=== PATIENT | male | born 1945 | race Caucasian/White ===

== ENCOUNTER 2018-07-31 12:12 | Inpatient (IN) | payer BC, MEDICARE ==
[~2018-07-31] VITALS: Ht 175.3 cm; Wt 104.8 kg
[~2018-07-31 12:12] MED LIST: ALCLOMETASONE D15 GM SUBD; AMBIEN10 MG PO; ASPIR 8181 MG PO; AXIRON; AZITHROMYCIN250 MG PO; BACLOFEN10 MG PO; BUDESONIDE0.5 MG/2 M NEB; CALTRATE PO; CLEARLAX17 GM; CLOBETASOL1 EA/15 GM TOP; COLACE100 M1 PO; COUMADIN2 MG PO; COUMADIN2.5 MG PO; COUMADIN5 MG PO; CYMBALTA30 MG PO; FISH OIL OMEGA1 EACH PO; FOLIC ACID1 MG PO; FUROSEMIDE40 MG PO; HYDROCODON-ACE1 EAC9 PO; HYDROCODONE-AP1 EACH PO; HYDROMORPHONE HC2 MG PO; HYPER-SAL4 M1; IBUPROFEN400 MG PO; K-DUR20 ME2 PO; LASIX40 MG PO; LATANOPROST2.5 ML OU; LEVOTHYROXINE50 MCG PO; LIOTHYRONINE SO5 MCG PO; LOPRESSOR25 MG PO; MARCAINE; METOPROLOL TART25 MG PO; MIRALAX17 GM PO; MORPHINE PUMP; PERFOROMIS20 MCG/2 M INH; PRANDIN1 MG PO; PREDNISONE20 MG PO; PROAIR HFA INH8.5 GM INH; PROVENTIL 0.083%3 ML INH; SOMA350 MG PO; TESTOPEL75 MG; TORSEMIDE20 MG PO; TRADJENTA5 MG PO; VITAMIN B-122000 MCG; VITAMIN D32000 UNIT PO; WARFARIN SODIUM5 MG PO; Z.0.AMBIEN CR12.5 MG PO; Z.0.ASPIRIN325 MG PO; Z.0.CARISOPRODOL350 PO; Z.0.FUROSEMIDE40 MG PO; Z.0.LATANOPROST2.5 M OP; Z.0.MULTIVITAMINS1 E PO; Z.0.OMEPRAZOLE40 MG PO; Z.0.TAMSULOSIN HCL0. PO; Z.0.TRILIPIX135 MG PO; [UNRECOGNIZED DRUG - OTHER]; [UNRECOGNIZED DRUG - OTHER] INH; [UNRECOGNIZED DRUG - OTHER] PO; [UNRECOGNIZED DRUG - OTHER] PO
[2018-07-31 13:58] LABS: BASOPHILS # (AUTO) 0.1 (0.0-0.1); BASOPHILS % 0.6 % (0.0-1.0); EOSINOPHILS # (AUTO) 0.2 (0.0-0.4); HEMATOCRIT 51.4 % (38.2-49.6); HEMOGLOBIN 15.1 g/dL (14.0-18.0); LYMPHOCYTES % 19.8 % (18.0-39.1); MEAN CORPUSCULAR HEMOGLOBIN 24.4 pg (28-32); MEAN CORPUSCULAR HGB CONC 29.4 g/dL (31-35); MONOCYTES # (AUTO) 1.1 (0.2-0.8); MONOCYTES % 10.8 % (4.4-11.3); NEUTROPHILS # (AUTO) 6.5 (2.1-6.9); NEUTROPHILS % 66.3 % (38.7-80.0); PLATELET COUNT 271 x10e3/uL (140-360); RED BLOOD COUNT 6.19 x10e6/uL (4.3-5.7); RED CELL DISTRIBUTION WIDTH 17.8 % (11.7-14.4)
[2018-07-31 14:03] VITALS: BP 98/55
[2018-07-31 14:10] LABS: INR 2.67; PROTHROMBIN TIME 30.4 seconds (11.9-14.5)
[2018-07-31 14:15] LABS: ANION GAP 15.1 mmol/L (8-16); CALCIUM 9.8 mg/dL (8.4-10.2); CREATININE, SERUM 2.52 mg/dL (0.72-1.25); POTASSIUM 4.1 mmol/L (3.5-5.1)
[2018-07-31] MEDS ORDERED: PANTOPRAZOLE SO40 MG PO (14:20)
[2018-07-31] MEDS ORDERED: SERTRALINE HCL50 MG PO (14:20)
[2018-07-31] MEDS ORDERED: COSENTYX IM (14:20)
[2018-07-31] MEDS ORDERED: RAPATHA IJ (14:20)
[2018-07-31] MEDS ORDERED: FEROCON CAPSUL1 EACH PO (14:20)
[2018-07-31] MEDS ORDERED: VICTOZA 3-0.6 MG/0.1 IJ (14:20)
[2018-07-31] MEDS ORDERED: ROPINIROLE HC0.25 MG PO (14:20)
[2018-07-31] MEDS ORDERED: MYRBETRIQ50 MG PO (14:20)
[2018-07-31] MEDS ORDERED: HYDROMORPHONE HCL 2 MG TAB PO PRN (14:30)
[2018-07-31] MEDS ORDERED: CYANOCOBALAMIN 2000 MCG SCH (14:30)
[2018-07-31] MEDS ORDERED: CYANOCOBALAMIN 2000 MCG PO SCH (14:30)
[2018-07-31] MEDS ORDERED: CARISOPRODOL 350 MG TAB PO PRN (14:30)
[2018-07-31] MEDS ORDERED: ALBUTEROL SULF 0.083% NEB SOLN 3 ML NEB INH SCH ×2 (14:30→21:00)
[2018-07-31] MEDS ORDERED: TAMSULOSIN HCL 0.4 MG CAP PO SCH (14:30)
[2018-07-31] MEDS ORDERED: CHOLECALCIFEROL 6000 UNIT PO SCH (14:30)
[2018-07-31] MEDS ORDERED: POTASSIUM CHLORIDE 20 MEQ TAB CR PO SCH (14:30)
[2018-07-31] MEDS ORDERED: ALBUTEROL SULFATE HFA 8GM INHALATION AEROSOL INH SCH (15:00)
[2018-07-31] MEDS ORDERED: BACLOFEN 10 MG TAB PO SCH (15:00)
[2018-07-31] MEDS ORDERED: FUROSEMIDE INJ 10 MG/ML 4 ML VIAL IV ONE (15:15)
--- NOTE | 2018-07-31 15:37 | Diagnostic Imaging Report ---
EXAM: Renal Ultrasound COMPARISON: CT Abdomen/Pelvis 09/22/2012. TECHNIQUE: Transverse and longitudinal images of the kidneys and bladder were obtained. FINDINGS: Right Kidney: Length: Measures 11.2 cm Appearance: Normal echogenicity. Collecting system: No hydronephrosis Stones: None Cyst/Mass: There is an anechoic lesion measuring up to 2.4 cm in the inferior pole of the right kidney. Left Kidney: Length: Measures 12 cm Appearance: Normal echogenicity. Collecting system: No hydronephrosis Stones: None Cyst/Mass: There are 3 anechoic lesions measuring up to 3 cm in the inferior pole of the left kidney, 1.9 cm in the inferior pole of left kidney, and 3 cm in the mid pole of the left kidney. Bladder: Unremarkable in appearance. Bilateral ureteral jets are seen. IMPRESSION: Bilateral simple appearing renal cysts. Otherwise unremarkable renal ultrasound. Signed by: Dr. Roxanne Gonzalez MD on 07/31/2018 3:34 PM
[2018-07-31 16:12] VITALS: BP 109/67
[2018-07-31] MEDS ORDERED: SODIUM CHLORIDE 0.9% 1000ML 1,000 ML IV SCH (16:45)
--- NOTE | 2018-07-31 16:51 | Diagnostic Imaging Report ---
Frontal and lateral views of the chest, 4 total views. HISTORY: Acute CHF COMPARISON: Chest radiograph June 05, 2017 DISCUSSION: Lungs: The lungs are hyperinflated. No evidence of a consolidative pneumonia or pulmonary alveolar edema. Mild left basilar atelectasis versus scarring. Pleura: No pleural effusion or pneumothorax. Heart and mediastinum: The cardiomediastinal silhouette appears unremarkable. Bones: Accentuation of the thoracic kyphosis. DISH (Diffuse idiopathic skeletal hyperostosis). Multiple healed left-sided rib fracture deformities. IMPRESSION: 1. Findings compatible with obstructive lung disease. 2. Minimal interstitial pulmonary edema is possible in the setting of volume overload, but there is no evidence of alveolar pulmonary edema. Signed by: Dr. John Mcgee D.O., M.M.M. on 07/31/2018 4:48 PM
[2018-07-31] MEDS ORDERED: NON-FORMULARY MEDICATION (Omega-3/Dha/Epa/Fish Oil (Fish Oil Omega-3 Softgel) 1 TAB) PO SCH (17:00)
[2018-07-31] MEDS ORDERED: WARFARIN SOD 5 MG TAB PO SCH (17:00)
[2018-07-31] MEDS ORDERED: WARFARIN SOD 2 MG TAB PO SCH ×2 (17:00)
[2018-07-31] MEDS ORDERED: [UNRECOGNIZED DRUG - OTHER] SCH (17:00)
[2018-07-31] MEDS ORDERED: SODIUM CHLORIDE FOR INHALATION SCH (17:00)
[2018-07-31] MEDS: WARFARIN SOD 3 MG TAB PO SCH (17:06)
--- NOTE | 2018-07-31 17:33 | Consultation ---
DATE OF CONSULTATION: July 31, 2018 PULMONARY MEDICINE CONSULT REFERRING PHYSICIAN: Dr. Mcguire. PRIMARY CARE PHYSICIAN: Dr. Christopher Summers. HISTORY: Mr. Sharma is a pleasant 72-year-old gentleman with shortness of breath. The patient was recently having shortness of breath. The patient is well known to me in my clinic for asthmatic bronchitis, COPD. The patient recently with a little bit of subjective weight gain, some mild swelling to the legs. The patient presented to [facility] and with pattern of worsening he was sent to the hospital for further evaluation. The patient had some pain medicines, IV Lasix. He was ordered for a chest x-ray. He was placed in the hospital under telemetry monitoring and I was consulted. PAST MEDICAL HISTORY: CHF, LVEF 64%, but no high evidence of pulmonary hypertension. On August 19, 2017, echo appeared atrial fibrillation. Chronic kidney disease, hypertension, asthma/COPD. Diabetes. Hypothyroidism. BPH. Obstructive sleep apnea. Significant periodic limb movements in sleep. MEDICATIONS: Medication list reviewed per electronic records. ALLERGIES: NO KNOWN DRUG ALLERGIES. SOCIAL HISTORY: No drinking, no smoking, no drugs. FAMILY HISTORY: Noncontributory. REVIEW OF SYSTEMS: GENERAL: No weight changes. OPHTHALMOLOGIC: No double vision. ENT: No aphthous ulcers. ENDOCRINE: No thyroid abnormalities recently. PULMONARY: No hemoptysis. CARDIAC: No recent MIs. GI: No constipation. : No blood in the urine, possible retention. MUSCULOSKELETAL: Moderate arthritis. DERMATOLOGIC: No rashes. LABORATORY DATA: White count 10, hematocrit 51, 271,000 platelets. INR 2.67. Potassium 4.1. BUN 41, creatinine 2.5 with baseline of about 1.3 to 1.4 creatinine recently. CK level 1850. CK-MB 50. Troponin 0.011. IMPRESSION 1. Suspect congestive heart failure exacerbation, although not ruled in yet. Chest x-ray pending. Asthma/chronic obstructive pulmonary disease with exacerbation. 1. Mild cardiac enzyme elevation, possible acute coronary syndrome. 2. . 3. Periodic limb movements in sleep, severe. 4. Atrial fibrillation. 5. Chronic kidney disease/acute kidney injury. 6. Hypertension. 7. Diabetes. 8. Hypothyroidism history. 9. Benign prostatic hypertrophy, possible retention. PLAN: Give at least one dose of steroids and will follow up tomorrow. If he is better, he may be able to ____ steroids tomorrow. Bronchodilators to be given and monitored to ensure the optimal dose. Follow up with cardiology workup and assessment. Followup chest x-ray to be done now. I agree with the diuretics and so far his blood pressure has been low normal so will have to follow up for blood pressure affects. Considerations could be for pulmonary hypertension despite recent echo not suggesting this or other consideration could be left-sided heart failure. Will follow along closely. I will discuss with him to see how he handles the sleep apnea and the PLMS while he is here in the hospital. Thank you very much, Dr. Mcguire, for this consult. Do not hesitate to contact me if I can help in any way. Job#: [id number]
[2018-07-31] MEDS ORDERED: FUROSEMIDE 40 MG TAB PO SCH (18:00)
[2018-07-31 18:55] VITALS: BP 99/56
[2018-07-31] MEDS: BUDESONIDE 0.5MG/2 ML NEB NEB SCH (19:45)
[2018-07-31] MEDS: ALBUTEROL SULF 0.083% NEB SOLN 3 ML NEB INH SCH (19:45)
[2018-07-31] MEDS ORDERED: FUROSEMIDE INJ 10 MG/ML 4 ML VIAL IV SCH (20:00)
[2018-07-31] MEDS: METOPROLOL TARTRATE 25 MG TAB PO SCH (20:00)
[2018-07-31] MEDS ORDERED: SODIUM CHLORIDE 0.9% INH SCH (20:00)
[2018-07-31] MEDS ORDERED: SODIUM CHLORIDE 3% FOR INHALATION 15 ML NEB IH SCH ×2 (20:00)
[2018-07-31] MEDS ORDERED: SODIUM CHLORIDE FOR INHALATION INH PRN (20:30)
[2018-07-31] MEDS ORDERED: [UNRECOGNIZED DRUG - OTHER] INH PRN (20:30)
[2018-07-31] MEDS ORDERED: SODIUM CHLORIDE 3% FOR INHALATION 15 ML NEB IH PRN (20:45)
[2018-07-31] MEDS ORDERED: SODIUM CHLORIDE 0.9% INH PRN (20:45)
[2018-07-31] MEDS: LATANOPROST(OPTH) 2.5 ML BTL OU SCH (20:45)
[2018-07-31] MEDS: FOLIC ACID 1 MG TAB PO SCH (20:46)
[2018-07-31] MEDS: TAMSULOSIN HCL 0.4 MG CAP PO SCH (20:46)
[2018-07-31] MEDS: BACLOFEN 10 MG TAB PO SCH (20:46)
[2018-07-31] MEDS: OMEGA 3 POLYUNSAT FATTY ACIDS 1000 MG SOFTGEL PO SCH (20:47)
[2018-07-31] MEDS: CHOLECALCIFEROL 1,000 UNIT TAB PO SCH (20:47)
[2018-07-31] MEDS: ROPINIROLE HCL 0.25 MG TAB PO SCH (20:47)
[2018-07-31] MEDS: PANTOPRAZOLE SOD 40 MG TABEC PO SCH (20:47)
[2018-07-31] MEDS: SERTRALINE HCL 50 MG TAB PO SCH (20:47)
[2018-07-31 21:33] VITALS: BP 99/56
[2018-07-31 23:00] VITALS: BP 109/57
[2018-08-01 04:45] VITALS: BP 135/55
[2018-08-01 05:21] LABS: BILIRUBIN,URINE NEGATIVE (NEGATIVE); CLARITY,URINE CLEAR (CLEAR); COLOR,URINE YELLOW (YELLOW); KETONES,URINE NEGATIVE (NEGATIVE); LEUKOCYTE ESTERASE ,URINE 1+ (NEGATIVE); NITRITE,URINE NEGATIVE (NEGATIVE); PROTEIN,URINE DIPSTICK NEGATIVE (NEGATIVE); URINE UROBILINOGEN 0.2 mg/dL (0.2 - 1)
[2018-08-01 05:27] LABS: BACTERIA,URINE FEW /HPF; EPITHELIAL CELLS,URINE FEW /LPF
[2018-08-01 05:34] LABS: BASOPHILS # (AUTO) 0.1 (0.0-0.1); BASOPHILS % 0.6 % (0.0-1.0); EOSINOPHILS # (AUTO) 0.2 (0.0-0.4); EOSINOPHILS % 2.3 % (0.0-6.0); HEMATOCRIT 47.5 % (38.2-49.6); HEMOGLOBIN 14.2 g/dL (14.0-18.0); LYMPHOCYTES # (AUTO) 1.7 (1.0-3.2); LYMPHOCYTES % 21.4 % (18.0-39.1); MEAN CORPUSCULAR HEMOGLOBIN 24.6 pg (28-32); MEAN CORPUSCULAR HGB CONC 29.9 g/dL (31-35); MEAN CORPUSCULAR VOLUME 82.3 fL (81-99); MONOCYTES % 12.4 % (4.4-11.3); NEUTROPHILS # (AUTO) 5.1 (2.1-6.9); NEUTROPHILS % 62.9 % (38.7-80.0); PLATELET COUNT 213 x10e3/uL (140-360); RED BLOOD COUNT 5.77 x10e6/uL (4.3-5.7); RED CELL DISTRIBUTION WIDTH 17.2 % (11.7-14.4)
[2018-08-01 05:35] LABS: CREATININE,URINE RANDOM 61.99 mg/dL (63-166)
[2018-08-01 05:42] LABS: POTASSIUM,URINE 24.1 mmol/L
[2018-08-01 05:43] LABS: INR 2.66; PROTHROMBIN TIME 30.3 seconds (11.9-14.5)
[2018-08-01] MEDS: LEVOTHYROXINE SODIUM 100 MCG TAB PO SCH (05:45)
[2018-08-01 05:50] LABS: ALBUMIN 3.4 g/dL (3.5-5.0); ALBUMIN/GLOBULIN RATIO 1.3 (0.8-2.0); ANION GAP 11.9 mmol/L (8-16); CALCIUM 9.8 mg/dL (8.4-10.2); CREATININE, SERUM 2.23 mg/dL (0.72-1.25); POTASSIUM 3.9 mmol/L (3.5-5.1)
[2018-08-01 06:16] LABS: THYROID STIMULATING HORMONE 1.215 uIU/mL (0.350-4.940)
[2018-08-01] MEDS: LIOTHYRONINE SODIUM 5 MCG TAB PO SCH (07:46)
[2018-08-01] MEDS: BACLOFEN 10 MG TAB PO SCH ×3 (07:46→20:40)
[2018-08-01] MEDS: ASPIRIN 81 MG CHEW TAB PO SCH (07:46)
[2018-08-01] MEDS: FOLIC ACID 1 MG TAB PO SCH ×2 (07:46→20:40)
[2018-08-01] MEDS: IRON-VITAMIN-MINERAL CAPSULE PO SCH (07:46)
[2018-08-01] MEDS: OMEGA 3 POLYUNSAT FATTY ACIDS 1000 MG SOFTGEL PO SCH ×2 (07:47→20:40)
[2018-08-01] MEDS: NON-FORMULARY MEDICATION (Mirabegron (Myrbetriq) 50 MG) PO SCH (07:47)
[2018-08-01] MEDS: NON-FORMULARY MEDICATION (Liraglutide (Victoza 3-Pak) 1.8 MG) IJ SCH (07:47)
[2018-08-01 07:50] VITALS: BP 106/61
[2018-08-01] MEDS: METOPROLOL TARTRATE 25 MG TAB PO SCH ×2 (07:50→20:40)
[2018-08-01] MEDS ORDERED: POTASSIUM CHLORIDE 20 MEQ TAB CR PO SCH (08:00)
[2018-08-01] MEDS: BUDESONIDE 0.5MG/2 ML NEB NEB SCH ×2 (08:08→20:15)
[2018-08-01] MEDS: ALBUTEROL SULF 0.083% NEB SOLN 3 ML NEB INH SCH ×2 (08:08→20:15)
[2018-08-01] MEDS ORDERED: LEVOTHYROXINE SODIUM 50 MCG TAB PO SCH (09:00)
[2018-08-01] MEDS ORDERED: ASPIRIN 81 MG CHEW TAB PO SCH (09:00)
[2018-08-01 12:54] VITALS: BP 101/56
[2018-08-01] MEDS: FUROSEMIDE 40 MG TAB PO SCH (12:57)
[2018-08-01 17:00] VITALS: BP 120/69
[2018-08-01] MEDS: WARFARIN SOD 3 MG TAB PO SCH (17:00)
--- NOTE | 2018-08-01 19:18 | History and Physical ---
HISTORY OF PRESENT ILLNESS: Mr. Sharma is a 72-year-old male that is an office patient of ours that is well known to our practice. He has been complaining of shortness of breath, fatigue, and also muscle aches for the last week that has been worsening regardless of outpatient interventions with increase of diuretics. He has a pertinent past medical history of CHF, pulmonary hypertension, coronary artery disease, chronic renal failure, hypertension, asthma and COPD, diabetes, and BPH. He came into the ER per our request due to worsening shortness of breath and edema. REVIEW OF SYSTEMS: Patient denies any chest pain. He does endorse shortness of breath, orthopnea, worsening edema, and back pain. PAST MEDICAL HISTORY: As noted above. ALLERGIES: NO KNOWN DRUG ALLERGIES. SOCIAL HISTORY: He is , has one child. Not a smoker. Does not drink or use any illicit drugs. FAMILY HISTORY: Noncontributory. CARDIOVASCULAR MEDICATIONS Metoprolol 25 mg p.o. every 12 hours. Aspirin 81 mg p.o. daily. Warfarin 3 mg p.o daily. PHYSICAL EXAMINATION VITAL SIGNS: Temperature 97.1, pulse 93, respiratory rate 18, blood pressure 106/61, oxygen saturation 94% on 6 liters via mask. GENERAL: Alert and oriented x3, resting comfortably in bed, does not appear to be in any acute distress. LUNGS: Diminished breath sounds throughout. No wheezing. No rhonchi or crackles noted. CARDIOVASCULAR: Regular rate and rhythm. Systolic murmur present. ABDOMEN: Rounded, soft, nontender. EXTREMITIES: Lower extremities, 3+ pitting edema with some weeping noted. LABS: WBC 8.09, hemoglobin 14.2, hematocrit 47.5, platelets 213. Sodium 143, potassium 3.9, BUN 38, creatinine 2.23, GFR 29, glucose 141, creatine kinase 865 and on admission 1850, PT 30.3, INR 2.66. Telemetry; atrial fibrillation, rate controlled. Renal ultrasound from yesterday with bilateral simple appearing renal cysts, otherwise unremarkable. Chest x-ray from yesterday with findings compatible with obstructive lung disease, minimal interstitial pulmonary edema with possible setting of volume overload. No evidence of alveolar pulmonary edema. IMPRESSION 1. Congestive heart failure exacerbation. 2. Pulmonary hypertension. 3. Rhabdomyolysis. 4. Volume overload. 5. Worsening renal failure. 6. Hypertension. 7. Diabetes mellitus. 8. Hyperlipidemia. 9. Benign prostatic hypertrophy. 10. Coronary artery disease, status post left heart cath at beginning of the year with moderate disease. PLAN: Pulmonology and Renal consulted. Renal to manage volume management. Continue with the above-listed cardiac medication. Strict I's and O's. Fluid restriction. Creatine kinase improving. Continue to monitor hydration status. Maintain this patient on telemetry at all the times. We will continue to follow. Dictated by: Pinky Golden NP Job#: [id number] KAREN
[2018-08-01 20:26] VITALS: BP 108/55
[2018-08-01] MEDS: LATANOPROST(OPTH) 2.5 ML BTL OU SCH (20:39)
[2018-08-01 20:40] VITALS: BP 110/62
[2018-08-01] MEDS: PANTOPRAZOLE SOD 40 MG TABEC PO SCH (20:40)
[2018-08-01] MEDS: ROPINIROLE HCL 0.25 MG TAB PO SCH (20:40)
[2018-08-01] MEDS: CHOLECALCIFEROL 1,000 UNIT TAB PO SCH (20:40)
[2018-08-01] MEDS: TAMSULOSIN HCL 0.4 MG CAP PO SCH (20:40)
[2018-08-01] MEDS: SERTRALINE HCL 50 MG TAB PO SCH (20:40)
[2018-08-02] VITALS (7 sets, daily range): BP systolic 100–139; BP diastolic 59–71
--- NOTE | 2018-08-02 04:53 | Progress Note ---
DATE: August 01, 2018 PULMONARY MEDICINE PROGRESS NOTE SUBJECTIVE: Mr. Sharma was seen and examined at bedside. He continues to have slow progress. The leg edema is decreasing. Oxygen at 3 liters per minute by nasal cannula with good saturations. He was unable to tolerate BiPAP yesterday. He did have bowel movement yesterday. He has Macedo in place with visually yellow-colored urine. REVIEW OF SYSTEMS: No headaches. No bleeding. OBJECTIVE VITAL SIGNS: Afebrile. Vital signs noted per electronic record. GENERALLY: No acute distress, alert and calm. HEENT: Normocephalic, atraumatic. NECK: Supple. Throat midline. LUNGS: Bilateral air entry, rare rhonchi. CARDIOVASCULAR: S1 and S2. No murmurs, rubs, or gallops. ABDOMINAL: Soft and nontender. EXTREMITIES: No clubbing. No cyanosis. There is 2+, but decreased edema. INTEGUMENT: No rash. No purpura. LABS: Potassium 3.9, 38 BUN, and 2.2 creatinine. White count 8, 48 hematocrit, and 213 platelets. INR is 2.66. IMPRESSION 1. Obstructive sleep apnea/currently BiPAP intolerant. 2. Hypoxemia. 3. Kkogc-ot-yqpfygq kidney failure. 4. Fluid overload. 5. Asthma/chronic obstructive pulmonary disease with exacerbation, mild. 6. Periodic limb movements in sleep, severe. PLAN: Patient is deferring BiPAP for now. Continue oxygen. Head of bed elevation during sleep. Continue to ensure appropriate bowel movements. Patient will continue on ropinirole for the severe periodic limb movements to sleep. Follow up closely. Follow up the fluid output with Lasix on board and ensure creatinine gets better. We will follow along closely. Budesonide and albuterol for the lungs. Job#: [id number] VAS
[2018-08-02 05:29] LABS: INR 2.48; PROTHROMBIN TIME 28.7 seconds (11.9-14.5)
[2018-08-02 05:46] LABS: ALBUMIN 3.4 g/dL (3.5-5.0); ALBUMIN/GLOBULIN RATIO 1.3 (0.8-2.0); ANION GAP 7.3 mmol/L (8-16); CALCIUM 9.9 mg/dL (8.4-10.2); CREATININE, SERUM 1.68 mg/dL (0.72-1.25); POTASSIUM 3.3 mmol/L (3.5-5.1)
[2018-08-02 06:00] LABS: PHOSPHORUS 2.6 MG/DL (2.3-4.7)
[2018-08-02] MEDS: ALBUTEROL SULF 0.083% NEB SOLN 3 ML NEB INH SCH ×2 (07:30→19:00)
[2018-08-02] MEDS: BUDESONIDE 0.5MG/2 ML NEB NEB SCH ×2 (07:35→19:00)
[2018-08-02] MEDS: ASPIRIN 81 MG CHEW TAB PO SCH (08:00)
[2018-08-02] MEDS: METOPROLOL TARTRATE 25 MG TAB PO SCH ×2 (08:00→20:00)
[2018-08-02] MEDS: BACLOFEN 10 MG TAB PO SCH ×3 (08:00→20:00)
[2018-08-02] MEDS ORDERED: CYANOCOBALAMIN 1,000 MCG TAB PO SCH (08:00)
[2018-08-02] MEDS: OMEGA 3 POLYUNSAT FATTY ACIDS 1000 MG SOFTGEL PO SCH ×2 (08:00→20:00)
[2018-08-02] MEDS: IRON-VITAMIN-MINERAL CAPSULE PO SCH (08:00)
[2018-08-02] MEDS: LEVOTHYROXINE SODIUM 100 MCG TAB PO SCH (08:00)
[2018-08-02] MEDS: FOLIC ACID 1 MG TAB PO SCH ×2 (08:00→20:00)
[2018-08-02] MEDS: LIOTHYRONINE SODIUM 5 MCG TAB PO SCH (08:00)
[2018-08-02] MEDS: NON-FORMULARY MEDICATION (Mirabegron (Myrbetriq) 50 MG) PO SCH (08:00)
[2018-08-02] MEDS: NON-FORMULARY MEDICATION (Liraglutide (Victoza 3-Pak) 1.8 MG) IJ SCH (08:00)
[2018-08-02] MEDS: POTASSIUM CHLORIDE 20 MEQ TAB CR PO SCH (09:00)
[2018-08-02] MEDS: FUROSEMIDE 40 MG TAB PO SCH (09:00)
[2018-08-02] MEDS ORDERED: POTASSIUM CHLORIDE 20 MEQ TAB CR PO NR (10:30)
--- NOTE | 2018-08-02 11:42 | Progress Note ---
DATE: August 02, 2018 CARDIOLOGY PROGRESS NOTE SUBJECTIVE: Patient complains of back pain this morning and also some leg cramps. Denies any chest pain or shortness of breath. Does report some slight improvement in how he feels. OBJECTIVE VITAL SIGNS: Temperature 97.7, pulse 74, respiratory rate 18, oxygen saturation 97% on 6 liters nasal cannula, blood pressure 130/69. GENERAL: Alert and oriented x3, resting comfortably in bed, does not appear to be in any acute distress. LUNGS: Diminished breath sounds posterior lower lobes, otherwise clear to auscultation. CARDIOVASCULAR: Irregular rate and rhythm. Systolic murmur present. Normal S1, S2. ABDOMEN: Rounded, soft, nontender. EXTREMITIES: Lower extremities, 2+ pitting edema. CARDIOVASCULAR MEDICATIONS 1. Potassium chloride 20 mEq p.o. daily. 2. Lasix 40 p.o. daily. 3. Aspirin 81 mg p.o. daily. 4. Levothyroxine 100 mcg p.o. daily. 5. Metoprolol 25 p.o. q.12 hours. 6. Warfarin 3 mg p.o. daily. LABS: Sodium 140, potassium 3.3, BUN 29, creatinine 1.68, calcium 9.9. AST 19, ALT 14, creatine kinase 315. IMPRESSION 1. Congestive heart failure exacerbation. 2. Rhabdomyolysis. 3. Pulmonary hypertension. 1. Volume overload. 2. Acute renal failure. 3. Hypertension. 4. Diabetes mellitus. 5. Hyperlipidemia. 6. Benign prostatic hypertrophy. 7. Coronary artery disease with a recent heart catheterization with moderate disease. PLAN: Continue with current plan of care. Creatinine noted to be improving quite a bit. Continue with leg elevation and strict I's and O's. Fluid restrictions reinforced. Pain management per primary team. Patient has Dilaudid ordered p.r.n. for pain. Maintain on telemetry at all time. Dictated by: Pinky Golden NP Job#: [id number] GILDARDO
[2018-08-02] MEDS: WARFARIN SOD 3 MG TAB PO SCH (17:00)
[2018-08-02] MEDS: LATANOPROST(OPTH) 2.5 ML BTL OU SCH (19:58)
[2018-08-02] MEDS: TAMSULOSIN HCL 0.4 MG CAP PO SCH (20:00)
[2018-08-02] MEDS: PANTOPRAZOLE SOD 40 MG TABEC PO SCH (20:00)
[2018-08-02] MEDS: CHOLECALCIFEROL 1,000 UNIT TAB PO SCH (20:00)
[2018-08-02] MEDS: SERTRALINE HCL 50 MG TAB PO SCH (20:00)
[2018-08-02] MEDS: ROPINIROLE HCL 0.25 MG TAB PO SCH (20:00)
--- NOTE | 2018-08-03 04:30 | Progress Note ---
DATE: August 02, [address] Rosario. HISTORY OF PRESENT ILLNESS: The patient is a 72-year-old, admitted due to shortness of breath. Patient has a history of bronchial asthma versus COPD, history of CHF with left ventricular ejection fraction of 64%, atrial fibrillation, chronic kidney disease, hypertension, asthma, COPD, diabetes mellitus, hypothyroidism, benign prostatic hypertrophy, and obstructive sleep apnea. PHYSICAL EXAMINATION GENERAL: He is alert and cooperative, currently berthing okay. HEENT: Atraumatic. NECK: No tenderness. LUNGS: Crackles in the bases. HEART: No heart murmurs. ABDOMEN: Soft. EXTREMITIES: No pedal edema. LABORATORY DATA: CBC was unremarkable. Chemistry, BUN 41 and creatinine 2.5. CPK level 1850, CK-MB 50, and troponin I 0.011. IMPRESSION 1. Bronchial asthma. 2. Chronic obstructive pulmonary disease. 3. Congestive heart failure. 4. Atrial fibrillation. 5. Chronic kidney disease. 6. Hypertension. 7. Diabetes mellitus. 8. Hypothyroidism. 9. Benign prostatic hypertrophy. RECOMMENDATION: To continue with bronchodilators. Patient was given different medications including warfarin because of the atrial fibrillation. He has been treated for the heart failure and for other medical problems. So, my recommendation is to continue with albuterol few times a day as he reports a significant improvement of the breathing after the nebulization has been given. Job#: [id number] DARREN
[2018-08-03 05:15] VITALS: BP 119/66
[2018-08-03 05:55] LABS: INR 2.25; PROTHROMBIN TIME 26.6 seconds (11.9-14.5)
[2018-08-03 06:05] LABS: ALBUMIN 3.4 g/dL (3.5-5.0); ALBUMIN/GLOBULIN RATIO 1.2 (0.8-2.0); ANION GAP 10.6 mmol/L (8-16); CREATININE, SERUM 1.54 mg/dL (0.72-1.25); POTASSIUM 3.6 mmol/L (3.5-5.1)
[2018-08-03] MEDS: ALBUTEROL SULF 0.083% NEB SOLN 3 ML NEB INH SCH ×2 (07:15→19:35)
[2018-08-03] MEDS: BUDESONIDE 0.5MG/2 ML NEB NEB SCH ×2 (07:15→19:35)
[2018-08-03 08:00] VITALS: BP 124/72
[2018-08-03] MEDS: NON-FORMULARY MEDICATION (Liraglutide (Victoza 3-Pak) 1.8 MG) IJ SCH (08:00)
[2018-08-03] MEDS: NON-FORMULARY MEDICATION (Mirabegron (Myrbetriq) 50 MG) PO SCH (08:00)
[2018-08-03] MEDS: ASPIRIN 81 MG CHEW TAB PO SCH (09:06)
[2018-08-03] MEDS: BACLOFEN 10 MG TAB PO SCH ×3 (09:06→22:16)
[2018-08-03] MEDS: LEVOTHYROXINE SODIUM 100 MCG TAB PO SCH (09:06)
[2018-08-03] MEDS: IRON-VITAMIN-MINERAL CAPSULE PO SCH (09:06)
[2018-08-03] MEDS: OMEGA 3 POLYUNSAT FATTY ACIDS 1000 MG SOFTGEL PO SCH ×2 (09:06→22:17)
[2018-08-03] MEDS: FOLIC ACID 1 MG TAB PO SCH ×2 (09:06→22:16)
[2018-08-03] MEDS: LIOTHYRONINE SODIUM 5 MCG TAB PO SCH (09:06)
[2018-08-03] MEDS: METOPROLOL TARTRATE 25 MG TAB PO SCH ×2 (09:06→22:17)
[2018-08-03] MEDS: POTASSIUM CHLORIDE 20 MEQ TAB CR PO SCH (09:07)
[2018-08-03] MEDS: FUROSEMIDE 40 MG TAB PO SCH (09:07)
[2018-08-03 12:00] VITALS: BP 148/78
--- NOTE | 2018-08-03 14:46 | Progress Note ---
DATE: August 03, 2018 CARDIOLOGY PROGRESS NOTE SUBJECTIVE: Patient denies chest pain. He reports his shortness of breath is better. OBJECTIVE VITAL SIGNS: Temperature 96.5 degrees, pulse 80, respiratory rate 20, blood pressure 124/72, oxygen saturation 91% on 3 liters nasal cannula. GENERAL: Awake, alert, in no acute distress. LUNGS: Clear to auscultation bilaterally. No wheezes or crackles. CARDIOVASCULAR: Normal rate, irregularly irregular. Systolic murmur. Normal S1 and S2. ABDOMEN: Soft, nontender. EXTREMITIES: Trace edema. CARDIAC MEDICATIONS 1. Furosemide 40 mg p.o. daily. 2. Aspirin 81 mg p.o. daily. 3. Fish oil 1000 mg p.o. daily. 4. Levothyroxine 100 mcg p.o. daily. 5. Metoprolol tartrate 25 mg p.o. q.12 h. 6. Liothyronine 5 mcg p.o. daily. 7. Warfarin 3 mg p.o. daily. LABS: Sodium 141, potassium 3.6, chloride 94, CO2 40, BUN 23, creatinine 1.54. INR 2.25. TELEMETRY: Atrial fibrillation. IMPRESSION 1. Vlmdj-xw-tleqyqm diastolic heart failure. 2. Rhabdomyolysis. 3. Pulmonary hypertension. 4. Acute kidney injury, improving. 5. Hypertension. 6. Diabetes mellitus. 7. Hyperlipidemia. 8. Benign prostatic hypertrophy. 9. Coronary artery disease with recent cardiac catheterization with moderate disease. RECOMMENDATIONS: Continue current cardiac medications. Creatinine is improving. Strict I's and O's as well as daily weights. Maintain patient on telemetry. Job#: [id number] EV
[2018-08-03 16:00] VITALS: BP 108/66
--- NOTE | 2018-08-03 16:18 | Progress Note ---
DATE: August 03, 2018 The patient is a 72-year-old who was admitted due to shortness of breath. The patient has a history of asthma and COPD, and he was also showing signs of heart failure and needed to have IV Lasix with improvement. On August 19, he had temporary atrial fibrillation. He has history of chronic kidney disease, hypertension, diabetes mellitus, hypothyroidism, benign prostatic hypertrophy, obstructive sleep apnea, although he does not like to use the BiPAP. OBJECTIVE: GENERAL: He is alert and cooperative. HEENT: Atraumatic. NECK: No tenderness. LUNGS: Clear. HEART: No heart murmurs. ABDOMEN: Soft. EXTREMITIES: No pedal edema. IMPRESSION: 1. Congestive heart failure. 2. Asthma. 3. Chronic obstructive pulmonary disease. 4. Atrial fibrillation. 5. Chronic kidney disease. 6. Hypertension. 7. Diabetes mellitus. 8. Hypothyroidism. 9. Benign prostatic hypertrophy. 10. Obstructive sleep apnea. RECOMMENDATIONS: I recommend to continue with bronchodilators. He is on steroids. He has been also on diuretics, and he besides that had other medication for the different medical problems. Overall, I agree with the current approach. Dictated by Lei Arteaga MD Job#: [id number]
[2018-08-03] MEDS: ACETAZOLAMIDE 250 MG TAB PO SCH (16:19)
[2018-08-03] MEDS ORDERED: WARFARIN SOD 3 MG TAB PO SCH (17:00)
[2018-08-03 20:00] VITALS: BP 121/56
[2018-08-03 21:00] VITALS: BP 121/56
[2018-08-03] MEDS: TAMSULOSIN HCL 0.4 MG CAP PO SCH (22:16)
[2018-08-03] MEDS: SERTRALINE HCL 50 MG TAB PO SCH (22:17)
[2018-08-03] MEDS: ROPINIROLE HCL 0.25 MG TAB PO SCH (22:17)
[2018-08-03] MEDS: PANTOPRAZOLE SOD 40 MG TABEC PO SCH (22:17)
[2018-08-03] MEDS: CHOLECALCIFEROL 1,000 UNIT TAB PO SCH (22:17)
[2018-08-03] MEDS: LATANOPROST(OPTH) 2.5 ML BTL OU SCH (22:20)
[2018-08-04] VITALS (8 sets, daily range): BP systolic 91–110; BP diastolic 50–68
[2018-08-04 05:52] LABS: INR 2.25; PROTHROMBIN TIME 26.6 seconds (11.9-14.5)
[2018-08-04 06:50] LABS: ALBUMIN 3.5 g/dL (3.5-5.0); ALBUMIN/GLOBULIN RATIO 1.3 (0.8-2.0); CALCIUM 7.9 mg/dL (8.4-10.2); CREATININE, SERUM 1.56 mg/dL (0.72-1.25); POTASSIUM 3.4 mmol/L (3.5-5.1)
[2018-08-04] MEDS: ALBUTEROL SULF 0.083% NEB SOLN 3 ML NEB INH SCH ×3 (07:10→20:15)
[2018-08-04] MEDS: BUDESONIDE 0.5MG/2 ML NEB NEB SCH ×3 (07:15→20:15)
[2018-08-04] MEDS: NON-FORMULARY MEDICATION (Mirabegron (Myrbetriq) 50 MG) PO SCH (08:00)
[2018-08-04] MEDS: NON-FORMULARY MEDICATION (Liraglutide (Victoza 3-Pak) 1.8 MG) IJ SCH (08:00)
[2018-08-04 08:36] LABS: ANION GAP 16.4 mmol/L (8-16)
[2018-08-04] MEDS: OMEGA 3 POLYUNSAT FATTY ACIDS 1000 MG SOFTGEL PO SCH ×2 (08:51→19:52)
[2018-08-04] MEDS: ACETAZOLAMIDE 250 MG TAB PO SCH (08:51)
[2018-08-04] MEDS: BACLOFEN 10 MG TAB PO SCH ×3 (08:51→19:52)
[2018-08-04] MEDS: FOLIC ACID 1 MG TAB PO SCH ×2 (08:51→19:52)
[2018-08-04] MEDS: IRON-VITAMIN-MINERAL CAPSULE PO SCH (08:51)
[2018-08-04] MEDS: LEVOTHYROXINE SODIUM 100 MCG TAB PO SCH (08:51)
[2018-08-04] MEDS: METOPROLOL TARTRATE 25 MG TAB PO SCH ×2 (08:51→21:13)
[2018-08-04] MEDS: LIOTHYRONINE SODIUM 5 MCG TAB PO SCH (08:51)
[2018-08-04] MEDS: ASPIRIN 81 MG CHEW TAB PO SCH (08:51)
[2018-08-04] MEDS: POTASSIUM CHLORIDE 20 MEQ TAB CR PO SCH (08:52)
[2018-08-04] MEDS: FUROSEMIDE 40 MG TAB PO SCH (08:52)
[2018-08-04 09:09] LABS: MAGNESIUM 1.8 MG/DL (1.3-2.1); PHOSPHORUS 2.9 MG/DL (2.3-4.7)
--- NOTE | 2018-08-04 09:46 | Progress Note ---
DATE: August 04, 2018 Feeling okay. He says his breathing is at baseline. PHYSICAL EXAMINATION: VITAL SIGNS: Temperature is 97.7; pulse 70, sounds regular at this time; blood pressure is 106/57. HEENT: Atraumatic. NECK: Unable to see JVD. CHEST: Clear. Bilateral breath sounds are equal. CARDIAC: Normal heart tones. Faint systolic murmur. Rhythm is irregular today. EXTREMITIES: Trace edema. MEDICATIONS: Reviewed. ASSESSMENT: 1. Acute kidney injury, improved, probably chronic kidney disease stage 3. 2. Fluid overload better compensated (history of congestive heart failure). 3. reasonable blood pressures. 4. Pulmonary hypertension, which complicates the diuresis. PLAN: Appears to be reasonably compensated. Leave on current diuretics. For the time being, we can also probably go ahead and stop the Diamox, liberalize potassium intake. He is on potassium replacement since about 2 days ago. Will go ahead and stop the Diamox and add low-dose Aldactone. Job#: [id number] DR CLEMENT
[2018-08-04] MEDS ORDERED: FUROSEMIDE INJ 10 MG/ML 4 ML VIAL IV SCH (11:45)
[2018-08-04] MEDS ORDERED: FUROSEMIDE INJ 10 MG/ML 4 ML VIAL IV ONE (12:00)
--- NOTE | 2018-08-04 12:35 | Progress Note ---
DATE: August 04, 2018 CARDIOLOGY PROGRESS NOTE SUBJECTIVE: Patient denies chest pain. He reports his breathing is better. OBJECTIVE VITAL SIGNS: Temperature 97.8 degrees, pulse 68, respiratory rate 28, blood pressure 100/68, oxygen saturation 96% on 3 liters nasal cannula. GENERAL: Awake, alert, in no acute distress. LUNGS: Clear to auscultation bilaterally. No wheezes or crackles. CARDIOVASCULAR: Normal rate. Irregular rhythm. Systolic murmur. Normal S1 and S2. ABDOMEN: Soft and nontender. EXTREMITIES: Trace edema. CARDIAC MEDICATIONS 1. Furosemide 40 mg p.o. daily. 2. Potassium 20 mg p.o. daily. 3. Aspirin 81 mg p.o. daily. 4. Levothyroxine 100 mcg p.o. daily. 5. Metoprolol tartrate 25 mg p.o. q.12 hour. 6. Liothyronine 5 mcg p.o. daily. 7. Warfarin 3 mg p.o. daily with additional 3 mg on Mondays. LABS: Sodium 140, potassium 3.4, chloride 97, CO2 of 28, BUN 20, creatinine 1.56, INR 2.25. TELEMETRY: Atrial fibrillation, rate controlled. IMPRESSION 1. Vpduq-lx-xpxeszc diastolic heart failure. 2. Rhabdomyolysis. 3. Pulmonary hypertension. 4. Acute kidney injury, improving. 5. Hypertension. 6. Diabetes mellitus. 7. Hyperlipidemia. 8. Benign prostatic hypertrophy. 9. Coronary artery disease with recent cardiac catheterization with moderate disease. RECOMMENDATIONS: Continue current cardiac medications. Nephrology has added Aldactone. Monitor creatinine closely. Strict I's and O's as well as daily weights. Maintain patient on telemetry. Patient will be likely discharged in the next day. Job#: [id number] CARMEN
[2018-08-04] MEDS: WARFARIN SOD 3 MG TAB PO SCH (16:36)
[2018-08-04] MEDS ORDERED: FUROSEMIDE INJ 10 MG/ML 2 ML VIAL IV ONE (17:00)
[2018-08-04] MEDS: LATANOPROST(OPTH) 2.5 ML BTL OU SCH (19:52)
[2018-08-04] MEDS: PANTOPRAZOLE SOD 40 MG TABEC PO SCH (19:52)
[2018-08-04] MEDS: TAMSULOSIN HCL 0.4 MG CAP PO SCH (19:52)
[2018-08-04] MEDS: CHOLECALCIFEROL 1,000 UNIT TAB PO SCH (19:52)
[2018-08-04] MEDS: SERTRALINE HCL 50 MG TAB PO SCH (21:13)
[2018-08-04] MEDS: ROPINIROLE HCL 0.25 MG TAB PO SCH (21:13)
[2018-08-05 05:05] VITALS: BP 115/60
[2018-08-05 05:42] LABS: INR 2.38; PROTHROMBIN TIME 27.8 seconds (11.9-14.5)
[2018-08-05 05:57] LABS: ALBUMIN 3.5 g/dL (3.5-5.0); ALBUMIN/GLOBULIN RATIO 1.3 (0.8-2.0); ANION GAP 13.3 mmol/L (8-16); CREATININE, SERUM 1.85 mg/dL (0.72-1.25); POTASSIUM 5.3 mmol/L (3.5-5.1)
[2018-08-05] MEDS: NON-FORMULARY MEDICATION (Liraglutide (Victoza 3-Pak) 1.8 MG) IJ SCH (08:00)
[2018-08-05] MEDS: NON-FORMULARY MEDICATION (Mirabegron (Myrbetriq) 50 MG) PO SCH (08:00)
[2018-08-05 08:01] VITALS: BP 122/71
[2018-08-05] MEDS ORDERED: SOD POLYSTYRENE SULFONATE SUSP 15 GM/60 ML BTL PO ONE (08:15)
[2018-08-05] MEDS: FUROSEMIDE 40 MG TAB PO SCH (08:23)
[2018-08-05] MEDS: BACLOFEN 10 MG TAB PO SCH (08:23)
[2018-08-05] MEDS: FOLIC ACID 1 MG TAB PO SCH (08:23)
[2018-08-05] MEDS: IRON-VITAMIN-MINERAL CAPSULE PO SCH (08:23)
[2018-08-05] MEDS: ASPIRIN 81 MG CHEW TAB PO SCH (08:23)
[2018-08-05] MEDS: OMEGA 3 POLYUNSAT FATTY ACIDS 1000 MG SOFTGEL PO SCH (08:24)
[2018-08-05] MEDS: LEVOTHYROXINE SODIUM 100 MCG TAB PO SCH (08:24)
[2018-08-05] MEDS: METOPROLOL TARTRATE 25 MG TAB PO SCH (08:24)
[2018-08-05] MEDS: ALBUTEROL SULF 0.083% NEB SOLN 3 ML NEB INH SCH (08:27)
[2018-08-05] MEDS: BUDESONIDE 0.5MG/2 ML NEB NEB SCH (08:33)
--- NOTE | 2018-08-05 08:55 | Progress Note ---
DATE: 08/05/2018 PULMONARY CRITICAL CARE PROGRESS NOTE I am covering for Dr. Rosario today. Dyspnea has improved. He has less congestion and less cough. He does not have chest pain or fevers. PHYSICAL EXAMINATION VITALS: Blood pressure is 115/60 and the heart rate is 69, respiratory rate is 18 with saturation 98%. HEENT: Shows no facial swelling or erythema. The oropharynx is normal. LYMPHATICS: Shows no submandibular, cervical or supraclavicular adenopathy. CARDIAC: Reveals a regular rate and rhythm with normal S1 and S2. LUNGS: Auscultation of the lungs reveals clear breath sounds bilaterally. ABDOMEN: Soft and nontender. There is no rebound or guarding. IMPRESSION 1. Usgzu-ee-ixtqccf congestive heart failure. 2. Chronic renal insufficiency with increase in creatinine. 3. Atrial fibrillation. 4. Chronic obstructive pulmonary disease. PLAN 1. Decrease diuretics because of increase in creatinine and potassium. 2. Continue cardiac regimen. 3. Continue anticoagulation and adjust warfarin as needed. 4. Bronchodilators. 5. Will discuss with cardiology and nephrology. Job#: [id number] PEDRO CLEMENT
[2018-08-05] MEDS ORDERED: SPIRONOLACTONE 25 MG TAB PO SCH (09:00)
[2018-08-05] MEDS: LIOTHYRONINE SODIUM 5 MCG TAB PO SCH (09:19)
[2018-08-05 11:17] VITALS: BP 163/89
[2018-08-05 11:40] VITALS: BP 94/56
[2018-08-10] MEDS ORDERED: RAPATHA IJ SCH (08:00)
--- OUTSIDE RECORDS SUMMARY | 2018-08-11 11:10 | XMS REPORT | Summary of Care ---
Author Author [facility] Organization [facility] Address Unknown Phone Unavailable Encounter HQ Cindy(LENY) [id number] Date(s): 06/24/16 - 06/24/16 [facility] [address] [place] [address]- [phone] Discharge Disposition: Home or Self Care Attending Physician: Fadi Kahn MD Referring Physician: Fadi Kahn MD Vital Signs No data available for this section Problem List Condition Effective Dates Status Health Status Informant Afib(Confirmed) Resolved Arthritis(Confirmed) Resolved COPD(Confirmed) Resolved Diabetes(Confirmed) Resolved Hypertension(Confirm Resolved ed) Neuropathy(Confirmed Resolved ) Seborrheic Resolved dermatitis(Confirmed ) Allergies, Adverse Reactions, Alerts Substance Reaction Severity Status NKDA Active Medications No data available for this section Results CHEM PANEL Most recent to 1 oldest [Reference Range]: eGFR 55 mL/min/1.73m2 1 *NA* (06/24/16 9:28 AM) POC Creatinine 1.3 mg/dL [0.5-1.4 mg/dL] (06/24/16 9:28 AM) 1Result Comment: The eGFR is calculated using the CKD-EPI formula. In most young, healthy individuals the eGFR will be >90 mL/min/1.73m2. The eGFR declines with age. An eGFR of 60-89 may be normal in some populations, particularly the elderly, for whom the CKD-EPI formula has not been extensively validated. Use of the eGFR is not recommended in the following populations: Individuals with unstable creatinine concentrations, including patients and those with serious co-morbid conditions. Patients with extremes in muscle mass or diet. The data above are obtained from the National Kidney Disease Education Program ( NKDEP) which additionally recommends that when the eGFR is used in patients with extremes of body mass index for purposes of drug dosing, the eGFR should be mul tiplied by the estimated BMI. Immunizations No data available for this section Procedures Procedure Date Related Diagnosis Body Site Catheter replacement Fusion1 Prostate manipulation Stent replacement 1cervical fusion done on 09/11/[address] Nilo Adames Social History Social History Type Response Smoking Status Never smoker; Ready to change: No; Concerns about tobacco use in household: No; Exposure to Tobacco Smoke None; Cigarette Smoking Last 365 Days No; Reg Smoking Cessation Counseling No Assessment and Plan No data available for this section
--- OUTSIDE RECORDS SUMMARY | 2018-08-11 11:10 | XMS REPORT | Summary of Care ---
Author Author [facility] Organization [facility] Address Unknown Phone Unavailable Encounter HQ Laine_randolph(FIN) [id number] Date(s): 04/23/17 - 04/23/17 [facility] [address] [place] [phone] Discharge Disposition: Home or Self Care Attending Physician: Mila Jones MD Vital Signs No data available for this section Problem List Condition Effective Dates Status Health Status Informant Afib(Confirmed) Resolved Arthritis(Confirmed) Resolved COPD(Confirmed) Resolved Diabetes(Confirmed) Resolved Hypertension(Confirm Resolved ed) Neuropathy(Confirmed Resolved ) Obesity(Confirmed) Active Seborrheic Resolved dermatitis(Confirmed ) Allergies, Adverse Reactions, Alerts Substance Reaction Severity Status NKDA Active Medications No data available for this section Results No data available for this section Immunizations No data available for this section [...]
--- OUTSIDE RECORDS SUMMARY | 2018-08-11 11:10 | XMS REPORT | Summary of Care ---
Author Author [facility] Address Unknown Phone Unavailable Encounter HQ Encntr_alias(FIN) [id number] Date(s): 04/23/16 - 04/23/16 [facility] [address] [facility], [address] [place] [phone] Discharge Disposition: Home Attending Physician: Monique Reed MD Vital Signs No data available for this section Problem List No data available for this section Allergies, Adverse Reactions, Alerts Substance Reaction Severity Status NKDA Active Medications No data available for this section Results No data available for this section Immunizations No data available for this section Procedures No data available for this section Social History Social History Type Response Assessment and Plan No data available for this section
--- OUTSIDE RECORDS SUMMARY | 2018-08-11 11:10 | XMS REPORT | Continuity of Care Document ---
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/20/2017 [facility] M54.9 DORSALGIA, UNSPECIFIED G95.9 DISE Active 06/12/2016 [facility] 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, UNSPECIFIE Active 04/04/2016 [facility] DX: M54.4=LUMBAGO WITH SCIATICA, UNSPECI Active 03/26/2016 [facility] R53.1 - WEAKNESS Active 03/18/2016 [facility] Spinal stenosis, lumbar region without neurogenic claudication 03/12/2018 [facility] Spinal stenosis, cervical region 03/12/2018 [facility] Spinal stenosis, cervicothoracic region 03/12/2018 [facility] Afib Resolved Problem 03/12/2018 [facility] [place] Arthritis Resolved Problem 03/12/2018 [facility] [place] COPD Resolved Problem 03/12/2018 [facility] [place] Diabetes Resolved Problem 03/12/2018 [facility] [place] Hypertension Resolved Problem 03/12/2018 [facility] [place] Neuropathy Resolved Problem 03/12/2018 [facility] [place] Obesity Active Problem 03/12/2018 [facility] [place] Seborrheic dermatitis Resolved Problem 03/12/2018 [facility] [place] DORSALGIA, UNSPECIFIED Active [facility] DISEASE OF SPINAL CORD, UNSPECIFIED Active [facility] Medications Medication Details Route Status Patient Instructions Ordering Provider Order Date Source Allergies, Adverse Reactions, Alerts Substance Category Reaction Severity Reaction type Status Date Reported Comments Source Immunizations Immunization Date Given Site Status Last Updated Comments Source Results Order Name Results Value Reference Range Date Interpretation Comments Source Spine lumbar wo contrast MRI Spine lumbar wo contrast MRI Study: Spine lumbar wo contrast MRI Clinical Indication: G25.3 Myoclonus - . Comparison: None TECHNIQUE: Multiplanar, multisequence magnetic resonance imaging of the lumbar spine was performed without the administration of intravenous gadolinium contrast. FINDINGS: 5 nonrib-bearing lumbar vertebra are present. No acute compression fracture or subluxation is seen. No vertebral body marrow edema is noted. No pars interarticularis defects are seen. Scattered Modic type II degenerative endplate changes throughout the lumbar spine are seen. The discs are mildly desiccated throughout the lumbar spine. Mild disc height loss at L5-S1 is seen. The conus terminates at the thoracolumbar junction. Bilateral renal simple cysts are noted. Findings by level: T12-L1: Negative for significant disc bulge or protrusion. Mild facet arthrosis is seen. There is no spinal canal stenosis or neural foraminal narrowing. L1-L2: Negative for significant disc bulge or protrusion. Moderate facet arthrosis and ligamentum flavum hypertrophy is seen. There is no spinal canal stenosis or neural foraminal narrowing. L2-L3: Negative for significant disc bulge or protrusion. Mild facet arthrosis and ligamentum flavum hypertrophy is seen. There is no spinal canal stenosis or neural foraminal narrowing. L3-L4: Negative for significant disc bulge or protrusion. Mild facet arthrosis and ligamentum flavum hypertrophy is seen. There is no spinal canal stenosis or neural foraminal narrowing. L4-L5: Moderate-sized asymmetric circumferential disc osteophyte complex is seen, eccentric to the left. Moderate-severe facet arthrosis is noted. There is mild spinal canal stenosis with mild bilateral neural foraminal narrowing. L5-S1: Small annular disc bulge is seen with superimposed central annular fissure. Moderate facet arthrosis is seen. There is no spinal canal stenosis or neural foraminal narrowing. The cauda equina and nerve roots are unremarkable. IMPRESSION: 1. Degenerative changes of the lower lumbar spine with mild spinal canal stenosis and mild bilateral neural foraminal narrowing at L4-L5. SL: [id number] 12/04/2017 - - Read by: Jeremi Estrella MD Dictated Date/time: 12/05/17 09:49 Electronically Signed by: Jeremi Estrella MD 12/05/17 09:53 FINAL REPORT [facility] Spine cervical wo contrast MRI Spine cervical wo contrast MRI Study: Spine cervical wo contrast MRI Clinical Indication: G25.3 Myoclonus - . Comparison: Plain films of the cervical spine from 04/23/2016 TECHNIQUE: Multiplanar, multisequence magnetic resonance imaging of the cervical spine was performed without the administration of intravenous gadolinium contrast. FINDINGS: There is normal alignment of the cervical spine. No focal marrow signal abnormality is present. The prevertebral soft tissues, atlanto-dental interspace, and craniocervical junction are within normal limits. The visualized brainstem region is unremarkable. The cervical spinal cord is normal in size and signal. Stable postoperative changes of multilevel ACDF of C3-C5 are seen with associated ferromagnetic susceptibility artifact. Disc desiccation at C2-C3 and C5-C6 is seen. DISC SPACES: C2-C3: Negative for significant disc bulge or protrusion. Osseous fusion across the facet joints is seen. There is no spinal canal stenosis or neural foraminal narrowing. C3-C4: Postoperative changes of ACDF are seen. Mild facet arthrosis is seen. There is a central disc osteophyte protrusion producing moderate anterior thecal sac effacement. Mild to moderate spinal canal stenosis is seen with the thecal sac measuring 8.5 mm AP dimension. There is mild left neural foraminal narrowing. C4-C5: Postoperative changes of ACDF are seen. Moderate size circumferential disc osteophyte complex is seen, producing mild anterior thecal sac effacement. Moderate facet arthrosis is seen. There is mild spinal canal stenosis with the thecal sac measuring 9 mm AP dimension. Severe left and mild right neural foraminal narrowing is present. C5-C6: Moderate size circumferential disc osteophyte complex is seen. Moderate- severe facet arthrosis, right greater than left, is noted. There is severe right and mild left neural foraminal narrowing without spinal canal stenosis. C6-C7: Negative for significant disc bulge or protrusion. Mild facet arthrosis is seen. There is mild left neural foraminal narrowing without spinal canal stenosis. C7-T1: Small annular disc bulge is seen. Moderate-severe facet arthrosis is present, left greater than right. There is no spinal canal stenosis. Moderate- severe bilateral neural foraminal narrowing, left greater than right, is seen. IMPRESSION: 1. Stable postoperative changes of multilevel ACDF of C3-C5. 2. Multilevel degenerative changes of the cervical spine with mild to moderate spinal canal stenosis and mild left neural foraminal narrowing at C3-C4. 3. C4-C5 mild spinal canal stenosis with severe left neural foraminal narrowing. 4. C5-C6 severe right and mild left neural foraminal narrowing. 5. C6-C7 mild left neural foraminal narrowing. 6. C7-T1 moderate-severe bilateral neural foraminal narrowing, left greater than right. SL: [id number] 12/04/2017 - - Read by: Jeremi Estrella MD Dictated Date/time: 12/05/17 10:02 Electronically Signed by: Jeremi Estrella MD 12/05/17 10:07 FINAL REPORT [facility] Sacroiliac joints series DX Sacroiliac joints series DX EXAMINATION: Sacroiliac joint series HISTORY: M54.5 Low back pain; M25.551 Pain in right hip; sacroiliac joint ankylosis FINDINGS: Three views of the bilateral sacroiliac joints are performed without comparison. There is ankylosis of the bilateral sacroiliac joints. Degenerative changes of the lower lumbar spine are partially visualized. There is minimal bilateral hip osteoarthritis. There is no acute fracture. IMPRESSION: 1. Ankylosis of the bilateral sacroiliac joints. 2. Degenerative changes of the lower lumbar spine partially visualized. 04/23/2017 - - Read by: Sheldon Gueavra MD Dictated Date/time: 04/23/17 15:08 Electronically Signed by: Sheldon Guevara MD 04/23/17 15:09 FINAL REPORT [facility] Hip bilat w pelvis and both lat hips DX Hip bilat w pelvis and both lat hips DX EXAMINATION: Bilateral hips with pelvis and both lateral hips. HISTORY: M54.5 Low back pain; M25.551 Pain in right hip; bilateral hip pain; bilateral hip arthritis FINDINGS: AP view of the pelvis and frogleg lateral views of each hip are performed without comparison. There are no fractures or dislocations. The femoral heads are well-seated within the acetabula. There is minimal bilateral hip arthritis with minimal asymmetric joint space narrowing. The sacral ala appear intact. There are degenerative changes of the lower lumbar spine partially visualized. A stimulator pack projects over the right iliac bone. IMPRESSION: 1. Minimal bilateral hip arthritis with minimal asymmetric joint space narrowing. 2. Degenerative changes the lower lumbar spine partially visualized. 04/23/2017 - - Read by: Sheldon Guevara MD Dictated Date/time: 04/23/17 15:05 Electronically Signed by: Sheldon Guevara MD 04/23/17 15:08 FINAL REPORT [facility] CHEM PANEL eGFR 55 mL/min/1.73m2 06/24/2016 Result Comment: The eGFR is calculated using the [...] from the National Kidney Disease Education Program (NKDEP) which additionally recommends that when the eGFR is used in patients with extremes of body mass index for purposes of drug dosing, the eGFR should be multiplied by the estimated BMI. [facility] CHEM PANEL POC Creatinine 1.3 mg/dL 0.5 - 1.4 06/24/2016 [facility] Spine Thoracic w/wo contrast MRI Spine Thoracic w/wo contrast MRI EXAM: Spine Thoracic w/wo contrast MRI INDICATION: THORACIC MYELOPAHTY, LUMBAR MYELOPATHY AND CHRONIC BACK PAIN COMPARISON: MRI of the thoracic spine from 04/10/2016 TECHNIQUE: Multiplanar, multisequence magnetic resonance imaging of the thoracic spine was performed before and after the administration of intravenous gadolinium contrast. FINDINGS: Again noted are mild chronic anterior wedging deformities in the mid to lower thoracic spine with superimposed kyphosis and Schmorl's nodes. The discs are diffusely desiccated throughout the thoracic spine. No significant disc bulges or protrusions throughout the thoracic spine are seen. Again noted is multilevel epidural lipomatosis throughout the mid to lower thoracic spine, most notable at the levels of T5-T9, resulting in severe thecal sac effacement with flattening of the thoracic spinal cord at these levels. The thoracic spinal cord shows no edema. There is an enhancing 6 x 6 x 11 mm enhancing intradural/extramedullary lesion along the right anterior thoracic spinal cord at the level of T11. This is stable since prior exam. No epidural fluid collections are noted. Paravertebral soft tissues are unremarkable. IMPRESSION: 1. Stable appearance of multilevel epidural lipomatosis of the mid to lower thoracic spine with associated severe thecal sac effacement and flattening of the thoracic spinal cord from T5 through T9. No thoracic spinal cord edema is seen. 2. Stable enhancing 6 x 6 x 11 mm intradural/extramedullary lesion along the right anterior thoracic spinal cord at the level of T11. This may represent a meningioma, nerve sheath tumor, or epidermoid cyst. SL: [id number] 06/24/2016 - - Read by: Jeremi Estrella MD Dictated Date/time: 06/24/16 11:42 Electronically Signed by: Jeremi Estrella MD 06/24/16 13:46 FINAL REPORT [facility] Spine lumbar w/wo contrast MRI Spine lumbar w/wo contrast MRI Patient Name: STEVE BENEDICT : 1945; Age: 70 years y/o Male MR: [id number] Study: Spine lumbar w/wo contrast MRI 06/24/2016 9:25 AM CDT Ordering Physician: Fadi Daniel MD Clinical Indication: THORACIC MYELOPAHTY, LUMBAR MYELOPATHY AND CHRONIC BACK PAIN; Comparison: None TECHNIQUE: Multiplanar T1, T2, STIR weighted noncontrast MRI of the lumbar spine is performed on the 1.5 Amina magnet. Post-contrast sequences were also obtained. Contrast: 10 cc of IV gadolinium was administered. FINDINGS: ALIGNMENT AND GENERAL ASSESSMENT: There is normal alignment of the lumbar spine. The bone marrow is normal for the patient's age. L4 vertebral body hemangioma is seen. There is no fracture. The anterior and posterior paraspinal soft tissues are normal. The conus medullaris ends at the L1 level. Bilateral renal simple cysts are noted. There is no abnormal contrast enhancement in the region of the conus medullaris or epidural space. For the sake of nomenclature, five lumbar vertebrae are assumed. Atrophy with mild enhancement of the right paraspinous musculature in the lower lumbar spine is seen, compatible with acute on chronic denervation. The discs are desiccated throughout the lumbar spine and mild disc height loss at L4-L5 and L5-S1 is seen with superimposed Modic type II degenerative endplate changes. DISC SPACES: T12-L1: Negative for significant disc bulge or protrusion. There is no central or foraminal stenosis. The facet joints are unremarkable. L1-L2: Negative for significant disc bulge or protrusion. Mild facet arthrosis is seen. There is no spinal canal stenosis or neural foraminal narrowing. L2-L3: Negative for significant disc bulge or protrusion. Mild facet arthrosis and ligamentum flavum hypertrophy is seen. There is no central or foraminal stenosis. L3-L4: Negative for significant disc bulge or protrusion. Mild facet arthrosis and ligamentum flavum hypertrophy is seen. There is no central or foraminal stenosis. L4-L5: Small annular disc bulge is seen. Moderate facet arthrosis and ligamentum flavum hypertrophy is noted. There is mild spinal canal stenosis with mild right neural foraminal narrowing. L5-S1: Small annular disc bulge is seen. Moderate-severe facet arthrosis is noted. There is no spinal canal stenosis or neural foraminal narrowing. IMPRESSION: 1. Multilevel degenerative changes of the lumbar spine with mild spinal canal stenosis and mild right neural foraminal narrowing at L4-L5. 2. Atrophy with mild enhancement of the right paraspinous muscular structure in the lower lumbar spine, compatible with acute on chronic denervation. SL: [id number] 06/24/2016 - - Read by: Jeremi Estrella MD Dictated Date/time: 06/24/16 11:35 Electronically Signed by: Jeremi Estrella MD 06/24/16 11:40 FINAL REPORT [facility] Spine lumbar wo contrast CT Spine lumbar wo contrast CT CT THORACIC AND LUMBAR SPINE WITHOUT CONTRAST INDICATION: Chronic thoracic and lumbar spine pain COMPARISON: MRI thoracic spine 04/10/2016, MRI lumbar spine 03/28/2016 DISCUSSION: THORACIC SPINE: Alignment: There is exaggerated thoracic kyphotic curvature. Vertebral body alignment is otherwise within normal limits. Vertebral bodies: No compression or displaced fractures are identified. Paraspinal soft tissues: Emphysematous changes of the lungs are noted. There are multiple left renal cysts. Disc spaces, spinal canal and foramina: There is moderate to advanced thoracic spondylosis, grossly unchanged in comparison to the previous MRI of the thoracic spine. LUMBAR SPINE: Alignment: There is lumbar dextroscoliosis. Vertebral body alignment is otherwise within normal limits. Vertebral bodies: Degenerative endplate changes are noted at multiple levels. There are no compression or displaced fractures. Paraspinal soft tissues: Left renal cysts are noted. The soft tissues are otherwise grossly unremarkable. Disc spaces, spinal canal and foramina: The disc spaces are maintained. There is no significant interval change in spondylosis, described in the recent comparison MRI of the lumbar spine. IMPRESSION: 1. No significant interval change in thoracolumbar spondylosis, described in the recent MR studies. 2. No acute abnormalities are visualized. SL:06/19/2016 - - Read by: Timo Torres MD Dictated Date/time: 06/19/16 17:19 Electronically Signed by: Timo Torres MD 06/19/16 17:38 FINAL REPORT [facility] Spine thoracic wo contrast CT Spine thoracic wo contrast CT CT THORACIC AND LUMBAR SPINE WITHOUT CONTRAST INDICATION: Chronic thoracic and lumbar spine pain COMPARISON: MRI thoracic spine 04/10/2016, MRI lumbar spine 03/28/2016 DISCUSSION: THORACIC SPINE: Alignment: There is exaggerated thoracic kyphotic curvature. Vertebral body alignment is otherwise within normal limits. Vertebral bodies: No compression or displaced fractures are identified. Paraspinal soft tissues: Emphysematous changes of the lungs are noted. There are multiple left renal cysts. Disc spaces, spinal canal and foramina: There is moderate to advanced thoracic spondylosis, grossly unchanged in comparison to the previous MRI of the thoracic spine. LUMBAR SPINE: Alignment: There is lumbar dextroscoliosis. Vertebral body alignment is otherwise within normal limits. Vertebral bodies: Degenerative endplate changes are noted at multiple levels. There are no compression or displaced fractures. Paraspinal soft tissues: Left renal cysts are noted. The soft tissues are otherwise grossly unremarkable. Disc spaces, spinal canal and foramina: The disc spaces are maintained. There is no significant interval change in spondylosis, described in the recent comparison MRI of the lumbar spine. IMPRESSION: 1. No significant interval change in thoracolumbar spondylosis, described in the recent MR studies. 2. No acute abnormalities are visualized. SL:06/19/2016 - - Read by: Timo Torres MD Dictated Date/time: 06/19/16 17:19 Electronically Signed by: Timo Torres MD 06/19/16 17:38 FINAL REPORT [facility] cervical 2 or 3 view DX Spine cervical 2 or 3 view DX EXAM: XR CERVICAL SPINE 4 VIEWS DATE: 04/23/2016 10:14 AM CDT INDICATION: M54.2 Cervicalgia COMPARISON: C-spine x-ray dated 09/11/2006 TECHNIQUE: AP, open-mouth odontoid, swimmer's view and lateral radiographs of the cervical spine show from the skull base through C5. FINDINGS: There has been revision of the ACDF with new anterior plate and screws over C3-C5 with intervertebral bone grafts without bridging bone formation. There is no evidence of hardware complication or failure. Vertebral body heights, disk heights and alignment are overall preserved. No prevertebral or paraspinous soft tissue abnormality is identified. IMPRESSION: 1. Revision of ACDF with anterior plate and screws of C3-C5. No evidence of hardware complication or failure. 2. No acute fracture or malalignment. 04/23/2016 - - This report was dictated by a Accident Report Clerk/Fellow. I have personally reviewed the images as well as the Resident's interpretation and agree with the findings. Read by: Shane Santos MD Resident: Shane Santos MD Dictated Date/time: 04/23/16 10:48 Electronically Signed by: Joseline Torres MD 04/23/16 17:41 FINAL REPORT [facility] eGFR 55 mL/min/1.73m2 04/10/2016 Result Comment: The eGFR is calculated using the [...] from the National Kidney Disease Education Program (NKDEP) which additionally recommends that when the eGFR is used in patients with extremes of body mass index for purposes of drug dosing, the eGFR should be multiplied by the estimated BMI. [facility] CHEM PANEL POC Creatinine 1.3 mg/dL 0.5 - 1.4 04/10/2016 [facility] Spine Thoracic w/wo contrast MRI Spine Thoracic w/wo contrast MRI MRI THORACIC SPINE WITH AND WITHOUT CONTRAST INDICATION: Myelopathy, mid and lower back pain, right lower extremity weakness COMPARISON: MRI thoracic spine 01/22/2008 DISCUSSION: Alignment: As previously seen, there is exaggerated kyphotic curvature of the thoracic spine. Vertebral body alignment is otherwise within normal limits.. Vertebral bodies: There are chronic anterior wedge compression deformities of the T7 through T10 vertebral bodies, not significantly changed. Note is made of an enhancing T2 hyperintense focus of the T7 vertebral body, stable since 2007, a probable hemangioma. Degenerative endplate changes are noted at multiple levels. The vertebral bodies are otherwise normal in height and signal. Spinal cord: Epidural lipomatosis results in mild flattening of the cord, from around the T5-T6 level through T8-T9. The cord is normal in signal. Paraspinal soft tissues: There is mild left pleural effusion. Multiple bilateral renal cysts are partially seen, larger and more numerous on the left side. Disc spaces, spinal canal and foramina: Epidural lipomatosis results in stenosis of the thecal sac, most severe from T5- T6 through T8-T9, where there is complete subarachnoid effacement and mild flattening of the cord. Since 2007, stenosis of the thecal sac has progressed. Complete subarachnoid effacement and cord flattening were previously not present. The tip of a pain pump lead or catheter is seen in the right ventral spinal canal, at the T10-T11 level. The tip appears to be in the subarachnoid space; however, this is not entirely clear. There there degenerative disc changes and mild facet arthropathy throughout the thoracic spine, without significant spinal canal or foraminal stenosis. Thoracic spondylosis does not contribute to stenosis of the thecal sac. IMPRESSION: 1. Epidural lipomatosis results in severe stenosis of the thecal sac, greatest from T5-T6 through T8-T9. There is complete effacement of the subarachnoid space and mild flattening of the cord. The cord is normal in signal. Epidural lipomatosis and resultant thecal sac stenosis and cord flattening have progressed since 2007. 2. Thoracic spondylosis does not contribute to spinal canal stenosis. The foramina are patent. 3. Stable chronic anterior wedge compression deformities of multiple mid thoracic vertebral bodies, associated with exaggerated thoracic kyphotic curvature. No acute compression fractures are identified. 4. The tip of the pain pump lead or catheter is seen at the T10-T11 level. 5. Mild left pleural effusion and multiple bilateral renal cysts. SL:16 04/10/2016 - - Read by: Timo Torres MD Dictated Date/time: 04/11/16 09:51 Electronically Signed by: Timo Torres MD 04/11/16 10:23 FINAL REPORT [facility] Spine lumbar w/wo contrast MRI Spine lumbar w/wo contrast MRI EXAM: MRI lumbar spine HISTORY: Chronic lower back pain, right lower extremity weakness COMPARISON: None TECHNIQUE: Axial and sagittal T1 and T2-weighted images of the lumbar spine without and with contrast. FINDINGS: Five lumbar type vertebral bodies. Mild dextroscoliosis. Diffuse low marrow signal. Diffuse degenerative disc desiccation. No compression fracture. Conus medullaris is normal in position. Cysts in both kidneys, incompletely imaged. T12-L1: No significant disc bulge, central canal or neuroforaminal stenosis. L1-L2: No significant disc bulge. Moderate facet arthrosis bilaterally mildly compressing the posterior thecal sac. Mild neuroforaminal stenosis bilaterally. L2-L3: No significant disc bulge. Moderate facet arthrosis and mild ligamentum flavum hypertrophy bilaterally with mild mass effect on the posterior thecal sac with mild central canal stenosis. Mild neuroforaminal stenoses bilaterally. L3-L4: No significant disc bulge. Moderate-marked facet arthrosis bilaterally compressing the posterior thecal sac with mild-moderate central canal stenosis. Moderate neuroforaminal stenoses bilaterally. L4-L5: Small disc osteophyte complex, marked facet arthrosis and mild ligamentum flavum hypertrophy bilaterally with moderate central canal stenosis. Moderate right and mild left neuroforaminal stenoses. L5-S1: Small left lateral disc bulge without canal stenosis. Moderate facet arthrosis bilaterally. Posterior osteophytes of L5 abut the right and left L5 foraminal nerve roots. Mild neuroforaminal stenoses bilaterally. IMPRESSION: 1. Small posterior marginal osteophytes at L5 abut the right and left L5 foraminal nerve roots. 2. Posterior element hypertrophy L2-L3, L3-L4 and L4-L5 with mild/moderate canal stenoses. 3. Multilevel neuroforaminal stenoses. 4. Generalized low marrow signal is nonspecific, can be seen with smoking and anemia among other etiologies. SL: [id number] 03/28/2016 - - Read by: Dmitry Mullen MD Dictated Date/time: 03/28/16 08:23 Electronically Signed by: Dmitry Mullen MD 03/28/16 09:30 FINAL REPORT [facility] Vital Signs Vital Sign Value Date Comments Source Encounters Location Location Details Encounter Type Encounter Number Reason For Visit Attending Provider ADM Date DC Date Status Source [facility] Outpatient Imaging [facility] [place] [facility] [id number] Monique Louy 03/06/2016 03/07/2016 [facility] [id number] Christopher Summers 03/28/2016 03/29/2016 [facility] Outpatient Imaging - [place] Out[facility] Services [id number] Angel Martínez 04/02/2016 04/03/2016 [facility] [id number] Elida Valenzuela 04/10/2016 04/11/2016 [facility] Outpatient Imaging - [place] [facility] [id number] Monique Brianna 04/23/2016 04/24/2016 [facility] [place] [facility] [id number] FADI DANIEL 06/06/2016 [facility] Outpatient [id number] Fadi Daniel Jr 06/19/2016 06/20/2016 [facility] Outpatient [id number] Fadi Daniel Jr 06/24/2016 06/25/2016 [facility] Outpatient [id number] FADI DANIEL 07/11/2016 [facility] Outpatient Imaging - [place] Out[facility] Diag Services [id number] Mila Jones 04/23/2017 04/24/2017 [facility] [id number] Oleksandr Whitt 12/05/2017 12/05/2017 [facility] Procedures Procedure Code Date Perfomer Comments Source Catheter replacement [id number] [facility] [place] Fusion<sup>1</sup> [id number] cervical fusion done on 09/11/[address] Nilo Adames [facility] [place] Prostate manipulation [id number] [facility] [place] Stent replacement [id number] [facility] [place] Catheter replacement [id number] [place] Fusion<sup>1</sup> [id number] cervical fusion done on 09/11/[address] Nilo Adames [place] Prostate manipulation [id number] [place] Stent replacement [id number] [facility]
--- OUTSIDE RECORDS SUMMARY | 2018-08-11 11:10 | XMS REPORT | Summary of Care ---
Author Author [facility] Organization [facility] Address Unknown Phone Unavailable Encounter HQ Encntr_alias(LENY) [id number] Date(s): 03/28/16 - 03/28/16 [facility] [address] [place] [address]- Discharge Disposition: Home Attending Physician: Christopher Summers MD Referring Physician: Christopher Summers MD Vital Signs No data available for [...]
--- OUTSIDE RECORDS SUMMARY | 2018-08-11 11:10 | XMS REPORT | Summary of Care ---
Author Author [facility] [place] Organization [facility] [place] Address Unknown Phone Unavailable Encounter HQ Encntr_alisemaj(FIN) [id number] Date(s): 04/02/16 - 04/02/16 [facility] [place] [address] [place] [id number] [phone] Discharge Disposition: Home Attending Physician: Angel Martínez DO Vital Signs No data available for this [...]
--- OUTSIDE RECORDS SUMMARY | 2018-08-11 11:10 | XMS REPORT | Summary of Care ---
Author Author [facility] Organization [facility] Address Unknown Phone Unavailable Encounter HQ Laine_randolph(LENY) [id number] Date(s): 04/10/16 - 04/10/16 [facility] [address] [place] [address]- Discharge Disposition: Home Attending Physician: Elida Valenzuela Referring Physician: Elida Valenzuela Vital Signs No data available for this section Problem List No data available for this section Allergies, Adverse Reactions, Alerts Substance Reaction Severity Status NKDA Active Medications No data available for this section Results CHEM PANEL Most recent to 1 oldest [Reference Range]: eGFR 55 mL/min/1.73m2 1 *NA* (04/10/16 9:02 AM) POC Creatinine 1.3 mg/dL [0.5-1.4 mg/dL] (04/10/16 9:02 AM) 1Result Comment: The eGFR is calculated [...]
--- OUTSIDE RECORDS SUMMARY | 2018-08-11 11:10 | XMS REPORT | Summary of Care ---
Author Author [facility] Organization [facility] Address Unknown Phone Unavailable Encounter HQ Laine_randolph(FIN) [id number] Date(s): 12/04/17 - 12/04/17 [facility] [address] [place] [address]- Encounter Diagnosis Myoclonus (Final) - 12/08/17 Spinal stenosis, lumbar region without neurogenic claudication (Final) - Spinal stenosis, cervical region (Final) - Spinal stenosis, cervicothoracic region (Final) - Discharge Disposition: Home or Self Care Attending Physician: Oleksandr Whitt MD Referring Physician: Oleksandr Whitt MD Vital Signs No data available for [...] Procedures Procedure Date Related Diagnosis Body Site Status Catheter replacement Completed Fusion1 Completed Prostate manipulation Completed Stent replacement Completed 1cervical fusion done on 09/11/[address] Nilo Adames Social History Social History Type Response Smoking Status Never smoker; Ready to change: No; Concerns about tobacco use in household: No; Exposure to Tobacco Smoke None; Cigarette Smoking Last 365 Days No; Reg Smoking Cessation Counseling No entered on: 07/11/16 Assessment and Plan No data available for this section
--- OUTSIDE RECORDS SUMMARY | 2018-08-11 11:10 | XMS REPORT | Summary of Care ---
Author Author [facility] Organization [facility] Address Unknown Phone Unavailable Encounter HQ Laine_randolph(FIN) [id number] Date(s): 06/19/16 - 06/19/16 [facility] [address] [place] [address]- Discharge Disposition: Home or Self Care Attending [...] fusion done on 09/11/[address] Nilo Aadmes Social History Social History Type Response Smoking Status Never smoker; Ready to change: No; Concerns about tobacco use in household: No; Exposure to Tobacco Smoke None; Cigarette Smoking Last 365 Days No; Reg Smoking Cessation Counseling No Assessment and Plan No data available for this section
--- OUTSIDE RECORDS SUMMARY | 2018-08-11 11:10 | XMS REPORT | Summary of Care ---
Author Author [facility] Outpatient Imaging [facility] Outpatient Imaging [facility] Address Unknown Phone Unavailable Encounter HQ Adalintr_randolph(FIN) [id number] Date(s): 03/06/16 - 03/06/16 [facility] Outpatient Imaging [facility] [address] [facility], [address] [place], [place] [address] [place] [address] [phone] Discharge Disposition: Home Attending Physician: Monique Reed [...]
--- OUTSIDE RECORDS SUMMARY | 2018-08-11 11:11 | XMS REPORT ---
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 Allergies, Adverse Reactions, Alerts Allergy Name Allergy Type Status Severity Reaction(s) Onset Date Inactive Date Treating Clinician Comments No Known Allergies DA Active U 2018-04-21 00:00:00 Medications This patient has no known medications. Results Test Description Test Time Test Comments Text Results Atomic Results Result Comments CHEST 2 VIEWS 2018-07-31 16:42:00 [place] [address] Patient Name: STEVE BENEDICT MR #: [id number] : 1945 Age/Sex: 72/M Req #: [id number] Adm Physician: HAILEE HERNANDEZ MD Ordered by: HAILEE HERNANDEZ MD Report #: [id number] Location: [facility] Room/Bed: [place] [address] Procedure: [id number] DX/CHEST 2 VIEWS Exam Date: 07/31/18 Exam Time: 1614 REPORT STATUS: Signed Frontal and lateral views of the chest, 4 total views. HISTORY: Acute CHF COMPARISON: Chest radiograph June 05, 2017 DISCUSSION: Lungs: The lungs are hyperinflated. No evidence of a consolidative pneumonia or pulmonary alveolar edema. Mild left basilar atelectasis versus scarring. Pleura: No pleural effusion or pneumothorax. Heart and mediastinum: The cardiomediastinal silhouette appears unremarkable. Bones: Accentuation of the thoracic kyphosis. DISH (Diffuse idiopathic skeletal hyperostosis). Multiple healed left-sided rib fracture deformities. IMPRESSION: 1. Findings compatible with obstructive lung disease. 2. Minimal interstitial pulmonary edema is possible in the setting of volume overload, but there is no evidence of alveolar pulmonary edema. Signed by: Dr. Yasmine Mcgee D.O., M.M.M. on 07/31/2018 4:48 PM Dictated By: YASMINE MCGEE DO 47 Transcribed By: ERAN on 07/31/181647 COPY TO: HAILEE HERNANDEZ MD RENAL RETROPERITONEAL COMP 2018-07-31 15:30:00 [place] [address] Patient Name: STEVE BENEDICT MR #: [id number] : 1945 Age/Sex: 72/M Req #: [id number] Adm Physician: HAILEE HERNANDEZ MD Ordered by: HAILEE HERNANDEZ MD Report #: [id number] Location: [facility] Room/Bed: [place] [address] Procedure: [id number] US/US RENAL RETROPERITONEAL COMP Exam Date: Exam Time: REPORT STATUS: Signed EXAM: Renal Ultrasound COMPARISON: CT Abdomen/Pelvis 09/22/2012. TECHNIQUE: Transverse and longitudinal images of the kidneys and bladder were obtained. FINDINGS: Right Kidney: Length: Measures 11.2 cm Appearance: Normal echogenicity. Collecting system: No hydronephrosis Stones: None Cyst/Mass: There is an anechoic lesion measuring up to 2.4 cm in the inferior pole of the right kidney. Left Kidney: Length: Measures 12 cm Appearance: Normal echogenicity. Collecting system: No hydronephrosis Stones: None Cyst/Mass: There are 3 anechoic lesions measuring up to 3 cm in the inferior pole of the left kidney, 1.9 cm in the inferior pole of left kidney, and 3 cm in the mid pole of the left kidney. Bladder: Unremarkable in appearance. Bilateral ureteral jets are seen. IMPRESSION: Bilateral simple appearing renal cysts. Otherwise unremarkable renal ultrasound. Signed by: Dr. Jose Manuel Person MD on 07/31/2018 3:34 PM Dictated By: JOSE MANUEL PERSON MD 1534 Transcribed By: ERAN on 07/31/18 1534 COPY TO: HAILEE HERNANDEZ MD CHEST 2 VIEWS [place] [address] Patient Name: STEVE BENEDICT MR #: [id number] : 1945 Age/Sex: 71/M Req #: [id number] Adm Physician: Ordered by: TEOFILO LIPSCOMB Report #: [id number] Location: [facility] Room/Bed: Procedure: [id number] DX/CHEST 2 VIEWS Exam Date: 08/19/17 Exam Time: 0858 REPORT STATUS: Signed PROCEDURE: Frontal and lateral views of the chest. COMPARISON: Portable chest 06/05/2017. INDICATIONS: COPD FINDINGS: Lines/tubes: None. Lungs: No focal consolidation. No parenchymal mass. Bibasilar atelectasis. Pleura: There is no pleural effusion or pneumothorax. Heart and mediastinum: The heart and the mediastinum are normal. Atherosclerotic calcifications. Bones: No acute bony abn ormality. Healing left posterior-lateral rib fractures. Degenerative changes of the thoracic spine. IMPRESSION: No acute radiographic abnormality. Dictated by: Jimy Mccoy M.D. on 08/19/2017 at 10:40 Electronically approved by: Jimy Mccoy M.D. on 08/19/2017 at 10:40 Dictated By: JIMY MCCOY MD 1040 Transcribed By: MIKE on 08/19/17 1040 COPY TO: TEOFILO LIPSCOMB
[2018-08-27] MEDS ORDERED: COSENTYX IM SCH (08:00)
--- NOTE | 2018-09-28 08:06 | Discharge Summary ---
DISCHARGE DIAGNOSES 1. [id number] diastolic heart failure. 2. Chronic kidney disease. 3. Chronic obstructive pulmonary disease. DISCHARGE MEDICATIONS: Please see MAR. DISCHARGE CONDITION: Stable. DISCHARGE INSTRUCTIONS: Follow up in 1 week. HOSPITAL COURSE: Mr. Sharma was admitted with volume overload, atrial fibrillation and acute diastolic heart failure. He underwent diuresis. He had chronic kidney disease for which nephrology was consulted. Dr. Wellignton Ross was consulted for COPD management. Dr. Espinal managed the renal. Discharge creatinine 1.5. Discharge hemoglobin 14.2. INR 2.25. Instructions for followup as listed above. HAILEE HERNANDEZ MD Job#: [id number]
== END 2018-08-05 14:08 | disposition home or self-care (01) | DRG 291 ==
LOC: IMCU 12:12 → MED/SURG2 08-01 14:57 → OBSVTOIN 08-02 07:48
PROVIDERS: ADMIT Internal Medicine Interventional Cardiology; ATTEND Internal Medicine Interventional Cardiology
DX: I13.0 Hypertensive heart and chronic kidney disease with heart failure and stage 1 through stage 4 chronic kidney disease, or unspecified chronic kidney disease (principal); I50.33 Acute on chronic diastolic (congestive) heart failure; N17.9 Acute kidney failure, unspecified; J44.1 Chronic obstructive pulmonary disease with (acute) exacerbation; M62.82 Rhabdomyolysis; G47.36 Sleep related hypoventilation in conditions classified elsewhere; E11.22 Type 2 diabetes mellitus with diabetic chronic kidney disease; I48.91 Unspecified atrial fibrillation; E87.70 Fluid overload, unspecified; E78.5 Hyperlipidemia, unspecified; N40.0 Benign prostatic hyperplasia without lower urinary tract symptoms; I25.10 Atherosclerotic heart disease of native coronary artery without angina pectoris; G47.33 Obstructive sleep apnea (adult) (pediatric); R09.02 Hypoxemia; N18.3 Chronic kidney disease, stage 3 (moderate); N28.1 Cyst of kidney, acquired; E66.9 Obesity, unspecified; Z68.33 Body mass index [BMI] 33.0-33.9, adult; R33.9 Retention of urine, unspecified; N20.0 Calculus of kidney
CPT/HCPCS: 36415; 71046; 76770; 80048; 80053; 81001; 82550; 82553; 82570; 82948; 83735; 83880; 84100; 84133; 84443; 84484; 85025; 85610; 94640; 94660; G0378; J1940; J7030

== ENCOUNTER 2018-09-13 15:21 | Inpatient (IN) | payer BC, MEDICARE ==
[~2018-09-13] VITALS: Ht 154.7 cm; Wt 102.5 kg
[~2018-09-13 15:21] MED LIST changes: +COSENTYX IM; +FEROCON CAPSUL1 EACH PO; +MYRBETRIQ50 MG PO; +PANTOPRAZOLE SO40 MG PO; +RAPATHA IJ; +ROPINIROLE HC0.25 MG PO; +SERTRALINE HCL50 MG PO; +VICTOZA 3-0.6 MG/0.1 IJ
--- OUTSIDE RECORDS SUMMARY | 2018-09-13 15:25 | XMS REPORT | Continuity of Care Document ---
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 11/20/2017 [facility] M54.9 DORSALGIA, UNSPECIFIED G95.9 DISE Active 06/12/2016 [facility] 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, UNSPECIFIE Active 04/04/2016 [facility] DX: M54.4=LUMBAGO WITH SCIATICA, UNSPECI Active 03/26/2016 [facility] R53.1 - WEAKNESS Active 03/18/2016 [facility] [place] Spinal stenosis, lumbar region without neurogenic claudication 03/12/2018 [facility] Spinal stenosis, cervical region 03/12/2018 [facility] Spinal stenosis, cervicothoracic region 03/12/2018 [facility] Afib Resolved Problem 03/12/2018 [facility] [place] Arthritis Resolved Problem 03/12/2018 [facility] [place] COPD Resolved Problem 03/12/2018 [facility] [place] Diabetes Resolved Problem 03/12/2018 [facility] [place] Hypertension Resolved Problem 03/12/2018 [facility] [place] Neuropathy Resolved Problem 03/12/2018 [facility] [place] Obesity Active Problem 03/12/2018 [facility] [place] Seborrheic dermatitis Resolved Problem 03/12/2018 [facility] [place] DORSALGIA, UNSPECIFIED Active [facility] DISEASE OF SPINAL CORD, UNSPECIFIED Active [facility] Medications Medication Details Route Status Patient [...] bilateral neural foraminal narrowing at L4-L5. SL: [id number] 12/04/2017 - - Read by: Jeremi Estrella MD Dictated Date/time: 12/05/17 09:49 Electronically Signed by: Jeremi Estrella MD 12/05/17 09:53 FINAL REPORT [facility] Spine cervical wo contrast MRI Spine [...] foraminal narrowing, left greater than right. SL: [id number] 12/04/2017 - - Read by: Jeremi Estrella MD Dictated Date/time: 12/05/17 10:02 Electronically Signed by: Jeremi Estrella MD 12/05/17 10:07 FINAL REPORT [facility] Sacroiliac joints series DX Sacroiliac joints [...] by: Sheldon Guevara MD Dictated Date/time: 04/23/17 15:08 Electronically Signed [...] should be multiplied by the estimated BMI. [facility] CHEM PANEL POC Creatinine 1.3 mg/dL 0.5 - 1.4 06/24/2016 [facility] Spine Thoracic w/wo contrast MRI Spine [...] nerve sheath tumor, or epidermoid cyst. SL: [id number] 06/24/2016 - - Read by: Jeremi Estrella MD Dictated Date/time: 06/24/16 11:42 Electronically Signed by: Jeremi Estrella MD 06/24/16 13:46 FINAL REPORT [facility] Spine lumbar w/wo contrast MRI Spine lumbar w/wo contrast MRI Patient Name: STEVE BENEDICT : 1945; Age: 70 years y/o Male MR: [id number] Study: Spine lumbar w/wo contrast MRI 06/24/2016 [...] compatible with acute on chronic denervation. SL: [id number] 06/24/2016 - - Read by: Jeremi Estrella [...] Timo Torres MD 06/19/16 17:38 FINAL REPORT [facility] Spine thoracic wo contrast CT Spine [...] Timo Torres MD 06/19/16 17:38 FINAL REPORT [facility] cervical 2 or 3 view DX [...] - This report was dictated by a Ballpoint Pens Assembler/Fellow. I have personally reviewed the images as well as the Resident's interpretation and agree with the findings. Read by: Shane Santos MD Resident: Shane Santos MD Dictated Date/time: 04/23/16 10:48 Electronically Signed by: Joseline Torres MD 04/23/16 17:41 FINAL REPORT [facility] [employer] [facility] eGFR 55 mL/min/1.73m2 04/10/2016 Result Comment: The [...] should be multiplied by the estimated BMI. [facility] CHEM PANEL POC Creatinine 1.3 mg/dL 0.5 - 1.4 04/10/2016 [facility] Spine Thoracic w/wo contrast MRI Spine [...] Timo Torres MD 04/11/16 10:23 FINAL REPORT [facility] Spine lumbar w/wo contrast MRI Spine [...] smoking and anemia among other etiologies. SL: [id number] 03/28/2016 - - Read by: Dmitry Mullen MD Dictated Date/time: 03/28/16 08:23 Electronically Signed by: Dmitry Mullen MD 03/28/16 09:30 FINAL REPORT [facility] Vital Signs Vital Sign Value Date Comments Source Encounters Location Location Details Encounter Type Encounter Number Reason For Visit Attending Provider ADM Date DC Date Status Source [facility] Outpatient Imaging - [place] Outpt Diag Services [id number] Monique Louy 03/06/2016 03/07/2016 [facility] [id number] Christopher Summers 03/28/2016 03/29/2016 [facility] Outpatient Imaging - [place] Out[facility] Diag Services [id number] Angel Martínez 04/02/2016 04/03/2016 [facility] Outpatient [id number] Elida Valenzuela 04/10/2016 04/11/2016 [facility] Outpatient Imaging - [place] Outpt Diag Services [id number] Monique Brianna 04/23/2016 04/24/2016 [facility] [place] [facility] [id number] FADI DANIEL 06/06/2016 [facility] Outpatient [id number] Fadi Daniel Jr 06/19/2016 06/20/2016 [facility] Outpatient [id number] Fadi Daniel Jr 06/24/2016 06/25/2016 [facility] Outpatient [id number] FADI DANIEL 07/11/2016 [facility] Outpatient Imaging - [place] Out[facility] Diag Services [id number] Mila Jones 04/23/2017 04/24/2017 [facility] Outpatient [id number] Oleksandr Whitt 12/05/2017 12/05/2017 [facility] Procedures Procedure Code Date Perfomer Comments Source Catheter replacement [id number] [facility] [place] Fusion<sup>1</sup> [id number] cervical fusion done on 09/11/[address] Nilo Adames [facility] [place] Prostate manipulation [id number] [facility] [place] Stent replacement [id number] [facility] [place] Catheter replacement 245055079 [place] Fusion<sup>1</sup> [id number] cervical fusion done on 09/11/[address] Nilo Adames [place] Prostate manipulation [id number] [place] Stent replacement [id number] [facility]
--- NOTE | 2018-09-13 17:38 | Diagnostic Imaging Report ---
EXAMINATION: CHEST SINGLE (PORTABLE) COMPARISON: Chest x-ray 07/31/2018, chest x-ray 08/19/2017 INDICATION: Hemoptysis, shortness of breath, history of COPD DISCUSSION: Frontal view of the chest obtained at 1723 hours. HEART AND MEDIASTINUM: Stable cardiomegaly LINES: None. LUNGS: Diffuse hyperinflation. Patchy airspace opacities have developed in the base of the left lung. 2 mm calcified granuloma in the right lung base PLEURA: No large effusions. No pneumothorax BONES AND SOFT TISSUES: Healed left posterior rib fractures are stable. There are degenerative changes of the right AC joint. The soft tissues are normal. IMPRESSION: 1. Left basilar airspace opacity may be the result of infiltrate or atelectasis. Recommend correlation with PA and lateral chest x-ray when clinically feasible. 2. Stable cardiomegaly. No vascular congestion. Signed by: Dr. Lalo Kim MD on 09/13/2018 5:35 PM
[2018-09-13 17:51] LABS: BASOPHILS % 0.4 % (0.0-1.0); EOSINOPHILS % 0.2 % (0.0-6.0); HEMATOCRIT 48.7 % (38.2-49.6); HEMOGLOBIN 14.1 g/dL (14.0-18.0); LYMPHOCYTES % 11.6 % (18.0-39.1); MEAN CORPUSCULAR HEMOGLOBIN 23.8 pg (28-32); MEAN CORPUSCULAR VOLUME 82.3 fL (81-99); MONOCYTES # (AUTO) 0.6 (0.2-0.8); MONOCYTES % 7.3 % (4.4-11.3); NEUTROPHILS # (AUTO) 6.8 (2.1-6.9); PLATELET COUNT 237 x10e3/uL (140-360); RED BLOOD COUNT 5.92 x10e6/uL (4.3-5.7); RED CELL DISTRIBUTION WIDTH 17.8 % (11.7-14.4)
[2018-09-13 17:59] LABS: INR 2.33; PROTHROMBIN TIME 27.3 seconds (11.9-14.5)
[2018-09-13 18:00] LABS: PARTIAL THROMBOPLASTIN TIME 43.2 seconds (23.8-35.5)
[2018-09-13 18:03] LABS: LEUKOCYTE ESTERASE ,URINE TRACE (NEGATIVE); NITRITE,URINE POSITIVE (NEGATIVE); PROTEIN,URINE DIPSTICK NEGATIVE (NEGATIVE)
[2018-09-13 18:04] LABS: BILIRUBIN,URINE NEGATIVE (NEGATIVE); KETONES,URINE NEGATIVE (NEGATIVE); URINE UROBILINOGEN 0.2 mg/dL (0.2 - 1)
[2018-09-13 18:06] LABS: ALBUMIN 3.3 g/dL (3.5-5.0); ANION GAP 15.1 mmol/L (8-16); CALCIUM 8.9 mg/dL (8.4-10.2); CREATININE, SERUM 1.49 mg/dL (0.72-1.25); MAGNESIUM 2.2 MG/DL (1.3-2.1); POTASSIUM 4.1 mmol/L (3.5-5.1)
[2018-09-13 18:07] LABS: BACTERIA,URINE MANY /HPF; CLARITY,URINE HAZY (CLEAR); COLOR,URINE YELLOW (YELLOW); EPITHELIAL CELLS,URINE FEW /LPF; RBC,URINE 0-5 /HPF (0-5); WBC,URINE (MAN) 21-50 /HPF (0-5)
[2018-09-13 18:13] LABS: CREATINE KINASE MB 3.2 ng/mL (0-5.0)
[2018-09-13 18:19] LABS: B-TYPE NATRIURETIC PEPTIDE2 265.9 pg/mL (0-100)
[2018-09-13] MEDS: AZITHROMYCIN 500MG/NS 250 ML 250 ML IV SCH (19:00)
[2018-09-13] MEDS: CEFTRIAXONE SOD 1 GM VIAL IV SCH (19:00)
[2018-09-13] MEDS ORDERED: ALBUTEROL0.63 MG/3 INH (19:07)
[2018-09-13] MEDS ORDERED: WARFARIN SODIUM3 MG PO (19:18)
[2018-09-13] MEDS ORDERED: FEROCON CAPSUL1 EACH PO (19:18)
[2018-09-13] MEDS ORDERED: PROAIR HFA INH8.5 GM ×2 (19:18→19:47)
[2018-09-13] MEDS ORDERED: TESTOSTERO200 MG/1 M IM (19:28)
[2018-09-13] MEDS ORDERED: SODIUM CHLORIDE 0.9% 1000ML 1,000 ML IV ONE (19:30)
[2018-09-13] MEDS ORDERED: IPRATROPIUM BROMIDE 0.02% 2.5 ML NEB NEB PRN ×2 (19:30)
[2018-09-13] MEDS ORDERED: ALBUTEROL SULF 0.083% NEB SOLN 3 ML NEB NEB PRN ×2 (19:30)
[2018-09-13] MEDS ORDERED: DEXTROSE 50% SYRINGE 50 ML IV PRN (19:30)
--- NOTE | 2018-09-13 19:37 | Diagnostic Imaging Report ---
EXAM: CHEST 2 VIEWS, PA and lateral INDICATION: Coughing up blood COMPARISON: AP view of the chest September 13, 2018 FINDINGS: LINES/TUBES: None LUNGS: Left lower lobe interstitial and alveolar opacities. PLEURA: No effusions or pneumothorax. HEART AND MEDIASTINUM: Stable cardiomegaly. BONES AND SOFT TISSUES: Diffuse degenerative changes of the thoracic spine. Old left-sided rib fractures. IMPRESSION: Left lower lobe opacity. The differential includes pneumonia or hemorrhage in this patient with reported hemoptysis. Signed by: Dr. Belinda Nguyen M.D. on 09/13/2018 7:34 PM
[2018-09-13] MEDS ORDERED: HYPER-SAL4 M1 (19:47)
[2018-09-13 20:24] VITALS: BP 130/71
[2018-09-13 20:26] VITALS: BP 130/71
[2018-09-13] MEDS: INSULIN LISPRO 100 UNIT/1 ML 3ML VIAL SQ SCH (21:00)
[2018-09-14 05:59] LABS: BASOPHILS % 0.3 % (0.0-1.0); EOSINOPHILS % 0.3 % (0.0-6.0); HEMATOCRIT 49.9 % (38.2-49.6); HEMOGLOBIN 14.4 g/dL (14.0-18.0); LYMPHOCYTES # (AUTO) 1.2 (1.0-3.2); LYMPHOCYTES % 14.1 % (18.0-39.1); MEAN CORPUSCULAR HEMOGLOBIN 24.1 pg (28-32); MEAN CORPUSCULAR HGB CONC 28.9 g/dL (31-35); MEAN CORPUSCULAR VOLUME 83.4 fL (81-99); MONOCYTES # (AUTO) 0.5 (0.2-0.8); MONOCYTES % 5.6 % (4.4-11.3); NEUTROPHILS # (AUTO) 6.9 (2.1-6.9); NEUTROPHILS % 79.1 % (38.7-80.0); PLATELET COUNT 256 x10e3/uL (140-360); RED BLOOD COUNT 5.98 x10e6/uL (4.3-5.7); RED CELL DISTRIBUTION WIDTH 17.5 % (11.7-14.4)
[2018-09-14 06:29] LABS: CREATINE KINASE MB 2.4 ng/mL (0-5.0)
--- NOTE | 2018-09-14 06:31 | Diagnostic Imaging Report ---
EXAM: CHEST SINGLE (PORTABLE), AP 1 view INDICATION: Pneumonia COMPARISON: AP view of the chest September 13, 2018 FINDINGS: LINES/TUBES: None LUNGS: Persistent left lower lobe airspace opacity PLEURA: No effusions or pneumothorax. HEART AND MEDIASTINUM: Stable appearance BONES AND SOFT TISSUES: No acute findings. IMPRESSION: Stable left lower lobe airspace opacity. Signed by: Dr. Belinda Nguyen M.D. on 09/14/2018 6:28 AM
[2018-09-14 06:43] LABS: ANION GAP 17.3 mmol/L (8-16); CALCIUM 9.4 mg/dL (8.4-10.2); CREATININE, SERUM 1.59 mg/dL (0.72-1.25); POTASSIUM 4.3 mmol/L (3.5-5.1)
[2018-09-14 06:50] LABS: INR 2.06; PROTHROMBIN TIME 24.8 seconds (11.9-14.5)
[2018-09-14] MEDS: CEFTRIAXONE SOD 1 GM VIAL IV SCH ×2 (06:52→17:27)
[2018-09-14] MEDS: INSULIN LISPRO 100 UNIT/1 ML 3ML VIAL SQ SCH ×4 (07:30→20:45)
[2018-09-14 08:27] VITALS: BP 133/88
[2018-09-14] MEDS ORDERED: BENZONATATE 100 MG CAP PO PRN (08:30)
[2018-09-14] MEDS: ALBUTEROL/IPRATROPIUM 3 ML NEB NEB SCH ×5 (08:30→23:12)
[2018-09-14] MEDS ORDERED: WARFARIN SOD 3 MG TAB PO SCH (09:00)
[2018-09-14] MEDS: AZITHROMYCIN 500MG/NS 250 ML 250 ML IV SCH (10:10)
[2018-09-14] MEDS: LIOTHYRONINE SODIUM 5 MCG TAB PO SCH (12:15)
[2018-09-14] MEDS: POTASSIUM CHLORIDE 20 MEQ TAB CR PO SCH ×2 (12:15→20:43)
[2018-09-14] MEDS: ASPIRIN 81 MG CHEW TAB PO SCH (12:15)
[2018-09-14] MEDS: METOPROLOL TARTRATE 25 MG TAB PO SCH ×2 (12:15→20:43)
[2018-09-14] MEDS: GUAIFENESIN 600MG/DEXTROMETHORPHAN 30MG TABSR PO SCH ×3 (12:15→23:15)
[2018-09-14] MEDS: FOLIC ACID 1 MG TAB PO SCH ×2 (12:15→17:26)
[2018-09-14] MEDS: LEVOTHYROXINE SODIUM 50 MCG TAB PO SCH (12:15)
[2018-09-14 12:32] VITALS: BP 131/94
[2018-09-14 14:14] LABS: CREATINE KINASE MB 2.6 ng/mL (0-5.0)
[2018-09-14 16:00] VITALS: BP 152/76
[2018-09-14] MEDS: WARFARIN SOD 3 MG TAB PO SCH (17:26)
[2018-09-14] MEDS: FUROSEMIDE 40 MG TAB PO SCH (17:26)
--- NOTE | 2018-09-14 18:11 | History and Physical ---
PRIMARY CARE PROVIDER: Dr. Christopher Summers. CHIEF COMPLAINT: Cough and hemoptysis. HISTORY OF PRESENT ILLNESS: Mr. Sharma is a 73-year-old gentleman who has had a cough for the last few days producing thick yellow green sputum. Yesterday he was coughing, hacking and coughing very hard and started having a little bit of blood-tinged sputum. Came to the emergency room for evaluation and found to have a left lower lobe pneumonia on his chest x-ray. REVIEW OF SYSTEMS: Patient denies fever, chills or weight loss. He has sinus congestion but denies a sore throat. He denies chest pain or palpitations. He has a history of AFib. He has a hacking cough producing thick scant amount of yellow sputum with some mild dyspnea with exertion. He denies abdominal pain, nausea, vomiting or melena. He denies dysuria or flank pain. He denies rash or pruritus. He denies joint pain or swelling. He has chronic back pain. He denies headache, vertigo or loss of consciousness. He denies depression, agitation, homicidal or suicidal ideation. PAST MEDICAL HISTORY: Significant for longstanding hypertension, type 2 diabetes, chronic kidney disease stage 3, chronic AFib, chronic systolic and diastolic congestive heart failure, coronary artery disease with previous stents, and COPD. He no longer smokes. He also has ankylosing spondylitis. He has a history of a pain pump placement as well as coronary stents. His regular medications include a ProAir inhaler, also albuterol nebulizer treatments, budesonide, Pulmicort nebulizer treatments, baclofen 10 mg 3 times a day, clobetasol propionate cream, as needed, Myrbetriq 50 mg daily, testosterone injections, aspirin 81 mg daily, folic acid 1 mg twice daily, furosemide 80 mg twice daily, eyedrops for glaucoma, levothyroxine 100 mcg daily, liothyronine 5 mcg daily, metoprolol 25 mg twice daily, Protonix 40 mg at bedtime, potassium 20 mEq twice a day, Requip 0.5 mg at bedtime, Zoloft 50 mg at bedtime, Coumadin 3 mg daily, hydromorphone 8 mg as needed. ALLERGIES: HE HAS NO KNOWN DRUG ALLERGIES. FAMILY HISTORY: Remarkable for scattered hypertension, diabetes and heart disease. SOCIAL HISTORY: The patient is . [place] is his primary language. He is a former smoker, quit years ago. He drinks very rarely, does not use illegal drugs, and he is generally independently functioning. PHYSICAL EXAM: PSYCHIATRIC: He is alert and oriented times 3 with normal mood and affect. CONSTITUTIONAL: He has a normal body habitus. Is in no acute distress. He is somewhat overweight, 230 pounds, with a BMI of 43, which makes him morbidly obese. VITAL SIGNS: His blood pressure 131/94. Pulse 89 and regular. Respiratory rate 20. O2 sat 98% on 2 liter nasal cannula. Temperature 97.7. HEENT: His head is atraumatic. His eyes are anicteric with clear conjunctivae. Ears and nares are without erythema or discharge. Oropharynx is clear. NECK: Supple with no mass or thyromegaly. LYMPHATIC SYSTEM: He has no palpable cervical, axillary or inguinal adenopathy. CARDIOVASCULAR: His heart has an irregularly irregular rhythm without murmur. He has no carotid bruit. He has mild lower extremity edema below the knee, gets worse during the course of the day while he is up, does go down some at night when his legs are elevated. He has palpable dorsal pedal pulses. RESPIRATORY: Lungs are clear to auscultation and percussion. Some very mild rhonchi left lower lung, no wheezing, and normal respiratory effort. GASTROINTESTINAL: His abdomen is soft without organomegaly, masses or tenderness. He has normal bowel sounds present. CUTANEOUS: His skin is warm and dry to the touch with no rash or skin breakdown. MUSCULOSKELETAL: His joints are in normal alignment without erythema or swelling. He has decreased range of motion in his back. He has no calf tenderness. NEUROLOGIC: Exam is nonfocal with intact cranial nerves and no motor or sensory deficits. DIAGNOSTIC AND LABORATORY STUDIES: Chest x-ray shows left lower lobe consolidation. His UA shows 20 to 50 white cells and is growing greater than 100,000 gram-negative rods. His EKG shows chronic AFib. CBC shows a white count of 8.68 with 79% neutrophils. Hemoglobin 14.4, hematocrit 49.9, platelet count 256,000. His pro time 24.8 with an INR of 2.06. His chemistries: His troponins are all negative, 0.011, 0.007, 0.009. His BNP 265.9, slightly elevated. His chemistry shows normal electrolytes. CO2 is 34. Creatinine 1.59, BUN 27 for a GFR of 53, which is about his baseline, and a calcium of 9.4. Glucose is 143. Transaminases, bilirubin, alk phos are normal. IMPRESSION AND PLAN: 1. Left lower lobe pneumonia. The patient has been started on IV Zithromax and Rocephin along with Mucinex for expectoration. 1. Chronic obstructive pulmonary disease. The patient is going to be getting routine nebulizer treatments. 2. Chronic systolic and diastolic congestive heart failure. Will continue the patient on Lasix. 3. Chronic atrial fibrillation. Will continue the patient on metoprolol and Coumadin. 4. Hypertension with chronic kidney disease stage 3, coronary artery disease and congestive heart failure. Will continue metoprolol and Lasix. 5. Type 2 diabetes complicated by chronic kidney disease stage 3. Will use a sliding-scale insulin at this time. 6. Urinary tract infection with gram-negative rods. Will be giving IV Rocephin empirically pending sensitivity results. 7. Morbid obesity. The patient is on a diabetic diet and has been counseled on a low glycemic diet. 8. For prophylaxis, the patient is on Protonix for GI prophylaxis and Coumadin for stroke and DVT prophylaxis. Job#: [id number] EV
[2018-09-14] MEDS: PANTOPRAZOLE SOD 40 MG TABEC PO SCH (20:44)
[2018-09-14] MEDS: ROPINIROLE HCL 0.25 MG TAB PO SCH (20:44)
[2018-09-14] MEDS: SERTRALINE HCL 50 MG TAB PO SCH (20:44)
[2018-09-14 21:00] VITALS: BP 146/93
[2018-09-14 21:18] VITALS: BP 146/93
[2018-09-14] MEDS: LATANOPROST(OPTH) 2.5 ML BTL OU SCH (21:43)
[2018-09-15] VITALS (8 sets, daily range): BP systolic 127–158; BP diastolic 67–108
[2018-09-15] MEDS: ALBUTEROL/IPRATROPIUM 3 ML NEB NEB SCH ×6 (03:02→23:00)
[2018-09-15 05:18] LABS: BASOPHILS # (AUTO) 0.1 (0.0-0.1); BASOPHILS % 0.9 % (0.0-1.0); EOSINOPHILS # (AUTO) 0.1 (0.0-0.4); EOSINOPHILS % 1.6 % (0.0-6.0); HEMATOCRIT 49.2 % (38.2-49.6); HEMOGLOBIN 14.1 g/dL (14.0-18.0); LYMPHOCYTES # (AUTO) 1.2 (1.0-3.2); LYMPHOCYTES % 17.9 % (18.0-39.1); MEAN CORPUSCULAR HEMOGLOBIN 23.5 pg (28-32); MEAN CORPUSCULAR HGB CONC 28.7 g/dL (31-35); MONOCYTES # (AUTO) 0.8 (0.2-0.8); MONOCYTES % 11.1 % (4.4-11.3); NEUTROPHILS # (AUTO) 4.7 (2.1-6.9); NEUTROPHILS % 68.1 % (38.7-80.0); PLATELET COUNT 258 x10e3/uL (140-360); RED CELL DISTRIBUTION WIDTH 18.4 % (11.7-14.4)
[2018-09-15 05:43] LABS: ANION GAP 11.5 mmol/L (8-16); CALCIUM 9.4 mg/dL (8.4-10.2); CREATININE, SERUM 1.52 mg/dL (0.72-1.25); POTASSIUM 3.5 mmol/L (3.5-5.1)
[2018-09-15 06:08] LABS: THYROID STIMULATING HORMONE 1.609 uIU/mL (0.350-4.940)
[2018-09-15] MEDS: CEFTRIAXONE SOD 1 GM VIAL IV SCH ×2 (06:31→17:50)
[2018-09-15] MEDS: GUAIFENESIN 600MG/DEXTROMETHORPHAN 30MG TABSR PO SCH ×4 (06:31→23:52)
[2018-09-15] MEDS: FUROSEMIDE 40 MG TAB PO SCH ×2 (06:31→17:50)
[2018-09-15] MEDS: INSULIN LISPRO 100 UNIT/1 ML 3ML VIAL SQ SCH ×4 (07:30→20:37)
[2018-09-15] MEDS: METOPROLOL TARTRATE 25 MG TAB PO SCH ×2 (08:30→20:50)
[2018-09-15] MEDS: POTASSIUM CHLORIDE 20 MEQ TAB CR PO SCH ×2 (08:30→20:49)
[2018-09-15] MEDS: AZITHROMYCIN 500MG/NS 250 ML 250 ML IV SCH (09:00)
[2018-09-15] MEDS: ASPIRIN 81 MG CHEW TAB PO SCH (09:00)
[2018-09-15] MEDS: FOLIC ACID 1 MG TAB PO SCH ×2 (09:00→17:50)
[2018-09-15] MEDS: LEVOTHYROXINE SODIUM 50 MCG TAB PO SCH (09:00)
[2018-09-15] MEDS: LIOTHYRONINE SODIUM 5 MCG TAB PO SCH (09:00)
[2018-09-15 09:14] LABS: LARGE PLATELETS FEW; PLATELET ESTIMATE ADEQUATE
[2018-09-15 09:15] LABS: HYPOCHROMASIA SLIGHT; OVALOCYTES FEW; PLATELET MORPHOLOGY COMMENT NORMAL; RBC MORPHOLOGY COMMENT NORMAL
[2018-09-15] MEDS ORDERED: SODIUM CHLORIDE 0.9% 500ML 500 ML ONE (09:24)
[2018-09-15 16:23] LABS: INR 1.71; PROTHROMBIN TIME 21.4 seconds (11.9-14.5)
[2018-09-15] MEDS: WARFARIN SOD 3 MG TAB PO SCH (17:49)
[2018-09-15] MEDS: LATANOPROST(OPTH) 2.5 ML BTL OU SCH (20:50)
[2018-09-15] MEDS: PANTOPRAZOLE SOD 40 MG TABEC PO SCH (20:50)
[2018-09-15] MEDS: SERTRALINE HCL 50 MG TAB PO SCH (20:50)
[2018-09-15] MEDS: ROPINIROLE HCL 0.25 MG TAB PO SCH (20:50)
[2018-09-16] MEDS: ALBUTEROL/IPRATROPIUM 3 ML NEB NEB SCH ×3 (03:00→10:13)
[2018-09-16 03:15] LABS: BASOPHILS # (AUTO) 0.1 (0.0-0.1); BASOPHILS % 0.9 % (0.0-1.0); EOSINOPHILS # (AUTO) 0.3 (0.0-0.4); EOSINOPHILS % 3.2 % (0.0-6.0); HEMOGLOBIN 14.9 g/dL (14.0-18.0); LYMPHOCYTES # (AUTO) 1.3 (1.0-3.2); MEAN CORPUSCULAR HEMOGLOBIN 23.8 pg (28-32); MEAN CORPUSCULAR HGB CONC 28.7 g/dL (31-35); MEAN CORPUSCULAR VOLUME 82.9 fL (81-99); MONOCYTES # (AUTO) 0.9 (0.2-0.8); MONOCYTES % 12.2 % (4.4-11.3); NEUTROPHILS # (AUTO) 5.1 (2.1-6.9); NEUTROPHILS % 66.2 % (38.7-80.0); PLATELET COUNT 254 x10e3/uL (140-360); RED BLOOD COUNT 6.27 x10e6/uL (4.3-5.7); RED CELL DISTRIBUTION WIDTH 18.5 % (11.7-14.4)
[2018-09-16 03:32] LABS: ANION GAP 10.1 mmol/L (8-16); CALCIUM 9.7 mg/dL (8.4-10.2); CREATININE, SERUM 1.66 mg/dL (0.72-1.25); MAGNESIUM 2.3 MG/DL (1.3-2.1)
[2018-09-16 03:38] LABS: POTASSIUM 5.1 mmol/L (3.5-5.1)
[2018-09-16 06:00] VITALS: BP 135/79
[2018-09-16] MEDS: FUROSEMIDE 40 MG TAB PO SCH (06:30)
[2018-09-16] MEDS: GUAIFENESIN 600MG/DEXTROMETHORPHAN 30MG TABSR PO SCH (06:30)
[2018-09-16] MEDS: CEFTRIAXONE SOD 1 GM VIAL IV SCH (06:30)
[2018-09-16] MEDS: INSULIN LISPRO 100 UNIT/1 ML 3ML VIAL SQ SCH (07:30)
[2018-09-16] MEDS: METOPROLOL TARTRATE 25 MG TAB PO SCH (08:30)
[2018-09-16 08:44] VITALS: BP 131/78
[2018-09-16] MEDS: FOLIC ACID 1 MG TAB PO SCH (09:00)
[2018-09-16] MEDS: LEVOTHYROXINE SODIUM 50 MCG TAB PO SCH (09:00)
[2018-09-16] MEDS: AZITHROMYCIN 500MG/NS 250 ML 250 ML IV SCH (09:00)
[2018-09-16] MEDS: LIOTHYRONINE SODIUM 5 MCG TAB PO SCH (09:00)
[2018-09-16] MEDS: ASPIRIN 81 MG CHEW TAB PO SCH (09:00)
[2018-09-16 09:33] LABS: ANION GAP 12.8 mmol/L (8-16); CALCIUM 9.6 mg/dL (8.4-10.2); CREATININE, SERUM 1.6 mg/dL (0.72-1.25); POTASSIUM 3.8 mmol/L (3.5-5.1)
[2018-09-16 10:00] VITALS: BP 131/78
[2018-09-16] MEDS ORDERED: BACTRIM DS TAB1 EACH PO (10:27)
[2018-09-16] MEDS ORDERED: ZITHROMAX500 MG PO (10:28)
--- NOTE | 2018-09-17 07:52 | Discharge Summary ---
ADMISSION DIAGNOSES 1. Left lower lobe pneumonia. 2. Chronic obstructive pulmonary disease. 3. Chronic systolic and diastolic congestive heart failure. 4. Chronic atrial fibrillation. 5. Hypertension with chronic kidney disease III. 6. Coronary artery disease 7. Congestive heart failure. 8. 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 9. Urinary tract infection with gram-negative rods. 10. Obesity. DISCHARGE DIAGNOSES 1. Left lower lobe pneumonia. 2. Chronic obstructive pulmonary disease. 3. Chronic systolic and diastolic congestive heart failure. 4. Chronic atrial fibrillation. 5. Hypertension with chronic kidney disease III. 6. Coronary artery disease 7. Congestive heart failure. 8. 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 9. Urinary tract infection with gram-negative rods. 10. Obesity. 11. Extended-spectrum beta-lactamase of the urine. 12. Hypermagnesemia. PAST MEDICAL HISTORY: Patient has a history hypertension, type 2 diabetes, CKD III, chronic atrial fibrillation, chronic systolic and diastolic CHF, CAD with previous stents, COPD, ankylosing spondylitis with pain pump placement. HOSPITAL COURSE: A 73-year-old male had a cough for the last few days, producing thick yellow green sputum. Although he was hacking and coughing very hard and started to have blood-tinged sputum. He came to the ER for evaluation and a chest x-ray showed left basilar airspace opacity, may be the result of infiltrate or atelectasis. Stable cardiomegaly. No vascular congestion. Patient was started on Zithromax, Rocephin, and Mucinex as well as nebs and home meds for other chronic issues. Urine culture came back positive for ESBL. Patient was discharged home with Zithromax and Bactrim to cover the pneumonia and ESBL of the urine. Patient is asymptomatic. Blood cultures negative. Vital signs stable. Patient afebrile. He will was discharged home and follow up with primary care in 1 to 2 weeks. Patient understands discharge instructions and agrees to plan. He has oxygen and nebulizers at home. Dictated by: Tamela Young NP Job#: [id number] DARREN
== END 2018-09-16 12:23 | disposition home or self-care (01) | DRG 194 ==
LOC: ER 15:21 → ERHOLD 19:21 → MED/SURG 20:25 → MED/SURG2 09-14 12:32
PROVIDERS: ADMIT Internal Medicine; ATTEND Internal Medicine
DX: J18.9 Pneumonia, unspecified organism (principal); I13.0 Hypertensive heart and chronic kidney disease with heart failure and stage 1 through stage 4 chronic kidney disease, or unspecified chronic kidney disease; N39.0 Urinary tract infection, site not specified; I50.42 Chronic combined systolic (congestive) and diastolic (congestive) heart failure; J44.0 Chronic obstructive pulmonary disease with (acute) lower respiratory infection; J44.1 Chronic obstructive pulmonary disease with (acute) exacerbation; Z68.41 Body mass index [BMI] 40.0-44.9, adult; N18.3 Chronic kidney disease, stage 3 (moderate); E11.22 Type 2 diabetes mellitus with diabetic chronic kidney disease; Z79.4 Long term (current) use of insulin; I48.2 Chronic atrial fibrillation; Z79.01 Long term (current) use of anticoagulants; I25.10 Atherosclerotic heart disease of native coronary artery without angina pectoris; E66.01 Morbid (severe) obesity due to excess calories; B96.89 Other specified bacterial agents as the cause of diseases classified elsewhere; Z16.12 Extended spectrum beta lactamase (ESBL) resistance
CPT/HCPCS: 36415; 71045; 71046; 80048; 80053; 81001; 82550; 82553; 82948; 83605; 83735; 83880; 84443; 84484; 85025; 85610; 85730; 86850; 86900; 87040; 87070; 87086; 87186; 87205; 93005; 93971; 94640; 99284; J0456; J0696; J7040

== ENCOUNTER 2018-11-06 14:03 | Observation (INO) | payer BC, MEDICARE ==
[2018-11-05 12:30] LABS: BASOPHILS # (AUTO) 0.1 (0.0-0.1); BASOPHILS % 0.6 % (0.0-1.0); EOSINOPHILS % 0.1 % (0.0-6.0); HEMATOCRIT 58.3 % (38.2-49.6); HEMOGLOBIN 17.1 g/dL (14.0-18.0); LYMPHOCYTES # (AUTO) 1.9 (1.0-3.2); LYMPHOCYTES % 16.2 % (18.0-39.1); MEAN CORPUSCULAR HEMOGLOBIN 24.9 pg (28-32); MEAN CORPUSCULAR HGB CONC 29.3 g/dL (31-35); MEAN CORPUSCULAR VOLUME 84.9 fL (81-99); MONOCYTES # (AUTO) 1.4 (0.2-0.8); MONOCYTES % 11.5 % (4.4-11.3); NEUTROPHILS # (AUTO) 8.5 (2.1-6.9); NEUTROPHILS % 71.1 % (38.7-80.0); PLATELET COUNT 288 x10e3/uL (140-360); RED BLOOD COUNT 6.87 x10e6/uL (4.3-5.7)
[2018-11-05 12:42] LABS: INR 0.96; PROTHROMBIN TIME 13.7 seconds (11.9-14.5)
[2018-11-05 12:50] LABS: ALBUMIN/GLOBULIN RATIO 1.4 (0.8-2.0); CALCIUM 9.5 mg/dL (8.4-10.2); CREATININE, SERUM 1.8 mg/dL (0.72-1.25)
[~2018-11-06] VITALS: Ht 175.3 cm; Wt 106.6 kg
[~2018-11-06 14:03] MED LIST changes: +ALBUTEROL0.63 MG/3 INH; -ALCLOMETASONE D15 GM SUBD; +ALCLOMETASONE D15 GM TOP; +ALDACTAZIDE 501 EACH PO; +BACTRIM DS TAB1 EACH PO; +DILAUDID PAIN PUMP; +MUCUS RELIEF400 MG PO; +PRAMIPEXOLE D0.25 MG PO; +PROAIR HFA INH8.5 GM; +RAPATHA IM; +TESTOSTERO200 MG/1 M IM; +VITAMIN B12 PO; +WAL-MUCIL0.52 GM PO; +WARFARIN SODIUM3 MG PO; +XARELTO10 MG PO; +ZITHROMAX500 MG PO
--- OUTSIDE RECORDS SUMMARY | 2018-11-06 14:05 | XMS REPORT | Continuity of Care Document ---
Author Author [facility] Interface Address Unknown Phone Unavailable Problems Problem Status Onset Date Classification Date Reported Comments Source Myoclonus 12/09/2017 03/12/2018 [facility] DX: G25.3=MYOCLONUS PAIN PUMP 2 Active 11/20/2017 [facility] M54.9 DORSALGIA, UNSPECIFIED G95.9 DISE Active 06/12/2016 [facility] 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, UNSPECIFIE Active 04/04/2016 [facility] DX: M54.4=LUMBAGO WITH SCIATICA, UNSPECI Active 03/26/2016 [facility] R53.1 - WEAKNESS Active 03/18/2016 [facility] Spinal stenosis, lumbar region without neurogenic claudication 03/12/2018 [facility] Spinal stenosis, cervical region 03/12/2018 [facility] Spinal stenosis, cervicothoracic region 03/12/2018 [facility] Afib Resolved Problem 03/12/2018 [facility] Arthritis Resolved Problem 03/12/2018 [facility] [place] COPD Resolved Problem 03/12/2018 [facility] [place] Diabetes Resolved Problem 03/12/2018 [facility] [place] Hypertension Resolved Problem 03/12/2018 [facility] [place] Neuropathy Resolved Problem 03/12/2018 [facility] [place] Obesity Active Problem 03/12/2018 [facility] [place] Seborrheic dermatitis Resolved Problem 03/12/2018 [facility] [place] DORSALGIA, UNSPECIFIED Active [facility] DISEASE OF SPINAL CORD, UNSPECIFIED Active [facility] Medications Medication Details Route Status Patient [...] bilateral neural foraminal narrowing at L4-L5. SL: [id number] 12/04/2017 - - Read by: Jeremi Estrella MD Dictated Date/time: 12/05/17 09:49 Electronically Signed by: Jeremi Estrella MD 12/05/17 09:53 FINAL REPORT [facility] Spine cervical wo contrast MRI Spine [...] foraminal narrowing, left greater than right. SL: [id number] 12/04/2017 - - Read by: Jeremi Estrella MD Dictated Date/time: 12/05/17 10:02 Electronically Signed by: Jeremi Estrella MD 12/05/17 10:07 FINAL REPORT [facility] Sacroiliac joints series DX Sacroiliac joints [...] should be multiplied by the estimated BMI. [facility] CHEM PANEL POC Creatinine 1.3 mg/dL 0.5 - 1.4 06/24/2016 [facility] Spine Thoracic w/wo contrast MRI Spine [...] nerve sheath tumor, or epidermoid cyst. SL: [id number] 06/24/2016 - - Read by: Jeremi Estrella MD Dictated Date/time: 06/24/16 11:42 Electronically Signed by: Jeremi Estrella MD 06/24/16 13:46 FINAL REPORT [facility] Spine lumbar w/wo contrast MRI Spine lumbar w/wo contrast MRI Patient Name: STEVE BENEDICT : 1945; Age: 70 years y/o Male MR: [id number] Study: Spine lumbar w/wo contrast MRI 06/24/2016 [...] compatible with acute on chronic denervation. SL: [id number] 06/24/2016 - - Read by: Jeremi Estrella [...] Timo Torres MD 06/19/16 17:38 FINAL REPORT [facility] Spine thoracic wo contrast CT Spine [...] Timo Torres MD 06/19/16 17:38 FINAL REPORT [facility] cervical 2 or 3 view DX [...] - This report was dictated by a Utility System Repairer/Fellow. I have personally reviewed the images as well as the Resident's interpretation and agree with the findings. Read by: Shane Santos MD Resident: Shane Santos MD Dictated Date/time: 04/23/16 10:48 Electronically Signed by: Joseline Torres MD 04/23/16 17:41 FINAL REPORT [email or web address] [facility] eGFR 55 mL/min/1.73m2 04/10/2016 Result Comment: The [...] should be multiplied by the estimated BMI. [facility] CHEM PANEL POC Creatinine 1.3 mg/dL 0.5 - 1.4 04/10/2016 [facility] Spine Thoracic w/wo contrast MRI Spine [...] Timo Torres MD 04/11/16 10:23 FINAL REPORT [facility] Spine lumbar w/wo contrast MRI Spine [...] smoking and anemia among other etiologies. SL: [id number] 03/28/2016 - - Read by: Dmitry Mullen MD Dictated Date/time: 03/28/16 08:23 Electronically Signed by: Dmitry Mullen MD 03/28/16 09:30 FINAL REPORT [facility] Vital Signs Vital Sign Value Date Comments Source Encounters Location Location Details Encounter Type Encounter Number Reason For Visit Attending Provider ADM Date DC Date Status Source [facility] [place] [facility] [id number] Monique Louy 03/06/2016 03/07/2016 [facility] Out[facility] [id number] Christopher Summers 03/28/2016 03/29/2016 [facility] [place] [facility] [id number] Angel Martínez 04/02/2016 04/03/2016 [facility] Outpatient [id number] Elida Valenzuela 04/10/2016 04/11/2016 [facility] [place] [facility] [id number] Monique Brianna 04/23/2016 04/24/2016 [facility] [place] [facility] [id number] FADI DANIEL 06/06/2016 [facility] Outpatient [id number] Fadi Daniel Jr 06/19/2016 06/20/2016 [facility] Outpatient [id number] Fadi Daniel Jr 06/24/2016 06/25/2016 [facility] Outpatient [id number] FADI DANIEL 07/11/2016 [facility] - [place] [facility] [id number] Mila Jones 04/23/2017 04/24/2017 [facility] Outpatient [id number] Oleksandr Whitt 12/05/2017 12/05/2017 [facility] Procedures Procedure Code Date Perfomer Comments Source Catheter replacement [id number] [facility] Fusion<sup>1</sup> [id number] cervical fusion done on 09/11/[address] Nilo Adames [facility] Prostate manipulation [id number] [facility] Stent replacement [id number] [facility] Catheter replacement [id number] [facility] Fusion<sup>1</sup> [id number] cervical fusion done on 09/11/[address] Nilo Adames [facility] Prostate manipulation [id number] [facility] Stent replacement [id number] [facility]
[2018-11-06 14:50] VITALS: BP 148/90
[2018-11-06] MEDS ORDERED: ALPRAZOLAM 0.5 MG TAB ONE (14:59)
[2018-11-06] MEDS ORDERED: DIPHENHYDRAMINE HCL 25 MG CAP ONE (14:59)
[2018-11-06] MEDS ORDERED: FENTANYL CITRATE/PF 100MCG/2 ML INJ ONE ×2 (18:52→21:08)
[2018-11-06] MEDS ORDERED: HEPARIN SOD (PORCINE) 1000 UNIT/ML 30ML ONE (18:52)
[2018-11-06] MEDS ORDERED: MIDAZOLAM HCL 2 MG/2 ML VIAL ONE ×2 (18:52→21:13)
[2018-11-06] MEDS ORDERED: HEPARIN SOD/SOD CHLORIDE 2,000 ML ONE (18:53)
[2018-11-06] MEDS ORDERED: SODIUM CHLORIDE 0.9% 1000ML 1,000 ML ONE (18:53)
[2018-11-06] MEDS ORDERED: IOPAMIDOL 370 MG/ML 200 ML INFUS..BTL INJ ONE ×3 (18:53→21:01)
[2018-11-06] MEDS ORDERED: LIDOCAINE HCL 1% LOCAL INJ 20 ML VIAL ONE (18:53)
[2018-11-06] MEDS ORDERED: NITROGLYCERIN/D5W 200 MCG/ML 250 ML ONE (20:14)
[2018-11-06] MEDS ORDERED: TICAGRELOR 90 MG TABLET ONE (20:20)
[2018-11-06] MEDS ORDERED: EPTIFIBATIDE 10 ML ONE (20:21)
[2018-11-06] MEDS ORDERED: ASPIRIN 325 MG TAB ONE (20:21)
[2018-11-06] MEDS ORDERED: LIDOCAINE 1% W/EPINEPHRINE 20 ML VIAL ONE (21:17)
[2018-11-06 21:50] VITALS: BP 120/70
[2018-11-06 22:00] VITALS: BP 120/70
--- NOTE | 2018-11-06 22:00 | NUR ---
received pt from laboratory aide to room 215, pt SOB, O2 applied at 3L, pt uses o2 at home at 3L, AAOx4, skin intact, pressure dressing to right groin CDI, no bleeding or pain to site, surrounding skin normal, pt c/o of chronic pain to lower back, pain meds on board, pt able to ambulate with cane by self with steady gait, pain pump to right lower quadrant of abdomen, IV to left hand changed, new 20G to left forearm patent and intact with NS @75, order to continue home meds, bed locked and in lowest position, call light placed in reach and instructed to call when assistance needed
[2018-11-06] MEDS: SODIUM CHLORIDE 0.9% 1000ML 1,000 ML IV SCH (22:15)
[2018-11-06] MEDS ORDERED: HYDRALAZINE HCL 20 MG/ML VIAL IV PRN (22:15)
[2018-11-06] MEDS ORDERED: MORPHINE SULFATE INJ 4 MG/ML INJ IV PRN (22:15)
[2018-11-06] MEDS: ALBUTEROL SULF 0.083% NEB SOLN 3 ML NEB NEB PRN (22:40)
[2018-11-07] MEDS ORDERED: LORAZEPAM 0.5 MG TAB PO ONE (01:30)
[2018-11-07 02:20] VITALS: BP 119/70
[2018-11-07] MEDS: POTASSIUM CHLORIDE 20 MEQ TAB CR PO SCH ×2 (02:30→14:28)
[2018-11-07] MEDS ORDERED: METOPROLOL TARTRATE 25 MG TAB PO SCH ×2 (02:30→09:00)
[2018-11-07 04:28] LABS: BASOPHILS # (AUTO) 0.1 (0.0-0.1); BASOPHILS % 0.6 % (0.0-1.0); EOSINOPHILS # (AUTO) 0.1 (0.0-0.4); EOSINOPHILS % 0.5 % (0.0-6.0); HEMATOCRIT 53.4 % (38.2-49.6); HEMOGLOBIN 15.7 g/dL (14.0-18.0); LYMPHOCYTES # (AUTO) 1.6 (1.0-3.2); LYMPHOCYTES % 14.7 % (18.0-39.1); MEAN CORPUSCULAR HEMOGLOBIN 24.7 pg (28-32); MEAN CORPUSCULAR HGB CONC 29.4 g/dL (31-35); MONOCYTES # (AUTO) 1.2 (0.2-0.8); MONOCYTES % 11.4 % (4.4-11.3); NEUTROPHILS # (AUTO) 7.7 (2.1-6.9); NEUTROPHILS % 72.4 % (38.7-80.0); PLATELET COUNT 202 x10e3/uL (140-360); RED BLOOD COUNT 6.36 x10e6/uL (4.3-5.7); RED CELL DISTRIBUTION WIDTH 20.8 % (11.7-14.4)
[2018-11-07 04:43] LABS: ANION GAP 13.3 mmol/L (8-16); CALCIUM 9.2 mg/dL (8.4-10.2); CREATININE, SERUM 1.67 mg/dL (0.72-1.25); POTASSIUM 4.3 mmol/L (3.5-5.1)
[2018-11-07 04:55] VITALS: BP 121/77
[2018-11-07] MEDS ORDERED: FUROSEMIDE 40 MG TAB PO SCH (06:00)
[2018-11-07] MEDS: ALBUTEROL SULF 0.083% NEB SOLN 3 ML NEB NEB PRN ×2 (07:45→14:00)
[2018-11-07 07:59] VITALS: BP 139/83
[2018-11-07 08:31] VITALS: BP 138/74
[2018-11-07] MEDS ORDERED: BACLOFEN 10 MG TAB PO SCH (09:00)
[2018-11-07] MEDS ORDERED: IRON-VITAMIN-MINERAL CAPSULE PO SCH (09:00)
[2018-11-07] MEDS ORDERED: ASPIRIN 81 MG CHEW TAB PO SCH (09:00)
[2018-11-07] MEDS ORDERED: FOLIC ACID 1 MG TAB PO SCH ×2 (09:00)
[2018-11-07] MEDS ORDERED: BUDESONIDE 0.5MG/2 ML NEB NEB SCH (09:00)
[2018-11-07] MEDS ORDERED: LIOTHYRONINE SODIUM 5 MCG TAB PO SCH (09:00)
[2018-11-07] MEDS ORDERED: CLOBETASOL PROPIONATE 0.05% CRM 15 GM TUBE TOP SCH (09:00)
[2018-11-07] MEDS ORDERED: LEVOTHYROXINE SODIUM 50 MCG TAB PO SCH (09:00)
[2018-11-07] MEDS: SODIUM CHLORIDE 0.9% 1000ML 1,000 ML IV SCH (11:30)
[2018-11-07 12:33] VITALS: BP 139/83
--- NOTE | 2018-11-07 16:00 | NUR ---
PIV removed with tip intact. pt escorted to front lobby entrance via WC where awaited in private auto. transferred into auto safely. all personal belonging and D/C instructions with patient and at time of d/c.
[2018-11-07] MEDS ORDERED: LATANOPROST(OPTH) 2.5 ML BTL OU SCH (21:00)
[2018-11-07] MEDS ORDERED: PANTOPRAZOLE SOD 40 MG TABEC PO SCH (21:00)
[2018-11-07] MEDS ORDERED: SERTRALINE HCL 50 MG TAB PO SCH (21:00)
[2018-11-07] MEDS ORDERED: PRAMIPEXOLE DIHYDROCHLORIDE 0.25 MG TAB PO SCH (21:00)
[2018-11-07] MEDS ORDERED: ROPINIROLE HCL 0.25 MG TAB PO SCH (21:00)
[2018-11-07] MEDS ORDERED: RIVAROXABAN 10 MG TABLET PO SCH (21:00)
--- NOTE | 2018-11-11 13:54 | Operative Report ---
DATE OF PROCEDURE: November 06, 2018 INDICATIONS: Coronary artery disease and abnormal stress test. PROCEDURES PERFORMED 1. Left heart catheterization. 2. Selective coronary angiography. 3. Percutaneous transluminal coronary angioplasty and drug-eluting stent placement to the left anterior descending and diagonal arteries. 4. Deployment of right groin Perclose closure device. RECOMMENDATIONS: Triple anticoagulant therapy for 3 months and then aspirin and Xarelto for life. Staged intervention on the right coronary artery/right posterior descending artery. Access obtained in the right femoral artery. A 6-[place] sheath was placed. Diagnostic coronary angiogram revealed 50% left main stenosis, 50% proximal left anterior descending artery stenosis, 70% stenosis of the bifurcation of a large diagonal artery at the midleft anterior descending artery, as well as the ostia of the diagonal artery, mid-diagonal 50%, distal LAD 50%. Right coronary artery with proximal 50%. Distal stent had 50% in-stent restenosis. Ostial right posterior descending artery had 80% stenosis. Circumflex had 50% stenosis. A decision was made to intervene on the left anterior descending and diagonal arteries. The patient received heparin, Integrilin, Brilinta, and aspirin for anticoagulation. The left main was cannulated using an XP 3.56-[place] guiding catheter. The wire was advanced into the diagonal artery. A [place] stent was deployed. The wire was then readvanced into the left anterior descending artery, and a single Resolute [place] 2.75 x 22 mm stent was deployed at 14 atmospheres. Post dilatation of both sets was performed in a kissing fashion. Excellent end result, less than 10% residual stenosis. Groin sheath was repaired using Perclose. Patient observed in the hospital and discharged home the next day. Job#: [id number] PEDRO
== END 2018-11-07 15:53 | disposition home or self-care (01) ==
LOC: CATH LAB 14:03 → MED/SURG2 21:48
PROVIDERS: ADMIT Internal Medicine Interventional Cardiology; ATTEND Internal Medicine Interventional Cardiology
DX: I25.10 Atherosclerotic heart disease of native coronary artery without angina pectoris (principal); R94.39 Abnormal result of other cardiovascular function study; I48.91 Unspecified atrial fibrillation; J44.9 Chronic obstructive pulmonary disease, unspecified; E11.22 Type 2 diabetes mellitus with diabetic chronic kidney disease; N18.4 Chronic kidney disease, stage 4 (severe); Z95.5 Presence of coronary angioplasty implant and graft; I13.10 Hypertensive heart and chronic kidney disease without heart failure, with stage 1 through stage 4 chronic kidney disease, or unspecified chronic kidney disease; Z01.812 Encounter for preprocedural laboratory examination
CPT/HCPCS: 36415 ×3; 80048; 80053; 82948 ×2; 85025 ×2; 85610; 92928; 93454; 94640 ×3; C1725; C1769 ×2; C1817; C1887; G0378 ×2; J1327; J1644; J2001; J2250; J2270; J7030 ×2; Q9967

== ENCOUNTER → 2018-12-08 | Day surgery (SDC) | payer BC, MEDICARE ==
[2018-12-07 16:04] LABS: BASOPHILS % 0.2 % (0.0-1.0); HEMATOCRIT 54.4 % (38.2-49.6); HEMOGLOBIN 16.4 g/dL (14.0-18.0); LYMPHOCYTES # (AUTO) 1.1 (1.0-3.2); LYMPHOCYTES % 11.9 % (18.0-39.1); MEAN CORPUSCULAR HEMOGLOBIN 26.2 pg (28-32); MEAN CORPUSCULAR HGB CONC 30.1 g/dL (31-35); MONOCYTES # (AUTO) 0.6 (0.2-0.8); MONOCYTES % 7.2 % (4.4-11.3); NEUTROPHILS # (AUTO) 7.1 (2.1-6.9); NEUTROPHILS % 80.2 % (38.7-80.0); PLATELET COUNT 211 x10e3/uL (140-360); RED BLOOD COUNT 6.25 x10e6/uL (4.3-5.7); RED CELL DISTRIBUTION WIDTH 20.6 % (11.7-14.4)
[2018-12-07 16:23] LABS: INR 1.2; PROTHROMBIN TIME 16.3 seconds (11.9-14.5)
[2018-12-07 16:30] LABS: ALBUMIN 3.7 g/dL (3.5-5.0); ALBUMIN/GLOBULIN RATIO 1.2 (0.8-2.0); CALCIUM 9.5 mg/dL (8.4-10.2); CREATININE, SERUM 1.75 mg/dL (0.72-1.25)
[~2018-12-08] VITALS: Ht 175.3 cm; Wt 108.9 kg
[2018-12-08] VITALS (14 sets, daily range): BP systolic 127–163; BP diastolic 84–99
[~2018-12-08] MED LIST changes: +ALDACTONE50 MG PO; +CLOPIDOGREL75 MG PO; +EPTIFIBATIDE 10 ML ONE; +FENTANYL CITRATE/PF 100MCG/2 ML INJ ONE; +HEPARIN SOD (PORCINE) 1000 UNIT/ML 30ML ONE; +HEPARIN SOD/SOD CHLORIDE 2,000 ML ONE; +IOPAMIDOL 370 MG/ML 200 ML INFUS..BTL INJ ONE; +KETAMINE HCL INJ 50 MG/ML 10 ML VIAL ONE; +LIDOCAINE HCL 2% LOCAL 20 ML VIAL ONE; +LIDOCAINE HCL 2% LOCAL INJ 5 ML SDV VIAL INJ ONE; +MIDAZOLAM HCL 2 MG/2 ML VIAL ONE; +PREDNISONE10 MG PO; +PROPOFOL IV EMULSION 10 MG/ML 20 ML VIAL ONE; +SODIUM CHLORIDE 0.9% 1000ML 1,000 ML ONE
--- OUTSIDE RECORDS SUMMARY | 2018-12-08 11:12 | XMS REPORT | Continuity of Care Document ---
Author Author [facility] Interface Address Unknown Phone Unavailable Problems Problem Status Onset Date Classification Date Reported Comments Source Myoclonus 12/09/2017 03/12/2018 [facility] DX: G25.3=MYOCLONUS PAIN PUMP 2 Active 11/20/2017 [facility] M54.9 DORSALGIA, UNSPECIFIED G95.9 DISE Active 06/12/2016 [facility] 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, UNSPECIFIE Active 04/04/2016 [facility] DX: M54.4=LUMBAGO WITH SCIATICA, UNSPECI Active 03/26/2016 [facility] R53.1 - WEAKNESS Active 03/18/2016 [facility] Spinal stenosis, lumbar region without neurogenic claudication 03/12/2018 [facility] Spinal stenosis, cervical region 03/12/2018 [facility] Spinal stenosis, cervicothoracic region 03/12/2018 [facility] Afib Resolved Problem 03/12/2018 [facility], [facility] Arthritis Resolved Problem 03/12/2018 [facility], [facility] COPD Resolved Problem 03/12/2018 [facility] [place] Diabetes Resolved Problem 03/12/2018 [facility] [place] Hypertension Resolved Problem 03/12/2018 [facility] [place] Neuropathy Resolved Problem 03/12/2018 [facility] Obesity Active Problem 03/12/2018 [facility] Seborrheic dermatitis Resolved Problem 03/12/2018 [facility] [place] DORSALGIA, UNSPECIFIED Active [facility] DISEASE OF SPINAL CORD, UNSPECIFIED Active [facility] Medications Medication Details Route Status Patient [...] bilateral neural foraminal narrowing at L4-L5. SL: [id number] 12/04/2017 - - Read by: Jeremi Estrella MD Dictated Date/time: 12/05/17 09:49 Electronically Signed by: Jeremi Estrella MD 12/05/17 09:53 FINAL REPORT [facility] Spine cervical wo contrast MRI Spine [...] foraminal narrowing, left greater than right. SL: [id number] 12/04/2017 - - Read by: Jeremi Estrella MD Dictated Date/time: 12/05/17 10:02 Electronically Signed by: Jeremi Estrella MD 12/05/17 10:07 FINAL REPORT [facility] Sacroiliac joints series DX Sacroiliac joints [...] should be multiplied by the estimated BMI. [facility] CHEM PANEL POC Creatinine 1.3 mg/dL 0.5 - 1.4 06/24/2016 [facility] Spine Thoracic w/wo contrast MRI Spine [...] nerve sheath tumor, or epidermoid cyst. SL: [id number] 06/24/2016 - - Read by: Jeremi Estrella MD Dictated Date/time: 06/24/16 11:42 Electronically Signed by: Jeremi Estrella MD 06/24/16 13:46 FINAL REPORT [facility] Spine lumbar w/wo contrast MRI Spine lumbar w/wo contrast MRI Patient Name: STEVE BENEDICT : 1945; Age: 70 years y/o Male MR: [id number] Study: Spine lumbar w/wo contrast MRI 06/24/2016 [...] compatible with acute on chronic denervation. SL: [id number] 06/24/2016 - - Read by: Jeremi Estrella MD Dictated Date/time: 06/24/16 11:35 Electronically Signed by: Jeremi Estrella MD 06/24/16 11:40 FINAL REPORT [facility] Spine thoracic wo contrast CT Spine thoracic [...] studies. 2. No acute abnormalities are visualized. SL:16 06/19/2016 - - Read by: Timo Torres MD Dictated Date/time: 06/19/16 17:19 Electronically Signed by: Timo Torres MD 06/19/16 17:38 FINAL REPORT [facility] Spine lumbar wo contrast CT Spine lumbar [...] Timo Torres MD 06/19/16 17:38 FINAL REPORT [facility] cervical 2 or 3 view DX [...] - This report was dictated by a Hydraulic Jack Mechanic/Fellow. I have personally reviewed the images as well as the Resident's interpretation and agree with the findings. Read by: Shane Santos MD Resident: Shane Santos MD Dictated Date/time: 04/23/16 10:48 Electronically Signed by: Joseline Torres MD 04/23/16 17:41 FINAL REPORT [facility] [employer] [facility] eGFR 55 mL/min/1.73m2 04/10/2016 Result Comment: The [...] should be multiplied by the estimated BMI. [facility] CHEM PANEL POC Creatinine 1.3 mg/dL 0.5 - 1.4 04/10/2016 [facility] Spine Thoracic w/wo contrast MRI Spine [...] Timo Torres MD 04/11/16 10:23 FINAL REPORT [facility] Spine lumbar w/wo contrast MRI Spine [...] smoking and anemia among other etiologies. SL: [id number] 03/28/2016 - - Read by: Dmitry Mullen MD Dictated Date/time: 03/28/16 08:23 Electronically Signed by: Dmitry Mullen MD 03/28/16 09:30 FINAL REPORT [facility] Vital Signs Vital Sign Value Date Comments Source Encounters Location Location Details Encounter Type Encounter Number Reason For Visit Attending Provider ADM Date DC Date Status Source [facility] [place] [facility] [id number] Monique Dietrichray 03/06/2016 03/07/2016 [facility] Outpatient [id number] Christopher Summers 03/28/2016 03/29/2016 [facility] [place] [facility] [id number] Angel Martínez 04/02/2016 04/03/2016 [facility] Outpatient [id number] Elida Valenzuela 04/10/2016 04/11/2016 [facility] [place] [facility] [id number] Monique Brianna 04/23/2016 04/24/2016 [facility] Outpatient [id number] FADI DANIEL 06/06/2016 [facility] Outpatient [id number] Fadi Daniel Jr 06/19/2016 06/20/2016 [facility] Outpatient [id number] Fadi Daniel Jr 06/24/2016 06/25/2016 [facility] Outpatient [id number] FADI DANIEL 07/11/2016 [facility] [place] [facility] [id number] Mila Jones 04/23/2017 04/24/2017 [facility] Outpatient [id number] Oleksandr Whitt 12/05/2017 12/05/2017 [facility] Outpatient [id number] CARLA REYNAGA 11/30/2018 [facility] Outpatient [id number] URODYNAMICS 12/16/2018 [facility] Outpatient [id number] CARLA REYNAGA 12/22/2018 [facility] Procedures Procedure Code Date Perfomer Comments Source Catheter replacement [id number] [facility] Fusion<sup>1</sup> [id number] cervical fusion done on 09/11/[address] Nilo Adames [facility] Prostate manipulation [id number] [facility] Stent replacement [id number] [facility] Catheter replacement [id number] [facility] Fusion<sup>1</sup> [id number] cervical fusion done on 09/11/[address] Nilo [facility] Prostate manipulation [id number] JOV[facility] Stent replacement [id number] OJVI Pyle
--- NOTE | 2018-12-08 11:30 | NUR ---
Rec'd to pre-op rm #[id number]. Alert oriented and appropriate, PERRRACHEL, patient SOB, placed on NC 02 @ 3LPM. Pedal pulses PT/DP 2+. Cap fill brisk < 3 sec. Skin warm and dry. IV 22g started to Left forearm, smita. well. Abdomen soft and supple. pt given urinal. Family @ BS. Anesthesia notified of patient's arrival.
--- NOTE | 2018-12-08 15:40 | NUR ---
PT received to PACU 11 for recovery from CCL. CCL staff to recover. Report received from Gina Patel Rn, Cecilio MOJICA, and Tom APONTE. Pt drowsy, easily aroused. Denies SOB/CP, or need. follows commands appropriately. Respirations even, unlabored yet audible wheezing on simple mask 4 L. Pt claiming uses mask at home, and anesthesia stating "the wheeze" is baseline. right groin dressing CDI, pedal pulses +2 DP/PT. Supine with IV 22g left anterior forearm with 0.9%ns @ 125ml gravity. Cecilio MOJICA and Tom at bedside. No further orders. Placed on bedside monitorin- cgf
--- NOTE | 2018-12-08 15:55 | NUR ---
Venous type pressure applied to right groin for questionable area under dressing. No pulsation, no gross bleeding. No pain.
--- NOTE | 2018-12-08 16:05 | NUR ---
Pressure let up, minimal reduction and remains soft. pt with urgency to void, provided urinal, 250 clear yellow urine,.-cgf
--- NOTE | 2018-12-08 16:38 | Operative Report ---
DATE OF PROCEDURE: December 08, 2018 INDICATIONS: Coronary artery disease and abnormal stress test. PROCEDURES PERFORMED 1. Left heart catheterization. 2. Selective coronary angiography. 3. Percutaneous transluminal coronary angioplasty and stent placement to the distal right coronary artery. 4. Deployment of right groin Mynx closure device. COMPLICATIONS: None. RECOMMENDATIONS: Triple anticoagulant therapy for 3 months followed by Xarelto and aspirin life-long. Access obtained in the right femoral artery. Patient was administered monitored anesthesia care. Right coronary artery was cannulated using a JR4 6-Colombian guiding catheter. Patient received heparin and Integrilin for anticoagulation. A short wire was advanced across the distal right coronary artery. In-stent restenosis in the right posterior descending artery. Pre-dilatation with a 2-mm balloon following which a single 2.75 x 21 mm Resolute [place] drug-eluding stent was deployed at 16 atmospheres. Excellent end result. Less than 10% residual stenosis. No complications. The sheath and guidewire were removed. Right groin sheath repaired using Mynx closure device. Patient discharged home same day. Job#: [id number] [place]
--- NOTE | 2018-12-08 16:45 | NUR ---
Spouse brought back to room on request
--- NOTE | 2018-12-08 16:48 | NUR ---
Pt w/ urgency to void, 125ml urine produced yellow clear-cgf
--- NOTE | 2018-12-08 17:40 | NUR ---
Pt w/ urgency to void. Barring down to urinate. observed right groin w/ slight bulge. immediate moderate pressure applied. approximately 15mm in diameter medial from insertion site. Pt denies pain or need, no changes in right leg presentation, pulses intact.
--- NOTE | 2018-12-08 18:00 | NUR ---
hematoma resolved. Continuing to monitor. Pt tolerating PO fluids. [place] [facility] [place]
--- NOTE | 2018-12-08 20:00 | NUR ---
Pt meets DC criteria. Right assessed for s/s of complication and presence of hematoma. Right leg warm, dry, no discolor, and pulses present. IV removed from Left hand. Distal tip appears intact. VS WNL. Pt denies pain, or need at this time. Family at bedside. Review of discharge paperwork and follow up instructions. verbalized understanding. Pt w/ c/o of SOB , normal for pt, and requesting for oxygen transport home. Discussed need and preparations required. Family elected to return home for portable oxygen stating, " We just live a 15 minutes away, ill get his oxygen bag and come back". Pt sitting in chair in tripod position on 4L/nc. Pt reassures that this is normal due to "fusing" of ribs due to diseases process. RN sitting with patient till spouse arrival.-cgf
--- NOTE | 2018-12-08 22:50 | NUR ---
Spouse arrives with portable pump and O2line transferred to system. Pt did not voice or indicate on inquiry if current ADL level was out side of his norm.Review of discharge paperwork again and follow up instructions. Right groin w/o change. verbalized understanding. Pt to wheelchair and transported to front of hospital. Transferred to private vehicle under own strength w/o incident with DC paperwork in hand. - cgf
== END | disposition home or self-care (01) ==
LOC: CATH LAB 11:09
PROVIDERS: ATTEND Internal Medicine Interventional Cardiology
DX: I25.118 Atherosclerotic heart disease of native coronary artery with other forms of angina pectoris (principal); R94.39 Abnormal result of other cardiovascular function study; I48.1 Persistent atrial fibrillation; E11.22 Type 2 diabetes mellitus with diabetic chronic kidney disease; I13.0 Hypertensive heart and chronic kidney disease with heart failure and stage 1 through stage 4 chronic kidney disease, or unspecified chronic kidney disease; N18.9 Chronic kidney disease, unspecified; I50.9 Heart failure, unspecified; J44.9 Chronic obstructive pulmonary disease, unspecified; G89.29 Other chronic pain; E03.9 Hypothyroidism, unspecified; F32.9 Major depressive disorder, single episode, unspecified; F41.8 Other specified anxiety disorders; Z01.812 Encounter for preprocedural laboratory examination; Z99.81 Dependence on supplemental oxygen; Z79.02 Long term (current) use of antithrombotics/antiplatelets; Z79.82 Long term (current) use of aspirin; Z68.35 Body mass index [BMI] 35.0-35.9, adult; Z95.5 Presence of coronary angioplasty implant and graft
CPT/HCPCS: 36415; 80053; 85025; 85610; 92928; 93454; C1725; C1760; C1874; J1327; J1644; J2001 ×2; J2250; J2704; J7030; Q9967

== ENCOUNTER 2018-12-11 02:19 | Inpatient (IN) | payer BC, MEDICARE ==
[2018-12-11] VITALS (9 sets, daily range): BP systolic 120–140; BP diastolic 74–90
[~2018-12-11] VITALS: Ht 175.3 cm; Wt 104.5 kg
[~2018-12-11 02:19] MED LIST changes: -EPTIFIBATIDE 10 ML ONE; -FENTANYL CITRATE/PF 100MCG/2 ML INJ ONE; -HEPARIN SOD (PORCINE) 1000 UNIT/ML 30ML ONE; -HEPARIN SOD/SOD CHLORIDE 2,000 ML ONE; -IOPAMIDOL 370 MG/ML 200 ML INFUS..BTL INJ ONE; -KETAMINE HCL INJ 50 MG/ML 10 ML VIAL ONE; -LIDOCAINE HCL 2% LOCAL 20 ML VIAL ONE; -LIDOCAINE HCL 2% LOCAL INJ 5 ML SDV VIAL INJ ONE; -MIDAZOLAM HCL 2 MG/2 ML VIAL ONE; -PREDNISONE10 MG PO; -PROPOFOL IV EMULSION 10 MG/ML 20 ML VIAL ONE; -SODIUM CHLORIDE 0.9% 1000ML 1,000 ML ONE
[2018-12-11] MEDS ORDERED: FUROSEMIDE INJ 10 MG/ML 2 ML VIAL IV ONE (02:30)
[2018-12-11] MEDS ORDERED: FUROSEMIDE INJ 10 MG/ML 4 ML VIAL ONE (02:38)
--- NOTE | 2018-12-11 02:40 | NUR ---
pt placed on bipap 10/5 40%
[2018-12-11 02:41] LABS: BASOPHILS % 0.3 % (0.0-1.0); EOSINOPHILS % 0.3 % (0.0-6.0); HEMATOCRIT 57.2 % (38.2-49.6); LYMPHOCYTES # (AUTO) 1.1 (1.0-3.2); LYMPHOCYTES % 11.8 % (18.0-39.1); MEAN CORPUSCULAR HEMOGLOBIN 26.2 pg (28-32); MEAN CORPUSCULAR HGB CONC 29.7 g/dL (31-35); MEAN CORPUSCULAR VOLUME 88.3 fL (81-99); MONOCYTES # (AUTO) 0.7 (0.2-0.8); MONOCYTES % 7.3 % (4.4-11.3); NEUTROPHILS # (AUTO) 7.3 (2.1-6.9); NEUTROPHILS % 79.9 % (38.7-80.0); PLATELET COUNT 202 x10e3/uL (140-360); RED BLOOD COUNT 6.48 x10e6/uL (4.3-5.7); RED CELL DISTRIBUTION WIDTH 20.3 % (11.7-14.4)
[2018-12-11 02:50] LABS: INR 1.41; PROTHROMBIN TIME 18.4 seconds (11.9-14.5)
[2018-12-11 02:51] LABS: PARTIAL THROMBOPLASTIN TIME 38.4 seconds (23.8-35.5)
[2018-12-11 03:00] LABS: ALBUMIN 3.9 g/dL (3.5-5.0); ALBUMIN/GLOBULIN RATIO 1.3 (0.8-2.0); ANION GAP 18.2 mmol/L (8-16); CALCIUM 9.3 mg/dL (8.4-10.2); CREATININE, SERUM 1.62 mg/dL (0.72-1.25); POTASSIUM 4.2 mmol/L (3.5-5.1)
--- NOTE | 2018-12-11 03:51 | Diagnostic Imaging Report ---
EXAMINATION: CHEST SINGLE (PORTABLE) INDICATION: SOB COMPARISON: Chest x-ray 09/14/2018 FINDINGS: AP view TUBES and LINES: None. LUNGS: Lungs are well inflated. Near-complete resolution left lower lobe opacity with residual linear opacities. PLEURA: No pleural effusion or pneumothorax. HEART AND MEDIASTINUM: Stable mild cardiomegaly. BONES AND SOFT TISSUES: No acute osseous lesion. Old left-sided rib fractures. Lower cervical fusion hardware. Soft tissues are unremarkable. UPPER ABDOMEN: No free air under the diaphragm. IMPRESSION: Left lower lobe opacities may represent scarring related to the previous pneumonia on 09/14/2018. Developing pneumonia not excluded in the appropriate clinical setting. Signed by: DR. Zacarias Combs MD on 12/11/2018 3:47 AM
--- NOTE | 2018-12-11 04:36 | NUR ---
PT PLACED ON 2L NC SATS REMAIN AT 100%, RESP 16, RESP THERAPIST NOTIFIED, WILL CONTINUE TO MONITOR
[2018-12-11 05:26] LABS: ABG PH 7.37 (7.31-7.41)
[2018-12-11 05:27] LABS: ABG HCO3 34 mmol/L (23-28); ABG PCO2 60 mmHg (41-51); ABG PO2 74 mmHg (80-105)
--- NOTE | 2018-12-11 08:58 | NUR ---
Patient Discharge Status Code Form filed in front of chart
[2018-12-11] MEDS ORDERED: FUROSEMIDE INJ 10 MG/ML 4 ML VIAL IV SCH (09:00)
--- NOTE | 2018-12-11 09:07 | NUR ---
SOCIAL WORK INITIAL ASSESSMENT Optical Engineering Manager to bedside to discuss plan of care with patient/family. CM/SW role and care transitions discussed. Anticipated discharge plan discussed along with duration of care. CM/SW discussed patients right to make decisions in care. CM/SW work hours given. Patient lives: IN HOUSE WITH Admit/Transfer: VIA ED POA/Emergency contact: GERARDO [phone] Current/Previous Home Health: NONE PCP/Follow-up Care: DEISI Current/Previous DME: [facility] [facility] Other Services: NONE Employment Status: RETIRED Areas of Concerns: HAD STENTS PLACED 2 WEEKS AGO WAS HAVING DIFFICULTY AND CAME BACK 2 DAYS AGO AND RETURNED AGAIN TODAY. Referral Needs: NONE Education NeeDS; NONE IMM/LUEVANO given and signed (if applicable): NA Goal for discharge: RETURN HOME CM/SW left business card at the bedside with contact information. Name and number was also written on the patients whiteboard. Patient verbalized understanding of discussion. CM will follow-up with ongoing discharge and transition of care needs.
[2018-12-11 11:12] LABS: CREATINE KINASE MB 2.5 ng/mL (0-5.0)
[2018-12-11] MEDS ORDERED: DEXTROSE 50% SYRINGE 50 ML IV PRN (14:30)
[2018-12-11] MEDS: METOPROLOL TARTRATE 25 MG TAB PO SCH ×2 (15:23→20:40)
[2018-12-11] MEDS: FUROSEMIDE INJ 10 MG/ML 4 ML VIAL IV SCH ×2 (15:23→20:39)
[2018-12-11] MEDS: BACLOFEN 10 MG TAB PO SCH ×2 (15:23→20:39)
[2018-12-11] MEDS: METHYLPREDNISOLONE SOD SUCC 40 MG/ML VIAL 1ML IV SCH (15:23)
[2018-12-11] MEDS: INSULIN REGULAR, HUMAN 100 UNIT/1 ML 3ML VIAL SQ SCH ×2 (15:51→20:40)
[2018-12-11] MEDS: FOLIC ACID 1 MG TAB PO SCH (16:51)
[2018-12-11] MEDS: CARISOPRODOL 350 MG TAB PO SCH ×2 (16:51→20:41)
--- NOTE | 2018-12-11 16:51 | Consultation ---
DATE OF CONSULTATION: December 11, 2018 CARDIOLOGY CONSULTATION REASON FOR CONSULTATION: Ygwef-gh-xczhabh systolic CHF exacerbation. CHIEF COMPLAINT: Shortness of breath. HISTORY OF PRESENT ILLNESS: The patient is a 73-year-old man well known to our service who presents with worsening shortness of breath and lower extremity edema for the past couple of weeks. He says he has been feeling a little bit under the weather with a viral URI. He has been compliant with his home furosemide. Patient is a former smoker. Also has a history of COPD. Denies any chest pain. Patient recently had PCI performed about 2 weeks ago and has not had any postprocedural issues, has been compliant with his dual antiplatelet therapy as well as Xarelto. He has a history of paroxysmal atrial fibrillation for which he is anticoagulated. REVIEW OF SYSTEMS: As above, otherwise negative. PAST MEDICAL HISTORY: 1. Coronary artery disease, status post recent stenting. 2. Atrial fibrillation, on anticoagulation. 3. Chronic diastolic heart failure. 4. Chronic venous insufficiency. 5. Hypertension. 6. Hyperlipidemia. 7. COPD. SOCIAL HISTORY: Patient does not smoke, drink or abuse drugs. FAMILY HISTORY: No family history of early CAD or sudden cardiac . PHYSICAL EXAMINATION: VITALS: Temperature afebrile, pulse 79, respiratory rate 18, blood pressure 139/88, satting 100% on nasal cannula. GENERAL: Elderly white man in no acute distress. CARDIOVASCULAR: Regular rate and rhythm. No murmurs, rubs, or gallops. Palpable carotid pulses, palpable radial pulses, 3+ bilateral lower extremity edema. RESPIRATORY: Mild expiratory wheezing. Otherwise clear to auscultation. ABDOMEN: Obese, soft, nontender. Nondistended. No masses. NEURO AND PSYCH: Alert and oriented to person, place, and time. Normal affect. INPATIENT MEDICATIONS: Reviewed. LABORATORY DATA: Reviewed. IMAGING DATA: Reviewed. TELEMETRY DATA: Reviewed, shows normal sinus rhythm, some rare PVCs. ASSESSMENT: 1. Veuus-rf-fywfcty diastolic heart failure exacerbation. 2. Coronary artery disease, status post recent percutaneous coronary intervention. 3. Paroxysmal atrial fibrillation, on anticoagulation. 4. Hypertension. 5. Chronic obstructive pulmonary disease. PLAN: Continue IV Lasix. Will increase dose to 40 mg q.6 hours. Resume home aspirin, Plavix and Xarelto. Patient has already been ruled out for acute [place]. BNP only slightly elevated at 138. X-ray without significant pulmonary edema. Echocardiogram is pending. COPD treatment per primary team and Pulmonology. Thank you for this consult. Will continue to follow. Job#: [id number] EV
[2018-12-11] MEDS ORDERED: FUROSEMIDE 40 MG TAB PO SCH (18:00)
[2018-12-11] MEDS: BUDESONIDE 0.5MG/2 ML NEB NEB SCH (19:00)
--- NOTE | 2018-12-11 19:00 | NUR ---
received report from day nurse. patient is resting comfortably in bed. bed is in lowest position. will continue to monitor patient.
[2018-12-11] MEDS: ALBUTEROL SULF 0.083% NEB SOLN 3 ML NEB INH SCH (19:03)
[2018-12-11 19:06] LABS: CREATINE KINASE MB 2.4 ng/mL (0-5.0)
[2018-12-11] MEDS: LATANOPROST(OPTH) 2.5 ML BTL OU SCH (20:39)
[2018-12-11] MEDS: POTASSIUM CHLORIDE 20 MEQ TAB CR PO SCH (20:41)
[2018-12-11] MEDS: PANTOPRAZOLE SOD 40 MG TABEC PO SCH (23:49)
[2018-12-11] MEDS: SERTRALINE HCL 50 MG TAB PO SCH (23:49)
[2018-12-11] MEDS: RIVAROXABAN 15 MG TABLET PO SCH (23:49)
[2018-12-11] MEDS: ROPINIROLE HCL 0.25 MG TAB PO SCH (23:49)
[2018-12-11] MEDS: PRAMIPEXOLE DIHYDROCHLORIDE 0.25 MG TAB PO SCH (23:49)
--- NOTE | 2018-12-12 00:05 | NUR ---
patient is complaining of feeling anxious. MD notified. Received new orders. Will continue to monitor patient.
[2018-12-12] MEDS: ALPRAZOLAM 0.5 MG TAB PO PRN (00:37)
[2018-12-12] MEDS: FUROSEMIDE INJ 10 MG/ML 4 ML VIAL IV SCH ×4 (03:56→21:03)
[2018-12-12] MEDS: METHYLPREDNISOLONE SOD SUCC 40 MG/ML VIAL 1ML IV SCH ×2 (03:56→16:00)
[2018-12-12 04:00] VITALS: BP 128/77
[2018-12-12 05:22] LABS: BASOPHILS % 0.1 % (0.0-1.0); HEMOGLOBIN 17.2 g/dL (14.0-18.0); LYMPHOCYTES % 13.3 % (18.0-39.1); MEAN CORPUSCULAR HEMOGLOBIN 26.3 pg (28-32); MEAN CORPUSCULAR HGB CONC 30.2 g/dL (31-35); MEAN CORPUSCULAR VOLUME 87.3 fL (81-99); MONOCYTES # (AUTO) 0.5 (0.2-0.8); MONOCYTES % 6.1 % (4.4-11.3); NEUTROPHILS # (AUTO) 6.2 (2.1-6.9); PLATELET COUNT 193 x10e3/uL (140-360); RED BLOOD COUNT 6.53 x10e6/uL (4.3-5.7); RED CELL DISTRIBUTION WIDTH 20.3 % (11.7-14.4)
[2018-12-12] MEDS: LIOTHYRONINE SODIUM 5 MCG TAB PO SCH (05:36)
[2018-12-12] MEDS: LEVOTHYROXINE SODIUM 100 MCG TAB PO SCH (05:36)
[2018-12-12 05:51] LABS: ANION GAP 16.1 mmol/L (8-16); CALCIUM 9.2 mg/dL (8.4-10.2); CREATININE, SERUM 1.37 mg/dL (0.72-1.25); POTASSIUM 4.1 mmol/L (3.5-5.1)
--- NOTE | 2018-12-12 06:59 | NUR ---
Report given to day nurse. patient is resting comfortably in bed. bed is in lowest position and call cassidy is within reach. will continue to monitor patient.
[2018-12-12] MEDS: BUDESONIDE 0.5MG/2 ML NEB NEB SCH ×2 (07:00→19:00)
[2018-12-12] MEDS: ALBUTEROL SULF 0.083% NEB SOLN 3 ML NEB INH SCH ×2 (07:00→19:00)
[2018-12-12] MEDS: INSULIN REGULAR, HUMAN 100 UNIT/1 ML 3ML VIAL SQ SCH ×4 (07:30→21:00)
[2018-12-12 07:37] VITALS: BP 137/81
[2018-12-12] MEDS ORDERED: LEVOTHYROXINE SODIUM 50 MCG TAB PO SCH (09:00)
[2018-12-12] MEDS: BACLOFEN 10 MG TAB PO SCH ×3 (09:46→21:04)
[2018-12-12] MEDS: ASPIRIN 81 MG CHEW TAB PO SCH (09:46)
[2018-12-12] MEDS: FOLIC ACID 1 MG TAB PO SCH ×2 (09:46→16:22)
[2018-12-12] MEDS: POTASSIUM CHLORIDE 20 MEQ TAB CR PO SCH ×2 (09:46→21:03)
[2018-12-12] MEDS: IRON-VITAMIN-MINERAL CAPSULE PO SCH (09:46)
[2018-12-12] MEDS: CLOBETASOL PROPIONATE 0.05% CRM 15 GM TUBE TOP SCH (09:47)
[2018-12-12] MEDS: METOPROLOL TARTRATE 25 MG TAB PO SCH ×2 (09:47→21:04)
[2018-12-12] MEDS: CLOPIDOGREL BISULFATE 75 MG TAB PO SCH (09:47)
--- NOTE | 2018-12-12 10:57 | NUR ---
Patient alert and responsive, getting nebulizer treatments, on continues nebulizer treatments.
[2018-12-12 11:08] VITALS: BP 137/81
[2018-12-12 11:16] VITALS: BP 128/78
--- NOTE | 2018-12-12 11:53 | Progress Note ---
DATE: CARDIOLOGY PROGRESS NOTE SUBJECTIVE: Patient reports PND and also shortness of breath and worsening edema. Denies any chest pain. OBJECTIVE VITAL SIGNS: Temperature 97.1, pulse 67, respiratory rate 19, blood pressure 137/81, oxygen saturation 93% on 3 liters nasal cannula. GENERAL: Alert and oriented x3, resting comfortably on the side of the bed, does not appear to be in acute distress. NECK: Supple. No JVD noted. LUNGS: Diminished breath sounds throughout with scattered rhonchi and also crackles in left lower lobe. CARDIOVASCULAR: Irregular rate and rhythm. Systolic and diastolic murmur noted. ABDOMEN: Soft, nontender, distended. EXTREMITIES: Lower extremities, 3+ pitting edema, unable to palpate pedal pulses. CARDIOVASCULAR MEDICATIONS 1. Metoprolol 25 mg p.o. q.12 hours. 2. Plavix 75 p.o. daily. 3. Potassium chloride 20 mEq p.o. q.12 hours. 4. Lasix 80 mg IV 4 times a day. 5. Aspirin 81 mg one daily. 6. Xarelto 50 mg p.o. h.s. LABS: WBC 7.69, hemoglobin 17.2, hematocrit 57.0, and platelets 193. Sodium 142, potassium 4.1, BUN 32, creatinine 1.37, glucose 129. ASSESSMENT 1. Jnbob-av-rkcgkmq diastolic heart failure exacerbation. 2. Coronary artery disease, status post recent percutaneous coronary intervention. 3. Persistent atrial fibrillation, continues anticoagulation. 4. Hypertension. 5. Chronic obstructive pulmonary disease. 6. Probable pneumonia. 7. Volume overload and electrolyte derangement. PLAN: Consult nephrology, Dr. Mendez, for volume management. Continue the above-listed cardiac medications. Continue to monitor patient closely. BNP reported to be [address] Rosario managing pulmonary issues. We will continue to monitor this patient very closely. Dictated by: Pinky Golden NP Job#: [id number] ALBA
--- NOTE | 2018-12-12 13:53 | NUR ---
PATIENT BLADDER SCANNED AND AMOUNT SCANNED = 445. REPORTED TO DR. YU AND ORDERS FOR PLACEMENT OF [place] CATH.
[2018-12-12 14:35] LABS: CLARITY,URINE CLEAR (CLEAR); COLOR,URINE YELLOW (YELLOW); LEUKOCYTE ESTERASE ,URINE NEGATIVE (NEGATIVE); NITRITE,URINE NEGATIVE (NEGATIVE); PROTEIN,URINE DIPSTICK TRACE (NEGATIVE)
[2018-12-12 14:36] LABS: BILIRUBIN,URINE NEGATIVE (NEGATIVE); KETONES,URINE NEGATIVE (NEGATIVE); URINE UROBILINOGEN 0.2 mg/dL (0.2 - 1)
[2018-12-12 14:37] LABS: EPITHELIAL CELLS,URINE FEW /LPF; RBC,URINE 0-5 /HPF (0-5); TRANSITIONAL EPI CELLS,URINE FEW; WBC,URINE (MAN) 0-5 /HPF (0-5)
[2018-12-12 15:28] LABS: CREATININE,URINE RANDOM 48.99 mg/dL (63-166); TOTAL PROTEIN, URINE 20.3 mg/dL (1-14)
[2018-12-12 15:31] VITALS: BP 123/69
[2018-12-12 15:35] LABS: PROTEIN/CREATININE RATIO,URINE 0.41
[2018-12-12] MEDS: CARISOPRODOL 350 MG TAB PO SCH (16:22)
--- NOTE | 2018-12-12 16:30 | Consultation ---
DATE OF CONSULTATION: December 12, 2018 RENAL CONSULTATION REASON FOR CONSULTATION: Volume management, shortness of breath. HISTORY OF PRESENT ILLNESS: A 73-year-old male with a history of stage 3 chronic kidney disease and congestive heart failure, diastolic, who presented to [facility] with shortness of breath and lower extremity swelling. 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 He is unhappy with his care and does not want see them during this hospitalization. Patient states he has been having worsening shortness of breath as well as swelling. He was recently given an inhaler by his otologist, which caused him to have decreased urine output which he then stopped and his urine output did improve. He has also had problems with urinary retention in the past, even requiring self-catheterization and is due to see his urologist for bladder studies next week. Patient continues to have shortness of breath and swelling. He denies any chest pain, fevers, or chills. REVIEW OF SYSTEMS: As above. All other systems negative. PAST MEDICAL HISTORY 1. 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 2. Coronary artery disease, status post stenting x4. 3. Atrial fibrillation, on anticoagulation. 4. Congestive heart failure, diastolic. 5. Chronic venous insufficiency. 6. Hypertension. 7. Hyperlipidemia. 8. COPD. 9. Diabetes type 2, complicated by neuropathy. 10. Gout. 11. Glaucoma. 12. History of urinary retention. 13. Ankylosing spondylitis. PAST SURGICAL HISTORY: Cardiac stents. SOCIAL HISTORY: Former smoker. No alcohol. No IV drugs. FAMILY HISTORY: No family history of kidney disease. ALLERGIES: NO KNOWN DRUG ALLERGIES. CURRENT MEDICATIONS: See list, includes Lasix 80 mg IV q.8. PHYSICAL EXAMINATION VITAL SIGNS: Blood pressure 137/81, pulse 67, respiratory rate 19, temperature 97.1. I's and O's 480 in and 300 out. GENERAL: No apparent distress. HEENT: Oropharynx clear. No scleral icterus. NECK: Supple. Elevated jugular venous pressure. No lymphadenopathy. CHEST: Coarse rhonchi anteriorly and posteriorly bilaterally with some rales and increased expiratory phase. CARDIOVASCULAR: Regular rhythm. No murmurs or rubs. ABDOMEN: Soft. Positive bowel sounds. No tenderness. No rebound. EXTREMITIES: 2+ pitting edema. No clubbing. No cyanosis. : No Macedo catheter. Difficult to assess. SKIN: Warm. LABS: White count 7.69, hemoglobin 17.2, hematocrit 57, platelets 193. Sodium 142, potassium 4.1, chloride 95, CO2 of 35, BUN 32, creatinine 1.37. ASSESSMENT AND PLAN 1. Stage 3 chronic kidney disease. Patient appears to be at baseline. We will not do any further workup; however, patient does have urinary retention. We will check bladder scan. We will place a Macedo if needed. 2. History of urinary retention, could be exacerbating his congestive heart failure. We will check bladder scan as above. Place Macedo if needed. 3. Electrolytes, acceptable. 4. Congestive heart failure. Continue with IV Lasix. 5. Hypertension. Blood pressure controlled. 6. Diabetes. Per primary team. Job#: [id number] AMIRA
--- NOTE | 2018-12-12 19:00 | NUR ---
PATIENT HAS REQUESTED THAT VITAL SIGNS BE NOT CHECKED ON HIM AFTER 8PM. PATIENT STATES HE WOULD LIKE TO GET SOME REST.
--- NOTE | 2018-12-12 19:00 | NUR ---
RECEIVED REPORT FROM DAY NURSE. PATIENT IS RESTING COMFORTABLY IN BED. BED IS IN LOWEST POSITION AND CALL MARES IS WITHIN REACH. WILL CONTINUE TO MONITOR PATIENT.
[2018-12-12 20:00] VITALS: BP 133/77
[2018-12-12] MEDS: LATANOPROST(OPTH) 2.5 ML BTL OU SCH (21:03)
[2018-12-12] MEDS: PRAMIPEXOLE DIHYDROCHLORIDE 0.25 MG TAB PO SCH (21:04)
[2018-12-12] MEDS: ROPINIROLE HCL 0.25 MG TAB PO SCH (21:04)
[2018-12-12] MEDS: PANTOPRAZOLE SOD 40 MG TABEC PO SCH (21:04)
[2018-12-12] MEDS: RIVAROXABAN 15 MG TABLET PO SCH (21:04)
[2018-12-12] MEDS: SERTRALINE HCL 50 MG TAB PO SCH (21:05)
[2018-12-13] MEDS: FUROSEMIDE INJ 10 MG/ML 4 ML VIAL IV SCH ×4 (03:44→21:22)
[2018-12-13] MEDS: METHYLPREDNISOLONE SOD SUCC 40 MG/ML VIAL 1ML IV SCH ×2 (03:44→16:00)
[2018-12-13 05:05] LABS: BASOPHILS % 0.1 % (0.0-1.0); HEMATOCRIT 55.2 % (38.2-49.6); HEMOGLOBIN 16.8 g/dL (14.0-18.0); LYMPHOCYTES # (AUTO) 1.1 (1.0-3.2); LYMPHOCYTES % 12.1 % (18.0-39.1); MEAN CORPUSCULAR HGB CONC 30.4 g/dL (31-35); MEAN CORPUSCULAR VOLUME 85.3 fL (81-99); MONOCYTES # (AUTO) 0.4 (0.2-0.8); MONOCYTES % 4.9 % (4.4-11.3); NEUTROPHILS # (AUTO) 7.3 (2.1-6.9); NEUTROPHILS % 82.4 % (38.7-80.0); PLATELET COUNT 198 x10e3/uL (140-360); RED BLOOD COUNT 6.47 x10e6/uL (4.3-5.7); RED CELL DISTRIBUTION WIDTH 19.9 % (11.7-14.4)
[2018-12-13] MEDS: LIOTHYRONINE SODIUM 5 MCG TAB PO SCH (05:17)
[2018-12-13] MEDS: LEVOTHYROXINE SODIUM 100 MCG TAB PO SCH (05:17)
[2018-12-13 05:31] LABS: ALBUMIN 3.5 g/dL (3.5-5.0); ALBUMIN/GLOBULIN RATIO 1.4 (0.8-2.0); ANION GAP 16.8 mmol/L (8-16); CALCIUM 9.2 mg/dL (8.4-10.2); CREATININE, SERUM 1.39 mg/dL (0.72-1.25); POTASSIUM 3.8 mmol/L (3.5-5.1)
[2018-12-13] MEDS: ALBUTEROL SULF 0.083% NEB SOLN 3 ML NEB INH SCH ×2 (07:00→19:35)
[2018-12-13] MEDS: BUDESONIDE 0.5MG/2 ML NEB NEB SCH ×2 (07:00→19:35)
--- NOTE | 2018-12-13 07:00 | NUR ---
REPORT GIVEN TO DAY NURSE. PATIENT IS RESTING COMFORTABLY IN BED. BED IS IN LOWEST POSITION AND CALL MARES IS WITHIN REACH.
[2018-12-13 07:24] VITALS: BP 141/73
[2018-12-13] MEDS: INSULIN REGULAR, HUMAN 100 UNIT/1 ML 3ML VIAL SQ SCH ×4 (07:30→21:23)
[2018-12-13] MEDS: BACLOFEN 10 MG TAB PO SCH ×3 (09:50→21:22)
[2018-12-13] MEDS: FOLIC ACID 1 MG TAB PO SCH ×2 (09:50→17:14)
[2018-12-13] MEDS: IRON-VITAMIN-MINERAL CAPSULE PO SCH (09:50)
[2018-12-13] MEDS: ASPIRIN 81 MG CHEW TAB PO SCH (09:50)
[2018-12-13] MEDS: POTASSIUM CHLORIDE 20 MEQ TAB CR PO SCH ×2 (09:50→21:22)
[2018-12-13] MEDS: CARISOPRODOL 350 MG TAB PO SCH ×2 (09:51→17:14)
[2018-12-13] MEDS: CLOPIDOGREL BISULFATE 75 MG TAB PO SCH (09:51)
[2018-12-13] MEDS: CLOBETASOL PROPIONATE 0.05% CRM 15 GM TUBE TOP SCH (09:52)
[2018-12-13] MEDS: METOPROLOL TARTRATE 25 MG TAB PO SCH ×2 (09:52→21:22)
--- NOTE | 2018-12-13 09:54 | NUR ---
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 Rounds by Nephrology and orders to keep Macedo cath cath place and to not remove, patient already had a urology appointment and will f/u out patient.
--- NOTE | 2018-12-13 09:59 | NUR ---
Patient continues on oxygen, some LS still with scattered wheezing but improving with diuresis, Macedo draining with good urine output- See I/O charting.
[2018-12-13 11:14] VITALS: BP 125/75
[2018-12-13 11:19] VITALS: BP 125/75
--- NOTE | 2018-12-13 11:57 | Progress Note ---
DATE: CARDIOLOGY PROGRESS NOTE SUBJECTIVE: Patient endorses some shortness of breath and fatigue. Denies any chest pain. Also endorses bilateral lower extremity edema; however, that is improving. OBJECTIVE VITAL SIGNS: Temperature 97.9, pulse 72, respiratory rate 16, blood pressure 141/73, oxygen saturation 99% on 6 liters nasal cannula. GENERAL: Alert and oriented x3, resting comfortably in bed, does not appear to be in any acute distress. NECK: Supple. No JVD noted. CARDIOVASCULAR: Irregular rate and rhythm. Systolic and diastolic murmur noted. LUNGS: Diminished breath sounds throughout with some fine crackles in the left lower lobe. ABDOMEN: Distended, soft, nontender. EXTREMITIES: Lower extremities, 2 to 3+ pitting edema. CARDIOVASCULAR MEDICATIONS 1. Metoprolol 25 mg p.o. q.12 hours. 2. Plavix 75 p.o. daily. 3. Potassium chloride 20 mEq p.o. q.12 hours. 4. Furosemide 80 mg IV q.i.d. 5. Aspirin 81 mg p.o. daily. 6. Levothyroxine 100 mcg p.o. daily. 7. Xarelto 15 mg p.o. daily. LABS: WBC 8.82, hemoglobin 16.8, hematocrit 55.2, platelets 198. Sodium 142, potassium 3.8, BUN 31, creatinine 1.39, GFR 50. ASSESSMENT 1. Akrjp-kr-kbqkonw diastolic heart failure exacerbation. 2. Coronary artery disease, status post percutaneous coronary intervention. 3. Persistent atrial fibrillation. 4. Hypertension. 5. Chronic obstructive pulmonary disease. 6. Probable pneumonia. 7. Volume overload and electrolyte derangement. 8. Urinary retention. RECOMMENDATIONS: Continue volume management per nephrology. Continue the above-listed cardiac medication. Transition IV Lasix to p.o. likely tomorrow. Maintain on telemetry. We will continue to monitor this patient very closely. Dictated by: Pinky Golden NP Job#: [id number] STEPHANIEU
[2018-12-13 15:33] VITALS: BP 136/81
--- NOTE | 2018-12-13 16:10 | NUR ---
Report given to receiving nurse on MS 3 at this time and patient transferred to that unit a/ox3, no distress, continues on O2 NC 3 L and aggressive diuresis.
--- NOTE | 2018-12-13 16:30 | NUR ---
The pt was received to room 288 via w/c and placed in bed with oxygen and tele with pulse ox intact. The pt. currently has no complaints or concerns.
--- NOTE | 2018-12-13 19:05 | NUR ---
Patient visited in room during nursing rounds. Patient alert and oriented x3. Patient receiving breathing treatment at this time. After breathing treatment, patient uses face mask especially at night. Pt states he is a mouth breather. [place] in place. Pt requests not to be bothered with vital sign checks at midnight. Call cassidy within reach.
[2018-12-13 20:00] VITALS: BP 133/80
[2018-12-13] MEDS: LATANOPROST(OPTH) 2.5 ML BTL OU SCH (21:00)
[2018-12-13] MEDS: ALPRAZOLAM 0.5 MG TAB PO PRN (21:18)
[2018-12-13] MEDS: PRAMIPEXOLE DIHYDROCHLORIDE 0.25 MG TAB PO SCH (21:22)
[2018-12-13] MEDS: RIVAROXABAN 15 MG TABLET PO SCH (21:22)
[2018-12-13] MEDS: ROPINIROLE HCL 0.25 MG TAB PO SCH (21:22)
[2018-12-13] MEDS: PANTOPRAZOLE SOD 40 MG TABEC PO SCH (21:22)
[2018-12-13] MEDS: SERTRALINE HCL 50 MG TAB PO SCH (21:22)
[2018-12-14] VITALS (7 sets, daily range): BP systolic 128–140; BP diastolic 76–85
[2018-12-14] MEDS: METHYLPREDNISOLONE SOD SUCC 40 MG/ML VIAL 1ML IV SCH ×2 (03:50→15:46)
[2018-12-14] MEDS: FUROSEMIDE INJ 10 MG/ML 4 ML VIAL IV SCH ×4 (03:50→21:23)
[2018-12-14] MEDS: LIOTHYRONINE SODIUM 5 MCG TAB PO SCH (06:10)
[2018-12-14] MEDS: LEVOTHYROXINE SODIUM 100 MCG TAB PO SCH (06:10)
[2018-12-14 06:22] LABS: ANION GAP 15.3 mmol/L (8-16); CALCIUM 9.3 mg/dL (8.4-10.2); CREATININE, SERUM 1.6 mg/dL (0.72-1.25); POTASSIUM 4.3 mmol/L (3.5-5.1)
--- NOTE | 2018-12-14 06:53 | NUR ---
Bedside reporting done. Patient is awake and alertx3, sitting on side of bed without any complaints voiced at this time. Patient was instructed to call for assistance as needed and verbalized understanding. Bed in lowest position, locked and call cassidy within reach.
[2018-12-14] MEDS: INSULIN REGULAR, HUMAN 100 UNIT/1 ML 3ML VIAL SQ SCH ×4 (07:30→21:23)
[2018-12-14] MEDS: BUDESONIDE 0.5MG/2 ML NEB NEB SCH ×2 (07:35→19:00)
[2018-12-14] MEDS: ALBUTEROL SULF 0.083% NEB SOLN 3 ML NEB INH SCH ×2 (07:35→19:00)
[2018-12-14] MEDS: FOLIC ACID 1 MG TAB PO SCH ×2 (08:49→17:00)
[2018-12-14] MEDS: IRON-VITAMIN-MINERAL CAPSULE PO SCH (08:49)
[2018-12-14] MEDS: METOPROLOL TARTRATE 25 MG TAB PO SCH ×2 (08:50→21:23)
[2018-12-14] MEDS: CLOPIDOGREL BISULFATE 75 MG TAB PO SCH (08:50)
[2018-12-14] MEDS: CARISOPRODOL 350 MG TAB PO SCH ×2 (08:50→17:00)
[2018-12-14] MEDS: BACLOFEN 10 MG TAB PO SCH ×3 (08:50→21:22)
[2018-12-14] MEDS: POTASSIUM CHLORIDE 20 MEQ TAB CR PO SCH ×2 (08:50→21:22)
[2018-12-14] MEDS: CLOBETASOL PROPIONATE 0.05% CRM 15 GM TUBE TOP SCH (08:51)
--- NOTE | 2018-12-14 17:27 | Progress Note ---
DATE: December 14, 2018 CARDIOLOGY PROGRESS NOTE SUBJECTIVE: Patient denies chest pain. He reports his shortness of breath is better. OBJECTIVE VITAL SIGNS: Temperature 95.9 degrees, pulse 85, respiratory rate 18, blood pressure 128/76, oxygen saturation 94%. GENERAL: Awake, alert, in no acute distress. LUNGS: Clear to auscultation bilaterally. No wheezes or crackles. CARDIOVASCULAR: Normal rate, regular rhythm. Systolic and diastolic murmurs. ABDOMEN: Soft, nontender. EXTREMITIES: 2+ pitting edema. CARDIAC MEDICATIONS 1. Furosemide 80 mg IV q.6 h. 2. Metoprolol tartrate 25 mg p.o. q.12 h. 3. Plavix 75 mg p.o. daily. 4. Levothyroxine 100 mcg p.o. daily. 5. Liothyronine 5 mcg p.o. daily. 6. Rivaroxaban 15 mg p.o. nightly. 7. Aspirin 81 mg p.o. daily. LABS: Sodium 140, potassium 4.3, chloride 90, CO2 39, BUN 34, creatinine 1.6. TELEMETRY: Normal sinus rhythm. IMPRESSION 1. Kfgiw-sl-bbmwbel diastolic heart failure exacerbation. 2. Coronary artery disease status post percutaneous coronary intervention. 3. Atrial fibrillation. 4. Hypertension. 5. Chronic obstructive pulmonary disease. 6. Urinary retention. RECOMMENDATIONS: Continue current cardiac medications. Patient remains volume-overloaded. Continue diuretics. Watch creatinine closely. We will decrease diuretics to t.i.d. given rise in creatinine and follow closely. Thank you for this consult. We will continue to follow. Job#: [id number] MAYE
--- NOTE | 2018-12-14 19:25 | NUR ---
PT IS SITTING IN THE CHAIR. NO RESPIRATORY DISTRESS NOTED. BED IN THE LOWEST POSITION, LOCKED, AND CALL LIGHT WITHIN REACH. WILL CONTINUE TO MONITOR.
[2018-12-14] MEDS: PRAMIPEXOLE DIHYDROCHLORIDE 0.25 MG TAB PO SCH (21:23)
[2018-12-14] MEDS: RIVAROXABAN 15 MG TABLET PO SCH (21:23)
[2018-12-14] MEDS: ROPINIROLE HCL 0.25 MG TAB PO SCH (21:23)
[2018-12-14] MEDS: SERTRALINE HCL 50 MG TAB PO SCH (21:23)
[2018-12-14] MEDS: PANTOPRAZOLE SOD 40 MG TABEC PO SCH (21:23)
--- NOTE | 2018-12-14 21:24 | NUR ---
PT IS REFUSING NEW IV AND WANTS HIS LASIX PO INSTEAD OF IV. PER PT I AM GOING HOME TOMORROW. WHY SHOULD I GET A NEW IV WHEN I AM GOING HOME TOMORROW. PAGE DR Malachi PULIDO FOR NEW ORDERS. AWAITING CALL BACK. WILL CONTINUE TO MONITOR.
[2018-12-14] MEDS: LATANOPROST(OPTH) 2.5 ML BTL OU SCH (22:11)
[2018-12-15] MEDS: LIOTHYRONINE SODIUM 5 MCG TAB PO SCH (06:10)
[2018-12-15] MEDS: LEVOTHYROXINE SODIUM 100 MCG TAB PO SCH (06:10)
[2018-12-15] MEDS: ALBUTEROL SULF 0.083% NEB SOLN 3 ML NEB INH SCH ×2 (07:00→07:36)
[2018-12-15] MEDS: INSULIN REGULAR, HUMAN 100 UNIT/1 ML 3ML VIAL SQ SCH (07:30)
[2018-12-15 08:22] VITALS: BP 133/95
[2018-12-15] MEDS: IRON-VITAMIN-MINERAL CAPSULE PO SCH (08:22)
[2018-12-15] MEDS: BACLOFEN 10 MG TAB PO SCH (08:22)
[2018-12-15] MEDS: CLOPIDOGREL BISULFATE 75 MG TAB PO SCH (08:22)
[2018-12-15] MEDS: FOLIC ACID 1 MG TAB PO SCH (08:22)
[2018-12-15] MEDS: POTASSIUM CHLORIDE 20 MEQ TAB CR PO SCH (08:22)
[2018-12-15] MEDS: METOPROLOL TARTRATE 25 MG TAB PO SCH (08:22)
[2018-12-15] MEDS: CARISOPRODOL 350 MG TAB PO SCH (08:23)
[2018-12-15] MEDS ORDERED: PREDNISONE 10 MG TAB PO SCH (09:00)
[2018-12-15] MEDS ORDERED: ASPIRIN 81 MG CHEW TAB PO SCH (09:00)
[2018-12-15] MEDS: FUROSEMIDE INJ 10 MG/ML 4 ML VIAL IV SCH (09:00)
--- NOTE | 2018-12-15 09:16 | NUR ---
Patient dont have IV access , he refused and stated ' I don't need IV now, i'm going home today'. Dr Keon Cardenas aware .
[2018-12-15] MEDS: CLOBETASOL PROPIONATE 0.05% CRM 15 GM TUBE TOP SCH (10:48)
[2018-12-15 12:11] VITALS: BP 133/95
[2018-12-15 12:21] VITALS: BP 130/83
[2018-12-15] MEDS ORDERED: PREDNISONE10 MG PO ×2 (12:51→12:52)
[2018-12-15] MEDS ORDERED: PREDNISONE20 MG PO (12:52)
--- NOTE | 2018-12-15 13:05 | NUR ---
patient discharged home, Alert with no distress, Tele box returned, prescription given, patient aware about f/up appointments , transported via wheelchair to [facility].
--- NOTE | 2018-12-15 17:41 | Progress Note ---
DATE: 12/15/2018 Cardiology Progress Note SUBJECTIVE: The patient denies chest pain or shortness of breath, however, he is complaining of wheezing. OBJECTIVE: VITAL SIGNS: Temperature 96.6 degrees, pulse 66, respiratory rate 17, blood pressure 133/95, oxygen saturation 99% on room air. GENERAL: Awake, alert, in no acute distress. LUNGS: Clear to auscultation bilaterally. No wheezes or crackles. CARDIOVASCULAR: Normal rate. Regular rhythm. Systolic and diastolic murmurs. Normal S1 and S2. ABDOMEN: Soft, nontender. EXTREMITIES: 1+ pitting edema. CARDIAC MEDICATIONS: Aspirin 81 mg p.o. daily, metoprolol tartrate 25 mg p.o. q.12 hours, Plavix 75 mg p.o. daily, levothyroxine 100 mcg p.o. daily, liothyronine 5 mcg p.o. daily, rivaroxaban 15 mg p.o. every bedtime, Lasix 80 mg IV t.i.d. LABORATORY DATA: None today. Telemetry, atrial fibrillation. IMPRESSION: 1. Sdzcs-wc-anhduku diastolic heart failure. 2. Coronary artery disease, status post percutaneous coronary intervention. 3. Atrial fibrillation. 4. Hypertension. 5. Chronic obstructive pulmonary disease. 6. Urinary retention. RECOMMENDATIONS: Continue current cardiac medications. The patient is being discharged today. We will have him follow up in the office in 2 weeks to assess volume status. Heart-healthy, low-sodium diet and fluid restriction was discussed with the patient. Thank you for this consult. We will continue to follow. Zenaida Randolph MD ABS/MODL /[id number]
== END 2018-12-15 13:01 | disposition home or self-care (01) | DRG 291 ==
LOC: ER 02:19 → ERHOLD 05:34 → IMCU 06:30 → OBSVTOIN 12-13 12:11 → MED/SURG3 12-13 16:03
DX: I11.0 Hypertensive heart disease with heart failure (principal); J18.9 Pneumonia, unspecified organism; J44.0 Chronic obstructive pulmonary disease with (acute) lower respiratory infection; I48.1 Persistent atrial fibrillation; J44.1 Chronic obstructive pulmonary disease with (acute) exacerbation; I50.33 Acute on chronic diastolic (congestive) heart failure; I25.10 Atherosclerotic heart disease of native coronary artery without angina pectoris; N18.3 Chronic kidney disease, stage 3 (moderate); N40.1 Benign prostatic hyperplasia with lower urinary tract symptoms; R33.8 Other retention of urine; Z95.5 Presence of coronary angioplasty implant and graft; H40.9 Unspecified glaucoma; I87.2 Venous insufficiency (chronic) (peripheral); N14.0 Analgesic nephropathy; I48.91 Unspecified atrial fibrillation; Z79.01 Long term (current) use of anticoagulants; E87.8 Other disorders of electrolyte and fluid balance, not elsewhere classified; T39.395S Adverse effect of other nonsteroidal anti-inflammatory drugs [NSAID], sequela; E11.22 Type 2 diabetes mellitus with diabetic chronic kidney disease; E11.40 Type 2 diabetes mellitus with diabetic neuropathy, unspecified
CPT/HCPCS: 36415; 36600; 71045; 80048; 80053; 81001; 82550; 82553; 82570; 82805; 82948; 83605; 83880; 84156; 84484; 85025; 85610; 85730; 87040; 93005; 93306; 94640; 94660; 96374; 99284; G0378; J1940; J2920; J7512

== ENCOUNTER 2019-01-05 13:10 | Inpatient (IN) | payer BC, MEDICARE ==
[~2019-01-05] VITALS: Ht 175.3 cm; Wt 110.7 kg
[~2019-01-05 13:10] MED LIST changes: +ALCLOMETASONE TOP; +ALPRAZOLAM0.5 M1 PO; +HYPER-SAL4 M1 INH; +PREDNISONE10 MG PO; +RAPATHA INJ
--- OUTSIDE RECORDS SUMMARY | 2019-01-05 13:14 | XMS REPORT | Continuity of Care Document ---
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 11/20/2017 [facility] M54.9 DORSALGIA, UNSPECIFIED G95.9 DISE Active 06/12/2016 [facility] 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, UNSPECIFIE Active 04/04/2016 [facility] DX: M54.4=LUMBAGO WITH SCIATICA, UNSPECI Active 03/26/2016 [facility] R53.1 - WEAKNESS Active 03/18/2016 [facility] [place] Spinal stenosis, lumbar region without neurogenic claudication 03/12/2018 [facility] Spinal stenosis, cervical region 03/12/2018 [facility] Spinal stenosis, cervicothoracic region 03/12/2018 [facility] Afib Resolved Problem 12/30/2018 [facility] [place] Arthritis Resolved Problem 12/30/2018 [facility] [place] COPD Resolved Problem 12/30/2018 [facility] [place] Diabetes Resolved Problem 12/30/2018 [facility] [place] Hypertension Resolved Problem 12/30/2018 [facility] [place] Neuropathy Resolved Problem 12/30/2018 [facility] [place] Obesity Active Problem 12/30/2018 [facility] [place] Seborrheic dermatitis Resolved Problem 12/30/2018 [facility] [place] Arthropathy Resolved Problem 12/30/2018 [facility] [place] Atrial fibrillation and flutter Resolved Problem 12/30/2018 [facility] Backache Resolved Problem 12/30/2018 [facility] Benign prostatic hyperplasia with lower urinary tract symptoms Resolved Problem 12/30/2018 [facility] Bronchitis Resolved Problem 12/30/2018 [facility] Cataract Resolved Problem 12/30/2018 [facility] Chronic kidney disease (<span ID="[id number]">Confirmed</span>) Resolved Problem 12/30/2018 [facility] Diabetes mellitus type 1 Resolved Problem 12/30/2018 [facility] Glaucoma Resolved Problem 12/30/2018 [facility] Gout Resolved Problem 12/30/2018 [facility] Impotence, organic Resolved Problem 12/30/2018 [facility] Urinary frequency Resolved Problem 12/30/2018 [facility] Mumps Resolved Problem 12/30/2018 [facility] Nocturia Resolved Problem 12/30/2018 [facility] Peripheral vascular disease Resolved Problem 12/30/2018 [facility] Sleep apnea Resolved Problem 12/30/2018 [facility] Urgency of urination Resolved Problem 12/30/2018 [facility] Other specified urinary incontinence Resolved Problem 12/30/2018 [facility] UTI (<span ID="[id number]">Confirmed</span>) Resolved Problem 12/30/2018 [facility] Vertigo Resolved Problem 12/30/2018 [facility] [place] DORSALGIA, UNSPECIFIED Active [facility] DISEASE OF SPINAL CORD, UNSPECIFIED Active [facility] Medications Medication Details Route Status Patient Instructions Ordering Provider Order Date Source Allergies, Adverse Reactions, Alerts Substance Category Reaction Severity Reaction type Status Date Reported Comments Source Immunizations Immunization Date Given Site Status Last Updated Comments Source Results Order Name Results Value Reference Range Date Interpretation Comments Source Barium swallow DX Barium swallow DX Exam: Barium swallow esophagram Reason for Exam: - M13.10 Monoarthritis, not elsewhere classified, unspecified site Comparison Exam: None Discussion: On butcher view of the cervical spine, the prevertebral soft tissues are within normal limits. Metallic hardware is unremarkable. Patient ingested air crystals and barium. Upon deglutition, there was no evidence seen for aspiration or penetration. The valleculae and piriform sinuses are unremarkable. The esophagus is unremarkable in appearance, without evidence for mucosal abnormalities, abnormal filling defects, or external mass effect. No evidence seen for tertiary contraction waves or hiatal hernia. During the examination, there was no evidence seen for gastroesophageal reflux. The visualized portions of the stomach and duodenum are unremarkable. Fluoro time 1 minute, 48 seconds. Total exam RKG=5198 mGy-cm. Impression: 1. Unremarkable barium swallow esophagram 12/28/2018 - - Read by: Des Glover MD Dictated Date/time: 12/28/18 10:58 Electronically Signed by: Des Glover MD 12/28/18 11:05 FINAL REPORT [facility] Spine cervical 2 or 3 view DX Spine cervical 2 or 3 view DX Exam: Spine cervical 2 or 3 view DX Reason for Exam: Cervicalgia. Ankylosis spondylitis. Comparison Exam: X-ray 04/23/2016 and MRI exam 12/04/2017 Discussion: On lateral view, the cervical spine is seen from the C1 vertebral body level down through the C5/C6. Patient is status post anterior cervical fusion and interbody fusion seen from the C3-C5 levels. The metallic hardware appears intact. Vertebral body heights are maintained. No spondylolisthesis appreciated. No suspicious osteoblastic or osteolytic lesions. Prevertebral soft tissue is within normal limits. Lateral masses of C1 and dens of C2 appear intact. Please note that a cervical spine x-ray cannot rule out ligamentous injuries or spinal cord abnormalities. Visualized portions of the lung apices are unremarkable. Impression: 1. Metallic hardware appears intact. No spondylolisthesis within the visualized portions of the cervical spine. 12/28/2018 - - Read by: Des Glover MD Dictated Date/time: 12/28/18 10:52 Electronically Signed by: Des Glover MD 12/28/18 10:58 FINAL REPORT [facility] Spine lumbar wo contrast MRI Spine lumbar [...] bilateral neural foraminal narrowing at L4-L5. SL: [id number] 12/04/2017 - - Read by: Jeremi Estrella MD Dictated Date/time: 12/05/17 09:49 Electronically Signed by: Jeremi Estrella MD 12/05/17 09:53 FINAL REPORT [facility] Spine cervical wo contrast MRI Spine [...] foraminal narrowing, left greater than right. SL: [id number] 12/04/2017 - - Read by: Jeremi Estrella MD Dictated Date/time: 12/05/17 10:02 Electronically Signed by: Jeremi Estrella MD 12/05/17 10:07 FINAL REPORT [facility] Hip bilat w pelvis and both lat [...] MD 04/23/17 15:08 FINAL REPORT MEHNA[facility] Sacroiliac joints series DX Sacroiliac joints series [...] MD 04/23/17 15:09 FINAL REPORT MEHNA[facility] CHEM PANEL eGFR [...] should be multiplied by the estimated BMI. [facility] CHEM PANEL POC Creatinine 1.3 mg/dL 0.5 - 1.4 06/24/2016 [facility] Spine Thoracic w/wo contrast MRI Spine [...] nerve sheath tumor, or epidermoid cyst. SL: [id number] 06/24/2016 - - Read by: Jeremi Estrella MD Dictated Date/time: 06/24/16 11:42 Electronically Signed by: Jeremi Estrella MD 06/24/16 13:46 FINAL REPORT [facility] Spine lumbar w/wo contrast MRI Spine lumbar w/wo contrast MRI Patient Name: STEVE BENEDICT : 1945; Age: 70 years y/o Male MR: [id number] Study: Spine lumbar w/wo contrast MRI 06/24/2016 [...] compatible with acute on chronic denervation. SL: [id number] 06/24/2016 - - Read by: Jeremi Estrella MD Dictated Date/time: 06/24/16 11:35 Electronically Signed by: Jeremi Estrella MD 06/24/16 11:40 FINAL REPORT [facility] Spine lumbar wo contrast CT Spine [...] Timo Torres MD 06/19/16 17:38 FINAL REPORT [facility] Spine thoracic wo contrast CT Spine [...] Timo Torres MD 06/19/16 17:38 FINAL REPORT [facility] Spine cervical 2 or 3 view DX Spine [...] - This report was dictated by a Tube Balancer/Fellow. I have personally reviewed the images as well as the Resident's interpretation and agree with the findings. Read by: Shane Santos MD Resident: Shane Santos MD Dictated Date/time: 04/23/16 10:48 Electronically Signed by: Joseline Torres MD 04/23/16 17:41 FINAL REPORT [facility] CHEM [facility] eGFR 55 mL/min/1.73m2 04/10/2016 Result [...] should be multiplied by the estimated BMI. [facility] CHEM [facility] POC Creatinine 1.3 mg/dL 0.5 - 1.4 04/10/2016 [facility] Spine Thoracic w/wo contrast MRI Spine [...] Timo Torres MD 04/11/16 10:23 FINAL REPORT [facility] Spine lumbar w/wo contrast MRI Spine [...] smoking and anemia among other etiologies. SL: [id number] 03/28/2016 - - Read by: Dmitry Mullen MD Dictated Date/time: 03/28/16 08:23 Electronically Signed by: Dmitry Mullen MD 03/28/16 09:30 FINAL REPORT [facility] Vital Signs Vital Sign Value Date Comments Source Encounters Location Location Details Encounter Type Encounter Number Reason For Visit Attending Provider ADM Date DC Date Status Source [facility] [place] [facility] [id number] Monique Reed 03/06/2016 03/07/2016 [facility] Outpatient [id number] Christopher Summers 03/28/2016 03/29/2016 [facility] [place] [facility] [id number] Angel Martínez 04/02/2016 04/03/2016 [facility] Outpatient [id number] Elida Valenzuela 04/10/2016 04/11/2016 [facility] [place] [facility] [id number] Monique Reed 04/23/2016 04/24/2016 [facility] [place] [facility]patient [id number] FADI DANIEL 06/06/2016 [facility] Outpatient [id number] Fadi Daniel Jr 06/19/2016 06/20/2016 [facility] Outpatient [id number] Fadiehsan Daniel Jr 06/24/2016 06/25/2016 [facility] Outpatient [id number] FADI DANIEL 07/11/2016 [facility] [place] [facility] [id number] Mila Jones 04/23/2017 04/24/2017 [facility] [place] [facility] Outpatient [id number] Oleksandr Whitt 12/05/2017 12/05/2017 [facility] Outpatient [id number] [facility] 11/30/2018 [facility] Outpatient [id number] URODYNAMICS 12/16/2018 [facility] Outpatient [id number] [facility] 12/22/2018 [facility] [place] [facility] [id number] Mila Jones 12/28/2018 12/29/2018 [facility] [place] Outpatient [id number] [facility] 02/02/2019 [facility] Procedures Procedure Code Date Perfomer Comments Source Cystoscopy [id number] 08/25/2018 [facility] [place] Complex uroflowmetry [id number] 03/30/2018 [facility] [place] Catheter replacement [id number] [facility] Fusion<sup>1</sup> [id number] cervical fusion done on 09/11/[address] Nilo Adames [facility] Prostate manipulation [id number] [facility] Stent replacement [id number] [facility] Catheter replacement [id number] [facility] [place] Fusion<sup>1</sup> [id number] cervical fusion done on 09/11/[address] Nilo Adames [facility] [place] Prostate manipulation [id number] [facility] [place] Stent replacement [id number] [facility] [place]
--- OUTSIDE RECORDS SUMMARY | 2019-01-05 13:14 | XMS REPORT | Summary of Care ---
Author Author [facility] [place] Organization [facility] [place] Address Unknown Phone Unavailable Encounter JOSSELIN White(LENY) [id number] Date(s): 12/28/18 - 12/28/18 [facility] [place] [address] [place] [address] [phone] Discharge Disposition: Home or Self Care Attending Physician: Mila Jones MD Referring Physician: Mila Jones MD Vital Signs No data available for this section Problem List Condition Effective Dates Status Health Status Informant Afib(Confirmed) Resolved Arthritis(Confirmed) Resolved Arthropathy(Confirme Resolved d) Atrial fibrillation Resolved and flutter(Confirmed) Backache(Confirmed) Resolved Benign prostatic Resolved hyperplasia with lower urinary tract symptoms(Confirmed) Bronchitis(Confirmed Resolved ) Cataract(Confirmed) Resolved Chronic kidney Resolved disease (CKD)(Confirmed) COPD(Confirmed) Resolved Diabetes mellitus Resolved type 1(Confirmed) Diabetes(Confirmed) Resolved Glaucoma(Confirmed) Resolved Gout(Confirmed) Resolved Hypertension(Confirm Resolved ed) Impotence, Resolved organic(Confirmed) Urinary Resolved frequency(Confirmed) Mumps(Confirmed) Resolved Neuropathy(Confirmed Resolved ) Nocturia(Confirmed) Resolved Obesity(Confirmed) Active Peripheral vascular Resolved disease(Confirmed) Seborrheic Resolved dermatitis(Confirmed ) Sleep Resolved apnea(Confirmed) Urgency of Resolved urination(Confirmed) Other specified Resolved urinary incontinence(Confirm ed) UTI (urinary tract Resolved infection)(Confirmed ) Vertigo(Confirmed) Resolved Allergies, Adverse Reactions, Alerts Substance Reaction Severity Status NKDA Active Medications No data available for this section Results No data available for this section Immunizations No data available for this section Procedures Procedure Date Related Diagnosis Body Site Status Cystoscopy 08/25/18 Completed Complex uroflowmetry 03/30/18 Completed Catheter replacement Completed Fusion1 Completed Prostate manipulation Completed Stent replacement Completed 1cervical fusion done on 09/11/[address] Nilo Adames Social History Social History Type Response Smoking Status Former smoker; Ready to change: No; Concerns about tobacco use in household: No; Exposure to Tobacco Smoke None; Cigarette Smoking Last 365 Days No; Reg Smoking Cessation Counseling No; Other Tobacco Frequency QUIT SMOKING 2011; entered on: 12/22/18 Assessment and Plan No data available for this section
[2019-01-05] MEDS ORDERED: FUROSEMIDE INJ 10 MG/ML 4 ML VIAL IV ONE (14:30)
[2019-01-05 14:42] LABS: BASOPHILS % 0.9 % (0.0-1.0); EOSINOPHILS # (AUTO) 0.3 (0.0-0.4); EOSINOPHILS % 6.9 % (0.0-6.0); HEMATOCRIT 55.5 % (38.2-49.6); HEMOGLOBIN 16.2 g/dL (14.0-18.0); LYMPHOCYTES # (AUTO) 0.8 (1.0-3.2); LYMPHOCYTES % 17.7 % (18.0-39.1); MEAN CORPUSCULAR HGB CONC 29.2 g/dL (31-35); MEAN CORPUSCULAR VOLUME 92.7 fL (81-99); MONOCYTES # (AUTO) 0.5 (0.2-0.8); MONOCYTES % 11.9 % (4.4-11.3); NEUTROPHILS # (AUTO) 2.8 (2.1-6.9); NEUTROPHILS % 62.2 % (38.7-80.0); PLATELET COUNT 171 x10e3/uL (140-360); RED BLOOD COUNT 5.99 x10e6/uL (4.3-5.7); RED CELL DISTRIBUTION WIDTH 18.1 % (11.7-14.4)
[2019-01-05 14:50] LABS: INR 1.24; PARTIAL THROMBOPLASTIN TIME 38.8 seconds (23.8-35.5); PROTHROMBIN TIME 16.2 seconds (11.9-14.5)
[2019-01-05 14:59] LABS: ALBUMIN 3.5 g/dL (3.5-5.0); ALBUMIN/GLOBULIN RATIO 1.1 (0.8-2.0); ANION GAP 9.8 mmol/L (8-16); CREATININE, SERUM 1.47 mg/dL (0.72-1.25); POTASSIUM 3.8 mmol/L (3.5-5.1)
[2019-01-05 15:06] LABS: CREATINE KINASE MB 1.7 ng/mL (0-5.0)
[2019-01-05 15:07] LABS: B-TYPE NATRIURETIC PEPTIDE2 344.6 pg/mL (0-100)
--- NOTE | 2019-01-05 17:18 | Diagnostic Imaging Report ---
EXAMINATION: CHEST SINGLE (PORTABLE) INDICATION: Retaining water in both legs. History of COPD and shortness of breath. No chest pain. COMPARISON: Chest x-ray 12/11/2018. FINDINGS: AP view TUBES and LINES: Right-sided portacatheter with tip at the lower SVC. LUNGS: Lungs are well inflated. Focal airspace opacity in the left lung base with platelike atelectasis. PLEURA: No pleural effusion or pneumothorax. HEART AND MEDIASTINUM: Cardiac size is mildly enlarged. There are atherosclerotic calcifications within the aorta. BONES AND SOFT TISSUES: No acute osseous lesion. Multiple healed left rib fracture deformities. Soft tissues are unremarkable. UPPER ABDOMEN: No free air under the diaphragm. IMPRESSION: Focal airspace opacity in the left lung base with platelike atelectasis. Correlate for recent pneumonia. Signed by: Dr. Jeremias Torres M.D. on 01/05/2019 5:15 PM
[2019-01-05] MEDS ORDERED: SODIUM CHLORIDE 0.9% 500ML 500 ML IV ONE (18:15)
--- NOTE | 2019-01-05 21:17 | Diagnostic Imaging Report ---
EXAM: CT Chest WITH contrast (PE Protocol) INDICATION: Shortness of breath COMPARISON: Chest x-ray 01/05/2019 TECHNIQUE: Chest was scanned utilizing a multidetector helical scanner from the lung apex through the level of the diaphragm after administration of IV contrast. Thin section reconstructions were obtained with special concentration on the pulmonary arteries. Coronal and sagittal reformations were obtained. Pulmonary embolism protocol was performed. MIP reconstruction images in sagittal and coronal performed by the technologist at the scanner workstation. IV CONTRAST: 100 mL of Isovue 370 COMPLICATIONS: None RADIATION DOSE: Total DLP: 653.84 mGy*cm Estimated effective dose: (DLP x 0.014 x size factor) mSv CTDIvol has been reviewed. It is below the limits set by the Radiation Protocol Committee (RPC). Dose modulation, iterative reconstruction, and/or weight based adjustment of the mA/kV was utilized to reduce the radiation dose to as low as reasonably achievable. FINDINGS: LINES/ TUBES: LAD and right coronary artery stent versus severe coronary artery calcifications. LUNGS AND AIRWAYS: No filling defect is identified within the pulmonary arteries to the segmental level. Severe centrilobular emphysema. Lingular atelectasis. Airways are normal. PLEURA: The pleural spaces are clear. HEART AND MEDIASTINUM: The thyroid gland is normal. No mediastinal, hilar or axillary lymphadenopathy. The heart is mildly enlarged. There is no pericardial effusion. Main pulmonary artery measures 3.6 cm in diameter and the ascending aorta measures 3.4 cm. UPPER ABDOMEN: Lobular liver contour suggestive of developing cirrhosis. Spleen is enlarged measuring 15.1 cm in AP dimension with lobulation. Multiple cystic lesions in the left kidney. BONES: The visualized bony thorax is within normal limits. Old healed left posterior rib fracture deformities. Anterior cervical fusion plate. SOFT TISSUES: Unremarkable. IMPRESSION: 1. No pulmonary emboli. 2. Severe emphysema. 3. Cirrhotic liver morphology with moderate splenomegaly. 4. Incompletely characterized renal cystic lesions. Recommend nonemergent renal ultrasound or CT or MR abdomen without and with contrast for further characterization. Signed by: Dr. Jeremias Torres M.D. on 01/05/2019 9:13 PM
[2019-01-05] MEDS ORDERED: METHYLPREDNISOLONE SOD SUCC 125 MG/2ML VIAL IV NR (21:30)
[2019-01-05] MEDS ORDERED: ALBUTEROL/IPRATROPIUM 3 ML NEB NEB NR (21:30)
[2019-01-05] MEDS ORDERED: AZITHROMYCIN 500MG/NS 250 ML 250 ML IV SCH (22:00)
[2019-01-05] MEDS ORDERED: CEFTRIAXONE SOD 1 GM VIAL IV SCH ×2 (22:00→23:11)
[2019-01-05] MEDS ORDERED: SODIUM CHLORIDE FLUSH 10 ML SYR INJ PRN ×2 (22:00→23:15)
[2019-01-05 22:25] VITALS: BP 114/65
--- NOTE | 2019-01-05 22:25 | NUR ---
pt received from er via stretcher. pt made comfortable and oriented to rm. no ss of distress noted. no co pain upon admission. tele in place. 02 nc noted. right chest wall picc line cdi. pt co left ac 18g hurting. iv dc'd catheter tip intact. drsg applied to site. x1 attempt left fa 20g successful. blood obtained at time and sent to lab per orders. hx obtained at time. will cont to follow poc. call cassidy within reach.
[2019-01-05] MEDS ORDERED: SODIUM CHLORIDE 0.9% 50ML 50 ML ONE (22:35)
[2019-01-05] MEDS ORDERED: IOPAMIDOL 370 MG/ML 200 ML INFUS..BTL INJ ONE (22:35)
[2019-01-05] MEDS ORDERED: ALBUTEROL/IPRATROPIUM 3 ML NEB NEB SCH (23:00)
[2019-01-05] MEDS ORDERED: CEFTRIAXONE SOD 1 GM/NS 50 ML 50 ML IV ONE (23:16)
[2019-01-05] MEDS: METHYLPREDNISOLONE SOD SUCC 40 MG/ML VIAL 1ML IV SCH (23:29)
[2019-01-05 23:30] VITALS: BP 114/65
[2019-01-05] MEDS: SPIRONOLACTONE 25 MG TAB PO SCH (23:45)
[2019-01-06] VITALS (8 sets, daily range): BP systolic 100–123; BP diastolic 56–69
[2019-01-06] MEDS ORDERED: METHYLPREDNISOLONE SOD SUCC 40 MG/ML VIAL 1ML IV SCH
[2019-01-06 00:01] LABS: CREATINE KINASE MB 1.6 ng/mL (0-5.0)
[2019-01-06] MEDS: AZITHROMYCIN 500MG/NS 250 ML 250 ML IV SCH (00:18)
[2019-01-06 01:36] LABS: ABG PH 7.35 (7.31-7.41)
[2019-01-06 01:39] LABS: ABG HCO3 36 mmol/L (23-28); ABG PCO2 66 mmHg (41-51); ABG PO2 98 mmHg (80-105)
[2019-01-06] MEDS ORDERED: MYRBETRIQ50 MG PO (02:32)
[2019-01-06] MEDS: ALBUTEROL/IPRATROPIUM 3 ML NEB NEB SCH ×3 (03:00→14:23)
--- NOTE | 2019-01-06 04:31 | NUR ---
pt resting. no ss of distress noted. call cassidy within reach.
[2019-01-06] MEDS: METHYLPREDNISOLONE SOD SUCC 40 MG/ML VIAL 1ML IV SCH ×3 (05:48→18:17)
[2019-01-06 05:54] LABS: BASOPHILS % 0.4 % (0.0-1.0); EOSINOPHILS % 0.7 % (0.0-6.0); HEMATOCRIT 50.8 % (38.2-49.6); HEMOGLOBIN 14.9 g/dL (14.0-18.0); LYMPHOCYTES # (AUTO) 0.7 (1.0-3.2); LYMPHOCYTES % 15.2 % (18.0-39.1); MEAN CORPUSCULAR HEMOGLOBIN 26.7 pg (28-32); MEAN CORPUSCULAR HGB CONC 29.3 g/dL (31-35); MONOCYTES # (AUTO) 0.2 (0.2-0.8); MONOCYTES % 3.3 % (4.4-11.3); NEUTROPHILS # (AUTO) 3.6 (2.1-6.9); PLATELET COUNT 163 x10e3/uL (140-360); RED BLOOD COUNT 5.58 x10e6/uL (4.3-5.7); RED CELL DISTRIBUTION WIDTH 17.4 % (11.7-14.4)
[2019-01-06 06:10] LABS: ANION GAP 9.3 mmol/L (8-16); CALCIUM 8.3 mg/dL (8.4-10.2); CREATININE, SERUM 1.36 mg/dL (0.72-1.25); POTASSIUM 4.3 mmol/L (3.5-5.1)
[2019-01-06 06:21] LABS: CREATINE KINASE MB 2.7 ng/mL (0-5.0)
--- NOTE | 2019-01-06 06:26 | NUR ---
dr johnson paged in regards to new consult. will notify oncoming nurse.
--- NOTE | 2019-01-06 07:28 | NUR ---
Received patient awake in bed no signs of distress. Call light in reach, will continue to monitor.
[2019-01-06] MEDS ORDERED: HYDROMORPHONE HCL 8 MG PO PRN (08:00)
[2019-01-06] MEDS ORDERED: ALPRAZOLAM 0.5 MG TAB PO SCH (08:00)
[2019-01-06] MEDS ORDERED: CARISOPRODOL 350 MG TAB PO PRN (08:00)
[2019-01-06] MEDS ORDERED: DEXTROSE 50% SYRINGE 50 ML IV PRN (08:30)
[2019-01-06] MEDS ORDERED: ACETAMINOPHEN 325 MG TAB PO PRN (08:30)
[2019-01-06] MEDS ORDERED: ONDANSETRON HCL INJ 2MG/ML 2ML 2 MG/ML VIAL IV PRN (08:30)
[2019-01-06] MEDS ORDERED: HYDRALAZINE HCL 20 MG/ML VIAL IV PRN (08:30)
[2019-01-06] MEDS: SPIRONOLACTONE 25 MG TAB PO SCH ×2 (08:56→16:28)
[2019-01-06] MEDS: BACLOFEN 10 MG TAB PO SCH ×3 (08:56→21:00)
[2019-01-06] MEDS: METOPROLOL TARTRATE 25 MG TAB PO SCH ×2 (08:56→20:54)
[2019-01-06] MEDS: CLOPIDOGREL BISULFATE 75 MG TAB PO SCH (08:56)
[2019-01-06] MEDS: LIOTHYRONINE SODIUM 5 MCG TAB PO SCH (08:56)
[2019-01-06] MEDS: LEVOTHYROXINE SODIUM 50 MCG TAB PO SCH (08:56)
[2019-01-06] MEDS: ASPIRIN 81 MG CHEW TAB PO SCH (08:56)
[2019-01-06] MEDS: POTASSIUM CHLORIDE 20 MEQ TAB CR PO SCH ×2 (08:56→20:55)
[2019-01-06] MEDS: GUAIFENESIN 600MG/DEXTROMETHORPHAN 30MG TABSR PO SCH ×2 (08:56→16:28)
[2019-01-06] MEDS ORDERED: SPIRONOLACTONE 25 MG TAB PO SCH ×2 (09:00)
--- NOTE | 2019-01-06 09:00 | NUR ---
Patient A/O X3, even respirations on 4LNC. Tele #21 a-fib. Left FA 20 gauge IV saline locked. Patient voids in toilet and is ambulatory with standby assist. Bowel sounds active. 4+ pitting edema and redness to BLE. Call light in reach, will continue to monitor.
[2019-01-06 09:19] LABS: B-TYPE NATRIURETIC PEPTIDE2 338.4 pg/mL (0-100)
[2019-01-06 09:33] LABS: FREE T4 (FREE THYROXINE) 0.76 ng/dL (0.9-1.8); THYROID STIMULATING HORMONE 0.739 uIU/mL (0.350-4.940)
[2019-01-06] MEDS ORDERED: ALPRAZOLAM 0.5 MG TAB PO PRN (10:15)
[2019-01-06] MEDS ORDERED: HYDROMORPHONE HCL 2 MG TAB PO PRN (10:15)
--- NOTE | 2019-01-06 12:14 | Diagnostic Imaging Report ---
EXAM: US ABDOMEN COMPLETE DATE: 01/06/2019 12:00 AM INDICATION: Chronic renal insufficiency COMPARISON: Renal ultrasound, 07/31/2018 FINDINGS: Grayscale and color flow Doppler ultrasound of the abdomen was performed. Liver: 18.9 cm span, hepatomegaly. Hyperechoic parenchyma compatible with steatosis. No intrahepatic mass or dilatation of bile ducts. Main portal vein 1.2 cm, nondilated, normal hepatopetal flow. Spleen: 13.2 cm span, borderline splenomegaly. Biliary: There are no shadowing gallstones. Small amount of echogenic sludge is seen within the gallbladder. No gallbladder wall thickening. Sonographic Tomlinson sign negative. Common bile duct 0.5 cm, normal. Pancreas: Obscured by overlying bowel. Right kidney: 12.5 x 5.0 x 4.9 cm. Normal cortical echogenicity. No hydronephrosis. Lower pole cyst measures 3.4 x 2.9 x 2.9 cm (previous 2.0 x 2.3 x 2.4 cm). Left kidney: 12.2 x 5.2 x 4.4 cm. Normal cortical echogenicity. No hydronephrosis. Left renal cysts measure 3.4 x 3.5 x 3.9 cm at the medial mid left kidney (previous 3.1 x 2.8 x 2.5 cm) and 2.0 x 1.3 x 2.2 cm at the lower pole (previous 1.8 x 1.9 x 1.3 cm). A third cyst previously noted at the lower pole is not visualized on the current exam. Vessels: Aorta and IVC are largely obscured by bowel. Visualized portions unremarkable. Ascites: None IMPRESSION: 1. No sonographic evidence for acute abdominal pathology. 2. Hepatomegaly with steatosis. Borderline splenomegaly. 3. No hydronephrosis. Bilateral renal cysts again noted, minimally larger than on previous exam. Signed by: Dr. Beka Finney M.D. on 01/06/2019 12:10 PM
[2019-01-06] MEDS: INSULIN LISPRO 100 UNIT/1 ML 3ML VIAL SQ SCH ×3 (13:01→21:01)
[2019-01-06] MEDS: SODIUM CHLORIDE 0.9% IV SCH (14:55)
[2019-01-06] MEDS: BUMETANIDE IV SCH (14:55)
--- NOTE | 2019-01-06 14:55 | NUR ---
Order to start Bumex drip at 2.5 mls/hr. No signs of distress, call light in reach. Will continue to monitor.
[2019-01-06] MEDS ORDERED: BUMETANIDE INJ 0.25MG/ML 4ML VIAL IV ONE (15:00)
[2019-01-06 15:09] LABS: CREATINE KINASE MB 2.5 ng/mL (0-5.0)
[2019-01-06] MEDS ORDERED: FUROSEMIDE 40 MG TAB PO SCH (18:00)
[2019-01-06] MEDS ORDERED: SALINE 0.65% NAS SOLN 1 SPRAY BTL PRN (18:45)
--- NOTE | 2019-01-06 20:08 | Consultation ---
DATE OF CONSULTATION: 01/06/2019 Renal Consultation REASON FOR CONSULTATION: Chronic kidney disease and volume overload. HISTORY OF PRESENT ILLNESS: A 73-year-old male with a history of stage 3 chronic kidney disease and congestive heart failure, who was just recently discharged from [facility], presented with 3-week history of swelling and shortness of breath. The patient is currently undergoing treatment for multidrug resistant urinary tract infection. He states swelling got worse as did his shortness of breath despite taking Lasix 80 mg twice daily and he presented to the emergency room. The patient was admitted and Nephrology consultation was called. REVIEW OF SYSTEMS: As above. All other systems negative. PAST MEDICAL HISTORY: 1. 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 2. Coronary artery disease, status post stenting x4. 3. Atrial fibrillation, on anticoagulation. 4. Congestive heart failure, diastolic. 5. Chronic venous insufficiency. 6. Hypertension. 7. Dyslipidemia. 8. COPD. 9. Diabetes type 2, complicated by neuropathy. 10. Gout. 11. Glaucoma. 12. History of urinary retention. 13. Ankylosing spondylitis. PAST SURGICAL HISTORY: Cardiac stent. SOCIAL HISTORY: History of tobacco. No alcohol. No IV drugs. FAMILY HISTORY: No family history of kidney disease. ALLERGIES: NO KNOWN DRUG ALLERGIES. CURRENT MEDICATIONS: See list. Include spironolactone, Lasix, and ceftriaxone. PHYSICAL EXAMINATION: VITAL SIGNS: Blood pressure 100/65, pulse 99, respiratory rate 18, and temperature 97.5. GENERAL: No apparent distress. HEENT: Oropharynx is clear. No scleral icterus. No peripheral edema. NECK: Supple. Difficult to assess jugular venous pressure. CHEST: Decreased breath sounds at bases anteriorly bilaterally. CARDIOVASCULAR: Regular rhythm. ABDOMEN: Soft. Positive bowel sounds. No tenderness. EXTREMITIES: 2+ pitting edema. SKIN: Some erythema. IMAGING: Chest x-ray, focal airspace in the left lung base with platelike atelectasis. CT of the chest; severe centrilobular emphysema, lingular atelectasis. Abdominal ultrasound; right kidney 12.5, left kidney 12.2, no hydronephrosis, bladder. LABORATORY DATA: White count 4.48, hemoglobin 14, hematocrit 50, and platelets 163. Sodium 135, potassium 4.3, chloride 94, CO2 of 36, BUN 19, creatinine 1.36. BNP 344. ASSESSMENT AND PLAN: 1. Stage 3 chronic kidney disease. The patient is approximately at baseline. We will not do any further workup. 2. Volume overload. We will place the patient on Bumex drip and suspect we will need to change him to Bumex or Demadex at discharge. 3. Electrolytes, acceptable. 4. Chronic obstructive pulmonary disease. The patient's chest x-ray looks like he has combination of congestive heart failure and chronic obstructive pulmonary disease. We will follow. 5. Hypertension. Blood pressure acceptable. MD WES Franco/STEVE /[id number]
--- NOTE | 2019-01-06 20:33 | Consultation ---
DATE OF CONSULTATION: 01/06/2019 Cardiology Consultation REASON FOR CONSULTATION: Congestive heart failure. HISTORY OF PRESENT ILLNESS: This is a 73-year-old man with coronary artery disease with recent stent, atrial fibrillation on Xarelto, chronic diastolic heart failure, hypertension, hyperlipidemia, cirrhosis, and chronic kidney disease, who is well known to our service, who presents with worsening lower extremity edema and shortness of breath. The patient had recently been admitted into the hospital in November for volume overload attributed to acute on chronic diastolic heart failure. Since discharge, the patient reports he has had worsening lower extremity swelling and shortness of breath for the last two weeks. He denied any chest pain, palpitations, orthopnea, or PND. He was seen in the office yesterday with report of 18 pounds of weight gain and was subsequently instructed to present to the ER for further evaluation. REVIEW OF SYSTEMS: Negative except as per HPI. PAST MEDICAL HISTORY: 1. Coronary artery disease, status post stent. 2. Atrial fibrillation, on Xarelto. 3. Chronic diastolic heart failure. 4. Chronic kidney disease. 5. Evidence of cirrhosis on CT chest. 6. Diabetes mellitus. 7. Hypertension. 8. COPD. PAST SURGICAL HISTORY: PCI. ALLERGIES: NO KNOWN DRUG ALLERGIES. MEDICATIONS: Please see medication reconciliation. SOCIAL HISTORY: No tobacco, alcohol, or illicit drugs. FAMILY HISTORY: Noncontributory to current illness. OBJECTIVE: VITAL SIGNS: Temperature 97.5 degrees, pulse 99, respiratory rate 18, blood pressure 100/65, and oxygen saturation 95%. GENERAL: Well-developed, well-nourished man, in no acute distress. HEENT: Normocephalic, atraumatic. Pupils equal. No scleral icterus. NECK: Supple. No thyromegaly or cervical lymphadenopathy. No carotid bruits. LUNGS: Clear to auscultation bilaterally. No wheezes or crackles. CARDIOVASCULAR: Normal rate, regular rhythm. No murmur. Normal S1, S2. ABDOMEN: Soft, nontender. EXTREMITIES: 2+ pitting edema bilaterally. NEUROLOGIC: Nonfocal exam. LABS: WBC 4.48, hemoglobin 14.9, hematocrit 50.8, and platelets 163. Sodium 135, potassium 4.3, chloride 94, CO2 of 36, BUN 19, creatinine 1.36. Troponin 0.012. BNP 338. IMAGING: Ultrasound of abdomen; no sonographic evidence for acute abdominal pathology, hepatomegaly with steatosis, borderline splenomegaly, no hydronephrosis, bilateral renal cysts again noted minimally larger than on previous exam. CT of chest; no pulmonary emboli, severe emphysema, cirrhotic liver morphology with moderate splenomegaly, incompletely characterized renal cystic lesions. EKG; atrial fibrillation, left axis deviation, anterior infarct age undetermined. IMPRESSION: 1. Volume overload. 2. Acute on chronic diastolic heart failure. 3. Evidence of cirrhosis on CT imaging. 4. Chronic kidney disease. 5. Coronary artery disease, status post recent stent. 6. Atrial fibrillation, on Xarelto. 7. Diabetes mellitus. 8. Hypertension. 9. Chronic obstructive pulmonary disease. RECOMMENDATIONS: The patient's BNP is higher than prior. He has been started on Bumex drip per Nephrology. Monitor creatinine closely. Strict I's and O's and daily weights. Continue home cardiac medications otherwise including dual antiplatelet therapy given his very recent stent. Continue Xarelto for CVA prophylaxis, this may be held if necessary for any planned procedures. Given finding of cirrhosis on CT, consider GI evaluation. Thank you for this consult. We will continue to follow. Zenaida Randolph MD ABS/MODL /[id number]
[2019-01-06] MEDS: ROPINIROLE HCL 0.25 MG TAB PO SCH (20:59)
[2019-01-06] MEDS: SERTRALINE HCL 50 MG TAB PO SCH (21:00)
[2019-01-06] MEDS: PRAMIPEXOLE DIHYDROCHLORIDE 0.25 MG TAB PO SCH (21:00)
[2019-01-06] MEDS: RIVAROXABAN 15 MG TABLET PO SCH (21:00)
[2019-01-06] MEDS: PANTOPRAZOLE SOD 40 MG TABEC PO SCH (21:00)
[2019-01-06] MEDS: IPRATROPIUM BROMIDE 0.06% 42 MCG NASPR NS SCH (22:00)
--- NOTE | 2019-01-06 22:02 | Consultation ---
DATE OF CONSULTATION: 01/06/2019 Pulmonary Medicine Consult. REASON FOR REFERRAL: Shortness of breath. HISTORY: Mr. Sharma is a pleasant 73-year-old gentleman with shortness of breath. The patient was in a reasonable state of health the day before when I spoke to him; however, toward the evening he began to get worse. He had dyspnea on exertion. He had increasing foot swelling and calf pain. He gained more than 3 pounds in the week. At this point, he elected to go to the emergency room. Chest x-ray with small atelectatic infiltrate. CT chest with no unexpected findings, however, it suggested significant hyperinflation and emphysema. The patient noted with large edema, confirmed 3+. He was admitted to the hospital. He states he is using his CPAP about 2 hours per night recently and he is trying to get used to it. The patient with known COPD under my care in clinic. The patient has asthma coexisting. Remains on multiple breathing treatments. PAST MEDICAL HISTORY: CHF, LVEF 64%. Atrial fibrillation. CKD. Hypertension. Asthma/COPD. Diabetes. Hypothyroidism. BPH. Obstructive sleep apnea, mild. Severe periodic limb movements in sleep. Early Parkinson's. MEDICATIONS: Medication list reviewed per the chart records. ALLERGIES: NO KNOWN DRUG ALLERGIES. SOCIAL HISTORY: No active smoking. No active drinking. No drugs. FAMILY HISTORY: Noncontributory to this. REVIEW OF SYSTEMS: GENERAL: No weight loss. OPHTHALMOLOGIC: No double vision. ENT: No dry mouth. ENDOCRINE: Without thyroid abnormality. PULMONARY: No lungs surgeries. CARDIAC: No recent myocardial infarction. GI: No constipation. : No blood in urine. MUSCULOSKELETAL: With mild arthritis. DERMATOLOGIC: Some stasis changes in legs. Otherwise, no rash. PHYSICAL EXAMINATION: VITAL SIGNS: Afebrile. Vital signs noted and reviewed per the chart record. GENERAL: In no acute distress. Alert and calm, although increased work of breathing and recruitment of accessory muscles of breathing. HEENT: Normocephalic, atraumatic. NECK: Supple. Throat midline. LUNGS: Bilateral air entry, prolonged expiratory phase, mild wheezing. CARDIOVASCULAR: S1, S2. No murmurs, rubs, or gallops. ABDOMEN: Soft, nontender. EXTREMITIES: No clubbing, no cyanosis. There is 3+ edema. INTEGUMENT: No rash or purpura. LABORATORY DATA: White count is 5, hematocrit 51, platelets 163. Potassium 4.3. Creatinine 1.4. IMPRESSION AND PLAN: 1. Chronic obstructive pulmonary disease with exacerbation. 2. Fluid overload. 3. Ankylosing spondylitis . 4. Chronic kidney disease. 5. obstruction. 6. Intermittent asthma. 7. Mild obstructive sleep apnea. 8. Severe periodic limb movements. 9. Atrial fibrillation history. 10. Hypertension. 11. Diabetes. 12. Hypothyroidism. 13. Benign prostate hypertrophy. At this time, the patient will receive antibiotics. Steroids ongoing and we will wean this tomorrow. Diuretics continue and the patient is already peeing a lot. We are going to wean oxygen as tolerated. Currently, he is on 4 L/minute. Mobilize the patient with physical therapy starting tomorrow. We will follow on closely. I would like to thank and Dr. Kavon Short for allowing me to participate in the care of Mr. Sharma. Do not hesitate to contact me if I could help in any way. MD BREANNA Paulino/STEVE /[id number]
[2019-01-06] MEDS: CEFTRIAXONE SOD 1 GM/NS 50 ML 50 ML IV SCH (23:36)
[2019-01-07] VITALS (7 sets, daily range): BP systolic 86–126; BP diastolic 52–71
[2019-01-07] MEDS: AZITHROMYCIN 500MG/NS 250 ML 250 ML IV SCH (00:08)
[2019-01-07] MEDS: METHYLPREDNISOLONE SOD SUCC 40 MG/ML VIAL 1ML IV SCH ×4 (00:15→21:33)
[2019-01-07 06:04] LABS: BASOPHILS % 0.1 % (0.0-1.0); HEMATOCRIT 49.2 % (38.2-49.6); HEMOGLOBIN 14.6 g/dL (14.0-18.0); LYMPHOCYTES # (AUTO) 0.9 (1.0-3.2); LYMPHOCYTES % 13.3 % (18.0-39.1); MEAN CORPUSCULAR HGB CONC 29.7 g/dL (31-35); MEAN CORPUSCULAR VOLUME 91.1 fL (81-99); MONOCYTES # (AUTO) 0.2 (0.2-0.8); MONOCYTES % 2.6 % (4.4-11.3); NEUTROPHILS # (AUTO) 5.8 (2.1-6.9); NEUTROPHILS % 83.7 % (38.7-80.0); PLATELET COUNT 197 x10e3/uL (140-360); RED CELL DISTRIBUTION WIDTH 17.3 % (11.7-14.4)
[2019-01-07] MEDS: IPRATROPIUM BROMIDE 0.06% 42 MCG NASPR NS SCH ×3 (06:17→22:00)
[2019-01-07 06:26] LABS: ANION GAP 10.4 mmol/L (8-16); CALCIUM 8.4 mg/dL (8.4-10.2); CREATININE, SERUM 1.28 mg/dL (0.72-1.25); MAGNESIUM 2.3 MG/DL (1.3-2.1); POTASSIUM 4.4 mmol/L (3.5-5.1)
[2019-01-07] MEDS: LEVOTHYROXINE SODIUM 50 MCG TAB PO SCH (06:34)
[2019-01-07] MEDS: LIOTHYRONINE SODIUM 5 MCG TAB PO SCH (06:34)
--- NOTE | 2019-01-07 06:59 | NUR ---
REPORT GIVEN TO ONCOMING NURSE.WALKING ROUNDS MADE.PT RESTING IN BED WITH NO S/S OF DISTRESS.
--- NOTE | 2019-01-07 07:12 | NUR ---
Received patient and walking rounds complete. Patient awake at this time, no signs of distress. Call light in reach, will continue to monitor.
[2019-01-07] MEDS: SPIRONOLACTONE 25 MG TAB PO SCH ×2 (08:24→16:31)
[2019-01-07] MEDS: ASPIRIN 81 MG CHEW TAB PO SCH (08:24)
[2019-01-07] MEDS: METOPROLOL TARTRATE 25 MG TAB PO SCH ×2 (08:24→21:32)
[2019-01-07] MEDS: POTASSIUM CHLORIDE 20 MEQ TAB CR PO SCH ×2 (08:24→21:32)
[2019-01-07] MEDS: GUAIFENESIN 600MG/DEXTROMETHORPHAN 30MG TABSR PO SCH ×2 (08:25→16:31)
[2019-01-07] MEDS: BACLOFEN 10 MG TAB PO SCH ×3 (08:25→21:32)
[2019-01-07] MEDS: CLOPIDOGREL BISULFATE 75 MG TAB PO SCH (08:35)
--- NOTE | 2019-01-07 09:00 | NUR ---
Patient A/O X3, even respirations on RA. Bowel sounds active. 3+ pitting edema to BLE. Redness on lower extremities. Educated patient to elevate legs on pillow to help with swelling. Left FA 20 gauge IV with Bumex drip. Tele #21 A-fib. Patient has a PICC line in place and came in with it. No orders to access line at this time. Call light in reach, will continue to monitor.
[2019-01-07] MEDS: INSULIN LISPRO 100 UNIT/1 ML 3ML VIAL SQ SCH ×4 (09:03→21:33)
[2019-01-07 11:47] LABS: BILIRUBIN,URINE NEGATIVE (NEGATIVE); CLARITY,URINE CLEAR (CLEAR); COLOR,URINE STRAW (YELLOW); KETONES,URINE NEGATIVE (NEGATIVE); LEUKOCYTE ESTERASE ,URINE NEGATIVE (NEGATIVE); NITRITE,URINE NEGATIVE (NEGATIVE); PROTEIN,URINE DIPSTICK NEGATIVE (NEGATIVE); URINE UROBILINOGEN 0.2 mg/dL (0.2 - 1)
[2019-01-07 11:51] LABS: EPITHELIAL CELLS,URINE MODERATE /LPF
[2019-01-07 11:52] LABS: HYALINE CASTS >15 (0-1); WBC,URINE (MAN) 0-5 /HPF (0-5)
[2019-01-07 11:55] LABS: TRANSITIONAL EPI CELLS,URINE RARE
[2019-01-07] MEDS: SODIUM CHLORIDE 0.9% IV SCH (14:50)
[2019-01-07] MEDS: BUMETANIDE IV SCH (14:50)
--- NOTE | 2019-01-07 15:00 | Progress Note ---
DATE: 01/07/2019 Cardiology Progress Note SUBJECTIVE: The patient denies chest pain. He reports that shortness of breath has improved. OBJECTIVE: VITAL SIGNS: Temperature 96.3 degrees, pulse 80, respiratory rate 18, blood pressure 126/71, oxygen 95% on 4 L nasal cannula. GENERAL: Elderly man, in no acute distress. Awake and alert. LUNGS: Clear to auscultation bilaterally. No wheezes or crackles. CARDIOVASCULAR: Normal rate, regular rhythm. No murmur. Normal S1, S2. ABDOMEN: Soft, nontender. EXTREMITIES: 2+ pitting edema bilaterally. CARDIAC MEDICATIONS: Plavix 75 mg p.o. daily, metoprolol tartrate 25 mg p.o. q.12 hours, aspirin 81 mg p.o. daily, spironolactone 50 mg p.o. b.i.d., liothyronine 5 mcg p.o. daily, levothyroxine 100 mcg p.o. daily, rivaroxaban 15 mg p.o. q.h.s. LABORATORY DATA: WBC 6.93, hemoglobin 14.6, hematocrit 49.2, and platelets 197. Sodium 137, potassium 4.4, chloride 95, CO2 of 36, BUN 22, creatinine 1.28. BNP 374. Telemetry, atrial fibrillation. IMPRESSION: 1. Volume overload. 2. Xqcqm-mh-[id number] diastolic heart failure. 3. Evidence of cirrhosis on CT imaging. 4. Chronic kidney disease. 5. Coronary artery disease, status post recent stent. 6. Atrial fibrillation, on Xarelto. 7. Diabetes mellitus. 8. Hypertension. 9. Chronic obstructive pulmonary disease. RECOMMENDATIONS: The patient's symptoms are improving. Continue Bumex for diuresis. Strict I's and O's and daily weights. Suspect volume overload is a combination of patient's cirrhosis, chronic kidney disease, and diastolic heart failure. Continue current cardiac medications including dual antiplatelet therapy, given his very recent stent. Continue Xarelto for CVA prophylaxis. Xarelto can be held if any procedures are planned. Given finding of cirrhosis on CT, consider GI evaluation. Thank you for this consult. We will continue to follow. Zenaida Randolph MD ABS/MODL /[id number]
--- NOTE | 2019-01-07 15:32 | NUR ---
Gary from Dr. Jose to increase Bumex drip to 0.5 mg/hr.
--- NOTE | 2019-01-07 16:21 | NUR ---
Nutrition Screen Note RD Recommendation for Physician: -Continue current diet as ordered -RD provided diet education on 01/07. Pt continues to follow up with outpatient RD for further monitoring. Plan of Care: RD following, monitoring for tolerance and adequacy, diet education Nutrition reason for involvement: Diagnosis CHF Primary Diagnose(s): 1. Volume overload. 2. Jvwxn-dg-yshjjbq diastolic heart failure. 3. Evidence of cirrhosis on CT imaging. PMH: CKD III, CAD, Afib, CHF, chronic venous insufficiency, HTN, dyslipidemia, COPD, DM, gout, glaucoma Ht: 69in Wt: 247.13lb BMI: 36.5kg/m2 IBW: 160lb RD Assessment: (01/07) Chart reviewed. Labs and meds reviewed. 73yo M, who was admitted for LE swelling and SOB. Visited pt in the room. Pt reported good appetite. No GI complains noted. Pt denied any chewing or swallowing difficulty. 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 provided diet education. Will continue to monitor and follow. Current Diet: ADA/ renal diet w/ 1.2 L fluids restriction Malnutrition Evaluation (01/07) The patient does not meet criteria for a specified degree of malnutrition at this time. Will re-evaluate at follow-up as appropriate. Diet Education Needs Assessment: Diet education indicated, pt and were agreeable with plan. Learner(s): pt and Time spent: 30mins Barriers: Nobody cooks at home. works at night. Eating TV dinners for most meals. Cultural/Language Modifications: No cultural/language modifications noted. Pt and speak [place]. Readiness: Acceptance Method: Explanation and handouts Topics: Low sodium diet, fluid restriction, options for meal delivery services, crock-pot recipes Understanding/Compliance: Expect good understanding from pt. Will benefit from reinforcement. All questions have been answered. Follow with outpatient RD. Nutrition Care Level: low Signed: Kalli Winchester, MS, RD, LD
--- NOTE | 2019-01-07 17:51 | Consultation ---
DATE OF CONSULTATION: 01/07/2019 Patient located at [place], [place]. This is a patient of Dr. Short. HISTORY OF PRESENT ILLNESS: This is a 73-year-old gentleman, who has been seeing Dr. Mcclelland as an outpatient in the clinic and diagnosed with a UTI. His antibiotics were changed to Rocephin. The plan was to continue with Rocephin until 01/14/2019. The patient developed general edema; therefore, patient was advised to come to the hospital, now here admitted under the service of Dr. Short and Infectious Disease consulted. The patient seen and evaluated. PAST MEDICAL HISTORY: CHF with ejection fraction of 64% on the left ventricle, history of atrial fibrillation, chronic kidney disease, hypertension, asthma/COPD, hypothyroidism, diabetes, BPH, sleep apnea, obstructive type, severe periodic limb movement and restless legs during sleep, possibility of early Parkinson's. ALLERGIES: NO KNOWN ALLERGIES. LABORATORY STUDIES: White blood cells 6.93, hemoglobin 14.6, platelet 197. Sodium 134, potassium 4.4, creatinine 1.28. Blood cultures negative 24 hours. Chest x-ray shows focal airspace opacity in the left lung base with a platelike atelectasis with concern for pneumonia. Had a CT of the chest, which showed no pulmonary embolism. Severe emphysema. Cirrhotic liver morphology with moderate splenomegaly. Has a renal cyst. The abdominal ultrasound done showed no sonographic evidence of acute abdominal pathology. Has hepatomegaly with steatosis, borderline splenomegaly. No hydronephrosis or other renal cysts. REVIEW OF SYSTEMS: in general. PHYSICAL EXAMINATION: GENERAL: Alert, oriented, in bed. VITAL SIGNS: Temperature 96.3, pulse is 80, respirations 18, blood pressure 126/71. CV: S1 and S2. CHEST: Equal expansion. Decreased breath sounds. No acute distress. ABDOMEN: Soft, nontender, obese. Bowel sounds positive. HEENT: Moist. No pallor. No JVD. EXTREMITIES: General edema of all extremities with some erythematous and bullous formation of the bilateral lower extremities, mostly anteriorly to the tib-fib area. ASSESSMENT AND PLAN: This is a pleasant 73-year-old gentleman, who gets IV antibiotics through the office of Dr. Suhas Mcclelland for UTI on Rocephin with general edema, possibility of cellulitis of the lower extremities, possibility of pneumonia that was picked up on a chest x-ray on admission. The patient was placed on Zithromax, also on Rocephin from Dr. Mcclelland's office. The plan was originally to give Rocephin until January 14. The patient has a Bumex IV, "producing and voiding a lot." The patient advised to elevate legs. Case discussed with Dr. Mcclelland in details, further management of this patient based on daily final lab result, physical examination. Please refer to chart for more information. Again, this was discussed with Dr. Mcclelland in details. Dictated by Ger Mathis) DAVID Thompson Suhas Mcclelland MD /MODL /[id number]
--- NOTE | 2019-01-07 19:03 | NUR ---
RECEIVED PATIENT AAOX3, STABLE CONDITION. NO NEEDS VOICED. BED LOCKED AND IN LOWEST POSITION, CALL LIGHT WITHIN EASY REACH.
--- NOTE | 2019-01-07 21:00 | NUR ---
PATIENT REFUSED 0000 AND 0400 VITAL SIGNS
[2019-01-07] MEDS: PANTOPRAZOLE SOD 40 MG TABEC PO SCH (21:32)
[2019-01-07] MEDS: PRAMIPEXOLE DIHYDROCHLORIDE 0.25 MG TAB PO SCH (21:32)
[2019-01-07] MEDS: RIVAROXABAN 15 MG TABLET PO SCH (21:33)
[2019-01-07] MEDS: ROPINIROLE HCL 0.25 MG TAB PO SCH (21:33)
[2019-01-07] MEDS: SERTRALINE HCL 50 MG TAB PO SCH (21:33)
[2019-01-07] MEDS: CEFTRIAXONE SOD 1 GM/NS 50 ML 50 ML IV SCH (23:42)
[2019-01-08] VITALS (7 sets, daily range): BP systolic 127–145; BP diastolic 65–84
--- NOTE | 2019-01-08 02:38 | Progress Note ---
DATE: 01/07/2019 Pulmonary Medicine Progress Note. SUBJECTIVE: Mr. Sharma was seen and examined at bedside. He continues with lot of swelling to the legs. He was initiated on Bumex mg/hour, 35% Venti mask. He ate. He had bowel movements. He said his leg edema is going down. REVIEW OF SYSTEMS: No headaches, no bleeding. OBJECTIVE: VITAL SIGNS: Afebrile. Vital signs noted per the chart record. GENERAL: In no acute distress. Alert and calm. HEENT: Normocephalic, atraumatic. NECK: Supple. Throat midline. LUNGS: Bilateral air entry, rare wheezes. CARDIOVASCULAR: S1, S2. No murmurs, rubs, or gallops. ABDOMEN: Soft, nontender. EXTREMITIES: No clubbing, no cyanosis. There is 2 to 3+ edema. INTEGUMENT: No rash. There are just the venous stasis changes in the legs. LABORATORY DATA: 22 BUN, 1.3 creatinine, 36 bicarbonate, 6.9 white count, 49 hematocrit. ASSESSMENT AND PLAN: 1. Chronic obstructive pulmonary disease with exacerbation. 2. Fluid overload. 3. . 4. Chronic kidney disease. 5. Intermittent asthma. 6. Mild obstructive sleep apnea. 7. Severe periodic limb movements of sleep. 8. History of atrial fibrillation. Continue diuretic drip with Bumex. Oxygen per protocol and wean as tolerated. Continue to mobilize him as tolerated. Continue with the ipratropium nasal spray and other medicines for congestion. MD BREANNA Paulino/MODL /[id number]
[2019-01-08 04:05] LABS: BASOPHILS % 0.1 % (0.0-1.0); EOSINOPHILS # (AUTO) 0.2 (0.0-0.4); EOSINOPHILS % 2.2 % (0.0-6.0); HEMATOCRIT 50.9 % (38.2-49.6); HEMOGLOBIN 15.2 g/dL (14.0-18.0); LYMPHOCYTES # (AUTO) 0.8 (1.0-3.2); LYMPHOCYTES % 9.9 % (18.0-39.1); MEAN CORPUSCULAR HEMOGLOBIN 27.1 pg (28-32); MEAN CORPUSCULAR HGB CONC 29.9 g/dL (31-35); MEAN CORPUSCULAR VOLUME 90.7 fL (81-99); MONOCYTES # (AUTO) 0.3 (0.2-0.8); MONOCYTES % 3.3 % (4.4-11.3); NEUTROPHILS # (AUTO) 6.6 (2.1-6.9); NEUTROPHILS % 84.2 % (38.7-80.0); PLATELET COUNT 205 x10e3/uL (140-360); RED BLOOD COUNT 5.61 x10e6/uL (4.3-5.7); RED CELL DISTRIBUTION WIDTH 17.5 % (11.7-14.4)
[2019-01-08 04:23] LABS: ANION GAP 12.7 mmol/L (8-16); CALCIUM 8.6 mg/dL (8.4-10.2); CREATININE, SERUM 1.38 mg/dL (0.72-1.25); MAGNESIUM 2.4 MG/DL (1.3-2.1); POTASSIUM 4.7 mmol/L (3.5-5.1)
[2019-01-08 04:37] LABS: LYMPHOCYTES % (MANUAL) 6 % (19-48); MONOCYTES % (MANUAL) 3 % (3.4-9.0); NEUTROPHILS % (MANUAL) 91 % (40-74); PLATELET ESTIMATE ADEQUATE; PLATELET MORPHOLOGY COMMENT NORMAL; RBC MORPHOLOGY COMMENT NORMAL
[2019-01-08] MEDS: IPRATROPIUM BROMIDE 0.06% 42 MCG NASPR NS SCH ×2 (06:00→20:47)
--- NOTE | 2019-01-08 06:44 | NUR ---
BUMEX DRIP COMPLETE. NOTIFIED PHARMACY THAT NEW BUMEX MIX IS NEEDED.
[2019-01-08] MEDS: LIOTHYRONINE SODIUM 5 MCG TAB PO SCH (06:48)
[2019-01-08] MEDS: LEVOTHYROXINE SODIUM 50 MCG TAB PO SCH (06:48)
[2019-01-08] MEDS: METHYLPREDNISOLONE SOD SUCC 40 MG/ML VIAL 1ML IV SCH ×3 (06:48→21:50)
[2019-01-08] MEDS: INSULIN LISPRO 100 UNIT/1 ML 3ML VIAL SQ SCH ×4 (08:30→21:50)
[2019-01-08] MEDS: METOPROLOL TARTRATE 25 MG TAB PO SCH ×2 (09:00→21:50)
[2019-01-08] MEDS: POTASSIUM CHLORIDE 20 MEQ TAB CR PO SCH ×2 (09:00→21:50)
[2019-01-08] MEDS: GUAIFENESIN 600MG/DEXTROMETHORPHAN 30MG TABSR PO SCH ×2 (10:00→21:50)
[2019-01-08] MEDS: BACLOFEN 10 MG TAB PO SCH ×3 (10:00→21:50)
[2019-01-08] MEDS: SPIRONOLACTONE 25 MG TAB PO SCH ×2 (10:00→21:50)
[2019-01-08] MEDS: CLOPIDOGREL BISULFATE 75 MG TAB PO SCH (10:00)
[2019-01-08] MEDS: ASPIRIN 81 MG CHEW TAB PO SCH (10:00)
[2019-01-08] MEDS: SODIUM CHLORIDE 0.9% IV SCH (10:02)
[2019-01-08] MEDS: BUMETANIDE IV SCH (10:02)
[2019-01-08] MEDS ORDERED: SODIUM CHLORIDE 0.9% IV SCH (14:00)
[2019-01-08] MEDS ORDERED: BUMETANIDE IV SCH (14:00)
[2019-01-08] MEDS: ALBUTEROL/IPRATROPIUM 3 ML NEB NEB SCH ×3 (14:23→23:22)
--- NOTE | 2019-01-08 17:01 | Progress Note ---
DATE: 01/08/2019 Cardiology Progress Note SUBJECTIVE: The patient denies chest pain. He reports his shortness of breath and lower extremity edema are improved. OBJECTIVE: VITAL SIGNS: Temperature 95.9 degrees, pulse 83, respiratory rate 22, blood pressure 127/65, and oxygen saturation 98% on 4 L nasal cannula. GENERAL: Elderly man, in no acute distress, awake and alert. LUNGS: Clear to auscultation bilaterally. No wheezes or crackles. CARDIOVASCULAR: Normal rate, regular rhythm. No murmur. Normal S1, S2. ABDOMEN: Soft, nontender. EXTREMITIES: 2+ pitting edema bilaterally. CARDIAC MEDICATIONS: Bumex drip, Plavix 75 mg p.o. daily, aspirin 81 mg p.o. daily, spironolactone 50 mg p.o. b.i.d., metoprolol tartrate 25 mg p.o. q.12 hours, levothyroxine 100 mcg p.o. daily, liothyronine 5 mcg p.o. daily, rivaroxaban 15 mg p.o. q.h.s. LABORATORY DATA: WBC 7.7, hemoglobin 15.2, hematocrit 50.9, platelets 205. Sodium 140, potassium 4.7, chloride 94, CO2 of 38, BUN 31, creatinine 1.38. BNP 445. TELEMETRY: Atrial fibrillation. IMPRESSION: 1. Volume overload. 2. Acute on chronic diastolic heart failure. 3. Evidence of cirrhosis on CT imaging. 4. Chronic kidney disease. 5. Coronary artery disease, status post recent stent. 6. Atrial fibrillation, on Xarelto. 7. Diabetes mellitus. 8. Hypertension. 9. Chronic obstructive pulmonary disease. RECOMMENDATIONS: The patient's symptoms are improving. Continue Bumex drip for diuresis. Strict I's and O's and daily weights. Continue current cardiac medications including dual antiplatelet therapy given his very recent stent. Continue Xarelto for CVA prophylaxis. If any procedures are planned, Xarelto can be held for two days prior to procedure. Consider GI evaluation given evidence of cirrhosis on CT imaging. Thank you for this consult. We will continue to follow. Zenaida Randolph MD ABS/MODL /[id number]
[2019-01-08] MEDS: RIVAROXABAN 15 MG TABLET PO SCH (21:50)
[2019-01-08] MEDS: SERTRALINE HCL 50 MG TAB PO SCH (21:50)
[2019-01-08] MEDS: PRAMIPEXOLE DIHYDROCHLORIDE 0.25 MG TAB PO SCH (21:50)
[2019-01-08] MEDS: ROPINIROLE HCL 0.25 MG TAB PO SCH (21:50)
[2019-01-08] MEDS: PANTOPRAZOLE SOD 40 MG TABEC PO SCH (21:50)
[2019-01-08] MEDS: CEFTRIAXONE SOD 1 GM/NS 50 ML 50 ML IV SCH (22:31)
[2019-01-08] MEDS ORDERED: AZITHROMYCIN 500MG/NS 250 ML 250 ML IV SCH (23:00)
[2019-01-09] VITALS: BP 102/58
--- NOTE | 2019-01-09 01:33 | Progress Note ---
DATE: 01/08/2019 Pulmonary Medicine Progress Note. SUBJECTIVE: Mr. Sharma was seen and examined at bedside. He continues to have slow progress. He remains on Lasix drip at this time. He is . Oxygen 7 L/minute. He is having bowel movement. He is eating well. REVIEW OF SYSTEMS: No headache. No bleeding. OBJECTIVE: VITAL SIGNS: Afebrile, vital signs noted per the chart record. GENERAL: In no acute distress, alert and calm. HEENT: Normocephalic and atraumatic. NECK: Supple. Throat midline. LUNGS: Bilaterally moderate air entry. No wheezes, which has improved. CARDIOVASCULAR: S1 and S2. No murmurs, rubs, or gallops. ABDOMEN: Soft and nontender. EXTREMITIES: No clubbing, no cyanosis, there is still 2+ to 3+ edema. INTEGUMENT: No rash. No purpura. LABS: creatinine. 4.7 potassium. 51 hematocrit and 7.8 white count. IMPRESSION: 1. Volume overload. 2. [id number] diastolic heart failure. 3. Chronic kidney disease. 4. Possible cirrhosis per CT. 5. Intermittent asthma. 6. Mild obstructive sleep apnea. 7. Severe periodic limb movements with sleep. 8. History of atrial fibrillation. 9. Hypertension, diabetes, hypothyroidism, and benign prostatic hyperplasia. PLAN: Continue the diuretic drip at this time. Remains on rivaroxaban. Recheck electrolytes in the morning. Wean down the steroids for the breathing. Bronchodilators and medicines for his nasal resistance will continue to be given. MD BREANNA Paulino/MODL /[id number]
[2019-01-09] MEDS: ALBUTEROL/IPRATROPIUM 3 ML NEB NEB SCH ×3 (02:57→10:55)
[2019-01-09 04:00] VITALS: BP 136/87
[2019-01-09 04:04] LABS: BASOPHILS % 0.1 % (0.0-1.0); HEMATOCRIT 54.7 % (38.2-49.6); HEMOGLOBIN 16.4 g/dL (14.0-18.0); LYMPHOCYTES # (AUTO) 0.6 (1.0-3.2); MONOCYTES # (AUTO) 0.4 (0.2-0.8); MONOCYTES % 4.6 % (4.4-11.3); NEUTROPHILS # (AUTO) 7.4 (2.1-6.9); NEUTROPHILS % 87.2 % (38.7-80.0); PLATELET COUNT 220 x10e3/uL (140-360); RED BLOOD COUNT 6.08 x10e6/uL (4.3-5.7); RED CELL DISTRIBUTION WIDTH 17.9 % (11.7-14.4)
[2019-01-09 04:20] LABS: ANION GAP 13.4 mmol/L (8-16); CALCIUM 8.8 mg/dL (8.4-10.2); CREATININE, SERUM 1.41 mg/dL (0.72-1.25); MAGNESIUM 2.5 MG/DL (1.3-2.1); POTASSIUM 4.4 mmol/L (3.5-5.1)
[2019-01-09] MEDS: IPRATROPIUM BROMIDE 0.06% 42 MCG NASPR NS SCH (06:00)
[2019-01-09] MEDS: LIOTHYRONINE SODIUM 5 MCG TAB PO SCH (06:43)
[2019-01-09] MEDS: LEVOTHYROXINE SODIUM 50 MCG TAB PO SCH (06:43)
[2019-01-09] MEDS: ASPIRIN 81 MG CHEW TAB PO SCH (09:00)
[2019-01-09] MEDS ORDERED: PREDNISONE 20 MG TAB PO SCH (09:00)
[2019-01-09] MEDS: METOPROLOL TARTRATE 25 MG TAB PO SCH (09:00)
[2019-01-09] MEDS: INSULIN LISPRO 100 UNIT/1 ML 3ML VIAL SQ SCH ×2 (09:00→12:21)
[2019-01-09] MEDS ORDERED: POTASSIUM CHLORIDE 20 MEQ TAB CR PO SCH (09:00)
[2019-01-09] MEDS: SPIRONOLACTONE 25 MG TAB PO SCH (09:00)
[2019-01-09] MEDS ORDERED: FLUTICASONE PROPIONATE NASAL SPRAY NS SCH (09:00)
[2019-01-09 09:01] VITALS: BP 136/91
[2019-01-09] MEDS: BACLOFEN 10 MG TAB PO SCH (09:01)
[2019-01-09] MEDS: GUAIFENESIN 600MG/DEXTROMETHORPHAN 30MG TABSR PO SCH (09:01)
[2019-01-09] MEDS: CLOPIDOGREL BISULFATE 75 MG TAB PO SCH (09:01)
[2019-01-09 10:02] VITALS: BP 136/91
--- NOTE | 2019-01-09 10:26 | NUR ---
PER DR. KRISHNAN PT CAN D/C HOME FROM [facility]. PT TO FOLLOW UP IN 1-2 WEEKS AND NEEDS RX FOR BUMEX 2MG BID. MADELAINE PASCUAL WITH DR. MEDINA NOTIFIED.
[2019-01-09] MEDS ORDERED: BUMEX PO (10:38)
[2019-01-09] MEDS ORDERED: LIDOCAINE HCL 1% LOCAL INJ 20 ML VIAL ONE (11:00)
--- NOTE | 2019-01-09 11:40 | NUR ---
PT TO RADIOLOGY AT THIS TIME VIA / FOR CATHETER REMOVAL.
--- NOTE | 2019-01-09 12:11 | NUR ---
PT RETURNED FROM IR UNABLE TO D/C TUNNELED PICC LINE DUE TO PT BEING ON ANTICOAGULANTS. SPOKE TO DR. HERNANDEZ STATES HAVE PT D/C WITH PICC LINE AND FOLLOW UP IN HIS OFFICE NEXT WEEK. HE WILL DECIDE HOW AND WHEN TO D/C PICC BECAUSE PT CANNOT BE OFF OF ANTICOAGULANTS DUE TO RECENT STENT PLACEMENT. NOTIFIED MADELAINE PASCUAL WITH DR. MEDINA. STATES OK TO D/C HOME WITH PICC.
[2019-01-09 12:35] VITALS: BP 133/82
--- NOTE | 2019-01-09 12:45 | Progress Note ---
DATE: Cardiology Progress Note SUBJECTIVE: The patient states that his shortness of breath and also bilateral lower extremity edema is much improved. He is feeling better. Denies any chest pain. OBJECTIVE: VITAL SIGNS: Temperature 96.9, pulse 89, respiratory rate 20, blood pressure 136/91, and oxygen saturation 98% on 4 L nasal cannula. GENERAL: Alert and oriented x3, resting comfortably in bed, does not appear to be in any acute distress. NECK: Supple. No JVD noted. CARDIOVASCULAR: Irregular rate and rhythm. Normal S1, S2. A 2/6 systolic murmur present. LUNGS: Diminished breath sounds in anterior lower lobes, otherwise clear to auscultation. No wheezing, no rhonchi or crackles. ABDOMEN: Rounded, soft, nontender. LOWER EXTREMITY: 3+ pitting edema. CARDIOVASCULAR MEDICATIONS: Prednisone 20 mg p.o. daily, Plavix 75 mg p.o. daily, spironolactone 50 mg p.o. b.i.d., metoprolol tartrate 25 mg q.12 hours, aspirin 81 mg p.o. daily, Xarelto 15 mg p.o. at bedtime, and Bumex IV drip. LABORATORY DATA: WBC 8.53, hemoglobin 16.4, hematocrit 57.4, platelets 220. Sodium 140, potassium 4.4, BUN 33, creatinine 1.41, glucose 154, magnesium 2.5. BNP 381. TELEMETRY: Rate controlled atrial fibrillation. IMPRESSION: 1. Volume overload. 2. Acute on chronic diastolic heart failure. 3. Evidence of cirrhosis on CT imaging. 4. Chronic kidney disease. 5. Coronary artery disease status post recent stenting. 6. Atrial fibrillation. 7. Diabetes mellitus. 8. Hypertension. 9. Chronic obstructive pulmonary disease. RECOMMENDATION: Continue diuresis with Bumex. The patient responding well. Monitor I's and O's strictly including daily weights. Continue the above-listed cardiac medications including dual antiplatelet therapy. Monitor any evidence of bleeding. We will continue to follow very closely. Dictated by Pinky Golden NP MD MARIIA LopezV/STEVE /[id number]
--- NOTE | 2019-01-09 13:28 | NUR ---
DISCHARGE INSTRUCTIONS AND PRESCRIPTION FOR BUMEX GIVEN. PT VERBALIZED UNDERSTANDING. IV D/C AND PRESSURE DRESSING APPLIED. LEFT FOREARM SKIN TEAR NOTED. CLEANED WITH NS AND APPLIED TEGADERM. DRESSING TO RIGHT UPPER TUNNELED PICC CHANGED. PT AWAITING RIDE HOME. SPOUSE TO BRING HOME O2. Addendum: 01/09/19 at 1330 by Elvira Mckeon RN PICC TO RIGHT UPPER CHEST
--- NOTE | 2019-01-10 02:18 | Discharge Summary ---
ADMISSION DIAGNOSES: Acute exacerbation of chronic obstructive pulmonary disease, [id number] systolic and diastolic congestive heart failure, hypertension complicated by chronic kidney disease, 3, coronary artery disease, congestive heart failure, type 2 diabetes complicated by chronic kidney disease, 3, hypothyroidism, chronic atrial fibrillation with history of myocardial infarction and coronary artery disease and chronic kidney disease, 3. DISCHARGE DIAGNOSES: Acute exacerbation of chronic obstructive pulmonary disease, [id number] systolic and diastolic congestive heart failure, hypertension complicated by chronic kidney disease, 3, coronary artery disease, congestive heart failure, type 2 diabetes complicated by chronic kidney disease, 3, hypothyroidism, chronic atrial fibrillation with history of myocardial infarction and coronary artery disease and chronic kidney disease, 3. HISTORY: The patient has a history of CAD, atrial fibrillation, type 2 diabetes, hypertension, COPD, CKD, 3, combined systolic and diastolic CHF, ankylosing spondylitis, pneumonia, hypothyroidism, gout, osteoarthritis, anxiety, obstructive sleep apnea, glaucoma, [place], asthma, cataracts, neuropathy, BPH, and RLS. SURGICAL HISTORY: PCI, neck fusion x2, bilateral cataract surgeries, UroLift prostate laser surgery, and pain pump implantation. FAMILY HISTORY: The patient's brother has diabetes. The patient's dad had a stroke. SOCIAL HISTORY: Noncontributory. The patient admits to quitting tobacco use 8 years ago. HOSPITAL COURSE: A 73-year-old male, complains of dyspnea, bilateral lower extremity swelling x3 weeks with 8-pound weight gain over 1 week. He denies cough, wheezing, fever, sputum production, or palpitations. 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 Symptoms are worsened with exertion and improves with rest. He uses 4 L/min oxygen at home. On admission, patient was started on Zithromax, Rocephin, nebulizers, Mucinex, IV steroids, and Lasix as well as spironolactone. He was then placed on a Bumex drip and his Lasix was discontinued. Echo showed an EF of 60%. Bilateral lower extremity venous Doppler is negative. EKG showed atrial fibrillation with a rate of 86. Chest x-ray showed focal airspace opacity in the left lung with platelike atelectasis. CT of the chest showed no pulmonary emboli, severe emphysema, cirrhotic liver with moderate splenomegaly, and incompletely characterized renal cystic lesion. He then had an ultrasound of the abdomen that showed no sonographic evidence of acute abdominal pathology, hepatomegaly with steatosis, borderline splenomegaly. No hydronephrosis. Bilateral renal cysts, minimally larger than on previous exam. Blood cultures were negative. Urine culture was negative. The patient was being treated outpatient for UTI with IV antibiotics and had a right chest central line placed prior to admission. He was being treated outpatient with Dr. Mcclelland. Upon discharge, Dr. Mcclelland approved the discontinuation of the central line. Per IR, they will not discontinue it unless the patient is off his anticoagulants for a couple of weeks. After discussing that with Cardiology, they do not feel safe to hold his anticoagulation due to a recent stent placement. So, the patient will be discharged home with a central line that he was admitted with and will follow up with Cardiology next week to discuss a safe time to discontinue the central line and hold anticoagulation. The patient will be discharged home with Bumex 2 mg b.i.d. and his Lasix and potassium were discontinued per Nephrology's recommendation. He will resume all other home medicines. The patient is feeling much better and will not have any antibiotics at time of discharge per Dr. Mcclelland's recommendation. He will follow up with primary care in 1-2 weeks, Cardiology next week, and Dr. Mcclelland in 1-2 weeks. The patient understands discharge instructions and agrees to plan. Vital signs stable, patient afebrile. Dictated by Tamela Young NP MD MARKUS Ladd/MODL /[id number]
== END 2019-01-09 13:42 | disposition home or self-care (01) | DRG 291 ==
LOC: ER 13:10 → ERHOLD 22:50 → MED/SURG 22:52
PROVIDERS: ADMIT Internal Medicine; ATTEND Internal Medicine
DX: I13.0 Hypertensive heart and chronic kidney disease with heart failure and stage 1 through stage 4 chronic kidney disease, or unspecified chronic kidney disease (principal); I50.43 Acute on chronic combined systolic (congestive) and diastolic (congestive) heart failure; J44.1 Chronic obstructive pulmonary disease with (acute) exacerbation; J45.20 Mild intermittent asthma, uncomplicated; I25.10 Atherosclerotic heart disease of native coronary artery without angina pectoris; M45.9 Ankylosing spondylitis of unspecified sites in spine; G47.33 Obstructive sleep apnea (adult) (pediatric); N18.3 Chronic kidney disease, stage 3 (moderate); E11.22 Type 2 diabetes mellitus with diabetic chronic kidney disease; E03.9 Hypothyroidism, unspecified; I48.2 Chronic atrial fibrillation; Z79.01 Long term (current) use of anticoagulants; I25.2 Old myocardial infarction; N40.0 Benign prostatic hyperplasia without lower urinary tract symptoms; E11.40 Type 2 diabetes mellitus with diabetic neuropathy, unspecified; H40.9 Unspecified glaucoma; M10.9 Gout, unspecified; G25.81 Restless legs syndrome; Z79.899 Other long term (current) drug therapy; R16.1 Splenomegaly, not elsewhere classified; N28.1 Cyst of kidney, acquired; K74.60 Unspecified cirrhosis of liver; F41.9 Anxiety disorder, unspecified; I87.2 Venous insufficiency (chronic) (peripheral); Z95.5 Presence of coronary angioplasty implant and graft; Z79.4 Long term (current) use of insulin; G20 Parkinson's disease
CPT/HCPCS: 36415; 71045; 71260; 76700; 80048; 80053; 81001; 82550; 82553; 82805; 82948; 83036; 83605; 83735; 83880; 84145; 84439; 84443; 84484; 85025; 85610; 85730; 87040; 87086; 93005; 93306; 93970; 94640; 96367; 96376; 99284; J0456; J0696; J1940; J2001; J2920; J7040; J7512; Q9967

== ENCOUNTER 2019-02-08 13:40 | Inpatient (IN) | payer BC, MEDICARE ==
[~2019-02-08] VITALS: Ht 175.3 cm; Wt 104.8 kg
[~2019-02-08 13:40] MED LIST changes: -ALBUTEROL0.63 MG/3 INH; +ALBUTEROL0.63 MG/3 NEB; +BUMEX PO
--- OUTSIDE RECORDS SUMMARY | 2019-02-08 13:44 | XMS REPORT | Continuity of Care Document ---
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 11/20/2017 [facility] M54.9 DORSALGIA, UNSPECIFIED G95.9 DISE Active 06/12/2016 [facility] 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, UNSPECIFIE Active 04/04/2016 [facility] DX: M54.4=LUMBAGO WITH SCIATICA, UNSPECI Active 03/26/2016 [facility] R53.1 - WEAKNESS Active 03/18/2016 [facility] Spinal stenosis, lumbar region without neurogenic claudication 03/12/2018 [facility] Spinal stenosis, cervical region 03/12/2018 [facility] Spinal stenosis, cervicothoracic region 03/12/2018 [facility] Afib Resolved Problem 12/30/2018 [facility] Arthritis Resolved Problem 12/30/2018 [facility] COPD Resolved Problem 12/30/2018 [facility] Diabetes Resolved Problem 12/30/2018 [facility] Hypertension Resolved Problem 12/30/2018 [facility] Neuropathy Resolved Problem 12/30/2018 [facility] Obesity Active Problem 12/30/2018 [facility] Seborrheic dermatitis Resolved Problem 12/30/2018 [facility] Arthropathy Resolved Problem 12/30/2018 [facility] Atrial fibrillation and flutter Resolved Problem 12/30/2018 [facility] Backache Resolved Problem 12/30/2018 [facility] Benign prostatic hyperplasia with lower urinary tract symptoms Resolved Problem 12/30/2018 [facility] Bronchitis Resolved Problem 12/30/2018 [facility] Cataract Resolved Problem 12/30/2018 [facility] Chronic kidney disease (<span ID="[id number]</span>) Resolved Problem 12/30/2018 [facility] Diabetes mellitus type 1 Resolved Problem 12/30/2018 [facility] Glaucoma Resolved Problem 12/30/2018 [facility] Gout Resolved Problem 12/30/2018 [facility] Impotence, organic Resolved Problem 12/30/2018 [facility] Urinary frequency Resolved Problem 12/30/2018 [facility] Mumps Resolved Problem 12/30/2018 [facility] Nocturia Resolved Problem 12/30/2018 [facility] Peripheral vascular disease Resolved Problem 12/30/2018 [facility] Sleep apnea Resolved Problem 12/30/2018 [facility] Urgency of urination Resolved Problem 12/30/2018 [facility] Other specified urinary incontinence Resolved Problem 12/30/2018 [facility] UTI (<span ID="[id number]">Confirmed</span>) Resolved Problem 12/30/2018 [facility] Vertigo Resolved Problem 12/30/2018 [facility] Afib Active Problem 01/09/2019 [facility] CHF Active Problem 01/09/2019 [facility] COPD Active Problem 01/09/2019 [facility] COPD exacerbation Active Problem 01/09/2019 [facility] Chronic renal insufficiency Active Problem 01/09/2019 [facility] Cirrhosis Active Problem 01/09/2019 [facility] Hemoptysis Active Problem 01/09/2019 [facility] Pedal edema Active Problem 01/09/2019 [facility] Pneumonia Active Problem 01/09/2019 [facility] DORSALGIA, UNSPECIFIED Active [facility] DISEASE OF SPINAL CORD, UNSPECIFIED Active [facility] Medications Medication Details Route Status Patient Instructions Ordering Provider Order Date Source [place] Twice A Day Active [place] 01/09/2019 [facility] Potassium Chloride (K-Dur) 20 Meq Tab.er.prt, 20 Meq Oral Every 12 Hours Active 01/09/2019 [facility] Prednisone 10 Mg Tab, 30 Mg Oral Daily Active 12/30/2018 [facility] Prednisone 20 Mg Tab, 20 Mg Oral Daily Active 12/30/2018 [facility] Prednisone 10 Mg Tab, 10 Mg Oral Daily Active 12/30/2018 [facility] Albuterol Sulfate (Proair Hfa Inhaler*) 8.5 Gm Inh, 3 Inh Active 12/11/2018 [facility] Alclometasone Dipropionate 15 Gm Cream..g., 1 Applic Topically Daily Active 12/11/2018 [facility] Albuterol Sulfate (Proair Hfa Inhaler*) 8.5 Gm Inh, 2 Inh Inhalation Daily Active 12/07/2018 [facility] Clobetasol Propionate 1 Ea/15 Gm Cr, 1 Applic Topically Daily Active 12/07/2018 [facility] Mirabegron (Myrbetriq) 50 Mg Tab.er.24h, 50 Mg Oral Every Morning Active 12/07/2018 [facility] Rapatha Injection , 140 Mg Intramusc Use As Directed Active 12/07/2018 [facility] Spironolactone (Aldactone) 50 Mg Tablet, 50 Mg Oral As Needed Active 12/07/2018 [facility] Folic Acid 1 Mg Tablet, 1 Mg Oral Twice A Day Active 11/05/2018 [facility] Warfarin Sodium 3 Mg Tablet, 3 Mg Oral Daily Active 11/05/2018 [facility] Azithromycin (Zithromax) 500 Mg Tablet, 500 Mg Oral Daily Active [place] 09/16/2018 [facility] Sulfamethoxazole/Trimethoprim (Bactrim Ds Tablet) 1 Each Tablet, 1 Each Oral Twice A Day Active [place] 09/16/2018 [facility] Albuterol Sulf (Proventil 0.083% Neb) 3 Ml Nebu, 3 Ml Inhalation Every 12 Hours Active 09/13/2018 [facility] Albuterol Sulfate (Proair Hfa Inhaler*) 8.5 Gm Inh, 1 Inh Inhalation Three Times A Day Active 09/13/2018 [facility] Albuterol Sulfate (Proair Hfa Inhaler*) 8.5 Gm Inh, Active 09/13/2018 [facility] Cyanocobalamin (Vitamin B-12) (Vitamin B-12) 2,000 Mcg Tablet.er, 2000 Mcg Weekly Active 09/13/2018 [facility] Duloxetine Hcl (Cymbalta) 30 Mg Capsule., 60 Mg Oral Bedtime Active 09/13/2018 [facility] Fe Fumarate/Vit C/B12-If/Fa (Ferocon Capsule) 1 Each Capsule, 1 Cap Oral Daily Active 09/13/2018 [facility] Formoterol Fumarate (Perforomist) 20 Mcg/2 Ml Vial.neb, 20 Mcg Inhalation Daily Active 09/13/2018 [facility] Liraglutide (Victoza 3-Asad) 0.6 Mg/0.1 Ml Pen.injctr, 1.8 Mg Injection Every Morning Active 09/13/2018 [facility] [place]asper-3/Dha/Epa/Fish Oil (Fish Oil [place]-3 Softgel) 1 Each Capsule., 1 Tab Oral Twice A Day Active 09/13/2018 [facility] Repaglinide (Prandin) 1 Mg Tab, 0.5 Tab Oral As Needed Active 09/13/2018 [facility] Tamsulosin Hcl 0.4 Mg Cap.er.24h, 0.8 Mg Oral Every 12 Hours Active 09/13/2018 [facility] Testoterone , 1 Ml Active 09/13/2018 [facility] Metoprolol Tartrate (Lopressor) 25 Mg Tab Every 12 Hours Active [place] 06/11/2017 [facility] Azithromycin (Z-Asad) 250 Mg Tablet, 500 Mg Oral Daily Active [place] 06/11/2017 [facility] Docusate Sodium (Colace) 100 Mg Capsule, 100 Mg Oral Three Times A Day Active [place] 06/11/2017 [facility] Furosemide 40 Mg Tablet, 80 Mg Oral Bid@06,18 Active [place] 06/11/2017 [facility] Metoprolol Tartrate 25 Mg Tablet, 12.5 Mg Oral Twice A Day Active 06/11/2017 [facility] Polyethylene Glycol 3350 (Miralax) 17 Gm Powd.pack, 17 Gm Oral Twice A Day Active [place] 06/11/2017 [facility] Prednisone 20 Mg Tab, 40 Mg Oral Daily Active [place] 06/11/2017 [facility] Warfarin Sodium (Coumadin) 5 Mg Tablet, 5 Mg Oral Daily At 1700 Active [place] 06/11/2017 [facility] Warfarin Sodium (Coumadin) 5 Mg Tablet, 3 Mg Oral Today At 5:00PM Active 06/11/2017 [facility] Furosemide (Lasix) 40 Mg Tablet, 2 Mg Oral Twice A Day Active 06/04/2017 [facility] Furosemide (Lasix) 40 Mg Tablet, 80 Mg Oral Twice A Day Active 06/04/2017 [facility] Ibuprofen 400 Mg Tablet, 600 Mg Oral Every 6 Hours as needed for Pain Active 06/04/2017 [facility] Mucas , 400 Mcg Oral Twice A Day Active 06/04/2017 [facility] Servent Disk , 50 Mcg Inhalation Twice A Day Active 06/04/2017 [facility] Warfarin Sodium (Coumadin) 5 Mg Tablet, 3 Mg Oral Today At 5:00PM Active 06/04/2017 [facility] Warfarin Sodium (Coumadin) 2 Mg Tablet, 2 Mg Oral Daily Active 06/04/2017 [facility] Warfarin Sodium (Coumadin) 2.5 Mg Tablet, 2.5 Mg Oral Daily Active 06/04/2017 [facility] Warfarin Sodium (Coumadin) 5 Mg Tablet, 5 Mg Oral Today At 5:00PM Active 06/04/2017 [facility] Aspirin 325 Mg Tablet, 81 Mg Oral Daily Active 05/07/2017 [facility] Bupivacaine Hcl (Marcaine) 2.5 Mg/1 Ml Vial, 1.143 Mg Daily Active 05/07/2017 [facility] Carisoprodol 350 Mg Tablet, 350 Mg Oral as needed Active 05/07/2017 [facility] Fenofibric Acid (Choline) (Trilipix) 135 Mg Capsule., 135 Mg Oral Daily Active 05/07/2017 [facility] Hydrocodone Bit/Acetaminophen (Hydrocodone-Apap 10-325 Mg Tab) 1 Each Tablet, 1 Each Oral as needed Active 05/07/2017 [facility] Hydrocodone Bit/Acetaminophen (Hydrocodon-Acetaminophn 10-325) 1 Each Tablet, 10 Mg Oral As Needed Active 05/07/2017 [facility] Latanoprost 2.5 Ml Drops, 2.5 Ml Ophthalmic Daily Active 05/07/2017 [facility] Linagliptin (Tradjenta) 5 Mg Tablet, 5 Mg Oral Daily Active 05/07/2017 [facility] Morphine Pump , 12.7 Mg Daily Active 05/07/2017 [facility] Multivitamin (Multivitamins) 1 Each Tab.chew, Oral Daily Active 05/07/2017 [facility] Omeprazole 40 Mg Capsule., 40 Mg Oral Daily Active 05/07/2017 [facility] Polyethylene Glycol 3350 (Clearlax) 17 Gm Powd.pack, As Needed Active 05/07/2017 [facility] Testosterone (Testopel) 75 Mg Pellet.ea., 75 Mg Active 05/07/2017 [facility] Torsemide 20 Mg Tablet, 20 Mg Oral Twice A Day Active 05/07/2017 [facility] Zolpidem Tartrate (Ambien) 10 Mg Tablet, 10 Mg Oral Bedtime Active 05/07/2017 [facility] Axiron , 30 Mg Daily Active 09/01/2013 [facility] Caltrate +D , Oral Twice A Day Active 09/01/2013 [facility] Furosemide 40 Mg Tablet, 40 Mg Oral Daily Active 09/01/2013 [facility] Marcaine , Daily Active 09/01/2013 [facility] Morphine Pump , Daily Active 09/01/2013 [facility] Zolpidem Tartrate (Ambien Cr) 12.5 Mg Tab.mphase, 12.5 Mg Oral Daily Active 09/01/2013 [facility] Aclometasone 0.05% 1 Each Daily Active [facility] Albuterol Sulfate 0.63 Mg/3 Ml Vial.neb Twice A Day Active [facility] Albuterol Sulfate (Proair Hfa Inhaler*) 8.5 Gm Inh Daily Active PATIENT TAKES 3-5 PUFFS INHALATION [facility] Alprazolam 0.5 Mg Tab.rapdis As Needed Active [facility] Aspirin (Aspir 81) 81 Mg Tablet.dr Daily Active [facility] Baclofen 10 Mg Tablet Three Times A Day Active [facility] Budesonide 0.5 Mg/2 Ml Ampul.neb Twice A Day Active [facility] Carisoprodol (Soma) 350 Mg Tablet as needed for Pain Active [facility] Cholecalciferol (Vitamin D3) (Vitamin D3) 2,000 Unit Capsule Bedtime Active [facility] Clobetasol Propionate 1 Ea/15 Gm Cr Daily Active [facility] Clopidogrel Bisulfate (Clopidogrel) 75 Mg Tablet Daily Active [facility] Cosentyx Qmonth Active [facility] Dilaudid Pain Pump Use As Directed Active DILAUDID 6.225MG AND 0.9773MG MARCAINE DAILY DELIVERED BY PAIN PUMP [facility] Fe Fumarate/Vit C/B12-If/Fa (Ferocon Capsule) 1 Each Capsule Daily Active [facility] Folic Acid 1 Mg Tablet Twice A Day Active [facility] Guaifenesin (Mucus Relief) 400 Mg Tablet Twice A Day Active [facility] Hydromorphone Hcl 2 Mg Tablet As Needed as needed for Prn Active [facility] Latanoprost 2.5 Ml Drops Bedtime Active [facility] Levothyroxine Sodium 50 Mcg Tablet Daily Active [facility] Liothyronine Sodium 5 Mcg Tablet Every Morning Active [facility] Mirabegron (Myrbetriq) 50 Mg Tab.er.24h Daily Active [facility] Pantoprazole Sodium (Protonix) 40 Mg Tablet.dr Bedtime Active [facility] Pramipexole Di-Hcl (Pramipexole Dihydrochloride) 0.25 Mg Tablet Bedtime Active [facility] Psyllium Husk (Wal-Mucil) 0.52 Gm Capsule Daily Active [facility] Rapatha Injection Use As Directed Active PATIENT TAKES EVERY 2 WEEKS [facility] Rivaroxaban (Xarelto) 10 Mg Tablet Bedtime Active [facility] Ropinirole Hcl 0.25 Mg Tablet Bedtime Active [facility] Sertraline Hcl 50 Mg Tablet Bedtime Active [facility] Sodium Chloride For Inhalation (Hyper-Lamine) 4 Ml Vial.neb Daily as needed for Nasal Congestion Active [facility] Spironolact/Hydrochlorothiazid (Aldactazide 50-50 Tablet) 1 Each Tablet As Needed Active [facility] Testosterone Cypionate 200 Mg/1 Ml Vial Active every 2 weeks [facility] Vitamin B12 Use As Directed Active ONCE A WEEK [facility] Allergies, Adverse Reactions, Alerts Substance Category Reaction Severity Reaction type Status Date Reported Comments Source No Known Drug Allergies Unknown Allergy to Substance Active 06/04/2017 [facility] Immunizations Immunization Date Given Site Status Last Updated Comments Source Results Order Name Results Value Reference Range Date Interpretation Comments Source Capillary blood glucose measurement by glucometer (mass/volume) 151 70 - 120 01/09/2019 [facility] Blood leukocytes automated count (number/volume) 8.53 4.8 - 10.8 01/09/2019 [facility] Blood erythrocytes automated count (number/volume) 6.08 4.3 - 5.7 01/09/2019 [facility] Blood hemoglobin measurement (moles/volume) 16.4 14.0 - 18.0 01/09/2019 [facility] Automated blood hematocrit (volume fraction) 54.7 38.2 - 49.6 01/09/2019 [facility] Automated erythrocyte mean corpuscular volume 90.0 81 - 99 01/09/2019 [facility] Automated erythrocyte mean corpuscular hemoglobin (mass per erythrocyte) 27.0 28 - 32 01/09/2019 [facility] Automated erythrocyte mean corpuscular hemoglobin concentration measurement (mass/volume) 30.0 31 - 35 01/09/2019 [facility] RDW BldCo-Rto 17.9 11.7 - 14.4 01/09/2019 [facility] Automated blood platelet count (count/volume) 220 140 - 360 01/09/2019 [facility] Automated blood segmented neutrophil count as percentage of total leukocytes 87.2 38.7 - 80.0 01/09/2019 [facility] Automated blood lymphocyte count as percentage ot total leukocytes 7.0 18.0 - 39.1 01/09/2019 [facility] Automated blood monocyte count as percentage of total leukocytes 4.6 4.4 - 11.3 01/09/2019 [facility] Automated blood eosinophil count as percentage of total leukocytes 0.0 0.0 - 6.0 01/09/2019 [facility] Automated blood basophil count as percentage of total leukocytes 0.1 0.0 - 1.0 01/09/2019 [facility] IM GRANULOCYTES % 1.1 0.0 - 1.0 01/09/2019 [facility] Automated blood neutrophil count 7.4 2.1 - 6.9 01/09/2019 [facility] Blood lymphocytes count (number/volume) 0.6 1.0 - 3.2 01/09/2019 [facility] Blood monocytes automated count (number/volume) 0.4 0.2 - 0.8 01/09/2019 [facility] Automated blood eosinophil count 0.0 0.0 - 0.4 01/09/2019 [facility] Automated blood basophil count (count/volume) 0.0 0.0 - 0.1 01/09/2019 [facility] Absolute Immature Granulocyte (auto 0.09 0 - 0.1 01/09/2019 [facility] Serum or plasma sodium measurement (moles/volume) 140 136 - 145 01/09/2019 [facility] Serum or plasma potassium measurement (moles/volume) 4.4 3.5 - 5.1 01/09/2019 [facility] Serum or plasma chloride measurement (moles/volume) 91 98 - 107 01/09/2019 [facility] Serum or plasma carbon dioxide, total measurement (moles/volume) 40 22 - 29 01/09/2019 [facility] Serum or plasma anion gap 13.4 8 - 16 01/09/2019 [facility] Serum or plasma urea nitrogen measurement (mass/volume) 33 7 - 26 01/09/2019 [facility] Serum or plasma creatinine measurement (mass/volume) 1.41 0.72 - 1.25 01/09/2019 [facility] Serum or plasma urea nitrogen/creatinine mass ratio 23 6 - 25 01/09/2019 [facility] Estimated glomerular filtration rate (GFR) determination 49 60 01/09/2019 [facility] Glucose measurement 154 74 - 118 01/09/2019 [facility] Serum or plasma calcium measurement (mass/volume) 8.8 8.4 - 10.2 01/09/2019 [facility] Serum or plasma magnesium measurement (mass/volume) 2.5 1.3 - 2.1 01/09/2019 [facility] BNP Bld-mCnc 381.1 0 - 100 01/09/2019 [facility] Differential Total Cells Counted 100 01/08/2019 [facility] Manual blood neutrophils/100 leukocytes 91 40 - 74 01/08/2019 [facility] Manual blood lymphocytes/100 leukocytes 6 19 - 48 01/08/2019 [facility] Manual blood monocytes/100 leukocytes 3 3.4 - 9.0 01/08/2019 [facility] Blood platelets count by estimate (number/volume) ADEQUATE 01/08/2019 [facility] Platelet morphology NORMAL 01/08/2019 [facility] RBC morphology NORMAL 01/08/2019 [facility] Urine color determination STRAW YELLOW 01/07/2019 [facility] Urine clarity CLEAR CLEAR 01/07/2019 [facility] Specific gravity of Urine by Test strip 1.010 1.010 - 1.025 01/07/2019 [facility] Urine pH measurement by automated test strip 6 5 - 7 01/07/2019 [facility] Urine leukocyte esterase detection by dipstick NEGATIVE NEGATIVE 01/07/2019 [facility] Urine nitrite detection NEGATIVE NEGATIVE 01/07/2019 [facility] Urine protein measurement by test strip (mass/volume) NEGATIVE NEGATIVE 01/07/2019 [facility] Urine glucose detection NEGATIVE NEGATIVE 01/07/2019 [facility] Urine ketones detection by automated test strip NEGATIVE NEGATIVE 01/07/2019 [facility] Urine urobilinogen measurement by test strip (mass/volume) 0.2 0.2 - 1 01/07/2019 [facility] Urine total bilirubin measurement (mass/volume) NEGATIVE NEGATIVE 01/07/2019 [facility] Urine erythrocytes detection NEGATIVE NEGATIVE 01/07/2019 [facility] Automated urine sediment leukocyte count by microscopy (number/high power field) 0-5 0 - 5 01/07/2019 [facility] Erythrocytes detection in urine sediment by light microscopy NONE 0 - 5 01/07/2019 [facility] Bacteria detection in urine sediment by light microscopy NONE NONE 01/07/2019 [facility] Epithelial cells detection in urine sediment by light microscopy MODERATE NONE 01/07/2019 [facility] Transitional cells detection in urine sediment by light microscopy RARE NONE 01/07/2019 [facility] Hyaline casts detection in urine sediment by light microscopy >15 0 - 1 01/07/2019 [facility] Serum or plasma creatine kinase measurement (enzymatic activity/volume) 66 30 - 200 01/06/2019 [facility] Serum or plasma creatine kinase MB measurement (mass/volume) 2.50 0 - 5.0 01/06/2019 [facility] Troponin I measurement by highly sensitive enzyme immunoassay 0.005 0 - 0.300 01/06/2019 [facility] Hemoglobin A1c Percent 6.2 4.0 - 7.0 01/06/2019 [facility] Serum or plasma thyroxine (T4) free measurement (mass/volume) 0.76 0.9 - 1.8 01/06/2019 [facility] Serum or plasma thyrotropin measurement by detection limit <=0.005 miu/l (units/volume) 0.739 0.350 - 4.940 01/06/2019 [facility] Procalcitonin (PCT) level 0.07 0.00 - 0.08 01/06/2019 [facility] Arterial blood pH measurement 7.35 7.31 - 7.41 01/05/2019 [facility] pCO2 BldA 66 41 - 51 01/05/2019 [facility] pCO2 BldA 98 80 - 105 01/05/2019 [facility] Arterial blood bicarbonate measurement (moles/volume) 36 23 - 28 01/05/2019 [facility] Arterial blood base excess by calculation 10.0 -2 - 3 - 2 01/05/2019 [facility] Arterial blood oxygen saturation measurement 97.0 95 - 98 01/05/2019 [facility] FiO2 35 01/05/2019 [facility] Prothrombin time (PT) in platelet poor plasma by coagulation assay 16.2 11.9 - 14.5 01/05/2019 [facility] INR in Platelet poor plasma by Coagulation assay 1.24 01/05/2019 [facility] Activated partial thromboplastin time (aPTT) in platelet poor plasma bycoagulation assay 38.8 23.8 - 35.5 01/05/2019 [facility] Lactic Acid Level 13.5 4.5 - 19.8 01/05/2019 [facility] Serum or plasma total bilirubin measurement (mass/volume) 0.6 0.2 - 1.2 01/05/2019 [facility] Aspartate Amino Transf (AST/SGOT) 17 5 - 34 01/05/2019 [facility] Serum or plasma alanine aminotransferase measurement (enzymatic activity/volume) 14 0 - 55 01/05/2019 [facility] Serum or plasma protein measurement (mass/volume) 6.6 6.5 - 8.1 01/05/2019 [facility] Serum or plasma albumin measurement (mass/volume) 3.5 3.5 - 5.0 01/05/2019 [facility] Plasma globulin measurement (mass/volume) 3.1 2.3 - 3.5 01/05/2019 [facility] Serum or plasma albumin/globulin mass ratio 1.1 0.8 - 2.0 01/05/2019 [facility] Serum or plasma alkaline phosphatase measurement (enzymatic activity/volume) 106 40 - 150 01/05/2019 [facility] Blood culture NO GROWTH AFTER 72 HOURS 01/05/2019 [facility] Barium swallow DX Barium swallow DX Exam: Barium swallow esophagram Reason for Exam: - M13.10 Monoarthritis, not elsewhere classified, unspecified site Comparison Exam: None Discussion: On orthodontic band maker view of the cervical spine, the prevertebral [...] time 1 minute, 48 seconds. Total exam TJX=[id number] mGy-cm. Impression: 1. Unremarkable barium swallow esophagram [...] MD 12/28/18 10:58 FINAL REPORT [facility] Urine protein measurement (mass/volume) 20.3 1 - 14 12/12/2018 [facility] Urine creatinine measurement (mass/volume) 48.99 63 - 166 12/12/2018 [facility] Random urine protein/creatinine ratio 0.41 12/12/2018 [facility] Giant platelet detection FEW 09/15/2018 [facility] Blood hypochromia detection by light microscopy SLIGHT 09/15/2018 [facility] Blood ovalocytes detection by light microscopy FEW 09/15/2018 [facility] Phosphorus measurement 2.9 2.3 - 4.7 08/04/2018 [facility] Urine potassium measurement (moles/volume) 24.1 08/01/2018 [facility] Spine lumbar wo contrast MRI Spine lumbar [...] bilateral neural foraminal narrowing at L4-L5. SL: [id number] 12/04/2017 - - Read by: Jeremi Estrella MD Dictated Date/time: 12/05/17 09:49 Electronically Signed by: Jeremi Estrella MD 12/05/17 09:53 FINAL REPORT [facility] Spine cervical wo contrast MRI Spine cervical [...] foraminal narrowing, left greater than right. SL: [id number] 12/04/2017 - - Read by: Jeremi Estrella MD Dictated Date/time: 12/05/17 10:02 Electronically Signed by: Jeremi Estrella MD 12/05/17 10:07 FINAL REPORT [facility] Hip bilat w pelvis and both lat [...] should be multiplied by the estimated BMI. [facility] CHEM PANEL POC Creatinine 1.3 mg/dL 0.5 - 1.4 06/24/2016 [facility] [facility] Thor[facility] w/wo contrast MRI Spine Thoracic [...] nerve sheath tumor, or epidermoid cyst. SL: [id number] 06/24/2016 - - Read by: Jeremi Estrella MD Dictated Date/time: 06/24/16 11:42 Electronically Signed by: Jeremi Estrella MD 06/24/16 13:46 FINAL REPORT [facility] Spine lumbar w/wo contrast MRI Spine lumbar w/wo contrast MRI Patient Name: STEVE BENEDICT : 1945; Age: 70 years y/o Male MR: [id number] Study: Spine lumbar w/wo contrast MRI 06/24/2016 [...] compatible with acute on chronic denervation. SL: [id number] 06/24/2016 - - Read by: Jeremi Estrella [...] MD 06/19/16 17:38 FINAL REPORT [facility] thoracic wo contrast [...] SL:16 06/19/2016 - - Read by: Timo Trores MD Dictated Date/time: 06/19/16 17:19 Electronically Signed by: Timo Torres MD 06/19/16 17:38 FINAL REPORT [facility] Spine cervical 2 or 3 view DX [...] - This report was dictated by a Field Return Repairer/Fellow. I have personally reviewed the images as well as the Resident's interpretation and agree with the findings. Read by: Shane Santos MD Resident: Shane Santos MD Dictated Date/time: 04/23/16 10:48 Electronically Signed by: Joseline Torres MD 04/23/16 17:41 FINAL REPORT [facility] eGFR 55 mL/min/1.73m2 04/10/2016 Result Comment: The [...] should be multiplied by the estimated BMI. [facility] CHEM PANEL POC Creatinine 1.3 mg/dL 0.5 - 1.4 04/10/2016 [facility] Thoracic w/wo contrast MRI Spine Thoracic w/wo [...] Timo Torres MD 04/11/16 10:23 FINAL REPORT [facility] Spine lumbar w/wo contrast MRI Spine lumbar [...] smoking and anemia among other etiologies. SL: [id number] 03/28/2016 - - Read by: Dmitry Mullen MD Dictated Date/time: 03/28/16 08:23 Electronically Signed by: Dmitry Mullen MD 03/28/16 09:30 FINAL REPORT [facility] Bacterial urine culture Urine Culture [facility] Vital Signs Vital Sign Value Date Comments Source Encounters Location Location Details Encounter Type Encounter Number Reason For Visit Attending Provider ADM Date DC Date Status Source [facility] [place] [facility] [id number] Monique Reed 03/06/2016 03/07/2016 [facility] Outpatient [id number] Christopher Summers 03/28/2016 03/29/2016 [facility] Outpatient [facility] - [place] [facility] [id number] Angel Martínez 04/02/2016 04/03/2016 [facility] Outpatient [id number] Elida Valenzuela 04/10/2016 04/11/2016 [facility] - [place] [facility] [id number] Monique Reed 04/23/2016 04/24/2016 [facility] Outpatient [id number] FADI DANIEL 06/06/2016 [facility] Outpatient [id number] Fadi Daniel Jr 06/19/2016 06/20/2016 [facility] Outpatient [id number] Fadi Daniel Jr 06/24/2016 06/25/2016 [facility] Outpatient [id number] FADI DANIEL 07/11/2016 [facility] Outpatient Imaging [facility] [place] [facility] [id number] Mila Jones 04/23/2017 04/24/2017 [facility] Outpatient [id number] Oleksandr Whitt 12/05/2017 12/05/2017 [facility] Discharged Inpatient [id number] HAILEE HERNANDEZ MD 08/02/2018 08/05/2018 [facility] Discharged Inpatient [id number] ROSALIE MEDINA MD 09/13/2018 09/16/2018 [facility] Discharged Inpatient (obs) [id number] HAILEE HERNANDEZ MD 11/06/2018 11/07/2018 [facility] Outpatient [id number] [facility] 11/30/2018 Active [facility] [id number] HAILEE HERNANDEZ MD 12/08/2018 [facility] Discharged Inpatient [id number] ALINA PULIDO MD 12/13/2018 12/15/2018 [facility] Outpatient [id number] [facility] 12/16/2018 Active [facility] Outpatient [id number] [facility] 12/22/2018 Active [facility] Out[facility] [place] [facility] [id number] Mila Jones 12/28/2018 12/29/2018 [facility] [place] Dis[facility] Inpatient (obs) [id number] HAILEE HERNANDEZ MD 12/30/2018 12/31/2018 [facility] Discharged Inpatient [id number] ROSALIE MEDINA MD 01/05/2019 01/09/2019 [facility] Outpatient [id number] [facility] 02/02/2019 Active [facility] Outpatient [id number] [facility] 05/04/2019 Active [facility] Procedures Procedure Code Date Perfomer Comments Source US abdomen complete [id number] 01/06/2019 [facility] Computed tomography of chest with contrast [id number] 01/05/2019 [facility] PRQ CARD STENT W/ANGIO 1 VSL [id number] 12/08/2018 [facility] CORONARY ARTERY ANGIO S&I [id number] 12/08/2018 [facility] PRQ CARD STENT W/ANGIO 1 VSL [id number] 11/06/2018 [facility] CORONARY ARTERY ANGIO S&I [id number] 11/06/2018 [facility] X-ray of chest, two views [id number] 09/13/2018 [facility] Cystoscopy [id number] 08/25/2018 MEHNAZ Pyle X-ray of chest, two views [id number] 07/31/2018 [facility] Ultrasound, renal [id number] 07/31/2018 [facility] Complex uroflowmetry [id number] 03/30/2018 [facility] Catheter replacement [id number] [facility]<sup>1</sup> [id number] cervical fusion done on 09/11/[address] Nilo Adames [facility] Prostate manipulation [id number] [facility] Stent replacement [id number] [facility] Catheter replacement [id number] [facility] Fusion<sup>1</sup> [id number] cervical fusion done on 09/11/[address] Nilo Adames [facility] Prostate manipulation [id number] [facility] Stent replacement [id number] [facility]
[2019-02-08 14:38] LABS: BILIRUBIN,URINE NEGATIVE (NEGATIVE); CLARITY,URINE CLEAR (CLEAR); COLOR,URINE YELLOW (YELLOW); KETONES,URINE NEGATIVE (NEGATIVE); LEUKOCYTE ESTERASE ,URINE NEGATIVE (NEGATIVE); NITRITE,URINE NEGATIVE (NEGATIVE); PROTEIN,URINE DIPSTICK NEGATIVE (NEGATIVE); URINE UROBILINOGEN 0.2 mg/dL (0.2 - 1)
[2019-02-08 14:47] LABS: EPITHELIAL CELLS,URINE RARE /LPF
--- NOTE | 2019-02-08 15:55 | Diagnostic Imaging Report ---
EXAMINATION: CHEST SINGLE (NOT PORTABLE) INDICATION: Chest pain. COMPARISON: Chest radiograph 01/05/[address] chest 01/05/2019. FINDINGS: TUBES and LINES: Right IJ tunneled catheter terminates in the mid SVC. LUNGS: Lungs are well inflated. There is mild patchy opacity at the left lung base. No evidence of pulmonary edema. PLEURA: No pleural effusion or pneumothorax. HEART AND MEDIASTINUM: The cardiomediastinal silhouette is unremarkable. There are atherosclerotic calcifications within the aorta. BONES AND SOFT TISSUES: No acute osseous abnormality. Old healed left posterior rib fractures. UPPER ABDOMEN: No free air under the diaphragm. IMPRESSION: No evidence of pneumothorax. Mild patchy opacity at the left lung base, which may reflect atelectasis or early pneumonia in the appropriate clinical setting. Signed by: Dr. Roxanne Gonzalez MD on 02/08/2019 3:51 PM
--- NOTE | 2019-02-08 17:00 | NUR ---
PATIENT TO ER ROOM 7 VIA WHEELCHAIR FROM [facility],ASSUMED CARE AT THIS TIME, CONNECTED TO BEDSIDE MONITOR,NIBP AND SPO2 AND O2. NO SIGNS OF ACUTE DISTRESS NOTED AT THIS TIME.
--- NOTE | 2019-02-08 19:00 | NUR ---
VERBAL REPORT GIVEN TO MELISA NOE.
--- NOTE | 2019-02-08 19:30 | NUR ---
BLOOD DRAWN AND SENT TO LAB. PT AWAKE ALERT SKIN W/D RESP NONLAB. NAD NOTED. SEEN AND EVALUATED BY BONILLA LITTLE
[2019-02-08 19:32] LABS: BASOPHILS # (AUTO) 0.1 (0.0-0.1); BASOPHILS % 0.6 % (0.0-1.0); EOSINOPHILS # (AUTO) 0.3 (0.0-0.4); EOSINOPHILS % 3.4 % (0.0-6.0); HEMOGLOBIN 16.8 g/dL (14.0-18.0); LYMPHOCYTES # (AUTO) 1.2 (1.0-3.2); LYMPHOCYTES % 14.7 % (18.0-39.1); MEAN CORPUSCULAR HEMOGLOBIN 27.7 pg (28-32); MEAN CORPUSCULAR VOLUME 92.3 fL (81-99); MONOCYTES # (AUTO) 1.1 (0.2-0.8); MONOCYTES % 13.7 % (4.4-11.3); NEUTROPHILS # (AUTO) 5.6 (2.1-6.9); NEUTROPHILS % 67.2 % (38.7-80.0); PLATELET COUNT 257 x10e3/uL (140-360); RED BLOOD COUNT 6.07 x10e6/uL (4.3-5.7); RED CELL DISTRIBUTION WIDTH 16.2 % (11.7-14.4)
[2019-02-08 19:39] LABS: INR 1.05; PROTHROMBIN TIME 14.2 seconds (11.9-14.5)
[2019-02-08 19:40] LABS: PARTIAL THROMBOPLASTIN TIME 35.4 seconds (23.8-35.5)
[2019-02-08 19:48] LABS: ALBUMIN 3.9 g/dL (3.5-5.0); CALCIUM 10.7 mg/dL (8.4-10.2); CREATININE, SERUM 1.68 mg/dL (0.72-1.25)
[2019-02-08 19:53] LABS: CREATINE KINASE MB 1.4 ng/mL (0-5.0)
[2019-02-08] MEDS ORDERED: ALDACTAZIDE 501 EACH PO (20:00)
[2019-02-08] MEDS ORDERED: XARELTO15 MG PO (20:00)
[2019-02-08] MEDS ORDERED: BUMETANIDE2 MG PO (20:00)
[2019-02-08] MEDS ORDERED: METOLAZONE5 MG PO (20:00)
[2019-02-08] MEDS ORDERED: CLINDAMYCIN HC300 MG PO (20:00)
[2019-02-08] MEDS ORDERED: ALPRAZOLAM0.5 MG PO (20:00)
[2019-02-08] MEDS ORDERED: COSENTYX IM (20:00)
[2019-02-08] MEDS ORDERED: HYDROMORPHONE SC (20:00)
[2019-02-08] MEDS ORDERED: BUPIVACAINE SC (20:00)
[2019-02-08] MEDS ORDERED: VITAMIN D32000 UNIT PO (20:00)
[2019-02-08] MEDS ORDERED: aclovate (20:00)
[2019-02-08 20:01] LABS: ANION GAP 18.8 mmol/L (8-16)
[2019-02-08 20:03] LABS: POTASSIUM 2.8 mmol/L (3.5-5.1)
[2019-02-08] MEDS ORDERED: POTASSIUM CHLORIDE 20 MEQ TAB CR PO NR (20:30)
[2019-02-08] MEDS ORDERED: POTASSIUM CHLORIDE 10MEQ/100ML 100 ML IV ONE ×2 (20:30→21:30)
[2019-02-08] MEDS ORDERED: VANCOMYCIN 1GM/NS 250 ML 250 ML IV STA (22:01)
--- NOTE | 2019-02-08 22:02 | NUR ---
call placed to dr. fishman for this patient
[2019-02-08] MEDS ORDERED: CARISOPRODOL 350 MG TAB PO PRN (22:15)
[2019-02-08] MEDS ORDERED: ACETAMINOPHEN 325 MG TAB PO PRN (22:15)
[2019-02-08] MEDS ORDERED: DEXTROSE 50% SYRINGE 50 ML IV PRN ×2 (22:15)
[2019-02-08] MEDS ORDERED: COSENTYX IM SCH (22:15)
[2019-02-08] MEDS ORDERED: [UNRECOGNIZED DRUG - OTHER] INH PRN (22:15)
[2019-02-08] MEDS ORDERED: SODIUM CHLORIDE FLUSH 10 ML SYR INJ PRN (22:15)
[2019-02-08] MEDS ORDERED: VITAMIN B12 PO SCH (22:15)
[2019-02-08] MEDS ORDERED: SODIUM CHLORIDE FOR INHALATION 7% INH PRN (22:15)
[2019-02-08] MEDS ORDERED: HYDROMORPHONE HCL 2 MG TAB PO PRN (22:15)
[2019-02-08] MEDS: ALBUTEROL/IPRATROPIUM 3 ML NEB NEB SCH (23:00)
[2019-02-08] MEDS: METOPROLOL TARTRATE 25 MG TAB PO SCH (23:43)
[2019-02-09] MEDS: CEFTRIAXONE SOD 1 GM/NS 50 ML 50 ML IV SCH ×2 (00:04→21:30)
--- NOTE | 2019-02-09 00:10 | NUR ---
PT STATES HE CANNOT BREATHE THROUGH NOSE, PT PUT A SIMPLE FACE MASK ON THAT THE BROUGHT FROM HOME AT 4L. REMOVED AND PLACED ON 30% VENTI-MASK. AWAKE ALERT SKIN W/D RESP NONLAB, NAD NOTED.
[2019-02-09] MEDS: AZITHROMYCIN 500MG/NS 250 ML 250 ML IV SCH ×2 (00:26→22:13)
[2019-02-09] MEDS ORDERED: VANCOMYCIN 1GM/NS 250 ML 250 ML ONE (01:49)
[2019-02-09 02:20] VITALS: BP 136/74
--- NOTE | 2019-02-09 02:20 | NUR ---
patient received to room 291 via stretcher from the er. vss. no c/o pain noted. %/vm in use. respirations even and unlabored. patient c/o sob on exertion. 2+ pitting edema noted to ble with small fluid filled blisters noted to ble. telemetry #29 showing afib at this time. admit assessment/history complete. patient refuses bed alarm at this time. patient instructed to call for assistance when needed. patient verbalizes understanding of this and agrees to call if needed.
--- NOTE | 2019-02-09 03:52 | NUR ---
cardiac markers and am cbc and cmp drawn at this time and sent to lab.
[2019-02-09 03:59] LABS: BASOPHILS % 0.5 % (0.0-1.0); EOSINOPHILS # (AUTO) 0.3 (0.0-0.4); EOSINOPHILS % 4.4 % (0.0-6.0); HEMATOCRIT 50.3 % (38.2-49.6); HEMOGLOBIN 15.2 g/dL (14.0-18.0); LYMPHOCYTES # (AUTO) 1.1 (1.0-3.2); LYMPHOCYTES % 17.9 % (18.0-39.1); MEAN CORPUSCULAR HEMOGLOBIN 27.4 pg (28-32); MEAN CORPUSCULAR HGB CONC 30.2 g/dL (31-35); MEAN CORPUSCULAR VOLUME 90.6 fL (81-99); MONOCYTES % 16.3 % (4.4-11.3); NEUTROPHILS # (AUTO) 3.8 (2.1-6.9); NEUTROPHILS % 60.6 % (38.7-80.0); PLATELET COUNT 239 x10e3/uL (140-360); RED BLOOD COUNT 5.55 x10e6/uL (4.3-5.7); RED CELL DISTRIBUTION WIDTH 15.9 % (11.7-14.4)
[2019-02-09 04:58] LABS: ALBUMIN 3.4 g/dL (3.5-5.0); ANION GAP 16.4 mmol/L (8-16); CREATININE, SERUM 1.78 mg/dL (0.72-1.25); POTASSIUM 3.4 mmol/L (3.5-5.1)
[2019-02-09 05:06] LABS: CREATINE KINASE MB 0.9 ng/mL (0-5.0)
[2019-02-09] MEDS: LEVOTHYROXINE SODIUM 100 MCG TAB PO SCH (05:13)
[2019-02-09] MEDS ORDERED: SODIUM CHLORIDE 3% FOR INHALATION 15 ML NEB IH PRN (06:00)
[2019-02-09] MEDS ORDERED: INSULIN REGULAR, HUMAN 100 UNIT/1 ML 3ML VIAL SQ SCH ×2 (07:30)
--- NOTE | 2019-02-09 07:32 | NUR ---
PATIENT SITTING AT BED SIDE RECEIVING NEB TREATMENT, NO DISTRESS NOTED. REDNESS AND AND SWELLING TO LOWER EXTREMITIES WITH SMALL CLOSE BLISTERS NOTED. URINAL EMPTIED AND CLEANSED. BED IN LOWER POSITION, CALL LIGHT AT REACH.
[2019-02-09 07:40] VITALS: BP 128/56
[2019-02-09] MEDS: ALBUTEROL/IPRATROPIUM 3 ML NEB NEB SCH ×2 (07:50→11:35)
[2019-02-09] MEDS: BUDESONIDE 0.5MG/2 ML NEB NEB SCH ×2 (07:55→19:15)
[2019-02-09 08:00] VITALS: BP 128/56
[2019-02-09] MEDS: ASPIRIN 81 MG CHEW TAB PO SCH ×2 (09:00→18:00)
[2019-02-09] MEDS ORDERED: ACLOVATE SCH (09:00)
[2019-02-09] MEDS: CLOPIDOGREL BISULFATE 75 MG TAB PO SCH ×2 (09:00→18:00)
[2019-02-09] MEDS: RIVAROXABAN 15 MG TABLET PO SCH (09:00)
[2019-02-09] MEDS: NON-FORMULARY MEDICATION (Mirabegron (Myrbetriq) 50 MG) PO SCH (09:00)
[2019-02-09] MEDS ORDERED: NON-FORMULARY MEDICATION (Mirabegron (Myrbetriq) 50 MG) PO SCH (09:00)
[2019-02-09] MEDS ORDERED: [UNRECOGNIZED DRUG - OTHER] PO SCH (09:00)
[2019-02-09] MEDS: ACLOVATE SCH (09:00)
[2019-02-09] MEDS: LIOTHYRONINE SODIUM 5 MCG TAB PO SCH (09:34)
[2019-02-09] MEDS: SPIRONOLACTONE 25 MG TAB PO SCH (09:34)
[2019-02-09] MEDS: CLINDAMYCIN HCL 150 MG CAP PO SCH ×3 (09:34→20:39)
[2019-02-09] MEDS: BUMETANIDE 1 MG TAB PO SCH ×2 (09:34→17:37)
[2019-02-09] MEDS: HYDROCHLOROTHIAZIDE 25 MG TAB PO SCH (09:35)
[2019-02-09] MEDS: METOLAZONE 5 MG TAB PO SCH (09:35)
[2019-02-09] MEDS: BACLOFEN 10 MG TAB PO SCH ×3 (09:35→20:39)
[2019-02-09] MEDS: CYANOCOBALAMIN 1,000 MCG TAB PO SCH (09:35)
[2019-02-09] MEDS: GUAIFENESIN 200 MG/10 ML UDC PO SCH ×2 (09:35→17:00)
[2019-02-09] MEDS: FOLIC ACID 1 MG TAB PO SCH ×2 (09:35→17:37)
[2019-02-09] MEDS: METOPROLOL TARTRATE 25 MG TAB PO SCH ×2 (10:15→22:13)
--- NOTE | 2019-02-09 12:00 | NUR ---
PATIENT SITTING AT BED SIDE EATING LUNCH, NO COMPLAIN VOICED. CALL LIGHT AT REACH.
[2019-02-09 12:44] VITALS: BP 113/56
[2019-02-09] MEDS: CLOBETASOL PROPIONATE 0.05% CRM 15 GM TUBE TOP SCH (12:48)
[2019-02-09 12:53] LABS: CREATINE KINASE MB 1.1 ng/mL (0-5.0)
--- NOTE | 2019-02-09 16:35 | NUR ---
Visit made by the Spiritual Care Department Pastoral Visitor, Nubia Rea. PV provided pastoral presence, prayer, hospitality, and supportive listening. Pastoral Visitor informed pt/family of the scope of [employer] and availability. LUCY WALDRON [employer] Spiritual Care Department O: [phone] Pager: [phone] ([phone] number calling from)
[2019-02-09 16:40] VITALS: BP 127/64
--- NOTE | 2019-02-09 16:55 | NUR ---
PATIENT SITTING UP IN BED TALKING TO FAMILY MEMBER VISITING, NO COMPLAIN VOICED. CALL LIGHT AT REACH.
--- NOTE | 2019-02-09 17:59 | Consultation ---
DATE OF CONSULTATION: 02/09/2019 Cardiology Consultation REASON FOR CONSULTATION: Chest pain. HISTORY OF PRESENT ILLNESS: This is a 73-year-old man with history of coronary artery disease with recent stent, atrial fibrillation on Xarelto, chronic diastolic heart failure, hypertension, hyperlipidemia, cirrhosis by CT imaging, and chronic kidney disease, who is well known to our service, who presents with complaints of lightheadedness. The patient reports he had four episodes of dizziness yesterday associated with sensation that his legs could not hold him up. He therefore presented to the ER for further evaluation. Of note, he also reports he has been having chest pain for the last two days. The pain has been constant, 8/10 in severity. He describes it as a burning sensation that is different from his prior cardiac pain. He denies any shortness of breath, nausea, diaphoresis, or radiation. He denies any orthopnea or PND. REVIEW OF SYSTEMS: Negative except as per HPI. PAST MEDICAL HISTORY: 1. Coronary artery disease with recent stent. 2. Atrial fibrillation, on Xarelto. 3. Chronic diastolic heart failure. 4. Chronic kidney disease. 5. Evidence of cirrhosis on CT. 6. Diabetes mellitus. 7. Hypertension. 8. Hyperlipidemia. 9. COPD. PAST SURGICAL HISTORY: PCI. ALLERGIES: NO KNOWN DRUG ALLERGIES. MEDICATIONS: Please see medication list. SOCIAL HISTORY: No tobacco, alcohol, or illicit drugs. FAMILY HISTORY: Noncontributory to current illness. PHYSICAL EXAMINATION: VITAL SIGNS: Temperature 96.7 degrees, pulse 89, respiratory rate 20, blood pressure 128/56, and oxygen saturation 97% on 4 L nasal cannula. GENERAL: Well-developed, well-nourished man, in no acute distress. HEENT: Normocephalic, atraumatic. Pupils equal. No scleral icterus. NECK: Supple. No thyromegaly or cervical lymphadenopathy. No carotid bruits. LUNGS: Clear to auscultation bilaterally. No wheezes or crackles. CARDIOVASCULAR: Normal rate. Regular rhythm. No murmur. Normal S1, S2. ABDOMEN: Soft, nontender. EXTREMITIES: 2+ pitting edema bilaterally with erythema. NEUROLOGIC: Nonfocal exam. LABORATORY DATA: WBC 6.3, hemoglobin 15.2, hematocrit 50.3, platelets 239. Sodium 140, potassium 3.4, chloride 83, CO2 of 44, BUN 47, creatinine 1.78. Troponin 0.017. BNP 257. Chest x-ray, mild patchy opacity at the left lung base, which may represent atelectasis or early pneumonia in the appropriate clinical setting. EKG, atrial fibrillation with left axis deviation. RECOMMENDATIONS: No evidence of myocardial infarction on serial cardiac biomarkers. As the patient has ruled out for myocardial infarction, no need to repeat echocardiogram as the patient's last echocardiogram was performed in December of this year with normal LVEF and mild concentric LVH. The patient had last ischemic evaluation in November of this year with PCI of the RCA. Prior to that, the patient had cardiac catheterization in October with moderate coronary artery disease and PCI of the LAD. No further cardiac evaluation is indicated at this time. Consider evaluation of alternate etiologies of the patient's chest pain. Continue home cardiac medications otherwise. Volume management per Nephrology given chronic kidney disease. Continue Xarelto for CVA prophylaxis. Monitor the patient closely on telemetry while admitted. Thank you for this consult. We will continue to follow. Zenaida Randolph MD ABS/MODL /[id number]
--- NOTE | 2019-02-09 18:00 | NUR ---
SPOKE WITH MD REGARDING PATIENT REFUSING HIS BLOOD THINNERS. MD EDUCATED PATIENT ABOUT THE IMPORTANCE OF TAKING HIS BLOOD THINNERS. PATIENT AGREED TO TAKE HIS MEDICATIONS. ASPIRIN AND PLAVIX ADMINISTERED ORDERED.
--- NOTE | 2019-02-09 19:00 | NUR ---
patient received awake, alert, sitting up on side of bed. no c/o pain noted. pm assessment complete. noted at the bedside. patient/ instructed to call for assistance when needed.
[2019-02-09] MEDS: LEVALBUTEROL HCL SOLN NEBU 0.63 MG/3 ML NEB INH SCH ×2 (19:15→23:10)
[2019-02-09] MEDS: IPRATROPIUM BROMIDE 0.02% 2.5 ML NEB NEB SCH ×2 (19:15→23:10)
[2019-02-09 19:30] VITALS: BP 126/68
[2019-02-09] MEDS: CHOLECALCIFEROL 1,000 UNIT TAB PO SCH (20:39)
[2019-02-09] MEDS: ALPRAZOLAM 0.5 MG TAB PO SCH (20:39)
[2019-02-09] MEDS: PRAMIPEXOLE DIHYDROCHLORIDE 0.25 MG TAB PO SCH ×2 (20:39→20:47)
[2019-02-09] MEDS: SERTRALINE HCL 50 MG TAB PO SCH (20:39)
[2019-02-09] MEDS: ROPINIROLE HCL 0.25 MG TAB PO SCH (20:39)
[2019-02-09] MEDS: PANTOPRAZOLE SOD 40 MG TABEC PO SCH (20:39)
[2019-02-09] MEDS ORDERED: SODIUM CHLORIDE 0.9% 250ML 250 ML ONE (20:40)
[2019-02-09] MEDS: LATANOPROST(OPTH) 2.5 ML BTL OU SCH (21:00)
--- NOTE | 2019-02-09 21:13 | NUR ---
patient refuses vital signs at 0000 and 0400. patient states, " I do not want to be woke up for vital signs through the night. you can wake me up to take my vs at 0600. "
[2019-02-10] VITALS (7 sets, daily range): BP systolic 100–117; BP diastolic 60–65
--- NOTE | 2019-02-10 02:36 | History and Physical ---
CHIEF COMPLAINT: History of UTI, recommendation antibiotic. HISTORY OF PRESENT ILLNESS: This patient who is a 73-year-old white male, well known to me, who has history of atrial fibrillation, chronic diastolic congestive heart failure, chronic kidney disease, liver cirrhosis, diabetes mellitus, hypertension, hyperlipidemia, and COPD, who was recently diagnosed with UTI and he had a central line placed. The patient received IV antibiotic and was DC. The patient is coming now with shortness of breath and not feeling well in general. There is no specific fever. No chills. No nausea. No vomiting. No diarrhea. He has some chest discomfort, some shortness of breath and some minimal cough, which took place last few days. The patient came into the hospital and he was admitted. I was asked to see him, . The patient when I saw him, he seems comfortable, but he is still having some shortness of breath. LABORATORY DATA: White count 6.3, hemoglobin 15. Sodium 140, potassium 3.4, and his creatinine 1.78, glucose 166. REVIEW OF SYSTEMS: HEENT: There is currently no headache, visual change or hearing changes. GI: There is no nausea, no vomiting, no diarrhea. CARDIAC: There is no arrhythmia. NEURO: No seizure activity. SKIN: There is no other rashes. PHYSICAL EXAMINATION: GENERAL: He is alert, oriented, does not seem in acute distress. VITAL SIGNS: Stable. There is no fever. HEENT: Not icteric. NECK: Supple. CHEST: Clear. Few crackles bilateral. HEART: S1, S2. No S3, S4, or murmur. ABDOMEN: Soft. Bowel sounds present. No tenderness. No hepatosplenomegaly. EXTREMITIES: Trace edema bilateral. SKIN: No rash. LABORATORY DATA: Lab data reviewed. Chart reviewed. MEDICATION LIST: He is currently on Tylenol, DuoNeb, Xanax, and aspirin. He is on clindamycin, Cytomel, and Lopressor. He is on Plavix, aspirin, Bumex clindamycin, Zaroxolyn, Aldactone, Cytomel, azithromycin, and Rocephin. He had a chest x-ray, which was done and showed no evidence of pneumothorax. Mild patchy opacity in the left lung base, which may reflect atelectasis or early pneumonia. IMPRESSION: Chest pain. Cardiology was consulted. I am concerned about community-acquired pneumonia. I agree with Rocephin, azithromycin. We will plan five days of antibiotic. The patient has history of congestive heart failure. He is at risk for pneumonia, coronary artery disease, chronic kidney disease, cirrhosis, diabetes mellitus. Discussed with internal Medicine, we will follow. MD CATHERINE Melendez/STEVE /[id number]
[2019-02-10] MEDS: LEVALBUTEROL HCL SOLN NEBU 0.63 MG/3 ML NEB INH SCH ×5 (02:40→20:15)
[2019-02-10] MEDS: IPRATROPIUM BROMIDE 0.02% 2.5 ML NEB NEB SCH ×5 (02:40→20:15)
[2019-02-10] MEDS: LEVOTHYROXINE SODIUM 100 MCG TAB PO SCH (05:27)
[2019-02-10 06:40] LABS: BASOPHILS % 0.6 % (0.0-1.0); EOSINOPHILS # (AUTO) 0.2 (0.0-0.4); EOSINOPHILS % 2.9 % (0.0-6.0); HEMATOCRIT 49.4 % (38.2-49.6); LYMPHOCYTES # (AUTO) 1.2 (1.0-3.2); LYMPHOCYTES % 16.8 % (18.0-39.1); MEAN CORPUSCULAR HEMOGLOBIN 27.5 pg (28-32); MEAN CORPUSCULAR HGB CONC 30.4 g/dL (31-35); MEAN CORPUSCULAR VOLUME 90.5 fL (81-99); MONOCYTES % 14.5 % (4.4-11.3); NEUTROPHILS # (AUTO) 4.4 (2.1-6.9); NEUTROPHILS % 64.8 % (38.7-80.0); PLATELET COUNT 228 x10e3/uL (140-360); RED BLOOD COUNT 5.46 x10e6/uL (4.3-5.7)
[2019-02-10 07:13] LABS: CALCIUM 10.1 mg/dL (8.4-10.2); CREATININE, SERUM 1.72 mg/dL (0.72-1.25); MAGNESIUM 2.1 MG/DL (1.3-2.1); PHOSPHORUS 3.1 MG/DL (2.3-4.7)
[2019-02-10] MEDS: NON-FORMULARY MEDICATION (Mirabegron (Myrbetriq) 50 MG) PO SCH (09:00)
[2019-02-10] MEDS: GUAIFENESIN 200 MG/10 ML UDC PO SCH ×2 (09:00→16:20)
[2019-02-10] MEDS: BUDESONIDE 0.5MG/2 ML NEB NEB SCH ×2 (09:00→20:15)
[2019-02-10] MEDS: ACLOVATE SCH (09:00)
--- NOTE | 2019-02-10 09:45 | NUR ---
Pt received resting in bed. Alert and oriented x 4. Pt with +3 pitting lower extremities edema. Pt Oriented to staff and surroundings, advised to press call cassidy if help needed. Emotional support given. All meds given as ordered. Will monitor
[2019-02-10] MEDS: SUCRALFATE 1 GM TAB PO SCH ×3 (09:55→16:56)
[2019-02-10] MEDS: METOLAZONE 5 MG TAB PO SCH (09:56)
[2019-02-10] MEDS: SPIRONOLACTONE 25 MG TAB PO SCH (09:56)
[2019-02-10] MEDS: FOLIC ACID 1 MG TAB PO SCH ×2 (09:56→16:57)
[2019-02-10] MEDS: CYANOCOBALAMIN 1,000 MCG TAB PO SCH (09:56)
[2019-02-10] MEDS: ASPIRIN 81 MG CHEW TAB PO SCH (09:56)
[2019-02-10] MEDS: HYDROCHLOROTHIAZIDE 25 MG TAB PO SCH (09:56)
[2019-02-10] MEDS: CLOPIDOGREL BISULFATE 75 MG TAB PO SCH (09:56)
[2019-02-10] MEDS: METOPROLOL TARTRATE 25 MG TAB PO SCH ×2 (09:56→22:15)
[2019-02-10] MEDS: CLOBETASOL PROPIONATE 0.05% CRM 15 GM TUBE TOP SCH (09:56)
[2019-02-10] MEDS: BUMETANIDE 1 MG TAB PO SCH ×2 (09:56→16:57)
[2019-02-10] MEDS: RIVAROXABAN 15 MG TABLET PO SCH (09:56)
[2019-02-10] MEDS: BACLOFEN 10 MG TAB PO SCH ×3 (09:56→20:13)
[2019-02-10] MEDS: CLINDAMYCIN HCL 150 MG CAP PO SCH ×3 (09:56→20:13)
[2019-02-10] MEDS: LIOTHYRONINE SODIUM 5 MCG TAB PO SCH (09:56)
--- NOTE | 2019-02-10 16:17 | NUR ---
Wound Care Consultation - Initial Evaluation Patient Admitted for Afib, Cellulitis BLE, Chronic Renal Insufficiency, COPD. HX: Afib, CHF, CKD, Liver Cirrosis, DM type 2, HTN, Hyperlipidemia, COPD. Dr. Mcclelland on case for early pna tx. ( Plan of 5 days of Abx)- - BLE Arterial US - RLE- DPA 45 Tripahasic, LLE DPA 39 Biphasic. BLE arterial disease w/o evidence of significant arterial stenosis. - Echocardiogram - 55-60% EF. WBC6.85 HCT49.4 HGB15 NEUT%64.8 [id number] WC Consulted for BLE Blister evaluation. PATIENT VISIT: Patient AAOX4, Calm Cooperative. Presents with BLE Edema +3-4. States to have been using compression at home and lymphedema pumps but it got to the point where the swelling was above the knee and groin areas. He stopped using the wraps at home and feet and lower legs began to swell without resolving upper leg swelling. Noted nodules to anterior aspect of BLE with mild pink/redness. Patient on Bumex, same medications he was taking at home. Patient states that Dr. Gar ( Nephrology) is going to visit him and will evaluate/ adjust treatment plan. At this time I will wait for diuretics to be adjusted before recommending compression to BLE. Patient agreeable to plan. States it would be too uncomfortable and swelling will just shift to other areas. Will continue to follow patient and will recommend initiating compression when medically appropriate. Education provided to patient to elevate legs on pillows/ elevate foot of bed while reduce or prevent further swelling, verbalized understanding. Thank you for consulting with Wound Care. . Addendum: 02/10/19 at 1635 by Shlomo Faust RN Amended: Links added.
--- NOTE | 2019-02-10 17:49 | NUR ---
Pt stated that he does not want to be woken up for vitals during the night. He also stated that he does not want anyone in his room between 9pm to 6am. Medications changed to meet pt's needs. Will endorse to next shift
--- NOTE | 2019-02-10 18:10 | Progress Note ---
DATE: 02/10/2019 Cardiology Progress Note SUBJECTIVE: The patient denies chest pain or shortness of breath. OBJECTIVE: VITAL SIGNS: Temperature 96.7 degrees, pulse 89, respiratory rate 18, blood pressure 117/62, oxygen saturation 100% on 3 L nasal cannula. GENERAL: Awake, alert, in no acute distress. LUNGS: Clear to auscultation bilaterally. No wheeze or crackles. CARDIOVASCULAR: Normal rate, regular rhythm. No murmur. Normal S1, S2. ABDOMEN: Soft, nontender. EXTREMITIES: 2+ pitting edema bilaterally with erythema. CARDIAC MEDICATIONS: Hydrochlorothiazide 50 mg p.o. daily, Xarelto 15 mg p.o. daily, Bumex 2 mg p.o. b.i.d., rivaroxaban 15 mg p.o. daily, metoprolol tartrate 25 mg p.o. q.12 hours, metolazone 5 mg p.o. daily, liothyronine 5 mcg p.o. daily, Plavix 75 mg p.o. daily, aspirin 81 mg p.o. daily, levothyroxine 100 mcg p.o. daily. LABORATORY DATA: WBC 6.85, hemoglobin 15, hematocrit 49.4, platelets 228. Sodium 141, potassium 3, chloride 83, CO2 45, BUN 41, creatinine 1.72. TELEMETRY: Atrial fibrillation. IMPRESSION: 1. Coronary artery disease status post recent stent. 2. Atrial fibrillation on Xarelto. 3. Chronic diastolic heart failure. 4. Hypertension. 5. Hyperlipidemia. 6. Cirrhosis by CT imaging. 7. Chronic kidney disease. RECOMMENDATIONS: Continue current cardiac medications. The patient's blood pressure has been stable. He has ruled out for myocardial infarction. No indication to repeat echocardiogram at this time as his last echo was performed in December of this year with normal LVEF with mild concentric left ventricular hypertrophy. His last ischemic evaluation was in October with stents to the LAD as well as a PCI of the RCA in November. No further cardiac evaluation is indicated at this time. Volume management per Nephrology given chronic kidney disease. Continue Xarelto for CVA prophylaxis, this can be held two days prior to any planned procedures. Monitor patient closely on telemetry while admitted. Thank you for this consult. We will continue to follow. MD ROB Ceballos/MODL /[id number]
--- NOTE | 2019-02-10 19:00 | NUR ---
patient received awake, alert, sitting up on side of bed. no c/o pain noted. respirations even and unlabored. 11/29l/nc in use. pm assessment complete. call cassidy placed within reach. patient instructed to call for assistance when needed.
[2019-02-10] MEDS: AZITHROMYCIN 500MG/NS 250 ML 250 ML IV SCH (19:54)
[2019-02-10] MEDS: SERTRALINE HCL 50 MG TAB PO SCH (20:13)
[2019-02-10] MEDS: PANTOPRAZOLE SOD 40 MG TABEC PO SCH (20:13)
[2019-02-10] MEDS: ALPRAZOLAM 0.5 MG TAB PO SCH (20:13)
[2019-02-10] MEDS: ROPINIROLE HCL 0.25 MG TAB PO SCH (20:13)
[2019-02-10] MEDS: CHOLECALCIFEROL 1,000 UNIT TAB PO SCH (20:13)
[2019-02-10] MEDS: PRAMIPEXOLE DIHYDROCHLORIDE 0.25 MG TAB PO SCH (20:13)
[2019-02-10] MEDS: LATANOPROST(OPTH) 2.5 ML BTL OU SCH (20:20)
[2019-02-10] MEDS: CEFTRIAXONE SOD 1 GM/NS 50 ML 50 ML IV SCH (21:00)
--- NOTE | 2019-02-10 21:07 | NUR ---
patient c/o of substernal chest pain 06/05. patient states, " It's the same kind of pain that i've been having for awhile. " bp 103/62 hr 99 rr 22 02 sats 93. curtis placed to re: chest pain. stat ekg and cardiac x 3 ordered.
--- NOTE | 2019-02-10 21:45 | NUR ---
ekg obtained, cardiac markers drawn and patient medicated with dilaudid 4 mg (half ordered dose) po for c/o chest pain. patient states, " I don't want the whole 8 mg because it makes me very loopy."
[2019-02-10 22:39] LABS: CREATINE KINASE MB 1.1 ng/mL (0-5.0)
[2019-02-11] VITALS (8 sets, daily range): BP systolic 97–124; BP diastolic 55–71
[2019-02-11] MEDS: IPRATROPIUM BROMIDE 0.02% 2.5 ML NEB NEB SCH ×6 (00:15→20:20)
[2019-02-11] MEDS: LEVALBUTEROL HCL SOLN NEBU 0.63 MG/3 ML NEB INH SCH ×6 (00:15→20:20)
[2019-02-11] MEDS ORDERED: POTASSIUM CHLORIDE 20 MEQ TAB CR PO STA (02:22)
[2019-02-11] MEDS: LEVOTHYROXINE SODIUM 100 MCG TAB PO SCH (05:17)
--- NOTE | 2019-02-11 05:58 | Consultation ---
DATE OF CONSULTATION: 02/10/2019 Pulmonary Medicine Consult. HISTORY OF PRESENT ILLNESS: Mr. Sharma is a very pleasant 73-year-old gentleman with shortness of breath. The patient was admitted with cellulitis of the legs. The patient had additional altered mental status. He said he recently had his medicines changed. He fell four times in four days prior to hospitalization. He came to the emergency room on February 08, 2019. The patient with additional shortness of breath. He states his oxygen is now required all the time as he is more dyspneic. He is having increasing leg edema, although it is getting better, so far since hospitalization. The patient with chest x-ray demonstrating small atelectasis versus infiltrate. He is admitted and it is slow progress . His additional sleep apnea and CPAP that he uses. He has restless leg/periodic limb movements of sleep disorder. He has additional asthma. In April 2015, he had pulmonary function testing at [facility] demonstrating FEV1 of 0.96 L or 31% predicted. FVC was 1.95 L or 46% predicted with significant bronchodilator response. RV 187%. Diffusion capacity 10.76, 38%. PAST MEDICAL HISTORY: COPD, asthma, CHF, LVEF 64%, atrial fibrillation, CKD, hypertension, diabetes, hypothyroidism, BPH, was a mild, severe PLMS, and Parkinson's syndrome early. MEDICATIONS: Medication list reviewed per the chart record. ALLERGIES: NO KNOWN DRUG ALLERGIES. SOCIAL HISTORY: No smoking. No drinking. No drugs. FAMILY HISTORY: Noncontributory. REVIEW OF SYSTEMS: GENERAL: No malaise. ENT: No mouth ulcers. OPHTHALMOLOGIC: No problems. ENDOCRINE: No thyroid abnormality. PULMONARY: No hemoptysis. CARDIAC: No recent AR. GI: No diarrhea. : No kidney stones. MUSCULOSKELETAL: No broken bones recently. DERMATOLOGIC: No rashes except for stasis to the legs. NEUROLOGIC: No seizures. OBJECTIVE: VITAL SIGNS: Reviewed per the chart record. GENERAL: In no distress, although weak and cannot fully finish paragraphs without dyspnea. HEENT: Normocephalic, atraumatic. NECK: Supple. Throat midline. LUNGS: Bilateral air entry, rare rhonchi, rare wheeze. CARDIOVASCULAR: S1, S2. No murmurs, rubs, or gallops. ABDOMEN: Soft, nontender. EXTREMITIES: No clubbing, no cyanosis. There is 2 to 3+ edema. INTEGUMENT: No rash. No purpura. LABORATORY DATA: 3.0 potassium, 41 BUN, and 1.7 creatinine. 7 white count, 49 hematocrit, and 220 platelets. IMPRESSION AND PLAN: 1. Chronic obstructive pulmonary disease with mild exacerbation. 2. Concomitant asthma. 3. Fluid overload. 4. Mild obstructive sleep apnea. 5. Severe periodic limb movements in sleep. 6. Debility/weakness. 7. Ankylosing spondylitis. 8. Chronic kidney disease. 9. Hypertension. 10. Benign prostatic hypertrophy. 11. Atrial fibrillation history. 12. Hypertension, diabetes, hypothyroid state. Continue inhaled budesonide. Bronchodilators. Antibiotic for COPD and early pneumonia. . He often defers acute BiPAP while here in the hospital, but we will resume after he goes home. Continue diuretics. Aggressive PT, OT to continue. Thank you very much, Dr. Short, and for allowing me a chance to participate in the care of Mr. Sharma. Please call for questions. MD BREANNA Paulino/STEVE /[id number]
[2019-02-11] MEDS: NON-FORMULARY MEDICATION (Mirabegron (Myrbetriq) 50 MG) PO SCH (09:00)
[2019-02-11] MEDS: GUAIFENESIN 200 MG/10 ML UDC PO SCH ×2 (09:00→16:16)
[2019-02-11] MEDS: ACLOVATE SCH (09:00)
[2019-02-11] MEDS: SUCRALFATE 1 GM TAB PO SCH ×3 (09:36→16:59)
[2019-02-11] MEDS: CYANOCOBALAMIN 1,000 MCG TAB PO SCH (09:36)
[2019-02-11] MEDS: LIOTHYRONINE SODIUM 5 MCG TAB PO SCH (09:36)
[2019-02-11] MEDS: ASPIRIN 81 MG CHEW TAB PO SCH (09:36)
[2019-02-11] MEDS: METOLAZONE 5 MG TAB PO SCH (09:36)
[2019-02-11] MEDS: SPIRONOLACTONE 25 MG TAB PO SCH (09:36)
[2019-02-11] MEDS: CLOPIDOGREL BISULFATE 75 MG TAB PO SCH (09:36)
[2019-02-11] MEDS: RIVAROXABAN 15 MG TABLET PO SCH (09:36)
[2019-02-11] MEDS: FOLIC ACID 1 MG TAB PO SCH ×2 (09:36→16:59)
[2019-02-11] MEDS: BUMETANIDE 1 MG TAB PO SCH ×2 (09:36→16:59)
[2019-02-11] MEDS: BACLOFEN 10 MG TAB PO SCH ×3 (09:36→20:13)
[2019-02-11] MEDS: CLOBETASOL PROPIONATE 0.05% CRM 15 GM TUBE TOP SCH (09:36)
[2019-02-11] MEDS: HYDROCHLOROTHIAZIDE 25 MG TAB PO SCH (09:36)
[2019-02-11] MEDS: METOPROLOL TARTRATE 25 MG TAB PO SCH ×2 (09:37→21:44)
[2019-02-11] MEDS: BUDESONIDE 0.5MG/2 ML NEB NEB SCH ×2 (11:00→20:20)
--- NOTE | 2019-02-11 11:18 | NUR ---
Wound Care Consultation - Follow Up Patient Admitted for Afib, Cellulitis BLE, Chronic Renal Insufficiency, COPD. HX: Afib, CHF, CKD, Liver Cirrosis, DM type 2, HTN, Hyperlipidemia, COPD. -Dr. Mcclelland on case for early pna tx. ( Plan of 5 days of Abx)- - BLE Arterial US - RLE- DPA 45 Tripahasic, LLE DPA 39 Biphasic. BLE arterial disease w/o evidence of significant arterial stenosis. - Echocardiogram - 55-60% EF. - States to have been using compression at home and lymphedema pumps but it got to the point where the swelling was above the knee and groin areas. He stopped using the wraps at home and feet and lower legs began to swell without resolving upper leg swelling. WC Consulted for BLE Blister evaluation. PATIENT VISIT: Patient AAOX4, Calm Cooperative. Presents with BLE Edema +3 at ankles. Noted nodules to anterior aspect of BLE. Dr. Gar ( Nephrology) on case. Swelling improved to BLE. Education reinforced today to elevate legs on pillows/ elevate foot of bed to reduce or prevent further swelling, verbalized understanding. States legs feel better today and can wiggle toes much easier today. Addendum: 02/11/19 at 1123 by Shlomo Faust RN Amended: Links added.
--- NOTE | 2019-02-11 12:54 | Progress Note ---
DATE: 02/11/2019 Cardiology Progress Note SUBJECTIVE: The patient reported burning chest pain overnight. He is currently pain-free. He denies any shortness of breath. OBJECTIVE: VITAL SIGNS: Temperature 96.2 degrees, pulse 78, respiratory rate 18, blood pressure 124/71, oxygen saturation 97% on 3 L nasal cannula. GENERAL: Awake, alert, in no acute distress. LUNGS: Clear to auscultation bilaterally. No wheezes or crackles. CARDIOVASCULAR: Normal rate, regular rhythm. No murmur. Normal S1, S2. ABDOMEN: Soft, nontender. EXTREMITIES: 2+ pitting edema bilaterally with erythema. CARDIAC MEDICATIONS: Metoprolol tartrate 25 mg p.o. q.12 hours, hydrochlorothiazide 50 mg p.o. daily, spironolactone 50 mg p.o. daily, Bumex 2 mg p.o. b.i.d., Xarelto 15 mg p.o. daily, metolazone 5 mg p.o. daily, liothyronine 5 mcg p.o. daily, Plavix 75 mg p.o. daily, aspirin 81 mg p.o. daily, levothyroxine 100 mcg p.o. daily. LABORATORY DATA: None today. Troponin 0.023. TELEMETRY: Atrial fibrillation. IMPRESSION: 1. Coronary artery disease status post recent stent. 2. Atrial fibrillation. 3. Chronic diastolic heart failure. 4. Hypertension. 5. Hyperlipidemia. 6. Cirrhosis by CT imaging. 7. Chronic kidney disease. RECOMMENDATIONS: Continue current cardiac medications. The patient's blood pressure has been stable. No evidence of myocardial infarction on serial cardiac biomarkers. Given his recent coronary evaluation, no further cardiac evaluation is indicated at this time unless he rules in. Volume management per Nephrology given chronic kidney disease, holding Xarelto for tunneled catheter removal, please resume once hemostasis is achieved. Monitor patient closely on telemetry while admitted. Thank you for this consult. We will continue to follow. Zenaida Randolph MD ABS/MODL /[id number]
[2019-02-11 13:44] LABS: CREATINE KINASE MB 2.5 ng/mL (0-5.0)
--- NOTE | 2019-02-11 14:32 | NUR ---
ST Note: MBS delayed until tomorrow 02/12/19. Spoke with pt/spouse and RN, Ita.
--- NOTE | 2019-02-11 19:15 | NUR ---
patient received awake, alert, sitting up on side of bed. no c/o pain noted. pm assessment complete. patient instructed to call for assistance when needed.
--- NOTE | 2019-02-11 19:17 | Consultation ---
DATE OF CONSULTATION: Gastroenterology Consultation REASON FOR CONSULTATION: Dysphagia. HISTORY OF PRESENT ILLNESS: Mr. Sharma is a pleasant 73-year-old man who previously has seen my colleague, Dr. Pan. At that time, he had an EGD and colonoscopy a few months back and was found to have a gastric ulcer. He had no symptoms at that time of the ulcer or dysphagia. He notes now that he has dysphagia as well as odynophagia for the past 4 days. Anything including especially cold water or any other fluids or beverages or foods cause pain in the lower retrosternal region. He feels that whatever he eats or drinks, passes slowly in that area. The pain is dull and sharp at times, sometimes burning, nonradiating, and moderate to severe. He has altered his diet because of this. He is here with pneumonia and has lower extremity chronic cellulitis. PHYSICAL EXAMINATION: GENERAL: Alert, oriented, in no acute distress. HEENT: Pupils equal, round, reactive to light. NECK: Supple. LUNGS: Coarse, decreased at the bases. CARDIOVASCULAR: S1 and S2. ABDOMEN: Soft, nontender, little bit protuberant with some excess gas. He had normal bowel sounds. EXTREMITIES: No clubbing or cyanosis. He has edema. PSYCHIATRIC: Calm, cooperative. NEUROLOGIC: Intact. HEM/ONC: No bruising or adenopathy. The electronic health records were reviewed for laboratory and radiologic studies as well as history. PAST MEDICAL HISTORY: Multiple; chronic atrial fibrillation, chronic COPD. SOCIAL HISTORY: No excess alcohol. FAMILY HISTORY: Noncontributory. ASSESSMENT: Dysphagia and odynophagia, corresponding esophageal symptoms. This is most likely acute inflammation, which could be from acid reflux or infectious process. PLAN: At this time, I recommend he be on Carafate and Protonix. He is going to have a barium swallow today. We will followup the results of that and see if any endoscopy will be required in the future. Thank you very much for asking us to see Mr. Sharma. Any questions or concerns, please do not hesitate to contact me. Santa Villeda MD RLS/ADRIANL /[id number] MTDD
[2019-02-11] MEDS: AZITHROMYCIN 500MG/NS 250 ML 250 ML IV SCH (20:00)
[2019-02-11] MEDS: LATANOPROST(OPTH) 2.5 ML BTL OU SCH (20:13)
[2019-02-11] MEDS: PRAMIPEXOLE DIHYDROCHLORIDE 0.25 MG TAB PO SCH (20:13)
[2019-02-11] MEDS: SERTRALINE HCL 50 MG TAB PO SCH (20:13)
[2019-02-11] MEDS: PANTOPRAZOLE SOD 40 MG TABEC PO SCH (20:13)
[2019-02-11] MEDS: ALPRAZOLAM 0.5 MG TAB PO SCH (20:13)
[2019-02-11] MEDS: ROPINIROLE HCL 0.25 MG TAB PO SCH (20:13)
[2019-02-11] MEDS: CHOLECALCIFEROL 1,000 UNIT TAB PO SCH (20:13)
[2019-02-11] MEDS: CEFTRIAXONE SOD 1 GM/NS 50 ML 50 ML IV SCH (21:00)
[2019-02-12] VITALS: BP 105/64
--- NOTE | 2019-02-12 | NUR ---
patient sitting up on side of bed. vss. no c/o pain noted.
--- NOTE | 2019-02-12 00:08 | Consultation ---
DATE OF CONSULTATION: Renal Consultation REASON FOR CONSULTATION: Chronic renal disease and volume overload. HISTORY OF PRESENT ILLNESS: A 73-year-old male with chronic kidney disease, cirrhosis, diabetes, hypertension, and COPD, who is well known to me from outpatient clinic, presented to [facility] with shortness of breath and cellulitis as well as multiple falls. The patient was just recently seen in my office and was significantly more swollen and more short of breath. His Bumex was increased and metolazone was added, at that time he weighed 251 pounds. The patient was started on clindamycin, however, he continued to feel worse and presented to [facility]. The patient was admitted for Pulmonary Infectious Disease and now Nephrology consultations were called. REVIEW OF SYSTEMS: A complete 14-point review of systems was done. All systems negative except for in the history of present illness. PAST MEDICAL HISTORY: 1. Chronic kidney disease, stage 3. 2. COPD. 3. Asthma. 4. Congestive heart failure. 5. Hypertension. 6. Diabetes. 7. Hypothyroidism. 8. BPH. 9. Parkinson's. PAST SURGICAL HISTORY: 1. Neck fusion, prostate laser surgery. 2. Pain pump placed. 3. Cataract surgery. 4. Vein ablation. SOCIAL HISTORY: No tobacco. No alcohol. No IV drugs. FAMILY HISTORY: No family history of kidney disease. ALLERGIES: NO KNOWN DRUG ALLERGIES. CURRENT MEDICATIONS: See list. PHYSICAL EXAMINATION: VITAL SIGNS: Blood pressure 102/62, pulse 70, respiratory rate 20, and temperature 96.2. GENERAL: No apparent distress. HEENT: Oropharynx clear. No scleral icterus. No peripheral edema. NECK: Supple. Difficult to assess jugular venous pressure. CHEST: Decreased breath sounds at bases bilaterally and posteriorly. CARDIOVASCULAR: Regular rhythm. ABDOMEN: Soft. Positive bowel sounds. No tenderness. No rebound. EXTREMITIES: No edema. No clubbing. No cyanosis. SKIN: Warm. LABORATORY DATA: Sodium 141, potassium 3, chloride 83, CO2 of 45, BUN 41, creatinine 1.72, calcium 10, phosphorus 3.1, magnesium 2.1, BNP 257 on admission. White count 6.85, hemoglobin 15, hematocrit 49, platelets 228. ASSESSMENT AND PLAN: 1. Chronic kidney disease, stage 3. Continue with current diuretics, we will not do any further workup. 2. Volume overload, much improved. The patient weighed 20 pounds more in my office. Continue with Bumex, metolazone, may add spironolactone depending on his potassium in the morning. Potassium was low yesterday. We will discontinue hydrochlorothiazide and may increase spironolactone depending on his a.m. labs. 3. Coronary artery disease, Cardiology following. 4. Hypertension. Blood pressure controlled. 5. Antibiotics per Infectious Disease. MD WES Franco/STEVE /[id number]
[2019-02-12] MEDS: LEVALBUTEROL HCL SOLN NEBU 0.63 MG/3 ML NEB INH SCH ×7 (03:00→22:40)
[2019-02-12] MEDS: IPRATROPIUM BROMIDE 0.02% 2.5 ML NEB NEB SCH ×7 (03:00→22:40)
--- NOTE | 2019-02-12 03:00 | NUR ---
patient refuses 0300 blood draw at this time. patient agrees to let lab draw blood at 0500.
--- NOTE | 2019-02-12 03:48 | Progress Note ---
DATE: 02/11/2019 Pulmonary Medicine Progress Note SUBJECTIVE: Mr. Sharma was seen and examined at bedside. He continues to have slow progress. The patient does have decreased shortness of breath today. Remains on oxygen at this time, 4 L/minute by nasal cannula. He is eating. He is having bowel movements. REVIEW OF SYSTEMS: No chest pain, no bleeding. OBJECTIVE: VITAL SIGNS: Afebrile, vital signs noted per the chart record. GENERAL: In no acute distress, alert and calm. HEENT: Normocephalic, atraumatic. NECK: Supple. Throat midline. LUNGS: Bilateral air entry with few rhonchi, few wheezes. CARDIOVASCULAR: S1, S2. No murmurs, rubs, or gallops. ABDOMINAL EXAM: Soft, nontender. EXTREMITIES: No clubbing, no cyanosis. There is 2 to 3+ edema. INTEGUMENT: No rash or purpura. IMPRESSION AND PLAN: 1. Chronic obstructive pulmonary disease with mild exacerbation. 2. Concomitant asthma. 3. Fluid overload. 4. Possible mild pneumonia. 5. Mild obstructive sleep apnea. 6. Severe periodic limb movements of sleep disorder. 7. Debility. 8. Ankylosing spondylitis. 9. Chronic kidney disease. 10. Atrial fibrillation history. Continue mobilizing with therapy. For now manage with the antibiotics. Continue diuretics. Bronchodilators. . We will follow along closely as he tried to get better. MD BREANNA Paulino/STEVE /[id number]
[2019-02-12 04:00] VITALS: BP 107/62
[2019-02-12] MEDS: LEVOTHYROXINE SODIUM 100 MCG TAB PO SCH (05:17)
[2019-02-12 06:19] LABS: BASOPHILS # (AUTO) 0.1 (0.0-0.1); BASOPHILS % 0.7 % (0.0-1.0); EOSINOPHILS # (AUTO) 0.3 (0.0-0.4); EOSINOPHILS % 3.5 % (0.0-6.0); HEMATOCRIT 49.4 % (38.2-49.6); HEMOGLOBIN 15.4 g/dL (14.0-18.0); LYMPHOCYTES % 14.5 % (18.0-39.1); MEAN CORPUSCULAR HEMOGLOBIN 27.3 pg (28-32); MEAN CORPUSCULAR HGB CONC 31.2 g/dL (31-35); MEAN CORPUSCULAR VOLUME 87.4 fL (81-99); MONOCYTES # (AUTO) 0.8 (0.2-0.8); MONOCYTES % 11.3 % (4.4-11.3); NEUTROPHILS % 69.3 % (38.7-80.0); PLATELET COUNT 234 x10e3/uL (140-360); RED BLOOD COUNT 5.65 x10e6/uL (4.3-5.7); RED CELL DISTRIBUTION WIDTH 15.7 % (11.7-14.4)
[2019-02-12 06:39] LABS: ANION GAP 17.4 mmol/L (8-16); CALCIUM 9.9 mg/dL (8.4-10.2); CREATININE, SERUM 2.01 mg/dL (0.72-1.25); MAGNESIUM 2.3 MG/DL (1.3-2.1); PHOSPHORUS 3.5 MG/DL (2.3-4.7); POTASSIUM 3.4 mmol/L (3.5-5.1)
[2019-02-12 07:02] LABS: FREE T4 (FREE THYROXINE) 0.92 ng/dL (0.9-1.8); THYROID STIMULATING HORMONE 1.875 uIU/mL (0.350-4.940)
--- NOTE | 2019-02-12 07:27 | NUR ---
PATIENT SITTING AT BED SIDE, MODIFIED BARIUM SWALLOWING IN PROGRESS. BED IN LOWER POSITION, CALL LIGHT AT REACH.
[2019-02-12 07:30] VITALS: BP 126/61
[2019-02-12] MEDS: SUCRALFATE 1 GM TAB PO SCH ×3 (08:01→16:47)
--- NOTE | 2019-02-12 08:47 | Diagnostic Imaging Report ---
EXAM: Modified barium swallow with Speech Pathologist INDICATION: ^cristobal PNA ^[id number] ^[id number] ^Y COMPARISON: None available. RADIATION DOSE: Fluoroscopy Time: 1 min 23 seconds Dose (Kerma) Area Product: 788.1 cGycm2 Air Kerma (AK) value has been reviewed. It is below the limits set by the Radiation Protocol Committee (RPC) committee. FINDINGS: See impression IMPRESSION: Laryngeal penetration was noted with administration of thin liquid. Trace silent aspiration was also noted with thin liquids. Refer to speech pathology report for further details and recommendations. Signed by: Dr. Nilo De Luna M.D. on 02/12/2019 8:44 AM
[2019-02-12] MEDS: BUDESONIDE 0.5MG/2 ML NEB NEB SCH ×2 (08:59→17:00)
[2019-02-12] MEDS: ACLOVATE SCH (09:00)
[2019-02-12] MEDS: NON-FORMULARY MEDICATION (Mirabegron (Myrbetriq) 50 MG) PO SCH (09:00)
[2019-02-12] MEDS: GUAIFENESIN 200 MG/10 ML UDC PO SCH ×2 (09:00→17:00)
[2019-02-12] MEDS: SPIRONOLACTONE 25 MG TAB PO SCH (09:11)
[2019-02-12] MEDS: CYANOCOBALAMIN 1,000 MCG TAB PO SCH (09:12)
[2019-02-12] MEDS: CLOBETASOL PROPIONATE 0.05% CRM 15 GM TUBE TOP SCH (09:12)
[2019-02-12] MEDS: ASPIRIN 81 MG CHEW TAB PO SCH (09:12)
[2019-02-12] MEDS: CLOPIDOGREL BISULFATE 75 MG TAB PO SCH (09:12)
[2019-02-12] MEDS: BACLOFEN 10 MG TAB PO SCH ×3 (09:12→21:18)
[2019-02-12] MEDS: LIOTHYRONINE SODIUM 5 MCG TAB PO SCH (09:12)
[2019-02-12] MEDS: HYDROCHLOROTHIAZIDE 25 MG TAB PO SCH (09:12)
[2019-02-12] MEDS: FOLIC ACID 1 MG TAB PO SCH ×2 (09:12→17:15)
[2019-02-12] MEDS: BUMETANIDE 1 MG TAB PO SCH ×2 (09:12→17:15)
[2019-02-12] MEDS: METOLAZONE 5 MG TAB PO SCH (09:12)
--- NOTE | 2019-02-12 09:45 | NUR ---
PATIENT OFF UNIT TO OR. Addendum: 02/12/19 at 0987 by Johnnie Mena RN WRONG PATIENT
[2019-02-12] MEDS: METOPROLOL TARTRATE 25 MG TAB PO SCH ×2 (10:47→22:15)
--- NOTE | 2019-02-12 11:20 | NUR ---
PATIENT OUT OF BEDS TO RECLINING CHAIR WATCHING TV, NO COMPLAIN VOICED. CALL LIGHT AT REACH.
--- NOTE | 2019-02-12 11:22 | NUR ---
Wound Care Consultation - Follow Up Patient Admitted for Afib, Cellulitis BLE, Chronic Renal Insufficiency, COPD. HX: Afib, CHF, CKD, Liver Cirrosis, DM type 2, HTN, Hyperlipidemia, COPD. -Dr. Mcclelland on case for early pna tx. ( Plan of 5 days of Abx)- - BLE Arterial US - RLE- DPA 45 Tripahasic, LLE DPA 39 Biphasic. BLE arterial disease w/o evidence of significant arterial stenosis. - Echocardiogram - 55-60% EF. - States to have been using compression at home and lymphedema pumps but it got to the point where the swelling was above the knee and groin areas. He stopped using the wraps at home and feet and lower legs began to swell without resolving upper leg swelling. WC Consulted for BLE Blister evaluation. PATIENT VISIT: Patient AAOX4, Calm Cooperative. Presents with BLE Edema +3 at ankles. - Stable Today. Noted nodules to anterior aspect of BLE. Dr. Gar ( Nephrology) on case. Swelling improved to BLE. IMPRESSION- BLE Anterior @ [facility]- Nodules. Non- Fluid Filled. Hardened. (Improving). Education reinforced today to elevate legs on pillows/ elevate foot of bed to reduce or prevent further swelling, verbalized understanding. States legs feel better today and can wiggle toes much easier today. Addendum: 02/12/19 at 1135 by Shlomo Faust RN Amended: Links added.
[2019-02-12 11:23] VITALS: BP 104/64
[2019-02-12] MEDS ORDERED: POTASSIUM CHLORIDE 20 MEQ TAB CR PO ONE (12:30)
--- NOTE | 2019-02-12 13:35 | Progress Note ---
DATE: 02/12/2019 Cardiology Progress Note SUBJECTIVE: The patient denies chest pain or shortness of breath. OBJECTIVE: VITAL SIGNS: Temperature 97.8 degrees, pulse 76, respiratory rate 18, blood pressure 107/62, oxygen saturation 97% on 3 L nasal cannula. GENERAL: Awake, alert, in no acute distress. LUNGS: Clear to auscultation bilaterally. No wheezes or crackles. CARDIOVASCULAR: Normal rate, regular rhythm. No murmur. Normal S1, S2. ABDOMEN: Soft, nontender. EXTREMITIES: 2+ pitting edema, bilaterally with erythema. CARDIAC MEDICATIONS: Hydrochlorothiazide 50 mg p.o. daily, Bumex 2 mg p.o. b.i.d., metolazone 5 mg p.o. daily, liothyronine 5 mcg p.o. daily, Plavix 75 mg p.o. daily, aspirin 81 mg p.o. daily, spironolactone 50 mg p.o. daily, metoprolol tartrate 25 mg p.o. q.12 hours. LABORATORY DATA: WBC 7.15, hemoglobin 15.4, hematocrit 49.4, platelets 234. Sodium 144, potassium 3.4, chloride 91, CO2 of 39, BUN 54, creatinine 2.01. BNP 160. Modified barium swallow, laryngeal penetration was noted with administration of thin liquid, trace silent aspiration was also noted with thin liquids. Refer to speech pathology report for further details and recommendations. TELEMETRY: Atrial fibrillation. IMPRESSION: 1. Coronary artery disease status post recent stent. 2. Atrial fibrillation. 3. Chronic diastolic heart failure. 4. Hypertension. 5. Hyperlipidemia. 6. Cirrhosis by CT imaging. 7. Chronic kidney disease. RECOMMENDATIONS: Continue current cardiac medications. The patient's blood pressure has been stable. No evidence of myocardial infarction on serial cardiac biomarkers. Given his recent coronary evaluation, no further cardiac evaluation is indicated at this time. Consider evaluation for noncardiac etiologies of chest pain. Volume management per Nephrology given his chronic kidney disease, Xarelto can be held for tunneled PICC removal. Please resume once hemostasis is achieved. However, aspirin and Plavix cannot be held given his recent stents. Monitor patient closely on telemetry while admitted. Thank you for this consult. We will continue to follow. MD ROB Ceballos/MODL /[id number]
--- NOTE | 2019-02-12 15:08 | NUR ---
PATIENT ASSISTED WITH SHOWER AND BACK TO RECLINING CHAIR. ALL PERSONAL ITEMS CLOSE TO PATIENT. CALL LIGHT AT REACH.
[2019-02-12 15:16] VITALS: BP 102/61
--- NOTE | 2019-02-12 16:46 | Progress Note ---
DATE: 02/12/2019 Pulmonary Medicine Progress Note SUBJECTIVE: Mr. Sharma was seen and examined at bedside. 4 L/minute of oxygen. Still with some leg edema about the same. He ate well. He started to mobilize a little bit more. REVIEW OF SYSTEMS: No headaches, no GI bleed. OBJECTIVE: VITAL SIGNS: Afebrile, vital signs noted per the chart record. GENERAL: No acute distress, alert and calm. HEENT: Normocephalic, atraumatic. NECK: Supple. Throat midline. LUNGS: Bilateral air entry, few rhonchi. CARDIOVASCULAR: S1, S2. No murmurs, rubs, or gallops. ABDOMEN: Soft, nontender. EXTREMITIES: No clubbing, no cyanosis, there is still 2 to 3+ edema in legs. INTEGUMENT: No rash. Slight weeping legs, mildly. LABORATORY DATA: Include 2.4 potassium, 2.01 creatinine. 7 white count, 49 hematocrit, 234 platelets. IMPRESSION AND PLAN: 1. Hypokalemia. 2. Weakness, debility. 3. Dysphagia. 4. Possible mild pneumonia. 5. Chronic obstructive pulmonary disease, very severe. 6. Mild obstructive sleep apnea. 7. Severe periodic limb movements of sleep. Replete potassium. Tunneled PICC line is scheduled for removal. Continue oxygen support. Continue diuretics for edema. Mobilize him and offset legs when it is convenient to gravity for edema. As usual when he comes to the hospital he forgoes BiPAP treatment, was on short term. MD BREANNA Paulino/MODL /[id number]
[2019-02-12 20:00] VITALS: BP 90/61
[2019-02-12] MEDS: AZITHROMYCIN 500MG/NS 250 ML 250 ML IV SCH (20:26)
[2019-02-12] MEDS: LATANOPROST(OPTH) 2.5 ML BTL OU SCH (21:18)
[2019-02-12] MEDS: SERTRALINE HCL 50 MG TAB PO SCH (21:18)
[2019-02-12] MEDS: CHOLECALCIFEROL 1,000 UNIT TAB PO SCH (21:18)
[2019-02-12] MEDS: PRAMIPEXOLE DIHYDROCHLORIDE 0.25 MG TAB PO SCH (21:18)
[2019-02-12] MEDS: PANTOPRAZOLE SOD 40 MG TABEC PO SCH (21:18)
[2019-02-12] MEDS: ROPINIROLE HCL 0.25 MG TAB PO SCH (21:18)
[2019-02-12] MEDS: ALPRAZOLAM 0.5 MG TAB PO SCH (21:18)
--- NOTE | 2019-02-12 21:18 | NUR ---
BLOOD PRESSURE REASSESSED WITH READING OF 101/59, HEART RATE 80. PATIENT LEGS ELEVATED TO DECREASE THE SWELLING TO THE LEGS.
[2019-02-12] MEDS: CEFTRIAXONE SOD 1 GM/NS 50 ML 50 ML IV SCH (21:41)
--- NOTE | 2019-02-13 00:42 | NUR ---
PATIENT REFUSED TO HAVE VITAL SIGNS ASSESS, NO ACUTE DISTRESS OBSERVED AND HE DENIES PAIN. URINAL AND CALL LIGHT WITHIN EASY REACH.
[2019-02-13] MEDS: LEVALBUTEROL HCL SOLN NEBU 0.63 MG/3 ML NEB INH SCH ×6 (02:35→23:00)
[2019-02-13] MEDS: IPRATROPIUM BROMIDE 0.02% 2.5 ML NEB NEB SCH ×7 (02:35→23:00)
--- NOTE | 2019-02-13 03:40 | NUR ---
PATIENT IS ASLEEP, HE'S EASY TO AROUSE. NO RESPIRATORY DISTRESS OBSERVE, HE DENIES PAIN. URINAL AND CALL LIGHT WITHIN EASY REACH.
[2019-02-13 04:00] VITALS: BP 113/67
[2019-02-13] MEDS: LEVOTHYROXINE SODIUM 100 MCG TAB PO SCH (05:37)
[2019-02-13 06:11] LABS: BASOPHILS # (AUTO) 0.1 (0.0-0.1); BASOPHILS % 0.7 % (0.0-1.0); EOSINOPHILS # (AUTO) 0.2 (0.0-0.4); EOSINOPHILS % 2.7 % (0.0-6.0); HEMATOCRIT 50.9 % (38.2-49.6); HEMOGLOBIN 15.7 g/dL (14.0-18.0); LYMPHOCYTES # (AUTO) 1.3 (1.0-3.2); LYMPHOCYTES % 17.8 % (18.0-39.1); MEAN CORPUSCULAR HEMOGLOBIN 27.8 pg (28-32); MEAN CORPUSCULAR HGB CONC 30.8 g/dL (31-35); MEAN CORPUSCULAR VOLUME 90.1 fL (81-99); MONOCYTES # (AUTO) 0.9 (0.2-0.8); MONOCYTES % 13.1 % (4.4-11.3); NEUTROPHILS # (AUTO) 4.6 (2.1-6.9); NEUTROPHILS % 65.1 % (38.7-80.0); PLATELET COUNT 234 x10e3/uL (140-360); RED BLOOD COUNT 5.65 x10e6/uL (4.3-5.7); RED CELL DISTRIBUTION WIDTH 15.9 % (11.7-14.4)
[2019-02-13 06:39] LABS: ANION GAP 14.6 mmol/L (8-16); CALCIUM 9.9 mg/dL (8.4-10.2); CREATININE, SERUM 2.21 mg/dL (0.72-1.25); MAGNESIUM 2.4 MG/DL (1.3-2.1); POTASSIUM 3.6 mmol/L (3.5-5.1)
[2019-02-13 07:25] VITALS: BP 118/68
--- NOTE | 2019-02-13 07:25 | NUR ---
PATIENT IN BED WITH HEAD OF BED ELEVATED RECEIVING NEB TREATMENT. URINAL EMPTIED AND CLEANSED. BED IN LOWER POSITION, CALL LIGHT AT REACH.
[2019-02-13 07:34] VITALS: BP 113/68
[2019-02-13] MEDS: SUCRALFATE 1 GM TAB PO SCH ×3 (07:55→16:30)
[2019-02-13] MEDS: BUDESONIDE 0.5MG/2 ML NEB NEB SCH ×2 (08:21→17:00)
[2019-02-13] MEDS: ACLOVATE SCH (09:00)
[2019-02-13] MEDS: GUAIFENESIN 200 MG/10 ML UDC PO SCH ×2 (09:00→17:00)
[2019-02-13] MEDS: NON-FORMULARY MEDICATION (Mirabegron (Myrbetriq) 50 MG) PO SCH (09:00)
[2019-02-13] MEDS: SPIRONOLACTONE 25 MG TAB PO SCH (09:12)
[2019-02-13] MEDS: LIOTHYRONINE SODIUM 5 MCG TAB PO SCH (09:12)
[2019-02-13] MEDS: ASPIRIN 81 MG CHEW TAB PO SCH (09:12)
[2019-02-13] MEDS: BUMETANIDE 1 MG TAB PO SCH ×2 (09:12→17:02)
[2019-02-13] MEDS: FOLIC ACID 1 MG TAB PO SCH ×2 (09:12→17:02)
[2019-02-13] MEDS: CLOPIDOGREL BISULFATE 75 MG TAB PO SCH (09:13)
[2019-02-13] MEDS: POTASSIUM CHLORIDE 20 MEQ TAB CR PO SCH (09:13)
[2019-02-13] MEDS: BACLOFEN 10 MG TAB PO SCH ×3 (09:13→21:46)
[2019-02-13] MEDS: CYANOCOBALAMIN 1,000 MCG TAB PO SCH (09:13)
[2019-02-13] MEDS: CLOBETASOL PROPIONATE 0.05% CRM 15 GM TUBE TOP SCH (09:43)
[2019-02-13] MEDS: METOPROLOL TARTRATE 25 MG TAB PO SCH ×2 (10:15→21:47)
[2019-02-13 11:19] VITALS: BP 119/71
--- NOTE | 2019-02-13 11:23 | NUR ---
PATIENT SITTING AT BED SIDE TALKING TO FAMILY MEMBERS VISITING, NO COMPLAIN VOICED. CALL LIGHT AT REACH.
--- NOTE | 2019-02-13 14:10 | Progress Note ---
DATE: 02/13/2019 Cardiology Progress Note SUBJECTIVE: The patient denies chest pain or shortness of breath. OBJECTIVE: VITAL SIGNS: Temperature 96.1 degrees, pulse 77, respiratory rate 18, blood pressure 119/71, and oxygen saturation 94% on 5 L nasal cannula. GENERAL: Awake, alert, in no acute distress. LUNGS: Clear to auscultation bilaterally with no wheezes or crackles. CARDIOVASCULAR: Normal rate. Regular rhythm. No murmur. Normal S1, S2. ABDOMEN: Soft, nontender. EXTREMITIES: 2+ pitting edema bilaterally with erythema. CARDIAC MEDICATIONS: Plavix 75 mg p.o. daily, spironolactone 50 mg p.o. daily, Bumex 2 mg p.o. b.i.d., liothyronine 5 mcg p.o. daily, aspirin 81 mg p.o. daily, and levothyroxine 100 mcg p.o. daily. LABORATORY DATA: WBC 7.03, hemoglobin 15.7, hematocrit 50.9, platelets 234. Sodium 139, potassium 3.6, chloride 85, CO2 of 43, BUN 64, creatinine 2.21. BNP 150. TELEMETRY: Atrial fibrillation. IMPRESSION: 1. Coronary artery disease status post recent stent. 2. Atrial fibrillation. 3. Chronic diastolic heart failure. 4. Hypertension. 5. Hyperlipidemia. 6. Cirrhosis by CT imaging. 7. Acute on chronic kidney disease. RECOMMENDATIONS: Continue current cardiac medications. The patient's blood pressure has been stable. No evidence of myocardial portion on serial cardiac biomarkers. Given his recent coronary evaluation, no further cardiac evaluation is indicated at this time as long as troponin remains negative. Continue dual antiplatelet therapies given the patient's very recent stents, these cannot be stopped. Consider evaluation for noncardiac etiologies of chest pain. Volume management per Nephrology given his chronic kidney disease. Xarelto has been held for tunneled PICC removal, please resume once hemostasis is achieved. Monitor the patient closely on telemetry. Thank you for this consult. We will continue to follow. Zenaida Randolph MD ABS/MODL /[id number]
[2019-02-13 15:33] VITALS: BP 127/64
--- NOTE | 2019-02-13 16:06 | NUR ---
PATIENT REQUESTED AND RECEIVED A CUP OF ICE WATER. THICKENER AND MEASUREMENT CUP PROVIDED. BED IN LOWER POSITION, CALL LIGHT AT REACH.
--- NOTE | 2019-02-13 19:57 | Progress Note ---
DATE: 02/13/2019 Pulmonary Medicine Progress Note SUBJECTIVE: Mr. Sharma was seen and examined at bedside. He continues to have slow progress. Leg edema is coming down. He is on 6 L/minute nasal cannula oxygen. He had a bowel movement yesterday. He is eating. REVIEW OF SYSTEMS: No headache, no double vision. OBJECTIVE: VITAL SIGNS: Afebrile, vital signs noted per the chart record. GENERAL: No acute distress. Alert and calm. HEENT: Normocephalic, atraumatic. NECK: Supple. Throat midline. LUNGS: Bilateral air entry, few wheezes, small rhonchi. CARDIOVASCULAR: S1, S2. No murmurs, rubs, or gallops. ABDOMEN: Soft, nontender. EXTREMITIES: No clubbing, no cyanosis. There is 2 to 3+ edema of the legs. INTEGUMENT: No rash. No purpura. LABORATORY DATA: 64 BUN, 2.2 creatinine. 7 white count, 51 hematocrit, 234 platelets. IMPRESSION AND PLAN: 1. Fluid overload. 2. Chronic obstructive pulmonary disease with mild exacerbation. 3. Obstructive sleep apnea, mild. 4. Severe periodic limb movements of sleep. 5. Weakness, debility. 6. Diastolic congestive heart failure. 7. Coronary artery disease. At this time, continue weaning oxygen. Try to get him below the 6 L/minute threshold. The patient still needs continued bronchodilators. Continue inhaled, steroids. Inpatient BiPAP/CPAP deferred as his sleep apnea is mild. Continue medicines for periodic limb movements in sleep. MD BREANNA Paulino/MODL /[id number]
[2019-02-13 20:00] VITALS: BP 133/76
--- NOTE | 2019-02-13 20:15 | NUR ---
PATIENT SITTING AT THE SIDE OF THE BED, NO ACUTE DISTRESS OBSERVED. HE DENIES PAIN, ASSISTED WITH ADLS, CALL LIGHT WITHIN EASY REACH.
[2019-02-13] MEDS: ALPRAZOLAM 0.5 MG TAB PO SCH (21:46)
[2019-02-13] MEDS: CHOLECALCIFEROL 1,000 UNIT TAB PO SCH (21:46)
[2019-02-13] MEDS: LATANOPROST(OPTH) 2.5 ML BTL OU SCH (21:46)
[2019-02-13] MEDS: PRAMIPEXOLE DIHYDROCHLORIDE 0.25 MG TAB PO SCH (21:46)
[2019-02-13] MEDS: PANTOPRAZOLE SOD 40 MG TABEC PO SCH (21:46)
[2019-02-13] MEDS: SERTRALINE HCL 50 MG TAB PO SCH (21:46)
[2019-02-13] MEDS: ROPINIROLE HCL 0.25 MG TAB PO SCH (21:46)
[2019-02-14] VITALS (8 sets, daily range): BP systolic 105–140; BP diastolic 57–84
--- NOTE | 2019-02-14 00:58 | NUR ---
PATIENT IS ASLEEP, HE'S EASY TO AROUSE. HE DENIES PAIN, CALL LIGHT WITHIN EASY REACH.
[2019-02-14] MEDS: LEVALBUTEROL HCL SOLN NEBU 0.63 MG/3 ML NEB INH SCH ×5 (02:25→20:15)
[2019-02-14] MEDS: IPRATROPIUM BROMIDE 0.02% 2.5 ML NEB NEB SCH ×5 (02:25→20:15)
--- NOTE | 2019-02-14 03:45 | NUR ---
PATIENT IS ASLEEP, HE'S EASY TO AROUSE. NO RESPIRATORY DISTRESS OBSERVED, HE DENIES PAIN. CALL LIGHT AND URINAL WITHIN EASY REACH.
[2019-02-14] MEDS: LEVOTHYROXINE SODIUM 100 MCG TAB PO SCH (05:29)
[2019-02-14] MEDS ORDERED: COSENTYX IM SCH (06:00)
[2019-02-14 06:40] LABS: BASOPHILS # (AUTO) 0.1 (0.0-0.1); BASOPHILS % 0.7 % (0.0-1.0); EOSINOPHILS # (AUTO) 0.2 (0.0-0.4); EOSINOPHILS % 2.8 % (0.0-6.0); HEMOGLOBIN 16.4 g/dL (14.0-18.0); LYMPHOCYTES # (AUTO) 1.3 (1.0-3.2); LYMPHOCYTES % 19.1 % (18.0-39.1); MEAN CORPUSCULAR HEMOGLOBIN 27.6 pg (28-32); MEAN CORPUSCULAR HGB CONC 30.4 g/dL (31-35); MEAN CORPUSCULAR VOLUME 90.9 fL (81-99); MONOCYTES # (AUTO) 0.9 (0.2-0.8); NEUTROPHILS # (AUTO) 4.4 (2.1-6.9); PLATELET COUNT 260 x10e3/uL (140-360); RED BLOOD COUNT 5.94 x10e6/uL (4.3-5.7); RED CELL DISTRIBUTION WIDTH 16.1 % (11.7-14.4)
[2019-02-14 06:58] LABS: ANION GAP 17.2 mmol/L (8-16); CALCIUM 10.4 mg/dL (8.4-10.2); CREATININE, SERUM 2.06 mg/dL (0.72-1.25); MAGNESIUM 2.9 MG/DL (1.3-2.1); POTASSIUM 4.2 mmol/L (3.5-5.1)
--- NOTE | 2019-02-14 07:23 | NUR ---
PATIENT IN BED RESTING WITH NO RESPIRATORY DISTRESS. O2 IN PLACE VIA N/C. BED IN LOWER POSITION, CALL LIGHT AT REACH.
[2019-02-14] MEDS: SUCRALFATE 1 GM TAB PO SCH ×3 (07:56→16:30)
[2019-02-14] MEDS ORDERED: PSYLLIUM 6GM PACKET PO PRN (08:00)
[2019-02-14] MEDS ORDERED: BISACODYL 5 MG TAB EC PO NR (08:15)
[2019-02-14] MEDS: BUDESONIDE 0.5MG/2 ML NEB NEB SCH ×2 (09:00→20:15)
[2019-02-14] MEDS: GUAIFENESIN 200 MG/10 ML UDC PO SCH ×2 (09:00→17:00)
[2019-02-14] MEDS: NON-FORMULARY MEDICATION (Mirabegron (Myrbetriq) 50 MG) PO SCH (09:00)
[2019-02-14] MEDS: ACLOVATE SCH (09:00)
[2019-02-14] MEDS: LIOTHYRONINE SODIUM 5 MCG TAB PO SCH (10:07)
[2019-02-14] MEDS: CYANOCOBALAMIN 1,000 MCG TAB PO SCH (10:07)
[2019-02-14] MEDS: ASPIRIN 81 MG CHEW TAB PO SCH (10:07)
[2019-02-14] MEDS: CLOPIDOGREL BISULFATE 75 MG TAB PO SCH (10:07)
[2019-02-14] MEDS: FOLIC ACID 1 MG TAB PO SCH ×2 (10:07→17:29)
[2019-02-14] MEDS: BUMETANIDE 1 MG TAB PO SCH ×2 (10:07→17:29)
[2019-02-14] MEDS: POTASSIUM CHLORIDE 20 MEQ TAB CR PO SCH (10:07)
[2019-02-14] MEDS: SPIRONOLACTONE 25 MG TAB PO SCH (10:07)
[2019-02-14] MEDS: BACLOFEN 10 MG TAB PO SCH ×3 (10:07→21:21)
[2019-02-14] MEDS: DOCUSATE SODIUM 100 MG CAP PO SCH ×2 (10:07→17:29)
[2019-02-14] MEDS: CLOBETASOL PROPIONATE 0.05% CRM 15 GM TUBE TOP SCH (10:07)
[2019-02-14] MEDS: METOPROLOL TARTRATE 25 MG TAB PO SCH ×2 (10:15→21:22)
--- NOTE | 2019-02-14 12:29 | NUR ---
PATIENT ASSISTED WITH SHOWER AND BACK TO BED. CORPORATE TAX PREPARER APPLIED. BED IN LOWER POSITION, CALL LIGHT AT REACH.
--- NOTE | 2019-02-14 14:05 | Progress Note ---
DATE: 02/14/2019 Cardiology Progress Note SUBJECTIVE: The patient denies chest pain, but he does note pain when he swallows. He denies shortness of breath. OBJECTIVE: VITAL SIGNS: Temperature 95 degrees, pulse 80, respiratory rate 20, blood pressure 113/68, and oxygen saturation 100% on 6 L nasal cannula. GENERAL: Awake, alert, in no acute distress. LUNGS: Clear to auscultation bilaterally. No wheezes or crackles. CARDIOVASCULAR: Normal rate. Regular rhythm. No murmur. Normal S1, S2. ABDOMEN: Soft, nontender. EXTREMITIES: 1+ pitting edema bilaterally with erythema. CARDIAC MEDICATIONS: Spironolactone 50 mg p.o. daily, Bumex 2 mg p.o. b.i.d., liothyronine 5 mcg p.o. daily, Plavix 75 mg p.o. daily, aspirin 81 mg p.o. daily, levothyroxine 100 mcg p.o. daily, metoprolol tartrate 25 mg p.o. q.12 hours. LABORATORY DATA: WBC 6.85, hemoglobin 16.4, hematocrit 54, platelets 260. Sodium 140, potassium 4.2, chloride 84, CO2 of 43, BUN 62, creatinine 2.06. BNP 135. TELEMETRY: Atrial fibrillation. IMPRESSION: 1. Coronary artery disease status post recent stent. 2. Atrial fibrillation. 3. Chronic diastolic heart failure. 4. Hypertension. 5. Hyperlipidemia. 6. Cirrhosis by CT imaging. 7. Acute on chronic kidney disease. RECOMMENDATIONS: Continue current cardiac medications. The patient's blood pressure has been stable. No evidence of myocardial infarction was seen on serial cardiac biomarkers. Continue dual antiplatelet therapy given his very recent stents. No further cardiac evaluation is indicated at this time. Volume management per Nephrology given his chronic kidney disease. Holding Xarelto for tunneled PICC removal, please resume once hemostasis is achieved from a procedure standpoint. Keep the patient on telemetry. Thank you for this consult. We will continue to follow. Zenaida Randolph MD ABS/MODL /[id number]
--- NOTE | 2019-02-14 15:56 | NUR ---
WALKING ROUND MADE, PATIENT PROVIDED WITH A CUP OF WATER AND SOME THICKENER, URINAL EMPTIED. BED IN LOWER POSITION, CALL LIGHT AT REACH.
[2019-02-14] MEDS: LATANOPROST(OPTH) 2.5 ML BTL OU SCH (21:00)
[2019-02-14] MEDS: PRAMIPEXOLE DIHYDROCHLORIDE 0.25 MG TAB PO SCH (21:21)
[2019-02-14] MEDS: PANTOPRAZOLE SOD 40 MG TABEC PO SCH (21:21)
[2019-02-14] MEDS: SERTRALINE HCL 50 MG TAB PO SCH (21:21)
[2019-02-14] MEDS: ROPINIROLE HCL 0.25 MG TAB PO SCH (21:21)
[2019-02-14] MEDS: CHOLECALCIFEROL 1,000 UNIT TAB PO SCH (21:21)
[2019-02-14] MEDS: ALPRAZOLAM 0.5 MG TAB PO SCH (21:21)
--- NOTE | 2019-02-14 23:40 | NUR ---
PATIENT IS ASLEEP, HE'S EASY TO AROUSE. NO RESPIRATORY DISTRESS OBSERVED. URINAL AND CALL LIGHT WITHIN EASY REACH.
--- NOTE | 2019-02-14 23:52 | Progress Note ---
DATE: 02/14/2019 Pulmonary Medicine Progress Note SUBJECTIVE: Mr. Sharma was seen and examined at bedside. He continues to have slow progress. 6 L/minute by nasal cannula, 90% oxygen saturation. Right IJ line in place. The patient remains with good eating. Edema in legs is improving. REVIEW OF SYSTEMS: No bleeding. No constipation. OBJECTIVE: VITAL SIGNS: Afebrile, vital signs noted per the chart record. GENERAL: In no acute distress, alert and calm. HEENT: Normocephalic, atraumatic. NECK: Supple. Throat midline. LUNGS: Bilateral air entry, decreased breath sounds mildly, few rhonchi. CARDIOVASCULAR: S1 and S2. No murmurs, rubs, or gallops. ABDOMEN: Soft, nontender. EXTREMITIES: No clubbing. No cyanosis. There is 2+ edema in the legs. INTEGUMENT: No rash. There is a venous stasis changes in the legs. LABORATORY DATA: Potassium 4.2, BUN 62, creatinine 2.1. White count 7, hematocrit 54, and platelets 260. IMPRESSION AND PLAN: 1. Chronic obstructive pulmonary disease with mild exacerbation. 2. Mild obstructive sleep apnea. 3. Severe periodic limb movements in sleep. 4. Fluid overload. 5. Lymphedema. 6. Chronic hypoxemia, on 2 to 4 L outpatient oxygen. 7. Diastolic heart failure, acute on chronic. Continue diuretics. Supplemental oxygen will be continued and I discussed with RT to continue down titrating the oxygen level. The patient's tunneled vascular access removed yesterday. Thereafter, the patient may be able to be discharged if he continues to get better. Continue mobilizing. Offset leg to gravity to reduce edema. Continue bronchodilators. MD BREANNA Paulino/MODL /[id number]
[2019-02-15] MEDS: LEVALBUTEROL HCL SOLN NEBU 0.63 MG/3 ML NEB INH SCH ×4 (00:15→10:45)
[2019-02-15] MEDS: IPRATROPIUM BROMIDE 0.02% 2.5 ML NEB NEB SCH ×4 (00:15→10:45)
[2019-02-15] MEDS: LEVOTHYROXINE SODIUM 100 MCG TAB PO SCH (05:36)
[2019-02-15 06:09] VITALS: BP 121/78
[2019-02-15 06:16] LABS: BASOPHILS # (AUTO) 0.1 (0.0-0.1); EOSINOPHILS # (AUTO) 0.2 (0.0-0.4); EOSINOPHILS % 2.1 % (0.0-6.0); HEMATOCRIT 54.5 % (38.2-49.6); HEMOGLOBIN 16.4 g/dL (14.0-18.0); LYMPHOCYTES # (AUTO) 1.8 (1.0-3.2); LYMPHOCYTES % 19.8 % (18.0-39.1); MEAN CORPUSCULAR HEMOGLOBIN 27.2 pg (28-32); MEAN CORPUSCULAR HGB CONC 30.1 g/dL (31-35); MEAN CORPUSCULAR VOLUME 90.4 fL (81-99); MONOCYTES % 11.4 % (4.4-11.3); NEUTROPHILS # (AUTO) 5.8 (2.1-6.9); NEUTROPHILS % 65.2 % (38.7-80.0); PLATELET COUNT 293 x10e3/uL (140-360); RED BLOOD COUNT 6.03 x10e6/uL (4.3-5.7); RED CELL DISTRIBUTION WIDTH 16.2 % (11.7-14.4)
[2019-02-15 06:33] LABS: ANION GAP 17.7 mmol/L (8-16); CALCIUM 10.4 mg/dL (8.4-10.2); CREATININE, SERUM 2.16 mg/dL (0.72-1.25); MAGNESIUM 3.3 MG/DL (1.3-2.1); POTASSIUM 4.7 mmol/L (3.5-5.1)
[2019-02-15] MEDS ORDERED: CARAFATE1 GM PO (06:50)
[2019-02-15 07:00] LABS: INR 0.97; PROTHROMBIN TIME 13.4 seconds (11.9-14.5)
[2019-02-15 07:01] LABS: PARTIAL THROMBOPLASTIN TIME 38.9 seconds (23.8-35.5)
[2019-02-15 08:00] VITALS: BP 117/69
[2019-02-15 08:15] VITALS: BP 134/70
[2019-02-15] MEDS: ACLOVATE SCH (09:00)
[2019-02-15] MEDS: NON-FORMULARY MEDICATION (Mirabegron (Myrbetriq) 50 MG) PO SCH (09:00)
[2019-02-15] MEDS: CLOPIDOGREL BISULFATE 75 MG TAB PO SCH (09:30)
[2019-02-15] MEDS: SUCRALFATE 1 GM TAB PO SCH (09:33)
[2019-02-15] MEDS: ASPIRIN 81 MG CHEW TAB PO SCH (09:34)
[2019-02-15] MEDS: LIOTHYRONINE SODIUM 5 MCG TAB PO SCH (09:34)
[2019-02-15] MEDS: BUMETANIDE 1 MG TAB PO SCH (09:34)
[2019-02-15] MEDS: DOCUSATE SODIUM 100 MG CAP PO SCH (09:34)
[2019-02-15] MEDS: FOLIC ACID 1 MG TAB PO SCH (09:34)
[2019-02-15] MEDS: SPIRONOLACTONE 25 MG TAB PO SCH (09:34)
[2019-02-15] MEDS: POTASSIUM CHLORIDE 20 MEQ TAB CR PO SCH (09:35)
[2019-02-15] MEDS: BACLOFEN 10 MG TAB PO SCH (09:35)
[2019-02-15] MEDS: CYANOCOBALAMIN 1,000 MCG TAB PO SCH (09:36)
[2019-02-15] MEDS: GUAIFENESIN 200 MG/10 ML UDC PO SCH (09:36)
[2019-02-15] MEDS: METOPROLOL TARTRATE 25 MG TAB PO SCH (09:37)
[2019-02-15] MEDS: CLOBETASOL PROPIONATE 0.05% CRM 15 GM TUBE TOP SCH (09:41)
[2019-02-15] MEDS: BUDESONIDE 0.5MG/2 ML NEB NEB SCH (10:45)
[2019-02-15 11:53] VITALS: BP 117/69
--- NOTE | 2019-02-15 12:33 | NUR ---
ST NOTE: Pt scheduled to d/c today to home. No orders for NMES to treat for dysphagia in acute care setting received at this time. RN requested no intervention at this time secondary to pending d/c. Outpatient orders for NMES to treat dysphagia faxed to PCP Dr. Siri Summers this morning. Attempted to follow up with pt, pt sleeping soundly and not rousing to sternal rub. Handoff to tp and pt's spouse on 02/12/19 re: outpatient therapy, HEP, swallow precautions/how to thicken liquids both verbalized understanding. Handoff to MELISA Ogden
--- NOTE | 2019-02-15 12:49 | Progress Note ---
DATE: 02/15/2019 Pulmonary Medicine Progress Note SUBJECTIVE: Mr. Sharma was seen and examined at bedside. The patient continues with slow, but steady progress. Leg edema still present as he is on his feet a lot, but he is feeling like he is peeing a lot and fluid body. Breathing is better. He is awaiting a tunneled port removal. REVIEW OF SYSTEMS: No GI bleed, no chest pain. OBJECTIVE: VITAL SIGNS: Afebrile, vital signs noted per the chart record. GENERAL: In no acute distress, alert and calm. HEENT: Normocephalic, atraumatic. NECK: Supple. Throat midline. LUNGS: Bilateral air entry, few coarse rhonchi, otherwise clear. CARDIOVASCULAR: S1, S2. No murmurs, rubs, or gallops. ABDOMEN: Soft, nontender. EXTREMITIES: No clubbing, no cyanosis. There is 2+ edema in the legs. INTEGUMENT: No rash. No purpura. LABORATORY DATA: 68 BUN, 2.2 creatinine, and 4.7 potassium. 9 white count and 54 hematocrit. IMPRESSION AND PLAN: 1. Chronic obstructive pulmonary disease with mild exacerbation. 2. Fluid overload, diastolic and due to kidneys. 3. Chronic kidney disease. 4. History of tunneled central line port placement. 5. History of mild obstructive sleep apnea. 6. History of periodic limb movements in sleep/restless legs syndrome. Continue diuretics. Intermittent blood check to be continued. The patient may be able to transition to outpatient followup. Continue bronchodilators and inhaled corticosteroids. MD BREANNA Paulino/MODL /[id number]
--- NOTE | 2019-02-15 12:54 | Progress Note ---
DATE: 02/15/2019 Cardiology Progress Note SUBJECTIVE: No major events overnight. OBJECTIVE: VITAL SIGNS: Temperature 96.0, pulse 75, respiratory rate 20, blood pressure 136/70, saturating 98% on 6 L nasal cannula. GENERAL: No acute distress. CARDIOVASCULAR: Regular rate and rhythm. No murmurs, rubs, or gallops. LUNGS: Clear to auscultation bilaterally. ABDOMEN: Soft, nontender, nondistended. NEURO AND PSYCH: Alert and oriented to person, place, and time. Normal affect. CARDIOVASCULAR MEDICATIONS: Reviewed. LABORATORY DATA: Reviewed. TELEMETRY DATA: Reviewed. Shows atrial fibrillation, rate controlled. ASSESSMENT AND PLAN: 1. Coronary artery disease status post recent stent placement. 2. Atrial fibrillation. 3. Chronic diastolic heart failure. 4. Hypertension. 5. Hyperlipidemia. 6. Cirrhosis by CT scan. 7. Acute on chronic kidney disease. RECOMMENDATIONS: 1. Continue current cardiac medications. The patient's blood pressure has been stable. No evidence of myocardial infarction. Continue dual antiplatelet therapy given recent stents. Volume management per Nephrology. 2. Resume Xarelto once procedure is completed. Thank you for this consult. We will continue to follow. MD NGHIA Veliz/STEVE /[id number]
[2019-02-15] MEDS ORDERED: LIDOCAINE HCL 1% LOCAL INJ 20 ML VIAL ONE (13:54)
--- NOTE | 2019-02-15 14:37 | Diagnostic Imaging Report ---
Date and Time: 02/15/2019 Procedure: Removal of tunneled central venous catheter rewind operator: Dr. DeL una Pre-operative diagnosis: Tunneled central venous catheter no longer needed Post-operative diagnosis: Tunneled central venous catheter no longer needed Conscious Sedation: None Additional Medications: Lidocaine 1% for local anesthesia Contrast used: None Estimated blood loss: Minimal Blood products administered: None Complications: No immediate Specimens: Tunneled central venous catheter discarded Implants: None Condition at completion: Stable Disposition: Returned to floor DISCUSSION: Informed consent was obtained and documented in the medical record after discussion of risks and benefits. The patient was placed in the supine position on the fluoroscopic table. A residential leasing agent image was obtained, showing stable position of the right internal jugular tunneled low flow central venous catheter with the tip projecting over the superior cavoatrial junction. The right upper chest and existing catheter were then prepped and draped in the standard sterile fashion. 1% lidocaine was infiltrated into the skin and subcutaneous tissues along the catheter exit site for local anesthesia. The retention suture was cut. Then, using blunt dissection, the retention cuff of the catheter was freed and the catheter was removed in total. Hemostasis was achieved with manual compression. A sterile dressing was applied. Postprocedure fluoroscopic image was obtained, showing complete removal of the catheter. The patient tolerated the procedure well without immediate complication. IMPRESSION: Successful removal of right internal jugular tunneled low flow central venous catheter. Signed by: Dr. Nilo De Luna M.D. on 02/15/2019 2:33 PM
--- NOTE | 2019-02-15 14:37 | Diagnostic Imaging Report ---
Date and Time: 02/15/2019 Procedure: Removal of tunneled central venous catheter calculator operator: Dr. De Luna Pre-operative diagnosis: Tunneled central venous catheter no longer needed Post-operative diagnosis: Tunneled central venous catheter no longer needed Conscious Sedation: None Additional Medications: Lidocaine 1% for local anesthesia Contrast used: None Estimated blood loss: Minimal Blood products administered: None Complications: No immediate Specimens: Tunneled central venous catheter discarded Implants: None Condition at completion: Stable Disposition: Returned to floor DISCUSSION: Informed consent was obtained and documented in the medical record after discussion of risks and benefits. The patient was placed in the supine position on the fluoroscopic table. A fish pitcher image was obtained, showing stable position of the right internal jugular tunneled low flow central venous catheter with the tip projecting over the superior cavoatrial junction. The right upper chest and existing catheter were then prepped and draped in the standard sterile fashion. 1% lidocaine was infiltrated into the skin and subcutaneous tissues along the catheter exit site for local anesthesia. The retention suture was cut. Then, using blunt dissection, the retention cuff of the catheter was freed and the catheter was removed in total. Hemostasis was achieved with manual compression. A sterile dressing was applied. Postprocedure fluoroscopic image was obtained, showing complete removal of the catheter. The patient tolerated the procedure well without immediate complication. IMPRESSION: Successful removal of right internal jugular tunneled low flow central venous catheter. Signed by: Dr. Nilo De Luna M.D. on 02/15/2019 2:33 PM
--- NOTE | 2019-02-15 14:40 | NUR ---
Pt discharged home at this time. Pt verbalized understanding of all discharge and follow up instructions. Pt had right IJ tunnelled catheter removed prior to discharge. Dressing to right IJ tunneled catheter is dry and intact. No bleeding to site.
--- NOTE | 2019-02-16 11:30 | Discharge Summary ---
ADMISSION DIAGNOSES: Chest pain with history of coronary artery disease and cardiac stent, possible pneumonia, acute on chronic respiratory insufficiency, chronic obstructive pulmonary disease without exacerbation, history of obstructive sleep apnea, bilateral lower extremity cellulitis with venous stasis, dysphagia, dyspepsia, gastroesophageal reflux disease, hypertension with congestive heart failure, coronary artery disease, chronic kidney disease 3, chronic congestive heart failure, chronic atrial fibrillation, coronary artery disease with history of stents, acute kidney injury on chronic kidney disease 3, acute hypokalemia, and ambulatory dysfunction. DISCHARGE DIAGNOSES: Chest pain with history of coronary artery disease and cardiac stent, possible pneumonia, acute on chronic respiratory insufficiency, chronic obstructive pulmonary disease without exacerbation, history of obstructive sleep apnea, bilateral lower extremity cellulitis with venous stasis, dysphagia, dyspepsia, gastroesophageal reflux disease, hypertension with congestive heart failure, coronary artery disease, and chronic kidney disease 3, chronic congestive heart failure, chronic atrial fibrillation, coronary artery disease with history of stents, acute kidney injury on chronic kidney disease 3, acute hypokalemia, and ambulatory dysfunction. Rule out bilateral lower extremity deep vein thrombosis, peripheral artery disease without significant stenosis, benign prostatic hypertrophy, restless legs syndrome, hypertension, and hypothyroid. HISTORY: The patient has a history of CAD, type 2 diabetes, hypertension, COPD, CKD 3, atrial fibrillation, hypothyroidism, gout, neuropathy, RLS, chronic back pain, venous stasis, CHF, OA, GERD, anxiety, glaucoma, ankylosing spondylitis, MJ, dermatitis, pneumonia, chronic cellulitis, urinary retention. SURGICAL HISTORY: Dilaudid pain pump placement, prostate surgery, vein ablation, and 5 cardiac stents. FAMILY HISTORY: The patient's mom and dad both had pacemakers and hypertension. The patient's mother had atrial fibrillation. SOCIAL HISTORY: The patient admits to smoking 1-1/2 packs a day for 30 years. He ambulates with a rolling walker. HOSPITAL COURSE: A 73-year-old male has been having constant dull chest pain for 2 days in central chest without radiation, drinking water exacerbates the pain. He has also been dizzy for 3 days. He had a tunneled right IJ catheter placed 3 weeks ago for home IV antibiotics. On admission, the patient had bilateral venous Doppler, which was negative for DVT. Bilateral lower extremity arterial Doppler that showed arterial disease without significant stenosis. An echo from December 2018 showed an EF of 55-60% and right ventricular systolic pressure could not be estimated. EKG showed atrial fibrillation with 83. Chest x-ray showed mild patchy opacity of the left lung base. The patient then had a modified barium swallow as he said he felt like food was getting stuck in his throat that showed laryngeal penetration with administration of thin liquid, trace silent aspiration. The patient was started on NMES therapy per Speech Therapy and thickened liquids. With the thickened liquids, the patient says he feels much better. Urine culture was negative. Cardiology was consulted, who cleared the patient for removal of the right IJ central catheter. We needed cardiac approval to hold his anticoagulation. She approved the patient had catheter removed on 02/15/2019, and anticoagulation was resumed. The patient received Rocephin x5 days for the pneumonia and cellulitis per ID recommendation. Antibiotics were then stopped and the patient did well for 2 days prior to discharging home. He will discharge home with regular medicines plus Carafate per GI recommendation. The patient is feeling much better and ready to go home. He will follow up with primary care in 1-2 weeks, Cardiology in 1-2 weeks, and Gastroenterology in 1-2 weeks. The patient understands discharge instructions and agrees to plan. Vital signs stable, patient afebrile. Dictated by Tamela Young NP MD MARKUS Ladd/STEVE /[id number]
== END 2019-02-15 14:47 | disposition home or self-care (01) | DRG 291 ==
LOC: ER 13:40 → ERHOLD 22:29 → MED/SURG3 02-09 02:13
PROVIDERS: ADMIT Internal Medicine; ATTEND Internal Medicine
DX: I13.0 Hypertensive heart and chronic kidney disease with heart failure and stage 1 through stage 4 chronic kidney disease, or unspecified chronic kidney disease (principal); I50.33 Acute on chronic diastolic (congestive) heart failure; I50.32 Chronic diastolic (congestive) heart failure; L03.116 Cellulitis of left lower limb; L03.115 Cellulitis of right lower limb; I25.10 Atherosclerotic heart disease of native coronary artery without angina pectoris; Z95.5 Presence of coronary angioplasty implant and graft; E11.22 Type 2 diabetes mellitus with diabetic chronic kidney disease; E11.65 Type 2 diabetes mellitus with hyperglycemia; N18.3 Chronic kidney disease, stage 3 (moderate); Z79.4 Long term (current) use of insulin; E03.9 Hypothyroidism, unspecified
CPT/HCPCS: 36415; 36589; 71045; 74230; 74470; 80048; 80053; 81001; 82550; 82553; 82948; 83036; 83735; 83880; 84100; 84439; 84443; 84484; 85025; 85610; 85730; 87086; 93005; 93925; 93970; 94640; 96367; 99284; J0456; J0696; J2001; J3370; J3480; J7050

== ENCOUNTER 2019-04-23 17:12 | Inpatient (IN) | payer BC, MEDICARE ==
[~2019-04-23] VITALS: Ht 175.3 cm; Wt 88.0 kg
[~2019-04-23 17:12] MED LIST changes: +ALPRAZOLAM0.5 MG PO; +BUMETANIDE2 MG PO; +BUPIVACAINE SC; +CARAFATE1 GM PO; +CLINDAMYCIN HC300 MG PO; +HYDROMORPHONE SC; +METOLAZONE5 MG PO; +XARELTO15 MG PO; +aclovate
--- OUTSIDE RECORDS SUMMARY | 2019-04-23 17:17 | XMS REPORT | Summary of Care ---
Author Author [facility] Organization [facility] Address Unknown Phone Unavailable Encounter JOSSELIN White(FIN) [id number] Date(s): 04/21/19 - 04/21/19 [facility] [address] [place] [address]- Attending Physician: VISIT, NURSE UAHT Referring Physician: Christopher Summers MD Vital Signs [...] ) Vertigo(Confirmed) Resolved Allergies, Adverse Reactions, Alerts No Known Medication Allergies Medications No data available for this section [...] No; Other Tobacco Frequency QUIT SMOKING 2011; 1 entered on: 04/19/19 1Quit smoking 2012 Assessment and Plan No data available for this section
--- OUTSIDE RECORDS SUMMARY | 2019-04-23 17:17 | XMS REPORT | Continuity of Care Document ---
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 11/20/2017 [facility] M54.9 DORSALGIA, UNSPECIFIED G95.9 DISE Active 06/12/2016 [facility] 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, UNSPECIFIE Active 04/04/2016 [facility] DX: M54.4=LUMBAGO WITH SCIATICA, UNSPECI Active 03/26/2016 [facility] R53.1 - WEAKNESS Active 03/18/2016 [facility] Spinal stenosis, lumbar region without neurogenic claudication 03/12/2018 [facility] Spinal stenosis, cervical region 03/12/2018 [facility] Spinal stenosis, cervicothoracic region 03/12/2018 [facility] Afib Resolved Problem 04/23/2019 [facility] [place] [place] Arthritis Resolved Problem 04/23/2019 [facility], [facility] [place] Arthropathy Resolved Problem 04/23/2019 [facility], [facility] [place] Atrial fibrillation and flutter Resolved Problem 04/23/2019 [facility], [facility] [place] Backache Resolved Problem 04/23/2019 [facility], [facility] [place] Benign prostatic hyperplasia with lower urinary tract symptoms Resolved Problem 04/23/2019 [facility], [facility] Bronchitis Resolved Problem 04/23/2019 [facility], [facility] [place] Cataract Resolved Problem 04/23/2019 [facility], [facility] [place] Chronic kidney disease (Confirmed) Resolved Problem 04/23/2019 [facility], [facility] [place] COPD Resolved Problem 04/23/2019 [facility], [facility] [place] Diabetes mellitus type 1 Resolved Problem 04/23/2019 [facility], [facility] [place] Diabetes Resolved Problem 04/23/2019 [facility], [facility] [place] Glaucoma Resolved Problem 04/23/2019 [facility], [facility] [place] Gout Resolved Problem 04/23/2019 [facility], [facility] [place] Hypertension Resolved Problem 04/23/2019 [facility], [facility] [place] Impotence, organic Resolved Problem 04/23/2019 [facility], [facility] [place] Urinary frequency Resolved Problem 04/23/2019 [facility], [facility] [place] Mumps Resolved Problem 04/23/2019 [facility], [facility] [place] Neuropathy Resolved Problem 04/23/2019 [facility], [facility] [place] Nocturia Resolved Problem 04/23/2019 [facility], [facility] [place] Obesity Active Problem 04/23/2019 [facility], [facility] [place] Peripheral vascular disease Resolved Problem 04/23/2019 [facility], [facility] [place] Seborrheic dermatitis Resolved Problem 04/23/2019 [facility], [facility] [place] Sleep apnea Resolved Problem 04/23/2019 [facility], [facility] [place] Urgency of urination Resolved Problem 04/23/2019 [facility], [facility] [place] Other specified urinary incontinence Resolved Problem 04/23/2019 [facility], [facility] [place] UTI (Confirmed) Resolved Problem 04/23/2019 [facility], [facility] [place] Vertigo Resolved Problem 04/23/2019 [facility], [facility] [place] CHF Active Problem 02/15/2019 [facility] COPD exacerbation Active Problem 02/15/2019 [facility] Chronic renal insufficiency Active Problem 02/15/2019 [facility] Cirrhosis Active Problem 02/15/2019 [facility] Hemoptysis Active Problem 02/15/2019 [facility] Pedal edema Active Problem 02/15/2019 [facility] Pneumonia Active Problem 02/15/2019 [facility] Cellulitis of both lower extremities Active Problem 02/15/2019 [facility] Hypokalemia Active Problem 02/15/2019 [facility] DORSALGIA, UNSPECIFIED Active [facility] DISEASE OF SPINAL CORD, UNSPECIFIED Active [facility] Medications Medication Details Route Status Patient Instructions Ordering Provider Order Date Source allopurinol 300 mg oral tablet 300 mg=1 tab, PO, Daily, # 90 tab, 1 Refill(s) Active 04/19/2019 [facility] methenamine hippurate 1 gm, PO, Daily, 0 Refill(s) Active 04/19/2019 [facility] Dulcolax Laxative =1 supp, OK, Daily, PRN constipation, # 5 supp, 0 Refill(s) Active 04/19/2019 [facility] [place] 0.6 mg, PO, Daily, 0 Refill(s) Active 04/19/2019 [facility] Sucralfate (Carafate) 1 Gm Tablet Before Meals Active [place] 02/15/2019 [facility] Clindamycin Hcl 300 Mg Capsule, 300 Mg Oral Three Times A Day Active 02/15/2019 [facility] Bumex Twice A Day Active [place] 01/09/2019 [facility] Potassium Chloride (K-Dur) 20 Meq Tab.er.prt, 20 Meq Oral Every 12 Hours Active 01/09/2019 [facility] Prednisone 10 Mg Tab, 30 Mg Oral Daily Active 12/30/2018 [facility] Prednisone 20 Mg Tab, 20 Mg Oral Daily Active 12/30/2018 [facility] Prednisone 10 Mg Tab, 10 Mg Oral Daily Active 12/30/2018 [facility] Albuterol Sulfate (Proair Hfa Inhaler*) 8.5 Gm Inh, 3 Inh Active 12/11/2018 [facility] Alclometasone Dipropionate 15 Gm Cream..g., 1 Applic Topically Daily Active 12/11/2018 [facility] Albuterol Sulfate (Proair Hfa Inhaler*) 8.5 Gm Inh, 2 Inh Inhalation Daily Active 12/07/2018 [facility] Clobetasol Propionate 1 Ea/15 Gm Cr, 1 Applic Topically Daily Active 12/07/2018 [facility] Mirabegron (Myrbetriq) 50 Mg Tab.er.24h, 50 Mg Oral Every Morning Active 12/07/2018 [facility] [place] Injection , 140 Mg Intramusc Use As Directed Active 12/07/2018 [facility] Spironolactone (Aldactone) 50 Mg Tablet, 50 Mg Oral As Needed Active 12/07/2018 [facility] Folic Acid 1 Mg Tablet, 1 Mg Oral Twice A Day Active 11/05/2018 [facility] Warfarin Sodium 3 Mg Tablet, 3 Mg Oral Daily Active 11/05/2018 [facility] Azithromycin (Zithromax) 500 Mg Tablet, 500 Mg Oral Daily Active [place] 09/16/2018 [facility] Sulfamethoxazole/Trimethoprim (Bactrim Ds Tablet) 1 Each Tablet, 1 Each Oral Twice A Day Active [place] 09/16/2018 [facility] Albuterol Sulf (Proventil 0.083% Neb) 3 Ml Nebu, 3 Ml Inhalation Every 12 Hours Active 09/13/2018 [facility] Albuterol Sulfate (Proair Hfa Inhaler*) 8.5 Gm Inh, 1 Inh Inhalation Three Times A Day Active 09/13/2018 [facility] Albuterol Sulfate (Proair Hfa Inhaler*) 8.5 Gm Inh, Active 09/13/2018 [facility] Cyanocobalamin (Vitamin B-12) (Vitamin B-12) 2,000 Mcg Tablet.er, 2000 Mcg Weekly Active 09/13/2018 [facility] Duloxetine Hcl (Cymbalta) 30 Mg Capsule.dr, 60 Mg Oral Bedtime Active 09/13/2018 [facility] Fe Fumarate/Vit C/B12-If/Fa (Ferocon Capsule) 1 Each Capsule, 1 Cap Oral Daily Active 09/13/2018 [facility] Formoterol Fumarate (Perforomist) 20 Mcg/2 Ml Vial.neb, 20 Mcg Inhalation Daily Active 09/13/2018 [facility] Liraglutide (Victoza 3-Asad) 0.6 Mg/0.1 Ml Pen.injctr, 1.8 Mg Injection Every Morning Active 09/13/2018 [facility] [place]-3/Dha/Epa/Fish Oil (Fish Oil [place]-3 Softgel) 1 Each Capsule.dr, 1 Tab Oral Twice A Day Active 09/13/2018 [facility] Repaglinide (Prandin) 1 Mg Tab, 0.5 Tab Oral As Needed Active 09/13/2018 [facility] Tamsulosin Hcl 0.4 Mg Cap.er.24h, 0.8 Mg Oral Every 12 Hours Active 09/13/2018 [facility] Testoterone , 1 Ml Active 09/13/2018 [facility] Metoprolol Tartrate (Lopressor) 25 Mg Tab Every 12 Hours Active [place] 06/11/2017 [facility] Azithromycin (Z-Asad) 250 Mg Tablet, 500 Mg Oral Daily Active [place] 06/11/2017 [facility] Docusate Sodium (Colace) 100 Mg Capsule, 100 Mg Oral Three Times A Day Active [place] 06/11/2017 [facility] Furosemide 40 Mg Tablet, 80 Mg Oral Bid@06,18 Active [place] 06/11/2017 [facility] Metoprolol Tartrate 25 Mg Tablet, 12.5 Mg Oral Twice A Day Active 06/11/2017 [facility] Polyethylene Glycol 3350 (Miralax) 17 Gm Powd.pack, 17 Gm Oral Twice A Day Active [place] 06/11/2017 [facility] Prednisone 20 Mg Tab, 40 Mg Oral Daily Active [place] 06/11/2017 [facility] Warfarin Sodium (Coumadin) 5 Mg Tablet, 5 Mg Oral Daily At 1700 Active [place] 06/11/2017 [facility] Warfarin Sodium (Coumadin) 5 Mg Tablet, 3 Mg Oral Today At 5:00PM Active 06/11/2017 [facility] Furosemide (Lasix) 40 Mg Tablet, 2 Mg Oral Twice A Day Active 06/04/2017 [facility] Furosemide (Lasix) 40 Mg Tablet, 80 Mg Oral Twice A Day Active 06/04/2017 [facility] Ibuprofen 400 Mg Tablet, 600 Mg Oral Every 6 Hours as needed for Pain Active 06/04/2017 [facility] Mucas , 400 Mcg Oral Twice A Day Active 06/04/2017 [facility] Servent Disk , 50 Mcg Inhalation Twice A Day Active 06/04/2017 [facility] Warfarin Sodium (Coumadin) 5 Mg Tablet, 3 Mg Oral Today At 5:00PM Active 06/04/2017 [facility] Warfarin Sodium (Coumadin) 2 Mg Tablet, 2 Mg Oral Daily Active 06/04/2017 [facility] Warfarin Sodium (Coumadin) 2.5 Mg Tablet, 2.5 Mg Oral Daily Active 06/04/2017 [facility] Warfarin Sodium (Coumadin) 5 Mg Tablet, 5 Mg Oral Today At 5:00PM Active 06/04/2017 [facility] Aspirin 325 Mg Tablet, 81 Mg Oral Daily Active 05/07/2017 [facility] Bupivacaine Hcl (Marcaine) 2.5 Mg/1 Ml Vial, 1.143 Mg Daily Active 05/07/2017 [facility] Carisoprodol 350 Mg Tablet, 350 Mg Oral as needed Active 05/07/2017 [facility] Fenofibric Acid (Choline) (Trilipix) 135 Mg Capsule., 135 Mg Oral Daily Active 05/07/2017 [facility] Hydrocodone Bit/Acetaminophen (Hydrocodone-Apap 10-325 Mg Tab) 1 Each Tablet, 1 Each Oral as needed Active 05/07/2017 [facility] Hydrocodone Bit/Acetaminophen (Hydrocodon-Acetaminophn 10-325) 1 Each Tablet, 10 Mg Oral As Needed Active 05/07/2017 [facility] Latanoprost 2.5 Ml Drops, 2.5 Ml Ophthalmic Daily Active 05/07/2017 [facility] Linagliptin (Tradjenta) 5 Mg Tablet, 5 Mg Oral Daily Active 05/07/2017 [facility] Morphine Pump , 12.7 Mg Daily Active 05/07/2017 [facility] Multivitamin (Multivitamins) 1 Each Tab.chew, Oral Daily Active 05/07/2017 [facility] Omeprazole 40 Mg Capsule.dr, 40 Mg Oral Daily Active 05/07/2017 [facility] Polyethylene Glycol 3350 (Clearlax) 17 Gm Powd.pack, As Needed Active 05/07/2017 [facility] Testosterone (Testopel) 75 Mg Pellet.ea., 75 Mg Active 05/07/2017 [facility] Torsemide 20 Mg Tablet, 20 Mg Oral Twice A Day Active 05/07/2017 [facility] Zolpidem Tartrate (Ambien) 10 Mg Tablet, 10 Mg Oral Bedtime Active 05/07/2017 [facility] Axiron , 30 Mg Daily Active 09/01/2013 [facility] Caltrate +D , Oral Twice A Day Active 09/01/2013 [facility] Furosemide 40 Mg Tablet, 40 Mg Oral Daily Active 09/01/2013 [facility] Marcaine , Daily Active 09/01/2013 [facility] Morphine Pump , Daily Active 09/01/2013 [facility] Zolpidem Tartrate (Ambien Cr) 12.5 Mg Tab.mphase, 12.5 Mg Oral Daily Active 09/01/2013 [facility] Aclometasone 0.05% 1 Each Daily Active [facility] Albuterol Sulfate 0.63 Mg/3 Ml Vial.neb Twice A Day Active [facility] Albuterol Sulfate (Proair Hfa Inhaler*) 8.5 Gm Inh Daily Active PATIENT TAKES 3-5 PUFFS INHALATION [facility] Alprazolam 0.5 Mg Tab.rapdis As Needed Active [facility] Aspirin (Aspir 81) 81 Mg Tablet. Daily Active [facility] Baclofen 10 Mg Tablet Three Times A Day Active [facility] Budesonide 0.5 Mg/2 Ml Ampul.neb Twice A Day Active [facility] Carisoprodol (Soma) 350 Mg Tablet Daily as needed for Pain Active [facility] Cholecalciferol (Vitamin D3) (Vitamin D3) 2,000 Unit Capsule Bedtime Active [facility] Clobetasol Propionate 1 Ea/15 Gm Cr Daily Active [facility] Clopidogrel Bisulfate (Clopidogrel) 75 Mg Tablet Daily Active [facility] Cosentyx Qmonth Active [facility] Dilaudid Pain Pump Use As Directed Active DILAUDID 6.225MG AND 0.9773MG MARCAINE DAILY DELIVERED BY PAIN PUMP [facility] Fe Fumarate/Vit C/B12-If/Fa (Ferocon Capsule) 1 Each Capsule Daily Active [facility] Folic Acid 1 Mg Tablet Twice A Day Active [facility] Guaifenesin (Mucus Relief) 400 Mg Tablet Twice A Day Active [facility] Hydromorphone Hcl 2 Mg Tablet As Needed as needed for Prn Active [facility] Latanoprost 2.5 Ml Drops Bedtime Active [facility] Levothyroxine Sodium 50 Mcg Tablet Daily Active [facility] Liothyronine Sodium 5 Mcg Tablet Every Morning Active [facility] Mirabegron (Myrbetriq) 50 Mg Tab.er.24h Daily Active [facility] Pantoprazole Sodium (Protonix) 40 Mg Tablet. Bedtime Active [facility] Pramipexole Di-Hcl (Pramipexole Dihydrochloride) 0.25 Mg Tablet Bedtime Active [facility] Psyllium Husk (Wal-Mucil) 0.52 Gm Capsule Daily Active [facility] [place] Injection Use As Directed Active PATIENT TAKES EVERY 2 WEEKS [facility] Rivaroxaban (Xarelto) 10 Mg Tablet Bedtime Active [facility] Ropinirole Hcl 0.25 Mg Tablet Bedtime Active [facility] Sertraline Hcl 50 Mg Tablet Bedtime Active [facility] Sodium Chloride For Inhalation (Hyper-Lamine) 4 Ml Vial.neb Daily as needed for Nasal Congestion Active [facility] Spironolact/Hydrochlorothiazid (Aldactazide 50-50 Tablet) 1 Each Tablet Daily Active [facility] Testosterone Cypionate 200 Mg/1 Ml Vial Active every 2 weeks [facility] Vitamin B12 Use As Directed Active ONCE A WEEK [facility] Aclovate Daily Active [facility] Alprazolam 0.5 Mg Tablet Bedtime Active [facility] Bumetanide 2 Mg Tablet Twice A Day Active [facility] Cosentyx 150 Mg .monthly Active [facility] Hydromorphone/Bupiv/0.9NACL/Pf (Hydromor-Bupiva 10 Mcg-0.0625%) 100 Ml Pump.resvr Daily Active [facility] Metolazone 5 Mg Tablet Active TAKE 30 MINUTES PRIOR TO BUMEX DOSE [facility] Rivaroxaban (Xarelto) 15 Mg Tablet Daily Active [facility] Allergies, Adverse Reactions, Alerts Substance Category Reaction Severity Reaction type Status Date Reported Comments Source No Known Drug Allergies Unknown Allergy to Substance Active 02/08/2019 [facility] No Known Medication Allergies Assertion Drug allergy Medical Group Immunizations No Data Provided for This Section Results Order Name Results Value Reference Range Date Interpretation Comments Source Capillary blood glucose measurement by glucometer (mass/volume) 126 70 - 120 02/15/2019 [facility] Blood leukocytes automated count (number/volume) 8.88 4.8 - 10.8 02/15/2019 [facility] Blood erythrocytes automated count (number/volume) 6.03 4.3 - 5.7 02/15/2019 [facility] Blood hemoglobin measurement (moles/volume) 16.4 14.0 - 18.0 02/15/2019 [facility] Automated blood hematocrit (volume fraction) 54.5 38.2 - 49.6 02/15/2019 [facility] Automated erythrocyte mean corpuscular volume 90.4 81 - 99 02/15/2019 [facility] Automated erythrocyte mean corpuscular hemoglobin (mass per erythrocyte) 27.2 28 - 32 02/15/2019 [facility] Automated erythrocyte mean corpuscular hemoglobin concentration measurement (mass/volume) 30.1 31 - 35 02/15/2019 [facility] RDW BldCo-Rto 16.2 11.7 - 14.4 02/15/2019 [facility] Automated blood platelet count (count/volume) 293 140 - 360 02/15/2019 [facility] Automated blood segmented neutrophil count as percentage of total leukocytes 65.2 38.7 - 80.0 02/15/2019 [facility] Automated blood lymphocyte count as percentage ot total leukocytes 19.8 18.0 - 39.1 02/15/2019 [facility] Automated blood monocyte count as percentage of total leukocytes 11.4 4.4 - 11.3 02/15/2019 [facility] Automated blood eosinophil count as percentage of total leukocytes 2.1 0.0 - 6.0 02/15/2019 [facility] Automated blood basophil count as percentage of total leukocytes 1.0 0.0 - 1.0 02/15/2019 [facility] IM GRANULOCYTES % 0.5 0.0 - 1.0 02/15/2019 [facility] Automated blood neutrophil count 5.8 2.1 - 6.9 02/15/2019 [facility] Blood lymphocytes count (number/volume) 1.8 1.0 - 3.2 02/15/2019 [facility] Blood monocytes automated count (number/volume) 1.0 0.2 - 0.8 02/15/2019 [facility] Automated blood eosinophil count 0.2 0.0 - 0.4 02/15/2019 [facility] Automated blood basophil count (count/volume) 0.1 0.0 - 0.1 02/15/2019 [facility] Absolute Immature Granulocyte (auto 0.04 0 - 0.1 02/15/2019 [facility] Prothrombin time (PT) in platelet poor plasma by coagulation assay 13.4 11.9 - 14.5 02/15/2019 [facility] INR in Platelet poor plasma by Coagulation assay 0.97 02/15/2019 [facility] Activated partial thromboplastin time (aPTT) in platelet poor plasma bycoagulation assay 38.9 23.8 - 35.5 02/15/2019 [facility] Serum or plasma sodium measurement (moles/volume) 139 136 - 145 02/15/2019 [facility] Serum or plasma potassium measurement (moles/volume) 4.7 3.5 - 5.1 02/15/2019 [facility] Serum or plasma chloride measurement (moles/volume) 84 98 - 107 02/15/2019 [facility] Serum or plasma carbon dioxide, total measurement (moles/volume) 42 22 - 29 02/15/2019 [facility] Serum or plasma anion gap 17.7 8 - 16 02/15/2019 [facility] Serum or plasma urea nitrogen measurement (mass/volume) 68 7 - 26 02/15/2019 [facility] Serum or plasma creatinine measurement (mass/volume) 2.16 0.72 - 1.25 02/15/2019 [facility] Serum or plasma urea nitrogen/creatinine mass ratio 31 6 - 25 02/15/2019 [facility] Estimated glomerular filtration rate (GFR) determination 30 60 02/15/2019 [facility] Glucose measurement 140 74 - 118 02/15/2019 [facility] Serum or plasma calcium measurement (mass/volume) 10.4 8.4 - 10.2 02/15/2019 [facility] Serum or plasma magnesium measurement (mass/volume) 3.3 1.3 - 2.1 02/15/2019 [facility] BNP Bld-mCnc 91.6 0 - 100 02/15/2019 [facility] Hemoglobin A1c Percent 6.2 4.0 - 7.0 02/12/2019 [facility] Phosphorus measurement 3.5 2.3 - 4.7 02/12/2019 [facility] Serum or plasma thyroxine (T4) free measurement (mass/volume) 0.92 0.9 - 1.8 02/12/2019 [facility] Serum or plasma thyrotropin measurement by detection limit <=0.005 miu/l (units/volume) 1.875 0.350 - 4.940 02/12/2019 [facility] Serum or plasma creatine kinase measurement (enzymatic activity/volume) 127 30 - 200 02/11/2019 [facility] Serum or plasma creatine kinase MB measurement (mass/volume) 2.50 0 - 5.0 02/11/2019 [facility] Troponin I measurement by highly sensitive enzyme immunoassay 0.017 0 - 0.300 02/11/2019 [facility] Serum or plasma total bilirubin measurement (mass/volume) 0.6 0.2 - 1.2 02/09/2019 [facility] Aspartate Amino Transf (AST/SGOT) 15 5 - 34 02/09/2019 [facility] Serum or plasma alanine aminotransferase measurement (enzymatic activity/volume) 10 0 - 55 02/09/2019 [facility] Serum or plasma protein measurement (mass/volume) 6.7 6.5 - 8.1 02/09/2019 [facility] Serum or plasma albumin measurement (mass/volume) 3.4 3.5 - 5.0 02/09/2019 [facility] Plasma globulin measurement (mass/volume) 3.3 2.3 - 3.5 02/09/2019 [facility] Serum or plasma albumin/globulin mass ratio 1.0 0.8 - 2.0 02/09/2019 [facility] Serum or plasma alkaline phosphatase measurement (enzymatic activity/volume) 78 40 - 150 02/09/2019 [facility] Urine color determination YELLOW YELLOW 02/08/2019 [facility] Urine clarity CLEAR CLEAR 02/08/2019 [facility] Specific gravity of Urine by Test strip 1.010 1.010 - 1.025 02/08/2019 [facility] Urine pH measurement by automated test strip 7 5 - 7 02/08/2019 [facility] Urine leukocyte esterase detection by dipstick NEGATIVE NEGATIVE 02/08/2019 [facility] Urine nitrite detection NEGATIVE NEGATIVE 02/08/2019 [facility] Urine protein measurement by test strip (mass/volume) NEGATIVE NEGATIVE 02/08/2019 [facility] Urine glucose detection NEGATIVE NEGATIVE 02/08/2019 [facility] Urine ketones detection by automated test strip NEGATIVE NEGATIVE 02/08/2019 [facility] Urine urobilinogen measurement by test strip (mass/volume) 0.2 0.2 - 1 02/08/2019 [facility] Urine total bilirubin measurement (mass/volume) NEGATIVE NEGATIVE 02/08/2019 [facility] Urine erythrocytes detection NEGATIVE NEGATIVE 02/08/2019 [facility] Automated urine sediment leukocyte count by microscopy (number/high power field) NONE 0 - 5 02/08/2019 [facility] Erythrocytes detection in urine sediment by light microscopy NONE 0 - 5 02/08/2019 [facility] Bacteria detection in urine sediment by light microscopy NONE NONE 02/08/2019 [facility] Epithelial cells detection in urine sediment by light microscopy RARE NONE 02/08/2019 [facility] Capillary blood glucose measurement by glucometer (mass/volume) 151 70 - 120 01/09/2019 [facility] Blood leukocytes automated count (number/volume) 8.53 4.8 - 10.8 01/09/2019 [facility] Blood erythrocytes automated count (number/volume) 6.08 4.3 - 5.7 01/09/2019 [facility] Blood hemoglobin measurement (moles/volume) 16.4 14.0 - 18.0 01/09/2019 [facility] Automated blood hematocrit (volume fraction) 54.7 38.2 - 49.6 01/09/2019 [facility] Automated erythrocyte mean corpuscular volume 90.0 81 - 99 01/09/2019 [facility] Automated erythrocyte mean corpuscular hemoglobin (mass per erythrocyte) 27.0 28 - 32 01/09/2019 [facility] Automated erythrocyte mean corpuscular hemoglobin concentration measurement (mass/volume) 30.0 31 - 35 01/09/2019 [facility] RDW BldCo-Rto 17.9 11.7 - 14.4 01/09/2019 [facility] Automated blood platelet count (count/volume) 220 140 - 360 01/09/2019 [facility] Automated blood segmented neutrophil count as percentage of total leukocytes 87.2 38.7 - 80.0 01/09/2019 [facility] Automated blood lymphocyte count as percentage ot total leukocytes 7.0 18.0 - 39.1 01/09/2019 [facility] Automated blood monocyte count as percentage of total leukocytes 4.6 4.4 - 11.3 01/09/2019 [facility] Automated blood eosinophil count as percentage of total leukocytes 0.0 0.0 - 6.0 01/09/2019 [facility] Automated blood basophil count as percentage of total leukocytes 0.1 0.0 - 1.0 01/09/2019 [facility] IM GRANULOCYTES % 1.1 0.0 - 1.0 01/09/2019 [facility] Automated blood neutrophil count 7.4 2.1 - 6.9 01/09/2019 [facility] Blood lymphocytes count (number/volume) 0.6 1.0 - 3.2 01/09/2019 [facility] Blood monocytes automated count (number/volume) 0.4 0.2 - 0.8 01/09/2019 [facility] Automated blood eosinophil count 0.0 0.0 - 0.4 01/09/2019 [facility] Automated blood basophil count (count/volume) 0.0 0.0 - 0.1 01/09/2019 [facility] Absolute Immature Granulocyte (auto 0.09 0 - 0.1 01/09/2019 [facility] Serum or plasma sodium measurement (moles/volume) 140 136 - 145 01/09/2019 [facility] Serum or plasma potassium measurement (moles/volume) 4.4 3.5 - 5.1 01/09/2019 [facility] Serum or plasma chloride measurement (moles/volume) 91 98 - 107 01/09/2019 [facility] Serum or plasma carbon dioxide, total measurement (moles/volume) 40 22 - 29 01/09/2019 [facility] Serum or plasma anion gap 13.4 8 - 16 01/09/2019 [facility] Serum or plasma urea nitrogen measurement (mass/volume) 33 7 - 26 01/09/2019 [facility] Serum or plasma creatinine measurement (mass/volume) 1.41 0.72 - 1.25 01/09/2019 [facility] Serum or plasma urea nitrogen/creatinine mass ratio 23 6 - 25 01/09/2019 [facility] Estimated glomerular filtration rate (GFR) determination 49 60 01/09/2019 [facility] Glucose measurement 154 74 - 118 01/09/2019 [facility] Serum or plasma calcium measurement (mass/volume) 8.8 8.4 - 10.2 01/09/2019 [facility] Serum or plasma magnesium measurement (mass/volume) 2.5 1.3 - 2.1 01/09/2019 [facility] BNP Bld-mCnc 381.1 0 - 100 01/09/2019 [facility] Differential Total Cells Counted 100 01/08/2019 [facility] Manual blood neutrophils/100 leukocytes 91 40 - 74 01/08/2019 [facility] Manual blood lymphocytes/100 leukocytes 6 19 - 48 01/08/2019 [facility] Manual blood monocytes/100 leukocytes 3 3.4 - 9.0 01/08/2019 [facility] Blood platelets count by estimate (number/volume) ADEQUATE 01/08/2019 [facility] Platelet morphology NORMAL 01/08/2019 [facility] RBC morphology NORMAL 01/08/2019 [facility] Differential Total Cells Counted 100 01/08/2019 [facility] Manual blood neutrophils/100 leukocytes 91 40 - 74 01/08/2019 [facility] Manual blood lymphocytes/100 leukocytes 6 19 - 48 01/08/2019 [facility] Manual blood monocytes/100 leukocytes 3 3.4 - 9.0 01/08/2019 [facility] Blood platelets count by estimate (number/volume) ADEQUATE 01/08/2019 [facility] Platelet morphology NORMAL 01/08/2019 [facility] RBC morphology NORMAL 01/08/2019 [facility] Urine color determination STRAW YELLOW 01/07/2019 [facility] Urine clarity CLEAR CLEAR 01/07/2019 [facility] Specific gravity of Urine by Test strip 1.010 1.010 - 1.025 01/07/2019 [facility] Urine pH measurement by automated test strip 6 5 - 7 01/07/2019 [facility] Urine leukocyte esterase detection by dipstick NEGATIVE NEGATIVE 01/07/2019 [facility] Urine nitrite detection NEGATIVE NEGATIVE 01/07/2019 [facility] Urine protein measurement by test strip (mass/volume) NEGATIVE NEGATIVE 01/07/2019 [facility] Urine glucose detection NEGATIVE NEGATIVE 01/07/2019 [facility] Urine ketones detection by automated test strip NEGATIVE NEGATIVE 01/07/2019 [facility] Urine urobilinogen measurement by test strip (mass/volume) 0.2 0.2 - 1 01/07/2019 [facility] Urine total bilirubin measurement (mass/volume) NEGATIVE NEGATIVE 01/07/2019 [facility] Urine erythrocytes detection NEGATIVE NEGATIVE 01/07/2019 [facility] Automated urine sediment leukocyte count by microscopy (number/high power field) 0-5 0 - 5 01/07/2019 [facility] Erythrocytes detection in urine sediment by light microscopy NONE 0 - 5 01/07/2019 [facility] Bacteria detection in urine sediment by light microscopy NONE NONE 01/07/2019 [facility] Epithelial cells detection in urine sediment by light microscopy MODERATE NONE 01/07/2019 [facility] Transitional cells detection in urine sediment by light microscopy RARE NONE 01/07/2019 [facility] Hyaline casts detection in urine sediment by light microscopy >15 0 - 1 01/07/2019 [facility] Transitional cells detection in urine sediment by light microscopy RARE NONE 01/07/2019 [facility] Hyaline casts detection in urine sediment by light microscopy >15 0 - 1 01/07/2019 [facility] Serum or plasma creatine kinase measurement (enzymatic activity/volume) 66 30 - 200 01/06/2019 [facility] Serum or plasma creatine kinase MB measurement (mass/volume) 2.50 0 - 5.0 01/06/2019 [facility] Troponin I measurement by highly sensitive enzyme immunoassay 0.005 0 - 0.300 01/06/2019 [facility] Hemoglobin A1c Percent 6.2 4.0 - 7.0 01/06/2019 [facility] Serum or plasma thyroxine (T4) free measurement (mass/volume) 0.76 0.9 - 1.8 01/06/2019 [facility] Serum or plasma thyrotropin measurement by detection limit <=0.005 miu/l (units/volume) 0.739 0.350 - 4.940 01/06/2019 [facility] Procalcitonin (PCT) level 0.07 0.00 - 0.08 01/06/2019 [facility] Procalcitonin (PCT) level 0.07 0.00 - 0.08 01/06/2019 [facility] Arterial blood pH measurement 7.35 7.31 - 7.41 01/05/2019 [facility] pCO2 BldA 66 41 - 51 01/05/2019 [facility] pCO2 BldA 98 80 - 105 01/05/2019 [facility] Arterial blood bicarbonate measurement (moles/volume) 36 - 01/05/2019 [facility] Arterial blood base excess by calculation 10.0 -2 - 3 - 2 01/05/2019 [facility] Arterial blood oxygen saturation measurement 97.0 95 - 98 01/05/2019 [facility] FiO2 35 01/05/2019 [facility] Arterial blood pH measurement 7.35 7.31 - 7.41 01/05/2019 [facility] pCO2 BldA 66 41 - 51 01/05/2019 [facility] pCO2 BldA 98 80 - 105 01/05/2019 [facility] Arterial blood bicarbonate measurement (moles/volume) 36 23 - 28 01/05/2019 [facility] Arterial blood base excess by calculation 10.0 -2 - 3 - 2 01/05/2019 [facility] Arterial blood oxygen saturation measurement 97.0 95 - 98 01/05/2019 [facility] FiO2 35 01/05/2019 [facility] Prothrombin time (PT) in platelet poor plasma by coagulation assay 16.2 11.9 - 14.5 01/05/2019 [facility] INR in Platelet poor plasma by Coagulation assay 1.24 01/05/2019 [facility] Activated partial thromboplastin time (aPTT) in platelet poor plasma bycoagulation assay 38.8 23.8 - 35.5 01/05/2019 [facility] Lactic Acid Level 13.5 4.5 - 19.8 01/05/2019 [facility] Serum or plasma total bilirubin measurement (mass/volume) 0.6 0.2 - 1.2 01/05/2019 [facility] Aspartate Amino Transf (AST/SGOT) 17 5 - 34 01/05/2019 [facility] Serum or plasma alanine aminotransferase measurement (enzymatic activity/volume) 14 0 - 55 01/05/2019 [facility] Serum or plasma protein measurement (mass/volume) 6.6 6.5 - 8.1 01/05/2019 [facility] Serum or plasma albumin measurement (mass/volume) 3.5 3.5 - 5.0 01/05/2019 [facility] Plasma globulin measurement (mass/volume) 3.1 2.3 - 3.5 01/05/2019 [facility] Serum or plasma albumin/globulin mass ratio 1.1 0.8 - 2.0 01/05/2019 [facility] Serum or plasma alkaline phosphatase measurement (enzymatic activity/volume) 106 40 - 150 01/05/2019 [facility] Blood culture NO GROWTH AFTER 5 DAYS, FINAL REPORT 01/05/2019 [facility] Lactic Acid Level 13.5 4.5 - 19.8 01/05/2019 [facility] Urine creatinine measurement (mass/volume) 48.99 63 - 166 12/12/2018 [facility] Random urine protein/creatinine ratio 0.41 12/12/2018 [facility] Random urine protein/creatinine ratio 0.41 12/12/2018 [facility] Urine protein measurement (mass/volume) 20.3 1 - 14 12/12/2018 [facility] Blood hypochromia detection by light microscopy SLIGHT 09/15/2018 [facility] Blood ovalocytes detection by light microscopy FEW 09/15/2018 [facility] Blood ovalocytes detection by light microscopy FEW 09/15/2018 [facility] Giant platelet detection FEW 09/15/2018 [facility] Phosphorus measurement 2.9 2.3 - 4.7 08/04/2018 [facility] Urine potassium measurement (moles/volume) 24.1 08/01/2018 [facility] CHEM PANEL eGFR 55 06/24/2016 Result Comment: The eGFR is calculated [...] should be multiplied by the estimated BMI. [facility] CHEM PANEL POC Creatinine 1.3 0.5 - 1.4 06/24/2016 [facility] CHEM PANEL eGFR 55 04/10/2016 Result Comment: The eGFR is calculated [...] should be multiplied by the estimated BMI. 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 Total exam IRV=3890 mGy-cm. Impression: 1. Unremarkable barium swallow esophagram 12/28/2018 [facility] Spine cervical 2 or 3 [...] visualized portions of the cervical spine. 12/28/2018 [facility] Spine lumbar wo contrast MRI Study: Spine [...] bilateral neural foraminal narrowing at L4-L5. SL: [id number] 12/04/2017 [facility] Spine cervical wo contrast MRI Study: Spine [...] foraminal narrowing, left greater than right. SL: [id number] 12/04/2017 [facility] Hip bilat w pelvis and both lat [...] the lower lumbar spine partially visualized. 04/23/2017 [facility] Sacroiliac joints series DX EXAMINATION: Sacroiliac joint [...] the lower lumbar spine partially visualized. 04/23/2017 [facility] Thoracic w/wo contrast MRI EXAM: Spine [...] nerve sheath tumor, or epidermoid cyst. SL: [id number] 06/24/2016 [facility] Spine lumbar w/wo contrast MRI Patient Name: STEVE BENEDICT : 1945; Age: 70 years y/o Male MR: [id number] Study: Spine lumbar w/wo contrast MRI 06/24/2016 [...] compatible with acute on chronic denervation. SL: [id number] 06/24/2016 [facility] thoracic wo contrast CT CT THORACIC AND [...] 2. No acute abnormalities are visualized. SL:06/19/2016 [facility] lumbar wo contrast CT CT THORACIC AND [...] 2. No acute abnormalities are visualized. SL:06/19/2016 [facility] cervical 2 or 3 view DX EXAM: [...] 2. No acute fracture or malalignment. 04/23/2016 [facility] Thoracic w/wo contrast MRI MRI THORACIC SPINE [...] and multiple bilateral renal cysts. SL:16 04/10/2016 [facility] Spine lumbar w/wo contrast MRI EXAM: MRI [...] smoking and anemia among other etiologies. SL: [id number] 03/28/2016 [facility] Consultation Notes No Data Provided for This Section Discharge Summaries No Data Provided for This Section History and Physicals No Data Provided for This Section Vital Signs Vital Sign Value Date Comments Source BMI Calculated 34.5 04/19/2019 [facility] Height 175.26 cm 04/19/2019 [facility] Weight 105.966 04/19/2019 [facility] Encounters Location Location Details Encounter Type Encounter Number Reason For Visit Attending Provider ADM Date DC Date Status Source [facility] [place] [facility] [id number] Monique Louy 03/06/2016 03/07/2016 [facility] Outpatient [id number] Christopher Summers 03/28/2016 03/29/2016 [facility] [place] [facility] [id number] Angel Martínez 04/02/2016 04/03/2016 [facility] Outpatient [id number] Elida Valenzuela 04/10/2016 04/11/2016 [facility] [place] [facility] [id number] Monique Brianna 04/23/2016 04/24/2016 [facility] Outpatient [id number] FADI DANIEL 06/06/2016 [facility] Outpatient [id number] Fadi Daniel Jr 06/19/2016 06/20/2016 [facility] Outpatient [id number] Fadi Daniel Jr 06/24/2016 06/25/2016 [facility] Outpatient [id number] FADI DANIEL 07/11/2016 [facility] Outpatient Imaging [facility] [place] [facility] [id number] Mila Robert 04/23/2017 04/24/2017 [facility] Outpatient [id number] Oleksandr Whitt 12/05/2017 12/05/2017 [facility] Discharged Inpatient [id number] HAILEE HERNANDEZ MD 08/02/2018 08/05/2018 [facility] Discharged Inpatient [id number] ROSALIE MEDINA MD 09/13/2018 09/16/2018 [facility] Discharged Inpatient (obs) [id number] HAILEE HERNANDEZ MD 11/06/2018 11/07/2018 [facility] Outpatient [id number] CARLA REYNAGA 11/30/2018 [facility] [id number] HAILEE HERNANDEZ MD 12/08/2018 [facility] Discharged Inpatient [id number] ALINA PULIDO MD 12/13/2018 12/15/2018 [facility] Outpatient [id number] URODYNAMICS 12/16/[address] [facility] Outpatient [id number] [facility] 12/22/2018 [facility] Outpatient [facility] [place] [facility] [id number] Mila Jones 12/28/2018 12/29/2018 [facility] [place] Discharged Inpatient (obs) [id number] HAILEE HERNANDEZ MD 12/30/2018 12/31/2018 [facility] Discharged Inpatient [id number] ROSALIE MEDINA MD 01/05/2019 01/09/2019 [facility] Outpatient [id number] [facility] 02/02/[address] [facility] Discharged Inpatient [id number] ROSALIE MEDINA MD 02/08/2019 02/15/2019 [facility] Outpatient [id number] [facility] 04/19/2019 [facility] Outpatient [id number] [facility] 04/19/2019 04/20/2019 [facility] Outpatient [id number] NURSE VISIT 04/21/2019 [facility] Ambulatory Pre-Reg [id number] Christopher Summers 04/21/2019 04/21/2019 [facility] Outpatient [id number] [facility] 05/04/[address] [facility] Outpatient [id number] -URODYNAMICS, 06/08/[address] [facility] Outpatient [id number] [facility] 06/14/[address] [facility] Procedures Procedure Code Date Perfomer Comments Source X-ray of chest, single view [id number] 02/08/2019 [facility] US abdomen complete [id number] 01/06/2019 [facility] Computed tomography of chest with contrast [id number] 01/05/2019 [facility] PRQ CARD STENT W/ANGIO 1 VSL 06931 12/08/2018 [facility] CORONARY ARTERY ANGIO S&I 06236 12/08/2018 [facility] PRQ CARD STENT W/ANGIO 1 VSL [id number] 11/06/2018 [facility] CORONARY ARTERY ANGIO S&I [id number] 11/06/2018 [facility] X-ray of chest, two views [id number] 09/13/2018 [facility] Cystoscopy [id number] 08/25/2018 [facility] Cystoscopy [id number] 08/25/2018 [facility] X-ray of chest, two views [id number] 07/31/2018 [facility] Ultrasound, renal [id number] 07/31/2018 [facility] Complex uroflowmetry [id number] 03/30/2018 [facility] Complex uroflowmetry [id number] 03/30/2018 [facility] Catheter replacement [id number] [facility] Fusion<sup>1</sup> [id number] cervical fusion done on 09/11/[address] Nilo Adames [facility] Prostate manipulation [id number] [facility] Stent replacement [id number] [facility] Catheter replacement [id number] [facility] Fusion<sup>1</sup> [id number] cervical fusion done on 09/11/[address] Nilo Adames [facility] Prostate manipulation [id number] [facility] Stent replacement [id number] [facility] Catheter replacement [id number] [facility] Fusion<sup>1</sup> [id number] cervical fusion done on 09/11/[address] Nilo Adames [facility] Prostate manipulation [id number] [facility] Stent replacement [id number] [facility] Assessment and Plan No Data Provided for This Section Plan of Care Plan of Care Date Source Discharge Date 02/15/19 2:47pm Disposition HOME, SELF-CARE Instructions/Education Provided Atrial Fibrillation Cellulitis Prescriptions See Medication Section Additional Instructions/Education F/U WITH PCP IN 1-2 WEEKS F/U WITH DR HERNANDEZ IN 1-2 WEEKS F/U WITH DR AMEZCUA IN 1-2 WEEKS F/U WITH DR RESENDEZ IN 1-2 WEEKS CONTINUE WITH THICKENED LIQUIDS 02/15/2019 [facility] Discharge Date 01/09/19 1:42pm Disposition HOME, SELF-CARE Instructions/Education Provided Cirrhosis COPD Prescriptions See Medication Section Referrals HAILEE HERNANDEZ MD (Cardiology) Order Date: 7-10 Days Entered Date: 01/09/2019 12:33pm Address: [address] [place] [address] JOHNSON AMEZCUA MD (Internal Medicine) Order Date: 1-2 Weeks Entered Date: 01/09/2019 12:33pm Address: [address] [place] [address] [address] [place] [address] Additional Instructions/Education FOLLOW UP WITH PCP IN 1-2 WEEKS FOLLOW UP WITH NEPHROLOGY IN 1-2 WEEKS FOLLOW UP WITH DR BLACK IN 1-2 WEEKS FOLLOW UP WITH CARDIOLOGY (DR. HERNANDEZ) NEXT WEEK CALL EACH OFFICE TO SCHEDULE AN APPOINTMENT 01/09/2019 [facility] Social History Social History Date Source Social History TypeResponse Smoking Status Former smoker; Ready to change: No; Concerns about tobacco use in household: No; Exposure to Tobacco Smoke None; Cigarette Smoking Last 365 Days No; Reg Smoking Cessation Counseling No; Other Tobacco Frequency QUIT SMOKING 2011; 1 entered on: 04/19/19 1Quit smoking 2012 04/19/2019 [facility] Social History Problem Response Recorded Date/Time Onset Date Status Hx Psychiatric Problems No 06/04/2017 3:20pm Not Applicable Not Applicable Hx Substance Use Disorder No 12/30/2018 10:43am Not Applicable Not Applicable Hx Alcohol Use No 12/30/2018 10:43am Not Applicable Not Applicable Smoking Status Start Date Stop Date Former smoker 02/15/2019 [facility] Social History TypeResponse Smoking Status Former smoker; Ready to change: No; Concerns about tobacco use in household: No; Exposure to Tobacco Smoke None; Cigarette Smoking Last 365 Days No; Reg Smoking Cessation Counseling No; Other Tobacco Frequency QUIT SMOKING 2011; entered on: 12/22/18 12/22/2018 [facility] Social History TypeResponse Smoking Status Never smoker; Ready to change: No; Concerns about tobacco use in household: No; Exposure to Tobacco Smoke None; Cigarette Smoking Last 365 Days No; Reg Smoking Cessation Counseling No entered on: 07/11/16 07/11/2016 [facility] Social History TypeResponse 04/24/2016 [facility] [place] Family History No Data Provided for This Section Advance Directives Order Name Results Value Date Source Advance Directives Advance Directives Directive Response Recorded Date/Time Does the patient have an advance directive? No 02/09/19 2:20am If yes, is advance directive on file with [facility]? No 02/09/19 2:20am If not on file with [facility] will patient provide a copy? No 02/09/19 2:20am Do you have a Directive to Physician? No 02/08/19 3:53pm Do you have a Medical Power of Surface Water Technician? No 02/08/19 3:53pm Do you have an out of hospital Do Not Resuscitate Order? No 02/08/19 3:53pm Do you have any special needs we should be aware of? No 02/08/19 3:53pm Do you have a support person here with you today? Yes 02/08/19 3:54pm Did patient receive Notice of Privacy Practices? Yes 02/08/19 3:54pm Did patient receive patient rights and responsibilities? Yes 02/08/19 3:54pm 02/15/2019 [facility] Advance Directives Advance Directives Directive Response Recorded Date/Time Does the patient have an advance directive? No 01/06/19 12:00am If yes, is advance directive on file with [facility]? No 01/06/19 12:00am If not on file with [facility] will patient provide a copy? No 01/06/19 12:00am Do you have a Directive to Physician? Yes 01/05/19 2:05pm Do you have a Medical Power of Surface Water Technician? Yes 01/05/19 2:05pm Do you have an out of hospital Do Not Resuscitate Order? Yes 01/05/19 2:05pm Do you have any special needs we should be aware of? Yes 01/05/19 2:05pm Do you have a support person here with you today? No 01/05/19 2:05pm Did patient receive Notice of Privacy Practices? Yes 01/05/19 2:05pm Did patient receive patient rights and responsibilities? Yes 01/05/19 2:05pm 01/09/2019 [facility] Functional Status No Data Provided for This Section
--- OUTSIDE RECORDS SUMMARY | 2019-04-23 17:18 | XMS REPORT | Summary of Care ---
Author Author [facility] Organization [facility] Address Unknown Phone Unavailable Encounter JOSSELIN White(LENY) [id number] Date(s): 04/19/19 - 04/19/19 [facility] [address] [place] [address]- Discharge Disposition: Home or Self Care Attending Physician: Kelechi Sibley MD Referring Physician: Christopher Summers MD Vital Signs Most recent to 1 oldest [Reference Range]: Height 175.26 cm (04/19/19 10:35 AM) Weight 105.966 kg (04/19/19 10:35 AM) Body Mass Index 34.5 m2 (04/19/19 10:35 AM) Problem List Condition Effective Dates Status Health [...] Reactions, Alerts No Known Medication Allergies Medications allopurinol 300 mg oral tablet 300 mg=1 tab, PO, Daily, # 90 tab, 1 Refill(s) Start Date: 04/19/19 Status: Ordered colchicine 0.6 mg, PO, Daily, 0 Refill(s) Start Date: 04/19/19 Status: Ordered Dulcolax Laxative =1 supp, MI, Daily, PRN constipation, # 5 supp, 0 Refill(s) Start Date: 04/19/19 Status: Ordered methenamine hippurate 1 gm, PO, Daily, 0 Refill(s) Start Date: 04/19/19 Status: Ordered Results No data available for this section [...]
--- NOTE | 2019-04-23 17:48 | NUR ---
TAKEN TO ROOM 4 AT THIS TIME
[2019-04-23 18:01] LABS: BILIRUBIN,URINE NEGATIVE (NEGATIVE); CLARITY,URINE CLEAR (CLEAR); COLOR,URINE YELLOW (YELLOW); KETONES,URINE NEGATIVE (NEGATIVE); LEUKOCYTE ESTERASE ,URINE NEGATIVE (NEGATIVE); NITRITE,URINE NEGATIVE (NEGATIVE); PROTEIN,URINE DIPSTICK NEGATIVE (NEGATIVE); URINE UROBILINOGEN 0.2 mg/dL (0.2 - 1)
[2019-04-23 18:19] LABS: BACTERIA,URINE MODERATE /HPF; EPITHELIAL CELLS,URINE FEW /LPF; HYALINE CASTS 0-1 (0-1)
[2019-04-23 18:20] LABS: BASOPHILS % 0.5 % (0.0-1.0); EOSINOPHILS # (AUTO) 0.1 (0.0-0.4); EOSINOPHILS % 2.2 % (0.0-6.0); HEMOGLOBIN 14.1 g/dL (14.0-18.0); LYMPHOCYTES # (AUTO) 0.8 (1.0-3.2); LYMPHOCYTES % 13.6 % (18.0-39.1); MEAN CORPUSCULAR HEMOGLOBIN 28.3 pg (28-32); MEAN CORPUSCULAR HGB CONC 30.7 g/dL (31-35); MEAN CORPUSCULAR VOLUME 92.4 fL (81-99); MONOCYTES # (AUTO) 0.6 (0.2-0.8); MONOCYTES % 10.3 % (4.4-11.3); NEUTROPHILS # (AUTO) 4.4 (2.1-6.9); NEUTROPHILS % 73.1 % (38.7-80.0); PLATELET COUNT 177 x10e3/uL (140-360); RED BLOOD COUNT 4.98 x10e6/uL (4.3-5.7); RED CELL DISTRIBUTION WIDTH 16.3 % (11.7-14.4)
[2019-04-23] MEDS ORDERED: ALLOPURINOL300 MG PO (18:22)
[2019-04-23] MEDS ORDERED: POTASSIUM CHLO20 ME1 PO (18:22)
[2019-04-23] MEDS ORDERED: ALCLOMETASONE (18:22)
[2019-04-23] MEDS ORDERED: COSENTYX (18:22)
[2019-04-23 18:29] LABS: PARTIAL THROMBOPLASTIN TIME 35.8 seconds (23.8-35.5); PROTHROMBIN TIME 13.7 seconds (11.9-14.5)
[2019-04-23 18:38] LABS: ALBUMIN 3.5 g/dL (3.5-5.0); ALBUMIN/GLOBULIN RATIO 1.1 (0.8-2.0); ANION GAP 13.6 mmol/L (8-16); CALCIUM 9.6 mg/dL (8.4-10.2); CREATININE, SERUM 1.58 mg/dL (0.72-1.25); POTASSIUM 3.6 mmol/L (3.5-5.1)
[2019-04-23 18:55] LABS: CREATINE KINASE MB 3.4 ng/mL (0-5.0)
--- NOTE | 2019-04-23 19:05 | Diagnostic Imaging Report ---
Frontal and lateral views of the chest. HISTORY: Shortness of breath, fluid in both legs, leg swelling COMPARISON: Chest radiograph February 08, 2019. CT of the chest January 05, 2019. DISCUSSION: Lungs: Stable lingular atelectasis versus scarring. No evidence of a new consolidative pneumonia or pulmonary alveolar edema. Pleura: No pleural effusion or pneumothorax. Heart and mediastinum: The cardiomediastinal silhouette appears unremarkable. Mild central pulmonary vascular congestion. Bones and soft tissues: Thoracic kyphosis. DISH (Diffuse idiopathic skeletal hyperostosis). IMPRESSION: 1. Stable lingular atelectasis versus scarring. 2. No new pneumonia or pulmonary alveolar edema. 3. Mild central pulmonary vascular congestion. Signed by: Dr. John Mcgee D.O., M.M.M. on 04/23/2019 7:02 PM
[2019-04-23] MEDS ORDERED: SODIUM CHLORIDE FLUSH 10 ML SYR INJ PRN (19:45)
--- OUTSIDE RECORDS SUMMARY | 2019-04-23 20:50 | XMS REPORT | Continuity of Care Document ---
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 11/20/2017 [facility] M54.9 DORSALGIA, UNSPECIFIED G95.9 DISE Active 06/12/2016 [facility] 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, UNSPECIFIE Active 04/04/2016 [facility] DX: M54.4=LUMBAGO WITH SCIATICA, UNSPECI Active 03/26/2016 [facility] R53.1 - WEAKNESS Active 03/18/2016 [facility] Spinal stenosis, lumbar region without neurogenic claudication 03/12/2018 [facility] Spinal stenosis, cervical region 03/12/2018 [facility] Spinal stenosis, cervicothoracic region 03/12/2018 [facility] Afib [facility] [place] [place] Arthritis Resolved Problem 04/23/2019 [facility] [place] Arthropathy Resolved Problem 04/23/2019 [facility] [place] Atrial fibrillation and flutter Resolved Problem 04/23/2019 [facility], [facility] [place] Backache Resolved Problem 04/23/2019 [facility] [place] Benign prostatic hyperplasia with lower urinary tract symptoms Resolved Problem 04/23/2019 [facility] [place] Bronchitis Resolved Problem 04/23/2019 [facility] [place] Cataract Resolved Problem 04/23/2019 [facility], [facility] [place] Chronic kidney disease (Confirmed) Resolved Problem 04/23/2019 [facility], [facility] [place] COPD Resolved Problem 04/23/2019 [facility], [facility] [place] Diabetes mellitus type 1 Resolved Problem 04/23/2019 [facility], [facility] [place] Diabetes Resolved Problem 04/23/2019 [facility], [facility] [place] Glaucoma Resolved Problem 04/23/2019 [facility], [facility] [place] Gout Resolved Problem 04/23/2019 [facility] [place] Hypertension Resolved Problem 04/23/2019 [facility], [facility] [place] Impotence, organic Resolved Problem 04/23/2019 [facility] [place] Urinary frequency Resolved Problem 04/23/2019 [facility], [facility] [place] Mumps Resolved Problem 04/23/2019 [facility] [place] Neuropathy Resolved Problem 04/23/2019 [facility], [facility] [place] Nocturia Resolved Problem 04/23/2019 [facility], [facility] [place] Obesity Active Problem 04/23/2019 [facility], [facility] [place] Peripheral vascular disease Resolved Problem 04/23/2019 [facility], [facility] [place] Seborrheic dermatitis Resolved Problem 04/23/2019 [facility], [facility] [place] Sleep apnea Resolved Problem 04/23/2019 [facility], [facility] [place] Urgency of urination Resolved Problem 04/23/2019 [facility] [place] Other specified urinary incontinence Resolved Problem 04/23/2019 [facility], [facility] [place] UTI (Confirmed) Resolved Problem 04/23/2019 [facility], [facility] [place] Vertigo Resolved Problem 04/23/2019 [facility], [facility] [place] CHF Active Problem 02/15/2019 [facility] COPD exacerbation Active Problem 02/15/2019 [facility] Chronic renal insufficiency Active Problem 02/15/2019 [facility] Cirrhosis Active Problem 02/15/2019 [facility] Hemoptysis Active Problem 02/15/2019 [facility] Pedal edema Active Problem 02/15/2019 [facility] Pneumonia Active Problem 02/15/2019 [facility] Cellulitis of both lower extremities Active Problem 02/15/2019 [facility] Hypokalemia Active Problem 02/15/2019 [facility] DORSALGIA, UNSPECIFIED Active [facility] DISEASE OF SPINAL CORD, UNSPECIFIED Active [facility] Medications Medication Details Route Status Patient Instructions Ordering Provider Order Date Source allopurinol 300 mg oral tablet 300 mg=1 tab, PO, Daily, # 90 tab, 1 Refill(s) Active 04/19/2019 [facility] methenamine hippurate 1 gm, PO, Daily, 0 Refill(s) Active 04/19/2019 [facility] Dulcolax Laxative =1 supp, [place], Daily, PRN constipation, # 5 supp, 0 Refill(s) Active 04/19/2019 [facility] [place] 0.6 mg, PO, Daily, 0 Refill(s) Active 04/19/2019 [facility] Sucralfate (Carafate) 1 Gm Tablet Before Meals Active [place] 02/15/2019 [facility] Clindamycin Hcl 300 Mg Capsule, 300 Mg Oral Three Times A Day Active 02/15/2019 [facility] Bumex Twice A Day Active [place] 01/09/2019 [facility] Potassium Chloride (K-Dur) 20 Meq Tab.er.prt, 20 Meq Oral Every 12 Hours Active 01/09/2019 [facility] Prednisone 10 Mg Tab, 30 Mg Oral Daily Active 12/30/2018 [facility] Prednisone 20 Mg Tab, 20 Mg Oral Daily Active 12/30/2018 [facility] Prednisone 10 Mg Tab, 10 Mg Oral Daily Active 12/30/2018 [facility] Albuterol Sulfate (Proair Hfa Inhaler*) 8.5 Gm Inh, 3 Inh Active 12/11/2018 [facility] Alclometasone Dipropionate 15 Gm Cream..g., 1 Applic Topically Daily Active 12/11/2018 [facility] Albuterol Sulfate (Proair Hfa Inhaler*) 8.5 Gm Inh, 2 Inh Inhalation Daily Active 12/07/2018 [facility] Clobetasol Propionate 1 Ea/15 Gm Cr, 1 Applic Topically Daily Active 12/07/2018 [facility] Mirabegron (Myrbetriq) 50 Mg Tab.er.24h, 50 Mg Oral Every Morning Active 12/07/2018 [facility] [place] Injection , 140 Mg Intramusc Use As Directed Active 12/07/2018 [facility] Spironolactone (Aldactone) 50 Mg Tablet, 50 Mg Oral As Needed Active 12/07/2018 [facility] Folic Acid 1 Mg Tablet, 1 Mg Oral Twice A Day Active 11/05/2018 [facility] Warfarin Sodium 3 Mg Tablet, 3 Mg Oral Daily Active 11/05/2018 [facility] Azithromycin (Zithromax) 500 Mg Tablet, 500 Mg Oral Daily Active [place] 09/16/2018 [facility] Sulfamethoxazole/Trimethoprim (Bactrim Ds Tablet) 1 Each Tablet, 1 Each Oral Twice A Day Active [place] 09/16/2018 [facility] Albuterol Sulf (Proventil 0.083% Neb) 3 Ml Nebu, 3 Ml Inhalation Every 12 Hours Active 09/13/2018 [facility] Albuterol Sulfate (Proair Hfa Inhaler*) 8.5 Gm Inh, 1 Inh Inhalation Three Times A Day Active 09/13/2018 [facility] Albuterol Sulfate (Proair Hfa Inhaler*) 8.5 Gm Inh, Active 09/13/2018 [facility] Cyanocobalamin (Vitamin B-12) (Vitamin B-12) 2,000 Mcg Tablet.er, 2000 Mcg Weekly Active 09/13/2018 [facility] Duloxetine Hcl (Cymbalta) 30 Mg Capsule.dr, 60 Mg Oral Bedtime Active 09/13/2018 [facility] Fe Fumarate/Vit C/B12-If/Fa (Ferocon Capsule) 1 Each Capsule, 1 Cap Oral Daily Active 09/13/2018 [facility] Formoterol Fumarate (Perforomist) 20 Mcg/2 Ml Vial.neb, 20 Mcg Inhalation Daily Active 09/13/2018 [facility] Liraglutide (Victoza 3-Asad) 0.6 Mg/0.1 Ml Pen.injctr, 1.8 Mg Injection Every Morning Active 09/13/2018 [facility] [place]-3/Dha/Epa/Fish Oil (Fish Oil [place]-3 Softgel) 1 Each Capsule.dr, 1 Tab Oral Twice A Day Active 09/13/2018 [facility] Repaglinide (Prandin) 1 Mg Tab, 0.5 Tab Oral As Needed Active 09/13/2018 [facility] Tamsulosin Hcl 0.4 Mg Cap.er.24h, 0.8 Mg Oral Every 12 Hours Active 09/13/2018 [facility] Testoterone , 1 Ml Active 09/13/2018 [facility] Metoprolol Tartrate (Lopressor) 25 Mg Tab Every 12 Hours Active [place] 06/11/2017 [facility] Azithromycin (Z-Asad) 250 Mg Tablet, 500 Mg Oral Daily Active [place] 06/11/2017 [facility] Docusate Sodium (Colace) 100 Mg Capsule, 100 Mg Oral Three Times A Day Active [place] 06/11/2017 [facility] Furosemide 40 Mg Tablet, 80 Mg Oral Bid@06,18 Active [place] 06/11/2017 [facility] Metoprolol Tartrate 25 Mg Tablet, 12.5 Mg Oral Twice A Day Active 06/11/2017 [facility] Polyethylene Glycol 3350 (Miralax) 17 Gm Powd.pack, 17 Gm Oral Twice A Day Active [place] 06/11/2017 [facility] Prednisone 20 Mg Tab, 40 Mg Oral Daily Active [place] 06/11/2017 [facility] Warfarin Sodium (Coumadin) 5 Mg Tablet, 5 Mg Oral Daily At 1700 Active [place] 06/11/2017 [facility] Warfarin Sodium (Coumadin) 5 Mg Tablet, 3 Mg Oral Today At 5:00PM Active 06/11/2017 [facility] Furosemide (Lasix) 40 Mg Tablet, 2 Mg Oral Twice A Day Active 06/04/2017 [facility] Furosemide (Lasix) 40 Mg Tablet, 80 Mg Oral Twice A Day Active 06/04/2017 [facility] Ibuprofen 400 Mg Tablet, 600 Mg Oral Every 6 Hours as needed for Pain Active 06/04/2017 [facility] Mucas , 400 Mcg Oral Twice A Day Active 06/04/2017 [facility] Servent Disk , 50 Mcg Inhalation Twice A Day Active 06/04/2017 [facility] Warfarin Sodium (Coumadin) 5 Mg Tablet, 3 Mg Oral Today At 5:00PM Active 06/04/2017 [facility] Warfarin Sodium (Coumadin) 2 Mg Tablet, 2 Mg Oral Daily Active 06/04/2017 [facility] Warfarin Sodium (Coumadin) 2.5 Mg Tablet, 2.5 Mg Oral Daily Active 06/04/2017 [facility] Warfarin Sodium (Coumadin) 5 Mg Tablet, 5 Mg Oral Today At 5:00PM Active 06/04/2017 [facility] Aspirin 325 Mg Tablet, 81 Mg Oral Daily Active 05/07/2017 [facility] Bupivacaine Hcl (Marcaine) 2.5 Mg/1 Ml Vial, 1.143 Mg Daily Active 05/07/2017 [facility] Carisoprodol 350 Mg Tablet, 350 Mg Oral as needed Active 05/07/2017 [facility] Fenofibric Acid (Choline) (Trilipix) 135 Mg Capsule., 135 Mg Oral Daily Active 05/07/2017 [facility] Hydrocodone Bit/Acetaminophen (Hydrocodone-Apap 10-325 Mg Tab) 1 Each Tablet, 1 Each Oral as needed Active 05/07/2017 [facility] Hydrocodone Bit/Acetaminophen (Hydrocodon-Acetaminophn 10-325) 1 Each Tablet, 10 Mg Oral As Needed Active 05/07/2017 [facility] Latanoprost 2.5 Ml Drops, 2.5 Ml Ophthalmic Daily Active 05/07/2017 [facility] Linagliptin (Tradjenta) 5 Mg Tablet, 5 Mg Oral Daily Active 05/07/2017 [facility] Morphine Pump , 12.7 Mg Daily Active 05/07/2017 [facility] Multivitamin (Multivitamins) 1 Each Tab.chew, Oral Daily Active 05/07/2017 [facility] Omeprazole 40 Mg Capsule.dr, 40 Mg Oral Daily Active 05/07/2017 [facility] Polyethylene Glycol 3350 (Clearlax) 17 Gm Powd.pack, As Needed Active 05/07/2017 [facility] Testosterone (Testopel) 75 Mg Pellet.ea., 75 Mg Active 05/07/2017 [facility] Torsemide 20 Mg Tablet, 20 Mg Oral Twice A Day Active 05/07/2017 [facility] Zolpidem Tartrate (Ambien) 10 Mg Tablet, 10 Mg Oral Bedtime Active 05/07/2017 [facility] Axiron , 30 Mg Daily Active 09/01/2013 [facility] Caltrate +D , Oral Twice A Day Active 09/01/2013 [facility] Furosemide 40 Mg Tablet, 40 Mg Oral Daily Active 09/01/2013 [facility] Marcaine , Daily Active 09/01/2013 [facility] Morphine Pump , Daily Active 09/01/2013 [facility] Zolpidem Tartrate (Ambien Cr) 12.5 Mg Tab.mphase, 12.5 Mg Oral Daily Active 09/01/2013 [facility] Aclometasone 0.05% 1 Each Daily Active [facility] Albuterol Sulfate 0.63 Mg/3 Ml Vial.neb Twice A Day Active [facility] Albuterol Sulfate (Proair Hfa Inhaler*) 8.5 Gm Inh Daily Active PATIENT TAKES 3-5 PUFFS INHALATION [facility] Alprazolam 0.5 Mg Tab.rapdis As Needed Active [facility] Aspirin (Aspir 81) 81 Mg Tablet. Daily Active [facility] Baclofen 10 Mg Tablet Three Times A Day Active [facility] Budesonide 0.5 Mg/2 Ml Ampul.neb Twice A Day Active [facility] Carisoprodol (Soma) 350 Mg Tablet Daily as needed for Pain Active [facility] Cholecalciferol (Vitamin D3) (Vitamin D3) 2,000 Unit Capsule Bedtime Active [facility] Clobetasol Propionate 1 Ea/15 Gm Cr Daily Active [facility] Clopidogrel Bisulfate (Clopidogrel) 75 Mg Tablet Daily Active [facility] Cosentyx Qmonth Active [facility] Dilaudid Pain Pump Use As Directed Active DILAUDID 6.225MG AND 0.9773MG MARCAINE DAILY DELIVERED BY PAIN PUMP [facility] Fe Fumarate/Vit C/B12-If/Fa (Ferocon Capsule) 1 Each Capsule Daily Active [facility] Folic Acid 1 Mg Tablet Twice A Day Active [facility] Guaifenesin (Mucus Relief) 400 Mg Tablet Twice A Day Active [facility] Hydromorphone Hcl 2 Mg Tablet As Needed as needed for Prn Active [facility] Latanoprost 2.5 Ml Drops Bedtime Active [facility] Levothyroxine Sodium 50 Mcg Tablet Daily Active [facility] Liothyronine Sodium 5 Mcg Tablet Every Morning Active [facility] Mirabegron (Myrbetriq) 50 Mg Tab.er.24h Daily Active [facility] Pantoprazole Sodium (Protonix) 40 Mg Tablet. Bedtime Active [facility] Pramipexole Di-Hcl (Pramipexole Dihydrochloride) 0.25 Mg Tablet Bedtime Active [facility] Psyllium Husk (Wal-Mucil) 0.52 Gm Capsule Daily Active [facility] [place] Injection Use As Directed Active PATIENT TAKES EVERY 2 WEEKS [facility] Rivaroxaban (Xarelto) 10 Mg Tablet Bedtime Active [facility] Ropinirole Hcl 0.25 Mg Tablet Bedtime Active [facility] Sertraline Hcl 50 Mg Tablet Bedtime Active [facility] Sodium Chloride For Inhalation (Hyper-Lamine) 4 Ml Vial.neb Daily as needed for Nasal Congestion Active [facility] Spironolact/Hydrochlorothiazid (Aldactazide 50-50 Tablet) 1 Each Tablet Daily Active [facility] Testosterone Cypionate 200 Mg/1 Ml Vial Active every 2 weeks [facility] Vitamin B12 Use As Directed Active ONCE A WEEK [facility] Aclovate Daily Active [facility] Alprazolam 0.5 Mg Tablet Bedtime Active [facility] Bumetanide 2 Mg Tablet Twice A Day Active [facility] Cosentyx 150 Mg .monthly Active [facility] Hydromorphone/Bupiv/0.9NACL/Pf (Hydromor-Bupiva 10 Mcg-0.0625%) 100 Ml Pump.resvr Daily Active [facility] Metolazone 5 Mg Tablet Active TAKE 30 MINUTES PRIOR TO BUMEX DOSE [facility] Rivaroxaban (Xarelto) 15 Mg Tablet Daily Active [facility] Allergies, Adverse Reactions, Alerts Substance Category Reaction Severity Reaction type Status Date Reported Comments Source No Known Drug Allergies Unknown Allergy to Substance Active 02/08/2019 [facility] No Known Medication Allergies Assertion Drug allergy Medical Group Immunizations No Data Provided for This Section Results Order Name Results Value Reference Range Date Interpretation Comments Source Capillary blood glucose measurement by glucometer (mass/volume) 126 70 - 120 02/15/2019 [facility] Blood leukocytes automated count (number/volume) 8.88 4.8 - 10.8 02/15/2019 [facility] Blood erythrocytes automated count (number/volume) 6.03 4.3 - 5.7 02/15/2019 [facility] Blood hemoglobin measurement (moles/volume) 16.4 14.0 - 18.0 02/15/2019 [facility] Automated blood hematocrit (volume fraction) 54.5 38.2 - 49.6 02/15/2019 [facility] Automated erythrocyte mean corpuscular volume 90.4 81 - 99 02/15/2019 [facility] Automated erythrocyte mean corpuscular hemoglobin (mass per erythrocyte) 27.2 28 - 32 02/15/2019 [facility] Automated erythrocyte mean corpuscular hemoglobin concentration measurement (mass/volume) 30.1 31 - 35 02/15/2019 [facility] RDW BldCo-Rto 16.2 11.7 - 14.4 02/15/2019 [facility] Automated blood platelet count (count/volume) 293 140 - 360 02/15/2019 [facility] Automated blood segmented neutrophil count as percentage of total leukocytes 65.2 38.7 - 80.0 02/15/2019 [facility] Automated blood lymphocyte count as percentage ot total leukocytes 19.8 18.0 - 39.1 02/15/2019 [facility] Automated blood monocyte count as percentage of total leukocytes 11.4 4.4 - 11.3 02/15/2019 [facility] Automated blood eosinophil count as percentage of total leukocytes 2.1 0.0 - 6.0 02/15/2019 [facility] Automated blood basophil count as percentage of total leukocytes 1.0 0.0 - 1.0 02/15/2019 [facility] IM GRANULOCYTES % 0.5 0.0 - 1.0 02/15/2019 [facility] Automated blood neutrophil count 5.8 2.1 - 6.9 02/15/2019 [facility] Blood lymphocytes count (number/volume) 1.8 1.0 - 3.2 02/15/2019 [facility] Blood monocytes automated count (number/volume) 1.0 0.2 - 0.8 02/15/2019 [facility] Automated blood eosinophil count 0.2 0.0 - 0.4 02/15/2019 [facility] Automated blood basophil count (count/volume) 0.1 0.0 - 0.1 02/15/2019 [facility] Absolute Immature Granulocyte (auto 0.04 0 - 0.1 02/15/2019 [facility] Prothrombin time (PT) in platelet poor plasma by coagulation assay 13.4 11.9 - 14.5 02/15/2019 [facility] INR in Platelet poor plasma by Coagulation assay 0.97 02/15/2019 [facility] Activated partial thromboplastin time (aPTT) in platelet poor plasma bycoagulation assay 38.9 23.8 - 35.5 02/15/2019 [facility] Serum or plasma sodium measurement (moles/volume) 139 136 - 145 02/15/2019 [facility] Serum or plasma potassium measurement (moles/volume) 4.7 3.5 - 5.1 02/15/2019 [facility] Serum or plasma chloride measurement (moles/volume) 84 98 - 107 02/15/2019 [facility] Serum or plasma carbon dioxide, total measurement (moles/volume) 42 22 - 29 02/15/2019 [facility] Serum or plasma anion gap 17.7 8 - 16 02/15/2019 [facility] Serum or plasma urea nitrogen measurement (mass/volume) 68 7 - 26 02/15/2019 [facility] Serum or plasma creatinine measurement (mass/volume) 2.16 0.72 - 1.25 02/15/2019 [facility] Serum or plasma urea nitrogen/creatinine mass ratio 31 6 - 25 02/15/2019 [facility] Estimated glomerular filtration rate (GFR) determination 30 60 02/15/2019 [facility] Glucose measurement 140 74 - 118 02/15/2019 [facility] Serum or plasma calcium measurement (mass/volume) 10.4 8.4 - 10.2 02/15/2019 [facility] Serum or plasma magnesium measurement (mass/volume) 3.3 1.3 - 2.1 02/15/2019 [facility] BNP Bld-mCnc 91.6 0 - 100 02/15/2019 [facility] Hemoglobin A1c Percent 6.2 4.0 - 7.0 02/12/2019 [facility] Phosphorus measurement 3.5 2.3 - 4.7 02/12/2019 [facility] Serum or plasma thyroxine (T4) free measurement (mass/volume) 0.92 0.9 - 1.8 02/12/2019 [facility] Serum or plasma thyrotropin measurement by detection limit <=0.005 miu/l (units/volume) 1.875 0.350 - 4.940 02/12/2019 [facility] Serum or plasma creatine kinase measurement (enzymatic activity/volume) 127 30 - 200 02/11/2019 [facility] Serum or plasma creatine kinase MB measurement (mass/volume) 2.50 0 - 5.0 02/11/2019 [facility] Troponin I measurement by highly sensitive enzyme immunoassay 0.017 0 - 0.300 02/11/2019 [facility] Serum or plasma total bilirubin measurement (mass/volume) 0.6 0.2 - 1.2 02/09/2019 [facility] Aspartate Amino Transf (AST/SGOT) 15 5 - 34 02/09/2019 [facility] Serum or plasma alanine aminotransferase measurement (enzymatic activity/volume) 10 0 - 55 02/09/2019 [facility] Serum or plasma protein measurement (mass/volume) 6.7 6.5 - 8.1 02/09/2019 [facility] Serum or plasma albumin measurement (mass/volume) 3.4 3.5 - 5.0 02/09/2019 [facility] Plasma globulin measurement (mass/volume) 3.3 2.3 - 3.5 02/09/2019 [facility] Serum or plasma albumin/globulin mass ratio 1.0 0.8 - 2.0 02/09/2019 [facility] Serum or plasma alkaline phosphatase measurement (enzymatic activity/volume) 78 40 - 150 02/09/2019 [facility] Urine color determination YELLOW YELLOW 02/08/2019 [facility] Urine clarity CLEAR CLEAR 02/08/2019 [facility] Specific gravity of Urine by Test strip 1.010 1.010 - 1.025 02/08/2019 [facility] Urine pH measurement by automated test strip 7 5 - 7 02/08/2019 [facility] Urine leukocyte esterase detection by dipstick NEGATIVE NEGATIVE 02/08/2019 [facility] Urine nitrite detection NEGATIVE NEGATIVE 02/08/2019 [facility] Urine protein measurement by test strip (mass/volume) NEGATIVE NEGATIVE 02/08/2019 [facility] Urine glucose detection NEGATIVE NEGATIVE 02/08/2019 [facility] Urine ketones detection by automated test strip NEGATIVE NEGATIVE 02/08/2019 [facility] Urine urobilinogen measurement by test strip (mass/volume) 0.2 0.2 - 1 02/08/2019 [facility] Urine total bilirubin measurement (mass/volume) NEGATIVE NEGATIVE 02/08/2019 [facility] Urine erythrocytes detection NEGATIVE NEGATIVE 02/08/2019 [facility] Automated urine sediment leukocyte count by microscopy (number/high power field) NONE 0 - 5 02/08/2019 [facility] Erythrocytes detection in urine sediment by light microscopy NONE 0 - 5 02/08/2019 [facility] Bacteria detection in urine sediment by light microscopy NONE NONE 02/08/2019 [facility] Epithelial cells detection in urine sediment by light microscopy RARE NONE 02/08/2019 [facility] Capillary blood glucose measurement by glucometer (mass/volume) 151 70 - 120 01/09/2019 [facility] Blood leukocytes automated count (number/volume) 8.53 4.8 - 10.8 01/09/2019 [facility] Blood erythrocytes automated count (number/volume) 6.08 4.3 - 5.7 01/09/2019 [facility] Blood hemoglobin measurement (moles/volume) 16.4 14.0 - 18.0 01/09/2019 [facility] Automated blood hematocrit (volume fraction) 54.7 38.2 - 49.6 01/09/2019 [facility] Automated erythrocyte mean corpuscular volume 90.0 81 - 99 01/09/2019 [facility] Automated erythrocyte mean corpuscular hemoglobin (mass per erythrocyte) 27.0 28 - 32 01/09/2019 [facility] Automated erythrocyte mean corpuscular hemoglobin concentration measurement (mass/volume) 30.0 31 - 35 01/09/2019 [facility] RDW BldCo-Rto 17.9 11.7 - 14.4 01/09/2019 [facility] Automated blood platelet count (count/volume) 220 140 - 360 01/09/2019 [facility] Automated blood segmented neutrophil count as percentage of total leukocytes 87.2 38.7 - 80.0 01/09/2019 [facility] Automated blood lymphocyte count as percentage ot total leukocytes 7.0 18.0 - 39.1 01/09/2019 [facility] Automated blood monocyte count as percentage of total leukocytes 4.6 4.4 - 11.3 01/09/2019 [facility] Automated blood eosinophil count as percentage of total leukocytes 0.0 0.0 - 6.0 01/09/2019 [facility] Automated blood basophil count as percentage of total leukocytes 0.1 0.0 - 1.0 01/09/2019 [facility] IM GRANULOCYTES % 1.1 0.0 - 1.0 01/09/2019 [facility] Automated blood neutrophil count 7.4 2.1 - 6.9 01/09/2019 [facility] Blood lymphocytes count (number/volume) 0.6 1.0 - 3.2 01/09/2019 [facility] Blood monocytes automated count (number/volume) 0.4 0.2 - 0.8 01/09/2019 [facility] Automated blood eosinophil count 0.0 0.0 - 0.4 01/09/2019 [facility] Automated blood basophil count (count/volume) 0.0 0.0 - 0.1 01/09/2019 [facility] Absolute Immature Granulocyte (auto 0.09 0 - 0.1 01/09/2019 [facility] Serum or plasma sodium measurement (moles/volume) 140 136 - 145 01/09/2019 [facility] Serum or plasma potassium measurement (moles/volume) 4.4 3.5 - 5.1 01/09/2019 [facility] Serum or plasma chloride measurement (moles/volume) 91 98 - 107 01/09/2019 [facility] Serum or plasma carbon dioxide, total measurement (moles/volume) 40 22 - 29 01/09/2019 [facility] Serum or plasma anion gap 13.4 8 - 16 01/09/2019 [facility] Serum or plasma urea nitrogen measurement (mass/volume) 33 7 - 26 01/09/2019 [facility] Serum or plasma creatinine measurement (mass/volume) 1.41 0.72 - 1.25 01/09/2019 [facility] Serum or plasma urea nitrogen/creatinine mass ratio 23 6 - 25 01/09/2019 [facility] Estimated glomerular filtration rate (GFR) determination 49 60 01/09/2019 [facility] Glucose measurement 154 74 - 118 01/09/2019 [facility] Serum or plasma calcium measurement (mass/volume) 8.8 8.4 - 10.2 01/09/2019 [facility] Serum or plasma magnesium measurement (mass/volume) 2.5 1.3 - 2.1 01/09/2019 [facility] BNP Bld-mCnc 381.1 0 - 100 01/09/2019 [facility] Differential Total Cells Counted 100 01/08/2019 [facility] Manual blood neutrophils/100 leukocytes 91 40 - 74 01/08/2019 [facility] Manual blood lymphocytes/100 leukocytes 6 19 - 48 01/08/2019 [facility] Manual blood monocytes/100 leukocytes 3 3.4 - 9.0 01/08/2019 [facility] Blood platelets count by estimate (number/volume) ADEQUATE 01/08/2019 [facility] Platelet morphology NORMAL 01/08/2019 [facility] RBC morphology NORMAL 01/08/2019 [facility] Differential Total Cells Counted 100 01/08/2019 [facility] Manual blood neutrophils/100 leukocytes 91 40 - 74 01/08/2019 [facility] Manual blood lymphocytes/100 leukocytes 6 19 - 48 01/08/2019 [facility] Manual blood monocytes/100 leukocytes 3 3.4 - 9.0 01/08/2019 [facility] Blood platelets count by estimate (number/volume) ADEQUATE 01/08/2019 [facility] Platelet morphology NORMAL 01/08/2019 [facility] RBC morphology NORMAL 01/08/2019 [facility] Urine color determination STRAW YELLOW 01/07/2019 [facility] Urine clarity CLEAR CLEAR 01/07/2019 [facility] Specific gravity of Urine by Test strip 1.010 1.010 - 1.025 01/07/2019 [facility] Urine pH measurement by automated test strip 6 5 - 7 01/07/2019 [facility] Urine leukocyte esterase detection by dipstick NEGATIVE NEGATIVE 01/07/2019 [facility] Urine nitrite detection NEGATIVE NEGATIVE 01/07/2019 [facility] Urine protein measurement by test strip (mass/volume) NEGATIVE NEGATIVE 01/07/2019 [facility] Urine glucose detection NEGATIVE NEGATIVE 01/07/2019 [facility] Urine ketones detection by automated test strip NEGATIVE NEGATIVE 01/07/2019 [facility] Urine urobilinogen measurement by test strip (mass/volume) 0.2 0.2 - 1 01/07/2019 [facility] Urine total bilirubin measurement (mass/volume) NEGATIVE NEGATIVE 01/07/2019 [facility] Urine erythrocytes detection NEGATIVE NEGATIVE 01/07/2019 [facility] Automated urine sediment leukocyte count by microscopy (number/high power field) 0-5 0 - 5 01/07/2019 [facility] Erythrocytes detection in urine sediment by light microscopy NONE 0 - 5 01/07/2019 [facility] Bacteria detection in urine sediment by light microscopy NONE NONE 01/07/2019 [facility] Epithelial cells detection in urine sediment by light microscopy MODERATE NONE 01/07/2019 [facility] Transitional cells detection in urine sediment by light microscopy RARE NONE 01/07/2019 [facility] Hyaline casts detection in urine sediment by light microscopy >15 0 - 1 01/07/2019 [facility] Transitional cells detection in urine sediment by light microscopy RARE NONE 01/07/2019 [facility] Hyaline casts detection in urine sediment by light microscopy >15 0 - 1 01/07/2019 [facility] Serum or plasma creatine kinase measurement (enzymatic activity/volume) 66 30 - 200 01/06/2019 [facility] Serum or plasma creatine kinase MB measurement (mass/volume) 2.50 0 - 5.0 01/06/2019 [facility] Troponin I measurement by highly sensitive enzyme immunoassay 0.005 0 - 0.300 01/06/2019 [facility] Hemoglobin A1c Percent 6.2 4.0 - 7.0 01/06/2019 [facility] Serum or plasma thyroxine (T4) free measurement (mass/volume) 0.76 0.9 - 1.8 01/06/2019 [facility] Serum or plasma thyrotropin measurement by detection limit <=0.005 miu/l (units/volume) 0.739 0.350 - 4.940 01/06/2019 [facility] Procalcitonin (PCT) level 0.07 0.00 - 0.08 01/06/2019 [facility] Procalcitonin (PCT) level 0.07 0.00 - 0.08 01/06/2019 [facility] Arterial blood pH measurement 7.35 7.31 - 7.41 01/05/2019 [facility] pCO2 BldA 66 41 - 51 01/05/2019 [facility] pCO2 BldA 98 80 - 105 01/05/2019 [facility] Arterial blood bicarbonate measurement (moles/volume) 36 - 01/05/2019 [facility] Arterial blood base excess by calculation 10.0 -2 - 3 - 2 01/05/2019 [facility] Arterial blood oxygen saturation measurement 97.0 95 - 98 01/05/2019 [facility] FiO2 35 01/05/2019 [facility] Arterial blood pH measurement 7.35 7.31 - 7.41 01/05/2019 [facility] pCO2 BldA 66 41 - 51 01/05/2019 [facility] pCO2 BldA 98 80 - 105 01/05/2019 [facility] Arterial blood bicarbonate measurement (moles/volume) 36 23 - 28 01/05/2019 [facility] Arterial blood base excess by calculation 10.0 -2 - 3 - 2 01/05/2019 [facility] Arterial blood oxygen saturation measurement 97.0 95 - 98 01/05/2019 [facility] FiO2 35 01/05/2019 [facility] Prothrombin time (PT) in platelet poor plasma by coagulation assay 16.2 11.9 - 14.5 01/05/2019 [facility] INR in Platelet poor plasma by Coagulation assay 1.24 01/05/2019 [facility] Activated partial thromboplastin time (aPTT) in platelet poor plasma bycoagulation assay 38.8 23.8 - 35.5 01/05/2019 [facility] Lactic Acid Level 13.5 4.5 - 19.8 01/05/2019 [facility] Serum or plasma total bilirubin measurement (mass/volume) 0.6 0.2 - 1.2 01/05/2019 [facility] Aspartate Amino Transf (AST/SGOT) 17 5 - 34 01/05/2019 [facility] Serum or plasma alanine aminotransferase measurement (enzymatic activity/volume) 14 0 - 55 01/05/2019 [facility] Serum or plasma protein measurement (mass/volume) 6.6 6.5 - 8.1 01/05/2019 [facility] Serum or plasma albumin measurement (mass/volume) 3.5 3.5 - 5.0 01/05/2019 [facility] Plasma globulin measurement (mass/volume) 3.1 2.3 - 3.5 01/05/2019 [facility] Serum or plasma albumin/globulin mass ratio 1.1 0.8 - 2.0 01/05/2019 [facility] Serum or plasma alkaline phosphatase measurement (enzymatic activity/volume) 106 40 - 150 01/05/2019 [facility] Blood culture NO GROWTH AFTER 5 DAYS, FINAL REPORT 01/05/2019 [facility] Lactic Acid Level 13.5 4.5 - 19.8 01/05/2019 [facility] Urine creatinine measurement (mass/volume) 48.99 63 - 166 12/12/2018 [facility] Random urine protein/creatinine ratio 0.41 12/12/2018 [facility] Random urine protein/creatinine ratio 0.41 12/12/2018 [facility] Urine protein measurement (mass/volume) 20.3 1 - 14 12/12/2018 [facility] Blood hypochromia detection by light microscopy SLIGHT 09/15/2018 [facility] Blood ovalocytes detection by light microscopy FEW 09/15/2018 [facility] Blood ovalocytes detection by light microscopy FEW 09/15/2018 [facility] Giant platelet detection FEW 09/15/2018 [facility] Phosphorus measurement 2.9 2.3 - 4.7 08/04/2018 [facility] Urine potassium measurement (moles/volume) 24.1 08/01/2018 [facility] CHEM PANEL eGFR 55 06/24/2016 Result Comment: [...] should be multiplied by the estimated BMI. [facility] CHEM PANEL POC Creatinine 1.3 0.5 - 1.4 06/24/2016 [facility] CHEM PANEL eGFR 55 04/10/2016 Result [...] should be multiplied by the estimated BMI. 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 Total exam LPR=3991 mGy-cm. Impression: 1. Unremarkable barium swallow esophagram [...] bilateral neural foraminal narrowing at L4-L5. SL: [id number] 12/04/2017 [facility] Spine cervical wo contrast MRI Study: [...] foraminal narrowing, left greater than right. SL: [id number] 12/04/2017 [facility] Hip bilat w pelvis and [...] lower lumbar spine partially visualized. 04/23/2017 [facility] Thoracic w/wo contrast MRI EXAM: Spine [...] nerve sheath tumor, or epidermoid cyst. SL: [id number] 06/24/2016 [facility] Spine lumbar w/wo contrast MRI Patient Name: STEVE BENEDICT : 1945; Age: 70 years y/o Male MR: [id number] Study: Spine lumbar w/wo contrast MRI 06/24/2016 [...] compatible with acute on chronic denervation. SL: [id number] 06/24/2016 [facility] thoracic wo contrast CT CT THORACIC [...] 2. No acute abnormalities are visualized. SL:06/19/2016 [facility] lumbar wo contrast CT CT THORACIC [...] 2. No acute abnormalities are visualized. SL:06/19/2016 [facility] cervical 2 or 3 view DX [...] 2. No acute fracture or malalignment. 04/23/2016 [facility] Thoracic w/wo contrast MRI MRI THORACIC SPINE [...] and multiple bilateral renal cysts. SL:16 04/10/2016 [facility] Spine lumbar w/wo contrast MRI EXAM: [...] smoking and anemia among other etiologies. SL: [id number] 03/28/2016 [facility] Consultation Notes No Data Provided for This Section Discharge Summaries No Data Provided for This Section History and Physicals No Data Provided for This Section Vital Signs Vital Sign Value Date Comments Source BMI Calculated 34.5 04/19/2019 [facility] Height 175.26 cm 04/19/2019 [facility] Weight 105.966 04/19/2019 [facility] Encounters Location Location Details Encounter Type Encounter Number Reason For Visit Attending Provider ADM Date DC Date Status Source [facility] [place] [facility] [id number] Monique Louy 03/06/2016 03/07/2016 [facility] Outpatient [id number] Christopher Summers 03/28/2016 03/29/2016 [facility] Outpatient [facility] [place] [facility] [id number] Angel Martínez 04/02/2016 04/03/2016 [facility] Outpatient [id number] Elida Valenzuela 04/10/2016 04/11/2016 [facility] Outpatient [facility] - [place] Out[facility] Di[facility] [id number] Monique Brianna 04/23/2016 04/24/2016 [facility] Outpatient [id number] FADI DANIEL 06/06/2016 [facility] Outpatient [id number] Fadi Daniel Jr 06/19/2016 06/20/2016 [facility] Outpatient [id number] Fadi Daniel Jr 06/24/2016 06/25/2016 [facility] Outpatient [id number] FADI DANIEL 07/11/2016 [facility] Outpatient Imaging - [place] [facility] [id number] Mila Robert 04/23/2017 04/24/2017 [facility] Outpatient [id number] Oleksandr Whitt 12/05/2017 12/05/2017 [facility] Discharged Inpatient [id number] HAILEE HERNANDEZ MD 08/02/2018 08/05/2018 [facility] Discharged Inpatient [id number] ROSALIE MEDINA MD 09/13/2018 09/16/2018 [facility] Discharged Inpatient (obs) [id number] HAILEE HERNANDEZ MD 11/06/2018 11/07/2018 [facility] Outpatient [id number] CARLA REYNAGA 11/30/2018 [facility] [id number] HAILEE HERNANDEZ MD 12/08/2018 [facility] Discharged Inpatient [id number] ALINA PULIDO MD 12/13/2018 12/15/2018 [facility] Outpatient [id number] URODYNAMICS 12/16/[address] [facility] Outpatient [id number] [facility] 12/22/2018 [facility] Outpatient [facility] - [place] Out[facility] Diag Services [id number] Mila Jones 12/28/2018 12/29/2018 [facility] [place] Discharged Inpatient (obs) [id number] HAILEE HERNANDEZ MD 12/30/2018 12/31/2018 [facility] Discharged Inpatient [id number] ROSALIE MEDINA MD 01/05/2019 01/09/2019 [facility] Outpatient [id number] [facility] 02/02/[address] [facility] Discharged Inpatient [id number] ROSALIE MEDINA MD 02/08/2019 02/15/2019 [facility] Outpatient [id number] [facility] 04/19/2019 [facility] Outpatient [id number] [facility] 04/19/2019 04/20/2019 [facility] Out[facility] [id number] NURSE VISIT 04/21/2019 [facility] Pre-Reg [id number] Christopher Summers 04/21/2019 04/21/2019 [facility] Outpatient [id number] [facility] 05/04/[address] [facility] Outpatient [id number] -URODYNAMICS, 06/08/[address] [facility] Outpatient [id number] [facility] 06/14/[address] [facility] Procedures Procedure Code Date Perfomer Comments Source X-ray of chest, single view [id number] 02/08/2019 [facility] US abdomen complete [id number] 01/06/2019 [facility] Computed tomography of chest with contrast [id number] 01/05/2019 [facility] PRQ CARD STENT W/ANGIO 1 VSL [id number] 12/08/2018 [facility] CORONARY ARTERY ANGIO S&I [id number] 12/08/2018 [facility] PRQ CARD STENT W/ANGIO 1 VSL [id number] 11/06/2018 [facility] CORONARY ARTERY ANGIO S&I [id number] 11/06/2018 [facility] X-ray of chest, two views [id number] 09/13/2018 [facility] Cystoscopy [id number] 08/25/2018 [facility] Cystoscopy [id number] 08/25/2018 [facility] [place] X-ray of chest, two views [id number] 07/31/2018 [facility] Ultrasound, renal [id number] 07/31/2018 [facility] Complex uroflowmetry [id number] 03/30/2018 [facility] Complex uroflowmetry [id number] 03/30/2018 [facility] [place] Catheter replacement [id number] [facility] Fusion<sup>1</sup> [id number] cervical fusion done on 09/11/[address] Nilo Adames [facility] Prostate manipulation [id number] [facility] Stent replacement [id number] [facility] Catheter replacement [id number] [facility] [place] Fusion<sup>1</sup> [id number] cervical fusion done on 09/11/[address] Nilo Adames [facility] [place] Prostate manipulation [id number] [facility] [place] Stent replacement [id number] [facility] [place] Catheter replacement [id number] [facility] Fusion<sup>1</sup> [id number] cervical fusion done on 09/11/[address] Nilo Adames [facility] Prostate manipulation [id number] [facility] Stent replacement [id number] [facility] Assessment and Plan No Data [...] 1-2 WEEKS CONTINUE WITH THICKENED LIQUIDS 02/15/2019 [facility] Discharge Date 01/09/19 1:42pm Disposition HOME, SELF-CARE Instructions/Education Provided Cirrhosis COPD Prescriptions See Medication Section Referrals HAILEE HERNANDEZ MD (Cardiology) Order Date: 7-10 Days Entered Date: 01/09/2019 12:33pm Address: [address] [place] [address] JOHNSON AMEZCUA MD (Internal Medicine) Order Date: 1-2 Weeks Entered Date: 01/09/2019 12:33pm Address: [address] [place] [address] [address] [place] [address] Additional Instructions/Education FOLLOW UP WITH PCP IN 1-2 WEEKS FOLLOW UP WITH NEPHROLOGY IN 1-2 WEEKS FOLLOW UP WITH DR BLACK IN 1-2 WEEKS FOLLOW UP WITH CARDIOLOGY (DR. HERNANDEZ) NEXT WEEK CALL EACH OFFICE TO SCHEDULE AN APPOINTMENT 01/09/2019 [facility] Social History Social History Date Source Social [...] Start Date Stop Date Former smoker 02/15/2019 [facility] Social History TypeResponse Smoking Status Former smoker; [...] 07/11/2016 [facility] Social History TypeResponse 04/24/2016 [facility] [place] Family History No Data Provided for This Section Advance Directives Order Name Results Value Date Source Advance Directives Advance Directives Directive Response Recorded Date/Time Does the patient have an advance directive? No 02/09/19 2:20am If yes, is advance directive on file with [facility]? No 02/09/19 2:20am If not on file with [facility] will patient provide a copy? No 02/09/19 2:20am Do you have a Directive to Physician? No 02/08/19 3:53pm Do you have a Medical Power of Medical Lab Specialist? No 02/08/19 3:53pm Do you have an [...] rights and responsibilities? Yes 02/08/19 3:54pm 02/15/2019 [facility] Advance Directives Advance Directives Directive Response Recorded Date/Time Does the patient have an advance directive? No 01/06/19 12:00am If yes, is advance directive on file with [facility]? No 01/06/19 12:00am If not on file with [facility] will patient provide a copy? No 01/06/19 12:00am Do you have a Directive to Physician? Yes 01/05/19 2:05pm Do you have a Medical Power of Medical Lab Specialist? Yes 01/05/19 2:05pm Do you have an [...] rights and responsibilities? Yes 01/05/19 2:05pm 01/09/2019 [facility] Functional Status No Data Provided for This Section
[2019-04-23] MEDS ORDERED: FUROSEMIDE INJ 10 MG/ML 4 ML VIAL IV SCH (21:00)
[2019-04-23 21:55] VITALS: BP 146/77
[2019-04-23] MEDS: ALBUTEROL/IPRATROPIUM 3 ML NEB NEB PRN (23:50)
[2019-04-24] VITALS (8 sets, daily range): BP systolic 108–146; BP diastolic 55–77
[2019-04-24] MEDS ORDERED: ALPRAZOLAM 0.5 MG TAB PO PRN (06:15)
[2019-04-24] MEDS ORDERED: BACLOFEN 10 MG TAB PO PRN (06:15)
[2019-04-24] MEDS ORDERED: METOPROLOL TARTRATE 25 MG TAB PO SCH (06:15)
[2019-04-24] MEDS ORDERED: ACETAMINOPHEN 325 MG TAB PO PRN (06:30)
[2019-04-24] MEDS ORDERED: ALBUTEROL/IPRATROPIUM 3 ML NEB NEB PRN (06:30)
[2019-04-24] MEDS ORDERED: ONDANSETRON HCL INJ 2MG/ML 2ML 2 MG/ML VIAL IV PRN (06:30)
[2019-04-24] MEDS ORDERED: HYDRALAZINE HCL 20 MG/ML VIAL IV PRN (06:30)
[2019-04-24 06:31] LABS: ALBUMIN 3.4 g/dL (3.5-5.0); ALBUMIN/GLOBULIN RATIO 1.2 (0.8-2.0); ANION GAP 11.5 mmol/L (8-16); CALCIUM 9.4 mg/dL (8.4-10.2); CREATININE, SERUM 1.37 mg/dL (0.72-1.25); POTASSIUM 3.5 mmol/L (3.5-5.1)
[2019-04-24] MEDS: ALBUTEROL/IPRATROPIUM 3 ML NEB NEB PRN ×2 (07:27→13:42)
[2019-04-24] MEDS: METOPROLOL TARTRATE 25 MG TAB PO SCH ×2 (08:57→22:00)
[2019-04-24] MEDS: ASPIRIN 81 MG CHEW TAB PO SCH (08:57)
[2019-04-24] MEDS: MYRBETRIQ 50MG PO SCH (08:57)
[2019-04-24] MEDS: LIOTHYRONINE SODIUM 5 MCG TAB PO SCH (08:57)
[2019-04-24] MEDS: LEVOTHYROXINE SODIUM 50 MCG TAB PO SCH (08:58)
[2019-04-24] MEDS: CLOPIDOGREL BISULFATE 75 MG TAB PO SCH (08:58)
[2019-04-24] MEDS: RIVAROXABAN 15 MG TABLET PO SCH (08:58)
[2019-04-24] MEDS ORDERED: BUMETANIDE 1 MG TAB PO SCH (09:00)
[2019-04-24] MEDS ORDERED: NON-FORMULARY MEDICATION (Mirabegron (Myrbetriq) 50 MG) PO SCH (09:00)
[2019-04-24] MEDS ORDERED: NON-FORMULARY MEDICATION (Bumetanide 2 MG) PO SCH (09:00)
[2019-04-24] MEDS ORDERED: POTASSIUM CHLORIDE 20 MEQ TAB CR PO ONE (13:55)
[2019-04-24 14:14] LABS: CREATINE KINASE 73 IU/L (30-200)
[2019-04-24] MEDS ORDERED: LEVOTHYROXINE SODIUM 50 MCG TAB PO SCH (15:00)
--- NOTE | 2019-04-24 17:39 | NUR ---
Nutrition Screen Note RD Recommendation for Physician: 1.Continue with 1800 ADA, Cardiac Diet Plan of Care: RD following, monitoring for tolerance and adequacy Nutrition reason for involvement: Diagnosis Primary Diagnose(s): CHF, COPD, Pedal edema PMH: Per pt chart and previous admissions, patient has a history of CAD, type 2 diabetes, hypertension, COPD, CKD 3, atrial fibrillation, hypothyroidism, gout, neuropathy, RLS, chronic back pain, venous stasis, CHF, OA, GERD, anxiety, glaucoma, ankylosing spondylitis, MJ, dermatitis, pneumonia, chronic cellulitis, urinary retention. Ht: 69 in Wt: 235lbs BMI: 34.6 kg/m2 IBW 160:lb RD Assessment: (04/24) Chart reviewed. Labs and meds reviewed. 73 y/o M with hx of CAD, type 2 diabetes, hypertension, COPD, CKD 3. Patient in room during visit, at bedside. Per patient and , has had previous diet education in past regarding diabetes and CHF. Patient and had questions about diagnosis, and sodium restriction. Noted good appetite and intake. Denies any N/V/D/C and difficulties with chewing/swallowing. Will continue to monitor as needed. Current Diet: ADA/Cardiac Diet Malnutrition Evaluation (04/24) The patient does not meet criteria for a specified degree of malnutrition at this time. Will re-evaluate at follow-up as appropriate. Diet Education Needs Assessment: Diet education not indicated, patient refused, reports has had previous dietary education in the past. Nutrition Care Level: Low Signed: Kailyn Cote, MS, RDN, LD
--- NOTE | 2019-04-24 17:59 | Consultation ---
DATE OF CONSULTATION: 04/24/2019 [facility] Consult REASON FOR CONSULTATION: Acute on chronic kidney disease, stage 3. HISTORY OF PRESENT ILLNESS: This is a 73-year-old male, who was admitted with worsening shortness of breath and worsening edema. PAST MEDICAL HISTORY: Include: 1. Chronic kidney disease, stage 3. 2. COPD. 3. Asthma. 4. Type 2 diabetes mellitus. 5. Cirrhosis. 6. Gout. 7. Ankylosing spondylitis. 8. Parkinson. 9. BPH. 10. Hypothyroidism. PAST SURGICAL HISTORY: 1. Neck fusion. 2. Prostate laser surgery. 3. Pain pump placed. 4. Cataract surgery. 5. Vein ablation. SOCIAL HISTORY: No tobacco. No alcohol. No drugs. FAMILY HISTORY: Noncontributory. ALLERGIES: NO KNOWN DRUG ALLERGIES. CURRENT MEDICATIONS: Include: 1. Alprazolam. 2. Latanoprost. 3. Sertraline. 4. Tylenol. 5. Metoprolol. 6. Asprin. 7. Liothyronine. 8. Tamsulosin. 9. Hydralazine. 10. Baclofen. 11. Rivaroxaban. 12. Levothyroxine. 13. Plavix. 14. Ropinirole. 15. Bumex. 16. Zofran. PHYSICAL EXAMINATION: GENERAL: Alert, following command. HEENT: Pupils are equal and reactive to light and accommodation. NECK: No JVD. No bruit. LUNGS: No rales. No rhonchi. No wheezes. HEART: Regular rate and rhythm. No S3. No S4. ABDOMEN: Nontender and nondistended. No hepatomegaly or splenomegaly. EXTREMITIES: +3 edema. NEUROLOGIC: Cranial nerves II through XII are grossly intact. Sensation intact. Motor intact. VITAL SIGNS: Blood pressure of 126/61. LABORATORY DATA: White count 6, hemoglobin 14, hematocrit 46. Sodium 142, potassium 3.5, chloride 97, creatinine 1.37. Albumin 3.4, BNP pending. ALT 13. ASSESSMENT/PLAN: 1. Congestive heart failure with severe edema. The patient is currently on Bumex. We will change to IV and we will have him on strict I's and O's, and fluid restriction. We will continue monitoring his labs. 2. Hypokalemia. The patient will be receiving potassium. 3. Gout and ankylosing spondylitis. Currently stable, but the patient had a slight up recently and was seen by Rheumatology. 4. Hemoglobin. Currently stable at 14.1. 5. Chronic obstructive pulmonary disease and asthma. Currently is stable. 6. Respiratory rate appears going in and currently the patient is feeling much better than yesterday. Sadi Jose MD MA/STEVE /[id number]
--- NOTE | 2019-04-24 19:09 | Consultation ---
DATE OF CONSULTATION: 04/24/2019 Cardiology consultation HISTORY OF PRESENT ILLNESS: This is a 73-year-old man with history of chronic diastolic heart failure, chronic kidney disease, atrial fibrillation, diabetes mellitus, hypertension, hyperlipidemia, lymphedema, and venous insufficiency, who presented to the Emergency Department with progressively worsening lower extremity swelling and shortness of breath, worse with exertion; symptoms were moderate intensity, no exertional angina. Upon arrival here, the patient was noted to be volume overloaded, received an increased dose of diuretics with Bumex 3 mg q.12 hours. REVIEW OF SYSTEMS: Twelve-point review of system was conducted, is negative otherwise as stated above in the HPI. PAST MEDICAL HISTORY: As stated in the HPI. PAST SURGICAL HISTORY: Percutaneous coronary intervention. PAST FAMILY HISTORY: No premature coronary artery disease or cardiac . SOCIAL HISTORY: No illicit drug, alcohol, or tobacco use. ALLERGIES: NO KNOWN DRUG ALLERGIES. MEDICATIONS: See med reconciliation form. PHYSICAL EXAMINATION: VITAL SIGNS: Temperature is 96.2, heart rate 76, respirations 17, blood pressure is 126/61, and ox saturation 97% on 4 L nasal cannula. GENERAL: He is an elderly man seated at bedside, in no apparent distress. CARDIOVASCULAR: Irregularly irregular. Normal rate. No murmurs. LUNGS: Diminished breath sounds at bases. ABDOMEN: Soft, nontender, nondistended. EXTREMITIES: Significant 3+ edema with weeping blisters. NEUROLOGIC: No focal deficits noted. CARDIOVASCULAR MEDICATIONS: Reviewed. LABORATORY DATA: Reviewed, creatinine is 1.37. RADIOGRAPHIC DATA: Chest x-ray shows mild central pulmonary vascular congestion. IMPRESSION: 1. Yqvbn-vs-lezxjsj diastolic heart failure. 2. Zuplb-iv-nfmmrjg kidney disease. 3. Lower extremity edema. 4. Atrial fibrillation. 5. Coronary artery disease, status post percutaneous coronary intervention. RECOMMENDATIONS: Continue increased doses of Bumex. Defer diuretics and volume management to Nephrology. Continue to monitor urinary outputs and daily labs. No evidence of ischemia given he is asymptomatic and negative troponins. Continue all current cardiovascular medications. Jimbo Elizalde DO BM/MODL /[id number]
[2019-04-24] MEDS: SERTRALINE HCL 50 MG TAB PO SCH (22:00)
[2019-04-24] MEDS: BUMETANIDE INJ 0.25MG/ML 4ML VIAL IV SCH (22:00)
[2019-04-24] MEDS: TAMSULOSIN HCL 0.4 MG CAP PO SCH (22:00)
[2019-04-24] MEDS: ROPINIROLE HCL 0.25 MG TAB PO SCH (22:00)
[2019-04-24] MEDS: ALLOPURINOL 300 MG TAB PO SCH (22:00)
[2019-04-24] MEDS: LATANOPROST(OPTH) 2.5 ML BTL OU SCH (22:00)
[2019-04-25] VITALS (7 sets, daily range): BP systolic 104–116; BP diastolic 55–67
[2019-04-25 05:20] LABS: BASOPHILS # (AUTO) 0.1 (0.0-0.1); BASOPHILS % 1.1 % (0.0-1.0); EOSINOPHILS # (AUTO) 0.2 (0.0-0.4); EOSINOPHILS % 4.2 % (0.0-6.0); HEMATOCRIT 46.7 % (38.2-49.6); HEMOGLOBIN 14.2 g/dL (14.0-18.0); LYMPHOCYTES # (AUTO) 1.1 (1.0-3.2); LYMPHOCYTES % 18.8 % (18.0-39.1); MEAN CORPUSCULAR HEMOGLOBIN 28.3 pg (28-32); MEAN CORPUSCULAR HGB CONC 30.4 g/dL (31-35); MONOCYTES # (AUTO) 0.7 (0.2-0.8); MONOCYTES % 12.1 % (4.4-11.3); NEUTROPHILS # (AUTO) 3.6 (2.1-6.9); NEUTROPHILS % 63.6 % (38.7-80.0); PLATELET COUNT 178 x10e3/uL (140-360); RED BLOOD COUNT 5.02 x10e6/uL (4.3-5.7); RED CELL DISTRIBUTION WIDTH 16.2 % (11.7-14.4)
[2019-04-25 05:41] LABS: ANION GAP 11.2 mmol/L (8-16); CALCIUM 9.4 mg/dL (8.4-10.2); CREATININE, SERUM 1.25 mg/dL (0.72-1.25); MAGNESIUM 2.2 MG/DL (1.3-2.1); POTASSIUM 4.2 mmol/L (3.5-5.1)
--- NOTE | 2019-04-25 07:00 | NUR ---
RCD PT AT BED PT IS ALERT AND ORIENTED PT RESTING ON BED NO SIGNS OF ANY DISTRESS NOTED IV PATENT BED LOW AND LOCKED CALL LIGHT IN REACH
[2019-04-25] MEDS: ALBUTEROL/IPRATROPIUM 3 ML NEB NEB PRN ×3 (07:31→20:00)
[2019-04-25] MEDS: MYRBETRIQ 50MG PO SCH (09:00)
[2019-04-25] MEDS: CLOPIDOGREL BISULFATE 75 MG TAB PO SCH (09:00)
[2019-04-25] MEDS: ASPIRIN 81 MG CHEW TAB PO SCH (09:00)
[2019-04-25] MEDS: LEVOTHYROXINE SODIUM 50 MCG TAB PO SCH (09:00)
[2019-04-25] MEDS: METOPROLOL TARTRATE 25 MG TAB PO SCH ×2 (09:00→20:13)
[2019-04-25] MEDS: RIVAROXABAN 15 MG TABLET PO SCH (09:00)
[2019-04-25] MEDS: LIOTHYRONINE SODIUM 5 MCG TAB PO SCH (09:00)
[2019-04-25] MEDS: BUMETANIDE INJ 0.25MG/ML 4ML VIAL IV SCH (09:00)
[2019-04-25] MEDS: BUMETANIDE 10 MG in SODIUM CHLORIDE 0.9% 100 ML 60 ML IV SCH ×2 (12:30→23:00)
--- NOTE | 2019-04-25 12:30 | NUR ---
PT ON BUMEX DRIP 1MG/HR
[2019-04-25] MEDS ORDERED: SODIUM CHLORIDE 0.9% 50ML 50 ML ONE (12:49)
--- NOTE | 2019-04-25 16:27 | Progress Note ---
DATE: 04/25/2019 Cardiology Progress Note SUBJECTIVE: The patient is feeling better. Erythema and leg swelling are improved. OBJECTIVE: VITAL SIGNS: Temperature is 96, heart rate is 81, respirations are 19, blood pressure is 112/64, and oxygen saturation 98% on 4 L nasal cannula. GENERAL: Well appearing, well built, no apparent distress. CARDIOVASCULAR: Irregular, normal rate. LUNGS: Diminished breath sounds at bases. ABDOMEN: Soft, nontender, nondistended. EXTREMITIES: Erythema with pustules and 3+ pitting edema. CARDIOVASCULAR MEDICATIONS: Reviewed. LABORATORY DATA: Reviewed. TELEMETRY: Monitoring revealed atrial fibrillation. IMPRESSION: 1. Acute on chronic diastolic heart failure. 2. Acute on chronic kidney disease. 3. Lower extremity edema. 4. Atrial fibrillation. 5. Coronary artery disease status post percutaneous coronary intervention. RECOMMENDATIONS: Agree with bumetanide. Continuous infusion for adequate diuresis. The patient's symptoms have improved. Continue to monitor daily urinary outputs and daily labs. Continue all the current cardiovascular medication. Jimbo Elizalde DO BM/MODL /[id number]
--- NOTE | 2019-04-25 18:40 | NUR ---
PT RESTING ON BED BED SIDE REPORT GIVEN TO ONCOMING NURSE
[2019-04-25] MEDS: SERTRALINE HCL 50 MG TAB PO SCH (20:13)
[2019-04-25] MEDS: ALLOPURINOL 300 MG TAB PO SCH (20:13)
[2019-04-25] MEDS: TAMSULOSIN HCL 0.4 MG CAP PO SCH (20:13)
[2019-04-25] MEDS: LATANOPROST(OPTH) 2.5 ML BTL OU SCH (20:13)
[2019-04-25] MEDS: ROPINIROLE HCL 0.25 MG TAB PO SCH (20:13)
[2019-04-26] MEDS ORDERED: MORPHINE SULFATE 2 MG/ML SYR 1ML IV PRN (05:00)
[2019-04-26] MEDS: MORPHINE SULFATE INJ 4 MG/ML INJ 1ML IV PRN ×2 (05:07→15:33)
[2019-04-26] MEDS ORDERED: MORPHINE SULFATE INJ 4 MG/ML INJ 1ML IV PRN (05:15)
[2019-04-26 05:22] VITALS: BP 95/53
[2019-04-26 05:53] LABS: BASOPHILS % 0.6 % (0.0-1.0); EOSINOPHILS # (AUTO) 0.2 (0.0-0.4); EOSINOPHILS % 4.4 % (0.0-6.0); HEMATOCRIT 43.9 % (38.2-49.6); LYMPHOCYTES # (AUTO) 0.9 (1.0-3.2); LYMPHOCYTES % 16.3 % (18.0-39.1); MEAN CORPUSCULAR HEMOGLOBIN 27.8 pg (28-32); MEAN CORPUSCULAR HGB CONC 30.3 g/dL (31-35); MEAN CORPUSCULAR VOLUME 91.8 fL (81-99); MONOCYTES # (AUTO) 0.7 (0.2-0.8); MONOCYTES % 13.7 % (4.4-11.3); NEUTROPHILS # (AUTO) 3.5 (2.1-6.9); NEUTROPHILS % 64.6 % (38.7-80.0); PLATELET COUNT 173 x10e3/uL (140-360); RED BLOOD COUNT 4.78 x10e6/uL (4.3-5.7); RED CELL DISTRIBUTION WIDTH 15.9 % (11.7-14.4)
[2019-04-26 06:05] LABS: HEMOGLOBIN 13.3 g/dL (14.0-18.0)
[2019-04-26 06:17] LABS: ANION GAP 10.3 mmol/L (8-16); CALCIUM 8.9 mg/dL (8.4-10.2); CREATININE, SERUM 1.23 mg/dL (0.72-1.25); POTASSIUM 3.3 mmol/L (3.5-5.1)
[2019-04-26] MEDS ORDERED: POTASSIUM CHLORIDE 20 MEQ TAB CR PO ONE (07:00)
[2019-04-26] MEDS: ALBUTEROL/IPRATROPIUM 3 ML NEB NEB PRN ×3 (07:14→19:50)
[2019-04-26 07:58] VITALS: BP 90/52
[2019-04-26] MEDS: MYRBETRIQ 50MG PO SCH (08:54)
[2019-04-26] MEDS: METOPROLOL TARTRATE 25 MG TAB PO SCH ×2 (08:54→21:20)
[2019-04-26] MEDS: ASPIRIN 81 MG CHEW TAB PO SCH (08:54)
[2019-04-26] MEDS: CLOPIDOGREL BISULFATE 75 MG TAB PO SCH (08:55)
[2019-04-26] MEDS: RIVAROXABAN 15 MG TABLET PO SCH (08:55)
[2019-04-26] MEDS: LIOTHYRONINE SODIUM 5 MCG TAB PO SCH (08:55)
[2019-04-26] MEDS: LEVOTHYROXINE SODIUM 50 MCG TAB PO SCH (08:55)
[2019-04-26 08:56] VITALS: BP 90/52
[2019-04-26] MEDS: BUMETANIDE 10 MG in SODIUM CHLORIDE 0.9% 100 ML 60 ML IV SCH ×2 (10:50→19:23)
[2019-04-26 11:57] VITALS: BP 97/57
--- NOTE | 2019-04-26 13:58 | Progress Note ---
DATE: 04/26/2019 Cardiology Progress Note SUBJECTIVE: The patient is feeling better on Bumex drip. Legs have decreased in size. OBJECTIVE: VITAL SIGNS: Temperature is 97.7, heart rate is 88, respirations are 18, blood pressure is 92/52, ox saturation 100% on 4 L nasal cannula. GENERAL: He is well appearing, seated at bedside, no apparent distress. CARDIOVASCULAR: Regular rate and rhythm. LUNGS: Clear to auscultation. ABDOMEN: Soft, nontender, nondistended. EXTREMITIES: 2+ edema. CARDIOVASCULAR MEDICATIONS: Reviewed. LABORATORY DATA: Reviewed. Hemoglobin 13, creatinine 1.2, potassium 3.3. TELEMETRY: Monitoring revealed atrial fibrillation. IMPRESSION: 1. Acute on chronic diastolic heart failure. 2. Acute on chronic kidney disease, improved. 3. Lower extremity edema. 4. Atrial fibrillation. 5. Coronary artery disease, status post percutaneous coronary intervention. RECOMMENDATIONS: Continue Bumex drip for 24 more hours. Continue to monitor his urinary outputs and daily labs. Continue all the current cardiovascular medications including Xarelto and Plavix. Continue close telemetry monitoring. Jimbo Elizalde DO BM/MODL /[id number]
--- NOTE | 2019-04-26 14:28 | NUR ---
CM SPOKE TO PATIENT AT BEDSIDE REGARDING DISCHARGE PLAN AND ORDERS FOR HOME HEALTH AND PULMONARY REHAB OUTPATIENT. PATIENT AWARE OF ORDERS AND GIVEN CHOICES. PATIENT CHOSE TO RETURN TO [facility] AND GO TO THE [facility] OUTPATIENT PULMON[facility]HAB CENTER. CLINICAL SENT AND PENDING ACCEPTANCE AND APPT TIME FOR PULMONARY REHAB. PATIENT ALREADY ACCEPTED TO HOME HEALTH AND WILL RESUME SERVICES UPON DISCHARGE. Provider Name: [facility] [employer] Address: [address] [place] [address] FAX: [phone] Pulmonary Rehabilitation [address] [address] Addendum: 04/26/19 at 1548 by Demi Pike CM ROSA WITH SLEEP [facility] CALLED AND CONFIRMED THAT SHE RECEIVED INFORMATION AND GIVING IT TO PULMONARY REHAB TOMORROW WHEN SHE RETURNS.
[2019-04-26] MEDS ORDERED: ONDANSETRON HCL 4 MG ORAL DISINTEGRATING TAB PO PRN (15:30)
[2019-04-26 15:38] VITALS: BP 101/59
--- NOTE | 2019-04-26 16:43 | NUR ---
Consultation regarding blisters to bilateral lower extremities. Patient has a few blisters on both extremities with hemosiderin effect from calf down. Patient states He has CHF and COPD along with edema. He is under the care of Dr. Mcguire. He verbalizes that treatment is difficult due to the competing diagnoses. He states that the blistering has decreased as the edema has decreased. He has utilized compression wraps, Compression stockings, and currently has a compression pump at home. He states that he is unable to get compression wraps, or compression sleeve for pump on by himself. The current compression pump is hurting him and the sleeves only go to the knee, and then the fluid is left in his thigh. Recommend continued current treatment for fluid management. Elevation of legs (avoid hanging). Walking several times a day, and toe heel pumps to alleviate some of the lower extremity edema. Patient to call the compression pump company to report he is unable to tolerate. Modifications can be made by the company upon return home. Currently there is no ulcerations noted, just 2-3 closed blisters on each leg.
[2019-04-26] MEDS ORDERED: POTASSIUM CHLORIDE 20 MEQ TAB CR PO NR (18:45)
--- NOTE | 2019-04-26 18:57 | NUR ---
Received report from previous nurse. Patient in sitting at the corner of the bed. Call light within reach. Patient mentioned he does not want 0000 vital signs and only come in after 0300.
[2019-04-26 20:00] VITALS: BP 119/66
[2019-04-26] MEDS: LATANOPROST(OPTH) 2.5 ML BTL OU SCH (21:19)
[2019-04-26] MEDS: TAMSULOSIN HCL 0.4 MG CAP PO SCH (21:19)
[2019-04-26] MEDS: ALLOPURINOL 300 MG TAB PO SCH (21:20)
[2019-04-26] MEDS: SERTRALINE HCL 50 MG TAB PO SCH (21:20)
[2019-04-26] MEDS: LIDOCAINE 5% PATCH TP SCH (21:20)
[2019-04-26] MEDS: ROPINIROLE HCL 0.25 MG TAB PO SCH (21:20)
[2019-04-27 04:00] VITALS: BP 99/56
[2019-04-27 04:05] LABS: BASOPHILS % 0.7 % (0.0-1.0); EOSINOPHILS # (AUTO) 0.3 (0.0-0.4); EOSINOPHILS % 4.3 % (0.0-6.0); HEMATOCRIT 43.3 % (38.2-49.6); HEMOGLOBIN 13.8 g/dL (14.0-18.0); LYMPHOCYTES % 16.2 % (18.0-39.1); MEAN CORPUSCULAR HEMOGLOBIN 28.7 pg (28-32); MEAN CORPUSCULAR HGB CONC 31.9 g/dL (31-35); MONOCYTES # (AUTO) 0.8 (0.2-0.8); NEUTROPHILS # (AUTO) 3.9 (2.1-6.9); NEUTROPHILS % 65.5 % (38.7-80.0); PLATELET COUNT 195 x10e3/uL (140-360); RED BLOOD COUNT 4.81 x10e6/uL (4.3-5.7); RED CELL DISTRIBUTION WIDTH 16.1 % (11.7-14.4)
[2019-04-27 04:15] LABS: ANION GAP 12.4 mmol/L (8-16); CREATININE, SERUM 1.28 mg/dL (0.72-1.25); POTASSIUM 3.4 mmol/L (3.5-5.1)
[2019-04-27] MEDS: BUMETANIDE 10 MG in SODIUM CHLORIDE 0.9% 100 ML 60 ML IV SCH ×2 (05:30→15:00)
[2019-04-27] MEDS ORDERED: POTASSIUM CHLORIDE 10MEQ EA PO ONE ×2 (06:00→11:15)
[2019-04-27] MEDS: ALBUTEROL/IPRATROPIUM 3 ML NEB NEB PRN ×3 (07:10→19:15)
--- NOTE | 2019-04-27 07:14 | NUR ---
Gave report to oncoming nurse. Call light within reach. Patient in bed.
[2019-04-27 07:57] VITALS: BP 131/62
[2019-04-27] MEDS: ASPIRIN 81 MG CHEW TAB PO SCH (08:19)
[2019-04-27] MEDS: CLOPIDOGREL BISULFATE 75 MG TAB PO SCH (08:19)
[2019-04-27] MEDS: MORPHINE SULFATE INJ 4 MG/ML INJ 1ML IV PRN ×2 (08:19→17:18)
[2019-04-27] MEDS: LIOTHYRONINE SODIUM 5 MCG TAB PO SCH (08:19)
[2019-04-27] MEDS: RIVAROXABAN 15 MG TABLET PO SCH (08:19)
[2019-04-27] MEDS: LEVOTHYROXINE SODIUM 50 MCG TAB PO SCH (08:19)
[2019-04-27 08:20] VITALS: BP 131/62
[2019-04-27] MEDS: METOPROLOL TARTRATE 25 MG TAB PO SCH ×2 (08:20→20:35)
[2019-04-27] MEDS: MYRBETRIQ 50MG PO SCH (09:00)
--- NOTE | 2019-04-27 11:08 | Progress Note ---
DATE: 04/27/2019 Cardiology Progress Note SUBJECTIVE: Mr. Sharma feels less short of breath. His swelling is improved. Right arm swelling persists. PHYSICAL EXAMINATION: VITAL SIGNS: Temperature 96, heart rate 93, blood pressure 131/62, O2 sats 96%. CARDIOVASCULAR: Irregular rhythm. Systolic murmur. S3 gallop. LUNGS: Decreased breath sounds. EXTREMITIES: Right arm is swollen. TELEMETRY: Reviewed, shows atrial fibrillation. LABORATORY DATA: Labs are reviewed. Hemoglobin is 13.2, serum creatinine 1.3. Potassium 3.4, CO2 35. MEDICATIONS: Reviewed. ASSESSMENT: 1. Acute on chronic diastolic heart failure. 2. Chronic kidney disease. 3. Atrial fibrillation. 4. Coronary artery disease. RECOMMENDATIONS: Intravenous furosemide can be discontinued and the patient has had considerable weight loss in excess of 6 pounds from the time of admission. At this point, we will transition him to twice a day furosemide. Discharge in next 24 to 48 hours. MD LIYAH Lopez/STEVE /[id number]
[2019-04-27 11:52] VITALS: BP 93/65
[2019-04-27 15:30] VITALS: BP 106/63
--- NOTE | 2019-04-27 18:57 | NUR ---
Received report from previous nurse. call light within reach. patient in bed.
--- NOTE | 2019-04-27 19:05 | NUR ---
Report given to oncoming nurse of patient's status. Resting in bed. No s/s of acute distress noted.
[2019-04-27 20:00] VITALS: BP 138/71
[2019-04-27] MEDS: LATANOPROST(OPTH) 2.5 ML BTL OU SCH (21:33)
[2019-04-27] MEDS: TAMSULOSIN HCL 0.4 MG CAP PO SCH (21:33)
[2019-04-27] MEDS: ROPINIROLE HCL 0.25 MG TAB PO SCH (21:33)
[2019-04-27] MEDS: LIDOCAINE 5% PATCH TP SCH (21:33)
[2019-04-27] MEDS: SERTRALINE HCL 50 MG TAB PO SCH (21:33)
[2019-04-27] MEDS: ALLOPURINOL 300 MG TAB PO SCH (21:33)
[2019-04-28] VITALS (8 sets, daily range): BP systolic 96–116; BP diastolic 55–68
[2019-04-28] MEDS: BUMETANIDE 10 MG in SODIUM CHLORIDE 0.9% 100 ML 60 ML IV SCH ×3 (02:54→20:28)
[2019-04-28 03:37] LABS: BASOPHILS % 0.5 % (0.0-1.0); EOSINOPHILS # (AUTO) 0.1 (0.0-0.4); EOSINOPHILS % 1.9 % (0.0-6.0); HEMATOCRIT 45.3 % (38.2-49.6); LYMPHOCYTES # (AUTO) 1.1 (1.0-3.2); LYMPHOCYTES % 14.9 % (18.0-39.1); MEAN CORPUSCULAR HEMOGLOBIN 28.1 pg (28-32); MEAN CORPUSCULAR HGB CONC 30.9 g/dL (31-35); MONOCYTES # (AUTO) 0.9 (0.2-0.8); MONOCYTES % 11.6 % (4.4-11.3); NEUTROPHILS # (AUTO) 5.3 (2.1-6.9); NEUTROPHILS % 70.7 % (38.7-80.0); PLATELET COUNT 187 x10e3/uL (140-360); RED BLOOD COUNT 4.98 x10e6/uL (4.3-5.7)
[2019-04-28 03:55] LABS: ANION GAP 15.6 mmol/L (8-16); CALCIUM 9.6 mg/dL (8.4-10.2); CREATININE, SERUM 1.69 mg/dL (0.72-1.25); MAGNESIUM 2.1 MG/DL (1.3-2.1); POTASSIUM 3.6 mmol/L (3.5-5.1)
[2019-04-28] MEDS: ALBUTEROL/IPRATROPIUM 3 ML NEB NEB PRN ×3 (06:45→19:45)
--- NOTE | 2019-04-28 07:00 | NUR ---
BEDSIDE SHIFT REPORT RECEIVED FROM THE CORPORATE QUALITY ASSURANCE MANAGER RN. PT DENIES NEEDS AT THIS TIME.
--- NOTE | 2019-04-28 07:21 | NUR ---
Gave report to oncoming nurse. Patient in bed. Call light within reach.
[2019-04-28] MEDS: MYRBETRIQ 50MG PO SCH (08:33)
[2019-04-28] MEDS: CLOPIDOGREL BISULFATE 75 MG TAB PO SCH (08:33)
[2019-04-28] MEDS: METOPROLOL TARTRATE 25 MG TAB PO SCH ×2 (08:34→20:29)
[2019-04-28] MEDS: LIOTHYRONINE SODIUM 5 MCG TAB PO SCH (08:34)
[2019-04-28] MEDS: ASPIRIN 81 MG CHEW TAB PO SCH (08:34)
[2019-04-28] MEDS: LEVOTHYROXINE SODIUM 50 MCG TAB PO SCH (08:35)
[2019-04-28] MEDS: RIVAROXABAN 15 MG TABLET PO SCH (08:51)
[2019-04-28] MEDS: COLCHICINE 0.6 MG TAB PO SCH ×3 (09:25→20:28)
[2019-04-28] MEDS: MORPHINE SULFATE INJ 4 MG/ML INJ 1ML IV PRN (11:20)
--- NOTE | 2019-04-28 18:30 | NUR ---
RFA 20 G IV REMOVED. NO BLEEDING NOTED. TIP INTACT. DRESSING APPLIED. PT DENIED FURTHER NEEDS.
--- NOTE | 2019-04-28 19:00 | NUR ---
BEDSIDE SHIFT REPORT GIVEN TO THE AMMUNITION STOREKEEPER RN. PT DENIED FURTHER NEEDS.
[2019-04-28] MEDS: LATANOPROST(OPTH) 2.5 ML BTL OU SCH (20:28)
[2019-04-28] MEDS: TAMSULOSIN HCL 0.4 MG CAP PO SCH (20:28)
[2019-04-28] MEDS: SERTRALINE HCL 50 MG TAB PO SCH (20:29)
[2019-04-28] MEDS: ALLOPURINOL 300 MG TAB PO SCH (20:29)
[2019-04-28] MEDS: ROPINIROLE HCL 0.25 MG TAB PO SCH (20:29)
[2019-04-28] MEDS: LIDOCAINE 5% PATCH TP SCH (20:29)
[2019-04-29] MEDS: ALBUTEROL/IPRATROPIUM 3 ML NEB NEB PRN (04:40)
[2019-04-29 05:18] VITALS: BP 107/66
[2019-04-29 05:31] LABS: BASOPHILS % 0.4 % (0.0-1.0); EOSINOPHILS # (AUTO) 0.1 (0.0-0.4); EOSINOPHILS % 1.6 % (0.0-6.0); HEMATOCRIT 44.4 % (38.2-49.6); HEMOGLOBIN 13.7 g/dL (14.0-18.0); LYMPHOCYTES # (AUTO) 1.2 (1.0-3.2); LYMPHOCYTES % 17.5 % (18.0-39.1); MEAN CORPUSCULAR HGB CONC 30.9 g/dL (31-35); MEAN CORPUSCULAR VOLUME 90.6 fL (81-99); MONOCYTES # (AUTO) 0.8 (0.2-0.8); MONOCYTES % 11.7 % (4.4-11.3); NEUTROPHILS # (AUTO) 4.8 (2.1-6.9); NEUTROPHILS % 68.5 % (38.7-80.0); PLATELET COUNT 196 x10e3/uL (140-360); RED CELL DISTRIBUTION WIDTH 15.9 % (11.7-14.4)
[2019-04-29 05:47] LABS: ANION GAP 13.2 mmol/L (8-16); CALCIUM 9.4 mg/dL (8.4-10.2); CREATININE, SERUM 1.48 mg/dL (0.72-1.25); MAGNESIUM 2.2 MG/DL (1.3-2.1); POTASSIUM 3.2 mmol/L (3.5-5.1)
[2019-04-29] MEDS: BUMETANIDE 10 MG in SODIUM CHLORIDE 0.9% 100 ML 60 ML IV SCH ×2 (06:27→16:30)
[2019-04-29 08:13] VITALS: BP 117/63
[2019-04-29] MEDS: ASPIRIN 81 MG CHEW TAB PO SCH (08:20)
[2019-04-29] MEDS: COLCHICINE 0.6 MG TAB PO SCH (08:20)
[2019-04-29] MEDS: LIOTHYRONINE SODIUM 5 MCG TAB PO SCH (08:20)
[2019-04-29] MEDS: MYRBETRIQ 50MG PO SCH (08:21)
[2019-04-29] MEDS: METOPROLOL TARTRATE 25 MG TAB PO SCH (08:21)
[2019-04-29] MEDS: RIVAROXABAN 15 MG TABLET PO SCH (08:21)
[2019-04-29] MEDS: CLOPIDOGREL BISULFATE 75 MG TAB PO SCH (08:21)
[2019-04-29] MEDS: LEVOTHYROXINE SODIUM 50 MCG TAB PO SCH (08:21)
[2019-04-29] MEDS ORDERED: POTASSIUM CHLORIDE 20 MEQ TAB CR PO ONE ×2 (09:00→20:30)
--- NOTE | 2019-04-29 12:00 | NUR ---
SHIFT REPORT RECEIVED FROM THE RN. PT OFF UNIT FOR PROCEDURE.
[2019-04-29 13:00] VITALS: BP 137/67
[2019-04-29 13:24] VITALS: BP 137/67
[2019-04-29] MEDS ORDERED: METOLAZONE 5 MG TAB PO ONE (13:50)
[2019-04-29 16:44] VITALS: BP 122/69
--- NOTE | 2019-04-29 17:09 | Progress Note ---
DATE: 04/29/2019 Cardiology Progress Note SUBJECTIVE: The patient complains of right hand pain and also swelling. He is status post an MRI this afternoon. He denies any chest pain, however, endorses some shortness of breath and bilateral lower extremity edema. OBJECTIVE: VITAL SIGNS: Temperature 96.9, pulse 87, respiratory rate 22, blood pressure 137/67, oxygen saturation 95% on 4 L nasal cannula. GENERAL: Alert and oriented x3, resting comfortably on the side of the bed, does not appear to be in any acute distress. NECK: Supple. No JVD noted. CARDIOVASCULAR: Irregular rate and rhythm. Systolic murmur present. S3 gallop noted. LUNGS: Diminished breath sounds throughout. No wheezing. No rhonchi or crackles. EXTREMITIES: Right upper extremity is swollen, nonpitting edema, reddened and warm to the touch. Bilateral lower extremities, edematous 3+ nonpitting. CARDIOVASCULAR MEDICATIONS: Metoprolol tartrate 25 mg p.o. q.12 hours, Xarelto 15 mg p.o. daily, Plavix 75 mg p.o. daily, and aspirin 81 p.o. daily. LABORATORY DATA: WBC 6.99, hemoglobin 13.7, hematocrit 44.4, platelets 196. Sodium 138, potassium 3.2, BUN 32, creatinine 1.48, glucose 138. BNP 303. TELEMETRY: Rate controlled atrial fibrillation. IMPRESSION: 1. Acute on chronic diastolic heart failure. 2. Chronic kidney disease. 3. Permanent atrial fibrillation. 4. Coronary artery disease. 5. Right upper extremity swelling and possible infection. RECOMMENDATION: Infectious Disease consulted to evaluate right hand. MRI was completed this afternoon. Continue the above-listed cardiac medications. Continue volume management per aircraft shipping checker. We will continue to follow this patient. Dictated by Pinky Golden NP MD ASHLEY Lopez/STEVE /[id number]
[2019-04-29] MEDS: CLINDAMYCIN HCL 150 MG CAP PO SCH (17:49)
--- NOTE | 2019-04-29 19:00 | NUR ---
BEDSIDE SHIFT REPORT GIVEN TO THE RESTAURANT SERVICE MANAGER RN. PT DENIED FURTHER NEEDS.
[2019-04-29 20:45] VITALS: BP 102/65
[2019-04-29] MEDS: ROPINIROLE HCL 0.25 MG TAB PO SCH (21:00)
[2019-04-29] MEDS: SERTRALINE HCL 50 MG TAB PO SCH (21:00)
[2019-04-29] MEDS: TAMSULOSIN HCL 0.4 MG CAP PO SCH (21:00)
[2019-04-29] MEDS: LIDOCAINE 5% PATCH TP SCH (21:00)
[2019-04-29] MEDS: LATANOPROST(OPTH) 2.5 ML BTL OU SCH (21:00)
[2019-04-29] MEDS: ALLOPURINOL 300 MG TAB PO SCH (21:00)
[2019-04-30] VITALS (7 sets, daily range): BP systolic 95–138; BP diastolic 60–84
[2019-04-30] MEDS: BUMETANIDE 10 MG in SODIUM CHLORIDE 0.9% 100 ML 60 ML IV SCH ×3 (02:30→22:30)
[2019-04-30 03:36] LABS: BASOPHILS % 0.7 % (0.0-1.0); EOSINOPHILS # (AUTO) 0.2 (0.0-0.4); EOSINOPHILS % 4.1 % (0.0-6.0); HEMATOCRIT 44.9 % (38.2-49.6); HEMOGLOBIN 14.1 g/dL (14.0-18.0); LYMPHOCYTES # (AUTO) 1.1 (1.0-3.2); LYMPHOCYTES % 18.7 % (18.0-39.1); MEAN CORPUSCULAR HEMOGLOBIN 28.4 pg (28-32); MEAN CORPUSCULAR HGB CONC 31.4 g/dL (31-35); MEAN CORPUSCULAR VOLUME 90.3 fL (81-99); MONOCYTES # (AUTO) 0.8 (0.2-0.8); MONOCYTES % 13.4 % (4.4-11.3); NEUTROPHILS # (AUTO) 3.6 (2.1-6.9); NEUTROPHILS % 62.7 % (38.7-80.0); PLATELET COUNT 194 x10e3/uL (140-360); RED BLOOD COUNT 4.97 x10e6/uL (4.3-5.7); RED CELL DISTRIBUTION WIDTH 15.8 % (11.7-14.4)
[2019-04-30] MEDS: CLINDAMYCIN HCL 150 MG CAP PO SCH ×3 (06:00→13:08)
[2019-04-30 06:35] LABS: ANION GAP 17.2 mmol/L (8-16); CALCIUM 9.9 mg/dL (8.4-10.2); CREATININE, SERUM 1.6 mg/dL (0.72-1.25); POTASSIUM 3.2 mmol/L (3.5-5.1)
--- NOTE | 2019-04-30 07:00 | NUR ---
BEDSIDE SHIFT REPORT RECEIVED FROM THE LIGHT INDUSTRIAL RN. PT DENIES NEEDS AT THIS TIME.
--- NOTE | 2019-04-30 07:01 | NUR ---
PER THE COMPUTER SYSTEMS SUPPORT SPECIALIST RN, ALL MEDICATIONS ADMINISTERED DURING THE COMPUTER SYSTEMS SUPPORT SPECIALIST BUT UNABLE TO DOCUMENT DUE TO [employer] LOGIN ISSUES. CONFIRMED WITH PHARMACY AND PER THE PHARMACIST ALL MEDICATIONS DURING THE SHIFT IS DOCUMENTING BY THIS NURSE.
[2019-04-30] MEDS: MYRBETRIQ 50MG PO SCH (08:27)
[2019-04-30] MEDS: ASPIRIN 81 MG CHEW TAB PO SCH (08:27)
[2019-04-30] MEDS: COLCHICINE 0.6 MG TAB PO SCH (08:28)
[2019-04-30] MEDS: CLOPIDOGREL BISULFATE 75 MG TAB PO SCH (08:28)
[2019-04-30] MEDS: LIOTHYRONINE SODIUM 5 MCG TAB PO SCH (08:28)
[2019-04-30] MEDS: LEVOTHYROXINE SODIUM 50 MCG TAB PO SCH (08:29)
[2019-04-30] MEDS: RIVAROXABAN 15 MG TABLET PO SCH (08:29)
[2019-04-30] MEDS: METOPROLOL TARTRATE 25 MG TAB PO SCH ×2 (08:36→22:00)
--- NOTE | 2019-04-30 08:50 | Diagnostic Imaging Report ---
Right hand MRI without contrast. History: Swelling. Redness. Spider bite. Middle finger pain. Comparison: None Technique: Multiplanar multisequence MRI of the hand without contrast Findings: No acute fracture, subluxation or avascular necrosis. Scattered degenerative change. Questionable small osseous erosion at the distal thumb side of the third metacarpal best seen on series 6 image 18. This could be due to an early inflammatory arthropathy in the appropriate clinical context. Artifact over the proximal index finger obscures fine detail of the region. Marked dorsal soft tissue edema about the hand could be due to cellulitis. No focal collection/abscess is seen. The visualized muscles are normal in size, signal intensity and morphology. No ligamentous or tendon tear is seen. The visualized neurovascular bundles are intact. Impression: Marked dorsal soft tissue edema about the hand could be due to cellulitis. No focal collection/abscess is seen. No underlying cortical destruction or focal bone marrow edema is seen to suggest osteomyelitis. Signed by: Dr. Anton Hammer M.D. on 04/30/2019 8:47 AM
[2019-04-30] MEDS: POTASSIUM CHLORIDE 20 MEQ TAB CR PO SCH (10:47)
[2019-04-30] MEDS: METOLAZONE 5 MG TAB PO SCH (10:47)
[2019-04-30] MEDS ORDERED: POTASSIUM CHLORIDE 20 MEQ TAB CR PO ONE (17:00)
[2019-04-30] MEDS: MEROPENEM 500MG/ NS 50ML 50 ML IV SCH (17:01)
[2019-04-30] MEDS: METHYLPREDNISOLONE SOD SUCC 40 MG/ML VIAL 1ML IV SCH (17:01)
[2019-04-30] MEDS ORDERED: SODIUM CHLORIDE 0.9% 50ML 50 ML ONE (17:04)
--- NOTE | 2019-04-30 17:23 | NUR ---
Nutrition Follow-up Note RD Recommendation for Physician: - Continue with 1800 ADA, Cardiac Diet Plan of Care: Patient has been screened and assessed for nutrition risk. At this time, the patient does not pose any nutrition risk. No further nutrition intervention is warranted at this time. Will re-evaluate if consulted by medical staff. Nutrition reason for involvement: Follow up Primary Diagnose(s): CHF, COPD, Pedal edema PMH: Per pt chart and previous admissions, patient has a history of CAD, type 2 diabetes, hypertension, COPD, CKD 3, atrial fibrillation, hypothyroidism, gout, neuropathy, RLS, chronic back pain, venous stasis, CHF, OA, GERD, anxiety, glaucoma, ankylosing spondylitis, MJ, dermatitis, pneumonia, chronic cellulitis, urinary retention. Ht: 69 in Wt: 235lbs; 216lb fluids loss BMI: 34.6 kg/m2 IBW 160:lb RD Assessment: (04/30) Visited pt in the room. Pt has lost ~15lbs of fluids since admission. Pt reports good appetite with 100% observed lunch intake. No complains of nausea or vomiting. Normal BM. Current diet is adequate and appropriate. (04/24) Chart reviewed. Labs and meds reviewed. 73 y/o M with hx of CAD, type 2 diabetes, hypertension, COPD, CKD 3. Patient in room during visit, at bedside. Per patient and , has had previous diet education in past regarding diabetes and CHF. Patient and had questions about diagnosis, and sodium restriction. Noted good appetite and intake. Denies any N/V/D/C and difficulties with chewing/swallowing. Will continue to monitor as needed. Current Diet: ADA/Cardiac Diet Malnutrition Evaluation (04/24) The patient does not meet criteria for a specified degree of malnutrition at this time. Will re-evaluate at follow-up as appropriate. Diet Education Needs Assessment: Diet education not indicated, patient refused, reports have had previous dietary education in the past. Nutrition Care Level: Low Signed: Kalli Winchester, MS, RD, LD
[2019-04-30] MEDS ORDERED: SODIUM CHLORIDE 0.9% 250ML 250 ML ONE (17:39)
[2019-04-30] MEDS ORDERED: POTASSIUM CHLORIDE 20 MEQ TAB CR PO SCH (18:30)
[2019-04-30] MEDS: LINEZOLID 600 MG/D5W 300ML 300 ML IV SCH (18:46)
--- NOTE | 2019-04-30 19:00 | NUR ---
BEDSIDE SHIFT REPORT GIVEN TO THE POLICE MANAGER RN. PT DENIED FURTHER NEEDS.
--- NOTE | 2019-04-30 19:21 | NUR ---
Patient received lying in bed. AAO x 3. Patient had no complaints of pain. Respirations even and non-labored on 4L NC. . Fall precautions in place. Patient instructed to call for assistance when needed. Call light within reach.
--- NOTE | 2019-04-30 19:44 | Consultation ---
DATE OF CONSULTATION: 04/30/2019 REASON FOR CONSULTATION: Cellulitis of the hand. HISTORY OF PRESENT ILLNESS: Thank you so much for seeing the patient. The patient is well known to me from before. He is a 73-year-old white male with history of diastolic congestive heart failure, chronic kidney disease, atrial fibrillation, diabetes mellitus, hypertension, hyperlipidemia, lymphedema, venous stasis dermatitis, cellulitis of lower extremities before, gout. The patient comes in with shortness of breath. The patient was admitted. He was admitted on 04/23. The patient apparently started to have redness and swelling of his right hand. No specific trauma. The patient has been on antibiotic. Infectious Disease was asked to see the patient. LABORATORY DATA: White count 5.4, hemoglobin 13.3, hematocrit 43, his platelet 173. Sodium 139, potassium 4.3, creatinine 1.6. MEDICATIONS: He was on: 1. Clindamycin. 2. Zaroxolyn. 3. Synthroid. 4. Colchicine. 5. Aspirin. 6. Morphine. 7. Xanax. 8. Zoloft. 9. Allopurinol. PAST MEDICAL HISTORY: As above. PAST SURGICAL HISTORY: As above. ALLERGIES: NKA. SOCIAL HISTORY: There is no smoking, drug abuse, or alcohol abuse. FAMILY HISTORY: Otherwise, hypertension. REVIEW OF SYSTEMS: HEENT: There is no headache, visual changes, hearing changes. GI: There is no nausea, no vomiting, no diarrhea. : Negative. PULMONARY: The patient does have shortness of breath. EXTREMITIES: There is pain in the hand. (He is telling me that his gout usually affect his ankle. He never had this in the hand before). There is erythema and edema on the right hand. Otherwise, joints seem to be within normal limit. Review of systems otherwise as above. No other joint problems. PHYSICAL EXAMINATION: GENERAL: Alert and oriented. Does not seem to be in acute distress. VITAL SIGNS: Stable. Afebrile. HEENT: Normocephalic. NECK: Supple. CHEST: Clear bilateral. HEART: S1, S2. No S3, S4, or murmur. ABDOMEN: Soft. Bowel sounds present. No tenderness. EXTREMITIES: Except for what he had, he denies any. IMPRESSION AND PLAN: I think the patient have a flare of his gout, we will try steroid. Obtain x-ray of the hand. We will see how he is going to do on Solu-Medrol. We will reassess. Keep the arm elevated. We will get a blood culture. We will reassess in the morning. We will order MRI. MD CATHERINE Melendez/STEVE /[id number]
[2019-04-30] MEDS ORDERED: MEROPENEM 500MG 500 MG in SODIUM CHLORIDE 0.9% 50ML 50 ML IV SCH (21:00)
[2019-04-30] MEDS: ALLOPURINOL 300 MG TAB PO SCH (22:00)
[2019-04-30] MEDS: TAMSULOSIN HCL 0.4 MG CAP PO SCH (22:00)
[2019-04-30] MEDS: ROPINIROLE HCL 0.25 MG TAB PO SCH (22:00)
[2019-04-30] MEDS: LATANOPROST(OPTH) 2.5 ML BTL OU SCH (22:00)
[2019-04-30] MEDS: LIDOCAINE 5% PATCH TP SCH (22:00)
[2019-04-30] MEDS: SERTRALINE HCL 50 MG TAB PO SCH (22:00)
[2019-05-01] VITALS (7 sets, daily range): BP systolic 98–141; BP diastolic 54–77
[2019-05-01 05:03] LABS: EOSINOPHILS # (AUTO) 0.1 (0.0-0.4); HEMATOCRIT 47.1 % (38.2-49.6); LYMPHOCYTES # (AUTO) 0.7 (1.0-3.2); LYMPHOCYTES % 11.3 % (18.0-39.1); MEAN CORPUSCULAR HEMOGLOBIN 28.2 pg (28-32); MEAN CORPUSCULAR HGB CONC 31.8 g/dL (31-35); MEAN CORPUSCULAR VOLUME 88.7 fL (81-99); MONOCYTES # (AUTO) 0.2 (0.2-0.8); NEUTROPHILS % 83.4 % (38.7-80.0); PLATELET COUNT 246 x10e3/uL (140-360); RED BLOOD COUNT 5.31 x10e6/uL (4.3-5.7); RED CELL DISTRIBUTION WIDTH 15.2 % (11.7-14.4)
[2019-05-01 05:25] LABS: ANION GAP 17.1 mmol/L (8-16); CALCIUM 9.8 mg/dL (8.4-10.2); CREATININE, SERUM 1.88 mg/dL (0.72-1.25); MAGNESIUM 2.4 MG/DL (1.3-2.1); POTASSIUM 4.1 mmol/L (3.5-5.1)
[2019-05-01] MEDS: MEROPENEM 500MG/ NS 50ML 50 ML IV SCH ×2 (05:27→16:57)
[2019-05-01] MEDS: METHYLPREDNISOLONE SOD SUCC 40 MG/ML VIAL 1ML IV SCH ×2 (05:33→16:57)
[2019-05-01] MEDS: LINEZOLID 600 MG/D5W 300ML 300 ML IV SCH ×2 (06:20→18:03)
[2019-05-01] MEDS: ALBUTEROL/IPRATROPIUM 3 ML NEB NEB PRN (07:00)
--- NOTE | 2019-05-01 07:08 | NUR ---
Walking rounds done. Shift report given to oncoming nurse regarding patient's status.
[2019-05-01] MEDS: BUMETANIDE 10 MG in SODIUM CHLORIDE 0.9% 100 ML 60 ML IV SCH ×2 (08:30→18:30)
[2019-05-01] MEDS: MYRBETRIQ 50MG PO SCH (09:00)
[2019-05-01] MEDS: METOPROLOL TARTRATE 25 MG TAB PO SCH (09:00)
[2019-05-01] MEDS: POTASSIUM CHLORIDE 20 MEQ TAB CR PO SCH (09:45)
[2019-05-01] MEDS: LEVOTHYROXINE SODIUM 50 MCG TAB PO SCH (09:45)
[2019-05-01] MEDS: LIOTHYRONINE SODIUM 5 MCG TAB PO SCH (09:45)
[2019-05-01] MEDS: CLOPIDOGREL BISULFATE 75 MG TAB PO SCH (09:45)
[2019-05-01] MEDS: RIVAROXABAN 15 MG TABLET PO SCH (09:45)
[2019-05-01] MEDS: COLCHICINE 0.6 MG TAB PO SCH (09:45)
[2019-05-01] MEDS: ASPIRIN 81 MG CHEW TAB PO SCH (09:45)
[2019-05-01] MEDS: METOLAZONE 5 MG TAB PO SCH (09:45)
[2019-05-01] MEDS: METOPROLOL TARTRATE 50 MG TAB PO SCH ×2 (09:45→16:42)
--- NOTE | 2019-05-01 11:51 | Progress Note ---
DATE: 05/01/2019 Cardiology Progress Note SUBJECTIVE: The patient is without any new complaints this morning. He states his pain and swelling is getting better as well as his right upper hand swelling and redness. He denies any chest pain or shortness of breath. OBJECTIVE: VITAL SIGNS: Temperature 96.1, pulse 103, respiratory rate 18, blood pressure 141/77, and oxygen saturation 95% on 4 L nasal cannula. GENERAL: Alert and oriented x3, resting comfortably on the side of the bed, does not appear to be in any acute distress. NECK: Supple. No JVD noted. CARDIOVASCULAR: Irregular rate and rhythm. Systolic murmur present. S3 gallop noted. LUNGS: Diminished breath sounds throughout. No wheezing. No rhonchi or crackles. EXTREMITIES: 3+ nonpitting edema. CARDIOVASCULAR MEDICATIONS: Bumex IV drip, metolazone 5 mg p.o. daily, Xarelto 15 mg p.o. daily, Plavix 75 mg p.o. daily, and aspirin 81 mg p.o. daily. LABORATORY DATA: WBCs 6.03, hemoglobin 15.0, hematocrit 47.1, and platelets 246. Sodium 140, potassium 4.1, BUN 56, creatinine 1.88 . Telemetry, atrial fibrillation. IMPRESSION: 1. Xtwep-uy-mcxwnwd diastolic heart failure. 2. Chronic kidney disease. 3. Permanent atrial fibrillation. 4. Coronary artery disease. 5. Right upper extremity swelling and possible cellulitis. RECOMMENDATIONS: Infectious Disease recommendations. Continue the above-listed cardiac medication, in addition resume beta-blockers. Volume management per athletic monitor. We will continue to follow this patient. Dictated by Pinky Golden NP MD ASHLEY Lopez/STEVE /[id number]
--- NOTE | 2019-05-01 18:45 | NUR ---
Received bedside report from day shift RN. The patient is laying on the bed, side rails up x2, call light within reach, bed height low and wheels lock. The patient is not in distress. The patient would like to have all his night medications at one time to sleep for the rest of the night.
[2019-05-01] MEDS: SERTRALINE HCL 50 MG TAB PO SCH (20:06)
[2019-05-01] MEDS: TAMSULOSIN HCL 0.4 MG CAP PO SCH (20:06)
[2019-05-01] MEDS: LIDOCAINE 5% PATCH TP SCH (20:06)
[2019-05-01] MEDS: ALLOPURINOL 300 MG TAB PO SCH (20:06)
[2019-05-01] MEDS: ROPINIROLE HCL 0.25 MG TAB PO SCH (20:06)
[2019-05-01] MEDS: LATANOPROST(OPTH) 2.5 ML BTL OU SCH (20:06)
--- NOTE | 2019-05-01 22:38 | Progress Note ---
DATE: 05/01/2019 SUBJECTIVE: Mr. Sharma is doing much better today. His hand is much better. REVIEW OF SYSTEMS: Negative. PHYSICAL EXAMINATION: GENERAL: He is currently alert, oriented, does not seem to be in acute distress. VITAL SIGNS: Stable, currently afebrile. HEENT: Not icteric. NECK: Supple. CHEST: Clear. HEART: S1 and S2. ABDOMEN: Soft. Bowel sounds present. EXTREMITIES: Positive tenderness of the hand. There is no erythema or edema at the present time. IMPRESSION AND PLAN: 1. Inflammation of the hand, cellulitis/I am also concerned about gout. Clinically, he looks much better today. I have him on meropenem and Zyvox since he was on some antibiotic without improvement, but today he looks much better. 2. Gout. He is on steroid. 3. Chronic kidney disease, stable. 4. History of congestive heart failure. 5. Continue with the same for now. MD CATHERINE Melendez/STEVE /[id number]
[2019-05-02] MEDS: METHYLPREDNISOLONE SOD SUCC 40 MG/ML VIAL 1ML IV SCH ×2 (05:32→17:39)
[2019-05-02] MEDS: LINEZOLID 600 MG/D5W 300ML 300 ML IV SCH ×2 (05:32→17:39)
[2019-05-02] MEDS: BUMETANIDE 10 MG in SODIUM CHLORIDE 0.9% 100 ML 60 ML IV SCH ×2 (05:32→15:35)
[2019-05-02] MEDS: MEROPENEM 500MG/ NS 50ML 50 ML IV SCH ×2 (05:32→17:00)
[2019-05-02 05:41] LABS: HEMATOCRIT 45.7 % (38.2-49.6); HEMOGLOBIN 14.7 g/dL (14.0-18.0); LYMPHOCYTES % 10.2 % (18.0-39.1); MEAN CORPUSCULAR HEMOGLOBIN 28.4 pg (28-32); MEAN CORPUSCULAR HGB CONC 32.2 g/dL (31-35); MEAN CORPUSCULAR VOLUME 88.4 fL (81-99); MONOCYTES # (AUTO) 0.4 (0.2-0.8); MONOCYTES % 3.9 % (4.4-11.3); NEUTROPHILS % 85.5 % (38.7-80.0); PLATELET COUNT 254 x10e3/uL (140-360); RED BLOOD COUNT 5.17 x10e6/uL (4.3-5.7)
[2019-05-02 06:02] LABS: ANION GAP 16.6 mmol/L (8-16); CALCIUM 9.8 mg/dL (8.4-10.2); CREATININE, SERUM 2.09 mg/dL (0.72-1.25); POTASSIUM 3.6 mmol/L (3.5-5.1)
[2019-05-02 06:11] VITALS: BP 107/58
[2019-05-02 07:45] VITALS: BP 112/59
--- NOTE | 2019-05-02 08:05 | Progress Note ---
DATE: 05/02/2019 Cardiology Progress Note SUBJECTIVE: The patient is without any complaints, he states he feels very well. Denies any shortness of breath or chest pain. OBJECTIVE: VITAL SIGNS: Temperature 98.8, pulse 77, respiratory rate 18, blood pressure 107/58, oxygen saturation 97% on 3 L nasal cannula. GENERAL: Alert and oriented x3, resting on the side of the bed, does not appear to be in any acute distress. NECK: Supple. No JVD noted. CARDIOVASCULAR: Irregular rate and rhythm. Systolic murmur present. S3 noted. LUNGS: Diminished breath sounds throughout. No wheezing. No rhonchi or crackles. EXTREMITIES: 3+ nonpitting edema. CARDIOVASCULAR MEDICATIONS: Bumex IV titrate, metolazone 5 mg p.o. daily, Xarelto 15 mg p.o. daily, Plavix 75 mg p.o. daily, aspirin 81 mg p.o. daily, and metoprolol tartrate 50 mg p.o. b.i.d. LABORATORY DATA: WBC 9.35, hemoglobin 14.7, hematocrit 45.7, platelets 254. Sodium 136, potassium 3.6, BUN 69, creatinine 2.09. BNP 286.3. TELEMETRY: Atrial flutter. IMPRESSION: 1. Acute on chronic diastolic heart failure. 2. Chronic kidney disease. 3. Permanent atrial fibrillation. 4. Coronary artery disease status post PCI in September 2018. 5. Right upper extremity swelling and cellulitis. 6. History of gastrointestinal bleed. RECOMMENDATION: Discontinue Plavix at this time, continue aspirin and Xarelto. Continue the rest of the above list of cardiac medications. Continue volume management per solar pv installer. Infectious Disease managing infection. We will continue to follow this patient very closely. Dictated by Pinky Golden, MADELAINE MD ASHLEY Lopez/STEVE /[id number]
[2019-05-02] MEDS: COLCHICINE 0.6 MG TAB PO SCH (08:55)
[2019-05-02] MEDS: LIOTHYRONINE SODIUM 5 MCG TAB PO SCH (08:55)
[2019-05-02] MEDS: ASPIRIN 81 MG CHEW TAB PO SCH (08:55)
[2019-05-02] MEDS: RIVAROXABAN 15 MG TABLET PO SCH (08:56)
[2019-05-02] MEDS: POLYETHYLENE GLYCOL 3350 17 GM PACK PO SCH ×2 (08:56→17:39)
[2019-05-02] MEDS: METOLAZONE 5 MG TAB PO SCH (08:56)
[2019-05-02] MEDS: POTASSIUM CHLORIDE 20 MEQ TAB CR PO SCH (08:56)
[2019-05-02] MEDS: LEVOTHYROXINE SODIUM 50 MCG TAB PO SCH (08:56)
[2019-05-02] MEDS: METOPROLOL TARTRATE 50 MG TAB PO SCH ×2 (08:56→17:39)
[2019-05-02] MEDS: MYRBETRIQ 50MG PO SCH (08:57)
[2019-05-02 09:02] VITALS: BP 112/59
--- NOTE | 2019-05-02 10:38 | NUR ---
Paged renal regarding continuing with Bumex drip and elevated creatinine. Awaiting call back.
[2019-05-02 11:48] VITALS: BP 99/56
[2019-05-02 15:40] VITALS: BP 109/57
--- NOTE | 2019-05-02 15:56 | Progress Note ---
DATE: 05/02/2019 SUBJECTIVE: Mr. Sharma is doing better. No new complaints. His hand is doing much better. PHYSICAL EXAMINATION: GENERAL: He is currently alert, oriented, does not seem to be in acute distress. VITAL SIGNS: Stable, afebrile. HEENT: There is no icteric. NECK: Supple. CHEST: Clear. HEART: S1, S2. No S3, S4, or murmur. ABDOMEN: Soft. Bowel sounds present. EXTREMITIES: No tenderness. No edema in the hand. There is no erythema or edema. REVIEW OF SYSTEMS: Otherwise negative. IMPRESSION AND PLAN: Cellulitis of the hand, improving. Differential diagnosis remain gout also improving. If he continued to improve, can discontinue antibiotic in the morning and discontinue his steroid. Congestive heart failure. Per Internal Medicine, other medical problem seem to be stable. Discussed with the patient. MD CATHERINE Melendez/STEVE /[id number]
--- NOTE | 2019-05-02 18:45 | NUR ---
Received bedside report from day shift RN. The patient is laying on the bed, side rails up x2, call light within reach, bed height low and wheels lock. The patient is not in distress. The patient would like to have all his night medications at one time around 2100 to sleep for the rest of the night.
[2019-05-02 20:41] VITALS: BP 105/65
[2019-05-02] MEDS: LIDOCAINE 5% PATCH TP SCH (21:17)
[2019-05-02] MEDS: LATANOPROST(OPTH) 2.5 ML BTL OU SCH (21:17)
[2019-05-02] MEDS: ALLOPURINOL 300 MG TAB PO SCH (21:17)
[2019-05-02] MEDS: TAMSULOSIN HCL 0.4 MG CAP PO SCH (21:17)
[2019-05-02] MEDS: SERTRALINE HCL 50 MG TAB PO SCH (21:17)
[2019-05-02] MEDS: ROPINIROLE HCL 0.25 MG TAB PO SCH (21:17)
[2019-05-03] VITALS (7 sets, daily range): BP systolic 104–124; BP diastolic 61–88
[2019-05-03] MEDS: BUMETANIDE 10 MG in SODIUM CHLORIDE 0.9% 100 ML 60 ML IV SCH ×2 (00:30→09:15)
--- NOTE | 2019-05-03 03:18 | Consultation ---
DATE OF CONSULTATION: 04/30/2019 ADDENDUM: The patient is seen and examined again. I also called the radiologist to review the MRI finding, he thinks more consistent with cellulitis. The patient has been on a Bumex drip for his congestive heart failure, so I think the differential diagnosis still remain gout versus cellulitis of hospital-acquired. So, because he has kidney disease, I am going to recommend to continue with Solu-Medrol 40 q.12h. We will put him on Zyvox 600 q.12h for gram-positive end-stage kidney disease. I am going to avoid vancomycin and we will put him on meropenem 500 q.12 since gram negative. I will get blood cultures and uric acid level and reassess. 1. Congestive heart failure, fluid overload, the patient has already been seen by Cardiology and Nephrology. 2. Chronic kidney disease. 3. Atrial fibrillation, on Xarelto. 4. Chronic obstructive pulmonary disease. 5. We will follow with you. MD CATHERINE Melendez/STEVE /[id number]
[2019-05-03] MEDS: METHYLPREDNISOLONE SOD SUCC 40 MG/ML VIAL 1ML IV SCH (05:13)
[2019-05-03] MEDS: LINEZOLID 600 MG/D5W 300ML 300 ML IV SCH (05:13)
[2019-05-03] MEDS: MEROPENEM 500MG/ NS 50ML 50 ML IV SCH (05:13)
[2019-05-03 05:54] LABS: HEMATOCRIT 47.3 % (38.2-49.6); HEMOGLOBIN 15.1 g/dL (14.0-18.0); LYMPHOCYTES % 11.4 % (18.0-39.1); MEAN CORPUSCULAR HEMOGLOBIN 28.2 pg (28-32); MEAN CORPUSCULAR HGB CONC 31.9 g/dL (31-35); MEAN CORPUSCULAR VOLUME 88.4 fL (81-99); MONOCYTES # (AUTO) 0.3 (0.2-0.8); NEUTROPHILS # (AUTO) 7.2 (2.1-6.9); NEUTROPHILS % 84.1 % (38.7-80.0); PLATELET COUNT 275 x10e3/uL (140-360); RED BLOOD COUNT 5.35 x10e6/uL (4.3-5.7); RED CELL DISTRIBUTION WIDTH 14.9 % (11.7-14.4)
[2019-05-03 06:06] LABS: ANION GAP 17.1 mmol/L (8-16); CALCIUM 9.8 mg/dL (8.4-10.2); CREATININE, SERUM 2.22 mg/dL (0.72-1.25); POTASSIUM 3.1 mmol/L (3.5-5.1)
[2019-05-03] MEDS: ALBUTEROL/IPRATROPIUM 3 ML NEB NEB PRN (07:00)
[2019-05-03] MEDS ORDERED: POTASSIUM CHLORIDE 20 MEQ TAB CR PO ONE (07:30)
[2019-05-03] MEDS: MYRBETRIQ 50MG PO SCH (09:00)
[2019-05-03] MEDS: POLYETHYLENE GLYCOL 3350 17 GM PACK PO SCH ×2 (09:15→17:00)
[2019-05-03] MEDS: LEVOTHYROXINE SODIUM 50 MCG TAB PO SCH (09:15)
[2019-05-03] MEDS: METOPROLOL TARTRATE 50 MG TAB PO SCH ×2 (09:15→16:45)
[2019-05-03] MEDS: RIVAROXABAN 15 MG TABLET PO SCH (09:15)
[2019-05-03] MEDS: POTASSIUM CHLORIDE 20 MEQ TAB CR PO SCH (09:15)
[2019-05-03] MEDS: COLCHICINE 0.6 MG TAB PO SCH (09:15)
[2019-05-03] MEDS: LIOTHYRONINE SODIUM 5 MCG TAB PO SCH (09:15)
[2019-05-03] MEDS: METOLAZONE 5 MG TAB PO SCH (09:15)
[2019-05-03] MEDS: ASPIRIN 81 MG CHEW TAB PO SCH (09:15)
--- NOTE | 2019-05-03 11:25 | Progress Note ---
DATE: 05/03/2019 Cardiology Progress Note SUBJECTIVE: No major events overnight. OBJECTIVE: VITAL SIGNS: Temperature afebrile, pulse 79, respiratory rate 19, blood pressure 124/74, and saturating 95% on nasal cannula. GENERAL: An elderly white man, well developed, well nourished, no acute distress. CARDIOVASCULAR: Regular rate and rhythm. No murmurs, rubs, or gallops. LUNGS: Scattered wheezes. Clear to auscultation, otherwise. ABDOMEN: Soft, nontender, nondistended. NEURO AND PSYCH: Alert and oriented to person, place, and time. Normal affect. EXTREMITIES: Have 3+ edema below the shins with redness and chronic venous stasis changes. SKIN: Weeping with some blisters. INPATIENT MEDICATIONS: Reviewed. LABORATORY DATA: Reviewed. TELEMETRY DATA: Reviewed, shows rate controlled atrial flutter, and atrial fibrillation. ASSESSMENT AND PLAN: 1. Acute on chronic diastolic heart failure. 2. Chronic kidney disease. 3. Permanent atrial fibrillation. 4. Coronary artery disease status post percutaneous coronary intervention in September 2018. 5. Right upper extremity swelling and cellulitis. 6. History of gastrointestinal bleeding. 7. Chronic obstructive pulmonary disease exacerbation. RECOMMENDATIONS: Continue aspirin and Xarelto. Continue above cardiovascular medications otherwise. Volume management per Nephrology. Infectious Disease is managing cellulitis. We will continue to follow the patient closely. Thank you for this consult. MD NGHIA Veliz/ADRIANL /[id number]
[2019-05-03] MEDS: BUMETANIDE 1 MG TAB PO SCH (16:45)
[2019-05-03] MEDS ORDERED: SODIUM CHLORIDE 0.9% 250ML 250 ML ONE (19:48)
[2019-05-03] MEDS: TAMSULOSIN HCL 0.4 MG CAP PO SCH (19:50)
[2019-05-03] MEDS: LIDOCAINE 5% PATCH TP SCH (19:50)
[2019-05-03] MEDS: LATANOPROST(OPTH) 2.5 ML BTL OU SCH (19:50)
[2019-05-03] MEDS: ALLOPURINOL 300 MG TAB PO SCH (19:50)
[2019-05-03] MEDS: ROPINIROLE HCL 0.25 MG TAB PO SCH (19:50)
[2019-05-03] MEDS: SERTRALINE HCL 50 MG TAB PO SCH (19:50)
[2019-05-03] MEDS ORDERED: LINEZOLID 600 MG/D5W 300ML 300 ML IV SCH (20:00)
[2019-05-03] MEDS ORDERED: MEROPENEM 500MG/ NS 50ML 50 ML IV SCH (21:00)
[2019-05-04 05:29] LABS: BASOPHILS % 0.1 % (0.0-1.0); HEMOGLOBIN 16.2 g/dL (14.0-18.0); LYMPHOCYTES # (AUTO) 1.4 (1.0-3.2); LYMPHOCYTES % 14.1 % (18.0-39.1); MEAN CORPUSCULAR HGB CONC 31.8 g/dL (31-35); MEAN CORPUSCULAR VOLUME 88.1 fL (81-99); MONOCYTES # (AUTO) 0.8 (0.2-0.8); MONOCYTES % 8.2 % (4.4-11.3); NEUTROPHILS # (AUTO) 7.7 (2.1-6.9); NEUTROPHILS % 77.1 % (38.7-80.0); PLATELET COUNT 292 x10e3/uL (140-360); RED BLOOD COUNT 5.79 x10e6/uL (4.3-5.7); RED CELL DISTRIBUTION WIDTH 14.8 % (11.7-14.4)
[2019-05-04] MEDS ORDERED: FLOMAX0.4 MG PO (05:40)
[2019-05-04] MEDS ORDERED: BUMETANIDE1 MG PO (05:40)
[2019-05-04] MEDS ORDERED: Lidocaine Patch TP (05:40)
[2019-05-04] MEDS ORDERED: METOLAZONE5 MG PO (05:40)
[2019-05-04 05:51] LABS: ANION GAP 17.5 mmol/L (8-16); CALCIUM 10.2 mg/dL (8.4-10.2); CREATININE, SERUM 2.57 mg/dL (0.72-1.25); MAGNESIUM 3.1 MG/DL (1.3-2.1); POTASSIUM 3.5 mmol/L (3.5-5.1)
[2019-05-04 05:53] VITALS: BP 105/72
[2019-05-04 07:30] VITALS: BP 109/64
--- NOTE | 2019-05-04 07:30 | NUR ---
REC'D PATIENT AAOX3, OXYGEN BEING DELIVERED AT 4L/MIN, NO S/S OF DISTRESS, IV TO RIGHT FA WITH NO COMPLICATIONS, TELE BOX #30 AT [facility]. SIDE RAILS UP X2, BED IN LOWEST POSITION, AND CALL [facility] WITHIN REACH.
[2019-05-04 07:47] VITALS: BP 109/64
[2019-05-04] MEDS: POLYETHYLENE GLYCOL 3350 17 GM PACK PO SCH (09:00)
[2019-05-04] MEDS: MYRBETRIQ 50MG PO SCH (09:00)
--- NOTE | 2019-05-04 09:00 | NUR ---
PT IS TO BE DISCHARGED
[2019-05-04] MEDS: ASPIRIN 81 MG CHEW TAB PO SCH (09:48)
[2019-05-04] MEDS: BUMETANIDE 1 MG TAB PO SCH (09:48)
[2019-05-04] MEDS: COLCHICINE 0.6 MG TAB PO SCH (09:49)
[2019-05-04] MEDS: METOLAZONE 5 MG TAB PO SCH (09:49)
[2019-05-04] MEDS: POTASSIUM CHLORIDE 20 MEQ TAB CR PO SCH (09:49)
[2019-05-04] MEDS: LIOTHYRONINE SODIUM 5 MCG TAB PO SCH (09:49)
[2019-05-04] MEDS: RIVAROXABAN 15 MG TABLET PO SCH (09:50)
[2019-05-04] MEDS: LEVOTHYROXINE SODIUM 50 MCG TAB PO SCH (09:50)
[2019-05-04] MEDS: METOPROLOL TARTRATE 50 MG TAB PO SCH (09:51)
--- NOTE | 2019-05-04 10:54 | NUR ---
REMOVED IV FROM RT FA WITHOUT ANY COMPLICATIONS. TELE BOX REMOVED. DISCHARGE AND PRESCRIPTION PAPERS GIVEN AND EXPLAINED TO PATIENT. PATIENT UNDERSTOOD THAT HE NEEDS TO FOLLOW UP WITH PCP IN 1-2 WEEKS AND TO CON'T HOME MEDS AND DROP OFF PRESCRIPTIONS AT PHARMACY. ASSISTED PATIENT IN GETTING INTO WHEELCHAIR AND ESCORTED PATIENT TO FRONT LOBBY WHERE PICKED HIM UP.
--- NOTE | 2019-05-04 14:27 | Progress Note ---
DATE: 05/04/2019 SUBJECTIVE: The patient denies chest pain or shortness of breath. OBJECTIVE: VITAL SIGNS: Temperature 95.6 degrees, pulse 59, respiratory rate 19, blood pressure 109/64, and oxygen saturation 96% on 3 L nasal cannula. GENERAL: Awake, alert, no acute distress. LUNGS: Clear to auscultation bilaterally. No wheezes or crackles. CARDIOVASCULAR: Normal rate. Regular rhythm. No murmur. Normal S1, S2. ABDOMEN: Soft, nontender. EXTREMITIES: 2+ pitting edema bilaterally with skin changes consistent with chronic venous stasis. CARDIAC MEDICATIONS: Metoprolol tartrate 50 mg p.o. b.i.d., levothyroxine 100 mcg p.o. daily, rivaroxaban 15 mg p.o. daily, metolazone 5 mg p.o. daily, liothyronine 5 mcg p.o. daily, Bumex 4 mg p.o. b.i.d., and aspirin 81 mg p.o. daily. LABORATORY DATA: WBC 10.03, hemoglobin 16.2, hematocrit 51, and platelets 292. Sodium 138, potassium 3.5, chloride 81, CO2 of 43, BUN 95, and creatinine 2.57. BNP 175. TELEMETRY: Atrial fibrillation. IMPRESSION: 1. Acute on chronic diastolic heart failure. 2. Acute on chronic kidney disease. 3. Permanent atrial fibrillation with coronary artery disease, status post PCI in September 2018. 4. History of gastrointestinal bleeding. 5. Chronic obstructive pulmonary disease exacerbation. 6. Right upper extremity swelling and cellulitis. RECOMMENDATIONS: Continue with current cardiac medications. Volume management per Nephrology given chronic kidney disease. Antibiotics per Infectious Disease. Monitor the patient on telemetry while admitted. Thank you for this consult. We will continue to follow. Zenaida Randolph MD ABS/MODL /[id number]
--- NOTE | 2019-05-06 04:08 | Discharge Summary ---
ADMISSION DIAGNOSES: Acute on chronic diastolic congestive heart failure, hypertension complicated by chronic diastolic congestive heart failure and chronic kidney disease 3, chronic kidney disease 3, atrial fibrillation, chronic obstructive pulmonary disease, glaucoma, hypothyroidism, anxiety, gout, bilateral lower extremity blisters present on admission. DISCHARGE DIAGNOSES: Acute on chronic diastolic congestive heart failure, hypertension complicated by chronic diastolic congestive heart failure and chronic kidney disease 3, chronic kidney disease 3, atrial fibrillation, chronic obstructive pulmonary disease, glaucoma, hypothyroidism, anxiety, gout, bilateral lower extremity blisters present on admission. MEDICAL HISTORY: CAD, type 2 diabetes, COPD, CKD 3, atrial fibrillation, hypothyroidism, gout, neuropathy, RLS, chronic back pain, venous stasis, osteoarthritis, GERD, anxiety, glaucoma, ankylosing spondylitis, MJ, urinary retention, chronic diastolic CHF. SURGICAL HISTORY: Dilaudid pain pump placement, prostate surgery, vein ablation, and cardiac stent x5. FAMILY HISTORY: The patient's mom and dad have high blood pressure and pacemaker. The patient's mom had atrial fibrillation. SOCIAL HISTORY: The patient admits to smoking 1-1/2 pack of cigarettes a day for 30 years. HOSPITAL COURSE: A 73-year-old male with history of diastolic CHF, admits with complaints of bilateral lower extremity edema, shortness of breath and dyspnea on exertion that worsened over the last month. He thinks that it began when his diuretic was changed to Bumex. He denied cough, wheeze, congestion and fever. On admission, the patient was initially started on Bumex IV push. Echo showed an EF of 55% to 60%. EKG showed atrial fibrillation at a rate of 68. Chest x-ray showed mild central pulmonary vascular congestion. Bilateral lower extremity venous Doppler was negative. Right upper extremity Doppler was negative. As the Bumex push did not control the edema, he was switched to a Bumex drip for many, many days before a major difference was noted. He developed what appeared to be gout or cellulitis on the right hand, so we did an MRI that showed edema with no abscess. He was started on Merrem and Zyvox per Infectious Disease as well as colchicine for possible gout. After a couple of days, the erythema and swelling of the hand improved. The patient was eventually taken off the Bumex drip and switched back to Bumex p.o. for discharge. His dose was increased to 4 mg b.i.d. and he was also given a metolazone prescription. The patient will follow up with primary care and Nephrology as discussed. The patient understands discharge instructions and agrees to plan. Dictated by Tamela Young NP MD MARKUS Ladd/STEVE /[id number]
== END 2019-05-04 10:54 | disposition home health service (06) | DRG 291 ==
LOC: ER 17:12 → ERHOLD 19:41 → MED/SURG2 21:41
PROVIDERS: ADMIT Internal Medicine; ATTEND Internal Medicine
DX: I13.0 Hypertensive heart and chronic kidney disease with heart failure and stage 1 through stage 4 chronic kidney disease, or unspecified chronic kidney disease (principal); I50.33 Acute on chronic diastolic (congestive) heart failure; L03.116 Cellulitis of left lower limb; L03.115 Cellulitis of right lower limb; N17.9 Acute kidney failure, unspecified; L03.113 Cellulitis of right upper limb; J44.1 Chronic obstructive pulmonary disease with (acute) exacerbation; Z95.5 Presence of coronary angioplasty implant and graft; Z87.891 Personal history of nicotine dependence; S80.822A Blister (nonthermal), left lower leg, initial encounter; S80.821A Blister (nonthermal), right lower leg, initial encounter; Z82.49 Family history of ischemic heart disease and other diseases of the circulatory system; E11.22 Type 2 diabetes mellitus with diabetic chronic kidney disease; N18.3 Chronic kidney disease, stage 3 (moderate); E03.9 Hypothyroidism, unspecified; N40.0 Benign prostatic hyperplasia without lower urinary tract symptoms; G20 Parkinson's disease; M10.9 Gout, unspecified; M45.9 Ankylosing spondylitis of unspecified sites in spine; E87.6 Hypokalemia; H44.519 Absolute glaucoma, unspecified eye; F41.9 Anxiety disorder, unspecified; I48.2 Chronic atrial fibrillation; Z79.82 Long term (current) use of aspirin
CPT/HCPCS: 36415; 71046; 80048; 80053; 81001; 82550; 82553; 82948; 83036; 83735; 83880; 84484; 84550; 85025; 85610; 85730; 87040; 93005; 93306; 93970; 93971; 94640; 96374; 99284; J1940; J2020; J2270; J2920; J7050

== ENCOUNTER 2019-05-26 14:10 | Observation (INO) | payer BC, MEDICARE ==
[~2019-05-26] VITALS: Ht 175.3 cm; Wt 100.4 kg
[~2019-05-26 14:10] MED LIST changes: +ALCLOMETASONE; +ALLOPURINOL300 MG PO; +BUMETANIDE1 MG PO; +COSENTYX; +FLOMAX0.4 MG PO; +Lidocaine Patch TP; +POTASSIUM CHLO20 ME1 PO
--- OUTSIDE RECORDS SUMMARY | 2019-05-26 14:15 | XMS REPORT | Clinical Summary ---
Author Author Juan [facility] Organization [facility] Address Unknown Phone Unavailable Care Team Providers Care Wire Weaver Name Role Phone Asked, No Pcp PCP Unavailable Allergies Comments Active Allergy Reactions Severity Noted Date "muscle cramps" Pregabalin Other (See 05/05/2019 Comments) Medications End Date Status Medication Sig Dispensed Refills Start Date Active albuterol (PROAIR Inhale 2 0 HFA,PROVENTIL puffs every 6 HFA,VENTOLIN HFA) 90 (six) hours mcg/actuation inhaler as needed for wheezing or shortness of breath. Active albuterol (ACCUNEB) 2.5 Take 2.5 mg 0 mg /3 mL (0.083 %) by nebulizer solution nebulization 2 (two) times a day. Active allopurinol (ZYLOPRIM) Take 300 mg 0 300 MG tablet by mouth daily. Active alclomethasone (ACLOVATE) Apply 1 0 0.05 % cream application topically daily. Active ALPRAZolam (XANAX) 0.5 MG Take 0.5 mg 0 tablet by mouth nightly as needed for anxiety. Active budesonide (PULMICORT) Take 0.5 mg 0 0.5 mg/2 mL nebulizer by solution nebulization once daily. Active aspirin (ECOTRIN) 81 MG Take 81 mg by 0 enteric coated tablet mouth every evening. Active clobetasol (TEMOVATE) Apply 1 0 0.05 % cream application topically daily. Active baclofen (LIORESAL) 10 MG Take 10 mg by 0 tablet mouth 3 (three) times a day. Active sodium chloride 7 % Take 4 mL by 0 nebulizer solution nebulization as needed for cough. Active BUMETanide (BUMEX) 2 MG Take 4 mg by 0 tablet mouth 2 (two) times a day. Active clopidogrel (PLAVIX) 75 Take 75 mg by 0 mg tablet mouth every evening. Active colchicine 0.6 mg tablet Take 0.6 mg 0 by mouth every evening. Active hydromorPHONE (DILAUDID) Take 8 mg by 0 8 MG tablet mouth every 6 (six) hours as needed for moderate pain. Active secukinumab (COSENTYX) Inject under 0 150 mg/mL syringe the skin every 30 (thirty) days. Active latanoprost (XALATAN) Administer 1 0 0.005 % ophthalmic drop to both solution eyes nightly. Active sodium chloride 0.9% by 0 parenteral solution intrathecal route continuously. Med: Dilaudid and Bupivacaine Active levothyroxine (SYNTHROID, Take 100 mcg 0 LEVOXYL) 100 mcg tablet by mouth daily. Active liothyronine (CYTOMEL) 5 Take 5 mcg by 0 MCG tablet mouth daily. Active methenamine (HIPREX) 1 Take 1 g by 0 gram tablet mouth daily. Active mirabegron (MYRBETIQ) 50 Take 50 mg by 0 mg tablet extended mouth every release 24 hr evening. Active potassium chloride Take 20 mEq 0 (K-DUR) 20 MEQ CR tablet by mouth 2 (two) times a day. Active pramipexole (MIRAPEX) Take 0.25 mg 0 0.25 MG tablet by mouth nightly. Takes 2-3 hours before bed Active rivaroxaban (XARELTO) 15 Take 15 mg by 0 mg tablet mouth daily. Active rOPINIRole (REQUIP) 0.5 Take 0.5 mg 0 MG tablet by mouth nightly. Active sertraline (ZOLOFT) 50 MG Take 50 mg by 0 tablet mouth every evening. Active testosterone cypionate Inject 200 mg 0 (DEPOTESTOTERONE into the CYPIONATE) 200 mg/mL shoulder, injection thigh, or buttocks every 14 (fourteen) days. Active DULCOLAX, BISACODYL, ORAL Take 2 0 tablets by mouth every evening. Active folic acid (FOLVITE) 400 Take 400 mcg 0 MCG tablet by mouth 2 (two) times a day. Active cyanocobalamin, vitamin Take 10,000 0 B-12, (VITAMIN B-12 ORAL) mcg by mouth once a week. Active cholecalciferol, vitamin Take 6,000 0 D3, (VITAMIN D3) 2,000 Units by unit capsule capsule mouth every evening. Active psyllium husk (WAL-MUCIL Take by mouth 0 FIBER ORAL) every morning. 06/10/2019 Active metoprolol tartrate Take 0.5 30 tablet 0 (LOPRESSOR) 25 mg tablet tablets (12.5 9 mg total) by mouth 2 (two) times a day for 30 days. 05/11/2019 Discontinued metoprolol tartrate Take 25 mg by 0 (LOPRESSOR) 25 mg tablet mouth 2 (two) times a day. Active Problems Problem Noted Date COPD (chronic obstructive pulmonary disease) 05/06/2019 ALISON (acute kidney injury) 05/06/2019 Renal failure (ARF), acute on chronic 05/06/2019 Hypocalcemia 05/06/2019 A-fib 05/06/2019 Hypoproteinemia 05/06/2019 Hypothyroidism 05/06/2019 Metabolic encephalopathy 05/05/2019 Hypotension due to hypovolemia 05/05/2019 Hypokalemia 05/05/2019 Closed fracture of multiple ribs of right side 05/05/2019 Encounters Care Team Description Date Type Specialty Mery Mejia RN 05/11/2019 Patient Quality Outreach Eunice Reyes MD Zhang, Paul, MD Patel, Amitkumar Natvarlal, MD Metabolic encephalopathy (Primary Dx); Multiple skin tears; Jerking movements of extremities 05/05/2019 [facility] General Internal Medicine - Encounter 05/11/2019 after 05/25/2018 Social History Date Tobacco Use Types Packs/Day Years Used Former Smoker Smokeless Tobacco: Never Used Alcohol Use Drinks/Week oz/Week Comments Not Currently Sex Assigned at Date Recorded Not on file Industry Job Start Date Occupation Not on file Not on file Not on file Travel End Travel History Travel Start No recent travel history available. Last Filed Vital Signs Time Taken Vital Sign Reading 05/11/2019 7:29 AM CDT Blood Pressure 93/51 05/11/2019 12:05 PM CDT Pulse 87 05/11/2019 7:28 AM CDT Temperature 36 C (96.8 F) 05/11/2019 12:05 PM CDT Respiratory Rate 18 05/11/2019 7:29 AM CDT Oxygen Saturation 96% - Inhaled Oxygen - Concentration 05/05/2019 2:41 PM CDT Weight 88 kg (194 lb) 05/05/2019 2:41 PM CDT Height 175.3 cm (5' 9") 05/05/2019 2:41 PM CDT Body Mass Index 28.65 Plan of Treatment Health Maintenance Due Date Last Done Comments COLONOSCOPY SCREENING 1994 SHINGLES VACCINES (#1) 1994 65+ PNEUMOCOCCAL VACCINE 2009 (1 of 2 - PCV13) INFLUENZA VACCINE 05/27/2019 Procedures Comments Procedure Name Priority Date/Time Associated Diagnosis LINE/DRAIN REMOVAL Routine 05/11/2019 Metabolic encephalopathy 12:41 PM CDT POC GLUCOSE Routine 05/08/2019 7:53 PM CDT MRI LUMBAR SPINE WO Routine 05/08/2019 CONTRAST 5:40 PM CDT MRI THORACIC SPINE WO Routine 05/08/2019 CONTRAST 5:39 PM CDT ESTIMATED GFR Routine 05/08/2019 6:17 AM CDT VENOUS BLOOD GAS Routine 05/08/2019 6:17 AM CDT PHOSPHORUS LEVEL Routine 05/08/2019 6:17 AM CDT MAGNESIUM LEVEL Routine 05/08/2019 6:17 AM CDT PARTIAL THROMBOPLASTIN Routine 05/08/2019 TIME (PTT) 6:17 AM CDT PROTHROMBIN TIME WITH INR Routine 05/08/2019 6:17 AM CDT IONIZED CALCIUM Routine 05/08/2019 6:17 AM CDT BASIC METABOLIC PANEL Routine 05/08/2019 6:17 AM CDT HC COMPLETE BLD COUNT Routine 05/08/2019 W/AUTO DIFF 6:17 AM CDT POC GLUCOSE Routine 05/07/2019 7:18 PM CDT POC GLUCOSE Routine 05/07/2019 5:55 PM CDT POTASSIUM LEVEL Routine 05/07/2019 2:35 PM CDT PHOSPHORUS LEVEL Routine 05/07/2019 2:35 PM CDT XR PELVIS 3+ VW Routine 05/07/2019 12:43 PM CDT POC GLUCOSE Routine 05/07/2019 11:25 AM CDT ECHOCARDIOGRAM 2D Routine 05/07/2019 COMPLETE W MMODE SPECTRAL 11:00 AM CDT COLOR DOPPLER ([id number]) POC GLUCOSE Routine 05/07/2019 7:41 AM CDT POC GLUCOSE Routine 05/07/2019 4:31 AM CDT ESTIMATED GFR Routine 05/07/2019 4:15 AM CDT PARTIAL THROMBOPLASTIN Routine 05/07/2019 TIME (PTT) 4:15 AM CDT PROTHROMBIN TIME WITH INR Routine 05/07/2019 4:15 AM CDT VENOUS BLOOD GAS Routine 05/07/2019 4:15 AM CDT PHOSPHORUS LEVEL Routine 05/07/2019 4:15 AM CDT MAGNESIUM LEVEL Routine 05/07/2019 4:15 AM CDT BASIC METABOLIC PANEL Routine 05/07/2019 4:15 AM CDT T4, FREE Routine 05/07/2019 4:15 AM CDT THYROID STIMULATING Routine 05/07/2019 HORMONE 4:15 AM CDT CBC WITH PLATELET AND Routine 05/07/2019 DIFFERENTIAL 4:15 AM CDT POC GLUCOSE Routine 05/07/2019 12:25 AM CDT POC GLUCOSE Routine 05/06/2019 8:49 PM CDT POC GLUCOSE Routine 05/06/2019 4:47 PM CDT US RENAL Routine 05/06/2019 1:55 PM CDT POC GLUCOSE Routine 05/06/2019 12:29 PM CDT VENOUS BLOOD GAS Routine 05/06/2019 10:55 AM CDT ESTIMATED GFR Routine 05/06/2019 10:55 AM CDT BASIC METABOLIC PANEL Routine 05/06/2019 10:55 AM CDT POC GLUCOSE Routine 05/06/2019 8:29 AM CDT HC COMPLETE BLD COUNT Routine 05/06/2019 W/AUTO DIFF 5:00 AM CDT ESTIMATED GFR Routine 05/06/2019 5:00 AM CDT IONIZED CALCIUM Routine 05/06/2019 5:00 AM CDT PHOSPHORUS LEVEL Routine 05/06/2019 5:00 AM CDT MAGNESIUM LEVEL Routine 05/06/2019 5:00 AM CDT COMPREHENSIVE METABOLIC Routine 05/06/2019 PANEL 5:00 AM CDT POC GLUCOSE Routine 05/05/2019 11:17 PM CDT BLOOD CULTURE, AEROBIC & Routine 05/05/2019 ANAEROBIC 9:20 PM CDT ESTIMATED GFR Routine 05/05/2019 9:05 PM CDT AMMONIA LEVEL Routine 05/05/2019 9:05 PM CDT IONIZED CALCIUM Routine 05/05/2019 9:05 PM CDT PHOSPHORUS LEVEL Routine 05/05/2019 9:05 PM CDT MAGNESIUM LEVEL Routine 05/05/2019 9:05 PM CDT BASIC METABOLIC PANEL Routine 05/05/2019 9:05 PM CDT VENOUS BLOOD GAS STAT 05/05/2019 9:05 PM CDT LACTIC ACID LEVEL Routine 05/05/2019 9:05 PM CDT BLOOD CULTURE, AEROBIC & Routine 05/05/2019 ANAEROBIC 9:[address] CHEST WO CONTRAST STAT 05/05/2019 ABDOMEN WO CONTRAST 8:11 PM CDT PELVIS WO CONTRAST URINE DRUGS OF ABUSE STAT 05/05/2019 SCREEN 7:22 PM CDT URINALYSIS SCREEN AND STAT 05/05/2019 MICROSCOPY, WITH REFLEX 7:22 PM CDT TO CULTURE HEMOGLOBIN & HEMATOCRIT STAT 05/05/2019 7:22 PM CDT URINE CULTURE STAT 05/05/2019 7:22 PM CDT XR CHEST 1 VW PORTABLE Routine 05/05/2019 7:[address] HEAD WO CONTRAST STAT 05/05/2019 6:21 PM CDT TYPE AND SCREEN Routine 05/05/2019 3:33 PM CDT PARTIAL THROMBOPLASTIN STAT 05/05/2019 TIME (PTT) 3:33 PM CDT PROTHROMBIN TIME WITH INR STAT 05/05/2019 3:33 PM CDT HC COMPLETE BLD COUNT STAT 05/05/2019 W/AUTO DIFF 3:33 PM CDT ECG 12-LEAD STAT 05/05/2019 3:25 PM CDT ECG ED PRELIMINARY Routine 05/05/2019 INTERPRETATION 3:19 PM CDT CA INSERT NON-TUNNEL CV Routine 05/05/2019 CATH 3:19 PM CDT CA CRITICAL CARE, ADDL 30 Routine 05/05/2019 MIN 3:19 PM CDT CA CRITICAL CARE, E/M Routine 05/05/2019 30-74 MINUTES 3:19 PM CDT POC GLUCOSE Routine 05/05/2019 3:16 PM CDT ESTIMATED GFR STAT 05/05/2019 2:44 PM CDT COMPREHENSIVE METABOLIC STAT 05/05/2019 PANEL 2:44 PM CDT after 05/25/2018 Results * Line/Drain Removal (05/11/2019 12:41 PM CDT) Narrative Performed At Adam Padgett 05/11/2019 12:43 PM Line/Drain Removal Date/Time: 05/11/2019 12:41 PM Performed by: Adam Padgett Authorized by: Piedad Bangura MD Pre-procedure details: Line or drain removed:Other Indication(s) for removal:Treatment completed Patient position:Prone Removal procedure: Number of people performing procedure:1 Catheter intact?:Yes Insertion site:No redness, no swelling and no drainage Pressure applied to site?: Yes Number of minutes pressure applied:10 Dressing applied::4x4 sterile gauze and adhesive bandage Estimated blood loss (mL):0 Specimen(s):None * POC glucose (05/08/2019 7:53 PM CDT) Only the most recent of 13 results within the time period is included. POC glucose 101 (H) 65 - 99 mg/dL [facility] Comment: [facility] Notified RN HOSPITAL Meter ID: [id number] Vein Access Technician: Gage Moe Specimen Performing Organization Address City/State/Zipcode Phone Number [facility] DEPARTMENT OF [address] [place] [address] PATHOLOGY AND GENOMIC MEDICINE [facility] [address] [place] [address] HOSPITAL * MRI Lumbar Spine Wo Contrast (05/08/2019 5:40 PM CDT) Specimen Narrative Performed At [facility] EXAMINATION: MRI LUMBAR SPINE WO CONTRAST CLINICAL HISTORY: severe pain post fall COMPARISON:None TECHNIQUE: Multiplanar multisequence nonenhanced MRI examination was performed of the Lumbar spine. The patient was unable to tolerate the full exam. FINDINGS: The last fully formed disc is designated as L5-S1. Alignment is within normal limits. Vertebral body heights are maintained. Multilevel degenerative Modic type I endplate changes involving the anterior endplates at T12-L1, L1-L2, L2-L3, L4-L5, and L5-S1 with degenerative endplate edema involving the inferior and anterior aspect of the L1 endplate. No suspicious osseous lesion. Hemangioma within the L4 vertebral body. Bulky left paravertebral osteophyte formation of the lumbar spine. Conus medullaris terminates at the L1 level. Axial images through the disc spaces demonstrate the following: L1-L2: No significant posterior disc disease, spinal canal or neural foraminal stenosis. Mild bilateral facet hypertrophy. L2-L3: No significant posterior disc disease, spinal canal or neural foraminal stenosis. Mild bilateral facet hypertrophy. L3-L4: No significant posterior disc disease, spinal canal or neural foraminal stenosis. Mild to moderate bilateral facet hypertrophy. L4-L5: No significant posterior disc disease or spinal canal stenosis. Mild right neural foraminal narrowing. Patent left neural foramen. Moderate bilateral facet hypertrophy. L5-S1: Central posterior disc protrusion without significant spinal canal narrowing. Patent bilateral neural foramina. Moderate bilateral facet hypertrophy. No significant posterior disc disease, spinal canal or neural foraminal stenosis at other visualized levels. IMPRESSION: Somewhat limited evaluation given the absence of axial T2 sequences as the patient was unable to tolerate the full exam. No acute abnormality identified. Edema involving the anterior aspect of the inferior endplate of L1 which is favored to be degenerative in etiology. Vertebral body heights appear maintained. Multilevel degenerative changes of the lumbar spine without significant spinal canal narrowing. Small posterior disc protrusion at L5-S1. Additional degenerative changes are detailed above. [id number] Procedure Note Hm Interface, Radiology Results 05/08/2019 7:29 PM CDT EXAMINATION: MRI LUMBAR SPINE WO CONTRAST CLINICAL HISTORY: severe pain post fall COMPARISON: None TECHNIQUE: Multiplanar multisequence nonenhanced MRI examination was performed of the Lumbar spine. The patient was unable to tolerate the full exam. FINDINGS: The last fully formed disc is designated as L5-S1. Alignment is within normal limits. Vertebral body heights are maintained. Multilevel degenerative Modic type I endplate changes involving the anterior endplates at T12-L1, L1-L2, L2-L3, L4-L5, and L5-S1 with degenerative endplate edema involving the inferior and anterior aspect of the L1 endplate. No suspicious osseous lesion. Hemangioma within the L4 vertebral body. Bulky left paravertebral osteophyte formation of the lumbar spine. Conus medullaris terminates at the L1 level. Axial images through the disc spaces demonstrate the following: L1-L2: No significant posterior disc disease, spinal canal or neural foraminal stenosis. Mild bilateral facet hypertrophy. L2-L3: No significant posterior disc disease, spinal canal or neural foraminal stenosis. Mild bilateral facet hypertrophy. L3-L4: No significant posterior disc disease, spinal canal or neural foraminal stenosis. Mild to moderate bilateral facet hypertrophy. L4-L5: No significant posterior disc disease or spinal canal stenosis. Mild right neural foraminal narrowing. Patent left neural foramen. Moderate bilateral facet hypertrophy. L5-S1: Central posterior disc protrusion without significant spinal canal narrowing. Patent bilateral neural foramina. Moderate bilateral facet hypertrophy. No significant posterior disc disease, spinal canal or neural foraminal stenosis at other visualized levels. IMPRESSION: Somewhat limited evaluation given the absence of axial T2 sequences as the patient was unable to tolerate the full exam. No acute abnormality identified. Edema involving the anterior aspect of the inferior endplate of L1 which is favored to be degenerative in etiology. Vertebral body heights appear maintained. Multilevel degenerative changes of the lumbar spine without significant spinal canal narrowing. Small posterior disc protrusion at L5-S1. Additional degenerative changes are detailed above. [id number] Performing Organization Address City/State/Zipcode Phone Number [facility] [phone] [place] [address] * MRI Thoracic Spine Wo Contrast (05/08/2019 5:39 PM CDT) Specimen Narrative Performed At [facility] EXAMINATION: MRI THORACIC SPINE WO CONTRAST CLINICAL HISTORY: Mid-back T-spine paininitial exam COMPARISON:None TECHNIQUE: Multiplanar MRI of the lumbar spine without contrast FINDINGS: The vertebral bodies are normal in signal and morphology. No fracture, infection, or bony neoplasm. There is slight exaggeration of the usual thoracic kyphosis, which is likely degenerative in etiology. Otherwise, alignment is maintained without spondylolisthesis. There is severe epidural lipomatosis from approximately T3-T4 through T10-T11, and worse at approximately T5-T9/T10, where severe epidural lipomatosis essentially completely effaces normal CSF signal and is associated with severe dural compression. There is cord flattening without cord hyperintense signal. There are no epidural collections or intradural mass lesions. There is multilevel degenerative disc change without significant posterior disc disease. No foraminal stenosis. IMPRESSION: Severe dorsal epidural lipomatosis extending from approximately T3 T4-T10 T11. This results in complete CSF signal effacement and severe dural compression from approximately T5 through the T9-T10 level. There is associated cord flattening without cord hyperintensity. [facility]-[id number] Procedure Note Hm Interface, Radiology Results Incoming - 05/08/2019 7:04 PM CDT EXAMINATION: MRI THORACIC SPINE WO CONTRAST CLINICAL HISTORY: Mid-back T-spine pain initial exam COMPARISON: None TECHNIQUE: Multiplanar MRI of the lumbar spine without contrast FINDINGS: The vertebral bodies are normal in signal and morphology. No fracture, infection, or bony neoplasm. There is slight exaggeration of the usual thoracic kyphosis, which is likely degenerative in etiology. Otherwise, alignment is maintained without spondylolisthesis. There is severe epidural lipomatosis from approximately T3-T4 through T10-T11, and worse at approximately T5-T9/T10, where severe epidural lipomatosis essentially completely effaces normal CSF signal and is associated with severe dural compression. There is cord flattening without cord hyperintense signal. There are no epidural collections or intradural mass lesions. There is multilevel degenerative disc change without significant posterior disc disease. No foraminal stenosis. IMPRESSION: Severe dorsal epidural lipomatosis extending from approximately T3 T4-T10 T11. This results in complete CSF signal effacement and severe dural compression from approximately T5 through the T9-T10 level. There is associated cord flattening without cord hyperintensity. [facility]-[id number] Performing Organization Address City/State/Zipcode Phone Number [facility] [phone] [place] [address] * Estimated GFR (05/08/2019 6:17 AM CDT) Only the most recent of 6 results within the time period is included. Estimated GFR 52 (A) mL/min/1.73 m2 [place] Comment: [facility] rpretation G1 >=90 Normal or high G2 60-89Mildly decreased S8x37-53 Mildly to moderately decreased G2x54-81 Moderately to severely decreased G4 15-29Severely decreased G5 <15Kidney failure The eGFR was calculated using the Chronic Kidney Disease Epidemiology Collaboration (CKD-EPI) equation. Interpretation is based on recommendations of the National Kidney Foundation-Kidney Disease Outcomes Quality Initiative (NKF-KDOQI) published in 2014. Specimen Plasma specimen Performing Organization Address City/State/Zipcode Phone Number [facility] DEPARTMENT OF [address] [place] [address] PATHOLOGY AND GENOMIC MEDICINE [address] * Partial thromboplastin time, activated (05/08/2019 6:17 AM CDT) Only the most recent of 3 results within the time period is included. Pathologist [facility] [place] PTT 33.1 23.0 - 36.0 sec [facility] Comment: [facility] PTT therapeutic range for HOSPITAL unfractionated heparin is 61.0-112.0 seconds which corresponds to Anti-Xa 0.3-0.7 U/ml. Specimen Blood Performing Organization Address City/[facility]/[place] Phone Number [facility] DEPARTMENT OF [address] [place] [address] PATHOLOGY AND [facility] MEDICINE [address] * Prothrombin time with INR (05/08/2019 6:17 AM CDT) Only the most recent of 3 results within the time period is included. Pathologist [facility] [place] Prothrombin 17.5 (H) 11.5 - 14.5 sec [facility] INR 1.5 [place] Comment: [facility] The International Normalized HOSPITAL Ratio (INR) is a therapeutic monitoring tool for patients who are stable on oral anticoagulant therapy. An INR of 2.0-3.0 is suggested for deep vein thrombosis/pulmonary embolism. Specimen Blood Performing Organization Address City/[facility]/[place] Phone Number [facility] DEPARTMENT OF [address] [place] [address] PATHOLOGY AND GENOMIC MEDICINE [address] * CBC with platelet and differential (05/08/2019 6:17 AM CDT) Only the most recent of 4 results within the time period is included. WBC 7.75 4.50 - 11.00 k/uL [facility] RBC 3.85 (L) 4.40 - 6.00 m/uL [facility] HGB 10.9 (L) 14.0 - 18.0 g/dL [facility] HCT 36.2 (L) 41.0 - 51.0 % [facility] MCV 94.0 82.0 - 100.0 fL [facility] MCH 28.3 27.0 - 34.0 pg [facility] MCHC 30.1 (L) 31.0 - 37.0 g/dL [facility] RDW - SD 52.2 37.0 - 55.0 fL [facility] MPV 10.8 8.8 - 13.2 fL [facility] Platelet count 202 150 - 400 k/uL [facility] Nucleated RBC 0.00 /100 WBC [facility] Neutrophils 72.8 (H) 39.0 - 69.0 % [facility] Lymphocytes 14.3 (L) 25.0 - 45.0 % [facility] Monocytes 8.5 0.0 - 10.0 % [facility] Eosinophils 3.5 0.0 - 5.0 % [facility] Basophils 0.3 0.0 - 1.0 % [facility] Immature 0.6Comment: "Immature 0.0 - 1.0 % [facility] granulocytes granulocytes" (promyelocytes, [facility] myelocytes, metamyelocytes) HOSPITAL Specimen Blood Performing Organization Address [facility] [place] Phone Number [facility] [place] [address] PATHOLOGY AND [facility] MEDICINE [address] * Phosphorus level (05/08/2019 6:17 AM CDT) Only the most recent of 5 results within the time period is included. Phosphorus 2.3 (L) 2.4 - 4.5 mg/dL [facility] Specimen Plasma specimen Performing Organization Address [facility] [place] [place] Phone Number [facility] [place] [address] PATHOLOGY AND GENOMIC MEDICINE [address] * Magnesium level (05/08/2019 6:17 AM CDT) Only the most recent of 4 results within the time period is included. Magnesium 2.0 1.6 - 2.4 mg/dL [facility] Specimen Plasma specimen Performing Organization Address [facility] [place] [place] Phone Number [facility] [place] [address] PATHOLOGY AND GENOMIC MEDICINE [address] * Venous blood gas (05/08/2019 6:17 AM CDT) Only the most recent of 4 results within the time period is included. pH, venous 7.42 7.32 - 7.42 [facility] pCO2, venous 59 (H) 45 - 51 mmHg [facility] pO2, venous 105 (H) 25 - 40 mmHg [facility] Base excess, 11 (H) -2 - 2 meq/L [facility] O2 saturation, 98 (H) 40 - 70 % [facility] Bicarbonate, 37.1 (H) 21.0 - 28.0 mmol/L [facility] Specimen Blood Performing Organization Address City/[facility]/[place] Phone Number [facility] DEPARTMENT [place] [address] PATHOLOGY AND GENOMIC MEDICINE [address] * Ionized calcium (05/08/2019 6:17 AM CDT) Only the most recent of 3 results within the time period is included. pH 7.54 [facility] Ionized calcium 1.07 (L) 1.11 - 1.32 mmol/L [facility] Specimen Plasma specimen Performing Organization Address [facility] [place] [place] Phone Number [facility] [place] [address] PATHOLOGY AND GENOMIC MEDICINE [address] * Basic metabolic panel (05/08/2019 6:17 AM CDT) Only the most recent of 4 results within the time period is included. Sodium 139 135 - 148 mEq/L [facility] Potassium 3.2 (L) 3.5 - 5.0 mEq/L [facility] Chloride 94 (L) 98 - 112 mEq/L [facility] CO2 36 (H) 24 - 31 mEq/L [facility] Anion gap 9@ANIO 7 - 15 mEq/L [facility] BUN 24 (H) 8 - 23 mg/dL [facility] Creatinine 1.33 (H) 0.70 - 1.20 mg/dL [facility] Glucose 114 (H) 65 - 99 mg/dL [facility] Calcium 8.9 8.8 - 10.2 mg/dL [facility] Specimen Plasma specimen Performing Organization Address City/[facility] Phone Number [facility] [place] [address] PATHOLOGY AND GENOMIC MEDICINE [facility] [address] [place] [address] * Potassium level (05/07/2019 2:35 PM CDT) Potassium 3.9 3.5 - 5.0 mEq/L [facility] Specimen Plasma specimen Performing Organization Address [facility] Phone Number [facility] DEPARTMENT OF [address] [place] [address] PATHOLOGY AND GENOMIC MEDICINE [address] * XR Pelvis 3+ Vw (05/07/2019 12:43 PM CDT) Specimen Narrative Performed At EXAMINATION:XR PELVIS 3VW [facility] CLINICAL HISTORY:Pelvic fxknown or suspected TECHNIQUE:2 views of the pelvis COMPARISON:None. IMPRESSION: Neurostimulator device projecting over the right hip joint and iliac bone obscuring visualization. Within this limitation no acute fracture or dislocation is detected. A right common femoral approach central line tip projecting over the right hemipelvis. Surgical clips projecting over the pubic symphysis. [facility]-[id number] Procedure Note Interface, Radiology Results Incoming - 05/07/2019 12:48 PM CDT EXAMINATION: XR PELVIS 3 VW CLINICAL HISTORY: Pelvic fx known or suspected TECHNIQUE:2 views of the pelvis COMPARISON: None. IMPRESSION: Neurostimulator device projecting over the right hip joint and iliac bone obscuring visualization. Within this limitation no acute fracture or dislocation is detected. A right common femoral approach central line tip projecting over the right hemipelvis. Surgical clips projecting over the pubic symphysis. [facility]-[id number] Performing Organization Address [facility] Phone Number [facility] [address] [place] [address] * Echocardiogram complete w contrast and 3D if needed (05/07/2019 11:00 AM CDT) Specimen Narrative Performed At [facility] Echocardiography Report [id number] [facility] [address]Name:STEVE BENEDICT CPacarrie.ID:[id number] .Date: 05/07/2019 Refer.MD:RASHEEDA AHMADI MD Exam Time: 10:57:00 AM Study Type:Routine Echo Height:69inWeight:194lb BSA: 2.04 m2 DOBAge:1945,73Y Sex: MALEBP:130/61 Sonogrphr: Marilee Nicholson, [facility], RVSPat. Stat.:Inpatient Room:[address] Status:Final Echo Event ID:[id number] Order ID:[id number] Reason for Study:Syncope without cardiac evidence Procedures:2D Echo, Colorflow Doppler SUMMARY: There is mild concentric LV hypertrophy. LV EF is hyperdynamic. Estimated EF is >70%. No structural PV abnormalities noted. LV filling pressure is normal. Estimated PA systolic pressure is 30 mmHg, assuming a mean RAP of 5 mmHg. FINDINGS: LV: LV size is normal. There is mild concentric LV hypertrophy. LVEF is hyperdynamic. Overall wall motion is hyperdynamic. Septalmotion is paradoxical secondary to LBBB or conductionabnormality. Estimated EF is >70%. RV: RV size is normal. RV systolic function is normal. LA: LA volume is severely enlarged. RA: RA volume is normal. AO: Aortic root diameter is normal. JASPAL: No pericardial effusion. AV: No structural AV abnormalities noted. MV: No structural MV abnormalities noted. PV: No structural PV abnormalities noted. TV: No structural TV abnormalities noted. James: LV filling pressure is normal. Other:Estimated PA systolic pressure is 30 mmHg, assuming a mean RAPof 5 mmHg. MEASUREMENTS: 2D Parasternal [place] LVOT 2.2 cmLA Ds5 cm LVIDd5.1 cmIndex2.5 cm/m Ao An2.1 cm LVIDs2.7 cmAo Rtd 3.6 cm Index1.7 cm/m LV%fs 47.1 % LV Krkv296.2 g(122-174) IVSd 1.1 cmLVM Bakvt501.2 g/m2 LVPWd1.3 cmRWT0.5 LA Sng Plane LA Area 33.6 cm2(8.8-23.4) LA Vol 132.1 ml Index64.8 ml/m LA LngAx 7.1 cm DOPPLER LVOT Stroke Vol LVOT 2.2 cmLVOT CO6 l/min LVOT TVI15.9 cmLVOT CI2.9 l/m/m2 LVOT Tm242 xyvyZF21 bpm LVOT SV 60.6 ml Signed 05/07/2019 07:08 PM Ross Hodge M.D. Procedure Note Interface, Radiology Results In - 05/07/2019 7:08 PM CDT Echocardiography Report [id number] [place] [address] Pat.Name: STEVE BENEDICT Pat.ID: [id number] .Date: 05/07/2019 Refer.MD: RASHEEDA AHMADI MD Exam Time: 10:57:00 AM Study Type:Routine Echo Height: 69in Weight: 194lb BSA: 2.04 m2 Age: 10 1945,73Y Sex: MALE BP: 130/61 Sonogrphr: Marilee Nicholson RDCS, RVSPat. Stat.:Inpatient Room: [place] [address] Study Status:Final Echo Event ID:[id number] Order ID: [id number] Reason for Study:Syncope without cardiac evidence Procedures:2D Echo, Colorflow Doppler SUMMARY: There is mild concentric LV hypertrophy. LV EF is hyperdynamic. Estimated EF is >70%. No structural PV abnormalities noted. LV filling pressure is normal. Estimated PA systolic pressure is 30 mmHg, assuming a mean RAP of 5 mmHg. FINDINGS: LV: LV size is normal. There is mild concentric LV hypertrophy. LV EF is hyperdynamic. Overall wall motion is hyperdynamic. Septal motion is paradoxical secondary to LBBB or conduction abnormality. Estimated EF is >70%. RV: RV size is normal. RV systolic function is normal. LA: LA volume is severely enlarged. RA: RA volume is normal. AO: Aortic root diameter is normal. JASPAL: No pericardial effusion. AV: No structural AV abnormalities noted. MV: No structural MV abnormalities noted. PV: No structural PV abnormalities noted. TV: No structural TV abnormalities noted. James: LV filling pressure is normal. Other: Estimated PA systolic pressure is 30 mmHg, assuming a mean RAP of 5 mmHg. MEASUREMENTS: 2D Parasternal [place] LVOT 2.2 cm LA Ds 5 cm LVIDd 5.1 cm Index 2.5 cm/m Ao An 2.1 cm LVIDs 2.7 cm Ao Rtd 3.6 cm Index 1.7 cm/m LV%fs 47.1 % LV Mass 241.2 g (122-174) IVSd 1.1 cm LVM Index 118.2 g/m2 LVPWd 1.3 cm RWT 0.5 LA Sng Plane LA Area 33.6 cm2 (8.8-23.4) LA Vol 132.1 ml Index 64.8 ml/m LA LngAx 7.1 cm DOPPLER LVOT Stroke Vol LVOT 2.2 cm LVOT CO 6 l/min LVOT TVI 15.9 cm LVOT CI 2.9 l/m/m2 LVOT Tm 242 msec HR 99 bpm LVOT SV 60.6 ml Signed 05/07/2019 07:08 PM Ross Hodge M.D. Performing Organization Address City/[facility]/Zipcode Phone Number [facility]UPID [address] [place] [address] * Thyroid stimulating hormone (05/07/2019 4:15 AM CDT) TSH 2.16 0.27 - 4.20 uIU/mL [facility] Specimen Plasma specimen Performing Organization Address [facility]/[place] Phone Number [facility] DEPARTMENT OF [address] [place] [address] PATHOLOGY AND GENOMIC MEDICINE [address] * T4, free (05/07/2019 4:15 AM CDT) T4, free 1.2 0.9 - 1.7 ng/dL [facility] Specimen Plasma specimen Performing Organization Address [facility] [place] Phone Number [facility] [place] [address] PATHOLOGY AND GENOMIC MEDICINE [address] * US Renal (05/06/2019 1:55 PM CDT) Specimen Narrative Performed At EXAMINATION:US RENAL [facility] CLINICAL HISTORY:Renal failureacute (kidney injury) COMPARISON:None. FINDINGS: The right kidney cephsjov17.7 x 4.5 x 4.4 cm, parenchymal thickness 1.5 cm The left kidney otrrdmgy09.5 x 4.6 x 4.5 cm, parenchymal thickness 1.5 cm There is a 6 mm equivocal right renal cyst. The left kidney contains 2 simple appearing cyst measuring 4 cm and 2.8 cm. There is no hydronephrosis. The urinary bladder is decompressed by Macedo catheter. IMPRESSION: Benign left renal cyst. Questionable right renal cyst. No hydronephrosis. [facility]-[id number] Procedure Note Interface, Radiology Results Incoming - 05/06/2019 3:37 PM CDT EXAMINATION: US RENAL CLINICAL HISTORY: Renal failure acute (kidney injury) COMPARISON: None. FINDINGS: The right kidney measures 10.7 x 4.5 x 4.4 cm, parenchymal thickness 1.5 cm The left kidney measures 10.5 x 4.6 x 4.5 cm, parenchymal thickness 1.5 cm There is a 6 mm equivocal right renal cyst. The left kidney contains 2 simple appearing cyst measuring 4 cm and 2.8 cm. There is no hydronephrosis. The urinary bladder is decompressed by Macedo catheter. IMPRESSION: Benign left renal cyst. Questionable right renal cyst. No hydronephrosis. [facility]-[id number] Performing Organization Address City/State/Zipcode Phone Number [facility]AY[facility] [address] [place] [address] * Comprehensive metabolic panel (05/06/2019 5:00 AM CDT) Only the most recent of 2 results within the time period is included. Sodium 142 135 - 148 mEq/L [facility] Potassium SEE COMMENT 3.5 - 5.0 mEq/L [facility] Comment: [place] Footnote--------- HOSPITAL SPECIMEN HEMOLYZED.RECOLLECT REQUESTED FOR K+ AND AST. Chloride 95 (L) 98 - 112 mEq/L [facility] CO2 38 (H) 24 - 31 mEq/L [facility] Anion gap 9@ANIO 7 - 15 mEq/L [facility] BUN 87 (H) 8 - 23 mg/dL [facility] Creatinine 1.82 (H) 0.70 - 1.20 mg/dL [facility] Glucose 135 (H) 65 - 99 mg/dL [facility] Calcium 8.6 (L) 8.8 - 10.2 mg/dL [facility] Protein 5.9 (L) 6.3 - 8.3 g/dL [facility] Comment: [facility] 4.6-7.0 g/dL 1 week 4.4-7.6 g/dL 7 months-1year 5.1-7.3 g/dL 1-2 years5.6-7 .5 g/dL >3 years6.0-8 .0 g/dL 18-150 6.3-8.3 g/dL Albumin 3.1 (L) 3.5 - 5.0 g/dL [facility] A/G ratio 1.1 0.7 - 3.8 [facility] Alkaline 67 40 - 129 U/L [facility] phosphatase [facility] AST SEE COMMENTComment: 10 - 50 U/L [place] Footnote--------- [facility] ALT 20 5 - 50 U/L [facility] Total bilirubin 0.5 0.0 - 1.2 mg/dL [facility] Specimen Plasma specimen Performing Organization Address City/[facility]/[place] Phone Number [facility] [place] [address] PATHOLOGY AND GENOMIC MEDICINE [address] * Blood culture, aerobic & anaerobic (05/05/2019 9:20 PM CDT) Only the most recent of 2 results within the time period is included. Blood culture No growth after 5 days of [facility] isolate incubation. [facility] Comment: HOSPITAL Specimen Information Specimen Source: Blood Specimen Site: Forearm, left Specimen Blood - Forearm, left Performing Organization Address City/[facility]/[place] Phone Number [facility] [place] [address] PATHOLOGY AND [facility] MEDICINE [address] * Lactic acid level (05/05/2019 9:05 PM CDT) Lactic acid 1.4 0.5 - 2.2 mmol/L [facility] Specimen Blood Performing Organization Address City/[facility]/[place] Phone Number [facility] [place] [address] PATHOLOGY AND GENOMIC MEDICINE [address] * Ammonia level (05/05/2019 9:05 PM CDT) Ammonia 20 16 - 60 umol/L [facility] Specimen Blood Performing Organization Address City/[facility]/[place] Phone Number [facility] [place] [address] PATHOLOGY AND GENOMIC MEDICINE [address] * CT Chest Wo Contrast Abdomen Wo Contrast Pelvis Wo Contrast (05/05/2019 8:11 PM CDT) Specimen Narrative Performed At EXAMINATION:CT CHEST WO CONTRAST ABDOMEN WO CONTRAST PELVIS WO CONTRAST [facility] CLINICAL HISTORY:Sepsis, fallposs trauma TECHNIQUE:Multiple axial images of the chest, abdomen, and pelvis were obtained without intravenous contrast. The lack of intravenous contrast reduces the sensitivity of detecting solid organ disease. CT imaging was performed with iterative reconstruction technique and/or automated exposure control to reduce radiation dose. COMPARISON:None FINDINGS: CHEST: Lungs and airways: Secretions are present in the central airways. Motion artifact limits evaluation of fine detail in the lung parenchyma. Scattered linear atelectasis/scarring. Confluent centrilobular emphysema. Pleura: No pleural effusion or pneumothorax. Mediastinum and lymph nodes: No suspicious lymphadenopathy. Cardiovascular: Right coronary artery stents. Scattered vascular calcifications. Heart is mildly enlarged. Main pulmonary artery is dilated, measuring 3.6 cm. ABDOMEN: Liver: No suspicious hepatic masses. Gallbladder: Distended but otherwise unremarkable gallbladder. Spleen: Mild splenomegaly. Anatomic variant splenic lobulations. Pancreas: There is a single punctate calcification in the pancreatic head, nonspecific. Adrenal Glands: The adrenal glands are unremarkable. Kidneys: Innumerable renal cysts of varying attenuation, some indeterminate, measuring up to 4 cm. Abdominal Aorta: There are several focal ectatic regions within the abdominal aorta, which has a maximum diameter in the infrarenal aorta 2.8 cm. Scattered calcifications of the aorta and branch vessels. Right femoral approach venous catheter tip terminates in the right external iliac vein. Nodes: No enlarged retroperitoneal or mesenteric lymphadenopathy. Bowel: Greater than expected colonic stool burden, suggestive of constipation. Colonic diverticula without evidence of diverticulitis. No evidence of high-grade small bowel obstruction or acute bowel inflammation. The appendix is not visualized. Ascites/fluid collections: No ascites or fluid collections. PELVIS: The urinary bladder is moderately distended. There appear to be prostatic brachytherapy seeds in place. MUSCULOSKELETAL: A small hematoma surrounds the insertion point of the right groin approach venous catheter. Partially visualized intramuscular lipomatous lesion along the anterior right thigh. Intrathecal pump overlies the right lower anterior abdomen. Partially visualized cervical spine fusion hardware. Scattered degenerative osseous changes. There are acute fractures of posterior right 9-12 ribs, which are minimally displaced. There is an acute fracture of the right transverse process of T9 and possibly T10. There is fusion of thoracic vertebral bodies and the sacroiliac joints, suggestive of ankylosing spondylitis. There is focal stranding over the right posterior back. Moderate bilateral gynecomastia. IMPRESSION: 1.Acute fractures of the posterior right 9-12 ribs and right T9 transverse process, possibly right T10 transverse process. Overlying soft tissue contusion. 2.Osseous fusion of thoracic vertebral bodies and the sacroiliac joints, suggestive of ankylosing spondylitis. Given the rigid spine and evidence of acute trauma, consider dedicated spinal imaging. 3.Chronic and incidental findings as detailed above. [facility]-[id number] Procedure Note Hm Interface, Radiology Results Incoming - 05/05/2019 8:32 PM CDT EXAMINATION: CT CHEST WO CONTRAST ABDOMEN WO CONTRAST PELVIS WO CONTRAST CLINICAL HISTORY: Sepsis, fall poss trauma TECHNIQUE: Multiple axial images of the chest, abdomen, and pelvis were obtained without intravenous contrast. The lack of intravenous contrast reduces the sensitivity of detecting solid organ disease. CT imaging was performed with iterative reconstruction technique and/or automated exposure control to reduce radiation dose. COMPARISON: None FINDINGS: CHEST: Lungs and airways: Secretions are present in the central airways. Motion artifact limits evaluation of fine detail in the lung parenchyma. Scattered linear atelectasis/scarring. Confluent centrilobular emphysema. Pleura: No pleural effusion or pneumothorax. Mediastinum and lymph nodes: No suspicious lymphadenopathy. Cardiovascular: Right coronary artery stents. Scattered vascular calcifications. Heart is mildly enlarged. Main pulmonary artery is dilated, measuring 3.6 cm. ABDOMEN: Liver: No suspicious hepatic masses. Gallbladder: Distended but otherwise unremarkable gallbladder. Spleen: Mild splenomegaly. Anatomic variant splenic lobulations. Pancreas: There is a single punctate calcification in the pancreatic head, nonspecific. Adrenal Glands: The adrenal glands are unremarkable. Kidneys: Innumerable renal cysts of varying attenuation, some indeterminate, measuring up to 4 cm. Abdominal Aorta: There are several focal ectatic regions within the abdominal aorta, which has a maximum diameter in the infrarenal aorta 2.8 cm. Scattered calcifications of the aorta and branch vessels. Right femoral approach venous catheter tip terminates in the right external iliac vein. Nodes: No enlarged retroperitoneal or mesenteric lymphadenopathy. Bowel: Greater than expected colonic stool burden, suggestive of constipation. Colonic diverticula without evidence of diverticulitis. No evidence of high- grade small bowel obstruction or acute bowel inflammation. The appendix is not visualized. Ascites/fluid collections: No ascites or fluid collections. PELVIS: The urinary bladder is moderately distended. There appear to be prostatic brachytherapy seeds in place. MUSCULOSKELETAL: A small hematoma surrounds the insertion point of the right groin approach venous catheter. Partially visualized intramuscular lipomatous lesion along the anterior right thigh. Intrathecal pump overlies the right lower anterior abdomen. Partially visualized cervical spine fusion hardware. Scattered degenerative osseous changes. There are acute fractures of posterior right 9-12 ribs, which are minimally displaced. There is an acute fracture of the right transverse process of T9 and possibly T10. There is fusion of thoracic vertebral bodies and the sacroiliac joints, suggestive of ankylosing spondylitis. There is focal stranding over the right posterior back. Moderate bilateral gynecomastia. IMPRESSION: 1. Acute fractures of the posterior right 9-12 ribs and right T9 transverse process, possibly right T10 transverse process. Overlying soft tissue contusion. 2. Osseous fusion of thoracic vertebral bodies and the sacroiliac joints, suggestive of ankylosing spondylitis. Given the rigid spine and evidence of acute trauma, consider dedicated spinal imaging. 3. Chronic and incidental findings as detailed above. [facility]-[id number] Performing Organization Address City/[facility]/Zipcode Phone Number [facility] [address] [place] [address] * Urinalysis screen and microscopy, with reflex to culture (05/05/2019 7:22 PM CDT) Specimen site Clean catch [facility] Color, UA Straw [facility] Appearance, UA Clear [facility] Specific 1.013 1.001 - 1.035 [place] gravity, [facility] pH, UA 6.0 5.0 - 8.5 [facility] Protein, UA Negative Negative [facility] Glucose, UA Negative Negative [facility] Ketones, UA Negative Negative [facility] Bilirubin, UA Negative Negative [facility] Blood, UA Negative Negative [facility] Nitrite, UA Negative Negative [facility] Urobilinogen, <2.0 <2.0 [facility] Leukocyte Negative Negative [place] esterase, [facility] Epithelial <1 /HPF [place] cells, [facility] WBC, UA None seen 0 - 1 /HPF [facility] RBC, UA <1 0 - 5 /HPF [facility] Bacteria, UA None seen None seen [facility] Yeast, UA None seen [facility] Yeast with None seen [place] Hyaline casts, 12 /LPF [facility] Specimen Urine Performing Organization Address City/State/Zipcode Phone Number [facility] DEPARTMENT OF [address] [place] [address] PATHOLOGY AND GENOMIC MEDICINE [id number] [place] [address] * Hemoglobin & hematocrit (05/05/2019 7:22 PM CDT) HGB 13.5 (L) 14.0 - 18.0 g/dL [facility] HCT 43.2 41.0 - 51.0 % [facility] Specimen Blood Performing Organization Address City/State/Zipcode Phone Number [facility] [place] [address] PATHOLOGY AND GENOMIC MEDICINE [address] * Urine drugs of abuse screen (05/05/2019 7:22 PM CDT) Pathologist [facility] [place] Amphetamine Negative [facility] screen, urine [facility] Barbiturate Negative [facility] screen, urine [facility] Benzodiazepine Negative [facility] screen, urine [facility] Cocaine screen, Negative [facility] urine [facility] Methadone Negative [facility] metabolite [place] (EDDP), urine [facility] Opiates screen, Positive (A) [place] urine [facility] Oxycodone Negative [facility] screen, urine [facility] Phencyclidine Negative [facility] screen, urine [facility] Tricyclic Negative [facility] screen, urine [facility] Cannabinoid Negative [facility] screen, urine Comment: [facility] Drug screen minimum HOSPITAL concentration of detectability Amphetamines 1000 ng/mL Barbiturates 200 ng/mL Benzodiazepines 300 ng/mL Cocaine 300 ng/mL Methadone 300 ng/mL Opiates 300 ng/mL Oxycodone 300 ng/mL Phencyclidine 25 ng/mL Cannabinoids 50 ng/mL Tricyclics 1000 ng/mL Results are from screening tests and should only be used for medical evaluation. Drug testing for legal purposes requires definitive (or confirmatory) testing methods, which are available upon request. Contact the laboratory if definitive testing is required. Specimen Urine Performing Organization Address [facility]/[place] Phone Number [facility] [place] [address] PATHOLOGY AND GENOMIC MEDICINE [address] * Urine culture (05/05/2019 7:22 PM CDT) [facility] Urine culture SEE COMMENTComment: [facility] Bacteriuria screen negative. [facility] Specimen Performing Organization Address [facility]/Zipcode Phone Number [facility] [place] [address] PATHOLOGY AND GENOMIC MEDICINE [address] * XR Chest 1 Vw Portable (05/05/2019 7:00 PM CDT) Specimen Narrative Performed At EXAMINATION:XR CHEST 1 VW PORTABLE [facility] CLINICAL HISTORY: SOB COMPARISON:None IMPRESSION: Heart size and pulmonary vasculature are normal. There is linear atelectasis in the left lower lung zone.No focal infiltrate, effusion or pneumothorax seen. There are spondylotic changes in the spine. There is hardware in the cervical spine. [facility]-[id number] Procedure Note Interface, Radiology Results Incoming - 05/05/2019 7:09 PM CDT EXAMINATION: XR CHEST 1 VW PORTABLE CLINICAL HISTORY: SOB COMPARISON: None IMPRESSION: Heart size and pulmonary vasculature are normal. There is linear atelectasis in the left lower lung zone. No focal infiltrate, effusion or pneumothorax seen. There are spondylotic changes in the spine. There is hardware in the cervical spine. [facility]-[id number] Performing Organization Address City/State/Zipcode Phone Number [facility] [address] [place] [address] * CT Head Wo Contrast (05/05/2019 6:21 PM CDT) Specimen Narrative Performed At EXAMINATION:CT HEAD WO CONTRAST [facility] CLINICAL HISTORY:fall COMPARISON:None. TECHNIQUE: Noncontrast head CT performed using radiation dose reduction techniques.Technical factors are evaluated and adjusted to ensure appropriate moderation of exposure.Automated dose management technology is applied to adjust radiation exposure while achieving a diagnostic quality image. FINDINGS: No evidence of acute intracranial hemorrhage, mass, mass effect, midline shift, or acute infarct. Ventricles and sulci are normal in appearance for age.Minimal if any chronic microvascular ischemic changes within the supratentorial white matter. Basal cisterns are clear. Calvarium is intact. Arteriosclerosis of the cavernous internal carotid arteries. Status post bilateral lens extractions. Opacification of a posterior left ethmoid air cell. Small left mastoid fluid. IMPRESSION: 1. No CT evidence of acute intracranial abnormality. [id number] Procedure Note Interface, Radiology Results Incoming - 05/05/2019 6:29 PM CDT EXAMINATION: CT HEAD WO CONTRAST CLINICAL HISTORY: fall COMPARISON: None. TECHNIQUE: Noncontrast head CT performed using radiation dose reduction techniques. Technical factors are evaluated and adjusted to ensure appropriate moderation of exposure. Automated dose management technology is applied to adjust radiation exposure while achieving a diagnostic quality image. FINDINGS: No evidence of acute intracranial hemorrhage, mass, mass effect, midline shift, or acute infarct. Ventricles and sulci are normal in appearance for age. Minimal if any chronic microvascular ischemic changes within the supratentorial white matter. Basal cisterns are clear. Calvarium is intact. Arteriosclerosis of the cavernous internal carotid arteries. Status post bilateral lens extractions. Opacification of a posterior left ethmoid air cell. Small left mastoid fluid. IMPRESSION: 1. No CT evidence of acute intracranial abnormality. [id number] Performing Organization Address City/[facility]/Zipcode Phone Number [facility] [address] [place] [phone] * Type and screen (05/05/2019 3:33 PM CDT) ABO grouping O [facility] Rh type POS [facility] Antibody screen NEG VIENNA (gel) [facility] Specimen Blood Performing Organization Address City/[facility]/Zipcode Phone Number [facility] DEPARTMENT OF [address] [place] [phone] PATHOLOGY AND GENOMIC MEDICINE [address] * ECG 12 lead (05/05/2019 3:25 PM CDT) Ventricular 88 [facility] rate Atrial rate 340 [facility] QRSD interval 104 [facility] QT interval 368 [facility] QTC interval 445 [facility] MUSE QRS axis 1 -23 [facility] MUSE T wave axis 39 [facility] EKG impression Atrial fibrillation-Abnormal [facility] MUSE ECG-- Specimen Narrative Performed At Performing Organization Address [facility]/[place]ust[place] Phone Number [facility] MUSE [address] [place] [phone] * ECG ED Preliminary Interpretation - Not an Order (05/05/2019 3:19 PM CDT) Narrative Performed At Eunice Reyes MD 05/05/20199:37 PM ECG ED Preliminary Interpretation - Not an Order Performed by: Eunice Reyes MD Authorized by: Eunice Reyes MD ECG reviewed by ED Physician in the absence of a roll up helper: yes Interpretation: Interpretation: abnormal Rate: ECG rate:88 ECG rate assessment: normal Rhythm: Rhythm: atrial fibrillation Ectopy: Ectopy: none QRS: QRS axis:Normal QRS intervals:Normal Conduction: Conduction: normal ST segments: ST segments:Normal T waves: T waves: normal * CRITICAL CARE (05/05/2019 3:19 PM CDT) Narrative Performed At Eunice Reyes MD 05/05/20199:37 PM Critical Care Performed by: Eunice Reyes MD Authorized by: Eunice Reyes MD Critical care provider statement: Critical care time (minutes):92 Critical care time was exclusive of:Separately billable procedures and treating other patients and teaching time Critical care was necessary to treat or prevent imminent or life-threatening deterioration of the following conditions: encephalopathy and confusion. Critical care was time spent personally by me on the following activities:Blood draw for specimens, ordering and performing treatments and interventions, ordering and review of laboratory studies, ordering and review of radiographic studies, pulse oximetry, re-evaluation of patient's condition, review of old charts, obtaining history from patient or surrogate, interpretation of cardiac output measurements, examination of patient, evaluation of patient's response to treatment, discussions with consultants and development of treatment plan with patient or surrogate Hal 'yes' if you are taking over critical care for this patient from another provider.: no Comments: Right elbow skin tear that has been profusely bleeding, requiring manual holding together of skin tear for 15 minutes to stop the bleeding. * Central Line (05/05/2019 3:19 PM CDT) Narrative Performed At Eunice Reyes MD 05/05/20199:37 PM Central Line Performed by: Eunice Reyes MD Authorized by: Eunice Reyes MD Consent: Consent obtained:Verbal Consent given by:Spouse Risks discussed:Arterial puncture, bleeding, infection, incorrect placement, nerve damage and pneumothorax Alternatives discussed:Alternative treatment [place] protocol: Procedure explained and questions answered to patient or proxy's satisfaction: yes Relevant documents present and verified: yes Test results available and properly labeled: yes Imaging studies available: yes Required blood products, implants, devices, and special equipment available: yes Patient identity confirmed:Arm band and hospital-assigned identification number Pre-procedure details: Hand hygiene: Hand hygiene performed prior to insertion Sterile barrier technique: All elements of maximal sterile technique followed Skin preparation:Alcohol and Betadine Skin preparation agent: Skin preparation agent completely dried prior to procedure Anesthesia (see MAR for exact dosages): Anesthesia method:Local infiltration Local anesthetic:Lidocaine 1% w/o epi Procedure details: Catheter type:Single lumen Catheter size:7.5 Fr Catheter length (cm):15 Catheter site: femoral vein Catheter Site Laterality:Right Patient position:Flat Landmarks identified: yes Number of attempts:1 Successful placement: yes Post-procedure details: Post-procedure:Dressing applied and line sutured Assessment:Blood return through all ports Patient tolerance of procedure:Tolerated well, no immediate complications after 05/25/2018 Insurance Type Payer Benefit Subscriber ID Effective Phone Address Plan / Dates Group PPO HUMANA MEDICARE HUMANA xxxxxxxxx [id number] MEDICARE resent PPO/PFFS/E [facility] Advance Directives Patient has advance care planning documents on file. For more information, marcella howell contact: Juan Pablo Colbert [address] [place] [address]
--- OUTSIDE RECORDS SUMMARY | 2019-05-26 14:16 | XMS REPORT | Summary of Care ---
Author Author [facility] Urology [facility] Organization [facility] Urology [facility] Address Unknown Phone Unavailable Encounter JOSSELIN White(FIN) [id number] Date(s): 05/18/19 - 05/18/19 [facility] Urology [address] [phone]- [phone] Discharge Disposition: Home or Self Care Referring Physician: Christopher Summers MD Vital Signs [...] Reactions, Alerts No Known Medication Allergies Medications Levaquin 500 mg oral tablet 500 mg=1 tab, PO, Q24H, X 7 day, # 7 tab, 0 Refill(s), Pharmacy: [facility] [id number] Start Date: 05/18/19 Stop Date: 05/25/19 Status: Ordered Results Most recent to 1 oldest [Reference Range]: POC UA Bili Negative [Negative] *NA* (05/18/19 12:35 PM) POC UA Bld Trace [Negative] *NA* (05/18/19 12:35 PM) POC UA Color Yellow [Yellow] *NA* (05/18/19 12:35 PM) POC UA Glu [Negative Negative mg/dL mg/dL] *NA* (05/18/19 12:35 PM) POC UA Ket [Negative Negative mg/dL mg/dL] *NA* (05/18/19 12:35 PM) POC UA LeukEst Small [Negative] *ABN* (05/18/19 12:35 PM) POC UA Nit Positive [Negative] *ABN* (05/18/19 12:35 PM) POC UA pH [5.0-8.0] 6.5 (05/18/19 12:35 PM) POC UA Prot Negative mg/dL [Negative mg/dL] *NA* (05/18/19 12:35 PM) POC UA SG [<=1.030] 1.015 (05/18/19 12:35 PM) POC UA Turbidity Clear [Clear] *NA* (05/18/19 12:35 PM) POC UA Uro [0.1-1.0 0.2 EU/dL EU/dL] (05/18/19 12:35 PM) Immunizations No data available for this section [...] 2011; 1 entered on: 04/19/19 1Quit smoking 2011 Assessment and Plan No data available for this section
--- OUTSIDE RECORDS SUMMARY | 2019-05-26 14:16 | XMS REPORT | Summary of Care ---
Author Author [facility] Urology [facility] Organization [facility] Urology [facility] Address Unknown Phone Unavailable Encounter JOSSELIN White(FIN) [id number] Date(s): 05/04/19 - 05/04/[address] [facility] [address] [address]- [phone] Referring Physician: Christopher Summers MD Vital Signs [...] fusion done on 09/11/[address] Nilo Mas Dougal Social History Social History Type Response Smoking [...]
--- OUTSIDE RECORDS SUMMARY | 2019-05-26 14:16 | XMS REPORT | Summary of Care ---
Author Author [facility] Organization [facility] Address Unknown Phone Unavailable Encounter JOSSELIN White(FIN) [id number] Date(s): 11/04/18 - 11/05/18 [facility] [address] [address]- [phone] Vital Signs No data available for this [...] Reactions, Alerts No Known Medication Allergies Medications Monurol 3 g oral powder =1 Pack, PO, ONCE, # 3 gm, 0 Refill(s), Pharmacy: [facility] [id number] Start Date: 12/03/18 Status: Ordered Myrbetriq 50 mg oral tablet, extended release See Instructions, TAKE 1 TABLET BY MOUTH EVERY DAY, # 90 tab, 0 Refill(s), Pharm acy: [facility] [id number], please have patient call for appt prior to next refill Start Date: 11/05/18 Status: Ordered Results No data available for [...]
--- OUTSIDE RECORDS SUMMARY | 2019-05-26 14:16 | XMS REPORT | Summary of Care ---
Author Author [facility] Organization [facility] Address Unknown Phone Unavailable Encounter JOSSELIN White(FIN) [id number] Date(s): 05/04/19 - 05/04/19 [facility] [address] [place] [address]- Attending Physician: Kelechi Sibley MD Referring Physician: [...]
--- OUTSIDE RECORDS SUMMARY | 2019-05-26 14:16 | XMS REPORT | Continuity of Care Document ---
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 11/20/2017 [facility] M54.9 DORSALGIA, UNSPECIFIED G95.9 DISE Active 06/12/2016 [facility] 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, UNSPECIFIE Active 04/04/2016 [facility] DX: M54.4=LUMBAGO WITH SCIATICA, UNSPECI Active 03/26/2016 [facility] R53.1 - WEAKNESS Active 03/18/2016 [facility] Spinal stenosis, lumbar region without neurogenic claudication 03/12/2018 [facility] Spinal stenosis, cervical region 03/12/2018 [facility] Spinal stenosis, cervicothoracic region 03/12/2018 [facility] Afib Res[facility] [place] [place] Arthritis Resolved Problem 05/26/2019 [facility], [facility] [place] Arthropathy Resolved Problem 05/26/2019 [facility], [facility] [place] Atrial fibrillation and flutter Resolved Problem 05/26/2019 [facility], [facility] [place] Backache Resolved Problem 05/26/2019 [facility], [facility] [place] Benign prostatic hyperplasia with lower urinary tract symptoms Resolved Problem 05/26/2019 [facility], [facility] [place] Bronchitis Resolved Problem 05/26/2019 [facility], [facility] [place] Cataract Resolved Problem 05/26/2019 [facility], [facility] [place] Chronic kidney disease (Confirmed) Resolved Problem 05/26/2019 [facility], [facility] [place] COPD Resolved Problem 05/26/2019 [facility], [facility] [place] Diabetes mellitus type 1 Resolved Problem 05/26/2019 [facility], [facility] [place] Diabetes Resolved Problem 05/26/2019 [facility], [facility] [place] Glaucoma Resolved Problem 05/26/2019 [facility], [facility] [place] Gout Resolved Problem 05/26/2019 [facility], [facility] [place] Hypertension Resolved Problem 05/26/2019 [facility], [facility] [place] Impotence, organic Resolved Problem 05/26/2019 [facility], [facility] [place] Urinary frequency Resolved Problem 05/26/2019 [facility], [facility] [place] Mumps Resolved Problem 05/26/2019 [facility], [facility] [place] Neuropathy Resolved Problem 05/26/2019 [facility], [facility] [place] Nocturia Resolved Problem 05/26/2019 [facility], [facility] [place] Obesity Active Problem 05/26/2019 [facility], [facility] [place] Peripheral vascular disease Resolved Problem 05/26/2019 [facility], [facility] [place] Seborrheic dermatitis Resolved Problem 05/26/2019 [facility], [facility] [place] Sleep apnea Resolved Problem 05/26/2019 [facility], [facility] [place] Urgency of urination Resolved Problem 05/26/2019 [facility], [facility] [place] Other specified urinary incontinence Resolved Problem 05/26/2019 [facility], [facility] [place] UTI (Confirmed) Resolved Problem 05/26/2019 [facility], [facility] [place] Vertigo Resolved Problem 05/26/2019 [facility], [facility] [place] CHF Active Problem 05/04/2019 [facility] COPD exacerbation Active Problem 05/04/2019 [facility] Chronic renal insufficiency Active Problem 05/04/2019 [facility] Cirrhosis Active Problem 05/04/2019 [facility] Hemoptysis Active Problem 05/04/2019 [facility] Pedal edema Active Problem 05/04/2019 [facility] Pneumonia Active Problem 05/04/2019 [facility] Cellulitis of both lower extremities Active Problem 05/04/2019 [facility] Hypokalemia Active Problem 05/04/2019 [facility] DORSALGIA, UNSPECIFIED Active [facility] DISEASE OF SPINAL CORD, UNSPECIFIED Active [facility] Medications Medication Details Route Status Patient Instructions Ordering Provider Order Date Source Levofloxacin 500 MG Oral Tablet [Levaquin] 500 mg=1 tab, PO, Q24H, X 7 day, # 7 tab, 0 Refill(s), [facility] [id number] [facility] 05/18/[facility] Bumetanide 1 Mg Tablet Twice A Day Active [place] 05/04/2019 [facility] Lidocaine Patch 1 Ea Patch Q24h Active [place] 05/04/2019 [facility] Metolazone 5 Mg Tablet Daily Active [place] 05/04/2019 [facility] Tamsulosin Hcl (Flomax*) 0.4 Mg Cap Bedtime Active [place] 05/04/2019 [facility] Bumetanide 2 Mg Tablet, 2 Mg Oral Twice A Day Active 05/04/2019 [facility] Carisoprodol (Soma) 350 Mg Tablet, 350 Mg Oral Daily as needed for Pain Active 04/23/2019 [facility] Cholecalciferol (Vitamin D3) (Vitamin D3) 2,000 Unit Capsule, 6000 Units Oral Bedtime Active 04/23/2019 [facility] Cosentyx , 150 Mg Active 04/23/2019 [facility] Folic Acid 1 Mg Tablet, 400 Mcg Oral Twice A Day Active 04/23/2019 [facility] Guaifenesin (Mucus Relief) 400 Mg Tablet, 400 Mg Oral Twice A Day Active 04/23/2019 [facility] Hydromorphone Hcl 2 Mg Tablet, 8 Mg Oral As Needed as needed for Prn Active 04/23/2019 [facility] Metolazone 5 Mg Tablet, 5 Mg Oral Active 04/23/2019 [facility] Pantoprazole Sodium (Protonix) 40 Mg Tablet.dr, 40 Mg Oral Bedtime Active 04/23/2019 [facility] Sodium Chloride For Inhalation (Hyper-Lamine) 4 Ml Vial.neb, 7 % Inhalation Daily as needed for Nasal Congestion Active 04/23/2019 [facility] Spironolact/Hydrochlorothiazid (Aldactazide 50-50 Tablet) 1 Each Tablet, 1 Tab Oral Daily Active 04/23/2019 [facility] Vitamin B12 , 06146 Mcg Oral Use As Directed Active 04/23/2019 [facility] allopurinol 300 mg oral tablet 300 mg=1 tab, PO, Daily, # 90 tab, 1 Refill(s) Active 04/19/2019 [facility] methenamine hippurate 1 gm, PO, Daily, 0 Refill(s) Active 04/19/2019 [facility] Dulcolax Laxative =1 supp, MA, Daily, PRN constipation, # 5 supp, 0 Refill(s) Active 04/19/2019 [facility] Colchicine 0.6 mg, PO, Daily, 0 Refill(s) Active 04/19/2019 [facility] Sucralfate (Carafate) 1 Gm Tablet Before Meals Active [place] 02/15/2019 [facility] Clindamycin Hcl 300 Mg Capsule, 300 Mg Oral Three Times A Day Active 02/15/2019 [facility] Bumex Twice A Day Active [place] 01/09/2019 [facility] Potassium Chloride (K-Dur) 20 Meq Tab.er.prt, 20 Meq Oral Every 12 Hours Active 01/09/2019 [facility] Prednisone 10 Mg Tab, 30 Mg Oral Daily Active 12/30/2018 [facility] Prednisone 20 Mg Tab, 20 Mg Oral Daily Active 12/30/2018 [facility] Prednisone 10 Mg Tab, 10 Mg Oral Daily Active 12/30/2018 [facility] Albuterol Sulfate (Proair Hfa Inhaler*) 8.5 Gm Inh, 3 Inh Active 12/11/2018 [facility] Alclometasone Dipropionate 15 Gm Cream..g., 1 Applic Topically Daily Active 12/11/2018 [facility] Albuterol Sulfate (Proair Hfa Inhaler*) 8.5 Gm Inh, 2 Inh Inhalation Daily Active 12/07/2018 [facility] Clobetasol Propionate 1 Ea/15 Gm Cr, 1 Applic Topically Daily Active 12/07/2018 [facility] Mirabegron (Myrbetriq) 50 Mg Tab.er.24h, 50 Mg Oral Every Morning Active 12/07/2018 [facility] Rapatha Injection , 140 Mg Intramusc Use As Directed Active 12/07/2018 [facility] Spironolactone (Aldactone) 50 Mg Tablet, 50 Mg Oral As Needed Active 12/07/2018 [facility] Fosfomycin 33.3 MG/ML Oral Suspension [Monurol] =1 Pack, PO, ONCE, # 3 gm, 0 Refill(s), [facility]acy: [facility] [id number] Active 12/03/2018 [facility] 24 HR mirabegron 50 MG Extended Release Tablet [Myrbetriq] See Instructions, TAKE 1 TABLET BY MOUTH EVERY DAY, # 90 tab, 0 Refill(s), Pharmacy: [facility] [id number], please have patient call for appt prior to next refill Active 11/05/2018 [facility] Folic Acid 1 Mg Tablet, 1 Mg Oral Twice A Day Active 11/05/2018 [facility] Warfarin Sodium 3 Mg Tablet, 3 Mg Oral Daily Active 11/05/2018 [facility] Azithromycin (Zithromax) 500 Mg Tablet, 500 Mg Oral Daily Active [place] 09/16/2018 [facility] Sulfamethoxazole/Trimethoprim (Bactrim Ds Tablet) 1 Each Tablet, 1 Each Oral Twice A Day Active [place] 09/16/2018 [facility] Albuterol Sulf (Proventil 0.083% Neb) 3 Ml Nebu, 3 Ml Inhalation Every 12 Hours Active 09/13/2018 [facility] Albuterol Sulfate (Proair Hfa Inhaler*) 8.5 Gm Inh, 1 Inh Inhalation Three Times A Day Active 09/13/2018 [facility] Albuterol Sulfate (Proair Hfa Inhaler*) 8.5 Gm Inh, Active 09/13/2018 [facility] Cyanocobalamin (Vitamin B-12) (Vitamin B-12) 2,000 Mcg Tablet.er, 2000 Mcg Weekly Active 09/13/2018 [facility] Duloxetine Hcl (Cymbalta) 30 Mg Capsule.dr, 60 Mg Oral Bedtime Active 09/13/2018 [facility] Fe Fumarate/Vit C/B12-If/Fa (Ferocon Capsule) 1 Each Capsule, 1 Cap Oral Daily Active 09/13/2018 [facility] Formoterol Fumarate (Perforomist) 20 Mcg/2 Ml Vial.neb, 20 Mcg Inhalation Daily Active 09/13/2018 [facility] Liraglutide (Victoza 3-Asad) 0.6 Mg/0.1 Ml Pen.injctr, 1.8 Mg Injection Every Morning Active 09/13/2018 [facility] Duke-3/Dha/Epa/Fish Oil (Fish Oil Duke-3 Softgel) 1 Each Capsule., 1 Tab Oral Twice A Day Active 09/13/2018 [facility] Repaglinide (Prandin) 1 Mg Tab, 0.5 Tab Oral As Needed Active 09/13/2018 [facility] Tamsulosin Hcl 0.4 Mg Cap.er.24h, 0.8 Mg Oral Every 12 Hours Active 09/13/2018 [facility] Testoterone , 1 Ml Active 09/13/2018 [facility] Metoprolol Tartrate (Lopressor) 25 Mg Tab Every 12 Hours Active [place] 06/11/2017 [facility] Azithromycin (Z-Asad) 250 Mg Tablet, 500 Mg Oral Daily Active [facility] 06/11/2017 [facility] Docusate Sodium (Colace) 100 Mg Capsule, 100 Mg Oral Three Times A Day Active [facility] 06/11/2017 [facility] Furosemide 40 Mg Tablet, 80 Mg Oral Bid@06,18 Active [facility] 06/11/2017 [facility] Metoprolol Tartrate 25 Mg Tablet, 12.5 Mg Oral Twice A Day Active 06/11/2017 [facility] Polyethylene Glycol 3350 (Miralax) 17 Gm Powd.pack, 17 Gm Oral Twice A Day Active [facility] 06/11/2017 [facility] Prednisone 20 Mg Tab, 40 Mg Oral Daily Active [facility] 06/11/2017 [facility] Warfarin Sodium (Coumadin) 5 Mg Tablet, 5 Mg Oral Daily At 1700 Active [facility] 06/11/2017 [facility] Warfarin Sodium (Coumadin) 5 Mg Tablet, 3 Mg Oral Today At 5:00PM Active 06/11/2017 [facility] Furosemide (Lasix) 40 Mg Tablet, 2 Mg Oral Twice A Day Active 06/04/2017 [facility] Furosemide (Lasix) 40 Mg Tablet, 80 Mg Oral Twice A Day Active 06/04/2017 [facility] Ibuprofen 400 Mg Tablet, 600 Mg Oral Every 6 Hours as needed for Pain Active 06/04/2017 [facility] Mucas , 400 Mcg Oral Twice A Day Active 06/04/2017 [facility] Servent Disk , 50 Mcg Inhalation Twice A Day Active 06/04/2017 [facility] Warfarin Sodium (Coumadin) 5 Mg Tablet, 3 Mg Oral Today At 5:00PM Active 06/04/2017 [facility] Warfarin Sodium (Coumadin) 2 Mg Tablet, 2 Mg Oral Daily Active 06/04/2017 [facility] Warfarin Sodium (Coumadin) 2.5 Mg Tablet, 2.5 Mg Oral Daily Active 06/04/2017 [facility] Warfarin Sodium (Coumadin) 5 Mg Tablet, 5 Mg Oral Today At 5:00PM Active 06/04/2017 [facility] Aspirin 325 Mg Tablet, 81 Mg Oral Daily Active 05/07/2017 [facility] Bupivacaine Hcl (Marcaine) 2.5 Mg/1 Ml Vial, 1.143 Mg Daily Active 05/07/2017 [facility] Carisoprodol 350 Mg Tablet, 350 Mg Oral as needed Active 05/07/2017 [facility] Fenofibric Acid (Choline) (Trilipix) 135 Mg Capsule., 135 Mg Oral Daily Active 05/07/2017 [facility] Hydrocodone Bit/Acetaminophen (Hydrocodone-Apap 10-325 Mg Tab) 1 Each Tablet, 1 Each Oral as needed Active 05/07/2017 [facility] Hydrocodone Bit/Acetaminophen (Hydrocodon-Acetaminophn 10-325) 1 Each Tablet, 10 Mg Oral As Needed Active 05/07/2017 [facility] Latanoprost 2.5 Ml Drops, 2.5 Ml Ophthalmic Daily Active 05/07/2017 [facility] Linagliptin (Tradjenta) 5 Mg Tablet, 5 Mg Oral Daily Active 05/07/2017 [facility] Morphine Pump , 12.7 Mg Daily Active 05/07/2017 [facility] Multivitamin (Multivitamins) 1 Each Tab.chew, Oral Daily Active 05/07/2017 [facility] Omeprazole 40 Mg Capsule., 40 Mg Oral Daily Active 05/07/2017 [facility] Polyethylene Glycol 3350 (Clearlax) 17 Gm Powd.pack, As Needed Active 05/07/2017 [facility] Testosterone (Testopel) 75 Mg Pellet.ea., 75 Mg Active 05/07/2017 [facility] Torsemide 20 Mg Tablet, 20 Mg Oral Twice A Day Active 05/07/2017 [facility] Zolpidem Tartrate (Ambien) 10 Mg Tablet, 10 Mg Oral Bedtime Active 05/07/2017 [facility] Axiron , 30 Mg Daily Active 09/01/2013 [facility] Caltrate +D , Oral Twice A Day Active 09/01/2013 [facility] Furosemide 40 Mg Tablet, 40 Mg Oral Daily Active 09/01/2013 [facility] Marcaine , Daily Active 09/01/2013 [facility] Morphine Pump , Daily Active 09/01/2013 [facility] Zolpidem Tartrate (Ambien Cr) 12.5 Mg Tab.mphase, 12.5 Mg Oral Daily Active 09/01/2013 [facility] Aclometasone 0.05% 1 Each Daily Active [facility] Albuterol Sulfate 0.63 Mg/3 Ml Vial.neb Twice A Day Active [facility] Albuterol Sulfate (Proair Hfa Inhaler*) 8.5 Gm Inh Daily Active PATIENT TAKES 3-5 PUFFS INHALATION [facility] Alprazolam 0.5 Mg Tab.rapdis As Needed Active [facility] Aspirin (Aspir 81) 81 Mg Tablet.dr Daily Active [facility] Baclofen 10 Mg Tablet Three Times A Day Active [facility] Budesonide 0.5 Mg/2 Ml Ampul.neb Twice A Day Active [facility] Carisoprodol (Soma) 350 Mg Tablet Daily as needed for Pain Active [facility] Cholecalciferol (Vitamin D3) (Vitamin D3) 2,000 Unit Capsule Bedtime Active [facility] Clobetasol Propionate 1 Ea/15 Gm Cr Daily Active [facility] Clopidogrel Bisulfate (Clopidogrel) 75 Mg Tablet Daily Active [facility] Cosentyx Qmonth Active [facility] Dilaudid Pain Pump Use As Directed Active DILAUDID 6.225MG AND 0.9773MG MARCAINE DAILY DELIVERED BY PAIN PUMP [facility] Fe Fumarate/Vit C/B12-If/Fa (Ferocon Capsule) 1 Each Capsule Daily Active [facility] Folic Acid 1 Mg Tablet Twice A Day Active [facility] Guaifenesin (Mucus Relief) 400 Mg Tablet Twice A Day Active [facility] Hydromorphone Hcl 2 Mg Tablet As Needed as needed for Prn Active [facility] Latanoprost 2.5 Ml Drops Bedtime Active [facility] Levothyroxine Sodium 50 Mcg Tablet Daily Active [facility] Liothyronine Sodium 5 Mcg Tablet Every Morning Active [facility] Mirabegron (Myrbetriq) 50 Mg Tab.er.24h Daily Active [facility] Pantoprazole Sodium (Protonix) 40 Mg Tablet. Bedtime Active [facility] Pramipexole Di-Hcl (Pramipexole Dihydrochloride) 0.25 Mg Tablet Bedtime Active [facility] Psyllium Husk (Wal-Mucil) 0.52 Gm Capsule Daily Active [facility] Rapatha Injection Use As Directed Active PATIENT TAKES EVERY 2 WEEKS [facility] Rivaroxaban (Xarelto) 10 Mg Tablet Bedtime Active [facility] Ropinirole Hcl 0.25 Mg Tablet Bedtime Active [facility] Sertraline Hcl 50 Mg Tablet Bedtime Active [facility] Sodium Chloride For Inhalation (Hyper-Lamine) 4 Ml Vial.neb Daily as needed for Nasal Congestion Active [facility] Spironolact/Hydrochlorothiazid (Aldactazide 50-50 Tablet) 1 Each Tablet Daily Active [facility] Testosterone Cypionate 200 Mg/1 Ml Vial Active every 2 weeks [facility] Vitamin B12 Use As Directed Active ONCE A WEEK [facility] Aclovate Daily Active [facility] Alprazolam 0.5 Mg Tablet As Needed Active [facility] Bumetanide 2 Mg Tablet Twice A Day Active [facility] Cosentyx 150 Mg .monthly Active [facility] Hydromorphone/Bupiv/0.9NACL/Pf (Hydromor-Bupiva 10 Mcg-0.0625%) 100 Ml Pump.resvr Daily Active [facility] Metolazone 5 Mg Tablet Active TAKE 30 MINUTES PRIOR TO BUMEX DOSE [facility] Rivaroxaban (Xarelto) 15 Mg Tablet Daily Active [facility] Alcometasone Daily Active [facility] Allopurinol 300 Mg Tablet Bedtime Active [facility] Potassium Chloride 20 Meq Tab.er.prt Twice A Day Active [facility] Allergies, Adverse Reactions, Alerts Substance Category Reaction Severity Reaction type Status Date Reported Comments Source No Known Drug Allergies Unknown Allergy to Substance Active 02/08/2019 [facility] No Known Medication Allergies Assertion Drug allergy [facility] Immunizations No Data Provided for This Section Results Order Name Results Value Reference Range Date Interpretation Comments Source URINE AND STOOL POC UA Bld Trace *NA* (05/18/19 12:35 PM) Negative 05/18/2019 [facility] URINE AND STOOL POC UA Bili Negative *NA* (05/18/19 12:35 PM) Negative 05/18/2019 [facility] URINE AND STOOL POC UA Ket Negative mg/dL Negative mg/dL 05/18/2019 [facility] URINE AND STOOL POC UA Uro 0.2 0.1 - 1.0 05/18/2019 [facility] URINE AND STOOL POC UA Nit Positive *ABN* (05/18/19 12:35 PM) Negative 05/18/2019 [facility] URINE AND STOOL POC UA LeukEst Small *ABN* (05/18/19 12:35 PM) Negative 05/18/2019 [facility] URINE AND STOOL POC UA Color Yellow *NA* (05/18/19 12:35 PM) Yellow 05/18/2019 [facility] URINE AND STOOL POC UA Turbidity Clear *NA* (05/18/19 12:35 PM) Clear 05/18/2019 [facility] URINE AND STOOL POC UA SG 1.015 <=1.030 05/18/2019 [facility] URINE AND STOOL POC UA Glu Negative mg/dL Negative mg/dL 05/18/2019 [facility] URINE AND STOOL POC UA pH 6.5 5.0 - 8.0 05/18/2019 [facility] URINE AND STOOL POC UA Prot Negative mg/dL Negative mg/dL 05/18/2019 [facility] Capillary blood glucose measurement by glucometer (mass/volume) 126 70 - 120 05/04/2019 [facility] Blood leukocytes automated count (number/volume) 10.03 4.8 - 10.8 05/04/2019 [facility] Blood erythrocytes automated count (number/volume) 5.79 4.3 - 5.7 05/04/2019 [facility] Blood hemoglobin measurement (moles/volume) 16.2 14.0 - 18.0 05/04/2019 [facility] Automated blood hematocrit (volume fraction) 51.0 38.2 - 49.6 05/04/2019 [facility] Automated erythrocyte mean corpuscular volume 88.1 81 - 99 05/04/2019 [facility] Automated erythrocyte mean corpuscular hemoglobin (mass per erythrocyte) 28.0 28 - 32 05/04/2019 [facility] Automated erythrocyte mean corpuscular hemoglobin concentration measurement (mass/volume) 31.8 31 - 35 05/04/2019 [facility] RDW BldCo-Rto 14.8 11.7 - 14.4 05/04/2019 [facility] Automated blood platelet count (count/volume) 292 140 - 360 05/04/2019 [facility] Automated blood segmented neutrophil count as percentage of total leukocytes 77.1 38.7 - 80.0 05/04/2019 [facility] Automated blood lymphocyte count as percentage ot total leukocytes 14.1 18.0 - 39.1 05/04/2019 [facility] Automated blood monocyte count as percentage of total leukocytes 8.2 4.4 - 11.3 05/04/2019 [facility] Automated blood eosinophil count as percentage of total leukocytes 0.0 0.0 - 6.0 05/04/2019 [facility] Automated blood basophil count as percentage of total leukocytes 0.1 0.0 - 1.0 05/04/2019 [facility] IM GRANULOCYTES % 0.5 0.0 - 1.0 05/04/2019 [facility] Automated blood neutrophil count 7.7 2.1 - 6.9 05/04/2019 [facility] Blood lymphocytes count (number/volume) 1.4 1.0 - 3.2 05/04/2019 [facility] Blood monocytes automated count (number/volume) 0.8 0.2 - 0.8 05/04/2019 [facility] Automated blood eosinophil count 0.0 0.0 - 0.4 05/04/2019 [facility] Automated blood basophil count (count/volume) 0.0 0.0 - 0.1 05/04/2019 [facility] Absolute Immature Granulocyte (auto 0.05 0 - 0.1 05/04/2019 [facility] Serum or plasma sodium measurement (moles/volume) 138 136 - 145 05/04/2019 [facility] Serum or plasma potassium measurement (moles/volume) 3.5 3.5 - 5.1 05/04/2019 [facility] Serum or plasma chloride measurement (moles/volume) 81 98 - 107 05/04/2019 [facility] Serum or plasma carbon dioxide, total measurement (moles/volume) 43 22 - 29 05/04/2019 [facility] Serum or plasma anion gap 17.5 8 - 16 05/04/2019 [facility] Serum or plasma urea nitrogen measurement (mass/volume) 95 7 - 26 05/04/2019 [facility] Serum or plasma creatinine measurement (mass/volume) 2.57 0.72 - 1.25 05/04/2019 [facility] Serum or plasma urea nitrogen/creatinine mass ratio 37 6 - 25 05/04/2019 [facility] Estimated glomerular filtration rate (GFR) determination 25 60 05/04/2019 [facility] Glucose measurement 120 74 - 118 05/04/2019 [facility] Serum or plasma calcium measurement (mass/volume) 10.2 8.4 - 10.2 05/04/2019 [facility] Serum or plasma magnesium measurement (mass/volume) 3.1 1.3 - 2.1 05/04/2019 [facility] BNP Bld-mCnc 175.1 0 - 100 05/04/2019 [facility] Serum or plasma uric acid measurement (mass/volume) 8.3 4.8 - 8.0 04/30/2019 [facility] Blood culture NO GROWTH AFTER 72 HOURS 04/30/2019 [facility] Hemoglobin A1c Percent 5.6 4.0 - 7.0 04/25/2019 [facility] Serum or plasma creatine kinase measurement (enzymatic activity/volume) 73 30 - 200 04/24/2019 [facility] Serum or plasma creatine kinase MB measurement (mass/volume) 2.50 0 - 5.0 04/24/2019 [facility] Troponin I measurement by highly sensitive enzyme immunoassay < 0.001 0 - 0.300 04/24/2019 [facility] Serum or plasma total bilirubin measurement (mass/volume) 0.5 0.2 - 1.2 04/24/2019 [facility] Aspartate Amino Transf (AST/SGOT) 16 5 - 34 04/24/2019 [facility] Serum or plasma alanine aminotransferase measurement (enzymatic activity/volume) 13 0 - 55 04/24/2019 [facility] Serum or plasma protein measurement (mass/volume) 6.3 6.5 - 8.1 04/24/2019 [facility] Serum or plasma albumin measurement (mass/volume) 3.4 3.5 - 5.0 04/24/2019 [facility] Plasma globulin measurement (mass/volume) 2.9 2.3 - 3.5 04/24/2019 [facility] Serum or plasma albumin/globulin mass ratio 1.2 0.8 - 2.0 04/24/2019 [facility] Serum or plasma alkaline phosphatase measurement (enzymatic activity/volume) 87 40 - 150 04/24/2019 [facility] Prothrombin time (PT) in platelet poor plasma by coagulation assay 13.7 11.9 - 14.5 04/23/2019 [facility] INR in Platelet poor plasma by Coagulation assay 1.00 04/23/2019 [facility] Activated partial thromboplastin time (aPTT) in platelet poor plasma bycoagulation assay 35.8 23.8 - 35.5 04/23/2019 [facility] Urine color determination YELLOW YELLOW 04/23/2019 [facility] Urine clarity CLEAR CLEAR 04/23/2019 [facility] Specific gravity of Urine by Test strip 1.010 1.010 - 1.025 04/23/2019 [facility] Urine pH measurement by automated test strip 6 5 - 7 04/23/2019 [facility] Urine leukocyte esterase detection by automated test strip NEGATIVE NEGATIVE 04/23/2019 [facility] Urine nitrite detection by automated test strip NEGATIVE NEGATIVE 04/23/2019 [facility] Urine protein detection by automated test strip NEGATIVE NEGATIVE 04/23/2019 [facility] Urine glucose detection by automated test strip NEGATIVE NEGATIVE 04/23/2019 [facility] Urine ketones detection by automated test strip NEGATIVE NEGATIVE 04/23/2019 [facility] Urine urobilinogen measurement by test strip (mass/volume) 0.2 0.2 - 1 04/23/2019 [facility] Urine total bilirubin detection NEGATIVE NEGATIVE 04/23/2019 [facility] Urine erythrocytes detection NEGATIVE NEGATIVE 04/23/2019 [facility] Automated urine sediment leukocyte count by microscopy (number/high power field) 6-10 0 - 5 04/23/2019 [facility] Erythrocytes detection in urine sediment by light microscopy NONE 0 - 5 04/23/2019 [facility] Bacteria detection in urine sediment by light microscopy MODERATE NONE 04/23/2019 [facility] Epithelial cells detection in urine sediment by light microscopy FEW NONE 04/23/2019 [facility] Hyaline casts detection in urine sediment by light microscopy 0-1 0 - 1 04/23/2019 [facility] Capillary blood glucose measurement by glucometer (mass/volume) 126 70 - 120 02/15/2019 [facility] Blood leukocytes automated count (number/volume) 8.88 4.8 - 10.8 02/15/2019 [facility] Blood erythrocytes automated count (number/volume) 6.03 4.3 - 5.7 02/15/2019 [facility] Blood hemoglobin measurement (moles/volume) 16.4 14.0 - 18.0 02/15/2019 [facility] Automated blood hematocrit (volume fraction) 54.5 38.2 - 49.6 02/15/2019 [facility] Automated erythrocyte mean corpuscular volume 90.4 81 - 99 02/15/2019 [facility] Automated erythrocyte mean corpuscular hemoglobin (mass per erythrocyte) 27.2 28 - 32 02/15/2019 [facility] Automated erythrocyte mean corpuscular hemoglobin concentration measurement (mass/volume) 30.1 31 - 35 02/15/2019 [facility] RDW BldCo-Rto 16.2 11.7 - 14.4 02/15/2019 [facility] Automated blood platelet count (count/volume) 293 140 - 360 02/15/2019 [facility] Automated blood segmented neutrophil count as percentage of total leukocytes 65.2 38.7 - 80.0 02/15/2019 [facility] Automated blood lymphocyte count as percentage ot total leukocytes 19.8 18.0 - 39.1 02/15/2019 [facility] Automated blood monocyte count as percentage of total leukocytes 11.4 4.4 - 11.3 02/15/2019 [facility] Automated blood eosinophil count as percentage of total leukocytes 2.1 0.0 - 6.0 02/15/2019 [facility] Automated blood basophil count as percentage of total leukocytes 1.0 0.0 - 1.0 02/15/2019 [facility] IM GRANULOCYTES % 0.5 0.0 - 1.0 02/15/2019 [facility] Automated blood neutrophil count 5.8 2.1 - 6.9 02/15/2019 [facility] Blood lymphocytes count (number/volume) 1.8 1.0 - 3.2 02/15/2019 [facility] Blood monocytes automated count (number/volume) 1.0 0.2 - 0.8 02/15/2019 [facility] Automated blood eosinophil count 0.2 0.0 - 0.4 02/15/2019 [facility] Automated blood basophil count (count/volume) 0.1 0.0 - 0.1 02/15/2019 [facility] Absolute Immature Granulocyte (auto 0.04 0 - 0.1 02/15/2019 [facility] Prothrombin time (PT) in platelet poor plasma by coagulation assay 13.4 11.9 - 14.5 02/15/2019 [facility] INR in Platelet poor plasma by Coagulation assay 0.97 02/15/2019 [facility] Activated partial thromboplastin time (aPTT) in platelet poor plasma bycoagulation assay 38.9 23.8 - 35.5 02/15/2019 [facility] Serum or plasma sodium measurement (moles/volume) 139 136 - 145 02/15/2019 [facility] Serum or plasma potassium measurement (moles/volume) 4.7 3.5 - 5.1 02/15/2019 [facility] Serum or plasma chloride measurement (moles/volume) 84 98 - 107 02/15/2019 [facility] Serum or plasma carbon dioxide, total measurement (moles/volume) 42 22 - 29 02/15/2019 [facility] Serum or plasma anion gap 17.7 8 - 16 02/15/2019 [facility] Serum or plasma urea nitrogen measurement (mass/volume) 68 7 - 26 02/15/2019 [facility] Serum or plasma creatinine measurement (mass/volume) 2.16 0.72 - 1.25 02/15/2019 [facility] Serum or plasma urea nitrogen/creatinine mass ratio 31 6 - 25 02/15/2019 [facility] Estimated glomerular filtration rate (GFR) determination 30 60 02/15/2019 [facility] Glucose measurement 140 74 - 118 02/15/2019 [facility] Serum or plasma calcium measurement (mass/volume) 10.4 8.4 - 10.2 02/15/2019 [facility] Serum or plasma magnesium measurement (mass/volume) 3.3 1.3 - 2.1 02/15/2019 [facility] BNP Bld-mCnc 91.6 0 - 100 02/15/2019 [facility] Hemoglobin A1c Percent 6.2 4.0 - 7.0 02/12/2019 [facility] Phosphorus measurement 3.5 2.3 - 4.7 02/12/2019 [facility] Serum or plasma thyroxine (T4) free measurement (mass/volume) 0.92 0.9 - 1.8 02/12/2019 [facility] Serum or plasma thyrotropin measurement by detection limit <=0.005 miu/l (units/volume) 1.875 0.350 - 4.940 02/12/2019 [facility] Phosphorus measurement 3.5 2.3 - 4.7 02/12/2019 [facility] Serum or plasma thyroxine (T4) free measurement (mass/volume) 0.92 0.9 - 1.8 02/12/2019 [facility] Serum or plasma thyrotropin measurement by detection limit <=0.005 miu/l (units/volume) 1.875 0.350 - 4.940 02/12/2019 [facility] Serum or plasma creatine kinase measurement (enzymatic activity/volume) 127 30 - 200 02/11/2019 [facility] Serum or plasma creatine kinase MB measurement (mass/volume) 2.50 0 - 5.0 02/11/2019 [facility] Troponin I measurement by highly sensitive enzyme immunoassay 0.017 0 - 0.300 02/11/2019 [facility] Serum or plasma total bilirubin measurement (mass/volume) 0.6 0.2 - 1.2 02/09/2019 [facility] Aspartate Amino Transf (AST/SGOT) 15 5 - 34 02/09/2019 [facility] Serum or plasma alanine aminotransferase measurement (enzymatic activity/volume) 10 0 - 55 02/09/2019 [facility] Serum or plasma protein measurement (mass/volume) 6.7 6.5 - 8.1 02/09/2019 [facility] Serum or plasma albumin measurement (mass/volume) 3.4 3.5 - 5.0 02/09/2019 [facility] Plasma globulin measurement (mass/volume) 3.3 2.3 - 3.5 02/09/2019 [facility] Serum or plasma albumin/globulin mass ratio 1.0 0.8 - 2.0 02/09/2019 [facility] Serum or plasma alkaline phosphatase measurement (enzymatic activity/volume) 78 40 - 150 02/09/2019 [facility] Urine color determination YELLOW YELLOW 02/08/2019 [facility] Urine clarity CLEAR CLEAR 02/08/2019 [facility] Specific gravity of Urine by Test strip 1.010 1.010 - 1.025 02/08/2019 [facility] Urine pH measurement by automated test strip 7 5 - 7 02/08/2019 [facility] Urine leukocyte esterase detection by dipstick NEGATIVE NEGATIVE 02/08/2019 [facility] Urine nitrite detection NEGATIVE NEGATIVE 02/08/2019 [facility] Urine protein measurement by test strip (mass/volume) NEGATIVE NEGATIVE 02/08/2019 [facility] Urine glucose detection NEGATIVE NEGATIVE 02/08/2019 [facility] Urine ketones detection by automated test strip NEGATIVE NEGATIVE 02/08/2019 [facility] Urine urobilinogen measurement by test strip (mass/volume) 0.2 0.2 - 1 02/08/2019 [facility] Urine total bilirubin measurement (mass/volume) NEGATIVE NEGATIVE 02/08/2019 [facility] Urine erythrocytes detection NEGATIVE NEGATIVE 02/08/2019 [facility] Automated urine sediment leukocyte count by microscopy (number/high power field) NONE 0 - 5 02/08/2019 [facility] Erythrocytes detection in urine sediment by light microscopy NONE 0 - 5 02/08/2019 [facility] Bacteria detection in urine sediment by light microscopy NONE NONE 02/08/2019 [facility] Epithelial cells detection in urine sediment by light microscopy RARE NONE 02/08/2019 [facility] Capillary blood glucose measurement by glucometer (mass/volume) 151 70 - 120 01/09/2019 [facility] Blood leukocytes automated count (number/volume) 8.53 4.8 - 10.8 01/09/2019 [facility] Blood erythrocytes automated count (number/volume) 6.08 4.3 - 5.7 01/09/2019 [facility] Blood hemoglobin measurement (moles/volume) 16.4 14.0 - 18.0 01/09/2019 [facility] Automated blood hematocrit (volume fraction) 54.7 38.2 - 49.6 01/09/2019 [facility] Automated erythrocyte mean corpuscular volume 90.0 81 - 99 01/09/2019 [facility] Automated erythrocyte mean corpuscular hemoglobin (mass per erythrocyte) 27.0 28 - 32 01/09/2019 [facility] Automated erythrocyte mean corpuscular hemoglobin concentration measurement (mass/volume) 30.0 31 - 35 01/09/2019 [facility] RDW BldCo-Rto 17.9 11.7 - 14.4 01/09/2019 [facility] Automated blood platelet count (count/volume) 220 140 - 360 01/09/2019 [facility] Automated blood segmented neutrophil count as percentage of total leukocytes 87.2 38.7 - 80.0 01/09/2019 [facility] Automated blood lymphocyte count as percentage ot total leukocytes 7.0 18.0 - 39.1 01/09/2019 [facility] Automated blood monocyte count as percentage of total leukocytes 4.6 4.4 - 11.3 01/09/2019 [facility] Automated blood eosinophil count as percentage of total leukocytes 0.0 0.0 - 6.0 01/09/2019 [facility] Automated blood basophil count as percentage of total leukocytes 0.1 0.0 - 1.0 01/09/2019 [facility] IM GRANULOCYTES % 1.1 0.0 - 1.0 01/09/2019 [facility] Automated blood neutrophil count 7.4 2.1 - 6.9 01/09/2019 [facility] Blood lymphocytes count (number/volume) 0.6 1.0 - 3.2 01/09/2019 [facility] Blood monocytes automated count (number/volume) 0.4 0.2 - 0.8 01/09/2019 [facility] Automated blood eosinophil count 0.0 0.0 - 0.4 01/09/2019 [facility] Automated blood basophil count (count/volume) 0.0 0.0 - 0.1 01/09/2019 [facility] Absolute Immature Granulocyte (auto 0.09 0 - 0.1 01/09/2019 [facility] Serum or plasma sodium measurement (moles/volume) 140 136 - 145 01/09/2019 [facility] Serum or plasma potassium measurement (moles/volume) 4.4 3.5 - 5.1 01/09/2019 [facility] Serum or plasma chloride measurement (moles/volume) 91 98 - 107 01/09/2019 [facility] Serum or plasma carbon dioxide, total measurement (moles/volume) 40 22 - 29 01/09/2019 [facility] Serum or plasma anion gap 13.4 8 - 16 01/09/2019 [facility] Serum or plasma urea nitrogen measurement (mass/volume) 33 7 - 26 01/09/2019 [facility] Serum or plasma creatinine measurement (mass/volume) 1.41 0.72 - 1.25 01/09/2019 [facility] Serum or plasma urea nitrogen/creatinine mass ratio 23 6 - 25 01/09/2019 [facility] Estimated glomerular filtration rate (GFR) determination 49 60 01/09/2019 [facility] Glucose measurement 154 74 - 118 01/09/2019 [facility] Serum or plasma calcium measurement (mass/volume) 8.8 8.4 - 10.2 01/09/2019 [facility] Serum or plasma magnesium measurement (mass/volume) 2.5 1.3 - 2.1 01/09/2019 [facility] BNP Bld-mCnc 381.1 0 - 100 01/09/2019 [facility] Differential Total Cells Counted 100 01/08/2019 [facility] Manual blood neutrophils/100 leukocytes 91 40 - 74 01/08/2019 [facility] Manual blood lymphocytes/100 leukocytes 6 19 - 48 01/08/2019 [facility] Manual blood monocytes/100 leukocytes 3 3.4 - 9.0 01/08/2019 [facility] Blood platelets count by estimate (number/volume) ADEQUATE 01/08/2019 [facility] Platelet morphology NORMAL 01/08/2019 [facility] RBC morphology NORMAL 01/08/2019 [facility] Differential Total Cells Counted 100 01/08/2019 [facility] Manual blood neutrophils/100 leukocytes 91 40 - 74 01/08/2019 [facility] Manual blood lymphocytes/100 leukocytes 6 19 - 48 01/08/2019 [facility] Manual blood monocytes/100 leukocytes 3 3.4 - 9.0 01/08/2019 [facility] Blood platelets count by estimate (number/volume) ADEQUATE 01/08/2019 [facility] Platelet morphology NORMAL 01/08/2019 [facility] RBC morphology NORMAL 01/08/2019 [facility] Urine color determination STRAW YELLOW 01/07/2019 [facility] Urine clarity CLEAR CLEAR 01/07/2019 [facility] Specific gravity of Urine by Test strip 1.010 1.010 - 1.025 01/07/2019 [facility] Urine pH measurement by automated test strip 6 5 - 7 01/07/2019 [facility] Urine leukocyte esterase detection by dipstick NEGATIVE NEGATIVE 01/07/2019 [facility] Urine nitrite detection NEGATIVE NEGATIVE 01/07/2019 [facility] Urine protein measurement by test strip (mass/volume) NEGATIVE NEGATIVE 01/07/2019 [facility] Urine glucose detection NEGATIVE NEGATIVE 01/07/2019 [facility] Urine ketones detection by automated test strip NEGATIVE NEGATIVE 01/07/2019 [facility] Urine urobilinogen measurement by test strip (mass/volume) 0.2 0.2 - 1 01/07/2019 [facility] Urine total bilirubin measurement (mass/volume) NEGATIVE NEGATIVE 01/07/2019 [facility] Urine erythrocytes detection NEGATIVE NEGATIVE 01/07/2019 [facility] Automated urine sediment leukocyte count by microscopy (number/high power field) 0-5 0 - 5 01/07/2019 [facility] Erythrocytes detection in urine sediment by light microscopy NONE 0 - 5 01/07/2019 [facility] Bacteria detection in urine sediment by light microscopy NONE NONE 01/07/2019 [facility] Epithelial cells detection in urine sediment by light microscopy MODERATE NONE 01/07/2019 [facility] Transitional cells detection in urine sediment by light microscopy RARE NONE 01/07/2019 [facility] Hyaline casts detection in urine sediment by light microscopy >15 0 - 1 01/07/2019 [facility] Transitional cells detection in urine sediment by light microscopy RARE NONE 01/07/2019 [facility] Hyaline casts detection in urine sediment by light microscopy >15 0 - 1 01/07/2019 [facility] Serum or plasma creatine kinase measurement (enzymatic activity/volume) 66 30 - 200 01/06/2019 [facility] Serum or plasma creatine kinase MB measurement (mass/volume) 2.50 0 - 5.0 01/06/2019 [facility] [facility] Troponin I measurement by highly sensitive enzyme immunoassay 0.005 0 - 0.300 01/06/2019 [facility] Hemoglobin A1c Percent 6.2 4.0 - 7.0 01/06/2019 [facility] Serum or plasma thyroxine (T4) free measurement (mass/volume) 0.76 0.9 - 1.8 01/06/2019 [facility] Serum or plasma thyrotropin measurement by detection limit <=0.005 miu/l (units/volume) 0.739 0.350 - 4.940 01/06/2019 [facility] Procalcitonin (PCT) level 0.07 0.00 - 0.08 01/06/2019 [facility] Procalcitonin (PCT) level 0.07 0.00 - 0.08 01/06/2019 [facility] Procalcitonin (PCT) level 0.07 0.00 - 0.08 01/06/2019 [facility] Arterial blood pH measurement 7.35 7.31 - 7.41 01/05/2019 [facility] pCO2 BldA 66 41 - 51 01/05/2019 [facility] pCO2 BldA 98 80 - 105 01/05/2019 [facility] Arterial blood bicarbonate measurement (moles/volume) 36 23 - 28 01/05/2019 [facility] Arterial blood base excess by calculation 10.0 -2 - 3 - 2 01/05/2019 [facility] Arterial blood oxygen saturation measurement 97.0 95 - 98 01/05/2019 [facility] FiO2 35 01/05/2019 [facility] pCO2 BldA 66 41 - 51 01/05/2019 [facility] pCO2 BldA 98 80 - 105 01/05/2019 [facility] Arterial blood bicarbonate measurement (moles/volume) 36 23 - 28 01/05/2019 [facility] Arterial blood base excess by calculation 10.0 -2 - 3 - 2 01/05/2019 [facility] Arterial blood oxygen saturation measurement 97.0 95 - 98 01/05/2019 [facility] FiO2 35 01/05/2019 [facility] FiO2 35 01/05/2019 [facility] Arterial blood pH measurement 7.35 7.31 - 7.41 01/05/2019 [facility] Prothrombin time (PT) in platelet poor plasma by coagulation assay 16.2 11.9 - 14.5 01/05/2019 [facility] INR in Platelet poor plasma by Coagulation assay 1.24 01/05/2019 [facility] Activated partial thromboplastin time (aPTT) in platelet poor plasma bycoagulation assay 38.8 23.8 - 35.5 01/05/2019 [facility] Lactic Acid Level 13.5 4.5 - 19.8 01/05/2019 [facility] Serum or plasma total bilirubin measurement (mass/volume) 0.6 0.2 - 1.2 01/05/2019 [facility] Aspartate Amino Transf (AST/SGOT) 17 5 - 34 01/05/2019 [facility] Serum or plasma alanine aminotransferase measurement (enzymatic activity/volume) 14 0 - 55 01/05/2019 [facility] Serum or plasma protein measurement (mass/volume) 6.6 6.5 - 8.1 01/05/2019 [facility] Serum or plasma albumin measurement (mass/volume) 3.5 3.5 - 5.0 01/05/2019 [facility] Plasma globulin measurement (mass/volume) 3.1 2.3 - 3.5 01/05/2019 [facility] Serum or plasma albumin/globulin mass ratio 1.1 0.8 - 2.0 01/05/2019 [facility] Serum or plasma alkaline phosphatase measurement (enzymatic activity/volume) 106 40 - 150 01/05/2019 [facility] Blood culture NO GROWTH AFTER 5 DAYS, FINAL REPORT 01/05/2019 [facility] Lactic Acid Level 13.5 4.5 - 19.8 01/05/2019 [facility] Lactic Acid Level 13.5 4.5 - 19.8 01/05/2019 [facility] Urine creatinine measurement (mass/volume) 48.99 63 - 166 12/12/2018 [facility] Random urine protein/creatinine ratio 0.41 12/12/2018 [facility] Random urine protein/creatinine ratio 0.41 12/12/2018 [facility] Urine protein measurement (mass/volume) 20.3 1 - 14 12/12/2018 [facility] Blood hypochromia detection by light microscopy SLIGHT 09/15/2018 [facility] Blood ovalocytes detection by light microscopy FEW 09/15/2018 [facility] Blood ovalocytes detection by light microscopy FEW 09/15/2018 [facility] Giant platelet detection FEW 09/15/2018 [facility] Phosphorus measurement 2.9 2.3 - 4.7 08/04/2018 [facility] Urine potassium measurement (moles/volume) 24.1 08/01/2018 [facility] CHEM PANEL eGFR 55 06/24/2016 Result Comment: [...] should be multiplied by the estimated BMI. [facility] CHEM PANEL POC Creatinine 1.3 0.5 - 1.4 06/24/2016 [facility] CHEM PANEL eGFR 55 04/10/2016 Result Comment: [...] should be multiplied by the estimated BMI. 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 Total exam WPY=2598 mGy-cm. Impression: 1. Unremarkable barium swallow esophagram 12/28/2018 [facility] Sp[facility] cervical 2 or 3 view [...] visualized portions of the cervical spine. 12/28/2018 [facility] Spine lumbar wo contrast MRI Study: [...] bilateral neural foraminal narrowing at L4-L5. SL: [id number] 12/04/2017 [facility] Spine cervical wo contrast MRI Study: Spine [...] foraminal narrowing, left greater than right. SL: [id number] 12/04/2017 [facility] bilat w pelvis and [...] lower lumbar spine partially visualized. 04/23/2017 [facility] Sacroiliac joints series DX EXAMINATION: Sacroiliac joint [...] lower lumbar spine partially visualized. 04/23/2017 [facility] Spine Thoracic w/wo contrast MRI EXAM: Spine [...] nerve sheath tumor, or epidermoid cyst. SL: [id number] 06/24/2016 [facility] Spine lumbar w/wo contrast MRI Patient Name: STEVE BENEDICT : 1945; Age: 70 years y/o Male MR: [id number] Study: Spine lumbar w/wo contrast MRI 06/24/2016 [...] compatible with acute on chronic denervation. SL: [id number] 06/24/2016 [facility] Spine thoracic wo contrast CT CT THORACIC [...] No acute abnormalities are visualized. SL:16 06/19/2016 [facility] lumbar wo contrast CT CT THORACIC [...] No acute abnormalities are visualized. SL:16 06/19/2016 [facility] Spine cervical 2 or 3 view [...] 2. No acute fracture or malalignment. 04/23/2016 [facility] Spine Thoracic w/wo contrast MRI MRI THORACIC [...] and multiple bilateral renal cysts. SL:16 04/10/2016 [facility] Spine lumbar w/wo contrast MRI EXAM: MRI [...] smoking and anemia among other etiologies. SL: [id number] 03/28/2016 [facility] Consultation Notes No Data Provided for This Section Discharge Summaries No Data Provided for This Section History and Physicals No Data Provided for This Section Vital Signs Vital Sign Value Date Comments Source BMI Calculated 34.5 04/19/2019 [facility] Height 175.26 cm 04/19/2019 [facility] Weight 105.966 04/19/2019 [facility] Encounters Location Location Details Encounter Type Encounter Number Reason For Visit Attending Provider ADM Date DC Date Status Source [facility] [place] [facility] [id number] Monique Reed 03/06/2016 03/07/2016 [facility] Outpatient [id number] Christopher Summers 03/28/2016 03/29/2016 [facility] [place] Out[facility] Di[facility] Services [id number] Angel Martínez 04/02/2016 04/03/2016 [facility] Outpatient [id number] Elida Valenzuela 04/10/2016 04/11/2016 [facility] [place] Out[facility] Diag Services [id number] Monique Reed 04/23/2016 04/24/2016 [facility] Outpatient [id number] FADI DANIEL 06/06/2016 [facility] Outpatient [id number] Fadi Daniel Jr 06/19/2016 06/20/2016 [facility] Outpatient [id number] Fadi Daniel Jr 06/24/2016 06/25/2016 [facility] Outpatient [id number] FADI FREDY 07/11/2016 Active [facility] [place] Outpt Diag Services [id number] Mila Jones 04/23/2017 04/24/2017 [facility] [place] [facility] Outpatient [id number] Oleksandr Marnidarreljeanine 12/05/2017 12/05/2017 [facility] Discharged Inpatient [id number] HAILEE HERNANDEZ MD 08/02/2018 08/05/2018 [facility] Discharged Inpatient [id number] ROSALIE MEDINA MD 09/13/2018 09/16/2018 [facility] Phone Message [id number] 11/04/2018 11/06/2018 [facility] Discharged Inpatient (obs) [id number] HAILEE HERNANDEZ MD 11/06/2018 11/07/2018 [facility] [id number] [facility] 11/30/2018 Active [facility] [id number] HAILEE HERNANDEZ MD 12/08/2018 [facility] Discharged Inpatient [id number] ALINA PULIDO MD 12/13/2018 12/15/2018 [facility] Outpatient [id number] [facility]ICS 12/16/2018 Active [facility] Outpatient [id number] [facility] 12/22/2018 Active [facility] [place] Outpt Diag Services [id number] Mila Jones 12/28/2018 12/29/2018 [facility] [place] Discharged Inpatient (obs) [id number] HAILEE HERNANDEZ MD 12/30/2018 12/31/2018 [facility] Discharged Inpatient [id number] ROSALIE MEDINA MD 01/05/2019 01/09/2019 [facility] Outpatient [id number] Kelechisom Sibley 02/02/2019 Active [facility] Discharged Inpatient [id number] ROSALIE MEDINA MD 02/08/2019 02/15/2019 [facility] Outpatient [id number] [facility] 04/19/2019 Active [facility] Outpatient [id number] Ke[facility] 04/19/2019 04/20/2019 [facility] Outpatient [id number] NURSE VISIT 04/21/2019 Active [facility] Ambulatory Pre-Reg [id number] Christopher Summers 04/21/2019 04/21/2019 [facility] Discharged Inpatient [id number] ROSALIE MEDINA MD 04/23/2019 05/04/2019 [facility] Outpatient [id number] [facility] 05/04/2019 Active [facility] Urology [facility] Ambulatory Pre-Reg [id number] Christopher Summers 05/04/2019 05/04/2019 [facility] [id number] Kelechisom Sibley 05/04/2019 05/04/2019 [facility] Outpatient [id number] -URODYNAMICS, 05/18/2019 Active [facility] Outpatient [id number] Christopher Bartholomewight 05/18/2019 05/19/2019 [facility] Outpatient [id number] MED_ASST VISIT 05/27/2019 Active [facility] Outpatient [id number] -URODYNAMICS, 06/01/2019 Active [facility] Outpatient [id number] Ke[facility] 06/02/2019 [facility] Outpatient [id number] -URODYNAMICS, 06/08/2019 [facility] Outpatient [id number] Kelechi [facility] 06/14/2019 Active [facility] Procedures Procedure Code Date Perfomer Comments Source MRI non-joint region of extremity upper wo contrast [id number] 04/29/2019 [facility] X-ray of chest, two views [id number] 04/23/2019 [facility] X-ray of chest, single view [id number] 02/08/2019 [facility] US abdomen complete [id number] 01/06/2019 [facility] Computed tomography of chest with contrast [id number] 01/05/2019 [facility] PRQ CARD STENT W/ANGIO 1 VSL [id number] 12/08/2018 [facility] CORONARY ARTERY ANGIO S&I [id number] 12/08/2018 [facility] PRQ CARD STENT W/ANGIO 1 VSL [id number] 11/06/2018 [facility] CORONARY ARTERY ANGIO S&I [id number] 11/06/2018 [facility] X-ray of chest, two views [id number] 09/13/2018 [facility] Cystoscopy [id number] 08/25/2018 [facility] Cystoscopy [id number] 08/25/2018 [facility] [place] X-ray of chest, two views [id number] 07/31/2018 [facility] Ultrasound, renal [id number] 07/31/2018 [facility] Complex uroflowmetry [id number] 03/30/2018 [facility] Complex uroflowmetry [id number] 03/30/2018 [facility] [place] Catheter replacement [id number] [facility] Fusion<sup>1</sup> [id number] cervical fusion done on 09/11/[address] Nilo Adames [facility] Prostate manipulation [id number] [facility] Stent replacement [id number] [facility] Catheter replacement [id number] [facility] [place] Fusion<sup>1</sup> [id number] cervical fusion done on 09/11/[address] Nilo Adames [facility] [place] Prostate manipulation [id number] [facility] [place] Stent replacement [id number] [facility] [place] Catheter replacement [id number] [facility] Fusion<sup>1</sup> [id number] cervical fusion done on 09/11/[address] Nilo Adames [facility] Prostate manipulation [id number] [facility] Stent replacement [id number] [facility] Assessment and Plan No Data Provided for This Section Plan of Care Plan of Care Date Source Discharge Date 05/04/19 10:54am Disposition HOME, SELF-CARE Instructions/Education Provided COPD Congestive Heart Failure Prescriptions See Medication Section Additional Instructions/Education f/u with PCP in 1-2 weeks 05/04/2019 [facility] Discharge Date 02/15/19 2:47pm Disposition HOME, SELF-CARE Instructions/Education Provided Atrial Fibrillation Cellulitis Prescriptions See Medication Section Additional Instructions/Education F/U WITH PCP IN 1-2 WEEKS F/U WITH DR HERNANDEZ IN 1-2 WEEKS F/U WITH DR AMEZCUA IN 1-2 WEEKS F/U WITH DR RESENDEZ IN 1-2 WEEKS CONTINUE WITH THICKENED LIQUIDS 02/15/2019 [facility] Discharge Date 01/09/19 1:42pm Disposition HOME, SELF-CARE Instructions/Education Provided Cirrhosis COPD Prescriptions See Medication Section Referrals HAILEE HERNANDEZ MD (Cardiology) Order Date: 7-10 Days Entered Date: 01/09/2019 12:33pm Address: [address] [place] [address] [address], [place] [id number] JOHNSON AMEZCUA MD (Internal Medicine) Order Date: 1-2 Weeks Entered Date: 01/09/2019 12:33pm Address: [address] [place] [address] [address] [place] [address] Additional Instructions/Education FOLLOW UP WITH PCP IN 1-2 WEEKS FOLLOW UP WITH NEPHROLOGY IN 1-2 WEEKS FOLLOW UP WITH DR BLACK IN 1-2 WEEKS FOLLOW UP WITH CARDIOLOGY (DR. HERNANDEZ) NEXT WEEK CALL EACH OFFICE TO SCHEDULE AN APPOINTMENT 01/09/2019 [facility] Social History Social History Date Source Social History Problem Response Recorded Date/Time Onset Date Status Hx Psychiatric Problems No 06/04/2017 3:20pm Not Applicable Not Applicable Hx Substance Use Disorder No 12/30/2018 10:43am Not Applicable Not Applicable Hx Alcohol Use No 12/30/2018 10:43am Not Applicable Not Applicable 05/04/2019 [facility] Social History TypeResponse Smoking Status Former smoker; Ready to change: No; Concerns about tobacco use in household: No; Exposure to Tobacco Smoke None; Cigarette Smoking Last 365 Days No; Reg Smoking Cessation Counseling No; Other Tobacco Frequency QUIT SMOKING entered on: 04/19/19 1Quit smoking 201104/19/2019 [facility] Social History TypeResponse Smoking Status Former smoker; Ready to change: No; Concerns about tobacco use in household: No; Exposure to Tobacco Smoke None; Cigarette Smoking Last 365 Days No; Reg Smoking Cessation Counseling No; Other Tobacco Frequency QUIT SMOKING 2011; entered on: 12/22/18 12/22/2018 [facility] Social History TypeResponse Smoking Status Never smoker; Ready to change: No; Concerns about tobacco use in household: No; Exposure to Tobacco Smoke None; Cigarette Smoking Last 365 Days No; Reg Smoking Cessation Counseling No entered on: 07/11/16 07/11/2016 [facility] Social History TypeResponse 04/24/2016 [facility] [place] Family History No Data Provided for This Section Advance Directives Order Name Results Value Date Source Advance Directives Advance Directives Directive Response Recorded Date/Time Does the patient have an advance directive? Yes 04/23/19 9:55pm If yes, is advance directive on file with [facility]? No 04/23/19 9:55pm If not on file with [facility] will patient provide a copy? Yes 04/23/19 9:55pm Do you have a Directive to Physician? Yes 04/23/19 6:20pm Do you have a Medical Power of Ripshear Operator? Yes 04/23/19 6:20pm Do you have an out of hospital Do Not Resuscitate Order? Yes 04/23/19 6:20pm Do you have any special needs we should be aware of? No 04/23/19 6:20pm Do you have a support person here with you today? Yes 04/23/19 6:20pm Did patient receive Notice of Privacy Practices? Yes 04/23/19 6:20pm Did patient receive patient rights and responsibilities? Yes 04/23/19 6:20pm 05/04/2019 [facility] Advance Directives Advance Directives Directive Response Recorded Date/Time Does the patient have an advance directive? No 02/09/19 2:20am If yes, is advance directive on file with [facility]? No 02/09/19 2:20am If not on file with [facility] will patient provide a copy? No 02/09/19 2:20am Do you have a Directive to Physician? No 02/08/19 3:53pm Do you have a Medical Power of Ripshear Operator? No 02/08/19 3:53pm Do you have an [...] rights and responsibilities? Yes 02/08/19 3:54pm 02/15/2019 [facility] Advance Directives Advance Directives Directive Response Recorded Date/Time Does the patient have an advance directive? No 01/06/19 12:00am If yes, is advance directive on file with [facility]? No 01/06/19 12:00am If not on file with [facility] will patient provide a copy? No 01/06/19 12:00am Do you have a Directive to Physician? Yes 01/05/19 2:05pm Do you have a Medical Power of Ripshear Operator? Yes 01/05/19 2:05pm Do you have an [...] rights and responsibilities? Yes 01/05/19 2:05pm 01/09/2019 [facility] Functional Status No Data Provided for This Section
[2019-05-26] MEDS ORDERED: SODIUM CHLORIDE 0.9% 1000ML 1,000 ML IV STA (14:35)
[2019-05-26] MEDS ORDERED: ASPIRIN 81 MG CHEW TAB PO ONE (14:45)
[2019-05-26 14:50] LABS: BASOPHILS % 0.4 % (0.0-1.0); EOSINOPHILS # (AUTO) 0.1 (0.0-0.4); EOSINOPHILS % 2.7 % (0.0-6.0); HEMATOCRIT 33.4 % (38.2-49.6); HEMOGLOBIN 10.5 g/dL (14.0-18.0); LYMPHOCYTES # (AUTO) 0.8 (1.0-3.2); LYMPHOCYTES % 16.6 % (18.0-39.1); MEAN CORPUSCULAR HGB CONC 31.4 g/dL (31-35); MEAN CORPUSCULAR VOLUME 89.1 fL (81-99); MONOCYTES # (AUTO) 0.6 (0.2-0.8); MONOCYTES % 13.2 % (4.4-11.3); NEUTROPHILS # (AUTO) 3.2 (2.1-6.9); NEUTROPHILS % 66.9 % (38.7-80.0); PLATELET COUNT 183 x10e3/uL (140-360); RED BLOOD COUNT 3.75 x10e6/uL (4.3-5.7); RED CELL DISTRIBUTION WIDTH 15.1 % (11.7-14.4)
[2019-05-26 15:03] LABS: INR 1.46; PROTHROMBIN TIME 18.3 seconds (11.9-14.5)
[2019-05-26 15:04] LABS: PARTIAL THROMBOPLASTIN TIME 56.4 seconds (23.8-35.5)
[2019-05-26 15:13] LABS: ALBUMIN 3.3 g/dL (3.5-5.0); CALCIUM 9.5 mg/dL (8.4-10.2); CREATININE, SERUM 2.56 mg/dL (0.72-1.25)
[2019-05-26 15:20] LABS: CREATINE KINASE MB 2.8 ng/mL (0-5.0)
--- NOTE | 2019-05-26 15:20 | Diagnostic Imaging Report ---
EXAMINATION: CHEST SINGLE (PORTABLE) INDICATION: Hypotension COMPARISON: Chest radiograph of 04/23/2019 FINDINGS: LINES/TUBES:EKG leads overlie the chest. LUNGS:The lungs are well-inflated. Mild patchy opacity at the left lung base. Scattered bilateral calcified granulomas. PLEURA:No pleural effusion or pneumothorax. MEDIASTINUM:The cardiomediastinal silhouette appears unchanged in size and shape. BONES/SOFT TISSUES:No acute osseous injury. Multiple healed posterior and lateral left rib fractures. ABDOMEN:No free air under the diaphragm. IMPRESSION: Patchy opacity at the left lung base, likely subsegmental atelectasis. Signed by: Santino Gutierrez MD on 05/26/2019 3:17 PM
[2019-05-26] MEDS ORDERED: ACETAMINOPHEN 325 MG TAB PO ONE (15:21)
[2019-05-26] MEDS ORDERED: PIPER-TAZ 3.375 GM 50 ML IV ONE (15:27)
[2019-05-26] MEDS ORDERED: SODIUM CHLORIDE 0.9% IV SCH (15:30)
--- NOTE | 2019-05-26 16:25 | Diagnostic Imaging Report ---
EXAMINATION: CHEST 2 VIEWS INDICATION: Sepsis COMPARISON: Chest radiograph of earlier the same day. FINDINGS: LINES/TUBES:None LUNGS:The lungs are moderately inflated. No focal consolidation. Subsegmental atelectasis at the left lung base. PLEURA:No pleural effusion or pneumothorax. MEDIASTINUM:The cardiomediastinal silhouette appears unchanged in size and shape. BONES/SOFT TISSUES:No acute osseous injury. Old healed left rib fractures. ABDOMEN:No free air under the diaphragm. IMPRESSION: No significant interval change. Signed by: Santino Gutierrez MD on 05/26/2019 4:21 PM
[2019-05-26] MEDS ORDERED: POTASSIUM CHLORIDE 20 MEQ TAB CR PO ONE (16:30)
--- OUTSIDE RECORDS SUMMARY | 2019-05-26 16:53 | XMS REPORT | Clinical Summary ---
Author Author [facility] Organization [facility] Address Unknown Phone Unavailable Care Team Providers Care Senior Clinician Name Role Phone Asked, No Pcp PCP [...] skin tears; Jerking movements of extremities 05/05/2019 [facility] General Internal Medicine - Encounter 05/11/2019 after [...] MMODE SPECTRAL 11:00 AM CDT COLOR DOPPLER ([id number]) POC GLUCOSE Routine 05/07/2019 7:41 AM CDT [...] PRELIMINARY Routine 05/05/2019 INTERPRETATION 3:19 PM CDT MN INSERT NON-TUNNEL CV Routine 05/05/2019 CATH 3:19 PM CDT MN CRITICAL CARE, ADDL 30 Routine 05/05/2019 MIN 3:19 PM CDT MN CRITICAL CARE, E/M Routine 05/05/2019 30-74 MINUTES [...] glucose 101 (H) 65 - 99 mg/dL [place] Comment: [facility] COUNT INCLUDES THE [facility] Notified RN HOSPITAL Meter ID: [id number] Senior Producer: Gage Moe Specimen Performing Organization Address City/State/Zipcode Phone Number [facility] DEPARTMENT OF [address] [place] [address] PATHOLOGY AND GENOMIC MEDICINE [place] [facility] [address] [place] [address] HOSPITAL * MRI Lumbar Spine Wo Contrast [...] L5-S1. Additional degenerative changes are detailed above. [id number] Procedure Note Hm Interface, Radiology Results 05/08/2019 [...] L5-S1. Additional degenerative changes are detailed above. [id number] Performing Organization Address City/State/Zipcode Phone Number [facility] [address] [place] [address] * MRI Thoracic Spine Wo Contrast (05/08/2019 [...] is associated cord flattening without cord hyperintensity. [facility]-[id number] Procedure Note Hm Interface, Radiology Results Incoming [...] is associated cord flattening without cord hyperintensity. [facility]-[id number] Performing Organization Address City/State/Zipcode Phone Number [facility] [address] [place] [address] * Estimated GFR (05/08/2019 6:17 AM CDT) Only the most recent of 6 results within the time period is included. Estimated GFR 52 (A) mL/min/1.73 m2 [place] Comment: [facility] rpretation G1 >=90 Normal or high G2 60-89Mildly decreased [id number] Mildly to moderately decreased [id number] Moderately to severely decreased G4 15-29Severely decreased G5 <15Kidney failure The eGFR was calculated using the Chronic Kidney Disease Epidemiology Collaboration (CKD-EPI) equation. Interpretation is based on recommendations of the National Kidney Foundation-Kidney Disease Outcomes Quality Initiative (NKF-KDOQI) published in 2014. Specimen Plasma specimen Performing Organization Address City/State/Zipcode Phone Number [facility] DEPARTMENT OF [address] [place] [address] PATHOLOGY AND GENOMIC MEDICINE [address] * Partial thromboplastin time, activated (05/08/2019 6:17 AM CDT) Only the most recent of 3 results within the time period is included. Pathologist [facility] PTT 33.1 23.0 - 36.0 sec [place] Comment: [facility] PTT therapeutic range for HOSPITAL unfractionated heparin is 61.0-112.0 seconds which corresponds to Anti-Xa 0.3-0.7 U/ml. Specimen Blood Performing Organization Address City/[facility] Phone Number [facility] DEPARTMENT OF [address] [place] [address] PATHOLOGY AND [facility] MEDICINE [address] * Prothrombin time with INR (05/08/2019 6:17 AM CDT) Only the most recent of 3 results within the time period is included. Pathologist [facility] Prothrombin 17.5 (H) 11.5 - 14.5 sec [facility] INR 1.5 [place] Comment: [facility] The International Normalized HOSPITAL Ratio (INR) is a therapeutic monitoring tool for patients who are stable on oral anticoagulant therapy. An INR of 2.0-3.0 is suggested for deep vein thrombosis/pulmonary embolism. Specimen Blood Performing Organization Address City/[facility] Cent[facility]ode Phone Number [facility] DEPARTMENT OF [address] [place] [address] PATHOLOGY AND GENOMIC MEDICINE [address] * CBC with platelet and differential (05/08/2019 6:17 AM CDT) Only the most recent of 4 results within the time period is included. WBC 7.75 4.50 - 11.00 k/uL [facility] RBC 3.85 (L) 4.40 - 6.00 m/uL [facility] HGB 10.9 (L) 14.0 - 18.0 g/dL [facility] HCT 36.2 (L) 41.0 - 51.0 % [facility] MCV 94.0 82.0 - 100.0 fL [facility] MCH 28.3 27.0 - 34.0 pg [facility] MCHC 30.1 (L) 31.0 - 37.0 g/dL [facility] RDW - SD 52.2 37.0 - 55.0 fL [facility] MPV 10.8 8.8 - 13.2 fL [facility] Platelet count 202 150 - 400 k/uL [facility] Nucleated RBC 0.00 /100 WBC [facility] Neutrophils 72.8 (H) 39.0 - 69.0 % [facility] Lymphocytes 14.3 (L) 25.0 - 45.0 % [facility] Monocytes 8.5 0.0 - 10.0 % [facility] Eosinophils 3.5 0.0 - 5.0 % [facility] Basophils 0.3 0.0 - 1.0 % [facility] Immature 0.6Comment: "Immature 0.0 - 1.0 % [place] granulocytes granulocytes" (promyelocytes, [facility] myelocytes, metamyelocytes) HOSPITAL Specimen Blood Performing Organization Address [facility] Phone Number [facility] [place] [address] PATHOLOGY AND [facility] MEDICINE [address] * Phosphorus level (05/08/2019 6:17 AM CDT) Only the most recent of 5 results within the time period is included. Phosphorus 2.3 (L) 2.4 - 4.5 mg/dL [facility] Specimen Plasma specimen Performing Organization Address [facility] Phone Number [facility] [place] [address] PATHOLOGY AND GENOMIC MEDICINE [address] * Magnesium level (05/08/2019 6:17 AM CDT) Only the most recent of 4 results within the time period is included. Magnesium 2.0 1.6 - 2.4 mg/dL [facility] Specimen Plasma specimen Performing Organization Address [facility] Phone Number [facility] [place] [address] PATHOLOGY AND GENOMIC MEDICINE [address] * Venous blood gas (05/08/2019 6:17 AM CDT) Only the most recent of 4 results within the time period is included. pH, venous 7.42 7.32 - 7.42 [facility] pCO2, venous 59 (H) 45 - 51 mmHg [facility] pO2, venous 105 (H) 25 - 40 mmHg [facility] Base excess, 11 (H) -2 - 2 meq/L [facility] O2 saturation, 98 (H) 40 - 70 % [facility] Bicarbonate, 37.1 (H) 21.0 - 28.0 mmol/L [facility] Specimen Blood Performing Organization Address City/[facility] Phone Number [facility] [place] [address] PATHOLOGY AND GENOMIC MEDICINE [address] * Ionized calcium (05/08/2019 6:17 AM CDT) Only the most recent of 3 results within the time period is included. pH 7.54 [facility] Ionized calcium 1.07 (L) 1.11 - 1.32 mmol/L [facility] Specimen Plasma specimen Performing Organization Address [facility] Phone Number [facility] [place] [address] PATHOLOGY AND GENOMIC MEDICINE [address] * Basic metabolic panel (05/08/2019 6:17 AM CDT) Only the most recent of 4 results within the time period is included. Sodium 139 135 - 148 mEq/L [facility] Potassium 3.2 (L) 3.5 - 5.0 mEq/L [facility] Chloride 94 (L) 98 - 112 mEq/L [facility] CO2 36 (H) 24 - 31 mEq/L [facility] Anion gap 9@ANIO 7 - 15 mEq/L [facility] BUN 24 (H) 8 - 23 mg/dL [facility] Creatinine 1.33 (H) 0.70 - 1.20 mg/dL [facility] Glucose 114 (H) 65 - 99 mg/dL [facility] Calcium 8.9 8.8 - 10.2 mg/dL [facility] Specimen Plasma specimen Performing Organization Address City/[facility]ode Phone Number [facility] [place] [address] PATHOLOGY AND GENOMIC MEDICINE [facility] [address] [place] [address] * Potassium level (05/07/2019 2:35 PM CDT) Potassium 3.9 3.5 - 5.0 mEq/L [facility] Specimen Plasma specimen Performing Organization Address [facility] Phone Number [facility] DEPARTMENT OF [address] [place] [address] PATHOLOGY AND GENOMIC MEDICINE [address] * XR Pelvis 3+ Vw (05/07/2019 [...] Surgical clips projecting over the pubic symphysis. [facility]-[id number] Procedure Note Interface, Radiology Results Incoming - [...] Surgical clips projecting over the pubic symphysis. [facility]-[id number] Performing Organization Address [facility] Phone Number [facility] [address] [place] [address] * Echocardiogram complete w contrast and 3D if needed (05/07/2019 11:00 AM CDT) Specimen Narrative Performed At [facility] Echocardiography Report [address] [facility] [address]Name:STEVE BENEDICT CPacarrie.ID:[id number] .Date: 05/07/2019 Refer.MD:RASHEEDA AHMADI MD Exam Time: 10:57:00 AM Study Type:Routine Echo Height:69inWeight:194lb BSA: 2.04 m2 DOBAge:1945,73Y Sex: MALEBP:130/61 Sonogrphr: Marilee Nicholson, [facility], RVSPat. Stat.:Inpatient Room:[address] Status:Final Echo Event ID:[id number] Order ID:[id number] Reason for Study:Syncope without cardiac evidence Procedures:2D [...] RAPof 5 mmHg. MEASUREMENTS: 2D Parasternal [place] LVOT 2.2 cmLA Ds5 cm LVIDd5.1 cmIndex2.5 cm/m Ao An2.1 cm LVIDs2.7 cmAo Rtd 3.6 cm Index1.7 cm/m LV%fs 47.1 % LV Lcnh102.2 g(122-174) IVSd 1.1 cmLVM Xaqee536.2 g/m2 LVPWd1.3 cmRWT0.5 LA Sng Plane LA Area 33.6 cm2(8.8-23.4) LA Vol 132.1 ml Index64.8 ml/m LA LngAx 7.1 cm DOPPLER LVOT Stroke Vol LVOT 2.2 cmLVOT CO6 l/min LVOT TVI15.9 cmLVOT CI2.9 l/m/m2 LVOT Tm242 nkrrNF17 bpm LVOT SV 60.6 ml Signed 05/07/2019 07:08 PM Ross Hodge M.D. Procedure Note Interface, Radiology Results In - 05/07/2019 7:08 PM CDT Echocardiography Report [address] [place] [address] Pat.Name: STEVE BENEDICT Pat.ID: [id number] .Date: 05/07/2019 Refer.MD: RASHEEDA AHMADI MD Exam Time: 10:57:00 AM Study Type:Routine Echo Height: 69in Weight: 194lb BSA: 2.04 m2 Age: 10 1945,73Y Sex: MALE BP: 130/61 Sonogrphr: Marilee Nicholson RDCS, RVSPat. Stat.:Inpatient Room: [place] [address] Study Status:Final Echo Event ID:[id number] Order ID: [id number] Reason for Study:Syncope without cardiac evidence Procedures:2D [...] of 5 mmHg. MEASUREMENTS: 2D Parasternal [place] LVOT 2.2 cm LA Ds 5 cm [...] PM Ross Hodge M.D. Performing Organization Address City/[facility]/Zipcode Phone Number [facility] [address] [place] [address] * Thyroid stimulating hormone (05/07/2019 4:15 AM CDT) TSH 2.16 0.27 - 4.20 uIU/mL [facility] Specimen Plasma specimen Performing Organization Address [facility] Cent[facility]ode Phone Number [facility] DEPARTMENT OF [address] [place] [address] PATHOLOGY AND GENOMIC MEDICINE [address] * T4, free (05/07/2019 4:15 AM CDT) T4, free 1.2 0.9 - 1.7 ng/dL [facility] Specimen Plasma specimen Performing Organization Address [facility] Phone Number [facility] [place] [address] PATHOLOGY AND GENOMIC MEDICINE [address] * US Renal (05/06/2019 1:55 PM CDT) Specimen Narrative Performed At EXAMINATION:US RENAL [facility] CLINICAL HISTORY:Renal failureacute (kidney injury) COMPARISON:None. FINDINGS: The right kidney voagzvdf20.7 x 4.5 x 4.4 cm, parenchymal thickness 1.5 cm The left kidney vufzpych83.5 x 4.6 x 4.5 cm, parenchymal thickness 1.5 cm There is a 6 mm equivocal right renal cyst. The left kidney contains 2 simple appearing cyst measuring 4 cm and 2.8 cm. There is no hydronephrosis. The urinary bladder is decompressed by Macedo catheter. IMPRESSION: Benign left renal cyst. Questionable right renal cyst. No hydronephrosis. [facility]-[id number] Procedure Note Interface, Radiology Results Incoming - [...] cyst. Questionable right renal cyst. No hydronephrosis. [facility]-[id number] Performing Organization Address City/State/Zipcode Phone Number [facility] [address] [place] [address] * Comprehensive metabolic panel (05/06/2019 5:00 AM CDT) Only the most recent of 2 results within the time period is included. Sodium 142 135 - 148 mEq/L [facility] Potassium SEE COMMENT 3.5 - 5.0 mEq/L [place] Comment: [facility] Footnote--------- HOSPITAL SPECIMEN HEMOLYZED.RECOLLECT REQUESTED FOR K+ AND AST. Chloride 95 (L) 98 - 112 mEq/L [facility] CO2 38 (H) 24 - 31 mEq/L [facility] Anion gap 9@ANIO 7 - 15 mEq/L [facility] BUN 87 (H) 8 - 23 mg/dL [facility] Creatinine 1.82 (H) 0.70 - 1.20 mg/dL [facility] Glucose 135 (H) 65 - 99 mg/dL [facility] Calcium 8.6 (L) 8.8 - 10.2 mg/dL [facility] Protein 5.9 (L) 6.3 - 8.3 g/dL [place] Comment: [facility] 4.6-7.0 g/dL 1 week 4.4-7.6 g/dL 7 months-1year 5.1-7.3 g/dL 1-2 years5.6-7 .5 g/dL >3 years6.0-8 .0 g/dL 18-150 6.3-8.3 g/dL Albumin 3.1 (L) 3.5 - 5.0 g/dL [facility] A/G ratio 1.1 0.7 - 3.8 [facility] Alkaline 67 40 - 129 U/L [place] phosphatase [facility] AST SEE COMMENTComment: 10 - 50 U/L [place] Footnote--------- [facility] ALT 20 5 - 50 U/L [facility] Total bilirubin 0.5 0.0 - 1.2 mg/dL [facility] Specimen Plasma specimen Performing Organization Address City/[facility] Phone Number [facility] [place] [address] PATHOLOGY AND GENOMIC MEDICINE [address] * Blood culture, aerobic & anaerobic (05/05/2019 9:20 PM CDT) Only the most recent of 2 results within the time period is included. Blood culture No growth after 5 days of [place] isolate incubation. [facility] Comment: HOSPITAL Specimen Information Specimen Source: Blood Specimen Site: Forearm, left Specimen Blood - Forearm, left Performing Organization Address City/[facility]ode Phone Number [facility] [place] [address] PATHOLOGY AND [facility] MEDICINE [address] * Lactic acid level (05/05/2019 9:05 PM CDT) Lactic acid 1.4 0.5 - 2.2 mmol/L [facility] Specimen Blood Performing Organization Address City/[facility] Phone Number [facility] [place] [address] PATHOLOGY AND GENOMIC MEDICINE [address] * Ammonia level (05/05/2019 9:05 PM CDT) Ammonia 20 16 - 60 umol/L [facility] Specimen Blood Performing Organization Address City/[facility]ode Phone Number [facility] [place] [address] PATHOLOGY AND GENOMIC MEDICINE [address] * CT Chest Wo Contrast Abdomen [...] 3.Chronic and incidental findings as detailed above. [id number] Procedure Note Hm Interface, Radiology Results Incoming [...] Chronic and incidental findings as detailed above. [facility]-[id number] Performing Organization Address City/[facility]/Zipcode Phone Number [facility] [address] [place] [address] * Urinalysis screen and microscopy, with reflex to culture (05/05/2019 7:22 PM CDT) Specimen site Clean catch [facility] Color, UA Straw [facility] Appearance, UA Clear [facility] Specific 1.013 1.001 - 1.035 [place] gravity, [facility] [place] pH, UA 6.0 5.0 - 8.5 [facility] Protein, UA Negative Negative [facility] Glucose, UA Negative Negative [facility] Ketones, UA Negative Negative [facility] Bilirubin, UA Negative Negative [facility] Blood, UA Negative Negative [facility] Nitrite, UA Negative Negative [facility] Urobilinogen, <2.0 <2.0 [facility] Leukocyte Negative Negative [place] esterase, [facility] [place] Epithelial <1 /HPF [place] cells, [facility], [place] WBC, UA None seen 0 - 1 /HPF [facility] RBC, UA <1 0 - 5 /HPF [facility] Bacteria, UA None seen None seen [facility] Yeast, UA None seen [facility] Yeast with None seen [place] [facility] Hyaline casts, 12 /LPF [facility] Specimen Urine Performing Organization Address City/State/Zipcode Phone Number [facility] DEPARTMENT OF [address] [place] [address] PATHOLOGY AND GENOMIC MEDICINE [id number] [place] [address] * Hemoglobin & hematocrit (05/05/2019 7:22 PM CDT) HGB 13.5 (L) 14.0 - 18.0 g/dL [facility] HCT 43.2 41.0 - 51.0 % [facility] Specimen Blood Performing Organization Address City/State/Zipcode Phone Number [facility] [place] [address] PATHOLOGY AND GENOMIC MEDICINE [address] * Urine drugs of abuse screen (05/05/2019 7:22 PM CDT) Pathologist [facility] Amphetamine Negative [place] screen, urine [facility] Barbiturate Negative [place] screen, urine [facility] Benzodiazepine Negative [place] screen, urine [facility] Cocaine screen, Negative [place] urine [facility] Methadone Negative [place] metabolite [facility] (EDDP), urine [facility] Opiates screen, Positive (A) [place] urine [facility] Oxycodone Negative [place] screen, urine [facility] Phencyclidine Negative [place] screen, urine [facility] Tricyclic Negative [place] screen, urine [facility] Cannabinoid Negative [place] screen, urine Comment: [facility] Drug screen minimum HOSPITAL concentration of detectability [...] is required. Specimen Urine Performing Organization Address [facility] Centercode Phone Number [facility] [place] [address] PATHOLOGY AND GENOMIC MEDICINE [address] * Urine culture (05/05/2019 7:22 PM CDT) [facility] Urine culture SEE COMMENTComment: [place] Bacteriuria screen negative. [facility] Specimen Performing Organization Address [facility]/Zipcode Phone Number [facility] [place] [address] PATHOLOGY AND GENOMIC MEDICINE [address] * XR Chest 1 Vw Portable [...] There is hardware in the cervical spine. [facility]-[id number] Procedure Note Interface, Radiology Results Incoming - 05/05/2019 7:09 PM CDT EXAMINATION: XR CHEST 1 VW PORTABLE CLINICAL HISTORY: SOB COMPARISON: None IMPRESSION: Heart size and pulmonary vasculature are normal. There is linear atelectasis in the left lower lung zone. No focal infiltrate, effusion or pneumothorax seen. There are spondylotic changes in the spine. There is hardware in the cervical spine. [id number] Performing Organization Address City/State/Zipcode Phone Number [facility] [address] [place] [address] * CT Head Wo Contrast (05/05/2019 6:21 [...] No CT evidence of acute intracranial abnormality. [id number] Procedure Note Interface, Radiology Results Incoming - [...] No CT evidence of acute intracranial abnormality. [id number] Performing Organization Address City/[facility]/Zipcode Phone Number [facility] [address] [place] [id number] * Type and screen (05/05/2019 3:33 PM CDT) ABO grouping O [facility] Rh type POS [facility] Antibody screen NEG [place] (gel) [facility] Specimen Blood Performing Organization Address City/[facility]/Zipcode Phone Number [facility] DEPARTMENT OF [address] [place] [address] PATHOLOGY AND GENOMIC MEDICINE [address] * ECG 12 lead (05/05/2019 3:25 PM CDT) Ventricular 88 [facility] MUSE rate Atrial rate 340 [facility] QRSD interval 104 [facility] QT interval 368 [facility] QTC interval 445 [facility] MUSE QRS axis 1 -23 [facility] MUSE T wave axis 39 [facility] MUSE EKG impression Atrial fibrillation-Abnormal [facility] MUSE ECG-- Specimen Narrative Performed At Performing Organization Address [facility] Centercode Phone Number [facility] MUSE [address] [place] [address] * ECG ED Preliminary Interpretation - Not an Order (05/05/2019 3:19 PM CDT) Narrative Performed At Eunice Reyes MD 05/05/20199:37 PM ECG ED Preliminary Interpretation - Not an Order Performed by: Eunice Reyes MD Authorized by: Eunice Reyes MD ECG reviewed by ED Physician in the absence of a production crew supervisor: yes Interpretation: Interpretation: abnormal Rate: ECG rate:88 [...] nerve damage and pneumothorax Alternatives discussed:Alternative treatment [place] protocol: Procedure explained and questions answered to [...] MEDICARE HUMANA xxxxxxxxx 2019-P MEDICARE resent PPO/PFFS/[facility] Advance Directives Patient has advance care planning documents on file. For more information, marcella howell contact: Juan Pablo Colbert [address] [place] [address]
--- OUTSIDE RECORDS SUMMARY | 2019-05-26 16:54 | XMS REPORT | Continuity of Care Document ---
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 11/20/2017 [facility] M54.9 DORSALGIA, UNSPECIFIED G95.9 DISE Active 06/12/2016 [facility] 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, UNSPECIFIE Active 04/04/2016 [facility] DX: M54.4=LUMBAGO WITH SCIATICA, UNSPECI Active 03/26/2016 [facility] R53.1 - WEAKNESS Active 03/18/2016 [facility] [place] Spinal stenosis, lumbar region without neurogenic claudication 03/12/2018 [facility] Spinal stenosis, cervical region 03/12/2018 [facility] Spinal stenosis, cervicothoracic region 03/12/2018 [facility]ib [facility] [place] [place] Arthritis Resolved Problem 05/26/2019 [facility], [facility] [place] Arthropathy Resolved Problem 05/26/2019 [facility], [facility] [place] Atrial fibrillation and flutter Resolved Problem 05/26/2019 [facility], [facility] [place] Backache Resolved Problem 05/26/2019 [facility], [facility] [place] Benign prostatic hyperplasia with lower urinary tract symptoms Resolved Problem 05/26/2019 [facility], [facility] [place] Bronchitis Resolved Problem 05/26/2019 [facility], [facility] [place] Cataract Resolved Problem 05/26/2019 [facility], [facility] [place] Chronic kidney disease (Confirmed) Resolved Problem 05/26/2019 [facility], [facility] [place] COPD Resolved Problem 05/26/2019 [facility], [facility] [place] Diabetes mellitus type 1 Resolved Problem 05/26/2019 [facility], [facility] [place] Diabetes Resolved Problem 05/26/2019 [facility], [facility] [place] Glaucoma Resolved Problem 05/26/2019 [facility], [facility] [place] Gout Resolved Problem 05/26/2019 [facility], [facility] [place] Hypertension Resolved Problem 05/26/2019 [facility], [facility] [place] Impotence, organic Resolved Problem 05/26/2019 [facility], [facility] [place] Urinary frequency Resolved Problem 05/26/2019 [facility], [facility] [place] Mumps Resolved Problem 05/26/2019 [facility], [facility] [place] Neuropathy Resolved Problem 05/26/2019 [facility], [facility] [place] Nocturia Resolved Problem 05/26/2019 [facility], [facility] [place] Obesity Active Problem 05/26/2019 [facility], [facility] [place] Peripheral vascular disease Resolved Problem 05/26/2019 [facility], [facility] [place] Seborrheic dermatitis Resolved Problem 05/26/2019 [facility], [facility] [place] Sleep apnea Resolved Problem 05/26/2019 [facility], [facility] [place] Urgency of urination Resolved Problem 05/26/2019 [facility], [facility] [place] Other specified urinary incontinence Resolved Problem 05/26/2019 [facility], [facility] [place] UTI (Confirmed) Resolved Problem 05/26/2019 [facility], [facility] [place] Vertigo Resolved Problem 05/26/2019 [facility], [facility] [place] CHF Active Problem 05/04/2019 [facility] COPD exacerbation Active Problem 05/04/2019 [facility] Chronic renal insufficiency Active Problem 05/04/2019 [facility] Cirrhosis Active Problem 05/04/2019 [facility] Hemoptysis Active Problem 05/04/2019 [facility] Pedal edema Active Problem 05/04/2019 [facility] Pneumonia Active Problem 05/04/2019 [facility] Cellulitis of both lower extremities Active Problem 05/04/2019 [facility] Hypokalemia Active Problem 05/04/2019 [facility] DORSALGIA, UNSPECIFIED Active [facility] DISEASE OF SPINAL CORD, UNSPECIFIED Active [facility] Medications Medication Details Route Status Patient Instructions Ordering Provider Order Date Source Levofloxacin 500 MG Oral Tablet [Levaquin] 500 mg=1 tab, PO, Q24H, X 7 day, # 7 tab, 0 Refill(s), [id number]18[facility] Bumetanide 1 Mg Tablet Twice A Day Active [place] 05/04/2019 [facility] Lidocaine Patch 1 Ea Patch Q24h Active [place] 05/04/2019 [facility] Metolazone 5 Mg Tablet Daily Active [place] 05/04/2019 [facility] Tamsulosin Hcl (Flomax*) 0.4 Mg Cap Bedtime Active [place] 05/04/2019 [facility] Bumetanide 2 Mg Tablet, 2 Mg Oral Twice A Day Active 05/04/2019 [facility] Carisoprodol (Soma) 350 Mg Tablet, 350 Mg Oral Daily as needed for Pain Active 04/23/2019 [facility] Cholecalciferol (Vitamin D3) (Vitamin D3) 2,000 Unit Capsule, 6000 Units Oral Bedtime Active 04/23/2019 [facility] Cosentyx , 150 Mg Active 04/23/2019 [facility] Folic Acid 1 Mg Tablet, 400 Mcg Oral Twice A Day Active 04/23/2019 [facility] Guaifenesin (Mucus Relief) 400 Mg Tablet, 400 Mg Oral Twice A Day Active 04/23/2019 [facility] Hydromorphone Hcl 2 Mg Tablet, 8 Mg Oral As Needed as needed for Prn Active 04/23/2019 [facility] Metolazone 5 Mg Tablet, 5 Mg Oral Active 04/23/2019 [facility] Pantoprazole Sodium (Protonix) 40 Mg Tablet.dr, 40 Mg Oral Bedtime Active 04/23/2019 [facility] Sodium Chloride For Inhalation (Hyper-Lamine) 4 Ml Vial.neb, 7 % Inhalation Daily as needed for Nasal Congestion Active 04/23/2019 [facility] Spironolact/Hydrochlorothiazid (Aldactazide 50-50 Tablet) 1 Each Tablet, 1 Tab Oral Daily Active 04/23/2019 [facility] Vitamin B12 , 84614 Mcg Oral Use As Directed Active 04/23/2019 [facility] allopurinol 300 mg oral tablet 300 mg=1 tab, PO, Daily, # 90 tab, 1 Refill(s) Active 04/19/2019 [facility] methenamine hippurate 1 gm, PO, Daily, 0 Refill(s) Active 04/19/2019 [facility] Dulcolax Laxative =1 supp, HI, Daily, PRN constipation, # 5 supp, 0 Refill(s) Active 04/19/2019 [facility] Colchicine 0.6 mg, PO, Daily, 0 Refill(s) Active 04/19/2019 [facility] Sucralfate (Carafate) 1 Gm Tablet Before Meals Active [place] 02/15/2019 [facility] Clindamycin Hcl 300 Mg Capsule, 300 Mg Oral Three Times A Day Active 02/15/2019 [facility] Bumex Twice A Day Active [place] 01/09/2019 [facility] Potassium Chloride (K-Dur) 20 Meq Tab.er.prt, 20 Meq Oral Every 12 Hours Active 01/09/2019 [facility] Prednisone 10 Mg Tab, 30 Mg Oral Daily Active 12/30/2018 [facility] Prednisone 20 Mg Tab, 20 Mg Oral Daily Active 12/30/2018 [facility] Prednisone 10 Mg Tab, 10 Mg Oral Daily Active 12/30/2018 [facility] Albuterol Sulfate (Proair Hfa Inhaler*) 8.5 Gm Inh, 3 Inh Active 12/11/2018 [facility] Alclometasone Dipropionate 15 Gm Cream..g., 1 Applic Topically Daily Active 12/11/2018 [facility] Albuterol Sulfate (Proair Hfa Inhaler*) 8.5 Gm Inh, 2 Inh Inhalation Daily Active 12/07/2018 [facility] Clobetasol Propionate 1 Ea/15 Gm Cr, 1 Applic Topically Daily Active 12/07/2018 [facility] Mirabegron (Myrbetriq) 50 Mg Tab.er.24h, 50 Mg Oral Every Morning Active 12/07/2018 [facility] Rapatha Injection , 140 Mg Intramusc Use As Directed Active 12/07/2018 [facility] Spironolactone (Aldactone) 50 Mg Tablet, 50 Mg Oral As Needed Active 12/07/2018 [facility] Fosfomycin 33.3 MG/ML Oral Suspension [Monurol] =1 Pack, PO, ONCE, # 3 gm, 0 Refill(s), Pharmacy: [facility] [id number] Active 12/03/2018 [facility] 24 HR mirabegron 50 MG Extended Release Tablet [Myrbetriq] See Instructions, TAKE 1 TABLET BY MOUTH EVERY DAY, # 90 tab, 0 Refill(s), Pharmacy: [facility] [id number], please have patient call for appt prior to next refill Active 11/05/2018 [facility] Folic Acid 1 Mg Tablet, 1 Mg Oral Twice A Day Active 11/05/2018 [facility] Warfarin Sodium 3 Mg Tablet, 3 Mg Oral Daily Active 11/05/2018 [facility] Azithromycin (Zithromax) 500 Mg Tablet, 500 Mg Oral Daily Active [place] 09/16/2018 [facility] Sulfamethoxazole/Trimethoprim (Bactrim Ds Tablet) 1 Each Tablet, 1 Each Oral Twice A Day Active [place] 09/16/2018 [facility] Albuterol Sulf (Proventil 0.083% Neb) 3 Ml Nebu, 3 Ml Inhalation Every 12 Hours Active 09/13/2018 [facility] Albuterol Sulfate (Proair Hfa Inhaler*) 8.5 Gm Inh, 1 Inh Inhalation Three Times A Day Active 09/13/2018 [facility] Albuterol Sulfate (Proair Hfa Inhaler*) 8.5 Gm Inh, Active 09/13/2018 [facility] Cyanocobalamin (Vitamin B-12) (Vitamin B-12) 2,000 Mcg Tablet.er, 2000 Mcg Weekly Active 09/13/2018 [facility] Duloxetine Hcl (Cymbalta) 30 Mg Capsule.dr, 60 Mg Oral Bedtime Active 09/13/2018 [facility] Fe Fumarate/Vit C/B12-If/Fa (Ferocon Capsule) 1 Each Capsule, 1 Cap Oral Daily Active 09/13/2018 [facility] Formoterol Fumarate (Perforomist) 20 Mcg/2 Ml Vial.neb, 20 Mcg Inhalation Daily Active 09/13/2018 [facility] Liraglutide (Victoza 3-Asad) 0.6 Mg/0.1 Ml Pen.injctr, 1.8 Mg Injection Every Morning Active 09/13/2018 [facility] Laurier-3/Dha/Epa/Fish Oil (Fish Oil Laurier-3 Softgel) 1 Each Capsule., 1 Tab Oral Twice A Day Active 09/13/2018 [facility] Repaglinide (Prandin) 1 Mg Tab, 0.5 Tab Oral As Needed Active 09/13/2018 [facility] Tamsulosin Hcl 0.4 Mg Cap.er.24h, 0.8 Mg Oral Every 12 Hours Active 09/13/2018 [facility] Testoterone , 1 Ml Active 09/13/2018 [facility] Metoprolol Tartrate (Lopressor) 25 Mg Tab Every 12 Hours Active [place] 06/11/2017 [facility] Azithromycin (Z-Asad) 250 Mg Tablet, 500 Mg Oral Daily Active [place] 06/11/2017 [facility] Docusate Sodium (Colace) 100 Mg Capsule, 100 Mg Oral Three Times A Day Active [place] 06/11/2017 [facility] Furosemide 40 Mg Tablet, 80 Mg Oral Bid@06,18 Active [place] 06/11/2017 [facility] Metoprolol Tartrate 25 Mg Tablet, 12.5 Mg Oral Twice A Day Active 06/11/2017 [facility] Polyethylene Glycol 3350 (Miralax) 17 Gm Powd.pack, 17 Gm Oral Twice A Day Active [place] 06/11/2017 [facility] Prednisone 20 Mg Tab, 40 Mg Oral Daily Active [place] 06/11/2017 [facility] Warfarin Sodium (Coumadin) 5 Mg Tablet, 5 Mg Oral Daily At 1700 Active [place] 06/11/2017 [facility] Warfarin Sodium (Coumadin) 5 Mg Tablet, 3 Mg Oral Today At 5:00PM Active 06/11/2017 [facility] Furosemide (Lasix) 40 Mg Tablet, 2 Mg Oral Twice A Day Active 06/04/2017 [facility] Furosemide (Lasix) 40 Mg Tablet, 80 Mg Oral Twice A Day Active 06/04/2017 [facility] Ibuprofen 400 Mg Tablet, 600 Mg Oral Every 6 Hours as needed for Pain Active 06/04/2017 [facility] Mucas , 400 Mcg Oral Twice A Day Active 06/04/2017 [facility] Servent Disk , 50 Mcg Inhalation Twice A Day Active 06/04/2017 [facility] Warfarin Sodium (Coumadin) 5 Mg Tablet, 3 Mg Oral Today At 5:00PM Active 06/04/2017 [facility] Warfarin Sodium (Coumadin) 2 Mg Tablet, 2 Mg Oral Daily Active 06/04/2017 [facility] Warfarin Sodium (Coumadin) 2.5 Mg Tablet, 2.5 Mg Oral Daily Active 06/04/2017 [facility] Warfarin Sodium (Coumadin) 5 Mg Tablet, 5 Mg Oral Today At 5:00PM Active 06/04/2017 [facility] Aspirin 325 Mg Tablet, 81 Mg Oral Daily Active 05/07/2017 [facility] Bupivacaine Hcl (Marcaine) 2.5 Mg/1 Ml Vial, 1.143 Mg Daily Active 05/07/2017 [facility] Carisoprodol 350 Mg Tablet, 350 Mg Oral as needed Active 05/07/2017 [facility] Fenofibric Acid (Choline) (Trilipix) 135 Mg Capsule., 135 Mg Oral Daily Active 05/07/2017 [facility] Hydrocodone Bit/Acetaminophen (Hydrocodone-Apap 10-325 Mg Tab) 1 Each Tablet, 1 Each Oral as needed Active 05/07/2017 [facility] Hydrocodone Bit/Acetaminophen (Hydrocodon-Acetaminophn 10-325) 1 Each Tablet, 10 Mg Oral As Needed Active 05/07/2017 [facility] Latanoprost 2.5 Ml Drops, 2.5 Ml Ophthalmic Daily Active 05/07/2017 [facility] Linagliptin (Tradjenta) 5 Mg Tablet, 5 Mg Oral Daily Active 05/07/2017 [facility] Morphine Pump , 12.7 Mg Daily Active 05/07/2017 [facility] Multivitamin (Multivitamins) 1 Each Tab.chew, Oral Daily Active 05/07/2017 [facility] Omeprazole 40 Mg Capsule., 40 Mg Oral Daily Active 05/07/2017 [facility] Polyethylene Glycol 3350 (Clearlax) 17 Gm Powd.pack, As Needed Active 05/07/2017 [facility] Testosterone (Testopel) 75 Mg Pellet.ea., 75 Mg Active 05/07/2017 [facility] Torsemide 20 Mg Tablet, 20 Mg Oral Twice A Day Active 05/07/2017 [facility] Zolpidem Tartrate (Ambien) 10 Mg Tablet, 10 Mg Oral Bedtime Active 05/07/2017 [facility] Axiron , 30 Mg Daily Active 09/01/2013 [facility] Caltrate +D , Oral Twice A Day Active 09/01/2013 [facility] Furosemide 40 Mg Tablet, 40 Mg Oral Daily Active 09/01/2013 [facility] Marcaine , Daily Active 09/01/2013 [facility] Morphine Pump , Daily Active 09/01/2013 [facility] Zolpidem Tartrate (Ambien Cr) 12.5 Mg Tab.mphase, 12.5 Mg Oral Daily Active 09/01/2013 [facility] Aclometasone 0.05% 1 Each Daily Active [facility] Albuterol Sulfate 0.63 Mg/3 Ml Vial.neb Twice A Day Active [facility] Albuterol Sulfate (Proair Hfa Inhaler*) 8.5 Gm Inh Daily Active PATIENT TAKES 3-5 PUFFS INHALATION [facility] Alprazolam 0.5 Mg Tab.rapdis As Needed Active [facility] Aspirin (Aspir 81) 81 Mg Tablet.dr Daily Active [facility] Baclofen 10 Mg Tablet Three Times A Day Active [facility] Budesonide 0.5 Mg/2 Ml Ampul.neb Twice A Day Active [facility] Carisoprodol (Soma) 350 Mg Tablet Daily as needed for Pain Active [facility] Cholecalciferol (Vitamin D3) (Vitamin D3) 2,000 Unit Capsule Bedtime Active [facility] Clobetasol Propionate 1 Ea/15 Gm Cr Daily Active [facility] Clopidogrel Bisulfate (Clopidogrel) 75 Mg Tablet Daily Active [facility] Cosentyx Qmonth Active [facility] Dilaudid Pain Pump Use As Directed Active DILAUDID 6.225MG AND 0.9773MG MARCAINE DAILY DELIVERED BY PAIN PUMP [facility] Fe Fumarate/Vit C/B12-If/Fa (Ferocon Capsule) 1 Each Capsule Daily Active [facility] Folic Acid 1 Mg Tablet Twice A Day Active [facility] Guaifenesin (Mucus Relief) 400 Mg Tablet Twice A Day Active [facility] Hydromorphone Hcl 2 Mg Tablet As Needed as needed for Prn Active [facility] Latanoprost 2.5 Ml Drops Bedtime Active [facility] Levothyroxine Sodium 50 Mcg Tablet Daily Active [facility] Liothyronine Sodium 5 Mcg Tablet Every Morning Active [facility] Mirabegron (Myrbetriq) 50 Mg Tab.er.24h Daily Active [facility] Pantoprazole Sodium (Protonix) 40 Mg Tablet. Bedtime Active [facility] Pramipexole Di-Hcl (Pramipexole Dihydrochloride) 0.25 Mg Tablet Bedtime Active [facility] Psyllium Husk (Wal-Mucil) 0.52 Gm Capsule Daily Active [facility] Rapatha Injection Use As Directed Active PATIENT TAKES EVERY 2 WEEKS [facility] Rivaroxaban (Xarelto) 10 Mg Tablet Bedtime Active [facility] Ropinirole Hcl 0.25 Mg Tablet Bedtime Active [facility] Sertraline Hcl 50 Mg Tablet Bedtime Active [facility] Sodium Chloride For Inhalation (Hyper-Lamine) 4 Ml Vial.neb Daily as needed for Nasal Congestion Active [facility] Spironolact/Hydrochlorothiazid (Aldactazide 50-50 Tablet) 1 Each Tablet Daily Active [facility] Testosterone Cypionate 200 Mg/1 Ml Vial Active every 2 weeks [facility] Vitamin B12 Use As Directed Active ONCE A WEEK [facility] Aclovate Daily Active [facility] Alprazolam 0.5 Mg Tablet As Needed Active [facility] Bumetanide 2 Mg Tablet Twice A Day Active [facility] Cosentyx 150 Mg .monthly Active [facility] Hydromorphone/Bupiv/0.9NACL/Pf (Hydromor-Bupiva 10 Mcg-0.0625%) 100 Ml Pump.resvr Daily Active [facility] Metolazone 5 Mg Tablet Active TAKE 30 MINUTES PRIOR TO BUMEX DOSE [facility] Rivaroxaban (Xarelto) 15 Mg Tablet Daily Active [facility] Alcometasone Daily Active [facility] Allopurinol 300 Mg Tablet Bedtime Active [facility] Potassium Chloride 20 Meq Tab.er.prt Twice A Day Active [facility] Allergies, Adverse Reactions, Alerts Substance Category Reaction Severity Reaction type Status Date Reported Comments Source No Known Drug Allergies Unknown Allergy to Substance Active 02/08/2019 [facility] No Known Medication Allergies Assertion Drug allergy [facility] Immunizations No Data Provided for This Section Results Order Name Results Value Reference Range Date Interpretation Comments Source URINE AND STOOL POC UA Bld Trace *NA* (05/18/19 12:35 PM) Negative 05/18/2019 [facility] URINE AND STOOL POC UA Bili Negative *NA* (05/18/19 12:35 PM) Negative 05/18/2019 [facility] URINE AND STOOL POC UA Ket Negative mg/dL Negative mg/dL 05/18/2019 [facility] URINE AND STOOL POC UA Uro 0.2 0.1 - 1.0 05/18/2019 [facility] URINE AND STOOL POC UA Nit Positive *ABN* (05/18/19 12:35 PM) Negative 05/18/2019 [facility] URINE AND STOOL POC UA LeukEst Small *ABN* (05/18/19 12:35 PM) Negative 05/18/2019 [facility] URINE AND STOOL POC UA Color Yellow *NA* (05/18/19 12:35 PM) Yellow 05/18/2019 [facility] URINE AND STOOL POC UA Turbidity Clear *NA* (05/18/19 12:35 PM) Clear 05/18/2019 [facility] URINE AND STOOL POC UA SG 1.015 <=1.030 05/18/2019 [facility] URINE AND STOOL POC UA Glu Negative mg/dL Negative mg/dL 05/18/2019 [facility] URINE AND STOOL POC UA pH 6.5 5.0 - 8.0 05/18/2019 [facility] URINE AND STOOL POC UA Prot Negative mg/dL Negative mg/dL 05/18/2019 [facility] Capillary blood glucose measurement by glucometer (mass/volume) 126 70 - 120 05/04/2019 [facility] Blood leukocytes automated count (number/volume) 10.03 4.8 - 10.8 05/04/2019 [facility] Blood erythrocytes automated count (number/volume) 5.79 4.3 - 5.7 05/04/2019 [facility] Blood hemoglobin measurement (moles/volume) 16.2 14.0 - 18.0 05/04/2019 [facility] Automated blood hematocrit (volume fraction) 51.0 38.2 - 49.6 05/04/2019 [facility] Automated erythrocyte mean corpuscular volume 88.1 81 - 99 05/04/2019 [facility] Automated erythrocyte mean corpuscular hemoglobin (mass per erythrocyte) 28.0 28 - 32 05/04/2019 [facility] Automated erythrocyte mean corpuscular hemoglobin concentration measurement (mass/volume) 31.8 31 - 35 05/04/2019 [facility] RDW BldCo-Rto 14.8 11.7 - 14.4 05/04/2019 [facility] Automated blood platelet count (count/volume) 292 140 - 360 05/04/2019 [facility] Automated blood segmented neutrophil count as percentage of total leukocytes 77.1 38.7 - 80.0 05/04/2019 [facility] Automated blood lymphocyte count as percentage ot total leukocytes 14.1 18.0 - 39.1 05/04/2019 [facility] Automated blood monocyte count as percentage of total leukocytes 8.2 4.4 - 11.3 05/04/2019 [facility] Automated blood eosinophil count as percentage of total leukocytes 0.0 0.0 - 6.0 05/04/2019 [facility] Automated blood basophil count as percentage of total leukocytes 0.1 0.0 - 1.0 05/04/2019 [facility] IM GRANULOCYTES % 0.5 0.0 - 1.0 05/04/2019 [facility] Automated blood neutrophil count 7.7 2.1 - 6.9 05/04/2019 [facility] Blood lymphocytes count (number/volume) 1.4 1.0 - 3.2 05/04/2019 [facility] Blood monocytes automated count (number/volume) 0.8 0.2 - 0.8 05/04/2019 [facility] Automated blood eosinophil count 0.0 0.0 - 0.4 05/04/2019 [facility] Automated blood basophil count (count/volume) 0.0 0.0 - 0.1 05/04/2019 [facility] Absolute Immature Granulocyte (auto 0.05 0 - 0.1 05/04/2019 [facility] Serum or plasma sodium measurement (moles/volume) 138 136 - 145 05/04/2019 [facility] Serum or plasma potassium measurement (moles/volume) 3.5 3.5 - 5.1 05/04/2019 [facility] Serum or plasma chloride measurement (moles/volume) 81 98 - 107 05/04/2019 [facility] Serum or plasma carbon dioxide, total measurement (moles/volume) 43 22 - 29 05/04/2019 [facility] Serum or plasma anion gap 17.5 8 - 16 05/04/2019 [facility] Serum or plasma urea nitrogen measurement (mass/volume) 95 7 - 26 05/04/2019 [facility] Serum or plasma creatinine measurement (mass/volume) 2.57 0.72 - 1.25 05/04/2019 [facility] Serum or plasma urea nitrogen/creatinine mass ratio 37 6 - 25 05/04/2019 [facility] Estimated glomerular filtration rate (GFR) determination 25 60 05/04/2019 [facility] Glucose measurement 120 74 - 118 05/04/2019 [facility] Serum or plasma calcium measurement (mass/volume) 10.2 8.4 - 10.2 05/04/2019 [facility] Serum or plasma magnesium measurement (mass/volume) 3.1 1.3 - 2.1 05/04/2019 [facility] BNP Bld-mCnc 175.1 0 - 100 05/04/2019 [facility] Serum or plasma uric acid measurement (mass/volume) 8.3 4.8 - 8.0 04/30/2019 [facility] Blood culture NO GROWTH AFTER 72 HOURS 04/30/2019 [facility] Hemoglobin A1c Percent 5.6 4.0 - 7.0 04/25/2019 [facility] Serum or plasma creatine kinase measurement (enzymatic activity/volume) 73 30 - 200 04/24/2019 [facility] Serum or plasma creatine kinase MB measurement (mass/volume) 2.50 0 - 5.0 04/24/2019 [facility] Troponin I measurement by highly sensitive enzyme immunoassay < 0.001 0 - 0.300 04/24/2019 [facility] Serum or plasma total bilirubin measurement (mass/volume) 0.5 0.2 - 1.2 04/24/2019 [facility] Aspartate Amino Transf (AST/SGOT) 16 5 - 34 04/24/2019 [facility] Serum or plasma alanine aminotransferase measurement (enzymatic activity/volume) 13 0 - 55 04/24/2019 [facility] Serum or plasma protein measurement (mass/volume) 6.3 6.5 - 8.1 04/24/2019 [facility] Serum or plasma albumin measurement (mass/volume) 3.4 3.5 - 5.0 04/24/2019 [facility] Plasma globulin measurement (mass/volume) 2.9 2.3 - 3.5 04/24/2019 [facility] Serum or plasma albumin/globulin mass ratio 1.2 0.8 - 2.0 04/24/2019 [facility] Serum or plasma alkaline phosphatase measurement (enzymatic activity/volume) 87 40 - 150 04/24/2019 [facility] Prothrombin time (PT) in platelet poor plasma by coagulation assay 13.7 11.9 - 14.5 04/23/2019 [facility] INR in Platelet poor plasma by Coagulation assay 1.00 04/23/2019 [facility] Activated partial thromboplastin time (aPTT) in platelet poor plasma bycoagulation assay 35.8 23.8 - 35.5 04/23/2019 [facility] Urine color determination YELLOW YELLOW 04/23/2019 [facility] Urine clarity CLEAR CLEAR 04/23/2019 [facility] Specific gravity of Urine by Test strip 1.010 1.010 - 1.025 04/23/2019 [facility] Urine pH measurement by automated test strip 6 5 - 7 04/23/2019 [facility] Urine leukocyte esterase detection by automated test strip NEGATIVE NEGATIVE 04/23/2019 [facility] Urine nitrite detection by automated test strip NEGATIVE NEGATIVE 04/23/2019 [facility] Urine protein detection by automated test strip NEGATIVE NEGATIVE 04/23/2019 [facility] Urine glucose detection by automated test strip NEGATIVE NEGATIVE 04/23/2019 [facility] Urine ketones detection by automated test strip NEGATIVE NEGATIVE 04/23/2019 [facility] Urine urobilinogen measurement by test strip (mass/volume) 0.2 0.2 - 1 04/23/2019 [facility] Urine total bilirubin detection NEGATIVE NEGATIVE 04/23/2019 [facility] Urine erythrocytes detection NEGATIVE NEGATIVE 04/23/2019 [facility] Automated urine sediment leukocyte count by microscopy (number/high power field) 6-10 0 - 5 04/23/2019 [facility] Erythrocytes detection in urine sediment by light microscopy NONE 0 - 5 04/23/2019 [facility] Bacteria detection in urine sediment by light microscopy MODERATE NONE 04/23/2019 [facility] Epithelial cells detection in urine sediment by light microscopy FEW NONE 04/23/2019 [facility] Hyaline casts detection in urine sediment by light microscopy 0-1 0 - 1 04/23/2019 [facility] Capillary blood glucose measurement by glucometer (mass/volume) 126 70 - 120 02/15/2019 [facility] Blood leukocytes automated count (number/volume) 8.88 4.8 - 10.8 02/15/2019 [facility] Blood erythrocytes automated count (number/volume) 6.03 4.3 - 5.7 02/15/2019 [facility] Blood hemoglobin measurement (moles/volume) 16.4 14.0 - 18.0 02/15/2019 [facility] Automated blood hematocrit (volume fraction) 54.5 38.2 - 49.6 02/15/2019 [facility] Automated erythrocyte mean corpuscular volume 90.4 81 - 99 02/15/2019 [facility] Automated erythrocyte mean corpuscular hemoglobin (mass per erythrocyte) 27.2 28 - 32 02/15/2019 [facility] Automated erythrocyte mean corpuscular hemoglobin concentration measurement (mass/volume) 30.1 31 - 35 02/15/2019 [facility] RDW BldCo-Rto 16.2 11.7 - 14.4 02/15/2019 [facility] Automated blood platelet count (count/volume) 293 140 - 360 02/15/2019 [facility] Automated blood segmented neutrophil count as percentage of total leukocytes 65.2 38.7 - 80.0 02/15/2019 [facility] Automated blood lymphocyte count as percentage ot total leukocytes 19.8 18.0 - 39.1 02/15/2019 [facility] Automated blood monocyte count as percentage of total leukocytes 11.4 4.4 - 11.3 02/15/2019 [facility] Automated blood eosinophil count as percentage of total leukocytes 2.1 0.0 - 6.0 02/15/2019 [facility] Automated blood basophil count as percentage of total leukocytes 1.0 0.0 - 1.0 02/15/2019 [facility] IM GRANULOCYTES % 0.5 0.0 - 1.0 02/15/2019 [facility] Automated blood neutrophil count 5.8 2.1 - 6.9 02/15/2019 [facility] Blood lymphocytes count (number/volume) 1.8 1.0 - 3.2 02/15/2019 [facility] Blood monocytes automated count (number/volume) 1.0 0.2 - 0.8 02/15/2019 [facility] Automated blood eosinophil count 0.2 0.0 - 0.4 02/15/2019 [facility] Automated blood basophil count (count/volume) 0.1 0.0 - 0.1 02/15/2019 [facility] Absolute Immature Granulocyte (auto 0.04 0 - 0.1 02/15/2019 [facility] Prothrombin time (PT) in platelet poor plasma by coagulation assay 13.4 11.9 - 14.5 02/15/2019 [facility] INR in Platelet poor plasma by Coagulation assay 0.97 02/15/2019 [facility] Activated partial thromboplastin time (aPTT) in platelet poor plasma bycoagulation assay 38.9 23.8 - 35.5 02/15/2019 [facility] Serum or plasma sodium measurement (moles/volume) 139 136 - 145 02/15/2019 [facility] Serum or plasma potassium measurement (moles/volume) 4.7 3.5 - 5.1 02/15/2019 [facility] Serum or plasma chloride measurement (moles/volume) 84 98 - 107 02/15/2019 [facility] Serum or plasma carbon dioxide, total measurement (moles/volume) 42 22 - 29 02/15/2019 [facility] Serum or plasma anion gap 17.7 8 - 16 02/15/2019 [facility] Serum or plasma urea nitrogen measurement (mass/volume) 68 7 - 26 02/15/2019 [facility] Serum or plasma creatinine measurement (mass/volume) 2.16 0.72 - 1.25 02/15/2019 [facility] Serum or plasma urea nitrogen/creatinine mass ratio 31 6 - 25 02/15/2019 [facility] Estimated glomerular filtration rate (GFR) determination 30 60 02/15/2019 [facility] Glucose measurement 140 74 - 118 02/15/2019 [facility] Serum or plasma calcium measurement (mass/volume) 10.4 8.4 - 10.2 02/15/2019 [facility] Serum or plasma magnesium measurement (mass/volume) 3.3 1.3 - 2.1 02/15/2019 [facility] BNP Bld-mCnc 91.6 0 - 100 02/15/2019 [facility] Hemoglobin A1c Percent 6.2 4.0 - 7.0 02/12/2019 [facility] Phosphorus measurement 3.5 2.3 - 4.7 02/12/2019 [facility] Serum or plasma thyroxine (T4) free measurement (mass/volume) 0.92 0.9 - 1.8 02/12/2019 [facility] Serum or plasma thyrotropin measurement by detection limit <=0.005 miu/l (units/volume) 1.875 0.350 - 4.940 02/12/2019 [facility] Phosphorus measurement 3.5 2.3 - 4.7 02/12/2019 [facility] Serum or plasma thyroxine (T4) free measurement (mass/volume) 0.92 0.9 - 1.8 02/12/2019 [facility] Serum or plasma thyrotropin measurement by detection limit <=0.005 miu/l (units/volume) 1.875 0.350 - 4.940 02/12/2019 [facility] Serum or plasma creatine kinase measurement (enzymatic activity/volume) 127 30 - 200 02/11/2019 [facility] Serum or plasma creatine kinase MB measurement (mass/volume) 2.50 0 - 5.0 02/11/2019 [facility] Troponin I measurement by highly sensitive enzyme immunoassay 0.017 0 - 0.300 02/11/2019 [facility] Serum or plasma total bilirubin measurement (mass/volume) 0.6 0.2 - 1.2 02/09/2019 [facility] Aspartate Amino Transf (AST/SGOT) 15 5 - 34 02/09/2019 [facility] Serum or plasma alanine aminotransferase measurement (enzymatic activity/volume) 10 0 - 55 02/09/2019 [facility] Serum or plasma protein measurement (mass/volume) 6.7 6.5 - 8.1 02/09/2019 [facility] Serum or plasma albumin measurement (mass/volume) 3.4 3.5 - 5.0 02/09/2019 [facility] Plasma globulin measurement (mass/volume) 3.3 2.3 - 3.5 02/09/2019 [facility] Serum or plasma albumin/globulin mass ratio 1.0 0.8 - 2.0 02/09/2019 [facility] Serum or plasma alkaline phosphatase measurement (enzymatic activity/volume) 78 40 - 150 02/09/2019 [facility] Urine color determination YELLOW YELLOW 02/08/2019 [facility] Urine clarity CLEAR CLEAR 02/08/2019 [facility] Specific gravity of Urine by Test strip 1.010 1.010 - 1.025 02/08/2019 [facility] Urine pH measurement by automated test strip 7 5 - 7 02/08/2019 [facility] Urine leukocyte esterase detection by dipstick NEGATIVE NEGATIVE 02/08/2019 [facility] Urine nitrite detection NEGATIVE NEGATIVE 02/08/2019 [facility] Urine protein measurement by test strip (mass/volume) NEGATIVE NEGATIVE 02/08/2019 [facility] Urine glucose detection NEGATIVE NEGATIVE 02/08/2019 [facility] Urine ketones detection by automated test strip NEGATIVE NEGATIVE 02/08/2019 [facility] Urine urobilinogen measurement by test strip (mass/volume) 0.2 0.2 - 1 02/08/2019 [facility] Urine total bilirubin measurement (mass/volume) NEGATIVE NEGATIVE 02/08/2019 [facility] Urine erythrocytes detection NEGATIVE NEGATIVE 02/08/2019 [facility] Automated urine sediment leukocyte count by microscopy (number/high power field) NONE 0 - 5 02/08/2019 [facility] Erythrocytes detection in urine sediment by light microscopy NONE 0 - 5 02/08/2019 [facility] Bacteria detection in urine sediment by light microscopy NONE NONE 02/08/2019 [facility] Epithelial cells detection in urine sediment by light microscopy RARE NONE 02/08/2019 [facility] Capillary blood glucose measurement by glucometer (mass/volume) 151 70 - 120 01/09/2019 [facility] Blood leukocytes automated count (number/volume) 8.53 4.8 - 10.8 01/09/2019 [facility] Blood erythrocytes automated count (number/volume) 6.08 4.3 - 5.7 01/09/2019 [facility] Blood hemoglobin measurement (moles/volume) 16.4 14.0 - 18.0 01/09/2019 [facility] Automated blood hematocrit (volume fraction) 54.7 38.2 - 49.6 01/09/2019 [facility] Automated erythrocyte mean corpuscular volume 90.0 81 - 99 01/09/2019 [facility] Automated erythrocyte mean corpuscular hemoglobin (mass per erythrocyte) 27.0 28 - 32 01/09/2019 [facility] Automated erythrocyte mean corpuscular hemoglobin concentration measurement (mass/volume) 30.0 31 - 35 01/09/2019 [facility] RDW BldCo-Rto 17.9 11.7 - 14.4 01/09/2019 [facility] Automated blood platelet count (count/volume) 220 140 - 360 01/09/2019 [facility] Automated blood segmented neutrophil count as percentage of total leukocytes 87.2 38.7 - 80.0 01/09/2019 [facility] Automated blood lymphocyte count as percentage ot total leukocytes 7.0 18.0 - 39.1 01/09/2019 [facility] Automated blood monocyte count as percentage of total leukocytes 4.6 4.4 - 11.3 01/09/2019 [facility] Automated blood eosinophil count as percentage of total leukocytes 0.0 0.0 - 6.0 01/09/2019 [facility] Automated blood basophil count as percentage of total leukocytes 0.1 0.0 - 1.0 01/09/2019 [facility] IM GRANULOCYTES % 1.1 0.0 - 1.0 01/09/2019 [facility] Automated blood neutrophil count 7.4 2.1 - 6.9 01/09/2019 [facility] Blood lymphocytes count (number/volume) 0.6 1.0 - 3.2 01/09/2019 [facility] Blood monocytes automated count (number/volume) 0.4 0.2 - 0.8 01/09/2019 [facility] Automated blood eosinophil count 0.0 0.0 - 0.4 01/09/2019 [facility] Automated blood basophil count (count/volume) 0.0 0.0 - 0.1 01/09/2019 [facility] Absolute Immature Granulocyte (auto 0.09 0 - 0.1 01/09/2019 [facility] Serum or plasma sodium measurement (moles/volume) 140 136 - 145 01/09/2019 [facility] Serum or plasma potassium measurement (moles/volume) 4.4 3.5 - 5.1 01/09/2019 [facility] Serum or plasma chloride measurement (moles/volume) 91 98 - 107 01/09/2019 [facility] Serum or plasma carbon dioxide, total measurement (moles/volume) 40 22 - 29 01/09/2019 [facility] Serum or plasma anion gap 13.4 8 - 16 01/09/2019 [facility] Serum or plasma urea nitrogen measurement (mass/volume) 33 7 - 26 01/09/2019 [facility] Serum or plasma creatinine measurement (mass/volume) 1.41 0.72 - 1.25 01/09/2019 [facility] Serum or plasma urea nitrogen/creatinine mass ratio 23 6 - 25 01/09/2019 [facility] Estimated glomerular filtration rate (GFR) determination 49 60 01/09/2019 [facility] Glucose measurement 154 74 - 118 01/09/2019 [facility] Serum or plasma calcium measurement (mass/volume) 8.8 8.4 - 10.2 01/09/2019 [facility] Serum or plasma magnesium measurement (mass/volume) 2.5 1.3 - 2.1 01/09/2019 [facility] BNP Bld-mCnc 381.1 0 - 100 01/09/2019 [facility] Differential Total Cells Counted 100 01/08/2019 [facility] Manual blood neutrophils/100 leukocytes 91 40 - 74 01/08/2019 [facility] Manual blood lymphocytes/100 leukocytes 6 19 - 48 01/08/2019 [facility] Manual blood monocytes/100 leukocytes 3 3.4 - 9.0 01/08/2019 [facility] Blood platelets count by estimate (number/volume) ADEQUATE 01/08/2019 [facility] Platelet morphology NORMAL 01/08/2019 [facility] RBC morphology NORMAL 01/08/2019 [facility] Differential Total Cells Counted 100 01/08/2019 [facility] Manual blood neutrophils/100 leukocytes 91 40 - 74 01/08/2019 [facility] Manual blood lymphocytes/100 leukocytes 6 19 - 48 01/08/2019 [facility] Manual blood monocytes/100 leukocytes 3 3.4 - 9.0 01/08/2019 [facility] Blood platelets count by estimate (number/volume) ADEQUATE 01/08/2019 [facility] Platelet morphology NORMAL 01/08/2019 [facility] RBC morphology NORMAL 01/08/2019 [facility] Urine color determination STRAW YELLOW 01/07/2019 [facility] Urine clarity CLEAR CLEAR 01/07/2019 [facility] Specific gravity of Urine by Test strip 1.010 1.010 - 1.025 01/07/2019 [facility] Urine pH measurement by automated test strip 6 5 - 7 01/07/2019 [facility] Urine leukocyte esterase detection by dipstick NEGATIVE NEGATIVE 01/07/2019 [facility] Urine nitrite detection NEGATIVE NEGATIVE 01/07/2019 [facility] Urine protein measurement by test strip (mass/volume) NEGATIVE NEGATIVE 01/07/2019 [facility] Urine glucose detection NEGATIVE NEGATIVE 01/07/2019 [facility] Urine ketones detection by automated test strip NEGATIVE NEGATIVE 01/07/2019 [facility] Urine urobilinogen measurement by test strip (mass/volume) 0.2 0.2 - 1 01/07/2019 [facility] Urine total bilirubin measurement (mass/volume) NEGATIVE NEGATIVE 01/07/2019 [facility] Urine erythrocytes detection NEGATIVE NEGATIVE 01/07/2019 [facility] Automated urine sediment leukocyte count by microscopy (number/high power field) 0-5 0 - 5 01/07/2019 [facility] Erythrocytes detection in urine sediment by light microscopy NONE 0 - 5 01/07/2019 [facility] Bacteria detection in urine sediment by light microscopy NONE NONE 01/07/2019 [facility] Epithelial cells detection in urine sediment by light microscopy MODERATE NONE 01/07/2019 [facility] Transitional cells detection in urine sediment by light microscopy RARE NONE 01/07/2019 [facility] Hyaline casts detection in urine sediment by light microscopy >15 0 - 1 01/07/2019 [facility] Transitional cells detection in urine sediment by light microscopy RARE NONE 01/07/2019 [facility] Hyaline casts detection in urine sediment by light microscopy >15 0 - 1 01/07/2019 [facility] [facility] Serum or plasma creatine kinase measurement (enzymatic activity/volume) 66 30 - 200 01/06/2019 [facility] Serum or plasma creatine kinase MB measurement (mass/volume) 2.50 0 - 5.0 01/06/2019 [facility] Troponin I measurement by highly sensitive enzyme immunoassay 0.005 0 - 0.300 01/06/2019 [facility] Hemoglobin A1c Percent 6.2 4.0 - 7.0 01/06/2019 [facility] Serum or plasma thyroxine (T4) free measurement (mass/volume) 0.76 0.9 - 1.8 01/06/2019 [facility] Serum or plasma thyrotropin measurement by detection limit <=0.005 miu/l (units/volume) 0.739 0.350 - 4.940 01/06/2019 [facility] Procalcitonin (PCT) level 0.07 0.00 - 0.08 01/06/2019 [facility] Procalcitonin (PCT) level 0.07 0.00 - 0.08 01/06/2019 [facility] Procalcitonin (PCT) level 0.07 0.00 - 0.08 01/06/2019 [facility] Arterial blood pH measurement 7.35 7.31 - 7.41 01/05/2019 [facility] pCO2 BldA 66 41 - 51 01/05/2019 [facility] pCO2 BldA 98 80 - 105 01/05/2019 [facility] Arterial blood bicarbonate measurement (moles/volume) 36 23 - 28 01/05/2019 [facility] Arterial blood base excess by calculation 10.0 -2 - 3 - 2 01/05/2019 [facility] Arterial blood oxygen saturation measurement 97.0 95 - 98 01/05/2019 [facility] FiO2 35 01/05/2019 [facility] pCO2 BldA 66 41 - 51 01/05/2019 [facility] pCO2 BldA 98 80 - 105 01/05/2019 [facility] Arterial blood bicarbonate measurement (moles/volume) 36 23 - 28 01/05/2019 [facility] Arterial blood base excess by calculation 10.0 -2 - 3 - 2 01/05/2019 [facility] Arterial blood oxygen saturation measurement 97.0 95 - 98 01/05/2019 [facility] FiO2 35 01/05/2019 [facility] FiO2 35 01/05/2019 [facility] Arterial blood pH measurement 7.35 7.31 - 7.41 01/05/2019 [facility] Prothrombin time (PT) in platelet poor plasma by coagulation assay 16.2 11.9 - 14.5 01/05/2019 [facility] INR in Platelet poor plasma by Coagulation assay 1.24 01/05/2019 [facility] Activated partial thromboplastin time (aPTT) in platelet poor plasma bycoagulation assay 38.8 23.8 - 35.5 01/05/2019 [facility] Lactic Acid Level 13.5 4.5 - 19.8 01/05/2019 [facility] Serum or plasma total bilirubin measurement (mass/volume) 0.6 0.2 - 1.2 01/05/2019 [facility] Aspartate Amino Transf (AST/SGOT) 17 5 - 34 01/05/2019 [facility] Serum or plasma alanine aminotransferase measurement (enzymatic activity/volume) 14 0 - 55 01/05/2019 [facility] Serum or plasma protein measurement (mass/volume) 6.6 6.5 - 8.1 01/05/2019 [facility] Serum or plasma albumin measurement (mass/volume) 3.5 3.5 - 5.0 01/05/2019 [facility] Plasma globulin measurement (mass/volume) 3.1 2.3 - 3.5 01/05/2019 [facility] Serum or plasma albumin/globulin mass ratio 1.1 0.8 - 2.0 01/05/2019 [facility] Serum or plasma alkaline phosphatase measurement (enzymatic activity/volume) 106 40 - 150 01/05/2019 [facility] Blood culture NO GROWTH AFTER 5 DAYS, FINAL REPORT 01/05/2019 [facility] Lactic Acid Level 13.5 4.5 - 19.8 01/05/2019 [facility] Lactic Acid Level 13.5 4.5 - 19.8 01/05/2019 [facility] Urine creatinine measurement (mass/volume) 48.99 63 - 166 12/12/2018 [facility] Random urine protein/creatinine ratio 0.41 12/12/2018 [facility] Random urine protein/creatinine ratio 0.41 12/12/2018 [facility] Urine protein measurement (mass/volume) 20.3 1 - 14 12/12/2018 [facility] Blood hypochromia detection by light microscopy SLIGHT 09/15/2018 [facility] Blood ovalocytes detection by light microscopy FEW 09/15/2018 [facility] Blood ovalocytes detection by light microscopy FEW 09/15/2018 [facility] Giant platelet detection FEW 09/15/2018 [facility] Phosphorus measurement 2.9 2.3 - 4.7 08/04/2018 [facility] Urine potassium measurement (moles/volume) 24.1 08/01/2018 [facility] CHEM PANEL eGFR 55 06/24/2016 Result Comment: [...] should be multiplied by the estimated BMI. [facility] CHEM PANEL POC Creatinine 1.3 0.5 - 1.4 06/24/2016 [facility] CHEM PANEL eGFR 55 04/10/2016 Result Comment: [...] should be multiplied by the estimated BMI. 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 Total exam BTS=1081 mGy-cm. Impression: 1. Unremarkable barium swallow esophagram [...] bilateral neural foraminal narrowing at L4-L5. SL: [id number] 12/04/2017 [facility] Spine cervical wo contrast MRI Study: Spine [...] foraminal narrowing, left greater than right. SL: [id number] 12/04/2017 [facility] bilat w pelvis and [...] the lower lumbar spine partially visualized. 04/23/2017 [facility] Thoracic w/wo contrast MRI EXAM: [...] nerve sheath tumor, or epidermoid cyst. SL: [id number] 06/24/2016 [facility] Spine lumbar w/wo contrast MRI Patient Name: STEVE BENEDICT : 1945; Age: 70 years y/o Male MR: [id number] Study: Spine lumbar w/wo contrast MRI 06/24/2016 9:25 AM CDT Ordering Physician: Fadi Daniel MD Clinical Indication: THORACIC MYELOPAHTY, LUMBAR MYELOPATHY AND CHRONIC BACK PAIN; Comparison: None TECHNIQUE: Multiplanar T1, T2, STIR weighted noncontrast MRI of the lumbar spine is performed on the 1.5 Amnia magnet. Post-contrast sequences were also obtained. Contrast: [...] compatible with acute on chronic denervation. SL: [id number] 06/24/2016 [facility] Spine thoracic wo contrast [...] No acute abnormalities are visualized. SL:16 06/19/2016 [facility] lumbar wo contrast CT CT THORACIC AND [...] 2. No acute fracture or malalignment. 04/23/2016 [facility] Spine Thoracic w/wo contrast MRI MRI [...] and multiple bilateral renal cysts. SL:16 04/10/2016 [facility] Spine lumbar w/wo contrast MRI EXAM: MRI [...] smoking and anemia among other etiologies. SL: [id number] 03/28/2016 [facility] Consultation Notes No Data Provided for This Section Discharge Summaries No Data Provided for This Section History and Physicals No Data Provided for This Section Vital Signs Vital Sign Value Date Comments Source BMI Calculated 34.5 04/19/2019 [facility] Height 175.26 cm 04/19/2019 [facility] Weight 105.966 04/19/2019 [facility] Encounters Location Location Details Encounter Type Encounter Number Reason For Visit Attending Provider ADM Date DC Date Status Source [facility] [place] [facility] [id number] Monique Reed 03/06/2016 03/07/2016 [facility] Outpatient [id number] Christopher Summers 03/28/2016 03/29/2016 [facility] [place] Out[facility] Di[facility] Services [id number] Angel Martínez 04/02/2016 04/03/2016 [facility] Outpatient [id number] Elida Valenzuela 04/10/2016 04/11/2016 [facility] [place] Out[facility] Diag Services [id number] Monique Reed 04/23/2016 04/24/2016 [facility] Outpatient [id number] FADI DANIEL 06/06/2016 [facility] Outpatient [id number] Fadi Daniel Jr 06/19/2016 06/20/2016 [facility] Outpatient [id number] Fadi Daniel Jr 06/24/2016 06/25/2016 [facility] Outpatient [id number] FADI FREDY 07/11/2016 Active [facility] Outpatient Imaging - [place] Outpt Diag Services [id number] Mila Jones 04/23/2017 04/24/2017 [facility] [place] [facility] Outpatient [id number] Oleksandr Marnidarreljeanine 12/05/2017 12/05/2017 [facility] Discharged Inpatient [id number] HAILEE HERNANDEZ MD 08/02/2018 08/05/2018 [facility] Discharged Inpatient [id number] ROSALIE MEDINA MD 09/13/2018 09/16/2018 [facility] Phone Message [id number] 11/04/2018 11/06/2018 [facility] Discharged Inpatient (obs) [id number] HAILEE HERNANDEZ MD 11/06/2018 11/07/2018 [facility] Outpatient [id number] [facility] 11/30/2018 Active [facility] [id number] HAILEE HERNANDEZ MD 12/08/2018 [facility] Discharged Inpatient [id number] ALINA PULIDO MD 12/13/2018 12/15/2018 [facility] Outpatient [id number] URODYNAMICS 12/16/2018 Active [facility] Outpatient [id number] [facility] 12/22/2018 Active [facility] Outpatient [facility] - [place] Outpt Diag Services [id number] Mila Jones 12/28/2018 12/29/2018 [facility] [place] Discharged Inpatient (obs) [id number] HAILEE HERNANDEZ MD 12/30/2018 12/31/2018 [facility] Discharged Inpatient [id number] ROSALIE MEDINA MD 01/05/2019 01/09/2019 [facility] Outpatient [id number] Kelechisom Sibley 02/02/2019 Active [facility] Discharged Inpatient [id number] ROSALIE MEDINA MD 02/08/2019 02/15/2019 [facility] Outpatient [id number] [facility] 04/19/2019 Active [facility] Outpatient [id number] [facility] 04/19/2019 04/20/2019 [facility] Outpatient [id number] NURSE VISIT 04/21/2019 Active [facility] Ambulatory Pre-Reg [id number] Christopher Summers 04/21/2019 04/21/2019 [facility] Discharged Inpatient [id number] ROSALIE MEDINA MD 04/23/2019 05/04/2019 [facility] Outpatient [id number] [facility] 05/04/2019 Active [facility] U[facility] Ambulatory Pre-Reg [id number] Christopher Summers 05/04/2019 05/04/2019 [facility] [id number] Kelechisom Sibley 05/04/2019 05/04/2019 [facility] Outpatient [id number] -URODYNAMICS, 05/18/2019 Active [facility] Outpatient [id number] Christopher Bartholomewight 05/18/2019 05/19/2019 [facility] Outpatient [id number] MED_ASST VISIT 05/27/2019 Active [facility] Outpatient [id number] -URODYNAMICS, 06/01/2019 Active [facility] Outpatient [id number] [facility] 06/02/2019 [facility] Outpatient [id number] -URODYNAMICS, 06/08/2019 [facility] Outpatient [id number] Kelechi [facility] 06/14/2019 Active [facility] Procedures Procedure Code Date Perfomer Comments Source MRI non-joint region of extremity upper wo contrast [id number] 04/29/2019 [facility] X-ray of chest, two views [id number] 04/23/2019 [facility] X-ray of chest, single view [id number] 02/08/2019 [facility] US abdomen complete [id number] 01/06/2019 [facility] Computed tomography of chest with contrast [id number] 01/05/2019 [facility] PRQ CARD STENT W/ANGIO 1 VSL [id number] 12/08/2018 [facility] CORONARY ARTERY ANGIO S&I [id number] 12/08/2018 [facility] PRQ CARD STENT W/ANGIO 1 VSL [id number] 11/06/2018 [facility] CORONARY ARTERY ANGIO S&I [id number] 11/06/2018 [facility] X-ray of chest, two views [id number] 09/13/2018 [facility] Cystoscopy [id number] 08/25/2018 [facility] Cystoscopy [id number] 08/25/2018 [facility] [place] X-ray of chest, two views [id number] 07/31/2018 [facility] Ultrasound, renal [id number] 07/31/2018 [facility] Complex uroflowmetry [id number] 03/30/2018 [facility] Complex uroflowmetry [id number] 03/30/2018 [facility] [place] Catheter replacement [id number] [facility] Fusion<sup>1</sup> [id number] cervical fusion done on 09/11/[address] Nilo Adames [facility] Prostate manipulation [id number] [facility] Stent replacement [id number] [facility] Catheter replacement [id number] [facility] [place] Fusion<sup>1</sup> [id number] cervical fusion done on 09/11/[address] Nilo Adames [facility] [place] Prostate manipulation [id number] [facility] [place] Stent replacement [id number] [facility] [place] Catheter replacement [id number] [facility] Fusion<sup>1</sup> [id number] cervical fusion done on 09/11/[address] Nilo Adames [facility] Prostate manipulation [id number] [facility] Stent replacement [id number] [facility] Assessment and Plan No Data Provided for This Section Plan of Care Plan of Care Date Source Discharge Date 05/04/19 10:54am Disposition HOME, SELF-CARE Instructions/Education Provided COPD Congestive Heart Failure Prescriptions See Medication Section Additional Instructions/Education f/u with PCP in 1-2 weeks 05/04/2019 [facility] Discharge Date 02/15/19 2:47pm Disposition HOME, SELF-CARE Instructions/Education Provided Atrial Fibrillation Cellulitis Prescriptions See Medication Section Additional Instructions/Education F/U WITH PCP IN 1-2 WEEKS F/U WITH DR HERNANDEZ IN 1-2 WEEKS F/U WITH DR AMEZCUA IN 1-2 WEEKS F/U WITH DR RESENDEZ IN 1-2 WEEKS CONTINUE WITH THICKENED LIQUIDS 02/15/2019 [facility] Discharge Date 01/09/19 1:42pm Disposition HOME, SELF-CARE Instructions/Education Provided Cirrhosis COPD Prescriptions See Medication Section Referrals HAILEE HERNANDEZ MD (Cardiology) Order Date: 7-10 Days Entered Date: 01/09/2019 12:33pm Address: [address] [place] [address] [address] [place], [place] [id number] JOHNSON AMEZCUA MD (Internal Medicine) Order Date: 1-2 Weeks Entered Date: 01/09/2019 12:33pm Address: [address] [place] [address] [address] [place] [address] Additional Instructions/Education FOLLOW UP WITH PCP IN 1-2 WEEKS FOLLOW UP WITH NEPHROLOGY IN 1-2 WEEKS FOLLOW UP WITH DR BLACK IN 1-2 WEEKS FOLLOW UP WITH CARDIOLOGY (DR. HERNANDEZ) NEXT WEEK CALL EACH OFFICE TO SCHEDULE AN APPOINTMENT 01/09/2019 [facility] Social History Social History Date Source Social History Problem Response Recorded Date/Time Onset Date Status Hx Psychiatric Problems No 06/04/2017 3:20pm Not Applicable Not Applicable Hx Substance Use Disorder No 12/30/2018 10:43am Not Applicable Not Applicable Hx Alcohol Use No 12/30/2018 10:43am Not Applicable Not Applicable 05/04/2019 [facility] Social History TypeResponse Smoking Status Former smoker; [...] Cessation Counseling No entered on: 07/11/16 07/11/2016 [facility] Social History TypeResponse 04/24/2016 [facility] [place] Family History No Data Provided for This Section Advance Directives Order Name Results Value Date Source Advance Directives Advance Directives Directive Response Recorded Date/Time Does the patient have an advance directive? Yes 04/23/19 9:55pm If yes, is advance directive on file with [facility]? No 04/23/19 9:55pm If not on file with [facility] will patient provide a copy? Yes 04/23/19 9:55pm Do you have a Directive to Physician? Yes 04/23/19 6:20pm Do you have a Medical Power of Corporate Receptionist? Yes 04/23/19 6:20pm Do you have an [...] rights and responsibilities? Yes 04/23/19 6:20pm 05/04/2019 [facility] Advance Directives Advance Directives Directive Response Recorded Date/Time Does the patient have an advance directive? No 02/09/19 2:20am If yes, is advance directive on file with [facility]? No 02/09/19 2:20am If not on file with [facility] will patient provide a copy? No 02/09/19 2:20am Do you have a Directive to Physician? No 02/08/19 3:53pm Do you have a Medical Power of Corporate Receptionist? No 02/08/19 3:53pm Do you have an [...] rights and responsibilities? Yes 02/08/19 3:54pm 02/15/2019 [facility] Advance Directives Advance Directives Directive Response Recorded Date/Time Does the patient have an advance directive? No 01/06/19 12:00am If yes, is advance directive on file with [facility]? No 01/06/19 12:00am If not on file with [facility] will patient provide a copy? No 01/06/19 12:00am Do you have a Directive to Physician? Yes 01/05/19 2:05pm Do you have a Medical Power of Corporate Receptionist? Yes 01/05/19 2:05pm Do you have an [...] rights and responsibilities? Yes 01/05/19 2:05pm 01/09/2019 [facility] Functional Status No Data Provided for This Section
[2019-05-26 18:40] LABS: BILIRUBIN,URINE NEGATIVE (NEGATIVE); CLARITY,URINE CLEAR (CLEAR); COLOR,URINE YELLOW (YELLOW); KETONES,URINE NEGATIVE (NEGATIVE); LEUKOCYTE ESTERASE ,URINE NEGATIVE (NEGATIVE); NITRITE,URINE NEGATIVE (NEGATIVE); PROTEIN,URINE DIPSTICK NEGATIVE (NEGATIVE); URINE UROBILINOGEN 0.2 mg/dL (0.2 - 1)
[2019-05-26] MEDS: SODIUM CHLORIDE 0.9% 1000ML 1,000 ML IV SCH (18:49)
[2019-05-26 18:54] LABS: EPITHELIAL CELLS,URINE RARE /LPF; RENAL EPITHELIAL CELLS,URINE RARE; WBC,URINE (MAN) 0-5 /HPF (0-5)
--- NOTE | 2019-05-26 19:06 | NUR ---
report to johanne
[2019-05-26] MEDS ORDERED: SODIUM CHLORIDE 0.9% 1000ML 500 ML IV ONE (19:15)
--- NOTE | 2019-05-26 19:15 | NUR ---
bp 90/60. driver wheelchair informed. 500cc bolus order. bolus administered per orders.
[2019-05-26 20:59] VITALS: BP 112/68
--- NOTE | 2019-05-26 20:59 | NUR ---
PATIENT CAME FROM . VIA STRETCHER. ALERT AND RESPONSIVE. PATIENT ON A TELEMETRY AND OXYGEN AT 2L/MIN. PATIENT REFUSED TO CHANGED CLOTHES TO A HOSPITAL GOWN. HE SAID HE IS MORE COMFORTABLE WEARING HIS SHIRT AND SHORTS. PATIENT REFUSED BED ALARM AND NON SKID SOCKS DESPITE NURSE EXPLAINED THAT IT IS FOR HIS SAFETY SINCE FELL SEVERAL TIMES AT HOME. PATIENT INSISTS THAT HE SITS ON THE SIDE OF THE BED MOST OF THE TIME AND HE WANTS TO STAND WHEN HE URINATE USING THE URINAL. HE ADDED HE WILL CALL IF HE NEEDS ASSISTANCE. PATIENT ALSO REFUSED VITAL SIGNS CHECKED AT 12 MIDNIGHT AND 4 AM. RN EXPLAINED TO PATIENT THAT VITALS NEEDS TO BE CHECK BECAUSE BP HAS BEEN DROPPING AND UNSTABLE. PATIENT AGREED FOR BP MONITORING FOR 12 MIDNIGHT AND 4 AM. VITALS IS STABLE AT THIS TIME. CALL LIGHT WITHIN REACHED.
[2019-05-26 21:15] VITALS: BP 112/68
[2019-05-26 23:20] VITALS: BP 112/68
[2019-05-26 23:45] VITALS: BP 106/56
[2019-05-27] VITALS (8 sets, daily range): BP systolic 92–124; BP diastolic 53–68
[2019-05-27] MEDS: SODIUM CHLORIDE 0.9% 1000ML 1,000 ML IV SCH (06:03)
[2019-05-27] MEDS ORDERED: ALBUTEROL/IPRATROPIUM 3 ML NEB NEB PRN (08:15)
[2019-05-27 08:21] LABS: BASOPHILS % 0.8 % (0.0-1.0); EOSINOPHILS # (AUTO) 0.2 (0.0-0.4); EOSINOPHILS % 5.6 % (0.0-6.0); HEMATOCRIT 34.3 % (38.2-49.6); HEMOGLOBIN 10.2 g/dL (14.0-18.0); LYMPHOCYTES # (AUTO) 0.8 (1.0-3.2); LYMPHOCYTES % 21.2 % (18.0-39.1); MEAN CORPUSCULAR HEMOGLOBIN 27.3 pg (28-32); MEAN CORPUSCULAR HGB CONC 29.7 g/dL (31-35); MEAN CORPUSCULAR VOLUME 91.7 fL (81-99); MONOCYTES # (AUTO) 0.5 (0.2-0.8); MONOCYTES % 12.4 % (4.4-11.3); NEUTROPHILS # (AUTO) 2.2 (2.1-6.9); NEUTROPHILS % 59.7 % (38.7-80.0); PLATELET COUNT 174 x10e3/uL (140-360); RED BLOOD COUNT 3.74 x10e6/uL (4.3-5.7); RED CELL DISTRIBUTION WIDTH 15.3 % (11.7-14.4)
[2019-05-27 08:43] LABS: ANION GAP 14.4 mmol/L (8-16); CALCIUM 9.1 mg/dL (8.4-10.2); CREATININE, SERUM 1.81 mg/dL (0.72-1.25); MAGNESIUM 2.2 MG/DL (1.3-2.1); POTASSIUM 3.4 mmol/L (3.5-5.1)
[2019-05-27] MEDS: ALBUTEROL/IPRATROPIUM 3 ML NEB NEB SCH ×2 (08:45→13:00)
[2019-05-27] MEDS ORDERED: LEVOTHYROXINE SODIUM 100 MCG TAB PO SCH (09:00)
[2019-05-27] MEDS ORDERED: LIOTHYRONINE SODIUM 5 MCG TAB PO SCH (09:00)
[2019-05-27] MEDS: METOPROLOL TARTRATE 25 MG TAB PO SCH ×2 (09:08→20:29)
[2019-05-27] MEDS: MIDODRINE 2.5 MG TAB PO SCH ×3 (09:08→16:30)
[2019-05-27] MEDS: CLOPIDOGREL BISULFATE 75 MG TAB PO SCH (09:09)
[2019-05-27] MEDS: RIVAROXABAN 15 MG TABLET PO SCH (09:09)
[2019-05-27] MEDS: METOLAZONE 5 MG TAB PO SCH (09:09)
[2019-05-27] MEDS: ASPIRIN 81 MG CHEW TAB PO SCH (09:09)
[2019-05-27] MEDS: BUMETANIDE 1 MG TAB PO SCH ×2 (09:09→16:30)
[2019-05-27] MEDS: SUCRALFATE 1 GM TAB PO SCH ×2 (11:48→16:30)
--- NOTE | 2019-05-27 12:48 | NUR ---
pt off unit. for testing
--- NOTE | 2019-05-27 13:37 | NUR ---
pt arrived to floor. resp even and unlabored.
--- NOTE | 2019-05-27 14:14 | Diagnostic Imaging Report ---
MRI BRAIN WO HISTORY: Syncope COMPARISON: None. TECHNIQUE: Sagittal T2, axial T2, axial T1, axial T2/FLAIR, axial gradient echo (or susceptibility weighted), coronal T2/FLAIR, and axial diffusion weighted MR images of the brain were obtained without contrast. Motion, noise, and alias artifacts obscure some details. DISCUSSION: Scalp/bone marrow: Unremarkable. Brain sulci: Prominent. Ventricles: Compensatory dilatation. Extra-axial spaces: No masses or fluid collections. Parenchyma: Scattered T2/FLAIR hyperintense foci throughout the supratentorial white matter are likely chronic microvascular ischemic changes. Otherwise, no mass, hemorrhage, or acute vascular insults. Vessels: Normal flow voids in major arteries and veins. Sellar/Suprasellar region: No abnormalities. Craniocervical junction: ACDF changes are partially visualized. Incidental findings: Both ocular lenses are thinned. T2 hyperintense left mastoid effusion is present. IMPRESSION: 1. No acute intracranial abnormalities. 2. Mild supratentorial chronic microvascular ischemic change. 3. Mild generalized cerebral volume loss. Signed by: Dr. Jagjit Turner M.D. on 05/27/2019 2:10 PM
--- NOTE | 2019-05-27 14:16 | Diagnostic Imaging Report ---
CT BRAIN WO HISTORY: Syncope COMPARISON: MRI of the brain 05/27/2019 Technique: Noncontrast axial scans were obtained from skull base to the vertex. Coronal and sagittal reconstructions obtained from the axial data. One or more of the following dose reduction techniques were used: Automated exposure control, adjustment of the mA and/or kV according to patient size, and/or utilization of iterative reconstruction technique. DISCUSSION: Scalp/Skull: Unremarkable. Brain sulci: Mildly prominent. Ventricles: Compensatory dilatation. Extra-axial spaces: No masses or fluid collections. Carotid siphon calcifications are present. Parenchyma: Mild bilateral deep white matter hypodensity is likely chronic microvascular ischemic change. Otherwise, no masses, hemorrhage, or large vascular territory acute infarct. Dural sinuses: No abnormal densities. Sellar/Suprasellar region: Intact. Skull base: Intact. Incidental findings: Both ocular lenses are thinned. Small left mastoid effusion. Mild mucosal thickening in the left posterior ethmoid air cells. IMPRESSION: 1. No acute intracranial abnormalities. 2. Mild supratentorial chronic microvascular ischemic change. Mild generalized cerebral volume loss. Signed by: Dr. Jagjit Turner M.D. on 05/27/2019 2:12 PM
[2019-05-27] MEDS: FAMOTIDINE 20 MG TAB PO SCH (16:30)
--- NOTE | 2019-05-27 17:50 | Consultation ---
DATE OF CONSULTATION: HISTORY OF PRESENT ILLNESS: This is a 73-year-old male, who was admitted the last time on April 23 with worsening shortness of breath and worsening edema. The patient was diuresed, went home at home. He fell, so he went to [facility] two days later and secondary to wounds on his arms and was admitted and stayed for approximately 4 to 5 days and then he was discharged home. He was told he was hypertensive. The patient again went home for the last week and now he is back with presyncopal episodes. PAST MEDICAL HISTORY: Includes: 1. Chronic kidney disease stage 3. 2. Chronic obstructive pulmonary disease. 3. Asthma. 4. Type 2 diabetes mellitus. 5. Cirrhosis. 6. Gout. 7. Ankylosing spondylitis. 8. Parkinsonism. 9. Benign prostatic hyperplasia. 10. Hypothyroidism. PAST SURGICAL HISTORY: Include: 1. Neck fusion. 2. Prostate laser surgery. 3. Pain pump. 4. Cataract surgery. 5. Vein ablation. SOCIAL HISTORY: No alcohol, drugs. FAMILY HISTORY: Noncontributory. ALLERGIES: NO KNOWN DRUG ALLERGIES. REVIEW OF SYSTEMS: Same as previously, but now with the added syncope and wounds on his arms. CURRENT MEDICATIONS: Reviewed. The patient is on metoprolol, Synthroid, Xarelto, metolazone, potassium, colchicine, Cytomel, Bumex, aspirin, meropenem, linezolid, lidocaine, tamsulosin, sertraline, Requip, Xalatan, allopurinol, albuterol. PHYSICAL EXAMINATION: GENERAL: Alert, oriented, following commands. HEENT: Pupils are equal, reactive and accommodation. NECK: No JVD. No bruit. LUNGS: Rhonchi. No rales. HEART: Regular rate and rhythm. No S3. No S4. ABDOMEN: Nontender and nondistended. No hepatomegaly or splenomegaly. EXTREMITIES: +2 edema. VITAL SIGNS: Blood pressure 105/56. LABORATORY DATA: White count 3.7, hemoglobin 10.2, hematocrit 34.3. Sodium 141, potassium 3.4, creatinine 1.81, GFR of 37, which is better than last time of this chart and it was a 2.57. ASSESSMENT AND PLAN: 1. Chronic kidney disease, stage 4, currently stable with stable creatinine. 2. Presyncopal episode. This patient is very difficult to manage with volume overload, cirrhosis, chronic kidney disease, and orthostatic hypotension. Currently, we are adjusting his medications, so the patient received IV fluid. No need to balance that with his +2 edema on his legs, which would worsen fast and he becomes short of breath very easily. Currently, he is feeling well on oxygen. No shortness of breath. For now the plan is for workup for syncopal episode. Monitor BUN and creatinine. Monitor urine output and monitor his orthostasis. Sadi Jose MD MA/STEVE /[id number]
--- NOTE | 2019-05-27 19:32 | NUR ---
report given to oncoming nurse, pt stable at this time.
[2019-05-27] MEDS ORDERED: TAMSULOSIN HCL 0.4 MG CAP PO SCH (21:00)
[2019-05-27] MEDS ORDERED: ALLOPURINOL 300 MG TAB PO SCH (21:00)
[2019-05-27] MEDS ORDERED: ROPINIROLE HCL 0.25 MG TAB PO SCH (21:00)
[2019-05-27] MEDS ORDERED: SERTRALINE HCL 50 MG TAB PO SCH (21:00)
--- NOTE | 2019-05-27 21:34 | NUR ---
Offered non skid socks for patient. He refused and chose to use own socks and slippers. Patient also refused bed alarm.
--- NOTE | 2019-05-28 01:48 | Consultation ---
DATE OF CONSULTATION: 05/27/2019 Cardiology Consultation REQUESTING PHYSICIAN: Kavon Short MD REASON FOR CONSULTATION: Congestive heart failure. HISTORY OF PRESENT ILLNESS: This is a 73-year-old man with coronary artery disease with recent stent, atrial fibrillation, chronic diastolic heart failure, hypertension, hyperlipidemia, cirrhosis by CT imaging, and chronic kidney disease, who is well-known to our service, who presents with complaints of frequent falls. The patient was recently admitted at [facility] in the beginning of April with acute on chronic diastolic heart failure and acute on chronic kidney disease. He was diuresed and discharged home on p.o. Bumex and metolazone. The patient reports he fell the day he was discharged from the [facility] with resulting fractures of 2 ribs as well as bleeding from his left upper extremity. He presented to [place] for treatment of his wound and was subsequently discharged home. He then was seen by his primary care doctor. He was then admitted to [facility] [place] [place] with altered mental status and hypotension. He states he was discharged in the middle of April. He had been feeling well after discharge other than frequent falls. The patient denies any loss of consciousness, weakness, or unsteadiness. He denies mechanical fall as he states these occurred while he was standing still. He went to see his primary care doctor and was noted to have hypotension. He was instructed to decrease his Bumex and if his symptoms did not improve, go to the ER for further evaluation. Due to continued hypotension, he presented to the ER and was admitted for further care. On arrival to the ER, he was noted to be hypotensive to 94/65. He denies any chest pain, shortness breath, palpitations, orthopnea, or PND. He does have chronic edema, but states this is improved from his baseline. He denies fever, chills, nausea, vomiting, diarrhea or dysuria. REVIEW OF SYSTEMS: Negative except as per HPI. PAST MEDICAL HISTORY: 1. Coronary artery disease, status post recent stent. 2. Atrial fibrillation. 3. Chronic diastolic heart failure. 4. Hypertension. 5. Hyperlipidemia. 6. Cirrhosis by CT imaging. 7. Chronic kidney disease. 8. Diabetes mellitus. 9. COPD. PAST SURGICAL HISTORY: PCI. ALLERGIES: NO KNOWN DRUG ALLERGIES. MEDICATIONS: Please see medication list. SOCIAL HISTORY: No tobacco, alcohol, or illicit drugs. FAMILY HISTORY: Noncontributory to current illness. PHYSICAL EXAMINATION: VITAL SIGNS: Temperature 96.4 degrees, pulse 94, respiratory rate 18, blood pressure 92/52, oxygen saturation 98% on nasal cannula. GENERAL: Elderly man, chronically ill-appearing, in no acute distress. HEENT: Normocephalic, atraumatic. Pupils equal. No scleral icterus. NECK: Supple. No thyroid or cervical lymphadenopathy. No carotid bruits. LUNGS: Clear to auscultation bilaterally. No wheeze or crackles. CARDIOVASCULAR: Normal rate. Irregularly irregular. Normal S1 and S2. ABDOMEN: Soft, nontender. EXTREMITIES: 2+ pitting edema. Left upper extremity is swollen compared to the right with ecchymosis and dressing in place. LABORATORY DATA: WBC 3.72, hemoglobin 10.2, hematocrit 34.3, platelets 174. Sodium 141, potassium 3.4, chloride 92, CO2 of 38, BUN 49, creatinine 1.81. BNP 328. EKG, atrial fibrillation, nonspecific T-wave abnormalities. IMPRESSION: 1. Frequent falls. 2. Suspect presyncope. 3. Acute on chronic kidney disease. 4. Coronary artery disease, status post recent stent. 5. Atrial fibrillation. 6. Chronic diastolic heart failure. 7. Hypertension. 8. Hyperlipidemia. 9. Diabetes mellitus. 10. COPD. RECOMMENDATIONS: Carotid doppler did not reveal hemodynamically significant stenosis. The patient had echocardiogram done at the end of March with preserved LV systolic function. No valvular abnormalities were appreciated. No indication to repeat echocardiogram at this time. Monitor the patient closely on telemetry while he is admitted. Check orthostatic vitals. Given chronic kidney disease, defer volume management to Nephrology. Continue current cardiac medications including anti-platelet therapy given his recent stent. Given his comorbid conditions, the patient's volume status is very tenuous as he becomes easily volume overloaded. We will watch volume status closely. Thank you for this consult. We will continue to follow. Zenaida Randolph MD ABS/MODL /[id number]
[2019-05-28 03:47] VITALS: BP 101/57
--- NOTE | 2019-05-28 04:33 | Consultation ---
DATE OF CONSULTATION: 05/27/2019 Neurology Consult Note HISTORY OF PRESENT ILLNESS: Mr. Sharma is a 73-year-old right-hand dominant man with extensive past medical history, admitted to [facility] on May 26, 2019, status post multiple falls. In addition to these falls, Mr. Sharma reports numerous other symptoms which are concerning to him. Over the past several weeks, the patient has experienced multiple falls, each resulting in bruises, abrasions, or other minor injuries. The fall often occur after the patient has been standing for at least a few minutes. Mr. Sharma reports he will make a "slight movement," usually quickly, loses balance, and fall to the ground. Mr. Sharma does not report loss of consciousness causing it or resulting from any of these falls. He has never been told he exhibited seizure-like activity associated with any of his falls. Prior to each fall, the patient does not experience chest pain or tightness, palpitations, worsening shortness of breath, or an epigastric rising sensation. He does occasionally experience dizziness, which is further described as a lightheaded sensation, proceeding from his falls. When asked whether or not the falls may occur as a result of tripping over some item or slipping on the floor, the patient responds in the negative. Mr. Sharma does have a known history of peripheral neuropathy. The etiology of the patient's peripheral neuropathy is unknown, according to the patient. While Mr. Sharma does report being prediabetic or diabetic, he reports this diagnosis was made approximately 4 or 5 years after the peripheral neuropathy was diagnosed. Initially, the patient experienced a burning pain and tingling over the feet and forelegs, just distal to the knees. However, the patient reports his neuropathic pain "went away" 7 years ago. At present, Mr. Sharma experiences only numbness affecting both feet and forelegs distal to the knees. Mr. Sharma reports he has never undergone gait and balance exercises with a physical therapist as treatment for his peripheral neuropathy and the resulting poor balance and unsteady gait. Mr. Sharma expresses concerns regarding his interactions with his . He reports he will be in conversation with his when he suddenly "zoned out." When asked to further describe this activity, the patient states he "just falls asleep" in the middle of conversations or while performing various tasks (speaking with his or other family member, working on his computer, reading a book, watching television). When asked whether or not he has ever been told he stares forward, unresponsive for any period of time, Mr. Sharma responds in the negative. Mr. Sharma does have a known history of obstructive sleep apnea, for which he is supposed to wear a CPAP at night. Mr. Sharma is not compliant with his treatment. The patient reports he does not feel well rested when he awakens from sleep every morning. He is often "very drowsy" throughout the day and can fall asleep easily in various situations as detailed above. The patient reports he often leans to one side or the other while sitting. However, Mr. Sharma suspects this is due to his known history of ankylosing spondylitis and chronic low back pain. He reports leaning toward his left side to alleviate pain on the right side of his back and vice versa. Lastly, the patient voices concerns about the "jerks" he experiences during sleep. Mr. Sharma last underwent a sleep study 2 or 3 years ago. He reports the sleep study was terminated prematurely because his arms and legs were "jerking all over the place" during the study. When asked for further information about the jerking movements (what part of the body is affected, how often did the jerks occur, etc.), the patient is unable to provide any answers. Mr. Sharma does have a diagnosis of restless legs syndrome, which is being treated by his structural welder, Dr. Rosario. The patient is presently on 2 pro-dopaminergic medications for treatment of these symptoms. Mr. Sharma is uncertain as to whether or not these medications improve any of the symptoms he experiences in his legs. There is no known family history of neurological disease. Mr. Sharma was previously under the care of a neurologist, but does not wish to discuss the physician, diagnostic studies, which were performed, recommendations for treatment, etc. REVIEW OF SYSTEMS: Irregular heartbeat, shortness of breath, numbness of the arms and legs, impairment of balance and gait, chronic low back pain, excessive daytime sleepiness, snoring, multiple falls. Otherwise, a 12-point review of systems is negative. PAST MEDICAL HISTORY: Hypertension, diabetes mellitus type 2 (complicated by peripheral neuropathy?), coronary artery disease, diastolic congestive heart failure, atrial fibrillation, COPD, thyroid disease, ankylosing spondylitis, gout, osteoarthritis, chronic kidney disease stage 3, neurogenic bladder, gastroesophageal reflux disease, anxiety disorder, restless legs syndrome, benign prostatic hypertrophy, and chronic low back pain. PAST SURGICAL HISTORY: Placement of a Dilaudid pump, peripheral vascular procedures, prostate surgery, bilateral cataract removal. PAST HOSPITALIZATIONS: Surgeries/procedures as listed, numerous hospitalizations, including 2 within the past few weeks. FAMILY MEDICAL HISTORY: The patient's paternal and maternal grandparents are . Their medical histories are unknown. The patient's father and mother are . Both parents have hypertension. His father required pacemaker placement. His mother had atrial fibrillation. This is the only pertinent family medical history described by the patient. SOCIAL HISTORY: Mr. Sharma is . He is retired. The patient does report a prior history of tobacco use, but quit smoking cigarettes approximately 5 years ago. The patient does not report current or prior alcohol or recreational drug use. HOME MEDICATIONS: Reviewed. Please see list of home medications available in the electronic medical record. HOSPITAL MEDICATIONS: Reviewed. Please see the list of hospital medications available in the electronic medical record. ALLERGIES: NO KNOWN DRUG ALLERGIES. NO KNOWN FOOD ALLERGIES. NO KNOWN ALLERGIES TO LATEX. NO KNOWN ALLERGIES TO IODINE OR OTHER CONTRAST MATERIALS. PHYSICAL EXAMINATION: VITAL SIGNS: Height 69 inches, weight 228 pounds, BMI 33.7 kg/m2. Blood pressure 92/53 mmHg, pulse 94 beats per minute, respiratory rate 18 breaths per minute, and oxygen saturation 96% on 3 L by nasal cannula. GENERAL: The patient is awake and alert, does not appear distressed. Obese. HEENT: Normocephalic, atraumatic. Pupils are surgical. Moist mucous membranes. Neck: Supple. No appreciable thyromegaly. No appreciable carotid bruits. CARDIOVASCULAR: S1 and S2, regular rate, irregular rhythm. No murmurs, rubs, or gallops. RESPIRATORY: Clear to auscultation bilaterally. No wheezes, rhonchi, or rales. EXTREMITIES: The skin is warm and dry. No clubbing or cyanosis. 3+ pretibial pitting edema. The posterior tibial and dorsalis pedis pulses are trace and symmetric. SKIN: Venous stasis ulcerations. NEUROLOGIC: MEMORY/ATTENTION: The patient is awake and alert, oriented to person, place, time, and situation. CRANIAL NERVES: Cranial nerve I-not tested. Cranial nerve II, III, IV, and - the pupils are surgical. Extraocular movements intact. No nystagmus. Cranial nerve V-sensation is intact to light touch and pinprick in the bilateral V1 through V3 distributions. Strength in the temporalis and masseter muscles are within normal limits. Cranial nerve VII-the face is symmetric as are all facial movements. Strength is within normal limits. Cranial nerve VIII-hearing is diminished to finger rub bilaterally. Cranial nerve IX, X-the soft palate elevates equally and symmetrically. Cranial nerve XI-normal strength of the bilateral sternocleidomastoid and trapezius muscles. Cranial nerve XII-the tongue protrudes midline and moves symmetrically from [id number]-hhat. STRENGTH: Bulk is normal. Strength is 5/5 in the bilateral deltoids, biceps, triceps, wrist flexors and extensors, finger flexors and extensors, and intrinsic hand muscles. Bilateral hip flexors are 4+/5, bilateral knee flexors are 4+/5, bilateral knee extensors are 5-/5, bilateral ankle dorsiflexion is 4/5, bilateral ankle plantar flexion is 4+/5, and intrinsic foot muscles are 4/5. Tone is normal in both arms and both legs. DTRS: Deep tendon reflexes are 1+ and symmetric at the triceps, biceps, and brachioradialis. Deep tendon reflexes are trace and symmetric at the patellas. Deep tendon reflexes are absent and symmetric at the Achilles. Plantar responses are flexor bilaterally. SENSATION: Sensation is reportedly intact to light touch and pinprick in both arms and both legs. CEREBELLAR: Bggwhv-blzh-ippttu and heel-hensley movements are intact without dysmetria or other impairment. GAIT: Deferred. SPEECH: Spontaneous speech is normal without appreciable dysarthria or aphasia. Repetition is intact. INVOLUNTARY MOVEMENTS: None. PRONATOR DRIFT: None. LABORATORY DATA: The most recent basic metabolic panel is significant for a potassium of 3.4, chloride of 92, carbon dioxide of 38, BUN of 49, creatinine of 1.81, estimated GFR of 37, and serum glucose of 152. Liver function panel collected on May 26, 2019, was unremarkable. Lipase 19. Lactic acid 21.8, 14.1. Brain natriuretic peptide 247.0, 328.4. Cardiac enzymes are negative x1. The CBC with differential and platelets reveals a white blood cell count of 3.72 with 59.7% neutrophils, 21.2% lymphocytes, 12.4% monocytes, 5.6% eosinophils, and 0.8% basophils. The hemoglobin and hematocrit are 10.2 and 34.3, respectively. The platelet count is 174. PT 18.3, INR 1.46, PTT 56.4. A urinalysis is unremarkable. DIAGNOSTIC STUDIES: Electrocardiogram on 05/26/2019: Atrial fibrillation at 98 beats per minute. Bilateral carotid artery ultrasound with Doppler on 05/26/2019: There is mild atherosclerotic plaque noted bilaterally. There is no hemodynamically significant stenosis noted of the carotid system bilaterally. The vertebral artery demonstrates antegrade flow bilaterally. Chest x-ray on 05/26/2019: Patchy opacity at left lung base, likely subsegmental atelectasis. MRI of the brain without contrast on 05/27/2019: On my review, there is no evidence of recent or remote large territorial ischemia, hemorrhage, mass, or mass effect. There is mild diffuse cerebral atrophy with compensatory dilatation of the ventricles, more than is expected for the patient's age. There are findings compatible with mild chronic small vessel ischemic disease. ASSESSMENT AND PLAN: Mr. Sharma is a 73-year-old right-hand dominant man with an extensive past medical history, admitted to [facility] status post multiple falls, reporting multiple symptoms as detailed in the history of present illness. The patient has undergone a thorough neurological examination, which is detailed above. His laboratory data and other diagnostic studies have been reviewed and are documented above. As regards to the patient's frequent falls, these are secondary to peripheral neuropathy with or without a component of dysautonomia. Some patients with peripheral neuropathy will have their autonomic nervous systems affected. The resulting dysautonomia, which can cause fluctuations in blood pressure and heart rate, may result in presyncope or syncope. Mr. Sharma does not report neuropathic pain, so treatment with gabapentin or similar medication is not necessary. It is recommended the patient be referred to physical therapy once he is discharged from the hospital for gait and balance exercises. In terms of treating his dysautonomia, Mr. Sharma should be treated with medications such as midodrine, fludrocortisone, or similar to maximum benefit. As detailed in history of present illness, Mr. Sharma is concerned about "zoning out" while speaking with his or other family members or performing various tasks. By "zoning out," the patient reports he is falling asleep at inopportune times. Based on the other symptoms endorsed by the patient, I strongly suspect his "zoning out" is due to his poorly treated obstructive sleep apnea. Further evaluation and treatment are deferred to the patient's structural welder. The leaning described by the patient is probably a compensatory mechanism brought about by his chronic back pain. Further evaluation and treatment are deferred to Rheumatology and Pain Management. Mr. Sharma reports jerking movements of his arms and legs during sleep. Unfortunately, the patient is unable to give any further description regarding these movements. However, he does report the movements were noted on a sleep study performed approximately 2 or 3 years ago. Therefore, an effort will be made to obtain a copy of the sleep study, so the results may be reviewed. Once that is accomplished, recommendations for further evaluation and treatment may be given to the patient. Treatment of the remaining medical comorbidities is deferred to the primary service. From a neurological standpoint, the patient does not require further evaluation or treatment as an inpatient. He may follow up as an outpatient for further evaluation and treatment of his multiple symptoms. Thank you for this consultation. There are no other recommendations from the Neurology Service at this time. TIME SPENT: 70 minutes. Monique Fontana MD CP/STEVE /[id number]
[2019-05-28 05:05] LABS: BASOPHILS % 0.6 % (0.0-1.0); EOSINOPHILS # (AUTO) 0.3 (0.0-0.4); EOSINOPHILS % 6.4 % (0.0-6.0); HEMATOCRIT 32.7 % (38.2-49.6); HEMOGLOBIN 9.9 g/dL (14.0-18.0); LYMPHOCYTES # (AUTO) 1.1 (1.0-3.2); LYMPHOCYTES % 23.2 % (18.0-39.1); MEAN CORPUSCULAR HEMOGLOBIN 27.1 pg (28-32); MEAN CORPUSCULAR HGB CONC 30.3 g/dL (31-35); MEAN CORPUSCULAR VOLUME 89.6 fL (81-99); MONOCYTES # (AUTO) 0.7 (0.2-0.8); MONOCYTES % 15.1 % (4.4-11.3); NEUTROPHILS # (AUTO) 2.6 (2.1-6.9); NEUTROPHILS % 54.5 % (38.7-80.0); PLATELET COUNT 194 x10e3/uL (140-360); RED BLOOD COUNT 3.65 x10e6/uL (4.3-5.7); RED CELL DISTRIBUTION WIDTH 15.2 % (11.7-14.4)
--- NOTE | 2019-05-28 05:29 | Consultation ---
DATE OF CONSULTATION: 05/27/2019 Pulmonary Medicine Consult PRIMARY CARE DOCTOR: Dr. Christopher Summers. REASON FOR REFERRAL: COPD. HISTORY OF PRESENT ILLNESS: Mr. Sharma is a pleasant 73-year-old gentleman with COPD. The patient was admitted on May 26, 2019. The patient had a presyncopal episode. The patient has had 3 falls in the last 3 weeks. Often a feeling of imbalance and lightheadedness. The patient continues to take his Parkinson's medications. He has numerous bruises on his body. The patient is denying that shortness of breath is a part of these presyncopal episodes. The patient has been measured to have low blood pressure at times. The patient does feel like sleepiness impairs him and is a heavy factor contributing to his falls. The patient is using his sleep apnea device on most days. He is having more and more nocturnal movements and his is noting. He had 10 to 12 voids per night and often it is low volume and with a lot of dribbling. He often uses a urinal while in bed, although he does have a bedside commode that he does not use often. He is getting treatment for his prostate. PAST MEDICAL HISTORY: COPD, asthma, CHF, LVEF 64%, atrial fibrillation, CKD stage 3 to 4, hypertension, diabetes, hypothyroidism, BPH, severe PLMS, REM behavior disordered sleep, Parkinson's syndrome, ankylosing spondylitis. MEDICATIONS: Medication list reviewed per the chart record. ALLERGIES: NO KNOWN DRUG ALLERGIES. FAMILY HISTORY: Noncontributory to this. SOCIAL HISTORY: No active smoking, no drinking, no drugs. The patient lives at home with his . Uses walker to help walk often. REVIEW OF SYSTEMS: GENERAL: No weight changes. OPHTHALMOLOGIC: No double vision. ENT: No mouth ulcers. ENDOCRINE: No known thyroid dyscontrol recently. PULMONARY: No hemoptysis. CARDIAC: No recent heart attack. GI: No constipation. : No blood in urine. NEUROLOGIC: No seizures. DERMATOLOGIC: No undiagnosed rashes. PHYSICAL EXAMINATION: VITAL SIGNS: Noted and reviewed per the chart record. GENERAL: In no acute distress. Alert and calm in bed. HEENT: Normocephalic and atraumatic. NECK: Supple. Throat midline. LUNGS: Bilateral air entry is with moderate air entry, mildly decreased. Rare rhonchi. CARDIOVASCULAR: S1 and S2. No murmurs, rubs, or gallops. ABDOMEN: Soft, nontender. EXTREMITIES: No clubbing. No cyanosis. There is 1 to 2+ leg edema. INTEGUMENT: No rash. No purpura. LABORATORY DATA: Potassium 3.4, BUN 49, creatinine 1.8. White count 3.7, hematocrit 34, and platelets 174. INR 1.46. Chest x-ray with mostly clear lungs. IMPRESSION AND PLAN: 1. Mild obstructive sleep apnea, usually compliant on CPAP. 2. Severe restless legs syndrome. 3. REM sleep behavior disorder. 4. Excessive daytime somnolence, probably predominantly from periodic limb movements of sleep and other movement disorder in REM sleep. 5. Chronic obstructive pulmonary disease, additional asthma. 6. Benign prostatic hypertrophy, multiple nocturia/enuresis. 7. Admit with presyncope and multiple falls recently. 8. Parkinson disease. 9. Very mild fluid overload. 10. Ankylosing spondylitis. 11. Chronic kidney disease, stage 3 to 4. 12. Hypertension. 13. Benign prostatic hypertrophy. 14. Atrial fibrillation history. 15. Hypertension, diabetes, hypothyroid. For his sleep apnea, he should continue his home CPAP, but in the hospital, he only wants positional therapy for now. Continue oxygen supplement including at night. I have discussed with him that he need to take care of his prostate and then we can escalate medicines for the sleep-related movement disorder to help him decrease falls. Medicine will give likely benzodiazepine such as clonazepam, which will need to be done in prepared setting so it does not increase falls during sleep. The patient should continue his current ropinirole medication. The patient as well to continue bronchodilators and rest of asthma and chronic obstructive pulmonary disease treatment. Thank you very much, Dr. Short, for allowing me to participate in the care of Mr. Sharma. Please call for questions. MD BREANNA Paulino/STEVE /[id number]
[2019-05-28 05:56] LABS: ANION GAP 13.8 mmol/L (8-16); CALCIUM 9.5 mg/dL (8.4-10.2); CREATININE, SERUM 1.68 mg/dL (0.72-1.25); POTASSIUM 3.8 mmol/L (3.5-5.1)
[2019-05-28] MEDS ORDERED: LIOTHYRONINE SODIUM 5 MCG TAB PO SCH (06:00)
[2019-05-28] MEDS ORDERED: LEVOTHYROXINE SODIUM 100 MCG TAB PO SCH (06:00)
--- NOTE | 2019-05-28 06:06 | NUR ---
DR. RESENDEZ NOTIFIED OF HIGH CO2 RESULT. NO NEW ORDERS.
[2019-05-28 08:10] VITALS: BP 86/50
[2019-05-28 08:19] VITALS: BP 86/50
[2019-05-28] MEDS: FAMOTIDINE 20 MG TAB PO SCH (08:25)
[2019-05-28] MEDS: METOPROLOL TARTRATE 25 MG TAB PO SCH (08:26)
[2019-05-28] MEDS: ASPIRIN 81 MG CHEW TAB PO SCH (08:26)
[2019-05-28] MEDS: SUCRALFATE 1 GM TAB PO SCH ×2 (08:26→11:48)
[2019-05-28] MEDS: MIDODRINE 2.5 MG TAB PO SCH ×2 (08:26→11:51)
[2019-05-28] MEDS: RIVAROXABAN 15 MG TABLET PO SCH (08:27)
[2019-05-28] MEDS: BUMETANIDE 1 MG TAB PO SCH (08:27)
[2019-05-28] MEDS ORDERED: MIDODRINE HCL2.5 MG PO (08:27)
[2019-05-28] MEDS: METOLAZONE 5 MG TAB PO SCH (08:27)
[2019-05-28] MEDS: CLOPIDOGREL BISULFATE 75 MG TAB PO SCH (08:27)
[2019-05-28] MEDS ORDERED: ALPRAZOLAM 0.5 MG TAB PO PRN (09:00)
--- NOTE | 2019-05-28 12:32 | NUR ---
CM SPOKE TO NINA CEDÑEO REGARDING PATIENT PLAN OF CARE AND DISCHARGE PLAN. PATIENT SIGNED CHOICE FOR [facility]. CLINICAL SENT TO [facility]. PATIENT DISCHARGING HOME WITH HOME HEALTH SERVICES FROM: [facility] Address: [address] [place] [address] [address], [place] [address] FAX: [phone]
--- NOTE | 2019-05-28 12:59 | NUR ---
Patient discharged off the unit at this time via wheelchair. Patient in no distress. patient has no complaints of pain. All questions answered regarding medications and side effects. [facility] pharmacist came and spoke with patient and patient's . All discharge education understood.
--- NOTE | 2019-05-28 13:57 | NUR ---
[facility] RETURNED CALL AND NOT IN NETWORK WITH INSURANCE. PATIENT CLINICAL FORWARDED TO [facility]. PATIENT TO RECEIVE CALL IN 48-72 HOURS ONCE AUTH IS RECEIVED TO SET UP APPOINTMENT TIME. LIAISON BRIAN NOTIFIED. [facility] (P)[phone] (F)[phone]
--- NOTE | 2019-05-30 01:26 | Discharge Summary ---
ADMISSION DIAGNOSES: Near syncope, hypotension, type 2 diabetes with chronic kidney disease stage 3, history of coronary artery disease with stents, complicated by chronic diastolic congestive heart failure, chronic obstructive pulmonary disease, hypothyroidism, restless legs syndrome, gout, anxiety, glaucoma, atrial fibrillation, frequent falls. DISCHARGE DIAGNOSES: Near syncope, hypotension, type 2 diabetes with chronic kidney disease stage 3, history of coronary artery disease with stents, complicated by chronic diastolic congestive heart failure, chronic obstructive pulmonary disease, hypothyroidism, restless legs syndrome, gout, anxiety, glaucoma, atrial fibrillation, frequent falls, rule out cerebrovascular accident, rule out transient ischemic attack. HISTORY: The patient has a history of CAD with stents, type 2 diabetes, COPD, CKD stage 3, atrial fibrillation, hypothyroidism, gout, neuropathy, RLS, chronic back pain, venous stasis, osteoarthritis, GERD, anxiety, glaucoma, obstructive sleep apnea, ankylosing spondylitis, urinary retention, chronic diastolic CHF. SURGICAL HISTORY: Prostate surgery, vein ablation, Dilaudid pain pump placement. FAMILY HISTORY: The patient's mother and father had high blood pressure. The patient's mother and father had a pacer. The patient's mother had AFib. SOCIAL HISTORY: The patient admits to smoking 1 to 1-1/2 packs of cigarettes a day. HOSPITAL COURSE: A 73-year-old male, discharged from [facility] on 05/06/2019, and fell at home the next day. He says he has fallen 3 times since discharge home. He then readmitted to [facility] for dehydration. He claims to zone out about 3 times a day when he was awake and his eyes are open, but he does not know what is going on. He denies dizziness. On admission, carotid Doppler showed no significant stenosis bilaterally. Chest x-ray showed patchy opacity in the left lung base, likely atelectasis. MRI of the brain was negative. CT of the brain was also negative. Neurology was consulted, who said that the patient's "zoning out" is likely due to obstructive sleep apnea. The patient is noncompliant and does not wear his CPAP. She also believes that the patient has peripheral neuropathy with a component of dysautonomia, which can result in blood pressure fluctuations and heart rate fluctuations. The patient was started on midodrine on admission and the blood pressure was better controlled. Cardiology was also consulted. The patient had an echo in March with preserved left ventricular systolic function. No valvular abnormalities, so there was no indication to repeat the echo. The patient was discharged home with home health for physical therapy. He was instructed to wear his CPAP, but said that it is very unlikely to happen as it makes him very uncomfortable. Vital signs stable, the patient afebrile. He will follow up with primary care, Pulmonology, and Cardiology in 1 to 2 weeks. Dictated by Tamela Young NP MD MARKUS Ladd/MODL /[id number]
--- NOTE | 2019-05-31 05:37 | Progress Note ---
DATE: 05/28/2019 Cardiology Progress Note SUBJECTIVE: The patient denies chest pain, shortness of breath, or lightheadedness. OBJECTIVE: VITAL SIGNS: Temperature 96.6 degrees, pulse 85, respiratory rate 17, blood pressure 86/50, oxygen saturation 99% on 3 L nasal cannula. GENERAL: Elderly man, chronically ill appearing, in no acute distress. LUNGS: Clear to auscultation bilaterally. No wheezes or crackles. CARDIOVASCULAR: Normal rate. Irregularly irregular. Normal S1, S2. ABDOMEN: Soft and nontender. EXTREMITIES: 2+ pitting edema bilateral lower extremities. CARDIAC MEDICATIONS: 1. Midodrine 5 mg p.o. t.i.d. 2. Xarelto 15 mg p.o. daily. 3. Metolazone 5 mg p.o. daily. 4. Plavix 75 mg p.o. daily. 5. Bumex 4 mg p.o. b.i.d. 6. Metoprolol tartrate 25 mg p.o. q.12 hours. 7. Aspirin 81 mg p.o. daily. 8. Levothyroxine 100 mcg p.o. daily. 9. Liothyronine 5 mcg p.o. daily. LABORATORY DATA: WBC 4.69, hemoglobin 9.9, hematocrit 32.7, platelets 194. Sodium 141, potassium 3.8, chloride 88, CO2 of 43, BUN 42, creatinine 1.68. TELEMETRY: Atrial fibrillation. IMPRESSION: 1. Frequent falls. 2. Suspect presyncope. 3. Acute on chronic kidney disease. 4. Coronary artery disease, status post recent stent. 5. Atrial fibrillation. 6. Chronic diastolic heart failure. 7. Hypertension. 8. Hyperlipidemia. 9. Diabetes mellitus. 10. COPD. RECOMMENDATIONS: Carotid doppler did not reveal hemodynamically significant stenosis. The patient had echocardiogram done at the end of March with preserved LV systolic function. No valvular abnormalities were appreciated. No indication to repeat echocardiogram at this time. Monitor the patient closely on telemetry while he is admitted. Check orthostatic vitals. Given chronic kidney disease, defer volume management to Nephrology. Continue current cardiac medications including anti- platelet therapy given his recent stent. Given his comorbid conditions, the patient's volume status is very tenuous as he becomes easily volume overloaded. We will watch volume status closely. Thank you for this consult. We will continue to follow. MD ROB Ceballos/STEVE /[id number]
== END 2019-05-28 12:59 | disposition home or self-care (01) ==
LOC: ER 14:10 → INTOOBSV 16:43 → ERHOLD 16:43 → MED/SURG2 20:59
PROVIDERS: ADMIT Internal Medicine; ATTEND Internal Medicine
DX: R55 Syncope and collapse (principal); N17.9 Acute kidney failure, unspecified; G47.33 Obstructive sleep apnea (adult) (pediatric); Z91.81 History of falling; I25.10 Atherosclerotic heart disease of native coronary artery without angina pectoris; E11.22 Type 2 diabetes mellitus with diabetic chronic kidney disease; I13.0 Hypertensive heart and chronic kidney disease with heart failure and stage 1 through stage 4 chronic kidney disease, or unspecified chronic kidney disease; N18.3 Chronic kidney disease, stage 3 (moderate); I50.32 Chronic diastolic (congestive) heart failure; I48.91 Unspecified atrial fibrillation; E03.9 Hypothyroidism, unspecified; J44.9 Chronic obstructive pulmonary disease, unspecified; M10.9 Gout, unspecified; E11.42 Type 2 diabetes mellitus with diabetic polyneuropathy; G25.81 Restless legs syndrome; M54.9 Dorsalgia, unspecified; K21.9 Gastro-esophageal reflux disease without esophagitis; Z72.0 Tobacco use; Z95.5 Presence of coronary angioplasty implant and graft; Z79.82 Long term (current) use of aspirin; Z79.01 Long term (current) use of anticoagulants; F41.9 Anxiety disorder, unspecified; H40.9 Unspecified glaucoma; G20 Parkinson's disease; M45.9 Ankylosing spondylitis of unspecified sites in spine; K74.60 Unspecified cirrhosis of liver; E78.5 Hyperlipidemia, unspecified; G90.8 Other disorders of autonomic nervous system; G47.52 REM sleep behavior disorder; N40.1 Benign prostatic hyperplasia with lower urinary tract symptoms; R35.1 Nocturia; Z82.49 Family history of ischemic heart disease and other diseases of the circulatory system; Z91.19 Patient's noncompliance with other medical treatment and regimen
CPT/HCPCS: 36415 ×3; 70450; 70551; 71045; 71046; 80048 ×2; 80053; 81001; 82550; 82553; 82948 ×3; 83605; 83690; 83735; 83880 ×2; 84484; 85025 ×3; 85610; 85730; 87040; 87086; 93005; 93880; 97161; 99284; G0378 ×3; J2543; J7030 ×2

== ENCOUNTER 2019-06-11 14:51 | Inpatient (IN) | payer BC, MEDICARE ==
[~2019-06-11] VITALS: Ht 175.3 cm; Wt 95.3 kg
[~2019-06-11 14:51] MED LIST changes: +MIDODRINE HCL2.5 MG PO
--- OUTSIDE RECORDS SUMMARY | 2019-06-11 14:56 | XMS REPORT | Clinical Summary ---
Author Author [facility] Address Unknown Phone Unavailable Care Team Providers Care Boiler Fitter Name Role Phone Asked, No Pcp PCP [...] by mouth 0 FIBER ORAL) every morning. 05/11/2019 Discontinued metoprolol tartrate Take 25 mg by 0 (LOPRESSOR) 25 mg tablet mouth 2 (two) times a day. 06/10/2019 metoprolol tartrate Take 0.5 30 tablet 0 (LOPRESSOR) 25 mg tablet tablets (12.5 9 mg total) by mouth 2 (two) times a day for 30 days. Active Problems Problem Noted Date COPD (chronic [...] skin tears; Jerking movements of extremities 05/05/2019 [facility] General Internal Medicine - Encounter 05/11/2019 after 06/10/2018 Social History Date Tobacco Use Types Packs/Day [...] MMODE SPECTRAL 11:00 AM CDT COLOR DOPPLER ([id number]) POC GLUCOSE Routine 05/07/2019 7:41 AM CDT [...] PRELIMINARY Routine 05/05/2019 INTERPRETATION 3:19 PM CDT AR INSERT NON-TUNNEL CV Routine 05/05/2019 CATH 3:19 PM CDT AR CRITICAL CARE, ADDL 30 Routine 05/05/2019 MIN 3:19 PM CDT AR CRITICAL CARE, E/M Routine 05/05/2019 30-74 MINUTES 3:19 PM CDT POC GLUCOSE Routine 05/05/2019 3:16 PM CDT ESTIMATED GFR STAT 05/05/2019 2:44 PM CDT COMPREHENSIVE METABOLIC STAT 05/05/2019 PANEL 2:44 PM CDT after 06/10/2018 Results * Line/Drain Removal (05/11/2019 12:41 PM [...] glucose 101 (H) 65 - 99 mg/dL [facility] Comment: HOAHAOISM [facility] Notified RN HOSPITAL Meter ID: [id number] Customer Relations Specialist: Gage Moe Specimen Performing Organization Address City/State/Zipcode Phone Number [facility] DEPARTMENT OF [address] [place] [address] PATHOLOGY AND GENOMIC MEDICINE [facility] HOAHAOISM [address] [place] [address] HOSPITAL * MRI Lumbar Spine Wo Contrast [...] L5-S1. Additional degenerative changes are detailed above. [id number] Procedure Note Hm Interface, Radiology Results 05/08/2019 [...] L5-S1. Additional degenerative changes are detailed above. [id number] Performing Organization Address City/State/Zipcode Phone Number [facility] [address] [place] [address] * MRI Thoracic Spine Wo Contrast (05/08/2019 [...] is associated cord flattening without cord hyperintensity. [facility]-[id number] Procedure Note Hm Interface, Radiology Results Incoming [...] is associated cord flattening without cord hyperintensity. [facility]-[id number] Performing Organization Address City/State/Zipcode Phone Number [facility] [address] [place] [address] * Estimated GFR (05/08/2019 6:17 AM CDT) Only the most recent of 6 results within the time period is included. Estimated GFR 52 (A) mL/min/1.73 m2 [facility] Comment: HOAHAOISM [facility] rpretation G1 >=90 Normal or high G2 60-89Mildly decreased [id number] Mildly to moderately decreased [id number] Moderately to severely decreased G4 15-29Severely decreased G5 <15Kidney failure The eGFR was calculated using the Chronic Kidney Disease Epidemiology Collaboration (CKD-EPI) equation. Interpretation is based on recommendations of the National Kidney Foundation-Kidney Disease Outcomes Quality Initiative (NKF-KDOQI) published in 2014. Specimen Plasma specimen Performing Organization Address City/State/Zipcode Phone Number [facility] DEPARTMENT OF [address] [place] [address] PATHOLOGY AND GENOMIC MEDICINE [address] * Partial thromboplastin time, activated (05/08/2019 6:17 AM CDT) Only the most recent of 3 results within the time period is included. PTT 33.1 23.0 - 36.0 sec [facility] Comment: HOAHAOISM PTT therapeutic range for HOSPITAL unfractionated heparin is 61.0-112.0 seconds which corresponds to Anti-Xa 0.3-0.7 U/ml. Specimen Blood Performing Organization Address City/[facility]/Zipcode Phone Number [facility] DEPARTMENT OF [address] [place] [address] PATHOLOGY AND [facility] MEDICINE [address] * Prothrombin time with INR (05/08/2019 6:17 AM CDT) Only the most recent of 3 results within the time period is included. Pathologist [facility] Prothrombin 17.5 (H) 11.5 - 14.5 sec [facility] [place] [facility] INR 1.5 [facility] Comment: HOAHAOISM The International Normalized HOSPITAL Ratio (INR) is a therapeutic monitoring tool for patients who are stable on oral anticoagulant therapy. An INR of 2.0-3.0 is suggested for deep vein thrombosis/pulmonary embolism. Specimen Blood Performing Organization Address City/[facility] Phone Number [facility] DEPARTMENT OF [address] [place] [address] PATHOLOGY AND GENOMIC MEDICINE [address] * CBC with platelet and differential (05/08/2019 6:17 AM CDT) Only the most recent of 4 results within the time period is included. WBC 7.75 4.50 - 11.00 k/uL [facility] RBC 3.85 (L) 4.40 - 6.00 m/uL [facility] HGB 10.9 (L) 14.0 - 18.0 g/dL [facility] HCT 36.2 (L) 41.0 - 51.0 % [facility] MCV 94.0 82.0 - 100.0 fL [facility] MCH 28.3 27.0 - 34.0 pg [facility] MCHC 30.1 (L) 31.0 - 37.0 g/dL [facility] RDW - SD 52.2 37.0 - 55.0 fL [facility] MPV 10.8 8.8 - 13.2 fL [facility] Platelet count 202 150 - 400 k/uL [facility] Nucleated RBC 0.00 /100 WBC [facility] Neutrophils 72.8 (H) 39.0 - 69.0 % [facility] Lymphocytes 14.3 (L) 25.0 - 45.0 % [facility] Monocytes 8.5 0.0 - 10.0 % [facility] Eosinophils 3.5 0.0 - 5.0 % [facility] Basophils 0.3 0.0 - 1.0 % [facility] Immature 0.6Comment: "Immature 0.0 - 1.0 % [facility] granulocytes granulocytes" (promyelocytes, HOAHAOISM myelocytes, metamyelocytes) HOSPITAL Specimen Blood Performing Organization Address [facility] Phone Number [facility] [place] [address] PATHOLOGY AND [facility] MEDICINE [address] * Phosphorus level (05/08/2019 6:17 AM CDT) Only the most recent of 5 results within the time period is included. Phosphorus 2.3 (L) 2.4 - 4.5 mg/dL [facility] Specimen Plasma specimen Performing Organization Address [facility] Phone Number [facility] [place] [address] PATHOLOGY AND GENOMIC MEDICINE [address] * Magnesium level (05/08/2019 6:17 AM CDT) Only the most recent of 4 results within the time period is included. Magnesium 2.0 1.6 - 2.4 mg/dL [facility] Specimen Plasma specimen Performing Organization Address [facility] Phone Number [facility] [place] [address] PATHOLOGY AND GENOMIC MEDICINE [address] * Venous blood gas (05/08/2019 6:17 AM CDT) Only the most recent of 4 results within the time period is included. pH, venous 7.42 7.32 - 7.42 [facility] pCO2, venous 59 (H) 45 - 51 mmHg [facility] pO2, venous 105 (H) 25 - 40 mmHg [facility] Base excess, 11 (H) -2 - 2 meq/L [facility] [place] [facility] O2 saturation, 98 (H) 40 - 70 % [facility] [place] [facility] Bicarbonate, 37.1 (H) 21.0 - 28.0 mmol/L [facility] [place] [facility] Specimen Blood Performing Organization Address City/[facility] Phone Number [facility] [place] [address] PATHOLOGY AND GENOMIC MEDICINE [address] * Ionized calcium (05/08/2019 6:17 AM CDT) Only the most recent of 3 results within the time period is included. pH 7.54 [facility] Ionized calcium 1.07 (L) 1.11 - 1.32 mmol/L [facility] Specimen Plasma specimen Performing Organization Address [facility] Phone Number [facility] [place] [address] PATHOLOGY AND GENOMIC MEDICINE [address] * Basic metabolic panel (05/08/2019 6:17 AM CDT) Only the most recent of 4 results within the time period is included. Sodium 139 135 - 148 mEq/L [facility] Potassium 3.2 (L) 3.5 - 5.0 mEq/L [facility] Chloride 94 (L) 98 - 112 mEq/L [facility] CO2 36 (H) 24 - 31 mEq/L [facility] Anion gap 9@ANIO 7 - 15 mEq/L [facility] BUN 24 (H) 8 - 23 mg/dL [facility] Creatinine 1.33 (H) 0.70 - 1.20 mg/dL [facility] Glucose 114 (H) 65 - 99 mg/dL [facility] Calcium 8.9 8.8 - 10.2 mg/dL [facility] Specimen Plasma specimen Performing Organization Address City/[facility] Phone Number [facility] [place] [address] PATHOLOGY AND GENOMIC MEDICINE [facility] [address] * Potassium level (05/07/2019 2:35 PM CDT) Potassium 3.9 3.5 - 5.0 mEq/L [facility] Specimen Plasma specimen Performing Organization Address [facility] Phone Number [facility] DEPARTMENT OF [address] [place] [address] PATHOLOGY AND GENOMIC MEDICINE [address] * XR Pelvis 3+ Vw (05/07/2019 [...] Surgical clips projecting over the pubic symphysis. [facility]-[id number] Procedure Note Interface, Radiology Results Incoming - [...] Surgical clips projecting over the pubic symphysis. [facility]-[id number] Performing Organization Address [facility] Phone Number [facility] [address] [place] [address] * Echocardiogram complete w contrast and 3D if needed (05/07/2019 11:00 AM CDT) Specimen Narrative Performed At [facility] Echocardiography Report [address] [facility] 9, [address]Name:STEVE BENEDICT.ID:[id number] .Date: 05/07/2019 Refer.MD:RASHEEDA AHMADI MD Exam Time: 10:57:00 AM Study Type:Routine Echo Height:69inWeight:194lb BSA: 2.04 m2 DOBAge:1945,73Y Sex: MALEBP:130/61 Sonogrphr: Marilee Nicholson, [facility], RVSPat. Stat.:Inpatient Room:[address] Status:Final Echo Event ID:[id number] Order ID:[id number] Reason for Study:Syncope without cardiac evidence Procedures:2D [...] RAPof 5 mmHg. MEASUREMENTS: 2D Parasternal [place] LVOT 2.2 cmLA Ds5 cm LVIDd5.1 cmIndex2.5 cm/m Ao An2.1 cm LVIDs2.7 cmAo Rtd 3.6 cm Index1.7 cm/m LV%fs 47.1 % LV Lquy040.2 g(122-174) IVSd 1.1 cmLVM Xdyep008.2 g/m2 LVPWd1.3 cmRWT0.5 LA Sng Plane LA Area 33.6 cm2(8.8-23.4) LA Vol 132.1 ml Index64.8 ml/m LA LngAx 7.1 cm DOPPLER LVOT Stroke Vol LVOT 2.2 cmLVOT CO6 l/min LVOT TVI15.9 cmLVOT CI2.9 l/m/m2 LVOT Tm242 ijjuYS54 bpm LVOT SV 60.6 ml Signed 05/07/2019 07:08 PM Ross Hodge M.D. Procedure Note Interface, Radiology Results In - 05/07/2019 7:08 PM CDT Echocardiography Report [address] [place] [address] Pat.Name: STEVE BENEDICT Pat.ID: [id number] .Date: 05/07/2019 Refer.MD: RASHEEDA AHMADI MD Exam Time: 10:57:00 AM Study Type:Routine Echo Height: 69in Weight: 194lb BSA: 2.04 m2 Age: 11 1945,73Y Sex: MALE BP: 130/61 Sonogrphr: Marilee Nicholson RDCS, RVSPat. Stat.:Inpatient Room: [place] [address] Study Status:Final Echo Event ID:[id number] Order ID: [id number] Reason for Study:Syncope without cardiac evidence Procedures:2D [...] of 5 mmHg. MEASUREMENTS: 2D Parasternal [place] LVOT 2.2 cm LA Ds 5 cm [...] PM Ross Hodge M.D. Performing Organization Address City/[facility]/Zipcode Phone Number [facility] [address] [place] [address] * Thyroid stimulating hormone (05/07/2019 4:15 AM CDT) TSH 2.16 0.27 - 4.20 uIU/mL [facility] Specimen Plasma specimen Performing Organization Address [facility] Centercode Phone Number [facility] DEPARTMENT OF [address] [place] [address] PATHOLOGY AND GENOMIC MEDICINE [address] * T4, free (05/07/2019 4:15 AM CDT) T4, free 1.2 0.9 - 1.7 ng/dL [facility] Specimen Plasma specimen Performing Organization Address [facility] Phone Number [facility] DEPARTMENT OF [address] [place] [address] PATHOLOGY AND GENOMIC MEDICINE [address] * US Renal (05/06/2019 1:55 PM CDT) Specimen Narrative Performed At EXAMINATION:US RENAL [facility] CLINICAL HISTORY:Renal failureacute (kidney injury) COMPARISON:None. FINDINGS: The right kidney orcddosh04.7 x 4.5 x 4.4 cm, parenchymal thickness 1.5 cm The left kidney hxboiqet82.5 x 4.6 x 4.5 cm, parenchymal thickness 1.5 cm There is a 6 mm equivocal right renal cyst. The left kidney contains 2 simple appearing cyst measuring 4 cm and 2.8 cm. There is no hydronephrosis. The urinary bladder is decompressed by Macedo catheter. IMPRESSION: Benign left renal cyst. Questionable right renal cyst. No hydronephrosis. [facility]-[id number] Procedure Note Interface, Radiology Results Incoming - [...] cyst. Questionable right renal cyst. No hydronephrosis. [facility]-[id number] Performing Organization Address City/State/Zipcode Phone Number [facility] [address] [place] [address] * Comprehensive metabolic panel (05/06/2019 5:00 AM CDT) Only the most recent of 2 results within the time period is included. Sodium 142 135 - 148 mEq/L [facility] Potassium SEE COMMENT 3.5 - 5.0 mEq/L [facility] Comment: HOAHAOISM Footnote--------- HOSPITAL SPECIMEN HEMOLYZED.RECOLLECT REQUESTED FOR K+ AND AST. Chloride 95 (L) 98 - 112 mEq/L [facility] CO2 38 (H) 24 - 31 mEq/L [facility] Anion gap 9@ANIO 7 - 15 mEq/L [facility] BUN 87 (H) 8 - 23 mg/dL [facility] Creatinine 1.82 (H) 0.70 - 1.20 mg/dL [facility] Glucose 135 (H) 65 - 99 mg/dL [facility] Calcium 8.6 (L) 8.8 - 10.2 mg/dL [facility] Protein 5.9 (L) 6.3 - 8.3 g/dL [facility] Comment: [facility] 4.6-7.0 g/dL 1 week 4.4-7.6 g/dL 7 months-1year 5.1-7.3 g/dL 1-2 years5.6-7 .5 g/dL >3 years6.0-8 .0 g/dL 18-150 6.3-8.3 g/dL Albumin 3.1 (L) 3.5 - 5.0 g/dL [facility] A/G ratio 1.1 0.7 - 3.8 [facility] Alkaline 67 40 - 129 U/L [facility] phosphatase [facility] AST SEE COMMENTComment: 10 - 50 U/L [facility] Footnote--------- [facility] ALT 20 5 - 50 U/L [facility] Total bilirubin 0.5 0.0 - 1.2 mg/dL [facility] Specimen Plasma specimen Performing Organization Address City/[facility]/Zipcode Phone Number [facility] [place] [address] PATHOLOGY AND GENOMIC MEDICINE [address] * Blood culture, aerobic & anaerobic (05/05/2019 9:20 PM CDT) Only the most recent of 2 results within the time period is included. Blood culture No growth after 5 days of [facility] isolate incubation. HOAHAOISM Comment: HOSPITAL Specimen Information Specimen Source: Blood Specimen Site: Forearm, left Specimen Blood - Forearm, left Performing Organization Address City/[facility] Phone Number [facility] [place] [address] PATHOLOGY AND [facility] MEDICINE [address] * Lactic acid level (05/05/2019 9:05 PM CDT) Lactic acid 1.4 0.5 - 2.2 mmol/L [facility] Specimen Blood Performing Organization Address City/[facility] Phone Number [facility] [place] [address] PATHOLOGY AND GENOMIC MEDICINE [address] * Ammonia level (05/05/2019 9:05 PM CDT) Ammonia 20 16 - 60 umol/L [facility] Specimen Blood Performing Organization Address City/[facility] Phone Number [facility] [place] [address] PATHOLOGY AND GENOMIC MEDICINE [address] * CT Chest Wo Contrast Abdomen [...] 3.Chronic and incidental findings as detailed above. [facility]-[id number] Procedure Note Hm Interface, Radiology Results Incoming [...] Chronic and incidental findings as detailed above. [facility]-[id number] Performing Organization Address City/[facility]/Zipcode Phone Number [facility] [address] [place] [phone] * Urinalysis screen and microscopy, with reflex to culture (05/05/2019 7:22 PM CDT) Specimen site Clean catch [facility] Color, UA Straw [facility] Appearance, UA Clear [facility] Specific 1.013 1.001 - 1.035 [facility] gravity, [facility] pH, UA 6.0 5.0 - 8.5 [facility] Protein, UA Negative Negative [facility] Glucose, UA Negative Negative [facility] Ketones, UA Negative Negative [facility] Bilirubin, UA Negative Negative [facility] Blood, UA Negative Negative [facility] Nitrite, UA Negative Negative [facility] Urobilinogen, <2.0 <2.0 [facility] Leukocyte Negative Negative [facility] esterase, [facility] Epithelial <1 /HPF [facility] cells, [facility] WBC, UA None seen 0 - 1 /HPF [facility] RBC, UA <1 0 - 5 /HPF [facility] Bacteria, UA None seen None seen [facility] Yeast, UA None seen [facility] Yeast with None seen [facility] Hyaline casts, 12 /LPF [facility] Specimen Urine Performing Organization Address City/State/Zipcode Phone Number [facility] DEPARTMENT [facility] [place] [address] PATHOLOGY AND GENOMIC MEDICINE [address] * Hemoglobin & hematocrit (05/05/2019 7:22 PM CDT) HGB 13.5 (L) 14.0 - 18.0 g/dL [facility] HCT 43.2 41.0 - 51.0 % [facility] Specimen Blood Performing Organization Address City/State/Zipcode Phone Number [facility] DEPARTMENT OF [address] [place] [address] PATHOLOGY [place] [address] HOSPITAL * Urine drugs of abuse screen (05/05/2019 7:22 PM CDT) Pathologist [facility] Amphetamine Negative [facility] screen, urine [facility] Barbiturate Negative [facility] screen, urine [facility] Benzodiazepine Negative [facility] screen, urine [facility] Cocaine screen, Negative [facility] urine [facility] Methadone Negative [facility] metabolite HOAHAOISM (EDDP), urine [facility] Opiates screen, Positive (A) [facility] urine [facility] Oxycodone Negative [facility] screen, urine [facility] Phencyclidine Negative [facility] screen, urine [facility] Tricyclic Negative [facility] screen, urine [facility] Cannabinoid Negative [facility] screen, urine Comment: HOAHAOISM Drug screen minimum HOSPITAL concentration of detectability [...] is required. Specimen Urine Performing Organization Address [facility] Centercode Phone Number [facility] [place] [address] PATHOLOGY AND GENOMIC MEDICINE [address] * Urine culture (05/05/2019 7:22 PM CDT) [facility] Urine culture SEE COMMENTComment: [facility] Bacteriuria screen negative. [facility] Specimen Performing Organization Address City/[facility]/Zipcode Phone Number [facility] [place] [address] PATHOLOGY AND GENOMIC MEDICINE [address] * XR Chest 1 Vw Portable [...] There is hardware in the cervical spine. [facility]-[id number] Procedure Note Interface, Radiology Results Incoming - 05/05/2019 7:09 PM CDT EXAMINATION: XR CHEST 1 VW PORTABLE CLINICAL HISTORY: SOB COMPARISON: None IMPRESSION: Heart size and pulmonary vasculature are normal. There is linear atelectasis in the left lower lung zone. No focal infiltrate, effusion or pneumothorax seen. There are spondylotic changes in the spine. There is hardware in the cervical spine. [facility]-[id number] Performing Organization Address City/State/Zipcode Phone Number [facility] [address] [place] [address] * CT Head Wo Contrast (05/05/2019 6:21 [...] No CT evidence of acute intracranial abnormality. [id number] Procedure Note Interface, Radiology Results Incoming - [...] No CT evidence of acute intracranial abnormality. [id number] Performing Organization Address City/[facility]/Zipcode Phone Number [facility] [address] [place] [phone] * Type and screen (05/05/2019 3:33 PM CDT) ABO grouping O [facility] Rh type POS [facility] Antibody screen NEG [facility] (gel) [facility] Specimen Blood Performing Organization Address City/[facility]/Zipcode Phone Number [facility] DEPARTMENT OF [address] [place] [address] PATHOLOGY AND GENOMIC MEDICINE [address] * ECG 12 lead (05/05/2019 3:25 PM CDT) Ventricular 88 [facility] rate Atrial rate 340 [facility] QRSD interval 104 [facility] QT interval 368 [facility] QTC interval 445 [facility] MUSE QRS axis 1 -23 [facility] MUSE T wave axis 39 [facility]USE EKG impression Atrial fibrillation-Abnormal [facility] MUSE ECG-- Specimen Narrative Performed At Performing Organization Address [facility] Cent[facility]ode Phone Number [facility] MUSE [address] [place] [address] * ECG ED Preliminary Interpretation - Not an Order (05/05/2019 3:19 PM CDT) Narrative Performed At Eunice Reyes MD 05/05/20199:37 PM ECG ED Preliminary Interpretation - Not an Order Performed by: Eunice Reyes MD Authorized by: Eunice Reyes MD ECG reviewed by ED Physician in the absence of a rn appeals: yes Interpretation: Interpretation: abnormal Rate: ECG rate:88 [...] nerve damage and pneumothorax Alternatives discussed:Alternative treatment [place] protocol: Procedure explained and questions answered to [...] of procedure:Tolerated well, no immediate complications after 06/10/2018 Insurance Type Payer Benefit Subscriber ID Effective Phone Address Plan / Dates Group PPO [employer] MEDICARE HUMANA xxxxxxxxx 2019-P MEDICARE resent PPO/PFFS/E [facility] Advance Directives Patient has advance care planning documents on file. For more information, marcella howell contact: Juan Pablo Colbert [address] [place] [address]
--- OUTSIDE RECORDS SUMMARY | 2019-06-11 14:57 | XMS REPORT | Continuity of Care Document ---
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 11/20/2017 [facility] M54.9 DORSALGIA, UNSPECIFIED G95.9 DISE Active 06/12/2016 [facility] 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, UNSPECIFIE Active 04/04/2016 [facility] DX: M54.4=LUMBAGO WITH SCIATICA, UNSPECI Active 03/26/2016 [facility] R53.1 - WEAKNESS Active 03/18/2016 [facility] Spinal stenosis, lumbar region without neurogenic claudication 03/12/2018 [facility] Spinal stenosis, cervical region 03/12/2018 [facility] Spinal stenosis, cervicothoracic region 03/12/2018 [facility]ib [facility] [place] Arthritis Resolved Problem 05/30/2019 [facility], [facility] Arthropathy Resolved Problem 05/30/2019 [facility], [facility] Atrial fibrillation and flutter Resolved Problem 05/30/2019 [facility], [facility] Backache Resolved Problem 05/30/2019 [facility], [facility] Benign prostatic hyperplasia with lower urinary tract symptoms Resolved Problem 05/30/2019 [facility], [facility] Bronchitis Resolved Problem 05/30/2019 [facility], [facility] Cataract Resolved Problem 05/30/2019 [facility], [facility] Chronic kidney disease (Confirmed) Resolved Problem 05/30/2019 [facility], [facility] COPD Resolved Problem 05/30/2019 [facility], [facility] Diabetes mellitus type 1 Resolved Problem 05/30/2019 [facility], [facility] Diabetes Resolved Problem 05/30/2019 [facility], [facility] Glaucoma Resolved Problem 05/30/2019 [facility], [facility] Gout Resolved Problem 05/30/2019 [facility], [facility] Hypertension Resolved Problem 05/30/2019 [facility], [facility] Impotence, organic Resolved Problem 05/30/2019 [facility], [facility] Urinary frequency Resolved Problem 05/30/2019 [facility], [facility] Mumps Resolved Problem 05/30/2019 [facility], [facility] Neuropathy Resolved Problem 05/30/2019 [facility], [facility] Nocturia Resolved Problem 05/30/2019 [facility], [facility] Obesity Active Problem 05/30/2019 [facility], [facility] Peripheral vascular disease Resolved Problem 05/30/2019 [facility], [facility] Seborrheic dermatitis Resolved Problem 05/30/2019 [facility], [facility] Sleep apnea Resolved Problem 05/30/2019 [facility], [facility] Urgency of urination Resolved Problem 05/30/2019 [facility], [facility] Other specified urinary incontinence Resolved Problem 05/30/2019 [facility], [facility] UTI (Confirmed) Resolved Problem 05/30/2019 [facility], [facility] Vertigo Resolved Problem 05/30/2019 [facility], [facility] Atrial fibrillation (disorder) Resolved Problem 06/05/2019 [facility] Arthritis (disorder) Resolved Problem 06/05/2019 [facility] Arthropathy (disorder) Resolved Problem 06/05/2019 [facility] Atrial fibrillation and flutter (disorder) Resolved Problem 06/05/2019 [facility] Backache (finding) Resolved Problem 06/05/2019 [facility] Benign prostatic hyperplasia (disorder) Resolved Problem 06/05/2019 [facility] Bronchitis (disorder) Resolved Problem 06/05/2019 [facility] Cataract (disorder) Resolved Problem 06/05/2019 [facility] Chronic kidney disease (disorder) Resolved Problem 06/05/2019 [facility] Chronic obstructive lung disease (disorder) Resolved Problem 06/05/2019 [facility] Diabetes mellitus type 1 (disorder) Resolved Problem 06/05/2019 [facility] Diabetes mellitus (disorder) Resolved Problem 06/05/2019 [facility] Glaucoma (disorder) Resolved Problem 06/05/2019 [facility] Gout (disorder) Resolved Problem 06/05/2019 [facility] Hypertensive disorder, systemic arterial (disorder) Resolved Problem 06/05/2019 [facility] Impotence of organic origin (disorder) Resolved Problem 06/05/2019 [facility] Increased frequency of urination (finding) Resolved Problem 06/05/2019 [facility] Mumps (disorder) Resolved Problem 06/05/2019 [facility] Neuropathy (disorder) Resolved Problem 06/05/2019 [facility] Nocturia (finding) Resolved Problem 06/05/2019 [facility] Obesity (disorder) Active Problem 06/05/2019 [facility] Peripheral vascular disease (disorder) Resolved Problem 06/05/2019 [facility] Seborrheic dermatitis (disorder) Resolved Problem 06/05/2019 [facility] Sleep apnea (finding) Resolved Problem 06/05/2019 [facility] Urgent desire to urinate (finding) Resolved Problem 06/05/2019 [facility] Urinary incontinence (finding) Resolved Problem 06/05/2019 [facility] Urinary tract infectious disease (disorder) Resolved Problem 06/05/2019 [facility] Vertigo (finding) Resolved Problem 06/05/2019 [facility] CHF Active Problem 05/04/2019 [facility] COPD exacerbation Active Problem 05/04/2019 [facility] Chronic renal insufficiency Active Problem 05/04/2019 [facility] Cirrhosis Active Problem 05/04/2019 [facility] Hemoptysis Active Problem 05/28/2019 [facility] Pedal edema Active Problem 05/04/2019 [facility] Pneumonia Active Problem 05/28/2019 [facility] Cellulitis of both lower extremities Active Problem 05/28/2019 [facility] Hypokalemia Active Problem 05/28/2019 [facility] Atrial fibrillation Active Problem 05/28/2019 [facility] Congestive heart failure Active Problem 05/28/2019 [facility] Chronic obstructive pulmonary disease Active Problem 05/28/2019 [facility] Obstructive chronic bronchitis with exacerbation Active Problem 05/28/2019 [facility] Chronic renal impairment Active Problem 05/28/2019 [facility] Hepatic cirrhosis Active Problem 05/28/2019 [facility] Pre-syncope Active Problem 05/28/2019 [facility] Edema of foot Active Problem 05/28/2019 [facility] DORSALGIA, UNSPECIFIED Active [facility] DISEASE OF SPINAL CORD, UNSPECIFIED Active [facility] Medications Medication Details Route Status Patient Instructions Ordering Provider Order Date Source 24 HR mirabegron 50 MG Extended Release Tablet [Myrbetriq] 50 mg=1 tab, PO, Daily, # 90 tab, 1 Refill(s), Pharmacy: [facility] #[id number] Active 06/02/2019 [facility] Midodrine Hcl 2.5 Mg Tablet Tid@08,12,16 Active [facility] 05/28/2019 [facility] Baclofen 10 Mg Tablet, 10 Mg Oral Three Times A Day Active 05/28/2019 [facility] Levofloxacin 500 MG Oral Tablet [Levaquin] 500 mg=1 tab, PO, Q24H, X 7 day, # 7 tab, 0 Refill(s), Pharmacy: [facility] [id number] Active 05/18/2019 [facility] Bumetanide 1 Mg Tablet Twice A Day Active [facility] 05/04/2019 [facility] Lidocaine Patch 1 Ea Patch Q24h Active [facility] 05/04/2019 [facility] Metolazone 5 Mg Tablet Daily Active [facility] 05/04/2019 [facility] Tamsulosin Hcl (Flomax*) 0.4 Mg Cap Bedtime Active [facility] 05/04/2019 [facility] Bumetanide 2 Mg Tablet, 2 Mg Oral Twice A Day Active 05/04/2019 [facility] Carisoprodol (Soma) 350 Mg Tablet, 350 Mg Oral Daily as needed for Pain Active 04/23/2019 [facility] Cholecalciferol (Vitamin D3) (Vitamin D3) 2,000 Unit Capsule, 6000 Units Oral Bedtime Active 04/23/2019 [facility] Cosentyx , 150 Mg Active 04/23/2019 [facility] Folic Acid 1 Mg Tablet, 400 Mcg Oral Twice A Day Active 04/23/2019 [facility] Guaifenesin (Mucus Relief) 400 Mg Tablet, 400 Mg Oral Twice A Day Active 04/23/2019 [facility] Hydromorphone Hcl 2 Mg Tablet, 8 Mg Oral As Needed as needed for Prn Active 04/23/2019 [facility] Metolazone 5 Mg Tablet, 5 Mg Oral Active 04/23/2019 [facility] Pantoprazole Sodium (Protonix) 40 Mg Tablet.dr, 40 Mg Oral Bedtime Active 04/23/2019 [facility] Sodium Chloride For Inhalation (Hyper-Lamine) 4 Ml Vial.neb, 7 % Inhalation Daily as needed for Nasal Congestion Active 04/23/2019 [facility] Spironolact/Hydrochlorothiazid (Aldactazide 50-50 Tablet) 1 Each Tablet, 1 Tab Oral Daily Active 04/23/2019 [facility] Vitamin B12 , 77183 Mcg Oral Use As Directed Active 04/23/2019 [facility] allopurinol 300 mg oral tablet 300 mg=1 tab, PO, Daily, # 90 tab, 1 Refill(s) Active 04/19/2019 [facility] methenamine hippurate 1 gm, PO, Daily, 0 Refill(s) Active 04/19/2019 [facility] Dulcolax Laxative =1 supp, OR, Daily, PRN constipation, # 5 supp, 0 Refill(s) Active 04/19/2019 [facility] Colchicine 0.6 mg, PO, Daily, 0 Refill(s) Active 04/19/2019 [facility] Sucralfate (Carafate) 1 Gm Tablet Before Meals Active [facility] 02/15/2019 [facility] Clindamycin Hcl 300 Mg Capsule, 300 Mg Oral Three Times A Day Active 02/15/2019 [facility] Bumex Twice A Day Active [facility] 01/09/2019 [facility] Potassium Chloride (K-Dur) 20 Meq Tab.er.prt, 20 Meq Oral Every 12 Hours Active 01/09/2019 [facility] Prednisone 10 Mg Tab, 30 Mg Oral Daily Active 12/30/2018 [facility] Prednisone 20 Mg Tab, 20 Mg Oral Daily Active 12/30/2018 [facility] Prednisone 10 Mg Tab, 10 Mg Oral Daily Active 12/30/2018 [facility] Albuterol Sulfate (Proair Hfa Inhaler*) 8.5 Gm Inh, 3 Inh Active 12/11/2018 [facility] Alclometasone Dipropionate 15 Gm Cream..g., 1 Applic Topically Daily Active 12/11/2018 [facility] Albuterol Sulfate (Proair Hfa Inhaler*) 8.5 Gm Inh, 2 Inh Inhalation Daily Active 12/07/2018 [facility] Clobetasol Propionate 1 Ea/15 Gm Cr, 1 Applic Topically Daily Active 12/07/2018 [facility] Mirabegron (Myrbetriq) 50 Mg Tab.er.24h, 50 Mg Oral Every Morning Active 12/07/2018 [facility] Rapatha Injection , 140 Mg Intramusc Use As Directed Active 12/07/2018 [facility] Spironolactone (Aldactone) 50 Mg Tablet, 50 Mg Oral As Needed Active 12/07/2018 [facility] Fosfomycin 33.3 MG/ML Oral Suspension [Monurol] =1 Pack, PO, ONCE, # 3 gm, 0 Refill(s), Pharmacy: [facility] [id number] Active 12/03/2018 [facility] 24 HR mirabegron 50 MG Extended Release Tablet [Myrbetriq] See Instructions, TAKE 1 TABLET BY MOUTH EVERY DAY, # 90 tab, 0 Refill(s), Pharmacy: [facility] [id number], please have patient call for appt prior to next refill Active 11/05/2018 [facility] Folic Acid 1 Mg Tablet, 1 Mg Oral Twice A Day Active 11/05/2018 [facility] Warfarin Sodium 3 Mg Tablet, 3 Mg Oral Daily Active 11/05/2018 [facility] Azithromycin (Zithromax) 500 Mg Tablet, 500 Mg Oral Daily Active [facility] 09/16/2018 [facility] Sulfamethoxazole/Trimethoprim (Bactrim Ds Tablet) 1 Each Tablet, 1 Each Oral Twice A Day Active [facility] 09/16/2018 [facility] Albuterol Sulf (Proventil 0.083% Neb) 3 Ml Nebu, 3 Ml Inhalation Every 12 Hours Active 09/13/2018 [facility] Albuterol Sulfate (Proair Hfa Inhaler*) 8.5 Gm Inh, 1 Inh Inhalation Three Times A Day Active 09/13/2018 [facility] Albuterol Sulfate (Proair Hfa Inhaler*) 8.5 Gm Inh, Active 09/13/2018 [facility] Cyanocobalamin (Vitamin B-12) (Vitamin B-12) 2,000 Mcg Tablet.er, 2000 Mcg Weekly Active 09/13/2018 [facility] Duloxetine Hcl (Cymbalta) 30 Mg Capsule.dr, 60 Mg Oral Bedtime Active 09/13/2018 [facility] Fe Fumarate/Vit C/B12-If/Fa (Ferocon Capsule) 1 Each Capsule, 1 Cap Oral Daily Active 09/13/2018 [facility] Formoterol Fumarate (Perforomist) 20 Mcg/2 Ml Vial.neb, 20 Mcg Inhalation Daily Active 09/13/2018 [facility] Liraglutide (Victoza 3-Asad) 0.6 Mg/0.1 Ml Pen.injctr, 1.8 Mg Injection Every Morning Active 09/13/2018 [facility] [place]-3/Dha/Epa/Fish Oil (Fish Oil [place]-3 Softgel) 1 Each Capsule.dr, 1 Tab Oral Twice A Day Active 09/13/2018 [facility] Repaglinide (Prandin) 1 Mg Tab, 0.5 Tab Oral As Needed Active 09/13/2018 [facility] Tamsulosin Hcl 0.4 Mg Cap.er.24h, 0.8 Mg Oral Every 12 Hours Active 09/13/2018 [facility] Testoterone , 1 Ml Active 09/13/2018 [facility] Metoprolol Tartrate (Lopressor) 25 Mg Tab Every 12 Hours Active Mike 06/11/2017 [facility] Azithromycin (Z-Asad) 250 Mg Tablet, 500 Mg Oral Daily Active Mike 06/11/2017 [facility] Docusate Sodium (Colace) 100 Mg Capsule, 100 Mg Oral Three Times A Day Active Mike 06/11/2017 [facility] Furosemide 40 Mg Tablet, 80 Mg Oral Bid@,18 Active Mike 06/11/2017 [facility] Metoprolol Tartrate 25 Mg Tablet, 12.5 Mg Oral Twice A Day Active 06/11/2017 [facility] Polyethylene Glycol 3350 (Miralax) 17 Gm Powd.pack, 17 Gm Oral Twice A Day Active Mike 06/11/2017 [facility] Prednisone 20 Mg Tab, 40 Mg Oral Daily Active Mike 06/11/2017 [facility] Warfarin Sodium (Coumadin) 5 Mg Tablet, 5 Mg Oral Daily At 1700 Active Mike 06/11/2017 [facility] Warfarin Sodium (Coumadin) 5 Mg Tablet, 3 Mg Oral Today At 5:00PM Active 06/11/2017 [facility] Furosemide (Lasix) 40 Mg Tablet, 2 Mg Oral Twice A Day Active 06/04/2017 [facility] Furosemide (Lasix) 40 Mg Tablet, 80 Mg Oral Twice A Day Active 06/04/2017 [facility] Ibuprofen 400 Mg Tablet, 600 Mg Oral Every 6 Hours as needed for Pain Active 06/04/2017 [facility] Mucas , 400 Mcg Oral Twice A Day Active 06/04/2017 [facility] Servent Disk , 50 Mcg Inhalation Twice A Day Active 06/04/2017 [facility] Warfarin Sodium (Coumadin) 5 Mg Tablet, 3 Mg Oral Today At 5:00PM Active 06/04/2017 [facility] Warfarin Sodium (Coumadin) 2 Mg Tablet, 2 Mg Oral Daily Active 06/04/2017 [facility] Warfarin Sodium (Coumadin) 2.5 Mg Tablet, 2.5 Mg Oral Daily Active 06/04/2017 [facility] Warfarin Sodium (Coumadin) 5 Mg Tablet, 5 Mg Oral Today At 5:00PM Active 06/04/2017 [facility] Aspirin 325 Mg Tablet, 81 Mg Oral Daily Active 05/07/2017 [facility] Bupivacaine Hcl (Marcaine) 2.5 Mg/1 Ml Vial, 1.143 Mg Daily Active 05/07/2017 [facility] Carisoprodol 350 Mg Tablet, 350 Mg Oral as needed Active 05/07/2017 [facility] Fenofibric Acid (Choline) (Trilipix) 135 Mg Capsule., 135 Mg Oral Daily Active 05/07/2017 [facility] Hydrocodone Bit/Acetaminophen (Hydrocodone-Apap 10-325 Mg Tab) 1 Each Tablet, 1 Each Oral as needed Active 05/07/2017 [facility] Hydrocodone Bit/Acetaminophen (Hydrocodon-Acetaminophn 10-325) 1 Each Tablet, 10 Mg Oral As Needed Active 05/07/2017 [facility] Latanoprost 2.5 Ml Drops, 2.5 Ml Ophthalmic Daily Active 05/07/2017 [facility] Linagliptin (Tradjenta) 5 Mg Tablet, 5 Mg Oral Daily Active 05/07/2017 [facility] Morphine Pump , 12.7 Mg Daily Active 05/07/2017 [facility] Multivitamin (Multivitamins) 1 Each Tab.chew, Oral Daily Active 05/07/2017 [facility] Omeprazole 40 Mg Capsule., 40 Mg Oral Daily Active 05/07/2017 [facility] Polyethylene Glycol 3350 (Clearlax) 17 Gm Powd.pack, As Needed Active 05/07/2017 [facility] Testosterone (Testopel) 75 Mg Pellet.ea., 75 Mg Active 05/07/2017 [facility] Torsemide 20 Mg Tablet, 20 Mg Oral Twice A Day Active 05/07/2017 [facility] Zolpidem Tartrate (Ambien) 10 Mg Tablet, 10 Mg Oral Bedtime Active 05/07/2017 [facility] Axiron , 30 Mg Daily Active 09/01/2013 [facility] Caltrate +D , Oral Twice A Day Active 09/01/2013 [facility] Furosemide 40 Mg Tablet, 40 Mg Oral Daily Active 09/01/2013 [facility] Marcaine , Daily Active 09/01/2013 [facility] Morphine Pump , Daily Active 09/01/2013 [facility] Zolpidem Tartrate (Ambien Cr) 12.5 Mg Tab.mphase, 12.5 Mg Oral Daily Active 09/01/2013 [facility] Aclometasone 0.05% 1 Each Daily Active [facility] Albuterol Sulfate 0.63 Mg/3 Ml Vial.neb Twice A Day Active [facility] Albuterol Sulfate (Proair Hfa Inhaler*) 8.5 Gm Inh Daily Active PATIENT TAKES 3-5 PUFFS INHALATION [facility] Alprazolam 0.5 Mg Tab.rapdis As Needed Active [facility] Aspirin (Aspir 81) 81 Mg Tablet.dr Daily Active [facility] Baclofen 10 Mg Tablet Three Times A Day Active [facility] Budesonide 0.5 Mg/2 Ml Ampul.neb Twice A Day Active [facility] Carisoprodol (Soma) 350 Mg Tablet Daily as needed for Pain Active [facility] Cholecalciferol (Vitamin D3) (Vitamin D3) 2,000 Unit Capsule Bedtime Active [facility] Clobetasol Propionate 1 Ea/15 Gm Cr Daily Active [facility] Clopidogrel Bisulfate (Clopidogrel) 75 Mg Tablet Daily Active [facility] Cosentyx Qmonth Active [facility] Dilaudid Pain Pump Use As Directed Active DILAUDID 6.225MG AND 0.9773MG MARCAINE DAILY DELIVERED BY PAIN PUMP [facility] Fe Fumarate/Vit C/B12-If/Fa (Ferocon Capsule) 1 Each Capsule Daily Active [facility] Folic Acid 1 Mg Tablet Twice A Day Active [facility] Guaifenesin (Mucus Relief) 400 Mg Tablet Twice A Day Active [facility] Hydromorphone Hcl 2 Mg Tablet As Needed as needed for Prn Active [facility] Latanoprost 2.5 Ml Drops Bedtime Active [facility] Levothyroxine Sodium 50 Mcg Tablet Daily Active [facility] Liothyronine Sodium 5 Mcg Tablet Every Morning Active [facility] Mirabegron (Myrbetriq) 50 Mg Tab.er.24h Daily Active [facility] Pantoprazole Sodium (Protonix) 40 Mg Tablet.dr Bedtime Active [facility] Pramipexole Di-Hcl (Pramipexole Dihydrochloride) 0.25 Mg Tablet Bedtime Active [facility] Psyllium Husk (Wal-Mucil) 0.52 Gm Capsule Daily Active [facility] Rapatha Injection Use As Directed Active PATIENT TAKES EVERY 2 WEEKS [facility] Rivaroxaban (Xarelto) 10 Mg Tablet Bedtime Active [facility] Ropinirole Hcl 0.25 Mg Tablet Bedtime Active [facility] Sertraline Hcl 50 Mg Tablet Bedtime Active [facility] Sodium Chloride For Inhalation (Hyper-Lamine) 4 Ml Vial.neb Daily as needed for Nasal Congestion Active [facility] Spironolact/Hydrochlorothiazid (Aldactazide 50-50 Tablet) 1 Each Tablet Daily Active [facility] Testosterone Cypionate 200 Mg/1 Ml Vial Active every 2 weeks [facility] Vitamin B12 Use As Directed Active ONCE A WEEK [facility] Aclovate Daily Active [facility] Alprazolam 0.5 Mg Tablet As Needed Active [facility] Bumetanide 2 Mg Tablet Twice A Day Active [facility] Cosentyx 150 Mg .monthly Active [facility] Hydromorphone/Bupiv/0.9NACL/Pf (Hydromor-Bupiva 10 Mcg-0.0625%) 100 Ml Pump.resvr Daily Active [facility] Metolazone 5 Mg Tablet Active TAKE 30 MINUTES PRIOR TO BUMEX DOSE [facility] Rivaroxaban (Xarelto) 15 Mg Tablet Daily Active [facility] Alcometasone Daily Active [facility] Allopurinol 300 Mg Tablet Bedtime Active [facility] Potassium Chloride 20 Meq Tab.er.prt Twice A Day Active [facility] Allergies, Adverse Reactions, Alerts Substance Category Reaction Severity Reaction type Status Date Reported Comments Source No Known Drug Allergies Unknown Allergy to Substance Active 05/26/2019 [facility] No Known Medication Allergies Assertion Drug allergy Medical Group Immunizations No Data Provided for This Section Results Order Name Results Value Reference Range Date Interpretation Comments Source Capillary blood glucose measurement by glucometer (mass/volume) 89 70 - 120 05/28/2019 [facility] Blood leukocytes automated count (number/volume) 4.69 4.8 - 10.8 05/28/2019 [facility] Blood erythrocytes automated count (number/volume) 3.65 4.3 - 5.7 05/28/2019 [facility] Blood hemoglobin measurement (moles/volume) 9.9 14.0 - 18.0 05/28/2019 [facility] Automated blood hematocrit (volume fraction) 32.7 38.2 - 49.6 05/28/2019 [facility] Automated erythrocyte mean corpuscular volume 89.6 81 - 99 05/28/2019 [facility] Automated erythrocyte mean corpuscular hemoglobin (mass per erythrocyte) 27.1 28 - 32 05/28/2019 [facility] Automated erythrocyte mean corpuscular hemoglobin concentration measurement (mass/volume) 30.3 31 - 35 05/28/2019 [facility] RDW BldCo-Rto 15.2 11.7 - 14.4 05/28/2019 [facility] Automated blood platelet count (count/volume) 194 140 - 360 05/28/2019 [facility] Automated blood segmented neutrophil count as percentage of total leukocytes 54.5 38.7 - 80.0 05/28/2019 [facility] Automated blood lymphocyte count as percentage ot total leukocytes 23.2 18.0 - 39.1 05/28/2019 [facility] Automated blood monocyte count as percentage of total leukocytes 15.1 4.4 - 11.3 05/28/2019 [facility] Automated blood eosinophil count as percentage of total leukocytes 6.4 0.0 - 6.0 05/28/2019 [facility] Automated blood basophil count as percentage of total leukocytes 0.6 0.0 - 1.0 05/28/2019 [facility] IM GRANULOCYTES % 0.2 0.0 - 1.0 05/28/2019 [facility] Automated blood neutrophil count 2.6 2.1 - 6.9 05/28/2019 [facility] Blood lymphocytes count (number/volume) 1.1 1.0 - 3.2 05/28/2019 [facility] Blood monocytes automated count (number/volume) 0.7 0.2 - 0.8 05/28/2019 [facility] Automated blood eosinophil count 0.3 0.0 - 0.4 05/28/2019 [facility] Automated blood basophil count (count/volume) 0.0 0.0 - 0.1 05/28/2019 [facility] Absolute Immature Granulocyte (auto 0.01 0 - 0.1 05/28/2019 [facility] Serum or plasma sodium measurement (moles/volume) 141 136 - 145 05/28/2019 [facility] Serum or plasma potassium measurement (moles/volume) 3.8 3.5 - 5.1 05/28/2019 [facility] Serum or plasma chloride measurement (moles/volume) 88 98 - 107 05/28/2019 [facility] Serum or plasma carbon dioxide, total measurement (moles/volume) 43 22 - 29 05/28/2019 [facility] Serum or plasma anion gap 13.8 8 - 16 05/28/2019 [facility] Serum or plasma urea nitrogen measurement (mass/volume) 43 7 - 26 05/28/2019 [facility] Serum or plasma creatinine measurement (mass/volume) 1.68 0.72 - 1.25 05/28/2019 [facility] Serum or plasma urea nitrogen/creatinine mass ratio 26 6 - 25 05/28/2019 [facility] Estimated glomerular filtration rate (GFR) determination 40 60 05/28/2019 [facility] Glucose measurement 98 74 - 118 05/28/2019 [facility] Serum or plasma calcium measurement (mass/volume) 9.5 8.4 - 10.2 05/28/2019 [facility] Serum or plasma magnesium measurement (mass/volume) 2.2 1.3 - 2.1 05/27/2019 [facility] BNP Bld-mCnc 328.4 0 - 100 05/27/2019 [facility] Lactic Acid Level 14.1 4.5 - 19.8 05/26/2019 [facility] Blood culture NO GROWTH AFTER 24 HOURS 05/26/2019 [facility] Urine color determination YELLOW YELLOW 05/26/2019 [facility] Urine clarity CLEAR CLEAR 05/26/2019 [facility] Specific gravity of Urine by Test strip 1.010 1.010 - 1.025 05/26/2019 [facility] Urine pH measurement by automated test strip 7 5 - 7 05/26/2019 [facility] Urine leukocyte esterase detection by automated test strip NEGATIVE NEGATIVE 05/26/2019 [facility] Urine nitrite detection by automated test strip NEGATIVE NEGATIVE 05/26/2019 [facility] Urine protein detection by automated test strip NEGATIVE NEGATIVE 05/26/2019 [facility] Urine glucose detection by automated test strip NEGATIVE NEGATIVE 05/26/2019 [facility] Urine ketones detection by automated test strip NEGATIVE NEGATIVE 05/26/2019 [facility] Urine urobilinogen measurement by test strip (mass/volume) 0.2 0.2 - 1 05/26/2019 [facility] Urine total bilirubin detection NEGATIVE NEGATIVE 05/26/2019 [facility] Urine erythrocytes detection NEGATIVE NEGATIVE 05/26/2019 [facility] Automated urine sediment leukocyte count by microscopy (number/high power field) 0-5 0 - 5 05/26/2019 [facility] Erythrocytes detection in urine sediment by light microscopy NONE 0 - 5 05/26/2019 [facility] Bacteria detection in urine sediment by light microscopy NONE NONE 05/26/2019 [facility] Epithelial cells detection in urine sediment by light microscopy RARE NONE 05/26/2019 [facility] Renal epithelial cells detection in urine sediment by light microscopy RARE NONE 05/26/2019 [facility] Prothrombin time (PT) in platelet poor plasma by coagulation assay 18.3 11.9 - 14.5 05/26/2019 [facility] INR in Platelet poor plasma by Coagulation assay 1.46 05/26/2019 [facility] Activated partial thromboplastin time (aPTT) in platelet poor plasma bycoagulation assay 56.4 23.8 - 35.5 05/26/2019 [facility] Serum or plasma total bilirubin measurement (mass/volume) 0.4 0.2 - 1.2 05/26/2019 [facility] Aspartate Amino Transf (AST/SGOT) 13 5 - 34 05/26/2019 [facility] Serum or plasma alanine aminotransferase measurement (enzymatic activity/volume) 10 0 - 55 05/26/2019 [facility] Serum or plasma protein measurement (mass/volume) 6.5 6.5 - 8.1 05/26/2019 [facility] Serum or plasma albumin measurement (mass/volume) 3.3 3.5 - 5.0 05/26/2019 [facility] Plasma globulin measurement (mass/volume) 3.2 2.3 - 3.5 05/26/2019 [facility] Serum or plasma albumin/globulin mass ratio 1.0 0.8 - 2.0 05/26/2019 [facility] Serum or plasma alkaline phosphatase measurement (enzymatic activity/volume) 109 40 - 150 05/26/2019 [facility] Serum or plasma creatine kinase measurement (enzymatic activity/volume) 89 30 - 200 05/26/2019 [facility] Serum or plasma creatine kinase MB measurement (mass/volume) 2.80 0 - 5.0 05/26/2019 [facility] Troponin I measurement by highly sensitive enzyme immunoassay 0.013 0 - 0.300 05/26/2019 [facility] Serum or plasma lipase measurement (enzymatic activity/volume) 19 8 - 78 05/26/2019 [facility] URINE AND STOOL POC UA Bld Trace *NA* (05/18/19 12:35 PM) Negative 05/18/2019 [facility] URINE AND STOOL POC UA Bili Negative *NA* (05/18/19 12:35 PM) Negative 05/18/2019 [facility] URINE AND STOOL POC UA Ket Negative mg/dL Negative mg/dL 05/18/2019 [facility] URINE AND STOOL POC UA Uro 0.2 0.1 - 1.0 05/18/2019 [facility] URINE AND STOOL POC UA Nit Positive *ABN* (05/18/19 12:35 PM) Negative 05/18/2019 [facility] URINE AND STOOL POC UA LeukEst Small *ABN* (05/18/19 12:35 PM) Negative 05/18/2019 [facility] URINE AND STOOL POC UA Color Yellow *NA* (05/18/19 12:35 PM) Yellow 05/18/2019 [facility] URINE AND STOOL POC UA Turbidity Clear *NA* (05/18/19 12:35 PM) Clear 05/18/2019 [facility] URINE AND STOOL POC UA SG 1.015 <=1.030 05/18/2019 [facility] URINE AND STOOL POC UA Glu Negative mg/dL Negative mg/dL 05/18/2019 [facility] URINE AND STOOL POC UA pH 6.5 5.0 - 8.0 05/18/2019 [facility] URINE AND STOOL POC UA Prot Negative mg/dL Negative mg/dL 05/18/2019 [facility] Capillary blood glucose measurement by glucometer (mass/volume) 126 70 - 120 05/04/2019 [facility] Blood leukocytes automated count (number/volume) 10.03 4.8 - 10.8 05/04/2019 [facility] Blood erythrocytes automated count (number/volume) 5.79 4.3 - 5.7 05/04/2019 [facility] Blood hemoglobin measurement (moles/volume) 16.2 14.0 - 18.0 05/04/2019 [facility] Automated blood hematocrit (volume fraction) 51.0 38.2 - 49.6 05/04/2019 [facility] Automated erythrocyte mean corpuscular volume 88.1 81 - 99 05/04/2019 [facility] Automated erythrocyte mean corpuscular hemoglobin (mass per erythrocyte) 28.0 28 - 32 05/04/2019 [facility] Automated erythrocyte mean corpuscular hemoglobin concentration measurement (mass/volume) 31.8 31 - 35 05/04/2019 [facility] RDW BldCo-Rto 14.8 11.7 - 14.4 05/04/2019 [facility] Automated blood platelet count (count/volume) 292 140 - 360 05/04/2019 [facility] Automated blood segmented neutrophil count as percentage of total leukocytes 77.1 38.7 - 80.0 05/04/2019 [facility] Automated blood lymphocyte count as percentage ot total leukocytes 14.1 18.0 - 39.1 05/04/2019 [facility] Automated blood monocyte count as percentage of total leukocytes 8.2 4.4 - 11.3 05/04/2019 [facility] Automated blood eosinophil count as percentage of total leukocytes 0.0 0.0 - 6.0 05/04/2019 [facility] Automated blood basophil count as percentage of total leukocytes 0.1 0.0 - 1.0 05/04/2019 [facility] IM GRANULOCYTES % 0.5 0.0 - 1.0 05/04/2019 [facility] Automated blood neutrophil count 7.7 2.1 - 6.9 05/04/2019 [facility] Blood lymphocytes count (number/volume) 1.4 1.0 - 3.2 05/04/2019 [facility] Blood monocytes automated count (number/volume) 0.8 0.2 - 0.8 05/04/2019 [facility] Automated blood eosinophil count 0.0 0.0 - 0.4 05/04/2019 [facility] Automated blood basophil count (count/volume) 0.0 0.0 - 0.1 05/04/2019 [facility] Absolute Immature Granulocyte (auto 0.05 0 - 0.1 05/04/2019 [facility] Serum or plasma sodium measurement (moles/volume) 138 136 - 145 05/04/2019 [facility] Serum or plasma potassium measurement (moles/volume) 3.5 3.5 - 5.1 05/04/2019 [facility] Serum or plasma chloride measurement (moles/volume) 81 98 - 107 05/04/2019 [facility] Serum or plasma carbon dioxide, total measurement (moles/volume) 43 22 - 29 05/04/2019 [facility] Serum or plasma anion gap 17.5 8 - 16 05/04/2019 [facility] Serum or plasma urea nitrogen measurement (mass/volume) 95 7 - 26 05/04/2019 [facility] Serum or plasma creatinine measurement (mass/volume) 2.57 0.72 - 1.25 05/04/2019 [facility] Serum or plasma urea nitrogen/creatinine mass ratio 37 6 - 25 05/04/2019 [facility] Estimated glomerular filtration rate (GFR) determination 25 60 05/04/2019 [facility] Glucose measurement 120 74 - 118 05/04/2019 [facility] Serum or plasma calcium measurement (mass/volume) 10.2 8.4 - 10.2 05/04/2019 [facility] Serum or plasma magnesium measurement (mass/volume) 3.1 1.3 - 2.1 05/04/2019 [facility] BNP Bld-mCnc 175.1 0 - 100 05/04/2019 [facility] Serum or plasma uric acid measurement (mass/volume) 8.3 4.8 - 8.0 04/30/2019 [facility] Blood culture NO GROWTH AFTER 72 HOURS 04/30/2019 [facility] Serum or plasma uric acid measurement (mass/volume) 8.3 4.8 - 8.0 04/30/2019 [facility] Hemoglobin A1c Percent 5.6 4.0 - 7.0 04/25/2019 [facility] Hemoglobin A1c Percent 5.6 4.0 - 7.0 04/25/2019 [facility] Serum or plasma creatine kinase measurement (enzymatic activity/volume) 73 30 - 200 04/24/2019 [facility] Serum or plasma creatine kinase MB measurement (mass/volume) 2.50 0 - 5.0 04/24/2019 [facility] Troponin I measurement by highly sensitive enzyme immunoassay < 0.001 0 - 0.300 04/24/2019 [facility] Serum or plasma total bilirubin measurement (mass/volume) 0.5 0.2 - 1.2 04/24/2019 [facility] Aspartate Amino Transf (AST/SGOT) 16 5 - 34 04/24/2019 [facility] Serum or plasma alanine aminotransferase measurement (enzymatic activity/volume) 13 0 - 55 04/24/2019 [facility] Serum or plasma protein measurement (mass/volume) 6.3 6.5 - 8.1 04/24/2019 [facility] Serum or plasma albumin measurement (mass/volume) 3.4 3.5 - 5.0 04/24/2019 [facility] Plasma globulin measurement (mass/volume) 2.9 2.3 - 3.5 04/24/2019 [facility] Serum or plasma albumin/globulin mass ratio 1.2 0.8 - 2.0 04/24/2019 [facility] Serum or plasma alkaline phosphatase measurement (enzymatic activity/volume) 87 40 - 150 04/24/2019 [facility] Prothrombin time (PT) in platelet poor plasma by coagulation assay 13.7 11.9 - 14.5 04/23/2019 [facility] INR in Platelet poor plasma by Coagulation assay 1.00 04/23/2019 [facility] Activated partial thromboplastin time (aPTT) in platelet poor plasma bycoagulation assay 35.8 23.8 - 35.5 04/23/2019 [facility] Urine color determination YELLOW YELLOW 04/23/2019 [facility] Urine clarity CLEAR CLEAR 04/23/2019 [facility] Specific gravity of Urine by Test strip 1.010 1.010 - 1.025 04/23/2019 [facility] Urine pH measurement by automated test strip 6 5 - 7 04/23/2019 [facility] Urine leukocyte esterase detection by automated test strip NEGATIVE NEGATIVE 04/23/2019 [facility] Urine nitrite detection by automated test strip NEGATIVE NEGATIVE 04/23/2019 [facility] Urine protein detection by automated test strip NEGATIVE NEGATIVE 04/23/2019 [facility] Urine glucose detection by automated test strip NEGATIVE NEGATIVE 04/23/2019 [facility] Urine ketones detection by automated test strip NEGATIVE NEGATIVE 04/23/2019 [facility] Urine urobilinogen measurement by test strip (mass/volume) 0.2 0.2 - 1 04/23/2019 [facility] Urine total bilirubin detection NEGATIVE NEGATIVE 04/23/2019 [facility] Urine erythrocytes detection NEGATIVE NEGATIVE 04/23/2019 [facility] Automated urine sediment leukocyte count by microscopy (number/high power field) 6-10 0 - 5 04/23/2019 [facility] Erythrocytes detection in urine sediment by light microscopy NONE 0 - 5 04/23/2019 [facility] Bacteria detection in urine sediment by light microscopy MODERATE NONE 04/23/2019 [facility] Epithelial cells detection in urine sediment by light microscopy FEW NONE 04/23/2019 [facility] Hyaline casts detection in urine sediment by light microscopy 0-1 0 - 1 04/23/2019 [facility] Hyaline casts detection in urine sediment by light microscopy 0-1 0 - 1 04/23/2019 [facility] Capillary blood glucose measurement by glucometer (mass/volume) 126 70 - 120 02/15/2019 [facility] Blood leukocytes automated count (number/volume) 8.88 4.8 - 10.8 02/15/2019 [facility] Blood erythrocytes automated count (number/volume) 6.03 4.3 - 5.7 02/15/2019 [facility] Blood hemoglobin measurement (moles/volume) 16.4 14.0 - 18.0 02/15/2019 [facility] Automated blood hematocrit (volume fraction) 54.5 38.2 - 49.6 02/15/2019 [facility] Automated erythrocyte mean corpuscular volume 90.4 81 - 99 02/15/2019 [facility] Automated erythrocyte mean corpuscular hemoglobin (mass per erythrocyte) 27.2 28 - 32 02/15/2019 [facility] Automated erythrocyte mean corpuscular hemoglobin concentration measurement (mass/volume) 30.1 31 - 35 02/15/2019 [facility] RDW BldCo-Rto 16.2 11.7 - 14.4 02/15/2019 [facility] Automated blood platelet count (count/volume) 293 140 - 360 02/15/2019 [facility] Automated blood segmented neutrophil count as percentage of total leukocytes 65.2 38.7 - 80.0 02/15/2019 [facility] Automated blood lymphocyte count as percentage ot total leukocytes 19.8 18.0 - 39.1 02/15/2019 [facility] Automated blood monocyte count as percentage of total leukocytes 11.4 4.4 - 11.3 02/15/2019 [facility] Automated blood eosinophil count as percentage of total leukocytes 2.1 0.0 - 6.0 02/15/2019 [facility] Automated blood basophil count as percentage of total leukocytes 1.0 0.0 - 1.0 02/15/2019 [facility] IM GRANULOCYTES % 0.5 0.0 - 1.0 02/15/2019 [facility] Automated blood neutrophil count 5.8 2.1 - 6.9 02/15/2019 [facility] Blood lymphocytes count (number/volume) 1.8 1.0 - 3.2 02/15/2019 [facility] Blood monocytes automated count (number/volume) 1.0 0.2 - 0.8 02/15/2019 [facility] Automated blood eosinophil count 0.2 0.0 - 0.4 02/15/2019 [facility] Automated blood basophil count (count/volume) 0.1 0.0 - 0.1 02/15/2019 [facility] Absolute Immature Granulocyte (auto 0.04 0 - 0.1 02/15/2019 [facility] Prothrombin time (PT) in platelet poor plasma by coagulation assay 13.4 11.9 - 14.5 02/15/2019 [facility] INR in Platelet poor plasma by Coagulation assay 0.97 02/15/2019 [facility] Activated partial thromboplastin time (aPTT) in platelet poor plasma bycoagulation assay 38.9 23.8 - 35.5 02/15/2019 [facility] Serum or plasma sodium measurement (moles/volume) 139 136 - 145 02/15/2019 [facility] Serum or plasma potassium measurement (moles/volume) 4.7 3.5 - 5.1 02/15/2019 [facility] Serum or plasma chloride measurement (moles/volume) 84 98 - 107 02/15/2019 [facility] Serum or plasma carbon dioxide, total measurement (moles/volume) 42 22 - 29 02/15/2019 [facility] Serum or plasma anion gap 17.7 8 - 16 02/15/2019 [facility] Serum or plasma urea nitrogen measurement (mass/volume) 68 7 - 26 02/15/2019 [facility] Serum or plasma creatinine measurement (mass/volume) 2.16 0.72 - 1.25 02/15/2019 [facility] Serum or plasma urea nitrogen/creatinine mass ratio 31 6 - 25 02/15/2019 [facility] Estimated glomerular filtration rate (GFR) determination 30 60 02/15/2019 [facility] Glucose measurement 140 74 - 118 02/15/2019 [facility] Serum or plasma calcium measurement (mass/volume) 10.4 8.4 - 10.2 02/15/2019 [facility] Serum or plasma magnesium measurement (mass/volume) 3.3 1.3 - 2.1 02/15/2019 [facility] BNP Bld-mCnc 91.6 0 - 100 02/15/2019 [facility] Hemoglobin A1c Percent 6.2 4.0 - 7.0 02/12/2019 [facility] Phosphorus measurement 3.5 2.3 - 4.7 02/12/2019 [facility] Serum or plasma thyroxine (T4) free measurement (mass/volume) 0.92 0.9 - 1.8 02/12/2019 [facility] Serum or plasma thyrotropin measurement by detection limit <=0.005 miu/l (units/volume) 1.875 0.350 - 4.940 02/12/2019 [facility] Serum or plasma thyroxine (T4) free measurement (mass/volume) 0.92 0.9 - 1.8 02/12/2019 [facility] Serum or plasma thyrotropin measurement by detection limit <=0.005 miu/l (units/volume) 1.875 0.350 - 4.940 02/12/2019 [facility] Serum or plasma thyrotropin measurement by detection limit <=0.005 miu/l (units/volume) 1.875 0.350 - 4.940 02/12/2019 [facility] Phosphorus measurement 3.5 2.3 - 4.7 02/12/2019 [facility] Serum or plasma creatine kinase measurement (enzymatic activity/volume) 127 30 - 200 02/11/2019 [facility] Serum or plasma creatine kinase MB measurement (mass/volume) 2.50 0 - 5.0 02/11/2019 [facility] Troponin I measurement by highly sensitive enzyme immunoassay 0.017 0 - 0.300 02/11/2019 [facility] Serum or plasma total bilirubin measurement (mass/volume) 0.6 0.2 - 1.2 02/09/2019 [facility] Aspartate Amino Transf (AST/SGOT) 15 5 - 34 02/09/2019 [facility] Serum or plasma alanine aminotransferase measurement (enzymatic activity/volume) 10 0 - 55 02/09/2019 [facility] Serum or plasma protein measurement (mass/volume) 6.7 6.5 - 8.1 02/09/2019 [facility] Serum or plasma albumin measurement (mass/volume) 3.4 3.5 - 5.0 02/09/2019 [facility] Plasma globulin measurement (mass/volume) 3.3 2.3 - 3.5 02/09/2019 [facility] Serum or plasma albumin/globulin mass ratio 1.0 0.8 - 2.0 02/09/2019 [facility] Serum or plasma alkaline phosphatase measurement (enzymatic activity/volume) 78 40 - 150 02/09/2019 [facility] Urine color determination YELLOW YELLOW 02/08/2019 [facility] Urine clarity CLEAR CLEAR 02/08/2019 [facility] Specific gravity of Urine by Test strip 1.010 1.010 - 1.025 02/08/2019 [facility] Urine pH measurement by automated test strip 7 5 - 7 02/08/2019 [facility] Urine leukocyte esterase detection by dipstick NEGATIVE NEGATIVE 02/08/2019 [facility] Urine nitrite detection NEGATIVE NEGATIVE 02/08/2019 [facility] Urine protein measurement by test strip (mass/volume) NEGATIVE NEGATIVE 02/08/2019 [facility] Urine glucose detection NEGATIVE NEGATIVE 02/08/2019 [facility] Urine ketones detection by automated test strip NEGATIVE NEGATIVE 02/08/2019 [facility] Urine urobilinogen measurement by test strip (mass/volume) 0.2 0.2 - 1 02/08/2019 [facility] Urine total bilirubin measurement (mass/volume) NEGATIVE NEGATIVE 02/08/2019 [facility] Urine erythrocytes detection NEGATIVE NEGATIVE 02/08/2019 [facility] Automated urine sediment leukocyte count by microscopy (number/high power field) NONE 0 - 5 02/08/2019 [facility] Erythrocytes detection in urine sediment by light microscopy NONE 0 - 5 02/08/2019 [facility] Bacteria detection in urine sediment by light microscopy NONE NONE 02/08/2019 [facility] Epithelial cells detection in urine sediment by light microscopy RARE NONE 02/08/2019 [facility] Capillary blood glucose measurement by glucometer (mass/volume) 151 70 - 120 01/09/2019 [facility] Blood leukocytes automated count (number/volume) 8.53 4.8 - 10.8 01/09/2019 [facility] Blood erythrocytes automated count (number/volume) 6.08 4.3 - 5.7 01/09/2019 [facility] Blood hemoglobin measurement (moles/volume) 16.4 14.0 - 18.0 01/09/2019 [facility] Automated blood hematocrit (volume fraction) 54.7 38.2 - 49.6 01/09/2019 [facility] Automated erythrocyte mean corpuscular volume 90.0 81 - 99 01/09/2019 [facility] Automated erythrocyte mean corpuscular hemoglobin (mass per erythrocyte) 27.0 28 - 32 01/09/2019 [facility] Automated erythrocyte mean corpuscular hemoglobin concentration measurement (mass/volume) 30.0 31 - 35 01/09/2019 [facility] RDW BldCo-Rto 17.9 11.7 - 14.4 01/09/2019 [facility] Automated blood platelet count (count/volume) 220 140 - 360 01/09/2019 [facility] Automated blood segmented neutrophil count as percentage of total leukocytes 87.2 38.7 - 80.0 01/09/2019 [facility] Automated blood lymphocyte count as percentage ot total leukocytes 7.0 18.0 - 39.1 01/09/2019 [facility] Automated blood monocyte count as percentage of total leukocytes 4.6 4.4 - 11.3 01/09/2019 [facility] Automated blood eosinophil count as percentage of total leukocytes 0.0 0.0 - 6.0 01/09/2019 [facility] Automated blood basophil count as percentage of total leukocytes 0.1 0.0 - 1.0 01/09/2019 [facility] IM GRANULOCYTES % 1.1 0.0 - 1.0 01/09/2019 [facility] Automated blood neutrophil count 7.4 2.1 - 6.9 01/09/2019 [facility] Blood lymphocytes count (number/volume) 0.6 1.0 - 3.2 01/09/2019 [facility] Blood monocytes automated count (number/volume) 0.4 0.2 - 0.8 01/09/2019 [facility] Automated blood eosinophil count 0.0 0.0 - 0.4 01/09/2019 [facility] Automated blood basophil count (count/volume) 0.0 0.0 - 0.1 01/09/2019 [facility] Absolute Immature Granulocyte (auto 0.09 0 - 0.1 01/09/2019 [facility] Serum or plasma sodium measurement (moles/volume) 140 136 - 145 01/09/2019 [facility] Serum or plasma potassium measurement (moles/volume) 4.4 3.5 - 5.1 01/09/2019 [facility] Serum or plasma chloride measurement (moles/volume) 91 98 - 107 01/09/2019 [facility] Serum or plasma carbon dioxide, total measurement (moles/volume) 40 22 - 29 01/09/2019 [facility] Serum or plasma anion gap 13.4 8 - 16 01/09/2019 [facility] Serum or plasma urea nitrogen measurement (mass/volume) 33 7 - 26 01/09/2019 [facility] Serum or plasma creatinine measurement (mass/volume) 1.41 0.72 - 1.25 01/09/2019 [facility] Serum or plasma urea nitrogen/creatinine mass ratio 23 6 - 25 01/09/2019 [facility] Estimated glomerular filtration rate (GFR) determination 49 60 01/09/2019 [facility] Glucose measurement 154 74 - 118 01/09/2019 [facility] Serum or plasma calcium measurement (mass/volume) 8.8 8.4 - 10.2 01/09/2019 [facility] Serum or plasma magnesium measurement (mass/volume) 2.5 1.3 - 2.1 01/09/2019 [facility] BNP Bld-mCnc 381.1 0 - 100 01/09/2019 [facility] Differential Total Cells Counted 100 01/08/2019 [facility] Manual blood neutrophils/100 leukocytes 91 40 - 74 01/08/2019 [facility] Manual blood lymphocytes/100 leukocytes 6 19 - 48 01/08/2019 [facility] Manual blood monocytes/100 leukocytes 3 3.4 - 9.0 01/08/2019 [facility] Blood platelets count by estimate (number/volume) ADEQUATE 01/08/2019 [facility] Platelet morphology NORMAL 01/08/2019 [facility] RBC morphology NORMAL 01/08/2019 [facility] Differential Total Cells Counted 100 01/08/2019 [facility] Manual blood neutrophils/100 leukocytes 91 40 - 74 01/08/2019 [facility] Manual blood lymphocytes/100 leukocytes 6 19 - 48 01/08/2019 [facility] Manual blood monocytes/100 leukocytes 3 3.4 - 9.0 01/08/2019 [facility] Blood platelets count by estimate (number/volume) ADEQUATE 01/08/2019 [facility] Platelet morphology NORMAL 01/08/2019 [facility] RBC morphology NORMAL 01/08/2019 [facility] Urine color determination STRAW YELLOW 01/07/2019 [facility] Urine clarity CLEAR CLEAR 01/07/2019 [facility] Specific gravity of Urine by Test strip 1.010 1.010 - 1.025 01/07/2019 [facility] Urine pH measurement by automated test strip 6 5 - 7 01/07/2019 [facility] Urine leukocyte esterase detection by dipstick NEGATIVE NEGATIVE 01/07/2019 [facility] Urine nitrite detection NEGATIVE NEGATIVE 01/07/2019 [facility] Urine protein measurement by test strip (mass/volume) NEGATIVE NEGATIVE 01/07/2019 [facility] Urine glucose detection NEGATIVE NEGATIVE 01/07/2019 [facility] Urine ketones detection by automated test strip NEGATIVE NEGATIVE 01/07/2019 [facility] Urine urobilinogen measurement by test strip (mass/volume) 0.2 0.2 - 1 01/07/2019 [facility] Urine total bilirubin measurement (mass/volume) NEGATIVE NEGATIVE 01/07/2019 [facility] Urine erythrocytes detection NEGATIVE NEGATIVE 01/07/2019 [facility] Automated urine sediment leukocyte count by microscopy (number/high power field) 0-5 0 - 5 01/07/2019 [facility] Erythrocytes detection in urine sediment by light microscopy NONE 0 - 5 01/07/2019 [facility] Bacteria detection in urine sediment by light microscopy NONE NONE 01/07/2019 [facility] Epithelial cells detection in urine sediment by light microscopy MODERATE NONE 01/07/2019 [facility] Transitional cells detection in urine sediment by light microscopy RARE NONE 01/07/2019 [facility] Hyaline casts detection in urine sediment by light microscopy >15 0 - 1 01/07/2019 [facility] Transitional cells detection in urine sediment by light microscopy RARE NONE 01/07/2019 [facility] Hyaline casts detection in urine sediment by light microscopy >15 0 - 1 01/07/2019 [facility] Serum or plasma creatine kinase measurement (enzymatic activity/volume) 66 30 - 200 01/06/2019 [facility] Serum or plasma creatine kinase MB measurement (mass/volume) 2.50 0 - 5.0 01/06/2019 [facility] Troponin I measurement by highly sensitive enzyme immunoassay 0.005 0 - 0.300 01/06/2019 [facility] Hemoglobin A1c Percent 6.2 4.0 - 7.0 01/06/2019 [facility] Serum or plasma thyroxine (T4) free measurement (mass/volume) 0.76 0.9 - 1.8 01/06/2019 [facility] Serum or plasma thyrotropin measurement by detection limit <=0.005 miu/l (units/volume) 0.739 0.350 - 4.940 01/06/2019 [facility] Procalcitonin (PCT) level 0.07 0.00 - 0.08 01/06/2019 [facility] Procalcitonin (PCT) level 0.07 0.00 - 0.08 01/06/2019 [facility] Procalcitonin (PCT) level 0.07 0.00 - 0.08 01/06/2019 [facility] Procalcitonin (PCT) level 0.07 0.00 - 0.08 01/06/2019 [facility] Arterial blood pH measurement 7.35 7.31 - 7.41 01/05/2019 [facility] pCO2 BldA 66 41 - 51 01/05/2019 [facility] pCO2 BldA 98 80 - 105 01/05/2019 [facility] Arterial blood bicarbonate measurement (moles/volume) 36 23 - 28 01/05/2019 [facility] Arterial blood base excess by calculation 10.0 -2 - 3 - 2 01/05/2019 [facility] Arterial blood oxygen saturation measurement 97.0 95 - 98 01/05/2019 [facility] FiO2 35 01/05/2019 [facility] pCO2 BldA 98 80 - 105 01/05/2019 [facility] Arterial blood bicarbonate measurement (moles/volume) 36 23 - 28 01/05/2019 [facility] Arterial blood base excess by calculation 10.0 -2 - 3 - 2 01/05/2019 [facility] Arterial blood oxygen saturation measurement 97.0 95 - 98 01/05/2019 [facility] FiO2 35 01/05/2019 [facility] FiO2 35 01/05/2019 [facility] FiO2 35 01/05/2019 [facility] pCO2 BldA 66 41 - 51 01/05/2019 [facility] Arterial blood pH measurement 7.35 7.31 - 7.41 01/05/2019 [facility] Prothrombin time (PT) in platelet poor plasma by coagulation assay 16.2 11.9 - 14.5 01/05/2019 [facility] INR in Platelet poor plasma by Coagulation assay 1.24 01/05/2019 [facility] Activated partial thromboplastin time (aPTT) in platelet poor plasma bycoagulation assay 38.8 23.8 - 35.5 01/05/2019 [facility] Lactic Acid Level 13.5 4.5 - 19.8 01/05/2019 [facility] Serum or plasma total bilirubin measurement (mass/volume) 0.6 0.2 - 1.2 01/05/2019 [facility] Aspartate Amino Transf (AST/SGOT) 17 5 - 34 01/05/2019 [facility] Serum or plasma alanine aminotransferase measurement (enzymatic activity/volume) 14 0 - 55 01/05/2019 [facility] Serum or plasma protein measurement (mass/volume) 6.6 6.5 - 8.1 01/05/2019 [facility] Serum or plasma albumin measurement (mass/volume) 3.5 3.5 - 5.0 01/05/2019 [facility] Plasma globulin measurement (mass/volume) 3.1 2.3 - 3.5 01/05/2019 [facility] Serum or plasma albumin/globulin mass ratio 1.1 0.8 - 2.0 01/05/2019 [facility] Serum or plasma alkaline phosphatase measurement (enzymatic activity/volume) 106 40 - 150 01/05/2019 [facility] Blood culture NO GROWTH AFTER 5 DAYS, FINAL REPORT 01/05/2019 [facility] Lactic Acid Level 13.5 4.5 - 19.8 01/05/2019 [facility] Lactic Acid Level 13.5 4.5 - 19.8 01/05/2019 [facility] Urine creatinine measurement (mass/volume) 48.99 63 - 166 12/12/2018 [facility] Random urine protein/creatinine ratio 0.41 12/12/2018 [facility] Random urine protein/creatinine ratio 0.41 12/12/2018 [facility] Urine protein measurement (mass/volume) 20.3 1 - 14 12/12/2018 [facility] Blood hypochromia detection by light microscopy SLIGHT 09/15/2018 [facility] Blood ovalocytes detection by light microscopy FEW 09/15/2018 [facility] Blood ovalocytes detection by light microscopy FEW 09/15/2018 [facility] Giant platelet detection FEW 09/15/2018 [facility] Phosphorus measurement 2.9 2.3 - 4.7 08/04/2018 [facility] Urine potassium measurement (moles/volume) 24.1 08/01/2018 [facility] CHEM PANEL eGFR 55 06/24/2016 [...] should be multiplied by the estimated BMI. [facility] CHEM PANEL POC Creatinine 1.3 0.5 - 1.4 06/24/2016 [facility] CHEM PANEL eGFR 55 04/10/2016 Result [...] should be multiplied by the estimated BMI. 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 Total exam BPA=2996 mGy-cm. Impression: 1. Unremarkable barium swallow esophagram [...] bilateral neural foraminal narrowing at L4-L5. SL: [id number] 12/04/2017 [facility] Spine cervical wo contrast MRI Study: [...] foraminal narrowing, left greater than right. SL: [id number] 12/04/2017 [facility] pelvis and [...] nerve sheath tumor, or epidermoid cyst. SL: [id number] 06/24/2016 [facility] Spine lumbar w/wo contrast MRI Patient Name: STEVE BENEDICT : 1945; Age: 70 years y/o Male MR: [id number] Study: Spine lumbar w/wo contrast MRI 06/24/2016 [...] compatible with acute on chronic denervation. SL: [id number] 06/24/2016 [facility] Spine thoracic wo contrast CT CT THORACIC [...] 2. No acute abnormalities are visualized. SL:06/19/2016 [facility] lumbar wo contrast CT CT THORACIC [...] 2. No acute abnormalities are visualized. SL:06/19/2016 [facility] cervical 2 or 3 view DX [...] 2. No acute fracture or malalignment. 04/23/2016 [facility] Thoracic w/wo contrast MRI MRI THORACIC SPINE [...] and multiple bilateral renal cysts. SL:16 04/10/2016 [facility] Spine lumbar w/wo contrast MRI EXAM: [...] smoking and anemia among other etiologies. SL: [id number] 03/28/2016 [facility] Consultation Notes No Data Provided for This Section Discharge Summaries No Data Provided for This Section History and Physicals No Data Provided for This Section Vital Signs Vital Sign Value Date Comments Source Height 175.26 cm 06/02/2019 [facility] Weight 106.08 06/02/2019 [facility] BMI Calculated 34.54 06/02/2019 [facility] BMI Calculated 34.5 04/19/2019 [facility] Height 175.26 cm 04/19/2019 [facility] Weight 105.966 04/19/2019 [facility] Encounters Location Location Details Encounter Type Encounter Number Reason For Visit Attending Provider ADM Date DC Date Status Source [facility] [place] [facility] [id number] Monique Reed 03/06/2016 03/07/2016 [facility] Outpatient [id number] Christopher Summers 03/28/2016 03/29/2016 [facility] Out[facility] [place] [facility] [id number] Angel Martínez 04/02/2016 04/03/2016 [facility] Outpatient [id number] Elida Valenzuela 04/10/2016 04/11/2016 [facility] Outpatient [facility] [place] [facility] Di[facility] [id number] Monique Reed 04/23/2016 04/24/2016 [facility] Outpatient [id number] FADI DANIEL 06/06/2016 [facility] Outpatient [id number] Fadi Daniel Jr 06/19/2016 06/20/2016 [facility] Outpatient [id number] Fadi Daniel Jr 06/24/2016 06/25/2016 [facility] Outpatient [id number] FADI DANILE 07/11/2016 [facility] Outpatient Imaging - [place] [facility] Di[facility] [id number] Mila Jones 04/23/2017 04/24/2017 [facility] [place] [facility] Outpatient [id number] Oleksandr Whitt 12/05/2017 12/05/2017 [facility] Discharged Inpatient [id number] HAILEE HERNANDEZ MD 08/02/2018 08/05/2018 [facility] Discharged Inpatient [id number] ROSALIE MEDINA MD 09/13/2018 09/16/2018 [facility] Phone Message [id number] 11/04/2018 11/06/2018 [facility] Discharged Inpatient (obs) [id number] HAILEE HERNANDEZ MD 11/06/2018 11/07/2018 [facility] Outpatient [id number] CARLA REYNAGA 11/30/2018 Active [facility] Registered [facility] [id number] HAILEE HERNANDEZ MD 12/08/2018 [facility] Discharged Inpatient [id number] ALINA PULIDO MD 12/13/2018 12/15/2018 [facility] Outpatient [id number] URODYNAMICS 12/16/2018 Active [facility] Outpatient [id number] CARLA REYNAGA 12/22/2018 Active [facility] [place] [facility] Di[facility] [id number] Mila Jones 12/28/2018 12/29/2018 [facility] [place] Discharged Inpatient (obs) [id number] HAILEE HERNANDEZ MD 12/30/2018 12/31/2018 [facility] Discharged Inpatient [id number] ROSALIE MEDINA MD 01/05/2019 01/09/2019 [facility] Outpatient [id number] Carla Reynaga 02/02/2019 Active [facility] Discharged Inpatient [id number] ROSALIE MEDINA MD 02/08/2019 02/15/2019 [facility] Outpatient [id number] Carla Reynaga 04/19/2019 Active [facility] [place] Outpatient [id number] Carla Reynaga 04/19/2019 04/20/2019 [facility] Outpatient [id number] NURSE VISIT 04/21/[address] [facility] Ambulatory Pre-Reg [id number] Christopher Summers 04/21/2019 04/21/2019 [facility] Discharged Inpatient [id number] ROSALIE MEDINA MD 04/23/2019 05/04/2019 [facility] Outpatient [id number] Carla Reynaga 05/04/2019 Active [facility] Urology [facility] Ambulatory Pre-Reg [id number] Christopher Summers 05/04/2019 05/04/2019 Medical Group [facility] Urology [facility] Ambulatory Pre-Reg [id number] Carla Reynaga 05/04/2019 05/04/2019 [facility] Outpatient [id number] -URODYNAMICS, 05/18/2019 Active [facility] Outpatient [id number] Christopher Summers 05/18/2019 05/19/2019 Medical Group [facility] Ambulatory Pre-Reg [id number] Carla Reynaga 05/25/2019 05/25/2019 [facility] Discharged Inpatient (obs) [id number] ROSALIE MEDINA MD 05/26/2019 05/28/2019 [facility] Outpatient [id number] MED_ASST VISIT 05/27/2019 Active [facility]rology [facility] Outpatient [id number] Christopher Summers 05/27/2019 05/28/2019 [facility] Outpatient [id number] -URODYNAMICS, 06/01/2019 Active [facility] Urology [facility] Outpatient [id number] Christopher Summers 06/01/2019 06/02/2019 [facility] Outpatient [id number] Carla Reynaga 06/02/2019 Active [facility] Outpatient [id number] Carla Reynaga 06/02/2019 06/03/2019 [facility] Outpatient [id number] -URODYNAMICS, 06/08/2019 [facility] Outpatient [id number] Carla Reynaga 06/14/2019 [facility] Procedures Procedure Code Date Perfomer Comments Source Complex cystometrogram (ie, calibrated electronic equipment); with voiding pressure studies (ie, bladder voiding pressure), any technique [id number] 06/02/2019 [facility] Voiding pressure studies, intra-abdominal (ie, rectal, gastric, intraperitoneal) (List separately in addition to code for primary procedure) 69691 06/02/2019 [facility] Complex uroflowmetry (eg, calibrated electronic equipment) 22863 06/02/2019 [facility] Electromyography studies (EMG) of anal or urethral sphincter, other than needle, any technique 53978 06/02/2019 [facility] Computed tomography of brain without radiopaque contrast [id number] 05/27/2019 [facility] Magnetic resonance imaging of brain without contrast [id number] 05/27/2019 [facility] MRI non-joint region of extremity upper wo contrast [id number] 04/29/2019 [facility] X-ray of chest, single view [id number] 02/08/[address] [facility] US abdomen complete [id number] 01/06/2019 [facility] Computed tomography of chest with contrast [id number] 01/05/2019 [facility] INS PICC RS&I 5 YR+ 72000 12/30/2018 [facility] PRQ CARD STENT W/ANGIO 1 VSL 25993 11/06/2018 [facility] CORONARY ARTERY ANGIO S&I 06742 11/06/2018 [facility] Cystoscopy [id number] 08/25/2018 Nasir Hammer [facility] [place] X-ray of chest, two views [id number] 07/31/2018 [facility] Ultrasound, renal [id number] 07/31/2018 [facility] Complex uroflowmetry [id number] 03/30/2018 Nasir Hammer [facility] [place] Catheter replacement [id number] [facility], [place] Fusion<sup>1</sup> [id number] cervical fusion done on 09/11/[address] Nilo Adames [facility] [place] Prostate manipulation [id number] [facility], [facility] [place] Stent replacement [id number] [facility] Assessment and Plan No Data Provided for This Section Plan of Care Plan of Care Date Source Discharge Date 05/28/19 12:59pm Disposition HOME, SELF-CARE Instructions/Education Provided Syncope Prescriptions See Medication Section Additional Instructions/Education f/u with PCP in 1-2 weeks 05/28/2019 [facility] Discharge Date 05/04/19 10:54am Disposition HOME, SELF-CARE Instructions/Education Provided COPD Congestive Heart Failure Prescriptions See Medication Section Additional Instructions/Education f/u with PCP in 1-2 weeks 05/04/2019 [facility] Discharge Date 02/15/19 2:47pm Disposition HOME, SELF-CARE Instructions/Education Provided Atrial Fibrillation Cellulitis Prescriptions See Medication Section Additional Instructions/Education F/U WITH PCP IN 1-2 WEEKS F/U WITH DR HERNANDEZ IN 1-2 WEEKS F/U WITH DR AMEZCUA IN 1-2 WEEKS F/U WITH DR RESENDEZ IN 1-2 WEEKS CONTINUE WITH THICKENED LIQUIDS 02/15/2019 [facility] Discharge Date 01/09/19 1:42pm Disposition HOME, SELF-CARE Instructions/Education Provided Cirrhosis COPD Prescriptions See Medication Section Referrals HAILEE HERNANDEZ MD (Cardiology) Order Date: 7-10 Days Entered Date: 01/09/2019 12:33pm [facility] [address] [facility] [address] [place] [address] JOHNSON AMEZCUA MD (Internal Medicine) Order Date: 1-2 Weeks Entered Date: 01/09/2019 12:33pm Address: [address] [place] [address] [address] [place] [address] Additional Instructions/Education FOLLOW UP WITH PCP IN 1-2 WEEKS FOLLOW UP WITH NEPHROLOGY IN 1-2 WEEKS FOLLOW UP WITH DR BLACK IN 1-2 WEEKS FOLLOW UP WITH CARDIOLOGY (DR. HERNANDEZ) NEXT WEEK CALL EACH OFFICE TO SCHEDULE AN APPOINTMENT 01/09/2019 [facility] Social History Social History Date Source Social History TypeResponse Smoking Status Former smoker; Ready to change: No; Concerns about tobacco use in household: No; Exposure to Tobacco Smoke None; Cigarette Smoking Last 365 Days No; Reg Smoking Cessation Counseling No; Other Tobacco Frequency QUIT SMOKING 2011; 1 entered on: 06/02/19 1Quit smoking 2012 06/02/2019 [facility] Social History Problem Response Recorded Date/Time Onset Date Status Hx Psychiatric Problems No 06/04/2017 3:20pm Not Applicable Not Applicable Hx Substance Use Disorder No 12/30/2018 10:43am Not Applicable Not Applicable Hx Alcohol Use No 12/30/2018 10:43am Not Applicable Not Applicable 05/28/2019 [facility] Social History TypeResponse Smoking Status [...] Cessation Counseling No entered on: 07/11/16 07/11/2016 [facility] Social History TypeResponse 04/24/2016 [facility] [place] Family History No Data Provided for This Section Advance Directives Order Name Results Value Date Source Advance Directives Advance Directives Directive Response Recorded Date/Time Does the patient have an advance directive? Yes 05/26/19 11:13pm If yes, is advance directive on file with [facility]? No 05/26/19 11:13pm If not on file with [facility] will patient provide a copy? No 05/26/19 11:13pm Do you have a Directive to Physician? Yes 05/26/19 2:30pm Do you have a Medical Power of Payroll Auditor? Yes 05/26/19 2:30pm Do you have an out of hospital Do Not Resuscitate Order? Yes 05/26/19 2:30pm Do you have any special needs we should be aware of? Yes 05/26/19 2:30pm Do you have a support person here with you today? Yes 05/26/19 2:30pm Did patient receive Notice of Privacy Practices? Yes 05/26/19 2:30pm Did patient receive patient rights and responsibilities? Yes 05/26/19 2:30pm 05/28/2019 [facility] Advance Directives Advance Directives Directive Response Recorded Date/Time Does the patient have an advance directive? Yes 04/23/19 9:55pm If yes, is advance directive on file with [facility]? No 04/23/19 9:55pm If not on file with [facility] will patient provide a copy? Yes 04/23/19 9:55pm Do you have a Directive to Physician? Yes 04/23/19 6:20pm Do you have a Medical Power of Payroll Auditor? Yes 04/23/19 6:20pm Do you have an [...] rights and responsibilities? Yes 04/23/19 6:20pm 05/04/2019 [facility] Advance Directives Advance Directives Directive Response Recorded Date/Time Does the patient have an advance directive? No 02/09/19 2:20am If yes, is advance directive on file with [facility]? No 02/09/19 2:20am If not on file with [facility] will patient provide a copy? No 02/09/19 2:20am Do you have a Directive to Physician? No 02/08/19 3:53pm Do you have a Medical Power of Payroll Auditor? No 02/08/19 3:53pm Do you have an [...] rights and responsibilities? Yes 02/08/19 3:54pm 02/15/2019 [facility] Advance Directives Advance Directives Directive Response Recorded Date/Time Does the patient have an advance directive? No 01/06/19 12:00am If yes, is advance directive on file with [facility]? No 01/06/19 12:00am If not on file with [facility] will patient provide a copy? No 01/06/19 12:00am Do you have a Directive to Physician? Yes 01/05/19 2:05pm Do you have a Medical Power of Payroll Auditor? Yes 01/05/19 2:05pm Do you have an [...] rights and responsibilities? Yes 01/05/19 2:05pm 01/09/2019 [facility] Functional Status No Data Provided for This Section
--- OUTSIDE RECORDS SUMMARY | 2019-06-11 14:57 | XMS REPORT | Summary of Care ---
Author Author [facility] U[facility] Organization [facility] Address Unknown Phone Unavailable Encounter JOSSELIN White(FIN) [id number] Date(s): 06/02/19 - 06/02/19 [facility] [address] [address]- [phone] Discharge Disposition: Home or Self Care Attending Physician: Kelechi Sibley MD Referring Physician: Christopher Summers MD Vital Signs Most recent to 1 oldest [Reference Range]: Height 175.26 cm (06/02/19 10:55 AM) Weight 106.08 kg (06/02/19 10:55 AM) Body Mass Index 34.54 m2 (06/02/19 10:55 AM) Problem List Condition Effective Dates Status [...] Reactions, Alerts No Known Medication Allergies Medications Myrbetriq 50 mg oral tablet, extended release 50 mg=1 tab, PO, Daily, # 90 tab, 1 Refill(s), Pharmacy: [id number] Start Date: 06/02/19 Stop Date: 11/29/19 Status: Ordered Results No data available for this section Immunizations No data available for this section Procedures Procedure Date Related Diagnosis Body Site Status Complex cystometrogram (ie, calibrated 06/02/19 Completed electronic equipment); with voiding pressure studies (ie, bladder voiding pressure), any technique Complex uroflowmetry (eg, calibrated 06/02/19 Completed electronic equipment) Electromyography studies (EMG) of anal or 06/02/19 Completed urethral sphincter, other than needle, any technique Voiding pressure studies, intra-abdominal 06/02/19 Completed (ie, rectal, gastric, intraperitoneal) (List separately in addition to code for primary procedure) Cystoscopy 08/25/18 Completed Complex uroflowmetry 03/30/18 Completed [...] 2011; 1 entered on: 06/02/19 1Quit smoking 2011 Assessment and Plan No data available for this section
--- OUTSIDE RECORDS SUMMARY | 2019-06-11 14:57 | XMS REPORT | Summary of Care ---
Author Author [facility] Urology [facility] Organization [facility] Address Unknown Phone Unavailable Encounter JOSSELIN White(FIN) [id number] Date(s): 05/25/19 - 05/25/19 [facility] [place] [address] [place] [address]- Attending Physician: Kelechi Sibley MD Referring Physician: [...]
--- OUTSIDE RECORDS SUMMARY | 2019-06-11 14:57 | XMS REPORT | Summary of Care ---
Author Author [facility] Urology [facility] Organization [facility] Address Unknown Phone Unavailable Encounter JOSSELIN White(FIN) [id number] Date(s): 05/27/19 - 05/27/19 [facility] [address] [address]- [phone] Discharge Disposition: Home or Self Care Attending [...]
--- OUTSIDE RECORDS SUMMARY | 2019-06-11 14:58 | XMS REPORT | Summary of Care ---
Author Author [facility] Organization [facility] Address Unknown Phone Unavailable Encounter JOSSELIN White(FIN) [id number] Date(s): 06/01/19 - 06/01/19 [facility] [address] [address]- [phone] Discharge Disposition: Home or Self Care Referring [...] 1 entered on: 06/02/19 1Quit smoking 2012 Assessment and Plan No data available for this section
[2019-06-11] MEDS ORDERED: SODIUM CHLORIDE 0.9% 1000ML 1,000 ML ONE (15:08)
[2019-06-11] MEDS ORDERED: SODIUM CHLORIDE 0.9% 1000ML 1,000 ML IV ONE (15:20)
[2019-06-11 15:53] LABS: BASOPHILS % 0.5 % (0.0-1.0); EOSINOPHILS # (AUTO) 0.1 (0.0-0.4); EOSINOPHILS % 1.6 % (0.0-6.0); HEMATOCRIT 33.7 % (38.2-49.6); HEMOGLOBIN 10.4 g/dL (14.0-18.0); LYMPHOCYTES # (AUTO) 0.8 (1.0-3.2); LYMPHOCYTES % 10.1 % (18.0-39.1); MEAN CORPUSCULAR HEMOGLOBIN 26.3 pg (28-32); MEAN CORPUSCULAR HGB CONC 30.9 g/dL (31-35); MEAN CORPUSCULAR VOLUME 85.3 fL (81-99); MONOCYTES # (AUTO) 0.7 (0.2-0.8); NEUTROPHILS # (AUTO) 6.3 (2.1-6.9); NEUTROPHILS % 78.4 % (38.7-80.0); PLATELET COUNT 377 x10e3/uL (140-360); RED BLOOD COUNT 3.95 x10e6/uL (4.3-5.7); RED CELL DISTRIBUTION WIDTH 14.8 % (11.7-14.4)
--- NOTE | 2019-06-11 15:55 | Diagnostic Imaging Report ---
Chest, 1 view, 06/11/2019. History: Hypotension, weakness. Comparison: 05/26/2019. Findings: The cardiomediastinal silhouette and pulmonary vasculature are within normal limits for a portable exam. There is no focal consolidation or pleural effusion. Linear opacities are again seen in the left lung base. There are no acute osseous or soft tissue abnormalities. Impression: Left lower lobe atelectasis. Signed by: Jama Pettit on 06/11/2019 3:52 PM
[2019-06-11 16:09] LABS: INR 1.54; PROTHROMBIN TIME 19.1 seconds (11.9-14.5)
[2019-06-11 16:10] LABS: PARTIAL THROMBOPLASTIN TIME 49.1 seconds (23.8-35.5)
[2019-06-11 16:22] LABS: ALBUMIN 3.7 g/dL (3.5-5.0); ALBUMIN/GLOBULIN RATIO 1.1 (0.8-2.0); ANION GAP 16.2 mmol/L (8-16); CALCIUM 9.9 mg/dL (8.4-10.2); CREATININE, SERUM 2.92 mg/dL (0.72-1.25); MAGNESIUM 2.8 MG/DL (1.3-2.1); POTASSIUM 3.2 mmol/L (3.5-5.1)
[2019-06-11 16:33] LABS: CREATINE KINASE MB 4.9 ng/mL (0-5.0)
[2019-06-11] MEDS ORDERED: AZITHROMYCIN 500MG/NS 250 ML 250 ML IV ONE (17:49)
[2019-06-11] MEDS ORDERED: ASPIRIN 81 MG CHEW TAB PO ONE (18:00)
--- OUTSIDE RECORDS SUMMARY | 2019-06-11 18:57 | XMS REPORT | Clinical Summary ---
Author Author Juan Pablo Religion Organization [employer] Address Unknown Phone Unavailable Care Team Providers Care Material Loader Name Role Phone Asked, No Pcp PCP [...] skin tears; Jerking movements of extremities 05/05/2019 [facility] General Internal Medicine - Encounter [...] MMODE SPECTRAL 11:00 AM CDT COLOR DOPPLER ([id number]) POC GLUCOSE Routine 05/07/2019 7:41 AM CDT [...] glucose 101 (H) 65 - 99 mg/dL [facility] Comment: SCIENTOLOGY [facility] Notified RN HOSPITAL Meter ID: [id number] Development Coach: Gage Moe Specimen Performing Organization Address City/State/Zipcode Phone Number [facility] DEPARTMENT OF [address] [place] [address] PATHOLOGY AND GENOMIC MEDICINE [facility] [address] [place] [address] HOSPITAL * MRI Lumbar Spine Wo Contrast [...] L5-S1. Additional degenerative changes are detailed above. [id number] Procedure Note Hm Interface, Radiology Results 05/08/2019 [...] L5-S1. Additional degenerative changes are detailed above. [id number] Performing Organization Address City/State/Zipcode Phone Number [facility] [address] [place] [address] * MRI Thoracic Spine Wo Contrast (05/08/2019 [...] is associated cord flattening without cord hyperintensity. [facility]-[id number] Procedure Note Hm Interface, Radiology Results Incoming [...] is associated cord flattening without cord hyperintensity. [facility]-[id number] Performing Organization Address City/State/Zipcode Phone Number [facility] [address] [place] [address] * Estimated GFR (05/08/2019 6:17 AM CDT) Only the most recent of 6 results within the time period is included. Estimated GFR 52 (A) mL/min/1.73 m2 [facility] Comment: SCIENTOLOGY [facility] rpretation G1 >=90 Normal or high G2 60-89Mildly decreased K6a52-89 Mildly to moderately decreased A6d69-87 Moderately to severely decreased G4 15-29Severely decreased G5 <15Kidney failure The eGFR was calculated using the Chronic Kidney Disease Epidemiology Collaboration (CKD-EPI) equation. Interpretation is based on recommendations of the National Kidney Foundation-Kidney Disease Outcomes Quality Initiative (NKF-KDOQI) published in 2014. Specimen Plasma specimen Performing Organization Address City/State/Zipcode Phone Number [facility] DEPARTMENT OF [address] [place] [address] PATHOLOGY AND GENOMIC MEDICINE [address] * Partial thromboplastin time, activated (05/08/2019 6:17 AM CDT) Only the most recent of 3 results within the time period is included. PTT 33.1 23.0 - 36.0 sec [facility] Comment: SCIENTOLOGY PTT therapeutic range for HOSPITAL unfractionated heparin is 61.0-112.0 seconds which corresponds to Anti-Xa 0.3-0.7 U/ml. Specimen Blood Performing Organization Address City/[facility]/Zipcode Phone Number [facility] DEPARTMENT OF [address] [place] [address] PATHOLOGY AND [facility] MEDICINE [address] * Prothrombin time with INR (05/08/2019 6:17 AM CDT) Only the most recent of 3 results within the time period is included. Pathologist [facility] Prothrombin 17.5 (H) 11.5 - 14.5 sec [facility] INR 1.5 [facility] Comment: SCIENTOLOGY The International Normalized HOSPITAL Ratio (INR) is a therapeutic monitoring tool for patients who are stable on oral anticoagulant therapy. An INR of 2.0-3.0 is suggested for deep vein thrombosis/pulmonary embolism. Specimen Blood Performing Organization Address City/[facility]/Rustcode Phone Number [facility] DEPARTMENT OF [address] [place] [address] PATHOLOGY AND GENOMIC MEDICINE [address] * CBC with platelet and differential (05/08/2019 6:17 AM CDT) Only the most recent of 4 results within the time period is included. WBC 7.75 4.50 - 11.00 k/uL [facility] RBC 3.85 (L) 4.40 - 6.00 m/uL [facility] HGB 10.9 (L) 14.0 - 18.0 g/dL [facility] HCT 36.2 (L) 41.0 - 51.0 % [facility] MCV 94.0 82.0 - 100.0 fL [facility] MCH 28.3 27.0 - 34.0 pg [facility] MCHC 30.1 (L) 31.0 - 37.0 g/dL [facility] RDW - SD 52.2 37.0 - 55.0 fL [facility] MPV 10.8 8.8 - 13.2 fL [facility] Platelet count 202 150 - 400 k/uL [facility] Nucleated RBC 0.00 /100 WBC [facility] Neutrophils 72.8 (H) 39.0 - 69.0 % [facility] Lymphocytes 14.3 (L) 25.0 - 45.0 % [facility] Monocytes 8.5 0.0 - 10.0 % [facility] Eosinophils 3.5 0.0 - 5.0 % [facility] Basophils 0.3 0.0 - 1.0 % [facility] Immature 0.6Comment: "Immature 0.0 - 1.0 % [facility] granulocytes granulocytes" (promyelocytes, SCIENTOLOGY myelocytes, metamyelocytes) HOSPITAL Specimen Blood Performing Organization Address [facility] Phone Number [facility] [place] [address] PATHOLOGY AND [facility] MEDICINE [address] * Phosphorus level (05/08/2019 6:17 AM CDT) Only the most recent of 5 results within the time period is included. Phosphorus 2.3 (L) 2.4 - 4.5 mg/dL [facility] Specimen Plasma specimen Performing Organization Address [facility] Phone Number [facility] [place] [address] PATHOLOGY AND GENOMIC MEDICINE [address] * Magnesium level (05/08/2019 6:17 AM CDT) Only the most recent of 4 results within the time period is included. Magnesium 2.0 1.6 - 2.4 mg/dL [facility] Specimen Plasma specimen Performing Organization Address [facility] Phone Number [facility] [place] [address] PATHOLOGY AND GENOMIC MEDICINE [address] * Venous blood gas (05/08/2019 6:17 AM CDT) Only the most recent of 4 results within the time period is included. pH, venous 7.42 7.32 - 7.42 [facility] pCO2, venous 59 (H) 45 - 51 mmHg [facility] pO2, venous 105 (H) 25 - 40 mmHg [facility] Base excess, 11 (H) -2 - 2 meq/L [facility] O2 saturation, 98 (H) 40 - 70 % [facility] Bicarbonate, 37.1 (H) 21.0 - 28.0 mmol/L [facility] Specimen Blood Performing Organization Address City/[facility]/[place] Phone Number [facility] [place] [address] PATHOLOGY AND GENOMIC MEDICINE [address] * Ionized calcium (05/08/2019 6:17 AM CDT) Only the most recent of 3 results within the time period is included. pH 7.54 [facility] Ionized calcium 1.07 (L) 1.11 - 1.32 mmol/L [facility] Specimen Plasma specimen Performing Organization Address [facility] Phone Number [facility] [place] [address] PATHOLOGY AND GENOMIC MEDICINE [address] * Basic metabolic panel (05/08/2019 6:17 AM CDT) Only the most recent of 4 results within the time period is included. Sodium 139 135 - 148 mEq/L [facility] Potassium 3.2 (L) 3.5 - 5.0 mEq/L [facility] Chloride 94 (L) 98 - 112 mEq/L [facility] CO2 36 (H) 24 - 31 mEq/L [facility] Anion gap 9@ANIO 7 - 15 mEq/L [facility] BUN 24 (H) 8 - 23 mg/dL [facility] Creatinine 1.33 (H) 0.70 - 1.20 mg/dL [facility] Glucose 114 (H) 65 - 99 mg/dL [facility] Calcium 8.9 8.8 - 10.2 mg/dL [facility] Specimen Plasma specimen Performing Organization Address City/[facility]/[place] Phone Number [facility] [place] [address] PATHOLOGY AND GENOMIC MEDICINE [facility] [address] * Potassium level (05/07/2019 2:35 PM CDT) Potassium 3.9 3.5 - 5.0 mEq/L [facility] Specimen Plasma specimen Performing Organization Address [facility]/[employer] Phone Number [facility] DEPARTMENT OF [address] [place] [address] PATHOLOGY AND GENOMIC MEDICINE [address] * XR Pelvis 3+ Vw (05/07/2019 [...] Surgical clips projecting over the pubic symphysis. [facility]-[id number] Procedure Note Interface, Radiology Results Incoming - [...] Surgical clips projecting over the pubic symphysis. [facility]-[id number] Performing Organization Address [facility]/[place] Phone Number [facility] [address] [place] [address] * Echocardiogram complete w contrast and 3D if needed (05/07/2019 11:00 AM CDT) Specimen Narrative Performed At [facility] Echocardiography Report [address] [facility] 9, [address]Name:STEVE BENEDICT.ID:[id number] .Date: 05/07/2019 Refer.MD:RASHEEDA AHMADI MD Exam Time: 10:57:00 AM Study Type:Routine Echo Height:69inWeight:194lb BSA: 2.04 m2 DOBAge:1945,73Y Sex: MALEBP:130/61 Sonogrphr: Marilee Nicholson, [facility], RVSPat. Stat.:Inpatient Room:[address] Status:Final Echo Event ID:[id number] Order ID:[id number] Reason for Study:Syncope without cardiac evidence Procedures:2D [...] RAPof 5 mmHg. MEASUREMENTS: 2D Parasternal Long Felch LVOT 2.2 cmLA Ds5 cm LVIDd5.1 cmIndex2.5 cm/m Ao An2.1 cm LVIDs2.7 cmAo Rtd 3.6 cm Index1.7 cm/m LV%fs 47.1 % LV Pctw163.2 g(122-174) IVSd 1.1 cmLVM Stetp059.2 g/m2 LVPWd1.3 cmRWT0.5 LA Sng Plane LA Area 33.6 cm2(8.8-23.4) LA Vol 132.1 ml Index64.8 ml/m LA LngAx 7.1 cm DOPPLER LVOT Stroke Vol LVOT 2.2 cmLVOT CO6 l/min LVOT TVI15.9 cmLVOT CI2.9 l/m/m2 LVOT Tm242 rdinVV82 bpm LVOT SV 60.6 ml Signed 05/07/2019 07:08 PM Ross Hodge M.D. Procedure Note Interface, Radiology Results In - 05/07/2019 7:08 PM CDT Echocardiography Report [address] [place] [address] Pat.Name: STEVE BENEDICT Pat.ID: [id number] .Date: 05/07/2019 Refer.MD: RASHEEDA AHMADI MD Exam Time: 10:57:00 AM Study Type:Routine Echo Height: 69in Weight: 194lb BSA: 2.04 m2 Age: 10 1945,73Y Sex: MALE BP: 130/61 Sonogrphr: Marilee Nicholson RDCS, RVSPat. Stat.:Inpatient Room: [place] [address] Study Status:Final Echo Event ID:[id number] Order ID: [id number] Reason for Study:Syncope without cardiac evidence Procedures:2D [...] of 5 mmHg. MEASUREMENTS: 2D Parasternal Long Felch LVOT 2.2 cm LA Ds 5 cm [...] PM Ross Hodge M.D. Performing Organization Address City/[facility]/Zipcode Phone Number [facility] [address] [place] [address] * Thyroid stimulating hormone (05/07/2019 4:15 AM CDT) TSH 2.16 0.27 - 4.20 uIU/mL [facility] Specimen Plasma specimen Performing Organization Address [facility]/[place] Phone Number [facility] DEPARTMENT OF [address] [place] [address] PATHOLOGY AND GENOMIC MEDICINE [address] * T4, free (05/07/2019 4:15 AM CDT) T4, free 1.2 0.9 - 1.7 ng/dL [facility] Specimen Plasma specimen Performing Organization Address [facility] Phone Number [facility] DEPARTMENT OF [address] [place] [address] PATHOLOGY AND GENOMIC MEDICINE [address] * US Renal (05/06/2019 1:55 PM CDT) Specimen Narrative Performed At EXAMINATION:US RENAL [facility] CLINICAL HISTORY:Renal failureacute (kidney injury) COMPARISON:None. FINDINGS: The right kidney ydpqsjhk19.7 x 4.5 x 4.4 cm, parenchymal thickness 1.5 cm The left kidney tumaxchr50.5 x 4.6 x 4.5 cm, parenchymal thickness 1.5 cm There is a 6 mm equivocal right renal cyst. The left kidney contains 2 simple appearing cyst measuring 4 cm and 2.8 cm. There is no hydronephrosis. The urinary bladder is decompressed by Macedo catheter. IMPRESSION: Benign left renal cyst. Questionable right renal cyst. No hydronephrosis. [facility]-[id number] Procedure Note Interface, Radiology Results Incoming - [...] cyst. Questionable right renal cyst. No hydronephrosis. [facility]-[id number] Performing Organization Address City/State/Zipcode Phone Number [facility] [address] [place] [address] * Comprehensive metabolic panel (05/06/2019 5:00 AM CDT) Only the most recent of 2 results within the time period is included. Sodium 142 135 - 148 mEq/L [facility] Potassium SEE COMMENT 3.5 - 5.0 mEq/L [facility] Comment: SCIENTOLOGY Footnote--------- HOSPITAL SPECIMEN HEMOLYZED.RECOLLECT REQUESTED FOR K+ AND AST. Chloride 95 (L) 98 - 112 mEq/L [facility] CO2 38 (H) 24 - 31 mEq/L [facility] Anion gap 9@ANIO 7 - 15 mEq/L [facility] BUN 87 (H) 8 - 23 mg/dL [facility] Creatinine 1.82 (H) 0.70 - 1.20 mg/dL [facility] Glucose 135 (H) 65 - 99 mg/dL [facility] Calcium 8.6 (L) 8.8 - 10.2 mg/dL [facility] Protein 5.9 (L) 6.3 - 8.3 g/dL [facility] Comment: [facility] 4.6-7.0 g/dL 1 week 4.4-7.6 g/dL 7 months-1year 5.1-7.3 g/dL 1-2 years5.6-7 .5 g/dL >3 years6.0-8 .0 g/dL 18-150 6.3-8.3 g/dL Albumin 3.1 (L) 3.5 - 5.0 g/dL [facility] A/G ratio 1.1 0.7 - 3.8 [facility] Alkaline 67 40 - 129 U/L [facility] phosphatase [facility] AST SEE COMMENTComment: 10 - 50 U/L [facility] Footnote--------- [facility] ALT 20 5 - 50 U/L [facility] Total bilirubin 0.5 0.0 - 1.2 mg/dL [facility] Specimen Plasma specimen Performing Organization Address City/[facility]/Zipcode Phone Number [facility] [place] [address] PATHOLOGY AND GENOMIC MEDICINE [address] * Blood culture, aerobic & anaerobic (05/05/2019 9:20 PM CDT) Only the most recent of 2 results within the time period is included. Blood culture No growth after 5 days of [facility] isolate incubation. SCIENTOLOGY Comment: HOSPITAL Specimen Information Specimen Source: Blood Specimen Site: Forearm, left Specimen Blood - Forearm, left Performing Organization Address City/[facility]/[place] Phone Number [facility] [place] [address] PATHOLOGY AND [facility] MEDICINE [address] * Lactic acid level (05/05/2019 9:05 PM CDT) Lactic acid 1.4 0.5 - 2.2 mmol/L [facility] Specimen Blood Performing Organization Address City/[facility]/[place] Phone Number [facility] [place] [address] PATHOLOGY AND GENOMIC MEDICINE [address] * Ammonia level (05/05/2019 9:05 PM CDT) Ammonia 20 16 - 60 umol/L [facility] Specimen Blood Performing Organization Address City/[facility]/[place] Phone Number [facility] [place] [address] PATHOLOGY AND GENOMIC MEDICINE [address] * CT Chest Wo Contrast Abdomen [...] 3.Chronic and incidental findings as detailed above. [facility]-[id number] Procedure Note Hm Interface, Radiology Results Incoming [...] Chronic and incidental findings as detailed above. [facility]-[id number] Performing Organization Address City/[facility]/Zipcode Phone Number [facility] [address] [place] [phone] * Urinalysis screen and microscopy, with reflex to culture (05/05/2019 7:22 PM CDT) Specimen site Clean catch [facility] Color, UA Straw [facility] Appearance, UA Clear [facility] Specific 1.013 1.001 - 1.035 [facility] gravity, [facility] pH, UA 6.0 5.0 - 8.5 [facility] Protein, UA Negative Negative [facility] Glucose, UA Negative Negative [facility] Ketones, UA Negative Negative [facility] Bilirubin, UA Negative Negative [facility] Blood, UA Negative Negative [facility] Nitrite, UA Negative Negative [facility] Urobilinogen, <2.0 <2.0 [facility] Leukocyte Negative Negative [facility] esterase, [facility] Epithelial <1 /HPF [facility] cells, [facility] WBC, UA None seen 0 - 1 /HPF [facility] RBC, UA <1 0 - 5 /HPF [facility] Bacteria, UA None seen None seen [facility] Yeast, UA None seen [facility] Yeast with None seen [facility] Hyaline casts, 12 /LPF [facility] Specimen Urine Performing Organization Address City/State/Zipcode Phone Number [facility] DEPARTMENT [facility] [place] [address] PATHOLOGY AND GENOMIC MEDICINE [address] * Hemoglobin & hematocrit (05/05/2019 7:22 PM CDT) HGB 13.5 (L) 14.0 - 18.0 g/dL [facility] HCT 43.2 41.0 - 51.0 % [facility] Specimen Blood Performing Organization Address City/State/Zipcode Phone Number [facility] DEPARTMENT OF [address] [place] [address] PATHOLOGY [place] [address] HOSPITAL * Urine drugs of abuse screen (05/05/2019 7:22 PM CDT) Pathologist [facility] Amphetamine Negative [facility] screen, urine [facility] Barbiturate Negative [facility] screen, urine [facility] Benzodiazepine Negative [facility] screen, urine [facility] Cocaine screen, Negative [facility] urine [facility] Methadone Negative [facility] metabolite SCIENTOLOGY (EDDP), urine [facility] Opiates screen, Positive (A) [facility] urine [facility] Oxycodone Negative [facility] screen, urine [facility] Phencyclidine Negative [facility] screen, urine [facility] Tricyclic Negative [facility] screen, urine [facility] Cannabinoid Negative [facility] screen, urine Comment: SCIENTOLOGY Drug screen minimum HOSPITAL concentration of detectability [...] is required. Specimen Urine Performing Organization Address [facility]/[place] Phone Number [facility] [place] [address] PATHOLOGY AND GENOMIC MEDICINE [address] * Urine culture (05/05/2019 7:22 PM CDT) [facility] Urine culture SEE COMMENTComment: [facility] Bacteriuria screen negative. [facility] Specimen Performing Organization Address City/[facility]/Zipcode Phone Number [facility] [place] [address] PATHOLOGY AND GENOMIC MEDICINE [address] * XR Chest 1 Vw Portable [...] There is hardware in the cervical spine. [facility]-[id number] Procedure Note Interface, Radiology Results Incoming - 05/05/2019 7:09 PM CDT EXAMINATION: XR CHEST 1 VW PORTABLE CLINICAL HISTORY: SOB COMPARISON: None IMPRESSION: Heart size and pulmonary vasculature are normal. There is linear atelectasis in the left lower lung zone. No focal infiltrate, effusion or pneumothorax seen. There are spondylotic changes in the spine. There is hardware in the cervical spine. [facility]-[id number] Performing Organization Address City/State/Zipcode Phone Number [facility] [address] [place] [address] * CT Head Wo Contrast (05/05/2019 6:21 [...] No CT evidence of acute intracranial abnormality. [id number] Procedure Note Interface, Radiology Results Incoming - [...] No CT evidence of acute intracranial abnormality. [id number] Performing Organization Address City/[facility]/Zipcode Phone Number [facility] [address] [place] [phone] * Type and screen (05/05/2019 3:33 PM CDT) ABO grouping O [facility] Rh type POS [facility] Antibody screen NEG [facility] (gel) [facility] Specimen Blood Performing Organization Address City/[facility]/Zipcode Phone Number [facility] DEPARTMENT OF [address] [place] [address] PATHOLOGY AND GENOMIC MEDICINE [address] * ECG 12 lead (05/05/2019 3:25 PM CDT) Ventricular 88 [facility] rate Atrial rate 340 [facility] QRSD interval 104 [facility] QT interval 368 [facility] QTC interval [address] [facility] MUSE QRS axis 1 -23 [facility] MUSE T wave axis 39 [facility] EKG impression Atrial fibrillation-Abnormal [facility] MUSE ECG-- Specimen Narrative Performed At Performing Organization Address [facility]/[place] Phone Number [facility] MUSE [address] [place] [phone] * ECG ED Preliminary Interpretation - Not an Order (05/05/2019 3:19 PM CDT) Narrative Performed At Eunice Reyes MD 05/05/20199:37 PM ECG ED Preliminary Interpretation - Not an Order Performed by: Eunice Reyes MD Authorized by: Eunice Reyes MD ECG reviewed by ED Physician in the absence of a hand kiss setter: yes Interpretation: Interpretation: abnormal Rate: ECG rate:88 [...] nerve damage and pneumothorax Alternatives discussed:Alternative treatment [place] protocol: Procedure explained and questions answered to [...] MEDICARE HUMANA xxxxxxxxx 2019-P MEDICARE resent PPO/PFFS/E [facility] Advance Directives Patient has advance care planning documents on file. For more information, marcella howell contact: Juan Pablo Colbert [address] [place] [address]
--- OUTSIDE RECORDS SUMMARY | 2019-06-11 18:59 | XMS REPORT | Continuity of Care Document ---
Author Author [employer] Organization [employer] 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 11/20/2017 [facility] M54.9 DORSALGIA, UNSPECIFIED G95.9 DISE Active 06/12/2016 [facility] 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, UNSPECIFIE Active 04/04/2016 [facility] DX: M54.4=LUMBAGO WITH SCIATICA, UNSPECI Active 03/26/2016 [facility] R53.1 - WEAKNESS Active 03/18/2016 [facility] [place] Spinal stenosis, lumbar region without neurogenic claudication 03/12/2018 [facility] Spinal stenosis, cervical region 03/12/2018 [facility] Spinal stenosis, cervicothoracic region 03/12/2018 [facility]ib [facility] [place] [place] Arthritis Resolved Problem 05/30/2019 [facility], [facility] [place],[facility] Arthropathy Resolved Problem 05/30/2019 [facility], [facility] [place] Atrial fibrillation and flutter Resolved Problem 05/30/2019 [facility], [facility] [place] Backache Resolved Problem 05/30/2019 [facility], [facility] [place] Benign prostatic hyperplasia with lower urinary tract symptoms Resolved Problem 05/30/2019 [facility], [facility] [place] Bronchitis Resolved Problem 05/30/2019 [facility], [facility] [place] Cataract Resolved Problem 05/30/2019 [facility], [facility] [place] Chronic kidney disease (Confirmed) Resolved Problem 05/30/2019 [facility], [facility] [place] COPD Resolved Problem 05/30/2019 [facility], [facility] [place],[facility] Diabetes mellitus type 1 Resolved Problem 05/30/2019 [facility], [facility] [place] Diabetes Resolved Problem 05/30/2019 [facility], [facility] [place],[facility] Glaucoma Resolved Problem 05/30/2019 [facility], [facility] [place] Gout Resolved Problem 05/30/2019 [facility], [facility] [place] Hypertension Resolved Problem 05/30/2019 [facility], [facility] [place],[facility] Impotence, organic Resolved Problem 05/30/2019 [facility], [facility] [place] Urinary frequency Resolved Problem 05/30/2019 [facility], [facility] [place] Mumps Resolved Problem 05/30/2019 [facility], [facility] [place] Neuropathy Resolved Problem 05/30/2019 [facility], [facility] [place] Nocturia Resolved Problem 05/30/2019 [facility], [facility] [place] Obesity Active Problem 05/30/2019 [facility], [facility] [place] Peripheral vascular disease Resolved Problem 05/30/2019 [facility], [facility] [place] Seborrheic dermatitis Resolved Problem 05/30/2019 [facility], [facility] [place] Sleep apnea Resolved Problem 05/30/2019 [facility], [facility] [place] Urgency of urination Resolved Problem 05/30/2019 [facility], [facility] [place] Other specified urinary incontinence Resolved Problem 05/30/2019 [facility], [facility] [place] UTI (Confirmed) Resolved Problem 05/30/2019 [facility], [facility] [place] Vertigo Resolved Problem 05/30/2019 [facility], [facility] [place] Atrial fibrillation (disorder) Resolved Problem 06/05/2019 [facility] [...] [facility] Mumps (disorder) Resolved Problem 06/05/2019 [facility] Neuropathy (disorder) Resolved Problem 06/05/2019 [facility] Nocturia (finding) Resolved Problem 06/05/2019 [facility] Obesity (disorder) Active Problem 06/05/2019 [facility] Peripheral vascular disease (disorder) Resolved Problem 06/05/2019 [facility] Seborrheic dermatitis (disorder) Resolved Problem 06/05/2019 [facility] Sleep apnea (finding) Resolved Problem 06/05/2019 [facility] Urgent desire to urinate (finding) Resolved Problem 06/05/2019 [facility] Urinary incontinence (finding) Resolved Problem 06/05/2019 [facility] Urinary tract infectious disease (disorder) Resolved Problem 06/05/2019 [facility] Vertigo (finding) Resolved Problem 06/05/2019 [facility] CHF Active Problem 05/04/2019 [facility] COPD exacerbation Active Problem 05/04/2019 [facility] Chronic renal insufficiency Active Problem 05/04/2019 [facility] Cirrhosis Active Problem 05/04/2019 [facility] Hemoptysis Active Problem 05/28/2019 [facility] Pedal edema Active Problem 05/04/2019 [facility] Pneumonia Active Problem 05/28/2019 [facility] Cellulitis of both lower extremities Active Problem 05/28/2019 [facility] Hypokalemia Active Problem 05/28/2019 [facility] Atrial fibrillation Active Problem 05/28/2019 [facility] Congestive heart failure Active Problem 05/28/2019 [facility] Chronic obstructive pulmonary disease Active Problem 05/28/2019 [facility] Obstructive chronic bronchitis with exacerbation Active Problem 05/28/2019 [facility] Chronic renal impairment Active Problem 05/28/2019 [facility] Hepatic cirrhosis Active Problem 05/28/2019 [facility] Pre-syncope Active Problem 05/28/2019 [facility] Edema of foot Active Problem 05/28/2019 [facility] DORSALGIA, UNSPECIFIED Active [facility] DISEASE OF SPINAL CORD, UNSPECIFIED Active [facility] Medications Medication Details Route Status Patient Instructions Ordering Provider Order Date Source 24 HR mirabegron 50 MG Extended Release Tablet [Myrbetriq] 50 mg=1 tab, PO, Daily, # 90 tab, 1 Refill(s), Pharmacy: [facility] #[id number] Active 06/02/2019 [facility] Midodrine Hcl 2.5 Mg Tablet Tid@08,12,16 Active [place] 05/28/2019 [facility] Baclofen 10 Mg Tablet, 10 Mg Oral Three Times A Day Active 05/28/2019 [facility] Levofloxacin 500 MG Oral Tablet [Levaquin] 500 mg=1 tab, PO, Q24H, X 7 day, # 7 tab, 0 Refill(s), Pharmacy: [facility] [id number] Active 05/18/2019 [facility] Bumetanide 1 Mg Tablet Twice A Day Active [place] 05/04/2019 [facility] Lidocaine Patch 1 Ea Patch Q24h Active [place] 05/04/2019 [facility] Metolazone 5 Mg Tablet Daily Active [place] 05/04/2019 [facility] Tamsulosin Hcl (Flomax*) 0.4 Mg Cap Bedtime Active [place] 05/04/2019 [facility] Bumetanide 2 Mg Tablet, 2 Mg Oral Twice A Day Active 05/04/2019 [facility] Carisoprodol (Soma) 350 Mg Tablet, 350 Mg Oral Daily as needed for Pain Active 04/23/2019 [facility] Cholecalciferol (Vitamin D3) (Vitamin D3) 2,000 Unit Capsule, 6000 Units Oral Bedtime Active 04/23/2019 [facility] Cosentyx , 150 Mg Active 04/23/2019 [facility] Folic Acid 1 Mg Tablet, 400 Mcg Oral Twice A Day Active 04/23/2019 [facility] Guaifenesin (Mucus Relief) 400 Mg Tablet, 400 Mg Oral Twice A Day Active 04/23/2019 [facility] Hydromorphone Hcl 2 Mg Tablet, 8 Mg Oral As Needed as needed for Prn Active 04/23/2019 [facility] Metolazone 5 Mg Tablet, 5 Mg Oral Active 04/23/2019 [facility] Pantoprazole Sodium (Protonix) 40 Mg Tablet.dr, 40 Mg Oral Bedtime Active 04/23/2019 [facility] Sodium Chloride For Inhalation (Hyper-Lamine) 4 Ml Vial.neb, 7 % Inhalation Daily as needed for Nasal Congestion Active 04/23/2019 [facility] Spironolact/Hydrochlorothiazid (Aldactazide 50-50 Tablet) 1 Each Tablet, 1 Tab Oral Daily Active 04/23/2019 [facility] Vitamin B12 , 17414 Mcg Oral Use As Directed Active 04/23/2019 [facility] allopurinol 300 mg oral tablet 300 mg=1 tab, PO, Daily, # 90 tab, 1 Refill(s) Active 04/19/2019 [facility] methenamine hippurate 1 gm, PO, Daily, 0 Refill(s) Active 04/19/2019 [facility] Dulcolax Laxative =1 supp, [place], Daily, PRN constipation, # 5 supp, 0 Refill(s) Active 04/19/2019 [facility] Colchicine 0.6 mg, PO, Daily, 0 Refill(s) Active 04/19/2019 [facility] Sucralfate (Carafate) 1 Gm Tablet Before Meals Active [place] 02/15/2019 [facility] Clindamycin Hcl 300 Mg Capsule, 300 Mg Oral Three Times A Day Active 02/15/2019 [facility] Bumex Twice A Day Active [place] 01/09/2019 [facility] Potassium Chloride (K-Dur) 20 Meq Tab.er.prt, 20 Meq Oral Every 12 Hours Active 01/09/2019 [facility] Prednisone 10 Mg Tab, 30 Mg Oral Daily Active 12/30/2018 [facility] Prednisone 20 Mg Tab, 20 Mg Oral Daily Active 12/30/2018 [facility] Prednisone 10 Mg Tab, 10 Mg Oral Daily Active 12/30/2018 [facility] Albuterol Sulfate (Proair Hfa Inhaler*) 8.5 Gm Inh, 3 Inh Active 12/11/2018 [facility] Alclometasone Dipropionate 15 Gm Cream..g., 1 Applic Topically Daily Active 12/11/2018 [facility] Albuterol Sulfate (Proair Hfa Inhaler*) 8.5 Gm Inh, 2 Inh Inhalation Daily Active 12/07/2018 [facility] Clobetasol Propionate 1 Ea/15 Gm Cr, 1 Applic Topically Daily Active 12/07/2018 [facility] Mirabegron (Myrbetriq) 50 Mg Tab.er.24h, 50 Mg Oral Every Morning Active 12/07/2018 [facility] Rapatha Injection , 140 Mg Intramusc Use As Directed Active 12/07/2018 [facility] Spironolactone (Aldactone) 50 Mg Tablet, 50 Mg Oral As Needed Active 12/07/2018 [facility] Fosfomycin 33.3 MG/ML Oral Suspension [Monurol] =1 Pack, PO, ONCE, # 3 gm, 0 Refill(s), Pharmacy: [facility] [id number] Active 12/03/2018 [facility] 24 HR mirabegron 50 MG Extended Release Tablet [Myrbetriq] See Instructions, TAKE 1 TABLET BY MOUTH EVERY DAY, # 90 tab, 0 Refill(s), Pharmacy: [facility] [id number], please have patient call for appt prior to next refill Active 11/05/2018 [facility] Folic Acid 1 Mg Tablet, 1 Mg Oral Twice A Day Active 11/05/2018 [facility] Warfarin Sodium 3 Mg Tablet, 3 Mg Oral Daily Active 11/05/2018 [facility] Azithromycin (Zithromax) 500 Mg Tablet, 500 Mg Oral Daily Active [place] 09/16/2018 [facility] Sulfamethoxazole/Trimethoprim (Bactrim Ds Tablet) 1 Each Tablet, 1 Each Oral Twice A Day Active [place] 09/16/2018 [facility] Albuterol Sulf (Proventil 0.083% Neb) 3 Ml Nebu, 3 Ml Inhalation Every 12 Hours Active 09/13/2018 [facility] Albuterol Sulfate (Proair Hfa Inhaler*) 8.5 Gm Inh, 1 Inh Inhalation Three Times A Day Active 09/13/2018 [facility] Albuterol Sulfate (Proair Hfa Inhaler*) 8.5 Gm Inh, Active 09/13/2018 [facility] Cyanocobalamin (Vitamin B-12) (Vitamin B-12) 2,000 Mcg Tablet.er, 2000 Mcg Weekly Active 09/13/2018 [facility] Duloxetine Hcl (Cymbalta) 30 Mg Capsule.dr, 60 Mg Oral Bedtime Active 09/13/2018 [facility] Fe Fumarate/Vit C/B12-If/Fa (Ferocon Capsule) 1 Each Capsule, 1 Cap Oral Daily Active 09/13/2018 [facility] Formoterol Fumarate (Perforomist) 20 Mcg/2 Ml Vial.neb, 20 Mcg Inhalation Daily Active 09/13/2018 [facility] Liraglutide (Victoza 3-Asad) 0.6 Mg/0.1 Ml Pen.injctr, 1.8 Mg Injection Every Morning Active 09/13/2018 [facility] [place]alee-3/Dha/Epa/Fish Oil (Fish Oil [place]-3 Softgel) 1 Each Capsule.dr, 1 Tab Oral Twice A Day Active 09/13/2018 [facility] Repaglinide (Prandin) 1 Mg Tab, 0.5 Tab Oral As Needed Active 09/13/2018 [facility] Tamsulosin Hcl 0.4 Mg Cap.er.24h, 0.8 Mg Oral Every 12 Hours Active 09/13/2018 [facility] Testoterone , 1 Ml Active 09/13/2018 [facility] Metoprolol Tartrate (Lopressor) 25 Mg Tab Every 12 Hours Active [place] 06/11/2017 [facility] Azithromycin (Z-Asad) 250 Mg Tablet, 500 Mg Oral Daily Active [place] 06/11/2017 [facility] Docusate Sodium (Colace) 100 Mg Capsule, 100 Mg Oral Three Times A Day Active [place] 06/11/2017 [facility] Furosemide 40 Mg Tablet, 80 Mg Oral Bid@,18 Active [place] 06/11/2017 [facility] Metoprolol Tartrate 25 Mg Tablet, 12.5 Mg Oral Twice A Day Active 06/11/2017 [facility] Polyethylene Glycol 3350 (Miralax) 17 Gm Powd.pack, 17 Gm Oral Twice A Day Active [place] 06/11/2017 [facility] Prednisone 20 Mg Tab, 40 Mg Oral Daily Active [place] 06/11/2017 [facility] Warfarin Sodium (Coumadin) 5 Mg Tablet, 5 Mg Oral Daily At 1700 Active [place] 06/11/2017 [facility] Warfarin Sodium (Coumadin) 5 Mg Tablet, 3 Mg Oral Today At 5:00PM Active 06/11/2017 [facility] Furosemide (Lasix) 40 Mg Tablet, 2 Mg Oral Twice A Day Active 06/04/2017 [facility] Furosemide (Lasix) 40 Mg Tablet, 80 Mg Oral Twice A Day Active 06/04/2017 [facility] Ibuprofen 400 Mg Tablet, 600 Mg Oral Every 6 Hours as needed for Pain Active 06/04/2017 [facility] Mucas , 400 Mcg Oral Twice A Day Active 06/04/2017 [facility] Servent Disk , 50 Mcg Inhalation Twice A Day Active 06/04/2017 [facility] Warfarin Sodium (Coumadin) 5 Mg Tablet, 3 Mg Oral Today At 5:00PM Active 06/04/2017 [facility] Warfarin Sodium (Coumadin) 2 Mg Tablet, 2 Mg Oral Daily Active 06/04/2017 [facility] Warfarin Sodium (Coumadin) 2.5 Mg Tablet, 2.5 Mg Oral Daily Active 06/04/2017 [facility] Warfarin Sodium (Coumadin) 5 Mg Tablet, 5 Mg Oral Today At 5:00PM Active 06/04/2017 [facility] Aspirin 325 Mg Tablet, 81 Mg Oral Daily Active 05/07/2017 [facility] Bupivacaine Hcl (Marcaine) 2.5 Mg/1 Ml Vial, 1.143 Mg Daily Active 05/07/2017 [facility] Carisoprodol 350 Mg Tablet, 350 Mg Oral as needed Active 05/07/2017 [facility] Fenofibric Acid (Choline) (Trilipix) 135 Mg Capsule., 135 Mg Oral Daily Active 05/07/2017 [facility] Hydrocodone Bit/Acetaminophen (Hydrocodone-Apap 10-325 Mg Tab) 1 Each Tablet, 1 Each Oral as needed Active 05/07/2017 [facility] Hydrocodone Bit/Acetaminophen (Hydrocodon-Acetaminophn 10-325) 1 Each Tablet, 10 Mg Oral As Needed Active 05/07/2017 [facility] Latanoprost 2.5 Ml Drops, 2.5 Ml Ophthalmic Daily Active 05/07/2017 [facility] Linagliptin (Tradjenta) 5 Mg Tablet, 5 Mg Oral Daily Active 05/07/2017 [facility] Morphine Pump , 12.7 Mg Daily Active 05/07/2017 [facility] Multivitamin (Multivitamins) 1 Each Tab.chew, Oral Daily Active 05/07/2017 [facility] Omeprazole 40 Mg Capsule., 40 Mg Oral Daily Active 05/07/2017 [facility] Polyethylene Glycol 3350 (Clearlax) 17 Gm Powd.pack, As Needed Active 05/07/2017 [facility] Testosterone (Testopel) 75 Mg Pellet.ea., 75 Mg Active 05/07/2017 [facility] Torsemide 20 Mg Tablet, 20 Mg Oral Twice A Day Active 05/07/2017 [facility] Zolpidem Tartrate (Ambien) 10 Mg Tablet, 10 Mg Oral Bedtime Active 05/07/2017 [facility] Axiron , 30 Mg Daily Active 09/01/2013 [facility] Caltrate +D , Oral Twice A Day Active 09/01/2013 [facility] Furosemide 40 Mg Tablet, 40 Mg Oral Daily Active 09/01/2013 [facility] Marcaine , Daily Active 09/01/2013 [facility] Morphine Pump , Daily Active 09/01/2013 [facility] Zolpidem Tartrate (Ambien Cr) 12.5 Mg Tab.mphase, 12.5 Mg Oral Daily Active 09/01/2013 [facility] Aclometasone 0.05% 1 Each Daily Active [facility] Albuterol Sulfate 0.63 Mg/3 Ml Vial.neb Twice A Day Active [facility] Albuterol Sulfate (Proair Hfa Inhaler*) 8.5 Gm Inh Daily Active PATIENT TAKES 3-5 PUFFS INHALATION [facility] Alprazolam 0.5 Mg Tab.rapdis As Needed Active [facility] Aspirin (Aspir 81) 81 Mg Tablet.dr Daily Active [facility] Baclofen 10 Mg Tablet Three Times A Day Active [facility] Budesonide 0.5 Mg/2 Ml Ampul.neb Twice A Day Active [facility] Carisoprodol (Soma) 350 Mg Tablet Daily as needed for Pain Active [facility] Cholecalciferol (Vitamin D3) (Vitamin D3) 2,000 Unit Capsule Bedtime Active [facility] Clobetasol Propionate 1 Ea/15 Gm Cr Daily Active [facility] Clopidogrel Bisulfate (Clopidogrel) 75 Mg Tablet Daily Active [facility] Cosentyx Qmonth Active [facility] Dilaudid Pain Pump Use As Directed Active DILAUDID 6.225MG AND 0.9773MG MARCAINE DAILY DELIVERED BY PAIN PUMP [facility] Fe Fumarate/Vit C/B12-If/Fa (Ferocon Capsule) 1 Each Capsule Daily Active [facility] Folic Acid 1 Mg Tablet Twice A Day Active [facility] Guaifenesin (Mucus Relief) 400 Mg Tablet Twice A Day Active [facility] Hydromorphone Hcl 2 Mg Tablet As Needed as needed for Prn Active [facility] Latanoprost 2.5 Ml Drops Bedtime Active [facility] Levothyroxine Sodium 50 Mcg Tablet Daily Active [facility] Liothyronine Sodium 5 Mcg Tablet Every Morning Active [facility] Mirabegron (Myrbetriq) 50 Mg Tab.er.24h Daily Active [facility] Pantoprazole Sodium (Protonix) 40 Mg Tablet.dr Bedtime Active [facility] Pramipexole Di-Hcl (Pramipexole Dihydrochloride) 0.25 Mg Tablet Bedtime Active [facility] Psyllium Husk (Wal-Mucil) 0.52 Gm Capsule Daily Active [facility] Rapatha Injection Use As Directed Active PATIENT TAKES EVERY 2 WEEKS [facility] Rivaroxaban (Xarelto) 10 Mg Tablet Bedtime Active [facility] Ropinirole Hcl 0.25 Mg Tablet Bedtime Active [facility] Sertraline Hcl 50 Mg Tablet Bedtime Active [facility] Sodium Chloride For Inhalation (Hyper-Lamine) 4 Ml Vial.neb Daily as needed for Nasal Congestion Active [facility] Spironolact/Hydrochlorothiazid (Aldactazide 50-50 Tablet) 1 Each Tablet Daily Active [facility] Testosterone Cypionate 200 Mg/1 Ml Vial Active every 2 weeks [facility] Vitamin B12 Use As Directed Active ONCE A WEEK [facility] Aclovate Daily Active [facility] Alprazolam 0.5 Mg Tablet As Needed Active [facility] Bumetanide 2 Mg Tablet Twice A Day Active [facility] Cosentyx 150 Mg .monthly Active [facility] Hydromorphone/Bupiv/0.9NACL/Pf (Hydromor-Bupiva 10 Mcg-0.0625%) 100 Ml Pump.resvr Daily Active [facility] Metolazone 5 Mg Tablet Active TAKE 30 MINUTES PRIOR TO BUMEX DOSE [facility] Rivaroxaban (Xarelto) 15 Mg Tablet Daily Active [facility] Alcometasone Daily Active [facility] Allopurinol 300 Mg Tablet Bedtime Active [facility] Potassium Chloride 20 Meq Tab.er.prt Twice A Day Active [facility] Allergies, Adverse Reactions, Alerts Substance Category Reaction Severity Reaction type Status Date Reported Comments Source No Known Drug Allergies Unknown Allergy to Substance Active 05/26/2019 [facility] No Known Medication Allergies Assertion Drug allergy Medical Group Immunizations No Data Provided for This Section Results Order Name Results Value Reference Range Date Interpretation Comments Source Capillary blood glucose measurement by glucometer (mass/volume) 89 70 - 120 05/28/2019 [facility] Blood leukocytes automated count (number/volume) 4.69 4.8 - 10.8 05/28/2019 [facility] Blood erythrocytes automated count (number/volume) 3.65 4.3 - 5.7 05/28/2019 [facility] Blood hemoglobin measurement (moles/volume) 9.9 14.0 - 18.0 05/28/2019 [facility] Automated blood hematocrit (volume fraction) 32.7 38.2 - 49.6 05/28/2019 [facility] Automated erythrocyte mean corpuscular volume 89.6 81 - 99 05/28/2019 [facility] Automated erythrocyte mean corpuscular hemoglobin (mass per erythrocyte) 27.1 28 - 32 05/28/2019 [facility] Automated erythrocyte mean corpuscular hemoglobin concentration measurement (mass/volume) 30.3 31 - 35 05/28/2019 [facility] RDW BldCo-Rto 15.2 11.7 - 14.4 05/28/2019 [facility] Automated blood platelet count (count/volume) 194 140 - 360 05/28/2019 [facility] Automated blood segmented neutrophil count as percentage of total leukocytes 54.5 38.7 - 80.0 05/28/2019 [facility] Automated blood lymphocyte count as percentage ot total leukocytes 23.2 18.0 - 39.1 05/28/2019 [facility] Automated blood monocyte count as percentage of total leukocytes 15.1 4.4 - 11.3 05/28/2019 [facility] Automated blood eosinophil count as percentage of total leukocytes 6.4 0.0 - 6.0 05/28/2019 [facility] Automated blood basophil count as percentage of total leukocytes 0.6 0.0 - 1.0 05/28/2019 [facility] IM GRANULOCYTES % 0.2 0.0 - 1.0 05/28/2019 [facility] Automated blood neutrophil count 2.6 2.1 - 6.9 05/28/2019 [facility] Blood lymphocytes count (number/volume) 1.1 1.0 - 3.2 05/28/2019 [facility] Blood monocytes automated count (number/volume) 0.7 0.2 - 0.8 05/28/2019 [facility] Automated blood eosinophil count 0.3 0.0 - 0.4 05/28/2019 [facility] Automated blood basophil count (count/volume) 0.0 0.0 - 0.1 05/28/2019 [facility] Absolute Immature Granulocyte (auto 0.01 0 - 0.1 05/28/2019 [facility] Serum or plasma sodium measurement (moles/volume) 141 136 - 145 05/28/2019 [facility] Serum or plasma potassium measurement (moles/volume) 3.8 3.5 - 5.1 05/28/2019 [facility] Serum or plasma chloride measurement (moles/volume) 88 98 - 107 05/28/2019 [facility] Serum or plasma carbon dioxide, total measurement (moles/volume) 43 22 - 29 05/28/2019 [facility] Serum or plasma anion gap 13.8 8 - 16 05/28/2019 [facility] Serum or plasma urea nitrogen measurement (mass/volume) 43 7 - 26 05/28/2019 [facility] Serum or plasma creatinine measurement (mass/volume) 1.68 0.72 - 1.25 05/28/2019 [facility] Serum or plasma urea nitrogen/creatinine mass ratio 26 6 - 25 05/28/2019 [facility] Estimated glomerular filtration rate (GFR) determination 40 60 05/28/2019 [facility] Glucose measurement 98 74 - 118 05/28/2019 [facility] Serum or plasma calcium measurement (mass/volume) 9.5 8.4 - 10.2 05/28/2019 [facility] Serum or plasma magnesium measurement (mass/volume) 2.2 1.3 - 2.1 05/27/2019 [facility] BNP Bld-mCnc 328.4 0 - 100 05/27/2019 [facility] Lactic Acid Level 14.1 4.5 - 19.8 05/26/2019 [facility] Blood culture NO GROWTH AFTER 24 HOURS 05/26/2019 [facility] Urine color determination YELLOW YELLOW 05/26/2019 [facility] Urine clarity CLEAR CLEAR 05/26/2019 [facility] Specific gravity of Urine by Test strip 1.010 1.010 - 1.025 05/26/2019 [facility] Urine pH measurement by automated test strip 7 5 - 7 05/26/2019 [facility] Urine leukocyte esterase detection by automated test strip NEGATIVE NEGATIVE 05/26/2019 [facility] Urine nitrite detection by automated test strip NEGATIVE NEGATIVE 05/26/2019 [facility] Urine protein detection by automated test strip NEGATIVE NEGATIVE 05/26/2019 [facility] Urine glucose detection by automated test strip NEGATIVE NEGATIVE 05/26/2019 [facility] Urine ketones detection by automated test strip NEGATIVE NEGATIVE 05/26/2019 [facility] Urine urobilinogen measurement by test strip (mass/volume) 0.2 0.2 - 1 05/26/2019 [facility] Urine total bilirubin detection NEGATIVE NEGATIVE 05/26/2019 [facility] Urine erythrocytes detection NEGATIVE NEGATIVE 05/26/2019 [facility] Automated urine sediment leukocyte count by microscopy (number/high power field) 0-5 0 - 5 05/26/2019 [facility] Erythrocytes detection in urine sediment by light microscopy NONE 0 - 5 05/26/2019 [facility] Bacteria detection in urine sediment by light microscopy NONE NONE 05/26/2019 [facility] Epithelial cells detection in urine sediment by light microscopy RARE NONE 05/26/2019 [facility] Renal epithelial cells detection in urine sediment by light microscopy RARE NONE 05/26/2019 [facility] Prothrombin time (PT) in platelet poor plasma by coagulation assay 18.3 11.9 - 14.5 05/26/2019 [facility] INR in Platelet poor plasma by Coagulation assay 1.46 05/26/2019 [facility] Activated partial thromboplastin time (aPTT) in platelet poor plasma bycoagulation assay 56.4 23.8 - 35.5 05/26/2019 [facility] Serum or plasma total bilirubin measurement (mass/volume) 0.4 0.2 - 1.2 05/26/2019 [facility] Aspartate Amino Transf (AST/SGOT) 13 5 - 34 05/26/2019 [facility] Serum or plasma alanine aminotransferase measurement (enzymatic activity/volume) 10 0 - 55 05/26/2019 [facility] Serum or plasma protein measurement (mass/volume) 6.5 6.5 - 8.1 05/26/2019 [facility] Serum or plasma albumin measurement (mass/volume) 3.3 3.5 - 5.0 05/26/2019 [facility] Plasma globulin measurement (mass/volume) 3.2 2.3 - 3.5 05/26/2019 [facility] Serum or plasma albumin/globulin mass ratio 1.0 0.8 - 2.0 05/26/2019 [facility] Serum or plasma alkaline phosphatase measurement (enzymatic activity/volume) 109 40 - 150 05/26/2019 [facility] Serum or plasma creatine kinase measurement (enzymatic activity/volume) 89 30 - 200 05/26/2019 [facility] Serum or plasma creatine kinase MB measurement (mass/volume) 2.80 0 - 5.0 05/26/2019 [facility] Troponin I measurement by highly sensitive enzyme immunoassay 0.013 0 - 0.300 05/26/2019 [facility] Serum or plasma lipase measurement (enzymatic activity/volume) 19 8 - 78 05/26/2019 [facility] URINE AND STOOL POC UA Bld Trace *NA* (05/18/19 12:35 PM) Negative 05/18/2019 [facility] URINE AND STOOL POC UA Bili Negative *NA* (05/18/19 12:35 PM) Negative 05/18/2019 [facility] URINE AND STOOL POC UA Ket Negative mg/dL Negative mg/dL 05/18/2019 [facility] URINE AND STOOL POC UA Uro 0.2 0.1 - 1.0 05/18/2019 [facility] URINE AND STOOL POC UA Nit Positive *ABN* (05/18/19 12:35 PM) Negative 05/18/2019 [facility] URINE AND STOOL POC UA LeukEst Small *ABN* (05/18/19 12:35 PM) Negative 05/18/2019 [facility] URINE AND STOOL POC UA Color Yellow *NA* (05/18/19 12:35 PM) Yellow 05/18/2019 [facility] URINE AND STOOL POC UA Turbidity Clear *NA* (05/18/19 12:35 PM) Clear 05/18/2019 [facility] URINE AND STOOL POC UA SG 1.015 <=1.030 05/18/2019 [facility] URINE AND STOOL POC UA Glu Negative mg/dL Negative mg/dL 05/18/2019 [facility] URINE AND STOOL POC UA pH 6.5 5.0 - 8.0 05/18/2019 [facility] URINE AND STOOL POC UA Prot Negative mg/dL Negative mg/dL 05/18/2019 [facility] Capillary blood glucose measurement by glucometer (mass/volume) 126 70 - 120 05/04/2019 [facility] Blood leukocytes automated count (number/volume) 10.03 4.8 - 10.8 05/04/2019 [facility] Blood erythrocytes automated count (number/volume) 5.79 4.3 - 5.7 05/04/2019 [facility] Blood hemoglobin measurement (moles/volume) 16.2 14.0 - 18.0 05/04/2019 [facility] Automated blood hematocrit (volume fraction) 51.0 38.2 - 49.6 05/04/2019 [facility] Automated erythrocyte mean corpuscular volume 88.1 81 - 99 05/04/2019 [facility] Automated erythrocyte mean corpuscular hemoglobin (mass per erythrocyte) 28.0 28 - 32 05/04/2019 [facility] Automated erythrocyte mean corpuscular hemoglobin concentration measurement (mass/volume) 31.8 31 - 35 05/04/2019 [facility] RDW BldCo-Rto 14.8 11.7 - 14.4 05/04/2019 [facility] Automated blood platelet count (count/volume) 292 140 - 360 05/04/2019 [facility] Automated blood segmented neutrophil count as percentage of total leukocytes 77.1 38.7 - 80.0 05/04/2019 [facility] Automated blood lymphocyte count as percentage ot total leukocytes 14.1 18.0 - 39.1 05/04/2019 [facility] Automated blood monocyte count as percentage of total leukocytes 8.2 4.4 - 11.3 05/04/2019 [facility] Automated blood eosinophil count as percentage of total leukocytes 0.0 0.0 - 6.0 05/04/2019 [facility] Automated blood basophil count as percentage of total leukocytes 0.1 0.0 - 1.0 05/04/2019 [facility] IM GRANULOCYTES % 0.5 0.0 - 1.0 05/04/2019 [facility] Automated blood neutrophil count 7.7 2.1 - 6.9 05/04/2019 [facility] Blood lymphocytes count (number/volume) 1.4 1.0 - 3.2 05/04/2019 [facility] Blood monocytes automated count (number/volume) 0.8 0.2 - 0.8 05/04/2019 [facility] Automated blood eosinophil count 0.0 0.0 - 0.4 05/04/2019 [facility] Automated blood basophil count (count/volume) 0.0 0.0 - 0.1 05/04/2019 [facility] Absolute Immature Granulocyte (auto 0.05 0 - 0.1 05/04/2019 [facility] Serum or plasma sodium measurement (moles/volume) 138 136 - 145 05/04/2019 [facility] Serum or plasma potassium measurement (moles/volume) 3.5 3.5 - 5.1 05/04/2019 [facility] Serum or plasma chloride measurement (moles/volume) 81 98 - 107 05/04/2019 [facility] Serum or plasma carbon dioxide, total measurement (moles/volume) 43 22 - 29 05/04/2019 [facility] Serum or plasma anion gap 17.5 8 - 16 05/04/2019 [facility] Serum or plasma urea nitrogen measurement (mass/volume) 95 7 - 26 05/04/2019 [facility] Serum or plasma creatinine measurement (mass/volume) 2.57 0.72 - 1.25 05/04/2019 [facility] Serum or plasma urea nitrogen/creatinine mass ratio 37 6 - 25 05/04/2019 [facility] Estimated glomerular filtration rate (GFR) determination 25 60 05/04/2019 [facility] Glucose measurement 120 74 - 118 05/04/2019 [facility] Serum or plasma calcium measurement (mass/volume) 10.2 8.4 - 10.2 05/04/2019 [facility] Serum or plasma magnesium measurement (mass/volume) 3.1 1.3 - 2.1 05/04/2019 [facility] BNP Bld-mCnc 175.1 0 - 100 05/04/2019 [facility] Serum or plasma uric acid measurement (mass/volume) 8.3 4.8 - 8.0 04/30/2019 [facility] Blood culture NO GROWTH AFTER 72 HOURS 04/30/2019 [facility] Serum or plasma uric acid measurement (mass/volume) 8.3 4.8 - 8.0 04/30/2019 [facility] Hemoglobin A1c Percent 5.6 4.0 - 7.0 04/25/2019 [facility] Hemoglobin A1c Percent 5.6 4.0 - 7.0 04/25/2019 [facility] Serum or plasma creatine kinase measurement (enzymatic activity/volume) 73 30 - 200 04/24/2019 [facility] Serum or plasma creatine kinase MB measurement (mass/volume) 2.50 0 - 5.0 04/24/2019 [facility] Troponin I measurement by highly sensitive enzyme immunoassay < 0.001 0 - 0.300 04/24/2019 [facility] Serum or plasma total bilirubin measurement (mass/volume) 0.5 0.2 - 1.2 04/24/2019 [facility] Aspartate Amino Transf (AST/SGOT) 16 5 - 34 04/24/2019 [facility] Serum or plasma alanine aminotransferase measurement (enzymatic activity/volume) 13 0 - 55 04/24/2019 [facility] Serum or plasma protein measurement (mass/volume) 6.3 6.5 - 8.1 04/24/2019 [facility] Serum or plasma albumin measurement (mass/volume) 3.4 3.5 - 5.0 04/24/2019 [facility] Plasma globulin measurement (mass/volume) 2.9 2.3 - 3.5 04/24/2019 [facility] Serum or plasma albumin/globulin mass ratio 1.2 0.8 - 2.0 04/24/2019 [facility] Serum or plasma alkaline phosphatase measurement (enzymatic activity/volume) 87 40 - 150 04/24/2019 [facility] Prothrombin time (PT) in platelet poor plasma by coagulation assay 13.7 11.9 - 14.5 04/23/2019 [facility] INR in Platelet poor plasma by Coagulation assay 1.00 04/23/2019 [facility] Activated partial thromboplastin time (aPTT) in platelet poor plasma bycoagulation assay 35.8 23.8 - 35.5 04/23/2019 [facility] Urine color determination YELLOW YELLOW 04/23/2019 [facility] Urine clarity CLEAR CLEAR 04/23/2019 [facility] Specific gravity of Urine by Test strip 1.010 1.010 - 1.025 04/23/2019 [facility] Urine pH measurement by automated test strip 6 5 - 7 04/23/2019 [facility] Urine leukocyte esterase detection by automated test strip NEGATIVE NEGATIVE 04/23/2019 [facility] Urine nitrite detection by automated test strip NEGATIVE NEGATIVE 04/23/2019 [facility] Urine protein detection by automated test strip NEGATIVE NEGATIVE 04/23/2019 [facility] Urine glucose detection by automated test strip NEGATIVE NEGATIVE 04/23/2019 [facility] Urine ketones detection by automated test strip NEGATIVE NEGATIVE 04/23/2019 [facility] Urine urobilinogen measurement by test strip (mass/volume) 0.2 0.2 - 1 04/23/2019 [facility] Urine total bilirubin detection NEGATIVE NEGATIVE 04/23/2019 [facility] Urine erythrocytes detection NEGATIVE NEGATIVE 04/23/2019 [facility] Automated urine sediment leukocyte count by microscopy (number/high power field) 6-10 0 - 5 04/23/2019 [facility] Erythrocytes detection in urine sediment by light microscopy NONE 0 - 5 04/23/2019 [facility] Bacteria detection in urine sediment by light microscopy MODERATE NONE 04/23/2019 [facility] Epithelial cells detection in urine sediment by light microscopy FEW NONE 04/23/2019 [facility] Hyaline casts detection in urine sediment by light microscopy 0-1 0 - 1 04/23/2019 [facility] Hyaline casts detection in urine sediment by light microscopy 0-1 0 - 1 04/23/2019 [facility] Capillary blood glucose measurement by glucometer (mass/volume) 126 70 - 120 02/15/2019 [facility] Blood leukocytes automated count (number/volume) 8.88 4.8 - 10.8 02/15/2019 [facility] Blood erythrocytes automated count (number/volume) 6.03 4.3 - 5.7 02/15/2019 [facility] Blood hemoglobin measurement (moles/volume) 16.4 14.0 - 18.0 02/15/2019 [facility] Automated blood hematocrit (volume fraction) 54.5 38.2 - 49.6 02/15/2019 [facility] Automated erythrocyte mean corpuscular volume 90.4 81 - 99 02/15/2019 [facility] Automated erythrocyte mean corpuscular hemoglobin (mass per erythrocyte) 27.2 28 - 32 02/15/2019 [facility] Automated erythrocyte mean corpuscular hemoglobin concentration measurement (mass/volume) 30.1 31 - 35 02/15/2019 [facility] RDW BldCo-Rto 16.2 11.7 - 14.4 02/15/2019 [facility] Automated blood platelet count (count/volume) 293 140 - 360 02/15/2019 [facility] Automated blood segmented neutrophil count as percentage of total leukocytes 65.2 38.7 - 80.0 02/15/2019 [facility] Automated blood lymphocyte count as percentage ot total leukocytes 19.8 18.0 - 39.1 02/15/2019 [facility] Automated blood monocyte count as percentage of total leukocytes 11.4 4.4 - 11.3 02/15/2019 [facility] Automated blood eosinophil count as percentage of total leukocytes 2.1 0.0 - 6.0 02/15/2019 [facility] Automated blood basophil count as percentage of total leukocytes 1.0 0.0 - 1.0 02/15/2019 [facility] IM GRANULOCYTES % 0.5 0.0 - 1.0 02/15/2019 [facility] Automated blood neutrophil count 5.8 2.1 - 6.9 02/15/2019 [facility] Blood lymphocytes count (number/volume) 1.8 1.0 - 3.2 02/15/2019 [facility] Blood monocytes automated count (number/volume) 1.0 0.2 - 0.8 02/15/2019 [facility] Automated blood eosinophil count 0.2 0.0 - 0.4 02/15/2019 [facility] Automated blood basophil count (count/volume) 0.1 0.0 - 0.1 02/15/2019 [facility] Absolute Immature Granulocyte (auto 0.04 0 - 0.1 02/15/2019 [facility] Prothrombin time (PT) in platelet poor plasma by coagulation assay 13.4 11.9 - 14.5 02/15/2019 [facility] INR in Platelet poor plasma by Coagulation assay 0.97 02/15/2019 [facility] Activated partial thromboplastin time (aPTT) in platelet poor plasma bycoagulation assay 38.9 23.8 - 35.5 02/15/2019 [facility] Serum or plasma sodium measurement (moles/volume) 139 136 - 145 02/15/2019 [facility] Serum or plasma potassium measurement (moles/volume) 4.7 3.5 - 5.1 02/15/2019 [facility] Serum or plasma chloride measurement (moles/volume) 84 98 - 107 02/15/2019 [facility] Serum or plasma carbon dioxide, total measurement (moles/volume) 42 22 - 29 02/15/2019 [facility] Serum or plasma anion gap 17.7 8 - 16 02/15/2019 [facility] Serum or plasma urea nitrogen measurement (mass/volume) 68 7 - 26 02/15/2019 [facility] Serum or plasma creatinine measurement (mass/volume) 2.16 0.72 - 1.25 02/15/2019 [facility] Serum or plasma urea nitrogen/creatinine mass ratio 31 6 - 25 02/15/2019 [facility] Estimated glomerular filtration rate (GFR) determination 30 60 02/15/2019 [facility] Glucose measurement 140 74 - 118 02/15/2019 [facility] Serum or plasma calcium measurement (mass/volume) 10.4 8.4 - 10.2 02/15/2019 [facility] Serum or plasma magnesium measurement (mass/volume) 3.3 1.3 - 2.1 02/15/2019 [facility] BNP Bld-mCnc 91.6 0 - 100 02/15/2019 [facility] Hemoglobin A1c Percent 6.2 4.0 - 7.0 02/12/2019 [facility] Phosphorus measurement 3.5 2.3 - 4.7 02/12/2019 [facility] Serum or plasma thyroxine (T4) free measurement (mass/volume) 0.92 0.9 - 1.8 02/12/2019 [facility] Serum or plasma thyrotropin measurement by detection limit <=0.005 miu/l (units/volume) 1.875 0.350 - 4.940 02/12/2019 [facility] Serum or plasma thyroxine (T4) free measurement (mass/volume) 0.92 0.9 - 1.8 02/12/2019 [facility] Serum or plasma thyrotropin measurement by detection limit <=0.005 miu/l (units/volume) 1.875 0.350 - 4.940 02/12/2019 [facility] Serum or plasma thyrotropin measurement by detection limit <=0.005 miu/l (units/volume) 1.875 0.350 - 4.940 02/12/2019 [facility] Phosphorus measurement 3.5 2.3 - 4.7 02/12/2019 [facility] Serum or plasma creatine kinase measurement (enzymatic activity/volume) 127 30 - 200 02/11/2019 [facility] Serum or plasma creatine kinase MB measurement (mass/volume) 2.50 0 - 5.0 02/11/2019 [facility] Troponin I measurement by highly sensitive enzyme immunoassay 0.017 0 - 0.300 02/11/2019 [facility] Serum or plasma total bilirubin measurement (mass/volume) 0.6 0.2 - 1.2 02/09/2019 [facility] Aspartate Amino Transf (AST/SGOT) 15 5 - 34 02/09/2019 [facility] Serum or plasma alanine aminotransferase measurement (enzymatic activity/volume) 10 0 - 55 02/09/2019 [facility] Serum or plasma protein measurement (mass/volume) 6.7 6.5 - 8.1 02/09/2019 [facility] Serum or plasma albumin measurement (mass/volume) 3.4 3.5 - 5.0 02/09/2019 [facility] Plasma globulin measurement (mass/volume) 3.3 2.3 - 3.5 02/09/2019 [facility] Serum or plasma albumin/globulin mass ratio 1.0 0.8 - 2.0 02/09/2019 [facility] Serum or plasma alkaline phosphatase measurement (enzymatic activity/volume) 78 40 - 150 02/09/2019 [facility] Urine color determination YELLOW YELLOW 02/08/2019 [facility] Urine clarity CLEAR CLEAR 02/08/2019 [facility] Specific gravity of Urine by Test strip 1.010 1.010 - 1.025 02/08/2019 [facility] Urine pH measurement by automated test strip 7 5 - 7 02/08/2019 [facility] Urine leukocyte esterase detection by dipstick NEGATIVE NEGATIVE 02/08/2019 [facility] Urine nitrite detection NEGATIVE NEGATIVE 02/08/2019 [facility] Urine protein measurement by test strip (mass/volume) NEGATIVE NEGATIVE 02/08/2019 [facility] Urine glucose detection NEGATIVE NEGATIVE 02/08/2019 [facility] Urine ketones detection by automated test strip NEGATIVE NEGATIVE 02/08/2019 [facility] Urine urobilinogen measurement by test strip (mass/volume) 0.2 0.2 - 1 02/08/2019 [facility] Urine total bilirubin measurement (mass/volume) NEGATIVE NEGATIVE 02/08/2019 [facility] Urine erythrocytes detection NEGATIVE NEGATIVE 02/08/2019 [facility] Automated urine sediment leukocyte count by microscopy (number/high power field) NONE 0 - 5 02/08/2019 [facility] Erythrocytes detection in urine sediment by light microscopy NONE 0 - 5 02/08/2019 [facility] Bacteria detection in urine sediment by light microscopy NONE NONE 02/08/2019 [facility] Epithelial cells detection in urine sediment by light microscopy RARE NONE 02/08/2019 [facility] Capillary blood glucose measurement by glucometer (mass/volume) 151 70 - 120 01/09/2019 [facility] Blood leukocytes automated count (number/volume) 8.53 4.8 - 10.8 01/09/2019 [facility] Blood erythrocytes automated count (number/volume) 6.08 4.3 - 5.7 01/09/2019 [facility] Blood hemoglobin measurement (moles/volume) 16.4 14.0 - 18.0 01/09/2019 [facility] Automated blood hematocrit (volume fraction) 54.7 38.2 - 49.6 01/09/2019 [facility] Automated erythrocyte mean corpuscular volume 90.0 81 - 99 01/09/2019 [facility] Automated erythrocyte mean corpuscular hemoglobin (mass per erythrocyte) 27.0 28 - 32 01/09/2019 [facility] Automated erythrocyte mean corpuscular hemoglobin concentration measurement (mass/volume) 30.0 31 - 35 01/09/2019 [facility] RDW BldCo-Rto 17.9 11.7 - 14.4 01/09/2019 [facility] Automated blood platelet count (count/volume) 220 140 - 360 01/09/2019 [facility] Automated blood segmented neutrophil count as percentage of total leukocytes 87.2 38.7 - 80.0 01/09/2019 [facility] Automated blood lymphocyte count as percentage ot total leukocytes 7.0 18.0 - 39.1 01/09/2019 [facility] Automated blood monocyte count as percentage of total leukocytes 4.6 4.4 - 11.3 01/09/2019 [facility] Automated blood eosinophil count as percentage of total leukocytes 0.0 0.0 - 6.0 01/09/2019 [facility] Automated blood basophil count as percentage of total leukocytes 0.1 0.0 - 1.0 01/09/2019 [facility] IM GRANULOCYTES % 1.1 0.0 - 1.0 01/09/2019 [facility] Automated blood neutrophil count 7.4 2.1 - 6.9 01/09/2019 [facility] Blood lymphocytes count (number/volume) 0.6 1.0 - 3.2 01/09/2019 [facility] Blood monocytes automated count (number/volume) 0.4 0.2 - 0.8 01/09/2019 [facility] Automated blood eosinophil count 0.0 0.0 - 0.4 01/09/2019 [facility] Automated blood basophil count (count/volume) 0.0 0.0 - 0.1 01/09/2019 [facility] Absolute Immature Granulocyte (auto 0.09 0 - 0.1 01/09/2019 [facility] Serum or plasma sodium measurement (moles/volume) 140 136 - 145 01/09/2019 [facility] Serum or plasma potassium measurement (moles/volume) 4.4 3.5 - 5.1 01/09/2019 [facility] Serum or plasma chloride measurement (moles/volume) 91 98 - 107 01/09/2019 [facility] Serum or plasma carbon dioxide, total measurement (moles/volume) 40 22 - 29 01/09/2019 [facility] Serum or plasma anion gap 13.4 8 - 16 01/09/2019 [facility] Serum or plasma urea nitrogen measurement (mass/volume) 33 7 - 26 01/09/2019 [facility] Serum or plasma creatinine measurement (mass/volume) 1.41 0.72 - 1.25 01/09/2019 [facility] Serum or plasma urea nitrogen/creatinine mass ratio 23 6 - 25 01/09/2019 [facility] Estimated glomerular filtration rate (GFR) determination 49 60 01/09/2019 [facility] Glucose measurement 154 74 - 118 01/09/2019 [facility] Serum or plasma calcium measurement (mass/volume) 8.8 8.4 - 10.2 01/09/2019 [facility] Serum or plasma magnesium measurement (mass/volume) 2.5 1.3 - 2.1 01/09/2019 [facility] BNP Bld-mCnc 381.1 0 - 100 01/09/2019 [facility] Differential Total Cells Counted 100 01/08/2019 [facility] Manual blood neutrophils/100 leukocytes 91 40 - 74 01/08/2019 [facility] Manual blood lymphocytes/100 leukocytes 6 19 - 48 01/08/2019 [facility] Manual blood monocytes/100 leukocytes 3 3.4 - 9.0 01/08/2019 [facility] Blood platelets count by estimate (number/volume) ADEQUATE 01/08/2019 [facility] Platelet morphology NORMAL 01/08/2019 [facility] RBC morphology NORMAL 01/08/2019 [facility] Differential Total Cells Counted 100 01/08/2019 [facility] Manual blood neutrophils/100 leukocytes 91 40 - 74 01/08/2019 [facility] Manual blood lymphocytes/100 leukocytes 6 19 - 48 01/08/2019 [facility] Manual blood monocytes/100 leukocytes 3 3.4 - 9.0 01/08/2019 [facility] Blood platelets count by estimate (number/volume) ADEQUATE 01/08/2019 [facility] Platelet morphology NORMAL 01/08/2019 [facility] RBC morphology NORMAL 01/08/2019 [facility] Urine color determination STRAW YELLOW 01/07/2019 [facility] Urine clarity CLEAR CLEAR 01/07/2019 [facility] Specific gravity of Urine by Test strip 1.010 1.010 - 1.025 01/07/2019 [facility] Urine pH measurement by automated test strip 6 5 - 7 01/07/2019 [facility] Urine leukocyte esterase detection by dipstick NEGATIVE NEGATIVE 01/07/2019 [facility] Urine nitrite detection NEGATIVE NEGATIVE 01/07/2019 [facility] Urine protein measurement by test strip (mass/volume) NEGATIVE NEGATIVE 01/07/2019 [facility] Urine glucose detection NEGATIVE NEGATIVE 01/07/2019 [facility] Urine ketones detection by automated test strip NEGATIVE NEGATIVE 01/07/2019 [facility] Urine urobilinogen measurement by test strip (mass/volume) 0.2 0.2 - 1 01/07/2019 [facility] Urine total bilirubin measurement (mass/volume) NEGATIVE NEGATIVE 01/07/2019 [facility] Urine erythrocytes detection NEGATIVE NEGATIVE 01/07/2019 [facility] Automated urine sediment leukocyte count by microscopy (number/high power field) 0-5 0 - 5 01/07/2019 [facility] Erythrocytes detection in urine sediment by light microscopy NONE 0 - 5 01/07/2019 [facility] Bacteria detection in urine sediment by light microscopy NONE NONE 01/07/2019 [facility] Epithelial cells detection in urine sediment by light microscopy MODERATE NONE 01/07/2019 [facility] Transitional cells detection in urine sediment by light microscopy RARE NONE 01/07/2019 [facility] Hyaline casts detection in urine sediment by light microscopy >15 0 - 1 01/07/2019 [facility] Transitional cells detection in urine sediment by light microscopy RARE NONE 01/07/2019 [facility] Hyaline casts detection in urine sediment by light microscopy >15 0 - 1 01/07/2019 [facility] Serum or plasma creatine kinase measurement (enzymatic activity/volume) 66 30 - 200 01/06/2019 [facility] Serum or plasma creatine kinase MB measurement (mass/volume) 2.50 0 - 5.0 01/06/2019 [facility] Troponin I measurement by highly sensitive enzyme immunoassay 0.005 0 - 0.300 01/06/2019 [facility] Hemoglobin A1c Percent 6.2 4.0 - 7.0 01/06/2019 [facility] Serum or plasma thyroxine (T4) free measurement (mass/volume) 0.76 0.9 - 1.8 01/06/2019 [facility] Serum or plasma thyrotropin measurement by detection limit <=0.005 miu/l (units/volume) 0.739 0.350 - 4.940 01/06/2019 [facility] Procalcitonin (PCT) level 0.07 0.00 - 0.08 01/06/2019 [facility] Procalcitonin (PCT) level 0.07 0.00 - 0.08 01/06/2019 [facility] Procalcitonin (PCT) level 0.07 0.00 - 0.08 01/06/2019 [facility] Procalcitonin (PCT) level 0.07 0.00 - 0.08 01/06/2019 [facility] Arterial blood pH measurement 7.35 7.31 - 7.41 01/05/2019 [facility] pCO2 BldA 66 41 - 51 01/05/2019 [facility] pCO2 BldA 98 80 - 105 01/05/2019 [facility] Arterial blood bicarbonate measurement (moles/volume) 36 23 - 28 01/05/2019 [facility] Arterial blood base excess by calculation 10.0 -2 - 3 - 2 01/05/2019 [facility] Arterial blood oxygen saturation measurement 97.0 95 - 98 01/05/2019 [facility] FiO2 35 01/05/2019 [facility] pCO2 BldA 98 80 - 105 01/05/2019 [facility] Arterial blood bicarbonate measurement (moles/volume) 36 23 - 28 01/05/2019 [facility] Arterial blood base excess by calculation 10.0 -2 - 3 - 2 01/05/2019 [facility] Arterial blood oxygen saturation measurement 97.0 95 - 98 01/05/2019 [facility] FiO2 35 01/05/2019 [facility] FiO2 35 01/05/2019 [facility] FiO2 35 01/05/2019 [facility] pCO2 BldA 66 41 - 51 01/05/2019 [facility] Arterial blood pH measurement 7.35 7.31 - 7.41 01/05/2019 [facility] Prothrombin time (PT) in platelet poor plasma by coagulation assay 16.2 11.9 - 14.5 01/05/2019 [facility] INR in Platelet poor plasma by Coagulation assay 1.24 01/05/2019 [facility] Activated partial thromboplastin time (aPTT) in platelet poor plasma bycoagulation assay 38.8 23.8 - 35.5 01/05/2019 [facility] Lactic Acid Level 13.5 4.5 - 19.8 01/05/2019 [facility] Serum or plasma total bilirubin measurement (mass/volume) 0.6 0.2 - 1.2 01/05/2019 [facility] Aspartate Amino Transf (AST/SGOT) 17 5 - 34 01/05/2019 [facility] Serum or plasma alanine aminotransferase measurement (enzymatic activity/volume) 14 0 - 55 01/05/2019 [facility] Serum or plasma protein measurement (mass/volume) 6.6 6.5 - 8.1 01/05/2019 [facility] Serum or plasma albumin measurement (mass/volume) 3.5 3.5 - 5.0 01/05/2019 [facility] Plasma globulin measurement (mass/volume) 3.1 2.3 - 3.5 01/05/2019 [facility] Serum or plasma albumin/globulin mass ratio 1.1 0.8 - 2.0 01/05/2019 [facility] Serum or plasma alkaline phosphatase measurement (enzymatic activity/volume) 106 40 - 150 01/05/2019 [facility] Blood culture NO GROWTH AFTER 5 DAYS, FINAL REPORT 01/05/2019 [facility] Lactic Acid Level 13.5 4.5 - 19.8 01/05/2019 [facility] Lactic Acid Level 13.5 4.5 - 19.8 01/05/2019 [facility] Urine creatinine measurement (mass/volume) 48.99 63 - 166 12/12/2018 [facility] Random urine protein/creatinine ratio 0.41 12/12/2018 [facility] Random urine protein/creatinine ratio 0.41 12/12/2018 [facility] Urine protein measurement (mass/volume) 20.3 1 - 14 12/12/2018 [facility] Blood hypochromia detection by light microscopy SLIGHT 09/15/2018 [facility] Blood ovalocytes detection by light microscopy FEW 09/15/2018 [facility] Blood ovalocytes detection by light microscopy FEW 09/15/2018 [facility] Giant platelet detection FEW 09/15/2018 [facility] Phosphorus measurement 2.9 2.3 - 4.7 08/04/2018 [facility] Urine potassium measurement (moles/volume) 24.1 08/01/2018 [facility] CHEM PANEL eGFR 55 06/24/2016 Result Comment: [...] should be multiplied by the estimated BMI. [facility] CHEM PANEL POC Creatinine 1.3 0.5 - 1.4 06/24/2016 [facility] CHEM PANEL eGFR 55 04/10/2016 Result [...] should be multiplied by the estimated BMI. 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 Total exam ADW=6097 mGy-cm. Impression: 1. Unremarkable barium swallow esophagram [...] bilateral neural foraminal narrowing at L4-L5. SL: [id number] 12/04/2017 [facility] Spine cervical wo contrast MRI Study: [...] foraminal narrowing, left greater than right. SL: [id number] 12/04/2017 [facility] pelvis and [...] nerve sheath tumor, or epidermoid cyst. SL: [id number] 06/24/2016 [facility] Spine lumbar w/wo contrast MRI Patient Name: STEVE BENEDICT : 1945; Age: 70 years y/o Male MR: [id number] Study: Spine lumbar w/wo contrast MRI 06/24/2016 [...] compatible with acute on chronic denervation. SL: [id number] 06/24/2016 [facility] Spine thoracic wo contrast CT CT THORACIC [...] 2. No acute abnormalities are visualized. SL:06/19/2016 [facility] lumbar wo contrast CT CT THORACIC [...] 2. No acute abnormalities are visualized. SL:06/19/2016 [facility] cervical 2 or 3 view DX [...] 2. No acute fracture or malalignment. 04/23/2016 [facility] Thoracic w/wo contrast MRI MRI THORACIC SPINE [...] and multiple bilateral renal cysts. SL:16 04/10/2016 [facility] Spine lumbar w/wo contrast MRI EXAM: [...] smoking and anemia among other etiologies. SL: [id number] 03/28/2016 [facility] Consultation Notes No Data Provided for This Section Discharge Summaries No Data Provided for This Section History and Physicals No Data Provided for This Section Vital Signs Vital Sign Value Date Comments Source Height 175.26 cm 06/02/2019 [facility] Weight 106.08 06/02/2019 [facility] BMI Calculated 34.54 06/02/2019 [facility] BMI Calculated 34.5 04/19/2019 [facility] Height 175.26 cm 04/19/2019 [facility] Weight 105.966 04/19/2019 [facility] Encounters Location Location Details Encounter Type Encounter Number Reason For Visit Attending Provider ADM Date DC Date Status Source [facility] [place] [facility] Services [id number] Monique Reed 03/06/2016 03/07/2016 [facility] Outpatient [id number] Christopher Summers 03/28/2016 03/29/2016 [facility] Outpatient [facility] - [place] Out[facility] Diag Services [id number] Angel Martínez 04/02/2016 04/03/2016 [facility] Outpatient [id number] Eldia Valenzuela 04/10/2016 04/11/2016 [facility] Outpatient [facility] - [place] Outpt Diag Services [id number] Monique Reed 04/23/2016 04/24/2016 [facility] Outpatient [id number] FADI DANIEL 06/06/[address] [facility] Outpatient [id number] Fadi Daniel Jr 06/19/2016 06/20/2016 [facility] Outpatient [id number] Fadi Daniel Jr 06/24/2016 06/25/2016 [facility] Outpatient [id number] FADI DANIEL 07/11/2016 [facility] Outpatient [facility] - [place] Outpt Diag Services [id number] Mila Jones 04/23/2017 04/24/2017 [facility] [place] [facility] Outpatient [id number] Oleksandr Whitt 12/05/2017 12/05/2017 [facility] Discharged Inpatient [id number] HAILEE HERNANDEZ MD 08/02/2018 08/05/2018 [facility] Discharged Inpatient [id number] ROSALIE MEDINA MD 09/13/2018 09/16/2018 [facility] Phone Message [id number] 11/04/2018 11/06/2018 [facility] Discharged Inpatient (obs) [id number] HAILEE HERNANDEZ MD 11/06/2018 11/07/2018 [facility] Outpatient [id number] CARLA REYNAGA 11/30/2018 Active [facility]istered [facility] [id number] HAILEE HERNANDEZ MD 12/08/2018 [facility] Discharged Inpatient [id number] ALINA PULIDO MD 12/13/2018 12/15/2018 [facility] Outpatient [id number] URODYNAMICS 12/16/2018 Active [facility] Outpatient [id number] CARLA REYNAGA 12/22/2018 Active [facility] - [place] Outpt Diag Services [id number] Mila Jones 12/28/2018 12/29/2018 [facility] [place] Discharged Inpatient (obs) [id number] HAILEE HERNANDEZ MD 12/30/2018 12/31/2018 [facility] Discharged Inpatient [id number] ROSALIE MEDINA MD 01/05/2019 01/09/2019 [facility] Outpatient [id number] Carla Reynaga 02/02/2019 Active [facility] Discharged Inpatient [id number] ROSALIE MEDINA MD 02/08/2019 02/15/2019 [facility] Outpatient [id number] Carla Reynaga 04/19/2019 Active [facility] [place] Outpatient [id number] Carla Reynaga 04/19/2019 04/20/2019 [facility] Outpatient [id number] NURSE VISIT 04/21/[address] [facility] Ambulatory Pre-Reg [id number] Christopher Summers 04/21/2019 04/21/2019 [facility] Discharged Inpatient [id number] ROSALIE MEDINA MD 04/23/2019 05/04/2019 [facility] Outpatient [id number] Carla Reynaga 05/04/2019 Active [facility] Urology [facility] Ambulatory Pre-Reg [id number] Christopher Summers 05/04/2019 05/04/2019 [facility] Group [facility]rology [facility] Ambulatory Pre-Reg [id number] Carla Reynaga 05/04/2019 05/04/2019 [facility] Outpatient [id number] -URODYNAMICS, 05/18/2019 Active [facility] Outpatient [id number] Christopher Summers 05/18/2019 05/19/2019 [facility] Ambulatory Pre-Reg [id number] Carla Reynaga 05/25/2019 05/25/2019 [facility] Discharged Inpatient (obs) [id number] ROSALIE MEDINA MD 05/26/2019 05/28/2019 [facility] Outpatient [id number] MED_ASST VISIT 05/27/2019 Active [facility] Urology [facility] Outpatient [id number] Christopher Summers 05/27/2019 05/28/2019 [facility] Outpatient [id number] -URODYNAMICS, 06/01/2019 Active [facility] Urology [facility] [place] Outpatient [id number] Christopher Summers 06/01/2019 06/02/2019 [facility] Outpatient [id number] Carla Reynaga 06/02/2019 Active [facility] Outpatient [id number] Carla Reynaga 06/02/2019 06/03/2019 [facility] Outpatient [id number] -URODYNAMICS, 06/08/2019 [facility] Outpatient [id number] Carla Reynaga 06/14/2019 [facility] Procedures Procedure Code Date Perfomer Comments Source Complex cystometrogram (ie, calibrated electronic equipment); with voiding pressure studies (ie, bladder voiding pressure), any technique [id number] 06/02/2019 [facility] Voiding pressure studies, intra-abdominal (ie, rectal, gastric, intraperitoneal) (List separately in addition to code for primary procedure) 26338 06/02/2019 [facility] Complex uroflowmetry (eg, calibrated electronic equipment) [id number] 06/02/2019 [facility] Electromyography studies (EMG) of anal or urethral sphincter, other than needle, any technique [id number] 06/02/2019 [facility] Computed tomography of brain without radiopaque contrast [id number] 05/27/2019 [facility] Magnetic resonance imaging of brain without contrast [id number] 05/27/2019 [facility] MRI non-joint region of extremity upper wo contrast [id number] 04/29/2019 [facility] X-ray of chest, single view [id number] 02/08/2019 [facility] US abdomen complete [id number] 01/06/2019 [facility] Computed tomography of chest with contrast [id number] 01/05/2019 [facility] INS PICC RS&I 5 YR+ 60084 12/30/2018 [facility] PRQ CARD STENT W/ANGIO 1 VSL 12844 11/06/2018 [facility] CORONARY ARTERY ANGIO S&I 89307 11/06/2018 [facility] Cystoscopy [id number] 08/25/2018 Nasir Hammer [facility] X-ray of chest, two views [id number] 07/31/2018 [facility] Ultrasound, renal [id number] 07/31/2018 [facility] Complex uroflowmetry [id number] 03/30/2018 Nasir Hammer [facility] [place] Catheter replacement [id number] [facility], [place],[facility] Fusion<sup>1</sup> [id number] cervical fusion done on 09/11/[address] Nilo Adames [facility] [place],[facility] Prostate manipulation [id number] [facility], [facility] [place],[facility] Stent replacement [id number] [facility] Assessment and Plan No Data Provided for This Section Plan of Care Plan of Care Date Source Discharge Date 05/28/19 12:59pm Disposition HOME, SELF-CARE Instructions/Education Provided Syncope Prescriptions See Medication Section Additional Instructions/Education f/u with PCP in 1-2 weeks 05/28/2019 [facility] Discharge Date 05/04/19 10:54am Disposition HOME, SELF-CARE Instructions/Education Provided COPD Congestive Heart Failure Prescriptions See Medication Section Additional Instructions/Education f/u with PCP in 1-2 weeks 05/04/2019 [facility] Discharge Date 02/15/19 2:47pm Disposition HOME, SELF-CARE Instructions/Education Provided Atrial Fibrillation Cellulitis Prescriptions See Medication Section Additional Instructions/Education F/U WITH PCP IN 1-2 WEEKS F/U WITH DR HERNANDEZ IN 1-2 WEEKS F/U WITH DR AMEZCUA IN 1-2 WEEKS F/U WITH DR RESENDEZ IN 1-2 WEEKS CONTINUE WITH THICKENED LIQUIDS 02/15/2019 [facility] Discharge Date 01/09/19 1:42pm Disposition HOME, SELF-CARE Instructions/Education Provided Cirrhosis COPD Prescriptions See Medication Section Referrals HAILEE HERNANDEZ MD (Cardiology) Order Date: 7-10 Days Entered Date: 01/09/2019 12:33pm [address] [place] [address] JOHNSON AMEZCUA MD (Internal Medicine) Order Date: 1-2 Weeks Entered Date: 01/09/2019 12:33pm Address: [address] [place] [address] [address] [place] [address] Additional Instructions/Education FOLLOW UP WITH PCP IN 1-2 WEEKS FOLLOW UP WITH NEPHROLOGY IN 1-2 WEEKS FOLLOW UP WITH DR BLACK IN 1-2 WEEKS FOLLOW UP WITH CARDIOLOGY (DR. HERNANDEZ) NEXT WEEK CALL EACH OFFICE TO SCHEDULE AN APPOINTMENT 01/09/2019 [facility] Social History Social History Date Source Social [...] 12/30/2018 10:43am Not Applicable Not Applicable 05/28/2019 [facility] Social History TypeResponse Smoking Status Former smoker; [...] Cessation Counseling No entered on: 07/11/16 07/11/2016 [facility] Social History TypeResponse 04/24/2016 [facility] [place] Family History No Data Provided for This Section Advance Directives Order Name Results Value Date Source Advance Directives Advance Directives Directive Response Recorded Date/Time Does the patient have an advance directive? Yes 05/26/19 11:13pm If yes, is advance directive on file with [facility]? No 05/26/19 11:13pm If not on file with [facility] will patient provide a copy? No 05/26/19 11:13pm Do you have a Directive to Physician? Yes 05/26/19 2:30pm Do you have a Medical Power of Media Intern? Yes 05/26/19 2:30pm Do you have an [...] rights and responsibilities? Yes 05/26/19 2:30pm 05/28/2019 [facility] Advance Directives Advance Directives Directive Response Recorded Date/Time Does the patient have an advance directive? Yes 04/23/19 9:55pm If yes, is advance directive on file with [facility]? No 04/23/19 9:55pm If not on file with [facility] will patient provide a copy? Yes 04/23/19 9:55pm Do you have a Directive to Physician? Yes 04/23/19 6:20pm Do you have a Medical Power of Media Intern? Yes 04/23/19 6:20pm Do you have an [...] rights and responsibilities? Yes 04/23/19 6:20pm 05/04/2019 [facility] Advance Directives Advance Directives Directive Response Recorded Date/Time Does the patient have an advance directive? No 02/09/19 2:20am If yes, is advance directive on file with [facility]? No 02/09/19 2:20am If not on file with [facility] will patient provide a copy? No 02/09/19 2:20am Do you have a Directive to Physician? No 02/08/19 3:53pm Do you have a Medical Power of Media Intern? No 02/08/19 3:53pm Do you have an [...] rights and responsibilities? Yes 02/08/19 3:54pm 02/15/2019 [facility] Advance Directives Advance Directives Directive Response Recorded Date/Time Does the patient have an advance directive? No 01/06/19 12:00am If yes, is advance directive on file with [facility]? No 01/06/19 12:00am If not on file with [facility] will patient provide a copy? No 01/06/19 12:00am Do you have a Directive to Physician? Yes 01/05/19 2:05pm Do you have a Medical Power of Media Intern? Yes 01/05/19 2:05pm Do you have an [...] rights and responsibilities? Yes 01/05/19 2:05pm 01/09/2019 [facility] Functional Status No Data Provided for This Section
[2019-06-11 19:14] LABS: BILIRUBIN,URINE NEGATIVE (NEGATIVE); CLARITY,URINE SL CLOUDY (CLEAR); COLOR,URINE YELLOW (YELLOW); KETONES,URINE NEGATIVE (NEGATIVE); LEUKOCYTE ESTERASE ,URINE NEGATIVE (NEGATIVE); NITRITE,URINE NEGATIVE (NEGATIVE); PROTEIN,URINE DIPSTICK NEGATIVE (NEGATIVE); URINE UROBILINOGEN 0.2 mg/dL (0.2 - 1)
[2019-06-11] MEDS: SODIUM CHLORIDE 0.9% 1000ML 1,000 ML IV SCH (19:17)
[2019-06-11] MEDS: CEFTRIAXONE SOD 1 GM/NS 50 ML 50 ML IV SCH (19:17)
[2019-06-11 19:19] LABS: BACTERIA,URINE FEW /HPF; EPITHELIAL CELLS,URINE FEW /LPF; RBC,URINE 0-5 /HPF (0-5); WBC,URINE (MAN) 0-5 /HPF (0-5)
--- NOTE | 2019-06-11 19:34 | NUR ---
Received report from ER nurse.
[2019-06-11 21:00] VITALS: BP 104/51
--- NOTE | 2019-06-11 21:00 | NUR ---
Patient arrived to floor via stretcher.
[2019-06-11 21:18] VITALS: BP 104/57
[2019-06-12] VITALS (7 sets, daily range): BP systolic 104–120; BP diastolic 57–74
--- NOTE | 2019-06-12 01:02 | NUR ---
Blood drawn for cardiac enz. and sent to lab.
[2019-06-12 01:36] LABS: CREATINE KINASE MB 5.1 ng/mL (0-5.0)
--- NOTE | 2019-06-12 04:28 | NUR ---
Patient with skin tear to left elbow. Cleaned and tegaderm applied.
[2019-06-12 04:29] LABS: BASOPHILS % 0.4 % (0.0-1.0); EOSINOPHILS # (AUTO) 0.1 (0.0-0.4); EOSINOPHILS % 1.6 % (0.0-6.0); HEMATOCRIT 29.6 % (38.2-49.6); LYMPHOCYTES % 11.4 % (18.0-39.1); MEAN CORPUSCULAR HGB CONC 30.4 g/dL (31-35); MEAN CORPUSCULAR VOLUME 85.5 fL (81-99); MONOCYTES # (AUTO) 0.7 (0.2-0.8); MONOCYTES % 8.3 % (4.4-11.3); NEUTROPHILS # (AUTO) 6.6 (2.1-6.9); NEUTROPHILS % 77.7 % (38.7-80.0); PLATELET COUNT 298 x10e3/uL (140-360); RED BLOOD COUNT 3.46 x10e6/uL (4.3-5.7)
[2019-06-12 04:47] LABS: ALBUMIN/GLOBULIN RATIO 1.1 (0.8-2.0); ANION GAP 13.2 mmol/L (8-16); CALCIUM 8.2 mg/dL (8.4-10.2); CREATININE, SERUM 1.9 mg/dL (0.72-1.25); MAGNESIUM 2.2 MG/DL (1.3-2.1); PHOSPHORUS 3.3 MG/DL (2.3-4.7); POTASSIUM 3.2 mmol/L (3.5-5.1)
--- NOTE | 2019-06-12 06:24 | Diagnostic Imaging Report ---
A single frontal view of the chest. HISTORY: Low-grade pressure COMPARISON: Chest radiograph June 11, 2019 DISCUSSION: Portable technique, limits sensitivity of the exam. Tubes/Lines: None Lungs and pleura: Prominence of the pulmonary tissue markings. Mild left basilar atelectasis. No evidence of a consolidative pneumonia or pulmonary alveolar edema. No definite pleural effusion or pneumothorax is identified. Heart and mediastinum: The cardiac silhouette appear(s) unremarkable. The central pulmonary vasculature appears mildly prominent. Bones and soft tissues: Right convex curvature of the thoracic spine. Late subacute to chronic left-sided rib fractures appear healed. IMPRESSION: Mild central pulmonary vascular congestion and interstitial edema. Signed by: Dr. John Mcgee D.O., M.M.M. on 06/12/2019 6:21 AM
--- NOTE | 2019-06-12 07:00 | NUR ---
Pt received resting in bed. Alert and oriented to person alone with periods of confusion. Pt with left AC #18 saline lock. Oriented to staff and surroundings. Encouraged to press call cassidy if help needed. Call cassidy within reach. Will monitor
--- NOTE | 2019-06-12 08:00 | NUR ---
Meds given as ordered. Call cassidy within reach. Pt oriented to staff and surrounding, refusing bed alarm. Will perform frequent orientation. Will monitor
[2019-06-12] MEDS: SODIUM CHLORIDE 0.9% 1000ML 1,000 ML IV SCH ×3 (08:19→18:00)
[2019-06-12] MEDS ORDERED: ALPRAZOLAM 0.5 MG TAB PO SCH (09:30)
[2019-06-12] MEDS ORDERED: HYDROCORTISONE SOD SUCCINATE 100 MG VIAL IV NR (09:30)
[2019-06-12] MEDS ORDERED: DEXTROSE 50% SYRINGE 50 ML IV PRN (09:30)
--- NOTE | 2019-06-12 09:40 | NUR ---
Pt is now alert and oriented x4. Apologized for earlier behavior. Call cassidy within reach. Will monitor
[2019-06-12] MEDS ORDERED: ONDANSETRON HCL INJ 2MG/ML 2ML 2 MG/ML VIAL IV PRN (09:45)
[2019-06-12] MEDS ORDERED: ACETAMINOPHEN 325 MG TAB PO PRN (09:45)
[2019-06-12] MEDS ORDERED: ALBUTEROL/IPRATROPIUM 3 ML NEB NEB PRN (10:15)
[2019-06-12 10:19] LABS: CREATINE KINASE MB 4.6 ng/mL (0-5.0)
[2019-06-12] MEDS: MYBETRIQ PO SCH (10:30)
[2019-06-12] MEDS: METOPROLOL TARTRATE 25 MG TAB PO SCH ×2 (12:30→22:15)
[2019-06-12] MEDS: SUCRALFATE 1 GM TAB PO SCH ×2 (12:30→16:35)
[2019-06-12] MEDS: INSULIN LISPRO 100 UNIT/1 ML 3ML VIAL SQ SCH ×3 (12:31→20:58)
[2019-06-12] MEDS: ALBUTEROL/IPRATROPIUM 3 ML NEB NEB SCH ×2 (13:10→18:45)
[2019-06-12] MEDS: FAMOTIDINE 20 MG TAB PO SCH (16:36)
--- NOTE | 2019-06-12 16:55 | NUR ---
Nutrition Screen Note RD Recommendation for Physician: 1.Continue with Cardiac diet add 1800 ADA diabetic restrictions Plan of Care: RD following, monitoring for tolerance and adequacy Nutrition reason for involvement: Nutrition Risk Trigger Primary Diagnose(s): Pneumonia, Hypotension PMH: : Per pt chart and previous admissions, patient has a history of CAD, type 2 diabetes, hypertension, COPD, CKD 3, atrial fibrillation, hypothyroidism, gout, neuropathy, RLS, chronic back pain, venous stasis, CHF, OA, GERD, anxiety, glaucoma, ankylosing spondylitis, MJ, dermatitis, pneumonia, chronic cellulitis, urinary retention. Ht: 69in Wt: 221lb BMI: 32.63kg/m2 IBW:160lb RD Assessment:(06/12) Chart reviewed. Labs and meds reviewed. Patient is a 73 y/o M with frequent hospital admissions due to CHF, hypotension and COPD. Dietitian has seen pt during prior admission on 04/30/2019. Patient alert but appeared confused and was poor historian during time of visit. Patient has had diet education in the past, no family at bedside today. Noted good appetite and intake. Denied any N/V/D/C and difficulties with chewing/swallowing. Will continue to monitor as needed. Current Diet: Cardiac Diet Malnutrition Evaluation (06/12) The patient does not meet criteria for a specified degree of malnutrition at this time. Will re-evaluate at follow-up as appropriate. Diet Education Needs Assessment: Diet education not indicated. Nutrition Care Level: LOW Signed: Kailyn Peralta, MS, RDN, LD
[2019-06-12] MEDS: CEFTRIAXONE SOD 1 GM/NS 50 ML 50 ML IV SCH (18:00)
--- NOTE | 2019-06-12 19:10 | NUR ---
Pt resting in bed. Handoff given to thread winder automatic RN
--- NOTE | 2019-06-12 19:44 | NUR ---
Received change of shift report from AM nurse. Walking rounds completed.
[2019-06-12] MEDS: ALLOPURINOL 300 MG TAB PO SCH (20:58)
[2019-06-12] MEDS: SERTRALINE HCL 50 MG TAB PO SCH (20:58)
[2019-06-12] MEDS: TAMSULOSIN HCL 0.4 MG CAP PO SCH (20:58)
[2019-06-12] MEDS: ROPINIROLE HCL 0.25 MG TAB PO SCH (20:58)
[2019-06-12] MEDS: PRAMIPEXOLE DIHYDROCHLORIDE 0.25 MG TAB PO SCH (20:58)
[2019-06-12] MEDS: LATANOPROST(OPTH) 2.5 ML BTL OU SCH (20:59)
--- NOTE | 2019-06-13 00:10 | NUR ---
Patient refused MN vital signs.
[2019-06-13] MEDS: ALBUTEROL/IPRATROPIUM 3 ML NEB NEB SCH ×4 (00:20→18:52)
--- NOTE | 2019-06-13 01:08 | NUR ---
Dr Short called to get order for pain med. Patient states he need pain pill for later. Order received. Patient in bed resting quitly with no c/o at this time. Continue monitor.
[2019-06-13 04:00] VITALS: BP 111/61
[2019-06-13] MEDS: SODIUM CHLORIDE 0.9% 1000ML 1,000 ML IV SCH ×2 (04:45→14:32)
[2019-06-13] MEDS: LEVOTHYROXINE SODIUM 50 MCG TAB PO SCH (05:05)
[2019-06-13 06:50] LABS: BASOPHILS % 0.7 % (0.0-1.0); EOSINOPHILS # (AUTO) 0.4 (0.0-0.4); HEMATOCRIT 33.5 % (38.2-49.6); LYMPHOCYTES # (AUTO) 1.2 (1.0-3.2); LYMPHOCYTES % 19.7 % (18.0-39.1); MEAN CORPUSCULAR HGB CONC 29.9 g/dL (31-35); MEAN CORPUSCULAR VOLUME 87.2 fL (81-99); MONOCYTES # (AUTO) 0.7 (0.2-0.8); MONOCYTES % 11.1 % (4.4-11.3); NEUTROPHILS # (AUTO) 3.8 (2.1-6.9); NEUTROPHILS % 62.2 % (38.7-80.0); PLATELET COUNT 302 x10e3/uL (140-360); RED BLOOD COUNT 3.84 x10e6/uL (4.3-5.7); RED CELL DISTRIBUTION WIDTH 14.9 % (11.7-14.4)
[2019-06-13 07:14] LABS: ANION GAP 10.4 mmol/L (8-16); CALCIUM 9.4 mg/dL (8.4-10.2); CREATININE, SERUM 1.4 mg/dL (0.72-1.25); POTASSIUM 3.4 mmol/L (3.5-5.1)
[2019-06-13] MEDS: INSULIN LISPRO 100 UNIT/1 ML 3ML VIAL SQ SCH ×4 (07:30→21:00)
[2019-06-13 07:36] LABS: FREE T4 (FREE THYROXINE) 0.86 ng/dL (0.8-1.8); THYROID STIMULATING HORMONE 3.117 uIU/mL (0.350-4.940)
[2019-06-13 08:41] VITALS: BP 96/56
[2019-06-13] MEDS: SUCRALFATE 1 GM TAB PO SCH ×3 (08:50→16:37)
[2019-06-13] MEDS: ASPIRIN 81 MG CHEW TAB PO SCH (08:51)
[2019-06-13] MEDS: FAMOTIDINE 20 MG TAB PO SCH (08:51)
[2019-06-13] MEDS: FLUDROCORTISONE ACETATE 0.1 MG TAB PO SCH (08:57)
[2019-06-13] MEDS: RIVAROXABAN 15 MG TABLET PO SCH (08:57)
[2019-06-13] MEDS: CLOPIDOGREL BISULFATE 75 MG TAB PO SCH (08:57)
[2019-06-13] MEDS: LIOTHYRONINE SODIUM 5 MCG TAB PO SCH (08:57)
[2019-06-13] MEDS: MYBETRIQ PO SCH (08:58)
[2019-06-13 09:17] VITALS: BP 96/56
[2019-06-13] MEDS: METOPROLOL TARTRATE 25 MG TAB PO SCH ×2 (10:15→22:15)
[2019-06-13 13:00] VITALS: BP 98/60
[2019-06-13] MEDS ORDERED: POTASSIUM CHLORIDE 20 MEQ TAB CR PO ONE (15:30)
[2019-06-13] MEDS ORDERED: NALOXONE HCL INJ 0.4 MG/ML AMP IV ONE (15:30)
[2019-06-13 17:08] VITALS: BP 102/58
--- NOTE | 2019-06-13 19:24 | NUR ---
Received change of shift report from AM nurse. Walking rounds completed.
[2019-06-13] MEDS: ALLOPURINOL 300 MG TAB PO SCH (19:53)
[2019-06-13 20:00] VITALS: BP 122/59
[2019-06-13] MEDS: PRAMIPEXOLE DIHYDROCHLORIDE 0.25 MG TAB PO SCH (20:07)
[2019-06-13] MEDS: LATANOPROST(OPTH) 2.5 ML BTL OU SCH (20:07)
[2019-06-13] MEDS: SERTRALINE HCL 50 MG TAB PO SCH (20:07)
[2019-06-13] MEDS: TAMSULOSIN HCL 0.4 MG CAP PO SCH (20:07)
[2019-06-13] MEDS: ROPINIROLE HCL 0.25 MG TAB PO SCH (20:07)
[2019-06-13] MEDS: CEFTRIAXONE SOD 1 GM/NS 50 ML 50 ML IV SCH (22:00)
[2019-06-14] VITALS (10 sets, daily range): BP systolic 91–111; BP diastolic 52–67
[2019-06-14] MEDS: ALBUTEROL/IPRATROPIUM 3 ML NEB NEB SCH ×4 (00:02→19:20)
--- NOTE | 2019-06-14 03:00 | NUR ---
Spoke to Darrel regarding patient increased confusion. Asked for ABG. No ABG's ordered. 's informed for patient increase confusion. No new orders.
--- NOTE | 2019-06-14 05:00 | NUR ---
Patient pulled out IV and removed Tele box. Restarted IV to right f/a x1 stick. Patient tolerated well.
[2019-06-14] MEDS: LEVOTHYROXINE SODIUM 50 MCG TAB PO SCH (06:00)
--- NOTE | 2019-06-14 07:00 | NUR ---
PATIENT ALERT TO SELF AND PLACE- IN STABLE CONDITION WITH NO S/S OF RESPIRATORY DISTRESS. NO PAIN VOICED. TELEMETRY APPLIED. O2 APPLIED. BED ALARM ON. CALL LIGHT IS WITHIN REACH, PATIENT INSTRUCTED TO CALL FOR ASSISTANCE NEEDED.
[2019-06-14 07:05] LABS: ALANINE AMINOTRANSFERASE 8 IU/L (0-55); ALBUMIN 2.8 g/dL (3.5-5.0); ALBUMIN/GLOBULIN RATIO 1.1 (0.8-2.0); ALKALINE PHOSPHATASE 73 IU/L (40-150); ANION GAP 9.1 mmol/L (8-16); BLOOD UREA NITROGEN 48 mg/dL (7-26); BUN/CREATININE RATIO 42 (6-25); CALCIUM 9.2 mg/dL (8.4-10.2); CARBON DIOXIDE 34 mmol/L (22-29); CHLORIDE 98 mmol/L (98-107); CREATININE, SERUM 1.14 mg/dL (0.72-1.25); EST GLOMERULAR FILTRATION RATE > 60 ML/MIN (60-); GLUCOSE 99 mg/dL (74-118); PHOSPHORUS 2.7 MG/DL (2.3-4.7); POTASSIUM 3.1 mmol/L (3.5-5.1); SODIUM 138 mmol/L (136-145)
[2019-06-14] MEDS: INSULIN LISPRO 100 UNIT/1 ML 3ML VIAL SQ SCH ×4 (07:30→21:00)
[2019-06-14] MEDS: MYBETRIQ PO SCH (08:43)
[2019-06-14] MEDS: ASPIRIN 81 MG CHEW TAB PO SCH (08:43)
[2019-06-14] MEDS: SUCRALFATE 1 GM TAB PO SCH ×3 (08:43→15:53)
[2019-06-14] MEDS: CLOPIDOGREL BISULFATE 75 MG TAB PO SCH (08:43)
[2019-06-14] MEDS: LIOTHYRONINE SODIUM 5 MCG TAB PO SCH (08:43)
[2019-06-14] MEDS: PANTOPRAZOLE SOD 40 MG TABEC PO SCH (08:43)
[2019-06-14] MEDS: FLUDROCORTISONE ACETATE 0.1 MG TAB PO SCH (08:43)
[2019-06-14] MEDS: RIVAROXABAN 15 MG TABLET PO SCH (08:43)
[2019-06-14] MEDS: METOPROLOL TARTRATE 25 MG TAB PO SCH ×2 (09:35→22:15)
--- NOTE | 2019-06-14 11:25 | NUR ---
EDUCATED ABOUT IMM, SIGNED, FILED IN CHART, WITH COPY LEFT WITH FAMILY AT BEDSIDE.
[2019-06-14] MEDS ORDERED: POTASSIUM CHLORIDE 10MEQ EA PO ONE (12:15)
[2019-06-14] MEDS: ACETAMINOPHEN/CODEINE 300MG - 30MG TAB PO PRN ×2 (13:03→21:50)
[2019-06-14] MEDS: CEFTRIAXONE SOD 1 GM/NS 50 ML 50 ML IV SCH (17:13)
--- NOTE | 2019-06-14 19:28 | NUR ---
PATIENT IN STABLE CONDITION WITH NO S/S OF RESPIRATORY DISTRESS. NO PAIN VOICED. TELEMETRY APPLIED. 02 APPLIED. PRESENT IN ROOM. CALL LIGHT IS WITHIN REACH, PATIENT INSTRUCTED TO CALL FOR ASSISTANCE NEEDED. BEDSIDE REPORT GIVEN TO ONCOMING NURSE.
[2019-06-14] MEDS: ALLOPURINOL 300 MG TAB PO SCH (21:49)
[2019-06-14] MEDS: TAMSULOSIN HCL 0.4 MG CAP PO SCH (21:49)
[2019-06-14] MEDS: ROPINIROLE HCL 0.25 MG TAB PO SCH (21:49)
[2019-06-14] MEDS: LATANOPROST(OPTH) 2.5 ML BTL OU SCH (21:49)
[2019-06-14] MEDS: PRAMIPEXOLE DIHYDROCHLORIDE 0.25 MG TAB PO SCH (21:49)
[2019-06-14] MEDS: SERTRALINE HCL 50 MG TAB PO SCH (21:49)
[2019-06-15] VITALS (8 sets, daily range): BP systolic 97–113; BP diastolic 55–61
[2019-06-15] MEDS: ALBUTEROL/IPRATROPIUM 3 ML NEB NEB SCH ×4 (01:02→19:00)
[2019-06-15 05:14] LABS: CALCIUM 9.4 mg/dL (8.4-10.2); CREATININE, SERUM 1.27 mg/dL (0.72-1.25); PHOSPHORUS 2.7 MG/DL (2.3-4.7)
[2019-06-15] MEDS: LEVOTHYROXINE SODIUM 50 MCG TAB PO SCH (05:51)
[2019-06-15 07:03] LABS: BASOPHILS % 0.7 % (0.0-1.0); EOSINOPHILS # (AUTO) 0.2 (0.0-0.4); EOSINOPHILS % 5.6 % (0.0-6.0); HEMATOCRIT 30.7 % (38.2-49.6); HEMOGLOBIN 9.1 g/dL (14.0-18.0); LYMPHOCYTES # (AUTO) 0.9 (1.0-3.2); LYMPHOCYTES % 20.8 % (18.0-39.1); MEAN CORPUSCULAR HEMOGLOBIN 25.9 pg (28-32); MEAN CORPUSCULAR HGB CONC 29.6 g/dL (31-35); MEAN CORPUSCULAR VOLUME 87.5 fL (81-99); MONOCYTES # (AUTO) 0.4 (0.2-0.8); MONOCYTES % 9.5 % (4.4-11.3); NEUTROPHILS # (AUTO) 2.7 (2.1-6.9); NEUTROPHILS % 62.9 % (38.7-80.0); PLATELET COUNT 274 x10e3/uL (140-360); RED BLOOD COUNT 3.51 x10e6/uL (4.3-5.7); RED CELL DISTRIBUTION WIDTH 14.8 % (11.7-14.4)
[2019-06-15] MEDS: INSULIN LISPRO 100 UNIT/1 ML 3ML VIAL SQ SCH ×4 (07:30→20:16)
[2019-06-15] MEDS: DIGOXIN 0.125 MG TAB PO SCH (08:01)
[2019-06-15] MEDS: MYBETRIQ PO SCH (08:02)
[2019-06-15] MEDS: FLUDROCORTISONE ACETATE 0.1 MG TAB PO SCH (08:02)
[2019-06-15] MEDS: PANTOPRAZOLE SOD 40 MG TABEC PO SCH (08:02)
[2019-06-15] MEDS: SUCRALFATE 1 GM TAB PO SCH ×3 (08:02→16:07)
[2019-06-15] MEDS: CLOPIDOGREL BISULFATE 75 MG TAB PO SCH (08:02)
[2019-06-15] MEDS: LIOTHYRONINE SODIUM 5 MCG TAB PO SCH (08:02)
[2019-06-15] MEDS: ASPIRIN 81 MG CHEW TAB PO SCH (08:02)
[2019-06-15] MEDS: RIVAROXABAN 15 MG TABLET PO SCH (08:02)
--- NOTE | 2019-06-15 08:04 | NUR ---
PATIENT IS SITTING UP ON THE SIDE OF THE BED FOR BREAKFAST- BED ALARM ON. PATIENT IN STABLE CONDITION WITH NO S/S OF RESPIRATORY DISTRESS. NO PAIN VOICED. TELEMETRY AND O2 APPLIED. CALL LIGHT IS WITHIN REACH, PATIENT INSTRUCTED TO CALL FOR ASSISTANCE NEEDED.
[2019-06-15] MEDS: METOPROLOL TARTRATE 25 MG TAB PO SCH ×2 (10:15→20:11)
--- NOTE | 2019-06-15 10:18 | NUR ---
SOM AND N.P. REGARDING PATIENT'S POTASSIUM OF 3.0 AND SPEECH THERAPY RECOMMENDATION OF SPEECH BEDSIDE SWALLOW EVAL- RECEIVED ORDERS FOR 60MEQ OF POTASSIUM AND SPEECH BEDSIDE SWALLOW.
[2019-06-15] MEDS ORDERED: POTASSIUM CHLORIDE 20 MEQ TAB CR PO ONE (10:30)
[2019-06-15] MEDS: CEFTRIAXONE SOD 1 GM/NS 50 ML 50 ML IV SCH (17:00)
--- NOTE | 2019-06-15 19:00 | NUR ---
patient received awake, alert, sitting up on side of bed. no c/o pain noted. respirations even and unlabored. /4l/nc in use. patient remains on 1.2 fr day. patient verbalizes understanding of this. pm assessment complete. patient instructed to call for assistance when needed.
--- NOTE | 2019-06-15 19:20 | NUR ---
PATIENT IS SITTING ON THE SIDE OF THE BED- WALKER PRESENT NEAR PATIENT/BEDSIDE. PATIENT IN STABLE CONDITION WITH NO S/S OF RESPIRATORY DISTRESS. NO PAIN VOICED. TELEMETRY APPLIED; O2 APPLIED. CALL LIGHT IS WITHIN REACH, PATIENT INSTRUCTED TO CALL FOR ASSISTANCE NEEDED. BEDSIDE REPORT GIVEN TO ONCOMING NURSE.
[2019-06-15] MEDS: PRAMIPEXOLE DIHYDROCHLORIDE 0.25 MG TAB PO SCH (20:11)
[2019-06-15] MEDS: LATANOPROST(OPTH) 2.5 ML BTL OU SCH (20:11)
[2019-06-15] MEDS: SERTRALINE HCL 50 MG TAB PO SCH (20:11)
[2019-06-15] MEDS: ROPINIROLE HCL 0.25 MG TAB PO SCH (20:11)
[2019-06-15] MEDS: TAMSULOSIN HCL 0.4 MG CAP PO SCH (20:11)
[2019-06-15] MEDS: ALLOPURINOL 300 MG TAB PO SCH (20:11)
--- NOTE | 2019-06-15 23:51 | Consultation ---
DATE OF CONSULTATION: 06/15/2019 Renal consultation. REASON FOR CONSULTATION: Acute kidney injury on chronic kidney disease. HISTORY OF PRESENT ILLNESS: A 73-year-old male with a history of congestive heart failure and stage 3 chronic kidney disease, was brought to the patient's [facility] for dizziness and weakness. The patient was taking Bumex and metolazone and despite weaning himself, became dizzy and hypotensive and was brought to the hospital. The patient was found to have acute kidney injury, was started on IV fluids and his kidney function returned to baseline. Nephrology consultation was called for followup. REVIEW OF SYSTEMS: As above. All other systems negative. PAST MEDICAL HISTORY: 1. Chronic kidney disease stage 3. 2. Coronary artery disease. 3. Atrial fibrillation. 4. Congestive heart failure. 5. Chronic venous insufficiency. 6. Hypertension. 7. Dyslipidemia. 8. Chronic obstructive pulmonary disease. 9. Diabetes type 2. 10. Gout. 11. History of urinary retention. 12. Ankylosing spondylitis. PAST SURGICAL HISTORY: 1. Cardiac stenting x4. 2. Neck fusion. 3. Prostate laser surgery. 4. History of pain pump. 5. Cataract surgery. 6. Vein ablation. SOCIAL HISTORY: No alcohol. Former smoker. No IV drugs. FAMILY HISTORY: Positive for hypertension. ALLERGIES: NO KNOWN DRUG ALLERGIES. CURRENT MEDICATIONS: See list includes Florinef, ceftriaxone, and Requip. PHYSICAL EXAMINATION: VITAL SIGNS: Blood pressure 99/57 to 113/57, pulse 76, respiratory rate 19, temperature 96.8. General: No apparent distress. HEENT: Oropharynx clear. No scleral icterus. No peripheral edema. NECK: Supple. No elevation in jugular venous pressure. No lymphadenopathy. CHEST: Decreased breath sounds at bases anteriorly bilaterally. CARDIOVASCULAR: Regular rhythm. No murmurs. ABDOMEN: Soft. Positive bowel sounds. No tenderness. No rebound. EXTREMITIES: 1+ edema. LABORATORY DATA: Sodium 136, potassium 3, chloride 95, CO2 of 35, BUN 37, creatinine 1.27, calcium 9.4, phosphorus 2.7, magnesium 2. White count 4.3, hemoglobin 9.1, hematocrit 30.7, and platelets 274. ASSESSMENT AND PLAN: 1. Acute kidney injury on stage 3 chronic kidney disease secondary to volume depletion. The patient is much improved. We will need to discontinue metolazone at discharge. 2. Congestive heart failure, compensated. We will discontinue IV fluids. 3. Hypotension secondary to above. We will discontinue Florinef. 4. Hypokalemia. We will replace. 5. Pneumonia, on ceftriaxone per Dr. Ross. MD WES Franco/MODL /[id number]
[2019-06-16] VITALS: BP 102/52
[2019-06-16] MEDS: ALBUTEROL/IPRATROPIUM 3 ML NEB NEB SCH ×3 (00:10→13:05)
[2019-06-16 02:49] LABS: BASOPHILS % 0.8 % (0.0-1.0); EOSINOPHILS # (AUTO) 0.3 (0.0-0.4); EOSINOPHILS % 6.3 % (0.0-6.0); HEMATOCRIT 29.4 % (38.2-49.6); HEMOGLOBIN 8.5 g/dL (14.0-18.0); LYMPHOCYTES # (AUTO) 0.9 (1.0-3.2); LYMPHOCYTES % 17.9 % (18.0-39.1); MEAN CORPUSCULAR HEMOGLOBIN 25.5 pg (28-32); MEAN CORPUSCULAR HGB CONC 28.9 g/dL (31-35); MEAN CORPUSCULAR VOLUME 88.3 fL (81-99); MONOCYTES # (AUTO) 0.4 (0.2-0.8); NEUTROPHILS # (AUTO) 3.2 (2.1-6.9); NEUTROPHILS % 65.8 % (38.7-80.0); PLATELET COUNT 243 x10e3/uL (140-360); RED BLOOD COUNT 3.33 x10e6/uL (4.3-5.7); RED CELL DISTRIBUTION WIDTH 14.9 % (11.7-14.4)
--- NOTE | 2019-06-16 03:00 | NUR ---
ordered 0300 labs drawn at this time and taken to lab.
[2019-06-16 03:04] LABS: MAGNESIUM 1.8 MG/DL (1.3-2.1)
[2019-06-16 03:31] LABS: ANION GAP 8.5 mmol/L (8-16); CALCIUM 9.2 mg/dL (8.4-10.2); CREATININE, SERUM 1.36 mg/dL (0.72-1.25); POTASSIUM 3.5 mmol/L (3.5-5.1)
[2019-06-16 04:00] VITALS: BP 97/63
--- NOTE | 2019-06-16 04:31 | Consultation ---
DATE OF CONSULTATION: 06/15/2019 Pulmonary Medicine Consult REFERRING PHYSICIAN: Dr. Short. REASON FOR REFERRAL: Shortness of breath. PRIMARY CARE PHYSICIAN: Dr. Christopher Summers. HISTORY OF PRESENT ILLNESS: Mr. Sharma is a pleasant 73-year-old gentleman with shortness of breath. The patient was admitted to [facility] earlier in May with combine COPD exacerbation as well as chronic diastolic heart failure and decondition. The patient was discharged, but he had another fall and he was [facility] He was diagnosed with multiple rib fractures, but was eventually discharged. He had injured his arms widespread, but he was able to prevent himself from hitting his head by catching himself. The patient presented to [facility] on June 11, 2019 with weakness. The patient with decreasing functionality. He is not able to walk as far as he used to. He had therapy ordered but at home and not at facility. The patient with slight increased phlegm, but recently now it is not a lot of phlegm. He remains on home oxygen without difficulty. The patient at this time had a chest x-ray demonstrating atelectasis and rib fractures, but no definite pneumonia, unconsolidated. PAST MEDICAL HISTORY: COPD; asthma; CHF; LVEF of 64%; atrial fibrillation; CKD, stage 3 to 4; hypertension; diabetes; hypothyroid; BPH; severe PLMS; REM behavior disorder sleep; Parkinson's syndrome; and ankylosing spondylitis. MEDICATIONS: Medication list reviewed per the chart. ALLERGIES: NO KNOWN DRUG ALLERGIES. SOCIAL HISTORY: No smoking. No drinking. No drugs. He lives at home with his . Uses walker often. FAMILY HISTORY: Noncontributory. REVIEW OF SYSTEMS: GENERAL: No weight changes. OPHTHALMOLOGIC: No floaters. ENT: There are no facial lacerations. ENDOCRINE: No known Bryan's. PULMONARY: No hemoptysis. CARDIAC: No heart attacks recently. GI: No constipation. : No blood in urine, but does have BPH kind of symptoms. DERMATOLOGIC: No rash. NEUROLOGIC: No seizures. PHYSICAL EXAMINATION: VITAL SIGNS: Afebrile. Vital signs noted and reviewed per the chart record. GENERAL: In no acute distress, alert and calm. HEENT: Normocephalic and atraumatic. NECK: Supple. Throat midline. LUNGS: Bilateral air entry, decreased breath sounds moderately, few rhonchi. CARDIOVASCULAR: S1 and S2. No murmurs, rubs, or gallops. ABDOMINAL: Soft and nontender. EXTREMITIES: No clubbing. No cyanosis. There is 1+ to 2+ leg edema. INTEGUMENT: No rash, few bruises, some old excoriations that seem to be healing well. LABORATORY DATA: Potassium 3.0, BUN 37, and creatinine 1.27. His creatinine has improved from 2.92 on admit. Bicarbonate 35. White count 4.3, hematocrit 31, and platelets 274. INR 1.54. IMPRESSION AND PLAN: 1. Chronic obstructive pulmonary disease. 2. Deconditioning. 3. Multiple falls, significant risk. 4. Severe restless legs syndrome. 5. REM sleep behavior disorder. 6. Excessive daytime somnolence to movement disorder. 7. Benign prostatic hyperplasia. 8. Parkinson disease. 9. Diastolic cardiac dysfunction. 10. Acute kidney failure, probably dehydrated line. 11. Ankylosing spondylitis. 12. Chronic kidney disease, stage 3 to 4. 13. Hypertension. 14. Atrial fibrillation. 15. Hypertension, diabetes, hypothyroid state. I agree with hydration as per Nephrology. The patient needs reconditioning and mobilization and an aggressive therapy program for his shortness of breath. For the COPD and a small asthmatic component. Continue bronchodilators. Avoid prednisone if not needed, so as soon I interact with his neurologic condition. Diuretics as per Nephrology. I counseled the patient that he should consider wearing a helmet and other protection due to his recurrent fall risk. We will see how he performs and we will consider if we have to escalate pulmonary therapy. Thank you very much, Dr. Short and Dr. Summers for allowing me a chance to participate in care of Mr. Sharma. Please call for questions. MD BREANNA Paulino/STEVE /[id number]
[2019-06-16] MEDS: LEVOTHYROXINE SODIUM 50 MCG TAB PO SCH (05:14)
[2019-06-16 05:43] LABS: BASOPHILS % 0.6 % (0.0-1.0); EOSINOPHILS # (AUTO) 0.3 (0.0-0.4); EOSINOPHILS % 6.4 % (0.0-6.0); HEMATOCRIT 31.3 % (38.2-49.6); HEMOGLOBIN 9.1 g/dL (14.0-18.0); LYMPHOCYTES # (AUTO) 0.8 (1.0-3.2); MEAN CORPUSCULAR HEMOGLOBIN 25.6 pg (28-32); MEAN CORPUSCULAR HGB CONC 29.1 g/dL (31-35); MEAN CORPUSCULAR VOLUME 88.2 fL (81-99); MONOCYTES # (AUTO) 0.5 (0.2-0.8); MONOCYTES % 9.8 % (4.4-11.3); NEUTROPHILS # (AUTO) 3.2 (2.1-6.9); PLATELET COUNT 252 x10e3/uL (140-360); RED BLOOD COUNT 3.55 x10e6/uL (4.3-5.7); RED CELL DISTRIBUTION WIDTH 14.7 % (11.7-14.4)
[2019-06-16 06:05] LABS: ANION GAP 10.7 mmol/L (8-16); CALCIUM 9.5 mg/dL (8.4-10.2); CREATININE, SERUM 1.25 mg/dL (0.72-1.25); MAGNESIUM 1.9 MG/DL (1.3-2.1); POTASSIUM 3.7 mmol/L (3.5-5.1)
--- NOTE | 2019-06-16 07:00 | NUR ---
Pt received resting in bed. Alert and oriented to x4. Pt with right forearm saline lock. Oriented to staff and surroundings. Encouraged to press call cassidy if help needed. Call cassidy within reach. Will monitor
[2019-06-16] MEDS: INSULIN LISPRO 100 UNIT/1 ML 3ML VIAL SQ SCH ×2 (07:30→12:20)
[2019-06-16 08:24] VITALS: BP 111/56
[2019-06-16 08:30] VITALS: BP 111/56
[2019-06-16] MEDS: SUCRALFATE 1 GM TAB PO SCH ×2 (08:43→12:20)
[2019-06-16] MEDS: PANTOPRAZOLE SOD 40 MG TABEC PO SCH (08:43)
[2019-06-16] MEDS: LIOTHYRONINE SODIUM 5 MCG TAB PO SCH (08:43)
[2019-06-16] MEDS: ASPIRIN 81 MG CHEW TAB PO SCH (08:43)
[2019-06-16] MEDS: DIGOXIN 0.125 MG TAB PO SCH (08:44)
[2019-06-16] MEDS: CLOPIDOGREL BISULFATE 75 MG TAB PO SCH (08:44)
[2019-06-16] MEDS: RIVAROXABAN 15 MG TABLET PO SCH (08:44)
[2019-06-16] MEDS: METOPROLOL TARTRATE 25 MG TAB PO SCH (08:44)
[2019-06-16] MEDS: MYBETRIQ PO SCH (08:45)
--- NOTE | 2019-06-16 08:45 | NUR ---
All meds given as ordered. Emotional support given. Call cassidy within reach. Will monitor
--- NOTE | 2019-06-16 09:03 | Diagnostic Imaging Report ---
Chest, 1 view, 06/16/2019. History: Atelectasis. Comparison: 06/12/2019. Findings: The cardiomediastinal silhouette and pulmonary vasculature are within normal limits for a portable exam. Linear opacities are present in the lung bases. There is no focal consolidation or pleural effusion. There are no acute osseous or soft tissue abnormalities. Impression: Bibasilar atelectasis. Signed by: Jama Pettit on 06/16/2019 8:59 AM
--- NOTE | 2019-06-16 11:24 | NUR ---
EDUCATED ABOUT IMM SIGNED FILED IN CHART AND LEFT COPY WITH PT BEDSIDE WITH CARD FOR ANY FURTHER QUESTIONS
[2019-06-16 11:49] VITALS: BP 113/53
[2019-06-16] MEDS ORDERED: DIGOXIN125 MCG PO (15:30)
[2019-06-16] MEDS ORDERED: ONDANSETRON HCL 4 MG ORAL DISINTEGRATING TAB PO PRN (15:45)
--- NOTE | 2019-06-16 16:16 | Diagnostic Imaging Report ---
Modified barium swallow, 06/16/2019. History: Aspiration. Fluoro time: 2.3 min. Dose: 17.3 mGy (KARIME) Technique: Fluoroscopy was performed by cardiology technician. A radiologist was not present for exam. Fluoroscopic observation and imaging of the oral cavity, oropharynx, and hypopharynx was performed in the lateral projection during swallowing of liquids and solids, administered by speech pathology. See speech pathologist report for findings. Signed by: Jama Pettit on 06/16/2019 4:12 PM
[2019-06-16 16:30] VITALS: BP 111/59
--- NOTE | 2019-06-16 16:55 | NUR ---
Pt and given discharge instructions regarding meds, diet, activities, s/s to report, and follow up with MDs. Both verbalized understanding of teaching. will go home to bring Oxygen tank
--- NOTE | 2019-06-16 17:00 | NUR ---
Spoke with pt and his Sallie at bedside regarding home health. States pt was previously with [facility], but they have changed home health since their insurance changed. Neither can remember the name of the company. states she has information at home and can call CM once they get home. Gave pt's CM's business card. Will send home health referral once CM hears back from pt or his .
--- NOTE | 2019-06-16 17:47 | NUR ---
Pt left with all belongings. brought Oxygen tank
--- NOTE | 2019-06-16 18:16 | NUR ---
Received phone call from pt's Sallie Sharma who states he is on service with [facility]. / . Home health order and clinicals were faxed.
--- NOTE | 2019-06-16 18:36 | Consultation ---
DATE OF CONSULTATION: 06/16/2019 Cardiology Consultation REQUESTING PHYSICIAN: Kavon Short MD. REASON FOR CONSULTATION: Management of cardiac conditions. HISTORY OF PRESENT ILLNESS: This is a 73-year-old man with history of coronary artery disease with recent stent, atrial fibrillation, chronic diastolic heart failure, hypertension, hyperlipidemia, cirrhosis by CT imaging, and chronic kidney disease, who is well-known to our service, who presents with complaints of hypotension. The patient was recently discharged from the hospital earlier this month. The patient and his family reports indicate that he was lethargic after his discharge. He saw his primary care physician and film historian last week and blood was drawn for evaluation. He was subsequently called and told his renal function had worsened, and instructed to stop his diuretics. Despite this, he was hypotensive with blood pressures in the 80s/40s and progressively more altered per family description. He was therefore instructed to present to the ER for further evaluation. He was found to have acute kidney injury with creatinine elevation at 2.9. He was placed on IV fluid hydration and admitted for further care. Cardiology is consulted for evaluation of his cardiac conditions. The patient denies any cardiac complaints at this time. He denies chest pain, palpitations, orthopnea, or PND. He does have chronic shortness of breath and lower extremity edema, which are unchanged. REVIEW OF SYSTEMS: Negative except as per HPI. PAST MEDICAL HISTORY: 1. Chronic diastolic heart failure. 2. Coronary artery disease, status post recent stent. 3. Atrial fibrillation. 4. Hypertension. 5. Hyperlipidemia. 6. Cirrhosis by CT imaging. 7. Chronic kidney disease. 8. Diabetes mellitus. 9. COPD. PAST SURGICAL HISTORY: PCI. ALLERGIES: NO KNOWN DRUG ALLERGIES. MEDICATIONS: Please see medication list. SOCIAL HISTORY: No tobacco, alcohol, or illicit drugs. FAMILY HISTORY: Noncontributory to current illness. PHYSICAL EXAMINATION: VITAL SIGNS: Temperature 96.6 degrees, pulse 89, respiratory rate 18, blood pressure 111/59, and oxygen saturation 98% on 5 L nasal cannula. GENERAL: Well-developed, well-nourished man, in no acute distress, elderly, awake and alert. HEENT: Normocephalic, atraumatic. Pupils equal. No scleral icterus. NECK: Supple. No thyromegaly or cervical lymphadenopathy. No carotid bruits. LUNGS: Clear to auscultation bilaterally. No wheeze or crackles. CARDIOVASCULAR: Normal rate. Irregularly irregular. Normal S1, S2. ABDOMEN: Soft and nontender. EXTREMITIES: Trace edema. LABORATORY DATA: Sodium 140, potassium 3.7, chloride 97, CO2 36, BUN 32, creatinine 1.25. BNP 603.7. WBC 4.82, hemoglobin 9.1, hematocrit 31.3, platelets 252. IMPRESSION: 1. Acute kidney injury on chronic kidney disease. 2. Chronic diastolic heart failure. 3. Coronary artery disease, status post recent stent. 4. Atrial fibrillation. 5. Hypertension. 6. Hyperlipidemia. 7. Diabetes mellitus. 8. Chronic obstructive pulmonary disease. RECOMMENDATIONS: Monitor volume status closely. Defer decision regarding diuretics to Nephrology. The patient had recent echocardiogram at the end of March with preserved LV systolic function. No valve abnormalities were appreciated. Echocardiogram does not need to be repeated at this time. Continue current cardiac medications including dual anti-platelet therapy. Given his unstable renal function, we would recommend discontinuation of digoxin. Continue current cardiac medications otherwise. Thank you for this consult. We will continue to follow. Zenaida Randolph MD ABS/MODL /[id number]
--- NOTE | 2019-06-16 21:36 | NUR ---
Pulmonary Medicine DATE OF ENCOUNTER: 06/16/2019 SUBJECTIVE: Patient breathing mildly better. 4 L/min by nasal cannula. He walked. He had 2 bowel movements. REVIEW OF SYSTEMS: No bleeding, no chest pain PHYSICAL EXAMINATION: VITAL SIGNS: Vital signs noted and reviewed per the chart record. GENERAL: no acute distress, alert and calm. HEENT: Normocephalic and atraumatic. NECK: Supple. Throat midline. LUNGS: Bilateral air entry, decreased breath sounds moderately, few rhonchi. CARDIOVASCULAR: S1 and S2. No murmurs, rubs, or gallops. ABDOMINAL: Soft and nontender. EXTREMITIES: No clubbing. No cyanosis. There is 1+ to 2+ leg edema. INTEGUMENT: No rash, few bruises, some old excoriations healing well. LABORATORY DATA: 3.7 potassium, 32 BUN, 1.25 creatinine. 4.8 white count, 31 hematocrit, 252 platelets. INR 1.54 IMPRESSION AND PLAN: 1. Chronic obstructive pulmonary disease. 2. Deconditioning. 3. Multiple falls, significant risk. 4. Severe restless legs syndrome. 5. REM sleep behavior disorder. 6. Excessive daytime somnolence Likely predominantly secondary to movement disorder. 7. Benign prostatic hyperplasia. 8. Parkinson disease. 9. Diastolic cardiac dysfunction. 10. Acute kidney failure, probably dehydrated line. 11. Ankylosing spondylitis. 12. Chronic kidney disease, stage 3 to 4. 13. Hypertension. 14. Atrial fibrillation. 15. Hypertension, diabetes, hypothyroid state. Continue hydration per neurology Continue reconditioning Aggressive therapy program Continue bronchodilators Diuretics can be restarted when nephrology okay Consider wearing helmet and other protective gears to protect him from falling Thank you very much, Dr. Short and Dr. Summers for allowing me a chance to participate in care of Mr. Sharma. Please call for questions.
--- NOTE | 2019-06-17 09:29 | NUR ---
CM called and spoke to Sasha with [facility], who states they did receive order/clinical for pt yesterday. Will put him on schedule to be seen today or tomorrow.
--- NOTE | 2019-06-18 04:13 | Discharge Summary ---
ADMISSION DIAGNOSES: Hypotension, autonomic dysreflexia versus adrenal insufficiency, type 2 diabetes complicated by chronic diastolic congestive heart failure and chronic kidney disease 3; chronic kidney disease 3; atrial fibrillation, hypothyroidism, gout, glaucoma, anxiety, obstructive sleep apnea, chronic diastolic congestive heart failure, and venous stasis of the lower extremities. DISCHARGE DIAGNOSES: Hypotension, autonomic dysreflexia versus adrenal insufficiency, type 2 diabetes complicated by chronic diastolic congestive heart failure and chronic kidney disease 3; chronic kidney disease 3; atrial fibrillation, hypothyroidism, gout, glaucoma, anxiety, obstructive sleep apnea, chronic diastolic congestive heart failure, and venous stasis of the lower extremities, rule out adrenal insufficiency. HISTORY: The patient has a history of CAD with stents, type 2 diabetes, COPD, CKD 3, atrial fibrillation, hypothyroidism, gout, neuropathy, RLS, chronic back pain, venous stasis, osteoarthritis, GERD, anxiety, glaucoma, obstructive sleep apnea, and chronic diastolic CHF. SURGICAL HISTORY: Prostate surgery, vein ablation, and Dilaudid pain pump. FAMILY HISTORY: The patient's dad had a stroke. SOCIAL HISTORY: Noncontributory. HOSPITAL COURSE: 73-year-old male complains of dizziness for 3 weeks. He follows at time and was sent from his PCPs office yesterday due to hypotension, despite midodrine use. His equipment hire manager even held his diuretics, but his blood pressure dropped even more. His neuro workup was negative just two weeks prior to admission. On admission, the patient was given a dose of Solu-Cortef and started on Florinef daily. Cortisol, aldosterone, and renin were checked, but take many days to come back. His diuretics were held as were any blood pressure medicines besides metoprolol for the atrial fibrillation. EKG showed atrial fibrillation at a rate of 92. Echo from 04/24/2019 showed an EF of 55% to 60%. Blood cultures were negative. On admission, GFR was 21 and trended up to 56 on day of discharge. On admission, the blood pressure was in the 80s and it was in the 110 systolic before discharge. The patient will discharge home off diuretics and blood pressure medicines beside the metoprolol. The patient and understand discharge instructions and agrees to plan. Vital signs stable, the patient is afebrile. Dictated by Tamela Young, MADELAINE MD MARKUS Ladd/STEVE /[id number]
== END 2019-06-16 17:48 | disposition home or self-care (01) | DRG 314 ==
LOC: ER 14:51 → ERHOLD 17:49 → MED/SURG3 20:10
PROVIDERS: ADMIT Internal Medicine; ATTEND Internal Medicine
DX: I95.0 Idiopathic hypotension (principal); J15.9 Unspecified bacterial pneumonia; N17.9 Acute kidney failure, unspecified; I13.0 Hypertensive heart and chronic kidney disease with heart failure and stage 1 through stage 4 chronic kidney disease, or unspecified chronic kidney disease; I50.32 Chronic diastolic (congestive) heart failure; G47.33 Obstructive sleep apnea (adult) (pediatric); F41.9 Anxiety disorder, unspecified; N18.3 Chronic kidney disease, stage 3 (moderate); E11.22 Type 2 diabetes mellitus with diabetic chronic kidney disease; Z79.4 Long term (current) use of insulin; K21.9 Gastro-esophageal reflux disease without esophagitis; H40.9 Unspecified glaucoma; I87.2 Venous insufficiency (chronic) (peripheral); G89.29 Other chronic pain; M54.9 Dorsalgia, unspecified; E03.9 Hypothyroidism, unspecified; E11.40 Type 2 diabetes mellitus with diabetic neuropathy, unspecified; I25.10 Atherosclerotic heart disease of native coronary artery without angina pectoris; Z95.5 Presence of coronary angioplasty implant and graft; M10.9 Gout, unspecified; I48.91 Unspecified atrial fibrillation; Z79.01 Long term (current) use of anticoagulants; G90.4 Autonomic dysreflexia; E87.6 Hypokalemia; Z91.81 History of falling; G20 Parkinson's disease; G25.81 Restless legs syndrome; G47.52 REM sleep behavior disorder; K74.60 Unspecified cirrhosis of liver
CPT/HCPCS: 36415; 71045; 74230; 80048; 80053; 80162; 81001; 82088; 82533; 82550; 82553; 82948; 83036; 83735; 83880; 84100; 84244; 84439; 84443; 84484; 85025; 85610; 85730; 87040; 93005; 94640; 96361; 99284; J0456; J0696; J2310; J7030

== ENCOUNTER 2019-10-06 00:28 | Emergency (ER) | payer MEDICARE ==
[~2019-10-06] VITALS: Ht 175.3 cm; Wt 103.4 kg
[~2019-10-06 00:28] MED LIST changes: +CARAFATE1 GM/10 ML PO; +CLONAZEPAM0.5 MG PO; +COLCRYS0.6 MG PO; +DIGOXIN125 MCG PO; +DULCOLAX5 MG PO; +HYDROMORPHONE HC8 MG PO; +LEVAQUIN500 MG PO; +METHENAMINE HIPP1 GM PO; +VITAMIN B-121000 MC2 PO; +VITAMIN D31000 UNIT PO; +[UNRECOGNIZED DRUG - OTHER]
--- NOTE | 2019-10-06 01:20 | NUR ---
instructed on proper site selection for im injections. printed educational information regarding administering im injections and site selection.
--- NOTE | 2019-10-06 01:29 | NUR ---
NO BLEEDING NOTED TO SITE, SITE IS INTACT, PATIENT AND GIVEN INSTRUCTIONS REGARDING PRESSURE DRESSING, DR STONE INSTRUCTED TO LEAVE ON FOR TONIGHT THEN TAKE OFF IN THE MORNING
== END 2019-10-06 01:45 | disposition home or self-care (01) ==
LOC: ER 00:28
DX: T80.1XXA Vascular complications following infusion, transfusion and therapeutic injection, initial encounter (principal); Y84.8 Other medical procedures as the cause of abnormal reaction of the patient, or of later complication, without mention of misadventure at the time of the procedure; Y92.009 Unspecified place in unspecified non-institutional (private) residence as the place of occurrence of the external cause; Z79.01 Long term (current) use of anticoagulants; Z79.02 Long term (current) use of antithrombotics/antiplatelets; Z79.82 Long term (current) use of aspirin; Z79.52 Long term (current) use of systemic steroids; I48.91 Unspecified atrial fibrillation; J44.9 Chronic obstructive pulmonary disease, unspecified; I11.0 Hypertensive heart disease with heart failure; I50.9 Heart failure, unspecified; E11.9 Type 2 diabetes mellitus without complications; E03.9 Hypothyroidism, unspecified
CPT/HCPCS: 99282

== ENCOUNTER → 2019-12-14 | Outpatient (CLI) | payer MEDICARE ==
[~2019-12-14] MED LIST changes: +ALBUTEROL SULF 0.083% NEB SOLN 3 ML NEB ONE
== END ==
LOC: RESP 13:47
PROVIDERS: ATTEND Internal Medicine Critical Care Medicine
DX: R06.02 Shortness of breath (principal); R04.2 Hemoptysis; J18.9 Pneumonia, unspecified organism; J44.9 Chronic obstructive pulmonary disease, unspecified; J34.3 Hypertrophy of nasal turbinates; J34.89 Other specified disorders of nose and nasal sinuses; G47.33 Obstructive sleep apnea (adult) (pediatric); G47.61 Periodic limb movement disorder; I27.20 Pulmonary hypertension, unspecified; E66.9 Obesity, unspecified; Z87.891 Personal history of nicotine dependence
CPT/HCPCS: 94060; 94640; 94727; 94729

== ENCOUNTER → 2019-12-28 | Day surgery (SDC) | payer MEDICARE ==
[2019-12-24 15:37] LABS: BASOPHILS % 0.1 % (0.0-1.0); EOSINOPHILS # (AUTO) 0.1 (0.0-0.4); EOSINOPHILS % 0.5 % (0.0-6.0); HEMATOCRIT 37.1 % (38.2-49.6); HEMOGLOBIN 10.8 g/dL (14.0-18.0); LYMPHOCYTES # (AUTO) 0.6 (1.0-3.2); LYMPHOCYTES % 5.9 % (18.0-39.1); MEAN CORPUSCULAR HEMOGLOBIN 26.3 pg (28-32); MEAN CORPUSCULAR HGB CONC 29.1 g/dL (31-35); MEAN CORPUSCULAR VOLUME 90.3 fL (81-99); MONOCYTES # (AUTO) 0.5 (0.2-0.8); MONOCYTES % 5.2 % (4.4-11.3); NEUTROPHILS # (AUTO) 8.8 (2.1-6.9); NEUTROPHILS % 87.3 % (38.7-80.0); PLATELET COUNT 168 x10e3/uL (140-360); RED BLOOD COUNT 4.11 x10e6/uL (4.3-5.7); RED CELL DISTRIBUTION WIDTH 18.6 % (11.7-14.4)
[2019-12-24 15:57] LABS: ALBUMIN 3.3 g/dL (3.5-5.0); ALBUMIN/GLOBULIN RATIO 1.3 (0.8-2.0); ANION GAP 13.6 mmol/L (8-16); CALCIUM 9.2 mg/dL (8.4-10.2); CREATININE, SERUM 1.66 mg/dL (0.72-1.25); POTASSIUM 3.6 mmol/L (3.5-5.1)
--- NOTE | 2019-12-24 17:36 | NUR ---
Dr. Shayla hedrick regarding critical CO2 44, and BUN 60, creatinine 1.66 and eGFR 41.
[~2019-12-28] VITALS: Ht 175.3 cm; Wt 95.3 kg
[~2019-12-28] MED LIST changes: -ALBUTEROL SULF 0.083% NEB SOLN 3 ML NEB ONE; +BENZOCAINE 20% SPR 60 ML CAN ONE; +FENTANYL CITRATE/PF 100MCG/2 ML INJ ONE; +GABAPENTIN300 MG PO; +HYPERSAL NEB; +LIDOCAINE HCL 2% LOCAL INJ 5 ML SDV VIAL INJ ONE; +PROPOFOL IV EMULSION 10 MG/ML 20 ML VIAL ONE; +SODIUM CHLORIDE 0.9% 1000ML 1,000 ML ONE; +VITAMIN D35000 UNI2 PO
--- NOTE | 2019-12-28 12:21 | NUR ---
PROCEDURE NOTE- 1154- PATIENT BROUGHT TO E-3 FOR LAUREL. ANESTHESIA AT BEDSIDE ASSESSING PATIENT. 1206- MD ARRIVED AND TIME OUT PERFORMED WITH ALL PARTICIPATING STAFF. ALL AGREE. 1209- LAUREL PROBE IN 1215- LAUREL PROBE OUT 1217- PATIENT TRANSFERRED TO PHASE 2 PACU BAY #[id number] AND FULL REPORT GIVEN TO MELISA ORANTES.
[2019-12-28 12:45] VITALS: BP 107/82
== END | disposition home or self-care (01) ==
LOC: CATH LAB 09:40
PROVIDERS: ATTEND Internal Medicine Interventional Cardiology
DX: I48.19 Other persistent atrial fibrillation (principal); I25.118 Atherosclerotic heart disease of native coronary artery with other forms of angina pectoris; E11.22 Type 2 diabetes mellitus with diabetic chronic kidney disease; I13.0 Hypertensive heart and chronic kidney disease with heart failure and stage 1 through stage 4 chronic kidney disease, or unspecified chronic kidney disease; N18.4 Chronic kidney disease, stage 4 (severe); I50.9 Heart failure, unspecified; I87.2 Venous insufficiency (chronic) (peripheral); J44.9 Chronic obstructive pulmonary disease, unspecified; Z88.6 Allergy status to analgesic agent; Z01.812 Encounter for preprocedural laboratory examination; Z79.02 Long term (current) use of antithrombotics/antiplatelets; Z79.82 Long term (current) use of aspirin; Z79.84 Long term (current) use of oral hypoglycemic drugs; Z68.32 Body mass index [BMI] 32.0-32.9, adult; Z91.81 History of falling; Z95.818 Presence of other cardiac implants and grafts; Z87.01 Personal history of pneumonia (recurrent)
CPT/HCPCS: 36415 ×2; 80053; 82948; 85025; 93312; 93320; 93325; J2001; J2704; J3010; J7030

== ENCOUNTER 2020-06-12 18:36 | Inpatient (IN) | payer MEDICARE, OTHER ==
[~2020-06-12] VITALS: Ht 175.3 cm; Wt 95.3 kg
[~2020-06-12 18:36] MED LIST changes: -BENZOCAINE 20% SPR 60 ML CAN ONE; -FENTANYL CITRATE/PF 100MCG/2 ML INJ ONE; -LIDOCAINE HCL 2% LOCAL INJ 5 ML SDV VIAL INJ ONE; -PROPOFOL IV EMULSION 10 MG/ML 20 ML VIAL ONE; -SODIUM CHLORIDE 0.9% 1000ML 1,000 ML ONE
[2020-06-12] MEDS ORDERED: SODIUM CHLORIDE 0.9% 1000ML 1,000 ML IV ONE ×4 (19:00→22:00)
[2020-06-12] MEDS ORDERED: VANCOMYCIN 1GM/NS 250 ML 250 ML IV ONE (19:00)
[2020-06-12] MEDS ORDERED: ACETAMINOPHEN 325 MG TAB PO ONE (19:00)
[2020-06-12] MEDS ORDERED: PIPER-TAZ 3.375 GM 50 ML IV ONE (19:00)
[2020-06-12] MEDS ORDERED: SODIUM CHLORIDE 0.9% 1000ML 3,000 ML ONE (19:10)
--- NOTE | 2020-06-12 19:15 | Emergency Department Note ---
History of Present Illnes History of Present Illness Chief Complaint: General Medicine Complaints History of Present Illness This is a 74 year old male from home via EMS with reports of weakness and falls. Patient reports that he fell this morning at 0200 but his wasnt awake and able to help him until 0600. Patient then felt weak all day and fell again against the bed which is when EMS was called. Patient has a wound vac to his left elbow from a pressure wound. Also reports a wond to the top of his left foot. 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 Arrival Mode: [facility] Treatment HEAD SAWYER: O2 Onset (how long ago): day(s) (1) Location: all over Quality: generalized weakness Radiation: Reports non-radiation Severity: moderate, unable to specify Onset quality: gradual Duration (how long): day(s) (1) Timing of current episode: constant Progression: worsening Context: Reports recent illness (infection to left elbow and left foot) Relieving factors: none Exacerbating factors: none Associated symptoms: Reports denies other symptoms Treatments prior to arrival: none Past Medical/Family History Physician Review I have reviewed the patient's past medical and family history. Any updates have been documented here. Past Medical History Recent Fever: No Clinical Suspicion of Infectio: No New/Unexplained Change in Ment: No Past Medical History: Hypertension, Diabetes, COPD, CHF, A-Fib, Hypothyroidism, UTI's, Anxiety, Chronic Back Pain Other Medical History: BPH GLAUCOMA GOUT WATCHMAN PROCEDURE 11/10/2019 Past Surgical History: Back Surgery Other Surgery: PROSTATE SURGERY Social History Smoking Cessation: Former smoker Alcohol Use: None Any Illegal Drug Use: No Family History Family history of heart diseas: Yes Other family history htn,dm Other Last Tetanus: UTD Review of Systems Review of Systems Constitutional: Reports no symptoms EENTM: Reports no symptoms Cardiovascular: Reports no symptoms Respiratory: Reports no symptoms Gastrointestinal: Reports no symptoms Genitourinary: Reports no symptoms Musculoskeletal: Reports no symptoms Integumentary: Reports as per HPI Neurological: Reports as per HPI Psychological: Reports no symptoms Endocrine: Reports no symptoms Hematological/Lymphatic: Reports no symptoms Physical Exam Related Data Allergies: Coded Allergies: pregabalin (Verified Allergy, Unknown, RASH, 12/24/19) Triage Vital Signs Vital Signs Date Time Temp Pulse Resp B/P (MAP) Pulse Ox O2 Delivery O2 Flow Rate FiO2 06/12/20 18:43 97.7 117 17 84/67 100 Nasal Cannula 4.0 Vital signs reviewed: Yes Physical Exam CONSTITUTIONAL Constitutional: Present well-developed, Present well-nourished, Present di stressed (mild), Present ill appearing HENT HENT: Present normocephalic, Present atraumatic, Present mucosae dry, Present nose normal HENT L/R: Present left ext ear normal, Present right ext ear normal EYES Eyes: Reports PERRL, Reports conjunctivae normal NECK Neck: Present ROM normal PULMONARY Pulmonary: Present effort normal, Present breath sounds normal CARDIOVASCULAR Cardiovascular: Present irregular rhythm, Present heart sounds normal, Present capillary refill normal, Present tachycardia (123) GASTROINTESTINAL Abdominal: Present soft, Present nontender, Present bowel sounds normal GENITOURINARY Genitourinary: Present exam deferred SKIN pt with multiple skin tears to both arms has a wound vac to left elbow, no erythema surrounding this area open wound to top of left foot with erythema, swelling to left foot and lower leg up to his knee MUSCULOSKELETAL Musculoskeletal: Present ROM normal NEUROLOGICAL Neurological: Present alert, Present oriented x 3, Present no gross motor or sensory deficits PSYCHOLOGICAL Psychological: Present mood/affect normal, Present judgement normal Procedures 12 Lead ECG Interpretation ECG Interpretation : ECG: ECG 1 Nipping Machine Operator: Interpreted by ED physician Date: Jun 12, 2020 Time: 19:00 Rhythm: atrial fibrillation Rate: tachycardia BPM: 123 QRS axis: normal ST segment flattening: all T waves normal: Yes Q waves: III, V1 Clinical Impression: dysrhythmia - atrial (afib with rvr) Critical Care Time Total Critical Care Time (min): 31 Critcal care necessary due to: sepsis, shock (septic) Critcal care time spent by me: develop tx plan w patient/surrogate, discussion w primary provider, interpret cardiac output measures, evaluation patient response to tx, examination of patient, obtaining hx from patient/surrogate, order/perform tx or interventions, order/review laboratory studies, order/review radiographic studies, pulse oximetry, re-evaluation of patient condition, review of old charts Assessment & Plan Medical Decision Making MDM pt with fever, weakness, wound vac to left elbow, and open wound to top of left foot with erythema up to left knee and hypotensive on arrival sepsis time 1900 source cellulitis lle. cbc, cmp, ekg, cardiac enzymes, cxr, ua , urine culture, blood cultures, lactic acid ordered to eval for leukocytosis, uti, electrolyte abnormality, pneumonia, myocardial infarction, 30cc/kg ns iv bolus ordered. 3 liters normal saline iv bolus total ordered zosyn 3.375 grams iv ordered vancomycin 1 gram iv ordered tylenol 975 mg po ordered. FIRST LACTIC 2.8 REPEAT AFTER FLUID BOLUS 1.[address] MEDINA ADMIT INPATIENT Reassessment Reassessment time: 20:59 Reassessment i did a bedside fluid resuscitation exam current vitals Date Time Temp Pulse Resp B/P (MAP) Pulse Ox O2 Delivery O2 Flow Rate FiO2 06/12/20 20:20 101 17 116/58 100 Nasal Cannula 4.0 06/12/20 19:00 100.2 Assessment & Plan Final Impression: (1) Septic shock (2) Cellulitis of left leg (3) Open wound of left foot (4) Acute on chronic renal failure (5) Afib Depart Disposition: ADMITTED Last Vital Signs Date Time Temp Pulse Resp B/P (MAP) Pulse Ox O2 Delivery O2 Flow Rate FiO2 06/12/20 19:00 100.2 127 17 06/12/20 18:43 100 Nasal Cannula 4.0 Home Meds Reported Medications Tamsulosin Hcl* (FLOMAX*) 0.4 Mg Cap, 0.4 MG PO BID, #30 CAP 12/24/19 Cholecalciferol (Vitamin D3) (Vitamin D3) 5,000 Unit Tab.rapdis, 08762 UNITS PO DAILY 12/24/19 Gabapentin (GABAPENTIN) 300 Mg Capsule, 300 MG PO BID, #60 CAP 12/24/19 Baclofen (BACLOFEN) 10 Mg Tablet, PO BID, #90 TAB 12/24/19 Metoprolol Tartrate (METOPROLOL TARTRATE) 25 Mg Tablet, 12.5 MG PO BID, TAB 12/24/19 Bumetanide (BUMETANIDE) 1 Mg Tablet, 1 MG PO BID, #30 TAB 08/12/19 Clonazepam (CLONAZEPAM) 0.5 Mg Tablet, 0.25 MG PO HS PRN for SLEEP, TAB 08/05/19 Metolazone (METOLAZONE) 5 Mg Tablet, 5 MG PO HS, #30 TAB 08/05/19 Sodium Chloride For Inhalation (HYPER-CANDY) 4 Ml Vial.neb, 7 % INH PRN 08/05/19 Hydromorphone Hcl (HYDROMORPHONE HCL) 8 Mg Tablet, 8 MG PO DAILY PRN for SEVERE PAIN (7-10) 08/05/19 Colchicine (COLCRYS) 0.6 Mg Tablet, 0.6 MG PO DAILY PRN for Mild Pain (1-3) or Fever>100.8, #30 TAB NEEDED FOR GOUT SYMPTOMS 08/05/19 Psyllium Husk (WAL-MUCIL) 0.52 Gm Capsule, 8 CAP PO DAILY 08/05/19 Cyanocobalamin (Vitamin B-12) (VITAMIN B-12) 1,000 Mcg Tab.subl, 1000 MCG PO .WEEKLY 08/05/19 Guaifenesin (MUCUS RELIEF) 400 Mg Tablet, 1 TAB PO BID PRN for NASAL CONGESTION 08/05/19 Folic Acid (FOLIC ACID) 1 Mg Tablet, 400 MCG PO BID, #30 TAB 08/05/19 Bisacodyl (DULCOLAX) 5 Mg Tablet.dr, 2 TAB PO DAILY 08/05/19 Prednisone (PREDNISONE) 20 Mg Tab, 20 MG PO BID, TAB 08/05/19 Potassium Chloride (POTASSIUM CHLORIDE) 20 Meq Tab.er.prt, 20 MEQ PO BID 08/05/19 Methenamine Hippurate (METHENAMINE HIPPURATE) 1 Gm Tablet, 0.5 TAB PO BID 08/05/19 [Alcomethasone Dipror] No Conflict Check, 0.05 % DAILY 08/05/19 Allopurinol (ALLOPURINOL) 300 Mg Tablet, 300 MG PO HS, #30 TAB 04/23/19 Rivaroxaban (XARELTO) 15 Mg Tablet, 15 MG PO DAILY 02/08/19 Hydromorphone/Bupiv/0.9NACL/Pf (HYDROMOR-BUPIVA 10 MCG-0.0625%) 100 Ml Pump.resvr, 1 DOSE SC DAILY 02/08/19 Alprazolam (ALPRAZOLAM) 0.5 Mg Tablet, 0.5 MG PO PRN 02/08/19 Mirabegron (MYRBETRIQ) 50 Mg Tab.er.24h, 50 MG PO DAILY 01/06/19 Albuterol Sulf* (PROAIR HFA INHALER*) 8.5 Gm Inh, 2 EACH INH DAILY PATIENT TAKES 3-5 PUFFS INHALATION 12/30/18 Clopidogrel Bisulfate (CLOPIDOGREL) 75 Mg Tablet, 75 MG PO DAILY, #30 TAB 12/07/18 Testosterone Cypionate (TESTOSTERONE CYPIONATE) 200 Mg/1 Ml Vial, 200 MG IM every 2 weeks 09/13/18 Albuterol Sulfate (ALBUTEROL SULFATE) 0.63 Mg/3 Ml Vial.neb, 0.83 % NEB BID 09/13/18 Sertraline Hcl (SERTRALINE HCL) 50 Mg Tablet, 50 MG PO HS, #30 TAB 07/31/18 Ropinirole Hcl (ROPINIROLE HCL) 0.25 Mg Tablet, 0.5 MG PO BID, #90 TAB 07/31/18 Aspirin (ASPIR 81) 81 Mg Tablet.dr, 1 TAB PO DAILY 05/07/17 Budesonide (BUDESONIDE) 0.5 Mg/2 Ml Ampul.neb, 2 ML NEB BID, EACH 05/07/17 Clobetasol Propionate (CLOBETASOL PROPIONATE) 1 Ea/15 Gm Cr, 1 EA TOP DAILY 05/07/17 Liothyronine Sodium (LIOTHYRONINE SODIUM) 5 Mcg Tablet, 5 MCG PO QAM 05/07/17 Levothyroxine Sodium (LEVOTHYROXINE SODIUM) 50 Mcg Tablet, 100 MCG PO DAILY, #30 TAB 05/07/17 Latanoprost (LATANOPROST) 2.5 Ml Drops, 1 DROP OU HS 09/01/13 CLEMENTINA STONE MD Jun 12, 2020 19:15
[2020-06-12 19:17] LABS: BASOPHILS # (AUTO) 0.1 (0.0-0.1); BASOPHILS % 0.3 % (0.0-1.0); EOSINOPHILS # (AUTO) 0.1 (0.0-0.4); EOSINOPHILS % 0.6 % (0.0-6.0); HEMOGLOBIN 13.1 g/dL (14.0-18.0); LYMPHOCYTES # (AUTO) 1.1 (1.0-3.2); LYMPHOCYTES % 6.4 % (18.0-39.1); MEAN CORPUSCULAR HEMOGLOBIN 29.3 pg (28-32); MEAN CORPUSCULAR HGB CONC 30.5 g/dL (31-35); MEAN CORPUSCULAR VOLUME 96.2 fL (81-99); MONOCYTES # (AUTO) 0.8 (0.2-0.8); MONOCYTES % 4.8 % (4.4-11.3); NEUTROPHILS # (AUTO) 14.9 (2.1-6.9); NEUTROPHILS % 87.1 % (38.7-80.0); PLATELET COUNT 163 x10e3/uL (140-360); RED BLOOD COUNT 4.47 x10e6/uL (4.3-5.7); RED CELL DISTRIBUTION WIDTH 17.5 % (11.7-14.4)
[2020-06-12 19:22] LABS: PARTIAL THROMBOPLASTIN TIME 39.5 seconds (23.8-35.5)
[2020-06-12 19:30] LABS: ALBUMIN 3.3 g/dL (3.5-5.0); ALBUMIN/GLOBULIN RATIO 1.1 (0.8-2.0); ANION GAP 20.5 mmol/L (8-16); CALCIUM 9.4 mg/dL (8.4-10.2); CREATININE, SERUM 3.02 mg/dL (0.72-1.25); POTASSIUM 3.5 mmol/L (3.5-5.1)
[2020-06-12 19:35] LABS: CREATINE KINASE MB 3.4 ng/mL (0-5.0)
[2020-06-12 19:51] LABS: INR 0.98; PROTHROMBIN TIME 13.5 seconds (11.9-14.5)
--- NOTE | 2020-06-12 20:33 | Diagnostic Imaging Report ---
EXAMINATION: CHEST SINGLE (PORTABLE) COMPARISON: Chest x-ray 10/16/2019 INDICATION: ^WEAKNESS ^Y fall DISCUSSION: Frontal view of the chest obtained at 1945 hours. HEART AND MEDIASTINUM: The heart is enlarged. The ureter is tortuous LINES: None. LUNGS/PLEURA: Subsegmental atelectasis in the left lower lobe has increased. Right lung is clear. Vascular markings are normal. No large effusions. No pneumothorax BONES AND SOFT TISSUES: Fusion plate in the lower cervical spine is partially imaged but grossly intact. There are fractures of the left sixth and seventh ribs. Fracture of the left eighth rib cannot be excluded. Mild degenerative changes of the acromioclavicular joints. The soft tissues are normal. IMPRESSION: Fractures of the left sixth and seventh ribs and possibly the left eighth rib. Subsegmental atelectasis of the left lung. No evidence of pneumothorax or hemothorax. Signed by: Dr. Lalo Kim MD on 06/12/2020 8:30 PM
--- OUTSIDE RECORDS SUMMARY | 2020-06-12 21:15 | XMS REPORT | Clinical Summary ---
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 Active Problems Problem Noted Date COPD (chronic obstructive pulmonary disease) 019 ALISON (acute kidney injury) 05/06/2019 Renal failure (ARF), acute on chronic 05/06/2019 Hypocalcemia 05/06/2019 A-fib 05/06/2019 Hypoproteinemia 05/06/2019 Hypothyroidism 05/06/2019 Metabolic encephalopathy 05/05/2019 Hypotension due to hypovolemia 05/05/2019 Hypokalemia 05/05/2019 Closed fracture of multiple ribs of right side 05/05 Social History Date Tobacco Use Types Packs/Day Years Used Former Smoker Smokeless Tobacco: Never Used Drinks/Week oz/Week Comments Alcohol Use Not Currently Sex Assigned at Date Recorded Not on file Industry Job Start Date Occupation Not on file Not on file Not on file Travel End Travel History Travel Start No recent travel history available. 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
--- OUTSIDE RECORDS SUMMARY | 2020-06-12 21:16 | XMS REPORT | Summary of Care ---
Author Author [facility] Organization [facility] Address Unknown Phone Unavailable Encounter HQ Cindy(LENY) [id number] Date(s): 04/07/20 - 04/12/20 [facility] [address] [employer] provided by [facility] [place] [address]- Discharge Disposition: Home or Self Care Attending Physician: Morales Tolbert MD Admitting Physician: Morales Tolbert MD Referring Physician: Morales Tolbert MD Vital Signs 1 2 3 Most recent to oldest [Reference Range]: 175.26 cm (04/07/20 1:34 PM) 175.26 cm (04/07/20 9:31 AM) 175.26 cm (04/07/20 5:57 AM) Height 97.9 DegF (04/12/20 7:56 PM) 97.0 DegF (04/12/20 3:53 PM) 98.1 DegF (04/12/20 3:11 PM) Temperature Oral [96.4-99.1 DegF] 105/60 mmHg (04/12/20 7:56 PM) 97/63 mmHg (04/12/20 6:30 PM) 95/53 mmHg (04/12/20 3:53 PM) Blood Pressure [90-140/60-90 mmHg] 16 BRMIN (04/12/20 7:56 PM) 20 BRMIN (04/12/20 3:53 PM) 20 BRMIN (04/12/20 3:11 PM) Respiratory Rate [14-20 BRMIN] 64 bpm (04/12/20 7:56 PM) 68 bpm (04/12/20 3:53 PM) 89 bpm (04/12/20 3:11 PM) Peripheral Pulse Rate [60-100 bpm] 99.091 kg (04/07/20 1:34 PM) 99.2 kg (04/07/20 9:31 AM) 99.2 kg (04/07/20 5:57 AM) Weight 32.26 m2 (04/07/20 1:34 PM) 32.3 m2 (04/07/20 5:57 AM) 31.97 m2 (04/03/20 12:53 PM) Body Mass Index Problem List Condition Effective Dates Status Health Status Informan t Afib(Confirmed) Resolved Anxiety(Confirmed) Resolved Arthritis(Confirmed) Resolved Arthropathy(Confirme Resolved d) watchman(Confirmed) Active Atrial fibrillation Resolved and flutter(Confirmed) Backache(Confirmed) Resolved 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(Confirmed) Bronchitis(Confirmed Resolved ) Cataract(Confirmed) Resolved Chronic kidney Resolved disease (CKD)(Confirmed) COPD(Confirmed) Resolved CAD (coronary artery Resolved disease)(Confirmed) Oxygen Resolved dependent(Confirmed) Diabetes mellitus Resolved type 1(Confirmed) Diabetes(Confirmed) Resolved Glaucoma(Confirmed) Resolved Gout(Confirmed) Resolved History of Resolved transfusion(Confirme d) Hypertension(Confirm Resolved ed) Hypothyroid(Confirme Resolved d) Impotence, Resolved organic(Confirmed) Urinary Active frequency(Confirmed) Mumps(Confirmed) Resolved Neuropathy(Confirmed Resolved ) Nocturia(Confirmed) Resolved Obesity(Confirmed) Active Osteoarthritis(Confi Resolved rmed) Peripheral vascular Resolved disease(Confirmed) Seborrheic Resolved dermatitis(Confirmed ) Sleep Resolved apnea(Confirmed) Thoracic Resolved radiculopathy(Confir med) Urgency of Active urination(Confirmed) Other specified Resolved urinary incontinence(Confirm ed) UTI (urinary tract Resolved infection)(Confirmed ) Vertigo(Confirmed) Resolved Allergies, Adverse Reactions, Alerts Substance Reaction Severity Status Lyrica1 Active 1RASH Medications acetaminophen 650 mg, 2 tab, Route: PO, Drug form: TAB, Q4H, Dosing Weight 99.2, kg, PRN Pain 1-3/Temp > 100.4 F, Start date: 04/07/20 8:11:00 CDT, Duration: 30 day, Stop date: 05/07/20 8:10:00 CDT, 0 Notes: Do not exceed 4 gm/day. (Same as: Tylenol) Start Date: 04/07/20 Stop Date: 04/13/20 Status: Discontinued acetaminophen-hydrocodone 325 mg-10 mg oral tablet 1 tab, Route: PO, Drug Form: TAB, Dosing Weight 99.2, kg, Q4H, PRN Pain Score 4- 6, Start date: 04/07/20 8:11:00 CDT, Duration: 30 day, Stop date: 05/07/20 8:10: 00 CDT, 0 Notes: Do not exceed 4gm/day of acetaminophen. (Same as: [place] 325/10) Start Date: 04/07/20 Stop Date: 04/13/20 Status: Discontinued acetaminophen-hydrocodone 325 mg-10 mg oral tablet 2 tab, Route: PO, Drug Form: TAB, Dosing Weight 99.2, kg, Q4H, PRN Pain Score 7- 10, Start date: 04/07/20 8:11:00 CDT, Duration: 30 day, Stop date: 05/07/20 8:10 :00 CDT, 0 Notes: Do not exceed 4gm/day of acetaminophen. (Same as: [place] 325/10) Start Date: 04/07/20 Stop Date: 04/13/20 Status: Discontinued albuterol (ANES) Route: INHALATION, Drug form: AERO/A, ONCE, Stop date: 04/07/20 9:48:00 CDT Start Date: 04/07/20 Stop Date: 04/07/20 Status: Completed albuterol 0.083% inhalation solution 2.5 mg = 3 mL, NEB, BID, 0 Refill(s) Start Date: 04/07/20 Status: Ordered albuterol 0.083% inhalation solution 2.5 mg, 3.01 mL, Route: NEB, Drug form: SOLN, RBID, Dosing Weight 99.2, kg, Star t date: 04/07/20 20:00:00 CDT, Duration: 30 day, Stop date: 05/07/20 8:00:00 CDT , 0 Notes: SEE RT DOCUMENTATION (Same as: Madhuri) Start Date: 04/07/20 Stop Date: 04/13/20 Status: Discontinued albuterol 90 mcg/inh inhalation aerosol 2 puff, INHALATION, Q6H, 0 Refill(s) Start Date: 04/07/20 Status: Ordered alclometasone topical 0.05% cream TOP, Daily, 0 Refill(s) Start Date: 04/07/20 Status: Ordered allopurinol 50 mg, 0.5 tab, Route: PO, Drug form: TAB, QPM, Dosing Weight 99.2, kg, Start da te: 04/07/20 17:00:00 CDT, Duration: 30 day, Stop date: 05/06/20 17:00:00 CDT, 0 Start Date: 04/07/20 Stop Date: 04/13/20 Status: Discontinued allopurinol 300 mg oral tablet 300 mg = 1 tab, PO, QPM, 0 Refill(s) Start Date: 04/07/20 Status: Ordered ANES acetaminophen 1,000 mg, 2 tab, Route: PO, Drug form: TAB, ONCE, Dosing Weight 99.2, kg, PRN Pa in Score 1-3, Start date: 04/07/20 9:31:00 CDT, 0 Notes: Max acetaminophen 4000 mg/day (4 gm/day). (Same as: Tylenol Extra Streng th) Start Date: 04/07/20 Stop Date: 04/07/20 Status: Discontinued ANES esmolol 10 mg, 1 mL, Route: IVP, Drug form: INJ, Q5Min, Dosing Weight 99.2, kg, PRN Othe r -See Comment, Start date: 04/07/20 9:31:00 CDT, Duration: 5 doses or times, St op date: 04/08/20 0:00:00 CDT, 0 Notes: (Same as: Brevibloc) Start Date: 04/07/20 Stop Date: 04/07/20 Status: Discontinued ANES flumazenil 0.2 mg, 2 mL, Route: IVP, Drug form: INJ, PRN, Dosing Weight 99.2, kg, PRN Benzo diazepine Reversal, Initial dose, Start date: 04/07/20 9:31:00 CDT, Duration: 30 day, Stop date: 05/07/20 9:30:00 CDT, 0 Notes: (Same as: Romazicon) Start Date: 04/07/20 Stop Date: 04/07/20 Status: Discontinued ANES hydrALAZINE 10 mg, 0.5 mL, Route: IVP, Drug form: INJ, Q20Min, Dosing Weight 99.2, kg, PRN E levated BP, Start date: 04/07/20 9:31:00 CDT, Duration: 2 doses or times, Stop d ate: 04/08/20 0:00:00 CDT, 0 Notes: (Same as: Apresoline)Push over 5 minutes Start Date: 04/07/20 Stop Date: 04/07/20 Status: Discontinued ANES HYDROmorphone 0.5 mg, 0.25 mL, Route: IVP, Drug form: INJ, Q5Min, Dosing Weight 99.2, kg, PRN Pain Score 7-10, Start date: 04/07/20 9:31:00 CDT, Duration: 4 doses or times, S top date: 04/08/20 0:00:00 CDT, 0 Notes: Same as Dilaudid Start Date: 04/07/20 Stop Date: 04/07/20 Status: Discontinued ANES labetalol 10 mg, 2 mL, Route: IVP, Drug form: INJ, Q5Min, Dosing Weight 99.2, kg, PRN Elev ated BP, Start date: 04/07/20 9:31:00 CDT, Duration: 5 doses or times, Stop date : 04/08/20 0:00:00 CDT, 0 Start Date: 04/07/20 Stop Date: 04/07/20 Status: Discontinued ANES naloxone 0.4 mg, 1 mL, Route: IVP, Drug form: INJ, Q2MIN, Dosing Weight 99.2, kg, PRN Jose cotic Reversal, Start date: 04/07/20 9:31:00 CDT, Duration: 8 doses or times, St op date: 04/08/20 0:00:00 CDT, 0 Notes: Same as Narcan Start Date: 04/07/20 Stop Date: 04/07/20 Status: Discontinued ANES ondansetron 4 mg, 2 mL, Route: IVP, Drug form: INJ, ONCE, Dosing Weight 99.2, kg, PRN Nausea & Vomiting, Start date: 04/07/20 9:31:00 CDT, 0 Notes: (Same as: Zofran) MEDICATION WASTE Product Size: 4 mgProduct Was chaparro: ___ mg Start Date: 04/07/20 Stop Date: 04/07/20 Status: Discontinued ANES oxyCODONE 5 mg immediate release tablet 5 mg, 1 tab, Route: PO, Drug form: TAB, Q4H, Dosing Weight 99.2, kg, PRN Pain Sc ore 4-6, Start date: 04/07/20 9:31:00 CDT, Duration: 30 day, Stop date: 05/07/20 9:30:00 CDT, 0 Notes: (Same as: Roxicodone) Start Date: 04/07/20 Stop Date: 04/07/20 Status: Discontinued baclofen 10 mg, 1 tab, Route: PO, Drug form: TAB, QAM and Bedtime, Dosing Weight 99.2, kg , Start date: 04/07/20 21:00:00 CDT, Duration: 30 day, Stop date: 05/07/20 9:00: 00 CDT, 0 Notes: (Same As: Lioresal) Start Date: 04/07/20 Stop Date: 04/13/20 Status: Discontinued baclofen 10 mg oral tablet 10 mg = 1 tab, PO, BID, 0 Refill(s) Start Date: 04/07/20 Status: Ordered baclofen 10 mg oral tablet 10 mg = 1 tab, PO, QAM & PM, # 270 tab, 0 Refill(s) Start Date: 04/03/20 Stop Date: 04/07/20 Status: Discontinued budesonide 0.5 mg/2 mL inhalation suspension 0.5 mg, 2 mL, Route: NEB, Drug form: SUSP, RDaily, Dosing Weight 99.2, kg, Start date: 04/08/20 8:00:00 CDT, Duration: 30 day, Stop date: 05/07/20 8:00:00 CDT, 0 Notes: (Same As: Pulmicort) Start Date: 04/08/20 Stop Date: 04/13/20 Status: Discontinued bumetanide 2 mg, 2 tab, Route: PO, Drug form: TAB, QAM & PM, Dosing Weight 99.2, kg, Start date: 04/07/20 17:00:00 CDT, Duration: 30 day, Stop date: 05/07/20 8:30:00 CDT, 0 Notes: (Same As: Bumex) Start Date: 04/07/20 Stop Date: 04/07/20 Status: Canceled ceFAZolin (ANES) Route: IV, Drug form: INJ, ONCE, Stop date: 04/07/20 9:38:00 CDT Start Date: 04/07/20 Stop Date: 04/07/20 Status: Completed ceFAZolin (SCIP) + sterile water 10 mL 1 gm, Route: IVPB, Q8H, Dosing Weight 99.2, kg, Start date: 04/07/20 16:00:00 CD T, Duration: 1 doses or times, Stop date: 04/07/20 16:00:00 CDT, ABX Indication: Surgical Prophylaxis, 0 Notes: (Same As: Ancef, Kefzol) MEDICATION WASTE Product Size: 1000 mgP roduct Wasted: _0__ mg Start Date: 04/07/20 Stop Date: 04/07/20 Status: Completed cetirizine 10 mg, 1 tab, Route: PO, Drug form: TAB, QPM, Dosing Weight 99.2, kg, Start date : 04/07/20 17:00:00 CDT, Duration: 30 day, Stop date: 05/06/20 17:00:00 CDT, 0 Notes: (Same As: Zyrtec) Start Date: 04/07/20 Stop Date: 04/13/20 Status: Discontinued clobetasol topical 0.05% ointment 1 appl, Route: TOP, Daily, Drug form: OINT, Start date: 04/07/20 9:00:00 CDT, Du ration: 30 day, Stop date: 05/06/20 9:00:00 CDT, 0 Notes: (clobetasol propionate 0.05% 15 gm top OIN) (Same As: Temovate) Start Date: 04/07/20 Stop Date: 04/13/20 Status: Discontinued clonazePAM 0.5 mg, 1 tab, Route: PO, Drug form: TAB, BID, Dosing Weight 99.2, kg, PRN Anxie ty, Start date: 04/07/20 8:51:00 CDT, Duration: 30 day, Stop date: 05/07/20 8:50 :00 CDT, 0 Start Date: 04/07/20 Stop Date: 04/13/20 Status: Discontinued clonazePAM 0.5 mg oral tablet 0.5 mg = 1 tab, PO, BID, PRN anxiety, # 60 tab, 0 Refill(s) Start Date: 04/07/20 Status: Ordered clonazePAM 0.5 mg oral tablet 0.5 mg = 1 tab, PO, BID, PRN anxiety, # 60 tab, 0 Refill(s) Start Date: 04/03/20 Stop Date: 04/07/20 Status: Discontinued Dextrose 50% Syringe (D50W) 12.5 gm, 25 mL, Route: IVP, Drug Form: INJ, Dosing Weight 99.091, kg, PRN, PRN B lood Glucose Results, Start date: 04/07/20 15:48:00 CDT, Duration: 30 day, Stop date: 05/07/20 15:47:00 CDT, 0 Start Date: 04/07/20 Stop Date: 04/13/20 Status: Discontinued Dextrose 50% Syringe (D50W) 25 gm, 50 mL, Route: IVP, Drug Form: INJ, Dosing Weight 99.091, kg, PRN, PRN Blo od Glucose Results, Start date: 04/07/20 15:48:00 CDT, Duration: 30 day, Stop da te: 05/07/20 15:47:00 CDT, 0 Start Date: 04/07/20 Stop Date: 04/13/20 Status: Discontinued docusate sodium 100 mg, 1 cap, Route: PO, Drug form: CAP, BID, Dosing Weight 99.091, kg, PRN Con stipation, Start date: 04/08/20 14:13:00 CDT, Duration: 30 day, Stop date: 05/08 14:12:00 CDT, 0 Notes: (Same as: Colace) (Do Not Crush) Start Date: 04/08/20 Stop Date: 04/13/20 Status: Discontinued docusate sodium 100 mg oral capsule 100 mg = 1 cap, PO, BID, PRN Constipation, # 20 cap, 0 Refill(s) Start Date: 04/12/20 Status: Ordered Dulcolax Laxative 10 mg, 1 supp, Route: AL, Drug form: SUPP, QPM, Dosing Weight 99.2, kg, PRN Cons tipation, Start date: 04/07/20 8:51:00 CDT, Duration: 30 day, Stop date: 0 8:50:00 CDT, 0 Notes: (Same As: Dulcolax, Bisco-Lax) Start Date: 04/07/20 Stop Date: 04/13/20 Status: Discontinued Dulcolax Laxative 5 mg oral enteric coated tablet 5 mg = 1 tab, PO, QPM, 0 Refill(s) Start Date: 04/07/20 Status: Ordered esmolol (ANES) Route: IV, Drug form: INJ, ONCE, Stop date: 04/07/20 9:33:00 CDT Start Date: 04/07/20 Stop Date: 04/07/20 Status: Completed fentaNYL (ANES) Route: IV, Drug form: INJ, ONCE, Stop date: 04/07/20 9:33:00 CDT Start Date: 04/07/20 Stop Date: 04/07/20 Status: Completed Flomax 0.4 mg oral capsule 0.4 mg = 1 cap, PO, BID, 0 Refill(s) Start Date: 04/07/20 Status: Ordered folic acid 400 microgram, 1 tab, Route: PO, Drug form: TAB, QAM & PM, Dosing Weight 99.2, kg, Start date: 04/07/20 17:00:00 CDT, Duration: 30 day, Stop date: 05/07/20 8:30:00 CDT, 0 Start Date: 04/07/20 Stop Date: 04/13/20 Status: Discontinued folic acid 0.4 mg oral tablet 0.4 mg = 1 tab, PO, Daily, # 100 tab, 0 Refill(s) Start Date: 04/07/20 Status: Ordered gabapentin 300 mg oral capsule 300 mg = 1 cap, PO, QPM, 0 Refill(s) Start Date: 04/07/20 Status: Ordered gabapentin 300 mg oral capsule 300 mg, 1 cap, Route: PO, Drug form: CAP, QPM, Dosing Weight 99.2, kg, Start hoang e: 04/07/20 17:00:00 CDT, Duration: 30 day, Stop date: 05/06/20 17:00:00 CDT, 0 Notes: (Same as: Neurontin) Start Date: 04/07/20 Stop Date: 04/13/20 Status: Discontinued gabapentin 300 mg oral capsule 300 mg = 1 cap, PO, QPM, # 90 cap, 1 Refill(s) Start Date: 04/03/20 Stop Date: 04/07/20 Status: Discontinued glucagon 1 mg, Route: IM, Drug form: PDR/INJ, PRN, Dosing Weight 99.091, kg, PRN Blood Gl ucose Results, Start date: 04/07/20 15:48:00 CDT, Duration: 30 day, Stop date: 0 05/07/20 15:47:00 CDT, 0 Start Date: 04/07/20 Stop Date: 04/13/20 Status: Discontinued hydromorphone 0.1 mg, 0.05 mL, Route: IVP, Drug form: INJ, Q4H, Dosing Weight 99.2, kg, PRN Pa in Score 7-10, Start date: 04/07/20 8:11:00 CDT, Duration: 30 day, Stop date: 8:10:00 CDT, 0 Notes: Same as Dilaudid Start Date: 04/07/20 Stop Date: 04/07/20 Status: Discontinued hydromorphone 8 mg oral tablet 8 mg = 1 tab, PO, PRN, PRN Pain, 0 Refill(s) Start Date: 04/07/20 Stop Date: 04/14/20 Status: Ordered HyperSal 7% inhalation solution PRN, 0 Refill(s) Start Date: 04/07/20 Status: Ordered insulin lispro 2 unit, 0.02 mL, Route: SUB-Q, Drug form: SOLN, TID-Before Meals, Dosing Weight 99.091, kg, PRN Blood Glucose Results, Start date: 04/07/20 15:48:00 CDT, Durati on: 30 day, Stop date: 05/07/20 15:47:00 CDT, 0 Notes: (Same as: Humalog) Roll in palms of hands gently; Do not shake vigorously . WASTE: F/P - Black; E - Municipal Trash BinStable for 28 days at room tempera ture.Expires in days from Date Start Date: 04/07/20 Stop Date: 04/13/20 Status: Discontinued insulin lispro 4 unit, 0.04 mL, Route: SUB-Q, Drug form: SOLN, TID-Before Meals, Dosing Weight 99.091, kg, PRN Blood Glucose Results, Start date: 04/07/20 15:48:00 CDT, Durati on: 30 day, Stop date: 05/07/20 15:47:00 CDT, 0 Notes: (Same as: Humalog) Roll in palms of hands gently; Do not shake vigorously . WASTE: F/P - Black; E - Municipal Trash BinStable for 28 days at [facility].Expires in days from Date Start Date: 04/07/20 Stop Date: 04/13/20 Status: Discontinued insulin lispro 6 unit, 0.06 mL, Route: SUB-Q, Drug form: SOLN, TID-Before Meals, Dosing Weight 99.091, kg, PRN Blood Glucose Results, Start date: 04/07/20 15:48:00 CDT, Durati on: 30 day, Stop date: 05/07/20 15:47:00 CDT, 0 Notes: (Same as: Humalog) Roll in palms of hands gently; Do not shake vigorously . WASTE: F/P - Black; E - [employer] Trash BinStable for 28 days at [facility].Expires in days from Date Start Date: 04/07/20 Stop Date: 04/13/20 Status: Discontinued insulin lispro 8 unit, 0.08 mL, Route: SUB-Q, Drug form: SOLN, TID-Before Meals, Dosing Weight 99.091, kg, PRN Blood Glucose Results, Start date: 04/07/20 15:48:00 CDT, Durati on: 30 day, Stop date: 05/07/20 15:47:00 CDT, 0 Notes: (Same as: Humalog) Roll in palms of hands gently; Do not shake vigorously . WASTE: F/P - Black; E - [employer] Trash BinStable for 28 days at room [facility].Expires in days from Date Start Date: 04/07/20 Stop Date: 04/13/20 Status: Discontinued insulin lispro 10 unit, 0.1 mL, Route: SUB-Q, Drug form: SOLN, TID-Before Meals, Dosing Weight 99.091, kg, PRN Blood Glucose Results, Start date: 04/07/20 15:48:00 CDT, Durati on: 30 day, Stop date: 05/07/20 15:47:00 CDT, 0 Notes: (Same as: Humalog) Roll in palms of hands gently; Do not shake vigorously . WASTE: F/P - Black; E - Municipal Trash BinStable for 28 days at room tempera ture.Expires in days from Date Start Date: 04/07/20 Stop Date: 04/13/20 Status: Discontinued Insulin regular 1 unit, 0.01 mL, Route: SUB-Q, Drug form: SOLN, Sliding Scale, Dosing Weight 99. 2, kg, PRN Blood Glucose Results, Start date: 04/07/20 10:25:00 CDT, Duration: 3 0 day, Stop date: 05/07/20 10:24:00 CDT, 0 Notes: (Same as: Humulin R) Roll in palms of hands gently; Do not shake vigorous ly. WASTE: F/P - Black; E - Municipal Trash BinStable for 31 days at r o temperature Expires in days from Date Start Date: 04/07/20 Stop Date: 04/07/20 Status: Discontinued Insulin regular 2 unit, 0.02 mL, Route: SUB-Q, Drug form: SOLN, Sliding Scale, Dosing Weight 99. 2, kg, PRN Blood Glucose Results, Start date: 04/07/20 10:25:00 CDT, Duration: 3 0 day, Stop date: 05/07/20 10:24:00 CDT, 0 Notes: (Same as: Humulin R) Roll in palms of hands gently; Do not shake vigorous ly. WASTE: F/P - Black; E - Municipal Trash BinStable for 31 days at [facility] temperature Expires in days from Date Start Date: 04/07/20 Stop Date: 04/07/20 Status: Discontinued Insulin regular 3 unit, 0.03 mL, Route: SUB-Q, Drug form: SOLN, Sliding Scale, Dosing Weight 99. 2, kg, PRN Blood Glucose Results, Start date: 04/07/20 10:25:00 CDT, Duration: 3 0 day, Stop date: 05/07/20 10:24:00 CDT, 0 Notes: (Same as: Humulin R) Roll in palms of hands gently; Do not shake vigorous ly. WASTE: F/P - Black; E - Municipal Trash BinStable for [facility] days at [facility] Expires in days from Date Start Date: 04/07/20 Stop Date: 04/07/20 Status: Discontinued Insulin regular 4 unit, 0.04 mL, Route: SUB-Q, Drug form: SOLN, Sliding Scale, Dosing Weight 99. 2, kg, PRN Blood Glucose Results, Start date: 04/07/20 10:25:00 CDT, Duration: 3 0 day, Stop date: 05/07/20 10:24:00 CDT, 0 Notes: (Same as: Humulin R) Roll in palms of hands gently; Do not shake vigorous ly. WASTE: F/P - Black; E - Municipal Trash BinStable for 31 days at [facility] Expires in days from Date Start Date: 04/07/20 Stop Date: 04/07/20 Status: Discontinued Insulin regular 5 unit, 0.05 mL, Route: SUB-Q, Drug form: SOLN, Sliding Scale, Dosing Weight 99. 2, kg, PRN Blood Glucose Results, Start date: 04/07/20 10:25:00 CDT, Duration: 3 0 day, Stop date: 05/07/20 10:24:00 CDT, 0 Notes: (Same as: Humulin R) Roll in palms of hands gently; Do not shake vigorous ly. WASTE: F/P - Black; E - Municipal Trash BinStable for 31 days at r oom temperature Expires in days from Date Start Date: 04/07/20 Stop Date: 04/07/20 Status: Discontinued Lactated Ringers Injection IV (ANES) 1000 mL Route: IV, Total Volume: 1,000, Start date: 04/07/20 7:34:00 CDT, Stop date: 10/15 8:34:00 CDT Start Date: 04/07/20 Stop Date: 04/07/20 Status: Completed latanoprost ophthalmic 1 drp, Route: BOTH EYES, Bedtime, Drug form: SOLN, Start date: 04/07/20 21:00:00 CDT, Duration: 30 day, Stop date: 05/06/20 21:00:00 CDT, 0 Start Date: 04/07/20 Stop Date: 04/13/20 Status: Discontinued levothyroxine 100 microgram, 1 tab, Route: PO, Drug form: TAB, Q6AM, Dosing Weight 99.2, kg, S tart date: 04/08/20 6:00:00 CDT, Duration: 30 day, Stop date: 05/07/20 6:00:00 C DT, 0 Start Date: 04/08/20 Stop Date: 04/13/20 Status: Discontinued levothyroxine 100 mcg (0.1 mg) oral tablet 100 microgram = 1 tab, PO, Daily, 0 Refill(s) Start Date: 04/07/20 Status: Ordered lidocaine (ANES) Route: IV, Drug form: INJ, ONCE, Stop date: 04/07/20 9:28:00 CDT Start Date: 04/07/20 Stop Date: 04/07/20 Status: Completed lidocaine 1% 50 mg, 5 mL, Route: INTRADERM, Drug Form: INJ, Dosing Weight 99.091, kg, ONCALL, For PICC line insertion., Start date: 04/09/20 10:00:00 CDT, Duration: 1 day, S top date: 04/10/20 9:59:00 CDT, 0 Notes: (Same as: Xylocaine) Start Date: 04/09/20 Stop Date: 04/13/20 Status: Discontinued liothyronine 5 microgram, 1 tab, Route: PO, Drug form: TAB, Q6AM, Dosing Weight 99.2, kg, Sta rt date: 04/08/20 6:00:00 CDT, Duration: 30 day, Stop date: 05/07/20 6:00:00 CDT , 0 Notes: (Same as: Cytomel) Start Date: 04/08/20 Stop Date: 04/13/20 Status: Discontinued liothyronine 5 mcg oral tablet 5 microgram = 1 tab, PO, Daily, 0 Refill(s) Start Date: 04/07/20 Status: Ordered Lovenox 30 mg, 0.3 mL, Route: SUB-Q, Drug form: INJ, [id number], Dosing Weight 99.091, kg, Start date: 04/08/20 9:00:00 CDT, Duration: 30 day, Stop date: 05/07/20 21:00:00 CDT, 0 Notes: (Same as: Lovenox) Start Date: 04/08/20 Stop Date: 04/13/20 Status: Discontinued methadone 20 mg + empty container 1 ea Route: IV, Drug form: INJ, ONCE, Dosing Weight 99.2, kg, Start date: 04/07/20 7: 42:00 CDT, Stop date: 04/07/20 7:42:00 CDT, 0 Notes: (Same as: Dolophine) Start Date: 04/07/20 Stop Date: 04/08/20 Status: Completed methenamine hippurate 25 gm, Route: PO, QAM & PM, Dosing Weight 99.2, kg, Start date: 04/07/20 17:00:00 CDT, Duration: 30 day, Stop date: 05/07/20 8:30:00 CDT, ABX Indication: Skin/Soft Tissue Infection Start Date: 04/07/20 Stop Date: 04/07/20 Status: Canceled methenamine hippurate 25 gm, PO, QAM & PM, 0 Refill(s) Start Date: 04/03/20 Stop Date: 04/07/20 Status: Discontinued methenamine hippurate 1 g oral tablet 0.5 gm = 0.5 tab, PO, BID, 0 Refill(s) Start Date: 04/07/20 Status: Ordered metolazone 5 mg oral tablet 5 mg, 1 tab, Route: PO, Drug form: TAB, Daily, Dosing Weight 99.2, kg, PRN Edema , Start date: 04/07/20 8:51:00 CDT, Duration: 30 day, Stop date: 05/07/20 8:50:0 0 CDT, 0 Notes: (Same as: Zaroxolyn) Start Date: 04/07/20 Stop Date: 04/13/20 Status: Discontinued metoprolol tartrate 12.5 mg, 0.5 tab, Route: PO, Drug form: TAB, QAM and Bedtime, Start date: 21:00:00 CDT, Duration: 30 day, Stop date: 05/07/20 9:00:00 CDT, 0 Start Date: 04/07/20 Stop Date: 04/13/20 Status: Discontinued metoprolol tartrate 25 mg oral tablet 12.5 mg = 0.5 tab, PO, BID, 0 Refill(s) Start Date: 04/07/20 Status: Ordered MiraLax 17 gm, Route: PO, Drug form: PWDR, Daily, Dosing Weight 99.091, kg, Start date: 04/08/20 14:47:00 CDT, Duration: 30 day, Stop date: 05/08/20 9:00:00 CDT, 0 Notes: Dissolve in 8 oz of water or juice.(Same as: Miralax) Start Date: 04/08/20 Stop Date: 04/13/20 Status: Discontinued Mirapex 0.25 mg oral tablet 0.25 mg = 1 tab, PO, Bedtime, 0 Refill(s) Start Date: 04/07/20 Status: Ordered Mucus Relief Sinus 400 mg =, PO, BID, 0 Refill(s) Start Date: 04/07/20 Status: Ordered Myrbetriq 50 mg oral tablet, extended release 50 mg = 1 tab, PO, QPM, # 30 tab, 0 Refill(s) Start Date: 04/07/20 Status: Ordered Myrbetriq 50 mg oral tablet, extended release 50 mg, 1 tab, Route: PO, Drug form: ERTAB, Daily, Dosing Weight 99.2, kg, Start date: 04/07/20 9:00:00 CDT, Duration: 30 day, Stop date: 05/06/20 9:00:00 CDT, 0 Notes: (Same as: Myrbetriq ER) Non-Formulary Start Date: 04/07/20 Stop Date: 04/13/20 Status: Discontinued norepinephrine (ANES) Route: IV, Drug form: INJ, ONCE, Stop date: 04/07/20 10:18:00 CDT Start Date: 04/07/20 Stop Date: 04/07/20 Status: Completed ondansetron 4 mg, 2 mL, Route: IVP, Drug form: INJ, Q8H, Dosing Weight 99.2, kg, PRN Nausea & Vomiting, Start date: 04/07/20 8:11:00 CDT, Duration: 30 day, Stop date: 05/07/20 8:10:00 CDT, 0 Notes: (Same as: Zofran) MEDICATION WASTE Product Size: 4 mgProduct Was chaparro: ___ mg Start Date: 04/07/20 Stop Date: 04/13/20 Status: Discontinued phenylephrine (ANES) Route: IV, Drug form: INJ, ONCE, Stop date: 04/07/20 9:12:00 CDT Start Date: 04/07/20 Stop Date: 04/07/20 Status: Completed Plavix 75 mg oral tablet 75 mg = 1 tab, PO, Daily, 0 Refill(s) Start Date: 04/07/20 Status: Ordered potassium chloride 20 mEq, 1 tab, Route: PO, Drug form: ERTAB, Daily, Dosing Weight 99.2, kg, Start date: 04/08/20 9:00:00 CDT, Duration: 30 day, Stop date: 05/07/20 9:00:00 CDT, 0 Start Date: 04/08/20 Stop Date: 04/13/20 Status: Discontinued potassium chloride 40 mEq, 30 mL, Route: PO, Drug form: LIQ, ONCE, Dosing Weight 99.091, kg, Start date: 04/08/20 11:27:00 CDT, Stop date: 04/08/20 11:27:00 CDT, 0 Notes: (Same as: Potassium Chloride) Start Date: 04/08/20 Stop Date: 04/08/20 Status: Completed potassium chloride 10 mEq, 50 mL, Route: IVPB, Drug form: INJ, Q1H, Dosing Weight 99.091, kg, Total Dose = 20 meq, Start date: 04/08/20 12:00:00 CDT, Duration: 2 doses or times, S top date: 04/08/20 13:00:00 CDT, Peripheral Line, 0 Notes: (Same as: KCL) Infuse over 2 hours. Start Date: 04/08/20 Stop Date: 04/08/20 Status: Completed potassium chloride 20 mEq oral tablet, extended release (KCL) 20 mEq = 1 tab, PO, Daily, # 30 tab, 3 Refill(s) Start Date: 04/07/20 Status: Ordered potassium chloride 20 mEq/15 mL oral liquid (KCL) 40 mEq, 30 mL, Route: PO, Drug form: LIQ, ONCE, Dosing Weight 99.091, kg, Start date: 04/08/20 16:22:00 CDT, Stop date: 04/08/20 16:22:00 CDT, 0 Notes: (Same as: Potassium Chloride) Start Date: 04/08/20 Stop Date: 04/08/20 Status: Completed pramipexole 0.25 mg, 1 tab, Route: PO, Drug form: TAB, QPM, Dosing Weight 99.2, kg, Start da te: 04/07/20 17:00:00 CDT, Duration: 30 day, Stop date: 05/06/20 17:00:00 CDT, 0 Notes: (Same as: Mirapex) Start Date: 04/07/20 Stop Date: 04/13/20 Status: Discontinued predniSONE 10 mg oral tablet 10 mg = 1 tab, PO, QPM, 0 Refill(s) Start Date: 04/07/20 Status: Ordered predniSONE 20 mg oral tablet 20 mg = 1 tab, PO, QAM, 0 Refill(s) Start Date: 04/07/20 Status: Ordered propofol (ANES) Route: IV, Drug form: INJ, ONCE, Stop date: 04/07/20 9:28:00 CDT Start Date: 04/07/20 Stop Date: 04/07/20 Status: Completed rocuronium (ANES) Route: IV, Drug form: INJ, ONCE, Stop date: 04/07/20 9:28:00 CDT Start Date: 04/07/20 Stop Date: 04/07/20 Status: Completed rOPINIRole 0.5 mg, 1 tab, Route: PO, Drug form: TAB, BID-06-08, Dosing Weight 99.2, kg, Sta rt date: 04/08/20 8:00:00 CDT, Duration: 30 day, Stop date: 05/07/20 13:00:00 CD T, 0 Notes: (Same as: Requip) Start Date: 04/08/20 Stop Date: 04/13/20 Status: Discontinued rOPINIRole 0.5 mg oral tablet 0.5 mg = 1 tab, PO, BID, 0 Refill(s) Start Date: 04/07/20 Status: Ordered Saline Flush 0.9% 10 ml, Route: IVP, Drug Form: INJ, Dosing Weight 99.2, kg, Q12H, Start date: 10/15 9:00:00 CDT, Duration: 30 day, Stop date: 05/06/20 21:00:00 CDT, 0 Notes: Same as: BD Posiflush Sterile Start Date: 04/07/20 Stop Date: 04/09/20 Status: Discontinued Saline Flush 0.9% 10 ml, Route: IVP, Drug Form: INJ, Dosing Weight 99.2, kg, PRN, PRN Line Flush, Start date: 04/07/20 8:11:00 CDT, Duration: 30 day, Stop date: 05/07/20 8:10:00 CDT, 0 Notes: Same as: BD Posiflush Sterile Start Date: 04/07/20 Stop Date: 04/09/20 Status: Discontinued Saline Flush 0.9% 10 mL, Route: IVP, Drug Form: INJ, Dosing Weight 99.091, kg, Q8H, Start date: 16:00:00 CDT, Duration: 30 day, Stop date: 05/09/20 8:00:00 CDT, 0 Notes: (Same as: BD Posiflush) Start Date: 04/09/20 Stop Date: 04/13/20 Status: Discontinued Saline Flush 0.9% 10 mL, Route: IVP, Drug Form: INJ, Dosing Weight 99.091, kg, PRN, PRN Line Flush , Start date: 04/09/20 9:51:00 CDT, Duration: 30 day, Stop date: 05/09/20 9:50:0 0 CDT, 0 Notes: (Same as: BD Posiflush) Start Date: 04/09/20 Stop Date: 04/13/20 Status: Discontinued senna 8.6 mg, 1 tab, Route: PO, Drug Form: TAB, Dosing Weight 99.091, kg, BID, Start d ate: 04/08/20 17:00:00 CDT, Duration: 30 day, Stop date: 05/08/20 9:00:00 CDT, 0 Notes: (Same as: Senokot) Start Date: 04/08/20 Stop Date: 04/13/20 Status: Discontinued senna oral tablet 2 tab, PO, Bedtime, PRN for constipation, X 30 day, # 60 tab, 0 Refill(s) Start Date: 04/12/20 Stop Date: 05/12/20 Status: Ordered sertraline 50 mg, 1 tab, Route: PO, Drug form: TAB, QPM, Dosing Weight 99.2, kg, Start date : 04/07/20 17:00:00 CDT, Duration: 30 day, Stop date: 05/06/20 17:00:00 CDT, 0 Notes: (Same as: Zoloft) Start Date: 04/07/20 Stop Date: 04/13/20 Status: Discontinued sugammadex 500 mg, 5 mL, Route: IV, Drug form: JOHN NG, Priority: NOW, Start date: 10/15 9:06:00 CDT, Duration: 1 doses or times, Stop date: 04/07/20 9:11:00 CDT, 0 Notes: (Same as: Bridion) Start Date: 04/07/20 Stop Date: 04/07/20 Status: Deleted sugammadex 200 mg, 2 mL, Route: IV, Drug form: JOHN NG, Priority: NOW, Start date: 10/15 9:54:00 CDT, Duration: 1 doses or times, Stop date: 04/07/20 9:59:00 CDT, 0 Notes: (Same as: Bridion) Start Date: 04/07/20 Stop Date: 04/13/20 Status: Discontinued sugammadex (ANES) Route: IV, Drug form: SOLN, ONCE, Stop date: 04/07/20 10:24:00 CDT Start Date: 04/07/20 Stop Date: 04/07/20 Status: Completed tamsulosin 0.4 mg, 1 cap, Route: PO, Drug form: CAP, QAM & PM, Dosing Weight 99.2, kg, Start date: 04/07/20 17:00:00 CDT, Duration: 30 day, Stop date: 05/07/20 8:30:00 CDT, 0 Notes: (Same As: Flomax) "Do Not Crush" Start Date: 04/07/20 Stop Date: 04/13/20 Status: Discontinued tamsulosin 0.4 mg oral capsule 0.4 mg = 1 cap, PO, QAM & PM, # 90 cap, 0 Refill(s) Start Date: 04/03/20 Stop Date: 04/07/20 Status: Discontinued testosterone 200 mg, 1 mL, Route: IM, Drug form: INJ, Q14D, Dosing Weight 99.2, kg, Start hoang e: 04/12/20 9:00:00 CDT, Duration: 30 day, Stop date: 05/10/20 9:00:00 CDT, 0 Start Date: 04/12/20 Stop Date: 04/13/20 Status: Discontinued Testosterone Cypionate 200 mg/mL intramuscular solution 200 mg = 1 ml, IM, q2wk, 0 Refill(s) Start Date: 04/07/20 Status: Ordered vancomycin + Sodium Chloride 0.9% IV 250 mL 1.25 gm, Route: IVPB, [id number], Start date: 04/08/20 20:00:00 CDT, Duration: 10 d ay, Stop date: 04/17/20 20:00:00 CDT, ABX Indication: Skin/Soft Tissue Infection , 0 Notes: TIME CRITICAL MEDICATION(Same As: Vancocin)Infusion rate< 1000 mg: infuse over 1 [id number] - 1500 mg: infuse over 1.5 hoursVancomycin FOR IV SET [id number] - 2000 mg: infuse over 2 hours> 2001 mg: infuse over 2.5 hoursFor adult patients only: Round to nearest 250 mg per Medical Staff approval MEDICATION WASTE Product Size: 1000 mgProduct Wasted: 0 mg Start Date: 04/08/20 Stop Date: 04/13/20 Status: Discontinued vancomycin + Sodium Chloride 0.9% IV 500 mL 2,500 mg, Route: IVPB, ONCE, Start date: 04/07/20 15:21:00 CDT, Stop date: 04/07 15:21:00 CDT, ABX Indication: Skin/Soft Tissue Infection, 0 Notes: TIME CRITICAL MEDICATION(Same As: Vancocin)Infusion rate< 1000 mg: infuse over 1 [id number] - 1500 mg: infuse over 1.5 [id number] - 2000 mg: infuse over 2 hours> 2001 mg: infuse over 2.5 hoursFor adult patients only: Round to nearest 250 mg per Medical Staff approval MEDICATION WASTE Product Size: 1000 mgProduct Wasted: ___ mg Start Date: 04/07/20 Stop Date: 04/07/20 Status: Completed Vitamin B12 Methylcobalamin 5000 mcg sublingual tablet 10,000 microgram = 2 tab, PO, qWeek, 0 Refill(s) Start Date: 04/07/20 Status: Ordered Vitamin D3 2,000 IntlUnit, 2 tab, Route: PO, Drug form: TAB, Daily, Dosing Weight 99.2, kg, Start date: 04/07/20 9:00:00 CDT, Duration: 30 day, Stop date: 05/06/20 9:00:00 CDT, 0 Notes: Same as : Vitamin D3 Start Date: 04/07/20 Stop Date: 04/13/20 Status: Discontinued Vitamin D3 10,000 intl units oral capsule 20,000 IntlUnit = 2 cap, PO, QPM, 0 Refill(s) Start Date: 04/07/20 Status: Ordered WAL-MUCIL WAL-MUCIL, 8 cap, PO, QAM, Refill(s) 0 Start Date: 04/07/20 Status: Ordered Wal-Zyr 10 mg, PO, QPM, 0 Refill(s) Start Date: 04/03/20 Stop Date: 04/07/20 Status: Discontinued Wal-Zyr 10 mg oral tablet 10 mg = 1 tab, PO, Daily, 0 Refill(s) Start Date: 04/07/20 Status: Ordered Xalatan ophthalmic 0.005% solution 1 drp, QPM, 0 Refill(s) Start Date: 04/07/20 Status: Ordered Xanax 0.5 mg oral tablet 0.5 mg = 1 tab, PO, PRN, 0 Refill(s) Start Date: 04/07/20 Status: Ordered Zoloft 50 mg oral tablet 50 mg = 1 tab, PO, QPM, # 30 tab, 1 Refill(s) Start Date: 04/07/20 Status: Ordered Results 1 2 3 Most recent to oldest [Reference Range]: 6.1 K/CMM (04/08/20 10:22 AM) 6.6 K/CMM (04/03/20 2:17 PM) Neutrophils # [1.5-8.1 K/CMM] 0.8 K/CMM *LOW* (04/08/20 10:22 AM) 0.6 K/CMM *LOW* (04/03/20 2:17 PM) Lymphocytes # [1.0-5.5 K/CMM] 0.4 K/CMM (04/08/20 10:22 AM) 0.5 K/CMM (04/03/20 2:17 PM) Monocytes # [0.0-0.8 K/CMM] 0.1 K/CMM (04/03/20 2:17 PM) Eosinophils # [0.0-0.5 K/CMM] 1930 *NA* (04/11/20 7:33 PM) 2000 *NA* (04/09/20 7:42 PM) Vanco Tr TND 17.9 ug/ml *NA* (04/11/20 7:33 PM) 17.8 ug/ml *NA* (04/09/20 7:42 PM) Vanco Tr Normal (04/03/20 2:17 PM) Plt Morph [Normal] 37 mL/min/1.73m2 1 *NA* (04/10/20 4:59 AM) 32 mL/min/1.73m2 2 *NA* (04/09/20 5:57 AM) 34 mL/min/1.73m2 3 *NA* (04/08/20 10:22 AM) eGFR O POS *Unknown* (04/03/20 2:17 PM) ABO/Rh 1.0 (04/03/20 2:17 PM) A/G Ratio [0.7-1.6] Negative (04/03/20 2:17 PM) Antibody Scrn 3.3 g/dL *LOW* (04/03/20 2:17 PM) Albumin Lvl [3.5-5.0 g/dL] 105 unit/L (04/03/20 2:17 PM) Alk Phos [39-136 unit/L] 25 unit/L (04/03/20 2:17 PM) ALT [0-65 unit/L] 6.7 mEq/L *LOW* (04/10/20 4:59 AM) 15.1 mEq/L (04/09/20 5:57 AM) 9.8 mEq/L *LOW* (04/08/20 10:22 AM) AGAP [10.0-20.0 mEq/L] 1+ *ABN* (04/03/20 2:17 PM) Anisocyte [None Seen] 17 unit/L (04/03/20 2:17 PM) AST [0-37 unit/L] 41 *HI* (04/03/20 2:17 PM) B/C Ratio [6-25] 0.0 % (04/03/20 2:17 PM) Bands [0.0-11.0 %] 0.4 % (04/08/20 10:22 AM) Basophils [0.0-1.0 %] 64 mg/dL *HI* (04/10/20 4:59 AM) 69 mg/dL *HI* (04/09/20 5:57 AM) 65 mg/dL *HI* (04/08/20 10:22 AM) BUN [7-22 mg/dL] 9.2 mg/dL (04/10/20 4:59 AM) 9.5 mg/dL (04/09/20 5:57 AM) 9.1 mg/dL (04/08/20 10:22 AM) Calcium Lvl [8.5-10.5 mg/dL] 91 mEq/L *LOW* (04/10/20 4:59 AM) 91 mEq/L *LOW* (04/09/20 5:57 AM) 85 mEq/L *LOW* (04/08/20 10:22 AM) Chloride Lvl [95-109 mEq/L] 42 mEq/L 4 *CRIT* (04/10/20 4:59 AM) 35 mEq/L *HI* (04/09/20 5:57 AM) 43 mEq/L 5 *CRIT* (04/08/20 10:22 AM) CO2 [24-32 mEq/L] 1.77 mg/dL *HI* (04/10/20 4:59 AM) 2.00 mg/dL *HI* (04/09/20 5:57 AM) 1.88 mg/dL *HI* (04/08/20 10:22 AM) Creatinine Lvl [0.50-1.40 mg/dL] 23.6 mg/L *HI* (04/03/20 2:17 PM) CRP [<=2.9 mg/L] 0.3 % (04/08/20 10:22 AM) 1.0 % (04/03/20 2:17 PM) Eosinophils [0.0-4.0 %] 3.2 g/dL (04/03/20 2:17 PM) Globulin [2.7-4.2 g/dL] 108 mg/dL *HI* (04/10/20 4:59 AM) 136 mg/dL *HI* (04/09/20 5:57 AM) 194 mg/dL *HI* (04/08/20 10:22 AM) Glucose Lvl [70-99 mg/dL] 41.2 % *LOW* (04/08/20 10:22 AM) 42.7 % (04/03/20 2:17 PM) Hct [42.0-54.0 %] 12.8 g/dL *LOW* (04/08/20 10:22 AM) 13.5 g/dL *LOW* (04/03/20 2:17 PM) Hgb [14.0-18.0 g/dL] 8.1 % *HI* (04/03/20 2:17 PM) Hgb A1C [<=5.6 %] 3.7 mEq/L (04/10/20 4:59 AM) 4.1 mEq/L (04/09/20 5:57 AM) 2.8 mEq/L 6 *CRIT* (04/08/20 10:22 AM) Potassium Lvl [3.5-5.1 mEq/L] 0.0 % (04/03/20 2:17 PM) Atypical Lymphs [<=0.0 %] 11.0 % *LOW* (04/08/20 10:22 AM) 8.0 % *LOW* (04/03/20 2:17 PM) Lymphocytes [20.0-40.0 %] 27.0 pg (04/08/20 10:22 AM) 27.4 pg (04/03/20 2:17 PM) MCH [27.0-31.0 pg] 31.1 g/dL *LOW* (04/08/20 10:22 AM) 31.6 g/dL *LOW* (04/03/20 2:17 PM) MCHC [32.0-36.0 g/dL] 86.8 fL (04/08/20 10:22 AM) 86.8 fL (04/03/20 2:17 PM) MCV [80.0-94.0 fL] 1.0 % (04/03/20 2:17 PM) Metamyelocytes [0.0-1.0 %] 5.3 % (04/08/20 10:22 AM) 6.0 % (04/03/20 2:17 PM) Monocytes [2.0-12.0 %] 7.4 fL (04/08/20 10:22 AM) 7.7 fL (04/03/20 2:17 PM) MPV [7.4-10.4 fL] 1.0 % *HI* (04/03/20 2:17 PM) Myelocytes [<=0.0 %] 136 mEq/L (04/10/20 4:59 AM) 137 mEq/L (04/09/20 5:57 AM) 135 mEq/L (04/08/20 10:22 AM) Sodium Lvl [135-145 mEq/L] 1 /100WB *NA* (04/03/20 2:17 PM) NRBC 156 K/CMM (04/08/20 10:22 AM) 184 K/CMM (04/03/20 2:17 PM) Platelet [133-450 K/CMM] Slight *Unknown* (04/03/20 2:17 PM) Polychrom 83.0 % *HI* (04/08/20 10:22 AM) 83.0 % *HI* (04/03/20 2:17 PM) Segs [45.0-75.0 %] 6.5 g/dL (04/03/20 2:17 PM) Total Protein [6.4-8.4 g/dL] Not Detected (04/04/20 10:15 AM) Coronavirus (COVID-19) WILY [Not Detected] 4.74 M/CMM (04/08/20 10:22 AM) 4.91 M/CMM (04/03/20 2:17 PM) RBC [4.70-6.10 M/CMM] 20.1 % *HI* (04/08/20 10:22 AM) 19.5 % *HI* (04/03/20 2:17 PM) RDW [11.5-14.5 %] 5.0 minutes (04/03/20 2:17 PM) R-time [5.0-10.0 minutes] 1.4 minutes (04/03/20 2:17 PM) K-time [1.0-3.0 minutes] 67.5 degrees (04/03/20 2:17 PM) Angle [53.0-72.0 degrees] 65.7 mm (04/03/20 2:17 PM) Max Amp [50.0-70.0 mm] 9.6 K d/sc (04/03/20 2:17 PM) G-value [4.5-11.0 K d/sc] 0.0 % (04/03/20 2:17 PM) Ly30 [0.0-7.5 %] 1.6 (04/03/20 2:17 PM) Coag Index [-3.0-3.0] Thrombelastograph results are within ref erence ranges. These indicate adequate hemostasis. Note that TEG does not show effect of NSAIDs or P2Y12 inhibitors. CPT:45725 *NA* (04/03/20 2:17 PM) TEG Interp See Note (04/03/20 2:17 PM) TEG Data 0.5 mg/dL (04/03/20 2:17 PM) Bili Total [0.2-1.3 mg/dL] 16.5 ug/ml *NA* (04/08/20 5:28 PM) Vanco Lvl 7.3 K/CMM (04/08/20 10:22 AM) 7.9 K/CMM (04/03/20 2:17 PM) WBC [3.7-10.4 K/CMM] 1Result Comment: The eGFR is calculated using [...] be mul tiplied by the estimated BMI. 2Result Comment: The eGFR is calculated using the [...] be mul tiplied by the estimated BMI. 3Result Comment: The eGFR is calculated using the [...] be mul tiplied by the estimated BMI. 4Result Comment: Critical Result(s) called to Margarette Mathew at 04/10/2020 06:21 by . Read back OK. 5Result Comment: Critical Result(s) called to Filippo Gaona at 04/08/2020 11:27 by RG. Read back OK. 6Result Comment: Critical Result(s) called to Filippo Gaona at 04/08/2020 11:26 by RG. Read back OK. Immunizations Given and Recorded Vaccine Date Status Refusal Reason diphtheria/pertussis, acel/tetanus adult 10/16/19 Given Procedures Procedure Date Related Diagnosis Body Site Status Cystoscopy 08/25/18 Completed Complex uroflowmetry 03/30/18 Completed Ablation Completed Cataract surgery Completed Catheter replacement Completed Colonoscopy Completed Fusion1 Completed Operation Completed Operation Completed PCI - Percutaneous coronary intervention Complete d Prostate manipulation Completed Stent replacement Completed 1cervical fusion done on 09/11/[address] Nilo Adames Social History Social History Type Response Alcohol Never Substance Abuse Use: None. Smoking Status Former smoker; Ready to layla nge: No; Concerns about tobacco use in household: No; Exposure to Tobacco Smok e None; Cigarette Smoking Last 365 Days No; Reg Smoking Cessation Counseli ng No; Other Tobacco Frequency QUIT SMOKING 2011; 1 entered on: 04/14/20 1Quit smoking 2011 Assessment and Plan Extracted from: Title: Infection Admission H&P * Author: Adan Nielsen MD Date: 04/12/20 Impression and Plan Open wound left elbow closed by Plastic Surgery Discussed plans with patient and all questions answered Vanco trough is therapeutic Vancomycin 1250 mg q24 h Rx for 14 days Monitor blood work Vanco trough ,CBC ,BMP ,UA weekly ,fax report to my office [phone] Call [phone] for an apt in 2 weeks Extracted from: Title: Infection Admission H&P * Author: Adan Nielsen MD Date: 04/07/20 Impression and Plan Open wound left elbow closed by Plastic Surgery No cultures To discuss antibiotic Rx regarding need and duration
--- OUTSIDE RECORDS SUMMARY | 2020-06-12 21:16 | XMS REPORT | Summary of Care ---
Author Author [facility] Organization [facility] Address Unknown Phone Unavailable Encounter JOSSELIN White(LENY) [id number] Date(s): 11/10/19 - 11/11/19 [facility] [address] [employer] provided by [employer] [facility] [employer] [facility] [employer] [place] [address]- Discharge Disposition: Home or Self Care Attending Physician: hSeila Vásquez MD Admitting Physician: Sheila Vásquez MD Referring Physician: Sheila Vásquez MD Vital Signs 1 2 3 Most recent to oldest [Reference Range]: 175.26 cm (11/10/19 10:53 AM) Height 97.6 DegF (11/10/19 11:00 AM) Temperature Oral [96.4-99.1 DegF] 110/70 mmHg (11/11/19 10:00 AM) 146/86 mmHg *HI* (11/11/19 8:07 AM) 113/68 mmHg (11/11/19 6:00 AM) Blood Pressure [90-140/60-90 mmHg] 15 BRMIN (11/11/19 10:00 AM) 19 BRMIN (11/11/19 8:07 AM) 23 BRMIN *HI* (11/11/19 6:00 AM) Respiratory Rate [14-20 BRMIN] 94.091 kg (11/10/19 10:53 AM) Weight 30.63 m2 (11/10/19 10:53 AM) Body Mass Index Problem List Condition Effective Dates Status Health Status Informan t Afib(Confirmed) Resolved Arthritis(Confirmed) Resolved Arthropathy(Confirme Resolved d) watchman(Confirmed) [...] Reactions, Alerts No Known Medication Allergies Medications acetaminophen-codeine #3 2 tab, Route: PO, Drug Form: TAB, Dosing Weight 94.091, kg, Q6H, PRN Pain Score 7-10, Start date: 11/10/19 15:13:00 DECAL CUTTER, Duration: 30 day, Stop date: 12/10/19 1 5:12:00 DECAL CUTTER, 0 Notes: Do not exceed 4gm/day of acetaminophen. (Same as: Tylenol with Codeine # 3) Start Date: 11/10/19 Stop Date: 11/11/19 Status: Discontinued acetaminophen-codeine 300 mg-30 mg oral tablet 1 tab, PO, Q6H, PRN Pain Score 7-10, # 30 tab, 0 Refill(s) Start Date: 11/11/19 Stop Date: 11/21/19 Status: Ordered albuterol 0.083% inhalation solution 2.5 mg, 3.01 mL, Route: NEB, Drug form: SOLN, RBID, Dosing Weight 94.091, kg, St art date: 11/10/19 20:00:00 DECAL CUTTER, Duration: 30 day, Stop date: 12/10/19 8:00:[address], 0 Notes: SEE RT DOCUMENTATION (Same as: Proventil) Start Date: 11/10/19 Stop Date: 11/11/19 Status: Discontinued albuterol 0.083% inhalation solution 2.5 mg = 3 mL, NEB, BID, am/pm, 0 Refill(s) Start Date: 11/10/19 Status: Ordered allopurinol 300 mg, 1 tab, Route: PO, Drug form: TAB, Daily, Dosing Weight 94.091, kg, Start date: 11/11/19 9:00:00 DECAL CUTTER, Duration: 30 day, Stop date: 12/10/19 9:00:00 DECAL CUTTER, 0 Notes: (Same as: Zyloprim) Start Date: 11/11/19 Stop Date: 11/11/19 Status: Discontinued ALPRAZOLam 0.5 mg oral tablet 0.5 mg, 1 tab, Route: PO, Drug form: TAB, BID, Dosing Weight 94.091, kg, PRN as needed for anxiety, Start date: 11/10/19 15:14:00 DECAL CUTTER, Duration: 30 day, Stop da te: 12/10/19 15:13:00 DECAL CUTTER, 0 Notes: With food or milk(Same as: Xanax) Start Date: 11/10/19 Stop Date: 11/11/19 Status: Discontinued ANES diphenhydrAMINE 12.5 mg, 0.25 mL, Route: IVP, Drug form: INJ, Q6H, Dosing Weight 94.091, kg, PRN Itching, Start date: 11/10/19 13:56:00 DECAL CUTTER, Duration: 30 day, Stop date: 13:55:00 DECAL CUTTER, 0 Notes: (Same as: Benadryl) Start Date: 11/10/19 Stop Date: 11/11/19 Status: Discontinued ANES fentaNYL 25 microgram, 0.5 mL, Route: IVP, Drug form: INJ, Q5Min, Dosing Weight 94.091, k g, PRN Pain Score 4-6, Priority: Routine, Start date: 11/10/19 13:56:00 DECAL CUTTER, Dur ation: 4 doses or times, Stop date: Limited # of times, 0 Notes: (Same as: Sublimaze) Preservative free. Start Date: 11/10/19 Stop Date: 11/11/19 Status: Discontinued ANES flumazenil 0.2 mg, 2 mL, Route: IVP, Drug form: INJ, PRN, Dosing Weight 94.091, kg, PRN Christian zodiazepine Reversal, Initial dose, Start date: 11/10/19 13:56:00 DECAL CUTTER, Duration: 30 day, Stop date: 12/10/19 13:55:00 DECAL CUTTER, 0 Notes: (Same as: Romazicon) Start Date: 11/10/19 Stop Date: 11/11/19 Status: Discontinued ANES HYDROmorphone 0.5 mg, 0.25 mL, Route: IVP, Drug form: INJ, Q5Min, Dosing Weight 94.091, kg, ND N Pain Score 7-10, Start date: 11/10/19 13:56:00 DECAL CUTTER, Duration: 4 doses or times , Stop date: Limited # of times, 0 Notes: Same as Dilaudid Start Date: 11/10/19 Stop Date: 11/11/19 Status: Discontinued ANES naloxone 0.4 mg, 1 mL, Route: IVP, Drug form: INJ, Q2MIN, Dosing Weight 94.091, kg, PRN N arcotic Reversal, Start date: 11/10/19 13:56:00 DECAL CUTTER, Duration: 8 doses or times, Stop date: Limited # of times, 0 Notes: Same as Narcan Start Date: 11/10/19 Stop Date: 11/11/19 Status: Discontinued ANES ondansetron 4 mg, 2 mL, Route: IVP, Drug form: INJ, ONCE, Dosing Weight 94.091, kg, PRN Naus ea & Vomiting, Start date: 11/10/19 13:56:00 DECAL CUTTER, 0 Notes: (Same as: Amisha) MEDICATION WASTE Product Size: 4 mgProduct Was chaparro: ___ mg Start Date: 11/10/19 Stop Date: 11/11/19 Status: Discontinued aspirin 81 mg tablet, enteric coated 81 mg, 1 tab, Route: PO, Drug form: ECTAB, Daily, Dosing Weight 94.091, kg, Star t date: 11/11/19 9:00:00 DECAL CUTTER, Duration: 30 day, Stop date: 12/10/19 9:00:00 DECAL CUTTER, 0 Notes: Do not crush or chew.(Same As: Ecotrin) Start Date: 11/11/19 Stop Date: 11/11/19 Status: Discontinued budesonide 0.5 mg/2 mL inhalation suspension 0.5 mg, 2 mL, Route: NEB, Drug form: SUSP, RDaily, Dosing Weight 94.091, kg, Sta rt date: 11/11/19 8:00:00 DECAL CUTTER, Duration: 30 day, Stop date: 12/10/19 8:00:00 DECAL CUTTER , 0 Notes: (Same As: Pulmicort) Start Date: 11/11/19 Stop Date: 11/11/19 Status: Discontinued bumetanide 2 mg, 2 tab, Route: PO, Drug form: TAB, Daily, Dosing Weight 94.091, kg, Start d ate: 11/11/19 9:00:00 DECAL CUTTER, Duration: 30 day, Stop date: 12/10/19 9:00:00 DECAL CUTTER, 0 Notes: (Same As: Bumex) Start Date: 11/11/19 Stop Date: 11/11/19 Status: Discontinued ceFAZolin (ANES) Route: IV, Drug form: INJ, ONCE, Stop date: 11/10/19 14:34:00 DECAL CUTTER Start Date: 11/10/19 Stop Date: 11/10/19 Status: Completed clobetasol topical 0.05% ointment 1 appl, Route: TOP, Daily, Drug form: OINT, Start date: 11/11/19 9:00:00 DECAL CUTTER, Du ration: 30 day, Stop date: 12/10/19 9:00:00 DECAL CUTTER, 0 Notes: (clobetasol propionate 0.05% 15 gm top OIN) (Same As: Temovate) Start Date: 11/11/19 Stop Date: 11/11/19 Status: Discontinued clopidogrel 75 mg, 1 tab, Route: PO, Drug form: TAB, Daily, Dosing Weight 94.091, kg, Start date: 11/11/19 9:00:00 DECAL CUTTER, Duration: 30 day, Stop date: 12/10/19 9:00:00 DECAL CUTTER, 0 Notes: (Same As: Plavix) Start Date: 11/11/19 Stop Date: 11/11/19 Status: Discontinued colchicine 0.6 mg, 1 tab, Route: PO, Drug form: TAB, Daily, Dosing Weight 94.091, kg, Start date: 11/11/19 9:00:00 DECAL CUTTER, Duration: 30 day, Stop date: 12/10/19 9:00:00 DECAL CUTTER, 0 Start Date: 11/11/19 Stop Date: 11/11/19 Status: Discontinued Dilaudid 1 mg, 0.5 mL, Route: IVP, Drug form: INJ, ONCE, Dosing Weight 94.091, kg, Priori ty: STAT, Start date: 11/11/19 4:46:00 DECAL CUTTER, Stop date: 11/11/19 4:46:00 DECAL CUTTER, 0 Notes: Same as Dilaudid Start Date: 11/11/19 Stop Date: 11/11/19 Status: Completed Dulcolax Laxative 10 mg, 1 supp, Route: ND, Drug form: SUPP, Daily, Dosing Weight 94.091, kg, PRN Constipation, Start date: 11/10/19 15:14:00 DECAL CUTTER, Duration: 30 day, Stop date: 15:13:00 DECAL CUTTER, 0 Notes: (Same As: Dulcolax, Bisco-Lax) Start Date: 11/10/19 Stop Date: 11/11/19 Status: Discontinued fentaNYL 25 microgram, Route: IV, ONCE, Dosing Weight 94.091, kg, Start date: 11/11/19 4: 15:00 DECAL CUTTER, Stop date: 11/11/19 4:15:00 DECAL CUTTER Start Date: 11/11/19 Stop Date: 11/11/19 Status: Completed fentaNYL (ANES) Route: IV, Drug form: INJ, ONCE, Stop date: 11/10/19 14:18:00 DECAL CUTTER Start Date: 11/10/19 Stop Date: 11/10/19 Status: Completed ferrous sulfate 325 mg, 1 tab, Route: PO, Drug form: ECTAB, Daily, Dosing Weight 94.091, kg, Sta rt date: 11/11/19 9:00:00 DECAL CUTTER, Duration: 30 day, Stop date: 12/10/19 9:00:00 DECAL CUTTER , 0 Notes: Give with food. "Do Not Crush" Start Date: 11/11/19 Stop Date: 11/11/19 Status: Discontinued ferrous sulfate 325 mg oral enteric coated tablet 325 mg = 1 tab, PO, Daily, 0 Refill(s) Start Date: 11/10/19 Status: Ordered folic acid 0.4 mg, 1 tab, Route: PO, Drug form: TAB, BID, Dosing Weight 94.091, kg, Start d ate: 11/10/19 21:00:00 DECAL CUTTER, Duration: 30 day, Stop date: 12/10/19 9:00:00 DECAL CUTTER, 0 Start Date: 11/10/19 Stop Date: 11/11/19 Status: Discontinued glimepiride 1 mg, 1 tab, Route: PO, Drug form: TAB, Breakfast, Dosing Weight 94.091, kg, Sta rt date: 11/11/19 8:00:00 DECAL CUTTER, Duration: 30 day, Stop date: 12/10/19 8:00:00 DECAL CUTTER Start Date: 11/11/19 Stop Date: 11/11/19 Status: Discontinued glimepiride 1 mg oral tablet 1 mg = 1 tab, PO, Breakfast, 0 Refill(s) Start Date: 11/10/19 Status: Ordered Glucotrol 2.5 mg, 0.5 tab, Route: PO, Drug form: TAB, Before Breakfast, Start date: 10:00:00 DECAL CUTTER, Duration: 30 day, Stop date: 12/11/19 7:30:00 DECAL CUTTER, 0 Start Date: 11/11/19 Stop Date: 11/11/19 Status: Discontinued glycopyrrolate (ANES) Route: IV, Drug form: INJ, ONCE, Stop date: 11/10/19 15:12:00 DECAL CUTTER Start Date: 11/10/19 Stop Date: 11/10/19 Status: Completed heparin (ANES) Route: IV, Drug form: INJ, ONCE, Stop date: 11/10/19 14:39:00 DECAL CUTTER Start Date: 11/10/19 Stop Date: 11/10/19 Status: Completed latanoprost ophthalmic 1 drp, Route: BOTH EYES, QPM, Drug form: SOLN, Start date: 11/10/19 17:00:00 DECAL CUTTER , Duration: 30 day, Stop date: 12/09/19 17:00:00 DECAL CUTTER, 0 Notes: Keep refrigerated. (Same as:Xalatan)Opened bottle may be stored at room t emperature for 6 weeks Start Date: 11/10/19 Stop Date: 11/11/19 Status: Discontinued levothyroxine 100 microgram, 1 tab, Route: PO, Drug form: TAB, Q630AM, Dosing Weight 94.091, k g, Start date: 11/11/19 6:30:00 DECAL CUTTER, Duration: 30 day, Stop date: 12/10/19 6:30: 00 DECAL CUTTER, 0 Start Date: 11/11/19 Stop Date: 11/11/19 Status: Discontinued lidocaine (ANES) Route: IV, Drug form: INJ, ONCE, Stop date: 11/10/19 14:18:00 DECAL CUTTER Start Date: 11/10/19 Stop Date: 11/10/19 Status: Completed liothyronine 5 microgram, 1 tab, Route: PO, Drug form: TAB, Q630AM, Dosing Weight 94.091, kg, Start date: 11/11/19 6:30:00 DECAL CUTTER, Duration: 30 day, Stop date: 12/10/19 6:30:00 DECAL CUTTER, 0 Notes: (Same as: Cytomel) Start Date: 11/11/19 Stop Date: 11/11/19 Status: Discontinued methenamine hippurate 1 g oral tablet 1 gm = 1 tab, PO, BID, 0 Refill(s) Start Date: 11/10/19 Stop Date: 11/20/19 Status: Ordered metolazone 5 mg oral tablet 5 mg = 1 tab, PO, Daily, 0 Refill(s) Start Date: 11/10/19 Status: Ordered metolazone 5 mg oral tablet 5 mg, 1 tab, Route: PO, Drug form: TAB, Daily, Dosing Weight 94.091, kg, Start d ate: 11/11/19 9:00:00 DECAL CUTTER, Duration: 30 day, Stop date: 12/10/19 9:00:00 DECAL CUTTER, 0 Notes: (Same as: Zaroxolyn) Start Date: 11/11/19 Stop Date: 11/11/19 Status: Discontinued Myrbetriq 50 mg oral tablet, extended release 50 mg, 1 tab, Route: PO, Drug form: ERTAB, Daily, Dosing Weight 94.091, kg, Star t date: 11/11/19 9:00:00 DECAL CUTTER, Duration: 30 day, Stop date: 12/10/19 9:00:00 DECAL CUTTER Start Date: 11/11/19 Stop Date: 11/11/19 Status: Discontinued neostigmine (ANES) Route: IV, Drug form: INJ, ONCE, Stop date: 11/10/19 15:12:00 DECAL CUTTER Start Date: 11/10/19 Stop Date: 11/10/19 Status: Completed norepinephrine (ANES) Route: IV, Drug form: INJ, ONCE, Stop date: 11/10/19 14:39:00 DECAL CUTTER Start Date: 11/10/19 Stop Date: 11/10/19 Status: Completed norepinephrine (ANES) 10 microgram Route: IV, Drug form: INJ, Start date: 11/10/19 13:51:00 DECAL CUTTER, Stop date: 0 14:51:00 DECAL CUTTER Start Date: 11/10/19 Stop Date: 11/10/19 Status: Completed Oxygen Oxygen, 1 btl, MISC, Bedtime, Refill(s) 0 Start Date: 11/11/19 Status: Ordered Oxygen Oxygen, 1 btl, Route: MISC, Bedtime, 11/10/19 21:00:00 DECAL CUTTER, Duration: 30 day, St op date: 12/09/19 21:00:00 DECAL CUTTER Start Date: 11/10/19 Stop Date: 11/11/19 Status: Discontinued potassium chloride 20 mEq, 1 tab, Route: PO, Drug form: ERTAB, BID, Dosing Weight 94.091, kg, Start date: 11/10/19 17:00:00 DECAL CUTTER, Duration: 30 day, Stop date: 12/10/19 9:00:00 DECAL CUTTER, 0 Notes: (Same as: K-Dur )"Do Not Crush" Give with food and full glass of water For patients unable to swallow tablet, dissolve in one half glass of water. Allo w about 2 minutes for the tablets to disintegrate. Stir before giving to prepare slurry and administer.Please exclude Patients with feeding tube less than 14 [place] Citizen (Dobhoff, J-tube etc) and pediatric and patients. Start Date: 11/10/19 Stop Date: 11/11/19 Status: Discontinued pramipexole 0.25 mg, 2 tab, Route: PO, Drug form: TAB, Bedtime, Dosing Weight 94.091, kg, St art date: 11/10/19 21:00:00 DECAL CUTTER, Duration: 30 day, Stop date: 12/09/19 21:00:00 DECAL CUTTER Start Date: 11/10/19 Stop Date: 11/11/19 Status: Discontinued predniSONE 10 mg, 1 tab, Route: PO, Drug form: TAB, Daily, Dosing Weight 94.091, kg, Start date: 11/11/19 9:00:00 DECAL CUTTER, Duration: 30 day, Stop date: 12/10/19 9:00:00 DECAL CUTTER, 0 Notes: (Same as: PredniSONE) Take with food. Start Date: 11/11/19 Stop Date: 11/11/19 Status: Discontinued predniSONE 10 mg oral tablet 10 mg = 1 tab, PO, Daily, 3 Refill(s) Start Date: 11/10/19 Stop Date: 12/10/19 Status: Ordered ProAir HFA ProAir HFA, 1 - 2 puffs, PO, Daily, Refill(s) 0 Start Date: 11/11/19 Status: Ordered ProAir HFA ProAir HFA, 1 - 2 puffs, Route: PO, Daily, 11/11/19 9:00:00 DECAL CUTTER, Duration: 30 da y, Stop date: 12/10/19 9:00:00 DECAL CUTTER Start Date: 11/11/19 Stop Date: 11/11/19 Status: Discontinued ProAir HFA 90 mcg/inh inhalation aerosol with adapter 180 microgram = 2 puff, INHALATION, Daily, 0 Refill(s) Start Date: 11/11/19 Status: Ordered ProAir HFA 90 mcg/inh inhalation aerosol with adapter 180 microgram, 2 puff, Route: INHALATION, Drug Form: AERO/A, Dosing Weight 94.09 1, kg, Daily, Start date: 11/11/19 9:00:00 DECAL CUTTER, Duration: 30 day, Stop date: 9:00:00 DECAL CUTTER Start Date: 11/11/19 Stop Date: 11/11/19 Status: Discontinued propofol (ANES) Route: IV, Drug form: INJ, ONCE, Stop date: 11/10/19 14:34:00 DECAL CUTTER Start Date: 11/10/19 Stop Date: 11/10/19 Status: Completed protamine (ANES) Route: IV, Drug form: INJ, ONCE, Stop date: 11/10/19 15:12:00 DECAL CUTTER Start Date: 11/10/19 Stop Date: 11/10/19 Status: Completed rocuronium (ANES) Route: IV, Drug form: INJ, ONCE, Stop date: 11/10/19 14:18:00 DECAL CUTTER Start Date: 11/10/19 Stop Date: 11/10/19 Status: Completed rOPINIRole 0.5 mg, Route: PO, Drug form: TAB, Bedtime, Dosing Weight 94.091, kg, Start date : 11/10/19 21:00:00 DECAL CUTTER, Duration: 30 day, Stop date: 12/09/19 21:00:00 DECAL CUTTER Start Date: 11/10/19 Stop Date: 11/11/19 Status: Discontinued Saline Flush 0.9% 10 ml, Route: MISC, Drug Form: INJ, Dosing Weight 94.091, kg, Q12H, Start date: 11/10/19 21:00:00 DECAL CUTTER, Duration: 30 day, Stop date: 12/10/19 9:00:00 DECAL CUTTER, 0 Notes: (Same as: BD Posiflush) Start Date: 11/10/19 Stop Date: 11/11/19 Status: Discontinued Saline Flush 0.9% 10 ml, Route: MISC, Drug Form: INJ, Dosing Weight 94.091, kg, PRN, PRN Line Flus h, Start date: 11/10/19 15:13:00 DECAL CUTTER, Duration: 30 day, Stop date: 12/10/19 15:1 2:00 DECAL CUTTER, 0 Notes: (Same as: BD Posiflush) Start Date: 11/10/19 Stop Date: 11/11/19 Status: Discontinued sertraline 50 mg, 1 tab, Route: PO, Drug form: TAB, Daily, Dosing Weight 94.091, kg, Start date: 11/11/19 9:00:00 DECAL CUTTER, Duration: 30 day, Stop date: 12/10/19 9:00:00 DECAL CUTTER, 0 Notes: (Same as: Zoloft) Start Date: 11/11/19 Stop Date: 11/11/19 Status: Discontinued Sodium Chloride 0.9% IV (ANES) 1000 mL Route: IV, Total Volume: 1,000, Start date: 11/10/19 13:29:00 DECAL CUTTER, Stop date: 14:29:00 DECAL CUTTER Start Date: 11/10/19 Stop Date: 11/10/19 Status: Completed Sodium Chloride 0.9% IV 1,000 mL 1,000 ml, Rate: 50 ml/hr, Infuse over: 20 hr, Route: IV, Dosing Weight 94.091 kg , Total Volume: 1,000, Start date: 11/10/19 10:52:00 DECAL CUTTER, Duration: 30 day, Stop date: 12/10/19 10:51:00 DECAL CUTTER, 2.16, m2, 0 Start Date: 11/10/19 Stop Date: 11/11/19 Status: Discontinued Toprol-XL 25 mg oral tablet, extended release 12.5 mg, 0.5 tab, Route: PO, Drug form: ERTAB, BID, Start date: 11/10/19 17:00:0 0 DECAL CUTTER, Duration: 30 day, Stop date: 12/10/19 9:00:00 DECAL CUTTER, 0 Notes: (Same as: Toprol XL) Do Not Crush12.5 mg = 1/2 x 25 mg TAB Start Date: 11/10/19 Stop Date: 11/11/19 Status: Discontinued Vitamin D3 1000 intl units oral tablet 2,000 IntlUnit, 2 tab, Route: PO, Drug form: TAB, Daily, Dosing Weight 94.091, k g, Start date: 11/11/19 9:00:00 DECAL CUTTER, Duration: 30 day, Stop date: 12/10/19 9:00: 00 DECAL CUTTER, 0 Notes: Same as : Vitamin D3 Start Date: 11/11/19 Stop Date: 11/11/19 Status: Discontinued Xarelto 15 mg, 1 tab, Route: PO, Drug form: TAB, Daily, Dosing Weight 94.091, kg, Start date: 11/11/19 9:00:00 DECAL CUTTER, Duration: 30 day, Stop date: 12/10/19 9:00:00 DECAL CUTTER, 0 Notes: (Same as: Xarelto)Administer with food Start Date: 11/11/19 Stop Date: 11/11/19 Status: Discontinued Results Most recent to 1 oldest [Reference Range]: Neutrophils # 9.3 K/CMM [1.5-8.1 K/CMM] *HI* (11/10/19 10:59 AM) Lymphocytes # 0.7 K/CMM [1.0-5.5 K/CMM] *LOW* (11/10/19 10:59 AM) Monocytes # [0.0-0.8 0.5 K/CMM K/CMM] (11/10/19 10:59 AM) eGFR 45 mL/min/1.73m2 1 *NA* (11/10/19 10:59 AM) RBC product Product available (11/10/19 10:59 AM) ABO/Rh O POS *Unknown* (11/10/19 10:59 AM) Antibody Scrn Negative (11/10/19 10:59 AM) AGAP [10.0-20.0 12.4 mEq/L mEq/L] (11/10/19 10:59 AM) Basophils [0.0-1.0 0.1 % %] (11/10/19 10:59 AM) BUN [7-22 mg/dL] 49 mg/dL *HI* (11/10/19 10:59 AM) Calcium Lvl 8.8 mg/dL [8.5-10.5 mg/dL] (11/10/19 10:59 AM) Chloride Lvl [95-109 93 mEq/L mEq/L] *LOW* (11/10/19 10:59 AM) CO2 [24-32 mEq/L] 36 mEq/L *HI* (11/10/19 10:59 AM) Creatinine Lvl 1.51 mg/dL [0.50-1.40 mg/dL] *HI* (11/10/19 10:59 AM) Glucose Lvl [70-99 168 mg/dL mg/dL] *HI* (11/10/19 10:59 AM) Hct [42.0-54.0 %] 39.2 % *LOW* (11/10/19 10:59 AM) Hgb [14.0-18.0 g/dL] 12.4 g/dL *LOW* (11/10/19 10:59 AM) INR [0.85-1.17] 1.04 (11/10/19 11:01 AM) Potassium Lvl 3.4 mEq/L [3.5-5.1 mEq/L] *LOW* (11/10/19 10:59 AM) Lymphocytes 6.8 % [20.0-40.0 %] *LOW* (11/10/19 10:59 AM) MCH [27.0-31.0 pg] 25.1 pg *LOW* (11/10/19 10:59 AM) MCHC [32.0-36.0 31.7 g/dL g/dL] *LOW* (11/10/19 10:59 AM) MCV [80.0-94.0 fL] 79.2 fL *LOW* (11/10/19 10:59 AM) Magnesium Lvl 2.1 mg/dL [1.8-2.4 mg/dL] (11/10/19 10:59 AM) Monocytes [2.0-12.0 4.4 % %] (11/10/19 10:59 AM) MPV [7.4-10.4 fL] 8.1 fL (11/10/19 10:59 AM) Sodium Lvl [135-145 138 mEq/L mEq/L] (11/10/19 10:59 AM) Platelet [133-450 213 K/CMM K/CMM] (11/10/19 10:59 AM) Segs [45.0-75.0 %] 88.7 % *HI* (11/10/19 10:59 AM) PT [12.0-14.7 13.6 seconds seconds] (11/10/19 11:01 AM) PTT [22.9-35.8 25.1 seconds seconds] (11/10/19 11:01 AM) RBC [4.70-6.10 4.95 M/CMM M/CMM] (11/10/19 10:59 AM) RDW [11.5-14.5 %] 19.6 % *HI* (11/10/19 10:59 AM) WBC [3.7-10.4 K/CMM] 10.5 K/CMM *HI* (11/10/19 10:59 AM) 1Result Comment: The eGFR is calculated [...] mul tiplied by the estimated BMI. Immunizations Given and Recorded Vaccine Date Status Refusal Reason diphtheria/pertussis, acel/tetanus adult 10/16/19 Given Procedures Procedure Date Related Diagnosis Body Site Status Cystoscopy 08/25/18 Completed Complex uroflowmetry 03/30/18 Completed Catheter replacement Completed Fusion1 Completed Prostate manipulation Completed Stent replacement Completed 1cervical fusion done on 09/11/[address] Nilo Adames Social History Social History Type Response Smoking Status Former smoker; Ready to layla nge: No; Concerns about tobacco use in household: No; Exposure to Tobacco Smok e None; Cigarette Smoking Last 365 Days No; Reg Smoking Cessation Counseli ng No; Other Tobacco Frequency QUIT SMOKING 2011; 1 entered on: 11/10/19 1Quit smoking 2011 Assessment and Plan Extracted from: Title: EP Discharge Summary Author: Sheila Vásquez MD Keshav e: 11/11/19 Discharge Plan Discharge Summary Plan Discharge Status: stable. Discharge instructions given: to patient. Discharge disposition: discharge to home. Prescriptions: continue same medications. Diagnosis Presence of Watchman left atrial appendage closure device ([id number] Z95.818, Working, Medical). Presence of Watchman left atrial appendage closure device ([id number] Z95.818, Working, Medical).
--- OUTSIDE RECORDS SUMMARY | 2020-06-12 21:16 | XMS REPORT | Summary of Care ---
Author Author [facility] Organization [facility] Address Unknown Phone Unavailable Encounter JOSSELIN White(LENY) [id number] Date(s): 04/04/20 - 04/04/20 [facility] [place] [address] [place] [address]- Discharge Disposition: Home or Self Care Attending Physician: Kelechi Sibley MD Vital Signs Most recent to 1 oldest [Reference Range]: Height 175.26 cm (04/04/20 2:05 PM) Weight 98.324 kg (04/04/20 2:05 PM) Body Mass Index 32.01 m2 (04/04/20 2:05 PM) Problem List Condition Effective Dates Status Health [...] Reaction Severity Status Lyrica1 Active 1RASH Medications Myrbetriq 50 mg oral tablet, extended release 50 mg = 1 tab, PO, Daily, # 90 tab, 0 Refill(s), Pharmacy: [id number] Start Date: 04/04/20 Status: Ordered Results Most recent to 1 oldest [Reference Range]: POC UA Bili Negative [Negative] *NA* (04/04/20 2:09 PM) POC UA Bld Negative [Negative] *NA* (04/04/20 2:09 PM) POC UA Color Yellow [Yellow] *NA* (04/04/20 2:09 PM) POC UA Glu [Negative 250 mg/dL mg/dL] *ABN* (04/04/20 2:09 PM) POC UA Ket [Negative Negative mg/dL mg/dL] *NA* (04/04/20 2:09 PM) POC UA LeukEst Trace [Negative] *ABN* (04/04/20 2:09 PM) POC UA Nit Negative [Negative] *NA* (04/04/20 2:09 PM) POC UA pH [5.0-8.0] 6.0 (04/04/20 2:09 PM) POC UA Prot Negative mg/dL [Negative mg/dL] *NA* (04/04/20 2:09 PM) POC UA SG [<=1.030] 1.015 (04/04/20 2:09 PM) POC UA Turbidity Clear [Clear] *NA* (04/04/20 2:09 PM) POC UA Uro [0.1-1.0 0.2 EU/dL EU/dL] (04/04/20 2:09 PM) Immunizations Given and Recorded Vaccine Date Status Refusal Reason diphtheria/pertussis, acel/tetanus adult 10/16/19 Given Procedures Procedure Date Related Diagnosis Body Site Status Measurement of post-voiding residual urine 04/04/20 Completed and/or bladder capacity by ultrasound, non-imaging Cystoscopy 08/25/18 Completed Complex uroflowmetry 03/30/18 Completed [...] Frequency QUIT SMOKING 2011; 1 entered on: 04/04/20 1Quit smoking 2011 Assessment and Plan No data available for this section
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
--- OUTSIDE RECORDS SUMMARY | 2020-06-12 21:16 | XMS REPORT | Summary of Care ---
Author Author [facility] Organization [facility] Address Unknown Phone Unavailable Encounter JOSSELIN White(LENY) [id number] Date(s): 04/13/20 - 04/20/20 [facility] [address] [place] [address]- Discharge Disposition: Home or Self Care Attending Physician: Fransisca Ferreira MD Admitting Physician: Abdulaziz Tobin MD Vital Signs 1 2 3 Most recent to oldest [Reference Range]: 175.26 cm (04/14/20 4:17 AM) 175.26 cm (04/13/20 10:03 AM) Height 104.227 kg (04/20/20 3:39 AM) 99.818 kg (04/19/20 4:53 AM) 105.653 kg (04/18/20 7:40 AM) Current Weight 98 DegF (04/20/20 11:14 AM) 97.9 DegF (04/20/20 7:54 AM) 98.0 DegF (04/20/20 5:02 AM) Temperature Oral [96.4-99.1 DegF] 120/79 mmHg (04/20/20 11:14 AM) 135/90 mmHg (04/20/20 7:54 AM) 135/89 mmHg (04/20/20 5:02 AM) Blood Pressure [90-140/60-90 mmHg] 18 BRMIN (04/20/20 11:14 AM) 18 BRMIN (04/20/20 7:54 AM) 18 BRMIN (04/19/20 7:22 PM) Respiratory Rate [14-20 BRMIN] 93 bpm (04/20/20 11:14 AM) 96 bpm (04/20/20 7:54 AM) 80 bpm (04/20/20 5:02 AM) Peripheral Pulse Rate [60-100 bpm] 107.004 kg (04/14/20 4:17 AM) 99.091 kg (04/13/20 10:03 AM) Weight 34.84 m2 (04/14/20 4:17 AM) 32.26 m2 (04/13/20 10:03 AM) Body Mass Index Problem List Condition [...] Reaction Severity Status Lyrica1 Active 1RASH Medications Attn:RN-Vancomycin trough reminder 04/19/20 @ 13:30 Attn:RN-Vancomycin trough reminder 04/19/20 @ 13:30, Attn:RN, Drug form: MISC, Route: MISC, ONCE, 04/19/20 13:00:00 CDT, Stop date: 04/19/20 13:00:00 CDT , 0 Start Date: 04/19/20 Stop Date: 04/19/20 Status: Completed acetaminophen 650 mg, 2 tab, Route: PO, Drug form: TAB, Q4H, Dosing Weight 99.091, kg, PRN Lacey n 1-3/Temp > 100.4 F, Start date: 04/13/20 13:03:00 CDT, Duration: 30 day, Stop date: 05/13/20 13:02:00 CDT, 0 Notes: Do not exceed 4 gm/day. (Same as: Tylenol) Start Date: 04/13/20 Stop Date: 04/20/20 Status: Discontinued albuterol 0.042% inhalation solution 1.25 mg, 3 mL, Route: NEB, Drug form: SOLN, RQID, Dosing Weight 99.091, kg, Star t date: 04/13/20 21:00:00 CDT, Duration: 30 day, Stop date: 05/13/20 19:00:00 CD T, 0 Notes: SEE RT DOCUMENTATION (Same as: Proventil) Start Date: 04/13/20 Stop Date: 04/20/20 Status: Discontinued allopurinol 300 mg, 1 tab, Route: PO, Drug form: TAB, QPM, Dosing Weight 107.004, kg, Start date: 04/19/20 17:00:00 CDT, Duration: 30 day, Stop date: 05/18/20 17:00:00 CDT, 0 Notes: (Same as: Zyloprim) Start Date: 04/19/20 Stop Date: 04/20/20 Status: Discontinued aspirin 81 mg tablet, enteric coated 81 mg, 1 tab, Route: PO, Drug form: ECTAB, Daily, Dosing Weight 107.004, kg, Sta rt date: 04/20/20 9:00:00 CDT, Duration: 30 day, Stop date: 05/19/20 9:00:00 CDT , 0 Notes: Do not crush or chew.(Same As: Ecotrin) Start Date: 04/20/20 Stop Date: 04/20/20 Status: Discontinued budesonide 0.5 mg/2 mL inhalation suspension 0.5 mg = 2 mL, NEB, BID, # 60 ea, 11 Refill(s) Start Date: 04/14/20 Status: Ordered budesonide 0.5 mg/2 mL inhalation suspension 0.5 mg, 2 mL, Route: NEB, Drug form: SUSP, RBID, Dosing Weight 107.004, kg, Star t date: 04/19/20 12:27:00 CDT, Duration: 30 day, Stop date: 05/19/20 8:00:00 CDT , 0 Notes: (Same As: Pulmicort) Start Date: 04/19/20 Stop Date: 04/20/20 Status: Discontinued bumetanide 1 mg oral tablet See Instructions, 3 tabs PO BID, 0 Refill(s) Start Date: 04/14/20 Status: Ordered Bumex 2 mg, Route: IVP, TID, Dosing Weight 99.091, kg, Start date: 04/14/20 9:00:00 CD T, Duration: 30 day, Stop date: 05/13/20 17:00:00 CDT Start Date: 04/14/20 Stop Date: 04/13/20 Status: Deleted Bumex 2 mg, 8 mL, Route: IVP, Drug form: INJ, TID, Dosing Weight 99.091, kg, Start keshav e: 04/13/20 17:00:00 CDT, Duration: 30 day, Stop date: 05/13/20 13:00:00 CDT, 0 Notes: (Same As: Bumex) Start Date: 04/13/20 Stop Date: 04/13/20 Status: Discontinued bupivacaine 0.9773mg daily via implanted pump, 0 Refill(s) Start Date: 04/14/20 Stop Date: 04/20/20 Status: Discontinued Cathflo Activase 2 mg injection 1 mg, 1 mL, Route: INJ, Drug form: INJ, ONCE, Dosing Weight 107.004, kg, Priorit y: STAT, Start date: 04/20/20 14:08:00 CDT, Stop date: 04/20/20 14:08:00 CDT, PI CC line (1 clotted lumen), 0 Notes: "Syringe for catheter clearance or interventional radiology use.Reconstit [place] each vial of Cathflo Activase with 2.2 ml Sterile Water resulting in a 1 mg/ ml solution. (Same as: Activase) MEDICATION WASTE Product Size: 2 mgProd uct Wasted: ___ mg Start Date: 04/20/20 Stop Date: 04/20/20 Status: Completed cefepime + Sodium Chloride 0.9% IV 100 mL 1 gm, Route: IVPB, [id number], Dosing Weight 99.091, kg, (CrCl >/= 50 ml/min), Start date: 04/14/20 12:00:00 CDT, Stop date: 05/13/20 12:00:00 CDT, ABX Indication: Skin/Soft Tissue Infection, 0 Notes: (Same As: Maxipime) MEDICATION WASTE Product Size: 1000 mgProduc t Wasted: ___ mg Start Date: 04/14/20 Stop Date: 04/20/20 Status: Discontinued cefepime + sterile water 10 mL 1 gm, Route: IVP, ONCE, Dosing Weight 99.091, kg, Priority: STAT, Start date: 10:12:00 CDT, Stop date: 04/13/20 10:12:00 CDT, ABX Indication: Bacteremi a, 0 Notes: (Same As: Maxipime) MEDICATION WASTE Product Size: 1000 mgProduc t Wasted: ___ mg Start Date: 04/13/20 Stop Date: 04/13/20 Status: Completed Dextrose 50% Syringe (D50W) 12.5 gm, 25 mL, Route: IVP, Drug Form: INJ, Dosing Weight 99.091, kg, PRN, PRN B lood Glucose Results, Start date: 04/13/20 13:03:00 CDT, Duration: 30 day, Stop date: 05/13/20 13:02:00 CDT, 0 Start Date: 04/13/20 Stop Date: 04/20/20 Status: Discontinued Dextrose 50% Syringe (D50W) 25 gm, 50 mL, Route: IVP, Drug Form: INJ, Dosing Weight 99.091, kg, PRN, PRN Blo od Glucose Results, Start date: 04/13/20 13:03:00 CDT, Duration: 30 day, Stop da te: 05/13/20 13:02:00 CDT, 0 Start Date: 04/13/20 Stop Date: 04/20/20 Status: Discontinued Dilaudid 6.255mg daily via implanted pump, 0 Refill(s) Start Date: 04/14/20 Stop Date: 04/20/20 Status: Discontinued DuoNeb inhalation solution 3 mL, Route: INHALATION, Drug Form: SOLN, Dosing Weight 99.091, kg, RQID, PRN Re spiratory Pathway, Start date: 04/13/20 19:01:00 CDT, Duration: 30 day, Stop keshav e: 05/13/20 19:00:00 CDT, 0 Notes: (Same as: Duoneb) Start Date: 04/13/20 Stop Date: 04/20/20 Status: Discontinued enoxaparin 40 mg, 0.4 mL, Route: SUB-Q, Drug form: INJ, [id number], Dosing Weight 99.091, kg, Start date: 04/13/20 14:00:00 CDT, Duration: 30 day, Stop date: 05/12/20 14:00: 00 CDT, 0 Notes: (Same as: Lovenox) Start Date: 04/13/20 Stop Date: 04/20/20 Status: Discontinued Flomax 0.4 mg, 1 cap, Route: PO, Drug form: CAP, BID, Dosing Weight 107.004, kg, Start date: 04/19/20 17:00:00 CDT, Duration: 30 day, Stop date: 05/19/20 9:00:00 CDT, 0 Notes: (Same As: Flomax) "Do Not Crush" Start Date: 04/19/20 Stop Date: 04/20/20 Status: Discontinued folic acid 0.4 mg, 1 tab, Route: PO, Drug form: TAB, BID, Dosing Weight 107.004, kg, Start date: 04/19/20 17:00:00 CDT, Duration: 30 day, Stop date: 05/19/20 9:00:00 CDT, 0 Start Date: 04/19/20 Stop Date: 04/20/20 Status: Discontinued gabapentin 300 mg oral capsule 300 mg, 1 cap, Route: PO, Drug form: CAP, QPM, Dosing Weight 107.004, kg, Start date: 04/19/20 17:00:00 CDT, Duration: 30 day, Stop date: 05/18/20 17:00:00 CDT, 0 Notes: (Same as: Neurontin) Start Date: 04/19/20 Stop Date: 04/20/20 Status: Discontinued glucagon 1 mg, Route: IM, Drug form: PDR/INJ, PRN, Dosing Weight 99.091, kg, PRN Blood Gl ucose Results, Start date: 04/13/20 13:03:00 CDT, Duration: 30 day, Stop date: 0 05/13/20 13:02:00 CDT, 0 Start Date: 04/13/20 Stop Date: 04/20/20 Status: Discontinued insulin lispro 2 unit, 0.02 mL, Route: SUB-Q, Drug form: SOLN, TID-Before Meals, Dosing Weight 99.091, kg, PRN Blood Glucose Results, Start date: 04/13/20 13:10:00 CDT, Durati on: 30 day, Stop date: 05/13/20 13:09:00 CDT, 0 Notes: (Same as: Humalog) Roll in palms of hands gently; Do not shake vigorously . WASTE: F/P - Black; E - Municipal Trash BinStable for 28 days at room tempera ture.Expires in days from Date Start Date: 04/13/20 Stop Date: 04/20/20 Status: Discontinued insulin lispro 4 unit, 0.04 mL, Route: SUB-Q, Drug form: SOLN, TID-Before Meals, Dosing Weight 99.091, kg, PRN Blood Glucose Results, Start date: 04/13/20 13:10:00 CDT, Durati on: 30 day, Stop date: 05/13/20 13:09:00 CDT, 0 Notes: (Same as: Humalog) Roll in palms of hands gently; Do not shake vigorously . WASTE: F/P - Black; E - Municipal Trash BinStable for 28 days at room tempera ture.Expires in days from Date Start Date: 04/13/20 Stop Date: 04/20/20 Status: Discontinued insulin lispro 6 unit, 0.06 mL, Route: SUB-Q, Drug form: SOLN, TID-Before Meals, Dosing Weight 99.091, kg, PRN Blood Glucose Results, Start date: 04/13/20 13:10:00 CDT, Durati on: 30 day, Stop date: 05/13/20 13:09:00 CDT, 0 Notes: (Same as: Humalog) Roll in palms of hands gently; Do not shake vigorously . WASTE: F/P - Black; E - Municipal Trash BinStable for 28 days at [facility].Expires in days from Date Start Date: 04/13/20 Stop Date: 04/20/20 Status: Discontinued insulin lispro 8 unit, 0.08 mL, Route: SUB-Q, Drug form: SOLN, TID-Before Meals, Dosing Weight 99.091, kg, PRN Blood Glucose Results, Start date: 04/13/20 13:10:00 CDT, Durati on: 30 day, Stop date: 05/13/20 13:09:00 CDT, 0 Notes: (Same as: Humalog) Roll in palms of hands gently; Do not shake vigorously . WASTE: F/P - Black; E - Municipal Trash BinStable for 28 days at [facility].Expires in days from Date Start Date: 04/13/20 Stop Date: 04/20/20 Status: Discontinued insulin lispro 10 unit, 0.1 mL, Route: SUB-Q, Drug form: SOLN, TID-Before Meals, Dosing Weight 99.091, kg, PRN Blood Glucose Results, Start date: 04/13/20 13:10:00 CDT, Durati on: 30 day, Stop date: 05/13/20 13:09:00 CDT, 0 Notes: (Same as: Humalog) Roll in palms of hands gently; Do not shake vigorously . WASTE: F/P - Black; E - Municipal Trash BinStable for 28 days at [facility].Expires in days from Date Start Date: 04/13/20 Stop Date: 04/20/20 Status: Discontinued iron sulfate (ferrous sulfate) 325 mg oral tablet 325 mg = 1 tab, PO, Daily, # 270 tab, 0 Refill(s) Start Date: 04/14/20 Status: Ordered Kenalog 0.1% topical cream 1 appl, Route: TOP, TID, Drug form: CRM, Start date: 04/14/20 9:00:00 CDT, Durat ion: 30 day, Stop date: 05/13/20 17:00:00 CDT, 0 Notes: (triamcinolone acetonide 0.1% 15 gm top CRM)(Same As: Kenalog) Start Date: 04/14/20 Stop Date: 04/20/20 Status: Discontinued Lasix 40 mg, 4 mL, Route: IV, Drug form: INJ, TID, Start date: 04/14/20 9:00:00 CDT, D uration: 30 day, Stop date: 05/13/20 17:00:00 CDT, 0 Notes: (Same as: Lasix) MEDICATION WASTE Product Size: 40 mgProduct Was chaparro: ___ mg Start Date: 04/14/20 Stop Date: 04/17/20 Status: Discontinued Lasix 80 mg, 8 mL, Route: IVP, Drug form: INJ, ONCE, Dosing Weight 99.091, kg, Priorit y: STAT, Start date: 04/13/20 10:27:00 CDT, Stop date: 04/13/20 10:27:00 CDT, 0 Notes: (Same as: Lasix) MEDICATION WASTE Product Size: 40 mgProduct Was chaparro: ___ mg Start Date: 04/13/20 Stop Date: 04/13/20 Status: Completed Lasix 100 mg, 10 mL, Route: IV, Drug form: INJ, ONCE, Dosing Weight 107.004, kg, Start date: 04/17/20 10:41:00 CDT, Stop date: 04/17/20 10:41:00 CDT, 0 Notes: (Same as: Lasix) MEDICATION WASTE Product Size: 100 mgProduct Wa sted: ___ mg Start Date: 04/17/20 Stop Date: 04/17/20 Status: Completed Lasix 100 mg in 100 ml IV titrate 100 mg + Sodium Chloride 0.9% IV 90 mL 100 mg, 10 mL, Rate: 10 ml/hr, Infuse over: 10 hr, Dosing Weight 107.004, kg, Ro [place]: IV, Total Volume: 100, Start Date: 04/17/20 10:41:00 CDT, Duration: 30 day, Stop date: 05/17/20 10:40:00 CDT, Replace Every: 10 hr, continuous, 0 Notes: (Same as: Lasix) MEDICATION WASTE Product Size: 100 mgProduct Me sted: ___ mg Start Date: 04/17/20 Stop Date: 04/20/20 Status: Discontinued levothyroxine 100 microgram, 1 tab, Route: PO, Drug form: TAB, Daily, Dosing Weight 107.004, k g, Start date: 04/20/20 6:30:00 CDT, Duration: 30 day, Stop date: 05/19/20 6:30: 00 CDT, 0 Notes: Take 1 hour before or 2 hours after meal; Enteral feeds may interefere wi th the absorption of this medication. (Same as:Levothroid, Synthroid) Start Date: 04/20/20 Stop Date: 04/20/20 Status: Discontinued liothyronine 5 microgram, 1 tab, Route: PO, Drug form: TAB, Daily, Dosing Weight 107.004, kg, Start date: 04/20/20 6:30:00 CDT, Duration: 30 day, Stop date: 05/19/20 6:30:00 CDT, 0 Notes: (Same as: Cytomel) Start Date: 04/20/20 Stop Date: 04/20/20 Status: Discontinued magnesium sulfate 2 gm, 50 mL, Route: IVPB, Drug form: INJ, ONCE, Dosing Weight 107.004, kg, Total dose = 2 gm, Start date: 04/19/20 6:31:00 CDT, Stop date: 04/19/20 6:31:00 CDT, 0 Notes: WASTE: F/P - Sink; E - Municipal Trash Bin Start Date: 04/19/20 Stop Date: 04/19/20 Status: Completed melatonin 3 mg, 1 tab, Route: PO, Drug form: TAB, Bedtime, Dosing Weight 107.004, kg, PRN Sleep, Start date: 04/16/20 3:04:00 CDT, Duration: 30 day, Stop date: 05/16/20 3 :03:00 CDT, 0 Notes: (Same as: Melatonin) Start Date: 04/16/20 Stop Date: 04/20/20 Status: Discontinued metolazone 5 mg oral tablet 5 mg, 2 tab, Route: PO, Drug form: TAB, Every Other Day, Dosing Weight 107.004, kg, Start date: 04/19/20 18:32:00 CDT, Duration: 30 day, Stop date: 05/19/20 9:0 0:00 CDT, 0 Notes: (Same as: Zaroxolyn) Start Date: 04/19/20 Stop Date: 04/20/20 Status: Discontinued metolazone 5 mg oral tablet PO, Every Other Day, 0 Refill(s) Start Date: 04/20/20 Status: Ordered metoprolol tartrate 25 mg, 1 tab, Route: PO, Drug form: TAB, BID, Dosing Weight 107.004, kg, Priorit y: NOW, Start date: 04/14/20 16:54:00 CDT, Duration: 30 day, Stop date: 05/14/20 9:00:00 CDT, 0 Notes: (Same as: Lopressor) Start Date: 04/14/20 Stop Date: 04/16/20 Status: Discontinued metoprolol tartrate 12.5 mg, 0.5 tab, Route: PO, Drug form: TAB, BID, Dosing Weight 107.004, kg, Sta rt date: 04/16/20 17:00:00 CDT, Duration: 30 day, Stop date: 05/16/20 9:00:00 CD T, 0 Notes: (Same as: Lopressor) Start Date: 04/16/20 Stop Date: 04/20/20 Status: Discontinued morphine Sulfate 2 mg, 1 mL, Route: IV, Drug form: INJ, Q4H, Dosing Weight 107.004, kg, PRN Pain Score 7-10, Start date: 04/16/20 3:04:00 CDT, Duration: 7 day, Stop date: 3:03:00 CDT, 0 Notes: (Same as:MORPhine Sulfate) Start Date: 04/16/20 Stop Date: 04/17/20 Status: Discontinued [place] 10/325 oral tablet 1 tab, Route: PO, Drug Form: TAB, Dosing Weight 99.091, kg, ONCE, Start date: 23:20:00 CDT, Stop date: 04/13/20 23:20:00 CDT, 0 Notes: Do not exceed 4gm/day of acetaminophen. (Same as: [place] 325/10) Start Date: 04/13/20 Stop Date: 04/13/20 Status: Completed [place] 5/325 oral tablet 1 tab, Route: PO, Drug Form: TAB, Dosing Weight 107.004, kg, Q6H, PRN Pain Score 1-3, Start date: 04/14/20 15:59:00 CDT, Duration: 30 day, Stop date: 05/14/20 1 5:58:00 CDT, 0 Notes: (Same as: [place] 325/5) Do not exceed 4gm/day of acetaminophen. Start Date: 04/14/20 Stop Date: 04/20/20 Status: Discontinued [place] 5/325 oral tablet 1 tab, PO, BID, PRN Pain Score 1-3, M25.522, G89.4, X 5 day, # 10 tab, 0 Refill( s), Pharmacy: [id number], 175.26, cm, 04/14/20 4:17:00 CDT, Hei ght, 107.004, kg, 04/14/20 4:17:00 CDT, Weight Start Date: 04/20/20 Stop Date: 04/25/20 Status: Ordered Plavix 75 mg, 1 tab, Route: PO, Drug form: TAB, Daily, Dosing Weight 107.004, kg, Start date: 04/20/20 9:00:00 CDT, Duration: 30 day, Stop date: 05/19/20 9:00:00 CDT, 0 Notes: (Same As: Plavix) Start Date: 04/20/20 Stop Date: 04/20/20 Status: Discontinued potassium chloride 40 mEq, 2 tab, Route: PO, Drug form: ERTAB, Daily, Dosing Weight 107.004, kg, St art date: 04/19/20 9:00:00 CDT, Duration: 30 day, Stop date: 05/18/20 9:00:00 CD T, 0 Notes: (Same as: K-Dur )"Do Not Crush" Give with food and full glass of water For patients unable to swallow tablet, dissolve in one half glass of water. Allo w about 2 minutes for the tablets to disintegrate. Stir before giving to prepare slurry and administer.Please exclude Patients with feeding tube less than 14 Tamazight (Dobhoff, J-tube etc) and pediatric and patients. Start Date: 04/19/20 Stop Date: 04/19/20 Status: Discontinued potassium chloride 40 mEq, 2 tab, Route: PO, Drug form: ERTAB, ONCE, Dosing Weight 107.004, kg, Sta rt date: 04/18/20 9:36:00 CDT, Stop date: 04/18/20 9:36:00 CDT, 0 Notes: (Same as: K-Dur 20)"Do Not Crush" Give with food and full glass of water For patients unable to swallow tablet, dissolve in one half glass of water. Allo w about 2 minutes for the tablets to disintegrate. Stir before giving to prepare slurry and administer.Please exclude Patients with feeding tube less than 14 Tamazight (Dobhoff, J-tube etc) and pediatric and patients. Start Date: 04/18/20 Stop Date: 04/18/20 Status: Completed potassium chloride 20 mEq oral tablet, extended release (KCL) 40 mEq, 2 tab, Route: PO, Drug form: ERTAB, ONCE, Dosing Weight 107.004, kg, Sta rt date: 04/20/20 7:51:00 CDT, Stop date: 04/20/20 7:51:00 CDT, 0 Notes: (Same as: K-Dur 20)"Do Not Crush" Give with food and full glass of water For patients unable to swallow tablet, dissolve in one half glass of water. Allo w about 2 minutes for the tablets to disintegrate. Stir before giving to prepare slurry and administer.Please exclude Patients with feeding tube less than 14 Tamazight (Dobhoff, J-tube etc) and pediatric and patients. Start Date: 04/20/20 Stop Date: 04/20/20 Status: Completed potassium chloride 20 mEq oral tablet, extended release (KCL) 20 mEq, 1 tab, Route: PO, Drug form: ERTAB, Daily, Dosing Weight 107.004, kg, St art date: 04/20/20 9:00:00 CDT, Duration: 30 day, Stop date: 05/19/20 9:00:00 CD T, 0 Notes: (Same as: K-Dur )"Do Not Crush" Give with food and full glass of water For patients unable to swallow tablet, dissolve in one half glass of water. Allo w about 2 minutes for the tablets to disintegrate. Stir before giving to prepare slurry and administer.Please exclude Patients with feeding tube less than 14 Tamazight (Dobhoff, J-tube etc) and pediatric and patients. Start Date: 04/20/20 Stop Date: 04/20/20 Status: Discontinued predniSONE 20 mg, 1 tab, Route: PO, Drug form: TAB, Daily, Dosing Weight 99.091, kg, Start date: 04/14/20 9:00:00 CDT, Duration: 30 day, Stop date: 05/13/20 9:00:00 CDT, 0 Notes: Take with food. Start Date: 04/14/20 Stop Date: 04/20/20 Status: Discontinued rOPINIRole 0.5 mg, 1 tab, Route: PO, Drug form: TAB, BID, Dosing Weight 107.004, kg, Start date: 04/19/20 17:00:00 CDT, Duration: 30 day, Stop date: 05/19/20 9:00:00 CDT, 0 Notes: (Same as: Requip) Start Date: 04/19/20 Stop Date: 04/20/20 Status: Discontinued Saline Flush 0.9% 10 mL, Route: IVP, Drug Form: INJ, Dosing Weight 99.091, kg, PRN, PRN Line Flush , Start date: 04/13/20 10:07:00 CDT, Duration: 30 day, Stop date: 05/13/20 10:06 :00 CDT, 0 Notes: Same as: BD Posiflush Sterile Start Date: 04/13/20 Stop Date: 04/20/20 Status: Discontinued Saline Flush 0.9% 10 ml, Route: IVP, Drug Form: INJ, Dosing Weight 99.091, kg, Q12H, Start date: 0 04/13/20 21:00:00 CDT, Duration: 30 day, Stop date: 05/13/20 9:00:00 CDT, 0 Notes: Same as: BD Posiflush Sterile Start Date: 04/13/20 Stop Date: 04/20/20 Status: Discontinued Saline Flush 0.9% 10 ml, Route: IVP, Drug Form: INJ, Dosing Weight 99.091, kg, PRN, PRN Line Flush , Start date: 04/13/20 13:43:00 CDT, Duration: 30 day, Stop date: 05/13/20 13:42 :00 CDT, 0 Notes: Same as: BD Posiflush Sterile Start Date: 04/13/20 Stop Date: 04/20/20 Status: Discontinued tetanus/diphth/pertuss (Tdap) adult/adol 5 units-2.5 units-18.5 mcg/0.5 mL intra muscular suspension 0.5 ml, Route: IM, Drug Form: SUSP, Dosing Weight 99.091, kg, ONCE, Within 24 ho urs, Start date: 04/13/20 19:49:00 CDT, Stop date: 04/13/20 19:49:00 CDT Start Date: 04/13/20 Stop Date: 04/13/20 Status: Deleted vancomycin + Sodium Chloride 0.9% IV 250 mL 1,000 mg, Route: IVPB, ONCE, Dosing Weight 99.091, kg, Priority: STAT, Start keshav e: 04/13/20 10:12:00 CDT, Stop date: 04/13/20 10:12:00 CDT, ABX Indication: Bact eremia, 0 Notes: TIME CRITICAL MEDICATION(Same As: Vancocin)Infusion rate< 1000 mg: infuse over 1 [id number] - 1500 mg: infuse over 1.5 [id number] - 2000 mg: infuse over 2 hours> 2001 mg: infuse over 2.5 hoursFor adult patients only: Round to nearest 250 mg per Medical Staff approval MEDICATION WASTE Product Size: 1000 mgProduct Wasted: ___ mg Start Date: 04/13/20 Stop Date: 04/13/20 Status: Completed vancomycin + Sodium Chloride 0.9% IV 250 mL 1,000 mg, Route: IVPB, ONCE, Start date: 04/15/20 5:00:00 CDT, Stop date: 5:00:00 CDT, ABX Indication: Bacteremia, 0 Notes: TIME CRITICAL MEDICATION(Same As: Vancocin)Infusion rate< 1000 mg: infuse over 1 [id number] - 1500 mg: infuse over 1.5 [id number] - 2000 mg: infuse over 2 hours> 2001 mg: infuse over 2.5 hoursFor adult patients only: Round to nearest 250 mg per Medical Staff approval MEDICATION WASTE Product Size: 1000 mgProduct Wasted: ___ mg Start Date: 04/15/20 Stop Date: 04/15/20 Status: Completed vancomycin + Sodium Chloride 0.9% IV 250 mL 750 mg, Route: IVPB, ONCE, Start date: 04/16/20 12:30:00 CDT, Stop date: 0 12:30:00 CDT, ABX Indication: Skin/Soft Tissue Infection, 0 Notes: TIME CRITICAL MEDICATION(Same As: Vancocin)Infusion rate< 1000 mg: infuse over 1 [id number] - 1500 mg: infuse over 1.5 [id number] - 2000 mg: infuse over 2 hours> 2001 mg: infuse over 2.5 hoursFor adult patients only: Round to nearest 250 mg per Medical Staff approval MEDICATION WASTE Product Size: 1000 mgProduct Wasted: ___ mg Start Date: 04/16/20 Stop Date: 04/16/20 Status: Completed vancomycin + Sodium Chloride 0.9% IV 250 mL 1,000 mg, Route: IVPB, [id number], Start date: 04/17/20 14:00:00 CDT, Stop date: 13:00:00 CDT, ABX Indication: Bone/Joint Infection, 0 Notes: TIME CRITICAL MEDICATION(Same As: Vancocin)Infusion rate< 1000 mg: infuse over 1 [id number] - 1500 mg: infuse over 1.5 [id number] - 2000 mg: infuse over 2 hours> 2001 mg: infuse over 2.5 hoursFor adult patients only: Round to nearest 250 mg per Medical Staff approval MEDICATION WASTE Product Size: 1000 mgProduct Wasted: ___ mg Start Date: 04/17/20 Stop Date: 04/20/20 Status: Discontinued Vancomycin Pharmacy Dosing 1 ea, Route: MISC, ONCALL, Dosing Weight 99.091, kg, Start date: 04/13/20 20:00: 00 CDT, Duration: 7 day, Stop date: 04/20/20 19:59:00 CDT, Pharmacy to dose, ABX Indication: Skin/Soft Tissue Infection Start Date: 04/13/20 Stop Date: 04/13/20 Status: Deleted Vancomycin Pharmacy Dosing 1 ea, Route: MISC, ONCALL, Dosing Weight 107.004, kg, Start date: 04/14/20 11:00 :00 CDT, Duration: 5 day, Stop date: 04/19/20 10:59:00 CDT, Pharmacy to dose, AB X Indication: Bacteremia Start Date: 04/14/20 Stop Date: 04/14/20 Status: Completed Vancomycin Pharmacy Dosing 1 ea, Route: MISC, ONCALL, Dosing Weight 99.091, kg, Start date: 04/13/20 14:00: 00 CDT, Duration: 14 day, Stop date: 04/27/20 13:59:00 CDT, Pharmacy to dose, AB X Indication: Skin/Soft Tissue Infection Start Date: 04/13/20 Stop Date: 04/13/20 Status: Completed vancomycin pharmacy dosing (ALISON) vancomycin pharmacy dosing (ALISON), reminder, Drug form: MISC, Route: MISC, Daily, PRN, 04/13/20 13:24:00 CDT, Stop date: 04/19/20 13:23:00 CDT, pharmAcy, 0 Start Date: 04/13/20 Stop Date: 04/17/20 Status: Discontinued vancomycin random level vancomycin random level, reminder, Drug form: MISC, Route: MISC, ONCE, 04/14/20 10:00:00 CDT, Stop date: 04/14/20 10:00:00 CDT, 0 Start Date: 04/14/20 Stop Date: 04/14/20 Status: Ordered vitamin A & D topical ointment 1 appl, Route: TOP, BID, Drug form: OINT, Start date: 04/14/20 9:00:00 CDT, Dura tion: 30 day, Stop date: 05/13/20 17:00:00 CDT, 0 Start Date: 04/14/20 Stop Date: 04/20/20 Status: Discontinued Vitamin D3 20,000 IntlUnit, 4 cap, Route: PO, Drug form: CAP, QPM, Dosing Weight 107.004, k g, Start date: 04/19/20 17:00:00 CDT, Duration: 30 day, Stop date: 05/18/20 17:0 0:00 CDT, 0 Notes: (Same as: Vitamin D3) Start Date: 04/19/20 Stop Date: 04/20/20 Status: Discontinued Zoloft 50 mg, 1 tab, Route: PO, Drug form: TAB, QPM, Dosing Weight 107.004, kg, Start d ate: 04/19/20 17:00:00 CDT, Duration: 30 day, Stop date: 05/18/20 17:00:00 CDT, 0 Notes: (Same as: Zoloft) Start Date: 04/19/20 Stop Date: 04/20/20 Status: Discontinued Results 1 2 3 Most recent to oldest [Reference Range]: 0.58 ng/mL *HI* (04/13/20 10:56 AM) Procalcitonin Lvl [0.00-0.10 ng/mL] 3.5 K/CMM (04/20/20 6:15 AM) 3.5 K/CMM (04/19/20 5:04 AM) 3.6 K/CMM (04/18/20 6:25 AM) Neutrophils # [1.5-8.1 K/CMM] 0.8 K/CMM *LOW* (04/20/20 6:15 AM) 0.7 K/CMM *LOW* (04/19/20 5:04 AM) 0.8 K/CMM *LOW* (04/18/20 6:25 AM) Lymphocytes # [1.0-5.5 K/CMM] 0.4 K/CMM (04/20/20 6:15 AM) 0.3 K/CMM (04/19/20 5:04 AM) 0.4 K/CMM (04/18/20 6:25 AM) Monocytes # [0.0-0.8 K/CMM] 0.1 K/CMM (04/20/20 6:15 AM) Eosinophils # [0.0-0.5 K/CMM] 0.1 K/CMM (04/15/20 5:56 AM) Basophils # [0.0-0.2 K/CMM] 420 pg/mL *HI* (04/15/20 5:56 AM) 443 pg/mL *HI* (04/13/20 10:56 AM) BNP [<=100 pg/mL] 1330 *NA* (04/19/20 1:33 PM) Vanco Tr TND 17.2 ug/ml *NA* (04/19/20 1:33 PM) Vanco Tr Normal (04/20/20 6:15 AM) Normal (04/19/20 5:04 AM) Normal (04/18/20 6:25 AM) Plt Morph [Normal] 0.17 *NA* (04/13/20 5:27 PM) U Prot/Creat Negative (04/14/20 7:47 AM) MRSA by PCR Not Detected (04/13/20 10:56 AM) E. faecalis [Not Detected] Not Detected (04/13/20 10:56 AM) E. faecium [Not Detected] Not Detected (04/13/20 10:56 AM) Listeria spp. [Not Detected] Detected *ABN* (04/13/20 10:56 AM) mecA Methicillin Resistance [Not Detected] Not Detected (04/13/20 10:56 AM) S. agalactiae [Not Detected] Not Detected (04/13/20 10:56 AM) S. anginosus grp [Not Detected] Not Detected (04/13/20 10:56 AM) S. aureus [Not Detected] Detected *ABN* (04/13/20 10:56 AM) S. epidermidis [Not Detected] Not Detected (04/13/20 10:56 AM) S. lugdunensis [Not Detected] Not Detected (04/13/20 10:56 AM) S. pneumoniae [Not Detected] Not Detected (04/13/20 10:56 AM) S. pyogenes [Not Detected] Detected *ABN* (04/13/20 10:56 AM) Staphylococcus spp. [Not Detected] Not Detected (04/13/20 10:56 AM) Streptococcus spp. [Not Detected] Not Detected (04/13/20 10:56 AM) Daisha Vancomycin Resistance [Not Detected] Not Detected (04/13/20 10:56 AM) vanB Vancomycin Resistance [Not Detected] 43 mL/min/1.73m2 1 *NA* (04/20/20 6:15 AM) 45 mL/min/1.73m2 2 *NA* (04/19/20 5:04 AM) 42 mL/min/1.73m2 3 *NA* (04/18/20 6:25 AM) eGFR 0.7 (04/13/20 10:56 AM) A/G Ratio [0.7-1.6] 2.6 g/dL *LOW* (04/13/20 10:56 AM) Albumin Lvl [3.5-5.0 g/dL] 75 unit/L (04/13/20 10:56 AM) Alk Phos [39-136 unit/L] 21 unit/L (04/13/20 10:56 AM) ALT [0-65 unit/L] 8.8 mEq/L *LOW* (04/20/20 6:15 AM) 6.1 mEq/L *LOW* (04/19/20 5:04 AM) 6.0 mEq/L *LOW* (04/18/20 6:25 AM) AGAP [10.0-20.0 mEq/L] 1+ *ABN* (04/18/20 6:25 AM) Anisocyte [None Seen] 25 unit/L (04/13/20 10:56 AM) AST [0-37 unit/L] 23 (04/13/20 10:56 AM) B/C Ratio [6-25] 0.9 % (04/20/20 6:15 AM) 0.7 % (04/19/20 5:04 AM) 0.5 % (04/18/20 6:25 AM) Basophils [0.0-1.0 %] 39 mg/dL *HI* (04/20/20 6:15 AM) 36 mg/dL *HI* (04/19/20 5:04 AM) 41 mg/dL *HI* (04/18/20 6:25 AM) BUN [7-22 mg/dL] 8.3 mg/dL *LOW* (04/20/20 6:15 AM) 9.2 mg/dL (04/19/20 5:04 AM) 9.0 mg/dL (04/18/20 6:25 AM) Calcium Lvl [8.5-10.5 mg/dL] 81 unit/L (04/13/20 10:56 AM) Total CK [12-191 unit/L] 97 mEq/L (04/20/20 6:15 AM) 100 mEq/L (04/19/20 5:04 AM) 98 mEq/L (04/18/20 6:25 AM) Chloride Lvl [95-109 mEq/L] 33 mEq/L *HI* (04/20/20 6:15 AM) 35 mEq/L *HI* (04/19/20 5:04 AM) 37 mEq/L *HI* (04/18/20 6:25 AM) CO2 [24-32 mEq/L] 1.56 mg/dL *HI* (04/20/20 6:15 AM) 1.50 mg/dL *HI* (04/19/20 5:04 AM) 1.60 mg/dL *HI* (04/18/20 6:25 AM) Creatinine Lvl [0.50-1.40 mg/dL] 106.0 mg/L *HI* (04/14/20 5:50 AM) CRP [<=2.9 mg/L] 0.94 ug/mL FEU *NA* (04/13/20 10:56 AM) D-Dimer 1.0 % (04/20/20 6:15 AM) 0.6 % (04/19/20 5:04 AM) 0.3 % (04/18/20 6:25 AM) Eosinophils [0.0-4.0 %] 3.5 g/dL (04/13/20 10:56 AM) Globulin [2.7-4.2 g/dL] 103 mg/dL *HI* (04/20/20 6:15 AM) 83 mg/dL (04/19/20 5:04 AM) 77 mg/dL (04/18/20 6:25 AM) Glucose Lvl [70-99 mg/dL] 38.3 % *LOW* (04/20/20 6:15 AM) 41.5 % *LOW* (04/19/20 5:04 AM) 40.3 % *LOW* (04/18/20 6:25 AM) Hct [42.0-54.0 %] 12.1 g/dL *LOW* (04/20/20 6:15 AM) 12.8 g/dL *LOW* (04/19/20 5:04 AM) 12.5 g/dL *LOW* (04/18/20 6:25 AM) Hgb [14.0-18.0 g/dL] 1+ (04/19/20 5:04 AM) 1+ (04/18/20 6:25 AM) 1+ (04/15/20 5:56 AM) Hypochrom [None Seen] 1.00 (04/13/20 10:56 AM) INR [0.85-1.17] 3.2 mEq/L *LOW* (04/20/20 10:44 AM) 2.8 mEq/L 4 *CRIT* (04/20/20 6:15 AM) 3.1 mEq/L *LOW* (04/19/20 5:04 AM) Potassium Lvl [3.5-5.1 mEq/L] 2.0 mMol/L (04/13/20 10:56 AM) Lactic Acid Lvl [0.5-2.2 mMol/L] 16.9 % *LOW* (04/20/20 6:15 AM) 15.3 % *LOW* (04/19/20 5:04 AM) 17.5 % *LOW* (04/18/20 6:25 AM) Lymphocytes [20.0-40.0 %] 27.5 pg (04/20/20 6:15 AM) 27.1 pg (04/19/20 5:04 AM) 27.3 pg (04/18/20 6:25 AM) MCH [27.0-31.0 pg] 31.5 g/dL *LOW* (04/20/20 6:15 AM) 30.8 g/dL *LOW* (04/19/20 5:04 AM) 30.9 g/dL *LOW* (04/18/20 6:25 AM) MCHC [32.0-36.0 g/dL] 87.2 fL (04/20/20 6:15 AM) 87.8 fL (04/19/20 5:04 AM) 88.3 fL (04/18/20 6:25 AM) MCV [80.0-94.0 fL] 2.0 mg/dL (04/20/20 6:15 AM) 1.6 mg/dL *LOW* (04/19/20 5:04 AM) 2.1 mg/dL (04/18/20 6:25 AM) Magnesium Lvl [1.8-2.4 mg/dL] 7.8 % (04/20/20 6:15 AM) 7.2 % (04/19/20 5:04 AM) 8.1 % (04/18/20 6:25 AM) Monocytes [2.0-12.0 %] 8.0 fL (04/20/20 6:15 AM) 7.8 fL (04/19/20 5:04 AM) 7.9 fL (04/18/20 6:25 AM) MPV [7.4-10.4 fL] 136 mEq/L (04/20/20 6:15 AM) 138 mEq/L (04/19/20 5:04 AM) 138 mEq/L (04/18/20 6:25 AM) Sodium Lvl [135-145 mEq/L] 3.4 mg/dL (04/19/20 5:04 AM) 3.1 mg/dL (04/15/20 5:56 AM) 4.5 mg/dL (04/14/20 5:50 AM) Phosphorus [2.5-4.5 mg/dL] 183 K/CMM (04/20/20 6:15 AM) 194 K/CMM (04/19/20 5:04 AM) 196 K/CMM (04/18/20 6:25 AM) Platelet [133-450 K/CMM] 73.4 % (04/20/20 6:15 AM) 76.2 % *HI* (04/19/20 5:04 AM) 73.6 % (04/18/20 6:25 AM) Segs [45.0-75.0 %] 6.1 g/dL *LOW* (04/13/20 10:56 AM) Total Protein [6.4-8.4 g/dL] 13.2 seconds (04/13/20 10:56 AM) PT [12.0-14.7 seconds] 28.1 seconds (04/13/20 10:56 AM) PTT [22.9-35.8 seconds] 4.39 M/CMM *LOW* (04/20/20 6:15 AM) 4.73 M/CMM (04/19/20 5:04 AM) 4.57 M/CMM *LOW* (04/18/20 6:25 AM) RBC [4.70-6.10 M/CMM] Normal (04/20/20 6:15 AM) RBC Morph [Normal] 19.6 % *HI* (04/20/20 6:15 AM) 19.5 % *HI* (04/19/20 5:04 AM) 19.9 % *HI* (04/18/20 6:25 AM) RDW [11.5-14.5 %] 54 mm/hr *HI* (04/14/20 5:50 AM) Sed Rate [0-15 mm/hr] 0.5 mg/dL (04/13/20 10:56 AM) Bili Total [0.2-1.3 mg/dL] 0.13 ng/mL (04/14/20 5:50 AM) 0.15 ng/mL (04/13/20 5:27 PM) 0.06 ng/mL (04/13/20 10:56 AM) Troponin-I [0.00-0.40 ng/mL] Occasional /HPF *NA* (04/13/20 5:27 PM) UA Bacteria [None Seen /HPF] Negative *NA* (04/13/20 5:27 PM) UA Bili [Negative] Negative (04/13/20 5:27 PM) UA Blood [Negative] Demi *NA* (04/13/20 5:27 PM) UA Color 206.00 mg/dL *NA* (04/13/20 5:27 PM) U Creatinine None Seen (04/13/20 5:27 PM) U Eos [None Seen] Negative mg/dL *NA* (04/13/20 5:27 PM) UA Glucose [Negative mg/dL] 83 /LPF *HI* (04/13/20 5:27 PM) UA Hyal Cast [0-2 /LPF] Negative mg/dL *NA* (04/13/20 5:27 PM) UA Ketones [Negative mg/dL] Negative (04/13/20 5:27 PM) UA Leuk Est [Negative] Positive *ABN* (04/13/20 5:27 PM) UA Nitrite [Negative] 5.0 (04/13/20 5:27 PM) UA pH [5.0-8.0] 36.0 mg/dL *NA* (04/13/20 5:27 PM) U Protein Negative mg/dL (04/13/20 5:27 PM) UA Protein [Negative mg/dL] 1 /HPF (04/13/20 5:27 PM) UA RBC [0-2 /HPF] 12 mEq/L *NA* (04/13/20 5:27 PM) U Sodium 1.017 (04/13/20 5:27 PM) UA Spec Grav [<=1.030] Occasional /LPF *NA* (04/13/20 5:27 PM) UA Sq Epi [Few /LPF] Slight *ABN* (04/13/20 5:27 PM) UA Turbidity [Clear] <=1.0 mg/dL *NA* (04/13/20 5:27 PM) UA Urobilinogen [0.1-1.0 mg/dL] 2 /HPF (04/13/20 5:27 PM) UA WBC [0-5 /HPF] Urine protein consists primarily of albu min. No monoclonal bands are identified. Interpretation performed at [facility]. *NA* (04/13/20 5:27 PM) Interp (UPE) random, 100x *NA* (04/13/20 5:27 PM) Spec Type (UPE) 31 mg/dL *NA* (04/13/20 5:27 PM) Tot Prot (UPE) 15.8 ug/ml *NA* (04/17/20 12:21 PM) 17.9 ug/ml *NA* (04/16/20 10:22 AM) 25.5 ug/ml *NA* (04/14/20 10:19 AM) Vanco Lvl 4.8 K/CMM (04/20/20 6:15 AM) 4.6 K/CMM (04/19/20 5:04 AM) 4.8 K/CMM (04/18/20 6:25 AM) WBC [3.7-10.4 K/CMM] 1Result Comment: The eGFR [...] BMI. 4Result Comment: Critical Result(s) called to Aiden Cerda at 04/20/2020 07:23 by ANNABELLE. Read back OK. Immunizations Given and Recorded [...] 2011 Assessment and Plan Extracted from: Title: Clinical Document Author: Alona Perez Keshav e: 04/20/20 PAIN MANAGEMENT PROGRESS NOTE SUBJECTIVE: Patient notes that current pain is stable Continued left elbow pain He also notes chronic back pain Current pain: 01/03 Seen ambulating around the room with no issues No acute events overnight. Sleeping well overnight No side effects to current pain medications REVIEW OF SYSTEMS: negative unless otherwise stated in HPI. PHYSICAL EXAM: GENERAL: alert, awake, and oriented. Well-nourished, obese, well-developed in no apparent distress HEENT: normocephalic, atraumatic, EOMI SKIN: warm, dry, left elbow swelling RESPIRATORY: unlabored breathing, no accessory muscle use, NC in place CARDIOVASCULAR: regular rate GASTROINTESTINAL: soft, nondistended, increased abdominal girth MUSCULOSKELETAL: tenderness to left elbow NEUROLOGICAL: spontaneous movement of all limbs ASSESSMENT AND PLAN Mr. Steve Benedict is a 74 y/o M with multiple medical issues complaining of left elbow pain and thoracic pain. He currently has a ITP that was interrogated on 04/14/20 which was last filled 03/29/20 and appears to be functioning properly. No plans for any medication changes or adjustments at this time. He may continue [place] 5/325mg q6h as needed. He is pending thoracic laminectomy once left elbow infection is cleared. We will continue to monitor pulmonary status. We will continue to follow and make adjustments as needed. We have provided a discharge prescription to the patient's pharmacy for [place] 5/325mg #10. Please call with any questions or concerns. Attending: Fransisca Ferreira MDPhone: Service: Internal Medicine Code status: None Specified=FULL CODE Reason for Admission: ACUTE RESP FAILURE Working DRG: Isolation: No Isolation/Standard Precautions Consulting Physicians: Jey Yanes MDOffice: Service: Infectious Disease, Medicine Sadi Jose MDOffice: Service: Nephrology Arsalan España MDOffice: Service: Medicine Horace Mcguire MDOffice: Service: Cardiology Ross Bynum MDOffice: Service: Physical Medicine/Rehabilitation Ivan Carlisle MDOffice: Service: Medicine, Neurology Emelyn Rico MDOffice: Service: Medicine, Neurology Robert Mendez MDOffice: Service: Nephrology Santosh Connors MDOffice: Service: Anesthesiology Garrick Bangura MDOffice: Service: Cardiology Temo Woodard MDOffice: Service: Pulmonary, Medicine None Specified=FULL CODE Allergies: Lyrica VitalsTmp(F)[id number] 04/20 11:[id number]--- 04/20 07:[id number]/[id number] 4.0L/m 04/20 05:0298.208753/89--98--- 04/20 00:1798.364628/66--98--- 04/19 19:3797.9514129/76--100--- 24 Hr Tmax: 98.3F (36.83c) at 04/20 00:1 7Vital Signs are the last 5 in the past 48 hours. Medications (41) Active Scheduled Meds (23): 04/13/20 albuterol (albuterol 0.042% inh alation solution) 1.25 mg NEB RQID 04/19/20 allopurinol 300 mg PO QPM 04/20/20 aspirin (aspirin 81 mg tablet, enteric coated) 81 mg PO Daily 04/19/20 budesonide (budesonide 0.5 mg/2 mL inhalation suspension) 0.5 mg NEB RBID 04/14/20 cefepime + Sodium Chloride 0.9% IV 100 mL 1 gm IVPB [id number] 200 ml/hr 04/19/20 cholecalciferol (Vitamin D3) 20 ,000 IntlUnit PO QPM 04/20/20 clopidogrel (Plavix) 75 mg PO D aily 04/13/20 enoxaparin 40 mg SUB-Q [id number] 04/19/20 folic acid 0.4 mg PO BID 04/19/20 gabapentin (gabapentin 300 mg o ral capsule) 300 mg PO QPM 04/20/20 levothyroxine 100 microgram PO Daily 04/20/20 liothyronine 5 microgram PO Laquita ly 04/19/20 metolazone (metolazone 5 mg ora l tablet) 5 mg PO Every Other Day 04/16/20 metoprolol (metoprolol tartrate ) 12.5 mg PO BID 04/20/20 potassium chloride (potassium c hloride 20 mEq oral tablet, extended release (KCL)) 20 mEq PO Daily 04/14/20 predniSONE 20 mg PO Daily 04/19/20 rOPINIRole 0.5 mg PO BID 04/19/20 sertraline (Zoloft) 50 mg PO QP M 04/13/20 sodium chloride (Saline Flush 0 .9%) 10 ml IVP Q12H 04/19/20 tamsulosin (Flomax) 0.4 mg PO B ID 04/14/20 triamcinolone topical (Kenalog 0.1% topical cream) 1 appl TOP TID 04/17/20 vancomycin + Sodium Chloride 0. 9% IV 250 mL 1,000 mg IVPB [id number] 250 ml/hr 04/14/20 vitamin A & D topical (vitamin A & D topical ointment) 1 appl TOP BID Unscheduled Meds: None PRN Meds (14): 04/13/20 Dextrose 50% in Water IV (Dextr ose 50% Syringe (D50W)) 12.5 gm IVP PRN 04/13/20 Dextrose 50% in Water IV (Dextr ose 50% Syringe (D50W)) 25 gm IVP PRN 04/14/20 acetaminophen-hydrocodone (Norc o 5/325 oral tablet) 1 tab PO Q6H 04/13/20 acetaminophen 650 mg PO Q4H 04/13/20 albuterol-ipratropium (DuoNeb i nhalation solution) 3 mL INHALATION RQID 04/13/20 glucagon 1 mg IM PRN 04/13/20 insulin lispro 2 unit SUB-Q TID -Before Meals 04/13/20 insulin lispro 4 unit SUB-Q TID -Before Meals 04/13/20 insulin lispro 6 unit SUB-Q TID -Before Meals 04/13/20 insulin lispro 8 unit SUB-Q TID -Before Meals 04/13/20 insulin lispro 10 unit SUB-Q TI D-Before Meals 04/16/20 melatonin 3 mg PO Bedtime 04/13/20 sodium chloride (Saline Flush 0 .9%) 10 mL IVP PRN 04/13/20 sodium chloride (Saline Flush 0 .9%) 10 ml IVP PRN One Time Meds (3): 04/20/20 (Ordered) alteplase (Cathflo A ctivase 2 mg injection) 1 mg INJ ONCE 04/19/20 (Completed) magnesium sulfate 2 gm IVPB ONCE 25 ml/hr 04/20/20 (Completed) potassium chloride (potassium chloride 20 mEq oral tablet, extended release (KCL)) 40 mEq PO ONCE Continuous Infusions (1): 04/17/20 furosemide 100 mg + Sodium Chlo ride 0.9% IV 90 mL (Lasix 100 mg in 100 ml IV titrate 100 mg + Sodium Chloride 0.9% IV 90 mL) 100 mg 10 ml/hr I&ORecordInOutBal 03/2524hr Tot 1080 1700 -620 4hr Tot 1440 [id number] Lines, Tubes, and Drains: 04/14/2020 04:00 Central Lines: Other: o ther PICC Double Labs (Last four charted values) WBC 4.8(SOL 25)4.6(SOL 24)4.8(SOL 23)5.5(SOL 20) Hgb L 12.1(SOL 25)L 12.8(SOL 24)L 12.5(SOL 23)L 10.3(SOL 20) Hct L 38.3(SOL 25)L 41.5(SOL 24)L 40.3(SOL 23)L 33.5(SOL 20) Plt 183(SOL 25)194(SOL 24)196(SOL 23)153(SOL 20) Na 136(SOL 25)138(SOL 24)138(SOL 23)138(SOL 22) K L 3.2(SOL 25)C 2.8(SOL 25)L 3.1(SOL 24)C 3.0(SOL 23) CO2 H 33(SOL 25)H 35(SOL 24)H 37(SOL 23)H 37(SOL 22) Cl 97(SOL 25)100(SOL 24)98(SOL 23)98(SOL 22) Cr H 1.56(SOL 25)H 1.50(SOL 24)H 1.60(SOL 23)H 1.61(SOL 22) BUN H 39(SOL 25)H 36(SOL 24)H 41(SOL 23)H 45(SOL 22) Glucose Random H 103(SOL 25)83(SOL 24)77(SOL 23)H 103(SOL 22) Mg 2.0(SOL 25)L 1.6(SOL 24)2.1(SOL 23)2.3(SOL 20) Phos 3.4(SOL 24)3.1(SOL 20)4.5(SOL 19)H 5.0(SOL 18) Ca L 8.3(SOL 25)9.2(SOL 24)9.0(SOL 23)9.5(SOL 22) PT 13.2(SOL 18) INR 1.00(SOL 18) PTT 28.1(SOL 18) Troponin 0.13(SOL 19)0.15(SOL 18)0.06(SOL 18) Total CK 81(SOL 18) Extracted from: Title: History and Physical Author: Dona Lyles MD te: 04/13/20 # BLE weakness # Urinary retention # Hx of ankylosing spondylosis - MRI thoracic/lumbar spine ordered to r /o WILY - PT/OT eval # Acute on chronic hypoxic respiratory failure # Acute on chronic systolic CHF exacerbation - [facility] 10/2019 with EF 45-50% - 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 - will hold PO pain medications - cpap while sleeping - pain management consult # ALISON on CKD 3 - follows with Dr. Mendez - concern for obstruction or urinary ret ention - renal U/S and lytes pending # Atrial fibrillation s/p watchman procedure - resume home meds when available # Left elbow wound - f/u with Dr Forte 2 weeks - resume IV vanc - pharmacy dosing - has right arm PICC # Left foot wound vac # Chronic BLE lymphedema - wound care consulted # Chronic low back pain - has dilaudid pump, additionally on lid ocaine patch and muscle relaxants - pain management consulted # DM 2 - hold PO meds - SSI # COPD without acute exacerbation # Chronic hypoxic respiratory failure - onhome O2 3-4L NC - resume home meds when available # Hypothyroidism - check TSH/T4 - resume home meds when avialable # MJ - cpap while sleeping lovenox > 2 MNs
--- OUTSIDE RECORDS SUMMARY | 2020-06-12 21:16 | XMS REPORT | Continuity of Care Document ---
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 0.5 gm = 0.5 tab, PO, BID, 0 Refill(s) Active 04/07/2020 [facility] metoprolol tartrate 25 mg oral tablet 12.5 mg = 0.5 tab, PO, BID, 0 Refill(s) Active 04/07/2020 [facility] Pramipexole dihydrochloride 0.25 MG Oral Tablet [Mirapex] 0.25 mg = 1 tab, PO, Bedtime, 0 Refill(s) Active 04/07/2020 [facility] 24 HR mirabegron 50 MG Extended Release Tablet [Myrbetriq] 50 mg = 1 tab, PO, QPM, # 30 tab, 0 Refill(s) Active 04/07/2020 [facility] potassium chloride 20 mEq oral tablet, e xtended release (KCL) 20 mEq = 1 tab, PO, Daily, # 30 tab, 3 Refill(s) Active 04/07/2020 [facility] rOPINIRole 0.5 mg oral tablet 0.5 mg = 1 tab, PO, BID, 0 Refill(s) Active 04/07/2020 [facility] predniSONE 20 mg oral tablet 2 0 mg = 1 tab, PO, QAM, 0 Refill(s) Active 04/07/2020 [facility] predniSONE 10 mg oral tablet 1 0 mg = 1 tab, PO, QPM, 0 Refill(s) Active 04/07/2020 [facility] Sertraline 50 MG Oral Tablet [Zoloft] 50 mg = 1 tab, PO, QPM, # 30 tab, 1 Refill(s) Active 04/07/2020 [facility] Tamsulosin hydrochloride 0.4 MG Oral Capsule [Flomax] 0.4 mg = 1 cap, PO, BID, 0 Refill(s) Active 04/07/2020 [facility] Testosterone Cypionate 200 mg/mL intramuscular solutio n 200 mg = 1 ml, IM, q2wk, 0 Refill(s) Active 04/07/2020 [facility] Insulin regular Notes: (Same a s: Humulin R) Roll in palms of hands gently; Do not shake vigorously. WASTE: F/P - Black; E - Municipal Trash Bin Stable for 31 days at room temperature Expires in days from Date Inactive 04/07/2020 [facility] sugammadex (ANES) Route: IV, D rug form: SOLN, ONCE, Stop date: 04/07/20 10:24:00 CDT Inactive 04/07/2020 [facility] norepinephrine (ANES) Route: I V, Drug form: INJ, ONCE, Stop date: 04/07/20 10:18:00 CDT Inactive 04/07/2020 [facility] sugammadex Notes: (Same as: Br idion) No Longer Active 04/07/2020 [facility] albuterol (ANES) Route: INHALA TION, Drug form: AERO/A, ONCE, Stop date: 04/07/20 9:48:00 CDT Inactive 04/07/2020 [facility] ceFAZolin (ANES) Route: IV, Dr ug form: INJ, ONCE, Stop date: 04/07/20 9:38:00 CDT Inactive 04/07/2020 [facility] fentaNYL (ANES) Route: IV, Tristan g form: INJ, ONCE, Stop date: 04/07/20 9:33:00 CDT Inactive 04/07/2020 [facility] esmolol (ANES) Route: IV, Drug form: INJ, ONCE, Stop date: 04/07/20 9:33:00 CDT Inactive 04/07/2020 [facility] Hydralazine Notes: (Same as: A presoline) Push over 5 minutes Inactive 04/07/2020 [facility] esmolol Notes: (Same as: Brevi bloc) Inactive 04/07/2020 [facility] Labetalol 10 mg, 2 mL, Route: IVP, Drug form: INJ, Q5Min, Dosing Weight 99.2, kg, PRN Elevated BP, Start date: 04/07/20 9:31:00 CDT, Duration: 5 doses or times, Stop date: 04/08/20 0:00:00 CDT, 0 Inactive 04/07/2020 [facility] Acetaminophen Notes: Max aceta minophen 4000 mg/day (4 gm/day). (Same as: Tylenol Extra Strength) Inactive 04/07/2020 [facility] Oxycodone Hydrochloride 5 MG Oral Tablet Notes: (Same as: Roxicodone) Inactive 04/07/2020 [facility] Hydromorphone Notes: Same as D ilaudid Inactive 04/07/2020 [facility] Flumazenil Notes: (Same as: Filomena mazicon) Inactive 04/07/2020 [facility] Naloxone Notes: Same as Narcan Inactive 04/07/2020 [facility] Ondansetron Notes: (Same as: Rosanna santamaria) MEDICATION WASTE Product Size: 4 mg Product Wasted: ___ mg Inactive 04/07/2020 [facility] lidocaine (ANES) Route: IV, Dr ug form: INJ, ONCE, Stop date: 04/07/20 9:28:00 CDT Inactive 04/07/2020 [facility] propofol (ANES) Route: IV, Tristan g form: INJ, ONCE, Stop date: 04/07/20 9:28:00 CDT Inactive 04/07/2020 [facility] rocuronium (ANES) Route: IV, D rug form: INJ, ONCE, Stop date: 04/07/20 9:28:00 CDT Inactive 04/07/2020 [facility] phenylephrine (ANES) Route: IV , Drug form: INJ, ONCE, Stop date: 04/07/20 9:12:00 CDT Inactive 04/07/2020 [facility] sugammadex Notes: (Same as: Br idion) Inactive 04/07/2020 [facility] Saline Flush 0.9% Notes: Same as: BD Posiflush Sterile No Longer Active 04/07/2020 [facility] Clobetasol Propionate 0.0005 MG/MG Topical Ointment Notes: (clobetasol propionate 0.05% 15 gm top OIN) (Same As: Temovate) No Longer Active 04/07/2020 [facility] Vitamin D3 Notes: Same as : Vi tamin D3 No Longer Active 04/07/2020 [facility] 24 HR mirabegron 50 MG Extended Release Tablet [Myrbetriq] Notes: (Same as: Myrbetriq ER) Non-Formulary No Longer Active 04/07/2020 [facility] Dulcolax Laxative Notes: (Same As: Dulcolax, Bisco-Lax) No Longer Active 04/07/2020 [facility] Clonazepam 0.5 mg, 1 tab, Rout e: PO, Drug form: TAB, BID, Dosing Weight 99.2, kg, PRN Anxiety, Start date: 04/07/20 8:51:00 CDT, Duration: 30 day, Stop date: 05/07/20 8:50:00 CDT, 0 No Longer Active 04/07/2020 [facility] Metolazone 5 MG Oral Tablet No bharat: (Same as: Zaroxolyn) No Longer Active 04/07/2020 [facility] Acetaminophen Notes: Do not ex ceed 4 gm/day. (Same as: Tylenol) No Longer Active 04/07/2020 [facility] Acetaminophen 325 MG / Hydrocodone Huber trate 10 MG Oral Tablet Notes: Do not exceed 4gm/day of acetamin ophen. (Same as: [place] 325/10) No Longer Active 04/07/2020 [facility] Hydromorphone Notes: Same as D ilaudid Inactive 04/07/2020 [facility] Ondansetron Notes: (Same as: Rosanna santamaria) MEDICATION WASTE Product Size: 4 mg Product Wasted: ___ mg No Longer Active 04/07/2020 [facility] Saline Flush 0.9% Notes: Same as: BD Posiflush Sterile No Longer Active 04/07/2020 [facility] Methadone Notes: (Same as: Dol ophine) No Longer Active 04/07/2020 [facility] Lactated Ringers Injection IV (ANES) 1000 mL Route: IV, Total Volume: 1,000, Start date: 04/07/20 7:34:00 CDT, Stop date: 04/07/20 8:34:00 CDT Inactive 04/07/2020 [facility] 24 HR mirabegron 50 MG Extended Release Tablet [Myrbetriq] 50 mg = 1 tab, PO, Daily, # 90 tab, 0 Re fill(s), [id number] 04/04/2020 [facility] 10 mg, PO, QPM, 0 Refi ll(s) No Longer Active 04/03/2020 [facility] gabapentin 300 MG Oral Capsule 300 mg = 1 cap, PO, QPM, # 90 cap, 1 Refill(s) No Longe r Active 04/03/2020 [facility] clonazePAM 0.5 mg oral tablet 0.5 mg = 1 tab, PO, BID, PRN anxiety, # 60 tab, 0 Refill(s) No Longer Active 04/03/2020 [facility] methenamine hippurate 25 gm, P O, QAM & PM, 0 Refill(s) No Longer Active 04/03/2020 [facility] tamsulosin 0.4 mg oral capsule 0.4 mg = 1 cap, PO, QAM & PM, # 90 cap, 0 Refill(s) No Longer Active 04/03/2020 [facility] baclofen 10 mg oral tablet 10 mg = 1 tab, PO, QAM & PM, # 270 tab, 0 Refill(s) No Longer Active 04/03/2020 [facility] Glucotrol 2.5 mg, 0.5 tab, Rou te: PO, Drug form: TAB, Before Breakfast, Start date: 11/11/19 10:00:00 WASTE REMOVALIST, Duration: 30 day, Stop date: 12/11/19 7:30:00 WASTE REMOVALIST, 0 Inactive 11/11/2019 [facility] 200 ACTUAT Albuterol 0.09 MG/ACTUAT Mete red Dose Inhaler [ProAir HFA] 180 microgram = 2 puff, INHALATION, Domingo y, 0 Refill(s) Active 11/11/2019 [facility] Oxygen Oxygen, 1 btl, MISC, Be dtime, Refill(s) 0 Active 11/11/2019 [facility] ProAir HFA ProAir HFA, 1 - 2 p uffs, PO, Daily, Refill(s) 0 Active 11/11/2019 [facility] Acetaminophen 300 MG / Codeine Phosphate 30 MG Oral Tablet 1 tab, PO, Q6H, PRN Pain Score 7-10, # 3 0 tab, 0 Refill(s) Active 11/11/2019 [facility] 200 ACTUAT Albuterol 0.09 MG/ACTUAT Mete red Dose Inhaler [ProAir HFA] 180 microgram, 2 puff, Route: INHALATION , Drug Form: AERO/A, Dosing Weight 94.091, kg, Daily, Start date: 11/11/19 9:00:00 WASTE REMOVALIST, Duration: 30 day, Stop date: 12/10/19 9:00:00 WASTE REMOVALIST Inactive 11/11/2019 [facility] ProAir HFA ProAir HFA, 1 - 2 p uffs, Route: PO, Daily, 11/11/19 9:00:00 WASTE REMOVALIST, Duration: 30 day, Stop date: 12/10/19 9:00:00 WASTE REMOVALIST Inactive 11/11/2019 [facility] Allopurinol Notes: (Same as: Z yloprim) Inactive 11/11/2019 [facility] Aspirin 81 MG Enteric Coated Tablet Notes: Do not crush or chew. (Same As: Ecotrin) Inactive 11/11/2019 [facility] Bumetanide Notes: (Same As: [place]) Inactive 11/11/2019 [facility] Vitamin D3 1000 intl units oral tablet Notes: Same as : Vitamin D3 Inactive 11/11/2019 [facility] Clobetasol Propionate 0.0005 MG/MG Topical Ointment Notes: (clobetasol propionate 0.05% 15 gm top OIN) (Same As: Temovate) Inactive 11/11/2019 [facility] clopidogrel Notes: (Same As: P lavix) Inactive 11/11/2019 [facility] Colchicine 0.6 mg, 1 tab, Rout e: PO, Drug form: TAB, Daily, Dosing Weight 94.091, kg, Start date: 11/11/19 9:00:00 WASTE REMOVALIST, Duration: 30 day, Stop date: 12/10/19 9:00:00 WASTE REMOVALIST, 0 Inactive 11/11/2019 [facility] ferrous sulfate Notes: Give wi th food. "Do Not Crush" Inactive 11/11/2019 [facility] Metolazone 5 MG Oral Tablet No bharat: (Same as: Zaroxolyn) Inactive 11/11/2019 [facility] 24 HR mirabegron 50 MG Extended Release Tablet [Myrbetriq] 50 mg, 1 tab, Route: PO, Drug form: ERTA B, Daily, Dosing Weight 94.091, kg, Start date: 11/11/19 9:00:00 WASTE REMOVALIST, Duration: 30 day, Stop date: 12/10/19 9:00:00 WASTE REMOVALIST Inactive 11/11/2019 [facility] Prednisone Notes: (Same as: Pr edniSONE) Take with food. Inactive 11/11/2019 [facility] Xarelto Notes: (Same as: Xarel to) Administer with food Inactive 11/11/2019 [facility] Sertraline Notes: (Same as: Z oloft) Inactive 11/11/2019 [facility] Budesonide 0.25 MG/ML Inhalant Solution Notes: (Same As: Pulmicort) Inactive 11/11/2019 [facility] glimepiride 1 mg, 1 tab, Route : PO, Drug form: TAB, Breakfast, Dosing Weight 94.091, kg, Start date: 11/11/19 8:00:00 WASTE REMOVALIST, Duration: 30 day, Stop date: 12/10/19 8:00:00 WASTE REMOVALIST Inactive 11/11/2019 [facility] Thyroxine 100 microgram, 1 tab , Route: PO, Drug form: TAB, Q630AM, Dosing Weight 94.091, kg, Start date: 11/11/19 6:30:00 WASTE REMOVALIST, Duration: 30 day, Stop date: 12/10/19 6:30:00 WASTE REMOVALIST, 0 Inactive 11/11/2019 [facility] Triiodothyronine Notes: (Same as: Cytomel) Inactive 11/11/2019 [facility] Dilaudid Notes: Same as Dilaud id Inactive 11/11/2019 [facility] Fentanyl 25 microgram, Route: IV, ONCE, Dosing Weight 94.091, kg, Start date: 11/11/19 4:15:00 WASTE REMOVALIST, Stop date: 11/11/19 4:15:00 WASTE REMOVALIST Inactive 11/11/2019 [facility] Saline Flush 0.9% Notes: (Same as: BD Posiflush) No Longer Active 11/11/2019 [facility] Oxygen Oxygen, 1 btl, Route: M ISC, Bedtime, 11/10/19 21:00:00 WASTE REMOVALIST, Duration: 30 day, Stop date: 12/09/19 21:00:00 WASTE REMOVALIST No Longer Active 11/11/2019 [facility] Folic Acid 0.4 mg, 1 tab, Rout e: PO, Drug form: TAB, BID, Dosing Weight 94.091, kg, Start date: 11/10/19 21:00:00 WASTE REMOVALIST, Duration: 30 day, Stop date: 12/10/19 9:00:00 WASTE REMOVALIST, 0 No Longer Active 11/11/2019 [facility] Pramipexole 0.25 mg, 2 tab, Ro demetrio: PO, Drug form: TAB, Bedtime, Dosing Weight 94.091, kg, Start date: 11/10/19 21:00:00 WASTE REMOVALIST, Duration: 30 day, Stop date: 12/09/19 21:00:00 WASTE REMOVALIST No Longer Active 11/11/2019 [facility] ropinirole 0.5 mg, Route: PO, Drug form: TAB, Bedtime, Dosing Weight 94.091, kg, Start date: 11/10/19 21:00:00 WASTE REMOVALIST, Duration: 30 day, Stop date: 12/09/19 21:00:00 WASTE REMOVALIST No Longer Active 11/11/2019 [facility] Albuterol 0.83 MG/ML Inhalant Solution Notes: SEE RT DOCUMENTATION (Same as: Proventil) No Longer Active 11/11/2019 [facility] latanoprost Notes: Keep refrig erated. (Same as:Xalatan) Opened bottle may be stored at room temperature for 6 weeks No Longer Active 11/10/2019 [facility] 24 HR Metoprolol Tartrate 25 MG Extended Release Tablet [Toprol] Notes: (Same as: Toprol XL) Do Not Crush 12.5 mg = 1/2 x 25 mg TAB No Longer Active 11/10/2019 [facility] Potassium Chloride Notes: (Manfred e as: K-Dur 20) "Do Not Crush" Give with food and full glass of water For patients unable to swallow tablet, dissolve in one half glass of water. Allow about 2 minutes for the tab lets to disintegrate. Stir before giving to prepare slurry and administer. Please exclude Patients with feeding tube less than 14 Estonian (Dobhoff, J-tube etc) and pediatric and patients. No Longer Active 11/10/2019 [facility] Alprazolam 0.5 MG Oral Tablet Notes: With food or milk (Same as: Xanax) No Longer Active 11/10/2019 [facility] Dulcolax Laxative Notes: (Same As: Dulcolax, Bisco-Lax) No Longer Active 11/10/2019 [facility] acetaminophen-codeine #3 Notes : Do not exceed 4gm/day of acetaminophen. (Same as: Tylenol with Codeine # 3) No Longer Active 11/10/2019 [facility] Saline Flush 0.9% Notes: (Same as: BD Posiflush) No Longer Active 11/10/2019 [facility] protamine (ANES) Route: IV, Dr ug form: INJ, ONCE, Stop date: 11/10/19 15:12:00 WASTE REMOVALIST Inactive 11/10/2019 [facility] glycopyrrolate (ANES) Route: I V, Drug form: INJ, ONCE, Stop date: 11/10/19 15:12:00 WASTE REMOVALIST Inactive 11/10/2019 [facility] neostigmine (ANES) Route: IV, Drug form: INJ, ONCE, Stop date: 11/10/19 15:12:00 WASTE REMOVALIST Inactive 11/10/2019 [facility] norepinephrine (ANES) Route: I V, Drug form: INJ, ONCE, Stop date: 11/10/19 14:39:00 WASTE REMOVALIST Inactive 11/10/2019 [facility] heparin (ANES) Route: IV, Drug form: INJ, ONCE, Stop date: 11/10/19 14:39:00 WASTE REMOVALIST Inactive 11/10/2019 [facility] propofol (ANES) Route: IV, Tristan g form: INJ, ONCE, Stop date: 11/10/19 14:34:00 WASTE REMOVALIST Inactive 11/10/2019 [facility] ceFAZolin (ANES) Route: IV, ug form: INJ, ONCE, Stop date: 11/10/19 14:34:00 WASTE REMOVALIST Inactive 11/10/2019 [facility] lidocaine (ANES) Route: IV, Dr ug form: INJ, ONCE, Stop date: 11/10/19 14:18:00 WASTE REMOVALIST Inactive 11/10/2019 [facility] rocuronium (ANES) Route: IV, D rug form: INJ, ONCE, Stop date: 11/10/19 14:18:00 WASTE REMOVALIST Inactive 11/10/2019 [facility] fentaNYL (ANES) Route: IV, Tristan g form: INJ, ONCE, Stop date: 11/10/19 14:18:00 WASTE REMOVALIST Inactive 11/10/2019 [facility] Fentanyl Notes: (Same as: Subl imaze) Preservative free. No Longer Active 11/10/2019 [facility] Hydromorphone Notes: Same as D ilaudid No Longer Active 11/10/2019 [facility] Flumazenil Notes: (Same as: Ro mazicon) No Longer Active 11/10/2019 [facility] Naloxone Notes: Same as Narcan No Longer Active 11/10/2019 [facility] Diphenhydramine Notes: (Same a s: Benadryl) No Longer Active 11/10/2019 [facility] Ondansetron Notes: (Same as: Rosanna santamaria) MEDICATION WASTE Product Size: 4 mg Product Wasted: ___ mg No Longer Active 11/10/2019 [facility] norepinephrine (ANES) 10 microgram Route: IV, Drug form: INJ, Start date: 11/10/19 13:51:00 WASTE REMOVALIST, Stop date: 11/10/19 14:51:00 WASTE REMOVALIST Inactive 11/10/2019 [facility] Sodium Chloride 0.9% IV (ANES) 1000 mL Route: IV, Total Volume: 1,000, Start date: 11/10/19 13:29:00 WASTE REMOVALIST, Stop date: 11/10/19 14:29:00 WASTE REMOVALIST Inactive 11/10/2019 [facility] methenamine hippurate 1 g oral tablet 1 gm = 1 tab, PO, BID, 0 Refill(s) Active 11/10/2019 [facility] Metolazone 5 MG Oral Tablet 5 mg = 1 tab, PO, Daily, 0 Refill(s) Active 11/10/2019 [facility] predniSONE 10 mg oral tablet 1 0 mg = 1 tab, PO, Daily, 3 Refill(s) Active 11/10/2019 [facility] ferrous sulfate 325 mg oral enteric coated tablet 325 mg = 1 tab, PO, Daily, 0 Refill(s) Active 11/10/2019 [facility] glimepiride 1 mg oral tablet 1 mg = 1 tab, PO, Breakfast, 0 Refill(s) Active 11/10/2019 [facility] Albuterol 0.83 MG/ML Inhalant Solution 2.5 mg = 3 mL, NEB, BID, am/pm, 0 Refill(s) Active 11/10/2019 [facility] Sodium Chloride 0.9% IV 1,000 mL 1,000 ml, Rate: 50 ml/hr, Infuse over: 20 hr, Route: IV, Dosing Weight 94.091 kg, Total Volume: 1,000, Start date: 11/10/19 10:52:00 WASTE REMOVALIST, Duration: 30 day, Stop date: 12/10/19 10:51:00 WASTE REMOVALIST, 2.16, m2, 0 No Longer Active 11/10/2019 [facility] nter Bacitracin 0.5 UNT/MG / Polymyxin B 10 U NT/MG Topical Ointment 1 appl, TOP, QID, # 30 gm, 0 Refill(s) Active 10/17/2019 [facility] nter Albuterol 0.83 MG/ML Inhalant Solution Notes: SEE RT DOCUMENTATION (Same as: Madhuri) Inactive 10/17/2019 [facility] nter Bacitracin 0.5 UNT/MG Topical Ointment 1 appl, Route: TOP, ONCE, Drug form: OINT, Start date: 10/16/19 18:58:00 WASTE REMOVALIST, Stop date: 10/16/19 18:58:00 WASTE REMOVALIST, 0 Inactive 10/17/2019 [facility] nter 24 HR mirabegron 50 MG Extended Release Tablet [Myrbetriq] 50 mg = 1 tab, PO, Daily, # 90 tab, 1 Re fill(s), Pharmacy: [facility] #[id number] Active 06/02/2019 [facility] Levofloxacin 500 MG Oral Tablet [Levaquin] 500 mg = 1 tab, PO, Q24H, X 7 day, # 7 tab, 0 Refill(s), Pharmacy: [id number] Active 05/18/2019 [facility] allopurinol 300 mg oral tablet 300 mg = 1 tab, PO, Daily, # 90 tab, 1 Refill(s) Active 04/19/2019 [facility] methenamine hippurate 1 gm, PO , Daily, 0 Refill(s) Active 04/19/2019 [facility] Dulcolax Laxative = 1 supp, [place] , Daily, PRN constipation, # 5 supp, 0 Refill(s) Active 04/19/2019 [facility] Colchicine 0.6 mg, PO, Daily, 0 Refill(s) Active 04/19/2019 [facility] Fosfomycin 33.3 MG/ML Oral Suspension [Monurol] = 1 Pack, PO, ONCE, # 3 gm, 0 Refill(s), Pharmacy: [facility] [id number] Active 12/03/2018 [facility] Hydrochlorothiazide 50 MG / Spironolacto ne 50 MG Oral Tablet [Aldactazide] 1 tab, PO, PRN, 0 Refill(s) Active 11/30/2018 [facility] baclofen 10 mg oral tablet 10 mg = 1 tab, PO, TID, # 90 tab, 0 Refill(s) Active 11/30/2018 [facility] Budesonide 0.25 MG/ML Inhalant Solution 0.5 mg = 2 mL, NEB, Daily, # 60 ea, 11 Refill(s) Active 11/30/2018 [facility] carisoprodol 350 mg oral tablet 350 mg = 1 tab, PO, TID, PRN Muscle Spasms, # 42 tab, 0 Refill(s) Active 11/30/2018 [facility] Clobetasol Propionate 0.0005 MG/MG Topical Ointment TOP, Daily, 0 Refill(s) Active 11/30/2018 [facility] clopidogrel 75 mg oral tablet 75 mg = 1 tab, PO, Daily, # 30 tab, 0 Refill(s) Active 11/30/2018 [facility] 1 ML secukinumab 150 MG/ML Prefilled Syringe [Cosentyx ] SUB-Q, q4wk, 0 Refill(s) Activ e 11/30/2018 [facility] Ferocon oral capsule PO, Daily , 0 Refill(s) Active 11/30/2018 [facility] furosemide 80 mg oral tablet 8 0 mg = 1 tab, PO, Daily, # 30 tab, 0 Refill(s) Active 11/30/2018 [facility] hydromorphone 8 mg oral tablet 8 mg = 1 tab, PO, BID, PRN Pain, 0 Refill(s) Active 11/30/2018 [facility] Sodium Chloride 1.2 MEQ/ML Inhalant Solu tion [Hyper-Lamine] PRN, 0 Refill(s) Active 11/30/2018 [facility] Oxygen 1 btl, MISC, Bedtime, # 1 btl, 0 Refill(s) Active 11/30/2018 [facility] pantoprazole 40 mg oral enteric coated tablet 40 mg = 1 tab, PO, Daily, # 30 tab, 0 Refill(s) Active 11/30/2018 [facility] Potassium Chloride 20 mEq, BID , 0 Refill(s) Active 11/30/2018 [facility] pramipexole 0.125 mg oral tablet 0.125 mg = 1 tab, PO, Bedtime, # 30 tab, 1 Refill(s) Active 11/30/2018 [facility] 200 ACTUAT Albuterol 0.09 MG/ACTUAT Mete red Dose Inhaler [ProAir HFA] 2 puff, INHALATION, Daily, 0 Refill(s) Active 11/30/2018 [facility] non-formulary RAPATHA INJECTIO N 140MG Q2WEEK, Refill(s) 0 Active 11/30/2018 [facility] rOPINIRole 0.5 mg oral tablet 0.5 mg = 1 tab, PO, Bedtime, # 30 tab, 1 Refill(s) Active 11/30/2018 [facility] sertraline 50 mg oral tablet 5 0 mg = 1 tab, PO, Daily, # 30 tab, 0 Refill(s) Active 11/30/2018 [facility] rivaroxaban 15 MG Oral Tablet [Xarelto] 15 mg = 1 tab, PO, Daily, # 90 tab, 3 Refill(s) Active 11/30/2018 [facility] Aspirin 81 MG Enteric Coated Tablet 81 mg = 1 tab, PO, Daily, # 90 tab, 3 Refill(s) Active 11/30/2018 [facility] Folic Acid 400 MCG, BID, 0 Ref ill(s) Active 11/30/2018 [facility] Mucus Relief DM PO, BID, 0 Ref ill(s) Active 11/30/2018 [facility] Vitamin B12 Methylcobalamin SL , qWeek, 0 Refill(s) Active 11/30/2018 [facility] Vitamin D3 2000 intl units oral capsule 2,000 IntlUnit = 1 cap, PO, Daily, # 100 cap, 3 Refill(s) Active 11/30/2018 [facility] 24 HR mirabegron 50 MG Extended Release Tablet [Myrbetriq] See Instructions, TAKE 1 TABLET BY MOUTH EVERY DAY, # 90 tab, 0 Refill(s), [id number], please have patient call for appt prior to next refill Active 11/05/2018 [facility] Allergies, Adverse Reactions, Alerts Substance Category Reaction Severity Reaction type Status Date Reported Comments Source No Known Medication Allergies Assertion Drug aller gy [facility] Lyrica<sup>1</sup> Assertion Drug allergy Active R[facility] Immunizations Immunization Date Given Site Status Last Updated Comments Source diphtheria/pertussis, acel/tetanus adult 10/17/2019 Right deltoid completed [place] [facility] Results Order Name Results Value Reference Range Date Interpretation Comments Source ELECTROLYTES Potassium Lvl 3.2 3.5 - 5.1 04/20/2020 [facility] CHEM PANEL Magnesium Lvl 2.0 1.8 - 2.4 04/20/2020 [facility] CHEM PANEL Glucose Lvl 103 70 - 99 04/20/2020 [facility] CHEM PANEL BUN 39 7 - 22 04/20/2020 [facility] CHEM PANEL Creatinine Lvl 1.56 0.50 - 1.40 04/20/2020 [facility] CHEM PANEL Sodium Lvl 136 135 - 145 04/20/2020 [facility] CHEM PANEL Potassium Lvl 2.8 3.5 - 5.1 04/20/2020 Result Comment: Critical Result(s) harrison d to Aiden Cerda at 04/20/2020 07:23 by ANNABELLE. Read back OK. [facility] CHEM PANEL Chloride Lvl 97 95 - 109 04/20/2020 [facility] CHEM PANEL CO2 33 24 - 32 04/20/2020 [facility] CHEM PANEL AGAP 8.8 10.0 - 20.0 04/20/2020 [facility] CHEM PANEL Calcium Lvl 8.3 8.5 - 10.5 04/20/2020 [facility] CHEM PANEL eGFR 43 04/20/2020 Result Comment: The eGFR is calculated using [...] should be multiplied by the estimated BMI. [facility] RBC Morph Kay l (04/20/20 6:15 AM) Normal 04/20/2020 [facility] Plt Morph Kay l (04/20/20 6:15 AM) Normal 04/20/2020 [facility] Segs 73.4 45.0 - 75.0 04/20/2020 [facility] Lymphocytes 16.9 20.0 - 40.0 04/20/2020 [facility] Monocytes 7.8 2.0 - 12.0 04/20/2020 [facility] Eosinophils 1.0 0.0 - 4.0 04/20/2020 [facility] Basophils 0.9 0.0 - 1.0 04/20/2020 [facility] Neutrophils # 3.5 1.5 - 8.1 04/20/2020 [facility] Lymphocytes # 0.8 1.0 - 5.5 04/20/2020 [facility] Monocytes # 0.4 0.0 - 0.8 04/20/2020 [facility] Eosinophils # 0.1 0.0 - 0.5 04/20/2020 [facility] WBC 4.8 3.7 - 10.4 04/20/2020 [facility] RBC 4.39 4.70 - 6.10 04/20/2020 [facility] Hgb 12.1 14.0 - 18.0 04/20/2020 [facility] Hct 38.3 42.0 - 54.0 04/20/2020 [facility] MCV 87.2 80.0 - 94.0 04/20/2020 [facility] MCH 27.5 27.0 - 31.0 04/20/2020 [facility] MCHC 31.5 32.0 - 36.0 04/20/2020 [facility] RDW 19.6 11.5 - 14.5 04/20/2020 [facility] Platelet 183 133 - 450 04/20/2020 [facility] HEMATOLOGY MPV 8.0 7.4 - 10.4 04/20/2020 [facility] TOXICOLOGY Vanco Tr 17.2 04/19/2020 [facility] TOXICOLOGY Vanco Tr TND 1330 04/19/2020 [facility] CHEM PANEL Glucose Lvl 83 70 - 99 04/19/2020 [facility] CHEM PANEL BUN 36 7 - 22 04/19/2020 [facility] CHEM PANEL Creatinine Lvl 1.50 0.50 - 1.40 04/19/2020 [facility] CHEM PANEL Sodium Lvl 138 135 - 145 04/19/2020 [facility] CHEM PANEL Potassium Lvl 3.1 3.5 - 5.1 04/19/2020 [facility] CHEM PANEL Chloride Lvl 100 95 - 109 04/19/2020 [facility] CHEM PANEL CO2 35 24 - 32 04/19/2020 [facility] CHEM PANEL Calcium Lvl 9.2 8.5 - 10.5 04/19/2020 [facility] CHEM PANEL AGAP 6.1 10.0 - 20.0 04/19/2020 [facility] CHEM PANEL eGFR 45 04/19/2020 Result Comment: The eGFR is calculated using [...] should be multiplied by the estimated BMI. [facility] CHEM PANEL Magnesium Lvl 1.6 1.8 - 2.4 04/19/2020 [facility] CHEM PANEL Phosphorus 3.4 2.5 - 4.5 04/19/2020 [facility] HEMATOLOGY Plt Morph Kay l (04/19/20 5:04 AM) Normal 04/19/2020 [facility] HEMATOLOGY Segs 76.2 45.0 - 75.0 04/19/2020 [facility] HEMATOLOGY Lymphocytes 15.3 20.0 - 40.0 04/19/2020 [facility] HEMATOLOGY Monocytes 7.2 2.0 - 12.0 04/19/2020 [facility] HEMATOLOGY Eosinophils 0.6 0.0 - 4.0 04/19/2020 [facility] HEMATOLOGY Basophils 0.7 0.0 - 1.0 04/19/2020 [facility] HEMATOLOGY Neutrophils # 3.5 1.5 - 8.1 04/19/2020 [facility] HEMATOLOGY Lymphocytes # 0.7 1.0 - 5.5 04/19/2020 [facility] HEMATOLOGY Monocytes # 0.3 0.0 - 0.8 04/19/2020 [facility] HEMATOLOGY Hypochrom 1+ (04/19/20 5:04 AM) None Seen 04/19/2020 [facility] HEMATOLOGY WBC 4.6 3.7 - 10.4 04/19/2020 [facility] HEMATOLOGY RBC 4.73 4.70 - 6.10 04/19/2020 [facility] Hgb 12.8 14.0 - 18.0 04/19/2020 [facility] HEMATOLOGY Hct 41.5 42.0 - 54.0 04/19/2020 [facility] HEMATOLOGY MCV 87.8 80.0 - 94.0 04/19/2020 [facility] MCH 27.1 27.0 - 31.0 04/19/2020 [facility] MCHC 30.8 32.0 - 36.0 04/19/2020 [facility] HEMATOLOGY RDW 19.5 11.5 - 14.5 04/19/2020 [facility] HEMATOLOGY Platelet 194 133 - 450 04/19/2020 [facility] MPV 7.8 7.4 - 10.4 04/19/2020 [facility] CHEM PANEL Glucose Lvl 77 70 - 99 04/18/2020 [facility] CHEM PANEL BUN 41 7 - 22 04/18/2020 [facility] CHEM PANEL Creatinine Lvl 1.60 0.50 - 1.40 04/18/2020 [facility] CHEM PANEL Sodium Lvl 138 135 - 145 04/18/2020 [facility] CHEM PANEL Chloride Lvl 98 95 - 109 04/18/2020 [facility] CHEM PANEL CO2 37 24 - 32 04/18/2020 [facility] CHEM PANEL AGAP 6.0 10.0 - 20.0 04/18/2020 [facility] CHEM PANEL Calcium Lvl 9.0 8.5 - 10.5 04/18/2020 [facility] CHEM PANEL eGFR 42 04/18/2020 Result Comment: The eGFR is calculated using [...] should be multiplied by the estimated BMI. [facility] CHEM PANEL Magnesium Lvl 2.1 1.8 - 2.4 04/18/2020 [facility] HEMATOLOGY WBC 4.8 3.7 - 10.4 04/18/2020 [facility] HEMATOLOGY RBC 4.57 4.70 - 6.10 04/18/2020 [facility] Hgb 12.5 14.0 - 18.0 04/18/2020 [facility] Hct 40.3 42.0 - 54.0 04/18/2020 [facility] MCV 88.3 80.0 - 94.0 04/18/2020 [facility] MCH 27.3 27.0 - 31.0 04/18/2020 [facility] MCHC 30.9 32.0 - 36.0 04/18/2020 [facility] RDW 19.9 11.5 - 14.5 04/18/2020 [facility] Platelet 196 133 - 450 04/18/2020 [facility] MPV 7.9 7.4 - 10.4 04/18/2020 [facility] Plt Morph Kay l (04/18/20 6:25 AM) Normal 04/18/2020 [facility] HEMATOLOGY Segs 73.6 45.0 - 75.0 04/18/2020 [facility] Lymphocytes 17.5 20.0 - 40.0 04/18/2020 [facility] Monocytes 8.1 2.0 - 12.0 04/18/2020 [facility] HEMATOLOGY Eosinophils 0.3 0.0 - 4.0 04/18/2020 [facility] HEMATOLOGY Basophils 0.5 0.0 - 1.0 04/18/2020 [facility] HEMATOLOGY Neutrophils # 3.6 1.5 - 8.1 04/18/2020 [facility] HEMATOLOGY Lymphocytes # 0.8 1.0 - 5.5 04/18/2020 [facility] HEMATOLOGY Monocytes # 0.4 0.0 - 0.8 04/18/2020 [facility] HEMATOLOGY Anisocyte 1+ *ABN* (04/18/20 6:25 AM) None Seen 04/18/2020 [facility] HEMATOLOGY Hypochrom 1+ (04/18/20 6:25 AM) None Seen 04/18/2020 [facility] TOXICOLOGY Vanco Lvl 15.8 04/17/2020 [facility] TOXICOLOGY Vanco Lvl 17.9 04/16/2020 [facility] CARDIAC ENZYMES BNP 420 <=100 pg/mL 04/15/2020 [facility] CHEM PANEL Phosphorus 3.1 2.5 - 4.5 04/15/2020 [facility] Basophils # 0.1 0.0 - 0.2 04/15/2020 [facility] Hypochrom 1+ (04/15/20 5:56 AM) None Seen 04/15/2020 [facility] TOXICOLOGY Vanco Lvl 25.5 04/14/2020 [facility] BACTERIAL - SEROLOGY MRSA by PCR Negative (04/14/20 7:47 AM) 04/14/2020 [facility] CARDIAC ENZYMES Troponin-I 0.13 0.00 - 0.40 04/14/2020 [facility] CHEM PANEL Phosphorus 4.5 2.5 - 4.5 04/14/2020 [facility] Sed Rate 54 0 - 15 04/14/2020 [facility] C-REACTIVE PROTEIN 106.0 <=2.9 mg/L 04/14/2020 [facility] CARDIAC ENZYMES Troponin-I 0.15 0.00 - 0.40 04/13/2020 [facility] IMMUNOLOGY Spec Type (UPE) rando m, 100x 04/13/2020 [facility] IMMUNOLOGY Tot Prot (UPE) 31 04/13/2020 [facility] IMMUNOLOGY Interp (UPE) Urine protein consists primarily of albumin. No monoclonal bands are identified. Interpretation performed at [facility]. 04/13/2020 [facility] URINE AND STOOL UA Turbidity Slight *ABN* (04/13/20 5:27 PM) Clear 04/13/2020 [facility] URINE AND STOOL UA Spec Grav 1.017 <=1.030 04/13/2020 [facility] URINE AND STOOL UA pH 5.0 5.0 - 8.0 04/13/2020 [facility] URINE AND STOOL UA Protein Negative mg/dL Negative mg/dL 04/13/2020 [facility] URINE AND STOOL UA Glucose Negative mg/dL Negative mg/dL 04/13/2020 [facility] URINE AND STOOL UA Ketones Negative mg/dL Negative mg/dL 04/13/2020 [facility] URINE AND STOOL UA Bili Negative *NA* (04/13/20 5:27 PM) Negative 04/13/2020 [facility] URINE AND STOOL UA Blood Negative (04/13/20 5:27 PM) Negative 04/13/2020 [facility] URINE AND STOOL UA Nitrite Positive *ABN* (04/13/20 5:27 PM) Negative 04/13/2020 [facility] URINE AND STOOL UA Leuk Est Negative (04/13/20 5:27 PM) Negative 04/13/2020 [facility] URINE AND STOOL UA Sq Epi Occasional /LPF Few /LPF 04/13/2020 [facility] URINE AND STOOL UA WBC 2 0 - 5 04/13/2020 [facility] URINE AND STOOL UA RBC 1 0 - 2 04/13/2020 [facility] URINE AND STOOL UA Bacteria Occasional /HPF None Seen /HPF 04/13/2020 [facility] URINE AND STOOL UA Hyal Cast 83 0 - 2 04/13/2020 [facility] URINE AND STOOL UA Color Demi 04/13/2020 [facility] URINE AND STOOL UA Urobilinogen <=1.0 mg/dL 0.1 - 1.0 04/13/2020 [facility] URINE CHEM U Prot/Creat 0.17 04/13/2020 [facility] URINE CHEM U Creatinine 206.00 04/13/2020 [facility] URINE CHEM U Sodium 12 04/13/2020 [facility] URINE CHEM U Protein 36.0 04/13/2020 [facility] URINE CHEM U Eos None Seen (04/13/20 5:27 PM) None Seen 04/13/2020 [facility] CARDIAC ENZYMES BNP 443 <=100 pg/mL 04/13/2020 [facility] CARDIAC ENZYMES Total CK 81 12 - 191 04/13/2020 [facility] CARDIAC ENZYMES Troponin-I 0.06 0.00 - 0.40 04/13/2020 [facility] CHEM PANEL Procalcitonin Lvl 0.58 0.00 - 0.10 04/13/2020 [facility] CHEM PANEL Total Protein 6.1 6.4 - 8.4 04/13/2020 [facility] CHEM PANEL Albumin Lvl 2.6 3.5 - 5.0 04/13/2020 [facility] CHEM PANEL ALT 21 0 - 65 04/13/2020 [facility] CHEM PANEL AST 25 0 - 37 04/13/2020 [facility] CHEM PANEL Alk Phos 75 39 - 136 04/13/2020 [facility] CHEM PANEL Bili Total 0.5 0.2 - 1.3 04/13/2020 [facility] CHEM PANEL B/C Ratio 23 6 - 25 04/13/2020 [facility] CHEM PANEL Globulin 3.5 2.7 - 4.2 04/13/2020 [facility] CHEM PANEL A/G Ratio 0.7 0.7 - 1.6 04/13/2020 [facility] CHEM PANEL Lactic Acid Lvl 2.0 0.5 - 2.2 04/13/2020 [facility] HEMATOLOGY D-Dimer 0.94 04/13/2020 [facility] HEMATOLOGY PT 13.2 12.0 - 14.7 04/13/2020 [facility] HEMATOLOGY INR 1.00 0.85 - 1.17 04/13/2020 [facility] HEMATOLOGY PTT 28.1 22.9 - 35.8 04/13/2020 [facility] DIAGNOSTIC S. aureus Not Detected (04/13/20 10:56 AM) Not Detected 04/13/2020 [facility] DIAGNOSTIC S. epidermidis Detected *ABN* (04/13/20 10:56 AM) Not Detected 04/13/2020 [facility] S. lugdunensis Not Detected (04/13/20 10:56 AM) Not Detected 04/13/2020 [facility] DIAGNOSTIC S. anginosus gr p Not Detected (04/13/20 10:56 AM) Not Detected 04/13/2020 [facility] DIAGNOSTIC S. agalactiae Not Detected (04/13/20 10:56 AM) Not Detected 04/13/2020 [facility] DIAGNOSTIC S. pneumoniae Not Detected (04/13/20 10:56 AM) Not Detected 04/13/2020 [facility] DIAGNOSTIC S. pyogenes Not Detected (04/13/20 10:56 AM) Not Detected 04/13/2020 [facility] DIAGNOSTIC E. faecalis Not Detected (04/13/20 10:56 AM) Not Detected 04/13/2020 [facility] E. faecium Not Detected (04/13/20 10:56 AM) Not Detected 04/13/2020 [facility] Staphylococcus spp. Detected *ABN* (04/13/20 10:56 AM) Not Detected 04/13/2020 [facility] Streptococcus s pp. Not Detected (04/13/20 10:56 AM) Not Detected 04/13/2020 [facility] Listeria spp. Not Detected (04/13/20 10:56 AM) Not Detected 04/13/2020 [facility] mecA Methicilli n Resistance Detected *ABN* (04/13/20 10:56 AM) Not Detected 04/13/2020 [facility] Daisha Vancomycin Resistance Not Detected (04/13/20 10:56 AM) Not Detected 04/13/2020 [facility] vanB Vancomycin Resistance Not Detected (04/13/20 10:56 AM) Not Detected 04/13/2020 [facility] TOXICOLOGY Vanco Tr 17.9 04/12/2020 [facility] TOXICOLOGY Vanco Tr TND 1930 04/12/2020 [facility] CHEM PANEL Glucose Lvl 108 70 - 99 04/10/2020 [facility] CHEM PANEL BUN 64 7 - 22 04/10/2020 [facility] CHEM PANEL Creatinine Lvl 1.77 0.50 - 1.40 04/10/2020 [facility] CHEM PANEL Sodium Lvl 136 135 - 145 04/10/2020 [facility] CHEM PANEL Potassium Lvl 3.7 3.5 - 5.1 04/10/2020 [facility] CHEM PANEL Chloride Lvl 91 95 - 109 04/10/2020 [facility] CHEM PANEL CO2 42 24 - 32 04/10/2020 Result Comment: Critical Result(s) called to Margarette Mathew at 04/10/2020 06:21 by . Read back OK. [facility] CHEM PANEL AGAP 6.7 10.0 - 20.0 04/10/2020 [facility] CHEM PANEL Calcium Lvl 9.2 8.5 - 10.5 04/10/2020 [facility] CHEM PANEL eGFR 37 04/10/2020 Result Comment: The eGFR is calculated using [...] should be multiplied by the estimated BMI. [facility] TOXICOLOGY Vanco Tr 17.8 04/10/2020 [facility] TOXICOLOGY Vanco Tr TND 2000 04/10/2020 [facility] CHEM PANEL Glucose Lvl 136 70 - 99 04/09/2020 [facility] CHEM PANEL BUN 69 7 - 22 04/09/2020 [facility] CHEM PANEL Creatinine Lvl 2.00 0.50 - 1.40 04/09/2020 [facility] CHEM PANEL Sodium Lvl 137 135 - 145 04/09/2020 [facility] CHEM PANEL Potassium Lvl 4.1 3.5 - 5.1 04/09/2020 [facility] CHEM PANEL Chloride Lvl 91 95 - 109 04/09/2020 [facility] CHEM PANEL CO2 35 24 - 32 04/09/2020 [facility] CHEM PANEL AGAP 15.1 10.0 - 20.0 04/09/2020 [facility] CHEM PANEL Calcium Lvl 9.5 8.5 - 10.5 04/09/2020 [facility] CHEM PANEL eGFR 32 04/09/2020 Result Comment: The eGFR is calculated using [...] should be multiplied by the estimated BMI. [facility] TOXICOLOGY Vanco Lvl 16.5 04/08/2020 [facility] CHEM PANEL Glucose Lvl 194 70 - 99 04/08/2020 [facility] CHEM PANEL BUN 65 7 - 22 04/08/2020 [facility] CHEM PANEL Creatinine Lvl 1.88 0.50 - 1.40 04/08/2020 [facility] CHEM PANEL Sodium Lvl 135 135 - 145 04/08/2020 [facility] CHEM PANEL Potassium Lvl 2.8 3.5 - 5.1 04/08/2020 Result Comment: Critical Result(s) harrison d to Filippo Gaona at 04/08/2020 11:26 by RG. Read back OK. [facility] CHEM PANEL Chloride Lvl 85 95 - 109 04/08/2020 [facility] CHEM PANEL CO2 43 24 - 32 04/08/2020 Result Comment: Critical Result(s) called to Filippo Gaona at 04/08/2020 11:27 by RG. Read back OK. [facility] CHEM PANEL AGAP 9.8 10.0 - 20.0 04/08/2020 [facility] CHEM PANEL Calcium Lvl 9.1 8.5 - 10.5 04/08/2020 [facility] CHEM PANEL eGFR 34 04/08/2020 Result Comment: The eGFR is calculated using [...] should be multiplied by the estimated BMI. [facility] HEMATOLOGY WBC 7.3 3.7 - 10.4 04/08/2020 [facility] HEMATOLOGY RBC 4.74 4.70 - 6.10 04/08/2020 [facility] HEMATOLOGY Hgb 12.8 14.0 - 18.0 04/08/2020 [facility] HEMATOLOGY Hct 41.2 42.0 - 54.0 04/08/2020 [facility] HEMATOLOGY MCV 86.8 80.0 - 94.0 04/08/2020 [facility] HEMATOLOGY MCH 27.0 27.0 - 31.0 04/08/2020 [facility] HEMATOLOGY MCHC 31.1 32.0 - 36.0 04/08/2020 [facility] HEMATOLOGY RDW 20.1 11.5 - 14.5 04/08/2020 [facility] HEMATOLOGY Platelet 156 133 - 450 04/08/2020 [facility] HEMATOLOGY MPV 7.4 7.4 - 10.4 04/08/2020 [facility] HEMATOLOGY Segs 83.0 45.0 - 75.0 04/08/2020 [facility] HEMATOLOGY Lymphocytes 11.0 20.0 - 40.0 04/08/2020 [facility] HEMATOLOGY Monocytes 5.3 2.0 - 12.0 04/08/2020 [facility] HEMATOLOGY Eosinophils 0.3 0.0 - 4.0 04/08/2020 [facility] HEMATOLOGY Basophils 0.4 0.0 - 1.0 04/08/2020 [facility] HEMATOLOGY Neutrophils # 6.1 1.5 - 8.1 04/08/2020 [facility] [place] HEMAT[facility]Y Lymphocytes # 0.8 1.0 - 5.5 04/08/2020 [facility] [place] HEMATOLOGY Monocytes # 0.4 0.0 - 0.8 04/08/2020 [facility] [place] URINE AND STOOL POC UA Color Yellow *NA* (04/04/20 2:09 PM) Yellow 04/04/2020 [facility] URINE AND STOOL POC UA Turbidity Clear *NA* (04/04/20 2:09 PM) Clear 04/04/2020 [facility] URINE AND STOOL POC UA SG 1.015 <=1.030 04/04/2020 [facility] URINE AND STOOL POC UA pH 6.0 5.0 - 8.0 04/04/2020 [facility] URINE AND STOOL POC UA Prot Negative mg/dL Negative mg/dL 04/04/2020 [facility] URINE AND STOOL POC UA Glu 250 mg/dL Negative mg/dL 04/04/2020 [facility] URINE AND STOOL POC UA Ket Negative mg/dL Negative mg/dL 04/04/2020 [facility] URINE AND STOOL POC UA Bili Negative *NA* (04/04/20 2:09 PM) Negative 04/04/2020 [facility] URINE AND STOOL POC UA Bld Negative *NA* (04/04/20 2:09 PM) Negative 04/04/2020 [facility] URINE AND STOOL POC UA Uro 0.2 0.1 - 1.0 04/04/2020 [facility] URINE AND STOOL POC UA Nit Negative *NA* (04/04/20 2:09 PM) Negative 04/04/2020 [facility] URINE AND STOOL POC UA LeukEst Trace *ABN* (04/04/20 2:09 PM) Negative 04/04/2020 [facility] IMMUNOLOGY Coronavirus (COVID-19) NA A Not Detected (04/04/20 10:15 AM) Not Detected 04/04/2020 [facility] [place] BLOOD BANK RESULTS ABO/Rh O POS 04/03/2020 [facility] [place] BLOOD BANK RESULTS Antibody Scrn Negative (04/03/20 2:17 PM) 04/03/2020 [facility] [place] CHEM PANEL B/C Ratio 41 6 - 25 04/03/2020 [facility] [place] CHEM PANEL Total Protein 6.5 6.4 - 8.4 04/03/2020 [facility] [place] CHEM PANEL Albumin Lvl 3.3 3.5 - 5.0 04/03/2020 [facility] [place] CHEM PANEL Globulin 3.2 2.7 - 4.2 04/03/2020 [facility] [place] CHEM PANEL A/G Ratio 1.0 0.7 - 1.6 04/03/2020 [facility] [place] CHEM PANEL ALT 25 0 - 65 04/03/2020 [facility] [place] CHEM PANEL AST 17 0 - 37 04/03/2020 [facility] [place] CHEM PANEL Alk Phos 105 39 - 136 04/03/2020 [facility] [place] CHEM PANEL Bili Total 0.5 0.2 - 1.3 04/03/2020 [facility] [place] HEMATOLOGY WBC 7.9 3.7 - 10.4 04/03/2020 [facility] [place] HEMATOLOGY RBC 4.91 4.70 - 6.10 04/03/2020 [facility] [place] HEMATOLOGY Hgb 13.5 14.0 - 18.0 04/03/2020 [facility] [place] HEMATOLOGY Hct 42.7 42.0 - 54.0 04/03/2020 [facility] [place] HEMATOLOGY MCV 86.8 80.0 - 94.0 04/03/2020 [facility] [place] HEMATOLOGY MCH 27.4 27.0 - 31.0 04/03/2020 [facility] [place] HEMATOLOGY MCHC 31.6 32.0 - 36.0 04/03/2020 [facility] [place] HEMATOLOGY RDW 19.5 11.5 - 14.5 04/03/2020 [facility] [place] HEMATOLOGY Platelet 184 133 - 450 04/03/2020 [facility] [place] HEMATOLOGY MPV 7.7 7.4 - 10.4 04/03/2020 [facility] [place] HEMATOLOGY R-time 5.0 5.0 - 10.0 04/03/2020 [facility] [place] HEMATOLOGY K-time 1.4 1.0 - 3.0 04/03/2020 [facility] [place] HEMATOLOGY Angle 67.5 53.0 - 72.0 04/03/2020 [facility] [place] HEMATOLOGY Max Amp 65.7 50.0 - 70.0 04/03/2020 [facility] [place] HEMATOLOGY G-value 9.6 4.5 - 11.0 04/03/2020 [facility] [place] HEMATOLOGY Ly30 0.0 0.0 - 7.5 04/03/2020 [facility] [place] HEMATOLOGY Coag Index 1.6 -3.0-3.0 - 3.0 04/03/2020 [facility] [place] HEMATOLOGY TEG Data See N ote (04/03/20 2:17 PM) 04/03/2020 [facility] [place] HEMATOLOGY TEG Interp Throm belastograph results are within reference ranges. These indicate adequate hemostasis. Note that TEG does not show effect of NSAIDs or P2Y12 inhibitors. CPT:70268 04/03/2020 [facility] [place] HEMATOLOGY Neutrophils # 6.6 1.5 - 8.1 04/03/2020 [facility] [place] HEMATOLOGY Lymphocytes # 0.6 1.0 - 5.5 04/03/2020 [facility] [place] HEMATOLOGY Monocytes # 0.5 0.0 - 0.8 04/03/2020 [facility] [place] HEMATOLOGY Eosinophils # 0.1 0.0 - 0.5 04/03/2020 [facility] [place] HEMATOLOGY Segs 83.0 45.0 - 75.0 04/03/2020 [facility] [place] HEMATOLOGY Bands 0.0 0.0 - 11.0 04/03/2020 [facility] [place] HEMATOLOGY Lymphocytes 8.0 20.0 - 40.0 04/03/2020 [facility] [place] HEMATOLOGY Monocytes 6.0 2.0 - 12.0 04/03/2020 [facility] [place] HEMATOLOGY Eosinophils 1.0 0.0 - 4.0 04/03/2020 [facility] [place] HEMATOLOGY Metamyelocytes 1.0 0.0 - 1.0 04/03/2020 [facility] [place] HEMATOLOGY Myelocytes 1.0 <=0.0 % 04/03/2020 [facility] [place] HEMATOLOGY Atypical Lymphs 0.0 <=0.0 % 04/03/2020 [facility] [place] HEMATOLOGY NRBC 1 04/03/2020 [facility] [place] HEMATOLOGY Plt Morph Kay l (04/03/20 2:17 PM) Normal 04/03/2020 [facility] [place] HEMATOLOGY Anisocyte 1+ *ABN* (04/03/20 2:17 PM) None Seen 04/03/2020 [facility] [place] HEMATOLOGY Polychrom Slight 04/03/2020 [facility] [place] IMMUNOLOGY C-REACTIVE PROTEIN 23.6 <=2.9 mg/L 04/03/2020 [facility] [place] SPECIAL CHEMISTRY Hgb A1C 8.1 <=5.6 % 04/03/2020 [facility] [place] HEMATOLOGY PT 13.6 12.0 - 14.7 11/10/2019 [facility] [place] HEMATOLOGY INR 1.04 0.85 - 1.17 11/10/2019 [facility] [place] HEMATOLOGY PTT 25.1 22.9 - 35.8 11/10/2019 [facility] [place] BLOOD BANK RESULTS ABO/Rh O POS 11/10/2019 [facility] [place] BLOOD BANK RESULTS Antibody Scrn Negative (11/10/19 10:59 AM) 11/10/2019 [facility] [place] BLOOD BANK RESULTS RBC product Product available (11/10/19 10:59 AM) 11/10/2019 [facility] [place] CHEM PANEL Glucose Lvl 168 70 - 99 11/10/2019 [facility] [place] CHEM PANEL BUN 49 7 - 22 11/10/2019 [facility] [place] CHEM PANEL Creatinine Lvl 1.51 0.50 - 1.40 11/10/2019 [facility] [place] CHEM PANEL Sodium Lvl 138 135 - 145 11/10/2019 [facility] [place] CHEM PANEL Potassium Lvl 3.4 3.5 - 5.1 11/10/2019 [facility] [place] CHEM PANEL Chloride Lvl 93 95 - 109 11/10/2019 [facility] [place] CHEM PANEL CO2 36 24 - 32 11/10/2019 [facility] [place] CHEM PANEL Calcium Lvl 8.8 8.5 - 10.5 11/10/2019 [facility] [place] CHEM PANEL AGAP 12.4 10.0 - 20.0 11/10/2019 [facility] [place] CHEM PANEL eGFR 45 11/10/2019 Result Comment: The eGFR is calculated using [...] should be multiplied by the estimated BMI. [facility] [place] CHEM PANEL Magnesium Lvl 2.1 1.8 - 2.4 11/10/2019 [facility] [place] HEMATOLOGY Segs 88.7 45.0 - 75.0 11/10/2019 [facility] [place] HEMATOLOGY Lymphocytes 6.8 20.0 - 40.0 11/10/2019 [facility] [place] HEMATOLOGY Monocytes 4.4 2.0 - 12.0 11/10/2019 [facility] [place] HEMATOLOGY Basophils 0.1 0.0 - 1.0 11/10/2019 [facility] [place] HEMATOLOGY Neutrophils # 9.3 1.5 - 8.1 11/10/2019 [facility] [place] HEMATOLOGY Lymphocytes # 0.7 1.0 - 5.5 11/10/2019 [facility] [place] HEMATOLOGY Monocytes # 0.5 0.0 - 0.8 11/10/2019 [facility] [place] HEMATOLOGY WBC 10.5 3.7 - 10.4 11/10/2019 [facility] [place] HEMATOLOGY RBC 4.95 4.70 - 6.10 11/10/2019 [facility] [place] HEMATOLOGY Hgb 12.4 14.0 - 18.0 11/10/2019 [facility] [place] HEMATOLOGY Hct 39.2 42.0 - 54.0 11/10/2019 [facility] [place] HEMATOLOGY MCV 79.2 80.0 - 94.0 11/10/2019 [facility] [place] HEMATOLOGY MCH 25.1 27.0 - 31.0 11/10/2019 [facility] [place] HEMATOLOGY MCHC 31.7 32.0 - 36.0 11/10/2019 [facility] [place] HEMATOLOGY RDW 19.6 11.5 - 14.5 11/10/2019 [facility] [place] HEMATOLOGY Platelet 213 133 - 450 11/10/2019 [facility] [place] HEMATOLOGY MPV 8.1 7.4 - 10.4 11/10/2019 [facility] [place] CHEM PANEL Glucose Lvl 115 70 - 99 10/17/2019 [facility] [place] CHEM PANEL BUN 51 7 - 22 10/17/2019 [facility] [place] CHEM PANEL Creatinine Lvl 1.65 0.50 - 1.40 10/17/2019 [facility] [place] CHEM PANEL Sodium Lvl 140 135 - 145 10/17/2019 [facility] [place] CHEM PANEL Potassium Lvl 3.8 3.5 - 5.1 10/17/2019 [facility] [place] CHEM PANEL Chloride Lvl 99 95 - 109 10/17/2019 [facility] [place] CHEM PANEL CO2 40 24 - 32 10/17/2019 Result Comment: Critical Result(s) called to Shavon Hawkins at 10/16/2019 18:26 by . Read back OK. [facility] [place] CHEM PANEL AGAP 4.8 10.0 - 20.0 10/17/2019 [facility] [place] CHEM PANEL Calcium Lvl 9.1 8.5 - 10.5 10/17/2019 [facility] [place] CHEM PANEL eGFR 40 10/17/2019 Result Comment: The eGFR is calculated using [...] should be multiplied by the estimated BMI. [facility] [place] HEMATOLOGY Neutrophils # 8.4 1.5 - 8.1 10/17/2019 [facility] [place] HEMATOLOGY Lymphocytes # 1.5 1.0 - 5.5 10/17/2019 [facility] [place] HEMATOLOGY Monocytes # 0.7 0.0 - 0.8 10/17/2019 [facility] [place] HEMATOLOGY Segs 78.0 45.0 - 75.0 10/17/2019 [facility] [place] HEMATOLOGY Bands 1.0 0.0 - 11.0 10/17/2019 [facility] [place] HEMATOLOGY Lymphocytes 14.0 20.0 - 40.0 10/17/2019 [facility] [place] HEMATOLOGY Monocytes 7.0 2.0 - 12.0 10/17/2019 [facility] [place] HEMATOLOGY Atypical Lymphs 0.0 <=0.0 % 10/17/2019 [facility] [place] HEMATOLOGY NRBC 1 10/17/2019 [facility] [place] HEMATOLOGY Anisocyte 1+ *ABN* (10/16/19 6:05 PM) None Seen 10/17/2019 [facility] [place] HEMATOLOGY Microcyte 1+ *ABN* (10/16/19 6:05 PM) None Seen 10/17/2019 [facility] [place] HEMATOLOGY Polychrom Moder ate *ABN* (10/16/19 6:05 PM) None Seen 10/17/2019 [facility] [place] HEMATOLOGY Toxic Gran slight 10/17/2019 [facility] [place] HEMATOLOGY Large Plt slight 10/17/2019 [facility] [place] HEMATOLOGY WBC 10.6 3.7 - 10.4 10/17/2019 [facility] [place] HEMATOLOGY RBC 4.67 4.70 - 6.10 10/17/2019 [facility] [place] HEMATOLOGY Hgb 11.5 14.0 - 18.0 10/17/2019 [facility] [place] HEMATOLOGY Hct 36.7 42.0 - 54.0 10/17/2019 [facility] [place] HEMATOLOGY MCV 78.6 80.0 - 94.0 10/17/2019 [facility] [place] HEMATOLOGY MCH 24.5 27.0 - 31.0 10/17/2019 [facility] [place] HEMATOLOGY MCHC 31.2 32.0 - 36.0 10/17/2019 [facility] [place] HEMATOLOGY RDW 18.7 11.5 - 14.5 10/17/2019 [facility] [place] HEMATOLOGY Platelet 191 133 - 450 10/17/2019 [facility] [place] HEMATOLOGY MPV 7.7 7.4 - 10.4 10/17/2019 [facility] [place] HEMATOLOGY PTT 26.9 22.9 - 35.8 10/17/2019 [facility] [place] HEMATOLOGY PT 15.1 12.0 - 14.7 10/17/2019 [facility] [place] HEMATOLOGY INR 1.18 0.85 - 1.17 10/17/2019 [facility] [place] URINE AND STOOL POC UA Bld Trace *NA* (05/18/19 12:35 PM) Negative 05/18/2019 [facility] URINE AND STOOL POC UA Bili Negative *NA* (05/18/19 12:35 PM) Negative 05/18/2019 [facility] URINE AND STOOL POC UA Ket Negative mg/dL Negative mg/dL 05/18/2019 [facility] URINE AND STOOL POC UA Uro 0.2 0.1 - 1.0 05/18/2019 [facility] URINE AND STOOL POC UA Nit Positive *ABN* (05/18/19 12:35 PM) Negative 05/18/2019 [facility] URINE AND STOOL POC UA LeukEst Small *ABN* (05/18/19 12:35 PM) Negative 05/18/2019 [facility] URINE AND STOOL POC UA Color Yellow *NA* (05/18/19 12:35 PM) Yellow 05/18/2019 [facility] URINE AND STOOL POC UA Turbidity Clear *NA* (05/18/19 12:35 PM) Clear 05/18/2019 [facility] URINE AND STOOL POC UA SG 1.015 <=1.030 05/18/2019 [facility] URINE AND STOOL POC UA Glu Negative mg/dL Negative mg/dL 05/18/2019 [facility] URINE AND STOOL POC UA pH 6.5 5.0 - 8.0 05/18/2019 [facility] URINE AND STOOL POC UA Prot Negative mg/dL Negative mg/dL 05/18/2019 [facility] CHEM PANEL eGFR 55 06/24/2016 Result Comment: [...] should be multiplied by the estimated BMI. [facility] CHEM PANEL POC Creatinine 1.3 0.5 - 1.4 06/24/2016 [facility] CHEM PANEL eGFR 55 04/10/2016 Result [...] should be multiplied by the estimated BMI. [facility] CHEM PANEL POC Creatinine 1.3 0.5 - 1.4 04/10/2016 [facility] Pathology Reports No Data Provided for This Section Diagnostic Reports Report Value Date Source Elbow wo contrast MRI PROCEDUR E INFORMATION: Exam: MR Left Upper Extremity Joint Without Contrast; Elbow Exam date and time: 04/16/2020 5:10 PM Age: 74 years old Clinical indication: Condition or disease; Other: Wound exposing left olecranon process. ; Additional info: /wound with exposed olacrenon process for several months. Recent closure by plasctics. R/O osteomyelitis. TECHNIQUE: Imaging protocol: MR of the Left upper extremity without contrast. Exam focused on the elbow. COMPARISON: No relevant prior studies available. FINDINGS: Limitations: The study is limited due to motion. Bones and cartilage: Shallow ulceration in the posterior aspect of the elbow overlying the olecranon. Small foci of subcutaneous air appear to be present. Minimal edema within the medial/ulnar aspect of the olecranon, for example seen on series 4, image 19 and series 6, image 16. No confluent area of T1 hypointensity. No acute fracture or dislocation. Mild degenerative change. Joint spaces: Trace amount of fluid in the joint space which may be physiologic. Ulnar (medial) collateral ligament: Intact. No tear. Radial collateral ligament of the elbow: Intact. No tear. Annular ligament of the radius: Intact. No tear. Tendon of the biceps brachii: Intact. No tear. Tendon of the Brachialis: Intact. No tear. Triceps tendon: Intact. No tear. Common flexor tendon: Intact. No tear. Common extensor tendon: Moderate grade partial tear of the common extensor tendon origin with mild tendinopathy. There is mild retraction measuring 5 mm seen on coronal image 10. Muscles: No muscle edema or tear. Soft tissues: See 'Bones and cartilage' finding. IMPRESSION: 1. Ulceration in the posterior aspect of the elbow. Small foci of subcutaneous air. Superficial soft tissue edema without focal fluid collection or abscess. Mild bone marrow edema in the medial/ulnar aspect of the olecranon without confluent area of T1 hypointensity, thought to relate to reactive osteitis. Very early osteomyelitis cannot be excluded. 2. Moderate grade partial tear of the co mmon extensor tendon origin with mild tendinopathy and retraction. COMMENTS: ?Treatment of suspected osteomyelitis is heavily determined by clinical factors. Patients who initially demonstrate only T2 marrow signal abnormality under a diabetic ulcer are eventually diagnosed with osteomyelitis in 61% of cases and deserve aggressive treatment as early osteomyelitis when meeting clinical parameters.? Outcomes in diabetic foot ulcer patients with isolated T2 marrow signal abnormality in the underlying bone: Should the diagnosis of ?osteitis? be changed to ?early osteomyelitis?? Nadira Garrison, et al. Skeletal Radiol. 2017 Jeremi Combs MD On 04/17/2020 09:38:05; [id number] 04/16/2020 [facility] Spine Thoracic wo contrast MRI Findings of prominent epidural fat from T4-T9 with mild compression of the thoracic spinal cord from T4-T8 discussed with Dr. Salmon via telephone on 04/16/2020 at 12:10 a.m. central time. Momo Bangura MD On 04/16/2020 00:12:09; [id number] PROCEDURE INFORMATION: Exam: MR Thoracic Spine Without Contrast Exam date and time: 04/15/2020 8:35 PM Age: 74 years old Clinical indication: Pain in thoracic spine; bilateral lower extremity weakness. TECHNIQUE: Imaging protocol: Multiplanar magnetic resonance images of the thoracic spine without intravenous contrast. COMPARISON: SPINE THORACIC WO CONTRAST MRI 02/02/2020 4:06 PM FINDINGS: Vertebrae: Partial bony fusion of the T6, T7 and T8 vertebral bodies. Thoracic vertebral body heights and alignment maintained. No evidence of acute fracture. Spinal cord: No abnormal signal within the thoracic spinal cord. T1-T2: Disc desiccation. No significant disc herniation. No significant spinal canal or neural foraminal stenosis. T2-T3: Disc desiccation. No significant disc herniation. No significant spinal canal or neural foraminal stenosis. T3-T4: Disc desiccation. No significant disc herniation. No significant spinal canal or neural foraminal stenosis. T4-T5: Disc desiccation. Prominence of the epidural fat, which results in moderate spinal canal stenosis. Mild compression of the thoracic spinal cord. No significant neural foraminal stenosis. T5-T6: Prominence of the epidural fat, which results in moderate spinal canal stenosis. Mild compression of the thoracic spinal cord. No significant neural foraminal stenosis. T6-T7: Prominence of the epidural fat, which results in moderate spinal canal stenosis. Mild compression of the thoracic spinal cord. No significant neural foraminal stenosis. T7-T8: Prominence of the epidural fat, which results in moderate spinal canal stenosis. Mild compression of the thoracic spinal cord. No significant neural foraminal stenosis. T8-T9: Prominence of the epidural fat, which results in mild spinal canal stenosis. No significant neural foraminal stenosis. T9-T10: Disc desiccation. No significant disc herniation. No significant spinal canal or neural foraminal stenosis. T10-T11: Disc desiccation. A small right paracentral disc extrusion along the posterior aspect of T11. Mild spinal canal stenosis. No significant neural foraminal stenosis. T11-T12: Disc desiccation. No significant disc herniation. No significant spinal canal or neural foraminal stenosis. Pleural space: Small bilateral pleural effusions. Kidneys and ureters: Simple cysts within the visualized left kidney measuring up to 3.5 cm. Soft tissues: Unremarkable. IMPRESSION: 1. Prominence of the epidural fat extend ing from the T4 to T9, which may represent epidural lipomatosis. 2. Moderate narrowing of the spinal kd l from T4-T8. Mild spinal canal narrowing at T8-T9. 3. Mild compression of the thoracic spin al cord from T4-T8. No definite cord edema. 4. A right paraspinal disc extrusion at T10-T11 with mild spinal canal stenosis. Momo Bangura MD On 04/16/2020 00:02:15; [id number] 04/15/2020 [facility] Spine lumbar wo contrast MRI P ROCEDURE INFORMATION: Exam: MR Lumbar Spine Without Contrast. Exam date and time: 04/15/2020 8:35 PM Age: 74 years old Clinical indication: Low back pain; Additional info: /ble weakness, urinary retention, R/O lonny TECHNIQUE: Imaging protocol: Multiplanar magnetic resonance images of the lumbar spine without intravenous contrast. COMPARISON: SPINE LUMBAR WO CONTRAST MRI 02/02/2020 4:06 PM FINDINGS: Vertebrae: There is lumbar lordosis. The vertebral body heights and alignment are maintained. The bone marrow signal is unremarkable. Spinal cord: The conus terminates at T12-L1. The distal cord is normal in size and signal characteristics. L1-L2: No significant disc disease. No significant spinal canal stenosis. No neural foraminal stenosis. Bilateral facet joint arthropathy. L2-L3: No significant disc disease. No significant spinal canal stenosis. No neural foraminal stenosis. Bilateral facet joint arthropathy. L3-L4: Mild disc bulge with bilateral facet joint arthropathy and ligamentum flavum hypertrophy causing mild spinal canal stenosis without significant neural foraminal narrowing. L4-L5: There is a diffuse disc bulge with bilateral facet joint arthropathy and ligamentum flavum hypertrophy causing mild spinal canal stenosis and mild bilateral neural foraminal narrowing. L5-S1: Mild disc bulge with bilateral facet joint arthropathy without significant spinal canal stenosis or foraminal narrowing. Epidural lipomatosis is noted causing narrowing of the thecal sac. Soft tissues: Atrophic changes in the right psoas muscle. Multiple bilateral renal cysts. IMPRESSION: No fracture or subluxation. Mild degenerative changes without significant change. Epidural lipomatosis causing narrowing of the thecal sac at L5-S1. Skylar Rodas MD On 04/15/2020 23:48:44; [id number] 04/15/2020 [facility] Abdomen AP DX PROCEDURE INFORM ATION: Exam: XR Abdomen, 1 View Exam date and time: 04/14/2020 3:35 PM Age: 74 years old Clinical indication: Screening exam; Additional info: /for mri clearance TECHNIQUE: Imaging protocol: XR of the abdomen. Views: Frontal supine view of the abdomen. 1 View. COMPARISON: RETROPERITONEAL COMPLETE US 04/13/2020 4:12 PM FINDINGS: Gastrointestinal tract: There is a non-obstructive bowel gas pattern. There is no abnormal dilatation of bowel loops. There is no pneumatosis or mass effect. Bones/joints: Unremarkable. Soft tissues: No abnormal radiopaque densities. Stimulator device projects over the right ilium. IMPRESSION: No acute findings. Stimulator device projecting over the right ilium in the pelvis. Garry Lira MD On 04/14/2020 16:07:32; [id number] 04/14/2020 [facility] Retroperitoneal Complete US [place] OCEDURE INFORMATION: Exam: US Retroperitoneal; Complete; Kidneys and Bladder Exam date and time: 04/13/2020 4:12 PM Age: 74 years old Clinical indication: Condition or disease; Kidney or ureter condition; Acute renal insufficiency; Additional info: /akshat on ckd TECHNIQUE: Imaging protocol: Real-time ultrasound of the retroperitoneum with image documentation. Complete exam focused on the kidneys and bladder. COMPARISON: No relevant prior studies available. FINDINGS: Right kidney: Measures 11.2 cm in maximal dimension. No stones. No hydronephrosis. Left kidney: Measures 12.1 cm in maximal dimension. No stones. No hydronephrosis. A partially exophytic left renal midpole simple cyst is noted, measuring up to 3.3 cm in maximal dimension. Bladder: Unremarkable. Moderately distended with anechoic urine. IMPRESSION: Unremarkable kidneys and bladder for acute pathology. A 3.3 cm partially exophytic left renal midpole cyst, requiring no follow-up imaging. Jose Rojo DO On 04/13/2020 17:11:56; [id number] 04/13/2020 [facility] 1view DX PROCEDURE INFOR MATION: Exam: XR Chest, 1 View Exam date and time: 04/13/2020 10:09 AM Age: 74 years old Clinical indication: Shortness of breath; Additional info: /undifferentiated sepsis. PT to er from home due to complaint of SOB, numbness to bilateral lower extremities, and numbness to right arm starting 'quite awhile ago' per patient. PT on bipap upon EMS arrival with difficulties breathing. PT released yesterday for left elbow SX TECHNIQUE: Imaging protocol: XR of the chest Views: 1 view. COMPARISON: CR CHEST 1V FOR PLACEMENT DX 04/11/2020 11:51 AM FINDINGS: Tubes, catheters and devices: Right upper extremity PICC noted terminating in the distal SVC. Lungs: Band of subsegmental atelectasis/scarring again noted in the left lower lung. No consolidation. Pleural space: No pleural effusion. No pneumothorax. Heart/Mediastinum: Heart size is enlarged. Bones/joints: No acute osseous abnormality. Old healed left rib fractures. Partially visualized cervical spinal hardware. IMPRESSION: 1. Subsegmental atelectasis/scarring in the left lower lung. Alia Steward MD On 04/13/2020 10:40:11; [id number] 04/13/2020 [facility] 1 v for Placement DX EXA M: XR CHEST 1 VIEW DATE: 04/11/2020 11:15 CDT INDICATION: Line Placement - Chest 1 view for line placement COMPARISON: Chest x-ray dated April 03, 2020. TECHNIQUE: AP chest. FINDINGS: Lines, tubes and hardware: Right-sided PICC line tip extending to the distal superior vena cava. Lungs and pleura: Subsegmental atelectasis is seen in the left lower lung zone. No parenchymal consolidation or pleural effusion. No pneumothorax. Heart and mediastinum: The cardiomediastinal silhouette is unchanged. Watchman device is in place. Bones, soft tissues: Remote rib fracture deformations are seen in the left hemithorax. Degenerative changes are seen in the thoracic spine. IMPRESSION: Watchman device is in place. Subsegmental atelectasis in the left lower lung zone. No acute cardiopulmonary abnormality. Remote rib fracture deformities in the left hemithorax. 04/11/2020 [facility] Chest 2 views DX EXAM: XR CHES T 2 VIEWS DATE: 04/03/2020 14:59 CDT INDICATION: Pre-OP - Pre-OP COMPARISON: None. TECHNIQUE: PA and lateral chest radiographs. FINDINGS: Lines, tubes and hardware: Watchman device project over the cardiac silhouette. Lungs and pleura: No pleural effusions or pneumothorax. Mild bibasilar subsegmental atelectasis. Upper lungs are clear. Heart and mediastinum: The cardiomediastinal silhouette is is stable in size. Bones: Accentuation of thoracic kyphosis mild loss of height of multiple thoracic vertebral bodies. Degenerative changes in the thoracic spine including anterior osteophytes. Left-sided chronic rib deformities are seen. IMPRESSION: 1. No acute cardiopulmonary abnormality . Watchman device in place. 2. Mild bibasilar subsegmental atelecta sis. 04/03/2020 [facility] Spine Thoracic wo contrast MRI PROCEDURE INFORMATION: Exam: MR Thoracic Spine Without Contrast Exam date and time: 02/02/2020 4:06 PM Age: 74 years old Clinical indication: Radiculopathy, thoracic region; Additional info: /m54.14 TECHNIQUE: Imaging protocol: Multiplanar magnetic resonance images of the thoracic spine without intravenous contrast. COMPARISON: MRI lumbar spine 02/02/2020. MRI thoracic spine 06/24/2016 FINDINGS: Vertebrae: Marked kyphosis of the thoracic spine is redemonstrated and not significantly changed. No acute compression fractures significant change from the prior Spinal epidural space: Extensive epidural lipomatosis is present throughout the thoracic spine and spans the T2-T10 levels. Spinal cord: The thoracic spinal cord demonstrates normal signal. No thoracic syrinx or cord signal abnormality delineated. T1-T12: There is unchanged severe compression of the thecal sac from the epidural lipomatosis pain at T1-2 through the T9-T10 levels. No significant disc bulge or protrusion. The unchanged intradural extramedullary lesion within the right aspect of the spinal canal at the T11 level. This measures 6.3 mm. This could reflect a meningioma or nerve sheath tumor. Lack of IV contrast limits evaluation. Consider follow-up imaging with contrast. This appears unchanged in size from 2016. Soft tissues: Unremarkable. Other findings: Lack of IV contrast does limit evaluation. IMPRESSION: 1. Marked kyphosis of the thoracic spine . No interval change from the prior study. No acute compression fracture. 2. Unchanged intradural extramedullary l esion within the right aspect of the spinal canal at the T11 level. This could reflect a meningioma or nerve sheath tumor. Other etiologies are possible. Lack of IV contrast limits evaluation. Consider follow-up imaging with contrast. 3. Extensive epidural lipomatosis within the thoracic spine spanning T2-T10, unchanged. There is severe compression of the thecal sac at these levels without interval change from the prior exam. Nate Baig MD On 02/03/2020 10:12:14; [id number] 02/02/2020 [facility] Spine lumbar wo contrast MRI P ROCEDURE INFORMATION: Exam: MR Lumbar Spine Without Contrast. Exam date and time: 02/02/2020 4:06 PM Age: 74 years old Clinical indication: Lumbago with sciatica and weakness; Additional info: /m54.14 TECHNIQUE: Imaging protocol: Multiplanar magnetic resonance images of the lumbar spine without intravenous contrast. COMPARISON: MRI lumbar spine 12/04/2017 FINDINGS: Vertebrae: The alignment is within normal limits. The vertebral bodies are maintained. Spinal cord: The conus terminates at L1. L1-L2: No significant disc bulge or protrusion at L1-L2. No spinal canal stenosis or foraminal narrowing. L2-L3: No significant disc bulge or protrusion at L2-L3. No spinal canal stenosis or foraminal narrowing at L2-L3. L3-L4: Moderate facet degenerative changes at L3-L4 worse on the left. Shallow posterior disc bulge with endplate spurring at L3-L4. No spinal canal stenosis or foraminal narrowing at L3-L4. L4-L5: Shallow posterior disc bulge with endplate spurring at L4-L5. Mild bilateral foraminal narrowing at L4-L5. Moderate facet degenerative changes at L4-L5. Mild spinal canal stenosis at L4-L5. L5-S1: Shallow posterior disc bulge at L5-S1. Epidural lipomatosis compresses the thecal sac at L5-S1. Mild bilateral foraminal narrowing at L5-S1. No spinal canal stenosis at L5-S1. Moderate facet degenerative changes at L5-S1. Other bones/joints: Bone marrow signal changes are normal for age. Kidneys and ureters: Multiple T2 hyperintense cystic lesions within both kidneys are incompletely visualized but likely reflect small renal cysts. Soft tissues: The paraspinous soft tissues appear unremarkable. IMPRESSION: 1. Mild spinal canal stenosis and mild b ilateral foraminal narrowing at L4-L5, unchanged. 2. Mild bilateral foraminal narrowing at L5-S1, unchanged. 3. No significant change from the prior study. Nate Baig MD On 02/03/2020 09:39:50; [id number] 02/02/2020 [facility] Bone Density DXA [employer] MA MALE BONE DENSITY ASSESSMENT: 07/23/2019 CLINICAL DATA: Clinical risk for osteoporosis. 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 FINDINGS: Bone density evaluation was performed 07/23/2019 on the right femur neck using a Hologic unit. The BMD average for the exam is 0.761 g/cm2. The T-score is - 1.20 and the Z-score is 0.10. This matches the World Health Organization's criteria for osteopenia and places the patient at a medium risk for fracture. An additional bone density evaluation was performed 07/23/2019 on the left femur neck using a Hologic unit. The BMD average for the exam is 0.806 g/cm2. The T- score is -0.90 and the Z-score is 0.40. This matches the World Health Organization's criteria for normal bone density and places the patient within normal limits of fracture risk. An additional bone density evaluation was performed 07/23/2019 on the right hip using a Hologic unit. The BMD average for the exam is 1.012 g/cm2. The T-score is -0.10 and the Z-score is 0.70. This matches the World Health Organization's criteria for normal bone density and places the patient within normal limits of fracture risk. An additional bone density evaluation was performed 07/23/2019 on the left hip using a Hologic unit. The BMD average for the exam is 0.974 g/cm2. The T-score is -0.40 and the Z-score is 0.40. This matches the World Health Organization's criteria for normal bone density and places the patient within normal limits of fracture risk. An additional bone density evaluation was performed 07/23/2019 on the AP L2-L4 region of spine using a Hologic unit. The BMD average for the exam is 1.535 g/cm2. The T-score is 3.80 and the Z-score is 4.90. This matches the World Health Organization's criteria for normal bone density and places the patient within normal limits of fracture risk. Degenerative changes of the spine likely falsely elevate calculated spinal bone density. FRAX 10 year probability of major osteoporotic fracture is 5.5% and hip fracture is 1.2%. IMPRESSION: OSTEOPENIA Patient is at medium risk for fracture. Patient consult w/primary care provider is recommended. This exam was interpreted at [id number] for JOVI Pyle, 15. 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 Total exam DLP = 2622 mGy-cm. Impression: 1. 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 Comparison: None TECHNIQUE: Multiplanar, multisequence magnetic resonance imaging of the lumbar spine was performed without the administration of intravenous gadolinium contrast. FINDINGS: 5 nonrib-bearing lumbar vertebra are pre sent. No acute compression fracture or subluxation is [...] IMPRESSION: 1. Degenerative changes of the lower lum bar spine with mild spinal canal stenosis and mild bilateral neural foraminal narrowing at L4-L5. SL: [id number] 12/04/2017 [facility] Spine cervical wo contrast MRI Study: [...] seen. IMPRESSION: 1. Stable postoperative changes of multi level ACDF of C3-C5. 2. Multilevel degenerative changes of th e cervical spine with mild to moderate spinal canal stenosis and mild left neural foraminal narrowing at C3-C4. 3. C4-C5 mild spinal canal stenosis with severe left neural foraminal narrowing. 4. C5-C6 severe right and mild left neur al foraminal narrowing. 5. C6-C7 mild left neural foraminal narr owing. 6. C7-T1 moderate-severe bilateral neura l foraminal narrowing, left greater than right. SL: [id number] 12/04/2017 [facility] w pelvis and [...] 04/23/2017 MEHNAZ Pyle Sacroiliac joints series DX EX AMINATION: Sacroiliac joint series HISTORY: M54.5 Low back [...] joints. 2. Degenerative changes of the lower lum bar spine partially visualized. 04/23/2017 MEHNA[facility] Pyle Spine [...] unremarkable. IMPRESSION: 1. Stable appearance of multilevel epidu ral lipomatosis of the mid to lower thoracic spine with associated severe thecal sac effacement and flattening of the thoracic spinal cord from T5 through T9. No thoracic spinal cord edema is seen. 2. Stable enhancing 6 x 6 x 11 mm intrad ural/extramedullary lesion along the right anterior thoracic spinal cord at the level of T11. This may represent a meningioma, nerve sheath tumor, or epidermoid cyst. SL: [id number] 06/24/2016 [facility] Spine lumbar w/wo contrast MRI Patient Name: STEVE BENEDICT : 1945; Age: 70 years y/o Male MR: [id number] Study: Spine lumbar w/wo contrast MRI 06/24/2016 9:25 AM CDT Ordering Physician: Neil Daniel MD Clinical Indication: THORACIC MYELOPAHTY, LUMBAR [...] narrowing. IMPRESSION: 1. Multilevel degenerative changes of th e lumbar spine with mild spinal canal stenosis and mild right neural foraminal narrowing at L4-L5. 2. Atrophy with mild enhancement of the right paraspinous muscular structure in the lower lumbar spine, compatible with acute on chronic denervation. SL: [id number] 06/24/2016 [facility] Spine thoracic wo contrast CT CT [...] IMPRESSION: 1. No significant interval change in tho racolumbar spondylosis, described in the recent MR studies. 2. No acute abnormalities are visualized . SL:06/19/2016 [facility] lumbar wo contrast CT CT THORACIC [...] IMPRESSION: 1. No significant interval change in tho racolumbar spondylosis, described in the recent MR studies. 2. No acute abnormalities are visualized . SL:06/19/2016 [facility] cervical 2 or 3 view DX EXAM: [...] 2. No acute fracture or malalignment. 04/23/2016 [facility] Spine Thoracic w/wo contrast MRI MRI THORACIC [...] sac. IMPRESSION: 1. Epidural lipomatosis results in sever e stenosis of the thecal sac, greatest from T5-T6 through T8-T9. There is complete effacement of the subarachnoid space and mild flattening of the cord. The cord is normal in signal. Epidural lipomatosis and resultant thecal sac stenosis and cord flattening have progressed since 2007. 2. Thoracic spondylosis does not contrib demetrio to spinal canal stenosis. The foramina are patent. 3. Stable chronic anterior wedge polly robyn deformities of multiple mid thoracic vertebral bodies, associated with exaggerated thoracic kyphotic curvature. No acute compression fractures are identified. 4. The tip of the pain pump lead or cath eter is seen at the T10-T11 level. 5. Mild left pleural effusion and multip le bilateral renal cysts. SL:16 04/10/2016 [facility] Spine lumbar w/wo contrast MRI EXAM: [...] stenoses. 4. Generalized low marrow signal is nons pecific, can be seen with smoking and anemia among other etiologies. SL: [id number] 03/28/2016 [facility] Consultation Notes No Data Provided for This Section Discharge Summaries No Data Provided for This Section History and Physicals No Data Provided for This Section Vital Signs Vital Sign Value Date Comments Source Temperature Oral (F) 98 F 04/20/2020 [facility] Heart Rate 93 04/20/2020 [facility] Respitory Rate 18 04/20/2020 [facility] Systolic (mm Hg) 120 04/20/2020 [facility] Diastolic (mm Hg) 79 04/20/2020 [facility] Temperature Oral (F) 97.9 F 04/20/2020 [facility] Heart Rate 96 04/20/2020 [facility] Systolic (mm Hg) 135 04/20/2020 [facility] Diastolic (mm Hg) 90 04/20/2020 [facility] Respitory Rate 18 04/20/2020 [facility] Temperature Oral (F) 98.0 F 04/20/2020 [facility] Heart Rate 80 04/20/2020 [facility] Systolic (mm Hg) 135 04/20/2020 [facility] Diastolic (mm Hg) 89 04/20/2020 [facility] Respitory Rate 18 04/20/2020 [facility] Height 175.26 cm 04/14/2020 [facility] Weight 107.004 04/14/2020 [facility] BMI Calculated 34.84 04/14/2020 [facility] Height 175.26 cm 04/13/2020 [facility] BMI Calculated 32.26 04/13/2020 [facility] Weight 99.091 04/13/2020 [facility] Temperature Oral (F) 97.9 F 04/13/2020 [facility] Heart Rate 64 04/13/2020 [facility] Respitory Rate 16 04/13/2020 [facility] Systolic (mm Hg) 105 04/13/2020 [facility] Diastolic (mm Hg) 60 04/13/2020 [facility] Systolic (mm Hg) 97 04/12/2020 [facility] Diastolic (mm Hg) 63 04/12/2020 [facility] Temperature Oral (F) 97.0 F 04/12/2020 [facility] Heart Rate 68 04/12/2020 [facility] Respitory Rate 20 04/12/2020 [facility] Systolic (mm Hg) 95 04/12/2020 [facility] Diastolic (mm Hg) 53 04/12/2020 [facility] Temperature Oral (F) 98.1 F 04/12/2020 [facility] Heart Rate 89 04/12/2020 [facility] Respitory Rate 20 04/12/2020 [facility] Height 175.26 cm 04/07/2020 [facility] Weight 99.091 04/07/2020 [facility] BMI Calculated 32.26 04/07/2020 [facility] Height 175.26 cm 04/07/2020 [facility] Weight 99.2 04/07/2020 [facility] Height 175.26 cm 04/07/2020 [facility] Weight 99.2 04/07/2020 [facility] BMI Calculated 32.3 04/07/2020 [facility] Height 175.26 cm 04/04/2020 [facility] Weight 98.324 04/04/2020 [facility] BMI Calculated 32.01 04/04/2020 [facility] BMI Calculated 31.97 04/03/2020 [facility] Respitory Rate 15 11/11/2019 [facility] Systolic (mm Hg) 110 11/11/2019 [facility] Diastolic (mm Hg) 70 11/11/2019 [facility] Respitory Rate 19 11/11/2019 [facility] Systolic (mm Hg) 146 11/11/2019 [facility] Diastolic (mm Hg) 86 11/11/2019 [facility] Respitory Rate 23 11/11/2019 [facility] Systolic (mm Hg) 113 11/11/2019 [facility] Diastolic (mm Hg) 68 11/11/2019 [facility] Temperature Oral (F) 97.6 F 11/10/2019 [facility] Height 175.26 cm 11/10/2019 [facility] Weight 94.091 11/10/2019 [facility] BMI Calculated 30.63 11/10/2019 [facility] Respitory Rate 18 10/17/2019 [facility] Systolic (mm Hg) 135 10/17/2019 [facility] Diastolic (mm Hg) 72 10/17/2019 [facility] Systolic (mm Hg) 129 10/17/2019 [facility] Diastolic (mm Hg) 75 10/17/2019 [facility] Respitory Rate 18 10/17/2019 [facility] Temperature Oral (F) 98.4 F 10/17/2019 [facility] Systolic (mm Hg) 150 10/17/2019 [facility] Diastolic (mm Hg) 89 10/17/2019 [facility] Respitory Rate 18 10/17/2019 [facility] Temperature Oral (F) 98.0 F 10/17/2019 [facility] Heart Rate 95 10/16/2019 [facility] Temperature Oral (F) 98.4 F 10/16/2019 [facility] Height 175.26 cm 06/02/2019 [facility] Weight 106.08 06/02/2019 [facility] BMI Calculated 34.54 06/02/2019 [facility] BMI Calculated 34.5 04/19/2019 [facility] Height 175.26 cm 04/19/2019 [facility] Weight 105.966 04/19/2019 [facility] Height 175.26 cm 11/30/2018 [facility] Weight 108.722 11/30/2018 [facility] BMI Calculated 35.4 11/30/2018 [facility] Encounters Location Location Details Encounter Type Encounter Number Reason For Visit Attending Provider ADM Date DC Date Status Source [facility] [place] [facility] [id number] Monique Reed 03/06/2016 03/07/2016 [facility] Outpatient [id number] Christopher Summers 03/28/2016 03/29/2016 [facility] Out[facility] [place] Out[facility] Diag Services [id number] Angel Martínez 04/02/2016 04/03/2016 [facility] Outpatient [id number] Elida Valenzuela 04/10/2016 04/11/2016 [facility] [place] [facility] [id number] Monique Reed 04/23/2016 04/24/2016 [facility] Outpatient [id number] NEIL DANIEL 06/06/2016 [facility] Outpatient [id number] Neil Daniel Jr 06/19/2016 06/20/2016 [facility] Outpatient [id number] Neil Daniel Jr 06/24/2016 06/25/2016 [facility] Outpatient [id number] NEIL DANIEL 07/11/2016 Active [facility] Outpatient Imaging - [place] Outpt Diag Services [id number] Mila Jones 04/23/2017 04/24/2017 [facility] [place] [facility] Outpatient [id number] Oleksandr Uriarteanali 12/05/2017 12/05/2017 [facility] Urology [facility] [place] Phone Message [id number] 11/04/1911/06/2018 [facility] Outpatient [id number] CARLA REYNAGA 11/30/2018 [facility] [id number] Carla Reynaga 11/30/2018 12/01/2018 [facility] Outpatient [id number] URODYNAMICS 12/16/2018 Active [facility] Outpatient [id number] CARLA REYNAGA 12/22/2018 Active [facility] Outpatient Imaging - [place] Outpt Diag Services [id number] Mila Jones 12/28/2018 12/29/2018 [facility] [place] Outpatient [id number] Carla Reynaga 02/02/2019 Active [facility] Outpatient [id number] Carla Reynaga 04/19/[address] [facility] Outpatient [id number] Carla Reynaga 04/19/2019 04/20/2019 [facility] Outpatient [id number] NURSE VISIT 04/21/[address] [facility] Ambulatory Pre-Reg [id number] Christopher Summers 04/21/2019 04/21/2019 [facility] Outpatient [id number] Carla Reynaga 05/04/2019 [facility] [id number] Christopher Summers 05/04/2019 05/04/2019 [facility] Urology [facility] Ambulatory Pre-Reg [id number] Carla Reynaga 05/04/2019 05/04/2019 [facility] Outpatient [id number] - URODYNAMICS, 05/18/2019 Active [facility] Urology [facility] Outpatient [id number] Christopher Kristopher 05/18/2019 05/19/2019 [facility] [place] [facility] Pre-Reg [id number] Carla Reynaga 05/25/2019 05/25/2019 [facility] Outpatient [id number] MED_ASST VISIT 05/27/2019 Active [facility] [place] Outpatient [id number] Christopher Summers 05/27/2019 05/28/2019 [facility] Outpatient [id number] - URODYNAMICS, 06/01/2019 Active [facility] [place] Outpatient [id number] Christopher Summers 06/01/2019 06/02/2019 [facility] Outpatient [id number] Carla Reynaga 06/02/2019 Active [facility] [place] Outpatient [id number] Carla Reynaga 06/02/2019 06/03/2019 [facility] Outpatient [id number] - URODYNAMICS, 06/08/2019 Active [facility] Outpatient [id number] Carla Reynaga 06/14/2019 Active [facility] [place] [facility] Diag Services [id number] Mila Jones 07/23/2019 07/24/2019 [facility] Emergency [id number] Lucas Kennedycarrie 10/16/2019 10/17/2019 [facility] Inpatient [id number] Sheila Vásquez 11/10/2019 11/11/2019 [facility] Outpatient [id number] Morales Tolbert 02/02/2020 02/03/2020 [facility] Outpatient [id number] Carla Reynaga 02/03/2020 Active [facility] Outpatient [id number] Carla Reynaga 03/13/2020 Active [facility] Ambulatory Pre-Reg [id number] Carla Reynaga 03/13/2020 03/13/2020 [facility] Outpatient [id number] Carla Reynaga 04/04/2020 [facility] [place] Outpatient [id number] Carla Toñito 04/04/2020 04/05/2020 [facility] Inpatient [id number] Morales Tolbert 04/07/2020 04/13/2020 [facility] Inpatient [id number] Abdulaziz Tobin 04/13/2020 04/20/2020 [facility] Outpatient [id number] [facility] 07/04/2020 Active [facility] Procedures Procedure Code Date Perfomer Comments Source Measurement of post-voiding residual uri ne and/or bladder capacity by ultrasound, non-imaging 48607 04/04/2020 [facility] Complex cystometrogram (ie, calibrated e lectronic equipment); with voiding pressure studies (ie, bladder voiding pressure), any technique 76888 06/02/2019 [facility] Voiding pressure studies, intra-abdomina l (ie, rectal, gastric, intraperitoneal) (List separately in addition to code for primary procedure) 92635 06/02/2019 [facility] Complex uroflowmetry (eg, calibrated cecilia ctronic equipment) 01987 06/02/2019 [facility] Electromyography studies (EMG) of anal o r urethral sphincter, other than needle, any technique 16634 06/02/2019 [facility] Cystoscopy [id number] 08/25/2018 [facility] Complex uroflowmetry [id number] 03/30/2018 [facility] [place],[facility] Catheter replacement [id number] [facility] [place],[facility] Fusion<sup>1</sup> [id number] cervical fusion done on 09/11/[address] Nilo Adames [facility] [place] Prostate manipulation [id number] [facility] [place] Stent replacement [id number] [facility] [place] Ablation [id number] [facility] Cataract surgery [id number] [facility] Colonoscopy [id number] [facility] Operation [id number] [facility] PCI - Percutaneous coronary intervention [id number] [facility] ,[facility] Assessment and Plan Assessment and Plan Date Source Extracted from:Title: Clinical Document Author: Alona Perez Date: 04/20/20 PAIN MANAGEMENT PROGRESS NOTE SUBJECTIVE: Patient notes that current pain is stable Continued left elbow pain He also notes chronic back pain Current pain: 3/10 Seen ambulating around the room with no [...] adjustments at this time. He may continue Hollywood 5/325mg q6h as needed. He is pending thoracic laminectomy once left elbow infection is cleared. We will continue to monitor pulmonary status. We will continue to follow and make adjustments as needed. We have provided a discharge prescription to the patient's pharmacy for Hollywood 5/325mg #10. Please call with any questions or concerns. Attending: Fransisca Ferreira MD Service: Internal Medicine Code status: None Specified=FULL CODE Reason for Admission: ACUTE RESP FAILURE Working DRG: Isolation: No Isolation/Standard Precautions Consulting Physicians: Jey Yanes MD Office: Service: Infectious Disease, Medicine Sadi Jose MD Office: Service: Nephrology Arsalan España MD Office: Service: Medicine Horace Mcguire MD Office: Service: Cardiology Ross Bynum MD Office: Service: Physical Medicine/Rehabilitation Ivan Carlisle MD Office: Service: Medicine, Neurology Emelyn Rico MD Office: Service: Medicine, Neurology Robert Mendez MD Office: Service: Nephrology Santosh Connors MD Office: Service: Anesthesiology Garrick Bangura MD Office: Service: Cardiology Temo Woodard MD Office: Service: Pulmonary, Medicine None Specified=FULL CODE Allergies: Lyrica Vitals Tmp(F) Pulse BP RR SpO2 FIO2 04/20 11:14 98 93 120/79 18 97 --- 04/20 07:54 97.9 96 135/90 1 8 94 4.0L/m 04/20 05:02 98.0 80 135/89 - - 98 --- 04/20 00:17 98.3 91 121/66 - - 98 --- 04/19 19:37 97.7 104 137/76 -- 100 --- 24 Hr Tmax: 98.3F (36.83c) at 04/20 00:1 7 Vital Signs are the last 5 in the [...] 0.9% IV 100 mL 1 gm IVPB [id number] 200 ml/hr 04/19/20 cholecalciferol (Vitamin D3) 20 ,000 IntlUnit PO QPM 04/20/20 clopidogrel (Plavix) 75 mg PO D aily 04/13/20 enoxaparin 40 mg SUB-Q [id number] 04/19/20 folic acid 0.4 mg PO BID [...] 9% IV 250 mL 1,000 mg IVPB [id number] 250 ml/hr 04/14/20 vitamin A and D topical (vitami n A and D topical ointment) 1 appl TOP BID [...] IV 90 mL) 100 mg 10 ml/hr I&O Record In Out Bal 04/20 24hr Tot 1080 1700 -620 04/19 24hr Tot 1440 0065 - 1885 Lines, Tubes, and Drains: 04/14/2020 04:00 Central Lines: Other: o ther PICC Double Labs (Last four charted values) WBC 4.8 (APR 20) 4.6 (SOL 24) 4.8 (APR 18) 5.5 (SOL 20) Hgb L 12.1 (SOL 25) L 12.8 (SOL 24) L 12.5 (SOL 23) L 10.3 (SOL 20) Hct L 38.3 (SOL 25) L 41.5 (SOL 24) L 40.3 (SOL 23) L 33.5 (SOL 20) Plt 183 (SOL 25) 194 (SOL 24) 196 (SOL 23) 153 (SOL 20) Na 136 (SOL 25) 138 (SOL 24) 138 (SOL 23) 138 (SOL 22) K L 3.2 (APR 20) C 2.8 (SOL 25) L 3.1 (SOL 24) C 3.0 (APR 18) CO2 H 33 (MAR 25) H 35 (MAR 24) H 37 (MAR 23) H 37 (APR 17) Cl 97 (APR 20) 100 (MAR 24) 98 (APR 18) 98 (APR 17) Cr H 1.56 (MAR 25) H 1.50 (MAR 24) H 1.60 (MAR 23) H 1.61 (APR 17) BUN H 39 (APR 20) H 36 (MAR 24) H 41 (APR 18) H 45 (APR 17) Glucose Random H 103 (APR 20) 83 (SOL 24) 77 (MAR 23) H 103 (APR 17) Mg 2.0 (APR 20) L 1.6 (APR 19) 2.1 (APR 18) 2.3 (APR 15) Phos 3.4 (APR 19) 3.1 (APR 15) 4.5 (APR 14) H 5.0 (APR 13) Ca L 8.3 (APR 20) 9.2 (APR 19) 9.0 (APR 18) 9.5 (APR 17) PT 13.2 (APR 13) INR 1.00 (APR 13) PTT 28.1 (APR 13) Troponin 0.13 (APR 14) 0.15 (APR 13) 0.06 (APR 13) Total CK 81 (APR 13) Extracted from:Title: History and Physical Author: Dona Lyles MD Date: 04/13/20 # BLE weakness # Urinary retention # Hx of ankylosing spondylosis - MRI thoracic/lumbar spine ordered to r /o LONNY - PT/OT eval # Acute on chronic hypoxic respiratory failure # Acute on chronic systolic CHF exacerbation - LAUREL 10/2019 with EF 45-50% - consulted his benefits administrator Dr Mcguire - home med: bumex 3 mg BID - started on Bumex 2 mg IV TID - renal and cardiologytoadjustdiuretics - trend troponins - strict I/O, daily weights # Lethargy/decreased responsiveness - reports intermittent lethargy dur ing past hospitalization as well - may be 2/2 pain medications vs mj? - will hold PO pain medications - cpap while sleeping - pain management consult # AKSHAT on CKD 3 - follows with Dr. [...] cpap while sleeping lovenox > 2 MNs 04/20/2020 [facility] Extracted from:Title: Infection Admissio n H&P * Author: Adan Nielsen MD Date: 04/12/20 Impression and Plan Open wound left elbow closed by Plastic Surgery Discussed plans with patient and all questions answered Vanco trough is therapeutic Vancomycin 1250 mg q24 h Rx for 14 days Monitor blood work Vanco trough ,CBC ,BMP ,UA weekly ,fax report to my office [phone] Call [phone] for an apt in 2 weeks Extracted from:Title: Infection Admission H&P * Author: Adan Nielsen MD Date: 04/07/20 Impression and Plan Open wound left elbow closed by Plastic Surgery No cultures To discuss antibiotic Rx regarding need and duration 04/13/2020 [facility] Extracted from:Title: EP Discharge Summa ry Author: Shiela Vásquez MD Date: 11/11/19 Discharge Plan Discharge Summary Plan Discharge Status: stable. Discharge instructions given: to patient. Discharge disposition: discharge to home. Prescriptions: continue same medications. Diagnosis Presence of Watchman left atrial appendage closure device (ISZ69-HW Z95.818, Working, Medical). Presence of Watchman left atrial appendage closure device (ATP89-GF Z95.818, Working, Medical). 11/11/2019 [facility] Extracted from:Title: Burn Surgery Consu lt Note Author: Nilo Trejo MD Date: 10/16/19 [...] Nilo Trejo MD PGY1 Urology/General Surgery MSO #[id number] [place] [phone] (Spect); Page [phone] 10/17/2019 [facility] Plan of Care No Data Provided for This Section Social History Social History Date Source Social History TypeResponse Alcohol Never Substance Abuse Use: None. Smoking Status Former smoker; Ready to change: No; Concerns about tobacco use in household: No; Exposure to Tobacco Smoke None; Cigarette Smoking Last 365 Days No; Reg Smoking Cessation Counseling No; Other Tobacco Frequency QUIT SMOKING entered on: 04/04/20 1Quit smoking 201104/03/2020 [facility] Social History TypeResponse Alcohol Never Substance Abuse Use: None. Smoking Status Former smoker; Ready to change: No; Concerns about tobacco use in household: No; Exposure to Tobacco Smoke None; Cigarette Smoking Last 365 Days No; Reg Smoking Cessation Counseling No; Other Tobacco Frequency QUIT SMOKING entered on: 04/14/20 1Quit smoking 201104/03/2020 [facility] Social History TypeResponse Alcohol Never Substance Abuse Use: None. Smoking Status Former smoker; Ready to change: No; Concerns about tobacco use in household: No; Exposure to Tobacco Smoke None; Cigarette Smoking Last 365 Days No; Reg Smoking Cessation Counseling No; Other Tobacco Frequency QUIT SMOKING entered on: 04/14/20 1Quit smoking 201104/03/2020 [facility] Social History TypeResponse Smoking Status Former smoker; Ready to change: No; Concerns about tobacco use in household: No; Exposure to Tobacco Smoke None; Cigarette Smoking Last 365 Days No; Reg Smoking Cessation Counseling No; Other Tobacco Frequency QUIT SMOKING entered on: 06/02/19 1Quit smoking 201106/02/2019 MEHNAZ Pyle Social History TypeResponse 04/24/2016 MEHNAZ Chandra Family History No Data Provided for This Section Advance Directives No Data Provided for This Section Functional Status No Data Provided for This Section
--- OUTSIDE RECORDS SUMMARY | 2020-06-12 21:17 | XMS REPORT | Summary of Care ---
Author Author [facility] Organization [facility] Address Unknown Phone Unavailable Encounter JOSSELIN White(LENY) [id number] Date(s): 11/30/18 - 11/30/18 [facility] [place] [id number] [place] [address]- Discharge Disposition: Home or Self Care Attending Physician: Kelechi Sibley MD Referring Physician: Christopher Summers MD Vital Signs Most recent to 1 oldest [Reference Range]: Height 175.26 cm (11/30/18 10:13 AM) Weight 108.722 kg (11/30/18 10:13 AM) Body Mass Index 35.4 m2 (11/30/18 10:13 AM) Problem List Condition Effective Dates Status [...] Reactions, Alerts No Known Medication Allergies Medications Aldactazide 50 mg-50 mg oral tablet 1 tab, PO, PRN, 0 Refill(s) Start Date: 11/30/18 Status: Ordered aspirin 81 mg tablet, enteric coated 81 mg = 1 tab, PO, Daily, # 90 tab, 3 Refill(s) Start Date: 11/30/18 Status: Ordered baclofen 10 mg oral tablet 10 mg = 1 tab, PO, TID, # 90 tab, 0 Refill(s) Start Date: 11/30/18 Status: Ordered budesonide 0.5 mg/2 mL inhalation suspension 0.5 mg = 2 mL, NEB, Daily, # 60 ea, 11 Refill(s) Start Date: 11/30/18 Status: Ordered carisoprodol 350 mg oral tablet 350 mg = 1 tab, PO, TID, PRN Muscle Spasms, # 42 tab, 0 Refill(s) Start Date: 11/30/18 Stop Date: 12/14/18 Status: Ordered clobetasol topical 0.05% ointment TOP, Daily, 0 Refill(s) Start Date: 11/30/18 Status: Ordered clopidogrel 75 mg oral tablet 75 mg = 1 tab, PO, Daily, # 30 tab, 0 Refill(s) Start Date: 11/30/18 Status: Ordered Cosentyx 150 mg/mL subcutaneous solution SUB-Q, q4wk, 0 Refill(s) Start Date: 11/30/18 Status: Ordered Ferocon oral capsule PO, Daily, 0 Refill(s) Start Date: 11/30/18 Status: Ordered folic acid 400 MCG, BID, 0 Refill(s) Start Date: 11/30/18 Status: Ordered furosemide 80 mg oral tablet 80 mg = 1 tab, PO, Daily, # 30 tab, 0 Refill(s) Start Date: 11/30/18 Status: Ordered hydromorphone 8 mg oral tablet 8 mg = 1 tab, PO, BID, PRN Pain, 0 Refill(s) Start Date: 11/30/18 Stop Date: 12/07/18 Status: Ordered Hyper-Lamine 7% inhalation solution PRN, 0 Refill(s) Start Date: 11/30/18 Status: Ordered Mucus Relief DM PO, BID, 0 Refill(s) Start Date: 11/30/18 Status: Ordered non-formulary RAPATHA INJECTION 140MG Q2WEEK, Refill(s) 0 Start Date: 11/30/18 Status: Ordered non-formulary Daily, WAL-MUCIL, Refill(s) 0 Start Date: 11/30/18 Status: Ordered Oxygen 1 btl, MISC, Bedtime, # 1 btl, 0 Refill(s) Start Date: 11/30/18 Status: Ordered pantoprazole 40 mg oral enteric coated tablet 40 mg = 1 tab, PO, Daily, # 30 tab, 0 Refill(s) Start Date: 11/30/18 Status: Ordered potassium chloride 20 mEq, BID, 0 Refill(s) Start Date: 11/30/18 Status: Ordered pramipexole 0.125 mg oral tablet 0.125 mg = 1 tab, PO, Bedtime, # 30 tab, 1 Refill(s) Start Date: 11/30/18 Status: Ordered ProAir HFA 90 mcg/inh inhalation aerosol with adapter 2 puff, INHALATION, Daily, 0 Refill(s) Start Date: 11/30/18 Status: Ordered rOPINIRole 0.5 mg oral tablet 0.5 mg = 1 tab, PO, Bedtime, # 30 tab, 1 Refill(s) Start Date: 11/30/18 Stop Date: 12/30/18 Status: Ordered sertraline 50 mg oral tablet 50 mg = 1 tab, PO, Daily, # 30 tab, 0 Refill(s) Start Date: 11/30/18 Status: Ordered Vitamin B12 Methylcobalamin SL, qWeek, 0 Refill(s) Start Date: 11/30/18 Status: Ordered Vitamin D3 2000 intl units oral capsule 2,000 IntlUnit = 1 cap, PO, Daily, # 100 cap, 3 Refill(s) Start Date: 11/30/18 Status: Ordered Xarelto 15 mg oral tablet 15 mg = 1 tab, PO, Daily, # 90 tab, 3 Refill(s) Start Date: 11/30/18 Stop Date: 02/28/19 Status: Ordered Results No data available for [...]
--- OUTSIDE RECORDS SUMMARY | 2020-06-12 21:17 | XMS REPORT | Summary of Care ---
Author Author [facility] Organization [facility] Address Unknown Phone Unavailable Encounter HQ Cindy(LENY) [id number] Date(s): 02/02/20 - 02/02/20 [facility] [address] [place] [address]- [phone] Discharge Disposition: Home or Self Care Attending Physician: Christopher Summers MD Referring Physician: Morales Tolbert MD Vital Signs No data available for [...] No data available for this section Immunizations Given and Recorded Vaccine Date Status [...] Frequency QUIT SMOKING 2011; 1 entered on: 02/03/20 1Quit smoking 2011 Assessment and Plan No data available for this section
--- OUTSIDE RECORDS SUMMARY | 2020-06-12 21:17 | XMS REPORT | Summary of Care ---
Author Author [facility] Organization [facility] Address Unknown Phone Unavailable Encounter JOSSELIN White(FIN) [id number] Date(s): 07/23/19 - 07/23/19 [facility] [place] [address] [place], [place] [address] [address] [phone] Discharge Disposition: Home or Self Care Attending [...]
--- OUTSIDE RECORDS SUMMARY | 2020-06-12 21:17 | XMS REPORT | Summary of Care ---
Author Author [facility] Organization [facility] Address Unknown Phone Unavailable Encounter JOSSELIN White(FIN) [id number] Date(s): 03/13/20 - 03/13/20 [facility] [phone] [address] [place] [phone] Attending Physician: Kelechi Sibley MD Vital Signs No data available for [...] Alerts No Known Medication Allergies Medications No Known Medications Results No data available for this section [...] Frequency QUIT SMOKING 2011; 1 entered on: 03/09/20 1Quit smoking 2011 Assessment and Plan No data available for this section
--- OUTSIDE RECORDS SUMMARY | 2020-06-12 21:21 | XMS REPORT | Summary of Care ---
Author Author [facility] - [facility] Organization [facility] Address Unknown Phone Unavailable Care Team Providers Care Lead Security Officer Name Role Phone Christopher Summers PCP Reason for Visit * (Routine) Referred By Contact Referred To Contact Status Reason Specialty Diagnoses / Procedures Horace Mcguire MD [address] [place] [address] Horace Mcguire MD [address] [facility] [address] [place] [address] Closed IM-CARDIOVASCULA Diagnoses R DISEASE / [facility] POSS Cardiac Hospitalist Program Director PCI P rocedures CARDIAC CATH REQUEST FOR SERVICE GA CATH PLMT L HRT & ARTS W/NJX & ANGIO IMG S&I [facility] Encounter Details Care Team Description Date Type Department Horace Mcguire MD [address] [place], [place] [id number] Anesthesia, Clc Cardiac Cath 2, Clc Cardiac Proc Room Angina at rest (Primary Dx) 02/29/2020 [facility] enter Encounter - Hospitalist Program Director, [address] [phone] Allergies No Known Allergiesdocumented as of this encounter (statuses as of 03/01/2020) Medications End Date Status Medication Sig Dispensed Refills Start Date Active LEVOTHYROXINE 100 mcg Take by 0 capsule mouth daily. Active allopurinoL 300 mg tablet Take 300 mg 0 by mouth daily. Active liothyronine 5 mcg tablet Take 5 mcg by 0 mouth daily. Active METHENAMINE HIPPURATE Take by 0 ORAL mouth. Active mirabegron (MYRBETRIQ) 50 Take by 0 mg tablet mouth. Active K-DUR ORAL Take by 0 mouth. Active HYDROmorphone 8 mg tablet Take 8 mg by 0 mouth every 4 (four) hours as needed for Pain. Active ALBUTEROL SULFATE HFA Inhale. 0 INHALE Active albuterol 0.63 mg/3 mL Use 1 Ampule 0 nebulizer solution as directed every 6 (six) hours as needed for Wheezing. Active SERTraline 50 mg tablet Take 50 mg by 0 mouth daily. Active clopidogreL (PLAVIX) 75 Take 75 mg by 0 mg tablet mouth daily. Active predniSONE 20 mg tablet Take 20 mg by 0 mouth daily. Active ALPRAZolam (XANAX) 0.5 mg Take 0.5 mg 0 tablet by mouth 2 (two) times daily. Active CLONIDINE ORAL Take 0.5 mg 0 by mouth at bedtime. Active metOLazone 5 mg tablet Take 5 mg by 0 mouth daily. Active rOPINIRole 0.5 mg tablet Take 0.5 mg 0 by mouth every evening. Active tamsulosin 0.4 mg 24 hr Take by 0 capsule mouth daily. Active pramipexole 0.25 mg Take 0.25 mg 0 tablet by mouth daily. Active glimepiride 1 mg tablet Take 1 mg by 0 mouth daily with breakfast. Active SITagliptin (JANUVIA) 50 Take 50 mg by 0 mg tablet mouth daily. Active METOPROLOL SUCCINATE 25 Take 12.5 mg 0 mg CSpX by mouth daily. documented as of this encounter (statuses as of 03/01/2020) Active Problems Not on filedocumented as of this encounter (statuses as of 03/01/2020) Social History Date Tobacco Use Types Packs/Day Years Used Never Assessed Sex Assigned at Date Recorded Not on file Industry Job Start Date Occupation Not on file Not on file Not on file Travel End Travel History Travel Start No recent travel history available. Date Recorded COVID-19 Exposure Response 02/29/2020 9:48 AM CDT In the last month, have you been in contact with No / Unsure someone who was confirmed or suspected to have Coronavirus / COVID-19? documented as of this encounter Last Filed Vital Signs Reading Time Taken Comments Vital Sign 131/82 02/29/2020 5:30 PM CDT Blood Pressure 102 02/29/2020 5:30 PM CDT Pulse 37 C (98.6 F) 02/29/2020 11:10 AM CDT Temperature 15 02/29/2020 5:15 PM CDT Respiratory Rate 96% 02/29/2020 5:15 PM CDT Oxygen Saturation - - Inhaled Oxygen Concentration 98.4 kg (216 lb 14.9 oz) 02/29/2020 3:18 PM CDT Weight 178 cm (5' 10.08") 02/29/2020 3:18 PM CDT Height 31.06 02/29/2020 3:18 PM CDT Body Mass Index documented in this encounter Discharge Instructions * Instructions* Shankar Corral RN - 02/29/2020 Patient Discharge Instructions Follow instructions as indicated below: Discharge Orders Activity As Tolerated Lift nothing heavier than 5 pounds for 2 weeks Do not operate a motorized vehicle for 2 days Keep area dry and clean Do not remove band-aid for the first 24 hours after procedure Do not soak in bathtub or hot tub for the first 24 hours after procedure Watch for bleeding, swelling, pain, fever, and any discharge call the Hospitalist Program Director ( during hours) Order Comments: At nights, weekends or holidays, call the [facility] hospital steam cleaning machine operator at . Ask the steam cleaning machine operator to page the Cardiac Cath Fellow [facility]. Avoid making important life decisions for the first 48 hours No strenuous activity for 72 hours Drink plenty of water Continue previous outpatient medications Hold Metformin for 48 hours Resume pre procedure diet Order Comments: Resume pre procedure diet Weight: In general, sudden weight gains or losses should be reported to your pro vider. Cardiac patients should weigh daily and notify their provider for a weig ht gain of 3 pounds per day or 5 pounds per week. Follow-up appointments: To schedule other appointments, call the [facility] Health Access Center at [phone] or . You may also make appointments online by going to [email or web address] and follow the Request Appointment quicklink. Take Home Medications These are medications ordered for you by your healthcare provider. Do not take a ny other medications or supplements unless advised by your healthcare provider. Patient's Medications START taking these medications No medications on file CONTINUE taking these medications which have NOT CHANGED ALBUTEROL 0.63 MG/3 ML NEBULIZER SOLUTION Use 1 Ampule as directed every 6 ( six) hours as needed for Wheezing. ALBUTEROL SULFATE HFA INHALE Inhale. ALLOPURINOL 300 MG TABLET Take 300 mg by mouth daily. ALPRAZOLAM (XANAX) 0.5 MG TABLET Take 0.5 mg by mouth 2 (two) times daily. CLONIDINE ORAL Take 0.5 mg by mouth at bedtime. CLOPIDOGREL (PLAVIX) 75 MG TABLET Take 75 mg by mouth daily. GLIMEPIRIDE 1 MG TABLET Take 1 mg by mouth daily with breakfast. HYDROMORPHONE 8 MG TABLET Take 8 mg by mouth every 4 (four) hours as needed for Pain. K-DUR ORAL Take by mouth. LEVOTHYROXINE 100 MCG CAPSULE Take by mouth daily. LIOTHYRONINE 5 MCG TABLET Take 5 mcg by mouth daily. METHENAMINE HIPPURATE ORAL Take by mouth. METOLAZONE 5 MG TABLET Take 5 mg by mouth daily. METOPROLOL SUCCINATE 25 MG CSPX Take 12.5 mg by mouth daily. MIRABEGRON (MYRBETRIQ) 50 MG TABLET Take by mouth. PRAMIPEXOLE 0.25 MG TABLET Take 0.25 mg by mouth daily. PREDNISONE 20 MG TABLET Take 20 mg by mouth daily. ROPINIROLE 0.5 MG TABLET Take 0.5 mg by mouth every evening. SERTRALINE 50 MG TABLET Take 50 mg by mouth daily. SITAGLIPTIN (JANUVIA) 50 MG TABLET Take 50 mg by mouth daily. TAMSULOSIN 0.4 MG 24 HR CAPSULE Take by mouth daily. START taking Modified Medications as Prescribed No medications on file STOP taking these medications No medications on file Medications: Your doctor may prescribe medicine to prevent blood clots. You ma y also have to take medicine to prevent chest pain. Take your medicine as usual after the procedure unless your doctor has told you to stop. Any changes in your medicine's schedule will be explained to you. For questions regarding follow-up instructions call the [facility] Health Access Cente r at or For worsening symptoms/changing condition/problems or questions: During normal business hours call the [facility] Cardiac Hospitalist Program Director at . At nights, weekends or holidays, call the [facility] hospital steam cleaning machine operator at . Ask the steam cleaning machine operator to page the Cardiac Cath Fellow who is on-call. Emergency: Go to the closest emergency room or call 911 Signs and Symptoms of a Problem: Call your doctor if you have any of the follow ing problems: Fever Swelling, pain, redness around the puncture site Foul smell or drainage from the site Odd changes in sensations, like numbness, tingling, coldness or pain in the a rm or leg where the catheter was inserted. If you start Bleeding: Apply pressure to the site. If the bleeding continues, h ave someone call your doctor and make arrangements to see him/her. Please follo w the doctor's directions. Our Goal is to Always Provide You with Very Good Care! We will be mailing you a survey, Please complete and return at your convenience. Thank You TOBACCO AVOIDANCE Exposure to tobacco either from smoking or from second hand (environmental) smok e or smokeless tobacco (snuff) is damaging to your health. This information is to encourage everyone to avoid tobacco exposure. It is recommended that you: ? If you smoke or use smokeless tobacco, we encourage you to quit. ? If you have already quit smoking, continue your good work! ? If you do not smoke or use smokeless tobacco, do not start. ? Avoid secondhand smoke. Additional Resources You may want to contact these organizations for further information on smoking a nd how to quit. [place] [employer], http://www.lungusa.org/stop-smoking/ [place] [employer] Society, http://www.cancer.org/Healthy/StayAwayfromTobacco/index [place] Heart Association, http://www.heart.org/HEARTORG/GettingHealthy/QuitSmo sharon/Quit-Smoking_[facility]_001085_SubHomePage.jsp documented in this encounter Plan of Treatment Health Maintenance Due Date Last Done Comments DTaP,Tdap,and Td Vaccines 1955 (1 - Tdap) COLONOSCOPY 1994 Zoster Recombinant 1994 Vaccine (SHINGRIX) (1 of 2) Medicare Wellness Visit 2009 PNEUMOCOCCAL VACCINES 65+ 2009 (1 of 2 - PCV13) INFLUENZA VACCINE (Season 06/27/2020 Ended) documented as of this encounter Procedures Comments Procedure Name Priority Date/Time Associated Diag nosis CATH PROCEDURE LOG Routine 02/29/2020 3:34 PM CDT CORONAVIRUS COVID-19 STAT 02/29/2020 Angina at rest TESTING 10:15 AM CDT CBC WITH DIFFERENTIAL Routine 02/29/2020 Angina a t rest 10:15 AM CDT PROTHROMBIN TIME / INR Routine 02/29/2020 Angina at rest 10:15 AM CDT CBC WITH DIFFERENTIAL Routine 02/29/2020 Angina a t rest 10:15 AM CDT BASIC METABOLIC PANEL Routine 02/29/2020 Angina a t rest (NA, K, CL, CO2, GLUCOSE, 10:15 AM CDT BUN, CREATININE, CA) NOTICE OF PRIVACY Routine 02/29/2020 PRACTICES 9:54 AM CDT CONSENT/REFUSAL FOR Routine 02/29/2020 DIAGNOSIS AND TREATMENT 9:54 AM CDT ASSIGNMENT OF BENEFITS Routine 02/29/2020 9:54 AM CDT documented in this encounter Results * CBC WITH DIFFERENTIAL (02/29/2020 10:15 AM CDT) WBC 10.51 4.20 - 10.70 [facility] 10*3/L [facility] RBC 5.13 4.26 - 5.52 10*6/L [facility] HGB 13.2 12.2 - 16.4 g/dL [facility] HCT 46.7 38.4 - 49.3 % [facility] MCV 91.0 81.7 - 95.6 fL [facility] MCH 25.7 (L) 26.1 - 32.7 pg [facility] MCHC 28.3 (L) 31.2 - 35.0 g/dL [facility] RDW-SD 59.9 (H) 38.5 - 51.6 fL [facility] RDW-CV 18.7 (H) 12.1 - 15.4 % [facility] PLT 165 150 - 328 10*3/L [facility] MPV 9.8 9.8 - 13.0 fL [facility] NRBC/100 WBC 1.1 0.0 - 10.0 /100 WBCs [facility] NRBC x10^3 0.12 10*3/L [facility] SEG % 75 33 - 76 % [facility] BAND % 9 (H) 0 - 1 % [facility] META % 1 (H) <=0 % [facility] MYELO % 2 (H) <=0 % [facility] LYMPH % 5 (L) 14 - 54 % [facility] LG GRAN LYMPH % 2 (H) <=0 % [facility] LABORATOR Y [facility] MONO % 6 (H) 0 - 4 % [facility] ANC 8.83 (H) 1.99 - 6.95 10*3/uL [facility] POLYCHROMASIA 2+ 2+ [facility] Specimen Blood Performing Organization Address City/State/Zipcode Ph one Number [facility] CLIA: [id number], [address] [place], [place] [address] [facility] * BASIC METABOLIC PANEL (NA, K, CL, CO2, GLUCOSE, BUN, CREATININE, CA) (02/29/2020 10:15 AM CDT) NA 134 (L) 135 - 145 mmol/L [facility] K 3.6 3.5 - 5.0 mmol/L [facility] R[facility] CL 84 (L) 98 - 108 mmol/L [facility] LABOR[facility] Y [facility] CO2 TOTAL 44 (H) 23 - 31 mmol/L [facility] AGAP 6 2 - 16 [facility] BUN 54 (H) 7 - 23 mg/dL [facility] GLUCOSE 191 (H) 70 - 110 mg/dL [facility] CREATININE 1.69 (H) 0.60 - 1.25 mg/dL [facility] CALCIUM 8.6 8.6 - 10.6 mg/dL [facility] RY SERVICES-CLEAR [facility] eGFR 39.8 mL/min/1.73m2 [facility] Calculation SERVICES-CLEAR (Non-[facility] [place]) eGFR 48.2 mL/min/1.73m2 [facility] Calculation SERVICES-CLEAR ([facility]) Specimen Blood Narrative Performed At [facility] of Glomerular Filtration Rate (GFR) and S taging of Kidney Disease* [facility] + + +------ + [facility] | GFR (mL/min/1.73 m2) | With Kidney Damage | [facility] Kidney Damage FRISCO + + -------+ + | >90 | S tage one | Normal + + -------+ + | 60-89 | St age two | Decreased GFR + + -------+ + | 30-59 | St age three | Stage three + + -------+ + | 15-29 | St age four | Stage four + + -------+ + | <15 (or dialysis) | Stage fi ve | Stage five + + -------+ + *Each stage assumes the associated GFR level has been in effect for at least three months. Stages 1 to 5, with or without kidney disease, indicate chronic kidney disease. Notes: Determination of stages one and two (with eGFR >59mL/min/1.73 m2) requires estimation of kidney damage fo r at least three months as defined by structural or functional abnormalities of the kidney, manifested by either: Pathological abnormalities or Markers o f kidney damage (including abnormalities in the composition of the blood or urin e or abnormalities in imaging tests). Performing Organization Address [facility] one Number [facility] CLIA: [id number], [address] [place] [address] [facility] * PROTHROMBIN TIME / INR (02/29/2020 10:15 AM CDT) PROTIME PATIENT 10.5 10.1 - 12.6 Seconds [facility] INR 1.0Comment: Normal INR <1.1; [facility] Warfarin Therapeutic range 2.0 [facility] to 3.0 or 2.5 [address]5, [facility] depending upon the indications. Specimen Blood Performing Organization Address [facility] Ph one Number [facility] CLIA: [id number], [address] [place] [address] 98 [facility] * CORONAVIRUS COVID-19 TESTING (02/29/2020 10:15 AM CDT) SARS-CoV-2 Not Detected Not Detected [facility] Specimen Swab - NASOPHARYNGEAL SWAB Narrative Performed At ID NOW COVID-19 Assay is an isothermal nucleic acid amplification test intended [facility] for the qualitative detection of nucleic acid from SA RS-CoV-2 viral RNA in [facility] nasopharyngeal (HEMSTITCHER) specimens. It is used under Emerg ency Use Authorization CAMPUS (EUA) by FDA. The limit of detection (L OD) of the assay is 125 Genome Equivalents/mL. A positive result is indicative of the presence of SARS-CoV-2 RNA. Clinical correlation with patient history and ot her diagnostic information is necessary to determine patient infection status. A negative (Not Detected) result does n ot preclude SARS-CoV-2 infection. Clinical correlation with patient histo ry and other diagnostic information should be used in patient management de cisions. Invalid: Please collect a new specimen for repeat patient testing if clinically indicated. Performing Organization Address City/State/Zipcode Ph one Number [facility] CLIA: [id number], [address] [place] [address] 98 [facility] documented in this encounter Visit Diagnoses Diagnosis Angina at rest - Primary Other and unspecified angina pectoris documented in this encounter Administered Medications Action Date Dose Rate Site Medication Order MAR Action 02/29/2020 3:38 PM CDT 3,000 Units heparin 1,000 unit/mL injection Given Slow IV Push, PRN, Starting Fri02/29/20 at 1538, Until Fri02/29/20 at 1538, Routine 02/29/2020 3:34 PM CDT 1 mL lidocaine 1% (PF) (XYLOCAINE) injection Given Infiltration, PRN, Starting Fri02/29/20 at 1534, Until Fri02/29/20 at 1534, Routine 02/29/2020 3:38 PM CDT 200 mcg nitroglycerin (TRIDIL) 2 mg in 10 mL D5W Given for Cardiac Cath Intravenous, PRN, Starting e 02/29/20 a t 1538, Until Tu02/29/20 at 1538, Routine 02/29/2020 3:38 PM CDT 2.5 mg verapamil (ISOPTIN) injection Given Intravenous, PRN, Starting 02/29/20 a t 1538, Until Fri02/29/20 at 1538, Routine documented in this encounter Insurance Type Payer Benefit Subscriber ID Effective Phone Address Plan / Dates Group Medicare Adv FFS HUMANA - MANAGED MEDICARE HUMANA [id number] 2019-P MEDICARE resent documented as of this encounter
--- OUTSIDE RECORDS SUMMARY | 2020-06-12 21:21 | XMS REPORT | Summary of Care ---
Author Author [facility] - Health Organization [facility] - [facility] Address Unknown Phone Unavailable Care Team Providers Care Computer Assistant Name Role Phone Kristopher Christopher Herbert PCP Encounter Details Care Team Description Date Type Department Doctor Unassigned, [place] [address] [place] [id number] 03/01/2020 Orders Only [facility] [address] [place] [address] Allergies No Known Allergiesdocumented as of this [...] of this encounter Last Filed Vital Signs Not on filedocumented in this encounter Plan of Treatment Health Maintenance Due Date Last Done Comments DTaP,Tdap,and Td Vaccines 1955 (1 - Tdap) COLONOSCOPY 1994 Zoster Recombinant 1994 Vaccine (SHINGRIX) (1 of 2) Medicare Wellness Visit 2009 PNEUMOCOCCAL VACCINES 65+ 2009 (1 of 2 - PCV13) INFLUENZA VACCINE (Season 06/27/2020 Ended) documented as of this encounter Procedures Comments Procedure Name Priority Date/Time Associated Diag nosis EXTERNAL PROVIDER RECORDS Routine 03/01/2020 12:01 AM CDT documented in this encounter Results Not on filedocumented in this encounter Insurance Type Payer Benefit Subscriber ID Effective Phone Address Plan / Dates Group Medicare Adv FFS HUMANA - MANAGED MEDICARE HUMANA [id number] 2019-P MEDICARE resent documented as of this encounter
--- OUTSIDE RECORDS SUMMARY | 2020-06-12 21:21 | XMS REPORT | Summary of Care ---
Author Author [facility] - Health Organization [facility] Address Unknown Phone Unavailable Care Team Providers Care Manager Play Name Role Phone Christopher Summers PCP Reason for Visit * Reason Comments Medication Problem questions about discharge i nstructions from manager labor delivery Encounter Details Care Team Description Date Type Department Kena Soto, MELISA [address] [place] [address] Medication Problem (questions about disc harge instructions from manager labor delivery) 02/29/2020 Nurse Triage [facility] [address] [place] [phone] Allergies No Known Allergiesdocumented as of this encounter (statuses as of 02/29/2020) Medications End Date Status Medication Sig Dispensed [...] as of this encounter (statuses as of 02/29/2020) Active Problems Not on filedocumented as of this encounter (statuses as of 02/29/2020) Social History Date Tobacco Use Types Packs/Day [...] 06/27/2020 Ended) documented as of this encounter Results Not on filedocumented in this encounter Insurance Type Payer Benefit Subscriber ID Effective Phone Address Plan / Dates Group Medicare Adv FFS HUMANA - MANAGED MEDICARE HUMANA [id number] 2019-P MEDICARE resent documented as of this encounter
--- OUTSIDE RECORDS SUMMARY | 2020-06-12 21:21 | XMS REPORT | Summary of Care ---
Author Author [facility] - Health Organization [facility] - [facility] Address Unknown Phone Unavailable Care Team Providers Care Motorcycle Tester Name Role Phone Christopher Summers PCP Reason for Visit * Reason Comments Results Encounter Details Care Team Description Date Type Department Horace Mcguire MD [address] [facility] [address] [place] [address] Results 02/29/2020 Telephone [facility] [address] [place] [phone] Allergies No Known Allergiesdocumented as of [...] filedocumented in this encounter Plan of Treatment Care Team Description Date Type Specialty Horace Mcguire MD [address] [facility] [address] [place] [address] [phone] Anesthesia, Clc Cardiac Cath 2, Clc Cardiac Proc Room Angina at rest (Primary Dx) 02/29/2020 Hospital Cardiac Crystal Slicer Encounter Health Maintenance Due Date Last Done Comments [...] Adv FFS HUMANA - MANAGED MEDICARE HUMANA [id number] 2019-P MEDICARE resent documented as of this encounter
--- OUTSIDE RECORDS SUMMARY | 2020-06-12 21:21 | XMS REPORT | Continuity of Care Document ---
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 Size: 40 mg Product Wasted: ___ mg [facility] cefepime 2020-04-13 15:12:00 No Notes: (Same As: Maxipime) MEDICATION WASTE Product Size: 1000 mg Product Wasted: ___ mg [facility] Vancomycin 2020-04-13 15:12:00 No 2001 mg: infuse over 2.5 hours For adult patients only: Round to nearest 250 mg per Medical Staff approval MEDICATION WASTE Product Size: 1000 mg Product Wasted: ___ mg Geoff Doyle Saline Flush 0.9% 2020-04-13 15:07:00 No Notes: Same as: BD Posiflush Sterile [facility] Silverann Testosterone 2020-04-12 14:00:00 No 200 mg, 1 mL, Route: IM, Drug form: INJ, Q14D, Dosing Weight 99.2, kg, Start date: 04/12/20 9:00:00 CDT, Duration: 30 day, Stop date: 05/10/20 9:00:00 CDT, 0 Geoff Doyle Docusate Sodium 100 MG Oral Capsule 2020-04-12 11:39:00 Yes 100 mg = 1 cap, PO, BID, PRN Constipation, # 20 cap, 0 Refill(s) Geoff Doyle senna oral tablet 2020-04-12 11:39:00 Yes 2 tab, PO, Bedtime, PRN for constipation, X 30 day, # 60 tab, 0 Refill(s) Geoff Doyle Saline Flush 0.9% 2020-04-09 21:00:00 No Notes: (Same as: BD Posiflush) Geoff Doyle Lidocaine Hydrochloride 10 MG/ML Injectable Solution 04-09 15:00:00 No Notes: (Same as: Xylocaine) Geoff Doyle Saline Flush 0.9% 2020-04-09 14:51:00 No Notes: (Same as: BD Posiflush) Geoff Doyle vancomycin + Sodium Chloride 0.9% IV 250 mL 2020-04-09 01:00:00 No 2001 mg: infuse over 2.5 hours For adult patients only: Round to nearest 250 mg per Medical Staff approval MEDICATION WASTE Product Size: 1000 mg Product Wasted: 0 mg Geoff Doyle sennosides, DETENTION 2020-04-08 22:00:00 No Notes: (Same as: Senokot) Geoff Doyle Potassium Chloride 1.33 MEQ/ML Oral Solution 2020-04-08 21:22:00 No Notes: (Same as: Potassium Chloride) [facility] Miralax 2020-04-08 19:47:00 No Notes: Dissolve in 8 oz of water or juice. (Same as: Miralax) Geoff Silvera nn docusate sodium 2020-04-08 19:13:00 No Notes: (Same as: Colace) (Do Not Crush) [facility] Potassium Chloride 2020-04-08 17:00:00 No Notes: (Same as: KCL) Infuse over 2 hours. [facility] Potassium Chloride 2020-04-08 16:27:00 No Notes: (Same as: Potassium Chloride) [facility] Lovenox 2020-04-08 14:00:00 No Notes: (Same as: Lovenox) [facility] Potassium Chloride 1.33 MEQ/ML Oral Solution 2020-04-08 14:00:00 No 20 mEq, 1 tab, Route: PO, Drug form: ERTAB, Daily, Dosing Weight 99.2, kg, Start date: 04/08/20 9:00:00 CDT, Duration: 30 day, Stop date: 05/07/20 9:00:00 CDT, 0 [facility] Budesonide 0.25 MG/ML Inhalant Solution 2020-04-08 13:00:00 No Notes: (Same As: Pulmicort) [facility] cui ropinirole 2020-04-08 13:00:00 No Notes: (S abelardo as: Requip) [facility] Thyroxine 2020-04-08 11:00:00 No 100 microgram, 1 tab, Route: PO, Drug form: TAB, Q6AM, Dosing Weight 99.2, kg, Start date: 04/08/20 6:00:00 CDT, Duration: 30 day, Stop date: 05/07/20 6:00:00 CDT, 0 [facility] Triiodothyronine 2020-04-08 11:00:00 No Notes: (Same as: Cytomel) [facility] Baclofen 2020-04-08 02:00:00 No Notes: (Manfred e As: Lioresal) [facility] 24 HR Metoprolol Tartrate 25 MG Extended Release Tablet [Top rol] 2020-04-08 02:00:00 No 12.5 mg, 0 .5 tab, Route: PO, Drug form: TAB, QAM and Bedtime, Start date: 04/07/20 21:00:00 CDT, Duration: 30 day, Stop date: 05/07/20 9:00:00 CDT, 0 [facility] latanoprost 2020-04-08 02:00:00 No 1 drp, Route: BOTH EYES, Bedtime, Drug form: SOLN, Start date: 04/07/20 21:00:00 CDT, Duration: 30 day, Stop date: 05/06/20 21:00:00 CDT, 0 [facility] Albuterol 0.83 MG/ML Inhalant Solution 2020-04-08 01:00:00 No Notes: SEE RT DOCUMENTATION (Same as: Proventil) [facility] Allopurinol 2020-04-07 22:00:00 No 50 mg, 0.5 tab, Route: PO, Drug form: TAB, QPM, Dosing Weight 99.2, kg, Start date: 04/07/20 17:00:00 CDT, Duration: 30 day, Stop date: 05/06/20 17:00:00 CDT, 0 [facility] Bumetanide 2020-04-07 22:00:00 No Notes: (S abelardo As: Bumex) [facility] Cetirizine 2020-04-07 22:00:00 No Notes: (S abelardo As: Zyrtec) [facility] Folic Acid 2020-04-07 22:00:00 No 400 microgram, 1 tab, Route: PO, Drug form: TAB, QAM & PM, Dosing Weight 99.2, kg, Start date: 04/07/20 17:00:00 CDT, Duration: 30 day, Stop date: 05/07/20 8:30:00 CDT, 0 [facility] gabapentin 300 MG Oral Capsule 2020-04-07 22:00:00 No Notes: (Same as: Neurontin) [facility] methenamine hippurate 2020-04-07 22:00:00 No 25 gm, Route: PO, QAM & PM, Dosing Weight 99.2, kg, Start date: 04/07/20 17:00:00 CDT, Duration: 30 day, Stop date: 05/07/20 8:30:00 CDT, ABX Indication: Skin/Soft Tissue Infection [facility] Pramipexole 2020-04-07 22:00:00 No Notes: ( Same as: Mirapex) [facility] Sertraline 2020-04-07 22:00:00 No Notes: (S abelardo as: Zoloft) [facility] tamsulosin 2020-04-07 22:00:00 No Notes: (Same As: Flomax) "Do Not Crush" Geoff Doyle Cefazolin 2020-04-07 21:00:00 No Notes: (Same As: Ancef, Kefzol) MEDICATION WASTE Product Size: 1000 mg Product Wasted: _0__ mg [facility] Dextrose 50% Syringe (D50W) 2020-04-07 20:48:00 No 12.5 gm, 25 mL, Route: IVP, Drug Form: INJ, Dosing Weight 99.091, kg, PRN, PRN Blood Glucose Results, Start date: 04/07/20 15:48:00 CDT, Duration: 30 day, Stop date: 05/07/20 15:47:00 CDT, 0 Geoff Crisostomo n Glucagon 2020-04-07 20:48:00 No 1 mg, Route: IM, Drug form: PDR/INJ, PRN, Dosing Weight 99.091, kg, PRN Blood Glucose Results, Start date: 04/07/20 15:48:00 CDT, Duration: 30 day, Stop date: 05/07/20 15:47:00 CDT, 0 Geoff Doyle Insulin Lispro 2020-04-07 20:48:00 No Notes: (Same as: Humalog) Roll in palms of hands gently; Do not shake vigorously. WASTE: F/P - Black; E - Municipal Trash Bin Stable for 28 days at room temperature. Expires in days from Date [facility] Basil robert vancomycin + Sodium Chloride 0.9% IV 500 mL 2020-04-07 20:21:00 No 2001 mg: infuse over 2.5 hours For adult patients only: Round to nearest 250 mg per Medical Staff approval MEDICATION WASTE Product Size: 1000 mg Product Wasted: ___ mg [facility] Folic Acid 0.4 MG Oral Tablet 2020-04-07 19:19:00 Yes 0.4 mg = 1 tab, PO, Daily, # 100 tab, 0 Refill(s) Lela Doyle Vitamin B12 Methylcobalamin 5000 mcg sublingual tablet 2020-04-07 19:19:00 Yes 10,000 microgram = 2 tab, PO, qWeek, 0 R efill(s) Geoff Doyle Vitamin D3 10,000 intl units oral capsule 2020-04-07 19:19:00 Yes 20,000 IntlUnit = 2 cap, PO, QPM, 0 Refill(s) Geoff Doyle cetirizine hydrochloride 10 MG Oral Tablet [Wal-Zyr] 2 19:19:00 Yes 10 mg = 1 tab, PO, Daily, 0 Refill(s) Geoff Doyle WAL-MUCIL 2020-04-07 19:19:00 Yes RANGEL-MUCIL, 8 cap, PO, QAM, Refill(s) 0 Geoff Doyle Bisacodyl 5 MG Enteric Coated Tablet [Dulcolax] 2020-04-07 19:19 :00 Yes 5 mg = 1 tab, PO, QPM, 0 Refill(s) Geoff Doyle Mucus Relief Sinus 2020-04-07 19:19:00 Yes 400 mg =, PO, BID, 0 Refill(s) Geoff Doyle albuterol 90 mcg/inh inhalation aerosol 2020-04-07 18:43:00 Yes 2 puff, INHALATION, Q6H, 0 Refill(s) [facility] Albuterol 0.83 MG/ML Inhalant Solution 2020-04-07 18:43:00 Yes 2.5 mg = 3 mL, NEB, BID, 0 Refill(s) [facility] alclometasone dipropionate 0.5 MG/ML Topical Cream 2020-03 18:43:00 Yes TOP, Daily, 0 Refill(s) Geoff Doyle allopurinol 300 mg oral tablet 2020-04-07 18:43:00 Yes 300 mg = 1 tab, PO, QPM, 0 Refill(s) Geoff butt Alprazolam 0.5 MG Oral Tablet [Xanax] 2020-04-07 18:43:00 Y es 0.5 mg = 1 tab, PO, PRN, 0 Refill(s) Geoff Doyle baclofen 10 mg oral tablet 2020-04-07 18:43:00 Yes 10 mg = 1 tab, PO, BID, 0 Refill(s) Geoff Doyle clonazePAM 0.5 mg oral tablet 2020-04-07 18:43:00 Yes 0.5 mg = 1 tab, PO, BID, PRN anxiety, # 60 tab, 0 Refill(s) Geoff Doyle clopidogrel 75 MG Oral Tablet [Plavix] 2020-04-07 18:43:00 Yes 75 mg = 1 tab, PO, Daily, 0 Refill(s) Zena Doyle hydromorphone 8 mg oral tablet 2020-04-07 18:43:00 Yes 8 mg = 1 tab, PO, PRN, PRN Pain, 0 Refill(s) Geoff Doyle Sodium Chloride 1.2 MEQ/ML Inhalant Solution [Hyper-Lamine] 2020-04-07 18:43:00 Yes PRN, 0 Refill(s) Geoff Doyle gabapentin 300 MG Oral Capsule 2020-04-07 18:43:00 Yes 300 mg = 1 cap, PO, QPM, 0 Refill(s) Geoff butt latanoprost 0.05 MG/ML Ophthalmic Solution [Xalatan] 2 18:43:00 Yes 1 drp, QPM, 0 Refill(s) Geoff Doyle levothyroxine 100 mcg (0.1 mg) oral tablet 2020-04-07 18:43:00 Yes 100 microgram = 1 tab, PO, Daily, 0 Refill(s) Geoff Doyle liothyronine 5 mcg oral tablet 2020-04-07 18:43:00 Yes 5 microgram = 1 tab, PO, Daily, 0 Refill(s) Geoff Doyle methenamine hippurate 1 g oral tablet 2020-04-07 18:43:00 Y es 0.5 gm = 0.5 tab, PO, BID, 0 Refill(s) Zena Doyle metoprolol tartrate 25 mg oral tablet 2020-04-07 18:43:00 Y es 12.5 mg = 0.5 tab, PO, BID, 0 Refill(s) Zabrina Doyle Pramipexole dihydrochloride 0.25 MG Oral Tablet [Mirapex] 2020-04-07 18:43:00 Yes 0.25 mg = 1 tab, PO, Bedtime, 0 Refill(s) Geoff Doyle 24 HR mirabegron 50 MG Extended Release Tablet [Myrbetriq] 2020-04-07 18:43:00 Yes 50 mg = 1 tab, PO, QPM, # 30 ta b, 0 Refill(s) Geoff Doyle potassium chloride 20 mEq oral tablet, extended release (KCL ) 2020-04-07 18:43:00 Yes 20 mEq = 1 tab, PO, Daily, # 30 tab, 3 Refill(s) Geoff Doyle rOPINIRole 0.5 mg oral tablet 2020-04-07 18:43:00 Yes 0.5 mg = 1 tab, PO, BID, 0 Refill(s) Geoff Timmons nn predniSONE 20 mg oral tablet 2020-04-07 18:43:00 Yes 20 mg = 1 tab, PO, QAM, 0 Refill(s) Geoff Doyle predniSONE 10 mg oral tablet 2020-04-07 18:43:00 Yes 10 mg = 1 tab, PO, QPM, 0 Refill(s) Geoff Doyle Sertraline 50 MG Oral Tablet [Zoloft] 2020-04-07 18:43:00 Y es 50 mg = 1 tab, PO, QPM, # 30 tab, 1 Refill(s) Geoff Doyle Tamsulosin hydrochloride 0.4 MG Oral Capsule [Flomax] 2020-04-07 18:43:00 Yes 0.4 mg = 1 cap, PO, BID, 0 Refill(s) Geoff Doyle Testosterone Cypionate 200 mg/mL intramuscular solution 2020-04-07 18:43:00 Yes 200 mg = 1 ml, IM, q2wk, 0 Refill(s) [facility] Insulin regular 2020-04-07 15:25:00 No Notes: (Same as: Humulin R) Roll in palms of hands gently; Do not shake vigorously. WASTE: F/P - Black; E - Municipal Trash Bin Stable for 31 days at room temperature Expires in days from Date [facility] sugammadex (ANES) 2020-04-07 15:24:00 No Route: IV, Drug form: SOLN, ONCE, Stop date: 04/07/20 10:24:00 CDT [facility] norepinephrine (ANES) 2020-04-07 15:18:00 No Route: IV, Drug form: INJ, ONCE, Stop date: 04/07/20 10:18:00 CDT [facility] sugammadex 2020-04-07 14:54:00 No Notes: (S abelardo as: Bridion) [facility] albuterol ([facility]) 2020-04-07 14:48:00 No Route: INHALATION, Drug form: AERO/A, ONCE, Stop date: 04/07/20 9:48:00 CDT [facility] ceFAZolin ([facility]) 2020-04-07 14:38:00 No Route: IV, Drug form: INJ, ONCE, Stop date: 04/07/20 9:38:00 CDT Or wanda Doyle fentaNYL ([facility]) 2020-04-07 14:33:00 No Route: IV, Drug form: INJ, ONCE, Stop date: 04/07/20 9:33:00 CDT [facility] esmolol ([facility]) 2020-04-07 14:33:00 No Route: IV, Drug form: INJ, ONCE, Stop date: 04/07/20 9:33:00 CDT [facility] Hydralazine 2020-04-07 14:31:00 No Notes: (Same as: Apresoline) Push over 5 minutes [facility] esmolol 2020-04-07 14:31:00 No Notes: (Same as: Brevibloc) [facility] Labetalol 2020-04-07 14:31:00 No 10 mg, 2 mL, Route: IVP, Drug form: INJ, Q5Min, Dosing Weight 99.2, kg, PRN Elevated BP, Start date: 04/07/20 9:31:00 CDT, Duration: 5 doses or times, Stop date: 04/08/20 0:00:00 CDT, 0 [facility] Acetaminophen 2020-04-07 14:31:00 No Notes: Max acetaminophen 4000 mg/day (4 gm/day). (Same as: Tylenol Extra Strength) [facility] Oxycodone Hydrochloride 5 MG Oral Tablet 2020-04-07 14:31:00 No Notes: (Same as: Roxicodone) [facility] Hydromorphone 2020-04-07 14:31:00 No Notes: Same as Dilaudid [facility] Flumazenil 2020-04-07 14:31:00 No Notes: (S abelardo as: Romazicon) [facility] Naloxone 2020-04-07 14:31:00 No Notes: Same as Narcan [facility] Ondansetron 2020-04-07 14:31:00 No Notes: (Same as: Amisha) MEDICATION WASTE Product Size: 4 mg Product Wasted: ___ mg [facility] lidocaine ([facility]) 2020-04-07 14:28:00 No Route: IV, Drug form: INJ, ONCE, Stop date: 04/07/20 9:28:00 [facility] 2020-04-07 14:28:00 No Route: IV, Drug form: INJ, ONCE, Stop date: 04/07/20 9:28:00 CDT [facility] rocuronium ([facility]) 2020-04-07 14:28:00 No Route: IV, Drug form: INJ, ONCE, Stop date: 04/07/20 9:28:00 CDT [facility] ([facility] 2020-04-07 14:12:00 No Route: IV, Drug form: INJ, ONCE, Stop date: 04/07/20 9:12:00 CDT [facility] sugammadex 2020-04-07 14:06:00 No Notes: (S abelardo as: Bridion) [facility] Saline Flush 0.9% 2020-04-07 14:00:00 No Notes: Same as: BD Posiflush Sterile [facility] Clobetasol Propionate 0.0005 MG/MG Topical Ointment 04-07 14:00:00 No Notes: (clobetasol propionat e 0.05% 15 gm top OIN) (Same As: Temovate) [facility] Vitamin D3 2020-04-07 14:00:00 No Notes: Sa me as : Vitamin D3 [facility] 24 HR mirabegron 50 MG Extended Release Tablet [Myrbetriq] 2020-04-07 14:00:00 No Notes: (Same as: Myrbetriq ER) Non-Formulary [facility] Dulcolax Laxative 2020-04-07 13:51:00 No Notes: (Same As: Dulcolax, Bisco-Lax) [facility] Clonazepam 2020-04-07 13:51:00 No 0.5 mg, 1 tab, Route: PO, Drug form: TAB, BID, Dosing Weight 99.2, kg, PRN Anxiety, Start date: 04/07/20 8:51:00 CDT, Duration: 30 day, Stop date: 05/07/20 8:50:00 CDT, 0 [facility] Metolazone 5 MG Oral Tablet 2020-04-07 13:51:00 No Notes: (Same as: Zaroxolyn) [facility] Acetaminophen 2020-04-07 13:11:00 No Notes: Do not exceed 4 gm/day. (Same as: Tylenol) [facility] Acetaminophen 325 MG / Hydrocodone Bitartrate 10 MG Oral Tab let 2020-04-07 13:11:00 No Notes: Do not exceed 4gm/day of acetaminophen. (Same as: [place] 325/10) [facility] Hydromorphone 2020-04-07 13:11:00 No Notes: Same as Dilaudid [facility] Ondansetron 2020-04-07 13:11:00 No Notes: (Same as: Zofran) MEDICATION WASTE Product Size: 4 mg Product Wasted: ___ mg [facility] Saline Flush 0.9% 2020-04-07 13:11:00 No Notes: Same as: BD Posiflush Sterile [facility] Methadone 2020-04-07 12:42:00 No Notes: (Sa me as: Dolophine) [facility] Lactated Ringers Injection IV (ANES) 1000 mL 2020-04-07 12:34:00 No Route: IV, Total Volume: 1,000, Start date: 04/07/20 7:34:00 CDT, Stop date: 04/07/20 8:34:00 CDT [facility] 24 HR mirabegron 50 MG Extended Release Tablet [Myrbetriq] 2020-04-04 19:26:00 Yes 50 mg = 1 tab, PO, Daily, # 90 tab, 0 Refill(s), Pharmacy: [id number] see BecerrilBrian 2020-04-03 18:38:00 No 10 mg, PO, Q PM, 0 Refill(s) [facility] gabapentin 300 MG Oral Capsule 2020-04-03 18:33:00 No 300 mg = 1 cap, PO, QPM, # 90 cap, 1 Refill(s) Jimmy Doyle clonazePAM 0.5 mg oral tablet 2020-04-03 18:33:00 No 0.5 mg = 1 tab, PO, BID, PRN anxiety, # 60 tab, 0 Refill(s) Geoff Vivek methenamine hippurate 2020-04-03 18:10:00 No 25 gm, PO, QAM & PM, 0 Refill(s) Geoff [facility] tamsulosin 0.4 mg oral capsule 2020-04-03 18:10:00 No 0.4 mg = 1 cap, PO, QAM & PM, # 90 cap, 0 Refill(s) Geoff Silverann baclofen 10 mg oral tablet 2020-04-03 18:10:00 No 10 mg = 1 tab, PO, QAM & PM, # 270 tab, 0 Refill(s) Giselemerlin ramsey Vivek Glucotrol 2019-11-11 16:00:00 No 2.5 mg, 0.5 tab, Route: PO, Drug form: TAB, Before Breakfast, Start date: 11/11/19 10:00:00 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, Duration: 30 day, Stop date: 12/11/19 7:30:00 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, 0 [facility] 200 ACTUAT Albuterol 0.09 MG/ACTUAT Metered Dose Inhaler [Pr oAir HFA] 2019-11-11 15:22:00 Yes 180 microgram = 2 puff, INHALATION, Daily, 0 Refill(s) [facility] Oxygen 2019-11-11 15:22:00 Yes Oxygen, 1 btl, MISC, Bedtime, Refill(s) 0 [facility] ProAir HFA 2019-11-11 15:22:00 Yes ProAir HFA, 1 - 2 puffs, PO, Daily, Refill(s) 0 [facility] Acetaminophen 300 MG / Codeine Phosphate 30 MG Oral Tablet 2019-11-11 15:22:00 Yes 1 tab, PO, Q6H, PRN Pain Score 7-10, # 30 tab, 0 Refill(s) [facility] Vivek 200 ACTUAT Albuterol 0.09 MG/ACTUAT Metered Dose Inhaler [Pr oAir HFA] 2019-11-11 15:00:00 No 180 microgram, 2 puff, Route: INHALATION, Drug Form: AERO/A, Dosing Weight 94.091, kg, Daily, Start date: 11/11/19 9:00:00 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, Duration: 30 day, Stop date: 12/10/19 9:00:00 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 [facility] ProAir HFA 2019-11-11 15:00:00 No ProAir HFA, 1 - 2 puffs, Route: PO, Daily, 11/11/19 9:00:00 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, Duration: 30 day, Stop date: 12/10/19 9:00:00 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 [facility] Allopurinol 2019-11-11 15:00:00 No Notes: ( Same as: Zyloprim) [facility] Aspirin 81 MG Enteric Coated Tablet 2019-11-11 15:00:00 No Notes: Do not crush or chew. (Same As: Ecotrin) [facility] Bumetanide 2019-11-11 15:00:00 No Notes: (S abelardo As: Bumex) [facility] Vitamin D3 1000 intl units oral tablet 2019-11-11 15:00:00 No Notes: Same as : Vitamin D3 [facility] Clobetasol Propionate 0.0005 MG/MG Topical Ointment 11-11 15:00:00 No Notes: (clobetasol propionate 0.05% 15 gm top OIN) (Same As: Temovate) [facility] clopidogrel 2019-11-11 15:00:00 No Notes: ( Same As: Plavix) [facility] Colchicine 2019-11-11 15:00:00 No 0.6 mg, 1 tab, Route: PO, Drug form: TAB, Daily, Dosing Weight 94.091, kg, Start date: 11/11/19 9:00:00 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, Duration: 30 day, Stop date: 12/10/19 9:00:00 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, 0 [facility] ferrous sulfate 2019-11-11 15:00:00 No Notes: Give with food. "Do Not Crush" [facility] Metolazone 5 MG Oral Tablet 2019-11-11 15:00:00 No Notes: (Same as: Zaroxolyn) [facility] 24 HR mirabegron 50 MG Extended Release Tablet [Myrbetriq] 2019-11-11 15:00:00 No 50 mg, 1 t ab, Route: PO, Drug form: ERTAB, Daily, Dosing Weight 94.091, kg, Start date: 11/11/19 9:00:00 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, Duration: 30 day, Stop date: 12/10/19 9:00:00 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 [facility] Prednisone 2019-11-11 15:00:00 No Notes: (Same as: PredniSONE) Take with food. [facility] Xarelto 2019-11-11 15:00:00 No Notes: (Same as: Xarelto) Administer with food [facility] Sertraline 2019-11-11 15:00:00 No Notes: (S abelardo as: Zoloft) [facility] Budesonide 0.25 MG/ML Inhalant Solution 2019-11-11 14:00:00 No Notes: (Same As: Pulmicort) [facility] glimepiride 2019-11-11 14:00:00 No 1 mg, 1 tab, Route: PO, Drug form: TAB, Breakfast, Dosing Weight 94.091, kg, Start date: 11/11/19 8:00:00 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, Duration: 30 day, Stop date: 12/10/19 8:00:00 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 [facility] Thyroxine 2019-11-11 12:30:00 No 100 microgram, 1 tab, Route: PO, Drug form: TAB, [id number], Dosing Weight 94.091, kg, Start date: 11/11/19 6:30:00 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, Duration: 30 day, Stop date: 12/10/19 6:30:00 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, 0 [facility] Triiodothyronine 2019-11-11 12:30:00 No Notes: (Same as: Cytomel) [facility] Dilaudid 2019-11-11 10:46:00 No Notes: Same as Dilaudid [facility] Fentanyl 2019-11-11 10:15:00 No 25 microgram, Route: IV, ONCE, Dosing Weight 94.091, kg, Start date: 11/11/19 4:15:00 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, Stop date: 11/11/19 4:15:00 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 [facility] Saline Flush 0.9% 2019-11-11 03:00:00 No Notes: (Same as: BD Posiflush) [facility] Oxygen 2019-11-11 03:00:00 No Oxygen, 1 btl, Route: MISC, Bedtime, 11/10/19 21:00:00 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, Duration: 30 day, Stop date: 12/09/19 21:00:00 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 [facility] Folic Acid 2019-11-11 03:00:00 No 0.4 mg, 1 tab, Route: PO, Drug form: TAB, BID, Dosing Weight 94.091, kg, Start date: 11/10/19 21:00:00 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, Duration: 30 day, Stop date: 12/10/19 9:00:00 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, 0 [facility] Pramipexole 2019-11-11 03:00:00 No 0.25 mg, 2 tab, Route: PO, Drug form: TAB, Bedtime, Dosing Weight 94.091, kg, Start date: 11/10/19 21:00:00 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, Duration: 30 day, Stop date: 12/09/19 21:00:00 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 [facility] ropinirole 2019-11-11 03:00:00 No 0.5 mg, Route: PO, Drug form: TAB, Bedtime, Dosing Weight 94.091, kg, Start date: 11/10/19 21:00:00 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, Duration: 30 day, Stop date: 12/09/19 21:00:00 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 [facility] Albuterol 0.83 MG/ML Inhalant Solution 2019-11-11 02:00:00 No Notes: SEE RT DOCUMENTATION (Same as: Proventil) [facility] latanoprost 2019-11-10 23:00:00 No Notes: Keep refrigerated. (Same as:Xalatan) Opened bottle may be stored at room temperature for 6 weeks [facility] 24 HR Metoprolol Tartrate 25 MG Extended Release Tablet [Top rol] 2019-11-10 23:00:00 No Notes: (Sa me as: Toprol XL) Do Not Crush 12.5 mg = 1/2 x 25 mg TAB [facility] Potassium Chloride 2019-11-10 23:00:00 No Notes: (Same as: K-Dur 20) "Do Not Crush" Give with food and full glass of water For patients unable to swallow tablet, dissolve in one half glass of water. Allow about 2 minutes for the tablets to disintegrate. Stir before giving to prepare slurry and administer. Please exclude Patient s with feeding tube less than 14 [place] (Dobhoff, J-tube etc) and pediatric and patients. [facility] Alprazolam 0.5 MG Oral Tablet 2019-11-10 21:14:00 No Notes: With food or milk (Same as: Xanax) [facility] binu Dulcolax Laxative 2019-11-10 21:14:00 No Notes: (Same As: Dulcolax, Bisco-Lax) [facility] acetaminophen-codeine #3 2019-11-10 21:13:00 No Notes: Do not exceed 4gm/day of acetaminophen. (Same as: Tylenol with Codeine # 3) [facility] Saline Flush 0.9% 2019-11-10 21:13:00 No Notes: (Same as: BD Posiflush) [facility] protamine (ANES) 2019-11-10 21:12:00 No Route: IV, Drug form: INJ, ONCE, Stop date: 11/10/19 15:12:00 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 glycopyrrolate (SURENDRAS) 2019-11-10 21:12:00 No Route: IV, Drug form: INJ, ONCE, Stop date: 11/10/19 15:12:00 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 [facility] neostigmine (SURENDRAS) 2019-11-10 21:12:00 No Route: IV, Drug form: INJ, ONCE, Stop date: 11/10/19 15:12:00 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 [facility] norepinephrine (SURENDRAS) 2019-11-10 20:39:00 No Route: IV, Drug form: INJ, ONCE, Stop date: 11/10/19 14:39:00 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 [facility] heparin (ANES) 2019-11-10 20:39:00 No Route: IV, Drug form: INJ, ONCE, Stop date: 11/10/19 14:39:00 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 propofol (ANES) 2019-11-10 20:34:00 No Route: IV, Drug form: INJ, ONCE, Stop date: 11/10/19 14:34:00 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 ceFAZolin (ANES) 2019-11-10 20:34:00 No Route: IV, Drug form: INJ, ONCE, Stop date: 11/10/19 14:34:00 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 lidocaine (ANES) 2019-11-10 20:18:00 No Route: IV, Drug form: INJ, ONCE, Stop date: 11/10/19 14:18:00 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 rocuronium (ANES) 2019-11-10 20:18:00 No Route: IV, Drug form: INJ, ONCE, Stop date: 11/10/19 14:18:00 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 [facility] fentaNYL (ANES) 2019-11-10 20:18:00 No Route: IV, Drug form: INJ, ONCE, Stop date: 11/10/19 14:18:00 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 [facility] Fentanyl 2019-11-10 19:56:00 No Notes: (Same as: Sublimaze) Preservative free. [facility] Hydromorphone 2019-11-10 19:56:00 No Notes: Same as Dilaudid [facility] Flumazenil 2019-11-10 19:56:00 No Notes: (S abelardo as: Romazicon) [facility] Naloxone 2019-11-10 19:56:00 No Notes: Same as Narcan [facility] Diphenhydramine 2019-11-10 19:56:00 No Notes: (Same as: Benadryl) [facility] Ondansetron 2019-11-10 19:56:00 No Notes: (Same as: Zofran) MEDICATION WASTE Product Size: 4 mg Product Wasted: ___ mg [facility] norepinephrine (FENG) 10 microgram 2019-11-10 19:51:00 No Route: IV, Drug form: INJ, Start date: 11/10/19 13:51:00 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, Stop date: 11/10/19 14:51:00 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 Geoff Doyle Sodium Chloride 0.9% IV (SURENDRA) 1000 mL 2019-11-10 19:29:00 No Route: IV, Total Volume: 1,000, Start date: 11/10/19 13:29:00 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, Stop date: 11/10/19 14:29:00 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 Geoff Doyle methenamine hippurate 1 g oral tablet 2019-11-10 17:17:00 Y es 1 gm = 1 tab, PO, BID, 0 Refill(s) Geoff Basil robert Metolazone 5 MG Oral Tablet 2019-11-10 17:17:00 Yes 5 mg = 1 tab, PO, Daily, 0 Refill(s) Geoff Doyle predniSONE 10 mg oral tablet 2019-11-10 17:17:00 Yes 10 mg = 1 tab, PO, Daily, 3 Refill(s) Geoff Vivek ferrous sulfate 325 mg oral enteric coated tablet 2019-11-10 17:17:00 Yes 325 mg = 1 tab, PO, Daily, 0 Refill(s) Geoff Doyle glimepiride 1 mg oral tablet 2019-11-10 17:17:00 Yes 1 mg = 1 tab, PO, Breakfast, 0 Refill(s) Geoff snell Albuterol 0.83 MG/ML Inhalant Solution 2019-11-10 17:04:00 Yes 2.5 mg = 3 mL, NEB, BID, am/pm, 0 Refill(s) Geoff Doyle Sodium Chloride 0.9% IV 1,000 mL 2019-11-10 16:52:00 No 1,000 ml, Rate: 50 ml/hr, Infuse over: 20 hr, Route: IV, Dosing Weight 94.091 kg, Total Volume: 1,000, Start date: 11/10/19 10:52:00 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, Duration: 30 day, Stop date: 12/10/19 10:51:00 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, 2.16, m2, 0 Memor ial Vivek Bacitracin 0.5 UNT/MG / Polymyxin B 10 UNT/MG Topical Ointme nt 2019-10-17 04:39:00 Yes 1 appl, TOP, QID, # 30 gm, 0 Refill(s) Geoff Valmeyer Albuterol 0.83 MG/ML Inhalant Solution 2019-10-17 02:10:00 No Notes: SEE RT DOCUMENTATION (Same as: Madhuri) Geoff Valmeyer Bacitracin 0.5 UNT/MG Topical Ointment 2019-10-17 00:58:00 No 1 appl, Route: TOP, ONCE, Drug form: OINT, Start date: 10/16/19 18:58:00 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, Stop date: 10/16/19 18:58:00 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, 0 Geoff Doyle 24 HR mirabegron 50 MG Extended Release Tablet [Myrbetriq] 2019-06-02 16:06:04 Yes 50 mg = 1 tab, PO, Daily, # 90 tab, 1 Refill(s), Pharmacy: [id number] Her cui Midodrine Hcl 2.5 Mg Tablet, 10 Mg Oral Midodrine Hcl 2.5 Mg Tablet, 10 Mg Oral 2019-05-28 00:00:00 2019-06-16 00:00:00 No 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 Juan Pablo Colbert albuterol (ACCUNEB) 2.5 mg /3 mL (0.083 %) nebulizer solutio n 2019-05-11 13:46:42 Yes 2.5mg Q.5D Take 2.5 mg by nebuliza tion 2 (two) times a day. Juan Pablo Colbert allopurinol (ZYLOPRIM) 300 MG tablet 2019-05-11 13:46:42 Ye s 300mg QD Take 300 mg by mouth daily. Juan Pablo abreu alclomethasone (ACLOVATE) 0.05 % cream 2019-05-11 13:46:42 Yes 1{application} QD Apply 1 application topically daily. Juan Pablo Colbert ALPRAZolam (XANAX) 0.5 MG tablet 2019-05-11 13:46:42 Yes .5mg QD Take 0.5 mg by mouth nightly as needed for anxiety. Juan Pablo Colbert budesonide (PULMICORT) 0.5 mg/2 mL nebulizer solution 2019-05-11 13:46:42 Yes .5mg QD Take 0.5 mg by nebulization once daily. Juan Pablo Colbert aspirin (ECOTRIN) 81 MG enteric coated tablet 2019-05-11 13:46:4 2 Yes 81mg QD Take 81 mg by mouth every evening. Juan Pablo Colbert clobetasol (TEMOVATE) 0.05 % cream 2019-05-11 13:46:42 Y es 1{application} QD Apply 1 application topically daily. Juan Pablo Colbert baclofen (LIORESAL) 10 MG tablet 2019-05-11 13:46:42 Yes 10mg [id number] Take 10 mg by mouth 3 (three) times a day. Juan Pablo Colbert sodium chloride 7 % nebulizer solution 2019-05-11 13:46:42 Yes 4mL Take 4 mL by nebulization as needed for cough. Juan Pablo Colbert BUMETanide (BUMEX) 2 MG tablet 2019-05-11 13:46:42 Yes 4mg Q.5D Take 4 mg by mouth 2 (two) times a day. Juan Pablo Colbert clopidogrel (PLAVIX) 75 mg tablet 2019-05-11 13:46:42 Yes 75mg QD Take 75 mg by mouth every evening. Juan Pablo sinhaodi colchicine 0.6 mg tablet 2019-05-11 13:46:42 Yes .6mg QD Take 0.6 mg by mouth every evening. Juan Pablo Colbert hydromorPHONE (DILAUDID) 8 MG tablet 2019-05-11 13:46:42 Ye s 8mg Q6H Take 8 mg by mouth every 6 (six) hours as needed for moderate pain. Juan Pablo Colbert secukinumab (COSENTYX) 150 mg/mL syringe 2019-05-11 13:46:42 Yes Q30D Inject under the skin every 30 (thirty) days. Juan Pablo Colbert latanoprost (XALATAN) 0.005 % ophthalmic solution 2019-05-11 13:46:42 Yes 1[drp] QD Administer 1 drop to both eyes nightly. Juan Pablo Colbert sodium chloride 0.9% parenteral solution 2019-05-11 13:46:42 Yes by intrathecal route continuously. Med: Dilaudid and Bupivacaine Juan Pablo Colbert levothyroxine (SYNTHROID, LEVOXYL) 100 mcg tablet 2019-05-11 13:46:42 Yes 100ug QD Take 100 mcg by mouth daily. Juan Pablo Colbert liothyronine (CYTOMEL) 5 MCG tablet 2019-05-11 13:46:42 Yes 5ug QD Take 5 mcg by mouth daily. Juan Pablo Colbert methenamine (HIPREX) 1 gram tablet 2019-05-11 13:46:42 Yes 1g QD Take 1 g by mouth daily. Juan Pablo Colbert mirabegron (MYRBETIQ) 50 mg tablet extended release 24 hr 2019-05-11 13:46:42 Yes 50mg QD Take 50 mg by mouth every evenin g. Juan Pablo Colbert potassium chloride (K-DUR) 20 MEQ CR tablet 2019-05-11 13:46:42 Yes 20meq Q.5D Take 20 mEq by mouth 2 (two) times a day. Juan Pablo Colbert pramipexole (MIRAPEX) 0.25 MG tablet 2019-05-11 13:46:42 Ye s .25mg QD Take 0.25 mg by mouth nightly. Takes 2-3 hours before bed Juan Pablo Colbert rivaroxaban (XARELTO) 15 mg tablet 2019-05-11 13:46:42 Yes 15mg QD Take 15 mg by mouth daily. Juan Pablo Colbert rOPINIRole (REQUIP) 0.5 MG tablet 2019-05-11 13:46:42 Yes .5mg QD Take 0.5 mg by mouth nightly. Juan Pablo diaz sertraline (ZOLOFT) 50 MG tablet 2019-05-11 13:46:42 Yes 50mg QD Take 50 mg by mouth every evening. Juan Pablo abreu testosterone cypionate (DEPOTESTOTERONE CYPIONATE) 200 mg/mL injection 2019-05-11 13:46:42 Yes 200mg Q14D Inject 200 mg into the shoulder, thigh, or buttocks every 14 (fourteen) days. Becky Colbert DULCOLAX, BISACODYL, ORAL 2019-05-11 13:46:42 Yes 2{tbl} QD Take 2 tablets by mouth every evening. Juan Pablo Colbert folic acid (FOLVITE) 400 MCG tablet 2019-05-11 13:46:42 Yes 400ug Q.5D Take 400 mcg by mouth 2 (two) times a day. Juan Pablo Colbert cyanocobalamin, vitamin B-12, (VITAMIN B-12 ORAL) 2019-05-11 13:46:42 Yes [id number] Q7D Take 10,000 mcg by mouth once a week. Juan Pablo Colbert cholecalciferol, vitamin D3, (VITAMIN D3) 2,000 unit capsule capsule 2019-05-11 13:46:42 Yes 6000U QD Take 6,000 U nits by mouth every evening. Juan Pablo Colbert psyllium husk (WAL-MUCIL FIBER ORAL) 2019-05-11 13:46:42 Ye s QD Take by mouth every morning. 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 1 Q24h [facility] Metolazone 5 Mg Tablet, 5 Mg Oral Metolazone 5 Mg Tablet, 5 Mg Oral 2019-05-04 00:00:00 2019-06-16 00:00:00 No 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 5 Daily [facility] allopurinol 300 mg oral tablet 2019-04-19 21:01:00 Yes 300 mg = 1 tab, PO, Daily, # 90 tab, 1 Refill(s) Me wanda Doyle methenamine hippurate 2019-04-19 21:01:00 Yes 1 gm, PO, Daily, 0 Refill(s) Geoff Doyle Dulcolax Laxative 2019-04-19 21:01:00 Yes = 1 supp, MT, Daily, PRN constipation, # 5 supp, 0 Refill(s) Jimmy rial Valmeyer Colchicine 2019-04-19 21:01:00 Yes 0 .6 mg, PO, Daily, 0 Refill(s) Geoff Doyle Sucralfate (Carafate) 1 Gm Tablet, 1 Gm Oral Sucralfat e (Carafate) 1 Gm Tablet, 1 Gm Oral 2019-02-15 00:00:00 2019-08-05 00:00:00 No 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 1 Before Meals [facility] Fosfomycin 33.3 MG/ML Oral Suspension [Monurol] 2018-12-03 14:58 :00 Yes = 1 Pack, PO, ONCE, # 3 gm, 0 Refill(s), Pharmacy: [facility] [id number] Geoff Doyle Hydrochlorothiazide 50 MG / Spironolactone 50 MG Oral Tablet [Aldactazide] 2018-11-30 20:00:00 Yes 1 tab, PO, PRN, 0 Refill(s) Geoff Doyle baclofen 10 mg oral tablet 2018-11-30 20:00:00 Yes 10 mg = 1 tab, PO, TID, # 90 tab, 0 Refill(s) Geoff Doyle Budesonide 0.25 MG/ML Inhalant Solution 2018-11-30 20:00:00 Yes 0.5 mg = 2 mL, NEB, Daily, # 60 ea, 11 Refill(s) Geoff Doyle carisoprodol 350 mg oral tablet 2018-11-30 20:00:00 Yes 350 mg = 1 tab, PO, TID, PRN Muscle Spasms, # 42 tab, 0 Refill(s) Geoff Doyle Clobetasol Propionate 0.0005 MG/MG Topical Ointment 11-30 20:00:00 Yes TOP, Daily, 0 Refill(s) Geoff Doyle clopidogrel 75 mg oral tablet 2018-11-30 20:00:00 Yes 75 mg = 1 tab, PO, Daily, # 30 tab, 0 Refill(s) Maricruz Feng 1 ML secukinumab 150 MG/ML Prefilled Syringe [Cosentyx] 2018-11-30 20:00:00 Yes SUB-Q, q4wk, 0 Refill(s) Geoff Doyle Ferocon oral capsule 2018-11-30 20:00:00 Yes PO, Daily, 0 Refill(s) Geoff Doyle furosemide 80 mg oral tablet 2018-11-30 20:00:00 Yes 80 mg = 1 tab, PO, Daily, # 30 tab, 0 Refill(s) Zena Doyle hydromorphone 8 mg oral tablet 2018-11-30 20:00:00 Yes 8 mg = 1 tab, PO, BID, PRN Pain, 0 Refill(s) Geoff Doyle Sodium Chloride 1.2 MEQ/ML Inhalant Solution [Hyper-Lamine] 2018-11-30 20:00:00 Yes PRN, 0 Refill(s) [facility] Vivek Oxygen 2018-11-30 20:00:00 Yes 1 btl, MISC, Bedtime, # 1 btl, 0 Refill(s) [facility] pantoprazole 40 mg oral enteric coated tablet 2018-11-30 20:00:0 0 Yes 40 mg = 1 tab, PO, Daily, # 30 tab, 0 Refill(s) [facility] Potassium Chloride 2018-11-30 20:00:00 Yes 20 mEq, BID, 0 Refill(s) [facility] pramipexole 0.125 mg oral tablet 2018-11-30 20:00:00 Yes 0.125 mg = 1 tab, PO, Bedtime, # 30 tab, 1 Refill(s) Geoff Doyle 200 ACTUAT Albuterol 0.09 MG/ACTUAT Metered Dose Inhaler [Pr oAir HFA] 2018-11-30 20:00:00 Yes 2 puff, INHALATION , Daily, 0 Refill(s) [facility] non-formulary 2018-11-30 20:00:00 Yes RAPATHA INJECTION 140MG Q2WEEK, Refill(s) 0 [facility] rOPINIRole 0.5 mg oral tablet 2018-11-30 20:00:00 Yes 0.5 mg = 1 tab, PO, Bedtime, # 30 tab, 1 Refill(s) [facility] sertraline 50 mg oral tablet 2018-11-30 20:00:00 Yes 50 mg = 1 tab, PO, Daily, # 30 tab, 0 Refill(s) Zena Doyle rivaroxaban 15 MG Oral Tablet [Xarelto] 2018-11-30 20:00:00 Yes 15 mg = 1 tab, PO, Daily, # 90 tab, 3 Refill(s) [facility] Aspirin 81 MG Enteric Coated Tablet 2018-11-30 20:00:00 Yes 81 mg = 1 tab, PO, Daily, # 90 tab, 3 Refill(s) [facility] Folic Acid 2018-11-30 20:00:00 Yes 400 MCG, BID, 0 Refill(s) [facility] Mucus Relief DM 2018-11-30 20:00:00 Yes PO, BID, 0 Refill(s) [facility] Vitamin B12 Methylcobalamin 2018-11-30 20:00:00 Yes SL, qWeek, 0 Refill(s) [facility] Vitamin D3 2000 intl units oral capsule 2018-11-30 20:00:00 Yes 2,000 IntlUnit = 1 cap, PO, Daily, # 100 cap, 3 Refill(s) [facility] 24 HR mirabegron 50 MG Extended Release Tablet [Myrbetriq] 2018-11-05 15:12:29 Yes See Instru ctions, TAKE 1 TABLET BY MOUTH EVERY DAY, # 90 tab, 0 Refill(s), Pharmacy: [facility], please have patient call for appt prior to next refill 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 1 Twice A Day [facility] Metoprolol Tartrate (Lopressor) 25 Mg Tab Metoprolol T artrate (Lopressor) 25 Mg Tab 2017-06-11 00:00:00 Yes 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 25 Every 12 Hours [facility] Furosemide 40 Mg Tablet, 80 Mg Oral Furosemide 40 Mg Tablet, 80 Mg Oral 2017-06-11 00:00:00 2019-01-09 00:00:00 No 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 80 Bid@18 [facility] Azithromycin (Z-Asad) 250 Mg Tablet, 500 Mg Oral Azithr omycin (Z-Asad) 250 Mg Tablet, 500 Mg Oral 2017-06-11 00:00:00 2018-09-13 00:00:00 No 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 500 Daily [facility] Docusate Sodium (Colace) 100 Mg Capsule, 100 Mg Oral D ocusate Sodium (Colace) 100 Mg Capsule, 100 Mg Oral 2017-06-11 00:00:00 2018-09-13 00:00:00 Val Mckeon 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 100 Three Times A Day [facility] Polyethylene Glycol 3350 (Miralax) 17 Gm Powd.pack, 17 Gm Oral Polyethylene Glycol 3350 (Miralax) 17 Gm Powd.pack, 17 Gm Oral 2017-06-11 00:00:00 2017 00:00:00 Val Mckeon 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 63 Mg/3 Ml Vial.neb Yes .83 Twice A Day [facility] Albuterol Sulfate (Proair Hfa Inhaler*) 8.5 Gm Inh Alb uterol Sulfate (Proair Hfa Inhaler*) 8.5 Gm Inh Yes 2 Daily [facility] Alcomethasone Dipror Alcomethasone Dipror Yes .05 Daily [facility] Allopurinol 300 Mg Tablet Allopurinol 300 Mg Tablet Yes 300 Bedtime [facility] Alprazolam 0.5 Mg Tablet Alprazolam 0.5 Mg Tablet Yes .5 As Needed [facility] Aspirin (Aspir 81) 81 Mg Tablet. Aspirin (Aspir 81) 81 Mg Tablet. Yes 1 Daily [facility] Bisacodyl (Dulcolax) 5 Mg Tablet. Bisacodyl (Dulcolax) 5 Mg Tablet. Yes 5 Daily [facility] Budesonide 0.5 Mg/2 Ml Ampul.neb Budesonide 0.5 Mg/2 Ml Ampul.neb Yes 2 Twice A Day [facility] Bumetanide 1 Mg Tablet Bumetanide 1 Mg Tablet Yes 1 Twice A Day [facility] Cholecalciferol (Vitamin D3) (Vitamin D3) 1,000 Unit C apsule Cholecalciferol (Vitamin D3) (Vitamin D3) 1,000 Unit Capsule Yes 1000 Daily [facility] Clobetasol Propionate 1 Ea/15 Gm Cr Clobetasol Propionate 1 Ea/15 Gm Cr Yes 1 Daily [facility] Clonazepam 0.5 Mg Tablet Clonazepam 0.5 Mg Tablet Yes .25 Bedtime as needed for Sleep [facility] Clopidogrel Bisulfate (Clopidogrel) 75 Mg Tablet Clopi dogrel Bisulfate (Clopidogrel) 75 Mg Tablet Yes 75 Daily [facility] Colchicine (Colcrys) 0.6 Mg Tablet Colchicine (Colcrys) 0.6 Mg Tablet Yes .6 Daily as needed for Mild Pain (1-3) Or Fever>10 0.8 [facility] Cyanocobalamin (Vitamin B-12) (Vitamin B-12) 1,000 Mcg Tab.subl Cyanocobalamin (Vitamin B-12) (Vitamin B-12) 1,000 Mcg Tab.subl Yes 1 000 .weekly [facility] Folic Acid 1 Mg Tablet Folic Acid 1 Mg Tablet Yes 400 Twice A Day [facility] Guaifenesin (Mucus Relief) 400 Mg Tablet Guaifenesin ( Mucus Relief) 400 Mg Tablet Yes 1 Twice A Day as needed for Nasal Congestion [facility] Hydromorphone Hcl 8 Mg Tablet Hydromorphone Hcl 8 Mg Tablet Yes 8 Daily as needed for Severe Pain (7-10) [facility] Hydromorphone/Bupiv/0.9NACL/Pf (Hydromor -Bupiva 10 Mcg-0.0625%) 100 Ml Pump.resvr Hydromorphone/Bupiv/0.9NACL/Pf (Hydromor -Bupiva 10 Mcg-0.0625%) 100 Ml Pump.resvr Yes 1 Daily [facility] Latanoprost 2.5 Ml Drops Latanoprost 2.5 Ml Drops Yes 1 Bedtime [facility] Levofloxacin (Levaquin) 500 Mg Tablet Levofloxacin (Levaquin) 500 M g Tablet Yes 750 Daily [facility] Levothyroxine Sodium 50 Mcg Tablet Levothyroxine Sodium 50 Mcg Tablet Yes 100 Daily [facility] Liothyronine Sodium 5 Mcg Tablet Liothyronine Sodium 5 Mcg Tablet Yes 5 Every Morning [facility] Methenamine Hippurate 1 Gm Tablet Methenamine Hippurate 1 Gm Tablet Yes 1 Daily [facility] Metolazone 5 Mg Tablet Metolazone 5 Mg Tablet Yes 5 Daily as needed for Elevated Blood Pressure [facility] Mirabegron (Myrbetriq) 50 Mg Tab.er.24h Mirabegron (Myrbetri q) 50 Mg Tab.er.24h Yes 50 Daily [facility] Potassium Chloride 20 Meq Tab.er.prt Potassium Chloride 20 Meq Tab. er.prt Yes 20 Twice A Day [facility] Pramipexole Di-Hcl (Pramipexole Dihydrochloride) 0.25 Mg Tablet Pramipexole Di- Hcl (Pramipexole Dihydrochloride) 0.25 Mg Tablet Yes . 25 Bedtime [facility] Prednisone 20 Mg Tab Prednisone 20 Mg Tab Yes 20 Daily [facility] Psyllium Husk (Wal-Mucil) 0.52 Gm Capsule Psyllium Hus k (Wal-Mucil) 0.52 Gm Capsule Yes 1 Daily [facility] Rivaroxaban (Xarelto) 15 Mg Tablet Rivaroxaban (Xarelto) 15 Mg Tablet Yes 15 Daily [facility] Ropinirole Hcl 0.25 Mg Tablet Ropinirole Hcl 0.25 Mg Tablet Yes .5 Bedtime [facility] Sertraline Hcl 50 Mg Tablet Sertraline Hcl 50 Mg Tablet Yes 50 Bedtime [facility] Sodium Chloride For Inhalation (Hyper-Lamine) 4 Ml Vial.n eb Sodium Chloride For Inhalation (Hyper-Lamine) 4 Ml Vial.neb Yes 7 A s Needed [facility] Sucralfate (Carafate) 1 Gm/10 Ml Oral.susp Sucralfate (Carafate) 1 Gm/10 Ml Oral.susp Yes 1 Daily [facility] Testosterone Cypionate 200 Mg/1 Ml Vial Testosterone Cypiona te 200 Mg/1 Ml Vial Yes 200 [facility] Bumetanide 1 Mg Tablet, 2 Mg Oral Bumetanide 1 Mg Tablet, 2 Mg O ral 2019-08-12 00:00:00 No 2 Twice A Day [facility] Aclovate , 1 Spr Nasal Aclovate , 1 Spr Nasal 2019-08-05 00:00:00 No 1 Daily [facility] Alcometasone , 0.05 Alcometasone , 0.05 2019-08-05 00:00:00 No .05 Daily [facility] Cosentyx 150 Mg, 150 Mg Intramusc Cosentyx 150 Mg, 150 Mg Intram usc 2019-08-05 00:00:00 No 150 .monthly [facility] Potassium Chloride 20 Meq Tab.er.prt, 20 Meq Oral Pota ssium Chloride 20 Meq Tab.er.prt, 20 Meq Oral 2019-06-16 00:00:00 No 20 Twice A Day [facility] Baclofen 10 Mg Tablet, 10 Mg Oral Baclofen 10 Mg Tablet, 10 Mg O ral 2019-05-28 00:00:00 No 10 Three Times A Day [facility] Bumetanide 2 Mg Tablet, 2 Mg Oral Bumetanide 2 Mg Tablet, 2 Mg O ral 2019-05-04 00:00:00 No 2 Twice A Day I [facility] Carisoprodol (Soma) 350 Mg Tablet, 350 Mg Oral Carisop rodol (Soma) 350 Mg Tablet, 350 Mg Oral 2019-04-23 00:00:00 No 350 Daily as needed for Pain [facility] Cholecalciferol (Vitamin D3) (Vitamin D3) 2,000 Unit C apsule, 6000 Units Oral Cholecalciferol (Vitamin D3) (Vitamin D3) 2,000 Unit Capsule, 6000 Units Oral 2019-04-23 00:00:00 No 6000 Bedtime [facility] Cosentyx , 150 Mg Cosentyx , 150 Mg 2019-04-23 00:00:00 No 150 [facility] Folic Acid 1 Mg Tablet, 400 Mcg Oral Folic Acid 1 Mg Tablet, 400 Mcg Oral 2019-04-23 00:00:00 No 400 Twice A Day [facility] Guaifenesin (Mucus Relief) 400 Mg Tablet, 400 Mg Oral Guaifenesin (Mucus Relief) 400 Mg Tablet, 400 Mg Oral 2019-04-23 00:00:00 No 400 Twice A Day [facility] Hydromorphone Hcl 2 Mg Tablet, 8 Mg Oral Hydromorphone Hcl 2 Mg Tablet, 8 Mg Oral 2019-04-23 00:00:00 No 8 As Needed as neede d for Prn [facility] Metolazone 5 Mg Tablet, 5 Mg Oral Metolazone 5 Mg Tablet, 5 Mg O ral 2019-04-23 00:00:00 No 5 [facility] Pantoprazole Sodium (Protonix) 40 Mg Tablet.dr, 40 Mg Oral Pantoprazole Sodium (Protonix) 40 Mg Tablet.dr, 40 Mg Oral 2019-04-23 00:00:00 No 40 Bedtime [facility] Sodium Chloride For Inhalation (Hyper-Lamine) 4 Ml Vial.n eb, 7 % Inhalation Sodium Chloride For Inhalation (Hyper-Lamine) 4 Ml Vial.neb, 7 % Inhalation 2019-04-23 00:00:00 No 7 Daily as needed for Nasal Conge stion [facility] Spironolact/Hydrochlorothiazid (Aldactaz nidia 50-50 Tablet) 1 Each Tablet, 1 Tab Oral Spironolact/Hydrochlorothiazid (Aldactaz nidia 50-50 Tablet) 1 Each Tablet, 1 Tab Oral 2019-04-23 00:00:00 No 1 Daily [facility] Vitamin B12 , 54913 Mcg Oral Vitamin B12 , 41799 Mcg Oral 2019-04-23 00:00:00 No 25895 Use As Directed [facility] Clindamycin Hcl 300 Mg Capsule, 300 Mg Oral Clindamyci n Hcl 300 Mg Capsule, 300 Mg Oral 2019-02-15 00:00:00 No 300 Three Times A Da y [facility] Potassium Chloride (K-Dur) 20 Meq Tab.er.prt, 20 Meq O ral Potassium Chloride (K- Dur) 20 Meq Tab.er.prt, 20 Meq Oral 2019-01-09 00:00:00 No 20 Every 12 Hours [facility] Prednisone 10 Mg Tab, 30 Mg Oral Prednisone 10 Mg Tab, 30 Mg Ora l 2018-12-30 00:00:00 No 30 Daily [facility] Prednisone 20 Mg Tab, 20 Mg Oral Prednisone 20 Mg Tab, 20 Mg Ora l 2018-12-30 00:00:00 No 20 Daily [facility] Prednisone 10 Mg Tab, 10 Mg Oral Prednisone 10 Mg Tab, 10 Mg Ora l 2018-12-30 00:00:00 No 10 Daily [facility] Albuterol Sulfate (Proair Hfa Inhaler*) 8.5 Gm Inh, 3 Inh Albuterol Sulfate (Proair Hfa Inhaler*) 8.5 Gm Inh, 3 Inh 2018-12-11 00:00:00 No 3 [facility] Alclometasone Dipropionate 15 Gm Cream..g., 1 Applic T opically Alclometasone Dipropionate 15 Gm Cream..g., 1 Applic Topically 2018-12-11 00:00:00 N o 1 Daily [facility] Albuterol Sulfate (Proair Hfa Inhaler*) 8.5 Gm Inh, 2 Inh Inhalation Albuterol Sulfate (Proair Hfa Inhaler*) 8.5 Gm Inh, 2 Inh Inhalation 2018-12-07 00:00:00 No 2 Daily [facility] Clobetasol Propionate 1 Ea/15 Gm Cr, 1 Applic Topicall y Clobetasol Propionate 1 Ea/15 Gm Cr, 1 Applic Topically 2018-12-07 00:00:00 No 1 Daily [facility] Mirabegron (Myrbetriq) 50 Mg Tab.er.24h, 50 Mg Oral Mi rabegron (Myrbetriq) 50 Mg Tab.er.24h, 50 Mg Oral 2018-12-07 00:00:00 No 50 Every Morning [facility] Rapatha Injection , 140 Mg Intramusc Rapatha Injection , 140 Mg Intramusc 2018-12-07 00:00:00 No 140 Use As Directed [facility] Spironolactone (Aldactone) 50 Mg Tablet, 50 Mg Oral Sp ironolactone (Aldactone) 50 Mg Tablet, 50 Mg Oral 2018-12-07 00:00:00 No 50 As Needed [facility] Folic Acid 1 Mg Tablet, 1 Mg Oral Folic Acid 1 Mg Tablet, 1 Mg O ral 2018-11-05 00:00:00 No 1 Twice A Day [facility] Warfarin Sodium 3 Mg Tablet, 3 Mg Oral Warfarin Sodium 3 Mg Tabl et, 3 Mg Oral 2018-11-05 00:00:00 No 3 Daily [facility] Albuterol Sulf (Proventil 0.083% Neb) 3 Ml Nebu, 3 Ml Inhalation Albuterol Sulf (Proventil 0.083% Neb) 3 Ml Nebu, 3 Ml Inhalation 2018-09-13 00:00:00 No 3 Every 12 Hours [facility] Albuterol Sulfate (Proair Hfa Inhaler*) 8.5 Gm Inh, 1 Inh Inhalation Albuterol Sulfate (Proair Hfa Inhaler*) 8.5 Gm Inh, 1 Inh Inhalation 2018-09-13 00:00:00 No 1 Three Times A Day [facility] Albuterol Sulfate (Proair Hfa Inhaler*) 8.5 Gm Inh, Al buterol Sulfate (Proair Hfa Inhaler*) 8.5 Gm Inh, 2018-09-13 00:00:00 No [facility] Cyanocobalamin (Vitamin B-12) (Vitamin B-12) 2,000 Mcg Tablet.er, 2000 Mcg Cyanocobalamin (Vitamin B-12) (Vitamin B-12) 2,000 Mcg Tablet.er, 2000 Mcg 2018-09-13 00:00:00 No 2000 Weekly [facility] Duloxetine Hcl (Cymbalta) 30 Mg Capsule., 60 Mg Oral Duloxetine Hcl (Cymbalta) 30 Mg Capsule.dr, 60 Mg Oral 2018-09-13 00:00:00 No 60 Bedtime [facility] Fe Fumarate/Vit C/B12-If/Fa (Ferocon Capsule) 1 Each C apsule, 1 Cap Oral Fe Fumarate/Vit C/B12-If/Fa (Ferocon Capsule) 1 Each Capsule, 1 Cap Oral 2018-09-13 00:00:00 No 1 Daily [facility] Formoterol Fumarate (Perforomist) 20 Mcg/2 Ml Vial.neb , 20 Mcg Inhalation Formoterol Fumarate (Perforomist) 20 Mcg/2 Ml Vial.neb, 20 Mcg Inhalation 2018-09-13 00:00:00 No 20 Daily [facility] Liraglutide (Victoza 3-Asad) 0.6 Mg/0.1 Ml Pen.injctr, 1.8 Mg Injection Liraglutide (Victoza 3-Asad) 0.6 Mg/0.1 Ml Pen.injctr, 1.8 Mg Injection 2018-09-13 00:00:00 No 1.8 Every Morning [facility] Cedar-3/Dha/Epa/Fish Oil (Fish Oil Cedar -3 Softgel) 1 Each Capsule., 1 Tab Oral Cedar-3/Dha/Epa/Fish Oil (Fish Oil Cedar -3 Softgel) 1 Each Capsule., 1 Tab Oral 2018-09-13 00:00:00 No 1 Twice A Day [facility] Repaglinide (Prandin) 1 Mg Tab, 0.5 Tab Oral Repaglini de (Prandin) 1 Mg Tab, 0.5 Tab Oral 2018-09-13 00:00:00 No .5 As Needed [facility] Tamsulosin Hcl 0.4 Mg Cap.er.24h, 0.8 Mg Oral Tamsulos in Hcl 0.4 Mg Cap.er.24h, 0.8 Mg Oral 2018-09-13 00:00:00 No .8 Every 12 Yahir rs [facility] Testoterone , 1 Ml Testoterone , 1 Ml 2018-09-13 00:00:00 No 1 [facility] Furosemide 40 Mg Tablet, 80 Mg Oral Furosemide 40 Mg Tablet, 80 Mg Oral 2017-06-11 00:00:00 No 80 Daily [facility] Metoprolol Tartrate 25 Mg Tablet, 12.5 Mg Oral Metopro lol Tartrate 25 Mg Tablet, 12.5 Mg Oral 2017-06-11 00:00:00 No 12.5 Twice A Da y [facility] Warfarin Sodium (Coumadin) 5 Mg Tablet, 3 Mg Oral Warf rory Sodium (Coumadin) 5 Mg Tablet, 3 Mg Oral 2017-06-11 00:00:00 No 3 Tod ay At 5:00PM [facility] Furosemide (Lasix) 40 Mg Tablet, 2 Mg Oral Furosemide (Lasix) 40 Mg Tablet, 2 Mg Oral 2017-06-04 00:00:00 No 2 Twice A Day [facility] Furosemide (Lasix) 40 Mg Tablet, 80 Mg Oral Furosemide (Lasix) 40 Mg Tablet, 80 Mg Oral 2017-06-04 00:00:00 No 80 Twice A Day [facility] Ibuprofen 400 Mg Tablet, 600 Mg Oral Ibuprofen 400 Mg Tablet, 60 0 Mg Oral 2017-06-04 00:00:00 No 600 Every 6 Hours as nee ded for Pain [facility] Mucas , 400 Mcg Oral Mucas , 400 Mcg Oral 2017-06-04 00:00:00 No 400 Twice A Day [facility] Servent Disk , 50 Mcg Inhalation Servent Disk , 50 Mcg Inhalatio n 2017-06-04 00:00:00 No 50 Twice A Day [facility] Warfarin Sodium (Coumadin) 5 Mg Tablet, 3 Mg Oral Warf rory Sodium (Coumadin) 5 Mg Tablet, 3 Mg Oral 2017-06-04 00:00:00 No 3 Tod ay At 5:00PM [facility] Warfarin Sodium (Coumadin) 2 Mg Tablet, 2 Mg Oral Warf rory Sodium (Coumadin) 2 Mg Tablet, 2 Mg Oral 2017-06-04 00:00:00 No 2 Laquita ly [facility] Warfarin Sodium (Coumadin) 2.5 Mg Tablet, 2.5 Mg Oral Warfarin Sodium (Coumadin) 2.5 Mg Tablet, 2.5 Mg Oral 2017-06-04 00:00:00 No 2.5 Daily [facility] Warfarin Sodium (Coumadin) 5 Mg Tablet, 5 Mg Oral Warf rory Sodium (Coumadin) 5 Mg Tablet, 5 Mg Oral 2017-06-04 00:00:00 No 5 Tod ay At 5:00PM [facility] Aspirin 325 Mg Tablet, 81 Mg Oral Aspirin 325 Mg Tablet, 81 Mg O ral 2017-05-07 00:00:00 No 81 Daily [facility] Bupivacaine Hcl (Marcaine) 2.5 Mg/1 Ml Vial, 1.143 Mg Bupivacaine Hcl (Marcaine) 2.5 Mg/1 Ml Vial, 1.143 Mg 2017-05-07 00:00:00 No 1.143 Daily [facility] Carisoprodol 350 Mg Tablet, 350 Mg Oral Carisoprodol 350 Mg Tablet, 350 Mg Oral 2017-05-07 00:00:00 No 350 as needed [facility] Fenofibric Acid (Choline) (Trilipix) 135 Mg Capsule.dr , 135 Mg Oral Fenofibric Acid (Choline) (Trilipix) 135 Mg Capsule.dr, 135 Mg Oral 201 05-02-12 00:00:00 No 135 Daily [facility] Hydrocodone Bit/Acetaminophen (Hydrocodo ne-Apap 10-325 Mg Tab) 1 Each Tablet, 1 Each Oral Hydrocodone Bit/Acetaminophen (Hydrocodo ne-Apap 10-325 Mg Tab) 1 Each Tablet, 1 Each Oral 2017-05-07 00:00:00 No 1 as n eeded [facility] Hydrocodone Bit/Acetaminophen (Hydrocodo n-Acetaminophn 10-325) 1 Each Tablet, 10 Mg Oral Hydrocodone Bit/Acetaminophen (Hydrocodo n-Acetaminophn 10-325) 1 Each Tablet, 10 Mg Oral 2017-05-07 00:00:00 No 10 As Ne eded [facility] Latanoprost 2.5 Ml Drops, 2.5 Ml Ophthalmic Latanopros t 2.5 Ml Drops, 2.5 Ml Ophthalmic 2017-05-07 00:00:00 No 2.5 Daily [facility] Linagliptin (Tradjenta) 5 Mg Tablet, 5 Mg Oral Linagli ptin (Tradjenta) 5 Mg Tablet, 5 Mg Oral 2017-05-07 00:00:00 No 5 Daily [facility] Morphine Pump , 12.7 Mg Morphine Pump , 12.7 Mg 2017-05-07 00:00 :00 No 12.7 Daily [facility] Multivitamin (Multivitamins) 1 Each Tab.chew, Oral M ultivitamin (Multivitamins) 1 Each Tab.chew, Oral 2017-05-07 00:00:00 No Daily [facility] Omeprazole 40 Mg Capsule., 40 Mg Oral Omeprazole 40 Mg Cap gely., 40 Mg Oral 2017-05-07 00:00:00 No 40 Daily [facility] Polyethylene Glycol 3350 (Clearlax) 17 Gm Powd.pack, P olyethylene Glycol 3350 (Clearlax) 17 Gm Powd.pack, 2017-05-07 00:00:00 No As Needed [facility] Testosterone (Testopel) 75 Mg Pellet.ea., 75 Mg Testos terone (Testopel) 75 Mg Pellet.ea., 75 Mg 2017-05-07 00:00:00 No 75 [facility] Torsemide 20 Mg Tablet, 20 Mg Oral Torsemide 20 Mg Tablet, 20 Mg Oral 2017-05-07 00:00:00 No 20 Twice A Day [facility] Zolpidem Tartrate (Ambien) 10 Mg Tablet, 10 Mg Oral Zo lpidem Tartrate (Ambien) 10 Mg Tablet, 10 Mg Oral 2017-05-07 00:00:00 No 10 Bedtime [facility] Axiron , 30 Mg Axiron , 30 Mg 2013-09-01 00:00:00 No 30 Daily [facility] Caltrate +D , Oral Caltrate +D , Oral 2013-09-01 00:00:00 No Twice A Day [facility] Furosemide 40 Mg Tablet, 40 Mg Oral Furosemide 40 Mg Tablet, 40 Mg Oral 2013-09-01 00:00:00 No 40 Daily [facility] Marcaine , Marcaine , 2013-09-01 00:00:00 No Laquita ly [facility] Morphine Pump , Morphine Pump , 2013-09-01 00:00:00 No Daily [facility] Zolpidem Tartrate (Ambien Cr) 12.5 Mg Tab.mphase, 12.5 Mg Oral Zolpidem Tartrate (Ambien Cr) 12.5 Mg Tab.mphase, 12.5 Mg Oral 2013-09-01 00:00:00 No 12.5 Daily [facility] Vital Signs Vital Name Observation Time Observation Value Comments Source Temperature Oral (F) 2020-04-20 16:14:00 98 F [facility] Heart Rate 2020-04-20 16:14:00 [facility] Respitory Rate 2020-04-20 16:14:00 [facility] Systolic (mm Hg) 2020-04-20 16:14:00 [facility] Diastolic (mm Hg) 2020-04-20 16:14:00 [facility] Temperature Oral (F) 2020-04-20 12:54:00 97.9 F [facility] Heart Rate 2020-04-20 12:54:00 [facility] Systolic (mm Hg) 2020-04-20 12:54:00 [facility] Diastolic (mm Hg) 2020-04-20 12:54:00 [facility] Respitory Rate 2020-04-20 12:54:00 [facility] Temperature Oral (F) 2020-04-20 10:02:00 98.0 F [facility] Heart Rate 2020-04-20 10:02:00 [facility] Systolic (mm Hg) 2020-04-20 10:02:00 [facility] Diastolic (mm Hg) 2020-04-20 10:02:00 [facility] Respitory Rate 2020-04-20 00:22:00 [facility] Height 2020-04-14 09:17:00 175.26 cm [facility] Weight 2020-04-14 09:17:00 [facility] BMI Calculated 2020-04-14 09:17:00 [facility] Height 2020-04-13 15:03:00 175.26 cm [facility] BMI Calculated 2020-04-13 15:03:00 [facility] Weight 2020-04-13 15:03:00 [facility] Temperature Oral (F) 2020-04-13 00:56:00 97.9 F [facility] Heart Rate 2020-04-13 00:56:00 [facility] Respitory Rate 2020-04-13 00:56:00 [facility] Systolic (mm Hg) 2020-04-13 00:56:00 [facility] Diastolic (mm Hg) 2020-04-13 00:56:00 [facility] Systolic (mm Hg) 2020-04-12 23:30:00 Jimmy [facility] Diastolic (mm Hg) 2020-04-12 23:30:00 [facility] Temperature Oral (F) 2020-04-12 20:53:00 97.0 F [facility] Heart Rate 2020-04-12 20:53:00 [facility] Respitory Rate 2020-04-12 20:53:00 [facility] Systolic (mm Hg) 2020-04-12 20:53:00 [facility] Diastolic (mm Hg) 2020-04-12 20:53:00 [facility] Temperature Oral (F) 2020-04-12 20:11:00 98.1 F [facility] Heart Rate 2020-04-12 20:11:00 [facility] Respitory Rate 2020-04-12 20:11:00 [facility] Height 2020-04-07 18:34:00 175.26 cm [facility] Weight 2020-04-07 18:34:00 [facility] BMI Calculated 2020-04-07 18:34:00 [facility] Height 2020-04-07 14:31:00 175.26 cm [facility] Weight 2020-04-07 14:31:00 [facility] Height 2020-04-07 10:57:00 175.26 cm [facility] Weight 2020-04-07 10:57:00 [facility] BMI Calculated 2020-04-07 10:57:00 [facility] Height 2020-04-04 19:05:00 175.26 cm [facility] Weight 2020-04-04 19:05:00 [facility] BMI Calculated 2020-04-04 19:05:00 [facility] BMI Calculated 2020-04-03 17:53:00 [facility] Respitory Rate 2019-11-11 16:00:00 [facility] Systolic (mm Hg) 2019-11-11 16:00:00 [facility] Diastolic (mm Hg) 2019-11-11 16:00:00 [facility] Respitory Rate 2019-11-11 14:07:00 [facility] Systolic (mm Hg) 2019-11-11 14:07:00 [facility] Diastolic (mm Hg) 2019-11-11 14:07:00 [facility] Respitory Rate 2019-11-11 12:00:00 [facility] Systolic (mm Hg) 2019-11-11 12:00:00 [facility] Diastolic (mm Hg) 2019-11-11 12:00:00 [facility] Temperature Oral (F) 2019-11-10 17:00:00 97.6 F [facility] Height 2019-11-10 16:53:00 175.26 cm [facility] Weight 2019-11-10 16:53:00 [facility] BMI Calculated 2019-11-10 16:53:00 [facility] Respitory Rate 2019-10-17 05:00:00 [facility] Systolic (mm Hg) 2019-10-17 05:00:00 [facility] Diastolic (mm Hg) 2019-10-17 05:00:00 [facility] Systolic (mm Hg) 2019-10-17 04:00:00 [facility] Diastolic (mm Hg) 2019-10-17 04:00:00 [facility] Respitory Rate 2019-10-17 04:00:00 [facility] Temperature Oral (F) 2019-10-17 04:00:00 98.4 F [facility] Systolic (mm Hg) 2019-10-17 03:50:00 [facility] Diastolic (mm Hg) 2019-10-17 03:50:00 [facility] Respitory Rate 2019-10-17 03:50:00 Maricruz [facility] Temperature Oral (F) 2019-10-17 01:00:00 98.0 F [facility] Heart Rate 2019-10-16 22:37:00 [facility] Temperature Oral (F) 2019-10-16 22:37:00 98.4 F [facility] Height 2019-06-02 15:55:00 175.26 cm [facility] Weight 2019-06-02 15:55:00 [facility] BMI Calculated 2019-06-02 15:55:00 [facility] BMI Calculated 2019-04-19 15:35:00 [facility] Height 2019-04-19 15:35:00 175.26 cm [facility] Weight 2019-04-19 15:35:00 [facility] Height 2018-11-30 16:13:00 175.26 cm [facility] Weight 2018-11-30 16:13:00 [facility] BMI Calculated 2018-11-30 16:13:00 Maricruz ramsey [facility] Procedures Procedure Date / Time Performed Performing Clinician [facility] e Measurement of post-voiding residual uri ne and/or bladder capacity by ultrasound, non-imaging 2020-04-04 19:08:00 [facility] Computed tomography of brain without radiopaque contrast 201 07-06-15 00:00:00 PERRY PERALES [facility] Computed tomography of chest without contrast 2019-08-05 00: 00:00 IBAN RAMOS [facility] Complex cystometrogram (ie, calibrated e lectronic equipment); with voiding pressure studies (ie, bladder voiding pressure), any technique 2019-06-02 16:04:00 [facility] Voiding pressure studies, intra-abdomina l (ie, rectal, gastric, intraperitoneal) (List separately in addition to code for primary procedure) 2019-06-02 16:04:00 [facility] Complex uroflowmetry (eg, calibrated electronic equipment) 2 16:04:00 [facility] Electromyography studies (EMG) of anal o r urethral sphincter, other than needle, any technique 2019-06-02 16:04:00 [facility] Computed tomography of brain without radiopaque contrast 201 07-04-01 00:00:00 UNIOPOLISSAMARA [facility] Magnetic resonance imaging of brain without contrast 2019-05 00:00:00 THIAGOSAMARA [facility] X-ray of chest, two views 2019-05-26 00:00:00 TROY CODY [facility] MRI non-joint region of extremity upper wo contrast 00:00:00 THIAGOSAMARA [facility] X-ray of chest, two views 2019-04-23 00:00:00 IBAN RAMOS [facility] X-ray of chest, single view 2019-02-08 00:00:00 VENITA PRADO [facility] Cystoscopy 2018-08-25 05:00:00 [facility] uroflowmetry 2018-03-30 05:00:00 [facility] Catheter replacement [facility] Fusion<sup>1</sup> [facility] Prostate manipulation [facility] Stent replacement [facility] nn Ablation [facility] Cataract surgery [facility] n Colonoscopy [facility] Operation [facility] PCI - Percutaneous coronary intervention [facility] Plan of Care Planned Activity Planned Date Details Comments Source Future Scheduled Test 2020-06-27 00:00:00 INFLUENZA VACCINE [code = INFLUENZA VACCINE] [facility] Future Scheduled Test 2009 00:00:00 65+ PNEUMOCOCCAL V ACCINE (1 of 2 - PCV13) [code = 65+ PNEUMOCOCCAL VACCINE (1 of 2 - PCV13)] [facility] Future Scheduled Test 1994 00:00:00 COLONOSCOPY SCREEN ING [code = COLONOSCOPY SCREENING] [facility] Future Scheduled Test 1994 00:00:00 SHINGLES VACCINES (#1) [code = SHINGLES VACCINES (#1)] [facility] Encounters Start Date/Time End Date/Time Encounter Type Admission Type [facility] Care Department Encounter ID Source 2020-04-07 05:12:00 Inpatient [facility] [id number] [facility] 2019-12-27 08:46:46 Outpatient [facility] [id number] [facility] 2019-11-10 10:41:00 Inpatient [facility] [id number] [facility] 2020-04-13 10:00:54 2020-04-20 15:36:00 Outpatient Jhon , Fransisca Montero [facility] [id number] 2020-04-13 12:31:00 2020-04-13 10:00:00 Inpatient E [facility] MED [id number] [facility] 2020-04-07 05:12:00 2020-04-12 19:00:00 [facility] [id number] 2020-04-04 14:15:00 2020-04-04 23:59:59 [facility] [id number] 2020-03-13 13:00:00 2020-03-13 13:00:00 [facility] [id number] 2020-03-01 00:00:00 2020-03-01 00:00:00 Orders Only D yanira Unassigned, [place] [facility] [id number] 2020-02-29 09:58:00 2020-02-29 23:59:00 Hospital Encounter [facility] [id number] 2020-02-29 00:00:00 2020-02-29 00:00:00 Telephone [facility] [id number] 2020-02-29 00:00:00 2020-02-29 00:00:00 Nurse Triage Kena Arnold [facility] [id number] 2020-02-02 13:35:00 2020-02-02 23:59:00 Outpatient Teofilo Summers [facility] [id number] 2020-02-02 13:35:00 2020-02-02 13:35:00 Outpatient [id number] 2019-11-12 09:35:00 2019-11-12 12:01:00 Departed Emergency Room [facility] [id number] [facility] Patients [facility] 2019-11-10 10:41:00 2019-11-11 12:00:00 Outpatient Mundo Vásquez [facility] [id number] 2019-10-16 16:35:00 2019-10-16 23:39:00 Outpatient Santos Lissettevioletta Hess [facility] [id number] 2019-10-16 12:05:00 2019-10-16 15:53:00 Departed Emergency Room 1 RENAE MENDOZA [facility] [id number] [facility] 2019-10-16 14:58:00 2019-10-16 14:58:00 Emergency E [facility] [id number] [facility] 2019-10-06 00:28:00 2019-10-06 01:45:00 Departed Emergency Room [facility] [id number] [facility] 2019-08-05 23:06:00 2019-08-12 16:35:00 Discharged Inpatient 1 PERRY PERALES [facility] [id number] [facility] 2019-07-23 08:57:00 2019-07-23 23:59:00 Outpatient Mila JonesLyly [facility] M[facility] [id number] 2019-06-11 17:49:00 2019-06-16 17:48:00 Discharged Inpatient 1 ROSALIE SHORT [facility] [id number] [facility] 2019-06-02 11:15:00 2019-06-02 23:59:59 Outpatient Kelechi Sibley MG MG [id number] 2019-06-01 13:00:00 2019-06-01 23:59:59 Outpatient [facility] [id number] 2019-05-26 16:43:00 2019-05-28 12:59:00 Discharged Inpatient (obs) 1 ROSALIE SHORT [facility] [id number] [facility] 2019-05-27 09:00:00 2019-05-27 23:59:59 Outpatient Kelechi Sibley MG MG [id number] 2019-05-25 13:40:00 2019-05-25 13:40:00 Outpatient Kelechi Sibley MG MG [id number] 2019-05-18 13:45:00 2019-05-18 23:59:59 Outpatient MHMG MG [id number] 2019-05-04 13:50:00 2019-05-04 13:50:00 [facility] [id number] 2019-05-04 11:30:00 2019-05-04 11:30:00 Outpatient MG MG [id number] 2019-04-23 19:41:00 2019-05-04 10:54:00 Discharged Inpatient 1 ROSALIE SHORT [facility] [id number] [facility] 2019-04-21 14:00:00 2019-04-21 14:00:00 Outpatient VISIT, HARLAN MIKEY UAHT [facility] [id number] 2019-04-19 10:30:00 2019-04-19 23:59:59 Outpatient Humbertoyesica [facility] [id number] 2019-02-08 22:29:00 2019-02-15 14:47:00 Discharged Inpatient 1 ROSALIE SHORT [facility] [id number] [facility] 2019-01-05 22:50:00 2019-01-09 13:42:00 Discharged Inpatient 1 ROSALIE SHORT [facility] [id number] [facility] 2018-12-30 13:58:00 2018-12-31 15:25:00 Discharged Inpatient (obs) 3 HAILEE MCGUIRE [facility] [id number] [facility] 2018-12-28 09:25:00 2018-12-28 23:59:00 Outpatient Mila Jonese [facility] M[facility] [id number] 2018-12-13 12:11:00 2018-12-15 13:01:00 Discharged Inpatient 1 RENAE SOLARES [facility] [id number] [facility] 2018-12-08 11:09:00 2018-12-08 11:09:00 Registered Surgical Day Care [facility] [id number] [facility] 2018-11-30 10:30:00 2018-11-30 23:59:59 Outpatient Kelechi Sibley [facility] [id number] 2018-11-06 21:48:00 2018-11-07 15:53:00 Discharged Inpatient (obs) [facility] [id number] [facility] 2018-11-04 10:43:00 2018-11-05 23:59:59 Outpatient [facility] [id number] 2018-09-13 19:21:00 2018-09-16 12:23:00 Discharged Inpatient 1 ROSALIE SHORT [facility] [id number] [facility] 2018-08-02 07:48:00 2018-08-05 14:08:00 Discharged Inpatient 3 HAILEE MCGUIRE [facility] [id number] [facility] 2017-12-04 18:00:00 2017-12-04 23:59:00 Outpatient Oleksandr Polanco MHSE MHSE [id number] 2017-04-23 14:07:00 2017-04-23 23:59:00 Outpatient Mila JonesLyly [facility]IP M[facility] [id number] 2016-06-24 08:46:00 2016-06-24 23:59:00 Outpatient Fadi Galeas MHSE MHSE [id number] 2016-06-19 09:37:00 2016-06-19 23:59:00 Outpatient Fadi Galeas SE SE [id number] 2016-04-23 10:15:00 2016-04-23 23:59:00 Outpatient Monique Reed OIB OIB [id number] 2016-04-10 08:29:00 2016-04-10 23:59:00 Outpatient NicolasElida davis Naldo SE SE [id number] 2016-04-02 11:11:00 2016-04-02 23:59:00 Outpatient Guillermina Martínez HOIP HOIP [id number] 2016-03-28 06:32:00 2016-03-28 23:59:00 Outpatient Teofilo Summers SE SE [id number] 2016-03-06 09:34:00 2016-03-06 23:59:00 Outpatient Monique Reed OIB OIB [id number] Results Test Description Test Time Test Comments Results Result Comments Source CHEST SINGLE (PORTABLE) 2020-06-12 20:27:00 [place] [address] Patient Name: STEVE BENEDICT MR #: [id number] : 1945 Age/Sex: 74/M Req #: [id number] Adm Physician: Ordered by: CLEMENTINA STONE MD Report #: [id number] Location: ER Room/Bed: Procedure: [id number] DX/CHEST SINGLE (PORTABLE) Exam Date: Exam Time: REPORT STATUS: Signed EXAMINATION: CHEST SINGLE (PORTABLE) COMPARISON: Chest x-ray 10/16/2019 INDICATION: WEAKNESS Y fall DISCUSSION: Frontal view of the chest obtained at 1945 hours. HEART AND MEDIASTINUM: The heart is enlarged. The ureter is tortuous LINES: None. LUNGS/PLEURA: Subsegmental atelectasis in the left lower lobe has increased. Right lung is clear. Vascular markings are normal. No large effusions. No pneumothorax BONES AND SOFT TISSUES: Fusion plate in the lower cervical spine is partially imaged but grossly intact. There are fractures of the left sixth and seventh ribs. Fracture of the left eighth rib cannot be excluded. Mild degenerative changes of the acromioclavicular joints. The soft tissues are normal. IMPRESSION: Fractures of the left sixth and seventh ribs and possibly the left eighth rib. Subsegmental atelectasis of the left lung. No evidence of pneumothorax or hemothorax. Signed by: Dr. Lalo Chappell MD on 06/12/2020 8:30 PM Dictated By: LALO CHAPPELL MD 29 Transcribed By: ERAN on 06/12/202029 COPY TO: CLEMENTINA STONE MD [facility] 2020-04-20 15:44:00 3.2 [facility] CHEM PANEL 2020-04-20 11:15:00 2.0 [facility] CHEM PANEL 2020-04-20 11:15:00 103 [facility] CHEM PANEL 2020-04-20 11:15:00 39 [facility] CHEM PANEL 2020-04-20 11:15:00 1.56 [facility] CHEM PANEL 2020-04-20 11:15:00 136 [facility] CHEM PANEL 2020-04-20 11:15:00 2.8 [facility] CHEM PANEL 2020-04-20 11:15:00 97 [facility] CHEM PANEL 2020-04-20 11:15:00 33 [facility] CHEM PANEL 2020-04-20 11:15:00 8.8 [facility] CHEM PANEL 2020-04-20 11:15:00 8.3 [facility]M PANEL 2020-04-20 11:15:00 [facility] 2020-04-20 11:15:00 Normal (04/20/20 6:15 AM) [facility] HEMATOLOGY 2020-04-20 11:15:00 Normal (04/20/20 6:15 AM) [facility] HEMATOLOGY 2020-04-20 11:15:00 73.4 [facility] HEMATOLOGY 2020-04-20 11:15:00 16.9 [facility] HEMATOLOGY 2020-04-20 11:15:00 7.8 [facility] HEMATOLOGY 2020-04-20 11:15:00 1.0 [facility] HEMATOLOGY 2020-04-20 11:15:00 0.9 [facility] HEMATOLOGY 2020-04-20 11:15:00 3.5 [facility] HEMATOLOGY 2020-04-20 11:15:00 0.8 [facility] HEMATOLOGY 2020-04-20 11:15:00 0.4 [facility] HEMATOLOGY 2020-04-20 11:15:00 0.1 [facility] HEMATOLOGY 2020-04-20 11:15:00 4.8 [facility] HEMATOLOGY 2020-04-20 11:15:00 4.39 [facility] HEMATOLOGY 2020-04-20 11:15:00 12.1 [facility] HEMATOLOGY 2020-04-20 11:15:00 38.3 [facility] HEMATOLOGY 2020-04-20 11:15:00 87.2 [facility] HEMATOLOGY 2020-04-20 11:15:00 Test Item MCH (test code = MCH) 27.5 pg 27.0-31.0 [facility] VqucpmkVGTNBODJSR4488-46-53 11:15:0031.5[facility]annHEMATOLOGY 2020-04-20 11:15:0019.6[facility] LbnxyqqUHNLNUPHYG6405-25-33 11:15:07680Yngphitq WxmnxzdFAPOUPTQLV9963-81-53 11:15:008.0[facility] LpueccjCKTCUZZISH5877-91-22 18:33:0017.2[facility] LnkxdajUSVTGZIGWZ2205-59-06 18:33:00* Test Item Value Reference Range Interpretation Comments Oswaldo KOHLERD (test code = Oswaldo Botello TND) 1330 1 [facility]annCHEM FFNOP2449-54-13 10:04:0083[facility]annCHEM PANEL 2020-04-19 10:04:0036[facility]annCHEM AZVPR7074-44-00 10:04:001.50[facility]annCHEM AAHRY0774-02-55 10:04:65884Wckychqb HermannCHEM IBPOF8947-04-60 10:04:003.1[facility]annCHEM VTNQY2097-51-03 10:04:11955Hdajcpas HermannCHEM PQPSC9324-90-63 10:04:0035[facility]annCHEM ZEJDG1047-09-00 10:04:009.2 [facility]annCHE[facility] QBQGP5519-53-89 10:04:006.1[facility]annCHEM PANEL 2020-04-19 10:04:0045[facility] HermannCHEM HFVPM7891-39-69 10:04:001.6[facility]annCHEM LRSAN0775-73-50 10:04:003.4[facility] ViwysecMVZRSRAZDD8729-36-60 10:04:00Normal (04/19/20 5:04 AM)[facility] YdjsgfvKBXOILMWPQ9348-02-53 10:04:00 76.2[facility] FusvqfrOLJSFRCWAV1323-06-02 10:04:0015.3[facility] HermannHEMATOLOGY 2020-04-19 10:04:007.2[facility] CauymlmQZHYBQECMH6072-80-58 10:04:000.6[facility] DqxkwltTOCSLKNBKA7831-91-94 10:04:000.7[facility] EqozdiaDQLJBZBZTQ5753-17-62 10:04:003.5[facility] XpyraxgNDNDLZGNUO7580-10-14 10:04:000.7[facility] IVQVXTYMHY4256-77-45 10:04:000.3[facility] HcpvblmAWIABAIYSE4886-02-82 10:04:001+ (04/19/20 5:04 AM)[facility] BsukwrfYNCQZDOCQK3592-91-19 10:04:004.6[facility] IvogijuUOAUPWTVEA3567-70-57 10:04:004.73[facility] IpwvnaiMMBOTHATPZ5749-29-46 10:04:0012.8[facility] XifqoawCIQNPEZXPZ7573-63-89 10:04:0041.5[facility] DFKTBUILUB4792-10-35 10:04:0087.8[facility] EdseabwJVTEOTUJCZ1595-78-88 10:04:00* Test Item Value Reference Range Interpretation Comments MCH (test code = MCH) 27.1 pg 27.0-31.0 [facility] VebdezzVXYIYVCXWW1752-56-94 10:04:0030.8[facility] HermannHEMATOLOGY 2020-04-19 10:04:0019.5[facility] KyoyiatRLTQISYGHM3160-89-17 10:04:98984Yndzlxhe MjsahdfHISNLHRRSB5537-06-87 10:04:007.8[facility] HermannCHEM ATJQD7810-85-28 11:25:0077[facility]annCHEM RLIIH7346-04-57 11:25:0041[facility]annCHEM RHTFT0417-04-81 11:25:001.60[facility]annCHEM JGIWK3022-52-46 11:25:32399 [facility]annCHEM KASCQ1142-06-07 11:25:0098[facility]annCHEM PANEL 2020-04-18 11:25:0037[facility] HermannCHEM GVWSU6279-56-06 11:25:006.0[facility]annCHEM OONRJ4835-03-16 11:25:009.0[facility]annCHEM IOZYY8533-01-35 11:25:0042[facility]annCHEM ANJGJ7796-38-40 11:25:002.1[facility] OMDRFPVLJQ8502-42-37 11:25:004.8[facility] NebpvyiYCXYKSGATK6637-90-33 11:25:00 4.57[facility] UhtshntJKIUPIEWHV3985-64-51 11:25:0012.5[facility] HermannHEMATOLOGY 2020-04-18 11:25:0040.3[facility] EgdtiyaXAMFSTMQSF8584-87-08 11:25:0088.3[facility] EetqfliMXGIYLAHMR6525-02-98 11:25:00* Test Item Value Reference Range Interpretation Comments MCH (test code = MCH) 27.3 pg 27.0-31.0 [facility] BdxbhbvZICGEAYSEE8470-24-18 11:25:0030.9[facility] HermannHEMATOLOGY 2020-04-18 11:25:0019.9[facility] TixuppwXTRKFVUCHP6865-09-53 11:25:04146Fiptrqyq TzopxfoWJNPTEUDZH7008-72-95 11:25:007.9[facility] LcuwzrjWWQEFBIBJX7487-23-94 11:25:00Normal (04/18/20 6:25 AM)[facility] CiyaqchRDCOTSCLGI9060-93-82 11:25:00 73.6[facility] KqfxkjnAHXGGCYZNX0287-39-26 11:25:0017.5[facility] HermannHEMATOLOGY 2020-04-18 11:25:008.1[facility] LhxuxlcWUANMPRTBU5405-10-31 11:25:000.3[facility] JyypwgsXTNDMBQDGZ5161-61-70 11:25:000.5[facility] OuwxetpCWKLWKENVD6179-73-92 11:25:003.6[facility] BbrhccpGPFGJALAZE2501-37-74 11:25:000.8[facility] RYLNXNKBQK2457-09-04 11:25:000.4[facility] RdtcppbAVQPNGCRXR9291-70-47 11:25:001+ *ABN*(04/18/20 6:25 AM)[facility] YeeivxjOPEZYWRXWS0972-98-32 11:25:001+ (04/18/20 6:25 AM)[facility] YukvabbKKHDWBOVWE7770-56-47 17:21:0015.8[facility] YLTOZQAYAQ1511-15-19 15:22:0017.9[facility] HermannCARDIAC LHFLVZO7854-00-43 10:56:19860Mudezzup HermannCHEM YNXUF0184-70-81 10:56:003.1[facility] SWVXDWJRPE4375-07-22 10:56:000.1[facility] IlgrgbsTLTXTUFJPS6657-27-94 10:56:001+ (04/15/20 5:56 AM)[facility] QlqvdtrHEMEQWENMY5217-85-04 15:19:0025.5[facility] HermannBACTERIAL - JSPOAHGA6857-91-20 12:47:00Negative (04/14/20 7:47 AM)[facility] HermannCARDIAC CFCRYVY1029-12-98 10:50:000.13[facility] HermannCHEM PANEL 2020-04-14 10:50:004.5[facility] TqqoqgjXVYZLCERST5193-10-75 10:50:0054[facility] HvyfntgTBALORYEHE5911-52-76 10:50:97535.0[facility] HermannCARDIAC ENZYMES 2020-04-13 22:27:000.15[facility] DowucbuLHKVTPRGQQ7539-97-57 22:27:0031[facility]annURINE AND ABSJL3037-80-41 22:27:00Slight *ABN*(04/13/20 5:27 PM)[facility] AND QQQLN5552-67-20 22:27:00* Test Item Value Reference Range Interpretation Comments UA Spec Grav (test code = UA Spec Grav) 1.017 1 [facility] AND ENFRH8013-83-97 22:27:00* Test Item Value Reference Range Interpretation Comments UA pH (test code = UA pH) 5.0 1 5.0-8.0 [facility] EEBQK7621-34-73 22:27:00Negative *NA*(04/13/20 5:27 PM) [facility] PACMY4980-66-90 22:27:00Negative (04/13/20 5:27 PM) [facility] TBXFK4983-64-64 22:27:00Positive *ABN*(04/13/20 5:27 PM)[facility] AND QVVDC0047-16-88 22:27:00Negative (04/13/20 5:27 PM) [facility] VPAES1909-31-29 22:27:002[facility]annUR[facility] AND FJOOU9380-20-30 22:27:001[facility] AND IAJHH5135-17-33 22:27:0083 [facility] MZBY0468-47-79 22:27:00* Test Item Value Reference Range Interpretation Comments U Prot/Creat (test code = U Prot/Creat) 0.17 1 [facility] VYJW9403-36-58 22:27:60221.00[facility]annURINE CHEM 2020-04-13 22:27:0012[facility]annURINE IZDT8715-58-44 22:27:0036.0[facility]annURINE BZTC2809-79-44 22:27:00None Seen (04/13/20 5:27 PM)[facility] CARDIAC JIJFSMK7534-34-77 15:56:66747Oryznjzo HermannCARDIAC ZCKYYGG8303-58-24 15:56:0081[facility] HermannCARDIAC XOTPPYR6817-36-05 15:56:000.06[facility] CHEM MMLQF2011-20-49 15:56:000.58[facility] HermannCHEM TRRZF1318-61-59 15:56:00 6.1[facility] HermannCHEM HBMBS0913-67-32 15:56:002.6[facility] HermannCHEM PANEL 2020-04-13 15:56:0021[facility] HermannCHEM MOFSE8137-59-29 15:56:0025[facility] HermannCHEM BCLSB2590-36-98 15:56:0075[facility] HermannCHEM UYCTM2321-95-19 15:56:000.5[facility] HermannCHEM GVZFV9934-01-26 15:56:00* Test Item Value Reference Range Interpretation Comments B/C Ratio (test code = B/C Ratio) 23 1 6-25 [facility]annCHE[facility] OUQNT8414-78-75 15:56:003.5[facility] HermannCHEM PANEL 2020-04-13 15:56:00* Test Item Value Reference Range Interpretation Comments A/G Ratio (test code = A/G Ratio) 0.7 1 0.7-1.6 [facility]annCHEM QUUUG4207-81-34 15:56:002.0[facility] HermannHEMATOLOGY 2020-04-13 15:56:000.94[facility] AnziywlVNEYMMNZFZ4083-11-71 15:56:00* Test Item Value Reference Range Interpretation Comments PT (test code = PT) 13.2 s 12.0-14.7 [facility] SnvwdlcCBVCGONHHS1224-58-22 15:56:00* Test Item Value Reference Range Interpretation Comments INR (test code = INR) 1.00 1 0.85-1.17 [facility] IiaxnafUZXQWOYJFJ9521-48-51 15:56:00* Test Item Value Reference Range Interpretation Comments PTT (test code = PTT) 28.1 s 22.9-35.8 [facility]annMOLECULAR CNWQTYYBWH7645-79-32 15:56:00Not Detected (04/13/20 10:56 AM)[facility] HermannMOLECULAR JKMPIYQSYD0476-80-96 15:56:00Detected *ABN*(04/13/20 10:56 AM)[facility]annMOLECULAR PZPTJEWABO2245-94-26 15:56:00 Not Detected (04/13/20 10:56 AM)[facility] HermannMOLECULAR UJUYLZMICF1414-29-53 15:56:00Not Detected (04/13/20 10:56 AM)[facility]annMOLECULAR DIAGNOSTIC 2020-04-13 15:56:00Not Detected (04/13/20 10:56 AM)[facility]annMOLECULAR CQMXPMVALC4955-32-42 15:56:00Not Detected (04/13/20 10:56 AM)[facility] MOLECULAR VXHAQWGNRJ3837-16-65 15:56:00Not Detected (04/13/20 10:56 AM)[facility]annMOLECULAR OOQFXFTCMN3663-45-55 15:56:00Not Detected (04/13/20 10:56 AM) [facility]annMOLECULAR TDWOPYVECJ5333-14-07 15:56:00Not Detected (04/13/20 10:56 AM)[facility]annMOLECULAR FMHFEXDCHM4772-42-36 15:56:00Detected *ABN*(04/13/20 10:56 AM)[facility]annMOLECULAR TYUNEBLKIS5882-15-51 15:56:00 Not Detected (04/13/20 10:56 AM)[facility]annMOLECULAR HULZRCVWIZ0047-71-38 15:56:00Not Detected (04/13/20 10:56 AM)[facility]annMOLECULAR DIAGNOSTIC 2020-04-13 15:56:00Detected *ABN*(04/13/20 10:56 AM)[facility]annMOLECULAR FACDUASIJM8688-52-03 15:56:00Not Detected (04/13/20 10:56 AM)[facility] MOLECULAR YRSJRUHYPR5086-37-52 15:56:00Not Detected (04/13/20 10:56 AM)[facility] VwugaprEHLJCKOVGT3908-14-06 00:33:0017.9[facility] KprcakwORMPKEWDWV0254-71-91 00:33:00* Test Item Value Reference Range Interpretation Comments [facility] (test code = Vanco [facility] TND) 1930 1 [facility]annCHEM FBHMV2958-10-25 09:59:25931Zrllevrr HermannCHEM PANEL 2020-04-10 09:59:0064[facility] HermannCHEM OBVKR5119-91-65 09:59:001.77[facility] HermannCHEM UTAWH0341-31-60 09:59:92812Khpqwpll HermannCHEM QOFTY3455-28-81 09:59:003.7[facility] HermannCHEM YJEVU1871-36-32 09:59:0091[facility] HermannCHEM VFTQX3508-21-80 09:59:0042[facility] HermannCHEM ZFWYA6861-17-11 09:59:006.7 [facility]annCHEM URUBS9958-58-86 09:59:009.2[facility] HermannCHEM PANEL 2020-04-10 09:59:0037[facility] VxojtanPJWXQMERUW5320-23-46 00:42:0017.8[facility] MfdfhdfKURHRMSLII5288-90-40 00:42:00* Test Item Value Reference Range Interpretation Comments [facility] (test code = Vanco Tr TND) 2000 1 [facility]annCHEM NSLRC4999-96-54 10:57:89611Qjerqpca HermannCHEM PANEL 2020-04-09 10:57:0069[facility] HermannCHEM OXQEH7217-28-76 10:57:002.00[facility] HermannCHEM DYCCS2811-07-25 10:57:68782Kyxxudpd HermannCHEM RCZDB0552-62-86 10:57:004.1[facility] HermannCHEM KVRMQ1609-24-38 10:57:0091[facility] HermannCHEM IZFJD8100-69-71 10:57:0035[facility] HermannCHEM HLQKC8226-97-24 10:57:0015.1 [facility]annCHEM JDDQR8836-46-49 10:57:009.5[facility] HermannCHEM PANEL 2020-04-09 10:57:0032[facility] BujajdbJAEBYQKNPA4874-59-50 22:28:0016.5[facility] HermannCHEM QMVVN0576-16-15 15:22:41197Gqufarby HermannCHEM BGWLH7817-12-06 15:22:0065[facility] HermannCHEM GKWXF5577-42-41 15:22:001.88[facility] HermannCHEM GYFUX8457-95-38 15:22:84222Wmxmtpha HermannCHEM JGUFV4417-75-66 15:22:002.8 [facility]annCHEM QEBGO2158-18-77 15:22:0085[facility] HermannCHEM PANEL 2020-04-08 15:22:0043[facility] HermannCHEM DFZJE4428-76-95 15:22:009.8[facility] HermannCHEM HHGRX8417-96-85 15:22:009.1[facility] HermannCHEM EZOYV5985-58-02 15:22:0034[facility] KgwsitdLBMJICKSMR4309-19-69 15:22:007.3[facility] JUZVZIQIKG6493-87-64 15:22:004.74[facility] QnlkvvnPLCLCXZSVM3078-52-34 15:22:00 12.8[facility] ItaoidtTYNTZBTEBV7738-19-21 15:22:0041.2[facility] HermannHEMATOLOGY 2020-04-08 15:22:0086.8[facility] SbedjcmIMIMRXDNTZ8034-76-61 15:22:00* Test Item Value Reference Range Interpretation Comments MCH (test code = MCH) 27.0 pg 27.0-31.0 [facility] JnlmojlXCXEPGPHWL3288-60-84 15:22:0031.1[facility] HermannHEMATOLOGY 2020-04-08 15:22:0020.1[facility] QutmygnONSYCXARDY9546-26-08 15:22:43848Jkvxxipu RkybtwgXLZPCZTUNB3698-74-40 15:22:007.4[facility] RmlbrquJFVVUNZBLA2154-07-67 15:22:0083.0[facility] WrwuvwoLKETLNYHUJ5077-51-40 15:22:0011.0[facility] EFMAEIMINT0551-84-33 15:22:005.3[facility] EkjmgheFITURUUZNC2885-49-79 15:22:000.3 [facility] GpnuwqgSNMQCMYDGA6866-78-43 15:22:000.4[facility] HermannHEMATOLOGY 2020-04-08 15:22:006.1[facility] CmclmumBURDQGRCRA2962-25-22 15:22:000.8[facility] KyeqgemYBBENBOROO3557-61-81 15:22:000.4[facility]annURINE AND CSYIZ1143-52-57 19:09:00Yellow *NA*(04/04/20 2:09 PM)[facility] AND FBJBD6795-86-66 19:09:00Clear *NA*(04/04/20 2:09 PM)[facility] DUNBG0465-21-87 19:09:00* Test Item Value Reference Range Interpretation Comments POC UA SG (test code = POC UA SG) 1.015 1 [facility] [id number] 19:09:00* Test Item Value Reference Range Interpretation Comments POC UA pH (test code = POC UA pH) 6.0 1 5.0-8.0 [facility] OFAOK0567-15-35 19:09:00Negative *NA*(04/04/20 2:09 PM) [facility] EAHPF4362-56-16 19:09:00Negative *NA*(04/04/20 2:09 PM) [facility] PYEHT6849-41-17 19:09:000.2[facility] NXSBL6418-90-27 19:09:00Negative *NA*(04/04/20 2:09 PM)[facility] UVKIE5185-86-01 19:09:00Trace *ABN*(04/04/20 2:09 PM)[facility]annIMMUNOLOGY 2020-04-04 15:15:00Not Detected (04/04/20 10:15 AM)[facility] NQEHQIS4525-71-28 19:17:00Negative (04/03/20 2:17 PM)[facility]annCHEM PANEL 2020-04-03 19:17:00* Test Item Value Reference Range Interpretation Comments B/C Ratio (test code = B/C Ratio) 41 1 6-25 [facility]CHE[facility] KLRUA7625-93-40 19:17:006.5[facility]annCHEM PANEL 2020-04-03 19:17:003.3[facility]annCHEM ILELQ1740-15-05 19:17:003.2[facility]annCHEM BWOXD5999-83-39 19:17:00* Test Item Value Reference Range Interpretation Comments A/G Ratio (test code = A/G Ratio) 1.0 1 0.7-1.6 [facility]annCHE[facility] HHVJN2533-08-14 19:17:0025[facility]annCHEM PANEL 2020-04-03 19:17:0017[facility]annCHEM OCRHZ9091-46-11 19:17:66814Njhulwei HermannCHEM LVMAP9601-98-28 19:17:000.5[facility] ZprgxjbXPMIYPHMPC4564-24-69 19:17:007.9[facility] KqidfyrABQPWZTNGW9392-43-21 19:17:004.91[facility] AFMHZDINSU8617-20-63 19:17:0013.5[facility] QomyfycNEBINSATDV5620-66-46 19:17:00 42.7[facility] MmzkxioPMYCBTCKLK4211-09-60 19:17:0086.8[facility]annHEMATOLOGY 2020-04-03 19:17:00* Test Item Value Reference Range Interpretation Comments MCH (test code = MCH) 27.4 pg 27.0-31.0 [facility] CmqeoeyVXWQKMPCXJ4135-35-17 19:17:0031.6[facility]annHEMATOLOGY 2020-04-03 19:17:0019.5[facility] EeqyrhtFDPNJXGUZJ1902-62-06 19:17:48415Hyylnqjo NraamkaFVUXMZIISW8208-53-74 19:17:007.7[facility] VkqjrmzLORWEYNSRR6121-60-30 19:17:00* Test Item Value Reference Range Interpretation Comments R-time (test code = R-time) 5.0 min 5.0-10.0 [facility] XoczxhpJPWUNXDYEA6642-68-89 19:17:00* Test Item Value Reference Range Interpretation Comments K-time (test code = K-time) 1.4 min 1.0-3.0 [facility] MfsuveaKADBEGNJNJ0061-30-08 19:17:00* Test Item Value Reference Range Interpretation Comments Angle (test code = Angle) 67.5 degrees 53.0-72.0 [facility] GqiscaiKQMBGCTPPP0078-61-77 19:17:00* Test Item Value Reference Range Interpretation Comments Max Amp (test code = Max Amp) 65.7 mm 50.0-70.0 [facility] KqyheafBLYHNHRTVE3601-98-58 19:17:009.6[facility]annHEMATOLOGY 2020-04-03 19:17:000.0[facility] XjtpreiMLVWYLYLVW9980-60-32 19:17:00* Test Item Value Reference Range Interpretation Comments Coag Index (test code = Coag Index) 1.6 1 <=3.0 [facility] FpskhodNFPPFPGPXF8689-65-26 19:17:00See Note (04/03/20 2:17 PM)[facility] DxytkqfGOFGABEFSI0312-16-45 19:17:006.6[facility] KrqfpnnYTSKERDPMT7217-07-06 19:17:000.6[facility] CfjsetrCDCQBJKKXY8388-53-06 19:17:000.5[facility] PSHZFJELKA3865-89-51 19:17:000.1[facility] SywcahhBMSVJSOZMJ7942-29-73 19:17:00 83.0[facility] VyujkgpUECAYRPLLX5443-21-23 19:17:000.0[facility]annHEMATOLOGY 2020-04-03 19:17:008.0[facility] UuenuwzOARBNWZGAN5314-10-43 19:17:006.0[facility] SbptjcrPLCEVYKMOS9462-52-78 19:17:001.0[facility] TypqsuhXRHDRYCIOB9126-88-04 19:17:001.0[facility] LrcugoaXBHBLHXDDP8590-26-75 19:17:001.0[facility] GFSFECRPVA6600-36-67 19:17:000.0[facility] UaieqpjYRVNSILXPJ7430-09-77 19:17:001 [facility] IhpzhwtSYUTOGSMPF5636-37-48 19:17:00Normal (04/03/20 2:17 PM)[facility] EptzfphGDDUUGCNMM7606-03-74 19:17:001+ *ABN*(04/03/20 2:17 PM)[facility] [place] RXRFJTPSZM0936-38-80 19:17:0023.6[facility]annSPECIAL FJONUIZSW6505-15-62 19:17:008.1[facility] [place]- XR FOOT 2 VIEWS TA6632-08-86 13:11:00 [facility] 1945 Age[facility]S:74 /M [address] [facility] Unit#:[id number] Loc: [place] [address] Phys: Arsalan España MD Dis Date: PHONE #: [phone] Status: REG CLI FAX #: [phone] Exam Date: 03/28/2020 Re ason: DIATES EXAMS: CPT CODE: [id number] XR [address] [address] [place] [address] HISTORY: Diabetes. COM PARISON: Elbow x-ray from November 18, 2019. Location: [facility]. AP and lateral view of the left elbow: No erosive or destru ctive changes. No acute fracture or dislocation. Marginal osteophytes from the medial humeral condyle. No elbow joint fluid. Mineralization is anabell l. Mild soft tissue swelling. IMPRESSION: No a cute fracture or dislocation. No erosive or destructive changes joint fl uid. Previously noted olecranon soft tissue swelling has resolved. 3 views of the left foot: COMPARISON: N one available. Hammertoes. Mild of the DIP and the PIP joint s paces. Type II navicular bone. No erosive or destructive changes. No ank le joint fluid. Mild soft tissue swelling along the dorsum. IMPRESSION: No acute fracture or dislocation. DJD. No er osive or destructive changes. at 1311 Reported and signed b y: Tyler Subramanian M.D. CC: Arsalan España MD Technologist: Mini Bangura RT(R)(CT) T rnscrpt Data: 03/28/2020 (1311) [id number].[id number].[email or web address] Orig Print D/ T: S: 03/28/2020 (1334) PAGE 1 Si gned Report - XR ELBOW 2 VIEWS [id number] 13:11:00 Name: STEVE BENEDICT [facility] : 1945 Age/S:74 /M [address] [facility] Unit#:[id number] Loc: [place] [address] Phys: Arsalan España MD Dis Date: PHONE #: [phone] Status: REG CLI FAX #: [phone] Exam Date: 03/28/2020 Reason: DIATES EXAMS: CPT CODE: [id number] XR EL[place] [address] [place] [id number] HISTORY: Diabetes. COMPARISON: Elbow x-ray from November 18, 2019. Location: [facility]. AP and lateral view of the left elbow: No erosive or destructive changes. No acute fracture or dislocation. Marginal osteophytes from the medial humeral condyle. No elbow joint fluid. Mineralization is normal. Mild soft tissue swelling. IMPRESSION: No acute fracture or dislocation. No erosive or destructive changes joint fluid. Previously noted olecranon soft tissue swelling has resolved. 3 views of the left foot: COMPARISON: None available. Hammertoes. Mild of the DIP and the PIP joint spaces. Type II navicular bone. No erosive or destructive changes. No ankle joint fluid. Mild soft tissue swelling along the dorsum. IMPRESSION: No acute fracture or dislocation. DJD. No erosive or destructive changes. at 1311 Reported and signed by: Tyler Subramanian M.D. CC: Arsalan España MD Technologist: Mini Bangura RT(R)(CT) Trnscrpt Data: 03/28/2020 (5769) [id number] Orig Print D/T: S: 03/28/2020 (6489) PAGE 1 Signed Report [id number] 06:19:00* Test Item Value Reference Range Interpretation Comments GLUBED (test code = GLUBED) 98 mg/dL 74-106 N Performed by certified winchman/crane operator at [facility] [id number] 20:32:00* Test Item Value Reference Range Interpretation Comments GLUBED (test code = GLUBED) 122 mg/dL 74-106 H Performed by certified winchman/crane operator at [facility] [id number] 17:02:00* Test Item Value Reference Range Interpretation Comments GLUBED (test code = GLUBED) 193 mg/dL 74-106 H Performed by certified winchman/crane operator at [facility] [id number] 17:02:00* Test Item Value Reference Range Interpretation Comments GLUBED (test code = GLUBED) 109 mg/dL 74-106 H Performed by certified winchman/crane operator at [facility] BASIC METABOLIC [id number] 07:37:00* Test Item Value Reference Range Interpretation Comments SODIUM (test code = NA) 139 mmol/L 136-145 N POTASSIUM (test code = K) 4.4 mmol/L 3.5-5.1 N CHLORIDE (test code = CL) 93.0 mmol/L 98-107 L CARBON DIOXIDE (test code = CO2) 44.0 mmol/L 21-32 H ANION GAP (test code = GAP) 6.4 10-20 L GLUCOSE (test code = GLU) 139 mg/dL 74-106 H BLOOD UREA NITROGEN (test code = BUN) 21 mg/dL 7-18 H GLOMERULAR FILTRATION RATE (test code = GFR) > 60 mL/min >=60 Estimated GFR by using Modified MDRD formula.Chronic kidney disease is defined as either kidney damageor GFR <60 mL/min/1.73 m2 for >3 months. CREATININE (test code = CREAT) 1.00 mg/dL 0.7-1.3 N BUN/CREATININE RATIO (test code = BUN/CREA) 21.0 10-20 H CALCIUM (test code = CA) 9.6 mg/dL 8.5-10.1 N [id number] 07:37:00* Test Item Value Reference Range Interpretation Comments MAGNESIUM (test code = MAG) 2.4 mg/dL 1.8-2.4 N BASIC METABOLIC [id number] 06:36:00* Test Item Value Reference Range Interpretation Comments SODIUM (test code = NA) 139 mmol/L 136-145 N POTASSIUM (test code = K) 4.4 mmol/L 3.5-5.1 N CHLORIDE (test code = CL) 93.0 mmol/L 98-107 L CARBON DIOXIDE (test code = CO2) mmol/L 21-32 ANION GAP (test code = GAP) 10-20 GLUCOSE (test code = GLU) 139 mg/dL 74-106 H BLOOD UREA NITROGEN (test code = BUN) 21 mg/dL 7-18 H GLOMERULAR FILTRATION RATE (test code = GFR) > 60 mL/min >=60 Estimated GFR by using Modified MDRD formula.Chronic kidney disease is defined as either kidney damageor GFR <60 mL/min/1.73 m2 for >3 months. CREATININE (test code = CREAT) 1.00 mg/dL 0.7-1.3 N BUN/CREATININE RATIO (test code = BUN/CREA) 21.0 10-20 H CALCIUM (test code = CA) 9.6 mg/dL 8.5-10.1 N [id number] 06:36:00* Test Item Value Reference Range Interpretation Comments MAGNESIUM (test code = MAG) 2.4 mg/dL 1.8-2.4 N [id number] 05:52:00* Test Item Value Reference Range Interpretation Comments GLUBED (test code = GLUBED) 99 mg/dL 74-106 N Performed by certified winchman/crane operator at [facility] [id number] 05:25:00* Test Item Value Reference Range Interpretation Comments GLUBED (test code = GLUBED) 86 mg/dL 74-106 N Performed by certified winchman/crane operator at [facility] - XR FOOT 2 VIEWS [id number] 18:31:00 FAX: Rosalie Weathers MD [place]: B St: ADM FAX: Teofilo Poon MD [phone] FAX: Sofia León NP [phone] Name: STEVE BENEDICT [facility] : 1945 Age/S: 74/M [address] Unit #: [id number] Loc: [place] [address] Phys: Sofia León NP Acct: [id number] Dis Date: Status: ADM IN ONE #: [phone] Exam Date: 11/29/2019 1745 FAX #: [phone] Reason: PAIN/SWELLING/REDNESS EXAMS: CPT CODE: [id number] XR FO[place] [address] [place] [id number] REASON FOR EXAM: PAIN/SWELLING/REDNESS EXAM ORDER DATE: 11/29/2019 5:26 PM Ordering: Sofia León NP Attending:Rosalie Short MD Location:[facility] PROCEDURE: - XR FOOT 2 VIEWS LT FINDINGS: 3 views of the left foot were obtained. The osseous structures are unremarkable in size and shape. The joint spaces are nata ntained. No evidence of fracture. The phalanges are intact. The metata rsal and tarsal bones are unremarkable IMPRESSION: Soft tissue s welling in the dorsal aspect of the metatarsal area. No acute osseous ab normality at 183 1 Reported and signed by: Jc Farrell M.D. CC: Rosalie Short; Teofilo Summers MD; Sofia León NP Technologist: Avis Mcwilliams) Trnscrd Date/Time/By: 11/29/19 20 (1830) : By: DustinL Orig Print D/T: S: 11/29/2019 (1833) PAGE 1 Signed Report [id number] 17:02:00* Test Item Value Reference Range Interpretation Comments GLUBED (test code = GLUBED) 100 mg/dL 74-106 N Performed by certified winchman/crane operator at [facility] [id number] 15:30:00* Test Item Value Reference Range Interpretation Comments GLUBED (test code = GLUBED) 124 mg/dL 74-106 H Performed by certified winchman/crane operator at [facility] [id number] 07:13:00* Test Item Value Reference Range Interpretation Comments GLUBED (test code = GLUBED) 89 mg/dL 74-106 N Performed by certified winchman/crane operator at [facility] [id number] 21:29:00* Test Item Value Reference Range Interpretation Comments GLUBED (test code = GLUBED) 114 mg/dL 74-106 H Performed by certified winchman/crane operator at [facility] [id number] 18:21:00* Test Item Value Reference Range Interpretation Comments GLUBED (test code = GLUBED) 143 mg/dL 74-106 H Performed by certified winchman/crane operator at [facility] [id number] 12:47:00* Test Item Value Reference Range Interpretation Comments GLUBED (test code = GLUBED) 101 mg/dL 74-106 N Performed by certified winchman/crane operator at [facility] [id number] 09:08:00* Test Item Value Reference Range Interpretation Comments GLUBED (test code = GLUBED) 218 mg/dL 74-106 H Performed by certified winchman/crane operator at [facility] BASIC METABOLIC [id number] 07:42:00* Test Item Value Reference Range Interpretation Comments SODIUM (test code = NA) 141 mmol/L 136-145 N POTASSIUM (test code = K) 3.7 mmol/L 3.5-5.1 N CHLORIDE (test code = CL) 90.0 mmol/L 98-107 L CARBON DIOXIDE (test code = CO2) 47.0 mmol/L 21-32 H ANION GAP (test code = GAP) 7.7 10-20 L GLUCOSE (test code = GLU) 112 mg/dL 74-106 H BLOOD UREA NITROGEN (test code = BUN) 27 mg/dL 7-18 H GLOMERULAR FILTRATION RATE (test code = GFR) 59 mL/min >=60 Estimated GFR by using Modified MDRD formula.Chronic kidney disease is defined as either kidney damageor GFR <60 mL/min/1.73 m2 for >3 months. CREATININE (test code = CREAT) 1.20 mg/dL 0.7-1.3 N BUN/CREATININE RATIO (test code = BUN/CREA) 22.5 10-20 H CALCIUM (test code = CA) 9.9 mg/dL 8.5-10.1 N [id number] 07:02:00* Test Item Value Reference Range Interpretation Comments GLUBED (test code = GLUBED) 220 mg/dL 74-106 H Performed by certified winchman/crane operator at [facility] [id number] 07:02:00* Test Item Value Reference Range Interpretation Comments GLUBED (test code = GLUBED) 44 mg/dL 74-106 LL [facility] Protocol~ [id number] 07:02:00* Test Item Value Reference Range Interpretation Comments GLUBED (test code = GLUBED) 25 mg/dL 74-106 LL Test performed as P.O.C. by nursing staff.Performed by certified winchman/crane operator at [facility] [id number] 07:02:00* Test Item Value Reference Range Interpretation Comments GLUBED (test code = GLUBED) 36 mg/dL 74-106 LL Performed by certified winchman/crane operator at [facility] [id number] 07:02:00* Test Item Value Reference Range Interpretation Comments GLUBED (test code = GLUBED) 46 mg/dL 74-106 LL [facility]~ BASIC METABOLIC [id number] 06:56:00* Test Item Value Reference Range Interpretation Comments SODIUM (test code = NA) 141 mmol/L 136-145 N POTASSIUM (test code = K) 3.7 mmol/L 3.5-5.1 N CHLORIDE (test code = CL) 90.0 mmol/L 98-107 L CARBON DIOXIDE (test code = CO2) mmol/L 21-32 ANION GAP (test code = GAP) 10-20 GLUCOSE (test code = GLU) 112 mg/dL 74-106 H BLOOD UREA NITROGEN (test code = BUN) 27 mg/dL 7-18 H GLOMERULAR FILTRATION RATE (test code = GFR) 59 mL/min >=60 Estimated GFR by using Modified MDRD formula.Chronic kidney disease is defined as either kidney damageor GFR <60 mL/min/1.73 m2 for >3 months. CREATININE (test code = CREAT) 1.20 mg/dL 0.7-1.3 N BUN/CREATININE RATIO (test code = BUN/CREA) 22.5 10-20 H CALCIUM (test code = CA) 9.9 mg/dL 8.5-10.1 N BASIC METABOLIC [id number] 06:48:00* Test Item Value Reference Range Interpretation Comments SODIUM (test code = NA) 141 mmol/L 136-145 N POTASSIUM (test code = K) 3.7 mmol/L 3.5-5.1 N CHLORIDE (test code = CL) 90.0 mmol/L 98-107 L CARBON DIOXIDE (test code = CO2) mmol/L 21-32 ANION GAP (test code = GAP) 10-20 GLUCOSE (test code = GLU) mg/dL 74-106 BLOOD UREA NITROGEN (test code = BUN) mg/dL 7-18 GLOMERULAR FILTRATION RATE (test code = GFR) mL/min >=60 CREATININE (test code = CREAT) mg/dL 0.7-1.3 BUN/CREATININE RATIO (test code = BUN/CREA) 10-20 CALCIUM (test code = CA) mg/dL 8.5-10.1 CBC W/AUTO [id number] 06:48:00* Test Item Value Reference Range Interpretation Comments WHITE BLOOD CELL (test code = WBC) 6.0 K/mm3 4.5-12.5 N RED BLOOD CELL (test code = RBC) 4.20 mill/mm3 4.0-5.8 N HEMOGLOBIN (test code = HGB) 10.5 gram/dL 13.0-17.5 L HEMATOCRIT (test code = HCT) 36.8 % 42.0-52.0 L MEAN CELL VOLUME (test code = MCV) 87.6 fL 80-98 N MEAN CELL HGB (test code = MCH) 25.0 picogram 27.0-33.0 L MEAN CELL HGB CONCETRATION (test code = MCHC) 28.5 gram/dL 33.0-36. 0 L RED CELL DISTRIBUTION WIDTH (test code = RDW) 20.1 % 11.6-16. 2 H RED CELL DISTRIBUTION WIDTH SD (test code = RDW-SD) 63.4 fL 37 .0-51.0 H PLATELET COUNT (test code = PLT) 196 K/mm3 150-450 N MEAN PLATELET VOLUME (test code = MPV) 9.3 fL 6.7-11.0 N NEUTROPHIL % (test code = NT%) 67.6 % 39.0-69.0 N IMMATURE GRANULOCYTE % (test code = IG%) 1.7 % 0.0-5.0 N LYMPHOCYTE % (test code = LY%) 18.7 % 25.0-55.0 L MONOCYTE % (test code = MO%) 10.4 % 0.0-10.0 H EOSINOPHIL % (test code = EO%) 1.3 % 0.0-5.0 N BASOPHIL % (test code = BA%) 0.3 % 0.0-1.0 N NUCLEATED RBC % (test code = NRBC%) 0.5 % 0-0 H NEUTROPHIL # (test code = NT#) 4.02 K/mm3 1.8-7.7 N IMMATURE GRANULOCYTE # (test code = IG#) 0.10 x10 3/uL 0-0.03 H LYMPHOCYTE # (test code = LY#) 1.11 K/mm3 1.0-5.0 N MONOCYTE # (test code = MO#) 0.62 K/mm3 0-0.8 N EOSINOPHIL # (test code = EO#) 0.08 K/mm3 0.0-0.5 N BASOPHIL # (test code = BA#) 0.02 K/mm3 0.0-0.2 N NUCLEATED RBC # (test code = NRBC#) 0.03 K/mm3 0.0-0.1 N MANUAL DIFF REQUIRED (test code = MDIFF) NO, ONLY SCAN NEEDED DIFFERENTIAL [id number] 06:48:00* Test Item Value Reference Range Interpretation Comments STAIN ACCEPTABILITY (test code = STN ACCEPTABLE) STAIN ACCEPTABLE POLYCHROMASIA (test code = POLC) 2+ POIKILOCYTOSIS (test code = POIK) 1+ ANISOCYTOSIS (test code = ANISO) 2+ MICROCYTOSIS (test code = MICR) 1+ TEAR DROP CELLS (test code = TEAR) 1+ OVALOCYTES (test code = OVAL) 1+ PLATELET ESTIMATE (test code = PLTEST) ADEQUATE PLATELET MORPHOLOGY (test code = PLTMORPH) NORMAL CBC W/AUTO [id number] 06:19:00* Test Item Value Reference Range Interpretation Comments WHITE BLOOD CELL (test code = WBC) 6.0 K/mm3 4.5-12.5 N RED BLOOD CELL (test code = RBC) 4.20 mill/mm3 4.0-5.8 N HEMOGLOBIN (test code = HGB) 10.5 gram/dL 13.0-17.5 L HEMATOCRIT (test code = HCT) 36.8 % 42.0-52.0 L MEAN CELL VOLUME (test code = MCV) 87.6 fL 80-98 N MEAN CELL HGB (test code = MCH) 25.0 picogram 27.0-33.0 L MEAN CELL HGB CONCETRATION (test code = MCHC) 28.5 gram/dL 33.0-36. 0 L RED CELL DISTRIBUTION WIDTH (test code = RDW) 20.1 % 11.6-16. 2 H RED CELL DISTRIBUTION WIDTH SD (test code = RDW-SD) 63.4 fL 37 .0-51.0 H PLATELET COUNT (test code = PLT) 196 K/mm3 150-450 N MEAN PLATELET VOLUME (test code = MPV) 9.3 fL 6.7-11.0 N NEUTROPHIL % (test code = NT%) 67.6 % 39.0-69.0 N IMMATURE GRANULOCYTE % (test code = IG%) 1.7 % 0.0-5.0 N LYMPHOCYTE % (test code = LY%) 18.7 % 25.0-55.0 L MONOCYTE % (test code = MO%) 10.4 % 0.0-10.0 H EOSINOPHIL % (test code = EO%) 1.3 % 0.0-5.0 N BASOPHIL % (test code = BA%) 0.3 % 0.0-1.0 N NUCLEATED RBC % (test code = NRBC%) 0.5 % 0-0 H NEUTROPHIL # (test code = NT#) 4.02 K/mm3 1.8-7.7 N IMMATURE GRANULOCYTE # (test code = IG#) 0.10 x10 3/uL 0-0.03 H LYMPHOCYTE # (test code = LY#) 1.11 K/mm3 1.0-5.0 N MONOCYTE # (test code = MO#) 0.62 K/mm3 0-0.8 N EOSINOPHIL # (test code = EO#) 0.08 K/mm3 0.0-0.5 N BASOPHIL # (test code = BA#) 0.02 K/mm3 0.0-0.2 N NUCLEATED RBC # (test code = NRBC#) 0.03 K/mm3 0.0-0.1 N MANUAL DIFF REQUIRED (test code = MDIFF) NO, ONLY SCAN NEEDED DIFFERENTIAL [id number] 06:19:00* Test Item Value Reference Range Interpretation Comments STAIN ACCEPTABILITY (test code = STN ACCEPTABLE) CABOT RINGS (test code = CAB) MORPHOLOGY COMMENT (test code = MOC) PLATELET ESTIMATE (test code = PLTEST) PLATELET MORPHOLOGY (test code = PLTMORPH) CBC W/AUTO [id number] 06:19:00* Test Item Value Reference Range Interpretation Comments WHITE BLOOD CELL (test code = WBC) 6.0 K/mm3 4.5-12.5 N RED BLOOD CELL (test code = RBC) 4.20 mill/mm3 4.0-5.8 N HEMOGLOBIN (test code = HGB) 10.5 gram/dL 13.0-17.5 L HEMATOCRIT (test code = HCT) 36.8 % 42.0-52.0 L MEAN CELL VOLUME (test code = MCV) 87.6 fL 80-98 N MEAN CELL HGB (test code = MCH) 25.0 picogram 27.0-33.0 L MEAN CELL HGB CONCETRATION (test code = MCHC) 28.5 gram/dL 33.0-36. 0 L RED CELL DISTRIBUTION WIDTH (test code = RDW) 20.1 % 11.6-16. 2 H RED CELL DISTRIBUTION WIDTH SD (test code = RDW-SD) 63.4 fL 37 .0-51.0 H PLATELET COUNT (test code = PLT) 196 K/mm3 150-450 N MEAN PLATELET VOLUME (test code = MPV) 9.3 fL 6.7-11.0 N NEUTROPHIL % (test code = NT%) 67.6 % 39.0-69.0 N IMMATURE GRANULOCYTE % (test code = IG%) 1.7 % 0.0-5.0 N LYMPHOCYTE % (test code = LY%) 18.7 % 25.0-55.0 L MONOCYTE % (test code = MO%) 10.4 % 0.0-10.0 H EOSINOPHIL % (test code = EO%) 1.3 % 0.0-5.0 N BASOPHIL % (test code = BA%) 0.3 % 0.0-1.0 N NUCLEATED RBC % (test code = NRBC%) 0.5 % 0-0 H NEUTROPHIL # (test code = NT#) 4.02 K/mm3 1.8-7.7 N IMMATURE GRANULOCYTE # (test code = IG#) 0.10 x10 3/uL 0-0.03 H LYMPHOCYTE # (test code = LY#) 1.11 K/mm3 1.0-5.0 N MONOCYTE # (test code = MO#) 0.62 K/mm3 0-0.8 N EOSINOPHIL # (test code = EO#) 0.08 K/mm3 0.0-0.5 N BASOPHIL # (test code = BA#) 0.02 K/mm3 0.0-0.2 N NUCLEATED RBC # (test code = NRBC#) 0.03 K/mm3 0.0-0.1 N MANUAL DIFF REQUIRED (test code = MDIFF) NO, ONLY SCAN NEEDED DIFFERENTIAL [id number] 06:19:00* Test Item Value Reference Range Interpretation Comments STAIN ACCEPTABILITY (test code = STN ACCEPTABLE) CABOT RINGS (test code = CAB) MORPHOLOGY COMMENT (test code = MOC) PLATELET ESTIMATE (test code = PLTEST) PLATELET MORPHOLOGY (test code = PLTMORPH) CBC W/AUTO [id number] 06:19:00* Test Item Value Reference Range Interpretation Comments WHITE BLOOD CELL (test code = WBC) 6.0 K/mm3 4.5-12.5 N RED BLOOD CELL (test code = RBC) 4.20 mill/mm3 4.0-5.8 N HEMOGLOBIN (test code = HGB) 10.5 gram/dL 13.0-17.5 L HEMATOCRIT (test code = HCT) 36.8 % 42.0-52.0 L MEAN CELL VOLUME (test code = MCV) 87.6 fL 80-98 N MEAN CELL HGB (test code = MCH) 25.0 picogram 27.0-33.0 L MEAN CELL HGB CONCETRATION (test code = MCHC) 28.5 gram/dL 33.0-36. 0 L RED CELL DISTRIBUTION WIDTH (test code = RDW) 20.1 % 11.6-16. 2 H RED CELL DISTRIBUTION WIDTH SD (test code = RDW-SD) 63.4 fL 37 .0-51.0 H PLATELET COUNT (test code = PLT) 196 K/mm3 150-450 N MEAN PLATELET VOLUME (test code = MPV) 9.3 fL 6.7-11.0 N NEUTROPHIL % (test code = NT%) 67.6 % 39.0-69.0 N IMMATURE GRANULOCYTE % (test code = IG%) 1.7 % 0.0-5.0 N LYMPHOCYTE % (test code = LY%) 18.7 % 25.0-55.0 L MONOCYTE % (test code = MO%) 10.4 % 0.0-10.0 H EOSINOPHIL % (test code = EO%) 1.3 % 0.0-5.0 N BASOPHIL % (test code = BA%) 0.3 % 0.0-1.0 N NUCLEATED RBC % (test code = NRBC%) 0.5 % 0-0 H NEUTROPHIL # (test code = NT#) 4.02 K/mm3 1.8-7.7 N IMMATURE GRANULOCYTE # (test code = IG#) 0.10 x10 3/uL 0-0.03 H LYMPHOCYTE # (test code = LY#) 1.11 K/mm3 1.0-5.0 N MONOCYTE # (test code = MO#) 0.62 K/mm3 0-0.8 N EOSINOPHIL # (test code = EO#) 0.08 K/mm3 0.0-0.5 N BASOPHIL # (test code = BA#) 0.02 K/mm3 0.0-0.2 N NUCLEATED RBC # (test code = NRBC#) 0.03 K/mm3 0.0-0.1 N MANUAL DIFF REQUIRED (test code = MDIFF) NO, ONLY SCAN NEEDED DIFFERENTIAL [id number] 06:19:00* Test Item Value Reference Range Interpretation Comments STAIN ACCEPTABILITY (test code = STN ACCEPTABLE) MORPHOLOGY COMMENT (test code = MOC) PLATELET ESTIMATE (test code = PLTEST) PLATELET MORPHOLOGY (test code = PLTMORPH) CBC W/AUTO [id number] 06:19:00* Test Item Value Reference Range Interpretation Comments WHITE BLOOD CELL (test code = WBC) 6.0 K/mm3 4.5-12.5 N RED BLOOD CELL (test code = RBC) 4.20 mill/mm3 4.0-5.8 N HEMOGLOBIN (test code = HGB) 10.5 gram/dL 13.0-17.5 L HEMATOCRIT (test code = HCT) 36.8 % 42.0-52.0 L MEAN CELL VOLUME (test code = MCV) 87.6 fL 80-98 N MEAN CELL HGB (test code = MCH) 25.0 picogram 27.0-33.0 L MEAN CELL HGB CONCETRATION (test code = MCHC) 28.5 gram/dL 33.0-36. 0 L RED CELL DISTRIBUTION WIDTH (test code = RDW) 20.1 % 11.6-16. 2 H RED CELL DISTRIBUTION WIDTH SD (test code = RDW-SD) 63.4 fL 37 .0-51.0 H PLATELET COUNT (test code = PLT) 196 K/mm3 150-450 N MEAN PLATELET VOLUME (test code = MPV) 9.3 fL 6.7-11.0 N NEUTROPHIL % (test code = NT%) 67.6 % 39.0-69.0 N IMMATURE GRANULOCYTE % (test code = IG%) 1.7 % 0.0-5.0 N LYMPHOCYTE % (test code = LY%) 18.7 % 25.0-55.0 L MONOCYTE % (test code = MO%) 10.4 % 0.0-10.0 H EOSINOPHIL % (test code = EO%) 1.3 % 0.0-5.0 N BASOPHIL % (test code = BA%) 0.3 % 0.0-1.0 N NUCLEATED RBC % (test code = NRBC%) 0.5 % 0-0 H NEUTROPHIL # (test code = NT#) 4.02 K/mm3 1.8-7.7 N IMMATURE GRANULOCYTE # (test code = IG#) 0.10 x10 3/uL 0-0.03 H LYMPHOCYTE # (test code = LY#) 1.11 K/mm3 1.0-5.0 N MONOCYTE # (test code = MO#) 0.62 K/mm3 0-0.8 N EOSINOPHIL # (test code = EO#) 0.08 K/mm3 0.0-0.5 N BASOPHIL # (test code = BA#) 0.02 K/mm3 0.0-0.2 N NUCLEATED RBC # (test code = NRBC#) 0.03 K/mm3 0.0-0.1 N MANUAL DIFF REQUIRED (test code = MDIFF) NO, ONLY SCAN NEEDED DIFFERENTIAL [id number] 06:19:00* Test Item Value Reference Range Interpretation Comments STAIN ACCEPTABILITY (test code = STN ACCEPTABLE) CABOT RINGS (test code = CAB) MORPHOLOGY COMMENT (test code = MOC) PLATELET ESTIMATE (test code = PLTEST) PLATELET MORPHOLOGY (test code = PLTMORPH) [id number] 22:06:00* Test Item Value Reference Range Interpretation Comments GLUBED (test code = GLUBED) 146 mg/dL 74-106 H Performed by certified winchman/crane operator at [facility] [id number] 16:54:00* Test Item Value Reference Range Interpretation Comments GLUBED (test code = GLUBED) 143 mg/dL 74-106 H Performed by certified winchman/crane operator at [facility] [id number] 12:27:00* Test Item Value Reference Range Interpretation Comments GLUBED (test code = GLUBED) 121 mg/dL 74-106 H Performed by certified winchman/crane operator at [facility] [id number] 10:32:00* Test Item Value Reference Range Interpretation Comments GLUBED (test code = GLUBED) 64 mg/dL 74-106 L Performed by certified winchman/crane operator at [facility] [id number] 07:13:00* Test Item Value Reference Range Interpretation Comments GLUBED (test code = GLUBED) 132 mg/dL 74-106 H Performed by certified winchman/crane operator at [facility] BASIC METABOLIC [id number] 06:43:00* Test Item Value Reference Range Interpretation Comments SODIUM (test code = NA) 141 mmol/L 136-145 N POTASSIUM (test code = K) 3.2 mmol/L 3.5-5.1 L CHLORIDE (test code = CL) 96.0 mmol/L 98-107 L CARBON DIOXIDE (test code = CO2) 43.0 mmol/L 21-32 H ANION GAP (test code = GAP) 5.2 10-20 L GLUCOSE (test code = GLU) 113 mg/dL 74-106 H BLOOD UREA NITROGEN (test code = BUN) 26 mg/dL 7-18 H GLOMERULAR FILTRATION RATE (test code = GFR) 59 mL/min >=60 Estimated GFR by using Modified MDRD formula.Chronic kidney disease is defined as either kidney damageor GFR <60 mL/min/1.73 m2 for >3 months. CREATININE (test code = CREAT) 1.20 mg/dL 0.7-1.3 N BUN/CREATININE RATIO (test code = BUN/CREA) 21.7 10-20 H CALCIUM (test code = CA) 9.5 mg/dL 8.5-10.1 N BASIC METABOLIC [id number] 06:39:00* Test Item Value Reference Range Interpretation Comments SODIUM (test code = NA) 141 mmol/L 136-145 N POTASSIUM (test code = K) 3.2 mmol/L 3.5-5.1 L CHLORIDE (test code = CL) 96.0 mmol/L 98-107 L CARBON DIOXIDE (test code = CO2) mmol/L 21-32 ANION GAP (test code = GAP) 10-20 GLUCOSE (test code = GLU) mg/dL 74-106 BLOOD UREA NITROGEN (test code = BUN) mg/dL 7-18 GLOMERULAR FILTRATION RATE (test code = GFR) mL/min >=60 CREATININE (test code = CREAT) mg/dL 0.7-1.3 BUN/CREATININE RATIO (test code = BUN/CREA) 10-20 CALCIUM (test code = CA) mg/dL 8.5-10.1 [id number] 22:22:00* Test Item Value Reference Range Interpretation Comments GLUBED (test code = GLUBED) 136 mg/dL 74-106 H Performed by certified winchman/crane operator at [facility] [id number] 17:04:00* Test Item Value Reference Range Interpretation Comments GLUBED (test code = GLUBED) 196 mg/dL 74-106 H Performed by certified winchman/crane operator at [facility] [id number] 14:42:00* Test Item Value Reference Range Interpretation Comments MAGNESIUM (test code = MAG) 2.2 mg/dL 1.8-2.4 N [id number] 12:42:00* Test Item Value Reference Range Interpretation Comments GLUBED (test code = GLUBED) 128 mg/dL 74-106 H Performed by certified winchman/crane operator at [facility] BASIC METABOLIC [id number] 07:40:00* Test Item Value Reference Range Interpretation Comments SODIUM (test code = NA) 145 mmol/L 136-145 N POTASSIUM (test code = K) 4.0 mmol/L 3.5-5.1 N CHLORIDE (test code = CL) 103.0 mmol/L 98-107 N CARBON DIOXIDE (test code = CO2) 36.0 mmol/L 21-32 H ANION GAP (test code = GAP) 10.0 10-20 N GLUCOSE (test code = GLU) 110 mg/dL 74-106 H BLOOD UREA NITROGEN (test code = BUN) 27 mg/dL 7-18 H GLOMERULAR FILTRATION RATE (test code = GFR) 46 mL/min >=60 Estimated GFR by using Modified MDRD formula.Chronic kidney disease is defined as either kidney damageor GFR <60 mL/min/1.73 m2 for >3 months. CREATININE (test code = CREAT) 1.50 mg/dL 0.7-1.3 H BUN/CREATININE RATIO (test code = BUN/CREA) 18.0 10-20 N CALCIUM (test code = CA) 8.4 mg/dL 8.5-10.1 L BASIC METABOLIC [id number] 07:31:00* Test Item Value Reference Range Interpretation Comments SODIUM (test code = NA) 145 mmol/L 136-145 N POTASSIUM (test code = K) 4.0 mmol/L 3.5-5.1 N CHLORIDE (test code = CL) 103.0 mmol/L 98-107 N CARBON DIOXIDE (test code = CO2) mmol/L 21-32 ANION GAP (test code = GAP) 10-20 GLUCOSE (test code = GLU) mg/dL 74-106 BLOOD UREA NITROGEN (test code = BUN) mg/dL 7-18 GLOMERULAR FILTRATION RATE (test code = GFR) mL/min >=60 CREATININE (test code = CREAT) mg/dL 0.7-1.3 BUN/CREATININE RATIO (test code = BUN/CREA) 10-20 CALCIUM (test code = CA) mg/dL 8.5-10.1 [id number] 06:15:00* Test Item Value Reference Range Interpretation Comments GLUBED (test code = GLUBED) 153 mg/dL 74-106 H Performed by certified winchman/crane operator at [facility] [id number] 20:40:00* Test Item Value Reference Range Interpretation Comments GLUBED (test code = GLUBED) 150 mg/dL 74-106 H Performed by certified winchman/crane operator at [facility] [id number] 17:55:00* Test Item Value Reference Range Interpretation Comments GLUBED (test code = GLUBED) 133 mg/dL 74-106 H Performed by certified winchman/crane operator at [facility] [id number] 14:38:00* Test Item Value Reference Range Interpretation Comments GLUBED (test code = GLUBED) 153 mg/dL 74-106 H Performed by certified winchman/crane operator at [facility] BASIC METABOLIC [id number] 07:10:00* Test Item Value Reference Range Interpretation Comments SODIUM (test code = NA) 143 mmol/L 136-145 N POTASSIUM (test code = K) 4.1 mmol/L 3.5-5.1 N CHLORIDE (test code = CL) 102.0 mmol/L 98-107 N CARBON DIOXIDE (test code = CO2) 38.0 mmol/L 21-32 H ANION GAP (test code = GAP) 7.1 10-20 L GLUCOSE (test code = GLU) 116 mg/dL 74-106 H BLOOD UREA NITROGEN (test code = BUN) 23 mg/dL 7-18 H GLOMERULAR FILTRATION RATE (test code = GFR) 59 mL/min >=60 Estimated GFR by using Modified MDRD formula.Chronic kidney disease is defined as either kidney damageor GFR <60 mL/min/1.73 m2 for >3 months. CREATININE (test code = CREAT) 1.20 mg/dL 0.7-1.3 N BUN/CREATININE RATIO (test code = BUN/CREA) 19.2 10-20 N CALCIUM (test code = CA) 8.2 mg/dL 8.5-10.1 L BASIC METABOLIC [id number] 07:05:00* Test Item Value Reference Range Interpretation Comments SODIUM (test code = NA) 143 mmol/L 136-145 N POTASSIUM (test code = K) 4.1 mmol/L 3.5-5.1 N CHLORIDE (test code = CL) 102.0 mmol/L 98-107 N CARBON DIOXIDE (test code = CO2) mmol/L 21-32 ANION GAP (test code = GAP) 10-20 GLUCOSE (test code = GLU) mg/dL 74-106 BLOOD UREA NITROGEN (test code = BUN) mg/dL 7-18 GLOMERULAR FILTRATION RATE (test code = GFR) mL/min >=60 CREATININE (test code = CREAT) mg/dL 0.7-1.3 BUN/CREATININE RATIO (test code = BUN/CREA) 10-20 CALCIUM (test code = CA) mg/dL 8.5-10.1 [id number] 06:32:00* Test Item Value Reference Range Interpretation Comments GLUBED (test code = GLUBED) 120 mg/dL 74-106 H Performed by certified winchman/crane operator at [facility] CBC W/AUTO [id number] 04:46:00* Test Item Value Reference Range Interpretation Comments WHITE BLOOD CELL (test code = WBC) 4.9 K/mm3 4.5-12.5 N RED BLOOD CELL (test code = RBC) 3.82 mill/mm3 4.0-5.8 L HEMOGLOBIN (test code = HGB) 9.5 gram/dL 13.0-17.5 L HEMATOCRIT (test code = HCT) 33.5 % 42.0-52.0 L MEAN CELL VOLUME (test code = MCV) 87.7 fL 80-98 N MEAN CELL HGB (test code = MCH) 24.9 picogram 27.0-33.0 L MEAN CELL HGB CONCETRATION (test code = MCHC) 28.4 gram/dL 33.0-36. 0 L RED CELL DISTRIBUTION WIDTH (test code = RDW) 20.6 % 11.6-16. 2 H RED CELL DISTRIBUTION WIDTH SD (test code = RDW-SD) 64.8 fL 37 .0-51.0 H PLATELET COUNT (test code = PLT) 159 K/mm3 150-450 N MEAN PLATELET VOLUME (test code = MPV) 10.2 fL 6.7-11.0 N NEUTROPHIL % (test code = NT%) 65.6 % 39.0-69.0 N IMMATURE GRANULOCYTE % (test code = IG%) 1.2 % 0.0-5.0 N LYMPHOCYTE % (test code = LY%) 21.8 % 25.0-55.0 L MONOCYTE % (test code = MO%) 9.8 % 0.0-10.0 N EOSINOPHIL % (test code = EO%) 1.2 % 0.0-5.0 N BASOPHIL % (test code = BA%) 0.4 % 0.0-1.0 N NUCLEATED RBC % (test code = NRBC%) 0.4 % 0-0 H NEUTROPHIL # (test code = NT#) 3.22 K/mm3 1.8-7.7 N IMMATURE GRANULOCYTE # (test code = IG#) 0.06 x10 3/uL 0-0.03 H LYMPHOCYTE # (test code = LY#) 1.07 K/mm3 1.0-5.0 N MONOCYTE # (test code = MO#) 0.48 K/mm3 0-0.8 N EOSINOPHIL # (test code = EO#) 0.06 K/mm3 0.0-0.5 N BASOPHIL # (test code = BA#) 0.02 K/mm3 0.0-0.2 N NUCLEATED RBC # (test code = NRBC#) 0.02 K/mm3 0.0-0.1 N MANUAL DIFF REQUIRED (test code = MDIFF) NO, ONLY SCAN NEEDED DIFFERENTIAL [id number] 04:46:00* Test Item Value Reference Range Interpretation Comments STAIN ACCEPTABILITY (test code = STN ACCEPTABLE) STAIN ACCEPTABLE POLYCHROMASIA (test code = POLC) 1+ BASOPHILIC STIPPLING (test code = STP) 1+ ANISOCYTOSIS (test code = ANISO) 2+ MICROCYTOSIS (test code = MICR) 2+ PLATELET ESTIMATE (test code = PLTEST) ADEQUATE PLATELET MORPHOLOGY (test code = PLTMORPH) NORMAL BASIC METABOLIC [id number] 04:40:00* Test Item Value Reference Range Interpretation Comments SODIUM (test code = NA) 143 mmol/L 136-145 N POTASSIUM (test code = K) 3.8 mmol/L 3.5-5.1 N CHLORIDE (test code = CL) 102.0 mmol/L 98-107 N CARBON DIOXIDE (test code = CO2) 38.0 mmol/L 21-32 H ANION GAP (test code = GAP) 6.8 10-20 L GLUCOSE (test code = GLU) 120 mg/dL 74-106 H BLOOD UREA NITROGEN (test code = BUN) 24 mg/dL 7-18 H GLOMERULAR FILTRATION RATE (test code = GFR) 54 mL/min >=60 Estimated GFR by using Modified MDRD formula.Chronic kidney disease is defined as either kidney damageor GFR <60 mL/min/1.73 m2 for >3 months. CREATININE (test code = CREAT) 1.30 mg/dL 0.7-1.3 N BUN/CREATININE RATIO (test code = BUN/CREA) 18.5 10-20 N CALCIUM (test code = CA) 8.4 mg/dL 8.5-10.1 L BASIC METABOLIC [id number] 04:33:00* Test Item Value Reference Range Interpretation Comments SODIUM (test code = NA) 143 mmol/L 136-145 N POTASSIUM (test code = K) 3.8 mmol/L 3.5-5.1 N CHLORIDE (test code = CL) 102.0 mmol/L 98-107 N CARBON DIOXIDE (test code = CO2) mmol/L 21-32 ANION GAP (test code = GAP) 10-20 GLUCOSE (test code = GLU) mg/dL 74-106 BLOOD UREA NITROGEN (test code = BUN) mg/dL 7-18 GLOMERULAR FILTRATION RATE (test code = GFR) mL/min >=60 CREATININE (test code = CREAT) mg/dL 0.7-1.3 BUN/CREATININE RATIO (test code = BUN/CREA) 10-20 CALCIUM (test code = CA) mg/dL 8.5-10.1 CBC W/AUTO [id number] 04:26:00* Test Item Value Reference Range Interpretation Comments WHITE BLOOD CELL (test code = WBC) 4.9 K/mm3 4.5-12.5 N RED BLOOD CELL (test code = RBC) 3.82 mill/mm3 4.0-5.8 L HEMOGLOBIN (test code = HGB) 9.5 gram/dL 13.0-17.5 L HEMATOCRIT (test code = HCT) 33.5 % 42.0-52.0 L MEAN CELL VOLUME (test code = MCV) 87.7 fL 80-98 N MEAN CELL HGB (test code = MCH) 24.9 picogram 27.0-33.0 L MEAN CELL HGB CONCETRATION (test code = MCHC) 28.4 gram/dL 33.0-36. 0 L RED CELL DISTRIBUTION WIDTH (test code = RDW) 20.6 % 11.6-16. 2 H RED CELL DISTRIBUTION WIDTH SD (test code = RDW-SD) 64.8 fL 37 .0-51.0 H PLATELET COUNT (test code = PLT) 159 K/mm3 150-450 N MEAN PLATELET VOLUME (test code = MPV) 10.2 fL 6.7-11.0 N NEUTROPHIL % (test code = NT%) 65.6 % 39.0-69.0 N IMMATURE GRANULOCYTE % (test code = IG%) 1.2 % 0.0-5.0 N LYMPHOCYTE % (test code = LY%) 21.8 % 25.0-55.0 L MONOCYTE % (test code = MO%) 9.8 % 0.0-10.0 N EOSINOPHIL % (test code = EO%) 1.2 % 0.0-5.0 N BASOPHIL % (test code = BA%) 0.4 % 0.0-1.0 N NUCLEATED RBC % (test code = NRBC%) 0.4 % 0-0 H NEUTROPHIL # (test code = NT#) 3.22 K/mm3 1.8-7.7 N IMMATURE GRANULOCYTE # (test code = IG#) 0.06 x10 3/uL 0-0.03 H LYMPHOCYTE # (test code = LY#) 1.07 K/mm3 1.0-5.0 N MONOCYTE # (test code = MO#) 0.48 K/mm3 0-0.8 N EOSINOPHIL # (test code = EO#) 0.06 K/mm3 0.0-0.5 N BASOPHIL # (test code = BA#) 0.02 K/mm3 0.0-0.2 N NUCLEATED RBC # (test code = NRBC#) 0.02 K/mm3 0.0-0.1 N MANUAL DIFF REQUIRED (test code = MDIFF) NO, ONLY SCAN NEEDED DIFFERENTIAL [id number] 04:26:00* Test Item Value Reference Range Interpretation Comments STAIN ACCEPTABILITY (test code = STN ACCEPTABLE) CABOT RINGS (test code = CAB) MORPHOLOGY COMMENT (test code = MOC) PLATELET ESTIMATE (test code = PLTEST) PLATELET MORPHOLOGY (test code = PLTMORPH) CBC W/AUTO [id number] 04:26:00* Test Item Value Reference Range Interpretation Comments WHITE BLOOD CELL (test code = WBC) 4.9 K/mm3 4.5-12.5 N RED BLOOD CELL (test code = RBC) 3.82 mill/mm3 4.0-5.8 L HEMOGLOBIN (test code = HGB) 9.5 gram/dL 13.0-17.5 L HEMATOCRIT (test code = HCT) 33.5 % 42.0-52.0 L MEAN CELL VOLUME (test code = MCV) 87.7 fL 80-98 N MEAN CELL HGB (test code = MCH) 24.9 picogram 27.0-33.0 L MEAN CELL HGB CONCETRATION (test code = MCHC) 28.4 gram/dL 33.0-36. 0 L RED CELL DISTRIBUTION WIDTH (test code = RDW) 20.6 % 11.6-16. 2 H RED CELL DISTRIBUTION WIDTH SD (test code = RDW-SD) 64.8 fL 37 .0-51.0 H PLATELET COUNT (test code = PLT) 159 K/mm3 150-450 N MEAN PLATELET VOLUME (test code = MPV) 10.2 fL 6.7-11.0 N NEUTROPHIL % (test code = NT%) 65.6 % 39.0-69.0 N IMMATURE GRANULOCYTE % (test code = IG%) 1.2 % 0.0-5.0 N LYMPHOCYTE % (test code = LY%) 21.8 % 25.0-55.0 L MONOCYTE % (test code = MO%) 9.8 % 0.0-10.0 N EOSINOPHIL % (test code = EO%) 1.2 % 0.0-5.0 N BASOPHIL % (test code = BA%) 0.4 % 0.0-1.0 N NUCLEATED RBC % (test code = NRBC%) 0.4 % 0-0 H NEUTROPHIL # (test code = NT#) 3.22 K/mm3 1.8-7.7 N IMMATURE GRANULOCYTE # (test code = IG#) 0.06 x10 3/uL 0-0.03 H LYMPHOCYTE # (test code = LY#) 1.07 K/mm3 1.0-5.0 N MONOCYTE # (test code = MO#) 0.48 K/mm3 0-0.8 N EOSINOPHIL # (test code = EO#) 0.06 K/mm3 0.0-0.5 N BASOPHIL # (test code = BA#) 0.02 K/mm3 0.0-0.2 N NUCLEATED RBC # (test code = NRBC#) 0.02 K/mm3 0.0-0.1 N MANUAL DIFF REQUIRED (test code = MDIFF) NO, ONLY SCAN NEEDED DIFFERENTIAL [id number] 04:26:00* Test Item Value Reference Range Interpretation Comments STAIN ACCEPTABILITY (test code = STN ACCEPTABLE) CABOT RINGS (test code = CAB) MORPHOLOGY COMMENT (test code = MOC) PLATELET ESTIMATE (test code = PLTEST) PLATELET MORPHOLOGY (test code = PLTMORPH) CBC W/AUTO [id number] 04:26:00* Test Item Value Reference Range Interpretation Comments WHITE BLOOD CELL (test code = WBC) 4.9 K/mm3 4.5-12.5 N RED BLOOD CELL (test code = RBC) 3.82 mill/mm3 4.0-5.8 L HEMOGLOBIN (test code = HGB) 9.5 gram/dL 13.0-17.5 L HEMATOCRIT (test code = HCT) 33.5 % 42.0-52.0 L MEAN CELL VOLUME (test code = MCV) 87.7 fL 80-98 N MEAN CELL HGB (test code = MCH) 24.9 picogram 27.0-33.0 L MEAN CELL HGB CONCETRATION (test code = MCHC) 28.4 gram/dL 33.0-36. 0 L RED CELL DISTRIBUTION WIDTH (test code = RDW) 20.6 % 11.6-16. 2 H RED CELL DISTRIBUTION WIDTH SD (test code = RDW-SD) 64.8 fL 37 .0-51.0 H PLATELET COUNT (test code = PLT) 159 K/mm3 150-450 N MEAN PLATELET VOLUME (test code = MPV) 10.2 fL 6.7-11.0 N NEUTROPHIL % (test code = NT%) 65.6 % 39.0-69.0 N IMMATURE GRANULOCYTE % (test code = IG%) 1.2 % 0.0-5.0 N LYMPHOCYTE % (test code = LY%) 21.8 % 25.0-55.0 L MONOCYTE % (test code = MO%) 9.8 % 0.0-10.0 N EOSINOPHIL % (test code = EO%) 1.2 % 0.0-5.0 N BASOPHIL % (test code = BA%) 0.4 % 0.0-1.0 N NUCLEATED RBC % (test code = NRBC%) 0.4 % 0-0 H NEUTROPHIL # (test code = NT#) 3.22 K/mm3 1.8-7.7 N IMMATURE GRANULOCYTE # (test code = IG#) 0.06 x10 3/uL 0-0.03 H LYMPHOCYTE # (test code = LY#) 1.07 K/mm3 1.0-5.0 N MONOCYTE # (test code = MO#) 0.48 K/mm3 0-0.8 N EOSINOPHIL # (test code = EO#) 0.06 K/mm3 0.0-0.5 N BASOPHIL # (test code = BA#) 0.02 K/mm3 0.0-0.2 N NUCLEATED RBC # (test code = NRBC#) 0.02 K/mm3 0.0-0.1 N MANUAL DIFF REQUIRED (test code = MDIFF) NO, ONLY SCAN NEEDED DIFFERENTIAL [id number] 04:26:00* Test Item Value Reference Range Interpretation Comments STAIN ACCEPTABILITY (test code = STN ACCEPTABLE) MORPHOLOGY COMMENT (test code = MOC) PLATELET ESTIMATE (test code = PLTEST) PLATELET MORPHOLOGY (test code = PLTMORPH) CBC W/AUTO [id number] 04:26:00* Test Item Value Reference Range Interpretation Comments WHITE BLOOD CELL (test code = WBC) 4.9 K/mm3 4.5-12.5 N RED BLOOD CELL (test code = RBC) 3.82 mill/mm3 4.0-5.8 L HEMOGLOBIN (test code = HGB) 9.5 gram/dL 13.0-17.5 L HEMATOCRIT (test code = HCT) 33.5 % 42.0-52.0 L MEAN CELL VOLUME (test code = MCV) 87.7 fL 80-98 N MEAN CELL HGB (test code = MCH) 24.9 picogram 27.0-33.0 L MEAN CELL HGB CONCETRATION (test code = MCHC) 28.4 gram/dL 33.0-36. 0 L RED CELL DISTRIBUTION WIDTH (test code = RDW) 20.6 % 11.6-16. 2 H RED CELL DISTRIBUTION WIDTH SD (test code = RDW-SD) 64.8 fL 37 .0-51.0 H PLATELET COUNT (test code = PLT) 159 K/mm3 150-450 N MEAN PLATELET VOLUME (test code = MPV) 10.2 fL 6.7-11.0 N NEUTROPHIL % (test code = NT%) 65.6 % 39.0-69.0 N IMMATURE GRANULOCYTE % (test code = IG%) 1.2 % 0.0-5.0 N LYMPHOCYTE % (test code = LY%) 21.8 % 25.0-55.0 L MONOCYTE % (test code = MO%) 9.8 % 0.0-10.0 N EOSINOPHIL % (test code = EO%) 1.2 % 0.0-5.0 N BASOPHIL % (test code = BA%) 0.4 % 0.0-1.0 N NUCLEATED RBC % (test code = NRBC%) 0.4 % 0-0 H NEUTROPHIL # (test code = NT#) 3.22 K/mm3 1.8-7.7 N IMMATURE GRANULOCYTE # (test code = IG#) 0.06 x10 3/uL 0-0.03 H LYMPHOCYTE # (test code = LY#) 1.07 K/mm3 1.0-5.0 N MONOCYTE # (test code = MO#) 0.48 K/mm3 0-0.8 N EOSINOPHIL # (test code = EO#) 0.06 K/mm3 0.0-0.5 N BASOPHIL # (test code = BA#) 0.02 K/mm3 0.0-0.2 N NUCLEATED RBC # (test code = NRBC#) 0.02 K/mm3 0.0-0.1 N MANUAL DIFF REQUIRED (test code = MDIFF) NO, ONLY SCAN NEEDED DIFFERENTIAL [id number] 04:26:00* Test Item Value Reference Range Interpretation Comments STAIN ACCEPTABILITY (test code = STN ACCEPTABLE) CABOT RINGS (test code = CAB) MORPHOLOGY COMMENT (test code = MOC) PLATELET ESTIMATE (test code = PLTEST) PLATELET MORPHOLOGY (test code = PLTMORPH) [id number] 20:04:00* Test Item Value Reference Range Interpretation Comments GLUBED (test code = GLUBED) 118 mg/dL 74-106 H Performed by certified winchman/crane operator at [facility] [id number] 16:46:00* Test Item Value Reference Range Interpretation Comments GLUBED (test code = GLUBED) 123 mg/dL 74-106 H Performed by certified winchman/crane operator at [facility] [id number] 12:44:00* Test Item Value Reference Range Interpretation Comments GLUBED (test code = GLUBED) 98 mg/dL 74-106 N Performed by certified winchman/crane operator at [facility] BASIC METABOLIC [id number] 09:25:00* Test Item Value Reference Range Interpretation Comments SODIUM (test code = NA) 142 mmol/L 136-145 N POTASSIUM (test code = K) 3.8 mmol/L 3.5-5.1 N CHLORIDE (test code = CL) 103.0 mmol/L 98-107 N CARBON DIOXIDE (test code = CO2) 36.0 mmol/L 21-32 H ANION GAP (test code = GAP) 6.8 10-20 L GLUCOSE (test code = GLU) 206 mg/dL 74-106 H BLOOD UREA NITROGEN (test code = BUN) 24 mg/dL 7-18 H GLOMERULAR FILTRATION RATE (test code = GFR) 54 mL/min >=60 Estimated GFR by using Modified MDRD formula.Chronic kidney disease is defined as either kidney damageor GFR <60 mL/min/1.73 m2 for >3 months. CREATININE (test code = CREAT) 1.30 mg/dL 0.7-1.3 N BUN/CREATININE RATIO (test code = BUN/CREA) 18.5 10-20 N CALCIUM (test code = CA) 8.1 mg/dL 8.5-10.1 L BASIC METABOLIC [id number] 09:22:00* Test Item Value Reference Range Interpretation Comments SODIUM (test code = NA) 142 mmol/L 136-145 N POTASSIUM (test code = K) 3.8 mmol/L 3.5-5.1 N CHLORIDE (test code = CL) 103.0 mmol/L 98-107 N CARBON DIOXIDE (test code = CO2) mmol/L 21-32 ANION GAP (test code = GAP) 10-20 GLUCOSE (test code = GLU) mg/dL 74-106 BLOOD UREA NITROGEN (test code = BUN) mg/dL 7-18 GLOMERULAR FILTRATION RATE (test code = GFR) mL/min >=60 CREATININE (test code = CREAT) mg/dL 0.7-1.3 BUN/CREATININE RATIO (test code = BUN/CREA) 10-20 CALCIUM (test code = CA) mg/dL 8.5-10.1 [id number] 07:41:00* Test Item Value Reference Range Interpretation Comments GLUBED (test code = GLUBED) 189 mg/dL 74-106 H Performed by certified winchman/crane operator at [facility] [id number] 07:41:00* Test Item Value Reference Range Interpretation Comments GLUBED (test code = GLUBED) 24 mg/dL 74-106 LL Test performed as P.O.C. by nursing staff.Performed by certified winchman/crane operator at [facility] LACTIC [id number] 23:39:00* Test Item Value Reference Range Interpretation Comments LACTIC ACID (test code = LACT) 1.8 mmol/L 0.4-1.9 N [id number] 23:25:00* Test Item Value Reference Range Interpretation Comments POTASSIUM (test code = K) 3.8 mmol/L 3.5-5.1 N [id number] 23:25:00* Test Item Value Reference Range Interpretation Comments MAGNESIUM (test code = MAG) 2.0 mg/dL 1.8-2.4 N [id number] 23:24:00* Test Item Value Reference Range Interpretation Comments POTASSIUM (test code = K) 3.8 mmol/L 3.5-5.1 N [id number] 23:24:00* Test Item Value Reference Range Interpretation Comments MAGNESIUM (test code = MAG) mg/dL 1.8-2.4 CBC W/AUTO [id number] 06:16:00* Test Item Value Reference Range Interpretation Comments WHITE BLOOD CELL (test code = WBC) 4.3 K/mm3 4.5-12.5 L RED BLOOD CELL (test code = RBC) 3.73 mill/mm3 4.0-5.8 L HEMOGLOBIN (test code = HGB) 9.5 gram/dL 13.0-17.5 L HEMATOCRIT (test code = HCT) 32.4 % 42.0-52.0 L MEAN CELL VOLUME (test code = MCV) 86.9 fL 80-98 N MEAN CELL HGB (test code = MCH) 25.5 picogram 27.0-33.0 L MEAN CELL HGB CONCETRATION (test code = MCHC) 29.3 gram/dL 33.0-36. 0 L RED CELL DISTRIBUTION WIDTH (test code = RDW) 20.8 % 11.6-16. 2 H RED CELL DISTRIBUTION WIDTH SD (test code = RDW-SD) 63.7 fL 37 .0-51.0 H PLATELET COUNT (test code = PLT) 135 K/mm3 150-450 L MEAN PLATELET VOLUME (test code = MPV) 9.6 fL 6.7-11.0 N NEUTROPHIL % (test code = NT%) 66.8 % 39.0-69.0 N IMMATURE GRANULOCYTE % (test code = IG%) 1.4 % 0.0-5.0 N LYMPHOCYTE % (test code = LY%) 18.8 % 25.0-55.0 L MONOCYTE % (test code = MO%) 11.1 % 0.0-10.0 H EOSINOPHIL % (test code = EO%) 1.4 % 0.0-5.0 N BASOPHIL % (test code = BA%) 0.5 % 0.0-1.0 N NUCLEATED RBC % (test code = NRBC%) 0.5 % 0-0 H NEUTROPHIL # (test code = NT#) 2.88 K/mm3 1.8-7.7 N IMMATURE GRANULOCYTE # (test code = IG#) 0.06 x10 3/uL 0-0.03 H LYMPHOCYTE # (test code = LY#) 0.81 K/mm3 1.0-5.0 L MONOCYTE # (test code = MO#) 0.48 K/mm3 0-0.8 N EOSINOPHIL # (test code = EO#) 0.06 K/mm3 0.0-0.5 N BASOPHIL # (test code = BA#) 0.02 K/mm3 0.0-0.2 N NUCLEATED RBC # (test code = NRBC#) 0.02 K/mm3 0.0-0.1 N MANUAL DIFF REQUIRED (test code = MDIFF) NO, ONLY SCAN NEEDED DIFFERENTIAL [id number] 06:16:00* Test Item Value Reference Range Interpretation Comments STAIN ACCEPTABILITY (test code = STN ACCEPTABLE) STAIN ACCEPTABLE ANISOCYTOSIS (test code = ANISO) 1+ MICROCYTOSIS (test code = MICR) 1+ PLATELET ESTIMATE (test code = PLTEST) DECREASED PLATELET MORPHOLOGY (test code = PLTMORPH) NORMAL BASIC METABOLIC [id number] 05:59:00* Test Item Value Reference Range Interpretation Comments SODIUM (test code = NA) 142 mmol/L 136-145 N POTASSIUM (test code = K) 3.4 mmol/L 3.5-5.1 L CHLORIDE (test code = CL) 102.0 mmol/L 98-107 N CARBON DIOXIDE (test code = CO2) 35.0 mmol/L 21-32 H ANION GAP (test code = GAP) 8.4 10-20 L GLUCOSE (test code = GLU) 105 mg/dL 74-106 N BLOOD UREA NITROGEN (test code = BUN) 30 mg/dL 7-18 H GLOMERULAR FILTRATION RATE (test code = GFR) 59 mL/min >=60 Estimated GFR by using Modified MDRD formula.Chronic kidney disease is defined as either kidney damageor GFR <60 mL/min/1.73 m2 for >3 months. CREATININE (test code = CREAT) 1.20 mg/dL 0.7-1.3 N BUN/CREATININE RATIO (test code = BUN/CREA) 25.0 10-20 H CALCIUM (test code = CA) 8.2 mg/dL 8.5-10.1 L [id number] 05:59:00* Test Item Value Reference Range Interpretation Comments MAGNESIUM (test code = MAG) 2.2 mg/dL 1.8-2.4 N BASIC METABOLIC [id number] 05:54:00* Test Item Value Reference Range Interpretation Comments SODIUM (test code = NA) 142 mmol/L 136-145 N POTASSIUM (test code = K) 3.4 mmol/L 3.5-5.1 L CHLORIDE (test code = CL) 102.0 mmol/L 98-107 N CARBON DIOXIDE (test code = CO2) mmol/L 21-32 ANION GAP (test code = GAP) 10-20 GLUCOSE (test code = GLU) mg/dL 74-106 BLOOD UREA NITROGEN (test code = BUN) mg/dL 7-18 GLOMERULAR FILTRATION RATE (test code = GFR) mL/min >=60 CREATININE (test code = CREAT) mg/dL 0.7-1.3 BUN/CREATININE RATIO (test code = BUN/CREA) 10-20 CALCIUM (test code = CA) mg/dL 8.5-10.1 [id number] 05:54:00* Test Item Value Reference Range Interpretation Comments MAGNESIUM (test code = MAG) mg/dL 1.8-2.4 CBC W/AUTO [id number] 05:49:00* Test Item Value Reference Range Interpretation Comments WHITE BLOOD CELL (test code = WBC) 4.3 K/mm3 4.5-12.5 L RED BLOOD CELL (test code = RBC) 3.73 mill/mm3 4.0-5.8 L HEMOGLOBIN (test code = HGB) 9.5 gram/dL 13.0-17.5 L HEMATOCRIT (test code = HCT) 32.4 % 42.0-52.0 L MEAN CELL VOLUME (test code = MCV) 86.9 fL 80-98 N MEAN CELL HGB (test code = MCH) 25.5 picogram 27.0-33.0 L MEAN CELL HGB CONCETRATION (test code = MCHC) 29.3 gram/dL 33.0-36. 0 L RED CELL DISTRIBUTION WIDTH (test code = RDW) 20.8 % 11.6-16. 2 H RED CELL DISTRIBUTION WIDTH SD (test code = RDW-SD) 63.7 fL 37 .0-51.0 H PLATELET COUNT (test code = PLT) 135 K/mm3 150-450 L MEAN PLATELET VOLUME (test code = MPV) 9.6 fL 6.7-11.0 N NEUTROPHIL % (test code = NT%) 66.8 % 39.0-69.0 N IMMATURE GRANULOCYTE % (test code = IG%) 1.4 % 0.0-5.0 N LYMPHOCYTE % (test code = LY%) 18.8 % 25.0-55.0 L MONOCYTE % (test code = MO%) 11.1 % 0.0-10.0 H EOSINOPHIL % (test code = EO%) 1.4 % 0.0-5.0 N BASOPHIL % (test code = BA%) 0.5 % 0.0-1.0 N NUCLEATED RBC % (test code = NRBC%) 0.5 % 0-0 H NEUTROPHIL # (test code = NT#) 2.88 K/mm3 1.8-7.7 N IMMATURE GRANULOCYTE # (test code = IG#) 0.06 x10 3/uL 0-0.03 H LYMPHOCYTE # (test code = LY#) 0.81 K/mm3 1.0-5.0 L MONOCYTE # (test code = MO#) 0.48 K/mm3 0-0.8 N EOSINOPHIL # (test code = EO#) 0.06 K/mm3 0.0-0.5 N BASOPHIL # (test code = BA#) 0.02 K/mm3 0.0-0.2 N NUCLEATED RBC # (test code = NRBC#) 0.02 K/mm3 0.0-0.1 N MANUAL DIFF REQUIRED (test code = MDIFF) NO, ONLY SCAN NEEDED DIFFERENTIAL [id number] 05:49:00* Test Item Value Reference Range Interpretation Comments STAIN ACCEPTABILITY (test code = STN ACCEPTABLE) CABOT RINGS (test code = CAB) MORPHOLOGY COMMENT (test code = MOC) PLATELET ESTIMATE (test code = PLTEST) PLATELET MORPHOLOGY (test code = PLTMORPH) CBC W/AUTO [id number] 05:49:00* Test Item Value Reference Range Interpretation Comments WHITE BLOOD CELL (test code = WBC) 4.3 K/mm3 4.5-12.5 L RED BLOOD CELL (test code = RBC) 3.73 mill/mm3 4.0-5.8 L HEMOGLOBIN (test code = HGB) 9.5 gram/dL 13.0-17.5 L HEMATOCRIT (test code = HCT) 32.4 % 42.0-52.0 L MEAN CELL VOLUME (test code = MCV) 86.9 fL 80-98 N MEAN CELL HGB (test code = MCH) 25.5 picogram 27.0-33.0 L MEAN CELL HGB CONCETRATION (test code = MCHC) 29.3 gram/dL 33.0-36. 0 L RED CELL DISTRIBUTION WIDTH (test code = RDW) 20.8 % 11.6-16. 2 H RED CELL DISTRIBUTION WIDTH SD (test code = RDW-SD) 63.7 fL 37 .0-51.0 H PLATELET COUNT (test code = PLT) 135 K/mm3 150-450 L MEAN PLATELET VOLUME (test code = MPV) 9.6 fL 6.7-11.0 N NEUTROPHIL % (test code = NT%) 66.8 % 39.0-69.0 N IMMATURE GRANULOCYTE % (test code = IG%) 1.4 % 0.0-5.0 N LYMPHOCYTE % (test code = LY%) 18.8 % 25.0-55.0 L MONOCYTE % (test code = MO%) 11.1 % 0.0-10.0 H EOSINOPHIL % (test code = EO%) 1.4 % 0.0-5.0 N BASOPHIL % (test code = BA%) 0.5 % 0.0-1.0 N NUCLEATED RBC % (test code = NRBC%) 0.5 % 0-0 H NEUTROPHIL # (test code = NT#) 2.88 K/mm3 1.8-7.7 N IMMATURE GRANULOCYTE # (test code = IG#) 0.06 x10 3/uL 0-0.03 H LYMPHOCYTE # (test code = LY#) 0.81 K/mm3 1.0-5.0 L MONOCYTE # (test code = MO#) 0.48 K/mm3 0-0.8 N EOSINOPHIL # (test code = EO#) 0.06 K/mm3 0.0-0.5 N BASOPHIL # (test code = BA#) 0.02 K/mm3 0.0-0.2 N NUCLEATED RBC # (test code = NRBC#) 0.02 K/mm3 0.0-0.1 N MANUAL DIFF REQUIRED (test code = MDIFF) NO, ONLY SCAN NEEDED DIFFERENTIAL [id number] 05:49:00* Test Item Value Reference Range Interpretation Comments STAIN ACCEPTABILITY (test code = STN ACCEPTABLE) CABOT RINGS (test code = CAB) MORPHOLOGY COMMENT (test code = MOC) PLATELET ESTIMATE (test code = PLTEST) PLATELET MORPHOLOGY (test code = PLTMORPH) CBC W/AUTO [id number] 05:49:00* Test Item Value Reference Range Interpretation Comments WHITE BLOOD CELL (test code = WBC) 4.3 K/mm3 4.5-12.5 L RED BLOOD CELL (test code = RBC) 3.73 mill/mm3 4.0-5.8 L HEMOGLOBIN (test code = HGB) 9.5 gram/dL 13.0-17.5 L HEMATOCRIT (test code = HCT) 32.4 % 42.0-52.0 L MEAN CELL VOLUME (test code = MCV) 86.9 fL 80-98 N MEAN CELL HGB (test code = MCH) 25.5 picogram 27.0-33.0 L MEAN CELL HGB CONCETRATION (test code = MCHC) 29.3 gram/dL 33.0-36. 0 L RED CELL DISTRIBUTION WIDTH (test code = RDW) 20.8 % 11.6-16. 2 H RED CELL DISTRIBUTION WIDTH SD (test code = RDW-SD) 63.7 fL 37 .0-51.0 H PLATELET COUNT (test code = PLT) 135 K/mm3 150-450 L MEAN PLATELET VOLUME (test code = MPV) 9.6 fL 6.7-11.0 N NEUTROPHIL % (test code = NT%) 66.8 % 39.0-69.0 N IMMATURE GRANULOCYTE % (test code = IG%) 1.4 % 0.0-5.0 N LYMPHOCYTE % (test code = LY%) 18.8 % 25.0-55.0 L MONOCYTE % (test code = MO%) 11.1 % 0.0-10.0 H EOSINOPHIL % (test code = EO%) 1.4 % 0.0-5.0 N BASOPHIL % (test code = BA%) 0.5 % 0.0-1.0 N NUCLEATED RBC % (test code = NRBC%) 0.5 % 0-0 H NEUTROPHIL # (test code = NT#) 2.88 K/mm3 1.8-7.7 N IMMATURE GRANULOCYTE # (test code = IG#) 0.06 x10 3/uL 0-0.03 H LYMPHOCYTE # (test code = LY#) 0.81 K/mm3 1.0-5.0 L MONOCYTE # (test code = MO#) 0.48 K/mm3 0-0.8 N EOSINOPHIL # (test code = EO#) 0.06 K/mm3 0.0-0.5 N BASOPHIL # (test code = BA#) 0.02 K/mm3 0.0-0.2 N NUCLEATED RBC # (test code = NRBC#) 0.02 K/mm3 0.0-0.1 N MANUAL DIFF REQUIRED (test code = MDIFF) NO, ONLY SCAN NEEDED DIFFERENTIAL [id number] 05:49:00* Test Item Value Reference Range Interpretation Comments STAIN ACCEPTABILITY (test code = STN ACCEPTABLE) MORPHOLOGY COMMENT (test code = MOC) PLATELET ESTIMATE (test code = PLTEST) PLATELET MORPHOLOGY (test code = PLTMORPH) CBC W/AUTO [id number] 05:49:00* Test Item Value Reference Range Interpretation Comments WHITE BLOOD CELL (test code = WBC) 4.3 K/mm3 4.5-12.5 L RED BLOOD CELL (test code = RBC) 3.73 mill/mm3 4.0-5.8 L HEMOGLOBIN (test code = HGB) 9.5 gram/dL 13.0-17.5 L HEMATOCRIT (test code = HCT) 32.4 % 42.0-52.0 L MEAN CELL VOLUME (test code = MCV) 86.9 fL 80-98 N MEAN CELL HGB (test code = MCH) 25.5 picogram 27.0-33.0 L MEAN CELL HGB CONCETRATION (test code = MCHC) 29.3 gram/dL 33.0-36. 0 L RED CELL DISTRIBUTION WIDTH (test code = RDW) 20.8 % 11.6-16. 2 H RED CELL DISTRIBUTION WIDTH SD (test code = RDW-SD) 63.7 fL 37 .0-51.0 H PLATELET COUNT (test code = PLT) 135 K/mm3 150-450 L MEAN PLATELET VOLUME (test code = MPV) 9.6 fL 6.7-11.0 N NEUTROPHIL % (test code = NT%) 66.8 % 39.0-69.0 N IMMATURE GRANULOCYTE % (test code = IG%) 1.4 % 0.0-5.0 N LYMPHOCYTE % (test code = LY%) 18.8 % 25.0-55.0 L MONOCYTE % (test code = MO%) 11.1 % 0.0-10.0 H EOSINOPHIL % (test code = EO%) 1.4 % 0.0-5.0 N BASOPHIL % (test code = BA%) 0.5 % 0.0-1.0 N NUCLEATED RBC % (test code = NRBC%) 0.5 % 0-0 H NEUTROPHIL # (test code = NT#) 2.88 K/mm3 1.8-7.7 N IMMATURE GRANULOCYTE # (test code = IG#) 0.06 x10 3/uL 0-0.03 H LYMPHOCYTE # (test code = LY#) 0.81 K/mm3 1.0-5.0 L MONOCYTE # (test code = MO#) 0.48 K/mm3 0-0.8 N EOSINOPHIL # (test code = EO#) 0.06 K/mm3 0.0-0.5 N BASOPHIL # (test code = BA#) 0.02 K/mm3 0.0-0.2 N NUCLEATED RBC # (test code = NRBC#) 0.02 K/mm3 0.0-0.1 N MANUAL DIFF REQUIRED (test code = MDIFF) NO, ONLY SCAN NEEDED DIFFERENTIAL [id number] 05:49:00* Test Item Value Reference Range Interpretation Comments STAIN ACCEPTABILITY (test code = STN ACCEPTABLE) CABOT RINGS (test code = CAB) MORPHOLOGY COMMENT (test code = MOC) PLATELET ESTIMATE (test code = PLTEST) PLATELET MORPHOLOGY (test code = PLTMORPH) - XR ABDOMEN AP 1 [id number] 22:21:00 FAX: Rosalie Weathers MD [place]: St: ADM FAX: Teofilo Poon MD [phone] FAX: Sofia León NP [phone] Name: [facility] : 1945 Age/S: 74/M [address] [facility]: [id number] Loc: V.[address] [place] [address] Phys: Sofia León NP Acct: [id number] Dis Date: Status: ADM IN [facility] #: [phone] Exam Date: 11/22/20191807 FAX #: [phone] Reason: abdominal pain EXAMS: CPT CODE: [id number] XR ABDOMEN AP 1 V [id number] EXAM: Abdomen, 2 views; INFORMATION: Abdominal pain; IMPRESSION: 1. Large amount of stool in the descending transverse and proximal descending colon; 2. Otherwise, unremarkable bowel gas pattern; no e vidence of obstruction or other acute abnormalities. 3. No abnor mal calcifications. Location code: [facility] El ectronically Signed by Elroy Huff on 11/22 at 2221 Reported and signed by: Isaiah Huff M.D. CC: Rosalie Short; Teofilo Summers MD; Sofia Saavedra NP Technologist: FANTASMA HutsonR Trnscrd Date/Time/By: 11/22/2019 (2221) : By: TyroneGRW Orig Print D/T: S: 11/22/2019 (4148) PAGE 1 Signed Report [id number] 16:22:00* Test Item Value Reference Range Interpretation Comments GLUBED (test code = GLUBED) 101 mg/dL 74-106 N [facility] [id number] 12:23:00* Test Item Value Reference Range Interpretation Comments GLUBED (test code = GLUBED) 106 mg/dL 74-106 N Performed by certified winchman/crane operator at [facility] [id number] 08:34:00* Test Item Value Reference Range Interpretation Comments GLUBED (test code = GLUBED) 75 mg/dL 74-106 N Performed by certified winchman/crane operator at [facility] BLOOD UREA [id number] 05:39:00* Test Item Value Reference Range Interpretation Comments BLOOD UREA NITROGEN (test code = BUN) 39 mg/dL 7-18 H [id number] 05:39:00* Test Item Value Reference Range Interpretation Comments CREATININE (test code = CREAT) 1.40 mg/dL 0.7-1.3 H BLOOD UREA [id number] 05:34:00* Test Item Value Reference Range Interpretation Comments BLOOD UREA NITROGEN (test code = BUN) 39 mg/dL 7-18 H [id number] 05:34:00* Test Item Value Reference Range Interpretation Comments CREATININE (test code = CREAT) mg/dL 0.7-1.3 [id number] 21:18:00* Test Item Value Reference Range Interpretation Comments GLUBED (test code = GLUBED) 143 mg/dL 74-106 H Performed by certified winchman/crane operator at [facility] [id number] 16:14:00* Test Item Value Reference Range Interpretation Comments GLUBED (test code = GLUBED) 120 mg/dL 74-106 H Performed by certified winchman/crane operator at [facility] [id number] 16:14:00* Test Item Value Reference Range Interpretation Comments GLUBED (test code = GLUBED) 123 mg/dL 74-106 H Performed by certified winchman/crane operator at [facility] [id number] 08:04:00* Test Item Value Reference Range Interpretation Comments GLUBED (test code = GLUBED) 122 mg/dL 74-106 H Performed by certified winchman/crane operator at [facility] BASIC METABOLIC [id number] 06:42:00* Test Item Value Reference Range Interpretation Comments SODIUM (test code = NA) 142 mmol/L 136-145 N POTASSIUM (test code = K) 4.7 mmol/L 3.5-5.1 N CHLORIDE (test code = CL) 102.0 mmol/L 98-107 N CARBON DIOXIDE (test code = CO2) 36.0 mmol/L 21-32 H ANION GAP (test code = GAP) 8.7 10-20 L GLUCOSE (test code = GLU) 183 mg/dL 74-106 H BLOOD UREA NITROGEN (test code = BUN) 42 mg/dL 7-18 H GLOMERULAR FILTRATION RATE (test code = GFR) 42 mL/min >=60 Estimated GFR by using Modified MDRD formula.Chronic kidney disease is defined as either kidney damageor GFR <60 mL/min/1.73 m2 for >3 months. CREATININE (test code = CREAT) 1.60 mg/dL 0.7-1.3 H BUN/CREATININE RATIO (test code = BUN/CREA) 26.3 10-20 H CALCIUM (test code = CA) 8.7 mg/dL 8.5-10.1 N BASIC METABOLIC [id number] 06:37:00* Test Item Value Reference Range Interpretation Comments SODIUM (test code = NA) 142 mmol/L 136-145 N POTASSIUM (test code = K) 4.7 mmol/L 3.5-5.1 N CHLORIDE (test code = CL) 102.0 mmol/L 98-107 N CARBON DIOXIDE (test code = CO2) mmol/L 21-32 ANION GAP (test code = GAP) 10-20 GLUCOSE (test code = GLU) mg/dL 74-106 BLOOD UREA NITROGEN (test code = BUN) mg/dL 7-18 GLOMERULAR FILTRATION RATE (test code = GFR) mL/min >=60 CREATININE (test code = CREAT) mg/dL 0.7-1.3 BUN/CREATININE RATIO (test code = BUN/CREA) 10-20 CALCIUM (test code = CA) mg/dL 8.5-10.1 CBC W/AUTO [id number] 06:33:00* Test Item Value Reference Range Interpretation Comments WHITE BLOOD CELL (test code = WBC) 6.0 K/mm3 4.5-12.5 N RED BLOOD CELL (test code = RBC) 4.31 mill/mm3 4.0-5.8 N HEMOGLOBIN (test code = HGB) 10.7 gram/dL 13.0-17.5 L HEMATOCRIT (test code = HCT) 37.8 % 42.0-52.0 L MEAN CELL VOLUME (test code = MCV) 87.7 fL 80-98 N MEAN CELL HGB (test code = MCH) 24.8 picogram 27.0-33.0 L MEAN CELL HGB CONCETRATION (test code = MCHC) 28.3 gram/dL 33.0-36. 0 L RED CELL DISTRIBUTION WIDTH (test code = RDW) 21.0 % 11.6-16. 2 H RED CELL DISTRIBUTION WIDTH SD (test code = RDW-SD) 63.7 fL 37 .0-51.0 H PLATELET COUNT (test code = PLT) 162 K/mm3 150-450 N MEAN PLATELET VOLUME (test code = MPV) 10.2 fL 6.7-11.0 N NEUTROPHIL % (test code = NT%) 73.4 % 39.0-69.0 H IMMATURE GRANULOCYTE % (test code = IG%) 1.3 % 0.0-5.0 N LYMPHOCYTE % (test code = LY%) 15.2 % 25.0-55.0 L MONOCYTE % (test code = MO%) 8.6 % 0.0-10.0 N EOSINOPHIL % (test code = EO%) 1.2 % 0.0-5.0 N BASOPHIL % (test code = BA%) 0.3 % 0.0-1.0 N NUCLEATED RBC % (test code = NRBC%) 0.5 % 0-0 H NEUTROPHIL # (test code = NT#) 4.43 K/mm3 1.8-7.7 N IMMATURE GRANULOCYTE # (test code = IG#) 0.08 x10 3/uL 0-0.03 H LYMPHOCYTE # (test code = LY#) 0.92 K/mm3 1.0-5.0 L MONOCYTE # (test code = MO#) 0.52 K/mm3 0-0.8 N EOSINOPHIL # (test code = EO#) 0.07 K/mm3 0.0-0.5 N BASOPHIL # (test code = BA#) 0.02 K/mm3 0.0-0.2 N NUCLEATED RBC # (test code = NRBC#) 0.03 K/mm3 0.0-0.1 N MANUAL DIFF REQUIRED (test code = MDIFF) NO, ONLY SCAN NEEDED DIFFERENTIAL [id number] 06:33:00* Test Item Value Reference Range Interpretation Comments STAIN ACCEPTABILITY (test code = STN ACCEPTABLE) STAIN ACCEPTABLE POLYCHROMASIA (test code = POLC) 1+ POIKILOCYTOSIS (test code = POIK) 1+ ANISOCYTOSIS (test code = ANISO) 1+ MICROCYTOSIS (test code = MICR) 1+ ELLIPTOCYTES (test code = ELL) 1+ PLATELET ESTIMATE (test code = PLTEST) ADEQUATE PLATELET MORPHOLOGY (test code = PLTMORPH) NORMAL CBC W/AUTO [id number] 06:13:00* Test Item Value Reference Range Interpretation Comments WHITE BLOOD CELL (test code = WBC) 6.0 K/mm3 4.5-12.5 N RED BLOOD CELL (test code = RBC) 4.31 mill/mm3 4.0-5.8 N HEMOGLOBIN (test code = HGB) 10.7 gram/dL 13.0-17.5 L HEMATOCRIT (test code = HCT) 37.8 % 42.0-52.0 L MEAN CELL VOLUME (test code = MCV) 87.7 fL 80-98 N MEAN CELL HGB (test code = MCH) 24.8 picogram 27.0-33.0 L MEAN CELL HGB CONCETRATION (test code = MCHC) 28.3 gram/dL 33.0-36. 0 L RED CELL DISTRIBUTION WIDTH (test code = RDW) 21.0 % 11.6-16. 2 H RED CELL DISTRIBUTION WIDTH SD (test code = RDW-SD) 63.7 fL 37 .0-51.0 H PLATELET COUNT (test code = PLT) 162 K/mm3 150-450 N MEAN PLATELET VOLUME (test code = MPV) 10.2 fL 6.7-11.0 N NEUTROPHIL % (test code = NT%) 73.4 % 39.0-69.0 H IMMATURE GRANULOCYTE % (test code = IG%) 1.3 % 0.0-5.0 N LYMPHOCYTE % (test code = LY%) 15.2 % 25.0-55.0 L MONOCYTE % (test code = MO%) 8.6 % 0.0-10.0 N EOSINOPHIL % (test code = EO%) 1.2 % 0.0-5.0 N BASOPHIL % (test code = BA%) 0.3 % 0.0-1.0 N NUCLEATED RBC % (test code = NRBC%) 0.5 % 0-0 H NEUTROPHIL # (test code = NT#) 4.43 K/mm3 1.8-7.7 N IMMATURE GRANULOCYTE # (test code = IG#) 0.08 x10 3/uL 0-0.03 H LYMPHOCYTE # (test code = LY#) 0.92 K/mm3 1.0-5.0 L MONOCYTE # (test code = MO#) 0.52 K/mm3 0-0.8 N EOSINOPHIL # (test code = EO#) 0.07 K/mm3 0.0-0.5 N BASOPHIL # (test code = BA#) 0.02 K/mm3 0.0-0.2 N NUCLEATED RBC # (test code = NRBC#) 0.03 K/mm3 0.0-0.1 N MANUAL DIFF REQUIRED (test code = MDIFF) NO, ONLY SCAN NEEDED DIFFERENTIAL [id number] 06:13:00* Test Item Value Reference Range Interpretation Comments STAIN ACCEPTABILITY (test code = STN ACCEPTABLE) CABOT RINGS (test code = CAB) MORPHOLOGY COMMENT (test code = MOC) PLATELET ESTIMATE (test code = PLTEST) PLATELET MORPHOLOGY (test code = PLTMORPH) CBC W/AUTO [id number] 06:13:00* Test Item Value Reference Range Interpretation Comments WHITE BLOOD CELL (test code = WBC) 6.0 K/mm3 4.5-12.5 N RED BLOOD CELL (test code = RBC) 4.31 mill/mm3 4.0-5.8 N HEMOGLOBIN (test code = HGB) 10.7 gram/dL 13.0-17.5 L HEMATOCRIT (test code = HCT) 37.8 % 42.0-52.0 L MEAN CELL VOLUME (test code = MCV) 87.7 fL 80-98 N MEAN CELL HGB (test code = MCH) 24.8 picogram 27.0-33.0 L MEAN CELL HGB CONCETRATION (test code = MCHC) 28.3 gram/dL 33.0-36. 0 L RED CELL DISTRIBUTION WIDTH (test code = RDW) 21.0 % 11.6-16. 2 H RED CELL DISTRIBUTION WIDTH SD (test code = RDW-SD) 63.7 fL 37 .0-51.0 H PLATELET COUNT (test code = PLT) 162 K/mm3 150-450 N MEAN PLATELET VOLUME (test code = MPV) 10.2 fL 6.7-11.0 N NEUTROPHIL % (test code = NT%) 73.4 % 39.0-69.0 H IMMATURE GRANULOCYTE % (test code = IG%) 1.3 % 0.0-5.0 N LYMPHOCYTE % (test code = LY%) 15.2 % 25.0-55.0 L MONOCYTE % (test code = MO%) 8.6 % 0.0-10.0 N EOSINOPHIL % (test code = EO%) 1.2 % 0.0-5.0 N BASOPHIL % (test code = BA%) 0.3 % 0.0-1.0 N NUCLEATED RBC % (test code = NRBC%) 0.5 % 0-0 H NEUTROPHIL # (test code = NT#) 4.43 K/mm3 1.8-7.7 N IMMATURE GRANULOCYTE # (test code = IG#) 0.08 x10 3/uL 0-0.03 H LYMPHOCYTE # (test code = LY#) 0.92 K/mm3 1.0-5.0 L MONOCYTE # (test code = MO#) 0.52 K/mm3 0-0.8 N EOSINOPHIL # (test code = EO#) 0.07 K/mm3 0.0-0.5 N BASOPHIL # (test code = BA#) 0.02 K/mm3 0.0-0.2 N NUCLEATED RBC # (test code = NRBC#) 0.03 K/mm3 0.0-0.1 N MANUAL DIFF REQUIRED (test code = MDIFF) NO, ONLY SCAN NEEDED DIFFERENTIAL [id number] 06:13:00* Test Item Value Reference Range Interpretation Comments STAIN ACCEPTABILITY (test code = STN ACCEPTABLE) MORPHOLOGY COMMENT (test code = MOC) PLATELET ESTIMATE (test code = PLTEST) PLATELET MORPHOLOGY (test code = PLTMORPH) CBC W/AUTO [id number] 06:12:00* Test Item Value Reference Range Interpretation Comments WHITE BLOOD CELL (test code = WBC) 6.0 K/mm3 4.5-12.5 N RED BLOOD CELL (test code = RBC) 4.31 mill/mm3 4.0-5.8 N HEMOGLOBIN (test code = HGB) 10.7 gram/dL 13.0-17.5 L HEMATOCRIT (test code = HCT) 37.8 % 42.0-52.0 L MEAN CELL VOLUME (test code = MCV) 87.7 fL 80-98 N MEAN CELL HGB (test code = MCH) 24.8 picogram 27.0-33.0 L MEAN CELL HGB CONCETRATION (test code = MCHC) 28.3 gram/dL 33.0-36. 0 L RED CELL DISTRIBUTION WIDTH (test code = RDW) 21.0 % 11.6-16. 2 H RED CELL DISTRIBUTION WIDTH SD (test code = RDW-SD) 63.7 fL 37 .0-51.0 H PLATELET COUNT (test code = PLT) 162 K/mm3 150-450 N MEAN PLATELET VOLUME (test code = MPV) 10.2 fL 6.7-11.0 N NEUTROPHIL % (test code = NT%) 73.4 % 39.0-69.0 H IMMATURE GRANULOCYTE % (test code = IG%) 1.3 % 0.0-5.0 N LYMPHOCYTE % (test code = LY%) 15.2 % 25.0-55.0 L MONOCYTE % (test code = MO%) 8.6 % 0.0-10.0 N EOSINOPHIL % (test code = EO%) 1.2 % 0.0-5.0 N BASOPHIL % (test code = BA%) 0.3 % 0.0-1.0 N NUCLEATED RBC % (test code = NRBC%) 0.5 % 0-0 H NEUTROPHIL # (test code = NT#) 4.43 K/mm3 1.8-7.7 N IMMATURE GRANULOCYTE # (test code = IG#) 0.08 x10 3/uL 0-0.03 H LYMPHOCYTE # (test code = LY#) 0.92 K/mm3 1.0-5.0 L MONOCYTE # (test code = MO#) 0.52 K/mm3 0-0.8 N EOSINOPHIL # (test code = EO#) 0.07 K/mm3 0.0-0.5 N BASOPHIL # (test code = BA#) 0.02 K/mm3 0.0-0.2 N NUCLEATED RBC # (test code = NRBC#) 0.03 K/mm3 0.0-0.1 N MANUAL DIFF REQUIRED (test code = MDIFF) NO, ONLY SCAN NEEDED DIFFERENTIAL [id number] 06:12:00* Test Item Value Reference Range Interpretation Comments STAIN ACCEPTABILITY (test code = STN ACCEPTABLE) CABOT RINGS (test code = CAB) MORPHOLOGY COMMENT (test code = MOC) PLATELET ESTIMATE (test code = PLTEST) PLATELET MORPHOLOGY (test code = PLTMORPH) CBC W/AUTO [id number] 06:12:00* Test Item Value Reference Range Interpretation Comments WHITE BLOOD CELL (test code = WBC) 6.0 K/mm3 4.5-12.5 N RED BLOOD CELL (test code = RBC) 4.31 mill/mm3 4.0-5.8 N HEMOGLOBIN (test code = HGB) 10.7 gram/dL 13.0-17.5 L HEMATOCRIT (test code = HCT) 37.8 % 42.0-52.0 L MEAN CELL VOLUME (test code = MCV) 87.7 fL 80-98 N MEAN CELL HGB (test code = MCH) 24.8 picogram 27.0-33.0 L MEAN CELL HGB CONCETRATION (test code = MCHC) 28.3 gram/dL 33.0-36. 0 L RED CELL DISTRIBUTION WIDTH (test code = RDW) 21.0 % 11.6-16. 2 H RED CELL DISTRIBUTION WIDTH SD (test code = RDW-SD) 63.7 fL 37 .0-51.0 H PLATELET COUNT (test code = PLT) 162 K/mm3 150-450 N MEAN PLATELET VOLUME (test code = MPV) 10.2 fL 6.7-11.0 N NEUTROPHIL % (test code = NT%) 73.4 % 39.0-69.0 H IMMATURE GRANULOCYTE % (test code = IG%) 1.3 % 0.0-5.0 N LYMPHOCYTE % (test code = LY%) 15.2 % 25.0-55.0 L MONOCYTE % (test code = MO%) 8.6 % 0.0-10.0 N EOSINOPHIL % (test code = EO%) 1.2 % 0.0-5.0 N BASOPHIL % (test code = BA%) 0.3 % 0.0-1.0 N NUCLEATED RBC % (test code = NRBC%) 0.5 % 0-0 H NEUTROPHIL # (test code = NT#) 4.43 K/mm3 1.8-7.7 N IMMATURE GRANULOCYTE # (test code = IG#) 0.08 x10 3/uL 0-0.03 H LYMPHOCYTE # (test code = LY#) 0.92 K/mm3 1.0-5.0 L MONOCYTE # (test code = MO#) 0.52 K/mm3 0-0.8 N EOSINOPHIL # (test code = EO#) 0.07 K/mm3 0.0-0.5 N BASOPHIL # (test code = BA#) 0.02 K/mm3 0.0-0.2 N NUCLEATED RBC # (test code = NRBC#) 0.03 K/mm3 0.0-0.1 N MANUAL DIFF REQUIRED (test code = MDIFF) NO, ONLY SCAN NEEDED DIFFERENTIAL [id number] 06:12:00* Test Item Value Reference Range Interpretation Comments STAIN ACCEPTABILITY (test code = STN ACCEPTABLE) CABOT RINGS (test code = CAB) MORPHOLOGY COMMENT (test code = MOC) PLATELET ESTIMATE (test code = PLTEST) PLATELET MORPHOLOGY (test code = PLTMORPH) [id number] 04:54:00* Test Item Value Reference Range Interpretation Comments GLUBED (test code = GLUBED) 124 mg/dL 74-106 H Performed by certified winchman/crane operator at [facility] [id number] 21:26:00* Test Item Value Reference Range Interpretation Comments GLUBED (test code = GLUBED) 193 mg/dL 74-106 H Performed by certified winchman/crane operator at [facility] [id number] 17:23:00* Test Item Value Reference Range Interpretation Comments GLUBED (test code = GLUBED) 159 mg/dL 74-106 H Performed by certified winchman/crane operator at [facility] [id number] 13:36:00* Test Item Value Reference Range Interpretation Comments GLUBED (test code = GLUBED) 145 mg/dL 74-106 H Performed by certified winchman/crane operator at [facility] [id number] 08:14:00* Test Item Value Reference Range Interpretation Comments GLUBED (test code = GLUBED) 89 mg/dL 74-106 N Performed by certified winchman/crane operator at [facility] CBC W/AUTO [id number] 06:16:00* Test Item Value Reference Range Interpretation Comments WHITE BLOOD CELL (test code = WBC) 5.8 K/mm3 4.5-12.5 N RED BLOOD CELL (test code = RBC) 4.23 mill/mm3 4.0-5.8 N HEMOGLOBIN (test code = HGB) 10.4 gram/dL 13.0-17.5 L HEMATOCRIT (test code = HCT) 36.1 % 42.0-52.0 L MEAN CELL VOLUME (test code = MCV) 85.3 fL 80-98 N MEAN CELL HGB (test code = MCH) 24.6 picogram 27.0-33.0 L MEAN CELL HGB CONCETRATION (test code = MCHC) 28.8 gram/dL 33.0-36. 0 L RED CELL DISTRIBUTION WIDTH (test code = RDW) 20.9 % 11.6-16. 2 H RED CELL DISTRIBUTION WIDTH SD (test code = RDW-SD) 62.1 fL 37 .0-51.0 H PLATELET COUNT (test code = PLT) 157 K/mm3 150-450 N MEAN PLATELET VOLUME (test code = MPV) 10.2 fL 6.7-11.0 N NEUTROPHIL % (test code = NT%) 78.0 % 39.0-69.0 H IMMATURE GRANULOCYTE % (test code = IG%) 1.7 % 0.0-5.0 N LYMPHOCYTE % (test code = LY%) 12.6 % 25.0-55.0 L MONOCYTE % (test code = MO%) 6.7 % 0.0-10.0 N EOSINOPHIL % (test code = EO%) 0.5 % 0.0-5.0 N BASOPHIL % (test code = BA%) 0.5 % 0.0-1.0 N NUCLEATED RBC % (test code = NRBC%) 0.3 % 0-0 H NEUTROPHIL # (test code = NT#) 4.52 K/mm3 1.8-7.7 N IMMATURE GRANULOCYTE # (test code = IG#) 0.10 x10 3/uL 0-0.03 H LYMPHOCYTE # (test code = LY#) 0.73 K/mm3 1.0-5.0 L MONOCYTE # (test code = MO#) 0.39 K/mm3 0-0.8 N EOSINOPHIL # (test code = EO#) 0.03 K/mm3 0.0-0.5 N BASOPHIL # (test code = BA#) 0.03 K/mm3 0.0-0.2 N NUCLEATED RBC # (test code = NRBC#) 0.02 K/mm3 0.0-0.1 N MANUAL DIFF REQUIRED (test code = MDIFF) NO, ONLY SCAN NEEDED DIFFERENTIAL [id number] 06:16:00* Test Item Value Reference Range Interpretation Comments STAIN ACCEPTABILITY (test code = STN ACCEPTABLE) STAIN ACCEPTABLE POLYCHROMASIA (test code = POLC) 1+ POIKILOCYTOSIS (test code = POIK) 1+ ANISOCYTOSIS (test code = ANISO) 2+ MICROCYTOSIS (test code = MICR) 2+ OVALOCYTES (test code = OVAL) 1+ PLATELET ESTIMATE (test code = PLTEST) ADEQUATE PLATELET MORPHOLOGY (test code = PLTMORPH) NORMAL BASIC METABOLIC [id number] 06:16:00* Test Item Value Reference Range Interpretation Comments SODIUM (test code = NA) 141 mmol/L 136-145 N POTASSIUM (test code = K) 3.1 mmol/L 3.5-5.1 L CHLORIDE (test code = CL) 100.0 mmol/L 98-107 N CARBON DIOXIDE (test code = CO2) 35.0 mmol/L 21-32 H ANION GAP (test code = GAP) 9.1 10-20 L GLUCOSE (test code = GLU) 127 mg/dL 74-106 H BLOOD UREA NITROGEN (test code = BUN) 40 mg/dL 7-18 H GLOMERULAR FILTRATION RATE (test code = GFR) 49 mL/min >=60 Estimated GFR by using Modified MDRD formula.Chronic kidney disease is defined as either kidney damageor GFR <60 mL/min/1.73 m2 for >3 months. CREATININE (test code = CREAT) 1.40 mg/dL 0.7-1.3 H BUN/CREATININE RATIO (test code = BUN/CREA) 28.6 10-20 H CALCIUM (test code = CA) 8.3 mg/dL 8.5-10.1 L BASIC METABOLIC [id number] 06:06:00* Test Item Value Reference Range Interpretation Comments SODIUM (test code = NA) 141 mmol/L 136-145 N POTASSIUM (test code = K) 3.1 mmol/L 3.5-5.1 L CHLORIDE (test code = CL) 100.0 mmol/L 98-107 N CARBON DIOXIDE (test code = CO2) mmol/L 21-32 ANION GAP (test code = GAP) 10-20 GLUCOSE (test code = GLU) mg/dL 74-106 BLOOD UREA NITROGEN (test code = BUN) mg/dL 7-18 GLOMERULAR FILTRATION RATE (test code = GFR) mL/min >=60 CREATININE (test code = CREAT) mg/dL 0.7-1.3 BUN/CREATININE RATIO (test code = BUN/CREA) 10-20 CALCIUM (test code = CA) mg/dL 8.5-10.1 CBC W/AUTO [id number] 05:46:00* Test Item Value Reference Range Interpretation Comments WHITE BLOOD CELL (test code = WBC) 5.8 K/mm3 4.5-12.5 N RED BLOOD CELL (test code = RBC) 4.23 mill/mm3 4.0-5.8 N HEMOGLOBIN (test code = HGB) 10.4 gram/dL 13.0-17.5 L HEMATOCRIT (test code = HCT) 36.1 % 42.0-52.0 L MEAN CELL VOLUME (test code = MCV) 85.3 fL 80-98 N MEAN CELL HGB (test code = MCH) 24.6 picogram 27.0-33.0 L MEAN CELL HGB CONCETRATION (test code = MCHC) 28.8 gram/dL 33.0-36. 0 L RED CELL DISTRIBUTION WIDTH (test code = RDW) 20.9 % 11.6-16. 2 H RED CELL DISTRIBUTION WIDTH SD (test code = RDW-SD) 62.1 fL 37 .0-51.0 H PLATELET COUNT (test code = PLT) 157 K/mm3 150-450 N MEAN PLATELET VOLUME (test code = MPV) 10.2 fL 6.7-11.0 N NEUTROPHIL % (test code = NT%) 78.0 % 39.0-69.0 H IMMATURE GRANULOCYTE % (test code = IG%) 1.7 % 0.0-5.0 N LYMPHOCYTE % (test code = LY%) 12.6 % 25.0-55.0 L MONOCYTE % (test code = MO%) 6.7 % 0.0-10.0 N EOSINOPHIL % (test code = EO%) 0.5 % 0.0-5.0 N BASOPHIL % (test code = BA%) 0.5 % 0.0-1.0 N NUCLEATED RBC % (test code = NRBC%) 0.3 % 0-0 H NEUTROPHIL # (test code = NT#) 4.52 K/mm3 1.8-7.7 N IMMATURE GRANULOCYTE # (test code = IG#) 0.10 x10 3/uL 0-0.03 H LYMPHOCYTE # (test code = LY#) 0.73 K/mm3 1.0-5.0 L MONOCYTE # (test code = MO#) 0.39 K/mm3 0-0.8 N EOSINOPHIL # (test code = EO#) 0.03 K/mm3 0.0-0.5 N BASOPHIL # (test code = BA#) 0.03 K/mm3 0.0-0.2 N NUCLEATED RBC # (test code = NRBC#) 0.02 K/mm3 0.0-0.1 N MANUAL DIFF REQUIRED (test code = MDIFF) NO, ONLY SCAN NEEDED DIFFERENTIAL [id number] 05:46:00* Test Item Value Reference Range Interpretation Comments STAIN ACCEPTABILITY (test code = STN ACCEPTABLE) CABOT RINGS (test code = CAB) MORPHOLOGY COMMENT (test code = MOC) PLATELET ESTIMATE (test code = PLTEST) PLATELET MORPHOLOGY (test code = PLTMORPH) CBC W/AUTO [id number] 05:46:00* Test Item Value Reference Range Interpretation Comments WHITE BLOOD CELL (test code = WBC) 5.8 K/mm3 4.5-12.5 N RED BLOOD CELL (test code = RBC) 4.23 mill/mm3 4.0-5.8 N HEMOGLOBIN (test code = HGB) 10.4 gram/dL 13.0-17.5 L HEMATOCRIT (test code = HCT) 36.1 % 42.0-52.0 L MEAN CELL VOLUME (test code = MCV) 85.3 fL 80-98 N MEAN CELL HGB (test code = MCH) 24.6 picogram 27.0-33.0 L MEAN CELL HGB CONCETRATION (test code = MCHC) 28.8 gram/dL 33.0-36. 0 L RED CELL DISTRIBUTION WIDTH (test code = RDW) 20.9 % 11.6-16. 2 H RED CELL DISTRIBUTION WIDTH SD (test code = RDW-SD) 62.1 fL 37 .0-51.0 H PLATELET COUNT (test code = PLT) 157 K/mm3 150-450 N MEAN PLATELET VOLUME (test code = MPV) 10.2 fL 6.7-11.0 N NEUTROPHIL % (test code = NT%) 78.0 % 39.0-69.0 H IMMATURE GRANULOCYTE % (test code = IG%) 1.7 % 0.0-5.0 N LYMPHOCYTE % (test code = LY%) 12.6 % 25.0-55.0 L MONOCYTE % (test code = MO%) 6.7 % 0.0-10.0 N EOSINOPHIL % (test code = EO%) 0.5 % 0.0-5.0 N BASOPHIL % (test code = BA%) 0.5 % 0.0-1.0 N NUCLEATED RBC % (test code = NRBC%) 0.3 % 0-0 H NEUTROPHIL # (test code = NT#) 4.52 K/mm3 1.8-7.7 N IMMATURE GRANULOCYTE # (test code = IG#) 0.10 x10 3/uL 0-0.03 H LYMPHOCYTE # (test code = LY#) 0.73 K/mm3 1.0-5.0 L MONOCYTE # (test code = MO#) 0.39 K/mm3 0-0.8 N EOSINOPHIL # (test code = EO#) 0.03 K/mm3 0.0-0.5 N BASOPHIL # (test code = BA#) 0.03 K/mm3 0.0-0.2 N NUCLEATED RBC # (test code = NRBC#) 0.02 K/mm3 0.0-0.1 N MANUAL DIFF REQUIRED (test code = MDIFF) NO, ONLY SCAN NEEDED DIFFERENTIAL [id number] 05:46:00* Test Item Value Reference Range Interpretation Comments STAIN ACCEPTABILITY (test code = STN ACCEPTABLE) MORPHOLOGY COMMENT (test code = MOC) PLATELET ESTIMATE (test code = PLTEST) PLATELET MORPHOLOGY (test code = PLTMORPH) CBC W/AUTO [id number] 05:45:00* Test Item Value Reference Range Interpretation Comments WHITE BLOOD CELL (test code = WBC) 5.8 K/mm3 4.5-12.5 N RED BLOOD CELL (test code = RBC) 4.23 mill/mm3 4.0-5.8 N HEMOGLOBIN (test code = HGB) 10.4 gram/dL 13.0-17.5 L HEMATOCRIT (test code = HCT) 36.1 % 42.0-52.0 L MEAN CELL VOLUME (test code = MCV) 85.3 fL 80-98 N MEAN CELL HGB (test code = MCH) 24.6 picogram 27.0-33.0 L MEAN CELL HGB CONCETRATION (test code = MCHC) 28.8 gram/dL 33.0-36. 0 L RED CELL DISTRIBUTION WIDTH (test code = RDW) 20.9 % 11.6-16. 2 H RED CELL DISTRIBUTION WIDTH SD (test code = RDW-SD) 62.1 fL 37 .0-51.0 H PLATELET COUNT (test code = PLT) 157 K/mm3 150-450 N MEAN PLATELET VOLUME (test code = MPV) 10.2 fL 6.7-11.0 N NEUTROPHIL % (test code = NT%) 78.0 % 39.0-69.0 H IMMATURE GRANULOCYTE % (test code = IG%) 1.7 % 0.0-5.0 N LYMPHOCYTE % (test code = LY%) 12.6 % 25.0-55.0 L MONOCYTE % (test code = MO%) 6.7 % 0.0-10.0 N EOSINOPHIL % (test code = EO%) 0.5 % 0.0-5.0 N BASOPHIL % (test code = BA%) 0.5 % 0.0-1.0 N NUCLEATED RBC % (test code = NRBC%) 0.3 % 0-0 H NEUTROPHIL # (test code = NT#) 4.52 K/mm3 1.8-7.7 N IMMATURE GRANULOCYTE # (test code = IG#) 0.10 x10 3/uL 0-0.03 H LYMPHOCYTE # (test code = LY#) 0.73 K/mm3 1.0-5.0 L MONOCYTE # (test code = MO#) 0.39 K/mm3 0-0.8 N EOSINOPHIL # (test code = EO#) 0.03 K/mm3 0.0-0.5 N BASOPHIL # (test code = BA#) 0.03 K/mm3 0.0-0.2 N NUCLEATED RBC # (test code = NRBC#) 0.02 K/mm3 0.0-0.1 N MANUAL DIFF REQUIRED (test code = MDIFF) NO, ONLY SCAN NEEDED DIFFERENTIAL [id number] 05:45:00* Test Item Value Reference Range Interpretation Comments STAIN ACCEPTABILITY (test code = STN ACCEPTABLE) CABOT RINGS (test code = CAB) MORPHOLOGY COMMENT (test code = MOC) PLATELET ESTIMATE (test code = PLTEST) PLATELET MORPHOLOGY (test code = PLTMORPH) CBC W/AUTO [id number] 05:45:00* Test Item Value Reference Range Interpretation Comments WHITE BLOOD CELL (test code = WBC) 5.8 K/mm3 4.5-12.5 N RED BLOOD CELL (test code = RBC) 4.23 mill/mm3 4.0-5.8 N HEMOGLOBIN (test code = HGB) 10.4 gram/dL 13.0-17.5 L HEMATOCRIT (test code = HCT) 36.1 % 42.0-52.0 L MEAN CELL VOLUME (test code = MCV) 85.3 fL 80-98 N MEAN CELL HGB (test code = MCH) 24.6 picogram 27.0-33.0 L MEAN CELL HGB CONCETRATION (test code = MCHC) 28.8 gram/dL 33.0-36. 0 L RED CELL DISTRIBUTION WIDTH (test code = RDW) 20.9 % 11.6-16. 2 H RED CELL DISTRIBUTION WIDTH SD (test code = RDW-SD) 62.1 fL 37 .0-51.0 H PLATELET COUNT (test code = PLT) 157 K/mm3 150-450 N MEAN PLATELET VOLUME (test code = MPV) 10.2 fL 6.7-11.0 N NEUTROPHIL % (test code = NT%) 78.0 % 39.0-69.0 H IMMATURE GRANULOCYTE % (test code = IG%) 1.7 % 0.0-5.0 N LYMPHOCYTE % (test code = LY%) 12.6 % 25.0-55.0 L MONOCYTE % (test code = MO%) 6.7 % 0.0-10.0 N EOSINOPHIL % (test code = EO%) 0.5 % 0.0-5.0 N BASOPHIL % (test code = BA%) 0.5 % 0.0-1.0 N NUCLEATED RBC % (test code = NRBC%) 0.3 % 0-0 H NEUTROPHIL # (test code = NT#) 4.52 K/mm3 1.8-7.7 N IMMATURE GRANULOCYTE # (test code = IG#) 0.10 x10 3/uL 0-0.03 H LYMPHOCYTE # (test code = LY#) 0.73 K/mm3 1.0-5.0 L MONOCYTE # (test code = MO#) 0.39 K/mm3 0-0.8 N EOSINOPHIL # (test code = EO#) 0.03 K/mm3 0.0-0.5 N BASOPHIL # (test code = BA#) 0.03 K/mm3 0.0-0.2 N NUCLEATED RBC # (test code = NRBC#) 0.02 K/mm3 0.0-0.1 N MANUAL DIFF REQUIRED (test code = MDIFF) NO, ONLY SCAN NEEDED DIFFERENTIAL [id number] 05:45:00* Test Item Value Reference Range Interpretation Comments STAIN ACCEPTABILITY (test code = STN ACCEPTABLE) CABOT RINGS (test code = CAB) MORPHOLOGY COMMENT (test code = MOC) PLATELET ESTIMATE (test code = PLTEST) PLATELET MORPHOLOGY (test code = PLTMORPH) [id number] 20:52:00* Test Item Value Reference Range Interpretation Comments GLUBED (test code = GLUBED) 128 mg/dL 74-106 H Performed by certified winchman/crane operator at [facility] [id number] 18:34:00* Test Item Value Reference Range Interpretation Comments GLUBED (test code = GLUBED) 118 mg/dL 74-106 H Performed by certified winchman/crane operator at [facility] [id number] 18:34:00* Test Item Value Reference Range Interpretation Comments GLUBED (test code = GLUBED) 100 mg/dL 74-106 N Performed by certified winchman/crane operator at [facility] [id number] 08:41:00* Test Item Value Reference Range Interpretation Comments GLUBED (test code = GLUBED) 108 mg/dL 74-106 H Performed by certified winchman/crane operator at [facility] CBC W/AUTO [id number] 06:21:00* Test Item Value Reference Range Interpretation Comments WHITE BLOOD CELL (test code = WBC) 9.0 K/mm3 4.5-12.5 N RED BLOOD CELL (test code = RBC) 4.51 mill/mm3 4.0-5.8 N HEMOGLOBIN (test code = HGB) 11.2 gram/dL 13.0-17.5 L HEMATOCRIT (test code = HCT) 38.8 % 42.0-52.0 L MEAN CELL VOLUME (test code = MCV) 86.0 fL 80-98 N MEAN CELL HGB (test code = MCH) 24.8 picogram 27.0-33.0 L MEAN CELL HGB CONCETRATION (test code = MCHC) 28.9 gram/dL 33.0-36. 0 L RED CELL DISTRIBUTION WIDTH (test code = RDW) 20.8 % 11.6-16. 2 H RED CELL DISTRIBUTION WIDTH SD (test code = RDW-SD) 60.6 fL 37 .0-51.0 H PLATELET COUNT (test code = PLT) 171 K/mm3 150-450 N MEAN PLATELET VOLUME (test code = MPV) 10.5 fL 6.7-11.0 N NEUTROPHIL % (test code = NT%) 73.9 % 39.0-69.0 H IMMATURE GRANULOCYTE % (test code = IG%) 1.8 % 0.0-5.0 N LYMPHOCYTE % (test code = LY%) 15.1 % 25.0-55.0 L MONOCYTE % (test code = MO%) 8.2 % 0.0-10.0 N EOSINOPHIL % (test code = EO%) 0.7 % 0.0-5.0 N BASOPHIL % (test code = BA%) 0.3 % 0.0-1.0 N NUCLEATED RBC % (test code = NRBC%) 0.4 % 0-0 H NEUTROPHIL # (test code = NT#) 6.68 K/mm3 1.8-7.7 N IMMATURE GRANULOCYTE # (test code = IG#) 0.16 x10 3/uL 0-0.03 H LYMPHOCYTE # (test code = LY#) 1.36 K/mm3 1.0-5.0 N MONOCYTE # (test code = MO#) 0.74 K/mm3 0-0.8 N EOSINOPHIL # (test code = EO#) 0.06 K/mm3 0.0-0.5 N BASOPHIL # (test code = BA#) 0.03 K/mm3 0.0-0.2 N NUCLEATED RBC # (test code = NRBC#) 0.04 K/mm3 0.0-0.1 N MANUAL DIFF REQUIRED (test code = MDIFF) NO, ONLY SCAN NEEDED DIFFERENTIAL [id number] 06:21:00* Test Item Value Reference Range Interpretation Comments STAIN ACCEPTABILITY (test code = STN ACCEPTABLE) STAIN ACCEPTABLE ANISOCYTOSIS (test code = ANISO) 1+ MICROCYTOSIS (test code = MICR) 1+ PLATELET ESTIMATE (test code = PLTEST) ADEQUATE PLATELET MORPHOLOGY (test code = PLTMORPH) NORMAL BASIC METABOLIC [id number] 05:30:00* Test Item Value Reference Range Interpretation Comments SODIUM (test code = NA) 140 mmol/L 136-145 N POTASSIUM (test code = K) 4.1 mmol/L 3.5-5.1 N CHLORIDE (test code = CL) 99.0 mmol/L 98-107 N CARBON DIOXIDE (test code = CO2) 37.0 mmol/L 21-32 H ANION GAP (test code = GAP) 8.1 10-20 L GLUCOSE (test code = GLU) 118 mg/dL 74-106 H BLOOD UREA NITROGEN (test code = BUN) 48 mg/dL 7-18 H GLOMERULAR FILTRATION RATE (test code = GFR) 37 mL/min >=60 Estimated GFR by using Modified MDRD formula.Chronic kidney disease is defined as either kidney damageor GFR <60 mL/min/1.73 m2 for >3 months. CREATININE (test code = CREAT) 1.80 mg/dL 0.7-1.3 H BUN/CREATININE RATIO (test code = BUN/CREA) 26.7 10-20 H CALCIUM (test code = CA) 9.2 mg/dL 8.5-10.1 N LIPID PROFILE (CORONARY RISK)[id number] 05:30:00* Test Item Value Reference Range Interpretation Comments TRIGLYCERIDES (test code = TRIG) 165 mg/dL 20-150 H CHOLESTEROL (test code = CHOL) 164 mg/dL 0-200 N CHOLESTEROL/HDL RATIO (test code = CHOLHDL) 4.0 RATIO 0-4.9 N RISK ASSOCIATED WITH CHOL/HDL RATIOS: Risk Male Female1/2 AVERAGE 3.43 3.27AVERAGE 4.97 4.442X AVERAGE 9.55 7.053X AVERAGE 23.39 11.04 REFERENCE VALUE IS RELATED TO RISK LEVELS ASRECOMMENDED BY THE [facility]. HEART, LUNG, AND BLOOD INST. HDL CHOLESTEROL (test code = HDL) 41 mg/dL 40-60 N LIPOPROTEIN LDL (test code = LDL) 95 mg/dL 100-129 L Reference Interval: mg/dL mmol/L Optimal <100 <2.6Near/above optimal 100-129 2.6- 3.3Borderline High 130-159 3.4-4.1High 160-189 4.1-4.9Very High >=190 >=4.9========= This LDL result is a direct measurement.========= [id number] 05:30:00* Test Item Value Reference Range Interpretation Comments PHOSPHORUS (test code = PHOS) 1.9 mg/dL 2.5-4.9 L [id number] 05:30:00* Test Item Value Reference Range Interpretation Comments MAGNESIUM (test code = MAG) 2.5 mg/dL 1.8-2.4 H THYROID STIMULATING [id number] 05:30:00* Test Item Value Reference Range Interpretation Comments THYROID STIMULATING HORMONE (test code = TSH) 5.000 uIU/mL 0.36-3.7 4 H TSH REFERENCE RANGES: EUTHYROID: 0.35 - 4.3 mIU/mL HYPO : > 5.5 mIU/mL HYPER : < 0.35 mIU/mL B-TYPE NATRIURETIC [id number] 05:27:00* Test Item Value Reference Range Interpretation Comments B-TYPE NATRIURETIC PEPTIDE (test code = BNP) 112.32 pgram/mL 0-100 H CBC W/AUTO [id number] 05:27:00* Test Item Value Reference Range Interpretation Comments WHITE BLOOD CELL (test code = WBC) 9.0 K/mm3 4.5-12.5 N RED BLOOD CELL (test code = RBC) 4.51 mill/mm3 4.0-5.8 N HEMOGLOBIN (test code = HGB) 11.2 gram/dL 13.0-17.5 L HEMATOCRIT (test code = HCT) 38.8 % 42.0-52.0 L MEAN CELL VOLUME (test code = MCV) 86.0 fL 80-98 N MEAN CELL HGB (test code = MCH) 24.8 picogram 27.0-33.0 L MEAN CELL HGB CONCETRATION (test code = MCHC) 28.9 gram/dL 33.0-36. 0 L RED CELL DISTRIBUTION WIDTH (test code = RDW) 20.8 % 11.6-16. 2 H RED CELL DISTRIBUTION WIDTH SD (test code = RDW-SD) 60.6 fL 37 .0-51.0 H PLATELET COUNT (test code = PLT) 171 K/mm3 150-450 N MEAN PLATELET VOLUME (test code = MPV) 10.5 fL 6.7-11.0 N NEUTROPHIL % (test code = NT%) 73.9 % 39.0-69.0 H IMMATURE GRANULOCYTE % (test code = IG%) 1.8 % 0.0-5.0 N LYMPHOCYTE % (test code = LY%) 15.1 % 25.0-55.0 L MONOCYTE % (test code = MO%) 8.2 % 0.0-10.0 N EOSINOPHIL % (test code = EO%) 0.7 % 0.0-5.0 N BASOPHIL % (test code = BA%) 0.3 % 0.0-1.0 N NUCLEATED RBC % (test code = NRBC%) 0.4 % 0-0 H NEUTROPHIL # (test code = NT#) 6.68 K/mm3 1.8-7.7 N IMMATURE GRANULOCYTE # (test code = IG#) 0.16 x10 3/uL 0-0.03 H LYMPHOCYTE # (test code = LY#) 1.36 K/mm3 1.0-5.0 N MONOCYTE # (test code = MO#) 0.74 K/mm3 0-0.8 N EOSINOPHIL # (test code = EO#) 0.06 K/mm3 0.0-0.5 N BASOPHIL # (test code = BA#) 0.03 K/mm3 0.0-0.2 N NUCLEATED RBC # (test code = NRBC#) 0.04 K/mm3 0.0-0.1 N MANUAL DIFF REQUIRED (test code = MDIFF) NO, ONLY SCAN NEEDED DIFFERENTIAL [id number] 05:27:00* Test Item Value Reference Range Interpretation Comments STAIN ACCEPTABILITY (test code = STN ACCEPTABLE) STAIN ACCEPTABLE ANISOCYTOSIS (test code = ANISO) 1+ MICROCYTOSIS (test code = MICR) 1+ MORPHOLOGY COMMENT (test code = MOC) NORMAL PLATELET ESTIMATE (test code = PLTEST) ADEQUATE PLATELET MORPHOLOGY (test code = PLTMORPH) NORMAL BASIC METABOLIC [id number] 05:15:00* Test Item Value Reference Range Interpretation Comments SODIUM (test code = NA) 140 mmol/L 136-145 N POTASSIUM (test code = K) 4.1 mmol/L 3.5-5.1 N CHLORIDE (test code = CL) 99.0 mmol/L 98-107 N CARBON DIOXIDE (test code = CO2) mmol/L 21-32 ANION GAP (test code = GAP) 10-20 GLUCOSE (test code = GLU) mg/dL 74-106 BLOOD UREA NITROGEN (test code = BUN) mg/dL 7-18 GLOMERULAR FILTRATION RATE (test code = GFR) mL/min >=60 CREATININE (test code = CREAT) mg/dL 0.7-1.3 BUN/CREATININE RATIO (test code = BUN/CREA) 10-20 CALCIUM (test code = CA) mg/dL 8.5-10.1 LIPID PROFILE (CORONARY RISK)2019-11-19 05:15:00* Test Item Value Reference Range Interpretation Comments TRIGLYCERIDES (test code = TRIG) mg/dL 20-150 CHOLESTEROL (test code = CHOL) mg/dL 0-200 CHOLESTEROL/HDL RATIO (test code = CHOLHDL) RATIO 0-4.9 HDL CHOLESTEROL (test code = HDL) mg/dL 40-60 LIPOPROTEIN LDL (test code = LDL) mg/dL 100-129 [id number] 05:15:00* Test Item Value Reference Range Interpretation Comments PHOSPHORUS (test code = PHOS) mg/dL 2.5-4.9 [id number] 05:15:00* Test Item Value Reference Range Interpretation Comments MAGNESIUM (test code = MAG) mg/dL 1.8-2.4 THYROID STIMULATING [id number] 05:15:00* Test Item Value Reference Range Interpretation Comments THYROID STIMULATING HORMONE (test code = TSH) uIU/mL 0.36-3.7 4 [id number] 05:08:00* Test Item Value Reference Range Interpretation Comments GLYCOSYLATED HEMOGLOBIN (HA1C) (test code = GLYHGB) 6.9 % HbA1 SUGGESTED DIAGNOSIS: HbA1C (%) Diabetic >6.4Prediabetes 5.7 - 6.4Normal <5.7 ESTIMATED AVERAGE GLUCOSE (test code = EAG) 151 MG/DL CBC W/AUTO [id number] 04:59:00* Test Item Value Reference Range Interpretation Comments WHITE BLOOD CELL (test code = WBC) 9.0 K/mm3 4.5-12.5 N RED BLOOD CELL (test code = RBC) 4.51 mill/mm3 4.0-5.8 N HEMOGLOBIN (test code = HGB) 11.2 gram/dL 13.0-17.5 L HEMATOCRIT (test code = HCT) 38.8 % 42.0-52.0 L MEAN CELL VOLUME (test code = MCV) 86.0 fL 80-98 N MEAN CELL HGB (test code = MCH) 24.8 picogram 27.0-33.0 L MEAN CELL HGB CONCETRATION (test code = MCHC) 28.9 gram/dL 33.0-36. 0 L RED CELL DISTRIBUTION WIDTH (test code = RDW) 20.8 % 11.6-16. 2 H RED CELL DISTRIBUTION WIDTH SD (test code = RDW-SD) 60.6 fL 37 .0-51.0 H PLATELET COUNT (test code = PLT) 171 K/mm3 150-450 N MEAN PLATELET VOLUME (test code = MPV) 10.5 fL 6.7-11.0 N NEUTROPHIL % (test code = NT%) 73.9 % 39.0-69.0 H IMMATURE GRANULOCYTE % (test code = IG%) 1.8 % 0.0-5.0 N LYMPHOCYTE % (test code = LY%) 15.1 % 25.0-55.0 L MONOCYTE % (test code = MO%) 8.2 % 0.0-10.0 N EOSINOPHIL % (test code = EO%) 0.7 % 0.0-5.0 N BASOPHIL % (test code = BA%) 0.3 % 0.0-1.0 N NUCLEATED RBC % (test code = NRBC%) 0.4 % 0-0 H NEUTROPHIL # (test code = NT#) 6.68 K/mm3 1.8-7.7 N IMMATURE GRANULOCYTE # (test code = IG#) 0.16 x10 3/uL 0-0.03 H LYMPHOCYTE # (test code = LY#) 1.36 K/mm3 1.0-5.0 N MONOCYTE # (test code = MO#) 0.74 K/mm3 0-0.8 N EOSINOPHIL # (test code = EO#) 0.06 K/mm3 0.0-0.5 N BASOPHIL # (test code = BA#) 0.03 K/mm3 0.0-0.2 N NUCLEATED RBC # (test code = NRBC#) 0.04 K/mm3 0.0-0.1 N MANUAL DIFF REQUIRED (test code = MDIFF) NO, ONLY SCAN NEEDED DIFFERENTIAL [id number] 04:59:00* Test Item Value Reference Range Interpretation Comments STAIN ACCEPTABILITY (test code = STN ACCEPTABLE) CABOT RINGS (test code = CAB) MORPHOLOGY COMMENT (test code = MOC) PLATELET ESTIMATE (test code = PLTEST) PLATELET MORPHOLOGY (test code = PLTMORPH) CBC W/AUTO [id number] 04:59:00* Test Item Value Reference Range Interpretation Comments WHITE BLOOD CELL (test code = WBC) 9.0 K/mm3 4.5-12.5 N RED BLOOD CELL (test code = RBC) 4.51 mill/mm3 4.0-5.8 N HEMOGLOBIN (test code = HGB) 11.2 gram/dL 13.0-17.5 L HEMATOCRIT (test code = HCT) 38.8 % 42.0-52.0 L MEAN CELL VOLUME (test code = MCV) 86.0 fL 80-98 N MEAN CELL HGB (test code = MCH) 24.8 picogram 27.0-33.0 L MEAN CELL HGB CONCETRATION (test code = MCHC) 28.9 gram/dL 33.0-36. 0 L RED CELL DISTRIBUTION WIDTH (test code = RDW) 20.8 % 11.6-16. 2 H RED CELL DISTRIBUTION WIDTH SD (test code = RDW-SD) 60.6 fL 37 .0-51.0 H PLATELET COUNT (test code = PLT) 171 K/mm3 150-450 N MEAN PLATELET VOLUME (test code = MPV) 10.5 fL 6.7-11.0 N NEUTROPHIL % (test code = NT%) 73.9 % 39.0-69.0 H IMMATURE GRANULOCYTE % (test code = IG%) 1.8 % 0.0-5.0 N LYMPHOCYTE % (test code = LY%) 15.1 % 25.0-55.0 L MONOCYTE % (test code = MO%) 8.2 % 0.0-10.0 N EOSINOPHIL % (test code = EO%) 0.7 % 0.0-5.0 N BASOPHIL % (test code = BA%) 0.3 % 0.0-1.0 N NUCLEATED RBC % (test code = NRBC%) 0.4 % 0-0 H NEUTROPHIL # (test code = NT#) 6.68 K/mm3 1.8-7.7 N IMMATURE GRANULOCYTE # (test code = IG#) 0.16 x10 3/uL 0-0.03 H LYMPHOCYTE # (test code = LY#) 1.36 K/mm3 1.0-5.0 N MONOCYTE # (test code = MO#) 0.74 K/mm3 0-0.8 N EOSINOPHIL # (test code = EO#) 0.06 K/mm3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 code = 1742-6) 29 0-55 [facility] SouthTotal Jkiknot0465-56-96 13:15:00* Test Item Value Reference Range Interpretation Comments Total Protein (test code = 2885-2) 5.9 6.5-8.1 L [facility] SouthAlbumin2019-12-21 13:15:00* Test Item Value Reference Range Interpretation Comments Albumin (test code = 1751-7) 3.8 3.5-5.0 [facility] SouthGlobulin2019-12-21 13:15:00* Test Item Value Reference Range Interpretation Comments Globulin (test code = 26914-0) 2.1 2.3-3.5 L [facility] SouthAlbumin/Globulin Tlwno1192-16-33 13:15:00 * Test Item Value Reference Range Interpretation Comments Albumin/Globulin Ratio (test code = 1759-0) 1.8 0.8-2.0 [facility] SouthAlkaline Ghetmycgjvp4362-35-88 13:15:00* Test Item Value Reference Range Interpretation Comments Alkaline Phosphatase (test code = 6768-6) 84 40-150 [facility] Jsxdg6395-23-49 13:15:00* Test Item Value Reference Range Interpretation Comments Sodium Level (test code = 2951-2) 137 136-145 [facility] SouthPotassium Cstxs4403-17-76 13:15:00* Test Item Value Reference Range Interpretation Comments Potassium Level (test code = 2823-3) 4.3 3.5-5.1 [facility] SouthChloride Vvzem7810-43-18 13:15:00* Test Item Value Reference Range Interpretation Comments Chloride Level (test code = 2075-0) 89 98-107 L [facility] SouthCarbon Dioxide Qqevu1415-04-37 13:15:00* Test Item Value Reference Range Interpretation Comments Carbon Dioxide Level (test code = 2028-9) 37 22-29 H [facility] SouthAnion Hch6862-64-80 13:15:00* Test Item Value Reference Range Interpretation Comments Anion Gap (test code = 99903-0) 15.3 8-16 [facility] SouthBlood Urea Vdfypfpt1543-81-62 13:15:00* Test Item Value Reference Range Interpretation Comments Blood Urea Nitrogen (test code = 3094-0) 50 7-26 H [facility] SouthCreatinine2019-12-21 13:15:00* Test Item Value Reference Range Interpretation Comments Creatinine (test code = 2160-0) 1.74 0.72-1.25 H [facility] SouthBUN/Creatinine Canqu4102-82-98 13:15:00* Test Item Value Reference Range Interpretation Comments BUN/Creatinine Ratio (test code = 3097-3) 29 6-25 H [facility] SouthEstimat Glomerular Filtration Rate 2019-10-16 13:15:00* Test Item Value Reference Range Interpretation Comments Estimat Glomerular Filtration Rate (test code = 072580527) 38 >60 L Ranges were taken from the National Kidney Disease Education Program and the [facility] [employer] literature.Reference ranges:60 or greater: Pnyyss54-07 ( for 3 consecutive months): Chronic kidney disease 15 or less: Kidney failureCHRISTUS Spohn Hospital [facility] Christi – SouthGlucose Dwnem1382-12-62 13:15:00* Test Item Value Reference Range Interpretation Comments Glucose Level (test code = ARK8014) 172 74-118 H [facility] SouthCalcium Jlboh7790-38-62 13:15:00* Test Item Value Reference Range Interpretation Comments Calcium Level (test code = 01530-6) 9.4 8.4-10.2 [facility] SouthTotal Xhbumnila7872-10-52 13:15:00* Test Item Value Reference Range Interpretation Comments Total Bilirubin (test code = 1975-2) 0.4 0.2-1.2 [facility] SouthAspartate Amino Transf (AST/SGOT) 2019-10-16 13:15:00* Test Item Value Reference Range Interpretation Comments Aspartate Amino Transf (AST/SGOT) (test code = Aspartate Amino Transf (AST/SGOT)) 18 5-34 [facility] SouthAlanine Aminotransferase (ALT/SGPT) 2019-10-16 13:15:00* Test Item Value Reference Range Interpretation Comments Alanine Aminotransferase (ALT/SGPT) (test code = 1742-6) 29 0-55 [facility] SouthTotal Tqmcuwh5621-94-41 13:15:00* Test Item Value Reference Range Interpretation Comments Total Protein (test code = 2885-2) 5.9 6.5-8.1 L [facility] SouthAlbumin2019-12-21 13:15:00* Test Item Value Reference Range Interpretation Comments Albumin (test code = 1751-7) 3.8 3.5-5.0 [facility] SouthGlobulin2019-12-21 13:15:00* Test Item Value Reference Range Interpretation Comments Globulin (test code = 84270-6) 2.1 2.3-3.5 L [facility] SouthAlbumin/Globulin Gqrfh3490-78-20 13:15:00 * Test Item Value Reference Range Interpretation Comments Albumin/Globulin Ratio (test code = 1759-0) 1.8 0.8-2.0 [facility] SouthAlkaline Sebdzftkssp1974-71-61 13:15:00* Test Item Value Reference Range Interpretation Comments Alkaline Phosphatase (test code = 6768-6) 84 40-150 [facility] SouthArterial Blood fT6623-67-55 13:05:00* Test Item Value Reference Range Interpretation Comments Arterial Blood pH (test code = 2744-1) 7.49 7.31-7.41 H [facility] SouthArterial Blood Partial Pressure CO2 2019-10-16 13:05:00* Test Item Value Reference Range Interpretation Comments Arterial Blood Partial Pressure CO2 (test code = 2019-8) 51 41-51 [facility] SouthArterial Blood Partial Pressure O2 2019-10-16 13:05:00* Test Item Value Reference Range Interpretation Comments Arterial Blood Partial Pressure O2 (test code = 2018-8) 97 80-105 [facility] SouthArterial Blood DOV78539-53-17 13:05:00* Test Item Value Reference Range Interpretation Comments Arterial Blood HCO3 (test code = 1960-4) 39 23-28 H [facility] SouthArterial Blood Base Zabgpt8816-26-66 13:05:00* Test Item Value Reference Range Interpretation Comments Arterial Blood Base Excess (test code = 1925-7) 15.0 -2-3 H [facility] SouthArterial Blood Oxygen Saturation 2019-10-16 13:05:00* Test Item Value Reference Range Interpretation Comments Arterial Blood Oxygen Saturation (test code = 2708-6) 98.0 95-98 [id number] 13:05:00* Test Item Value Reference Range Interpretation Comments FiO2 (test code = FiO2) 24 NASAL CANNULA 2L CHIOMA FROM LEFT RADIALCHI [facility] Arterial Blood [id number] 13:05:00* Test Item Value Reference Range Interpretation Comments Arterial Blood pH (test code = 2744-1) 7.49 7.31-7.41 [facility] Partial Pressure CO2 2019-10-16 13:05:00* Test Item Value Reference Range Interpretation Comments Arterial Blood Partial Pressure CO2 (test code = 2018-8) 51 41-51 [facility] O2 2019-10-16 13:05:00* Test Item Value Reference Range Interpretation Comments Arterial Blood Partial Pressure O2 (test code = 2018-8) 97 80-105 [facility] Blood [id number] 13:05:00* Test Item Value Reference Range Interpretation Comments Arterial Blood HCO3 (test code = 1960-4) 39 23-28 H [facility] South[facility] Blood Base Crbuvt2717-00-94 13:05:00* Test Item Value Reference Range Interpretation Comments Arterial Blood Base Excess (test code = 1925-7) 15.0 -2-3 H [facility] Blood Oxygen Saturation 2019-10-16 13:05:00* Test Item Value Reference Range Interpretation Comments Arterial Blood Oxygen Saturation (test code = 2708-6) 98.0 95-98 [facility] SouthFiO22019-12-21 13:05:00* Test Item Value Reference Range Interpretation Comments FiO2 (test code = FiO2) 24 NASAL CANNULA 2L CHIOMA FROM LEFT RADIALCHI [facility] White Blood Nhgyk5790-88-59 13:04:00* Test Item Value Reference Range Interpretation Comments White Blood Count (test code = 6690-2) 12.11 4.8-10.8 H [facility]Red Blood Vubtj2082-25-44 13:04:00* Test Item Value Reference Range Interpretation Comments Red Blood Count (test code = 789-8) 5.08 4.3-5.7 [facility] SouthHemoglobin2019-12-21 13:04:00* Test Item Value Reference Range Interpretation Comments Hemoglobin (test code = 83050-8) 12.1 14.0-18.0 L [facility] SouthHematocrit2019-12-21 13:04:00* Test Item Value Reference Range Interpretation Comments Hematocrit (test code = 4544-3) 42.4 38.2-49.6 [facility]Mean Corpuscular Czueya5775-83-45 13:04:00* Test Item Value Reference Range Interpretation Comments Mean Corpuscular Volume (test code = 787-2) 83.5 81-99 [facility] Corpuscular Bvzqarodxr3491-26-82 13:04:00* Test Item Value Reference Range Interpretation Comments Mean Corpuscular Hemoglobin (test code = 785-6) 23.8 28-32 L [facility] Corpuscular Hemoglobin Concent 2019-10-16 13:04:00* Test Item Value Reference Range Interpretation Comments Mean Corpuscular Hemoglobin Concent (test code = 786-4) 28.5 31-35 L [facility] SouthRed Cell Distribution Phibg2651-62-77 13:04:00* Test Item Value Reference Range Interpretation Comments Red Cell Distribution Width (test code = 18179-9) 17.4 11.7 -14.4 H [facility] SouthPlatelet Sgskh6847-12-61 13:04:00* Test Item Value Reference Range Interpretation Comments Platelet Count (test code = 777-3) 204 140-360 [facility] SouthNeutrophils (%) (Auto)2019-10-16 13:04:00 * Test Item Value Reference Range Interpretation Comments Neutrophils (%) (Auto) (test code = 70038-9) 88.9 38.7-80.0 H [facility] SouthLymphocytes (%) (Auto)2019-10-16 13:04:00 * Test Item Value Reference Range Interpretation Comments Lymphocytes (%) (Auto) (test code = 736-9) 4.5 18.0-39.1 L [facility] SouthMonocytes (%) (Auto)2019-10-16 13:04:00* Test Item Value Reference Range Interpretation Comments Monocytes (%) (Auto) (test code = 5905-5) 4.4 4.4-11.3 [facility]Eosinophils (%) (Auto)2019-10-16 13:04:00 * Test Item Value Reference Range Interpretation Comments Eosinophils (%) (Auto) (test code = 713-8) 0.0 0.0-6.0 [facility]Basophils (%) (Auto)2019-10-16 13:04:00* Test Item Value Reference Range Interpretation Comments Basophils (%) (Auto) (test code = 706-2) 0.1 0.0-1.0 [facility] SouthIM GRANULOCYTES %2019-10-16 13:04:00* Test Item Value Reference Range Interpretation Comments IM GRANULOCYTES % (test code = IM GRANULOCYTES %) 2.1 0.0- 1.0 H [facility] SouthNeutrophils # (Auto)2019-10-16 13:04:00* Test Item Value Reference Range Interpretation Comments Neutrophils # (Auto) (test code = 751-8) 10.8 2.1-6.9 H [facility] SouthLymphocytes # (Auto)2019-10-16 13:04:00* Test Item Value Reference Range Interpretation Comments Lymphocytes # (Auto) (test code = 07854-7) 0.6 1.0-3.2 L [facility]Monocytes # (Auto)2019-10-16 13:04:00* Test Item Value Reference Range Interpretation Comments Monocytes # (Auto) (test code = 742-7) 0.5 0.2-0.8 [facility]Eosinophils # (Auto)2019-10-16 13:04:00* Test Item Value Reference Range Interpretation Comments Eosinophils # (Auto) (test code = 711-2) 0.0 0.0-0.4 [facility]ophils # (Auto)2019-10-16 13:04:00* Test Item Value Reference Range Interpretation Comments Basophils # (Auto) (test code = 704-7) 0.0 0.0-0.1 [facility] SouthAbsolute Immature Granulocyte (auto 2019-10-16 13:04:00* Test Item Value Reference Range Interpretation Comments Absolute Immature Granulocyte (auto (bharat t code = Absolute Immature Granulocyte (auto) 0.26 0-0.1 H [facility] SouthWhite Blood Twzah2223-80-41 13:04:00* Test Item Value Reference Range Interpretation Comments White Blood Count (test code = 6690-2) 12.11 4.8-10.8 H [facility] SouthRed Blood Xutio3206-48-50 13:04:00* Test Item Value Reference Range Interpretation Comments Red Blood Count (test code = 789-8) 5.08 4.3-5.7 [facility] SouthHemoglobin2019-12-21 13:04:00* Test Item Value Reference Range Interpretation Comments Hemoglobin (test code = 30491-7) 12.1 14.0-18.0 L [facility] SouthHematocrit2019-12-21 13:04:00* Test Item Value Reference Range Interpretation Comments Hematocrit (test code = 4544-3) 42.4 38.2-49.6 [facility] SouthMean Corpuscular Fkrjnr5299-73-32 13:04:00* Test Item Value Reference Range Interpretation Comments Mean Corpuscular Volume (test code = 787-2) 83.5 81-99 [facility] Corpuscular Bumbofayta6126-90-21 13:04:00* Test Item Value Reference Range Interpretation Comments Mean Corpuscular Hemoglobin (test code = 785-6) 23.8 28-32 L [facility] Corpuscular Hemoglobin Concent 2019-10-16 13:04:00* Test Item Value Reference Range Interpretation Comments Mean Corpuscular Hemoglobin Concent (test code = 786-4) 28.5 31-35 L [facility] SouthRed Cell Distribution Zglpj0243-78-29 13:04:00* Test Item Value Reference Range Interpretation Comments Red Cell Distribution Width (test code = 71348-6) 17.4 11.7 -14.4 H [facility] SouthPlatelet Kiraa0946-98-78 13:04:00* Test Item Value Reference Range Interpretation Comments Platelet Count (test code = 777-3) 204 140-360 [facility] SouthNeutrophils (%) (Auto)2019-10-16 13:04:00 * Test Item Value Reference Range Interpretation Comments Neutrophils (%) (Auto) (test code = 27104-0) 88.9 38.7-80.0 H [facility] SouthLymphocytes (%) (Auto)2019-10-16 13:04:00 * Test Item Value Reference Range Interpretation Comments Lymphocytes (%) (Auto) (test code = 736-9) 4.5 18.0-39.1 L [facility] SouthMonocytes (%) (Auto)2019-10-16 13:04:00* Test Item Value Reference Range Interpretation Comments Monocytes (%) (Auto) (test code = 5905-5) 4.4 4.4-11.3 [facility] SouthEosinophils (%) (Auto)2019-10-16 13:04:00 * Test Item Value Reference Range Interpretation Comments Eosinophils (%) (Auto) (test code = 713-8) 0.0 0.0-6.0 [facility]Basophils (%) (Auto)2019-10-16 13:04:00* Test Item Value Reference Range Interpretation Comments Basophils (%) (Auto) (test code = 706-2) 0.1 0.0-1.0 [facility] SouthIM GRANULOCYTES %2019-10-16 13:04:00* Test Item Value Reference Range Interpretation Comments IM GRANULOCYTES % (test code = IM GRANULOCYTES %) 2.1 0.0- 1.0 H [facility] SouthNeutrophils # (Auto)2019-10-16 13:04:00* Test Item Value Reference Range Interpretation Comments Neutrophils # (Auto) (test code = 751-8) 10.8 2.1-6.9 H [facility] SouthLymphocytes # (Auto)2019-10-16 13:04:00* Test Item Value Reference Range Interpretation Comments Lymphocytes # (Auto) (test code = 81954-9) 0.6 1.0-3.2 L [facility] SouthMonocytes # (Auto)2019-10-16 13:04:00* Test Item Value Reference Range Interpretation Comments Monocytes # (Auto) (test code = 742-7) 0.5 0.2-0.8 [facility] SouthEosinophils # (Auto)2019-10-16 13:04:00* Test Item Value Reference Range Interpretation Comments Eosinophils # (Auto) (test code = 711-2) 0.0 0.0-0.4 [facility]Basophils # (Auto)2019-10-16 13:04:00* Test Item Value Reference Range Interpretation Comments Basophils # (Auto) (test code = 704-7) 0.0 0.0-0.1 [facility] SouthAbsolute Immature Granulocyte (auto 2019-10-16 13:04:00* Test Item Value Reference Range Interpretation Comments Absolute Immature Granulocyte (auto (bharat t code = Absolute Immature Granulocyte (auto) 0.26 0-0.[address] [facility] Ebehvtj2239-77-07 14:26:00* Test Item Value Reference Range Interpretation Comments Bedside Glucose (test code = 58610-0) 165 70-120 H Meter ID: [id number]. [facility] Glucose 2019-08-12 14:26:00* Test Item Value Reference Range Interpretation Comments Bedside Glucose (test code = 95797-7) 165 70-120 H Meter ID: [id number]. [facility] Glucose 2019-08-12 14:26:00* Test Item Value Reference Range Interpretation Comments Bedside Glucose (test code = 50796-6) 165 70-120 H Meter ID: [id number] [facility] Hospitalgnesium Level 2019-08-12 06:27:00* Test Item Value Reference Range Interpretation Comments Magnesium Level (test code = 98097-4) 2.0 1.3-2.1 [facility] Umqhv5363-81-00 06:27:00* Test Item Value Reference Range Interpretation Comments Magnesium Level (test code = 44290-3) 2.0 1.3-2.[address] [facility] Hospitalgnesium Smhyr6604-09-80 06:27:00* Test Item Value Reference Range Interpretation Comments Magnesium Level (test code = 25146-1) 2.0 1.3-2.1 [facility]odium Obhmr9253-66-96 05:33:00* Test Item Value Reference Range Interpretation Comments Sodium Level (test code = 2951-2) 142 136-145 [facility] SouthPotassium Itzoq6569-12-62 05:33:00* Test Item Value Reference Range Interpretation Comments Potassium Level (test code = 2823-3) 4.0 3.5-5.1 [facility] SouthChloride Iviwc0664-80-67 05:33:00* Test Item Value Reference Range Interpretation Comments Chloride Level (test code = 2075-0) 97 98-107 L [facility] SouthCarbon Dioxide Oftmv9847-69-93 05:33:00* Test Item Value Reference Range Interpretation Comments Carbon Dioxide Level (test code = 2028-9) 39 22-29 H [facility] SouthAnion Fga4724-06-28 05:33:00* Test Item Value Reference Range Interpretation Comments Anion Gap (test code = 58554-6) 10.0 8-16 [facility] SouthBlood Urea Mgndtudi1646-51-79 05:33:00* Test Item Value Reference Range Interpretation Comments Blood Urea Nitrogen (test code = 3094-0) 25 7-26 [facility] SouthCreatinine2019-10-17 05:33:00* Test Item Value Reference Range Interpretation Comments Creatinine (test code = 2160-0) 1.22 0.72-1.25 [facility] SouthBUN/Creatinine Ahvxs4700-66-83 05:33:00* Test Item Value Reference Range Interpretation Comments BUN/Creatinine Ratio (test code = 3097-3) 20 6-25 [facility] SouthEstimat Glomerular Filtration Rate 2019-08-12 05:33:00* Test Item Value Reference Range Interpretation Comments Estimat Glomerular Filtration Rate (test code = 513323358) 58 >60 L Ranges were taken from the National Kidney Disease Education Program and the [facility] [employer] literature.Reference ranges:60 or greater: Ykwdyl60-33 ( for 3 consecutive months): Chronic kidney disease 15 or less: Kidney failureCHRISTUS Spohn Hospital [facility] Christi – SouthGlucose Svfwm5694-77-41 05:33:00* Test Item Value Reference Range Interpretation Comments Glucose Level (test code = NVV7194) 113 74-118 [facility] SouthCalcium Drfge3338-57-31 05:33:00* Test Item Value Reference Range Interpretation Comments Calcium Level (test code = 29309-5) 9.0 8.4-10.2 [facility] SouthBlood Uslxzjc8849-75-51 20:49:00* Test Item Value Reference Range Interpretation Comments Blood Culture (test code = 26365629) NO GROWTH AFTER 5 DAYS, FINAL REPORT [facility] SouthBlood Jhduzoj8519-73-79 20:49:00* Test Item Value Reference Range Interpretation Comments Blood Culture (test code = 99148216) NO GROWTH AFTER 5 DAYS, FINAL REPORT [facility] SouthBlood Aoojjpi6926-01-05 20:49:00* Test Item Value Reference Range Interpretation Comments Blood Culture (test code = 16827655) NO GROWTH AFTER 5 DAYS, FINAL REPORT [facility] SouthELBOW RIGHT OVFXHFSF5176-38-23 07:24:00 [place] [address] Patient Name: STEVE BENEDICT MR #: [id number] : 1945 Age/Sex: 73/M Req #: [id number] Adm Physician: PERRY PERALES MD Ordered by: PERRY PERALES MD Report #: [id number] Location: [facility] Room/Bed: [place] [address] Procedure: [id number] DX /ELBOW RIGHT COMPLETE Exam Date: 08/10/19 Exam Time: 0600 REPORT STATUS: Signed ELBOW RIGHT COMPLETE - 3 views HISTORY: Pain COMPARISON: None available. FINDINGS: Bones: No acute displaced fracture. Osseous alignment is within normal limits. Joints: The joint spaces are well-maintained. Soft tissues: The soft tissues appear unremarkable. IMPRESSION: No acute radiographic abnormality. Signed by: Dr. Dakota Mireles MD on 08/10 7:25 AM Dictated By: DAKOTA MIRELES MD 4 Transcribed By: ERAN on 08/10/19724 COPY TO: PERRY PERALES MD CT BRAIN [id number] 06:19:00 [place] [address] Patient Name: STEVE BENEDICT MR #: [id number] : 1945 Age/Sex: 73/M Req #: [id number] [facility] Physician: PERRY PERALES MD Ordered by: PERRY PERALES MD Report #: [id number] Location: [facility] Room/Bed: [place] [address] Procedure: [id number] CT /CT BRAIN WO Exam Date: 08/10/19 Exam Time: 0550 REPORT STATUS: Signed EXAMINATION: Head CT without contrast. HISTORY:Status post fall. COMPARISON:CT brain from 05/27/2019. TECHNIQUE: Multidetector axial images were obtained f rom the foramen magnum to the vertex without contrast. The images were reconst ructed using brain and bone algorithms. Thin section brain images were reform atted into coronal and sagittal planes. Dose modulation, iterative reconstru ction, and/or weight based adjustment of the mA/kV was utilized to reduce the radiation dose to as low as reasonably achievable. Intravenous contrast: None IMAGE QUALITY: Suboptimal evaluation due to motion artifacts. F INDINGS: Skull/scalp: Moderate right frontoparietal scalp soft tissue xavier a/hematoma with overlying radiopaque foreign material. No soft tissue emphysem a. No acute depressed or displaced calvarial fracture. Parenchyma: Nonsp ecific few, supratentorial white matter hypodensity are likely related to smal l vessel ischemic changes. No acute hemorrhage, mass or acute major vascular t erritorial infarct. Arteries: No density suggestive of thrombosis. Dural sinuses: No abnormal density suggestive of thrombosis. Ventricles: Mild compensated dilatation due to volume loss. No hydrocephalus. Extra- axial spaces: No abnormal density. Brain volume: Mild generalized cere bral volume loss. Craniocervical junction: No mass, Chiari malformation, o r basilar invagination. Sella: No mass. Paranasal/mastoid sinuses : Mild mucosal thickening in left posterior ethmoid sinus. IMPRESSION: 1. Moderate right frontal parietal scalp soft tissue edema/hematoma. No ac demetrio fracture. 2. Suboptimal evaluation due to motion artifacts, despite t he limitation no gross acute intracranial abnormality. 3. Mild supratento rial white matter microvascular ischemic change and mild generalized cerebral volume loss. Signed by: Dr. Georgina Montero M.D. on 08/10/2019 6:24 AM Dictated By: GEORGINA MONTERO MD 3 Transcribed By: ERAN on 08/10/19623 COPY TO: PERRY KAUFMAN MD White Blood Ialmp3299-35-70 05:17:00* Test Item Value Reference Range Interpretation Comments White Blood Count (test code = 6690-2) 7.17 4.8-10.8 [facility] SouthRed Blood Mcwvx6954-81-63 05:17:00* Test Item Value Reference Range Interpretation Comments Red Blood Count (test code = 789-8) 4.07 4.3-5.7 L [facility] SouthHemoglobin2019-10-13 05:17:00* Test Item Value Reference Range Interpretation Comments Hemoglobin (test code = 12187-8) 9.5 14.0-18.0 L [facility] SouthHematocrit2019-10-13 05:17:00* Test Item Value Reference Range Interpretation Comments Hematocrit (test code = 4544-3) 33.6 38.2-49.6 L [facility] SouthMean Corpuscular Glcjqg8021-24-81 05:17:00* Test Item Value Reference Range Interpretation Comments Mean Corpuscular Volume (test code = 787-2) 82.6 81-99 [facility]Mean Corpuscular Ayazybpxvi7753-48-11 05:17:00* Test Item Value Reference Range Interpretation Comments Mean Corpuscular Hemoglobin (test code = 785-6) 23.3 28-32 L [facility] Corpuscular Hemoglobin Concent 2019-08-08 05:17:00* Test Item Value Reference Range Interpretation Comments Mean Corpuscular Hemoglobin Concent (test code = 786-4) 28.3 31-35 L [facility] SouthRed Cell Distribution Lpkwc9035-53-28 05:17:00* Test Item Value Reference Range Interpretation Comments Red Cell Distribution Width (test code = 93056-0) 17.3 11.7 -14.4 H [facility] SouthPlatelet Efxqu2026-23-85 05:17:00* Test Item Value Reference Range Interpretation Comments Platelet Count (test code = 777-3) 202 140-360 [facility] SouthNeutrophils (%) (Auto)2019-08-08 05:17:00 * Test Item Value Reference Range Interpretation Comments Neutrophils (%) (Auto) (test code = 28208-9) 90.9 38.7-80.0 H [facility] SouthLymphocytes (%) (Auto)2019-08-08 05:17:00 * Test Item Value Reference Range Interpretation Comments Lymphocytes (%) (Auto) (test code = 736-9) 5.6 18.0-39.1 L [facility] SouthMonocytes (%) (Auto)2019-08-08 05:17:00* Test Item Value Reference Range Interpretation Comments Monocytes (%) (Auto) (test code = 5905-5) 2.6 4.4-11.3 L [facility] SouthEosinophils (%) (Auto)2019-08-08 05:17:00 * Test Item Value Reference Range Interpretation Comments Eosinophils (%) (Auto) (test code = 713-8) 0.0 0.0-6.0 [facility] SouthBasophils (%) (Auto)2019-08-08 05:17:00* Test Item Value Reference Range Interpretation Comments Basophils (%) (Auto) (test code = 706-2) 0.1 0.0-1.0 [facility] SouthIM GRANULOCYTES %2019-08-08 05:17:00* Test Item Value Reference Range Interpretation Comments IM GRANULOCYTES % (test code = IM GRANULOCYTES %) 0.8 0.0- 1.0 [facility] SouthNeutrophils # (Auto)2019-08-08 05:17:00* Test Item Value Reference Range Interpretation Comments Neutrophils # (Auto) (test code = 751-8) 6.5 2.1-6.9 [facility] SouthLymphocytes # (Auto)2019-08-08 05:17:00* Test Item Value Reference Range Interpretation Comments Lymphocytes # (Auto) (test code = 46937-8) 0.4 1.0-3.2 L [facility] SouthMonocytes # (Auto)2019-08-08 05:17:00* Test Item Value Reference Range Interpretation Comments Monocytes # (Auto) (test code = 742-7) 0.2 0.2-0.8 [facility] SouthEosinophils # (Auto)2019-08-08 05:17:00* Test Item Value Reference Range Interpretation Comments Eosinophils # (Auto) (test code = 711-2) 0.0 0.0-0.4 [facility]Basophils # (Auto)2019-08-08 05:17:00* Test Item Value Reference Range Interpretation Comments Basophils # (Auto) (test code = 704-7) 0.0 0.0-0.1 [facility] SouthAbsolute Immature Granulocyte (auto 2019-08-08 05:17:00* Test Item Value Reference Range Interpretation Comments Absolute Immature Granulocyte (auto (bharat t code = Absolute Immature Granulocyte (auto) 0.06 0-0.1 [facility] SouthCreatine Kinase [id number] 15:54:00* Test Item Value Reference Range Interpretation Comments Creatine Kinase MB (test code = 60919-3) 2.60 0-5.0 [facility] SouthTroponin [id number] 15:54:00* Test Item Value Reference Range Interpretation Comments Troponin I (test code = TKN4958) 0.037 0-0.300 [facility] SouthCreatine Kinase HB9481-95-24 15:54:00* Test Item Value Reference Range Interpretation Comments Creatine Kinase MB (test code = 33126-4) 2.60 0-5.0 [facility] SouthTroponin [id number] 15:54:00* Test Item Value Reference Range Interpretation Comments Troponin I (test code = BLL1647) 0.037 0-0.300 [facility] SouthCreatine Kinase HQ1203-16-51 15:54:00* Test Item Value Reference Range Interpretation Comments Creatine Kinase MB (test code = 07182-5) 2.60 0-5.0 [facility] SouthTroponin [id number] 15:54:00* Test Item Value Reference Range Interpretation Comments Troponin I (test code = KGG5756) 0.037 0-0.300 [facility] SouthCreatine Atwpey6718-00-87 15:46:00* Test Item Value Reference Range Interpretation Comments Creatine Kinase (test code = 2157-6) 20 30-200 L [facility] SouthCreatine Uahqpn5256-66-37 15:46:00* Test Item Value Reference Range Interpretation Comments Creatine Kinase (test code = 2157-6) 20 30-200 L [facility] SouthCreatine Ghwtpm0498-59-26 15:46:00* Test Item Value Reference Range Interpretation Comments Creatine Kinase (test code = 2157-6) 20 30-200 L [facility] SouthTotal Oqjzsrrzg4613-94-80 08:24:00* Test Item Value Reference Range Interpretation Comments Total Bilirubin (test code = 1975-2) 0.2 0.2-1.2 [facility] SouthAspartate Amino Transf (AST/SGOT) 2019-08-06 08:24:00* Test Item Value Reference Range Interpretation Comments Aspartate Amino Transf (AST/SGOT) (test code = Aspartate Amino Transf (AST/SGOT)) 22 5-34 [facility] SouthAlanine Aminotransferase (ALT/SGPT) 2019-08-06 08:24:00* Test Item Value Reference Range Interpretation Comments Alanine Aminotransferase (ALT/SGPT) (test code = 1742-6) 30 0-55 [facility] SouthTotal Xovgrwq0719-44-68 08:24:00* Test Item Value Reference Range Interpretation Comments Total Protein (test code = 2885-2) 5.7 6.5-8.1 L [facility] SouthAlbumin2019-10-11 08:24:00* Test Item Value Reference Range Interpretation Comments Albumin (test code = 1751-7) 2.7 3.5-5.0 L [facility] SouthGlobulin2019-10-11 08:24:00* Test Item Value Reference Range Interpretation Comments Globulin (test code = 94300-6) 3.0 2.3-3.5 [facility]Albumin/Globulin Eflpe6956-24-79 08:24:00 * Test Item Value Reference Range Interpretation Comments Albumin/Globulin Ratio (test code = 1759-0) 0.9 0.8-2.0 [facility] SouthAlkaline Heqvkkozeug9666-42-47 08:24:00* Test Item Value Reference Range Interpretation Comments Alkaline Phosphatase (test code = 6768-6) 82 40-150 [facility] SouthCHEST SINGLE (PORTABLE)2019-08-06 06:57:00 [place] [address] Patient Name: STEVE BENEDICT MR #: [id number] : 1945 Age/Sex: 73/M Req #: [id number] Adm Physician: ROSALIE SHORT MD Ordered by: IBAN RAMOS MD Report #: [id number] Location: [facility] Room/Bed: [place] [address] Procedure: [id number] DX /CHEST SINGLE (PORTABLE) Exam Date: Exam Time: REPORT STATUS: Signed EXAMINATION: CHEST SINGLE (PORTABLE) INDICATION: Cough. Pneumonia. COMPARISON: 08/05/2019. FINDINGS: LINES/TUBES:None LUNGS:The lungs are hyperinflated. Patchy density in the lingula and left lower lobe is again obse rved. PLEURA:No pleural effusion or pneumothorax. MEDIASTINUM:The card iomediastinal silhouette is unchanged. BONES/SOFT TISSUES:No acute osseous injury. Old healed left rib fractures again observed. ABDOMEN:No free air under the diaphragm. IMPRESSION: No significant interval change. Emphysematous changes with lingular and left basilar patchy airspace disease. Signed by: Dr. Naomy Arizmendi M.D. on 08/06/2019 7:03 AM Dict ated By: ANNE MARIE ARIZMENDI MD, MD 2 Transcribed By: ERAN on 08/06/19702 COPY TO: IBAN RAMOS MD Influenza Virus Types A,B Qmnsrlq5986-06-87 00:02:00* Test Item Value Reference Range Interpretation Comments Influenza Virus Types A,B Antigen (test code = 80712-9) POSITIVE FLU A NEGATIVE H Results called to at 0001 on 08/06/19 by [facility] [place].Results called to infection control at 0001 on 08/06/19 by [facility] SouthInfluenza Virus Types A,B Jkxxrja4671-50-12 00:02:00* Test Item Value Reference Range Interpretation Comments Influenza Virus Types A,B Antigen (test code = 53556-5) POSITIVE FLU A NEGATIVE H Results called to at 0001 on 08/06/19 by Phylicia Sumair. [place].Results called to infection control at 0001 on 08/06/19 by Phylicia Sumair.[facility] SouthInfluenza Virus Types A,B Umqkhzm7933-26-79 00:02:00* Test Item Value Reference Range Interpretation Comments Influenza Virus Types A,B Antigen (test code = 26788-9) POSITIVE FLU A NEGATIVE H Results called to at 0001 on 08/06/19 by [facility]. [place].Results called to infection control at 0001 on 08/06/19 by [facility] SouthArterial Blood [id number] 23:59:00* Test Item Value Reference Range Interpretation Comments Arterial Blood pH (test code = 2744-1) 7.39 7.31-7.41 [facility] SouthArterial Blood Partial Pressure CO2 2019-08-05 23:59:00* Test Item Value Reference Range Interpretation Comments Arterial Blood Partial Pressure CO2 (test code = 2019-05) 58 41-51 H [facility] SouthArterial Blood Partial Pressure O2 2019-08-05 23:59:00* Test Item Value Reference Range Interpretation Comments Arterial Blood Partial Pressure O2 (test code = 2019-05) 98 80-105 [facility] SouthArterial Blood [id number] 23:59:00* Test Item Value Reference Range Interpretation Comments Arterial Blood HCO3 (test code = 1960-4) 35 23-28 H [facility] SouthArterial Blood Base Iecyyj3708-62-28 23:59:00* Test Item Value Reference Range Interpretation Comments Arterial Blood Base Excess (test code = 1925-7) 10.0 -2-3 H [facility] SouthArterial Blood Oxygen Saturation 2019-08-05 23:59:00* Test Item Value Reference Range Interpretation Comments Arterial Blood Oxygen Saturation (test code = 2708-6) 97.0 95-98 [facility] SouthFiO22019-10-10 23:59:00* Test Item Value Reference Range Interpretation Comments FiO2 (test code = FiO2) 36 Pt on 4L [place].[facility] SouthCT CHEST [id number] 22:47:00 [place] [address] Patient Name: STEVE BENEDICT MR #: [id number] : 1945 Age/Sex: 73/M Req #: [id number] Adm Physician: Ordered by: IBAN RAMOS MD Report #: [id number] Location: ER Room/Bed: Procedure: [id number] CT/ CT CHEST WO Exam Date: 08/05/19 Exam Time: 2226 REPORT STATUS: Signed EXAM: CT Chest WITHOUT contrast 08/05/2019 10:00 PM INDICATION: Pneumonia. Cough. Short of b reath. COMPARISON: 01/05/2019. TECHNIQUE: Chest was scanned utilizing a mu ltidetector helical scanner from the lung apex through the level of the adrena l glands without administration of IV contrast. Absence of intravenous contras t decreases sensitivity for detection of lymphadenopathy and vascular patholog y. Coronal and sagittal reformations were obtained. Routine protocol was perfo rmed. IV CONTRAST: None RADIATION DOSE: Total DLP: 590 .78 mGy*cm Estimated effective dose: (DLP x 0.014 x size factor) m Sv COMPLICATIONS: None FINDINGS: LINES/ TUBES: None. LUNGS AND AIRWAYS: Bilateral pulmonary emphysematous changes predominantly i nvolving the upper lobes. Irregular patchy density in the inferior lingula and left lung base posteriorly suggestive of pleural parenchymal scarring with mild bronchiectasis. There is also mild scarring in the posterior right lung base. Airways are normal. PLEURA: The pleural spaces are clear. HEART AND MEDIASTINUM: The thyroid gland is normal. No mediastinal, hilar or axillary lymphadenopathy. The heart is normal in size.. There is no pericardial effus ion. There are mild atherosclerotic calcifications in the aorta and coronary arteries. UPPER ABDOMEN: Limited non-contrast views of the upper abdomen sh ow a partially visualized cyst in the left kidney, as well as 2 punctate nonob structing left renal calculi. Hepatic steatosis. Probable splenomegaly.. The a drenal glands are normal. BONES: Lower cervical fusion hardware partially visualized. Remote posterior left-sided rib fractures. Multilevel degenerative changes of the imaged thoracolumbar spine with thoracic spondylosis. SOFT TISSUES: Unremarkable. IMPRESSION: Bilateral predominantly upper lobe pulmonary emphysema. Irregular densities in the lingula and lung bases, left greater right suggestive of pleural parenchymal scarring. Signed by: Dr. Naomy Arizmendi M.D. on 08/05/2019 11:15 PM Dictated By: ANNE MARIE RAMÍREZ MD, MD 14 Tra nscribed By: ERAN on 08/05/192314 COPY TO: IBAN RAMOS MD CHEST SINGLE (PORTABLE)2019-08-05 22:19:00 [place] [address] Patient Name: STEVE BENEDICT MR #: [id number] : 1945 Age/Sex: 73/M Req #: [id number] Adm Physician: Ordered by: IBAN RAMOS MD Report #: [id number] Location: ER Room/Bed: Procedure: [id number] DX/ CHEST SINGLE (PORTABLE) Exam Date: 08/05/19 Exam Jose E e: 2135 REPORT STATUS: Signed EX AMINATION: CHEST SINGLE (PORTABLE) INDICATION: Cough. Hypotension. COMPARISON: 06/16/2019. FINDINGS: LINES/TUBES:None LUNGS:The lungs are moderately inflated. Patchy density in the lingula and left lower lobe mildly increased since the prior examination. PLEURA:No pleural effusi on or pneumothorax. MEDIASTINUM:The cardiomediastinal silhouette appears un changed in size and shape. BONES/SOFT TISSUES:No acute osseous injury. Ol d healed left rib fractures again observed. ABDOMEN:No free air under the diaphragm. IMPRESSION: Patchy density in the lingula and left lower lobe appears somewhat increased since the prior examination, which may represe nt increased scarring, however, cannot exclude superimposed infection the prop er clinical setting. Signed by: Dr. Naomy Arizmendi M.D. on 10:22 PM Dictated By: ANNE MARIE ARIZMENDI MD, MD 21 Transcribed By: ERAN on 08/05/192221 COPY TO: IBAN RAMOS MD Urine UVI9908-08-88 21:44:00* Test Item Value Reference Range Interpretation Comments Urine WBC (test code = 5821-4) 0-5 0-5 [facility] SouthUrine [id number] 21:44:00* Test Item Value Reference Range Interpretation Comments Urine RBC (test code = 57440-6) NONE 0-5 [facility] SouthUrine Djoaqakq4017-43-74 21:44:00* Test Item Value Reference Range Interpretation Comments Urine Bacteria (test code = 57934-7) NONE NONE [facility] South[facility] Epithelial Dkudb8978-41-43 21:44:00 * Test Item Value Reference Range Interpretation Comments Urine Epithelial Cells (test code = 36254-7) FEW NONE [facility] SouthU[facility] [id number] 21:44:00* Test Item Value Reference Range Interpretation Comments Urine WBC (test code = 5821-4) 0-5 0-5 [facility] [id number] 21:44:00* Test Item Value Reference Range Interpretation Comments Urine RBC (test code = 30364-9) NONE 0-5 [facility] Pxhcrzsz0310-22-55 21:44:00* Test Item Value Reference Range Interpretation Comments Urine Bacteria (test code = 05868-2) NONE NONE [facility] Epithelial Eakyt9505-09-30 21:44:00 * Test Item Value Reference Range Interpretation Comments Urine Epithelial Cells (test code = 29248-6) FEW NONE [facility] South[facility] [id number] 21:44:00* Test Item Value Reference Range Interpretation Comments Urine WBC (test code = 5821-4) 0-5 0-5 [facility] [id number] 21:44:00* Test Item Value Reference Range Interpretation Comments Urine RBC (test code = 28406-9) NONE 0-5 [facility] Lloqlrrx8747-78-05 21:44:00* Test Item Value Reference Range Interpretation Comments Urine Bacteria (test code = 05133-6) NONE NONE [facility] Epithelial Gssix6979-73-75 21:44:00 * Test Item Value Reference Range Interpretation Comments Urine Epithelial Cells (test code = 08722-6) FEW NONE [facility] Gyifw4989-67-84 21:38:00* Test Item Value Reference Range Interpretation Comments Urine Color (test code = 5778-6) YELLOW YELLOW [facility] Fydzhsl2919-03-99 21:38:00* Test Item Value Reference Range Interpretation Comments Urine Clarity (test code = 95511-2) SL CLOUDY CLEAR H [facility] Specific Rbejunq4680-46-53 21:38:00 * Test Item Value Reference Range Interpretation Comments Urine Specific [place] (test code = 5811-5) 1.010 1.010-1.02 5 [facility] bY1039-11-30 21:38:00* Test Item Value Reference Range Interpretation Comments Urine pH (test code = 39260-4) 6 5-7 [facility] Leukocyte Ohbnpueh0278-42-42 21:38:00* Test Item Value Reference Range Interpretation Comments Urine Leukocyte Esterase (test code = 5799-2) NEGATIVE NEGATIVE [facility] Jpoughz3238-46-32 21:38:00* Test Item Value Reference Range Interpretation Comments Urine Nitrite (test code = 18099-3) NEGATIVE NEGATIVE [facility] Fxiapuz2973-58-81 21:38:00* Test Item Value Reference Range Interpretation Comments Urine Protein (test code = 5804-0) NEGATIVE NEGATIVE [facility] Glucose (UA)2019-08-05 21:38:00* Test Item Value Reference Range Interpretation Comments Urine Glucose (UA) (test code = 2349-9) NEGATIVE NEGATIVE [facility] Qmjhnya1573-45-26 21:38:00* Test Item Value Reference Range Interpretation Comments Urine Ketones (test code = 72012-0) NEGATIVE NEGATIVE [facility] Fkqqortqibik7738-82-23 21:38:00* Test Item Value Reference Range Interpretation Comments Urine Urobilinogen (test code = 07820-9) 0.2 0.2-1 [facility] Xjgttzxgk7588-35-12 21:38:00* Test Item Value Reference Range Interpretation Comments Urine Bilirubin (test code = 1978-6) NEGATIVE NEGATIVE [facility] Kzzhg0665-60-69 21:38:00* Test Item Value Reference Range Interpretation Comments Urine Blood (test code = 65982-6) NEGATIVE NEGATIVE [facility] Pfsor8846-89-52 21:38:00* Test Item Value Reference Range Interpretation Comments Urine Color (test code = 5778-6) YELLOW YELLOW [facility] Mzztpvf1731-43-42 21:38:00* Test Item Value Reference Range Interpretation Comments Urine Clarity (test code = 07578-6) SL CLOUDY CLEAR H [facility] Specific Vtdeexz5802-24-21 21:38:00 * Test Item Value Reference Range Interpretation Comments Urine Specific [place] (test code = 5811-5) 1.010 1.010-1.02 5 [facility] tG1702-63-35 21:38:00* Test Item Value Reference Range Interpretation Comments Urine pH (test code = 21848-4) 6 5-7 [facility] Leukocyte Hzmgonkk6078-40-86 21:38:00* Test Item Value Reference Range Interpretation Comments Urine Leukocyte Esterase (test code = 5799-2) NEGATIVE NEGATIVE [facility] Npqusvf8988-73-89 21:38:00* Test Item Value Reference Range Interpretation Comments Urine Nitrite (test code = 74394-0) NEGATIVE NEGATIVE [facility] Iumeacy6688-25-29 21:38:00* Test Item Value Reference Range Interpretation Comments Urine Protein (test code = 5804-0) NEGATIVE NEGATIVE [facility] Glucose (UA)2019-08-05 21:38:00* Test Item Value Reference Range Interpretation Comments Urine Glucose (UA) (test code = 2349-9) NEGATIVE NEGATIVE [facility] Utqyrbl8128-80-29 21:38:00* Test Item Value Reference Range Interpretation Comments Urine Ketones (test code = 71069-3) NEGATIVE NEGATIVE [facility] Yxxhewmttgbu2878-17-30 21:38:00* Test Item Value Reference Range Interpretation Comments Urine Urobilinogen (test code = 76061-9) 0.2 0.2-1 [facility] Gincupshu1911-70-98 21:38:00* Test Item Value Reference Range Interpretation Comments Urine Bilirubin (test code = 1978-6) NEGATIVE NEGATIVE [facility] Tqadu3697-51-14 21:38:00* Test Item Value Reference Range Interpretation Comments Urine Blood (test code = 36195-5) NEGATIVE NEGATIVE [facility] Plppa9988-11-65 21:38:00* Test Item Value Reference Range Interpretation Comments Urine Color (test code = 5778-6) YELLOW YELLOW [facility] Mdrtakn1047-22-73 21:38:00* Test Item Value Reference Range Interpretation Comments Urine Clarity (test code = 62981-2) SL CLOUDY CLEAR H [facility] Specific Grjtkfp8850-24-49 21:38:00 * Test Item Value Reference Range Interpretation Comments Urine Specific [place] (test code = 5811-5) 1.010 1.010-1.02 5 [facility] uS2344-77-69 21:38:00* Test Item Value Reference Range Interpretation Comments Urine pH (test code = 61753-4) 6 5-7 [facility] Leukocyte Mybrpmgl4109-38-40 21:38:00* Test Item Value Reference Range Interpretation Comments Urine Leukocyte Esterase (test code = 5799-2) NEGATIVE NEGATIVE [facility] Gfxjpvq8396-59-87 21:38:00* Test Item Value Reference Range Interpretation Comments Urine Nitrite (test code = 43616-7) NEGATIVE NEGATIVE [facility] Ywquenc4084-33-23 21:38:00* Test Item Value Reference Range Interpretation Comments Urine Protein (test code = 5804-0) NEGATIVE NEGATIVE [facility] Glucose (UA)2019-08-05 21:38:00* Test Item Value Reference Range Interpretation Comments Urine Glucose (UA) (test code = 2349-9) NEGATIVE NEGATIVE [facility] Qlgsinw0188-40-50 21:38:00* Test Item Value Reference Range Interpretation Comments Urine Ketones (test code = 73413-2) NEGATIVE NEGATIVE [facility] Wczrqughkzlo2834-48-95 21:38:00* Test Item Value Reference Range Interpretation Comments Urine Urobilinogen (test code = 27809-9) 0.2 0.2-1 [facility] Ozgmzjnyy7852-53-12 21:38:00* Test Item Value Reference Range Interpretation Comments Urine Bilirubin (test code = 1978-6) NEGATIVE NEGATIVE [facility] Ohreb4355-59-01 21:38:00* Test Item Value Reference Range Interpretation Comments Urine Blood (test code = 66783-7) NEGATIVE NEGATIVE [facility] SouthB-Type Natriuretic Dmjxlqm5826-33-91 21:13:00* Test Item Value Reference Range Interpretation Comments B-Type Natriuretic Peptide (test code = 43105-9) 217.3 0-100 H [facility] SouthB-Type Natriuretic Aapfgwo4414-18-92 21:13:00* Test Item Value Reference Range Interpretation Comments B-Type Natriuretic Peptide (test code = 02521-0) 217.3 0-100 H [facility] SouthB-Type Natriuretic Gmcywgn9476-38-26 21:13:00* Test Item Value Reference Range Interpretation Comments B-Type Natriuretic Peptide (test code = 79474-4) 217.3 0-100 H [facility] SouthLactic Acid Yktal3018-60-29 20:57:00* Test Item Value Reference Range Interpretation Comments Lactic Acid Level (test code = Lactic Acid Level) 7.4 4.5- 19.8 [facility] SouthL[facility] Acid Zdmnl7654-73-58 20:57:00* Test Item Value Reference Range Interpretation Comments Lactic Acid Level (test code = Lactic Acid Level) 7.4 4.5- 19.8 [facility] SouthL[facility] Acid Omylx7351-35-84 20:57:00* Test Item Value Reference Range Interpretation Comments Lactic Acid Level (test code = Lactic Acid Level) 7.4 4.5- 19.8 [facility] SouthProthrombin Zwdi2004-21-11 20:56:00* Test Item Value Reference Range Interpretation Comments Prothrombin Time (test code = 5902-2) 19.3 11.9-14.5 H [facility] SouthProthromb Time International Ratio 2019-08-05 20:56:00* Test Item Value Reference Range Interpretation Comments Prothromb Time International Ratio (test code = 6301-6) 1.56 Oral Anticoagulant Therapy INR Values:1. Low Intensity Therapy 1.5 - 2.02 . Moderate Intensity Therapy 2.0 - 3.03. High Intensity Therapy(1) 2.5 - 3. 54. High Intensity Therapy(2) 3.0 - 4.05. Panic Value INR > 5.0 [facility] SouthActivated Partial Thromboplast Time 2019-08-05 20:56:00* Test Item Value Reference Range Interpretation Comments Activated Partial Thromboplast Time (test code = 23043-3) 46.8 23.8-35.5 H [facility] SouthProthrombin Yeph8152-62-92 20:56:00* Test Item Value Reference Range Interpretation Comments Prothrombin Time (test code = 5902-2) 19.3 11.9-14.5 H [facility] SouthProthromb Time International Ratio 2019-08-05 20:56:00* Test Item Value Reference Range Interpretation Comments Prothromb Time International Ratio (test code = 6301-6) 1.56 Oral Anticoagulant Therapy INR Values:1. Low Intensity Therapy 1.5 - 2.02 . Moderate Intensity Therapy 2.0 - 3.03. High Intensity Therapy(1) 2.5 - 3. 54. High Intensity Therapy(2) 3.0 - 4.05. Panic Value INR > 5.0 [facility] SouthAct[facility] Partial Thromboplast Time 2019-08-05 20:56:00* Test Item Value Reference Range Interpretation Comments Activated Partial Thromboplast Time (test code = 33088-6) 46.8 23.8-35.5 H [facility] SouthProthrombin Vlrl9920-11-68 20:56:00* Test Item Value Reference Range Interpretation Comments Prothrombin Time (test code = 5902-2) 19.3 11.9-14.5 H [facility] SouthProthromb Time International Ratio 2019-08-05 20:56:00* Test Item Value Reference Range Interpretation Comments Prothromb Time International Ratio (test code = 6301-6) 1.56 Oral Anticoagulant Therapy INR Values:1. Low Intensity Therapy 1.5 - 2.02 . Moderate Intensity Therapy 2.0 - 3.03. High Intensity Therapy(1) 2.5 - 3. 54. High Intensity Therapy(2) 3.0 - 4.05. Panic Value INR > 5.0 [facility] Partial Thromboplast Time 2019-08-05 20:56:00* Test Item Value Reference Range Interpretation Comments Activated Partial Thromboplast Time (test code = 45734-9) 46.8 23.8-35.5 H [facility] SouthRenin2019-08-24 06:18:00* Test Item Value Reference Range Interpretation Comments Renin (test code = 2915-7) 5.618 0.167-5.380 H This test was developed and its performance characteristicsdetermined by [employer] . It has not been cleared orapproved by the Food and Drug Administration.Perform ed at: [address] [id number] Dir chepe: Charanjit Godwin MD, Phone: [phone] [facility]ohn [facility]i – SouthRenin2019-08-24 06:18:00* Test Item Value Reference Range Interpretation Comments Renin (test code = 2915-7) 5.618 0.167-5.380 H This test was developed and its performance characteristicsdetermined by [employer] . It has not been cleared orapproved by the Food and Drug Administration.Perform ed at: [address] [id number] Dir chepe: Charanjit Godwin MD, Phone: [phone] Spohn Hospital [facility] Christi – SouthRenin2019-08-24 06:18:00* Test Item Value Reference Range Interpretation Comments Renin (test code = 2915-7) 5.618 0.167-5.380 H This test was developed and its performance characteristicsdetermined by [employer] . It has not been cleared orapproved by the Food and Drug Administration.Perform ed at: [address] [id number] Dir chepe: Charanjit Godwin MD, Phone: [phone] [facility]2019-08-21 22:03:00* Test Item Value Reference Range Interpretation Comments Aldosterone (test code = 1763-2) 2.5 0.0-30.0 This test was developed and its performance characteristicsdetermined by [employer] . It has not been cleared orapproved by the Food and Drug Administration.Perform ed at: [address] [id number] Dir chepe: Charanjit Godwin MD, Phone: [phone] Hermann Memorial City Medical Centerosterone2019-08-21 22:03:00* Test Item Value Reference Range Interpretation Comments Aldosterone (test code = 1763-2) 2.5 0.0-30.0 This test was developed and its performance characteristicsdetermined by [employer] . It has not been cleared orapproved by the Food and Drug Administration.Perform ed at: [address] [id number] Dir chepe: Charanjit Godwin MD, Phone: [phone] [facility]2019-08-21 22:03:00* Test Item Value Reference Range Interpretation Comments Aldosterone (test code = 1763-2) 2.5 0.0-30.0 This test was developed and its performance characteristicsdetermined by [employer] . It has not been cleared orapproved by the Food and Drug Administration.Perform ed at: [address] [id number] Dir chepe: Charanjit Godwin MD, Phone: [phone] [facility] CenterDixin Ijevq8685-71-26 17:40:00* Test Item Value Reference Range Interpretation Comments Digoxin Level (test code = 49751-5) < 0.30 0.8-2.0 L [facility] SouthDixin Deeku2799-05-34 17:40:00* Test Item Value Reference Range Interpretation Comments Digoxin Level (test code = 06523-5) < 0.30 0.8-2.0 L [facility]2019-08-21 17:40:00* Test Item Value Reference Range Interpretation Comments Digoxin Level (test code = 88106-2) < 0.30 0.8-2.0 L [facility] Jrurj5185-77-39 17:40:00* Test Item Value Reference Range Interpretation Comments Digoxin Level (test code = 58557-3) < 0.30 0.8-2.0 L [facility] SouthBedside Wrgnkpg6086-71-85 16:28:00* Test Item Value Reference Range Interpretation Comments Bedside Glucose (test code = 50911-6) 119 70-120 Meter ID: [id number] [facility] Center[facility] 2019-06-16 16:12:00 [place] [address] Patient Name: STEVE BENEDICT MR #: [id number] : 1945 Age/Sex: 73/M Req #: [id number] Adm Physician: ROSALIE SHORT MD Ordered by: Samara aDs [employer] DIRECTOR Report #: [id number] Location: MED/SURG3 Room/Bed: [facility] Procedure: [id number] D X/MODIFIED BA. SWALLOW Exam Date: 06/16/19 Exam Time : 1110 REPORT STATUS: Signed Modified barium swallow, 06/16/2019. History: Aspiration. Fluoro jose e e: 2.3 min. Dose: 17.3 mGy (KARIME) Technique: Fluoroscopy was performed by manager of radiology. A radiologist was not present for exam. Fluoroscopic observat ion and imaging of the oral cavity, oropharynx, and hypopharynx was performed in the lateral projection during swallowing of liquids and solids, administere d by speech pathology. See speech pathologist report for findings. Signed by: Jama Bertrand on 06/16/2019 4:12 PM Dictated By: JAMA BERTRAND MD El ectronically Signed By: JAMA BERTRAND MD on 06/16/19 161 Transcribed By: ENDY RIVERA on 06/16/191611 COPY TO: SAMARA DAS NP CHEST SINGLE (PORTABLE)2019-06-16 08:59:00 [place] [address] Patient Name: STEVE BENEDICT MR #: [id number] : 1945 Age/Sex: 73/M Req #: [id number] [facility] Physician: ROSALIE SHORT MD Ordered by: HARPAL RESENDEZ MD Report #: [id number] Location: [facility] Room/Bed: [facility] Procedure: [id number] DX/CHEST SINGLE (PORTABLE) Exam Date: 06/16/19 Exam Time: 0600 REPORT STATUS: Signed Chest, 1 view, 06/16/2019. History: Atelectasis. Comparison: . Findings: The cardiomediastinal silhouette and pulmonary vasculat ure are within normal limits for a portable exam. Linear opacities are present in the lung bases. There is no focal consolidation or pleural effusion. There are no acute osseous or soft tissue abnormalities. Impression: Biba silar atelectasis. Signed by: Jama Bertrand on 06/16/2019 8:59 AM Di ctated By: JAMA BERTRAND MD 8 COPY TO: XIN RESENDEZ MD, ABI Sodium Prpon6482-85-26 06:10:00* Test Item Value Reference Range Interpretation Comments Sodium Level (test code = 2951-2) 140 136-145 [facility]Potassium Olanj7173-16-78 06:10:00* Test Item Value Reference Range Interpretation Comments Potassium Level (test code = 2823-3) 3.7 3.5-5.1 [facility] SouthChloride Hywwt2364-21-64 06:10:00* Test Item Value Reference Range Interpretation Comments Chloride Level (test code = 2075-0) 97 98-107 L [facility] SouthCarbon Dioxide Vixev0786-39-89 06:10:00* Test Item Value Reference Range Interpretation Comments Carbon Dioxide Level (test code = 2028-9) 36 22-29 H [facility] SouthAnion Mkj4723-08-98 06:10:00* Test Item Value Reference Range Interpretation Comments Anion Gap (test code = 08269-4) 10.7 8-16 [facility] SouthBlood Urea Hmirdxqk9034-53-64 06:10:00* Test Item Value Reference Range Interpretation Comments Blood Urea Nitrogen (test code = 3094-0) 32 7-26 H [facility] SouthCreatinine2019-08-21 06:10:00* Test Item Value Reference Range Interpretation Comments Creatinine (test code = 2160-0) 1.25 0.72-1.25 [facility] SouthBUN/Creatinine Tlkxz6090-64-78 06:10:00* Test Item Value Reference Range Interpretation Comments BUN/Creatinine Ratio (test code = 3097-3) 26 6-25 H [facility] SouthEstimat Glomerular Filtration Rate 2019-06-16 06:10:00* Test Item Value Reference Range Interpretation Comments Estimat Glomerular Filtration Rate (test code = 311278937) 56 >60 L Ranges were taken from the National Kidney Disease Education Program and the [facility] literature.Reference ranges:60 or greater: Imqpka00-15 ( for 3 consecutive months): Chronic kidney disease 15 or less: Kidney failureCHRISTUS Spohn Hospital Corpus Christi – SouthGlucose Ckhuz6451-89-26 06:10:00* Test Item Value Reference Range Interpretation Comments Glucose Level (test code = HPJ8800) 114 74-118 [facility] SouthCalcium Pvvud7914-46-05 06:10:00* Test Item Value Reference Range Interpretation Comments Calcium Level (test code = 91311-2) 9.5 8.4-10.2 [facility] SouthMagnesium Dmpwi9935-79-32 06:10:00* Test Item Value Reference Range Interpretation Comments Magnesium Level (test code = 42713-4) 1.9 1.3-2.1 [facility] SouthWhite Blood Zqoaq3784-95-63 05:44:00* Test Item Value Reference Range Interpretation Comments White Blood Count (test code = 6690-2) 4.82 4.8-10.8 [facility] SouthRed Blood Mhcqj5731-71-32 05:44:00* Test Item Value Reference Range Interpretation Comments Red Blood Count (test code = 789-8) 3.55 4.3-5.7 L [facility] SouthHemoglobin2019-08-21 05:44:00* Test Item Value Reference Range Interpretation Comments Hemoglobin (test code = 50094-9) 9.1 14.0-18.0 L [facility] SouthHematocrit2019-08-21 05:44:00* Test Item Value Reference Range Interpretation Comments Hematocrit (test code = 4544-3) 31.3 38.2-49.6 L [facility] SouthMean Corpuscular Pqlzmw4961-34-23 05:44:00* Test Item Value Reference Range Interpretation Comments Mean Corpuscular Volume (test code = 787-2) 88.2 81-99 [facility] SouthMean Corpuscular Qyvdlzbgnq3809-57-76 05:44:00* Test Item Value Reference Range Interpretation Comments Mean Corpuscular Hemoglobin (test code = 785-6) 25.6 28-32 L [facility] SouthMean Corpuscular Hemoglobin Concent 2019-06-16 05:44:00* Test Item Value Reference Range Interpretation Comments Mean Corpuscular Hemoglobin Concent (test code = 786-4) 29.1 31-35 L [facility] SouthRed Cell Distribution Txwkg3477-93-55 05:44:00* Test Item Value Reference Range Interpretation Comments Red Cell Distribution Width (test code = 28669-0) 14.7 11.7 -14.4 H [facility] SouthPlatelet Eairp5195-27-08 05:44:00* Test Item Value Reference Range Interpretation Comments Platelet Count (test code = 777-3) 252 140-360 [facility] SouthNeutrophils (%) (Auto)2019-06-16 05:44:00 * Test Item Value Reference Range Interpretation Comments Neutrophils (%) (Auto) (test code = 43752-6) 67.0 38.7-80.0 [facility] SouthLymphocytes (%) (Auto)2019-06-16 05:44:00 * Test Item Value Reference Range Interpretation Comments Lymphocytes (%) (Auto) (test code = 736-9) 16.0 18.0-39.1 L [facility] SouthMonocytes (%) (Auto)2019-06-16 05:44:00* Test Item Value Reference Range Interpretation Comments Monocytes (%) (Auto) (test code = 5905-5) 9.8 4.4-11.3 [facility] SouthEosinophils (%) (Auto)2019-06-16 05:44:00 * Test Item Value Reference Range Interpretation Comments Eosinophils (%) (Auto) (test code = 713-8) 6.4 0.0-6.0 H [facility] SouthBasophils (%) (Auto)2019-06-16 05:44:00* Test Item Value Reference Range Interpretation Comments Basophils (%) (Auto) (test code = 706-2) 0.6 0.0-1.0 [facility] SouthIM GRANULOCYTES %2019-06-16 05:44:00* Test Item Value Reference Range Interpretation Comments IM GRANULOCYTES % (test code = IM GRANULOCYTES %) 0.2 0.0- 1.0 [facility] SouthNeutrophils # (Auto)2019-06-16 05:44:00* Test Item Value Reference Range Interpretation Comments Neutrophils # (Auto) (test code = 751-8) 3.2 2.1-6.9 [facility] SouthLymphocytes # (Auto)2019-06-16 05:44:00* Test Item Value Reference Range Interpretation Comments Lymphocytes # (Auto) (test code = 40270-2) 0.8 1.0-3.2 L [facility] SouthMonocytes # (Auto)2019-06-16 05:44:00* Test Item Value Reference Range Interpretation Comments Monocytes # (Auto) (test code = 742-7) 0.5 0.2-0.8 [facility] SouthEosinophils # (Auto)2019-06-16 05:44:00* Test Item Value Reference Range Interpretation Comments Eosinophils # (Auto) (test code = 711-2) 0.3 0.0-0.4 [facility] SouthBasophils # (Auto)2019-06-16 05:44:00* Test Item Value Reference Range Interpretation Comments Basophils # (Auto) (test code = 704-7) 0.0 0.0-0.1 [facility] SouthAbsolute Immature Granulocyte (auto 2019-06-16 05:44:00* Test Item Value Reference Range Interpretation Comments Absolute Immature Granulocyte (auto (bharat t code = Absolute Immature Granulocyte (auto) 0.01 0-0.1 [facility] SouthB-Type Natriuretic Dxjignt4122-35-70 03:31:00* Test Item Value Reference Range Interpretation Comments B-Type Natriuretic Peptide (test code = 55734-1) 630.7 0-100 H [facility] Isufnzet4186-30-09 11:53:00* Test Item Value Reference Range Interpretation Comments Total Cortisol (test code = 2143-6) 5.5 . Cortisol AM 6.2 - 19.4 Co rtisol PM 2.3 - 11.9Performed at: [address] [id number] Director: Tito Rodriguez MD, Phone: [phone] Hermann [facility] Tfplhpnl8222-43-45 11:53:00* Test Item Value Reference Range Interpretation Comments Total Cortisol (test code = 2143-6) 5.5 . Cortisol AM 6.2 - 19.4 Co rtisol PM 2.3 - 11.9Performed at: [address] [id number] Director: Tito Rodriguez MD, Phone: [phone] Hermann [facility] Cxtgazmv6941-63-67 11:53:00* Test Item Value Reference Range Interpretation Comments Total Cortisol (test code = 2143-6) 5.5 . Cortisol AM 6.2 - 19.4 Co rtisol PM 2.3 - 11.9Performed at: [address] [id number] Director: Tito Rodriguez MD, Phone: [phone] Hermann [facility] Ibffgaff0465-01-90 11:53:00* Test Item Value Reference Range Interpretation Comments Total Cortisol (test code = 2143-6) 5.5 . Cortisol AM 6.2 - 19.4 Co rtisol PM 2.3 - 11.9Performed at: [address] [id number] Director: Tito Rodriguez MD, Phone: [phone] Spohn Hospital Corpus Christi – SouthPhosphorus Tsxxu2117-17-81 05:15:00* Test Item Value Reference Range Interpretation Comments Phosphorus Level (test code = QTR1956) 2.7 2.3-4.7 [facility] SouthPhosphorus Jawlz1107-61-09 05:15:00* Test Item Value Reference Range Interpretation Comments Phosphorus Level (test code = UJK3756) 2.7 2.3-4.7 [facility] SouthPhosphorus Iynxa9543-05-09 05:15:00* Test Item Value Reference Range Interpretation Comments Phosphorus Level (test code = JIB1520) 2.7 2.3-4.7 [facility] SouthPhosphorus Etmtr2271-55-59 05:15:00* Test Item Value Reference Range Interpretation Comments Phosphorus Level (test code = OLQ1877) 2.7 2.3-4.7 [facility] SouthBlood Exvpxod0424-68-93 19:12:00* Test Item Value Reference Range Interpretation Comments Blood Culture (test code = 10145159) NO GROWTH AFTER 72 HOURS [facility] SouthTotal Xosisswwo6772-48-30 07:09:00* Test Item Value Reference Range Interpretation Comments Total Bilirubin (test code = 1975-2) 0.4 0.2-1.2 [facility] SouthAspartate Amino Transf (AST/SGOT) 2019-06-14 07:09:00* Test Item Value Reference Range Interpretation Comments Aspartate Amino Transf (AST/SGOT) (test code = Aspartate Amino Transf (AST/SGOT)) 16 5-34 [facility] SouthAlanine Aminotransferase (ALT/SGPT) 2019-06-14 07:09:00* Test Item Value Reference Range Interpretation Comments Alanine Aminotransferase (ALT/SGPT) (test code = 1742-6) 8 0-55 [facility] SouthTotal Hjpzqbt0922-16-46 07:09:00* Test Item Value Reference Range Interpretation Comments Total Protein (test code = 2885-2) 5.4 6.5-8.1 L [facility] SouthAlbumin2019-08-19 07:09:00* Test Item Value Reference Range Interpretation Comments Albumin (test code = 1751-7) 2.8 3.5-5.0 L [facility] SouthGlobulin2019-08-19 07:09:00* Test Item Value Reference Range Interpretation Comments Globulin (test code = 26793-7) 2.6 2.3-3.5 [facility] SouthAlbumin/Globulin Tdsti4344-09-59 07:09:00 * Test Item Value Reference Range Interpretation Comments Albumin/Globulin Ratio (test code = 1759-0) 1.1 0.8-2.0 [facility] SouthAlkaline Ocvdnilwoxi0196-43-72 07:09:00* Test Item Value Reference Range Interpretation Comments Alkaline Phosphatase (test code = 6768-6) 73 40-150 [facility] Ylxklikwx4390-80-96 07:36:00* Test Item Value Reference Range Interpretation Comments Free Thyroxine (test code = 3024-7) 0.86 0.8-1.8 [facility] SouthThyroid Stimulating Hormone (TSH) 2019-06-13 07:36:00* Test Item Value Reference Range Interpretation Comments Thyroid Stimulating Hormone (TSH) (test code = 78060-6) 3.117 0.350-4.940 [facility] Sxyvakznq7919-78-59 07:36:00* Test Item Value Reference Range Interpretation Comments Free Thyroxine (test code = 3024-7) 0.86 0.8-1.8 [facility] SouthThyroid Stimulating Hormone (TSH) 2019-06-13 07:36:00* Test Item Value Reference Range Interpretation Comments Thyroid Stimulating Hormone (TSH) (test code = 83205-8) 3.117 0.350-4.940 [facility] Gnriyagjz1611-48-93 07:36:00* Test Item Value Reference Range Interpretation Comments Free Thyroxine (test code = 3024-7) 0.86 0.8-1.8 [facility] SouthThyroid Stimulating Hormone (TSH) 2019-06-13 07:36:00* Test Item Value Reference Range Interpretation Comments Thyroid Stimulating Hormone (TSH) (test code = 49789-2) 3.117 0.350-4.940 [facility] Mlpwefvso9543-41-95 07:36:00* Test Item Value Reference Range Interpretation Comments Free Thyroxine (test code = 3024-7) 0.86 0.8-1.8 [facility] SouthThyroid Stimulating Hormone (TSH) 2019-06-13 07:36:00* Test Item Value Reference Range Interpretation Comments Thyroid Stimulating Hormone (TSH) (test code = 92678-8) 3.117 0.350-4.940 [facility] SouthHemoglobin A1c Nhirluv4116-69-31 07:18:00 * Test Item Value Reference Range Interpretation Comments Hemoglobin A1c Percent (test code = Hemoglobin A1c Percent) 5.7 4.0-7.0 [facility] SouthHemoglobin A1c Jmkhcbt9586-92-56 07:18:00 * Test Item Value Reference Range Interpretation Comments Hemoglobin A1c Percent (test code = Hemoglobin A1c Percent) 5.7 4.0-7.0 [facility] SouthHemoglobin A1c Hhjmpig7661-70-03 07:18:00 * Test Item Value Reference Range Interpretation Comments Hemoglobin A1c Percent (test code = Hemoglobin A1c Percent) 5.7 4.0-7.0 [facility] SouthHemoglobin A1c Gyxjkxc0271-44-94 07:18:00 * Test Item Value Reference Range Interpretation Comments Hemoglobin A1c Percent (test code = Hemoglobin A1c Percent) 5.7 4.0-7.0 [facility] SouthCreatine Hqxgbz2805-39-51 10:22:00* Test Item Value Reference Range Interpretation Comments Creatine Kinase (test code = 2157-6) 111 30-200 [facility] SouthCreatine Kinase CY3759-87-76 10:22:00* Test Item Value Reference Range Interpretation Comments Creatine Kinase MB (test code = 72000-0) 4.60 0-5.0 [facility] SouthTroponin X8515-33-43 10:22:00* Test Item Value Reference Range Interpretation Comments Troponin I (test code = TIA3605) 0.015 0-0.300 [facility] SouthCHEST SINGLE (PORTABLE)2019-06-12 06:18:00 [place] [address] Patient Name: STEVE BENEDICT MR #: [id number] : 1945 Age/Sex: 73/M Req #: [id number] Adm Physician: ROSALIE SHORT MD Ordered by: RENAE SOLARES MD Report #: [id number] Location: MED/SURG3 Room/Bed: [facility] Procedure: [id number] DX/CHEST SINGLE (PORTABLE) Exam Date: 06/12/19 Exam Time: 0537 REPORT STATUS: Signed A single frontal view of the chest. HISTORY: Low-grade pressure COMPARI SON: Chest radiograph June 11, 2019 DISCUSSION: Portable techniqu e, limits sensitivity of the exam. Tubes/Lines: None Lungs and pl eura: Prominence of the pulmonary tissue markings. Mild left basilar ate lectasis. No evidence of a consolidative pneumonia or pulmonary alveolar edema . No definite pleural effusion or pneumothorax is identified. Heart and m ediastinum: The cardiac silhouette appear(s) unremarkable. The central pul monary vasculature appears mildly prominent. Bones and soft tissues: Ri ght convex curvature of the thoracic spine. Late subacute to chronic left-side d rib fractures appear healed. IMPRESSION: Mild central pulmonary vas cular congestion and interstitial edema. Signed by: Dr. John cooper D.O., M.M.M. on 06/12/2019 6:21 AM Dictated By: JOHN GIRARD DO Elec tronically Signed By: JOHN GIRARD DO on 06/12/19620 Transcribed By: ERAN davidson 06/12/19620 COPY TO: RENAE SOLARES MD Urine DZZ1911-52-09 19:19:00* Test Item Value Reference Range Interpretation Comments Urine WBC (test code = 5821-4) 0-5 0-5 [facility] SouthUrine IWA9876-02-87 19:19:00* Test Item Value Reference Range Interpretation Comments Urine RBC (test code = 52619-4) 0-5 0-5 [facility] SouthUrine Iqkjpacp7637-82-21 19:19:00* Test Item Value Reference Range Interpretation Comments Urine Bacteria (test code = 49314-1) FEW NONE [facility] SouthUrine Epithelial Elylv1335-70-71 19:19:00 * Test Item Value Reference Range Interpretation Comments Urine Epithelial Cells (test code = 20780-4) FEW NONE [facility] SouthUrine Knxfa5891-07-93 19:15:00* Test Item Value Reference Range Interpretation Comments Urine Color (test code = 5778-6) YELLOW YELLOW [facility] SouthUrine Jmrieom5469-14-54 19:15:00* Test Item Value Reference Range Interpretation Comments Urine Clarity (test code = 24465-0) SL CLOUDY CLEAR H [facility] SouthUrine Specific Weynhou2310-99-28 19:15:00 * Test Item Value Reference Range Interpretation Comments Urine Specific [place] (test code = 5811-5) <=1.005 1.010-1.02 5 [facility] SouthUrine wB7666-31-29 19:15:00* Test Item Value Reference Range Interpretation Comments Urine pH (test code = 06254-4) 6 5-7 [facility] SouthU[facility] Leukocyte Jwwwhnht5967-94-32 19:15:00* Test Item Value Reference Range Interpretation Comments Urine Leukocyte Esterase (test code = 24619-6) NEGATIVE NEGATIV E [facility] SouthUrine Qgdbklr4699-65-99 19:15:00* Test Item Value Reference Range Interpretation Comments Urine Nitrite (test code = 86489-2) NEGATIVE NEGATIVE [facility] SouthUrine Jurjltt2470-69-19 19:15:00* Test Item Value Reference Range Interpretation Comments Urine Protein (test code = 90844-9) NEGATIVE NEGATIVE [facility] SouthUrine Glucose (UA)2019-06-11 19:15:00* Test Item Value Reference Range Interpretation Comments Urine Glucose (UA) (test code = 22260-7) NEGATIVE NEGATIVE [facility] SouthUrine Otdnfdn4739-25-30 19:15:00* Test Item Value Reference Range Interpretation Comments Urine Ketones (test code = 09927-7) NEGATIVE NEGATIVE [facility] SouthU[facility] Gdjgxmjbuzig2360-64-85 19:15:00* Test Item Value Reference Range Interpretation Comments Urine Urobilinogen (test code = 06893-2) 0.2 0.2-1 [facility] SouthUrine Kjenueuzo0277-17-43 19:15:00* Test Item Value Reference Range Interpretation Comments Urine Bilirubin (test code = 1977-8) NEGATIVE NEGATIVE [facility] SouthU[facility] Yuvyr9460-00-01 19:15:00* Test Item Value Reference Range Interpretation Comments Urine Blood (test code = 66888-0) NEGATIVE NEGATIVE [facility] SouthActivated Partial Thromboplast Time 2019-06-11 16:11:00* Test Item Value Reference Range Interpretation Comments Activated Partial Thromboplast Time (test code = 57217-6) 49.1 23.8-35.5 H [facility] SouthProthrombin Ebbd5075-18-63 16:10:00* Test Item Value Reference Range Interpretation Comments Prothrombin Time (test code = 5902-2) 19.1 11.9-14.5 H [facility] SouthProthromb Time International Ratio 2019-06-11 16:10:00* Test Item Value Reference Range Interpretation Comments Prothromb Time International Ratio (test code = 6301-6) 1.54 Oral Anticoagulant Therapy INR Values:1. Low Intensity Therapy 1.5 - 2.02 . Moderate Intensity Therapy 2.0 - 3.03. High Intensity Therapy(1) 2.5 - 3. 54. High Intensity Therapy(2) 3.0 - 4.05. Panic Value INR > 5.0 [facility] SouthCHEST SINGLE (PORTABLE)2019-06-11 15:51:00 [place] [address] Patient Name: STEVE BENEDICT MR #: [id number] : 1945 Age/Sex: 73/M Req #: [id number] Adm Physician: Ordered by: JAIR RESENDEZ [employer] DIRECTOR Report #: [id number] Location: ER Room/Bed: Procedure: [id number] DX/CHEST SINGLE (PORTABLE) Exam Date: 06/11/19 Exam Time: 1533 REPORT STATUS: Signed Chest, 1 view, 06/11/2019. History: Hypotension, weakness. Com parison: 05/26/2019. Findings: The cardiomediastinal silhouette and pulmonar y vasculature are within normal limits for a portable exam. There is no focal consolidation or pleural effusion. Linear opacities are again seen in the left lung base. There are no acute osseous or soft tissue abnormalities. Imp ression: Left lower lobe atelectasis. Signed by: Jama Bertrand on 019 3:52 PM Dictated By: JAMA BERTRAND MD 155 Transcribed By: ERAN on 06/11/19 1552 CO PY TO: JAIR RESENDEZ [employer] DIRECTOR Bedside Drpuahf5622-14-53 12:32:00* Test Item Value Reference Range Interpretation Comments Bedside Glucose (test code = 07660-7) 89 70-120 Meter ID: [id number] [facility]odium [facility] 2019-05-28 05:58:00* Test Item Value Reference Range Interpretation Comments Sodium Level (test code = 2951-2) 141 136-145 [facility] SouthPotassium Nzapx2133-19-26 05:58:00* Test Item Value Reference Range Interpretation Comments Potassium Level (test code = 2823-3) 3.8 3.5-5.1 [facility] SouthChloride Hswip8655-16-87 05:58:00* Test Item Value Reference Range Interpretation Comments Chloride Level (test code = 2075-0) 88 98-107 L [facility] SouthCarbon Dioxide Auaap0068-13-65 05:58:00* Test Item Value Reference Range Interpretation Comments Carbon Dioxide Level (test code = 2028-9) 43 22-29 HH Results repeated and called to SAVANA KAPADIA RN at 0556 on 05/28/19 by Shruthi Rivera. Read back and verified.[facility] SouthAnion Btc6628-87-58 05:58:00* Test Item Value Reference Range Interpretation Comments Anion Gap (test code = 95627-9) 13.8 8-16 [facility] SouthBlood Urea Achuntnx2701-88-85 05:58:00* Test Item Value Reference Range Interpretation Comments Blood Urea Nitrogen (test code = 3094-0) 43 7-26 H [facility] SouthCreatinine2019-08-02 05:58:00* Test Item Value Reference Range Interpretation Comments Creatinine (test code = 2160-0) 1.68 0.72-1.25 H [facility]BUN/Creatinine Qmvhy8376-70-68 05:58:00* Test Item Value Reference Range Interpretation Comments BUN/Creatinine Ratio (test code = 3097-3) 26 6-25 H [facility] SouthEstimat Glomerular Filtration Rate 2019-05-28 05:58:00* Test Item Value Reference Range Interpretation Comments Estimat Glomerular Filtration Rate (test code = 291180805) 40 >60 L Ranges were taken from the National Kidney Disease Education Program and the [facility] [employer] literature.Reference ranges:60 or greater: Khcoza29-02 ( for 3 consecutive months): Chronic kidney disease 15 or less: Kidney failure[facility]ST[facility] – SouthGlucose Udatg0003-83-90 05:58:00* Test Item Value Reference Range Interpretation Comments Glucose Level (test code = FCC5252) 98 74-118 [facility] SouthCalcium Rjksk8257-36-70 05:58:00* Test Item Value Reference Range Interpretation Comments Calcium Level (test code = 18850-2) 9.5 8.4-10.2 [facility] SouthWhite Blood Gsyuq2703-69-33 05:07:00* Test Item Value Reference Range Interpretation Comments White Blood Count (test code = 6690-2) 4.69 4.8-10.8 L [facility] SouthRed Blood Yacet5955-91-84 05:07:00* Test Item Value Reference Range Interpretation Comments Red Blood Count (test code = 789-8) 3.65 4.3-5.7 L [facility] SouthHemoglobin2019-08-02 05:07:00* Test Item Value Reference Range Interpretation Comments Hemoglobin (test code = 40064-6) 9.9 14.0-18.0 L [facility] SouthHematocrit2019-08-02 05:07:00* Test Item Value Reference Range Interpretation Comments Hematocrit (test code = 4544-3) 32.7 38.2-49.6 L [facility] SouthMean Corpuscular Shscje2676-87-46 05:07:00* Test Item Value Reference Range Interpretation Comments Mean Corpuscular Volume (test code = 787-2) 89.6 81-99 [facility] SouthMean Corpuscular Xfldrqrfsz0681-86-39 05:07:00* Test Item Value Reference Range Interpretation Comments Mean Corpuscular Hemoglobin (test code = 785-6) 27.1 28-32 L [facility] SouthMean Corpuscular Hemoglobin Concent 2019-05-28 05:07:00* Test Item Value Reference Range Interpretation Comments Mean Corpuscular Hemoglobin Concent (test code = 786-4) 30.3 31-35 L [facility] SouthRed Cell Distribution Cnugy4060-92-91 05:07:00* Test Item Value Reference Range Interpretation Comments Red Cell Distribution Width (test code = 42639-3) 15.2 11.7 -14.4 H [facility] SouthPlatelet Bxrmp3726-06-63 05:07:00* Test Item Value Reference Range Interpretation Comments Platelet Count (test code = 777-3) 194 140-360 [facility] SouthNeutrophils (%) (Auto)2019-05-28 05:07:00 * Test Item Value Reference Range Interpretation Comments Neutrophils (%) (Auto) (test code = 08283-4) 54.5 38.7-80.0 [facility] SouthLymphocytes (%) (Auto)2019-05-28 05:07:00 * Test Item Value Reference Range Interpretation Comments Lymphocytes (%) (Auto) (test code = 736-9) 23.2 18.0-39.1 [facility] SouthMonocytes (%) (Auto)2019-05-28 05:07:00* Test Item Value Reference Range Interpretation Comments Monocytes (%) (Auto) (test code = 5905-5) 15.1 4.4-11.3 H [facility] SouthEosinophils (%) (Auto)2019-05-28 05:07:00 * Test Item Value Reference Range Interpretation Comments Eosinophils (%) (Auto) (test code = 713-8) 6.4 0.0-6.0 H [facility] SouthBasophils (%) (Auto)2019-05-28 05:07:00* Test Item Value Reference Range Interpretation Comments Basophils (%) (Auto) (test code = 706-2) 0.6 0.0-1.0 [facility] SouthIM GRANULOCYTES %2019-05-28 05:07:00* Test Item Value Reference Range Interpretation Comments IM GRANULOCYTES % (test code = IM GRANULOCYTES %) 0.2 0.0- 1.0 [facility] SouthNeutrophils # (Auto)2019-05-28 05:07:00* Test Item Value Reference Range Interpretation Comments Neutrophils # (Auto) (test code = 751-8) 2.6 2.1-6.9 [facility] SouthLymphocytes # (Auto)2019-05-28 05:07:00* Test Item Value Reference Range Interpretation Comments Lymphocytes # (Auto) (test code = 84370-7) 1.1 1.0-3.2 [facility] SouthMonocytes # (Auto)2019-05-28 05:07:00* Test Item Value Reference Range Interpretation Comments Monocytes # (Auto) (test code = 742-7) 0.7 0.2-0.8 [facility] SouthEosinophils # (Auto)2019-05-28 05:07:00* Test Item Value Reference Range Interpretation Comments Eosinophils # (Auto) (test code = 711-2) 0.3 0.0-0.4 [facility] SouthBasophils # (Auto)2019-05-28 05:07:00* Test Item Value Reference Range Interpretation Comments Basophils # (Auto) (test code = 704-7) 0.0 0.0-0.1 [facility] SouthAbsolute Immature Granulocyte (auto 2019-05-28 05:07:00* Test Item Value Reference Range Interpretation Comments Absolute Immature Granulocyte (auto (bharat t code = Absolute Immature Granulocyte (auto) 0.01 0-0.1 [facility] SouthBlood Thntihe4295-03-13 18:36:00* Test Item Value Reference Range Interpretation Comments Blood Culture (test code = 89958953) NO GROWTH AFTER 24 HOURS [facility] SouthCT BRAIN KT5483-09-48 14:11:00 [place] [address] Patient Name: STEVE BENEDICT MR #: [id number] : 1945 Age/Sex: 73/M Req #: [id number] Adm Physician: ROSALIE SHORT MD Ordered by: aSmara Das [employer] Report #: [id number] Location: MED/SURG2 Room/Bed: [facility] Procedure: C T/CT BRAIN WO Exam Date: 05/27/19 Exam Time: 1341 REPORT STATUS: Signed CT BRAIN WO HISTORY: Syncope COMPARISON: MRI of the brain 05/27/2019 Technique: Noncontrast axial scans were obtained from skull base to the vertex. Coronal and sagittal reconstructions obtained from the axial data. One or more of the following dose reduction techniques were used: Automated exposure control, adjustment of the mA and/or kV according to patient size, and/or utilization of iterative reconstruction technique. DISCUSSION: Scalp/Skull: Unre markable. Brain sulci: Mildly prominent. Ventricles: Compensatory dilatation . Extra-axial spaces: No masses or fluid collections. Carotid siphon calcifi cations are present. Parenchyma: Mild bilateral deep white matter hypode nsity is likely chronic microvascular ischemic change. Otherwise, no masses , hemorrhage, or large vascular territory acute infarct. Dural sinuses: No abnormal densities. Sellar/Suprasellar region: Intact. Skull base: Intact. Incidental findings: Both ocular lenses are thinned. Small left mastoid effu robyn. Mild mucosal thickening in the left posterior ethmoid air cells. IMPR ESSION: 1. No acute intracranial abnormalities. 2. 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 Mild generalized cerebral volume loss. Signed by: Dr. Jagjit Turner M.D. on 05/27/2019 2:12 PM Dictated By: JAGJIT TURNER MD 1412 Transcribed By: ERAN on 05/27/19 1412 COPY TO: SAMARA DAS N P MRI BRAIN MT7048-26-18 14:08:00 [place] [address] Patient Name: STEVE BENEDICT MR #: [id number] : 1945 Age/Sex: 73/M Req #: [id number] Adm Physician: ROSALIE SHORT MD Ordered by: Samara Das [employer] DIRECT[employer] Report #: [id number] Location: MED/SURG2 Room/Bed: [facility] Procedure: [id number] M RI/MRI BRAIN WO Exam Date: Exam Time: REPORT STATUS: Signed MRI BRAIN WO HIST ORY: Syncope COMPARISON: None. TECHNIQUE: Sagittal T2, axial T2, a xial T1, axial T2/FLAIR, axial gradient echo (or susceptibility weighted), cor onal T2/FLAIR, and axial diffusion weighted MR images of the brain were obtain ed without contrast. Motion, noise, and alias artifacts obscure some details. DISCUSSION: Scalp/bone marrow: Unremarkable. Brain sulci: Prominent. Ventricles: Compensatory dilatation. Extra-axial spaces: No masses or fluid collections. Parenchyma: Scattered T2/FLAIR hyperintense foci throughout the supratentorial white matter are likely chronic microvascular ischemic ch anges. Otherwise, no mass, hemorrhage, or acute vascular insults. Vessels : Normal flow voids in major arteries and veins. Sellar/Suprasellar region: N o abnormalities. Craniocervical junction: ACDF changes are partially visualize d. Incidental findings: Both ocular lenses are thinned. T2 hyperintense left mastoid effusion is present. IMPRESSION: 1. No acute intracranial a bnormalities. 2. Mild supratentorial chronic microvascular ischemic change. 3. Mild generalized cerebral volume loss. Signed by: Dr. Jagjit Turner M.D. on 05/27/2019 2:10 PM Dictated By: JAGJIT TURNER MD 1410 Transcribed By: ERAN on 11/14 1410 COPY TO: SAMARA DAS NP B-Type Natriuretic Peptide 2019-05-27 08:56:00* Test Item Value Reference Range Interpretation Comments B-Type Natriuretic Peptide (test code = 08034-9) 328.4 0-100 H [facility] SouthMagnesium Hkqgv1648-98-04 08:44:00* Test Item Value Reference Range Interpretation Comments Magnesium Level (test code = 93782-9) 2.2 1.3-2.1 H [facility] SouthLactic Acid Vsrxg9045-10-35 21:03:00* Test Item Value Reference Range Interpretation Comments Lactic Acid Level (test code = Lactic Acid Level) 14.1 4.5- 19.8 [facility] SouthLactic Acid Vlmvi1954-41-92 21:03:00* Test Item Value Reference Range Interpretation Comments Lactic Acid Level (test code = Lactic Acid Level) 14.1 4.5- 19.8 [facility] SouthUrine FDG6591-19-21 18:55:00* Test Item Value Reference Range Interpretation Comments Urine WBC (test code = 5821-4) 0-5 0-5 [facility] SouthUrine ALI1719-98-75 18:55:00* Test Item Value Reference Range Interpretation Comments Urine RBC (test code = 28402-2) NONE 0-5 [facility] SouthUrine Aaofldlg1407-39-72 18:55:00* Test Item Value Reference Range Interpretation Comments Urine Bacteria (test code = 82940-1) NONE NONE [facility] SouthUrine Epithelial Lonbw9060-12-32 18:55:00 * Test Item Value Reference Range Interpretation Comments Urine Epithelial Cells (test code = 21014-8) RARE NONE [facility] SouthUrine Renal Epithelial Cvwqk4840-80-09 18:55:00* Test Item Value Reference Range Interpretation Comments Urine Renal Epithelial Cells (test code = 55067-7) RARE NON E H [facility] SouthUrine Renal Epithelial Flrwj4797-42-13 18:55:00* Test Item Value Reference Range Interpretation Comments Urine Renal Epithelial Cells (test code = 30933-8) RARE NON E H [facility] SouthUrine Renal Epithelial Iyykp7239-59-10 18:55:00* Test Item Value Reference Range Interpretation Comments Urine Renal Epithelial Cells (test code = 69620-8) RARE NON E H [facility] SouthUrine Renal Epithelial Irmeo9220-93-18 18:55:00* Test Item Value Reference Range Interpretation Comments Urine Renal Epithelial Cells (test code = 83714-0) RARE NON E H [facility] SouthUrine Renal Epithelial Fhkzm3305-43-81 18:55:00* Test Item Value Reference Range Interpretation Comments Urine Renal Epithelial Cells (test code = 95631-1) RARE NON E H [facility] SouthUrine Wvmyi4818-84-58 18:43:00* Test Item Value Reference Range Interpretation Comments Urine Color (test code = 5778-6) YELLOW YELLOW [facility] SouthUrine Fxkekco5334-72-08 18:43:00* Test Item Value Reference Range Interpretation Comments Urine Clarity (test code = 93822-6) CLEAR CLEAR [facility] SouthUrine Specific Idsdtyb0575-82-45 18:43:00 * Test Item Value Reference Range Interpretation Comments Urine Specific [place] (test code = 5811-5) 1.010 1.010-1.02 5 [facility] SouthUrine xI8095-34-31 18:43:00* Test Item Value Reference Range Interpretation Comments Urine pH (test code = 93807-3) 7 5-7 [facility] South[facility] Leukocyte Xtbduqja5423-11-87 18:43:00* Test Item Value Reference Range Interpretation Comments Urine Leukocyte Esterase (test code = 66332-9) NEGATIVE NEGATIV E [facility] SouthUrine Lidqedz8402-49-21 18:43:00* Test Item Value Reference Range Interpretation Comments Urine Nitrite (test code = 95430-2) NEGATIVE NEGATIVE [facility] SouthUrine Gedthbh6646-91-70 18:43:00* Test Item Value Reference Range Interpretation Comments Urine Protein (test code = 24856-4) NEGATIVE NEGATIVE [facility] South[facility]rine Glucose (UA)2019-05-26 18:43:00* Test Item Value Reference Range Interpretation Comments Urine Glucose (UA) (test code = 84654-8) NEGATIVE NEGATIVE [facility] SouthUrine Gqozqlt0037-52-84 18:43:00* Test Item Value Reference Range Interpretation Comments Urine Ketones (test code = 82907-9) NEGATIVE NEGATIVE [facility] SouthUrine Aawgomzckpnd0074-29-28 18:43:00* Test Item Value Reference Range Interpretation Comments Urine Urobilinogen (test code = 31319-5) 0.2 0.2-1 [facility] South[facility]rine Iehbdwvgr9356-41-59 18:43:00* Test Item Value Reference Range Interpretation Comments Urine Bilirubin (test code = 1977-8) NEGATIVE NEGATIVE [facility] South[facility]rine Aljya2351-43-72 18:43:00* Test Item Value Reference Range Interpretation Comments Urine Blood (test code = 16303-7) NEGATIVE NEGATIVE [facility] SouthCHEST 2 UCWJV1352-92-41 16:20:00 [facility] [address] [place] [address] Patient Name: STEVE BENEDICT MR #: [id number] : 1945 Age/Sex: 73/M Req #: [id number] Adm Physician: Ordered by: TROY CODY MD Report #: [id number] Location: ER Room/Bed: Procedure: [id number] D X/CHEST 2 VIEWS Exam Date: 05/26/19 Exam Time: 1600 REPORT STATUS: Signed EXAMINATIO N: CHEST 2 VIEWS INDICATION: Sepsis COMPARISON: Chest radiograph of earlier the same day. FINDINGS: LINES/TUBES:None LUNGS:Th e lungs are moderately inflated. No focal consolidation. Subsegmental atelecta sis at the left lung base. PLEURA:No pleural effusion or pneumothorax. MEDIASTINUM:The cardiomediastinal silhouette appears unchanged in size and sh ape. BONES/SOFT TISSUES:No acute osseous injury. Old healed left rib fractu res. ABDOMEN:No free air under the diaphragm. IMPRESSION: No sig nificant interval change. Signed by: Ernestine Houser MD on 05/26/2019 4:21 PM Dictated By: ERNESTINE HOUSER MD COPY TO: Elyssa CODY MD Creatine Kinase SS2559-75-68 15:20:00* Test Item Value Reference Range Interpretation Comments Creatine Kinase MB (test code = 35065-5) 2.80 0-5.0 [facility] SouthTroponin X7896-33-81 15:20:00* Test Item Value Reference Range Interpretation Comments Troponin I (test code = XHO7118) 0.013 0-0.300 [facility] Bsucaguuf0002-67-55 15:15:00* Test Item Value Reference Range Interpretation Comments Total Bilirubin (test code = 1975-2) 0.4 0.2-1.2 [facility] SouthAspartate Amino Transf (AST/SGOT) 2019-05-26 15:15:00* Test Item Value Reference Range Interpretation Comments Aspartate Amino Transf (AST/SGOT) (test code = Aspartate Amino Transf (AST/SGOT)) 13 5-34 [facility] SouthAlanine Aminotransferase (ALT/SGPT) 2019-05-26 15:15:00* Test Item Value Reference Range Interpretation Comments Alanine Aminotransferase (ALT/SGPT) (test code = 1742-6) 10 0-55 [facility] SouthTotal Xxiinsb5009-79-41 15:15:00* Test Item Value Reference Range Interpretation Comments Total Protein (test code = 2885-2) 6.5 6.5-8.1 [facility] SouthAlbumin2019-07-31 15:15:00* Test Item Value Reference Range Interpretation Comments Albumin (test code = 1751-7) 3.3 3.5-5.0 L [facility] SouthGlobulin2019-07-31 15:15:00* Test Item Value Reference Range Interpretation Comments Globulin (test code = 89772-1) 3.2 2.3-3.5 [facility] SouthAlbumin/Globulin Ioqkg6023-71-67 15:15:00 * Test Item Value Reference Range Interpretation Comments Albumin/Globulin Ratio (test code = 1759-0) 1.0 0.8-2.0 [facility] SouthAlkaline Ztotfeztbus6594-72-55 15:15:00* Test Item Value Reference Range Interpretation Comments Alkaline Phosphatase (test code = 6768-6) 109 40-150 [facility] SouthCreatine Tcmzpl2807-78-24 15:15:00* Test Item Value Reference Range Interpretation Comments Creatine Kinase (test code = 2157-6) 89 30-200 [facility] SouthLipase2019-07-31 15:15:00* Test Item Value Reference Range Interpretation Comments Lipase (test code = 3040-3) [facility] SouthLipase2019-07-31 15:15:00* Test Item Value Reference Range Interpretation Comments Lipase (test code = 3040-3) [facility] SouthLipase2019-07-31 15:15:00* Test Item Value Reference Range Interpretation Comments Lipase (test code = 3040-3) [facility] SouthLipase2019-07-31 15:15:00* Test Item Value Reference Range Interpretation Comments Lipase (test code = 3040-3) [facility] SouthLipase2019-07-31 15:15:00* Test Item Value Reference Range Interpretation Comments Lipase (test code = 3040-3) [facility] SouthCHEST SINGLE (PORTABLE)2019-05-26 15:08:00 [facility] [address] [place] [address] Patient Name: STEVE BENEDICT MR #: [id number] : 1945 Age/Sex: 73/M Req #: [id number] Adm Physician: Ordered by: TROY CODY MD Report #: [id number] Location: ER Room/Bed: Procedure: [id number] D X/CHEST SINGLE (PORTABLE) Exam Date: 05/26/19 Exam T cheri: 1453 REPORT STATUS: Signed EXAMINATION: CHEST SINGLE (PORTABLE) INDICATION: Hypotension COMP ARISON: Chest radiograph of 04/23/2019 FINDINGS: LINES/TUBES:EKG l katy overlie the chest. LUNGS:The lungs are well-inflated. Mild patchy opac ity at the left lung base. Scattered bilateral calcified granulomas. PLEU RA:No pleural effusion or pneumothorax. MEDIASTINUM:The cardiomediastinal s ilhouette appears unchanged in size and shape. BONES/SOFT TISSUES:No acut e osseous injury. Multiple healed posterior and lateral left rib fractures. ABDOMEN:No free air under the diaphragm. IMPRESSION: Patchy opacity at the left lung base, likely subsegmental atelectasis. Signed by: Ernestine Houser MD on 05/26/2019 3:17 PM Dictated By: ERNESTINE HOUSER MD 1517 Transcribed By: ERAN on 05/26/19 1 517 COPY TO: TROY CODY MD Activated Partial Thromboplast Pxyn8481-66-28 15:05:00* Test Item Value Reference Range Interpretation Comments Activated Partial Thromboplast Time (test code = 38711-1) 56.4 23.8-35.5 H [facility] SouthProthrombin Ribn3360-03-59 15:04:00* Test Item Value Reference Range Interpretation Comments Prothrombin Time (test code = 5902-2) 18.3 11.9-14.5 H [facility] SouthProthromb Time International Ratio 2019-05-26 15:04:00* Test Item Value Reference Range Interpretation Comments Prothromb Time International Ratio (test code = 6301-6) 1.46 Oral Anticoagulant Therapy INR Values:1. Low Intensity Therapy 1.5 - 2.02 . Moderate Intensity Therapy 2.0 - 3.03. High Intensity Therapy(1) 2.5 - 3. 54. High Intensity Therapy(2) 3.0 - 4.05. Panic Value INR > 5.0 [facility] XVUUA0399-06-50 17:35:00Trace *NA*(05/18/19 12:35 PM)[facility] KVKET8979-61-36 17:35:00Negative *NA*(05/18/19 12:35 PM)[facility] TUHOP0892-09-49 17:35:000.2 [facility] BDOZA5644-75-46 17:35:00Positive *ABN*(05/18/19 12:35 PM)[facility] XUHHK5112-65-43 17:35:00Small *ABN*(05/18/19 12:35 PM)[facility] FWMDW5217-22-93 17:35:00Yellow *NA*(05/18/19 12:35 PM)[facility] EHVNA6352-95-38 17:35:00Clear *NA*(05/18/19 12:35 PM)[facility] TEPTG4618-66-27 17:35:00* Test Item Value Reference Range Interpretation Comments POC UA SG (test code = POC UA SG) 1.015 1 [facility] EUXZW7463-67-33 17:35:00* Test Item Value Reference Range Interpretation Comments POC UA pH (test code = POC UA pH) 6.5 1 5.0-8.0 [facility] Vivek- CT HEAD/BRAIN W/O BOMT9962-90-38 05:58:00 Name: STEVE BENEDICT [facility] : 1945 Age/S: 73 / M [address] [facility] Unit #: [id number] Loc: [place] [address] Phys: Bernard Coon MD Acct: [id number] Dis Date: Status: REG ER PHONE #: [phone] Exam Date: 05/05/2019439 FAX #: [phone] Reason: Pain s/p Fall EXAMS: CPT CODE: [id number] CT HEAD/BRAIN W/O CONT 63598 EXAM: - CT HEAD/BRAIN W/O CONT Location code:C3 HISTORY: 73 years -old Male with Pain s/p Fall TECHNIQUE: Axial CT images from the skull base to the vertex without intravenous contrast. Coronal and sagittal reformatted images were created from the data set. One or more of the following dose reduction techniques were used: Automated exposure control, adjustment of the mA and/or kV according to patient size, and/or utilization of iterative reconstruction technique. COMPARISON: None FINDINGS: Intracranial: Motion artifact limits evaluation. No abnormal brain parenchymal density. No evidence of acute infarction, intracranial hemorrhage, mass or mass effect, or abnormal extra-axial fluid collection. The ventricular system and sulci are prominent compatible cerebral volume loss.. There is mild diminished attenuation involving the periventricular and subcortical white matter compatible with mild microvascular chronic ischemic changes. The density in the larger dural sinuses is grossly normal. Bones: There is no evidence of acute displaced calvarial fracture. Sinuses: Mild mu cosal thickening is noted in the left ethmoid air cells.There is fluid dem onstrated in left mastoid air cells. Orbits/Soft Tissues: The vis ualized orbits show no significant abnormalities. The visualized soft tis sues are unremarkable. IMPRESSION: 1. Age-rel ated changes. No intracranial hemorrhage or other acute intracranial ab normality. PAGE 1 Signed Report (CONTINUED) Name: STEVE BENEDICT [facility] : 1945 Age/S: 73 / M [address] [facility] Unit #: [id number] Loc: [place] [address] Phy s: Bernard Coon MD Acct: [id number] Dis Date: Status: REG ER PHONE #: [phone] Exam Date: 05/05/2019 0440 FAX #: [phone] Reason: Pain s/p Fall EXAMS: CPT CODE: [id number] CT HEAD/BRAIN W/O CONT 97041 <Continued> at 0558 Reported and signed by: Garry Hughes MD CC: Bernard Coon MD; Teofilo Summers MD Tech nologist:CEASAR CLARK RT(R),RDMS,CT CTDI: DLP: Trnscb Date/Ti me: 05/05/2019 (0558) t.SDR.RXC2 Orig Print D/T: S: 2018 (0601) PAGE 2 Signed Report - CT CHEST W/O SERLDKVG6164-51-19 05:52:00 Name: STEVE BENEDICT [facility] : 1945 Age/S: 73 / M [address] [facility] Unit #: [id number] Loc: [place] [address] Phys: Bernard Coon MD Acct: [id number] Dis Date: Status: REG ER PHONE #: [phone] Exam Date: 05/05/2019439 FAX #: [phone] Reason: Pain s/p Fall EXAMS: CPT CODE: [id number] CT CHEST W/O CONTRAST 41533 HISTORY: Pain and fall COMPARISON:None TECHNIQUE: Axial tomograms through the chest, abdomen and pelvis were obtained without intravenous contrast. One or more of the following dose reduction techniques were used: Automated exposure control, adjustment of the mA and/or kV according to patient size, and/or utilization of iterative reconstruction technique. FINDINGS: CT chest: Aortic and coronary calcifications are noted. Evaluation of mediastinal structures is limited without intravenous contrast. No mediastinal mass or signif icant adenopathy. Emphysema is demonstrated adjacent upper lobes. Mild b asilar atelectasis as well as linear opacity suggesting atelectasis in the inferior lingula. Degenerative changes of the spine are present. CT abdomen and pelvis: Liver: The liver is relatively homog eneous in appearance with no discrete liver lesion demonstrated. Spleen: No significant splenomegaly. No focal splenic lesion. Pancreas: No focal mass or significant peripancreatic stranding or fluid collection. Adrenals: Normal in appearance with no mass identifie d. Kidneys Bilateral renal cyst are demonstrated. No vascular The gallbladder has a normal CT appearance. No abdominal fluid collection or adenopathy is demonstrated. Within the pelvis no fl uid collection or pelvic adenopathy. No acute inflammatory process. No evidence of bowel obstruction. No free air or abscess. PAGE 1 Signed Report (CONTINUED) Name: STEVE SIN [facility] : 1945 Age/S: 73 / M [address] [facility] Unit #: [id number] Lo c: [place] [address] Phys: Bernard Coon MD Acct: [id number] Dis Date: Status: REG ER PHONE #: [phone] Exam Date: 05/05/2019439 FAX #: [phone] Reason: Pain s/p Fall EXAMS: CPT CODE: [id number] CT CHEST W/O CONTRAST 50833 <Continued> Degenerative changes of the spine and bilateral hips are present. No acute fracture identified. IMPRESSION: 1. No acute traumatic injury demonstrated in the chest, abdomen, or pelvis however evaluation of the solid organs as well as bowel and pelvic structures and mediastinal structures is limited without intravenous contrast. 2. Aortic and coronary calcifications. at 0552 Reported and signed by: Garry Hughes MD CC: Bernard Coon MD; Teofilo Summers MD Technologist:CEASAR CLARK(R),RDMS,CT CTDI: DLP: Trnscb Date/Time: 05/05/2019 (05) [email or web address] Orig Print D/T: S: 05/05/2019 (0555) PAGE 2 Signed Report - CT ABD PELVIS W/O [id number] 05:52:00 Name: STEVE BENEDICT [facility] : 1945 Age/S: 73 / M [address] [facility] Unit #: [id number] Loc: [place] [address] Phys: Hannon MD Acct: [id number] Di s Date: Status: REG ER PHONE #: Exam Date: 05/05/2019439 FAX #: Reason: Pain s/p Fall EXAMS: CPT CODE: [id number] CT ABD PELVIS W/O CONT 31445 HISTORY: Pain and fall COMPARISON:None TECHNIQUE: Axial tomograms thr ough the chest, abdomen and pelvis were obtained without intravenous contr ast. One or more of the following dose reduction techniques were u sed: Automated exposure control, adjustment of the mA and/or kV according to patient size, and/or utilization of iterative reconstruction tech nique. FINDINGS: CT chest: Aortic and coronary calcifications are noted. Evaluation of mediastinal structur es is limited without intravenous contrast. No mediastinal mass or signif icant adenopathy. Emphysema is demonstrated adjacent upper lobes. Mild b asilar atelectasis as well as linear opacity suggesting atelectasis in the inferior lingula. Degenerative changes of the spine are present. CT abdomen and pelvis: Liver: The liver is relatively homog eneous in appearance with no discrete liver lesion demonstrated. Spleen: No significant splenomegaly. No focal splenic lesion. Pancreas: No focal mass or significant peripancreatic stranding or fluid collection. Adrenals: Normal in appearance with no mass identifie d. Kidneys Bilateral renal cyst are demonstrated. No vascular The gallbladder has a normal CT appearance. No abdominal fluid collection or adenopathy is demonstrated. Within the pelvis no fl uid collection or pelvic adenopathy. No acute inflammatory process. No evidence of bowel obstruction. No free air or abscess. PAGE 1 Signed Report (CONTINUED) Name: STEVE SIN [facility] : 1945 Age/S: 73 / M [address] [facility] Unit #: [id number] Lo c: [place] [address] Phys: Bernard Coon MD Acct: [id number] Dis Date: Status: REG ER PHONE #: [phone] Exam Date: 05/05/2019439 FAX #: [phone] Reason: Pain s/p Fall EXAMS: CPT CODE: [id number] CT ABD PELVIS W/O CONT 50065 <Continued> Degenerative changes of the spine and bilateral hips are present. No acute fracture identified. IMPRESSION: 1. No acute traumatic injury demonstrated in the chest, abdomen, or pelvis however evaluation of the solid organs as well as bowel and pelvic structures and mediastinal structures is limited without intravenous contrast. 2. Aortic and coronary calcifications. at 0552 Reported and signed by: Garry Hughes MD CC: Bernard Coon MD; Teofilo Summers MD Technologist:CEASAR CLARK RT(R),RDMS,CT CTDI: DLP: Trnscb Date/Time: 05/05/2019 (0552) [email or web address] Orig Print D/T: S: 05/05/2019 (8272) PAGE 2 Signed Report - CT C-SPINE W/O [id number] 05:51:00 Name: STEVE BENEDICT [facility] : 1945 Age/S: 73 / M [address] [facility] Unit #: [id number] Loc: [place] [address] Phys: Hannon MD Acct: [id number] Di s Date: Status: REG ER PHONE #: [phone] Exam Date: 05/05/2019 044 FAX #: Reason: Pain s/p Fall EXAMS: CPT CODE: [id number] CT C-SPINE W/O CONTRAST 43094 EXAM: - CT C-SPINE W/O C ONTRAST HISTORY: Fall. TECHNIQUE: Axial tomograms th rough the cervical spine were obtained without intravenous contrast. Sagit saeid and coronal reformatted images are provided. This exam was perfo rmed according to our departmental dose-optimization program, which includ es automated exposure control, adjustment of the mA and/or kV according to patient size and/or use of iterative reconstruction technique. COMPARISON: None available time of interpretation. FINDINGS: Previous fusion surgical changes with anterior plate and screws at C3, C4 and C5 levels. Vertebral heights and alignment are maintained. No acute fracture or subluxation. The prevertebral soft tissues are within normal limits. The visualized soft tissues of the neck show no significant abnormalities. Degenerative disc disease and facet arthropathy is present at multiple levels. IMPRESSION: No acute oss eous abnormality with other findings as above. Electronically Destinee d by Luis Roy MD on 05/05/2019 at 0551 Reported an d signed by: Luis Roy MD CC: Bernard Coon MD; Teofilo Summers MD Technologist:CEASAR CLARK(R),RDMS,CT CTDI: DLP: Trnscb Date/Time: 05/05/2019 (0580) [email or web address] Orig Print D/T: S: 05/05/2019 (0533) PAGE 1 Signed Report - XR ELBOW 3 + V [id number] 05:45:00 [facility] 1945 Age/S:73 /M [address] [place] [address] Unit#:[id number] Loc: [place] [address] Phys: Hannon MD Dis Date: PHONE #: [phone] Status: REG ER FAX #: [phone] Exam Date: 05/05/2019 Re ason: S/P FALL EXAMS: CPT CODE: [id number] XR ELBOW 3 + V RT 21441 HISTORY: Pain Location: C3 FINDINGS: Right elbow: 3 images of the right elbow are provided. Degenerative changes are present. No significant elbow joint effusion. No acute fracture. No other acute osseous abnormality. Left elbow: 3 images of left elbow are provided. Degenerative changes are present at the elbow. No joint effusion. No acute fracture or dislocatio n. No other acute osseous abnormality. Right wrist: 3 images of t he right wrist are provided. Degenerative changes are present at the radi ocarpal joint as well as within the carpal joints No acute fracture, dislocation, or other acute osseous abnormality is demonstrated. IMPRESSION: 1. Degenerative changes. No acute fracture or other acute osseous abnormality seen involving the bilateral elbows right wrist. Electronically Signed by Garry Hughes MD on 0 05/05/2019 at 0545 Reported and signed by: Garry Hughes MD CC: Bernard Coon MD; Teofilo Summers MD T echnologist: CEASAR CLARK RT(R),RDMS,CT Trnscrpt Keshav a: 05/05/2019 (0545) [email or web address] Orig Print D/T: S: 05/05 (0548) PAGE 1 Signed Report - XR ELBOW 3 + V [id number] 05:45:00 [facility] 1945 Age/S:73 /M [address] [facility] Unit#:[id number] Loc: [place] [address] Phys: Hannon MD Dis Date: PHONE #: [phone] Status: REG ER FAX #: [phone] Exam Date: 05/05/2019 Re ason: Pain s/p Fall EXAMS: CPT CODE: [id number] XR ELBOW 3 + V LT [address] HISTORY: Pain Location: C3 FINDINGS: Right elbow: 3 images of the right elbow are provided. Degenerative changes are present. No significant elbow joint effusion. No acute fracture. No other acute osseous abnormality. Left elbow: 3 images of left elbow are provided. Degenerative changes are present at the elbow. No joint effusion. No acute fracture or dislocatio n. No other acute osseous abnormality. Right wrist: 3 images of t he right wrist are provided. Degenerative changes are present at the radi ocarpal joint as well as within the carpal joints No acute fracture, dislocation, or other acute osseous abnormality is demonstrated. IMPRESSION: 1. Degenerative changes. No acute fracture or other acute osseous abnormality seen involving the bilateral elbows right wrist. Electronically Signed by Garry Hughes MD on 0 05/05/2019 at 0545 Reported and signed by: Garry Hughes MD CC: Bernard Coon MD; Teofilo Summers MD T echnologist: CEASAR CLARK RT(R),RDMS,CT Trnscrpt Keshav a: 05/05/2019 (0545) [email or web address] Orig Print D/T: S: 05/05 (0548) PAGE 1 Signed Report - XR WRIST 3 + V [id number] 05:45:00 Name: STEVE BENEDICT [facility] : 1945 Age/S:73 /M [address] [facility] Unit#:[id number] Loc: [place], [place] [address] Phys: Hannon MD Dis Date: PHONE #: [phone] Status: REG ER FAX #: [phone] Exam Date: 05/05/2019 Re ason: Pain s/p Fall EXAMS: CPT CODE: [id number] XR WRIST 3 + V RT 50792 HISTORY: Pain Location: C3 FINDINGS: Right elbow: 3 images of the right elbow are provided. Degenerative changes are present. No significant elbow joint effusion. No acute fracture. No other acute osseous abnormality. Left elbow: 3 images of left elbow are provided. Degenerative changes are present at the elbow. No joint effusion. No acute fracture or dislocatio n. No other acute osseous abnormality. Right wrist: 3 images of t basil right wrist are provided. Degenerative changes are present at the radi ocarpal joint as well as within the carpal joints No acute fracture, dislocation, or other acute osseous abnormality is demonstrated. IMPRESSION: 1. Degenerative changes. No acute fracture or other acute osseous abnormality seen involving the bilateral elbows right wrist. Electronically Signed by Garry Hughes MD on 0 05/05/2019 at 0574 Reported and signed by: Garry Hughes MD CC: Bernard Coon MD; Teofilo Summers MD T echnologist: CEASAR CLARK RT(R),RDMS,CT Trnscrpt Keshav a: 05/05/2019 (0545) [email or web address] Orig Print D/T: S: 05/05 (0548) PAGE 1 Signed Report - XR WRIST 3 + V [id number] 05:45:00 Name: STEVE BENEDICT [facility] : 1945 Age/S:73 /M [address] [facility] Unit#:[id number] Loc: [place] [address] Phys: Hannon MD Dis Date: PHONE #: [phone] Status: DEP ER FAX #: [phone] Exam Date: 05/05/2019 Re ason: Pain s/p Fall EXAMS: CPT CODE: [id number] XR WRIST 3 + V RT 49156 HISTORY: Pain Location: C3 FINDINGS: Right elbow: 3 images of the right elbow are provided. Degenerative changes are present. No significant elbow joint effusion. No acute fracture. No other acute osseous abnormality. Left elbow: 3 images of left elbow are provided. Degenerative changes are present at the elbow. No joint effusion. No acute fracture or dislocatio n. No other acute osseous abnormality. Right wrist: 3 images of t basil right wrist are provided. Degenerative changes are present at the radi ocarpal joint as well as within the carpal joints No acute fracture, dislocation, or other acute osseous abnormality is demonstrated. IMPRESSION: 1. Degenerative changes. No acute fracture or other acute osseous abnormality seen involving the bilateral elbows right wrist. Electronically Signed by Garry Hughes MD on 0 05/05/2019 at 0545 Reported and signed by: Garry Hughes MD CC: Bernard Coon MD; Teofilo Summers MD echnologist: CEASAR CLARK RT(R),RDMS,CT Trnscrpt Keshav a: 05/05/2019 (0556) [email or web address] Orig Print D/T: S: 05/05 (7618) PAGE 1 Signed Report BASIC METABOLIC [id number] 04:50:00* Test Item Value Reference Range Interpretation Comments SODIUM (test code = NA) 136 mmol/L 136-145 N POTASSIUM (test code = K) 2.9 mmol/L 3.5-5.1 L Re sults called to DR DANISHA Pichardo V.LAB.IN 05/05/19 0442Critical results verified and read back by Nurse? Y CHLORIDE (test code = CL) 90 mmol/L 101-109 L CARBON DIOXIDE (test code = CO2) 39.5 mmol/L 21-32 H ANION GAP (test code = GAP) 9 mmol/L 10-20 L GLUCOSE (test code = GLU) 168 mg/dL 74-106 H BLOOD UREA NITROGEN (test code = BUN) 103 mg/dL 3-21 H GLOMERULAR FILTRATION RATE (test code = GFR) 26 mL/min >=60 Estimated GFR by using Modified MDRD formula.Chronic kidney disease is defined as either kidney damageor GFR <60 mL/min/1.73 m2 for >3 months. CREATININE (test code = CREAT) 2.47 mg/dL 0.55-1.3 H BUN/CREATININE RATIO (test code = BUN/CREA) 41.7 10-20 H CALCIUM (test code = CA) 8.9 mg/dL 8.4-10.2 N HEPATIC FUNCTION [id number] 04:50:00* Test Item Value Reference Range Interpretation Comments TOTAL PROTEIN (test code = PROT) 7.1 g/dL 6.5-8.4 N ALBUMIN (test code = ALB) 3.9 g/dL 3.4-4.8 N GLOBULIN (test code = GLOB) 3.2 G/DL 1-10 N ALBUMIN/GLOBULIN RATIO (test code = A/G) 1.22 RATIO 0.75-1.50 N BILIRUBIN TOTAL (test code = BILT) 0.40 mg/dL 0.0-1.0 N BILIRUBIN DIRECT (test code = BILD) 0.20 mg/dL 0.0-0.30 N SGOT/AST (test code = AST) 22 U/L 6-32 N SGPT/ALT (test code = ALT) 25 U/L 12-78 N N ote: Change in REFERENCE RANGE due to new reagent method. ALKALINE PHOSPHATASE TOTAL (test code = ALKP) 98 U/L 38-126 N [id number] 04:50:00* Test Item Value Reference Range Interpretation Comments MAGNESIUM (test code = MAG) 2.4 mg/dL 1.6-2.3 H [id number] 04:50:00* Test Item Value Reference Range Interpretation Comments TROPONIN-I (test code = TROPI) 0.02 ng/mL 0.00-0.056 N BASIC METABOLIC [id number] 04:48:00* Test Item Value Reference Range Interpretation Comments SODIUM (test code = NA) 136 mmol/L 136-145 N POTASSIUM (test code = K) 2.9 mmol/L 3.5-5.1 L Re sults called to MELISA Sierra V.LAB.IN 05/05/19 0442Critical results verified and read back by Nurse? Y CHLORIDE (test code = CL) 90 mmol/L 101-109 L CARBON DIOXIDE (test code = CO2) 39.5 mmol/L 21-32 H ANION GAP (test code = GAP) 9 mmol/L 10-20 L GLUCOSE (test code = GLU) 168 mg/dL 74-106 H BLOOD UREA NITROGEN (test code = BUN) 103 mg/dL 3-21 H GLOMERULAR FILTRATION RATE (test code = GFR) 26 mL/min >=60 Estimated GFR by using Modified MDRD formula.Chronic kidney disease is defined as either kidney damageor GFR <60 mL/min/1.73 m2 for >3 months. CREATININE (test code = CREAT) 2.47 mg/dL 0.55-1.3 H BUN/CREATININE RATIO (test code = BUN/CREA) 41.7 10-20 H CALCIUM (test code = CA) 8.9 mg/dL 8.4-10.2 N HEPATIC FUNCTION [id number] 04:48:00* Test Item Value Reference Range Interpretation Comments TOTAL PROTEIN (test code = PROT) 7.1 g/dL 6.5-8.4 N ALBUMIN (test code = ALB) 3.9 g/dL 3.4-4.8 N GLOBULIN (test code = GLOB) 3.2 G/DL 1-10 N ALBUMIN/GLOBULIN RATIO (test code = A/G) 1.22 RATIO 0.75-1.50 N BILIRUBIN TOTAL (test code = BILT) 0.40 mg/dL 0.0-1.0 N BILIRUBIN DIRECT (test code = BILD) 0.20 mg/dL 0.0-0.30 N SGOT/AST (test code = AST) 22 U/L 6-32 N SGPT/ALT (test code = ALT) 25 U/L 12-78 N N ote: Change in REFERENCE RANGE due to new reagent method. ALKALINE PHOSPHATASE TOTAL (test code = ALKP) 98 U/L 38-126 N [id number] 04:48:00* Test Item Value Reference Range Interpretation Comments MAGNESIUM (test code = MAG) 2.4 mg/dL 1.6-2.3 H [id number] 04:48:00* Test Item Value Reference Range Interpretation Comments TROPONIN-I (test code = TROPI) 0.02 ng/mL 0.00-0.056 N PROTHROMBIN [id number] 04:44:00* Test Item Value Reference Range Interpretation Comments PROTHROMBIN TIME PATIENT (test code = PTP) 15.0 seconds 9.0-13.0 H INTERNATIONAL NORMAL RATIO (test code = INR) 1.5 0.8-1.2 H The therapeutic range for oral anticoagulant therapy formost indications is an international normalized ratio (INR)of between 2.0 and 3.0. The recommended therapeutic INRrange for various clinical situations is listed below: Clinical Situation INR range Pulmonary e mbolism treatment (2.0-3.0)Venous thrombosis treatmentVenous thrombosis prophylaxis (high risk surgery)Prevention of systemic embolism from: Acute myocardial infarction Valvular heart disease Atrial fibrillation Mechanical prosthetic heart valves (2.5-3.5) IS PATIENT ON ANTICOAGULANTS? YLIST ANTICOAGULANTS ASPIRINBASIC METABOLIC PANEL 2019-05-05 04:43:00* Test Item Value Reference Range Interpretation Comments SODIUM (test code = NA) 136 mmol/L 136-145 N POTASSIUM (test code = K) 2.9 mmol/L 3.5-5.1 L Re sults called to MELISA Sierra V.LABDaltonIN 05/05/19 0442Critical results verified and read back by Nurse? Y CHLORIDE (test code = CL) 90 mmol/L 101-109 L CARBON DIOXIDE (test code = CO2) 39.5 mmol/L 21-32 H ANION GAP (test code = GAP) 9 mmol/L 10-20 L GLUCOSE (test code = GLU) 168 mg/dL 74-106 H BLOOD UREA NITROGEN (test code = BUN) 103 mg/dL 3-21 H GLOMERULAR FILTRATION RATE (test code = GFR) 26 mL/min >=60 Estimated GFR by using Modified MDRD formula.Chronic kidney disease is defined as either kidney damageor GFR <60 mL/min/1.73 m2 for >3 months. CREATININE (test code = CREAT) 2.47 mg/dL 0.55-1.3 H BUN/CREATININE RATIO (test code = BUN/CREA) 41.7 10-20 H CALCIUM (test code = CA) 8.9 mg/dL 8.4-10.2 N HEPATIC FUNCTION [id number] 04:43:00* Test Item Value Reference Range Interpretation Comments TOTAL PROTEIN (test code = PROT) gram/dL 6.4-8.2 ALBUMIN (test code = ALB) g/dL 3.4-5.0 GLOBULIN (test code = GLOB) g/dL 2.7-4.2 ALBUMIN/GLOBULIN RATIO (test code = A/G) 0.75-1.50 BILIRUBIN TOTAL (test code = BILT) mg/dL 0.2-1.2 BILIRUBIN DIRECT (test code = BILD) mg/dL 0.0-0.20 SGOT/AST (test code = AST) IUnit/L 15-37 SGPT/ALT (test code = ALT) U/L 10-69 ALKALINE PHOSPHATASE TOTAL (test code = ALKP) IUnit/L 45-117 [id number] 04:43:00* Test Item Value Reference Range Interpretation Comments MAGNESIUM (test code = MAG) mg/dL 1.8-2.4 [id number] 04:43:00* Test Item Value Reference Range Interpretation Comments TROPONIN-I (test code = TROPI) ng/mL 0-0.045 CBC W/AUTO [id number] 04:30:00* Test Item Value Reference Range Interpretation Comments WHITE BLOOD CELL (test code = WBC) 9.5 K/mm3 4.5-12.5 N RED BLOOD CELL (test code = RBC) 5.80 mill/mm3 4.0-5.8 N HEMOGLOBIN (test code = HGB) 16.1 gram/dL 13.0-17.5 N HEMATOCRIT (test code = HCT) 50.6 % 42.0-52.0 N MEAN CELL VOLUME (test code = MCV) 87.2 fL 80-98 N MEAN CELL HGB (test code = MCH) 27.8 picogram 27.0-33.0 N MEAN CELL HGB CONCETRATION (test code = MCHC) 31.8 gram/dL 33.0-36. 0 L RED CELL DISTRIBUTION WIDTH (test code = RDW) 14.4 % 11.6-16. 2 N RED CELL DISTRIBUTION WIDTH SD (test code = RDW-SD) 47.3 fL 37 .0-51.0 N PLATELET COUNT (test code = PLT) 275 K/mm3 150-450 N MEAN PLATELET VOLUME (test code = MPV) 10.6 fL 6.7-11.0 N NEUTROPHIL % (test code = NT%) 75.9 % 39.0-69.0 H LYMPHOCYTE % (test code = LY%) 12.4 % 25.0-55.0 L MONOCYTE % (test code = MO%) 11.4 % 0.0-10.0 H EOSINOPHIL % (test code = EO%) 0.1 % 0.0-5.0 N BASOPHIL % (test code = BA%) 0.0 % 0.0-1.0 N NEUTROPHIL # (test code = NT#) 7.18 K/mm3 1.8-7.7 N LYMPHOCYTE # (test code = LY#) 1.17 K/mm3 1.0-5.0 N MONOCYTE # (test code = MO#) 1.08 K/mm3 0-0.8 H EOSINOPHIL # (test code = EO#) 0.01 K/mm3 0.0-0.5 N BASOPHIL # (test code = BA#) 0.00 K/mm3 0.0-0.2 N MANUAL DIFF REQUIRED (test code = MDIFF) NO Bedside [id number] 09:07:00* Test Item Value Reference Range Interpretation Comments Bedside Glucose (test code = 76605-6) 126 70-120 H Meter ID: [id number] [facility] 2019-[facility] 06:01:00* Test Item Value Reference Range Interpretation Comments Sodium Level (test code = 2951-2) 138 136-145 [facility] [id number] 06:01:00* Test Item Value Reference Range Interpretation Comments Potassium Level (test code = 2823-3) 3.5 3.5-5.1 [facility] SouthChloride [id number] 06:01:00* Test Item Value Reference Range Interpretation Comments Chloride Level (test code = 2075-0) 81 98-107 L [facility] SouthCarbon Dioxide [id number] 06:01:00* Test Item Value Reference Range Interpretation Comments Carbon Dioxide Level (test code = 2028-9) 43 22-29 HH Results repeated and called to AMINA LEWIS RN at 0600 on 05/04/19 by Roula kincaid Read back and verified.[facility] SouthAnion Gap 2019-05-04 06:01:00* Test Item Value Reference Range Interpretation Comments Anion Gap (test code = 39945-4) 17.5 8-16 H [facility] SouthBlood Urea [id number] 06:01:00* Test Item Value Reference Range Interpretation Comments Blood Urea Nitrogen (test code = 3094-0) 95 7-26 H [facility] SouthCreatinine2019-07-09 06:01:00* Test Item Value Reference Range Interpretation Comments Creatinine (test code = 2160-0) 2.57 0.72-1.25 H [facility] SouthBUN/Creatinine [id number] 06:01:00* Test Item Value Reference Range Interpretation Comments BUN/Creatinine Ratio (test code = 3097-3) 37 6-25 H [facility] SouthEstimat Glomerular Filtration Rate 2019-05-04 06:01:00* Test Item Value Reference Range Interpretation Comments Estimat Glomerular Filtration Rate (test code = 287215312) 25 >60 L Ranges were taken from the National Kidney Disease Education Program and the [facility] literature.Reference ranges:60 or greater: Vfaxah71-72 ( for 3 consecutive months): Chronic kidney disease 15 or less: Kidney failureCHRISTUS Spohn Hospital [facility] Christi – SouthGlucose [id number] 06:01:00* Test Item Value Reference Range Interpretation Comments Glucose Level (test code = PJZ5417) 120 74-118 H [facility] SouthCalcium [id number] 06:01:00* Test Item Value Reference Range Interpretation Comments Calcium Level (test code = 46969-3) 10.2 8.4-10.2 [facility] SouthMagnesium [id number] 06:01:00* Test Item Value Reference Range Interpretation Comments Magnesium Level (test code = 32756-0) 3.1 1.3-2.1 H [facility] SouthB-Type Natriuretic [id number] 05:55:00* Test Item Value Reference Range Interpretation Comments B-Type Natriuretic Peptide (test code = 94412-9) 175.1 0-100 H [facility] SouthWhite Blood [id number] 05:32:00* Test Item Value Reference Range Interpretation Comments White Blood Count (test code = 6690-2) 10.03 4.8-10.8 [facility] SouthRed Blood [id number] 05:32:00* Test Item Value Reference Range Interpretation Comments Red Blood Count (test code = 789-8) 5.79 4.3-5.7 H [facility] SouthHemoglobin2019-07-09 05:32:00* Test Item Value Reference Range Interpretation Comments Hemoglobin (test code = 16785-0) 16.2 14.0-18.0 [facility] SouthHematocrit2019-07-09 05:32:00* Test Item Value Reference Range Interpretation Comments Hematocrit (test code = 4544-3) 51.0 38.2-49.6 H [facility] SouthMean Corpuscular [id number] 05:32:00* Test Item Value Reference Range Interpretation Comments Mean Corpuscular Volume (test code = 787-2) 88.1 81-99 [facility] SouthMean Corpuscular Ceoboeyjqn9939-70-47 05:32:00* Test Item Value Reference Range Interpretation Comments Mean Corpuscular Hemoglobin (test code = 785-6) 28.0 28-32 [facility] Hem[facility] Concent 2019-05-04 05:32:00* Test Item Value Reference Range Interpretation Comments Mean Corpuscular Hemoglobin Concent (test code = 786-4) 31.8 31-35 [facility] Cell Distribution Lhgwc5665-54-32 05:32:00* Test Item Value Reference Range Interpretation Comments Red Cell Distribution Width (test code = 06734-5) 14.8 11.7 -14.4 H [facility] SouthPlatelet Phwsv6276-78-89 05:32:00* Test Item Value Reference Range Interpretation Comments Platelet Count (test code = 777-3) 292 140-360 [facility] SouthNeutrophils (%) (Auto)2019-05-04 05:32:00 * Test Item Value Reference Range Interpretation Comments Neutrophils (%) (Auto) (test code = 64862-0) 77.1 38.7-80.0 [facility] SouthLymphocytes (%) (Auto)2019-05-04 05:32:00 * Test Item Value Reference Range Interpretation Comments Lymphocytes (%) (Auto) (test code = 736-9) 14.1 18.0-39.1 L [facility] SouthMonocytes (%) (Auto)2019-05-04 05:32:00* Test Item Value Reference Range Interpretation Comments Monocytes (%) (Auto) (test code = 5905-5) 8.2 4.4-11.3 [facility] SouthEosinophils (%) (Auto)2019-05-04 05:32:00 * Test Item Value Reference Range Interpretation Comments Eosinophils (%) (Auto) (test code = 713-8) 0.0 0.0-6.0 [facility] SouthBasophils (%) (Auto)2019-05-04 05:32:00* Test Item Value Reference Range Interpretation Comments Basophils (%) (Auto) (test code = 706-2) 0.1 0.0-1.0 [facility] SouthIM GRANULOCYTES %2019-05-04 05:32:00* Test Item Value Reference Range Interpretation Comments IM GRANULOCYTES % (test code = IM GRANULOCYTES %) 0.5 0.0- 1.0 [facility] SouthNeutrophils # (Auto)2019-05-04 05:32:00* Test Item Value Reference Range Interpretation Comments Neutrophils # (Auto) (test code = 751-8) 7.7 2.1-6.9 H [facility] SouthLymphocytes # (Auto)2019-05-04 05:32:00* Test Item Value Reference Range Interpretation Comments Lymphocytes # (Auto) (test code = 85118-3) 1.4 1.0-3.2 [facility] SouthMonocytes # (Auto)2019-05-04 05:32:00* Test Item Value Reference Range Interpretation Comments Monocytes # (Auto) (test code = 742-7) 0.8 0.2-0.8 [facility] SouthEosinophils # (Auto)2019-05-04 05:32:00* Test Item Value Reference Range Interpretation Comments Eosinophils # (Auto) (test code = 711-2) 0.0 0.0-0.4 [facility]Basophils # (Auto)2019-05-04 05:32:00* Test Item Value Reference Range Interpretation Comments Basophils # (Auto) (test code = 704-7) 0.0 0.0-0.1 [facility] SouthAbsolute Immature Granulocyte (auto 2019-05-04 05:32:00* Test Item Value Reference Range Interpretation Comments Absolute Immature Granulocyte (auto (bharat t code = Absolute Immature Granulocyte (auto) 0.05 0-0.1 [facility] SouthBlood Fvvumyh3648-54-65 17:48:00* Test Item Value Reference Range Interpretation Comments Blood Culture (test code = 50403180) NO GROWTH AFTER 72 HOURS [facility] SouthUric Eisq6173-56-58 18:10:00* Test Item Value Reference Range Interpretation Comments Uric Acid (test code = 3084-1) 8.3 4.8-8.0 H [facility] SouthUric Duce0152-31-27 18:10:00* Test Item Value Reference Range Interpretation Comments Uric Acid (test code = 3084-1) 8.3 4.8-8.0 H [facility] SouthUric Pgvi7678-66-39 18:10:00* Test Item Value Reference Range Interpretation Comments Uric Acid (test code = 3084-1) 8.3 4.8-8.0 H [facility] SouthUric Ftwu1259-76-10 18:10:00* Test Item Value Reference Range Interpretation Comments Uric Acid (test code = 3084-1) 8.3 4.8-8.0 H [facility] SouthUric Hkwt2120-77-49 18:10:00* Test Item Value Reference Range Interpretation Comments Uric Acid (test code = 3084-1) 8.3 4.8-8.0 H [facility] SouthUric Xhua7470-91-87 18:10:00* Test Item Value Reference Range Interpretation Comments Uric Acid (test code = 3084-1) 8.3 4.8-8.0 H [facility] [id number] 08:40:00 [facility] [address] [address] Patient Name: STEVE BENEDICT MR #: [id number] : 1945 Age/Sex: 73/M Req #: [id number] Adm Physician: ROSALIE SHORT MD Ordered by: Samara Das [employer] DIRECTOR Report #: [id number] Location: MED/SURG2 Room/Bed: 213 Procedure: [id number] M RI/MRI HAND RIGHT WO Exam Date: Exam Time: REPORT STATUS: Signed Right hand MRI wi thout contrast. History: Swelling. Redness. Spider bite. Middle finger rudy n. Comparison: None Technique: Multiplanar multisequence MRI of the h and without contrast Findings: No acute fracture, subluxation or avascular necrosis. Scattered degenerative change. Questionable small osseous erosi on at the distal thumb side of the third metacarpal best seen on series 6 imag e 18. This could be due to an early inflammatory arthropathy in the appropriat e clinical context. Artifact over the proximal index finger obscures fine d etail of the region. Marked dorsal soft tissue edema about the hand could b e due to cellulitis. No focal collection/abscess is seen. The visualized muscles are normal in size, signal intensity and morphology. No ligamentous or tendon tear is seen. The visualized neurovascular bundles are intact. Impression: Marked dorsal soft tissue edema about the hand could be due to cellulitis. No focal collection/abscess is seen. No underlying cortical destr uction or focal bone marrow edema is seen to suggest osteomyelitis. Signed by: Dr. Lucas Hammer M.D. on 04/30/2019 8:47 AM Dictated By: LUCAS HAMMER MD, MD 6 T ranscribed By: ERAN on 04/30/19846 COPY TO: SAMARA DAS [employer] DIRECTOR Hemoglobin A1c Xuqcjwo6133-45-71 15:13:00* Test Item Value Reference Range Interpretation Comments Hemoglobin A1c Percent (test code = Hemoglobin A1c Percent) 5.6 4.0-7.0 [facility] SouthHemoglobin A1c Yfhfmdy9707-97-48 15:13:00 * Test Item Value Reference Range Interpretation Comments Hemoglobin A1c Percent (test code = Hemoglobin A1c Percent) 5.6 4.0-7.0 [facility] SouthCreatine Kzvcep2637-81-28 14:30:00* Test Item Value Reference Range Interpretation Comments Creatine Kinase (test code = 2157-6) 73 30-200 [facility] SouthCreatine Kinase [id number] 13:53:00* Test Item Value Reference Range Interpretation Comments Creatine Kinase MB (test code = 69381-6) 2.50 0-5.0 [facility] SouthTroponin K6649-57-60 13:53:00* Test Item Value Reference Range Interpretation Comments Troponin I (test code = UZC9467) < 0.001 0-0.300 [facility] SouthTotal Xmkrxqhkv8274-42-11 06:34:00* Test Item Value Reference Range Interpretation Comments Total Bilirubin (test code = 1975-2) 0.5 0.2-1.2 [facility] SouthAspartate Amino Transf (AST/SGOT) 2019-04-24 06:34:00* Test Item Value Reference Range Interpretation Comments Aspartate Amino Transf (AST/SGOT) (test code = Aspartate Amino Transf (AST/SGOT)) 16 5-34 [facility] SouthAlanine Aminotransferase (ALT/SGPT) 2019-04-24 06:34:00* Test Item Value Reference Range Interpretation Comments Alanine Aminotransferase (ALT/SGPT) (test code = 1742-6) 13 0-55 [facility] SouthTotal Pntmewy4109-95-59 06:34:00* Test Item Value Reference Range Interpretation Comments Total Protein (test code = 2885-2) 6.3 6.5-8.1 L [facility] SouthAlbumin2019-06-29 06:34:00* Test Item Value Reference Range Interpretation Comments Albumin (test code = 1751-7) 3.4 3.5-5.0 L [facility] SouthGlobulin2019-06-29 06:34:00* Test Item Value Reference Range Interpretation Comments Globulin (test code = 36450-1) 2.9 2.3-3.5 [facility] SouthAlbumin/Globulin Aozea2490-62-51 06:34:00 * Test Item Value Reference Range Interpretation Comments Albumin/Globulin Ratio (test code = 1759-0) 1.2 0.8-2.0 [facility] SouthAlkaline Moatyuchloe7461-23-09 06:34:00* Test Item Value Reference Range Interpretation Comments Alkaline Phosphatase (test code = 6768-6) 87 40-150 [facility] SouthCHEST 2 [id number] 18:58:00 [facility] [address] [address] Patient Name: STEVE BENEDICT MR #: [id number] : 1945 Age/Sex: 73/M Req #: [id number] Adm Physician: Ordered by: IBAN RAMOS MD Report #: [id number] Location: ER Room/Bed: Procedure: [id number] DX/ CHEST 2 VIEWS Exam Date: 04/23/19 Exam Time: 1830 REPORT STATUS: Signed Frontal and lateral views of the chest. HISTORY: Shortness of breath, fluid in both le gs, leg swelling COMPARISON: Chest radiograph February 08, 2019. CT of the ches t January 05, 2019. DISCUSSION: Lungs: Stable lingular atele ctasis versus scarring. No evidence of a new consolidative pneumonia or pulmon ethan alveolar edema. Pleura: No pleural effusion or pneumothorax. H eart and mediastinum: The cardiomediastinal silhouette appears unremarkable. Mild central pulmonary vascular congestion. Bones and soft tissues: Thoracic kyphosis. DISH (Diffuse idiopathic skeletal hyperostosis). IM PRESSION: 1. Stable lingular atelectasis versus scarring. 2. No new pneum onia or pulmonary alveolar edema. 3. Mild central pulmonary vascular congesti on. Signed by: Dr. John Girard D.O., M.M.M. on 04/23/2019 7:02 PM Dictated By: JOHN GIRARD DO 01 COPY TO: IBAN RAMOS MD Prothrombin [id number] 18:33:00* Test Item Value Reference Range Interpretation Comments Prothrombin Time (test code = 5902-2) 13.7 11.9-14.5 [facility] SouthProthromb Time International Ratio 2019-04-23 18:33:00* Test Item Value Reference Range Interpretation Comments Prothromb Time International Ratio (test code = 6301-6) 1.00 Oral Anticoagulant Therapy INR Values:1. Low Intensity Therapy 1.5 - 2.02 . Moderate Intensity Therapy 2.0 - 3.03. High Intensity Therapy(1) 2.5 - 3. 54. High Intensity Therapy(2) 3.0 - 4.05. Panic Value INR > 5.0 [facility] SouthActivated Partial Thromboplast Time 2019-04-23 18:33:00* Test Item Value Reference Range Interpretation Comments Activated Partial Thromboplast Time (test code = 60320-6) 35.8 23.8-35.5 H [facility] SouthUrine [id number] 18:19:00* Test Item Value Reference Range Interpretation Comments Urine WBC (test code = 5821-4) 6-10 0-5 H [facility] SouthUrine [id number] 18:19:00* Test Item Value Reference Range Interpretation Comments Urine RBC (test code = 24718-0) NONE 0-5 [facility] SouthUrine Lhegxufi5868-20-75 18:19:00* Test Item Value Reference Range Interpretation Comments Urine Bacteria (test code = 59607-7) MODERATE NONE H [facility] SouthUrine Epithelial Mfjvo5792-34-57 18:19:00 * Test Item Value Reference Range Interpretation Comments Urine Epithelial Cells (test code = 86560-4) FEW NONE [facility] SouthUrine Hyaline Zzfka4432-59-57 18:19:00* Test Item Value Reference Range Interpretation Comments Urine Hyaline Casts (test code = 58050-9) 0-1 0-1 [facility] Hyaline Uunvy9128-01-43 18:19:00* Test Item Value Reference Range Interpretation Comments Urine Hyaline Casts (test code = 29953-9) 0-1 0-1 [facility] SouthU[facility] Hyaline Bykpf2406-83-80 18:19:00* Test Item Value Reference Range Interpretation Comments Urine Hyaline Casts (test code = 40108-2) 0-1 0-1 [facility] South[facility] Hyaline Eiuyp3355-17-31 18:19:00* Test Item Value Reference Range Interpretation Comments Urine Hyaline Casts (test code = 53873-4) 0-1 0-1 [facility] South[facility] Hyaline Abhqj5104-77-23 18:19:00* Test Item Value Reference Range Interpretation Comments Urine Hyaline Casts (test code = 22220-1) 0-1 0-1 [facility] Hyaline Rfnjl9580-77-38 18:19:00* Test Item Value Reference Range Interpretation Comments Urine Hyaline Casts (test code = 92938-8) 0-1 0-1 [facility] SouthU[facility] Cxuzn1521-31-52 18:03:00* Test Item Value Reference Range Interpretation Comments Urine Color (test code = 5778-6) YELLOW YELLOW [facility] SouthUrine Wfydapf2744-26-88 18:03:00* Test Item Value Reference Range Interpretation Comments Urine Clarity (test code = 77607-2) CLEAR CLEAR [facility] SouthU[facility] Specific Htyitfi3830-21-47 18:03:00 * Test Item Value Reference Range Interpretation Comments Urine Specific [place] (test code = 5811-5) 1.010 1.010-1.02 5 [facility] SouthUrine [id number] 18:03:00* Test Item Value Reference Range Interpretation Comments Urine pH (test code = 97292-6) 6 5-7 [facility] Leukocyte Uhrlheap4346-91-97 18:03:00* Test Item Value Reference Range Interpretation Comments Urine Leukocyte Esterase (test code = 33982-1) NEGATIVE NEGATIV E [facility] Gxzfigh0164-36-21 18:03:00* Test Item Value Reference Range Interpretation Comments Urine Nitrite (test code = 60120-5) NEGATIVE NEGATIVE [facility] Lowafmp6404-43-38 18:03:00* Test Item Value Reference Range Interpretation Comments Urine Protein (test code = 97631-9) NEGATIVE NEGATIVE [facility] SouthU[facility] Glucose (UA)2019-04-23 18:03:00* Test Item Value Reference Range Interpretation Comments Urine Glucose (UA) (test code = 17317-6) NEGATIVE NEGATIVE [facility] SouthU[facility] Snnjlsj7212-02-97 18:03:00* Test Item Value Reference Range Interpretation Comments Urine Ketones (test code = 40674-0) NEGATIVE NEGATIVE [facility] Vmxkslluxtdz0584-34-38 18:03:00* Test Item Value Reference Range Interpretation Comments Urine Urobilinogen (test code = 26230-3) 0.2 0.2-1 [facility] SouthU[facility] Ownltehtl0829-59-43 18:03:00* Test Item Value Reference Range Interpretation Comments Urine Bilirubin (test code = 1977-8) NEGATIVE NEGATIVE [facility] Wmeof7290-85-71 18:03:00* Test Item Value Reference Range Interpretation Comments Urine Blood (test code = 16436-4) NEGATIVE NEGATIVE [facility] T-SPINE W/O [id number] 16:27:00 Name: STEVE BENEDICT [facility] : 1945 Age/S: 73 / M [address] [facility] Unit #: [id number] Loc: [place] [address] Phys: Adam Hawkins MD Acct: [id number] Dis Date: Status: REG ER PHONE #: [phone] Exam Date: 04/03/2019 1530 FAX #: [phone] Reason: pain, fall EXAMS: CPT CODE: [id number] CT T-SPINE W/O CONTRAST 06256 HISTORY: pain, fall TECHNIQUE: CT of the thoracic spine. FINDINGS: Lower cervical anterior fusion is partially visualized. Kyphosis and degenerative changes are seen in the dorsal spine. Right posterior 12th rib deformity is seen (303/114). Prior healed fracture of the posterior right 11th rib. Prior healed fracture of right posterior 8-11th ribs. Ankylosis of the thoracic vertebral bodies is seen. There is no evidence of acute fracture or dislocation. The visualized upper abdomen shows multiple renal cysts. Atherosclerotic calcifications are seen in the coronary arteries. There is no evidence of pleural or pericardial effusion. The lung blanca show emphysematous changes and bibasilar atelectasis with no evidence of lung nodules or masses. The pulmonary artery bifurcation measures 3.8 cm in diameter, and the adjacent ascending aorta measures 3.6 cm. IMPRESSION: No evidence of acute fracture or dislocation. Scoliosis, kyphosis, and ankylosis at multiple levels in the thoracic spine. Bilateral prior healed rib fractures. Emphysema and pulmonary hypertension. at 1627 Reported and signed by: Antonia Forman M.D. CC: Teofilo Summers MD; Adam Hawkins MD Technologist:Maria Elena Mejia CTDI: DLP: Trnscb Date/Time: 04/03/2019 (1627) [email or web address] Orig Print D/T: S: 04/03/2019 (1630) PAGE 1 Signed Report - XR HIP W/PEL UNI 2+V RT 2019-04-03 15:52:00 Name: STEVE BENEDICT Imaging [facility] : 1945 Age/S:73 /M [address] [place] [address] Unit#:[id number] Loc: [place] [address] Phys: Adam Hawkins MD Dis Date: PHONE #: [phone] Status: REG ER FAX #: [phone] Exam Date: 04/03/2019 Reason: pain, fall EXAMS: CPT CODE: [id number] XR HIP W/PEL UNI 2+[place] [address] HISTORY: pain, fall TECHNIQUE: Single frontal view of the pelvis. Frontal and lateral views of the right hip. FINDINGS: The sacral iliac joints, hip joints, and pubic symphysis are congruent. There is no evidence of acute fracture or dislocation. Postsurgical changes and a device is seen projecting over the right lower quadrant. The soft tissues are within normal limits. Mild degenerative changes are seen in both hips. IMPRESSION: Negative for acute fracture or dislocation. at 1552 Reported and signed by: Antonia Forman M.D. CC: Teofilo Summers MD; Adam Hawkins MD Technologist: Maria Elena Mejia Trnscrpt Data: 04/03/2019 (0402) t.SDR.PB10 Orig Print D/T: S: 04/03/2019 (9234) PAGE 1 Signed Report - XR ANKLE 3 + V [id number] 15:39:00 Name: STEVE BENEDICT Imaging [facility] : 1945 Age/S:73 /M [address] [facility] Unit#:[id number] Loc: [place] [address] Phys: Adam Hawkins MD Dis Date: PHONE #: [phone] Status: REG ER FAX #: [phone] Exam Date: 04/03/2019 Re ason: pain, fall EXAMS: CPT CODE: [id number] XR ANKLE 3 + V RT [address] HISTORY: pain, fall TE CHNIQUE: Frontal, oblique, and lateral views of the right ankle. C OMPARISON: None FINDINGS: The right ankle joint is congruent with no evidence of acute fracture or dislocation. Degenerative osteophyt osis is seen. Leg edema is present with sock sign. Soft tissue swelling ov erlying the medial malleolus. IMPRESSION: Negativ e for acute fracture or dislocation. Degenerative changes and soft tiss ue edema. at 1539 Reported and signed by: Antonia Forman M.D. CC: Teofilo Sheppard MD; Adam Hawkins MD Technologist: Anastasia Mejia Trnscrpt Data: 04/03/2019 (2517) t.DENZEL R.PB10 Orig Print D/T: S: 04/03/2019 (1510) PAGE 1 Signed Report REMOVAL TUNNEDLED CV [id number] 14:30:[address] [address] Patient Name: STEVE BENEDICT MR #: [id number] : 1945 Age/Sex: 73/M Req #: [id number] Adm Physician: ROSALIE SHORT MD Ordered by: Samara Das [employer] DIRECTOR Report #: [id number] Location: MED/SURG3 Room/Bed: [facility] Procedure: [id number] I R/REMOVAL TUNNEDLED CV CATH Exam Date: Exam Time: REPORT STATUS: Signed Date and T cheri: 02/15/2019 Procedure: Removal of tunneled central venous catheter 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 Lopez Pre-operative diagnosis: Tunneled central ve nous catheter no longer needed Post-operative diagnosis: Tunneled central veno us catheter no longer needed Conscious Sedation: None Additional Medic ations: Lidocaine 1% for local anesthesia Contrast used: None Estimated b lood loss: Minimal Blood products administered: None Complications: No immed iate Specimens: Tunneled central venous catheter discarded Implants: None Condition at completion: Stable Disposition: Returned to floor DISCUSS ION: Informed consent was obtained and documented in the medical record after discussion of risks and benefits. The patient was placed in the supine po sition on the fluoroscopic table. A foreign diplomat image was obtained, showing stable p osition of the right internal jugular tunneled low flow central venous cathete r with the tip projecting over the superior cavoatrial junction. The righ t upper chest and existing catheter were then prepped and draped in the standa rd sterile fashion. 1% lidocaine was infiltrated into the skin and subcutaneou s tissues along the catheter exit site for local anesthesia. The retention sut ure was cut. Then, using blunt dissection, the retention cuff of the catheter was freed and the catheter was removed in total. Hemostasis was achieved with manual compression. A sterile dressing was applied. Postprocedure fluoroscopic image was obtained, showing complete removal of the catheter. The patient smita erated the procedure well without immediate complication. IMPRESSI ON: Successful removal of right internal jugular tunneled low flow central venous catheter. Signed by: Dr. Robin Lopez M.D. on 02/15/2019 2:33 PM Dictated By: ROBIN LOPEZ MD 1433 Transcribed By: ERAN on 02/15/19 1433 COPY TO: SAMARA RUBIO NP IR [id number] 14:30:[address] [address] Patient Name: STEVE BENEDICT MR #: [id number] : 1945 Age/Sex: 73/M Req #: [id number] Adm Physician: ROSALIE SHORT MD Ordered by: Samara Das NP Report #: [id number] Location: MED/SURG3 Room/Bed: [facility] Procedure: [id number] D X/IR CONSULT Exam Date: Exam Time: REPORT STATUS: Signed Date and Time: 02/15/2019 Procedure: Removal of tunneled central venous catheter 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 Lopez Pre-operative diagnosis: Tunneled central venous catheter no longer needed Post-operative diagnosis: Tunneled central venous catheter no longer needed Conscious Sedation: None Additional Medications: Lidocai ne 1% for local anesthesia Contrast used: None Estimated blood loss: Mini mal Blood products administered: None Complications: No immediate Specimen s: Tunneled central venous catheter discarded Implants: None Condition at co mpletion: Stable Disposition: Returned to floor DISCUSSION: Informed consent was obtained and documented in the medical record after discussion of risks and benefits. The patient was placed in the supine position on the f luoroscopic table. A foreign diplomat image was obtained, showing stable position of the right internal jugular tunneled low flow central venous catheter with the tip projecting over the superior cavoatrial junction. The right upper chest a nd existing catheter were then prepped and draped in the standard sterile [facility] ion. 1% lidocaine was infiltrated into the skin and subcutaneous tissues along the catheter exit site for local anesthesia. The retention suture was cut. Th en, using blunt dissection, the retention cuff of the catheter was freed and t he catheter was removed in total. Hemostasis was achieved with manual compress ion. A sterile dressing was applied. Postprocedure fluoroscopic image was obta ined, showing complete removal of the catheter. The patient tolerated the proc edure well without immediate complication. IMPRESSION: Succes sful removal of right internal jugular tunneled low flow central venous cathet er. Signed by: Dr. Robin Lopez M.D. on 02/15/2019 2:33 PM Dictated By: ROBIN LOPEZ MD 14 33 Transcribed By: ERAN on 02/15/19 1433 COPY TO: SAMARA DAS NP Bedside Azjsvpm9126-40-48 11:43:00* Test Item Value Reference Range Interpretation Comments Bedside Glucose (test code = 84572-9) 126 70-120 H Meter ID: [id number] SouthB-Type Natriuretic Ahfbbcu7840-65-30 07:04:00* Test Item Value Reference Range Interpretation Comments B-Type Natriuretic Peptide (test code = 70609-7) 91.6 0-100 [facility] SouthActivated Partial Thromboplast Time 2019-02-15 07:01:00* Test Item Value Reference Range Interpretation Comments Activated Partial Thromboplast Time (test code = 65513-7) 38.9 23.8-35.5 H [facility] SouthProthrombin Xwrg3896-04-72 07:00:00* Test Item Value Reference Range Interpretation Comments Prothrombin Time (test code = 5902-2) 13.4 11.9-14.5 [facility] SouthProthromb Time International Ratio 2019-02-15 07:00:00* Test Item Value Reference Range Interpretation Comments Prothromb Time International Ratio (test code = 6301-6) 0.97 Oral Anticoagulant Therapy INR Values:1. Low Intensity Therapy 1.5 - 2.02 . Moderate Intensity Therapy 2.0 - 3.03. High Intensity Therapy(1) 2.5 - 3. 54. High Intensity Therapy(2) 3.0 - 4.05. Panic Value INR > 5.0 [facility] Trnvj1249-97-09 06:47:00* Test Item Value Reference Range Interpretation Comments Sodium Level (test code = 2951-2) 139 136-145 [facility]Potassium Sxgio8977-76-02 06:47:00* Test Item Value Reference Range Interpretation Comments Potassium Level (test code = 2823-3) 4.7 3.5-5.1 [facility] SouthChloride Dgorq1602-07-94 06:47:00* Test Item Value Reference Range Interpretation Comments Chloride Level (test code = 2075-0) 84 98-107 L [facility] SouthCarbon Dioxide Wywmc0606-95-71 06:47:00* Test Item Value Reference Range Interpretation Comments Carbon Dioxide Level (test code = 2028-9) 42 22-29 HH Results repeated and called to KURT CARPENTER RN at 0647 on 02/15/19 by Roula Rivera. Read back and verified.[facility] SouthAnion Gap 2019-02-15 06:47:00* Test Item Value Reference Range Interpretation Comments Anion Gap (test code = 51978-7) 17.7 8-16 H [facility] SouthBlood Urea Xxnmfwfi6996-96-24 06:47:00* Test Item Value Reference Range Interpretation Comments Blood Urea Nitrogen (test code = 3094-0) 68 7-26 H [facility] SouthCreatinine2019-04-22 06:47:00* Test Item Value Reference Range Interpretation Comments Creatinine (test code = 2160-0) 2.16 0.72-1.25 H [facility] SouthBUN/Creatinine Vuhcm3554-88-88 06:47:00* Test Item Value Reference Range Interpretation Comments BUN/Creatinine Ratio (test code = 3097-3) 31 6-25 H [facility] SouthEstimat Glomerular Filtration Rate 2019-02-15 06:47:00* Test Item Value Reference Range Interpretation Comments Estimat Glomerular Filtration Rate (test code = 979769780) 30 >60 L Ranges were taken from the National Kidney Disease Education Program and the [facility] [employer] literature.Reference ranges:60 or greater: Phdqel21-79 ( for 3 consecutive months): Chronic kidney disease 15 or less: Kidney failureCHRISTUS Spohn Hospital [facility] Christi – SouthGlucose Qldmq1547-97-80 06:47:00* Test Item Value Reference Range Interpretation Comments Glucose Level (test code = VUY5804) 140 74-118 H [facility] SouthCalcium Dygwe0552-64-18 06:47:00* Test Item Value Reference Range Interpretation Comments Calcium Level (test code = 99122-8) 10.4 8.4-10.2 H [facility] SouthMagnesium Tqjtj2080-02-29 06:47:00* Test Item Value Reference Range Interpretation Comments Magnesium Level (test code = 71965-0) 3.3 1.3-2.1 H [facility] SouthWhite Blood Icgzb2861-79-78 06:30:00* Test Item Value Reference Range Interpretation Comments White Blood Count (test code = 6690-2) 8.88 4.8-10.8 [facility] SouthRed Blood Aoxcn7679-61-04 06:30:00* Test Item Value Reference Range Interpretation Comments Red Blood Count (test code = 789-8) 6.03 4.3-5.7 H [facility] SouthHemoglobin2019-04-22 06:30:00* Test Item Value Reference Range Interpretation Comments Hemoglobin (test code = 49122-4) 16.4 14.0-18.0 [facility] SouthHematocrit2019-04-22 06:30:00* Test Item Value Reference Range Interpretation Comments Hematocrit (test code = 4544-3) 54.5 38.2-49.6 H [facility] SouthMean Corpuscular Ibfxng2940-05-57 06:30:00* Test Item Value Reference Range Interpretation Comments Mean Corpuscular Volume (test code = 787-2) 90.4 81-99 [facility] SouthMean Corpuscular Gnwndhifhj5754-90-97 06:30:00* Test Item Value Reference Range Interpretation Comments Mean Corpuscular Hemoglobin (test code = 785-6) 27.2 28-32 L [facility] SouthMean Corpuscular Hemoglobin Concent 2019-02-15 06:30:00* Test Item Value Reference Range Interpretation Comments Mean Corpuscular Hemoglobin Concent (test code = 786-4) 30.1 31-35 L [facility] SouthRed Cell Distribution Nkrtg8339-96-97 06:30:00* Test Item Value Reference Range Interpretation Comments Red Cell Distribution Width (test code = 09841-8) 16.2 11.7 -14.4 H [facility] SouthPlatelet Rsurb8446-99-40 06:30:00* Test Item Value Reference Range Interpretation Comments Platelet Count (test code = 777-3) 293 140-360 [facility] SouthNeutrophils (%) (Auto)2019-02-15 06:30:00 * Test Item Value Reference Range Interpretation Comments Neutrophils (%) (Auto) (test code = 69809-6) 65.2 38.7-80.0 [facility] SouthLymphocytes (%) (Auto)2019-02-15 06:30:00 * Test Item Value Reference Range Interpretation Comments Lymphocytes (%) (Auto) (test code = 736-9) 19.8 18.0-39.1 [facility] SouthMonocytes (%) (Auto)2019-02-15 06:30:00* Test Item Value Reference Range Interpretation Comments Monocytes (%) (Auto) (test code = 5905-5) 11.4 4.4-11.3 H [facility] SouthEosinophils (%) (Auto)2019-02-15 06:30:00 * Test Item Value Reference Range Interpretation Comments Eosinophils (%) (Auto) (test code = 713-8) 2.1 0.0-6.0 [facility] SouthBasophils (%) (Auto)2019-02-15 06:30:00* Test Item Value Reference Range Interpretation Comments Basophils (%) (Auto) (test code = 706-2) 1.0 0.0-1.0 [facility] SouthIM GRANULOCYTES %2019-02-15 06:30:00* Test Item Value Reference Range Interpretation Comments IM GRANULOCYTES % (test code = IM GRANULOCYTES %) 0.5 0.0- 1.0 [facility] SouthNeutrophils # (Auto)2019-02-15 06:30:00* Test Item Value Reference Range Interpretation Comments Neutrophils # (Auto) (test code = 751-8) 5.8 2.1-6.9 [facility] SouthLymphocytes # (Auto)2019-02-15 06:30:00* Test Item Value Reference Range Interpretation Comments Lymphocytes # (Auto) (test code = 67981-0) 1.8 1.0-3.2 [facility] SouthMonocytes # (Auto)2019-02-15 06:30:00* Test Item Value Reference Range Interpretation Comments Monocytes # (Auto) (test code = 742-7) 1.0 0.2-0.8 H [facility] SouthEosinophils # (Auto)2019-02-15 06:30:00* Test Item Value Reference Range Interpretation Comments Eosinophils # (Auto) (test code = 711-2) 0.2 0.0-0.4 [facility] SouthBasophils # (Auto)2019-02-15 06:30:00* Test Item Value Reference Range Interpretation Comments Basophils # (Auto) (test code = 704-7) 0.1 0.0-0.1 [facility] SouthAbsolute Immature Granulocyte (auto 2019-02-15 06:30:00* Test Item Value Reference Range Interpretation Comments Absolute Immature Granulocyte (auto (bharat t code = Absolute Immature Granulocyte (auto) 0.04 0-0.1 [facility] SouthMODIFIED BA. SFGDGFZ1016-72-50 08:43:00 [place] [address] Patient Name: STEVE BENEDICT MR #: [id number] : 1945 Age/Sex: 73/M Req #: [id number] Adm Physician: ROSALIE SHORT MD Ordered by: ROSALIE SHORT MD Report #: [id number] Location: MED/SURG3 Room/Bed: [facility] Procedure: [id number] DX /MODIFIED BA. SWALLOW Exam Date: 02/12/19 Exam Time: 0653 REPORT STATUS: Signed EXAM: Modified barium swallow with Speech Pathologist INDICATION: freq PNA [id number] 0653 Y COMPARISON: None available. RADIATION DOSE: Fluoroscopy Time: 1 min 23 seconds Dose (Kerma) Area Product: 788.1 cGycm2 Air Kerma (AK) value has been reviewed. It is below the limits set by the Radiation Protocol Committee (RPC) committee. FINDINGS: See impression IMPRESSION: Laryngeal penetration was noted with adm inistration of thin liquid. Trace silent aspiration was also noted with thin l iquids. Refer to speech pathology report for further details and recommendatio ns. Signed by: Dr. Robin Lopez M.D. on 02/12/2019 8:44 AM Dictated By: ROBIN LOPEZ MD 3 COPY TO: VON SHORT MD Hemoglobin A1c Kgdfidj4767-61-61 07:54:00* Test Item Value Reference Range Interpretation Comments Hemoglobin A1c Percent (test code = Hemoglobin A1c Percent) 6.2 4.0-7.0 [facility] Rqffgtfby7847-20-35 07:03:00* Test Item Value Reference Range Interpretation Comments Free Thyroxine (test code = 3024-7) 0.92 0.9-1.8 [facility] SouthThyroid Stimulating Hormone (TSH) 2019-02-12 07:03:00* Test Item Value Reference Range Interpretation Comments Thyroid Stimulating Hormone (TSH) (test code = 33552-9) 1.875 0.350-4.940 [facility] SouthFr Flglfecal2142-01-20 07:03:00* Test Item Value Reference Range Interpretation Comments Free Thyroxine (test code = 3024-7) 0.92 0.9-1.8 [facility] SouthThyroid Stimulating Hormone (TSH) 2019-02-12 07:03:00* Test Item Value Reference Range Interpretation Comments Thyroid Stimulating Hormone (TSH) (test code = 96665-9) 1.875 0.350-4.940 [facility] SouthFree Wgqzzbegw3781-81-48 07:03:00* Test Item Value Reference Range Interpretation Comments Free Thyroxine (test code = 3024-7) 0.92 0.9-1.8 [facility] SouthThyroid Stimulating Hormone (TSH) 2019-02-12 07:03:00* Test Item Value Reference Range Interpretation Comments Thyroid Stimulating Hormone (TSH) (test code = 91566-3) 1.875 0.350-4.940 [facility] SouthPhosphorus Ustwb6630-45-75 06:43:00* Test Item Value Reference Range Interpretation Comments Phosphorus Level (test code = CZV3420) 3.5 2.3-4.7 [facility] SouthPhosphorus Vsnra6310-76-83 06:43:00* Test Item Value Reference Range Interpretation Comments Phosphorus Level (test code = GNL4095) 3.5 2.3-4.7 [facility] SouthPhosphorus Qorfb0086-01-01 06:43:00* Test Item Value Reference Range Interpretation Comments Phosphorus Level (test code = LBM5277) 3.5 2.3-4.7 [facility] SouthCreatine Azuqrv2713-46-93 13:44:00* Test Item Value Reference Range Interpretation Comments Creatine Kinase (test code = 2157-6) 127 30-200 [facility] SouthCreatine Kinase IT2528-40-40 13:44:00* Test Item Value Reference Range Interpretation Comments Creatine Kinase MB (test code = 01275-6) 2.50 0-5.0 [facility] SouthTroponin A0369-21-26 13:44:00* Test Item Value Reference Range Interpretation Comments Troponin I (test code = QIG5089) 0.017 0-0.300 [facility] SouthTotal Visyndhqv5356-49-18 05:09:00* Test Item Value Reference Range Interpretation Comments Total Bilirubin (test code = 1975-2) 0.6 0.2-1.2 [facility] SouthAspartate Amino Transf (AST/SGOT) 2019-02-09 05:09:00* Test Item Value Reference Range Interpretation Comments Aspartate Amino Transf (AST/SGOT) (test code = Aspartate Amino Transf (AST/SGOT)) 15 5-34 [facility] SouthAlanine Aminotransferase (ALT/SGPT) 2019-02-09 05:09:00* Test Item Value Reference Range Interpretation Comments Alanine Aminotransferase (ALT/SGPT) (test code = 1742-6) 10 0-55 [facility] SouthTotal Yyefeei1055-91-65 05:09:00* Test Item Value Reference Range Interpretation Comments Total Protein (test code = 2885-2) 6.7 6.5-8.1 [facility] SouthAlbumin2019-04-16 05:09:00* Test Item Value Reference Range Interpretation Comments Albumin (test code = 1751-7) 3.4 3.5-5.0 L [facility] SouthGlobulin2019-04-16 05:09:00* Test Item Value Reference Range Interpretation Comments Globulin (test code = 34067-4) 3.3 2.3-3.5 [facility] SouthAlbumin/Globulin Dltsf6858-40-88 05:09:00 * Test Item Value Reference Range Interpretation Comments Albumin/Globulin Ratio (test code = 1759-0) 1.0 0.8-2.0 [facility] SouthAlkaline Ddtegxlxozj0806-22-53 05:09:00* Test Item Value Reference Range Interpretation Comments Alkaline Phosphatase (test code = 6768-6) 78 40-150 [facility] SouthCHEST SINGLE (NOT PORTABLE)2019-02-08 15:46:00 [facility] [address] [place] [address] Patient Name: STEVE BENEDICT MR #: [id number] : 1945 Age/Sex: 73/M Req #: [id number] Adm Physician: Ordered by: VENITA PRADO MD Report #: [id number] Location: ER Room/Bed: Procedure: [id number] D X/CHEST SINGLE (NOT PORTABLE) Exam Date: 02/08/19 Ex am Time: 1450 REPORT STATUS: Signed EXAMINATION: CHEST SINGLE (NOT PORTABLE) INDICATION: Chest pain. COMPARISON: Chest radiograph 01/05/[address] chest 01/05/2019. FI NDINGS: TUBES and LINES: Right IJ tunneled catheter terminates in the mid SVC . LUNGS: Lungs are well inflated. There is mild patchy opacity at the left lung base. No evidence of pulmonary edema. PLEURA: No pleural effusion or pneumothorax. HEART AND MEDIASTINUM: The cardiomediastinal silhouette is unremarkable. There are atherosclerotic calcifications within the aorta. BONES AND SOFT TISSUES: No acute osseous abnormality. Old healed left pos terior rib fractures. UPPER ABDOMEN: No free air under the diaphragm. IMPRESSION: No evidence of pneumothorax. Mild patchy opacity at the left lung base, which may reflect atelectasis or early pneumonia in the [facility] clinical setting. Signed by: Dr. Jose Manuel Person MD on 02/08/2019 3:51 PM Dictated By: JOSE MANUEL PERSON MD 1551 COPY TO: ZELALEM PRADO MD Urine OLU9630-75-19 14:47:00* Test Item Value Reference Range Interpretation Comments Urine WBC (test code = 5821-4) NONE 0-5 [facility] SouthUrine IDY6588-55-46 14:47:00* Test Item Value Reference Range Interpretation Comments Urine RBC (test code = 01903-8) NONE 0-5 [facility] SouthUrine Tvbcpofi5192-54-36 14:47:00* Test Item Value Reference Range Interpretation Comments Urine Bacteria (test code = 62075-9) NONE NONE [facility] SouthUrine Epithelial Iukox1136-02-13 14:47:00 * Test Item Value Reference Range Interpretation Comments Urine Epithelial Cells (test code = 07265-4) RARE NONE [facility] SouthUrine Cpzhp7904-78-02 14:38:00* Test Item Value Reference Range Interpretation Comments Urine Color (test code = 5778-6) YELLOW YELLOW [facility] SouthUrine Knslvty9547-14-36 14:38:00* Test Item Value Reference Range Interpretation Comments Urine Clarity (test code = 26746-3) CLEAR CLEAR [facility] Specific Eyghbbq1812-77-91 14:38:00 * Test Item Value Reference Range Interpretation Comments Urine Specific [place] (test code = 5811-5) 1.010 1.010-1.02 5 [facility] SouthUrine mZ4953-16-18 14:38:00* Test Item Value Reference Range Interpretation Comments Urine pH (test code = 17540-5) 7 5-7 [facility] Leukocyte Hmoyjgdr0065-98-34 14:38:00* Test Item Value Reference Range Interpretation Comments Urine Leukocyte Esterase (test code = 5799-2) NEGATIVE NEGATIVE [facility] Acrykpl9943-76-06 14:38:00* Test Item Value Reference Range Interpretation Comments Urine Nitrite (test code = 83035-1) NEGATIVE NEGATIVE [facility] Fsbnegr0347-56-90 14:38:00* Test Item Value Reference Range Interpretation Comments Urine Protein (test code = 5804-0) NEGATIVE NEGATIVE [facility] Glucose (UA)2019-02-08 14:38:00* Test Item Value Reference Range Interpretation Comments Urine Glucose (UA) (test code = 2349-9) NEGATIVE NEGATIVE [facility] Ytvfidi8875-16-57 14:38:00* Test Item Value Reference Range Interpretation Comments Urine Ketones (test code = 10871-0) NEGATIVE NEGATIVE [facility] Jsvrpntrccdx9241-69-41 14:38:00* Test Item Value Reference Range Interpretation Comments Urine Urobilinogen (test code = 69172-6) 0.2 0.2-1 [facility] Cphvagwhy0844-11-47 14:38:00* Test Item Value Reference Range Interpretation Comments Urine Bilirubin (test code = 1978-6) NEGATIVE NEGATIVE [facility] Mwpdn5907-67-93 14:38:00* Test Item Value Reference Range Interpretation Comments Urine Blood (test code = 76921-3) NEGATIVE NEGATIVE [facility] Egzriim9349-33-85 05:29:00* Test Item Value Reference Range Interpretation Comments Urine Culture (test code = 630-4) Organism: GIOVANNI ALBICANS [facility] Cbyamwe0788-23-78 05:29:00* Test Item Value Reference Range Interpretation Comments Urine Culture (test code = 630-4) Organism: GIOVANNI ALBICANS [facility] Umpxorl5738-82-99 05:29:00* Test Item Value Reference Range Interpretation Comments Urine Culture (test code = 630-4) Organism: GIOVANNI ALBICANS [facility] Addzhqc9651-77-87 05:29:00* Test Item Value Reference Range Interpretation Comments Urine Culture (test code = 630-4) Organism: GIOVANNI ALBICANS [facility] Bstrkkq8561-46-88 05:29:00* Test Item Value Reference Range Interpretation Comments Urine Culture (test code = 630-4) No Result Data Provided [facility] Cjjezdy0118-00-42 05:29:00* Test Item Value Reference Range Interpretation Comments Urine Culture (test code = 630-4) No Result Data Provided [facility] Zrjodes2631-69-57 14:41:00* Test Item Value Reference Range Interpretation Comments Blood Culture (test code = 94401516) NO GROWTH AFTER 5 DAYS, FINAL REPORT [facility] SouthBedside Utnefms5823-63-16 12:09:00* Test Item Value Reference Range Interpretation Comments Bedside Glucose (test code = 41646-1) 151 70-120 H Meter ID: [id number] [facility] Culture 2019-01-09 10:40:00* Test Item Value Reference Range Interpretation Comments Urine Culture (test code = 630-4) Organism: YEAST SPECIES [facility] SouthProcalcitonin2019-03-16 06:48:00* Test Item Value Reference Range Interpretation Comments Procalcitonin (test code = 618654159) 0.07 0.00-0.08 A procalcitonin (PCT) level above 2.0 ng/mL on the firstday of ICU admission is associated with a high risk forprogression to severe sepsis and/or septic shock. A PCT level below 0.5 ng/mL on the first day of ICUadmission is associated with a low risk for progressionto severe sepsis and/or septic shock.Note: Concentrati ons <0.5 ng/mL do not exclude aninfection, on account of localized infections (withoutsystemic signs) which can be associated with such lowconcentrations, or a systemic infection in its initialstages (<6 hours).Furthermore, increased procalcitonin can occur withoutinfection. PCT concentrations between 0.5 and 2.0 ng/mLshould be interpreted taking into account the patient'shistory. It is recommended to retest PCT within 6-24 hoursif any concentrations <2 ng/mL are obtained.Performed at: [facility] [id number] Director: Tito Rodriguez MD, Phone: [phone] [facility] – SouthProcalcitonin2019-03-16 06:48:00* Test Item Value Reference Range Interpretation Comments Procalcitonin (test code = 917745811) 0.07 0.00-0.08 A procalcitonin (PCT) level above 2.0 ng/mL on the firstday of ICU admission is associated with a high risk forprogression to severe sepsis and/or septic shock. A PCT level below 0.5 ng/mL on the first day of ICUadmission is associated with a low risk for progressionto severe sepsis and/or septic shock.Note: Concentrati ons <0.5 ng/mL do not exclude aninfection, on account of localized infections (withoutsystemic signs) which can be associated with such lowconcentrations, or a systemic infection in its initialstages (<6 hours).Furthermore, increased procalcitonin can occur withoutinfection. PCT concentrations between 0.5 and 2.0 ng/mLshould be interpreted taking into account the patient'shistory. It is recommended to retest PCT within 6-24 hoursif any concentrations <2 ng/mL are obtained.Performed at: [address] [id number] Director: Tito Rodriguez MD, Phone: [phone] [facility]ohn [facility] – SouthProcalcitonin2019-03-16 06:48:00* Test Item Value Reference Range Interpretation Comments Procalcitonin (test code = 482575895) 0.07 0.00-0.08 A procalcitonin (PCT) level above 2.0 ng/mL on the firstday of ICU admission is associated with a high risk forprogression to severe sepsis and/or septic shock. A PCT level below 0.5 ng/mL on the first day of ICUadmission is associated with a low risk for progressionto severe sepsis and/or septic shock.Note: Concentrati ons <0.5 ng/mL do not exclude aninfection, on account of localized infections (withoutsystemic signs) which can be associated with such lowconcentrations, or a systemic infection in its initialstages (<6 hours).Furthermore, increased procalcitonin can occur withoutinfection. PCT concentrations between 0.5 and 2.0 ng/mLshould be interpreted taking into account the patient'shistory. It is recommended to retest PCT within 6-24 hoursif any concentrations <2 ng/mL are obtained.Performed at: [address] [id number] Director: Tito Rodriguez MD, Phone: [phone] Spohn Hospital [facility]i – SouthProcalcitonin2019-03-16 06:48:00* Test Item Value Reference Range Interpretation Comments Procalcitonin (test code = 703183888) 0.07 0.00-0.08 A procalcitonin (PCT) level above 2.0 ng/mL on the firstday of ICU admission is associated with a high risk forprogression to severe sepsis and/or septic shock. A PCT level below 0.5 ng/mL on the first day of ICUadmission is associated with a low risk for progressionto severe sepsis and/or septic shock.Note: Concentrati ons <0.5 ng/mL do not exclude aninfection, on account of localized infections (withoutsystemic signs) which can be associated with such lowconcentrations, or a systemic infection in its initialstages (<6 hours).Furthermore, increased procalcitonin can occur withoutinfection. PCT concentrations between 0.5 and 2.0 ng/mLshould be interpreted taking into account the patient'shistory. It is recommended to retest PCT within 6-24 hoursif any concentrations <2 ng/mL are obtained.Performed at: [facility] [employer] [id number] Director: Tito Rodriguez MD, Phone: [phone] Spohn Hospital [facility]i – SouthProcalcitonin2019-03-16 06:48:00* Test Item Value Reference Range Interpretation Comments Procalcitonin (test code = 796565761) 0.07 0.00-0.08 A procalcitonin (PCT) level above 2.0 ng/mL on the firstday of ICU admission is associated with a high risk forprogression to severe sepsis and/or septic shock. A PCT level below 0.5 ng/mL on the first day of ICUadmission is associated with a low risk for progressionto severe sepsis and/or septic shock.Note: Concentrati ons <0.5 ng/mL do not exclude aninfection, on account of localized infections (withoutsystemic signs) which can be associated with such lowconcentrations, or a systemic infection in its initialstages (<6 hours).Furthermore, increased procalcitonin can occur withoutinfection. PCT concentrations between 0.5 and 2.0 ng/mLshould be interpreted taking into account the patient'shistory. It is recommended to retest PCT within 6-24 hoursif any concentrations <2 ng/mL are obtained.Performed at: [facility] [employer] [id number] Director: Tito Rodriguez MD, Phone: [phone] Spohn Hospital [facility] Christi – SouthProcalcitonin2019-03-16 06:48:00* Test Item Value Reference Range Interpretation Comments Procalcitonin (test code = 743071846) 0.07 0.00-0.08 A procalcitonin (PCT) level above 2.0 ng/mL on the firstday of ICU admission is associated with a high risk forprogression to severe sepsis and/or septic shock. A PCT level below 0.5 ng/mL on the first day of ICUadmission is associated with a low risk for progressionto severe sepsis and/or septic shock.Note: Concentrati ons <0.5 ng/mL do not exclude aninfection, on account of localized infections (withoutsystemic signs) which can be associated with such lowconcentrations, or a systemic infection in its initialstages (<6 hours).Furthermore, increased procalcitonin can occur withoutinfection. PCT concentrations between 0.5 and 2.0 ng/mLshould be interpreted taking into account the patient'shistory. It is recommended to retest PCT within 6-24 hoursif any concentrations <2 ng/mL are obtained.Performed at: [employer] [id number] Director: Tito Rodriguez MD, Phone: [phone] Spohn Hospital Corpus Christi – SouthProcalcitonin2019-03-16 06:48:00* Test Item Value Reference Range Interpretation Comments Procalcitonin (test code = 595966310) 0.07 0.00-0.08 A procalcitonin (PCT) level above 2.0 ng/mL on the firstday of ICU admission is associated with a high risk forprogression to severe sepsis and/or septic shock. A PCT level below 0.5 ng/mL on the first day of ICUadmission is associated with a low risk for progressionto severe sepsis and/or septic shock.Note: Concentrati ons <0.5 ng/mL do not exclude aninfection, on account of localized infections (withoutsystemic signs) which can be associated with such lowconcentrations, or a systemic infection in its initialstages (<6 hours).Furthermore, increased procalcitonin can occur withoutinfection. PCT concentrations between 0.5 and 2.0 ng/mLshould be interpreted taking into account the patient'shistory. It is recommended to retest PCT within 6-24 hoursif any concentrations <2 ng/mL are obtained.Performed at: [employer] [id number] Director: Tito Rodriguez MD, Phone: [phone] Spohn Hospital [facility] Christi – SouthB-Type Natriuretic Gpjckqb8722-38-58 05:08:00* Test Item Value Reference Range Interpretation Comments B-Type Natriuretic Peptide (test code = 80449-6) 381.1 0-100 [facility] Southodium Rqsra6829-58-33 04:31:00* Test Item Value Reference Range Interpretation Comments Sodium Level (test code = 2951-2) 140 136-145 [facility] SouthPotassium Uwrgg3204-16-38 04:31:00* Test Item Value Reference Range Interpretation Comments Potassium Level (test code = 2823-3) 4.4 3.5-5.1 [facility] SouthChloride Nftkd7283-68-29 04:31:00* Test Item Value Reference Range Interpretation Comments Chloride Level (test code = 2075-0) 91 98-107 L [facility] SouthCarbon Dioxide Igqzf8942-01-30 04:31:00* Test Item Value Reference Range Interpretation Comments Carbon Dioxide Level (test code = 2028-9) 40 22-29 H [facility] SouthAnion Fuu0130-52-78 04:31:00* Test Item Value Reference Range Interpretation Comments Anion Gap (test code = 78198-3) 13.4 8-16 [facility] SouthBlood Urea Ctgahfqf8493-99-86 04:31:00* Test Item Value Reference Range Interpretation Comments Blood Urea Nitrogen (test code = 3094-0) 33 7-26 H [facility] SouthCreatinine2019-03-16 04:31:00* Test Item Value Reference Range Interpretation Comments Creatinine (test code = 2160-0) 1.41 0.72-1.25 H [facility] SouthBUN/Creatinine Ueerj2478-21-13 04:31:00* Test Item Value Reference Range Interpretation Comments BUN/Creatinine Ratio (test code = 3097-3) 23 6-25 [facility] SouthEstimat Glomerular Filtration Rate 2019-01-09 04:31:00* Test Item Value Reference Range Interpretation Comments Estimat Glomerular Filtration Rate (test code = 413280033) 49 >60 L Ranges were taken from the National Kidney Disease Education Program and the [facility] [employer] literature.Reference ranges:60 or greater: Tbqqzo94-71 ( for 3 consecutive months): Chronic kidney disease 15 or less: Kidney failureCHRISTUS Spohn Hospital Corpus Christi – SouthGlucose Sgnbv3113-75-05 04:31:00* Test Item Value Reference Range Interpretation Comments Glucose Level (test code = LYV4568) 154 74-118 H [facility] SouthCalcium Zdghk4708-17-28 04:31:00* Test Item Value Reference Range Interpretation Comments Calcium Level (test code = 03735-0) 8.8 8.4-10.2 [facility] SouthMagnesium Bttae7739-93-77 04:31:00* Test Item Value Reference Range Interpretation Comments Magnesium Level (test code = 89495-4) 2.5 1.3-2.1 H [facility] SouthWhite Blood Cjgan5695-36-04 04:08:00* Test Item Value Reference Range Interpretation Comments White Blood Count (test code = 6690-2) 8.53 4.8-10.8 [facility] SouthRed Blood Rsjlm2102-89-77 04:08:00* Test Item Value Reference Range Interpretation Comments Red Blood Count (test code = 789-8) 6.08 4.3-5.7 H [facility] SouthHemoglobin2019-03-16 04:08:00* Test Item Value Reference Range Interpretation Comments Hemoglobin (test code = 98098-6) 16.4 14.0-18.0 [facility] SouthHematocrit2019-03-16 04:08:00* Test Item Value Reference Range Interpretation Comments Hematocrit (test code = 4544-3) 54.7 38.2-49.6 H [facility] – SouthMean Corpuscular Kyqssp2991-70-58 04:08:00* Test Item Value Reference Range Interpretation Comments Mean Corpuscular Volume (test code = 787-2) 90.0 81-99 [facility] SouthMean Corpuscular Yhdpxykeoi7053-64-65 04:08:00* Test Item Value Reference Range Interpretation Comments Mean Corpuscular Hemoglobin (test code = 785-6) 27.0 28-32 L [facility] SouthMean Corpuscular Hemoglobin Concent 2019-01-09 04:08:00* Test Item Value Reference Range Interpretation Comments Mean Corpuscular Hemoglobin Concent (test code = 786-4) 30.0 31-35 L [facility] SouthRed Cell Distribution Pnqpa9548-75-71 04:08:00* Test Item Value Reference Range Interpretation Comments Red Cell Distribution Width (test code = 34149-1) 17.9 11.7 -14.4 H [facility] SouthPlatelet Lptdy1338-77-94 04:08:00* Test Item Value Reference Range Interpretation Comments Platelet Count (test code = 777-3) 220 140-360 [facility] SouthNeutrophils (%) (Auto)2019-01-09 04:08:00 * Test Item Value Reference Range Interpretation Comments Neutrophils (%) (Auto) (test code = 19456-2) 87.2 38.7-80.0 H [facility] – SouthLymphocytes (%) (Auto)2019-01-09 04:08:00 * Test Item Value Reference Range Interpretation Comments Lymphocytes (%) (Auto) (test code = 736-9) 7.0 18.0-39.1 L [facility] SouthMonocytes (%) (Auto)2019-01-09 04:08:00* Test Item Value Reference Range Interpretation Comments Monocytes (%) (Auto) (test code = 5905-5) 4.6 4.4-11.3 [facility] SouthEosinophils (%) (Auto)2019-01-09 04:08:00 * Test Item Value Reference Range Interpretation Comments Eosinophils (%) (Auto) (test code = 713-8) 0.0 0.0-6.0 [facility] SouthBasophils (%) (Auto)2019-01-09 04:08:00* Test Item Value Reference Range Interpretation Comments Basophils (%) (Auto) (test code = 706-2) 0.1 0.0-1.0 [facility] SouthIM GRANULOCYTES %2019-01-09 04:08:00* Test Item Value Reference Range Interpretation Comments IM GRANULOCYTES % (test code = IM GRANULOCYTES %) 1.1 0.0- 1.0 H [facility] SouthNeutrophils # (Auto)2019-01-09 04:08:00* Test Item Value Reference Range Interpretation Comments Neutrophils # (Auto) (test code = 751-8) 7.4 2.1-6.9 H [facility] SouthLymphocytes # (Auto)2019-01-09 04:08:00* Test Item Value Reference Range Interpretation Comments Lymphocytes # (Auto) (test code = 51474-0) 0.6 1.0-3.2 L [facility] SouthMonocytes # (Auto)2019-01-09 04:08:00* Test Item Value Reference Range Interpretation Comments Monocytes # (Auto) (test code = 742-7) 0.4 0.2-0.8 [facility] SouthEosinophils # (Auto)2019-01-09 04:08:00* Test Item Value Reference Range Interpretation Comments Eosinophils # (Auto) (test code = 711-2) 0.0 0.0-0.4 [facility] SouthBasophils # (Auto)2019-01-09 04:08:00* Test Item Value Reference Range Interpretation Comments Basophils # (Auto) (test code = 704-7) 0.0 0.0-0.1 [facility] SouthAbsolute Immature Granulocyte (auto 2019-01-09 04:08:00* Test Item Value Reference Range Interpretation Comments Absolute Immature Granulocyte (auto (bharat t code = Absolute Immature Granulocyte (auto) 0.09 0-0.1 [facility] SouthBlood Pftfudu6025-56-95 14:39:00* Test Item Value Reference Range Interpretation Comments Blood Culture (test code = 11174874) NO GROWTH AFTER 72 HOURS [facility] SouthDifferential Total Cells Counted 2019-01-08 04:37:00* Test Item Value Reference Range Interpretation Comments Differential Total Cells Counted (test code = Differen tial Total Cells Counted) 100 [facility] SouthNeutrophils % (Manual)2019-01-08 04:37:00 * Test Item Value Reference Range Interpretation Comments Neutrophils % (Manual) (test code = 61219-2) 91 40-74 H [facility] SouthLymphocytes % (Manual)2019-01-08 04:37:00 * Test Item Value Reference Range Interpretation Comments Lymphocytes % (Manual) (test code = 737-7) 6 19-48 L [facility] SouthMonocytes % (Manual)2019-01-08 04:37:00* Test Item Value Reference Range Interpretation Comments Monocytes % (Manual) (test code = 744-3) 3 3.4-9.0 L [facility] SouthPlatelet Bvypwedf0910-99-17 04:37:00* Test Item Value Reference Range Interpretation Comments Platelet Estimate (test code = 77412-7) ADEQUATE [facility] SouthPlatelet Morphology Hzwxues3374-79-51 04:37:00* Test Item Value Reference Range Interpretation Comments Platelet Morphology Comment (test code = 60437-2) NORMAL [facility] SouthRed Cell Morphology Fezmbzt6384-98-13 04:37:00* Test Item Value Reference Range Interpretation Comments Red Cell Morphology Comment (test code = 6742-1) NORMAL [facility] SouthDifferential Total Cells Counted 2019-01-08 04:37:00* Test Item Value Reference Range Interpretation Comments Differential Total Cells Counted (test code = Differsean tial Total Cells Counted) 100 [facility] SouthNeutrophils % (Manual)2019-01-08 04:37:00 * Test Item Value Reference Range Interpretation Comments Neutrophils % (Manual) (test code = 42997-2) 91 40-74 H [facility] SouthLymphocytes % (Manual)2019-01-08 04:37:00 * Test Item Value Reference Range Interpretation Comments Lymphocytes % (Manual) (test code = 737-7) 6 19-48 L [facility] SouthMonocytes % (Manual)2019-01-08 04:37:00* Test Item Value Reference Range Interpretation Comments Monocytes % (Manual) (test code = 744-3) 3 3.4-9.0 L [facility] SouthPlatelet Uyzdooep8671-04-87 04:37:00* Test Item Value Reference Range Interpretation Comments Platelet Estimate (test code = 92509-6) ADEQUATE [facility] SouthPlatelet Morphology Hikcwmb8476-54-54 04:37:00* Test Item Value Reference Range Interpretation Comments Platelet Morphology Comment (test code = 90121-2) NORMAL [facility] SouthRed Cell Morphology Chargah5492-71-94 04:37:00* Test Item Value Reference Range Interpretation Comments Red Cell Morphology Comment (test code = 6742-1) NORMAL [facility] SouthDifferential Total Cells Counted 2019-01-08 04:37:00* Test Item Value Reference Range Interpretation Comments Differential Total Cells Counted (test code = Renettasean tial Total Cells Counted) 100 [facility] SouthNeutrophils % (Manual)2019-01-08 04:37:00 * Test Item Value Reference Range Interpretation Comments Neutrophils % (Manual) (test code = 17136-4) 91 40-74 H [facility] SouthLymphocytes % (Manual)2019-01-08 04:37:00 * Test Item Value Reference Range Interpretation Comments Lymphocytes % (Manual) (test code = 737-7) 6 19-48 L [facility] SouthMonocytes % (Manual)2019-01-08 04:37:00* Test Item Value Reference Range Interpretation Comments Monocytes % (Manual) (test code = 744-3) 3 3.4-9.0 L [facility] SouthPlatelet Fckucgbd3142-67-13 04:37:00* Test Item Value Reference Range Interpretation Comments Platelet Estimate (test code = 06291-5) ADEQUATE [facility] SouthPlatelet Morphology Denjzim3696-26-53 04:37:00* Test Item Value Reference Range Interpretation Comments Platelet Morphology Comment (test code = 99888-3) NORMAL [facility] SouthRed Cell Morphology Ibkcbiu4778-84-39 04:37:00* Test Item Value Reference Range Interpretation Comments Red Cell Morphology Comment (test code = 6742-1) NORMAL [facility] SouthDifferential Total Cells Counted 2019-01-08 04:37:00* Test Item Value Reference Range Interpretation Comments Differential Total Cells Counted (test code = Differen tial Total Cells Counted) 100 [facility] SouthNeutrophils % (Manual)2019-01-08 04:37:00 * Test Item Value Reference Range Interpretation Comments Neutrophils % (Manual) (test code = 99889-2) 91 40-74 H [facility] SouthLymphocytes % (Manual)2019-01-08 04:37:00 * Test Item Value Reference Range Interpretation Comments Lymphocytes % (Manual) (test code = 737-7) 6 19-48 L [facility] SouthMonocytes % (Manual)2019-01-08 04:37:00* Test Item Value Reference Range Interpretation Comments Monocytes % (Manual) (test code = 744-3) 3 3.4-9.0 L [facility] SouthPlatelet Tzjbehzj6698-54-23 04:37:00* Test Item Value Reference Range Interpretation Comments Platelet Estimate (test code = 88431-7) ADEQUATE [facility] SouthPlatelet Morphology Irhskno5238-06-94 04:37:00* Test Item Value Reference Range Interpretation Comments Platelet Morphology Comment (test code = 84790-4) NORMAL [facility] SouthRed Cell Morphology Kmvcufe8993-97-63 04:37:00* Test Item Value Reference Range Interpretation Comments Red Cell Morphology Comment (test code = 6742-1) NORMAL [facility] SouthDifferential Total Cells Counted 2019-01-08 04:37:00* Test Item Value Reference Range Interpretation Comments Differential Total Cells Counted (test code = Differen tial Total Cells Counted) 100 [facility] SouthNeutrophils % (Manual)2019-01-08 04:37:00 * Test Item Value Reference Range Interpretation Comments Neutrophils % (Manual) (test code = 33908-1) 91 40-74 H [facility] SouthLymphocytes % (Manual)2019-01-08 04:37:00 * Test Item Value Reference Range Interpretation Comments Lymphocytes % (Manual) (test code = 737-7) 6 19-48 L [facility] SouthMonocytes % (Manual)2019-01-08 04:37:00* Test Item Value Reference Range Interpretation Comments Monocytes % (Manual) (test code = 744-3) 3 3.4-9.0 L [facility] SouthPlatelet Uzebvdtm7469-47-73 04:37:00* Test Item Value Reference Range Interpretation Comments Platelet Estimate (test code = 88981-0) ADEQUATE [facility] SouthPlatelet Morphology Txtovgh8586-46-52 04:37:00* Test Item Value Reference Range Interpretation Comments Platelet Morphology Comment (test code = 91689-2) NORMAL [facility] SouthRed Cell Morphology Uqnclpu1879-61-86 04:37:00* Test Item Value Reference Range Interpretation Comments Red Cell Morphology Comment (test code = 6742-1) NORMAL [facility] SouthDifferential Total Cells Counted 2019-01-08 04:37:00* Test Item Value Reference Range Interpretation Comments Differential Total Cells Counted (test code = Eduardo tial Total Cells Counted) 100 [facility] SouthNeutrophils % (Manual)2019-01-08 04:37:00 * Test Item Value Reference Range Interpretation Comments Neutrophils % (Manual) (test code = 53686-2) 91 40-74 H [facility] SouthLymphocytes % (Manual)2019-01-08 04:37:00 * Test Item Value Reference Range Interpretation Comments Lymphocytes % (Manual) (test code = 737-7) 6 19-48 L [facility] SouthMonocytes % (Manual)2019-01-08 04:37:00* Test Item Value Reference Range Interpretation Comments Monocytes % (Manual) (test code = 744-3) 3 3.4-9.0 L [facility] SouthPlatelet Gtpzberw0718-86-92 04:37:00* Test Item Value Reference Range Interpretation Comments Platelet Estimate (test code = 18764-9) ADEQUATE [facility] SouthPlatelet Morphology Uawvbxr2506-02-19 04:37:00* Test Item Value Reference Range Interpretation Comments Platelet Morphology Comment (test code = 17972-9) NORMAL [facility] SouthRed Cell Morphology Qijpqmg5793-49-42 04:37:00* Test Item Value Reference Range Interpretation Comments Red Cell Morphology Comment (test code = 6742-1) NORMAL [facility] SouthDifferential Total Cells Counted 2019-01-08 04:37:00* Test Item Value Reference Range Interpretation Comments Differential Total Cells Counted (test code = Differsean tial Total Cells Counted) 100 [facility] SouthNeutrophils % (Manual)2019-01-08 04:37:00 * Test Item Value Reference Range Interpretation Comments Neutrophils % (Manual) (test code = 92035-5) 91 40-74 H [facility] SouthLymphocytes % (Manual)2019-01-08 04:37:00 * Test Item Value Reference Range Interpretation Comments Lymphocytes % (Manual) (test code = 737-7) 6 19-48 L [facility] SouthMonocytes % (Manual)2019-01-08 04:37:00* Test Item Value Reference Range Interpretation Comments Monocytes % (Manual) (test code = 744-3) 3 3.4-9.0 L [facility] SouthPlatelet Tsyydmkx3558-10-91 04:37:00* Test Item Value Reference Range Interpretation Comments Platelet Estimate (test code = 24673-9) ADEQUATE [facility] SouthPlatelet Morphology Yprkemw7542-82-14 04:37:00* Test Item Value Reference Range Interpretation Comments Platelet Morphology Comment (test code = 74845-6) NORMAL [facility] SouthRed Cell Morphology Tbtcpfb6449-75-48 04:37:00* Test Item Value Reference Range Interpretation Comments Red Cell Morphology Comment (test code = 6742-1) NORMAL [facility] SouthUrine [id number] 11:55:00* Test Item Value Reference Range Interpretation Comments Urine WBC (test code = 5821-4) 0-5 0-5 [facility] SouthUrine RTN5289-35-33 11:55:00* Test Item Value Reference Range Interpretation Comments Urine RBC (test code = 85821-4) NONE 0-5 [facility] SouthUrine Bnhkrunw9950-54-14 11:55:00* Test Item Value Reference Range Interpretation Comments Urine Bacteria (test code = 36205-3) NONE NONE [facility] SouthUrine Epithelial Jonni0033-14-73 11:55:00 * Test Item Value Reference Range Interpretation Comments Urine Epithelial Cells (test code = 40043-8) MODERATE NONE [facility] SouthUrine Transitional Epithelial Cells 2019-01-07 11:55:00* Test Item Value Reference Range Interpretation Comments Urine Transitional Epithelial Cells (test code = 8249-5) RARE NONE [facility] Hyaline Gnfwo8274-80-88 11:55:00* Test Item Value Reference Range Interpretation Comments Urine Hyaline Casts (test code = 03176-5) >15 0-1 H [facility] Transitional Epithelial Cells 2019-01-07 11:55:00* Test Item Value Reference Range Interpretation Comments Urine Transitional Epithelial Cells (test code = 8249-5) RARE NONE [facility] Hyaline Nwbbq8691-49-90 11:55:00* Test Item Value Reference Range Interpretation Comments Urine Hyaline Casts (test code = 48541-3) >15 0-1 H [facility] Transitional Epithelial Cells 2019-01-07 11:55:00* Test Item Value Reference Range Interpretation Comments Urine Transitional Epithelial Cells (test code = 8249-5) RARE NONE [facility] Transitional Epithelial Cells 2019-01-07 11:55:00* Test Item Value Reference Range Interpretation Comments Urine Transitional Epithelial Cells (test code = 8249-5) RARE NONE [facility] Transitional Epithelial Cells 2019-01-07 11:55:00* Test Item Value Reference Range Interpretation Comments Urine Transitional Epithelial Cells (test code = 8249-5) RARE NONE [facility] Transitional Epithelial Cells 2019-01-07 11:55:00* Test Item Value Reference Range Interpretation Comments Urine Transitional Epithelial Cells (test code = 8249-5) RARE NONE [facility] Transitional Epithelial Cells 2019-01-07 11:55:00* Test Item Value Reference Range Interpretation Comments Urine Transitional Epithelial Cells (test code = 8249-5) RARE NONE [facility] SouthUrine Buetz4343-15-01 11:47:00* Test Item Value Reference Range Interpretation Comments Urine Color (test code = 5778-6) STRAW YELLOW [facility] SouthUrine Cbfvhhz0522-20-99 11:47:00* Test Item Value Reference Range Interpretation Comments Urine Clarity (test code = 27199-7) CLEAR CLEAR [facility] Specific Qzdrgub5630-53-41 11:47:00 * Test Item Value Reference Range Interpretation Comments Urine Specific [place] (test code = 5811-5) 1.010 1.010-1.02 5 [facility] SouthUrine iC4198-35-26 11:47:00* Test Item Value Reference Range Interpretation Comments Urine pH (test code = 65046-9) 6 5-7 [facility] Leukocyte Rdqamzdk6663-67-30 11:47:00* Test Item Value Reference Range Interpretation Comments Urine Leukocyte Esterase (test code = 5799-2) NEGATIVE NEGATIVE [facility] Trznldy9740-98-76 11:47:00* Test Item Value Reference Range Interpretation Comments Urine Nitrite (test code = 20719-9) NEGATIVE NEGATIVE [facility] Qdueanq4100-29-35 11:47:00* Test Item Value Reference Range Interpretation Comments Urine Protein (test code = 5804-0) NEGATIVE NEGATIVE [facility] Glucose (UA)2019-01-07 11:47:00* Test Item Value Reference Range Interpretation Comments Urine Glucose (UA) (test code = 2349-9) NEGATIVE NEGATIVE [facility] Qzoypmr6655-28-21 11:47:00* Test Item Value Reference Range Interpretation Comments Urine Ketones (test code = 78670-5) NEGATIVE NEGATIVE [facility] Ilorafgfxiag0030-36-91 11:47:00* Test Item Value Reference Range Interpretation Comments Urine Urobilinogen (test code = 63551-8) 0.2 0.2-1 [facility] Biixppdkp4314-13-08 11:47:00* Test Item Value Reference Range Interpretation Comments Urine Bilirubin (test code = 1978-6) NEGATIVE NEGATIVE [facility] SouthUrine Ovipa5321-48-47 11:47:00* Test Item Value Reference Range Interpretation Comments Urine Blood (test code = 40512-1) NEGATIVE NEGATIVE [facility] SouthCreat[facility] Kinase [id number] 15:17:00* Test Item Value Reference Range Interpretation Comments Creatine Kinase MB (test code = 77949-6) 2.50 0-5.0 [facility] SouthTroponin [id number] 15:17:00* Test Item Value Reference Range Interpretation Comments Troponin I (test code = EPS5069) 0.005 0-0.300 [facility] SouthCreatine Zjohxi9174-59-06 15:04:00* Test Item Value Reference Range Interpretation Comments Creatine Kinase (test code = 2157-6) 66 30-200 [facility]US ABDOMEN IFKLDJAF0227-32-67 12:01:00 [facility] [address] [place] [address] Patient Name: STEVE BENEDICT MR #: [id number] : 1945 Age/Sex: 73/M Req #: [id number] Adm Physician: ROSALIE SHORT MD Ordered by: Samara Das NP Report #: [id number] Location: MED/SURG Room/Bed: [facility] Procedure: [id number] U S/US ABDOMEN COMPLETE Exam Date: 01/06/19 Exam Time: 0900 REPORT STATUS: Signed EXAM: US ABDOMEN COMPLETE DATE: 01/06/2019 12:00 AM INDICATION: Chronic renal insufficiency COMPARISON: Renal ultrasound, 07/31/2018 FINDINGS: Grayscale and color flow Doppler ultrasound of the abdomen was performed. Liver: 18.9 cm span, hepatomegaly. Hyperechoic parenchyma compatible with st eatosis. No intrahepatic mass or dilatation of bile ducts. Main portal vein 1. 2 cm, nondilated, normal hepatopetal flow. Spleen: 13.2 cm span, borderline splenomegaly. Biliary: There are no shadowing gallstones. Small amount of echogenic sludge is seen within the gallbladder. No gallbladder wall thickenin g. Sonographic Tomlinson sign negative. Common bile duct 0.5 cm, normal. Paitno creas: Obscured by overlying bowel. Right kidney: 12.5 x 5.0 x 4.9 cm. Norm al cortical echogenicity. No hydronephrosis. Lower pole cyst measures 3.4 x 2. 9 x 2.9 cm (previous 2.0 x 2.3 x 2.4 cm). Left kidney: 12.2 x 5.2 x 4.4 c m. Normal cortical echogenicity. No hydronephrosis. Left renal cysts measure 3 .4 x 3.5 x 3.9 cm at the medial mid left kidney (previous 3.1 x 2.8 x 2.5 cm) and 2.0 x 1.3 x 2.2 cm at the lower pole (previous 1.8 x 1.9 x 1.3 cm). A thir d cyst previously noted at the lower pole is not visualized on the current exa m. Vessels: Aorta and IVC are largely obscured by bowel. Visualized portion s unremarkable. Ascites: None IMPRESSION: 1. No sonographic zaki dence for acute abdominal pathology. 2. Hepatomegaly with steatosis. Border line splenomegaly. 3. No hydronephrosis. Bilateral renal cysts again noted, minimally larger than on previous exam. Signed by: Pete Freeman on 01/06/2019 12:10 PM Dictated By: VENITA AZUL MD Electronically Si gned By: VENITA AZUL MD on 01/06/19 1210 Transcribed By: ERAN on 01/06/19 1210 COPY TO: SAMARA DAS NP Free Qwfqvxrdd1711-40-45 09:35:00* Test Item Value Reference Range Interpretation Comments Free Thyroxine (test code = 3024-7) 0.76 0.9-1.8 L [facility] SouthThyroid Stimulating Hormone (TSH) 2019-01-06 09:35:00* Test Item Value Reference Range Interpretation Comments Thyroid Stimulating Hormone (TSH) (test code = 16224-0) 0.739 0.350-4.940 [facility] SouthHemoglobin A1c Rvuijgg3950-26-17 08:54:00 * Test Item Value Reference Range Interpretation Comments Hemoglobin A1c Percent (test code = Hemoglobin A1c Percent) 6.2 4.0-7.0 [facility] SouthArterial Blood [id number] 01:40:00* Test Item Value Reference Range Interpretation Comments Arterial Blood pH (test code = 2744-1) 7.35 7.31-7.41 [facility] SouthArterial Blood Partial Pressure CO2 2019-01-06 01:40:00* Test Item Value Reference Range Interpretation Comments Arterial Blood Partial Pressure CO2 (test code = 2018-8) 66 41-51 HH Results called to MELISA ORDONEZ at 2005 on 01/05/19 by Jimy Rosales. RB [place].[facility] SouthArterial Blood Partial Pressure [id number] 01:40:00* Test Item Value Reference Range Interpretation Comments Arterial Blood Partial Pressure O2 (test code = 2018-8) 98 80-105 [facility] SouthArterial Blood [id number] 01:40:00* Test Item Value Reference Range Interpretation Comments Arterial Blood HCO3 (test code = 1960-4) 36 23-28 H [facility] SouthArterial Blood Base Hfxplm7227-64-21 01:40:00* Test Item Value Reference Range Interpretation Comments Arterial Blood Base Excess (test code = 1925-7) 10.0 -2-3 H [facility] SouthArterial Blood Oxygen Saturation 2019-01-06 01:40:00* Test Item Value Reference Range Interpretation Comments Arterial Blood Oxygen Saturation (test code = 2708-6) 97.0 95-98 [facility] SouthFiO22019-03-13 01:40:00* Test Item Value Reference Range Interpretation Comments FiO2 (test code = FiO2) 35 PT ON 4L NC SATTING 100% HR80 [id number] [facility] Arterial Blood [id number] 01:40:00* Test Item Value Reference Range Interpretation Comments Arterial Blood pH (test code = 2744-1) 7.35 7.31-7.41 [facility] SouthArterial Blood Partial Pressure CO2 2019-01-06 01:40:00* Test Item Value Reference Range Interpretation Comments Arterial Blood Partial Pressure CO2 (test code = 2019-8) 66 41-51 HH Results called to MELISA ORDONEZ at 2004 on 01/05/19 by Jimy Rosales. CATHY [place].[facility] SouthArterial Blood Partial Pressure [id number] 01:40:00* Test Item Value Reference Range Interpretation Comments Arterial Blood Partial Pressure O2 (test code = 2018-8) 98 80-105 [facility] SouthArterial Blood [id number] 01:40:00* Test Item Value Reference Range Interpretation Comments Arterial Blood HCO3 (test code = 1960-4) 36 23-28 H [facility] SouthArterial Blood Base Jmaspr2497-29-87 01:40:00* Test Item Value Reference Range Interpretation Comments Arterial Blood Base Excess (test code = 1925-7) 10.0 -2-3 H [facility] SouthArterial Blood Oxygen Saturation 2019-01-06 01:40:00* Test Item Value Reference Range Interpretation Comments Arterial Blood Oxygen Saturation (test code = 2708-6) 97.0 95-98 [facility] SouthFiO22019-03-13 01:40:00* Test Item Value Reference Range Interpretation Comments FiO2 (test code = FiO2) 35 PT ON 4L NC SATTING 100% HR80 [id number] [facility]ohn [facility] Arterial Blood [id number] 01:40:00* Test Item Value Reference Range Interpretation Comments Arterial Blood pH (test code = 2744-1) 7.35 7.31-7.41 [facility] SouthArterial Blood Partial Pressure CO2 2019-01-06 01:40:00* Test Item Value Reference Range Interpretation Comments Arterial Blood Partial Pressure CO2 (test code = 2019-8) 66 41-51 HH Results called to MELISA ORDONEZ at 2004 on 01/05/19 by Jimy Rosales. [place]Y [place].[facility] SouthArterial Blood Partial Pressure [id number] 01:40:00* Test Item Value Reference Range Interpretation Comments Arterial Blood Partial Pressure O2 (test code = 2018-8) 98 80-105 [facility] SouthArterial Blood [id number] 01:40:00* Test Item Value Reference Range Interpretation Comments Arterial Blood HCO3 (test code = 1960-4) 36 23-28 H [facility] SouthArterial Blood Base Htkcld8689-19-25 01:40:00* Test Item Value Reference Range Interpretation Comments Arterial Blood Base Excess (test code = 1925-7) 10.0 -2-3 H [facility] SouthArterial Blood Oxygen Saturation 2019-01-06 01:40:00* Test Item Value Reference Range Interpretation Comments Arterial Blood Oxygen Saturation (test code = 2708-6) 97.0 95-98 [facility] SouthFiO22019-03-13 01:40:00* Test Item Value Reference Range Interpretation Comments FiO2 (test code = FiO2) 35 PT ON 4L NC SATTING 100% HR80 [id number] [facility] Arterial Blood [id number] 01:40:00* Test Item Value Reference Range Interpretation Comments Arterial Blood pH (test code = 2744-1) 7.35 7.31-7.41 [facility] SouthArterial Blood Partial Pressure CO2 2019-01-06 01:40:00* Test Item Value Reference Range Interpretation Comments Arterial Blood Partial Pressure CO2 (test code = 2018-8) 66 41-51 HH Results called to MELISA ORDONEZ at 2005 on 01/05/19 by Jiym Rosales. RB [place].[facility] SouthArterial Blood Partial Pressure [id number] 01:40:00* Test Item Value Reference Range Interpretation Comments Arterial Blood Partial Pressure O2 (test code = 2018-8) 98 80-105 [facility] SouthArterial Blood [id number] 01:40:00* Test Item Value Reference Range Interpretation Comments Arterial Blood HCO3 (test code = 1960-4) 36 23-28 H [facility] SouthArterial Blood Base Kwfyug2801-71-72 01:40:00* Test Item Value Reference Range Interpretation Comments Arterial Blood Base Excess (test code = 1925-7) 10.0 -2-3 H [facility] SouthArterial Blood Oxygen Saturation 2019-01-06 01:40:00* Test Item Value Reference Range Interpretation Comments Arterial Blood Oxygen Saturation (test code = 2708-6) 97.0 95-98 [facility] SouthFiO22019-03-13 01:40:00* Test Item Value Reference Range Interpretation Comments FiO2 (test code = FiO2) 35 PT ON 4L NC SATTING 100% HR80 [id number] [facility]ohn [facility] Arterial Blood [id number] 01:40:00* Test Item Value Reference Range Interpretation Comments Arterial Blood pH (test code = 2744-1) 7.35 7.31-7.41 [facility] SouthAr[facility]ial Blood Partial Pressure CO2 2019-01-06 01:40:00* Test Item Value Reference Range Interpretation Comments Arterial Blood Partial Pressure CO2 (test code = 2018-8) 66 41-51 HH Results called to MELISA ORDONEZ at 2005 on 01/05/19 by Jimy Rosales. RB [place].[facility] SouthArterial Blood Partial Pressure [id number] 01:40:00* Test Item Value Reference Range Interpretation Comments Arterial Blood Partial Pressure O2 (test code = 2018-8) 98 80-105 [facility] SouthArterial Blood [id number] 01:40:00* Test Item Value Reference Range Interpretation Comments Arterial Blood HCO3 (test code = 1960-4) 36 23-28 H [facility] SouthArterial Blood Base Fmzdtv3733-01-67 01:40:00* Test Item Value Reference Range Interpretation Comments Arterial Blood Base Excess (test code = 1925-7) 10.0 -2-3 H [facility] SouthArterial Blood Oxygen Saturation 2019-01-06 01:40:00* Test Item Value Reference Range Interpretation Comments Arterial Blood Oxygen Saturation (test code = 2708-6) 97.0 95-98 [facility] SouthFiO22019-03-13 01:40:00* Test Item Value Reference Range Interpretation Comments FiO2 (test code = FiO2) 35 PT ON 4L NC SATTING 100% HR80 [id number] [facility] [id number] 21:08:00 [facility] [address] [address] Patient Name: STEVE BENEDICT MR #: [id number] : 1945 Age/Sex: 73/M Req #: [id number] Adm Physician: Ordered by: TAMIE WADDELL [employer]GR[employer] DIRECTOR Report #: [id number] Location: ER Room/Bed: Procedure: [id number] CT/CT CHEST W Exam Date: 01/05/19 Exam Time: 2004 REPORT STATUS: Signed EXAM: CT Ch est WITH contrast (PE Protocol) INDICATION: Shortness of breath NAZANIN RISON: Chest x-ray 01/05/2019 TECHNIQUE: Chest was scanned utilizing a [facility] helical scanner from the lung apex through the level of the diaphra gm after administration of IV contrast. Thin section reconstructions were obta ined with special concentration on the pulmonary arteries. Coronal and sagitta l reformations were obtained. Pulmonary embolism protocol was performed. MIP r econstruction images in sagittal and coronal performed by the technologist at the scanner workstation. IV CONTRAST: 100 mL of Isovue 370 COMPLICAT IONS: None RADIATION DOSE: Total DLP: 653.84 mGy*cm Estimate d effective dose: (DLP x 0.014 x size factor) mSv CTDIvol has been review ed. It is below the limits set by the Radiation Protocol Committee (RPC). Dose modulation, iterative reconstruction, and/or weight based adjustment of the mA/kV was utilized to reduce the radiation dose to as low as reasonably achievable. FINDINGS: LINES/ TUBES: LAD and right coronary artery ron nt versus severe coronary artery calcifications. LUNGS AND AIRWAYS: No fi lling defect is identified within the pulmonary arteries to the segmental leve l. Severe centrilobular emphysema. Lingular atelectasis. Airways are normal. PLEURA: The pleural spaces are clear. HEART AND MEDIASTINUM: The thyr oid gland is normal. No mediastinal, hilar or axillary lymphadenopathy. The heart is mildly enlarged. There is no pericardial effusion. Main pulmonary a rtery measures 3.6 cm in diameter and the ascending aorta measures 3.4 cm. UPPER ABDOMEN: Lobular liver contour suggestive of developing cirrhosis. Spleen is enlarged measuring 15.1 cm in AP dimension with lobulation. Multiple cystic lesions in the left kidney. BONES: The visualized bony thorax is within normal limits. Old healed left posterior rib fracture deformities. Anterior cervical fusion plate. SOFT TISSUES: Unremarkable. IMPRESSION: 1. No pulmonary emboli. 2. Severe emphysema. 3. Cirrhotic liver morphology wi th moderate splenomegaly. 4. Incompletely characterized renal cystic lesions. Recommend nonemergent renal ultrasound or CT or MR abdomen without and with c ontrast for further characterization. Signed by: Dr. Jeremias Floyd M.D. on 12/25 9:13 PM Dictated By: JEREMIAS FLOYD MD 12 Transcribed By: ERAN on 01/05/192112 COPY TO: TAMIE WADDELL NP CHEST SINGLE (PORTABLE)2019-01-05 17:14:00 [address] [place] [address] Patient Name: STEVE BENEDICT MR #: [id number] : 1945 Age/Sex: 73/M Req #: [id number] Adm Physician: Ordered by: TAMIE WADDELL NP Report #: [id number] Location: Room/Bed: Procedure: [id number] DX/CHEST SINGLE (PORTABLE) Exam Date: 01/05/19 Exam Time: 1650 REPORT STATUS: Signed EXAMINATION: CHEST SINGLE (PORTABLE) INDICATION: Retaining water in both legs. History of COPD and shortness of breath. No chest pain. C OMPARISON: Chest x-ray 12/11/2018. FINDINGS: AP view TUBES an d LINES: Right-sided portacatheter with tip at the lower SVC. LUNGS: Lung s are well inflated. Focal airspace opacity in the left lung base with platel augusto atelectasis. PLEURA: No pleural effusion or pneumothorax. HEA RT AND MEDIASTINUM: Cardiac size is mildly enlarged. There are atheroscleroti c calcifications within the aorta. BONES AND SOFT TISSUES: No acute osseou s lesion. Multiple healed left rib fracture deformities. Soft tissues are unre markable. UPPER ABDOMEN: No free air under the diaphragm. IMPRESSI ON: Focal airspace opacity in the left lung base with platelike atelectasis. Correlate for recent pneumonia. Signed by: Dr. Jeremias Floyd M.D. on 019 5:15 PM Dictated By: JEREMIAS FLOYD MD 14 Transcribed By: ERAN on 01/05/191714 COPY TO: TAMIE ARREGUIN NP B-Type Natriuretic Hnabxee2639-73-24 15:08:00* Test Item Value Reference Range Interpretation Comments B-Type Natriuretic Peptide (test code = 57674-6) 344.6 0-100 H [facility] SouthCreatine Kinase [id number] 15:07:00* Test Item Value Reference Range Interpretation Comments Creatine Kinase MB (test code = 22849-0) 1.70 0-5.0 [facility] SouthTroponin [id number] 15:07:00* Test Item Value Reference Range Interpretation Comments Troponin I (test code = THO3985) 0.015 0-0.300 [facility] Southodium Kbcio6281-57-42 14:59:00* Test Item Value Reference Range Interpretation Comments Sodium Level (test code = 2951-2) 138 136-145 [facility] SouthPotassium Bgqsg6142-61-15 14:59:00* Test Item Value Reference Range Interpretation Comments Potassium Level (test code = 2823-3) 3.8 3.5-5.1 [facility] SouthChloride Vlbaw9310-09-50 14:59:00* Test Item Value Reference Range Interpretation Comments Chloride Level (test code = 2075-0) 93 98-107 L [facility] SouthCarbon Dioxide Aqhhu1917-33-62 14:59:00* Test Item Value Reference Range Interpretation Comments Carbon Dioxide Level (test code = 2028-9) 39 22-29 H [facility] SouthAnion [id number] 14:59:00* Test Item Value Reference Range Interpretation Comments Anion Gap (test code = 67993-4) 9.8 8-16 [facility] SouthBlood Urea Cbivblwy5512-67-87 14:59:00* Test Item Value Reference Range Interpretation Comments Blood Urea Nitrogen (test code = 3094-0) 18 7-26 [facility] SouthCreatinine2019-03-12 14:59:00* Test Item Value Reference Range Interpretation Comments Creatinine (test code = 2160-0) 1.47 0.72-1.25 H [facility] SouthBUN/Creatinine Yvobm2741-29-05 14:59:00* Test Item Value Reference Range Interpretation Comments BUN/Creatinine Ratio (test code = 3097-3) 12 6-25 [facility] SouthEstimat Glomerular Filtration Rate 2019-01-05 14:59:00* Test Item Value Reference Range Interpretation Comments Estimat Glomerular Filtration Rate (test code = 694101049) 47 >60 L Ranges were taken from the National Kidney Disease Education Program and the [facility] [employer] literature.Reference ranges:60 or greater: Adtpnc51-72 ( for 3 consecutive months): Chronic kidney disease 15 or less: Kidney failureCHRISTUS Spohn Hospital Corpus Christi – SouthGlucose Hbgqr8036-02-37 14:59:00* Test Item Value Reference Range Interpretation Comments Glucose Level (test code = HOW0911) 116 74-118 [facility] SouthCalcium Uzlgf5456-32-07 14:59:00* Test Item Value Reference Range Interpretation Comments Calcium Level (test code = 98512-1) 9.0 8.4-10.2 [facility] SouthTotal Dcvtdefif1980-23-26 14:59:00* Test Item Value Reference Range Interpretation Comments Total Bilirubin (test code = 1975-2) 0.6 0.2-1.2 [facility] SouthAspartate Amino Transf (AST/SGOT) 2019-01-05 14:59:00* Test Item Value Reference Range Interpretation Comments Aspartate Amino Transf (AST/SGOT) (test code = Aspartate Amino Transf (AST/SGOT)) 17 5-34 [facility] SouthAlanine Aminotransferase (ALT/SGPT) 2019-01-05 14:59:00* Test Item Value Reference Range Interpretation Comments Alanine Aminotransferase (ALT/SGPT) (test code = 1742-6) 14 0-55 [facility] SouthTotal Rxnrmwm5035-59-06 14:59:00* Test Item Value Reference Range Interpretation Comments Total Protein (test code = 2885-2) 6.6 6.5-8.1 [facility] SouthAlbumin2019-03-12 14:59:00* Test Item Value Reference Range Interpretation Comments Albumin (test code = 1751-7) 3.5 3.5-5.0 [facility] SouthGlobulin2019-03-12 14:59:00* Test Item Value Reference Range Interpretation Comments Globulin (test code = 71165-5) 3.1 2.3-3.5 [facility] SouthAlbumin/Globulin Scemg4123-90-43 14:59:00 * Test Item Value Reference Range Interpretation Comments Albumin/Globulin Ratio (test code = 1759-0) 1.1 0.8-2.0 [facility] SouthAlkaline Nfnhbhrfvhl4208-95-07 14:59:00* Test Item Value Reference Range Interpretation Comments Alkaline Phosphatase (test code = 6768-6) 106 40-150 [facility] SouthCreatine Ewwrzu6195-79-17 14:59:00* Test Item Value Reference Range Interpretation Comments Creatine Kinase (test code = 2157-6) 83 30-200 [facility] SouthTotal Tlaggvryf2406-26-12 14:59:00* Test Item Value Reference Range Interpretation Comments Total Bilirubin (test code = 1975-2) 0.6 0.2-1.2 [facility] SouthAspartate Amino Transf (AST/SGOT) 2019-01-05 14:59:00* Test Item Value Reference Range Interpretation Comments Aspartate Amino Transf (AST/SGOT) (test code = Aspartate Amino Transf (AST/SGOT)) 17 5-34 [facility] SouthAlanine Aminotransferase (ALT/SGPT) 2019-01-05 14:59:00* Test Item Value Reference Range Interpretation Comments Alanine Aminotransferase (ALT/SGPT) (test code = 1742-6) 14 0-55 [facility] SouthTotal Hvqhsef7435-66-26 14:59:00* Test Item Value Reference Range Interpretation Comments Total Protein (test code = 2885-2) 6.6 6.5-8.1 [facility] SouthAlbumin2019-03-12 14:59:00* Test Item Value Reference Range Interpretation Comments Albumin (test code = 1751-7) 3.5 3.5-5.0 [facility] SouthGlobulin2019-03-12 14:59:00* Test Item Value Reference Range Interpretation Comments Globulin (test code = 33853-4) 3.1 2.3-3.5 [facility] SouthAlbumin/Globulin Fmftb6693-29-28 14:59:00 * Test Item Value Reference Range Interpretation Comments Albumin/Globulin Ratio (test code = 1759-0) 1.1 0.8-2.0 [facility] SouthAlkaline Kostqdckxyf8038-32-91 14:59:00* Test Item Value Reference Range Interpretation Comments Alkaline Phosphatase (test code = 6768-6) 106 40-150 [facility] SouthLactic Acid Gnjlo9811-52-40 14:57:00* Test Item Value Reference Range Interpretation Comments Lactic Acid Level (test code = Lactic Acid Level) 13.5 4.5- 19.8 [facility] SouthLactic Acid Hpfts0877-38-72 14:57:00* Test Item Value Reference Range Interpretation Comments Lactic Acid Level (test code = Lactic Acid Level) 13.5 4.5- 19.8 [facility] SouthLactic Acid Vbxkp7485-09-11 14:57:00* Test Item Value Reference Range Interpretation Comments Lactic Acid Level (test code = Lactic Acid Level) 13.5 4.5- 19.8 [facility] SouthLactic Acid Wlqqo6382-78-72 14:57:00* Test Item Value Reference Range Interpretation Comments Lactic Acid Level (test code = Lactic Acid Level) 13.5 4.5- 19.8 [facility] SouthProthrombin Vwsg6139-64-62 14:51:00* Test Item Value Reference Range Interpretation Comments Prothrombin Time (test code = 5902-2) 16.2 11.9-14.5 H [facility] SouthProthromb Time International Ratio 2019-01-05 14:51:00* Test Item Value Reference Range Interpretation Comments Prothromb Time International Ratio (test code = 6301-6) 1.24 Oral Anticoagulant Therapy INR Values:1. Low Intensity Therapy 1.5 - 2.02 . Moderate Intensity Therapy 2.0 - 3.03. High Intensity Therapy(1) 2.5 - 3. 54. High Intensity Therapy(2) 3.0 - 4.05. Panic Value INR > 5.0 [facility] SouthActivated Partial Thromboplast Time 2019-01-05 14:51:00* Test Item Value Reference Range Interpretation Comments Activated Partial Thromboplast Time (test code = 95496-1) 38.8 23.8-35.5 H [facility] SouthProthrombin Hqqt9977-57-14 14:51:00* Test Item Value Reference Range Interpretation Comments Prothrombin Time (test code = 5902-2) 16.2 11.9-14.5 H [facility] SouthProthromb Time International Ratio 2019-01-05 14:51:00* Test Item Value Reference Range Interpretation Comments Prothromb Time International Ratio (test code = 6301-6) 1.24 Oral Anticoagulant Therapy INR Values:1. Low Intensity Therapy 1.5 - 2.02 . Moderate Intensity Therapy 2.0 - 3.03. High Intensity Therapy(1) 2.5 - 3. 54. High Intensity Therapy(2) 3.0 - 4.05. Panic Value INR > 5.0 [facility] Partial Thromboplast Time 2019-01-05 14:51:00* Test Item Value Reference Range Interpretation Comments Activated Partial Thromboplast Time (test code = 95424-2) 38.8 23.8-35.5 H [facility] SouthWhite Blood Ohkoa4318-46-71 14:43:00* Test Item Value Reference Range Interpretation Comments White Blood Count (test code = 6690-2) 4.52 4.8-10.8 L [facility] SouthRed Blood Zmmtm8980-66-79 14:43:00* Test Item Value Reference Range Interpretation Comments Red Blood Count (test code = 789-8) 5.99 4.3-5.7 H [facility] SouthHemoglobin2019-03-12 14:43:00* Test Item Value Reference Range Interpretation Comments Hemoglobin (test code = 94426-3) 16.2 14.0-18.0 [facility] SouthHematocrit2019-03-12 14:43:00* Test Item Value Reference Range Interpretation Comments Hematocrit (test code = 4544-3) 55.5 38.2-49.6 H [facility] SouthMean Corpuscular Ldbhxh3081-00-74 14:43:00* Test Item Value Reference Range Interpretation Comments Mean Corpuscular Volume (test code = 787-2) 92.7 81-99 [facility]Mean Corpuscular Gcoiqjgxxz1246-25-92 14:43:00* Test Item Value Reference Range Interpretation Comments Mean Corpuscular Hemoglobin (test code = 785-6) 27.0 28-32 L [facility] SouthMean Corpuscular Hemoglobin Concent 2019-01-05 14:43:00* Test Item Value Reference Range Interpretation Comments Mean Corpuscular Hemoglobin Concent (test code = 786-4) 29.2 31-35 L [facility] SouthRed Cell Distribution Shmga2657-42-85 14:43:00* Test Item Value Reference Range Interpretation Comments Red Cell Distribution Width (test code = 14389-0) 18.1 11.7 -14.4 H [facility] SouthPlatelet Mvbnt8859-67-31 14:43:00* Test Item Value Reference Range Interpretation Comments Platelet Count (test code = 777-3) 171 140-360 [facility] SouthNeutrophils (%) (Auto)2019-01-05 14:43:00 * Test Item Value Reference Range Interpretation Comments Neutrophils (%) (Auto) (test code = 93788-8) 62.2 38.7-80.0 [facility] SouthLymphocytes (%) (Auto)2019-01-05 14:43:00 * Test Item Value Reference Range Interpretation Comments Lymphocytes (%) (Auto) (test code = 736-9) 17.7 18.0-39.1 L [facility] SouthMonocytes (%) (Auto)2019-01-05 14:43:00* Test Item Value Reference Range Interpretation Comments Monocytes (%) (Auto) (test code = 5905-5) 11.9 4.4-11.3 H [facility] SouthEosinophils (%) (Auto)2019-01-05 14:43:00 * Test Item Value Reference Range Interpretation Comments Eosinophils (%) (Auto) (test code = 713-8) 6.9 0.0-6.0 H [facility] SouthBasophils (%) (Auto)2019-01-05 14:43:00* Test Item Value Reference Range Interpretation Comments Basophils (%) (Auto) (test code = 706-2) 0.9 0.0-1.0 [facility] SouthIM GRANULOCYTES %2019-01-05 14:43:00* Test Item Value Reference Range Interpretation Comments IM GRANULOCYTES % (test code = IM GRANULOCYTES %) 0.4 0.0- 1.0 [facility] SouthNeutrophils # (Auto)2019-01-05 14:43:00* Test Item Value Reference Range Interpretation Comments Neutrophils # (Auto) (test code = 751-8) 2.8 2.1-6.9 [facility] SouthLymphocytes # (Auto)2019-01-05 14:43:00* Test Item Value Reference Range Interpretation Comments Lymphocytes # (Auto) (test code = 77929-8) 0.8 1.0-3.2 L [facility] SouthMonocytes # (Auto)2019-01-05 14:43:00* Test Item Value Reference Range Interpretation Comments Monocytes # (Auto) (test code = 742-7) 0.5 0.2-0.8 [facility] SouthEosinophils # (Auto)2019-01-05 14:43:00* Test Item Value Reference Range Interpretation Comments Eosinophils # (Auto) (test code = 711-2) 0.3 0.0-0.4 [facility]Basophils # (Auto)2019-01-05 14:43:00* Test Item Value Reference Range Interpretation Comments Basophils # (Auto) (test code = 704-7) 0.0 0.0-0.1 [facility] SouthAbsolute Immature Granulocyte (auto 2019-01-05 14:43:00* Test Item Value Reference Range Interpretation Comments Absolute Immature Granulocyte (auto (bharat t code = Absolute Immature Granulocyte (auto) 0.02 0-0.1 [facility]CIAL [facility]ED[facility] HYS5302-12-31 17:11:00 [place] [address] Patient Name: STEVE BENEDICT MR #: [id number] : 1945 Age/Sex: 73/M Req #: [id number] Adm Physician: HAILEE MCGUIRE MD Ordered by: SUHAS BLACK MD Report #: [id number] Location: [facility] Room/Bed: [place] [address] Procedure: [id number] IR/S PECIAL PROCEDURE IN [facility]EARCH LABORATORY SPECIALIST Exam Date: Exam Time: REPORT STATUS: Signed PROCEDURE: PLACEMENT OF RIGHT IJ TUNNELED SMALL BORE CATHETER WITH ULTRASOUND AND FLUOR OSCOPIC GUIDANCE INDICATION: Requiring shelter IV access for antibiotics OPERATORS: Jose Manuel Person MD RADIATION EXPOSURE: Fluoroscopy Time: 1.2 minutes Dose area product (DAP): 246.1 cGycm2 CONSENT: The patien t was informed of the nature of the proposed procedure. The purposes, alterna tives, risks, and benefits were explained and discussed. All questions were a nswered and written consent was obtained. ANESTHESIA: Local sedation. Demetra nuous hemodynamic and respiratory monitoring was performed, including the use of pulse oximetry. TOTAL BLOOD LOSS: 30 cc MEDICATIONS: 20 cc of 1% subcutaneous lidocaine TECHNIQUE: The patient was brought to the angiog demetrius suite, and the right neck and upper chest were prepped and draped in sta ndard sterile fashion. All elements of maximal sterile barrier technique were followed including cap and mask, sterile gown, sterile gloves, large sterile s heet, hand hygiene and 2% chlorhexidine for cutaneous antisepsis. Pre-procedu re time-out confirmed the patient identity and the procedure to be performed. Using standard sterile technique, 1 % lidocaine was administered subcutane ously for local anesthesia. Ultrasound demonstrated that the right internal ju gular was patent and compressible. Under continuous sonographic guidance, the right internal jugular vein was accessed using a 21 G micropuncture needle. An .018'' microwire was placed to secure access and confirming venous access by advancement into the IVC. A needle was exchanged for the peel away sheath. Appropriate measurements were made using the microwire. Attention was then turned towards the subcutaneous tunnel. After administration of 1% lidocaine subcutaneously for local anesthesia, a 6 Fr x 27 cm double lumen tunneled sm all bore catheter was tunneled in an antegrade direction from skin exit site t o venotomy site. The catheter was then advanced through the peel-away sheath i nto the superior vena cava. After confirming appropriate position with fluoro scopy the catheter tip at the cavoatrial junction, the peel-away sheath was re moved, and the lumen was aspirated, check flushed, and terminally flushed with heparin solution. The catheter was secured using 3-0 Ethilon pursestring sutu re at the catheter exit site and also 3-0 Ethilon sutures at the catheter hub. At this time, the patient developed oozing from the venotomy and chest e ntrance site, requiring prolonged mild compression lasting approximately 90 mi nutes in total. Eventual hemostasis was achieved without significant hematoma. Thrombin patch was applied to the right neck, and overlying sterile dressings were applied. The patient was stable upon the conclusion of the procedure. FINDINGS: 1. Patent and compressible right IJV accessed with continuous ultrasound guidance. 2. Placement of 6 Fr x 27 cm dual lumen tunneled righ t IJV small bore catheter. 3. Post-procedure intraprocedural chest radiogr aph showed catheter tip at the cavoatrial junction, no kinks along course of c atheter, and no pneumothorax. Catheter is ready for use. 4. Prolonged oozin g from the patient's venotomy and chest insertion site in this patient who was previously on dual antiplatelet therapy and Xarelto. Satisfactory hemostasis achieved with manual compression and sutures. IMPRESSION: Placement of r ight IJ tunneled single lumen small bore catheter. Catheter is ready for imme diate use. Prolonged oozing from the patient's venotomy and chest insertion site in this patient who was previously on dual antiplatelet therapy and Xare lto. Satisfactory hemostasis achieved with manual compression and sutures. Upo n further discussion with the patient, he was noted to have stopped his Aspiri n, Plavix, and Xarelto three days prior to the procedure. The patient also had a coronary stent placed approximately 2 weeks prior, and per the patient he stopped the blood thinners after consulting with referring physician Dr. Suhas Black prior to the IR procedure. This was not coordinated with the Cardiology team nor discussed with IR prior to the procedure. The interventional team was concerned about the patient being off his antiplatelet therapy with a freshly placed stent and contacted the patient's interventional Cardiology Dr. Hailee Mcguire, who recommended admission to cardiology to restart the patient's an tiplatelet therapy with close monitoring. Please refer to Cardiology notes sub sequently for further details. Dr. Suhsa Black was also contacted via telepho ne at the conclusion of the procedure to inform him of the above on 12/30/2018. Signed by: Dr. Jose Manuel Person MD on 01/01/2019 6:00 PM Dictated By: CHIKI PERSON MD 1800 Transcribed By: ERAN on 01/01/19 1800 COPY TO: SUHAS BLACK MD Bedside Ciifalj3783-98-46 11:04:00* Test Item Value Reference Range Interpretation Comments Bedside Glucose (test code = 59181-9) 105 70-120 Meter ID: [id number] [facility] Glucose 2018-12-30 11:04:00* Test Item Value Reference Range Interpretation Comments Bedside Glucose (test code = 82823-4) 105 70-120 Meter ID: [id number] [facility] Culture 2018-12-16 05:18:00* Test Item Value Reference Range Interpretation Comments Blood Culture (test code = 59057206) NO GROWTH AFTER 5 DAYS, FINAL REPORT [facility] Xbftwaa5334-73-25 05:18:00* Test Item Value Reference Range Interpretation Comments Blood Culture (test code = 01459905) NO GROWTH AFTER 5 DAYS, FINAL REPORT [facility] Rkrpwvi9293-29-30 11:33:00* Test Item Value Reference Range Interpretation Comments Bedside Glucose (test code = 28327-0) 178 70-120 H Meter ID: [id number] BrownsvilleB-Type Natriuretic Ysvxbow5832-27-16 17:13:00* Test Item Value Reference Range Interpretation Comments B-Type Natriuretic Peptide (test code = 12682-8) 103.7 0-100 H [facility] SouthB-Type Natriuretic Whllhqw7728-99-74 17:13:00* Test Item Value Reference Range Interpretation Comments B-Type Natriuretic Peptide (test code = 93500-0) 103.7 0-100 H [facility] Southodium Klsls4713-47-18 06:24:00* Test Item Value Reference Range Interpretation Comments Sodium Level (test code = 2951-2) 140 136-145 [facility] SouthPotassium Jrvpe9460-21-15 06:24:00* Test Item Value Reference Range Interpretation Comments Potassium Level (test code = 2823-3) 4.3 3.5-5.1 [facility] SouthChloride Nwose1882-60-14 06:24:00* Test Item Value Reference Range Interpretation Comments Chloride Level (test code = 2075-0) 90 98-107 L [facility] SouthCarbon Dioxide Rgspi7095-29-59 06:24:00* Test Item Value Reference Range Interpretation Comments Carbon Dioxide Level (test code = 2028-9) 39 22-29 H [facility] SouthAnion Qwu9227-07-29 06:24:00* Test Item Value Reference Range Interpretation Comments Anion Gap (test code = 65461-7) 15.3 8-16 [facility] SouthBlood Urea Nqlcmque6999-65-57 06:24:00* Test Item Value Reference Range Interpretation Comments Blood Urea Nitrogen (test code = 3094-0) 34 7-26 H [facility] SouthCreatinine2019-02-18 06:24:00* Test Item Value Reference Range Interpretation Comments Creatinine (test code = 2160-0) 1.60 0.72-1.25 H [facility] SouthBUN/Creatinine Sgvrt9180-52-83 06:24:00* Test Item Value Reference Range Interpretation Comments BUN/Creatinine Ratio (test code = 3097-3) 21 6-25 [facility] SouthEstimat Glomerular Filtration Rate 2018-12-14 06:24:00* Test Item Value Reference Range Interpretation Comments Estimat Glomerular Filtration Rate (test code = 827666065) 42 >60 L Ranges were taken from the National Kidney Disease Education Program and the [place] [facility] [employer] literature.Reference ranges:60 or greater: Dlnpvw13-10 ( for 3 consecutive months): Chronic kidney disease 15 or less: Kidney failureCHRISTUS Spohn Hospital Corpus Christi – SouthGlucose Mzsoo6596-30-11 06:24:00* Test Item Value Reference Range Interpretation Comments Glucose Level (test code = BFN0166) 150 74-118 H [facility] SouthCalcium Agmoy0170-25-40 06:24:00* Test Item Value Reference Range Interpretation Comments Calcium Level (test code = 31394-5) 9.3 8.4-10.2 [facility] Southodium Nwoka3205-39-76 06:24:00* Test Item Value Reference Range Interpretation Comments Sodium Level (test code = 2951-2) 140 136-145 [facility] SouthPotassium Vuvvn0500-79-09 06:24:00* Test Item Value Reference Range Interpretation Comments Potassium Level (test code = 2823-3) 4.3 3.5-5.1 [facility] SouthChloride Pjdcx0734-83-57 06:24:00* Test Item Value Reference Range Interpretation Comments Chloride Level (test code = 2075-0) 90 98-107 L [facility] SouthCarbon Dioxide Lahtp2930-39-34 06:24:00* Test Item Value Reference Range Interpretation Comments Carbon Dioxide Level (test code = 2028-9) 39 22-29 H [facility] SouthAnion Sau9860-92-02 06:24:00* Test Item Value Reference Range Interpretation Comments Anion Gap (test code = 23809-8) 15.3 8-16 [facility] SouthBlood Urea Wjbsozam9056-06-96 06:24:00* Test Item Value Reference Range Interpretation Comments Blood Urea Nitrogen (test code = 3094-0) 34 7-26 H [facility] SouthCreatinine2019-02-18 06:24:00* Test Item Value Reference Range Interpretation Comments Creatinine (test code = 2160-0) 1.60 0.72-1.25 H [facility] SouthBUN/Creatinine Cqeew6009-53-17 06:24:00* Test Item Value Reference Range Interpretation Comments BUN/Creatinine Ratio (test code = 3097-3) 21 6-25 [facility] SouthEstimat Glomerular Filtration Rate 2018-12-14 06:24:00* Test Item Value Reference Range Interpretation Comments Estimat Glomerular Filtration Rate (test code = 482361669) 42 >60 L Ranges were taken from the National Kidney Disease Education Program and the [place] [employer] literature.Reference ranges:60 or greater: Cwtffx89-29 ( for 3 consecutive months): Chronic kidney disease 15 or less: Kidney failureCHRISTUS Spohn Hospital Corpus Christi – SouthGlucose Mhrau3503-36-52 06:24:00* Test Item Value Reference Range Interpretation Comments Glucose Level (test code = FMY3050) 150 74-118 H [facility] SouthCalcium Olcbs8898-94-71 06:24:00* Test Item Value Reference Range Interpretation Comments Calcium Level (test code = 35643-8) 9.3 8.4-10.2 [facility] SouthBlood Jzgjwtx6920-37-23 05:18:00* Test Item Value Reference Range Interpretation Comments Blood Culture (test code = 01082161) NO GROWTH AFTER 72 HOURS [facility] SouthTotal Mxlzzlzmw0039-27-46 05:32:00* Test Item Value Reference Range Interpretation Comments Total Bilirubin (test code = 1975-2) 0.7 0.2-1.2 [facility] SouthAspartate Amino Transf (AST/SGOT) 2018-12-13 05:32:00* Test Item Value Reference Range Interpretation Comments Aspartate Amino Transf (AST/SGOT) (test code = Aspartate Amino Transf (AST/SGOT)) 13 5-34 [facility] SouthAlanine Aminotransferase (ALT/SGPT) 2018-12-13 05:32:00* Test Item Value Reference Range Interpretation Comments Alanine Aminotransferase (ALT/SGPT) (test code = 1742-6) 25 0-55 [facility] SouthTotal Rxrdcll3960-86-69 05:32:00* Test Item Value Reference Range Interpretation Comments Total Protein (test code = 2885-2) 6.0 6.5-8.1 L [facility] SouthAlbumin2019-02-17 05:32:00* Test Item Value Reference Range Interpretation Comments Albumin (test code = 1751-7) 3.5 3.5-5.0 [facility] SouthGlobulin2019-02-17 05:32:00* Test Item Value Reference Range Interpretation Comments Globulin (test code = 72588-9) 2.5 2.3-3.5 [facility] SouthAlbumin/Globulin Ubihf7818-33-17 05:32:00 * Test Item Value Reference Range Interpretation Comments Albumin/Globulin Ratio (test code = 1759-0) 1.4 0.8-2.0 [facility] SouthAlkaline Vzvohfwzfot2533-15-62 05:32:00* Test Item Value Reference Range Interpretation Comments Alkaline Phosphatase (test code = 6768-6) 69 40-150 [facility] SouthTotal Zwcyftggz6022-56-77 05:32:00* Test Item Value Reference Range Interpretation Comments Total Bilirubin (test code = 1975-2) 0.7 0.2-1.2 [facility] SouthAspartate Amino Transf (AST/SGOT) 2018-12-13 05:32:00* Test Item Value Reference Range Interpretation Comments Aspartate Amino Transf (AST/SGOT) (test code = Aspartate Amino Transf (AST/SGOT)) 13 5-34 [facility] SouthAlanine Aminotransferase (ALT/SGPT) 2018-12-13 05:32:00* Test Item Value Reference Range Interpretation Comments Alanine Aminotransferase (ALT/SGPT) (test code = 1742-6) 25 0-55 [facility] Lypstgw0647-39-40 05:32:00* Test Item Value Reference Range Interpretation Comments Total Protein (test code = 2885-2) 6.0 6.5-8.1 L [facility] SouthAlbumin2019-02-17 05:32:00* Test Item Value Reference Range Interpretation Comments Albumin (test code = 1751-7) 3.5 3.5-5.0 [facility] SouthGlobulin2019-02-17 05:32:00* Test Item Value Reference Range Interpretation Comments Globulin (test code = 10338-1) 2.5 2.3-3.5 [facility] SouthAlbumin/Globulin Xhpua1573-29-70 05:32:00 * Test Item Value Reference Range Interpretation Comments Albumin/Globulin Ratio (test code = 1759-0) 1.4 0.8-2.0 [facility] SouthAlkaline Snybcopfomf9963-55-89 05:32:00* Test Item Value Reference Range Interpretation Comments Alkaline Phosphatase (test code = 6768-6) 69 40-150 [facility] SouthWhite Blood Zknxt0240-17-83 05:08:00* Test Item Value Reference Range Interpretation Comments White Blood Count (test code = 6690-2) 8.82 4.8-10.8 [facility] SouthRed Blood Dtdfp5438-55-01 05:08:00* Test Item Value Reference Range Interpretation Comments Red Blood Count (test code = 789-8) 6.47 4.3-5.7 H [facility] SouthHemoglobin2019-02-17 05:08:00* Test Item Value Reference Range Interpretation Comments Hemoglobin (test code = 37351-7) 16.8 14.0-18.0 [facility] SouthHematocrit2019-02-17 05:08:00* Test Item Value Reference Range Interpretation Comments Hematocrit (test code = 4544-3) 55.2 38.2-49.6 H [facility] SouthMean Corpuscular Mhcqtd2713-29-86 05:08:00* Test Item Value Reference Range Interpretation Comments Mean Corpuscular Volume (test code = 787-2) 85.3 81-99 [facility] SouthMean Corpuscular Mxvdcudjwh9822-27-90 05:08:00* Test Item Value Reference Range Interpretation Comments Mean Corpuscular Hemoglobin (test code = 785-6) 26.0 28-32 L [facility] SouthMean Corpuscular Hemoglobin Concent 2018-12-13 05:08:00* Test Item Value Reference Range Interpretation Comments Mean Corpuscular Hemoglobin Concent (test code = 786-4) 30.4 31-35 L [facility] SouthRed Cell Distribution Xgjed9569-25-09 05:08:00* Test Item Value Reference Range Interpretation Comments Red Cell Distribution Width (test code = 92865-5) 19.9 11.7 -14.4 H [facility] SouthPlatelet Hewuv5186-98-00 05:08:00* Test Item Value Reference Range Interpretation Comments Platelet Count (test code = 777-3) 198 140-360 [facility] SouthNeutrophils (%) (Auto)2018-12-13 05:08:00 * Test Item Value Reference Range Interpretation Comments Neutrophils (%) (Auto) (test code = 89026-3) 82.4 38.7-80.0 H [facility] SouthLymphocytes (%) (Auto)2018-12-13 05:08:00 * Test Item Value Reference Range Interpretation Comments Lymphocytes (%) (Auto) (test code = 736-9) 12.1 18.0-39.1 L [facility] SouthMonocytes (%) (Auto)2018-12-13 05:08:00* Test Item Value Reference Range Interpretation Comments Monocytes (%) (Auto) (test code = 5905-5) 4.9 4.4-11.3 [facility] SouthEosinophils (%) (Auto)2018-12-13 05:08:00 * Test Item Value Reference Range Interpretation Comments Eosinophils (%) (Auto) (test code = 713-8) 0.0 0.0-6.0 [facility] SouthBasophils (%) (Auto)2018-12-13 05:08:00* Test Item Value Reference Range Interpretation Comments Basophils (%) (Auto) (test code = 706-2) 0.1 0.0-1.0 [facility] SouthIM GRANULOCYTES %2018-12-13 05:08:00* Test Item Value Reference Range Interpretation Comments IM GRANULOCYTES % (test code = IM GRANULOCYTES %) 0.5 0.0- 1.0 [facility] SouthNeutrophils # (Auto)2018-12-13 05:08:00* Test Item Value Reference Range Interpretation Comments Neutrophils # (Auto) (test code = 751-8) 7.3 2.1-6.9 H [facility] SouthLymphocytes # (Auto)2018-12-13 05:08:00* Test Item Value Reference Range Interpretation Comments Lymphocytes # (Auto) (test code = 10661-1) 1.1 1.0-3.2 [facility] SouthMonocytes # (Auto)2018-12-13 05:08:00* Test Item Value Reference Range Interpretation Comments Monocytes # (Auto) (test code = 742-7) 0.4 0.2-0.8 [facility] SouthEosinophils # (Auto)2018-12-13 05:08:00* Test Item Value Reference Range Interpretation Comments Eosinophils # (Auto) (test code = 711-2) 0.0 0.0-0.4 [facility] SouthBasophils # (Auto)2018-12-13 05:08:00* Test Item Value Reference Range Interpretation Comments Basophils # (Auto) (test code = 704-7) 0.0 0.0-0.1 [facility] SouthAbsolute Immature Granulocyte (auto 2018-12-13 05:08:00* Test Item Value Reference Range Interpretation Comments Absolute Immature Granulocyte (auto (bharat t code = Absolute Immature Granulocyte (auto) 0.04 0-0.1 [facility] SouthWhite Blood Jirmd3728-17-87 05:08:00* Test Item Value Reference Range Interpretation Comments White Blood Count (test code = 6690-2) 8.82 4.8-10.8 [facility] SouthRed Blood Upoyr6082-71-70 05:08:00* Test Item Value Reference Range Interpretation Comments Red Blood Count (test code = 789-8) 6.47 4.3-5.7 [facility] 05:08:00* Test Item Value Reference Range Interpretation Comments Hemoglobin (test code = 38071-4) 16.8 14.0-18.0 [facility]ematocrit2019-02-17 05:08:00* Test Item Value Reference Range Interpretation Comments Hematocrit (test code = 4544-3) 55.2 38.2-49.6 H [facility]Mean Corpuscular Scmsxk8218-03-43 05:08:00* Test Item Value Reference Range Interpretation Comments Mean Corpuscular Volume (test code = 787-2) 85.3 81-99 [facility] Corpuscular Rmfxkqmefp5021-98-29 05:08:00* Test Item Value Reference Range Interpretation Comments Mean Corpuscular Hemoglobin (test code = 785-6) 26.0 28-32 L [facility] Corpuscular Hemoglobin Concent 2018-12-13 05:08:00* Test Item Value Reference Range Interpretation Comments Mean Corpuscular Hemoglobin Concent (test code = 786-4) 30.4 31-35 L [facility] SouthRed Cell Distribution Lmtse5298-01-49 05:08:00* Test Item Value Reference Range Interpretation Comments Red Cell Distribution Width (test code = 92023-5) 19.9 11.7 -14.4 [facility] SouthPlatelet Qrfjp3735-92-81 05:08:00* Test Item Value Reference Range Interpretation Comments Platelet Count (test code = 777-3) 198 140-360 [facility] SouthNeutrophils (%) (Auto)2018-12-13 05:08:00 * Test Item Value Reference Range Interpretation Comments Neutrophils (%) (Auto) (test code = 00419-8) 82.4 38.7-80.0 [facility] SouthLymphocytes (%) (Auto)2018-12-13 05:08:00 * Test Item Value Reference Range Interpretation Comments Lymphocytes (%) (Auto) (test code = 736-9) 12.1 18.0-39.1 L [facility]Monocytes (%) (Auto)2018-12-13 05:08:00* Test Item Value Reference Range Interpretation Comments Monocytes (%) (Auto) (test code = 5905-5) 4.9 4.4-11.3 [facility]Eosinophils (%) (Auto)2018-12-13 05:08:00 * Test Item Value Reference Range Interpretation Comments Eosinophils (%) (Auto) (test code = 713-8) 0.0 0.0-6.0 [facility]ophils (%) (Auto)2018-12-13 05:08:00* Test Item Value Reference Range Interpretation Comments Basophils (%) (Auto) (test code = 706-2) 0.1 0.0-1.0 [facility]IM GRANULOCYTES %2018-12-13 05:08:00* Test Item Value Reference Range Interpretation Comments IM GRANULOCYTES % (test code = IM GRANULOCYTES %) 0.5 0.0- 1.0 [facility]Neutrophils # (Auto)2018-12-13 05:08:00* Test Item Value Reference Range Interpretation Comments Neutrophils # (Auto) (test code = 751-8) 7.3 2.1-6.9 H [facility] SouthLymphocytes # (Auto)2018-12-13 05:08:00* Test Item Value Reference Range Interpretation Comments Lymphocytes # (Auto) (test code = 26741-9) 1.1 1.0-3.2 [facility]ocytes # (Auto)2018-12-13 05:08:00* Test Item Value Reference Range Interpretation Comments Monocytes # (Auto) (test code = 742-7) 0.4 0.2-0.8 [facility]Eosinophils # (Auto)2018-12-13 05:08:00* Test Item Value Reference Range Interpretation Comments Eosinophils # (Auto) (test code = 711-2) 0.0 0.0-0.4 [facility]ophils # (Auto)2018-12-13 05:08:00* Test Item Value Reference Range Interpretation Comments Basophils # (Auto) (test code = 704-7) 0.0 0.0-0.1 [facility] SouthAbsolute Immature Granulocyte (auto 2018-12-13 05:08:00* Test Item Value Reference Range Interpretation Comments Absolute Immature Granulocyte (auto (bharat t code = Absolute Immature Granulocyte (auto) 0.04 0-0.1 [facility] SouthUrine Random Total Kmssfyf2454-66-74 15:37:00* Test Item Value Reference Range Interpretation Comments Urine Random Total Protein (test code = 2888-6) 20.3 1-14 H [facility] SouthUrine Qgmmlgsyvp0496-53-63 15:37:00* Test Item Value Reference Range Interpretation Comments Urine Creatinine (test code = 2161-8) 48.99 63-166 L [facility] SouthUrine Protein/Creatinine Xrkkt0899-53-45 15:37:00* Test Item Value Reference Range Interpretation Comments Urine Protein/Creatinine Ratio (test code = 07193-7) 0.41 [facility] Random Total Uebstfj7669-21-13 15:37:00* Test Item Value Reference Range Interpretation Comments Urine Random Total Protein (test code = 2888-6) 20.3 1-14 H [facility] SouthUrine Ublyelehfi8183-90-75 15:37:00* Test Item Value Reference Range Interpretation Comments Urine Creatinine (test code = 2161-8) 48.99 63-166 L [facility] Protein/Creatinine Gwuwt1617-28-03 15:37:00* Test Item Value Reference Range Interpretation Comments Urine Protein/Creatinine Ratio (test code = 84620-5) 0.41 [facility] Random Total Bjhyfqn2160-29-26 15:37:00* Test Item Value Reference Range Interpretation Comments Urine Random Total Protein (test code = 2888-6) 20.3 1-14 [facility] SouthUrine Qilchreklv5936-39-32 15:37:00* Test Item Value Reference Range Interpretation Comments Urine Creatinine (test code = 2161-8) 48.99 63-166 L [facility] Protein/Creatinine Uxygd5475-03-06 15:37:00* Test Item Value Reference Range Interpretation Comments Urine Protein/Creatinine Ratio (test code = 42474-9) 0.41 [facility] Random Total Zfzbfvs1105-19-18 15:37:00* Test Item Value Reference Range Interpretation Comments Urine Random Total Protein (test code = 2888-6) 20.3 1-14 H [facility] SouthUrine Zlumtvjdge4003-57-00 15:37:00* Test Item Value Reference Range Interpretation Comments Urine Creatinine (test code = 2161-8) 48.99 63-166 L [facility] Protein/Creatinine Nbpdn7902-18-92 15:37:00* Test Item Value Reference Range Interpretation Comments Urine Protein/Creatinine Ratio (test code = 96556-4) 0.41 [facility] Random Total Xjyqczm7276-93-78 15:37:00* Test Item Value Reference Range Interpretation Comments Urine Random Total Protein (test code = 2888-6) 20.3 1-14 H [facility] SouthUrine Fskppigkqc0283-82-55 15:37:00* Test Item Value Reference Range Interpretation Comments Urine Creatinine (test code = 2161-8) 48.99 63-166 L [facility] South[facility] Protein/Creatinine Sdrak2531-05-51 15:37:00* Test Item Value Reference Range Interpretation Comments Urine Protein/Creatinine Ratio (test code = 27818-4) 0.41 [facility] Random Total Dwmatai8395-01-23 15:37:00* Test Item Value Reference Range Interpretation Comments Urine Random Total Protein (test code = 2888-6) 20.3 1-14 [facility] Ptpzawrxyq6407-45-45 15:37:00* Test Item Value Reference Range Interpretation Comments Urine Creatinine (test code = 2161-8) 48.99 63-166 L [facility] Protein/Creatinine Unzyq1023-61-60 15:37:00* Test Item Value Reference Range Interpretation Comments Urine Protein/Creatinine Ratio (test code = 02770-0) 0.41 [facility] Random Total Xrvtpzd8961-64-27 15:37:00* Test Item Value Reference Range Interpretation Comments Urine Random Total Protein (test code = 2888-6) 20.3 1-14 H [facility] Flvuehlgnh8308-63-74 15:37:00* Test Item Value Reference Range Interpretation Comments Urine Creatinine (test code = 2161-8) 48.99 63-166 L [facility] Protein/Creatinine Dmmen0817-23-58 15:37:00* Test Item Value Reference Range Interpretation Comments Urine Protein/Creatinine Ratio (test code = 62534-9) 0.41 [facility] Random Total Emqjehb2406-05-66 15:37:00* Test Item Value Reference Range Interpretation Comments Urine Random Total Protein (test code = 2888-6) 20.3 1-14 [facility] Tfayctiuyu5420-10-43 15:37:00* Test Item Value Reference Range Interpretation Comments Urine Creatinine (test code = 2161-8) 48.99 63-166 L [facility] Protein/Creatinine Tilao8875-17-17 15:37:00* Test Item Value Reference Range Interpretation Comments Urine Protein/Creatinine Ratio (test code = 10204-6) 0.41 [facility] Random Total Btktamz1483-48-52 15:37:00* Test Item Value Reference Range Interpretation Comments Urine Random Total Protein (test code = 2888-6) 20.3 1-14 [facility] Wvyepfvjtx2451-02-52 15:37:00* Test Item Value Reference Range Interpretation Comments Urine Creatinine (test code = 2161-8) 48.99 63-166 L [facility] Protein/Creatinine Mdtto2457-89-47 15:37:00* Test Item Value Reference Range Interpretation Comments Urine Protein/Creatinine Ratio (test code = 47150-8) 0.41 [facility] Fshad5356-22-73 14:38:00* Test Item Value Reference Range Interpretation Comments Urine Color (test code = 5778-6) YELLOW YELLOW [facility] Wreaqfr4315-51-78 14:38:00* Test Item Value Reference Range Interpretation Comments Urine Clarity (test code = 90911-9) CLEAR CLEAR [facility] Specific Oiuvoat9243-15-48 14:38:00 * Test Item Value Reference Range Interpretation Comments Urine Specific [place] (test code = 5811-5) 1.010 1.010-1.02 5 [facility] rH9896-16-72 14:38:00* Test Item Value Reference Range Interpretation Comments Urine pH (test code = 52798-3) 7 5-7 [facility] Leukocyte Gomscjis4504-06-41 14:38:00* Test Item Value Reference Range Interpretation Comments Urine Leukocyte Esterase (test code = 5799-2) NEGATIVE NEGATIVE [facility] Vbqrkcb9995-74-34 14:38:00* Test Item Value Reference Range Interpretation Comments Urine Nitrite (test code = 00836-2) NEGATIVE NEGATIVE [facility] Yratlii3435-24-17 14:38:00* Test Item Value Reference Range Interpretation Comments Urine Protein (test code = 5804-0) TRACE NEGATIVE H [facility] Glucose (UA)2018-12-12 14:38:00* Test Item Value Reference Range Interpretation Comments Urine Glucose (UA) (test code = 2349-9) NEGATIVE NEGATIVE [facility] Jxxjaeg4243-98-15 14:38:00* Test Item Value Reference Range Interpretation Comments Urine Ketones (test code = 48365-2) NEGATIVE NEGATIVE [facility] Uliwexeipznh3198-29-20 14:38:00* Test Item Value Reference Range Interpretation Comments Urine Urobilinogen (test code = 87998-5) 0.2 0.2-1 [facility] Jcyfrzbhd3775-21-94 14:38:00* Test Item Value Reference Range Interpretation Comments Urine Bilirubin (test code = 1978-6) NEGATIVE NEGATIVE [facility] Eeumv3075-68-65 14:38:00* Test Item Value Reference Range Interpretation Comments Urine Blood (test code = 23466-5) NEGATIVE NEGATIVE [facility] ROG2083-78-52 14:38:00* Test Item Value Reference Range Interpretation Comments Urine WBC (test code = 5821-4) 0-5 0-5 [facility] IQD7444-67-61 14:38:00* Test Item Value Reference Range Interpretation Comments Urine RBC (test code = 90309-1) 0-5 0-5 [facility] Fadwheku8026-23-91 14:38:00* Test Item Value Reference Range Interpretation Comments Urine Bacteria (test code = 22979-7) NONE NONE [facility] Epithelial Jshzc6958-66-22 14:38:00 * Test Item Value Reference Range Interpretation Comments Urine Epithelial Cells (test code = 60943-8) FEW NONE [facility] Transitional Epithelial Cells 2018-12-12 14:38:00* Test Item Value Reference Range Interpretation Comments Urine Transitional Epithelial Cells (test code = 8249-5) FEW NONE [facility] Hyaline Rcuif9277-59-11 14:38:00* Test Item Value Reference Range Interpretation Comments Urine Hyaline Casts (test code = 98211-8) 6-10 0-1 H [facility] Fyitp8001-92-89 14:38:00* Test Item Value Reference Range Interpretation Comments Urine Color (test code = 5778-6) YELLOW YELLOW [facility] Jyxaviu3907-21-77 14:38:00* Test Item Value Reference Range Interpretation Comments Urine Clarity (test code = 31362-4) CLEAR CLEAR [facility] Specific Ezahnig8248-01-01 14:38:00 * Test Item Value Reference Range Interpretation Comments Urine Specific [place] (test code = 5811-5) 1.010 1.010-1.02 5 [facility] mE6327-77-29 14:38:00* Test Item Value Reference Range Interpretation Comments Urine pH (test code = 76616-2) 7 5-7 [facility] Leukocyte Zksoyjlg3793-16-47 14:38:00* Test Item Value Reference Range Interpretation Comments Urine Leukocyte Esterase (test code = 5799-2) NEGATIVE NEGATIVE [facility] Sonjonp2320-53-89 14:38:00* Test Item Value Reference Range Interpretation Comments Urine Nitrite (test code = 84917-6) NEGATIVE NEGATIVE [facility] Niwfwyr3537-12-40 14:38:00* Test Item Value Reference Range Interpretation Comments Urine Protein (test code = 5804-0) TRACE NEGATIVE H [facility] Glucose (UA)2018-12-12 14:38:00* Test Item Value Reference Range Interpretation Comments Urine Glucose (UA) (test code = 2349-9) NEGATIVE NEGATIVE [facility] Sgqedsb7451-17-54 14:38:00* Test Item Value Reference Range Interpretation Comments Urine Ketones (test code = 50222-5) NEGATIVE NEGATIVE [facility] Giefajnubbmk3368-45-90 14:38:00* Test Item Value Reference Range Interpretation Comments Urine Urobilinogen (test code = 56580-4) 0.2 0.2-1 [facility] Lrfdretoy6489-35-58 14:38:00* Test Item Value Reference Range Interpretation Comments Urine Bilirubin (test code = 1978-6) NEGATIVE NEGATIVE [facility] Plrfn0117-90-03 14:38:00* Test Item Value Reference Range Interpretation Comments Urine Blood (test code = 87052-2) NEGATIVE NEGATIVE [facility] PTR0768-24-70 14:38:00* Test Item Value Reference Range Interpretation Comments Urine WBC (test code = 5821-4) 0-5 0-5 [facility] STJ1270-54-10 14:38:00* Test Item Value Reference Range Interpretation Comments Urine RBC (test code = 30833-3) 0-5 0-5 [facility] Lueafkhm1479-14-69 14:38:00* Test Item Value Reference Range Interpretation Comments Urine Bacteria (test code = 54117-5) NONE NONE [facility] Epithelial Mzojz5384-67-44 14:38:00 * Test Item Value Reference Range Interpretation Comments Urine Epithelial Cells (test code = 80948-1) FEW NONE [facility] Transitional Epithelial Cells 2018-12-12 14:38:00* Test Item Value Reference Range Interpretation Comments Urine Transitional Epithelial Cells (test code = 8249-5) FEW NONE [facility] Hyaline Carlq3205-49-55 14:38:00* Test Item Value Reference Range Interpretation Comments Urine Hyaline Casts (test code = 44407-1) 6-10 0-1 H [facility] Eshyg2762-05-25 14:38:00* Test Item Value Reference Range Interpretation Comments Urine Color (test code = 5778-6) YELLOW YELLOW [facility] Sywpdss7188-02-25 14:38:00* Test Item Value Reference Range Interpretation Comments Urine Clarity (test code = 27570-4) CLEAR CLEAR [facility] Specific Tujiygd3798-34-95 14:38:00 * Test Item Value Reference Range Interpretation Comments Urine Specific [place] (test code = 5811-5) 1.010 1.010-1.02 5 [facility] qO0591-65-81 14:38:00* Test Item Value Reference Range Interpretation Comments Urine pH (test code = 93305-6) 7 5-7 [facility] Leukocyte Crpdopjg7300-06-61 14:38:00* Test Item Value Reference Range Interpretation Comments Urine Leukocyte Esterase (test code = 5799-2) NEGATIVE NEGATIVE [facility] Bxuxztv9373-41-78 14:38:00* Test Item Value Reference Range Interpretation Comments Urine Nitrite (test code = 57110-8) NEGATIVE NEGATIVE [facility] Iztfntx3194-75-59 14:38:00* Test Item Value Reference Range Interpretation Comments Urine Protein (test code = 5804-0) TRACE NEGATIVE H [facility] Glucose (UA)2018-12-12 14:38:00* Test Item Value Reference Range Interpretation Comments Urine Glucose (UA) (test code = 2349-9) NEGATIVE NEGATIVE [facility] Jrqagul2474-91-39 14:38:00* Test Item Value Reference Range Interpretation Comments Urine Ketones (test code = 52424-6) NEGATIVE NEGATIVE [facility] Jgnopuzndqjn2768-81-84 14:38:00* Test Item Value Reference Range Interpretation Comments Urine Urobilinogen (test code = 85412-1) 0.2 0.2-1 [facility] Qdbquihzr8557-37-99 14:38:00* Test Item Value Reference Range Interpretation Comments Urine Bilirubin (test code = 1978-6) NEGATIVE NEGATIVE [facility] Prowe6277-72-46 14:38:00* Test Item Value Reference Range Interpretation Comments Urine Blood (test code = 91987-0) NEGATIVE NEGATIVE [facility] BBM8425-94-81 14:38:00* Test Item Value Reference Range Interpretation Comments Urine WBC (test code = 5821-4) 0-5 0-5 [facility] WHI9084-71-41 14:38:00* Test Item Value Reference Range Interpretation Comments Urine RBC (test code = 80522-0) 0-5 0-5 [facility] Nozfqwiv7442-44-31 14:38:00* Test Item Value Reference Range Interpretation Comments Urine Bacteria (test code = 64151-5) NONE NONE [facility] Epithelial Kkxhj7200-31-46 14:38:00 * Test Item Value Reference Range Interpretation Comments Urine Epithelial Cells (test code = 12650-3) FEW NONE [facility] Transitional Epithelial Cells 2018-12-12 14:38:00* Test Item Value Reference Range Interpretation Comments Urine Transitional Epithelial Cells (test code = 8249-5) FEW NONE [facility] Hyaline Bkysi5921-66-34 14:38:00* Test Item Value Reference Range Interpretation Comments Urine Hyaline Casts (test code = 04627-6) 6-10 0-1 H [facility] South[facility]ine Kinase [id number] 19:07:00* Test Item Value Reference Range Interpretation Comments Creatine Kinase MB (test code = 77964-4) 2.40 0-5.0 [facility] SouthTroponin [id number] 19:07:00* Test Item Value Reference Range Interpretation Comments Troponin I (test code = JVV5187) 0.033 0-0.300 [facility] South[facility] Kinase AP7754-52-72 19:07:00* Test Item Value Reference Range Interpretation Comments Creatine Kinase MB (test code = 15928-1) 2.40 0-5.0 [facility] SouthTroponin [id number] 19:07:00* Test Item Value Reference Range Interpretation Comments Troponin I (test code = [id number]) 0.033 0-0.300 [facility] South[facility]ine Wmefnh7901-12-61 18:59:00* Test Item Value Reference Range Interpretation Comments Creatine Kinase (test code = 2157-6) 59 30-200 [facility] Eanwvu3871-34-88 18:59:00* Test Item Value Reference Range Interpretation Comments Creatine Kinase (test code = 2157-6) 59 30-200 [facility] South[facility]terial Blood pT4614-35-91 05:29:00* Test Item Value Reference Range Interpretation Comments Arterial Blood pH (test code = 2744-1) 7.37 7.31-7.41 [facility] Blood Partial Pressure CO2 2018-12-11 05:29:00* Test Item Value Reference Range Interpretation Comments Arterial Blood Partial Pressure CO2 (test code = 2018-8) 60 41-51 H [facility] Blood Partial Pressure O2 2018-12-11 05:29:00* Test Item Value Reference Range Interpretation Comments Arterial Blood Partial Pressure O2 (test code = 2018-8) 74 80-105 [facility] KZL73599-26-97 05:29:00* Test Item Value Reference Range Interpretation Comments Arterial Blood HCO3 (test code = 1960-4) 34 23-28 [facility] Base Pcnfwi2220-42-55 05:29:00* Test Item Value Reference Range Interpretation Comments Arterial Blood Base Excess (test code = 1925-7) 10.0 -2-3 H [facility] Blood Oxygen Saturation 2018-12-11 05:29:00* Test Item Value Reference Range Interpretation Comments Arterial Blood Oxygen Saturation (test code = 2708-6) 94.0 95-98 L [facility] SouthFiO22019-02-15 05:29:00* Test Item Value Reference Range Interpretation Comments FiO2 (test code = FiO2) 40 PT. ON BIPAP 40 [facility] gH2018-12-27 05:29:00* Test Item Value Reference Range Interpretation Comments Arterial Blood pH (test code = 2744-1) 7.37 7.31-7.41 [facility] Partial Pressure CO2 2018-12-11 05:29:00* Test Item Value Reference Range Interpretation Comments Arterial Blood Partial Pressure CO2 (test code = 2018-8) 60 41-51 H [facility] Blood Partial Pressure O2 2018-12-11 05:29:00* Test Item Value Reference Range Interpretation Comments Arterial Blood Partial Pressure O2 (test code = 8) 74 80-105 [facility] Blood GKX31400-63-74 05:29:00* Test Item Value Reference Range Interpretation Comments Arterial Blood HCO3 (test code = 1960-4) 34 23-28 H [facility] Blood Base Kpziuu3984-01-35 05:29:00* Test Item Value Reference Range Interpretation Comments Arterial Blood Base Excess (test code = 1925-7) 10.0 -2-3 H [facility] Blood Oxygen Saturation 2018-12-11 05:29:00* Test Item Value Reference Range Interpretation Comments Arterial Blood Oxygen Saturation (test code = 2708-6) 94.0 95-98 L [facility]FiO22019-02-15 05:29:00* Test Item Value Reference Range Interpretation Comments FiO2 (test code = FiO2) 40 PT. ON BIPAP 40 [facility] Blood [id number] 05:29:00* Test Item Value Reference Range Interpretation Comments Arterial Blood pH (test code = 2744-1) 7.37 7.31-7.41 [facility] Partial Pressure CO2 2018-12-11 05:29:00* Test Item Value Reference Range Interpretation Comments Arterial Blood Partial Pressure CO2 (test code = 2018-8) 60 41-51 [facility] Blood Partial Pressure O2 2018-12-11 05:29:00* Test Item Value Reference Range Interpretation Comments Arterial Blood Partial Pressure O2 (test code = 2018-8) 74 80-105 [facility] Blood [id number] 05:29:00* Test Item Value Reference Range Interpretation Comments Arterial Blood HCO3 (test code = 1960-4) 34 23-28 H [facility] SouthArterial Blood Base Saeamd6321-60-23 05:29:00* Test Item Value Reference Range Interpretation Comments Arterial Blood Base Excess (test code = 1925-7) 10.0 -2-3 H [facility] SouthArterial Blood Oxygen Saturation 2018-12-11 05:29:00* Test Item Value Reference Range Interpretation Comments Arterial Blood Oxygen Saturation (test code = 2708-6) 94.0 95-98 L [facility] SouthFiO22019-02-15 05:29:00* Test Item Value Reference Range Interpretation Comments FiO2 (test code = FiO2) 40 PT. ON BIPAP 40 REPORTED TO ER DOCTORCHRIST[facility] SouthCHES SINGLE (PORTABLE)2018-12-11 03:39:00 [place] [address] Patient Name: STEVE BENEDICT MR #: [id number] : 1945 Age/Sex: 73/M Req #: [id number] Adm Physician: Ordered by: RENAE SOLARES MD Report #: [id number] Location: ER Room/Bed: Procedure: [id number] D X/CHEST SINGLE (PORTABLE) Exam Date: 12/11/18 Exam T cheri: 0320 REPORT STATUS: Signed EXAMINATION: CHEST SINGLE (PORTABLE) INDICATION: SOB COMPARISON: Chest x-ray 09/14/2018 FINDINGS: AP view TUBES and LINES: N one. LUNGS: Lungs are well inflated. Near-complete resolution left lower l obe opacity with residual linear opacities. PLEURA: No pleural effusion or pneumothorax. HEART AND MEDIASTINUM: Stable mild cardiomegaly. BONES AND SOFT TISSUES: No acute osseous lesion. Old left-sided rib fractures. Lower cervical fusion hardware. Soft tissues are unremarkable. UPPER ABD OMEN: No free air under the diaphragm. IMPRESSION: Left lower lobe o pacities may represent scarring related to the previous pneumonia on 8. Developing pneumonia not excluded in the appropriate clinical setting. Signed by: DR. Zacarias Combs MD on 12/11/2018 3:47 AM Dictated By: AMANDA COMBS MD 6 Transc ribed By: ERAN on 12/11/18346 COPY TO: RENAE SOLARES MD Lactic Acid Zndjd2143-57-11 03:02:00* Test Item Value Reference Range Interpretation Comments Lactic Acid Level (test code = Lactic Acid Level) 15.9 4.5- 19.8 [facility] SouthLactic Acid Forpg2841-33-15 03:02:00* Test Item Value Reference Range Interpretation Comments Lactic Acid Level (test code = Lactic Acid Level) 15.9 4.5- 19.8 [facility] SouthProthrombin Waug4220-95-43 03:01:00* Test Item Value Reference Range Interpretation Comments Prothrombin Time (test code = 5902-2) 18.4 11.9-14.5 H [facility] SouthProthromb Time International Ratio 2018-12-11 03:01:00* Test Item Value Reference Range Interpretation Comments Prothromb Time International Ratio (test code = 6301-6) 1.41 Oral Anticoagulant Therapy INR Values:1. Low Intensity Therapy 1.5 - 2.02 . Moderate Intensity Therapy 2.0 - 3.03. High Intensity Therapy(1) 2.5 - 3. 54. High Intensity Therapy(2) 3.0 - 4.05. Panic Value INR > 5.0 [facility] SouthActivated Partial Thromboplast Time 2018-12-11 03:01:00* Test Item Value Reference Range Interpretation Comments Activated Partial Thromboplast Time (test code = 27509-6) 38.4 23.8-35.5 H [facility] SouthProthrombin Vgtb2579-02-74 03:01:00* Test Item Value Reference Range Interpretation Comments Prothrombin Time (test code = 5902-2) 18.4 11.9-14.5 H [facility] SouthProthromb Time International Ratio 2018-12-11 03:01:00* Test Item Value Reference Range Interpretation Comments Prothromb Time International Ratio (test code = 6301-6) 1.41 Oral Anticoagulant Therapy INR Values:1. Low Intensity Therapy 1.5 - 2.02 . Moderate Intensity Therapy 2.0 - 3.03. High Intensity Therapy(1) 2.5 - 3. 54. High Intensity Therapy(2) 3.0 - 4.05. Panic Value INR > 5.0 [facility] SouthActivated Partial Thromboplast Time 2018-12-11 03:01:00* Test Item Value Reference Range Interpretation Comments Activated Partial Thromboplast Time (test code = 53107-6) 38.4 23.8-35.5 H [facility] SouthBedside Dtuxqlv5996-41-75 12:16:00* Test Item Value Reference Range Interpretation Comments Bedside Glucose (test code = 83922-8) 136 70-120 H Meter ID: [id number] [facility] Southodium Level 2018-11-07 05:04:00* Test Item Value Reference Range Interpretation Comments Sodium Level (test code = 2951-2) 141 136-145 [facility] SouthPotassium Ldpst8421-60-14 05:04:00* Test Item Value Reference Range Interpretation Comments Potassium Level (test code = 2823-3) 4.3 3.5-5.1 [facility] SouthChloride Pqoff6559-12-72 05:04:00* Test Item Value Reference Range Interpretation Comments Chloride Level (test code = 2075-0) 98 98-107 [facility] SouthCarbon Dioxide Dmoae0952-30-96 05:04:00* Test Item Value Reference Range Interpretation Comments Carbon Dioxide Level (test code = 2028-9) 34 22-29 H [facility] SouthAnion Zdu0278-65-02 05:04:00* Test Item Value Reference Range Interpretation Comments Anion Gap (test code = 85963-3) 13.3 8-16 [facility] SouthBlood Urea Ztbawfxs1702-85-63 05:04:00* Test Item Value Reference Range Interpretation Comments Blood Urea Nitrogen (test code = 3094-0) 31 7-26 H [facility] SouthCreatinine2019-01-12 05:04:00* Test Item Value Reference Range Interpretation Comments Creatinine (test code = 2160-0) 1.67 0.72-1.25 H [facility] SouthBUN/Creatinine Iucrb2372-69-02 05:04:00* Test Item Value Reference Range Interpretation Comments BUN/Creatinine Ratio (test code = 3097-3) 19 6-25 [facility] SouthEstimat Glomerular Filtration Rate 2018-11-07 05:04:00* Test Item Value Reference Range Interpretation Comments Estimat Glomerular Filtration Rate (test code = 866889882) 40 >60 L Ranges were taken from the National Kidney Disease Education Program and the [facility] literature.Reference ranges:60 or greater: Sbzxtl52-25 ( for 3 consecutive months): Chronic kidney disease 15 or less: Kidney failureCHRISTUS Spohn Hospital [facility] Christi – SouthGlucose Vrzxl2929-85-15 05:04:00* Test Item Value Reference Range Interpretation Comments Glucose Level (test code = HGB4667) 114 74-118 [facility] SouthCalcium Dnvkg8154-30-79 05:04:00* Test Item Value Reference Range Interpretation Comments Calcium Level (test code = 82011-1) 9.2 8.4-10.2 [facility] SouthWhite Blood Bccyo7636-17-04 04:35:00* Test Item Value Reference Range Interpretation Comments White Blood Count (test code = 6690-2) 10.57 4.8-10.8 [facility] SouthRed Blood Ffaol6447-12-81 04:35:00* Test Item Value Reference Range Interpretation Comments Red Blood Count (test code = 789-8) 6.36 4.3-5.7 H [facility] SouthHemoglobin2019-01-12 04:35:00* Test Item Value Reference Range Interpretation Comments Hemoglobin (test code = 06863-0) 15.7 14.0-18.0 [facility] SouthHematocrit2019-01-12 04:35:00* Test Item Value Reference Range Interpretation Comments Hematocrit (test code = 4544-3) 53.4 38.2-49.6 H [facility] SouthMean Corpuscular Jlctyl0889-40-28 04:35:00* Test Item Value Reference Range Interpretation Comments Mean Corpuscular Volume (test code = 787-2) 84.0 81-99 [facility] SouthMean Corpuscular Lwhpkybuxo0220-59-49 04:35:00* Test Item Value Reference Range Interpretation Comments Mean Corpuscular Hemoglobin (test code = 785-6) 24.7 28-32 L [facility] SouthMean Corpuscular Hemoglobin Concent 2018-11-07 04:35:00* Test Item Value Reference Range Interpretation Comments Mean Corpuscular Hemoglobin Concent (test code = 786-4) 29.4 31-35 L [facility] SouthRed Cell Distribution Smrnd8305-56-45 04:35:00* Test Item Value Reference Range Interpretation Comments Red Cell Distribution Width (test code = 15014-7) 20.8 11.7 -14.4 H [facility] SouthPlatelet Qccal0176-63-89 04:35:00* Test Item Value Reference Range Interpretation Comments Platelet Count (test code = 777-3) 202 140-360 [facility] SouthNeutrophils (%) (Auto)2018-11-07 04:35:00 * Test Item Value Reference Range Interpretation Comments Neutrophils (%) (Auto) (test code = 88262-7) 72.4 38.7-80.0 [facility] SouthLymphocytes (%) (Auto)2018-11-07 04:35:00 * Test Item Value Reference Range Interpretation Comments Lymphocytes (%) (Auto) (test code = 736-9) 14.7 18.0-39.1 L [facility] SouthMonocytes (%) (Auto)2018-11-07 04:35:00* Test Item Value Reference Range Interpretation Comments Monocytes (%) (Auto) (test code = 5905-5) 11.4 4.4-11.3 H [facility] SouthEosinophils (%) (Auto)2018-11-07 04:35:00 * Test Item Value Reference Range Interpretation Comments Eosinophils (%) (Auto) (test code = 713-8) 0.5 0.0-6.0 [facility] SouthBasophils (%) (Auto)2018-11-07 04:35:00* Test Item Value Reference Range Interpretation Comments Basophils (%) (Auto) (test code = 706-2) 0.6 0.0-1.0 [facility] SouthIM GRANULOCYTES %2018-11-07 04:35:00* Test Item Value Reference Range Interpretation Comments IM GRANULOCYTES % (test code = IM GRANULOCYTES %) 0.4 0.0- 1.0 [facility] SouthNeutrophils # (Auto)2018-11-07 04:35:00* Test Item Value Reference Range Interpretation Comments Neutrophils # (Auto) (test code = 751-8) 7.7 2.1-6.9 H [facility] SouthLymphocytes # (Auto)2018-11-07 04:35:00* Test Item Value Reference Range Interpretation Comments Lymphocytes # (Auto) (test code = 16209-1) 1.6 1.0-3.2 [facility] SouthMonocytes # (Auto)2018-11-07 04:35:00* Test Item Value Reference Range Interpretation Comments Monocytes # (Auto) (test code = 742-7) 1.2 0.2-0.8 H [facility] SouthEosinophils # (Auto)2018-11-07 04:35:00* Test Item Value Reference Range Interpretation Comments Eosinophils # (Auto) (test code = 711-2) 0.1 0.0-0.4 [facility] SouthBasophils # (Auto)2018-11-07 04:35:00* Test Item Value Reference Range Interpretation Comments Basophils # (Auto) (test code = 704-7) 0.1 0.0-0.1 [facility] SouthAbsolute Immature Granulocyte (auto 2018-11-07 04:35:00* Test Item Value Reference Range Interpretation Comments Absolute Immature Granulocyte (auto (bharat t code = Absolute Immature Granulocyte (auto) 0.04 0-0.1 [facility] SouthTotal Nlkfqrlbw6988-97-12 12:54:00* Test Item Value Reference Range Interpretation Comments Total Bilirubin (test code = 1975-2) 0.5 0.2-1.2 [facility] SouthAspartate Amino Transf (AST/SGOT) 2018-11-05 12:54:00* Test Item Value Reference Range Interpretation Comments Aspartate Amino Transf (AST/SGOT) (test code = Aspartate Amino Transf (AST/SGOT)) 19 5-34 [facility] SouthAlanine Aminotransferase (ALT/SGPT) 2018-11-05 12:54:00* Test Item Value Reference Range Interpretation Comments Alanine Aminotransferase (ALT/SGPT) (test code = 1742-6) 20 0-55 [facility] SouthTotal Ajoqrcc7381-14-62 12:54:00* Test Item Value Reference Range Interpretation Comments Total Protein (test code = 2885-2) 6.8 6.5-8.1 [facility] SouthAlbumin2019-01-10 12:54:00* Test Item Value Reference Range Interpretation Comments Albumin (test code = 1751-7) 4.0 3.5-5.0 [facility] SouthGlobulin2019-01-10 12:54:00* Test Item Value Reference Range Interpretation Comments Globulin (test code = 22316-4) 2.8 2.3-3.5 [facility] SouthAlbumin/Globulin Bofrw4120-75-50 12:54:00 * Test Item Value Reference Range Interpretation Comments Albumin/Globulin Ratio (test code = 1759-0) 1.4 0.8-2.0 [facility] SouthAlkaline Kjfqolrrwdc3703-93-02 12:54:00* Test Item Value Reference Range Interpretation Comments Alkaline Phosphatase (test code = 6768-6) 87 40-150 [facility] SouthProthrombin Ilyd0498-97-83 12:42:00* Test Item Value Reference Range Interpretation Comments Prothrombin Time (test code = 5902-2) 13.7 11.9-14.5 [facility] SouthProthromb Time International Ratio 2018-11-05 12:42:00* Test Item Value Reference Range Interpretation Comments Prothromb Time International Ratio (test code = 6301-6) 0.96 Oral Anticoagulant Therapy INR Values:1. Low Intensity Therapy 1.5 - 2.02 . Moderate Intensity Therapy 2.0 - 3.03. High Intensity Therapy(1) 2.5 - 3. 54. High Intensity Therapy(2) 3.0 - 4.05. Panic Value INR > 5.0 [facility]ptownood Ppzcxaf3758-21-36 18:31:00* Test Item Value Reference Range Interpretation Comments Blood Culture (test code = 46935828) NO GROWTH AFTER 5 DAYS, FINAL REPORT [facility] Kvsiixq8173-93-56 13:27:00* Test Item Value Reference Range Interpretation Comments Urine Culture (test code = 630-4) Organism: ESCHERICHIA COLI-ESBL [facility] Ezzyuzc2578-29-82 13:27:00* Test Item Value Reference Range Interpretation Comments Urine Culture (test code = 630-4) Organism: ESCHERICHIA COLI-ESBL [facility] Ojnjcdd1882-41-78 13:27:00* Test Item Value Reference Range Interpretation Comments Urine Culture (test code = 630-4) Organism: ESCHERICHIA COLI-ESBL [facility] Yhehrmi9016-30-19 13:27:00* Test Item Value Reference Range Interpretation Comments Urine Culture (test code = 630-4) Organism: ESCHERICHIA COLI-ESBL [facility] Southodium Mnlwf3750-95-52 09:35:00* Test Item Value Reference Range Interpretation Comments Sodium Level (test code = 2951-2) 138 136-145 [facility] SouthPotassium Mejdy1557-60-47 09:35:00* Test Item Value Reference Range Interpretation Comments Potassium Level (test code = 2823-3) 3.8 3.5-5.1 [facility] SouthChloride Lqnnz5149-11-39 09:35:00* Test Item Value Reference Range Interpretation Comments Chloride Level (test code = 2075-0) 93 98-107 L [facility] SouthCarbon Dioxide Pofzi2565-66-97 09:35:00* Test Item Value Reference Range Interpretation Comments Carbon Dioxide Level (test code = 2028-9) 36 22-29 H [facility] SouthAnion Skh4783-91-29 09:35:00* Test Item Value Reference Range Interpretation Comments Anion Gap (test code = 34327-1) 12.8 8-16 [facility] SouthBlood Urea Ngnmtyib7394-94-55 09:35:00* Test Item Value Reference Range Interpretation Comments Blood Urea Nitrogen (test code = 3094-0) 24 7-26 [facility] SouthCreatinine2018-11-21 09:35:00* Test Item Value Reference Range Interpretation Comments Creatinine (test code = 2160-0) 1.60 0.72-1.25 H [facility] SouthBUN/Creatinine Bgrxk6442-75-15 09:35:00* Test Item Value Reference Range Interpretation Comments BUN/Creatinine Ratio (test code = 3097-3) 15 6- [facility] SouthEstimat Glomerular Filtration Rate 2018-09-16 09:35:00* Test Item Value Reference Range Interpretation Comments Estimat Glomerular Filtration Rate (test code = 201342028) 42 >60 L Ranges were taken from the National Kidney Disease Education Program and the [facility] literature.Reference ranges:60 or greater: Dgprxa13-61 ( for 3 consecutive months): Chronic kidney disease 15 or less: Kidney failureCHRISTUS Spohn Hospital [facility] Christi – SouthGlucose Kmgvm5586-41-92 09:35:00* Test Item Value Reference Range Interpretation Comments Glucose Level (test code = SZH8311) 151 74-118 H [facility] SouthCalcium Jgyrw6131-73-48 09:35:00* Test Item Value Reference Range Interpretation Comments Calcium Level (test code = 08168-7) 9.6 8.4-10.2 [facility] SouthBedside Fhqmhvy0083-15-82 08:21:00* Test Item Value Reference Range Interpretation Comments Bedside Glucose (test code = 18664-1) 95 70-120 Meter ID: [id number] [facility] 2018-09-16 03:38:00* Test Item Value Reference Range Interpretation Comments Magnesium Level (test code = 56917-5) 2.3 1.3-2.1 H [facility]2018-11-21 03:38:00* Test Item Value Reference Range Interpretation Comments Magnesium Level (test code = 08728-6) 2.3 1.3-2.1 H [facility]2018-11-21 03:38:00* Test Item Value Reference Range Interpretation Comments Magnesium Level (test code = 44848-0) 2.3 1.3-2.1 H [facility]2018-11-21 03:38:00* Test Item Value Reference Range Interpretation Comments Magnesium Level (test code = 24396-4) 2.3 1.3-2.1 H [facility]2018-11-21 03:38:00* Test Item Value Reference Range Interpretation Comments Magnesium Level (test code = 69931-8) 2.3 1.3-2.1 H [facility] SouthWhite Blood Lstsq6128-90-87 03:22:00* Test Item Value Reference Range Interpretation Comments White Blood Count (test code = 6690-2) 7.70 4.8-10.8 [facility] SouthRed Blood Qktcj5857-37-05 03:22:00* Test Item Value Reference Range Interpretation Comments Red Blood Count (test code = 789-8) 6.27 4.3-5.7 H [facility] SouthHemoglobin2018-11-21 03:22:00* Test Item Value Reference Range Interpretation Comments Hemoglobin (test code = 96786-2) 14.9 14.0-18.0 [facility] SouthHematocrit2018-11-21 03:22:00* Test Item Value Reference Range Interpretation Comments Hematocrit (test code = 4544-3) 52.0 38.2-49.6 H [facility] SouthMean Corpuscular Kjkvtu0915-28-29 03:22:00* Test Item Value Reference Range Interpretation Comments Mean Corpuscular Volume (test code = 787-2) 82.9 81-99 [facility] SouthMean Corpuscular Xenuyyuppn1716-22-91 03:22:00* Test Item Value Reference Range Interpretation Comments Mean Corpuscular Hemoglobin (test code = 785-6) 23.8 28-32 L [facility] SouthMean Corpuscular Hemoglobin Concent 2018-09-16 03:22:00* Test Item Value Reference Range Interpretation Comments Mean Corpuscular Hemoglobin Concent (test code = 786-4) 28.7 31-35 L [facility] SouthRed Cell Distribution Kmtqn7188-45-48 03:22:00* Test Item Value Reference Range Interpretation Comments Red Cell Distribution Width (test code = 80536-9) 18.5 11.7 -14.4 H [facility] SouthPlatelet Lkbih5624-05-25 03:22:00* Test Item Value Reference Range Interpretation Comments Platelet Count (test code = 777-3) 254 140-360 [facility] SouthNeutrophils (%) (Auto)2018-09-16 03:22:00 * Test Item Value Reference Range Interpretation Comments Neutrophils (%) (Auto) (test code = 29659-5) 66.2 38.7-80.0 [facility] SouthLymphocytes (%) (Auto)2018-09-16 03:22:00 * Test Item Value Reference Range Interpretation Comments Lymphocytes (%) (Auto) (test code = 736-9) 17.0 18.0-39.1 L [facility] SouthMonocytes (%) (Auto)2018-09-16 03:22:00* Test Item Value Reference Range Interpretation Comments Monocytes (%) (Auto) (test code = 5905-5) 12.2 4.4-11.3 H [facility] SouthEosinophils (%) (Auto)2018-09-16 03:22:00 * Test Item Value Reference Range Interpretation Comments Eosinophils (%) (Auto) (test code = 713-8) 3.2 0.0-6.0 [facility] SouthBasophils (%) (Auto)2018-09-16 03:22:00* Test Item Value Reference Range Interpretation Comments Basophils (%) (Auto) (test code = 706-2) 0.9 0.0-1.0 [facility] SouthIM GRANULOCYTES %2018-09-16 03:22:00* Test Item Value Reference Range Interpretation Comments IM GRANULOCYTES % (test code = IM GRANULOCYTES %) 0.5 0.0- 1.0 [facility] SouthNeutrophils # (Auto)2018-09-16 03:22:00* Test Item Value Reference Range Interpretation Comments Neutrophils # (Auto) (test code = 751-8) 5.1 2.1-6.9 [facility] SouthLymphocytes # (Auto)2018-09-16 03:22:00* Test Item Value Reference Range Interpretation Comments Lymphocytes # (Auto) (test code = 90747-0) 1.3 1.0-3.2 [facility] SouthMonocytes # (Auto)2018-09-16 03:22:00* Test Item Value Reference Range Interpretation Comments Monocytes # (Auto) (test code = 742-7) 0.9 0.2-0.8 H [facility] SouthEosinophils # (Auto)2018-09-16 03:22:00* Test Item Value Reference Range Interpretation Comments Eosinophils # (Auto) (test code = 711-2) 0.3 0.0-0.4 [facility] SouthBasophils # (Auto)2018-09-16 03:22:00* Test Item Value Reference Range Interpretation Comments Basophils # (Auto) (test code = 704-7) 0.1 0.0-0.1 [facility] SouthAbsolute Immature Granulocyte (auto 2018-09-16 03:22:00* Test Item Value Reference Range Interpretation Comments Absolute Immature Granulocyte (auto (bharat t code = Absolute Immature Granulocyte (auto) 0.04 0-0.1 [facility] SouthBlood Jkbugmu8886-65-40 18:32:00* Test Item Value Reference Range Interpretation Comments Blood Culture (test code = 71010041) NO GROWTH AFTER 48 HOURS [facility] SouthProthrombin Ackv9012-03-15 16:25:00* Test Item Value Reference Range Interpretation Comments Prothrombin Time (test code = 5902-2) 21.4 11.9-14.5 H [facility] SouthProthromb Time International Ratio 2018-09-15 16:25:00* Test Item Value Reference Range Interpretation Comments Prothromb Time International Ratio (test code = 6301-6) 1.71 Oral Anticoagulant Therapy INR Values:1. Low Intensity Therapy 1.5 - 2.02 . Moderate Intensity Therapy 2.0 - 3.03. High Intensity Therapy(1) 2.5 - 3. 54. High Intensity Therapy(2) 3.0 - 4.05. Panic Value INR > 5.0 [facility] SouthPlatelet Fqsmmfoy7567-05-33 09:15:00* Test Item Value Reference Range Interpretation Comments Platelet Estimate (test code = 71634-7) ADEQUATE [facility] SouthLarge Hxtnjyemg5177-32-33 09:15:00* Test Item Value Reference Range Interpretation Comments Large Platelets (test code = 5908-9) FEW [facility] SouthPlatelet Morphology Lfsxorl6371-96-09 09:15:00* Test Item Value Reference Range Interpretation Comments Platelet Morphology Comment (test code = 36265-8) NORMAL [facility] SouthHypochromasia2018-11-20 09:15:00* Test Item Value Reference Range Interpretation Comments Hypochromasia (test code = 728-6) SLIGHT [facility] SouthOvalocytes2018-11-20 09:15:00* Test Item Value Reference Range Interpretation Comments Ovalocytes (test code = 774-0) FEW [facility] SouthRed Cell Morphology Bofniti0690-02-38 09:15:00* Test Item Value Reference Range Interpretation Comments Red Cell Morphology Comment (test code = 6742-1) NORMAL [facility] SouthPlatelet Zrxnfuna4756-05-19 09:15:00* Test Item Value Reference Range Interpretation Comments Platelet Estimate (test code = 66130-3) [facility] Kyhviztws0407-24-35 09:15:00* Test Item Value Reference Range Interpretation Comments Large Platelets (test code = 5908-9) FEW [facility] SouthPlatelet Morphology Zryulds6736-45-20 09:15:00* Test Item Value Reference Range Interpretation Comments Platelet Morphology Comment (test code = 54996-0) NORMAL [facility] SouthHypochromasia2018-11-20 09:15:00* Test Item Value Reference Range Interpretation Comments Hypochromasia (test code = 728-6) SLIGHT [facility] SouthOvalocytes2018-11-20 09:15:00* Test Item Value Reference Range Interpretation Comments Ovalocytes (test code = 774-0) FEW [facility] SouthRed Cell Morphology Ttlxdbh9025-20-16 09:15:00* Test Item Value Reference Range Interpretation Comments Red Cell Morphology Comment (test code = 6742-1) NORMAL [facility] SouthPlatelet Aqqqibyh2622-88-63 09:15:00* Test Item Value Reference Range Interpretation Comments Platelet Estimate (test code = 94865-4) [facility] Euihbckus3435-56-94 09:15:00* Test Item Value Reference Range Interpretation Comments Large Platelets (test code = 5908-9) FEW [facility] SouthPlatelet Morphology Vskrpes6385-70-36 09:15:00* Test Item Value Reference Range Interpretation Comments Platelet Morphology Comment (test code = 61217-7) NORMAL [facility] SouthHypochromasia2018-11-20 09:15:00* Test Item Value Reference Range Interpretation Comments Hypochromasia (test code = 728-6) SLIGHT [facility] SouthOvalocytes2018-11-20 09:15:00* Test Item Value Reference Range Interpretation Comments Ovalocytes (test code = 774-0) FEW [facility] SouthRed Cell Morphology Ukyrpki7474-18-50 09:15:00* Test Item Value Reference Range Interpretation Comments Red Cell Morphology Comment (test code = 6742-1) NORMAL [facility] SouthPlatelet Jjkbkryg1732-58-21 09:15:00* Test Item Value Reference Range Interpretation Comments Platelet Estimate (test code = 73072-6) [facility] Bibujnjpv0814-14-81 09:15:00* Test Item Value Reference Range Interpretation Comments Large Platelets (test code = 5908-9) FEW [facility] SouthPlatelet Morphology Lclbfcg0838-79-11 09:15:00* Test Item Value Reference Range Interpretation Comments Platelet Morphology Comment (test code = 56308-3) NORMAL [facility] SouthHypochromasia2018-11-20 09:15:00* Test Item Value Reference Range Interpretation Comments Hypochromasia (test code = 728-6) SLIGHT [facility] SouthOvalocytes2018-11-20 09:15:00* Test Item Value Reference Range Interpretation Comments Ovalocytes (test code = 774-0) FEW [facility] SouthRed Cell Morphology Bsevswl1558-73-73 09:15:00* Test Item Value Reference Range Interpretation Comments Red Cell Morphology Comment (test code = 6742-1) NORMAL [facility] SouthPlatelet Bmkxjoqx5245-83-31 09:15:00* Test Item Value Reference Range Interpretation Comments Platelet Estimate (test code = 28965-2) [facility]Large Bwubkoyho2034-41-08 09:15:00* Test Item Value Reference Range Interpretation Comments Large Platelets (test code = 5908-9) FEW [facility] SouthPlatelet Morphology Vbkzssw1108-85-94 09:15:00* Test Item Value Reference Range Interpretation Comments Platelet Morphology Comment (test code = 12809-1) NORMAL [facility] SouthHypochromasia2018-11-20 09:15:00* Test Item Value Reference Range Interpretation Comments Hypochromasia (test code = 728-6) SLIGHT [facility] SouthOvalocytes2018-11-20 09:15:00* Test Item Value Reference Range Interpretation Comments Ovalocytes (test code = 774-0) FEW [facility] SouthRed Cell Morphology Ettarqz1815-68-14 09:15:00* Test Item Value Reference Range Interpretation Comments Red Cell Morphology Comment (test code = 6742-1) NORMAL [facility] Jhlweqfmu7444-03-86 09:15:00* Test Item Value Reference Range Interpretation Comments Large Platelets (test code = 5908-9) FEW [facility] SouthHypochromasia2018-11-20 09:15:00* Test Item Value Reference Range Interpretation Comments Hypochromasia (test code = 728-6) SLIGHT [facility] SouthOvalocytes2018-11-20 09:15:00* Test Item Value Reference Range Interpretation Comments Ovalocytes (test code = 774-0) FEW [facility] Uhisghqij3961-25-89 09:15:00* Test Item Value Reference Range Interpretation Comments Large Platelets (test code = 5908-9) FEW [facility] SouthHypochromasia2018-11-20 09:15:00* Test Item Value Reference Range Interpretation Comments Hypochromasia (test code = 728-6) SLIGHT [facility] SouthOvalocytes2018-11-20 09:15:00* Test Item Value Reference Range Interpretation Comments Ovalocytes (test code = 774-0) FEW [facility] Qobufsssx6012-88-86 09:15:00* Test Item Value Reference Range Interpretation Comments Large Platelets (test code = 5908-9) [facility] 09:15:00* Test Item Value Reference Range Interpretation Comments Hypochromasia (test code = 728-6) SLIGHT [facility] SouthOvalocytes2018-11-20 09:15:00* Test Item Value Reference Range Interpretation Comments Ovalocytes (test code = 774-0) FEW [facility] Pesxalukn3250-12-28 09:15:00* Test Item Value Reference Range Interpretation Comments Large Platelets (test code = 5908-9) FEW [facility] SouthHypochromasia2018-11-20 09:15:00* Test Item Value Reference Range Interpretation Comments Hypochromasia (test code = 728-6) SLIGHT [facility] SouthOvalocytes2018-11-20 09:15:00* Test Item Value Reference Range Interpretation Comments Ovalocytes (test code = 774-0) FEW [facility]Large Livzgfowl4758-12-87 09:15:00* Test Item Value Reference Range Interpretation Comments Large Platelets (test code = 5908-9) FEW [facility] SouthHypochromasia2018-11-20 09:15:00* Test Item Value Reference Range Interpretation Comments Hypochromasia (test code = 728-6) SLIGHT [facility] SouthOvalocytes2018-11-20 09:15:00* Test Item Value Reference Range Interpretation Comments Ovalocytes (test code = 774-0) FEW [facility] SouthUrine Pqiapqn5010-62-03 07:51:00* Test Item Value Reference Range Interpretation Comments Urine Culture (test code = 630-4) Organism: ESCHERICHIA COLI-ESBL [facility] SouthB-Type Natriuretic Gtuhcts5597-08-80 07:47:00* Test Item Value Reference Range Interpretation Comments B-Type Natriuretic Peptide (test code = 94557-4) 157.9 0-100 H [facility] SouthB-Type Natriuretic Yvhtdsg3747-12-93 07:47:00* Test Item Value Reference Range Interpretation Comments B-Type Natriuretic Peptide (test code = 27891-1) 157.9 0-100 H [facility] SouthThyroid Stimulating Hormone (TSH) 2018-09-15 06:12:00* Test Item Value Reference Range Interpretation Comments Thyroid Stimulating Hormone (TSH) (test code = 00904-9) 1.609 0.350-4.940 [facility] SouthThyroid Stimulating Hormone (TSH) 2018-09-15 06:12:00* Test Item Value Reference Range Interpretation Comments Thyroid Stimulating Hormone (TSH) (test code = 09029-4) 1.609 0.350-4.940 [facility] SouthThyroid Stimulating Hormone (TSH) 2018-09-15 06:12:00* Test Item Value Reference Range Interpretation Comments Thyroid Stimulating Hormone (TSH) (test code = 43470-1) 1.609 0.350-4.940 [facility] SouthThyroid Stimulating Hormone (TSH) 2018-09-15 06:12:00* Test Item Value Reference Range Interpretation Comments Thyroid Stimulating Hormone (TSH) (test code = 04179-9) 1.609 0.350-4.940 [facility] SouthThyroid Stimulating Hormone (TSH) 2018-09-15 06:12:00* Test Item Value Reference Range Interpretation Comments Thyroid Stimulating Hormone (TSH) (test code = 03030-9) 1.609 0.350-4.940 [facility] SouthCreatine Kinase LC1283-11-49 14:14:00* Test Item Value Reference Range Interpretation Comments Creatine Kinase MB (test code = 01769-8) 2.60 0-5.0 [facility] SouthTrlincoln county health systemnin Y1665-66-78 14:14:00* Test Item Value Reference Range Interpretation Comments Troponin I (test code = BBR1151) 0.009 0-0.300 [facility] SouthCreatine Kinase VS3805-86-65 14:14:00* Test Item Value Reference Range Interpretation Comments Creatine Kinase MB (test code = 83387-9) 2.60 0-5.0 [facility] Q0178-52-78 14:14:00* Test Item Value Reference Range Interpretation Comments Troponin I (test code = XRW4545) 0.009 0-0.300 [facility] SouthCreatine Grssyk7518-93-82 14:08:00* Test Item Value Reference Range Interpretation Comments Creatine Kinase (test code = 2157-6) 74 30-200 [facility] SouthCreatine Ngfvta9656-34-66 14:08:00* Test Item Value Reference Range Interpretation Comments Creatine Kinase (test code = 2157-6) 74 30-200 [facility] SouthCHEST SINGLE (PORTABLE)2018-09-14 06:27:00 [place] [address] Patient Name: STEVE BENEDICT MR #: [id number] : 1945 Age/Sex: 73/M Req #: [id number] Adm Physician: ROSALIE SHORT MD Ordered by: IBAN RAMOS MD Report #: [id number] Location: MED/SURG Room/Bed: [facility] Procedure: [id number] DX /CHEST SINGLE (PORTABLE) Exam Date: 09/14/18 Exam Ti me: 0530 REPORT STATUS: Signed E XAM: CHEST SINGLE (PORTABLE), AP 1 view INDICATION: Pneumonia COMPARISON: AP view of the chest September 13, 2018 FINDINGS: LINES/TUBES: None CATE GS: Persistent left lower lobe airspace opacity PLEURA: No effusions or pn eumothorax. HEART AND MEDIASTINUM: Stable appearance BONES AND SOFT TI SSUES: No acute findings. IMPRESSION: Stable left lower lobe airspace op acity. Signed by: Dr. Noah Nguyen M.D. on 09/14/2018 6:28 AM Dictated By: NOAH NGUYEN MD 7 Transcribed By: ERAN on 09/14/18627 COPY TO: IBAN FRASER MD CHEST 2 CKCTZ1253-72-03 19:32:00 [place] [address] Patient Name: STEVE BENEDICT MR #: [id number] : 1945 Age/Sex: 73/M Req #: [id number] Adm Physician: Ordered by: JAIR RESENDEZ [employer] DIRECTOR Report #: [id number] Location: ER Room/Bed: Procedure: [id number] DX/CHEST 2 VIEWS Exam Date: Exam Time: REPORT STATUS: Signed EXAM: CHEST 2 VIEWS, PA and lateral INDICATION: Coughing up blood COMPARISON: AP view of the ches t September 13, 2018 FINDINGS: LINES/TUBES: None LUNGS: Left lower lo be interstitial and alveolar opacities. PLEURA: No effusions or pneumothora x. HEART AND MEDIASTINUM: Stable cardiomegaly. BONES AND SOFT TISSUES: Diffuse degenerative changes of the thoracic spine. Old left-sided rib fractu res. IMPRESSION: Left lower lobe opacity. The differential includes pneum onia or hemorrhage in this patient with reported hemoptysis. Signed by: Dr. Noah Nguyen M.D. on 09/13/2018 7:34 PM Dictated By: NOAH NGUYEN MD 33 Transc ribed By: ERAN on 09/13/181933 COPY TO: JAIR RESENDEZ [employer] DIRECTOR Urine Fyxrx7210-03-37 18:07:00* Test Item Value Reference Range Interpretation Comments Urine Color (test code = 5778-6) YELLOW YELLOW [facility] SouthUrine Ejqbwia2641-89-95 18:07:00* Test Item Value Reference Range Interpretation Comments Urine Clarity (test code = 78314-8) HAZY CLEAR [facility] SouthUrine RWD0637-50-93 18:07:00* Test Item Value Reference Range Interpretation Comments Urine WBC (test code = 5821-4) 21-50 0-5 H [facility] SouthUrine DHD7023-18-10 18:07:00* Test Item Value Reference Range Interpretation Comments Urine RBC (test code = 69261-9) 0-5 0-5 [facility] SouthUrine Necvoepr1415-98-59 18:07:00* Test Item Value Reference Range Interpretation Comments Urine Bacteria (test code = 86229-0) MANY NONE H [facility] SouthUrine Epithelial Wcyhb8055-00-67 18:07:00 * Test Item Value Reference Range Interpretation Comments Urine Epithelial Cells (test code = 82178-0) FEW NONE [facility] SouthTotal Aqnbdkxga1276-24-59 18:07:00* Test Item Value Reference Range Interpretation Comments Total Bilirubin (test code = 1975-2) 0.3 0.2-1.2 [facility] SouthAspartate Amino Transf (AST/SGOT) 2018-09-13 18:07:00* Test Item Value Reference Range Interpretation Comments Aspartate Amino Transf (AST/SGOT) (test code = Aspartate Amino Transf (AST/SGOT)) 13 5-34 [facility] SouthAlanine Aminotransferase (ALT/SGPT) 2018-09-13 18:07:00* Test Item Value Reference Range Interpretation Comments Alanine Aminotransferase (ALT/SGPT) (test code = 1742-6) 18 0-55 [facility] SouthTotal Rhiywlk8822-74-10 18:07:00* Test Item Value Reference Range Interpretation Comments Total Protein (test code = 2885-2) 6.7 6.5-8.1 [facility] SouthAlbumin2018-11-18 18:07:00* Test Item Value Reference Range Interpretation Comments Albumin (test code = 1751-7) 3.3 3.5-5.0 L [facility] SouthGlobulin2018-11-18 18:07:00* Test Item Value Reference Range Interpretation Comments Globulin (test code = 11000-8) 3.4 2.3-3.5 [facility] SouthAlbumin/Globulin Pwvqb0628-36-66 18:07:00 * Test Item Value Reference Range Interpretation Comments Albumin/Globulin Ratio (test code = 1759-0) 1.0 0.8-2.0 [facility] SouthAlkaline Gafwssxtfff4018-30-09 18:07:00* Test Item Value Reference Range Interpretation Comments Alkaline Phosphatase (test code = 6768-6) 78 40-150 [facility] SouthUrine Qvbau4789-46-65 18:07:00* Test Item Value Reference Range Interpretation Comments Urine Color (test code = 5778-6) YELLOW YELLOW [facility] SouthUrine Hlejveb7865-16-75 18:07:00* Test Item Value Reference Range Interpretation Comments Urine Clarity (test code = 79588-3) HAZY CLEAR [facility] SouthUrine MZE2596-12-04 18:07:00* Test Item Value Reference Range Interpretation Comments Urine WBC (test code = 5821-4) 21-50 0-5 H [facility] SouthUrine XBN9250-70-42 18:07:00* Test Item Value Reference Range Interpretation Comments Urine RBC (test code = 84370-3) 0-5 0-5 [facility] SouthU[facility] Yefcmxte3162-64-01 18:07:00* Test Item Value Reference Range Interpretation Comments Urine Bacteria (test code = 25304-7) MANY NONE H [facility] SouthUrine Epithelial Vjbbr3221-56-40 18:07:00 * Test Item Value Reference Range Interpretation Comments Urine Epithelial Cells (test code = 43348-9) FEW NONE [facility] SouthLactic Acid Tljkn6099-22-37 18:05:00* Test Item Value Reference Range Interpretation Comments Lactic Acid Level (test code = Lactic Acid Level) 13.7 4.5- 19.8 [facility] SouthLactic Acid Kxubs8669-23-72 18:05:00* Test Item Value Reference Range Interpretation Comments Lactic Acid Level (test code = Lactic Acid Level) 13.7 4.5- 19.8 [facility] SouthUrine Specific Zatgyyi7462-34-48 18:04:00 * Test Item Value Reference Range Interpretation Comments Urine Specific [place] (test code = 5811-5) 1.015 1.010-1.02 5 [facility] SouthU[facility] dP6366-87-28 18:04:00* Test Item Value Reference Range Interpretation Comments Urine pH (test code = 09834-3) 6 5-7 [facility] Leukocyte Vmopaolm2764-46-44 18:04:00* Test Item Value Reference Range Interpretation Comments Urine Leukocyte Esterase (test code = 5799-2) TRACE NEGATIVE H [facility] SouthU[facility] Zifikfr4699-97-09 18:04:00* Test Item Value Reference Range Interpretation Comments Urine Nitrite (test code = 55596-8) POSITIVE NEGATIVE H [facility] Cpugiii7282-01-34 18:04:00* Test Item Value Reference Range Interpretation Comments Urine Protein (test code = 5804-0) NEGATIVE NEGATIVE [facility] Glucose (UA)2018-09-13 18:04:00* Test Item Value Reference Range Interpretation Comments Urine Glucose (UA) (test code = 2349-9) NEGATIVE NEGATIVE [facility] Ihwfluq2416-72-27 18:04:00* Test Item Value Reference Range Interpretation Comments Urine Ketones (test code = 25089-2) NEGATIVE NEGATIVE [facility] Ctleitvkkgrt0116-34-93 18:04:00* Test Item Value Reference Range Interpretation Comments Urine Urobilinogen (test code = 20690-4) 0.2 0.2-1 [facility] Fnvmjbseb2421-71-86 18:04:00* Test Item Value Reference Range Interpretation Comments Urine Bilirubin (test code = 1978-6) NEGATIVE NEGATIVE [facility] Xlsry2452-94-29 18:04:00* Test Item Value Reference Range Interpretation Comments Urine Blood (test code = 63275-0) NEGATIVE NEGATIVE [facility] Specific Ykrinsh2018-98-23 18:04:00 * Test Item Value Reference Range Interpretation Comments Urine Specific [place] (test code = 5811-5) 1.015 1.010-1.02 5 [facility] bO8636-74-51 18:04:00* Test Item Value Reference Range Interpretation Comments Urine pH (test code = 77857-3) 6 5-7 [facility] Leukocyte Hgkgvmyi3745-46-41 18:04:00* Test Item Value Reference Range Interpretation Comments Urine Leukocyte Esterase (test code = 5799-2) TRACE NEGATIVE H [facility] Motngbl1216-04-48 18:04:00* Test Item Value Reference Range Interpretation Comments Urine Nitrite (test code = 24346-1) POSITIVE NEGATIVE H [facility] Smbdeme2795-00-57 18:04:00* Test Item Value Reference Range Interpretation Comments Urine Protein (test code = 5804-0) NEGATIVE NEGATIVE [facility] Glucose (UA)2018-09-13 18:04:00* Test Item Value Reference Range Interpretation Comments Urine Glucose (UA) (test code = 2349-9) NEGATIVE NEGATIVE [facility] Wrmzeas6723-87-13 18:04:00* Test Item Value Reference Range Interpretation Comments Urine Ketones (test code = 46437-3) NEGATIVE NEGATIVE [facility] Xegaedavbcva3829-57-83 18:04:00* Test Item Value Reference Range Interpretation Comments Urine Urobilinogen (test code = 11692-3) 0.2 0.2-1 [facility] Cleheatqs0916-91-20 18:04:00* Test Item Value Reference Range Interpretation Comments Urine Bilirubin (test code = 1978-6) NEGATIVE NEGATIVE [facility] Meduh4040-12-48 18:04:00* Test Item Value Reference Range Interpretation Comments Urine Blood (test code = 64791-8) NEGATIVE NEGATIVE [facility] SouthActivated Partial Thromboplast Time 2018-09-13 18:01:00* Test Item Value Reference Range Interpretation Comments Activated Partial Thromboplast Time (test code = 56588-3) 43.2 23.8-35.5 H [facility] SouthActivated Partial Thromboplast Time 2018-09-13 18:01:00* Test Item Value Reference Range Interpretation Comments Activated Partial Thromboplast Time (test code = 64175-5) 43.2 23.8-35.5 H [facility] SouthCHEST SINGLE (PORTABLE)2018-09-13 17:32:00 [facility] [place] [address] Patient Name: STEVE BENEDICT MR #: [id number] : 1945 Age/Sex: 73/M Req #: [id number] Adm Physician: Ordered by: IBAN RAMOS MD Report #: [id number] Location: ER Room/Bed: Procedure: [id number] DX/ CHEST SINGLE (PORTABLE) Exam Date: 09/13/18 Exam Jose E e: 1716 REPORT STATUS: Signed EX AMINATION: CHEST SINGLE (PORTABLE) COMPARISON: Chest x-ray 07/31/2018, chest x-ray 08/19/2017 INDICATION: Hemoptysis, shortness of breath, history of COPD DISCUSSION: Frontal view of the chest obtained at 1723 hour s. HEART AND MEDIASTINUM: Stable cardiomegaly LINES: None. RENA NGS: Diffuse hyperinflation. Patchy airspace opacities have developed in the base of the left lung. 2 mm calcified granuloma in the right lung base PLEU RA: No large effusions. No pneumothorax BONES AND SOFT TISSUES: Healed le ft posterior rib fractures are stable. There are degenerative changes of the r ight AC joint. The soft tissues are normal. IMPRESSION: 1. Left basi lar airspace opacity may be the result of infiltrate or atelectasis. Recommend correlation with PA and lateral chest x-ray when clinically feasible. 2. Stable cardiomegaly. No vascular congestion. Signed by: Dr. Lalo linares MD on 09/13/2018 5:35 PM Dictated By: LALO CHAPPELL MD Electro nically Signed By: LALO CHAPPELL MD on 09/13/181734 Transcribed By: BOBBY Davidson on 09/13/181734 COPY TO: IBAN RAMOS MD GASTRIC,BIOPSY 2018-08-21 11:54:00 RUN DATE: 08/21/18 [facility] PAGE 1 RUN TIME: 1154 Specimen Inqui ry RUN USER: INTERFACE PATIENT: STEVE BENEDICT ACCT #: [id number] LOC: [facility] U #: [id number] AGE/SX: 72/M ROOM: RE08/20/18REG DR: Mauro Pan MD : 43 BED: DIS: STATUS: [facility] [place] [place] TLOC: SPEC #: [id number] RECD: 08/20/18 STATUS: AROLDO SHANNON #: [id number] [place]: 08/20/[address] [facility] DR: Mauro Pan MD ENTERED: 08/20/18 SP TYPE: GASTRIC BX OTHR DR: Teofilo Summers MD ORDERED: GROSS COPIES TO: Mauro Pan MD [address] [facility] [place] [address] Teofilo Summers MD [address] [place] [address] PROCEDURES: GROSS (08/21/18-1147) TIS SUES: 1. ANTRUM - BX CLINICAL HISTORY COLLECTION DATE: 07/28 FOLLOW UP FOR ULCERS POST-OP DIAGNOSIS: MILD GASTRITIS FI NAL DIAGNOSIS Gastric tissue, cold biopsy: REACTIVE GASTROPATHY SEPARATE FRAGMENTS OF GASTRIC MUCOSA WITH NO SIGNIFICANT PATHOLOGIC ALTERATION NO ACUTE INFLAMMATORY INFILTRATE PRESENT NEGATIVE FOR I NTESTINAL METAPLASIA FEW COCCOID STRUCTURES IDENTIFIED BY GIEMSA STAIN IMMUNOPEROXIDASE STAIN FOR HELICOBACTER PYLORI PENDING, ADDENDUM REPORT TO FOLLOW NEGATIVE FOR MALIGNANCY RRB/sm D 26533, 88 634, 39669 CONTINUED ON NEXT PAGE --------- ---RUN DATE: 08/21/18 [place] [facility] PAGE 2 RUN TIME: 1154 Specimen Inquiry RUN USER: INTERFACE SPEC #: [id number] PATIENT: STEVE BENEDICT #[id number] (Continued) MACROSCOPIC The sp ecimen is received in formalin, labeled with the patient's name and identified as "gastric bx". It consists of ballesteros biopsy material measuring 0.5 cm in aggr egate. An H E and a Giemsa stain will be prepared. GROSS PERFORMED AT [facility] [address], [place], [place] [address] (P)[phone] MICROSCOPIC MICROSCOPIC PERFORMED AT [facility] All of the stains, including any controls performed, stain a ppropriately. [facility] [address] [facility], [place] [address] (P)[phone] PERFORMING SITE Diagnosis performed at: [facility], [place] [address] [place] [address] Signed SIGNATURE ON FILE Bon Spivey 08/21/18 1154 END OF REPORT GASTRIC,[id number] 11:54:00 RUN DATE: 08/25/18 [employer] PAGE 1 RUN TIME: 1157 Specimen Inqui ry RUN USER: INTERFACE PATIENT: STEVE BENEDICT ACCT #: [id number] LOC: [place] U #: [id number] AGE/SX: 72/M ROOM: RE08/20/18REG DR: Mauro Pan MD : 44 BED: DIS: STATUS: [facility] TLOC: SPEC #: [id number] RECD: 08/20/18 STATUS: AROLDO MIRTHA #: [id number] HAYDEN: 08/20/[address] [facility] DR: Mauro Pan MD ENTERED: 08/20/18 SP TYPE: GASTRIC BX OTHR DR: Teofilo Summers MD ORDERED: GROSS COPIES TO: Mauro Pan MD [address] [place], [place] [id number] Teofilo Summers MD [address] [place], [place] [address] PROCEDURES: GROSS (08/21/18) TIS SUES: 1. ANTRUM - BX ADDENDUM FINDINGS Addendum #1 Entered: 08/25/18 Paraffin embedded tissue was submitted to [facility] for an immunoperoxidase stain for Helicobacter pylori. The slide is reviewed at [facility]. No Helicobacter organisms are identified by immunoperoxidase st n. The original diagnosis remains otherwise unchanged. Addendum Signed SIGN ATURE ON FILE Bon Spivey 08/25/18 1157 CLINICAL HISTORY COLLECTION DATE: 08/20/2018 FOLLOW UP FOR ULCERS POST-OP DIAGNOSIS: MILD GASTRITIS CONTINUED ON NEXT PAGE RUN DATE: 08/25/18 [employer] [facility] PAGE 2 RUN TIME: 1157 Specimen Inquiry RUN USER: INTERFACE SPEC #: [id number] EDIN ENT: STEVE BENEDICT #[id number] (Continued) FINAL DIAGNOSIS Gastric tissue, cold biopsy: REACTIVE GASTROPATHY SEPARATE FRAGMENTS OF GASTRIC MUCOSA WITH NO SIGNIFICANT PATHO LOGIC ALTERATION NO ACUTE INFLAMMATORY INFILTRATE PRESENT NEGATIVE FOR INTESTINAL METAPLASIA FEW COCCOID STRUCTURES IDENTIFIED BY GIEMSA ST CHISHOLM IMMUNOPEROXIDASE STAIN FOR HELICOBACTER PYLORI PENDING, ADD ENDUM REPORT TO FOLLOW NEGATIVE FOR MALIGNANCY RRB/sm D 88 05, 83748, 52082 MACROSCOPIC The specimen is received in formalin, labeled with the patient's name and identified as "gastric bx". It consists o f ballesteros biopsy material measuring 0.5 cm in aggregate. An H E and a Giemsa stain will be prepared. GROSS PERFORMED AT [facility] [address] [place] [address] (p)[phone] MICROSCOPIC MICROSCOPIC PERFORMED AT [facility] All of the sta ins, including any controls performed, stain appropriately. [facility] [address] [place] [address] (P)[phone] PE RFORMING SITE Diagnosis performed at: [facility], [place] [address] [place] [address] CONTINUED ON NEXT PAGE RUN DATE: [facility] PAGE 3 RUN TIME: 1157 Specimen Inquiry R UN USER: INTERFACE --- ---------SPEC #: [id number] PATIENT: STEVE BENEDICT #[id number] (Continued) Signed SIGNATURE ON FILE Bon Spivey 08/21/18 1154 END OF REPORT Bedside Xsaqyup6359-67-12 11:36:00* Test Item Value Reference Range Interpretation Comments Bedside Glucose (test code = 20400-5) 98 70-120 Meter ID: [id number] Southodium Level 2018-08-05 06:01:00* Test Item Value Reference Range Interpretation Comments Sodium Level (test code = 2951-2) 139 136-145 [facility]assium Mbhvb5170-93-70 06:01:00* Test Item Value Reference Range Interpretation Comments Potassium Level (test code = 2823-3) 5.3 3.5-5.1 H [facility] SouthChloride Hqdnz6679-17-68 06:01:00* Test Item Value Reference Range Interpretation Comments Chloride Level (test code = 2075-0) 98 98-107 [facility] SouthCarbon Dioxide Rxqdk2583-48-55 06:01:00* Test Item Value Reference Range Interpretation Comments Carbon Dioxide Level (test code = 2028-9) 33 22-29 H [facility] SouthAnion Cvy4057-30-96 06:01:00* Test Item Value Reference Range Interpretation Comments Anion Gap (test code = 46775-0) 13.3 8-16 [facility] SouthBlood Urea Xbamzyor7096-97-05 06:01:00* Test Item Value Reference Range Interpretation Comments Blood Urea Nitrogen (test code = 3094-0) 26 7-26 [facility] SouthCreatinine2018-10-10 06:01:00* Test Item Value Reference Range Interpretation Comments Creatinine (test code = 2160-0) 1.85 0.72-1.25 H [facility] SouthBUN/Creatinine Mzsmt4001-27-68 06:01:00* Test Item Value Reference Range Interpretation Comments BUN/Creatinine Ratio (test code = 3097-3) 14 6-25 [facility] SouthEstimat Glomerular Filtration Rate 2018-08-05 06:01:00* Test Item Value Reference Range Interpretation Comments Estimat Glomerular Filtration Rate (test code = 001440097) 36 >60 L Ranges were taken from the National Kidney Disease Education Program and the [facility] Foundation literature.Reference ranges:60 or greater: Mrgoxb01-43 ( for 3 consecutive months): Chronic kidney disease 15 or less: Kidney failureCHRISTUS [facility] Hospital [facility]i – SouthGlucose Ejiod7423-33-14 06:01:00* Test Item Value Reference Range Interpretation Comments Glucose Level (test code = OHD3848) 107 74-118 [facility] SouthCalcium Tqnod5528-72-94 06:01:00* Test Item Value Reference Range Interpretation Comments Calcium Level (test code = 90098-6) 10.0 8.4-10.2 [facility] SouthTotal Igsobmguh2898-91-58 06:01:00* Test Item Value Reference Range Interpretation Comments Total Bilirubin (test code = 1975-2) 0.6 0.2-1.2 [facility] SouthAspartate Amino Transf (AST/SGOT) 2018-08-05 06:01:00* Test Item Value Reference Range Interpretation Comments Aspartate Amino Transf (AST/SGOT) (test code = Aspartate Amino Transf (AST/SGOT)) 15 5-34 [facility] SouthAlanine Aminotransferase (ALT/SGPT) 2018-08-05 06:01:00* Test Item Value Reference Range Interpretation Comments Alanine Aminotransferase (ALT/SGPT) (test code = 1742-6) 15 0-55 [facility] SouthTotal Xrbszxd9108-61-05 06:01:00* Test Item Value Reference Range Interpretation Comments Total Protein (test code = 2885-2) 6.3 6.5-8.1 L [facility] SouthAlbumin2018-10-10 06:01:00* Test Item Value Reference Range Interpretation Comments Albumin (test code = 1751-7) 3.5 3.5-5.0 [facility] SouthGlobulin2018-10-10 06:01:00* Test Item Value Reference Range Interpretation Comments Globulin (test code = 85097-9) 2.8 2.3-3.5 [facility] SouthAlbumin/Globulin Yvono5667-88-86 06:01:00 * Test Item Value Reference Range Interpretation Comments Albumin/Globulin Ratio (test code = 1759-0) 1.3 0.8-2.0 [facility] SouthAlkaline Vkkkgslgnun2922-07-63 06:01:00* Test Item Value Reference Range Interpretation Comments Alkaline Phosphatase (test code = 6768-6) 81 40-150 [facility] SouthCreatine Frvqrc4639-29-34 06:01:00* Test Item Value Reference Range Interpretation Comments Creatine Kinase (test code = 2157-6) 89 30-200 [facility] SouthProthrombin Tzfw6936-67-77 05:43:00* Test Item Value Reference Range Interpretation Comments Prothrombin Time (test code = 5902-2) 27.8 11.9-14.5 H [facility] SouthProthromb Time International Ratio 2018-08-05 05:43:00* Test Item Value Reference Range Interpretation Comments Prothromb Time International Ratio (test code = 6301-6) 2.38 Oral Anticoagulant Therapy INR Values:1. Low Intensity Therapy 1.5 - 2.02 . Moderate Intensity Therapy 2.0 - 3.03. High Intensity Therapy(1) 2.5 - 3. 54. High Intensity Therapy(2) 3.0 - 4.05. Panic Value INR > 5.0 [facility] Rpwsq1682-80-18 09:10:00* Test Item Value Reference Range Interpretation Comments Phosphorus Level (test code = HCY9292) 2.9 2.3-4.7 [facility] SouthMagnesium Xpwbu4790-62-79 09:10:00* Test Item Value Reference Range Interpretation Comments Magnesium Level (test code = 26116-6) 1.8 1.3-2.1 [facility]2018-10-09 09:10:00* Test Item Value Reference Range Interpretation Comments Phosphorus Level (test code = ZGK3995) 2.9 2.3-4.7 [facility]2018-10-09 09:10:00* Test Item Value Reference Range Interpretation Comments Phosphorus Level (test code = FLS5769) 2.9 2.3-4.7 [facility] Azypq5041-97-98 09:10:00* Test Item Value Reference Range Interpretation Comments Phosphorus Level (test code = UJR6181) 2.9 2.3-4.7 [facility]2018-10-09 09:10:00* Test Item Value Reference Range Interpretation Comments Phosphorus Level (test code = XZW8005) 2.9 2.3-4.7 [facility]2018-10-09 09:10:00* Test Item Value Reference Range Interpretation Comments Phosphorus Level (test code = PIB1382) 2.9 2.3-4.7 [facility]2018-10-09 09:10:00* Test Item Value Reference Range Interpretation Comments Phosphorus Level (test code = TTL6546) 2.9 2.3-4.7 [facility] SouthB-Type Natriuretic Civfomz5816-26-67 15:23:00* Test Item Value Reference Range Interpretation Comments B-Type Natriuretic Peptide (test code = 35785-8) 131.9 0-100 H [facility] SouthThyroid Stimulating Hormone (TSH) 2018-08-01 06:17:00* Test Item Value Reference Range Interpretation Comments Thyroid Stimulating Hormone (TSH) (test code = 84994-6) 1.215 0.350-4.940 [facility] SouthUrine Random Ltnxtvicy7281-96-58 05:42:00 * Test Item Value Reference Range Interpretation Comments Urine Random Potassium (test code = 2828-2) 24.1 [facility] SouthUrine Dxketqpdvi2964-41-21 05:42:00* Test Item Value Reference Range Interpretation Comments Urine Creatinine (test code = 2161-8) 61.99 63-166 L [facility] SouthUrine Random Eatuwlfcu6282-74-30 05:42:00 * Test Item Value Reference Range Interpretation Comments Urine Random Potassium (test code = 2828-2) 24.1 [facility] SouthUrine Zrflhzzxaq2206-08-13 05:42:00* Test Item Value Reference Range Interpretation Comments Urine Creatinine (test code = 2161-8) 61.99 63-166 L [facility] SouthUrine Random Lqhsviozj7241-38-00 05:42:00 * Test Item Value Reference Range Interpretation Comments Urine Random Potassium (test code = 2828-2) 24.1 [facility] SouthUrine Zjbdrezdgg1700-17-77 05:42:00* Test Item Value Reference Range Interpretation Comments Urine Creatinine (test code = 2161-8) 61.99 63-166 L [facility] SouthUrine Random Xgbtslfxw3348-27-41 05:42:00 * Test Item Value Reference Range Interpretation Comments Urine Random Potassium (test code = 2828-2) 24.1 [facility] SouthUrine Random Eynhnwldu7626-81-84 05:42:00 * Test Item Value Reference Range Interpretation Comments Urine Random Potassium (test code = 2828-2) 24.1 [facility] SouthUrine Random Xpjgotqzd9383-28-43 05:42:00 * Test Item Value Reference Range Interpretation Comments Urine Random Potassium (test code = 2828-2) 24.1 [facility] SouthUrine Random Tponbttzx7773-30-15 05:42:00 * Test Item Value Reference Range Interpretation Comments Urine Random Potassium (test code = 2828-2) 24.1 [facility] SouthUrine Random Vajkricxe5836-68-56 05:42:00 * Test Item Value Reference Range Interpretation Comments Urine Random Potassium (test code = 2828-2) 24.1 [facility] SouthUrine Random Iavdqculu3044-46-16 05:42:00 * Test Item Value Reference Range Interpretation Comments Urine Random Potassium (test code = 2828-2) 24.1 [facility] SouthUrine Random Scrfizqwn1585-22-44 05:42:00 * Test Item Value Reference Range Interpretation Comments Urine Random Potassium (test code = 2828-2) 24.1 [facility] SouthWhite Blood Oatxl3843-42-34 05:39:00* Test Item Value Reference Range Interpretation Comments White Blood Count (test code = 6690-2) 8.09 4.8-10.8 [facility] SouthRed Blood Hevdv3440-71-24 05:39:00* Test Item Value Reference Range Interpretation Comments Red Blood Count (test code = 789-8) 5.77 4.3-5.7 H [facility] SouthHemoglobin2018-10-06 05:39:00* Test Item Value Reference Range Interpretation Comments Hemoglobin (test code = 86645-9) 14.2 14.0-18.0 [facility] SouthHematocrit2018-10-06 05:39:00* Test Item Value Reference Range Interpretation Comments Hematocrit (test code = 4544-3) 47.5 38.2-49.6 [facility] SouthMean Corpuscular Nyqjbf7895-11-69 05:39:00* Test Item Value Reference Range Interpretation Comments Mean Corpuscular Volume (test code = 787-2) 82.3 81-99 [facility] SouthMean Corpuscular Ltjgacxwwt0476-50-46 05:39:00* Test Item Value Reference Range Interpretation Comments Mean Corpuscular Hemoglobin (test code = 785-6) 24.6 28-32 L [facility] SouthMean Corpuscular Hemoglobin Concent 2018-08-01 05:39:00* Test Item Value Reference Range Interpretation Comments Mean Corpuscular Hemoglobin Concent (test code = 786-4) 29.9 31-35 L [facility] SouthRed Cell Distribution Zjoma5315-03-57 05:39:00* Test Item Value Reference Range Interpretation Comments Red Cell Distribution Width (test code = 34052-7) 17.2 11.7 -14.4 H [facility] SouthPlatelet Vjvae7584-57-22 05:39:00* Test Item Value Reference Range Interpretation Comments Platelet Count (test code = 777-3) 213 140-360 [facility] SouthNeutrophils (%) (Auto)2018-08-01 05:39:00 * Test Item Value Reference Range Interpretation Comments Neutrophils (%) (Auto) (test code = 84888-4) 62.9 38.7-80.0 [facility] SouthLymphocytes (%) (Auto)2018-08-01 05:39:00 * Test Item Value Reference Range Interpretation Comments Lymphocytes (%) (Auto) (test code = 736-9) 21.4 18.0-39.1 [facility] SouthMonocytes (%) (Auto)2018-08-01 05:39:00* Test Item Value Reference Range Interpretation Comments Monocytes (%) (Auto) (test code = 5905-5) 12.4 4.4-11.3 H [facility] SouthEosinophils (%) (Auto)2018-08-01 05:39:00 * Test Item Value Reference Range Interpretation Comments Eosinophils (%) (Auto) (test code = 713-8) 2.3 0.0-6.0 [facility] SouthBasophils (%) (Auto)2018-08-01 05:39:00* Test Item Value Reference Range Interpretation Comments Basophils (%) (Auto) (test code = 706-2) 0.6 0.0-1.0 [facility] SouthIM GRANULOCYTES %2018-08-01 05:39:00* Test Item Value Reference Range Interpretation Comments IM GRANULOCYTES % (test code = IM GRANULOCYTES %) 0.4 0.0- 1.0 [facility] SouthNeutrophils # (Auto)2018-08-01 05:39:00* Test Item Value Reference Range Interpretation Comments Neutrophils # (Auto) (test code = 751-8) 5.1 2.1-6.9 [facility] SouthLymphocytes # (Auto)2018-08-01 05:39:00* Test Item Value Reference Range Interpretation Comments Lymphocytes # (Auto) (test code = 94672-1) 1.7 1.0-3.2 [facility] SouthMonocytes # (Auto)2018-08-01 05:39:00* Test Item Value Reference Range Interpretation Comments Monocytes # (Auto) (test code = 742-7) 1.0 0.2-0.8 H [facility] SouthEosinophils # (Auto)2018-08-01 05:39:00* Test Item Value Reference Range Interpretation Comments Eosinophils # (Auto) (test code = 711-2) 0.2 0.0-0.4 [facility] SouthBasophils # (Auto)2018-08-01 05:39:00* Test Item Value Reference Range Interpretation Comments Basophils # (Auto) (test code = 704-7) 0.1 0.0-0.1 [facility] SouthAbsolute Immature Granulocyte (auto 2018-08-01 05:39:00* Test Item Value Reference Range Interpretation Comments Absolute Immature Granulocyte (auto (bharat t code = Absolute Immature Granulocyte (auto) 0.03 0-0.1 [facility] SouthUrine DSM5600-88-80 05:27:00* Test Item Value Reference Range Interpretation Comments Urine WBC (test code = 5821-4) 11-20 0-5 H [facility] SouthUrine CKF3771-68-36 05:27:00* Test Item Value Reference Range Interpretation Comments Urine RBC (test code = 58476-1) 6-10 0-5 H [facility] SouthUrine Lvbfxogo8784-19-57 05:27:00* Test Item Value Reference Range Interpretation Comments Urine Bacteria (test code = 90194-3) FEW NONE [facility] SouthUrine Epithelial Ucnwk1974-76-39 05:27:00 * Test Item Value Reference Range Interpretation Comments Urine Epithelial Cells (test code = 10162-3) FEW NONE [facility] SouthUrine Pdcaz0803-58-76 05:21:00* Test Item Value Reference Range Interpretation Comments Urine Color (test code = 5778-6) YELLOW YELLOW [facility] SouthUrine Keslpbv7383-86-92 05:21:00* Test Item Value Reference Range Interpretation Comments Urine Clarity (test code = 08143-3) CLEAR CLEAR [facility] Specific Hxbdshd2592-99-11 05:21:00 * Test Item Value Reference Range Interpretation Comments Urine Specific [place] (test code = 5811-5) 1.010 1.010-1.02 5 [facility] xY7472-60-25 05:21:00* Test Item Value Reference Range Interpretation Comments Urine pH (test code = 65019-6) 6 5-7 [facility] SouthUrine Leukocyte Wdqoxdfd1563-86-26 05:21:00* Test Item Value Reference Range Interpretation Comments Urine Leukocyte Esterase (test code = 5799-2) 1+ NEGATIVE H [facility] Mtddnvw4301-66-66 05:21:00* Test Item Value Reference Range Interpretation Comments Urine Nitrite (test code = 58721-5) NEGATIVE NEGATIVE [facility] SouthUrine Njylwrw5232-17-44 05:21:00* Test Item Value Reference Range Interpretation Comments Urine Protein (test code = 5804-0) NEGATIVE NEGATIVE [facility] SouthUrine Glucose (UA)2018-08-01 05:21:00* Test Item Value Reference Range Interpretation Comments Urine Glucose (UA) (test code = 2349-9) NEGATIVE NEGATIVE [facility] SouthUrine Rogmucp2366-60-46 05:21:00* Test Item Value Reference Range Interpretation Comments Urine Ketones (test code = 29308-6) NEGATIVE NEGATIVE [facility] SouthUrine Qbxikoeaboek8840-41-52 05:21:00* Test Item Value Reference Range Interpretation Comments Urine Urobilinogen (test code = 40121-8) 0.2 0.2-1 [facility] SouthUrine Yoheoider0660-89-74 05:21:00* Test Item Value Reference Range Interpretation Comments Urine Bilirubin (test code = 1978-6) NEGATIVE NEGATIVE [facility] SouthUrine Qbksu8821-07-99 05:21:00* Test Item Value Reference Range Interpretation Comments Urine Blood (test code = 73992-1) 1+ NEGATIVE H [facility] SouthCHEST 2 FXHGS3824-22-46 16:42:00 [facility] [address] [place] [address] Patient Name: STEVE BENEDICT MR #: [id number] : 1945 Age/Sex: 72/M Req #: [id number] Adm Physician: HAILEE MCGUIRE MD Ordered by: HAILEE MCGUIRE MD Report #: [id number] Location: [facility] Room/Bed: [place] [address] Procedure: [id number] DX/C HEST 2 VIEWS Exam Date: 07/31/18 Exam Time: 1614 REPORT STATUS: Signed Frontal and lateral views of the chest, 4 total view s. HISTORY: Acute CHF COMPARISON: Chest radiograph June 05, 2017 DISCUSSION: Lungs: The lungs are hyperinflated. No evidence of a consolidative pneumonia or pulmonary alveolar edema. Mild left basilar atelectasis versus scarring. Pleura: No pleural effusion or pneumothora x. Heart and mediastinum: The cardiomediastinal silhouette appears unre markable. Bones: Accentuation of the thoracic kyphosis. DISH (Diffuse idiopathic skeletal hyperostosis). Multiple healed left-sided rib fracture de formities. IMPRESSION: 1. Findings compatible with obstructive lung dis ease. 2. Minimal interstitial pulmonary edema is possible in the setting of v olume overload, but there is no evidence of alveolar pulmonary edema. Sig maryam by: Dr. John Girard D.O., M.M.M. on 07/31/2018 4:48 PM Dictated By: Lela GIRARD DO 47 Transc ribed By: ERAN on 07/31/181647 COPY TO: HAILEE MCGUIRE MD RENAL RETROPERITONEAL OKRP1719-67-83 15:30:00 [place] [address] Patient Name: STEVE BENEDICT MR #: [id number] : 1945 Age/Sex: 72/M Req #: [id number] Adm Physician: HAILEE MCGUIRE MD Ordered by: HAILEE MCGUIRE MD Report #: [id number] Location: [facility] Room/Bed: [place] [address] Procedure: [id number] US/U S RENAL RETROPERITONEAL COMP Exam Date: Exam Time: REPORT STATUS: Signed EXAM: Renal Ultrasound COMPARISON: CT Abdom en/Pelvis 09/22/2012. TECHNIQUE: Transverse and longitudinal images of the kid neys and bladder were obtained. FINDINGS: Right Kidney: Le ngth: Measures 11.2 cm Appearance: Normal echogenicity. Collecting system: No hydronephrosis Stones: None Cyst/Mass: There is an anechoic lesion measu ring up to 2.4 cm in the inferior pole of the right kidney. Left Kidney: Length: Measures 12 cm Appearance: Normal echogenicity. Collecting syst em: No hydronephrosis Stones: None Cyst/Mass: There are 3 anechoic lesions m easuring up to 3 cm in the inferior pole of the left kidney, 1.9 cm in the inf erior pole of left kidney, and 3 cm in the mid pole of the left kidney. B ladder: Unremarkable in appearance. Bilateral ureteral jets are seen. IM PRESSION: Bilateral simple appearing renal cysts. Otherwise unremarkable renal ultrasound. Signed by: Dr. Jose Manuel Person MD on 07/31/2018 3:34 PM Di ctated By: JOSE MANUEL PERSON MD Transcribed By: ERAN on 07/31/18 4994 COPY TO: HAILEE MCGUIRE MD Creatine Kinase DQ5401-07-88 14:46:00* Test Item Value Reference Range Interpretation Comments Creatine Kinase MB (test code = 68041-7) 15.00 0-5.0 H [facility] SouthTroponin N8709-20-03 14:46:00* Test Item Value Reference Range Interpretation Comments Troponin I (test code = AXB7603) 0.011 0-0.300 [facility] SouthCHEM XSIYO5104-32-75 14:28:0055[facility] FZHBZ0047-05-00 14:28:001.3[facility] THJKM9415-28-01 14:02:0055[facility] LQVZM4813-41-11 14:02:001.3[facility] 2 VIEWS [place] [address] Patient Name: STEVE BENEDICT MR #: [id number] : 1945 Age/Sex: 71/M Req #: [id number] Adm Physician: Ordered by: TEOFILO SUMMERS Report #: [id number] Location: [facility] Room/Bed: Procedure: [id number] DX/CHEST 2 VIEWS Exam Date: Exam Time: 0858 REPORT STATUS: Signed PROCEDURE: Frontal and lateral views of the chest. COMPARISON: Portable chest 06/05/2017. INDICATIONS: COPD FINDINGS: Lines/tubes: None. Lungs: No focal consolidation. No parenchymal mass. Bibasilar at electasis. Pleura: There is no pleural effusion or pneumothorax. He art and mediastinum: The heart and the mediastinum are normal. Atherosclerot ic calcifications. Bones: No acute bony abnormality. Healing left posteri or-lateral rib fractures. Degenerative changes of the thoracic spine. I MPRESSION: No acute radiographic abnormality. Dictated by: Jimy rhoades M.D. on 08/19/2017 at 10:40 Electronically approved by: Jimy yost M.D. on 08/19/2017 at 10:40 Dictated By: JIMY MCCOY MD E lectronically Signed By: JIMY MCCOY MD on 08/19/17 1040 Transcribed By: MIKE on 08/19/17 1040 COPY TO: TEOFILO [facility]
[2020-06-12] MEDS ORDERED: ONDANSETRON HCL INJ 2MG/ML 2ML 2 MG/ML VIAL IV PRN (22:00)
[2020-06-12] MEDS ORDERED: DEXTROSE 50% SYRINGE 50 ML IV PRN (22:00)
--- OUTSIDE RECORDS SUMMARY | 2020-06-12 22:00 | XMS REPORT | Clinical Summary ---
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
--- OUTSIDE RECORDS SUMMARY | 2020-06-12 22:01 | XMS REPORT | Continuity of Care Document ---
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 shake vigorously. WASTE: F/P - Black; E - Municipal Trash Bin Stable for 31 days at room temperature Expires in days from Date Inactive 04/07/2020 [facility] nter sugammadex (ANES) Route: IV, D rug form: SOLN, ONCE, Stop date: 04/07/20 10:24:00 CDT Inactive 04/07/2020 [facility] n[facility] norepinephrine (ANES) Route: I V, Drug form: INJ, ONCE, Stop date: 04/07/20 10:18:00 CDT Inactive 04/07/2020 [facility] nter sugammadex Notes: (Same as: Br idion) No Longer Active 04/07/2020 [facility] albuterol (ANES) Route: INHALA TION, Drug form: AERO/A, ONCE, Stop date: 04/07/20 9:48:00 CDT Inactive 04/07/2020 [facility] nter ceFAZolin (ANES) Route: IV, Dr ug form: INJ, ONCE, Stop date: 04/07/20 9:38:00 CDT Inactive 04/07/2020 [facility] nter fentaNYL (ANES) Route: IV, Tristan g form: INJ, ONCE, Stop date: 04/07/20 9:33:00 CDT Inactive 04/07/2020 [facility] nter esmolol (ANES) Route: IV, Drug form: INJ, ONCE, Stop date: 04/07/20 9:33:00 CDT Inactive 04/07/2020 [facility] nter Hydralazine Notes: (Same as: A presoline) Push over 5 minutes Inactive 04/07/2020 [facility] esmolol Notes: (Same as: Brevi bloc) Inactive 04/07/2020 [facility] Labetalol 10 mg, 2 mL, Route: IVP, Drug form: INJ, Q5Min, Dosing Weight 99.2, kg, PRN Elevated BP, Start date: 04/07/20 9:31:00 CDT, Duration: 5 doses or times, Stop date: 04/08/20 0:00:00 CDT, 0 Inactive 04/07/2020 [facility] Acetaminophen Notes: Max aceta minophen 4000 mg/day (4 gm/day). (Same as: Tylenol Extra Strength) Inactive 04/07/2020 [facility] n[facility] Oxycodone Hydrochloride 5 MG Oral Tablet Notes: (Same as: Roxicodone) Inactive 04/07/2020 [facility] Hydromorphone Notes: Same as D ilaudid Inactive 04/07/2020 [facility] Flumazenil Notes: (Same as: Filomena mazicon) Inactive 04/07/2020 [facility] Naloxone Notes: Same as Narcan Inactive 04/07/2020 [facility] Ondansetron Notes: (Same as: Rosanna santamaria) MEDICATION WASTE Product Size: 4 mg Product Wasted: ___ mg Inactive 04/07/2020 [facility] lidocaine (ANES) Route: IV, Dr ug form: INJ, ONCE, Stop date: 04/07/20 9:28:00 CDT Inactive 04/07/2020 [facility] n[facility] propofol (ANES) Route: IV, Tristan g form: INJ, ONCE, Stop date: 04/07/20 9:28:00 CDT Inactive 04/07/2020 [facility] nter rocuronium (ANES) Route: IV, D rug form: INJ, ONCE, Stop date: 04/07/20 9:28:00 CDT Inactive 04/07/2020 [facility] nter phenylephrine (ANES) Route: IV , Drug form: INJ, ONCE, Stop date: 04/07/20 9:12:00 CDT Inactive 04/07/2020 [facility] nter sugammadex Notes: (Same as: Br idion) Inactive 04/07/2020 [facility] Saline Flush 0.9% Notes: Same as: BD Posiflush Sterile No Longer Active 04/07/2020 [facility] Clobetasol Propionate 0.0005 MG/MG Topical Ointment Notes: (clobetasol propionate 0.05% 15 gm top OIN) (Same As: Temovate) No Longer Active 04/07/2020 [facility] Vitamin D3 Notes: Same as : Vi tamin D3 No Longer Active 04/07/2020 [facility] 24 HR mirabegron 50 MG Extended Release Tablet [Myrbetriq] Notes: (Same as: Myrbetriq ER) Non-Formulary No Longer Active 04/07/2020 [facility] Dulcolax Laxative Notes: (Same As: Dulcolax, Bisco-Lax) No Longer Active 04/07/2020 [facility] Clonazepam 0.5 mg, 1 tab, Rout e: PO, Drug form: TAB, BID, Dosing Weight 99.2, kg, PRN Anxiety, Start date: 04/07/20 8:51:00 CDT, Duration: 30 day, Stop date: 05/07/20 8:50:00 CDT, 0 No Longer Active 04/07/2020 [facility] Metolazone 5 MG Oral Tablet No bharat: (Same as: Zaroxolyn) No Longer Active 04/07/2020 [facility] Acetaminophen Notes: Do not ex ceed 4 gm/day. (Same as: Tylenol) No Longer Active 04/07/2020 [facility] Acetaminophen 325 MG / Hydrocodone Huber trate 10 MG Oral Tablet Notes: Do not exceed 4gm/day of acetamin ophen. (Same as: [place] 325/10) No Longer Active 04/07/2020 [facility] Hydromorphone Notes: Same as D ilaudid Inactive 04/07/2020 [facility] Ondansetron Notes: (Same as: Rosanna santamaria) MEDICATION WASTE Product Size: 4 mg Product Wasted: ___ mg No Longer Active 04/07/2020 [facility] Saline Flush 0.9% Notes: Same as: BD Posiflush Sterile No Longer Active 04/07/2020 [facility] Methadone Notes: (Same as: Dol ophine) No Longer Active 04/07/2020 [facility] Lactated Ringers Injection IV (ANES) 1000 mL Route: IV, Total Volume: 1,000, Start date: 04/07/20 7:34:00 CDT, Stop date: 04/07/20 8:34:00 CDT Inactive 04/07/2020 [facility] 24 HR mirabegron 50 MG Extended Release Tablet [Myrbetriq] 50 mg = 1 tab, PO, Daily, # 90 tab, 0 Re fill(s), [id number] Active 04/04/[facility] Wal-Zyr 10 mg, PO, QPM, 0 Refi ll(s) No Longer Active 04/03/2020 [facility] gabapentin 300 MG Oral Capsule 300 mg = 1 cap, PO, QPM, # 90 cap, 1 Refill(s) No Longe r Active 04/03/2020 [facility] n[facility] clonazePAM 0.5 mg oral tablet 0.5 mg = 1 tab, PO, BID, PRN anxiety, # 60 tab, 0 Refill(s) No Longer Active 04/03/2020 [facility] n[facility] methenamine hippurate 25 gm, P O, QAM & PM, 0 Refill(s) No Longer Active 04/03/2020 [facility] tamsulosin 0.4 mg oral capsule 0.4 mg = 1 cap, PO, QAM & PM, # 90 cap, 0 Refill(s) No Longer Active 04/03/2020 [facility] baclofen 10 mg oral tablet 10 mg = 1 tab, PO, QAM & PM, # 270 tab, 0 Refill(s) No Longer Active 04/03/2020 [facility] n[facility] Glucotrol 2.5 mg, 0.5 tab, Rou te: PO, Drug form: TAB, Before Breakfast, Start date: 11/11/19 10:00:00 STRAP CUTTING MACHINE OPERATOR, Duration: 30 day, Stop date: 12/11/19 7:30:00 STRAP CUTTING MACHINE OPERATOR, 0 Inactive 11/11/2019 [facility] nter 200 ACTUAT Albuterol 0.09 MG/ACTUAT Mete red Dose Inhaler [ProAir HFA] 180 microgram = 2 puff, INHALATION, Domingo y, 0 Refill(s) Active 11/11/2019 [facility] Oxygen Oxygen, 1 btl, MISC, Be dtime, Refill(s) 0 Active 11/11/2019 [facility] ProAir HFA ProAir HFA, 1 - 2 p uffs, PO, Daily, Refill(s) 0 Active 11/11/2019 [facility] Acetaminophen 300 MG / Codeine Phosphate 30 MG Oral Tablet 1 tab, PO, Q6H, PRN Pain Score 7-10, # 3 0 tab, 0 Refill(s) Active 11/11/2019 [facility] 200 ACTUAT Albuterol 0.09 MG/ACTUAT Mete red Dose Inhaler [ProAir HFA] 180 microgram, 2 puff, Route: INHALATION , Drug Form: AERO/A, Dosing Weight 94.091, kg, Daily, Start date: 11/11/19 9:00:00 STRAP CUTTING MACHINE OPERATOR, Duration: 30 day, Stop date: 12/10/19 9:00:00 STRAP CUTTING MACHINE OPERATOR Inactive 11/11/2019 [facility] ProAir HFA ProAir HFA, 1 - 2 p uffs, Route: PO, Daily, 11/11/19 9:00:00 STRAP CUTTING MACHINE OPERATOR, Duration: 30 day, Stop date: 12/10/19 9:00:00 STRAP CUTTING MACHINE OPERATOR Inactive 11/11/2019 [facility] Allopurinol Notes: (Same as: Z yloprim) Inactive 11/11/2019 [facility] Aspirin 81 MG Enteric Coated Tablet Notes: Do not crush or chew. (Same As: Ecotrin) Inactive 11/11/2019 [facility] Bumetanide Notes: (Same As: [place]) Inactive 11/11/2019 [facility] Vitamin D3 1000 intl units oral tablet Notes: Same as : Vitamin D3 Inactive 11/11/2019 [facility] Clobetasol Propionate 0.0005 MG/MG Topical Ointment Notes: (clobetasol propionate 0.05% 15 gm top OIN) (Same As: Temovate) Inactive 11/11/2019 [facility] clopidogrel Notes: (Same As: P lavix) Inactive 11/11/2019 [facility] Colchicine 0.6 mg, 1 tab, Rout e: PO, Drug form: TAB, Daily, Dosing Weight 94.091, kg, Start date: 11/11/19 9:00:00 STRAP CUTTING MACHINE OPERATOR, Duration: 30 day, Stop date: 12/10/19 9:00:00 STRAP CUTTING MACHINE OPERATOR, 0 Inactive 11/11/2019 [facility] ferrous sulfate Notes: Give wi th food. "Do Not Crush" Inactive 11/11/2019 [facility] Metolazone 5 MG Oral Tablet No bharat: (Same as: Zaroxolyn) Inactive 11/11/2019 [facility] 24 HR mirabegron 50 MG Extended Release Tablet [Myrbetriq] 50 mg, 1 tab, Route: PO, Drug form: ERTA B, Daily, Dosing Weight 94.091, kg, Start date: 11/11/19 9:00:00 STRAP CUTTING MACHINE OPERATOR, Duration: 30 day, Stop date: 12/10/19 9:00:00 STRAP CUTTING MACHINE OPERATOR Inactive 11/11/2019 [facility] Prednisone Notes: (Same as: Pr edniSONE) Take with food. Inactive 11/11/2019 [facility] Xarelto Notes: (Same as: Xarel to) Administer with food Inactive 11/11/2019 [facility] Sertraline Notes: (Same as: Z oloft) Inactive 11/11/2019 [facility] Budesonide 0.25 MG/ML Inhalant Solution Notes: (Same As: Pulmicort) Inactive 11/11/2019 [facility] glimepiride 1 mg, 1 tab, Route : PO, Drug form: TAB, Breakfast, Dosing Weight 94.091, kg, Start date: 11/11/19 8:00:00 STRAP CUTTING MACHINE OPERATOR, Duration: 30 day, Stop date: 12/10/19 8:00:00 STRAP CUTTING MACHINE OPERATOR Inactive 11/11/2019 [facility] Thyroxine 100 microgram, 1 tab , Route: PO, Drug form: TAB, Q630AM, Dosing Weight 94.091, kg, Start date: 11/11/19 6:30:00 STRAP CUTTING MACHINE OPERATOR, Duration: 30 day, Stop date: 12/10/19 6:30:00 STRAP CUTTING MACHINE OPERATOR, 0 Inactive 11/11/2019 [facility] Triiodothyronine Notes: (Same as: Cytomel) Inactive 11/11/2019 [facility] Dilaudid Notes: Same as Dilaud id Inactive 11/11/2019 [facility] Fentanyl 25 microgram, Route: IV, ONCE, Dosing Weight 94.091, kg, Start date: 11/11/19 4:15:00 STRAP CUTTING MACHINE OPERATOR, Stop date: 11/11/19 4:15:00 STRAP CUTTING MACHINE OPERATOR Inactive 11/11/2019 [facility] Saline Flush 0.9% Notes: (Same as: BD Posiflush) No Longer Active 11/11/2019 [facility] Oxygen Oxygen, 1 btl, Route: M ISC, Bedtime, 11/10/19 21:00:00 STRAP CUTTING MACHINE OPERATOR, Duration: 30 day, Stop date: 12/09/19 21:00:00 STRAP CUTTING MACHINE OPERATOR No Longer Active 11/11/2019 [facility] Folic Acid 0.4 mg, 1 tab, Rout e: PO, Drug form: TAB, BID, Dosing Weight 94.091, kg, Start date: 11/10/19 21:00:00 STRAP CUTTING MACHINE OPERATOR, Duration: 30 day, Stop date: 12/10/19 9:00:00 STRAP CUTTING MACHINE OPERATOR, 0 No Longer Active 11/11/2019 [facility] Pramipexole 0.25 mg, 2 tab, Ro demetrio: PO, Drug form: TAB, Bedtime, Dosing Weight 94.091, kg, Start date: 11/10/19 21:00:00 STRAP CUTTING MACHINE OPERATOR, Duration: 30 day, Stop date: 12/09/19 21:00:00 STRAP CUTTING MACHINE OPERATOR No Longer Active 11/11/2019 [facility] ropinirole 0.5 mg, Route: PO, Drug form: TAB, Bedtime, Dosing Weight 94.091, kg, Start date: 11/10/19 21:00:00 STRAP CUTTING MACHINE OPERATOR, Duration: 30 day, Stop date: 12/09/19 21:00:00 STRAP CUTTING MACHINE OPERATOR No Longer Active 11/11/2019 [facility] Albuterol 0.83 MG/ML Inhalant Solution Notes: SEE RT DOCUMENTATION (Same as: Proventil) No Longer Active 11/11/2019 [facility] latanoprost Notes: Keep refrig erated. (Same as:Xalatan) Opened bottle may be stored at room temperature for 6 weeks No Longer Active 11/10/2019 [facility] 24 HR Metoprolol Tartrate 25 MG Extended Release Tablet [Toprol] Notes: (Same as: Toprol XL) Do Not Crush 12.5 mg = 1/2 x 25 mg TAB No Longer Active 11/10/2019 [facility] Potassium Chloride Notes: (Manfred e as: K-Dur [...] pediatric and patients. No Longer Active 11/10/2019 [facility] Alprazolam 0.5 MG Oral Tablet Notes: With food or milk (Same as: Xanax) No Longer Active 11/10/2019 [facility] Dulcolax Laxative Notes: (Same As: Dulcolax, Bisco-Lax) No Longer Active 11/10/2019 [facility] acetaminophen-codeine #3 Notes : Do not exceed 4gm/day of acetaminophen. (Same as: Tylenol with Codeine # 3) No Longer Active 11/10/2019 [facility] Saline Flush 0.9% Notes: (Same as: BD Posiflush) No Longer Active 11/10/2019 [facility] protamine (ANES) Route: IV, Dr ug form: INJ, ONCE, Stop date: 11/10/19 15:12:00 STRAP CUTTING MACHINE OPERATOR Inactive 11/10/2019 [facility] glycopyrrolate (ANES) Route: I V, Drug form: INJ, ONCE, Stop date: 11/10/19 15:12:00 STRAP CUTTING MACHINE OPERATOR Inactive 11/10/2019 [facility] neostigmine (ANES) Route: IV, Drug form: INJ, ONCE, Stop date: 11/10/19 15:12:00 STRAP CUTTING MACHINE OPERATOR Inactive 11/10/2019 [facility] norepinephrine (ANES) Route: I V, Drug form: INJ, ONCE, Stop date: 11/10/19 14:39:00 STRAP CUTTING MACHINE OPERATOR Inactive 11/10/2019 [facility] heparin (ANES) Route: IV, Drug form: INJ, ONCE, Stop date: 11/10/19 14:39:00 STRAP CUTTING MACHINE OPERATOR Inactive 11/10/2019 [facility] propofol (ANES) Route: IV, Tristan g form: INJ, ONCE, Stop date: 11/10/19 14:34:00 STRAP CUTTING MACHINE OPERATOR Inactive 11/10/2019 [facility] ceFAZolin (ANES) Route: IV, ug form: INJ, ONCE, Stop date: 11/10/19 14:34:00 STRAP CUTTING MACHINE OPERATOR Inactive 11/10/2019 [facility] lidocaine (ANES) Route: IV, Dr ug form: INJ, ONCE, Stop date: 11/10/19 14:18:00 STRAP CUTTING MACHINE OPERATOR Inactive 11/10/2019 [facility] rocuronium (ANES) Route: IV, D rug form: INJ, ONCE, Stop date: 11/10/19 14:18:00 STRAP CUTTING MACHINE OPERATOR Inactive 11/10/2019 [facility] fentaNYL (ANES) Route: IV, Tristan g form: INJ, ONCE, Stop date: 11/10/19 14:18:00 STRAP CUTTING MACHINE OPERATOR Inactive 11/10/2019 [facility] Fentanyl Notes: (Same as: Subl imaze) Preservative free. No Longer Active 11/10/2019 [facility] Hydromorphone Notes: Same as D ilaudid No Longer Active 11/10/2019 [facility] Flumazenil Notes: (Same as: Ro mazicon) No Longer Active 11/10/2019 [facility] Naloxone Notes: Same as Narcan No Longer Active 11/10/2019 [facility] Diphenhydramine Notes: (Same a s: Benadryl) No Longer Active 11/10/2019 [facility] Ondansetron Notes: (Same as: Rosanna santamaria) MEDICATION WASTE Product Size: 4 mg Product Wasted: ___ mg No Longer Active 11/10/2019 [facility] norepinephrine (ANES) 10 microgram Route: IV, Drug form: INJ, Start date: 11/10/19 13:51:00 STRAP CUTTING MACHINE OPERATOR, Stop date: 11/10/19 14:51:00 STRAP CUTTING MACHINE OPERATOR Inactive 11/10/2019 [facility] Sodium Chloride 0.9% IV (ANES) 1000 mL Route: IV, Total Volume: 1,000, Start date: 11/10/19 13:29:00 STRAP CUTTING MACHINE OPERATOR, Stop date: 11/10/19 14:29:00 STRAP CUTTING MACHINE OPERATOR Inactive 11/10/2019 [facility] methenamine hippurate 1 g oral tablet 1 gm = 1 tab, PO, BID, 0 Refill(s) Active 11/10/2019 [facility] Metolazone 5 MG Oral Tablet 5 mg = 1 tab, PO, Daily, 0 Refill(s) Active 11/10/2019 [facility] predniSONE 10 mg oral tablet 1 0 mg = 1 tab, PO, Daily, 3 Refill(s) Active 11/10/2019 [facility] ferrous sulfate 325 mg oral enteric coated tablet 325 mg = 1 tab, PO, Daily, 0 Refill(s) Active 11/10/2019 [facility] glimepiride 1 mg oral tablet 1 mg = 1 tab, PO, Breakfast, 0 Refill(s) Active 11/10/2019 [facility] Albuterol 0.83 MG/ML Inhalant Solution 2.5 mg = 3 mL, NEB, BID, am/pm, 0 Refill(s) Active 11/10/2019 [facility] Sodium Chloride 0.9% IV 1,000 mL 1,000 ml, Rate: 50 ml/hr, Infuse over: 20 hr, Route: IV, Dosing Weight 94.091 kg, Total Volume: 1,000, Start date: 11/10/19 10:52:00 STRAP CUTTING MACHINE OPERATOR, Duration: 30 day, Stop date: 12/10/19 10:51:00 STRAP CUTTING MACHINE OPERATOR, 2.16, m2, 0 No Longer Active 11/10/2019 [facility] Bacitracin 0.5 UNT/MG / Polymyxin B 10 U NT/MG Topical Ointment 1 appl, TOP, QID, # 30 gm, 0 Refill(s) Active 10/17/2019 [facility] Albuterol 0.83 MG/ML Inhalant Solution Notes: SEE RT DOCUMENTATION (Same as: Madhuri) Inactive 10/17/2019 [facility] Bacitracin 0.5 UNT/MG Topical Ointment 1 appl, Route: TOP, ONCE, Drug form: OINT, Start date: 10/16/19 18:58:00 STRAP CUTTING MACHINE OPERATOR, Stop date: 10/16/19 18:58:00 STRAP CUTTING MACHINE OPERATOR, 0 Inactive 10/17/2019 [facility] 24 HR mirabegron 50 MG Extended Release Tablet [Myrbetriq] 50 mg = 1 tab, PO, Daily, # 90 tab, 1 Re fill(s), Pharmacy: [facility] #[id number] Active 06/02/2019 [facility] Levofloxacin 500 MG Oral Tablet [Levaquin] 500 mg = 1 tab, PO, Q24H, X 7 day, # 7 tab, 0 Refill(s), Pharmacy: [facility] [id number] Active 05/18/2019 [facility] allopurinol 300 mg oral tablet 300 mg = 1 tab, PO, Daily, # 90 tab, 1 Refill(s) Active 04/19/2019 [facility] methenamine hippurate 1 gm, PO , Daily, 0 Refill(s) Active 04/19/2019 [facility] Dulcolax Laxative = 1 supp, ME , Daily, PRN constipation, # 5 supp, 0 Refill(s) Active 04/19/2019 [facility] Colchicine 0.6 mg, PO, Daily, 0 Refill(s) Active 04/19/2019 [facility] Fosfomycin 33.3 MG/ML Oral Suspension [Monurol] = 1 Pack, PO, ONCE, # 3 gm, 0 Refill(s), Pharmacy: [facility] [id number] Active 12/03/2018 [facility] Hydrochlorothiazide 50 MG / Spironolacto ne 50 MG Oral Tablet [Aldactazide] 1 tab, PO, PRN, 0 Refill(s) Active 11/30/2018 [facility] baclofen 10 mg oral tablet 10 mg = 1 tab, PO, TID, # 90 tab, 0 Refill(s) Active 11/30/2018 [facility] Budesonide 0.25 MG/ML Inhalant Solution 0.5 mg = 2 mL, NEB, Daily, # 60 ea, 11 Refill(s) Active 11/30/2018 [facility] carisoprodol 350 mg oral tablet 350 mg = 1 tab, PO, TID, PRN Muscle Spasms, # 42 tab, 0 Refill(s) Active 11/30/2018 [facility] Clobetasol Propionate 0.0005 MG/MG Topical Ointment TOP, Daily, 0 Refill(s) Active 11/30/2018 [facility] clopidogrel 75 mg oral tablet 75 mg [...] # 30 tab, 0 Refill(s) Active 11/30/2018 [facility] hydromorphone 8 mg oral tablet 8 mg = 1 tab, PO, BID, PRN Pain, 0 Refill(s) Active 11/30/[facility] Sodium Chloride 1.2 MEQ/ML Inhalant Solu tion [Hyper-Lamine] PRN, 0 Refill(s) Active 11/30/2018 [facility] Oxygen 1 btl, MISC, Bedtime, # 1 btl, 0 Refill(s) Active 11/30/2018 [facility] pantoprazole 40 mg oral enteric coated tablet 40 mg = 1 tab, PO, Daily, # 30 tab, 0 Refill(s) Active 11/30/2018 [facility] Potassium Chloride 20 mEq, BID , 0 Refill(s) Active 11/30/2018 [facility] pramipexole 0.125 mg oral tablet 0.125 mg = 1 tab, PO, Bedtime, # 30 tab, 1 Refill(s) Active 11/30/2018 [facility] 200 ACTUAT Albuterol 0.09 MG/ACTUAT Mete red Dose Inhaler [ProAir HFA] 2 puff, INHALATION, Daily, 0 Refill(s) Active 11/30/2018 [facility] non-formulary RAPATHA INJECTIO N 140MG Q2WEEK, Refill(s) 0 Active 11/30/2018 [facility] rOPINIRole 0.5 mg oral tablet 0.5 mg = 1 tab, PO, Bedtime, # 30 tab, 1 Refill(s) Active 11/30/2018 [facility] sertraline 50 mg oral tablet 5 0 mg = 1 tab, PO, Daily, # 30 tab, 0 Refill(s) Active 11/30/2018 [facility] rivaroxaban 15 MG Oral Tablet [Xarelto] 15 mg = 1 tab, PO, Daily, # 90 tab, 3 Refill(s) Active 11/30/2018 [facility] Aspirin 81 MG Enteric Coated Tablet 81 mg = 1 tab, PO, Daily, # 90 tab, 3 Refill(s) Active 11/30/2018 [facility] Folic Acid 400 MCG, BID, 0 Ref ill(s) Active 11/30/2018 [facility] Mucus Relief DM PO, BID, 0 Ref ill(s) Active 11/30/2018 [facility] Vitamin B12 Methylcobalamin SL , qWeek, 0 Refill(s) Active 11/30/2018 [facility] Vitamin D3 2000 intl units oral capsule 2,000 IntlUnit = 1 cap, PO, Daily, # 100 cap, 3 Refill(s) Active 11/30/2018 [facility] 24 HR mirabegron 50 MG Extended Release Tablet [Myrbetriq] See Instructions, TAKE 1 TABLET BY MOUTH EVERY DAY, # 90 tab, 0 Refill(s), Pharmacy: [email or web address] [id number], please have patient call for appt prior to next refill Active 11/05/2018 [facility] Allergies, Adverse Reactions, Alerts Substance Category Reaction Severity Reaction type Status Date Reported Comments Source No Known Medication Allergies Assertion Drug aller gy [facility] Lyrica<sup>1</sup> Assertion Drug allergy Active R[facility] Immunizations Immunization Date Given Site Status Last Updated Comments Source diphtheria/pertussis, acel/tetanus adult 10/17/2019 Right deltoid completed [facility] Results Order Name Results Value Reference Range Date Interpretation Comments Source ELECTROLYTES Potassium Lvl 3.2 3.5 - 5.1 04/20/2020 [facility] CHEM PANEL Magnesium Lvl 2.0 1.8 - 2.4 04/20/2020 [facility] CHEM PANEL Glucose Lvl 103 70 - 99 04/20/2020 [facility] CHEM PANEL BUN 39 7 - 22 04/20/2020 [facility] CHEM PANEL Creatinine Lvl 1.56 0.50 - 1.40 04/20/2020 [facility] CHEM PANEL Sodium Lvl 136 135 - 145 04/20/2020 [facility] CHEM PANEL Potassium Lvl 2.8 3.5 - 5.1 04/20/2020 Result Comment: Critical Result(s) harrison d to Aiden Cerda at 04/20/2020 07:23 by ANNABELLE. Read back OK. [facility] CHEM PANEL Chloride Lvl 97 95 - 109 04/20/2020 [facility] CHEM PANEL CO2 33 24 - 32 04/20/2020 [facility] CHEM PANEL AGAP 8.8 10.0 - 20.0 04/20/2020 [facility] CHEM PANEL Calcium Lvl 8.3 8.5 - 10.5 04/20/2020 [facility] CHEM PANEL eGFR 43 04/20/2020 [...] should be multiplied by the estimated BMI. [facility] RBC Morph Kay l (04/20/20 6:15 AM) Normal 04/20/2020 [facility] Plt Morph Kay l (04/20/20 6:15 AM) Normal 04/20/2020 [facility] Segs 73.4 45.0 - 75.0 04/20/2020 [facility] Lymphocytes 16.9 20.0 - 40.0 04/20/2020 [facility] Monocytes 7.8 2.0 - 12.0 04/20/2020 [facility] Eosinophils 1.0 0.0 - 4.0 04/20/2020 [facility] Basophils 0.9 0.0 - 1.0 04/20/2020 [facility] Neutrophils # 3.5 1.5 - 8.1 04/20/2020 [facility] Lymphocytes # 0.8 1.0 - 5.5 04/20/2020 [facility] Monocytes # 0.4 0.0 - 0.8 04/20/2020 [facility] Eosinophils # 0.1 0.0 - 0.5 04/20/2020 [facility] WBC 4.8 3.7 - 10.4 04/20/2020 [facility] RBC 4.39 4.70 - 6.10 04/20/2020 [facility] Hgb 12.1 14.0 - 18.0 04/20/2020 [facility] Hct 38.3 42.0 - 54.0 04/20/2020 [facility] MCV 87.2 80.0 - 94.0 04/20/2020 [facility] MCH 27.5 27.0 - 31.0 04/20/2020 [facility] MCHC 31.5 32.0 - 36.0 04/20/2020 [facility] RDW 19.6 11.5 - 14.5 04/20/2020 [facility] Platelet 183 133 - 450 04/20/2020 [facility] HEMATOLOGY MPV 8.0 7.4 - 10.4 04/20/2020 [facility] TOXICOLOGY Vanco Tr 17.2 04/19/2020 [facility] TOXICOLOGY Vanco Tr TND 1330 04/19/2020 [facility] CHEM PANEL Glucose Lvl 83 70 - 99 04/19/2020 [facility] CHEM PANEL BUN 36 7 - 22 04/19/2020 [facility] CHEM PANEL Creatinine Lvl 1.50 0.50 - 1.40 04/19/2020 [facility] CHEM PANEL Sodium Lvl 138 135 - 145 04/19/2020 [facility] CHEM PANEL Potassium Lvl 3.1 3.5 - 5.1 04/19/2020 [facility] CHEM PANEL Chloride Lvl 100 95 - 109 04/19/2020 [facility] CHEM PANEL CO2 35 24 - 32 04/19/2020 [facility] CHEM PANEL Calcium Lvl 9.2 8.5 - 10.5 04/19/2020 [facility] CHEM PANEL AGAP 6.1 10.0 - 20.0 04/19/2020 [facility] CHEM PANEL eGFR 45 04/19/2020 [...] should be multiplied by the estimated BMI. [facility] CHEM PANEL Magnesium Lvl 1.6 1.8 - 2.4 04/19/2020 [facility] CHEM PANEL Phosphorus 3.4 2.5 - 4.5 04/19/2020 [facility] HEMATOLOGY Plt Morph Kay l (04/19/20 5:04 AM) Normal 04/19/2020 [facility] HEMATOLOGY Segs 76.2 45.0 - 75.0 04/19/2020 [facility] HEMATOLOGY Lymphocytes 15.3 20.0 - 40.0 04/19/2020 [facility] HEMATOLOGY Monocytes 7.2 2.0 - 12.0 04/19/2020 [facility] HEMATOLOGY Eosinophils 0.6 0.0 - 4.0 04/19/2020 [facility] HEMATOLOGY Basophils 0.7 0.0 - 1.0 04/19/2020 [facility] HEMATOLOGY Neutrophils # 3.5 1.5 - 8.1 04/19/2020 [facility] HEMATOLOGY Lymphocytes # 0.7 1.0 - 5.5 04/19/2020 [facility] HEMATOLOGY Monocytes # 0.3 0.0 - 0.8 04/19/2020 [facility] HEMATOLOGY Hypochrom 1+ (04/19/20 5:04 AM) None Seen 04/19/2020 [facility] HEMATOLOGY WBC 4.6 3.7 - 10.4 04/19/2020 [facility] HEMATOLOGY RBC 4.73 4.70 - 6.10 04/19/2020 [facility] Hgb 12.8 14.0 - 18.0 04/19/2020 [facility] HEMATOLOGY Hct 41.5 42.0 - 54.0 04/19/2020 [facility] HEMATOLOGY MCV 87.8 80.0 - 94.0 04/19/2020 [facility] MCH 27.1 27.0 - 31.0 04/19/2020 [facility] MCHC 30.8 32.0 - 36.0 04/19/2020 [facility] HEMATOLOGY RDW 19.5 11.5 - 14.5 04/19/2020 [facility] HEMATOLOGY Platelet 194 133 - 450 04/19/2020 [facility] MPV 7.8 7.4 - 10.4 04/19/2020 [facility] CHEM PANEL Glucose Lvl 77 70 - 99 04/18/2020 [facility] CHEM PANEL BUN 41 7 - 22 04/18/2020 [facility] CHEM PANEL Creatinine Lvl 1.60 0.50 - 1.40 04/18/2020 [facility] CHEM PANEL Sodium Lvl 138 135 - 145 04/18/2020 [facility] CHEM PANEL Chloride Lvl 98 95 - 109 04/18/2020 [facility] CHEM PANEL CO2 37 24 - 32 04/18/2020 [facility] CHEM PANEL AGAP 6.0 10.0 - 20.0 04/18/2020 [facility] CHEM PANEL Calcium Lvl 9.0 8.5 - 10.5 04/18/2020 [facility] CHEM PANEL eGFR 42 04/18/2020 [...] should be multiplied by the estimated BMI. [facility] CHEM PANEL Magnesium Lvl 2.1 1.8 - 2.4 04/18/2020 [facility] HEMATOLOGY WBC 4.8 3.7 - 10.4 04/18/2020 [facility] HEMATOLOGY RBC 4.57 4.70 - 6.10 04/18/2020 [facility] Hgb 12.5 14.0 - 18.0 04/18/2020 [facility] Hct 40.3 42.0 - 54.0 04/18/2020 [facility] MCV 88.3 80.0 - 94.0 04/18/2020 [facility] MCH 27.3 27.0 - 31.0 04/18/2020 [facility] MCHC 30.9 32.0 - 36.0 04/18/2020 [facility] RDW 19.9 11.5 - 14.5 04/18/2020 [facility] Platelet 196 133 - 450 04/18/2020 [facility] MPV 7.9 7.4 - 10.4 04/18/2020 [facility] Plt Morph Kay l (04/18/20 6:25 AM) Normal 04/18/2020 [facility] HEMATOLOGY Segs 73.6 45.0 - 75.0 04/18/2020 [facility] Lymphocytes 17.5 20.0 - 40.0 04/18/2020 [facility] Monocytes 8.1 2.0 - 12.0 04/18/2020 [facility] HEMATOLOGY Eosinophils 0.3 0.0 - 4.0 04/18/2020 [facility] HEMATOLOGY Basophils 0.5 0.0 - 1.0 04/18/2020 [facility] HEMATOLOGY Neutrophils # 3.6 1.5 - 8.1 04/18/2020 [facility] HEMATOLOGY Lymphocytes # 0.8 1.0 - 5.5 04/18/2020 [facility] HEMATOLOGY Monocytes # 0.4 0.0 - 0.8 04/18/2020 [facility] HEMATOLOGY Anisocyte 1+ *ABN* (04/18/20 6:25 AM) None Seen 04/18/2020 [facility] HEMATOLOGY Hypochrom 1+ (04/18/20 6:25 AM) None Seen 04/18/2020 [facility] TOXICOLOGY Vanco Lvl 15.8 04/17/2020 [facility] TOXICOLOGY Vanco Lvl 17.9 04/16/2020 [facility] CARDIAC ENZYMES BNP 420 <=100 pg/mL 04/15/2020 [facility] CHEM PANEL Phosphorus 3.1 2.5 - 4.5 04/15/2020 [facility] Basophils # 0.1 0.0 - 0.2 04/15/2020 [facility] Hypochrom 1+ (04/15/20 5:56 AM) None Seen 04/15/2020 [facility] TOXICOLOGY Vanco Lvl 25.5 04/14/2020 [facility] BACTERIAL - SEROLOGY MRSA by PCR Negative (04/14/20 7:47 AM) 04/14/2020 [facility] CARDIAC ENZYMES Troponin-I 0.13 0.00 - 0.40 04/14/2020 [facility] CHEM PANEL Phosphorus 4.5 2.5 - 4.5 04/14/2020 [facility] Sed Rate 54 0 - 15 04/14/2020 [facility] C-REACTIVE PROTEIN 106.0 <=2.9 mg/L 04/14/2020 [facility] CARDIAC ENZYMES Troponin-I 0.15 0.00 - 0.40 04/13/2020 [facility] IMMUNOLOGY Spec Type (UPE) rando m, 100x 04/13/2020 [facility] IMMUNOLOGY Tot Prot (UPE) 31 04/13/2020 [facility] IMMUNOLOGY Interp (UPE) Urine protein consists primarily of albumin. No monoclonal bands are identified. Interpretation performed at [facility]. 04/13/2020 [facility] URINE AND STOOL UA Turbidity Slight *ABN* (04/13/20 5:27 PM) Clear 04/13/2020 [facility] URINE AND STOOL UA Spec Grav 1.017 <=1.030 04/13/2020 [facility] URINE AND STOOL UA pH 5.0 5.0 - 8.0 04/13/2020 [facility] URINE AND STOOL UA Protein Negative mg/dL Negative mg/dL 04/13/2020 [facility] URINE AND STOOL UA Glucose Negative mg/dL Negative mg/dL 04/13/2020 [facility] URINE AND STOOL UA Ketones Negative mg/dL Negative mg/dL 04/13/2020 [facility] URINE AND STOOL UA Bili Negative *NA* (04/13/20 5:27 PM) Negative 04/13/2020 [facility] URINE AND STOOL UA Blood Negative (04/13/20 5:27 PM) Negative 04/13/2020 [facility] URINE AND STOOL UA Nitrite Positive *ABN* (04/13/20 5:27 PM) Negative 04/13/2020 [facility] URINE AND STOOL UA Leuk Est Negative (04/13/20 5:27 PM) Negative 04/13/2020 [facility] URINE AND STOOL UA Sq Epi Occasional /LPF Few /LPF 04/13/2020 [facility] URINE AND STOOL UA WBC 2 0 - 5 04/13/2020 [facility] URINE AND STOOL UA RBC 1 0 - 2 04/13/2020 [facility] URINE AND STOOL UA Bacteria Occasional /HPF None Seen /HPF 04/13/2020 [facility] URINE AND STOOL UA Hyal Cast 83 0 - 2 04/13/2020 [facility] URINE AND STOOL UA Color Demi 04/13/2020 [facility] URINE AND STOOL UA Urobilinogen <=1.0 mg/dL 0.1 - 1.0 04/13/2020 [facility] URINE CHEM U Prot/Creat 0.17 04/13/2020 [facility] URINE CHEM U Creatinine 206.00 04/13/2020 [facility] URINE CHEM U Sodium 12 04/13/2020 [facility] URINE CHEM U Protein 36.0 04/13/2020 [facility] URINE CHEM U Eos None Seen (04/13/20 5:27 PM) None Seen 04/13/2020 [facility] CARDIAC ENZYMES BNP 443 <=100 pg/mL 04/13/2020 [facility] CARDIAC ENZYMES Total CK 81 12 - 191 04/13/2020 [facility] CARDIAC ENZYMES Troponin-I 0.06 0.00 - 0.40 04/13/2020 [facility] CHEM PANEL Procalcitonin Lvl 0.58 0.00 - 0.10 04/13/2020 [facility] CHEM PANEL Total Protein 6.1 6.4 - 8.4 04/13/2020 [facility] CHEM PANEL Albumin Lvl 2.6 3.5 - 5.0 04/13/2020 [facility] CHEM PANEL ALT 21 0 - 65 04/13/2020 [facility] CHEM PANEL AST 25 0 - 37 04/13/2020 [facility] CHEM PANEL Alk Phos 75 39 - 136 04/13/2020 [facility] CHEM PANEL Bili Total 0.5 0.2 - 1.3 04/13/2020 [facility] CHEM PANEL B/C Ratio 23 6 - 25 04/13/2020 [facility] CHEM PANEL Globulin 3.5 2.7 - 4.2 04/13/2020 [facility] CHEM PANEL A/G Ratio 0.7 0.7 - 1.6 04/13/2020 [facility] CHEM PANEL Lactic Acid Lvl 2.0 0.5 - 2.2 04/13/2020 [facility] HEMATOLOGY D-Dimer 0.94 04/13/2020 [facility] HEMATOLOGY PT 13.2 12.0 - 14.7 04/13/2020 [facility] HEMATOLOGY INR 1.00 0.85 - 1.17 04/13/2020 [facility] HEMATOLOGY PTT 28.1 22.9 - 35.8 04/13/2020 [facility] DIAGNOSTIC S. aureus Not Detected (04/13/20 10:56 AM) Not Detected 04/13/2020 [facility] DIAGNOSTIC S. epidermidis Detected *ABN* (04/13/20 10:56 AM) Not Detected 04/13/2020 [facility] S. lugdunensis Not Detected (04/13/20 10:56 AM) Not Detected 04/13/2020 [facility] DIAGNOSTIC S. anginosus gr p Not Detected (04/13/20 10:56 AM) Not Detected 04/13/2020 [facility] DIAGNOSTIC S. agalactiae Not Detected (04/13/20 10:56 AM) Not Detected 04/13/2020 [facility] DIAGNOSTIC S. pneumoniae Not Detected (04/13/20 10:56 AM) Not Detected 04/13/2020 [facility] DIAGNOSTIC S. pyogenes Not Detected (04/13/20 10:56 AM) Not Detected 04/13/2020 [facility] DIAGNOSTIC E. faecalis Not Detected (04/13/20 10:56 AM) Not Detected 04/13/2020 [facility] E. faecium Not Detected (04/13/20 10:56 AM) Not Detected 04/13/2020 [facility] Staphylococcus spp. Detected *ABN* (04/13/20 10:56 AM) Not Detected 04/13/2020 [facility] Streptococcus s pp. Not Detected (04/13/20 10:56 AM) Not Detected 04/13/2020 [facility] Listeria spp. Not Detected (04/13/20 10:56 AM) Not Detected 04/13/2020 [facility] mecA Methicilli n Resistance Detected *ABN* (04/13/20 10:56 AM) Not Detected 04/13/2020 [facility] Daisha Vancomycin Resistance Not Detected (04/13/20 10:56 AM) Not Detected 04/13/2020 [facility] vanB Vancomycin Resistance Not Detected (04/13/20 10:56 AM) Not Detected 04/13/2020 [facility] TOXICOLOGY Vanco Tr 17.9 04/12/2020 [facility] TOXICOLOGY Vanco Tr TND 1930 04/12/2020 [facility] CHEM PANEL Glucose Lvl 108 70 - 99 04/10/2020 [facility] CHEM PANEL BUN 64 7 - 22 04/10/2020 [facility] CHEM PANEL Creatinine Lvl 1.77 0.50 - 1.40 04/10/2020 [facility] CHEM PANEL Sodium Lvl 136 135 - 145 04/10/2020 [facility] CHEM PANEL Potassium Lvl 3.7 3.5 - 5.1 04/10/2020 [facility] CHEM PANEL Chloride Lvl 91 95 - 109 04/10/2020 [facility] CHEM PANEL CO2 42 24 - 32 04/10/2020 Result Comment: Critical Result(s) called to Margarette Mathew at 04/10/2020 06:21 by . Read back OK. [facility] CHEM PANEL AGAP 6.7 10.0 - 20.0 04/10/2020 [facility] CHEM PANEL Calcium Lvl 9.2 8.5 - 10.5 04/10/2020 [facility] CHEM PANEL eGFR 37 04/10/2020 Result Comment: [...] should be multiplied by the estimated BMI. [facility] TOXICOLOGY Vanco Tr 17.8 04/10/2020 [facility] TOXICOLOGY Vanco Tr TND 2000 04/10/2020 [facility] CHEM PANEL Glucose Lvl 136 70 - 99 04/09/2020 [facility] CHEM PANEL BUN 69 7 - 22 04/09/2020 [facility] CHEM PANEL Creatinine Lvl 2.00 0.50 - 1.40 04/09/2020 [facility] CHEM PANEL Sodium Lvl 137 135 - 145 04/09/2020 [facility] CHEM PANEL Potassium Lvl 4.1 3.5 - 5.1 04/09/2020 [facility] CHEM PANEL Chloride Lvl 91 95 - 109 04/09/2020 [facility] CHEM PANEL CO2 35 24 - 32 04/09/2020 [facility] CHEM PANEL AGAP 15.1 10.0 - 20.0 04/09/2020 [facility] CHEM PANEL Calcium Lvl 9.5 8.5 - 10.5 04/09/2020 [facility] CHEM PANEL eGFR 32 04/09/2020 Result Comment: [...] should be multiplied by the estimated BMI. [facility] TOXICOLOGY Vanco Lvl 16.5 04/08/2020 [facility] CHEM PANEL Glucose Lvl 194 70 - 99 04/08/2020 [facility] CHEM PANEL BUN 65 7 - 22 04/08/2020 [facility] CHEM PANEL Creatinine Lvl 1.88 0.50 - 1.40 04/08/2020 [facility] CHEM PANEL Sodium Lvl 135 135 - 145 04/08/2020 [facility] CHEM PANEL Potassium Lvl 2.8 3.5 - 5.1 04/08/2020 Result Comment: Critical Result(s) harrison d to Filippo Gaona at 04/08/2020 11:26 by RG. Read back OK. [facility] CHEM PANEL Chloride Lvl 85 95 - 109 04/08/2020 [facility] CHEM PANEL CO2 43 24 - 32 04/08/2020 Result Comment: Critical Result(s) called to Filippo Gaona at 04/08/2020 11:27 by RG. Read back OK. [facility] CHEM PANEL AGAP 9.8 10.0 - 20.0 04/08/2020 [facility] CHEM PANEL Calcium Lvl 9.1 8.5 - 10.5 04/08/2020 [facility] CHEM PANEL eGFR 34 04/08/2020 Result Comment: [...] should be multiplied by the estimated BMI. [facility] HEMATOLOGY WBC 7.3 3.7 - 10.4 04/08/2020 [facility] HEMATOLOGY RBC 4.74 4.70 - 6.10 04/08/2020 [facility] HEMATOLOGY Hgb 12.8 14.0 - 18.0 04/08/2020 [facility] HEMATOLOGY Hct 41.2 42.0 - 54.0 04/08/2020 [facility] HEMATOLOGY MCV 86.8 80.0 - 94.0 04/08/2020 [facility] HEMATOLOGY MCH 27.0 27.0 - 31.0 04/08/2020 [facility] HEMATOLOGY MCHC 31.1 32.0 - 36.0 04/08/2020 [facility] HEMATOLOGY RDW 20.1 11.5 - 14.5 04/08/2020 [facility] HEMATOLOGY Platelet 156 133 - 450 04/08/2020 [facility] HEMATOLOGY MPV 7.4 7.4 - 10.4 04/08/2020 [facility] HEMATOLOGY Segs 83.0 45.0 - 75.0 04/08/2020 [facility] HEMATOLOGY Lymphocytes 11.0 20.0 - 40.0 04/08/2020 [facility] HEMATOLOGY Monocytes 5.3 2.0 - 12.0 04/08/2020 [facility] HEMATOLOGY Eosinophils 0.3 0.0 - 4.0 04/08/2020 [facility] HEMATOLOGY Basophils 0.4 0.0 - 1.0 04/08/2020 [facility] HEMATOLOGY Neutrophils # 6.1 1.5 - 8.1 04/08/2020 [facility] HEMATOLOGY Lymphocytes # 0.8 1.0 - 5.5 04/08/2020 [facility] HEMATOLOGY Monocytes # 0.4 0.0 - 0.8 04/08/2020 [facility] URINE AND STOOL POC UA Color Yellow *NA* (04/04/20 2:09 PM) Yellow 04/04/2020 [facility] URINE AND STOOL POC UA Turbidity Clear *NA* (04/04/20 2:09 PM) Clear 04/04/2020 [facility] URINE AND STOOL POC UA SG 1.015 <=1.030 04/04/2020 [facility] URINE AND STOOL POC UA pH 6.0 5.0 - 8.0 04/04/2020 [facility] URINE AND STOOL POC UA Prot Negative mg/dL Negative mg/dL 04/04/2020 [facility] URINE AND STOOL POC UA Glu 250 mg/dL Negative mg/dL 04/04/2020 [facility] URINE AND STOOL POC UA Ket Negative mg/dL Negative mg/dL 04/04/2020 [facility] URINE AND STOOL POC UA Bili Negative *NA* (04/04/20 2:09 PM) Negative 04/04/2020 [facility] URINE AND STOOL POC UA Bld Negative *NA* (04/04/20 2:09 PM) Negative 04/04/2020 [facility] URINE AND STOOL POC UA Uro 0.2 0.1 - 1.0 04/04/2020 [facility] URINE AND STOOL POC UA Nit Negative *NA* (04/04/20 2:09 PM) Negative 04/04/2020 [facility] URINE AND STOOL POC UA LeukEst Trace *ABN* (04/04/20 2:09 PM) Negative 04/04/2020 [facility] IMMUNOLOGY Coronavirus (COVID-19) NA A Not Detected (04/04/20 10:15 AM) Not Detected 04/04/2020 [facility] BLOOD BANK RESULTS ABO/Rh O POS 04/03/2020 [facility] BLOOD BANK RESULTS Antibody Scrn Negative (04/03/20 2:17 PM) 04/03/2020 [facility] CHEM PANEL B/C Ratio 41 6 - 25 04/03/2020 [facility] CHEM PANEL Total Protein 6.5 6.4 - 8.4 04/03/2020 [facility] CHEM PANEL Albumin Lvl 3.3 3.5 - 5.0 04/03/2020 [facility] CHEM PANEL Globulin 3.2 2.7 - 4.2 04/03/2020 [facility] CHEM PANEL A/G Ratio 1.0 0.7 - 1.6 04/03/2020 [facility] CHEM PANEL ALT 25 0 - 65 04/03/2020 [facility] CHEM PANEL AST 17 0 - 37 04/03/2020 [facility] CHEM PANEL Alk Phos 105 39 - 136 04/03/2020 [facility] CHEM PANEL Bili Total 0.5 0.2 - 1.3 04/03/2020 [facility] HEMATOLOGY WBC 7.9 3.7 - 10.4 04/03/2020 [facility] HEMATOLOGY RBC 4.91 4.70 - 6.10 04/03/2020 [facility] HEMATOLOGY Hgb 13.5 14.0 - 18.0 04/03/2020 [facility] HEMATOLOGY Hct 42.7 42.0 - 54.0 04/03/2020 [facility] HEMATOLOGY MCV 86.8 80.0 - 94.0 04/03/2020 [facility] HEMATOLOGY MCH 27.4 27.0 - 31.0 04/03/2020 [facility] HEMATOLOGY MCHC 31.6 32.0 - 36.0 04/03/2020 [facility] HEMATOLOGY RDW 19.5 11.5 - 14.5 04/03/2020 [facility] HEMATOLOGY Platelet 184 133 - 450 04/03/2020 [facility] HEMATOLOGY MPV 7.7 7.4 - 10.4 04/03/2020 [facility] HEMATOLOGY R-time 5.0 5.0 - 10.0 04/03/2020 [facility] HEMATOLOGY K-time 1.4 1.0 - 3.0 04/03/2020 [facility] HEMATOLOGY Angle 67.5 53.0 - 72.0 04/03/2020 [facility] HEMATOLOGY Max Amp 65.7 50.0 - 70.0 04/03/2020 [facility] HEMATOLOGY G-value 9.6 4.5 - 11.0 04/03/2020 [facility] HEMATOLOGY Ly30 0.0 0.0 - 7.5 04/03/2020 [facility] HEMATOLOGY Coag Index 1.6 -3.0-3.0 - 3.0 04/03/2020 [facility] HEMATOLOGY TEG Data See N ote (04/03/20 2:17 PM) 04/03/2020 [facility] HEMATOLOGY TEG Interp Throm belastograph results are within reference ranges. These indicate adequate hemostasis. Note that TEG does not show effect of NSAIDs or P2Y12 inhibitors. CPT:87434 04/03/2020 [facility] HEMATOLOGY Neutrophils # 6.6 1.5 - 8.1 04/03/2020 [facility] HEMATOLOGY Lymphocytes # 0.6 1.0 - 5.5 04/03/2020 [facility] HEMATOLOGY Monocytes # 0.5 0.0 - 0.8 04/03/2020 [facility] HEMATOLOGY Eosinophils # 0.1 0.0 - 0.5 04/03/2020 [facility] HEMATOLOGY Segs 83.0 45.0 - 75.0 04/03/2020 [facility] HEMATOLOGY Bands 0.0 0.0 - 11.0 04/03/2020 [facility] HEMATOLOGY Lymphocytes 8.0 20.0 - 40.0 04/03/2020 [facility] HEMATOLOGY Monocytes 6.0 2.0 - 12.0 04/03/2020 [facility] HEMATOLOGY Eosinophils 1.0 0.0 - 4.0 04/03/2020 [facility] HEMATOLOGY Metamyelocytes 1.0 0.0 - 1.0 04/03/2020 [facility] HEMATOLOGY Myelocytes 1.0 <=0.0 % 04/03/2020 [facility] HEMATOLOGY Atypical Lymphs 0.0 <=0.0 % 04/03/2020 [facility] HEMATOLOGY NRBC 1 04/03/2020 [facility] HEMATOLOGY Plt Morph Kay l (04/03/20 2:17 PM) Normal 04/03/2020 [facility] HEMATOLOGY Anisocyte 1+ *ABN* (04/03/20 2:17 PM) None Seen 04/03/2020 [facility] HEMATOLOGY Polychrom Slight 04/03/2020 [facility] IMMUNOLOGY C-REACTIVE PROTEIN 23.6 <=2.9 mg/L 04/03/2020 [facility] SPECIAL CHEMISTRY Hgb A1C 8.1 <=5.6 % 04/03/2020 [facility] HEMATOLOGY PT 13.6 12.0 - 14.7 11/10/2019 [facility] HEMATOLOGY INR 1.04 0.85 - 1.17 11/10/2019 [facility] HEMATOLOGY PTT 25.1 22.9 - 35.8 11/10/2019 [facility] BLOOD BANK RESULTS ABO/Rh O POS 11/10/2019 [facility] BLOOD BANK RESULTS Antibody Scrn Negative (11/10/19 10:59 AM) 11/10/2019 [facility] BLOOD BANK RESULTS RBC product Product available (11/10/19 10:59 AM) 11/10/2019 [facility] CHEM PANEL Glucose Lvl 168 70 - 99 11/10/2019 [facility] CHEM PANEL BUN 49 7 - 22 11/10/2019 [facility] CHEM PANEL Creatinine Lvl 1.51 0.50 - 1.40 11/10/2019 [facility] CHEM PANEL Sodium Lvl 138 135 - 145 11/10/2019 [facility] CHEM PANEL Potassium Lvl 3.4 3.5 - 5.1 11/10/2019 [facility] CHEM PANEL Chloride Lvl 93 95 - 109 11/10/2019 [facility] CHEM PANEL CO2 36 24 - 32 11/10/2019 [facility] CHEM PANEL Calcium Lvl 8.8 8.5 - 10.5 11/10/2019 [facility] CHEM PANEL AGAP 12.4 10.0 - 20.0 11/10/2019 [facility] CHEM PANEL eGFR 45 11/10/2019 Result Comment: [...] should be multiplied by the estimated BMI. [facility] CHEM PANEL Magnesium Lvl 2.1 1.8 - 2.4 11/10/2019 [facility] HEMATOLOGY Segs 88.7 45.0 - 75.0 11/10/2019 [facility] HEMATOLOGY Lymphocytes 6.8 20.0 - 40.0 11/10/2019 [facility] HEMATOLOGY Monocytes 4.4 2.0 - 12.0 11/10/2019 [facility] HEMATOLOGY Basophils 0.1 0.0 - 1.0 11/10/2019 [facility] HEMATOLOGY Neutrophils # 9.3 1.5 - 8.1 11/10/2019 [facility] HEMATOLOGY Lymphocytes # 0.7 1.0 - 5.5 11/10/2019 [facility] HEMATOLOGY Monocytes # 0.5 0.0 - 0.8 11/10/2019 [facility] HEMATOLOGY WBC 10.5 3.7 - 10.4 11/10/2019 [facility] HEMATOLOGY RBC 4.95 4.70 - 6.10 11/10/2019 [facility] HEMATOLOGY Hgb 12.4 14.0 - 18.0 11/10/2019 [facility] HEMATOLOGY Hct 39.2 42.0 - 54.0 11/10/2019 [facility] HEMATOLOGY MCV 79.2 80.0 - 94.0 11/10/2019 [facility] HEMATOLOGY MCH 25.1 27.0 - 31.0 11/10/2019 [facility] HEMATOLOGY MCHC 31.7 32.0 - 36.0 11/10/2019 [facility] HEMATOLOGY RDW 19.6 11.5 - 14.5 11/10/2019 [facility] HEMATOLOGY Platelet 213 133 - 450 11/10/2019 [facility] HEMATOLOGY MPV 8.1 7.4 - 10.4 11/10/2019 [facility] CHEM PANEL Glucose Lvl 115 70 - 99 10/17/2019 [facility] CHEM PANEL BUN 51 7 - 22 10/17/2019 [facility] CHEM PANEL Creatinine Lvl 1.65 0.50 - 1.40 10/17/2019 [facility] CHEM PANEL Sodium Lvl 140 135 - 145 10/17/2019 [facility] CHEM PANEL Potassium Lvl 3.8 3.5 - 5.1 10/17/2019 [facility] CHEM PANEL Chloride Lvl 99 95 - 109 10/17/2019 [facility] CHEM PANEL CO2 40 24 - 32 10/17/2019 Result Comment: Critical Result(s) called to Shavon Hawkins at 10/16/2019 18:26 by . Read back OK. [facility] CHEM PANEL AGAP 4.8 10.0 - 20.0 10/17/2019 [facility] CHEM PANEL Calcium Lvl 9.1 8.5 - 10.5 10/17/2019 [facility] CHEM PANEL eGFR 40 10/17/2019 Result Comment: [...] should be multiplied by the estimated BMI. [facility] HEMATOLOGY Neutrophils # 8.4 1.5 - 8.1 10/17/2019 [facility] HEMATOLOGY Lymphocytes # 1.5 1.0 - 5.5 10/17/2019 [facility] HEMATOLOGY Monocytes # 0.7 0.0 - 0.8 10/17/2019 [facility] HEMATOLOGY Segs 78.0 45.0 - 75.0 10/17/2019 [facility] HEMATOLOGY Bands 1.0 0.0 - 11.0 10/17/2019 [facility] HEMATOLOGY Lymphocytes 14.0 20.0 - 40.0 10/17/2019 [facility] HEMATOLOGY Monocytes 7.0 2.0 - 12.0 10/17/2019 [facility] HEMATOLOGY Atypical Lymphs 0.0 <=0.0 % 10/17/2019 [facility] HEMATOLOGY NRBC 1 10/17/2019 [facility] HEMATOLOGY Anisocyte 1+ *ABN* (10/16/19 6:05 PM) None Seen 10/17/2019 [facility] HEMATOLOGY Microcyte 1+ *ABN* (10/16/19 6:05 PM) None Seen 10/17/2019 [facility] HEMATOLOGY Polychrom Moder ate *ABN* (10/16/19 6:05 PM) None Seen 10/17/2019 [facility] HEMATOLOGY Toxic Gran slight 10/17/2019 [facility] HEMATOLOGY Large Plt slight 10/17/2019 [facility] HEMATOLOGY WBC 10.6 3.7 - 10.4 10/17/2019 [facility] HEMATOLOGY RBC 4.67 4.70 - 6.10 10/17/2019 [facility] HEMATOLOGY Hgb 11.5 14.0 - 18.0 10/17/2019 [facility] HEMATOLOGY Hct 36.7 42.0 - 54.0 10/17/2019 [facility] HEMATOLOGY MCV 78.6 80.0 - 94.0 10/17/2019 [facility] HEMATOLOGY MCH 24.5 27.0 - 31.0 10/17/2019 [facility] HEMATOLOGY MCHC 31.2 32.0 - 36.0 10/17/2019 [facility] HEMATOLOGY RDW 18.7 11.5 - 14.5 10/17/2019 [facility] HEMATOLOGY Platelet 191 133 - 450 10/17/2019 [facility] HEMATOLOGY MPV 7.7 7.4 - 10.4 10/17/2019 [facility] HEMATOLOGY PTT 26.9 22.9 - 35.8 10/17/2019 [facility] HEMATOLOGY PT 15.1 12.0 - 14.7 10/17/2019 [facility] HEMATOLOGY INR 1.18 0.85 - 1.17 10/17/2019 [facility] URINE AND STOOL POC UA Bld Trace *NA* (05/18/19 12:35 PM) Negative 05/18/2019 [facility] URINE AND STOOL POC UA Bili Negative *NA* (05/18/19 12:35 PM) Negative 05/18/2019 [facility] URINE AND STOOL POC UA Ket Negative mg/dL Negative mg/dL 05/18/2019 [facility] URINE AND STOOL POC UA Uro 0.2 0.1 - 1.0 05/18/2019 [facility] URINE AND STOOL POC UA Nit Positive *ABN* (05/18/19 12:35 PM) Negative 05/18/2019 [facility] URINE AND STOOL POC UA LeukEst Small *ABN* (05/18/19 12:35 PM) Negative 05/18/2019 [facility] URINE AND STOOL POC UA Color Yellow *NA* (05/18/19 12:35 PM) Yellow 05/18/2019 [facility] URINE AND STOOL POC UA Turbidity Clear *NA* (05/18/19 12:35 PM) Clear 05/18/2019 [facility] URINE AND STOOL POC UA SG 1.015 <=1.030 05/18/2019 [facility] URINE AND STOOL POC UA Glu Negative mg/dL Negative mg/dL 05/18/2019 [facility] URINE AND STOOL POC UA pH 6.5 5.0 - 8.0 05/18/2019 [facility] URINE AND STOOL POC UA Prot Negative mg/dL Negative mg/dL 05/18/2019 [facility] CHEM PANEL eGFR 55 06/24/2016 Result [...] should be multiplied by the estimated BMI. [facility] CHEM PANEL POC Creatinine 1.3 0.5 - 1.4 06/24/2016 [facility] CHEM PANEL eGFR 55 04/10/2016 [...] should be multiplied by the estimated BMI. [facility] CHEM PANEL POC Creatinine 1.3 0.5 - 1.4 04/10/2016 [facility] Pathology Reports No Data Provided [...] 2017 Jeremi Combs MD On 04/17/2020 09:38:05; [id number] 04/16/2020 [facility] Spine Thoracic wo contrast MRI Findings of prominent epidural fat from T4-T9 with mild compression of the thoracic spinal cord from T4-T8 discussed with Dr. Salmon via telephone on 04/16/2020 at 12:10 a.m. central time. Momo Bangura MD On 04/16/2020 00:12:09; [id number] PROCEDURE INFORMATION: Exam: MR Thoracic Spine Without [...] stenosis. Momo Bangura MD On 04/16/2020 00:02:15; [id number] 04/15/2020 [facility] Spine lumbar wo contrast MRI [...] L5-S1. Skylar Rodas MD On 04/15/2020 23:48:44; [id number] 04/15/2020 [facility] Abdomen AP DX PROCEDURE INFORM [...] pelvis. Garry Lira MD On 04/14/2020 16:07:32; [id number] 04/14/2020 [facility] Retroperitoneal Complete US ME OCEDURE INFORMATION: Exam: US Retroperitoneal; Complete; Kidneys [...] imaging. Jose Rojo DO On 04/13/2020 17:11:56; [id number] 04/13/2020 [facility] 1view DX PROCEDURE INFOR MATION: Exam: [...] Steward MD On 04/13/2020 10:40:11; [id number] 04/13/2020 [facility] 1 v for Placement DX EXA [...] fracture deformities in the left hemithorax. 04/11/2020 [facility] Chest 2 views DX EXAM: XR CHES [...] 2. Mild bibasilar subsegmental atelecta sis. 04/03/2020 [facility] Spine Thoracic wo contrast MRI PROCEDURE INFORMATION: [...] exam. Nate Baig MD On 02/03/2020 10:12:14; [id number] 02/02/2020 [facility] Spine lumbar wo contrast MRI [...] study. Nate Baig MD On 02/03/2020 09:39:50; [id number] 02/02/2020 [facility] Bone Density DXA [employer] MA MALE BONE DENSITY ASSESSMENT: 07/23/2019 CLINICAL DATA: Clinical risk for osteoporosis. 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 This exam was interpreted at [id number] for JOVI Pyle, 15. 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 SL: [id number] 12/04/2017 [facility] Spine cervical wo contrast MRI [...] foraminal narrowing, left greater than right. SL: [id number] 12/04/2017 [facility] w pelvis and [...] nerve sheath tumor, or epidermoid cyst. SL: [id number] 06/24/2016 [facility] Spine lumbar w/wo contrast MRI Patient Name: STEVE BENEDICT : 1945; Age: 70 years y/o Male MR: [id number] Study: Spine lumbar w/wo contrast MRI 06/24/2016 [...] compatible with acute on chronic denervation. SL: [id number] 06/24/2016 [facility] Spine thoracic wo contrast CT [...] No acute abnormalities are visualized . SL:06/19/2016 [facility] lumbar wo contrast CT CT THORACIC [...] No acute abnormalities are visualized . SL:06/19/2016 [facility] cervical 2 or 3 view DX [...] 2. No acute fracture or malalignment. 04/23/2016 [facility] Spine Thoracic w/wo contrast MRI MRI THORACIC [...] multip le bilateral renal cysts. SL:16 04/10/2016 [facility] Spine lumbar w/wo contrast MRI [...] smoking and anemia among other etiologies. SL: [id number] 03/28/2016 [facility] Consultation Notes No Data Provided for This Section Discharge Summaries No Data Provided for This Section History and Physicals No Data Provided for This Section Vital Signs Vital Sign Value Date Comments Source Temperature Oral (F) 98 F 04/20/2020 [facility] Heart Rate 93 04/20/2020 [facility] Respitory Rate 18 04/20/2020 [facility] Systolic (mm Hg) 120 04/20/2020 [facility] Diastolic (mm Hg) 79 04/20/2020 [facility] Temperature Oral (F) 97.9 F 04/20/2020 [facility] Heart Rate 96 04/20/2020 [facility] Systolic (mm Hg) 135 04/20/2020 [facility] Diastolic (mm Hg) 90 04/20/2020 [facility] Respitory Rate 18 04/20/2020 [facility] Temperature Oral (F) 98.0 F 04/20/2020 [facility] Heart Rate 80 04/20/2020 [facility] Systolic (mm Hg) 135 04/20/2020 [facility] Diastolic (mm Hg) 89 04/20/2020 [facility] Respitory Rate 18 04/20/2020 [facility] Height 175.26 cm 04/14/2020 [facility] Weight 107.004 04/14/2020 [facility] BMI Calculated 34.84 04/14/2020 [facility] Height 175.26 cm 04/13/2020 [facility] BMI Calculated 32.26 04/13/2020 [facility] Weight 99.091 04/13/2020 [facility] Temperature Oral (F) 97.9 F 04/13/2020 [facility] Heart Rate 64 04/13/2020 [facility] Respitory Rate 16 04/13/2020 [facility] Systolic (mm Hg) 105 04/13/2020 [facility] Diastolic (mm Hg) 60 04/13/2020 [facility] Systolic (mm Hg) 97 04/12/2020 [facility] Diastolic (mm Hg) 63 04/12/2020 [facility] Temperature Oral (F) 97.0 F 04/12/2020 [facility] Heart Rate 68 04/12/2020 [facility] Respitory Rate 20 04/12/2020 [facility] Systolic (mm Hg) 95 04/12/2020 [facility] Diastolic (mm Hg) 53 04/12/2020 [facility] Temperature Oral (F) 98.1 F 04/12/2020 [facility] Heart Rate 89 04/12/2020 [facility] Respitory Rate 20 04/12/2020 [facility] Height 175.26 cm 04/07/2020 [facility] Weight 99.091 04/07/2020 [facility] BMI Calculated 32.26 04/07/2020 [facility] Height 175.26 cm 04/07/2020 [facility] Weight 99.2 04/07/2020 [facility] Height 175.26 cm 04/07/2020 [facility] Weight 99.2 04/07/2020 [facility] BMI Calculated 32.3 04/07/2020 [facility] Height 175.26 cm 04/04/2020 [facility] Weight 98.324 04/04/2020 [facility] BMI Calculated 32.01 04/04/2020 [facility] BMI Calculated 31.97 04/03/2020 [facility] Respitory Rate 15 11/11/2019 [facility] Systolic (mm Hg) 110 11/11/2019 [facility] Diastolic (mm Hg) 70 11/11/2019 [facility] Respitory Rate 19 11/11/2019 [facility] Systolic (mm Hg) 146 11/11/2019 [facility] Diastolic (mm Hg) 86 11/11/2019 [facility] Respitory Rate 23 11/11/2019 [facility] Systolic (mm Hg) 113 11/11/2019 [facility] Diastolic (mm Hg) 68 11/11/2019 [facility] Temperature Oral (F) 97.6 F 11/10/2019 [facility] Height 175.26 cm 11/10/2019 [facility] Weight 94.091 11/10/2019 [facility] BMI Calculated 30.63 11/10/2019 [facility] Respitory Rate 18 10/17/2019 [facility] Systolic (mm Hg) 135 10/17/2019 [facility] Diastolic (mm Hg) 72 10/17/2019 [facility] Systolic (mm Hg) 129 10/17/2019 [facility] Diastolic (mm Hg) 75 10/17/2019 [facility] Respitory Rate 18 10/17/2019 [facility] Temperature Oral (F) 98.4 F 10/17/2019 [facility] Systolic (mm Hg) 150 10/17/2019 [facility] Diastolic (mm Hg) 89 10/17/2019 [facility] Respitory Rate 18 10/17/2019 [facility] Temperature Oral (F) 98.0 F 10/17/2019 [facility] Heart Rate 95 10/16/2019 [facility] Temperature Oral (F) 98.4 F 10/16/2019 [facility] Height 175.26 cm 06/02/2019 [facility] Weight [...] Provider ADM Date DC Date Status Source [facility] [place] Outpt Diag Services [id number] 00 Monique Reed 03/06/2016 03/07/2016 [facility] Outpatient [id number] Christopher Summers 03/28/2016 03/29/2016 [facility] Outpatient Imaging - [place] Outpt Diag Services [id number] Angel Martínez 04/02/2016 04/03/2016 [facility] Outpatient [id number] Elida Valenzuela 04/10/2016 04/11/2016 [facility]patient [facility] - [place] Outpt Diag Services [id number] 01 Monique Reed 04/23/2016 04/24/2016 [facility] Outpatient [id number] NEIL DANIEL 06/06/2016 [facility] Outpatient [id number] Neil Daniel Jr 06/19/2016 06/20/2016 [facility] Outpatient [id number] Neil Daniel Jr 06/24/2016 06/25/2016 [facility] Outpatient [id number] NEIL DANIEL 07/11/2016 Active [facility] Outpatient Imaging - [place] Outpt Diag Services [id number] Mila Jones 04/23/2017 04/24/2017 [facility] [place] [facility] Outpatient [id number] Oleksandr Uriarteanali 12/05/2017 12/05/2017 [facility] [place] Phone Message [id number] 11/04/1911/06/2018 [facility] Outpatient [id number] CARLA REYNAGA 11/30/2018 Active [facility] [id number] Carla Reynaga 11/30/2018 12/01/2018 [facility] Outpatient [id number] URODYNAMICS 12/16/2018 Active [facility] Outpatient [id number] CARLA REYNAGA 12/22/2018 Active [facility] Outpatient Imaging - [place] Outpt Diag Services [id number] 03 Mila Jones 12/28/2018 12/29/2018 [facility] [place] Outpatient [id number] Carla Reynaga 02/02/2019 Active [facility] Outpatient [id number] Carla Reynaga 04/19/2019 Active [facility] Outpatient [id number] Carla Reynaga 04/19/2019 04/20/2019 [facility] Outpatient [id number] NURSE VISIT 04/21/2019 Active [facility] Ambulatory Pre-Reg [id number] Christopher Summers 04/21/2019 04/21/2019 [facility] Outpatient [id number] Carla Reynaga 05/04/2019 Active [facility] [id number] Christopher Summers 05/04/2019 05/04/2019 [facility] Ambulatory Pre-Reg [id number] Carla Reynaga 05/04/2019 05/04/2019 [facility] Outpatient [id number] - URODYNAMICS, 05/18/2019 Active [facility] Urology [facility] Outpatient [id number] Christopher Kristopher 05/18/2019 05/19/2019 [facility] Urology [facility] Ambulatory Pre-Reg [id number] Carla Reynaga 05/25/2019 05/25/2019 [facility] Outpatient [id number] MED_ASST VISIT 05/27/2019 Active [facility] [place] Outpatient [id number] Christopher Summers 05/27/2019 05/28/2019 [facility] Outpatient [id number] - URODYNAMICS, 06/01/2019 Active [facility] [place] Outpatient [id number] Christopher Summers 06/01/2019 06/02/2019 [facility] Outpatient [id number] Carla Reynaga 06/02/2019 Active [facility] [place] Outpatient [id number] Carla Reynaga 06/02/2019 06/03/2019 [facility] Outpatient [id number] - URODYNAMICS, 06/08/2019 Active [facility] Outpatient [id number] Carla Reynaga 06/14/2019 Active [facility] Outpatient Imaging - [place] Outpt Diag Services [id number] Mila Jones 07/23/2019 07/24/2019 [facility] [id number] Lucas Kennedycarrie 10/16/2019 10/17/2019 [facility] Inpatient [id number] Sheila Vásquez 11/10/2019 11/11/2019 [facility] Outpatient [id number] Morales Tolbert 02/02/2020 02/03/2020 [facility] Outpatient [id number] Carla Reynaga 02/03/2020 Active [facility] Outpatient [id number] Carla Reynaga 03/13/2020 Active [facility] Ambulatory Pre-Reg [id number] Carla Reynaga 03/13/2020 03/13/2020 [facility] Outpatient [id number] Carla Reynaga 04/04/[address] [facility] [place] Outpatient [id number] Carla Toñito 04/04/2020 04/05/2020 [facility] Inpatient [id number] Morales Tolbert 04/07/2020 04/13/2020 [facility] Inpatient [id number] Abdulaziz Tobin 04/13/2020 04/20/2020 [facility] Outpatient [id number] Carla [facility] 07/04/2020 Active [facility] Procedures Procedure Code Date Perfomer Comments Source Measurement of post-voiding residual uri ne and/or bladder capacity by ultrasound, non-imaging 24160 04/04/2020 [facility] Complex cystometrogram (ie, calibrated e lectronic equipment); with voiding pressure studies (ie, bladder voiding pressure), any technique [id number] 06/02/2019 [facility] Voiding pressure studies, intra-abdomina l (ie, rectal, gastric, intraperitoneal) (List separately in addition to code for primary procedure) [id number] 06/02/2019 [facility] uroflowmetry (eg, calibrated cecilia ctronic equipment) [id number] 06/02/2019 [facility] Electromyography studies (EMG) of anal o r urethral sphincter, other than needle, any technique [id number] 06/02/2019 [facility] Cystoscopy [id number] 08/25/2018 [facility], [facility] uroflowmetry [id number] 03/30/2018 [facility] [place],[facility] Catheter replacement [phone] [facility] [place],[facility] Fusion<sup>1</sup> [id number] cervical fusion done on 09/11/[address] Nilo Adames [facility] [place] Prostate manipulation [phone] [facility], [facility] [place] Stent replacement [id number] [facility], [facility] [place] Ablation [id number] [facility] Cataract surgery [id number] [facility] Colonoscopy [id number] [facility] Operation [id number] [facility] PCI - Percutaneous coronary intervention [phone] [facility] ,[facility] Assessment and Plan Assessment and [...] adjustments at this time. He may continue [place] 5/325mg q6h as needed. He is pending thoracic laminectomy once left elbow infection is cleared. We will continue to monitor pulmonary status. We will continue to follow and make adjustments as needed. We have provided a discharge prescription to the patient's pharmacy for [place] 5/325mg #10. 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 - home med: bumex 3 [...] while sleeping lovenox > 2 MNs 04/20/2020 [facility] Extracted from:Title: Infection Admissio n H&P * Author: Adan Nielsen MD Date: 04/12/20 Impression and Plan Open wound left elbow closed by Plastic Surgery Discussed plans with patient and all questions answered Vanco trough is therapeutic Vancomycin 1250 mg q24 h Rx for 14 days Monitor blood work Vanco trough ,CBC ,BMP ,UA weekly ,fax report to my office [phone] Call [phone] for an apt in 2 weeks Extracted from:Title: Infection Admission H&P * Author: Adan Nielsen MD Date: 04/07/20 Impression and Plan Open wound left elbow closed by Plastic Surgery No cultures To discuss antibiotic Rx regarding need and duration 04/13/2020 [facility] Extracted from:Title: EP Discharge Summa ry Author: Sheila Vásquez MD Date: 11/11/19 Discharge Plan Discharge Summary Plan Discharge Status: stable. Discharge instructions given: to patient. Discharge disposition: discharge to home. Prescriptions: continue same medications. Diagnosis Presence of Watchman left atrial appendage closure device (PNX15-SN Z95.818, Working, Medical). Presence of Watchman left atrial appendage closure device (YZC69-ND Z95.818, Working, Medical). 11/11/2019 [facility] Extracted from:Title: Burn Surgery Consu lt Note [...] Nilo Trejo MD PGY1 Urology/General Surgery MSO #[id number] [place] Phone x [phone] (Spect); Page [phone] 10/17/2019 [facility] Plan of Care No Data Provided for [...] SMOKING entered on: 04/14/20 1Quit smoking 201104/03/2020 [facility] Social History TypeResponse Alcohol Never Substance Abuse Use: None. Smoking Status Former smoker; Ready to change: No; Concerns about tobacco use in household: No; Exposure to Tobacco Smoke None; Cigarette Smoking Last 365 Days No; Reg Smoking Cessation Counseling No; Other Tobacco Frequency QUIT SMOKING entered on: 04/14/20 1Quit smoking 201104/03/2020 [facility] Social History TypeResponse Smoking Status Former smoker; [...]
--- OUTSIDE RECORDS SUMMARY | 2020-06-12 22:05 | XMS REPORT | Continuity of Care Document ---
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 [facility] Dulcolax Laxative 2020-04-07 13:51:00 No Notes: (Same As: Dulcolax, Bisco-Lax) [facility] Clonazepam 2020-04-07 13:51:00 No 0.5 mg, 1 tab, Route: PO, Drug form: TAB, BID, Dosing Weight 99.2, kg, PRN Anxiety, Start date: 04/07/20 8:51:00 CDT, Duration: 30 day, Stop date: 05/07/20 8:50:00 CDT, 0 [facility] Metolazone 5 MG Oral Tablet 2020-04-07 13:51:00 No Notes: (Same as: Zaroxolyn) [facility] Acetaminophen 2020-04-07 13:11:00 No Notes: Do not exceed 4 gm/day. (Same as: Tylenol) [facility] Acetaminophen 325 MG / Hydrocodone Bitartrate 10 MG Oral Tab let 2020-04-07 13:11:00 No Notes: Do not exceed 4gm/day of acetaminophen. (Same as: [place] 325/10) [facility] Hydromorphone 2020-04-07 13:11:00 No Notes: Same as Dilaudid [facility] Ondansetron 2020-04-07 13:11:00 No Notes: (Same as: Zofran) MEDICATION WASTE Product Size: 4 mg Product Wasted: ___ mg [facility] Saline Flush 0.9% 2020-04-07 13:11:00 No Notes: Same as: BD Posiflush Sterile [facility] Methadone 2020-04-07 12:42:00 No Notes: (Sa me as: Dolophine) [facility] Lactated Ringers Injection IV (ANES) 1000 mL 2020-04-07 12:34:00 No Route: IV, Total Volume: 1,000, Start date: 04/07/20 7:34:00 CDT, Stop date: 04/07/20 8:34:00 CDT [facility] 24 HR mirabegron 50 MG Extended Release Tablet [Myrbetriq] 2020-04-04 19:26:00 Yes 50 mg = 1 tab, PO, Daily, # 90 tab, 0 Refill(s), Pharmacy: [id number] see BecerrilBrian 2020-04-03 18:38:00 No 10 mg, PO, Q PM, 0 Refill(s) [facility] gabapentin 300 MG Oral Capsule 2020-04-03 18:33:00 No 300 mg = 1 cap, PO, QPM, # 90 cap, 1 Refill(s) Jimmy Doyle clonazePAM 0.5 mg oral tablet 2020-04-03 18:33:00 No 0.5 mg = 1 tab, PO, BID, PRN anxiety, # 60 tab, 0 Refill(s) Geoff Vivek methenamine hippurate 2020-04-03 18:10:00 No 25 gm, PO, QAM & PM, 0 Refill(s) Geoff [place] tamsulosin 0.4 mg oral capsule 2020-04-03 18:10:00 [...] TAB, Before Breakfast, Start date: 11/11/19 10:00:00 [employer], Duration: 30 day, Stop date: 12/11/19 7:30:00 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 200 ACTUAT Albuterol 0.09 MG/ACTUAT Metered Dose Inhaler [Pr oAir HFA] 2019-11-11 15:22:00 Yes 180 microgram = 2 puff, INHALATION, Daily, 0 Refill(s) [facility] [place] Oxygen 2019-11-11 15:22:00 Yes Oxygen, 1 btl, MISC, Bedtime, Refill(s) 0 [facility] ProAir HFA 2019-11-11 15:22:00 Yes ProAir HFA, 1 - 2 puffs, PO, Daily, Refill(s) 0 [facility] [place] Acetaminophen 300 MG / Codeine Phosphate 30 MG Oral Tablet 2019-11-11 15:22:00 Yes 1 tab, PO, Q6H, PRN Pain Score 7-10, # 30 tab, 0 Refill(s) [facility] 200 ACTUAT Albuterol 0.09 MG/ACTUAT Metered Dose Inhaler [Pr oAir HFA] 2019-11-11 15:00:00 No 180 microgram, 2 puff, Route: INHALATION, Drug Form: AERO/A, Dosing Weight 94.091, kg, Daily, Start date: 11/11/19 9:00:00 UTILITY [employer], Duration: 30 day, Stop date: 12/10/19 9:00:[address] [facility] ProAir HFA 2019-11-11 15:00:00 No ProAir HFA, 1 - 2 puffs, Route: PO, Daily, 11/11/19 9:00:00 UTILITY AIRCREW[employer], Duration: 30 day, Stop date: 12/10/19 9:00:00 UTILITY [employer]CRE[employer] [facility] Allopurinol 2019-11-11 15:00:00 No Notes: ( Same as: Zyloprim) [facility] Aspirin 81 MG Enteric Coated Tablet 2019-11-11 15:00:00 No Notes: Do not crush or chew. (Same As: Ecotrin) [facility] Bumetanide 2019-11-11 15:00:00 No Notes: (S abelardo As: Bumex) [facility] Vitamin D3 1000 intl units oral tablet 2019-11-11 15:00:00 No Notes: Same as : Vitamin D3 [facility] Clobetasol Propionate 0.0005 MG/MG Topical Ointment 11-11 15:00:00 No Notes: (clobetasol propionate 0.05% 15 gm top OIN) (Same As: Temovate) [facility] clopidogrel 2019-11-11 15:00:00 No Notes: ( Same As: Plavix) [facility] Colchicine 2019-11-11 15:00:00 No 0.6 mg, 1 tab, Route: PO, Drug form: TAB, Daily, Dosing Weight 94.091, kg, Start date: 11/11/19 9:00:00 UTILITY [employer], Duration: 30 day, Stop date: 12/10/19 9:00:00 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 "Do Not Crush" [facility] Metolazone 5 MG Oral Tablet 2019-11-11 15:00:00 No Notes: (Same as: Zaroxolyn) [facility] 24 HR mirabegron 50 MG Extended Release Tablet [Myrbetriq] 2019-11-11 15:00:00 No 50 mg, 1 t ab, Route: PO, Drug form: ERTAB, Daily, Dosing Weight 94.091, kg, Start date: 11/11/19 9:00:00 UTILITY [employer], Duration: 30 day, Stop date: 12/10/19 9:00:00 UTILITY AIRCREW[employer] [facility] Prednisone 2019-11-11 15:00:00 No Notes: (Same as: PredniSONE) Take with food. [facility] Xarelto 2019-11-11 15:00:00 No Notes: (Same as: Xarelto) Administer with food [facility] Sertraline 2019-11-11 15:00:00 No Notes: (S abelardo as: Zoloft) [facility] Budesonide 0.25 MG/ML Inhalant Solution 2019-11-11 14:00:00 No Notes: (Same As: Pulmicort) [facility] glimepiride 2019-11-11 14:00:00 No 1 mg, 1 tab, Route: PO, Drug form: TAB, Breakfast, Dosing Weight 94.091, kg, Start date: 11/11/19 8:00:00 UTILITY [employer], Duration: 30 day, Stop date: 12/10/19 8:00:00 UTILITY [employer]CREW[employer] [facility] Thyroxine 2019-11-11 12:30:00 No 100 microgram, 1 tab, Route: PO, Drug form: TAB, Q630AM, Dosing Weight 94.091, kg, Start date: 11/11/19 6:30:00 UTILITY AIRCREW[employer], Duration: 30 day, Stop date: 12/10/19 6:30:00 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, 0 [facility] Triiodothyronine 2019-11-11 12:30:00 No Notes: (Same as: Cytomel) [facility] Dilaudid 2019-11-11 10:46:00 No Notes: Same as Dilaudid [facility] Fentanyl 2019-11-11 10:15:00 No 25 microgram, Route: IV, ONCE, Dosing Weight 94.091, kg, Start date: 11/11/19 4:15:00 UTILITY AIRCREW[employer], Stop date: 11/11/19 4:15:00 UTILITY AIRCREW[employer] [facility] Saline Flush 0.9% 2019-11-11 03:00:00 No Notes: (Same as: BD Posiflush) [facility] Oxygen 2019-11-11 03:00:00 No Oxygen, 1 btl, Route: MISC, Bedtime, 11/10/19 21:00:00 UTILITY [employer]CREW[employer], Duration: 30 day, Stop date: 12/09/19 21:00:00 UTILITY [employer]CREW[employer] [facility] Folic Acid 2019-11-11 03:00:00 No 0.4 mg, 1 tab, Route: PO, Drug form: TAB, BID, Dosing Weight 94.091, kg, Start date: 11/10/19 21:00:00 UTILITY AIRCREW[employer], Duration: 30 day, Stop date: 12/10/19 9:00:00 UTILITY 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, 0 [facility] Pramipexole 2019-11-11 03:00:00 No 0.25 mg, 2 tab, Route: PO, Drug form: TAB, Bedtime, Dosing Weight 94.091, kg, Start date: 11/10/19 21:00:00 UTILITY AIRCREWMAN, Duration: 30 day, Stop date: 12/09/19 21:00:00 UTILITY AIRCREW[employer] [facility] ropinirole 2019-11-11 03:00:00 No 0.5 mg, Route: PO, Drug form: TAB, Bedtime, Dosing Weight 94.091, kg, Start date: 11/10/19 21:00:00 UTILITY AIRCREWMAN, Duration: 30 day, Stop date: 12/09/19 21:00:00 UTILITY AIRCREW[employer] [facility] Albuterol 0.83 MG/ML Inhalant Solution 2019-11-11 02:00:00 No Notes: SEE RT DOCUMENTATION (Same as: Proventil) [facility] latanoprost 2019-11-10 23:00:00 No Notes: Keep refrigerated. (Same as:Xalatan) Opened bottle may be stored at room temperature for 6 weeks [facility] 24 HR Metoprolol Tartrate 25 MG Extended Release Tablet [Top rol] 2019-11-10 23:00:00 No Notes: (Sa me as: Toprol XL) Do Not Crush 12.5 mg = 1/2 x 25 mg TAB [facility] Potassium Chloride 2019-11-10 23:00:00 No Notes: (Same as: K-Dur 20) "Do Not Crush" Give with food and full glass of water For patients unable to swallow tablet, dissolve in one half glass of water. Allow about 2 minutes for the tablets to disintegrate. Stir before giving to prepare slurry and administer. Please exclude Patient s with feeding tube less than 14 Spanish (Dobhoff, J-tube etc) and pediatric and patients. [facility] Alprazolam 0.5 MG Oral Tablet 2019-11-10 21:14:00 No Notes: With food or milk (Same as: Xanax) [facility]u Dulcolax Laxative 2019-11-10 21:14:00 No Notes: (Same As: Dulcolax, Bisco-Lax) [facility] acetaminophen-codeine #3 2019-11-10 21:13:00 No Notes: Do not exceed 4gm/day of acetaminophen. (Same as: Tylenol with Codeine # 3) [facility] Saline Flush 0.9% 2019-11-10 21:13:00 No Notes: (Same as: BD Posiflush) [facility] protamine (ANES) 2019-11-10 21:12:00 No Route: IV, Drug form: INJ, ONCE, Stop date: 11/10/19 15:12:00 [facility] glycopyrrolate (SURENDRAS) 2019-11-10 21:12:00 No Route: IV, Drug form: INJ, ONCE, Stop date: 11/10/19 15:12:[address] [facility] neostigmine (SURENDRAS) 2019-11-10 21:12:00 No Route: IV, Drug form: INJ, ONCE, Stop date: 11/10/19 15:12:[address] [facility] norepinephrine (SURENDRAS) 2019-11-10 20:39:00 No Route: IV, Drug form: INJ, ONCE, Stop date: 11/10/19 14:39:[address] [facility] heparin (ANES) 2019-11-10 20:39:00 No Route: IV, Drug form: INJ, ONCE, Stop date: 11/10/19 14:39:00 [employer]CRE[employer] [facility] propofol (ANES) 2019-11-10 20:34:00 No Route: IV, Drug form: INJ, ONCE, Stop date: 11/10/19 14:34:00 [employer] [facility] ceFAZolin (ANES) 2019-11-10 20:34:00 No Route: IV, Drug form: INJ, ONCE, Stop date: 11/10/19 14:34:00 [facility] [facility] lidocaine (ANES) 2019-11-10 20:18:00 No Route: IV, Drug form: INJ, ONCE, Stop date: 11/10/19 14:18:00 [facility] [facility] rocuronium (ANES) 2019-11-10 20:18:00 No Route: IV, Drug form: INJ, ONCE, Stop date: 11/10/19 14:18:00 UTILITY AIRCREWMAN [facility] [place] fentaNYL (ANES) 2019-11-10 20:18:00 No Route: IV, Drug form: INJ, ONCE, Stop date: 11/10/19 14:18:00 UTILITY AIRCREWMAN [facility] [place] Fentanyl 2019-11-10 19:56:00 No Notes: (Same as: Sublimaze) Preservative free. [facility] Hydromorphone 2019-11-10 19:56:00 No Notes: Same as Dilaudid [facility] Flumazenil 2019-11-10 19:56:00 No Notes: (S abelardo as: Romazicon) [facility] Naloxone 2019-11-10 19:56:00 No Notes: Same as Narcan [facility] Diphenhydramine 2019-11-10 19:56:00 No Notes: (Same as: Benadryl) [facility] Ondansetron 2019-11-10 19:56:00 No Notes: (Same as: Zofran) MEDICATION WASTE Product Size: 4 mg Product Wasted: ___ mg [facility] norepinephrine (FENG) 10 microgram 2019-11-10 19:51:00 No Route: IV, Drug form: INJ, Start date: 11/10/19 13:51:00 UTILITY AIRCREWMAN, Stop date: 11/10/19 14:51:00 UTILITY AIRCREW[employer] Geoff Doyle Sodium Chloride 0.9% IV (SURENDRA) 1000 mL 2019-11-10 19:29:00 No Route: IV, Total Volume: 1,000, Start date: 11/10/19 13:29:00 UTILITY AIRCREWMAN, Stop date: 11/10/19 14:29:00 UTILITY [employer]CREW[employer] Geoff Doyle methenamine hippurate 1 g oral [...] Total Volume: 1,000, Start date: 11/10/19 10:52:00 UTILITY AIRCREWMAN, Duration: 30 day, Stop date: 12/10/19 10:51:00 UTILITY AIRCREWMAN, 2.16, m2, 0 Memor ial Vivek Bacitracin 0.5 UNT/MG / Polymyxin B 10 UNT/MG Topical Ointme nt 2019-10-17 04:39:00 Yes 1 appl, TOP, QID, # 30 gm, 0 Refill(s) Geoff [place] Albuterol 0.83 MG/ML Inhalant Solution 2019-10-17 02:10:00 No Notes: SEE RT DOCUMENTATION (Same as: Madhuri) Geoff [place] Bacitracin 0.5 UNT/MG Topical Ointment 2019-10-17 00:58:00 No 1 appl, Route: TOP, ONCE, Drug form: OINT, Start date: 10/16/19 18:58:00 UTILITY AIRCREWMAN, Stop date: 10/16/19 18:58:00 UTILITY AIRCREWMAN, 0 Geoff Doyle 24 HR mirabegron 50 MG Extended Release Tablet [Myrbetriq] 2019-06-02 16:06:04 Yes 50 mg = 1 tab, PO, Daily, # 90 tab, 1 Refill(s), Pharmacy: [facility] #[id number] Midodrine Hcl 2.5 Mg Tablet, 10 Mg Oral Midodrine Hcl 2.5 Mg Tablet, 10 Mg Oral 2019-05-28 00:00:00 2019-06-16 00:00:00 No Samara Das [employer] 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 albuterol (PROAIR HFA,PROVENTIL HFA,VENTOLIN HFA) 90 mcg/act [...] 10 MG tablet 2019-05-11 13:46:42 Yes 10mg [id number] Take 10 mg by mouth 3 (three) [...] B-12, (VITAMIN B-12 ORAL) 2019-05-11 13:46:42 Yes [id number] Q7D Take 10,000 mcg by mouth once [...] Mg Cap 2019-05-04 00:00:00 Yes Samara Das [employer] Sales Representative .4 Bedtime [facility] Bumetanide 1 Mg Tablet, 4 Mg Oral Bumetanide 1 Mg Tablet, 4 Mg Oral 2019-05-04 00:00:00 2019-06-16 00:00:00 No Samara Das [employer] Sales Representative 4 Twice A Day [facility] Lidocaine Patch 1 Ea Patch, 1 Ea Topical Lidocaine Pat ch 1 Ea Patch, 1 Ea Topical 2019-05-04 00:00:00 2019-06-16 00:00:00 No Samara Das [employer] Representative 1 Q24h [facility] Metolazone 5 Mg Tablet, 5 Mg Oral Metolazone 5 Mg Tablet, 5 Mg Oral 2019-05-04 00:00:00 2019-06-16 00:00:00 No Samara Das [employer] Sales Representative 5 Daily [facility] allopurinol 300 mg oral tablet 2019-04-19 21:01:00 Yes 300 mg = 1 tab, PO, Daily, # 90 tab, 1 Refill(s) Me wanda Doyle methenamine hippurate 2019-04-19 21:01:00 Yes 1 gm, PO, Daily, 0 Refill(s) Geoff Doyle Dulcolax Laxative 2019-04-19 21:01:00 Yes = 1 supp, MD, Daily, PRN constipation, # 5 supp, 0 Refill(s) Jimmy rial [place] Colchicine 2019-04-19 21:01:00 Yes 0 .6 mg, PO, Daily, 0 Refill(s) Geoff Doyle Sucralfate (Carafate) 1 Gm Tablet, 1 Gm Oral Sucralfat e (Carafate) 1 Gm Tablet, 1 Gm Oral 2019-02-15 00:00:00 2019-08-05 00:00:00 No Samara Das [employer] Sales Representative 1 Before Meals [facility] Fosfomycin 33.3 MG/ML Oral Suspension [Monurol] 2018-12-03 14:58 :00 Yes = 1 Pack, PO, ONCE, # 3 gm, 0 Refill(s), Pharmacy: [facility] [id number] Geoff Doyle Hydrochlorothiazide 50 MG / Spironolactone [...] [Hyper-Lamine] 2018-11-30 20:00:00 Yes PRN, 0 Refill(s) [facility] Vivek Oxygen 2018-11-30 20:00:00 Yes 1 btl, MISC, Bedtime, # 1 btl, 0 Refill(s) [facility] pantoprazole 40 mg oral enteric coated tablet 2018-11-30 20:00:0 0 Yes 40 mg = 1 tab, PO, Daily, # 30 tab, 0 Refill(s) [facility] Potassium Chloride 2018-11-30 20:00:00 Yes 20 mEq, BID, 0 Refill(s) [facility] pramipexole 0.125 mg oral tablet 2018-11-30 20:00:00 Yes 0.125 mg = 1 tab, PO, Bedtime, # 30 tab, 1 Refill(s) Geoff Doyle 200 ACTUAT Albuterol 0.09 MG/ACTUAT Metered Dose Inhaler [Pr oAir HFA] 2018-11-30 20:00:00 Yes 2 puff, INHALATION , Daily, 0 Refill(s) [facility] non-formulary 2018-11-30 20:00:00 Yes RAPATHA INJECTION 140MG Q2WEEK, Refill(s) 0 [facility] rOPINIRole 0.5 mg oral tablet 2018-11-30 20:00:00 Yes 0.5 mg = 1 tab, PO, Bedtime, # 30 tab, 1 Refill(s) [facility] sertraline 50 mg oral tablet 2018-11-30 20:00:00 Yes 50 mg = 1 tab, PO, Daily, # 30 tab, 0 Refill(s) Zena Doyle rivaroxaban 15 MG Oral Tablet [Xarelto] 2018-11-30 20:00:00 Yes 15 mg = 1 tab, PO, Daily, # 90 tab, 3 Refill(s) [facility] Aspirin 81 MG Enteric Coated Tablet 2018-11-30 20:00:00 Yes 81 mg = 1 tab, PO, Daily, # 90 tab, 3 Refill(s) [facility] Folic Acid 2018-11-30 20:00:00 Yes 400 MCG, BID, 0 Refill(s) [facility] Mucus Relief DM 2018-11-30 20:00:00 Yes PO, BID, 0 Refill(s) [facility] Vitamin B12 Methylcobalamin 2018-11-30 20:00:00 Yes SL, qWeek, 0 Refill(s) [facility] Vitamin D3 2000 intl units oral capsule 2018-11-30 20:00:00 Yes 2,000 IntlUnit = 1 cap, PO, Daily, # 100 cap, 3 Refill(s) [facility] 24 HR mirabegron 50 MG Extended Release Tablet [Myrbetriq] 2018-11-05 15:12:29 Yes See Instru ctions, TAKE 1 TABLET BY MOUTH EVERY DAY, # 90 tab, 0 Refill(s), Pharmacy: [facility], please have patient call for appt prior to next refill [facility] Azithromycin (Zithromax) 500 Mg Tablet, 500 Mg Oral Az ithromycin (Zithromax) 500 Mg Tablet, 500 Mg Oral 2018-09-16 00:00:00 2018-11-05 00:00:00 No Samara Das [employer] 500 Daily [facility] Sulfamethoxazole/Trimethoprim (Bactrim Ds Tablet) 1 Ea ch Tablet, 1 Each Oral Sulfamethoxazole/Trimethoprim (Bactrim Ds Tablet) 1 Each Tablet, 1 Each Oral 2018-09-16 00:00:00 2018-11-05 00:00:00 No Samara Das [employer] Sales Representative 1 Twice A Day [facility] Metoprolol Tartrate (Lopressor) 25 Mg Tab Metoprolol T artrate (Lopressor) 25 Mg Tab 2017-06-11 00:00:00 Yes 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 [employer] Representative 25 Every 12 Hours [facility] Furosemide 40 Mg Tablet, 80 Mg Oral Furosemide 40 Mg Tablet, 80 Mg Oral 2017-06-11 00:00:00 2019-01-09 00:00:00 No 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 [employer] Representative 80 Bid@18 [facility] Azithromycin (Z-Asad) 250 Mg Tablet, 500 Mg Oral Azithr omycin (Z-Asad) 250 Mg Tablet, 500 Mg Oral 2017-06-11 00:00:00 2018-09-13 00:00:00 No 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 [employer] Sales Representative 500 Daily [facility] Docusate Sodium (Colace) 100 Mg Capsule, 100 Mg Oral D ocusate Sodium (Colace) 100 Mg Capsule, 100 Mg Oral 2017-06-11 00:00:00 2018-09-13 00:00:00 Val Mckeon [employer] Sales Representative 100 Three Times A Day [facility] Polyethylene Glycol 3350 (Miralax) 17 Gm Powd.pack, 17 Gm Oral Polyethylene Glycol 3350 (Miralax) 17 Gm Powd.pack, 17 Gm Oral 2017-06-11 00:00:00 2017 00:00:00 Val Mckeon [employer] Representative 17 Twice A Day [facility] Prednisone 20 Mg Tab, 40 Mg Oral Prednisone 20 Mg Tab, 40 Mg Oral 2017-06-11 00:00:00 2018-09-13 00:00:00 Val Mckeon [employer] 40 Daily [facility] Warfarin Sodium (Coumadin) 5 Mg Tablet, 5 Mg Oral Warf rory Sodium (Coumadin) 5 Mg Tablet, 5 Mg Oral 2017-06-11 00:00:00 2018-09-13 00:00:00 Val Mckeon [employer] Sales Representative 5 Daily At 1700 [facility] Albuterol Sulfate 0.63 Mg/3 Ml Vial.neb Albuterol Sulfate 0. 63 Mg/3 Ml Vial.neb Yes .83 Twice A Day [facility] Albuterol Sulfate (Proair Hfa Inhaler*) 8.5 Gm Inh Alb uterol Sulfate (Proair Hfa Inhaler*) 8.5 Gm Inh Yes 2 Daily [facility] Alcomethasone Dipror Alcomethasone Dipror Yes .05 Daily [facility] Allopurinol 300 Mg Tablet Allopurinol 300 Mg Tablet Yes 300 Bedtime [facility] Alprazolam 0.5 Mg Tablet Alprazolam 0.5 Mg Tablet Yes .5 As Needed [facility] Aspirin (Aspir 81) 81 Mg Tablet. Aspirin (Aspir 81) 81 Mg Tablet. Yes 1 Daily [facility] Bisacodyl (Dulcolax) 5 Mg Tablet. Bisacodyl (Dulcolax) 5 Mg Tablet. Yes 5 Daily [facility] Budesonide 0.5 Mg/2 Ml Ampul.neb Budesonide 0.5 Mg/2 Ml Ampul.neb Yes 2 Twice A Day [facility] Bumetanide 1 Mg Tablet Bumetanide 1 Mg Tablet Yes 1 Twice A Day [facility] Cholecalciferol (Vitamin D3) (Vitamin D3) 1,000 Unit C apsule Cholecalciferol (Vitamin D3) (Vitamin D3) 1,000 Unit Capsule Yes 1000 Daily [facility] Clobetasol Propionate 1 Ea/15 Gm Cr Clobetasol Propionate 1 Ea/15 Gm Cr Yes 1 Daily [facility] Clonazepam 0.5 Mg Tablet Clonazepam 0.5 Mg Tablet Yes .25 Bedtime as needed for Sleep [facility] Clopidogrel Bisulfate (Clopidogrel) 75 Mg Tablet Clopi dogrel Bisulfate (Clopidogrel) 75 Mg Tablet Yes 75 Daily [facility] Colchicine (Colcrys) 0.6 Mg Tablet Colchicine (Colcrys) 0.6 Mg Tablet Yes .6 Daily as needed for Mild Pain (1-3) Or Fever>10 0.8 [facility] Cyanocobalamin (Vitamin B-12) (Vitamin B-12) 1,000 Mcg Tab.subl Cyanocobalamin (Vitamin B-12) (Vitamin B-12) 1,000 Mcg Tab.subl Yes 1 000 .weekly [facility] Folic Acid 1 Mg Tablet Folic Acid 1 Mg Tablet Yes 400 Twice A Day [facility] Guaifenesin (Mucus Relief) 400 Mg Tablet Guaifenesin ( Mucus Relief) 400 Mg Tablet Yes 1 Twice A Day as needed for Nasal Congestion [facility] Hydromorphone Hcl 8 Mg Tablet Hydromorphone Hcl 8 Mg Tablet Yes 8 Daily as needed for Severe Pain (7-10) [facility] Hydromorphone/Bupiv/0.9NACL/Pf (Hydromor -Bupiva 10 Mcg-0.0625%) 100 Ml Pump.resvr Hydromorphone/Bupiv/0.9NACL/Pf (Hydromor -Bupiva 10 Mcg-0.0625%) 100 Ml Pump.resvr Yes 1 Daily [facility] Latanoprost 2.5 Ml Drops Latanoprost 2.5 Ml Drops Yes 1 Bedtime [facility] Levofloxacin (Levaquin) 500 Mg Tablet Levofloxacin (Levaquin) 500 M g Tablet Yes 750 Daily [facility] Levothyroxine Sodium 50 Mcg Tablet Levothyroxine Sodium 50 Mcg Tablet Yes 100 Daily [facility] Liothyronine Sodium 5 Mcg Tablet Liothyronine Sodium 5 Mcg Tablet Yes 5 Every Morning [facility] Methenamine Hippurate 1 Gm Tablet Methenamine Hippurate 1 Gm Tablet Yes 1 Daily [facility] Metolazone 5 Mg Tablet Metolazone 5 Mg Tablet Yes 5 Daily as needed for Elevated Blood Pressure [facility] Mirabegron (Myrbetriq) 50 Mg Tab.er.24h Mirabegron (Myrbetri q) 50 Mg Tab.er.24h Yes 50 Daily [facility] Potassium Chloride 20 Meq Tab.er.prt Potassium Chloride 20 Meq Tab. er.prt Yes 20 Twice A Day [facility] Pramipexole Di-Hcl (Pramipexole Dihydrochloride) 0.25 Mg Tablet Pramipexole Di- Hcl (Pramipexole Dihydrochloride) 0.25 Mg Tablet Yes . 25 Bedtime [facility] Prednisone 20 Mg Tab Prednisone 20 Mg Tab Yes 20 Daily [facility] Psyllium Husk (Wal-Mucil) 0.52 Gm Capsule Psyllium Hus k (Wal-Mucil) 0.52 Gm Capsule Yes 1 Daily [facility] Rivaroxaban (Xarelto) 15 Mg Tablet Rivaroxaban (Xarelto) 15 Mg Tablet Yes 15 Daily [facility] Ropinirole Hcl 0.25 Mg Tablet Ropinirole Hcl 0.25 Mg Tablet Yes .5 Bedtime [facility] Sertraline Hcl 50 Mg Tablet Sertraline Hcl 50 Mg Tablet Yes 50 Bedtime [facility] Sodium Chloride For Inhalation (Hyper-Lamine) 4 Ml Vial.n eb Sodium Chloride For Inhalation (Hyper-Lamine) 4 Ml Vial.neb Yes 7 A s Needed [facility] Sucralfate (Carafate) 1 Gm/10 Ml Oral.susp Sucralfate (Carafate) 1 Gm/10 Ml Oral.susp Yes 1 Daily [facility] Testosterone Cypionate 200 Mg/1 Ml Vial Testosterone Cypiona te 200 Mg/1 Ml Vial Yes 200 [facility] Bumetanide 1 Mg Tablet, 2 Mg Oral Bumetanide 1 Mg Tablet, 2 Mg O ral 2019-08-12 00:00:00 No 2 Twice A Day [facility] Aclovate , 1 Spr Nasal Aclovate , 1 Spr Nasal 2019-08-05 00:00:00 No 1 Daily [facility] Alcometasone , 0.05 Alcometasone , 0.05 2019-08-05 00:00:00 No .05 Daily [facility] Cosentyx 150 Mg, 150 Mg Intramusc Cosentyx 150 Mg, 150 Mg Intram usc 2019-08-05 00:00:00 No 150 .monthly [facility] Potassium Chloride 20 Meq Tab.er.prt, 20 Meq Oral Pota ssium Chloride 20 Meq Tab.er.prt, 20 Meq Oral 2019-06-16 00:00:00 No 20 Twice A Day [facility] Baclofen 10 Mg Tablet, 10 Mg Oral Baclofen 10 Mg Tablet, 10 Mg O ral 2019-05-28 00:00:00 No 10 Three Times A Day [facility] Bumetanide 2 Mg Tablet, 2 Mg Oral Bumetanide 2 Mg Tablet, 2 Mg O ral 2019-05-04 00:00:00 No 2 Twice A Day [facility] Carisoprodol (Soma) 350 Mg Tablet, 350 Mg Oral Carisop rodol (Soma) 350 Mg Tablet, 350 Mg Oral 2019-04-23 00:00:00 No 350 Daily as needed for Pain [facility] Cholecalciferol (Vitamin D3) (Vitamin D3) 2,000 Unit C apsule, 6000 Units Oral Cholecalciferol (Vitamin D3) (Vitamin D3) 2,000 Unit Capsule, 6000 Units Oral 2019-04-23 00:00:00 No 6000 Bedtime [facility] Cosentyx , 150 Mg Cosentyx , 150 Mg 2019-04-23 00:00:00 No 150 [facility] Folic Acid 1 Mg Tablet, 400 Mcg Oral Folic Acid 1 Mg Tablet, 400 Mcg Oral 2019-04-23 00:00:00 No 400 Twice A Day [facility] Guaifenesin (Mucus Relief) 400 Mg Tablet, 400 Mg Oral Guaifenesin (Mucus Relief) 400 Mg Tablet, 400 Mg Oral 2019-04-23 00:00:00 No 400 Twice A Day [facility] Hydromorphone Hcl 2 Mg Tablet, 8 Mg Oral Hydromorphone Hcl 2 Mg Tablet, 8 Mg Oral 2019-04-23 00:00:00 No 8 As Needed as neede d for Prn [facility] Metolazone 5 Mg Tablet, 5 Mg Oral Metolazone 5 Mg Tablet, 5 Mg O ral 2019-04-23 00:00:00 No 5 [facility] Pantoprazole Sodium (Protonix) 40 Mg Tablet.dr, 40 Mg Oral Pantoprazole Sodium (Protonix) 40 Mg Tablet.dr, 40 Mg Oral 2019-04-23 00:00:00 No 40 Bedtime [facility] Sodium Chloride For Inhalation (Hyper-Lamine) 4 Ml Vial.n eb, 7 % Inhalation Sodium Chloride For Inhalation (Hyper-Almine) 4 Ml Vial.neb, 7 % Inhalation 2019-04-23 00:00:00 No 7 Daily as needed for Nasal Conge stion [facility] Spironolact/Hydrochlorothiazid (Aldactaz nidia 50-50 Tablet) 1 Each Tablet, 1 Tab Oral Spironolact/Hydrochlorothiazid (Aldactaz nidia 50-50 Tablet) 1 Each Tablet, 1 Tab Oral 2019-04-23 00:00:00 No 1 Daily [facility] Vitamin B12 , 80501 Mcg Oral Vitamin B12 , 65169 Mcg Oral 2019-04-23 00:00:00 No [id number] Use As Directed [facility] Clindamycin Hcl 300 Mg Capsule, 300 Mg Oral Clindamyci n Hcl 300 Mg Capsule, 300 Mg Oral 2019-02-15 00:00:00 No 300 Three Times A Da y [facility] Potassium Chloride (K-Dur) 20 Meq Tab.er.prt, 20 Meq O ral Potassium Chloride (K- Dur) 20 Meq Tab.er.prt, 20 Meq Oral 2019-01-09 00:00:00 No 20 Every 12 Hours [facility] Prednisone 10 Mg Tab, 30 Mg Oral Prednisone 10 Mg Tab, 30 Mg Ora l 2018-12-30 00:00:00 No 30 Daily [facility] Prednisone 20 Mg Tab, 20 Mg Oral Prednisone 20 Mg Tab, 20 Mg Ora l 2018-12-30 00:00:00 No 20 Daily [facility] Prednisone 10 Mg Tab, 10 Mg Oral Prednisone 10 Mg Tab, 10 Mg Ora l 2018-12-30 00:00:00 No 10 Daily [facility] Albuterol Sulfate (Proair Hfa Inhaler*) 8.5 Gm Inh, 3 Inh Albuterol Sulfate (Proair Hfa Inhaler*) 8.5 Gm Inh, 3 Inh 2018-12-11 00:00:00 No 3 [facility] Alclometasone Dipropionate 15 Gm Cream..g., 1 Applic T opically Alclometasone Dipropionate 15 Gm Cream..g., 1 Applic Topically 2018-12-11 00:00:00 N o 1 Daily [facility] Albuterol Sulfate (Proair Hfa Inhaler*) 8.5 Gm Inh, 2 Inh Inhalation Albuterol Sulfate (Proair Hfa Inhaler*) 8.5 Gm Inh, 2 Inh Inhalation 2018-12-07 00:00:00 No 2 Daily [facility] Clobetasol Propionate 1 Ea/15 Gm Cr, 1 Applic Topicall y Clobetasol Propionate 1 Ea/15 Gm Cr, 1 Applic Topically 2018-12-07 00:00:00 No 1 Daily [facility] Mirabegron (Myrbetriq) 50 Mg Tab.er.24h, 50 Mg Oral Mi rabegron (Myrbetriq) 50 Mg Tab.er.24h, 50 Mg Oral 2018-12-07 00:00:00 No 50 Every Morning [facility] Rapatha Injection , 140 Mg Intramusc Rapatha Injection , 140 Mg Intramusc 2018-12-07 00:00:00 No 140 Use As Directed [facility] Spironolactone (Aldactone) 50 Mg Tablet, 50 Mg Oral Sp ironolactone (Aldactone) 50 Mg Tablet, 50 Mg Oral 2018-12-07 00:00:00 No 50 As Needed [facility] Folic Acid 1 Mg Tablet, 1 Mg Oral Folic Acid 1 Mg Tablet, 1 Mg O ral 2018-11-05 00:00:00 No 1 Twice A Day [facility] Warfarin Sodium 3 Mg Tablet, 3 Mg Oral Warfarin Sodium 3 Mg Tabl et, 3 Mg Oral 2018-11-05 00:00:00 No 3 Daily [facility] Albuterol Sulf (Proventil 0.083% Neb) 3 Ml Nebu, 3 Ml Inhalation Albuterol Sulf (Proventil 0.083% Neb) 3 Ml Nebu, 3 Ml Inhalation 2018-09-13 00:00:00 No 3 Every 12 Hours [facility] Albuterol Sulfate (Proair Hfa Inhaler*) 8.5 Gm Inh, 1 Inh Inhalation Albuterol Sulfate (Proair Hfa Inhaler*) 8.5 Gm Inh, 1 Inh Inhalation 2018-09-13 00:00:00 No 1 Three Times A Day [facility] Albuterol Sulfate (Proair Hfa Inhaler*) 8.5 Gm Inh, Al buterol Sulfate (Proair Hfa Inhaler*) 8.5 Gm Inh, 2018-09-13 00:00:00 No [facility] Cyanocobalamin (Vitamin B-12) (Vitamin B-12) 2,000 Mcg Tablet.er, 2000 Mcg Cyanocobalamin (Vitamin B-12) (Vitamin B-12) 2,000 Mcg Tablet.er, 2000 Mcg 2018-09-13 00:00:00 No 2000 Weekly [facility] Duloxetine Hcl (Cymbalta) 30 Mg Capsule., 60 Mg Oral Duloxetine Hcl (Cymbalta) 30 Mg Capsule.dr, 60 Mg Oral 2018-09-13 00:00:00 No 60 Bedtime [facility] Fe Fumarate/Vit C/B12-If/Fa (Ferocon Capsule) 1 Each C apsule, 1 Cap Oral Fe Fumarate/Vit C/B12-If/Fa (Ferocon Capsule) 1 Each Capsule, 1 Cap Oral 2018-09-13 00:00:00 No 1 Daily [facility] Formoterol Fumarate (Perforomist) 20 Mcg/2 Ml Vial.neb , 20 Mcg Inhalation Formoterol Fumarate (Perforomist) 20 Mcg/2 Ml Vial.neb, 20 Mcg Inhalation 2018-09-13 00:00:00 No 20 Daily [facility] Liraglutide (Victoza 3-Asad) 0.6 Mg/0.1 Ml Pen.injctr, 1.8 Mg Injection Liraglutide (Victoza 3-Asad) 0.6 Mg/0.1 Ml Pen.injctr, 1.8 Mg Injection 2018-09-13 00:00:00 No 1.8 Every Morning [facility] London-3/Dha/Epa/Fish Oil (Fish Oil [place] -3 Softgel) 1 Each Capsule., 1 Tab Oral [place]-3/Dha/Epa/Fish Oil (Fish Oil [place] -3 Softgel) 1 Each Capsule., 1 Tab Oral 2018-09-13 00:00:00 No 1 Twice A Day [facility] Repaglinide (Prandin) 1 Mg Tab, 0.5 Tab Oral Repaglini de (Prandin) 1 Mg Tab, 0.5 Tab Oral 2018-09-13 00:00:00 No .5 As Needed [facility] Tamsulosin Hcl 0.4 Mg Cap.er.24h, 0.8 Mg Oral Tamsulos in Hcl 0.4 Mg Cap.er.24h, 0.8 Mg Oral 2018-09-13 00:00:00 No .8 Every 12 Yahir rs [facility] Testoterone , 1 Ml Testoterone , 1 Ml 2018-09-13 00:00:00 No 1 [facility] Furosemide 40 Mg Tablet, 80 Mg Oral Furosemide 40 Mg Tablet, 80 Mg Oral 2017-06-11 00:00:00 No 80 Daily [facility] Metoprolol Tartrate 25 Mg Tablet, 12.5 Mg Oral Metopro lol Tartrate 25 Mg Tablet, 12.5 Mg Oral 2017-06-11 00:00:00 No 12.5 Twice A Da y [facility] Warfarin Sodium (Coumadin) 5 Mg Tablet, 3 Mg Oral Warf rory Sodium (Coumadin) 5 Mg Tablet, 3 Mg Oral 2017-06-11 00:00:00 No 3 Tod ay At 5:00PM [facility] Furosemide (Lasix) 40 Mg Tablet, 2 Mg Oral Furosemide (Lasix) 40 Mg Tablet, 2 Mg Oral 2017-06-04 00:00:00 No 2 Twice A Day [facility] Furosemide (Lasix) 40 Mg Tablet, 80 Mg Oral Furosemide (Lasix) 40 Mg Tablet, 80 Mg Oral 2017-06-04 00:00:00 No 80 Twice A Day [facility] Ibuprofen 400 Mg Tablet, 600 Mg Oral Ibuprofen 400 Mg Tablet, 60 0 Mg Oral 2017-06-04 00:00:00 No 600 Every 6 Hours as nee ded for Pain [facility] Mucas , 400 Mcg Oral Mucas , 400 Mcg Oral 2017-06-04 00:00:00 No 400 Twice A Day [facility] Servent Disk , 50 Mcg Inhalation Servent Disk , 50 Mcg Inhalatio n 2017-06-04 00:00:00 No 50 Twice A Day [facility] Warfarin Sodium (Coumadin) 5 Mg Tablet, 3 Mg Oral Warf rory Sodium (Coumadin) 5 Mg Tablet, 3 Mg Oral 2017-06-04 00:00:00 No 3 Tod ay At 5:00PM [facility] Warfarin Sodium (Coumadin) 2 Mg Tablet, 2 Mg Oral Warf rory Sodium (Coumadin) 2 Mg Tablet, 2 Mg Oral 2017-06-04 00:00:00 No 2 Laquita ly [facility] Warfarin Sodium (Coumadin) 2.5 Mg Tablet, 2.5 Mg Oral Warfarin Sodium (Coumadin) 2.5 Mg Tablet, 2.5 Mg Oral 2017-06-04 00:00:00 No 2.5 Daily [facility] Warfarin Sodium (Coumadin) 5 Mg Tablet, 5 Mg Oral Warf rory Sodium (Coumadin) 5 Mg Tablet, 5 Mg Oral 2017-06-04 00:00:00 No 5 Tod ay At 5:00PM [facility] Aspirin 325 Mg Tablet, 81 Mg Oral Aspirin 325 Mg Tablet, 81 Mg O ral 2017-05-07 00:00:00 No 81 Daily [facility] Bupivacaine Hcl (Marcaine) 2.5 Mg/1 Ml Vial, 1.143 Mg Bupivacaine Hcl (Marcaine) 2.5 Mg/1 Ml Vial, 1.143 Mg 2017-05-07 00:00:00 No 1.143 Daily [facility] Carisoprodol 350 Mg Tablet, 350 Mg Oral Carisoprodol 350 Mg Tablet, 350 Mg Oral 2017-05-07 00:00:00 No 350 as needed [facility] Fenofibric Acid (Choline) (Trilipix) 135 Mg Capsule.dr , 135 Mg Oral Fenofibric Acid (Choline) (Trilipix) 135 Mg Capsule.dr, 135 Mg Oral 201 05-02-12 00:00:00 No 135 Daily [facility] Hydrocodone Bit/Acetaminophen (Hydrocodo ne-Apap 10-325 Mg Tab) 1 Each Tablet, 1 Each Oral Hydrocodone Bit/Acetaminophen (Hydrocodo ne-Apap 10-325 Mg Tab) 1 Each Tablet, 1 Each Oral 2017-05-07 00:00:00 No 1 as n eeded [facility] Hydrocodone Bit/Acetaminophen (Hydrocodo n-Acetaminophn 10-325) 1 Each Tablet, 10 Mg Oral Hydrocodone Bit/Acetaminophen (Hydrocodo n-Acetaminophn 10-325) 1 Each Tablet, 10 Mg Oral 2017-05-07 00:00:00 No 10 As Ne eded [facility] Latanoprost 2.5 Ml Drops, 2.5 Ml Ophthalmic Latanopros t 2.5 Ml Drops, 2.5 Ml Ophthalmic 2017-05-07 00:00:00 No 2.5 Daily [facility] Linagliptin (Tradjenta) 5 Mg Tablet, 5 Mg Oral Linagli ptin (Tradjenta) 5 Mg Tablet, 5 Mg Oral 2017-05-07 00:00:00 No 5 Daily [facility] Morphine Pump , 12.7 Mg Morphine Pump , 12.7 Mg 2017-05-07 00:00 :00 No 12.7 Daily [facility] Multivitamin (Multivitamins) 1 Each Tab.chew, Oral M ultivitamin (Multivitamins) 1 Each Tab.chew, Oral 2017-05-07 00:00:00 No Daily [facility] Omeprazole 40 Mg Capsule., 40 Mg Oral Omeprazole 40 Mg Cap gely., 40 Mg Oral 2017-05-07 00:00:00 No 40 Daily [facility] Polyethylene Glycol 3350 (Clearlax) 17 Gm Powd.pack, P olyethylene Glycol 3350 (Clearlax) 17 Gm Powd.pack, 2017-05-07 00:00:00 No As Needed [facility] Testosterone (Testopel) 75 Mg Pellet.ea., 75 Mg Testos terone (Testopel) 75 Mg Pellet.ea., 75 Mg 2017-05-07 00:00:00 No 75 [facility] Torsemide 20 Mg Tablet, 20 Mg Oral Torsemide 20 Mg Tablet, 20 Mg Oral 2017-05-07 00:00:00 No 20 Twice A Day [facility] Zolpidem Tartrate (Ambien) 10 Mg Tablet, 10 Mg Oral Zo lpidem Tartrate (Ambien) 10 Mg Tablet, 10 Mg Oral 2017-05-07 00:00:00 No 10 Bedtime [facility] Axiron , 30 Mg Axiron , 30 Mg 2013-09-01 00:00:00 No 30 Daily [facility] Caltrate +D , Oral Caltrate +D , Oral 2013-09-01 00:00:00 No Twice A Day [facility] Furosemide 40 Mg Tablet, 40 Mg Oral Furosemide 40 Mg Tablet, 40 Mg Oral 2013-09-01 00:00:00 No 40 Daily [facility] Marcaine , Marcaine , 2013-09-01 00:00:00 No Laquita ly [facility] Morphine Pump , Morphine Pump , 2013-09-01 00:00:00 No Daily [facility] Zolpidem Tartrate (Ambien Cr) 12.5 Mg Tab.mphase, 12.5 Mg Oral Zolpidem Tartrate (Ambien Cr) 12.5 Mg Tab.mphase, 12.5 Mg Oral 2013-09-01 00:00:00 No 12.5 Daily [facility] Vital Signs Vital Name Observation Time Observation Value Comments Source Temperature Oral (F) 2020-04-20 16:14:00 98 F [facility] Heart Rate 2020-04-20 16:14:00 [facility] Respitory Rate 2020-04-20 16:14:00 [facility] [place] Systolic (mm Hg) 2020-04-20 16:14:00 [facility] [place] Diastolic (mm Hg) 2020-04-20 16:14:00 [facility] Temperature Oral (F) 2020-04-20 12:54:00 97.9 F [facility] Heart Rate 2020-04-20 12:54:00 [facility] Systolic (mm Hg) 2020-04-20 12:54:00 [facility] Diastolic (mm Hg) 2020-04-20 12:54:00 [facility] Respitory Rate 2020-04-20 12:54:00 [facility] [place] Temperature Oral (F) 2020-04-20 10:02:00 98.0 F [facility] Heart Rate 2020-04-20 10:02:00 [facility] Systolic (mm Hg) 2020-04-20 10:02:00 [facility] [place] Diastolic (mm Hg) 2020-04-20 10:02:00 [facility] Respitory Rate 2020-04-20 00:22:00 [facility] [place] Height 2020-04-14 09:17:00 175.26 cm [facility] Weight 2020-04-14 09:17:00 [facility] BMI Calculated 2020-04-14 09:17:00 [facility] Height 2020-04-13 15:03:00 175.26 cm [facility] BMI Calculated 2020-04-13 15:03:00 [facility] Weight 2020-04-13 15:03:00 [facility] Temperature Oral (F) 2020-04-13 00:56:00 97.9 F [facility] Heart Rate 2020-04-13 00:56:00 [facility] Respitory Rate 2020-04-13 00:56:00 [facility] [place] Systolic (mm Hg) 2020-04-13 00:56:00 [facility] Diastolic (mm Hg) 2020-04-13 00:56:00 [facility] Systolic (mm Hg) 2020-04-12 23:30:00 [facility] Diastolic (mm Hg) 2020-04-12 23:30:00 [facility] [place] Temperature Oral (F) 2020-04-12 20:53:00 97.0 F [facility] Heart Rate 2020-04-12 20:53:00 [facility] Respitory Rate 2020-04-12 20:53:00 [facility] Systolic (mm Hg) 2020-04-12 20:53:00 [facility] Diastolic (mm Hg) 2020-04-12 20:53:00 [facility] [place] Temperature Oral (F) 2020-04-12 20:11:00 98.1 F [facility] Heart Rate 2020-04-12 20:11:00 [facility] Respitory Rate 2020-04-12 20:11:00 [facility] [place] Height 2020-04-07 18:34:00 175.26 cm [facility] Weight 2020-04-07 18:34:00 [facility] BMI Calculated 2020-04-07 18:34:00 [facility] Height 2020-04-07 14:31:00 175.26 cm [facility] Weight 2020-04-07 14:31:00 [facility] Height 2020-04-07 10:57:00 175.26 cm [facility] Weight 2020-04-07 10:57:00 [facility] BMI Calculated 2020-04-07 10:57:00 [facility] [place] Height 2020-04-04 19:05:00 175.26 cm [facility] Weight 2020-04-04 19:05:00 [facility] BMI Calculated 2020-04-04 19:05:00 [facility] BMI Calculated 2020-04-03 17:53:00 [facility] [place] Respitory Rate 2019-11-11 16:00:00 [facility] Systolic (mm Hg) 2019-11-11 16:00:00 [facility] [place] Diastolic (mm Hg) 2019-11-11 16:00:00 [facility] Respitory Rate 2019-11-11 14:07:00 [facility] Systolic (mm Hg) 2019-11-11 14:07:00 [facility] [place] Diastolic (mm Hg) 2019-11-11 14:07:00 [facility] Respitory Rate 2019-11-11 12:00:00 [facility] Systolic (mm Hg) 2019-11-11 12:00:00 Jimmy rial [facility] Diastolic (mm Hg) 2019-11-11 12:00:00 [facility] [place] Temperature Oral (F) 2019-11-10 17:00:00 97.6 F [facility] Height 2019-11-10 16:53:00 175.26 cm [facility] Weight 2019-11-10 16:53:00 [facility] BMI Calculated 2019-11-10 16:53:00 [facility] Respitory Rate 2019-10-17 05:00:00 [facility] Systolic (mm Hg) 2019-10-17 05:00:00 Jimmy [facility] [place] Diastolic (mm Hg) 2019-10-17 05:00:00 [facility] [place] Systolic (mm Hg) 2019-10-17 04:00:00 Jimmy [facility] Diastolic (mm Hg) 2019-10-17 04:00:00 [facility] [place] Respitory Rate 2019-10-17 04:00:00 [facility] Temperature Oral (F) 2019-10-17 04:00:00 98.4 F [facility] Systolic (mm Hg) 2019-10-17 03:50:00 Jimmy [facility] Diastolic (mm Hg) 2019-10-17 03:50:00 [facility] Respitory Rate 2019-10-17 03:50:00 Maricruz ramsey [place] Temperature Oral (F) 2019-10-17 01:00:00 98.0 F [facility] [place] Heart Rate 2019-10-16 22:37:00 [facility] [place] Temperature Oral (F) 2019-10-16 22:37:00 98.4 F [facility] [place] Height 2019-06-02 15:55:00 175.26 cm [facility] Weight 2019-06-02 15:55:00 [facility] [place] BMI Calculated 2019-06-02 15:55:00 [facility] [place] BMI Calculated 2019-04-19 15:35:00 [facility] Height 2019-04-19 15:35:00 175.26 cm [facility] Weight 2019-04-19 15:35:00 [facility] Height 2018-11-30 16:13:00 175.26 cm [facility] [place] Weight 2018-11-30 16:13:00 [facility] BMI Calculated 2018-11-30 16:13:00 Maricruz ramsey [facility] Procedures Procedure Date / Time Performed Performing Clinician [facility] Measurement of post-voiding residual uri ne and/or bladder capacity by ultrasound, non-imaging 2020-04-04 19:08:00 [facility] Computed tomography of brain without radiopaque contrast 201 07-06-15 00:00:00 PERRY PERALES [facility] Computed tomography of chest without contrast 2019-08-05 00: 00:00 IBAN RAMOS [facility] Complex cystometrogram (ie, calibrated e lectronic equipment); with voiding pressure studies (ie, bladder voiding pressure), any technique 2019-06-02 16:04:00 [facility] Voiding pressure studies, intra-abdomina l (ie, rectal, gastric, intraperitoneal) (List separately in addition to code for primary procedure) 2019-06-02 16:04:00 [facility] Complex uroflowmetry (eg, calibrated electronic equipment) 2 16:04:00 [facility] Electromyography studies (EMG) of anal o r urethral sphincter, other than needle, any technique 2019-06-02 16:04:00 [facility] Computed tomography of brain without radiopaque contrast 201 07-04-01 00:00:00 RIPLEYSAMARA [facility] Magnetic resonance imaging of brain without contrast 2019-05 00:00:00 THIAGOSAMARA [facility] X-ray of chest, two views 2019-05-26 00:00:00 TROY CODY [facility] MRI non-joint region of extremity upper wo contrast 00:00:00 THIAGOSAMARA [facility] X-ray of chest, two views 2019-04-23 00:00:00 IBAN RAMOS [facility] X-ray of chest, single view 2019-02-08 00:00:00 VENITA PRADO [facility] Cystoscopy 2018-08-25 05:00:00 [facility] uroflowmetry 2018-03-30 05:00:00 Memmont[facility] l [place] Catheter replacement [facility] Fusion<sup>1</sup> [facility] Prostate manipulation [facility] Stent [facility] A[facility]ation [facility] Cataract surgery [facility] Colonoscopy [facility] Operation [facility] PCI - Percutaneous coronary intervention [facility] Plan of Care Planned Activity Planned Date Details Comments Source Future Scheduled Test 2020-06-27 00:00:00 INFLUENZA VACCINE [code = INFLUENZA VACCINE] [facility] Future Scheduled Test 2009 00:00:00 65+ PNEUMOCOCCAL V ACCINE (1 of 2 - PCV13) [code = 65+ PNEUMOCOCCAL VACCINE (1 of 2 - PCV13)] [facility] Future Scheduled Test 1994 00:00:00 COLONOSCOPY SCREEN ING [code = COLONOSCOPY SCREENING] [facility] Future Scheduled Test 1994 00:00:00 SHINGLES VACCINES (#1) [code = SHINGLES VACCINES (#1)] [facility] Encounters Start Date/Time End Date/Time Encounter Type Admission Type [facility] Care Department Encounter ID Source 2020-04-07 05:12:00 Inpatient [facility] [id number] [facility] 2019-12-27 08:46:46 Outpatient [id number] 2019-11-10 10:41:00 Inpatient [facility] [id number] [facility] 2020-04-13 10:00:54 2020-04-20 15:36:00 Outpatient Jhon , Fransisca Montero [facility] [id number] 2020-04-13 12:31:00 2020-04-13 10:00:00 Inpatient E [id number] 2020-04-07 05:12:00 2020-04-12 19:00:00 [facility] [id number] 2020-04-04 14:15:00 2020-04-04 23:59:59 [facility] [id number] 2020-03-13 13:00:00 2020-03-13 13:00:00 [facility] [id number] 2020-03-01 00:00:00 2020-03-01 00:00:00 Orders Only D yanira Unassigned, [place] [facility] [id number] 2020-02-29 09:58:00 2020-02-29 23:59:00 Hospital Encounter [facility] ([facility]) [id number] 2020-02-29 00:00:00 2020-02-29 00:00:00 [facility]phone [facility] [id number] 2020-02-29 00:00:00 2020-02-29 00:00:00 Nurse Triage Kena Arnold [facility] [id number] 2020-02-02 13:35:00 2020-02-02 23:59:00 Outpatient Teofilo Summers [facility] [id number] 2020-02-02 13:35:00 2020-02-02 13:35:00 Outpatient [id number] 2019-11-12 09:35:00 2019-11-12 12:01:00 Departed Emergency Room [facility] [id number] [facility] Patients [facility] 2019-11-10 10:41:00 2019-11-11 12:00:00 Outpatient Mundo Vásquez [facility] [id number] 2019-10-16 16:35:00 2019-10-16 23:39:00 Outpatient Santos Lissettevioletta Hess [facility] [id number] 2019-10-16 12:05:00 2019-10-16 15:53:00 Departed Emergency Room 1 RENAE MENDOZA [facility] [id number] [facility] 2019-10-16 14:58:00 2019-10-16 14:58:00 Emergency E [facility] [id number] [facility] 2019-10-06 00:28:00 2019-10-06 01:45:00 Departed Emergency Room [facility] [id number] [facility] 2019-08-05 23:06:00 2019-08-12 16:35:00 Discharged Inpatient 1 PERRY PERALES [facility] [id number] [facility] 2019-07-23 08:57:00 2019-07-23 23:59:00 Outpatient Mila JonesLyly [facility] [id number] 2019-06-11 17:49:00 2019-06-16 17:48:00 Discharged Inpatient 1 ROSALIE SOHRT [facility] [id number] [facility] 2019-06-02 11:15:00 2019-06-02 23:59:59 Outpatient Kelechi Sibley [facility] [place] [id number] 2019-06-01 13:00:00 2019-06-01 23:59:59 Outpatient [facility] [id number] 2019-05-26 16:43:00 2019-05-28 12:59:00 Discharged Inpatient (obs) 1 ROSALIE SHORT [facility] [id number] [facility] 2019-05-27 09:00:00 2019-05-27 23:59:59 Outpatient Kelechi Sibley MG MG [id number] 2019-05-25 13:40:00 2019-05-25 13:40:00 Outpatient Kelechi Sibley MG MG [id number] 2019-05-18 13:45:00 2019-05-18 23:59:59 Outpatient [facility] MG [id number] 2019-05-04 13:50:00 2019-05-04 13:50:00 [facility] [id number] 2019-05-04 11:30:00 2019-05-04 11:30:00 Outpatient MG MG [id number] 2019-04-23 19:41:00 2019-05-04 10:54:00 Discharged Inpatient 1 ROSALIE SHORT [facility] [id number] [facility] 2019-04-21 14:00:00 2019-04-21 14:00:00 Outpatient VISIT, HARLAN MIKEY UAHT [facility] [id number] 2019-04-19 10:30:00 2019-04-19 23:59:59 Outpatient Humbertoyesica Kelechi Fulton [facility] [id number] 2019-02-08 22:29:00 2019-02-15 14:47:00 Discharged Inpatient 1 ROSALIE SHORT [facility] [id number] [facility] 2019-01-05 22:50:00 2019-01-09 13:42:00 Discharged Inpatient 1 ROSALIE SHORT [facility] [id number] [facility] 2018-12-30 13:58:00 2018-12-31 15:25:00 Discharged Inpatient (obs) 3 HAILEE MCGUIRE [facility] [id number] [facility] 2018-12-28 09:25:00 2018-12-28 23:59:00 Outpatient Mila Jonese [facility] [id number] 2018-12-13 12:11:00 2018-12-15 13:01:00 Discharged Inpatient 1 RENAE SOLARES [facility] [id number] [facility] 2018-12-08 11:09:00 2018-12-08 11:09:00 Registered Surgical Day Care [facility] [id number] [facility] 2018-11-30 10:30:00 2018-11-30 23:59:59 Outpatient Kelechi Sibley [facility] [id number] 2018-11-06 21:48:00 2018-11-07 15:53:00 Discharged Inpatient (obs) [facility] [id number] [facility] 2018-11-04 10:43:00 2018-11-05 23:59:59 Outpatient [facility] [id number] 2018-09-13 19:21:00 2018-09-16 12:23:00 Discharged Inpatient 1 ROSALIE SHORT [facility] [id number] [facility] 2018-08-02 07:48:00 2018-08-05 14:08:00 Discharged Inpatient 3 HAILEE MCGUIRE [facility] [id number] [facility] 2017-12-04 18:00:00 2017-12-04 23:59:00 Outpatient Oleksandr Polanco [facility] MH[facility] [id number] 2017-04-23 14:07:00 2017-04-23 23:59:00 Outpatient Mila JonesLyly [facility] [id number] 2016-06-24 08:46:00 2016-06-24 23:59:00 Outpatient Fadi Galeas [facility] [id number] 2016-06-19 09:37:00 2016-06-19 23:59:00 Outpatient Fadi Galeas SE SE [id number] 2016-04-23 10:15:00 2016-04-23 23:59:00 Outpatient Monique Reed OIB OIB [id number] 2016-04-10 08:29:00 2016-04-10 23:59:00 Outpatient NicolasElida davis Naldo SE SE [id number] 2016-04-02 11:11:00 2016-04-02 23:59:00 Outpatient Guillermina Martínez HOIP HOIP [id number] 2016-03-28 06:32:00 2016-03-28 23:59:00 Outpatient Teofilo Summers SE SE [id number] 2016-03-06 09:34:00 2016-03-06 23:59:00 Outpatient Monique Reed OIB OIB [id number] Results Test Description Test Time Test Comments Results Result Comments Source CHEST SINGLE (PORTABLE) 2020-06-12 20:27:00 [place] [address] Patient Name: STEVE BENEDICT MR #: [id number] : 1945 Age/Sex: 74/M Req #: [id number] Adm Physician: Ordered by: CLEMENTINA STONE MD Report #: [id number] Location: ER Room/Bed: Procedure: [id number] DX/CHEST SINGLE (PORTABLE) Exam Date: Exam Time: [...] on 06/12/202029 COPY TO: CLEMENTINA STONE MD [facility] 2020-04-20 15:44:00 3.2 [facility] [place] CHEM PANEL 2020-04-20 11:15:00 2.0 [facility] [place] CHEM PANEL 2020-04-20 11:15:00 103 [facility] [place] CHEM PANEL 2020-04-20 11:15:00 39 [facility] [place] CHEM PANEL 2020-04-20 11:15:00 1.56 [facility] CHEM PANEL 2020-04-20 11:15:00 136 [facility] [place] CHEM PANEL 2020-04-20 11:15:00 2.8 [facility] CHEM PANEL 2020-04-20 11:15:00 97 [facility] [place] CHEM PANEL 2020-04-20 11:15:00 33 [facility] [place] CHEM PANEL 2020-04-20 11:15:00 8.8 [facility] CHEM PANEL 2020-04-20 11:15:00 8.3 [facility] CHEM PANEL 2020-04-20 11:15:[facility] 2020-04-20 11:15:00 Normal (04/20/20 6:15 AM) [facility] HEMATOLOGY 2020-04-20 11:15:00 Normal (04/20/20 6:15 AM) [facility] [place] HEMATOLOGY 2020-04-20 11:15:00 73.4 [facility] HEMATOLOGY 2020-04-20 11:15:00 16.9 [facility] HEMATOLOGY 2020-04-20 11:15:00 7.8 [facility] [place] HEMATOLOGY 2020-04-20 11:15:00 1.0 [facility] HEMATOLOGY 2020-04-20 11:15:00 0.9 [facility] HEMATOLOGY 2020-04-20 11:15:00 3.5 [facility] HEMATOLOGY 2020-04-20 11:15:00 0.8 [facility] [place] HEMATOLOGY 2020-04-20 11:15:00 0.4 [facility] HEMATOLOGY 2020-04-20 11:15:00 0.1 [facility] [place] HEMATOLOGY 2020-04-20 11:15:00 4.8 [facility] HEMATOLOGY 2020-04-20 11:15:00 4.39 [facility] HEMATOLOGY 2020-04-20 11:15:00 12.1 [facility] [place] HEMATOLOGY 2020-04-20 11:15:00 38.3 [facility] [place] HEMATOLOGY 2020-04-20 11:15:00 87.2 [facility] HEMATOLOGY 2020-04-20 11:15:00 Test Item MCH (test code = MCH) 27.5 pg 27.0-31.0 [facility] MmqfptoPDDJKUIGBD2889-68-30 11:15:0031.5[facility]annHEMATOLOGY 2020-04-20 11:15:0019.6[facility] VhwdhvxOXGLJAGGAU2591-77-98 11:15:43226Tlzlaloa PmuoxliVHYDKFBGXV7485-93-69 11:15:008.0[facility] OlzzpdcQUQHRZDKSH4401-59-05 18:33:0017.2[facility] BdhdknzZKKQGLOJCB2341-76-60 18:33:00* Test Item Value Reference Range Interpretation Comments Oswaldo KOHLERD (test code = Oswaldo Botello TND) 1330 1 [facility]annCHEM OXDDI7989-43-77 10:04:0083[facility] HermannCHEM PANEL 2020-04-19 10:04:0036[facility] HermannCHEM OHTSC0472-99-66 10:04:001.50[facility] HermannCHEM FZQPJ3051-52-55 10:04:88633Cfmround HermannCHEM FHBHT5551-86-34 10:04:003.1[facility] HermannCHEM ERMOF6434-86-45 10:04:10720Kksnpigk HermannCHEM MAMYZ1852-54-33 10:04:0035[facility] HermannCHEM FPWQJ4675-25-09 10:04:009.2 [facility]annCHEM VUQFM0620-46-73 10:04:006.1[facility] HermannCHEM PANEL 2020-04-19 10:04:0045[facility] HermannCHEM XHOLB0043-47-01 10:04:001.6[facility] HermannCHEM SNELZ6483-65-36 10:04:003.4[facility] OhfokwmYPKVXAMFBU5737-18-22 10:04:00Normal (04/19/20 5:04 AM)[facility] SklyxzsXVIWUYFTLF7098-49-16 10:04:00 76.2[facility] UpfyfnsOXZRQRWATS1927-87-63 10:04:0015.3[facility] HermannHEMATOLOGY 2020-04-19 10:04:007.2[facility] JpkwbdqTQXLNRMVXB0712-75-05 10:04:000.6[facility] EjkgjncOSEXPXISCM9243-11-99 10:04:000.7[facility] IoyuamsVEEWMQVZGI9856-25-83 10:04:003.5[facility] GwmbdirNKPWOYQHRY0023-46-16 10:04:000.7[facility] [place] UXVBODJNRJ3876-08-28 10:04:000.3[facility] MijvhcsMKPFABFCCD6534-70-56 10:04:001+ (04/19/20 5:04 AM)[facility] GatejkdTHTSXYLBAP5313-14-66 10:04:004.6[facility] AphmzomHWCVELDFIL1017-85-91 10:04:004.73[facility] QqemfygQUXKQGBYGX8521-18-95 10:04:0012.8[facility] WhyrnurZMPOADXTJS8888-65-44 10:04:0041.5[facility] [place] KISENUXSWB4413-13-49 10:04:0087.8[facility] JlewrkwPMXTFIDCRQ9234-15-26 10:04:00* Test Item Value Reference Range Interpretation Comments MCH (test code = MCH) 27.1 pg 27.0-31.0 [facility] SjrzbpbUMEMNOEXLO2415-23-61 10:04:0030.8[facility] HermannHEMATOLOGY 2020-04-19 10:04:0019.5[facility] QeplapfSIBZEQTNQO2574-73-17 10:04:98654Euwhtmik LvpoemtLHGFENICRO4112-92-00 10:04:007.8[facility] HermannCHEM TACIO3108-00-92 11:25:0077[facility] HermannCHEM KZJKM4167-48-12 11:25:0041[facility] HermannCHEM JVCLK4803-04-67 11:25:001.60[facility] HermannCHEM WAAPC2426-26-30 11:25:77080 [facility]annCHEM IBTMP9381-04-62 11:25:0098[facility] HermannCHEM PANEL 2020-04-18 11:25:0037[facility] HermannCHEM LZYSA5172-28-75 11:25:006.0[facility] HermannCHEM NWIFD4328-66-74 11:25:009.0[facility] HermannCHEM ZTSBD4800-20-69 11:25:0042[facility] HermannCHEM SLSPQ2783-76-76 11:25:002.1[facility] MPDZYOSXDE7340-37-38 11:25:004.8[facility] NfezsbbHKZIHLFXTI4928-92-47 11:25:00 4.57Mem[facility] XzjdecsJLZBQXBWUH8195-37-46 11:25:0012.5[facility] HermannHEMATOLOGY 2020-04-18 11:25:0040.3[facility] IkxgmxiWMQUTGETRE5248-92-05 11:25:0088.3[facility] BmveuokNLCHSXKOFO8371-62-94 11:25:00* Test Item Value Reference Range Interpretation Comments MCH (test code = MCH) 27.3 pg 27.0-31.0 [facility] DwmwszsBVURWIKOTW8127-42-28 11:25:0030.9[facility] HermannHEMATOLOGY 2020-04-18 11:25:0019.9[facility] WxhxdhqIPVSZHBDOY3804-84-17 11:25:46313Ilqqvwyc ThtamnyZGFEFVBSMN5036-95-24 11:25:007.9[facility] GbjduwvSXRNBPQJHE2287-23-29 11:25:00Normal (04/18/20 6:25 AM)[facility] HiyveuyCXGJAJBBZI5436-50-53 11:25:00 73.6[facility] GwukxrlJTPHESHJWT5876-77-53 11:25:0017.5[facility] HermannHEMATOLOGY 2020-04-18 11:25:008.1[facility] RecdbykQYPPFVKMTJ8924-93-70 11:25:000.3[facility] BlxkaloWRQRNLPYPP3147-09-75 11:25:000.5[facility] BeelsaiTDUXFFXWOD2119-70-42 11:25:003.6[facility] GuxqllvNAMSXWKRKE9693-52-67 11:25:000.8[facility] [place] ZVNXJTZXFI3432-94-91 11:25:000.4[facility] KxaenbaIQJQVRCAHO2533-55-00 11:25:001+ *ABN*(04/18/20 6:25 AM)[facility] PdwkqacBOUHFTBQYM2168-64-82 11:25:001+ (04/18/20 6:25 AM)[facility] PxzvfgcEAEZWYQUFI8497-08-33 17:21:0015.8[facility] YJQQHWNSNK4751-67-96 15:22:0017.9[facility] HermannCARDIAC VGQULDU9106-33-63 10:56:64829Ulesbbye HermannCHEM LUIOS7715-54-42 10:56:003.1[facility] NLBWVEQQOP1005-22-37 10:56:000.1[facility] CgrbtbuSNYDSPWTTU0906-46-57 10:56:001+ (04/15/20 5:56 AM)[facility] FywixztJDIWGXCXGJ6730-59-85 15:19:0025.5[facility] HermannBACTERIAL - METHOCRU4466-63-38 12:47:00Negative (04/14/20 7:47 AM)[facility] HermannCARDIAC EDYPDPQ9040-60-77 10:50:000.13[facility] HermannCHEM PANEL 2020-04-14 10:50:004.5[facility] OnabmpuFJOUIDEAYD9215-86-58 10:50:0054[facility] SrruxzhFRLGBJFSEM8252-51-03 10:50:67176.0[facility] HermannCARDIAC ENZYMES 2020-04-13 22:27:000.15[facility] CwoemdqXMAYMSXESC1436-42-61 22:27:0031[facility] HermannURINE AND SLSSJ8802-31-28 22:27:00Slight *ABN*(04/13/20 5:27 PM)[facility]ann[facility] AND BLQBI8646-61-22 22:27:00* Test Item Value Reference Range Interpretation Comments UA Spec Grav (test code = UA Spec Grav) 1.017 1 [facility]ann[facility] AND GSVQO9695-31-90 22:27:00* Test Item Value Reference Range Interpretation Comments UA pH (test code = UA pH) 5.0 1 5.0-8.0 [facility] AND QLUPE8582-59-89 22:27:00Negative *NA*(04/13/20 5:27 PM) [facility] FXCND6206-65-59 22:27:00Negative (04/13/20 5:27 PM) [facility] ENWEC5005-13-93 22:27:00Positive *ABN*(04/13/20 5:27 PM)[facility] AND JKMSD1515-53-43 22:27:00Negative (04/13/20 5:27 PM) [facility] LQLYJ1117-20-98 22:27:002[facility]ann[facility] AND HOFIV8140-35-87 22:27:001[facility]ann[facility] AND GTILN7833-15-47 22:27:0083 [facility] EMVD2380-37-81 22:27:00* Test Item Value Reference Range Interpretation Comments U Prot/Creat (test code = U Prot/Creat) 0.17 1 [facility]ann[facility] GDBS9484-90-02 22:27:61997.00[facility]annURINE CHEM 2020-04-13 22:27:0012[facility]annURINE KGCY4214-82-09 22:27:0036.0[facility]annURINE FCPD5843-93-71 22:27:00None Seen (04/13/20 5:27 PM)[facility] [place] CARDIAC HKBCOLW5720-71-13 15:56:79470Kbkaylxg HermannCARDIAC WOWKXRY1096-25-11 15:56:0081[facility] HermannCARDIAC XKMVWUS1155-97-98 15:56:000.06[facility] CHEM GGZES2161-03-37 15:56:000.58[facility] HermannCHEM ZNUCJ1032-28-43 15:56:00 6.1[facility] HermannCHEM BUZLD6588-95-13 15:56:002.6[facility] HermannCHEM PANEL 2020-04-13 15:56:0021[facility] HermannCHEM TVNNO6632-17-38 15:56:0025[facility] HermannCHEM EDQLW1056-89-73 15:56:0075[facility] HermannCHEM KGNLR7389-05-59 15:56:000.5[facility] HermannCHEM EFXVS6864-99-80 15:56:00* Test Item Value Reference Range Interpretation Comments B/C Ratio (test code = B/C Ratio) 23 1 6-25 [facility]annCHEM RDPXM4133-35-35 15:56:003.5[facility] HermannCHEM PANEL 2020-04-13 15:56:00* Test Item Value Reference Range Interpretation Comments A/G Ratio (test code = A/G Ratio) 0.7 1 0.7-1.6 [facility]annCHEM ZSUQK8118-14-72 15:56:002.0[facility] HermannHEMATOLOGY 2020-04-13 15:56:000.94[facility] JjrpdalRVOBNJDDRE3682-68-33 15:56:00* Test Item Value Reference Range Interpretation Comments PT (test code = PT) 13.2 s 12.0-14.7 [facility] DdomdleHBCNYEARVF3601-22-57 15:56:00* Test Item Value Reference Range Interpretation Comments INR (test code = INR) 1.00 1 0.85-1.17 [facility] FbwgfurZAAPCVKYHK5158-28-79 15:56:00* Test Item Value Reference Range Interpretation Comments PTT (test code = PTT) 28.1 s 22.9-35.8 [facility]annMOLECULAR IOAKRIVBSW5488-65-15 15:56:00Not Detected (04/13/20 10:56 AM)[facility] HermannMOLECULAR BMIARXOKUD1458-69-82 15:56:00Detected *ABN*(04/13/20 10:56 AM)[facility] HermannMOLECULAR UXPUFQJEKN7461-06-11 15:56:00 Not Detected (04/13/20 10:56 AM)[facility] HermannMOLECULAR HDRQYXEWKY0712-49-55 15:56:00Not Detected (04/13/20 10:56 AM)[facility] HermannMOLECULAR DIAGNOSTIC 2020-04-13 15:56:00Not Detected (04/13/20 10:56 AM)[facility] HermannMOLECULAR KJHDATTJHB2828-63-85 15:56:00Not Detected (04/13/20 10:56 AM)[facility] OPZJJSCXRF7305-19-72 15:56:00Not Detected (04/13/20 10:56 AM)[facility] HBFFOEQAGN0817-45-08 15:56:00Not Detected (04/13/20 10:56 AM) [facility] HDNCBUPNXR7249-99-90 15:56:00Not Detected (04/13/20 10:56 AM)[facility] MPDIEWXLDA1283-31-78 15:56:00Detected *ABN*(04/13/20 10:56 AM)[facility] KJGZQRVHDC8252-50-30 15:56:00 Not Detected (04/13/20 10:56 AM)[facility] LLDOPRAQVB8710-16-32 15:56:00Not Detected (04/13/20 10:56 AM)[facility] 2020-04-13 15:56:00Detected *ABN*(04/13/20 10:56 AM)[facility] EEUHDCFOHJ5008-22-19 15:56:00Not Detected (04/13/20 10:56 AM)[facility] JXGCTQKBKC3307-04-60 15:56:00Not Detected (04/13/20 10:56 AM)[facility] AdjnfydUGSNTFQBDL3558-60-62 00:33:0017.9[facility] MgqpzcjAZJDTJFIZC8579-42-39 00:33:00* Test Item Value Reference Range Interpretation Comments [facility] 1930 1 [facility] [id number] 09:59:96011Qeyapcfk HermannCHEM PANEL 2020-04-10 09:59:0064[facility]CHE[facility] FHAXN3106-00-02 09:59:001.77[facility]CHE[facility] GARUA8315-28-50 09:59:73755Ymugltvw [facility]annCHE[facility] AXDBG2029-68-91 09:59:003.7[facility]annCHE[facility] TILIB2668-69-63 09:59:0091[facility]annCHE[facility] THDHI7656-36-05 09:59:0042[facility]annCHE[facility] ZYORS9619-60-11 09:59:006.7 [facility]CHE[facility] TGBVA4153-81-01 09:59:009.2[facility]annCHEM PANEL 2020-04-10 09:59:0037[facility] GhgkticXZVLSXKTBU6120-39-07 00:42:0017.8[facility] EhmhzckUVGFVWZJEX6926-42-22 00:42:00* Test Item Value Reference Range Interpretation Comments [facility] (test code = [facility] T[facility] 2000 1 [facility] [id number] 10:57:73771Ykwsbnzg HermannCHEM PANEL 2020-04-09 10:57:0069[facility]annCHE[facility] LPXHD8213-99-41 10:57:002.00[facility]CHE[facility] EZWCH3509-83-37 10:57:60770Svwbowbx HermannCHEM YNUVD2097-46-55 10:57:004.1[facility]annCHE[facility] KSFGL6989-29-88 10:57:0091[facility]annCHE[facility] BCRKQ0979-05-71 10:57:0035[facility]annCHE[facility] KIWCU6567-94-59 10:57:0015.1 [facility]CHE[facility] FLGWE3554-19-30 10:57:009.5[facility]annCHEM PANEL 2020-04-09 10:57:0032[facility] GpbmhniSBLJSFHTVL1045-36-15 22:28:0016.5[facility]annCHEM UHZNF4948-03-35 15:22:62714Mrhcqqbv HermannCHEM LDIWQ9841-64-05 15:22:0065[facility]annCHE[facility] PGUGZ5543-35-59 15:22:001.88[facility]annCHE[facility] CRFMY1223-61-06 15:22:44473Dvhbgzkj [facility]annCHE[facility] KSDLK6997-11-95 15:22:002.8 [facility]CHE[facility] EUKOA4756-63-98 15:22:0085[facility]annCHEM PANEL 2020-04-08 15:22:0043[facility]annCHE[facility] HFDCH3115-73-53 15:22:009.8[facility]annCHE[facility] TQGEM1053-97-30 15:22:009.1[facility]annCHEM RDJZC7776-67-61 15:22:0034[facility] YeznafcFUVLVNFBLU3897-14-01 15:22:007.3[facility] LUWNDTSLZP5723-11-33 15:22:004.74[facility] UexecfkGQWVXMLHMK8442-97-74 15:22:00 12.8[facility] KcslvqtMFDEXJHTVU7458-51-63 15:22:0041.2[facility]annHEMATOLOGY 2020-04-08 15:22:0086.8[facility] AkdmgyfOYZCGEUYHM4580-34-84 15:22:00* Test Item Value Reference Range Interpretation Comments [facility] (test code = MCH) 27.0 pg 27.0-31.0 [facility] JdcdnfjQKDFNIWPHF6608-60-22 15:22:0031.1[facility] 2020-[facility] 15:22:0020.1[facility] IozytyvQPFWUZZYBO8137-03-78 15:22:75663Xalhsrul SppybohCUHEEFOCNB7486-67-25 15:22:007.4[facility] KlydnznIVFKBMSQDW7219-06-97 15:22:0083.0[facility] EmllytaKHFZQMOTHD8384-49-50 15:22:0011.0[facility] OHKQODRSMH1985-58-42 15:22:005.3[facility] UuemaziBOZWDIYVTC6875-85-30 15:22:000.3 [facility] EterfwcMYZSNWJALY8999-02-09 15:22:000.4[facility]ann[facility]OLOGY 2020-04-08 15:22:006.1[facility] VlyopktDOESWSVXOO5413-43-72 15:22:000.8[facility] WcpykpeETFLEOMOCT1872-12-49 15:22:000.4[facility] KNAGV4682-72-34 19:09:00Yellow *NA*(04/04/20 2:09 PM)[facility] [id number] 19:09:00Clear *NA*(04/04/20 2:09 PM)[facility] [id number] 19:09:00* Test Item Value Reference Range Interpretation Comments POC UA SG (test code = POC UA SG) 1.015 1 [facility] [id number] 19:09:00* Test Item Value Reference Range Interpretation Comments POC UA pH (test code = POC UA pH) 6.0 1 5.0-8.0 [facility] WUSQT7812-77-02 19:09:00Negative *NA*(04/04/20 2:09 PM) [facility] JMSBW6842-00-60 19:09:00Negative *NA*(04/04/20 2:09 PM) [facility] UNMJW1569-29-82 19:09:000.2[facility] EKAZE9745-55-60 19:09:00Negative *NA*(04/04/20 2:09 PM)[facility] URAOU6413-59-45 19:09:00Trace *ABN*(04/04/20 2:09 PM)[facility]annIMMUNOLOGY 2020-04-04 15:15:00Not Detected (04/04/20 10:15 AM)[facility] SXYMRYH1120-15-15 19:17:00Negative (04/03/20 2:17 PM)[facility]annCHEM PANEL 2020-04-03 19:17:00* Test Item Value Reference Range Interpretation Comments B/C Ratio (test code = B/C Ratio) 41 1 6-25 [facility] IMIFZ0397-70-62 19:17:006.5[facility]annCHEM PANEL 2020-04-03 19:17:003.3[facility]annCHE[facility] GTSIF7347-09-27 19:17:003.2[facility]annCHEM RXXVF3505-10-20 19:17:00* Test Item Value Reference Range Interpretation Comments A/G Ratio (test code = A/G Ratio) 1.0 1 0.7-1.6 [facility] DQKHX5047-13-14 19:17:0025[facility]annCHEM PANEL 2020-04-03 19:17:0017[facility]annCHEM UQIGQ4038-33-38 19:17:64654Awotxxnd HermannCHEM KLJJE9503-82-19 19:17:000.5[facility] DcvsjymDDLRZAFZQF4188-42-75 19:17:007.9[facility] NsfgreoZXKDDRZJES8140-39-61 19:17:004.91[facility] UMUVUDAPHP6418-24-38 19:17:0013.5[facility] ZaccchpPJFGJIECTB7126-43-64 19:17:00 42.7[facility] HwwqdnqFFQVKHYXZJ8559-99-82 19:17:0086.8[facility]annHEMATOLOGY 2020-04-03 19:17:00* Test Item Value Reference Range Interpretation Comments MCH (test code = MCH) 27.4 pg 27.0-31.0 [facility] WooqaldXYYXAKXOUK6018-72-91 19:17:0031.6[facility]annHEMATOLOGY 2020-04-03 19:17:0019.5[facility] HtjspcuKMILWUVMMW2668-74-49 19:17:94819Yudkmtlx TcocxqdZFIXPQKJSA9788-50-00 19:17:007.7[facility] CcsszlhSNJRPVBJVJ4365-51-72 19:17:00* Test Item Value Reference Range Interpretation Comments R-time (test code = R-time) 5.0 min 5.0-10.0 [facility] HauyhdbEIMNBBNXVX1535-55-58 19:17:00* Test Item Value Reference Range Interpretation Comments K-time (test code = K-time) 1.4 min 1.0-3.0 [facility] GmtrsmeFGEFPLFAGI0344-65-22 19:17:00* Test Item Value Reference Range Interpretation Comments Angle (test code = Angle) 67.5 degrees 53.0-72.0 [facility] RcgecxpALAVILRZHI6247-60-96 19:17:00* Test Item Value Reference Range Interpretation Comments Max Amp (test code = Max Amp) 65.7 mm 50.0-70.0 [facility] VrurjxhDWAJSKWYNJ0078-08-63 19:17:009.6[facility]annHEMATOLOGY 2020-04-03 19:17:000.0[facility] UbjfqpgOCUOARZONQ5358-99-56 19:17:00* Test Item Value Reference Range Interpretation Comments Coag Index (test code = Coag Index) 1.6 1 <=3.0 [facility] IsikggoPWERGOTHMP4924-38-53 19:17:00See Note (04/03/20 2:17 PM)[facility] NaxmjhsYOVFSQYFXG6419-79-91 19:17:006.6[facility] BwdohuqXJTQIGURBT7373-80-51 19:17:000.6[facility] ZhrjhvvXPNAYENVYR3479-78-07 19:17:000.5[facility] XJGLNZGNFT0519-83-61 19:17:000.1[facility] MnlrkosQEVXSEZWZE8576-00-47 19:17:00 83.0[facility] MwpgeztIBJOFRLIEM0327-04-61 19:17:000.0[facility]annHEMATOLOGY 2020-04-03 19:17:008.0[facility] CojgpgtWAZOLMRZED0763-74-97 19:17:006.0[facility] VnjjkkbVHOZUZADZZ2716-48-13 19:17:001.0[facility] HhyvxdtNDQFLWIHKO1229-49-67 19:17:001.0[facility] GzcovamBKHWRSVYQU4848-45-12 19:17:001.0[facility] HIKQTEYGZE8704-52-74 19:17:000.0[facility] RcrrzuuHHYPVMCIMT8764-27-54 19:17:001 [facility] FwzksswKWHWZSAXGP4029-47-36 19:17:00Normal (04/03/20 2:17 PM)[facility] IyhduaeHZSNXPKVEB3209-32-79 19:17:001+ *ABN*(04/03/20 2:17 PM)[facility] [place] CMIOBHLNXS8807-07-29 19:17:0023.6[facility]annSPECIAL NTQCTYAEV8822-17-72 19:17:008.1[facility] [place]- XR FOOT 2 VIEWS [id number] 13:11:00 [facility] 1945 Age/S:74 /M [address] [facility] Unit#:[id number] Loc: [place] [address] Phys: Arsalan España MD Dis Date: PHONE #: [phone] Status: REG CLI FAX #: [phone] Exam Date: 03/28/2020 Re ason: DIATES EXAMS: CPT CODE: [id number] XR [place] [address] [place] [address] HISTORY: Diabetes. COM PARISON: Elbow x-ray from November 18, 2019. Location: [facility]. AP and lateral view of the left [...] t.SDR.TH4 Orig Print D/ T: S: 03/28/2020 (8904) PAGE 1 Si gned Report - XR ELBOW 2 VIEWS [id number] 13:11:00 Name: STEVE BENEDICT [facility] : 1945 Age/S:74 /M [address] [facility] Unit#:[id number] Loc: [place] [address] Phys: Arsalan España MD Dis Date: PHONE #: [phone] Status: REG CLI FAX #: [phone] Exam Date: 03/28/2020 Reason: DIATES EXAMS: CPT CODE: [id number] XR [place] [address] [place] [address] HISTORY: Diabetes. COMPARISON: Elbow x-ray from November 18, 2019. Location: [facility]. AP and lateral view of the left [...] Technologist: Mini Bangura RT(R)(CT) Trnscrpt Data: 03/28/2020 (8188) t.DENZELR.TH4 Orig Print D/T: S: 03/28/2020 (7785) PAGE 1 Signed Report [id number] 06:19:00* Test Item Value Reference Range Interpretation Comments GLUBED (test code = GLUBED) 98 mg/dL 74-106 N Performed by certified lay up operator at [facility] [id number] 20:32:00* Test Item Value Reference Range Interpretation Comments GLUBED (test code = GLUBED) 122 mg/dL 74-106 H Performed by certified lay up operator at [facility] [id number] 17:02:00* Test Item Value Reference Range Interpretation Comments GLUBED (test code = GLUBED) 193 mg/dL 74-106 H Performed by certified lay up operator at [facility] [id number] 17:02:00* Test Item Value Reference Range Interpretation Comments GLUBED (test code = GLUBED) 109 mg/dL 74-106 H Performed by certified lay up operator at [facility] BASIC METABOLIC [id number] 07:37:00* Test Item Value Reference Range Interpretation [...] code = CA) 9.6 mg/dL 8.5-10.1 N [id number] 07:37:00* Test Item Value Reference Range Interpretation Comments MAGNESIUM (test code = MAG) 2.4 mg/dL 1.8-2.4 N BASIC METABOLIC [id number] 06:36:00* Test Item Value Reference Range Interpretation [...] code = CA) 9.6 mg/dL 8.5-10.1 N PUAODHUZU2096-89-98 06:36:00* Test Item Value Reference Range Interpretation Comments MAGNESIUM (test code = MAG) 2.4 mg/dL 1.8-2.4 N [id number] 05:52:00* Test Item Value Reference Range Interpretation Comments GLUBED (test code = GLUBED) 99 mg/dL 74-106 N Performed by certified lay up operator at [facility] [id number] 05:25:00* Test Item Value Reference Range Interpretation Comments GLUBED (test code = GLUBED) 86 mg/dL 74-106 N Performed by certified lay up operator at [facility] - XR FOOT 2 VIEWS [id number] 18:31:00 FAX: Rosalie Weathers MD Scott: B St: ADM FAX: Teofilo Poon MD [phone] FAX: Sofia León NP [phone] Name: STEVE BENEDICT [facility] : 1945 Age/S: 74/M [address] Unit #: [id number] Loc: [place] [address] Phys: Sofia León NP Acct: [id number] Dis Date: Status: ADM IN ONE #: [phone] Exam Date: 11/29/2019 1745 FAX #: [phone] Reason: PAIN/SWELLING/REDNESS EXAMS: CPT CODE: [id number] XR FOOT [address] [place] [id number] REASON FOR EXAM: PAIN/SWELLING/REDNESS EXAM ORDER DATE: 11/29/2019 5:26 PM Ordering: Sofia León NP Attending:Rosalie Short MD Location:[facility] PROCEDURE: - XR FOOT 2 VIEWS LT [...] S: 11/29/2019 (1833) PAGE 1 Signed Report [id number] 17:02:00* Test Item Value Reference Range Interpretation Comments GLUBED (test code = GLUBED) 100 mg/dL 74-106 N Performed by certified lay up operator at [facility] [id number] 15:30:00* Test Item Value Reference Range Interpretation Comments GLUBED (test code = GLUBED) 124 mg/dL 74-106 H Performed by certified lay up operator at [facility] [id number] 07:13:00* Test Item Value Reference Range Interpretation Comments GLUBED (test code = GLUBED) 89 mg/dL 74-106 N Performed by certified lay up operator at [facility] [id number] 21:29:00* Test Item Value Reference Range Interpretation Comments GLUBED (test code = GLUBED) 114 mg/dL 74-106 H Performed by certified lay up operator at [facility] [id number] 18:21:00* Test Item Value Reference Range Interpretation Comments GLUBED (test code = GLUBED) 143 mg/dL 74-106 H Performed by certified lay up operator at [facility] [id number] 12:47:00* Test Item Value Reference Range Interpretation Comments GLUBED (test code = GLUBED) 101 mg/dL 74-106 N Performed by certified lay up operator at [facility] [id number] 09:08:00* Test Item Value Reference Range Interpretation Comments GLUBED (test code = GLUBED) 218 mg/dL 74-106 H Performed by certified lay up operator at [facility] BASIC METABOLIC [id number] 07:42:00* Test Item Value Reference Range Interpretation [...] code = CA) 9.9 mg/dL 8.5-10.1 N [id number] 07:02:00* Test Item Value Reference Range Interpretation Comments GLUBED (test code = GLUBED) 220 mg/dL 74-106 H Performed by certified lay up operator at [facility] [id number] 07:02:00* Test Item Value Reference Range Interpretation Comments GLUBED (test code = GLUBED) 44 mg/dL 74-106 LL Performed by certified lay up operator at [facility]DKA Protocol~ [id number] 07:02:00* Test Item Value Reference Range Interpretation Comments GLUBED (test code = GLUBED) 25 mg/dL 74-106 LL Test performed as P.O.C. by nursing staff.Performed by certified lay up operator at [facility] [id number] 07:02:00* Test Item Value Reference Range Interpretation Comments GLUBED (test code = GLUBED) 36 mg/dL 74-106 LL Performed by certified lay up operator at [facility] [id number] 07:02:00* Test Item Value Reference Range Interpretation Comments GLUBED (test code = GLUBED) 46 mg/dL 74-106 LL Performed by certified lay up operator at [facility]Notified Nurse~ BASIC METABOLIC [id number] 06:56:00* Test Item Value Reference Range Interpretation [...] CA) 9.9 mg/dL 8.5-10.1 N BASIC METABOLIC [id number] 06:48:00* Test Item Value Reference Range Interpretation [...] code = CA) mg/dL 8.5-10.1 CBC W/AUTO [id number] 06:48:00* Test Item Value Reference Range Interpretation [...] = MDIFF) NO, ONLY SCAN NEEDED DIFFERENTIAL [id number] 06:48:00* Test Item Value Reference Range Interpretation [...] (test code = PLTMORPH) NORMAL CBC W/AUTO [id number] 06:19:00* Test Item Value Reference Range Interpretation [...] = MDIFF) NO, ONLY SCAN NEEDED DIFFERENTIAL [id number] 06:19:00* Test Item Value Reference Range Interpretation Comments STAIN ACCEPTABILITY (test code = STN ACCEPTABLE) CABOT RINGS (test code = CAB) MORPHOLOGY COMMENT (test code = MOC) PLATELET ESTIMATE (test code = PLTEST) PLATELET MORPHOLOGY (test code = PLTMORPH) CBC W/AUTO [id number] 06:19:00* Test Item Value Reference Range Interpretation [...] = MDIFF) NO, ONLY SCAN NEEDED DIFFERENTIAL [id number] 06:19:00* Test Item Value Reference Range Interpretation Comments STAIN ACCEPTABILITY (test code = STN ACCEPTABLE) CABOT RINGS (test code = CAB) MORPHOLOGY COMMENT (test code = MOC) PLATELET ESTIMATE (test code = PLTEST) PLATELET MORPHOLOGY (test code = PLTMORPH) CBC W/AUTO [id number] 06:19:00* Test Item Value Reference Range Interpretation [...] = MDIFF) NO, ONLY SCAN NEEDED DIFFERENTIAL [id number] 06:19:00* Test Item Value Reference Range Interpretation Comments STAIN ACCEPTABILITY (test code = STN ACCEPTABLE) MORPHOLOGY COMMENT (test code = MOC) PLATELET ESTIMATE (test code = PLTEST) PLATELET MORPHOLOGY (test code = PLTMORPH) CBC W/AUTO [id number] 06:19:00* Test Item Value Reference Range Interpretation [...] = MDIFF) NO, ONLY SCAN NEEDED DIFFERENTIAL [id number] 06:19:00* Test Item Value Reference Range Interpretation Comments STAIN ACCEPTABILITY (test code = STN ACCEPTABLE) CABOT RINGS (test code = CAB) MORPHOLOGY COMMENT (test code = MOC) PLATELET ESTIMATE (test code = PLTEST) PLATELET MORPHOLOGY (test code = PLTMORPH) [id number] 22:06:00* Test Item Value Reference Range Interpretation Comments GLUBED (test code = GLUBED) 146 mg/dL 74-106 H Performed by certified lay up operator at [facility] [id number] 16:54:00* Test Item Value Reference Range Interpretation Comments GLUBED (test code = GLUBED) 143 mg/dL 74-106 H Performed by certified lay up operator at [facility] [id number] 12:27:00* Test Item Value Reference Range Interpretation Comments GLUBED (test code = GLUBED) 121 mg/dL 74-106 H Performed by certified lay up operator at [facility] [id number] 10:32:00* Test Item Value Reference Range Interpretation Comments GLUBED (test code = GLUBED) 64 mg/dL 74-106 L Performed by certified lay up operator at [facility] [id number] 07:13:00* Test Item Value Reference Range Interpretation Comments GLUBED (test code = GLUBED) 132 mg/dL 74-106 H Performed by certified lay up operator at [facility] BASIC METABOLIC [id number] 06:43:00* Test Item Value Reference Range Interpretation [...] CA) 9.5 mg/dL 8.5-10.1 N BASIC METABOLIC [id number] 06:39:00* Test Item Value Reference Range Interpretation [...] CALCIUM (test code = CA) mg/dL 8.5-10.1 [id number] 22:22:00* Test Item Value Reference Range Interpretation Comments GLUBED (test code = GLUBED) 136 mg/dL 74-106 H Performed by certified lay up operator at [facility] [id number] 17:04:00* Test Item Value Reference Range Interpretation Comments GLUBED (test code = GLUBED) 196 mg/dL 74-106 H Performed by certified lay up operator at [facility] [id number] 14:42:00* Test Item Value Reference Range Interpretation Comments MAGNESIUM (test code = MAG) 2.2 mg/dL 1.8-2.4 N [id number] 12:42:00* Test Item Value Reference Range Interpretation Comments GLUBED (test code = GLUBED) 128 mg/dL 74-106 H Performed by certified lay up operator at [facility] BASIC METABOLIC [id number] 07:40:00* Test Item Value Reference Range Interpretation [...] CA) 8.4 mg/dL 8.5-10.1 L BASIC METABOLIC [id number] 07:31:00* Test Item Value Reference Range Interpretation [...] CALCIUM (test code = CA) mg/dL 8.5-10.1 [id number] 06:15:00* Test Item Value Reference Range Interpretation Comments GLUBED (test code = GLUBED) 153 mg/dL 74-106 H Performed by certified lay up operator at [facility] [id number] 20:40:00* Test Item Value Reference Range Interpretation Comments GLUBED (test code = GLUBED) 150 mg/dL 74-106 H Performed by certified lay up operator at [facility] [id number] 17:55:00* Test Item Value Reference Range Interpretation Comments GLUBED (test code = GLUBED) 133 mg/dL 74-106 H Performed by certified lay up operator at [facility] [id number] 14:38:00* Test Item Value Reference Range Interpretation Comments GLUBED (test code = GLUBED) 153 mg/dL 74-106 H Performed by certified lay up operator at [facility] BASIC METABOLIC [id number] 07:10:00* Test Item Value Reference Range Interpretation [...] CA) 8.2 mg/dL 8.5-10.1 L BASIC METABOLIC [id number] 07:05:00* Test Item Value Reference Range Interpretation [...] CALCIUM (test code = CA) mg/dL 8.5-10.1 [id number] 06:32:00* Test Item Value Reference Range Interpretation Comments GLUBED (test code = GLUBED) 120 mg/dL 74-106 H Performed by certified lay up operator at [facility] CBC W/AUTO [id number] 04:46:00* Test Item Value Reference Range Interpretation [...] = MDIFF) NO, ONLY SCAN NEEDED DIFFERENTIAL [id number] 04:46:00* Test Item Value Reference Range Interpretation Comments STAIN ACCEPTABILITY (test code = STN ACCEPTABLE) STAIN ACCEPTABLE POLYCHROMASIA (test code = POLC) 1+ BASOPHILIC STIPPLING (test code = STP) 1+ ANISOCYTOSIS (test code = ANISO) 2+ MICROCYTOSIS (test code = MICR) 2+ PLATELET ESTIMATE (test code = PLTEST) ADEQUATE PLATELET MORPHOLOGY (test code = PLTMORPH) NORMAL BASIC METABOLIC [id number] 04:40:00* Test Item Value Reference Range Interpretation [...] CA) 8.4 mg/dL 8.5-10.1 L BASIC METABOLIC [id number] 04:33:00* Test Item Value Reference Range Interpretation [...] code = CA) mg/dL 8.5-10.1 CBC W/AUTO [id number] 04:26:00* Test Item Value Reference Range Interpretation [...] = MDIFF) NO, ONLY SCAN NEEDED DIFFERENTIAL [id number] 04:26:00* Test Item Value Reference Range Interpretation Comments STAIN ACCEPTABILITY (test code = STN ACCEPTABLE) CABOT RINGS (test code = CAB) MORPHOLOGY COMMENT (test code = MOC) PLATELET ESTIMATE (test code = PLTEST) PLATELET MORPHOLOGY (test code = PLTMORPH) CBC W/AUTO [id number] 04:26:00* Test Item Value Reference Range Interpretation [...] = MDIFF) NO, ONLY SCAN NEEDED DIFFERENTIAL [id number] 04:26:00* Test Item Value Reference Range Interpretation Comments STAIN ACCEPTABILITY (test code = STN ACCEPTABLE) CABOT RINGS (test code = CAB) MORPHOLOGY COMMENT (test code = MOC) PLATELET ESTIMATE (test code = PLTEST) PLATELET MORPHOLOGY (test code = PLTMORPH) CBC W/AUTO [id number] 04:26:00* Test Item Value Reference Range Interpretation [...] = MDIFF) NO, ONLY SCAN NEEDED DIFFERENTIAL [id number] 04:26:00* Test Item Value Reference Range Interpretation Comments STAIN ACCEPTABILITY (test code = STN ACCEPTABLE) MORPHOLOGY COMMENT (test code = MOC) PLATELET ESTIMATE (test code = PLTEST) PLATELET MORPHOLOGY (test code = PLTMORPH) CBC W/AUTO [id number] 04:26:00* Test Item Value Reference Range Interpretation [...] = MDIFF) NO, ONLY SCAN NEEDED DIFFERENTIAL [id number] 04:26:00* Test Item Value Reference Range Interpretation Comments STAIN ACCEPTABILITY (test code = STN ACCEPTABLE) CABOT RINGS (test code = CAB) MORPHOLOGY COMMENT (test code = MOC) PLATELET ESTIMATE (test code = PLTEST) PLATELET MORPHOLOGY (test code = PLTMORPH) [id number] 20:04:00* Test Item Value Reference Range Interpretation Comments GLUBED (test code = GLUBED) 118 mg/dL 74-106 H Performed by certified lay up operator at [facility] [id number] 16:46:00* Test Item Value Reference Range Interpretation Comments GLUBED (test code = GLUBED) 123 mg/dL 74-106 H Performed by certified lay up operator at [facility] [id number] 12:44:00* Test Item Value Reference Range Interpretation Comments GLUBED (test code = GLUBED) 98 mg/dL 74-106 N Performed by certified lay up operator at [facility] BASIC METABOLIC [id number] 09:25:00* Test Item Value Reference Range Interpretation [...] CA) 8.1 mg/dL 8.5-10.1 L BASIC METABOLIC [id number] 09:22:00* Test Item Value Reference Range Interpretation [...] CALCIUM (test code = CA) mg/dL 8.5-10.1 [id number] 07:41:00* Test Item Value Reference Range Interpretation Comments GLUBED (test code = GLUBED) 189 mg/dL 74-106 H Performed by certified lay up operator at [facility] [id number] 07:41:00* Test Item Value Reference Range Interpretation Comments GLUBED (test code = GLUBED) 24 mg/dL 74-106 LL Test performed as P.O.C. by nursing staff.Performed by certified lay up operator at [facility] LACTIC [id number] 23:39:00* Test Item Value Reference Range Interpretation Comments LACTIC ACID (test code = LACT) 1.8 mmol/L 0.4-1.9 N [id number] 23:25:00* Test Item Value Reference Range Interpretation Comments POTASSIUM (test code = K) 3.8 mmol/L 3.5-5.1 N [id number] 23:25:00* Test Item Value Reference Range Interpretation Comments MAGNESIUM (test code = MAG) 2.0 mg/dL 1.8-2.4 N [id number] 23:24:00* Test Item Value Reference Range Interpretation Comments POTASSIUM (test code = K) 3.8 mmol/L 3.5-5.1 N [id number] 23:24:00* Test Item Value Reference Range Interpretation Comments MAGNESIUM (test code = MAG) mg/dL 1.8-2.4 CBC W/AUTO [id number] 06:16:00* Test Item Value Reference Range Interpretation [...] = MDIFF) NO, ONLY SCAN NEEDED DIFFERENTIAL [id number] 06:16:00* Test Item Value Reference Range Interpretation Comments STAIN ACCEPTABILITY (test code = STN ACCEPTABLE) STAIN ACCEPTABLE ANISOCYTOSIS (test code = ANISO) 1+ MICROCYTOSIS (test code = MICR) 1+ PLATELET ESTIMATE (test code = PLTEST) DECREASED PLATELET MORPHOLOGY (test code = PLTMORPH) NORMAL BASIC METABOLIC [id number] 05:59:00* Test Item Value Reference Range Interpretation [...] code = CA) 8.2 mg/dL 8.5-10.1 L [id number] 05:59:00* Test Item Value Reference Range Interpretation Comments MAGNESIUM (test code = MAG) 2.2 mg/dL 1.8-2.4 N BASIC METABOLIC [id number] 05:54:00* Test Item Value Reference Range Interpretation [...] CALCIUM (test code = CA) mg/dL 8.5-10.1 [id number] 05:54:00* Test Item Value Reference Range Interpretation Comments MAGNESIUM (test code = MAG) mg/dL 1.8-2.4 CBC W/AUTO [id number] 05:49:00* Test Item Value Reference Range Interpretation [...] = MDIFF) NO, ONLY SCAN NEEDED DIFFERENTIAL [id number] 05:49:00* Test Item Value Reference Range Interpretation Comments STAIN ACCEPTABILITY (test code = STN ACCEPTABLE) CABOT RINGS (test code = CAB) MORPHOLOGY COMMENT (test code = MOC) PLATELET ESTIMATE (test code = PLTEST) PLATELET MORPHOLOGY (test code = PLTMORPH) CBC W/AUTO [id number] 05:49:00* Test Item Value Reference Range Interpretation [...] = MDIFF) NO, ONLY SCAN NEEDED DIFFERENTIAL [id number] 05:49:00* Test Item Value Reference Range Interpretation Comments STAIN ACCEPTABILITY (test code = STN ACCEPTABLE) CABOT RINGS (test code = CAB) MORPHOLOGY COMMENT (test code = MOC) PLATELET ESTIMATE (test code = PLTEST) PLATELET MORPHOLOGY (test code = PLTMORPH) CBC W/AUTO [id number] 05:49:00* Test Item Value Reference Range Interpretation [...] = MDIFF) NO, ONLY SCAN NEEDED DIFFERENTIAL [id number] 05:49:00* Test Item Value Reference Range Interpretation Comments STAIN ACCEPTABILITY (test code = STN ACCEPTABLE) MORPHOLOGY COMMENT (test code = MOC) PLATELET ESTIMATE (test code = PLTEST) PLATELET MORPHOLOGY (test code = PLTMORPH) CBC W/AUTO [id number] 05:49:00* Test Item Value Reference Range Interpretation [...] = MDIFF) NO, ONLY SCAN NEEDED DIFFERENTIAL [id number] 05:49:00* Test Item Value Reference Range Interpretation Comments STAIN ACCEPTABILITY (test code = STN ACCEPTABLE) CABOT RINGS (test code = CAB) MORPHOLOGY COMMENT (test code = MOC) PLATELET ESTIMATE (test code = PLTEST) PLATELET MORPHOLOGY (test code = PLTMORPH) - XR ABDOMEN AP 1 [id number] 22:21:00 FAX: Rosalie Weathers MD Scott: St: ADM FAX: Teofilo Poon MD [phone] FAX: Sofia León NP [phone] Name: STEVE BENEDICT [facility] : 1945 Age/S: 74/[facility] [address] [facility] [id number] Loc: V.[address] [place] [address] Phys: Sofia León NP Acct: [id number] Dis Date: Status: ADM IN [facility] #: [phone] Exam Date: 11/22/20191807 FAX #: [phone] Reason: abdominal pain EXAMS: CPT CODE: [id number] XR ABDOMEN AP 1 V 39076 EXAM: Abdomen, 2 views; INFORMATION: Abdominal pain; IMPRESSION: 1. Large amount of stool in the descending transverse and proximal descending colon; 2. Otherwise, unremarkable bowel gas pattern; no e vidence of obstruction or other acute abnormalities. 3. No abnor mal calcifications. Location code: [facility] El ectronically Signed by Elroy Huff on 11/22 at 2221 Reported and signed by: Isaiah Huff M.D. CC: Rosalie Short; Teofilo Summers MD; Sofia Saavedra NP Technologist: FANTASMA HutsonR Trnscrd Date/Time/By: 11/22/2019 (2221) : By: TyroneGRW Orig Print D/T: S: 11/22/2019 (1433) PAGE 1 Signed Report [id number] 16:22:00* Test Item Value Reference Range Interpretation Comments GLUBED (test code = GLUBED) 101 mg/dL 74-106 N Performed by certified lay up operator at [facility]Notified Nurse~ [id number] 12:23:00* Test Item Value Reference Range Interpretation Comments GLUBED (test code = GLUBED) 106 mg/dL 74-106 N Performed by certified lay up operator at [facility] [id number] 08:34:00* Test Item Value Reference Range Interpretation Comments GLUBED (test code = GLUBED) 75 mg/dL 74-106 N Performed by certified lay up operator at [facility] BLOOD UREA [id number] 05:39:00* Test Item Value Reference Range Interpretation Comments BLOOD UREA NITROGEN (test code = BUN) 39 mg/dL 7-18 H [id number] 05:39:00* Test Item Value Reference Range Interpretation Comments CREATININE (test code = CREAT) 1.40 mg/dL 0.7-1.3 H BLOOD UREA [id number] 05:34:00* Test Item Value Reference Range Interpretation Comments BLOOD UREA NITROGEN (test code = BUN) 39 mg/dL 7-18 H [id number] 05:34:00* Test Item Value Reference Range Interpretation Comments CREATININE (test code = CREAT) mg/dL 0.7-1.3 [id number] 21:18:00* Test Item Value Reference Range Interpretation Comments GLUBED (test code = GLUBED) 143 mg/dL 74-106 H Performed by certified lay up operator at [facility] [id number] 16:14:00* Test Item Value Reference Range Interpretation Comments GLUBED (test code = GLUBED) 120 mg/dL 74-106 H Performed by certified lay up operator at [facility] [id number] 16:14:00* Test Item Value Reference Range Interpretation Comments GLUBED (test code = GLUBED) 123 mg/dL 74-106 H Performed by certified lay up operator at [facility] [id number] 08:04:00* Test Item Value Reference Range Interpretation Comments GLUBED (test code = GLUBED) 122 mg/dL 74-106 H Performed by certified lay up operator at [facility] BASIC METABOLIC [id number] 06:42:00* Test Item Value Reference Range Interpretation [...] CA) 8.7 mg/dL 8.5-10.1 N BASIC METABOLIC [id number] 06:37:00* Test Item Value Reference Range Interpretation [...] code = CA) mg/dL 8.5-10.1 CBC W/AUTO [id number] 06:33:00* Test Item Value Reference Range Interpretation [...] = MDIFF) NO, ONLY SCAN NEEDED DIFFERENTIAL [id number] 06:33:00* Test Item Value Reference Range Interpretation Comments STAIN ACCEPTABILITY (test code = STN ACCEPTABLE) STAIN ACCEPTABLE POLYCHROMASIA (test code = POLC) 1+ POIKILOCYTOSIS (test code = POIK) 1+ ANISOCYTOSIS (test code = ANISO) 1+ MICROCYTOSIS (test code = MICR) 1+ ELLIPTOCYTES (test code = ELL) 1+ PLATELET ESTIMATE (test code = PLTEST) ADEQUATE PLATELET MORPHOLOGY (test code = PLTMORPH) NORMAL CBC W/AUTO [id number] 06:13:00* Test Item Value Reference Range Interpretation [...] = MDIFF) NO, ONLY SCAN NEEDED DIFFERENTIAL [id number] 06:13:00* Test Item Value Reference Range Interpretation Comments STAIN ACCEPTABILITY (test code = STN ACCEPTABLE) CABOT RINGS (test code = CAB) MORPHOLOGY COMMENT (test code = MOC) PLATELET ESTIMATE (test code = PLTEST) PLATELET MORPHOLOGY (test code = PLTMORPH) CBC W/AUTO [id number] 06:13:00* Test Item Value Reference Range Interpretation [...] = MDIFF) NO, ONLY SCAN NEEDED DIFFERENTIAL [id number] 06:13:00* Test Item Value Reference Range Interpretation Comments STAIN ACCEPTABILITY (test code = STN ACCEPTABLE) MORPHOLOGY COMMENT (test code = MOC) PLATELET ESTIMATE (test code = PLTEST) PLATELET MORPHOLOGY (test code = PLTMORPH) CBC W/AUTO [id number] 06:12:00* Test Item Value Reference Range Interpretation [...] = MDIFF) NO, ONLY SCAN NEEDED DIFFERENTIAL [id number] 06:12:00* Test Item Value Reference Range Interpretation Comments STAIN ACCEPTABILITY (test code = STN ACCEPTABLE) CABOT RINGS (test code = CAB) MORPHOLOGY COMMENT (test code = MOC) PLATELET ESTIMATE (test code = PLTEST) PLATELET MORPHOLOGY (test code = PLTMORPH) CBC W/AUTO [id number] 06:12:00* Test Item Value Reference Range Interpretation [...] = MDIFF) NO, ONLY SCAN NEEDED DIFFERENTIAL [id number] 06:12:00* Test Item Value Reference Range Interpretation Comments STAIN ACCEPTABILITY (test code = STN ACCEPTABLE) CABOT RINGS (test code = CAB) MORPHOLOGY COMMENT (test code = MOC) PLATELET ESTIMATE (test code = PLTEST) PLATELET MORPHOLOGY (test code = PLTMORPH) [id number] 04:54:00* Test Item Value Reference Range Interpretation Comments GLUBED (test code = GLUBED) 124 mg/dL 74-106 H Performed by certified lay up operator at [facility] [id number] 21:26:00* Test Item Value Reference Range Interpretation Comments GLUBED (test code = GLUBED) 193 mg/dL 74-106 H Performed by certified lay up operator at [facility] [id number] 17:23:00* Test Item Value Reference Range Interpretation Comments GLUBED (test code = GLUBED) 159 mg/dL 74-106 H Performed by certified lay up operator at [facility] [id number] 13:36:00* Test Item Value Reference Range Interpretation Comments GLUBED (test code = GLUBED) 145 mg/dL 74-106 H Performed by certified lay up operator at [facility] [id number] 08:14:00* Test Item Value Reference Range Interpretation Comments GLUBED (test code = GLUBED) 89 mg/dL 74-106 N Performed by certified lay up operator at [facility] CBC W/AUTO [id number] 06:16:00* Test Item Value Reference Range Interpretation [...] = MDIFF) NO, ONLY SCAN NEEDED DIFFERENTIAL [id number] 06:16:00* Test Item Value Reference Range Interpretation Comments STAIN ACCEPTABILITY (test code = STN ACCEPTABLE) STAIN ACCEPTABLE POLYCHROMASIA (test code = POLC) 1+ POIKILOCYTOSIS (test code = POIK) 1+ ANISOCYTOSIS (test code = ANISO) 2+ MICROCYTOSIS (test code = MICR) 2+ OVALOCYTES (test code = OVAL) 1+ PLATELET ESTIMATE (test code = PLTEST) ADEQUATE PLATELET MORPHOLOGY (test code = PLTMORPH) NORMAL BASIC METABOLIC [id number] 06:16:00* Test Item Value Reference Range Interpretation [...] CA) 8.3 mg/dL 8.5-10.1 L BASIC METABOLIC [id number] 06:06:00* Test Item Value Reference Range Interpretation [...] code = CA) mg/dL 8.5-10.1 CBC W/AUTO [id number] 05:46:00* Test Item Value Reference Range Interpretation [...] = MDIFF) NO, ONLY SCAN NEEDED DIFFERENTIAL [id number] 05:46:00* Test Item Value Reference Range Interpretation Comments STAIN ACCEPTABILITY (test code = STN ACCEPTABLE) CABOT RINGS (test code = CAB) MORPHOLOGY COMMENT (test code = MOC) PLATELET ESTIMATE (test code = PLTEST) PLATELET MORPHOLOGY (test code = PLTMORPH) CBC W/AUTO [id number] 05:46:00* Test Item Value Reference Range Interpretation [...] = MDIFF) NO, ONLY SCAN NEEDED DIFFERENTIAL [id number] 05:46:00* Test Item Value Reference Range Interpretation Comments STAIN ACCEPTABILITY (test code = STN ACCEPTABLE) MORPHOLOGY COMMENT (test code = MOC) PLATELET ESTIMATE (test code = PLTEST) PLATELET MORPHOLOGY (test code = PLTMORPH) CBC W/AUTO [id number] 05:45:00* Test Item Value Reference Range Interpretation [...] = MDIFF) NO, ONLY SCAN NEEDED DIFFERENTIAL [id number] 05:45:00* Test Item Value Reference Range Interpretation Comments STAIN ACCEPTABILITY (test code = STN ACCEPTABLE) CABOT RINGS (test code = CAB) MORPHOLOGY COMMENT (test code = MOC) PLATELET ESTIMATE (test code = PLTEST) PLATELET MORPHOLOGY (test code = PLTMORPH) CBC W/AUTO [id number] 05:45:00* Test Item Value Reference Range Interpretation [...] = MDIFF) NO, ONLY SCAN NEEDED DIFFERENTIAL [id number] 05:45:00* Test Item Value Reference Range Interpretation Comments STAIN ACCEPTABILITY (test code = STN ACCEPTABLE) CABOT RINGS (test code = CAB) MORPHOLOGY COMMENT (test code = MOC) PLATELET ESTIMATE (test code = PLTEST) PLATELET MORPHOLOGY (test code = PLTMORPH) [id number] 20:52:00* Test Item Value Reference Range Interpretation Comments GLUBED (test code = GLUBED) 128 mg/dL 74-106 H Performed by certified lay up operator at [facility] [id number] 18:34:00* Test Item Value Reference Range Interpretation Comments GLUBED (test code = GLUBED) 118 mg/dL 74-106 H Performed by certified lay up operator at [facility] [id number] 18:34:00* Test Item Value Reference Range Interpretation Comments GLUBED (test code = GLUBED) 100 mg/dL 74-106 N Performed by certified lay up operator at [facility] [id number] 08:41:00* Test Item Value Reference Range Interpretation Comments GLUBED (test code = GLUBED) 108 mg/dL 74-106 H Performed by certified lay up operator at [facility] CBC W/AUTO [id number] 06:21:00* Test Item Value Reference Range Interpretation [...] = MDIFF) NO, ONLY SCAN NEEDED DIFFERENTIAL [id number] 06:21:00* Test Item Value Reference Range Interpretation Comments STAIN ACCEPTABILITY (test code = STN ACCEPTABLE) STAIN ACCEPTABLE ANISOCYTOSIS (test code = ANISO) 1+ MICROCYTOSIS (test code = MICR) 1+ PLATELET ESTIMATE (test code = PLTEST) ADEQUATE PLATELET MORPHOLOGY (test code = PLTMORPH) NORMAL BASIC METABOLIC [id number] 05:30:00* Test Item Value Reference Range Interpretation [...] This LDL result is a direct measurement.========= [id number] 05:30:00* Test Item Value Reference Range Interpretation Comments PHOSPHORUS (test code = PHOS) 1.9 mg/dL 2.5-4.9 L [id number] 05:30:00* Test Item Value Reference Range Interpretation Comments MAGNESIUM (test code = MAG) 2.5 mg/dL 1.8-2.4 H THYROID STIMULATING [id number] 05:30:00* Test Item Value Reference Range Interpretation Comments THYROID STIMULATING HORMONE (test code = TSH) 5.000 uIU/mL 0.36-3.7 4 H TSH REFERENCE RANGES: EUTHYROID: 0.35 - 4.3 mIU/mL HYPO : > 5.5 mIU/mL HYPER : < 0.35 mIU/mL B-TYPE NATRIURETIC [id number] 05:27:00* Test Item Value Reference Range Interpretation Comments B-TYPE NATRIURETIC PEPTIDE (test code = BNP) 112.32 pgram/mL 0-100 H CBC W/AUTO [id number] 05:27:00* Test Item Value Reference Range Interpretation [...] = MDIFF) NO, ONLY SCAN NEEDED DIFFERENTIAL [id number] 05:27:00* Test Item Value Reference Range Interpretation Comments STAIN ACCEPTABILITY (test code = STN ACCEPTABLE) STAIN ACCEPTABLE ANISOCYTOSIS (test code = ANISO) 1+ MICROCYTOSIS (test code = MICR) 1+ MORPHOLOGY COMMENT (test code = MOC) NORMAL PLATELET ESTIMATE (test code = PLTEST) ADEQUATE PLATELET MORPHOLOGY (test code = PLTMORPH) NORMAL BASIC METABOLIC [id number] 05:15:00* Test Item Value Reference Range Interpretation [...] LDL (test code = LDL) mg/dL 100-129 [id number] 05:15:00* Test Item Value Reference Range Interpretation Comments PHOSPHORUS (test code = PHOS) mg/dL 2.5-4.9 [id number] 05:15:00* Test Item Value Reference Range Interpretation Comments MAGNESIUM (test code = MAG) mg/dL 1.8-2.4 THYROID STIMULATING [id number] 05:15:00* Test Item Value Reference Range Interpretation Comments THYROID STIMULATING HORMONE (test code = TSH) uIU/mL 0.36-3.7 4 [id number] 05:08:00* Test Item Value Reference Range Interpretation Comments GLYCOSYLATED HEMOGLOBIN (HA1C) (test code = GLYHGB) 6.9 % HbA1 SUGGESTED DIAGNOSIS: HbA1C (%) Diabetic >6.4Prediabetes 5.7 - 6.4Normal <5.7 ESTIMATED AVERAGE GLUCOSE (test code = EAG) 151 MG/DL CBC W/AUTO [id number] 04:59:00* Test Item Value Reference Range Interpretation [...] = MDIFF) NO, ONLY SCAN NEEDED DIFFERENTIAL [id number] 04:59:00* Test Item Value Reference Range Interpretation Comments STAIN ACCEPTABILITY (test code = STN ACCEPTABLE) CABOT RINGS (test code = CAB) MORPHOLOGY COMMENT (test code = MOC) PLATELET ESTIMATE (test code = PLTEST) PLATELET MORPHOLOGY (test code = PLTMORPH) CBC W/AUTO [id number] 04:59:00* Test Item Value Reference Range Interpretation [...] = MDIFF) NO, ONLY SCAN NEEDED DIFFERENTIAL [id number] 04:59:00* Test Item Value Reference Range Interpretation Comments STAIN ACCEPTABILITY (test code = STN ACCEPTABLE) CABOT RINGS (test code = CAB) MORPHOLOGY COMMENT (test code = MOC) PLATELET ESTIMATE (test code = PLTEST) PLATELET MORPHOLOGY (test code = PLTMORPH) CBC W/AUTO [id number] 04:59:00* Test Item Value Reference Range Interpretation [...] = MDIFF) NO, ONLY SCAN NEEDED DIFFERENTIAL [id number] 04:59:00* Test Item Value Reference Range Interpretation Comments STAIN ACCEPTABILITY (test code = STN ACCEPTABLE) MORPHOLOGY COMMENT (test code = MOC) PLATELET ESTIMATE (test code = PLTEST) PLATELET MORPHOLOGY (test code = PLTMORPH) CBC W/AUTO [id number] 04:58:00* Test Item Value Reference Range Interpretation [...] = MDIFF) NO, ONLY SCAN NEEDED DIFFERENTIAL [id number] 04:58:00* Test Item Value Reference Range Interpretation Comments STAIN ACCEPTABILITY (test code = STN ACCEPTABLE) CABOT RINGS (test code = CAB) MORPHOLOGY COMMENT (test code = MOC) PLATELET ESTIMATE (test code = PLTEST) PLATELET MORPHOLOGY (test code = PLTMORPH) [id number] 20:45:00* Test Item Value Reference Range Interpretation Comments GLUBED (test code = GLUBED) 181 mg/dL 74-106 H Performed by certified lay up operator at [facility] [id number] 16:47:00* Test Item Value Reference Range Interpretation Comments GLUBED (test code = GLUBED) 204 mg/dL 74-106 H Performed by certified lay up operator at [facility] URINALYSIS [id number] 12:34:00* Test Item Value Reference Range Interpretation [...] AMORU) MANY #/LPF Urine Source? Clean CatchURINALYSIS [id number] 12:33:00* Test Item Value Reference Range Interpretation [...] BACU) per HPF NONE Urine Source? Clean [id number] 11:40:00* Test Item Value Reference Range Interpretation Comments GLUBED (test code = GLUBED) 124 mg/dL 74-106 H Performed by certified lay up operator at [facility] - XR ELBOW 3 + V [id number] 07:29:00 FAX: Teofilo Poon MD [phone] Scott: St: REG FAX: Alejandro Powers DO Name: STEVE BENEDICT [facility] : 1945 Age/S: 74/M [address] [facility] Unit #: [id number] Loc: [place] [address] Phys: Alejandro Powers DO Acct: [id number] Dis Date: Status: REG ER PHONE #: [phone] Exam Date: 11/18/2019 0655 FAX #: [phone] Reason: pain EXAMS: CPT CODE: [id number] XR ELBOW 3 + V LT [address] HISTORY: Pain. COMPARISON: May 05, 2019. Location: TH. Moderate soft tissue swelling along the olecranon process suggesting olecranon bursitis. No acute fracture or dislocation. No elbow joint fluid is noted. Mineralization is normal. IMPRESSION: No acute fracture or dislocation or joint fluid. Moderate soft tissue swelling along the olecranon process suggestive of olecranon bursitis. at 0798 Reported and signed by: Tyler Subramanian M.D. CC: Teofilo Summers MD; Alejandro Powers DO Technologist: Colette Ramirez(R) Trnscrd Date/Time/By: 11/18/2019 (0569) : By: [email or web address] Orig Print D /T: S: 11/18/2019 (8506) PAGE 1 S igned Report - CT C-SPINE W/O [id number] 06:50:00 Name: STEVE BENEDICT [facility] : 1945 Age/S: 74 / M [address] [facility] Unit #: [id number] Loc: [place] [address] Phys: Alejandro Powers DO Acct: [id number] Dis Date: Status: REG ER PHONE #: [phone] Exam Date: 11/18/2019556 FAX #: [phone] Reason: Neck Pain EXAMS: CPT CODE: [id number] CT C-SPINE W/O CONTRAST 83860 DICTATION LOCATION: 8 HISTORY: Male, 74 years [...] (0650) TyroneCLW Orig Print D/T: S: 11/18/2019 (0606) PAGE 1 Signed Report - CT HEAD/BRAIN W/O [id number] 06:48:00 Name: STEVE BENEDICT [facility] : 1945 Age/S: 74 / M [address] [facility] Unit #: [id number] Loc: [place] [address] Phys: Alejandro Powers DO Acct: [id number] Dis Date: Status: REG ER PHONE #: [phone] Exam Date: 11/18/2019 0550 FAX #: [phone] Reason: HEADACHE EXAMS: CPT CODE: [id number] CT HEAD/BRAIN W/O CONT 37823 DICTATION LOCATION: H48 HISTORY: Male, 74 years [...] 0648 Reported and sign ed by: Berenice Bernal MD CC: Teofilo Summers MD; Alejandro Powers DO Technologist:JIMY DEJESUS CTDI: DLP: Trnscb Date/Time: 11/18/2019 (0648) Chloe.DARLIN Riley P rint D/T: S: 11/18/2019 (0691) PAGE 1 Signed Report BASIC METABOLIC [id number] 06:35:00* Test Item Value Reference Range Interpretation [...] CA) 8.9 mg/dL 8.5-10.1 N HEPATIC FUNCTION [id number] 06:35:00* Test Item Value Reference Range Interpretation [...] reference range due to change in reagent. [id number] 06:35:00* Test Item Value Reference Range Interpretation Comments TROPONIN-I (test code = TROPI) 0.018 ng/mL 0-0.045 N BASIC METABOLIC [id number] 06:24:00* Test Item Value Reference Range Interpretation [...] code = CA) mg/dL 8.5-10.1 HEPATIC FUNCTION [id number] 06:24:00* Test Item Value Reference Range Interpretation [...] TOTAL (test code = ALKP) IUnit/L 45-117 GMSKHAEN-O2468-07-23 06:24:00* Test Item Value Reference Range Interpretation Comments TROPONIN-I (test code = TROPI) ng/mL 0-0.045 CBC W/O [id number] 06:21:00* Test Item Value Reference Range Interpretation [...] fL 6.7-11.0 N - XR CHEST 1 [id number] 05:53:00 FAX: Teofilo Poon MD [phone] Scott: St: [facility] FAX: Alejandro Powers DO Name: STEVE BENEDICT [facility] : 1945 Age/S: 74/M [address] Unit #: [id number] Loc: [place] [address] Phys: Alejandro Powers DO Acct: [id number] Dis Date: Status: REG ER PHONE #: [phone] Exam Date: 11/18/2019537 FAX #: [phone] Reason: CHEST PAIN EXAMS: CPT CODE: [id number] XR CHEST 1 V 01604 EXAM: XR Chest 1 View INDICATION: CHEST [...] S: 11/18/2019 (0556) PAGE 1 Signed Report [id number] 17:01:00* Test Item Value Reference Range Interpretation Comments PT (test code = PT) 13.6 s 12.0-14.7 [facility] SfekhzmPWYJLAPCEP5054-06-86 17:01:00* Test Item Value Reference Range Interpretation Comments INR (test code = INR) 1.04 1 0.85-1.17 [facility] VgevsziHXRPXVUOUM9154-94-98 17:01:00* Test Item Value Reference Range Interpretation Comments PTT (test code = PTT) 25.1 s 22.9-35.8 [employer] [id number] 16:59:00Negative (11/10/19 10:59 AM) [employer] [id number] 16:59:00Product available (11/10/19 10:59 AM)[facility] [facility] [id number] 16:59:75985Dayhfxxb dBMEDx XFHFQ1022-16-02 16:59:0049[facility] dBMEDx MWSPF3660-16-59 16:59:001.51 [facility] FTQZP1302-06-35 16:59:01547Tjszjmlg HermannCHEM PANEL 2019-11-10 16:59:003.4[facility]annCHEM KILYQ2484-38-81 16:59:0093[facility]ann[facility] EQOQZ0935-67-01 16:59:0036[facility]ann[facility] JQCSQ2144-24-53 16:59:008.8[facility]ann[facility] MYCPV0189-38-57 16:59:0012.4[facility] XBMWQ5588-86-69 16:59:0045[facility]annCHE[facility] EYETK8881-63-45 16:59:002.1 [facility] FszcaerIFWLTSCIQN0807-97-80 16:59:0088.7[facility]annHEMATOLOGY 2019-11-10 16:59:006.8[facility] FfsrbocJIIXMPYQLM9728-96-20 16:59:004.4[facility] IivllzyZFQJLJVOGP3133-71-04 16:59:000.1[facility] IqfxtnhVTUCXDSRMQ5422-25-38 16:59:009.3[facility] NpagodvPTBWXAXAKI2357-17-14 16:59:000.7[facility] [place] [facility] FSATGVPQHV7349-62-31 16:59:000.5[facility] AqxaowjJEWMBDSVNV0889-13-33 16:59:00 10.5[facility] HnsselvXVEDXWYRTD2923-23-19 16:59:004.95[facility]annHEMATOLOGY 2019-11-10 16:59:0012.4[facility] VbqnpzeHCFZHAZSZW4030-15-22 16:59:0039.2[facility] KvucsseXDPPDBCRTD6580-57-18 16:59:0079.2[facility] EszraqiSGOREQJUHU7630-22-00 16:59:00* Test Item Value Reference Range Interpretation Comments MCH (test code = MCH) 25.1 pg 27.0-31.0 [facility] ZceeqrkSJOBVTMFWL5725-31-78 16:59:0031.7[facility]annHEMATOLOGY 2019-11-10 16:59:0019.6[facility] MpgajplBMVSVWVIVM6034-59-89 16:59:25108Azvgzzgf UqwiyxgGBCHKAVZLU1309-59-71 16:59:008.1[facility] HermannCHEM IHQOM9644-27-11 00:05:19230Jgmvbpmm HermannCHEM SOJTU0762-76-50 00:05:0751[facility]annCHEM PFBVC6928-44-30 00:05:071.65[facility]annCHE[facility] CTTSB9912-07-23 00:05:32182 [facility] CRUJR0440-85-07 00:05:073.8[facility] HermannCHEM PANEL 2019-10-17 00:05:0799[facility]annCHEM WUOED8388-73-08 00:05:0740[facility]annCHEM DJMWY0086-63-54 00:05:074.8[facility]annCHE[facility] CJPFB5506-99-88 00:05:079.1[facility]annCHEM SODYR7108-57-72 00:05:0740[facility] Vivek GDYOLPUYEH4648-65-66 00:05:078.4[facility] DaznwwbTQFOJEJPST3624-13-97 00:05:071.5 [facility] TmnwmqoZAYKMJLOKK2087-43-31 00:05:070.7[facility] HermannHEMATOLOGY 2019-10-17 00:05:0778.0[facility] PmckbjbBSMRSBRTJI4968-83-38 00:05:071.0[facility] FbwquegXBNXCZIJVF7420-06-92 00:05:0714.0[facility] GimpbvkYYHSTHGVBH5523-64-78 00:05:077.0[facility] OqzjdeeFMWJKCEBET8881-73-47 00:05:070.0[facility] [place] [facility] HEZAQULCVJ4316-68-92 00:05:071[facility] GsjkseoEEZFCRMSUF3433-40-52 00:05:071+ *ABN*(10/16/19 6:05 PM)[facility] MkuphusUQCYNIGCUY3731-29-99 00:05:071+ *ABN*(10/16/19 6:05 PM)[facility] UuzjwsmYEQMPDPMWM4723-99-77 00:05:07Moderate *ABN*(10/16/19 6:05 PM)[facility] HospitalWmqjjkbEUHFXLZYOX4897-98-13 00:05:0710.6[facility] NkzalaqOLGZCMYWMS5264-85-18 00:05:074.67[facility] FfamtrrMVSBWRGHIX8128-18-34 00:05:0711.5[facility] UjyghvuSWUIXETTOX4016-88-98 00:05:0736.7[facility] GLWPGPDOGA0796-89-61 00:05:0778.6[facility] XbsbiotYLJZGMUJEB3158-40-67 00:05:07* Test Item Value Reference Range Interpretation Comments MCH (test code = MCH) 24.5 pg 27.0-31.0 [facility] HospitalXtutunwHDBSYIMVMA8729-30-23 00:05:0731.2[facility] HermannHEMATOLOGY 2019-10-17 00:05:0718.7[facility] GooiaofWOIIICOYIU8086-85-22 00:05:45803Cqqhurfd IeutowvACFMECBCWQ9291-81-50 00:05:077.7[facility] YzikcgtFHCZHVLCMO6188-48-09 00:05:07* Test Item Value Reference Range Interpretation Comments PTT (test code = PTT) 26.9 s 22.9-35.8 [facility]BpzcywwSFYZGARCSR2068-04-03 00:05:07* Test Item Value Reference Range Interpretation Comments PT (test code = PT) 15.1 s 12.0-14.7 [facility] HospitalPxqwohzSHBNOSJPPJ7894-52-47 00:05:07* Test Item Value Reference Range Interpretation Comments INR (test code = INR) 1.18 1 0.85-1.17 [facility] SINGLE (PORTABLE)2019-10-16 13:29:00 [place] [address] Patient Name: STEVE BENEDICT MR #: [id number] : 1945 Age/Sex: 74/M Req #: [id number] Adm Physician: Ordered by: RENAE MENDOZA DO Report #: [id number] Location: ER Room/Bed: Procedure: [id number] DX/CHEST SINGLE (PORTABLE) Exam Date: 10/16/19 Exam [...] 1332 COPY TO: RENAE MENDOZA DO Sodium Jsitc5454-17-08 13:15:00* Test Item Value Reference Range Interpretation Comments Sodium Level (test code = 2951-2) 137 136-145 [facility] Ksbri8083-97-49 13:15:00* Test Item Value Reference Range Interpretation Comments Potassium Level (test code = 2823-3) 4.3 3.5-5.1 [facility]Chlor[facility] Ybkrg6733-41-97 13:15:00* Test Item Value Reference Range Interpretation Comments Chloride Level (test code = 2075-0) 89 98-107 L [facility] AustinCarbon Dioxide Pepic2594-36-72 13:15:00* Test Item Value Reference Range Interpretation Comments Carbon Dioxide Level (test code = 2028-9) 37 22-29 H [facility] AustinAnion Xzb6635-01-58 13:15:00* Test Item Value Reference Range Interpretation Comments Anion Gap (test code = 89373-6) 15.3 8-16 [facility] AustinBlood Urea Saijlypc5837-89-47 13:15:00* Test Item Value Reference Range Interpretation Comments Blood Urea Nitrogen (test code = 3094-0) 50 7-26 H [facility] AustinCreatinine2019-12-21 13:15:00* Test Item Value Reference Range Interpretation Comments Creatinine (test code = 2160-0) 1.74 0.72-1.25 H [facility] AustinBUN/Creatinine Znvhu3045-27-42 13:15:00* Test Item Value Reference Range Interpretation Comments BUN/Creatinine Ratio (test code = 3097-3) 29 6-25 H [facility] AustinEstimat Glomerular Filtration Rate 2019-10-16 13:15:00* Test Item Value Reference Range Interpretation Comments Estimat Glomerular Filtration Rate (test code = 885648427) 38 >60 L Ranges were taken from the National Kidney Disease Education Program and the [facility] literature.Reference ranges:60 or greater: Loevto49-74 ( for 3 consecutive months): Chronic kidney disease 15 or less: Kidney failureAsc[facility] AustinGlucose Sktpv7746-29-85 13:15:00* Test Item Value Reference Range Interpretation Comments Glucose Level (test code = QMS4874) 172 74-118 H [facility] AustinCalcium Qfzzh3745-40-02 13:15:00* Test Item Value Reference Range Interpretation Comments Calcium Level (test code = 78663-3) 9.4 8.4-10.2 [facility] AustinTotal Sfntsnnsu0311-70-02 13:15:00* Test Item Value Reference Range Interpretation Comments Total Bilirubin (test code = 1975-2) 0.4 0.2-1.2 [facility] AustinAspartate Amino Transf (AST/SGOT) 2019-10-16 13:15:00* Test Item Value Reference Range Interpretation Comments Aspartate Amino Transf (AST/SGOT) (test code = Aspartate Amino Transf (AST/SGOT)) 18 5-34 [facility] AustinAlanine Aminotransferase (ALT/SGPT) 2019-10-16 13:15:00* Test Item Value Reference Range Interpretation Comments Alanine Aminotransferase (ALT/SGPT) (test code = 1742-6) 29 0-55 [facility] AustinTotal Aqkxtxn7143-57-31 13:15:00* Test Item Value Reference Range Interpretation Comments Total Protein (test code = 2885-2) 5.9 6.5-8.1 L [facility] AustinAlbumin2019-12-21 13:15:00* Test Item Value Reference Range Interpretation Comments Albumin (test code = 1751-7) 3.8 3.5-5.0 [facility] AustinGlobulin2019-12-21 13:15:00* Test Item Value Reference Range Interpretation Comments Globulin (test code = 35806-8) 2.1 2.3-3.5 L [facility] AustinAlbumin/Globulin Wptvd6130-62-73 13:15:00 * Test Item Value Reference Range Interpretation Comments Albumin/Globulin Ratio (test code = 1759-0) 1.8 0.8-2.0 [facility] AustinAlkaline Qvluepqfmoc7205-75-93 13:15:00* Test Item Value Reference Range Interpretation Comments Alkaline Phosphatase (test code = 6768-6) 84 40-150 [facility]hamodium Vznaw4570-77-82 13:15:00* Test Item Value Reference Range Interpretation Comments Sodium Level (test code = 2951-2) 137 136-145 [facility] AustinPotassium Ezefi8048-36-78 13:15:00* Test Item Value Reference Range Interpretation Comments Potassium Level (test code = 2823-3) 4.3 3.5-5.1 [facility] AustinChloride Pysky4421-17-55 13:15:00* Test Item Value Reference Range Interpretation Comments Chloride Level (test code = 2075-0) 89 98-107 L [facility] AustinCarbon Dioxide Utzcf2388-40-49 13:15:00* Test Item Value Reference Range Interpretation Comments Carbon Dioxide Level (test code = 2028-9) 37 22-29 H [facility] AustinAnion Ctv1292-56-49 13:15:00* Test Item Value Reference Range Interpretation Comments Anion Gap (test code = 07591-7) 15.3 8-16 [facility] AustinBlood Urea Yvferamp0846-67-75 13:15:00* Test Item Value Reference Range Interpretation Comments Blood Urea Nitrogen (test code = 3094-0) 50 7-26 H [facility] AustinCreatinine2019-12-21 13:15:00* Test Item Value Reference Range Interpretation Comments Creatinine (test code = 2160-0) 1.74 0.72-1.25 H [facility] AustinBUN/Creatinine Mxaas2019-00-82 13:15:00* Test Item Value Reference Range Interpretation Comments BUN/Creatinine Ratio (test code = 3097-3) 29 6-25 H [facility] AustinEstimat Glomerular Filtration Rate 2019-10-16 13:15:00* Test Item Value Reference Range Interpretation Comments Estimat Glomerular Filtration Rate (test code = 298593983) 38 >60 L Ranges were taken from the National Kidney Disease Education Program and the [facility] literature.Reference ranges:60 or greater: Jyzhxo67-88 ( for 3 consecutive months): Chronic kidney disease 15 or less: Kidney failureAsc[facility] Center AustinGlucose Obheu2932-23-71 13:15:00* Test Item Value Reference Range Interpretation Comments Glucose Level (test code = NZQ9613) 172 74-118 H [facility] AustinCalcium Gzezy9498-72-33 13:15:00* Test Item Value Reference Range Interpretation Comments Calcium Level (test code = 93604-7) 9.4 8.4-10.2 [facility] AustinTotal Bjlxliuva5715-82-86 13:15:00* Test Item Value Reference Range Interpretation Comments Total Bilirubin (test code = 1975-2) 0.4 0.2-1.2 [facility] AustinAspartate Amino Transf (AST/SGOT) 2019-10-16 13:15:00* Test Item Value Reference Range Interpretation Comments Aspartate Amino Transf (AST/SGOT) (test code = Aspartate Amino Transf (AST/SGOT)) 18 5-34 [facility] AustinAlanine Aminotransferase (ALT/SGPT) 2019-10-16 13:15:00* Test Item Value Reference Range Interpretation Comments Alanine Aminotransferase (ALT/SGPT) (test code = 1742-6) 29 0-55 [facility] AustinTotal Kfdwzam9511-60-53 13:15:00* Test Item Value Reference Range Interpretation Comments Total Protein (test code = 2885-2) 5.9 6.5-8.1 L [facility] AustinAlbumin2019-12-21 13:15:00* Test Item Value Reference Range Interpretation Comments Albumin (test code = 1751-7) 3.8 3.5-5.0 [facility] AustinGlobulin2019-12-21 13:15:00* Test Item Value Reference Range Interpretation Comments Globulin (test code = 90315-2) 2.1 2.3-3.5 L [facility] AustinAlbumin/Globulin Uaokw3357-00-78 13:15:00 * Test Item Value Reference Range Interpretation Comments Albumin/Globulin Ratio (test code = 1759-0) 1.8 0.8-2.0 [facility] AustinAlkaline Ithfycwqttc4678-90-84 13:15:00* Test Item Value Reference Range Interpretation Comments Alkaline Phosphatase (test code = 6768-6) 84 40-150 [facility] AustinArterial Blood kO3769-88-33 13:05:00* Test Item Value Reference Range Interpretation Comments Arterial Blood pH (test code = 2744-1) 7.49 7.31-7.41 H [facility] AustinArterial Blood Partial Pressure CO2 2019-10-16 13:05:00* Test Item Value Reference Range Interpretation Comments Arterial Blood Partial Pressure CO2 (test code = 2019-8) 51 41-51 [facility] AustinArterial Blood Partial Pressure O2 2019-10-16 13:05:00* Test Item Value Reference Range Interpretation Comments Arterial Blood Partial Pressure O2 (test code = 2018-8) 97 80-105 [facility] AustinArterial Blood MSK13562-69-15 13:05:00* Test Item Value Reference Range Interpretation Comments Arterial Blood HCO3 (test code = 1960-4) 39 23-28 H [facility] AustinArterial Blood Base Gydnnf8966-75-54 13:05:00* Test Item Value Reference Range Interpretation Comments Arterial Blood Base Excess (test code = 1925-7) 15.0 -2-3 H [facility] AustinArterial Blood Oxygen Saturation 2019-10-16 13:05:00* Test Item Value Reference Range Interpretation Comments Arterial Blood Oxygen Saturation (test code = 2708-6) 98.0 95-98 [facility] AustinFiO22019-12-21 13:05:00* Test Item Value Reference Range Interpretation Comments FiO2 (test code = FiO2) 24 NASAL CANNULA 2L [facility] eK8114-24-02 13:05:00* Test Item Value Reference Range Interpretation Comments Arterial Blood pH (test code = 2744-1) 7.49 7.31-7.41 H [facility] AustinArterial Blood Partial Pressure CO2 2019-10-16 13:05:00* Test Item Value Reference Range Interpretation Comments Arterial Blood Partial Pressure CO2 (test code = 2018-8) 51 41-51 [facility] AustinArterial Blood Partial Pressure O2 2019-10-16 13:05:00* Test Item Value Reference Range Interpretation Comments Arterial Blood Partial Pressure O2 (test code = 2018-8) 97 80-105 [facility] AustinArterial Blood EMP14894-85-56 13:05:00* Test Item Value Reference Range Interpretation Comments Arterial Blood HCO3 (test code = 1960-4) 39 23-28 H [facility] AustinArterial Blood Base Iusvsv0054-92-24 13:05:00* Test Item Value Reference Range Interpretation Comments Arterial Blood Base Excess (test code = 1925-7) 15.0 -2-3 H [facility] AustinArterial Blood Oxygen Saturation 2019-10-16 13:05:00* Test Item Value Reference Range Interpretation Comments Arterial Blood Oxygen Saturation (test code = 2708-6) 98.0 95-98 [facility] AustinFiO22019-12-21 13:05:00* Test Item Value Reference Range Interpretation Comments FiO2 (test code = FiO2) 24 NASAL CANNULA 2L [facility] White Blood Katvk0048-51-25 13:04:00* Test Item Value Reference Range Interpretation Comments White Blood Count (test code = 6690-2) 12.11 4.8-10.8 H [facility] AustinRed Blood Ajjlp3871-76-40 13:04:00* Test Item Value Reference Range Interpretation Comments Red Blood Count (test code = 789-8) 5.08 4.3-5.7 [facility] AustinHemoglobin2019-12-21 13:04:00* Test Item Value Reference Range Interpretation Comments Hemoglobin (test code = 02741-0) 12.1 14.0-18.0 L [facility] AustinHematocrit2019-12-21 13:04:00* Test Item Value Reference Range Interpretation Comments Hematocrit (test code = 4544-3) 42.4 38.2-49.6 [facility] AustinMean Corpuscular Jlwrrs0207-13-34 13:04:00* Test Item Value Reference Range Interpretation Comments Mean Corpuscular Volume (test code = 787-2) 83.5 81-99 [facility] AustinMean Corpuscular Ccgewkriso3447-26-25 13:04:00* Test Item Value Reference Range Interpretation Comments Mean Corpuscular Hemoglobin (test code = 785-6) 23.8 28-32 L [facility] AustinMean Corpuscular Hemoglobin Concent 2019-10-16 13:04:00* Test Item Value Reference Range Interpretation Comments Mean Corpuscular Hemoglobin Concent (test code = 786-4) 28.5 31-35 L [facility] AustinRed Cell Distribution Xlslb5917-87-79 13:04:00* Test Item Value Reference Range Interpretation Comments Red Cell Distribution Width (test code = 28654-3) 17.4 11.7 -14.4 H [facility] AustinPlatelet Gpiaa4769-75-46 13:04:00* Test Item Value Reference Range Interpretation Comments Platelet Count (test code = 777-3) 204 140-360 [facility] AustinNeutrophils (%) (Auto)2019-10-16 13:04:00 * Test Item Value Reference Range Interpretation Comments Neutrophils (%) (Auto) (test code = 89032-7) 88.9 38.7-80.0 H [facility] AustinLymphocytes (%) (Auto)2019-10-16 13:04:00 * Test Item Value Reference Range Interpretation Comments Lymphocytes (%) (Auto) (test code = 736-9) 4.5 18.0-39.1 L [facility] AustinMonocytes (%) (Auto)2019-10-16 13:04:00* Test Item Value Reference Range Interpretation Comments Monocytes (%) (Auto) (test code = 5905-5) 4.4 4.4-11.3 [facility] AustinEosinophils (%) (Auto)2019-10-16 13:04:00 * Test Item Value Reference Range Interpretation Comments Eosinophils (%) (Auto) (test code = 713-8) 0.0 0.0-6.0 [facility] AustinBasophils (%) (Auto)2019-10-16 13:04:00* Test Item Value Reference Range Interpretation Comments Basophils (%) (Auto) (test code = 706-2) 0.1 0.0-1.0 [facility] AustinIM GRANULOCYTES %2019-10-16 13:04:00* Test Item Value Reference Range Interpretation Comments IM GRANULOCYTES % (test code = IM GRANULOCYTES %) 2.1 0.0- 1.0 H [facility] AustinNeutrophils # (Auto)2019-10-16 13:04:00* Test Item Value Reference Range Interpretation Comments Neutrophils # (Auto) (test code = 751-8) 10.8 2.1-6.9 H [facility] AustinLymphocytes # (Auto)2019-10-16 13:04:00* Test Item Value Reference Range Interpretation Comments Lymphocytes # (Auto) (test code = 06770-3) 0.6 1.0-3.2 L [facility] AustinMonocytes # (Auto)2019-10-16 13:04:00* Test Item Value Reference Range Interpretation Comments Monocytes # (Auto) (test code = 742-7) 0.5 0.2-0.8 [facility] AustinEosinophils # (Auto)2019-10-16 13:04:00* Test Item Value Reference Range Interpretation Comments Eosinophils # (Auto) (test code = 711-2) 0.0 0.0-0.4 [facility] AustinBasophils # (Auto)2019-10-16 13:04:00* Test Item Value Reference Range Interpretation Comments Basophils # (Auto) (test code = 704-7) 0.0 0.0-0.1 [facility] AustinAbsolute Immature Granulocyte (auto 2019-10-16 13:04:00* Test Item Value Reference Range Interpretation Comments Absolute Immature Granulocyte (auto (bharat t code = Absolute Immature Granulocyte (auto) 0.26 0-0.1 H [facility] AustinWhite Blood Tjwne9254-41-90 13:04:00* Test Item Value Reference Range Interpretation Comments White Blood Count (test code = 6690-2) 12.11 4.8-10.8 H [facility] AustinRed Blood Odifw5741-04-58 13:04:00* Test Item Value Reference Range Interpretation Comments Red Blood Count (test code = 789-8) 5.08 4.3-5.7 [facility] AustinHemoglobin2019-12-21 13:04:00* Test Item Value Reference Range Interpretation Comments Hemoglobin (test code = 46958-4) 12.1 14.0-18.0 L [facility] AustinHematocrit2019-12-21 13:04:00* Test Item Value Reference Range Interpretation Comments Hematocrit (test code = 4544-3) 42.4 38.2-49.6 [facility] AustinMean Corpuscular Wwcoea1071-51-52 13:04:00* Test Item Value Reference Range Interpretation Comments Mean Corpuscular Volume (test code = 787-2) 83.5 81-99 [facility] AustinMean Corpuscular Qdbcisrauz7797-19-06 13:04:00* Test Item Value Reference Range Interpretation Comments Mean Corpuscular Hemoglobin (test code = 785-6) 23.8 28-32 L [facility] AustinMean Corpuscular Hemoglobin Concent 2019-10-16 13:04:00* Test Item Value Reference Range Interpretation Comments Mean Corpuscular Hemoglobin Concent (test code = 786-4) 28.5 31-35 L [facility] AustinRed Cell Distribution Ntmsi8747-99-30 13:04:00* Test Item Value Reference Range Interpretation Comments Red Cell Distribution Width (test code = 74214-9) 17.4 11.7 -14.4 H [facility] AustinPlatelet Didmv4319-77-16 13:04:00* Test Item Value Reference Range Interpretation Comments Platelet Count (test code = 777-3) 204 140-360 [facility] AustinNeutrophils (%) (Auto)2019-10-16 13:04:00 * Test Item Value Reference Range Interpretation Comments Neutrophils (%) (Auto) (test code = 84876-6) 88.9 38.7-80.0 H [facility] AustinLymphocytes (%) (Auto)2019-10-16 13:04:00 * Test Item Value Reference Range Interpretation Comments Lymphocytes (%) (Auto) (test code = 736-9) 4.5 18.0-39.1 L [facility] AustinMonocytes (%) (Auto)2019-10-16 13:04:00* Test Item Value Reference Range Interpretation Comments Monocytes (%) (Auto) (test code = 5905-5) 4.4 4.4-11.3 [facility] AustinEosinophils (%) (Auto)2019-10-16 13:04:00 * Test Item Value Reference Range Interpretation Comments Eosinophils (%) (Auto) (test code = 713-8) 0.0 0.0-6.0 [facility] AustinBasophils (%) (Auto)2019-10-16 13:04:00* Test Item Value Reference Range Interpretation Comments Basophils (%) (Auto) (test code = 706-2) 0.1 0.0-1.0 [facility] AustinIM GRANULOCYTES %2019-10-16 13:04:00* Test Item Value Reference Range Interpretation Comments IM GRANULOCYTES % (test code = IM GRANULOCYTES %) 2.1 0.0- 1.0 H [facility] AustinNeutrophils # (Auto)2019-10-16 13:04:00* Test Item Value Reference Range Interpretation Comments Neutrophils # (Auto) (test code = 751-8) 10.8 2.1-6.9 H [facility] AustinLymphocytes # (Auto)2019-10-16 13:04:00* Test Item Value Reference Range Interpretation Comments Lymphocytes # (Auto) (test code = 46915-9) 0.6 1.0-3.2 L [facility] AustinMonocytes # (Auto)2019-10-16 13:04:00* Test Item Value Reference Range Interpretation Comments Monocytes # (Auto) (test code = 742-7) 0.5 0.2-0.8 [facility] AustinEosinophils # (Auto)2019-10-16 13:04:00* Test Item Value Reference Range Interpretation Comments Eosinophils # (Auto) (test code = 711-2) 0.0 0.0-0.4 [facility] AustinBasophils # (Auto)2019-10-16 13:04:00* Test Item Value Reference Range Interpretation Comments Basophils # (Auto) (test code = 704-7) 0.0 0.0-0.1 [facility] AustinAbsolute Immature Granulocyte (auto 2019-10-16 13:04:00* Test Item Value Reference Range Interpretation Comments Absolute Immature Granulocyte (auto (bharat t code = Absolute Immature Granulocyte (auto) 0.26 0-0.1 H [facility] Xfxrhxk7550-16-84 14:26:00* Test Item Value Reference Range Interpretation Comments Bedside Glucose (test code = 58217-3) 165 70-120 H Meter ID: [id number] [facility] Glucose 2019-08-12 14:26:00* Test Item Value Reference Range Interpretation Comments Bedside Glucose (test code = 90843-6) 165 70-120 H Meter ID: [id number] [facility] Glucose 2019-08-12 14:26:00* Test Item Value Reference Range Interpretation Comments Bedside Glucose (test code = 90360-2) 165 70-120 H Meter ID: [id number] Scott and White [facility] Dentongnesium Level 2019-08-12 06:27:00* Test Item Value Reference Range Interpretation Comments Magnesium Level (test code = 99032-3) 2.0 1.3-2.1 [facility] Xlqxu9768-88-99 06:27:00* Test Item Value Reference Range Interpretation Comments Magnesium Level (test code = 31206-8) 2.0 1.3-2.1 [facility] Dentongnesium Nsfuj0615-88-75 06:27:00* Test Item Value Reference Range Interpretation Comments Magnesium Level (test code = 75689-5) 2.0 1.3-2.1 [facility] Brenhamodium Zppip0526-31-58 05:33:00* Test Item Value Reference Range Interpretation Comments Sodium Level (test code = 2951-2) 142 136-145 [facility] AustinPotassium Uppez5252-51-80 05:33:00* Test Item Value Reference Range Interpretation Comments Potassium Level (test code = 2823-3) 4.0 3.5-5.1 [facility] AustinChloride Cfxem9652-56-46 05:33:00* Test Item Value Reference Range Interpretation Comments Chloride Level (test code = 2075-0) 97 98-107 L [facility] AustinCarbon Dioxide Svmju6919-14-78 05:33:00* Test Item Value Reference Range Interpretation Comments Carbon Dioxide Level (test code = 2028-9) 39 22-29 H [facility] AustinAnion Edz2119-07-79 05:33:00* Test Item Value Reference Range Interpretation Comments Anion Gap (test code = 56511-4) 10.0 8-16 [facility] AustinBlood Urea Ouojouop7862-85-05 05:33:00* Test Item Value Reference Range Interpretation Comments Blood Urea Nitrogen (test code = 3094-0) 25 7-26 [facility] AustinCreatinine2019-10-17 05:33:00* Test Item Value Reference Range Interpretation Comments Creatinine (test code = 2160-0) 1.22 0.72-1.25 [facility] AustinBUN/Creatinine Aiyip2656-12-11 05:33:00* Test Item Value Reference Range Interpretation Comments BUN/Creatinine Ratio (test code = 3097-3) 20 6-25 [facility] AustinEstimat Glomerular Filtration Rate 2019-08-12 05:33:00* Test Item Value Reference Range Interpretation Comments Estimat Glomerular Filtration Rate (test code = 191306957) 58 >60 L Ranges were taken from the National Kidney Disease Education Program and the [facility] literature.Reference ranges:60 or greater: Tpazhk84-40 ( for 3 consecutive months): Chronic kidney disease 15 or less: Kidney failureAsc[facility] Center AustinGlucose Zzerl4121-25-05 05:33:00* Test Item Value Reference Range Interpretation Comments Glucose Level (test code = VSP1111) 113 74-118 [facility] AustinCalcium Skzsx6250-67-96 05:33:00* Test Item Value Reference Range Interpretation Comments Calcium Level (test code = 05363-1) 9.0 8.4-10.2 [facility] AustinBlood Suesjkb5381-76-63 20:49:00* Test Item Value Reference Range Interpretation Comments Blood Culture (test code = 03359473) NO GROWTH AFTER 5 DAYS, FINAL REPORT [facility] AustinBlood Bpmvzwl0857-19-20 20:49:00* Test Item Value Reference Range Interpretation Comments Blood Culture (test code = 33552889) NO GROWTH AFTER 5 DAYS, FINAL REPORT [facility] AustinBlood Gjjadds4186-24-36 20:49:00* Test Item Value Reference Range Interpretation Comments Blood Culture (test code = 89097732) NO GROWTH AFTER 5 DAYS, FINAL REPORT [facility] AustinELBOW RIGHT MHFENPUN5723-91-33 07:24:00 [place] [address] Patient Name: STEVE BENEDICT MR #: [id number] : 1945 Age/Sex: 73/M Req #: [id number] Adm Physician: PERRY PERALES MD Ordered by: PERRY PERALES MD Report #: [id number] Location: [facility] Room/Bed: [place] [address] Procedure: [id number] DX /ELBOW RIGHT COMPLETE Exam Date: 08/10/19 [...] COPY TO: PERRY PERALES MD CT BRAIN WM1156-61-13 06:19:00 [place] [address] Patient Name: STEVE BENEDICT MR #: [id number] : 1945 Age/Sex: 73/M Req #: [id number] [facility] Physician: PERRY PERALES MD Ordered by: PERRY PERALES MD Report #: [id number] Location: [facility] Room/Bed: [place] [address] Procedure: [id number] CT /CT BRAIN WO Exam Date: 08/10/19 [...] COPY TO: PERRY KAUFMAN MD White Blood Kelpb2590-56-91 05:17:00* Test Item Value Reference Range Interpretation Comments White Blood Count (test code = 6690-2) 7.17 4.8-10.8 [facility] AustinRed Blood Agvwk8327-14-92 05:17:00* Test Item Value Reference Range Interpretation Comments Red Blood Count (test code = 789-8) 4.07 4.3-5.7 L [facility] AustinHemoglobin2019-10-13 05:17:00* Test Item Value Reference Range Interpretation Comments Hemoglobin (test code = 45765-1) 9.5 14.0-18.0 L [facility] AustinHematocrit2019-10-13 05:17:00* Test Item Value Reference Range Interpretation Comments Hematocrit (test code = 4544-3) 33.6 38.2-49.6 L [facility] AustinMean Corpuscular Bkmbnr7288-41-06 05:17:00* Test Item Value Reference Range Interpretation Comments Mean Corpuscular Volume (test code = 787-2) 82.6 81-99 [facility] AustinMean Corpuscular Fahezjcvgw7066-54-85 05:17:00* Test Item Value Reference Range Interpretation Comments Mean Corpuscular Hemoglobin (test code = 785-6) 23.3 28-32 L [facility] Corpuscular Hemoglobin Concent 2019-08-08 05:17:00* Test Item Value Reference Range Interpretation Comments Mean Corpuscular Hemoglobin Concent (test code = 786-4) 28.3 31-35 L [facility] AustinRed Cell Distribution Brnzv2986-91-92 05:17:00* Test Item Value Reference Range Interpretation Comments Red Cell Distribution Width (test code = 38333-1) 17.3 11.7 -14.4 H [facility] AustinPlatelet Orfjm2411-90-56 05:17:00* Test Item Value Reference Range Interpretation Comments Platelet Count (test code = 777-3) 202 140-360 [facility] AustinNeutrophils (%) (Auto)2019-08-08 05:17:00 * Test Item Value Reference Range Interpretation Comments Neutrophils (%) (Auto) (test code = 10907-9) 90.9 38.7-80.0 H [facility] AustinLymphocytes (%) (Auto)2019-08-08 05:17:00 * Test Item Value Reference Range Interpretation Comments Lymphocytes (%) (Auto) (test code = 736-9) 5.6 18.0-39.1 L [facility] AustinMonocytes (%) (Auto)2019-08-08 05:17:00* Test Item Value Reference Range Interpretation Comments Monocytes (%) (Auto) (test code = 5905-5) 2.6 4.4-11.3 L [facility] AustinEosinophils (%) (Auto)2019-08-08 05:17:00 * Test Item Value Reference Range Interpretation Comments Eosinophils (%) (Auto) (test code = 713-8) 0.0 0.0-6.0 [facility] AustinBasophils (%) (Auto)2019-08-08 05:17:00* Test Item Value Reference Range Interpretation Comments Basophils (%) (Auto) (test code = 706-2) 0.1 0.0-1.0 [facility] AustinIM GRANULOCYTES %2019-08-08 05:17:00* Test Item Value Reference Range Interpretation Comments IM GRANULOCYTES % (test code = IM GRANULOCYTES %) 0.8 0.0- 1.0 [facility] AustinNeutrophils # (Auto)2019-08-08 05:17:00* Test Item Value Reference Range Interpretation Comments Neutrophils # (Auto) (test code = 751-8) 6.5 2.1-6.9 [facility] AustinLymphocytes # (Auto)2019-08-08 05:17:00* Test Item Value Reference Range Interpretation Comments Lymphocytes # (Auto) (test code = 63297-0) 0.4 1.0-3.2 L [facility] AustinMonocytes # (Auto)2019-08-08 05:17:00* Test Item Value Reference Range Interpretation Comments Monocytes # (Auto) (test code = 742-7) 0.2 0.2-0.8 [facility] AustinEosinophils # (Auto)2019-08-08 05:17:00* Test Item Value Reference Range Interpretation Comments Eosinophils # (Auto) (test code = 711-2) 0.0 0.0-0.4 [facility] AustinBasophils # (Auto)2019-08-08 05:17:00* Test Item Value Reference Range Interpretation Comments Basophils # (Auto) (test code = 704-7) 0.0 0.0-0.1 [facility] AustinAbsolute Immature Granulocyte (auto 2019-08-08 05:17:00* Test Item Value Reference Range Interpretation Comments Absolute Immature Granulocyte (auto (bharat t code = Absolute Immature Granulocyte (auto) 0.06 0-0.1 [facility] AustinCreatine Kinase [id number] 15:54:00* Test Item Value Reference Range Interpretation Comments Creatine Kinase MB (test code = 20527-1) 2.60 0-5.0 [facility] AustinTroponin [id number] 15:54:00* Test Item Value Reference Range Interpretation Comments Troponin I (test code = ZQE9273) 0.037 0-0.300 [facility] AustinCreatine Kinase BC4856-08-97 15:54:00* Test Item Value Reference Range Interpretation Comments Creatine Kinase MB (test code = 44365-7) 2.60 0-5.0 [facility] AustinTroponin [id number] 15:54:00* Test Item Value Reference Range Interpretation Comments Troponin I (test code = QRP2167) 0.037 0-0.300 [facility] AustinCreatine Kinase [id number] 15:54:00* Test Item Value Reference Range Interpretation Comments Creatine Kinase MB (test code = 88137-1) 2.60 0-5.0 [facility] AustinTroponin [id number] 15:54:00* Test Item Value Reference Range Interpretation Comments Troponin I (test code = AUS5355) 0.037 0-0.300 [facility] AustinCreatine Ldyqbr4960-63-27 15:46:00* Test Item Value Reference Range Interpretation Comments Creatine Kinase (test code = 2157-6) 20 30-200 L [facility] AustinCreatine Lzffpe7814-50-76 15:46:00* Test Item Value Reference Range Interpretation Comments Creatine Kinase (test code = 2157-6) 20 30-200 L [facility] AustinCreatine Igmwmh8379-24-69 15:46:00* Test Item Value Reference Range Interpretation Comments Creatine Kinase (test code = 2157-6) 20 30-200 L [facility] AustinTotal Yrxiticqf8995-41-17 08:24:00* Test Item Value Reference Range Interpretation Comments Total Bilirubin (test code = 1975-2) 0.2 0.2-1.2 [facility] AustinAspartate Amino Transf (AST/SGOT) 2019-08-06 08:24:00* Test Item Value Reference Range Interpretation Comments Aspartate Amino Transf (AST/SGOT) (test code = Aspartate Amino Transf (AST/SGOT)) 22 5-34 [facility] AustinAlanine Aminotransferase (ALT/SGPT) 2019-08-06 08:24:00* Test Item Value Reference Range Interpretation Comments Alanine Aminotransferase (ALT/SGPT) (test code = 1742-6) 30 0-55 [facility] AustinTotal Tveggpc6660-38-29 08:24:00* Test Item Value Reference Range Interpretation Comments Total Protein (test code = 2885-2) 5.7 6.5-8.1 L [facility] AustinAlbumin2019-10-11 08:24:00* Test Item Value Reference Range Interpretation Comments Albumin (test code = 1751-7) 2.7 3.5-5.0 L [facility] AustinGlobulin2019-10-11 08:24:00* Test Item Value Reference Range Interpretation Comments Globulin (test code = 07469-3) 3.0 2.3-3.5 [facility] AustinAlbumin/Globulin Yixlu1829-85-78 08:24:00 * Test Item Value Reference Range Interpretation Comments Albumin/Globulin Ratio (test code = 1759-0) 0.9 0.8-2.0 [facility] AustinAlkaline Aczytbvjpmi6608-29-50 08:24:00* Test Item Value Reference Range Interpretation Comments Alkaline Phosphatase (test code = 6768-6) 82 40-150 [facility] AustinCHEST SINGLE (PORTABLE)2019-08-06 06:57:00 [place] [address] Patient Name: STEVE BENEDICT MR #: [id number] : 1945 Age/Sex: 73/M Req #: [id number] Adm Physician: ROSALIE SHORT MD Ordered by: IBAN RAMOS MD Report #: [id number] Location: [facility] Room/Bed: [place] [address] Procedure: [id number] DX /CHEST SINGLE (PORTABLE) Exam Date: Exam [...] IBAN RAMOS MD Influenza Virus Types A,B Pprklwx2615-55-94 00:02:00* Test Item Value Reference Range Interpretation Comments Influenza Virus Types A,B Antigen (test code = 49732-5) POSITIVE FLU A NEGATIVE H Results called to at 0001 on 08/06/19 [facility] [place].Results called to infection control at 0001 on 08/06/19 [facility] AustinInfluenza Virus Types A,B Bfijpys4152-97-86 00:02:00* Test Item Value Reference Range Interpretation Comments Influenza Virus Types A,B Antigen (test code = 08158-6) POSITIVE FLU A NEGATIVE H Results called to at 0001 on 08/06/19 by Phylicia Sumair. [place].Results called to infection control at 0001 on 08/06/19 by Phylicia Sumair.[facility] AustinInfluenza Virus Types A,B Gxecdqn7118-80-70 00:02:00* Test Item Value Reference Range Interpretation Comments Influenza Virus Types A,B Antigen (test code = 95028-4) POSITIVE FLU A NEGATIVE H Results called to at 0001 on 08/06/19 [facility]. [place].Results called to infection control at 0001 on 08/06/19 by [facility] AustinArterial Blood [id number] 23:59:00* Test Item Value Reference Range Interpretation Comments Arterial Blood pH (test code = 2744-1) 7.39 7.31-7.41 [facility] AustinArterial Blood Partial Pressure CO2 2019-08-05 23:59:00* Test Item Value Reference Range Interpretation Comments Arterial Blood Partial Pressure CO2 (test code = 2019-05) 58 41-51 H [facility] AustinArterial Blood Partial Pressure O2 2019-08-05 23:59:00* Test Item Value Reference Range Interpretation Comments Arterial Blood Partial Pressure O2 (test code = 2019-05) 98 80-105 [facility] AustinArterial Blood [id number] 23:59:00* Test Item Value Reference Range Interpretation Comments Arterial Blood HCO3 (test code = 1960-4) 35 23-28 H [facility] AustinArterial Blood Base Ejavtx4405-44-44 23:59:00* Test Item Value Reference Range Interpretation Comments Arterial Blood Base Excess (test code = 1925-7) 10.0 -2-3 H [facility] AustinArterial Blood Oxygen Saturation 2019-08-05 23:59:00* Test Item Value Reference Range Interpretation Comments Arterial Blood Oxygen Saturation (test code = 2708-6) 97.0 95-98 [facility] AustinFiO22019-10-10 23:59:00* Test Item Value Reference Range Interpretation Comments FiO2 (test code = FiO2) 36 Pt on 4L NC.[facility] AustinCT CHEST AO0014-26-97 22:47:00 [place] [address] Patient Name: STEVE BENEDICT MR #: [id number] : 1945 Age/Sex: 73/M Req #: [id number] Adm Physician: Ordered by: IBAN RAMOS MD Report #: [id number] Location: ER Room/Bed: Procedure: [id number] CT/ CT CHEST WO Exam Date: 08/05/19 [...] IBAN RAMOS MD CHEST SINGLE (PORTABLE)2019-08-05 22:19:00 [place] [address] Patient Name: STEVE BENEDICT MR #: [id number] : 1945 Age/Sex: 73/M Req #: [id number] Adm Physician: Ordered by: IBAN RAMOS MD Report #: [id number] Location: ER Room/Bed: Procedure: [id number] DX/ CHEST SINGLE (PORTABLE) Exam Date: 08/05/19 [...] 08/05/192221 COPY TO: IBAN RAMOS MD Urine [id number] 21:44:00* Test Item Value Reference Range Interpretation Comments Urine WBC (test code = 5821-4) 0-5 0-5 [facility] AustinUrine [id number] 21:44:00* Test Item Value Reference Range Interpretation Comments Urine RBC (test code = 16677-8) NONE 0-5 [facility] AustinUrine Wukghdlt1504-21-98 21:44:00* Test Item Value Reference Range Interpretation Comments Urine Bacteria (test code = 62661-7) NONE NONE [facility] AustinUrine Epithelial Ukpqe9665-38-25 21:44:00 * Test Item Value Reference Range Interpretation Comments Urine Epithelial Cells (test code = 13622-2) FEW NONE [facility] AustinUrine OPL4490-12-17 21:44:00* Test Item Value Reference Range Interpretation Comments Urine WBC (test code = 5821-4) 0-5 0-5 [facility] AustinUrine WGR4927-77-36 21:44:00* Test Item Value Reference Range Interpretation Comments Urine RBC (test code = 59876-6) NONE 0-5 [facility] AustinUrine Nunsinwc8966-32-29 21:44:00* Test Item Value Reference Range Interpretation Comments Urine Bacteria (test code = 48000-3) NONE NONE [facility] AustinUrine Epithelial Fmvij1269-99-93 21:44:00 * Test Item Value Reference Range Interpretation Comments Urine Epithelial Cells (test code = 95451-8) FEW NONE [facility] AustinUrine [id number] 21:44:00* Test Item Value Reference Range Interpretation Comments Urine WBC (test code = 5821-4) 0-5 0-5 [facility] AustinUrine YJD7534-59-00 21:44:00* Test Item Value Reference Range Interpretation Comments Urine RBC (test code = 94283-9) NONE 0-5 [facility] AustinUrine Gkgbuaqd0842-05-48 21:44:00* Test Item Value Reference Range Interpretation Comments Urine Bacteria (test code = 44181-1) NONE NONE [facility] AustinUrine Epithelial Arayt3032-88-01 21:44:00 * Test Item Value Reference Range Interpretation Comments Urine Epithelial Cells (test code = 69684-9) FEW NONE [facility] AustinUrine Orqys4783-70-66 21:38:00* Test Item Value Reference Range Interpretation Comments Urine Color (test code = 5778-6) YELLOW YELLOW [facility] AustinUrine Vsgfghn2393-78-71 21:38:00* Test Item Value Reference Range Interpretation Comments Urine Clarity (test code = 25268-5) SL CLOUDY CLEAR H [facility] AustinUrine Specific Vpcnelc3882-74-22 21:38:00 * Test Item Value Reference Range Interpretation Comments Urine Specific [place] (test code = 5811-5) 1.010 1.010-1.02 5 [facility] AustinUrine [id number] 21:38:00* Test Item Value Reference Range Interpretation Comments Urine pH (test code = 64315-3) 6 5-7 [facility] AustinUrine Leukocyte Hwuzghow0360-34-77 21:38:00* Test Item Value Reference Range Interpretation Comments Urine Leukocyte Esterase (test code = 5799-2) NEGATIVE NEGATIVE [facility] AustinUrine Ykgzpzw7134-59-96 21:38:00* Test Item Value Reference Range Interpretation Comments Urine Nitrite (test code = 80146-8) NEGATIVE NEGATIVE [facility] AustinUrine Dxsnijl5990-83-94 21:38:00* Test Item Value Reference Range Interpretation Comments Urine Protein (test code = 5804-0) NEGATIVE NEGATIVE [facility] AustinUrine Glucose (UA)2019-08-05 21:38:00* Test Item Value Reference Range Interpretation Comments Urine Glucose (UA) (test code = 2349-9) NEGATIVE NEGATIVE [facility] AustinUrine Kavfvkx2667-99-90 21:38:00* Test Item Value Reference Range Interpretation Comments Urine Ketones (test code = 63603-4) NEGATIVE NEGATIVE [facility] AustinUrine Pkqhqxogipum7860-94-06 21:38:00* Test Item Value Reference Range Interpretation Comments Urine Urobilinogen (test code = 49966-3) 0.2 0.2-1 [facility] AustinUrine Afhsnaada5368-53-73 21:38:00* Test Item Value Reference Range Interpretation Comments Urine Bilirubin (test code = 1978-6) NEGATIVE NEGATIVE [facility] AustinUrine Rjnlm3105-23-21 21:38:00* Test Item Value Reference Range Interpretation Comments Urine Blood (test code = 45613-8) NEGATIVE NEGATIVE [facility] AustinUrine Sbpid2180-51-73 21:38:00* Test Item Value Reference Range Interpretation Comments Urine Color (test code = 5778-6) YELLOW YELLOW [facility] AustinUrine Ahvfexd9735-40-40 21:38:00* Test Item Value Reference Range Interpretation Comments Urine Clarity (test code = 53961-5) SL CLOUDY CLEAR H [facility] AustinUrine Specific Piayhas4689-36-54 21:38:00 * Test Item Value Reference Range Interpretation Comments Urine Specific [place] (test code = 5811-5) 1.010 1.010-1.02 5 [facility] AustinUrine [id number] 21:38:00* Test Item Value Reference Range Interpretation Comments Urine pH (test code = 07856-7) 6 5-7 [facility] AustinUrine Leukocyte Fvyfrskg4656-71-35 21:38:00* Test Item Value Reference Range Interpretation Comments Urine Leukocyte Esterase (test code = 5799-2) NEGATIVE NEGATIVE [facility] AustinUrine Miymuqb2467-28-69 21:38:00* Test Item Value Reference Range Interpretation Comments Urine Nitrite (test code = 39719-3) NEGATIVE NEGATIVE [facility] AustinUrine Aymihfl0407-76-06 21:38:00* Test Item Value Reference Range Interpretation Comments Urine Protein (test code = 5804-0) NEGATIVE NEGATIVE [facility] AustinUrine Glucose (UA)2019-08-05 21:38:00* Test Item Value Reference Range Interpretation Comments Urine Glucose (UA) (test code = 2349-9) NEGATIVE NEGATIVE [facility] AustinUrine Ygyltun6722-49-80 21:38:00* Test Item Value Reference Range Interpretation Comments Urine Ketones (test code = 06082-1) NEGATIVE NEGATIVE [facility] AustinUrine Yawqkwflqajl3266-55-07 21:38:00* Test Item Value Reference Range Interpretation Comments Urine Urobilinogen (test code = 91750-6) 0.2 0.2-1 [facility] AustinUrine Zucjbwged8277-56-18 21:38:00* Test Item Value Reference Range Interpretation Comments Urine Bilirubin (test code = 1978-6) NEGATIVE NEGATIVE [facility] AustinUrine Kcncu1959-68-22 21:38:00* Test Item Value Reference Range Interpretation Comments Urine Blood (test code = 56532-4) NEGATIVE NEGATIVE [facility] AustinUrine Ylqyz7099-87-49 21:38:00* Test Item Value Reference Range Interpretation Comments Urine Color (test code = 5778-6) YELLOW YELLOW [facility] AustinUrine Qcslawn9919-78-73 21:38:00* Test Item Value Reference Range Interpretation Comments Urine Clarity (test code = 18994-9) SL CLOUDY CLEAR H [facility] AustinUrine Specific Odurhad9724-57-43 21:38:00 * Test Item Value Reference Range Interpretation Comments Urine Specific [place] (test code = 5811-5) 1.010 1.010-1.02 5 [facility] AustinUrine [id number] 21:38:00* Test Item Value Reference Range Interpretation Comments Urine pH (test code = 56369-0) 6 5-7 [facility] AustinUrine Leukocyte Gjplqqyl4707-29-29 21:38:00* Test Item Value Reference Range Interpretation Comments Urine Leukocyte Esterase (test code = 5799-2) NEGATIVE NEGATIVE [facility] AustinU[facility] Tpwjdov8978-74-02 21:38:00* Test Item Value Reference Range Interpretation Comments Urine Nitrite (test code = 12608-7) NEGATIVE NEGATIVE [facility] AustinUrine Barsqfk9138-19-40 21:38:00* Test Item Value Reference Range Interpretation Comments Urine Protein (test code = 5804-0) NEGATIVE NEGATIVE [facility] AustinUrine Glucose (UA)2019-08-05 21:38:00* Test Item Value Reference Range Interpretation Comments Urine Glucose (UA) (test code = 2349-9) NEGATIVE NEGATIVE [facility] AustinUrine Sbzdfjw0206-83-97 21:38:00* Test Item Value Reference Range Interpretation Comments Urine Ketones (test code = 15476-5) NEGATIVE NEGATIVE [facility] AustinUrine Jmzeoripwczr7592-24-67 21:38:00* Test Item Value Reference Range Interpretation Comments Urine Urobilinogen (test code = 69453-3) 0.2 0.2-1 [facility] AustinUrine Trofqvdsc7287-98-42 21:38:00* Test Item Value Reference Range Interpretation Comments Urine Bilirubin (test code = 1978-6) NEGATIVE NEGATIVE [facility] AustinUrine Lpzlu5131-99-14 21:38:00* Test Item Value Reference Range Interpretation Comments Urine Blood (test code = 13657-9) NEGATIVE NEGATIVE [facility] AustinB-Type Natriuretic Xufmskr9421-25-37 21:13:00* Test Item Value Reference Range Interpretation Comments B-Type Natriuretic Peptide (test code = 96017-4) 217.3 0-100 H [facility] AustinB-Type Natriuretic Xawmqaq6398-26-47 21:13:00* Test Item Value Reference Range Interpretation Comments B-Type Natriuretic Peptide (test code = 03306-0) 217.3 0-100 H [facility] AustinB-Type Natriuretic Pqwnrsx0194-00-42 21:13:00* Test Item Value Reference Range Interpretation Comments B-Type Natriuretic Peptide (test code = 41097-5) 217.3 0-100 H [facility] AustinLactic Acid Wyzod6720-94-74 20:57:00* Test Item Value Reference Range Interpretation Comments Lactic Acid Level (test code = Lactic Acid Level) 7.4 4.5- 19.8 [facility] AustinLactic Acid Edfsm0554-49-95 20:57:00* Test Item Value Reference Range Interpretation Comments Lactic Acid Level (test code = Lactic Acid Level) 7.4 4.5- 19.8 [facility] AustinLactic Acid Olnjd1815-34-08 20:57:00* Test Item Value Reference Range Interpretation Comments Lactic Acid Level (test code = Lactic Acid Level) 7.4 4.5- 19.8 [facility] AustinProthrombin Ncoj9489-08-47 20:56:00* Test Item Value Reference Range Interpretation Comments Prothrombin Time (test code = 5902-2) 19.3 11.9-14.5 H [facility] AustinProthromb Time International Ratio 2019-08-05 20:56:00* Test Item Value Reference Range Interpretation Comments Prothromb Time International Ratio (test code = 6301-6) 1.56 Oral Anticoagulant Therapy INR Values:1. Low Intensity Therapy 1.5 - 2.02 . Moderate Intensity Therapy 2.0 - 3.03. High Intensity Therapy(1) 2.5 - 3. 54. High Intensity Therapy(2) 3.0 - 4.05. Panic Value INR > 5.0 [facility] AustinActivated Partial Thromboplast Time 2019-08-05 20:56:00* Test Item Value Reference Range Interpretation Comments Activated Partial Thromboplast Time (test code = 81556-0) 46.8 23.8-35.5 H [facility] AustinProthrombin Oodu2652-51-45 20:56:00* Test Item Value Reference Range Interpretation Comments Prothrombin Time (test code = 5902-2) 19.3 11.9-14.5 H [facility] AustinProthromb Time International Ratio 2019-08-05 20:56:00* Test Item Value Reference Range Interpretation Comments Prothromb Time International Ratio (test code = 6301-6) 1.56 Oral Anticoagulant Therapy INR Values:1. Low Intensity Therapy 1.5 - 2.02 . Moderate Intensity Therapy 2.0 - 3.03. High Intensity Therapy(1) 2.5 - 3. 54. High Intensity Therapy(2) 3.0 - 4.05. Panic Value INR > 5.0 [facility] AustinActivated Partial Thromboplast Time 2019-08-05 20:56:00* Test Item Value Reference Range Interpretation Comments Activated Partial Thromboplast Time (test code = 82757-8) 46.8 23.8-35.5 H [facility] AustinProthrombin Iufj7095-59-44 20:56:00* Test Item Value Reference Range Interpretation Comments Prothrombin Time (test code = 5902-2) 19.3 11.9-14.5 H [facility] AustinProthromb Time International Ratio 2019-08-05 20:56:00* Test Item Value Reference Range Interpretation Comments Prothromb Time International Ratio (test code = 6301-6) 1.56 Oral Anticoagulant Therapy INR Values:1. Low Intensity Therapy 1.5 - 2.02 . Moderate Intensity Therapy 2.0 - 3.03. High Intensity Therapy(1) 2.5 - 3. 54. High Intensity Therapy(2) 3.0 - 4.05. Panic Value INR > 5.0 [facility] AustinActivated Partial Thromboplast Time 2019-08-05 20:56:00* Test Item Value Reference Range Interpretation Comments Activated Partial Thromboplast Time (test code = 41138-8) 46.8 23.8-35.5 H [facility] AustinRenin2019-08-24 06:18:00* Test Item Value Reference Range Interpretation Comments Renin (test code = 2915-7) 5.618 0.167-5.380 H This test was developed and its performance characteristicsdetermined by [employer] . It has not been cleared orapproved by the Food and Drug Administration.Perform ed at: [address] [id number] Dir chepe: Charanjit Godwin MD, Phone: [phone] Seton Medical Center AustinRenin2019-08-24 06:18:00* Test Item Value Reference Range Interpretation Comments Renin (test code = 2915-7) 5.618 0.167-5.380 H This test was developed and its performance characteristicsdetermined by [employer] . It has not been cleared orapproved by the Food and Drug Administration.Perform ed at: [address] [id number] Dir chepe: Charanjit Godwin MD, Phone: [phone] Seton [facility] Center AustinRenin2019-08-24 06:18:00* Test Item Value Reference Range Interpretation Comments Renin (test code = 2915-7) 5.618 0.167-5.380 H This test was developed and its performance characteristicsdetermined by [employer] . It has not been cleared orapproved by the Food and Drug Administration.Perform ed at: [address] [id number] Dir chepe: Charanjit Godwni MD, Phone: [phone] Hospital of Austin2019-08-21 22:03:00* Test Item Value Reference Range Interpretation Comments Aldosterone (test code = 1763-2) 2.5 0.0-30.0 This test was developed and its performance characteristicsdetermined by [employer] . It has not been cleared orapproved by the Food and Drug Administration.Perform ed at: [address] [id number] Dir chepe: Charanjit Godwin MD, Phone: [phone] Regional Medical Centerosterone2019-08-21 22:03:00* Test Item Value Reference Range Interpretation Comments Aldosterone (test code = 1763-2) 2.5 0.0-30.0 This test was developed and its performance characteristicsdetermined by [employer] . It has not been cleared orapproved by the Food and Drug Administration.Perform ed at: [address] [id number] [address] chepe: Charanjit Godwin MD, Phone: [phone] 22:03:00* Test Item Value Reference Range Interpretation Comments Aldosterone (test code = 1763-2) 2.5 0.0-30.0 This test was developed and its performance characteristicsdetermined by [employer] . It has not been cleared orapproved by the Food and Drug Administration.Perform ed at: [address] [id number] Dir chepe: Charanjit Godwin MD, Phone: [phone] [facility] HospitalDixin Bstzw2805-78-49 17:40:00* Test Item Value Reference Range Interpretation Comments Digoxin Level (test code = 52403-2) < 0.30 0.8-2.0 L [facility] AustinDixin Cwfll2037-87-90 17:40:00* Test Item Value Reference Range Interpretation Comments Digoxin Level (test code = 62135-7) < 0.30 0.8-2.0 L [facility]2019-08-21 17:40:00* Test Item Value Reference Range Interpretation Comments Digoxin Level (test code = 98917-6) < 0.30 0.8-2.0 L [facility] Dmeko1198-75-25 17:40:00* Test Item Value Reference Range Interpretation Comments Digoxin Level (test code = 90031-7) < 0.30 0.8-2.0 L [facility] AustinBedside Xtgohkc4882-48-04 16:28:00* Test Item Value Reference Range Interpretation Comments Bedside Glucose (test code = 76437-9) 119 70-120 Meter ID: [id number] [facility] HospitalMODIFIED [facility]. SWALLOW 2019-06-16 16:12:00 [place] [address] Patient Name: STEVE BENEDICT MR #: [id number] : 1945 Age/Sex: 73/M Req #: [id number] Adm Physician: ROSALIE SHORT MD Ordered by: Samara Das PAYROLL CLERK Report #: [id number] Location: MED/SURG3 Room/Bed: [facility] Procedure: [id number] D X/MODIFIED BA. SWALLOW Exam Date: 06/16/19 Exam Time : 1110 REPORT STATUS: Signed Modified barium swallow, 06/16/2019. History: Aspiration. Fluoro jose e e: 2.3 min. Dose: 17.3 mGy (KARIME) Technique: Fluoroscopy was performed by transport tech. A radiologist was not present for exam. [...] SAMARA DAS NP CHEST SINGLE (PORTABLE)2019-06-16 08:59:00 [place] [address] Patient Name: STEVE BENEDICT MR #: [id number] : 1945 Age/Sex: 73/M Req #: [id number] [facility] Physician: ROSALIE SHORT MD Ordered by: HARPAL RESENDEZ MD Report #: [id number] Location: [facility] Room/Bed: [facility] Procedure: [id number] DX/CHEST SINGLE (PORTABLE) Exam Date: 06/16/19 Exam [...] COPY TO: XIN RESENDEZ MD, ABI Sodium Cgzsl7579-65-07 06:10:00* Test Item Value Reference Range Interpretation Comments Sodium Level (test code = 2951-2) 140 136-145 [facility] AustinPotassium Vexzo3564-37-65 06:10:00* Test Item Value Reference Range Interpretation Comments Potassium Level (test code = 2823-3) 3.7 3.5-5.1 [facility] AustinChloride Gvqkc3481-47-25 06:10:00* Test Item Value Reference Range Interpretation Comments Chloride Level (test code = 2075-0) 97 98-107 L [facility] AustinCarbon Dioxide Tbjkc8167-86-89 06:10:00* Test Item Value Reference Range Interpretation Comments Carbon Dioxide Level (test code = 2028-9) 36 22-29 H [facility] AustinAnion Dgy9569-31-71 06:10:00* Test Item Value Reference Range Interpretation Comments Anion Gap (test code = 92721-9) 10.7 8-16 [facility] AustinBlood Urea Ktwmerey5969-53-34 06:10:00* Test Item Value Reference Range Interpretation Comments Blood Urea Nitrogen (test code = 3094-0) 32 7-26 H [facility] AustinCreatinine2019-08-21 06:10:00* Test Item Value Reference Range Interpretation Comments Creatinine (test code = 2160-0) 1.25 0.72-1.25 [facility] AustinBUN/Creatinine Gqhjj8939-40-62 06:10:00* Test Item Value Reference Range Interpretation Comments BUN/Creatinine Ratio (test code = 3097-3) 26 6-25 H [facility] AustinEstimat Glomerular Filtration Rate 2019-06-16 06:10:00* Test Item Value Reference Range Interpretation Comments Estimat Glomerular Filtration Rate (test code = 559504358) 56 >60 L Ranges were taken from the National Kidney Disease Education Program and the [facility] Kidney Foundation literature.Reference ranges:60 or greater: Rjpwbc62-76 ( for 3 consecutive months): Chronic kidney disease 15 or less: Kidney failureAscension Seton Medical Center AustinGlucose Faern4369-90-16 06:10:00* Test Item Value Reference Range Interpretation Comments Glucose Level (test code = JYY9729) 114 74-118 [facility] AustinCalcium Sktzr1395-29-33 06:10:00* Test Item Value Reference Range Interpretation Comments Calcium Level (test code = 70011-6) 9.5 8.4-10.2 [facility] AustinMagnesium Jzfdd7933-53-19 06:10:00* Test Item Value Reference Range Interpretation Comments Magnesium Level (test code = 22360-3) 1.9 1.3-2.1 [facility] AustinWhite Blood Rjhjx0929-27-33 05:44:00* Test Item Value Reference Range Interpretation Comments White Blood Count (test code = 6690-2) 4.82 4.8-10.8 [facility] AustinRed Blood Dzchr7525-43-17 05:44:00* Test Item Value Reference Range Interpretation Comments Red Blood Count (test code = 789-8) 3.55 4.3-5.7 L [facility] AustinHemoglobin2019-08-21 05:44:00* Test Item Value Reference Range Interpretation Comments Hemoglobin (test code = 56586-2) 9.1 14.0-18.0 L [facility] AustinHematocrit2019-08-21 05:44:00* Test Item Value Reference Range Interpretation Comments Hematocrit (test code = 4544-3) 31.3 38.2-49.6 L [facility] AustinMean Corpuscular Amqtvb6139-67-91 05:44:00* Test Item Value Reference Range Interpretation Comments Mean Corpuscular Volume (test code = 787-2) 88.2 81-99 [facility] AustinMean Corpuscular Gqeywxmxek0651-54-61 05:44:00* Test Item Value Reference Range Interpretation Comments Mean Corpuscular Hemoglobin (test code = 785-6) 25.6 28-32 L [facility] AustinMean Corpuscular Hemoglobin Concent 2019-06-16 05:44:00* Test Item Value Reference Range Interpretation Comments Mean Corpuscular Hemoglobin Concent (test code = 786-4) 29.1 31-35 L [facility] AustinRed Cell Distribution Dyybq8946-01-28 05:44:00* Test Item Value Reference Range Interpretation Comments Red Cell Distribution Width (test code = 12669-6) 14.7 11.7 -14.4 H [facility] AustinPlatelet Tdvmw2529-73-54 05:44:00* Test Item Value Reference Range Interpretation Comments Platelet Count (test code = 777-3) 252 140-360 [facility] AustinNeutrophils (%) (Auto)2019-06-16 05:44:00 * Test Item Value Reference Range Interpretation Comments Neutrophils (%) (Auto) (test code = 32685-9) 67.0 38.7-80.0 [facility] AustinLymphocytes (%) (Auto)2019-06-16 05:44:00 * Test Item Value Reference Range Interpretation Comments Lymphocytes (%) (Auto) (test code = 736-9) 16.0 18.0-39.1 L [facility] AustinMonocytes (%) (Auto)2019-06-16 05:44:00* Test Item Value Reference Range Interpretation Comments Monocytes (%) (Auto) (test code = 5905-5) 9.8 4.4-11.3 [facility] AustinEosinophils (%) (Auto)2019-06-16 05:44:00 * Test Item Value Reference Range Interpretation Comments Eosinophils (%) (Auto) (test code = 713-8) 6.4 0.0-6.0 H [facility] AustinBasophils (%) (Auto)2019-06-16 05:44:00* Test Item Value Reference Range Interpretation Comments Basophils (%) (Auto) (test code = 706-2) 0.6 0.0-1.0 [facility] AustinIM GRANULOCYTES %2019-06-16 05:44:00* Test Item Value Reference Range Interpretation Comments IM GRANULOCYTES % (test code = IM GRANULOCYTES %) 0.2 0.0- 1.0 [facility] AustinNeutrophils # (Auto)2019-06-16 05:44:00* Test Item Value Reference Range Interpretation Comments Neutrophils # (Auto) (test code = 751-8) 3.2 2.1-6.9 [facility] AustinLymphocytes # (Auto)2019-06-16 05:44:00* Test Item Value Reference Range Interpretation Comments Lymphocytes # (Auto) (test code = 95632-4) 0.8 1.0-3.2 L [facility] AustinMonocytes # (Auto)2019-06-16 05:44:00* Test Item Value Reference Range Interpretation Comments Monocytes # (Auto) (test code = 742-7) 0.5 0.2-0.8 [facility] AustinEosinophils # (Auto)2019-06-16 05:44:00* Test Item Value Reference Range Interpretation Comments Eosinophils # (Auto) (test code = 711-2) 0.3 0.0-0.4 [facility] AustinBasophils # (Auto)2019-06-16 05:44:00* Test Item Value Reference Range Interpretation Comments Basophils # (Auto) (test code = 704-7) 0.0 0.0-0.1 [facility] AustinAbsolute Immature Granulocyte (auto 2019-06-16 05:44:00* Test Item Value Reference Range Interpretation Comments Absolute Immature Granulocyte (auto (bharat t code = Absolute Immature Granulocyte (auto) 0.01 0-0.1 [facility] AustinB-Type Natriuretic Rugmoxe6164-64-51 03:31:00* Test Item Value Reference Range Interpretation Comments B-Type Natriuretic Peptide (test code = 99417-6) 630.7 0-100 H [facility] Lvcsnagn8965-40-07 11:53:00* Test Item Value Reference Range Interpretation Comments Total Cortisol (test code = 2143-6) 5.5 . Cortisol AM 6.2 - 19.4 Co rtisol PM 2.3 - 11.9Performed at: [address] [id number] Director: Tito Rodriguez MD, Phone: [phone] Scott & White [facility] [place] Pkmiyvgn4191-96-30 11:53:00* Test Item Value Reference Range Interpretation Comments Total Cortisol (test code = 2143-6) 5.5 . Cortisol AM 6.2 - 19.4 Co rtisol PM 2.3 - 11.9Performed at: [address] [id number] Director: Tito Rodriguez MD, Phone: [phone] Scott & White [facility] Yndewqdb4917-10-35 11:53:00* Test Item Value Reference Range Interpretation Comments Total Cortisol (test code = 2143-6) 5.5 . Cortisol AM 6.2 - 19.4 Co rtisol PM 2.3 - 11.9Performed at: [address] [id number] Director: Tito Rodriguez MD, Phone: [phone] Scott & [facility] Wwwmlvaz5423-35-58 11:53:00* Test Item Value Reference Range Interpretation Comments Total Cortisol (test code = 2143-6) 5.5 . Cortisol AM 6.2 - 19.4 Co rtisol PM 2.3 - 11.9Performed at: [address] [id number] Director: Tito Rodriguez MD, Phone: [phone] Seton Medical Center AustinPhosphorus Ssoyz2923-90-75 05:15:00* Test Item Value Reference Range Interpretation Comments Phosphorus Level (test code = POP1990) 2.7 2.3-4.7 [facility] AustinPhosphorus Jxlwv7876-72-47 05:15:00* Test Item Value Reference Range Interpretation Comments Phosphorus Level (test code = FKM0263) 2.7 2.3-4.7 [facility] AustinPhosphorus Nxmeg7798-82-46 05:15:00* Test Item Value Reference Range Interpretation Comments Phosphorus Level (test code = TDT0836) 2.7 2.3-4.7 [facility] AustinPhosphorus Vabyo3463-24-77 05:15:00* Test Item Value Reference Range Interpretation Comments Phosphorus Level (test code = MXO9620) 2.7 2.3-4.7 [facility] AustinBlood Ykpfrsd7518-79-28 19:12:00* Test Item Value Reference Range Interpretation Comments Blood Culture (test code = 45096917) NO GROWTH AFTER 72 HOURS [facility] AustinTotal Vdzghezxf6549-50-67 07:09:00* Test Item Value Reference Range Interpretation Comments Total Bilirubin (test code = 1975-2) 0.4 0.2-1.2 [facility] AustinAspartate Amino Transf (AST/SGOT) 2019-06-14 07:09:00* Test Item Value Reference Range Interpretation Comments Aspartate Amino Transf (AST/SGOT) (test code = Aspartate Amino Transf (AST/SGOT)) 16 5-34 [facility] AustinAlanine Aminotransferase (ALT/SGPT) 2019-06-14 07:09:00* Test Item Value Reference Range Interpretation Comments Alanine Aminotransferase (ALT/SGPT) (test code = 1742-6) 8 0-55 [facility] AustinTotal Kikreha3289-17-84 07:09:00* Test Item Value Reference Range Interpretation Comments Total Protein (test code = 2885-2) 5.4 6.5-8.1 L [facility] AustinAlbumin2019-08-19 07:09:00* Test Item Value Reference Range Interpretation Comments Albumin (test code = 1751-7) 2.8 3.5-5.0 L [facility] AustinGlobulin2019-08-19 07:09:00* Test Item Value Reference Range Interpretation Comments Globulin (test code = 63816-0) 2.6 2.3-3.5 [facility] AustinAlbumin/Globulin Pmbao6050-12-47 07:09:00 * Test Item Value Reference Range Interpretation Comments Albumin/Globulin Ratio (test code = 1759-0) 1.1 0.8-2.0 [facility] AustinAlkaline Ontnxawxjmh6647-64-72 07:09:00* Test Item Value Reference Range Interpretation Comments Alkaline Phosphatase (test code = 6768-6) 73 40-150 [facility] Mmkxcanbi3094-20-73 07:36:00* Test Item Value Reference Range Interpretation Comments Free Thyroxine (test code = 3024-7) 0.86 0.8-1.8 [facility] AustinThyroid Stimulating Hormone (TSH) 2019-06-13 07:36:00* Test Item Value Reference Range Interpretation Comments Thyroid Stimulating Hormone (TSH) (test code = 46901-8) 3.117 0.350-4.940 [facility] Yutljnjhc6987-92-92 07:36:00* Test Item Value Reference Range Interpretation Comments Free Thyroxine (test code = 3024-7) 0.86 0.8-1.8 [facility] AustinThyroid Stimulating Hormone (TSH) 2019-06-13 07:36:00* Test Item Value Reference Range Interpretation Comments Thyroid Stimulating Hormone (TSH) (test code = 44879-0) 3.117 0.350-4.940 [facility] Wgirxcupx1280-88-21 07:36:00* Test Item Value Reference Range Interpretation Comments Free Thyroxine (test code = 3024-7) 0.86 0.8-1.8 [facility] AustinThyroid Stimulating Hormone (TSH) 2019-06-13 07:36:00* Test Item Value Reference Range Interpretation Comments Thyroid Stimulating Hormone (TSH) (test code = 57124-4) 3.117 0.350-4.940 [facility] Qsjzdbpbe0466-12-11 07:36:00* Test Item Value Reference Range Interpretation Comments Free Thyroxine (test code = 3024-7) 0.86 0.8-1.8 [facility] AustinThyroid Stimulating Hormone (TSH) 2019-06-13 07:36:00* Test Item Value Reference Range Interpretation Comments Thyroid Stimulating Hormone (TSH) (test code = 67208-8) 3.117 0.350-4.940 [facility] AustinHemoglobin A1c Wzvdxts1287-82-19 07:18:00 * Test Item Value Reference Range Interpretation Comments Hemoglobin A1c Percent (test code = Hemoglobin A1c Percent) 5.7 4.0-7.0 [facility] AustinHemoglobin A1c Npikssz3992-84-09 07:18:00 * Test Item Value Reference Range Interpretation Comments Hemoglobin A1c Percent (test code = Hemoglobin A1c Percent) 5.7 4.0-7.0 [facility] AustinHemoglobin A1c Njycawn6891-23-44 07:18:00 * Test Item Value Reference Range Interpretation Comments Hemoglobin A1c Percent (test code = Hemoglobin A1c Percent) 5.7 4.0-7.0 [facility] AustinHemoglobin A1c Aqpyykp8662-57-94 07:18:00 * Test Item Value Reference Range Interpretation Comments Hemoglobin A1c Percent (test code = Hemoglobin A1c Percent) 5.7 4.0-7.0 [facility] AustinCreatine Eqcrjc6387-36-97 10:22:00* Test Item Value Reference Range Interpretation Comments Creatine Kinase (test code = 2157-6) 111 30-200 [facility] AustinCreatine Kinase WU0264-87-28 10:22:00* Test Item Value Reference Range Interpretation Comments Creatine Kinase MB (test code = 06344-7) 4.60 0-5.0 [facility] AustinTroponin S5973-93-62 10:22:00* Test Item Value Reference Range Interpretation Comments Troponin I (test code = OMC8617) 0.015 0-0.300 [facility] AustinCHEST SINGLE (PORTABLE)2019-06-12 06:18:00 [place] [address] Patient Name: STEVE BENEDICT MR #: [id number] : 1945 Age/Sex: 73/M Req #: [id number] Adm Physician: ROSALIE SHORT MD Ordered by: RENAE SOLARES MD Report #: [id number] Location: MED/SURG3 Room/Bed: [facility] Procedure: [id number] DX/CHEST SINGLE (PORTABLE) Exam Date: 06/12/19 Exam [...] 06/12/19620 COPY TO: RENAE SOLARES MD Urine MAK2095-21-75 19:19:00* Test Item Value Reference Range Interpretation Comments Urine WBC (test code = 5821-4) 0-5 0-5 [facility] AustinUrine QXX1136-29-11 19:19:00* Test Item Value Reference Range Interpretation Comments Urine RBC (test code = 51195-5) 0-5 0-5 [facility] AustinUrine Lnliepfs4859-05-81 19:19:00* Test Item Value Reference Range Interpretation Comments Urine Bacteria (test code = 10647-2) FEW NONE [facility] AustinUrine Epithelial Enkdj5885-45-53 19:19:00 * Test Item Value Reference Range Interpretation Comments Urine Epithelial Cells (test code = 64736-8) FEW NONE [facility] AustinUrine Ttrip7697-53-57 19:15:00* Test Item Value Reference Range Interpretation Comments Urine Color (test code = 5778-6) YELLOW YELLOW [facility] AustinUrine Hjeyift8246-23-02 19:15:00* Test Item Value Reference Range Interpretation Comments Urine Clarity (test code = 63731-0) SL CLOUDY CLEAR H [facility] AustinUrine Specific Lfewefk2591-22-27 19:15:00 * Test Item Value Reference Range Interpretation Comments Urine Specific [place] (test code = 5811-5) <=1.005 1.010-1.02 5 [facility] AustinUrine qB3499-04-61 19:15:00* Test Item Value Reference Range Interpretation Comments Urine pH (test code = 52856-4) 6 5-7 [facility] AustinUrine Leukocyte Erckwuia8500-07-41 19:15:00* Test Item Value Reference Range Interpretation Comments Urine Leukocyte Esterase (test code = 07781-8) NEGATIVE NEGATIV E [facility] AustinUrine Spjzkff9232-16-29 19:15:00* Test Item Value Reference Range Interpretation Comments Urine Nitrite (test code = 81073-7) NEGATIVE NEGATIVE [facility] AustinUrine Arsyjjz3998-67-62 19:15:00* Test Item Value Reference Range Interpretation Comments Urine Protein (test code = 13553-5) NEGATIVE NEGATIVE [facility] AustinUrine Glucose (UA)2019-06-11 19:15:00* Test Item Value Reference Range Interpretation Comments Urine Glucose (UA) (test code = 62168-1) NEGATIVE NEGATIVE [facility] AustinUrine Kdcfrnq9249-20-85 19:15:00* Test Item Value Reference Range Interpretation Comments Urine Ketones (test code = 13315-7) NEGATIVE NEGATIVE [facility] AustinUrine Rvauptcpwyws0103-58-42 19:15:00* Test Item Value Reference Range Interpretation Comments Urine Urobilinogen (test code = 30732-6) 0.2 0.2-1 [facility] AustinUrine Znezyhivo4563-55-79 19:15:00* Test Item Value Reference Range Interpretation Comments Urine Bilirubin (test code = 1977-8) NEGATIVE NEGATIVE [facility] AustinUrine Zmaea9279-81-53 19:15:00* Test Item Value Reference Range Interpretation Comments Urine Blood (test code = 02965-3) NEGATIVE NEGATIVE [facility] AustinActivated Partial Thromboplast Time 2019-06-11 16:11:00* Test Item Value Reference Range Interpretation Comments Activated Partial Thromboplast Time (test code = 82456-9) 49.1 23.8-35.5 H [facility] AustinProthrombin Dvad7289-98-58 16:10:00* Test Item Value Reference Range Interpretation Comments Prothrombin Time (test code = 5902-2) 19.1 11.9-14.5 H [facility] AustinProthromb Time International Ratio 2019-06-11 16:10:00* Test Item Value Reference Range Interpretation Comments Prothromb Time International Ratio (test code = 6301-6) 1.54 Oral Anticoagulant Therapy INR Values:1. Low Intensity Therapy 1.5 - 2.02 . Moderate Intensity Therapy 2.0 - 3.03. High Intensity Therapy(1) 2.5 - 3. 54. High Intensity Therapy(2) 3.0 - 4.05. Panic Value INR > 5.0 [facility] AustinCHEST SINGLE (PORTABLE)2019-06-11 15:51:00 [place] [address] Patient Name: STEVE BENEDICT MR #: [id number] : 1945 Age/Sex: 73/M Req #: [id number] Adm Physician: Ordered by: JAIR RESENDEZ PAYROLL CLERK Report #: [id number] Location: ER Room/Bed: Procedure: [id number] DX/CHEST SINGLE (PORTABLE) Exam Date: 06/11/19 Exam [...] 06/11/19 1552 CO PY TO: JAIR RESENDEZ PAYROLL CLERK Bedside Euvtmkk7242-36-22 12:32:00* Test Item Value Reference Range Interpretation Comments Bedside Glucose (test code = 83464-4) 89 70-120 Meter ID: [id number] [facility] Systemodium Level 2019-05-28 05:58:00* Test Item Value Reference Range Interpretation Comments Sodium Level (test code = 2951-2) 141 136-145 [facility] AustinPotassium Eptnn5043-28-91 05:58:00* Test Item Value Reference Range Interpretation Comments Potassium Level (test code = 2823-3) 3.8 3.5-5.1 [facility] AustinChloride Kaixq8859-17-60 05:58:00* Test Item Value Reference Range Interpretation Comments Chloride Level (test code = 2075-0) 88 98-107 L [facility] AustinCarbon Dioxide Iwlvs5958-78-30 05:58:00* Test Item Value Reference Range Interpretation Comments Carbon Dioxide Level (test code = 2028-9) 43 22-29 HH Results repeated and called to SAVANA KAPADIA RN at 0556 on 05/28/19 by Shruthi Rivera. Read back and verified.[facility] AustinAnion Nii1319-79-15 05:58:00* Test Item Value Reference Range Interpretation Comments Anion Gap (test code = 68217-6) 13.8 8-16 [facility] AustinBlood Urea Ohqisglc3356-99-87 05:58:00* Test Item Value Reference Range Interpretation Comments Blood Urea Nitrogen (test code = 3094-0) 43 7-26 H [facility] AustinCreatinine2019-08-02 05:58:00* Test Item Value Reference Range Interpretation Comments Creatinine (test code = 2160-0) 1.68 0.72-1.25 H [facility] AustinBUN/Creatinine Pmetz5019-20-24 05:58:00* Test Item Value Reference Range Interpretation Comments BUN/Creatinine Ratio (test code = 3097-3) 26 6-25 H [facility] AustinEstimat Glomerular Filtration Rate 2019-05-28 05:58:00* Test Item Value Reference Range Interpretation Comments Estimat Glomerular Filtration Rate (test code = 885489205) 40 >60 L Ranges were taken from the National Kidney Disease Education Program and the [facility] Kid[facility] Foundation literature.Reference ranges:60 or greater: Jjolxx66-28 ( for 3 consecutive months): Chronic kidney disease 15 or less: Kidney failureAscension Seton Medical Center AustinGlucose Oxvne9070-44-10 05:58:00* Test Item Value Reference Range Interpretation Comments Glucose Level (test code = QSG5080) 98 74-118 [facility] AustinCalcium Alufx8000-87-12 05:58:00* Test Item Value Reference Range Interpretation Comments Calcium Level (test code = 81772-8) 9.5 8.4-10.2 [facility] AustinWhite Blood Ozgrl3709-20-05 05:07:00* Test Item Value Reference Range Interpretation Comments White Blood Count (test code = 6690-2) 4.69 4.8-10.8 L [facility] AustinRed Blood Ggdbc0396-59-85 05:07:00* Test Item Value Reference Range Interpretation Comments Red Blood Count (test code = 789-8) 3.65 4.3-5.7 L [facility] AustinHemoglobin2019-08-02 05:07:00* Test Item Value Reference Range Interpretation Comments Hemoglobin (test code = 58117-6) 9.9 14.0-18.0 L [facility] AustinHematocrit2019-08-02 05:07:00* Test Item Value Reference Range Interpretation Comments Hematocrit (test code = 4544-3) 32.7 38.2-49.6 L [facility] AustinMean Corpuscular Tcjfzx0354-38-13 05:07:00* Test Item Value Reference Range Interpretation Comments Mean Corpuscular Volume (test code = 787-2) 89.6 81-99 [facility] AustinMean Corpuscular Lovqwpdsds8798-36-01 05:07:00* Test Item Value Reference Range Interpretation Comments Mean Corpuscular Hemoglobin (test code = 785-6) 27.1 28-32 L [facility] AustinMean Corpuscular Hemoglobin Concent 2019-05-28 05:07:00* Test Item Value Reference Range Interpretation Comments Mean Corpuscular Hemoglobin Concent (test code = 786-4) 30.3 31-35 L [facility] AustinRed Cell Distribution Rarfl9685-57-43 05:07:00* Test Item Value Reference Range Interpretation Comments Red Cell Distribution Width (test code = 62578-6) 15.2 11.7 -14.4 H [facility] AustinPlatelet Zrufh5706-76-66 05:07:00* Test Item Value Reference Range Interpretation Comments Platelet Count (test code = 777-3) 194 140-360 [facility] AustinNeutrophils (%) (Auto)2019-05-28 05:07:00 * Test Item Value Reference Range Interpretation Comments Neutrophils (%) (Auto) (test code = 95450-4) 54.5 38.7-80.0 [facility] AustinLymphocytes (%) (Auto)2019-05-28 05:07:00 * Test Item Value Reference Range Interpretation Comments Lymphocytes (%) (Auto) (test code = 736-9) 23.2 18.0-39.1 [facility] AustinMonocytes (%) (Auto)2019-05-28 05:07:00* Test Item Value Reference Range Interpretation Comments Monocytes (%) (Auto) (test code = 5905-5) 15.1 4.4-11.3 H [facility] AustinEosinophils (%) (Auto)2019-05-28 05:07:00 * Test Item Value Reference Range Interpretation Comments Eosinophils (%) (Auto) (test code = 713-8) 6.4 0.0-6.0 H [facility] AustinBasophils (%) (Auto)2019-05-28 05:07:00* Test Item Value Reference Range Interpretation Comments Basophils (%) (Auto) (test code = 706-2) 0.6 0.0-1.0 [facility] AustinIM GRANULOCYTES %2019-05-28 05:07:00* Test Item Value Reference Range Interpretation Comments IM GRANULOCYTES % (test code = IM GRANULOCYTES %) 0.2 0.0- 1.0 [facility] AustinNeutrophils # (Auto)2019-05-28 05:07:00* Test Item Value Reference Range Interpretation Comments Neutrophils # (Auto) (test code = 751-8) 2.6 2.1-6.9 [facility] AustinLymphocytes # (Auto)2019-05-28 05:07:00* Test Item Value Reference Range Interpretation Comments Lymphocytes # (Auto) (test code = 48983-3) 1.1 1.0-3.2 [facility] AustinMonocytes # (Auto)2019-05-28 05:07:00* Test Item Value Reference Range Interpretation Comments Monocytes # (Auto) (test code = 742-7) 0.7 0.2-0.8 [facility] AustinEosinophils # (Auto)2019-05-28 05:07:00* Test Item Value Reference Range Interpretation Comments Eosinophils # (Auto) (test code = 711-2) 0.3 0.0-0.4 [facility] AustinBasophils # (Auto)2019-05-28 05:07:00* Test Item Value Reference Range Interpretation Comments Basophils # (Auto) (test code = 704-7) 0.0 0.0-0.1 [facility] AustinAbsolute Immature Granulocyte (auto 2019-05-28 05:07:00* Test Item Value Reference Range Interpretation Comments Absolute Immature Granulocyte (auto (bharat t code = Absolute Immature Granulocyte (auto) 0.01 0-0.1 [facility] AustinBlood Khetjff5615-79-26 18:36:00* Test Item Value Reference Range Interpretation Comments Blood Culture (test code = 01614484) NO GROWTH AFTER 24 HOURS [facility] AustinCT BRAIN YV1548-63-80 14:11:00 [place] [address] Patient Name: STEVE BENEDICT MR #: [id number] : 1945 Age/Sex: 73/M Req #: [id number] Adm Physician: ROSALIE SHORT MD Ordered by: Samara Das PAYROLL CLERK Report #: [id number] Location: MED/SURG2 Room/Bed: [facility] Procedure: C T/CT BRAIN WO Exam Date: [...] By: ERAN on 05/27/19 1412 COPY TO: SMAARA DAS N P MRI BRAIN DC3085-94-27 14:08:00 [place] [address] Patient Name: STEVE BENEDICT MR #: [id number] : 1945 Age/Sex: 73/M Req #: [id number] Adm Physician: ROSALIE SHORT MD Ordered by: Samara Das PAYROLL CLERK Report #: [id number] Location: MED/SURG2 Room/Bed: [facility] Procedure: [id number] M RI/MRI BRAIN WO Exam Date: Exam [...] Comments B-Type Natriuretic Peptide (test code = 11576-7) 328.4 0-100 H [facility] AustinMagnesium Qexeg8198-69-16 08:44:00* Test Item Value Reference Range Interpretation Comments Magnesium Level (test code = 01217-5) 2.2 1.3-2.1 H [facility] AustinLactic Acid Pknwn6840-78-73 21:03:00* Test Item Value Reference Range Interpretation Comments Lactic Acid Level (test code = Lactic Acid Level) 14.1 4.5- 19.8 [facility] AustinLactic Acid Ghzwz8764-81-36 21:03:00* Test Item Value Reference Range Interpretation Comments Lactic Acid Level (test code = Lactic Acid Level) 14.1 4.5- 19.8 [facility] AustinUrine JSJ0968-38-94 18:55:00* Test Item Value Reference Range Interpretation Comments Urine WBC (test code = 5821-4) 0-5 0-5 [facility] AustinUrine ICP4866-87-03 18:55:00* Test Item Value Reference Range Interpretation Comments Urine RBC (test code = 00852-0) NONE 0-5 [facility] AustinUrine Njxtetmy4624-07-90 18:55:00* Test Item Value Reference Range Interpretation Comments Urine Bacteria (test code = 55853-9) NONE NONE [facility] AustinUrine Epithelial Vbwfd9694-81-35 18:55:00 * Test Item Value Reference Range Interpretation Comments Urine Epithelial Cells (test code = 89907-7) RARE NONE [facility] AustinUrine Renal Epithelial Yrlfn9192-49-23 18:55:00* Test Item Value Reference Range Interpretation Comments Urine Renal Epithelial Cells (test code = 32090-8) RARE NON E H [facility] AustinUrine Renal Epithelial Euiwz7548-37-23 18:55:00* Test Item Value Reference Range Interpretation Comments Urine Renal Epithelial Cells (test code = 42526-2) RARE NON E H [facility] AustinUrine Renal Epithelial Hsztw3428-19-96 18:55:00* Test Item Value Reference Range Interpretation Comments Urine Renal Epithelial Cells (test code = 56660-7) RARE NON E H [facility] AustinUrine Renal Epithelial Sjpsg3474-98-00 18:55:00* Test Item Value Reference Range Interpretation Comments Urine Renal Epithelial Cells (test code = 56792-7) RARE NON E H [facility] AustinUrine Renal Epithelial Yxvht0648-95-93 18:55:00* Test Item Value Reference Range Interpretation Comments Urine Renal Epithelial Cells (test code = 09942-6) RARE NON E H [facility] AustinUrine Rhztv1482-74-61 18:43:00* Test Item Value Reference Range Interpretation Comments Urine Color (test code = 5778-6) YELLOW YELLOW [facility] AustinUrine Xvmdzrt9839-33-20 18:43:00* Test Item Value Reference Range Interpretation Comments Urine Clarity (test code = 20567-2) CLEAR CLEAR [facility] AustinUrine Specific Hraofzg8315-30-71 18:43:00 * Test Item Value Reference Range Interpretation Comments Urine Specific [place] (test code = 5811-5) 1.010 1.010-1.02 5 [facility] AustinUrine zV9727-31-82 18:43:00* Test Item Value Reference Range Interpretation Comments Urine pH (test code = 71283-3) 7 5-7 [facility] AustinUrine Leukocyte Hkjcetgv7145-85-45 18:43:00* Test Item Value Reference Range Interpretation Comments Urine Leukocyte Esterase (test code = 30250-9) NEGATIVE NEGATIV E [facility] AustinUrine Praqnyr5541-85-05 18:43:00* Test Item Value Reference Range Interpretation Comments Urine Nitrite (test code = 63416-2) NEGATIVE NEGATIVE [facility] AustinUrine Rdmpvbo6120-65-99 18:43:00* Test Item Value Reference Range Interpretation Comments Urine Protein (test code = 30821-2) NEGATIVE NEGATIVE [facility] AustinUrine Glucose (UA)2019-05-26 18:43:00* Test Item Value Reference Range Interpretation Comments Urine Glucose (UA) (test code = 47970-9) NEGATIVE NEGATIVE [facility] AustinUrine Wcwlkci1849-59-75 18:43:00* Test Item Value Reference Range Interpretation Comments Urine Ketones (test code = 07237-0) NEGATIVE NEGATIVE [facility] AustinUrine Qbzieimszihq6463-52-72 18:43:00* Test Item Value Reference Range Interpretation Comments Urine Urobilinogen (test code = 71480-5) 0.2 0.2-1 [facility] AustinUrine Mhlopocty0902-14-13 18:43:00* Test Item Value Reference Range Interpretation Comments Urine Bilirubin (test code = 1977-8) NEGATIVE NEGATIVE [facility] AustinUrine Szmxf6423-39-30 18:43:00* Test Item Value Reference Range Interpretation Comments Urine Blood (test code = 41580-1) NEGATIVE NEGATIVE [facility] AustinCHEST 2 AVDXM5605-44-09 16:20:00 [facility] [address] [address] Patient Name: STEVE BENEDICT MR #: [id number] : 1945 Age/Sex: 73/M Req #: [id number] Adm Physician: Ordered by: TROY CODY MD Report #: [id number] Location: ER Room/Bed: Procedure: [id number] D X/CHEST 2 VIEWS Exam Date: 05/26/19 [...] Dictated By: ERNESTINE HOUSER MD COPY TO: Elysas CODY MD Creatine Kinase [id number] 15:20:00* Test Item Value Reference Range Interpretation Comments Creatine Kinase MB (test code = 77871-6) 2.80 0-5.0 [facility] AustinTroponin Q1675-70-57 15:20:00* Test Item Value Reference Range Interpretation Comments Troponin I (test code = LJY3120) 0.013 0-0.300 [facility] Geyxwjbyv6153-59-14 15:15:00* Test Item Value Reference Range Interpretation Comments Total Bilirubin (test code = 1975-2) 0.4 0.2-1.2 [facility] AustinAspartate Amino Transf (AST/SGOT) 2019-05-26 15:15:00* Test Item Value Reference Range Interpretation Comments Aspartate Amino Transf (AST/SGOT) (test code = Aspartate Amino Transf (AST/SGOT)) 13 5-34 [facility] AustinAlanine Aminotransferase (ALT/SGPT) 2019-05-26 15:15:00* Test Item Value Reference Range Interpretation Comments Alanine Aminotransferase (ALT/SGPT) (test code = 1742-6) 10 0-55 [facility] AustinTotal Vlxxgip3770-29-36 15:15:00* Test Item Value Reference Range Interpretation Comments Total Protein (test code = 2885-2) 6.5 6.5-8.1 [facility] AustinAlbumin2019-07-31 15:15:00* Test Item Value Reference Range Interpretation Comments Albumin (test code = 1751-7) 3.3 3.5-5.0 L [facility] AustinGlobulin2019-07-31 15:15:00* Test Item Value Reference Range Interpretation Comments Globulin (test code = 67625-0) 3.2 2.3-3.5 [facility] AustinAlbumin/Globulin Aoaja4226-70-04 15:15:00 * Test Item Value Reference Range Interpretation Comments Albumin/Globulin Ratio (test code = 1759-0) 1.0 0.8-2.0 [facility] AustinAlkaline Xwwgbmwkdlb4222-00-21 15:15:00* Test Item Value Reference Range Interpretation Comments Alkaline Phosphatase (test code = 6768-6) 109 40-150 [facility] AustinCreatine Oidxhm0790-11-31 15:15:00* Test Item Value Reference Range Interpretation Comments Creatine Kinase (test code = 2157-6) 89 30-200 [facility] AustinLipase2019-07-31 15:15:00* Test Item Value Reference Range Interpretation Comments Lipase (test code = 3040-3) [facility] AustinLipase2019-07-31 15:15:00* Test Item Value Reference Range Interpretation Comments Lipase (test code = 3040-3) [facility] AustinLipase2019-07-31 15:15:00* Test Item Value Reference Range Interpretation Comments Lipase (test code = 3040-3) [facility] AustinLipase2019-07-31 15:15:00* Test Item Value Reference Range Interpretation Comments Lipase (test code = 3040-3) [facility] AustinLipase2019-07-31 15:15:00* Test Item Value Reference Range Interpretation Comments Lipase (test code = 3040-3) [facility] AustinCHEST SINGLE (PORTABLE)2019-05-26 15:08:00 [facility] [address] [place] [address] Patient Name: STEVE BENEDICT MR #: [id number] : 1945 Age/Sex: 73/M Req #: [id number] Adm Physician: Ordered by: TROY CODY MD Report #: [id number] Location: ER Room/Bed: Procedure: [id number] D X/CHEST SINGLE (PORTABLE) Exam Date: 05/26/19 [...] TO: TROY CODY MD Activated Partial Thromboplast Dqaf3845-89-70 15:05:00* Test Item Value Reference Range Interpretation Comments Activated Partial Thromboplast Time (test code = 71535-0) 56.4 23.8-35.5 H [facility] AustinProthrombin Ygfi6103-56-06 15:04:00* Test Item Value Reference Range Interpretation Comments Prothrombin Time (test code = 5902-2) 18.3 11.9-14.5 H [facility] AustinProthromb Time International Ratio 2019-05-26 15:04:00* Test Item Value Reference Range Interpretation Comments Prothromb Time International Ratio (test code = 6301-6) 1.46 Oral Anticoagulant Therapy INR Values:1. Low Intensity Therapy 1.5 - 2.02 . Moderate Intensity Therapy 2.0 - 3.03. High Intensity Therapy(1) 2.5 - 3. 54. High Intensity Therapy(2) 3.0 - 4.05. Panic Value INR > 5.0 [facility] HGNIA9774-42-80 17:35:00Trace *NA*(05/18/19 12:35 PM[facility] SBZBA6040[facility]34[facility]40 17:35:00Negative *NA*(05/18/19 12:35 PM)[facility] HCGAT8152-45-03 17:35:000.2 [facility] HNTDU2770-85-84 17:35:00Positive *ABN*(05/18/19 12:35 PM[facility] EFOYY6689-38-21 17:35:00Small *ABN*(05/18/19 12:35 PM[facility] CGWFJ8835-26-76 17:35:00Yellow *NA*(05/18/19 12:35 PM)[facility] YUJLO4838-46-99 17:35:00Clear *NA*(05/18/19 12:35 PM)[facility] KMJML9351-50-64 17:35:00* Test Item Value Reference Range Interpretation Comments POC UA SG (test code = POC UA SG) 1.015 1 [facility] NXBYJ4435-66-43 17:35:00* Test Item Value Reference Range Interpretation Comments POC UA pH (test code = POC UA pH) 6.5 1 5.0-8.0 [facility] Vivek- CT HEAD/BRAIN W/O OSMT6389-32-04 05:58:00 Name: STEVE BENEDICT [facility] : 1945 Age/S: 73 / M [address] Unit #: [id number] Loc: [place] [address] Phys: Bernard Coon MD Acct: [id number] Dis Date: Status: REG ER PHONE #: [phone] Exam Date: 05/05/2019439 FAX #: [phone] Reason: Pain s/p Fall EXAMS: CPT CODE: [id number] CT HEAD/BRAIN W/O CONT 02101 EXAM: - CT HEAD/BRAIN W/O CONT Location [...] 1 Signed Report (CONTINUED) Name: STEVE BENEDICT [facility] : 1945 Age/S: 73 / M [address] [facility] Unit #: [id number] Loc: [place] [address] Phy s: Bernard Coon MD Acct: [id number] Dis Date: Status: REG ER PHONE #: [phone] Exam Date: 05/05/2019 0440 FAX #: [phone] Reason: Pain s/p Fall EXAMS: CPT CODE: [id number] CT HEAD/BRAIN W/O CONT 13491 <Continued> at 0558 Reported and signed by: Garry Hughes MD CC: Bernard Coon MD; Teofilo Summers MD Tech nologist:CEASAR CLARK RT(R),RDMS,CT CTDI: DLP: Trnscb Date/Ti me: 05/05/2019 (0558) [email or web address] Orig Print D/T: S: 2018 (0601) PAGE 2 Signed Report - CT CHEST W/O AHAFBUJH8854-56-54 05:52:00 Name: STEVE BENEDICT [facility] : 1945 Age/S: 73 / M [address] [facility] Unit #: [id number] Loc: [place] [address] Phys: Bernard Coon MD Acct: [id number] Dis Date: Status: REG ER PHONE #: [phone] Exam Date: 05/05/2019439 FAX #: [phone] Reason: Pain s/p Fall EXAMS: CPT CODE: [id number] CT CHEST W/O CONTRAST 06955 HISTORY: Pain and fall COMPARISON:None TECHNIQUE: Axial [...] 1 Signed Report (CONTINUED) Name: STEVE SIN [facility] : 1945 Age/S: 73 / M [address] Unit #: [id number] Lo c: [place] [address] Phys: Bernard Coon MD Acct: [id number] Dis Date: Status: REG ER PHONE #: [phone] Exam Date: 05/05/2019439 FAX #: [phone] Reason: Pain s/p Fall EXAMS: CPT CODE: [id number] CT CHEST W/O CONTRAST 83933 <Continued> Degenerative changes of the spine and [...] Signed Report - CT ABD PELVIS W/O KJBS2879-84-12 05:52:00 Name: STEVE BENEDICT [facility] : 1945 Age/S: 73 / M [address] Unit #: [id number] Loc: [place] [address] Phys: Hannon MD Acct: [id number] Di s Date: Status: REG ER PHONE #: Exam Date: 05/05/2019439 FAX #: Reason: Pain s/p Fall EXAMS: CPT CODE: [id number] CT ABD PELVIS W/O CONT 29904 HISTORY: Pain and fall COMPARISON:None TECHNIQUE: Axial [...] 1 Signed Report (CONTINUED) Name: STEVE SIN [facility] : 1945 Age/S: 73 / M [address] [facility] Unit #: [id number] Lo c: [place] [address] Phys: Bernard Coon MD Acct: [id number] Dis Date: Status: REG ER PHONE #: [phone] Exam Date: 05/05/2019439 FAX #: [phone] Reason: Pain s/p Fall EXAMS: CPT CODE: [id number] CT ABD PELVIS W/O CONT 65086 <Continued> Degenerative changes of the spine and [...] (0552) [email or web address] Orig Print D/T: S: 05/05/2019 (1060) PAGE 2 Signed Report - CT C-SPINE W/O DIQOKWWY2631-06-29 05:51:00 Name: STEVE BENEDICT [facility] : 1945 Age/S: 73 / M [address] Unit #: [id number] Loc: [place] [address] Phys: Hannon MD Acct: [id number] Di s Date: Status: REG ER PHONE #: [phone] Exam Date: 05/05/2019 044 FAX #: Reason: Pain s/p Fall EXAMS: CPT CODE: [id number] CT C-SPINE W/O CONTRAST 65826 EXAM: - CT C-SPINE W/O C ONTRAST [...] Technologist:CEASAR CLARK(R),RDMS,CT CTDI: DLP: Trnscb Date/Time: 05/05/2019 (0536) [email or web address] Orig Print D/T: S: 05/05/2019 (0558) PAGE 1 Signed Report - XR ELBOW 3 + V [id number] 05:45:00 [facility] : 1945 Age/S:73 /M [address] [place] [address] Unit#:[id number] Loc: [place] [address] Phys: Hannon MD Dis Date: PHONE #: [phone] Status: REG ER FAX #: [phone] Exam Date: 05/05/2019 Re ason: S/P FALL EXAMS: CPT CODE: [id number] XR ELBOW 3 + V RT [address]8077 HISTORY: Pain Location: C3 FINDINGS: Right elbow: [...] Report - XR ELBOW 3 + V YB9822-09-25 05:45:00 [facility] : 1945 Age/S:73 /M [address] [address] Unit#:[id number] Loc: [place] [address] Phys: Hannon MD Dis Date: PHONE #: [phone] Status: REG ER FAX #: [phone] Exam Date: 05/05/2019 Re ason: Pain s/p Fall EXAMS: CPT CODE: [id number] XR ELBOW 3 + V LT [address]83 HISTORY: Pain Location: C3 FINDINGS: Right elbow: [...] Report - XR WRIST 3 + V [id number] 05:45:00 Name: STEVE BENEDICT [facility] : 1945 Age/S:73 /M [address] [address] [facility] Unit#:[id number] Loc: [place] [address] Phys: Hannon MD Dis Date: PHONE #: [phone] Status: REG ER FAX #: [phone] Exam Date: 05/05/2019 Re ason: Pain s/p Fall EXAMS: CPT CODE: [id number] XR WRIST 3 + V RT [address]8401 HISTORY: Pain Location: C3 FINDINGS: Right elbow: [...] Garry Hughes MD on 0 05/05/2019 at 0556 Reported and signed by: Garry Hughes MD CC: Bernard Coon MD; Teofilo Summers MD T echnologist: CEASAR CLARK RT(R),RDMS,CT Trnscrpt Keshav a: 05/05/2019 (0545) [email or web address] Orig Print D/T: S: 05/05 (0548) PAGE 1 Signed Report - XR WRIST 3 + V [id number] 05:45:00 Name: STEVE BENEDICT [facility] : 1945 Age/S:73 /M [address] Unit#:[id number] Loc: [place] [address] Phys: Hannon MD Dis Date: PHONE #: [phone] Status: DEP ER FAX #: [phone] Exam Date: 05/05/2019 Re ason: Pain s/p Fall EXAMS: CPT CODE: [id number] XR WRIST 3 + V RT 59089 HISTORY: Pain Location: C3 FINDINGS: Right elbow: [...] CEASAR CLARK RT(R),RDMS,CT Trnscrpt Keshav a: 05/05/2019 (0580) [email or web address] Orig Print D/T: S: 05/05 (7226) PAGE 1 Signed Report BASIC METABOLIC ESDPH6774-55-88 04:50:00* Test Item Value Reference Range Interpretation [...] CA) 8.9 mg/dL 8.4-10.2 N HEPATIC FUNCTION LVVNU3519-71-47 04:50:00* Test Item Value Reference Range Interpretation [...] code = ALKP) 98 U/L 38-126 N JHODYUVNQ2065-39-16 04:50:00* Test Item Value Reference Range Interpretation Comments MAGNESIUM (test code = MAG) 2.4 mg/dL 1.6-2.3 H XMXURBFN-M5868-48-10 04:50:00* Test Item Value Reference Range Interpretation Comments TROPONIN-I (test code = TROPI) 0.02 ng/mL 0.00-0.056 N BASIC METABOLIC EMURZ1449-70-69 04:48:00* Test Item Value Reference Range Interpretation [...] CA) 8.9 mg/dL 8.4-10.2 N HEPATIC FUNCTION LJXDT1856-98-28 04:48:00* Test Item Value Reference Range Interpretation [...] code = ALKP) 98 U/L 38-126 N HACYKNSAP1591-52-55 04:48:00* Test Item Value Reference Range Interpretation Comments MAGNESIUM (test code = MAG) 2.4 mg/dL 1.6-2.3 H QTRWTDRY-T1109-61-10 04:48:00* Test Item Value Reference Range Interpretation Comments TROPONIN-I (test code = TROPI) 0.02 ng/mL 0.00-0.056 N PROTHROMBIN [id number] 04:44:00* Test Item Value Reference Range Interpretation [...] CA) 8.9 mg/dL 8.4-10.2 N HEPATIC FUNCTION HPIRA4003-59-40 04:43:00* Test Item Value Reference Range Interpretation [...] TOTAL (test code = ALKP) IUnit/L 45-117 YQNKIGROK5644-08-55 04:43:00* Test Item Value Reference Range Interpretation Comments MAGNESIUM (test code = MAG) mg/dL 1.8-2.4 SPDFMGYZ-D7146-56-10 04:43:00* Test Item Value Reference Range Interpretation Comments TROPONIN-I (test code = TROPI) ng/mL 0-0.045 CBC W/AUTO IGUR3410-41-14 04:30:00* Test Item Value Reference Range Interpretation [...] REQUIRED (test code = MDIFF) NO Bedside Enqdekg3883-60-61 09:07:00* Test Item Value Reference Range Interpretation Comments Bedside Glucose (test code = 55472-1) 126 70-120 H Meter ID: [id number] [facility] Systemodium Level 2019-05-04 06:01:00* Test Item Value Reference Range Interpretation Comments Sodium Level (test code = 2951-2) 138 136-145 [facility] AustinPotassium Ngwfi0882-08-57 06:01:00* Test Item Value Reference Range Interpretation Comments Potassium Level (test code = 2823-3) 3.5 3.5-5.1 [facility] AustinChloride Ehoaj5256-85-18 06:01:00* Test Item Value Reference Range Interpretation Comments Chloride Level (test code = 2075-0) 81 98-107 L [facility] AustinCarbon Dioxide Hjfuk8666-30-75 06:01:00* Test Item Value Reference Range Interpretation Comments Carbon Dioxide Level (test code = 2028-9) 43 22-29 HH Results repeated and called to AMINA LEWIS RN at 0600 on 05/04/19 by Roula kincaid Read back and verified.[facility] AustinAnion Gap 2019-05-04 06:01:00* Test Item Value Reference Range Interpretation Comments Anion Gap (test code = 22647-3) 17.5 8-16 H [facility] AustinBlood Urea Ezyvtuqg7877-34-23 06:01:00* Test Item Value Reference Range Interpretation Comments Blood Urea Nitrogen (test code = 3094-0) 95 7-26 H [facility] AustinCreatinine2019-07-09 06:01:00* Test Item Value Reference Range Interpretation Comments Creatinine (test code = 2160-0) 2.57 0.72-1.25 H [facility] AustinBUN/Creatinine Lfmvt3390-48-65 06:01:00* Test Item Value Reference Range Interpretation Comments BUN/Creatinine Ratio (test code = 3097-3) 37 6-25 H [facility] AustinEstimat Glomerular Filtration Rate 2019-05-04 06:01:00* Test Item Value Reference Range Interpretation Comments Estimat Glomerular Filtration Rate (test code = 215179364) 25 >60 L Ranges were taken from the National Kidney Disease Education Program and the [facility] Kid[employer] Foundation literature.Reference ranges:60 or greater: Fgjkym87-78 ( for 3 consecutive months): Chronic kidney disease 15 or less: Kidney failureAscension Seton Medical Center AustinGlucose Nwqzd0326-25-48 06:01:00* Test Item Value Reference Range Interpretation Comments Glucose Level (test code = YCX2196) 120 74-118 H [facility] AustinCalcium Adbrd7565-81-96 06:01:00* Test Item Value Reference Range Interpretation Comments Calcium Level (test code = 88670-2) 10.2 8.4-10.2 [facility] AustinMagnesium Bktoi6225-68-15 06:01:00* Test Item Value Reference Range Interpretation Comments Magnesium Level (test code = 68341-5) 3.1 1.3-2.1 H [facility] AustinB-Type Natriuretic Wdyffjm9102-27-18 05:55:00* Test Item Value Reference Range Interpretation Comments B-Type Natriuretic Peptide (test code = 98095-4) 175.1 0-100 H [facility] AustinWhite Blood Rdoqh6791-43-72 05:32:00* Test Item Value Reference Range Interpretation Comments White Blood Count (test code = 6690-2) 10.03 4.8-10.8 [facility] Blood Elxgd2825-07-42 05:32:00* Test Item Value Reference Range Interpretation Comments Red Blood Count (test code = 789-8) 5.79 4.3-5.7 H [facility] AustinHemoglobin2019-07-09 05:32:00* Test Item Value Reference Range Interpretation Comments Hemoglobin (test code = 65618-8) 16.2 14.0-18.0 [facility] AustinHematocrit2019-07-09 05:32:00* Test Item Value Reference Range Interpretation Comments Hematocrit (test code = 4544-3) 51.0 38.2-49.6 H [facility] AustinMean Corpuscular Djjpek6710-22-23 05:32:00* Test Item Value Reference Range Interpretation Comments Mean Corpuscular Volume (test code = 787-2) 88.1 81-99 [facility] AustinMean Corpuscular Eiendawzdf8029-32-81 05:32:00* Test Item Value Reference Range Interpretation Comments Mean Corpuscular Hemoglobin (test code = 785-6) 28.0 28-32 [facility] Hemoglobin Concent 2019-05-04 05:32:00* Test Item Value Reference Range Interpretation Comments Mean Corpuscular Hemoglobin Concent (test code = 786-4) 31.8 31-35 [facility] AustinRed Cell Distribution Gyuib3379-11-64 05:32:00* Test Item Value Reference Range Interpretation Comments Red Cell Distribution Width (test code = 94936-3) 14.8 11.7 -14.4 H [facility] AustinPlatelet Tlvbr4679-36-14 05:32:00* Test Item Value Reference Range Interpretation Comments Platelet Count (test code = 777-3) 292 140-360 [facility] AustinNeutrophils (%) (Auto)2019-05-04 05:32:00 * Test Item Value Reference Range Interpretation Comments Neutrophils (%) (Auto) (test code = 03641-6) 77.1 38.7-80.0 [facility] AustinLymphocytes (%) (Auto)2019-05-04 05:32:00 * Test Item Value Reference Range Interpretation Comments Lymphocytes (%) (Auto) (test code = 736-9) 14.1 18.0-39.1 L [facility] AustinMonocytes (%) (Auto)2019-05-04 05:32:00* Test Item Value Reference Range Interpretation Comments Monocytes (%) (Auto) (test code = 5905-5) 8.2 4.4-11.3 [facility] AustinEosinophils (%) (Auto)2019-05-04 05:32:00 * Test Item Value Reference Range Interpretation Comments Eosinophils (%) (Auto) (test code = 713-8) 0.0 0.0-6.0 [facility] AustinBasophils (%) (Auto)2019-05-04 05:32:00* Test Item Value Reference Range Interpretation Comments Basophils (%) (Auto) (test code = 706-2) 0.1 0.0-1.0 [facility] AustinIM GRANULOCYTES %2019-05-04 05:32:00* Test Item Value Reference Range Interpretation Comments IM GRANULOCYTES % (test code = IM GRANULOCYTES %) 0.5 0.0- 1.0 [facility] AustinNeutrophils # (Auto)2019-05-04 05:32:00* Test Item Value Reference Range Interpretation Comments Neutrophils # (Auto) (test code = 751-8) 7.7 2.1-6.9 H [facility] AustinLymphocytes # (Auto)2019-05-04 05:32:00* Test Item Value Reference Range Interpretation Comments Lymphocytes # (Auto) (test code = 00346-1) 1.4 1.0-3.2 [facility] AustinMonocytes # (Auto)2019-05-04 05:32:00* Test Item Value Reference Range Interpretation Comments Monocytes # (Auto) (test code = 742-7) 0.8 0.2-0.8 [facility] AustinEosinophils # (Auto)2019-05-04 05:32:00* Test Item Value Reference Range Interpretation Comments Eosinophils # (Auto) (test code = 711-2) 0.0 0.0-0.4 [facility] AustinBasophils # (Auto)2019-05-04 05:32:00* Test Item Value Reference Range Interpretation Comments Basophils # (Auto) (test code = 704-7) 0.0 0.0-0.1 [facility] AustinAbsolute Immature Granulocyte (auto 2019-05-04 05:32:00* Test Item Value Reference Range Interpretation Comments Absolute Immature Granulocyte (auto (bharat t code = Absolute Immature Granulocyte (auto) 0.05 0-0.1 [facility] AustinBlood Bcgznqh1088-20-01 17:48:00* Test Item Value Reference Range Interpretation Comments Blood Culture (test code = 59525695) NO GROWTH AFTER 72 HOURS [facility] AustinUric Lxeu7043-64-48 18:10:00* Test Item Value Reference Range Interpretation Comments Uric Acid (test code = 3084-1) 8.3 4.8-8.0 H [facility] AustinUric Iwvc6188-98-07 18:10:00* Test Item Value Reference Range Interpretation Comments Uric Acid (test code = 3084-1) 8.3 4.8-8.0 H [facility] AustinUric Kyav6252-67-14 18:10:00* Test Item Value Reference Range Interpretation Comments Uric Acid (test code = 3084-1) 8.3 4.8-8.0 H [facility] AustinUric Hshl5585-77-30 18:10:00* Test Item Value Reference Range Interpretation Comments Uric Acid (test code = 3084-1) 8.3 4.8-8.0 H [facility] AustinUric Angd7941-51-28 18:10:00* Test Item Value Reference Range Interpretation Comments Uric Acid (test code = 3084-1) 8.3 4.8-8.0 H [facility] AustinUric Fwsq7300-19-70 18:10:00* Test Item Value Reference Range Interpretation Comments Uric Acid (test code = 3084-1) 8.3 4.8-8.0 [facility] XZ6059-20-04 08:40:00 [facility] [address] [address] Patient Name: STEVE BENEDICT MR #: [id number] : 1945 Age/Sex: 73/M Req #: [id number] Adm Physician: ROSALIE SHORT MD Ordered by: Samara Das PAYROLL CLERK Report #: [id number] Location: MED/SURG2 Room/Bed: 213 Procedure: [id number] M RI/MRI HAND RIGHT WO Exam Date: [...] ERAN on 04/30/19846 COPY TO: SAMARA DAS PAYROLL CLERK Hemoglobin A1c Hkfgalb9453-21-57 15:13:00* Test Item Value Reference Range Interpretation Comments Hemoglobin A1c Percent (test code = Hemoglobin A1c Percent) 5.6 4.0-7.0 [facility] AustinHemoglobin A1c Mxpojiw3027-40-20 15:13:00 * Test Item Value Reference Range Interpretation Comments Hemoglobin A1c Percent (test code = Hemoglobin A1c Percent) 5.6 4.0-7.0 [facility] AustinCreatine Xgbgqm7661-30-99 14:30:00* Test Item Value Reference Range Interpretation Comments Creatine Kinase (test code = 2157-6) 73 30-200 [facility] AustinCreatine Kinase TM6608-97-26 13:53:00* Test Item Value Reference Range Interpretation Comments Creatine Kinase MB (test code = 59731-2) 2.50 0-5.0 [facility] AustinTroponin C9033-65-99 13:53:00* Test Item Value Reference Range Interpretation Comments Troponin I (test code = OUO5868) < 0.001 0-0.300 [facility] AustinTotal Vrgnkvqui2353-30-35 06:34:00* Test Item Value Reference Range Interpretation Comments Total Bilirubin (test code = 1975-2) 0.5 0.2-1.2 [facility] AustinAspartate Amino Transf (AST/SGOT) 2019-04-24 06:34:00* Test Item Value Reference Range Interpretation Comments Aspartate Amino Transf (AST/SGOT) (test code = Aspartate Amino Transf (AST/SGOT)) 16 5-34 [facility] AustinAlanine Aminotransferase (ALT/SGPT) 2019-04-24 06:34:00* Test Item Value Reference Range Interpretation Comments Alanine Aminotransferase (ALT/SGPT) (test code = 1742-6) 13 0-55 [facility] AustinTotal Mwshemr1331-33-82 06:34:00* Test Item Value Reference Range Interpretation Comments Total Protein (test code = 2885-2) 6.3 6.5-8.1 L [facility] AustinAlbumin2019-06-29 06:34:00* Test Item Value Reference Range Interpretation Comments Albumin (test code = 1751-7) 3.4 3.5-5.0 L [facility] AustinGlobulin2019-06-29 06:34:00* Test Item Value Reference Range Interpretation Comments Globulin (test code = 01697-7) 2.9 2.3-3.5 [facility] AustinAlbumin/Globulin Mujvw4961-23-43 06:34:00 * Test Item Value Reference Range Interpretation Comments Albumin/Globulin Ratio (test code = 1759-0) 1.2 0.8-2.0 [facility] AustinAlkaline Kyvobzjqegw2969-52-50 06:34:00* Test Item Value Reference Range Interpretation Comments Alkaline Phosphatase (test code = 6768-6) 87 40-150 [facility] AustinCHEST 2 BEOMI1173-08-33 18:58:00 [facility] [address] [address] Patient Name: STEVE BENEDICT MR #: [id number] : 1945 Age/Sex: 73/M Req #: [id number] Adm Physician: Ordered by: IBAN RAMOS MD Report #: [id number] Location: ER Room/Bed: Procedure: [id number] DX/ CHEST 2 VIEWS Exam Date: 04/23/19 [...] 01 COPY TO: IBAN RAMOS MD Prothrombin Lymd4627-85-87 18:33:00* Test Item Value Reference Range Interpretation Comments Prothrombin Time (test code = 5902-2) 13.7 11.9-14.5 [facility] AustinProthromb Time International Ratio 2019-04-23 18:33:00* Test Item Value Reference Range Interpretation Comments Prothromb Time International Ratio (test code = 6301-6) 1.00 Oral Anticoagulant Therapy INR Values:1. Low Intensity Therapy 1.5 - 2.02 . Moderate Intensity Therapy 2.0 - 3.03. High Intensity Therapy(1) 2.5 - 3. 54. High Intensity Therapy(2) 3.0 - 4.05. Panic Value INR > 5.0 [facility] AustinActivated Partial Thromboplast Time 2019-04-23 18:33:00* Test Item Value Reference Range Interpretation Comments Activated Partial Thromboplast Time (test code = 37407-6) 35.8 23.8-35.5 H [facility] AustinUrine XLW8408-27-85 18:19:00* Test Item Value Reference Range Interpretation Comments Urine WBC (test code = 5821-4) 6-10 0-5 H [facility] AustinUrine UJW0021-74-25 18:19:00* Test Item Value Reference Range Interpretation Comments Urine RBC (test code = 81213-1) NONE 0-5 [facility] AustinUrine Kyekmvgu6753-63-66 18:19:00* Test Item Value Reference Range Interpretation Comments Urine Bacteria (test code = 72534-1) MODERATE NONE H [facility] AustinUrine Epithelial Jrgyh3375-14-57 18:19:00 * Test Item Value Reference Range Interpretation Comments Urine Epithelial Cells (test code = 97335-7) FEW NONE [facility] AustinUrine Hyaline Xedmy9976-88-64 18:19:00* Test Item Value Reference Range Interpretation Comments Urine Hyaline Casts (test code = 60230-0) 0-1 0-1 [facility] Hyaline Jyefy1069-37-49 18:19:00* Test Item Value Reference Range Interpretation Comments Urine Hyaline Casts (test code = 50318-0) 0-1 0-1 [facility] AustinUrine Hyaline Qikjw7477-14-92 18:19:00* Test Item Value Reference Range Interpretation Comments Urine Hyaline Casts (test code = 06416-4) 0-1 0-1 [facility] AustinUrine Hyaline Rsivn7201-35-81 18:19:00* Test Item Value Reference Range Interpretation Comments Urine Hyaline Casts (test code = 02755-0) 0-1 0-1 [facility] AustinU[facility] Hyaline Nojtj4305-15-29 18:19:00* Test Item Value Reference Range Interpretation Comments Urine Hyaline Casts (test code = 27260-1) 0-1 0-1 [facility] AustinUrine Hyaline Tmvsr9184-84-99 18:19:00* Test Item Value Reference Range Interpretation Comments Urine Hyaline Casts (test code = 68849-0) 0-1 0-1 [facility] AustinUrine Khdtl4043-02-26 18:03:00* Test Item Value Reference Range Interpretation Comments Urine Color (test code = 5778-6) YELLOW YELLOW [facility] AustinUrine Hpewqwj5966-03-15 18:03:00* Test Item Value Reference Range Interpretation Comments Urine Clarity (test code = 62265-9) CLEAR CLEAR [facility] AustinUrine Specific Wmupkqx3315-71-84 18:03:00 * Test Item Value Reference Range Interpretation Comments Urine Specific [place] (test code = 5811-5) 1.010 1.010-1.02 5 [facility] AustinUrine lA8729-94-72 18:03:00* Test Item Value Reference Range Interpretation Comments Urine pH (test code = 08750-5) 6 5-7 [facility] AustinUrine Leukocyte Wqbiacte8972-72-75 18:03:00* Test Item Value Reference Range Interpretation Comments Urine Leukocyte Esterase (test code = 29625-6) NEGATIVE NEGATIV E [facility] Susgwru1405-97-74 18:03:00* Test Item Value Reference Range Interpretation Comments Urine Nitrite (test code = 31886-3) NEGATIVE NEGATIVE [facility] Eddmgef3842-44-76 18:03:00* Test Item Value Reference Range Interpretation Comments Urine Protein (test code = 38999-4) NEGATIVE NEGATIVE [facility] AustinUrine Glucose (UA)2019-04-23 18:03:00* Test Item Value Reference Range Interpretation Comments Urine Glucose (UA) (test code = 02339-4) NEGATIVE NEGATIVE [facility] AustinUrine Yeyrobj9618-36-68 18:03:00* Test Item Value Reference Range Interpretation Comments Urine Ketones (test code = 12906-3) NEGATIVE NEGATIVE [facility] AustinUrine Mvpjxmcvkufu7614-61-35 18:03:00* Test Item Value Reference Range Interpretation Comments Urine Urobilinogen (test code = 16948-1) 0.2 0.2-1 [facility] AustinUrine Nworqaxex9935-27-50 18:03:00* Test Item Value Reference Range Interpretation Comments Urine Bilirubin (test code = 1977-8) NEGATIVE NEGATIVE [facility] Fwvrr3061-59-93 18:03:00* Test Item Value Reference Range Interpretation Comments Urine Blood (test code = 07332-0) NEGATIVE NEGATIVE [facility] T-SPINE W/O MWMMPKFC4920-32-68 16:27:00 Name: STEVE BENEDICT [facility] : 1945 Age/S: 73 / M [address] [address] [facility] Unit #: [id number] Loc: [place] [address] Phys: Adam Hawkins MD Acct: [id number] Dis Date: Status: REG ER PHONE #: [phone] Exam Date: 04/03/2019 1530 FAX #: [phone] Reason: pain, fall EXAMS: CPT CODE: [id number] CT T-SPINE W/O CONTRAST 05109 HISTORY: pain, fall TECHNIQUE: CT of the [...] UNI 2+V RT 2019-04-03 15:52:00 Name: STEVE BENDEICT Imaging [facility] : 1945 Age/S:73 /M [address] [place] [address] Unit#:[id number] Loc: [place] [address] Phys: Adam Hawkins MD Dis Date: PHONE #: [phone] Status: REG ER FAX #: [phone] Exam Date: 04/03/2019 Reason: pain, fall EXAMS: CPT CODE: [id number] XR HIP W/PEL UNI 2+V RT 00879 HISTORY: pain, fall TECHNIQUE: Single frontal view [...] Technologist: Maria Elena Mejia Trnscrpt Data: 04/03/2019 (2302) t.SDR.PB10 Orig Print D/T: S: 04/03/2019 (2731) PAGE 1 Signed Report - XR ANKLE 3 + V LV4982-05-35 15:39:00 Name: STEVE BENEDICT Imaging [facility] : 1945 Age/S:73 /M [address] [address] [facility] Unit#:[id number] Loc: [place] [address] Phys: Adam Hawkins MD Dis Date: PHONE #: [phone] Status: REG ER FAX #: [phone] Exam Date: 04/03/2019 Re ason: pain, fall EXAMS: CPT CODE: [id number] XR ANKLE 3 + V RT [address] HISTORY: pain, fall TE CHNIQUE: Frontal, oblique, [...] MD Technologist: Anastasia Mejia Trnscrpt Data: 04/03/2019 (3788) t.DENZEL R.PB10 Orig Print D/T: S: 04/03/2019 (0430) PAGE 1 Signed Report REMOVAL TUNNEDLED CV KVBE9610-24-01 14:30:[address] [address] Patient Name: STEVE BENEDICT MR #: [id number] : 1945 Age/Sex: 73/M Req #: [id number] Adm Physician: ROSALIE SHORT MD Ordered by: Samara Das PAYROLL CLERK Report #: [id number] Location: MED/SURG3 Room/Bed: [facility] Procedure: [id number] I R/REMOVAL TUNNEDLED CV CATH Exam Date: Exam Time: REPORT STATUS: Signed Date and T cheri: 02/15/2019 Procedure: Removal of tunneled central venous catheter paper guillotine operator: Dr. Lopez Pre-operative diagnosis: Tunneled central [...] po sition on the fluoroscopic table. A scouts image was obtained, showing stable p osition [...] 1433 COPY TO: SAMARA RUBIO NP IR RKOVWRM5497-54-17 14:30:[address] [address] Patient Name: STEVE BENEDICT MR #: [id number] : 1945 Age/Sex: 73/M Req #: [id number] Adm Physician: ROSALIE SHORT MD Ordered by: Samara Das NP Report #: [id number] Location: MED/SURG3 Room/Bed: [facility] Procedure: [id number] D X/IR CONSULT Exam Date: Exam Time: REPORT STATUS: Signed Date and Time: 02/15/2019 Procedure: Removal of tunneled central venous catheter paper guillotine operator: Dr. Lopez Pre-operative diagnosis: Tunneled central [...] position on the f luoroscopic table. A scouts image was obtained, showing stable position of the right internal jugular tunneled low flow central venous catheter with the tip projecting over the superior cavoatrial junction. The right upper chest a nd existing catheter were then prepped and draped in the standard sterile [facility] ion. 1% lidocaine was infiltrated [...] 1433 COPY TO: SAMARA DAS NP Bedside Oyupifh5545-12-76 11:43:00* Test Item Value Reference Range Interpretation Comments Bedside Glucose (test code = 59928-6) 126 70-120 H Meter ID: [id number] [facility] AustinB-Type Natriuretic Uefhkwh0085-23-54 07:04:00* Test Item Value Reference Range Interpretation Comments B-Type Natriuretic Peptide (test code = 21186-7) 91.6 0-100 [facility] AustinActivated Partial Thromboplast Time 2019-02-15 07:01:00* Test Item Value Reference Range Interpretation Comments Activated Partial Thromboplast Time (test code = 93568-5) 38.9 23.8-35.5 H [facility] AustinProthrombin Xuaz8033-27-11 07:00:00* Test Item Value Reference Range Interpretation Comments Prothrombin Time (test code = 5902-2) 13.4 11.9-14.5 [facility] AustinProthromb Time International Ratio 2019-02-15 07:00:00* Test Item [...] [facility]hamodium Gxtae7913-72-37 06:47:00* Test Item Value Reference Range Interpretation Comments Sodium Level (test code = 2951-2) 139 136-145 [facility] AustinPotassium Resvv6882-00-85 06:47:00* Test Item Value Reference Range Interpretation Comments Potassium Level (test code = 2823-3) 4.7 3.5-5.1 [facility] AustinChloride Grlzq3869-39-27 06:47:00* Test Item Value Reference Range Interpretation Comments Chloride Level (test code = 2075-0) 84 98-107 L [facility] AustinCarbon Dioxide Kelyj7317-93-33 06:47:00* Test Item Value Reference Range Interpretation Comments Carbon Dioxide Level (test code = 2028-9) 42 22-29 HH Results repeated and called to KURT CARPENTER RN at 0647 on 02/15/19 by Roula Rivera. Read back and verified.[facility] AustinAnion Gap 2019-02-15 06:47:00* Test Item Value Reference Range Interpretation Comments Anion Gap (test code = 49193-0) 17.7 8-16 H [facility] AustinBlood Urea Twnplmrg2499-71-72 06:47:00* Test Item Value Reference Range Interpretation Comments Blood Urea Nitrogen (test code = 3094-0) 68 7-26 H [facility] AustinCreatinine2019-04-22 06:47:00* Test Item Value Reference Range Interpretation Comments Creatinine (test code = 2160-0) 2.16 0.72-1.25 H [facility] AustinBUN/Creatinine Jkjpq6987-58-73 06:47:00* Test Item Value Reference Range Interpretation Comments BUN/Creatinine Ratio (test code = 3097-3) 31 6-25 H [facility] AustinEstimat Glomerular Filtration Rate 2019-02-15 06:47:00* Test Item Value Reference Range Interpretation Comments Estimat Glomerular Filtration Rate (test code = 567021464) 30 >60 L Ranges were taken from the National Kidney Disease Education Program and the [facility] [employer] literature.Reference ranges:60 or greater: Rbmxei32-18 ( for 3 consecutive months): Chronic kidney disease 15 or less: Kidney failureAscension Seton Medical Center AustinGlucose Qwhim4159-52-38 06:47:00* Test Item Value Reference Range Interpretation Comments Glucose Level (test code = ZBQ6986) 140 74-118 H [facility] AustinCalcium Fxbea3432-54-24 06:47:00* Test Item Value Reference Range Interpretation Comments Calcium Level (test code = 46393-1) 10.4 8.4-10.2 H [facility] AustinMagnesium Buibf8114-93-65 06:47:00* Test Item Value Reference Range Interpretation Comments Magnesium Level (test code = 49755-7) 3.3 1.3-2.1 H [facility] AustinWhite Blood Zgleh5765-62-82 06:30:00* Test Item Value Reference Range Interpretation Comments White Blood Count (test code = 6690-2) 8.88 4.8-10.8 [facility] AustinRed Blood Xrwqk0751-30-05 06:30:00* Test Item Value Reference Range Interpretation Comments Red Blood Count (test code = 789-8) 6.03 4.3-5.7 H [facility] AustinHemoglobin2019-04-22 06:30:00* Test Item Value Reference Range Interpretation Comments Hemoglobin (test code = 49027-3) 16.4 14.0-18.0 [facility] AustinHematocrit2019-04-22 06:30:00* Test Item Value Reference Range Interpretation Comments Hematocrit (test code = 4544-3) 54.5 38.2-49.6 H [facility] AustinMean Corpuscular Qhybln9084-66-52 06:30:00* Test Item Value Reference Range Interpretation Comments Mean Corpuscular Volume (test code = 787-2) 90.4 81-99 [facility] AustinMean Corpuscular Ziezscnqnx9543-04-05 06:30:00* Test Item Value Reference Range Interpretation Comments Mean Corpuscular Hemoglobin (test code = 785-6) 27.2 28-32 L [facility] AustinMean Corpuscular Hemoglobin Concent 2019-02-15 06:30:00* Test Item Value Reference Range Interpretation Comments Mean Corpuscular Hemoglobin Concent (test code = 786-4) 30.1 31-35 L [facility] AustinRed Cell Distribution Omoli3353-58-26 06:30:00* Test Item Value Reference Range Interpretation Comments Red Cell Distribution Width (test code = 34363-3) 16.2 11.7 -14.4 H [facility] AustinPlatelet Porcy5939-76-63 06:30:00* Test Item Value Reference Range Interpretation Comments Platelet Count (test code = 777-3) 293 140-360 [facility] AustinNeutrophils (%) (Auto)2019-02-15 06:30:00 * Test Item Value Reference Range Interpretation Comments Neutrophils (%) (Auto) (test code = 69122-3) 65.2 38.7-80.0 [facility] AustinLymphocytes (%) (Auto)2019-02-15 06:30:00 * Test Item Value Reference Range Interpretation Comments Lymphocytes (%) (Auto) (test code = 736-9) 19.8 18.0-39.1 [facility] AustinMonocytes (%) (Auto)2019-02-15 06:30:00* Test Item Value Reference Range Interpretation Comments Monocytes (%) (Auto) (test code = 5905-5) 11.4 4.4-11.3 H [facility] AustinEosinophils (%) (Auto)2019-02-15 06:30:00 * Test Item Value Reference Range Interpretation Comments Eosinophils (%) (Auto) (test code = 713-8) 2.1 0.0-6.0 [facility] AustinBasophils (%) (Auto)2019-02-15 06:30:00* Test Item Value Reference Range Interpretation Comments Basophils (%) (Auto) (test code = 706-2) 1.0 0.0-1.0 [facility] AustinIM GRANULOCYTES %2019-02-15 06:30:00* Test Item Value Reference Range Interpretation Comments IM GRANULOCYTES % (test code = IM GRANULOCYTES %) 0.5 0.0- 1.0 [facility] AustinNeutrophils # (Auto)2019-02-15 06:30:00* Test Item Value Reference Range Interpretation Comments Neutrophils # (Auto) (test code = 751-8) 5.8 2.1-6.9 [facility] AustinLymphocytes # (Auto)2019-02-15 06:30:00* Test Item Value Reference Range Interpretation Comments Lymphocytes # (Auto) (test code = 82179-4) 1.8 1.0-3.2 [facility] AustinMonocytes # (Auto)2019-02-15 06:30:00* Test Item Value Reference Range Interpretation Comments Monocytes # (Auto) (test code = 742-7) 1.0 0.2-0.8 H [facility] AustinEosinophils # (Auto)2019-02-15 06:30:00* Test Item Value Reference Range Interpretation Comments Eosinophils # (Auto) (test code = 711-2) 0.2 0.0-0.4 [facility] AustinBasophils # (Auto)2019-02-15 06:30:00* Test Item Value Reference Range Interpretation Comments Basophils # (Auto) (test code = 704-7) 0.1 0.0-0.1 [facility] AustinAbsolute Immature Granulocyte (auto 2019-02-15 06:30:00* Test Item Value Reference Range Interpretation Comments Absolute Immature Granulocyte (auto (bharat t code = Absolute Immature Granulocyte (auto) 0.04 0-0.1 [facility] AustinMODIFIED BA. YDTVSLT2558-36-56 08:43:00 [place] [address] Patient Name: STEVE BENEDICT MR #: [id number] : 1945 Age/Sex: 73/M Req #: [id number] Adm Physician: ROSALIE SHORT MD Ordered by: ROSALIE SHOTR MD Report #: [id number] Location: MED/SURG3 Room/Bed: [facility] Procedure: [id number] DX /MODIFIED BA. SWALLOW Exam Date: 02/12/19 Exam Time: 0653 REPORT STATUS: Signed EXAM: Modified barium swallow with Speech Pathologist INDICATION: freq PNA [id number] Y COMPARISON: None available. RADIATION DOSE: [...] COPY TO: VON SHORT MD Hemoglobin A1c Tidzjir0386-81-31 07:54:00* Test Item Value Reference Range Interpretation Comments Hemoglobin A1c Percent (test code = Hemoglobin A1c Percent) 6.2 4.0-7.0 [facility] Lrggwnzxp5578-73-86 07:03:00* Test Item Value Reference Range Interpretation Comments Free Thyroxine (test code = 3024-7) 0.92 0.9-1.8 [facility] AustinThyroid Stimulating Hormone (TSH) 2019-02-12 07:03:00* Test Item Value Reference Range Interpretation Comments Thyroid Stimulating Hormone (TSH) (test code = 53801-0) 1.875 0.350-4.940 [facility] AustinFr Gescdcknh0698-10-49 07:03:00* Test Item Value Reference Range Interpretation Comments Free Thyroxine (test code = 3024-7) 0.92 0.9-1.8 [facility] AustinThyroid Stimulating Hormone (TSH) 2019-02-12 07:03:00* Test Item Value Reference Range Interpretation Comments Thyroid Stimulating Hormone (TSH) (test code = 29948-2) 1.875 0.350-4.940 [facility] AustinFree Gnzmyhmwy5091-64-01 07:03:00* Test Item Value Reference Range Interpretation Comments Free Thyroxine (test code = 3024-7) 0.92 0.9-1.8 [facility] AustinThyroid Stimulating Hormone (TSH) 2019-02-12 07:03:00* Test Item Value Reference Range Interpretation Comments Thyroid Stimulating Hormone (TSH) (test code = 38220-0) 1.875 0.350-4.940 [facility] AustinPhosphorus Hueqz4653-77-07 06:43:00* Test Item Value Reference Range Interpretation Comments Phosphorus Level (test code = MKZ8988) 3.5 2.3-4.7 [facility] AustinPhosphorus Tlqyx5959-27-29 06:43:00* Test Item Value Reference Range Interpretation Comments Phosphorus Level (test code = AUB5074) 3.5 2.3-4.7 [facility] AustinPhosphorus Rltzj5433-96-82 06:43:00* Test Item Value Reference Range Interpretation Comments Phosphorus Level (test code = GSI8702) 3.5 2.3-4.7 [facility] AustinCreatine Igfusy0623-38-55 13:44:00* Test Item Value Reference Range Interpretation Comments Creatine Kinase (test code = 2157-6) 127 30-200 [facility] AustinCreatine Kinase CO6862-62-78 13:44:00* Test Item Value Reference Range Interpretation Comments Creatine Kinase MB (test code = 96522-2) 2.50 0-5.0 [facility] AustinTroponin Y2876-61-44 13:44:00* Test Item Value Reference Range Interpretation Comments Troponin I (test code = AMI1786) 0.017 0-0.300 [facility] AustinTotal Tzqvxytbn1449-31-80 05:09:00* Test Item Value Reference Range Interpretation Comments Total Bilirubin (test code = 1975-2) 0.6 0.2-1.2 [facility] AustinAspartate Amino Transf (AST/SGOT) 2019-02-09 05:09:00* Test Item Value Reference Range Interpretation Comments Aspartate Amino Transf (AST/SGOT) (test code = Aspartate Amino Transf (AST/SGOT)) 15 5-34 [facility] AustinAlanine Aminotransferase (ALT/SGPT) 2019-02-09 05:09:00* Test Item Value Reference Range Interpretation Comments Alanine Aminotransferase (ALT/SGPT) (test code = 1742-6) 10 0-55 [facility] AustinTotal Qwumzgx6948-34-39 05:09:00* Test Item Value Reference Range Interpretation Comments Total Protein (test code = 2885-2) 6.7 6.5-8.1 [facility] AustinAlbumin2019-04-16 05:09:00* Test Item Value Reference Range Interpretation Comments Albumin (test code = 1751-7) 3.4 3.5-5.0 L [facility] AustinGlobulin2019-04-16 05:09:00* Test Item Value Reference Range Interpretation Comments Globulin (test code = 31395-2) 3.3 2.3-3.5 [facility] AustinAlbumin/Globulin Stzrt3365-66-18 05:09:00 * Test Item Value Reference Range Interpretation Comments Albumin/Globulin Ratio (test code = 1759-0) 1.0 0.8-2.0 [facility] AustinAlkaline Hsqzlcyycoh9969-34-20 05:09:00* Test Item Value Reference Range Interpretation Comments Alkaline Phosphatase (test code = 6768-6) 78 40-150 [facility] AustinCHEST SINGLE (NOT PORTABLE)2019-02-08 15:46:00 [facility] [address] [place] [address] Patient Name: STEVE BENEDICT MR #: [id number] : 1945 Age/Sex: 73/M Req #: [id number] Adm Physician: Ordered by: VENITA PRADO MD Report #: [id number] Location: ER Room/Bed: Procedure: [id number] D X/CHEST SINGLE (NOT PORTABLE) Exam Date: [...] reflect atelectasis or early pneumonia in the [facility] clinical setting. Signed by: Dr. Jose Manuel Person MD on 02/08/2019 3:51 PM Dictated By: JOSE MANUEL PERSON MD 1551 COPY TO: ZELALEM PRADO MD Urine ROI5002-30-22 14:47:00* Test Item Value Reference Range Interpretation Comments Urine WBC (test code = 5821-4) NONE 0-5 [facility] AustinUrine CKI3031-61-82 14:47:00* Test Item Value Reference Range Interpretation Comments Urine RBC (test code = 55074-4) NONE 0-5 [facility] AustinUrine Atkcqozs2655-24-69 14:47:00* Test Item Value Reference Range Interpretation Comments Urine Bacteria (test code = 69453-6) NONE NONE [facility] AustinUrine Epithelial Jazkw1630-80-60 14:47:00 * Test Item Value Reference Range Interpretation Comments Urine Epithelial Cells (test code = 62639-0) RARE NONE [facility] AustinUrine Sewky7920-95-60 14:38:00* Test Item Value Reference Range Interpretation Comments Urine Color (test code = 5778-6) YELLOW YELLOW [facility] AustinUrine Rjinsjt3192-43-81 14:38:00* Test Item Value Reference Range Interpretation Comments Urine Clarity (test code = 68764-4) CLEAR CLEAR [facility] Specific Mtevxbi6753-98-23 14:38:00 * Test Item Value Reference Range Interpretation Comments Urine Specific [place] (test code = 5811-5) 1.010 1.010-1.02 5 [facility] AustinUrine sA7647-65-86 14:38:00* Test Item Value Reference Range Interpretation Comments Urine pH (test code = 14988-6) 7 5-7 [facility] Leukocyte Bzhafdzh6099-22-37 14:38:00* Test Item Value Reference Range Interpretation Comments Urine Leukocyte Esterase (test code = 5799-2) NEGATIVE NEGATIVE [facility] Gfrbbjc5553-68-50 14:38:00* Test Item Value Reference Range Interpretation Comments Urine Nitrite (test code = 39671-2) NEGATIVE NEGATIVE [facility] Hqncxqr3591-51-80 14:38:00* Test Item Value Reference Range Interpretation Comments Urine Protein (test code = 5804-0) NEGATIVE NEGATIVE [facility] Glucose (UA)2019-02-08 14:38:00* Test Item Value Reference Range Interpretation Comments Urine Glucose (UA) (test code = 2349-9) NEGATIVE NEGATIVE [facility] Agznale1385-59-60 14:38:00* Test Item Value Reference Range Interpretation Comments Urine Ketones (test code = 24997-4) NEGATIVE NEGATIVE [facility] Sssigeevrlwz2667-26-72 14:38:00* Test Item Value Reference Range Interpretation Comments Urine Urobilinogen (test code = 70676-8) 0.2 0.2-1 [facility] Rljkeelwg1559-08-90 14:38:00* Test Item Value Reference Range Interpretation Comments Urine Bilirubin (test code = 1978-6) NEGATIVE NEGATIVE [facility] Igvzk2109-99-25 14:38:00* Test Item Value Reference Range Interpretation Comments Urine Blood (test code = 10707-1) NEGATIVE NEGATIVE [facility] Zbcbulf7152-55-07 05:29:00* Test Item Value Reference Range Interpretation Comments Urine Culture (test code = 630-4) Organism: GIOVANNI ALBICANS [facility] Wefnyix6288-78-92 05:29:00* Test Item Value Reference Range Interpretation Comments Urine Culture (test code = 630-4) Organism: GIOVANNI ALBICANS [facility] Pibxwqy1436-32-04 05:29:00* Test Item Value Reference Range Interpretation Comments Urine Culture (test code = 630-4) Organism: GIOVANNI ALBICANS [facility] Kwurkvb9936-01-23 05:29:00* Test Item Value Reference Range Interpretation Comments Urine Culture (test code = 630-4) Organism: GIOVANNI ALBICANS [facility] Miozfub1749-99-32 05:29:00* Test Item Value Reference Range Interpretation Comments Urine Culture (test code = 630-4) No Result Data Provided [facility] Pdsunwr6382-54-44 05:29:00* Test Item Value Reference Range Interpretation Comments Urine Culture (test code = 630-4) No [facility] Ixwzqap8671-91-10 14:41:00* Test Item Value Reference Range Interpretation Comments Blood Culture (test code = 77100794) NO GROWTH AFTER 5 DAYS, FINAL REPORT [facility] AustinBedside Tspbajm1234-70-43 12:09:00* Test Item Value Reference Range Interpretation Comments Bedside Glucose (test code = 04286-5) 151 70-120 H Meter ID: [id number] [facility] Culture 2019-01-09 10:40:00* Test Item Value Reference Range Interpretation Comments Urine Culture (test code = 630-4) Organism: YEAST SPECIES [facility] AustinProcalcitonin2019-03-16 06:48:00* Test Item Value Reference Range Interpretation Comments Procalcitonin (test code = 776614084) 0.07 0.00-0.08 A procalcitonin (PCT) level above [...] any concentrations <2 ng/mL are obtained.Performed at: [facility] [address] [id number] Director: Tito Rodriguez MD, Phone: [phone] Seton Medical Center AustinProcalcitonin2019-03-16 06:48:00* Test Item Value Reference Range Interpretation Comments Procalcitonin (test code = 344174519) 0.07 0.00-0.08 A procalcitonin (PCT) level above [...] any concentrations <2 ng/mL are obtained.Performed at: [address] [id number] Director: Tito Rodriguez MD, Phone: [phone] Seton Medical Center AustinProcalcitonin2019-03-16 06:48:00* Test Item Value Reference Range Interpretation Comments Procalcitonin (test code = 282408018) 0.07 0.00-0.08 A procalcitonin (PCT) level above [...] any concentrations <2 ng/mL are obtained.Performed at: [address] [id number] Director: Tito Rodriguez MD, Phone: [phone] Seton Medical Center AustinProcalcitonin2019-03-16 06:48:00* Test Item Value Reference Range Interpretation Comments Procalcitonin (test code = 444876264) 0.07 0.00-0.08 A procalcitonin (PCT) level above [...] any concentrations <2 ng/mL are obtained.Performed at: [facility] [address] [id number] Director: Tito Rodriguez MD, Phone: [phone] Seton Medical Center AustinProcalcitonin2019-03-16 06:48:00* Test Item Value Reference Range Interpretation Comments Procalcitonin (test code = 191562098) 0.07 0.00-0.08 A procalcitonin (PCT) level above [...] any concentrations <2 ng/mL are obtained.Performed at: [facility] [address] [id number] Director: Tito Rodriguez MD, Phone: [phone] Seton Medical Center AustinProcalcitonin2019-03-16 06:48:00* Test Item Value Reference Range Interpretation Comments Procalcitonin (test code = 267644705) 0.07 0.00-0.08 A procalcitonin (PCT) level above [...] any concentrations <2 ng/mL are obtained.Performed at: [employer] [id number] Director: Tito Rodriguez MD, Phone: [phone] Seton Medical Center AustinProcalcitonin2019-03-16 06:48:00* Test Item Value Reference Range Interpretation Comments Procalcitonin (test code = 438888135) 0.07 0.00-0.08 A procalcitonin (PCT) level above [...] any concentrations <2 ng/mL are obtained.Performed at: [employer] [id number] Director: Tito Rodriguez MD, Phone: [phone] Seton Medical Center AustinB-Type Natriuretic Pwjcxfo2175-29-89 05:08:00* Test Item Value Reference Range Interpretation Comments B-Type Natriuretic Peptide (test code = 85356-1) 381.1 0-100 [facility] Zdmut0637-10-70 04:31:00* Test Item Value Reference Range Interpretation Comments Sodium Level (test code = 2951-2) 140 136-145 [facility] AustinPotassium Atmwm9211-95-24 04:31:00* Test Item Value Reference Range Interpretation Comments Potassium Level (test code = 2823-3) 4.4 3.5-5.1 [facility] AustinChloride Qadhn9242-40-91 04:31:00* Test Item Value Reference Range Interpretation Comments Chloride Level (test code = 2075-0) 91 98-107 L [facility] AustinCarbon Dioxide Lshpq3335-52-42 04:31:00* Test Item Value Reference Range Interpretation Comments Carbon Dioxide Level (test code = 2028-9) 40 22-29 H [facility] AustinAnion Yew8805-35-10 04:31:00* Test Item Value Reference Range Interpretation Comments Anion Gap (test code = 15841-4) 13.4 8-16 [facility] AustinBlood Urea Xrcekqhu8828-14-43 04:31:00* Test Item Value Reference Range Interpretation Comments Blood Urea Nitrogen (test code = 3094-0) 33 7-26 H [facility] AustinCreatinine2019-03-16 04:31:00* Test Item Value Reference Range Interpretation Comments Creatinine (test code = 2160-0) 1.41 0.72-1.25 H [facility] AustinBUN/Creatinine Eeofz4487-05-34 04:31:00* Test Item Value Reference Range Interpretation Comments BUN/Creatinine Ratio (test code = 3097-3) 23 6-25 [facility] AustinEstimat Glomerular Filtration Rate 2019-01-09 04:31:00* Test Item Value Reference Range Interpretation Comments Estimat Glomerular Filtration Rate (test code = 221739086) 49 >60 L Ranges were taken from the National Kidney Disease Education Program and the [facility] Kidney Foundation literature.Reference ranges:60 or greater: Zfgxoi69-91 ( for 3 consecutive months): Chronic kidney disease 15 or less: Kidney failureAscension Seton Medical Center AustinGlucose Sspfx0454-27-22 04:31:00* Test Item Value Reference Range Interpretation Comments Glucose Level (test code = JMA2672) 154 74-118 H [facility] AustinCalcium Wjuab8345-88-83 04:31:00* Test Item Value Reference Range Interpretation Comments Calcium Level (test code = 26108-0) 8.8 8.4-10.2 [facility] AustinMagnesium Eumdf1115-66-21 04:31:00* Test Item Value Reference Range Interpretation Comments Magnesium Level (test code = 65149-0) 2.5 1.3-2.1 H [facility] AustinWhite Blood Efxmz3208-40-49 04:08:00* Test Item Value Reference Range Interpretation Comments White Blood Count (test code = 6690-2) 8.53 4.8-10.8 [facility] AustinRed Blood Ayiwk5913-40-58 04:08:00* Test Item Value Reference Range Interpretation Comments Red Blood Count (test code = 789-8) 6.08 4.3-5.7 H [facility] AustinHemoglobin2019-03-16 04:08:00* Test Item Value Reference Range Interpretation Comments Hemoglobin (test code = 24371-9) 16.4 14.0-18.0 [facility] AustinHematocrit2019-03-16 04:08:00* Test Item Value Reference Range Interpretation Comments Hematocrit (test code = 4544-3) 54.7 38.2-49.6 H [facility] AustinMean Corpuscular Wmwegx2317-97-10 04:08:00* Test Item Value Reference Range Interpretation Comments Mean Corpuscular Volume (test code = 787-2) 90.0 81-99 [facility] AustinMean Corpuscular Msogyxuwed9057-13-56 04:08:00* Test Item Value Reference Range Interpretation Comments Mean Corpuscular Hemoglobin (test code = 785-6) 27.0 28-32 L [facility] AustinMean Corpuscular Hemoglobin Concent 2019-01-09 04:08:00* Test Item Value Reference Range Interpretation Comments Mean Corpuscular Hemoglobin Concent (test code = 786-4) 30.0 31-35 L [facility] AustinRed Cell Distribution Qsqhu9209-48-75 04:08:00* Test Item Value Reference Range Interpretation Comments Red Cell Distribution Width (test code = 20347-5) 17.9 11.7 -14.4 H [facility] AustinPlatelet Ovutb6826-36-39 04:08:00* Test Item Value Reference Range Interpretation Comments Platelet Count (test code = 777-3) 220 140-360 [facility] AustinNeutrophils (%) (Auto)2019-01-09 04:08:00 * Test Item Value Reference Range Interpretation Comments Neutrophils (%) (Auto) (test code = 62303-8) 87.2 38.7-80.0 H [facility] AustinLymphocytes (%) (Auto)2019-01-09 04:08:00 * Test Item Value Reference Range Interpretation Comments Lymphocytes (%) (Auto) (test code = 736-9) 7.0 18.0-39.1 L [facility] AustinMonocytes (%) (Auto)2019-01-09 04:08:00* Test Item Value Reference Range Interpretation Comments Monocytes (%) (Auto) (test code = 5905-5) 4.6 4.4-11.3 [facility] AustinEosinophils (%) (Auto)2019-01-09 04:08:00 * Test Item Value Reference Range Interpretation Comments Eosinophils (%) (Auto) (test code = 713-8) 0.0 0.0-6.0 [facility] AustinBasophils (%) (Auto)2019-01-09 04:08:00* Test Item Value Reference Range Interpretation Comments Basophils (%) (Auto) (test code = 706-2) 0.1 0.0-1.0 [facility] AustinIM GRANULOCYTES %2019-01-09 04:08:00* Test Item Value Reference Range Interpretation Comments IM GRANULOCYTES % (test code = IM GRANULOCYTES %) 1.1 0.0- 1.0 H [facility] AustinNeutrophils # (Auto)2019-01-09 04:08:00* Test Item Value Reference Range Interpretation Comments Neutrophils # (Auto) (test code = 751-8) 7.4 2.1-6.9 H [facility] AustinLymphocytes # (Auto)2019-01-09 04:08:00* Test Item Value Reference Range Interpretation Comments Lymphocytes # (Auto) (test code = 71842-1) 0.6 1.0-3.2 L [facility] AustinMonocytes # (Auto)2019-01-09 04:08:00* Test Item Value Reference Range Interpretation Comments Monocytes # (Auto) (test code = 742-7) 0.4 0.2-0.8 [facility] AustinEosinophils # (Auto)2019-01-09 04:08:00* Test Item Value Reference Range Interpretation Comments Eosinophils # (Auto) (test code = 711-2) 0.0 0.0-0.4 [facility] AustinBasophils # (Auto)2019-01-09 04:08:00* Test Item Value Reference Range Interpretation Comments Basophils # (Auto) (test code = 704-7) 0.0 0.0-0.1 [facility] AustinAbsolute Immature Granulocyte (auto 2019-01-09 04:08:00* Test Item Value Reference Range Interpretation Comments Absolute Immature Granulocyte (auto (bharat t code = Absolute Immature Granulocyte (auto) 0.09 0-0.1 [facility] AustinBlood Bwiwgtz3481-48-26 14:39:00* Test Item Value Reference Range Interpretation Comments Blood Culture (test code = 82229096) NO GROWTH AFTER 72 HOURS [facility] AustinDifferential Total Cells Counted 2019-01-08 04:37:00* Test Item Value Reference Range Interpretation Comments Differential Total Cells Counted (test code = Differen tial Total Cells Counted) 100 [facility] AustinNeutrophils % (Manual)2019-01-08 04:37:00 * Test Item Value Reference Range Interpretation Comments Neutrophils % (Manual) (test code = 77716-8) 91 40-74 H [facility] AustinLymphocytes % (Manual)2019-01-08 04:37:00 * Test Item Value Reference Range Interpretation Comments Lymphocytes % (Manual) (test code = 737-7) 6 19-48 L [facility] AustinMonocytes % (Manual)2019-01-08 04:37:00* Test Item Value Reference Range Interpretation Comments Monocytes % (Manual) (test code = 744-3) 3 3.4-9.0 L [facility] AustinPlatelet Pnapetmb2929-26-94 04:37:00* Test Item Value Reference Range Interpretation Comments Platelet Estimate (test code = 84557-7) ADEQUATE [facility] AustinPlatelet Morphology Kfuqouk4098-88-52 04:37:00* Test Item Value Reference Range Interpretation Comments Platelet Morphology Comment (test code = 83738-8) NORMAL [facility] AustinRed Cell Morphology Fkapbwi1366-10-87 04:37:00* Test Item Value Reference Range Interpretation Comments Red Cell Morphology Comment (test code = 6742-1) NORMAL [facility] AustinDifferential Total Cells Counted 2019-01-08 04:37:00* Test Item Value Reference Range Interpretation Comments Differential Total Cells Counted (test code = Differsean tial Total Cells Counted) 100 [facility] AustinNeutrophils % (Manual)2019-01-08 04:37:00 * Test Item Value Reference Range Interpretation Comments Neutrophils % (Manual) (test code = 91488-8) 91 40-74 H [facility] AustinLymphocytes % (Manual)2019-01-08 04:37:00 * Test Item Value Reference Range Interpretation Comments Lymphocytes % (Manual) (test code = 737-7) 6 19-48 L [facility] AustinMonocytes % (Manual)2019-01-08 04:37:00* Test Item Value Reference Range Interpretation Comments Monocytes % (Manual) (test code = 744-3) 3 3.4-9.0 L [facility] AustinPlatelet Benakgtj6439-66-81 04:37:00* Test Item Value Reference Range Interpretation Comments Platelet Estimate (test code = 78571-9) ADEQUATE [facility] AustinPlatelet Morphology Milabku2271-57-04 04:37:00* Test Item Value Reference Range Interpretation Comments Platelet Morphology Comment (test code = 05166-5) NORMAL [facility] AustinRed Cell Morphology Rnaqxaq1607-94-06 04:37:00* Test Item Value Reference Range Interpretation Comments Red Cell Morphology Comment (test code = 6742-1) NORMAL [facility] AustinDifferential Total Cells Counted 2019-01-08 04:37:00* Test Item Value Reference Range Interpretation Comments Differential Total Cells Counted (test code = Renettasean tial Total Cells Counted) 100 [facility] AustinNeutrophils % (Manual)2019-01-08 04:37:00 * Test Item Value Reference Range Interpretation Comments Neutrophils % (Manual) (test code = 64964-7) 91 40-74 H [facility] AustinLymphocytes % (Manual)2019-01-08 04:37:00 * Test Item Value Reference Range Interpretation Comments Lymphocytes % (Manual) (test code = 737-7) 6 19-48 L [facility] AustinMonocytes % (Manual)2019-01-08 04:37:00* Test Item Value Reference Range Interpretation Comments Monocytes % (Manual) (test code = 744-3) 3 3.4-9.0 L [facility] AustinPlatelet Xvxamioy8300-43-79 04:37:00* Test Item Value Reference Range Interpretation Comments Platelet Estimate (test code = 75919-4) ADEQUATE [facility] AustinPlatelet Morphology Clefwra1776-64-69 04:37:00* Test Item Value Reference Range Interpretation Comments Platelet Morphology Comment (test code = 73126-7) NORMAL [facility] AustinRed Cell Morphology Thrnmsn0656-71-35 04:37:00* Test Item Value Reference Range Interpretation Comments Red Cell Morphology Comment (test code = 6742-1) NORMAL [facility] AustinDifferential Total Cells Counted 2019-01-08 04:37:00* Test Item Value Reference Range Interpretation Comments Differential Total Cells Counted (test code = Differen tial Total Cells Counted) 100 [facility] AustinNeutrophils % (Manual)2019-01-08 04:37:00 * Test Item Value Reference Range Interpretation Comments Neutrophils % (Manual) (test code = 12783-5) 91 40-74 H [facility] AustinLymphocytes % (Manual)2019-01-08 04:37:00 * Test Item Value Reference Range Interpretation Comments Lymphocytes % (Manual) (test code = 737-7) 6 19-48 L [facility] AustinMonocytes % (Manual)2019-01-08 04:37:00* Test Item Value Reference Range Interpretation Comments Monocytes % (Manual) (test code = 744-3) 3 3.4-9.0 L [facility] AustinPlatelet Yefmerkc3417-98-85 04:37:00* Test Item Value Reference Range Interpretation Comments Platelet Estimate (test code = 26780-4) ADEQUATE [facility] AustinPlatelet Morphology Mnlpoua7019-84-62 04:37:00* Test Item Value Reference Range Interpretation Comments Platelet Morphology Comment (test code = 72841-4) NORMAL [facility] AustinRed Cell Morphology Ozwybgs5537-60-86 04:37:00* Test Item Value Reference Range Interpretation Comments Red Cell Morphology Comment (test code = 6742-1) NORMAL [facility] AustinDifferential Total Cells Counted 2019-01-08 04:37:00* Test Item Value Reference Range Interpretation Comments Differential Total Cells Counted (test code = Differen tial Total Cells Counted) 100 [facility] AustinNeutrophils % (Manual)2019-01-08 04:37:00 * Test Item Value Reference Range Interpretation Comments Neutrophils % (Manual) (test code = 92607-4) 91 40-74 H [facility] AustinLymphocytes % (Manual)2019-01-08 04:37:00 * Test Item Value Reference Range Interpretation Comments Lymphocytes % (Manual) (test code = 737-7) 6 19-48 L [facility] AustinMonocytes % (Manual)2019-01-08 04:37:00* Test Item Value Reference Range Interpretation Comments Monocytes % (Manual) (test code = 744-3) 3 3.4-9.0 L [facility] AustinPlatelet Kvsagejk6580-04-25 04:37:00* Test Item Value Reference Range Interpretation Comments Platelet Estimate (test code = 10825-7) ADEQUATE [facility] AustinPlatelet Morphology Yxppwmv8290-00-54 04:37:00* Test Item Value Reference Range Interpretation Comments Platelet Morphology Comment (test code = 26549-3) NORMAL [facility] AustinRed Cell Morphology Nvoefmw8103-93-26 04:37:00* Test Item Value Reference Range Interpretation Comments Red Cell Morphology Comment (test code = 6742-1) NORMAL [facility] AustinDifferential Total Cells Counted 2019-01-08 04:37:00* Test Item Value Reference Range Interpretation Comments Differential Total Cells Counted (test code = Eduardo tial Total Cells Counted) 100 [facility] AustinNeutrophils % (Manual)2019-01-08 04:37:00 * Test Item Value Reference Range Interpretation Comments Neutrophils % (Manual) (test code = 07582-2) 91 40-74 H [facility] AustinLymphocytes % (Manual)2019-01-08 04:37:00 * Test Item Value Reference Range Interpretation Comments Lymphocytes % (Manual) (test code = 737-7) 6 19-48 L [facility] AustinMonocytes % (Manual)2019-01-08 04:37:00* Test Item Value Reference Range Interpretation Comments Monocytes % (Manual) (test code = 744-3) 3 3.4-9.0 L [facility] AustinPlatelet Mpghnjic5158-32-90 04:37:00* Test Item Value Reference Range Interpretation Comments Platelet Estimate (test code = 32855-3) ADEQUATE [facility] AustinPlatelet Morphology Klswlmi3739-86-19 04:37:00* Test Item Value Reference Range Interpretation Comments Platelet Morphology Comment (test code = 75406-2) NORMAL [facility] AustinRed Cell Morphology Oemeuqb8663-27-45 04:37:00* Test Item Value Reference Range Interpretation Comments Red Cell Morphology Comment (test code = 6742-1) NORMAL [facility] AustinDifferential Total Cells Counted 2019-01-08 04:37:00* Test Item Value Reference Range Interpretation Comments Differential Total Cells Counted (test code = Differsean tial Total Cells Counted) 100 [facility] AustinNeutrophils % (Manual)2019-01-08 04:37:00 * Test Item Value Reference Range Interpretation Comments Neutrophils % (Manual) (test code = 64095-1) 91 40-74 H [facility] AustinLymphocytes % (Manual)2019-01-08 04:37:00 * Test Item Value Reference Range Interpretation Comments Lymphocytes % (Manual) (test code = 737-7) 6 19-48 L [facility] AustinMonocytes % (Manual)2019-01-08 04:37:00* Test Item Value Reference Range Interpretation Comments Monocytes % (Manual) (test code = 744-3) 3 3.4-9.0 L [facility] AustinPlatelet Cxtdsrlv3923-11-36 04:37:00* Test Item Value Reference Range Interpretation Comments Platelet Estimate (test code = 78681-7) ADEQUATE [facility] AustinPlatelet Morphology Hhajqgz8012-18-13 04:37:00* Test Item Value Reference Range Interpretation Comments Platelet Morphology Comment (test code = 00793-4) NORMAL [facility] AustinRed Cell Morphology Vhwmwqd5874-09-13 04:37:00* Test Item Value Reference Range Interpretation Comments Red Cell Morphology Comment (test code = 6742-1) NORMAL [facility] AustinUrine LYU3818-81-18 11:55:00* Test Item Value Reference Range Interpretation Comments Urine WBC (test code = 5821-4) 0-5 0-5 [facility] AustinUrine MGM6946-62-06 11:55:00* Test Item Value Reference Range Interpretation Comments Urine RBC (test code = 70271-0) NONE 0-5 [facility] AustinUrine Kfwwhqpe6130-39-07 11:55:00* Test Item Value Reference Range Interpretation Comments Urine Bacteria (test code = 43414-5) NONE NONE [facility] AustinUrine Epithelial Zqzun8030-26-50 11:55:00 * Test Item Value Reference Range Interpretation Comments Urine Epithelial Cells (test code = 39329-7) MODERATE NONE [facility] AustinUrine Transitional Epithelial Cells 2019-01-07 11:55:00* Test Item Value Reference Range Interpretation Comments Urine Transitional Epithelial Cells (test code = 8249-5) RARE NONE [facility] Hyaline Zqiqr0986-90-28 11:55:00* Test Item Value Reference Range Interpretation Comments Urine Hyaline Casts (test code = 80216-1) >15 0-1 H [facility] Transitional Epithelial Cells 2019-01-07 11:55:00* Test Item Value Reference Range Interpretation Comments Urine Transitional Epithelial Cells (test code = 8249-5) RARE NONE [facility] Hyaline Vvhgq8422-37-14 11:55:00* Test Item Value Reference Range Interpretation Comments Urine Hyaline Casts (test code = 67305-5) >15 0-1 H [facility] Transitional Epithelial Cells 2019-01-07 11:55:00* Test Item Value Reference Range Interpretation Comments Urine Transitional Epithelial Cells (test code = 8249-5) RARE NONE [facility] Transitional Epithelial Cells 2019-01-07 11:55:00* Test Item Value Reference Range Interpretation Comments Urine Transitional Epithelial Cells (test code = 8249-5) RARE NONE [facility] Transitional Epithelial Cells 2019-01-07 11:55:00* Test Item Value Reference Range Interpretation Comments Urine Transitional Epithelial Cells (test code = 8249-5) RARE NONE [facility] Transitional Epithelial Cells 2019-01-07 11:55:00* Test Item Value Reference Range Interpretation Comments Urine Transitional Epithelial Cells (test code = 8249-5) RARE NONE [facility] Transitional Epithelial Cells 2019-01-07 11:55:00* Test Item Value Reference Range Interpretation Comments Urine Transitional Epithelial Cells (test code = 8249-5) RARE NONE [facility] AustinUrine Yfsdc9968-75-90 11:47:00* Test Item Value Reference Range Interpretation Comments Urine Color (test code = 5778-6) STRAW YELLOW [facility] AustinUrine Oqpbjkg6817-26-51 11:47:00* Test Item Value Reference Range Interpretation Comments Urine Clarity (test code = 39633-3) CLEAR CLEAR [facility] Specific Inmkowf4643-30-75 11:47:00 * Test Item Value Reference Range Interpretation Comments Urine Specific [place] (test code = 5811-5) 1.010 1.010-1.02 5 [facility] AustinUrine vP8329-07-98 11:47:00* Test Item Value Reference Range Interpretation Comments Urine pH (test code = 05058-0) 6 5-7 [facility] Leukocyte Qqhngfxo1949-92-43 11:47:00* Test Item Value Reference Range Interpretation Comments Urine Leukocyte Esterase (test code = 5799-2) NEGATIVE NEGATIVE [facility] Iuacads9631-90-39 11:47:00* Test Item Value Reference Range Interpretation Comments Urine Nitrite (test code = 37371-0) NEGATIVE NEGATIVE [facility] Kjzuuby8965-64-32 11:47:00* Test Item Value Reference Range Interpretation Comments Urine Protein (test code = 5804-0) NEGATIVE NEGATIVE [facility] Glucose (UA)2019-01-07 11:47:00* Test Item Value Reference Range Interpretation Comments Urine Glucose (UA) (test code = 2349-9) NEGATIVE NEGATIVE [facility] Wnwtgfd2985-24-59 11:47:00* Test Item Value Reference Range Interpretation Comments Urine Ketones (test code = 67791-7) NEGATIVE NEGATIVE [facility] Uetvbretudef4992-51-78 11:47:00* Test Item Value Reference Range Interpretation Comments Urine Urobilinogen (test code = 64063-0) 0.2 0.2-1 [facility] AustinUrine Cvxyokmfn1689-13-25 11:47:00* Test Item Value Reference Range Interpretation Comments Urine Bilirubin (test code = 1978-6) NEGATIVE NEGATIVE [facility] AustinUrine Cjvdo5031-18-44 11:47:00* Test Item Value Reference Range Interpretation Comments Urine Blood (test code = 91340-8) NEGATIVE NEGATIVE [facility] AustinCreatine Kinase RM1166-88-77 15:17:00* Test Item Value Reference Range Interpretation Comments Creatine Kinase MB (test code = 26485-9) 2.50 0-5.0 [facility] AustinTroponin G4000-28-29 15:17:00* Test Item Value Reference Range Interpretation Comments Troponin I (test code = RBY4508) 0.005 0-0.300 [facility] AustinCreatine Lmllhf5305-09-71 15:04:00* Test Item Value Reference Range Interpretation Comments Creatine Kinase (test code = 2157-6) 66 30-200 [facility] AustinUS ABDOMEN BKFFMKBZ0037-36-34 12:01:00 [facility] [address] [place] [address] Patient Name: STEVE BENEDICT MR #: [id number] : 1945 Age/Sex: 73/M Req #: [id number] Adm Physician: ROSALIE SHORT MD Ordered by: Samara Das NP Report #: [id number] Location: MED/SURG Room/Bed: [facility] Procedure: [id number] U S/US ABDOMEN COMPLETE Exam Date: 01/06/19 [...] negative. Common bile duct 0.5 cm, normal. Patino creas: Obscured by overlying bowel. Right kidney: [...] 1210 COPY TO: SAMARA DAS NP Free Uewefguvj6861-50-74 09:35:00* Test Item Value Reference Range Interpretation Comments Free Thyroxine (test code = 3024-7) 0.76 0.9-1.8 L [facility] AustinThyroid Stimulating Hormone (TSH) 2019-01-06 09:35:00* Test Item Value Reference Range Interpretation Comments Thyroid Stimulating Hormone (TSH) (test code = 06777-2) 0.739 0.350-4.940 [facility] AustinHemoglobin A1c Kwofjhr6083-97-56 08:54:00 * Test Item Value Reference Range Interpretation Comments Hemoglobin A1c Percent (test code = Hemoglobin A1c Percent) 6.2 4.0-7.0 [facility] AustinArterial Blood rS3259-33-69 01:40:00* Test Item Value Reference Range Interpretation Comments Arterial Blood pH (test code = 2744-1) 7.35 7.31-7.41 [facility] AustinArterial Blood Partial Pressure CO2 2019-01-06 01:40:00* Test Item Value Reference Range Interpretation Comments Arterial Blood Partial Pressure CO2 (test code = 2018-8) 66 41-51 HH Results called to MELISA ORDONEZ at 2005 on 01/05/19 by Jimy Rosales. RB [place].[facility] AustinArterial Blood Partial Pressure X83904-99-60 01:40:00* Test Item Value Reference Range Interpretation Comments Arterial Blood Partial Pressure O2 (test code = 2018-8) 98 80-105 [facility] AustinArterial Blood HFX14225-49-53 01:40:00* Test Item Value Reference Range Interpretation Comments Arterial Blood HCO3 (test code = 1960-4) 36 23-28 H [facility] AustinArterial Blood Base Hxkdww1221-39-86 01:40:00* Test Item Value Reference Range Interpretation Comments Arterial Blood Base Excess (test code = 1925-7) 10.0 -2-3 H [facility] AustinArterial Blood Oxygen Saturation 2019-01-06 01:40:00* Test Item Value Reference Range Interpretation Comments Arterial Blood Oxygen Saturation (test code = 2708-6) 97.0 95-98 [facility] AustinFiO22019-03-13 01:40:00* Test Item Value Reference Range Interpretation Comments FiO2 (test code = FiO2) 35 PT ON 4L [place] SATT[place] 100% HR80 AL89XEOAscension [facility]on [facility] Austin Arterial Blood cB0010-56-55 01:40:00* Test Item Value Reference Range Interpretation Comments Arterial Blood pH (test code = 2744-1) 7.35 7.31-7.41 [facility] AustinArterial Blood Partial Pressure CO2 2019-01-06 01:40:00* Test Item Value Reference Range Interpretation Comments Arterial Blood Partial Pressure CO2 (test code = 2019-8) 66 41-51 HH Results called to MELISA ORDONEZ at 2004 on 01/05/19 by Jimy Rosales. CATHY [place].[facility] AustinArterial Blood Partial Pressure O84938-31-19 01:40:00* Test Item Value Reference Range Interpretation Comments Arterial Blood Partial Pressure O2 (test code = 2018-8) 98 80-105 [facility] AustinArterial Blood ZZV80846-90-72 01:40:00* Test Item Value Reference Range Interpretation Comments Arterial Blood HCO3 (test code = 1960-4) 36 23-28 H [facility] AustinArterial Blood Base Ikksoi8302-58-00 01:40:00* Test Item Value Reference Range Interpretation Comments Arterial Blood Base Excess (test code = 1925-7) 10.0 -2-3 H [facility] AustinArterial Blood Oxygen Saturation 2019-01-06 01:40:00* Test Item Value Reference Range Interpretation Comments Arterial Blood Oxygen Saturation (test code = 2708-6) 97.0 95-98 [facility] AustinFiO22019-03-13 01:40:00* Test Item Value Reference Range Interpretation Comments FiO2 (test code = FiO2) 35 PT ON 4L [place] 100% HR80 PV60NNBAscension [facility]on [facility] Austin Arterial Blood hC7185-16-44 01:40:00* Test Item Value Reference Range Interpretation Comments Arterial Blood pH (test code = 2744-1) 7.35 7.31-7.41 [facility] AustinArterial Blood Partial Pressure CO2 2019-01-06 01:40:00* Test Item Value Reference Range Interpretation Comments Arterial Blood Partial Pressure CO2 (test code = 2019-8) 66 41-51 HH Results called to MELISA ORDONEZ at 2004 on 01/05/19 by Jimy Rosales. CATHY [place].[facility] AustinArterial Blood Partial Pressure Y74322-35-27 01:40:00* Test Item Value Reference Range Interpretation Comments Arterial Blood Partial Pressure O2 (test code = 2018-8) 98 80-105 [facility] AustinArterial Blood YYC79682-46-66 01:40:00* Test Item Value Reference Range Interpretation Comments Arterial Blood HCO3 (test code = 1960-4) 36 23-28 H [facility] AustinArterial Blood Base Zzziqr2962-67-99 01:40:00* Test Item Value Reference Range Interpretation Comments Arterial Blood Base Excess (test code = 1925-7) 10.0 -2-3 H [facility] AustinArterial Blood Oxygen Saturation 2019-01-06 01:40:00* Test Item Value Reference Range Interpretation Comments Arterial Blood Oxygen Saturation (test code = 2708-6) 97.0 95-98 [facility] AustinFiO22019-03-13 01:40:00* Test Item Value Reference Range Interpretation Comments FiO2 (test code = FiO2) 35 PT ON 4L [place] 100% HR80 EJ35VGKAscension Seton Medical [facility] Austin Arterial Blood nD3613-29-06 01:40:00* Test Item Value Reference Range Interpretation Comments Arterial Blood pH (test code = 2744-1) 7.35 7.31-7.41 [facility] AustinArterial Blood Partial Pressure CO2 2019-01-06 01:40:00* Test Item Value Reference Range Interpretation Comments Arterial Blood Partial Pressure CO2 (test code = 2018-8) 66 41-51 HH Results called to MELISA ORDONEZ at 2005 on 01/05/19 by Jimy Rosales. RB OK.[facility] AustinArterial Blood Partial Pressure O46408-08-69 01:40:00* Test Item Value Reference Range Interpretation Comments Arterial Blood Partial Pressure O2 (test code = 2018-8) 98 80-105 [facility] AustinArterial Blood EYP78430-83-83 01:40:00* Test Item Value Reference Range Interpretation Comments Arterial Blood HCO3 (test code = 1960-4) 36 23-28 H [facility] AustinArterial Blood Base Pgzvxd7710-09-43 01:40:00* Test Item Value Reference Range Interpretation Comments Arterial Blood Base Excess (test code = 1925-7) 10.0 -2-3 H [facility] AustinArterial Blood Oxygen Saturation 2019-01-06 01:40:00* Test Item Value Reference Range Interpretation Comments Arterial Blood Oxygen Saturation (test code = 2708-6) 97.0 95-98 [facility] AustinFiO22019-03-13 01:40:00* Test Item Value Reference Range Interpretation Comments FiO2 (test code = FiO2) 35 PT ON 4L [place] 100% HR80 QA07NENAscension [facility]on [facility] Austin Arterial Blood oY8882-63-65 01:40:00* Test Item Value Reference Range Interpretation Comments Arterial Blood pH (test code = 2744-1) 7.35 7.31-7.41 [facility] AustinAr[facility]ial Blood Partial Pressure CO2 2019-01-06 01:40:00* Test Item Value Reference Range Interpretation Comments Arterial Blood Partial Pressure CO2 (test code = 2018-8) 66 41-51 HH Results called to MELISA ORDONEZ at 2005 on 01/05/19 by Jimy Rosales. RB [place].[facility] AustinArterial Blood Partial Pressure C59844-93-59 01:40:00* Test Item Value Reference Range Interpretation Comments Arterial Blood Partial Pressure O2 (test code = 2018-8) 98 80-105 [facility] AustinArterial Blood LYZ35009-04-54 01:40:00* Test Item Value Reference Range Interpretation Comments Arterial Blood HCO3 (test code = 1960-4) 36 23-28 H [facility] AustinArterial Blood Base Hxttrl6456-27-00 01:40:00* Test Item Value Reference Range Interpretation Comments Arterial Blood Base Excess (test code = 1925-7) 10.0 -2-3 H [facility] AustinArterial Blood Oxygen Saturation 2019-01-06 01:40:00* Test Item Value Reference Range Interpretation Comments Arterial Blood Oxygen Saturation (test code = 2708-6) 97.0 95-98 [facility] AustinFiO22019-03-13 01:40:00* Test Item Value Reference Range Interpretation Comments FiO2 (test code = FiO2) 35 PT ON 4L [place] 100% HR80 [id number] [facility] P8314[facility]25-89 21:08:00 [facility] [address] [address] Patient Name: STEVE BENEDICT MR #: [id number] : 1945 Age/Sex: 73/M Req #: [id number] Adm Physician: Ordered by: TAMIE WADDELL PAYROLL CLERK Report #: [id number] Location: ER Room/Bed: Procedure: [id number] CT/CT CHEST W Exam Date: 01/05/19 Exam Time: 2004 REPORT STATUS: Signed EXAM: CT Ch est WITH contrast (PE Protocol) INDICATION: Shortness of breath NAZANIN RISON: Chest x-ray 01/05/2019 TECHNIQUE: Chest was scanned utilizing a [facility] tidetector helical scanner from the lung apex [...] TAMIE WADDELL NP CHEST SINGLE (PORTABLE)2019-01-05 17:14:00 [address] [place] [address] Patient Name: STEVE BENEDICT MR #: [id number] : 1945 Age/Sex: 73/M Req #: [id number] Adm Physician: Ordered by: TAMIE WADDELL NP Report #: [id number] Location: Room/Bed: Procedure: [id number] DX/CHEST SINGLE (PORTABLE) Exam Date: 01/05/19 Exam [...] COPY TO: TAMIE ARREGUIN NP B-Type Natriuretic Svrfrko0024-77-24 15:08:00* Test Item Value Reference Range Interpretation Comments B-Type Natriuretic Peptide (test code = 23573-2) 344.6 0-100 H [facility] AustinCreatine Kinase KF0635-96-20 15:07:00* Test Item Value Reference Range Interpretation Comments Creatine Kinase MB (test code = 50398-4) 1.70 0-5.0 [facility] AustinTroponin [id number] 15:07:00* Test Item Value Reference Range Interpretation Comments Troponin I (test code = YJV6847) 0.015 0-0.300 [facility] Grhjo4440-28-63 14:59:00* Test Item Value Reference Range Interpretation Comments Sodium Level (test code = 2951-2) 138 136-145 [facility] AustinPotassium Ksobv1549-41-26 14:59:00* Test Item Value Reference Range Interpretation Comments Potassium Level (test code = 2823-3) 3.8 3.5-5.1 [facility] AustinChloride Rdmjs4447-27-72 14:59:00* Test Item Value Reference Range Interpretation Comments Chloride Level (test code = 2075-0) 93 98-107 L [facility] AustinCarbon Dioxide Vhjhd4696-48-59 14:59:00* Test Item Value Reference Range Interpretation Comments Carbon Dioxide Level (test code = 2028-9) 39 22-29 H [facility] AustinAnion Rpo2394-78-31 14:59:00* Test Item Value Reference Range Interpretation Comments Anion Gap (test code = 97743-8) 9.8 8-16 [facility] AustinBlood Urea Zfdprydr0123-85-15 14:59:00* Test Item Value Reference Range Interpretation Comments Blood Urea Nitrogen (test code = 3094-0) 18 7-26 [facility] AustinCreatinine2019-03-12 14:59:00* Test Item Value Reference Range Interpretation Comments Creatinine (test code = 2160-0) 1.47 0.72-1.25 H [facility] AustinBUN/Creatinine Xcvuj4651-60-73 14:59:00* Test Item Value Reference Range Interpretation Comments BUN/Creatinine Ratio (test code = 3097-3) 12 6-25 [facility] AustinEstimat Glomerular Filtration Rate 2019-01-05 14:59:00* Test Item Value Reference Range Interpretation Comments Estimat Glomerular Filtration Rate (test code = 083708520) 47 >60 L Ranges were taken from the National Kidney Disease Education Program and the [facility] literature.Reference ranges:60 or greater: Fwyctz49-42 ( for 3 consecutive months): Chronic kidney disease 15 or less: Kidney failureAscension Seton Medical Center AustinGlucose Zxutu4101-98-54 14:59:00* Test Item Value Reference Range Interpretation Comments Glucose Level (test code = LLE4989) 116 74-118 [facility] AustinCalcium Sopey3317-69-09 14:59:00* Test Item Value Reference Range Interpretation Comments Calcium Level (test code = 68647-6) 9.0 8.4-10.2 [facility] AustinTotal Fblcugnvh8026-72-20 14:59:00* Test Item Value Reference Range Interpretation Comments Total Bilirubin (test code = 1975-2) 0.6 0.2-1.2 [facility] AustinAspartate Amino Transf (AST/SGOT) 2019-01-05 14:59:00* Test Item Value Reference Range Interpretation Comments Aspartate Amino Transf (AST/SGOT) (test code = Aspartate Amino Transf (AST/SGOT)) 17 5-34 [facility] AustinAlanine Aminotransferase (ALT/SGPT) 2019-01-05 14:59:00* Test Item Value Reference Range Interpretation Comments Alanine Aminotransferase (ALT/SGPT) (test code = 1742-6) 14 0-55 [facility] AustinTotal Wfmawis6874-71-35 14:59:00* Test Item Value Reference Range Interpretation Comments Total Protein (test code = 2885-2) 6.6 6.5-8.1 [facility] AustinAlbumin2019-03-12 14:59:00* Test Item Value Reference Range Interpretation Comments Albumin (test code = 1751-7) 3.5 3.5-5.0 [facility] AustinGlobulin2019-03-12 14:59:00* Test Item Value Reference Range Interpretation Comments Globulin (test code = 24962-6) 3.1 2.3-3.5 [facility] AustinAlbumin/Globulin Mhmfs4527-35-65 14:59:00 * Test Item Value Reference Range Interpretation Comments Albumin/Globulin Ratio (test code = 1759-0) 1.1 0.8-2.0 [facility] AustinAlkaline Gwtrmoficjv4874-52-37 14:59:00* Test Item Value Reference Range Interpretation Comments Alkaline Phosphatase (test code = 6768-6) 106 40-150 [facility] AustinCreatine Gdpqal4799-35-72 14:59:00* Test Item Value Reference Range Interpretation Comments Creatine Kinase (test code = 2157-6) 83 30-200 [facility] AustinTotal Kpatgpbps5578-05-48 14:59:00* Test Item Value Reference Range Interpretation Comments Total Bilirubin (test code = 1975-2) 0.6 0.2-1.2 [facility] AustinAspartate Amino Transf (AST/SGOT) 2019-01-05 14:59:00* Test Item Value Reference Range Interpretation Comments Aspartate Amino Transf (AST/SGOT) (test code = Aspartate Amino Transf (AST/SGOT)) 17 5-34 [facility] AustinAlanine Aminotransferase (ALT/SGPT) 2019-01-05 14:59:00* Test Item Value Reference Range Interpretation Comments Alanine Aminotransferase (ALT/SGPT) (test code = 1742-6) 14 0-55 [facility] AustinTotal Thzszcu1947-55-53 14:59:00* Test Item Value Reference Range Interpretation Comments Total Protein (test code = 2885-2) 6.6 6.5-8.1 [facility] AustinAlbumin2019-03-12 14:59:00* Test Item Value Reference Range Interpretation Comments Albumin (test code = 1751-7) 3.5 3.5-5.0 [facility] AustinGlobulin2019-03-12 14:59:00* Test Item Value Reference Range Interpretation Comments Globulin (test code = 44212-3) 3.1 2.3-3.5 [facility] AustinAlbumin/Globulin Zvyac7866-81-75 14:59:00 * Test Item Value Reference Range Interpretation Comments Albumin/Globulin Ratio (test code = 1759-0) 1.1 0.8-2.0 [facility] AustinAlkaline Vsunkbiiobi1293-63-07 14:59:00* Test Item Value Reference Range Interpretation Comments Alkaline Phosphatase (test code = 6768-6) 106 40-150 [facility] AustinLactic Acid Kyapv6110-74-30 14:57:00* Test Item Value Reference Range Interpretation Comments Lactic Acid Level (test code = Lactic Acid Level) 13.5 4.5- 19.8 [facility] AustinLactic Acid Idbew0737-97-90 14:57:00* Test Item Value Reference Range Interpretation Comments Lactic Acid Level (test code = Lactic Acid Level) 13.5 4.5- 19.8 [facility] AustinLactic Acid Sdzgs3112-94-79 14:57:00* Test Item Value Reference Range Interpretation Comments Lactic Acid Level (test code = Lactic Acid Level) 13.5 4.5- 19.8 [facility] AustinLactic Acid Aqhcg0242-43-25 14:57:00* Test Item Value Reference Range Interpretation Comments Lactic Acid Level (test code = Lactic Acid Level) 13.5 4.5- 19.8 [facility] AustinProthrombin Xbfp3534-64-20 14:51:00* Test Item Value Reference Range Interpretation Comments Prothrombin Time (test code = 5902-2) 16.2 11.9-14.5 H [facility] AustinProthromb Time International Ratio 2019-01-05 14:51:00* Test Item Value Reference Range Interpretation Comments Prothromb Time International Ratio (test code = 6301-6) 1.24 Oral Anticoagulant Therapy INR Values:1. Low Intensity Therapy 1.5 - 2.02 . Moderate Intensity Therapy 2.0 - 3.03. High Intensity Therapy(1) 2.5 - 3. 54. High Intensity Therapy(2) 3.0 - 4.05. Panic Value INR > 5.0 [facility] AustinActivated Partial Thromboplast Time 2019-01-05 14:51:00* Test Item Value Reference Range Interpretation Comments Activated Partial Thromboplast Time (test code = 34233-3) 38.8 23.8-35.5 H [facility] AustinProthrombin Cjkl0620-65-02 14:51:00* Test Item Value Reference Range Interpretation Comments Prothrombin Time (test code = 5902-2) 16.2 11.9-14.5 H [facility] AustinProthromb Time International Ratio 2019-01-05 14:51:00* Test Item Value Reference Range Interpretation Comments Prothromb Time International Ratio (test code = 6301-6) 1.24 Oral Anticoagulant Therapy INR Values:1. Low Intensity Therapy 1.5 - 2.02 . Moderate Intensity Therapy 2.0 - 3.03. High Intensity Therapy(1) 2.5 - 3. 54. High Intensity Therapy(2) 3.0 - 4.05. Panic Value INR > 5.0 [facility] AustinActivated Partial Thromboplast Time 2019-01-05 14:51:00* Test Item Value Reference Range Interpretation Comments Activated Partial Thromboplast Time (test code = 21473-0) 38.8 23.8-35.5 H [facility] AustinWhite Blood Xktxh1162-18-43 14:43:00* Test Item Value Reference Range Interpretation Comments White Blood Count (test code = 6690-2) 4.52 4.8-10.8 L [facility] AustinRed Blood Kktjc5256-11-46 14:43:00* Test Item Value Reference Range Interpretation Comments Red Blood Count (test code = 789-8) 5.99 4.3-5.7 H [facility] AustinHemoglobin2019-03-12 14:43:00* Test Item Value Reference Range Interpretation Comments Hemoglobin (test code = 69275-7) 16.2 14.0-18.0 [facility] AustinHematocrit2019-03-12 14:43:00* Test Item Value Reference Range Interpretation Comments Hematocrit (test code = 4544-3) 55.5 38.2-49.6 H [facility] AustinMean Corpuscular Xsdwng2963-63-23 14:43:00* Test Item Value Reference Range Interpretation Comments Mean Corpuscular Volume (test code = 787-2) 92.7 81-99 [facility] AustinMean Corpuscular Lsntjyseth9012-43-51 14:43:00* Test Item Value Reference Range Interpretation Comments Mean Corpuscular Hemoglobin (test code = 785-6) 27.0 28-32 L [facility] AustinMean Corpuscular Hemoglobin Concent 2019-01-05 14:43:00* Test Item Value Reference Range Interpretation Comments Mean Corpuscular Hemoglobin Concent (test code = 786-4) 29.2 31-35 L [facility] AustinRed Cell Distribution Pwncy1422-82-67 14:43:00* Test Item Value Reference Range Interpretation Comments Red Cell Distribution Width (test code = 87194-6) 18.1 11.7 -14.4 H [facility] AustinPlatelet Isscl0699-65-37 14:43:00* Test Item Value Reference Range Interpretation Comments Platelet Count (test code = 777-3) 171 140-360 [facility] AustinNeutrophils (%) (Auto)2019-01-05 14:43:00 * Test Item Value Reference Range Interpretation Comments Neutrophils (%) (Auto) (test code = 06446-5) 62.2 38.7-80.0 [facility] AustinLymphocytes (%) (Auto)2019-01-05 14:43:00 * Test Item Value Reference Range Interpretation Comments Lymphocytes (%) (Auto) (test code = 736-9) 17.7 18.0-39.1 L [facility] AustinMonocytes (%) (Auto)2019-01-05 14:43:00* Test Item Value Reference Range Interpretation Comments Monocytes (%) (Auto) (test code = 5905-5) 11.9 4.4-11.3 H [facility] AustinEosinophils (%) (Auto)2019-01-05 14:43:00 * Test Item Value Reference Range Interpretation Comments Eosinophils (%) (Auto) (test code = 713-8) 6.9 0.0-6.0 H [facility] AustinBasophils (%) (Auto)2019-01-05 14:43:00* Test Item Value Reference Range Interpretation Comments Basophils (%) (Auto) (test code = 706-2) 0.9 0.0-1.0 [facility] AustinIM GRANULOCYTES %2019-01-05 14:43:00* Test Item Value Reference Range Interpretation Comments IM GRANULOCYTES % (test code = IM GRANULOCYTES %) 0.4 0.0- 1.0 [facility] AustinNeutrophils # (Auto)2019-01-05 14:43:00* Test Item Value Reference Range Interpretation Comments Neutrophils # (Auto) (test code = 751-8) 2.8 2.1-6.9 [facility] AustinLymphocytes # (Auto)2019-01-05 14:43:00* Test Item Value Reference Range Interpretation Comments Lymphocytes # (Auto) (test code = 38330-8) 0.8 1.0-3.2 L [facility] AustinMonocytes # (Auto)2019-01-05 14:43:00* Test Item Value Reference Range Interpretation Comments Monocytes # (Auto) (test code = 742-7) 0.5 0.2-0.8 [facility] AustinEosinophils # (Auto)2019-01-05 14:43:00* Test Item Value Reference Range Interpretation Comments Eosinophils # (Auto) (test code = 711-2) 0.3 0.0-0.4 [facility] AustinBasophils # (Auto)2019-01-05 14:43:00* Test Item Value Reference Range Interpretation Comments Basophils # (Auto) (test code = 704-7) 0.0 0.0-0.1 [facility] AustinAbsolute Immature Granulocyte (auto 2019-01-05 14:43:00* Test Item Value Reference Range Interpretation Comments Absolute Immature Granulocyte (auto (bharat t code = Absolute Immature Granulocyte (auto) 0.02 0-0.1 [facility] NXZ2701-82-73 17:11:00 [place] [address] Patient Name: STEVE BENEDICT MR #: [id number] : 1945 Age/Sex: 73/M Req #: [id number] Adm Physician: HAILEE MCGUIRE MD Ordered by: SUHAS BLACK MD Report #: [id number] Location: [facility] Room/Bed: [place] [address] Procedure: [id number] IR/S PECIAL 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 Dr. Suhas Black was also contacted via telepho ne at the conclusion of the procedure to inform him of the above on 12/30/2018. Signed by: Dr. Jose Manuel Person MD on 01/01/2019 6:00 PM Dictated By: CHIKI PERSON MD 1800 Transcribed By: ERAN on 01/01/19 1800 COPY TO: SUHAS BLACK MD Bedside Keiowwx7358-64-68 11:04:00* Test Item Value Reference Range Interpretation Comments Bedside Glucose (test code = 39680-9) 105 70-120 Meter ID: [id number] [facility] Glucose 2018-12-30 11:04:00* Test Item Value Reference Range Interpretation Comments Bedside Glucose (test code = 45112-0) 105 70-120 [id number] 2018-12-16 05:18:00* Test Item Value Reference Range Interpretation Comments Blood Culture (test code = 09387331) NO GROWTH AFTER 5 DAYS, FINAL REPORT [facility] Grsosut4780-54-91 05:18:00* Test Item Value Reference Range Interpretation Comments Blood Culture (test code = 37133230) NO GROWTH AFTER 5 DAYS, FINAL REPORT [facility] Fgwedxv3890-87-93 11:33:00* Test Item Value Reference Range Interpretation Comments Bedside Glucose (test code = 23600-6) 178 70-120 H Meter ID: [id number] [facility]opedic HospitalB[facility] Natriuretic Cfskwic3222-94-25 17:13:00* Test Item Value Reference Range Interpretation Comments B-Type Natriuretic Peptide (test code = 74864-3) 103.7 0-100 H [facility] AustinB-Type Natriuretic Gumdkbe6379-57-59 17:13:00* Test Item Value Reference Range Interpretation Comments B-Type Natriuretic Peptide (test code = 80112-3) 103.7 0-100 H [facility] Brenhamodium Yelyv4927-32-47 06:24:00* Test Item Value Reference Range Interpretation Comments Sodium Level (test code = 2951-2) 140 136-145 [facility] AustinPotassium Plfgo6214-96-91 06:24:00* Test Item Value Reference Range Interpretation Comments Potassium Level (test code = 2823-3) 4.3 3.5-5.1 [facility] AustinChloride Jmacr9444-38-06 06:24:00* Test Item Value Reference Range Interpretation Comments Chloride Level (test code = 2075-0) 90 98-107 L [facility] AustinCarbon Dioxide Hgwnb9069-47-67 06:24:00* Test Item Value Reference Range Interpretation Comments Carbon Dioxide Level (test code = 2028-9) 39 22-29 H [facility] AustinAnion Ass4140-26-17 06:24:00* Test Item Value Reference Range Interpretation Comments Anion Gap (test code = 87300-0) 15.3 8-16 [facility] AustinBlood Urea Mtjxcadt4809-98-30 06:24:00* Test Item Value Reference Range Interpretation Comments Blood Urea Nitrogen (test code = 3094-0) 34 7-26 H [facility] AustinCreatinine2019-02-18 06:24:00* Test Item Value Reference Range Interpretation Comments Creatinine (test code = 2160-0) 1.60 0.72-1.25 H [facility] AustinBUN/Creatinine Cmsmt2762-34-09 06:24:00* Test Item Value Reference Range Interpretation Comments BUN/Creatinine Ratio (test code = 3097-3) 21 6-25 [facility] AustinEstimat Glomerular Filtration Rate 2018-12-14 06:24:00* Test Item Value Reference Range Interpretation Comments Estimat Glomerular Filtration Rate (test code = 510696879) 42 >60 L Ranges were taken from the National Kidney Disease Education Program and the [place] [facility] [employer] literature.Reference ranges:60 or greater: Dgurhv68-41 ( for 3 consecutive months): Chronic kidney disease 15 or less: Kidney failureAscension [facility]on [facility] Center AustinGlucose Pcbjm5834-93-96 06:24:00* Test Item Value Reference Range Interpretation Comments Glucose Level (test code = SFQ0671) 150 74-118 H [facility] AustinCalcium Cjonv4381-18-37 06:24:00* Test Item Value Reference Range Interpretation Comments Calcium Level (test code = 25620-9) 9.3 8.4-10.2 [facility]hamodium Qnpdw2394-68-52 06:24:00* Test Item Value Reference Range Interpretation Comments Sodium Level (test code = 2951-2) 140 136-145 [facility] AustinPotassium Tfami2568-50-20 06:24:00* Test Item Value Reference Range Interpretation Comments Potassium Level (test code = 2823-3) 4.3 3.5-5.1 [facility] AustinChloride Qkjpr8537-14-61 06:24:00* Test Item Value Reference Range Interpretation Comments Chloride Level (test code = 2075-0) 90 98-107 L [facility] AustinCarbon Dioxide Bpvnu6974-53-97 06:24:00* Test Item Value Reference Range Interpretation Comments Carbon Dioxide Level (test code = 2028-9) 39 22-29 H [facility] AustinAnion Fyx4761-56-87 06:24:00* Test Item Value Reference Range Interpretation Comments Anion Gap (test code = 34843-4) 15.3 8-16 [facility] AustinBlood Urea Zultoxux4144-45-35 06:24:00* Test Item Value Reference Range Interpretation Comments Blood Urea Nitrogen (test code = 3094-0) 34 7-26 H [facility] AustinCreatinine2019-02-18 06:24:00* Test Item Value Reference Range Interpretation Comments Creatinine (test code = 2160-0) 1.60 0.72-1.25 H [facility] AustinBUN/Creatinine Tsbwn9789-16-23 06:24:00* Test Item Value Reference Range Interpretation Comments BUN/Creatinine Ratio (test code = 3097-3) 21 6-25 [facility] AustinEstimat Glomerular Filtration Rate 2018-12-14 06:24:00* Test Item Value Reference Range Interpretation Comments Estimat Glomerular Filtration Rate (test code = 725099611) 42 >60 L Ranges were taken from the National Kidney Disease Education Program and the [place] [employer] Foundation literature.Reference ranges:60 or greater: Nrtnmw11-18 ( for 3 consecutive months): Chronic kidney disease 15 or less: Kidney failureAscension Seton Medical Center AustinGlucose Fxugf3435-54-85 06:24:00* Test Item Value Reference Range Interpretation Comments Glucose Level (test code = BBE0284) 150 74-118 H [facility] AustinCalcium Jcmwq3140-76-82 06:24:00* Test Item Value Reference Range Interpretation Comments Calcium Level (test code = 24220-1) 9.3 8.4-10.2 [facility] AustinBlood Xvzrdvn3344-88-48 05:18:00* Test Item Value Reference Range Interpretation Comments Blood Culture (test code = 35478269) NO GROWTH AFTER 72 HOURS [facility] AustinTotal Sihssjrzc4228-32-45 05:32:00* Test Item Value Reference Range Interpretation Comments Total Bilirubin (test code = 1975-2) 0.7 0.2-1.2 [facility] AustinAspartate Amino Transf (AST/SGOT) 2018-12-13 05:32:00* Test Item Value Reference Range Interpretation Comments Aspartate Amino Transf (AST/SGOT) (test code = Aspartate Amino Transf (AST/SGOT)) 13 5-34 [facility] AustinAlanine Aminotransferase (ALT/SGPT) 2018-12-13 05:32:00* Test Item Value Reference Range Interpretation Comments Alanine Aminotransferase (ALT/SGPT) (test code = 1742-6) 25 0-55 [facility] AustinTotal Uiechkq3929-78-42 05:32:00* Test Item Value Reference Range Interpretation Comments Total Protein (test code = 2885-2) 6.0 6.5-8.1 L [facility] AustinAlbumin2019-02-17 05:32:00* Test Item Value Reference Range Interpretation Comments Albumin (test code = 1751-7) 3.5 3.5-5.0 [facility] AustinGlobulin2019-02-17 05:32:00* Test Item Value Reference Range Interpretation Comments Globulin (test code = 16327-3) 2.5 2.3-3.5 [facility] AustinAlbumin/Globulin Nfpje1462-47-32 05:32:00 * Test Item Value Reference Range Interpretation Comments Albumin/Globulin Ratio (test code = 1759-0) 1.4 0.8-2.0 [facility] AustinAlkaline Veywayumbso9935-32-84 05:32:00* Test Item Value Reference Range Interpretation Comments Alkaline Phosphatase (test code = 6768-6) 69 40-150 [facility] AustinTotal Ecmcllziq4292-85-62 05:32:00* Test Item Value Reference Range Interpretation Comments Total Bilirubin (test code = 1975-2) 0.7 0.2-1.2 [facility] AustinAspartate Amino Transf (AST/SGOT) 2018-12-13 05:32:00* Test Item Value Reference Range Interpretation Comments Aspartate Amino Transf (AST/SGOT) (test code = Aspartate Amino Transf (AST/SGOT)) 13 5-34 [facility] AustinAlanine Aminotransferase (ALT/SGPT) 2018-12-13 05:32:00* Test Item Value Reference Range Interpretation Comments Alanine Aminotransferase (ALT/SGPT) (test code = 1742-6) 25 0-55 [facility] Kkltzfd8168-00-08 05:32:00* Test Item Value Reference Range Interpretation Comments Total Protein (test code = 2885-2) 6.0 6.5-8.1 L [facility] AustinAlbumin2019-02-17 05:32:00* Test Item Value Reference Range Interpretation Comments Albumin (test code = 1751-7) 3.5 3.5-5.0 [facility] AustinGlobulin2019-02-17 05:32:00* Test Item Value Reference Range Interpretation Comments Globulin (test code = 30678-0) 2.5 2.3-3.5 [facility] AustinAlbumin/Globulin Pfgmx2186-28-87 05:32:00 * Test Item Value Reference Range Interpretation Comments Albumin/Globulin Ratio (test code = 1759-0) 1.4 0.8-2.0 [facility] AustinAlkaline Lyhzpaoiqca8770-55-20 05:32:00* Test Item Value Reference Range Interpretation Comments Alkaline Phosphatase (test code = 6768-6) 69 40-150 [facility] AustinWhite Blood Wfypb8662-82-57 05:08:00* Test Item Value Reference Range Interpretation Comments White Blood Count (test code = 6690-2) 8.82 4.8-10.8 [facility] AustinRed Blood Fbvtg0854-13-07 05:08:00* Test Item Value Reference Range Interpretation Comments Red Blood Count (test code = 789-8) 6.47 4.3-5.7 H [facility] AustinHemoglobin2019-02-17 05:08:00* Test Item Value Reference Range Interpretation Comments Hemoglobin (test code = 93123-8) 16.8 14.0-18.0 [facility] AustinHematocrit2019-02-17 05:08:00* Test Item Value Reference Range Interpretation Comments Hematocrit (test code = 4544-3) 55.2 38.2-49.6 H [facility] AustinMean Corpuscular Rihenf8762-76-68 05:08:00* Test Item Value Reference Range Interpretation Comments Mean Corpuscular Volume (test code = 787-2) 85.3 81-99 [facility] AustinMean Corpuscular Yopyoexmzo0618-27-24 05:08:00* Test Item Value Reference Range Interpretation Comments Mean Corpuscular Hemoglobin (test code = 785-6) 26.0 28-32 L [facility] AustinMean Corpuscular Hemoglobin Concent 2018-12-13 05:08:00* Test Item Value Reference Range Interpretation Comments Mean Corpuscular Hemoglobin Concent (test code = 786-4) 30.4 31-35 L [facility] AustinRed Cell Distribution Umdbs1936-31-54 05:08:00* Test Item Value Reference Range Interpretation Comments Red Cell Distribution Width (test code = 93582-9) 19.9 11.7 -14.4 H [facility] AustinPlatelet Cbyin5269-34-28 05:08:00* Test Item Value Reference Range Interpretation Comments Platelet Count (test code = 777-3) 198 140-360 [facility] AustinNeutrophils (%) (Auto)2018-12-13 05:08:00 * Test Item Value Reference Range Interpretation Comments Neutrophils (%) (Auto) (test code = 53952-2) 82.4 38.7-80.0 H [facility] AustinLymphocytes (%) (Auto)2018-12-13 05:08:00 * Test Item Value Reference Range Interpretation Comments Lymphocytes (%) (Auto) (test code = 736-9) 12.1 18.0-39.1 L [facility] AustinMonocytes (%) (Auto)2018-12-13 05:08:00* Test Item Value Reference Range Interpretation Comments Monocytes (%) (Auto) (test code = 5905-5) 4.9 4.4-11.3 [facility] AustinEosinophils (%) (Auto)2018-12-13 05:08:00 * Test Item Value Reference Range Interpretation Comments Eosinophils (%) (Auto) (test code = 713-8) 0.0 0.0-6.0 [facility] AustinBasophils (%) (Auto)2018-12-13 05:08:00* Test Item Value Reference Range Interpretation Comments Basophils (%) (Auto) (test code = 706-2) 0.1 0.0-1.0 [facility] AustinIM GRANULOCYTES %2018-12-13 05:08:00* Test Item Value Reference Range Interpretation Comments IM GRANULOCYTES % (test code = IM GRANULOCYTES %) 0.5 0.0- 1.0 [facility] AustinNeutrophils # (Auto)2018-12-13 05:08:00* Test Item Value Reference Range Interpretation Comments Neutrophils # (Auto) (test code = 751-8) 7.3 2.1-6.9 H [facility] AustinLymphocytes # (Auto)2018-12-13 05:08:00* Test Item Value Reference Range Interpretation Comments Lymphocytes # (Auto) (test code = 50838-1) 1.1 1.0-3.2 [facility] AustinMonocytes # (Auto)2018-12-13 05:08:00* Test Item Value Reference Range Interpretation Comments Monocytes # (Auto) (test code = 742-7) 0.4 0.2-0.8 [facility] AustinEosinophils # (Auto)2018-12-13 05:08:00* Test Item Value Reference Range Interpretation Comments Eosinophils # (Auto) (test code = 711-2) 0.0 0.0-0.4 [facility] AustinBasophils # (Auto)2018-12-13 05:08:00* Test Item Value Reference Range Interpretation Comments Basophils # (Auto) (test code = 704-7) 0.0 0.0-0.1 [facility] AustinAbsolute Immature Granulocyte (auto 2018-12-13 05:08:00* Test Item Value Reference Range Interpretation Comments Absolute Immature Granulocyte (auto (bharat t code = Absolute Immature Granulocyte (auto) 0.04 0-0.1 [facility] AustinWhite Blood Uarxp0995-36-98 05:08:00* Test Item Value Reference Range Interpretation Comments White Blood Count (test code = 6690-2) 8.82 4.8-10.8 [facility] AustinRed Blood Pkyef1481-38-06 05:08:00* Test Item Value Reference Range Interpretation Comments Red Blood Count (test code = 789-8) 6.47 4.3-5.7 H [facility] AustinHemoglobin2019-02-17 05:08:00* Test Item Value Reference Range Interpretation Comments Hemoglobin (test code = 35319-3) 16.8 14.0-18.0 [facility] AustinHematocrit2019-02-17 05:08:00* Test Item Value Reference Range Interpretation Comments Hematocrit (test code = 4544-3) 55.2 38.2-49.6 H [facility] AustinMean Corpuscular Wdusxt1346-26-85 05:08:00* Test Item Value Reference Range Interpretation Comments Mean Corpuscular Volume (test code = 787-2) 85.3 81-99 [facility] AustinMean Corpuscular Axjxlscwja2952-44-74 05:08:00* Test Item Value Reference Range Interpretation Comments Mean Corpuscular Hemoglobin (test code = 785-6) 26.0 28-32 L [facility] AustinMean Corpuscular Hemoglobin Concent 2018-12-13 05:08:00* Test Item Value Reference Range Interpretation Comments Mean Corpuscular Hemoglobin Concent (test code = 786-4) 30.4 31-35 L [facility] Cell Distribution Nupab6808-01-10 05:08:00* Test Item Value Reference Range Interpretation Comments Red Cell Distribution Width (test code = 07355-7) 19.9 11.7 -14.4 H [facility] AustinPlatelet Qwhrz1358-05-72 05:08:00* Test Item Value Reference Range Interpretation Comments Platelet Count (test code = 777-3) 198 140-360 [facility] AustinNeutrophils (%) (Auto)2018-12-13 05:08:00 * Test Item Value Reference Range Interpretation Comments Neutrophils (%) (Auto) (test code = 05189-1) 82.4 38.7-80.0 H [facility] AustinLymphocytes (%) (Auto)2018-12-13 05:08:00 * Test Item Value Reference Range Interpretation Comments Lymphocytes (%) (Auto) (test code = 736-9) 12.1 18.0-39.1 L [facility] AustinMonocytes (%) (Auto)2018-12-13 05:08:00* Test Item Value Reference Range Interpretation Comments Monocytes (%) (Auto) (test code = 5905-5) 4.9 4.4-11.3 [facility] AustinEosinophils (%) (Auto)2018-12-13 05:08:00 * Test Item Value Reference Range Interpretation Comments Eosinophils (%) (Auto) (test code = 713-8) 0.0 0.0-6.0 [facility] AustinBasophils (%) (Auto)2018-12-13 05:08:00* Test Item Value Reference Range Interpretation Comments Basophils (%) (Auto) (test code = 706-2) 0.1 0.0-1.0 [facility] AustinIM GRANULOCYTES %2018-12-13 05:08:00* Test Item Value Reference Range Interpretation Comments IM GRANULOCYTES % (test code = IM GRANULOCYTES %) 0.5 0.0- 1.0 [facility] AustinNeutrophils # (Auto)2018-12-13 05:08:00* Test Item Value Reference Range Interpretation Comments Neutrophils # (Auto) (test code = 751-8) 7.3 2.1-6.9 H [facility] AustinLymphocytes # (Auto)2018-12-13 05:08:00* Test Item Value Reference Range Interpretation Comments Lymphocytes # (Auto) (test code = 07988-1) 1.1 1.0-3.2 [facility] AustinMonocytes # (Auto)2018-12-13 05:08:00* Test Item Value Reference Range Interpretation Comments Monocytes # (Auto) (test code = 742-7) 0.4 0.2-0.8 [facility] AustinEosinophils # (Auto)2018-12-13 05:08:00* Test Item Value Reference Range Interpretation Comments Eosinophils # (Auto) (test code = 711-2) 0.0 0.0-0.4 [facility] AustinBasophils # (Auto)2018-12-13 05:08:00* Test Item Value Reference Range Interpretation Comments Basophils # (Auto) (test code = 704-7) 0.0 0.0-0.1 [facility] AustinAbsolute Immature Granulocyte (auto 2018-12-13 05:08:00* Test Item Value Reference Range Interpretation Comments Absolute Immature Granulocyte (auto (bharat t code = Absolute Immature Granulocyte (auto) 0.04 0-0.1 [facility] AustinUrine Random Total Qapsyih0260-63-75 15:37:00* Test Item Value Reference Range Interpretation Comments Urine Random Total Protein (test code = 2888-6) 20.3 1-14 H [facility] AustinUrine Lzuvaefsri7501-18-59 15:37:00* Test Item Value Reference Range Interpretation Comments Urine Creatinine (test code = 2161-8) 48.99 63-166 L [facility] AustinUrine Protein/Creatinine Ivncc8928-11-13 15:37:00* Test Item Value Reference Range Interpretation Comments Urine Protein/Creatinine Ratio (test code = 62008-2) 0.41 [facility] AustinU[facility] Random Total Ixpuduq0937-72-37 15:37:00* Test Item Value Reference Range Interpretation Comments Urine Random Total Protein (test code = 2888-6) 20.3 1-14 H [facility] AustinUrine Tijcgrspyl2330-09-57 15:37:00* Test Item Value Reference Range Interpretation Comments Urine Creatinine (test code = 2161-8) 48.99 63-166 L [facility] Protein/Creatinine Uumwt8072-48-97 15:37:00* Test Item Value Reference Range Interpretation Comments Urine Protein/Creatinine Ratio (test code = 72411-1) 0.41 [facility] Random Total Xrrheao1812-46-29 15:37:00* Test Item Value Reference Range Interpretation Comments Urine Random Total Protein (test code = 2888-6) 20.3 1-14 H [facility] AustinUrine Pzdopdsxhy0560-30-23 15:37:00* Test Item Value Reference Range Interpretation Comments Urine Creatinine (test code = 2161-8) 48.99 63-166 L [facility] AustinU[facility] Protein/Creatinine Klpib6035-22-24 15:37:00* Test Item Value Reference Range Interpretation Comments Urine Protein/Creatinine Ratio (test code = 23619-0) 0.41 [facility] AustinU[facility] Random Total Szxvbdp5153-54-55 15:37:00* Test Item Value Reference Range Interpretation Comments Urine Random Total Protein (test code = 2888-6) 20.3 1-14 H [facility] AustinUrine Esmapgqaqv4569-09-88 15:37:00* Test Item Value Reference Range Interpretation Comments Urine Creatinine (test code = 2161-8) 48.99 63-166 L [facility] Protein/Creatinine Rxxjh1982-88-20 15:37:00* Test Item Value Reference Range Interpretation Comments Urine Protein/Creatinine Ratio (test code = 70350-3) 0.41 [facility] AustinU[facility] Random Total Bzjuevy9055-66-69 15:37:00* Test Item Value Reference Range Interpretation Comments Urine Random Total Protein (test code = 2888-6) 20.3 1-14 H [facility] AustinUrine Fqqqenavle5906-16-86 15:37:00* Test Item Value Reference Range Interpretation Comments Urine Creatinine (test code = 2161-8) 48.99 63-166 L [facility] AustinU[facility] Protein/Creatinine Vwgvp3855-36-27 15:37:00* Test Item Value Reference Range Interpretation Comments Urine Protein/Creatinine Ratio (test code = 98324-8) 0.41 [facility] Random Total Alyhrle0409-77-57 15:37:00* Test Item Value Reference Range Interpretation Comments Urine Random Total Protein (test code = 2888-6) 20.3 1-14 H [facility] AustinUrine Odgzqvsdxk3594-31-51 15:37:00* Test Item Value Reference Range Interpretation Comments Urine Creatinine (test code = 2161-8) 48.99 63-166 L [facility] Protein/Creatinine Fovjb4859-97-74 15:37:00* Test Item Value Reference Range Interpretation Comments Urine Protein/Creatinine Ratio (test code = 67230-6) 0.41 [facility] Random Total Kppbksy2580-53-63 15:37:00* Test Item Value Reference Range Interpretation Comments Urine Random Total Protein (test code = 2888-6) 20.3 1-14 H [facility] Yebixazkev4961-24-24 15:37:00* Test Item Value Reference Range Interpretation Comments Urine Creatinine (test code = 2161-8) 48.99 63-166 L [facility] Protein/Creatinine Hmmaj7333-11-81 15:37:00* Test Item Value Reference Range Interpretation Comments Urine Protein/Creatinine Ratio (test code = 91777-9) 0.41 [facility] Random Total Tkhdlly5280-25-40 15:37:00* Test Item Value Reference Range Interpretation Comments Urine Random Total Protein (test code = 2888-6) 20.3 1-14 H [facility] AustinUrine Xznwywnwbv0599-18-93 15:37:00* Test Item Value Reference Range Interpretation Comments Urine Creatinine (test code = 2161-8) 48.99 63-166 L [facility] AustinU[facility] Protein/Creatinine Owzom3347-82-07 15:37:00* Test Item Value Reference Range Interpretation Comments Urine Protein/Creatinine Ratio (test code = 30317-9) 0.41 [facility] Random Total Bncawoe1546-14-83 15:37:00* Test Item Value Reference Range Interpretation Comments Urine Random Total Protein (test code = 2888-6) 20.3 1-14 H [facility] AustinU[facility] Xsnbkzclzm3846-25-64 15:37:00* Test Item Value Reference Range Interpretation Comments Urine Creatinine (test code = 2161-8) 48.99 63-166 L [facility] Protein/Creatinine Gvagq3602-89-78 15:37:00* Test Item Value Reference Range Interpretation Comments Urine Protein/Creatinine Ratio (test code = 96044-5) 0.41 [facility] AustinU[facility] Pvykq3516-96-91 14:38:00* Test Item Value Reference Range Interpretation Comments Urine Color (test code = 5778-6) YELLOW YELLOW [facility] AustinU[facility] Hkoazag8585-47-59 14:38:00* Test Item Value Reference Range Interpretation Comments Urine Clarity (test code = 23870-5) CLEAR CLEAR [facility] AustinU[facility] Specific Otmkefs8258-82-30 14:38:00 * Test Item Value Reference Range Interpretation Comments Urine Specific [place] (test code = 5811-5) 1.010 1.010-1.02 5 [facility] AustinU[facility] iD8809-15-19 14:38:00* Test Item Value Reference Range Interpretation Comments Urine pH (test code = 32754-0) 7 5-7 [facility] AustinU[facility] Leukocyte Fwdxwwda9599-84-04 14:38:00* Test Item Value Reference Range Interpretation Comments Urine Leukocyte Esterase (test code = 5799-2) NEGATIVE NEGATIVE [facility] Lvhzpwu8352-95-43 14:38:00* Test Item Value Reference Range Interpretation Comments Urine Nitrite (test code = 70922-1) NEGATIVE NEGATIVE [facility] AustinU[facility] Buztdzl3198-77-63 14:38:00* Test Item Value Reference Range Interpretation Comments Urine Protein (test code = 5804-0) TRACE NEGATIVE H [facility] Glucose (UA)2018-12-12 14:38:00* Test Item Value Reference Range Interpretation Comments Urine Glucose (UA) (test code = 2349-9) NEGATIVE NEGATIVE [facility] Fthqqmz0443-26-25 14:38:00* Test Item Value Reference Range Interpretation Comments Urine Ketones (test code = 19020-4) NEGATIVE NEGATIVE [facility] Qnsxclvdczgd1776-98-61 14:38:00* Test Item Value Reference Range Interpretation Comments Urine Urobilinogen (test code = 00147-7) 0.2 0.2-1 [facility] Wkuyvbcbt3638-55-11 14:38:00* Test Item Value Reference Range Interpretation Comments Urine Bilirubin (test code = 1978-6) NEGATIVE NEGATIVE [facility] Ibuiq6438-02-76 14:38:00* Test Item Value Reference Range Interpretation Comments Urine Blood (test code = 62749-8) NEGATIVE NEGATIVE [facility] MCQ5165-05-53 14:38:00* Test Item Value Reference Range Interpretation Comments Urine WBC (test code = 5821-4) 0-5 0-5 [facility] KKM2108-95-35 14:38:00* Test Item Value Reference Range Interpretation Comments Urine RBC (test code = 95687-0) 0-5 0-5 [facility] Mehuqzki5332-93-39 14:38:00* Test Item Value Reference Range Interpretation Comments Urine Bacteria (test code = 74107-7) NONE NONE [facility] Epithelial Ufqxn1683-17-80 14:38:00 * Test Item Value Reference Range Interpretation Comments Urine Epithelial Cells (test code = 49029-1) FEW NONE [facility] Transitional Epithelial Cells 2018-12-12 14:38:00* Test Item Value Reference Range Interpretation Comments Urine Transitional Epithelial Cells (test code = 8249-5) FEW NONE [facility] Hyaline Rhuhg1530-04-66 14:38:00* Test Item Value Reference Range Interpretation Comments Urine Hyaline Casts (test code = 63160-4) 6-10 0-1 H [facility] Zzsxl6118-19-67 14:38:00* Test Item Value Reference Range Interpretation Comments Urine Color (test code = 5778-6) YELLOW YELLOW [facility] Slufice2814-94-69 14:38:00* Test Item Value Reference Range Interpretation Comments Urine Clarity (test code = 09924-8) CLEAR CLEAR [facility] Specific Ovnikxu6477-55-30 14:38:00 * Test Item Value Reference Range Interpretation Comments Urine Specific [place] (test code = 5811-5) 1.010 1.010-1.02 5 [facility] Austin[facility] tW1197-00-70 14:38:00* Test Item Value Reference Range Interpretation Comments Urine pH (test code = 74315-8) 7 5-7 [facility] Leukocyte Kfnrkgsj3716-98-91 14:38:00* Test Item Value Reference Range Interpretation Comments Urine Leukocyte Esterase (test code = 5799-2) NEGATIVE NEGATIVE [facility] Austin[facility] Dktxitl6324-65-45 14:38:00* Test Item Value Reference Range Interpretation Comments Urine Nitrite (test code = 95655-7) NEGATIVE NEGATIVE [facility] Dwwiphs7596-25-93 14:38:00* Test Item Value Reference Range Interpretation Comments Urine Protein (test code = 5804-0) TRACE NEGATIVE H [facility] Austin[facility] Glucose (UA)2018-12-12 14:38:00* Test Item Value Reference Range Interpretation Comments Urine Glucose (UA) (test code = 2349-9) NEGATIVE NEGATIVE [facility] Smjoxli2690-46-00 14:38:00* Test Item Value Reference Range Interpretation Comments Urine Ketones (test code = 68082-8) NEGATIVE NEGATIVE [facility] Pxymgjkubabu6957-02-58 14:38:00* Test Item Value Reference Range Interpretation Comments Urine Urobilinogen (test code = 69068-1) 0.2 0.2-1 [facility] Aippbtzuh3421-73-08 14:38:00* Test Item Value Reference Range Interpretation Comments Urine Bilirubin (test code = 1978-6) NEGATIVE NEGATIVE [facility] Dkhdu9037-93-43 14:38:00* Test Item Value Reference Range Interpretation Comments Urine Blood (test code = 85927-4) NEGATIVE NEGATIVE [facility] QXR4468-67-12 14:38:00* Test Item Value Reference Range Interpretation Comments Urine WBC (test code = 5821-4) 0-5 0-5 [facility] OQU6304-49-63 14:38:00* Test Item Value Reference Range Interpretation Comments Urine RBC (test code = 83468-6) 0-5 0-5 [facility] Kvuysjfp3846-99-77 14:38:00* Test Item Value Reference Range Interpretation Comments Urine Bacteria (test code = 87463-8) NONE NONE [facility] Epithelial Ipemc0362-19-58 14:38:00 * Test Item Value Reference Range Interpretation Comments Urine Epithelial Cells (test code = 84370-2) FEW NONE [facility] Transitional Epithelial Cells 2018-12-12 14:38:00* Test Item Value Reference Range Interpretation Comments Urine Transitional Epithelial Cells (test code = 8249-5) FEW NONE [facility] Hyaline Mktxq5689-88-01 14:38:00* Test Item Value Reference Range Interpretation Comments Urine Hyaline Casts (test code = 09018-0) 6-10 0-1 H [facility] AustinU[facility] Shefm3278-35-43 14:38:00* Test Item Value Reference Range Interpretation Comments Urine Color (test code = 5778-6) YELLOW YELLOW [facility] Qlsiqdm7564-03-98 14:38:00* Test Item Value Reference Range Interpretation Comments Urine Clarity (test code = 50203-8) CLEAR CLEAR [facility] Specific Wpilvjm7255-63-23 14:38:00 * Test Item Value Reference Range Interpretation Comments Urine Specific [place] (test code = 5811-5) 1.010 1.010-1.02 5 [facility] AustinU[facility] uL9403-48-03 14:38:00* Test Item Value Reference Range Interpretation Comments Urine pH (test code = 59975-1) 7 5-7 [facility] Leukocyte Dfbsereh5768-96-62 14:38:00* Test Item Value Reference Range Interpretation Comments Urine Leukocyte Esterase (test code = 5799-2) NEGATIVE NEGATIVE [facility] Rxxpush5104-97-83 14:38:00* Test Item Value Reference Range Interpretation Comments Urine Nitrite (test code = 47163-4) NEGATIVE NEGATIVE [facility] Wrxmvij4267-69-07 14:38:00* Test Item Value Reference Range Interpretation Comments Urine Protein (test code = 5804-0) TRACE NEGATIVE H [facility] Glucose (UA)2018-12-12 14:38:00* Test Item Value Reference Range Interpretation Comments Urine Glucose (UA) (test code = 2349-9) NEGATIVE NEGATIVE [facility] Yenknjp2757-20-86 14:38:00* Test Item Value Reference Range Interpretation Comments Urine Ketones (test code = 71158-5) NEGATIVE NEGATIVE [facility] Yomcnggycgat8874-11-66 14:38:00* Test Item Value Reference Range Interpretation Comments Urine Urobilinogen (test code = 12478-2) 0.2 0.2-1 [facility] Cxbhyverf2503-91-12 14:38:00* Test Item Value Reference Range Interpretation Comments Urine Bilirubin (test code = 1978-6) NEGATIVE NEGATIVE [facility] Jgnss0587-72-91 14:38:00* Test Item Value Reference Range Interpretation Comments Urine Blood (test code = 44277-5) NEGATIVE NEGATIVE [facility] SOR9419-58-21 14:38:00* Test Item Value Reference Range Interpretation Comments Urine WBC (test code = 5821-4) 0-5 0-5 [facility] NQG8020-40-84 14:38:00* Test Item Value Reference Range Interpretation Comments Urine RBC (test code = 64611-6) 0-5 0-5 [facility] Qowqxssg4433-11-29 14:38:00* Test Item Value Reference Range Interpretation Comments Urine Bacteria (test code = 61596-4) NONE NONE [facility] Epithelial Ahmjj6486-16-14 14:38:00 * Test Item Value Reference Range Interpretation Comments Urine Epithelial Cells (test code = 20503-5) FEW NONE [facility] Transitional Epithelial Cells 2018-12-12 14:38:00* Test Item Value Reference Range Interpretation Comments Urine Transitional Epithelial Cells (test code = 8249-5) FEW NONE [facility] Austin[facility] Hyaline Vdwmx1951-82-32 14:38:00* Test Item Value Reference Range Interpretation Comments Urine Hyaline Casts (test code = 11102-5) 6-10 0-1 H [facility] AustinCreatine Kinase AW8401-59-30 19:07:00* Test Item Value Reference Range Interpretation Comments Creatine Kinase MB (test code = 25010-5) 2.40 0-5.0 [facility] AustinTroponin L8237-38-35 19:07:00* Test Item Value Reference Range Interpretation Comments Troponin I (test code = EWX8674) 0.033 0-0.300 [facility] AustinCreat[facility] Kinase BX2553-07-32 19:07:00* Test Item Value Reference Range Interpretation Comments Creatine Kinase MB (test code = 37274-5) 2.40 0-5.0 [facility] AustinTroponin L3623-71-21 19:07:00* Test Item Value Reference Range Interpretation Comments Troponin I (test code = PAF3525) 0.033 0-0.300 [facility] AustinCreatine Oisxlb6911-47-89 18:59:00* Test Item Value Reference Range Interpretation Comments Creatine Kinase (test code = 2157-6) 59 30-200 [facility] AustinCreat[facility] Wjljej3423-64-63 18:59:00* Test Item Value Reference Range Interpretation Comments Creatine Kinase (test code = 2157-6) 59 30-200 [facility] AustinArterial Blood eF6797-01-74 05:29:00* Test Item Value Reference Range Interpretation Comments Arterial Blood pH (test code = 2744-1) 7.37 7.31-7.41 [facility] Austin[facility] Blood Partial Pressure CO2 2018-12-11 05:29:00* Test Item Value Reference Range Interpretation Comments Arterial Blood Partial Pressure CO2 (test code = 2018-8) 60 41-51 H [facility] Austin[facility] Blood Partial Pressure O2 2018-12-11 05:29:00* Test Item Value Reference Range Interpretation Comments Arterial Blood Partial Pressure O2 (test code = 2018-8) 74 80-105 [facility] YSN87903-69-84 05:29:00* Test Item Value Reference Range Interpretation Comments Arterial Blood HCO3 (test code = 1960-4) 34 23-28 [facility] Base Ctnkvv5305-50-84 05:29:00* Test Item Value Reference Range Interpretation Comments Arterial Blood Base Excess (test code = 1925-7) 10.0 -2-3 H [facility] Austin[facility] Blood Oxygen Saturation 2018-12-11 05:29:00* Test Item Value Reference Range Interpretation Comments Arterial Blood Oxygen Saturation (test code = 2708-6) 94.0 95-98 L [facility] AustinFiO22019-02-15 05:29:00* Test Item Value Reference Range Interpretation Comments FiO2 (test code = FiO2) 40 PT. ON BIPAP 40 [facility] zD1201-99-27 05:29:00* Test Item Value Reference Range Interpretation Comments Arterial Blood pH (test code = 2744-1) 7.37 7.31-7.41 [facility] Partial Pressure CO2 2018-12-11 05:29:00* Test Item Value Reference Range Interpretation Comments Arterial Blood Partial Pressure CO2 (test code = 2018-8) 60 41-51 H [facility] Austin[facility] Blood Partial Pressure O2 2018-12-11 05:29:00* Test Item Value Reference Range Interpretation Comments Arterial Blood Partial Pressure O2 (test code = 8) 74 80-105 L [facility] XAM56264-02-43 05:29:00* Test Item Value Reference Range Interpretation Comments Arterial Blood HCO3 (test code = 1960-4) 34 23-28 H [facility] Austin[facility] Blood Base Tfopxz3545-92-60 05:29:00* Test Item Value Reference Range Interpretation Comments Arterial Blood Base Excess (test code = 1925-7) 10.0 -2-3 H [facility] Blood Oxygen Saturation 2018-12-11 05:29:00* Test Item Value Reference Range Interpretation Comments Arterial Blood Oxygen Saturation (test code = 2708-6) 94.0 95-98 L [facility] AustinFi[facility]2019-[facility]-15 05:29:00* Test Item Value Reference Range Interpretation Comments FiO2 (test code = FiO2) 40 PT. ON BIPAP 40 [facility] [id number] 05:29:00* Test Item Value Reference Range Interpretation Comments Arterial Blood pH (test code = 2744-1) 7.37 7.31-7.41 [facility] Partial Pressure CO2 2018-12-11 05:29:00* Test Item Value Reference Range Interpretation Comments Arterial Blood Partial Pressure CO2 (test code = 2018-8) 60 41-51 H [facility] Austin[facility] Partial Pressure O2 2018-12-11 05:29:00* Test Item Value Reference Range Interpretation Comments Arterial Blood Partial Pressure O2 (test code = 2018-8) 74 80-105 L [facility] Austin[facility] Blood QUK79123-87-17 05:29:00* Test Item Value Reference Range Interpretation Comments Arterial Blood HCO3 (test code = 1960-4) 34 23-28 H [facility] AustinAr[facility] Blood Base Baslix0893-71-02 05:29:00* Test Item Value Reference Range Interpretation Comments Arterial Blood Base Excess (test code = 1925-7) 10.0 -2-3 H [facility] Oxygen Saturation 2018-12-11 05:29:00* Test Item Value Reference Range Interpretation Comments Arterial Blood Oxygen Saturation (test code = 2708-6) 94.0 95-98 L [facility] AustinFiO22019-02-15 05:29:00* Test Item Value Reference Range Interpretation Comments FiO2 (test code = FiO2) 40 PT. ON BIPAP 40 [facility] AustinCHES SINGLE (PORTABLE)2018-12-11 03:39:00 [place] [address] Patient Name: STEVE BENEDICT MR #: [id number] : 1945 Age/Sex: 73/M Req #: [id number] Adm Physician: Ordered by: RENAE SOLARES MD Report #: [id number] Location: ER Room/Bed: Procedure: [id number] D X/CHEST SINGLE (PORTABLE) Exam Date: 12/11/18 [...] COPY TO: RENAE SOLARES MD Lactic Acid Htmll7397-28-55 03:02:00* Test Item Value Reference Range Interpretation Comments Lactic Acid Level (test code = Lactic Acid Level) 15.9 4.5- 19.8 [facility] AustinLactic Acid Pkkka4746-51-97 03:02:00* Test Item Value Reference Range Interpretation Comments Lactic Acid Level (test code = Lactic Acid Level) 15.9 4.5- 19.8 [facility] AustinProthrombin Ctye7372-07-28 03:01:00* Test Item Value Reference Range Interpretation Comments Prothrombin Time (test code = 5902-2) 18.4 11.9-14.5 H [facility] AustinProthromb Time International Ratio 2018-12-11 03:01:00* Test Item Value Reference Range Interpretation Comments Prothromb Time International Ratio (test code = 6301-6) 1.41 Oral Anticoagulant Therapy INR Values:1. Low Intensity Therapy 1.5 - 2.02 . Moderate Intensity Therapy 2.0 - 3.03. High Intensity Therapy(1) 2.5 - 3. 54. High Intensity Therapy(2) 3.0 - 4.05. Panic Value INR > 5.0 [facility] AustinActivated Partial Thromboplast Time 2018-12-11 03:01:00* Test Item Value Reference Range Interpretation Comments Activated Partial Thromboplast Time (test code = 58492-1) 38.4 23.8-35.5 H [facility] AustinProthrombin Rkap2426-76-28 03:01:00* Test Item Value Reference Range Interpretation Comments Prothrombin Time (test code = 5902-2) 18.4 11.9-14.5 H [facility] AustinProthromb Time International Ratio 2018-12-11 03:01:00* Test Item Value Reference Range Interpretation Comments Prothromb Time International Ratio (test code = 6301-6) 1.41 Oral Anticoagulant Therapy INR Values:1. Low Intensity Therapy 1.5 - 2.02 . Moderate Intensity Therapy 2.0 - 3.03. High Intensity Therapy(1) 2.5 - 3. 54. High Intensity Therapy(2) 3.0 - 4.05. Panic Value INR > 5.0 [facility] AustinActivated Partial Thromboplast Time 2018-12-11 03:01:00* Test Item Value Reference Range Interpretation Comments Activated Partial Thromboplast Time (test code = 01677-9) 38.4 23.8-35.5 H [facility] AustinBedside Nvyzelg3246-27-46 12:16:00* Test Item Value Reference Range Interpretation Comments Bedside Glucose (test code = 85942-9) 136 70-120 H Meter ID: [id number]hamodium Level 2018-11-07 05:04:00* Test Item Value Reference Range Interpretation Comments Sodium Level (test code = 2951-2) 141 136-145 [facility] AustinPotassium Phyms1598-35-03 05:04:00* Test Item Value Reference Range Interpretation Comments Potassium Level (test code = 2823-3) 4.3 3.5-5.1 [facility] AustinChloride Kgnmd8110-26-71 05:04:00* Test Item Value Reference Range Interpretation Comments Chloride Level (test code = 2075-0) 98 98-107 [facility] AustinCarbon Dioxide Hvtsi0197-68-26 05:04:00* Test Item Value Reference Range Interpretation Comments Carbon Dioxide Level (test code = 2028-9) 34 22-29 H [facility] AustinAnion Ucr8562-36-50 05:04:00* Test Item Value Reference Range Interpretation Comments Anion Gap (test code = 05705-4) 13.3 8-16 [facility] AustinBlood Urea Mysmmrry7055-89-61 05:04:00* Test Item Value Reference Range Interpretation Comments Blood Urea Nitrogen (test code = 3094-0) 31 7-26 H [facility] AustinCreatinine2019-01-12 05:04:00* Test Item Value Reference Range Interpretation Comments Creatinine (test code = 2160-0) 1.67 0.72-1.25 H [facility] AustinBUN/Creatinine Vwqfj7694-54-59 05:04:00* Test Item Value Reference Range Interpretation Comments BUN/Creatinine Ratio (test code = 3097-3) 19 6-25 [facility] AustinEstimat Glomerular Filtration Rate 2018-11-07 05:04:00* Test Item Value Reference Range Interpretation Comments Estimat Glomerular Filtration Rate (test code = 075529357) 40 >60 L Ranges were taken from the National Kidney Disease Education Program and the [facility] Kidney Foundation literature.Reference ranges:60 or greater: Sbjgti29-29 ( for 3 consecutive months): Chronic kidney disease 15 or less: Kidney failureAsc[facility] AustinGlucose Kybtt2910-74-78 05:04:00* Test Item Value Reference Range Interpretation Comments Glucose Level (test code = UHF9746) 114 74-118 [facility] AustinCalcium Ecifn4593-66-81 05:04:00* Test Item Value Reference Range Interpretation Comments Calcium Level (test code = 31734-2) 9.2 8.4-10.2 [facility] AustinWhite Blood Maism3409-53-34 04:35:00* Test Item Value Reference Range Interpretation Comments White Blood Count (test code = 6690-2) 10.57 4.8-10.8 [facility] AustinRed Blood Pxblr7918-50-52 04:35:00* Test Item Value Reference Range Interpretation Comments Red Blood Count (test code = 789-8) 6.36 4.3-5.7 H [facility] AustinHemoglobin2019-01-12 04:35:00* Test Item Value Reference Range Interpretation Comments Hemoglobin (test code = 72745-7) 15.7 14.0-18.0 [facility] AustinHematocrit2019-01-12 04:35:00* Test Item Value Reference Range Interpretation Comments Hematocrit (test code = 4544-3) 53.4 38.2-49.6 H [facility] AustinMean Corpuscular Lpvccz6084-18-42 04:35:00* Test Item Value Reference Range Interpretation Comments Mean Corpuscular Volume (test code = 787-2) 84.0 81-99 [facility] AustinMean Corpuscular Flpnenyipw9621-44-11 04:35:00* Test Item Value Reference Range Interpretation Comments Mean Corpuscular Hemoglobin (test code = 785-6) 24.7 28-32 L [facility] AustinMean Corpuscular Hemoglobin Concent 2018-11-07 04:35:00* Test Item Value Reference Range Interpretation Comments Mean Corpuscular Hemoglobin Concent (test code = 786-4) 29.4 31-35 L [facility] AustinRed Cell Distribution Ezwuw4114-42-61 04:35:00* Test Item Value Reference Range Interpretation Comments Red Cell Distribution Width (test code = 31287-8) 20.8 11.7 -14.4 H [facility] AustinPlatelet Xadff0217-72-91 04:35:00* Test Item Value Reference Range Interpretation Comments Platelet Count (test code = 777-3) 202 140-360 [facility] AustinNeutrophils (%) (Auto)2018-11-07 04:35:00 * Test Item Value Reference Range Interpretation Comments Neutrophils (%) (Auto) (test code = 18146-1) 72.4 38.7-80.0 [facility] AustinLymphocytes (%) (Auto)2018-11-07 04:35:00 * Test Item Value Reference Range Interpretation Comments Lymphocytes (%) (Auto) (test code = 736-9) 14.7 18.0-39.1 L [facility] AustinMonocytes (%) (Auto)2018-11-07 04:35:00* Test Item Value Reference Range Interpretation Comments Monocytes (%) (Auto) (test code = 5905-5) 11.4 4.4-11.3 H [facility] AustinEosinophils (%) (Auto)2018-11-07 04:35:00 * Test Item Value Reference Range Interpretation Comments Eosinophils (%) (Auto) (test code = 713-8) 0.5 0.0-6.0 [facility] AustinBasophils (%) (Auto)2018-11-07 04:35:00* Test Item Value Reference Range Interpretation Comments Basophils (%) (Auto) (test code = 706-2) 0.6 0.0-1.0 [facility] AustinIM GRANULOCYTES %2018-11-07 04:35:00* Test Item Value Reference Range Interpretation Comments IM GRANULOCYTES % (test code = IM GRANULOCYTES %) 0.4 0.0- 1.0 [facility] AustinNeutrophils # (Auto)2018-11-07 04:35:00* Test Item Value Reference Range Interpretation Comments Neutrophils # (Auto) (test code = 751-8) 7.7 2.1-6.9 H [facility] AustinLymphocytes # (Auto)2018-11-07 04:35:00* Test Item Value Reference Range Interpretation Comments Lymphocytes # (Auto) (test code = 37350-8) 1.6 1.0-3.2 [facility] AustinMonocytes # (Auto)2018-11-07 04:35:00* Test Item Value Reference Range Interpretation Comments Monocytes # (Auto) (test code = 742-7) 1.2 0.2-0.8 H [facility] AustinEosinophils # (Auto)2018-11-07 04:35:00* Test Item Value Reference Range Interpretation Comments Eosinophils # (Auto) (test code = 711-2) 0.1 0.0-0.4 [facility] AustinBasophils # (Auto)2018-11-07 04:35:00* Test Item Value Reference Range Interpretation Comments Basophils # (Auto) (test code = 704-7) 0.1 0.0-0.1 [facility] AustinAbsolute Immature Granulocyte (auto 2018-11-07 04:35:00* Test Item Value Reference Range Interpretation Comments Absolute Immature Granulocyte (auto (bharat t code = Absolute Immature Granulocyte (auto) 0.04 0-0.1 [facility] AustinTotal Lfuldywoo6999-37-94 12:54:00* Test Item Value Reference Range Interpretation Comments Total Bilirubin (test code = 1975-2) 0.5 0.2-1.2 [facility] AustinAspartate Amino Transf (AST/SGOT) 2018-11-05 12:54:00* Test Item Value Reference Range Interpretation Comments Aspartate Amino Transf (AST/SGOT) (test code = Aspartate Amino Transf (AST/SGOT)) 19 5-34 [facility] AustinAlanine Aminotransferase (ALT/SGPT) 2018-11-05 12:54:00* Test Item Value Reference Range Interpretation Comments Alanine Aminotransferase (ALT/SGPT) (test code = 1742-6) 20 0-55 [facility] AustinTotal Gdcyfhs8932-82-13 12:54:00* Test Item Value Reference Range Interpretation Comments Total Protein (test code = 2885-2) 6.8 6.5-8.1 [facility] AustinAlbumin2019-01-10 12:54:00* Test Item Value Reference Range Interpretation Comments Albumin (test code = 1751-7) 4.0 3.5-5.0 [facility] AustinGlobulin2019-01-10 12:54:00* Test Item Value Reference Range Interpretation Comments Globulin (test code = 92178-8) 2.8 2.3-3.5 [facility] AustinAlbumin/Globulin Nilzt1786-22-84 12:54:00 * Test Item Value Reference Range Interpretation Comments Albumin/Globulin Ratio (test code = 1759-0) 1.4 0.8-2.0 [facility] AustinAlkaline Juyhucgbcsg8143-52-06 12:54:00* Test Item Value Reference Range Interpretation Comments Alkaline Phosphatase (test code = 6768-6) 87 40-150 [facility] AustinProthrombin Wblb6925-19-01 12:42:00* Test Item Value Reference Range Interpretation Comments Prothrombin Time (test code = 5902-2) 13.7 11.9-14.5 [facility] AustinProthromb Time International Ratio 2018-11-05 12:42:00* Test Item Value Reference Range Interpretation Comments Prothromb Time International Ratio (test code = 6301-6) 0.96 Oral Anticoagulant Therapy INR Values:1. Low Intensity Therapy 1.5 - 2.02 . Moderate Intensity Therapy 2.0 - 3.03. High Intensity Therapy(1) 2.5 - 3. 54. High Intensity Therapy(2) 3.0 - 4.05. Panic Value INR > 5.0 [facility] Sovfalz7538-10-02 18:31:00* Test Item Value Reference Range Interpretation Comments Blood Culture (test code = 69724711) NO GROWTH AFTER 5 DAYS, FINAL REPORT [facility] Seohsdi2509-23-20 13:27:00* Test Item Value Reference Range Interpretation Comments Urine Culture (test code = 630-4) Organism: ESCHERICHIA COLI-ESBL [facility] Vaqyfmn8701-53-54 13:27:00* Test Item Value Reference Range Interpretation Comments Urine Culture (test code = 630-4) Organism: ESCHERICHIA COLI-ESBL [facility] Qpgfhtt7350-26-85 13:27:00* Test Item Value Reference Range Interpretation Comments Urine Culture (test code = 630-4) Organism: ESCHERICHIA COLI-ESBL [facility] Dshjfbq4373-44-64 13:27:00* Test Item Value Reference Range Interpretation Comments Urine Culture (test code = 630-4) Organism: ESCHERICHIA COLI-ESBL [facility]hamodium Teqvp3369-14-34 09:35:00* Test Item Value Reference Range Interpretation Comments Sodium Level (test code = 2951-2) 138 136-145 [facility] AustinPotassium Lhwmi4074-03-45 09:35:00* Test Item Value Reference Range Interpretation Comments Potassium Level (test code = 2823-3) 3.8 3.5-5.1 [facility] AustinChloride Sweac3442-35-46 09:35:00* Test Item Value Reference Range Interpretation Comments Chloride Level (test code = 2075-0) 93 98-107 L [facility] AustinCarbon Dioxide Aesqb0414-77-85 09:35:00* Test Item Value Reference Range Interpretation Comments Carbon Dioxide Level (test code = 2028-9) 36 22-29 H [facility] AustinAnion Ovu0704-72-35 09:35:00* Test Item Value Reference Range Interpretation Comments Anion Gap (test code = 23188-1) 12.8 8-16 [facility] AustinBlood Urea Mlaujctr8889-66-01 09:35:00* Test Item Value Reference Range Interpretation Comments Blood Urea Nitrogen (test code = 3094-0) 24 7-26 [facility] AustinCreatinine2018-11-21 09:35:00* Test Item Value Reference Range Interpretation Comments Creatinine (test code = 2160-0) 1.60 0.72-1.25 H [facility] AustinBUN/Creatinine Ceogb5070-76-86 09:35:00* Test Item Value Reference Range Interpretation Comments BUN/Creatinine Ratio (test code = 3097-3) 15 6- [facility] AustinEstimat Glomerular Filtration Rate 2018-09-16 09:35:00* Test Item Value Reference Range Interpretation Comments Estimat Glomerular Filtration Rate (test code = 728558619) 42 >60 L Ranges were taken from the National Kidney Disease Education Program and the [facility] Kid[facility] Foundation literature.Reference ranges:60 or greater: Pkobmo05-07 ( for 3 consecutive months): Chronic kidney disease 15 or less: Kidney failureAsc[facility] AustinGlucose Sffwt5659-73-09 09:35:00* Test Item Value Reference Range Interpretation Comments Glucose Level (test code = JCQ6611) 151 74-118 H [facility] AustinCalcium Gxuan7145-94-13 09:35:00* Test Item Value Reference Range Interpretation Comments Calcium Level (test code = 72771-0) 9.6 8.4-10.2 [facility] AustinBedside Zwbfhhv1661-63-77 08:21:00* Test Item Value Reference Range Interpretation Comments Bedside Glucose (test code = 56873-3) 95 70-120 Meter ID: [id number] [facility] 2018-09-16 03:38:00* Test Item Value Reference Range Interpretation Comments Magnesium Level (test code = 20089-3) 2.3 1.3-2.1 H [facility]2018-11-21 03:38:00* Test Item Value Reference Range Interpretation Comments Magnesium Level (test code = 61063-4) 2.3 1.3-2.1 H [facility]2018-11-21 03:38:00* Test Item Value Reference Range Interpretation Comments Magnesium Level (test code = 45359-3) 2.3 1.3-2.1 H [facility]2018-11-21 03:38:00* Test Item Value Reference Range Interpretation Comments Magnesium Level (test code = 04279-4) 2.3 1.3-2.1 H [facility]2018-11-21 03:38:00* Test Item Value Reference Range Interpretation Comments Magnesium Level (test code = 66034-3) 2.3 1.3-2.1 H [facility] AustinWhite Blood Qbrec9287-94-33 03:22:00* Test Item Value Reference Range Interpretation Comments White Blood Count (test code = 6690-2) 7.70 4.8-10.8 [facility] AustinRed Blood Bfzlg0592-75-51 03:22:00* Test Item Value Reference Range Interpretation Comments Red Blood Count (test code = 789-8) 6.27 4.3-5.7 H [facility] AustinHemoglobin2018-11-21 03:22:00* Test Item Value Reference Range Interpretation Comments Hemoglobin (test code = 59114-5) 14.9 14.0-18.0 [facility] AustinHematocrit2018-11-21 03:22:00* Test Item Value Reference Range Interpretation Comments Hematocrit (test code = 4544-3) 52.0 38.2-49.6 H [facility] AustinMean Corpuscular Dzgjke2838-19-12 03:22:00* Test Item Value Reference Range Interpretation Comments Mean Corpuscular Volume (test code = 787-2) 82.9 81-99 [facility] AustinMean Corpuscular Iynmijfwar2931-83-64 03:22:00* Test Item Value Reference Range Interpretation Comments Mean Corpuscular Hemoglobin (test code = 785-6) 23.8 28-32 L [facility] AustinMean Corpuscular Hemoglobin Concent 2018-09-16 03:22:00* Test Item Value Reference Range Interpretation Comments Mean Corpuscular Hemoglobin Concent (test code = 786-4) 28.7 31-35 L [facility] AustinRed Cell Distribution Nltij1519-93-38 03:22:00* Test Item Value Reference Range Interpretation Comments Red Cell Distribution Width (test code = 23426-1) 18.5 11.7 -14.4 H [facility] AustinPlatelet Plgvo0239-59-57 03:22:00* Test Item Value Reference Range Interpretation Comments Platelet Count (test code = 777-3) 254 140-360 [facility] AustinNeutrophils (%) (Auto)2018-09-16 03:22:00 * Test Item Value Reference Range Interpretation Comments Neutrophils (%) (Auto) (test code = 27795-6) 66.2 38.7-80.0 [facility] AustinLymphocytes (%) (Auto)2018-09-16 03:22:00 * Test Item Value Reference Range Interpretation Comments Lymphocytes (%) (Auto) (test code = 736-9) 17.0 18.0-39.1 L [facility] AustinMonocytes (%) (Auto)2018-09-16 03:22:00* Test Item Value Reference Range Interpretation Comments Monocytes (%) (Auto) (test code = 5905-5) 12.2 4.4-11.3 H [facility] AustinEosinophils (%) (Auto)2018-09-16 03:22:00 * Test Item Value Reference Range Interpretation Comments Eosinophils (%) (Auto) (test code = 713-8) 3.2 0.0-6.0 [facility] AustinBasophils (%) (Auto)2018-09-16 03:22:00* Test Item Value Reference Range Interpretation Comments Basophils (%) (Auto) (test code = 706-2) 0.9 0.0-1.0 [facility] AustinIM GRANULOCYTES %2018-09-16 03:22:00* Test Item Value Reference Range Interpretation Comments IM GRANULOCYTES % (test code = IM GRANULOCYTES %) 0.5 0.0- 1.0 [facility] AustinNeutrophils # (Auto)2018-09-16 03:22:00* Test Item Value Reference Range Interpretation Comments Neutrophils # (Auto) (test code = 751-8) 5.1 2.1-6.9 [facility] AustinLymphocytes # (Auto)2018-09-16 03:22:00* Test Item Value Reference Range Interpretation Comments Lymphocytes # (Auto) (test code = 30939-3) 1.3 1.0-3.2 [facility] AustinMonocytes # (Auto)2018-09-16 03:22:00* Test Item Value Reference Range Interpretation Comments Monocytes # (Auto) (test code = 742-7) 0.9 0.2-0.8 H [facility] AustinEosinophils # (Auto)2018-09-16 03:22:00* Test Item Value Reference Range Interpretation Comments Eosinophils # (Auto) (test code = 711-2) 0.3 0.0-0.4 [facility] AustinBasophils # (Auto)2018-09-16 03:22:00* Test Item Value Reference Range Interpretation Comments Basophils # (Auto) (test code = 704-7) 0.1 0.0-0.1 [facility] AustinAbsolute Immature Granulocyte (auto 2018-09-16 03:22:00* Test Item Value Reference Range Interpretation Comments Absolute Immature Granulocyte (auto (bharat t code = Absolute Immature Granulocyte (auto) 0.04 0-0.1 [facility] AustinBlood Ihhyysw8337-88-23 18:32:00* Test Item Value Reference Range Interpretation Comments Blood Culture (test code = 06850853) NO GROWTH AFTER 48 HOURS [facility] AustinProthrombin Land6819-46-63 16:25:00* Test Item Value Reference Range Interpretation Comments Prothrombin Time (test code = 5902-2) 21.4 11.9-14.5 H [facility] AustinProthromb Time International Ratio 2018-09-15 16:25:00* Test Item Value Reference Range Interpretation Comments Prothromb Time International Ratio (test code = 6301-6) 1.71 Oral Anticoagulant Therapy INR Values:1. Low Intensity Therapy 1.5 - 2.02 . Moderate Intensity Therapy 2.0 - 3.03. High Intensity Therapy(1) 2.5 - 3. 54. High Intensity Therapy(2) 3.0 - 4.05. Panic Value INR > 5.0 [facility] AustinPlatelet Hfgxiokw9181-09-46 09:15:00* Test Item Value Reference Range Interpretation Comments Platelet Estimate (test code = 23454-2) ADEQUATE [facility] AustinLarge Bfbxspghz6359-99-12 09:15:00* Test Item Value Reference Range Interpretation Comments Large Platelets (test code = 5908-9) FEW [facility] AustinPlatelet Morphology Svcexbg1539-37-93 09:15:00* Test Item Value Reference Range Interpretation Comments Platelet Morphology Comment (test code = 58058-2) NORMAL [facility] AustinHypochromasia2018-11-20 09:15:00* Test Item Value Reference Range Interpretation Comments Hypochromasia (test code = 728-6) SLIGHT [facility] AustinOvalocytes2018-11-20 09:15:00* Test Item Value Reference Range Interpretation Comments Ovalocytes (test code = 774-0) FEW [facility] AustinRed Cell Morphology Fdwrqph7764-81-21 09:15:00* Test Item Value Reference Range Interpretation Comments Red Cell Morphology Comment (test code = 6742-1) NORMAL [facility] AustinPlatelet Cavdrkro5107-86-80 09:15:00* Test Item Value Reference Range Interpretation Comments Platelet Estimate (test code = 78336-4) ADEQUATE [facility] AustinLarge Xohvzuljl3501-75-91 09:15:00* Test Item Value Reference Range Interpretation Comments Large Platelets (test code = 5908-9) FEW [facility] AustinPlatelet Morphology Dpqvxup4298-76-66 09:15:00* Test Item Value Reference Range Interpretation Comments Platelet Morphology Comment (test code = 23618-1) NORMAL [facility] AustinHypochromasia2018-11-20 09:15:00* Test Item Value Reference Range Interpretation Comments Hypochromasia (test code = 728-6) SLIGHT [facility] AustinOvalocytes2018-11-20 09:15:00* Test Item Value Reference Range Interpretation Comments Ovalocytes (test code = 774-0) FEW [facility] AustinRed Cell Morphology Axsjwkh5074-93-51 09:15:00* Test Item Value Reference Range Interpretation Comments Red Cell Morphology Comment (test code = 6742-1) NORMAL [facility] AustinPlatelet Bfvwmhut3469-45-97 09:15:00* Test Item Value Reference Range Interpretation Comments Platelet Estimate (test code = 91076-9) ADEQUATE [facility] AustinLapaul[facility] Ebzkxswnx4638-87-54 09:15:00* Test Item Value Reference Range Interpretation Comments Large Platelets (test code = 5908-9) FEW [facility] AustinPlatelet Morphology Tgyiptn4490-50-83 09:15:00* Test Item Value Reference Range Interpretation Comments Platelet Morphology Comment (test code = 18435-2) NORMAL [facility] AustinHypochromasia2018-11-20 09:15:00* Test Item Value Reference Range Interpretation Comments Hypochromasia (test code = 728-6) SLIGHT [facility] AustinOvalocytes2018-11-20 09:15:00* Test Item Value Reference Range Interpretation Comments Ovalocytes (test code = 774-0) FEW [facility] AustinRed Cell Morphology Wzkftoh3743-71-38 09:15:00* Test Item Value Reference Range Interpretation Comments Red Cell Morphology Comment (test code = 6742-1) NORMAL [facility] AustinPlatelet Hijrdjub6613-37-14 09:15:00* Test Item Value Reference Range Interpretation Comments Platelet Estimate (test code = 03423-3) ADEQUATE [facility] AustinLarge Dqcguurrg4999-70-52 09:15:00* Test Item Value Reference Range Interpretation Comments Large Platelets (test code = 5908-9) FEW [facility] AustinPlatelet Morphology Euavzoa0736-98-32 09:15:00* Test Item Value Reference Range Interpretation Comments Platelet Morphology Comment (test code = 28493-2) NORMAL [facility] AustinHypochromasia2018-11-20 09:15:00* Test Item Value Reference Range Interpretation Comments Hypochromasia (test code = 728-6) SLIGHT [facility] AustinOvalocytes2018-11-20 09:15:00* Test Item Value Reference Range Interpretation Comments Ovalocytes (test code = 774-0) FEW [facility] AustinRed Cell Morphology Zbokdow9052-72-94 09:15:00* Test Item Value Reference Range Interpretation Comments Red Cell Morphology Comment (test code = 6742-1) NORMAL [facility] AustinPlatelet Vqtwegeo3509-62-55 09:15:00* Test Item Value Reference Range Interpretation Comments Platelet Estimate (test code = 55284-6) ADEQUATE [facility] AustinLarge Cckukhzmr2423-39-40 09:15:00* Test Item Value Reference Range Interpretation Comments Large Platelets (test code = 5908-9) FEW [facility] AustinPlatelet Morphology Jnsihdh1899-71-00 09:15:00* Test Item Value Reference Range Interpretation Comments Platelet Morphology Comment (test code = 56185-0) NORMAL [facility] AustinHypochromasia2018-11-20 09:15:00* Test Item Value Reference Range Interpretation Comments Hypochromasia (test code = 728-6) SLIGHT [facility] AustinOvalocytes2018-11-20 09:15:00* Test Item Value Reference Range Interpretation Comments Ovalocytes (test code = 774-0) FEW [facility] AustinRed Cell Morphology Azjfsff4507-05-32 09:15:00* Test Item Value Reference Range Interpretation Comments Red Cell Morphology Comment (test code = 6742-1) NORMAL [facility] Aanykhtze7994-69-86 09:15:00* Test Item Value Reference Range Interpretation Comments Large Platelets (test code = 5908-9) FEW [facility] AustinHypochromasia2018-11-20 09:15:00* Test Item Value Reference Range Interpretation Comments Hypochromasia (test code = 728-6) SLIGHT [facility] AustinOvalocytes2018-11-20 09:15:00* Test Item Value Reference Range Interpretation Comments Ovalocytes (test code = 774-0) FEW [facility] Ndtyudygq3659-68-81 09:15:00* Test Item Value Reference Range Interpretation Comments Large Platelets (test code = 5908-9) FEW [facility] AustinHypochromasia2018-11-20 09:15:00* Test Item Value Reference Range Interpretation Comments Hypochromasia (test code = 728-6) SLIGHT [facility] AustinOvalocytes2018-11-20 09:15:00* Test Item Value Reference Range Interpretation Comments Ovalocytes (test code = 774-0) FEW [facility] Qgytnazdt3147-07-91 09:15:00* Test Item Value Reference Range Interpretation Comments Large Platelets (test code = 5908-9) [facility]W [facility]-20 09:15:00* Test Item Value Reference Range Interpretation Comments Hypochromasia (test code = 728-6) SLIGHT [facility] AustinOvalocytes2018-11-20 09:15:00* Test Item Value Reference Range Interpretation Comments Ovalocytes (test code = 774-0) FEW [facility] Bshxlidkv6547-61-72 09:15:00* Test Item Value Reference Range Interpretation Comments Large Platelets (test code = 5908-9) FEW [facility] AustinHypochromasia2018-11-20 09:15:00* Test Item Value Reference Range Interpretation Comments Hypochromasia (test code = 728-6) SLIGHT [facility] AustinOvalocytes2018-11-20 09:15:00* Test Item Value Reference Range Interpretation Comments Ovalocytes (test code = 774-0) FEW [facility] AustinLarge Mceuoexty4600-46-99 09:15:00* Test Item Value Reference Range Interpretation Comments Large Platelets (test code = 5908-9) FEW [facility] AustinHypochromasia2018-11-20 09:15:00* Test Item Value Reference Range Interpretation Comments Hypochromasia (test code = 728-6) SLIGHT [facility] AustinOvalocytes2018-11-20 09:15:00* Test Item Value Reference Range Interpretation Comments Ovalocytes (test code = 774-0) FEW [facility] AustinUrine Tvubxlb4518-21-46 07:51:00* Test Item Value Reference Range Interpretation Comments Urine Culture (test code = 630-4) Organism: ESCHERICHIA COLI-ESBL [facility] AustinB-Type Natriuretic Xqcdncm4599-25-32 07:47:00* Test Item Value Reference Range Interpretation Comments B-Type Natriuretic Peptide (test code = 96569-3) 157.9 0-100 H [facility] AustinB-Type Natriuretic Kkrizib4468-72-73 07:47:00* Test Item Value Reference Range Interpretation Comments B-Type Natriuretic Peptide (test code = 44226-7) 157.9 0-100 H [facility] AustinThyroid Stimulating Hormone (TSH) 2018-09-15 06:12:00* Test Item Value Reference Range Interpretation Comments Thyroid Stimulating Hormone (TSH) (test code = 99218-3) 1.609 0.350-4.940 [facility] AustinThyroid Stimulating Hormone (TSH) 2018-09-15 06:12:00* Test Item Value Reference Range Interpretation Comments Thyroid Stimulating Hormone (TSH) (test code = 49221-5) 1.609 0.350-4.940 [facility] AustinThyroid Stimulating Hormone (TSH) 2018-09-15 06:12:00* Test Item Value Reference Range Interpretation Comments Thyroid Stimulating Hormone (TSH) (test code = 75828-9) 1.609 0.350-4.940 [facility] AustinThyroid Stimulating Hormone (TSH) 2018-09-15 06:12:00* Test Item Value Reference Range Interpretation Comments Thyroid Stimulating Hormone (TSH) (test code = 15935-9) 1.609 0.350-4.940 [facility] AustinThyroid Stimulating Hormone (TSH) 2018-09-15 06:12:00* Test Item Value Reference Range Interpretation Comments Thyroid Stimulating Hormone (TSH) (test code = 00127-2) 1.609 0.350-4.940 [facility] AustinCreatine Kinase HS7719-64-97 14:14:00* Test Item Value Reference Range Interpretation Comments Creatine Kinase MB (test code = 20241-8) 2.60 0-5.0 [facility]Tr[facility] [place] J9362-81-63 14:14:00* Test Item Value Reference Range Interpretation Comments Troponin I (test code = HDR0126) 0.009 0-0.300 [facility] AustinCreatine Kinase SZ7248-37-84 14:14:00* Test Item Value Reference Range Interpretation Comments Creatine Kinase MB (test code = 77163-6) 2.60 0-5.0 [facility] Q0300-94-52 14:14:00* Test Item Value Reference Range Interpretation Comments Troponin I (test code = SWS4985) 0.009 0-0.300 [facility] AustinCreatine Awleno4148-89-80 14:08:00* Test Item Value Reference Range Interpretation Comments Creatine Kinase (test code = 2157-6) 74 30-200 [facility] AustinCreatine Scdytg6138-92-77 14:08:00* Test Item Value Reference Range Interpretation Comments Creatine Kinase (test code = 2157-6) 74 30-200 [facility] AustinCHEST SINGLE (PORTABLE)2018-09-14 06:27:00 [place] [address] Patient Name: STEVE BENEDICT MR #: [id number] : 1945 Age/Sex: 73/M Req #: [id number] Adm Physician: ROSALIE SHORT MD Ordered by: IBAN RAMOS MD Report #: [id number] Location: MED/SURG Room/Bed: [facility] Procedure: [id number] DX /CHEST SINGLE (PORTABLE) Exam Date: 09/14/18 [...] COPY TO: IBAN FRASER MD CHEST 2 BZOZU7616-42-74 19:32:00 [place] [address] Patient Name: STEVE BENEDICT MR #: [id number] : 1945 Age/Sex: 73/M Req #: [id number] Adm Physician: Ordered by: JAIR RESENDEZ PAYROLL CLERK Report #: [id number] Location: ER Room/Bed: Procedure: [id number] DX/CHEST 2 VIEWS Exam Date: Exam Time: [...] ERAN on 09/13/181933 COPY TO: JAIR RESENDEZ PAYROLL CLERK Urine Pcxbr5411-82-76 18:07:00* Test Item Value Reference Range Interpretation Comments Urine Color (test code = 5778-6) YELLOW YELLOW [facility] AustinUrine Ulocfqf6608-79-40 18:07:00* Test Item Value Reference Range Interpretation Comments Urine Clarity (test code = 26611-9) HAZY CLEAR [facility] AustinUrine ZBX0312-65-04 18:07:00* Test Item Value Reference Range Interpretation Comments Urine WBC (test code = 5821-4) 21-50 0-5 H [facility] AustinUrine IZZ9954-19-59 18:07:00* Test Item Value Reference Range Interpretation Comments Urine RBC (test code = 41749-7) 0-5 0-5 [facility] AustinUrine Yjlqgjkh0647-01-28 18:07:00* Test Item Value Reference Range Interpretation Comments Urine Bacteria (test code = 20663-3) MANY NONE H [facility] AustinUrine Epithelial Mmukm4847-53-83 18:07:00 * Test Item Value Reference Range Interpretation Comments Urine Epithelial Cells (test code = 12613-8) FEW NONE [facility] AustinTotal Lzubatbdf4287-85-83 18:07:00* Test Item Value Reference Range Interpretation Comments Total Bilirubin (test code = 1975-2) 0.3 0.2-1.2 [facility] AustinAspartate Amino Transf (AST/SGOT) 2018-09-13 18:07:00* Test Item Value Reference Range Interpretation Comments Aspartate Amino Transf (AST/SGOT) (test code = Aspartate Amino Transf (AST/SGOT)) 13 5-34 [facility] AustinAlanine Aminotransferase (ALT/SGPT) 2018-09-13 18:07:00* Test Item Value Reference Range Interpretation Comments Alanine Aminotransferase (ALT/SGPT) (test code = 1742-6) 18 0-55 [facility] AustinTotal Knqyewv8257-39-11 18:07:00* Test Item Value Reference Range Interpretation Comments Total Protein (test code = 2885-2) 6.7 6.5-8.1 [facility] AustinAlbumin2018-11-18 18:07:00* Test Item Value Reference Range Interpretation Comments Albumin (test code = 1751-7) 3.3 3.5-5.0 L [facility] AustinGlobulin2018-11-18 18:07:00* Test Item Value Reference Range Interpretation Comments Globulin (test code = 67680-5) 3.4 2.3-3.5 [facility] AustinAlbumin/Globulin Gauem8396-50-81 18:07:00 * Test Item Value Reference Range Interpretation Comments Albumin/Globulin Ratio (test code = 1759-0) 1.0 0.8-2.0 [facility] AustinAlkaline Ffoloksmapv0817-24-89 18:07:00* Test Item Value Reference Range Interpretation Comments Alkaline Phosphatase (test code = 6768-6) 78 40-150 [facility] AustinUrine Gbtpp4915-83-07 18:07:00* Test Item Value Reference Range Interpretation Comments Urine Color (test code = 5778-6) YELLOW YELLOW [facility] AustinUrine Ezogvgq0926-68-96 18:07:00* Test Item Value Reference Range Interpretation Comments Urine Clarity (test code = 11000-0) HAZY CLEAR [facility] AustinUrine TLC0014-94-87 18:07:00* Test Item Value Reference Range Interpretation Comments Urine WBC (test code = 5821-4) 21-50 0-5 H [facility] AustinUrine PLW4779-92-38 18:07:00* Test Item Value Reference Range Interpretation Comments Urine RBC (test code = 30261-8) 0-5 0-5 [facility] AustinUrine Xotsqbgm9008-38-24 18:07:00* Test Item Value Reference Range Interpretation Comments Urine Bacteria (test code = 32588-3) MANY NONE H [facility] AustinUrine Epithelial Omsme5275-22-47 18:07:00 * Test Item Value Reference Range Interpretation Comments Urine Epithelial Cells (test code = 20342-9) FEW NONE [facility] AustinLactic Acid Qlkjs9353-51-84 18:05:00* Test Item Value Reference Range Interpretation Comments Lactic Acid Level (test code = Lactic Acid Level) 13.7 4.5- 19.8 [facility] AustinLactic Acid Rejry7719-17-84 18:05:00* Test Item Value Reference Range Interpretation Comments Lactic Acid Level (test code = Lactic Acid Level) 13.7 4.5- 19.8 [facility] AustinUrine Specific Mavzgqm2095-42-57 18:04:00 * Test Item Value Reference Range Interpretation Comments Urine Specific [place] (test code = 5811-5) 1.015 1.010-1.02 5 [facility] AustinUrine wX8399-54-96 18:04:00* Test Item Value Reference Range Interpretation Comments Urine pH (test code = 27317-8) 6 5-7 [facility] AustinUrine Leukocyte Mhapdrbs7225-17-99 18:04:00* Test Item Value Reference Range Interpretation Comments Urine Leukocyte Esterase (test code = 5799-2) TRACE NEGATIVE H [facility] AustinUrine Ckqzawz7034-26-11 18:04:00* Test Item Value Reference Range Interpretation Comments Urine Nitrite (test code = 81156-8) POSITIVE NEGATIVE H [facility] AustinUrine Phiwiec0835-96-56 18:04:00* Test Item Value Reference Range Interpretation Comments Urine Protein (test code = 5804-0) NEGATIVE NEGATIVE [facility] AustinUrine Glucose (UA)2018-09-13 18:04:00* Test Item Value Reference Range Interpretation Comments Urine Glucose (UA) (test code = 2349-9) NEGATIVE NEGATIVE [facility] AustinUrine Vggqwxr1727-52-08 18:04:00* Test Item Value Reference Range Interpretation Comments Urine Ketones (test code = 77356-5) NEGATIVE NEGATIVE [facility] AustinUrine Sekevmqvbkts9716-93-17 18:04:00* Test Item Value Reference Range Interpretation Comments Urine Urobilinogen (test code = 98305-1) 0.2 0.2-1 [facility] AustinUrine Cqlxpugov1657-53-98 18:04:00* Test Item Value Reference Range Interpretation Comments Urine Bilirubin (test code = 1978-6) NEGATIVE NEGATIVE [facility] AustinUrine Scmni6025-53-32 18:04:00* Test Item Value Reference Range Interpretation Comments Urine Blood (test code = 77184-4) NEGATIVE NEGATIVE [facility] AustinUrine Specific Ntmusuv4548-94-89 18:04:00 * Test Item Value Reference Range Interpretation Comments Urine Specific [place] (test code = 5811-5) 1.015 1.010-1.02 5 [facility] AustinUrine xW0503-85-81 18:04:00* Test Item Value Reference Range Interpretation Comments Urine pH (test code = 20339-6) 6 5-7 [facility] AustinUrine Leukocyte Znyvleet1465-04-91 18:04:00* Test Item Value Reference Range Interpretation Comments Urine Leukocyte Esterase (test code = 5799-2) TRACE NEGATIVE H [facility] AustinUrine Mxxcdzt7478-74-45 18:04:00* Test Item Value Reference Range Interpretation Comments Urine Nitrite (test code = 56825-0) POSITIVE NEGATIVE H [facility] AustinUrine Lipprbh0346-90-72 18:04:00* Test Item Value Reference Range Interpretation Comments Urine Protein (test code = 5804-0) NEGATIVE NEGATIVE [facility] AustinUrine Glucose (UA)2018-09-13 18:04:00* Test Item Value Reference Range Interpretation Comments Urine Glucose (UA) (test code = 2349-9) NEGATIVE NEGATIVE [facility] AustinUrine Hqxbdrg3176-08-40 18:04:00* Test Item Value Reference Range Interpretation Comments Urine Ketones (test code = 56863-0) NEGATIVE NEGATIVE [facility] AustinUrine Qhvquwpdwxjd8906-39-65 18:04:00* Test Item Value Reference Range Interpretation Comments Urine Urobilinogen (test code = 75681-6) 0.2 0.2-1 [facility] AustinUrine Sywsklzxc6392-05-72 18:04:00* Test Item Value Reference Range Interpretation Comments Urine Bilirubin (test code = 1978-6) NEGATIVE NEGATIVE [facility] AustinUrine Eslyv7330-31-14 18:04:00* Test Item Value Reference Range Interpretation Comments Urine Blood (test code = 24600-8) NEGATIVE NEGATIVE [facility] AustinActivated Partial Thromboplast Time 2018-09-13 18:01:00* Test Item Value Reference Range Interpretation Comments Activated Partial Thromboplast Time (test code = 47398-1) 43.2 23.8-35.5 H [facility] AustinActivated Partial Thromboplast Time 2018-09-13 18:01:00* Test Item Value Reference Range Interpretation Comments Activated Partial Thromboplast Time (test code = 49006-3) 43.2 23.8-35.5 H [facility] AustinCHEST SINGLE ([facility]ABLE)2018-09-13 17:32:00 [facility] [place] [address] Patient Name: STEVE BENEDICT MR #: [id number] : 1945 Age/Sex: 73/M Req #: [id number] Adm Physician: Ordered by: IBAN RAMOS MD Report #: [id number] Location: ER Room/Bed: Procedure: [id number] DX/ CHEST SINGLE (PORTABLE) Exam Date: 09/13/18 [...] MD GASTRIC,BIOPSY 2018-08-21 11:54:00 RUN DATE: 08/21/18 [facility] PAGE 1 RUN TIME: 1154 Specimen Inqui ry RUN USER: INTERFACE PATIENT: STEVE BENEDICT ACCT #: V [id number] LOC: SoteroDaltonDONGU U #: [id number] AGE/SX: 72/M ROOM: RE08/20/18REG DR: Mauro Pan MD : 43 BED: DIS: STATUS: [facility] TLOC: SPEC #: [id number] RECD: 08/20/18 STATUS: AROLDO SHANNON #: [id number] [place]: 08/20/[address] [facility] [address]: Mauro Pan MD ENTERED: 08/20/18 SP TYPE: GASTRIC BX OTHR DR: Teofilo Summers MD ORDERED: GROSS COPIES TO: Mauro Pan MD [address] [facility] [place] [address] Teofilo Summers MD [address] [place] [address] PROCEDURES: GROSS (08/21/18-1147) TIS SUES: 1. ANTRUM [...] TO FOLLOW NEGATIVE FOR MALIGNANCY RRB/sm D 39923, 88 688, 73858 CONTINUED ON NEXT PAGE --------- ---RUN DATE: 08/21/18 [facility] PAGE 2 RUN TIME: 1154 Specimen Inquiry RUN USER: INTERFACE SPEC #: [id number] PATIENT: STEVE BENEDICT #[id number] (Continued) MACROSCOPIC The sp ecimen is received in formalin, labeled with the patient's name and identified as "gastric bx". It consists of ballesteros biopsy material measuring 0.5 cm in aggr egate. An H E and a Giemsa stain will be prepared. GROSS PERFORMED AT [facility] [address] [facility], [place], [place] [address] (P)[phone] MICROSCOPIC MICROSCOPIC PERFORMED AT [facility] All of the stains, including any controls performed, stain a ppropriately. [facility] [address] [facility], [place] [address] (P)[phone] PERFORMING SITE Diagnosis performed at: [facility], [place] [address] [place] [address] Signed SIGNATURE ON FILE Bon Spivey 08/21/18 1154 END OF REPORT GASTRIC,IMTJAQ2516-74-56 11:54:00 RUN DATE: 08/25/18 [facility] PAGE 1 RUN TIME: 1157 Specimen Inqui ry RUN USER: INTERFACE PATIENT: STEVE BENEDICT ACCT #: V [id number] LOC: SYDNIEU U #: [id number] AGE/SX: 72/M ROOM: RE08/20/18REG DR: Mauro Pan MD : 43 BED: DIS: STATUS: [facility] TLOC: SPEC #: [id number] RECD: 08/20/18 STATUS: AROLDO MIRTHA #: [id number] H[place]DEN: 08/20/[address] [facility] [address]: Mauro Pan MD ENTERED: 08/20/18 SP TYPE: GASTRIC BX OTHR DR: Teofilo Summers MD ORDERED: GROSS COPIES TO: Mauro Pan MD [address] [place], [place] [id number] Teofilo Summers MD [address] [place], [place] [address] PROCEDURES: GROSS (08/21/18) TIS SUES: 1. ANTRUM - BX ADDENDUM FINDINGS Addendum #1 Entered: 08/25/18 Paraffin embedded tissue was submitted to [facility] for an immunoperoxidase stain for Helicobacter pylori. The slide is reviewed at [facility]. No Helicobacter organisms are identified by immunoperoxidase st n. The original diagnosis remains otherwise unchanged. Addendum Signed SIGN ATURE ON FILE Bon Spivey 08/25/18 1157 CLINICAL HISTORY COLLECTION DATE: 08/20/2018 FOLLOW UP FOR ULCERS POST-OP DIAGNOSIS: MILD GASTRITIS CONTINUED ON NEXT PAGE RUN DATE: 08/25/18 [facility] PAGE 2 RUN TIME: 1157 Specimen Inquiry RUN USER: INTERFACE SPEC #: [id number] EDIN ENT: STEVE BENEDICT #[id number] (Continued) FINAL DIAGNOSIS Gastric tissue, cold biopsy: REACTIVE GASTROPATHY SEPARATE FRAGMENTS OF GASTRIC MUCOSA WITH NO SIGNIFICANT PATHO LOGIC ALTERATION NO ACUTE INFLAMMATORY INFILTRATE PRESENT NEGATIVE FOR INTESTINAL METAPLASIA FEW COCCOID STRUCTURES IDENTIFIED BY GIEMSA ST CHISHOLM IMMUNOPEROXIDASE STAIN FOR HELICOBACTER PYLORI PENDING, ADD ENDUM REPORT TO FOLLOW NEGATIVE FOR MALIGNANCY RRB/sm D 886 05, [address]231, [address] MACROSCOPIC The specimen is received in formalin, labeled with the patient's name and identified as "gastric bx". It consists o f ballesteros biopsy material measuring 0.5 cm in aggregate. An H E and a Giemsa stain will be prepared. GROSS PERFORMED AT [facility] [address] [place] [address] [phone])[phone] MICROSCOPIC MICROSCOPIC PERFORMED AT [facility] All of the sta ins, including any controls performed, stain appropriately. [facility] [address] [place] [address] (P)[phone] PE RFORMING SITE Diagnosis performed at: [facility], [place] [address] [place] [address] CONTINUED ON NEXT PAGE RUN DATE: [facility] PAGE 3 RUN TIME: 1157 Specimen Inquiry R UN USER: INTERFACE --- ---------SPEC #: [id number] PATIENT: STEVE BENEDICT #[id number] (Continued) Signed SIGNATURE ON FILE Bon Spivey 08/21/18 1154 END OF REPORT Bedside Ctrzfox2580-19-59 11:36:00* Test Item Value Reference Range Interpretation Comments Bedside Glucose (test code = 98902-2) 98 70-120 Meter ID: [id number] Scott [facility]hamodium Level 2018-08-05 06:01:00* Test Item Value Reference Range Interpretation Comments Sodium Level (test code = 2951-2) 139 136-145 [facility] AustinPotassium Caquv1801-68-85 06:01:00* Test Item Value Reference Range Interpretation Comments Potassium Level (test code = 2823-3) 5.3 3.5-5.1 H [facility] AustinChloride Ktnko4498-14-92 06:01:00* Test Item Value Reference Range Interpretation Comments Chloride Level (test code = 2075-0) 98 98-107 [facility] AustinCarbon Dioxide Owtyj8454-67-56 06:01:00* Test Item Value Reference Range Interpretation Comments Carbon Dioxide Level (test code = 2028-9) 33 22-29 H [facility] AustinAnion Pja9104-29-63 06:01:00* Test Item Value Reference Range Interpretation Comments Anion Gap (test code = 96389-0) 13.3 8-16 [facility] AustinBlood Urea Goizbivf9247-63-38 06:01:00* Test Item Value Reference Range Interpretation Comments Blood Urea Nitrogen (test code = 3094-0) 26 7-26 [facility] AustinCreatinine2018-10-10 06:01:00* Test Item Value Reference Range Interpretation Comments Creatinine (test code = 2160-0) 1.85 0.72-1.25 H [facility] AustinBUN/Creatinine Iicnq8520-87-43 06:01:00* Test Item Value Reference Range Interpretation Comments BUN/Creatinine Ratio (test code = 3097-3) 14 6-25 [facility] AustinEstimat Glomerular Filtration Rate 2018-08-05 06:01:00* Test Item Value Reference Range Interpretation Comments Estimat Glomerular Filtration Rate (test code = 828759586) 36 >60 L Ranges were taken from the National Kidney Disease Education Program and the [facility] Foundation literature.Reference ranges:60 or greater: Iswqin56-61 ( for 3 consecutive months): Chronic kidney disease 15 or less: Kidney failureAscension Seton Medical Center AustinGlucose Rfngh6000-33-93 06:01:00* Test Item Value Reference Range Interpretation Comments Glucose Level (test code = UKV6471) 107 74-118 [facility] AustinCalcium Wagsa2741-47-09 06:01:00* Test Item Value Reference Range Interpretation Comments Calcium Level (test code = 09493-0) 10.0 8.4-10.2 [facility] AustinTotal Vtnibcwdc8017-55-98 06:01:00* Test Item Value Reference Range Interpretation Comments Total Bilirubin (test code = 1975-2) 0.6 0.2-1.2 [facility] AustinAspartate Amino Transf (AST/SGOT) 2018-08-05 06:01:00* Test Item Value Reference Range Interpretation Comments Aspartate Amino Transf (AST/SGOT) (test code = Aspartate Amino Transf (AST/SGOT)) 15 5-34 [facility] AustinAlanine Aminotransferase (ALT/SGPT) 2018-08-05 06:01:00* Test Item Value Reference Range Interpretation Comments Alanine Aminotransferase (ALT/SGPT) (test code = 1742-6) 15 0-55 [facility] AustinTotal Fafnysw3260-80-71 06:01:00* Test Item Value Reference Range Interpretation Comments Total Protein (test code = 2885-2) 6.3 6.5-8.1 L [facility] AustinAlbumin2018-10-10 06:01:00* Test Item Value Reference Range Interpretation Comments Albumin (test code = 1751-7) 3.5 3.5-5.0 [facility] AustinGlobulin2018-10-10 06:01:00* Test Item Value Reference Range Interpretation Comments Globulin (test code = 58599-6) 2.8 2.3-3.5 [facility] AustinAlbumin/Globulin Wukit2357-27-79 06:01:00 * Test Item Value Reference Range Interpretation Comments Albumin/Globulin Ratio (test code = 1759-0) 1.3 0.8-2.0 [facility] AustinAlkaline Hwrjwwkcbop6436-56-87 06:01:00* Test Item Value Reference Range Interpretation Comments Alkaline Phosphatase (test code = 6768-6) 81 40-150 [facility] Austin[facility] Wurzgy6342-25-53 06:01:00* Test Item Value Reference Range Interpretation Comments Creatine Kinase (test code = 2157-6) 89 30-200 [facility] AustinProthrombin Wiyd3559-36-20 05:43:00* Test Item Value Reference Range Interpretation Comments Prothrombin Time (test code = 5902-2) 27.8 11.9-14.5 H [facility] AustinProthromb Time International Ratio 2018-08-05 05:43:00* Test Item Value Reference Range Interpretation Comments Prothromb Time International Ratio (test code = 6301-6) 2.38 Oral Anticoagulant Therapy INR Values:1. Low Intensity Therapy 1.5 - 2.02 . Moderate Intensity Therapy 2.0 - 3.03. High Intensity Therapy(1) 2.5 - 3. 54. High Intensity Therapy(2) 3.0 - 4.05. Panic Value INR > 5.0 [facility] Ofmvy7900-67-46 09:10:00* Test Item Value Reference Range Interpretation Comments Phosphorus Level (test code = OVS3281) 2.9 2.3-4.7 [facility] AustinMagnesium Qddwl4925-76-08 09:10:00* Test Item Value Reference Range Interpretation Comments Magnesium Level (test code = 49829-3) 1.8 1.3-2.1 [facility]2018-10-09 09:10:00* Test Item Value Reference Range Interpretation Comments Phosphorus Level (test code = KOC7261) 2.9 2.3-4.7 [facility]2018-10-09 09:10:00* Test Item Value Reference Range Interpretation Comments Phosphorus Level (test code = NLG0762) 2.9 2.3-4.7 [facility] Dgmib6629-72-43 09:10:00* Test Item Value Reference Range Interpretation Comments Phosphorus Level (test code = TPF5914) 2.9 2.3-4.7 [facility]2018-10-09 09:10:00* Test Item Value Reference Range Interpretation Comments Phosphorus Level (test code = WIJ7494) 2.9 2.3-4.7 [facility]2018-10-09 09:10:00* Test Item Value Reference Range Interpretation Comments Phosphorus Level (test code = NUQ6221) 2.9 2.3-4.7 [facility]2018-10-09 09:10:00* Test Item Value Reference Range Interpretation Comments Phosphorus Level (test code = BLT7836) 2.9 2.3-4.7 [facility] AustinB-Type Natriuretic Celraak7133-26-85 15:23:00* Test Item Value Reference Range Interpretation Comments B-Type Natriuretic Peptide (test code = 73882-2) 131.9 0-100 H [facility] AustinThyroid Stimulating Hormone (TSH) 2018-08-01 06:17:00* Test Item Value Reference Range Interpretation Comments Thyroid Stimulating Hormone (TSH) (test code = 12118-4) 1.215 0.350-4.940 [facility] AustinUrine Random Pjewejtun8445-61-42 05:42:00 * Test Item Value Reference Range Interpretation Comments Urine Random Potassium (test code = 2828-2) 24.1 [facility] AustinU[facility] Qcqxridtgi1100-28-82 05:42:00* Test Item Value Reference Range Interpretation Comments Urine Creatinine (test code = 2161-8) 61.99 63-166 L [facility] AustinU[facility] Random Vazvzafhh7223-00-27 05:42:00 * Test Item Value Reference Range Interpretation Comments Urine Random Potassium (test code = 2828-2) 24.1 [facility] AustinU[facility] Doizcnxstf6576-48-62 05:42:00* Test Item Value Reference Range Interpretation Comments Urine Creatinine (test code = 2161-8) 61.99 63-166 L [facility] AustinU[facility] Random Dazfpiksb1136-49-28 05:42:00 * Test Item Value Reference Range Interpretation Comments Urine Random Potassium (test code = 2828-2) 24.1 [facility] AustinU[facility] Mdqafquoyo3516-82-54 05:42:00* Test Item Value Reference Range Interpretation Comments Urine Creatinine (test code = 2161-8) 61.99 63-166 L [facility] AustinU[facility] Random Fmhoexmim2751-58-43 05:42:00 * Test Item Value Reference Range Interpretation Comments Urine Random Potassium (test code = 2828-2) 24.1 [facility] AustinU[facility] Random Dlcuykbbf6382-10-85 05:42:00 * Test Item Value Reference Range Interpretation Comments Urine Random Potassium (test code = 2828-2) 24.1 [facility] Austin[facility] Random Wicbgswqq3800-10-26 05:42:00 * Test Item Value Reference Range Interpretation Comments Urine Random Potassium (test code = 2828-2) 24.1 [facility] Austin[facility] Random Jmyszeuei5583-46-36 05:42:00 * Test Item Value Reference Range Interpretation Comments Urine Random Potassium (test code = 2828-2) 24.1 [facility] Austin[facility] Random Digwzwtrj0956-88-36 05:42:00 * Test Item Value Reference Range Interpretation Comments Urine Random Potassium (test code = 2828-2) 24.1 [facility] Austin[facility] Random Coerfmogx1904-03-25 05:42:00 * Test Item Value Reference Range Interpretation Comments Urine Random Potassium (test code = 2828-2) 24.1 [facility] Austin[facility] Random Cajxcxtsp2169-66-63 05:42:00 * Test Item Value Reference Range Interpretation Comments Urine Random Potassium (test code = 2828-2) 24.1 [facility] AustinWhite Blood Ohmzv2870-30-07 05:39:00* Test Item Value Reference Range Interpretation Comments White Blood Count (test code = 6690-2) 8.09 4.8-10.8 [facility] AustinRed Blood Flckg3095-76-44 05:39:00* Test Item Value Reference Range Interpretation Comments Red Blood Count (test code = 789-8) 5.77 4.3-5.7 H [facility] AustinHemoglobin2018-10-06 05:39:00* Test Item Value Reference Range Interpretation Comments Hemoglobin (test code = 82136-3) 14.2 14.0-18.0 [facility] AustinHematocrit2018-10-06 05:39:00* Test Item Value Reference Range Interpretation Comments Hematocrit (test code = 4544-3) 47.5 38.2-49.6 [facility] AustinMean Corpuscular Ibuvfl6741-24-63 05:39:00* Test Item Value Reference Range Interpretation Comments Mean Corpuscular Volume (test code = 787-2) 82.3 81-99 [facility] AustinMean Corpuscular Vvyiweqnlp5772-76-23 05:39:00* Test Item Value Reference Range Interpretation Comments Mean Corpuscular Hemoglobin (test code = 785-6) 24.6 28-32 L [facility] AustinMean Corpuscular Hemoglobin Concent 2018-08-01 05:39:00* Test Item Value Reference Range Interpretation Comments Mean Corpuscular Hemoglobin Concent (test code = 786-4) 29.9 31-35 L [facility] AustinRed Cell Distribution Hrfxv1003-35-10 05:39:00* Test Item Value Reference Range Interpretation Comments Red Cell Distribution Width (test code = 45178-1) 17.2 11.7 -14.4 H [facility] AustinPlatelet Udcfy1026-32-85 05:39:00* Test Item Value Reference Range Interpretation Comments Platelet Count (test code = 777-3) 213 140-360 [facility] AustinNeutrophils (%) (Auto)2018-08-01 05:39:00 * Test Item Value Reference Range Interpretation Comments Neutrophils (%) (Auto) (test code = 74988-9) 62.9 38.7-80.0 [facility] AustinLymphocytes (%) (Auto)2018-08-01 05:39:00 * Test Item Value Reference Range Interpretation Comments Lymphocytes (%) (Auto) (test code = 736-9) 21.4 18.0-39.1 [facility] AustinMonocytes (%) (Auto)2018-08-01 05:39:00* Test Item Value Reference Range Interpretation Comments Monocytes (%) (Auto) (test code = 5905-5) 12.4 4.4-11.3 H [facility] AustinEosinophils (%) (Auto)2018-08-01 05:39:00 * Test Item Value Reference Range Interpretation Comments Eosinophils (%) (Auto) (test code = 713-8) 2.3 0.0-6.0 [facility] AustinBasophils (%) (Auto)2018-08-01 05:39:00* Test Item Value Reference Range Interpretation Comments Basophils (%) (Auto) (test code = 706-2) 0.6 0.0-1.0 [facility] AustinIM GRANULOCYTES %2018-08-01 05:39:00* Test Item Value Reference Range Interpretation Comments IM GRANULOCYTES % (test code = IM GRANULOCYTES %) 0.4 0.0- 1.0 [facility] AustinNeutrophils # (Auto)2018-08-01 05:39:00* Test Item Value Reference Range Interpretation Comments Neutrophils # (Auto) (test code = 751-8) 5.1 2.1-6.9 [facility] AustinLymphocytes # (Auto)2018-08-01 05:39:00* Test Item Value Reference Range Interpretation Comments Lymphocytes # (Auto) (test code = 95148-4) 1.7 1.0-3.2 [facility] AustinMonocytes # (Auto)2018-08-01 05:39:00* Test Item Value Reference Range Interpretation Comments Monocytes # (Auto) (test code = 742-7) 1.0 0.2-0.8 H [facility] AustinEosinophils # (Auto)2018-08-01 05:39:00* Test Item Value Reference Range Interpretation Comments Eosinophils # (Auto) (test code = 711-2) 0.2 0.0-0.4 [facility] AustinBasophils # (Auto)2018-08-01 05:39:00* Test Item Value Reference Range Interpretation Comments Basophils # (Auto) (test code = 704-7) 0.1 0.0-0.1 [facility] AustinAbsolute Immature Granulocyte (auto 2018-08-01 05:39:00* Test Item Value Reference Range Interpretation Comments Absolute Immature Granulocyte (auto (bharat t code = Absolute Immature Granulocyte (auto) 0.03 0-0.1 [facility] AustinUrine ICE3030-47-76 05:27:00* Test Item Value Reference Range Interpretation Comments Urine WBC (test code = 5821-4) 11-20 0-5 H [facility] AustinUrine LEW0742-97-45 05:27:00* Test Item Value Reference Range Interpretation Comments Urine RBC (test code = 03141-5) 6-10 0-5 H [facility] AustinUrine Ufdiuepd6115-31-05 05:27:00* Test Item Value Reference Range Interpretation Comments Urine Bacteria (test code = 83302-9) FEW NONE [facility] AustinU[facility] Epithelial Qfrzi4906-11-34 05:27:00 * Test Item Value Reference Range Interpretation Comments Urine Epithelial Cells (test code = 15171-3) FEW NONE [facility] AustinUrine Dmqmo3748-85-58 05:21:00* Test Item Value Reference Range Interpretation Comments Urine Color (test code = 5778-6) YELLOW YELLOW [facility] AustinUrine Phkldht6632-62-78 05:21:00* Test Item Value Reference Range Interpretation Comments Urine Clarity (test code = 67582-4) CLEAR CLEAR [facility] Specific Xyhecqw6008-74-07 05:21:00 * Test Item Value Reference Range Interpretation Comments Urine Specific [place] (test code = 5811-5) 1.010 1.010-1.02 5 [facility] uT3634-68-12 05:21:00* Test Item Value Reference Range Interpretation Comments Urine pH (test code = 83713-1) 6 5-7 [facility] AustinU[facility] Leukocyte Nokqquag6773-50-27 05:21:00* Test Item Value Reference Range Interpretation Comments Urine Leukocyte Esterase (test code = 5799-2) 1+ NEGATIVE H [facility] Yxznmcy4412-75-46 05:21:00* Test Item Value Reference Range Interpretation Comments Urine Nitrite (test code = 20719-2) NEGATIVE NEGATIVE [facility] AustinUrine Bopbswc8379-24-46 05:21:00* Test Item Value Reference Range Interpretation Comments Urine Protein (test code = 5804-0) NEGATIVE NEGATIVE [facility] AustinUrine Glucose (UA)2018-08-01 05:21:00* Test Item Value Reference Range Interpretation Comments Urine Glucose (UA) (test code = 2349-9) NEGATIVE NEGATIVE [facility] AustinU[facility] Zbjilfn2485-71-09 05:21:00* Test Item Value Reference Range Interpretation Comments Urine Ketones (test code = 17257-1) NEGATIVE NEGATIVE [facility] AustinUrine Eyicyhqqrwnr6148-10-81 05:21:00* Test Item Value Reference Range Interpretation Comments Urine Urobilinogen (test code = 62014-4) 0.2 0.2-1 [facility] AustinU[facility] Ytcvpzqmo4033-25-24 05:21:00* Test Item Value Reference Range Interpretation Comments Urine Bilirubin (test code = 1978-6) NEGATIVE NEGATIVE [facility] AustinU[facility] Zaudu9088-33-10 05:21:00* Test Item Value Reference Range Interpretation Comments Urine Blood (test code = 96872-3) 1+ NEGATIVE H [facility] AustinCHEST 2 KXMGW9365-49-75 16:42:00 [facility] [address] [place] [address] Patient Name: STEVE BENEDICT MR #: [id number] : 1945 Age/Sex: 72/M Req #: [id number] Adm Physician: HAILEE MCGUIRE MD Ordered by: HAILEE MCGUIRE MD Report #: [id number] Location: [facility] Room/Bed: [place] [address] Procedure: [id number] DX/C HEST 2 VIEWS Exam Date: 07/31/18 [...] COPY TO: HAILEE MCGUIRE MD RENAL RETROPERITONEAL ZAFH3336-94-42 15:30:00 [place] [address] Patient Name: STEVE BENEDICT MR #: [id number] : 1945 Age/Sex: 72/M Req #: [id number] Adm Physician: HAILEE MCGUIRE MD Ordered by: HAILEE MCGUIRE MD Report #: [id number] Location: [facility] Room/Bed: [place] [address] Procedure: [id number] US/U S RENAL RETROPERITONEAL COMP Exam Date: [...] PERSON MD Transcribed By: ERAN on 07/31/18 8444 COPY TO: HAILEE MCGUIRE MD Creatine Kinase II5614-30-56 14:46:00* Test Item Value Reference Range Interpretation Comments Creatine Kinase MB (test code = 07583-2) 15.00 0-5.0 H [facility] AustinTroponin X4413-92-49 14:46:00* Test Item Value Reference Range Interpretation Comments Troponin I (test code = KGX7406) 0.011 0-0.300 [facility] AustinCHEM SOUNO4668-81-38 [facility] GIYZL7287-86-31 14:28:001.3[facility] QEJUU2827-47-01 14:02:0055[facility] TGBYM7784-12-21 14:02:001.3[facility] [place] [address] Patient Name: STEVE BENEDICT MR #: [id number] : 1945 Age/Sex: 71/M Req #: [id number] Adm Physician: Ordered by: TEOFILO SUMMERS Report #: [id number] Location: [facility] Room/Bed: Procedure: [id number] DX/CHEST 2 VIEWS Exam Date: Exam Time: [...]
[2020-06-12 23:48] LABS: CLARITY,URINE CLOUDY (CLEAR)
[2020-06-12 23:49] LABS: BILIRUBIN,URINE NEGATIVE (NEGATIVE); COLOR,URINE YELLOW (YELLOW); KETONES,URINE NEGATIVE (NEGATIVE); LEUKOCYTE ESTERASE ,URINE MODERATE (NEGATIVE); NITRITE,URINE NEGATIVE (NEGATIVE); PROTEIN,URINE DIPSTICK 1+ (NEGATIVE); URINE UROBILINOGEN 0.2 mg/dL (0.2 - 1)
[2020-06-12 23:56] LABS: BACTERIA,URINE MODERATE /HPF; EPITHELIAL CELLS,URINE FEW /LPF; WBC,URINE (MAN) >50 /HPF (0-5)
[2020-06-13] VITALS (9 sets, daily range): BP systolic 105–133; BP diastolic 50–79
--- NOTE | 2020-06-13 03:24 | NUR ---
PT IS TRANSFERRED FROM ER .PT IS AOX3 .RESPIRATIONS ARE EVEN AND UNLABORED ,PT HAS LEFT FOOT WOUND WITH DRESSING RT ELBOW WOUND ,BOTH LEGS ARE SWOLLEN AND RED SACRUM RED RT AC 20G .TELE 34 RUNNING AFIB.PT ABD DISTENDED AND PT HAS PAIN PUMP.ORIENTED THE PT TO THE ROOM ,AND ASSESSMENT DONE ,CALL LIGHT WITH IN REACH CONTINUE TO MONITOR
[2020-06-13] MEDS: PIPERACILLIN/TAZO 2.25 GM 50 ML IV SCH ×3 (04:00→20:35)
[2020-06-13] MEDS: ACETAMINOPHEN 325 MG TAB PO PRN ×2 (05:22→17:23)
--- NOTE | 2020-06-13 06:06 | NUR ---
PT RESTING .PT C/O PAIN AND GIVEN TYLENOL .CALL LIGHT WITH IN REACH .CONTINUE TO MONITOR
[2020-06-13 06:13] LABS: BASOPHILS % 0.3 % (0.0-1.0); EOSINOPHILS # (AUTO) 0.1 (0.0-0.4); HEMATOCRIT 42.6 % (38.2-49.6); HEMOGLOBIN 12.8 g/dL (14.0-18.0); LYMPHOCYTES # (AUTO) 1.2 (1.0-3.2); LYMPHOCYTES % 10.2 % (18.0-39.1); MONOCYTES # (AUTO) 0.7 (0.2-0.8); MONOCYTES % 5.4 % (4.4-11.3); NEUTROPHILS % 82.6 % (38.7-80.0); PLATELET COUNT 132 x10e3/uL (140-360); RED BLOOD COUNT 4.26 x10e6/uL (4.3-5.7); RED CELL DISTRIBUTION WIDTH 17.6 % (11.7-14.4)
[2020-06-13 06:28] LABS: ALBUMIN 3.1 g/dL (3.5-5.0); ANION GAP 16.1 mmol/L (8-16); CALCIUM 8.6 mg/dL (8.4-10.2); CREATININE, SERUM 2.38 mg/dL (0.72-1.25); POTASSIUM 3.1 mmol/L (3.5-5.1)
[2020-06-13 06:58] LABS: CREATINE KINASE MB 6.5 ng/mL (0-5.0)
[2020-06-13] MEDS: INSULIN REGULAR, HUMAN 100 UNIT/1 ML 3ML VIAL SQ SCH ×4 (07:30→21:17)
--- NOTE | 2020-06-13 07:39 | NUR ---
BEDSIDE REPORT GIVEN TO THE ONCOMING NURSE
--- NOTE | 2020-06-13 07:56 | NUR ---
PCT INFORMED RN THAT PATIENT'S BG IS 38- RN PROVIDED PATIENT WITH JUICE. PATIENT IS ALERT AND IN STABLE CONDITION WITH NO S/S OF RESPIRATORY DISTRESS. DENIES PAIN. PATIENT IS CURRENTLY SITTING ON THE SIDE OF THE BED TO EAT BREAKFAST- PATIENT IS ORIENTED. RN ASSESSED PATIENT- BRUISES NOTED TO BILATERAL UPPER EXTREMITIES, SKIN TEARS NOTED TO POSTERIOR BILATERAL UPPER ARMS, PITTING EDEMA NOTED 3+ TO BILATERAL LOWER EXTREMITIES, OPEN AREA NOTED TO RIGHT LATERAL LOWER LEG, AND WOUND NOTED TO ANTERIOR PART OF LEFT FOOT WITH DRESSING APPLIED. 02 APPLIED AT 4L. TELEMETRY APPLIED. NON-SKID SOCKS APPLIED.
[2020-06-13] MEDS ORDERED: FUROSEMIDE INJ 10 MG/ML 2 ML VIAL IV ONE (10:58)
[2020-06-13 11:45] LABS: ABG HCO3 44 mmol/L (22-26); ABG PCO2 80 mmHg (35-45); ABG PH 7.35 (7.35-7.45); ABG PO2 293 mmHg (80-105); ABG TCO2 47
[2020-06-13] MEDS ORDERED: POTASSIUM CHLORIDE 20 MEQ TAB CR PO STA (12:11)
--- NOTE | 2020-06-13 12:25 | NUR ---
ATTEMPTED TO GET PATIENT'S HOME MEDICATION LIST AGAIN, OR PHARMACY INFORMATION, BUT PATIENT STATED HE GAVE THE INFORMATION TO STAFF PRIOR TO ME AND IT WAS CORRECT.
--- NOTE | 2020-06-13 12:39 | Consultation ---
DATE OF CONSULTATION: Cardiology Consultation REASON FOR CONSULTATION: Falls and cardiovascular management. HISTORY OF PRESENT ILLNESS: This is a 74-year-old man with a history of chronic diastolic heart failure, coronary artery disease, status post percutaneous coronary intervention, atrial fibrillation, hypertension, hyperlipidemia, COPD, chronic kidney disease, and cirrhosis, who presented to the emergency department after a fall. The patient states that he did not eat dinner last night, was noted to have a low blood glucose, was on his way to the bathroom around 2 a.m. and fell. The patient states that he was there until 6 a.m. when his finally woke up and found him. He denies any chest pain, palpitations, or syncope. He states that he was weak and fell. Upon arrival here, he was noted to be hypotensive and hypoglycemic. PAST MEDICAL HISTORY: As stated above. PAST SURGICAL HISTORY: As stated above. FAMILY HISTORY: Noncontributory to current illness. SOCIAL HISTORY: No illicit drug, alcohol, or tobacco use. ALLERGIES: PREGABALIN. MEDICATIONS: See medication reconciliation form. PHYSICAL EXAMINATION: VITAL SIGNS: Temperature is 98.2, heart rate is 108, respirations are 19, blood pressure is 133/79, oxygen saturation 95% on room air. GENERAL: Chronically ill-appearing man, lying comfortably in bed, in no apparent distress. Alert and oriented x3. HEAD: Normocephalic and atraumatic. EYES: Extraocular muscles are intact. Conjunctivae are clear. NECK: No jugular venous distention. CARDIOVASCULAR: Irregularly irregular, tachycardic. LUNGS: Diminished breath sounds at the bases. ABDOMEN: Soft, nontender, and nondistended. EXTREMITIES: He has right elbow wound that is wrapped and dressed. NEUROLOGIC: No focal deficits noted. CARDIOVASCULAR MEDICATIONS: All cardiovascular medications reviewed. LABORATORY DATA: Reviewed. TELEMETRY: Monitoring shows atrial fibrillation. IMPRESSION: 1. Sepsis. 2. Hypoglycemia. 3. Falls. 4. Debilitation. 5. Chronic diastolic heart failure. 6. Atrial fibrillation. 7. History of hypertension. 8. Left upper extremity wound. RECOMMENDATIONS: Continue current cardiovascular medications. Antibiotics and fluids per primary team. We will avoid volume overload. Continue to titrate metoprolol for better rate control. Continue Xarelto for his anticoagulation needs. We will continue to follow along with you. Jimbo DO NEVIN Elizalde/STEVE /[id number]
--- NOTE | 2020-06-13 13:44 | Consultation ---
DATE OF CONSULTATION: Pulmonary Critical Care Consultation CHIEF COMPLAINT: Leg edema and dyspnea. HISTORY OF PRESENT ILLNESS: The patient is a 74-year-old man. He has a history of COPD as well as chronic diastolic heart failure. He required admission to [facility] in May of last year with exacerbation of his heart failure as well as autonomic dysfunction related to autonomic neuropathy and atrial fibrillation. He now comes to the hospital complaining of leg swelling as well as some congestion in his chest. He feels as something is stuck in his windpipe. He does not report any fevers. He is not complaining of any chest pain. PAST MEDICAL HISTORY: 1. COPD. 2. Diastolic heart failure. 3. Chronic renal failure, stage 3. 4. Atrial fibrillation. 5. Hypertension. 6. Diabetes. 7. Ankylosing spondylitis. 8. Anemia. PAST SURGICAL HISTORY: 1. Status post prostate surgery. 2. Placement of a pain pump with Dilaudid. 3. Bilateral cataract surgery. SOCIAL HISTORY: The patient quit smoking 6 years ago. He is not an active drinker. ALLERGIES: THE PATIENT IS ALLERGIC TO NEURONTIN. FAMILY HISTORY: Noncontributory. REVIEW OF SYSTEMS: The patient denies any fevers. He does not complain of headache. He has no chest pain. He does not complain of any abdominal pain. He has no nausea or vomiting. He does have some leg swelling. He also reports an open wound on the left lateral leg as well as on the elbow. PHYSICAL EXAMINATION: VITAL SIGNS: The blood pressure is 133/80 and the saturation is 98%. Pulse is 110. HEENT: Shows no facial swelling or erythema. LYMPHATIC: Shows no submandibular, cervical, or supraclavicular adenopathy. CARDIAC: Reveals regular rate and rhythm with normal S1, S2. LUNGS: Auscultation of lungs reveals crackles at the bases. There is no wheezing. ABDOMEN: Soft, nontender. There is no rebound or guarding. EXTREMITIES: Shows 2 to 3+ leg edema. There is a wound on the elbow as well as wounds on the leg. LABORATORY DATA: White blood cell count is 12.1 and hemoglobin is 12.8. The platelet count is 132. The BUN to creatinine ratio is 90 to 2.38. Potassium is 3.1, and the carbon dioxide is 36. Albumin is 3.1. ABG is pH 7.35, CO2 of , bicarb of 44. RADIOGRAPHIC DATA: Chest x-ray shows some fractures on the left side in the 6th and 7th rib. There is subsegmental atelectasis at the left lung base. IMPRESSION: 1. Acute on chronic renal failure. 2. Chronic obstructive pulmonary disease .. 3. Subacute rib fractures. 4. Mixed respiratory acidosis and metabolic alkalosis. 5. Chronic pain syndrome. 6. Chronic wounds requiring wound VAC and wound care. PLAN: 1. Continue oxygen as needed. 2. Continue current antibiotics and wound care. 3. Bronchodilators. 4. Pain control. 5. BiPAP as needed. 6. Consider using acetazolamide to help correct metabolic alkalosis. 7. Consultation with Nephrology and Cardiology. Wellington Ross MD [facility]/MODL /[id number]
--- NOTE | 2020-06-13 14:24 | NUR ---
WOUND CARE CONSULT FOR 74 YO MALE HX OF RENAL FAILURE ,A FIB MARY ANN 18 ON MODERATE PUP STATUS AND INTERVENTIONS AND ALTERNATING PRESSURE MATTRESS LABS: WBC-12.13 HGB_12.8 GLUCOSE-81 SKIN ASSESSMENT COMPLETE PATIENT PRESENTS WITH MULTIPLE BRUISES TO BILATERAL ARMS AND RIGHT BUTTOCK ,PARTIAL THICKNESS WOUNDS TO LEFT DORSAL FOOT, LEFT UPPER ARM ,RIGHT UPPER ARM ,LEFT ELBOW FULL THICKNESS WOUND POST SURG DEBRIDEMENT AND NEGATIVE PRESSURE DRESSING 100% SLOUGH AT THIS TIME RECOMMENDATIONS: NURSING TO CONTINUE TO MAINTAIN MODERATE PUP STATUS AND INTERVENTIONS AND ALTERNATING PRESSURE MATTRESS NURSING TO CONTINUE TO ASSIST PATIENT OUT OF BED FOR MEALS AND MUCH TOLERATED NURSING TO CONTINUE TO ASSIST PATIENT NEEDED WITH MEALS AND NUTRITIONAL SUPPLEMENTS TO ENSURE PROPER REQUIREMENTS FOR HEALING NURSING TO CONTINUE TO OFFLOAD FEET AND HEELS NEEDED WITH PILLOW SUSPENSION WHEN IN BED NURSING TO CLEAN PARTIAL THICKNESS WOUNDS TO LEFT DORSAL FOOT, LEFT UPPER ARM ,RIGHT UPPER ARM WITH NORMAL SALINE DAILY AND APPLY PURACOL PLUS COLLAGEN TO WOUND BASE AND ALLEVYN FOAM DRESSING NURSING TO CLEAN LEFT ELBOW FULL THICKNESS WOUND WITH NORMAL SALINE DAILY AND APPLY SANTYL OINTMENT AND 4X4 DRESSING WRAP WITH KERLIX Addendum: 06/13/20 at 1438 by Saud Del Cid RN Amended: Links added.
[2020-06-13 14:37] LABS: CREATINE KINASE MB 7.5 ng/mL (0-5.0)
[2020-06-13] MEDS: METOPROLOL TARTRATE 25 MG TAB PO SCH (16:13)
[2020-06-13] MEDS: ROPINIROLE HCL 0.25 MG TAB PO SCH (16:13)
[2020-06-13] MEDS: TAMSULOSIN HCL 0.4 MG CAP PO SCH (16:13)
[2020-06-13] MEDS: GABAPENTIN 300 MG CAP PO SCH (16:13)
[2020-06-13] MEDS ORDERED: ROPINIROLE HCL 0.25 MG TAB PO SCH (17:00)
[2020-06-13] MEDS ORDERED: LIDOCAINE PAIN1 EACH TOP (17:04)
[2020-06-13] MEDS ORDERED: CYCLO TOP (17:04)
[2020-06-13] MEDS ORDERED: LIDO TOP (17:04)
[2020-06-13] MEDS ORDERED: KETO TOP (17:04)
--- NOTE | 2020-06-13 18:14 | NUR ---
CALLED [facility]- PHARMACIST REQUIRED PATIENT'S SIGNATURE. SIGNATURE OBTAINED- A 3 PAGE FAX WITH HOSPITAL NAME REQUESTED WAS SENT TO [facility] [phone] AT 7438. NO FAX RECEIVED. CALLED PHARMACY AGAIN AND RE-FAXED THE PAPERWORK. AWAITING MEDICATION LIST AND WILL INFORM NIGHT NURSE.
[2020-06-13] MEDS: BUDESONIDE 0.5MG/2 ML NEB NEB SCH (18:30)
[2020-06-13] MEDS: ALBUTEROL SULF 0.083% NEB SOLN 3 ML NEB NEB SCH (18:30)
--- NOTE | 2020-06-13 19:16 | NUR ---
PATIENT IS IN STABLE CONDITION WITH NO S/S OF RESPIRATORY DISTRESS. NO PAIN VOICED. TELEMETRY APPLIED. 02 APPLIED AT 5L NC. ALL DRESSINGS APPLIED ARE C/D/I. CALL LIGHT IS WITHIN REACH, PATIENT INSTRUCTED TO CALL FOR ASSISTANCE. BEDSIDE SHIFT REPORT GIVEN TO ONCOMING NURSE.
--- NOTE | 2020-06-13 20:10 | Consultation ---
DATE OF CONSULTATION: Initial Nephrology Consultation Report REASON FOR CONSULTATION: Edema, acute kidney injury. HISTORY OF PRESENT ILLNESS: Mr. Sharma is a 74-year-old male. He has a history of chronic kidney disease. He is followed by my associate, Dr. Mendez in the clinic. The patient's serum creatinine as an outpatient seems fluctuates. It was actually 1.5, then 1 to 2.3, then went back down to 1.4. His creatinine has been going up and down. The patient presents to the hospital with some leg swelling and also feeling some chest congestion. PAST MEDICAL HISTORY: The patient has a history of chronic kidney disease stage 3, COPD, heart failure, hypertension, diabetes, and atrial fibrillation. PAST SURGICAL HISTORY: The patient has history of a cataract surgery. SOCIAL HISTORY: The patient quit smoking. REVIEW OF SYSTEMS: Swelling of the legs and also some mild shortness of breath. LABORATORY RESULTS: BUN and creatinine 90 and 2.38, sodium 138, potassium 3.1, chloride 89, and bicarbonate 36. Hemoglobin and hematocrit 12.8 and 42.6. IMPRESSION/PLAN: 1. Acute kidney injury superimposed on chronic kidney disease. 2. Chronic kidney disease, stage 3. 3. Hypertension. 4. Diabetes. 5. Atrial fibrillation. 6. Total body water expansion. 7. Edema. PLAN: The patient is azotemic and calcium and IV contrast should be avoided. We will introduce some Lasix to help with the peripheral edema. The medicines that he is on at this time are okay and if his renal function worsens, then the patient may need dialysis and potassium has been replaced. I will follow the patient with you. Thank you, Dr. Short, for allowing me to participate in the care of this patient with you. Ather MD STEPHANIE Coulter/STEVE /[id number]
--- NOTE | 2020-06-13 20:47 | NUR ---
RECEIVED PT SITTING ON THE SIDE OF THE BED .DENIES PAIN .NO ACUTE DISTRESS NOTED CALL LIGHT WITH IN REACH .CONTINUE TO MONITOR FAX THE INFORMATION TO THE [facility] FOR MEDICATION LIST
[2020-06-13] MEDS: VANCOMYCIN 1GM/NS 250 ML 250 ML IV SCH (21:00)
[2020-06-13] MEDS ORDERED: CLONAZEPAM 0.5 MG TAB PO PRN (21:00)
[2020-06-13] MEDS: LATANOPROST(OPTH) 2.5 ML BTL OU SCH (21:06)
[2020-06-13] MEDS: SERTRALINE HCL 50 MG TAB PO SCH (21:07)
[2020-06-13] MEDS: ALLOPURINOL 300 MG TAB PO SCH (21:07)
[2020-06-13] MEDS ORDERED: ALPRAZOLAM 0.5 MG TAB PO PRN (22:45)
[2020-06-13] MEDS ORDERED: [UNRECOGNIZED DRUG - OTHER] INH PRN (22:45)
[2020-06-13] MEDS ORDERED: LIDOCAINE TOP PRN (22:45)
[2020-06-13] MEDS ORDERED: SODIUM CHLORIDE FOR INHALATION 7% INH PRN (22:45)
[2020-06-13] MEDS ORDERED: DILAUDID PO PRN (23:15)
[2020-06-13] MEDS ORDERED: GUAIFENESIN 600 MG TAB PO PRN (23:15)
[2020-06-13] MEDS ORDERED: HYDROMORPHONE HCL 2 MG TAB PO PRN (23:15)
[2020-06-14] VITALS (9 sets, daily range): BP systolic 78–144; BP diastolic 54–88
[2020-06-14] MEDS ORDERED: ALPRAZOLAM 0.5 MG TAB PO PRN (01:15)
--- NOTE | 2020-06-14 01:17 | History and Physical ---
CONSULTING PHYSICIANS: Include Dr. Robert Mendez with Nephrology, Dr. Wellington Ross with Pulmonology, Dr. Horace Mcguire with Cardiology, Dr. Patrick Moy with Endocrinology. PCP: Dr. Christopher Summers. CHIEF COMPLAINT: Fall. HISTORY OF PRESENT ILLNESS: The patient is a 74-year-old male, who fell out of bed at about 02:00 a.m. on 06/12/2020, due to "weakness from low blood sugar" and states he had to wait 4 hours for his to awaken in order to help him. The patient reports that he has been having difficulties with hypoglycemia lately. He has a complicated medical history. He is planning to have back surgery in the next 2 to 3 months if he is able to get his wound on his left elbow as well as the one on his left foot under better control. PAST MEDICAL HISTORY: Chronic diastolic congestive heart failure, coronary artery disease, atrial fibrillation, hypertension, hyperlipidemia, chronic kidney disease stage 3, COPD, diabetes mellitus, autonomic neuropathy, ankylosing spondylitis, chronic pain syndrome, chronic wounds requiring wound VAC such as the one on the left elbow, there is a pre-existing wound on the dorsum aspect left foot, BPH, chronic back pain, glaucoma, gout, oxygen dependence of 4 to 5 L/minute. The patient denies any history of liver cirrhosis. PAST SURGICAL HISTORY: PCI with 5 coronary artery stents, prostate surgery, pain pump placement with use of Dilaudid, bilateral cataract surgery. On 11/10/2019, he had a Watchman procedure. FAMILY HISTORY: The patient states that both his mother and father had health problems and both had permanent pacemakers. His brother also had heart problems. SOCIAL HISTORY: He admits to smoking 1-1/2 pack-per day for 50 years. He denies any previous history of alcohol or illicit drug use. ALLERGIES: PREGABALIN/NEURONTIN. REVIEW OF SYSTEMS: A 14-point review of systems was completed and the patient's complaints included shortness of breath with some phlegm. Underlying history of prostate problems. Last bowel movement was Friday, 06/11. He has chronic pain in his back, that radiates to his right side, which is sharp and severe. He has problems with balance. He is a known diabetic with recent history of low blood sugars. PHYSICAL EXAMINATION: VITAL SIGNS: Temperature 98.2, pulse 120 this morning, blood pressure 133/79, respirations 21, oxygen saturation 98%. Height 5 feet 9 inches, weight 210 pounds, BMI 31. GENERAL: Supine in bed, in no acute distress. LUNGS: Generally clear to auscultation. Diminished in the bases. Oxygen at 5 L/minute via nasal cannula. HEENT: EOMI. NECK: Supple. CARDIOVASCULAR: Irregularly irregular without murmur. ABDOMEN: Bowel sounds positive. Soft, obese. No guarding. EXTREMITIES: With 2 to 3+ leg edema bilaterally. Left lower extremity erythema with warmth noted consistent with cellulitis. NEUROLOGICAL: GCS 15. Nonfocal. INTEGUMENTARY: He has an open wound on the dorsum aspect of the left foot, which is covered with a Kerlix dressing. He has a full-thickness left elbow wound also with dressing. The wound VAC has been removed. He has bilateral arm hematomas. DIAGNOSTIC STUDIES AND LABORATORY DATA: Fingerstick blood glucose level this morning was 38, 56, 104, 146, 124, 194, and 258. WBCs on admission 17.14. Today, CBC showed WBC 12.13, hemoglobin 12.8, hematocrit 42.6, and platelets 132. The patient had an ABG this morning as the respiratory therapist was concerned because he was short of breath, however, this was a new respiratory therapist. A pH 7.35, pCO2 of 80, PaO2 of 293, HCO3 of 44, oxygen saturation 100%, base excess of 19, FiO2 of 100%. PT 13.5, INR 0.98, PTT 39.5. Yesterday, anion gap 20.5, BUN 98, creatinine 3.02, estimated GFR 20. Lactic acid initially was 2.8, then at 09:00 p.m. last night was 1.3. Initial LFTs within normal limits. Creatine kinase 290, CK-MB 3.4, troponin I 0.274. Urinalysis showed cloudy urine, pH 5.5, protein 1+, small amount of blood, negative nitrite, moderate amount of leukocyte esterase, rbc's 6 to 10, wbc's greater than 50, few epithelial cells, moderate bacteria. Today, sodium 138, potassium 3.1, chloride 89, CO2 of 36, anion gap 16.1, BUN 90, creatinine 2.38, estimated GFR 27, glucose 81, calcium 8.6, total bilirubin 0.6, AST 30, ALT 23, alkaline phosphatase 71. Creatine kinase 381, CK-MB 6.5, troponin I 0.195. Total protein 6.2, albumin 3.1. Coronavirus PCR collected today with results pending. No growth from urine culture or blood cultures, which were all collected yesterday. Hemoglobin A1c today was 5.7%. TSH 3.117. Chest x-ray today showed left lung atelectasis and left rib fractures at 6, 7, and perhaps 8. A 12-lead EKG showed atrial fibrillation with a heart rate of 123. No echocardiogram results noted. ASSESSMENT AND PLAN: 1. Fall at home, possibly due to hypoglycemia and/or septic shock. Physical Therapy to see and evaluate. Maintain fall precautions. 2. Sepsis, status post septic shock, present on admission (source left leg cellulitis, and/or UTI, and/or left foot wound). Lactic acid improved to 1.3 from 2.8. WBCs improved to 12.1 from 17.14. Continue IV vancomycin and Zosyn. Consider Infectious Disease consult. Monitor for continued improvement. 3. Left leg cellulitis with open wound of left foot. No line of demarcation noted. Warmth is noted at the left leg. Continue IV antibiotics. Wound Care consult. We will ask Dr. Shaw with Podiatry to see and evaluate. 4. Acute kidney injury on chronic kidney disease stage 3, BUN 90, creatinine 2.38, estimated GFR 27. Avoid nephrotoxic agents. Nephrology following. Monitor for improvement. 5. Atrial fibrillation with rapid ventricular response, heart rate 120s. Cardiology following. Continue beta-anup, metoprolol. Continue anticoagulation, Xarelto and aspirin. 6. Chronic diastolic congestive heart failure. Monitor fluid balance. No fluid volume overload seen on chest x-ray. 7. Chronic obstructive pulmonary disease with acute exacerbation with subacute left rib fractures and oxygen dependence. Continue supplemental oxygen at home dose of 5 L/minute via nasal cannula. Continue neb treatments. 8. Controlled hypertension with chronic kidney disease stage 3 and chronic diastolic congestive heart failure. Blood pressure 133/79. Cardiology following. Monitor. 9. Uncontrolled type 2 diabetes mellitus with hypoglycemia and chronic kidney disease stage 3. We will consult Dr. Moy with Endocrinology. Blood sugar as low as 38 this morning and D50 given. Later on, blood sugar 258. Hemoglobin A1c 5.7% today. We will change diet from ADA diet to renal ADA diet. 10. Chronic pain syndrome. Pain control. Currently, pain is under control and the patient apparently has been using oral Dilaudid at home. 11. Chronic left elbow wound. His wound VAC has been removed. Localized wound care. 12. Ambulatory dysfunction. Physical Therapy eval and treat. 13. Acute urinary tract infection, present on admission. Await final urine cultures. Continue vancomycin and Zosyn antibiotics for now. 14. Prophylaxis, Xarelto and Protonix. We will discontinue Pepcid. H and P time spent 80 minutes. Billing code [id number]. Dictated by Mainor Milian, MEAT CARRIER MD REINA Ladd/STEVE /[id number]
[2020-06-14] MEDS ORDERED: ACETAMINOPHEN 325 MG TAB PO PRN (01:30)
[2020-06-14] MEDS ORDERED: CLONAZEPAM 0.5 MG TAB PO PRN (01:30)
[2020-06-14] MEDS ORDERED: DEXTROSE 50% SYRINGE 50 ML IV PRN (01:30)
[2020-06-14] MEDS ORDERED: SODIUM CHLORIDE 0.9% 250ML 250 ML ONE (03:16)
[2020-06-14] MEDS: LEVOTHYROXINE SODIUM 100 MCG TAB PO SCH (06:00)
[2020-06-14] MEDS ORDERED: FUROSEMIDE 40 MG TAB PO SCH (06:00)
--- NOTE | 2020-06-14 06:24 | NUR ---
C/O PAIN AND GIVEN TYLENOL .PT RESTING .MEDICATIONS IN THE COMPUTER IS NOT SHOWING NOTIFIED IT .NOT FIEXED GIVEN MEDS ARE WRITTEN IN THE MEDICATION SHEET .CONTINUE TO MONITOR
[2020-06-14] MEDS: BUDESONIDE 0.5MG/2 ML NEB NEB SCH ×2 (07:00→19:00)
--- NOTE | 2020-06-14 07:00 | NUR ---
SBAR BEDSIDE REPORT RECEIVED FROM PM SHIFT NURSENaomy. PT WAS RECEIVED RESTING IN BED IN NO ACUTE DISTRESS. PT IS ABLE TO MAKE NEEDS KNOWN AND STATES NO CURRENT NEEDS. PT WAS EDUCATED ON FALL RISK PRECAUTIONS. CALL LIGHT AND BELONGINGS PLACED NEARBY. WILL CONTINUE TO MONITOR.
--- NOTE | 2020-06-14 07:21 | NUR ---
BEDSIDE REPORT GIVEN TO THE ONCOMING NURSE
[2020-06-14 07:22] LABS: ANION GAP 12.9 mmol/L (8-16); CALCIUM 9.4 mg/dL (8.4-10.2); CREATININE, SERUM 1.91 mg/dL (0.72-1.25); PHOSPHORUS 3.4 MG/DL (2.3-4.7); POTASSIUM 3.9 mmol/L (3.5-5.1)
[2020-06-14] MEDS: PANTOPRAZOLE SOD 40 MG TABEC PO SCH (07:30)
--- NOTE | 2020-06-14 07:30 | NUR ---
RECEIVED CALL FROM LAB STATING CRITICAL CO2=43?. ASSESSED PT COMPLAINING OF SOB ON 4L. PT O2SAT 100. PT SAT UP IN BED. RESPIRATORY THERAPIST GAVE NEBULIZER TREATMENTS THIS MORNING AROUND 0700. DR. DEGROOT WAS MADE AWARE AND WILL ROUND ON PT THIS AM.
[2020-06-14] MEDS: ASPIRIN 81 MG CHEW TAB PO SCH (09:00)
[2020-06-14] MEDS ORDERED: CYANOCOBALAMIN 1,000 MCG TAB PO SCH (09:00)
[2020-06-14] MEDS: GABAPENTIN 300 MG CAP PO SCH ×2 (09:00→17:00)
[2020-06-14] MEDS: CLOPIDOGREL BISULFATE 75 MG TAB PO SCH (09:00)
[2020-06-14] MEDS: RIVAROXABAN 15 MG TABLET PO SCH (09:00)
[2020-06-14] MEDS: LIOTHYRONINE SODIUM 5 MCG TAB PO SCH (09:00)
[2020-06-14] MEDS: FOLIC ACID 1 MG TAB PO SCH ×2 (09:00→17:00)
[2020-06-14] MEDS: ROPINIROLE HCL 0.25 MG TAB PO SCH ×2 (09:00→17:00)
[2020-06-14] MEDS ORDERED: LEVOTHYROXINE SODIUM 50 MCG TAB PO SCH (09:00)
[2020-06-14] MEDS: METOPROLOL TARTRATE 25 MG TAB PO SCH ×2 (09:00→17:00)
[2020-06-14] MEDS: BISACODYL 5 MG TAB EC PO SCH (09:00)
[2020-06-14] MEDS ORDERED: COLLAGENASE 5 GM TUBE TP SCH (09:00)
[2020-06-14] MEDS: ALBUTEROL SULFATE HFA 8GM INHALATION AEROSOL INH SCH (09:00)
[2020-06-14] MEDS: TAMSULOSIN HCL 0.4 MG CAP PO SCH ×2 (09:00→17:00)
[2020-06-14] MEDS: MUPIROCIN 2% OINT 22 GM TUBE TOP SCH (10:15)
--- NOTE | 2020-06-14 10:29 | Consultation ---
DATE OF CONSULTATION: 06/14/2020 REASON FOR CONSULTATION: Nonhealing ulceration to the left lower extremity with the patient being a jkm-kkihhgv-quxslbkup diabetic for 10+ years. HISTORY OF PRESENT ILLNESS: This is a pleasant 74-year-old white male who was seen at bedside, who relates he has had a nonhealing ulceration since 3-4 months ago and has a lot of swelling to both lower extremities. PAST MEDICAL HISTORY: Remarkable for zke-lwvnwrn-zdkakqyip diabetes, hypertension, glaucoma. PAST SURGICAL HISTORY: Remarkable for heart stent surgery. ALLERGIES: TO LYRICA. SOCIAL HISTORY: Stops smoking 10 years ago. Used to smoke a pack and a half for 20+ years. No recreational drug use. No alcohol. Lives with his . FAMILY HISTORY: Remarkable for diabetes. REVIEW OF SYSTEMS: CARDIAC: Denies any palpitations or arrhythmias. RESPIRATORY: Denies any shortness of breath or productive cough. GASTROINTESTINAL: Denies any diarrhea or constipation. PHYSICAL EXAMINATION: VITAL SIGNS: Afebrile, pulse rate 76, respirations 20, blood pressure 116/65, and O2 saturation 100%. Podiatric physical examination reveals the following: VASCULATURE: Pedal pulses of both the DP and PT are diminished. NEUROLOGICAL: Reveals some loss of protective sensation when utilizing Breeding-Clarke 5.07 monofilament wire. MUSCULOSKELETAL: Muscle mass to be symmetrical and swelling with pitting edema noted. Muscle strength is to be 4 to 5/5 to all muscle groups. DERMATOLOGICAL: Grade 2 ulceration dorsal aspect left foot, measuring 2.5 cm in diameter. No tendon or bone exposed down the subcutaneous tissue. LABORATORY DATA: Noted as a white blood cell count dropping from 17.14 to 12.13. ASSESSMENT: Grade 2 ulcer with pitting edema and cellulitis. PLAN: We will continue Bactroban ointment in a.m., start Santyl collagenase in p.m. to the ulceration, left foot. Continue offloading. We will continue to follow. Possible debridement may need to be performed depending on outpatient response. MICHAEL Carrera/STEVE /[id number]
--- NOTE | 2020-06-14 14:35 | Consultation ---
DATE OF CONSULTATION: 06/14/2020 Endocrine Consultation The patient of Dr. Short. Thank you very much for referring this patient. HISTORY OF PRESENT ILLNESS: This is a 74-year-old white male gentleman, who was referred to me for evaluation of hypoglycemia. The patient reportedly is a known diabetic in the past. He does not take any insulin or oral hypoglycemics at this time. 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 He does have history of hypoglycemia in the past as well. The patient also was found to have doqkz-hb-opuxuld renal failure. He has also history of hypertension and COPD. He has history of hypothyroidism, for which he is on Synthroid and also Cytomel. The patient is also on Plavix. He has history of coronary artery disease, hypertension, and on several medications at home. PHYSICAL EXAMINATION: GENERAL: Today, the patient is alert, awake, little bit apprehensive. He is moderately overweight. VITAL SIGNS: His heart rate is around 70, blood pressure is 100/60 mmHg. HEENT: Essentially unremarkable. Thyroid is palpable. Clinically, he is near euthyroid. CHEST: Bilateral vesicular breathing. He has mild bronchospasm. CARDIOVASCULAR: First and second sounds. There is no third or fourth heart sound. Ejection systolic murmur sound grade 2/6. CLINICAL IMPRESSION: Hypoglycemia, multifactorial, rule out inappropriate insulin secretion, history of diabetes mellitus, could be related to cellulitis of the left leg, chronic atrial fibrillation, and chronic renal failure. PLAN: At this time is to monitor his blood sugars closely. No oral hypoglycemics or insulin for now. We will also do check a C-peptide level if he drops his blood sugar again and a fasting C-peptide level. Thanks for referring this patient. I will be following this patient with you. MD MAYKEL Morrell/ADRIANL /[id number]
[2020-06-14 14:47] LABS: FREE T4 (FREE THYROXINE) 0.71 ng/dL (0.8-1.8); THYROID STIMULATING HORMONE 2.636 uIU/mL (0.350-4.940)
--- NOTE | 2020-06-14 16:32 | NUR ---
ORDERS RECEIVED FROM DR. GARCIA, CLAMP JIG ASSEMBLER: START ACETAZOLAMIDE 250 MG IV Q 12 HRS X3 DOSES STARTING 06/14 @1630. HOLD PM DOSE OF LASIX AND DRAW BMP IN AM.
--- NOTE | 2020-06-14 17:11 | Progress Note ---
DATE: SUBJECTIVE: The patient is feeling more comfortable. He has less dyspnea. He is not complaining of pain. He still has some leg swelling. PHYSICAL EXAMINATION: VITAL SIGNS: The blood pressure is 91/56 and the saturation is 99%. The pulse is 100. HEENT: Shows no facial swelling or erythema. LYMPHATIC: Shows no submandibular, cervical, or supraclavicular adenopathy. CARDIAC: Reveals regular rate and rhythm with normal S1 and S2. LUNGS: Auscultation of lungs reveals rhonchorous breath sounds bilaterally. There is no wheezing. ABDOMEN: Soft and nontender. There is no rebound or guarding. EXTREMITIES: Extremities shows 2+ leg edema. LABORATORY DATA: White blood cell count is 12.1, hemoglobin is 12.8, and the platelet count is 132. The BUN to creatinine ratio is 76 to 1.91 and the carbon dioxide is 43. Blood gases; 7.35, 80, and 293. Bicarb is 44. IMPRESSION: 1. Cellulitis with sepsis, present on admission. 2. Acute kidney injury. 3. Atrial fibrillation. 4. Chronic diastolic heart failure. 5. Chronic obstructive pulmonary disease. PLAN: 1. Continue current antibiotics. 2. Continue to monitor renal function and electrolytes. 3. Wean oxygen. 4. Out of bed as tolerated. Wellington Ross MD [facility]/MODL /[id number]
--- NOTE | 2020-06-14 18:22 | Progress Note ---
DATE: 06/14/2020 Renal Progress Note SUBJECTIVE: Events over the past 24 hours have been noted. The patient has no chest pain, no shortness of breath. PHYSICAL EXAMINATION: VITAL SIGNS: Blood pressure is 91/56, pulse 109, and afebrile. GENERAL: The patient is obese. HEENT: No increased JVD. CARDIOVASCULAR: Regular rate and rhythm. LUNGS: Decreased breath sounds. ABDOMEN: Distended. EXTREMITIES: He has about 2+ to 3+ edema of the legs. He also has some erythema of the legs. LABORATORY RESULTS: Sodium 141, potassium 3.9, chloride 89, bicarbonate 43, BUN and creatinine 46 and 1.9 respectively. IMPRESSION/PLAN: 1. Acute kidney injury superimposed on chronic kidney disease. 2. Chronic kidney disease, stage 3. 3. Acute kidney injury. 4. Contraction metabolic alkalosis. 5. Edema. 6. Cellulitis. 7. Diabetes. PLAN: The patient is developing contraction alkalosis. I will go ahead and start some Diamox on him 250 mg twice a day for the contraction alkalosis. I want to keep him on the diuretic at the same dose. We will keep him at the same dose just because normally I would have increased the dose, but he is very alkalotic, so we will keep him on the same dose of Lasix, but we will add the Diamox. Ather MD STEPHANIE Coulter/STEVE /[id number]
--- NOTE | 2020-06-14 19:00 | NUR ---
Bedside rounds completed with morning nurse. Pt alert and oriented to name, lying in bed HOB 75 degrees. Pt denies pain at this time. Call light within reach.
--- NOTE | 2020-06-14 20:30 | NUR ---
ALICIA Hayward informed of Vanco trough 11.4, ordered continue current dosage of Vancomycin.
[2020-06-14] MEDS: COLLAGENASE 5 GM TUBE TP SCH (21:00)
[2020-06-15] VITALS (8 sets, daily range): BP systolic 90–191; BP diastolic 50–121
--- NOTE | 2020-06-15 01:21 | NUR ---
DATE OF SERVICE: 06/14/2020 PCP: Dr. Christopher Summers. ATTENDING PHYSICIAN: Dr. Kavon Short CONSULTING PHYSICIANS: 1. Dr. Robert Mendez with Nephrology 2. Dr. Wellington Ross with Pulmonology 3. Dr. Horace Mcguire with Cardiology 4. Dr. Patrick Moy with Endocrinology 5. Dr. Urban Shaw with Podiatry 6. Dr. Peoples with Wound Care REVIEW OF SYSTEMS: A 14-point review of systems was completed; SOB improving. Reports that he walked with PT with RW today. Last BM was 06/11. He has chronic pain in his back, that radiates to his right side, which is sharp and at times severe. He has problems with balance. PHYSICAL EXAMINATION: VITAL SIGNS: Temperature 97.7, pulse 109, 78/54, respirations 24, SpO2 100%. GENERAL: Sitting on EOB, in no acute distress. LUNGS: Generally clear to auscultation. Diminished in the bases. Oxygen at 5 L/minute via nasal cannula. HEENT: EOMI. NECK: Supple. CARDIOVASCULAR: Irregularly irregular without murmur. ABDOMEN: Bowel sounds positive. Soft, obese. No guarding. EXTREMITIES: 2+ to 3+ leg edema bilaterally. Left lower extremity erythema with warmth noted, consistent with cellulitis. NEUROLOGICAL: GCS 15. Nonfocal. INTEGUMENTARY: He has an open wound on the dorsum aspect of the left foot, which is covered with a Kerlix dressing. He has a full-thickness left elbow wound also with dressing clean/dry/intact. The wound VAC has been removed. He has scattered bilateral arm hematomas. DIAGNOSTIC STUDIES: LABORATORY DATA: FSBG today 65, 150 (06/13 was 38, 56, 104, 146, 124, 194, and 258). BUN 76 (90, 98), creatinine 1.91 (2.38, 3.02), estimated GFR 35 (27, 20). Potassium 3.9 (3.1). Serum CO2 43 (36). TSH 2.636 (3.117), Free T4 0.71, PTH pending. Vancomycin Trough 11.4 06/13 WBC 12.13 (17.14), hemoglobin 12.8, hematocrit 42.6, and platelets 132. 8 Coronavirus PCR results pending. 06/13 HbA1c 5.7% 06/12 Urinalysis showed cloudy urine, pH 5.5, protein 1+, small amount of blood, negative nitrite, moderate amount of leukocyte esterase, rbc's 6 to 10, wbc's greater than 50, few epithelial cells, moderate bacteria. Urine C/S showed GNB, awaiting final results. IMAGING/OTHER: 06/14 Bilateral LE Arterial Doppler US: Pending. 06/13 CXR: left lung atelectasis and left rib fractures at ribs 6, 7, and perhaps 8. 06/13 12-lead EKG: atrial fibrillation with a heart rate of 123. No echocardiogram results noted. ASSESSMENT AND PLAN: 1. Fall at home, possibly due to hypoglycemia and/or septic shock: PT eval/treat. Maintain fall precautions. 2. Sepsis, s/p septic shock, POA (source left leg cellulitis, &/or UTI, &/or left foot wound): Lactic acid improved to 1.3 from 2.8. WBCs improving. Contin ue IV Vancomycin and Zosyn; monitor Vanc trough levels. Consider Infectious Disease consult if not consistently improving. 3. Left Leg Cellulitis with open wound of left foot: No line of demarcation noted. Warmth is noted at the left leg. Continue IV antibiotics. Wound Care consult. Offloading. Per Podiatry, Bactroban ointment q AM & Santyl Collagenase q PM to left foot wound. 4. ALISON on CKD3, Contracture Metabolic Alkalosis: Avoid nephrotoxic agents. Nephrology following. Monitor for improvement. BUN 76 (90, 98), creatinine 1.91 (2.38, 3.02), estimated GFR 35 (27, 20). Serum CO2 43 (36); on Diamox 250mg BID. 5. Atrial fibrillation with RVR: Cardiology following. Continue BB Metoprolol. Continue AC with Xarelto and aspirin. Monitor HR. 6. Chronic D CHF: Monitor fluid balance. No fluid volume overload seen on chest x-ray. 7. AECOPD with subacute left rib fractures and Oxygen Dependence: Continue supplemental oxygen at home dose of 5 L/minute via nasal cannula, per Pulmonology wean O2 if tolerated. Continue neb treatments. 8. Controlled HTN with CKD3 & Chronic D CHF: BP low at 78/54 this AM; 133/79 8/18. Cardiology following. Monitor. 9. Uncontrolled T2DM with Hypoglycemia and CKD3: Endocrinology following. HbA1c 5.7%. Continue renal ADA diet. Hold oral hypoglycemics & Insulin; if FSBG drops again plan is to obtain fasting C-peptide level. FSBG today 65, 150 (06/13 was 38, 56, 104, 146, 124, 194, and 258). 10. Chronic pain syndrome: Pain control. Resume home dose of oral Dilaudid. 11. Chronic left elbow wound, s/p wound VAC removal: Wound Care MD to follow. 12. Ambulatory dysfunction: PT eval and treat. OOB as tolerated. Per PT note dated 06/14: Patient demonstrates weakness, decreased balance/endurance affecting his ability to perform safe functional mobility. Ambulated 140 feet with RW with CGA, functional transfers with RW with CGA. 13. Acute UTI, POA: Urine C/S preliminary results show GNB; await final results. Continue vancomycin and Zosyn antibiotics for now. Prophylaxis: Xarelto and Protonix. 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 Monitoring progress. Current DC Plan is home with [facility]. Time spent 45 minutes. Billing code [id number].
[2020-06-15] MEDS: ACETAZOLAMIDE SODIUM 500 MG/VIAL IV SCH ×3 (05:00→17:26)
[2020-06-15] MEDS: LEVOTHYROXINE SODIUM 100 MCG TAB PO SCH (06:00)
[2020-06-15 06:14] LABS: BASOPHILS % 0.2 % (0.0-1.0); EOSINOPHILS # (AUTO) 0.1 (0.0-0.4); EOSINOPHILS % 1.7 % (0.0-6.0); HEMATOCRIT 32.3 % (38.2-49.6); HEMOGLOBIN 10.1 g/dL (14.0-18.0); LYMPHOCYTES # (AUTO) 0.7 (1.0-3.2); LYMPHOCYTES % 12.8 % (18.0-39.1); MEAN CORPUSCULAR HEMOGLOBIN 30.8 pg (28-32); MEAN CORPUSCULAR HGB CONC 31.3 g/dL (31-35); MEAN CORPUSCULAR VOLUME 98.5 fL (81-99); MONOCYTES # (AUTO) 0.4 (0.2-0.8); MONOCYTES % 7.9 % (4.4-11.3); NEUTROPHILS # (AUTO) 4.1 (2.1-6.9); NEUTROPHILS % 76.5 % (38.7-80.0); PLATELET COUNT 102 x10e3/uL (140-360); RED BLOOD COUNT 3.28 x10e6/uL (4.3-5.7); RED CELL DISTRIBUTION WIDTH 17.4 % (11.7-14.4)
--- NOTE | 2020-06-15 06:28 | NUR ---
Dr. Elizalde pagejustino for elevated BP 182/78. Pt denies pain or discomfort at this time.
--- NOTE | 2020-06-15 06:34 | NUR ---
Dr. Peoples called for consult, stated ok.
[2020-06-15 06:45] LABS: CALCIUM 9.2 mg/dL (8.4-10.2); CREATININE, SERUM 1.87 mg/dL (0.72-1.25)
--- NOTE | 2020-06-15 06:45 | NUR ---
SBAR BEDSIDE REPORT RECEIVED FROM BORIS HIGGINS SHIFT RN. PT FOUND RESTING IN BED IN NO ACUTE DISTRESS WITH NASAL CANNULA IN NARES AT 3L CONTINUOUS X6HGC=36% HR 98. PT IS ABLE TO MAKE NEEDS KNOWN AND DENIES ANY PAIN OR NEEDS AT THIS TIME. PT WAS EDUCATED ON FALL RISK PRECAUTIONS AND TO CALL WITH ANY NEEDS. PT VERBALIZED UNDERSTANDING. CALL LIGHT AND BELONGINGS PLACED NEARBY. WILL CONTINUE TO MONITOR.
[2020-06-15] MEDS: PANTOPRAZOLE SOD 40 MG TABEC PO SCH (07:30)
[2020-06-15] MEDS ORDERED: METOPROLOL TARTRATE INJ 1 MG/ML VIAL IV PRN (07:45)
[2020-06-15] MEDS ORDERED: HYDRALAZINE HCL 20 MG/ML VIAL IV PRN (07:45)
--- NOTE | 2020-06-15 08:50 | Consultation ---
DATE OF CONSULTATION: 06/15/2020 SUBJECTIVE: The patient is at bedside, doing significantly better. Denies any history of fever, chills, nausea, or vomiting. OBJECTIVE: VITAL SIGNS: Afebrile, pulse rate 103, respirations 20, blood pressure 183/78, and O2 saturation 98%. EXTREMITIES: Ulceration of left lower extremity is improving nicely, positive edema. LABORATORY DATA: Labs show white blood cell count going back normal from a peak of 17.14 to 5.3. ASSESSMENT: Grade 2 ulcer, healing with edema. PLAN: Continue local wound care. The patient is instructed upon discharge to follow up in the office. MICHAEL Carrera/STEVE /[id number]
[2020-06-15] MEDS: ROPINIROLE HCL 0.25 MG TAB PO SCH ×2 (09:00→17:00)
[2020-06-15] MEDS: LIOTHYRONINE SODIUM 5 MCG TAB PO SCH (09:00)
[2020-06-15] MEDS: COLLAGENASE 5 GM TUBE TP SCH (09:00)
[2020-06-15] MEDS: TAMSULOSIN HCL 0.4 MG CAP PO SCH ×2 (09:00→17:00)
[2020-06-15] MEDS: CLOPIDOGREL BISULFATE 75 MG TAB PO SCH (09:00)
[2020-06-15] MEDS: MUPIROCIN 2% OINT 22 GM TUBE TOP SCH (09:00)
[2020-06-15] MEDS: FOLIC ACID 1 MG TAB PO SCH ×2 (09:00→17:00)
[2020-06-15] MEDS: GABAPENTIN 300 MG CAP PO SCH ×2 (09:00→17:00)
[2020-06-15] MEDS: RIVAROXABAN 15 MG TABLET PO SCH (09:00)
[2020-06-15] MEDS: BUDESONIDE 0.5MG/2 ML NEB NEB SCH ×2 (09:00→19:00)
[2020-06-15] MEDS: ALBUTEROL SULF 0.083% NEB SOLN 3 ML NEB NEB SCH ×3 (09:00→19:25)
[2020-06-15] MEDS: BISACODYL 5 MG TAB EC PO SCH (09:00)
[2020-06-15] MEDS: METOPROLOL TARTRATE 25 MG TAB PO SCH ×2 (09:00→17:00)
[2020-06-15] MEDS: ASPIRIN 81 MG CHEW TAB PO SCH (09:00)
[2020-06-15] MEDS: ALBUTEROL SULFATE HFA 8GM INHALATION AEROSOL INH SCH (09:00)
--- NOTE | 2020-06-15 10:11 | Consultation ---
DATE OF CONSULTATION: Wound Consultation HISTORY OF PRESENT ILLNESS: A 74-year-old male patient with history of multiple medical problems including gout, hypothyroidism, atrial fibrillation, congestive heart failure, COPD, cirrhosis, admitted with dizziness, hypoglycemia, syncope, passed out for 4 hours, has chronic nonhealing ulcer to the left dorsal foot and left elbow wound consult was called. The patient has left elbow bursa infected and has chronic drainage, has a wound measuring 1.5 x 1.5 cm with undermining for 2.5 cm, moderate clear drainage noted. He has bilateral leg edema with fluid weeping through the left dorsal foot. Also was having a wound VAC, which was sucking all the edema fluid preventing from wound healing. PAST MEDICAL HISTORY: Refer HPI. BPH, chronic back pain, glaucoma, oxygen-dependent COPD 4-5 L. PERSONAL HISTORY: Smoked 1-1/2 pack per day for 50 years. PAST SURGICAL HISTORY: PTCA with a five coronary stent, prostate surgery, pain pump placement. ALLERGIES: TO PREGABALIN AND NEURONTIN. PHYSICAL EXAMINATION: GENERAL: Height is 69 inches, weight 210 pounds. HEENT: Normal. NECK: No JVD. LUNGS: Bilateral air entry diminished. CVS: Normal. ABDOMEN: Soft. Bowel sounds normal. EXTREMITIES: Lower extremities, bilateral leg edema present with a wound on the left dorsal foot measures 2.3 cm x 2 cm x 0.3 cm, 50% slough with moderate drainage present. Drainage is from the edema. Left elbow olecranon bursa wound noted. The patient had a surgery before, however, wound is nonhealing. Most likely, the patient has bursal remnant inside secreting synovial fluid and keeps it nonhealing. ASSESSMENT: Left dorsal foot ulcer secondary to combination of PVD and leg edema. Left elbow ulcer from olecranon bursa. PLAN: We will apply Aquacel, Kerlix and Coban, gentle compression to decrease the oozing of the fluid from the leg. If the wound does not improve, the patient may need further intervention for PVD and pack the left elbow wound with Aquacel, 4 x 4 and tape. May need orthopedic intervention to remove the bursa under secondary closure, if the wound does not improve with the local treatment. Thank you for consultation. We will follow up. MD NATALIO Rothman/ADRIANL /[id number]
--- NOTE | 2020-06-15 11:01 | Progress Note ---
DATE: Cardiology Progress Note SUBJECTIVE: The patient feeling well. Denies any chest pain or shortness of breath. OBJECTIVE: VITAL SIGNS: Temperature is 97.4, heart rate is 103, respirations are 20, blood pressure is 182/78, ox saturation 98% on 4 L nasal cannula. GENERAL: He is a chronically ill-appearing man, seated at bedside, in no apparent distress. CARDIOVASCULAR: Irregularly irregular, tachycardic. LUNGS: Diminished breath sounds at bases. ABDOMEN: Soft, nontender, nondistended. EXTREMITIES: 1+ edema. CARDIOVASCULAR MEDICATIONS: Reviewed. LABORATORY DATA: Shows a hemoglobin of 10.1. Creatinine 1.87, potassium 3. IMPRESSION: 1. Acute on chronic kidney disease. 2. Chronic diastolic heart failure. 3. Debility. 4. History of falls. 5. Hypoglycemia, resolved. 6. Atrial fibrillation. 7. Hypertension. 8. Left upper extremity wound. Increase metoprolol to 25 mg p.o. b.i.d. Continue all other current cardiovascular medications. Resume diuretics as tolerated. Continue monitor daily labs. DO NEVIN Sanchez/MODL /[id number]
[2020-06-15] MEDS: PIPERACILLIN/TAZO 2.25 GM 50 ML IV SCH ×2 (12:00→20:30)
[2020-06-15] MEDS ORDERED: POTASSIUM CHLORIDE 20 MEQ TAB CR PO SCH (17:00)
--- NOTE | 2020-06-15 18:44 | Progress Note ---
DATE: 06/15/2020 Renal Progress Note SUBJECTIVE: Events over the past 24 hours have been noted. The patient has no chest pain. No shortness of breath. PHYSICAL EXAMINATION: VITAL SIGNS: Blood pressure 108/71, pulse 109, respiration 16. The patient is obese. HEENT: No increased JVD. CARDIOVASCULAR: Tachycardic, regular rhythm. LUNGS: Clear to auscultation bilaterally. ABDOMEN: The patient is obese with positive bowel sounds. No rebound. No guarding. EXTREMITIES: The patient has edema of the legs. The left leg is wrapped with Sanjay wrap. There is a wound on the dorsum of his foot. LABORATORY RESULTS: Sodium 138, potassium 3, chloride 89, bicarbonate 40, BUN and creatinine 69 and 1.87. His hemoglobin and hematocrit 10 and 32 respectively. IMPRESSION/PLAN: 1. Acute kidney injury superimposed on chronic kidney disease. 2. Chronic kidney disease, stage 3. 3. Contraction metabolic alkalosis. 4. Edema. 5. Wound of leg. 6. Diabetes. The patient has a negative fluid balance. The contraction of alkalosis is a little bit better today. Diamox was given for three doses. The patient underwent an ultrasound of his bilateral lower extremities, the full report is yet to come out. I will go ahead and hold the Lasix until the metabolic contraction alkalosis can resolve some more. He is already in a negative fluid balance and I think much of the edema of his leg especially is because of the wound and chronic lymphedema and also the patient's blood pressure was low. However, looking at the patient's blood pressure the trend and he has some blood pressures which are very high, it looks like Cardiology is increasing his metoprolol. I think we will hold the Lasix from 24 to 48 hours and then have it reintroduced. Ather MD STEPHANIE Coulter/STEVE /[id number]
--- NOTE | 2020-06-15 19:15 | NUR ---
Received shift report from morning nurse. Pt alert and oriented, lying in bed HOB 60 degrees, denies pain at this time. Call light within reach.
--- NOTE | 2020-06-15 20:22 | NUR ---
DATE OF SERVICE: 06/15/2020 PCP: Dr. Christopher Summers. ATTENDING PHYSICIAN: Dr. Kavon Short CONSULTING PHYSICIANS: 1. Dr. Robert Mendez with Nephrology 2. Dr. Wellington Ross with Pulmonology 3. Dr. Horace Mcguire with Cardiology 4. Dr. Patrick Moy with Endocrinology 5. Dr. Urban Shaw with Podiatry 6. Dr. Peoples with Wound Care REVIEW OF SYSTEMS: A 14-point review of systems was completed; SOB improving. Reports that he walked with PT with RW today. Last BM was 06/11. He has chronic pain in his back, that radiates to his right side, which is sharp and at times severe. He has problems with balance. Overall feeling better. PHYSICAL EXAMINATION: VITAL SIGNS: Temperature 97.9, pulse 103, 182/78, respirations 24, SpO2 100%. Labile BPs noted. At 00:10 BP 99/61, at 04:50 BP 191/121. I/O: 1175/1100 GENERAL: Supine, in no acute distress. LUNGS: Generally clear to auscultation. Diminished in the bases. Oxygen at home dose 5 L/minute via nasal cannula. HEENT: EOMI. NECK: Supple. CARDIOVASCULAR: Irregularly irregular without murmur. ABDOMEN: Bowel sounds positive. Soft, obese. No guarding. EXTREMITIES: 2+ to 3+ leg edema bilaterally. Left lower extremity erythema with warmth noted, consistent with cellulitis. NEUROLOGICAL: GCS 15. Nonfocal. INTEGUMENTARY: He has an open wound on the dorsum aspect of the left foot, which is covered with a Kerlix dressing. He has a full-thickness left elbow wound also with dressing clean/dry/intact. The wound VAC has been removed. He has scattered bilateral arm hematomas. DIAGNOSTIC STUDIES: LABORATORY DATA: FSBG today 80, 68, 126 (was 65, 150 06/14 & on 06/13 was 38, 56, 104, 146, 124, 194, and 258). Cyclic Citrullinated Peptide IgG Ab pending. WBC 5.3, H/H=10.1/32.3. BUN 69 (76, 90, 98), creatinine 1.87 (1.91, 2.38, 3.02), estimated GFR 35 (35, 27, 20). Potassium 3.0 (3.9, 3.1). Serum CO2 40 (43, 36). TSH 2.636 (3.117), Free T4 0.71, PTH 53. 06/14 Vancomycin Trough 11.4 06/13 WBC 12.13 (17.14), hemoglobin 12.8, hematocrit 42.6, and platelets 132. 06/13 Coronavirus PCR negative. 06/13 HbA1c 5.7% 06/12 Urinalysis showed cloudy urine, pH 5.5, protein 1+, small amount of blood, negative nitrite, moderate amount of leukocyte esterase, rbc's 6 to 10, wbc's greater than 50, few epithelial cells, moderate bacteria. 06/13 Final Urine C/S: MDRO Pseudomonas Aeruginosa; URINE CULTURE Final Organism 1 PSEUDOMONAS AERUGINOSA COLONY COUNT >=100,000 cfu/ml PSE AERUGI M.I.C. RX --------- ---- TRIMETHOPRIM/SULFAMETHOXAZOLE > R* AMPICILLIN/SULBACTAM(UNASYN). >11/06 R* AZTREONAM 8 S CEFTAZIDIME 4 S CEFEPIME (MAXIPIME) 8 S CIPROFLOXACIN (CIPRO) <=1 S ERTAPENEM (INVANZ) 2 R* GENTAMICIN (GARAMYCIN) <=4 S IMIPENEM (PRIMAXIN) <=1 S LEVOFLOXACIN (LEVAQUIN) <=2 S MEROPENEM (MERREM) <=1 S TOBRAMYCIN <=4 S AMIKACIN <=16 S PIPERACILLIN/TAZOBACT (ZOSYN) <=16 S S = SUSCEPTIBLE I = INTERMEDIATE R = RESISTANT Dionisio = Beta-lactamase positive ESBL = Extended spectrum beta-lactamase R* = Predicted resistant interpretation LUISA = mcg/ml (mg/L) IMAGING/OTHER: 06/14 Bilateral LE Arterial Doppler US: Final results are pending. 06/13 CXR: left lung atelectasis and left rib fractures at ribs 6, 7, and perhaps 8. 06/13 12-lead EKG: atrial fibrillation with a heart rate of 123. No echocardiogram results noted. ASSESSMENT AND PLAN: 1. Fall at home, possibly due to hypoglycemia and/or septic shock: PT eval/treat. Maintain fall precautions. 2. Sepsis, s/p septic shock, POA (source left leg cellulitis, &/or UTI, &/or left foot wound): Lactic acid improved to 1.3 from 2.8. WBCs improving. Contin ue IV Vancomycin and Zosyn; monitor Vanc trough levels. Consider Infectious Disease consult if not consistently improving. 3. Left Leg Cellulitis with open wound of left foot, possible PAD: No line of demarcation noted. Warmth is noted at the left leg. Continue IV antibiotics. W ound Care consult. Offloading. Per Podiatry, Bactroban ointment q AM & Santyl Collagenase q PM to left foot wound. Final results of Bilateral LE Arterial Doppler US pending. 4. MDRO Pseudomonas Aeruginosa Acute UTI, POA: Continue Vancomycin and Zosyn antibiotics for now; sensitive to Zosyn. 5. ALISON on CKD3, Metabolic Contracture Alkalosis: Avoid nephrotoxic agents. Nephrology following. Monitor for improvement. BUN 69 (76, 90, 98), creatinine 1.87 (1.91, 2.38, 3.02), estimated GFR 35 (35, 27, 20). Serum CO2 40 (43, 36); on Diamox 250mg BID, Lasix discontinued. Strict I/O. 5. Atrial fibrillation with RVR: Cardiology following. Continue BB Metoprolol. Continue AC with Xarelto and aspirin. Monitor HR. HR today around 100-115. 6. Chronic D CHF: Monitor fluid balance. No fluid volume overload seen on chest x-ray. Currently not on fluid restriction. Cardiology & Nephrology followi shaila joya recs. 7. AECOPD with subacute left rib fractures and Oxygen Dependence: Continue supplemental oxygen at home dose of 5 L/minute via nasal cannula, per Pulmonolog y wean O2 if tolerated. Continue neb treatments. 8. Uncontrolled HTN with CKD3 & Chronic D CHF: Labile BP as described above. Cardiology following; Metoprolol increased to 25mg BID. Monitor. 9. Uncontrolled T2DM with Hypoglycemia and CKD3: Endocrinology following. HbA1c 5.7%. Continue renal ADA diet. Hold oral hypoglycemics & Insulin; Fasting Cyclic Citrullinated Peptide IgG Ab pending. FSBG today 80, 68, 126. 10. Acute Hypokalemia: Potassium 3.0 (3.9, 3.1). Defer to Nephrology. 11. Chronic pain syndrome: Pain control. Resume home dose of oral Dilaudid. 12. Chronic left elbow wound, s/p wound VAC removal: Wound Care MD following. 13. Ambulatory dysfunction: PT eval and treat. OOB as tolerated. Per PT note dated 06/14: Patient demonstrates weakness, decreased balance/endurance affecting his ability to perform safe functional mobility. Ambulated 140 feet with RW with CGA, functional transfers with RW with CGA. Prophylaxis: Xarelto and Protonix. Discharge Planning: [facility] using [facility] 3 days[facility]week, receiving wound care and had a wound vac on Lt elbow wound. Monitoring progress. Current D C Plan is home with home health. Time spent 45 minutes. Billing code [id number].
[2020-06-15] MEDS: VANCOMYCIN 1GM/NS 250 ML 250 ML IV SCH (21:00)
[2020-06-15] MEDS: LATANOPROST(OPTH) 2.5 ML BTL OU SCH (21:00)
[2020-06-15] MEDS: INSULIN LISPRO 100 UNIT/1 ML 3ML VIAL SQ SCH (21:00)
[2020-06-15] MEDS: SERTRALINE HCL 50 MG TAB PO SCH (21:00)
[2020-06-15] MEDS: ALLOPURINOL 300 MG TAB PO SCH (21:00)
[2020-06-16] VITALS (8 sets, daily range): BP systolic 110–129; BP diastolic 53–94
[2020-06-16] MEDS: PIPERACILLIN/TAZO 2.25 GM 50 ML IV SCH ×3 (04:00→21:03)
[2020-06-16] MEDS: LEVOTHYROXINE SODIUM 100 MCG TAB PO SCH (06:00)
[2020-06-16] MEDS: ALBUTEROL SULF 0.083% NEB SOLN 3 ML NEB NEB SCH ×4 (06:30→07:28)
[2020-06-16] MEDS: BUDESONIDE 0.5MG/2 ML NEB NEB SCH ×2 (06:30→19:00)
[2020-06-16] MEDS: INSULIN LISPRO 100 UNIT/1 ML 3ML VIAL SQ SCH ×4 (07:30→21:00)
[2020-06-16] MEDS: PANTOPRAZOLE SOD 40 MG TABEC PO SCH (08:48)
[2020-06-16] MEDS: ASPIRIN 81 MG CHEW TAB PO SCH (08:49)
[2020-06-16] MEDS: LIOTHYRONINE SODIUM 5 MCG TAB PO SCH (08:49)
[2020-06-16] MEDS: GABAPENTIN 300 MG CAP PO SCH ×2 (08:50→16:56)
[2020-06-16] MEDS: TAMSULOSIN HCL 0.4 MG CAP PO SCH ×2 (08:50→16:55)
[2020-06-16] MEDS: FOLIC ACID 1 MG TAB PO SCH ×2 (08:50→16:56)
[2020-06-16] MEDS: CLOPIDOGREL BISULFATE 75 MG TAB PO SCH (08:50)
[2020-06-16] MEDS: METOPROLOL TARTRATE 25 MG TAB PO SCH ×2 (08:50→16:56)
[2020-06-16] MEDS: RIVAROXABAN 15 MG TABLET PO SCH (08:51)
[2020-06-16] MEDS: ROPINIROLE HCL 0.25 MG TAB PO SCH ×2 (08:51→16:56)
[2020-06-16] MEDS: MUPIROCIN 2% OINT 22 GM TUBE TOP SCH (08:59)
[2020-06-16] MEDS: BISACODYL 5 MG TAB EC PO SCH (08:59)
[2020-06-16] MEDS: COLLAGENASE 5 GM TUBE TP SCH (08:59)
[2020-06-16] MEDS: ALBUTEROL SULFATE HFA 8GM INHALATION AEROSOL INH SCH (09:00)
[2020-06-16 09:04] LABS: BASOPHILS % 0.4 % (0.0-1.0); EOSINOPHILS # (AUTO) 0.1 (0.0-0.4); EOSINOPHILS % 1.9 % (0.0-6.0); HEMATOCRIT 34.1 % (38.2-49.6); HEMOGLOBIN 10.2 g/dL (14.0-18.0); LYMPHOCYTES # (AUTO) 0.7 (1.0-3.2); LYMPHOCYTES % 14.1 % (18.0-39.1); MEAN CORPUSCULAR HEMOGLOBIN 29.5 pg (28-32); MEAN CORPUSCULAR HGB CONC 29.9 g/dL (31-35); MEAN CORPUSCULAR VOLUME 98.6 fL (81-99); MONOCYTES # (AUTO) 0.4 (0.2-0.8); MONOCYTES % 7.9 % (4.4-11.3); NEUTROPHILS # (AUTO) 3.6 (2.1-6.9); NEUTROPHILS % 75.1 % (38.7-80.0); PLATELET COUNT 125 x10e3/uL (140-360); RED BLOOD COUNT 3.46 x10e6/uL (4.3-5.7); RED CELL DISTRIBUTION WIDTH 17.2 % (11.7-14.4)
[2020-06-16 09:24] LABS: ANION GAP 17.2 mmol/L (8-16); CALCIUM 9.4 mg/dL (8.4-10.2); CREATININE, SERUM 2.44 mg/dL (0.72-1.25); MAGNESIUM 2.1 MG/DL (1.3-2.1); POTASSIUM 3.2 mmol/L (3.5-5.1)
--- NOTE | 2020-06-16 09:58 | NUR ---
Notified Dr. Mendez of lab results and received orders for Kdur 40mEq PO x1 dose.
[2020-06-16] MEDS ORDERED: POTASSIUM CHLORIDE 20 MEQ TAB CR PO ONE (10:25)
--- NOTE | 2020-06-16 17:44 | Progress Note ---
DATE: SUBJECTIVE: The patient is feeling better. He is eager to go home. He is on a nasal cannula. PHYSICAL EXAMINATION: VITAL SIGNS: The blood pressure is 129/76 and saturation is 97%. Heart rate is normal. HEENT: Shows no facial swelling or erythema. LYMPHATIC: Shows no submandibular, cervical, or supraclavicular adenopathy. CARDIAC: Reveals regular rate and rhythm with normal S1 and S2. LUNGS: Auscultation of lungs reveals crackles at the bases. There is no wheezing. ABDOMEN: Soft and nontender. There is no rebound or guarding. EXTREMITIES: Shows no leg edema or calf tenderness. There is no cyanosis or clubbing. SKIN: Shows no rashes. NEUROLOGICAL: Shows no focal abnormalities. IMPRESSION: 1. Acute kidney injury. 2. Atrial fibrillation. 3. Chronic diastolic heart failure. 4. Chronic obstructive pulmonary disease. 5. Urinary tract infection with Pseudomonas, present on admission. 6. Cellulitis. 7. Diabetes. PLAN: 1. Transition to oral antibiotics. 2. Arrange for discharge home. 3. Continue to monitor renal function and electrolytes. Wellington Ross MD [facility]/MODL /[id number]
[2020-06-16] MEDS: LATANOPROST(OPTH) 2.5 ML BTL OU SCH (21:28)
[2020-06-16] MEDS: SERTRALINE HCL 50 MG TAB PO SCH (21:28)
[2020-06-16] MEDS: ALLOPURINOL 300 MG TAB PO SCH (21:28)
[2020-06-16] MEDS: VANCOMYCIN 1GM/NS 250 ML 250 ML IV SCH (22:14)
[2020-06-17] VITALS (8 sets, daily range): BP systolic 95–135; BP diastolic 65–86
[2020-06-17] MEDS: ALBUTEROL SULF 0.083% NEB SOLN 3 ML NEB NEB SCH ×3 (04:21→19:31)
[2020-06-17] MEDS: PIPERACILLIN/TAZO 2.25 GM 50 ML IV SCH ×3 (04:23→22:01)
[2020-06-17] MEDS: LEVOTHYROXINE SODIUM 100 MCG TAB PO SCH (06:18)
[2020-06-17 06:45] LABS: ANION GAP 16.2 mmol/L (8-16); CALCIUM 9.2 mg/dL (8.4-10.2); CREATININE, SERUM 2.3 mg/dL (0.72-1.25); POTASSIUM 3.2 mmol/L (3.5-5.1)
[2020-06-17] MEDS: BUDESONIDE 0.5MG/2 ML NEB NEB SCH ×2 (07:00→19:00)
--- NOTE | 2020-06-17 07:00 | NUR ---
The pt is in bed awake and reports he needs a bed change due urine spillage. Complete bed change executed and the pt. is sitting in the chair for breakfast.
[2020-06-17] MEDS: PANTOPRAZOLE SOD 40 MG TABEC PO SCH (07:30)
[2020-06-17] MEDS: INSULIN LISPRO 100 UNIT/1 ML 3ML VIAL SQ SCH ×4 (07:30→22:35)
[2020-06-17] MEDS: TAMSULOSIN HCL 0.4 MG CAP PO SCH ×2 (09:53→17:34)
[2020-06-17] MEDS: FUROSEMIDE 40 MG TAB PO SCH ×2 (09:53→17:36)
[2020-06-17] MEDS: CLOPIDOGREL BISULFATE 75 MG TAB PO SCH (09:53)
[2020-06-17] MEDS: COLLAGENASE 5 GM TUBE TP SCH (09:53)
[2020-06-17] MEDS: MUPIROCIN 2% OINT 22 GM TUBE TOP SCH (09:53)
[2020-06-17] MEDS: GABAPENTIN 300 MG CAP PO SCH ×2 (09:53→17:36)
[2020-06-17] MEDS: ASPIRIN 81 MG CHEW TAB PO SCH (09:53)
[2020-06-17] MEDS: LIOTHYRONINE SODIUM 5 MCG TAB PO SCH (09:53)
[2020-06-17] MEDS: RIVAROXABAN 15 MG TABLET PO SCH (09:53)
[2020-06-17] MEDS: FOLIC ACID 1 MG TAB PO SCH ×2 (09:53→17:34)
[2020-06-17] MEDS: BISACODYL 5 MG TAB EC PO SCH (09:53)
[2020-06-17] MEDS: ROPINIROLE HCL 0.25 MG TAB PO SCH ×2 (09:53→17:36)
[2020-06-17] MEDS: ALBUTEROL SULFATE HFA 8GM INHALATION AEROSOL INH SCH (09:53)
[2020-06-17] MEDS: METOPROLOL TARTRATE 25 MG TAB PO SCH ×2 (09:54→17:36)
[2020-06-17] MEDS ORDERED: POTASSIUM CHLORIDE 20 MEQ TAB CR PO ONE (13:09)
--- NOTE | 2020-06-17 16:32 | NUR ---
Nutrition Screen Note RD Recommendation for Physician: -Recommend diabetic/heart healthy diet Plan of Care: RD following, monitoring for tolerance and adequacy Nutrition reason for involvement: length of stay Primary Diagnose(s):acute chronic renal failure, afib, cellulitis, open wound left foot, and septic shock PMH: chronic diastolic congestive heart failure, coronary artery disease, atrial fibrillation, hypertension, hyperlipidemia, chronic kidney disease stage 3, COPD, diabetes mellitus, autonomic neuropathy, ankylosing spondylitis, chronic pain syndrome, chronic wounds requiring wound VAC such as the one on the left elbow, there is a pre-existing wound on the dorsum aspect left foot, BPH, chronic back pain, glaucoma, gout, oxygen dependence Ht: 69 in Wt:210 lb BMI: 31.0 kg/m2 IBW:[address] Assessment: (06/17/20) Chart reviewed. Labs and meds reviewed. Pt is a 74 year old male admitted with acute chronic renal failure, afib, cellulitis, open wound left foot, and septic shock. Pt reports eating about 75% of his meals. 100% meal intake recorded in chart. Pt stated he usually weighs 220 lbs; however, pt currently has a weight of 210 lbs in chart. No N/V/D/C or chewing/swallowing issues. Pt requested heart failure diet education materials which were provided. Pt was not interested in verbal education and stated he will read materials at a later time. Encouraged pt to contact RD if he had questions. Will continue to monitor. Current Diet: renal/1800 diabetic diet Malnutrition Evaluation (06/17/20) The patient does not meet criteria for a specified degree of malnutrition at this time. Will re-evaluate at follow-up as appropriate. Diet Education Needs Assessment: (06/17) Diet education indicated, Pt requested heart failure diet education materials which were provided. Pt was not interested in verbal education and stated he will read materials at a later time. Encouraged pt to contact RD if he had questions. Nutrition Care Level: low Signed: Emiliana Foster, RD, LD
[2020-06-17] MEDS ORDERED: METOPROLOL TARTRATE 25 MG TAB PO ONE (17:00)
--- NOTE | 2020-06-17 17:33 | Progress Note ---
DATE: SUBJECTIVE: The patient is feeling better. He is eager to go home. PHYSICAL EXAMINATION: VITAL SIGNS: Blood pressure is 197/65, saturation is 98%. HEENT: Shows no facial swelling or erythema. CARDIAC: Reveals regular rate and rhythm with normal S1, S2. LUNGS: Auscultation of lungs reveals rhonchorous breath sounds bilaterally. There is no wheezing. ABDOMEN: Soft and nontender. There is no rebound or guarding. EXTREMITIES: Shows no leg edema or calf tenderness. There is no cyanosis or clubbing. SKIN: Shows no rashes. NEUROLOGICAL: Shows no focal abnormalities. LABORATORY DATA: Hemoglobin is 10.2, and the BUN to creatinine ratio is 69 to 2.3 and potassium is 3.2. IMPRESSION: 1. Acute kidney injury. 2. Atrial fibrillation. 3. Chronic diastolic heart failure. 4. Chronic obstructive pulmonary disease. 5. Diabetes. 6. Urinary tract infection with Pseudomonas. PLAN: 1. Continue current antibiotics. 2. Arrange for discharge home. Wellington Ross MD [facility]/ADRIANL /[id number]
--- NOTE | 2020-06-17 18:59 | Progress Note ---
DATE: Cardiology Progress Note SUBJECTIVE: The patient appears to be confused and agitated. No chest pain or shortness of breath. Reports lower extremity swelling. OBJECTIVE: VITAL SIGNS: Temperature is 98.1, heart rate is 91, respirations 18, blood pressure is 97/65, and oxygen saturation 98% on 3 L nasal cannula. GENERAL: Chronically ill-appearing elderly man, seated at bedside, appears agitated and confused. CARDIOVASCULAR: Irregularly irregular. LUNGS: Diminished breath sounds at bases. ABDOMEN: Soft, obese, nontender. EXTREMITIES: Pitting edema. VASCULAR: Diminished pulses. CARDIOVASCULAR MEDICATIONS: Reviewed. LABORATORY DATA: Reviewed, creatinine is 2.3 and potassium 3.2. IMPRESSION: 1. Aabvu-cd-nbmrqts kidney disease. 2. Hauno-mm-fvmrqtw diastolic heart failure. 3. Debility. 4. History of falls. 5. Hypoglycemia, resolved. 6. Atrial fibrillation right ventricular response. 7. Hypertension. 8. Lower extremity wound. 9. Peripheral arterial disease. RECOMMENDATIONS: We will increase metoprolol 25 mg p.o. b.i.d. Continue all other current cardiovascular medications. The patient does appear to have a significant arterial stenosis of the left lower extremity; however, his creatinine is elevated and angiography will not be performed at this point in time. Continue diuretics for adequate diuresis. Jimbo Elizalde DO [facility]/MODL /[id number]
--- NOTE | 2020-06-17 19:20 | NUR ---
Received bed side report, introduced self to patient. safety and fall precautions maintained as per hospital protocols: bed in lowest position and locked, needed items beside bed, call cassidy close to patient, patient instructed to use it to call nurses for any assistance needed, patient verbalized understanding. patient is currently stable will continue to monitor.
[2020-06-17] MEDS: VANCOMYCIN 1GM/NS 250 ML 250 ML IV SCH (21:00)
[2020-06-17] MEDS: LATANOPROST(OPTH) 2.5 ML BTL OU SCH (22:01)
[2020-06-17] MEDS: SERTRALINE HCL 50 MG TAB PO SCH (22:01)
[2020-06-17] MEDS: ALLOPURINOL 300 MG TAB PO SCH (22:01)
--- NOTE | 2020-06-17 23:06 | NUR ---
Vanc. Trough is 21.6. Carmen BUSINESS SYSTEMS ADMINISTRATOR made aware ordered to hold dose and recheck random am.
[2020-06-18] VITALS (8 sets, daily range): BP systolic 83–108; BP diastolic 44–74
[2020-06-18] MEDS: PIPERACILLIN/TAZO 2.25 GM 50 ML IV SCH ×2 (04:39→12:16)
--- NOTE | 2020-06-18 06:45 | NUR ---
patient endorsed to next shift for continuity of care.
[2020-06-18] MEDS: LEVOTHYROXINE SODIUM 100 MCG TAB PO SCH (06:53)
[2020-06-18] MEDS: FUROSEMIDE 40 MG TAB PO SCH ×2 (06:53→16:39)
[2020-06-18 06:56] LABS: ANION GAP 14.4 mmol/L (8-16); CREATININE, SERUM 2.51 mg/dL (0.72-1.25); POTASSIUM 3.4 mmol/L (3.5-5.1)
[2020-06-18] MEDS: INSULIN LISPRO 100 UNIT/1 ML 3ML VIAL SQ SCH ×4 (07:30→21:00)
[2020-06-18] MEDS: ALBUTEROL SULFATE HFA 8GM INHALATION AEROSOL INH SCH (08:10)
[2020-06-18] MEDS: BUDESONIDE 0.5MG/2 ML NEB NEB SCH ×3 (08:20→19:10)
[2020-06-18] MEDS: TAMSULOSIN HCL 0.4 MG CAP PO SCH ×2 (08:51→16:59)
[2020-06-18] MEDS: MUPIROCIN 2% OINT 22 GM TUBE TOP SCH (08:51)
[2020-06-18] MEDS: COLLAGENASE 5 GM TUBE TP SCH (08:51)
[2020-06-18] MEDS: ROPINIROLE HCL 0.25 MG TAB PO SCH ×2 (08:51→16:59)
[2020-06-18] MEDS: ASPIRIN 81 MG CHEW TAB PO SCH (08:51)
[2020-06-18] MEDS: GABAPENTIN 300 MG CAP PO SCH ×2 (08:51→16:59)
[2020-06-18] MEDS: RIVAROXABAN 15 MG TABLET PO SCH (08:51)
[2020-06-18] MEDS: CLOPIDOGREL BISULFATE 75 MG TAB PO SCH (08:51)
[2020-06-18] MEDS: FOLIC ACID 1 MG TAB PO SCH ×2 (08:51→16:59)
[2020-06-18] MEDS: PANTOPRAZOLE SOD 40 MG TABEC PO SCH (08:51)
[2020-06-18] MEDS: LIOTHYRONINE SODIUM 5 MCG TAB PO SCH (08:51)
[2020-06-18] MEDS: BISACODYL 5 MG TAB EC PO SCH (08:51)
[2020-06-18] MEDS: METOPROLOL TARTRATE 25 MG TAB PO SCH ×2 (08:53→16:39)
[2020-06-18] MEDS: ALBUTEROL SULF 0.083% NEB SOLN 3 ML NEB NEB SCH ×2 (08:57→18:55)
--- NOTE | 2020-06-18 13:02 | Progress Note ---
DATE: Cardiology Progress Note SUBJECTIVE: The patient is feeling better today. He is asking to go home. Denies any chest pain or shortness of breath. OBJECTIVE: VITAL SIGNS: Temperature is 98.1, heart rate is 90, respirations are 18, blood pressure is 105/73, and oxygen saturation is 100% on 4 L nasal cannula. GENERAL: He is a chronically ill-appearing man, seated at bedside, in no apparent distress. CARDIOVASCULAR: Irregularly irregular. Normal rate. LUNGS: Diminished breath sounds at bases. ABDOMEN: Soft, obese, nontender. EXTREMITIES: Pitting edema. Decreased pulses. TELEMETRY: Telemetry monitoring shows atrial fibrillation. LABORATORY DATA: Reviewed shows a creatinine of 2.5, potassium of 3.4. IMPRESSION: 1. Acute on chronic kidney disease. 2. Acute on chronic diastolic heart failure. 3. Debility. 4. History of fall. 5. Atrial fibrillation. 6. Hypertension. 7. Lower extremity wound. 8. Peripheral arterial disease. RECOMMENDATION: His heart rate is better controlled on the increased dose of metoprolol 25 mg p.o. b.i.d. Continue all other current cardiovascular medications. Arterial Doppler showed a significant stenosis of the left lower extremity indicative of aortoiliac disease. However, his creatinine is elevated and an angiography will not be performed at this time. Continue diuretics for diuresis. We will continue to follow. DO NEVIN Sanchez/STEVE /[id number]
--- NOTE | 2020-06-18 13:04 | NUR ---
aware of BP 86/52. See orders
[2020-06-18] MEDS ORDERED: POTASSIUM CHLORIDE 20 MEQ TAB CR PO NR (13:15)
[2020-06-18] MEDS ORDERED: SODIUM CHLORIDE 0.9% 250ML 250 ML IV NR (13:30)
[2020-06-18] MEDS ORDERED: SODIUM CHLORIDE 0.9% 250ML 250 ML IV ONE (15:00)
[2020-06-18] MEDS ORDERED: FUROSEMIDE INJ 10 MG/ML 4 ML VIAL INJ NR (15:00)
[2020-06-18] MEDS: CEFEPIME 1GM/NS 0.9% 50 ML 50 ML IV SCH (16:30)
--- NOTE | 2020-06-18 19:21 | NUR ---
Report given to oncoming nurse of patient's status. Resting in bed. No s/s of acute distress noted. Side rails upx2, call light within reach.
[2020-06-18] MEDS: VANCOMYCIN 1GM/NS 250 ML 250 ML IV SCH (21:00)
[2020-06-18] MEDS: LATANOPROST(OPTH) 2.5 ML BTL OU SCH (21:47)
[2020-06-18] MEDS: SERTRALINE HCL 50 MG TAB PO SCH (21:48)
[2020-06-18] MEDS: ALLOPURINOL 300 MG TAB PO SCH (21:48)
[2020-06-19] VITALS (9 sets, daily range): BP systolic 92–128; BP diastolic 58–88
[2020-06-19] MEDS: CEFEPIME 1GM/NS 0.9% 50 ML 50 ML IV SCH ×2 (03:39→16:02)
[2020-06-19] MEDS: FUROSEMIDE 40 MG TAB PO SCH ×2 (05:22→18:00)
[2020-06-19] MEDS: LEVOTHYROXINE SODIUM 100 MCG TAB PO SCH (05:22)
--- NOTE | 2020-06-19 06:45 | NUR ---
Patient endorsed to next shift fo continuity of care.
[2020-06-19 07:00] LABS: BASOPHILS % 0.4 % (0.0-1.0); EOSINOPHILS # (AUTO) 0.1 (0.0-0.4); EOSINOPHILS % 2.1 % (0.0-6.0); HEMATOCRIT 29.8 % (38.2-49.6); LYMPHOCYTES # (AUTO) 0.9 (1.0-3.2); LYMPHOCYTES % 16.8 % (18.0-39.1); MEAN CORPUSCULAR HEMOGLOBIN 29.1 pg (28-32); MEAN CORPUSCULAR HGB CONC 30.2 g/dL (31-35); MEAN CORPUSCULAR VOLUME 96.4 fL (81-99); MONOCYTES # (AUTO) 0.5 (0.2-0.8); MONOCYTES % 9.9 % (4.4-11.3); NEUTROPHILS # (AUTO) 3.5 (2.1-6.9); PLATELET COUNT 149 x10e3/uL (140-360); RED BLOOD COUNT 3.09 x10e6/uL (4.3-5.7); RED CELL DISTRIBUTION WIDTH 17.5 % (11.7-14.4)
[2020-06-19] MEDS: INSULIN LISPRO 100 UNIT/1 ML 3ML VIAL SQ SCH ×4 (07:30→21:00)
[2020-06-19 07:44] LABS: ALBUMIN 2.8 g/dL (3.5-5.0); ALBUMIN/GLOBULIN RATIO 0.8 (0.8-2.0); ANION GAP 18.6 mmol/L (8-16); CALCIUM 9.1 mg/dL (8.4-10.2); CREATININE, SERUM 2.53 mg/dL (0.72-1.25); POTASSIUM 3.6 mmol/L (3.5-5.1)
[2020-06-19] MEDS: BUDESONIDE 0.5MG/2 ML NEB NEB SCH ×2 (08:00→19:30)
[2020-06-19] MEDS: ALBUTEROL SULF 0.083% NEB SOLN 3 ML NEB NEB SCH ×2 (08:11→19:30)
--- NOTE | 2020-06-19 08:39 | Diagnostic Imaging Report ---
TECHNIQUE: Frontal view of the chest. INDICATION: ^CHF ^[id number] ^[id number] COMPARISON: 06/12/2020 DISCUSSION: Limited evaluation due to portable technique. Lines and hardware: Overlying EKG leads are noted. Heart and mediastinum: Stable. Lungs and pleura: Stable linear atelectasis/scarring at the left lung base. Negative for new suspicious opacity. Negative for effusion or pneumothorax. Soft tissues and bones: No acute abnormality. Stable left posterior mid rib fractures. IMPRESSION: Stable exam compared to 06/12/2020. Signed by: Tobias Bangura MD on 06/19/2020 8:36 AM
[2020-06-19] MEDS: ALBUTEROL SULFATE HFA 8GM INHALATION AEROSOL INH SCH (09:00)
[2020-06-19] MEDS: TAMSULOSIN HCL 0.4 MG CAP PO SCH ×2 (09:58→16:02)
[2020-06-19] MEDS: ASPIRIN 81 MG CHEW TAB PO SCH (09:58)
[2020-06-19] MEDS: LIOTHYRONINE SODIUM 5 MCG TAB PO SCH (09:58)
[2020-06-19] MEDS: FOLIC ACID 1 MG TAB PO SCH ×2 (09:58→16:02)
[2020-06-19] MEDS: BISACODYL 5 MG TAB EC PO SCH (09:58)
[2020-06-19] MEDS: RIVAROXABAN 15 MG TABLET PO SCH (09:59)
[2020-06-19] MEDS: CLOPIDOGREL BISULFATE 75 MG TAB PO SCH (09:59)
[2020-06-19] MEDS: GABAPENTIN 300 MG CAP PO SCH ×2 (09:59→16:03)
[2020-06-19] MEDS: MUPIROCIN 2% OINT 22 GM TUBE TOP SCH (09:59)
[2020-06-19] MEDS: ROPINIROLE HCL 0.25 MG TAB PO SCH ×2 (09:59→16:03)
[2020-06-19] MEDS: METOPROLOL TARTRATE 25 MG TAB PO SCH ×2 (09:59→17:43)
[2020-06-19] MEDS: COLLAGENASE 5 GM TUBE TP SCH (09:59)
[2020-06-19] MEDS: PANTOPRAZOLE SOD 40 MG TABEC PO SCH (10:00)
--- NOTE | 2020-06-19 16:09 | Progress Note ---
DATE: 06/19/2020 Cardiology Progress Note SUBJECTIVE: The patient denies chest pain or shortness of breath. OBJECTIVE: VITAL SIGNS: Temperature 97.8 degrees, pulse 103, respiratory rate 20, blood pressure 98/67, and oxygen saturation 100% on 2 L nasal cannula. GENERAL: An elderly, chronically ill-appearing man, seated at side of bed, awake and alert, in no acute distress. LUNGS: Clear to auscultation bilaterally. No wheezes or crackles. CARDIOVASCULAR: Normal rate. Irregularly irregular. Normal S1, S2. ABDOMEN: Soft, nontender. EXTREMITIES: 2+ pitting edema. Compression dressings present. CARDIAC MEDICATIONS: Metoprolol tartrate 25 mg p.o. b.i.d., Plavix 75 mg p.o. daily, Xarelto 15 mg p.o. daily, liothyronine 5 mcg p.o. daily, aspirin 81 mg p.o. daily, furosemide 40 mg p.o. b.i.d., and levothyroxine 100 mcg p.o. daily. LABORATORY DATA: WBC 5.13, hemoglobin 9, hematocrit 29.8, and platelets 149. Sodium 136, potassium 3.6, chloride 94, CO2 of 27, BUN 22, and creatinine 2.53. BNP 339. TELEMETRY: Telemetry was personally reviewed and interpreted, revealing atrial fibrillation. IMPRESSION: 1. Atrial fibrillation. 2. Acute on chronic diastolic heart failure. 3. Fwyku-qh-lhpuccs kidney disease. 4. Peripheral arterial disease with lower extremity arterial Doppler suggestive of hemodynamically significant aortoiliac disease on the left. 5. Debility. 6. Hypertension. 7. Left lower extremity ulcer. RECOMMENDATIONS: Continue current cardiac medications. Monitor the patient closely on telemetry. Heart rate is borderline, however, hypotension limits titration of AV júnior blocking agents. If the patient becomes more tachycardic, can attempt to add intermittent digoxin. However, this is less preferred given his renal disease. The patient is not a candidate for peripheral angiogram at this time given his acute on chronic kidney disease. Monitor creatinine closely. Cautious use of diuretics given his renal disease. Replete electrolytes. Continue supportive care. Continue current cardiac medications. PT as tolerated. Thank you for this consult. We will continue to follow. MD ROB Ceballos/MODL /[id number]
--- NOTE | 2020-06-19 16:26 | NUR ---
DATE OF SERVICE: 06/19/2020 PCP: Dr. Christopher Summers. ATTENDING PHYSICIAN: Dr. Kavon Short CONSULTING PHYSICIANS: 1. Dr. Robert Mendez with Nephrology 2. Dr. Wellington Ross with Pulmonology 3. Dr. Horace Mcguire with Cardiology 4. Dr. Patrick Moy with Endocrinology 5. Dr. Urban Shaw with Podiatry 6. Dr. Peoples with Wound Care REVIEW OF SYSTEMS: A 14-point review of systems was completed; SOB improving. "Weak legs." Last BM was 06/19 x 2. He has problems with balance, participates well with PT. Overall feeling better. PHYSICAL EXAMINATION: VITAL SIGNS: Temperature 97.8, pulse 103, 98/67, respirations 20, SpO2 100%. Labile BPs. I/O: 1120/400 GENERAL: Supine, in no acute distress. LUNGS: Generally clear to auscultation. Diminished in the bases. Oxygen at 2.5 lpm via nasal cannula currently; home dose is 5 L/minute. HEENT: EOMI. NECK: Supple. CARDIOVASCULAR: Irregularly irregular without murmur. ABDOMEN: Bowel sounds positive. Soft, obese. No guarding. EXTREMITIES: 2+ to 3+ leg edema bilaterally. Left lower extremity erythema with warmth noted, consistent with cellulitis. NEUROLOGICAL: GCS 15. Nonfocal. INTEGUMENTARY: He has an open wound on the dorsum aspect of the left foot, which is covered with a Kerlix dressing. He has a full-thickness left elbow wound also with dressing clean/dry/intact. The wound VAC has been removed. He has scattered bilateral arm hematomas. DIAGNOSTIC STUDIES: LABORATORY DATA: Reviewed. 06/19 WBC 5.13, H/H=9/29.8. BUN/Cr/estimated GFR=72/2.53/25. Potassium 3.6 (3.4). 06/15 Cyclic Citrullinated Peptide IgG Ab: 11. 06/14 TSH 2.636 (3.117), Free T4 0.71, PTH 53. 06/14 Vancomycin Trough 11.4 06/13 WBC 12.13 (17.14), hemoglobin 12.8, hematocrit 42.6, and platelets 132. 18 Coronavirus PCR negative. 06/13 HbA1c 5.7% 06/12 Urinalysis showed cloudy urine, pH 5.5, protein 1+, small amount of blood, negative nitrite, moderate amount of leukocyte esterase, rbc's 6 to 10, wbc's greater than 50, few epithelial cells, moderate bacteria. 06/13 Final Urine C/S: MDRO Pseudomonas Aeruginosa; URINE CULTURE Final Organism 1 PSEUDOMONAS AERUGINOSA COLONY COUNT >=100,000 cfu/ml PSE AERUGI M.I.C. RX --------- ---- TRIMETHOPRIM/SULFAMETHOXAZOLE > R* AMPICILLIN/SULBACTAM(UNASYN). >11/06 R* AZTREONAM 8 S CEFTAZIDIME 4 S CEFEPIME (MAXIPIME) 8 S CIPROFLOXACIN (CIPRO) <=1 S ERTAPENEM (INVANZ) 2 R* GENTAMICIN (GARAMYCIN) <=4 S IMIPENEM (PRIMAXIN) <=1 S LEVOFLOXACIN (LEVAQUIN) <=2 S MEROPENEM (MERREM) <=1 S TOBRAMYCIN <=4 S AMIKACIN <=16 S PIPERACILLIN/TAZOBACT (ZOSYN) <=16 S S = SUSCEPTIBLE I = INTERMEDIATE R = RESISTANT Dionisio = Beta-lactamase positive ESBL = Extended spectrum beta-lactamase R* = Predicted resistant interpretation LUISA = mcg/ml (mg/L) IMAGING/OTHER: 06/14 Bilateral LE Arterial Doppler US: +monophasic waveform LLE, Arterial Stenosis 06/13 CXR: left lung atelectasis and left rib fractures at ribs 6, 7, and perhaps 8. 06/13 12-lead EKG: atrial fibrillation with a heart rate of 123. No echocardiogram results noted. ASSESSMENT AND PLAN: 1. Left Leg Cellulitis: Warmth noted LLE. Continue IV Vanc/Cefepime; monitor Vanc random & trough levels. 2. Chronic Venous Hypertension with Open Ulceration Left Foot: Wound Care consult, TEMO Wraps. Offloading. Per Podiatry, Bactroban ointment q AM & Santyl Collagenase q PM to left foot wound. 3. Acute UTI with MDR Pseudomonas Aeruginosa, POA: Continue Vancomycin and Cefepime antibiotics. 4. ALISON on CKD3, s/p Metabolic Contracture Alkalosis: Avoid nephrotoxic agents. Nephrology following. Monitor for improvement. Diamox & Lasix have been discontinued. Strict I/O. BUN/Cr/estimated GFR=72/2.53/25. 5. AECOPD with subacute left rib fractures and Chronic Hypoxic Respiratory Failure with Oxygen Dependence: Continue supplemental oxygen; home dose is 5 L/minute via nasal cannula, per Pulmonology wean O2 if tolerated. Continue neb treatments & inhaled steroids. 6. Chronic Atrial Fibrillation: HR controlled. Cardiology following. Continue BB Metoprolol. Continue AC with Xarelto. Monitor HR. 7. PAD Left Leg: The patient is not a candidate for peripheral angiogram at this time given his acute on chronic kidney disease. Monitor creatinine closely. 8. Uncontrolled HTN with CKD3 & Chronic D CHF: Labile BP. Cardiology following. Monitor BP. 9. Uncontrolled T2DM with Hypoglycemia and CKD3: Endocrinology following. HbA1c 5.7%. Continue renal ADA diet. Hold oral hypoglycemics & Insulin; Fasting Cyclic Citrullinated Peptide IgG Ab=11. FSBG stable. Continue SSI. 10. Chronic D CHF: Monitor fluid balance. No fluid volume overload seen on chest x-ray. Currently not on fluid restriction. Cardiology & Nephrology following, appreciate recs. 11. Acute Hypokalemia: Potassium 3.6 (3.4). Defer to Nephrology. 12. Chronic pain syndrome: Pain control. Resumed home dose of oral Dilaudid. 13. Chronic left elbow wound, s/p wound VAC removal: Wound Care MD following. 14. Ambulatory dysfunction, Debility, s/p Fall at home: PT eval/treat. Maintain fall precautions. Per PT note dated today: Attempted to tx pt in the pm, but pt refusing. States he does not have energy and feels weak. Encouraged pt to participate to prevent weakness, even to perform ther ex, but pt refusing. Will f/u tomorrow. Per PT note dated 06/14: Patient demonstrates weakness, decreased balance/endurance affecting his ability to perform safe functional mobility. Ambulated 140 feet with RW with CGA, functional transfers with RW with CGA. Prophylaxis: Xarelto and Protonix. Discharge Planning: [employer] using [employer] 3 days/week, receiving wound care and had a wound vac on Lt elbow wound. Monitoring progress. Current DC Plan is home with home health, but considering multiple comorbidities & need for IV ABX + PT, he may require Inpatient Rehab, LTACH or SNF. Time spent 45 minutes. Billing code [id number].
--- NOTE | 2020-06-19 19:30 | Progress Note ---
DATE: 06/19/2020 Renal Progress Note SUBJECTIVE: Events over the past 24 hours have been noted. He has no chest pain. No shortness of breath. PHYSICAL EXAMINATION: VITAL SIGNS: Blood pressure 95/60, pulse 93. GENERAL: The patient is in no acute distress. HEENT: No increased JVD. CARDIOVASCULAR: Regular rate and rhythm. LUNGS: Decreased breath sounds at the bases bilaterally. ABDOMEN: The patient is morbidly obese. EXTREMITIES: The patient has trace edema of the legs. LABORATORY RESULTS: Sodium 136, potassium 3.6, chloride 94, bicarb 27, BUN and creatinine 72 and 2.5 respectively. IMPRESSION: 1. Acute kidney injury superimposed on chronic kidney disease. 2. Chronic kidney disease stage 4. 3. Edema. 4. Wound of the leg. 5. Diabetes:.. PLAN: The patient's fluid balance; 1120 in and 400 out. The patient is on Lasix 40 mg p.o. b.i.d. Right now, the patient's BUN and creatinine are slightly going up but I think we will go ahead and continued the Lasix for right now. If the BUN and creatinine go up much more, than we might have to stop it, but if I stop the Lasix then his edema may return. We will follow the patient. Ather MD STEPHANIE Coulter/STEVE /[id number]
--- NOTE | 2020-06-19 19:51 | NUR ---
Received pt in bed alert, bed low and locked, call light and personal item within reach. Pt noted to drop O2 sat <79 with out [address] in place. Sat 96% with 3Lnc noted. Pt verbalize understanding to keep O2nc in place. Will cont to mon. Bedside report completed
[2020-06-19] MEDS: SERTRALINE HCL 50 MG TAB PO SCH (21:00)
[2020-06-19] MEDS: VANCOMYCIN 1GM/NS 250 ML 250 ML IV SCH (21:30)
[2020-06-19] MEDS: ALLOPURINOL 300 MG TAB PO SCH (22:11)
[2020-06-19] MEDS: LATANOPROST(OPTH) 2.5 ML BTL OU SCH (22:16)
[2020-06-20 00:34] VITALS: BP 95/73
[2020-06-20] MEDS: CEFEPIME 1GM/NS 0.9% 50 ML 50 ML IV SCH ×2 (03:00→15:52)
[2020-06-20 05:34] VITALS: BP 94/73
[2020-06-20] MEDS: FUROSEMIDE 40 MG TAB PO SCH ×2 (06:00→09:00)
[2020-06-20] MEDS: LEVOTHYROXINE SODIUM 100 MCG TAB PO SCH (06:10)
[2020-06-20 06:23] LABS: BASOPHILS % 0.4 % (0.0-1.0); EOSINOPHILS # (AUTO) 0.1 (0.0-0.4); EOSINOPHILS % 1.9 % (0.0-6.0); HEMATOCRIT 30.9 % (38.2-49.6); HEMOGLOBIN 9.3 g/dL (14.0-18.0); LYMPHOCYTES # (AUTO) 0.6 (1.0-3.2); LYMPHOCYTES % 12.6 % (18.0-39.1); MEAN CORPUSCULAR HEMOGLOBIN 29.1 pg (28-32); MEAN CORPUSCULAR HGB CONC 30.1 g/dL (31-35); MEAN CORPUSCULAR VOLUME 96.6 fL (81-99); MONOCYTES # (AUTO) 0.4 (0.2-0.8); MONOCYTES % 7.7 % (4.4-11.3); NEUTROPHILS # (AUTO) 3.5 (2.1-6.9); NEUTROPHILS % 75.7 % (38.7-80.0); PLATELET COUNT 153 x10e3/uL (140-360); RED CELL DISTRIBUTION WIDTH 17.6 % (11.7-14.4)
[2020-06-20 06:48] LABS: ANION GAP 18.4 mmol/L (8-16); CALCIUM 9.4 mg/dL (8.4-10.2); CREATININE, SERUM 2.43 mg/dL (0.72-1.25); POTASSIUM 3.4 mmol/L (3.5-5.1)
--- NOTE | 2020-06-20 06:58 | NUR ---
BEDSIDE SBAR REPORT RECEIVED FROM DARYN VINCENT, PM SHIFT. PT FOUND RESTING IN BED EASILY AROUSED IN NO ACUTE DISTRESS. PT IS ABLE TO MAKE NEEDS KNOWN AND WAS EDUCATED ON FALL RISK PRECAUTIONS. PT VERBALIZED UNDERSTANDING. CALL LIGHT AND BELONGINGS PLACED NEARBY. WILL CONTINUE TO MONITOR
[2020-06-20] MEDS: INSULIN LISPRO 100 UNIT/1 ML 3ML VIAL SQ SCH ×3 (07:30→15:52)
[2020-06-20] MEDS: ALBUTEROL SULF 0.083% NEB SOLN 3 ML NEB NEB SCH (07:30)
[2020-06-20] MEDS: BUDESONIDE 0.5MG/2 ML NEB NEB SCH (07:30)
[2020-06-20] MEDS: PANTOPRAZOLE SOD 40 MG TABEC PO SCH (07:30)
[2020-06-20 07:54] VITALS: BP 99/64
[2020-06-20] MEDS: ALBUTEROL SULFATE HFA 8GM INHALATION AEROSOL INH SCH (09:00)
[2020-06-20] MEDS: LIOTHYRONINE SODIUM 5 MCG TAB PO SCH (09:00)
[2020-06-20] MEDS: COLLAGENASE 5 GM TUBE TP SCH (09:00)
[2020-06-20] MEDS: CLOPIDOGREL BISULFATE 75 MG TAB PO SCH (09:00)
[2020-06-20] MEDS: METOPROLOL TARTRATE 25 MG TAB PO SCH (09:00)
[2020-06-20] MEDS: BISACODYL 5 MG TAB EC PO SCH (09:00)
[2020-06-20] MEDS: FOLIC ACID 1 MG TAB PO SCH (09:00)
[2020-06-20] MEDS: GABAPENTIN 300 MG CAP PO SCH (09:00)
[2020-06-20] MEDS: ROPINIROLE HCL 0.25 MG TAB PO SCH (09:00)
[2020-06-20] MEDS: TAMSULOSIN HCL 0.4 MG CAP PO SCH (09:00)
[2020-06-20] MEDS: ASPIRIN 81 MG CHEW TAB PO SCH (09:00)
[2020-06-20] MEDS: MUPIROCIN 2% OINT 22 GM TUBE TOP SCH (09:00)
[2020-06-20] MEDS: RIVAROXABAN 15 MG TABLET PO SCH (09:00)
[2020-06-20 11:38] VITALS: BP 98/72
[2020-06-20] MEDS ORDERED: CIPRO500 MG PO (12:16)
[2020-06-20] MEDS ORDERED: BACTRIM DS TAB1 EACH PO (12:16)
[2020-06-20] MEDS ORDERED: FUROSEMIDE40 MG PO (12:20)
[2020-06-20] MEDS ORDERED: Collagenase TP (12:20)
[2020-06-20] MEDS ORDERED: POTASSIUM CHLORIDE 20 MEQ TAB CR PO ONE (12:30)
--- NOTE | 2020-06-20 12:32 | NUR ---
ORDER RECEIVED FOR HOME HEALTH FOR SN FOR WOUND CARE AND PT. CALL TO THE PT'S RM AND CELL PHONE. NO ANSWER. CALL TO PT'S , GERARDO @ [phone]. STATES PT IS ALREADY ON SERVICE W [facility], BUT WAS NOT HOME TO GIVE THE #. STATES SHE WILL CALL CM BACK W THE # TO THE HH AGENCY.
--- NOTE | 2020-06-20 12:52 | NUR ---
PT'S RETURNED CALL. STATES HER IS ON SERVICE W [facility] @ OFF: [phone] / FAX: [phone]. CALL TO [facility]. SPOKE Smita CROCKER. INFORMED PT TO DC HOME TODAY, BUT NO DC ORDER YET. REFERRAL WAS FAXED TO [facility].
[2020-06-20] MEDS ORDERED: AUGMENTIN 500-1 EACH PO (13:20)
--- NOTE | 2020-06-20 15:40 | Progress Note ---
DATE: 06/20/2020 Cardiology Progress Note SUBJECTIVE: The patient denies chest pain or shortness of breath. OBJECTIVE: VITAL SIGNS: Temperature 97.6 degrees, pulse 90, respiratory rate 20, blood pressure 98/72, and oxygen saturation 100%. GENERAL: An elderly, chronically ill-appearing man, seated at the side of bed, awake and alert, in no acute distress. LUNGS: Clear to auscultation bilaterally. No wheezes or crackles. CARDIOVASCULAR: Normal rate. Irregularly irregular. No murmur. Normal S1, S2. ABDOMEN: Soft, nontender. EXTREMITIES: 2+ pitting edema. Compression dressing is present. CARDIAC MEDICATIONS: Levothyroxine 100 mcg p.o. daily, metoprolol tartrate 25 mg p.o. b.i.d., furosemide 40 mg p.o. b.i.d., liothyronine 5 mcg p.o. daily, Plavix 75 mg p.o. daily, Xarelto 15 mg p.o. daily, and aspirin 81 mg p.o. daily. LABORATORY DATA: WBC 4.68, hemoglobin 9.3, hematocrit 30.9, and platelets 153. Sodium 136, potassium 3.4, chloride 93, CO2 of 28, BUN 70, and creatinine 2.43. TELEMETRY: Telemetry was personally reviewed and interpreted revealing atrial fibrillation. IMPRESSION: 1. Atrial fibrillation. 2. Acute on chronic diastolic heart failure. 3. Acute on chronic kidney disease. 4. Peripheral arterial disease with lower extremity arterial Doppler suggestive of hemodynamically significant aortoiliac disease on the left. 5. Debility. 6. Hypertension. 7. Left lower extremity ulcer. RECOMMENDATIONS: Continue current cardiac medications. Monitor the patient closely on telemetry. Heart rate is acceptable. The patient is not a candidate for peripheral angiogram at this time given his acute on chronic kidney disease. Monitor creatinine closely. Cautious use of diuretics given his renal disease. Replete electrolytes. Continue supportive care. PT as tolerated. Thank you for this consult. We will continue to follow. Zenaida Randolph MD ABS/MODL /[id number]
[2020-06-20 15:45] VITALS: BP 96/53
--- NOTE | 2020-06-20 16:15 | NUR ---
PT DISCHARGED HOME VIA PRIVATE VEHICLE. BROUGHT HOME OXYGEN FOR PT. PERIPHERAL IV WAS DISCONTINUED; CATHETER INTACT WITHOUT RESISTANCE. PRESSURE DRESSING APPLIED. PATIENT RECEIVED DISCHARGE INSTRUCTIONS, WRITTEN PRESCRIPTIONS AND EDUCATION LEAFLETS. PT VERBALIZED UNDERSTANDING.
--- NOTE | 2020-06-20 16:20 | Progress Note ---
DATE: 06/20/2020 Renal Progress Note SUBJECTIVE: Events over the past 24 hours have been noted. The patient has no chest pain. No shortness of breath. PHYSICAL EXAMINATION: VITAL SIGNS: Blood pressure 95/72, pulse 90, respirations 20. GENERAL: The patient is no acute distress. He is significantly obese. HEENT: No increased JVD. CARDIOVASCULAR: Regular rate and rhythm. LUNGS: Decreased breath sounds. ABDOMEN: Decreased bowel sounds. The patient is obese. EXTREMITIES: The patient's legs are wrapped in Sanjay wrap and the swelling has gone down. LABORATORY RESULTS: Sodium 136, potassium 3.4, chloride 93, bicarbonate 28, BUN and creatinine 70 and 3.43 respectively. IMPRESSION: 1. Acute kidney injury superimposed on chronic kidney disease. 2. Chronic kidney disease, stage 4. 3. Edema. 4. Wound of the leg. 5. Diabetes. PLAN: The patient is doing well with the present dose of Lasix, we will continue this. He is a little bit hypokalemic. I will supplement diet with 40 mEq of potassium p.o. His renal function is stable. Ather MD STEPHANIE Coulter/ADRIANL /[id number]
[2020-06-21] MEDS ORDERED: POTASSIUM CHLORIDE 20 MEQ TAB CR PO SCH (09:00)
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
== END 2020-06-20 16:35 | disposition home health service (06) | DRG 871 ==
LOC: ER 18:59 → ERHOLD 21:57 → MED/SURG3 06-13 02:58
PROVIDERS: ADMIT Internal Medicine; ATTEND Internal Medicine
DX: A41.9 Sepsis, unspecified organism (principal); R65.21 Severe sepsis with septic shock; I50.33 Acute on chronic diastolic (congestive) heart failure; S22.42XA Multiple fractures of ribs, left side, initial encounter for closed fracture; L03.116 Cellulitis of left lower limb; N17.9 Acute kidney failure, unspecified; I13.0 Hypertensive heart and chronic kidney disease with heart failure and stage 1 through stage 4 chronic kidney disease, or unspecified chronic kidney disease; I50.32 Chronic diastolic (congestive) heart failure; E87.4 Mixed disorder of acid-base balance; J44.1 Chronic obstructive pulmonary disease with (acute) exacerbation; N39.0 Urinary tract infection, site not specified; I48.20 Chronic atrial fibrillation, unspecified; L98.498 Non-pressure chronic ulcer of skin of other sites with other specified severity; N18.3 Chronic kidney disease, stage 3 (moderate); E11.22 Type 2 diabetes mellitus with diabetic chronic kidney disease; E03.9 Hypothyroidism, unspecified; F41.9 Anxiety disorder, unspecified; N40.0 Benign prostatic hyperplasia without lower urinary tract symptoms; M10.9 Gout, unspecified; Z87.891 Personal history of nicotine dependence; W06.XXXA Fall from bed, initial encounter; Z91.81 History of falling; Y93.89 Activity, other specified; Y92.013 Bedroom of single-family (private) house as the place of occurrence of the external cause; I25.10 Atherosclerotic heart disease of native coronary artery without angina pectoris; E11.43 Type 2 diabetes mellitus with diabetic autonomic (poly)neuropathy; G89.4 Chronic pain syndrome; Z87.440 Personal history of urinary (tract) infections; Z95.5 Presence of coronary angioplasty implant and graft; Z82.49 Family history of ischemic heart disease and other diseases of the circulatory system; E11.649 Type 2 diabetes mellitus with hypoglycemia without coma; Z88.8 Allergy status to other drugs, medicaments and biological substances; L97.522 Non-pressure chronic ulcer of other part of left foot with fat layer exposed; Z99.81 Dependence on supplemental oxygen; M71.122 Other infective bursitis, left elbow; B96.5 Pseudomonas (aeruginosa) (mallei) (pseudomallei) as the cause of diseases classified elsewhere; Z11.59 Encounter for screening for other viral diseases; Z79.82 Long term (current) use of aspirin
CPT/HCPCS: 36415; 36600; 71045; 80048; 80053; 80202; 81001; 82550; 82553; 82805; 82948; 83036; 83605; 83735; 83880; 83970; 84100; 84439; 84443; 84481; 84484; 85025; 85610; 85730; 86200; 86376; 87040; 87086; 87186; 93005; 93925; 94640; 97139; 99285; J0692; J1817; J1940; J2543; J3370; J7030; J7050; J7799; U0002

== ENCOUNTER 2020-06-21 08:40 | Emergency (ER) | payer MEDICARE, BC ==
[~2020-06-21] VITALS: Ht 175.3 cm; Wt 95.3 kg
[~2020-06-21 08:40] MED LIST changes: +AUGMENTIN 500-1 EACH PO; +CIPRO500 MG PO; +CYCLO TOP; +Collagenase TP; +KETO TOP; +LIDO TOP; +LIDOCAINE PAIN1 EACH TOP
--- OUTSIDE RECORDS SUMMARY | 2020-06-21 08:47 | XMS REPORT | Continuity of Care Document ---
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 [facility] Acetaminophen Notes: Do not ex ceed 4 gm/day. (Same as: Tylenol) No Longer Active 04/07/2020 [facility] Acetaminophen 325 MG / Hydrocodone Huber trate 10 MG Oral Tablet Notes: Do not exceed 4gm/day of acetamin ophen. (Same as: [place] 325/10) No Longer Active 04/07/2020 [facility] Hydromorphone Notes: Same as D ilaudid Inactive 04/07/2020 [facility] Ondansetron Notes: (Same as: Rosanna santamaria) MEDICATION WASTE Product Size: 4 mg Product Wasted: ___ mg No Longer Active 04/07/2020 [facility] Saline Flush 0.9% Notes: Same as: BD Posiflush Sterile No Longer Active 04/07/2020 [facility] Methadone Notes: (Same as: Dol ophine) No Longer Active 04/07/2020 [facility] Lactated Ringers Injection IV (ANES) 1000 mL Route: IV, Total Volume: 1,000, Start date: 04/07/20 7:34:00 CDT, Stop date: 04/07/20 8:34:00 CDT Inactive 04/07/2020 [facility] 24 HR mirabegron 50 MG Extended Release Tablet [Myrbetriq] 50 mg = 1 tab, PO, Daily, # 90 tab, 0 Re fill(s), [id number] Active 04/04/2020 [facility] 10 mg, PO, QPM, 0 Refi ll(s) No Longer Active 04/03/2020 [facility] gabapentin 300 MG Oral Capsule 300 mg [...] PM, 0 Refill(s) No Longer Active 04/03/2020 [facility] tamsulosin 0.4 mg oral capsule 0.4 mg [...] TAB, Before Breakfast, Start date: 11/11/19 10:00:00 [employer], Duration: 30 day, Stop date: 12/11/19 7:30:00 [employer], 0 Inactive 11/11/2019 [facility] 200 ACTUAT Albuterol 0.09 MG/ACTUAT Mete red Dose Inhaler [ProAir HFA] 180 microgram = 2 puff, INHALATION, Domingo y, 0 Refill(s) Active 11/11/2019 [facility] Oxygen Oxygen, 1 btl, MISC, Be dtime, Refill(s) 0 Active 11/11/2019 [facility] ProAir HFA ProAir HFA, 1 - 2 p uffs, PO, Daily, Refill(s) 0 Active 11/11/2019 [facility] Acetaminophen 300 MG / Codeine Phosphate 30 MG Oral Tablet 1 tab, PO, Q6H, PRN Pain Score 7-10, # 3 0 tab, 0 Refill(s) Active 11/11/2019 [facility] 200 ACTUAT Albuterol 0.09 MG/ACTUAT Mete red Dose Inhaler [ProAir HFA] 180 microgram, 2 puff, Route: INHALATION , Drug Form: AERO/A, Dosing Weight 94.091, kg, Daily, Start date: 11/11/19 9:00:00 [employer], Duration: 30 day, Stop date: 12/10/19 9:00:00 [employer] Inactive 11/11/2019 [facility] ProAir HFA ProAir HFA, 1 - 2 p uffs, Route: PO, Daily, 11/11/19 9:00:00 [employer], Duration: 30 day, Stop date: 12/10/19 9:00:00 [employer] Inactive 11/11/2019 [facility] Allopurinol Notes: (Same as: Z yloprim) Inactive 11/11/2019 [facility] Aspirin 81 MG Enteric Coated Tablet Notes: Do not crush or chew. (Same As: Ecotrin) Inactive 11/11/2019 [facility] Bumetanide Notes: (Same As: [place]) Inactive 11/11/2019 [facility] Vitamin D3 1000 intl units oral tablet Notes: Same as : Vitamin D3 Inactive 11/11/2019 [facility] Clobetasol Propionate 0.0005 MG/MG Topical Ointment Notes: (clobetasol propionate 0.05% 15 gm top OIN) (Same As: Temovate) Inactive 11/11/2019 [facility] clopidogrel Notes: (Same As: P lavix) Inactive 11/11/2019 [facility] Colchicine 0.6 mg, 1 tab, Rout e: PO, Drug form: TAB, Daily, Dosing Weight 94.091, kg, Start date: 11/11/19 9:00:00 [employer], Duration: 30 day, Stop date: 12/10/19 9:00:00 [employer], 0 Inactive 11/11/2019 [facility] ferrous sulfate Notes: Give wi th food. "Do Not Crush" Inactive 11/11/2019 [facility] Metolazone 5 MG Oral Tablet No bharat: (Same as: Zaroxolyn) Inactive 11/11/2019 [facility] 24 HR mirabegron 50 MG Extended Release Tablet [Myrbetriq] 50 mg, 1 tab, Route: PO, Drug form: ERTA B, Daily, Dosing Weight 94.091, kg, Start date: 11/11/19 9:00:00 [employer], Duration: 30 day, Stop date: 12/10/19 9:00:00 [employer] Inactive 11/11/2019 [facility] Prednisone Notes: (Same as: Pr edniSONE) Take with food. Inactive 11/11/2019 [facility] Xarelto Notes: (Same as: Xarel to) Administer with food Inactive 11/11/2019 [facility] Sertraline Notes: (Same as: Z oloft) Inactive 11/11/2019 [facility] Budesonide 0.25 MG/ML Inhalant Solution Notes: (Same As: Pulmicort) Inactive 11/11/2019 [facility] glimepiride 1 mg, 1 tab, Route : PO, Drug form: TAB, Breakfast, Dosing Weight 94.091, kg, Start date: 11/11/19 8:00:00 [employer], Duration: 30 day, Stop date: 12/10/19 8:00:00 [employer] Inactive 11/11/2019 [facility] Thyroxine 100 microgram, 1 tab , Route: PO, Drug form: TAB, Q630AM, Dosing Weight 94.091, kg, Start date: 11/11/19 6:30:00 [employer], Duration: 30 day, Stop date: 12/10/19 6:30:00 [employer], 0 Inactive 11/11/2019 [facility] Triiodothyronine Notes: (Same as: Cytomel) Inactive 11/11/2019 [facility] Dilaudid Notes: Same as Dilaud id Inactive 11/11/2019 [facility] Fentanyl 25 microgram, Route: IV, ONCE, Dosing Weight 94.091, kg, Start date: 11/11/19 4:15:00 [employer], Stop date: 11/11/19 4:15:00 [employer] Inactive 11/11/2019 [facility] Saline Flush 0.9% Notes: (Same as: BD Posiflush) No Longer Active 11/11/2019 [facility] Oxygen Oxygen, 1 btl, Route: M ISC, Bedtime, 11/10/19 21:00:00 [employer], Duration: 30 day, Stop date: 12/09/19 21:00:00 [employer] No Longer Active 11/11/2019 [facility] Folic Acid 0.4 mg, 1 tab, Rout e: PO, Drug form: TAB, BID, Dosing Weight 94.091, kg, Start date: 11/10/19 21:00:00 [employer], Duration: 30 day, Stop date: 12/10/19 9:00:00 [employer], 0 No Longer Active 11/11/2019 [facility] Pramipexole 0.25 mg, 2 tab, Ro demetrio: PO, Drug form: TAB, Bedtime, Dosing Weight 94.091, kg, Start date: 11/10/19 21:00:00 [employer], Duration: 30 day, Stop date: 12/09/19 21:00:00 [employer] No Longer Active 11/11/2019 [facility] ropinirole 0.5 mg, Route: PO, Drug form: TAB, Bedtime, Dosing Weight 94.091, kg, Start date: 11/10/19 21:00:00 [employer], Duration: 30 day, Stop date: 12/09/19 21:00:00 [employer] No Longer Active 11/11/2019 [facility] Albuterol 0.83 MG/ML Inhalant Solution Notes: SEE RT DOCUMENTATION (Same as: Proventil) No Longer Active 11/11/2019 [facility] latanoprost Notes: Keep refrig erated. (Same as:Xalatan) Opened bottle may be stored at room temperature for 6 weeks No Longer Active 11/10/2019 [facility] 24 HR Metoprolol Tartrate 25 MG Extended Release Tablet [Toprol] Notes: (Same as: Toprol XL) Do Not Crush 12.5 mg = 1/2 x 25 mg TAB No Longer Active 11/10/2019 [facility] Potassium Chloride Notes: (Manfred e as: K-Dur 20) "Do Not Crush" Give with food and full glass of water For patients unable to swallow tablet, dissolve in one half glass of water. Allow about 2 minutes for the tab lets to disintegrate. Stir before giving to prepare slurry and administer. Please exclude Patients with feeding tube less than 14 Divehi (Dobhoff, J-tube etc) and pediatric and patients. No Longer Active 11/10/2019 [facility] Alprazolam 0.5 MG Oral Tablet Notes: With food or milk (Same as: Xanax) No Longer Active 11/10/2019 [facility] Dulcolax Laxative Notes: (Same As: Dulcolax, Bisco-Lax) No Longer Active 11/10/2019 [facility] acetaminophen-codeine #3 Notes : Do not exceed 4gm/day of acetaminophen. (Same as: Tylenol with Codeine # 3) No Longer Active 11/10/2019 [facility] Saline Flush 0.9% Notes: (Same as: BD Posiflush) No Longer Active 11/10/2019 [facility] protamine (ANES) Route: IV, Dr ug form: INJ, ONCE, Stop date: 11/10/19 15:12:00 [employer] Inactive 11/10/2019 [facility] glycopyrrolate (ANES) Route: I V, Drug form: INJ, ONCE, Stop date: 11/10/19 15:12:00 [employer] Inactive 11/10/2019 [facility] neostigmine (ANES) Route: IV, Drug form: INJ, ONCE, Stop date: 11/10/19 15:12:00 [employer] Inactive 11/10/2019 [facility] norepinephrine (ANES) Route: I V, Drug form: INJ, ONCE, Stop date: 11/10/19 14:39:00 [employer] Inactive 11/10/2019 [facility] heparin (ANES) Route: IV, Drug form: INJ, ONCE, Stop date: 11/10/19 14:39:00 [employer] Inactive 11/10/2019 [facility] propofol (ANES) Route: IV, Tristan g form: INJ, ONCE, Stop date: 11/10/19 14:34:00 [employer] Inactive 11/10/2019 [facility] ceFAZolin (ANES) Route: IV, ug form: INJ, ONCE, Stop date: 11/10/19 14:34:00 [employer] Inactive 11/10/2019 [facility] lidocaine (ANES) Route: IV, Dr ug form: INJ, ONCE, Stop date: 11/10/19 14:18:00 [employer] Inactive 11/10/2019 [facility] rocuronium (ANES) Route: IV, D rug form: INJ, ONCE, Stop date: 11/10/19 14:18:00 [employer] Inactive 11/10/2019 [facility] fentaNYL (ANES) Route: IV, Tristan g form: INJ, ONCE, Stop date: 11/10/19 14:18:00 [employer] Inactive 11/10/2019 [facility] Fentanyl Notes: (Same as: Subl imaze) Preservative free. No Longer Active 11/10/2019 [facility] Hydromorphone Notes: Same as D ilaudid No Longer Active 11/10/2019 [facility] Flumazenil Notes: (Same as: Ro mazicon) No Longer Active 11/10/2019 [facility] Naloxone Notes: Same as Narcan No Longer Active 11/10/2019 [facility] Diphenhydramine Notes: (Same a s: Benadryl) No Longer Active 11/10/2019 [facility] Ondansetron Notes: (Same as: Rosanna santamaria) MEDICATION WASTE Product Size: 4 mg Product Wasted: ___ mg No Longer Active 11/10/2019 [facility] norepinephrine (ANES) 10 microgram Route: IV, Drug form: INJ, Start date: 11/10/19 13:51:00 [employer], Stop date: 11/10/19 14:51:00 [employer] Inactive 11/10/2019 [facility] Sodium Chloride 0.9% IV (ANES) 1000 mL Route: IV, Total Volume: 1,000, Start date: 11/10/19 13:29:00 [employer], Stop date: 11/10/19 14:29:00 [employer] Inactive 11/10/2019 [facility] methenamine hippurate 1 g oral tablet 1 gm = 1 tab, PO, BID, 0 Refill(s) Active 11/10/2019 [facility] Metolazone 5 MG Oral Tablet 5 mg = 1 tab, PO, Daily, 0 Refill(s) Active 11/10/2019 [facility] predniSONE 10 mg oral tablet 1 0 mg = 1 tab, PO, Daily, 3 Refill(s) Active 11/10/2019 [facility] ferrous sulfate 325 mg oral enteric coated tablet 325 mg = 1 tab, PO, Daily, 0 Refill(s) Active 11/10/2019 [facility] glimepiride 1 mg oral tablet 1 mg = 1 tab, PO, Breakfast, 0 Refill(s) Active 11/10/2019 [facility] Albuterol 0.83 MG/ML Inhalant Solution 2.5 mg = 3 mL, NEB, BID, am/pm, 0 Refill(s) Active 11/10/2019 [facility] Sodium Chloride 0.9% IV 1,000 mL 1,000 ml, Rate: 50 ml/hr, Infuse over: 20 hr, Route: IV, Dosing Weight 94.091 kg, Total Volume: 1,000, Start date: 11/10/19 10:52:00 [employer], Duration: 30 day, Stop date: 12/10/19 10:51:00 [employer], 2.16, m2, 0 No Longer Active 11/10/2019 [...] Drug form: OINT, Start date: 10/16/19 18:58:00 [employer], Stop date: 10/16/19 18:58:00 [employer], 0 Inactive 10/17/2019 [facility] 24 HR mirabegron 50 MG Extended Release Tablet [Myrbetriq] 50 mg = 1 tab, PO, Daily, # 90 tab, 1 Re fill(s), Pharmacy: [facility] #[id number] Active 06/02/2019 [facility] Levofloxacin 500 MG Oral Tablet [Levaquin] 500 mg = 1 tab, PO, Q24H, X 7 day, # 7 tab, 0 Refill(s), Pharmacy: [facility] [id number] Active 05/18/2019 [facility] allopurinol 300 mg oral tablet 300 mg = 1 tab, PO, Daily, # 90 tab, 1 Refill(s) Active 04/19/2019 [facility] methenamine hippurate 1 gm, PO , Daily, 0 Refill(s) Active 04/19/2019 [facility] Dulcolax Laxative = 1 supp, ID , Daily, PRN constipation, # 5 supp, 0 Refill(s) Active 04/19/2019 [facility] Colchicine 0.6 mg, PO, Daily, 0 Refill(s) Active 04/19/2019 [facility] Fosfomycin 33.3 MG/ML Oral Suspension [Monurol] = 1 Pack, PO, ONCE, # 3 gm, 0 Refill(s), Pharmacy: [facility] [id number] Active 12/03/2018 [facility] Hydrochlorothiazide 50 MG / Spironolacto ne 50 MG Oral Tablet [Aldactazide] 1 tab, PO, PRN, 0 Refill(s) Active 11/30/2018 [facility] baclofen 10 mg oral tablet 10 mg = 1 tab, PO, TID, # 90 tab, 0 Refill(s) Active 11/30/2018 [facility] Budesonide 0.25 MG/ML Inhalant Solution 0.5 mg = 2 mL, NEB, Daily, # 60 ea, 11 Refill(s) Active 11/30/2018 [facility] carisoprodol 350 mg oral tablet 350 mg = 1 tab, PO, TID, PRN Muscle Spasms, # 42 tab, 0 Refill(s) Active 11/30/2018 [facility] Clobetasol Propionate 0.0005 MG/MG Topical Ointment TOP, Daily, 0 Refill(s) Active 11/30/2018 [facility] clopidogrel 75 mg oral tablet 75 mg [...] # 30 tab, 0 Refill(s) Active 11/30/2018 [facility] hydromorphone 8 mg oral tablet 8 mg = 1 tab, PO, BID, PRN Pain, 0 Refill(s) Active 11/30/2018 [facility] Sodium Chloride 1.2 MEQ/ML Inhalant Solu tion [Hyper-Lamine] PRN, 0 Refill(s) Active 11/30/2018 [facility] Oxygen 1 btl, MISC, Bedtime, # 1 btl, 0 Refill(s) Active 11/30/2018 [facility] pantoprazole 40 mg oral enteric coated tablet 40 mg = 1 tab, PO, Daily, # 30 tab, 0 Refill(s) Active 11/30/2018 [facility] Potassium Chloride 20 mEq, BID , 0 Refill(s) Active 11/30/2018 [facility] pramipexole 0.125 mg oral tablet 0.125 mg = 1 tab, PO, Bedtime, # 30 tab, 1 Refill(s) Active 11/30/2018 [facility] 200 ACTUAT Albuterol 0.09 MG/ACTUAT Mete red Dose Inhaler [ProAir HFA] 2 puff, INHALATION, Daily, 0 Refill(s) Active 11/30/2018 [facility] non-formulary RAPATHA INJECTIO N 140MG Q2WEEK, Refill(s) 0 Active 11/30/2018 [facility] rOPINIRole 0.5 mg oral tablet 0.5 mg = 1 tab, PO, Bedtime, # 30 tab, 1 Refill(s) Active 11/30/2018 [facility] sertraline 50 mg oral tablet 5 0 mg = 1 tab, PO, Daily, # 30 tab, 0 Refill(s) Active 11/30/2018 [facility] rivaroxaban 15 MG Oral Tablet [Xarelto] 15 mg = 1 tab, PO, Daily, # 90 tab, 3 Refill(s) Active 11/30/2018 [facility] Aspirin 81 MG Enteric Coated Tablet 81 mg = 1 tab, PO, Daily, # 90 tab, 3 Refill(s) Active 11/30/2018 [facility] Folic Acid 400 MCG, BID, 0 Ref ill(s) Active 11/30/2018 [facility] Mucus Relief DM PO, BID, 0 Ref ill(s) Active 11/30/2018 [facility] Vitamin B12 Methylcobalamin SL , qWeek, 0 Refill(s) Active 11/30/2018 [facility] Vitamin D3 2000 intl units oral capsule 2,000 IntlUnit = 1 cap, PO, Daily, # 100 cap, 3 Refill(s) Active 11/30/2018 [facility] 24 HR mirabegron 50 MG Extended Release Tablet [Myrbetriq] See Instructions, TAKE 1 TABLET BY MOUTH EVERY DAY, # 90 tab, 0 Refill(s), [id number], please have patient call for appt prior to next refill Active 11/05/2018 [facility] Allergies, Adverse Reactions, Alerts Substance Category Reaction Severity Reaction type Status Date Reported Comments Source No Known Medication Allergies Assertion Drug aller gy [facility] Lyrica<sup>1</sup> Assertion Drug allergy Active [facility] Immunizations Immunization Date Given Site Status Last Updated Comments Source diphtheria/pertussis, acel/tetanus adult 10/17/2019 Right deltoid completed [facility] Results Order Name Results Value Reference Range Date Interpretation Comments Source ELECTROLYTES Potassium Lvl 3.2 3.5 - 5.1 04/20/2020 [facility] CHEM PANEL Magnesium Lvl 2.0 1.8 - 2.4 04/20/2020 [facility] CHEM PANEL Glucose Lvl 103 70 - 99 04/20/2020 [facility] CHEM PANEL BUN 39 7 - 22 04/20/2020 [facility] CHEM PANEL Creatinine Lvl 1.56 0.50 - 1.40 04/20/2020 [facility] CHEM PANEL Sodium Lvl 136 135 - 145 04/20/2020 [facility] CHEM PANEL Potassium Lvl 2.8 3.5 - 5.1 04/20/2020 Result Comment: Critical Result(s) harrison d to Aiden Cerda at 04/20/2020 07:23 by ANNABELLE. Read back OK. [facility] CHEM PANEL Chloride Lvl 97 95 - 109 04/20/2020 [facility] CHEM PANEL CO2 33 24 - 32 04/20/2020 [facility] CHEM PANEL AGAP 8.8 10.0 - 20.0 04/20/2020 [facility] CHEM PANEL Calcium Lvl 8.3 8.5 - 10.5 04/20/2020 [facility] CHEM PANEL eGFR 43 04/20/2020 Result [...] should be multiplied by the estimated BMI. [facility] RBC Morph Kay l (04/20/20 6:15 AM) Normal 04/20/2020 [facility] Plt Morph Kay l (04/20/20 6:15 AM) Normal 04/20/2020 [facility] Segs 73.4 45.0 - 75.0 04/20/2020 [facility] Lymphocytes 16.9 20.0 - 40.0 04/20/2020 [facility] Monocytes 7.8 2.0 - 12.0 04/20/2020 [facility] Eosinophils 1.0 0.0 - 4.0 04/20/2020 [facility] Basophils 0.9 0.0 - 1.0 04/20/2020 [facility] Neutrophils # 3.5 1.5 - 8.1 04/20/2020 [facility] Lymphocytes # 0.8 1.0 - 5.5 04/20/2020 [facility] Monocytes # 0.4 0.0 - 0.8 04/20/2020 [facility] Eosinophils # 0.1 0.0 - 0.5 04/20/2020 [facility] WBC 4.8 3.7 - 10.4 04/20/2020 [facility] RBC 4.39 4.70 - 6.10 04/20/2020 [facility] Hgb 12.1 14.0 - 18.0 04/20/2020 [facility] Hct 38.3 42.0 - 54.0 04/20/2020 [facility] MCV 87.2 80.0 - 94.0 04/20/2020 [facility] MCH 27.5 27.0 - 31.0 04/20/2020 [facility] MCHC 31.5 32.0 - 36.0 04/20/2020 [facility] RDW 19.6 11.5 - 14.5 04/20/2020 [facility] Platelet 183 133 - 450 04/20/2020 [facility] HEMATOLOGY MPV 8.0 7.4 - 10.4 04/20/2020 [facility] TOXICOLOGY Vanco Tr 17.2 04/19/2020 [facility] TOXICOLOGY Vanco Tr TND 1330 04/19/2020 [facility] CHEM PANEL Glucose Lvl 83 70 - 99 04/19/2020 [facility] CHEM PANEL BUN 36 7 - 22 04/19/2020 [facility] CHEM PANEL Creatinine Lvl 1.50 0.50 - 1.40 04/19/2020 [facility] CHEM PANEL Sodium Lvl 138 135 - 145 04/19/2020 [facility] CHEM PANEL Potassium Lvl 3.1 3.5 - 5.1 04/19/2020 [facility] CHEM PANEL Chloride Lvl 100 95 - 109 04/19/2020 [facility] CHEM PANEL CO2 35 24 - 32 04/19/2020 [facility] CHEM PANEL Calcium Lvl 9.2 8.5 - 10.5 04/19/2020 [facility] CHEM PANEL AGAP 6.1 10.0 - 20.0 04/19/2020 [facility] CHEM PANEL eGFR 45 04/19/2020 Result [...] should be multiplied by the estimated BMI. [facility] CHEM PANEL Magnesium Lvl 1.6 1.8 - 2.4 04/19/2020 [facility] CHEM PANEL Phosphorus 3.4 2.5 - 4.5 04/19/2020 [facility] HEMATOLOGY Plt Morph Kay l (04/19/20 5:04 AM) Normal 04/19/2020 [facility] HEMATOLOGY Segs 76.2 45.0 - 75.0 04/19/2020 [facility] HEMATOLOGY Lymphocytes 15.3 20.0 - 40.0 04/19/2020 [facility] HEMATOLOGY Monocytes 7.2 2.0 - 12.0 04/19/2020 [facility] HEMATOLOGY Eosinophils 0.6 0.0 - 4.0 04/19/2020 [facility] HEMATOLOGY Basophils 0.7 0.0 - 1.0 04/19/2020 [facility] HEMATOLOGY Neutrophils # 3.5 1.5 - 8.1 04/19/2020 [facility] HEMATOLOGY Lymphocytes # 0.7 1.0 - 5.5 04/19/2020 [facility] HEMATOLOGY Monocytes # 0.3 0.0 - 0.8 04/19/2020 [facility] HEMATOLOGY Hypochrom 1+ (04/19/20 5:04 AM) None Seen 04/19/2020 [facility] HEMATOLOGY WBC 4.6 3.7 - 10.4 04/19/2020 [facility] HEMATOLOGY RBC 4.73 4.70 - 6.10 04/19/2020 [facility] Hgb 12.8 14.0 - 18.0 04/19/2020 [facility] HEMATOLOGY Hct 41.5 42.0 - 54.0 04/19/2020 [facility] HEMATOLOGY MCV 87.8 80.0 - 94.0 04/19/2020 [facility] MCH 27.1 27.0 - 31.0 04/19/2020 [facility] MCHC 30.8 32.0 - 36.0 04/19/2020 [facility] HEMATOLOGY RDW 19.5 11.5 - 14.5 04/19/2020 [facility] HEMATOLOGY Platelet 194 133 - 450 04/19/2020 [facility] MPV 7.8 7.4 - 10.4 04/19/2020 [facility] CHEM PANEL Glucose Lvl 77 70 - 99 04/18/2020 [facility] CHEM PANEL BUN 41 7 - 22 04/18/2020 [facility] CHEM PANEL Creatinine Lvl 1.60 0.50 - 1.40 04/18/2020 [facility] CHEM PANEL Sodium Lvl 138 135 - 145 04/18/2020 [facility] CHEM PANEL Chloride Lvl 98 95 - 109 04/18/2020 [facility] CHEM PANEL CO2 37 24 - 32 04/18/2020 [facility] CHEM PANEL AGAP 6.0 10.0 - 20.0 04/18/2020 [facility] CHEM PANEL Calcium Lvl 9.0 8.5 - 10.5 04/18/2020 [facility] CHEM PANEL eGFR 42 04/18/2020 Result [...] should be multiplied by the estimated BMI. [facility] CHEM PANEL Magnesium Lvl 2.1 1.8 - 2.4 04/18/2020 [facility] HEMATOLOGY WBC 4.8 3.7 - 10.4 04/18/2020 [facility] HEMATOLOGY RBC 4.57 4.70 - 6.10 04/18/2020 [facility] Hgb 12.5 14.0 - 18.0 04/18/2020 [facility] Hct 40.3 42.0 - 54.0 04/18/2020 [facility] MCV 88.3 80.0 - 94.0 04/18/2020 [facility] MCH 27.3 27.0 - 31.0 04/18/2020 [facility] MCHC 30.9 32.0 - 36.0 04/18/2020 [facility] RDW 19.9 11.5 - 14.5 04/18/2020 [facility] Platelet 196 133 - 450 04/18/2020 [facility] MPV 7.9 7.4 - 10.4 04/18/2020 [facility] Plt Morph Kay l (04/18/20 6:25 AM) Normal 04/18/2020 [facility] HEMATOLOGY Segs 73.6 45.0 - 75.0 04/18/2020 [facility] Lymphocytes 17.5 20.0 - 40.0 04/18/2020 [facility] Monocytes 8.1 2.0 - 12.0 04/18/2020 [facility] HEMATOLOGY Eosinophils 0.3 0.0 - 4.0 04/18/2020 [facility] HEMATOLOGY Basophils 0.5 0.0 - 1.0 04/18/2020 [facility] HEMATOLOGY Neutrophils # 3.6 1.5 - 8.1 04/18/2020 [facility] HEMATOLOGY Lymphocytes # 0.8 1.0 - 5.5 04/18/2020 [facility] HEMATOLOGY Monocytes # 0.4 0.0 - 0.8 04/18/2020 [facility] HEMATOLOGY Anisocyte 1+ *ABN* (04/18/20 6:25 AM) None Seen 04/18/2020 [facility] HEMATOLOGY Hypochrom 1+ (04/18/20 6:25 AM) None Seen 04/18/2020 [facility] TOXICOLOGY Vanco Lvl 15.8 04/17/2020 [facility] TOXICOLOGY Vanco Lvl 17.9 04/16/2020 [facility] CARDIAC ENZYMES BNP 420 <=100 pg/mL 04/15/2020 [facility] CHEM PANEL Phosphorus 3.1 2.5 - 4.5 04/15/2020 [facility] Basophils # 0.1 0.0 - 0.2 04/15/2020 [facility] Hypochrom 1+ (04/15/20 5:56 AM) None Seen 04/15/2020 [facility] TOXICOLOGY Vanco Lvl 25.5 04/14/2020 [facility] BACTERIAL - SEROLOGY MRSA by PCR Negative (04/14/20 7:47 AM) 04/14/2020 [facility] CARDIAC ENZYMES Troponin-I 0.13 0.00 - 0.40 04/14/2020 [facility] CHEM PANEL Phosphorus 4.5 2.5 - 4.5 04/14/2020 [facility] Sed Rate 54 0 - 15 04/14/2020 [facility] C-REACTIVE PROTEIN 106.0 <=2.9 mg/L 04/14/2020 [facility] CARDIAC ENZYMES Troponin-I 0.15 0.00 - 0.40 04/13/2020 [facility] IMMUNOLOGY Spec Type (UPE) rando m, 100x 04/13/2020 [facility] IMMUNOLOGY Tot Prot (UPE) 31 04/13/2020 [facility] IMMUNOLOGY Interp (UPE) Urine protein consists primarily of albumin. No monoclonal bands are identified. Interpretation performed at [facility]. 04/13/2020 [facility] URINE AND STOOL UA Turbidity Slight *ABN* (04/13/20 5:27 PM) Clear 04/13/2020 [facility] URINE AND STOOL UA Spec Grav 1.017 <=1.030 04/13/2020 [facility] URINE AND STOOL UA pH 5.0 5.0 - 8.0 04/13/2020 [facility] URINE AND STOOL UA Protein Negative mg/dL Negative mg/dL 04/13/2020 [facility] URINE AND STOOL UA Glucose Negative mg/dL Negative mg/dL 04/13/2020 [facility] URINE AND STOOL UA Ketones Negative mg/dL Negative mg/dL 04/13/2020 [facility] URINE AND STOOL UA Bili Negative *NA* (04/13/20 5:27 PM) Negative 04/13/2020 [facility] URINE AND STOOL UA Blood Negative (04/13/20 5:27 PM) Negative 04/13/2020 [facility] URINE AND STOOL UA Nitrite Positive *ABN* (04/13/20 5:27 PM) Negative 04/13/2020 [facility] URINE AND STOOL UA Leuk Est Negative (04/13/20 5:27 PM) Negative 04/13/2020 [facility] URINE AND STOOL UA Sq Epi Occasional /LPF Few /LPF 04/13/2020 [facility] URINE AND STOOL UA WBC 2 0 - 5 04/13/2020 [facility] URINE AND STOOL UA RBC 1 0 - 2 04/13/2020 [facility] URINE AND STOOL UA Bacteria Occasional /HPF None Seen /HPF 04/13/2020 [facility] URINE AND STOOL UA Hyal Cast 83 0 - 2 04/13/2020 [facility] URINE AND STOOL UA Color Demi 04/13/2020 [facility] URINE AND STOOL UA Urobilinogen <=1.0 mg/dL 0.1 - 1.0 04/13/2020 [facility] URINE CHEM U Prot/Creat 0.17 04/13/2020 [facility] URINE CHEM U Creatinine 206.00 04/13/2020 [facility] URINE CHEM U Sodium 12 04/13/2020 [facility] URINE CHEM U Protein 36.0 04/13/2020 [facility] URINE CHEM U Eos None Seen (04/13/20 5:27 PM) None Seen 04/13/2020 [facility] CARDIAC ENZYMES BNP 443 <=100 pg/mL 04/13/2020 [facility] CARDIAC ENZYMES Total CK 81 12 - 191 04/13/2020 [facility] CARDIAC ENZYMES Troponin-I 0.06 0.00 - 0.40 04/13/2020 [facility] CHEM PANEL Procalcitonin Lvl 0.58 0.00 - 0.10 04/13/2020 [facility] CHEM PANEL Total Protein 6.1 6.4 - 8.4 04/13/2020 [facility] CHEM PANEL Albumin Lvl 2.6 3.5 - 5.0 04/13/2020 [facility] CHEM PANEL ALT 21 0 - 65 04/13/2020 [facility] CHEM PANEL AST 25 0 - 37 04/13/2020 [facility] CHEM PANEL Alk Phos 75 39 - 136 04/13/2020 [facility] CHEM PANEL Bili Total 0.5 0.2 - 1.3 04/13/2020 [facility] CHEM PANEL B/C Ratio 23 6 - 25 04/13/2020 [facility] CHEM PANEL Globulin 3.5 2.7 - 4.2 04/13/2020 [facility] CHEM PANEL A/G Ratio 0.7 0.7 - 1.6 04/13/2020 [facility] CHEM PANEL Lactic Acid Lvl 2.0 0.5 - 2.2 04/13/2020 [facility] HEMATOLOGY D-Dimer 0.94 04/13/2020 [facility] HEMATOLOGY PT 13.2 12.0 - 14.7 04/13/2020 [facility] HEMATOLOGY INR 1.00 0.85 - 1.17 04/13/2020 [facility] HEMATOLOGY PTT 28.1 22.9 - 35.8 04/13/2020 [facility] DIAGNOSTIC S. aureus Not Detected (04/13/20 10:56 AM) Not Detected 04/13/2020 [facility] DIAGNOSTIC S. epidermidis Detected *ABN* (04/13/20 10:56 AM) Not Detected 04/13/2020 [facility] S. lugdunensis Not Detected (04/13/20 10:56 AM) Not Detected 04/13/2020 [facility] DIAGNOSTIC S. anginosus gr p Not Detected (04/13/20 10:56 AM) Not Detected 04/13/2020 [facility] DIAGNOSTIC S. agalactiae Not Detected (04/13/20 10:56 AM) Not Detected 04/13/2020 [facility] DIAGNOSTIC S. pneumoniae Not Detected (04/13/20 10:56 AM) Not Detected 04/13/2020 [facility] DIAGNOSTIC S. pyogenes Not Detected (04/13/20 10:56 AM) Not Detected 04/13/2020 [facility] DIAGNOSTIC E. faecalis Not Detected (04/13/20 10:56 AM) Not Detected 04/13/2020 [facility] E. faecium Not Detected (04/13/20 10:56 AM) Not Detected 04/13/2020 [facility] Staphylococcus spp. Detected *ABN* (04/13/20 10:56 AM) Not Detected 04/13/2020 [facility] Streptococcus s pp. Not Detected (04/13/20 10:56 AM) Not Detected 04/13/2020 [facility] Listeria spp. Not Detected (04/13/20 10:56 AM) Not Detected 04/13/2020 [facility] mecA Methicilli n Resistance Detected *ABN* (04/13/20 10:56 AM) Not Detected 04/13/2020 [facility] Daisha Vancomycin Resistance Not Detected (04/13/20 10:56 AM) Not Detected 04/13/2020 [facility] vanB Vancomycin Resistance Not Detected (04/13/20 10:56 AM) Not Detected 04/13/2020 [facility] TOXICOLOGY Vanco Tr 17.9 04/12/2020 [facility] TOXICOLOGY Vanco Tr TND 1930 04/12/2020 [facility] CHEM PANEL Glucose Lvl 108 70 - 99 04/10/2020 [facility] CHEM PANEL BUN 64 7 - 22 04/10/2020 [facility] CHEM PANEL Creatinine Lvl 1.77 0.50 - 1.40 04/10/2020 [facility] CHEM PANEL Sodium Lvl 136 135 - 145 04/10/2020 [facility] CHEM PANEL Potassium Lvl 3.7 3.5 - 5.1 04/10/2020 [facility] CHEM PANEL Chloride Lvl 91 95 - 109 04/10/2020 [facility] CHEM PANEL CO2 42 24 - 32 04/10/2020 Result Comment: Critical Result(s) called to Margarette Mathew at 04/10/2020 06:21 by . Read back OK. [facility] CHEM PANEL AGAP 6.7 10.0 - 20.0 04/10/2020 [facility] CHEM PANEL Calcium Lvl 9.2 8.5 - 10.5 04/10/2020 [facility] CHEM PANEL eGFR 37 04/10/2020 Result Comment: [...] should be multiplied by the estimated BMI. [facility] TOXICOLOGY Vanco Tr 17.8 04/10/2020 [facility] TOXICOLOGY Vanco Tr TND 2000 04/10/2020 [facility] CHEM PANEL Glucose Lvl 136 70 - 99 04/09/2020 [facility] CHEM PANEL BUN 69 7 - 22 04/09/2020 [facility] CHEM PANEL Creatinine Lvl 2.00 0.50 - 1.40 04/09/2020 [facility] CHEM PANEL Sodium Lvl 137 135 - 145 04/09/2020 [facility] CHEM PANEL Potassium Lvl 4.1 3.5 - 5.1 04/09/2020 [facility] CHEM PANEL Chloride Lvl 91 95 - 109 04/09/2020 [facility] CHEM PANEL CO2 35 24 - 32 04/09/2020 [facility] CHEM PANEL AGAP 15.1 10.0 - 20.0 04/09/2020 [facility] CHEM PANEL Calcium Lvl 9.5 8.5 - 10.5 04/09/2020 [facility] CHEM PANEL eGFR 32 04/09/2020 Result Comment: [...] should be multiplied by the estimated BMI. [facility] TOXICOLOGY Vanco Lvl 16.5 04/08/2020 [facility] CHEM PANEL Glucose Lvl 194 70 - 99 04/08/2020 [facility] CHEM PANEL BUN 65 7 - 22 04/08/2020 [facility] CHEM PANEL Creatinine Lvl 1.88 0.50 - 1.40 04/08/2020 [facility] CHEM PANEL Sodium Lvl 135 135 - 145 04/08/2020 [facility] CHEM PANEL Potassium Lvl 2.8 3.5 - 5.1 04/08/2020 Result Comment: Critical Result(s) harrison d to Filippo Gaona at 04/08/2020 11:26 by RG. Read back OK. [facility] CHEM PANEL Chloride Lvl 85 95 - 109 04/08/2020 [facility] CHEM PANEL CO2 43 24 - 32 04/08/2020 Result Comment: Critical Result(s) called to Filippo Gaona at 04/08/2020 11:27 by RG. Read back OK. [facility] CHEM PANEL AGAP 9.8 10.0 - 20.0 04/08/2020 [facility] CHEM PANEL Calcium Lvl 9.1 8.5 - 10.5 04/08/2020 [facility] CHEM PANEL eGFR 34 04/08/2020 Result Comment: [...] should be multiplied by the estimated BMI. [facility] HEMATOLOGY WBC 7.3 3.7 - 10.4 04/08/2020 [facility] HEMATOLOGY RBC 4.74 4.70 - 6.10 04/08/2020 [facility] HEMATOLOGY Hgb 12.8 14.0 - 18.0 04/08/2020 [facility] HEMATOLOGY Hct 41.2 42.0 - 54.0 04/08/2020 [facility] HEMATOLOGY MCV 86.8 80.0 - 94.0 04/08/2020 [facility] HEMATOLOGY MCH 27.0 27.0 - 31.0 04/08/2020 [facility] HEMATOLOGY MCHC 31.1 32.0 - 36.0 04/08/2020 [facility] HEMATOLOGY RDW 20.1 11.5 - 14.5 04/08/2020 [facility] HEMATOLOGY Platelet 156 133 - 450 04/08/2020 [facility] HEMATOLOGY MPV 7.4 7.4 - 10.4 04/08/2020 [facility] HEMATOLOGY Segs 83.0 45.0 - 75.0 04/08/2020 [facility] HEMATOLOGY Lymphocytes 11.0 20.0 - 40.0 04/08/2020 [facility] HEMATOLOGY Monocytes 5.3 2.0 - 12.0 04/08/2020 [facility] HEMATOLOGY Eosinophils 0.3 0.0 - 4.0 04/08/2020 [facility] HEMATOLOGY Basophils 0.4 0.0 - 1.0 04/08/2020 [facility] HEMATOLOGY Neutrophils # 6.1 1.5 - 8.1 04/08/2020 [facility] HEMATOLOGY Lymphocytes # 0.8 1.0 - 5.5 04/08/2020 [facility] HEMATOLOGY Monocytes # 0.4 0.0 - 0.8 04/08/2020 [facility] URINE AND STOOL POC UA Color Yellow *NA* (04/04/20 2:09 PM) Yellow 04/04/2020 [facility] URINE AND STOOL POC UA Turbidity Clear *NA* (04/04/20 2:09 PM) Clear 04/04/2020 [facility] URINE AND STOOL POC UA SG 1.015 <=1.030 04/04/2020 [facility] URINE AND STOOL POC UA pH 6.0 5.0 - 8.0 04/04/2020 [facility] URINE AND STOOL POC UA Prot Negative mg/dL Negative mg/dL 04/04/2020 [facility] URINE AND STOOL POC UA Glu 250 mg/dL Negative mg/dL 04/04/2020 [facility] URINE AND STOOL POC UA Ket Negative mg/dL Negative mg/dL 04/04/2020 [facility] URINE AND STOOL POC UA Bili Negative *NA* (04/04/20 2:09 PM) Negative 04/04/2020 [facility] URINE AND STOOL POC UA Bld Negative *NA* (04/04/20 2:09 PM) Negative 04/04/2020 [facility] URINE AND STOOL POC UA Uro 0.2 0.1 - 1.0 04/04/2020 [facility] URINE AND STOOL POC UA Nit Negative *NA* (04/04/20 2:09 PM) Negative 04/04/2020 [facility] URINE AND STOOL POC UA LeukEst Trace *ABN* (04/04/20 2:09 PM) Negative 04/04/2020 [facility] IMMUNOLOGY Coronavirus (COVID-19) NA A Not Detected (04/04/20 10:15 AM) Not Detected 04/04/2020 [facility] BLOOD BANK RESULTS ABO/Rh O POS 04/03/2020 [facility] BLOOD BANK RESULTS Antibody Scrn Negative (04/03/20 2:17 PM) 04/03/2020 [facility] CHEM PANEL B/C Ratio 41 6 - 25 04/03/2020 [facility] CHEM PANEL Total Protein 6.5 6.4 - 8.4 04/03/2020 [facility] CHEM PANEL Albumin Lvl 3.3 3.5 - 5.0 04/03/2020 [facility] CHEM PANEL Globulin 3.2 2.7 - 4.2 04/03/2020 [facility] CHEM PANEL A/G Ratio 1.0 0.7 - 1.6 04/03/2020 [facility] CHEM PANEL ALT 25 0 - 65 04/03/2020 [facility] CHEM PANEL AST 17 0 - 37 04/03/2020 [facility] CHEM PANEL Alk Phos 105 39 - 136 04/03/2020 [facility] CHEM PANEL Bili Total 0.5 0.2 - 1.3 04/03/2020 [facility] HEMATOLOGY WBC 7.9 3.7 - 10.4 04/03/2020 [facility] HEMATOLOGY RBC 4.91 4.70 - 6.10 04/03/2020 [facility] HEMATOLOGY Hgb 13.5 14.0 - 18.0 04/03/2020 [facility] HEMATOLOGY Hct 42.7 42.0 - 54.0 04/03/2020 [facility] HEMATOLOGY MCV 86.8 80.0 - 94.0 04/03/2020 [facility] HEMATOLOGY MCH 27.4 27.0 - 31.0 04/03/2020 [facility] HEMATOLOGY MCHC 31.6 32.0 - 36.0 04/03/2020 [facility] HEMATOLOGY RDW 19.5 11.5 - 14.5 04/03/2020 [facility] HEMATOLOGY Platelet 184 133 - 450 04/03/2020 [facility] HEMATOLOGY MPV 7.7 7.4 - 10.4 04/03/2020 [facility] HEMATOLOGY R-time 5.0 5.0 - 10.0 04/03/2020 [facility] HEMATOLOGY K-time 1.4 1.0 - 3.0 04/03/2020 [facility] HEMATOLOGY Angle 67.5 53.0 - 72.0 04/03/2020 [facility] HEMATOLOGY Max Amp 65.7 50.0 - 70.0 04/03/2020 [facility] HEMATOLOGY G-value 9.6 4.5 - 11.0 04/03/2020 [facility] HEMATOLOGY Ly30 0.0 0.0 - 7.5 04/03/2020 [facility] HEMATOLOGY Coag Index 1.6 -3.0-3.0 - 3.0 04/03/2020 [facility] HEMATOLOGY TEG Data See N ote (04/03/20 2:17 PM) 04/03/2020 [facility] HEMATOLOGY TEG Interp Throm belastograph results are within reference ranges. These indicate adequate hemostasis. Note that TEG does not show effect of NSAIDs or P2Y12 inhibitors. CPT:07004 04/03/2020 [facility] HEMATOLOGY Neutrophils # 6.6 1.5 - 8.1 04/03/2020 [facility] HEMATOLOGY Lymphocytes # 0.6 1.0 - 5.5 04/03/2020 [facility] HEMATOLOGY Monocytes # 0.5 0.0 - 0.8 04/03/2020 [facility] HEMATOLOGY Eosinophils # 0.1 0.0 - 0.5 04/03/2020 [facility] HEMATOLOGY Segs 83.0 45.0 - 75.0 04/03/2020 [facility] HEMATOLOGY Bands 0.0 0.0 - 11.0 04/03/2020 [facility] HEMATOLOGY Lymphocytes 8.0 20.0 - 40.0 04/03/2020 [facility] HEMATOLOGY Monocytes 6.0 2.0 - 12.0 04/03/2020 [facility] HEMATOLOGY Eosinophils 1.0 0.0 - 4.0 04/03/2020 [facility] HEMATOLOGY Metamyelocytes 1.0 0.0 - 1.0 04/03/2020 [facility] HEMATOLOGY Myelocytes 1.0 <=0.0 % 04/03/2020 [facility] HEMATOLOGY Atypical Lymphs 0.0 <=0.0 % 04/03/2020 [facility] HEMATOLOGY NRBC 1 04/03/2020 [facility] HEMATOLOGY Plt Morph Kay l (04/03/20 2:17 PM) Normal 04/03/2020 [facility] HEMATOLOGY Anisocyte 1+ *ABN* (04/03/20 2:17 PM) None Seen 04/03/2020 [facility] HEMATOLOGY Polychrom Slight 04/03/2020 [facility] IMMUNOLOGY C-REACTIVE PROTEIN 23.6 <=2.9 mg/L 04/03/2020 [facility] SPECIAL CHEMISTRY Hgb A1C 8.1 <=5.6 % 04/03/2020 [facility] HEMATOLOGY PT 13.6 12.0 - 14.7 11/10/2019 [facility] HEMATOLOGY INR 1.04 0.85 - 1.17 11/10/2019 [facility] HEMATOLOGY PTT 25.1 22.9 - 35.8 11/10/2019 [facility] BLOOD BANK RESULTS ABO/Rh O POS 11/10/2019 [facility] BLOOD BANK RESULTS Antibody Scrn Negative (11/10/19 10:59 AM) 11/10/2019 [facility] BLOOD BANK RESULTS RBC product Product available (11/10/19 10:59 AM) 11/10/2019 [facility] CHEM PANEL Glucose Lvl 168 70 - 99 11/10/2019 [facility] CHEM PANEL BUN 49 7 - 22 11/10/2019 [facility] CHEM PANEL Creatinine Lvl 1.51 0.50 - 1.40 11/10/2019 [facility] CHEM PANEL Sodium Lvl 138 135 - 145 11/10/2019 [facility] CHEM PANEL Potassium Lvl 3.4 3.5 - 5.1 11/10/2019 [facility] CHEM PANEL Chloride Lvl 93 95 - 109 11/10/2019 [facility] CHEM PANEL CO2 36 24 - 32 11/10/2019 [facility] CHEM PANEL Calcium Lvl 8.8 8.5 - 10.5 11/10/2019 [facility] CHEM PANEL AGAP 12.4 10.0 - 20.0 11/10/2019 [facility] CHEM PANEL eGFR 45 11/10/2019 Result Comment: [...] should be multiplied by the estimated BMI. [facility] CHEM PANEL Magnesium Lvl 2.1 1.8 - 2.4 11/10/2019 [facility] HEMATOLOGY Segs 88.7 45.0 - 75.0 11/10/2019 [facility] HEMATOLOGY Lymphocytes 6.8 20.0 - 40.0 11/10/2019 [facility] HEMATOLOGY Monocytes 4.4 2.0 - 12.0 11/10/2019 [facility] HEMATOLOGY Basophils 0.1 0.0 - 1.0 11/10/2019 [facility] HEMATOLOGY Neutrophils # 9.3 1.5 - 8.1 11/10/2019 [facility] HEMATOLOGY Lymphocytes # 0.7 1.0 - 5.5 11/10/2019 [facility] HEMATOLOGY Monocytes # 0.5 0.0 - 0.8 11/10/2019 [facility] HEMATOLOGY WBC 10.5 3.7 - 10.4 11/10/2019 [facility] HEMATOLOGY RBC 4.95 4.70 - 6.10 11/10/2019 [facility] HEMATOLOGY Hgb 12.4 14.0 - 18.0 11/10/2019 [facility] HEMATOLOGY Hct 39.2 42.0 - 54.0 11/10/2019 [facility] HEMATOLOGY MCV 79.2 80.0 - 94.0 11/10/2019 [facility] HEMATOLOGY MCH 25.1 27.0 - 31.0 11/10/2019 [facility] HEMATOLOGY MCHC 31.7 32.0 - 36.0 11/10/2019 [facility] HEMATOLOGY RDW 19.6 11.5 - 14.5 11/10/2019 [facility] HEMATOLOGY Platelet 213 133 - 450 11/10/2019 [facility] HEMATOLOGY MPV 8.1 7.4 - 10.4 11/10/2019 [facility] CHEM PANEL Glucose Lvl 115 70 - 99 10/17/2019 [facility] CHEM PANEL BUN 51 7 - 22 10/17/2019 [facility] CHEM PANEL Creatinine Lvl 1.65 0.50 - 1.40 10/17/2019 [facility] CHEM PANEL Sodium Lvl 140 135 - 145 10/17/2019 [facility] CHEM PANEL Potassium Lvl 3.8 3.5 - 5.1 10/17/2019 [facility] CHEM PANEL Chloride Lvl 99 95 - 109 10/17/2019 [facility] CHEM PANEL CO2 40 24 - 32 10/17/2019 Result Comment: Critical Result(s) called to Shavon Hawkins at 10/16/2019 18:26 by . Read back OK. [facility] CHEM PANEL AGAP 4.8 10.0 - 20.0 10/17/2019 [facility] CHEM PANEL Calcium Lvl 9.1 8.5 - 10.5 10/17/2019 [facility] CHEM PANEL eGFR 40 10/17/2019 Result Comment: [...] should be multiplied by the estimated BMI. [facility] HEMATOLOGY Neutrophils # 8.4 1.5 - 8.1 10/17/2019 [facility] HEMATOLOGY Lymphocytes # 1.5 1.0 - 5.5 10/17/2019 [facility] HEMATOLOGY Monocytes # 0.7 0.0 - 0.8 10/17/2019 [facility] HEMATOLOGY Segs 78.0 45.0 - 75.0 10/17/2019 [facility] HEMATOLOGY Bands 1.0 0.0 - 11.0 10/17/2019 [facility] HEMATOLOGY Lymphocytes 14.0 20.0 - 40.0 10/17/2019 [facility] HEMATOLOGY Monocytes 7.0 2.0 - 12.0 10/17/2019 [facility] HEMATOLOGY Atypical Lymphs 0.0 <=0.0 % 10/17/2019 [facility] HEMATOLOGY NRBC 1 10/17/2019 [facility] HEMATOLOGY Anisocyte 1+ *ABN* (10/16/19 6:05 PM) None Seen 10/17/2019 [facility] HEMATOLOGY Microcyte 1+ *ABN* (10/16/19 6:05 PM) None Seen 10/17/2019 [facility] HEMATOLOGY Polychrom Moder ate *ABN* (10/16/19 6:05 PM) None Seen 10/17/2019 [facility] HEMATOLOGY Toxic Gran slight 10/17/2019 [facility] HEMATOLOGY Large Plt slight 10/17/2019 [facility] HEMATOLOGY WBC 10.6 3.7 - 10.4 10/17/2019 [facility] HEMATOLOGY RBC 4.67 4.70 - 6.10 10/17/2019 [facility] HEMATOLOGY Hgb 11.5 14.0 - 18.0 10/17/2019 [facility] HEMATOLOGY Hct 36.7 42.0 - 54.0 10/17/2019 [facility] HEMATOLOGY MCV 78.6 80.0 - 94.0 10/17/2019 [facility] HEMATOLOGY MCH 24.5 27.0 - 31.0 10/17/2019 [facility] HEMATOLOGY MCHC 31.2 32.0 - 36.0 10/17/2019 [facility] HEMATOLOGY RDW 18.7 11.5 - 14.5 10/17/2019 [facility] HEMATOLOGY Platelet 191 133 - 450 10/17/2019 [facility] HEMATOLOGY MPV 7.7 7.4 - 10.4 10/17/2019 [facility] HEMATOLOGY PTT 26.9 22.9 - 35.8 10/17/2019 [facility] HEMATOLOGY PT 15.1 12.0 - 14.7 10/17/2019 [facility] HEMATOLOGY INR 1.18 0.85 - 1.17 10/17/2019 [facility] URINE AND STOOL POC UA Bld Trace *NA* (05/18/19 12:35 PM) Negative 05/18/2019 [facility] URINE AND STOOL POC UA Bili Negative *NA* (05/18/19 12:35 PM) Negative 05/18/2019 [facility] URINE AND STOOL POC UA Ket Negative mg/dL Negative mg/dL 05/18/2019 [facility] URINE AND STOOL POC UA Uro 0.2 0.1 - 1.0 05/18/2019 [facility] URINE AND STOOL POC UA Nit Positive *ABN* (05/18/19 12:35 PM) Negative 05/18/2019 [facility] URINE AND STOOL POC UA LeukEst Small *ABN* (05/18/19 12:35 PM) Negative 05/18/2019 [facility] URINE AND STOOL POC UA Color Yellow *NA* (05/18/19 12:35 PM) Yellow 05/18/2019 [facility] URINE AND STOOL POC UA Turbidity Clear *NA* (05/18/19 12:35 PM) Clear 05/18/2019 [facility] URINE AND STOOL POC UA SG 1.015 <=1.030 05/18/2019 [facility] URINE AND STOOL POC UA Glu Negative mg/dL Negative mg/dL 05/18/2019 [facility] URINE AND STOOL POC UA pH 6.5 5.0 - 8.0 05/18/2019 [facility] URINE AND STOOL POC UA Prot Negative mg/dL Negative mg/dL 05/18/2019 [facility] CHEM PANEL eGFR 55 06/24/2016 [...] should be multiplied by the estimated BMI. [facility] CHEM PANEL POC Creatinine 1.3 0.5 - 1.4 06/24/2016 [facility] CHEM PANEL eGFR 55 04/10/2016 Result [...] should be multiplied by the estimated BMI. [facility] CHEM PANEL POC Creatinine 1.3 0.5 - 1.4 04/10/2016 [facility] Pathology Reports No Data Provided for [...] 2017 Jeremi Combs MD On 04/17/2020 09:38:05; [id number] 04/16/2020 [facility] Spine Thoracic wo contrast MRI Findings of prominent epidural fat from T4-T9 with mild compression of the thoracic spinal cord from T4-T8 discussed with Dr. Salmon via telephone on 04/16/2020 at 12:10 a.m. central time. Momo Bangura MD On 04/16/2020 00:12:09; [id number] PROCEDURE INFORMATION: Exam: MR Thoracic Spine Without [...] stenosis. Momo Bangura MD On 04/16/2020 00:02:15; [id number] 04/15/2020 [facility] Spine lumbar wo contrast MRI P [...] L5-S1. Skylar Rodas MD On 04/15/2020 23:48:44; [id number] 04/15/2020 [facility] Abdomen AP DX PROCEDURE INFORM ATION: [...] pelvis. Garry Lira MD On 04/14/2020 16:07:32; [id number] 04/14/2020 [facility] Retroperitoneal Complete US ID OCEDURE INFORMATION: Exam: US Retroperitoneal; Complete; Kidneys [...] imaging. Jose Rojo DO On 04/13/2020 17:11:56; [id number] 04/13/2020 [facility] 1view DX PROCEDURE INFOR MATION: Exam: XR [...] Steward MD On 04/13/2020 10:40:11; [id number] 04/13/2020 [facility] 1 v for Placement DX EXA M: [...] fracture deformities in the left hemithorax. 04/11/2020 [facility] Chest 2 views DX EXAM: XR CHES [...] 2. Mild bibasilar subsegmental atelecta sis. 04/03/2020 [facility] Spine Thoracic wo contrast MRI PROCEDURE INFORMATION: [...] exam. Nate Baig MD On 02/03/2020 10:12:14; [id number] 02/02/2020 [facility] Spine lumbar wo contrast MRI P [...] study. Nate Baig MD On 02/03/2020 09:39:50; [id number] 02/02/2020 [facility] Bone Density DXA [employer] MA MALE BONE DENSITY ASSESSMENT: 07/23/2019 CLINICAL DATA: Clinical risk for osteoporosis. 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 This exam was interpreted at [id number] for JOVI Pyle, 15. 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 SL: [id number] 12/04/2017 [facility] Spine cervical wo contrast MRI Study: [...] foraminal narrowing, left greater than right. SL: [id number] 12/04/2017 [facility] pelvis and [...] nerve sheath tumor, or epidermoid cyst. SL: [id number] 06/24/2016 [facility] Spine lumbar w/wo contrast MRI Patient Name: STEVE BENEDICT : 1945; Age: 70 years y/o Male MR: [id number] Study: Spine lumbar w/wo contrast MRI 06/24/2016 [...] compatible with acute on chronic denervation. SL: [id number] 06/24/2016 [facility] Spine thoracic wo contrast CT CT [...] No acute abnormalities are visualized . SL:06/19/2016 [facility] lumbar wo contrast CT CT THORACIC [...] No acute abnormalities are visualized . SL:06/19/2016 [facility] cervical 2 or 3 view DX [...] 2. No acute fracture or malalignment. 04/23/2016 [facility] Spine Thoracic w/wo contrast MRI MRI [...] multip le bilateral renal cysts. SL:16 04/10/2016 [facility] Spine lumbar w/wo contrast MRI EXAM: [...] smoking and anemia among other etiologies. SL: [id number] 03/28/2016 [facility] Consultation Notes No Data Provided for This Section Discharge Summaries No Data Provided for This Section History and Physicals No Data Provided for This Section Vital Signs Vital Sign Value Date Comments Source Temperature Oral (F) 98 F 04/20/2020 [facility] Heart Rate 93 04/20/2020 [facility] Respitory Rate 18 04/20/2020 [facility] Systolic (mm Hg) 120 04/20/2020 [facility] Diastolic (mm Hg) 79 04/20/2020 [facility] Temperature Oral (F) 97.9 F 04/20/2020 [facility] Heart Rate 96 04/20/2020 [facility] Systolic (mm Hg) 135 04/20/2020 [facility] Diastolic (mm Hg) 90 04/20/2020 [facility] Respitory Rate 18 04/20/2020 [facility] Temperature Oral (F) 98.0 F 04/20/2020 [facility] Heart Rate 80 04/20/2020 [facility] Systolic (mm Hg) 135 04/20/2020 [facility] Diastolic (mm Hg) 89 04/20/2020 [facility] Respitory Rate 18 04/20/2020 [facility] Height 175.26 cm 04/14/2020 [facility] Weight 107.004 04/14/2020 [facility] BMI Calculated 34.84 04/14/2020 [facility] Height 175.26 cm 04/13/2020 [facility] BMI Calculated 32.26 04/13/2020 [facility] Weight 99.091 04/13/2020 [facility] Temperature Oral (F) 97.9 F 04/13/2020 [facility] Heart Rate 64 04/13/2020 [facility] Respitory Rate 16 04/13/2020 [facility] Systolic (mm Hg) 105 04/13/2020 [facility] Diastolic (mm Hg) 60 04/13/2020 [facility] Systolic (mm Hg) 97 04/12/2020 [facility] Diastolic (mm Hg) 63 04/12/2020 [facility] Temperature Oral (F) 97.0 F 04/12/2020 [facility] Heart Rate 68 04/12/2020 [facility] Respitory Rate 20 04/12/2020 [facility] Systolic (mm Hg) 95 04/12/2020 [facility] Diastolic (mm Hg) 53 04/12/2020 [facility] Temperature Oral (F) 98.1 F 04/12/2020 [facility] Heart Rate 89 04/12/2020 [facility] Respitory Rate 20 04/12/2020 [facility] Height 175.26 cm 04/07/2020 [facility] Weight 99.091 04/07/2020 [facility] BMI Calculated 32.26 04/07/2020 [facility] Height 175.26 cm 04/07/2020 [facility] Weight 99.2 04/07/2020 [facility] Height 175.26 cm 04/07/2020 [facility] Weight 99.2 04/07/2020 [facility] BMI Calculated 32.3 04/07/2020 [facility] Height 175.26 cm 04/04/2020 [facility] Weight 98.324 04/04/2020 [facility] BMI Calculated 32.01 04/04/2020 [facility] BMI Calculated 31.97 04/03/2020 [facility] Respitory Rate 15 11/11/2019 [facility] Systolic (mm Hg) 110 11/11/2019 [facility] Diastolic (mm Hg) 70 11/11/2019 [facility] Respitory Rate 19 11/11/2019 [facility] Systolic (mm Hg) 146 11/11/2019 [facility] Diastolic (mm Hg) 86 11/11/2019 [facility] Respitory Rate 23 11/11/2019 [facility] Systolic (mm Hg) 113 11/11/2019 [facility] Diastolic (mm Hg) 68 11/11/2019 [facility] Temperature Oral (F) 97.6 F 11/10/2019 [facility] Height 175.26 cm 11/10/2019 [facility] Weight 94.091 11/10/2019 [facility] BMI Calculated 30.63 11/10/2019 [facility] Respitory Rate 18 10/17/2019 [facility] Systolic (mm Hg) 135 10/17/2019 [facility] Diastolic (mm Hg) 72 10/17/2019 [facility] Systolic (mm Hg) 129 10/17/2019 [facility] Diastolic (mm Hg) 75 10/17/2019 [facility] Respitory Rate 18 10/17/2019 [facility] Temperature Oral (F) 98.4 F 10/17/2019 [facility] Systolic (mm Hg) 150 10/17/2019 [facility] Diastolic (mm Hg) 89 10/17/2019 [facility] Respitory Rate 18 10/17/2019 [facility] Temperature Oral (F) 98.0 F 10/17/2019 [facility] Heart Rate 95 10/16/2019 [facility] Temperature Oral (F) 98.4 F 10/16/2019 [facility] Height 175.26 cm 06/02/2019 [facility] Weight [...] Provider ADM Date DC Date Status Source [facility]patient [facility] [place] [facility] [id number] Monique Reed 03/06/2016 03/07/2016 [facility] Outpatient [id number] Christopher Summers 03/28/2016 03/29/2016 [facility] Outpatient [facility] - [place] [facility] [id number] Angel Martínez 04/02/2016 04/03/2016 [facility] Outpatient [id number] Elida Valenzuela 04/10/2016 04/11/2016 [facility] Outpatient Imaging - [place] [facility] [id number] Monique Reed 04/23/2016 04/24/2016 [facility] Outpatient [id number] NEIL DANIEL 06/06/2016 [facility] Outpatient [id number] Neil Daniel Jr 06/19/2016 06/20/2016 [facility] Outpatient [id number] Neil Daniel Jr 06/24/2016 06/25/2016 [facility] Outpatient [id number] NEIL DANIEL 07/11/2016 Active [facility] Outpatient Imaging - [place] Outpt Diag Services [id number] Mila Jones 04/23/2017 04/24/2017 [facility] [place] [facility] Outpatient [id number] Oleksandr Uriarteanali 12/05/2017 12/05/2017 [facility] [place] Phone Message [phone] 11/04/1911/06/2018 [facility] Outpatient [id number] CARLA REYNAGA 11/30/2018 [facility] [id number] Carla Reynaga 11/30/2018 12/01/2018 [facility] Outpatient [id number] URODYNAMICS 12/16/2018 Active [facility] Outpatient [id number] CARLA REYNAGA 12/22/2018 Active [facility] Outpatient Imaging - [place] Outpt Diag Services [id number] Mila Jones 12/28/2018 12/29/2018 [facility] [place] Outpatient [id number] Carla Reynaga 02/02/2019 Active [facility] Outpatient [id number] Carla Reynaga 04/19/2019 Active [facility] Outpatient [id number] Carla Reynaga 04/19/2019 04/20/2019 [facility] Outpatient [id number] NURSE VISIT 04/21/2019 Active [facility] Ambulatory Pre-Reg [id number] Christopher Summers 04/21/2019 04/21/2019 [facility] Outpatient [id number] Carla Reynaga 05/04/2019 [facility] [id number] Christopher Summers 05/04/2019 05/04/2019 [facility]rology [facility] Ambulatory Pre-Reg [id number] Carla Reynaga 05/04/2019 05/04/2019 [facility] Outpatient [id number] - URODYNAMICS, 05/18/2019 Active [facility] Outpatient [id number] Christopher Kristopher 05/18/2019 05/19/2019 [facility] Ambulatory Pre-Reg [id number] Carla Reynaga 05/25/2019 05/25/2019 [facility] Outpatient [id number] MED_ASST VISIT 05/27/2019 Active [facility] [place] Outpatient [id number] Christopher Summers 05/27/2019 05/28/2019 [facility] Outpatient [id number] - URODYNAMICS, 06/01/2019 Active [facility] [place] Outpatient [id number] Christopher Summers 06/01/2019 06/02/2019 [facility] Outpatient [id number] Carla Reynaga 06/02/2019 Active [facility] [place] Outpatient [id number] Carla Reynaga 06/02/2019 06/03/2019 [facility] Outpatient [id number] - URODYNAMICS, 06/08/2019 Active [facility] Outpatient [id number] Carla Reynaga 06/14/2019 Active [facility] Outpatient Imaging - [place] Outpt Diag Services [id number] Mila Jones 07/23/2019 07/24/2019 [facility] Emergency [id number] Lucas Kennedycarrie 10/16/2019 10/17/2019 [facility] Inpatient [id number] Sheila Vásquez 11/10/2019 11/11/2019 [facility] Outpatient [id number] Morales Tolbert 02/02/2020 02/03/2020 [facility] Outpatient [id number] Carla Reynaga 02/03/2020 Active [facility] Outpatient [id number] Carla Reynaga 03/13/2020 Active [facility] Ambulatory Pre-Reg [id number] Carla Reynaga 03/13/2020 03/13/2020 [facility] Outpatient [id number] Carla Reynaga 04/04/2020 [facility] [place] Outpatient [id number] Carla Toñito 04/04/2020 04/05/2020 [facility] Inpatient [id number] Morales Tolbert 04/07/2020 04/13/2020 [facility] Inpatient [id number] Abdulaziz Tobin 04/13/2020 04/20/2020 [facility] Outpatient [id number] [facility] 07/04/2020 Active [facility] Procedures Procedure Code Date Perfomer Comments Source Measurement of post-voiding residual uri ne and/or bladder capacity by ultrasound, non-imaging 39137 04/04/2020 [facility] cystometrogram (ie, calibrated e lectronic equipment); with voiding pressure studies (ie, bladder voiding pressure), any technique 15320 06/02/2019 [facility] Voiding pressure studies, intra-abdomina l (ie, rectal, gastric, intraperitoneal) (List separately in addition to code for primary procedure) 47145 06/02/2019 [facility] uroflowmetry (eg, calibrated cecilia ctronic equipment) 05739 06/02/2019 [facility] Electromyography studies (EMG) of anal o r urethral sphincter, other than needle, any technique 26484 06/02/2019 [facility] Cystoscopy [id number] 08/25/2018 [facility] uroflowmetry [id number] 03/30/2018 [facility]ID [place],[facility] Catheter replacement [id number] [facility] [place],[facility] Fusion<sup>1</sup> [id number] cervical fusion done on 09/11/[address] Nilo Adames [facility] [place] Prostate manipulation [id number] [facility], [facility] [place],[facility] Stent replacement [id number] [facility], [facility] [place],[facility] Ablation [id number] [facility] Cataract surgery [id number] [facility] Colonoscopy [id number] [facility] Operation [id number] [facility] PCI - Percutaneous coronary intervention [id number] [facility] ,[facility] Assessment and Plan Assessment and Plan [...] adjustments at this time. He may continue [place] 5/325mg q6h as needed. He is pending thoracic laminectomy once left elbow infection is cleared. We will continue to monitor pulmonary status. We will continue to follow and make adjustments as needed. We have provided a discharge prescription to the patient's pharmacy for [place] 5/325mg #10. 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 Mcguire - home med: bumex 3 [...] while sleeping lovenox > 2 MNs 04/20/2020 [facility] Extracted from:Title: Infection Admissio n H&P * Author: Adan Nielsen MD Date: 04/12/20 Impression and Plan Open wound left elbow closed by Plastic Surgery Discussed plans with patient and all questions answered Vanco trough is therapeutic Vancomycin 1250 mg q24 h Rx for 14 days Monitor blood work Vanco trough ,CBC ,BMP ,UA weekly ,fax report to my office [phone] Call [phone] for an apt in 2 weeks Extracted from:Title: Infection Admission H&P * Author: Adan Nielsen MD Date: 04/07/20 Impression and Plan Open wound left elbow closed by Plastic Surgery No cultures To discuss antibiotic Rx regarding need and duration 04/13/2020 [facility] Extracted from:Title: EP Discharge Summa ry Author: Sheila Vásquez MD Date: 11/11/19 Discharge Plan Discharge Summary Plan Discharge Status: stable. Discharge instructions given: to patient. Discharge disposition: discharge to home. Prescriptions: continue same medications. Diagnosis Presence of Watchman left atrial appendage closure device ([id number] Z95.818, Working, Medical). Presence of Watchman left atrial appendage closure device (YIO48-NP Z95.818, Working, Medical). 11/11/2019 [facility] Extracted from:Title: Burn Surgery Consu lt Note [...] Nilo Trejo MD PGY1 Urology/General Surgery MSO #[id number] [place] Phone x [phone] (Spect); Page [phone] 10/17/2019 [facility] Plan of Care No Data Provided for [...] SMOKING entered on: 04/14/20 1Quit smoking 201104/03/2020 [facility] Social History TypeResponse Alcohol Never Substance Abuse Use: None. Smoking Status Former smoker; Ready to change: No; Concerns about tobacco use in household: No; Exposure to Tobacco Smoke None; Cigarette Smoking Last 365 Days No; Reg Smoking Cessation Counseling No; Other Tobacco Frequency QUIT SMOKING entered on: 04/14/20 1Quit smoking 201104/03/2020 [facility] Social History TypeResponse Smoking Status Former [...]
--- OUTSIDE RECORDS SUMMARY | 2020-06-21 08:47 | XMS REPORT | Clinical Summary ---
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
[2020-06-21] MEDS ORDERED: PANTOPRAZOLE 40 MG 10ML VIAL IV STA (08:51)
--- OUTSIDE RECORDS SUMMARY | 2020-06-21 08:52 | XMS REPORT | Continuity of Care Document ---
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 Geoff Doyle gabapentin 300 MG Oral Capsule 2020-04-07 22:00:00 No Notes: (Same as: Neurontin) Geoff Doyle methenamine hippurate 2020-04-07 22:00:00 No 25 gm, Route: PO, QAM & PM, Dosing Weight 99.2, kg, Start date: 04/07/20 17:00:00 CDT, Duration: 30 day, Stop date: 05/07/20 8:30:00 CDT, ABX Indication: Skin/Soft Tissue Infection Geoff Doyle Pramipexole 2020-04-07 22:00:00 No Notes: ( Same as: Mirapex) Geoff Doyle Sertraline 2020-04-07 22:00:00 No Notes: (S abelardo as: Zoloft) Geoff Doyle tamsulosin 2020-04-07 22:00:00 No Notes: (Same As: Flomax) "Do Not Crush" Geoff Doyle Cefazolin 2020-04-07 21:00:00 No Notes: (Same As: AncefButchzol) MEDICATION WASTE Product Size: 1000 mg Product Wasted: _0__ mg Geoff Doyle Dextrose 50% Syringe (D50W) 2020-04-07 20:48:00 No [...] room temperature. Expires in days from Date Geoff jones vancomycin + Sodium Chloride 0.9% IV 500 mL 2020-04-07 20:21:00 No 2001 mg: infuse over 2.5 hours For adult patients only: Round to nearest 250 mg per Medical Staff approval MEDICATION WASTE Product Size: 1000 mg Product Wasted: ___ mg Geoff Doyle Folic Acid 0.4 MG Oral Tablet 2020-04-07 19:19:00 Yes 0.4 mg = 1 tab, PO, Daily, # 100 tab, 0 Refill(s) [facility] Vitamin B12 Methylcobalamin 5000 mcg sublingual tablet [...] Yes 2 puff, INHALATION, Q6H, 0 Refill(s) [facility] Albuterol 0.83 MG/ML Inhalant Solution [...] = 1 tab, PO, Daily, 0 Refill(s) Memoria l [facility] hydromorphone 8 mg oral tablet 2020-04-07 18:43:00 [...] = 0.5 tab, PO, BID, 0 Refill(s) [facility] metoprolol tartrate 25 mg oral tablet 2020-04-07 18:43:00 Y es 12.5 mg = 0.5 tab, PO, BID, 0 Refill(s) [facility]le[facility] iaehsan [facility] Pramipexole dihydrochloride 0.25 MG Oral Tablet [Mirapex] [...] = 1 ml, IM, q2wk, 0 Refill(s) Geoff Doyle Insulin regular 2020-04-07 15:25:00 No Notes: (Same as: Humulin R) Roll in palms of hands gently; Do not shake vigorously. WASTE: F/P - Black; E - Municipal Trash Bin Stable for 31 days at room temperature Expires in days from Date [facility] sugammadex ([facility]) 2020-04-07 15:24:00 No Route: IV, Drug form: SOLN, ONCE, Stop date: 04/07/20 10:24:00 CDT [facility] norepinephrine ([facility]) 2020-04-07 15:18:00 No Route: IV, Drug form: INJ, ONCE, Stop date: 04/07/20 10:18:00 CDT [facility] sugammadex 2020-04-07 14:54:00 No Notes: (S abelardo as: Bridion) [facility] albuterol ([facility]) 2020-04-07 14:48:00 No Route: INHALATION, Drug form: AERO/A, ONCE, Stop date: 04/07/20 9:48:00 CDT [facility] ceFAZolin ([facility]) 2020-04-07 14:38:00 No Route: IV, Drug form: INJ, ONCE, Stop date: 04/07/20 9:38:[address] [facility] fenta[facility]L ([facility] 2020-04-07 14:33:00 No Route: IV, Drug form: INJ, ONCE, Stop date: 04/07/20 9:33:00 [facility] 2020-04-07 14:33:00 No Route: IV, Drug form: INJ, ONCE, Stop date: 04/07/20 9:33:00 CDT [facility] Hydralazine 2020-04-07 14:31:00 No Notes: (Same as: Apresoline) Push over 5 minutes [facility] esmolol 2020-04-07 14:31:00 No Notes: (Same as: Brevibloc) [facility] Labetalol 2020-04-07 14:31:00 No 10 mg, 2 mL, Route: IVP, Drug form: INJ, Q5Min, Dosing Weight 99.2, kg, PRN Elevated BP, Start date: 04/07/20 9:31:00 CDT, Duration: 5 doses or times, Stop date: 04/08/20 0:00:00 CDT, 0 [facility] Acetaminophen 2020-04-07 14:31:00 No Notes: Max acetaminophen 4000 mg/day (4 gm/day). (Same as: Tylenol Extra Strength) [facility] Oxycodone Hydrochloride 5 MG Oral Tablet 2020-04-07 14:31:00 No Notes: (Same as: Roxicodone) [facility] Hydromorphone 2020-04-07 14:31:00 No Notes: Same as Dilaudid [facility] Flumazenil 2020-04-07 14:31:00 No Notes: (S abelardo as: Romazicon) [facility] Naloxone 2020-04-07 14:31:00 No Notes: Same as Narcan [facility] Ondansetron 2020-04-07 14:31:00 No Notes: (Same as: Zofran) MEDICATION WASTE Product Size: 4 mg Product Wasted: ___ mg [facility] lidocaine (ANES) 2020-04-07 14:28:00 No Route: IV, Drug form: INJ, ONCE, Stop date: 04/07/20 9:28:00 CDT [facility] propofol ([facility]) 2020-04-07 14:28:00 No Route: IV, Drug form: INJ, ONCE, Stop date: 04/07/20 9:28:00 CDT [facility] rocuronium ([facility]) 2020-04-07 14:28:00 No Route: IV, Drug form: INJ, ONCE, Stop date: 04/07/20 9:28:00 CDT [facility] phenylephrine ([facility]) 2020-04-07 14:12:00 No Route: IV, Drug form: INJ, ONCE, Stop date: 04/07/20 9:12:00 CDT [facility] sugammadex 2020-04-07 14:06:00 No Notes: (S abelardo as: Bridion) [facility] Saline Flush 0.9% 2020-04-07 14:00:00 No Notes: Same as: BD Posiflush Sterile [facility] Clobetasol Propionate 0.0005 MG/MG Topical Ointment 04-07 14:00:00 No Notes: (clobetasol propionat e 0.05% 15 gm top OIN) (Same As: Temovate) [facility] Vitamin D3 2020-04-07 14:00:00 No Notes: Sa me as : Vitamin D3 [facility] 24 HR mirabegron 50 MG Extended Release Tablet [Myrbetriq] 2020-04-07 14:00:00 No Notes: (Same as: Myrbetriq ER) Non-Formulary [facility] Dulcolax Laxative 2020-04-07 13:51:00 No Notes: (Same As: Dulcolax, Bisco-Lax) [facility] Clonazepam 2020-04-07 13:51:00 No 0.5 mg, 1 tab, Route: PO, Drug form: TAB, BID, Dosing Weight 99.2, kg, PRN Anxiety, Start date: 04/07/20 8:51:00 CDT, Duration: 30 day, Stop date: 05/07/20 8:50:00 CDT, 0 [facility] Metolazone 5 MG Oral Tablet 2020-04-07 13:51:00 No Notes: (Same as: Zaroxolyn) [facility] Acetaminophen 2020-04-07 13:11:00 No Notes: Do not exceed 4 gm/day. (Same as: Tylenol) [facility] Acetaminophen 325 MG / Hydrocodone Bitartrate 10 MG Oral Tab let 2020-04-07 13:11:00 No Notes: Do not exceed 4gm/day of acetaminophen. (Same as: [place] 325/10) [facility] Hydromorphone 2020-04-07 13:11:00 No Notes: Same as Dilaudid [facility] Ondansetron 2020-04-07 13:11:00 No Notes: (Same as: Zofran) MEDICATION WASTE Product Size: 4 mg Product Wasted: ___ mg [facility] Saline Flush 0.9% 2020-04-07 13:11:00 No Notes: Same as: BD Posiflush Sterile [facility] Methadone 2020-04-07 12:42:00 No Notes: (Sa me as: Dolophine) [facility] Lactated Ringers Injection IV (ANES) 1000 mL 2020-04-07 12:34:00 No Route: IV, Total Volume: 1,000, Start date: 04/07/20 7:34:00 CDT, Stop date: 04/07/20 8:34:00 CDT [facility]k 24 HR mirabegron 50 MG Extended Release Tablet [Myrbetriq] 2020-04-04 19:26:00 Yes 50 mg = 1 tab, PO, Daily, # 90 tab, 0 Refill(s), [id number] see BecerrilBrian 2020-04-03 18:38:00 No 10 mg, PO, Q PM, 0 Refill(s) [facility] V[facility]k gabapentin 300 MG Oral Capsule 2020-04-03 18:33:00 No 300 mg = 1 cap, PO, QPM, # 90 cap, 1 Refill(s) Jimmy Doyle clonazePAM 0.5 mg oral tablet 2020-04-03 18:33:00 No 0.5 mg = 1 tab, PO, BID, PRN anxiety, # 60 tab, 0 Refill(s) [facility] methenamine hippurate 2020-04-03 18:10:00 No 25 gm, PO, QAM & PM, 0 Refill(s) [facility] tamsulosin 0.4 mg oral capsule 2020-04-03 18:10:00 No 0.4 mg = 1 cap, PO, QAM & PM, # 90 cap, 0 Refill(s) [facility] baclofen 10 mg oral tablet 2020-04-03 18:10:00 No 10 mg = 1 tab, PO, QAM & PM, # 270 tab, 0 Refill(s) Maricruz Feng Glucotrol 2019-11-11 16:00:00 No 2.5 mg, 0.5 tab, Route: PO, Drug form: TAB, Before Breakfast, Start date: 11/11/19 10:00:00 BLOCKER HAND, Duration: 30 day, Stop date: 12/11/19 7:30:00 BLOCKER HAND, 0 Geoff Doyle 200 ACTUAT Albuterol 0.09 MG/ACTUAT Metered Dose Inhaler [Pr oAir HFA] 2019-11-11 15:22:00 Yes 180 microgram = 2 puff, INHALATION, Daily, 0 Refill(s) Geoff Doyle Oxygen 2019-11-11 15:22:00 Yes Oxygen, 1 btl, MISC, Bedtime, Refill(s) 0 [facility] ProAir HFA 2019-11-11 15:22:00 Yes ProAir HFA, 1 - 2 puffs, PO, Daily, Refill(s) 0 [facility] Acetaminophen 300 MG / Codeine Phosphate 30 MG Oral Tablet 2019-11-11 15:22:00 Yes 1 tab, PO, Q6H, PRN Pain Score 7-10, # 30 tab, 0 Refill(s) [facility] 200 ACTUAT Albuterol 0.09 MG/ACTUAT Metered Dose Inhaler [Pr oAir HFA] 2019-11-11 15:00:00 No 180 microgram, 2 puff, Route: INHALATION, Drug Form: AERO/A, Dosing Weight 94.091, kg, Daily, Start date: 11/11/19 9:00:00 BLOCKER HAND, Duration: 30 day, Stop date: 12/10/19 9:00:00 BLOCKER HAND [facility] ProAir HFA 2019-11-11 15:00:00 No ProAir HFA, 1 - 2 puffs, Route: PO, Daily, 11/11/19 9:00:00 BLOCKER HAND, Duration: 30 day, Stop date: 12/10/19 9:00:00 BLOCKER HAND [facility] Allopurinol 2019-11-11 15:00:00 No Notes: ( Same as: Zyloprim) [facility] Aspirin 81 MG Enteric Coated Tablet 2019-11-11 15:00:00 No Notes: Do not crush or chew. (Same As: Ecotrin) [facility] Bumetanide 2019-11-11 15:00:00 No Notes: (S abelardo As: Bumex) [facility] Vitamin D3 1000 intl units oral tablet 2019-11-11 15:00:00 No Notes: Same as : Vitamin D3 [facility] Clobetasol Propionate 0.0005 MG/MG Topical Ointment 11-11 15:00:00 No Notes: (clobetasol propionate 0.05% 15 gm top OIN) (Same As: Temovate) [facility] clopidogrel 2019-11-11 15:00:00 No Notes: ( Same As: Plavix) [facility] Colchicine 2019-11-11 15:00:00 No 0.6 mg, 1 tab, Route: PO, Drug form: TAB, Daily, Dosing Weight 94.091, kg, Start date: 11/11/19 9:00:00 BLOCKER HAND, Duration: 30 day, Stop date: 12/10/19 9:00:00 BLOCKER HAND, 0 [facility] ferrous sulfate 2019-11-11 15:00:00 No Notes: Give with food. "Do Not Crush" [facility] Metolazone 5 MG Oral Tablet 2019-11-11 15:00:00 No Notes: (Same as: Zaroxolyn) [facility] 24 HR mirabegron 50 MG Extended Release Tablet [Myrbetriq] 2019-11-11 15:00:00 No 50 mg, 1 t ab, Route: PO, Drug form: ERTAB, Daily, Dosing Weight 94.091, kg, Start date: 11/11/19 9:00:00 BLOCKER HAND, Duration: 30 day, Stop date: 12/10/19 9:00:00 BLOCKER HAND [facility] Prednisone 2019-11-11 15:00:00 No Notes: (Same as: PredniSONE) Take with food. [facility] Xarelto 2019-11-11 15:00:00 No Notes: (Same as: Xarelto) Administer with food [facility] Sertraline 2019-11-11 15:00:00 No Notes: (S abelardo as: Zoloft) [facility] Budesonide 0.25 MG/ML Inhalant Solution 2019-11-11 14:00:00 No Notes: (Same As: Pulmicort) [facility] glimepiride 2019-11-11 14:00:00 No 1 mg, 1 tab, Route: PO, Drug form: TAB, Breakfast, Dosing Weight 94.091, kg, Start date: 11/11/19 8:00:00 BLOCKER HAND, Duration: 30 day, Stop date: 12/10/19 8:00:00 BLOCKER HAND [facility] Thyroxine 2019-11-11 12:30:00 No 100 microgram, 1 tab, Route: PO, Drug form: TAB, Q630AM, Dosing Weight 94.091, kg, Start date: 11/11/19 6:30:00 BLOCKER HAND, Duration: 30 day, Stop date: 12/10/19 6:30:00 BLOCKER HAND, 0 [facility] Triiodothyronine 2019-11-11 12:30:00 No Notes: (Same as: Cytomel) [facility] Dilaudid 2019-11-11 10:46:00 No Notes: Same as Dilaudid [facility] Fentanyl 2019-11-11 10:15:00 No 25 microgram, Route: IV, ONCE, Dosing Weight 94.091, kg, Start date: 11/11/19 4:15:00 BLOCKER HAND, Stop date: 11/11/19 4:15:00 BLOCKER HAND [facility] Saline Flush 0.9% 2019-11-11 03:00:00 No Notes: (Same as: BD Posiflush) [facility] Oxygen 2019-11-11 03:00:00 No Oxygen, 1 btl, Route: MISC, Bedtime, 11/10/19 21:00:00 BLOCKER HAND, Duration: 30 day, Stop date: 12/09/19 21:00:00 BLOCKER HAND [facility] Folic Acid 2019-11-11 03:00:00 No 0.4 mg, 1 tab, Route: PO, Drug form: TAB, BID, Dosing Weight 94.091, kg, Start date: 11/10/19 21:00:00 BLOCKER HAND, Duration: 30 day, Stop date: 12/10/19 9:00:00 BLOCKER HAND, 0 [facility] Pramipexole 2019-11-11 03:00:00 No 0.25 mg, 2 tab, Route: PO, Drug form: TAB, Bedtime, Dosing Weight 94.091, kg, Start date: 11/10/19 21:00:00 BLOCKER HAND, Duration: 30 day, Stop date: 12/09/19 21:00:00 BLOCKER HAND [facility] ropinirole 2019-11-11 03:00:00 No 0.5 mg, Route: PO, Drug form: TAB, Bedtime, Dosing Weight 94.091, kg, Start date: 11/10/19 21:00:00 BLOCKER HAND, Duration: 30 day, Stop date: 12/09/19 21:00:00 BLOCKER HAND [facility] Albuterol 0.83 MG/ML Inhalant Solution 2019-11-11 02:00:00 No Notes: SEE RT DOCUMENTATION (Same as: Proventil) [facility] latanoprost 2019-11-10 23:00:00 No Notes: Keep refrigerated. (Same as:Xalatan) Opened bottle may be stored at room temperature for 6 weeks [facility] V[facility]k 24 HR Metoprolol Tartrate 25 MG Extended Release Tablet [Top rol] 2019-11-10 23:00:00 No Notes: (Sa me as: Toprol XL) Do Not Crush 12.5 mg = 1/2 x 25 mg TAB [facility] Potassium Chloride 2019-11-10 23:00:00 No Notes: (Same as: K-Dur 20) "Do Not Crush" Give with food and full glass of water For patients unable to swallow tablet, dissolve in one half glass of water. Allow about 2 minutes for the tablets to disintegrate. Stir before giving to prepare slurry and administer. Please exclude Patient s with feeding tube less than 14 [place] (Dobhoff, J-tube etc) and pediatric and patients. [facility] Vivek Alprazolam 0.5 MG Oral Tablet 2019-11-10 21:14:00 No Notes: With food or milk (Same as: Xanax) [facility] Laxative 2019-11-10 21:14:00 No Notes: (Same As: Dulcolax, Bisco-Lax) [facility] acetaminophen-codeine #3 2019-11-10 21:13:00 No Notes: Do not exceed 4gm/day of acetaminophen. (Same as: Tylenol with Codeine # 3) [facility] Saline Flush 0.9% 2019-11-10 21:13:00 No Notes: (Same as: BD Posiflush) [facility] protamine (SURENDRAS) 2019-11-10 21:12:00 No Route: IV, Drug form: INJ, ONCE, Stop date: 11/10/19 15:12:00 BLOCKER HAND jeannette Doyle glycopyrrolate (SURENDRAS) 2019-11-10 21:12:00 No Route: IV, Drug form: INJ, ONCE, Stop date: 11/10/19 15:12:00 BLOCKER HAND [facility] neostigmine (SURENDRAS) 2019-11-10 21:12:00 No Route: IV, Drug form: INJ, ONCE, Stop date: 11/10/19 15:12:00 BLOCKER HAND [facility] norepinephrine (SURENDRAS) 2019-11-10 20:39:00 No Route: IV, Drug form: INJ, ONCE, Stop date: 11/10/19 14:39:00 BLOCKER HAND [facility] heparin ([facility]) 2019-11-10 20:39:00 No Route: IV, Drug form: INJ, ONCE, Stop date: 11/10/19 14:39:00 BLOCKER HAND [facility] [place] propofol ([facility]) 2019-11-10 20:34:00 No Route: IV, Drug form: INJ, ONCE, Stop date: 11/10/19 14:34:00 BLOCK[facility] HAND [facility] [place] ceFAZolin ([facility]) 2019-11-10 20:34:00 No Route: IV, Drug form: INJ, ONCE, Stop date: 11/10/19 14:34:00 [facility] HAND [facility] [place] lidocaine ([facility]) 2019-11-10 20:18:00 No Route: IV, Drug form: INJ, ONCE, Stop date: 11/10/19 14:18:00 [facility] HAND [facility] 2019-11-10 20:18:00 No Route: IV, Drug form: INJ, ONCE, Stop date: 11/10/19 14:18:00 BLOCKER HAND [facility] [place] fentaNYL ([facility]) 2019-11-10 20:18:00 No Route: IV, Drug form: INJ, ONCE, Stop date: 11/10/19 14:18:00 [facility] HAND [facility] Fentanyl 2019-11-10 19:56:00 No Notes: (Same as: Sublimaze) Preservative free. [facility] Hydromorphone 2019-11-10 19:56:00 No Notes: Same as Dilaudid [facility] Flumazenil 2019-11-10 19:56:00 No Notes: (S abelardo as: Romazicon) [facility] Naloxone 2019-11-10 19:56:00 No Notes: Same as Narcan [facility] Diphenhydramine 2019-11-10 19:56:00 No Notes: (Same as: Benadryl) [facility] Ondansetron 2019-11-10 19:56:00 No Notes: (Same as: Zofran) MEDICATION WASTE Product Size: 4 mg Product Wasted: ___ mg [facility] norepinephrine (ANES) 10 microgram 2019-11-10 19:51:00 No Route: IV, Drug form: INJ, Start date: 11/10/19 13:51:00 BLOCKER HAND, Stop date: 11/10/19 14:51:00 BLOCKER HAND Geoff Silverann Sodium Chloride 0.9% IV (ANES) 1000 mL 2019-11-10 19:29:00 No Route: IV, Total Volume: 1,000, Start date: 11/10/19 13:29:00 BLOCKER HAND, Stop date: 11/10/19 14:29:00 BLOCKER HAND [facility] methenamine hippurate 1 g oral tablet 2019-11-10 17:17:00 Y es 1 gm = 1 tab, PO, BID, 0 Refill(s) Geoff Raimundo robert Metolazone 5 MG Oral Tablet 2019-11-10 17:17:00 Yes 5 mg = 1 tab, PO, Daily, 0 Refill(s) Geoff Doyle predniSONE 10 mg oral tablet 2019-11-10 17:17:00 Yes 10 mg = 1 tab, PO, Daily, 3 Refill(s) Geoff Doyle ferrous sulfate 325 mg oral enteric coated [...] Total Volume: 1,000, Start date: 11/10/19 10:52:00 BLOCKER HAND, Duration: 30 day, Stop date: 12/10/19 10:51:00 BLOCKER HAND, 2.16, m2, 0 [facility] Bacitracin 0.5 UNT/MG / Polymyxin B 10 UNT/MG Topical Ointme nt 2019-10-17 04:39:00 Yes 1 appl, TOP, QID, # 30 gm, 0 Refill(s) Geoff Doyle Albuterol 0.83 MG/ML Inhalant Solution 2019-10-17 02:10:00 No Notes: SEE RT DOCUMENTATION (Same as: Proventil) Geoff [facility] Bacitracin 0.5 UNT/MG Topical Ointment 2019-10-17 00:58:00 No 1 appl, Route: TOP, ONCE, Drug form: OINT, Start date: 10/16/19 18:58:00 BLOCKER HAND, Stop date: 10/16/19 18:58:00 BLOCKER HAND, 0 Geoff Doyle 24 HR mirabegron 50 MG Extended Release Tablet [Myrbetriq] 2019-06-02 16:06:04 Yes 50 mg = 1 tab, PO, Daily, # 90 tab, 1 Refill(s), Pharmacy: [id number] Geoff cui Midodrine Hcl Midodrine Hcl 2019-05-28 08:27:00 2019-06-16 00:00:00 No 10 Tid@,,16 [facility] Levofloxacin 500 MG Oral Tablet [Levaquin] 2019-05-18 18:23:00 Yes 500 mg = 1 tab, PO, Q24H, X 7 day, # 7 tab, 0 Refill(s), Pharmacy: [facility] [id number] Geoff Doyle albuterol (PROAIR HFA,PROVENTIL HFA,VENTOLIN HFA) 90 mcg/act [...] 300 mg by mouth daily. Juan Pablo Bautista odyana alclomethasone (ACLOVATE) 0.05 % cream 2019-05-11 13:46:42 [...] 10 MG tablet 2019-05-11 13:46:42 Yes 10mg [id number] Take 10 mg by mouth 3 (three) [...] mg by mouth every evening. Juan Pablo streeter colchicine 0.6 mg tablet 2019-05-11 13:46:42 Yes [...] B-12, (VITAMIN B-12 ORAL) 2019-05-11 13:46:42 Yes [id number] Q7D Take 10,000 mcg by mouth once a week. Juan Pablo Colbert cholecalciferol, vitamin D3, (VITAMIN D3) 2,000 unit capsule capsule 2019-05-11 13:46:42 Yes [id number] QD Take 6,000 U nits by mouth every evening. Juan Pablo Colbert psyllium husk (WAL-MUCIL FIBER ORAL) 2019-05-11 13:46:42 Ye s QD Take by mouth every morning. Juan Pablo butler Tamsulosin Hcl (Flomax*) 0.4 Mg CAP Tamsulosin Hcl (Flomax*) 0.4 Mg CAP 2019-05-04 05:40:00 2019-12-24 00:00:00 No .4 [facility] Bumetanide Bumetanide 2019-05-04 05:40:00 2019-06-16 00:00:00 No 4 Twice A Day [facility] Lidocaine Patch Lidocaine Patch 2019-05-04 05:40:00 2019-06-16 00:00:00 No 1 Q24h [facility] Metolazone Metolazone 2019-05-04 05:40:00 2019-06-16 00:00:00 No 5 Daily [facility] allopurinol 300 mg oral tablet 2019-04-19 21:01:00 Yes 300 mg = 1 tab, PO, Daily, # 90 tab, 1 Refill(s) Me wanda Doyle methenamine hippurate 2019-04-19 21:01:00 Yes 1 gm, PO, Daily, 0 Refill(s) Geoff Doyle Dulcolax Laxative 2019-04-19 21:01:00 Yes = 1 supp, NE, Daily, PRN constipation, # 5 supp, 0 Refill(s) Jimmy rial Vivek Colchicine 2019-04-19 21:01:00 Yes 0 .6 mg, PO, Daily, 0 Refill(s) Geoff Doyle Sucralfate (Carafate) 1 Gm TABLET Sucralfate (Carafate) 1 Gm TABLET 2019-02-15 06:50:00 2019-08-05 00:00:00 No 1 Before Meals [facility] Fosfomycin 33.3 MG/ML Oral Suspension [Monurol] 2018-12-03 14:58 :00 Yes = 1 Pack, PO, ONCE, # 3 gm, 0 Refill(s), Pharmacy: [facility] [id number] Geoff Doyle Hydrochlorothiazide 50 MG / Spironolactone [...] [Hyper-Lamine] 2018-11-30 20:00:00 Yes PRN, 0 Refill(s) Geoff Doyle Oxygen 2018-11-30 20:00:00 Yes 1 btl, MISC, Bedtime, # 1 btl, 0 Refill(s) Geoff Doyle pantoprazole 40 mg oral enteric coated tablet 2018-11-30 20:00:0 0 Yes 40 mg = 1 tab, PO, Daily, # 30 tab, 0 Refill(s) Geoff Doyle Potassium Chloride 2018-11-30 20:00:00 Yes 20 mEq, BID, 0 Refill(s) Geoff Doyle pramipexole 0.125 mg oral tablet 2018-11-30 20:00:00 Yes 0.125 mg = 1 tab, PO, Bedtime, # 30 tab, 1 Refill(s) Geoff Doyle 200 ACTUAT Albuterol 0.09 MG/ACTUAT Metered Dose Inhaler [Pr oAir HFA] 2018-11-30 20:00:00 Yes 2 puff, INHALATION , Daily, 0 Refill(s) Geoff Doyle non-formulary 2018-11-30 20:00:00 Yes RAPATHA INJECTION 140MG Q2WEEK, Refill(s) 0 Geoff Doyle rOPINIRole 0.5 mg oral tablet 2018-11-30 20:00:00 Yes 0.5 mg = 1 tab, PO, Bedtime, # 30 tab, 1 Refill(s) Geoff Doyle sertraline 50 mg oral tablet 2018-11-30 20:00:00 Yes 50 mg = 1 tab, PO, Daily, # 30 tab, 0 Refill(s) Zena Doyle rivaroxaban 15 MG Oral Tablet [Xarelto] 2018-11-30 20:00:00 Yes 15 mg = 1 tab, PO, Daily, # 90 tab, 3 Refill(s) Geoff Doyle Aspirin 81 MG Enteric Coated Tablet 2018-11-30 20:00:00 Yes 81 mg = 1 tab, PO, Daily, # 90 tab, 3 Refill(s) [facility] Folic Acid 2018-11-30 20:00:00 Yes 400 MCG, BID, 0 Refill(s) [facility] Mucus Relief DM 2018-11-30 20:00:00 Yes PO, BID, 0 Refill(s) [facility] Vitamin B12 Methylcobalamin 2018-11-30 20:00:00 Yes SL, qWeek, 0 Refill(s) [facility] Vitamin D3 2000 intl units oral capsule 2018-11-30 20:00:00 Yes 2,000 IntlUnit = 1 cap, PO, Daily, # 100 cap, 3 Refill(s) [facility] 24 HR mirabegron 50 MG Extended Release Tablet [Myrbetriq] 2018-11-05 15:12:29 Yes See Instru ctions, TAKE 1 TABLET BY MOUTH EVERY DAY, # 90 tab, 0 Refill(s), Pharmacy: [facility], please have patient call for appt prior to next refill [facility] nn Azithromycin (Zithromax) 500 Mg TABLET Azithromycin (Zithrom ax) 500 Mg TABLET 2018-09-16 09:28:00 2018-11-05 00:00:00 No 500 Daily [facility] Sulfamethoxazole/Trimethoprim (Bactrim Ds Tablet) 1 Ea ch TABLET Sulfamethoxazole/Trimethoprim (Bactrim Ds Tablet) 1 Each TABLET 2018-09-16 09:27:00 2018-11-05 00:00:00 No 1 Twice A Day [facility] Metoprolol Tartrate (Lopressor) 25 Mg TAB Metoprolol T artrate (Lopressor) 25 Mg TAB 2017-06-11 11:30:00 2019-12-24 00:00:00 No 25 Ever y 12 Hours [facility] Furosemide Furosemide 2017-06-11 11:30:00 2019-01-09 00:00:00 No 80 Bid@,18 [facility] Azithromycin (Z-Asad) 250 Mg TABLET Azithromycin (Z-Asad) 250 Mg TABLET 2017-06-11 11:30:00 2018-09-13 00:00:00 No 500 Daily [facility] Docusate Sodium (Colace) 100 Mg CAPSULE Docusate Sodium (Col rhiannon) 100 Mg CAPSULE 2017-06-11 11:30:00 2018-09-13 00:00:00 No 100 Three Times A Day [facility] Polyethylene Glycol 3350 (Miralax) 17 Gm POWD.PACK Dominic yethylene Glycol 3350 (Miralax) 17 Gm POWD.PACK 2017-06-11 11:30:00 2018-09-13 00:00:00 No 17 Twice A Day [facility] Prednisone Prednisone 2017-06-11 11:30:00 2018-09-13 00:00:00 No 40 Daily [facility] Warfarin Sodium (Coumadin) 5 Mg TABLET Warfarin Sodium (Coum esther) 5 Mg TABLET 2017-06-11 11:30:00 2018-09-13 00:00:00 No 5 Daily At 1700 [facility] Albuterol Sulfate Albuterol Sulfate Yes .83 Twic e A Day [facility] Albuterol Sulfate (Proair Hfa Inhaler*) 8.5 Gm INH Alb uterol Sulfate (Proair Hfa Inhaler*) 8.5 Gm INH Yes 2 Daily [facility] Allopurinol Allopurinol Yes 300 Bedtime [facility] Alprazolam Alprazolam Yes .5 As Needed [facility] Aspirin (Aspir 81) 81 Mg TABLET. Aspirin (Aspir 81) 81 Mg TABLET. Yes 1 Daily [facility] Bisacodyl (Dulcolax) 5 Mg TABLET. Bisacodyl (Dulcolax) 5 Mg TABLET. Yes 2 Daily [facility] Budesonide Budesonide Yes 2 Twice A Day [facility] Cholecalciferol (Vitamin D3) (Vitamin D3) 5,000 Unit T AB.RAPDIS Cholecalciferol (Vitamin D3) (Vitamin D3) 5,000 Unit TAB.RAPDIS Yes 10 000 Daily [facility] Clopidogrel Bisulfate (Clopidogrel) 75 Mg TABLET Clopi dogrel Bisulfate (Clopidogrel) 75 Mg TABLET Yes 75 Daily [facility] Colchicine (Colcrys) 0.6 Mg TABLET Colchicine (Colcrys) 0.6 Mg TABLET Yes .6 Daily as needed for Mild Pain (1-3) Or Fever>10 0.8 [facility] Cyanocobalamin (Vitamin B-12) (Vitamin B-12) 1,000 Mcg TAB.SUBL Cyanocobalamin (Vitamin B-12) (Vitamin B-12) 1,000 Mcg TAB.SUBL Yes 1 000 .weekly [facility] Folic Acid Folic Acid Yes 400 Twice A Day [facility] Gabapentin Gabapentin Yes 300 Twice A Day [facility] Hydromorphone Hcl Hydromorphone Hcl Yes 8 Daily as needed for Severe Pain (7-10) [facility] Hydromorphone/Bupiv/0.9NACL/Pf (Hydromor -Bupiva 10 Mcg-0.0625%) 100 Ml PUMP.RESVR Hydromorphone/Bupiv/0.9NACL/Pf (Hydromor -Bupiva 10 Mcg-0.0625%) 100 Ml PUMP.RESVR Yes 1 Daily [facility] Latanoprost Latanoprost Yes 1 Bedtime [facility] Levothyroxine Sodium Levothyroxine Sodium Yes 100 Daily [facility] Lidocaine (Lidocaine Pain Relief) 1 Each ADH..PATCH Li docaine (Lidocaine Pain Relief) 1 Each ADH..PATCH Yes 6 Every 12 Yahir rs as needed for Prn [facility] Liothyronine Sodium Liothyronine Sodium Yes 5 Every Morning [facility] Methenamine Hippurate Methenamine Hippurate Yes .5 Twice A Day [facility] Metoprolol Tartrate Metoprolol Tartrate Yes 12.5 Twice A Day [facility] Mirabegron (Myrbetriq) 50 Mg TAB.ER.24H Mirabegron (Myrbetri q) 50 Mg TAB.ER.24H Yes 50 Daily [facility] Potassium Chloride Potassium Chloride Yes 20 Tw ice A Day [facility] Psyllium Husk (Wal-Mucil) 0.52 Gm CAPSULE Psyllium Hus k (Wal-Mucil) 0.52 Gm CAPSULE Yes 8 Daily [facility] Rivaroxaban (Xarelto) 15 Mg TABLET Rivaroxaban (Xarelto) 15 Mg TABLET Yes 15 Daily [facility] Ropinirole Hcl Ropinirole Hcl Yes .5 Twice A Da y [facility] Sertraline Hcl Sertraline Hcl Yes 50 Bedtime [facility] Sodium Chloride For Inhalation (Hyper-Lamine) 4 Ml VIAL.N EB Sodium Chloride For Inhalation (Hyper-Lamine) 4 Ml VIAL.NEB Yes 7 A s Needed [facility] Tamsulosin Hcl (Flomax*) 0.4 Mg CAP Tamsulosin Hcl (Flomax*) 0.4 Mg C AP Yes .4 Twice A Day [facility] Testosterone Cypionate Testosterone Cypionate Yes 200 [facility] Alcomethasone Dipror Alcomethasone Dipror 2020-06-20 00:00:00 No .05 Daily [facility] Baclofen Baclofen 2020-06-20 00:00:00 No Twice A Day [facility] Bumetanide Bumetanide 2020-06-20 00:00:00 No 1 Twi ce A Day [facility] Clobetasol Propionate Clobetasol Propionate 2020-06-20 00:00:00 No 1 Daily [facility] Clonazepam Clonazepam 2020-06-20 00:00:00 No .25 Bedtime as needed for Sleep [facility] Guaifenesin (Mucus Relief) 400 Mg TABLET Guaifenesin ( Mucus Relief) 400 Mg TABLET 2020-06-20 00:00:00 No 1 Twic e A Day as needed for Nasal Congestion [facility] Keto/Cyclo/Lido Keto/Cyclo/Lido 2020-06-20 00:00:00 No Four Times Daily as needed for Pain [facility] Metolazone Metolazone 2020-06-20 00:00:00 No 5 Bed time [facility] Prednisone Prednisone 2020-06-20 00:00:00 No 20 Twi ce A Day [facility] Cholecalciferol (Vitamin D3) (Vitamin D3) 1,000 Unit C APSULE Cholecalciferol (Vitamin D3) (Vitamin D3) 1,000 Unit CAPSULE 2019-12-24 00:00:00 No 1000 Daily [facility] Hypersal 7% Hypersal 7% 2019-12-24 00:00:00 No 1 As Needed as needed for Shortness Of [facility] Levofloxacin (Levaquin) 500 Mg TABLET Levofloxacin (Levaquin) 50 0 Mg TABLET 2019-12-24 00:00:00 No 750 Daily [facility] Pramipexole Di-Hcl (Pramipexole Dihydrochloride) 0.25 Mg TABLET Pramipexole Di- Hcl (Pramipexole Dihydrochloride) 0.25 Mg TABLET 2019-12-24 00:00:00 No .25 Bedtime [facility] Sucralfate (Carafate) 1 Gm/10 Ml ORAL.SUSP Sucralfate (Carafate) 1 Gm/10 Ml ORAL.SUSP 2019-12-24 00:00:00 No 1 Daily [facility] Bumetanide Bumetanide 2019-08-12 00:00:00 No 2 Twi ce A Day [facility] Aclovate Aclovate 2019-08-05 00:00:00 No 1 Daily [facility] Alcometasone Alcometasone 2019-08-05 00:00:00 No .05 Daily [facility] Cosentyx Cosentyx 2019-08-05 00:00:00 No 150 .monthl y [facility] Potassium Chloride Potassium Chloride 2019-06-16 00:00:00 No 20 Twice A Day [facility] Baclofen Baclofen 2019-05-28 00:00:00 No 10 Three T imes A Day [facility] Bumetanide Bumetanide 2019-05-04 00:00:00 No 2 Twi ce A Day [facility] Carisoprodol (Soma) 350 Mg TABLET Carisoprodol (Soma) 350 Mg TAB LET 2019-04-23 00:00:00 No 350 Daily as needed for Pain [facility] Cholecalciferol (Vitamin D3) (Vitamin D3) 2,000 Unit C APSULE Cholecalciferol (Vitamin D3) (Vitamin D3) 2,000 Unit CAPSULE 2019-04-23 00:00:00 No 6000 Bedtime [facility] Cosentyx Cosentyx 2019-04-23 00:00:00 No 150 [facility] Folic Acid Folic Acid 2019-04-23 00:00:00 No 400 Twi ce A Day [facility] Guaifenesin (Mucus Relief) 400 Mg TABLET Guaifenesin ( Mucus Relief) 400 Mg TABLET 2019-04-23 00:00:00 No 400 Twice A Day [facility] Hydromorphone Hcl Hydromorphone Hcl 2019-04-23 00:00:00 No 8 As Needed as needed for Prn [facility] Metolazone Metolazone 2019-04-23 00:00:00 No 5 [facility] Pantoprazole Sodium (Protonix) 40 Mg TABLET. Pantopr azole Sodium (Protonix) 40 Mg TABLET. 2019-04-23 00:00:00 No 40 Bedtime [facility] Sodium Chloride For Inhalation (Hyper-Lamine) 4 Ml VIAL.N EB Sodium Chloride For Inhalation (Hyper-Lamine) 4 Ml VIAL.NEB 2019-04-23 00:00:00 No 7 Daily as needed for Nasal Congestion [facility] Spironolact/Hydrochlorothiazid (Aldactazide 50-50 Tabl et) 1 Each TABLET Spironolact/Hydrochlorothiazid (Aldactazide 50-50 Tablet) 1 Each TABLET 2019-04-23 00:00:00 No 1 Daily [facility] Vitamin B12 Vitamin B12 2019-04-23 00:00:00 No 19196 Use As Directed [facility] Clindamycin Hcl Clindamycin Hcl 2019-02-15 00:00:00 No 300 Three Times A Day [facility] Potassium Chloride (K-Dur) 20 Meq TAB.ER.PRT Potassium Chloride (K-Dur) 20 Meq TAB.ER.PRT 2019-01-09 00:00:00 No 20 Every 12 Hour s [facility] Prednisone Prednisone 2018-12-30 00:00:00 No 30 Laquita ly [facility] Prednisone Prednisone 2018-12-30 00:00:00 No 20 Laquita ly [facility] Prednisone Prednisone 2018-12-30 00:00:00 No 10 Laquita ly [facility] Albuterol Sulfate (Proair Hfa Inhaler*) 8.5 Gm INH Alb uterol Sulfate (Proair Hfa Inhaler*) 8.5 Gm INH 2018-12-11 00:00:00 No 3 [facility] Alclometasone Dipropionate Alclometasone Dipropionate 2018 00:00:00 No 1 Daily [facility] Albuterol Sulfate (Proair Hfa Inhaler*) 8.5 Gm INH Alb uterol Sulfate (Proair Hfa Inhaler*) 8.5 Gm INH 2018-12-07 00:00:00 No 2 Da ekaterina [facility] Clobetasol Propionate Clobetasol Propionate 2018-12-07 00:00:00 No 1 Daily [facility] Mirabegron (Myrbetriq) 50 Mg TAB.ER.24H Mirabegron (Myrbetri q) 50 Mg TAB.ER.24H 2018-12-07 00:00:00 No 50 Every Morning [facility] Rapatha Injection Rapatha Injection 2018-12-07 00:00:00 No 140 Use As Directed [facility] Spironolactone (Aldactone) 50 Mg TABLET Spironolactone (Corazon ctone) 50 Mg TABLET 2018-12-07 00:00:00 No 50 As Needed [facility] Folic Acid Folic Acid 2018-11-05 00:00:00 No 1 Twi ce A Day [facility] Warfarin Sodium Warfarin Sodium 2018-11-05 00:00:00 No 3 Daily [facility] Albuterol Sulf (Proventil 0.083% Neb) 3 Ml NEBU Albute rol Sulf (Proventil 0.083% Neb) 3 Ml NEBU 2018-09-13 00:00:00 No 3 Every 12 Hours [facility] Albuterol Sulfate (Proair Hfa Inhaler*) 8.5 Gm INH Alb uterol Sulfate (Proair Hfa Inhaler*) 8.5 Gm INH 2018-09-13 00:00:00 No 1 Th ree Times A Day [facility] Albuterol Sulfate (Proair Hfa Inhaler*) 8.5 Gm INH Alb uterol Sulfate (Proair Hfa Inhaler*) 8.5 Gm INH 2018-09-13 00:00:00 No [facility] Cyanocobalamin (Vitamin B-12) (Vitamin B-12) 2,000 Mcg TABLET.ER Cyanocobalamin (Vitamin B-12) (Vitamin B-12) 2,000 Mcg TABLET.ER 2018-09-13 00:00:00 No 2000 Weekly [facility] Duloxetine Hcl (Cymbalta) 30 Mg CAPSULE. Duloxetine Hcl (Cymbalta) 30 Mg CAPSULE. 2018-09-13 00:00:00 No 60 Bedtime [facility] Fe Fumarate/Vit C/B12-If/Fa (Ferocon Capsule) 1 Each C APSULE Fe Fumarate/Vit C/B12-If/Fa (Ferocon Capsule) 1 Each CAPSULE 2018-09-13 00:00:00 No 1 Daily [facility] Formoterol Fumarate (Perforomist) 20 Mcg/2 Ml VIAL.NEB Formoterol Fumarate (Perforomist) 20 Mcg/2 Ml VIAL.NEB 2018-09-13 00:00:00 No 2 0 Daily [facility] Liraglutide (Victoza 3-Asad) 0.6 Mg/0.1 Ml PEN.INJCTR L iraglutide (Victoza 3-Asad) 0.6 Mg/0.1 Ml PEN.INJCTR 2018-09-13 00:00:00 No 1.8 Every Morning [facility] [place]-3/Dha/Epa/Fish Oil (Fish Oil [place]-3 Softgel) 1 Each CAPSULE. [place]- 3/Dha/Epa/Fish Oil (Fish Oil [place]-3 Softgel) 1 Each CAPSULE. 2018-09-13 00:00:00 No 1 Twice A Day [facility] Repaglinide (Prandin) 1 Mg TAB Repaglinide (Prandin) 1 Mg TAB 2018-09-13 00:00:00 No .5 As Needed [facility] Tamsulosin Hcl Tamsulosin Hcl 2018-09-13 00:00:00 No .8 Every 12 Hours [facility] Testoterone Testoterone 2018-09-13 00:00:00 No 1 [facility] Furosemide Furosemide 2017-06-11 00:00:00 No 80 Laquita ly [facility] Metoprolol Tartrate Metoprolol Tartrate 2017-06-11 00:00:00 No 12.5 Twice A Day [facility] Warfarin Sodium (Coumadin) 5 Mg TABLET Warfarin Sodium (Coumadin ) 5 Mg TABLET 2017-06-11 00:00:00 No 3 Today At 5:00PM [facility] Furosemide (Lasix) 40 Mg TABLET Furosemide (Lasix) 40 Mg TABLET 2017-06-04 00:00:00 No 2 Twice A Day [facility] Furosemide (Lasix) 40 Mg TABLET Furosemide (Lasix) 40 Mg TABLET 2017-06-04 00:00:00 No 80 Twice A Day [facility] Ibuprofen Ibuprofen 2017-06-04 00:00:00 No 600 Every 6 Hours as needed for Pain [facility] Mucas Mucas 2017-06-04 00:00:00 No 400 Twice A Day [facility] Servent Disk Servent Disk 2017-06-04 00:00:00 No 50 Twice A Day [facility] Warfarin Sodium (Coumadin) 5 Mg TABLET Warfarin Sodium (Coumadin ) 5 Mg TABLET 2017-06-04 00:00:00 No 3 Today At 5:00PM [facility] Warfarin Sodium (Coumadin) 2 Mg TABLET Warfarin Sodium (Coumadin ) 2 Mg TABLET 2017-06-04 00:00:00 No 2 Daily [facility] Warfarin Sodium (Coumadin) 2.5 Mg TABLET Warfarin Sodi um (Coumadin) 2.5 Mg TABLET 2017-06-04 00:00:00 No 2.5 Daily [facility] Warfarin Sodium (Coumadin) 5 Mg TABLET Warfarin Sodium (Coumadin ) 5 Mg TABLET 2017-06-04 00:00:00 No 5 Today At 5:00PM [facility] Aspirin Aspirin 2017-05-07 00:00:00 No 81 Daily [facility] Bupivacaine Hcl (Marcaine) 2.5 Mg/1 Ml VIAL Bupivacain e Hcl (Marcaine) 2.5 Mg/1 Ml VIAL 2017-05-07 00:00:00 No 1.143 Daily [facility] Carisoprodol Carisoprodol 2017-05-07 00:00:00 No 350 as needed [facility] Fenofibric Acid (Choline) (Trilipix) 135 Mg CAPSULE. Fenofibric Acid (Choline) (Trilipix) 135 Mg CAPSULE. 2017-05-07 00:00:00 No 135 Daily [facility] Hydrocodone Bit/Acetaminophen (Hydrocodone-Apap 10-325 Mg Tab) 1 Each TABLET Hydrocodone Bit/Acetaminophen (Hydrocodone-Apap 10-325 Mg Tab) 1 Each TABLET 2017-05-07 00:00:00 No 1 as needed [facility] Hydrocodone Bit/Acetaminophen (Hydrocodon-Acetaminophn 10-325) 1 Each TABLET Hydrocodone Bit/Acetaminophen (Hydrocodon-Acetaminophn 10-325) 1 Each TABLET 2017-05-07 00:00:00 No 10 As Needed [facility] Latanoprost Latanoprost 2017-05-07 00:00:00 No 2.5 D aily [facility] Linagliptin (Tradjenta) 5 Mg TABLET Linagliptin (Tradjenta) 5 Mg TABLET 2017-05-07 00:00:00 No 5 Daily [facility] Morphine Pump Morphine Pump 2017-05-07 00:00:00 No 12.7 Daily [facility] Multivitamin (Multivitamins) 1 Each TAB.CHEW Multivita min (Multivitamins) 1 Each TAB.CHEW 2017-05-07 00:00:00 No Daily [facility] Omeprazole Omeprazole 2017-05-07 00:00:00 No 40 Laquita ly [facility] Polyethylene Glycol 3350 (Clearlax) 17 Gm POWD.PACK Po lyethylene Glycol 3350 (Clearlax) 17 Gm POWD.PACK 2017-05-07 00:00:00 No As Needed [facility] Testosterone (Testopel) 75 Mg PELLET.EA. Testosterone (Testopel) 75 Mg PELLET.EA. 2017-05-07 00:00:00 No 75 [facility] Torsemide Torsemide 2017-05-07 00:00:00 No 20 Twice A Day [facility] Zolpidem Tartrate (Ambien) 10 Mg TABLET Zolpidem Tartrate (A mbien) 10 Mg TABLET 2017-05-07 00:00:00 No 10 Bedtime [facility] Axiron Axiron 2013-09-01 00:00:00 No 30 Daily [facility] Caltrate +D Caltrate +D 2013-09-01 00:00:00 No T wice A Day [facility] Furosemide Furosemide 2013-09-01 00:00:00 No 40 Laquita ly [facility] Marcaine Marcaine 2013-09-01 00:00:00 No Daily [facility] Morphine Pump Morphine Pump 2013-09-01 00:00:00 No Daily [facility] Zolpidem Tartrate (Ambien Cr) 12.5 Mg TAB.MPHASE Zolpi dem Tartrate (Ambien Cr) 12.5 Mg TAB.MPHASE 2013-09-01 00:00:00 No 12.5 Daily [facility] Vital Signs Vital Name Observation Time Observation Value Comments Source Body Temperature 2020-06-20 15:45:00 97.5 [degF] [facility] BMI (Body Mass Index) 2020-06-15 19:43:00 31.0 kg/m2 [facility] Weight 2020-06-12 18:43:00 210 [lb_av] [facility] Temperature Oral (F) 2020-04-20 16:14:00 98 F [facility] Heart Rate 2020-04-20 16:14:00 [facility] Respitory Rate 2020-04-20 16:14:00 [facility] Systolic (mm Hg) 2020-04-20 16:14:00 [facility] [place] Diastolic (mm Hg) 2020-04-20 16:14:00 [facility] Temperature Oral (F) 2020-04-20 12:54:00 97.9 F [facility] Heart Rate 2020-04-20 12:54:00 [facility] Systolic (mm Hg) 2020-04-20 12:54:00 [facility] Diastolic (mm Hg) 2020-04-20 12:54:00 [facility] Respitory Rate 2020-04-20 12:54:00 [facility] [place] Temperature Oral (F) 2020-04-20 10:02:00 98.0 F [facility] Heart Rate 2020-04-20 10:02:00 [facility] Systolic (mm Hg) 2020-04-20 10:02:00 [facility] [place] Diastolic (mm Hg) 2020-04-20 10:02:00 [facility] [place] Respitory Rate 2020-04-20 00:22:00 [facility] Height 2020-04-14 09:17:00 175.26 cm [facility] [place] Weight 2020-04-14 09:17:00 [facility] BMI Calculated 2020-04-14 09:17:00 [facility] [place] Height 2020-04-13 15:03:00 175.26 cm [facility] BMI Calculated 2020-04-13 15:03:00 [facility] Weight 2020-04-13 15:03:00 [facility] Temperature Oral (F) 2020-04-13 00:56:00 97.9 F [facility] Heart Rate 2020-04-13 00:56:00 [facility] Respitory Rate 2020-04-13 00:56:00 [facility] Systolic (mm Hg) 2020-04-13 00:56:00 [facility] [place] Diastolic (mm Hg) 2020-04-13 00:56:00 [facility] [place] Systolic (mm Hg) 2020-04-12 23:30:00 [facility] Diastolic (mm Hg) 2020-04-12 23:30:00 [facility] [place] Temperature Oral (F) 2020-04-12 20:53:00 97.0 F [facility] Heart Rate 2020-04-12 20:53:00 [facility] Respitory Rate 2020-04-12 20:53:00 [facility] [place] Systolic (mm Hg) 2020-04-12 20:53:00 [facility] [place] Diastolic (mm Hg) 2020-04-12 20:53:00 [facility] [place] Temperature Oral (F) 2020-04-12 20:11:00 98.1 F [facility] Heart Rate 2020-04-12 20:11:00 [facility] Respitory Rate 2020-04-12 20:11:00 [facility] [place] Height 2020-04-07 18:34:00 175.26 cm [facility] Weight 2020-04-07 18:34:00 [facility] BMI Calculated 2020-04-07 18:34:00 [facility] Height 2020-04-07 14:31:00 175.26 cm [facility] Weight 2020-04-07 14:31:00 [facility] Height 2020-04-07 10:57:00 175.26 cm [facility] Weight 2020-04-07 10:57:00 [facility] BMI Calculated 2020-04-07 10:57:00 [facility] [place] Height 2020-04-04 19:05:00 175.26 cm [facility] Weight 2020-04-04 19:05:00 [facility] BMI Calculated 2020-04-04 19:05:00 [facility] BMI Calculated 2020-04-03 17:53:00 [facility] [place] Respitory Rate 2019-11-11 16:00:00 [facility] Systolic (mm Hg) 2019-11-11 16:00:00 [facility] [place] Diastolic (mm Hg) 2019-11-11 16:00:00 [facility] [place] Respitory Rate 2019-11-11 14:07:00 [facility] [place] Systolic (mm Hg) 2019-11-11 14:07:00 [facility] Diastolic (mm Hg) 2019-11-11 14:07:00 [facility] Respitory Rate 2019-11-11 12:00:00 [facility] [place] Systolic (mm Hg) 2019-11-11 12:00:00 [facility] [place] Diastolic (mm Hg) 2019-11-11 12:00:00 [facility] [place] Temperature Oral (F) 2019-11-10 17:00:00 97.6 F [facility] Height 2019-11-10 16:53:00 175.26 cm [facility] Weight 2019-11-10 16:53:00 [facility] BMI Calculated 2019-11-10 16:53:00 [facility] [place] Respitory Rate 2019-10-17 05:00:00 [facility] [place] Systolic (mm Hg) 2019-10-17 05:00:00 [facility] [place] Diastolic (mm Hg) 2019-10-17 05:00:00 [facility] [place] Systolic (mm Hg) 2019-10-17 04:00:00 [facility] Diastolic (mm Hg) 2019-10-17 04:00:00 [facility] [place] Respitory Rate 2019-10-17 04:00:00 [facility] Temperature Oral (F) 2019-10-17 04:00:00 98.4 F [facility] [place] Systolic (mm Hg) 2019-10-17 03:50:00 Jimmy rial [place] Diastolic (mm Hg) 2019-10-17 03:50:00 Mem [facility] Respitory Rate 2019-10-17 03:50:00 [facility] [place] Temperature Oral (F) 2019-10-17 01:00:00 98.0 F [facility] [place] Heart Rate 2019-10-16 22:37:00 [facility] Temperature Oral (F) 2019-10-16 22:37:00 98.4 F [facility] Height 2019-06-02 15:55:00 175.26 cm [facility] Weight 2019-06-02 15:55:00 [facility] [place] BMI Calculated 2019-06-02 15:55:00 [facility] BMI Calculated 2019-04-19 15:35:00 [facility] [place] Height 2019-04-19 15:35:00 175.26 cm [facility] [place] Weight 2019-04-19 15:35:00 [facility] [place] Height 2018-11-30 16:13:00 175.26 cm [facility] [place] Weight 2018-11-30 16:13:00 [facility] Vivek BMI Calculated 2018-11-30 16:13:00 [facility] [place] Procedures Procedure Date / Time Performed Performing Clinician [facility] e Measurement of post-voiding residual uri ne and/or bladder capacity by ultrasound, non-imaging 2020-04-04 19:08:00 [facility] ECHO TRANSESOPHAGEAL 2019-12-28 00:00:00 [facility] cystometrogram (ie, calibrated e lectronic equipment); with voiding pressure studies (ie, bladder voiding pressure), any technique 2019-06-02 16:04:00 [facility] Voiding pressure studies, intra-abdomina l (ie, rectal, gastric, intraperitoneal) (List separately in addition to code for primary procedure) 2019-06-02 16:04:00 [facility] uroflowmetry (eg, calibrated electronic equipment) 2 16:04:00 [facility] Electromyography studies (EMG) of anal o r urethral sphincter, other than needle, any technique 2019-06-02 16:04:00 [facility] Cystoscopy 2018-08-25 05:00:00 [facility] uroflowmetry 2018-03-30 05:00:00 Memoria l [facility] Catheter replacement [facility]mann Fusion<sup>1</sup> [facility] Herm noah Prostate manipulation [facility] H ermann [facility] Operation [facility] PCI - Percutaneous coronary intervention [facility] Plan of Care Planned Activity Planned Date Details Comments Source Future Scheduled Test 2020-07-27 00:00:00 INFLUENZA VACCINE [code = INFLUENZA VACCINE] [facility] Scheduled Test 2009 00:00:00 65+ PNEUMOCOCCAL V ACCINE (1 of 2 - PCV13) [code = 65+ PNEUMOCOCCAL VACCINE (1 of 2 - PCV13)] [facility] Scheduled Test 1994 00:00:00 COLONOSCOPY SCREEN ING [code = COLONOSCOPY SCREENING] [facility] Scheduled Test 1994 00:00:00 SHINGLES VACCINES (#1) [code = SHINGLES VACCINES (#1)] [facility] Instructions Congestive Heart Failure [facility] Instructions Wound Care (General) [facility] Encounters Start Date/Time End Date/Time Encounter Type Admission Type Attendi [facility] Care Department Encounter ID Source 2020-04-07 05:12:00 Inpatient [facility] [id number] [facility] 2019-12-27 08:46:46 [facility] [id number] 2019-11-10 10:41:00 Inpatient [facility] CAR [id number] [facility] 2020-06-12 21:57:00 2020-06-20 16:35:00 Discharged Inpatient 1 ROSALIE SHORT [facility] [id number] [facility] 2020-04-13 10:00:54 2020-04-20 15:36:00 Outpatient Fransisca Ferreira [facility] [id number] 2020-04-13 12:31:00 2020-04-13 10:00:00 Inpatient E [facility] MED [id number] 2020-04-07 05:12:00 2020-04-12 19:00:[address] [facility] [id number] 2020-04-04 14:15:00 2020-04-04 23:59:59 Outpatient Kelechi Sibley [facility] [id number] 2020-03-13 13:00:00 2020-03-13 13:00:00 [facility] [id number] 2020-03-01 00:00:00 2020-03-01 00:00:00 Orders Only D octor Unassigned, [place] [facility] [id number] 2020-02-29 09:58:00 2020-02-29 23:59:00 Hospital Encounter Hailee Mcguire [facility] ([facility] [id number] 2020-02-29 00:00:00 2020-02-29 00:00:00 [facility] [id number] 2020-02-29 00:00:00 2020-02-29 00:00:00 Nurse Triage Kena Arnold [facility] [id number] 2020-02-02 13:35:00 2020-02-02 23:59:00 Outpatient Teofilo Summers [facility] [id number] 2020-02-02 13:35:00 2020-02-02 13:35:00 Outpatient [id number] [facility] 2019-12-28 08:40:00 2019-12-28 08:40:00 Registered Surgical Day Care [facility] [id number] [facility] [place] 2019-12-14 12:47:00 2019-12-14 12:47:00 Registered Clinic [facility] [id number] [facility] 2019-11-12 08:35:00 2019-11-12 11:01:00 Departed Emergency Room [facility] [id number] [facility] 2019-11-10 10:41:00 2019-11-11 12:00:00 Outpatient Mundo Vásquez [facility] [id number] 2019-10-16 16:35:00 2019-10-16 23:39:00 Outpatient Lissette Graham [facility] [id number] 2019-10-16 14:58:00 2019-10-16 14:58:00 Emergency E [facility] [id number] [facility] 2019-10-16 11:05:00 2019-10-16 14:53:00 Departed Emergency Room 1 RENAE MENDOZA [facility] [id number] [facility] 2019-10-05 23:28:00 2019-10-06 00:45:00 Departed Emergency Room [facility] [id number] [facility] 2019-08-05 23:06:00 2019-08-12 16:35:00 Discharged Inpatient 1 DORIS PERALES [facility] [id number] [facility] 2019-07-23 08:57:00 2019-07-23 23:59:00 Outpatient Mila Jones [facility] [id number] 2019-06-11 17:49:00 2019-06-16 17:48:00 Discharged Inpatient 1 ROSALIE SHORT [facility] [id number] [facility] 2019-06-02 11:15:00 2019-06-02 23:59:59 [facility] [id number] 2019-06-01 13:00:00 2019-06-01 23:59:59 Outpatient [facility] [id number] 2019-05-26 16:43:00 2019-05-28 12:59:00 Discharged Inpatient (obs) 1 ROSALIE SHORT [facility] [id number] [facility] 2019-05-27 09:00:00 2019-05-27 23:59:59 Outpatient Kelechi Sibley [facility] [id number] 2019-05-25 13:40:00 2019-05-25 13:40:00 [facility] [id number] 2019-05-18 13:45:00 2019-05-18 23:59:59 Outpatient MG [facility] [id number] 2019-05-04 13:50:00 2019-05-04 13:50:00 [facility] [id number] 2019-05-04 11:30:00 2019-05-04 11:30:00 Outpatient MG MG [id number] 2019-04-23 19:41:00 2019-05-04 10:54:00 Discharged Inpatient 1 ROSALIE SHORT [facility] [id number] [facility] 2019-04-21 14:00:00 2019-04-21 14:00:00 Outpatient VISIT, HARLAN SCHWARZ [facility] [id number] 2019-04-19 10:30:00 2019-04-19 23:59:59 [facility] [id number] 2019-02-08 22:29:00 2019-02-15 14:47:00 Discharged Inpatient 1 ROSALIE SHORT [facility] [id number] [facility] 2019-01-05 22:50:00 2019-01-09 13:42:00 Discharged Inpatient 1 ROSALIE SHORT [facility] [id number] [facility] 2018-12-30 13:58:00 2018-12-31 15:25:00 Discharged Inpatient (obs) 3 HAILEE MCGUIRE [facility] [id number] [facility] 2018-12-28 09:25:00 2018-12-28 23:59:00 [facility] [id number] 2018-12-13 12:11:00 2018-12-15 13:01:00 Discharged Inpatient 1 RENAE SOLARES [facility] [id number] [facility] 2018-12-08 11:09:00 2018-12-08 11:09:00 Registered Surgical Day Care [facility] [id number] [facility] 2018-11-30 10:30:00 2018-11-30 23:59:59 Outpatient Kelechi Sibley [facility] [id number] 2018-11-06 21:48:00 2018-11-07 15:53:00 Discharged Inpatient (obs) [facility] [id number] [facility] 2018-11-04 10:43:00 2018-11-05 23:59:59 Outpatient [facility] [id number] 2018-09-13 19:21:00 2018-09-16 12:23:00 Discharged Inpatient 1 ROSALIE SHORT [facility] [id number] [facility] 2018-08-02 07:48:00 2018-08-05 14:08:00 Discharged Inpatient 3 HAILEE MCGUIRE [facility] [id number] [facility] 2017-12-04 18:00:00 2017-12-04 23:59:00 Outpatient Oleksandr Polanco [facility] [id number] 2017-04-23 14:07:00 2017-04-23 23:59:00 Outpatient Mila Jones [facility] [id number] 2016-06-24 08:46:00 2016-06-24 23:59:00 Outpatient Fadi Galeas [facility] [id number] 2016-06-19 09:37:00 2016-06-19 23:59:00 Outpatient Fadi Galeas [facility] [id number] 2016-04-23 10:15:00 2016-04-23 23:59:00 Outpatient Monique Reed MHOIB MHOIB [id number] 2016-04-10 08:29:00 2016-04-10 23:59:00 Outpatient Elida Valenzuela [facility] [id number] 2016-04-02 11:11:00 2016-04-02 23:59:00 Outpatient Guillermina Martínez cassandra Kriss [facility] [id number] 2016-03-28 06:32:00 2016-03-28 23:59:00 Outpatient Teofilo Summers [facility] [id number] 2016-03-06 09:34:00 2016-03-06 23:59:00 [id number] Results Test Description Test Time Test Comments Results Result Comments Source Capillary blood glucose measurement by glucometer (mas s/volume) 2020-06-20 15:13:00 Test Item Bedside Glucose (test code = 76606-3) 143 70-120 Meter ID: [id number] leukocytes automated count (number/volume)2020-06-20 05:55:00* Test Item Value Reference Range Interpretation Comments White Blood Count (test code = 6690-2) 4.68 4.8-10.8 [facility] erythrocytes automated count (number/volume)2020-06-20 05:55:00* Test Item Value Reference Range Interpretation Comments Red Blood Count (test code = 789-8) 3.20 4.3-5.7 [facility] hemoglobin measurement (moles/volume)2020-06-20 05:55:00* Test Item Value Reference Range Interpretation Comments Hemoglobin (test code = 41944-9) 9.3 14.0-18.0 [facility] blood hematocrit (volume fraction)2020-06-20 05:55:00* Test Item Value Reference Range Interpretation Comments Hematocrit (test code = 4544-3) 30.9 38.2-49.6 [facility] erythrocyte mean corpuscular neeqcq7373-01-29 05:55:00* Test Item Value Reference Range Interpretation Comments Mean Corpuscular Volume (test code = 787-2) 96.6 81-99 [facility] erythrocyte mean corpuscular hemoglobin (mass per erythrocyte)2020-06-20 05:55:00* Test Item Value Reference Range Interpretation Comments Mean Corpuscular Hemoglobin (test code = 785-6) 29.1 28-32 [facility] erythrocyte mean corpuscular hemoglobin concentration measurement (mass/volume)2020-06-20 05:55:00* Test Item Value Reference Range Interpretation Comments Mean Corpuscular Hemoglobin Concent (test code = 786-4) 30.1 31-35 [facility] HospitalRDW LexPd-Yjo3363-09-25 05:55:00* Test Item Value Reference Range Interpretation Comments Red Cell Distribution Width (test code = 51745-6) 17.6 11.7 -14.4 [facility] blood platelet count (count/volume)2020-06-20 05:55:00* Test Item Value Reference Range Interpretation Comments Platelet Count (test code = 777-3) 153 140-360 [facility] blood segmented neutrophil count as percentage of total fwadgrtvak6162-14-15 05:55:00* Test Item Value Reference Range Interpretation Comments Neutrophils (%) (Auto) (test code = 70229-3) 75.7 38.7-80.0 [facility] blood lymphocyte count as percentage ot total rqmidnhgnj8509-84-91 05:55:00* Test Item Value Reference Range Interpretation Comments Lymphocytes (%) (Auto) (test code = 736-9) 12.6 18.0-39.1 [facility] blood monocyte count as percentage of total riqsfuclue8566-93-50 05:55:00* Test Item Value Reference Range Interpretation Comments Monocytes (%) (Auto) (test code = 5905-5) 7.7 4.4-11.3 [facility] blood eosinophil count as percentage of total igbxjcmdbx1183-85-75 05:55:00* Test Item Value Reference Range Interpretation Comments Eosinophils (%) (Auto) (test code = 713-8) 1.9 0.0-6.0 [facility] blood basophil count as percentage of total ojdkofzjlx8169-57-73 05:55:00* Test Item Value Reference Range Interpretation Comments Basophils (%) (Auto) (test code = 706-2) 0.4 0.0-1.0 [facility] HospitalFluoroscopic procedure less than one hour pddlfqqv8256-57-70 05:55:00* Test Item Value Reference Range Interpretation Comments IM GRANULOCYTES % (test code = IM GRANULOCYTES %) 1.7 0.0- 1.0 [facility] blood neutrophil count 2020-06-20 05:55:00* Test Item Value Reference Range Interpretation Comments Neutrophils # (Auto) (test code = 751-8) 3.5 2.1-6.9 [facility] lymphocytes count (number/volume) 2020-06-20 05:55:00* Test Item Value Reference Range Interpretation Comments Lymphocytes # (Auto) (test code = 50492-2) 0.6 1.0-3.2 [facility] monocytes automated count (number/volume)2020-06-20 05:55:00* Test Item Value Reference Range Interpretation Comments Monocytes # (Auto) (test code = 742-7) 0.4 0.2-0.8 [facility] Hospital[facility] blood eosinophil count 2020-06-20 05:55:00* Test Item Value Reference Range Interpretation Comments Eosinophils # (Auto) (test code = 711-2) 0.1 0.0-0.4 [facility] HospitalAutom[facility] blood basophil count (count/volume)2020-06-20 05:55:00* Test Item Value Reference Range Interpretation Comments Basophils # (Auto) (test code = 704-7) 0.0 0.0-0.1 [facility] HospitalFluoroscopic procedure less than one hour deiybtbt0289-28-43 05:55:00* Test Item Value Reference Range Interpretation Comments Absolute Immature Granulocyte (auto (bharat t code = Absolute Immature Granulocyte (auto) 0.08 0-0.1 [facility] plasma sodium measurement (moles/volume)2020-06-20 05:55:00* Test Item Value Reference Range Interpretation Comments Sodium Level (test code = 2951-2) 136 136-145 [facility] or plasma potassium measurement (moles/volume)2020-06-20 05:55:00* Test Item Value Reference Range Interpretation Comments Potassium Level (test code = 2823-3) 3.4 3.5-5.1 [facility] or plasma chloride measurement (moles/volume)2020-06-20 05:55:00* Test Item Value Reference Range Interpretation Comments Chloride Level (test code = 2075-0) 93 98-107 [facility]um or plasma carbon dioxide, total measurement (moles/volume)2020-06-20 05:55:00* Test Item Value Reference Range Interpretation Comments Carbon Dioxide Level (test code = 2028-9) 28 22-29 [facility] or plasma anion tjk3509-76-48 05:55:00* Test Item Value Reference Range Interpretation Comments Anion Gap (test code = 59177-1) 18.4 8-16 [facility] or plasma urea nitrogen measurement (mass/volume)2020-06-20 05:55:00* Test Item Value Reference Range Interpretation Comments Blood Urea Nitrogen (test code = 3094-0) 70 7-26 [facility] Hospitalerum or plasma creatinine measurement (mass/volume)2020-06-20 05:55:00* Test Item Value Reference Range Interpretation Comments Creatinine (test code = 2160-0) 2.43 0.72-1.25 [facility] Hospital[facility]um or plasma urea nitrogen/creatinine mass phiml5257-58-23 05:55:00* Test Item Value Reference Range Interpretation Comments BUN/Creatinine Ratio (test code = 3097-3) 29 6-25 [facility] HospitalEstimated glomerular filtration rate (GFR) gomsagixshyqq0991-20-02 05:55:00* Test Item Value Reference Range Interpretation Comments Estimat Glomerular Filtration Rate (test code = 074013606) 26 >60 Ranges were taken from the National Kidney Disease Education Program and the [facility] [employer] literature.Reference ranges:60 or greater: Umskmr12-41 ( for 3 consecutive months): Chronic kidney disease 15 or less: Kidney failureLegent Orthopedic HospitalGlucose grwugurslhq3154-60-41 05:55:00* Test Item Value Reference Range Interpretation Comments Glucose Level (test code = QRW1564) 93 74-118 [facility]um or plasma calcium measurement (mass/volume)2020-06-20 05:55:00* Test Item Value Reference Range Interpretation Comments Calcium Level (test code = 70618-0) 9.4 8.4-10.2 [facility] HospitalRandom serum or plasma vancomycin measurement (mass/volume)2020-06-19 15:35:00* Test Item Value Reference Range Interpretation Comments Random Vancomycin Level (test code = 50014-5) 14.1 [facility] HospitalCHEST SINGLE (PORTABLE)2020-06-19 08:35:00 [facility] [address] [place] [address] Patient Name: STEVE BENEDICT MR #: [id number] : 1945 Age/Sex: 74/M Req #: [id number] Adm Physician: ROSALIE SHORT MD Ordered by: ROSALIE SHORT MD Report #: [id number] Location: [facility] Room/Bed: [facility] Procedure: [id number] DX/CHEST SINGL E (PORTABLE) Exam Date: 06/19/20 Exam Time: 0604 REPORT STATUS: Signed TECHNIQUE: Fr ontal view of the chest. INDICATION: CHF [id number] NAZANIN RISON: 06/12/2020 DISCUSSION: Limited evaluation due to portable techniqu e. Lines and hardware: Overlying EKG leads are noted. Heart and mediastin um: Stable. Lungs and pleura: Stable linear atelectasis/scarring at the left l tyra base. Negative for new suspicious opacity. Negative for effusion or pneumo thorax. Soft tissues and bones: No acute abnormality. Stable left posterior mi d rib fractures. IMPRESSION: Stable exam compared to 06/12/2020. Signed by: Tobias West MD on 06/19/2020 8:36 AM Dictated By: TOBIAS WEST MD 5 Transc ribed By: ERAN on 06/19/20835 COPY TO: ROSALIE SHORT MD Serum or plasma total bilirubin measurement (mass/volume)2020-06-19 04:15:00* Test Item Value Reference Range Interpretation Comments Total Bilirubin (test code = 1975-2) 0.9 0.2-1.2 [facility] HospitalFluoroscopic procedure less than one hour uwqkpztd2451-51-13 04:15:00* Test Item Value Reference Range Interpretation Comments Aspartate Amino Transf (AST/SGOT) (test code = Aspartate Amino Transf (AST/SGOT)) 28 5-34 [facility] Hospitalerum or plasma alanine aminotransferase measurement (enzymatic activity/volume)2020-06-19 04:15:00* Test Item Value Reference Range Interpretation Comments Alanine Aminotransferase (ALT/SGPT) (test code = 1742-6) 22 0-55 [facility] Hospitalerum or plasma protein measurement (mass/volume)2020-06-19 04:15:00* Test Item Value Reference Range Interpretation Comments Total Protein (test code = 2885-2) 6.2 6.5-8.1 [facility] Hospitalerum or plasma albumin measurement (mass/volume)2020-06-19 04:15:00* Test Item Value Reference Range Interpretation Comments Albumin (test code = 1751-7) 2.8 3.5-5.0 [facility] HospitalPlasma globulin measurement (mass/volume) 2020-06-19 04:15:00* Test Item Value Reference Range Interpretation Comments Globulin (test code = 98198-0) 3.4 2.3-3.5 [facility] Hospitalerum or plasma albumin/globulin mass hsehj7047-98-96 04:15:00* Test Item Value Reference Range Interpretation Comments Albumin/Globulin Ratio (test code = 1759-0) 0.8 0.8-2.0 [facility]erum or plasma alkaline phosphatase measurement (enzymatic activity/volume)2020-06-19 04:15:00* Test Item Value Reference Range Interpretation Comments Alkaline Phosphatase (test code = 6768-6) 60 40-150 [facility] HospitalBNP Wmb-lLly4050-30-24 04:15:00* Test Item Value Reference Range Interpretation Comments B-Type Natriuretic Peptide (test code = 92261-5) 339.0 0-100 [facility] Hospitalerum or plasma trough vancomycin level at trough (mass/volume)2020-06-17 22:00:00* Test Item Value Reference Range Interpretation Comments Vancomycin Level Trough (test code = 4092-3) 21.6 5.0-10.0 Results repeated and called to hardy yost at 2301 on 06/17/20 by Sadi Sullivan. Re ad back and verified.[facility] Hospitalerum or plasma magnesium measurement (mass/volume)2020-06-16 08:48:00* Test Item Value Reference Range Interpretation Comments Magnesium Level (test code = 33795-7) 2.1 1.3-2.1 [facility] Hospital[facility]um or plasma cyclic citrullinated peptide IgA+IgG antibody assay by immunoassay (units/volume)2020-06-15 05:50:00 * Test Item Value Reference Range Interpretation Comments Cyclic Citrullinated Peptide IgG Ab (test code = 29134-9) 11 0-19 Negative <20 Weak positive 20 - 39 Moderate positive 40 - 59 Strong positive >59Performed at: - [employer] [id number] Director: Charanjit Godwin MD, Phone: [phone] [facility] Spine & Surgical Hospitalerum or plasma triiodothyronine (T3) free measurement (mass/volume)2020-06-14 15:09:00* Test Item Value Reference Range Interpretation Comments Free Triiodothyronine (test code = 3051-0) 1.9 2.0-4.4 Performed at: [facility] [id number] Director: Tito Rodriguez MD, Phone: [phone] [facility] Spine & Surgical Hospitalerum or plasma thyroperoxidase antibody assay (units/volume)2020-06-14 15:09:00* Test Item Value Reference Range Interpretation Comments Thyroid Peroxidase Antibodies (test code = 8099-4) 11 0-3 4 [facility] HospitalFluoroscopic procedure less than one hour kkeywbjz0119-33-18 06:06:00* Test Item Value Reference Range Interpretation Comments Hemoglobin A1c Percent (test code = Hemoglobin A1c Percent) 6.2 4.0-7.0 [facility] HospitalPhosphorus epwjhjylzob1529-37-30 06:06:00 * Test Item Value Reference Range Interpretation Comments Phosphorus Level (test code = NCH2561) 3.4 2.3-4.7 [facility] Hospitalerum or plasma thyroxine (T4) free measurement (mass/volume)2020-06-14 06:06:00* Test Item Value Reference Range Interpretation Comments Free Thyroxine (test code = 3024-7) 0.71 0.8-1.8 [facility] Hospitalerum or plasma thyrotropin measurement by detection limit <= 0.005 miu/l (units/volume)2020-06-14 06:06:00* Test Item Value Reference Range Interpretation Comments Thyroid Stimulating Hormone (TSH) (test code = 37508-3) 2.636 0.350-4.940 [facility] Hospitalerum or plasma intact pararthyroid hormone measurement (mass/volume)2020-06-14 06:06:00* Test Item Value Reference Range Interpretation Comments Parathyroid Hormone (test code = 2731-8) 53 15-65 [facility] Hospitaler[facility] or plasma calcium measurement (mass/volume)2020-06-14 06:06:00* Test Item Value Reference Range Interpretation Comments Calcium (Send out) (test code = 91745-8) 9.0 8.6-10.2 [facility] procedure less than one hour boxazdgf3674-85-58 06:06:00* Test Item Value Reference Range Interpretation Comments Parathyroid Hormone Interpretation (test code = Parathyroid Hormone Interpretation) Comment . Interpretation Intact PTH Calcium (pg/mL) (mg/dL)Normal 15 - 65 8.6 - 10.2Pr imary Hyperparathyroidism >65 >10.2Secondary Hyperparathyroidism >65 <10.2Non-Parathyroid Hypercalcemia <65 >10.2Hypoparathyroidism <15 < 8.6Non- Parathyroid Hypocalcemia 15 - 65 < 8.6Performed at: HD - [facility] [address] [place], [place] [id number] Director: Tito Rodriguez MD, Phone: [phone] at: BN - [facility] [address] [place], [place] [id number] Director: Charanjit Godwin MD, Phone: [phone] [facility] Spine & Surgical Hospitalerum or plasma creatine kinase measurement (enzymatic activity/volume)2020-06-13 14:09:00* Test Item Value Reference Range Interpretation Comments Creatine Kinase (test code = 2157-6) 369 30-200 [facility] Hospital[facility] or plasma creatine kinase MB measurement (mass/volume)2020-06-13 14:09:00* Test Item Value Reference Range Interpretation Comments Creatine Kinase MB (test code = 57677-9) 7.50 0-5.0 [facility] HospitalTroponin I measurement by highly sensitive enzyme qhfaisdahvh0231-72-76 14:09:00* Test Item Value Reference Range Interpretation Comments Troponin I (test code = 88903-9) 0.210 0-0.300 [facility] HospitalArterial blood pH jbmgpktgmcq1047-15-53 10:15:00* Test Item Value Reference Range Interpretation Comments Arterial Blood pH (test code = 2744-1) 7.35 7.35-7.45 [facility] HospitalpCO2 EhhA0265-11-46 10:15:00* Test Item Value Reference Range Interpretation Comments Arterial Blood Partial Pressure CO2 (test code = 2019-05) 80 35-45 [facility] HospitalpCO2 XswA7905-23-82 10:15:00* Test Item Value Reference Range Interpretation Comments Arterial Blood Partial Pressure O2 (test code = 2019-05) 293 80-105 [facility] HospitalArterial blood bicarbonate measurement (moles/volume)2020-06-13 10:15:00* Test Item Value Reference Range Interpretation Comments Arterial Blood HCO3 (test code = 1960-4) 44 22-26 [facility] HospitalArterial cord blood carbon dioxide, total measurement by calculation (moles/volume)2020-06-13 10:15:00* Test Item Value Reference Range Interpretation Comments Arterial Blood Total CO2 (test code = 18381-0) 47 [facility] HospitalArterial blood base excess by calculation 2020-06-13 10:15:00* Test Item Value Reference Range Interpretation Comments Arterial Blood Base Excess (test code = 1925-7) 19.0 -2-3 [facility] HospitalArterial blood oxygen saturation nnztjhytnki2434-98-36 10:15:00* Test Item Value Reference Range Interpretation Comments Arterial Blood Oxygen Saturation (test code = 2708-6) 100.0 95-98 [facility] HospitalFluoroscopic procedure less than one hour llrygzvn2794-46-83 10:15:00* Test Item Value Reference Range Interpretation Comments FiO2 (test code = FiO2) 100 [facility] HospitalFluoroscopic procedure less than one hour lotdmlof9529-93-86 02:00:00* Test Item Value Reference Range Interpretation Comments Coronavirus (PCR) (test code = Coronavirus (PCR)) NOT DETECTED NOTD ETECTED [employer] SARS-CoV-2 assay is a nucleic amplification test intended for the qualitative detection of RNA from SARS-CoV-2 from nasopharyngeal (GROUP ACTIVITIES AIDE) specimens. It is used under Emergency Use Authorization (EUA) by FDA.A positive result is indicative of the presence of SARS-CoV-2 RNA. Clinical correlation with patient history and other diagnostic information is necessary to determine patient infe ction status.A negative (Not Detected) result does not preclude SARS-CoV-2 infec tion. Clinical Correlation with patient history and other diagnostic information should be used in patient management decisions.Invalid: Unable to generate a va lid result on this specimen. Please submit a new specimen for reprat testing oc clinically indicated.Tesing performed by:[facility] [address] [place] [id number] [id number], Clementina Jessica MD, PhD [facility] HospitalUrine color srjgblkdknkst2937-09-92 23:22:00* Test Item Value Reference Range Interpretation Comments Urine Color (test code = 5778-6) YELLOW YELLOW DARK YELLOWLegent Orthopedic HospitalUrine vnyisas3521-97-45 23:22:00* Test Item Value Reference Range Interpretation Comments Urine Clarity (test code = 77704-0) CLOUDY CLEAR [facility] Hospitalpecific gravity of Urine by Test strip 2020-06-12 23:22:00* Test Item Value Reference Range Interpretation Comments Urine Specific [place] (test code = 5811-5) 1.020 1.010-1.02 5 [facility] HospitalU[facility] pH measurement by automated test fuboj2160-00-56 23:22:00* Test Item Value Reference Range Interpretation Comments Urine pH (test code = 45247-8) 5.5 5-7 [facility] HospitalUrine leukocyte esterase detection by wgefwpvb6119-72-18 23:22:00* Test Item Value Reference Range Interpretation Comments Urine Leukocyte Esterase (test code = 5799-2) MODERATE NEGATIVE [facility] HospitalUrine nitrite fyqtjaeps5001-13-32 23:22:00* Test Item Value Reference Range Interpretation Comments Urine Nitrite (test code = 73109-1) NEGATIVE NEGATIVE [facility] HospitalUrine protein measurement by test strip (mass/volume)2020-06-12 23:22:00* Test Item Value Reference Range Interpretation Comments Urine Protein (test code = 5804-0) 1+ NEGATIVE [facility] HospitalUrine glucose dpivnetba6155-69-13 23:22:00* Test Item Value Reference Range Interpretation Comments Urine Glucose (UA) (test code = 2349-9) NEGATIVE NEGATIVE [facility] HospitalUrine ketones detection by automated test oulgh4710-36-33 23:22:00* Test Item Value Reference Range Interpretation Comments Urine Ketones (test code = 79869-3) NEGATIVE NEGATIVE [facility] HospitalUrine urobilinogen measurement by test strip (mass/volume)2020-06-12 23:22:00* Test Item Value Reference Range Interpretation Comments Urine Urobilinogen (test code = 72820-4) 0.2 0.2-1 [facility] HospitalUrine total bilirubin measurement (mass/volume)2020-06-12 23:22:00* Test Item Value Reference Range Interpretation Comments Urine Bilirubin (test code = 1978-6) NEGATIVE NEGATIVE [facility] HospitalUrine erythrocytes laeqviyhs7531-86-73 23:22:00* Test Item Value Reference Range Interpretation Comments Urine Blood (test code = 35366-2) SMALL NEGATIVE [facility] HospitalAutomated urine sediment leukocyte count by microscopy (number/high power field)2020-06-12 23:22:00* Test Item Value Reference Range Interpretation Comments Urine WBC (test code = 5821-4) >50 0-5 [facility] HospitalErythrocytes detection in urine sediment by light hpcooisulg0593-30-15 23:22:00* Test Item Value Reference Range Interpretation Comments Urine RBC (test code = 49155-4) 6-10 0-5 [facility] HospitalBacteria detection in urine sediment by light mjlpeszdzw1789-54-90 23:22:00* Test Item Value Reference Range Interpretation Comments Urine Bacteria (test code = 86594-8) MODERATE NONE [facility] HospitalEpithelial cells detection in urine sediment by light itnlfshvlr1935-30-41 23:22:00* Test Item Value Reference Range Interpretation Comments Urine Epithelial Cells (test code = 54797-3) FEW NONE [facility] HospitalBacterial urine ddfchna6940-40-32 23:22:00* Test Item Value Reference Range Interpretation Comments Urine Culture (test code = 630-4) PSEUDOMONAS AERUGINOSA [facility] HospitalFluoroscopic procedure less than one hour tdvjlaof0291-52-51 21:00:00* Test Item Value Reference Range Interpretation Comments Lactic Acid Level (test code = Lactic Acid Level) 1.3 0.5- 2.0 [facility] HospitalCHEST SINGLE (PORTABLE)2020-06-12 20:27:00 [facility] [address] [address] Patient Name: STEVE BENEDICT MR #: [id number] : 1945 Age/Sex: 74/M Req #: [id number] Adm Physician: Ordered by: CLEMENTINA STONE MD Report #: [id number] Location: ER Room/Bed: Procedure: [id number] DX/CHES T SINGLE (PORTABLE) Exam Date: Exam Time: REPORT [...] effusions. No pneumothorax BONES AND SOFT TISSUES: Fusi on plate in the lower cervical spine is partially imaged but grossly intact. T here are fractures of the left sixth and seventh ribs. Fracture of the left ei ghth rib cannot be excluded. Mild degenerative changes of the acromioclavicula r joints. The soft tissues are normal. IMPRESSION: Fractures of th e left sixth and seventh ribs and possibly the left eighth rib. Subsegmental a telectasis of the left lung. No evidence of pneumothorax or hemothorax. S igned by: Dr. Lalo Chappell MD on 06/12/2020 8:30 PM Dictated By: YESIKA CHAPPELL MD Transcribed By: ERAN on 06/12/202029 COPY TO: CLEMENTINA STONE MD Blood cktdodq6797-75-19 19:09:00* Test Item Value Reference Range Interpretation Comments Blood Culture (test code = 05085707) NO GROWTH AFTER 5 DAYS, FINAL REPORT [facility] HospitalProthrombin time (PT) in platelet poor plasma by coagulation otdrg4229-75-65 18:48:00* Test Item Value Reference Range Interpretation Comments Prothrombin Time (test code = 5902-2) 13.5 11.9-14.5 [facility] HospitalINR in Platelet poor plasma by Coagulation fyzrg8763-05-96 18:48:00* Test Item Value Reference Range Interpretation Comments Prothromb Time International Ratio (test code = 6301-6) 0.98 Oral Anticoagulant Therapy INR Values:1. Low Intensity Therapy 1.5 - 2.02 . Moderate Intensity Therapy 2.0 - 3.03. High Intensity Therapy(1) 2.5 - 3. 54. High Intensity Therapy(2) 3.0 - 4.05. Panic Value INR > 5.0 [facility] HospitalActivated partial thromboplastin time (aPTT) in platelet poor plasma by coagulation pkyhq7794-87-45 18:48:00* Test Item Value Reference Range Interpretation Comments Activated Partial Thromboplast Time (test code = 81561-2) 39.5 23.8-35.5 [facility] HospitalELECTROLYTES2020-06-25 15:44:003.2 [facility] FFFMI7558-44-75 11:15:002.0[facility]annCHE[facility] PANEL 2020-04-20 11:15:56148Vgokhmvh [facility]annCHE[facility] CPWJL0545-67-23 11:15:0039[facility]CHE[facility] CWVPQ4732-50-32 11:15:001.56[facility]CHE[facility] FVCUH4070-30-35 11:15:31669Uusipcjs [facility]CHE[facility] BIEUL1503-86-47 11:15:002.8[facility]annCHE[facility] NDKPC8655-63-35 11:15:0097[facility]CHE[facility] IVUWX1305-38-34 11:15:0033 [facility] GXPMS1269-23-10 11:15:008.8[facility]annCHEM PANEL 2020-04-20 11:15:008.3[facility]annCHE[facility] MEYXW1946-74-75 11:15:0043[facility] VtfvnlaCGWLAMVSHN1105-42-19 11:15:00Normal (04/20/20 6:15 AM)[facility] TKWVWFNIQP9204-92-27 11:15:00Normal (04/20/20 6:15 AM)[facility]annHEMATOLOGY 2020-04-20 11:15:0073.4[facility] HbqtdvsCZITFNHQYP6192-43-03 11:15:0016.9[facility] DrjsuoqTJPOVQIMXH8178-08-78 11:15:007.8[facility] MjirqenMIEKGRPUPO2696-49-54 11:15:001.0[facility] QfjkbccRGPNNYMEZM7446-59-07 11:15:000.9[facility] PRCMXKJKVU1737-13-28 11:15:003.5[facility] YncbmktJBZOJYDUIL9019-69-03 11:15:000.8 [facility] ZawoohrIIASKZJQRJ8870-06-62 11:15:000.4[facility]annHEMATOLOGY 2020-04-20 11:15:000.1[facility] PsebzqvZSSIHLXJDJ5472-93-98 11:15:004.8[facility] SupuwwlQXSBNOMCXL1356-18-72 11:15:004.39[facility] OtwtmvzMAAJGFKZCB3492-89-29 11:15:0012.1[facility] IekghpyBALDQIMTXG6479-88-38 11:15:0038.3[facility] UVAPZWMARP1545-03-12 11:15:0087.2[facility] XpsiyhbVRDBIHSIIH1782-34-07 11:15:00* Test Item Value Reference Range Interpretation Comments MCH (test code = MCH) 27.5 pg 27.0-31.0 [facility] CpaeozpQASIDGYWDE2838-48-53 11:15:0031.5[facility]annHEMATOLOGY 2020-04-20 11:15:0019.6[facility] UrhhmigLPXSNWBLJE0847-80-70 11:15:04861Mbiwfxcz LvplkmrZJKJOWSYZC9594-27-41 11:15:008.0[facility] ZpjyaqoZIRKMYUPAM8195-79-45 18:33:0017.2[facility] SxnzvvtWXLVTIUBKM9468-00-04 18:33:00* Test Item Value Reference Range Interpretation Comments Vanco Tr TND (test code = Vanco Tr TND) 1330 1 [facility]CHE[facility] PLOGW3761-27-80 10:04:0083[facility]annCHEM PANEL 2020-04-19 10:04:0036[facility]CHE[facility] NTFSM1183-63-45 10:04:001.50[facility]annCHE[facility] RHCTS1384-02-95 10:04:42964Srqjhjeg [facility]CHE[facility] XVAET7159-93-44 10:04:003.1[facility]annCHEM KYMSG5982-84-12 10:04:94662Mvjxnnza [facility]CHE[facility] NMUME6567-22-12 10:04:0035[facility]CHE[facility] HCGLJ7089-06-11 10:04:009.2 [facility] CCUJO1469-56-44 10:04:006.1[facility]annCHEM PANEL 2020-04-19 10:04:0045[facility]CHE[facility] FQHBT0204-22-24 10:04:001.6[facility]CHE[facility] KPSLW8049-17-96 10:04:003.4[facility] OzthkvjIDVOWMKRXV5633-46-92 10:04:00Normal (04/19/20 5:04 AM)[facility] NotddxlROANWEDXLW7000-54-45 10:04:00 76.2[facility] JckmsqnNKINWHCBER6191-86-44 10:04:0015.3[facility]annHEMATOLOGY 2020-04-19 10:04:007.2[facility] BxalvtwPWJILWTDVU0686-29-22 10:04:000.6[facility] LjjczfjSNKTDLXVIO8439-94-14 10:04:000.7[facility] HcsfcuwPMVXIUABNP8966-80-73 10:04:003.5[facility] VcvyhjlUVYRBCLPIF5803-06-76 10:04:000.7[facility] LNCRMGYZZH4113-74-30 10:04:000.3[facility] PuxetybSWVXZFSEHM4058-29-74 10:04:001+ (04/19/20 5:04 AM)[facility] VgjbpgpNTIBNWTCWW7825-32-77 10:04:004.6[facility] VcxacolMGGOXGRMLN0256-68-32 10:04:004.73[facility] XamcbqpDJGEAJTFFB7902-04-40 10:04:0012.8[facility] KmcgdhrMPSRTXBTYB2861-35-37 10:04:0041.5[facility] HFZUSZUWBU7430-25-33 10:04:0087.8[facility] TyfxudmBEYWVCWTFM6552-77-80 10:04:00* Test Item Value Reference Range Interpretation Comments MCH (test code = MCH) 27.1 pg 27.0-31.0 [facility] TqdisjxKAIILKPVSQ8192-83-74 10:04:0030.8[facility]annHEMATOLOGY 2020-04-19 10:04:0019.5[facility] VhciepvSYHXZTYDOT7510-44-33 10:04:29664Ogwixbep HgkvinhCOFZZQCDJI0677-49-86 10:04:007.8[facility]annCHEM LZEXR0199-82-92 11:25:0077[facility]CHE[facility] JWEDI3436-20-50 11:25:0041[facility]CHE[facility] JIXJK8389-44-90 11:25:001.60[facility]CHE[facility] FGLTA1095-63-59 11:25:23174 [facility] SDPVZ2547-53-96 11:25:0098[facility]annCHEM PANEL 2020-04-18 11:25:0037[facility]annCHE[facility] SQCIQ8226-23-35 11:25:006.0[facility]annCHE[facility] OFPGA9896-11-68 11:25:009.0[facility]CHE[facility] XPULJ5005-33-14 11:25:0042[facility]CHE[facility] ZBZHF9226-75-59 11:25:002.1[facility] UUTIUBAIUJ0731-57-80 11:25:004.8[facility] TrxhlwrTNTPIVWTIA3207-76-63 11:25:00 4.57[facility] IdwugcsUWISGSUITO3664-74-88 11:25:0012.5[facility]annHEMATOLOGY 2020-04-18 11:25:0040.3[facility] DbaitklVMRMNKNDTX2565-43-85 11:25:0088.3[facility] DpoczkrHTWNJDUOKX3830-39-61 11:25:00* Test Item Value Reference Range Interpretation Comments MCH (test code = MCH) 27.3 pg 27.0-31.0 [facility] LnndwruESHMYWZVES9938-73-10 11:25:0030.9[facility]annHEMATOLOGY 2020-04-18 11:25:0019.9[facility] LziwvyyEJRWZAYHZI0369-24-13 11:25:82116Cmddzpau PnxgusmBQTXOPIVOE7543-82-69 11:25:007.9[facility] NnfdjqdIHTOKJGBPH3120-37-54 11:25:00Normal (04/18/20 6:25 AM)[facility] NlmxmfmNGTRDJAUVA5515-01-88 11:25:00 73.6[facility] HbfhfppGUIPVGMTOL3064-48-02 11:25:0017.5[facility]annHEMATOLOGY 2020-04-18 11:25:008.1[facility] KkfilufJRWRRXMNLR9041-24-01 11:25:000.3[facility] PdcvevbFVNLTVBYKN1751-89-21 11:25:000.5[facility] QesqgtqTDHEOSNCMG4495-80-16 11:25:003.6[facility] IkunxdoZTNDXQYXSL2908-52-22 11:25:000.8[facility] LOBCVYTSHO6011-33-22 11:25:000.4[facility] ZfhxaxeSBGLEHOSXP8427-10-82 11:25:001+ *ABN*(04/18/20 6:25 AM)[facility] FzbabzaSLDARXYVML6236-93-42 11:25:001+ (04/18/20 6:25 AM)[facility] XdjqcnqZINCKQYCLQ0278-09-39 17:21:0015.8[facility] AEUWVJQQYA0292-54-06 15:22:0017.9[facility]annCARDIAC XAGGUAF8752-23-79 10:56:32760Zhughvyd HermannCHEM YRFVR2577-91-23 10:56:003.1[facility] EJEJNFRLEU1843-54-63 10:56:000.1[facility] YufrfrvQTEAYIUWOE2120-49-26 10:56:001+ (04/15/20 5:56 AM)[facility] GfbmsqaLXSVUFMKHM3785-26-41 15:19:0025.5[facility] HermannBACTERIAL - ZKCDEKQR8725-11-61 12:47:00Negative (04/14/20 7:47 AM)[facility]annCARDIAC SHQBRJA9982-28-78 10:50:000.13[facility]annCHEM PANEL 2020-04-14 10:50:004.5[facility] HdqhwimJTNCORNCWL6531-19-00 10:50:0054[facility] IhhzqjdLGNJRWTULN8746-97-53 10:50:66445.0[facility]annCARDIAC ENZYMES 2020-04-13 22:27:000.15[facility] GxwynekPZMAFPYPKV7300-95-84 22:27:0031[facility]annURINE AND EROPN9955-09-85 22:27:00Slight *ABN*(04/13/20 5:27 PM)[facility] AND PQIUR8104-28-11 22:27:00* Test Item Value Reference Range Interpretation Comments UA Spec Grav (test code = UA Spec Grav) 1.017 1 [facility] AND STYGI6932-37-36 22:27:00* Test Item Value Reference Range Interpretation Comments UA pH (test code = UA pH) 5.0 1 5.0-8.0 [facility] YPRMD1335-95-41 22:27:00Negative *NA*(04/13/20 5:27 PM) [facility] SPFVN0220-71-78 22:27:00Negative (04/13/20 5:27 PM) [facility] WVMWN1214-91-15 22:27:00Positive *ABN*(04/13/20 5:27 PM)[facility] LAAZR2421-09-79 22:27:00Negative (04/13/20 5:27 PM) [facility] NPYRC8641-90-54 22:27:002[facility] AND TYZKJ7292-57-56 22:27:001[facility] AND CWKJG3962-66-14 22:27:0083 [facility] TPUR5317-98-19 22:27:00* Test Item Value Reference Range Interpretation Comments U Prot/Creat (test code = U Prot/Creat) 0.17 1 [facility] AAHR1858-02-18 22:27:32958.00[facility] CHEM 2020-04-13 22:27:0012[facility]annURINE JYXZ4659-91-52 22:27:0036.0[facility]annURINE MKEV8107-55-46 22:27:00None Seen (04/13/20 5:27 PM)[facility] CARDIAC ZMXHIBW7505-40-56 15:56:33403Qihvrofu HermannCARDIAC PLVLWUI6628-34-49 15:56:0081[facility]annCARDIAC VFSXRHY7099-79-98 15:56:000.06[facility] CHEM SMOOA0224-84-99 15:56:000.58[facility]annCHEM JTIWM4756-56-48 15:56:00 6.1[facility]annCHEM EJPSU4361-67-82 15:56:002.6[facility]annCHEM PANEL 2020-04-13 15:56:0021[facility]annCHEM JAYBL6895-99-43 15:56:0025[facility]annCHEM FQUUC1033-91-81 15:56:0075[facility]CHE[facility] RBDPQ8042-43-51 15:56:000.5[facility]annCHE[facility] JTJMH7642-21-69 15:56:00* Test Item Value Reference Range Interpretation Comments B/C Ratio (test code = B/C Ratio) 23 1 6-25 [facility]CHE[facility] WAQBL5050-42-07 15:56:003.5[facility]annCHEM PANEL 2020-04-13 15:56:00* Test Item Value Reference Range Interpretation Comments A/G Ratio (test code = A/G Ratio) 0.7 1 0.7-1.6 [facility]CHE[facility] BZRVY3302-04-99 15:56:002.0[facility]annHEMATOLOGY 2020-04-13 15:56:000.94[facility] SbnqilqVLFSFSVCWZ4764-07-68 15:56:00* Test Item Value Reference Range Interpretation Comments PT (test code = PT) 13.2 s 12.0-14.7 [facility] ZkwzryxZEXCMSFKLQ4577-82-38 15:56:00* Test Item Value Reference Range Interpretation Comments INR (test code = INR) 1.00 1 0.85-1.17 [facility] JyukibqDRBHKFGBGN8459-16-54 15:56:00* Test Item Value Reference Range Interpretation Comments PTT (test code = PTT) 28.1 s 22.9-35.8 [facility]annMOLECULAR BODVWVUNJR2462-31-68 15:56:00Not Detected (04/13/20 10:56 AM)[facility]annMOLECULAR JOOHZZCEGL7757-45-77 15:56:00Detected *ABN*(04/13/20 10:56 AM)[facility]annMOLECULAR EWZDYKBWWR0560-22-07 15:56:00 Not Detected (04/13/20 10:56 AM)[facility]annMOLECULAR XUMWAZURVV6004-21-15 15:56:00Not Detected (04/13/20 10:56 AM)[facility]annMOLECULAR DIAGNOSTIC 2020-04-13 15:56:00Not Detected (04/13/20 10:56 AM)[facility]annMOLECULAR QAVDDVVIJO2885-85-97 15:56:00Not Detected (04/13/20 10:56 AM)[facility] MOLECULAR VPRZPJKKVD1413-30-11 15:56:00Not Detected (04/13/20 10:56 AM)[facility]annMOLECULAR BCZRTERXJD2038-26-24 15:56:00Not Detected (04/13/20 10:56 AM) [facility]annMOLECULAR FKTFSNWDVP3370-33-78 15:56:00Not Detected (04/13/20 10:56 AM)[facility]annMOLECULAR CRBEIUTLDG3731-85-69 15:56:00Detected *ABN*(04/13/20 10:56 AM)[facility]annMOLECULAR OVCIDTRKGQ0236-30-30 15:56:00 Not Detected (04/13/20 10:56 AM)[facility]annMOLECULAR VKLOEYLHNR2638-73-15 15:56:00Not Detected (04/13/20 10:56 AM)[facility]annMOLECULAR DIAGNOSTIC 2020-04-13 15:56:00Detected *ABN*(04/13/20 10:56 AM)[facility]annMOLECULAR WKXFAFNPAP3342-57-53 15:56:00Not Detected (04/13/20 10:56 AM)[facility] MOLECULAR KJMDMMSWJZ8691-49-33 15:56:00Not Detected (04/13/20 10:56 AM)[facility] FpfczrzNGQNKIHSCL3499-22-46 00:33:0017.9[facility] BhzhohzPLBFWYMJPE1628-71-29 00:33:00* Test Item Value Reference Range Interpretation Comments Vanco Tr TND (test code = Vanco Tr TND) 1930 1 [facility]annCHE[facility] BPBJP6791-53-07 09:59:22205Clalyjiy HermannCHEM PANEL 2020-04-10 09:59:0064[facility]annCHEM HEATC7151-62-95 09:59:001.77[facility]annCHEM KGPPC3410-83-14 09:59:01870Ucnwkkym HermannCHEM SKNGG8339-75-71 09:59:003.7[facility]annCHEM IBCIA9871-31-77 09:59:0091[facility]annCHE[facility] HNWIR7136-93-49 09:59:0042[facility]annCHEM FEPHR3983-57-28 09:59:006.7 [facility]CHE[facility] JLINL4967-51-88 09:59:009.2[facility]annCHEM PANEL 2020-04-10 09:59:0037[facility] VikaxdtUMOFCALIAG4479-97-80 00:42:0017.8[facility] FaurltwIEEBMUJADD7527-58-37 00:42:00* Test Item Value Reference Range Interpretation Comments Vanco Tr TND (test code = Vanco Tr TND) 2000 1 [facility]annCHE[facility] WCOPW5155-41-83 10:57:79341Rvcdliah HermannCHEM PANEL 2020-04-09 10:57:0069[facility]annCHEM ZFPKR1298-25-91 10:57:002.00[facility]annCHEM OLTZZ3450-50-57 10:57:11042Jvbizera HermannCHEM PKSZL4707-58-46 10:57:004.1[facility]annCHEM FFCJO2204-89-06 10:57:0091[facility]annCHEM PVUVL5087-67-13 10:57:0035[facility]annCHEM HULHF7046-88-47 10:57:0015.1 [facility]CHE[facility] QTFZB7277-09-36 10:57:009.5[facility]annCHEM PANEL 2020-04-09 10:57:0032[facility] YqyfvkvFVJBCNJWCB8793-81-16 22:28:0016.5[facility]annCHEM ENHXL5814-96-24 15:22:99356Zrjqscsb HermannCHEM BREYW9604-03-87 15:22:0065[facility]annCHEM NSQGD1745-43-98 15:22:001.88[facility]annCHEM QPAQU1556-06-61 15:22:37449Lvnmbygl HermannCHEM SHGGP1020-25-85 15:22:002.8 [facility]CHE[facility] EFAUM0570-12-40 15:22:0085[facility]annCHEM PANEL 2020-04-08 15:22:0043[facility] HermannCHEM DCBQV5581-99-96 15:22:009.8[facility]annCHEM YWVXE2688-68-02 15:22:009.1[facility] HermannCHEM CEZNX7267-04-31 15:22:0034[facility] FtwovdjKODYSNUZWC7165-90-58 15:22:007.3[facility] [place] DLGVYJRJEM4417-27-08 15:22:004.74[facility] HyezhmxIWEAEOYBDN0171-98-26 15:22:00 12.8[facility] QsabhqqNDHTXAWOXD4582-44-17 15:22:0041.2[facility] HermannHEMATOLOGY 2020-04-08 15:22:0086.8[facility] NojdkshGVLNDJQFNR3255-30-86 15:22:00* Test Item Value Reference Range Interpretation Comments MCH (test code = MCH) 27.0 pg 27.0-31.0 [facility] YzkyxpbOHPHQVONQM8493-02-33 15:22:0031.1[facility] HermannHEMATOLOGY 2020-04-08 15:22:0020.1[facility] OvozicqLGOMGAEMAD6857-97-54 15:22:28738Lowghjqt MtajhjoWVHUAZDLXE3753-53-86 15:22:007.4[facility] BcbovbePRPJDAXUTU5469-34-37 15:22:0083.0[facility] UjodsoxUEVTZIAYVO5405-75-22 15:22:0011.0[facility] [place] UPNXVPBNGH6609-75-37 15:22:005.3[facility] XazbmvzDEUGONMRDG8636-26-26 15:22:000.3 [facility] JeoodubPDBOHNUARY8311-93-71 15:22:000.4[facility] HermannHEMATOLOGY 2020-04-08 15:22:006.1[facility] JdtyokcXZIHXUMQLB7775-29-31 15:22:000.8[facility] WfzkzpsYVERKAJNHL5615-96-32 15:22:000.4[facility]annURINE AND TIQPQ0565-51-49 19:09:00Yellow *NA*(04/04/20 2:09 PM)[facility] AND YXMOY1779-85-42 19:09:00Clear *NA*(04/04/20 2:09 PM)[facility] ADMTM1881-94-44 19:09:00* Test Item Value Reference Range Interpretation Comments POC UA SG (test code = POC UA SG) 1.015 1 [facility] AND HLFZM3260-87-08 19:09:00* Test Item Value Reference Range Interpretation Comments POC UA pH (test code = POC UA pH) 6.0 1 5.0-8.0 [facility] DWQIK3769-28-68 19:09:00Negative *NA*(04/04/20 2:09 PM) [facility] XPKSC0518-22-32 19:09:00Negative *NA*(04/04/20 2:09 PM) [facility] KGZVP8222-82-49 19:09:000.2[facility] AND VOWRS2787-56-71 19:09:00Negative *NA*(04/04/20 2:09 PM)[facility] JCFRU9592-60-42 19:09:00Trace *ABN*(04/04/20 2:09 PM)[facility] HermannIMMUNOLOGY 2020-04-04 15:15:00Not Detected (04/04/20 10:15 AM)[facility]annBLOOD BANK MSLPZLS1797-05-98 19:17:00Negative (04/03/20 2:17 PM)[facility]annCHEM PANEL 2020-04-03 19:17:00* Test Item Value Reference Range Interpretation Comments B/C Ratio (test code = B/C Ratio) 41 1 6-25 [facility] [id number] 19:17:006.5[facility]annCHEM PANEL 2020-04-03 19:17:003.3[facility] [id number] 19:17:003.2[facility] PMZOY0587-85-93 19:17:00* Test Item Value Reference Range Interpretation Comments A/G Ratio (test code = A/G Ratio) 1.0 1 0.7-1.6 [facility] [id number] 19:17:0025[facility]annCHEM PANEL 2020-04-03 19:17:0017[facility]annCHE[facility] [id number] 19:17:18755Xmglaltc HermannCHEM DAHGI8823-82-81 19:17:000.5[facility] OftbxbqZFJBGQUFXQ1339-10-38 19:17:007.9[facility] ZjvtnmwBKBDIPQYNS5938-65-04 19:17:004.91[facility] VTNHSVYSKF5724-70-67 19:17:0013.5[facility] XbdtlzvSOCXITOVFF8413-14-18 19:17:00 42.7[facility] ScyeeszUJCVAZJHNF3170-28-21 19:17:0086.8[facility]annHEMATOLOGY 2020-04-03 19:17:00* Test Item Value Reference Range Interpretation Comments MCH (test code = MCH) 27.4 pg 27.0-31.0 [facility] UkfgktfUWSIGBRDZI1952-77-17 19:17:0031.6[facility]annHEMATOLOGY 2020-04-03 19:17:0019.5[facility] SaahbsiTHYWEZTLZC0234-48-00 19:17:41424Xzipmnfv CbczlygPUQXKZIEPS2043-29-19 19:17:007.7[facility] ZyuvqxlMNPLZDYFFW4835-78-85 19:17:00* Test Item Value Reference Range Interpretation Comments R-time (test code = R-time) 5.0 min 5.0-10.0 [facility] WaiucunTCKZJKCUOI7330-46-98 19:17:00* Test Item Value Reference Range Interpretation Comments K-time (test code = K-time) 1.4 min 1.0-3.0 [facility] YuuzlvbUFAUEHBGFI0370-33-69 19:17:00* Test Item Value Reference Range Interpretation Comments Angle (test code = Angle) 67.5 degrees 53.0-72.0 [facility] DogezxoXGEBPVNPCH1157-92-92 19:17:00* Test Item Value Reference Range Interpretation Comments Max Amp (test code = Max Amp) 65.7 mm 50.0-70.0 [facility] XmsfzsjLKIZCFNKLN9029-00-29 19:17:009.6[facility]annHEMATOLOGY 2020-04-03 19:17:000.0[facility] BaawkdgNZFARFPICT1916-83-50 19:17:00* Test Item Value Reference Range Interpretation Comments Coag Index (test code = Coag Index) 1.6 1 <=3.0 [facility] ZnfpdoiOYIVJOWZQE6001-33-38 19:17:00See Note (04/03/20 2:17 PM)[facility] BdgkzcsHZIIWAZCJT1150-84-64 19:17:006.6[facility] NvwwebgZUQZGRSUPI2659-04-05 19:17:000.6[facility] ZgaiqpuMOASFOBHEK9788-32-00 19:17:000.5[facility] [place] MUYBSQASCL9566-55-96 19:17:000.1[facility] TzindssFERNOKQAEZ0313-83-18 19:17:00 83.0[facility] LzyjrlgBCFDZTXLYV5867-58-11 19:17:000.0[facility]annHEMATOLOGY 2020-04-03 19:17:008.0[facility] BvdgpsnJDDRGUTSLF1629-38-34 19:17:006.0[facility] BpvgwflOUPQAEZIEJ6940-18-48 19:17:001.0[facility] LgexogaKFKKJPSNXK0805-61-28 19:17:001.0[facility] VlokpvwYIQOFRNGON8114-44-08 19:17:001.0[facility] [place] FYFDTANHZP8421-47-68 19:17:000.0[facility] KhailpsCNKOUJOBZT6426-00-18 19:17:001 [facility] ZypmjspZBIPFZQTHF1325-09-78 19:17:00Normal (04/03/20 2:17 PM)[facility] PufbmceBUJOHXYKJE8852-46-24 19:17:001+ *ABN*(04/03/20 2:17 PM)[facility] [place] SPHPEZZJHY9896-35-44 19:17:0023.6[facility]annSPECIAL RYZJEQSCW7841-04-37 19:17:008.1[facility]- XR FOOT 2 VIEWS [id number] 13:11:00 [facility] 1945 Age[facility]S:74 /M [address] [facility] Unit#:[id number] Loc: [place] [address] Phys: Arsalan España MD Dis Date: PHONE #: [phone] Status: REG CLI FAX #: [phone] Exam Date: 03/28/2020 Re ason: DIATES EXAMS: CPT CODE: [id number] XR FOOT [address] [place] [address] HISTORY: Diabetes. COM PARISON: Elbow x-ray from November 18, 2019. Location: [facility]. AP and lateral view of the left [...] M.D. CC: Arsalan España MD Technologist: Mini West RT(R)(CT) T rnscrpt Data: 03/28/2020 (1311) Chloe.TH4 Orig Print D/ T: S: 03/28/2020 (6514) PAGE 1 Si gned Report - XR ELBOW 2 VIEWS [id number] 13:11:00 [facility] 1945 Age/S:74 /M [address] [facility] Unit#:[id number] Loc: [place] [address] Phys: Arsalan España MD Dis Date: PHONE #: [phone] Status: REG CLI FAX #: [phone] Exam Date: 03/28/2020 Reason: DIATES EXAMS: CPT CODE: [id number] XR ELB[place] [address] [place] [address] HISTORY: Diabetes. COMPARISON: Elbow x-ray from November 18, 2019. Location: [facility]. AP and lateral view of the left [...] M.D. CC: Arsalan España MD Technologist: Mini West RT(R)(CT) Trnscrpt Data: 03/28/2020 (1311) t.SDR.TH4 Orig Print D/T: S: 03/28/2020 (0583) PAGE 1 Signed Report [id number] 06:19:00* Test Item Value Reference Range Interpretation Comments GLUBED (test code = GLUBED) 98 mg/dL 74-106 N Performed by certified head operator at [facility] SUIVGU9442-02-15 20:32:00* Test Item Value Reference Range Interpretation Comments GLUBED (test code = GLUBED) 122 mg/dL 74-106 H Performed by certified head operator at [facility] MFXVOM7945-90-52 17:02:00* Test Item Value Reference Range Interpretation Comments GLUBED (test code = GLUBED) 193 mg/dL 74-106 H Performed by certified head operator at [facility] FVGMRN2631-91-79 17:02:00* Test Item Value Reference Range Interpretation Comments GLUBED (test code = GLUBED) 109 mg/dL 74-106 H Performed by certified head operator at [facility] BASIC METABOLIC [id number] 07:37:00* Test Item Value Reference Range Interpretation [...] code = CA) 9.6 mg/dL 8.5-10.1 N EHEZRBEAN6997-93-55 07:37:00* Test Item Value Reference Range Interpretation Comments MAGNESIUM (test code = MAG) 2.4 mg/dL 1.8-2.4 N BASIC METABOLIC [id number] 06:36:00* Test Item Value Reference Range Interpretation [...] code = CA) 9.6 mg/dL 8.5-10.1 N CLZIKVIPH6201-65-54 06:36:00* Test Item Value Reference Range Interpretation Comments MAGNESIUM (test code = MAG) 2.4 mg/dL 1.8-2.4 N IKFUWB4700-04-08 05:52:00* Test Item Value Reference Range Interpretation Comments GLUBED (test code = GLUBED) 99 mg/dL 74-106 N Performed by certified head operator at [facility] AXPUGY0925-23-60 05:25:00* Test Item Value Reference Range Interpretation Comments GLUBED (test code = GLUBED) 86 mg/dL 74-106 N Performed by certified head operator at [facility] - XR FOOT 2 VIEWS [id number] 18:31:00 FAX: Rosalie Weathers MD [place]: B St: ADM FAX: Teofilo Poon MD [phone] FAX: Sofia León NP [phone] Name: STEVE BENEDICT [facility] : 1945 Age/S: 74/M [address] [facility] Unit #: [id number] Loc: [address] [place] [address] Phys: Sofia León NP Acct: [id number] Dis Date: Status: ADM IN ONE #: [phone] Exam Date: 11/29/2019 1742 FAX #: [phone] Reason: PAIN/SWELLING/REDNESS EXAMS: CPT CODE: [id number] XR FOOT [address] [place] [address] REASON FOR EXAM: PAIN/SWELLING/REDNESS EXAM ORDER DATE: 11/29/2019 5:26 PM Ordering: Sofia León NP Attending:Rosalie Short MD Location:[facility] PROCEDURE: - XR FOOT 2 VIEWS LT [...] Summers MD; Sofia León NP Technologist: Avis Ramirez(Kriss) Trnscrd Date/Time/By: 11/29/19 20 (1830) : By: DustinL Orig Print D/T: S: 11/29/2019 (1833) PAGE 1 Signed Report [id number] 17:02:00* Test Item Value Reference Range Interpretation Comments GLUBED (test code = GLUBED) 100 mg/dL 74-106 N Performed by certified head operator at [facility] [id number] 15:30:00* Test Item Value Reference Range Interpretation Comments GLUBED (test code = GLUBED) 124 mg/dL 74-106 H Performed by certified head operator at [facility] [id number] 07:13:00* Test Item Value Reference Range Interpretation Comments GLUBED (test code = GLUBED) 89 mg/dL 74-106 N Performed by certified head operator at [facility] [id number] 21:29:00* Test Item Value Reference Range Interpretation Comments GLUBED (test code = GLUBED) 114 mg/dL 74-106 H Performed by certified head operator at [facility] OGJFYQ8621-29-02 18:21:00* Test Item Value Reference Range Interpretation Comments GLUBED (test code = GLUBED) 143 mg/dL 74-106 H Performed by certified head operator at [facility] [id number] 12:47:00* Test Item Value Reference Range Interpretation Comments GLUBED (test code = GLUBED) 101 mg/dL 74-106 N Performed by certified head operator at [facility] [id number] 09:08:00* Test Item Value Reference Range Interpretation Comments GLUBED (test code = GLUBED) 218 mg/dL 74-106 H Performed by certified head operator at [facility] BASIC METABOLIC [id number] 07:42:00* Test Item Value Reference Range Interpretation [...] code = CA) 9.9 mg/dL 8.5-10.1 N [id number] 07:02:00* Test Item Value Reference Range Interpretation Comments GLUBED (test code = GLUBED) 220 mg/dL 74-106 H Performed by certified head operator at [facility] [id number] 07:02:00* Test Item Value Reference Range Interpretation Comments GLUBED (test code = GLUBED) 44 mg/dL 74-106 LL [facility] Protocol~ [id number] 07:02:00* Test Item Value Reference Range Interpretation Comments GLUBED (test code = GLUBED) 25 mg/dL 74-106 LL Test performed as P.O.C. by nursing staff.Performed by certified head operator at [facility] [id number] 07:02:00* Test Item Value Reference Range Interpretation Comments GLUBED (test code = GLUBED) 36 mg/dL 74-106 LL Performed by certified head operator at [facility] [id number] 07:02:00* Test Item Value Reference Range Interpretation Comments GLUBED (test code = GLUBED) 46 mg/dL 74-106 LL [facility] BASIC METABOLIC [id number] 06:56:00* Test Item Value Reference Range Interpretation [...] CA) 9.9 mg/dL 8.5-10.1 N BASIC METABOLIC [id number] 06:48:00* Test Item Value Reference Range Interpretation [...] code = CA) mg/dL 8.5-10.1 CBC W/AUTO [id number] 06:48:00* Test Item Value Reference Range Interpretation [...] = MDIFF) NO, ONLY SCAN NEEDED DIFFERENTIAL [id number] 06:48:00* Test Item Value Reference Range Interpretation [...] (test code = PLTMORPH) NORMAL CBC W/AUTO [id number] 06:19:00* Test Item Value Reference Range Interpretation [...] = MDIFF) NO, ONLY SCAN NEEDED DIFFERENTIAL [id number] 06:19:00* Test Item Value Reference Range Interpretation Comments STAIN ACCEPTABILITY (test code = STN ACCEPTABLE) CABOT RINGS (test code = CAB) MORPHOLOGY COMMENT (test code = MOC) PLATELET ESTIMATE (test code = PLTEST) PLATELET MORPHOLOGY (test code = PLTMORPH) CBC W/AUTO [id number] 06:19:00* Test Item Value Reference Range Interpretation [...] = MDIFF) NO, ONLY SCAN NEEDED DIFFERENTIAL [id number] 06:19:00* Test Item Value Reference Range Interpretation Comments STAIN ACCEPTABILITY (test code = STN ACCEPTABLE) CABOT RINGS (test code = CAB) MORPHOLOGY COMMENT (test code = MOC) PLATELET ESTIMATE (test code = PLTEST) PLATELET MORPHOLOGY (test code = PLTMORPH) CBC W/AUTO [id number] 06:19:00* Test Item Value Reference Range Interpretation [...] = MDIFF) NO, ONLY SCAN NEEDED DIFFERENTIAL [id number] 06:19:00* Test Item Value Reference Range Interpretation Comments STAIN ACCEPTABILITY (test code = STN ACCEPTABLE) MORPHOLOGY COMMENT (test code = MOC) PLATELET ESTIMATE (test code = PLTEST) PLATELET MORPHOLOGY (test code = PLTMORPH) CBC W/AUTO [id number] 06:19:00* Test Item Value Reference Range Interpretation [...] = MDIFF) NO, ONLY SCAN NEEDED DIFFERENTIAL [id number] 06:19:00* Test Item Value Reference Range Interpretation Comments STAIN ACCEPTABILITY (test code = STN ACCEPTABLE) CABOT RINGS (test code = CAB) MORPHOLOGY COMMENT (test code = MOC) PLATELET ESTIMATE (test code = PLTEST) PLATELET MORPHOLOGY (test code = PLTMORPH) [id number] 22:06:00* Test Item Value Reference Range Interpretation Comments GLUBED (test code = GLUBED) 146 mg/dL 74-106 H Performed by certified head operator at [facility] [id number] 16:54:00* Test Item Value Reference Range Interpretation Comments GLUBED (test code = GLUBED) 143 mg/dL 74-106 H Performed by certified head operator at [facility] [id number] 12:27:00* Test Item Value Reference Range Interpretation Comments GLUBED (test code = GLUBED) 121 mg/dL 74-106 H Performed by certified head operator at [facility] [id number] 10:32:00* Test Item Value Reference Range Interpretation Comments GLUBED (test code = GLUBED) 64 mg/dL 74-106 L Performed by certified head operator at [facility] [id number] 07:13:00* Test Item Value Reference Range Interpretation Comments GLUBED (test code = GLUBED) 132 mg/dL 74-106 H Performed by certified head operator at [facility] BASIC METABOLIC [id number] 06:43:00* Test Item Value Reference Range Interpretation [...] CA) 9.5 mg/dL 8.5-10.1 N BASIC METABOLIC [id number] 06:39:00* Test Item Value Reference Range Interpretation [...] CALCIUM (test code = CA) mg/dL 8.5-10.1 [id number] 22:22:00* Test Item Value Reference Range Interpretation Comments GLUBED (test code = GLUBED) 136 mg/dL 74-106 H Performed by certified head operator at [facility] [id number] 17:04:00* Test Item Value Reference Range Interpretation Comments GLUBED (test code = GLUBED) 196 mg/dL 74-106 H Performed by certified head operator at [facility] [id number] 14:42:00* Test Item Value Reference Range Interpretation Comments MAGNESIUM (test code = MAG) 2.2 mg/dL 1.8-2.4 N [id number] 12:42:00* Test Item Value Reference Range Interpretation Comments GLUBED (test code = GLUBED) 128 mg/dL 74-106 H Performed by certified head operator at [facility] BASIC METABOLIC [id number] 07:40:00* Test Item Value Reference Range Interpretation [...] CA) 8.4 mg/dL 8.5-10.1 L BASIC METABOLIC [id number] 07:31:00* Test Item Value Reference Range Interpretation [...] CALCIUM (test code = CA) mg/dL 8.5-10.1 [id number] 06:15:00* Test Item Value Reference Range Interpretation Comments GLUBED (test code = GLUBED) 153 mg/dL 74-106 H Performed by certified head operator at [facility] [id number] 20:40:00* Test Item Value Reference Range Interpretation Comments GLUBED (test code = GLUBED) 150 mg/dL 74-106 H Performed by certified head operator at [facility] [id number] 17:55:00* Test Item Value Reference Range Interpretation Comments GLUBED (test code = GLUBED) 133 mg/dL 74-106 H Performed by certified head operator at [facility] [id number] 14:38:00* Test Item Value Reference Range Interpretation Comments GLUBED (test code = GLUBED) 153 mg/dL 74-106 H Performed by certified head operator at [facility] BASIC METABOLIC [id number] 07:10:00* Test Item Value Reference Range Interpretation [...] CA) 8.2 mg/dL 8.5-10.1 L BASIC METABOLIC [id number] 07:05:00* Test Item Value Reference Range Interpretation [...] CALCIUM (test code = CA) mg/dL 8.5-10.1 [id number] 06:32:00* Test Item Value Reference Range Interpretation Comments GLUBED (test code = GLUBED) 120 mg/dL 74-106 H Performed by certified head operator at [facility] CBC W/AUTO [id number] 04:46:00* Test Item Value Reference Range Interpretation [...] = MDIFF) NO, ONLY SCAN NEEDED DIFFERENTIAL [id number] 04:46:00* Test Item Value Reference Range Interpretation Comments STAIN ACCEPTABILITY (test code = STN ACCEPTABLE) STAIN ACCEPTABLE POLYCHROMASIA (test code = POLC) 1+ BASOPHILIC STIPPLING (test code = STP) 1+ ANISOCYTOSIS (test code = ANISO) 2+ MICROCYTOSIS (test code = MICR) 2+ PLATELET ESTIMATE (test code = PLTEST) ADEQUATE PLATELET MORPHOLOGY (test code = PLTMORPH) NORMAL BASIC METABOLIC [id number] 04:40:00* Test Item Value Reference Range Interpretation [...] CA) 8.4 mg/dL 8.5-10.1 L BASIC METABOLIC [id number] 04:33:00* Test Item Value Reference Range Interpretation [...] code = CA) mg/dL 8.5-10.1 CBC W/AUTO [id number] 04:26:00* Test Item Value Reference Range Interpretation [...] = MDIFF) NO, ONLY SCAN NEEDED DIFFERENTIAL [id number] 04:26:00* Test Item Value Reference Range Interpretation Comments STAIN ACCEPTABILITY (test code = STN ACCEPTABLE) CABOT RINGS (test code = CAB) MORPHOLOGY COMMENT (test code = MOC) PLATELET ESTIMATE (test code = PLTEST) PLATELET MORPHOLOGY (test code = PLTMORPH) CBC W/AUTO [id number] 04:26:00* Test Item Value Reference Range Interpretation [...] = MDIFF) NO, ONLY SCAN NEEDED DIFFERENTIAL [id number] 04:26:00* Test Item Value Reference Range Interpretation Comments STAIN ACCEPTABILITY (test code = STN ACCEPTABLE) CABOT RINGS (test code = CAB) MORPHOLOGY COMMENT (test code = MOC) PLATELET ESTIMATE (test code = PLTEST) PLATELET MORPHOLOGY (test code = PLTMORPH) CBC W/AUTO [id number] 04:26:00* Test Item Value Reference Range Interpretation [...] = MDIFF) NO, ONLY SCAN NEEDED DIFFERENTIAL [id number] 04:26:00* Test Item Value Reference Range Interpretation Comments STAIN ACCEPTABILITY (test code = STN ACCEPTABLE) MORPHOLOGY COMMENT (test code = MOC) PLATELET ESTIMATE (test code = PLTEST) PLATELET MORPHOLOGY (test code = PLTMORPH) CBC W/AUTO [id number] 04:26:00* Test Item Value Reference Range Interpretation [...] = MDIFF) NO, ONLY SCAN NEEDED DIFFERENTIAL [id number] 04:26:00* Test Item Value Reference Range Interpretation Comments STAIN ACCEPTABILITY (test code = STN ACCEPTABLE) CABOT RINGS (test code = CAB) MORPHOLOGY COMMENT (test code = MOC) PLATELET ESTIMATE (test code = PLTEST) PLATELET MORPHOLOGY (test code = PLTMORPH) [id number] 20:04:00* Test Item Value Reference Range Interpretation Comments GLUBED (test code = GLUBED) 118 mg/dL 74-106 H Performed by certified head operator at [facility] [id number] 16:46:00* Test Item Value Reference Range Interpretation Comments GLUBED (test code = GLUBED) 123 mg/dL 74-106 H Performed by certified head operator at [facility] [id number] 12:44:00* Test Item Value Reference Range Interpretation Comments GLUBED (test code = GLUBED) 98 mg/dL 74-106 N Performed by certified head operator at [facility] BASIC METABOLIC [id number] 09:25:00* Test Item Value Reference Range Interpretation [...] CA) 8.1 mg/dL 8.5-10.1 L BASIC METABOLIC [id number] 09:22:00* Test Item Value Reference Range Interpretation [...] CALCIUM (test code = CA) mg/dL 8.5-10.1 [id number] 07:41:00* Test Item Value Reference Range Interpretation Comments GLUBED (test code = GLUBED) 189 mg/dL 74-106 H Performed by certified head operator at [facility] [id number] 07:41:00* Test Item Value Reference Range Interpretation Comments GLUBED (test code = GLUBED) 24 mg/dL 74-106 LL Test performed as P.O.C. by nursing staff.Performed by certified head operator at [facility] LACTIC [id number] 23:39:00* Test Item Value Reference Range Interpretation Comments LACTIC ACID (test code = LACT) 1.8 mmol/L 0.4-1.9 N [id number] 23:25:00* Test Item Value Reference Range Interpretation Comments POTASSIUM (test code = K) 3.8 mmol/L 3.5-5.1 N [id number] 23:25:00* Test Item Value Reference Range Interpretation Comments MAGNESIUM (test code = MAG) 2.0 mg/dL 1.8-2.4 N [id number] 23:24:00* Test Item Value Reference Range Interpretation Comments POTASSIUM (test code = K) 3.8 mmol/L 3.5-5.1 N [id number] 23:24:00* Test Item Value Reference Range Interpretation Comments MAGNESIUM (test code = MAG) mg/dL 1.8-2.4 CBC W/AUTO [id number] 06:16:00* Test Item Value Reference Range Interpretation [...] = MDIFF) NO, ONLY SCAN NEEDED DIFFERENTIAL [id number] 06:16:00* Test Item Value Reference Range Interpretation Comments STAIN ACCEPTABILITY (test code = STN ACCEPTABLE) STAIN ACCEPTABLE ANISOCYTOSIS (test code = ANISO) 1+ MICROCYTOSIS (test code = MICR) 1+ PLATELET ESTIMATE (test code = PLTEST) DECREASED PLATELET MORPHOLOGY (test code = PLTMORPH) NORMAL BASIC METABOLIC [id number] 05:59:00* Test Item Value Reference Range Interpretation [...] code = CA) 8.2 mg/dL 8.5-10.1 L [id number] 05:59:00* Test Item Value Reference Range Interpretation Comments MAGNESIUM (test code = MAG) 2.2 mg/dL 1.8-2.4 N BASIC METABOLIC [id number] 05:54:00* Test Item Value Reference Range Interpretation [...] CALCIUM (test code = CA) mg/dL 8.5-10.1 [id number] 05:54:00* Test Item Value Reference Range Interpretation Comments MAGNESIUM (test code = MAG) mg/dL 1.8-2.4 CBC W/AUTO [id number] 05:49:00* Test Item Value Reference Range Interpretation [...] = MDIFF) NO, ONLY SCAN NEEDED DIFFERENTIAL [id number] 05:49:00* Test Item Value Reference Range Interpretation Comments STAIN ACCEPTABILITY (test code = STN ACCEPTABLE) CABOT RINGS (test code = CAB) MORPHOLOGY COMMENT (test code = MOC) PLATELET ESTIMATE (test code = PLTEST) PLATELET MORPHOLOGY (test code = PLTMORPH) CBC W/AUTO [id number] 05:49:00* Test Item Value Reference Range Interpretation [...] = MDIFF) NO, ONLY SCAN NEEDED DIFFERENTIAL [id number] 05:49:00* Test Item Value Reference Range Interpretation Comments STAIN ACCEPTABILITY (test code = STN ACCEPTABLE) CABOT RINGS (test code = CAB) MORPHOLOGY COMMENT (test code = MOC) PLATELET ESTIMATE (test code = PLTEST) PLATELET MORPHOLOGY (test code = PLTMORPH) CBC W/AUTO [id number] 05:49:00* Test Item Value Reference Range Interpretation [...] = MDIFF) NO, ONLY SCAN NEEDED DIFFERENTIAL [id number] 05:49:00* Test Item Value Reference Range Interpretation Comments STAIN ACCEPTABILITY (test code = STN ACCEPTABLE) MORPHOLOGY COMMENT (test code = MOC) PLATELET ESTIMATE (test code = PLTEST) PLATELET MORPHOLOGY (test code = PLTMORPH) CBC W/AUTO [id number] 05:49:00* Test Item Value Reference Range Interpretation [...] = MDIFF) NO, ONLY SCAN NEEDED DIFFERENTIAL [id number] 05:49:00* Test Item Value Reference Range Interpretation Comments STAIN ACCEPTABILITY (test code = STN ACCEPTABLE) CABOT RINGS (test code = CAB) MORPHOLOGY COMMENT (test code = MOC) PLATELET ESTIMATE (test code = PLTEST) PLATELET MORPHOLOGY (test code = PLTMORPH) - XR ABDOMEN AP 1 [id number] 22:21:00 FAX: Rosalie Weathers MD [place]: St: ADM FAX: Teofilo Poon MD [phone] FAX: Sofia León NP [phone] Name: STEVE BENEDICT [facility] : 1945 Age/S: 74/M [address] [facility] Unit #: [id number] Loc: [address] [place] [address] Phys: Sofia León NP Acct: [id number] Dis Date: Status: ADM IN ONE #: [phone] Exam Date: 11/22/2019 180 FAX #: [phone] Reason: abdominal pain EXAMS: CPT CODE: [id number] XR ABDOMEN AP 1 V 78422 EXAM: Abdomen, 2 views; INFORMATION: Abdominal pain; IMPRESSION: 1. Large amount of stool in the descending transverse and proximal descending colon; 2. Otherwise, unremarkable bowel gas pattern; no e vidence of obstruction or other acute abnormalities. 3. No abnor mal calcifications. Location code: [facility] El ectronically Signed by Elroy Huff on 11/22 at 2221 Reported and signed by: Isaiah Huff M.D. CC: Rosalie Short; Teofilo Summers MD; Sofia Saavedra NP Technologist: RT Caryl(R Trnscrd Date/Time/By: 11/22/2019 (222) : By: Cathie Orig Print D/T: S: 11/22/2019 (9764) PAGE 1 Signed Report [id number] 16:22:00* Test Item Value Reference Range Interpretation Comments GLUBED (test code = GLUBED) 101 mg/dL 74-106 N [facility] [id number] 12:23:00* Test Item Value Reference Range Interpretation Comments GLUBED (test code = GLUBED) 106 mg/dL 74-106 N Performed by certified head operator at [facility] [id number] 08:34:00* Test Item Value Reference Range Interpretation Comments GLUBED (test code = GLUBED) 75 mg/dL 74-106 N Performed by certified head operator at [facility] BLOOD UREA [id number] 05:39:00* Test Item Value Reference Range Interpretation Comments BLOOD UREA NITROGEN (test code = BUN) 39 mg/dL 7-18 H [id number] 05:39:00* Test Item Value Reference Range Interpretation Comments CREATININE (test code = CREAT) 1.40 mg/dL 0.7-1.3 H BLOOD UREA [id number] 05:34:00* Test Item Value Reference Range Interpretation Comments BLOOD UREA NITROGEN (test code = BUN) 39 mg/dL 7-18 H [id number] 05:34:00* Test Item Value Reference Range Interpretation Comments CREATININE (test code = CREAT) mg/dL 0.7-1.3 [id number] 21:18:00* Test Item Value Reference Range Interpretation Comments GLUBED (test code = GLUBED) 143 mg/dL 74-106 H Performed by certified head operator at [facility] [id number] 16:14:00* Test Item Value Reference Range Interpretation Comments GLUBED (test code = GLUBED) 120 mg/dL 74-106 H Performed by certified head operator at [facility] [id number] 16:14:00* Test Item Value Reference Range Interpretation Comments GLUBED (test code = GLUBED) 123 mg/dL 74-106 H Performed by certified head operator at [facility] [id number] 08:04:00* Test Item Value Reference Range Interpretation Comments GLUBED (test code = GLUBED) 122 mg/dL 74-106 H Performed by certified head operator at [facility] BASIC METABOLIC [id number] 06:42:00* Test Item Value Reference Range Interpretation [...] CA) 8.7 mg/dL 8.5-10.1 N BASIC METABOLIC [id number] 06:37:00* Test Item Value Reference Range Interpretation [...] code = CA) mg/dL 8.5-10.1 CBC W/AUTO [id number] 06:33:00* Test Item Value Reference Range Interpretation [...] = MDIFF) NO, ONLY SCAN NEEDED DIFFERENTIAL [id number] 06:33:00* Test Item Value Reference Range Interpretation Comments STAIN ACCEPTABILITY (test code = STN ACCEPTABLE) STAIN ACCEPTABLE POLYCHROMASIA (test code = POLC) 1+ POIKILOCYTOSIS (test code = POIK) 1+ ANISOCYTOSIS (test code = ANISO) 1+ MICROCYTOSIS (test code = MICR) 1+ ELLIPTOCYTES (test code = ELL) 1+ PLATELET ESTIMATE (test code = PLTEST) ADEQUATE PLATELET MORPHOLOGY (test code = PLTMORPH) NORMAL CBC W/AUTO [id number] 06:13:00* Test Item Value Reference Range Interpretation [...] = MDIFF) NO, ONLY SCAN NEEDED DIFFERENTIAL [id number] 06:13:00* Test Item Value Reference Range Interpretation Comments STAIN ACCEPTABILITY (test code = STN ACCEPTABLE) CABOT RINGS (test code = CAB) MORPHOLOGY COMMENT (test code = MOC) PLATELET ESTIMATE (test code = PLTEST) PLATELET MORPHOLOGY (test code = PLTMORPH) CBC W/AUTO [id number] 06:13:00* Test Item Value Reference Range Interpretation [...] = MDIFF) NO, ONLY SCAN NEEDED DIFFERENTIAL [id number] 06:13:00* Test Item Value Reference Range Interpretation Comments STAIN ACCEPTABILITY (test code = STN ACCEPTABLE) MORPHOLOGY COMMENT (test code = MOC) PLATELET ESTIMATE (test code = PLTEST) PLATELET MORPHOLOGY (test code = PLTMORPH) CBC W/AUTO [id number] 06:12:00* Test Item Value Reference Range Interpretation [...] = MDIFF) NO, ONLY SCAN NEEDED DIFFERENTIAL [id number] 06:12:00* Test Item Value Reference Range Interpretation Comments STAIN ACCEPTABILITY (test code = STN ACCEPTABLE) CABOT RINGS (test code = CAB) MORPHOLOGY COMMENT (test code = MOC) PLATELET ESTIMATE (test code = PLTEST) PLATELET MORPHOLOGY (test code = PLTMORPH) CBC W/AUTO [id number] 06:12:00* Test Item Value Reference Range Interpretation [...] = MDIFF) NO, ONLY SCAN NEEDED DIFFERENTIAL [id number] 06:12:00* Test Item Value Reference Range Interpretation Comments STAIN ACCEPTABILITY (test code = STN ACCEPTABLE) CABOT RINGS (test code = CAB) MORPHOLOGY COMMENT (test code = MOC) PLATELET ESTIMATE (test code = PLTEST) PLATELET MORPHOLOGY (test code = PLTMORPH) [id number] 04:54:00* Test Item Value Reference Range Interpretation Comments GLUBED (test code = GLUBED) 124 mg/dL 74-106 H Performed by certified head operator at [facility] [id number] 21:26:00* Test Item Value Reference Range Interpretation Comments GLUBED (test code = GLUBED) 193 mg/dL 74-106 H Performed by certified head operator at [facility] [id number] 17:23:00* Test Item Value Reference Range Interpretation Comments GLUBED (test code = GLUBED) 159 mg/dL 74-106 H Performed by certified head operator at [facility] [id number] 13:36:00* Test Item Value Reference Range Interpretation Comments GLUBED (test code = GLUBED) 145 mg/dL 74-106 H Performed by certified head operator at [facility] [id number] 08:14:00* Test Item Value Reference Range Interpretation Comments GLUBED (test code = GLUBED) 89 mg/dL 74-106 N Performed by certified head operator at [facility] CBC W/AUTO [id number] 06:16:00* Test Item Value Reference Range Interpretation [...] = MDIFF) NO, ONLY SCAN NEEDED DIFFERENTIAL [id number] 06:16:00* Test Item Value Reference Range Interpretation Comments STAIN ACCEPTABILITY (test code = STN ACCEPTABLE) STAIN ACCEPTABLE POLYCHROMASIA (test code = POLC) 1+ POIKILOCYTOSIS (test code = POIK) 1+ ANISOCYTOSIS (test code = ANISO) 2+ MICROCYTOSIS (test code = MICR) 2+ OVALOCYTES (test code = OVAL) 1+ PLATELET ESTIMATE (test code = PLTEST) ADEQUATE PLATELET MORPHOLOGY (test code = PLTMORPH) NORMAL BASIC METABOLIC [id number] 06:16:00* Test Item Value Reference Range Interpretation [...] CA) 8.3 mg/dL 8.5-10.1 L BASIC METABOLIC [id number] 06:06:00* Test Item Value Reference Range Interpretation [...] code = CA) mg/dL 8.5-10.1 CBC W/AUTO [id number] 05:46:00* Test Item Value Reference Range Interpretation [...] = MDIFF) NO, ONLY SCAN NEEDED DIFFERENTIAL [id number] 05:46:00* Test Item Value Reference Range Interpretation Comments STAIN ACCEPTABILITY (test code = STN ACCEPTABLE) CABOT RINGS (test code = CAB) MORPHOLOGY COMMENT (test code = MOC) PLATELET ESTIMATE (test code = PLTEST) PLATELET MORPHOLOGY (test code = PLTMORPH) CBC W/AUTO [id number] 05:46:00* Test Item Value Reference Range Interpretation [...] = MDIFF) NO, ONLY SCAN NEEDED DIFFERENTIAL [id number] 05:46:00* Test Item Value Reference Range Interpretation Comments STAIN ACCEPTABILITY (test code = STN ACCEPTABLE) MORPHOLOGY COMMENT (test code = MOC) PLATELET ESTIMATE (test code = PLTEST) PLATELET MORPHOLOGY (test code = PLTMORPH) CBC W/AUTO [id number] 05:45:00* Test Item Value Reference Range Interpretation [...] = MDIFF) NO, ONLY SCAN NEEDED DIFFERENTIAL [id number] 05:45:00* Test Item Value Reference Range Interpretation Comments STAIN ACCEPTABILITY (test code = STN ACCEPTABLE) CABOT RINGS (test code = CAB) MORPHOLOGY COMMENT (test code = MOC) PLATELET ESTIMATE (test code = PLTEST) PLATELET MORPHOLOGY (test code = PLTMORPH) CBC W/AUTO [id number] 05:45:00* Test Item Value Reference Range Interpretation [...] = MDIFF) NO, ONLY SCAN NEEDED DIFFERENTIAL [id number] 05:45:00* Test Item Value Reference Range Interpretation Comments STAIN ACCEPTABILITY (test code = STN ACCEPTABLE) CABOT RINGS (test code = CAB) MORPHOLOGY COMMENT (test code = MOC) PLATELET ESTIMATE (test code = PLTEST) PLATELET MORPHOLOGY (test code = PLTMORPH) [id number] 20:52:00* Test Item Value Reference Range Interpretation Comments GLUBED (test code = GLUBED) 128 mg/dL 74-106 H Performed by certified head operator at [facility] [id number] 18:34:00* Test Item Value Reference Range Interpretation Comments GLUBED (test code = GLUBED) 118 mg/dL 74-106 H Performed by certified head operator at [facility] [id number] 18:34:00* Test Item Value Reference Range Interpretation Comments GLUBED (test code = GLUBED) 100 mg/dL 74-106 N Performed by certified head operator at [facility] [id number] 08:41:00* Test Item Value Reference Range Interpretation Comments GLUBED (test code = GLUBED) 108 mg/dL 74-106 H Performed by certified head operator at [facility] CBC W/AUTO [id number] 06:21:00* Test Item Value Reference Range Interpretation [...] = MDIFF) NO, ONLY SCAN NEEDED DIFFERENTIAL [id number] 06:21:00* Test Item Value Reference Range Interpretation Comments STAIN ACCEPTABILITY (test code = STN ACCEPTABLE) STAIN ACCEPTABLE ANISOCYTOSIS (test code = ANISO) 1+ MICROCYTOSIS (test code = MICR) 1+ PLATELET ESTIMATE (test code = PLTEST) ADEQUATE PLATELET MORPHOLOGY (test code = PLTMORPH) NORMAL BASIC METABOLIC [id number] 05:30:00* Test Item Value Reference Range Interpretation [...] This LDL result is a direct measurement.========= [id number] 05:30:00* Test Item Value Reference Range Interpretation Comments PHOSPHORUS (test code = PHOS) 1.9 mg/dL 2.5-4.9 L [id number] 05:30:00* Test Item Value Reference Range Interpretation Comments MAGNESIUM (test code = MAG) 2.5 mg/dL 1.8-2.4 H THYROID STIMULATING [id number] 05:30:00* Test Item Value Reference Range Interpretation Comments THYROID STIMULATING HORMONE (test code = TSH) 5.000 uIU/mL 0.36-3.7 4 H TSH REFERENCE RANGES: EUTHYROID: 0.35 - 4.3 mIU/mL HYPO : > 5.5 mIU/mL HYPER : < 0.35 mIU/mL B-TYPE NATRIURETIC [id number] 05:27:00* Test Item Value Reference Range Interpretation Comments B-TYPE NATRIURETIC PEPTIDE (test code = BNP) 112.32 pgram/mL 0-100 H CBC W/AUTO [id number] 05:27:00* Test Item Value Reference Range Interpretation [...] = MDIFF) NO, ONLY SCAN NEEDED DIFFERENTIAL [id number] 05:27:00* Test Item Value Reference Range Interpretation Comments STAIN ACCEPTABILITY (test code = STN ACCEPTABLE) STAIN ACCEPTABLE ANISOCYTOSIS (test code = ANISO) 1+ MICROCYTOSIS (test code = MICR) 1+ MORPHOLOGY COMMENT (test code = MOC) NORMAL PLATELET ESTIMATE (test code = PLTEST) ADEQUATE PLATELET MORPHOLOGY (test code = PLTMORPH) NORMAL BASIC METABOLIC [id number] 05:15:00* Test Item Value Reference Range Interpretation [...] LDL (test code = LDL) mg/dL 100-129 [id number] 05:15:00* Test Item Value Reference Range Interpretation Comments PHOSPHORUS (test code = PHOS) mg/dL 2.5-4.9 [id number] 05:15:00* Test Item Value Reference Range Interpretation Comments MAGNESIUM (test code = MAG) mg/dL 1.8-2.4 THYROID STIMULATING [id number] 05:15:00* Test Item Value Reference Range Interpretation Comments THYROID STIMULATING HORMONE (test code = TSH) uIU/mL 0.36-3.7 4 [id number] 05:08:00* Test Item Value Reference Range Interpretation Comments GLYCOSYLATED HEMOGLOBIN (HA1C) (test code = GLYHGB) 6.9 % HbA1 SUGGESTED DIAGNOSIS: HbA1C (%) Diabetic >6.4Prediabetes 5.7 - 6.4Normal <5.7 ESTIMATED AVERAGE GLUCOSE (test code = EAG) 151 MG/DL CBC W/AUTO [id number] 04:59:00* Test Item Value Reference Range Interpretation [...] = MDIFF) NO, ONLY SCAN NEEDED DIFFERENTIAL [id number] 04:59:00* Test Item Value Reference Range Interpretation Comments STAIN ACCEPTABILITY (test code = STN ACCEPTABLE) CABOT RINGS (test code = CAB) MORPHOLOGY COMMENT (test code = MOC) PLATELET ESTIMATE (test code = PLTEST) PLATELET MORPHOLOGY (test code = PLTMORPH) CBC W/AUTO [id number] 04:59:00* Test Item Value Reference Range Interpretation [...] = MDIFF) NO, ONLY SCAN NEEDED DIFFERENTIAL [id number] 04:59:00* Test Item Value Reference Range Interpretation Comments STAIN ACCEPTABILITY (test code = STN ACCEPTABLE) CABOT RINGS (test code = CAB) MORPHOLOGY COMMENT (test code = MOC) PLATELET ESTIMATE (test code = PLTEST) PLATELET MORPHOLOGY (test code = PLTMORPH) CBC W/AUTO [id number] 04:59:00* Test Item Value Reference Range Interpretation [...] = MDIFF) NO, ONLY SCAN NEEDED DIFFERENTIAL [id number] 04:59:00* Test Item Value Reference Range Interpretation Comments STAIN ACCEPTABILITY (test code = STN ACCEPTABLE) MORPHOLOGY COMMENT (test code = MOC) PLATELET ESTIMATE (test code = PLTEST) PLATELET MORPHOLOGY (test code = PLTMORPH) CBC W/AUTO [id number] 04:58:00* Test Item Value Reference Range Interpretation [...] = MDIFF) NO, ONLY SCAN NEEDED DIFFERENTIAL [id number] 04:58:00* Test Item Value Reference Range Interpretation Comments STAIN ACCEPTABILITY (test code = STN ACCEPTABLE) CABOT RINGS (test code = CAB) MORPHOLOGY COMMENT (test code = MOC) PLATELET ESTIMATE (test code = PLTEST) PLATELET MORPHOLOGY (test code = PLTMORPH) [id number] 20:45:00* Test Item Value Reference Range Interpretation Comments GLUBED (test code = GLUBED) 181 mg/dL 74-106 H Performed by certified head operator at [facility] [id number] 16:47:00* Test Item Value Reference Range Interpretation Comments GLUBED (test code = GLUBED) 204 mg/dL 74-106 H Performed by certified head operator at [facility] URINALYSIS [id number] 12:34:00* Test Item Value Reference Range Interpretation [...] AMORU) MANY #/LPF Urine Source? Clean CatchURINALYSIS [id number] 12:33:00* Test Item Value Reference Range Interpretation [...] BACU) per HPF NONE Urine Source? Clean [id number] 11:40:00* Test Item Value Reference Range Interpretation Comments GLUBED (test code = GLUBED) 124 mg/dL 74-106 H Performed by certified head operator at [facility] - XR ELBOW 3 + V [id number] 07:29:00 FAX: Teofilo Poon MD [phone] [place]: St: [facility] FAX: Alejandro Powers DO Name: STEVE BENEDICT [facility] : 1945 Age/S: 74/M [address] [facility] Unit #: [id number] Loc: [place] [address] Phys: Alejandro Powers DO Acct: [id number] Dis Date: Status: REG ER PHONE #: [phone] Exam Date: 11/18/2019 0655 FAX #: [phone] Reason: pain EXAMS: CPT CODE: [id number] XR ELBOW 3 + V LT [address] HISTORY: Pain. COMPARISON: May 05, 2019. Location: TH. Moderate soft tissue swelling along the olecranon process suggesting olecranon bursitis. No acute fracture or dislocation. No elbow joint fluid is noted. Mineralization is normal. IMPRESSION: No acute fracture or dislocation or joint fluid. Moderate soft tissue swelling along the olecranon process suggestive of olecranon bursitis. at 0729 Reported and signed by: Tyler Subramanian M.D. CC: Teofilo Summers MD; Alejandro Powers DO Technologist: Colette Ramirez(Kriss) Trnscrd Date/Time/By: 11/18/2019 (0729) : By: [email or web address] Orig Print D /T: S: 11/18/2019 (0929) PAGE 1 S igned Report - CT C-SPINE W/O [id number] 06:50:00 [facility] 1945 Age[facility]S: 74 / M [address] [facility] Unit #: [id number] Loc: [place] [address] Phys: Alejandro Powers DO Acct: [id number] Dis Date: Status: REG ER PHONE #: [phone] Exam Date: 11/18/2019556 FAX #: [phone] Reason: Neck Pain EXAMS: CPT CODE: [id number] CT C-SPINE W/O CONTRAST 69603 DICTATION LOCATION: 8 HISTORY: Male, 74 years [...] CT CTDI: DLP: Trnscb Date/Time: 11/18/2019 (0650) Martha Orig Print D/T: S: 11/18/2019 (0653) PAGE 1 Signed Report - CT HEAD/BRAIN W/O [id number] 06:48:00 [facility] 1945 Age/S: 74 / M [address] [facility] Unit #: [id number] Loc: [place] [address] Phys: Alejandro Powers DO Acct: [id number] Dis Date: Status: REG ER PHONE #: [phone] Exam Date: 11/18/2019 0550 FAX #: [phone] Reason: HEADACHE EXAMS: CPT CODE: [id number] CT HEAD/BRAIN W/O CONT 81754 DICTATION LOCATION: H48 HISTORY: Male, 74 years [...] DEJESUS CTDI: DLP: Trnscb Date/Time: 11/18/2019 (0648) Martha jerome D/T: S: 11/18/2019 (0624) PAGE 1 Signed Report BASIC METABOLIC [id number] 06:35:00* Test Item Value Reference Range Interpretation [...] CA) 8.9 mg/dL 8.5-10.1 N HEPATIC FUNCTION [id number] 06:35:00* Test Item Value Reference Range Interpretation [...] reference range due to change in reagent. [id number]-[id number] 06:35:00* Test Item Value Reference Range Interpretation Comments TROPONIN-I (test code = TROPI) 0.018 ng/mL 0-0.045 N BASIC METABOLIC [id number] 06:24:00* Test Item Value Reference Range Interpretation [...] code = CA) mg/dL 8.5-10.1 HEPATIC FUNCTION [id number] 06:24:00* Test Item Value Reference Range Interpretation [...] TOTAL (test code = ALKP) IUnit/L 45-117 [id number]-[id number] 06:24:00* Test Item Value Reference Range Interpretation Comments TROPONIN-I (test code = TROPI) ng/mL 0-0.045 CBC W/O [id number] 06:21:00* Test Item Value Reference Range Interpretation [...] fL 6.7-11.0 N - XR CHEST 1 [id number] 05:53:00 FAX: Teofilo Poon MD [phone] [place]: [facility]: [facility] FAX: Alejandro Powers DO Name: STEVE BENEDICT [facility] : 1945 Age/S: 74/M [address] [facility] Unit #: [id number] Loc: [place] [address] Phys: Alejandro Powers DO Acct: [id number] Dis Date: Status: REG ER PHONE #: [phone] Exam Date: 11/18/2019 0538 FAX #: [phone] Reason: CHEST PAIN EXAMS: CPT CODE: [id number] XR CHEST 1 V 13121 EXAM: XR Chest 1 View INDICATION: CHEST [...] S: 11/18/2019 (0556) PAGE 1 Signed Report [id number] 17:01:00* Test Item Value Reference Range Interpretation Comments PT (test code = PT) 13.6 s 12.0-14.7 [facility] TwnmtkvEBMXCUVGHJ5261-56-65 17:01:00* Test Item Value Reference Range Interpretation Comments INR (test code = INR) 1.04 1 0.85-1.17 [facility] NvvoztwFISKYMRRVO3322-20-70 17:01:00* Test Item Value Reference Range Interpretation Comments PTT (test code = PTT) 25.1 s 22.9-35.8 [facility] [employer] [id number] 16:59:00Negative (11/10/19 10:59 AM) [employer] [id number] 16:59:00Product available (11/10/19 10:59 AM)[facility] RiverOneCHEM [id number] 16:59:35846Utsrtgmy Meta IndustriesannCHEM VLSIN4966-79-84 16:59:0049[facility] IndustriesannCHEM HAVZZ5804-48-30 16:59:001.51 [facility] IndustriesannCHEM HIOAG8672-06-26 16:59:74470Fiesmemy HermannCHEM PANEL 2019-11-10 16:59:003.4[facility] HermannCHEM YGKCH2837-77-82 16:59:0093[facility] HermannCHEM IFBUJ7721-44-46 16:59:0036[facility] HermannCHEM TTIFR8324-19-03 16:59:008.8[facility] HermannCHEM ZATVD0648-28-58 16:59:0012.4[facility] HermannCHEM JKTHZ7848-67-90 16:59:0045[facility] HermannCHEM QDCKP2091-35-25 16:59:002.1 [facility] WvxbfboCTKJXTJARJ8067-59-11 16:59:0088.7[facility] HermannHEMATOLOGY 2019-11-10 16:59:006.8[facility] QwylpocYUIBILOPQA2894-81-95 16:59:004.4[facility] OqzgqxzFTQXDQGXUH0372-41-08 16:59:000.1[facility] SqdwbpiGKISHNLBNR0930-68-65 16:59:009.3[facility] FptujkwSUQPNXZJYR2222-27-48 16:59:000.7[facility] Vivek HQBFURMQBF5341-11-89 16:59:000.5[facility] QxnpfzoYQDEQYCBHS2673-86-76 16:59:00 10.5[facility] UttdfmfFFDSZIMEKX1890-19-33 16:59:004.95[facility] HermannHEMATOLOGY 2019-11-10 16:59:0012.4[facility] MearkvgBATOSBCOSZ7222-24-54 16:59:0039.2[facility] LkggfqvAQGRLCHQHL4856-61-75 16:59:0079.2[facility] MbfimjlXBQXHEBPAL4403-64-66 16:59:00* Test Item Value Reference Range Interpretation Comments MCH (test code = MCH) 25.1 pg 27.0-31.0 [facility] YjypbusRAYAKJGLOS1208-79-14 16:59:0031.7[facility] HermannHEMATOLOGY 2019-11-10 16:59:0019.6[facility] GphhcujDDXLFCVKGU7280-69-36 16:59:18804Spmwzcma QwcdqvwHMAPRSKRTX2809-79-08 16:59:008.1[facility] HermannCHEM ZKLSL6491-55-65 00:05:12183Gjaxqmeo HermannCHEM OKGND1961-44-66 00:05:0751[facility] HermannCHEM BJZQS1075-01-33 00:05:071.65[facility] HermannCHEM VHLUS7058-69-53 00:05:69244 [facility] HermannCHEM YURGW2404-02-58 00:05:073.8[facility] HermannCHEM PANEL 2019-10-17 00:05:0799[facility] HermannCHEM TNQLW1648-39-20 00:05:0740[facility] HermannCHEM DMJMJ8962-42-48 00:05:074.8[facility] HermannCHEM KUEHU5648-59-23 00:05:079.1[facility] HermannCHEM ATCTR6707-24-69 00:05:0740[facility] [place] YLSMKOLLSG3177-60-28 00:05:078.4[facility] EsbinpkHTYWQNLDEV3171-03-99 00:05:071.5 [facility] EsybmptAEKRUEKJMZ5448-14-89 00:05:070.7[facility] HermannHEMATOLOGY 2019-10-17 00:05:0778.0[facility] XtplzrtMMHUNJRGCP1729-68-35 00:05:071.0[facility] QjtaxsmVWVENSAMCD3320-04-20 00:05:0714.0[facility] UlwoakcHIVCTUXOPZ3650-23-30 00:05:077.0[facility] KkwubzzYLTCVUDBEH9219-14-09 00:05:070.0[facility] OWTIIZPAYK3209-51-76 00:05:071[facility] NandyqoXBQSCTOLUP5270-85-60 00:05:071+ *ABN*(10/16/19 6:05 PM)[facility] FdzytiqYETBAVXVMN7090-92-34 00:05:071+ *ABN*(10/16/19 6:05 PM)[facility] YbnwgmbNXCVAVCMYY6270-38-40 00:05:07Moderate *ABN*(10/16/19 6:05 PM)[facility] LupwezsTYYBTYZNZH6812-56-48 00:05:0710.6[facility] CswkdmmHPBEQHTRNI8094-05-61 00:05:074.67[facility] IhjagscGFROUUFHVM6285-27-92 00:05:0711.5[facility] HxzfcbtGRUWSKATWJ4047-33-10 00:05:0736.7[facility] [place] UKVGKHKMOQ0365-96-13 00:05:0778.6[facility] YsijyqlNTALZUMDAE0103-98-28 00:05:07* Test Item Value Reference Range Interpretation Comments MCH (test code = MCH) 24.5 pg 27.0-31.0 [facility] ClubQgfaybfSZFKFTVOPY6460-33-60 00:05:0731.2[facility] HermannHEMATOLOGY 2019-10-17 00:05:0718.7[facility] DzgujviCHYGCYRELF5540-33-91 00:05:64028Qpcvavey GzshpshQSFJMEXALG9100-14-97 00:05:077.7[facility] PdxqxqcXBUPPBNISC2391-77-45 00:05:07* Test Item Value Reference Range Interpretation Comments PTT (test code = PTT) 26.9 s 22.9-35.8 [facility] ClubMeipvrxWNFUFWRZJK9903-27-99 00:05:07* Test Item Value Reference Range Interpretation Comments PT (test code = PT) 15.1 s 12.0-14.7 [facility] ClubGqmithiKYPZYGLRRR8806-55-95 00:05:07* Test Item Value Reference Range Interpretation Comments INR (test code = INR) 1.18 1 0.85-1.17 [facility] SINGLE (PORTABLE)2019-10-16 13:29:00 [place] [address] Patient Name: STEVE BENEDICT MR #: [id number] : 1945 Age/Sex: 74/M Req #: [id number] Adm Physician: Ordered by: RENAE MENDOZA DO Report #: [id number] Location: ER Room/Bed: Procedure: [id number] DX/CHEST SINGLE (PORTABLE) Exam Date: 10/16/19 Exam [...] 1332 COPY TO: RENAE MENDOZA DO Sodium Cgywo3863-38-10 13:15:00* Test Item Value Reference Range Interpretation Comments Sodium Level (test code = 2951-2) 137 136-145 [facility] Ttikb7424-29-59 13:15:00* Test Item Value Reference Range Interpretation Comments Potassium Level (test code = 2823-3) 4.3 3.5-5.1 [facility] HospitalChloride Niuxt3131-86-84 13:15:00* Test Item Value Reference Range Interpretation Comments Chloride Level (test code = 2075-0) 89 98-107 L [facility] HospitalCarbon Dioxide Ygsfk5667-10-22 13:15:00* Test Item Value Reference Range Interpretation Comments Carbon Dioxide Level (test code = 2028-9) 37 22-29 H [facility] HospitalAnion Qcp3446-46-06 13:15:00* Test Item Value Reference Range Interpretation Comments Anion Gap (test code = 09180-6) 15.3 8-16 [facility] Hospital[facility] Urea Mvqnvqor3157-70-25 13:15:00* Test Item Value Reference Range Interpretation Comments Blood Urea Nitrogen (test code = 3094-0) 50 7-26 H [facility] HospitalCreatinine2019-12-21 13:15:00* Test Item Value Reference Range Interpretation Comments Creatinine (test code = 2160-0) 1.74 0.72-1.25 H [facility] HospitalBUN/Creatinine Ssmqy6641-71-47 13:15:00* Test Item Value Reference Range Interpretation Comments BUN/Creatinine Ratio (test code = 3097-3) 29 6-25 H [facility] HospitalEstimat Glomerular Filtration Rate 2019-10-16 13:15:00* Test Item Value Reference Range Interpretation Comments Estimat Glomerular Filtration Rate (test code = 554661260) 38 >60 L Ranges were taken from the National Kidney Disease Education Program and the [facility] [employer] literature.Reference ranges:60 or greater: Mvnbsq04-51 ( for 3 consecutive months): Chronic kidney disease 15 or less: Kidney failureLegent Orthopedic HospitalGlucose Suxmv7758-71-79 13:15:00* Test Item Value Reference Range Interpretation Comments Glucose Level (test code = FYY7499) 172 74-118 H [facility] HospitalCalcium [id number] 13:15:00* Test Item Value Reference Range Interpretation Comments Calcium Level (test code = 64272-6) 9.4 8.4-10.2 [facility] HospitalTotal [id number] 13:15:00* Test Item Value Reference Range Interpretation Comments Total Bilirubin (test code = 1975-2) 0.4 0.2-1.2 [facility] HospitalAspartate Amino Transf (AST/SGOT) 2019-10-16 13:15:00* Test Item Value Reference Range Interpretation Comments Aspartate Amino Transf (AST/SGOT) (test code = Aspartate Amino Transf (AST/SGOT)) 18 5-34 [facility] HospitalAlanine Aminotransferase (ALT/SGPT) 2019-10-16 13:15:00* Test Item Value Reference Range Interpretation Comments Alanine Aminotransferase (ALT/SGPT) (test code = 1742-6) 29 0-55 [facility] Hospital[facility] [id number] 13:15:00* Test Item Value Reference Range Interpretation Comments Total Protein (test code = 2885-2) 5.9 6.5-8.1 L [facility] HospitalAlbumin2019-12-21 13:15:00* Test Item Value Reference Range Interpretation Comments Albumin (test code = 1751-7) 3.8 3.5-5.0 [facility] HospitalGlobulin2019-12-21 13:15:00* Test Item Value Reference Range Interpretation Comments Globulin (test code = 10206-6) 2.1 2.3-3.5 L [facility] HospitalAlbumin/Globulin Buxkc9358-14-35 13:15:00 * Test Item Value Reference Range Interpretation Comments Albumin/Globulin Ratio (test code = 1759-0) 1.8 0.8-2.0 [facility] HospitalAlkaline Pxoyaxqsazf3311-21-34 13:15:00* Test Item Value Reference Range Interpretation Comments Alkaline Phosphatase (test code = 6768-6) 84 40-150 [facility] Pkifq4321-42-36 13:15:00* Test Item Value Reference Range Interpretation Comments Sodium Level (test code = 2951-2) 137 136-145 [facility] HospitalPotassium Loqui5881-73-95 13:15:00* Test Item Value Reference Range Interpretation Comments Potassium Level (test code = 2823-3) 4.3 3.5-5.1 [facility] HospitalChloride Zunsd6514-14-90 13:15:00* Test Item Value Reference Range Interpretation Comments Chloride Level (test code = 2075-0) 89 98-107 L [facility] HospitalCarbon Dioxide Qnulk9153-54-72 13:15:00* Test Item Value Reference Range Interpretation Comments Carbon Dioxide Level (test code = 2028-9) 37 22-29 H [facility] HospitalAnion Lbf0075-33-09 13:15:00* Test Item Value Reference Range Interpretation Comments Anion Gap (test code = 69088-4) 15.3 8-16 [facility] HospitalBlood Urea Gbqqzlxj7276-28-44 13:15:00* Test Item Value Reference Range Interpretation Comments Blood Urea Nitrogen (test code = 3094-0) 50 7-26 H [facility] HospitalCreatinine2019-12-21 13:15:00* Test Item Value Reference Range Interpretation Comments Creatinine (test code = 2160-0) 1.74 0.72-1.25 H [facility] HospitalBUN/Creatinine Nbzdm5414-86-33 13:15:00* Test Item Value Reference Range Interpretation Comments BUN/Creatinine Ratio (test code = 3097-3) 29 6-25 H [facility] HospitalEstimat Glomerular Filtration Rate 2019-10-16 13:15:00* Test Item Value Reference Range Interpretation Comments Estimat Glomerular Filtration Rate (test code = 859338342) 38 >60 L Ranges were taken from the National Kidney Disease Education Program and the [facility] literature.Reference ranges:60 or greater: Hvzdmm54-45 ( for 3 consecutive months): Chronic kidney disease 15 or less: Kidney failureLegent Orthopedic HospitalGlucose Xrqii0937-19-71 13:15:00* Test Item Value Reference Range Interpretation Comments Glucose Level (test code = EIJ6102) 172 74-118 H [facility] HospitalCalcium Zbsaq2120-75-23 13:15:00* Test Item Value Reference Range Interpretation Comments Calcium Level (test code = 76199-4) 9.4 8.4-10.2 [facility] HospitalTotal Uxcuirihi9291-73-52 13:15:00* Test Item Value Reference Range Interpretation Comments Total Bilirubin (test code = 1975-2) 0.4 0.2-1.2 [facility] HospitalAspartate Amino Transf (AST/SGOT) 2019-10-16 13:15:00* Test Item Value Reference Range Interpretation Comments Aspartate Amino Transf (AST/SGOT) (test code = Aspartate Amino Transf (AST/SGOT)) 18 5-34 [facility] HospitalAlanine Aminotransferase (ALT/SGPT) 2019-10-16 13:15:00* Test Item Value Reference Range Interpretation Comments Alanine Aminotransferase (ALT/SGPT) (test code = 1742-6) 29 0-55 [facility] HospitalTotal Azymcve9371-93-92 13:15:00* Test Item Value Reference Range Interpretation Comments Total Protein (test code = 2885-2) 5.9 6.5-8.1 L [facility] HospitalAlbumin2019-12-21 13:15:00* Test Item Value Reference Range Interpretation Comments Albumin (test code = 1751-7) 3.8 3.5-5.0 [facility] HospitalGlobulin2019-12-21 13:15:00* Test Item Value Reference Range Interpretation Comments Globulin (test code = 30080-9) 2.1 2.3-3.5 L [facility] HospitalAlbumin/Globulin Fcfuu7755-51-94 13:15:00 * Test Item Value Reference Range Interpretation Comments Albumin/Globulin Ratio (test code = 1759-0) 1.8 0.8-2.0 [facility] HospitalAlkaline Jawuaxqoucl1786-59-99 13:15:00* Test Item Value Reference Range Interpretation Comments Alkaline Phosphatase (test code = 6768-6) 84 40-150 [facility] HospitalArterial Blood gW3393-29-34 13:05:00* Test Item Value Reference Range Interpretation Comments Arterial Blood pH (test code = 2744-1) 7.49 7.31-7.41 H [facility] HospitalArterial Blood Partial Pressure CO2 2019-10-16 13:05:00* Test Item Value Reference Range Interpretation Comments Arterial Blood Partial Pressure CO2 (test code = 2019-05) 51 41-51 [facility] HospitalArterial Blood Partial Pressure O2 2019-10-16 13:05:00* Test Item Value Reference Range Interpretation Comments Arterial Blood Partial Pressure O2 (test code = 2019-8) 97 80-105 [facility] HospitalArterial Blood VFK11498-24-99 13:05:00* Test Item Value Reference Range Interpretation Comments Arterial Blood HCO3 (test code = 1960-4) 39 23-28 H [facility] HospitalArterial Blood Base Bckgcr3788-65-77 13:05:00* Test Item Value Reference Range Interpretation Comments Arterial Blood Base Excess (test code = 1925-7) 15.0 -2-3 H [facility] HospitalArterial Blood Oxygen Saturation 2019-10-16 13:05:00* Test Item Value Reference Range Interpretation Comments Arterial Blood Oxygen Saturation (test code = 2708-6) 98.0 95-98 [facility] HospitalFiO22019-12-21 13:05:00* Test Item Value Reference Range Interpretation Comments FiO2 (test code = FiO2) 24 NASAL CANNULA 2L [facility] uN9713-48-15 13:05:00* Test Item Value Reference Range Interpretation Comments Arterial Blood pH (test code = 2744-1) 7.49 7.31-7.41 H [facility] HospitalArterial Blood Partial Pressure CO2 2019-10-16 13:05:00* Test Item Value Reference Range Interpretation Comments Arterial Blood Partial Pressure CO2 (test code = 2018-8) 51 41-51 [facility] HospitalArterial Blood Partial Pressure O2 2019-10-16 13:05:00* Test Item Value Reference Range Interpretation Comments Arterial Blood Partial Pressure O2 (test code = 2018-8) 97 80-105 [facility] HospitalArterial Blood LML02353-04-73 13:05:00* Test Item Value Reference Range Interpretation Comments Arterial Blood HCO3 (test code = 1960-4) 39 23-28 H [facility] HospitalArterial Blood Base Jwhqge2845-14-45 13:05:00* Test Item Value Reference Range Interpretation Comments Arterial Blood Base Excess (test code = 1925-7) 15.0 -2-3 H [facility] HospitalArterial Blood Oxygen Saturation 2019-10-16 13:05:00* Test Item Value Reference Range Interpretation Comments Arterial Blood Oxygen Saturation (test code = 2708-6) 98.0 95-98 [facility] HospitalFiO22019-12-21 13:05:00* Test Item Value Reference Range Interpretation Comments FiO2 (test code = FiO2) 24 NASAL CANNULA 2L CHIOMA FROM LEFT RAD[facility]ALLeg[facility]opedic Hospital White Blood Ofjva9461-36-33 13:04:00* Test Item Value Reference Range Interpretation Comments White Blood Count (test code = 6690-2) 12.11 4.8-10.8 H [facility] HospitalRed Blood Hwquk0330-16-00 13:04:00* Test Item Value Reference Range Interpretation Comments Red Blood Count (test code = 789-8) 5.08 4.3-5.7 [facility] HospitalHemoglobin2019-12-21 13:04:00* Test Item Value Reference Range Interpretation Comments Hemoglobin (test code = 72853-9) 12.1 14.0-18.0 L [facility] HospitalHematocrit2019-12-21 13:04:00* Test Item Value Reference Range Interpretation Comments Hematocrit (test code = 4544-3) 42.4 38.2-49.6 [facility] HospitalMean Corpuscular Opwilo0684-23-08 13:04:00* Test Item Value Reference Range Interpretation Comments Mean Corpuscular Volume (test code = 787-2) 83.5 81-99 [facility] HospitalMean Corpuscular Dsfvnhnqlo4642-54-83 13:04:00* Test Item Value Reference Range Interpretation Comments Mean Corpuscular Hemoglobin (test code = 785-6) 23.8 28-32 L [facility] HospitalMean Corpuscular Hemoglobin Concent 2019-10-16 13:04:00* Test Item Value Reference Range Interpretation Comments Mean Corpuscular Hemoglobin Concent (test code = 786-4) 28.5 31-35 L [facility] HospitalRed Cell Distribution Decbg7042-48-67 13:04:00* Test Item Value Reference Range Interpretation Comments Red Cell Distribution Width (test code = 16736-0) 17.4 11.7 -14.4 H [facility] HospitalPlatelet Rdbks6314-87-34 13:04:00* Test Item Value Reference Range Interpretation Comments Platelet Count (test code = 777-3) 204 140-360 [facility] HospitalNeutrophils (%) (Auto)2019-10-16 13:04:00 * Test Item Value Reference Range Interpretation Comments Neutrophils (%) (Auto) (test code = 17295-0) 88.9 38.7-80.0 H [facility] HospitalLymphocytes (%) (Auto)2019-10-16 13:04:00 * Test Item Value Reference Range Interpretation Comments Lymphocytes (%) (Auto) (test code = 736-9) 4.5 18.0-39.1 L [facility] HospitalMonocytes (%) (Auto)2019-10-16 13:04:00* Test Item Value Reference Range Interpretation Comments Monocytes (%) (Auto) (test code = 5905-5) 4.4 4.4-11.3 [facility] HospitalEosinophils (%) (Auto)2019-10-16 13:04:00 * Test Item Value Reference Range Interpretation Comments Eosinophils (%) (Auto) (test code = 713-8) 0.0 0.0-6.0 [facility] HospitalBasophils (%) (Auto)2019-10-16 13:04:00* Test Item Value Reference Range Interpretation Comments Basophils (%) (Auto) (test code = 706-2) 0.1 0.0-1.0 [facility] HospitalIM GRANULOCYTES %2019-10-16 13:04:00* Test Item Value Reference Range Interpretation Comments IM GRANULOCYTES % (test code = IM GRANULOCYTES %) 2.1 0.0- 1.0 H [facility] HospitalNeutrophils # (Auto)2019-10-16 13:04:00* Test Item Value Reference Range Interpretation Comments Neutrophils # (Auto) (test code = 751-8) 10.8 2.1-6.9 H [facility] HospitalLymphocytes # (Auto)2019-10-16 13:04:00* Test Item Value Reference Range Interpretation Comments Lymphocytes # (Auto) (test code = 48386-1) 0.6 1.0-3.2 L [facility] HospitalMonocytes # (Auto)2019-10-16 13:04:00* Test Item Value Reference Range Interpretation Comments Monocytes # (Auto) (test code = 742-7) 0.5 0.2-0.8 [facility] HospitalEosinophils # (Auto)2019-10-16 13:04:00* Test Item Value Reference Range Interpretation Comments Eosinophils # (Auto) (test code = 711-2) 0.0 0.0-0.4 [facility] HospitalBasophils # (Auto)2019-10-16 13:04:00* Test Item Value Reference Range Interpretation Comments Basophils # (Auto) (test code = 704-7) 0.0 0.0-0.1 [facility] HospitalAbsolute Immature Granulocyte (auto 2019-10-16 13:04:00* Test Item Value Reference Range Interpretation Comments Absolute Immature Granulocyte (auto (bharat t code = Absolute Immature Granulocyte (auto) 0.26 0-0.1 H [facility] HospitalWhite Blood Llflm6442-64-16 13:04:00* Test Item Value Reference Range Interpretation Comments White Blood Count (test code = 6690-2) 12.11 4.8-10.8 H [facility] HospitalRed Blood Wlplj0991-10-20 13:04:00* Test Item Value Reference Range Interpretation Comments Red Blood Count (test code = 789-8) 5.08 4.3-5.7 [facility] HospitalHemoglobin2019-12-21 13:04:00* Test Item Value Reference Range Interpretation Comments Hemoglobin (test code = 00567-0) 12.1 14.0-18.0 L [facility] HospitalHematocrit2019-12-21 13:04:00* Test Item Value Reference Range Interpretation Comments Hematocrit (test code = 4544-3) 42.4 38.2-49.6 [facility] HospitalMean Corpuscular Ycdkid1642-85-13 13:04:00* Test Item Value Reference Range Interpretation Comments Mean Corpuscular Volume (test code = 787-2) 83.5 81-99 [facility] HospitalMean Corpuscular Phkpchxoyb9487-86-94 13:04:00* Test Item Value Reference Range Interpretation Comments Mean Corpuscular Hemoglobin (test code = 785-6) 23.8 28-32 L [facility] HospitalMean Corpuscular Hemoglobin Concent 2019-10-16 13:04:00* Test Item Value Reference Range Interpretation Comments Mean Corpuscular Hemoglobin Concent (test code = 786-4) 28.5 31-35 L [facility] HospitalRed Cell Distribution Gdzfy2147-00-24 13:04:00* Test Item Value Reference Range Interpretation Comments Red Cell Distribution Width (test code = 86091-3) 17.4 11.7 -14.4 H [facility] HospitalPlatelet Mkdhx5588-09-70 13:04:00* Test Item Value Reference Range Interpretation Comments Platelet Count (test code = 777-3) 204 140-360 [facility] HospitalNeutrophils (%) (Auto)2019-10-16 13:04:00 * Test Item Value Reference Range Interpretation Comments Neutrophils (%) (Auto) (test code = 00632-5) 88.9 38.7-80.0 H [facility] HospitalLymphocytes (%) (Auto)2019-10-16 13:04:00 * Test Item Value Reference Range Interpretation Comments Lymphocytes (%) (Auto) (test code = 736-9) 4.5 18.0-39.1 L [facility] HospitalMonocytes (%) (Auto)2019-10-16 13:04:00* Test Item Value Reference Range Interpretation Comments Monocytes (%) (Auto) (test code = 5905-5) 4.4 4.4-11.3 [facility] HospitalEosinophils (%) (Auto)2019-10-16 13:04:00 * Test Item Value Reference Range Interpretation Comments Eosinophils (%) (Auto) (test code = 713-8) 0.0 0.0-6.0 [facility] HospitalBasophils (%) (Auto)2019-10-16 13:04:00* Test Item Value Reference Range Interpretation Comments Basophils (%) (Auto) (test code = 706-2) 0.1 0.0-1.0 [facility] HospitalIM GRANULOCYTES %2019-10-16 13:04:00* Test Item Value Reference Range Interpretation Comments IM GRANULOCYTES % (test code = IM GRANULOCYTES %) 2.1 0.0- 1.0 H [facility] HospitalNeutrophils # (Auto)2019-10-16 13:04:00* Test Item Value Reference Range Interpretation Comments Neutrophils # (Auto) (test code = 751-8) 10.8 2.1-6.9 H [facility] HospitalLymphocytes # (Auto)2019-10-16 13:04:00* Test Item Value Reference Range Interpretation Comments Lymphocytes # (Auto) (test code = 87537-4) 0.6 1.0-3.2 L [facility] HospitalMonocytes # (Auto)2019-10-16 13:04:00* Test Item Value Reference Range Interpretation Comments Monocytes # (Auto) (test code = 742-7) 0.5 0.2-0.8 [facility] HospitalEosinophils # (Auto)2019-10-16 13:04:00* Test Item Value Reference Range Interpretation Comments Eosinophils # (Auto) (test code = 711-2) 0.0 0.0-0.4 [facility] HospitalBasophils # (Auto)2019-10-16 13:04:00* Test Item Value Reference Range Interpretation Comments Basophils # (Auto) (test code = 704-7) 0.0 0.0-0.1 [facility] HospitalAbsolute Immature Granulocyte (auto 2019-10-16 13:04:00* Test Item Value Reference Range Interpretation Comments Absolute Immature Granulocyte (auto (bharat t code = Absolute Immature Granulocyte (auto) 0.26 0-0.1 H [facility] HospitalBedside Anczsji4173-82-16 14:26:00* Test Item Value Reference Range Interpretation Comments Bedside Glucose (test code = 63770-5) 165 70-120 H Meter ID: [id number] Glucose 2019-08-12 14:26:00* Test Item Value Reference Range Interpretation Comments Bedside Glucose (test code = 23844-7) 165 70-120 H Meter ID: [id number] Bend Regional [facility] Center Glucose 2019-08-12 14:26:00* Test Item Value Reference Range Interpretation Comments Bedside Glucose (test code = 05473-9) 165 70-120 H Meter ID: [id number] venture between [facility] and [facility] Resourcesgnesium Level 2019-08-12 06:27:00* Test Item Value Reference Range Interpretation Comments Magnesium Level (test code = 81910-3) 2.0 1.3-2.1 [facility]eresium Vviou4802-27-30 06:27:00* Test Item Value Reference Range Interpretation Comments Magnesium Level (test code = 40723-4) 2.0 1.3-2.1 [facility] Centeresium Ayeas4063-08-80 06:27:00* Test Item Value Reference Range Interpretation Comments Magnesium Level (test code = 82102-5) 2.0 1.3-2.1 [facility]odium Bzuoz4445-51-43 05:33:00* Test Item Value Reference Range Interpretation Comments Sodium Level (test code = 2951-2) 142 136-145 [facility] HospitalPotassium Jdogu4241-16-88 05:33:00* Test Item Value Reference Range Interpretation Comments Potassium Level (test code = 2823-3) 4.0 3.5-5.1 [facility] HospitalChloride Wmofq4800-30-60 05:33:00* Test Item Value Reference Range Interpretation Comments Chloride Level (test code = 2075-0) 97 98-107 L [facility] HospitalCarbon Dioxide Vetvf8746-08-66 05:33:00* Test Item Value Reference Range Interpretation Comments Carbon Dioxide Level (test code = 2028-9) 39 22-29 H [facility] HospitalAnion Ezb3461-09-28 05:33:00* Test Item Value Reference Range Interpretation Comments Anion Gap (test code = 66169-2) 10.0 8-16 [facility] HospitalBlood Urea Xyceivxj6140-59-40 05:33:00* Test Item Value Reference Range Interpretation Comments Blood Urea Nitrogen (test code = 3094-0) 25 7-26 [facility] HospitalCreatinine2019-10-17 05:33:00* Test Item Value Reference Range Interpretation Comments Creatinine (test code = 2160-0) 1.22 0.72-1.25 [facility] HospitalBUN/Creatinine Fgszy4216-27-96 05:33:00* Test Item Value Reference Range Interpretation Comments BUN/Creatinine Ratio (test code = 3097-3) 20 6- [facility] HospitalEstimat Glomerular Filtration Rate 2019-08-12 05:33:00* Test Item Value Reference Range Interpretation Comments Estimat Glomerular Filtration Rate (test code = 500262710) 58 >60 L Ranges were taken from the National Kidney Disease Education Program and the Replaced by [facility] Kidney Foundation literature.Reference ranges:60 or greater: Mpmyec92-95 ( for 3 consecutive months): Chronic kidney disease 15 or less: Kidney failureLegent Orthopedic HospitalGlucose Wzqnl5097-67-90 05:33:00* Test Item Value Reference Range Interpretation Comments Glucose Level (test code = PIR5285) 113 74-118 [facility] HospitalCalcium Evndk9853-42-57 05:33:00* Test Item Value Reference Range Interpretation Comments Calcium Level (test code = 74997-1) 9.0 8.4-10.2 [facility] HospitalBlood Mnnxxsz7235-02-25 20:49:00* Test Item Value Reference Range Interpretation Comments Blood Culture (test code = 80344315) NO GROWTH AFTER 5 DAYS, FINAL REPORT [facility] Kqbzwlr1983-50-70 20:49:00* Test Item Value Reference Range Interpretation Comments Blood Culture (test code = 12053776) NO GROWTH AFTER 5 DAYS, FINAL REPORT [facility] Luewvoz0927-77-62 20:49:00* Test Item Value Reference Range Interpretation Comments Blood Culture (test code = 28440007) NO GROWTH AFTER 5 DAYS, [facility]PORT [facility] FNSXTTCS2813-33-46 07:24:00 [place] [address] Patient Name: STEVE BENEDICT MR #: [id number] : 1945 Age/Sex: 73/M Req #: [id number] Adm Physician: DORIS PERALES MD Ordered by: DORIS PERALES MD Report #: [id number] Location: [facility] Room/Bed: [place] [address] Procedure: [id number] DX /ELBOW RIGHT COMPLETE Exam Date: 08/10/19 [...] Transcribed By: ERAN on 08/10/19724 COPY TO: DORIS PERALES MD CT BRAIN BJ3531-21-34 06:19:00 [place] [address] Patient Name: STEVE BENEDICT MR #: [id number] : 1945 Age/Sex: 73/M Req #: [id number] Adm Physician: DORIS PERALES MD Ordered by: DORIS PERALES MD Report #: [id number] Location: [facility] Room/Bed: [place] [address] Procedure: [id number] CT /CT BRAIN WO Exam Date: 08/10/19 [...] Transcribed By: ERAN on 08/10/19623 COPY TO: DORIS KAUFMAN MD White Blood Hhcga8673-77-16 05:17:00* Test Item Value Reference Range Interpretation Comments White Blood Count (test code = 6690-2) 7.17 4.8-10.8 [facility] HospitalRed Blood Ihkmq0682-20-61 05:17:00* Test Item Value Reference Range Interpretation Comments Red Blood Count (test code = 789-8) 4.07 4.3-5.7 L [facility] HospitalHemoglobin2019-10-13 05:17:00* Test Item Value Reference Range Interpretation Comments Hemoglobin (test code = 12105-2) 9.5 14.0-18.0 L [facility] HospitalHematocrit2019-10-13 05:17:00* Test Item Value Reference Range Interpretation Comments Hematocrit (test code = 4544-3) 33.6 38.2-49.6 L [facility] HospitalMean Corpuscular Utpims0434-76-15 05:17:00* Test Item Value Reference Range Interpretation Comments Mean Corpuscular Volume (test code = 787-2) 82.6 81-99 [facility] HospitalMean Corpuscular Tffbxqvrjv3903-12-00 05:17:00* Test Item Value Reference Range Interpretation Comments Mean Corpuscular Hemoglobin (test code = 785-6) 23.3 28-32 L [facility] Corpuscular Hemoglobin Concent 2019-08-08 05:17:00* Test Item Value Reference Range Interpretation Comments Mean Corpuscular Hemoglobin Concent (test code = 786-4) 28.3 31-35 L [facility] HospitalRed Cell Distribution Baijb8944-57-14 05:17:00* Test Item Value Reference Range Interpretation Comments Red Cell Distribution Width (test code = 95626-2) 17.3 11.7 -14.4 H [facility] HospitalPlatelet Aardt0577-19-52 05:17:00* Test Item Value Reference Range Interpretation Comments Platelet Count (test code = 777-3) 202 140-360 [facility] HospitalNeutrophils (%) (Auto)2019-08-08 05:17:00 * Test Item Value Reference Range Interpretation Comments Neutrophils (%) (Auto) (test code = 00167-1) 90.9 38.7-80.0 H [facility] HospitalLymphocytes (%) (Auto)2019-08-08 05:17:00 * Test Item Value Reference Range Interpretation Comments Lymphocytes (%) (Auto) (test code = 736-9) 5.6 18.0-39.1 L [facility] HospitalMonocytes (%) (Auto)2019-08-08 05:17:00* Test Item Value Reference Range Interpretation Comments Monocytes (%) (Auto) (test code = 5905-5) 2.6 4.4-11.3 L [facility] HospitalEosinophils (%) (Auto)2019-08-08 05:17:00 * Test Item Value Reference Range Interpretation Comments Eosinophils (%) (Auto) (test code = 713-8) 0.0 0.0-6.0 [facility] HospitalBasophils (%) (Auto)2019-08-08 05:17:00* Test Item Value Reference Range Interpretation Comments Basophils (%) (Auto) (test code = 706-2) 0.1 0.0-1.0 [facility] HospitalIM GRANULOCYTES %2019-08-08 05:17:00* Test Item Value Reference Range Interpretation Comments IM GRANULOCYTES % (test code = IM GRANULOCYTES %) 0.8 0.0- 1.0 [facility] HospitalNeutrophils # (Auto)2019-08-08 05:17:00* Test Item Value Reference Range Interpretation Comments Neutrophils # (Auto) (test code = 751-8) 6.5 2.1-6.9 [facility] HospitalLymphocytes # (Auto)2019-08-08 05:17:00* Test Item Value Reference Range Interpretation Comments Lymphocytes # (Auto) (test code = 46427-1) 0.4 1.0-3.2 L [facility] HospitalMonocytes # (Auto)2019-08-08 05:17:00* Test Item Value Reference Range Interpretation Comments Monocytes # (Auto) (test code = 742-7) 0.2 0.2-0.8 [facility] HospitalEosinophils # (Auto)2019-08-08 05:17:00* Test Item Value Reference Range Interpretation Comments Eosinophils # (Auto) (test code = 711-2) 0.0 0.0-0.4 [facility] HospitalBasophils # (Auto)2019-08-08 05:17:00* Test Item Value Reference Range Interpretation Comments Basophils # (Auto) (test code = 704-7) 0.0 0.0-0.1 [facility] HospitalAbsolute Immature Granulocyte (auto 2019-08-08 05:17:00* Test Item Value Reference Range Interpretation Comments Absolute Immature Granulocyte (auto (bharat t code = Absolute Immature Granulocyte (auto) 0.06 0-0.1 [facility] HospitalCreatine Kinase GG5675-60-41 15:54:00* Test Item Value Reference Range Interpretation Comments Creatine Kinase MB (test code = 28702-0) 2.60 0-5.0 [facility] HospitalTroponin U9621-64-98 15:54:00* Test Item Value Reference Range Interpretation Comments Troponin I (test code = LZT1728) 0.037 0-0.300 [facility] HospitalCreatine Kinase LF8982-96-00 15:54:00* Test Item Value Reference Range Interpretation Comments Creatine Kinase MB (test code = 74919-1) 2.60 0-5.0 [facility] D1729-71-26 15:54:00* Test Item Value Reference Range Interpretation Comments Troponin I (test code = MHY8592) 0.037 0-0.300 [facility] HospitalCreatine Kinase OD0664-52-63 15:54:00* Test Item Value Reference Range Interpretation Comments Creatine Kinase MB (test code = 04691-8) 2.60 0-5.0 [facility] HospitalTroponin S3011-68-37 15:54:00* Test Item Value Reference Range Interpretation Comments Troponin I (test code = BLX3205) 0.037 0-0.300 [facility] HospitalCreatine Mryrzb8559-19-57 15:46:00* Test Item Value Reference Range Interpretation Comments Creatine Kinase (test code = 2157-6) 20 30-200 L [facility] Xuksjo0472-07-48 15:46:00* Test Item Value Reference Range Interpretation Comments Creatine Kinase (test code = 2157-6) 20 30-200 L [facility] Csyypx4014-47-79 15:46:00* Test Item Value Reference Range Interpretation Comments Creatine Kinase (test code = 2157-6) 20 30-200 L [facility] HospitalTotal Rbbhxeulc9773-47-39 08:24:00* Test Item Value Reference Range Interpretation Comments Total Bilirubin (test code = 1975-2) 0.2 0.2-1.2 [facility] HospitalAspartate Amino Transf (AST/SGOT) 2019-08-06 08:24:00* Test Item Value Reference Range Interpretation Comments Aspartate Amino Transf (AST/SGOT) (test code = Aspartate Amino Transf (AST/SGOT)) 22 5-34 [facility] HospitalAlanine Aminotransferase (ALT/SGPT) 2019-08-06 08:24:00* Test Item Value Reference Range Interpretation Comments Alanine Aminotransferase (ALT/SGPT) (test code = 1742-6) 30 0-55 [facility] HospitalTotal Zxnjgae3848-43-78 08:24:00* Test Item Value Reference Range Interpretation Comments Total Protein (test code = 2885-2) 5.7 6.5-8.1 L [facility] HospitalAlbumin2019-10-11 08:24:00* Test Item Value Reference Range Interpretation Comments Albumin (test code = 1751-7) 2.7 3.5-5.0 L [facility] HospitalGlobulin2019-10-11 08:24:00* Test Item Value Reference Range Interpretation Comments Globulin (test code = 35799-5) 3.0 2.3-3.5 [facility] HospitalAlbumin/Globulin Tldcl5097-40-55 08:24:00 * Test Item Value Reference Range Interpretation Comments Albumin/Globulin Ratio (test code = 1759-0) 0.9 0.8-2.0 [facility] HospitalAlkaline Ixmiawynldi0352-55-14 08:24:00* Test Item Value Reference Range Interpretation Comments Alkaline Phosphatase (test code = 6768-6) 82 40-150 [facility] HospitalCHEST SINGLE (PORTABLE)2019-08-06 06:57:00 [facility] [address] [place] [address] Patient Name: STEVE BENEDICT MR #: [id number] : 1945 Age/Sex: 73/M Req #: [id number] Adm Physician: ROSALIE SHORT MD Ordered by: IBAN RAMOS MD Report #: [id number] Location: [facility] Room/Bed: [place] [address] Procedure: [id number] DX /CHEST SINGLE (PORTABLE) Exam Date: Exam [...] IBAN RAMOS MD Influenza Virus Types A,B Niikxwm7826-46-18 00:02:00* Test Item Value Reference Range Interpretation Comments Influenza Virus Types A,B Antigen (test code = 10220-1) POSITIVE FLU A NEGATIVE H Results called to at 0001 on 08/06/19 by [facility] [place].Results called to infection control at 0001 on 08/06/19 by Phylicia [facility] [place].[facility] HospitalInfluenza Virus Types A,B Filoami8501-33-47 00:02:00* Test Item Value Reference Range Interpretation Comments Influenza Virus Types A,B Antigen (test code = 56181-6) POSITIVE FLU A NEGATIVE H Results called to at 0001 on 08/06/19 by Phylicia [facility] [place].Results called to infection control at 0001 on 08/06/19 by Phylicia [facility] [place].[facility] HospitalInfluenza Virus Types A,B Voaiyzq8582-37-16 00:02:00* Test Item Value Reference Range Interpretation Comments Influenza Virus Types A,B Antigen (test code = 48177-2) POSITIVE FLU A NEGATIVE H Results called to at 0001 on 08/06/19 by [place]ia [facility] [place].Results called to infection control at 0001 on 08/06/19 by Phylicia [facility] [place].[facility] HospitalArterial Blood lN3718-32-45 23:59:00* Test Item Value Reference Range Interpretation Comments Arterial Blood pH (test code = 2744-1) 7.39 7.31-7.41 [facility] HospitalArterial Blood Partial Pressure CO2 2019-08-05 23:59:00* Test Item Value Reference Range Interpretation Comments Arterial Blood Partial Pressure CO2 (test code = 2019-05) 58 41-51 H [facility] HospitalArterial Blood Partial Pressure O2 2019-08-05 23:59:00* Test Item Value Reference Range Interpretation Comments Arterial Blood Partial Pressure O2 (test code = 2019-05) 98 80-105 [facility] HospitalArterial Blood YWW30915-67-04 23:59:00* Test Item Value Reference Range Interpretation Comments Arterial Blood HCO3 (test code = 1960-4) 35 23-28 H [facility] HospitalArterial Blood Base Lgsued8687-10-22 23:59:00* Test Item Value Reference Range Interpretation Comments Arterial Blood Base Excess (test code = 1925-7) 10.0 -2-3 H [facility] HospitalArterial Blood Oxygen Saturation 2019-08-05 23:59:00* Test Item Value Reference Range Interpretation Comments Arterial Blood Oxygen Saturation (test code = 2708-6) 97.0 95-98 [facility] HospitalFiO22019-10-10 23:59:00* Test Item Value Reference Range Interpretation Comments FiO2 (test code = FiO2) 36 Pt on 4L [place].[facility] HospitalCT CHEST XV4588-81-27 22:47:00 [place] [address] Patient Name: STEVE BENEDICT MR #: [id number] : 1945 Age/Sex: 73/M Req #: [id number] Adm Physician: Ordered by: IBAN RAMOS MD Report #: [id number] Location: ER Room/Bed: Procedure: [id number] CT/ CT CHEST WO Exam Date: 08/05/19 Exam Time: 6 REPORT STATUS: Signed EXAM: CT Chest WITHOUT [...] Dictated By: ANNE MARIE RAMÍREZ MD, MD 4505 Tra nscribed By: ERAN on 08/05/192314 COPY TO: IBAN RAMOS MD CHEST SINGLE (PORTABLE)2019-08-05 22:19:00 [place] [address] Patient Name: STEVE BENEDICT MR #: [id number] : 1945 Age/Sex: 73/M Req #: [id number] Adm Physician: Ordered by: IBAN RAMOS MD Report #: [id number] Location: ER Room/Bed: Procedure: [id number] DX/ CHEST SINGLE (PORTABLE) Exam Date: 08/05/19 Exam Jose E e: 2134 REPORT STATUS: Signed EX AMINATION: CHEST SINGLE [...] 08/05/192221 COPY TO: IBAN RAMOS MD Urine WTH0482-60-72 21:44:00* Test Item Value Reference Range Interpretation Comments Urine WBC (test code = 5821-4) 0-5 0-5 [facility] HospitalUrine IDY8021-73-02 21:44:00* Test Item Value Reference Range Interpretation Comments Urine RBC (test code = 76682-7) NONE 0-5 [facility] HospitalUrine Syfyzjry7962-60-94 21:44:00* Test Item Value Reference Range Interpretation Comments Urine Bacteria (test code = 25618-6) NONE NONE [facility] HospitalUrine Epithelial Rdpeq0155-20-83 21:44:00 * Test Item Value Reference Range Interpretation Comments Urine Epithelial Cells (test code = 01061-1) FEW NONE [facility] HospitalUrine FRG0856-80-53 21:44:00* Test Item Value Reference Range Interpretation Comments Urine WBC (test code = 5821-4) 0-5 0-5 [facility] HospitalUrine HQN9421-51-16 21:44:00* Test Item Value Reference Range Interpretation Comments Urine RBC (test code = 73146-6) NONE 0-5 [facility] HospitalUrine Ycwqufmn2369-05-03 21:44:00* Test Item Value Reference Range Interpretation Comments Urine Bacteria (test code = 72099-9) NONE NONE [facility] HospitalUrine Epithelial Gydzn7303-50-57 21:44:00 * Test Item Value Reference Range Interpretation Comments Urine Epithelial Cells (test code = 30658-0) FEW NONE [facility] HospitalUrine WHA5280-56-45 21:44:00* Test Item Value Reference Range Interpretation Comments Urine WBC (test code = 5821-4) 0-5 0-5 [facility] HospitalUrine FZF9273-17-05 21:44:00* Test Item Value Reference Range Interpretation Comments Urine RBC (test code = 68792-6) NONE 0-5 [facility] HospitalUrine Iwmtnkti2409-22-44 21:44:00* Test Item Value Reference Range Interpretation Comments Urine Bacteria (test code = 30893-5) NONE NONE [facility] HospitalUrine Epithelial Zfcbp0868-25-54 21:44:00 * Test Item Value Reference Range Interpretation Comments Urine Epithelial Cells (test code = 95704-7) FEW NONE [facility] HospitalUrine Vlast2896-36-41 21:38:00* Test Item Value Reference Range Interpretation Comments Urine Color (test code = 5778-6) YELLOW YELLOW [facility] HospitalUrine Wizvejm6307-83-94 21:38:00* Test Item Value Reference Range Interpretation Comments Urine Clarity (test code = 79637-1) SL CLOUDY CLEAR H [facility] HospitalUrine Specific Osebeyj9737-33-19 21:38:00 * Test Item Value Reference Range Interpretation Comments Urine Specific [place] (test code = 5811-5) 1.010 1.010-1.02 5 [facility] HospitalUrine kR9300-21-14 21:38:00* Test Item Value Reference Range Interpretation Comments Urine pH (test code = 62589-5) 6 5-7 [facility] HospitalU[facility] Leukocyte Pxbkteke9546-68-93 21:38:00* Test Item Value Reference Range Interpretation Comments Urine Leukocyte Esterase (test code = 5799-2) NEGATIVE NEGATIVE [facility] HospitalU[facility] Iydbdwf1372-81-38 21:38:00* Test Item Value Reference Range Interpretation Comments Urine Nitrite (test code = 74066-0) NEGATIVE NEGATIVE [facility] HospitalUrine Ozaadlt6567-02-18 21:38:00* Test Item Value Reference Range Interpretation Comments Urine Protein (test code = 5804-0) NEGATIVE NEGATIVE [facility] HospitalUrine Glucose (UA)2019-08-05 21:38:00* Test Item Value Reference Range Interpretation Comments Urine Glucose (UA) (test code = 2349-9) NEGATIVE NEGATIVE [facility] HospitalUrine Dymgihe0072-91-76 21:38:00* Test Item Value Reference Range Interpretation Comments Urine Ketones (test code = 55656-0) NEGATIVE NEGATIVE [facility] HospitalUrine Zuijytxzlwtd8631-40-41 21:38:00* Test Item Value Reference Range Interpretation Comments Urine Urobilinogen (test code = 04827-2) 0.2 0.2-1 [facility] HospitalU[facility] Dyqpjilsv1852-41-71 21:38:00* Test Item Value Reference Range Interpretation Comments Urine Bilirubin (test code = 1978-6) NEGATIVE NEGATIVE [facility] HospitalU[facility] Gkntq0026-68-85 21:38:00* Test Item Value Reference Range Interpretation Comments Urine Blood (test code = 03557-0) NEGATIVE NEGATIVE [facility] HospitalU[facility] Czgiz4890-92-15 21:38:00* Test Item Value Reference Range Interpretation Comments Urine Color (test code = 5778-6) YELLOW YELLOW [facility] HospitalU[facility] Cnsynyk9293-56-95 21:38:00* Test Item Value Reference Range Interpretation Comments Urine Clarity (test code = 64009-2) SL CLOUDY CLEAR H [facility] HospitalUrine Specific Tzgjuze7429-00-31 21:38:00 * Test Item Value Reference Range Interpretation Comments Urine Specific [place] (test code = 5811-5) 1.010 1.010-1.02 5 [facility] HospitalUrine uE5050-45-81 21:38:00* Test Item Value Reference Range Interpretation Comments Urine pH (test code = 02213-3) 6 5-7 [facility] HospitalU[facility] Leukocyte Aphbcjqn6678-10-06 21:38:00* Test Item Value Reference Range Interpretation Comments Urine Leukocyte Esterase (test code = 5799-2) NEGATIVE NEGATIVE [facility] HospitalUrine Vnzbkzr8245-37-79 21:38:00* Test Item Value Reference Range Interpretation Comments Urine Nitrite (test code = 00952-3) NEGATIVE NEGATIVE [facility] HospitalUrine Fxxsfol9688-08-43 21:38:00* Test Item Value Reference Range Interpretation Comments Urine Protein (test code = 5804-0) NEGATIVE NEGATIVE [facility] HospitalUrine Glucose (UA)2019-08-05 21:38:00* Test Item Value Reference Range Interpretation Comments Urine Glucose (UA) (test code = 2349-9) NEGATIVE NEGATIVE [facility] HospitalUrine Rzecylw3366-65-33 21:38:00* Test Item Value Reference Range Interpretation Comments Urine Ketones (test code = 22404-4) NEGATIVE NEGATIVE [facility] HospitalUrine Evaurjhtibln1512-13-45 21:38:00* Test Item Value Reference Range Interpretation Comments Urine Urobilinogen (test code = 30345-9) 0.2 0.2-1 [facility] HospitalUrine Zxzdxhbqa4725-73-75 21:38:00* Test Item Value Reference Range Interpretation Comments Urine Bilirubin (test code = 1978-6) NEGATIVE NEGATIVE [facility] HospitalU[facility] Jvmyp7098-76-66 21:38:00* Test Item Value Reference Range Interpretation Comments Urine Blood (test code = 57945-3) NEGATIVE NEGATIVE [facility] HospitalU[facility] Uhifi3585-46-13 21:38:00* Test Item Value Reference Range Interpretation Comments Urine Color (test code = 5778-6) YELLOW YELLOW [facility] HospitalU[facility] Gztousq6765-30-05 21:38:00* Test Item Value Reference Range Interpretation Comments Urine Clarity (test code = 49593-7) SL CLOUDY CLEAR H [facility] HospitalUrine Specific Mmlbvcv2305-37-38 21:38:00 * Test Item Value Reference Range Interpretation Comments Urine Specific [place] (test code = 5811-5) 1.010 1.010-1.02 5 [facility] HospitalUrine oP2031-10-33 21:38:00* Test Item Value Reference Range Interpretation Comments Urine pH (test code = 79149-0) 6 5-7 [facility] HospitalU[facility] Leukocyte Uedgsfyc9761-07-26 21:38:00* Test Item Value Reference Range Interpretation Comments Urine Leukocyte Esterase (test code = 5799-2) NEGATIVE NEGATIVE [facility] HospitalUrine Lhzbggg8582-94-35 21:38:00* Test Item Value Reference Range Interpretation Comments Urine Nitrite (test code = 01453-9) NEGATIVE NEGATIVE [facility] HospitalUrine Ddxwkhw1633-97-34 21:38:00* Test Item Value Reference Range Interpretation Comments Urine Protein (test code = 5804-0) NEGATIVE NEGATIVE [facility] HospitalUrine Glucose (UA)2019-08-05 21:38:00* Test Item Value Reference Range Interpretation Comments Urine Glucose (UA) (test code = 2349-9) NEGATIVE NEGATIVE [facility] HospitalUrine Aprisih2017-50-65 21:38:00* Test Item Value Reference Range Interpretation Comments Urine Ketones (test code = 44829-3) NEGATIVE NEGATIVE [facility] HospitalU[facility] Tbqlkklxibjg5695-23-78 21:38:00* Test Item Value Reference Range Interpretation Comments Urine Urobilinogen (test code = 29507-5) 0.2 0.2-1 [facility] HospitalU[facility] Amqynvpbb9231-80-91 21:38:00* Test Item Value Reference Range Interpretation Comments Urine Bilirubin (test code = 1978-6) NEGATIVE NEGATIVE [facility] HospitalUrine Winza3619-37-89 21:38:00* Test Item Value Reference Range Interpretation Comments Urine Blood (test code = 77960-3) NEGATIVE NEGATIVE [facility] HospitalB-Type Natriuretic Znatmua1746-51-12 21:13:00* Test Item Value Reference Range Interpretation Comments B-Type Natriuretic Peptide (test code = 18124-9) 217.3 0-100 H [facility] HospitalB-Type Natriuretic Lizbkuz3794-48-65 21:13:00* Test Item Value Reference Range Interpretation Comments B-Type Natriuretic Peptide (test code = 32347-6) 217.3 0-100 H [facility] HospitalB-Type Natriuretic Eeftdwa9518-38-41 21:13:00* Test Item Value Reference Range Interpretation Comments B-Type Natriuretic Peptide (test code = 00404-3) 217.3 0-100 H [facility] HospitalLactic Acid Ryhsc5797-22-76 20:57:00* Test Item Value Reference Range Interpretation Comments Lactic Acid Level (test code = Lactic Acid Level) 7.4 4.5- 19.8 [facility] HospitalLactic Acid Qtmsa7879-51-20 20:57:00* Test Item Value Reference Range Interpretation Comments Lactic Acid Level (test code = Lactic Acid Level) 7.4 4.5- 19.8 [facility] HospitalLactic Acid Ipbcf9296-79-77 20:57:00* Test Item Value Reference Range Interpretation Comments Lactic Acid Level (test code = Lactic Acid Level) 7.4 4.5- 19.8 [facility] HospitalProthrombin Crwz3893-45-68 20:56:00* Test Item Value Reference Range Interpretation Comments Prothrombin Time (test code = 5902-2) 19.3 11.9-14.5 H [facility] HospitalProthromb Time International Ratio 2019-08-05 20:56:00* Test Item Value Reference Range Interpretation Comments Prothromb Time International Ratio (test code = 6301-6) 1.56 Oral Anticoagulant Therapy INR Values:1. Low Intensity Therapy 1.5 - 2.02 . Moderate Intensity Therapy 2.0 - 3.03. High Intensity Therapy(1) 2.5 - 3. 54. High Intensity Therapy(2) 3.0 - 4.05. Panic Value INR > 5.0 [facility] HospitalActivated Partial Thromboplast Time 2019-08-05 20:56:00* Test Item Value Reference Range Interpretation Comments Activated Partial Thromboplast Time (test code = 50625-2) 46.8 23.8-35.5 H [facility] HospitalProthromboh Payp5736-00-81 20:56:00* Test Item Value Reference Range Interpretation Comments Prothrombin Time (test code = 5902-2) 19.3 11.9-14.5 H [facility] HospitalProthromb Time International Ratio 2019-08-05 20:56:00* Test Item Value Reference Range Interpretation Comments Prothromb Time International Ratio (test code = 6301-6) 1.56 Oral Anticoagulant Therapy INR Values:1. Low Intensity Therapy 1.5 - 2.02 . Moderate Intensity Therapy 2.0 - 3.03. High Intensity Therapy(1) 2.5 - 3. 54. High Intensity Therapy(2) 3.0 - 4.05. Panic Value INR > 5.0 [facility] HospitalActivated Partial Thromboplast Time 2019-08-05 20:56:00* Test Item Value Reference Range Interpretation Comments Activated Partial Thromboplast Time (test code = 00872-1) 46.8 23.8-35.5 H [facility] HospitalProthrombin Nrjb3088-73-21 20:56:00* Test Item Value Reference Range Interpretation Comments Prothrombin Time (test code = 5902-2) 19.3 11.9-14.5 H [facility] HospitalProthromb Time International Ratio 2019-08-05 20:56:00* Test Item Value Reference Range Interpretation Comments Prothromb Time International Ratio (test code = 6301-6) 1.56 Oral Anticoagulant Therapy INR Values:1. Low Intensity Therapy 1.5 - 2.02 . Moderate Intensity Therapy 2.0 - 3.03. High Intensity Therapy(1) 2.5 - 3. 54. High Intensity Therapy(2) 3.0 - 4.05. Panic Value INR > 5.0 [facility] HospitalActivated Partial Thromboplast Time 2019-08-05 20:56:00* Test Item Value Reference Range Interpretation Comments Activated Partial Thromboplast Time (test code = 86946-0) 46.8 23.8-35.5 H [facility] HospitalRenin2019-08-24 06:18:00* Test Item Value Reference Range Interpretation Comments Renin (test code = 2915-7) 5.618 0.167-5.380 H This test was developed and its performance characteristicsdetermined by [employer] . It has not been cleared orapproved by the Food and Drug Administration.Perform ed at: [address] [id number] Dir chepe: Charanjit Godwin MD, Phone: [phone] Orthopedic HospitalRenin2019-08-24 06:18:00* Test Item Value Reference Range Interpretation Comments Renin (test code = 2915-7) 5.618 0.167-5.380 H This test was developed and its performance characteristicsdetermined by [employer] [employer] . It has not been cleared orapproved by the Food and Drug Administration.Perform ed at: [address] [id number] Dir chepe: Charanjit Godwin MD, Phone: [phone] [facility]in2019-08-24 06:18:00* Test Item Value Reference Range Interpretation Comments Renin (test code = 2915-7) 5.618 0.167-5.380 H This test was developed and its performance characteristicsdetermined by [employer] . It has not been cleared orapproved by the Food and Drug Administration.Perform ed at: [address] [id number] Dir chepe: Charanjit Godwin MD, Phone: [phone] Orthopedic HospitalAldosterone2019-08-21 22:03:00* Test Item Value Reference Range Interpretation Comments Aldosterone (test code = 1763-2) 2.5 0.0-30.0 This test was developed and its performance characteristicsdetermined by [employer] . It has not been cleared orapproved by the Food and Drug Administration.Perform ed at: [address] [id number] Dir chepe: Charanjit Godwin MD, Phone: [phone] Orthopedic HospitalAldosterone2019-08-21 22:03:00* Test Item Value Reference Range Interpretation Comments Aldosterone (test code = 1763-2) 2.5 0.0-30.0 This test was developed and its performance characteristicsdetermined by [employer] . It has not been cleared orapproved by the Food and Drug Administration.Perform ed at: [address] [id number] Dir chepe: Charanjit Godwin MD, Phone: [phone] Orthopedic HospitalAldosterone2019-08-21 22:03:00* Test Item Value Reference Range Interpretation Comments Aldosterone (test code = 1763-2) 2.5 0.0-30.0 This test was developed and its performance characteristicsdetermined by [employer] . It has not been cleared orapproved by the Food and Drug Administration.Perform ed at: [address] [id number] Dir chepe: Charanjit Godwin MD, Phone: [phone] Orthopedic HospitalDigoxin Iexry7132-29-95 17:40:00* Test Item Value Reference Range Interpretation Comments Digoxin Level (test code = 58967-8) < 0.30 0.8-2.0 L [facility] HospitalDigoxin Eyukl7399-65-96 17:40:00* Test Item Value Reference Range Interpretation Comments Digoxin Level (test code = 18778-4) < 0.30 0.8-2.0 L [facility] HospitalDixin Lqgoa2885-50-91 17:40:00* Test Item Value Reference Range Interpretation Comments Digoxin Level (test code = 99645-3) < 0.30 0.8-2.0 L [facility] HospitalDixin Hqjun5330-04-48 17:40:00* Test Item Value Reference Range Interpretation Comments Digoxin Level (test code = 18286-3) < 0.30 0.8-2.0 L [facility] HospitalBedside Tbmcqai1540-55-11 16:28:00* Test Item Value Reference Range Interpretation Comments Bedside Glucose (test code = 11666-4) 119 70-120 Meter ID: [id number] Orthopedic HospitalMODIFIED BA. SWALLOW 2019-06-16 16:12:00 [place] [address] Patient Name: STEVE BENEDICT MR #: [id number] : 1945 Age/Sex: 73/M Req #: [id number] Adm Physician: ROSALIE SHORT MD Ordered by: Samara Das GROUP ACTIVITIES AIDE Report #: [id number] Location: MED/SURG3 Room/Bed: [facility] Procedure: [id number] D X/MODIFIED BA. SWALLOW Exam Date: 06/16/19 Exam Time : 1110 REPORT STATUS: Signed Modified barium swallow, 06/16/2019. History: Aspiration. Fluoro jose e e: 2.3 min. Dose: 17.3 mGy (KARIME) Technique: Fluoroscopy was performed by cook chill technician. A radiologist was not present for exam. Fluoroscopic observat ion and imaging of the oral cavity, oropharynx, and hypopharynx was performed in the lateral projection during swallowing of liquids and solids, meredith d by speech pathology. See speech pathologist report for findings. Signed by: Jama Bertrand on 06/16/2019 4:12 PM Dictated By: JAMA BERTRAND MD El ectronically Signed By: JAMA BERTRAND MD on 06/16/191611 Transcribed By: ENDY RIVERA on 06/16/191611 COPY TO: SAMARA DAS GROUP ACTIVITIES AIDE CHEST SINGLE (PORTABLE)2019-06-16 08:59:00 [place] [address] Patient Name: STEVE BENEDICT MR #: [id number] : 1945 Age/Sex: 73/M Req #: [id number] Adm Physician: ROSALIE SHORT MD Ordered by: HARPAL RESENDEZ MD Report #: [id number] Location: MED/SURG3 Room/Bed: [facility] Procedure: [id number] DX/CHEST SINGLE (PORTABLE) Exam Date: 06/16/19 Exam [...] MD 8 COPY TO: XIN RESENDEZ MD, ABIM Sodium Xadwj5548-97-88 06:10:00* Test Item Value Reference Range Interpretation Comments Sodium Level (test code = 2951-2) 140 136-145 [facility] HospitalPotassium Orjaq7098-88-64 06:10:00* Test Item Value Reference Range Interpretation Comments Potassium Level (test code = 2823-3) 3.7 3.5-5.1 [facility] HospitalChloride Ktdfd5282-97-85 06:10:00* Test Item Value Reference Range Interpretation Comments Chloride Level (test code = 2075-0) 97 98-107 L [facility] HospitalCarbon Dioxide Lzrww6597-78-83 06:10:00* Test Item Value Reference Range Interpretation Comments Carbon Dioxide Level (test code = 2028-9) 36 22-29 H [facility] HospitalAnion Omg3298-71-43 06:10:00* Test Item Value Reference Range Interpretation Comments Anion Gap (test code = 91175-5) 10.7 8-16 [facility] HospitalBlood Urea Nfzsxovw9114-34-90 06:10:00* Test Item Value Reference Range Interpretation Comments Blood Urea Nitrogen (test code = 3094-0) 32 7-26 H [facility] HospitalCreatinine2019-08-21 06:10:00* Test Item Value Reference Range Interpretation Comments Creatinine (test code = 2160-0) 1.25 0.72-1.25 [facility] HospitalBUN/Creatinine Ikwap1015-74-97 06:10:00* Test Item Value Reference Range Interpretation Comments BUN/Creatinine Ratio (test code = 3097-3) 26 6-25 H [facility] HospitalEstimat Glomerular Filtration Rate 2019-06-16 06:10:00* Test Item Value Reference Range Interpretation Comments Estimat Glomerular Filtration Rate (test code = 672755727) 56 >60 L Ranges were taken from the National Kidney Disease Education Program and the [facility] literature.Reference ranges:60 or greater: Cpqeuz84-93 ( for 3 consecutive months): Chronic kidney disease 15 or less: Kidney failureLegent Orthopedic HospitalGlucose Zllft8928-65-46 06:10:00* Test Item Value Reference Range Interpretation Comments Glucose Level (test code = LLS1438) 114 74-118 [facility] HospitalCalcium Pqskp9208-06-39 06:10:00* Test Item Value Reference Range Interpretation Comments Calcium Level (test code = 43330-6) 9.5 8.4-10.2 [facility] HospitalMagnesium Szbfv8187-00-38 06:10:00* Test Item Value Reference Range Interpretation Comments Magnesium Level (test code = 85601-0) 1.9 1.3-2.1 [facility] HospitalWhite Blood Thpbs6625-06-17 05:44:00* Test Item Value Reference Range Interpretation Comments White Blood Count (test code = 6690-2) 4.82 4.8-10.8 [facility] HospitalRed Blood Cueqs4364-72-42 05:44:00* Test Item Value Reference Range Interpretation Comments Red Blood Count (test code = 789-8) 3.55 4.3-5.7 L [facility] HospitalHemoglobin2019-08-21 05:44:00* Test Item Value Reference Range Interpretation Comments Hemoglobin (test code = 56837-1) 9.1 14.0-18.0 L [facility] HospitalHematocrit2019-08-21 05:44:00* Test Item Value Reference Range Interpretation Comments Hematocrit (test code = 4544-3) 31.3 38.2-49.6 L [facility] HospitalMean Corpuscular Pqbwjy8996-58-90 05:44:00* Test Item Value Reference Range Interpretation Comments Mean Corpuscular Volume (test code = 787-2) 88.2 81-99 [facility] HospitalMean Corpuscular Nethyabhlp6978-16-03 05:44:00* Test Item Value Reference Range Interpretation Comments Mean Corpuscular Hemoglobin (test code = 785-6) 25.6 28-32 L [facility] HospitalMean Corpuscular Hemoglobin Concent 2019-06-16 05:44:00* Test Item Value Reference Range Interpretation Comments Mean Corpuscular Hemoglobin Concent (test code = 786-4) 29.1 31-35 L [facility] HospitalRed Cell Distribution Whllf0644-92-39 05:44:00* Test Item Value Reference Range Interpretation Comments Red Cell Distribution Width (test code = 83250-3) 14.7 11.7 -14.4 H [facility] HospitalPlatelet Iijii8476-11-06 05:44:00* Test Item Value Reference Range Interpretation Comments Platelet Count (test code = 777-3) 252 140-360 [facility] HospitalNeutrophils (%) (Auto)2019-06-16 05:44:00 * Test Item Value Reference Range Interpretation Comments Neutrophils (%) (Auto) (test code = 95049-1) 67.0 38.7-80.0 [facility] HospitalLymphocytes (%) (Auto)2019-06-16 05:44:00 * Test Item Value Reference Range Interpretation Comments Lymphocytes (%) (Auto) (test code = 736-9) 16.0 18.0-39.1 L [facility] HospitalMonocytes (%) (Auto)2019-06-16 05:44:00* Test Item Value Reference Range Interpretation Comments Monocytes (%) (Auto) (test code = 5905-5) 9.8 4.4-11.3 [facility] HospitalEosinophils (%) (Auto)2019-06-16 05:44:00 * Test Item Value Reference Range Interpretation Comments Eosinophils (%) (Auto) (test code = 713-8) 6.4 0.0-6.0 H [facility] HospitalBasophils (%) (Auto)2019-06-16 05:44:00* Test Item Value Reference Range Interpretation Comments Basophils (%) (Auto) (test code = 706-2) 0.6 0.0-1.0 [facility] HospitalIM GRANULOCYTES %2019-06-16 05:44:00* Test Item Value Reference Range Interpretation Comments IM GRANULOCYTES % (test code = IM GRANULOCYTES %) 0.2 0.0- 1.0 [facility] HospitalNeutrophils # (Auto)2019-06-16 05:44:00* Test Item Value Reference Range Interpretation Comments Neutrophils # (Auto) (test code = 751-8) 3.2 2.1-6.9 [facility] HospitalLymphocytes # (Auto)2019-06-16 05:44:00* Test Item Value Reference Range Interpretation Comments Lymphocytes # (Auto) (test code = 44030-7) 0.8 1.0-3.2 L [facility] HospitalMonocytes # (Auto)2019-06-16 05:44:00* Test Item Value Reference Range Interpretation Comments Monocytes # (Auto) (test code = 742-7) 0.5 0.2-0.8 [facility] HospitalEosinophils # (Auto)2019-06-16 05:44:00* Test Item Value Reference Range Interpretation Comments Eosinophils # (Auto) (test code = 711-2) 0.3 0.0-0.4 [facility] HospitalBasophils # (Auto)2019-06-16 05:44:00* Test Item Value Reference Range Interpretation Comments Basophils # (Auto) (test code = 704-7) 0.0 0.0-0.1 [facility] HospitalAbsolute Immature Granulocyte (auto 2019-06-16 05:44:00* Test Item Value Reference Range Interpretation Comments Absolute Immature Granulocyte (auto (bharat t code = Absolute Immature Granulocyte (auto) 0.01 0-0.1 [facility] HospitalB-Type Natriuretic Apcqjij9626-06-47 03:31:00* Test Item Value Reference Range Interpretation Comments B-Type Natriuretic Peptide (test code = 60454-6) 630.7 0-100 H [facility] HospitalTotal Zwfwgkyv8708-25-78 11:53:00* Test Item Value Reference Range Interpretation Comments Total Cortisol (test code = 2143-6) 5.5 . Cortisol AM 6.2 - 19.4 Co rtisol PM 2.3 - 11.9Performed at: [address] [id number] Director: Tito Rodriguez MD, Phone: [phone] Gqegbxww3729-60-87 11:53:00* Test Item Value Reference Range Interpretation Comments Total Cortisol (test code = 2143-6) 5.5 . Cortisol AM 6.2 - 19.4 Co rtisol PM 2.3 - 11.9Performed at: [address] [id number] Director: Tito Rodriguez MD, Phone: [phone] Medical Center Ppcwcrrt2603-99-60 11:53:00* Test Item Value Reference Range Interpretation Comments Total Cortisol (test code = 2143-6) 5.5 . Cortisol AM 6.2 - 19.4 Co rtisol PM 2.3 - 11.9Performed at: [facility] Lab[address] [id number] Director: Tito Rodriguez MD, Phone: [phone] Medical Center Xhngnxnn9378-87-80 11:53:00* Test Item Value Reference Range Interpretation Comments Total Cortisol (test code = 2143-6) 5.5 . Cortisol AM 6.2 - 19.4 Co rtisol PM 2.3 - 11.9Performed at: [address] [id number] Director: Tito Rodriguez MD, Phone: [phone] Orthopedic HospitalPhosphorus Ntsnt8508-81-44 05:15:00* Test Item Value Reference Range Interpretation Comments Phosphorus Level (test code = AEV3239) 2.7 2.3-4.7 [facility] HospitalPhosphorus Dnusq0118-78-44 05:15:00* Test Item Value Reference Range Interpretation Comments Phosphorus Level (test code = YUG2099) 2.7 2.3-4.7 [facility] HospitalPhosphorus Jcgxo8405-86-85 05:15:00* Test Item Value Reference Range Interpretation Comments Phosphorus Level (test code = ZYS2753) 2.7 2.3-4.7 [facility] HospitalPhosphorus Jzjjm6648-26-93 05:15:00* Test Item Value Reference Range Interpretation Comments Phosphorus Level (test code = IFR6491) 2.7 2.3-4.7 [facility] HospitalBlood Pgwvzfz5745-29-79 19:12:00* Test Item Value Reference Range Interpretation Comments Blood Culture (test code = 47706254) NO GROWTH AFTER 72 HOURS [facility] HospitalTotal Fouasabhv8582-25-64 07:09:00* Test Item Value Reference Range Interpretation Comments Total Bilirubin (test code = 1975-2) 0.4 0.2-1.2 [facility] HospitalAspartate Amino Transf (AST/SGOT) 2019-06-14 07:09:00* Test Item Value Reference Range Interpretation Comments Aspartate Amino Transf (AST/SGOT) (test code = Aspartate Amino Transf (AST/SGOT)) 16 5-34 [facility] HospitalAlanine Aminotransferase (ALT/SGPT) 2019-06-14 07:09:00* Test Item Value Reference Range Interpretation Comments Alanine Aminotransferase (ALT/SGPT) (test code = 1742-6) 8 0-55 [facility] HospitalTotal Caouhki3584-18-87 07:09:00* Test Item Value Reference Range Interpretation Comments Total Protein (test code = 2885-2) 5.4 6.5-8.1 L [facility] HospitalAlbumin2019-08-19 07:09:00* Test Item Value Reference Range Interpretation Comments Albumin (test code = 1751-7) 2.8 3.5-5.0 L [facility] HospitalGlobulin2019-08-19 07:09:00* Test Item Value Reference Range Interpretation Comments Globulin (test code = 83789-5) 2.6 2.3-3.5 [facility] HospitalAlbumin/Globulin Zvrfc5101-65-32 07:09:00 * Test Item Value Reference Range Interpretation Comments Albumin/Globulin Ratio (test code = 1759-0) 1.1 0.8-2.0 [facility] HospitalAlkaline Dxmrfdafprd3024-28-06 07:09:00* Test Item Value Reference Range Interpretation Comments Alkaline Phosphatase (test code = 6768-6) 73 40-150 [facility] Qwolcaxbh5925-73-22 07:36:00* Test Item Value Reference Range Interpretation Comments Free Thyroxine (test code = 3024-7) 0.86 0.8-1.8 [facility] HospitalThyroid Stimulating Hormone (TSH) 2019-06-13 07:36:00* Test Item Value Reference Range Interpretation Comments Thyroid Stimulating Hormone (TSH) (test code = 78366-5) 3.117 0.350-4.940 [facility] Smzkglfai0716-51-62 07:36:00* Test Item Value Reference Range Interpretation Comments Free Thyroxine (test code = 3024-7) 0.86 0.8-1.8 [facility] HospitalThyroid Stimulating Hormone (TSH) 2019-06-13 07:36:00* Test Item Value Reference Range Interpretation Comments Thyroid Stimulating Hormone (TSH) (test code = 07445-9) 3.117 0.350-4.940 [facility] Ovqeesafz8536-15-34 07:36:00* Test Item Value Reference Range Interpretation Comments Free Thyroxine (test code = 3024-7) 0.86 0.8-1.8 [facility] HospitalThyroid Stimulating Hormone (TSH) 2019-06-13 07:36:00* Test Item Value Reference Range Interpretation Comments Thyroid Stimulating Hormone (TSH) (test code = 88435-4) 3.117 0.350-4.940 [facility] Jopymffab2192-08-46 07:36:00* Test Item Value Reference Range Interpretation Comments Free Thyroxine (test code = 3024-7) 0.86 0.8-1.8 [facility] HospitalThyroid Stimulating Hormone (TSH) 2019-06-13 07:36:00* Test Item Value Reference Range Interpretation Comments Thyroid Stimulating Hormone (TSH) (test code = 54803-3) 3.117 0.350-4.940 [facility] HospitalHemoglobin A1c Cctgdzt9703-55-81 07:18:00 * Test Item Value Reference Range Interpretation Comments Hemoglobin A1c Percent (test code = Hemoglobin A1c Percent) 5.7 4.0-7.0 [facility] HospitalHemoglobin A1c Jtdxgcs8461-82-16 07:18:00 * Test Item Value Reference Range Interpretation Comments Hemoglobin A1c Percent (test code = Hemoglobin A1c Percent) 5.7 4.0-7.0 [facility] HospitalHemoglobin A1c Jqagesr6482-01-57 07:18:00 * Test Item Value Reference Range Interpretation Comments Hemoglobin A1c Percent (test code = Hemoglobin A1c Percent) 5.7 4.0-7.0 [facility] HospitalHemoglobin A1c Vdnxjkf0804-99-99 07:18:00 * Test Item Value Reference Range Interpretation Comments Hemoglobin A1c Percent (test code = Hemoglobin A1c Percent) 5.7 4.0-7.0 [facility] HospitalCreatine Lwckgm5717-47-04 10:22:00* Test Item Value Reference Range Interpretation Comments Creatine Kinase (test code = 2157-6) 111 30-200 [facility] HospitalCreatine Kinase BS9633-20-78 10:22:00* Test Item Value Reference Range Interpretation Comments Creatine Kinase MB (test code = 89982-2) 4.60 0-5.0 [facility] HospitalTroponin T8477-32-61 10:22:00* Test Item Value Reference Range Interpretation Comments Troponin I (test code = CVO8015) 0.015 0-0.300 [facility] HospitalCHEST SINGLE (PORTABLE)2019-06-12 06:18:00 [facility] [address] [place] [address] Patient Name: STEVE BENEDICT MR #: [id number] : 1945 Age/Sex: 73/M Req #: [id number] Adm Physician: ROSALIE SHORT MD Ordered by: RENAE SOLARES MD Report #: [id number] Location: MED/SURG3 Room/Bed: 284-1 Procedure: [id number] DX/CHEST SINGLE (PORTABLE) Exam Date: 06/12/19 Exam [...] cular congestion and interstitial edema. Signed by: Bhavna RamosO., M.M.M. on 06/12/2019 6:21 AM Dictated By: JOHN GIRARD DO Elec tronically Signed By: JOHN GIRARD DO on 06/12/19620 Transcribed By: ERAN davidson 06/12/19620 COPY TO: RENAE SOLARES MD Urine OBC7153-31-82 19:19:00* Test Item Value Reference Range Interpretation Comments Urine WBC (test code = 5821-4) 0-5 0-5 [facility] HospitalUrine KJD8038-42-51 19:19:00* Test Item Value Reference Range Interpretation Comments Urine RBC (test code = 85204-0) 0-5 0-5 [facility] HospitalUrine Mmtldlwo0840-08-82 19:19:00* Test Item Value Reference Range Interpretation Comments Urine Bacteria (test code = 53901-6) FEW NONE [facility] HospitalUrine Epithelial Tmroj3574-57-65 19:19:00 * Test Item Value Reference Range Interpretation Comments Urine Epithelial Cells (test code = 71723-4) FEW NONE [facility] HospitalUrine Nggdv2980-38-83 19:15:00* Test Item Value Reference Range Interpretation Comments Urine Color (test code = 5778-6) YELLOW YELLOW [facility] HospitalUrine Iuqyfcb9370-90-38 19:15:00* Test Item Value Reference Range Interpretation Comments Urine Clarity (test code = 21741-9) SL CLOUDY CLEAR H [facility] HospitalUrine Specific Vhwowke8328-82-60 19:15:00 * Test Item Value Reference Range Interpretation Comments Urine Specific [place] (test code = 5811-5) <=1.005 1.010-1.02 5 [facility] HospitalUrine uC2607-82-11 19:15:00* Test Item Value Reference Range Interpretation Comments Urine pH (test code = 98336-0) 6 5-7 [facility] HospitalUrine Leukocyte Mtqltcop5467-12-50 19:15:00* Test Item Value Reference Range Interpretation Comments Urine Leukocyte Esterase (test code = 87211-1) NEGATIVE NEGATIV E [facility] HospitalUrine Eqjrnob0023-62-62 19:15:00* Test Item Value Reference Range Interpretation Comments Urine Nitrite (test code = 28035-4) NEGATIVE NEGATIVE [facility] HospitalUrine Dmyhxam4910-12-31 19:15:00* Test Item Value Reference Range Interpretation Comments Urine Protein (test code = 59380-3) NEGATIVE NEGATIVE [facility] HospitalUrine Glucose (UA)2019-06-11 19:15:00* Test Item Value Reference Range Interpretation Comments Urine Glucose (UA) (test code = 10465-2) NEGATIVE NEGATIVE [facility] HospitalUrine Potytxp9512-00-75 19:15:00* Test Item Value Reference Range Interpretation Comments Urine Ketones (test code = 65112-9) NEGATIVE NEGATIVE [facility] HospitalUrine Mjmhxflowciu6599-54-71 19:15:00* Test Item Value Reference Range Interpretation Comments Urine Urobilinogen (test code = 94602-9) 0.2 0.2-1 [facility] HospitalUrine Zysvydkri3164-58-04 19:15:00* Test Item Value Reference Range Interpretation Comments Urine Bilirubin (test code = 1977-8) NEGATIVE NEGATIVE [facility] HospitalUrine Qwgbm4531-88-13 19:15:00* Test Item Value Reference Range Interpretation Comments Urine Blood (test code = 23215-9) NEGATIVE NEGATIVE [facility] HospitalActivated Partial Thromboplast Time 2019-06-11 16:11:00* Test Item Value Reference Range Interpretation Comments Activated Partial Thromboplast Time (test code = 87013-4) 49.1 23.8-35.5 H [facility] HospitalProthrombin Hspw5683-64-06 16:10:00* Test Item Value Reference Range Interpretation Comments Prothrombin Time (test code = 5902-2) 19.1 11.9-14.5 H [facility] HospitalProthromb Time International Ratio 2019-06-11 16:10:00* Test Item Value Reference Range Interpretation Comments Prothromb Time International Ratio (test code = 6301-6) 1.54 Oral Anticoagulant Therapy INR Values:1. Low Intensity Therapy 1.5 - 2.02 . Moderate Intensity Therapy 2.0 - 3.03. High Intensity Therapy(1) 2.5 - 3. 54. High Intensity Therapy(2) 3.0 - 4.05. Panic Value INR > 5.0 [facility] HospitalCHEST SINGLE (PORTABLE)2019-06-11 15:51:00 [place] [address] Patient Name: STEVE BENEDICT MR #: [id number] : 1945 Age/Sex: 73/M Req #: [id number] Adm Physician: Ordered by: JAIR RESENDEZ GROUP ACTIVITIES AIDE Report #: [id number] Location: ER Room/Bed: Procedure: [id number] DX/CHEST SINGLE (PORTABLE) Exam Date: 06/11/19 Exam [...] 3:52 PM Dictated By: JAMA BERTRAND MD 51 Transcribed By: ERAN on 06/11/191551 CO PY TO: JAIR RESENDEZ [employer]IV[employer] AIDE Bedside Zgedpvt2241-63-52 12:32:00* Test Item Value Reference Range Interpretation Comments Bedside Glucose (test code = 90208-1) 89 70-120 Meter ID: [id number] [facility] Level 2019-05-28 05:58:00* Test Item Value Reference Range Interpretation Comments Sodium Level (test code = 2951-2) 141 136-145 [facility] HospitalPotassium Zenjo0244-56-52 05:58:00* Test Item Value Reference Range Interpretation Comments Potassium Level (test code = 2823-3) 3.8 3.5-5.1 [facility] HospitalChloride Bzhkc5501-26-90 05:58:00* Test Item Value Reference Range Interpretation Comments Chloride Level (test code = 2075-0) 88 98-107 L [facility] HospitalCarbon Dioxide Ocmxl1085-61-81 05:58:00* Test Item Value Reference Range Interpretation Comments Carbon Dioxide Level (test code = 2028-9) 43 22-29 HH Results repeated and called to SAVANA KAPADIA RN at 0556 on 05/28/19 by Shruthi Rivera. Read back and verified.[facility] HospitalAnion Quy8855-82-16 05:58:00* Test Item Value Reference Range Interpretation Comments Anion Gap (test code = 53894-4) 13.8 8-16 [facility] HospitalBlood Urea Cfqxysoo6440-16-14 05:58:00* Test Item Value Reference Range Interpretation Comments Blood Urea Nitrogen (test code = 3094-0) 43 7-26 H [facility] HospitalCreatinine2019-08-02 05:58:00* Test Item Value Reference Range Interpretation Comments Creatinine (test code = 2160-0) 1.68 0.72-1.25 H [facility] HospitalBUN/Creatinine Gzvvo9791-61-22 05:58:00* Test Item Value Reference Range Interpretation Comments BUN/Creatinine Ratio (test code = 3097-3) 26 6-25 H [facility] HospitalEstimat Glomerular Filtration Rate 2019-05-28 05:58:00* Test Item Value Reference Range Interpretation Comments Estimat Glomerular Filtration Rate (test code = 851224514) 40 >60 L Ranges were taken from the National Kidney Disease Education Program and the [place] [facility] [employer] literature.Reference ranges:60 or greater: Njvsdq64-75 ( for 3 consecutive months): Chronic kidney disease 15 or less: Kidney failureLegent Orthopedic HospitalGlucose Yhscc5673-09-83 05:58:00* Test Item Value Reference Range Interpretation Comments Glucose Level (test code = MZS7025) 98 74-118 [facility] HospitalCalcium Snqqu0870-53-04 05:58:00* Test Item Value Reference Range Interpretation Comments Calcium Level (test code = 57452-8) 9.5 8.4-10.2 [facility] HospitalWhite Blood Zvrjn6810-78-76 05:07:00* Test Item Value Reference Range Interpretation Comments White Blood Count (test code = 6690-2) 4.69 4.8-10.8 L [facility] HospitalRed Blood Alamy6300-25-13 05:07:00* Test Item Value Reference Range Interpretation Comments Red Blood Count (test code = 789-8) 3.65 4.3-5.7 L [facility] HospitalHemoglobin2019-08-02 05:07:00* Test Item Value Reference Range Interpretation Comments Hemoglobin (test code = 58759-4) 9.9 14.0-18.0 L [facility] HospitalHematocrit2019-08-02 05:07:00* Test Item Value Reference Range Interpretation Comments Hematocrit (test code = 4544-3) 32.7 38.2-49.6 L [facility] HospitalMean Corpuscular Mapgkq4977-91-57 05:07:00* Test Item Value Reference Range Interpretation Comments Mean Corpuscular Volume (test code = 787-2) 89.6 81-99 [facility] HospitalMean Corpuscular Cjjherygfq9189-91-05 05:07:00* Test Item Value Reference Range Interpretation Comments Mean Corpuscular Hemoglobin (test code = 785-6) 27.1 28-32 [facility] Corp[facility] Hemoglobin Concent 2019-05-28 05:07:00* Test Item Value Reference Range Interpretation Comments Mean Corpuscular Hemoglobin Concent (test code = 786-4) 30.3 31-35 L [facility] HospitalRed Cell Distribution Bmiep0601-58-37 05:07:00* Test Item Value Reference Range Interpretation Comments Red Cell Distribution Width (test code = 27978-3) 15.2 11.7 -14.4 H [facility] HospitalPlatelet Qaakq6224-02-08 05:07:00* Test Item Value Reference Range Interpretation Comments Platelet Count (test code = 777-3) 194 140-360 [facility] HospitalNeutrophils (%) (Auto)2019-05-28 05:07:00 * Test Item Value Reference Range Interpretation Comments Neutrophils (%) (Auto) (test code = 67921-7) 54.5 38.7-80.0 [facility] HospitalLymphocytes (%) (Auto)2019-05-28 05:07:00 * Test Item Value Reference Range Interpretation Comments Lymphocytes (%) (Auto) (test code = 736-9) 23.2 18.0-39.1 [facility] HospitalMonocytes (%) (Auto)2019-05-28 05:07:00* Test Item Value Reference Range Interpretation Comments Monocytes (%) (Auto) (test code = 5905-5) 15.1 4.4-11.3 H [facility] HospitalEosinophils (%) (Auto)2019-05-28 05:07:00 * Test Item Value Reference Range Interpretation Comments Eosinophils (%) (Auto) (test code = 713-8) 6.4 0.0-6.0 H [facility] HospitalBasophils (%) (Auto)2019-05-28 05:07:00* Test Item Value Reference Range Interpretation Comments Basophils (%) (Auto) (test code = 706-2) 0.6 0.0-1.0 [facility] HospitalIM GRANULOCYTES %2019-05-28 05:07:00* Test Item Value Reference Range Interpretation Comments IM GRANULOCYTES % (test code = IM GRANULOCYTES %) 0.2 0.0- 1.0 [facility] HospitalNeutrophils # (Auto)2019-05-28 05:07:00* Test Item Value Reference Range Interpretation Comments Neutrophils # (Auto) (test code = 751-8) 2.6 2.1-6.9 [facility] HospitalLymphocytes # (Auto)2019-05-28 05:07:00* Test Item Value Reference Range Interpretation Comments Lymphocytes # (Auto) (test code = 59192-8) 1.1 1.0-3.2 [facility] HospitalMonocytes # (Auto)2019-05-28 05:07:00* Test Item Value Reference Range Interpretation Comments Monocytes # (Auto) (test code = 742-7) 0.7 0.2-0.8 [facility] HospitalEosinophils # (Auto)2019-05-28 05:07:00* Test Item Value Reference Range Interpretation Comments Eosinophils # (Auto) (test code = 711-2) 0.3 0.0-0.4 [facility] HospitalBasophils # (Auto)2019-05-28 05:07:00* Test Item Value Reference Range Interpretation Comments Basophils # (Auto) (test code = 704-7) 0.0 0.0-0.1 [facility] HospitalAbsolute Immature Granulocyte (auto 2019-05-28 05:07:00* Test Item Value Reference Range Interpretation Comments Absolute Immature Granulocyte (auto (bharat t code = Absolute Immature Granulocyte (auto) 0.01 0-0.1 [facility] HospitalBlood Drlydzv4549-46-97 18:36:00* Test Item Value Reference Range Interpretation Comments Blood Culture (test code = 05221491) NO GROWTH AFTER 24 HOURS [facility] HospitalCT BRAIN GB7172-29-52 14:11:00 [place] [address] Patient Name: STEVE BENEDICT MR #: [id number] : 1945 Age/Sex: 73/M Req #: [id number] Adm Physician: ROSALIE SHORT MD Ordered by: Samara Das GROUP ACTIVITIES AIDE Report #: [id number] Location: [facility] Room/Bed: [facility] Procedure: [id number] C T/CT BRAIN WO Exam Date: 05/27/19 [...] By: JAGJIT TURNER MD 1412 Transcribed By: ERNA on 05/27/19 1412 COPY TO: SAMARA DAS MRI BRAIN AO6821-38-52 14:08:00 [place] [address] Patient Name: STEVE BENEDICT MR #: [id number] : 1945 Age/Sex: 73/M Req #: [id number] Adm Physician: ROSALIE SHORT MD Ordered by: Samara Das GROUP ACTIVITIES AIDE Report #: [id number] Location: MED/SURG2 Room/Bed: [facility] Procedure: [id number] M RI/MRI BRAIN WO Exam Date: Exam [...] Comments B-Type Natriuretic Peptide (test code = 62040-6) 328.4 0-100 H [facility] HospitalMagnesium Wunuw4482-76-83 08:44:00* Test Item Value Reference Range Interpretation Comments Magnesium Level (test code = 38271-9) 2.2 1.3-2.1 H [facility] HospitalLactic Acid Vdsdk6125-01-80 21:03:00* Test Item Value Reference Range Interpretation Comments Lactic Acid Level (test code = Lactic Acid Level) 14.1 4.5- 19.8 [facility] HospitalLactic Acid Ttqyr2694-20-26 21:03:00* Test Item Value Reference Range Interpretation Comments Lactic Acid Level (test code = Lactic Acid Level) 14.1 4.5- 19.8 [facility] HospitalUrine EBU8020-37-05 18:55:00* Test Item Value Reference Range Interpretation Comments Urine WBC (test code = 5821-4) 0-5 0-5 [facility] HospitalUrine XJM2973-07-39 18:55:00* Test Item Value Reference Range Interpretation Comments Urine RBC (test code = 83918-3) NONE 0-5 [facility] HospitalUrine Dznrkwzo4646-32-32 18:55:00* Test Item Value Reference Range Interpretation Comments Urine Bacteria (test code = 76456-7) NONE NONE [facility] HospitalUrine Epithelial Jffpa8672-33-78 18:55:00 * Test Item Value Reference Range Interpretation Comments Urine Epithelial Cells (test code = 08784-0) RARE NONE [facility] HospitalUrine Renal Epithelial Hqdat7408-66-26 18:55:00* Test Item Value Reference Range Interpretation Comments Urine Renal Epithelial Cells (test code = 63870-4) RARE NON E H [facility] Epithelial Kvvml8556-63-36 18:55:00* Test Item Value Reference Range Interpretation Comments Urine Renal Epithelial Cells (test code = 20027-0) RARE NON E H [facility] Renal Epithelial Bbwzz0794-66-80 18:55:00* Test Item Value Reference Range Interpretation Comments Urine Renal Epithelial Cells (test code = 10817-4) RARE NON E H [facility] Epithelial Zthqx9257-63-90 18:55:00* Test Item Value Reference Range Interpretation Comments Urine Renal Epithelial Cells (test code = 47950-1) RARE NON E H [facility] Renal Epithelial Hjiuv5791-81-04 18:55:00* Test Item Value Reference Range Interpretation Comments Urine Renal Epithelial Cells (test code = 42615-0) RARE NON E H [facility] Krltu7043-54-71 18:43:00* Test Item Value Reference Range Interpretation Comments Urine Color (test code = 5778-6) YELLOW YELLOW [facility] Wzrcyoi8694-25-66 18:43:00* Test Item Value Reference Range Interpretation Comments Urine Clarity (test code = 22783-5) CLEAR CLEAR [facility] Hospital[facility] Specific Xkgkfpn6234-75-36 18:43:00 * Test Item Value Reference Range Interpretation Comments Urine Specific [place] (test code = 5811-5) 1.010 1.010-1.02 5 [facility] eC9150-27-81 18:43:00* Test Item Value Reference Range Interpretation Comments Urine pH (test code = 80440-3) 7 5-7 [facility] Leukocyte Bkpmqblw3154-30-43 18:43:00* Test Item Value Reference Range Interpretation Comments Urine Leukocyte Esterase (test code = 95781-5) NEGATIVE NEGATIV E [facility] Bvxeruv2335-23-25 18:43:00* Test Item Value Reference Range Interpretation Comments Urine Nitrite (test code = 07518-7) NEGATIVE NEGATIVE [facility] Pgslzfy0496-09-01 18:43:00* Test Item Value Reference Range Interpretation Comments Urine Protein (test code = 01932-0) NEGATIVE NEGATIVE [facility] Glucose (UA)2019-05-26 18:43:00* Test Item Value Reference Range Interpretation Comments Urine Glucose (UA) (test code = 05221-8) NEGATIVE NEGATIVE [facility] Jwrrzbw0662-36-20 18:43:00* Test Item Value Reference Range Interpretation Comments Urine Ketones (test code = 38945-2) NEGATIVE NEGATIVE [facility] Mvcdqoejvwzp8229-10-85 18:43:00* Test Item Value Reference Range Interpretation Comments Urine Urobilinogen (test code = 02663-0) 0.2 0.2-1 [facility] Kzylazaaq7674-30-62 18:43:00* Test Item Value Reference Range Interpretation Comments Urine Bilirubin (test code = 1977-8) NEGATIVE NEGATIVE [facility] Vpkxm2695-92-07 18:43:00* Test Item Value Reference Range Interpretation Comments Urine Blood (test code = 09687-1) NEGATIVE NEGATIVE [facility] HospitalCHEST 2 GQVZC2201-78-92 16:20:00 [facility] [address] [address] Patient Name: STEVE BENEDICT MR #: [id number] : 1945 Age/Sex: 73/M Req #: [id number] Adm Physician: Ordered by: TROY CODY MD Report #: [id number] Location: ER Room/Bed: Procedure: [id number] D X/CHEST 2 VIEWS Exam Date: 05/26/19 [...] 4:21 PM Dictated By: ERNESTINE HOUSER MD 162 COPY TO: Elyssa CODY MD Creatine Kinase [id number] 15:20:00* Test Item Value Reference Range Interpretation Comments Creatine Kinase MB (test code = 48328-1) 2.80 0-5.0 [facility] HospitalTroponin A6728-31-29 15:20:00* Test Item Value Reference Range Interpretation Comments Troponin I (test code = CBF2254) 0.013 0-0.300 [facility] HospitalTotal Vkqixobkb6881-79-30 15:15:00* Test Item Value Reference Range Interpretation Comments Total Bilirubin (test code = 1975-2) 0.4 0.2-1.2 [facility] HospitalAspartate Amino Transf (AST/SGOT) 2019-05-26 15:15:00* Test Item Value Reference Range Interpretation Comments Aspartate Amino Transf (AST/SGOT) (test code = Aspartate Amino Transf (AST/SGOT)) 13 5-34 [facility] HospitalAlanine Aminotransferase (ALT/SGPT) 2019-05-26 15:15:00* Test Item Value Reference Range Interpretation Comments Alanine Aminotransferase (ALT/SGPT) (test code = 1742-6) 10 0-55 [facility] HospitalTotal Bkbzhto7993-29-42 15:15:00* Test Item Value Reference Range Interpretation Comments Total Protein (test code = 2885-2) 6.5 6.5-8.1 [facility] HospitalAlbumin2019-07-31 15:15:00* Test Item Value Reference Range Interpretation Comments Albumin (test code = 1751-7) 3.3 3.5-5.0 L [facility] HospitalGlobulin2019-07-31 15:15:00* Test Item Value Reference Range Interpretation Comments Globulin (test code = 94031-1) 3.2 2.3-3.5 [facility] HospitalAlbumin/Globulin Dixgm2331-97-46 15:15:00 * Test Item Value Reference Range Interpretation Comments Albumin/Globulin Ratio (test code = 1759-0) 1.0 0.8-2.0 [facility] HospitalAlkaline Pkmuatgurrj2362-12-12 15:15:00* Test Item Value Reference Range Interpretation Comments Alkaline Phosphatase (test code = 6768-6) 109 40-150 [facility] HospitalCreatine Pcrtoy7910-95-81 15:15:00* Test Item Value Reference Range Interpretation Comments Creatine Kinase (test code = 2157-6) 89 30-200 [facility] HospitalLipase2019-07-31 15:15:00* Test Item Value Reference Range Interpretation Comments Lipase (test code = 3040-3) [facility] HospitalLipase2019-07-31 15:15:00* Test Item Value Reference Range Interpretation Comments Lipase (test code = 3040-3) [facility]2019-07-31 15:15:00* Test Item Value Reference Range Interpretation Comments Lipase (test code = 3040-3) [facility] HospitalLipase2019-07-31 15:15:00* Test Item Value Reference Range Interpretation Comments Lipase (test code = 3040-3) [facility] HospitalLipase2019-07-31 15:15:00* Test Item Value Reference Range Interpretation Comments Lipase (test code = 3040-3) [facility] HospitalCHEST SINGLE (PORTABLE)2019-05-26 15:08:00 [facility] [address] [place] [address] Patient Name: STEVE BENEDICT MR #: [id number] : 1945 Age/Sex: 73/M Req #: [id number] Adm Physician: Ordered by: TROY CODY MD Report #: [id number] Location: Room/Bed: Procedure: [id number] D X/CHEST SINGLE (PORTABLE) Exam Date: 05/26/19 [...] TO: TROY CODY MD Activated Partial Thromboplast Hwug5873-73-90 15:05:00* Test Item Value Reference Range Interpretation Comments Activated Partial Thromboplast Time (test code = 63922-3) 56.4 23.8-35.5 H [facility] HospitalProthrombin Teue8042-42-83 15:04:00* Test Item Value Reference Range Interpretation Comments Prothrombin Time (test code = 5902-2) 18.3 11.9-14.5 H [facility] HospitalProthromb Time International Ratio 2019-05-26 15:04:00* Test Item Value Reference Range Interpretation Comments Prothromb Time International Ratio (test code = 6301-6) 1.46 Oral Anticoagulant Therapy INR Values:1. Low Intensity Therapy 1.5 - 2.02 . Moderate Intensity Therapy 2.0 - 3.03. High Intensity Therapy(1) 2.5 - 3. 54. High Intensity Therapy(2) 3.0 - 4.05. Panic Value INR > 5.0 [facility] HospitalURINE AND UWYDT5274-22-49 17:35:00Trace *NA*(05/18/19 12:35 PM)[facility] ASGVJ3407-53-47 17:35:00Negative *NA*(05/18/19 12:35 PM)[facility] FNNQW2061-41-58 17:35:000.2 [facility] UEGKG9951-67-01 17:35:00Positive *ABN*(05/18/19 12:35 PM)[facility] MMBUX6851-79-12 17:35:00Small *ABN*(05/18/19 12:35 PM)[facility] XTSVL9983-77-96 17:35:00Yellow *NA*(05/18/19 12:35 PM)[facility] ALJDK2292-47-23 17:35:00Clear *NA*(05/18/19 12:35 PM)[facility] ILJTG0188-86-31 17:35:00* Test Item Value Reference Range Interpretation Comments POC UA SG (test code = POC UA SG) 1.015 1 [facility] JCEPM6829-72-89 17:35:00* Test Item Value Reference Range Interpretation Comments POC UA pH (test code = POC UA pH) 6.5 1 5.0-8.0 [facility] HEAD/BRAIN W/O JKBD2724-85-10 05:58:00 Name: STEVE BENEDICT [facility] : 1945 Age/S: 73 / M [address] [facility] Unit #: [id number] Loc: [place] [address] Phys: Bernard Coon MD Acct: [id number] Dis Date: Status: REG ER PHONE #: [phone] Exam Date: 05/05/2019 044 FAX #: [phone] Reason: Pain s/p Fall EXAMS: CPT CODE: [id number] CT HEAD/BRAIN W/O CONT 04841 EXAM: - CT HEAD/BRAIN W/O CONT Location [...] PAGE 1 Signed Report (CONTINUED) [facility] : 1945 Age/S: 73 / M [address] [facility] Unit #: [id number] Loc: [place] [address] [facility] s: Bernard Coon MD Acct: [id number] Dis Date: Status: REG ER PHONE #: [phone] Exam Date: 05/05/2019 0440 FAX #: [phone] Reason: Pain s/p Fall EXAMS: CPT CODE: [id number] CT HEAD/BRAIN W/O CONT 32113 <Continued> at 0558 Reported and signed by: Garry Hughes MD CC: Bernard Coon MD; Teofilo Summers MD Tech nologist:CEASAR CLARK RT(R),RDMS,CT CTDI: DLP: Trnscb Date/Ti me: 05/05/2019 (0558) tPEDRO [email or web address] Orig Print D/T: S: 2018 (0601) PAGE 2 Signed Report - CT CHEST W/O STEXWKEA4236-66-49 05:52:00 Name: STEVE BENEDICT [facility] : 1945 Age/S: 73 / M [address] [place] [address] Unit #: [id number] Loc: [place] [address] Phys: Bernard Coon MD Acct: [id number] Dis Date: Status: REG ER PHONE #: [phone] Exam Date: 05/05/2019 044 FAX #: [phone] Reason: Pain s/p Fall EXAMS: CPT CODE: [id number] CT CHEST W/O CONTRAST 45766 HISTORY: Pain and fall COMPARISON:None TECHNIQUE: Axial [...] 1 Signed Report (CONTINUED) [facility] 1945 Age/S: 73 / M [address] [place] [address] Unit #: [id number] Lo c: [place] [address] Phys: Bernard Coon MD Acct: [id number] Dis Date: Status: REG ER PHONE #: [phone] Exam Date: 05/05/2019439 FAX #: [phone] Reason: Pain s/p Fall EXAMS: CPT CODE: [id number] CT CHEST W/O CONTRAST 58714 <Continued> Degenerative changes of the spine and [...] Technologist:CEASAR CLARK(R),RDMS,CT CTDI: DLP: Trnscb Date/Time: 05/05/2019 (0552) [email or web address] Orig Print D/T: S: 05/05/2019 (0555) PAGE 2 Signed Report - CT ABD PELVIS W/O AKIT1229-00-84 05:52:00 Name: STEVE BENEDICT [facility] : 1945 Age/S: 73 / M [address] [facility] Unit #: [id number] Loc: [place] [address] Phys: Hannon MD Acct: [id number] Di s Date: Status: REG ER PHONE #: Exam Date: 05/05/2019439 FAX #: Reason: Pain s/p Fall EXAMS: CPT CODE: [id number] CT ABD PELVIS W/O CONT 40697 HISTORY: Pain and fall COMPARISON:None TECHNIQUE: Axial [...] abscess. PAGE 1 Signed Report (CONTINUED) Name: TALIB CAGE,STEVE [facility] : 1945 Age/S: 73 / M [address] [facility] Unit #: [id number] Lo c: [place] [address] Phys: Bernard Coon MD Acct: [id number] Dis Date: Status: REG ER PHONE #: [phone] Exam Date: 05/05/2019 0440 FAX #: [phone] Reason: Pain s/p Fall EXAMS: CPT CODE: [id number] CT ABD PELVIS W/O CONT 76347 <Continued> Degenerative changes of the spine and [...] Bernard Coon MD; Teofilo Summers MD Technologist:CEASAR CLARK(Kriss),RDMS,CT CTDI: DLP: Trnscb Date/Time: 05/05/2019 (0552) Chloe.[email or web address] Orig Print D/T: S: 05/05/2019 (0555) PAGE 2 Signed Report - CT C-SPINE W/O FZLAILMN4593-25-89 05:51:00 Name: STEVE BENEDICT [facility] : 1945 Age/S: 73 / M [address] [facility] Unit #: [id number] Loc: [place] [address] Phys: Hannon MD Acct: [id number] Di s Date: Status: REG ER PHONE #: Exam Date: 05/05/2019 044 FAX #: [phone] Reason: Pain s/p Fall EXAMS: CPT CODE: [id number] CT C-SPINE W/O CONTRAST 47252 EXAM: - CT C-SPINE W/O C ONTRAST [...] Technologist:CEASAR CLARK(R),RDMS,CT CTDI: DLP: Trnscb Date/Time: 05/05/2019 (0524) [email or web address] Orig Print D/T: S: 05/05/2019 (0560) PAGE 1 Signed Report - XR ELBOW 3 + V [id number] 05:45:00 Name: STEVE BENEDICT [facility] : 1945 Age/S:73 /M [facility] Unit#:[id number] Loc: [place] [address] Phys: Hannon MD Dis Date: PHONE #: [phone] Status: REG ER FAX #: [phone] Exam Date: 05/05/2019 Re ason: S/P FALL EXAMS: CPT CODE: [id number] XR ELBOW 3 + V RT [address] HISTORY: Pain Location: C3 FINDINGS: Right elbow: [...] CLARK RT(R),RDMS,CT Trnscrpt Keshav a: 05/05/2019 (0545) [email or web address] Orig Print D/T: S: 05/05 (0548) PAGE 1 Signed Report - XR ELBOW 3 + V [id number] 05:45:00 Name: STEVE BENEDICT [facility] : 1945 Age/S:73 /M [facility] Unit#:[id number] Loc: [place] [address] Phys: Hannon MD Dis Date: PHONE #: [phone] Status: REG ER FAX #: [phone] Exam Date: 05/05/2019 Re ason: Pain s/p Fall EXAMS: CPT CODE: [id number] XR ELBOW 3 + V LT [address] HISTORY: Pain Location: C3 FINDINGS: Right elbow: [...] Report - XR WRIST 3 + V [id number] 05:45:00 Name: STEVE BENEDICT [facility] : 1945 Age/S:73 /M [address] [facility] Unit#:[id number] Loc: [place] [address] Phys: Hannon MD Dis Date: PHONE #: [phone] Status: REG ER FAX #: [phone] Exam Date: 05/05/2019 Re ason: Pain s/p Fall EXAMS: CPT CODE: [id number] XR WRIST 3 + V RT 269[address] HISTORY: Pain Location: C3 FINDINGS: Right elbow: [...] MD; Teofilo Summers MD T echnologist: CEASAR CLARK(R),RDMS,CT Trnscrpt Keshav a: 05/05/2019 (0545) [email or web address] Orig Print D/T: S: 05/05 (0548) PAGE 1 Signed Report - XR WRIST 3 + V [id number] 05:45:00 Name: STEVE BENEDICT [facility] : 1945 Age/S:73 /M [address] [facility] Unit#:[id number] [place]: [place] [address] Phys: Hannon MD Dis Date: PHONE #: [phone] Status: [facility] ER FAX #: [phone] Exam Date: 05/05/2019 Re ason: Pain s/p Fall EXAMS: CPT CODE: [id number] XR WRIST 3 + V RT [address] HISTORY: Pain Location: C3 FINDINGS: Right elbow: [...] CEASAR CLARK RT(R),RDMS,CT Trnscrpt Keshav a: 05/05/2019 (3730) [email or web address] Orig Print D/T: S: 05/05 (6834) PAGE 1 Signed Report BASIC METABOLIC [id number] 04:50:00* Test Item Value Reference Range Interpretation [...] CA) 8.9 mg/dL 8.4-10.2 N HEPATIC FUNCTION FONBV6335-03-04 04:50:00* Test Item Value Reference Range Interpretation [...] code = ALKP) 98 U/L 38-126 N JVWYGOMIJ0357-01-82 04:50:00* Test Item Value Reference Range Interpretation Comments MAGNESIUM (test code = MAG) 2.4 mg/dL 1.6-2.3 H JYQZGGHZ-G1880-96-10 04:50:00* Test Item Value Reference Range Interpretation Comments TROPONIN-I (test code = TROPI) 0.02 ng/mL 0.00-0.056 N BASIC METABOLIC NCQSR9058-09-66 04:48:00* Test Item Value Reference Range Interpretation [...] CA) 8.9 mg/dL 8.4-10.2 N HEPATIC FUNCTION BRMSY7384-49-82 04:48:00* Test Item Value Reference Range Interpretation [...] code = ALKP) 98 U/L 38-126 N LNNTEFKBF4430-90-14 04:48:00* Test Item Value Reference Range Interpretation Comments MAGNESIUM (test code = MAG) 2.4 mg/dL 1.6-2.3 H SGKPIULP-D5555-32-10 04:48:00* Test Item Value Reference Range Interpretation Comments TROPONIN-I (test code = TROPI) 0.02 ng/mL 0.00-0.056 N PROTHROMBIN SNIV6557-04-61 04:44:00* Test Item Value Reference Range Interpretation [...] CA) 8.9 mg/dL 8.4-10.2 N HEPATIC FUNCTION QZQLL0370-32-83 04:43:00* Test Item Value Reference Range Interpretation [...] TOTAL (test code = ALKP) IUnit/L 45-117 VKPUVBICS9978-98-44 04:43:00* Test Item Value Reference Range Interpretation Comments MAGNESIUM (test code = MAG) mg/dL 1.8-2.4 HHXANVYP-J4248-00-10 04:43:00* Test Item Value Reference Range Interpretation Comments TROPONIN-I (test code = TROPI) ng/mL 0-0.045 CBC W/AUTO FMHD1719-65-04 04:30:00* Test Item Value Reference Range Interpretation [...] REQUIRED (test code = MDIFF) NO Bedside Jwjzkeg6309-16-52 09:07:00* Test Item Value Reference Range Interpretation Comments Bedside Glucose (test code = 48581-5) 126 70-120 H Meter ID: [id number] [facility] Level 2019-05-04 06:01:00* Test Item Value Reference Range Interpretation Comments Sodium Level (test code = 2951-2) 138 136-145 [facility] HospitalPotassium Gvvvr2446-09-69 06:01:00* Test Item Value Reference Range Interpretation Comments Potassium Level (test code = 2823-3) 3.5 3.5-5.1 [facility] HospitalChloride Jslzj2991-65-03 06:01:00* Test Item Value Reference Range Interpretation Comments Chloride Level (test code = 2075-0) 81 98-107 L [facility] HospitalCarbon Dioxide Uxnat6557-40-94 06:01:00* Test Item Value Reference Range Interpretation Comments Carbon Dioxide Level (test code = 2028-9) 43 22-29 HH Results repeated and called to AMINA LEWIS RN at 0600 on 05/04/19 by Roula kincaid Read back and verified.[facility] HospitalAnion Gap 2019-05-04 06:01:00* Test Item Value Reference Range Interpretation Comments Anion Gap (test code = 60722-9) 17.5 8-16 H [facility] HospitalBlood Urea Ghpiqzck3302-10-13 06:01:00* Test Item Value Reference Range Interpretation Comments Blood Urea Nitrogen (test code = 3094-0) 95 7-26 H [facility] HospitalCreatinine2019-07-09 06:01:00* Test Item Value Reference Range Interpretation Comments Creatinine (test code = 2160-0) 2.57 0.72-1.25 H [facility] HospitalBUN/Creatinine Qevos0132-98-02 06:01:00* Test Item Value Reference Range Interpretation Comments BUN/Creatinine Ratio (test code = 3097-3) 37 6-25 H [facility] HospitalEstimat Glomerular Filtration Rate 2019-05-04 06:01:00* Test Item Value Reference Range Interpretation Comments Estimat Glomerular Filtration Rate (test code = 363254650) 25 >60 L Ranges were taken from the National Kidney Disease Education Program and the [facility] literature.Reference ranges:60 or greater: Occogj01-03 ( for 3 consecutive months): Chronic kidney disease 15 or less: Kidney failureCHI Citizens Medical CenterGlucose Onlgd6453-09-71 06:01:00* Test Item Value Reference Range Interpretation Comments Glucose Level (test code = FGU9288) 120 74-118 H [facility] HospitalCalcium Yczie7224-99-51 06:01:00* Test Item Value Reference Range Interpretation Comments Calcium Level (test code = 86991-0) 10.2 8.4-10.2 [facility] HospitalMagnesium Phnci6002-97-46 06:01:00* Test Item Value Reference Range Interpretation Comments Magnesium Level (test code = 73282-7) 3.1 1.3-2.1 H [facility] HospitalB-Type Natriuretic Xledrvw6388-43-20 05:55:00* Test Item Value Reference Range Interpretation Comments B-Type Natriuretic Peptide (test code = 45569-0) 175.1 0-100 H [facility] HospitalWhite Blood Daaky0741-53-25 05:32:00* Test Item Value Reference Range Interpretation Comments White Blood Count (test code = 6690-2) 10.03 4.8-10.8 [facility] HospitalRed Blood Dpmkq8131-56-94 05:32:00* Test Item Value Reference Range Interpretation Comments Red Blood Count (test code = 789-8) 5.79 4.3-5.7 H [facility] HospitalHemoglobin2019-07-09 05:32:00* Test Item Value Reference Range Interpretation Comments Hemoglobin (test code = 21866-0) 16.2 14.0-18.0 [facility] HospitalHematocrit2019-07-09 05:32:00* Test Item Value Reference Range Interpretation Comments Hematocrit (test code = 4544-3) 51.0 38.2-49.6 H [facility] HospitalMean Corpuscular Jbobfj9622-08-54 05:32:00* Test Item Value Reference Range Interpretation Comments Mean Corpuscular Volume (test code = 787-2) 88.1 81-99 [facility] HospitalMean Corpuscular Abvdgjeqsn7435-00-37 05:32:00* Test Item Value Reference Range Interpretation Comments Mean Corpuscular Hemoglobin (test code = 785-6) 28.0 28-32 [facility] HospitalMean Corpuscular Hemoglobin Concent 2019-05-04 05:32:00* Test Item Value Reference Range Interpretation Comments Mean Corpuscular Hemoglobin Concent (test code = 786-4) 31.8 31-35 [facility] HospitalRed Cell Distribution Atmgb7788-58-52 05:32:00* Test Item Value Reference Range Interpretation Comments Red Cell Distribution Width (test code = 86279-5) 14.8 11.7 -14.4 H [facility] HospitalPlatelet Alecn3377-57-43 05:32:00* Test Item Value Reference Range Interpretation Comments Platelet Count (test code = 777-3) 292 140-360 [facility] HospitalNeutrophils (%) (Auto)2019-05-04 05:32:00 * Test Item Value Reference Range Interpretation Comments Neutrophils (%) (Auto) (test code = 97084-1) 77.1 38.7-80.0 [facility] HospitalLymphocytes (%) (Auto)2019-05-04 05:32:00 * Test Item Value Reference Range Interpretation Comments Lymphocytes (%) (Auto) (test code = 736-9) 14.1 18.0-39.1 L [facility] HospitalMonocytes (%) (Auto)2019-05-04 05:32:00* Test Item Value Reference Range Interpretation Comments Monocytes (%) (Auto) (test code = 5905-5) 8.2 4.4-11.3 [facility] HospitalEosinophils (%) (Auto)2019-05-04 05:32:00 * Test Item Value Reference Range Interpretation Comments Eosinophils (%) (Auto) (test code = 713-8) 0.0 0.0-6.0 [facility] HospitalBasophils (%) (Auto)2019-05-04 05:32:00* Test Item Value Reference Range Interpretation Comments Basophils (%) (Auto) (test code = 706-2) 0.1 0.0-1.0 [facility] HospitalIM GRANULOCYTES %2019-05-04 05:32:00* Test Item Value Reference Range Interpretation Comments IM GRANULOCYTES % (test code = IM GRANULOCYTES %) 0.5 0.0- 1.0 [facility] HospitalNeutrophils # (Auto)2019-05-04 05:32:00* Test Item Value Reference Range Interpretation Comments Neutrophils # (Auto) (test code = 751-8) 7.7 2.1-6.9 H [facility] HospitalLymphocytes # (Auto)2019-05-04 05:32:00* Test Item Value Reference Range Interpretation Comments Lymphocytes # (Auto) (test code = 11625-5) 1.4 1.0-3.2 [facility] HospitalMonocytes # (Auto)2019-05-04 05:32:00* Test Item Value Reference Range Interpretation Comments Monocytes # (Auto) (test code = 742-7) 0.8 0.2-0.8 [facility] HospitalEosinophils # (Auto)2019-05-04 05:32:00* Test Item Value Reference Range Interpretation Comments Eosinophils # (Auto) (test code = 711-2) 0.0 0.0-0.4 [facility] HospitalBasophils # (Auto)2019-05-04 05:32:00* Test Item Value Reference Range Interpretation Comments Basophils # (Auto) (test code = 704-7) 0.0 0.0-0.1 [facility] HospitalAbsolute Immature Granulocyte (auto 2019-05-04 05:32:00* Test Item Value Reference Range Interpretation Comments Absolute Immature Granulocyte (auto (bharat t code = Absolute Immature Granulocyte (auto) 0.05 0-0.1 [facility] HospitalBlood Jthcbxp6022-27-23 17:48:00* Test Item Value Reference Range Interpretation Comments Blood Culture (test code = 10860341) NO GROWTH AFTER 72 HOURS [facility] HospitalUric Ybio1722-86-90 18:10:00* Test Item Value Reference Range Interpretation Comments Uric Acid (test code = 3084-1) 8.3 4.8-8.0 H [facility] HospitalUric Ighh8213-79-45 18:10:00* Test Item Value Reference Range Interpretation Comments Uric Acid (test code = 3084-1) 8.3 4.8-8.0 H [facility] HospitalUric Qqfw8901-02-57 18:10:00* Test Item Value Reference Range Interpretation Comments Uric Acid (test code = 3084-1) 8.3 4.8-8.0 H [facility] HospitalUric Tfds0063-47-73 18:10:00* Test Item Value Reference Range Interpretation Comments Uric Acid (test code = 3084-1) 8.3 4.8-8.0 H [facility] HospitalUric Zjbh9886-71-76 18:10:00* Test Item Value Reference Range Interpretation Comments Uric Acid (test code = 3084-1) 8.3 4.8-8.0 H [facility] HospitalUric Zutu9094-73-37 18:10:00* Test Item Value Reference Range Interpretation Comments Uric Acid (test code = 3084-1) 8.3 4.8-8.0 H [facility] CenterMRI HAND RIGHT IX7631-38-09 08:40:00 [facility] [address] [address] Patient Name: STEVE BENEDICT MR #: [id number] : 1945 Age/Sex: 73/M Req #: [id number] Adm Physician: ROSALIE SHORT MD Ordered by: Samara Das GROUP ACTIVITIES AIDE Report #: [id number] Location: MED/SURG2 Room/Bed: 213 Procedure: 9111-1745 M RI/MRI HAND RIGHT WO Exam Date: [...] By: ERAN on 04/30/19846 COPY TO: SAMARA ADS NP Hemoglobin A1c Vxwjncr9223-75-36 15:13:00* Test Item Value Reference Range Interpretation Comments Hemoglobin A1c Percent (test code = Hemoglobin A1c Percent) 5.6 4.0-7.0 [facility] HospitalH[facility] A1c Sqcmxmu7562-43-41 15:13:00 * Test Item Value Reference Range Interpretation Comments Hemoglobin A1c Percent (test code = Hemoglobin A1c Percent) 5.6 4.0-7.0 [facility] HospitalCreatine Exjfez0245-89-03 14:30:00* Test Item Value Reference Range Interpretation Comments Creatine Kinase (test code = 2157-6) 73 30-200 [facility] HospitalCreatine Kinase TB0437-57-79 13:53:00* Test Item Value Reference Range Interpretation Comments Creatine Kinase MB (test code = 70206-7) 2.50 0-5.0 [facility] HospitalTroponin K6773-38-76 13:53:00* Test Item Value Reference Range Interpretation Comments Troponin I (test code = LJF6919) < 0.001 0-0.300 [facility] HospitalTotal Hhexmqrpm1057-99-69 06:34:00* Test Item Value Reference Range Interpretation Comments Total Bilirubin (test code = 1975-2) 0.5 0.2-1.2 [facility] HospitalAspartate Amino Transf (AST/SGOT) 2019-04-24 06:34:00* Test Item Value Reference Range Interpretation Comments Aspartate Amino Transf (AST/SGOT) (test code = Aspartate Amino Transf (AST/SGOT)) 16 5-34 [facility] HospitalAlanine Aminotransferase (ALT/SGPT) 2019-04-24 06:34:00* Test Item Value Reference Range Interpretation Comments Alanine Aminotransferase (ALT/SGPT) (test code = 1742-6) 13 0-55 [facility] HospitalTotal Aihenux7148-56-07 06:34:00* Test Item Value Reference Range Interpretation Comments Total Protein (test code = 2885-2) 6.3 6.5-8.1 L [facility] HospitalAlbumin2019-06-29 06:34:00* Test Item Value Reference Range Interpretation Comments Albumin (test code = 1751-7) 3.4 3.5-5.0 L [facility] HospitalGlobulin2019-06-29 06:34:00* Test Item Value Reference Range Interpretation Comments Globulin (test code = 67778-7) 2.9 2.3-3.5 [facility] HospitalAlbumin/Globulin Krnph2563-79-68 06:34:00 * Test Item Value Reference Range Interpretation Comments Albumin/Globulin Ratio (test code = 1759-0) 1.2 0.8-2.0 [facility] HospitalAlkaline Bljgtjniael6095-33-76 06:34:00* Test Item Value Reference Range Interpretation Comments Alkaline Phosphatase (test code = 6768-6) 87 40-150 [facility] HospitalCHEST 2 [id number] 18:58:00 [facility] [address] [place] [address] Patient Name: STEVE BENEDICT MR #: [id number] : 1945 Age/Sex: 73/M Req #: [id number] Adm Physician: Ordered by: IBAN RAMOS MD Report #: [id number] Location: ER Room/Bed: Procedure: [id number] DX/ CHEST 2 VIEWS Exam Date: 04/23/19 [...] central pulmonary vascular congesti on. Signed by: Bhavna SellersODalton, M.M.M. on 04/23/2019 7:02 PM Dictated By: JOHN GIRARD DO 01 COPY TO: IBAN RAMOS MD Prothrombin Whqr6887-33-36 18:33:00* Test Item Value Reference Range Interpretation Comments Prothrombin Time (test code = 5902-2) 13.7 11.9-14.5 [facility] HospitalProthromb Time International Ratio 2019-04-23 18:33:00* Test Item Value Reference Range Interpretation Comments Prothromb Time International Ratio (test code = 6301-6) 1.00 Oral Anticoagulant Therapy INR Values:1. Low Intensity Therapy 1.5 - 2.02 . Moderate Intensity Therapy 2.0 - 3.03. High Intensity Therapy(1) 2.5 - 3. 54. High Intensity Therapy(2) 3.0 - 4.05. Panic Value INR > 5.0 [facility] HospitalActivated Partial Thromboplast Time 2019-04-23 18:33:00* Test Item Value Reference Range Interpretation Comments Activated Partial Thromboplast Time (test code = 34954-7) 35.8 23.8-35.5 H [facility] HospitalUrine TLV5699-80-20 18:19:00* Test Item Value Reference Range Interpretation Comments Urine WBC (test code = 5821-4) 6-10 0-5 H [facility] HospitalUrine [id number] 18:19:00* Test Item Value Reference Range Interpretation Comments Urine RBC (test code = 78470-5) NONE 0-5 [facility] HospitalUrine Yvlopola4373-63-77 18:19:00* Test Item Value Reference Range Interpretation Comments Urine Bacteria (test code = 51526-5) MODERATE NONE H [facility] Epithelial Uiskt3519-95-37 18:19:00 * Test Item Value Reference Range Interpretation Comments Urine Epithelial Cells (test code = 81327-5) FEW NONE [facility] Hyaline Cfaus4647-79-26 18:19:00* Test Item Value Reference Range Interpretation Comments Urine Hyaline Casts (test code = 14316-2) 0-1 0-1 [facility] Hyaline Wlnlc1008-60-44 18:19:00* Test Item Value Reference Range Interpretation Comments Urine Hyaline Casts (test code = 71109-4) 0-1 0-1 [facility] Hyaline Sdbvn8157-07-44 18:19:00* Test Item Value Reference Range Interpretation Comments Urine Hyaline Casts (test code = 65324-5) 0-1 0-1 [facility] Hyaline Krmgu0167-25-43 18:19:00* Test Item Value Reference Range Interpretation Comments Urine Hyaline Casts (test code = 97216-2) 0-1 0-1 [facility] Hyaline Csqmk6997-72-50 18:19:00* Test Item Value Reference Range Interpretation Comments Urine Hyaline Casts (test code = 95965-5) 0-1 0-1 [facility] Hyaline Ieyam8154-84-36 18:19:00* Test Item Value Reference Range Interpretation Comments Urine Hyaline Casts (test code = 34821-7) 0-1 0-1 [facility] HospitalUrine Rvxas4316-00-64 18:03:00* Test Item Value Reference Range Interpretation Comments Urine Color (test code = 5778-6) YELLOW YELLOW [facility] HospitalUrine Zeejlfh3777-01-00 18:03:00* Test Item Value Reference Range Interpretation Comments Urine Clarity (test code = 75727-6) CLEAR CLEAR [facility] HospitalUrine Specific Kkusafx4255-77-96 18:03:00 * Test Item Value Reference Range Interpretation Comments Urine Specific [place] (test code = 5811-5) 1.010 1.010-1.02 5 [facility] HospitalUrine eW0407-90-80 18:03:00* Test Item Value Reference Range Interpretation Comments Urine pH (test code = 12907-3) 6 5-7 [facility] HospitalU[facility] Leukocyte Zqdwedke7850-83-58 18:03:00* Test Item Value Reference Range Interpretation Comments Urine Leukocyte Esterase (test code = 65815-3) NEGATIVE NEGATIV E [facility] HospitalUrine Zttarlw8144-47-49 18:03:00* Test Item Value Reference Range Interpretation Comments Urine Nitrite (test code = 41823-7) NEGATIVE NEGATIVE [facility] Ogjpzga3866-23-33 18:03:00* Test Item Value Reference Range Interpretation Comments Urine Protein (test code = 00995-8) NEGATIVE NEGATIVE [facility] Glucose (UA)2019-04-23 18:03:00* Test Item Value Reference Range Interpretation Comments Urine Glucose (UA) (test code = 40866-5) NEGATIVE NEGATIVE [facility] HospitalUrine Fgwbprp4557-77-16 18:03:00* Test Item Value Reference Range Interpretation Comments Urine Ketones (test code = 55430-0) NEGATIVE NEGATIVE [facility] HospitalUrine Xrxucmlfixxa9733-50-30 18:03:00* Test Item Value Reference Range Interpretation Comments Urine Urobilinogen (test code = 12236-7) 0.2 0.2-1 [facility] HospitalUrine Xotsncchz2302-35-42 18:03:00* Test Item Value Reference Range Interpretation Comments Urine Bilirubin (test code = 1977-8) NEGATIVE NEGATIVE [facility] HospitalUrine Fzzrv8597-34-28 18:03:00* Test Item Value Reference Range Interpretation Comments Urine Blood (test code = 75310-0) NEGATIVE NEGATIVE [facility] CT T-SPINE W/O PGXYATNP0819-44-88 16:27:00 Name: STEVE BENEDICT [facility] : 1945 Age/S: 73 / M [address] [facility] Unit #: [id number] Loc: [place] [address] Phys: Adam Hawkins MD Acct: [id number] Dis Date: Status: REG ER PHONE #: [phone] Exam Date: 04/03/2019 1530 FAX #: [phone] Reason: pain, fall EXAMS: CPT CODE: [id number] CT T-SPINE W/O CONTRAST 34325 HISTORY: pain, fall TECHNIQUE: CT of the [...] Mejia CTDI: DLP: Trnscb Date/Time: 04/03/2019 (1627) TyronePB10 Orig Print D/T: S: 04/03/2019 (3904) PAGE 1 Signed Report - XR HIP W/PEL UNI 2+V RT 2019-04-03 15:52:00 Name: STEVE BENEDICT [facility] : 1945 Age/S:73 /M [address] [facility] Unit#:[id number] Loc: [place] [address] Phys: Adam Hawkins MD Dis Date: PHONE #: [phone] Status: REG ER FAX #: [phone] Exam Date: 04/03/2019 Reason: pain, fall EXAMS: CPT CODE: [id number] XR HIP W/PEL UNI 2+[place] [address] HISTORY: pain, fall TECHNIQUE: Single frontal view [...] Technologist: Maria Elena Mejia Trnscrpt Data: 04/03/2019 (9289) t.SDR.PB10 Orig Print D/T: S: 04/03/2019 (5599) PAGE 1 Signed Report - XR ANKLE 3 + V RD9287-46-65 15:39:00 Name: STEVE BEENDICT [facility] : 1945 Age/S:73 /M [address] [facility] Unit#:[id number] Loc: [place] [address] Phys: Adam Hawkins MD Dis Date: PHONE #: [phone] Status: REG ER FAX #: [phone] Exam Date: 04/03/2019 Re ason: pain, fall EXAMS: CPT CODE: [id number] XR ANKLE 3 + V RT 97576 HISTORY: pain, fall TE CHNIQUE: Frontal, oblique, [...] MD Technologist: Anastasia Mejia Trnscrpt Data: 04/03/2019 (1539) t.DENZEL R.PB10 Orig Print D/T: S: 04/03/2019 (2304) PAGE 1 Signed Report REMOVAL TUNNEDLED CV [id number] 14:30:00 [place] [address] Patient Name: STEVE BENEDICT MR #: [id number] : 1945 Age/Sex: 73/M Req #: [id number] Adm Physician: ROSALIE SHORT MD Ordered by: Samara Das GROUP ACTIVITIES AIDE Report #: [id number] Location: MED/[facility] Room/Bed: [facility] Procedure: [id number] I R/REMOVAL TUNNEDLED CV CATH Exam Date: Exam Time: REPORT STATUS: Signed Date and T cheri: 02/15/2019 Procedure: Removal of tunneled central venous catheter adjusto writer operator: Dr. Lopez Pre-operative diagnosis: Tunneled central [...] po sition on the fluoroscopic table. A news wire photo operator image was obtained, showing stable p osition [...] 1433 COPY TO: SAMARA RUBIO NP IR QQRTIJI3070-63-67 14:30:00 [place] [address] Patient Name: STEVE BENEDICT MR #: [id number] : 1945 Age/Sex: 73/M Req #: [id number] Adm Physician: ROSALIE SHORT MD Ordered by: Samara Das NP Report #: [id number] Location: MED/SURG3 Room/Bed: [facility] Procedure: [id number] D X/IR CONSULT Exam Date: Exam Time: REPORT STATUS: Signed Date and Time: 02/15/2019 Procedure: Removal of tunneled central venous catheter adjusto writer operator: Dr. Lopez Pre-operative diagnosis: Tunneled central [...] position on the f luoroscopic table. A news wire photo operator image was obtained, showing stable position of the right internal jugular tunneled low flow central venous catheter with the tip projecting over the superior cavoatrial junction. The right upper chest a nd existing catheter were then prepped and draped in the standard [facility]. 1% lidocaine was infiltrated into the [...] 14 33 Transcribed By: ERAN on 02/15/19 1293 COPY TO: SAMARA DAS NP Bedside Evmgpyx3912-31-67 11:43:00* Test Item Value Reference Range Interpretation Comments Bedside Glucose (test code = 37349-6) 126 70-120 H Meter ID: [id number] Orthopedic HospitalB-Type Natriuretic Ivvudfb3219-93-62 07:04:00* Test Item Value Reference Range Interpretation Comments B-Type Natriuretic Peptide (test code = 12948-8) 91.6 0-100 [facility] HospitalActivated Partial Thromboplast Time 2019-02-15 07:01:00* Test Item Value Reference Range Interpretation Comments Activated Partial Thromboplast Time (test code = 88841-6) 38.9 23.8-35.5 H [facility] HospitalProthrombin Ezvm4744-32-09 07:00:00* Test Item Value Reference Range Interpretation Comments Prothrombin Time (test code = 5902-2) 13.4 11.9-14.5 [facility] HospitalProthromb Time International Ratio 2019-02-15 07:00:00* Test Item Value Reference Range Interpretation Comments Prothromb Time International Ratio (test code = 6301-6) 0.97 Oral Anticoagulant Therapy INR Values:1. Low Intensity Therapy 1.5 - 2.02 . Moderate Intensity Therapy 2.0 - 3.03. High Intensity Therapy(1) 2.5 - 3. 54. High Intensity Therapy(2) 3.0 - 4.05. Panic Value INR > 5.0 [facility] Hospitalodium Twowe2631-55-82 06:47:00* Test Item Value Reference Range Interpretation Comments Sodium Level (test code = 2951-2) 139 136-145 [facility] HospitalPotassium Zmzxh7475-76-16 06:47:00* Test Item Value Reference Range Interpretation Comments Potassium Level (test code = 2823-3) 4.7 3.5-5.1 [facility] HospitalChloride Ggivs3704-61-84 06:47:00* Test Item Value Reference Range Interpretation Comments Chloride Level (test code = 2075-0) 84 98-107 L [facility] HospitalCarbon Dioxide Bfymy0443-68-93 06:47:00* Test Item Value Reference Range Interpretation Comments Carbon Dioxide Level (test code = 8-9) 42 22-29 HH Results repeated and called to KURT CARPENTER,RN at 0647 on 02/15/19 by Roula Rivera. Read back and verified.[facility] HospitalAnion Gap 2019-02-15 06:47:00* Test Item Value Reference Range Interpretation Comments Anion Gap (test code = 44417-1) 17.7 8-16 H [facility] HospitalBlood Urea Yxpuzkgu9672-50-60 06:47:00* Test Item Value Reference Range Interpretation Comments Blood Urea Nitrogen (test code = 3094-0) 68 7-26 H [facility] HospitalCreatinine2019-04-22 06:47:00* Test Item Value Reference Range Interpretation Comments Creatinine (test code = 2160-0) 2.16 0.72-1.25 H [facility] HospitalBUN/Creatinine Vdoox4997-15-67 06:47:00* Test Item Value Reference Range Interpretation Comments BUN/Creatinine Ratio (test code = 3097-3) 31 6-25 H [facility] HospitalEstimat Glomerular Filtration Rate 2019-02-15 06:47:00* Test Item Value Reference Range Interpretation Comments Estimat Glomerular Filtration Rate (test code = 948147256) 30 >60 L Ranges were taken from the National Kidney Disease Education Program and the [facility] [employer] literature.Reference ranges:60 or greater: Kstvgf23-55 ( for 3 consecutive months): Chronic kidney disease 15 or less: Kidney failureLegent Orthopedic HospitalGlucose Orjnu7221-47-73 06:47:00* Test Item Value Reference Range Interpretation Comments Glucose Level (test code = RSA7299) 140 74-118 H [facility] HospitalCalcium Xehne9674-53-10 06:47:00* Test Item Value Reference Range Interpretation Comments Calcium Level (test code = 03659-6) 10.4 8.4-10.2 H [facility] HospitalMagnesium Khuxz0767-03-09 06:47:00* Test Item Value Reference Range Interpretation Comments Magnesium Level (test code = 57090-0) 3.3 1.3-2.1 H [facility] HospitalWhite Blood Vwjhz7379-22-52 06:30:00* Test Item Value Reference Range Interpretation Comments White Blood Count (test code = 6690-2) 8.88 4.8-10.8 [facility] HospitalRed Blood Dppxr7327-93-31 06:30:00* Test Item Value Reference Range Interpretation Comments Red Blood Count (test code = 789-8) 6.03 4.3-5.7 H [facility] HospitalHemoglobin2019-04-22 06:30:00* Test Item Value Reference Range Interpretation Comments Hemoglobin (test code = 40641-4) 16.4 14.0-18.0 [facility] HospitalHematocrit2019-04-22 06:30:00* Test Item Value Reference Range Interpretation Comments Hematocrit (test code = 4544-3) 54.5 38.2-49.6 H [facility] HospitalMean Corpuscular Tqzhwk8057-98-60 06:30:00* Test Item Value Reference Range Interpretation Comments Mean Corpuscular Volume (test code = 787-2) 90.4 81-99 [facility] HospitalMean Corpuscular Conxxiowwf2573-17-63 06:30:00* Test Item Value Reference Range Interpretation Comments Mean Corpuscular Hemoglobin (test code = 785-6) 27.2 28-32 L [facility] HospitalMean Corpuscular Hemoglobin Concent 2019-02-15 06:30:00* Test Item Value Reference Range Interpretation Comments Mean Corpuscular Hemoglobin Concent (test code = 786-4) 30.1 31-35 L [facility] HospitalRed Cell Distribution Krdyp9717-25-38 06:30:00* Test Item Value Reference Range Interpretation Comments Red Cell Distribution Width (test code = 00187-2) 16.2 11.7 -14.4 H [facility] HospitalPlatelet Aaeqj7104-42-41 06:30:00* Test Item Value Reference Range Interpretation Comments Platelet Count (test code = 777-3) 293 140-360 [facility] HospitalNeutrophils (%) (Auto)2019-02-15 06:30:00 * Test Item Value Reference Range Interpretation Comments Neutrophils (%) (Auto) (test code = 04809-7) 65.2 38.7-80.0 [facility] HospitalLymphocytes (%) (Auto)2019-02-15 06:30:00 * Test Item Value Reference Range Interpretation Comments Lymphocytes (%) (Auto) (test code = 736-9) 19.8 18.0-39.1 [facility] HospitalMonocytes (%) (Auto)2019-02-15 06:30:00* Test Item Value Reference Range Interpretation Comments Monocytes (%) (Auto) (test code = 5905-5) 11.4 4.4-11.3 H [facility] HospitalEosinophils (%) (Auto)2019-02-15 06:30:00 * Test Item Value Reference Range Interpretation Comments Eosinophils (%) (Auto) (test code = 713-8) 2.1 0.0-6.0 [facility] HospitalBasophils (%) (Auto)2019-02-15 06:30:00* Test Item Value Reference Range Interpretation Comments Basophils (%) (Auto) (test code = 706-2) 1.0 0.0-1.0 [facility] HospitalIM GRANULOCYTES %2019-02-15 06:30:00* Test Item Value Reference Range Interpretation Comments IM GRANULOCYTES % (test code = IM GRANULOCYTES %) 0.5 0.0- 1.0 [facility] HospitalNeutrophils # (Auto)2019-02-15 06:30:00* Test Item Value Reference Range Interpretation Comments Neutrophils # (Auto) (test code = 751-8) 5.8 2.1-6.9 [facility] HospitalLymphocytes # (Auto)2019-02-15 06:30:00* Test Item Value Reference Range Interpretation Comments Lymphocytes # (Auto) (test code = 88445-1) 1.8 1.0-3.2 [facility] HospitalMonocytes # (Auto)2019-02-15 06:30:00* Test Item Value Reference Range Interpretation Comments Monocytes # (Auto) (test code = 742-7) 1.0 0.2-0.8 H [facility] HospitalEosinophils # (Auto)2019-02-15 06:30:00* Test Item Value Reference Range Interpretation Comments Eosinophils # (Auto) (test code = 711-2) 0.2 0.0-0.4 [facility] HospitalBasophils # (Auto)2019-02-15 06:30:00* Test Item Value Reference Range Interpretation Comments Basophils # (Auto) (test code = 704-7) 0.1 0.0-0.1 [facility] HospitalAbsolute Immature Granulocyte (auto 2019-02-15 06:30:00* Test Item Value Reference Range Interpretation Comments Absolute Immature Granulocyte (auto (bharat t code = Absolute Immature Granulocyte (auto) 0.04 0-0.1 [facility] HospitalMODIFIED BA. YNQIZNT5924-23-65 08:43:00 [place] [address] Patient Name: STEVE BENEDICT MR #: [id number] : 1945 Age/Sex: 73/M Req #: [id number] Adm Physician: ROSALIE SHORT MD Ordered by: ROSALIE SHORT MD Report #: [id number] Location: MED/SURG3 Room/Bed: [facility] Procedure: [id number] DX /MODIFIED BA. SWALLOW Exam Date: 02/12/19 Exam Time: 0653 REPORT STATUS: Signed EXAM: Modified barium swallow with Speech Pathologist INDICATION: freq PNA [id number] Y COMPARISON: None available. RADIATION DOSE: [...] COPY TO: VON SHORT MD Hemoglobin A1c Wyktwxn1786-06-04 07:54:00* Test Item Value Reference Range Interpretation Comments Hemoglobin A1c Percent (test code = Hemoglobin A1c Percent) 6.2 4.0-7.0 [facility] Pzgknqiku8188-58-17 07:03:00* Test Item Value Reference Range Interpretation Comments Free Thyroxine (test code = 3024-7) 0.92 0.9-1.8 [facility] HospitalThyroid Stimulating Hormone (TSH) 2019-02-12 07:03:00* Test Item Value Reference Range Interpretation Comments Thyroid Stimulating Hormone (TSH) (test code = 82790-8) 1.875 0.350-4.940 [facility] Uutftopwt7134-45-28 07:03:00* Test Item Value Reference Range Interpretation Comments Free Thyroxine (test code = 3024-7) 0.92 0.9-1.8 [facility] HospitalThyroid Stimulating Hormone (TSH) 2019-02-12 07:03:00* Test Item Value Reference Range Interpretation Comments Thyroid Stimulating Hormone (TSH) (test code = 18065-6) 1.875 0.350-4.940 [facility] Cfpjwfpvz8237-04-94 07:03:00* Test Item Value Reference Range Interpretation Comments Free Thyroxine (test code = 3024-7) 0.92 0.9-1.8 [facility] HospitalThyroid Stimulating Hormone (TSH) 2019-02-12 07:03:00* Test Item Value Reference Range Interpretation Comments Thyroid Stimulating Hormone (TSH) (test code = 77123-4) 1.875 0.350-4.940 [facility] HospitalPhosphorus Wthvj5215-35-47 06:43:00* Test Item Value Reference Range Interpretation Comments Phosphorus Level (test code = SSD0581) 3.5 2.3-4.7 [facility] HospitalPhosphorus Xegvr7728-89-94 06:43:00* Test Item Value Reference Range Interpretation Comments Phosphorus Level (test code = NUF3118) 3.5 2.3-4.7 [facility] HospitalPhosphorus Scdpx9432-59-42 06:43:00* Test Item Value Reference Range Interpretation Comments Phosphorus Level (test code = FLB6766) 3.5 2.3-4.7 [facility] HospitalCreatine Hgjjdm7826-37-34 13:44:00* Test Item Value Reference Range Interpretation Comments Creatine Kinase (test code = 2157-6) 127 30-200 [facility] HospitalCreatine Kinase CB4767-42-24 13:44:00* Test Item Value Reference Range Interpretation Comments Creatine Kinase MB (test code = 43073-1) 2.50 0-5.0 [facility] HospitalTroponin D2310-82-53 13:44:00* Test Item Value Reference Range Interpretation Comments Troponin I (test code = TQH2661) 0.017 0-0.300 [facility] HospitalTotal Ohlanpogr9778-57-39 05:09:00* Test Item Value Reference Range Interpretation Comments Total Bilirubin (test code = 1975-2) 0.6 0.2-1.2 [facility] HospitalAspartate Amino Transf (AST/SGOT) 2019-02-09 05:09:00* Test Item Value Reference Range Interpretation Comments Aspartate Amino Transf (AST/SGOT) (test code = Aspartate Amino Transf (AST/SGOT)) 15 5-34 [facility] HospitalAlanine Aminotransferase (ALT/SGPT) 2019-02-09 05:09:00* Test Item Value Reference Range Interpretation Comments Alanine Aminotransferase (ALT/SGPT) (test code = 1742-6) 10 0-55 [facility] HospitalTotal Zumfchq6898-25-51 05:09:00* Test Item Value Reference Range Interpretation Comments Total Protein (test code = 2885-2) 6.7 6.5-8.1 [facility] HospitalAlbumin2019-04-16 05:09:00* Test Item Value Reference Range Interpretation Comments Albumin (test code = 1751-7) 3.4 3.5-5.0 L [facility] HospitalGlobulin2019-04-16 05:09:00* Test Item Value Reference Range Interpretation Comments Globulin (test code = 34351-7) 3.3 2.3-3.5 [facility] HospitalAlbumin/Globulin Ktuco5633-22-80 05:09:00 * Test Item Value Reference Range Interpretation Comments Albumin/Globulin Ratio (test code = 1759-0) 1.0 0.8-2.0 [facility] HospitalAlkaline Jwuykxndvso0244-18-49 05:09:00* Test Item Value Reference Range Interpretation Comments Alkaline Phosphatase (test code = 6768-6) 78 40-150 [facility] HospitalCHEST SINGLE (NOT PORTABLE)2019-02-08 15:46:00 [facility] [address] [place] [address] Patient Name: STEVE BENEDICT MR #: [id number] : 1945 Age/Sex: 73/M Req #: [id number] Adm Physician: Ordered by: VENITA PRADO MD Report #: [id number] Location: ER Room/Bed: Procedure: [id number] D X/CHEST SINGLE (NOT PORTABLE) Exam Date: [...] atelectasis or early pneumonia in the [facility] clinical setting. Signed by: Dr. Jose Manuel Person MD on 02/08/2019 3:51 PM Dictated By: JOSE MANUEL PERSON MD 1551 COPY TO: ZELALEM PRADO MD Urine NHO6916-45-94 14:47:00* Test Item Value Reference Range Interpretation Comments Urine WBC (test code = 5821-4) NONE 0-5 [facility] HospitalUrine WUQ6240-11-67 14:47:00* Test Item Value Reference Range Interpretation Comments Urine RBC (test code = 89479-0) NONE 0-5 [facility] HospitalUrine Tvnhazuk9105-79-23 14:47:00* Test Item Value Reference Range Interpretation Comments Urine Bacteria (test code = 17295-8) NONE NONE [facility] HospitalUrine Epithelial Eptdr0778-84-42 14:47:00 * Test Item Value Reference Range Interpretation Comments Urine Epithelial Cells (test code = 83196-4) RARE NONE [facility] HospitalUrine Anddo7639-53-07 14:38:00* Test Item Value Reference Range Interpretation Comments Urine Color (test code = 5778-6) YELLOW YELLOW [facility] Labaktj8542-95-15 14:38:00* Test Item Value Reference Range Interpretation Comments Urine Clarity (test code = 13477-8) CLEAR CLEAR [facility] Specific Skgbgvt9586-27-07 14:38:00 * Test Item Value Reference Range Interpretation Comments Urine Specific [place] (test code = 5811-5) 1.010 1.010-1.02 5 [facility] zQ6613-53-04 14:38:00* Test Item Value Reference Range Interpretation Comments Urine pH (test code = 67987-2) 7 5-7 [facility] Leukocyte Nviqkeyw3680-54-43 14:38:00* Test Item Value Reference Range Interpretation Comments Urine Leukocyte Esterase (test code = 5799-2) NEGATIVE NEGATIVE [facility] Dwbsbbx1971-23-16 14:38:00* Test Item Value Reference Range Interpretation Comments Urine Nitrite (test code = 19640-4) NEGATIVE NEGATIVE [facility] Jdhxxaz8350-87-53 14:38:00* Test Item Value Reference Range Interpretation Comments Urine Protein (test code = 5804-0) NEGATIVE NEGATIVE [facility] Glucose (UA)2019-02-08 14:38:00* Test Item Value Reference Range Interpretation Comments Urine Glucose (UA) (test code = 2349-9) NEGATIVE NEGATIVE [facility] Gckdwek0307-55-28 14:38:00* Test Item Value Reference Range Interpretation Comments Urine Ketones (test code = 09973-8) NEGATIVE NEGATIVE [facility] Gsbgluovompq6317-67-17 14:38:00* Test Item Value Reference Range Interpretation Comments Urine Urobilinogen (test code = 54005-1) 0.2 0.2-1 [facility] Rrgsyclps5066-08-79 14:38:00* Test Item Value Reference Range Interpretation Comments Urine Bilirubin (test code = 1978-6) NEGATIVE NEGATIVE [facility] Lhfck8481-00-85 14:38:00* Test Item Value Reference Range Interpretation Comments Urine Blood (test code = 66365-3) NEGATIVE NEGATIVE [facility] Pzjbjxs2875-95-50 05:29:00* Test Item Value Reference Range Interpretation Comments Urine Culture (test code = 630-4) Organism: GIOVANNI ALBICANS [facility] Komyswc5747-82-31 05:29:00* Test Item Value Reference Range Interpretation Comments Urine Culture (test code = 630-4) Organism: GIOVANNI ALBICANS [facility] Kolcngm9629-66-49 05:29:00* Test Item Value Reference Range Interpretation Comments Urine Culture (test code = 630-4) Organism: GIOVANNI ALBICANS [facility] Zzkhsbi6873-38-83 05:29:00* Test Item Value Reference Range Interpretation Comments Urine Culture (test code = 630-4) Organism: GIOVANNI ALBICANS [facility] Qwgsxfa9876-93-94 05:29:00* Test Item Value Reference Range Interpretation Comments Urine Culture (test code = 630-4) No Result Data Provided [facility] Akckgxg6240-26-92 05:29:00* Test Item Value Reference Range Interpretation Comments Urine Culture (test code = 630-4) No Result Data Provided [facility] Ptuwhib3536-20-37 14:41:00* Test Item Value Reference Range Interpretation Comments Blood Culture (test code = 13038557) NO GROWTH AFTER 5 DAYS, FINAL REPORT [facility] Khfakwb6395-80-70 12:09:00* Test Item Value Reference Range Interpretation Comments Bedside Glucose (test code = 25835-0) 151 70-120 H Meter ID: [id number] [facility] Culture 2019-01-09 10:40:00* Test Item Value Reference Range Interpretation Comments Urine Culture (test code = 630-4) Organism: YEAST SPECIES [facility] HospitalProcalcitonin2019-03-16 06:48:00* Test Item Value Reference Range Interpretation Comments Procalcitonin (test code = 081495631) 0.07 0.00-0.08 A procalcitonin (PCT) level above [...] any concentrations <2 ng/mL are obtained.Performed at: [facility] [id number] Director: Tito Rodriguez MD, Phone: [phone] Orthopedic HospitalProcalcitonin2019-03-16 06:48:00* Test Item Value Reference Range Interpretation Comments Procalcitonin (test code = 346927237) 0.07 0.00-0.08 A procalcitonin (PCT) level above [...] any concentrations <2 ng/mL are obtained.Performed at: [address] [id number] Director: Tito Rodriguez MD, Phone: [phone] Orthopedic HospitalProcalcitonin2019-03-16 06:48:00* Test Item Value Reference Range Interpretation Comments Procalcitonin (test code = 756896201) 0.07 0.00-0.08 A procalcitonin (PCT) level above [...] any concentrations <2 ng/mL are obtained.Performed at: [address] [id number] Director: Tito Rodriguez MD, Phone: [phone] Orthopedic HospitalProcalcitonin2019-03-16 06:48:00* Test Item Value Reference Range Interpretation Comments Procalcitonin (test code = 020932828) 0.07 0.00-0.08 A procalcitonin (PCT) level above [...] any concentrations <2 ng/mL are obtained.Performed at: [address] [id number] Director: Tito Rodriguez MD, Phone: [phone] Orthopedic HospitalProcalcitonin2019-03-16 06:48:00* Test Item Value Reference Range Interpretation Comments Procalcitonin (test code = 599532681) 0.07 0.00-0.08 A procalcitonin (PCT) level above [...] any concentrations <2 ng/mL are obtained.Performed at: [address] [id number] Director: Tito Rodriguez MD, Phone: [phone] Orthopedic HospitalProcalcitonin2019-03-16 06:48:00* Test Item Value Reference Range Interpretation Comments Procalcitonin (test code = 788105697) 0.07 0.00-0.08 A procalcitonin (PCT) level above [...] any concentrations <2 ng/mL are obtained.Performed at: [facility] [id number] Director: Tito Rodriguez MD, Phone: [phone] Orthopedic HospitalProcalcitonin2019-03-16 06:48:00* Test Item Value Reference Range Interpretation Comments Procalcitonin (test code = 419285074) 0.07 0.00-0.08 A procalcitonin (PCT) level above [...] any concentrations <2 ng/mL are obtained.Performed at: [facility] [id number] Director: Tito Rodriguez MD, Phone: [phone] Orthopedic HospitalB-Type Natriuretic Ypouwuw2056-04-32 05:08:00* Test Item Value Reference Range Interpretation Comments B-Type Natriuretic Peptide (test code = 30801-1) 381.1 0-100 [facility] Lxpuy9287-43-03 04:31:00* Test Item Value Reference Range Interpretation Comments Sodium Level (test code = 2951-2) 140 136-145 [facility] HospitalPotassium Cxnks3143-79-52 04:31:00* Test Item Value Reference Range Interpretation Comments Potassium Level (test code = 2823-3) 4.4 3.5-5.1 [facility] HospitalChloride Iazcw1333-65-48 04:31:00* Test Item Value Reference Range Interpretation Comments Chloride Level (test code = 2075-0) 91 98-107 L [facility] HospitalCarbon Dioxide Fhzqj1836-17-07 04:31:00* Test Item Value Reference Range Interpretation Comments Carbon Dioxide Level (test code = 2028-9) 40 22-29 H [facility] HospitalAnion Ijp0705-70-11 04:31:00* Test Item Value Reference Range Interpretation Comments Anion Gap (test code = 97109-7) 13.4 8-16 [facility] HospitalBlood Urea Reyxnhbh6414-63-22 04:31:00* Test Item Value Reference Range Interpretation Comments Blood Urea Nitrogen (test code = 3094-0) 33 7-26 H [facility] HospitalCreatinine2019-03-16 04:31:00* Test Item Value Reference Range Interpretation Comments Creatinine (test code = 2160-0) 1.41 0.72-1.25 H [facility] HospitalBUN/Creatinine Edpql6621-31-14 04:31:00* Test Item Value Reference Range Interpretation Comments BUN/Creatinine Ratio (test code = 3097-3) 23 6-25 [facility] HospitalEstimat Glomerular Filtration Rate 2019-01-09 04:31:00* Test Item Value Reference Range Interpretation Comments Estimat Glomerular Filtration Rate (test code = 613940129) 49 >60 L Ranges were taken from the National Kidney Disease Education Program and the [facility] [employer] literature.Reference ranges:60 or greater: Zpsvyb55-24 ( for 3 consecutive months): Chronic kidney disease 15 or less: Kidney failureLegent Orthopedic HospitalGlucose Uqpes4365-32-82 04:31:00* Test Item Value Reference Range Interpretation Comments Glucose Level (test code = LLO7126) 154 74-118 H [facility] HospitalCalcium Jvxog3597-77-49 04:31:00* Test Item Value Reference Range Interpretation Comments Calcium Level (test code = 97495-1) 8.8 8.4-10.2 [facility] HospitalMagnesium Zfofy6331-96-47 04:31:00* Test Item Value Reference Range Interpretation Comments Magnesium Level (test code = 95549-6) 2.5 1.3-2.1 H [facility] HospitalWhite Blood Vorlr2564-47-61 04:08:00* Test Item Value Reference Range Interpretation Comments White Blood Count (test code = 6690-2) 8.53 4.8-10.8 [facility] HospitalRed Blood Jxrgx4459-98-44 04:08:00* Test Item Value Reference Range Interpretation Comments Red Blood Count (test code = 789-8) 6.08 4.3-5.7 H [facility] HospitalHemoglobin2019-03-16 04:08:00* Test Item Value Reference Range Interpretation Comments Hemoglobin (test code = 54406-5) 16.4 14.0-18.0 [facility] HospitalHematocrit2019-03-16 04:08:00* Test Item Value Reference Range Interpretation Comments Hematocrit (test code = 4544-3) 54.7 38.2-49.6 H [facility] HospitalMean Corpuscular Avnsxk9812-59-55 04:08:00* Test Item Value Reference Range Interpretation Comments Mean Corpuscular Volume (test code = 787-2) 90.0 81-99 [facility] HospitalMean Corpuscular Vdprmwxlzq4876-74-37 04:08:00* Test Item Value Reference Range Interpretation Comments Mean Corpuscular Hemoglobin (test code = 785-6) 27.0 28-32 L [facility] HospitalMean Corpuscular Hemoglobin Concent 2019-01-09 04:08:00* Test Item Value Reference Range Interpretation Comments Mean Corpuscular Hemoglobin Concent (test code = 786-4) 30.0 31-35 L [facility] HospitalRed Cell Distribution Psxxq6237-96-87 04:08:00* Test Item Value Reference Range Interpretation Comments Red Cell Distribution Width (test code = 85198-8) 17.9 11.7 -14.4 H [facility] HospitalPlatelet Qnona8912-13-87 04:08:00* Test Item Value Reference Range Interpretation Comments Platelet Count (test code = 777-3) 220 140-360 [facility] HospitalNeutrophils (%) (Auto)2019-01-09 04:08:00 * Test Item Value Reference Range Interpretation Comments Neutrophils (%) (Auto) (test code = 80749-3) 87.2 38.7-80.0 H [facility] HospitalLymphocytes (%) (Auto)2019-01-09 04:08:00 * Test Item Value Reference Range Interpretation Comments Lymphocytes (%) (Auto) (test code = 736-9) 7.0 18.0-39.1 L [facility] HospitalMonocytes (%) (Auto)2019-01-09 04:08:00* Test Item Value Reference Range Interpretation Comments Monocytes (%) (Auto) (test code = 5905-5) 4.6 4.4-11.3 [facility] HospitalEosinophils (%) (Auto)2019-01-09 04:08:00 * Test Item Value Reference Range Interpretation Comments Eosinophils (%) (Auto) (test code = 713-8) 0.0 0.0-6.0 [facility] HospitalBasophils (%) (Auto)2019-01-09 04:08:00* Test Item Value Reference Range Interpretation Comments Basophils (%) (Auto) (test code = 706-2) 0.1 0.0-1.0 [facility] HospitalIM GRANULOCYTES %2019-01-09 04:08:00* Test Item Value Reference Range Interpretation Comments IM GRANULOCYTES % (test code = IM GRANULOCYTES %) 1.1 0.0- 1.0 H [facility] HospitalNeutrophils # (Auto)2019-01-09 04:08:00* Test Item Value Reference Range Interpretation Comments Neutrophils # (Auto) (test code = 751-8) 7.4 2.1-6.9 H [facility] HospitalLymphocytes # (Auto)2019-01-09 04:08:00* Test Item Value Reference Range Interpretation Comments Lymphocytes # (Auto) (test code = 90409-5) 0.6 1.0-3.2 L [facility] HospitalMonocytes # (Auto)2019-01-09 04:08:00* Test Item Value Reference Range Interpretation Comments Monocytes # (Auto) (test code = 742-7) 0.4 0.2-0.8 [facility] HospitalEosinophils # (Auto)2019-01-09 04:08:00* Test Item Value Reference Range Interpretation Comments Eosinophils # (Auto) (test code = 711-2) 0.0 0.0-0.4 [facility] HospitalBasophils # (Auto)2019-01-09 04:08:00* Test Item Value Reference Range Interpretation Comments Basophils # (Auto) (test code = 704-7) 0.0 0.0-0.1 [facility] HospitalAbsolute Immature Granulocyte (auto 2019-01-09 04:08:00* Test Item Value Reference Range Interpretation Comments Absolute Immature Granulocyte (auto (bharat t code = Absolute Immature Granulocyte (auto) 0.09 0-0.1 [facility] HospitalBlood Eyvmjya4328-31-62 14:39:00* Test Item Value Reference Range Interpretation Comments Blood Culture (test code = 65098145) NO GROWTH AFTER 72 HOURS [facility] HospitalDifferential Total Cells Counted 2019-01-08 04:37:00* Test Item Value Reference Range Interpretation Comments Differential Total Cells Counted (test code = Differen tial Total Cells Counted) 100 [facility] HospitalNeutrophils % (Manual)2019-01-08 04:37:00 * Test Item Value Reference Range Interpretation Comments Neutrophils % (Manual) (test code = 45016-8) 91 40-74 H [facility] HospitalLymphocytes % (Manual)2019-01-08 04:37:00 * Test Item Value Reference Range Interpretation Comments Lymphocytes % (Manual) (test code = 737-7) 6 19-48 L [facility] HospitalMonocytes % (Manual)2019-01-08 04:37:00* Test Item Value Reference Range Interpretation Comments Monocytes % (Manual) (test code = 744-3) 3 3.4-9.0 L [facility] HospitalPlatelet Fxgmpmdj1030-19-72 04:37:00* Test Item Value Reference Range Interpretation Comments Platelet Estimate (test code = 75415-1) ADEQUATE [facility] HospitalPlatelet Morphology Miojxzx8871-90-86 04:37:00* Test Item Value Reference Range Interpretation Comments Platelet Morphology Comment (test code = 20725-5) NORMAL [facility] HospitalRed Cell Morphology Vbcarni3546-10-37 04:37:00* Test Item Value Reference Range Interpretation Comments Red Cell Morphology Comment (test code = 6742-1) NORMAL [facility] HospitalDifferential Total Cells Counted 2019-01-08 04:37:00* Test Item Value Reference Range Interpretation Comments Differential Total Cells Counted (test code = Eduardo tial Total Cells Counted) 100 [facility] HospitalNeutrophils % (Manual)2019-01-08 04:37:00 * Test Item Value Reference Range Interpretation Comments Neutrophils % (Manual) (test code = 00537-1) 91 40-74 H [facility] HospitalLymphocytes % (Manual)2019-01-08 04:37:00 * Test Item Value Reference Range Interpretation Comments Lymphocytes % (Manual) (test code = 737-7) 6 19-48 L [facility] HospitalMonocytes % (Manual)2019-01-08 04:37:00* Test Item Value Reference Range Interpretation Comments Monocytes % (Manual) (test code = 744-3) 3 3.4-9.0 L [facility] HospitalPlatelet Oxwlhrdr4761-92-27 04:37:00* Test Item Value Reference Range Interpretation Comments Platelet Estimate (test code = 38120-4) ADEQUATE [facility] HospitalPlatelet Morphology Ohxrini2551-77-83 04:37:00* Test Item Value Reference Range Interpretation Comments Platelet Morphology Comment (test code = 59207-2) NORMAL [facility] HospitalRed Cell Morphology Hzfedxu6420-17-01 04:37:00* Test Item Value Reference Range Interpretation Comments Red Cell Morphology Comment (test code = 6742-1) NORMAL [facility] HospitalDifferential Total Cells Counted 2019-01-08 04:37:00* Test Item Value Reference Range Interpretation Comments Differential Total Cells Counted (test code = Differsean tial Total Cells Counted) 100 [facility] HospitalNeutrophils % (Manual)2019-01-08 04:37:00 * Test Item Value Reference Range Interpretation Comments Neutrophils % (Manual) (test code = 53426-7) 91 40-74 H [facility] HospitalLymphocytes % (Manual)2019-01-08 04:37:00 * Test Item Value Reference Range Interpretation Comments Lymphocytes % (Manual) (test code = 737-7) 6 19-48 L [facility] HospitalMonocytes % (Manual)2019-01-08 04:37:00* Test Item Value Reference Range Interpretation Comments Monocytes % (Manual) (test code = 744-3) 3 3.4-9.0 L [facility] HospitalPlatelet Veefpfza3804-86-48 04:37:00* Test Item Value Reference Range Interpretation Comments Platelet Estimate (test code = 90815-3) ADEQUATE [facility] HospitalPlatelet Morphology Armfanq2253-06-82 04:37:00* Test Item Value Reference Range Interpretation Comments Platelet Morphology Comment (test code = 32432-0) NORMAL [facility] HospitalRed Cell Morphology Kuqaqsy3044-84-24 04:37:00* Test Item Value Reference Range Interpretation Comments Red Cell Morphology Comment (test code = 6742-1) NORMAL [facility] HospitalDifferential Total Cells Counted 2019-01-08 04:37:00* Test Item Value Reference Range Interpretation Comments Differential Total Cells Counted (test code = Differsean tial Total Cells Counted) 100 [facility] HospitalNeutrophils % (Manual)2019-01-08 04:37:00 * Test Item Value Reference Range Interpretation Comments Neutrophils % (Manual) (test code = 74088-4) 91 40-74 H [facility] HospitalLymphocytes % (Manual)2019-01-08 04:37:00 * Test Item Value Reference Range Interpretation Comments Lymphocytes % (Manual) (test code = 737-7) 6 19-48 L [facility] HospitalMonocytes % (Manual)2019-01-08 04:37:00* Test Item Value Reference Range Interpretation Comments Monocytes % (Manual) (test code = 744-3) 3 3.4-9.0 L [facility] HospitalPlatelet Snsgmlxj0766-94-01 04:37:00* Test Item Value Reference Range Interpretation Comments Platelet Estimate (test code = 75714-5) ADEQUATE [facility] HospitalPlatelet Morphology Pddwsdp6358-33-08 04:37:00* Test Item Value Reference Range Interpretation Comments Platelet Morphology Comment (test code = 14475-9) NORMAL [facility] HospitalRed Cell Morphology Viygthn9563-65-32 04:37:00* Test Item Value Reference Range Interpretation Comments Red Cell Morphology Comment (test code = 6742-1) NORMAL [facility] HospitalDifferential Total Cells Counted 2019-01-08 04:37:00* Test Item Value Reference Range Interpretation Comments Differential Total Cells Counted (test code = Differsean tial Total Cells Counted) 100 [facility] HospitalNeutrophils % (Manual)2019-01-08 04:37:00 * Test Item Value Reference Range Interpretation Comments Neutrophils % (Manual) (test code = 39669-6) 91 40-74 H [facility] HospitalLymphocytes % (Manual)2019-01-08 04:37:00 * Test Item Value Reference Range Interpretation Comments Lymphocytes % (Manual) (test code = 737-7) 6 19-48 L [facility] HospitalMonocytes % (Manual)2019-01-08 04:37:00* Test Item Value Reference Range Interpretation Comments Monocytes % (Manual) (test code = 744-3) 3 3.4-9.0 L [facility] HospitalPlatelet Bfazttew5335-73-52 04:37:00* Test Item Value Reference Range Interpretation Comments Platelet Estimate (test code = 00732-6) ADEQUATE [facility] HospitalPlatelet Morphology Exejfnt4003-22-68 04:37:00* Test Item Value Reference Range Interpretation Comments Platelet Morphology Comment (test code = 29371-3) NORMAL [facility] HospitalRed Cell Morphology Imsbjws7853-88-51 04:37:00* Test Item Value Reference Range Interpretation Comments Red Cell Morphology Comment (test code = 6742-1) NORMAL [facility] HospitalDifferential Total Cells Counted 2019-01-08 04:37:00* Test Item Value Reference Range Interpretation Comments Differential Total Cells Counted (test code = Differsean tial Total Cells Counted) 100 [facility] HospitalNeutrophils % (Manual)2019-01-08 04:37:00 * Test Item Value Reference Range Interpretation Comments Neutrophils % (Manual) (test code = 41800-8) 91 40-74 H [facility] HospitalLymphocytes % (Manual)2019-01-08 04:37:00 * Test Item Value Reference Range Interpretation Comments Lymphocytes % (Manual) (test code = 737-7) 6 19-48 L [facility] HospitalMonocytes % (Manual)2019-01-08 04:37:00* Test Item Value Reference Range Interpretation Comments Monocytes % (Manual) (test code = 744-3) 3 3.4-9.0 L [facility] HospitalPlatelet Cbhcucrk8192-88-52 04:37:00* Test Item Value Reference Range Interpretation Comments Platelet Estimate (test code = 76594-4) ADEQUATE [facility] HospitalPlatelet Morphology Oivynce8967-73-83 04:37:00* Test Item Value Reference Range Interpretation Comments Platelet Morphology Comment (test code = 31695-0) NORMAL [facility] HospitalRed Cell Morphology Qijtmwj8190-13-97 04:37:00* Test Item Value Reference Range Interpretation Comments Red Cell Morphology Comment (test code = 6742-1) NORMAL [facility] HospitalDifferential Total Cells Counted 2019-01-08 04:37:00* Test Item Value Reference Range Interpretation Comments Differential Total Cells Counted (test code = Differsean tial Total Cells Counted) 100 [facility] HospitalNeutrophils % (Manual)2019-01-08 04:37:00 * Test Item Value Reference Range Interpretation Comments Neutrophils % (Manual) (test code = 72291-6) 91 40-74 H [facility] HospitalLymphocytes % (Manual)2019-01-08 04:37:00 * Test Item Value Reference Range Interpretation Comments Lymphocytes % (Manual) (test code = 737-7) 6 19-48 L [facility] HospitalMonocytes % (Manual)2019-01-08 04:37:00* Test Item Value Reference Range Interpretation Comments Monocytes % (Manual) (test code = 744-3) 3 3.4-9.0 L [facility] HospitalPlatelet Rqmdesom7842-90-27 04:37:00* Test Item Value Reference Range Interpretation Comments Platelet Estimate (test code = 07974-1) ADEQUATE [facility] HospitalPlatelet Morphology Tpfrrtm4194-31-70 04:37:00* Test Item Value Reference Range Interpretation Comments Platelet Morphology Comment (test code = 09367-0) NORMAL [facility] HospitalRed Cell Morphology Zpttwwr8577-25-57 04:37:00* Test Item Value Reference Range Interpretation Comments Red Cell Morphology Comment (test code = 6742-1) NORMAL [facility] HospitalUrine JSY7502-41-49 11:55:00* Test Item Value Reference Range Interpretation Comments Urine WBC (test code = 5821-4) 0-5 0-5 [facility] HospitalUrine EQA7695-35-63 11:55:00* Test Item Value Reference Range Interpretation Comments Urine RBC (test code = 15265-4) NONE 0-5 [facility] HospitalUrine Qdvlflhv3390-30-62 11:55:00* Test Item Value Reference Range Interpretation Comments Urine Bacteria (test code = 75557-8) NONE NONE [facility] HospitalUrine Epithelial Dvysm3482-01-22 11:55:00 * Test Item Value Reference Range Interpretation Comments Urine Epithelial Cells (test code = 58834-1) MODERATE NONE [facility] Transitional Epithelial Cells 2019-01-07 11:55:00* Test Item Value Reference Range Interpretation Comments Urine Transitional Epithelial Cells (test code = 8249-5) RARE NONE [facility] Hyaline Txxjj3168-17-49 11:55:00* Test Item Value Reference Range Interpretation Comments Urine Hyaline Casts (test code = 88216-6) >15 0-1 H [facility] Transitional Epithelial Cells 2019-01-07 11:55:00* Test Item Value Reference Range Interpretation Comments Urine Transitional Epithelial Cells (test code = 8249-5) RARE NONE [facility] Hyaline Ecatq3592-87-42 11:55:00* Test Item Value Reference Range Interpretation Comments Urine Hyaline Casts (test code = 17883-1) >15 0-1 H [facility] Transitional Epithelial Cells 2019-01-07 11:55:00* Test Item Value Reference Range Interpretation Comments Urine Transitional Epithelial Cells (test code = 8249-5) RARE NONE [facility] Transitional Epithelial Cells 2019-01-07 11:55:00* Test Item Value Reference Range Interpretation Comments Urine Transitional Epithelial Cells (test code = 8249-5) RARE NONE [facility] Transitional Epithelial Cells 2019-01-07 11:55:00* Test Item Value Reference Range Interpretation Comments Urine Transitional Epithelial Cells (test code = 8249-5) RARE NONE [facility] Transitional Epithelial Cells 2019-01-07 11:55:00* Test Item Value Reference Range Interpretation Comments Urine Transitional Epithelial Cells (test code = 8249-5) RARE NONE [facility] Transitional Epithelial Cells 2019-01-07 11:55:00* Test Item Value Reference Range Interpretation Comments Urine Transitional Epithelial Cells (test code = 8249-5) RARE NONE [facility] Fxzdm6835-58-92 11:47:00* Test Item Value Reference Range Interpretation Comments Urine Color (test code = 5778-6) STRAW YELLOW [facility] Esmrsgr3262-61-86 11:47:00* Test Item Value Reference Range Interpretation Comments Urine Clarity (test code = 03549-2) CLEAR CLEAR [facility] Specific Ertneqt2537-48-37 11:47:00 * Test Item Value Reference Range Interpretation Comments Urine Specific [place] (test code = 5811-5) 1.010 1.010-1.02 5 [facility] [id number] 11:47:00* Test Item Value Reference Range Interpretation Comments Urine pH (test code = 29734-3) 6 5-7 [facility] Leukocyte Zinmecod8477-69-78 11:47:00* Test Item Value Reference Range Interpretation Comments Urine Leukocyte Esterase (test code = 5799-2) NEGATIVE NEGATIVE [facility] Dzgihat9990-51-38 11:47:00* Test Item Value Reference Range Interpretation Comments Urine Nitrite (test code = 75705-2) NEGATIVE NEGATIVE [facility] Oiczbvb3341-18-32 11:47:00* Test Item Value Reference Range Interpretation Comments Urine Protein (test code = 5804-0) NEGATIVE NEGATIVE [facility] Glucose (UA)2019-01-07 11:47:00* Test Item Value Reference Range Interpretation Comments Urine Glucose (UA) (test code = 2349-9) NEGATIVE NEGATIVE [facility] Xgxdbxa5341-87-44 11:47:00* Test Item Value Reference Range Interpretation Comments Urine Ketones (test code = 83686-3) NEGATIVE NEGATIVE [facility] Ugjragxxxzoe6884-66-10 11:47:00* Test Item Value Reference Range Interpretation Comments Urine Urobilinogen (test code = 34729-4) 0.2 0.2-1 [facility] Ludzogluk8829-73-45 11:47:00* Test Item Value Reference Range Interpretation Comments Urine Bilirubin (test code = 1978-6) NEGATIVE NEGATIVE [facility] Njzhd8129-46-37 11:47:00* Test Item Value Reference Range Interpretation Comments Urine Blood (test code = 41113-5) NEGATIVE NEGATIVE [facility] HospitalCreatine Kinase SI1662-69-74 15:17:00* Test Item Value Reference Range Interpretation Comments Creatine Kinase MB (test code = 51306-9) 2.50 0-5.0 [facility] HospitalTroponin I6446-76-00 15:17:00* Test Item Value Reference Range Interpretation Comments Troponin I (test code = GKT4556) 0.005 0-0.300 [facility] HospitalCreat[facility] Dhwuqe5255-39-95 15:04:00* Test Item Value Reference Range Interpretation Comments Creatine Kinase (test code = 2157-6) 66 30-200 [facility] HospitalUS ABDOMEN FKFUNFHY5736-97-35 12:01:00 [facility] [address] [place] [address] Patient Name: STEVE BENEDICT MR #: [id number] : 1945 Age/Sex: 73/M Req #: [id number] Adm Physician: ROSALIE SHORT MD Ordered by: Samara Das GROUP ACTIVITIES AIDE Report #: [id number] Location: MED/SURG Room/Bed: [facility] Procedure: [id number] U S/US ABDOMEN COMPLETE Exam Date: 01/06/19 [...] 1210 COPY TO: SAMARA DAS NP Free Juywpagus7997-64-72 09:35:00* Test Item Value Reference Range Interpretation Comments Free Thyroxine (test code = 3024-7) 0.76 0.9-1.8 L [facility] HospitalThyroid Stimulating Hormone (TSH) 2019-01-06 09:35:00* Test Item Value Reference Range Interpretation Comments Thyroid Stimulating Hormone (TSH) (test code = 44682-7) 0.739 0.350-4.940 [facility] HospitalHemoglobin A1c Cqelgmr0301-17-12 08:54:00 * Test Item Value Reference Range Interpretation Comments Hemoglobin A1c Percent (test code = Hemoglobin A1c Percent) 6.2 4.0-7.0 [facility] HospitalArterial Blood dX7170-81-81 01:40:00* Test Item Value Reference Range Interpretation Comments Arterial Blood pH (test code = 2744-1) 7.35 7.31-7.41 [facility] HospitalAr[facility] Blood Partial Pressure CO2 2019-01-06 01:40:00* Test Item Value Reference Range Interpretation Comments Arterial Blood Partial Pressure CO2 (test code = 2018-) 66 41-51 HH Results called to MELISA ORDONEZ at 2005 on 01/05/19 by Jimy Rosales. RB OK.[facility] HospitalArterial Blood Partial Pressure Z72792-60-97 01:40:00* Test Item Value Reference Range Interpretation Comments Arterial Blood Partial Pressure O2 (test code = 2018-8) 98 80-105 [facility] HospitalAr[facility]ial Blood FGJ22311-09-74 01:40:00* Test Item Value Reference Range Interpretation Comments Arterial Blood HCO3 (test code = 1960-4) 36 23-28 H [facility] HospitalAr[facility]ial Blood Base Mxhnwj0356-29-55 01:40:00* Test Item Value Reference Range Interpretation Comments Arterial Blood Base Excess (test code = 1925-7) 10.0 -2-3 H [facility] HospitalAr[facility]ial Blood Oxygen Saturation 2019-01-06 01:40:00* Test Item Value Reference Range Interpretation Comments Arterial Blood Oxygen Saturation (test code = 2708-6) 97.0 95-98 [facility] HospitalFiO22019-03-13 01:40:00* Test Item Value Reference Range Interpretation Comments FiO2 (test code = FiO2) 35 PT ON 4L NC SATTING 100% HR80 [id number] Orthopedic Hospital Arterial Blood eB8965-26-11 01:40:00* Test Item Value Reference Range Interpretation Comments Arterial Blood pH (test code = 2744-1) 7.35 7.31-7.41 [facility] HospitalAr[facility]ial Blood Partial Pressure CO2 2019-01-06 01:40:00* Test Item Value Reference Range Interpretation Comments Arterial Blood Partial Pressure CO2 (test code = 2018-8) 66 41-51 HH Results called to MELISA ORDONEZ at 2004 on 01/05/19 by Jimy Rosales. RB OK.[facility] HospitalArterial Blood Partial Pressure Z72865-32-73 01:40:00* Test Item Value Reference Range Interpretation Comments Arterial Blood Partial Pressure O2 (test code = 2018-8) 98 80-105 [facility] HospitalArterial Blood WYJ37899-48-12 01:40:00* Test Item Value Reference Range Interpretation Comments Arterial Blood HCO3 (test code = 1960-4) 36 23-28 H [facility] HospitalArterial Blood Base Eguotz8914-70-26 01:40:00* Test Item Value Reference Range Interpretation Comments Arterial Blood Base Excess (test code = 1925-7) 10.0 -2-3 H [facility] HospitalArterial Blood Oxygen Saturation 2019-01-06 01:40:00* Test Item Value Reference Range Interpretation Comments Arterial Blood Oxygen Saturation (test code = 2708-6) 97.0 95-98 [facility] HospitalFiO22019-03-13 01:40:00* Test Item Value Reference Range Interpretation Comments FiO2 (test code = FiO2) 35 PT ON 4L NC SATTING 100% HR80 [id number] Orthopedic Hospital Arterial Blood jU4932-64-74 01:40:00* Test Item Value Reference Range Interpretation Comments Arterial Blood pH (test code = 2744-1) 7.35 7.31-7.41 [facility] HospitalAr[facility]ial Blood Partial Pressure CO2 2019-01-06 01:40:00* Test Item Value Reference Range Interpretation Comments Arterial Blood Partial Pressure CO2 (test code = 2018-8) 66 41-51 HH Results called to MELISA ORDONEZ at 2004 on 01/05/19 by Jimy Rosales. RB OK.[facility] HospitalArterial Blood Partial Pressure F39412-16-06 01:40:00* Test Item Value Reference Range Interpretation Comments Arterial Blood Partial Pressure O2 (test code = 2018-8) 98 80-105 [facility] HospitalArterial Blood FVK00707-83-65 01:40:00* Test Item Value Reference Range Interpretation Comments Arterial Blood HCO3 (test code = 1960-4) 36 23-28 H [facility] Blood Base Ubcqbc1872-60-82 01:40:00* Test Item Value Reference Range Interpretation Comments Arterial Blood Base Excess (test code = 1925-7) 10.0 -2-3 H [facility] HospitalArterial Blood Oxygen Saturation 2019-01-06 01:40:00* Test Item Value Reference Range Interpretation Comments Arterial Blood Oxygen Saturation (test code = 2708-6) 97.0 95-98 [facility] HospitalFiO22019-03-13 01:40:00* Test Item Value Reference Range Interpretation Comments FiO2 (test code = FiO2) 35 PT ON 4L NC SATT[place] 100% HR80 [id number] Orthopedic Hospital Arterial Blood rO9323-60-29 01:40:00* Test Item Value Reference Range Interpretation Comments Arterial Blood pH (test code = 2744-1) 7.35 7.31-7.41 [facility] HospitalAr[facility] Blood Partial Pressure CO2 2019-01-06 01:40:00* Test Item Value Reference Range Interpretation Comments Arterial Blood Partial Pressure CO2 (test code = 2018-) 66 41-51 HH Results called to MELISA ORDONEZ at 2005 on 01/05/19 by Jimy Rosales. RB OK.[facility] HospitalArterial Blood Partial Pressure B58129-04-29 01:40:00* Test Item Value Reference Range Interpretation Comments Arterial Blood Partial Pressure O2 (test code = 2018-8) 98 80-105 [facility] HospitalArterial Blood XGA26510-50-14 01:40:00* Test Item Value Reference Range Interpretation Comments Arterial Blood HCO3 (test code = 1960-4) 36 23-28 [facility] Base Yabnyy5802-68-10 01:40:00* Test Item Value Reference Range Interpretation Comments Arterial Blood Base Excess (test code = 1925-7) 10.0 -2-3 H [facility] Blood Oxygen Saturation 2019-01-06 01:40:00* Test Item Value Reference Range Interpretation Comments Arterial Blood Oxygen Saturation (test code = 2708-6) 97.0 95-98 [facility] HospitalFiO22019-03-13 01:40:00* Test Item Value Reference Range Interpretation Comments FiO2 (test code = FiO2) 35 PT ON 4L NC [place]ATT[place] 100% HR80 [id number] Orthopedic Hospital Arterial Blood bA8718-00-87 01:40:00* Test Item Value Reference Range Interpretation Comments Arterial Blood pH (test code = 2744-1) 7.35 7.31-7.41 [facility] HospitalAr[facility]ial Blood Partial Pressure CO2 2019-01-06 01:40:00* Test Item Value Reference Range Interpretation Comments Arterial Blood Partial Pressure CO2 (test code = 2018-8) 66 41-51 HH Results called to MELISA ORDONEZ at 2005 on 01/05/19 by Jimy Rosales. RB OK.[facility] HospitalArterial Blood Partial Pressure Z86123-83-30 01:40:00* Test Item Value Reference Range Interpretation Comments Arterial Blood Partial Pressure O2 (test code = 2018-8) 98 80-105 [facility] HospitalArterial Blood XDA49293-88-84 01:40:00* Test Item Value Reference Range Interpretation Comments Arterial Blood HCO3 (test code = 1960-4) 36 23-28 H [facility] HospitalArterial Blood Base Qtiikt8925-64-13 01:40:00* Test Item Value Reference Range Interpretation Comments Arterial Blood Base Excess (test code = 1925-7) 10.0 -2-3 H [facility] HospitalArterial Blood Oxygen Saturation 2019-01-06 01:40:00* Test Item Value Reference Range Interpretation Comments Arterial Blood Oxygen Saturation (test code = 2708-6) 97.0 95-98 [facility] HospitalFiO22019-03-13 01:40:00* Test Item Value Reference Range Interpretation Comments FiO2 (test code = FiO2) 35 PT ON 4L NC SATT[place] 100% HR80 [id number] Orthopedic HospitalCT CHEST H5286-13-09 21:08:00 [facility] [address] [address] Patient Name: STEVE BENEDICT MR #: [id number] : 1945 Age/Sex: 73/M Req #: [id number] Adm Physician: Ordered by: TAMIE WADDELL NP Report #: [id number] Location: ER Room/Bed: Procedure: [id number] CT/CT CHEST W Exam Date: 01/05/19 Exam Time: 2004 REPORT STATUS: Signed EXAM: CT Ch est WITH contrast (PE Protocol) INDICATION: Shortness of breath NAZANIN RISON: Chest x-ray 01/05/2019 TECHNIQUE: Chest was scanned utilizing a Postmaster tidetector helical scanner from the lung apex [...] TAMIE WADDELL NP CHEST SINGLE (PORTABLE)2019-01-05 17:14:00 [place] [address] Patient Name: STEVE BENEDICT MR #: [id number] : 1945 Age/Sex: 73/M Req #: [id number] Adm Physician: Ordered by: TAMIE WADDELL GROUP ACTIVITIES AIDE Report #: [id number] Location: ER Room/Bed: Procedure: [id number] DX/CHEST SINGLE (PORTABLE) Exam Date: 01/05/19 Exam [...] COPY TO: TAMIE ARREGUIN NP B-Type Natriuretic Nxusrpb5047-86-56 15:08:00* Test Item Value Reference Range Interpretation Comments B-Type Natriuretic Peptide (test code = 00651-5) 344.6 0-100 H [facility] HospitalCreatine Kinase PC9265-17-66 15:07:00* Test Item Value Reference Range Interpretation Comments Creatine Kinase MB (test code = 29772-6) 1.70 0-5.0 [facility] HospitalTroponin [id number] 15:07:00* Test Item Value Reference Range Interpretation Comments Troponin I (test code = EQQ2125) 0.015 0-0.300 [facility] Hospital[facility] Rxkho5732-09-85 14:59:00* Test Item Value Reference Range Interpretation Comments Sodium Level (test code = 2951-2) 138 136-145 [facility] HospitalPotassium Gabdr3391-58-21 14:59:00* Test Item Value Reference Range Interpretation Comments Potassium Level (test code = 2823-3) 3.8 3.5-5.1 [facility] HospitalChloride Oyety1308-61-33 14:59:00* Test Item Value Reference Range Interpretation Comments Chloride Level (test code = 2075-0) 93 98-107 L [facility] HospitalCarbon Dioxide Ssori8300-44-00 14:59:00* Test Item Value Reference Range Interpretation Comments Carbon Dioxide Level (test code = 2028-9) 39 22-29 H [facility] HospitalAnion Nmo7585-98-16 14:59:00* Test Item Value Reference Range Interpretation Comments Anion Gap (test code = 94690-1) 9.8 8-16 [facility] HospitalBlood Urea Qqenwrju2692-65-98 14:59:00* Test Item Value Reference Range Interpretation Comments Blood Urea Nitrogen (test code = 3094-0) 18 7-26 [facility] HospitalCreatinine2019-03-12 14:59:00* Test Item Value Reference Range Interpretation Comments Creatinine (test code = 2160-0) 1.47 0.72-1.25 H [facility] HospitalBUN/Creatinine Urcpy3726-92-63 14:59:00* Test Item Value Reference Range Interpretation Comments BUN/Creatinine Ratio (test code = 3097-3) 12 6-25 [facility] HospitalEstimat Glomerular Filtration Rate 2019-01-05 14:59:00* Test Item Value Reference Range Interpretation Comments Estimat Glomerular Filtration Rate (test code = 894325358) 47 >60 L Ranges were taken from the National Kidney Disease Education Program and the [facility] [employer] literature.Reference ranges:60 or greater: Vjhdtb33-26 ( for 3 consecutive months): Chronic kidney disease 15 or less: Kidney failureLegent Orthopedic HospitalGlucose Cmddy0041-32-19 14:59:00* Test Item Value Reference Range Interpretation Comments Glucose Level (test code = QTR9165) 116 74-118 [facility] HospitalCalcium Lajtt5231-55-31 14:59:00* Test Item Value Reference Range Interpretation Comments Calcium Level (test code = 19580-8) 9.0 8.4-10.2 [facility] HospitalTo[facility] Jwzigadve7390-21-69 14:59:00* Test Item Value Reference Range Interpretation Comments Total Bilirubin (test code = 1975-2) 0.6 0.2-1.2 [facility] HospitalAspartate Amino Transf (AST/SGOT) 2019-01-05 14:59:00* Test Item Value Reference Range Interpretation Comments Aspartate Amino Transf (AST/SGOT) (test code = Aspartate Amino Transf (AST/SGOT)) 17 5-34 [facility] HospitalAlanine Aminotransferase (ALT/SGPT) 2019-01-05 14:59:00* Test Item Value Reference Range Interpretation Comments Alanine Aminotransferase (ALT/SGPT) (test code = 1742-6) 14 0-55 [facility] Qgpisay3804-20-34 14:59:00* Test Item Value Reference Range Interpretation Comments Total Protein (test code = 2885-2) 6.6 6.5-8.1 [facility] HospitalAlbumin2019-03-12 14:59:00* Test Item Value Reference Range Interpretation Comments Albumin (test code = 1751-7) 3.5 3.5-5.0 [facility] HospitalGlobulin2019-03-12 14:59:00* Test Item Value Reference Range Interpretation Comments Globulin (test code = 74164-5) 3.1 2.3-3.5 [facility] HospitalAlbumin/Globulin Bvzfh4611-40-00 14:59:00 * Test Item Value Reference Range Interpretation Comments Albumin/Globulin Ratio (test code = 1759-0) 1.1 0.8-2.0 [facility] HospitalAlkaline Sjsjzwdauwz6003-81-30 14:59:00* Test Item Value Reference Range Interpretation Comments Alkaline Phosphatase (test code = 6768-6) 106 40-150 [facility] HospitalCreatine Hguggt5222-95-00 14:59:00* Test Item Value Reference Range Interpretation Comments Creatine Kinase (test code = 2157-6) 83 30-200 [facility] HospitalToj[facility] Bbjaqnpnh6092-74-06 14:59:00* Test Item Value Reference Range Interpretation Comments Total Bilirubin (test code = 1975-2) 0.6 0.2-1.2 [facility] HospitalAspartate Amino Transf (AST/SGOT) 2019-01-05 14:59:00* Test Item Value Reference Range Interpretation Comments Aspartate Amino Transf (AST/SGOT) (test code = Aspartate Amino Transf (AST/SGOT)) 17 5-34 [facility] HospitalAlanine Aminotransferase (ALT/SGPT) 2019-01-05 14:59:00* Test Item Value Reference Range Interpretation Comments Alanine Aminotransferase (ALT/SGPT) (test code = 1742-6) 14 0-55 [facility] HospitalTotal Oapbyde7075-03-30 14:59:00* Test Item Value Reference Range Interpretation Comments Total Protein (test code = 2885-2) 6.6 6.5-8.1 [facility] HospitalAlbumin2019-03-12 14:59:00* Test Item Value Reference Range Interpretation Comments Albumin (test code = 1751-7) 3.5 3.5-5.0 [facility] HospitalGlobulin2019-03-12 14:59:00* Test Item Value Reference Range Interpretation Comments Globulin (test code = 21782-8) 3.1 2.3-3.5 [facility] HospitalAlbumin/Globulin Ujloa0035-14-90 14:59:00 * Test Item Value Reference Range Interpretation Comments Albumin/Globulin Ratio (test code = 1759-0) 1.1 0.8-2.0 [facility] HospitalAlkaline Hedsghmsyhh6615-65-75 14:59:00* Test Item Value Reference Range Interpretation Comments Alkaline Phosphatase (test code = 6768-6) 106 40-150 [facility] HospitalLactic Acid Tyrga8369-15-20 14:57:00* Test Item Value Reference Range Interpretation Comments Lactic Acid Level (test code = Lactic Acid Level) 13.5 4.5- 19.8 [facility] HospitalLactic Acid Vgqeh7851-60-61 14:57:00* Test Item Value Reference Range Interpretation Comments Lactic Acid Level (test code = Lactic Acid Level) 13.5 4.5- 19.8 [facility] HospitalLactic Acid Mnapb5768-00-27 14:57:00* Test Item Value Reference Range Interpretation Comments Lactic Acid Level (test code = Lactic Acid Level) 13.5 4.5- 19.8 [facility] HospitalLactic Acid Kdbbz1980-45-92 14:57:00* Test Item Value Reference Range Interpretation Comments Lactic Acid Level (test code = Lactic Acid Level) 13.5 4.5- 19.8 [facility] HospitalProthrombin Esmh0703-39-70 14:51:00* Test Item Value Reference Range Interpretation Comments Prothrombin Time (test code = 5902-2) 16.2 11.9-14.5 H [facility] HospitalProthromb Time International Ratio 2019-01-05 14:51:00* Test Item Value Reference Range Interpretation Comments Prothromb Time International Ratio (test code = 6301-6) 1.24 Oral Anticoagulant Therapy INR Values:1. Low Intensity Therapy 1.5 - 2.02 . Moderate Intensity Therapy 2.0 - 3.03. High Intensity Therapy(1) 2.5 - 3. 54. High Intensity Therapy(2) 3.0 - 4.05. Panic Value INR > 5.0 [facility] HospitalActivated Partial Thromboplast Time 2019-01-05 14:51:00* Test Item Value Reference Range Interpretation Comments Activated Partial Thromboplast Time (test code = 77938-7) 38.8 23.8-35.5 H [facility] HospitalProthrombin Cnpd5404-86-64 14:51:00* Test Item Value Reference Range Interpretation Comments Prothrombin Time (test code = 5902-2) 16.2 11.9-14.5 H [facility] HospitalProthromb Time International Ratio 2019-01-05 14:51:00* Test Item Value Reference Range Interpretation Comments Prothromb Time International Ratio (test code = 6301-6) 1.24 Oral Anticoagulant Therapy INR Values:1. Low Intensity Therapy 1.5 - 2.02 . Moderate Intensity Therapy 2.0 - 3.03. High Intensity Therapy(1) 2.5 - 3. 54. High Intensity Therapy(2) 3.0 - 4.05. Panic Value INR > 5.0 [facility] HospitalActivated Partial Thromboplast Time 2019-01-05 14:51:00* Test Item Value Reference Range Interpretation Comments Activated Partial Thromboplast Time (test code = 53594-6) 38.8 23.8-35.5 H [facility] HospitalWhite Blood Pkruw6944-75-98 14:43:00* Test Item Value Reference Range Interpretation Comments White Blood Count (test code = 6690-2) 4.52 4.8-10.8 L [facility] HospitalRed Blood Ovisj6711-77-46 14:43:00* Test Item Value Reference Range Interpretation Comments Red Blood Count (test code = 789-8) 5.99 4.3-5.7 H [facility] HospitalHemoglobin2019-03-12 14:43:00* Test Item Value Reference Range Interpretation Comments Hemoglobin (test code = 56017-1) 16.2 14.0-18.0 [facility] HospitalHematocrit2019-03-12 14:43:00* Test Item Value Reference Range Interpretation Comments Hematocrit (test code = 4544-3) 55.5 38.2-49.6 H [facility] HospitalMean Corpuscular Xlqlte5999-11-66 14:43:00* Test Item Value Reference Range Interpretation Comments Mean Corpuscular Volume (test code = 787-2) 92.7 81-99 [facility] HospitalMean Corpuscular Ymxwzknogg4520-90-29 14:43:00* Test Item Value Reference Range Interpretation Comments Mean Corpuscular Hemoglobin (test code = 785-6) 27.0 28-32 L [facility] HospitalMean Corpuscular Hemoglobin Concent 2019-01-05 14:43:00* Test Item Value Reference Range Interpretation Comments Mean Corpuscular Hemoglobin Concent (test code = 786-4) 29.2 31-35 L [facility] HospitalRed Cell Distribution Sdyug9796-29-07 14:43:00* Test Item Value Reference Range Interpretation Comments Red Cell Distribution Width (test code = 27100-9) 18.1 11.7 -14.4 H [facility] HospitalPlatelet Cxofc2188-40-21 14:43:00* Test Item Value Reference Range Interpretation Comments Platelet Count (test code = 777-3) 171 140-360 [facility] HospitalNeutrophils (%) (Auto)2019-01-05 14:43:00 * Test Item Value Reference Range Interpretation Comments Neutrophils (%) (Auto) (test code = 95379-9) 62.2 38.7-80.0 [facility] HospitalLymphocytes (%) (Auto)2019-01-05 14:43:00 * Test Item Value Reference Range Interpretation Comments Lymphocytes (%) (Auto) (test code = 736-9) 17.7 18.0-39.1 L [facility] HospitalMonocytes (%) (Auto)2019-01-05 14:43:00* Test Item Value Reference Range Interpretation Comments Monocytes (%) (Auto) (test code = 5905-5) 11.9 4.4-11.3 H [facility] HospitalEosinophils (%) (Auto)2019-01-05 14:43:00 * Test Item Value Reference Range Interpretation Comments Eosinophils (%) (Auto) (test code = 713-8) 6.9 0.0-6.0 H [facility] HospitalBasophils (%) (Auto)2019-01-05 14:43:00* Test Item Value Reference Range Interpretation Comments Basophils (%) (Auto) (test code = 706-2) 0.9 0.0-1.0 [facility] HospitalIM GRANULOCYTES %2019-01-05 14:43:00* Test Item Value Reference Range Interpretation Comments IM GRANULOCYTES % (test code = IM GRANULOCYTES %) 0.4 0.0- 1.0 [facility] HospitalNeutrophils # (Auto)2019-01-05 14:43:00* Test Item Value Reference Range Interpretation Comments Neutrophils # (Auto) (test code = 751-8) 2.8 2.1-6.9 [facility] HospitalLymphocytes # (Auto)2019-01-05 14:43:00* Test Item Value Reference Range Interpretation Comments Lymphocytes # (Auto) (test code = 67338-1) 0.8 1.0-3.2 L [facility] HospitalMonocytes # (Auto)2019-01-05 14:43:00* Test Item Value Reference Range Interpretation Comments Monocytes # (Auto) (test code = 742-7) 0.5 0.2-0.8 [facility] HospitalEosinophils # (Auto)2019-01-05 14:43:00* Test Item Value Reference Range Interpretation Comments Eosinophils # (Auto) (test code = 711-2) 0.3 0.0-0.4 [facility] HospitalBasophils # (Auto)2019-01-05 14:43:00* Test Item Value Reference Range Interpretation Comments Basophils # (Auto) (test code = 704-7) 0.0 0.0-0.1 [facility] HospitalAbsolute Immature Granulocyte (auto 2019-01-05 14:43:00* Test Item Value Reference Range Interpretation Comments Absolute Immature Granulocyte (auto (bharat t code = Absolute Immature Granulocyte (auto) 0.02 0-0.1 [facility] HospitalPECIAL PROCEDURE IN CATH QWG6339-85-77 17:11:00 [place] [address] Patient Name: STEVE BENEDICT MR #: [id number] : 1945 Age/Sex: 73/M Req #: [id number] Adm Physician: HAILEE MCGUIRE MD Ordered by: SUHAS BLACK MD Report #: [id number] Location: [facility] Room/Bed: [address] [address] Procedure: [id number] IR/S PECIAL PROCEDURE IN [employer] Exam Date: Exam Time: REPORT STATUS: Signed PROCEDURE: PLACEMENT OF RIGHT IJ TUNNELED SMALL BORE CATHETER WITH ULTRASOUND AND FLUOR OSCOPIC GUIDANCE INDICATION: Requiring half-way IV access for antibiotics OPERATORS: Jose Manuel [...] 1800 COPY TO: SUHAS BLACK MD Bedside Ocqcmxe2232-55-33 11:04:00* Test Item Value Reference Range Interpretation Comments Bedside Glucose (test code = 03724-5) 105 70-120 Meter ID: [id number] [facility] Glucose 2018-12-30 11:04:00* Test Item Value Reference Range Interpretation Comments Bedside Glucose (test code = 25546-3) 105 70-120 [facility]: [id number] 2018-12-16 05:18:00* Test Item Value Reference Range Interpretation Comments Blood Culture (test code = 01715973) NO GROWTH AFTER 5 DAYS, FINAL REPORT [facility] Ugnrecz3640-85-65 05:18:00* Test Item Value Reference Range Interpretation Comments Blood Culture (test code = 28931191) NO GROWTH AFTER 5 DAYS, FINAL REPORT [facility] Xviegyt0705-28-98 11:33:00* Test Item Value Reference Range Interpretation Comments Bedside Glucose (test code = 49511-6) 178 70-120 H Meter ID: [id number] Hospital of LaredoB-Type Natriuretic Graudhk2396-71-00 17:13:00* Test Item Value Reference Range Interpretation Comments B-Type Natriuretic Peptide (test code = 88542-7) 103.7 0-100 [facility] Efdqunk7910-26-87 17:13:00* Test Item Value Reference Range Interpretation Comments B-Type Natriuretic Peptide (test code = 83609-8) 103.7 0-100 [facility] Bdcmy5886-74-94 06:24:00* Test Item Value Reference Range Interpretation Comments Sodium Level (test code = 2951-2) 140 136-145 [facility] Qstek8965-93-96 06:24:00* Test Item Value Reference Range Interpretation Comments Potassium Level (test code = 2823-3) 4.3 3.5-5.1 [facility] HospitalChloride Ruxlf9934-56-28 06:24:00* Test Item Value Reference Range Interpretation Comments Chloride Level (test code = 2075-0) 90 98-107 L [facility] HospitalCarbon Dioxide Lmojs9890-90-19 06:24:00* Test Item Value Reference Range Interpretation Comments Carbon Dioxide Level (test code = 2028-9) 39 22-29 H [facility] HospitalAnion Bgm1905-60-05 06:24:00* Test Item Value Reference Range Interpretation Comments Anion Gap (test code = 32762-9) 15.3 8-16 [facility] HospitalBlood Urea Aphkjumr7890-97-29 06:24:00* Test Item Value Reference Range Interpretation Comments Blood Urea Nitrogen (test code = 3094-0) 34 7-26 H [facility] HospitalCreatinine2019-02-18 06:24:00* Test Item Value Reference Range Interpretation Comments Creatinine (test code = 2160-0) 1.60 0.72-1.25 H [facility] HospitalBUN/Creatinine Zpguv6069-65-49 06:24:00* Test Item Value Reference Range Interpretation Comments BUN/Creatinine Ratio (test code = 3097-3) 21 6-25 [facility] HospitalEstimat Glomerular Filtration Rate 2018-12-14 06:24:00* Test Item Value Reference Range Interpretation Comments Estimat Glomerular Filtration Rate (test code = 323679728) 42 >60 L Ranges were taken from the National Kidney Disease Education Program and the [place] [facility] [employer] literature.Reference ranges:60 or greater: Vplsee26-82 ( for 3 consecutive months): Chronic kidney disease 15 or less: Kidney failureLegent Orthopedic HospitalGlucose Jpati3937-19-11 06:24:00* Test Item Value Reference Range Interpretation Comments Glucose Level (test code = COM6494) 150 74-118 H [facility] HospitalCalcium Mycyc6020-69-82 06:24:00* Test Item Value Reference Range Interpretation Comments Calcium Level (test code = 96790-9) 9.3 8.4-10.2 [facility] Fdnhb1772-54-19 06:24:00* Test Item Value Reference Range Interpretation Comments Sodium Level (test code = 2951-2) 140 136-145 [facility] HospitalPotassium Pofkn6761-67-27 06:24:00* Test Item Value Reference Range Interpretation Comments Potassium Level (test code = 2823-3) 4.3 3.5-5.1 [facility] HospitalChloride Gzebl6714-38-62 06:24:00* Test Item Value Reference Range Interpretation Comments Chloride Level (test code = 2075-0) 90 98-107 L [facility] HospitalCarbon Dioxide Smkfy5171-45-98 06:24:00* Test Item Value Reference Range Interpretation Comments Carbon Dioxide Level (test code = 2028-9) 39 22-29 H [facility] HospitalAnion Evc3066-05-95 06:24:00* Test Item Value Reference Range Interpretation Comments Anion Gap (test code = 34837-5) 15.3 8-16 [facility] HospitalBlood Urea Hngdtksx7132-06-14 06:24:00* Test Item Value Reference Range Interpretation Comments Blood Urea Nitrogen (test code = 3094-0) 34 7-26 H [facility] HospitalCreatinine2019-02-18 06:24:00* Test Item Value Reference Range Interpretation Comments Creatinine (test code = 2160-0) 1.60 0.72-1.25 H [facility] HospitalBUN/Creatinine Wirvz1521-92-67 06:24:00* Test Item Value Reference Range Interpretation Comments BUN/Creatinine Ratio (test code = 3097-3) 21 6-25 [facility] HospitalEstimat Glomerular Filtration Rate 2018-12-14 06:24:00* Test Item Value Reference Range Interpretation Comments Estimat Glomerular Filtration Rate (test code = 308702907) 42 >60 L Ranges were taken from the National Kidney Disease Education Program and the [place] [facility] [employer] [employer] literature.Reference ranges:60 or greater: Yxjfyp67-53 ( for 3 consecutive months): Chronic kidney disease 15 or less: Kidney failureLegent Orthopedic HospitalGlucose Mszun6209-17-75 06:24:00* Test Item Value Reference Range Interpretation Comments Glucose Level (test code = EGZ6272) 150 74-118 H [facility] HospitalCalcium Hnerk7635-13-97 06:24:00* Test Item Value Reference Range Interpretation Comments Calcium Level (test code = 39445-2) 9.3 8.4-10.2 [facility] HospitalBlood Yovrgde0015-13-04 05:18:00* Test Item Value Reference Range Interpretation Comments Blood Culture (test code = 46646614) NO GROWTH AFTER 72 HOURS [facility] HospitalTotal Fuaoxgveq9099-22-26 05:32:00* Test Item Value Reference Range Interpretation Comments Total Bilirubin (test code = 1975-2) 0.7 0.2-1.2 [facility] HospitalAspartate Amino Transf (AST/SGOT) 2018-12-13 05:32:00* Test Item Value Reference Range Interpretation Comments Aspartate Amino Transf (AST/SGOT) (test code = Aspartate Amino Transf (AST/SGOT)) 13 5-34 [facility] HospitalAlanine Aminotransferase (ALT/SGPT) 2018-12-13 05:32:00* Test Item Value Reference Range Interpretation Comments Alanine Aminotransferase (ALT/SGPT) (test code = 1742-6) 25 0-55 [facility] HospitalTotal Iyuwbxq1613-15-40 05:32:00* Test Item Value Reference Range Interpretation Comments Total Protein (test code = 2885-2) 6.0 6.5-8.1 L [facility] HospitalAlbumin2019-02-17 05:32:00* Test Item Value Reference Range Interpretation Comments Albumin (test code = 1751-7) 3.5 3.5-5.0 [facility] HospitalGlobulin2019-02-17 05:32:00* Test Item Value Reference Range Interpretation Comments Globulin (test code = 83798-8) 2.5 2.3-3.5 [facility] HospitalAlbumin/Globulin Owuyu8013-33-19 05:32:00 * Test Item Value Reference Range Interpretation Comments Albumin/Globulin Ratio (test code = 1759-0) 1.4 0.8-2.0 [facility] HospitalAlkaline Khievttjesq9765-31-20 05:32:00* Test Item Value Reference Range Interpretation Comments Alkaline Phosphatase (test code = 6768-6) 69 40-150 [facility] HospitalTotal Knikwmamr2703-40-34 05:32:00* Test Item Value Reference Range Interpretation Comments Total Bilirubin (test code = 1975-2) 0.7 0.2-1.2 [facility] HospitalAspartate Amino Transf (AST/SGOT) 2018-12-13 05:32:00* Test Item Value Reference Range Interpretation Comments Aspartate Amino Transf (AST/SGOT) (test code = Aspartate Amino Transf (AST/SGOT)) 13 5-34 [facility] HospitalAlanine Aminotransferase (ALT/SGPT) 2018-12-13 05:32:00* Test Item Value Reference Range Interpretation Comments Alanine Aminotransferase (ALT/SGPT) (test code = 1742-6) 25 0-55 [facility] HospitalTotal Tbvgctl3228-54-36 05:32:00* Test Item Value Reference Range Interpretation Comments Total Protein (test code = 2885-2) 6.0 6.5-8.1 L [facility] HospitalAlbumin2019-02-17 05:32:00* Test Item Value Reference Range Interpretation Comments Albumin (test code = 1751-7) 3.5 3.5-5.0 [facility] HospitalGlobulin2019-02-17 05:32:00* Test Item Value Reference Range Interpretation Comments Globulin (test code = 67873-0) 2.5 2.3-3.5 [facility] HospitalAlbumin/Globulin Dxfcp9502-66-29 05:32:00 * Test Item Value Reference Range Interpretation Comments Albumin/Globulin Ratio (test code = 1759-0) 1.4 0.8-2.0 [facility] HospitalAlkaline Ofpktayxgrl0451-71-43 05:32:00* Test Item Value Reference Range Interpretation Comments Alkaline Phosphatase (test code = 6768-6) 69 40-150 [facility] HospitalWhite Blood Lwvxj0471-85-53 05:08:00* Test Item Value Reference Range Interpretation Comments White Blood Count (test code = 6690-2) 8.82 4.8-10.8 [facility] HospitalRed Blood Zkmbl4917-76-36 05:08:00* Test Item Value Reference Range Interpretation Comments Red Blood Count (test code = 789-8) 6.47 4.3-5.7 H [facility] HospitalHemoglobin2019-02-17 05:08:00* Test Item Value Reference Range Interpretation Comments Hemoglobin (test code = 54181-5) 16.8 14.0-18.0 [facility] HospitalHematocrit2019-02-17 05:08:00* Test Item Value Reference Range Interpretation Comments Hematocrit (test code = 4544-3) 55.2 38.2-49.6 H [facility] HospitalMean Corpuscular Lbdkmv8826-57-34 05:08:00* Test Item Value Reference Range Interpretation Comments Mean Corpuscular Volume (test code = 787-2) 85.3 81-99 [facility] HospitalMean Corpuscular Mntaypdvrl1156-90-28 05:08:00* Test Item Value Reference Range Interpretation Comments Mean Corpuscular Hemoglobin (test code = 785-6) 26.0 28-32 L [facility] HospitalMean Corpuscular Hemoglobin Concent 2018-12-13 05:08:00* Test Item Value Reference Range Interpretation Comments Mean Corpuscular Hemoglobin Concent (test code = 786-4) 30.4 31-35 L [facility] HospitalRed Cell Distribution Rribm5175-88-12 05:08:00* Test Item Value Reference Range Interpretation Comments Red Cell Distribution Width (test code = 94845-6) 19.9 11.7 -14.4 H [facility] HospitalPlatelet Sobbz7532-79-73 05:08:00* Test Item Value Reference Range Interpretation Comments Platelet Count (test code = 777-3) 198 140-360 [facility] HospitalNeutrophils (%) (Auto)2018-12-13 05:08:00 * Test Item Value Reference Range Interpretation Comments Neutrophils (%) (Auto) (test code = 75807-4) 82.4 38.7-80.0 H [facility] HospitalLymphocytes (%) (Auto)2018-12-13 05:08:00 * Test Item Value Reference Range Interpretation Comments Lymphocytes (%) (Auto) (test code = 736-9) 12.1 18.0-39.1 L [facility] HospitalMonocytes (%) (Auto)2018-12-13 05:08:00* Test Item Value Reference Range Interpretation Comments Monocytes (%) (Auto) (test code = 5905-5) 4.9 4.4-11.3 [facility] HospitalEosinophils (%) (Auto)2018-12-13 05:08:00 * Test Item Value Reference Range Interpretation Comments Eosinophils (%) (Auto) (test code = 713-8) 0.0 0.0-6.0 [facility] HospitalBasophils (%) (Auto)2018-12-13 05:08:00* Test Item Value Reference Range Interpretation Comments Basophils (%) (Auto) (test code = 706-2) 0.1 0.0-1.0 [facility] HospitalIM GRANULOCYTES %2018-12-13 05:08:00* Test Item Value Reference Range Interpretation Comments IM GRANULOCYTES % (test code = IM GRANULOCYTES %) 0.5 0.0- 1.0 [facility] HospitalNeutrophils # (Auto)2018-12-13 05:08:00* Test Item Value Reference Range Interpretation Comments Neutrophils # (Auto) (test code = 751-8) 7.3 2.1-6.9 H [facility] HospitalLymphocytes # (Auto)2018-12-13 05:08:00* Test Item Value Reference Range Interpretation Comments Lymphocytes # (Auto) (test code = 55362-8) 1.1 1.0-3.2 [facility] HospitalMonocytes # (Auto)2018-12-13 05:08:00* Test Item Value Reference Range Interpretation Comments Monocytes # (Auto) (test code = 742-7) 0.4 0.2-0.8 [facility] HospitalEosinophils # (Auto)2018-12-13 05:08:00* Test Item Value Reference Range Interpretation Comments Eosinophils # (Auto) (test code = 711-2) 0.0 0.0-0.4 [facility] HospitalBasophils # (Auto)2018-12-13 05:08:00* Test Item Value Reference Range Interpretation Comments Basophils # (Auto) (test code = 704-7) 0.0 0.0-0.1 [facility] HospitalAbsolute Immature Granulocyte (auto 2018-12-13 05:08:00* Test Item Value Reference Range Interpretation Comments Absolute Immature Granulocyte (auto (bharat t code = Absolute Immature Granulocyte (auto) 0.04 0-0.1 [facility] HospitalWhite Blood Hgalb3094-93-75 05:08:00* Test Item Value Reference Range Interpretation Comments White Blood Count (test code = 6690-2) 8.82 4.8-10.8 [facility] HospitalRed Blood Kdlaa9138-26-39 05:08:00* Test Item Value Reference Range Interpretation Comments Red Blood Count (test code = 789-8) 6.47 4.3-5.7 H [facility] HospitalHemoglobin2019-02-17 05:08:00* Test Item Value Reference Range Interpretation Comments Hemoglobin (test code = 99191-9) 16.8 14.0-18.0 [facility] HospitalHematocrit2019-02-17 05:08:00* Test Item Value Reference Range Interpretation Comments Hematocrit (test code = 4544-3) 55.2 38.2-49.6 H [facility] HospitalMean Corpuscular Xtkyal2702-33-40 05:08:00* Test Item Value Reference Range Interpretation Comments Mean Corpuscular Volume (test code = 787-2) 85.3 81-99 [facility] HospitalMean Corpuscular Tqajmcgswc3166-43-30 05:08:00* Test Item Value Reference Range Interpretation Comments Mean Corpuscular Hemoglobin (test code = 785-6) 26.0 28-32 L [facility] HospitalMean Corpuscular Hemoglobin Concent 2018-12-13 05:08:00* Test Item Value Reference Range Interpretation Comments Mean Corpuscular Hemoglobin Concent (test code = 786-4) 30.4 31-35 L [facility] HospitalRed Cell Distribution Ckakx6546-24-91 05:08:00* Test Item Value Reference Range Interpretation Comments Red Cell Distribution Width (test code = 40406-8) 19.9 11.7 -14.4 H [facility] HospitalPlatelet Wzwzt7837-21-35 05:08:00* Test Item Value Reference Range Interpretation Comments Platelet Count (test code = 777-3) 198 140-360 [facility] HospitalNeutrophils (%) (Auto)2018-12-13 05:08:00 * Test Item Value Reference Range Interpretation Comments Neutrophils (%) (Auto) (test code = 06869-2) 82.4 38.7-80.0 H [facility] HospitalLymphocytes (%) (Auto)2018-12-13 05:08:00 * Test Item Value Reference Range Interpretation Comments Lymphocytes (%) (Auto) (test code = 736-9) 12.1 18.0-39.1 L [facility] HospitalMonocytes (%) (Auto)2018-12-13 05:08:00* Test Item Value Reference Range Interpretation Comments Monocytes (%) (Auto) (test code = 5905-5) 4.9 4.4-11.3 [facility] HospitalEosinophils (%) (Auto)2018-12-13 05:08:00 * Test Item Value Reference Range Interpretation Comments Eosinophils (%) (Auto) (test code = 713-8) 0.0 0.0-6.0 [facility] HospitalBasophils (%) (Auto)2018-12-13 05:08:00* Test Item Value Reference Range Interpretation Comments Basophils (%) (Auto) (test code = 706-2) 0.1 0.0-1.0 [facility] HospitalIM GRANULOCYTES %2018-12-13 05:08:00* Test Item Value Reference Range Interpretation Comments IM GRANULOCYTES % (test code = IM GRANULOCYTES %) 0.5 0.0- 1.0 [facility] HospitalNeutrophils # (Auto)2018-12-13 05:08:00* Test Item Value Reference Range Interpretation Comments Neutrophils # (Auto) (test code = 751-8) 7.3 2.1-6.9 H [facility] HospitalLymphocytes # (Auto)2018-12-13 05:08:00* Test Item Value Reference Range Interpretation Comments Lymphocytes # (Auto) (test code = 43612-3) 1.1 1.0-3.2 [facility] HospitalMonocytes # (Auto)2018-12-13 05:08:00* Test Item Value Reference Range Interpretation Comments Monocytes # (Auto) (test code = 742-7) 0.4 0.2-0.8 [facility] HospitalEosinophils # (Auto)2018-12-13 05:08:00* Test Item Value Reference Range Interpretation Comments Eosinophils # (Auto) (test code = 711-2) 0.0 0.0-0.4 [facility] HospitalBasophils # (Auto)2018-12-13 05:08:00* Test Item Value Reference Range Interpretation Comments Basophils # (Auto) (test code = 704-7) 0.0 0.0-0.1 [facility] HospitalAbsolute Immature Granulocyte (auto 2018-12-13 05:08:00* Test Item Value Reference Range Interpretation Comments Absolute Immature Granulocyte (auto (bharat t code = Absolute Immature Granulocyte (auto) 0.04 0-0.1 [facility] HospitalUrine Random Total Rdlcbrc1404-10-05 15:37:00* Test Item Value Reference Range Interpretation Comments Urine Random Total Protein (test code = 2888-6) 20.3 1-14 H [facility] HospitalUrine Lpiydzkkpb5014-65-68 15:37:00* Test Item Value Reference Range Interpretation Comments Urine Creatinine (test code = 2161-8) 48.99 63-166 L [facility] HospitalUrine Protein/Creatinine Pfeft2013-22-36 15:37:00* Test Item Value Reference Range Interpretation Comments Urine Protein/Creatinine Ratio (test code = 59269-4) 0.41 [facility] HospitalUrine Random Total Vrodqkg4348-17-33 15:37:00* Test Item Value Reference Range Interpretation Comments Urine Random Total Protein (test code = 2888-6) 20.3 1-14 H [facility] HospitalUrine Bcjygmihii8590-37-06 15:37:00* Test Item Value Reference Range Interpretation Comments Urine Creatinine (test code = 2161-8) 48.99 63-166 L [facility] HospitalUrine Protein/Creatinine Jhbog7820-77-17 15:37:00* Test Item Value Reference Range Interpretation Comments Urine Protein/Creatinine Ratio (test code = 04926-7) 0.41 [facility] HospitalUrine Random Total Jterawm4284-17-94 15:37:00* Test Item Value Reference Range Interpretation Comments Urine Random Total Protein (test code = 2888-6) 20.3 1-14 H [facility] HospitalUrine Ndbwxwefwn7228-16-29 15:37:00* Test Item Value Reference Range Interpretation Comments Urine Creatinine (test code = 2161-8) 48.99 63-166 L [facility] HospitalUrine Protein/Creatinine Bvgns3734-36-29 15:37:00* Test Item Value Reference Range Interpretation Comments Urine Protein/Creatinine Ratio (test code = 82886-1) 0.41 [facility] HospitalUrine Random Total Kvkxhmn5849-48-80 15:37:00* Test Item Value Reference Range Interpretation Comments Urine Random Total Protein (test code = 2888-6) 20.3 1-14 H [facility] HospitalUrine Igfrtuhmgw9037-40-65 15:37:00* Test Item Value Reference Range Interpretation Comments Urine Creatinine (test code = 2161-8) 48.99 63-166 L [facility] HospitalUrine Protein/Creatinine Anrbj7324-60-87 15:37:00* Test Item Value Reference Range Interpretation Comments Urine Protein/Creatinine Ratio (test code = 23560-4) 0.41 [facility] HospitalUrine Random Total Bgxljdf6923-57-27 15:37:00* Test Item Value Reference Range Interpretation Comments Urine Random Total Protein (test code = 2888-6) 20.3 1-14 H [facility] HospitalUrine Zqubhmcnyp7848-16-61 15:37:00* Test Item Value Reference Range Interpretation Comments Urine Creatinine (test code = 2161-8) 48.99 63-166 L [facility] HospitalUrine Protein/Creatinine Yaoyx3417-41-25 15:37:00* Test Item Value Reference Range Interpretation Comments Urine Protein/Creatinine Ratio (test code = 82821-9) 0.41 [facility] HospitalUrine Random Total Uqbepyn7883-45-93 15:37:00* Test Item Value Reference Range Interpretation Comments Urine Random Total Protein (test code = 2888-6) 20.3 1-14 H [facility] HospitalUrine Sgruksedhe5971-42-11 15:37:00* Test Item Value Reference Range Interpretation Comments Urine Creatinine (test code = 2161-8) 48.99 63-166 L [facility] HospitalUrine Protein/Creatinine Legyi6688-77-15 15:37:00* Test Item Value Reference Range Interpretation Comments Urine Protein/Creatinine Ratio (test code = 30997-7) 0.41 [facility] HospitalUrine Random Total Qlgpxsl1856-80-50 15:37:00* Test Item Value Reference Range Interpretation Comments Urine Random Total Protein (test code = 2888-6) 20.3 1-14 H [facility] HospitalUrine Jkshdmiotj8828-23-68 15:37:00* Test Item Value Reference Range Interpretation Comments Urine Creatinine (test code = 2161-8) 48.99 63-166 L [facility] HospitalUrine Protein/Creatinine Kocrw7775-74-27 15:37:00* Test Item Value Reference Range Interpretation Comments Urine Protein/Creatinine Ratio (test code = 20054-1) 0.41 [facility] HospitalUrine Random Total Znivqes1941-81-49 15:37:00* Test Item Value Reference Range Interpretation Comments Urine Random Total Protein (test code = 2888-6) 20.3 1-14 H [facility] HospitalUrine Yyjnaaegrm5586-34-19 15:37:00* Test Item Value Reference Range Interpretation Comments Urine Creatinine (test code = 2161-8) 48.99 63-166 L [facility] HospitalUrine Protein/Creatinine Quhne2811-96-88 15:37:00* Test Item Value Reference Range Interpretation Comments Urine Protein/Creatinine Ratio (test code = 78112-5) 0.41 [facility] HospitalUrine Random Total Clhoneb2567-10-43 15:37:00* Test Item Value Reference Range Interpretation Comments Urine Random Total Protein (test code = 2888-6) 20.3 1-14 H [facility] HospitalUrine Tgdkdrmxfb9038-61-00 15:37:00* Test Item Value Reference Range Interpretation Comments Urine Creatinine (test code = 2161-8) 48.99 63-166 L [facility] Protein/Creatinine Xkvny8183-32-19 15:37:00* Test Item Value Reference Range Interpretation Comments Urine Protein/Creatinine Ratio (test code = 14100-7) 0.41 [facility] HospitalUrine Neajg5903-65-69 14:38:00* Test Item Value Reference Range Interpretation Comments Urine Color (test code = 5778-6) YELLOW YELLOW [facility] HospitalU[facility] Bsobfxq1303-29-70 14:38:00* Test Item Value Reference Range Interpretation Comments Urine Clarity (test code = 14472-2) CLEAR CLEAR [facility] HospitalUrine Specific Moknfsm2386-83-22 14:38:00 * Test Item Value Reference Range Interpretation Comments Urine Specific [place] (test code = 5811-5) 1.010 1.010-1.02 5 [facility] HospitalUrine rS8673-81-82 14:38:00* Test Item Value Reference Range Interpretation Comments Urine pH (test code = 75490-2) 7 5-7 [facility] HospitalU[facility] Leukocyte Romprtjc0228-97-26 14:38:00* Test Item Value Reference Range Interpretation Comments Urine Leukocyte Esterase (test code = 5799-2) NEGATIVE NEGATIVE [facility] HospitalU[facility] Ckjknud3985-18-82 14:38:00* Test Item Value Reference Range Interpretation Comments Urine Nitrite (test code = 22241-1) NEGATIVE NEGATIVE [facility] HospitalUrine Bczodze3623-31-75 14:38:00* Test Item Value Reference Range Interpretation Comments Urine Protein (test code = 5804-0) TRACE NEGATIVE H [facility] HospitalUrine Glucose (UA)2018-12-12 14:38:00* Test Item Value Reference Range Interpretation Comments Urine Glucose (UA) (test code = 2349-9) NEGATIVE NEGATIVE [facility] HospitalUrine Nvtebzr0106-87-20 14:38:00* Test Item Value Reference Range Interpretation Comments Urine Ketones (test code = 40093-6) NEGATIVE NEGATIVE [facility] HospitalU[facility] Tqdtjqykppck2005-85-79 14:38:00* Test Item Value Reference Range Interpretation Comments Urine Urobilinogen (test code = 60358-5) 0.2 0.2-1 [facility] HospitalU[facility] Utuumqdyr4679-02-55 14:38:00* Test Item Value Reference Range Interpretation Comments Urine Bilirubin (test code = 1978-6) NEGATIVE NEGATIVE [facility] Kohlv0506-58-49 14:38:00* Test Item Value Reference Range Interpretation Comments Urine Blood (test code = 50212-3) NEGATIVE NEGATIVE [facility] BEY4730-47-08 14:38:00* Test Item Value Reference Range Interpretation Comments Urine WBC (test code = 5821-4) 0-5 0-5 [facility] HospitalU[facility] FPR9403-03-57 14:38:00* Test Item Value Reference Range Interpretation Comments Urine RBC (test code = 21324-3) 0-5 0-5 [facility] Syhumldx5578-45-14 14:38:00* Test Item Value Reference Range Interpretation Comments Urine Bacteria (test code = 16541-2) NONE NONE [facility] HospitalUrine Epithelial Fsdzd4481-49-10 14:38:00 * Test Item Value Reference Range Interpretation Comments Urine Epithelial Cells (test code = 61446-8) FEW NONE [facility] Transitional Epithelial Cells 2018-12-12 14:38:00* Test Item Value Reference Range Interpretation Comments Urine Transitional Epithelial Cells (test code = 8249-5) FEW NONE [facility] Hyaline Qhfjb8869-82-36 14:38:00* Test Item Value Reference Range Interpretation Comments Urine Hyaline Casts (test code = 55339-6) 6-10 0-1 H [facility] Cblnp0442-87-51 14:38:00* Test Item Value Reference Range Interpretation Comments Urine Color (test code = 5778-6) YELLOW YELLOW [facility] Hqrgibl8999-88-02 14:38:00* Test Item Value Reference Range Interpretation Comments Urine Clarity (test code = 52168-5) CLEAR CLEAR [facility] Specific Yvrgfvb4949-59-22 14:38:00 * Test Item Value Reference Range Interpretation Comments Urine Specific [place] (test code = 5811-5) 1.010 1.010-1.02 5 [facility] [id number] 14:38:00* Test Item Value Reference Range Interpretation Comments Urine pH (test code = 78528-8) 7 5-7 [facility] Leukocyte Fbgirfca2218-57-09 14:38:00* Test Item Value Reference Range Interpretation Comments Urine Leukocyte Esterase (test code = 5799-2) NEGATIVE NEGATIVE [facility] Pesuwle3426-00-02 14:38:00* Test Item Value Reference Range Interpretation Comments Urine Nitrite (test code = 52138-3) NEGATIVE NEGATIVE [facility] Brmlugz6046-66-53 14:38:00* Test Item Value Reference Range Interpretation Comments Urine Protein (test code = 5804-0) TRACE NEGATIVE H [facility] Glucose (UA)2018-12-12 14:38:00* Test Item Value Reference Range Interpretation Comments Urine Glucose (UA) (test code = 2349-9) NEGATIVE NEGATIVE [facility] Javfgad4967-74-64 14:38:00* Test Item Value Reference Range Interpretation Comments Urine Ketones (test code = 81610-5) NEGATIVE NEGATIVE [facility] Pxndasbwbuxl5488-60-59 14:38:00* Test Item Value Reference Range Interpretation Comments Urine Urobilinogen (test code = 29661-8) 0.2 0.2-1 [facility] Azchhufqp3801-48-57 14:38:00* Test Item Value Reference Range Interpretation Comments Urine Bilirubin (test code = 1978-6) NEGATIVE NEGATIVE [facility] Mjicd1781-46-71 14:38:00* Test Item Value Reference Range Interpretation Comments Urine Blood (test code = 83324-7) NEGATIVE NEGATIVE [facility] MQB7866-14-98 14:38:00* Test Item Value Reference Range Interpretation Comments Urine WBC (test code = 5821-4) 0-5 0-5 [facility] DMV3746-80-07 14:38:00* Test Item Value Reference Range Interpretation Comments Urine RBC (test code = 19458-5) 0-5 0-5 [facility] Mvbdgpvz4555-68-41 14:38:00* Test Item Value Reference Range Interpretation Comments Urine Bacteria (test code = 04047-4) NONE NONE [facility] Epithelial Ylwrg8563-88-80 14:38:00 * Test Item Value Reference Range Interpretation Comments Urine Epithelial Cells (test code = 25569-5) FEW NONE [facility] Transitional Epithelial Cells 2018-12-12 14:38:00* Test Item Value Reference Range Interpretation Comments Urine Transitional Epithelial Cells (test code = 8249-5) FEW NONE [facility] Hyaline Btlpe7016-74-97 14:38:00* Test Item Value Reference Range Interpretation Comments Urine Hyaline Casts (test code = 49494-6) 6-10 0-1 H [facility] Niwff2439-98-74 14:38:00* Test Item Value Reference Range Interpretation Comments Urine Color (test code = 5778-6) YELLOW YELLOW [facility] Aqqnhyf9755-14-34 14:38:00* Test Item Value Reference Range Interpretation Comments Urine Clarity (test code = 27911-6) CLEAR CLEAR [facility] Specific Jofsjcw3244-77-09 14:38:00 * Test Item Value Reference Range Interpretation Comments Urine Specific [place] (test code = 5811-5) 1.010 1.010-1.02 5 [facility] oX8702-83-50 14:38:00* Test Item Value Reference Range Interpretation Comments Urine pH (test code = 82926-9) 7 5-7 [facility] Leukocyte Bvlcuduj2451-80-43 14:38:00* Test Item Value Reference Range Interpretation Comments Urine Leukocyte Esterase (test code = 5799-2) NEGATIVE NEGATIVE [facility] Rorfncm1169-19-60 14:38:00* Test Item Value Reference Range Interpretation Comments Urine Nitrite (test code = 75601-8) NEGATIVE NEGATIVE [facility] Inyyewy8143-44-11 14:38:00* Test Item Value Reference Range Interpretation Comments Urine Protein (test code = 5804-0) TRACE NEGATIVE H [facility] Glucose (UA)2018-12-12 14:38:00* Test Item Value Reference Range Interpretation Comments Urine Glucose (UA) (test code = 2349-9) NEGATIVE NEGATIVE [facility] Rwaznsg9152-40-57 14:38:00* Test Item Value Reference Range Interpretation Comments Urine Ketones (test code = 30193-7) NEGATIVE NEGATIVE [facility] Ujtbghleskwc8551-32-69 14:38:00* Test Item Value Reference Range Interpretation Comments Urine Urobilinogen (test code = 90066-1) 0.2 0.2-1 [facility] Ojggcksnu7460-97-39 14:38:00* Test Item Value Reference Range Interpretation Comments Urine Bilirubin (test code = 1978-6) NEGATIVE NEGATIVE [facility] Byzop0513-90-36 14:38:00* Test Item Value Reference Range Interpretation Comments Urine Blood (test code = 83655-5) NEGATIVE NEGATIVE [facility] AJI0791-06-48 14:38:00* Test Item Value Reference Range Interpretation Comments Urine WBC (test code = 5821-4) 0-5 0-5 [facility] ARK5838-25-93 14:38:00* Test Item Value Reference Range Interpretation Comments Urine RBC (test code = 47098-0) 0-5 0-5 [facility] Mlxpqtwr8156-17-19 14:38:00* Test Item Value Reference Range Interpretation Comments Urine Bacteria (test code = 90018-0) NONE NONE [facility] Epithelial Duwei1218-40-58 14:38:00 * Test Item Value Reference Range Interpretation Comments Urine Epithelial Cells (test code = 70505-1) FEW NONE [facility] Transitional Epithelial Cells 2018-12-12 14:38:00* Test Item Value Reference Range Interpretation Comments Urine Transitional Epithelial Cells (test code = 8249-5) FEW NONE [facility] Hyaline Tnwpl3484-74-00 14:38:00* Test Item Value Reference Range Interpretation Comments Urine Hyaline Casts (test code = 30511-3) 6-10 0-1 H [facility] HospitalCreatine Kinase KO0901-24-82 19:07:00* Test Item Value Reference Range Interpretation Comments Creatine Kinase MB (test code = 15597-3) 2.40 0-5.0 [facility] HospitalTroponin [id number] 19:07:00* Test Item Value Reference Range Interpretation Comments Troponin I (test code = UHK3840) 0.033 0-0.300 [facility] HospitalCreatine Kinase [id number] 19:07:00* Test Item Value Reference Range Interpretation Comments Creatine Kinase MB (test code = 93947-0) 2.40 0-5.0 [facility] HospitalTroponin [id number] 19:07:00* Test Item Value Reference Range Interpretation Comments Troponin I (test code = CKB4863) 0.033 0-0.300 [facility] HospitalCreatine Qiqufh7351-60-59 18:59:00* Test Item Value Reference Range Interpretation Comments Creatine Kinase (test code = 2157-6) 59 30-200 [facility] HospitalCreatine Ftpxjs1782-03-56 18:59:00* Test Item Value Reference Range Interpretation Comments Creatine Kinase (test code = 2157-6) 59 30-200 [facility] HospitalArterial Blood sM5672-72-71 05:29:00* Test Item Value Reference Range Interpretation Comments Arterial Blood pH (test code = 2744-1) 7.37 7.31-7.41 [facility] HospitalArterial Blood Partial Pressure CO2 2018-12-11 05:29:00* Test Item Value Reference Range Interpretation Comments Arterial Blood Partial Pressure CO2 (test code = 2018-8) 60 41-51 H [facility] HospitalArterial Blood Partial Pressure O2 2018-12-11 05:29:00* Test Item Value Reference Range Interpretation Comments Arterial Blood Partial Pressure O2 (test code = 2018-8) 74 80-105 L [facility] Blood [id number] 05:29:00* Test Item Value Reference Range Interpretation Comments Arterial Blood HCO3 (test code = 1960-4) 34 23-28 H [facility] HospitalAr[facility]ial Blood Base Fiucfd7513-04-17 05:29:00* Test Item Value Reference Range Interpretation Comments Arterial Blood Base Excess (test code = 1925-7) 10.0 -2-3 H [facility] HospitalAr[facility]ial Blood Oxygen Saturation 2018-12-11 05:29:00* Test Item Value Reference Range Interpretation Comments Arterial Blood Oxygen Saturation (test code = 2708-6) 94.0 95-98 L [facility] HospitalFiO22019-02-15 05:29:00* Test Item Value Reference Range Interpretation Comments FiO2 (test code = FiO2) 40 PT. ON BIPAP R12 40 [facility] kJ6203-59-07 05:29:00* Test Item Value Reference Range Interpretation Comments Arterial Blood pH (test code = 2744-1) 7.37 7.31-7.41 [facility] HospitalAr[facility] Blood Partial Pressure CO2 2018-12-11 05:29:00* Test Item Value Reference Range Interpretation Comments Arterial Blood Partial Pressure CO2 (test code = 2019-8) 60 41-51 H [facility] HospitalAr[facility]ial Blood Partial Pressure O2 2018-12-11 05:29:00* Test Item Value Reference Range Interpretation Comments Arterial Blood Partial Pressure O2 (test code = 2018-8) 74 80-105 [facility] SBG52311-93-38 05:29:00* Test Item Value Reference Range Interpretation Comments Arterial Blood HCO3 (test code = 1960-4) 34 23-28 H [facility] HospitalAr[facility]ial Blood Base Dgdunh8820-62-77 05:29:00* Test Item Value Reference Range Interpretation Comments Arterial Blood Base Excess (test code = 1925-7) 10.0 -2-3 H [facility] HospitalAr[facility] Blood Oxygen Saturation 2018-12-11 05:29:00* Test Item Value Reference Range Interpretation Comments Arterial Blood Oxygen Saturation (test code = 2708-6) 94.0 95-98 L [facility] HospitalFiO22019-02-15 05:29:00* Test Item Value Reference Range Interpretation Comments FiO2 (test code = FiO2) 40 PT. ON BIPAP 2 40 [facility] [id number] 05:29:00* Test Item Value Reference Range Interpretation Comments Arterial Blood pH (test code = 2744-1) 7.37 7.31-7.41 [facility] HospitalAr[facility] Blood Partial Pressure CO2 2018-12-11 05:29:00* Test Item Value Reference Range Interpretation Comments Arterial Blood Partial Pressure CO2 (test code = 2018-8) 60 41-51 H [facility] HospitalArterial Blood Partial Pressure O2 2018-12-11 05:29:00* Test Item Value Reference Range Interpretation Comments Arterial Blood Partial Pressure O2 (test code = 2018-8) 74 80-105 [facility] JIV14425-70-37 05:29:00* Test Item Value Reference Range Interpretation Comments Arterial Blood HCO3 (test code = 1960-4) 34 23-28 H [facility] HospitalAr[facility] Blood Base Pdlumu0552-12-20 05:29:00* Test Item Value Reference Range Interpretation Comments Arterial Blood Base Excess (test code = 1925-7) 10.0 -2-3 H [facility] HospitalAr[facility] Blood Oxygen Saturation 2018-12-11 05:29:00* Test Item Value Reference Range Interpretation Comments Arterial Blood Oxygen Saturation (test code = 2708-6) 94.0 95-98 L [facility] HospitalFiO22019-02-15 05:29:00* Test Item Value Reference Range Interpretation Comments FiO2 (test code = FiO2) 40 PT. ON BIPAP 40 REPORTED TO ER DOCTORLegent Orthopedic HospitalCHEST SINGLE (PORTABLE)2018-12-11 03:39:00 [facility] [address] [place] [address] Patient Name: STEVE BENEDICT MR #: [id number] : 1945 Age/Sex: 73/M Req #: [id number] Adm Physician: Ordered by: RENAE SOLARES MD Report #: [id number] Location: ER Room/Bed: Procedure: [id number] D X/CHEST SINGLE (PORTABLE) Exam Date: 12/11/18 [...] COPY TO: RENAE SOLARES MD Lactic Acid Ztnvv9158-54-63 03:02:00* Test Item Value Reference Range Interpretation Comments Lactic Acid Level (test code = Lactic Acid Level) 15.9 4.5- 19.8 [facility] HospitalLactic Acid Ldeid0201-89-26 03:02:00* Test Item Value Reference Range Interpretation Comments Lactic Acid Level (test code = Lactic Acid Level) 15.9 4.5- 19.8 [facility] HospitalProthrombin Chsj4800-94-39 03:01:00* Test Item Value Reference Range Interpretation Comments Prothrombin Time (test code = 5902-2) 18.4 11.9-14.5 H [facility] HospitalProthromb Time International Ratio 2018-12-11 03:01:00* Test Item Value Reference Range Interpretation Comments Prothromb Time International Ratio (test code = 6301-6) 1.41 Oral Anticoagulant Therapy INR Values:1. Low Intensity Therapy 1.5 - 2.02 . Moderate Intensity Therapy 2.0 - 3.03. High Intensity Therapy(1) 2.5 - 3. 54. High Intensity Therapy(2) 3.0 - 4.05. Panic Value INR > 5.0 [facility] HospitalActivated Partial Thromboplast Time 2018-12-11 03:01:00* Test Item Value Reference Range Interpretation Comments Activated Partial Thromboplast Time (test code = 38417-4) 38.4 23.8-35.5 H [facility] HospitalProthrombin Crmb1870-83-26 03:01:00* Test Item Value Reference Range Interpretation Comments Prothrombin Time (test code = 5902-2) 18.4 11.9-14.5 H [facility] HospitalProthromb Time International Ratio 2018-12-11 03:01:00* Test Item Value Reference Range Interpretation Comments Prothromb Time International Ratio (test code = 6301-6) 1.41 Oral Anticoagulant Therapy INR Values:1. Low Intensity Therapy 1.5 - 2.02 . Moderate Intensity Therapy 2.0 - 3.03. High Intensity Therapy(1) 2.5 - 3. 54. High Intensity Therapy(2) 3.0 - 4.05. Panic Value INR > 5.0 [facility] HospitalActivated Partial Thromboplast Time 2018-12-11 03:01:00* Test Item Value Reference Range Interpretation Comments Activated Partial Thromboplast Time (test code = 92312-9) 38.4 23.8-35.5 H [facility] HospitalBedside Snjpnxx0969-70-34 12:16:00* Test Item Value Reference Range Interpretation Comments Bedside Glucose (test code = 26277-4) 136 70-120 H Meter ID: [id number] [facility] Hospitalodium Level 2018-11-07 05:04:00* Test Item Value Reference Range Interpretation Comments Sodium Level (test code = 2951-2) 141 136-145 [facility] HospitalPotassium Bzien7063-18-18 05:04:00* Test Item Value Reference Range Interpretation Comments Potassium Level (test code = 2823-3) 4.3 3.5-5.1 [facility] HospitalChloride Kdvzr8435-87-72 05:04:00* Test Item Value Reference Range Interpretation Comments Chloride Level (test code = 2075-0) 98 98-107 [facility] HospitalCarbon Dioxide Ualgk1110-40-53 05:04:00* Test Item Value Reference Range Interpretation Comments Carbon Dioxide Level (test code = 2028-9) 34 22-29 H [facility] HospitalAnion Bio0856-19-29 05:04:00* Test Item Value Reference Range Interpretation Comments Anion Gap (test code = 79411-8) 13.3 8-16 [facility] HospitalBlood Urea Wvgbgppd9177-99-96 05:04:00* Test Item Value Reference Range Interpretation Comments Blood Urea Nitrogen (test code = 3094-0) 31 7-26 H [facility] HospitalCreatinine2019-01-12 05:04:00* Test Item Value Reference Range Interpretation Comments Creatinine (test code = 2160-0) 1.67 0.72-1.25 H [facility] HospitalBUN/Creatinine Hxbrb4045-52-22 05:04:00* Test Item Value Reference Range Interpretation Comments BUN/Creatinine Ratio (test code = 3097-3) 19 6-25 [facility] HospitalEstimat Glomerular Filtration Rate 2018-11-07 05:04:00* Test Item Value Reference Range Interpretation Comments Estimat Glomerular Filtration Rate (test code = 271849051) 40 >60 L Ranges were taken from the National Kidney Disease Education Program and the Replaced by [facility] literature.Reference ranges:60 or greater: Tujwwo85-92 ( for 3 consecutive months): Chronic kidney disease 15 or less: Kidney failureLegent Orthopedic HospitalGlucose Jjqeo6059-66-62 05:04:00* Test Item Value Reference Range Interpretation Comments Glucose Level (test code = TLL8092) 114 74-118 [facility] HospitalCalcium Tyora4109-93-90 05:04:00* Test Item Value Reference Range Interpretation Comments Calcium Level (test code = 04480-1) 9.2 8.4-10.2 [facility] HospitalWhite Blood Kycts6019-47-81 04:35:00* Test Item Value Reference Range Interpretation Comments White Blood Count (test code = 6690-2) 10.57 4.8-10.8 [facility] HospitalRed Blood Abfmv1269-03-76 04:35:00* Test Item Value Reference Range Interpretation Comments Red Blood Count (test code = 789-8) 6.36 4.3-5.7 H [facility] HospitalHemoglobin2019-01-12 04:35:00* Test Item Value Reference Range Interpretation Comments Hemoglobin (test code = 38094-7) 15.7 14.0-18.0 [facility] HospitalHematocrit2019-01-12 04:35:00* Test Item Value Reference Range Interpretation Comments Hematocrit (test code = 4544-3) 53.4 38.2-49.6 H [facility] HospitalMean Corpuscular Drhcoe4543-83-41 04:35:00* Test Item Value Reference Range Interpretation Comments Mean Corpuscular Volume (test code = 787-2) 84.0 81-99 [facility] HospitalMean Corpuscular Omstaqvbbc1473-91-38 04:35:00* Test Item Value Reference Range Interpretation Comments Mean Corpuscular Hemoglobin (test code = 785-6) 24.7 28-32 L [facility] HospitalMean Corpuscular Hemoglobin Concent 2018-11-07 04:35:00* Test Item Value Reference Range Interpretation Comments Mean Corpuscular Hemoglobin Concent (test code = 786-4) 29.4 31-35 L [facility] HospitalRed Cell Distribution Fljwm3564-96-70 04:35:00* Test Item Value Reference Range Interpretation Comments Red Cell Distribution Width (test code = 25881-4) 20.8 11.7 -14.4 H [facility] HospitalPlatelet Pksqy7507-63-08 04:35:00* Test Item Value Reference Range Interpretation Comments Platelet Count (test code = 777-3) 202 140-360 [facility] HospitalNeutrophils (%) (Auto)2018-11-07 04:35:00 * Test Item Value Reference Range Interpretation Comments Neutrophils (%) (Auto) (test code = 54215-1) 72.4 38.7-80.0 [facility] HospitalLymphocytes (%) (Auto)2018-11-07 04:35:00 * Test Item Value Reference Range Interpretation Comments Lymphocytes (%) (Auto) (test code = 736-9) 14.7 18.0-39.1 L [facility] HospitalMonocytes (%) (Auto)2018-11-07 04:35:00* Test Item Value Reference Range Interpretation Comments Monocytes (%) (Auto) (test code = 5905-5) 11.4 4.4-11.3 H [facility] HospitalEosinophils (%) (Auto)2018-11-07 04:35:00 * Test Item Value Reference Range Interpretation Comments Eosinophils (%) (Auto) (test code = 713-8) 0.5 0.0-6.0 [facility] HospitalBasophils (%) (Auto)2018-11-07 04:35:00* Test Item Value Reference Range Interpretation Comments Basophils (%) (Auto) (test code = 706-2) 0.6 0.0-1.0 [facility] HospitalIM GRANULOCYTES %2018-11-07 04:35:00* Test Item Value Reference Range Interpretation Comments IM GRANULOCYTES % (test code = IM GRANULOCYTES %) 0.4 0.0- 1.0 [facility] HospitalNeutrophils # (Auto)2018-11-07 04:35:00* Test Item Value Reference Range Interpretation Comments Neutrophils # (Auto) (test code = 751-8) 7.7 2.1-6.9 H [facility] HospitalLymphocytes # (Auto)2018-11-07 04:35:00* Test Item Value Reference Range Interpretation Comments Lymphocytes # (Auto) (test code = 78583-0) 1.6 1.0-3.2 [facility] HospitalMonocytes # (Auto)2018-11-07 04:35:00* Test Item Value Reference Range Interpretation Comments Monocytes # (Auto) (test code = 742-7) 1.2 0.2-0.8 H [facility] HospitalEosinophils # (Auto)2018-11-07 04:35:00* Test Item Value Reference Range Interpretation Comments Eosinophils # (Auto) (test code = 711-2) 0.1 0.0-0.4 [facility] HospitalBasophils # (Auto)2018-11-07 04:35:00* Test Item Value Reference Range Interpretation Comments Basophils # (Auto) (test code = 704-7) 0.1 0.0-0.1 [facility] HospitalAbsolute Immature Granulocyte (auto 2018-11-07 04:35:00* Test Item Value Reference Range Interpretation Comments Absolute Immature Granulocyte (auto (bharat t code = Absolute Immature Granulocyte (auto) 0.04 0-0.1 [facility] HospitalTotal Ckcdqcptx1752-85-98 12:54:00* Test Item Value Reference Range Interpretation Comments Total Bilirubin (test code = 1975-2) 0.5 0.2-1.2 [facility] HospitalAspartate Amino Transf (AST/SGOT) 2018-11-05 12:54:00* Test Item Value Reference Range Interpretation Comments Aspartate Amino Transf (AST/SGOT) (test code = Aspartate Amino Transf (AST/SGOT)) 19 5-34 [facility] HospitalAlanine Aminotransferase (ALT/SGPT) 2018-11-05 12:54:00* Test Item Value Reference Range Interpretation Comments Alanine Aminotransferase (ALT/SGPT) (test code = 1742-6) 20 0-55 [facility] HospitalTotal Wsijkpk0988-23-82 12:54:00* Test Item Value Reference Range Interpretation Comments Total Protein (test code = 2885-2) 6.8 6.5-8.1 [facility] HospitalAlbumin2019-01-10 12:54:00* Test Item Value Reference Range Interpretation Comments Albumin (test code = 1751-7) 4.0 3.5-5.0 [facility] HospitalGlobulin2019-01-10 12:54:00* Test Item Value Reference Range Interpretation Comments Globulin (test code = 34357-9) 2.8 2.3-3.5 [facility] HospitalAlbumin/Globulin Cmvfj1267-21-68 12:54:00 * Test Item Value Reference Range Interpretation Comments Albumin/Globulin Ratio (test code = 1759-0) 1.4 0.8-2.0 [facility] HospitalAlkaline Jpnxifbhtzj1054-15-26 12:54:00* Test Item Value Reference Range Interpretation Comments Alkaline Phosphatase (test code = 6768-6) 87 40-150 [facility] HospitalProthrombin Mldn2943-17-77 12:42:00* Test Item Value Reference Range Interpretation Comments Prothrombin Time (test code = 5902-2) 13.7 11.9-14.5 [facility] HospitalProthromb Time International Ratio 2018-11-05 12:42:00* Test Item Value Reference Range Interpretation Comments Prothromb Time International Ratio (test code = 6301-6) 0.96 Oral Anticoagulant Therapy INR Values:1. Low Intensity Therapy 1.5 - 2.02 . Moderate Intensity Therapy 2.0 - 3.03. High Intensity Therapy(1) 2.5 - 3. 54. High Intensity Therapy(2) 3.0 - 4.05. Panic Value INR > 5.0 [facility] HospitalBlood Tyllfzh2002-88-93 18:31:00* Test Item Value Reference Range Interpretation Comments Blood Culture (test code = 90186705) NO GROWTH AFTER 5 DAYS, FINAL REPORT [facility] Syyqywk1845-96-21 13:27:00* Test Item Value Reference Range Interpretation Comments Urine Culture (test code = 630-4) Organism: ESCHERICHIA COLI-ESBL [facility] Wgezaar2497-06-98 13:27:00* Test Item Value Reference Range Interpretation Comments Urine Culture (test code = 630-4) Organism: ESCHERICHIA COLI-ESBL [facility] HospitalUrine Rimpwbk6133-97-59 13:27:00* Test Item Value Reference Range Interpretation Comments Urine Culture (test code = 630-4) Organism: ESCHERICHIA COLI-ESBL [facility] HospitalUrine Czcbbus4066-76-41 13:27:00* Test Item Value Reference Range Interpretation Comments Urine Culture (test code = 630-4) Organism: ESCHERICHIA COLI-ESBL [facility] Hospitalodium Ivaxy9347-68-10 09:35:00* Test Item Value Reference Range Interpretation Comments Sodium Level (test code = 2951-2) 138 136-145 [facility] HospitalPotassium Gwxwl4025-31-74 09:35:00* Test Item Value Reference Range Interpretation Comments Potassium Level (test code = 2823-3) 3.8 3.5-5.1 [facility] HospitalChloride Jccdt0516-81-70 09:35:00* Test Item Value Reference Range Interpretation Comments Chloride Level (test code = 2075-0) 93 98-107 L [facility] HospitalCarbon Dioxide Ropmz0867-97-26 09:35:00* Test Item Value Reference Range Interpretation Comments Carbon Dioxide Level (test code = 2028-9) 36 22-29 H [facility] HospitalAnion Hjc2707-24-30 09:35:00* Test Item Value Reference Range Interpretation Comments Anion Gap (test code = 64275-3) 12.8 8-16 [facility] HospitalBlood Urea Xoxznwzy0402-47-20 09:35:00* Test Item Value Reference Range Interpretation Comments Blood Urea Nitrogen (test code = 3094-0) 24 7-26 [facility] HospitalCreatinine2018-11-21 09:35:00* Test Item Value Reference Range Interpretation Comments Creatinine (test code = 2160-0) 1.60 0.72-1.25 H [facility] HospitalBUN/Creatinine Gainj2696-38-99 09:35:00* Test Item Value Reference Range Interpretation Comments BUN/Creatinine Ratio (test code = 3097-3) 15 6-25 [facility] HospitalEstimat Glomerular Filtration Rate 2018-09-16 09:35:00* Test Item Value Reference Range Interpretation Comments Estimat Glomerular Filtration Rate (test code = 095317553) 42 >60 L Ranges were taken from the National Kidney Disease Education Program and the [facility] [employer] [employer] literature.Reference ranges:60 or greater: Cissjv84-73 ( for 3 consecutive months): Chronic kidney disease 15 or less: Kidney failureLegent Orthopedic HospitalGlucose Vetbg3467-75-29 09:35:00* Test Item Value Reference Range Interpretation Comments Glucose Level (test code = YKY3343) 151 74-118 H [facility] HospitalCalcium Lrjdp4372-28-23 09:35:00* Test Item Value Reference Range Interpretation Comments Calcium Level (test code = 78541-1) 9.6 8.4-10.2 [facility] HospitalBedside Wpdbrpl4716-52-76 08:21:00* Test Item Value Reference Range Interpretation Comments Bedside Glucose (test code = 95975-4) 95 70-120 Meter ID: [id number] 2018-09-16 03:38:00* Test Item Value Reference Range Interpretation Comments Magnesium Level (test code = 92665-3) 2.3 1.3-2.1 H [facility]2018-11-21 03:38:00* Test Item Value Reference Range Interpretation Comments Magnesium Level (test code = 60080-5) 2.3 1.3-2.1 H [facility]2018-11-21 03:38:00* Test Item Value Reference Range Interpretation Comments Magnesium Level (test code = 94191-4) 2.3 1.3-2.1 H [facility]2018-11-21 03:38:00* Test Item Value Reference Range Interpretation Comments Magnesium Level (test code = 45256-0) 2.3 1.3-2.1 H [facility]2018-11-21 03:38:00* Test Item Value Reference Range Interpretation Comments Magnesium Level (test code = 08146-9) 2.3 1.3-2.1 H [facility] HospitalWhite Blood Akuec3861-91-65 03:22:00* Test Item Value Reference Range Interpretation Comments White Blood Count (test code = 6690-2) 7.70 4.8-10.8 [facility] HospitalRed Blood Nsgeh4547-47-11 03:22:00* Test Item Value Reference Range Interpretation Comments Red Blood Count (test code = 789-8) 6.27 4.3-5.7 H [facility] HospitalHemoglobin2018-11-21 03:22:00* Test Item Value Reference Range Interpretation Comments Hemoglobin (test code = 41522-4) 14.9 14.0-18.0 [facility] HospitalHematocrit2018-11-21 03:22:00* Test Item Value Reference Range Interpretation Comments Hematocrit (test code = 4544-3) 52.0 38.2-49.6 H [facility] HospitalMean Corpuscular Aaanrn8101-34-77 03:22:00* Test Item Value Reference Range Interpretation Comments Mean Corpuscular Volume (test code = 787-2) 82.9 81-99 [facility] HospitalMean Corpuscular Ugjfpmozwn1960-84-02 03:22:00* Test Item Value Reference Range Interpretation Comments Mean Corpuscular Hemoglobin (test code = 785-6) 23.8 28-32 L [facility] HospitalMean Corpuscular Hemoglobin Concent 2018-09-16 03:22:00* Test Item Value Reference Range Interpretation Comments Mean Corpuscular Hemoglobin Concent (test code = 786-4) 28.7 31-35 L [facility] HospitalRed Cell Distribution Ywgtk7477-11-54 03:22:00* Test Item Value Reference Range Interpretation Comments Red Cell Distribution Width (test code = 87766-4) 18.5 11.7 -14.4 H [facility] HospitalPlatelet Qikyz6842-78-95 03:22:00* Test Item Value Reference Range Interpretation Comments Platelet Count (test code = 777-3) 254 140-360 [facility] HospitalNeutrophils (%) (Auto)2018-09-16 03:22:00 * Test Item Value Reference Range Interpretation Comments Neutrophils (%) (Auto) (test code = 85696-3) 66.2 38.7-80.0 [facility] HospitalLymphocytes (%) (Auto)2018-09-16 03:22:00 * Test Item Value Reference Range Interpretation Comments Lymphocytes (%) (Auto) (test code = 736-9) 17.0 18.0-39.1 L [facility] HospitalMonocytes (%) (Auto)2018-09-16 03:22:00* Test Item Value Reference Range Interpretation Comments Monocytes (%) (Auto) (test code = 5905-5) 12.2 4.4-11.3 H [facility] HospitalEosinophils (%) (Auto)2018-09-16 03:22:00 * Test Item Value Reference Range Interpretation Comments Eosinophils (%) (Auto) (test code = 713-8) 3.2 0.0-6.0 [facility] HospitalBasophils (%) (Auto)2018-09-16 03:22:00* Test Item Value Reference Range Interpretation Comments Basophils (%) (Auto) (test code = 706-2) 0.9 0.0-1.0 [facility] HospitalIM GRANULOCYTES %2018-09-16 03:22:00* Test Item Value Reference Range Interpretation Comments IM GRANULOCYTES % (test code = IM GRANULOCYTES %) 0.5 0.0- 1.0 [facility] HospitalNeutrophils # (Auto)2018-09-16 03:22:00* Test Item Value Reference Range Interpretation Comments Neutrophils # (Auto) (test code = 751-8) 5.1 2.1-6.9 [facility] HospitalLymphocytes # (Auto)2018-09-16 03:22:00* Test Item Value Reference Range Interpretation Comments Lymphocytes # (Auto) (test code = 06412-1) 1.3 1.0-3.2 [facility] HospitalMonocytes # (Auto)2018-09-16 03:22:00* Test Item Value Reference Range Interpretation Comments Monocytes # (Auto) (test code = 742-7) 0.9 0.2-0.8 H [facility] HospitalEosinophils # (Auto)2018-09-16 03:22:00* Test Item Value Reference Range Interpretation Comments Eosinophils # (Auto) (test code = 711-2) 0.3 0.0-0.4 [facility] HospitalBasophils # (Auto)2018-09-16 03:22:00* Test Item Value Reference Range Interpretation Comments Basophils # (Auto) (test code = 704-7) 0.1 0.0-0.1 [facility] HospitalAbsolute Immature Granulocyte (auto 2018-09-16 03:22:00* Test Item Value Reference Range Interpretation Comments Absolute Immature Granulocyte (auto (bharat t code = Absolute Immature Granulocyte (auto) 0.04 0-0.1 [facility] HospitalBlood Syckoyl7996-27-54 18:32:00* Test Item Value Reference Range Interpretation Comments Blood Culture (test code = 55855081) NO GROWTH AFTER 48 HOURS [facility] HospitalProthrombin Wbvb9208-32-49 16:25:00* Test Item Value Reference Range Interpretation Comments Prothrombin Time (test code = 5902-2) 21.4 11.9-14.5 H [facility] HospitalProthromb Time International Ratio 2018-09-15 16:25:00* Test Item Value Reference Range Interpretation Comments Prothromb Time International Ratio (test code = 6301-6) 1.71 Oral Anticoagulant Therapy INR Values:1. Low Intensity Therapy 1.5 - 2.02 . Moderate Intensity Therapy 2.0 - 3.03. High Intensity Therapy(1) 2.5 - 3. 54. High Intensity Therapy(2) 3.0 - 4.05. Panic Value INR > 5.0 [facility] HospitalPlatelet Rrdtuhlf1820-33-83 09:15:00* Test Item Value Reference Range Interpretation Comments Platelet Estimate (test code = 59162-6) ADEQUATE [facility] HospitalLarge Fsmyorekc3648-42-24 09:15:00* Test Item Value Reference Range Interpretation Comments Large Platelets (test code = 5908-9) FEW [facility] HospitalPlatelet Morphology Vxjyhtn4312-71-58 09:15:00* Test Item Value Reference Range Interpretation Comments Platelet Morphology Comment (test code = 01566-6) NORMAL [facility] HospitalHypochromasia2018-11-20 09:15:00* Test Item Value Reference Range Interpretation Comments Hypochromasia (test code = 728-6) SLIGHT [facility] HospitalOvalocytes2018-11-20 09:15:00* Test Item Value Reference Range Interpretation Comments Ovalocytes (test code = 774-0) FEW [facility] HospitalRed Cell Morphology Hwmfdgw9360-11-94 09:15:00* Test Item Value Reference Range Interpretation Comments Red Cell Morphology Comment (test code = 6742-1) NORMAL [facility] HospitalPlatelet Rwaidflp3408-12-97 09:15:00* Test Item Value Reference Range Interpretation Comments Platelet Estimate (test code = 42392-5) ADEQUATE [facility] Qgyuwjrbk3993-96-07 09:15:00* Test Item Value Reference Range Interpretation Comments Large Platelets (test code = 5908-9) FEW [facility] HospitalPlatelet Morphology Svatwyf5268-65-91 09:15:00* Test Item Value Reference Range Interpretation Comments Platelet Morphology Comment (test code = 69900-5) NORMAL [facility] HospitalHypochromasia2018-11-20 09:15:00* Test Item Value Reference Range Interpretation Comments Hypochromasia (test code = 728-6) SLIGHT [facility] HospitalOvalocytes2018-11-20 09:15:00* Test Item Value Reference Range Interpretation Comments Ovalocytes (test code = 774-0) FEW [facility] HospitalRed Cell Morphology Rhlinbq2099-18-12 09:15:00* Test Item Value Reference Range Interpretation Comments Red Cell Morphology Comment (test code = 6742-1) NORMAL [facility] HospitalPlatelet Ojpnyutq4759-69-69 09:15:00* Test Item Value Reference Range Interpretation Comments Platelet Estimate (test code = 05317-2) ADEQUATE [facility]Last[facility] Zewmluxyv1241-44-24 09:15:00* Test Item Value Reference Range Interpretation Comments Large Platelets (test code = 5908-9) FEW [facility] HospitalPlatelet Morphology Dmzqsfr6688-67-95 09:15:00* Test Item Value Reference Range Interpretation Comments Platelet Morphology Comment (test code = 55563-4) NORMAL [facility] HospitalHypochromasia2018-11-20 09:15:00* Test Item Value Reference Range Interpretation Comments Hypochromasia (test code = 728-6) SLIGHT [facility] HospitalOvalocytes2018-11-20 09:15:00* Test Item Value Reference Range Interpretation Comments Ovalocytes (test code = 774-0) FEW [facility] HospitalRed Cell Morphology Kibauek1280-11-27 09:15:00* Test Item Value Reference Range Interpretation Comments Red Cell Morphology Comment (test code = 6742-1) NORMAL [facility] HospitalPlatelet Uwbejeck2250-40-23 09:15:00* Test Item Value Reference Range Interpretation Comments Platelet Estimate (test code = 29680-2) ADEQUATE [facility]Last[facility] Hjvmawtzs3678-16-71 09:15:00* Test Item Value Reference Range Interpretation Comments Large Platelets (test code = 5908-9) FEW [facility] HospitalPlatelet Morphology Tvouycq6275-76-67 09:15:00* Test Item Value Reference Range Interpretation Comments Platelet Morphology Comment (test code = 06817-9) NORMAL [facility] HospitalHypochromasia2018-11-20 09:15:00* Test Item Value Reference Range Interpretation Comments Hypochromasia (test code = 728-6) SLIGHT [facility] HospitalOvalocytes2018-11-20 09:15:00* Test Item Value Reference Range Interpretation Comments Ovalocytes (test code = 774-0) FEW [facility] HospitalRed Cell Morphology Mkcifoa5738-15-50 09:15:00* Test Item Value Reference Range Interpretation Comments Red Cell Morphology Comment (test code = 6742-1) NORMAL [facility] HospitalPlatelet Bgrqopky4953-02-14 09:15:00* Test Item Value Reference Range Interpretation Comments Platelet Estimate (test code = 09498-2) ADEQUATE [facility]Last[facility] Rxhqbegjc2107-94-07 09:15:00* Test Item Value Reference Range Interpretation Comments Large Platelets (test code = 5908-9) FEW [facility] HospitalPlatelet Morphology Cxugncg7927-12-62 09:15:00* Test Item Value Reference Range Interpretation Comments Platelet Morphology Comment (test code = 04757-6) NORMAL [facility] HospitalHypochromasia2018-11-20 09:15:00* Test Item Value Reference Range Interpretation Comments Hypochromasia (test code = 728-6) SLIGHT [facility] HospitalOvalocytes2018-11-20 09:15:00* Test Item Value Reference Range Interpretation Comments Ovalocytes (test code = 774-0) FEW [facility] HospitalRed Cell Morphology Hjrwhus1648-61-16 09:15:00* Test Item Value Reference Range Interpretation Comments Red Cell Morphology Comment (test code = 6742-1) NORMAL [facility] Omtxbwxel5866-80-75 09:15:00* Test Item Value Reference Range Interpretation Comments Large Platelets (test code = 5908-9) [facility] 09:15:00* Test Item Value Reference Range Interpretation Comments Hypochromasia (test code = 728-6) SLIGHT [facility] HospitalOvalocytes2018-11-20 09:15:00* Test Item Value Reference Range Interpretation Comments Ovalocytes (test code = 774-0) FEW [facility] Zgprkxtxr5126-42-07 09:15:00* Test Item Value Reference Range Interpretation Comments Large Platelets (test code = 5908-9) [facility]2018-11-20 09:15:00* Test Item Value Reference Range Interpretation Comments Hypochromasia (test code = 728-6) SLIGHT [facility] HospitalOvalocytes2018-11-20 09:15:00* Test Item Value Reference Range Interpretation Comments Ovalocytes (test code = 774-0) FEW [facility] Ivhtirwfn3400-45-62 09:15:00* Test Item Value Reference Range Interpretation Comments Large Platelets (test code = 5908-9) [facility]asia2018-[facility]-20 09:15:00* Test Item Value Reference Range Interpretation Comments Hypochromasia (test code = 728-6) SLIGHT [facility] HospitalOvalocytes2018-11-20 09:15:00* Test Item Value Reference Range Interpretation Comments Ovalocytes (test code = 774-0) FEW [facility] Qtvclxgtr0770-21-27 09:15:00* Test Item Value Reference Range Interpretation Comments Large Platelets (test code = 5908-9) [facility]W [facility]asia2018-11-20 09:15:00* Test Item Value Reference Range Interpretation Comments Hypochromasia (test code = 728-6) SLIGHT [facility] HospitalOvalocytes2018-11-20 09:15:00* Test Item Value Reference Range Interpretation Comments Ovalocytes (test code = 774-0) FEW [facility] HospitalLarge Fffxrfnwg5911-00-77 09:15:00* Test Item Value Reference Range Interpretation Comments Large Platelets (test code = 5908-9) FEW [facility] HospitalHypochromasia2018-11-20 09:15:00* Test Item Value Reference Range Interpretation Comments Hypochromasia (test code = 728-6) SLIGHT [facility] HospitalOvalocytes2018-11-20 09:15:00* Test Item Value Reference Range Interpretation Comments Ovalocytes (test code = 774-0) FEW [facility] HospitalUrine Lrmtgbr7697-47-79 07:51:00* Test Item Value Reference Range Interpretation Comments Urine Culture (test code = 630-4) Organism: ESCHERICHIA COLI-ESBL [facility] HospitalB-Type Natriuretic Lkbqyrp3302-09-58 07:47:00* Test Item Value Reference Range Interpretation Comments B-Type Natriuretic Peptide (test code = 18728-1) 157.9 0-100 H [facility] HospitalB-Type Natriuretic Jkxicig6266-51-02 07:47:00* Test Item Value Reference Range Interpretation Comments B-Type Natriuretic Peptide (test code = 18187-8) 157.9 0-100 H [facility] HospitalThyroid Stimulating Hormone (TSH) 2018-09-15 06:12:00* Test Item Value Reference Range Interpretation Comments Thyroid Stimulating Hormone (TSH) (test code = 94577-9) 1.609 0.350-4.940 [facility] HospitalThyroid Stimulating Hormone (TSH) 2018-09-15 06:12:00* Test Item Value Reference Range Interpretation Comments Thyroid Stimulating Hormone (TSH) (test code = 77737-1) 1.609 0.350-4.940 [facility] HospitalThyroid Stimulating Hormone (TSH) 2018-09-15 06:12:00* Test Item Value Reference Range Interpretation Comments Thyroid Stimulating Hormone (TSH) (test code = 24171-4) 1.609 0.350-4.940 [facility] HospitalThyroid Stimulating Hormone (TSH) 2018-09-15 06:12:00* Test Item Value Reference Range Interpretation Comments Thyroid Stimulating Hormone (TSH) (test code = 78187-3) 1.609 0.350-4.940 [facility] HospitalThyroid Stimulating Hormone (TSH) 2018-09-15 06:12:00* Test Item Value Reference Range Interpretation Comments Thyroid Stimulating Hormone (TSH) (test code = 82485-3) 1.609 0.350-4.940 [facility] HospitalCreatine Kinase IR1630-10-65 14:14:00* Test Item Value Reference Range Interpretation Comments Creatine Kinase MB (test code = 67443-1) 2.60 0-5.0 [facility] HospitalTroponin R3765-25-05 14:14:00* Test Item Value Reference Range Interpretation Comments Troponin I (test code = TKV8901) 0.009 0-0.300 [facility] HospitalCreatine Kinase XM5119-08-24 14:14:00* Test Item Value Reference Range Interpretation Comments Creatine Kinase MB (test code = 04419-8) 2.60 0-5.0 [facility] I[facility]75 14:14:00* Test Item Value Reference Range Interpretation Comments Troponin I (test code = USR5515) 0.009 0-0.300 [facility] HospitalCreatine Lwxzjp1586-26-31 14:08:00* Test Item Value Reference Range Interpretation Comments Creatine Kinase (test code = 2157-6) 74 30-200 [facility] HospitalCreatine Bgglah5747-37-97 14:08:00* Test Item Value Reference Range Interpretation Comments Creatine Kinase (test code = 2157-6) 74 30-200 [facility] HospitalCHEST SINGLE (PORTABLE)2018-09-14 06:27:00 [facility] [address] [place], [place] [id number] Patient Name: STEVE BENEDICT MR #: [id number] : 1945 Age/Sex: 73/M Req #: [id number] Adm Physician: ROSALIE SHORT MD Ordered by: IBAN RAMOS MD Report #: [id number] Location: MED/SURG Room/Bed: [facility] Procedure: [id number] DX /CHEST SINGLE (PORTABLE) Exam Date: 09/14/18 [...] COPY TO: IBAN FRASER MD CHEST 2 UYPED5984-88-70 19:32:[address] [address] Patient Name: STEVE BENEDICT MR #: [id number] : 1945 Age/Sex: 73/M Req #: [id number] Adm Physician: Ordered by: JAIR RESENDEZ NP Report #: [id number] Location: ER Room/Bed: Procedure: [id number] DX/CHEST 2 VIEWS Exam Date: Exam Time: [...] ERAN on 09/13/181933 COPY TO: JAIR RESENDEZ [employer] Urine Fryav4487-48-54 18:07:00* Test Item Value Reference Range Interpretation Comments Urine Color (test code = 5778-6) YELLOW YELLOW [facility] HospitalUrine Uvctwmy5163-64-98 18:07:00* Test Item Value Reference Range Interpretation Comments Urine Clarity (test code = 31091-6) HAZY CLEAR [facility] HospitalUrine JBF8418-15-22 18:07:00* Test Item Value Reference Range Interpretation Comments Urine WBC (test code = 5821-4) 21-50 0-5 H [facility] HospitalUrine YUQ2727-62-34 18:07:00* Test Item Value Reference Range Interpretation Comments Urine RBC (test code = 10078-2) 0-5 0-5 [facility] HospitalUrine Koqijduy3250-10-63 18:07:00* Test Item Value Reference Range Interpretation Comments Urine Bacteria (test code = 99704-4) MANY NONE H [facility] HospitalUrine Epithelial Lqncp0880-84-33 18:07:00 * Test Item Value Reference Range Interpretation Comments Urine Epithelial Cells (test code = 18525-0) FEW NONE [facility] HospitalTotal Lnshsvzzt3247-04-77 18:07:00* Test Item Value Reference Range Interpretation Comments Total Bilirubin (test code = 1975-2) 0.3 0.2-1.2 [facility] HospitalAspartate Amino Transf (AST/SGOT) 2018-09-13 18:07:00* Test Item Value Reference Range Interpretation Comments Aspartate Amino Transf (AST/SGOT) (test code = Aspartate Amino Transf (AST/SGOT)) 13 5-34 [facility] HospitalAlanine Aminotransferase (ALT/SGPT) 2018-09-13 18:07:00* Test Item Value Reference Range Interpretation Comments Alanine Aminotransferase (ALT/SGPT) (test code = 1742-6) 18 0-55 [facility] HospitalTotal Lllbhav8885-55-31 18:07:00* Test Item Value Reference Range Interpretation Comments Total Protein (test code = 2885-2) 6.7 6.5-8.1 [facility] HospitalAlbumin2018-11-18 18:07:00* Test Item Value Reference Range Interpretation Comments Albumin (test code = 1751-7) 3.3 3.5-5.0 L [facility] HospitalGlobulin2018-11-18 18:07:00* Test Item Value Reference Range Interpretation Comments Globulin (test code = 30633-5) 3.4 2.3-3.5 [facility] HospitalAlbumin/Globulin Jbvle3999-52-40 18:07:00 * Test Item Value Reference Range Interpretation Comments Albumin/Globulin Ratio (test code = 1759-0) 1.0 0.8-2.0 [facility] HospitalAlkaline Xfwvsiwpfgk2262-28-85 18:07:00* Test Item Value Reference Range Interpretation Comments Alkaline Phosphatase (test code = 6768-6) 78 40-150 [facility] HospitalUrine Ddrab3110-52-69 18:07:00* Test Item Value Reference Range Interpretation Comments Urine Color (test code = 5778-6) YELLOW YELLOW [facility] HospitalUrine Umufphe0565-67-47 18:07:00* Test Item Value Reference Range Interpretation Comments Urine Clarity (test code = 49912-7) HAZY CLEAR [facility] HospitalUrine OXK0866-18-53 18:07:00* Test Item Value Reference Range Interpretation Comments Urine WBC (test code = 5821-4) 21-50 0-5 H [facility] HospitalUrine XPW1123-27-68 18:07:00* Test Item Value Reference Range Interpretation Comments Urine RBC (test code = 19795-1) 0-5 0-5 [facility] HospitalUrine Ydtqneyh3003-57-61 18:07:00* Test Item Value Reference Range Interpretation Comments Urine Bacteria (test code = 46886-0) MANY NONE H [facility] HospitalUrine Epithelial Vrmsz2042-79-42 18:07:00 * Test Item Value Reference Range Interpretation Comments Urine Epithelial Cells (test code = 83848-2) FEW NONE [facility] HospitalLactic Acid Afnxg0606-48-09 18:05:00* Test Item Value Reference Range Interpretation Comments Lactic Acid Level (test code = Lactic Acid Level) 13.7 4.5- 19.8 [facility] HospitalLactic Acid Piapy3730-99-38 18:05:00* Test Item Value Reference Range Interpretation Comments Lactic Acid Level (test code = Lactic Acid Level) 13.7 4.5- 19.8 [facility] HospitalUrine Specific Kvrbmea2763-12-41 18:04:00 * Test Item Value Reference Range Interpretation Comments Urine Specific [place] (test code = 5811-5) 1.015 1.010-1.02 5 [facility] HospitalUrine uQ5890-13-02 18:04:00* Test Item Value Reference Range Interpretation Comments Urine pH (test code = 66581-8) 6 5-7 [facility] HospitalUrine Leukocyte Wtrtvkyn5512-34-70 18:04:00* Test Item Value Reference Range Interpretation Comments Urine Leukocyte Esterase (test code = 5799-2) TRACE NEGATIVE H [facility] HospitalUrine Jwypfwm2403-07-22 18:04:00* Test Item Value Reference Range Interpretation Comments Urine Nitrite (test code = 50912-8) POSITIVE NEGATIVE H [facility] HospitalUrine Gorpgat1849-31-15 18:04:00* Test Item Value Reference Range Interpretation Comments Urine Protein (test code = 5804-0) NEGATIVE NEGATIVE [facility] HospitalUrine Glucose (UA)2018-09-13 18:04:00* Test Item Value Reference Range Interpretation Comments Urine Glucose (UA) (test code = 2349-9) NEGATIVE NEGATIVE [facility] HospitalUrine Gielsgr3930-77-27 18:04:00* Test Item Value Reference Range Interpretation Comments Urine Ketones (test code = 86963-5) NEGATIVE NEGATIVE [facility] HospitalUrine Alzxomkhqbxl4786-18-07 18:04:00* Test Item Value Reference Range Interpretation Comments Urine Urobilinogen (test code = 12849-2) 0.2 0.2-1 [facility] HospitalUrine Qkbphgpji3430-88-99 18:04:00* Test Item Value Reference Range Interpretation Comments Urine Bilirubin (test code = 1978-6) NEGATIVE NEGATIVE [facility] HospitalUrine Karlw8767-41-99 18:04:00* Test Item Value Reference Range Interpretation Comments Urine Blood (test code = 93547-4) NEGATIVE NEGATIVE [facility] HospitalUrine Specific Brzihrd5605-34-42 18:04:00 * Test Item Value Reference Range Interpretation Comments Urine Specific [place] (test code = 5811-5) 1.015 1.010-1.02 5 [facility] HospitalUrine sZ6243-34-39 18:04:00* Test Item Value Reference Range Interpretation Comments Urine pH (test code = 97803-5) 6 5-7 [facility] HospitalUrine Leukocyte Trhkdecm6200-36-38 18:04:00* Test Item Value Reference Range Interpretation Comments Urine Leukocyte Esterase (test code = 5799-2) TRACE NEGATIVE H [facility] HospitalUrine Skosvfs0559-78-86 18:04:00* Test Item Value Reference Range Interpretation Comments Urine Nitrite (test code = 45582-1) POSITIVE NEGATIVE H [facility] HospitalUrine Gpyvyof1692-36-12 18:04:00* Test Item Value Reference Range Interpretation Comments Urine Protein (test code = 5804-0) NEGATIVE NEGATIVE [facility] HospitalUrine Glucose (UA)2018-09-13 18:04:00* Test Item Value Reference Range Interpretation Comments Urine Glucose (UA) (test code = 2349-9) NEGATIVE NEGATIVE [facility] Vizpbbn2736-72-40 18:04:00* Test Item Value Reference Range Interpretation Comments Urine Ketones (test code = 61005-5) NEGATIVE NEGATIVE [facility] Hospital[facility] Kcqvdsackmoe5606-37-72 18:04:00* Test Item Value Reference Range Interpretation Comments Urine Urobilinogen (test code = 26380-0) 0.2 0.2-1 [facility] Qcpjtdgoj2129-16-65 18:04:00* Test Item Value Reference Range Interpretation Comments Urine Bilirubin (test code = 1978-6) NEGATIVE NEGATIVE [facility] Hospital[facility] Uvjut3481-33-15 18:04:00* Test Item Value Reference Range Interpretation Comments Urine Blood (test code = 22437-0) NEGATIVE NEGATIVE [facility] HospitalActivated Partial Thromboplast Time 2018-09-13 18:01:00* Test Item Value Reference Range Interpretation Comments Activated Partial Thromboplast Time (test code = 15593-2) 43.2 23.8-35.5 H [facility] HospitalActivated Partial Thromboplast Time 2018-09-13 18:01:00* Test Item Value Reference Range Interpretation Comments Activated Partial Thromboplast Time (test code = 28983-5) 43.2 23.8-35.5 H [facility] HospitalCHEST SINGLE (PORTABLE)2018-09-13 17:32:00 [place] [address] Patient Name: STEVE BENEDICT MR #: [id number] : 1945 Age/Sex: 73/M Req #: [id number] Adm Physician: Ordered by: IBAN RAMOS MD Report #: [id number] Location: ER Room/Bed: Procedure: [id number] DX/ CHEST SINGLE (PORTABLE) Exam Date: 09/13/18 [...] MD GASTRIC,BIOPSY 2018-08-21 11:54:00 RUN DATE: 08/21/18 [facility] PAGE 1 RUN TIME: 1154 Specimen Inqui ry RUN USER: INTERFACE PATIENT: STEVE BENEDICT ACCT #: V [id number] LOC: CarriDSU U #: [id number] AGE/SX: 72/M ROOM: RE08/20/18REG DR: Mauro Pan MD : 43 BED: DIS: STATUS: [facility] TLOC: SPEC #: [id number] RECD: 08/20/18 STATUS: AROLDO REQ #: [id number] HAYDEN: 08/20/18 [facility] DR: Mauro Pan MD ENTERED: 08/20/18 SP TYPE: GASTRIC BX OTHR DR: Teofilo Summers MD ORDERED: GROSS COPIES TO: Mauro Pan MD [address] [place] [address] Teofilo Summers MD [address] [place] [address] PROCEDURES: GROSS (08/21/18-1147) TIS SUES: 1. ANTRUM [...] TO FOLLOW NEGATIVE FOR MALIGNANCY RRB/sm D 28418, 88 338, 73297 CONTINUED ON NEXT PAGE --------- ---RUN DATE: 08/21/18 [facility] PAGE 2 RUN TIME: 1154 Specimen Inquiry RUN USER: INTERFACE SPEC #: [id number] PATIENT: STEVE BENEDICT #[id number] (Continued) MACROSCOPIC The sp ecimen is received in formalin, labeled with the patient's name and identified as "gastric bx". It consists of ballesteros biopsy material measuring 0.5 cm in aggr egate. An H E and a Giemsa stain will be prepared. GROSS PERFORMED AT [facility] [address] [facility], [place], [place] [address] (P)[phone] MICROSCOPIC MICROSCOPIC PERFORMED AT [facility] All of the stains, including any controls performed, stain a ppropriately. [facility] [address] [facility], [place], [place] [address] (P)[phone] PERFORMING SITE Diagnosis performed at: [facility] [place] [address] [facility] [address] Signed SIGNATURE ON FILE Bon Spivey 08/21/18 1154 END OF REPORT GASTRIC,CARUVR2061-14-94 11:54:00 RUN DATE: 08/25/18 [facility] PAGE 1 RUN TIME: 1157 Specimen Inqui ry RUN USER: INTERFACE PATIENT: STEVE BENEDICT ACCT #: V [id number] LOC: SYDNIEU U #: [id number] AGE/SX: 72/M ROOM: RE08/20/18[facility] DR: Mauro Pan MD : 43 BED: DIS: STATUS: [facility] TLOC: SPEC #: [id number] RECD: 08/20/18 STATUS: AROLDO [facility] #: [id number] HAYDEN: 08/20/18 [facility] DR: Mauro Pan MD ENTERED: 08/20/18 SP TYPE: GASTRIC BX OTHR DR: Teofilo Summers MD ORDERED: GROSS COPIES TO: Mauro Pan MD [address] [place], [place] [id number] Teofilo Summers MD [address] [place] [address] PROCEDURES: GROSS (08/21/18) TIS SUES: 1. ANTRUM - BX ADDENDUM FINDINGS Addendum #1 Entered: 08/25/18 Paraffin embedded tissue was submitted to [facility] for an immunoperoxidase stain for Helicobacter pylori. The slide is reviewed at [facility]. No Helicobacter organisms are identified by immunoperoxidase st aleman. The original diagnosis remains otherwise unchanged. Addendum Signed SIGN ATURE ON FILE Bon Spivey 08/25/181156 CLINICAL HISTORY COLLECTION DATE: 08/20/2018 FOLLOW UP FOR ULCERS POST-OP DIAGNOSIS: MILD GASTRITIS CONTINUED ON NEXT PAGE RUN DATE: 08/25/18 [facility] PAGE 2 RUN TIME: 1157 Specimen Inquiry RUN USER: INTERFACE SPEC #: [id number] ED[facility] ENT: STEVE BENEDICT #[id number] (Continued) FINAL DIAGNOSIS Gastric tissue, cold biopsy: REACTIVE GASTROPATHY SEPARATE FRAGMENTS OF GASTRIC MUCOSA WITH NO SIGNIFICANT PATHO LOGIC ALTERATION NO ACUTE INFLAMMATORY INFILTRATE PRESENT NEGATIVE FOR INTESTINAL METAPLASIA FEW COCCOID STRUCTURES IDENTIFIED BY GIEMSA ST AIN IMMUNOPEROXIDASE STAIN FOR HELICOBACTER PYLORI PENDING, ADD ENDUM REPORT TO FOLLOW NEGATIVE FOR MALIGNANCY RRB/sm D 883 05, [address]235, [address]2011 MACROSCOPIC The specimen is received in formalin, labeled with the patient's name and identified as "gastric bx". It consists o f ballesteros biopsy material measuring 0.5 cm in aggregate. An H E and a Giemsa stain will be prepared. GROSS PERFORMED AT [facility] [address] [place] [address] (p)[phone] MICROSCOPIC MICROSCOPIC PERFORMED AT [facility] All of the sta ins, including any controls performed, stain appropriately. [facility] [address] [place] [address] (P)[phone] PE RFORMING SITE Diagnosis performed at: [facility] [place] [address] [place] [address] CONTINUED ON NEXT PAGE RUN DATE: [facility] PAGE 3 RUN TIME: 1157 Specimen Inquiry R UN USER: INTERFACE --- ---------SPEC #: [id number] PATIENT: STEVE BENEDICT #[id number] (Continued) Signed SIGNATURE ON FILE Bon Spivey 08/21/18 1154 END OF REPORT Bedside Tpikdum5977-85-94 11:36:00* Test Item Value Reference Range Interpretation Comments Bedside Glucose (test code = 36109-4) 98 70-120 Meter ID: [id number] Texas Spine & Surgical Hospitalodium Level 2018-08-05 06:01:00* Test Item Value Reference Range Interpretation Comments Sodium Level (test code = 2951-2) 139 136-145 [facility] HospitalPotassium Enbkv1533-77-18 06:01:00* Test Item Value Reference Range Interpretation Comments Potassium Level (test code = 2823-3) 5.3 3.5-5.1 H [facility] HospitalChloride Yvwsg4123-91-19 06:01:00* Test Item Value Reference Range Interpretation Comments Chloride Level (test code = 2075-0) 98 98-107 [facility] HospitalCarbon Dioxide Wyiuk8822-19-82 06:01:00* Test Item Value Reference Range Interpretation Comments Carbon Dioxide Level (test code = 2028-9) 33 22-29 H [facility] HospitalAnion Oqv2914-66-96 06:01:00* Test Item Value Reference Range Interpretation Comments Anion Gap (test code = 85761-1) 13.3 8-16 [facility] HospitalBlood Urea Axtavuiy9587-72-78 06:01:00* Test Item Value Reference Range Interpretation Comments Blood Urea Nitrogen (test code = 3094-0) 26 7-26 [facility] HospitalCreatinine2018-10-10 06:01:00* Test Item Value Reference Range Interpretation Comments Creatinine (test code = 2160-0) 1.85 0.72-1.25 H [facility] HospitalBUN/Creatinine Oheyn2545-99-35 06:01:00* Test Item Value Reference Range Interpretation Comments BUN/Creatinine Ratio (test code = 3097-3) 14 6-25 [facility] HospitalEstimat Glomerular Filtration Rate 2018-08-05 06:01:00* Test Item Value Reference Range Interpretation Comments Estimat Glomerular Filtration Rate (test code = 081838675) 36 >60 L Ranges were taken from the National Kidney Disease Education Program and the Replaced by [facility] Foundation literature.Reference ranges:60 or greater: Nlehqk56-34 ( for 3 consecutive months): Chronic kidney disease 15 or less: Kidney failureLegent Orthopedic HospitalGlucose Mhfif2205-50-27 06:01:00* Test Item Value Reference Range Interpretation Comments Glucose Level (test code = QRM6968) 107 74-118 [facility] HospitalCalcium Ncnxc1447-38-62 06:01:00* Test Item Value Reference Range Interpretation Comments Calcium Level (test code = 50881-5) 10.0 8.4-10.2 [facility] HospitalTotal Hjdrotsfy5913-55-64 06:01:00* Test Item Value Reference Range Interpretation Comments Total Bilirubin (test code = 1975-2) 0.6 0.2-1.2 [facility] HospitalAspartate Amino Transf (AST/SGOT) 2018-08-05 06:01:00* Test Item Value Reference Range Interpretation Comments Aspartate Amino Transf (AST/SGOT) (test code = Aspartate Amino Transf (AST/SGOT)) 15 5-34 [facility] HospitalAlanine Aminotransferase (ALT/SGPT) 2018-08-05 06:01:00* Test Item Value Reference Range Interpretation Comments Alanine Aminotransferase (ALT/SGPT) (test code = 1742-6) 15 0-55 [facility] HospitalTotal Picbfzv6797-65-70 06:01:00* Test Item Value Reference Range Interpretation Comments Total Protein (test code = 2885-2) 6.3 6.5-8.1 L [facility] HospitalAlbumin2018-10-10 06:01:00* Test Item Value Reference Range Interpretation Comments Albumin (test code = 1751-7) 3.5 3.5-5.0 [facility] HospitalGlobulin2018-10-10 06:01:00* Test Item Value Reference Range Interpretation Comments Globulin (test code = 63527-4) 2.8 2.3-3.5 [facility] HospitalAlbumin/Globulin Wvadc7289-27-67 06:01:00 * Test Item Value Reference Range Interpretation Comments Albumin/Globulin Ratio (test code = 1759-0) 1.3 0.8-2.0 [facility] HospitalAlkaline Aeskzkczfrv2138-79-69 06:01:00* Test Item Value Reference Range Interpretation Comments Alkaline Phosphatase (test code = 6768-6) 81 40-150 [facility] HospitalCreatine Wsoilg5789-32-37 06:01:00* Test Item Value Reference Range Interpretation Comments Creatine Kinase (test code = 2157-6) 89 30-200 [facility] HospitalProthrombin Xdpy0994-94-09 05:43:00* Test Item Value Reference Range Interpretation Comments Prothrombin Time (test code = 5902-2) 27.8 11.9-14.5 H [facility] HospitalProthromb Time International Ratio 2018-08-05 05:43:00* Test Item Value Reference Range Interpretation Comments Prothromb Time International Ratio (test code = 6301-6) 2.38 Oral Anticoagulant Therapy INR Values:1. Low Intensity Therapy 1.5 - 2.02 . Moderate Intensity Therapy 2.0 - 3.03. High Intensity Therapy(1) 2.5 - 3. 54. High Intensity Therapy(2) 3.0 - 4.05. Panic Value INR > 5.0 [facility] HospitalPhosphorus Tbmhy6232-65-67 09:10:00* Test Item Value Reference Range Interpretation Comments Phosphorus Level (test code = FRM3910) 2.9 2.3-4.7 [facility] HospitalMagnesium Dmeus2469-22-68 09:10:00* Test Item Value Reference Range Interpretation Comments Magnesium Level (test code = 63481-3) 1.8 1.3-2.1 [facility]2018-10-09 09:10:00* Test Item Value Reference Range Interpretation Comments Phosphorus Level (test code = KAS6210) 2.9 2.3-4.7 [facility]2018-10-09 09:10:00* Test Item Value Reference Range Interpretation Comments Phosphorus Level (test code = QVS2819) 2.9 2.3-4.7 [facility]2018-10-09 09:10:00* Test Item Value Reference Range Interpretation Comments Phosphorus Level (test code = WHN0485) 2.9 2.3-4.7 [facility]2018-10-09 09:10:00* Test Item Value Reference Range Interpretation Comments Phosphorus Level (test code = UQD5832) 2.9 2.3-4.7 [facility]2018-10-09 09:10:00* Test Item Value Reference Range Interpretation Comments Phosphorus Level (test code = XNV9342) 2.9 2.3-4.7 [facility]2018-10-09 09:10:00* Test Item Value Reference Range Interpretation Comments Phosphorus Level (test code = GKR9181) 2.9 2.3-4.7 [facility] HospitalB-Type Natriuretic Epekcxg6234-37-12 15:23:00* Test Item Value Reference Range Interpretation Comments B-Type Natriuretic Peptide (test code = 27224-4) 131.9 0-100 H [facility] HospitalThyroid Stimulating Hormone (TSH) 2018-08-01 06:17:00* Test Item Value Reference Range Interpretation Comments Thyroid Stimulating Hormone (TSH) (test code = 18223-0) 1.215 0.350-4.940 [facility] HospitalUrine Random Bmklfrwnl9579-28-63 05:42:00 * Test Item Value Reference Range Interpretation Comments Urine Random Potassium (test code = 2828-2) 24.1 [facility] HospitalUrine Jqqbvbgrom5425-07-78 05:42:00* Test Item Value Reference Range Interpretation Comments Urine Creatinine (test code = 2161-8) 61.99 63-166 L [facility] Random Wrgdipsol9734-64-40 05:42:00 * Test Item Value Reference Range Interpretation Comments Urine Random Potassium (test code = 2828-2) 24.1 [facility] HospitalUrine Judwhgwitm8767-22-28 05:42:00* Test Item Value Reference Range Interpretation Comments Urine Creatinine (test code = 2161-8) 61.99 63-166 L [facility] HospitalUrine Random Hutewhotn7809-47-84 05:42:00 * Test Item Value Reference Range Interpretation Comments Urine Random Potassium (test code = 2828-2) 24.1 [facility] HospitalUrine Lkvpqsbueo9917-94-71 05:42:00* Test Item Value Reference Range Interpretation Comments Urine Creatinine (test code = 2161-8) 61.99 63-166 L [facility] HospitalUrine Random Pfpczjsms9194-65-12 05:42:00 * Test Item Value Reference Range Interpretation Comments Urine Random Potassium (test code = 2828-2) 24.1 [facility] HospitalUrine Random Bendfvrqz1312-32-73 05:42:00 * Test Item Value Reference Range Interpretation Comments Urine Random Potassium (test code = 2828-2) 24.1 [facility] HospitalUrine Random Nylwetuqm3813-97-78 05:42:00 * Test Item Value Reference Range Interpretation Comments Urine Random Potassium (test code = 2828-2) 24.1 [facility] HospitalUrine Random Jecgfmajm2719-51-55 05:42:00 * Test Item Value Reference Range Interpretation Comments Urine Random Potassium (test code = 2828-2) 24.1 [facility] HospitalUrine Random Mtgypyzyg2742-82-66 05:42:00 * Test Item Value Reference Range Interpretation Comments Urine Random Potassium (test code = 2828-2) 24.1 [facility] HospitalUrine Random Duivcmeho2650-61-87 05:42:00 * Test Item Value Reference Range Interpretation Comments Urine Random Potassium (test code = 2828-2) 24.1 [facility] HospitalUrine Random Upaqrqitj7953-48-75 05:42:00 * Test Item Value Reference Range Interpretation Comments Urine Random Potassium (test code = 2828-2) 24.1 [facility] HospitalWhite Blood Ezdet4267-43-17 05:39:00* Test Item Value Reference Range Interpretation Comments White Blood Count (test code = 6690-2) 8.09 4.8-10.8 [facility] HospitalRed Blood Mjcpr2810-22-76 05:39:00* Test Item Value Reference Range Interpretation Comments Red Blood Count (test code = 789-8) 5.77 4.3-5.7 H [facility] HospitalHemoglobin2018-10-06 05:39:00* Test Item Value Reference Range Interpretation Comments Hemoglobin (test code = 85239-0) 14.2 14.0-18.0 [facility] HospitalHematocrit2018-10-06 05:39:00* Test Item Value Reference Range Interpretation Comments Hematocrit (test code = 4544-3) 47.5 38.2-49.6 [facility] HospitalMean Corpuscular Eyktbd0280-98-16 05:39:00* Test Item Value Reference Range Interpretation Comments Mean Corpuscular Volume (test code = 787-2) 82.3 81-99 [facility] HospitalMean Corpuscular Fhvqoyhxhn6336-47-40 05:39:00* Test Item Value Reference Range Interpretation Comments Mean Corpuscular Hemoglobin (test code = 785-6) 24.6 28-32 L [facility] HospitalMean Corpuscular Hemoglobin Concent 2018-08-01 05:39:00* Test Item Value Reference Range Interpretation Comments Mean Corpuscular Hemoglobin Concent (test code = 786-4) 29.9 31-35 L [facility] HospitalRed Cell Distribution Xkpwf8928-00-12 05:39:00* Test Item Value Reference Range Interpretation Comments Red Cell Distribution Width (test code = 94320-8) 17.2 11.7 -14.4 H [facility] HospitalPlatelet Dbhwu3697-83-61 05:39:00* Test Item Value Reference Range Interpretation Comments Platelet Count (test code = 777-3) 213 140-360 [facility] HospitalNeutrophils (%) (Auto)2018-08-01 05:39:00 * Test Item Value Reference Range Interpretation Comments Neutrophils (%) (Auto) (test code = 65144-5) 62.9 38.7-80.0 [facility] HospitalLymphocytes (%) (Auto)2018-08-01 05:39:00 * Test Item Value Reference Range Interpretation Comments Lymphocytes (%) (Auto) (test code = 736-9) 21.4 18.0-39.1 [facility] HospitalMonocytes (%) (Auto)2018-08-01 05:39:00* Test Item Value Reference Range Interpretation Comments Monocytes (%) (Auto) (test code = 5905-5) 12.4 4.4-11.3 H [facility] HospitalEosinophils (%) (Auto)2018-08-01 05:39:00 * Test Item Value Reference Range Interpretation Comments Eosinophils (%) (Auto) (test code = 713-8) 2.3 0.0-6.0 [facility] HospitalBasophils (%) (Auto)2018-08-01 05:39:00* Test Item Value Reference Range Interpretation Comments Basophils (%) (Auto) (test code = 706-2) 0.6 0.0-1.0 [facility] HospitalIM GRANULOCYTES %2018-08-01 05:39:00* Test Item Value Reference Range Interpretation Comments IM GRANULOCYTES % (test code = IM GRANULOCYTES %) 0.4 0.0- 1.0 [facility] HospitalNeutrophils # (Auto)2018-08-01 05:39:00* Test Item Value Reference Range Interpretation Comments Neutrophils # (Auto) (test code = 751-8) 5.1 2.1-6.9 [facility] HospitalLymphocytes # (Auto)2018-08-01 05:39:00* Test Item Value Reference Range Interpretation Comments Lymphocytes # (Auto) (test code = 80200-6) 1.7 1.0-3.2 [facility] HospitalMonocytes # (Auto)2018-08-01 05:39:00* Test Item Value Reference Range Interpretation Comments Monocytes # (Auto) (test code = 742-7) 1.0 0.2-0.8 H [facility] HospitalEosinophils # (Auto)2018-08-01 05:39:00* Test Item Value Reference Range Interpretation Comments Eosinophils # (Auto) (test code = 711-2) 0.2 0.0-0.4 [facility] HospitalBasophils # (Auto)2018-08-01 05:39:00* Test Item Value Reference Range Interpretation Comments Basophils # (Auto) (test code = 704-7) 0.1 0.0-0.1 [facility] HospitalAbsolute Immature Granulocyte (auto 2018-08-01 05:39:00* Test Item Value Reference Range Interpretation Comments Absolute Immature Granulocyte (auto (bharat t code = Absolute Immature Granulocyte (auto) 0.03 0-0.1 [facility] HospitalUrine FKB3896-54-06 05:27:00* Test Item Value Reference Range Interpretation Comments Urine WBC (test code = 5821-4) 11-20 0-5 H [facility] HospitalUrine FVY3142-43-11 05:27:00* Test Item Value Reference Range Interpretation Comments Urine RBC (test code = 73190-8) 6-10 0-5 H [facility] HospitalUrine Wpviasbg8510-57-48 05:27:00* Test Item Value Reference Range Interpretation Comments Urine Bacteria (test code = 69590-1) FEW NONE [facility] HospitalUrine Epithelial Owqpa3611-81-13 05:27:00 * Test Item Value Reference Range Interpretation Comments Urine Epithelial Cells (test code = 01644-7) FEW NONE [facility] HospitalUrine Humvh6573-35-67 05:21:00* Test Item Value Reference Range Interpretation Comments Urine Color (test code = 5778-6) YELLOW YELLOW [facility] HospitalUrine Uesvabv7226-78-70 05:21:00* Test Item Value Reference Range Interpretation Comments Urine Clarity (test code = 84260-0) CLEAR CLEAR [facility] HospitalUrine Specific Upwfqsa7377-09-30 05:21:00 * Test Item Value Reference Range Interpretation Comments Urine Specific [place] (test code = 5811-5) 1.010 1.010-1.02 5 [facility] HospitalUrine yG5311-33-18 05:21:00* Test Item Value Reference Range Interpretation Comments Urine pH (test code = 92770-4) 6 5-7 [facility] HospitalUrine Leukocyte Jsznhpyp0416-62-61 05:21:00* Test Item Value Reference Range Interpretation Comments Urine Leukocyte Esterase (test code = 5799-2) 1+ NEGATIVE H [facility] Covdvfu0369-71-69 05:21:00* Test Item Value Reference Range Interpretation Comments Urine Nitrite (test code = 74643-6) NEGATIVE NEGATIVE [facility] HospitalUrine Znmioyc5409-70-52 05:21:00* Test Item Value Reference Range Interpretation Comments Urine Protein (test code = 5804-0) NEGATIVE NEGATIVE [facility] HospitalUrine Glucose (UA)2018-08-01 05:21:00* Test Item Value Reference Range Interpretation Comments Urine Glucose (UA) (test code = 2349-9) NEGATIVE NEGATIVE [facility] HospitalUrine Kweyecx7036-81-22 05:21:00* Test Item Value Reference Range Interpretation Comments Urine Ketones (test code = 43357-0) NEGATIVE NEGATIVE [facility] HospitalUrine Muwtregdvtnb4635-14-04 05:21:00* Test Item Value Reference Range Interpretation Comments Urine Urobilinogen (test code = 59438-5) 0.2 0.2-1 [facility] HospitalUrine Lnegyzagc6914-34-23 05:21:00* Test Item Value Reference Range Interpretation Comments Urine Bilirubin (test code = 1978-6) NEGATIVE NEGATIVE [facility] HospitalUrine Zehwb7424-03-20 05:21:00* Test Item Value Reference Range Interpretation Comments Urine Blood (test code = 53621-2) 1+ NEGATIVE H [facility] HospitalCHEST 2 LUBXJ6827-85-79 16:42:00 [facility] [address] [place] [address] Patient Name: STEVE BENEDICT MR #: [id number] : 1945 Age/Sex: 72/M Req #: [id number] Adm Physician: HAILEE MCGUIRE MD Ordered by: HAILEE MCGUIRE MD Report #: [id number] Location: [facility] Room/Bed: [place] [address] Procedure: [id number] DX/C HEST 2 VIEWS Exam Date: 07/31/18 [...] COPY TO: HAILEE MCGUIRE MD RENAL RETROPERITONEAL JZOA3061-76-73 15:30:00 [place] [address] Patient Name: STEVE BENEDICT MR #: [id number] : 1945 Age/Sex: 72/M Req #: [id number] Adm Physician: HAILEE MCGUIRE MD Ordered by: HAILEE MCGUIRE MD Report #: [id number] Location: [facility] Room/Bed: [place] [address] Procedure: [id number] US/U S RENAL RETROPERITONEAL COMP Exam Date: [...] PERSON MD Transcribed By: ERAN on 07/31/18 9125 COPY TO: HAILEE MCGUIRE MD Creatine Kinase VX4724-87-83 14:46:00* Test Item Value Reference Range Interpretation Comments Creatine Kinase MB (test code = 29463-6) 15.00 0-5.0 H [facility] HospitalTroponin R2257-75-38 14:46:00* Test Item Value Reference Range Interpretation Comments Troponin I (test code = UJL5597) 0.011 0-0.300 [facility] HospitalCHEM SZDRT1248-89-30 14:28:0055[facility] DCNHQ9105-38-07 14:28:001.3[facility]annCHE[facility] PCYYZ6949-23-71 14:02:0055[facility]annCHEM TQUJQ3563-01-96 14:02:001.3[facility] VIEWS [place] [address] Patient Name: STEVE BENEDICT MR #: [id number] : 1945 Age/Sex: 71/M Req #: [id number] Adm Physician: Ordered by: TEOFILO SUMMERS Report #: [id number] Location: [facility] Room/Bed: Procedure: [id number] DX/CHEST 2 VIEWS Exam Date: Exam Time: [...]
[2020-06-21] MEDS ORDERED: ALBUTEROL/IPRATROPIUM 3 ML NEB NEB ONE ×2 (09:00→13:15)
[2020-06-21] MEDS ORDERED: VANCOMYCIN 1GM/NS 250 ML 250 ML IV STA (09:09)
[2020-06-21] MEDS ORDERED: PIPER-TAZ 3.375 GM 50 ML IV STA (09:09)
[2020-06-21 09:12] LABS: BASOPHILS % 0.2 % (0.0-1.0); EOSINOPHILS % 0.7 % (0.0-6.0); HEMATOCRIT 28.1 % (38.2-49.6); HEMOGLOBIN 8.7 g/dL (14.0-18.0); LYMPHOCYTES # (AUTO) 0.6 (1.0-3.2); MEAN CORPUSCULAR HEMOGLOBIN 29.7 pg (28-32); MEAN CORPUSCULAR VOLUME 95.9 fL (81-99); MONOCYTES # (AUTO) 0.3 (0.2-0.8); MONOCYTES % 5.2 % (4.4-11.3); NEUTROPHILS # (AUTO) 4.5 (2.1-6.9); NEUTROPHILS % 81.1 % (38.7-80.0); PLATELET COUNT 147 x10e3/uL (140-360); RED BLOOD COUNT 2.93 x10e6/uL (4.3-5.7); RED CELL DISTRIBUTION WIDTH 17.7 % (11.7-14.4)
[2020-06-21] MEDS ORDERED: SODIUM CHLORIDE 0.9% 500ML 500 ML IV ONE (09:15)
[2020-06-21 09:34] LABS: INR 1.69; PROTHROMBIN TIME 20.9 seconds (11.9-14.5)
[2020-06-21 09:35] LABS: PARTIAL THROMBOPLASTIN TIME 51.8 seconds (23.8-35.5)
[2020-06-21 09:46] LABS: ALBUMIN 2.7 g/dL (3.5-5.0); ALBUMIN/GLOBULIN RATIO 0.8 (0.8-2.0); CREATININE, SERUM 2.89 mg/dL (0.72-1.25); MAGNESIUM 2.4 MG/DL (1.3-2.1)
[2020-06-21 09:53] LABS: B-TYPE NATRIURETIC PEPTIDE2 678.1 pg/mL (0-100); CREATINE KINASE MB 6.6 ng/mL (0-5.0)
--- NOTE | 2020-06-21 10:32 | Diagnostic Imaging Report ---
EXAMINATION: CHEST SINGLE (PORTABLE) INDICATION: COPD, shortness of breath COMPARISON: Chest radiograph of 06/19/2020 FINDINGS: LINES/TUBES:EKG leads overlie the chest. LUNGS:The lungs are well-inflated. Hazy peripheral right mid lung opacity, new compared to 06/19/2020. Scattered patchy opacities in the left lung appear unchanged. PLEURA:No pleural effusion or pneumothorax. MEDIASTINUM:The cardiomediastinal silhouette appears unchanged in size and shape, magnified by portable technique. BONES/SOFT TISSUES:No acute osseous injury. Partially visualized cervical spine fusion hardware. ABDOMEN:No free air under the diaphragm. IMPRESSION: New hazy lateral right midlung opacity may represent pneumonia in the proper clinical setting. Unchanged left lower lung subsegmental atelectasis. Signed by: Santino Gutierrez MD on 06/21/2020 10:29 AM
--- NOTE | 2020-06-21 10:41 | Diagnostic Imaging Report ---
EXAM: CT Abdomen and Pelvis WITHOUT intravenous contrast INDICATION: Fall, tremors COMPARISON: Chest radiograph of the same day TECHNIQUE: Abdomen and pelvis were scanned utilizing a multidetector helical scanner from the lung base to the pubic symphysis without administration of IV contrast. Coronal and sagittal reformations were obtained. IV CONTRAST: None ORAL CONTRAST: Water COMPLICATIONS: None RADIATION DOSE: Total DLP: 790 mGy*cm Dose modulation, iterative reconstruction, and/or weight based adjustment of the mA/kV was utilized to reduce the radiation dose to as low as reasonably achievable. FINDINGS: LOWER THORAX: Bibasilar subsegmental atelectasis. No focal lung base consolidation. HEPATOBILIARY: Mildly nodular liver surface contour. No focal liver lesion. Mild gallbladder distention. No CT evidence of cholelithiasis or cholecystitis. SPLEEN: Splenomegaly to 16.4 cm. PANCREAS: No focal masses or ductal dilatation. ADRENALS: No adrenal nodules. KIDNEYS/URETERS: No hydronephrosis or renal calculi. Bilateral exophytic renal lesions measure up to 3.5 cm on the left and 3.0 cm on the right and statistically most likely represent cysts however characterization by attenuation is distorted by severe streak artifact related to patient body habitus and contact with the gantry. PELVIC ORGANS/BLADDER: Unremarkable. PERITONEUM / RETROPERITONEUM: No free air or fluid. LYMPH NODES: No lymphadenopathy. VESSELS: Moderate atherosclerotic calcifications of the nonaneurysmal abdominal aorta and major branches. GI TRACT: Severe diverticulosis. No CT evidence of diverticulitis. No abnormal bowel thickening. No bowel obstruction. Prominent stool burden throughout the colon. BONES AND SOFT TISSUES: No acute osseous injury. No suspicious lytic or blastic lesions. Degenerative changes of the visualized spine. IMPRESSION: No acute findings in the abdomen or pelvis. Mildly nodular liver surface contour compatible with early cirrhosis. Splenomegaly to 16.[address] evidence of diverticulitis. Prominent stool burden throughout the colon can be seen in the setting of constipation. Signed by: Santino Gutierrez MD on 06/21/2020 10:37 AM
[2020-06-21] MEDS ORDERED: AZITHROMYCIN 500MG/NS 250 ML 250 ML IV ONE (10:45)
--- NOTE | 2020-06-21 11:49 | NUR ---
[facility] NOTIFIED OF NEED FOR TRANSFER, ETA 1 HR AND 10 MINUTES
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
[2020-06-21] MEDS ORDERED: SODIUM CHLORIDE 0.9% 500ML 500 ML ONE (12:24)
[2020-06-21] MEDS ORDERED: PIPER-TAZ 3.375 GM 50 ML ONE (12:38)
[2020-06-21] MEDS ORDERED: PANTOPRAZOLE 40 MG 10ML VIAL ONE (12:38)
--- NOTE | 2020-06-21 13:50 | NUR ---
BANDAGE TO LEFT KNEE CHANGED, BLEEDING CONTROLLED AT THIS TIME.
== END 2020-06-21 13:51 | disposition other institution (70) ==
LOC: ER 08:44
DX: J96.92 Respiratory failure, unspecified with hypercapnia (principal); J18.9 Pneumonia, unspecified organism; J44.9 Chronic obstructive pulmonary disease, unspecified; N18.9 Chronic kidney disease, unspecified; E11.65 Type 2 diabetes mellitus with hyperglycemia; I10 Essential (primary) hypertension; I48.91 Unspecified atrial fibrillation; M10.9 Gout, unspecified; Z11.59 Encounter for screening for other viral diseases
CPT/HCPCS: 36415; 36600; 71045; 74176; 80053; 81003; 82550; 82553; 83605; 83735; 83880; 84484; 85025; 85610; 85730; 86850; 86900; 87040; 87071; 87205; 93005; 94660; 99284; C9113; J0456; J2543; J7040; U0002

== ENCOUNTER 2020-07-30 16:41 | Inpatient (IN) | payer BC, MEDICARE ==
[~2020-07-30] VITALS: Ht 175.3 cm; Wt 103.9 kg
[2020-07-30] MEDS ORDERED: ASPIRIN 81 MG CHEW TAB PO ONE (17:00)
[2020-07-30 17:58] LABS: BASOPHILS % 0.2 % (0.0-1.0); EOSINOPHILS # (AUTO) 0.1 (0.0-0.4); EOSINOPHILS % 0.7 % (0.0-6.0); LYMPHOCYTES # (AUTO) 0.7 (1.0-3.2); LYMPHOCYTES % 6.4 % (18.0-39.1); MEAN CORPUSCULAR HEMOGLOBIN 30.6 pg (28-32); MEAN CORPUSCULAR HGB CONC 30.3 g/dL (31-35); MEAN CORPUSCULAR VOLUME 100.9 fL (81-99); MONOCYTES # (AUTO) 0.6 (0.2-0.8); MONOCYTES % 5.8 % (4.4-11.3); NEUTROPHILS # (AUTO) 9.2 (2.1-6.9); PLATELET COUNT 136 x10e3/uL (140-360); RED BLOOD COUNT 3.27 x10e6/uL (4.3-5.7); RED CELL DISTRIBUTION WIDTH 17.7 % (11.7-14.4)
--- OUTSIDE RECORDS SUMMARY | 2020-07-30 17:58 | XMS REPORT | Continuity of Care Document ---
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 Tamsulosin hydrochloride 0.4 MG Oral Capsule [Flomax] 0.4 mg = 1 cap, PO, BID, 0 Refill(s) Active 04/07/2020 [facility] Testosterone Cypionate 200 mg/mL intramuscular solutio n 200 mg = 1 ml, IM, q2wk, 0 Refill(s) Active 04/07/2020 [facility] Insulin regular Notes: (Same a s: Humulin R) Roll in palms of hands gently; Do not shake vigorously. WASTE: F/P - Black; E - Municipal Trash Bin Stable for 31 days at room temperature Expires in days from Date Inactive 04/07/2020 [facility] sugammadex (ANES) Route: IV, D rug form: SOLN, ONCE, Stop date: 04/07/20 10:24:00 CDT Inactive 04/07/2020 [facility] norepinephrine (ANES) Route: I V, Drug form: INJ, ONCE, Stop date: 04/07/20 10:18:00 CDT Inactive 04/07/2020 [facility] sugammadex Notes: (Same as: Br idion) No Longer Active 04/07/2020 [facility] albuterol (ANES) Route: INHALA TION, Drug form: AERO/A, ONCE, Stop date: 04/07/20 9:48:00 CDT Inactive 04/07/2020 [facility] ceFAZolin (ANES) Route: IV, Dr ug form: INJ, ONCE, Stop date: 04/07/20 9:38:00 CDT Inactive 04/07/2020 [facility] fentaNYL (ANES) Route: IV, Tristan g form: INJ, ONCE, Stop date: 04/07/20 9:33:00 CDT Inactive 04/07/2020 [facility] esmolol (ANES) Route: IV, Drug form: INJ, ONCE, Stop date: 04/07/20 9:33:00 CDT Inactive 04/07/2020 [facility] Hydralazine Notes: (Same as: A presoline) Push over 5 minutes Inactive 04/07/2020 [facility] esmolol Notes: (Same as: Brevi bloc) Inactive 04/07/2020 [facility] Labetalol 10 mg, 2 mL, Route: IVP, Drug form: INJ, Q5Min, Dosing Weight 99.2, kg, PRN Elevated BP, Start date: 04/07/20 9:31:00 CDT, Duration: 5 doses or times, Stop date: 04/08/20 0:00:00 CDT, 0 Inactive 04/07/2020 [facility] Acetaminophen Notes: Max aceta minophen 4000 mg/day (4 gm/day). (Same as: Tylenol Extra Strength) Inactive 04/07/2020 [facility] Oxycodone Hydrochloride 5 MG Oral Tablet Notes: (Same as: Roxicodone) Inactive 04/07/2020 [facility] Hydromorphone Notes: Same as D ilaudid Inactive 04/07/2020 [facility] Flumazenil Notes: (Same as: Filomena mazicon) Inactive 04/07/2020 [facility] Naloxone Notes: Same as Narcan Inactive 04/07/2020 [facility] Ondansetron Notes: (Same as: Rosanna santamaria) MEDICATION WASTE Product Size: 4 mg Product Wasted: ___ mg Inactive 04/07/2020 [facility] lidocaine (ANES) Route: IV, Dr ug form: INJ, ONCE, Stop date: 04/07/20 9:28:00 CDT Inactive 04/07/2020 [facility] propofol (ANES) Route: IV, Tristan g form: INJ, ONCE, Stop date: 04/07/20 9:28:00 CDT Inactive 04/07/2020 [facility] rocuronium (ANES) Route: IV, D rug form: INJ, ONCE, Stop date: 04/07/20 9:28:00 CDT Inactive 04/07/2020 [facility] phenylephrine (ANES) Route: IV , Drug form: INJ, ONCE, Stop date: 04/07/20 9:12:00 CDT Inactive 04/07/2020 [facility] sugammadex Notes: (Same as: Br idion) Inactive 04/07/2020 [facility] Saline Flush 0.9% Notes: Same as: BD Posiflush Sterile No Longer Active 04/07/2020 [facility] Clobetasol Propionate 0.0005 MG/MG Topical Ointment Notes: (clobetasol propionate 0.05% 15 gm top OIN) (Same As: Temovate) No Longer Active 04/07/2020 [facility] Vitamin D3 Notes: Same as : Vi tamin D3 No Longer Active 04/07/2020 [facility] 24 HR mirabegron 50 MG Extended Release Tablet [Myrbetriq] Notes: (Same as: Myrbetriq ER) Non-Formulary No Longer Active 04/07/2020 [facility] Dulcolax Laxative Notes: (Same As: Dulcolax, Bisco-Lax) No Longer Active 04/07/2020 [facility] Clonazepam 0.5 mg, 1 tab, Rout e: PO, Drug form: TAB, BID, Dosing Weight 99.2, kg, PRN Anxiety, Start date: 04/07/20 8:51:00 CDT, Duration: 30 day, Stop date: 05/07/20 8:50:00 CDT, 0 No Longer Active 04/07/2020 [facility] Metolazone 5 MG Oral Tablet No bharat: (Same as: Zaroxolyn) No Longer Active 04/07/2020 [facility] Acetaminophen Notes: Do not ex ceed 4 gm/day. (Same as: Tylenol) No Longer Active 04/07/2020 [facility] Acetaminophen 325 MG / Hydrocodone Huber trate 10 MG Oral Tablet Notes: Do not exceed 4gm/day of acetamin ophen. (Same as: Keene 325/10) No Longer Active 04/07/2020 [facility] Hydromorphone Notes: Same as D ilaudid Inactive 04/07/2020 [facility] Ondansetron Notes: (Same as: Rosanna santamaria) MEDICATION WASTE Product Size: 4 mg Product Wasted: ___ mg No Longer Active 04/07/2020 [facility] Saline Flush 0.9% Notes: Same as: BD Posiflush Sterile No Longer Active 04/07/2020 [facility] Methadone Notes: (Same as: Dol ophine) No Longer Active 04/07/2020 [facility] Lactated Ringers Injection IV (ANES) 1000 mL Route: IV, Total Volume: 1,000, Start date: 04/07/20 7:34:00 CDT, Stop date: 04/07/20 8:34:00 CDT Inactive 04/07/2020 [facility] 24 HR mirabegron 50 MG Extended Release Tablet [Myrbetriq] 50 mg = 1 tab, PO, Daily, # 90 tab, 0 Re fill(s), [id number] Active 04/04/[facility] Wal-Zyr 10 mg, PO, QPM, 0 Refi ll(s) No Longer Active 04/03/2020 [facility] gabapentin 300 MG Oral Capsule 300 mg = 1 cap, PO, QPM, # 90 cap, 1 Refill(s) No Longe r Active 04/03/2020 [facility] clonazePAM 0.5 mg oral tablet 0.5 mg = 1 tab, PO, BID, PRN anxiety, # 60 tab, 0 Refill(s) No Longer Active 04/03/2020 [facility] methenamine hippurate 25 gm, P O, QAM & PM, 0 Refill(s) No Longer Active 04/03/2020 [facility] tamsulosin 0.4 mg oral capsule 0.4 mg = 1 cap, PO, QAM & PM, # 90 cap, 0 Refill(s) No Longer Active 04/03/2020 [facility] baclofen 10 mg oral tablet 10 mg = 1 tab, PO, QAM & PM, # 270 tab, 0 Refill(s) No Longer Active 04/03/2020 [facility] Glucotrol 2.5 mg, 0.5 tab, Rou te: PO, Drug form: TAB, Before Breakfast, Start date: 11/11/19 10:00:00 CHIEF PRIVACY OFFICER, Duration: 30 day, Stop date: 12/11/19 7:30:00 CHIEF PRIVACY OFFICER, 0 Inactive 11/11/2019 [facility] 200 ACTUAT Albuterol 0.09 MG/ACTUAT Mete red Dose Inhaler [ProAir HFA] 180 microgram = 2 puff, INHALATION, Domingo y, 0 Refill(s) Active 11/11/2019 [facility] Oxygen Oxygen, 1 btl, MISC, Be dtime, Refill(s) 0 Active 11/11/2019 [facility] ProAir HFA ProAir HFA, 1 - 2 p uffs, PO, Daily, Refill(s) 0 Active 11/11/2019 [facility] Acetaminophen 300 MG / Codeine Phosphate 30 MG Oral Tablet 1 tab, PO, Q6H, PRN Pain Score 7-10, # 3 0 tab, 0 Refill(s) Active 11/11/2019 [facility] 200 ACTUAT Albuterol 0.09 MG/ACTUAT Mete red Dose Inhaler [ProAir HFA] 180 microgram, 2 puff, Route: INHALATION , Drug Form: AERO/A, Dosing Weight 94.091, kg, Daily, Start date: 11/11/19 9:00:00 CHIEF PRIVACY OFFICER, Duration: 30 day, Stop date: 12/10/19 9:00:00 CHIEF PRIVACY OFFICER Inactive 11/11/2019 [facility] ProAir HFA ProAir HFA, 1 - 2 p uffs, Route: PO, Daily, 11/11/19 9:00:00 CHIEF PRIVACY OFFICER, Duration: 30 day, Stop date: 12/10/19 9:00:00 CHIEF PRIVACY OFFICER Inactive 11/11/2019 [facility] Allopurinol Notes: (Same as: Z yloprim) Inactive 11/11/2019 [facility] Aspirin 81 MG Enteric Coated Tablet Notes: Do not crush or chew. (Same As: Ecotrin) Inactive 11/11/2019 [facility] Bumetanide Notes: (Same As: [place]) Inactive 11/11/2019 [facility] Vitamin D3 1000 intl units oral tablet Notes: Same as : Vitamin D3 Inactive 11/11/2019 [facility] Clobetasol Propionate 0.0005 MG/MG Topical Ointment Notes: (clobetasol propionate 0.05% 15 gm top OIN) (Same As: Temovate) Inactive 11/11/2019 [facility] clopidogrel Notes: (Same As: P lavix) Inactive 11/11/2019 [facility] Colchicine 0.6 mg, 1 tab, Rout e: PO, Drug form: TAB, Daily, Dosing Weight 94.091, kg, Start date: 11/11/19 9:00:00 CHIEF PRIVACY OFFICER, Duration: 30 day, Stop date: 12/10/19 9:00:00 CHIEF PRIVACY OFFICER, 0 Inactive 11/11/2019 [facility] ferrous sulfate Notes: Give wi th food. "Do Not Crush" Inactive 11/11/2019 [facility] Metolazone 5 MG Oral Tablet No bharat: (Same as: Zaroxolyn) Inactive 11/11/2019 [facility] 24 HR mirabegron 50 MG Extended Release Tablet [Myrbetriq] 50 mg, 1 tab, Route: PO, Drug form: ERTA B, Daily, Dosing Weight 94.091, kg, Start date: 11/11/19 9:00:00 CHIEF PRIVACY OFFICER, Duration: 30 day, Stop date: 12/10/19 9:00:00 CHIEF PRIVACY OFFICER Inactive 11/11/2019 [facility] Prednisone Notes: (Same as: Pr edniSONE) Take with food. Inactive 11/11/2019 [facility] Xarelto Notes: (Same as: Xarel to) Administer with food Inactive 11/11/2019 [facility] Sertraline Notes: (Same as: Z oloft) Inactive 11/11/2019 [facility] Budesonide 0.25 MG/ML Inhalant Solution Notes: (Same As: Pulmicort) Inactive 11/11/2019 [facility] glimepiride 1 mg, 1 tab, Route : PO, Drug form: TAB, Breakfast, Dosing Weight 94.091, kg, Start date: 11/11/19 8:00:00 CHIEF PRIVACY OFFICER, Duration: 30 day, Stop date: 12/10/19 8:00:00 CHIEF PRIVACY OFFICER Inactive 11/11/2019 [facility] Thyroxine 100 microgram, 1 tab , Route: PO, Drug form: TAB, Q630AM, Dosing Weight 94.091, kg, Start date: 11/11/19 6:30:00 CHIEF PRIVACY OFFICER, Duration: 30 day, Stop date: 12/10/19 6:30:00 CHIEF PRIVACY OFFICER, 0 Inactive 11/11/2019 [facility] Triiodothyronine Notes: (Same as: Cytomel) Inactive 11/11/2019 [facility] Dilaudid Notes: Same as Dilaud id Inactive 11/11/2019 [facility] Fentanyl 25 microgram, Route: IV, ONCE, Dosing Weight 94.091, kg, Start date: 11/11/19 4:15:00 CHIEF PRIVACY OFFICER, Stop date: 11/11/19 4:15:00 CHIEF PRIVACY OFFICER Inactive 11/11/2019 [facility] Saline Flush 0.9% Notes: (Same as: BD Posiflush) No Longer Active 11/11/2019 [facility] Oxygen Oxygen, 1 btl, Route: M ISC, Bedtime, 11/10/19 21:00:00 CHIEF PRIVACY OFFICER, Duration: 30 day, Stop date: 12/09/19 21:00:00 CHIEF PRIVACY OFFICER No Longer Active 11/11/2019 [facility] Folic Acid 0.4 mg, 1 tab, Rout e: PO, Drug form: TAB, BID, Dosing Weight 94.091, kg, Start date: 11/10/19 21:00:00 CHIEF PRIVACY OFFICER, Duration: 30 day, Stop date: 12/10/19 9:00:00 CHIEF PRIVACY OFFICER, 0 No Longer Active 11/11/2019 [facility] Pramipexole 0.25 mg, 2 tab, Ro demetrio: PO, Drug form: TAB, Bedtime, Dosing Weight 94.091, kg, Start date: 11/10/19 21:00:00 CHIEF PRIVACY OFFICER, Duration: 30 day, Stop date: 12/09/19 21:00:00 CHIEF PRIVACY OFFICER No Longer Active 11/11/2019 [facility] ropinirole 0.5 mg, Route: PO, Drug form: TAB, Bedtime, Dosing Weight 94.091, kg, Start date: 11/10/19 21:00:00 CHIEF PRIVACY OFFICER, Duration: 30 day, Stop date: 12/09/19 21:00:00 CHIEF PRIVACY OFFICER No Longer Active 11/11/2019 [facility] Albuterol 0.83 MG/ML Inhalant Solution Notes: SEE RT DOCUMENTATION (Same as: Proventil) No Longer Active 11/11/2019 [facility] latanoprost Notes: Keep refrig erated. (Same as:Xalatan) Opened bottle may be stored at room temperature for 6 weeks No Longer Active 11/10/2019 [facility] 24 HR Metoprolol Tartrate 25 MG Extended Release Tablet [Toprol] Notes: (Same as: Toprol XL) Do Not Crush 12.5 mg = 1/2 x 25 mg TAB No Longer Active 11/10/2019 [facility] Potassium Chloride Notes: (Manfred e as: K-Dur 20) "Do Not Crush" Give with food and full glass of water For patients unable to swallow tablet, dissolve in one half glass of water. Allow about 2 minutes for the tab lets to disintegrate. Stir before giving to prepare slurry and administer. Please exclude Patients with feeding tube less than 14 [place] (Dobhoff, J-tube etc) and pediatric and patients. No Longer Active 11/10/2019 [facility] Alprazolam 0.5 MG Oral Tablet Notes: With food or milk (Same as: Xanax) No Longer Active 11/10/2019 [facility] Dulcolax Laxative Notes: (Same As: Dulcolax, Bisco-Lax) No Longer Active 11/10/2019 [facility] acetaminophen-codeine #3 Notes : Do not exceed 4gm/day of acetaminophen. (Same as: Tylenol with Codeine # 3) No Longer Active 11/10/2019 [facility] Saline Flush 0.9% Notes: (Same as: BD Posiflush) No Longer Active 11/10/2019 [facility] protamine (ANES) Route: IV, Dr ug form: INJ, ONCE, Stop date: 11/10/19 15:12:00 CHIEF PRIVACY OFFICER Inactive 11/10/2019 [facility] glycopyrrolate (ANES) Route: I V, Drug form: INJ, ONCE, Stop date: 11/10/19 15:12:00 CHIEF PRIVACY OFFICER Inactive 11/10/2019 [facility] neostigmine (ANES) Route: IV, Drug form: INJ, ONCE, Stop date: 11/10/19 15:12:00 CHIEF PRIVACY OFFICER Inactive 11/10/2019 [facility] norepinephrine (ANES) Route: I V, Drug form: INJ, ONCE, Stop date: 11/10/19 14:39:00 CHIEF PRIVACY OFFICER Inactive 11/10/2019 [facility] heparin (ANES) Route: IV, Drug form: INJ, ONCE, Stop date: 11/10/19 14:39:00 CHIEF PRIVACY OFFICER Inactive 11/10/2019 [facility] propofol (ANES) Route: IV, Tristan g form: INJ, ONCE, Stop date: 11/10/19 14:34:00 CHIEF PRIVACY OFFICER Inactive 11/10/2019 [facility] ceFAZolin (ANES) Route: IV, ug form: INJ, ONCE, Stop date: 11/10/19 14:34:00 CHIEF PRIVACY OFFICER Inactive 11/10/2019 [facility] lidocaine (ANES) Route: IV, Dr ug form: INJ, ONCE, Stop date: 11/10/19 14:18:00 CHIEF PRIVACY OFFICER Inactive 11/10/2019 [facility] rocuronium (ANES) Route: IV, D rug form: INJ, ONCE, Stop date: 11/10/19 14:18:00 CHIEF PRIVACY OFFICER Inactive 11/10/2019 [facility] fentaNYL (ANES) Route: IV, Tristan g form: INJ, ONCE, Stop date: 11/10/19 14:18:00 CHIEF PRIVACY OFFICER Inactive 11/10/2019 [facility] Fentanyl Notes: (Same as: Subl imaze) Preservative free. No Longer Active 11/10/2019 [facility] Hydromorphone Notes: Same as D ilaudid No Longer Active 11/10/2019 [facility] Flumazenil Notes: (Same as: Ro mazicon) No Longer Active 11/10/2019 [facility] Naloxone Notes: Same as Narcan No Longer Active 11/10/2019 [facility] Diphenhydramine Notes: (Same a s: Benadryl) No Longer Active 11/10/2019 [facility] Ondansetron Notes: (Same as: Rosanna santamaria) MEDICATION WASTE Product Size: 4 mg Product Wasted: ___ mg No Longer Active 11/10/2019 [facility] norepinephrine (ANES) 10 microgram Route: IV, Drug form: INJ, Start date: 11/10/19 13:51:00 CHIEF PRIVACY OFFICER, Stop date: 11/10/19 14:51:00 CHIEF PRIVACY OFFICER Inactive 11/10/2019 [facility] Sodium Chloride 0.9% IV (ANES) 1000 mL Route: IV, Total Volume: 1,000, Start date: 11/10/19 13:29:00 CHIEF PRIVACY OFFICER, Stop date: 11/10/19 14:29:00 CHIEF PRIVACY OFFICER Inactive 11/10/2019 [facility] methenamine hippurate 1 g oral tablet 1 gm = 1 tab, PO, BID, 0 Refill(s) Active 11/10/2019 [facility] Metolazone 5 MG Oral Tablet 5 mg = 1 tab, PO, Daily, 0 Refill(s) Active 11/10/2019 [facility] predniSONE 10 mg oral tablet 1 0 mg = 1 tab, PO, Daily, 3 Refill(s) Active 11/10/2019 [facility] ferrous sulfate 325 mg oral enteric coated tablet 325 mg = 1 tab, PO, Daily, 0 Refill(s) Active 11/10/2019 [facility] glimepiride 1 mg oral tablet 1 mg = 1 tab, PO, Breakfast, 0 Refill(s) Active 11/10/2019 [facility] Albuterol 0.83 MG/ML Inhalant Solution 2.5 mg = 3 mL, NEB, BID, am/pm, 0 Refill(s) Active 11/10/2019 [facility] Sodium Chloride 0.9% IV 1,000 mL 1,000 ml, Rate: 50 ml/hr, Infuse over: 20 hr, Route: IV, Dosing Weight 94.091 kg, Total Volume: 1,000, Start date: 11/10/19 10:52:00 CHIEF PRIVACY OFFICER, Duration: 30 day, Stop date: 12/10/19 10:51:00 CHIEF PRIVACY OFFICER, 2.16, m2, 0 No Longer Active 11/10/2019 [facility] Bacitracin 0.5 UNT/MG / Polymyxin B 10 U NT/MG Topical Ointment 1 appl, TOP, QID, # 30 gm, 0 Refill(s) Active 10/17/2019 [facility] Albuterol 0.83 MG/ML Inhalant Solution Notes: SEE RT DOCUMENTATION (Same as: Madhuri) Inactive 10/17/2019 [facility] Bacitracin 0.5 UNT/MG Topical Ointment 1 appl, Route: TOP, ONCE, Drug form: OINT, Start date: 10/16/19 18:58:00 CHIEF PRIVACY OFFICER, Stop date: 10/16/19 18:58:00 CHIEF PRIVACY OFFICER, 0 Inactive 10/17/2019 [facility] 24 HR mirabegron 50 MG Extended Release Tablet [Myrbetriq] 50 mg = 1 tab, PO, Daily, # 90 tab, 1 Re fill(s), Pharmacy: [id number] Active 06/02/2019 [facility] Levofloxacin 500 MG Oral Tablet [Levaquin] 500 mg = 1 tab, PO, Q24H, X 7 day, # 7 tab, 0 Refill(s), Pharmacy: [facility] [id number] Active 05/18/2019 [facility] allopurinol 300 mg oral tablet 300 mg = 1 tab, PO, Daily, # 90 tab, 1 Refill(s) Active 04/19/2019 [facility] methenamine hippurate 1 gm, PO , Daily, 0 Refill(s) Active 04/19/2019 [facility] Dulcolax Laxative = 1 supp, [place] , Daily, PRN constipation, # 5 supp, 0 Refill(s) Active 04/19/2019 [facility] Colchicine 0.6 mg, PO, Daily, 0 Refill(s) Active 04/19/2019 [facility] Fosfomycin 33.3 MG/ML Oral Suspension [Monurol] = 1 Pack, PO, ONCE, # 3 gm, 0 Refill(s), Pharmacy: [facility] [id number] Active 12/03/[facility] Hydrochlorothiazide 50 MG / Spironolacto ne 50 MG Oral Tablet [Aldactazide] 1 tab, PO, PRN, 0 Refill(s) Active 11/30/2018 [facility] baclofen 10 mg oral tablet 10 mg = 1 tab, PO, TID, # 90 tab, 0 Refill(s) Active 11/30/2018 [facility] Budesonide 0.25 MG/ML Inhalant Solution 0.5 mg = 2 mL, NEB, Daily, # 60 ea, 11 Refill(s) Active 11/30/2018 [facility] carisoprodol 350 mg oral tablet 350 mg = 1 tab, PO, TID, PRN Muscle Spasms, # 42 tab, 0 Refill(s) Active 11/30/2018 [facility] Clobetasol Propionate 0.0005 MG/MG Topical Ointment TOP, Daily, 0 Refill(s) Active 11/30/2018 [facility] clopidogrel 75 mg oral tablet 75 mg [...] # 30 tab, 0 Refill(s) Active 11/30/2018 [facility] hydromorphone 8 mg oral tablet 8 mg = 1 tab, PO, BID, PRN Pain, 0 Refill(s) Active 11/30/2018 [facility] Sodium Chloride 1.2 MEQ/ML Inhalant Solu tion [Hyper-Lamine] PRN, 0 Refill(s) Active 11/30/2018 [facility] Oxygen 1 btl, MISC, Bedtime, # 1 btl, 0 Refill(s) Active 11/30/2018 [facility] pantoprazole 40 mg oral enteric coated tablet 40 mg = 1 tab, PO, Daily, # 30 tab, 0 Refill(s) Active 11/30/2018 [facility] Potassium Chloride 20 mEq, BID , 0 Refill(s) Active 11/30/2018 [facility] pramipexole 0.125 mg oral tablet 0.125 mg = 1 tab, PO, Bedtime, # 30 tab, 1 Refill(s) Active 11/30/2018 [facility] 200 ACTUAT Albuterol 0.09 MG/ACTUAT Mete red Dose Inhaler [ProAir HFA] 2 puff, INHALATION, Daily, 0 Refill(s) Active 11/30/2018 [facility] non-formulary RAPATHA INJECTIO N 140MG Q2WEEK, Refill(s) 0 Active 11/30/2018 [facility] rOPINIRole 0.5 mg oral tablet 0.5 mg = 1 tab, PO, Bedtime, # 30 tab, 1 Refill(s) Active 11/30/2018 [facility] sertraline 50 mg oral tablet 5 0 mg = 1 tab, PO, Daily, # 30 tab, 0 Refill(s) Active 11/30/2018 [facility] rivaroxaban 15 MG Oral Tablet [Xarelto] 15 mg = 1 tab, PO, Daily, # 90 tab, 3 Refill(s) Active 11/30/2018 [facility] Aspirin 81 MG Enteric Coated Tablet 81 mg = 1 tab, PO, Daily, # 90 tab, 3 Refill(s) Active 11/30/2018 [facility] Folic Acid 400 MCG, BID, 0 Ref ill(s) Active 11/30/2018 [facility] Mucus Relief DM PO, BID, 0 Ref ill(s) Active 11/30/2018 [facility] Vitamin B12 Methylcobalamin SL , qWeek, 0 Refill(s) Active 11/30/2018 [facility] Vitamin D3 2000 intl units oral capsule 2,000 IntlUnit = 1 cap, PO, Daily, # 100 cap, 3 Refill(s) Active 11/30/2018 [facility] 24 HR mirabegron 50 MG Extended Release Tablet [Myrbetriq] See Instructions, TAKE 1 TABLET BY MOUTH EVERY DAY, # 90 tab, 0 Refill(s), [facility] [id number], please have patient call for appt prior to next refill Active 11/05/2018 [facility] Allergies, Adverse Reactions, Alerts Substance Category Reaction Severity Reaction type Status Date Reported Comments Source No Known Medication Allergies Assertion Drug aller gy [facility] Lyrica<sup>1</sup> Assertion Drug allergy Active RASH [facility] Immunizations Immunization Date Given Site Status Last Updated Comments Source diphtheria/pertussis, acel/tetanus adult 10/17/2019 Right deltoid completed [facility] Results Order Name Results Value Reference Range Date Interpretation Comments Source ELECTROLYTES Potassium Lvl 3.2 3.5 - 5.1 04/20/2020 [facility] CHEM PANEL Magnesium Lvl 2.0 1.8 - 2.4 04/20/2020 [facility] CHEM PANEL Glucose Lvl 103 70 - 99 04/20/2020 [facility] CHEM PANEL BUN 39 7 - 22 04/20/2020 [facility] CHEM PANEL Creatinine Lvl 1.56 0.50 - 1.40 04/20/2020 [facility] CHEM PANEL Sodium Lvl 136 135 - 145 04/20/2020 [facility] CHEM PANEL Potassium Lvl 2.8 3.5 - 5.1 04/20/2020 Result Comment: Critical Result(s) harrison d to Aidenyecenia Cerda at 04/20/2020 07:23 by ANNABELLE. Read back OK. [facility] CHEM PANEL Chloride Lvl 97 95 - 109 04/20/2020 [facility] CHEM PANEL CO2 33 24 - 32 04/20/2020 [facility] CHEM PANEL AGAP 8.8 10.0 - 20.0 04/20/2020 [facility] CHEM PANEL Calcium Lvl 8.3 8.5 - 10.5 04/20/2020 [facility] CHEM PANEL eGFR 43 04/20/2020 Result [...] the estimated BMI. [facility] RBC Morph Kay l (04/20/20 6:15 AM) Normal 04/20/2020 [facility] Plt Morph Kay l (04/20/20 6:15 AM) Normal 04/20/2020 [facility] Segs 73.4 45.0 - 75.0 04/20/2020 [facility] Lymphocytes 16.9 20.0 - 40.0 04/20/2020 [facility] Monocytes 7.8 2.0 - 12.0 04/20/2020 [facility] Eosinophils 1.0 0.0 - 4.0 04/20/2020 [facility] Basophils 0.9 0.0 - 1.0 04/20/2020 [facility] Neutrophils # 3.5 1.5 - 8.1 04/20/2020 [facility] Lymphocytes # 0.8 1.0 - 5.5 04/20/2020 [facility] Monocytes # 0.4 0.0 - 0.8 04/20/2020 [facility] Eosinophils # 0.1 0.0 - 0.5 04/20/2020 [facility] WBC 4.8 3.7 - 10.4 04/20/2020 [facility] RBC 4.39 4.70 - 6.10 04/20/2020 [facility] Hgb 12.1 14.0 - 18.0 04/20/2020 [facility] Hct 38.3 42.0 - 54.0 04/20/2020 [facility] MCV 87.2 80.0 - 94.0 04/20/2020 [facility] MCH 27.5 27.0 - 31.0 04/20/2020 [facility] MCHC 31.5 32.0 - 36.0 04/20/2020 [facility] RDW 19.6 11.5 - 14.5 04/20/2020 [facility] Platelet 183 133 - 450 04/20/2020 [facility] HEMATOLOGY MPV 8.0 7.4 - 10.4 04/20/2020 [facility] TOXICOLOGY Vanco Tr 17.2 04/19/2020 [facility] TOXICOLOGY Vanco Tr TND 1330 04/19/2020 [facility] CHEM PANEL Glucose Lvl 83 70 - 99 04/19/2020 [facility] CHEM PANEL BUN 36 7 - 22 04/19/2020 [facility] CHEM PANEL Creatinine Lvl 1.50 0.50 - 1.40 04/19/2020 [facility] CHEM PANEL Sodium Lvl 138 135 - 145 04/19/2020 [facility] CHEM PANEL Potassium Lvl 3.1 3.5 - 5.1 04/19/2020 [facility] CHEM PANEL Chloride Lvl 100 95 - 109 04/19/2020 [facility] CHEM PANEL CO2 35 24 - 32 04/19/2020 [facility] CHEM PANEL Calcium Lvl 9.2 8.5 - 10.5 04/19/2020 [facility] CHEM PANEL AGAP 6.1 10.0 - 20.0 04/19/2020 [facility] CHEM PANEL eGFR 45 04/19/2020 Result [...] should be multiplied by the estimated BMI. [facility] CHEM PANEL Magnesium Lvl 1.6 1.8 - 2.4 04/19/2020 [facility] CHEM PANEL Phosphorus 3.4 2.5 - 4.5 04/19/2020 [facility] HEMATOLOGY Plt Morph Kay l (04/19/20 5:04 AM) Normal 04/19/2020 [facility] HEMATOLOGY Segs 76.2 45.0 - 75.0 04/19/2020 [facility] HEMATOLOGY Lymphocytes 15.3 20.0 - 40.0 04/19/2020 [facility] HEMATOLOGY Monocytes 7.2 2.0 - 12.0 04/19/2020 [facility] HEMATOLOGY Eosinophils 0.6 0.0 - 4.0 04/19/2020 [facility] HEMATOLOGY Basophils 0.7 0.0 - 1.0 04/19/2020 [facility] HEMATOLOGY Neutrophils # 3.5 1.5 - 8.1 04/19/2020 [facility] HEMATOLOGY Lymphocytes # 0.7 1.0 - 5.5 04/19/2020 [facility] HEMATOLOGY Monocytes # 0.3 0.0 - 0.8 04/19/2020 [facility] HEMATOLOGY Hypochrom 1+ (04/19/20 5:04 AM) None Seen 04/19/2020 [facility] HEMATOLOGY WBC 4.6 3.7 - 10.4 04/19/2020 [facility] HEMATOLOGY RBC 4.73 4.70 - 6.10 04/19/2020 [facility] Hgb 12.8 14.0 - 18.0 04/19/2020 [facility] HEMATOLOGY Hct 41.5 42.0 - 54.0 04/19/2020 [facility] MCV 87.8 80.0 - 94.0 04/19/2020 [facility] MCH 27.1 27.0 - 31.0 04/19/2020 [facility] MCHC 30.8 32.0 - 36.0 04/19/2020 [facility] RDW 19.5 11.5 - 14.5 04/19/2020 [facility] Platelet 194 133 - 450 04/19/2020 [facility] MPV 7.8 7.4 - 10.4 04/19/2020 [facility] CHEM PANEL Glucose Lvl 77 70 - 99 04/18/2020 [facility] CHEM PANEL BUN 41 7 - 22 04/18/2020 [facility] CHEM PANEL Creatinine Lvl 1.60 0.50 - 1.40 04/18/2020 [facility] CHEM PANEL Sodium Lvl 138 135 - 145 04/18/2020 [facility] CHEM PANEL Chloride Lvl 98 95 - 109 04/18/2020 [facility] CHEM PANEL CO2 37 24 - 32 04/18/2020 [facility] CHEM PANEL AGAP 6.0 10.0 - 20.0 04/18/2020 [facility] CHEM PANEL Calcium Lvl 9.0 8.5 - 10.5 04/18/2020 [facility] CHEM PANEL eGFR 42 04/18/2020 Result [...] should be multiplied by the estimated BMI. [facility] CHEM PANEL Magnesium Lvl 2.1 1.8 - 2.4 04/18/2020 [facility] HEMATOLOGY WBC 4.8 3.7 - 10.4 04/18/2020 [facility] HEMATOLOGY RBC 4.57 4.70 - 6.10 04/18/2020 [facility] Hgb 12.5 14.0 - 18.0 04/18/2020 [facility] Hct 40.3 42.0 - 54.0 04/18/2020 [facility] MCV 88.3 80.0 - 94.0 04/18/2020 [facility] MCH 27.3 27.0 - 31.0 04/18/2020 [facility] MCHC 30.9 32.0 - 36.0 04/18/2020 [facility] RDW 19.9 11.5 - 14.5 04/18/2020 [facility] Platelet 196 133 - 450 04/18/2020 [facility] MPV 7.9 7.4 - 10.4 04/18/2020 [facility] Plt Morph Kay l (04/18/20 6:25 AM) Normal 04/18/2020 [facility] HEMATOLOGY Segs 73.6 45.0 - 75.0 04/18/2020 [facility] Lymphocytes 17.5 20.0 - 40.0 04/18/2020 [facility] Monocytes 8.1 2.0 - 12.0 04/18/2020 [facility] HEMATOLOGY Eosinophils 0.3 0.0 - 4.0 04/18/2020 [facility] HEMATOLOGY Basophils 0.5 0.0 - 1.0 04/18/2020 [facility] HEMATOLOGY Neutrophils # 3.6 1.5 - 8.1 04/18/2020 [facility] HEMATOLOGY Lymphocytes # 0.8 1.0 - 5.5 04/18/2020 [facility] HEMATOLOGY Monocytes # 0.4 0.0 - 0.8 04/18/2020 [facility] HEMATOLOGY Anisocyte 1+ *ABN* (04/18/20 6:25 AM) None Seen 04/18/2020 [facility] HEMATOLOGY Hypochrom 1+ (04/18/20 6:25 AM) None Seen 04/18/2020 [facility] TOXICOLOGY Vanco Lvl 15.8 04/17/2020 [facility] TOXICOLOGY Vanco Lvl 17.9 04/16/2020 [facility] CARDIAC ENZYMES BNP 420 <=100 pg/mL 04/15/2020 [facility] CHEM PANEL Phosphorus 3.1 2.5 - 4.5 04/15/2020 [facility] Basophils # 0.1 0.0 - 0.2 04/15/2020 [facility] Hypochrom 1+ (04/15/20 5:56 AM) None Seen 04/15/2020 [facility] TOXICOLOGY Vanco Lvl 25.5 04/14/2020 [facility] BACTERIAL - SEROLOGY MRSA by PCR Negative (04/14/20 7:47 AM) 04/14/2020 [facility] CARDIAC ENZYMES Troponin-I 0.13 0.00 - 0.40 04/14/2020 [facility] CHEM PANEL Phosphorus 4.5 2.5 - 4.5 04/14/2020 [facility] Sed Rate 54 0 - 15 04/14/2020 [facility] C-REACTIVE PROTEIN 106.0 <=2.9 mg/L 04/14/2020 [facility] CARDIAC ENZYMES Troponin-I 0.15 0.00 - 0.40 04/13/2020 [facility] IMMUNOLOGY Spec Type (UPE) rando m, 100x 04/13/2020 [facility] IMMUNOLOGY Tot Prot (UPE) 31 04/13/2020 [facility] IMMUNOLOGY Interp (UPE) Urine protein consists primarily of albumin. No monoclonal bands are identified. Interpretation performed at [facility]. 04/13/2020 [facility] URINE AND STOOL UA Turbidity Slight *ABN* (04/13/20 5:27 PM) Clear 04/13/2020 [facility] URINE AND STOOL UA Spec Grav 1.017 <=1.030 04/13/2020 [facility] URINE AND STOOL UA pH 5.0 5.0 - 8.0 04/13/2020 [facility] URINE AND STOOL UA Protein Negative mg/dL Negative mg/dL 04/13/2020 [facility] URINE AND STOOL UA Glucose Negative mg/dL Negative mg/dL 04/13/2020 [facility] URINE AND STOOL UA Ketones Negative mg/dL Negative mg/dL 04/13/2020 [facility] URINE AND STOOL UA Bili Negative *NA* (04/13/20 5:27 PM) Negative 04/13/2020 [facility] URINE AND STOOL UA Blood Negative (04/13/20 5:27 PM) Negative 04/13/2020 [facility] URINE AND STOOL UA Nitrite Positive *ABN* (04/13/20 5:27 PM) Negative 04/13/2020 [facility] URINE AND STOOL UA Leuk Est Negative (04/13/20 5:27 PM) Negative 04/13/2020 [facility] URINE AND STOOL UA Sq Epi Occasional /LPF Few /LPF 04/13/2020 [facility] URINE AND STOOL UA WBC 2 0 - 5 04/13/2020 [facility] URINE AND STOOL UA RBC 1 0 - 2 04/13/2020 [facility] URINE AND STOOL UA Bacteria Occasional /HPF None Seen /HPF 04/13/2020 [facility] URINE AND STOOL UA Hyal Cast 83 0 - 2 04/13/2020 [facility] URINE AND STOOL UA Color Demi 04/13/2020 [facility] URINE AND STOOL UA Urobilinogen <=1.0 mg/dL 0.1 - 1.0 04/13/2020 [facility] URINE CHEM U Prot/Creat 0.17 04/13/2020 [facility] URINE CHEM U Creatinine 206.00 04/13/2020 [facility] URINE CHEM U Sodium 12 04/13/2020 [facility] URINE CHEM U Protein 36.0 04/13/2020 [facility] URINE CHEM U Eos None Seen (04/13/20 5:27 PM) None Seen 04/13/2020 [facility] CARDIAC ENZYMES BNP 443 <=100 pg/mL 04/13/2020 [facility] CARDIAC ENZYMES Total CK 81 12 - 191 04/13/2020 [facility] CARDIAC ENZYMES Troponin-I 0.06 0.00 - 0.40 04/13/2020 [facility] CHEM PANEL Procalcitonin Lvl 0.58 0.00 - 0.10 04/13/2020 [facility] CHEM PANEL Total Protein 6.1 6.4 - 8.4 04/13/2020 [facility] CHEM PANEL Albumin Lvl 2.6 3.5 - 5.0 04/13/2020 [facility] CHEM PANEL ALT 21 0 - 65 04/13/2020 [facility] CHEM PANEL AST 25 0 - 37 04/13/2020 [facility] CHEM PANEL Alk Phos 75 39 - 136 04/13/2020 [facility] CHEM PANEL Bili Total 0.5 0.2 - 1.3 04/13/2020 [facility] CHEM PANEL B/C Ratio 23 6 - 25 04/13/2020 [facility] CHEM PANEL Globulin 3.5 2.7 - 4.2 04/13/2020 [facility] CHEM PANEL A/G Ratio 0.7 0.7 - 1.6 04/13/2020 [facility] CHEM PANEL Lactic Acid Lvl 2.0 0.5 - 2.2 04/13/2020 [facility] HEMATOLOGY D-Dimer 0.94 04/13/2020 [facility] HEMATOLOGY PT 13.2 12.0 - 14.7 04/13/2020 [facility] HEMATOLOGY INR 1.00 0.85 - 1.17 04/13/2020 [facility] HEMATOLOGY PTT 28.1 22.9 - 35.8 04/13/2020 [facility] DIAGNOSTIC S. aureus Not Detected (04/13/20 10:56 AM) Not Detected 04/13/2020 [facility] DIAGNOSTIC S. epidermidis Detected *ABN* (04/13/20 10:56 AM) Not Detected 04/13/2020 [facility] S. lugdunensis Not Detected (04/13/20 10:56 AM) Not Detected 04/13/2020 [facility] DIAGNOSTIC S. anginosus gr p Not Detected (04/13/20 10:56 AM) Not Detected 04/13/2020 [facility] DIAGNOSTIC S. agalactiae Not Detected (04/13/20 10:56 AM) Not Detected 04/13/2020 [facility] DIAGNOSTIC S. pneumoniae Not Detected (04/13/20 10:56 AM) Not Detected 04/13/2020 [facility] DIAGNOSTIC S. pyogenes Not Detected (04/13/20 10:56 AM) Not Detected 04/13/2020 [facility] DIAGNOSTIC E. faecalis Not Detected (04/13/20 10:56 AM) Not Detected 04/13/2020 [facility] E. faecium Not Detected (04/13/20 10:56 AM) Not Detected 04/13/2020 [facility] Staphylococcus spp. Detected *ABN* (04/13/20 10:56 AM) Not Detected 04/13/2020 [facility] Streptococcus s pp. Not Detected (04/13/20 10:56 AM) Not Detected 04/13/2020 [facility] Listeria spp. Not Detected (04/13/20 10:56 AM) Not Detected 04/13/2020 [facility] mecA Methicilli n Resistance Detected *ABN* (04/13/20 10:56 AM) Not Detected 04/13/2020 [facility] Daisha Vancomycin Resistance Not Detected (04/13/20 10:56 AM) Not Detected 04/13/2020 [facility] vanB Vancomycin Resistance Not Detected (04/13/20 10:56 AM) Not Detected 04/13/2020 [facility] TOXICOLOGY Vanco Tr 17.9 04/12/2020 [facility] TOXICOLOGY Vanco Tr TND 1930 04/12/2020 [facility] CHEM PANEL Glucose Lvl 108 70 - 99 04/10/2020 [facility] CHEM PANEL BUN 64 7 - 22 04/10/2020 [facility] CHEM PANEL Creatinine Lvl 1.77 0.50 - 1.40 04/10/2020 [facility] CHEM PANEL Sodium Lvl 136 135 - 145 04/10/2020 [facility] CHEM PANEL Potassium Lvl 3.7 3.5 - 5.1 04/10/2020 [facility] CHEM PANEL Chloride Lvl 91 95 - 109 04/10/2020 [facility] CHEM PANEL CO2 42 24 - 32 04/10/2020 Result Comment: Critical Result(s) called to Margarette Mathew at 04/10/2020 06:21 by . Read back OK. [facility] CHEM PANEL AGAP 6.7 10.0 - 20.0 04/10/2020 [facility] CHEM PANEL Calcium Lvl 9.2 8.5 - 10.5 04/10/2020 [facility] CHEM PANEL eGFR 37 04/10/2020 Result Comment: [...] should be multiplied by the estimated BMI. [facility] TOXICOLOGY Vanco Tr 17.8 04/10/2020 [facility] TOXICOLOGY Vanco Tr TND 2000 04/10/2020 [facility] CHEM PANEL Glucose Lvl 136 70 - 99 04/09/2020 [facility] CHEM PANEL BUN 69 7 - 22 04/09/2020 [facility] CHEM PANEL Creatinine Lvl 2.00 0.50 - 1.40 04/09/2020 [facility] CHEM PANEL Sodium Lvl 137 135 - 145 04/09/2020 [facility] CHEM PANEL Potassium Lvl 4.1 3.5 - 5.1 04/09/2020 [facility] CHEM PANEL Chloride Lvl 91 95 - 109 04/09/2020 [facility] CHEM PANEL CO2 35 24 - 32 04/09/2020 [facility] CHEM PANEL AGAP 15.1 10.0 - 20.0 04/09/2020 [facility] CHEM PANEL Calcium Lvl 9.5 8.5 - 10.5 04/09/2020 [facility] CHEM PANEL eGFR 32 04/09/2020 Result Comment: [...] should be multiplied by the estimated BMI. [facility] TOXICOLOGY Vanco Lvl 16.5 04/08/2020 [facility] CHEM PANEL Glucose Lvl 194 70 - 99 04/08/2020 [facility] CHEM PANEL BUN 65 7 - 22 04/08/2020 [facility] CHEM PANEL Creatinine Lvl 1.88 0.50 - 1.40 04/08/2020 [facility] CHEM PANEL Sodium Lvl 135 135 - 145 04/08/2020 [facility] CHEM PANEL Potassium Lvl 2.8 3.5 - 5.1 04/08/2020 Result Comment: Critical Result(s) harrison d to Filippo Gaona at 04/08/2020 11:26 by RG. Read back OK. [facility] CHEM PANEL Chloride Lvl 85 95 - 109 04/08/2020 [facility] CHEM PANEL CO2 43 24 - 32 04/08/2020 Result Comment: Critical Result(s) called to Filippo Gaona at 04/08/2020 11:27 by RG. Read back OK. [facility] CHEM PANEL AGAP 9.8 10.0 - 20.0 04/08/2020 [facility] CHEM PANEL Calcium Lvl 9.1 8.5 - 10.5 04/08/2020 [facility] CHEM PANEL eGFR 34 04/08/2020 Result Comment: [...] should be multiplied by the estimated BMI. [facility] HEMATOLOGY WBC 7.3 3.7 - 10.4 04/08/2020 [facility] HEMATOLOGY RBC 4.74 4.70 - 6.10 04/08/2020 [facility] HEMATOLOGY Hgb 12.8 14.0 - 18.0 04/08/2020 [facility] HEMATOLOGY Hct 41.2 42.0 - 54.0 04/08/2020 [facility] HEMATOLOGY MCV 86.8 80.0 - 94.0 04/08/2020 [facility] HEMATOLOGY MCH 27.0 27.0 - 31.0 04/08/2020 [facility] HEMATOLOGY MCHC 31.1 32.0 - 36.0 04/08/2020 [facility] HEMATOLOGY RDW 20.1 11.5 - 14.5 04/08/2020 [facility] HEMATOLOGY Platelet 156 133 - 450 04/08/2020 [facility] HEMATOLOGY MPV 7.4 7.4 - 10.4 04/08/2020 [facility] HEMATOLOGY Segs 83.0 45.0 - 75.0 04/08/2020 [facility] HEMATOLOGY Lymphocytes 11.0 20.0 - 40.0 04/08/2020 [facility] HEMATOLOGY Monocytes 5.3 2.0 - 12.0 04/08/2020 [facility] HEMATOLOGY Eosinophils 0.3 0.0 - 4.0 04/08/2020 [facility] HEMATOLOGY Basophils 0.4 0.0 - 1.0 04/08/2020 [facility] HEMATOLOGY Neutrophils # 6.1 1.5 - 8.1 04/08/2020 [facility] HEMATOLOGY Lymphocytes # 0.8 1.0 - 5.5 04/08/2020 [facility] HEMATOLOGY Monocytes # 0.4 0.0 - 0.8 04/08/2020 [facility] URINE AND STOOL POC UA Color Yellow *NA* (04/04/20 2:09 PM) Yellow 04/04/2020 [facility] URINE AND STOOL POC UA Turbidity Clear *NA* (04/04/20 2:09 PM) Clear 04/04/2020 [facility] URINE AND STOOL POC UA SG 1.015 <=1.030 04/04/2020 [facility] URINE AND STOOL POC UA pH 6.0 5.0 - 8.0 04/04/2020 [facility] URINE AND STOOL POC UA Prot Negative mg/dL Negative mg/dL 04/04/2020 [facility] URINE AND STOOL POC UA Glu 250 mg/dL Negative mg/dL 04/04/2020 [facility] URINE AND STOOL POC UA Ket Negative mg/dL Negative mg/dL 04/04/2020 [facility] URINE AND STOOL POC UA Bili Negative *NA* (04/04/20 2:09 PM) Negative 04/04/2020 [facility] URINE AND STOOL POC UA Bld Negative *NA* (04/04/20 2:09 PM) Negative 04/04/2020 [facility] URINE AND STOOL POC UA Uro 0.2 0.1 - 1.0 04/04/2020 [facility] URINE AND STOOL POC UA Nit Negative *NA* (04/04/20 2:09 PM) Negative 04/04/2020 [facility] URINE AND STOOL POC UA LeukEst Trace *ABN* (04/04/20 2:09 PM) Negative 04/04/2020 [facility] IMMUNOLOGY Coronavirus (COVID-19) NA A Not Detected (04/04/20 10:15 AM) Not Detected 04/04/2020 [facility] BLOOD BANK RESULTS ABO/Rh O POS 04/03/2020 [facility] BLOOD BANK RESULTS Antibody Scrn Negative (04/03/20 2:17 PM) 04/03/2020 [facility] CHEM PANEL B/C Ratio 41 6 - 25 04/03/2020 [facility] CHEM PANEL Total Protein 6.5 6.4 - 8.4 04/03/2020 [facility] CHEM PANEL Albumin Lvl 3.3 3.5 - 5.0 04/03/2020 [facility] CHEM PANEL Globulin 3.2 2.7 - 4.2 04/03/2020 [facility] CHEM PANEL A/G Ratio 1.0 0.7 - 1.6 04/03/2020 [facility] CHEM PANEL ALT 25 0 - 65 04/03/2020 [facility] CHEM PANEL AST 17 0 - 37 04/03/2020 [facility] CHEM PANEL Alk Phos 105 39 - 136 04/03/2020 [facility] CHEM PANEL Bili Total 0.5 0.2 - 1.3 04/03/2020 [facility] HEMATOLOGY WBC 7.9 3.7 - 10.4 04/03/2020 [facility] HEMATOLOGY RBC 4.91 4.70 - 6.10 04/03/2020 [facility] HEMATOLOGY Hgb 13.5 14.0 - 18.0 04/03/2020 [facility] HEMATOLOGY Hct 42.7 42.0 - 54.0 04/03/2020 [facility] HEMATOLOGY MCV 86.8 80.0 - 94.0 04/03/2020 [facility] HEMATOLOGY MCH 27.4 27.0 - 31.0 04/03/2020 [facility] HEMATOLOGY MCHC 31.6 32.0 - 36.0 04/03/2020 [facility] HEMATOLOGY RDW 19.5 11.5 - 14.5 04/03/2020 [facility] HEMATOLOGY Platelet 184 133 - 450 04/03/2020 [facility] HEMATOLOGY MPV 7.7 7.4 - 10.4 04/03/2020 [facility] HEMATOLOGY R-time 5.0 5.0 - 10.0 04/03/2020 [facility] HEMATOLOGY K-time 1.4 1.0 - 3.0 04/03/2020 [facility] HEMATOLOGY Angle 67.5 53.0 - 72.0 04/03/2020 [facility] HEMATOLOGY Max Amp 65.7 50.0 - 70.0 04/03/2020 [facility] HEMATOLOGY G-value 9.6 4.5 - 11.0 04/03/2020 [facility] HEMATOLOGY Ly30 0.0 0.0 - 7.5 04/03/2020 [facility] HEMATOLOGY Coag Index 1.6 -3.0-3.0 - 3.0 04/03/2020 [facility] HEMATOLOGY TEG Data See N ote (04/03/20 2:17 PM) 04/03/2020 [facility] HEMATOLOGY TEG Interp Throm belastograph results are within reference ranges. These indicate adequate hemostasis. Note that TEG does not show effect of NSAIDs or P2Y12 inhibitors. CPT:12231 04/03/2020 [facility] HEMATOLOGY Neutrophils # 6.6 1.5 - 8.1 04/03/2020 [facility] HEMATOLOGY Lymphocytes # 0.6 1.0 - 5.5 04/03/2020 [facility] HEMATOLOGY Monocytes # 0.5 0.0 - 0.8 04/03/2020 [facility] HEMATOLOGY Eosinophils # 0.1 0.0 - 0.5 04/03/2020 [facility] HEMATOLOGY Segs 83.0 45.0 - 75.0 04/03/2020 [facility] HEMATOLOGY Bands 0.0 0.0 - 11.0 04/03/2020 [facility] HEMATOLOGY Lymphocytes 8.0 20.0 - 40.0 04/03/2020 [facility] HEMATOLOGY Monocytes 6.0 2.0 - 12.0 04/03/2020 [facility] HEMATOLOGY Eosinophils 1.0 0.0 - 4.0 04/03/2020 [facility] HEMATOLOGY Metamyelocytes 1.0 0.0 - 1.0 04/03/2020 [facility] HEMATOLOGY Myelocytes 1.0 <=0.0 % 04/03/2020 [facility] HEMATOLOGY Atypical Lymphs 0.0 <=0.0 % 04/03/2020 [facility] HEMATOLOGY NRBC 1 04/03/2020 [facility] HEMATOLOGY Plt Morph Kay l (04/03/20 2:17 PM) Normal 04/03/2020 [facility] HEMATOLOGY Anisocyte 1+ *ABN* (04/03/20 2:17 PM) None Seen 04/03/2020 [facility] HEMATOLOGY Polychrom Slight 04/03/2020 [facility] IMMUNOLOGY C-REACTIVE PROTEIN 23.6 <=2.9 mg/L 04/03/2020 [facility] SPECIAL CHEMISTRY Hgb A1C 8.1 <=5.6 % 04/03/2020 [facility] HEMATOLOGY PT 13.6 12.0 - 14.7 11/10/2019 [facility] HEMATOLOGY INR 1.04 0.85 - 1.17 11/10/2019 [facility] HEMATOLOGY PTT 25.1 22.9 - 35.8 11/10/2019 [facility] BLOOD BANK RESULTS ABO/Rh O POS 11/10/2019 [facility] BLOOD BANK RESULTS Antibody Scrn Negative (11/10/19 10:59 AM) 11/10/2019 [facility] BLOOD BANK RESULTS RBC product Product available (11/10/19 10:59 AM) 11/10/2019 [facility] CHEM PANEL Glucose Lvl 168 70 - 99 11/10/2019 [facility] CHEM PANEL BUN 49 7 - 22 11/10/2019 [facility] CHEM PANEL Creatinine Lvl 1.51 0.50 - 1.40 11/10/2019 [facility] CHEM PANEL Sodium Lvl 138 135 - 145 11/10/2019 [facility] CHEM PANEL Potassium Lvl 3.4 3.5 - 5.1 11/10/2019 [facility] CHEM PANEL Chloride Lvl 93 95 - 109 11/10/2019 [facility] CHEM PANEL CO2 36 24 - 32 11/10/2019 [facility] CHEM PANEL Calcium Lvl 8.8 8.5 - 10.5 11/10/2019 [facility] CHEM PANEL AGAP 12.4 10.0 - 20.0 11/10/2019 [facility] CHEM PANEL eGFR 45 11/10/2019 Result Comment: [...] should be multiplied by the estimated BMI. [facility] CHEM PANEL Magnesium Lvl 2.1 1.8 - 2.4 11/10/2019 [facility] HEMATOLOGY Segs 88.7 45.0 - 75.0 11/10/2019 [facility] HEMATOLOGY Lymphocytes 6.8 20.0 - 40.0 11/10/2019 [facility] HEMATOLOGY Monocytes 4.4 2.0 - 12.0 11/10/2019 [facility] HEMATOLOGY Basophils 0.1 0.0 - 1.0 11/10/2019 [facility] HEMATOLOGY Neutrophils # 9.3 1.5 - 8.1 11/10/2019 [facility] HEMATOLOGY Lymphocytes # 0.7 1.0 - 5.5 11/10/2019 [facility] HEMATOLOGY Monocytes # 0.5 0.0 - 0.8 11/10/2019 [facility] HEMATOLOGY WBC 10.5 3.7 - 10.4 11/10/2019 [facility] HEMATOLOGY RBC 4.95 4.70 - 6.10 11/10/2019 [facility] HEMATOLOGY Hgb 12.4 14.0 - 18.0 11/10/2019 [facility] HEMATOLOGY Hct 39.2 42.0 - 54.0 11/10/2019 [facility] HEMATOLOGY MCV 79.2 80.0 - 94.0 11/10/2019 [facility] HEMATOLOGY MCH 25.1 27.0 - 31.0 11/10/2019 [facility] HEMATOLOGY MCHC 31.7 32.0 - 36.0 11/10/2019 [facility] HEMATOLOGY RDW 19.6 11.5 - 14.5 11/10/2019 [facility] HEMATOLOGY Platelet 213 133 - 450 11/10/2019 [facility] HEMATOLOGY MPV 8.1 7.4 - 10.4 11/10/2019 [facility] CHEM PANEL Glucose Lvl 115 70 - 99 10/17/2019 [facility] CHEM PANEL BUN 51 7 - 22 10/17/2019 [facility] CHEM PANEL Creatinine Lvl 1.65 0.50 - 1.40 10/17/2019 [facility] CHEM PANEL Sodium Lvl 140 135 - 145 10/17/2019 [facility] CHEM PANEL Potassium Lvl 3.8 3.5 - 5.1 10/17/2019 [facility] CHEM PANEL Chloride Lvl 99 95 - 109 10/17/2019 [facility] CHEM PANEL CO2 40 24 - 32 10/17/2019 Result Comment: Critical Result(s) called to Shavon Hawkins at 10/16/2019 18:26 by . Read back OK. [facility] CHEM PANEL AGAP 4.8 10.0 - 20.0 10/17/2019 [facility] CHEM PANEL Calcium Lvl 9.1 8.5 - 10.5 10/17/2019 [facility] CHEM PANEL eGFR 40 10/17/2019 Result Comment: [...] should be multiplied by the estimated BMI. [facility] HEMATOLOGY Neutrophils # 8.4 1.5 - 8.1 10/17/2019 [facility] HEMATOLOGY Lymphocytes # 1.5 1.0 - 5.5 10/17/2019 [facility] HEMATOLOGY Monocytes # 0.7 0.0 - 0.8 10/17/2019 [facility] HEMATOLOGY Segs 78.0 45.0 - 75.0 10/17/2019 [facility] HEMATOLOGY Bands 1.0 0.0 - 11.0 10/17/2019 [facility] HEMATOLOGY Lymphocytes 14.0 20.0 - 40.0 10/17/2019 [facility] HEMATOLOGY Monocytes 7.0 2.0 - 12.0 10/17/2019 [facility] HEMATOLOGY Atypical Lymphs 0.0 <=0.0 % 10/17/2019 [facility] HEMATOLOGY NRBC 1 10/17/2019 [facility] HEMATOLOGY Anisocyte 1+ *ABN* (10/16/19 6:05 PM) None Seen 10/17/2019 [facility] HEMATOLOGY Microcyte 1+ *ABN* (10/16/19 6:05 PM) None Seen 10/17/2019 [facility] HEMATOLOGY Polychrom Moder ate *ABN* (10/16/19 6:05 PM) None Seen 10/17/2019 [facility] HEMATOLOGY Toxic Gran slight 10/17/2019 [facility] HEMATOLOGY Large Plt slight 10/17/2019 [facility] HEMATOLOGY WBC 10.6 3.7 - 10.4 10/17/2019 [facility] HEMATOLOGY RBC 4.67 4.70 - 6.10 10/17/2019 [facility] HEMATOLOGY Hgb 11.5 14.0 - 18.0 10/17/2019 [facility] HEMATOLOGY Hct 36.7 42.0 - 54.0 10/17/2019 [facility] HEMATOLOGY MCV 78.6 80.0 - 94.0 10/17/2019 [facility] HEMATOLOGY MCH 24.5 27.0 - 31.0 10/17/2019 [facility] HEMATOLOGY MCHC 31.2 32.0 - 36.0 10/17/2019 [facility] HEMATOLOGY RDW 18.7 11.5 - 14.5 10/17/2019 [facility] HEMATOLOGY Platelet 191 133 - 450 10/17/2019 [facility] HEMATOLOGY MPV 7.7 7.4 - 10.4 10/17/2019 [facility] HEMATOLOGY PTT 26.9 22.9 - 35.8 10/17/2019 [facility] HEMATOLOGY PT 15.1 12.0 - 14.7 10/17/2019 [facility] HEMATOLOGY INR 1.18 0.85 - 1.17 10/17/2019 [facility] URINE AND STOOL POC UA Bld Trace *NA* (05/18/19 12:35 PM) Negative 05/18/2019 [facility] URINE AND STOOL POC UA Bili Negative *NA* (05/18/19 12:35 PM) Negative 05/18/2019 [facility] URINE AND STOOL POC UA Ket Negative mg/dL Negative mg/dL 05/18/2019 [facility] URINE AND STOOL POC UA Uro 0.2 0.1 - 1.0 05/18/2019 [facility] URINE AND STOOL POC UA Nit Positive *ABN* (05/18/19 12:35 PM) Negative 05/18/2019 [facility] URINE AND STOOL POC UA LeukEst Small *ABN* (05/18/19 12:35 PM) Negative 05/18/2019 [facility] URINE AND STOOL POC UA Color Yellow *NA* (05/18/19 12:35 PM) Yellow 05/18/2019 [facility] URINE AND STOOL POC UA Turbidity Clear *NA* (05/18/19 12:35 PM) Clear 05/18/2019 [facility] URINE AND STOOL POC UA SG 1.015 <=1.030 05/18/2019 [facility] URINE AND STOOL POC UA Glu Negative mg/dL Negative mg/dL 05/18/2019 [facility] URINE AND STOOL POC UA pH 6.5 5.0 - 8.0 05/18/2019 [facility] URINE AND STOOL POC UA Prot Negative mg/dL Negative mg/dL 05/18/2019 [facility] CHEM PANEL eGFR 55 06/24/2016 Result Comment: [...] should be multiplied by the estimated BMI. [facility] CHEM PANEL POC Creatinine 1.3 0.5 - 1.4 06/24/2016 [facility] CHEM PANEL eGFR 55 04/10/2016 Result [...] should be multiplied by the estimated BMI. [facility] CHEM PANEL POC Creatinine 1.3 0.5 - 1.4 04/10/2016 [facility] Pathology Reports No Data Provided for [...] 2017 Jeremi Combs MD On 04/17/2020 09:38:05; [id number] 04/16/2020 [facility] Spine Thoracic wo contrast MRI Findings of prominent epidural fat from T4-T9 with mild compression of the thoracic spinal cord from T4-T8 discussed with Dr. Salmon via telephone on 04/16/2020 at 12:10 a.m. central time. Momo Bangura MD On 04/16/2020 00:12:09; [id number] PROCEDURE INFORMATION: Exam: MR Thoracic Spine Without [...] T10-T11 with mild spinal canal stenosis. Momo Banguar MD On 04/16/2020 00:02:15; [id number] 04/15/2020 [facility] Spine lumbar wo contrast MRI P [...] L5-S1. Skylar Rodas MD On 04/15/2020 23:48:44; [id number] 04/15/2020 [facility] Abdomen AP DX PROCEDURE INFORM ATION: [...] pelvis. Garry Lira MD On 04/14/2020 16:07:32; [id number] 04/14/2020 [facility] Retroperitoneal Complete [place] OCEDURE INFORMATION: Exam: US Retroperitoneal; Complete; Kidneys [...] imaging. Jose Rojo DO On 04/13/2020 17:11:56; [id number] 04/13/2020 [facility] 1view DX PROCEDURE INFOR MATION: Exam: [...] Steward MD On 04/13/2020 10:40:11; [id number] 04/13/2020 [facility] 1 v for Placement DX EXA [...] fracture deformities in the left hemithorax. 04/11/2020 [facility] Chest 2 views DX EXAM: XR CHES [...] 2. Mild bibasilar subsegmental atelecta sis. 04/03/2020 [facility] Spine Thoracic wo contrast MRI PROCEDURE INFORMATION: [...] exam. Nate Baig MD On 02/03/2020 10:12:14; [id number] 02/02/2020 [facility] Spine lumbar wo contrast MRI P [...] study. Nate Baig MD On 02/03/2020 09:39:50; [id number] 02/02/2020 [facility] Bone Density [employer] MA MALE BONE DENSITY ASSESSMENT: 07/23/2019 CLINICAL DATA: Clinical risk for osteoporosis. Z79.899 Other Correction (Current) Drug Therapy, M45.9 Ankylosing Spondylitis Of Unspecified Sites In Spine/Z79.899 Other Clinical Application Manager (Current) Drug Therapy, M45.9 Ankylosing Spondylitis Of [...] is recommended. This exam was interpreted at [id number] for JOVI Pyle, ELIZABETH 15. 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 SL: [id number] 12/04/2017 [facility] Spine cervical wo contrast MRI Study: [...] foraminal narrowing, left greater than right. SL: [id number] 12/04/2017 [facility] w pelvis and [...] nerve sheath tumor, or epidermoid cyst. SL: [id number] 06/24/2016 [facility] Spine lumbar w/wo contrast MRI Patient Name: STEVE BENEDICT : 1945; Age: 70 years y/o Male MR: [id number] Study: Spine lumbar w/wo contrast MRI 06/24/2016 [...] compatible with acute on chronic denervation. SL: [id number] 06/24/2016 [facility] Spine thoracic wo contrast CT CT [...] No acute abnormalities are visualized . SL:06/19/2016 [facility] lumbar wo contrast CT CT THORACIC [...] No acute abnormalities are visualized . SL:06/19/2016 [facility] cervical 2 or 3 view DX [...] 2. No acute fracture or malalignment. 04/23/2016 [facility] Spine Thoracic w/wo contrast MRI MRI THORACIC [...] multip le bilateral renal cysts. SL:16 04/10/2016 [facility] Spine lumbar w/wo contrast MRI EXAM: [...] smoking and anemia among other etiologies. SL: [id number] 03/28/2016 [facility] Consultation Notes No Data Provided for This Section Discharge Summaries No Data Provided for This Section History and Physicals No Data Provided for This Section Vital Signs Vital Sign Value Date Comments Source Temperature Oral (F) 98 F 04/20/2020 [facility] Heart Rate 93 04/20/2020 [facility] Respitory Rate 18 04/20/2020 [facility] Systolic (mm Hg) 120 04/20/2020 [facility] Diastolic (mm Hg) 79 04/20/2020 [facility] Temperature Oral (F) 97.9 F 04/20/2020 [facility] Heart Rate 96 04/20/2020 [facility] Systolic (mm Hg) 135 04/20/2020 [facility] Diastolic (mm Hg) 90 04/20/2020 [facility] Respitory Rate 18 04/20/2020 [facility] Temperature Oral (F) 98.0 F 04/20/2020 [facility] Heart Rate 80 04/20/2020 [facility] Systolic (mm Hg) 135 04/20/2020 [facility] Diastolic (mm Hg) 89 04/20/2020 [facility] Respitory Rate 18 04/20/2020 [facility] Height 175.26 cm 04/14/2020 [facility] Weight 107.004 04/14/2020 [facility] BMI Calculated 34.84 04/14/2020 [facility] Height 175.26 cm 04/13/2020 [facility] BMI Calculated 32.26 04/13/2020 [facility] Weight 99.091 04/13/2020 [facility] Temperature Oral (F) 97.9 F 04/13/2020 [facility] Heart Rate 64 04/13/2020 [facility] Respitory Rate 16 04/13/2020 [facility] Systolic (mm Hg) 105 04/13/2020 [facility] Diastolic (mm Hg) 60 04/13/2020 [facility] Systolic (mm Hg) 97 04/12/2020 [facility] Diastolic (mm Hg) 63 04/12/2020 [facility] Temperature Oral (F) 97.0 F 04/12/2020 [facility] Heart Rate 68 04/12/2020 [facility] Respitory Rate 20 04/12/2020 [facility] Systolic (mm Hg) 95 04/12/2020 [facility] Diastolic (mm Hg) 53 04/12/2020 [facility] Temperature Oral (F) 98.1 F 04/12/2020 [facility] Heart Rate 89 04/12/2020 [facility] Respitory Rate 20 04/12/2020 [facility] Height 175.26 cm 04/07/2020 [facility] Weight 99.091 04/07/2020 [facility] BMI Calculated 32.26 04/07/2020 [facility] Height 175.26 cm 04/07/2020 [facility] Weight 99.2 04/07/2020 [facility] Height 175.26 cm 04/07/2020 [facility] Weight 99.2 04/07/2020 [facility] BMI Calculated 32.3 04/07/2020 [facility] Height 175.26 cm 04/04/2020 [facility] Weight 98.324 04/04/2020 [facility] BMI Calculated 32.01 04/04/2020 [facility] BMI Calculated 31.97 04/03/2020 [facility] Respitory Rate 15 11/11/2019 [facility] Systolic (mm Hg) 110 11/11/2019 [facility] Diastolic (mm Hg) 70 11/11/2019 [facility] Respitory Rate 19 11/11/2019 [facility] Systolic (mm Hg) 146 11/11/2019 [facility] Diastolic (mm Hg) 86 11/11/2019 [facility] Respitory Rate 23 11/11/2019 [facility] Systolic (mm Hg) 113 11/11/2019 [facility] Diastolic (mm Hg) 68 11/11/2019 [facility] Temperature Oral (F) 97.6 F 11/10/2019 [facility] Height 175.26 cm 11/10/2019 [facility] Weight 94.091 11/10/2019 [facility] BMI Calculated 30.63 11/10/2019 [facility] Respitory Rate 18 10/17/2019 [facility] Systolic (mm Hg) 135 10/17/2019 [facility] Diastolic (mm Hg) 72 10/17/2019 [facility] Systolic (mm Hg) 129 10/17/2019 [facility] Diastolic (mm Hg) 75 10/17/2019 [facility] Respitory Rate 18 10/17/2019 [facility] Temperature Oral (F) 98.4 F 10/17/2019 [facility] Systolic (mm Hg) 150 10/17/2019 [facility] Diastolic (mm Hg) 89 10/17/2019 [facility] Respitory Rate 18 10/17/2019 [facility] Temperature Oral (F) 98.0 F 10/17/2019 [facility] Heart Rate 95 10/16/2019 [facility] Temperature Oral (F) 98.4 F 10/16/2019 [facility] Height 175.26 cm 06/02/2019 [facility] Weight [...] Provider ADM Date DC Date Status Source [facility] [place] [facility] [id number] Monique Reed 03/06/2016 03/07/2016 [facility] Outpatient [id number] Christopher Summers 03/28/2016 03/29/2016 [facility] [place] [facility] Di[facility] Services [id number] Angel Martínez 04/02/2016 04/03/2016 [facility] Outpatient [id number] Elida Valenzuela 04/10/2016 04/11/2016 [facility] [place] [facility] [id number] Monique Reed 04/23/2016 04/24/2016 [facility] Outpatient [id number] NEIL DANIEL 06/06/2016 [facility] Outpatient [id number] Neil Daniel Jr 06/19/2016 06/20/2016 [facility] Outpatient [id number] Neil Daniel Jr 06/24/2016 06/25/2016 [facility] Outpatient [id number] NEIL PHILLIPSMITT 07/11/[address] [facility] Outpatient [facility] - [place] Out[facility] Diag Services [id number] Mila Jones 04/23/2017 04/24/2017 [facility] [place] [facility] Outpatient [id number] Oleksandr Uriarteanali 12/05/2017 12/05/2017 [facility] [employer] [place] Phone Message [id number] 11/04/1911/06/2018 [facility] Outpatient [id number] CARLA REYNAGA 11/30/2018 Active [facility] Urology [facility] Outpatient [id number] Carla Reynaga 11/30/2018 12/01/2018 [facility] Outpatient [id number] URODYNAMICS 12/16/2018 Active [facility] Outpatient [id number] CARLA REYNAGA 12/22/[address] [facility] [place] Outpt Diag Services [id number] Mila Jones 12/28/2018 12/29/2018 [facility] [place] Outpatient [id number] Carla Reynaga 02/02/2019 Active [facility] Outpatient [id number] Carla Reynaga 04/19/2019 Active [facility] Outpatient [id number] Carla Reynaga 04/19/2019 04/20/2019 [facility] Outpatient [id number] NURSE VISIT 04/21/2019 Active [facility] Ambulatory Pre-Reg [id number] Christopher Summers 04/21/2019 04/21/2019 [facility] Outpatient [id number] Carla Reynaga 05/04/2019 Active [facility] [id number] Christopher Summers 05/04/2019 05/04/2019 [facility] Urology [facility] Ambulatory Pre-Reg [id number] Carla Reynaga 05/04/2019 05/04/2019 [facility] Outpatient [id number] - URODYNAMICS, 05/18/2019 Active [facility] [place] Outpatient [id number] Christopher Summers 05/18/2019 05/19/2019 [facility] U[facility] Ambulatory Pre-Reg [id number] Carla Reynaga 05/25/2019 05/25/2019 [facility] Outpatient [id number] MED_ASST VISIT 05/27/2019 Active [facility] [place] Outpatient [id number] Christopher Summers 05/27/2019 05/28/2019 [facility] Outpatient [id number] - URODYNAMICS, 06/01/2019 Active [facility] [place] Outpatient [id number] Christopher Summers 06/01/2019 06/02/2019 [facility] Outpatient [id number] Carla Reynaga 06/02/2019 Active [facility] [place] Outpatient [id number] Carla Reynaga 06/02/2019 06/03/2019 [facility] Outpatient [id number] - URODYNAMICS, 06/08/2019 Active [facility] Outpatient [id number] Carla Reynaga 06/14/[address] [facility] [place] Outpt Diag Services [id number] Mila Jones 07/23/2019 07/24/2019 [facility] [id number] Lucas Reanna 10/16/2019 10/17/2019 [facility] Inpatient [id number] Sheila Vásquez 11/10/2019 11/11/2019 [facility] Outpatient [id number] Morales Tolbert 02/02/2020 02/03/2020 [facility] Outpatient [id number] Carla Reynaga 02/03/2020 Active [facility] Outpatient [id number] Carla Reynaga 03/13/2020 Active [facility] [employer] Ambulatory Pre-Reg [id number] Carla Reynaga 03/13/2020 03/13/2020 [facility] Outpatient [id number] Carla Reynaga 04/04/2020 [facility] [place] Outpatient [id number] [facility] 04/04/2020 04/05/2020 [facility] Inpatient [id number] Morales Tolbert 04/07/2020 04/13/2020 [facility] Inpatient [id number] Abdulaziz Tobin 04/13/2020 04/20/2020 [facility] Outpatient [id number] Carla [facility] 07/04/2020 [facility] [place] Ambulatory Pre-Reg [id number] [facility] 07/04/2020 07/04/2020 [facility] Procedures Procedure Code Date Perfomer Comments Source Measurement of post-voiding residual uri ne and/or bladder capacity by ultrasound, non-imaging 16458 04/04/2020 [facility] Complex cystometrogram (ie, calibrated e [employer] equipment); with voiding pressure studies (ie, bladder voiding pressure), any technique 39269 06/02/2019 [facility] Voiding pressure studies, intra-abdomina l (ie, rectal, gastric, intraperitoneal) (List separately in addition to code for primary procedure) 21758 06/02/2019 [facility] Complex uroflowmetry (eg, calibrated cecilia ctronic equipment) 84809 06/02/2019 [facility] Electromyography studies (EMG) of anal o r urethral sphincter, other than needle, any technique 15886 06/02/2019 [facility] Cystoscopy [id number] 08/25/2018 [facility], O[facility] [place] Complex uroflowmetry [id number] 03/30/2018 [facility] , [facility] [place],[facility] Catheter replacement [id number] [facility], [facility] [place] Fusion<sup>1</sup> [id number] cervical fusion done on 09/11/[address] Nilo Adames [facility], [facility] [place] Prostate manipulation [id number] [facility], [facility] [place] Stent replacement [id number] [facility] [facility] [place] Ablation [id number] [facility] Cataract surgery [id number] [facility] Colonoscopy [id number] [facility] Operation [id number] [facility] PCI - Percutaneous coronary intervention [id number] [facility] ,[facility] Assessment and Plan Assessment and Plan [...] adjustments at this time. He may continue Keene 5/325mg q6h as needed. He is pending thoracic laminectomy once left elbow infection is cleared. We will continue to monitor pulmonary status. We will continue to follow and make adjustments as needed. We have provided a discharge prescription to the patient's pharmacy for Keene 5/325mg #10. Please call with any questions [...] 0.9% IV 100 mL 1 gm IVPB [id number] 200 ml/hr 04/19/20 cholecalciferol (Vitamin D3) 20 ,000 IntlUnit PO QPM 04/20/20 clopidogrel (Plavix) 75 mg PO D aily 04/13/20 enoxaparin 40 mg SUB-Q [id number] 04/19/20 folic acid 0.4 mg PO BID [...] 9% IV 250 mL 1,000 mg IVPB [id number] 250 ml/hr 04/14/20 vitamin A and D [...] 1080 1700 -620 04/19 24hr Tot 1440 3325 - 1885 Lines, Tubes, and Drains: 04/14/2020 04:00 Central Lines: Other: o ther PICC Double Labs (Last four charted values) WBC 4.8 (APR 20) 4.6 (APR 19) 4.8 (APR 18) 5.5 (APR 15) Hgb L 12.1 (APR 20) L 12.8 (SOL 24) L 12.5 (SOL 23) L 10.3 (SOL 20) Hct L 38.3 (SOL 25) L 41.5 (SOL 24) L 40.3 (SOL 23) L 33.5 (SOL 20) Plt 183 (SOL 25) 194 (SOL 24) 196 (SOL 23) 153 (SOL 20) Na 136 (SOL 25) 138 (SOL 24) 138 (SOL 23) 138 (SOL 22) K L 3.2 (SOL 25) C 2.8 (SOL 25) L 3.1 (SOL 24) C 3.0 (SOL 23) CO2 H 33 (SOL 25) H 35 (SOL 24) H 37 (SOL 23) H 37 (SOL 22) Cl 97 (SOL 25) 100 (SOL 24) 98 (SOL 23) 98 (SOL 22) Cr H 1.56 (SOL 25) H 1.50 (SOL 24) H 1.60 (SOL 23) H 1.61 (SOL 22) BUN H 39 (SOL 25) H 36 (SOL 24) H 41 (SOL 23) H 45 (SOL 22) Glucose Random H 103 (SOL 25) 83 (SOL 24) 77 (SOL 23) H 103 (SOL 22) Mg 2.0 (SOL 25) L 1.6 (SOL 24) 2.1 (SOL 23) 2.3 (SOL 20) Phos 3.4 (SOL 24) 3.1 (SOL 20) 4.5 (SOL 19) H 5.0 (MAR 18) Ca L 8.3 (MAR 25) 9.2 (SOL 24) 9.0 (SOL 23) 9.5 (SOL 22) PT 13.2 (MAR 18) INR 1.00 (MAR 18) PTT 28.1 (MAR 18) Troponin 0.13 (SOL 19) 0.15 (SOL 18) 0.06 (SOL 18) Total CK 81 (APR 13) Extracted from:Title: History and Physical Author: Dona Lyles MD Date: 04/13/20 # BLE weakness # Urinary retention # Hx of ankylosing spondylosis - MRI thoracic/lumbar spine ordered to r /o LONNY - PT/OT eval # Acute on chronic hypoxic respiratory failure # Acute on chronic systolic CHF exacerbation - LAUREL 10/2019 with EF 45-50% - 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 - home med: bumex 3 [...] while sleeping lovenox > 2 MNs 04/20/2020 [facility] Extracted from:Title: Infection Admissio n H&P * Author: Adan Nielsen MD Date: 04/12/20 Impression and Plan Open wound left elbow closed by Plastic Surgery Discussed plans with patient and all questions answered Vanco trough is therapeutic Vancomycin 1250 mg q24 h Rx for 14 days Monitor blood work Vanco trough ,CBC ,BMP ,UA weekly ,fax report to my office [phone] Call [phone] for an apt in 2 weeks Extracted from:Title: Infection Admission H&P * Author: Adan Nielsen MD Date: 04/07/20 Impression and Plan Open wound left elbow closed by Plastic Surgery No cultures To discuss antibiotic Rx regarding need and duration 04/13/2020 [facility] Extracted from:Title: EP Discharge Summa ry Author: Sheila Vásquez MD Date: 11/11/19 Discharge Plan Discharge Summary Plan Discharge Status: stable. Discharge instructions given: to patient. Discharge disposition: discharge to home. Prescriptions: continue same medications. Diagnosis Presence of Watchman left atrial appendage closure device (BQA19-MM Z95.818, Working, Medical). Presence of Watchman left atrial appendage closure device (NEX33-MO Z95.818, Working, Medical). 11/11/2019 [facility] Extracted from:Title: Burn Surgery Consu lt Note [...] Nilo Trejo MD PGY1 Urology/General Surgery MSO #[id number] [place] Phone x [phone] (Spect); Page [phone] 10/17/2019 [facility] Plan of Care No Data Provided for [...] SMOKING entered on: 04/14/20 1Quit smoking 201104/03/2020 [facility] Social History TypeResponse Alcohol Never Substance Abuse Use: None. Smoking Status Former smoker; Ready to change: No; Concerns about tobacco use in household: No; Exposure to Tobacco Smoke None; Cigarette Smoking Last 365 Days No; Reg Smoking Cessation Counseling No; Other Tobacco Frequency QUIT SMOKING entered on: 04/14/20 1Quit smoking 201104/03/2020 [facility] Social History TypeResponse Alcohol Never Substance Abuse Use: None. Smoking Status Former smoker; Ready to change: No; Concerns about tobacco use in household: No; Exposure to Tobacco Smoke None; Cigarette Smoking Last 365 Days No; Reg Smoking Cessation Counseling No; Other Tobacco Frequency QUIT SMOKING entered on: 04/14/20 1Quit smoking 201104/03/2020 [facility] Social History TypeResponse Smoking Status [...]
--- NOTE | 2020-07-30 18:03 | Emergency Department Note ---
History of Present Illnes History of Present Illness Chief Complaint: Extremity Trauma/Pain History of Present Illness This is a 74 year old male presents to the ED for evaluation of L LE pain. . 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 Any updates have been documented here. Past Medical History Recent Fever: No Clinical Suspicion of Infectio: No New/Unexplained Change in Ment: No Past Medical History: Hypertension, Diabetes, COPD, A-Fib, Chronic Kidney Disease, Osteoarthritis Other Medical History: BPH GOUT GLAUCOMA GOUT WATCHMAN PROCEDURE 11/10/2019 [facility] NEUROPATHY ANKLOSING SPONDYLITIS PAIN PUMP: DIALUADID 6.5 MG W/ MARCAINE GLAUCOMA KIDNEY DISEASE SEBORRHEIC DERMATITIS HYPERTHYROID TREMORS RESTLESS LEG PINCHED NERVES Past Surgical History: Back Surgery Other Surgery: PROSTAT LEFT ELBOW CARDIAC STENT X 01 JUL 2020- STENT PLACED NECK FUSION PROSTATE LASER CATERACT VEIN ABLATION ELBOW SURGERY Social History Smoking Cessation: Never Smoker Alcohol Use: None Any Illegal Drug Use: No Other Last Tetanus: UTD Any Pre-Existing Lines (PICC,: No Review of Systems Review of Systems Constitutional: Reports weakness Respiratory: Reports cough Integumentary: Reports change in color Physical Exam Related Data Allergies: Coded Allergies: pregabalin (Verified Allergy, Unknown, RASH, 07/30/20) Triage Vital Signs Vital Signs Date Time Temp Pulse Resp B/P (MAP) Pulse Ox O2 Delivery O2 Flow Rate FiO2 07/30/20 16:48 98.9 125 18 115/62 95 Room Air 4.0 Physical Exam CONSTITUTIONAL Constitutional: Present morbidly obese, Present ill appearing HENT EYES NECK PULMONARY CARDIOVASCULAR GASTROINTESTINAL GENITOURINARY SKIN MUSCULOSKELETAL NEUROLOGICAL PSYCHOLOGICAL Results Laboratory Result Diagram: 07/30/20 6063 Laboratory Laboratory Tests Test 07/30/20 17:25 White Blood Count 10.73 x10e3/uL (4.8-10.8) Red Blood Count 3.27 x10e6/uL (4.3-5.7) Hemoglobin 10.0 g/dL (14.0-18.0) Hematocrit 33.0 % (38.2-49.6) Mean Corpuscular Volume 100.9 fL (81-99) Mean Corpuscular Hemoglobin 30.6 pg (28-32) Mean Corpuscular Hemoglobin Concent 30.3 g/dL (31-35) Red Cell Distribution Width 17.7 % (11.7-14.4) Platelet Count 136 x10e3/uL (140-360) Neutrophils (%) (Auto) 86.0 % (38.7-80.0) Lymphocytes (%) (Auto) 6.4 % (18.0-39.1) Monocytes (%) (Auto) 5.8 % (4.4-11.3) Eosinophils (%) (Auto) 0.7 % (0.0-6.0) Basophils (%) (Auto) 0.2 % (0.0-1.0) Neutrophils # (Auto) 9.2 (2.1-6.9) Lymphocytes # (Auto) 0.7 (1.0-3.2) Monocytes # (Auto) 0.6 (0.2-0.8) Eosinophils # (Auto) 0.1 (0.0-0.4) Basophils # (Auto) 0.0 (0.0-0.1) Absolute Immature Granulocyte (auto 0.10 x10e3/uL (0-0.1) Lab results reviewed: Yes Laboratory comments Laboratory Tests Test 07/30/20 18:49 07/30/20 17:25 Lactic Acid Level 2.7 mmol/L (0.5-2.0) White Blood Count 10.73 x10e3/uL (4.8-10.8) Red Blood Count 3.27 x10e6/uL (4.3-5.7) Hemoglobin 10.0 g/dL (14.0-18.0) Hematocrit 33.0 % (38.2-49.6) Mean Corpuscular Volume 100.9 fL (81-99) Mean Corpuscular Hemoglobin 30.6 pg (28-32) Mean Corpuscular Hemoglobin Concent 30.3 g/dL (31-35) Red Cell Distribution Width 17.7 % (11.7-14.4) Platelet Count 136 x10e3/uL (140-360) Neutrophils (%) (Auto) 86.0 % (38.7-80.0) Lymphocytes (%) (Auto) 6.4 % (18.0-39.1) Monocytes (%) (Auto) 5.8 % (4.4-11.3) Eosinophils (%) (Auto) 0.7 % (0.0-6.0) Basophils (%) (Auto) 0.2 % (0.0-1.0) Neutrophils # (Auto) 9.2 (2.1-6.9) Lymphocytes # (Auto) 0.7 (1.0-3.2) Monocytes # (Auto) 0.6 (0.2-0.8) Eosinophils # (Auto) 0.1 (0.0-0.4) Basophils # (Auto) 0.0 (0.0-0.1) Absolute Immature Granulocyte (auto 0.10 x10e3/uL (0-0.1) Prothrombin Time 15.0 seconds (11.9-14.5) Prothromb Time International Ratio 1.12 Activated Partial Thromboplast Time 28.0 seconds (23.8-35.5) Sodium Level 136 mmol/L (136-145) Potassium Level 3.4 mmol/L (3.5-5.1) Chloride Level 90 mmol/L (98-107) Carbon Dioxide Level 31 mmol/L (22-29) Anion Gap 18.4 mmol/L (8-16) Blood Urea Nitrogen 55 mg/dL (7-26) Creatinine 2.10 mg/dL (0.72-1.25) Estimat Glomerular Filtration Rate 31 ML/MIN (60-) BUN/Creatinine Ratio 26 (6-25) Glucose Level 231 mg/dL (74-118) Calcium Level 9.3 mg/dL (8.4-10.2) Total Bilirubin 0.8 mg/dL (0.2-1.2) Aspartate Amino Transf (AST/SGOT) 41 IU/L (5-34) Alanine Aminotransferase (ALT/SGPT) 29 IU/L (0-55) Alkaline Phosphatase 84 IU/L (40-150) Creatine Kinase 716 IU/L (30-200) Creatine Kinase MB 11.60 ng/mL (0-5.0) Troponin I 0.201 ng/mL (0-0.300) B-Type Natriuretic Peptide 367.6 pg/mL (0-100) Total Protein 6.1 g/dL (6.5-8.1) Albumin 3.2 g/dL (3.5-5.0) Globulin 2.9 g/dL (2.3-3.5) Albumin/Globulin Ratio 1.1 (0.8-2.0) Imaging Imaging results reviewed: Yes Impressions VENOUS DUPLEX L LE :Neg for DVT [place] [address] Patient Name: STEVE BENEDICT MR #: [id number] : 1945 Age/Sex: 74/M Req #: [id number] Adm Physician: Ordered by: IBAN RAMOS MD Report #: [id number] Location: ER Room/Bed: Procedure: [id number] DX/CHEST SINGLE (PORTABLE) Exam Date: 07/30/20 Exam Time: 1740 REPORT STATUS: Signed EXAMINATION: CHEST SINGLE (PORTABLE) INDICATION: CHF, COUGH COMPARISON: Chest radiograph 06-21-2020. CT chest 08-05-2019. FINDINGS: TUBES and LINES: None. LUNGS: Lungs are well inflated. There is focal linear nodular opacity in the right midlung and linear/patchy opacity in the left lower lung. PLEURA: No pleural effusion or pneumothorax. HEART AND MEDIASTINUM: The cardiomediastinal silhouette is unremarkable. BONES AND SOFT TISSUES: No acute osseous abnormality. Healing left-sided rib fractures. Partially visualized cervical spine fixation hardware. UPPER ABDOMEN: No free air under the diaphragm. IMPRESSION: Focal opacities in the right mid and left lower lungs may be infectious in the setting of cough. The right midlung opacity may represent underlying pulmonary nodule. Recommend chest CT or alternatively follow-up chest radiograph for further evaluation. Signed by: Dr. Jose Manuel Person MD on 07/30/2020 6:28 PM Dictated By: JOSE MANUEL PERSON MD 27 Transcribed By: ERAN on 07/30/201827 COPY TO: IBAN RAMOS MD~ Procedures 12 Lead ECG Interpretation ECG Interpretation : ECG: ECG 1 Bag Machine Operator: Interpreted by ED physician Date: Jul 30, 2020 Time: 18:03 Rhythm: atrial fibrillation Rate: tachycardia ST segments normal: Yes T waves normal: Yes Critical Care Time Total Critical Care Time (min): 31 Critcal care time spent by me: develop tx plan w patient/surrogate, evaluation patient response to tx, examination of patient, obtaining hx from patient/surrogate, order/perform tx or interventions, order/review laboratory studies, order/review radiographic studies, pulse oximetry, re-evaluation of patient condition Assessment & Plan Medical Decision Making MDM Diff Dx : cellulitis, DVT, PAD, ACS, palpitations, SEPSIS Assessment & Plan Final Impression: (1) Severe sepsis (2) Atrial fibrillation with RVR (3) Cellulitis of left lower extremity (4) Pneumonia (5) Renal insufficiency Depart Disposition: ADMITTED Last Vital Signs Date Time Temp Pulse Resp B/P (MAP) Pulse Ox O2 Delivery O2 Flow Rate FiO2 07/30/20 16:48 98.9 125 18 115/62 95 Room Air 4.0 Home Meds Reported Medications Ticagrelor (BRILINTA) 90 Mg Tablet, 90 MG PO BID 07/30/20 Dapsone (DAPSONE) 100 Mg Tablet, 100 MG PO DAILY 07/30/20 Insulin Aspart (NOVOLOG) 100 Units/1 Ml Inj, 6 UNITS SQ DAILY 07/30/20 Prednisone (PREDNISONE) 20 Mg Tab, 30 MG PO BID 07/30/20 Pramipexole Di-Hcl (MIRAPEX) 0.25 Mg Tablet, 0.25 MG PO HS, #30 TAB 07/30/20 Metolazone (METOLAZONE) 5 Mg Tablet, 0.05 MG PO DAILY PRN for HIGH BLOOD PRESSURE, #30 TAB 07/30/20 Sitagliptin Phosphate (JANUVIA) 100 Mg Tablet, 50 MG PEG DAILY, #30 TAB 10/4/20 Glimepiride (GLIMEPIRIDE) 4 Mg Tablet, 2 MG PO BID 07/30/20 Ferrous Sulfate (FERROUS SULFATE) 325 Mg Tablet, 325 MG PO DAILY 07/30/20 Clonazepam (CLONAZEPAM) 0.25 Mg Tab.rapdis, 0.5 MG PO BID 07/30/20 Clobetasol Propionate (CLOBETASOL PROPIONATE) 1 Ea/15 Gm Cr, TOP DAILY 07/30/20 Bumetanide (BUMETANIDE) 1 Mg Tablet, 4 MG PO BID 07/30/20 Baclofen (BACLOFEN) 10 Mg Tablet, 10 MG PO BID 07/30/20 [alcometasone dip] No Conflict Check, 0.05 % DAILY 07/30/20 Albuterol Sulfate (ALBUTEROL SULFATE) 2.5 Mg/0.5 Ml Vial.neb, 2.5 MG INH BID 07/30/20 Lidocaine (Lidocaine Pain Relief) 1 Each Adh..patch, 6 PATCH TOP Q12H PRN for PRN 06/13/20 Tamsulosin Hcl* (FLOMAX*) 0.4 Mg Cap, 0.4 MG PO BID, #30 CAP 12/24/19 Cholecalciferol (Vitamin D3) (Vitamin D3) 5,000 Unit Tab.rapdis, 36761 UNITS PO DAILY 12/24/19 Gabapentin (GABAPENTIN) 300 Mg Capsule, 300 MG PO HS, #60 CAP 12/24/19 Metoprolol Tartrate (METOPROLOL TARTRATE) 25 Mg Tablet, 12.5 MG PO BID, TAB 12/24/19 Sodium Chloride For Inhalation (HYPER-CANDY) 4 Ml Vial.neb, 7 % INH PRN 08/05/19 Hydromorphone Hcl (HYDROMORPHONE HCL) 8 Mg Tablet, 8 MG PO DAILY PRN for SEVERE PAIN (7-10) 08/05/19 Colchicine (COLCRYS) 0.6 Mg Tablet, 0.6 MG PO DAILY PRN for Mild Pain (1-3) or Fever>100.8, #30 TAB NEEDED FOR GOUT SYMPTOMS 08/05/19 Psyllium Husk (WAL-MUCIL) 0.52 Gm Capsule, 8 CAP PO DAILY 08/05/19 Cyanocobalamin (Vitamin B-12) (VITAMIN B-12) 1,000 Mcg Tab.subl, 1000 MCG PO .WEEKLY 08/05/19 Folic Acid (FOLIC ACID) 1 Mg Tablet, 400 MCG PO BID, #30 TAB 08/05/19 Bisacodyl (DULCOLAX) 5 Mg Tablet.dr, 2 TAB PO DAILY 08/05/19 Potassium Chloride (POTASSIUM CHLORIDE) 20 Meq Tab.er.prt, 60 MEQ PO DAILY 08/05/19 Methenamine Hippurate (METHENAMINE HIPPURATE) 1 Gm Tablet, 25 TAB PO BID 08/05/19 Allopurinol (ALLOPURINOL) 300 Mg Tablet, 300 MG PO HS, #30 TAB 04/23/19 Hydromorphone/Bupiv/0.9NACL/Pf (HYDROMOR-BUPIVA 10 MCG-0.0625%) 100 Ml Pump.resvr, 6.5 MG SC DAILY 02/08/19 Alprazolam (ALPRAZOLAM) 0.5 Mg Tablet, 0.5 MG PO PRN 02/08/19 Mirabegron (MYRBETRIQ) 50 Mg Tab.er.24h, 50 MG PO DAILY 01/06/19 Albuterol Sulf* (PROAIR HFA INHALER*) 8.5 Gm Inh, 2 EACH INH DAILY PATIENT TAKES 3-5 PUFFS INHALATION 12/30/18 Clopidogrel Bisulfate (CLOPIDOGREL) 75 Mg Tablet, 75 MG PO DAILY, #30 TAB 12/07/18 Testosterone Cypionate (TESTOSTERONE CYPIONATE) 200 Mg/1 Ml Vial, 200 MG IM every 2 weeks 09/13/18 Sertraline Hcl (SERTRALINE HCL) 50 Mg Tablet, 50 MG PO HS, #30 TAB 07/31/18 Ropinirole Hcl (ROPINIROLE HCL) 0.25 Mg Tablet, 0.5 MG PO BID, #90 TAB 07/31/18 Aspirin (ASPIR 81) 81 Mg Tablet.dr, 1 TAB PO DAILY 05/07/17 Budesonide (BUDESONIDE) 0.5 Mg/2 Ml Ampul.neb, 2 ML NEB BID, EACH 05/07/17 Liothyronine Sodium (LIOTHYRONINE SODIUM) 5 Mcg Tablet, 5 MCG PO QAM 05/07/17 Levothyroxine Sodium (LEVOTHYROXINE SODIUM) 50 Mcg Tablet, 100 MCG PO DAILY, #30 TAB 05/07/17 Latanoprost (LATANOPROST) 2.5 Ml Drops, 1 DROP OU HS 09/01/13 Discontinued Reported Medications Rivaroxaban (XARELTO) 15 Mg Tablet, 15 MG PO DAILY 02/08/19 Albuterol Sulfate (ALBUTEROL SULFATE) 0.63 Mg/3 Ml Vial.neb, 0.83 % NEB BID 09/13/18 Discontinued Scripts Amoxicillin/Potassium Clav (AUGMENTIN 500-125 TABLET) 1 Each Tablet, 500 MG PO Q12HR for 7 Days, TAB Prov:SAMARA DAS NP 06/20/20 Furosemide (FUROSEMIDE) 40 Mg Tablet, 40 MG PO BID@,18 for 14 Days Prov:SAMARA DAS NP 06/20/20 Ciprofloxacin Hcl (CIPRO) 500 Mg Tablet, 250 MG PO Q12H, #30 TAB Prov:SAMARA DAS NP 06/20/20 Medications in the ED Aspirin 81 mg PRN ONCE PO ; Start 07/30/20 at 17:00; Stop 07/30/20 at 17:05; Status JOSE ROLLE DO Jul 30, 2020 18:03
[2020-07-30 18:11] LABS: INR 1.12
[2020-07-30 18:17] LABS: ALBUMIN 3.2 g/dL (3.5-5.0); ALBUMIN/GLOBULIN RATIO 1.1 (0.8-2.0); ANION GAP 18.4 mmol/L (8-16); CALCIUM 9.3 mg/dL (8.4-10.2); CREATININE, SERUM 2.1 mg/dL (0.72-1.25); POTASSIUM 3.4 mmol/L (3.5-5.1)
[2020-07-30 18:24] LABS: CREATINE KINASE MB 11.6 ng/mL (0-5.0)
[2020-07-30] MEDS ORDERED: CLONAZEPAM0.25 MG PO (18:25)
[2020-07-30] MEDS ORDERED: METOLAZONE5 MG PO (18:25)
[2020-07-30] MEDS ORDERED: DAPSONE100 MG PO (18:25)
[2020-07-30] MEDS ORDERED: BRILINTA90 MG PO (18:25)
[2020-07-30] MEDS ORDERED: ALBUTEROL2.5 MG/0.5 INH (18:25)
[2020-07-30] MEDS ORDERED: BACLOFEN10 MG PO (18:25)
[2020-07-30] MEDS ORDERED: BUMETANIDE1 MG PO (18:25)
[2020-07-30] MEDS ORDERED: NOVOLOG100 UNITS1 SQ (18:25)
[2020-07-30] MEDS ORDERED: [UNRECOGNIZED DRUG - OTHER] (18:25)
[2020-07-30] MEDS ORDERED: FERROUS SULFAT325 MG PO (18:25)
[2020-07-30] MEDS ORDERED: GLIMEPIRIDE4 MG PO (18:25)
[2020-07-30] MEDS ORDERED: CLOBETASOL1 EA/15 GM TOP (18:25)
[2020-07-30] MEDS ORDERED: JANUVIA100 MG PEG (18:25)
[2020-07-30] MEDS ORDERED: MIRAPEX0.25 MG PO (18:25)
[2020-07-30] MEDS ORDERED: PREDNISONE20 MG PO (18:25)
[2020-07-30] MEDS ORDERED: DILTIAZEM HCL 125 ML IV STA (18:28)
[2020-07-30] MEDS ORDERED: DILTIAZEM HCL 5 MG/ML 5 ML VIAL IV STA (18:28)
--- NOTE | 2020-07-30 18:32 | Diagnostic Imaging Report ---
EXAMINATION: CHEST SINGLE (PORTABLE) INDICATION: CHF, COUGH COMPARISON: Chest radiograph 06-21-2020. CT chest 08-05-2019. FINDINGS: TUBES and LINES: None. LUNGS: Lungs are well inflated. There is focal linear nodular opacity in the right midlung and linear/patchy opacity in the left lower lung. PLEURA: No pleural effusion or pneumothorax. HEART AND MEDIASTINUM: The cardiomediastinal silhouette is unremarkable. BONES AND SOFT TISSUES: No acute osseous abnormality. Healing left-sided rib fractures. Partially visualized cervical spine fixation hardware. UPPER ABDOMEN: No free air under the diaphragm. IMPRESSION: Focal opacities in the right mid and left lower lungs may be infectious in the setting of cough. The right midlung opacity may represent underlying pulmonary nodule. Recommend chest CT or alternatively follow-up chest radiograph for further evaluation. Signed by: Dr. Roxanne Gonzalez MD on 07/30/2020 6:28 PM
[2020-07-30] MEDS: PIPER-TAZ 3.375 GM 50 ML IV SCH ×2 (19:01→23:29)
[2020-07-30] MEDS ORDERED: DIGOXIN INJ 0.25 MG/ML 2 ML AMP IV STA (19:16)
[2020-07-30] MEDS ORDERED: SODIUM CHLORIDE 0.9% 1000ML 1,000 ML IV STA (19:19)
--- NOTE | 2020-07-30 19:23 | NUR ---
no aspirin per md
[2020-07-30] MEDS ORDERED: MORPHINE SULFATE INJ 4 MG/ML INJ 1ML IV PRN (19:30)
[2020-07-30] MEDS ORDERED: ONDANSETRON HCL INJ 2MG/ML 2ML 2 MG/ML VIAL IV PRN (19:30)
--- OUTSIDE RECORDS SUMMARY | 2020-07-30 19:31 | XMS REPORT | Clinical Summary ---
Author Author RADHIKA [facility] Address Unknown Phone Unavailable Care Team Providers Care Deckhand Name Role Phone Jimy Kwong Unavailable Allergies Comments Active Allergy Reactions Severity Noted Date Pregabalin Rash Low 06/21/2020 Legs cramping/weak Gavlbjg-Tpw-Fam Reductase Other (See 07/20/2020 Inhibitors Comments) Medications End Date Status Medication Sig Dispensed Refills Start Date Active mirabegron (MYRBETRIQ) 50 Take 50 mg by 0 mg Tb24 ER tablet mouth daily. Active levothyroxine 100 mcg Cap Take 100 mcg 0 by mouth every morning before breakfast. Active albuterol (ACCUNEB) 0.63 Inhale 1 0 mg/3 mL nebulizer ampule by solution mouth via inhaler as needed. Active zolpidem (AMBIEN) 10 mg Take 10 mg by 0 tablet mouth as needed. Active psyllium husk (WAL-MUCIL Take 8 0 FIBER ORAL) capsules by mouth daily. Active cholecalciferol, vitamin Take 1 0 11/30 D3, (VITAMIN D3) 50 mcg capsule by 9 (2,000 unit) Cap mouth daily. Active cyanocobalamin, vitamin Take 2 0 B-12, (VITAMIN B-12) tablets by 0 5,000 mcg Subl mouth once a week. Active testosterone cypionate Inject 1 mL 0 04/07/ 02 200 mg/mL Kit intramuscular 0 ly once every 2 weeks. Active tamsulosin (FLOMAX) 0.4 Take 0.4 mg 0 mg Cap 24 hr capsule by mouth 0 daily. Active sodium chloride for 1 Inhalation 0 inhalation (HYPER-CANDY by Nasal 9 INHL) route as needed. Active collagenase (SANTYL) 250 Apply 1 0 units/g ointment application topically daily. Active rOPINIRole (REQUIP) 0.5 Take 0.5 mg 0 MG tablet by mouth 9 daily. Active predniSONE (DELTASONE) 20 Take 20 mg by 0 03/27 MG tablet mouth every 0 morning. Active predniSONE (DELTASONE) 10 Take 10 mg by 0 MG tablet mouth nightly. Active pramipexole (MIRAPEX) Take 1 tablet 0 04/07/20 2 0.25 MG tablet by mouth 0 nightly. Active potassium chloride 20 mEq Take 20 mEq 0 03/27 TbER by mouth 3 0 (three) times daily. Active guaifenesin/dextromethorp Take 400 mg 0 charles (DAYTIME MUCUS RELIEF by mouth as 9 DM ORAL) needed. Active metOLazone (ZAROXOLYN) 5 Take 5 mg by 0 11/10 MG tablet mouth as 0 needed. Active METHENAMINE HIPPURATE Take 25 mg by 0 ORAL mouth 2 (two) times daily. Active liothyronine (CYTOMEL) 5 Take 5 mcg by 0 04/07 MCG tablet mouth daily. 0 Active lidocaine (LIDODERM) 5 % Apply 5 0 patch patches topically as needed. Active latanoprost (XALATAN) Place 1 drop 0 0.005 % ophthalmic into both solution eyes nightly. Active morphine sulfate/PF Apply 6.25 mg 0 (HYDROMORPHONE 1 MG/ML topically BOLUS FROM BAG) 1 mg/mL continuous injection Patient has indwelling dilaudid pump, delivers amount above continuous.. Active gabapentin (NEURONTIN) Take 300 mg 0 02 300 MG capsule by mouth 0 daily. Active vitamin B complex-folic Take 0.4 mg 0 acid (B COMPLEX 1, WITH by mouth 0 FOLIC ACID,) 0.4 mg Tab daily. Active ferrous sulfate 325 (65 Take 325 mg 0 FE) MG tablet by mouth 0 daily. Active bisacodyL (DULCOLAX) 5 mg Take 5 mg by 0 03/28 EC tablet mouth as 9 needed. Active desonide (DESOWEN) 0.05 % Apply 1 0 lotion application topically as needed. Active clonazePAM (KLONOPIN) 0.5 Take 0.5 mg 0 03/27 MG tablet by mouth as 0 needed. Active clobetasoL (CLOBEX) 0.05 Apply 1 0 11/30 % lotion application 9 topically as needed. Active budesonide (PULMICORT) 1 Inhalation 0 01 0.5 mg/2 mL nebulizer by Nasal 9 solution route as needed. Active baclofen (LIORESAL) 10 MG Take 10 mg by 0 /0 tablet mouth 2 (two) 9 times daily. Active aspirin (ENTERIC COATED Take 81 mg by 0 ASPIRIN) 81 MG EC tablet mouth daily. 9 Active allopurinoL (ZYLOPRIM) Take 300 mg 0 01 300 MG tablet by mouth 9 daily. Active alclomethasone (ACLOVATE) Apply 1 0 03/27 0.05 % cream application 0 topically daily. Active ALBUTEROL INHL 1 Inhalation 0 by Nasal 0 route 2 (two) times daily. Active sertraline (ZOLOFT) 50 MG Take 50 mg by 0 tablet mouth daily. Active glimepiride (AMARYL) 2 MG Take 2 mg by 0 tablet mouth 2 (two) times daily. 07/28/2021 Active ticagrelor (BRILINTA) 90 Take 1 tablet 180 tablet 0 mg Tab tablet (90 mg total) 0 by mouth 2 (two) times daily. 07/28/2021 Active bumetanide (BUMEX) 1 MG Take 1 tablet 270 tablet 0 tablet (1 mg total) 0 by mouth 3 (three) times daily. 07/29/2021 Active dapsone 100 MG tablet Take 1 tablet 90 tablet 0 (100 mg 0 total) by mouth daily. Active metoprolol succinate 25 Take 25 mg by 0 mg CSpX mouth daily. 0 07/28/2020 Discontinued metoprolol succinate 25 Take 12.5 mg 0 mg CSpX by mouth 2 (two) times daily. 07/28/2020 Discontinued clopidogreL (PLAVIX) 75 Take 75 mg by 0 mg tablet mouth daily. 9 07/28/2020 Discontinued bumetanide (BUMEX) 2 MG Take 4 mg by 0 tablet mouth 2 (two) times daily. Active Problems Problem Noted Date Acute on chronic HFrEF (heart failure with reduced ej ection fraction) 06/28/2020 Acute on chronic respiratory failure with hypoxia and hypercapnia 06/21/2020 Encounters Care Team Description Date Type Specialty Lola Michaud RN 07/30/2020 Documentation Shane Cruz MD 07/18/2020 Anesthesia Event Santosh Bruno MD PCI W/ IMPELLA MCR - IP PROC ONLY 07/18/2020 Surgery Santosh Bruno MD L CATH & PCI 07/07/2020 Surgery 06/25/2020 Travel 06/22/2020 Orders Only General Internal Me aureliano Guerin, MD Meet Layne, MD Chauncey Santana, Марина Manrique MD Kim, MD Rena Villagomez, Abhijeet Magana, MD Cardenas, MD Hayden Rudd, MD Ayush Lion, Latrice Boss MD Acute on chronic respiratory failure wit h hypoxia and hypercapnia (HCC) (Primary Dx); Acute respiratory failure with hypercapnia (HCC); COPD exacerbation (HCC); Morbid obesity (HCC); Paroxysmal atrial fibrillation (HCC); Cellulitis of lower extremity, unspecified laterality; Pressure injury of left elbow, stage 3 (HCC); 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); Hypoglycemia associated with diabetes (HCC); Acute on chronic HFrEF (heart failure with reduced ejection fraction) (HCC); 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 (HCC); ALISON (acute kidney injury) (HCC); Hip pain, acute, right; Pulmonary fibrosis (HCC); Ankylosing spondylitis, unspecified site of spine (HCC) 06/21/2020 Hospital Cardiology - Encounter 07/28/2020 Geneva Jo MD 06/21/2020 Emergency Emergency Medicine George Rockwell MD transfer 06/21/2020 Telephone Critical Care Medic ine after 07/30/2019 Social History Date Tobacco Use Types Packs/Day Years Used 06/27/1960 - 06/27/2011 Former Smoker Cigarettes 2 Smokeless Tobacco: Never Used Alcohol Use Drinks/Week oz/Week Comments No Alcohol Habits Answer Date Recorded How often do you have a drink containing alcohol? Never 06/25/2020 How many drinks containing alcohol do you have on No t asked a typical day when you are drinking? How often do you have six or more drinks on one Not asked occasion? Sex Assigned at Date Recorded Not on file Industry Job Start Date Occupation Not on file Not on file Not on file Travel End Travel History Travel Start No recent travel history available. Last Filed Vital Signs Time Taken Vital Sign Reading 07/28/2020 5:00 PM CDT Blood Pressure 119/53 07/28/2020 5:00 PM CDT Pulse 82 07/28/2020 5:00 PM CDT Temperature 36.3 C (97.4 F) 07/28/2020 5:00 PM CDT Respiratory Rate 19 07/28/2020 5:00 PM CDT Oxygen Saturation 97% 06/29/2020 1:56 PM CDT Inhaled Oxygen 50% Concentration 07/27/2020 5:00 AM CDT Weight 97.5 kg (214 lb 14.4 oz) 07/22/2020 5:24 AM CDT Height 175.3 cm (5' 9.02") 07/27/2020 5:00 AM CDT Body Mass Index 31.72 Plan of Treatment Health Maintenance Due Date Last Done Comments COLON CANCER SCREENING 1944 COLONOSCOPY DIABETIC EYE EXAM 1954 DIABETIC FOOT EXAM 1954 URINE MICROALBUMIN 1954 PNEUMOCOCCAL 65+ 2009 LOW/MEDIUM RISK (1 of 2 - PCV13) Medicare IPPE (WELCOME TO 10/27/2019 MEDICARE) INFLUENZA VACCINE (#1) 2020 HEMOGLOBIN A1C 12/27/2020 06/29/2020 Implants Device Identifier Shelf Expiration Date Model / Serial / L ot Implanted Type Area Manufactur er [id number] 12/05/2021 [id number] / / [id number] [employer] Mr [id number] IMPLANTS [employer] [id number] - [id number] SCI:INTERV Implanted: Qty: 1 on 07/18/2020 by CARDIOLOGY Santosh Bruno MD Procedures Comments Procedure Name Priority Date/Time Associated Diag nosis POCT-GLUCOSE METER Routine 07/28/2020 11:36 AM CDT POCT-GLUCOSE METER Routine 07/28/2020 8:33 AM CDT CBC W/PLT COUNT & AUTO Routine 07/28/2020 DIFFERENTIAL 5:17 AM CDT CBC W/PLT COUNT & AUTO Routine 07/28/2020 DIFFERENTIAL 5:17 AM CDT PHOSPHORUS Routine 07/28/2020 5:17 AM CDT COMPREHENSIVE METABOLIC Routine 07/28/2020 PANEL 5:17 AM CDT CALCIUM, IONIZED Routine 07/28/2020 5:17 AM CDT MAGNESIUM Routine 07/28/2020 5:17 AM CDT POCT-GLUCOSE METER Routine 07/27/2020 10:43 PM CDT POCT-GLUCOSE METER Routine 07/27/2020 5:48 PM CDT POCT-GLUCOSE METER Routine 07/27/2020 1:11 PM CDT POCT-GLUCOSE METER Routine 07/27/2020 8:59 AM CDT PHOSPHORUS Routine 07/27/2020 5:07 AM CDT CALCIUM, IONIZED Routine 07/27/2020 5:07 AM CDT CBC (HEMOGRAM ONLY) Routine 07/27/2020 5:07 AM CDT MAGNESIUM Routine 07/27/2020 5:07 AM CDT BASIC METABOLIC PANEL (7) Routine 07/27/2020 5:07 AM CDT POCT-GLUCOSE METER Routine 07/26/2020 9:51 PM CDT POCT-GLUCOSE METER Routine 07/26/2020 4:55 PM CDT 2D ECHO W/ DOPPLER ANA 07/26/2020 (CW/PW/COLOR) 3:25 PM CDT POCT-GLUCOSE METER Routine 07/26/2020 12:44 PM CDT POCT-GLUCOSE METER Routine 07/26/2020 8:31 AM CDT PHOSPHORUS Routine 07/26/2020 5:43 AM CDT CBC (HEMOGRAM ONLY) Routine 07/26/2020 5:43 AM CDT MAGNESIUM Routine 07/26/2020 5:43 AM CDT BASIC METABOLIC PANEL (7) Routine 07/26/2020 5:43 AM CDT POCT-GLUCOSE METER Routine 07/25/2020 9:06 PM CDT POCT-GLUCOSE METER Routine 07/25/2020 5:01 PM CDT POCT-GLUCOSE METER Routine 07/25/2020 11:42 AM CDT POCT-GLUCOSE METER Routine 07/25/2020 7:59 AM CDT B-TYPE NATRIURETIC FACTOR Routine 07/25/2020 (BNP) 6:28 AM CDT PHOSPHORUS Routine 07/25/2020 6:28 AM CDT CALCIUM, IONIZED Routine 07/25/2020 6:28 AM CDT CBC (HEMOGRAM ONLY) Routine 07/25/2020 6:28 AM CDT MAGNESIUM Routine 07/25/2020 6:28 AM CDT BASIC METABOLIC PANEL (7) Routine 07/25/2020 6:28 AM CDT POCT-GLUCOSE METER Routine 07/24/2020 9:18 PM CDT POCT-GLUCOSE METER Routine 07/24/2020 3:59 PM CDT POCT-GLUCOSE METER Routine 07/24/2020 11:29 AM CDT POCT-GLUCOSE METER Routine 07/24/2020 8:57 AM CDT CBC (HEMOGRAM ONLY) Routine 07/24/2020 3:50 AM CDT MAGNESIUM Routine 07/24/2020 3:50 AM CDT BASIC METABOLIC PANEL (7) Routine 07/24/2020 3:50 AM CDT POCT-GLUCOSE METER Routine 07/23/2020 7:30 PM CDT POCT-GLUCOSE METER Routine 07/23/2020 6:18 PM CDT POCT-GLUCOSE METER Routine 07/23/2020 5:06 PM CDT POCT-GLUCOSE METER Routine 07/23/2020 12:00 PM CDT POCT-GLUCOSE METER Routine 07/23/2020 10:14 AM CDT CBC (HEMOGRAM ONLY) Routine 07/23/2020 6:19 AM CDT MAGNESIUM Routine 07/23/2020 6:19 AM CDT BASIC METABOLIC PANEL (7) Routine 07/23/2020 6:19 AM CDT POCT-GLUCOSE METER Routine 07/22/2020 10:23 PM CDT POCT-GLUCOSE METER Routine 07/22/2020 5:35 PM CDT POCT-GLUCOSE METER Routine 07/22/2020 12:09 PM CDT POCT-GLUCOSE METER Routine 07/22/2020 7:52 AM CDT CBC (HEMOGRAM ONLY) Routine 07/22/2020 5:09 AM CDT MAGNESIUM Routine 07/22/2020 5:09 AM CDT BASIC METABOLIC PANEL (7) Routine 07/22/2020 5:09 AM CDT POCT-GLUCOSE METER Routine 07/21/2020 11:04 PM CDT POCT-GLUCOSE METER Routine 07/21/2020 7:59 PM CDT POCT-GLUCOSE METER Routine 07/21/2020 5:49 PM CDT HEMOGLOBIN AND HEMATOCRIT Routine 07/21/2020 4:28 PM CDT POCT-GLUCOSE METER Routine 07/21/2020 1:11 PM CDT POCT-GLUCOSE METER Routine 07/21/2020 8:40 AM CDT PULMONARY FUNCTION - SCAN 07/21/2020 7:20 AM CDT PHOSPHORUS Routine 07/21/2020 4:44 AM CDT CALCIUM, IONIZED Routine 07/21/2020 4:44 AM CDT CBC (HEMOGRAM ONLY) Routine 07/21/2020 4:44 AM CDT MAGNESIUM Routine 07/21/2020 4:44 AM CDT BASIC METABOLIC PANEL (7) Routine 07/21/2020 4:44 AM CDT POCT-GLUCOSE METER Routine 07/20/2020 9:19 PM CDT HEMOGLOBIN AND HEMATOCRIT Routine 07/20/2020 8:26 PM CDT SARS-COV2/RT-PCR ([facility] & Routine 07/20/2020 REF LABS) 7:27 PM CDT POCT-GLUCOSE METER Routine 07/20/2020 5:04 PM CDT VASCULAR DIAGRAM -SCAN 07/20/2020 1:52 PM CDT POCT-GLUCOSE METER Routine 07/20/2020 12:27 PM CDT POCT-GLUCOSE METER Routine 07/20/2020 10:31 AM CDT XR CHEST 1 VIEW Routine 07/20/2020 PORTABLE/BEDSIDE 7:19 AM CDT CREATINE KINASE (CK) Add-On 07/20/2020 4:44 AM CDT HEMOGLOBIN AND HEMATOCRIT STAT 07/20/2020 4:44 AM CDT B-TYPE NATRIURETIC FACTOR Routine 07/20/2020 (BNP) 4:44 AM CDT CALCIUM, IONIZED Routine 07/20/2020 4:44 AM CDT CBC (HEMOGRAM ONLY) Routine 07/20/2020 4:44 AM CDT MAGNESIUM Routine 07/20/2020 4:44 AM CDT BASIC METABOLIC PANEL (7) Routine 07/20/2020 4:44 AM CDT POCT-GLUCOSE METER Routine 07/19/2020 9:19 PM CDT POCT-GLUCOSE METER Routine 07/19/2020 6:13 PM CDT POCT-GLUCOSE METER Routine 07/19/2020 4:23 PM CDT HEMOGLOBIN AND HEMATOCRIT STAT 07/19/2020 3:52 PM CDT PSEUDOANEURYSM GROIN STAT 07/19/2020 DOPPLER LEFT 12:30 PM CDT POCT-GLUCOSE METER Routine 07/19/2020 11:11 AM CDT HEMOGLOBIN AND HEMATOCRIT STAT 07/19/2020 9:07 AM CDT POCT-GLUCOSE METER Routine 07/19/2020 7:15 AM CDT CBC W/PLT COUNT & AUTO Routine 07/19/2020 DIFFERENTIAL 4:06 AM CDT CBC W/PLT COUNT & AUTO Routine 07/19/2020 DIFFERENTIAL 4:06 AM CDT PHOSPHORUS Routine 07/19/2020 4:06 AM CDT COMPREHENSIVE METABOLIC Routine 07/19/2020 PANEL 4:06 AM CDT CALCIUM, IONIZED Routine 07/19/2020 4:06 AM CDT MAGNESIUM Routine 07/19/2020 4:06 AM CDT BASIC METABOLIC PANEL (7) Routine 07/18/2020 8:21 PM CDT HEMOGLOBIN AND HEMATOCRIT STAT 07/18/2020 8:21 PM CDT TRANSFUSION SERVICE 07/18/2020 REPORT - SCAN 6:32 PM CDT POCT-GLUCOSE METER Routine 07/18/2020 5:41 PM CDT POCT-ACT Routine 07/18/2020 3:59 PM CDT HEMOGLOBIN AND HEMATOCRIT Routine 07/18/2020 3:26 PM CDT POCT-ACT Routine 07/18/2020 12:23 PM CDT BLOOD GAS, ARTERIAL STAT 07/18/2020 12:07 PM CDT POCT-ACT Routine 07/18/2020 12:04 PM CDT POCT-ACT Routine 07/18/2020 11:50 AM CDT POCT-ACT Routine 07/18/2020 11:39 AM CDT PCI W/ IMPELLA MCR - IP 07/18/2020 Coronary ar jp disease PROC ONLY 10:24 AM CDT with angina pectori s, unspecified vessel or lesion type, unspecified whether [place]ski or transplanted heart (HCC) CBC W/PLT COUNT & AUTO Routine 07/18/2020 DIFFERENTIAL 5:00 AM CDT CBC W/PLT COUNT & AUTO Routine 07/18/2020 DIFFERENTIAL 5:00 AM CDT PHOSPHORUS Routine 07/18/2020 5:00 AM CDT COMPREHENSIVE METABOLIC Routine 07/18/2020 PANEL 5:00 AM CDT CALCIUM, IONIZED Routine 07/18/2020 5:00 AM CDT MAGNESIUM Routine 07/18/2020 5:00 AM CDT POCT-GLUCOSE METER Routine 07/17/2020 11:24 PM CDT VASCULAR DIAGRAM -SCAN 07/17/2020 3:03 PM CDT ABORH, MANUAL STAT 07/17/2020 12:55 PM CDT POCT-GLUCOSE METER Routine 07/17/2020 8:09 AM CDT TYPE AND SCREEN, Add-On 07/17/2020 AUTOMATED 6:56 AM CDT MAGNESIUM STAT 07/17/2020 6:56 AM CDT BASIC METABOLIC PANEL (7) STAT 07/17/2020 6:56 AM CDT MAGNESIUM Routine 07/17/2020 4:47 AM CDT BASIC METABOLIC PANEL (7) Routine 07/17/2020 4:47 AM CDT PHOSPHORUS Routine 07/17/2020 4:47 AM CDT POCT-GLUCOSE METER Routine 07/16/2020 10:48 PM CDT POCT-GLUCOSE METER Routine 07/16/2020 4:09 PM CDT POCT-GLUCOSE METER Routine 07/16/2020 11:07 AM CDT POCT-GLUCOSE METER Routine 07/16/2020 6:08 AM CDT CBC W/PLT COUNT & AUTO Routine 07/16/2020 DIFFERENTIAL 4:46 AM CDT CBC W/PLT COUNT & AUTO Routine 07/16/2020 DIFFERENTIAL 4:46 AM CDT CALCIUM, IONIZED Routine 07/16/2020 4:46 AM CDT PHOSPHORUS STAT 07/16/2020 4:46 AM CDT MAGNESIUM Routine 07/16/2020 4:46 AM CDT BASIC METABOLIC PANEL (7) Routine 07/16/2020 4:46 AM CDT POCT-GLUCOSE METER Routine 07/15/2020 10:13 PM CDT MAGNESIUM Routine 07/15/2020 4:28 PM CDT BASIC METABOLIC PANEL (7) Routine 07/15/2020 4:28 PM CDT POCT-GLUCOSE METER Routine 07/15/2020 4:12 PM CDT POCT-GLUCOSE METER Routine 07/15/2020 11:11 AM CDT POCT-GLUCOSE METER Routine 07/15/2020 7:03 AM CDT CBC W/PLT COUNT & AUTO Routine 07/15/2020 DIFFERENTIAL 4:22 AM CDT CBC W/PLT COUNT & AUTO Routine 07/15/2020 DIFFERENTIAL 4:22 AM CDT COMPREHENSIVE METABOLIC Routine 07/15/2020 PANEL 4:22 AM CDT CALCIUM, IONIZED Routine 07/15/2020 4:22 AM CDT PHOSPHORUS STAT 07/15/2020 4:22 AM CDT MAGNESIUM Routine 07/15/2020 4:22 AM CDT PLATELET AGGREGATION: Routine 07/15/2020 FUNCTION SCREEN 4:22 AM CDT POCT-GLUCOSE METER Routine 07/14/2020 9:16 PM CDT MAGNESIUM Routine 07/14/2020 5:32 PM CDT BASIC METABOLIC PANEL (7) Routine 07/14/2020 5:32 PM CDT POCT-GLUCOSE METER Routine 07/14/2020 4:18 PM CDT BLOOD GAS, ARTERIAL Routine 07/14/2020 1:09 PM CDT DLCO (SINGLE BREATH Routine 07/14/2020 DIFFUSION) 12:39 PM CDT BEDSIDE SPIROMETRY Routine 07/14/2020 12:39 PM CDT LUNG VOLUMES Routine 07/14/2020 12:39 PM CDT CBC W/PLT COUNT & AUTO Routine 07/14/2020 DIFFERENTIAL 5:17 AM CDT CBC W/PLT COUNT & AUTO Routine 07/14/2020 DIFFERENTIAL 5:17 AM CDT OXYGEN SATURATION, Routine 07/14/2020 MEASURED 5:17 AM CDT PHOSPHORUS STAT 07/14/2020 5:17 AM CDT MAGNESIUM Routine 07/14/2020 5:17 AM CDT BASIC METABOLIC PANEL (7) Routine 07/14/2020 5:17 AM CDT POCT-GLUCOSE METER Routine 07/13/2020 9:06 PM CDT PV ARTERIAL PAUL Routine 07/13/2020 UNILATERAL 5:24 PM CDT MAGNESIUM Routine 07/13/2020 4:28 PM CDT BASIC METABOLIC PANEL (7) Routine 07/13/2020 4:28 PM CDT POCT-GLUCOSE METER Routine 07/13/2020 4:27 PM CDT VEIN MAPPING LEGS Routine 07/13/2020 BILATERAL 1:00 PM CDT CAROTID DOPPLER BILATERAL Routine 07/13/2020 1:00 PM CDT ARTERIAL DOPPLER LEGS Routine 07/13/2020 BILATERAL 1:00 PM CDT SARS-COV2/RT-PCR ([facility] & Routine 07/13/2020 REF LABS) 12:11 PM CDT POCT-GLUCOSE METER Routine 07/13/2020 11:02 AM CDT POCT-GLUCOSE METER Routine 07/13/2020 7:09 AM CDT OXYGEN SATURATION, Routine 07/13/2020 MEASURED 3:51 AM CDT CBC W/PLT COUNT & AUTO Routine 07/13/2020 DIFFERENTIAL 3:46 AM CDT CBC W/PLT COUNT & AUTO Routine 07/13/2020 DIFFERENTIAL 3:46 AM CDT COMPREHENSIVE METABOLIC Routine 07/13/2020 PANEL 3:46 AM CDT CALCIUM, IONIZED Routine 07/13/2020 3:46 AM CDT PHOSPHORUS STAT 07/13/2020 3:46 AM CDT MAGNESIUM Routine 07/13/2020 3:46 AM CDT POCT-GLUCOSE METER Routine 07/12/2020 10:37 PM CDT POCT-GLUCOSE METER Routine 07/12/2020 4:21 PM CDT OXYGEN SATURATION, Routine 07/12/2020 MEASURED 3:32 PM CDT PHOSPHORUS STAT 07/12/2020 3:31 PM CDT MAGNESIUM Routine 07/12/2020 3:31 PM CDT BASIC METABOLIC PANEL (7) Routine 07/12/2020 3:31 PM CDT POCT-GLUCOSE METER Routine 07/12/2020 11:01 AM CDT PLATELET AGGREGATION: AP Routine 07/12/2020 FUNCTION SCREEN 10:35 AM CDT PHOSPHORUS STAT 07/12/2020 10:35 AM CDT MAGNESIUM Routine 07/12/2020 10:35 AM CDT BASIC METABOLIC PANEL (7) Routine 07/12/2020 10:35 AM CDT CBC W/PLT COUNT & AUTO Routine 07/12/2020 DIFFERENTIAL 3:35 AM CDT CBC W/PLT COUNT & AUTO Routine 07/12/2020 DIFFERENTIAL 3:35 AM CDT PHOSPHORUS Routine 07/12/2020 3:35 AM CDT COMPREHENSIVE METABOLIC Routine 07/12/2020 PANEL 3:35 AM CDT CALCIUM, IONIZED Routine 07/12/2020 3:35 AM CDT PHOSPHORUS STAT 07/12/2020 1:27 AM CDT MAGNESIUM Routine 07/12/2020 1:27 AM CDT BASIC METABOLIC PANEL (7) Routine 07/12/2020 1:27 AM CDT POCT-GLUCOSE METER Routine 07/11/2020 9:16 PM CDT POCT-GLUCOSE METER Routine 07/11/2020 4:51 PM CDT POCT-GLUCOSE METER Routine 07/11/2020 4:16 PM CDT PHOSPHORUS STAT 07/11/2020 4:14 PM CDT MAGNESIUM Routine 07/11/2020 4:14 PM CDT BASIC METABOLIC PANEL (7) Routine 07/11/2020 4:14 PM CDT POCT-GLUCOSE METER Routine 07/11/2020 10:49 AM CDT PHOSPHORUS STAT 07/11/2020 9:53 AM CDT MAGNESIUM Routine 07/11/2020 9:53 AM CDT BASIC METABOLIC PANEL (7) Routine 07/11/2020 9:53 AM CDT POCT-GLUCOSE METER Routine 07/11/2020 7:07 AM CDT CBC W/PLT COUNT & AUTO Routine 07/11/2020 DIFFERENTIAL 3:52 AM CDT CBC W/PLT COUNT & AUTO Routine 07/11/2020 DIFFERENTIAL 3:52 AM CDT COMPREHENSIVE METABOLIC Routine 07/11/2020 PANEL 3:52 AM CDT CALCIUM, IONIZED Routine 07/11/2020 3:52 AM CDT PHOSPHORUS STAT 07/11/2020 3:52 AM CDT MAGNESIUM Routine 07/11/2020 3:52 AM CDT BASIC METABOLIC PANEL (7) Routine 07/11/2020 3:52 AM CDT BLOOD GAS, VENOUS Routine 07/10/2020 4:58 PM CDT PHOSPHORUS STAT 07/10/2020 4:58 PM CDT MAGNESIUM Routine 07/10/2020 4:58 PM CDT BASIC METABOLIC PANEL (7) Routine 07/10/2020 4:58 PM CDT POCT-GLUCOSE METER Routine 07/10/2020 4:36 PM CDT POCT-GLUCOSE METER Routine 07/10/2020 11:08 AM CDT PHOSPHORUS STAT 07/10/2020 8:42 AM CDT MAGNESIUM Routine 07/10/2020 8:42 AM CDT BASIC METABOLIC PANEL (7) Routine 07/10/2020 8:42 AM CDT POCT-GLUCOSE METER Routine 07/10/2020 7:31 AM CDT CBC W/PLT COUNT & AUTO Routine 07/10/2020 DIFFERENTIAL 3:08 AM CDT CBC W/PLT COUNT & AUTO Routine 07/10/2020 DIFFERENTIAL 3:08 AM CDT BASIC METABOLIC PANEL (7) Routine 07/10/2020 3:05 AM CDT PHOSPHORUS STAT 07/10/2020 3:05 AM CDT MAGNESIUM Routine 07/10/2020 3:05 AM CDT POCT-GLUCOSE METER Routine 07/09/2020 10:09 PM CDT PHOSPHORUS STAT 07/09/2020 5:53 PM CDT MAGNESIUM Routine 07/09/2020 5:53 PM CDT BASIC METABOLIC PANEL (7) Routine 07/09/2020 5:53 PM CDT POCT-GLUCOSE METER Routine 07/09/2020 4:07 PM CDT POCT-GLUCOSE METER Routine 07/09/2020 11:18 AM CDT POCT-GLUCOSE METER Routine 07/09/2020 7:28 AM CDT POTASSIUM-STAT LAB STAT 07/09/2020 6:00 AM CDT CBC W/PLT COUNT & AUTO Routine 07/09/2020 DIFFERENTIAL 2:58 AM CDT CBC W/PLT COUNT & AUTO Routine 07/09/2020 DIFFERENTIAL 2:58 AM CDT PHOSPHORUS STAT 07/09/2020 2:58 AM CDT MAGNESIUM Routine 07/09/2020 2:58 AM CDT BASIC METABOLIC PANEL (7) Routine 07/09/2020 2:58 AM CDT POCT-GLUCOSE METER Routine 07/08/2020 10:51 PM CDT PHOSPHORUS STAT 07/08/2020 4:05 PM CDT MAGNESIUM Routine 07/08/2020 4:05 PM CDT BASIC METABOLIC PANEL (7) Routine 07/08/2020 4:05 PM CDT POCT-GLUCOSE METER Routine 07/08/2020 4:00 PM CDT POCT-GLUCOSE METER Routine 07/08/2020 10:57 AM CDT POCT-GLUCOSE METER Routine 07/08/2020 6:43 AM CDT CBC W/PLT COUNT & AUTO STAT 07/08/2020 DIFFERENTIAL 4:30 AM CDT OXYGEN SATURATION, Routine 07/08/2020 MEASURED 4:30 AM CDT PHOSPHORUS Routine 07/08/2020 4:30 AM CDT CBC W/PLT COUNT & AUTO STAT 07/08/2020 DIFFERENTIAL 4:30 AM CDT MAGNESIUM Routine 07/08/2020 4:30 AM CDT BASIC METABOLIC PANEL (7) Routine 07/08/2020 4:30 AM CDT OXYGEN SATURATION, STAT 07/08/2020 MEASURED 12:21 AM CDT CBC W/PLT COUNT & AUTO STAT 07/08/2020 DIFFERENTIAL 12:16 AM CDT CBC W/PLT COUNT & AUTO STAT 07/08/2020 DIFFERENTIAL 12:16 AM CDT PHOSPHORUS STAT 07/08/2020 12:16 AM CDT CALCIUM, IONIZED STAT 07/08/2020 12:16 AM CDT MAGNESIUM STAT 07/08/2020 12:16 AM CDT CBC (HEMOGRAM ONLY) Routine 07/08/2020 12:16 AM CDT BASIC METABOLIC PANEL (7) Routine 07/08/2020 12:16 AM CDT ECG 12-LEAD Routine 07/08/2020 12:11 AM CDT XR CHEST 1 VIEW STAT 07/08/2020 PORTABLE/BEDSIDE 12:09 AM CDT L CATH & PCI 07/07/2020 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, unspecified vessel or lesion type, unspecified whether [place] or transplanted heart (HCC) POCT-GLUCOSE METER Routine 07/07/2020 12:04 PM CDT RHYTHM STRIP - SCAN 07/07/2020 12:01 PM CDT POCT-GLUCOSE METER Routine 07/07/2020 6:54 AM CDT MAGNESIUM Routine 07/07/2020 4:29 AM CDT BASIC METABOLIC PANEL (7) Routine 07/07/2020 4:29 AM CDT POCT-GLUCOSE METER Routine 07/06/2020 9:34 PM CDT POCT-GLUCOSE METER Routine 07/06/2020 4:58 PM CDT XR CHEST 1 VIEW ANA 07/06/2020 PORTABLE/BEDSIDE 2:55 PM CDT SARS-COV2/RT-PCR ([facility] & Routine 07/06/2020 REF LABS) 12:13 PM CDT POCT-GLUCOSE METER Routine 07/06/2020 11:42 AM CDT POCT-GLUCOSE METER Routine 07/06/2020 7:29 AM CDT CBC W/PLT COUNT & AUTO Routine 07/06/2020 DIFFERENTIAL 5:21 AM CDT CALCIUM, IONIZED Routine 07/06/2020 5:21 AM CDT PHOSPHORUS Routine 07/06/2020 5:21 AM CDT B-TYPE NATRIURETIC FACTOR Routine 07/06/2020 (BNP) 5:21 AM CDT CBC W/PLT COUNT & AUTO Routine 07/06/2020 DIFFERENTIAL 5:21 AM CDT MAGNESIUM Routine 07/06/2020 5:21 AM CDT BASIC METABOLIC PANEL (7) Routine 07/06/2020 5:21 AM CDT POCT-GLUCOSE METER Routine 07/05/2020 4:36 PM CDT POCT-GLUCOSE METER Routine 07/05/2020 11:30 AM CDT MAGNESIUM Routine 07/05/2020 10:16 AM CDT BASIC METABOLIC PANEL (7) Routine 07/05/2020 10:16 AM CDT POCT-GLUCOSE METER Routine 07/05/2020 7:45 AM CDT POCT-GLUCOSE METER Routine 07/04/2020 9:10 PM CDT POCT-GLUCOSE METER Routine 07/04/2020 4:30 PM CDT POCT-GLUCOSE METER Routine 07/04/2020 11:59 AM CDT POCT-GLUCOSE METER Routine 07/04/2020 6:53 AM CDT CBC W/PLT COUNT & AUTO Routine 07/04/2020 DIFFERENTIAL 5:12 AM CDT PHOSPHORUS Routine 07/04/2020 5:12 AM CDT CALCIUM, IONIZED Routine 07/04/2020 5:12 AM CDT CBC W/PLT COUNT & AUTO Routine 07/04/2020 DIFFERENTIAL 5:12 AM CDT MAGNESIUM Routine 07/04/2020 5:12 AM CDT BASIC METABOLIC PANEL (7) Routine 07/04/2020 5:12 AM CDT POCT-GLUCOSE METER Routine 07/03/2020 9:07 PM CDT POCT-GLUCOSE METER Routine 07/03/2020 4:21 PM CDT BLOOD GAS, VENOUS Routine 07/03/2020 1:02 PM CDT POCT-GLUCOSE METER Routine 07/03/2020 11:48 AM CDT POCT-GLUCOSE METER Routine 07/03/2020 7:32 AM CDT B-TYPE NATRIURETIC FACTOR Routine 07/03/2020 (BNP) 5:11 AM CDT MAGNESIUM Routine 07/03/2020 5:11 AM CDT BASIC METABOLIC PANEL (7) Routine 07/03/2020 5:11 AM CDT POCT-GLUCOSE METER Routine 07/02/2020 9:24 PM CDT POCT-GLUCOSE METER Routine 07/02/2020 4:19 PM CDT POCT-GLUCOSE METER Routine 07/02/2020 11:23 AM CDT POCT-GLUCOSE METER Routine 07/02/2020 7:52 AM CDT CALCIUM, IONIZED Routine 07/02/2020 4:37 AM CDT MAGNESIUM Routine 07/02/2020 4:37 AM CDT BASIC METABOLIC PANEL (7) Routine 07/02/2020 4:37 AM CDT POCT-GLUCOSE METER Routine 07/01/2020 7:54 PM CDT POCT-GLUCOSE METER Routine 07/01/2020 4:12 PM CDT POCT-GLUCOSE METER Routine 07/01/2020 11:03 AM CDT POCT-GLUCOSE METER Routine 07/01/2020 8:21 AM CDT BLOOD GAS, ARTERIAL STAT 07/01/2020 6:09 AM CDT CBC W/PLT COUNT & AUTO Routine 07/01/2020 DIFFERENTIAL 4:55 AM CDT BLOOD GAS, VENOUS Routine 07/01/2020 4:55 AM CDT CBC W/PLT COUNT & AUTO Routine 07/01/2020 DIFFERENTIAL 4:55 AM CDT PHOSPHORUS Routine 07/01/2020 4:55 AM CDT COMPREHENSIVE METABOLIC Routine 07/01/2020 PANEL 4:55 AM CDT CALCIUM, IONIZED Routine 07/01/2020 4:55 AM CDT MAGNESIUM Routine 07/01/2020 4:55 AM CDT POCT-GLUCOSE METER Routine 06/30/2020 10:04 PM CDT POCT-GLUCOSE METER Routine 06/30/2020 5:01 PM CDT POCT-GLUCOSE METER Routine 06/30/2020 12:03 PM CDT POCT-GLUCOSE METER Routine 06/30/2020 11:16 AM CDT XR CHEST 1 VIEW ANA 06/30/2020 PORTABLE/BEDSIDE 10:11 AM CDT POCT-GLUCOSE METER Routine 06/30/2020 7:24 AM CDT CBC W/PLT COUNT & AUTO Routine 06/30/2020 DIFFERENTIAL 4:01 AM CDT PHOSPHORUS Routine 06/30/2020 4:01 AM CDT B-TYPE NATRIURETIC FACTOR Routine 06/30/2020 (BNP) 4:01 AM CDT CALCIUM, IONIZED Routine 06/30/2020 4:01 AM CDT CBC W/PLT COUNT & AUTO Routine 06/30/2020 DIFFERENTIAL 4:01 AM CDT MAGNESIUM Routine 06/30/2020 4:01 AM CDT BASIC METABOLIC PANEL (7) Routine 06/30/2020 4:01 AM CDT POCT-GLUCOSE METER Routine 06/29/2020 8:59 PM CDT NM LUNG SCAN (V/Q) STAT 06/29/2020 4:04 PM CDT BLOOD GAS, ARTERIAL STAT 06/29/2020 2:22 PM CDT SARS-COV2/RT-PCR ([facility] & Routine 06/29/2020 REF LABS) 12:48 PM CDT POCT-GLUCOSE METER Routine 06/29/2020 11:07 AM CDT KETONE, BLOOD Routine 06/29/2020 8:07 AM CDT HEPATIC FUNCTION PANEL Routine 06/29/2020 8:06 AM CDT LACTIC ACID, VENOUS Routine 06/29/2020 8:06 AM CDT BASIC METABOLIC PANEL (7) STAT 06/29/2020 8:06 AM CDT INSULIN, FASTING Routine 06/29/2020 8:06 AM CDT CORTISOL Routine 06/29/2020 8:05 AM CDT GROWTH HORMONE Routine 06/29/2020 8:05 AM CDT INSULIN-LIKE GROWTH Routine 06/29/2020 FACTOR 8:05 AM CDT C-PEPTIDE Routine 06/29/2020 8:04 AM CDT POCT-GLUCOSE METER Routine 06/29/2020 7:54 AM CDT POCT-GLUCOSE METER Routine 06/29/2020 7:25 AM CDT HEMOGLOBIN A1C Routine 06/29/2020 4:56 AM CDT MAGNESIUM Routine 06/29/2020 4:56 AM CDT BASIC METABOLIC PANEL (7) Routine 06/29/2020 4:56 AM CDT POCT-GLUCOSE METER Routine 06/28/2020 9:11 PM CDT POCT-GLUCOSE METER Routine 06/28/2020 3:42 PM CDT POCT-GLUCOSE METER Routine 06/28/2020 11:41 AM CDT POCT-GLUCOSE METER Routine 06/28/2020 8:10 AM CDT POCT-GLUCOSE METER Routine 06/28/2020 7:31 AM CDT POCT-GLUCOSE METER Routine 06/28/2020 6:23 AM CDT XR CHEST 1 VIEW Routine 06/28/2020 PORTABLE/BEDSIDE 5:08 AM CDT CBC W/PLT COUNT & AUTO Routine 06/28/2020 DIFFERENTIAL 4:55 AM CDT COMPREHENSIVE METABOLIC Routine 06/28/2020 PANEL 4:55 AM CDT B-TYPE NATRIURETIC FACTOR Routine 06/28/2020 (BNP) 4:55 AM CDT CALCIUM, IONIZED Routine 06/28/2020 4:55 AM CDT PHOSPHORUS Routine 06/28/2020 4:55 AM CDT MAGNESIUM STAT 06/28/2020 4:55 AM CDT BASIC METABOLIC PANEL (7) STAT 06/28/2020 4:55 AM CDT CBC W/PLT COUNT & AUTO Routine 06/28/2020 DIFFERENTIAL 4:55 AM CDT POCT-GLUCOSE METER Routine 06/28/2020 4:08 AM CDT POCT-GLUCOSE METER Routine 06/27/2020 10:41 PM CDT POCT-GLUCOSE METER Routine 06/27/2020 4:30 PM CDT POCT-GLUCOSE METER Routine 06/27/2020 11:40 AM CDT POCT-GLUCOSE METER Routine 06/27/2020 10:25 AM CDT POCT-GLUCOSE METER Routine 06/27/2020 8:23 AM CDT POCT-GLUCOSE METER Routine 06/27/2020 7:35 AM CDT POCT-GLUCOSE METER Routine 06/27/2020 7:02 AM CDT CBC W/PLT COUNT & AUTO Routine 06/27/2020 DIFFERENTIAL 5:05 AM CDT CALCIUM, IONIZED Routine 06/27/2020 5:05 AM CDT PHOSPHORUS Routine 06/27/2020 5:05 AM CDT MAGNESIUM STAT 06/27/2020 5:05 AM CDT BASIC METABOLIC PANEL (7) STAT 06/27/2020 5:05 AM CDT CBC W/PLT COUNT & AUTO Routine 06/27/2020 DIFFERENTIAL 5:05 AM CDT POCT-GLUCOSE METER Routine 06/26/2020 8:58 PM CDT POCT-GLUCOSE METER Routine 06/26/2020 4:40 PM CDT POCT-GLUCOSE METER Routine 06/26/2020 10:46 AM CDT POCT-GLUCOSE METER Routine 06/26/2020 9:35 AM CDT POCT-GLUCOSE METER Routine 06/26/2020 8:55 AM CDT CBC W/PLT COUNT & AUTO Routine 06/26/2020 DIFFERENTIAL 7:23 AM CDT CALCIUM, IONIZED Routine 06/26/2020 7:23 AM CDT PHOSPHORUS Routine 06/26/2020 7:23 AM CDT MAGNESIUM STAT 06/26/2020 7:23 AM CDT BASIC METABOLIC PANEL (7) STAT 06/26/2020 7:23 AM CDT CBC W/PLT COUNT & AUTO Routine 06/26/2020 DIFFERENTIAL 7:23 AM CDT POCT-GLUCOSE METER Routine 06/26/2020 6:55 AM CDT POCT-GLUCOSE METER Routine 06/25/2020 8:57 PM CDT POCT-GLUCOSE METER Routine 06/25/2020 4:36 PM CDT POCT-GLUCOSE METER Routine 06/25/2020 11:43 AM CDT POCT-GLUCOSE METER Routine 06/25/2020 6:55 AM CDT CBC W/PLT COUNT & AUTO Routine 06/25/2020 DIFFERENTIAL 6:14 AM CDT CALCIUM, IONIZED Routine 06/25/2020 6:14 AM CDT PHOSPHORUS Routine 06/25/2020 6:14 AM CDT MAGNESIUM STAT 06/25/2020 6:14 AM CDT BASIC METABOLIC PANEL (7) STAT 06/25/2020 6:14 AM CDT CBC W/PLT COUNT & AUTO Routine 06/25/2020 DIFFERENTIAL 6:14 AM CDT POCT-GLUCOSE METER Routine 06/24/2020 9:08 PM CDT POCT-GLUCOSE METER Routine 06/24/2020 4:30 PM CDT POCT-GLUCOSE METER Routine 06/24/2020 11:37 AM CDT POCT-GLUCOSE METER Routine 06/24/2020 7:21 AM CDT CBC W/PLT COUNT & AUTO Routine 06/24/2020 DIFFERENTIAL 3:55 AM CDT B-TYPE NATRIURETIC FACTOR Routine 06/24/2020 (BNP) 3:55 AM CDT COMPREHENSIVE METABOLIC Routine 06/24/2020 PANEL 3:55 AM CDT CALCIUM, IONIZED Routine 06/24/2020 3:55 AM CDT PHOSPHORUS Routine 06/24/2020 3:55 AM CDT MAGNESIUM STAT 06/24/2020 3:55 AM CDT CBC W/PLT COUNT & AUTO Routine 06/24/2020 DIFFERENTIAL 3:55 AM CDT POCT-GLUCOSE METER Routine 06/23/2020 9:15 PM CDT POCT-GLUCOSE METER Routine 06/23/2020 4:34 PM CDT POCT-GLUCOSE METER Routine 06/23/2020 11:09 AM CDT POCT-GLUCOSE METER Routine 06/23/2020 6:54 AM CDT CBC W/PLT COUNT & AUTO Routine 06/23/2020 DIFFERENTIAL 3:36 AM CDT CALCIUM, IONIZED Routine 06/23/2020 3:36 AM CDT PHOSPHORUS Routine 06/23/2020 3:36 AM CDT COMPREHENSIVE METABOLIC Routine 06/23/2020 PANEL 3:36 AM CDT MAGNESIUM STAT 06/23/2020 3:36 AM CDT CBC W/PLT COUNT & AUTO Routine 06/23/2020 DIFFERENTIAL 3:36 AM CDT POCT-GLUCOSE METER Routine 06/23/2020 12:04 AM CDT POCT-GLUCOSE METER Routine 06/22/2020 5:41 PM CDT POCT-GLUCOSE METER Routine 06/22/2020 12:[address] BRAIN WITHOUT IV ANA 06/22/2020 CONTRAST 10:[address] CHEST WITHOUT IV ANA 06/22/2020 CONTRAST 10:30 AM CDT SPUTUM CULTURE + GRAM Routine 06/22/2020 STAIN 9:58 AM CDT 2D ECHO W/ DOPPLER ANA 06/22/2020 (CW/PW/COLOR) 7:43 AM CDT SARS-COV2/RT-PCR ([facility] & STAT 06/22/2020 REF LABS) 4:00 AM CDT CBC W/PLT COUNT & AUTO Routine 06/22/2020 DIFFERENTIAL 1:48 AM CDT HAPTOGLOBIN Routine 06/22/2020 1:48 AM CDT LACTATE DEHYDROGENASE Routine 06/22/2020 (LDH) 1:48 AM CDT FERRITIN Routine 06/22/2020 1:48 AM CDT IRON, TIBC, % SAT. Routine 06/22/2020 (WITHOUT FERRITIN) 1:48 AM CDT LIPID PANEL Routine 06/22/2020 1:48 AM CDT MAGNESIUM STAT 06/22/2020 1:48 AM CDT BASIC METABOLIC PANEL (7) STAT 06/22/2020 1:48 AM CDT CBC W/PLT COUNT & AUTO Routine 06/22/2020 DIFFERENTIAL 1:48 AM CDT TROPONIN I STAT 06/22/2020 1:48 AM CDT ECG 12-LEAD STAT 06/22/2020 12:03 AM CDT POCT-GLUCOSE METER Routine 06/21/2020 11:44 PM CDT US RENAL COMPLETE ANA 06/21/2020 8:50 PM CDT RAPID INFLUENZA A&B Routine 06/21/2020 SCREEN 6:19 PM CDT WOUND CULTURE + GRAM Routine 06/21/2020 STAIN 6:15 PM CDT RESPIRATORY PANEL [facility] ANA 06/21/2020 6:15 PM CDT MRSA SCREEN Routine 06/21/2020 6:15 PM CDT BLOOD CULTURE Routine 06/21/2020 5:35 PM CDT CBC W/PLT COUNT & AUTO Routine 06/21/2020 DIFFERENTIAL 5:34 PM CDT CREATINE KINASE (CK) Routine 06/21/2020 5:34 PM CDT TROPONIN I Routine 06/21/2020 5:34 PM CDT B-TYPE NATRIURETIC FACTOR STAT 06/21/2020 (BNP) 5:34 PM CDT CORTISOL Routine 06/21/2020 5:34 PM CDT PROCALCITONIN STAT 06/21/2020 5:34 PM CDT TSH/FREE T4 IF INDICATED Routine 06/21/2020 5:34 PM CDT BLOOD GAS, ARTERIAL STAT 06/21/2020 5:34 PM CDT LACTIC ACID, VENOUS STAT 06/21/2020 5:34 PM CDT MAGNESIUM STAT 06/21/2020 5:34 PM CDT COMPREHENSIVE METABOLIC Routine 06/21/2020 PANEL 5:34 PM CDT FIBRINOGEN Routine 06/21/2020 5:34 PM CDT APTT Routine 06/21/2020 5:34 PM CDT PROTHROMBIN TIME/INR Routine 06/21/2020 5:34 PM CDT CBC W/PLT COUNT & AUTO Routine 06/21/2020 DIFFERENTIAL 5:34 PM CDT ECG 12-LEAD ANA 06/21/2020 5:33 PM CDT URINALYSIS W/ REFLEX STAT 06/21/2020 URINE CULTURE 5:18 PM CDT CREATININE, RANDOM URINE Routine 06/21/2020 5:18 PM CDT OSMOLALITY, URINE Routine 06/21/2020 5:18 PM CDT SODIUM, RANDOM URINE Routine 06/21/2020 5:18 PM CDT LEGIONELLA URINE ANTIGEN Routine 06/21/2020 5:18 PM CDT STREP PNEUMONIAE ANTIGEN Routine 06/21/2020 5:18 PM CDT BLOOD CULTURE Routine 06/21/2020 4:25 PM CDT XR CHEST 1 VIEW ANA 06/21/2020 PORTABLE/BEDSIDE 3:26 PM CDT after 07/30/2019 Results * POC-Glucose meter (07/28/2020 11:36 AM CDT) Only the most recent of 147 results within the time period is included. POC-Glucose Meter 203 (H)Comment: : Notified 70 - 110 mg/dL [facility] RN/MD: TESTED AT [facility] [id number] [facility], [id number]: Differential Tester/Condominium Association Manager ID = [id number] for MARILU SORTO Specimen Blood Performing Organization Address City/State/Zipcode Ph one Number [facility] [address] [place], [place] [address] [facility] * Calcium, Ionized (07/28/2020 5:17 AM CDT) Only the most recent of 24 results within the time period is included. Calcium, Ion 1.13 1.12 - 1.27 mmol/L [facility] pH, Blood 7.35 [facility] Specimen Blood Performing Organization Address City/State/Zipcode Ph one Number [facility] [address] [place], [place] [address] [facility] * CBC with platelet count + automated diff (07/28/2020 5:17 AM CDT) Only the most recent of 25 results within the time period is included. WBC 9.3 3.5 - 10.5 K/L [facility] RBC 3.33 (L) 4.63 - 6.08 M/L [facility] Hemoglobin 10.3 (L) 13.7 - 17.5 GM/DL [facility] Hematocrit 34.3 (L) 40.1 - 51.0 % [facility] MCV 103.0 (H) 79.0 - 92.2 fL [facility] MCH 30.9 25.7 - 32.2 pg [facility] MCHC 30.0 (L) 32.3 - 36.5 GM/DL [facility] RDW 17.9 (H) 11.6 - 14.4 % [facility] Platelets 128 (L) 150 - 450 K/CU MM [facility] MPV 11.0 9.4 - 12.4 fL [facility] nRBC 2 (H) 0 - 0 /100 WBC [facility] % Neutros 81 % [facility] % Lymphs 9 % [facility] % Monos 8 % [facility] % Eos 1 % [facility] % Baso 0 % [facility] # Neutros 7.47 (H) 1.78 - 5.38 K/L [facility] # Lymphs 0.79 (L) 1.32 - 3.57 K/L [facility] # Monos 0.70 0.30 - 0.82 K/L [facility] # Eos 0.12 0.04 - 0.54 K/L [facility] # Baso 0.02 0.01 - 0.08 K/L [facility] Immature 2 (H) 0 - 1 % [facility] Granulocytes-[facility] Specimen Blood Performing Organization Address City/[facility] Ph one [address] * Phosphorus (07/28/2020 5:17 AM CDT) Only the most recent of 37 results within the time period is included. Phosphorus 2.3 2.3 - 4.7 mg/dL [facility] Specimen Blood Narrative Performed At Differential Tester [facility] Performing Organization Address City/State[facility] Ph one Number [address] * Magnesium (07/28/2020 5:17 AM CDT) Only the most recent of 51 results within the time period is included. Magnesium 1.9 1.6 - 2.6 mg/dL [facility] Specimen Blood Narrative Performed At Differential Tester ID [facility] Performing Organization Address City/State/Zipcode Ph one Number [facility] [address] [place], [place] [address] [facility] * Comprehensive metabolic panel (07/28/2020 5:17 AM CDT) Only the most recent of 12 results within the time period is included. Protein, Total 6.1 6.0 - 8.3 gm/dL [facility] Albumin 3.8 3.5 - 5.0 g/dL [facility] Alkaline Phosphatase 88 40 - 150 U/L [facility] Total Bilirubin 0.8 0.2 - 1.2 mg/dL [facility] Sodium 138 136 - 145 meq/L [facility] Potassium 3.6 3.5 - 5.1 meq/L [facility] Chloride 94 (L) 98 - 107 meq/L [facility] CO2 35 (H) 22 - 29 meq/L [facility] BUN 37 (H) 7 - 21 mg/dL [facility] Creatinine 1.54 (H) 0.57 - 1.25 mg/dL [facility] Glucose 173 (H) 70 - 105 mg/dL [facility] Calcium 8.3 (L) 8.4 - 10.2 mg/dL [facility] AST 14 5 - 34 U/L [facility] ALT 35 6 - 55 U/L [facility] EGFR 44Comment: ESTIMATED GFR IS mL/min/1.73 sq m [facility] NOT ACCURATE CREATININE [facility] CLEARANCE IN PREDICTING GLOMERULAR FILTRATION RATE. ESTIMATED GFR IS NOT APPLICABLE FOR DIALYSIS PATIENTS. Specimen Blood Narrative Performed At Differential Tester [place] - [place] [facility] Performing Organization Address [facility] Ph one Number [facility] [address] [place], [place] [address] [facility] * CBC (Hemogram only) (07/27/2020 5:07 AM CDT) Only the most recent of 9 results within the time period is included. WBC 6.4 3.5 - 10.5 K/L [facility] RBC 3.05 (L) 4.63 - 6.08 M/L [facility] Hemoglobin 9.3 (L) 13.7 - 17.5 GM/DL [facility] Hematocrit 31.2 (L) 40.1 - 51.0 % [facility] MCV 102.3 (H) 79.0 - 92.2 fL [facility] MCH 30.5 25.7 - 32.2 pg [facility] MCHC 29.8 (L) 32.3 - 36.5 GM/DL [facility] RDW 17.6 (H) 11.6 - 14.4 % [facility] Platelets 115 (L) 150 - 450 K/CU MM [facility] MPV 10.3 9.4 - 12.4 fL [facility] nRBC 2 (H) 0 - 0 /100 WBC [facility] Specimen Blood Performing Organization Address City/[facility] Ph one Number [facility] [address] [place] [address] [facility] * Basic Metabolic Panel (07/27/2020 5:07 AM CDT) Only the most recent of 44 results within the time period is included. Sodium 139 136 - 145 meq/L [facility] Potassium 3.6 3.5 - 5.1 meq/L [facility] Chloride 95 (L) 98 - 107 meq/L [facility] CO2 37 (H) 22 - 29 meq/L [facility] BUN 33 (H) 7 - 21 mg/dL [facility] Creatinine 1.54 (H) 0.57 - 1.25 mg/dL [facility] Glucose 199 (H) 70 - 105 mg/dL [facility] Calcium 8.0 (L) 8.4 - 10.2 mg/dL [facility] EGFR 44Comment: ESTIMATED GFR IS mL/min/1.73 sq m [facility] NOT ACCURATE CREATININE [facility] CLEARANCE IN PREDICTING GLOMERULAR FILTRATION RATE. ESTIMATED GFR IS NOT APPLICABLE FOR DIALYSIS PATIENTS. Specimen Blood Narrative Performed At Differential Tester ID - EDASI [facility] Performing Organization Address City/State/[facility] Ph one Number [facility] [address] [place] [address] MEDICAL CENTER * 2D Echo W/Doppler(CW/PW/Color) (07/26/2020 3:25 PM CDT) Ejection Fraction [facility] ECHO [facility] Specimen Narrative Performed At Transthoracic Echocardiography Report (TTE) [facility] ECH O HEARTLAB Demographics [facility] Patient Name STEVE BENEDICT Date of Study 07/26/2020 [id number] GenderMale Visit Number [id number] RaceUnk leisan [id number] Room Number 1447 Number Date of Birth1945 Referring Physician Santosh Bruno MD Age74 year(s) 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 Clinical History Former smoker, L cath/PCI 07/07/20, COPD , Acute on chronic respiratory failure with hypoxia and hypercapnia, H FrEF HGB 9.5 HCT 32.2 % Contrast Medium: Definity. Amount - 2 m l Height: 69 inches Weight: 98.43 kg (217 lbs) BSA: 2.14 m^2 BMI: 32.04 kg/m^2 HR: 86 bpm BP: 126/70 mmHg Summary 1. LV is normal size and function. All segments contract normally. LVEF is increased (>70%) . 2. RV is normal size. RV function is mi ldly reduced. 3. Estimated peak systolic PA pressure is 45-50 mmHg (mild pulmonary hypertension) . 4. The estimated RA pressure by IVC dyn amics 5-10mmHg Previous Study In comparison with the prior exam 2019 the following changes are noted: left ventricular systolic functi on is normal . Signature Findings Technical Quality: Technically difficul t exam. Left Ventricle LV endoc ardium is adequately visualized with IV ultrasound enhancing agent. The left ventricle is chamber size (by vol index) is normal (male - LVED vol - 34-74ml/m2). Mild concentric LV hypertrophy. All of the LV segments are hyperkinetic . Global LV systolic function hyperdynamic . LVEF by Fritz's method of disk assessment is increased (>70%) . Degree of diastolic dysfunction (LAP assessment) is inconclusive due to arrhythmia . Left AtriumLA s ize is severely enlarged (>48 ml/m2) . Right VentricleRV chamb er size is normal . Global RV systolic function is mildly reduced . Right Atrium RA cav ity size is moderately enlarged . Aortic Valve Mild A oV cusp thickening. No evidence of aortic regurgitation. Mitral Valve Mild m itral annular calcification. Mild mitral regurgitation. Tricuspid ValveTV struc ture is normal. Mild tricuspid regurgitation. Estimated peak systolic PA pressure is 45-50 mmHg (mild pulmonary hypertension) . Pulmonic Valve Normal P V structure and function by limited views and Doppler. Aorta Aortic root size (SInus of Valsalva diameter) is normal . PericardiumNo p ericardial effusion is visualized. IVC/SVC/PA/PV/PleuralThe estimated RA pressure by IVC dynamics 5-10mmHg . Chambers/Structures Left Atrium LA Volume: 105.62 ml LA Area: 28.58 cm^2 LA Vol. Index: 49 ml/m^2 Left Ventricle LVIDd: 5.36 cm LV Septum Diastolic: 1.24 cm LV PW Diastolic: 1.2 cm LVEDV Fritz's:90.17 ml LVESV Fritz's:23.48 ml LVEF Fritz's: 74 % LVEDVI: 42 ml/m^2 LVESVI: 11 ml/m^2 LVOT Diameter: 2.2 cm Right Ventricle RVOT VTI: 11.78 cm Aorta Ao Root S of Kiera.: 3.39 cm Ascending Aorta: 2.51 cm Doppler/Quantitative Measurements Aortic Valve Peak Velocity: 1.04 m/s Mean Velocity: 0.72 m/s Peak Gradient: 4.35 mmHg Mean Gradient: 2.42 mmHg AV Area (continuity): 3.77 cm^2 AV VTI: 17.47 cm AV DVI: 0.99 LVOT Peak Velocity: 0.96 m/s Peak Gradient: 3.68 mmHg Mean Velocity: 0.64 m/s Mean Gradient: 1.93 mmHg LVOT Diameter: 2.2 cm LVOT VTI: 17.34 cm LVOT Area: 3.8 cm^2 LVOT SV:65.88 ml LVOT CO: 5.67 l/min LVOT CI: 2.65 l/min/m^2 Tricuspid Valve TR Velocity: 3.16 m/s TR Gradient: 39.83 mmHg Procedure Note Interface, External Ris In - 07/26/2020 7:14 PM CDT Transthoracic Echocardiography Report (TTE) Demographics Patient Name STEVE BENEDICT Date of Study 07/26/2020 Gender Male Visit Number [id number] Race Unknown Room Number 1447 Number Date of 1945 Referring Physician Santosh Bruno MD Age 74 year(s) 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 Clinical History Former smoker, L cath/PCI 07/07/20, COPD, Acute on chronic respiratory failure with hypoxia and hypercapnia, HFrEF HGB 9.5 HCT 32.2 % Contrast Medium: Definity. Amount - 2 ml Height: 69 inches Weight: 98.43 kg (217 lbs) BSA: 2.14 m^2 BMI: 32.04 kg/m^2 HR: 86 bpm BP: 126/70 mmHg Summary 1. LV is normal size and function. All segments contract normally. LVEF is increased (>70%) . 2. RV is normal size. RV function is mildly reduced. 3. Estimated peak systolic PA pressure is 45-50 mmHg (mild pulmonary hypertension) . 4. The estimated RA pressure by IVC dynamics 5-10mmHg Previous Study In comparison with the prior exam 06/22/2020 the following changes are noted: left ventricular systolic function is normal . Signature Findings Technical Quality: Technically difficult exam. Left Ventricle LV endocardium is adequately visualized with IV ultrasound enhancing agent. The left ventricle is chamber size (by vol index) is normal (male - LVED vol - 34-74ml/m2). Mild concentric LV hypertrophy. All of the LV segments are hyperkinetic . Global LV systolic function hyperdynamic . LVEF by Fritz's method of disk assessment is increased (>70%) . Degree of diastolic dysfunction (LAP assessment) is inconclusive due to arrhythmia . Left Atrium LA size is severely enlarged (>48 ml/m2) . Right Ventricle RV chamber size is normal . Global RV systolic function is mildly reduced . Right Atrium RA cavity size is moderately enlarged . Aortic Valve Mild AoV cusp thickening. No evidence of aortic regurgitation. Mitral Valve Mild mitral annular calcification. Mild mitral regurgitation. Tricuspid Valve TV structure is normal. Mild tricuspid regurgitation. Estimated peak systolic PA pressure is 45-50 mmHg (mild pulmonary hypertension) . Pulmonic Valve Normal PV structure and function by limited views and Doppler. Aorta Aortic root size (SInus of Valsalva diameter) is normal . Pericardium No pericardial effusion is visualized. IVC/SVC/PA/PV/Pleural The estimated RA pressure by IVC dynamics 5-10mmHg . Chambers/Structures Left Atrium LA Volume: 105.62 ml LA Area: 28.58 cm^2 LA Vol. Index: 49 ml/m^2 Left Ventricle LVIDd: 5.36 cm LV Septum Diastolic: 1.24 cm LV PW Diastolic: 1.2 cm LVEDV Fritz's:90.17 ml LVESV Fritz's:23.48 ml LVEF Fritz's: 74 % LVEDVI: 42 ml/m^2 LVESVI: 11 ml/m^2 LVOT Diameter: 2.2 cm Right Ventricle RVOT VTI: 11.78 cm Aorta Ao Root S of Kiera.: 3.39 cm Ascending Aorta: 2.51 cm Doppler/Quantitative Measurements Aortic Valve Peak Velocity: 1.04 m/s Mean Velocity: 0.72 m/s Peak Gradient: 4.35 mmHg Mean Gradient: 2.42 mmHg AV Area (continuity): 3.77 cm^2 AV VTI: 17.47 cm AV DVI: 0.99 LVOT Peak Velocity: 0.96 m/s Peak Gradient: 3.68 mmHg Mean Velocity: 0.64 m/s Mean Gradient: 1.93 mmHg LVOT Diameter: 2.2 cm LVOT VTI: 17.34 cm LVOT Area: 3.8 cm^2 LVOT SV:65.88 ml LVOT CO: 5.67 l/min LVOT CI: 2.65 l/min/m^2 Tricuspid Valve TR Velocity: 3.16 m/s TR Gradient: 39.83 mmHg Performing Organization Address City/State/[facility] Centercode Ph one Number SLEBecky ECHO HEARTLAB MKCKESSON CPACS * B-type Natriuretic Factor (BNP) (07/25/2020 6:28 AM CDT) Only the most recent of 8 results within the time period is included. BNP 566 (H) 0 - 100 pg/mL [facility] Specimen Blood Narrative Performed At Differential Tester ID - PIAYA L [facility] Performing Organization Address City/[facility] Ph one Number [place] [address] [facility] * Hemoglobin and hematocrit (07/21/2020 4:28 PM CDT) Only the most recent of 7 results within the time period is included. Hemoglobin 9.7 (L) 13.7 - 17.5 GM/DL [facility] Hematocrit 31.5 (L) 40.1 - 51.0 % [facility] Specimen Blood Narrative Performed At Differential Tester ID - [id number] [facility] Performing Organization Address [facility], [facility] one Number [place] [address] [phone] [place] [address] * PULMONARY FUNCTION - SCAN (07/21/2020 7:20 AM CDT) Narrative Performed At This result has an attachment that is n ot available. * SARS-CoV2/RT-PCR (Asymptomatic ONLY) (07/20/2020 7:27 PM CDT) Only the most recent of 5 results within the time period is included. SARS-COV2/RT-PCR Negative Not Detected, Negative, [facility] See external report for [facility] linked test SARS-COV-2 PERFORMING LAB [facility] ABDI [facility] Specimen Other Narrative Performed At Negative result for this test determine s that SARS-CoV-2 RNA was not present in [facility] the specimen above the Limit of Detecti on (LOD).However, Negative results do [facility] not preclude SARS-CoV-2 infection and s hould not be used as the sole basis for treatment or patient management chao carroll. Negative results must be combined with clinical observations, patient his tory, and epidemiological information. A false negative result may occur if a sp ecimen is improperly collected, transported or handled.A false nega tive result should be considered if patient's recent exposures or clinical presentation indicate that COVID-19 (SARS-CoV-2) is likely and diagnostic t ests for other causes of illness are negative.Re-testing should be consi dered in cases of suspected false negatives. The limit of detection for this assay i s 800 copies/mL. This SARS CoV-2 test is a real-time RT- PCR test intended for the qualitative detection of nucleic acid from SARS-CoV -2 in a nasopharyngeal swab specimen collected from individuals suspected of COVID-19 by their healthcare provider. This test has not been Food and Drug Ad ministration (FDA) cleared or approved.This is a modified version of an approved Emergency Use Authorization (EUA) and is in the proce ss of review by the FDA. Once authorized by the FDA, the issued EUA w ill be effective until the declaration that circumstances exist justifying the authorization of the emergency use of in vitro diagnostic tests for detection an d/or diagnosis of COVID-19 is terminated under Section 564(b)(2) of the Act or t he EUA is revoked under Section 564(g) of the Act. Fact Sheet for Healthcare Providers: https://www.[employer] [place]/sites/default/files/product/documents/Fact_Sheet_HC_Provi ogzf_Qkgl_VFZE-XrU-5.pdf Fact Sheet for Healthcare Patients: https://www.[employer].com/sites/default/files/product/documents/Fact_Sheet_Patients _Yobe_WIKG-SiO-1.pdf Performing Laboratory: [address] [place] [address] Performing Organization Address City/State/Zipcode Ph one Number [place] [address] [phone] [place] [address] * VASCULAR DIAGRAM -SCAN (07/20/2020 1:52 PM CDT) Only the most recent of 2 results within the time period is included. Narrative Performed At This result has an attachment that is n ot available. * XR chest 1 view portable / bedside (07/20/2020 7:19 AM CDT) Only the most recent of 6 results within the time period is included. Specimen Narrative Performed At FINAL REPORT GE RIS INDICATION: dyspnea COMPARISON: 07/08/2020 TECHNIQUE: Single frontal view of the c hest. FINDINGS: Lungs and pleura: Atelectasis within th e right midlung, unchanged No effusion. Heart and mediastinum: Normal heart siz e. Unremarkable mediastinal contours. Osseous structures: No acute abnormalit y. Other: None. IMPRESSION: No acute intrathoracic abnormality. Signed: Alyssa Montes MD Report Verified Date/Time: 0 09:18:57 [facility] Procedure Note Interface, External Ris In - 07/20/2020 9:21 AM CDT FINAL REPORT INDICATION: dyspnea COMPARISON: 07/08/2020 TECHNIQUE: Single frontal view of the chest. FINDINGS: Lungs and pleura: Atelectasis within the right midlung, unchanged No effusion. Heart and mediastinum: Normal heart size. Unremarkable mediastinal contours. Osseous structures: No acute abnormality. Other: None. IMPRESSION: No acute intrathoracic abnormality. Signed: Alyssa Montes MD Report Verified Date/Time: 07/20/2020 09:18:57 Reading Location: [facility] Radiology Reading Room Performing Organization Address City/[facility] Ph one Number GE RIS * Creatine Kinase (CK) (07/20/2020 4:44 AM CDT) Only the most recent of 2 results within the time period is included. Total CK 58 29 - 200 U/L [facility] Specimen Blood Narrative Performed At Differential Tester ID - HENRIETTA L [facility] Performing Organization Address City/State/Zipcode Ph one Number [facility] [address] [phone] [facility] * Pseudoaneurysm Groin Doppler Left (07/19/2020 12:30 PM CDT) Ejection Fraction [facility] ECHO HEARTLAB [facility] Specimen Impressions Performed At Left Impression [facility] ECHO HEARTLAB 1. There is no pseudoaneurysm visualized. [facility] 2. There is no hematoma visualized. 3. There is no venous obstruction or ar teriovenous fistula visualized. 4. The common femoral artery flow is tr iphasic with a velocity of 121 cm/sec. (within normal range). Conclusions Summary Duplex imaging of the left groin area w as performed. The vessels were adequately visualized. There was no zaki dence of a pseudoaneurysm, venous obstruction or arteriovenous fistula in the left groin area. Signature Velocities are measured in cm/s ; Diame ters are measured in cm Narrative Performed At PV LAB - Pseudoaneurysm Survey [facility] ECHO HEARTLAB Demographics [facility] Patient Name STEVE BENEDICT CDate of Study07/19/2020 [id number] 74 Visit Number [id number] Male Accession Number [id number] Date of Birth1945 [facility] gama Room [id number] Physician SonographBrittany garciasInterpreting Trina Hampton MD RVT Physician Procedure Type of Study: Pseudoaneurysm: PSEUDOANEURYSM, GROIN D OPPLER LEFT. Indications for Study:Check for pseudoa neurysm. Patient Status:STAT. Study Location:Portable. Technical Quality:Technically Difficult . Risk Factors History of Disease +---------+----+ + !Diagnosis!Date!Comments ! +---------+----+ + !Other!!COPD, CHF, CAD S/p PCIX4, CKD, Morbid Obesity, Lines Right ! ! !!Neck ! +---------+----+ + Procedure Note Interface, External Ris In - 07/19/2020 5:31 PM CDT PV LAB - Pseudoaneurysm Survey Demographics Patient Name STEVE BENEDICT Date of Study 07/19/2020 Age 74 Visit Number [id number] Gender Male Accession Number [id number] Date of 1945 Referring Santosh Bruno Room Number 6213 Physician Biofuels Engineering Manager Rosetta Hooper Interpreting Trina Hampton MD RVT Physician Procedure Type of Study: Pseudoaneurysm: PSEUDOANEURYSM, GROIN DOPPLER LEFT. Indications for Study:Check for pseudoaneurysm. Patient Status:STAT. Study Location:Portable. Technical Quality:Technically Difficult. Risk Factors History of Disease +---------+----+ + !Diagnosis!Date!Comments ! +---------+----+ + !Other ! !COPD, CHF, CAD S/p PCIX4, CKD, Morbid Obesity, Lines Right ! ! ! !Neck ! +---------+----+ + Impressions Left Impression 1. There is no pseudoaneurysm visualized . 2. There is no hematoma visualized. 3. There is no venous obstruction or art eriovenous fistula visualized. 4. The common femoral artery flow is tri phasic with a velocity of 121 cm/sec. (within normal range). Conclusions Summary Duplex imaging of the left groin area was performed. The vessels were adequately visualized. There was no evidence of a pseudoaneurysm, venous obstruction or arteriovenous fistula in the left groin area. Signature Velocities are measured in cm/s ; Diameters are measured in cm Performing Organization Address City/State/[facility] one Number [facility] ECHO HEARTLAB MKCKESSON CPACS * TRANSFUSION SERVICE REPORT - SCAN (07/18/2020 6:32 PM CDT) Narrative Performed At This result has an attachment that is n ot available. * POC ACTIVATED CLOTTING TIME (07/18/2020 3:59 PM CDT) Only the most recent of 5 results within the time period is included. Activated Clotting Time 191Comment: : 74-137 seconds, sec [facility] Baseline: TESTED AT [address], [address]: Differential Tester/Condominium Association Manager ID = [id number] for SILVERIO KELLOGG Specimen Blood Performing Organization Address [facility] one Number [address] [address] [facility] * Blood gas, arterial (07/18/2020 12:07 PM CDT) Only the most recent of 5 results within the time period is included. pH, Arterial 7.34 (L) 7.35 - 7.45 [facility] pCO2, Arterial 70 (HH) 35 - 45 mmHg [facility] pO2, Arterial 186 (H) 80 - 90 mmHg [facility] O2 Sat, Arterial 99.1 (H) 96.0 - 97.0 % [facility] HCO3, Arterial 37 (H) 21 - 29 mmol/L [facility] Base Excess, Arterial 8.9 (H) -2.0 - 3.0 mmol/L [facility] Patient Temperature 37.[address] [facility] FIO2 36.0 % [facility] Specimen Blood, Arterial Performing Organization Address City/[facility] one Number [address] [address] [facility] * ABORH, manual (07/17/2020 12:55 PM CDT) ABO Grouping O [facility] Rh Factor POS [facility] Specimen Blood Performing Organization Address City/[facility] Ph one Number [place] [address] [phone] [place] [address] * Type and screen, automated (07/17/2020 6:56 AM CDT) ABO/RH AUTOMATED (BEAKER) O POSITIVE [facility] Ab Scrn NEGATIVE [facility] Specimen Blood Performing Organization Address [facility] Ph one Number [place] [address] [phone] [place] [address] * Platelet Aggregation: Function Screen (07/15/2020 4:22 AM CDT) Only the most recent of 2 results within the time period is included. Pathologist: Jermaine Swan M.D. (electonic [facility] signature) [facility] Platelets 134 (L) 150 - 450 K/CU MM [facility] ADP 10 (L) 62 - 100 % [facility] Platelet Rich Plasma 225 200 - 300 k/cu mm [facility] Plt. Function Screen Decreased aggregation with ADP [facility] Interpretation which indicates platelet [facility] dysfunction that may be due to medication effect, uremia, or other platelet function disorders. Clinical correlation is required. Specimen Blood Narrative Performed At Platelet Function Screen results may be falsely low w ith platelet counts [facility] <75,000/cu mm. [facility] Differential Tester ID - [id number] Differential Tester ID - [id number] Differential Tester ID - [id number] Performing Organization Address [facility] one Number [place] [address] [phone] [place] [address] * Lung volumes (07/14/2020 12:39 PM CDT) Narrative Performed At Robert Hammer, RICKY, EARLY YEARS TEACHER 07/14 12:46 PM SLE PFT CHARTING REPORT Infection Control/Hand Hygiene procedur es followed throughout the encounter with patient: Yes Patient Identification Method: Patient name verified on armband, and Medical record on armband, Is the order complete?: Yes Account ID#: [id number] Patient Name: Steve Benedict Birthdate: 1945 Age: 74 y.o.Sex: male Admission Date: 06/21/2020 Patient Status: Inpatient Reasons/Symptom for having the Test?: p ost transplant protocol Type of study/treatment ordered by phys shirley: Lung volume and Single Breath DLCO Lab Results Component Value Date HGB 11.1 (L) 07/14/2020 Ranges: Adult Male 13 - 16.8 g/dl Adult Female 12 - 15 g/dl 6 Minute Walk (read only) 07/14/202006/2707/14/2020 Pulse 86 85 87 SpO2 92 90 - Study Date: 07/14/2020 Study Time: 1239 ASSESSMENT History & Physical Mode of Arrival: Ambulatory Pulse: 87 Resp: 18SPO2: 95 % Ra Pain Assessment Pain:None TESTING/THERAPEUTICS Medications ordered or required for pro cedure: N/A PT EDUCATION/INSTRUCTIONS Barriers to learning: No known barriers to learning. Learning need identified: Yes, Patient/ Family/Guradian was informed of the ordered study by the ph ysician Barriers to performing study or treatme nt: Patient has no known disability to perform the study or walt tment. DISCHARGE The study was completed in accordance w ith the physician's order and patient released from the lab witho ut adverse outcome. * DLCO (single breath diffusion) (07/14/2020 12:39 PM CDT) Narrative Performed At Robert Hammer RRT, EARLY YEARS TEACHER 07/14 12:46 PM [facility] PFT CHARTING REPORT Infection Control/Hand Hygiene procedur es followed throughout the encounter with patient: Yes Patient Identification Method: Patient name verified on armband, and Medical record on armband, Is the order complete?: Yes Account ID#: [id number] Patient Name: Steve Benedict Birthdate: 1945 Age: 74 y.o.Sex: male Admission Date: 06/21/2020 Patient Status: Inpatient Reasons/Symptom for having the Test?: p ost transplant protocol Type of study/treatment ordered by phys shirley: Lung volume and Single Breath DLCO Lab Results Component Value Date HGB 11.1 (L) 07/14/2020 Ranges: Adult Male 13 - 16.8 g/dl Adult Female 12 - 15 g/dl 6 Minute Walk (read only) 07/14/202006/2707/14/2020 Pulse 86 85 87 SpO2 92 90 - Study Date: 07/14/2020 Study Time: 1239 ASSESSMENT History & Physical Mode of Arrival: Ambulatory Pulse: 87 Resp: 18SPO2: 95 % Ra Pain Assessment Pain:None TESTING/THERAPEUTICS Medications ordered or required for pro cedure: N/A PT EDUCATION/INSTRUCTIONS Barriers to learning: No known barriers to learning. Learning need identified: Yes, Patient/ Family/Guradian was informed of the ordered study by the ysician Barriers to performing study or treatme nt: Patient has no known disability to perform the study or watl tment. DISCHARGE The study was completed in accordance w ith the physician's order and patient released from the lab witho ut adverse outcome. * Pulmonary Funct Lab bedside spirometry (07/14/2020 12:39 PM CDT) Narrative Performed At Robert Hammer RRT, EARLY YEARS TEACHER 07/14 12:46 PM [facility] PFT CHARTING REPORT Infection Control/Hand Hygiene procedur es followed throughout the encounter with patient: Yes Patient Identification Method: Patient name verified on armband, and Medical record on armband, Is the order complete?: Yes Account ID#: [id number] Patient Name: Steve Benedict Birthdate: 1945 Age: 74 y.o.Sex: male Admission Date: 06/21/2020 Patient Status: Inpatient Reasons/Symptom for having the Test?: p ost transplant protocol Type of study/treatment ordered by phys ician: Lung volume and Single Breath DLCO Lab Results Component Value Date HGB 11.1 (L) 07/14/2020 Ranges: Adult Male 13 - 16.8 g/dl Adult Female 12 - 15 g/dl 6 Minute Walk (read only) 07/14/202006/2707/14/2020 Pulse 86 85 87 SpO2 92 90 - Study Date: 07/14/2020 Study Time: 1239 ASSESSMENT History & Physical Mode of Arrival: Ambulatory Pulse: 87 Resp: 18SPO2: 95 % Ra Pain Assessment Pain:None TESTING/THERAPEUTICS Medications ordered or required for pro cedure: N/A PT EDUCATION/INSTRUCTIONS Barriers to learning: No known barriers to learning. Learning need identified: Yes, Patient/ Family/Guradian was informed of the ordered study by the ph ysician Barriers to performing study or treatme nt: Patient has no known disability to perform the study or walt tment. DISCHARGE The study was completed in accordance w ith the physician's order and patient released from the lab witho ut adverse outcome. * Oxygen saturation, measured (07/14/2020 5:17 AM CDT) Only the most recent of 5 results within the time period is included. O2 Saturation (Measured) 82.1 % [facility] Specimen Blood Performing Organization Address City/State/Zipcode Ph one Number [facility] [address] [address] MED[facility] CENTER * PAUL's with PT and DP doppler unilateral (07/13/2020 5:24 PM CDT) Ejection Fraction [facility] ECHO HEARTLAB MKExanet CPACS Specimen Impressions Performed At Right Impression [facility] ECHO HEARTLAB 1. The posterior tibial and dorsalis pedis arteries a re patent with normal MKCKAquaBlokON [employer] triphasic Doppler waveforms. 2. The PT pressure is 140 mmHg with an PAUL of 1.25 and the DP pressure is 94 mmHg with an PAUL of 0.84, within normal range. 3. There is adequate flow to the 1st,2n d and 3rd digits by PPG waveforms. 4. There is decreased flow to the 4th a nd 5th digits by PPG waveforms. 5. The great toe pressure is 120 mmHg w ith a normal TBI of 1.07. Left Impression 1. The posterior tibial and dorsalis pe dis arteries are patent with triphasic/biphasic doppler waveforms Do ppler waveforms. 2. The PAUL's were not obtained due to p ain and bandages. 3. There is adequate flow to the digits by PPG waveforms. 4. The great toe pressure is 128 mmHg w ith a normal TBI of 1.14. Conclusions Summary Arterial pressures and Doppler waveform s were performed on the right lower extremity. The posterior tibial and shen salis pedis arteries were patent with normal triphasic Doppler waveforms . The PT pressure was 140 mmHg with an PAUL of 1.25 and the DP pressure is 9 4 mmHg with an PAUL of 0.84, within normal range. There was adequate flow t o the 1st,2nd and 3rd digits by PPG waveforms. There was decreased flow to the 4th and 5th digits by PPG waveforms. The great toe pressure was 1 20 mmHg with a normal TBI of 1.07. Signature Velocities are measured in cm/s ; Diame ters are measured in cm Narrative Performed At PV LAB - Lower Extremity Arterial Procedure SLEH ECH O HEARTLAB Demographics [facility] Patient NameSTEVE BENEDICT CDate of Study 07/13/2020 74 Visit [id number] Date of 1945 Referring Jimy Fitzgerald [facility] Number [id number] Physician Biofuels Engineering Manager Adam Casas [facility] ABELINO Nunes Physician Procedure Type of Study: Extremities Arteries: Lower Extremity A rterial Procedure, ARTERIAL (PAUL'S W/DOPPLER) ONLY, PV,ARTERIAL ABIL UNILA TERAL. Indications for Study:Ulcer. Patient Status:Routine. Study Location:Portable. Technical Quality:Adequate visualizatio n. Risk Factors History of Disease +---------+----+ + !Diagnosis!Date!Comments ! +---------+----+ + !Other!!COPD, CHF, CAD S/p PCIX4, CKD, Morbid Obesity, Lines Right ! ! !!Neck ! +---------+----+ + Procedure Note Interface, External Ris In - 07/13/2020 10:10 PM CDT PV LAB - Lower Extremity Arterial Procedure Demographics Patient Name STEVE BENEDICT Date of Study 07/13/2020 Age 74 Visit Number [id number] Gender Male Accession Number [id number] Date of 1945 Referring Jimy Fitzgerald MD Room Number 6947 Physician Biofuels Engineering Manager Adam Casas Interpreting Diana Carcamo [facility] Physician Procedure Type of Study: Extremities Arteries: Lower Extremity Arterial Procedure, ARTERIAL (PAUL'S W/DOPPLER) ONLY, PV,ARTERIAL ABIL UNILATERAL. Indications for Study:Ulcer. Patient Status:Routine. Study Location:Portable. Technical Quality:Adequate visualization. Risk Factors History of Disease +---------+----+ + !Diagnosis!Date!Comments ! +---------+----+ + !Other ! !COPD, CHF, CAD S/p PCIX4, CKD, Morbid Obesity, Lines Right ! ! ! !Neck ! +---------+----+ + Impressions Right Impression 1. The posterior tibial and dorsalis ped is arteries are patent with normal triphasic Doppler waveforms. 2. The PT pressure is 140 mmHg with an A BI of 1.25 and the DP pressure is 94 mmHg with an PAUL of 0.84, within normal range. 3. There is adequate flow to the 1st,2nd and 3rd digits by PPG waveforms. 4. There is decreased flow to the 4th an d 5th digits by PPG waveforms. 5. The great toe pressure is 120 mmHg wi th a normal TBI of 1.07. Left Impression 1. The posterior tibial and dorsalis ped is arteries are patent with triphasic/biphasic doppler waveforms Doppler waveforms. 2. The PAUL's were not obtained due to pa in and bandages. 3. There is adequate flow to the digits by PPG waveforms. 4. The great toe pressure is 128 mmHg wi th a normal TBI of 1.14. Conclusions Summary Arterial pressures and Doppler waveforms were performed on the right lower extremity. The posterior tibial and dorsalis pedis arteries were patent with normal triphasic Doppler waveforms. The PT pressure was 140 mmHg with an PAUL of 1.25 and the DP pressure is 94 mmHg with an PAUL of 0.84, within normal range. There was adequate flow to the 1st,2nd and 3rd digits by PPG waveforms. There was decreased flow to the 4th and 5th digits by PPG waveforms. The great toe pressure was 120 mmHg with a normal TBI of 1.07. Signature Velocities are measured in cm/s ; Diameters are measured in cm Performing Organization Address City/State/[facility] Cent[facility] Ph one Number [facility] ECHO HEARTLAB [employer] life renalESSON CPACS * Vein Mapping Legs Bilateral (07/13/2020 1:00 PM CDT) Ejection Fraction [facility] ECHO HEARTLAB MKCKESSON CPACS Specimen Impressions Performed At Right Impression [facility] ECHO HEARTLAB 1. There is no deep venous venous obstruction in the common femoral, MKCKESSON CPACS profunda femoral, femoral, popliteal, p osterior tibial or peroneal veins. 2. There is no superficial venous obstr uction in the great saphenous vein. Left Impression 1. There is no deep venous obstruction in the common femoral, profunda femoral, femoral, popliteal or posterio r tibial veins. 2. The peroneal veins were not visualiz ed. 3. There is no superficial venous obstr uction in the great saphenous vein. Conclusions Summary Venous duplex imaging and compression o f the bilateral lower extremities was performed. The veins were adequatel y visualized except as stated above. The bilateral venous systems wer e patent and compressible with no evidence of thrombus where visualized. Superficial venous measurements are doc umented below. Signature Velocities are measured in cm/s ; Diame ters are measured in cm LE Vein Mapping Superficial - Great Saphenous Vein Right Left + + + +----- + + +----- + !Location ! !Diameter!Depth ! !Diameter!Depth ! + + + +----- + + +----- + !GSV High Thigh ! !0.51! ! !0.53! ! + + + +----- + + +----- + !GSV Mid Thigh ! !0.44! ! !0.6 ! ! + + + +----- + + +----- + !GSV Low Thigh ! !0.52! ! !0.27! ! + + + +----- + + +----- + !GSV High Calf ! !0.35! ! !0.32! ! + + + +----- + + +----- + !GSV Mid Calf ! !0.33! ! + + + +----- + !GSV Low Calf ! !0.35! ! + + + +----- + Narrative Performed At PV LAB - Lower Extremities Vein Mapping [facility] DANIEL KAUR ART[facility] Demographics [facility] Patient NameSTEVE BENEDICT CDate of Study 07/13/2020 74 Visit [id number] Date of 1945 Referring Jimy Fitzgerald [facility] Number [id number] Physician Biofuels Engineering Manager Adam Casas [facility] [place], T Physician MD Procedure Type of Study: Veins: Lower Extremity Vein Mapping, VE IN MAPPING, LOWER EXTREMITY, BILATERAL. Indications for Study:Pre-op evaluation . Patient Status:TODAY. Study Location:Portable. Technical Quality:Adequate visualizatio n. Risk Factors History of Disease +---------+----+ + !Diagnosis!Date!Comments ! +---------+----+ + !Other!!COPD, CHF, CAD S/p PCIX4, CKD, Morbid Obesity, Lines Right ! ! !!Neck ! +---------+----+ + Procedure Note Interface, External Ris In - 07/13/2020 10:09 PM CDT PV LAB - Lower Extremities Vein Mapping Demographics Patient Name STEVE BENEDICT Date of Study 07/13/2020 Age 74 Visit Number [id number] Gender Male Accession Number [id number] Date of 1945 Referring Jimy Fitzgerald MD Room Number 6236 Physician Biofuels Engineering Manager Adam Casas Interpreting Diana Carcamo T Physician Procedure Type of Study: Veins: Lower Extremity Vein Mapping, VEIN MAPPING, LOWER EXTREMITY, BILATERAL. Indications for Study:Pre-op evaluation. Patient Status:TODAY. Study Location:Portable. Technical Quality:Adequate visualization. Risk Factors History of Disease +---------+----+ + !Diagnosis!Date!Comments ! +---------+----+ + !Other ! !COPD, CHF, CAD S/p PCIX4, CKD, Morbid Obesity, Lines Right ! ! ! !Neck ! +---------+----+ + Impressions Right Impression 1. There is no deep venous venous obstru ction in the common femoral, profunda femoral, femoral, popliteal, posterior tibial or peroneal veins. 2. There is no superficial venous obstru ction in the great saphenous vein. Left Impression 1. There is no deep venous obstruction i n the common femoral, profunda femoral, femoral, popliteal or posterior tibial veins. 2. The peroneal veins were not visualize d. 3. There is no superficial venous obstru ction in the great saphenous vein. Conclusions Summary Venous duplex imaging and compression of the bilateral lower extremities was performed. The veins were adequately visualized except as stated above. The bilateral venous systems were patent and compressible with no evidence of thrombus where visualized. Superficial venous measurements are documented below. Signature Velocities are measured in cm/s ; Diameters are measured in cm LE Vein Mapping Superficial - Great Saphenous Vein Right Left + + + + + + + + !Location ! !Diameter !Depth ! !Diameter !Depth ! + + + + + + + + !GSV High Thigh ! !0.51 ! ! !0.53 ! ! + + + + + + + + !GSV Mid Thigh ! !0.44 ! ! !0.6 ! ! + + + + + + + + !GSV Low Thigh ! !0.52 ! ! !0.27 ! ! + + + + + + + + !GSV High Calf ! !0.35 ! ! !0.32 ! ! + + + + + + + + !GSV Mid Calf ! !0.33 ! ! + + + + + !GSV Low Calf ! !0.35 ! ! + + + + + Performing Organization Address City/State/Zipcode Ph one Number [facility] [employer] [email or web address] [employer] * Arterial doppler legs bilateral (07/13/2020 1:00 PM CDT) Ejection Fraction [facility] [employer] Specimen Impressions Performed At Right Impression [facility] [employer] HEARTHumedics 1. The common femoral, profunda femoral, superficial femoral, popliteal, [employer] posterior tibial, peroneal and anterior tibial arteries are patent with calcified plaque and triphasic doppler waveforms throughout. Left Impression 1. The common femoral, profunda femoral , superficial femoral and popliteal arteries are patent with calcified plaq ue and triphasic doppler waveforms throughout. 2. The proximal posterior tibial artery was patent with a low velocity of 12/4 cm/sec and biphasic/monophasic dop pler waveforms throughout. 3. The mid-distal posterior tibial silvia ry was not visualized. 4. The peroneal artery was not visualiz ed. 5. The distal anterior tibial artery is patent with triphasic doppler waveforms. 6. The proximal-mid anterior tibial art marc was not visualized. Conclusions Summary Arterial Doppler waveforms were perform ed bilaterally. The arteries were technically difficult to visualize due to a bandage, pain, swelling and body habitus. On the right, the common femoral, profunda femoral, superficial femoral, popliteal, posteri or tibial, peroneal and anterior tibial arteries were patent with calcif ied plaque and triphasic doppler waveforms throughout. On the left, the common femoral, profunda femoral, superficial femoral and popliteal arter ies were patent with calcified plaque and triphasic doppler waveforms throughout. The proximal posterior tibial artery was patent with a low rigo ocity of 12/4 cm/sec and biphasic/monophasic doppler waveforms t hroughout. The mid-distal posterior tibial artery was not visualized. The p eroneal artery was not visualized. The distal anterior tibial artery was p atent with triphasic doppler waveforms. The proximal-mid anterior ti bial artery was not visualized. Signature Velocities are measured in cm/s ; Diame ters are measured in cm LE Duplex Measurements Right Left + + + + + + + + + + !Location ! !PSV !EDV !Wavef orm! !PSV !EDV !Waveform ! + + + + + + + + + + !Mid Common Femoral ! !73.9!17.3!Triphasic ! !136 !16.7!Triph asic ! + + + + + + + + + + !Prox PFA ! !117 !!T riphasic ! !55.4!!Triphasic ! + + + + + + + + + + !Prox SFA ! !81.5!14.7!Triphasic ! !83.8!17!Triphasic ! + + + + + + + + + + !Mid SFA ! !83.5!11.8!Triphasic ! !83.3!13.5!Triphasic ! + + + + + + + + + + !Dist SFA ! !87.4!14.7!Triphasic ! !91.9!13.4!Triphasic ! + + + + + + + + + + !Prox Popliteal ! !53.4!14.1!Triphasic ! !58.1!14.9!Triphasic ! + + + + + + + + + + !Dist Popliteal ! !53.4!!Triphasic ! !50.3!9.43!Triphasic ! + + + + + + + + + + !Prox LOGGING CREW FOREMAN ! !45.7!!Triphasic ! !12.8!4.91! ! + + + + + + + + + + !Mid LOGGING [employer]W FOREMAN ! !49.9!9.82!Triphasic ! !!!Bipha sic! + + + + + + + + + + !Dist LOGGING CREW FOREMAN ! !44!!Triphas ic ! !46.8!!Biphasic ! + + + + + + + + + + !Prox SALO ! !51!!Triphas ic ! + + + + + + !Dist SALO ! !34!!Triphas ic ! + + + + + + !Dist Peroneal ! !32.8!!Triphasic ! + + + + + + Narrative Performed At LAB - Lower Extremity Arterial Duplex [facility] ECHO EARTLAB Demographics [facility] Patient STEVE Redmond CDate of Study 07/13/2020 74 Visit [id number] Date of 1945 Referring Jimy Fitzgerald [facility] Number [id number] Physician Biofuels Engineering Manager [facility] zane, T Physician Procedure Type of Study: Extremities Arteries: Lower Extremities Arterial Duplex, ARTERIAL DOPPLER LEGS, BILATERAL. Indications for Study:Ulcer. Patient Status:TODAY. Study Location:Portable. Technical Quality:Adequate visualizatio n. Risk Factors History of Disease +---------+----+ + !Diagnosis!Date!Comments ! +---------+----+ + !Other!!COPD, CHF, CAD S/p PCIX4, CKD, Morbid Obesity, Lines Right ! ! !!Neck ! +---------+----+ + Procedure Note Interface, External Ris In - 07/13/2020 10:09 PM CDT PV LAB - Lower Extremity Arterial Duplex Demographics Patient Name STEVE BENEDICT Date of Study 07/13/2020 Age 74 Visit Number [id number] Gender Male Accession Number [id number] Date of 1945 Referring Jimy Fitzgerald MD Room Number 6963 Physician Biofuels Engineering Manager Adam Casas Interpreting Diana Carcamo T Physician Procedure Type of Study: Extremities Arteries: Lower Extremities Arterial Duplex, ARTERIAL DOPPLER LEGS, BILATERAL. Indications for Study:Ulcer. Patient Status:TODAY. Study Location:Portable. Technical Quality:Adequate visualization. Risk Factors History of Disease +---------+----+ + !Diagnosis!Date!Comments ! +---------+----+ + !Other ! !COPD, CHF, CAD S/p PCIX4, CKD, Morbid Obesity, Lines Right ! ! ! !Neck ! +---------+----+ + Impressions Right Impression 1. The common femoral, profunda femoral, superficial femoral, popliteal, posterior tibial, peroneal and anterior tibial arteries are patent with calcified plaque and triphasic doppler waveforms throughout. Left Impression 1. The common femoral, profunda femoral, superficial femoral and popliteal arteries are patent with calcified plaque and triphasic doppler waveforms throughout. 2. The proximal posterior tibial artery was patent with a low velocity of 12/4 cm/sec and biphasic/monophasic dopp ler waveforms throughout. 3. The mid-distal posterior tibial arter y was not visualized. 4. The peroneal artery was not visualize d. 5. The distal anterior tibial artery is patent with triphasic doppler waveforms. 6. The proximal-mid anterior tibial silvia ry was not visualized. Conclusions Summary Arterial Doppler waveforms were performed bilaterally. The arteries were technically difficult to visualize due to a bandage, pain, swelling and body habitus. On the right, the common femoral, profunda femoral, superficial femoral, popliteal, posterior tibial, peroneal and anterior tibial arteries were patent with calcified plaque and triphasic doppler waveforms throughout. On the left, the common femoral, profunda femoral, superficial femoral and popliteal arteries were patent with calcified plaque and triphasic doppler waveforms throughout. The proximal posterior tibial artery was patent with a low velocity of 12/4 cm/sec and biphasic/monophasic doppler waveforms throughout. The mid-distal posterior tibial artery was not visualized. The peroneal artery was not visualized. The distal anterior tibial artery was patent with triphasic doppler waveforms. The proximal-mid anterior tibial artery was not visualized. Signature Velocities are measured in cm/s ; Diameters are measured in cm LE Duplex Measurements Right Left + + + + + + + + + + !Location ! !PSV !EDV !Waveform ! !PSV !EDV !Waveform ! + + + + + + + + + + !Mid Common Femoral ! !73.9 !17.3 !Triphasic ! !136 !16.7 !Triphasic ! + + + + + + + + + + !Prox PFA ! !117 ! !Triphasic ! !55.4 ! !Triphasic ! + + + + + + + + + + !Prox SFA ! !81.5 !14.7 !Triphasic ! !83.8 !17 !Triphasic ! + + + + + + + + + + !Mid SFA ! !83.5 !11.8 !Triphasic ! !83.3 !13.5 !Triphasic ! + + + + + + + + + + !Dist SFA ! !87.4 !14.7 !Triphasic ! !91.9 !13.4 !Triphasic ! + + + + + + + + + + !Prox Popliteal ! !53.4 !14.1 !Triphasic ! !58.1 !14.9 !Triphasic ! + + + + + + + + + + !Dist Popliteal ! !53.4 ! !Triphasic ! !50.3 !9.43 !Triphasic ! + + + + + + + + + + !Prox LOGGING CREW FOREMAN ! !45.7 ! !Triphasic ! !12.8 !4.91 ! ! + + + + + + + + + + !Mid LOGGING CREW FOREMAN ! !49.9 !9.82 !Triphasic ! ! ! !Biphasic ! + + + + + + + + + + !Dist LOGGING CREW FOREMAN ! !44 ! !Triphasic ! !46.8 ! !Biphasic ! + + + + + + + + + + !Prox SALO ! !51 ! !Triphasic ! + + + + + + !Dist SALO ! !34 ! !Triphasic ! + + + + + + !Dist Peroneal ! !32.8 ! !Triphasic ! + + + + + + Performing Organization Address City/State/[facility] Ph one Number [facility] [employer] HEARTTheShelf * Carotid doppler bilateral (07/13/2020 1:00 PM CDT) Ejection Fraction [facility] [employer] HEARTTheShelf Specimen Impressions Performed At Right Impression [facility] HEARTHumedics Not obtained due to lines [employer] Left Impression 1. There is <50% diameter reduction (ap proximately 32% by 2-D measurement) in the internal carotid artery with a p eak velocity of 58/15 cm/sec and heterogeneous plaque. 2. There is non-occluding plaque in the external carotid artery. 3. There is non-occluding plaque in the common carotid artery. 4. The vertebral artery flow is antegra de and normal. Conclusions Summary Carotid duplex scanning and color flow imaging was performed on the left side. The arteries were adequately visu alized. The left internal carotid artery had <50% hemodynamically insigni ficant stenosis (approximately 32% by 2-D measurement) with heterogeneous plaque. Signature Velocities are measured in cm/s ; Diame ters are measured in cm Carotid Left Measurements +---------+----+----+-----+ -+ + + !Location !PSV !EDV !Angle!%Stenosis 2D !%Stenosis Doppler !Tortuosity ! +---------+----+----+-----+ -+ + + !Prox CCA !58!11.7!60 ! ! ! ! +---------+----+----+-----+ -+ + + !Dist CCA !45.7!13.5!60 ! ! ! ! +---------+----+----+-----+ -+ + + !Prox ICA !53.8!15.3!60 !32%!<50%! ! +---------+----+----+-----+ -+ + + !Dist ICA !55!23.2!60 ! ! ! ! +---------+----+----+-----+ -+ + + !Prox ECA !127 !23.6!60 ! ! ! ! +---------+----+----+-----+ -+ + + !Vertebral!28.7!7.86!60 ! ! ! ! +---------+----+----+-----+ -+ + + - Additional Measurements:ICAPSV/CC APSV 1.2.ICAEDV/CCAEDV 1.98. Narrative Performed At LAB - Carotid Duplex Study [facility] ECHO HEARTLAB Demographics [facility] Patient NameSTEVE BENEDICT CDate of Study 07/13/2020 74 Visit [id number] Date of 1945 Referring Jimy Fitzgerald [facility] Number [id number] Physician Biofuels Engineering Manager Adam [facility] degroot Elyssa Physician Procedure Type of Study: Cerebral: Carotid, CAROTID DOPPLER, BRYAN ATERAL. Indications for Study:Pre-op evaluation . Patient Status:TODAY. Study Location:Portable. Technical Quality:Adequate visualizatio n. Risk Factors History of Disease +---------+----+ + !Diagnosis!Date!Comments ! +---------+----+ + !Other!!COPD, CHF, CAD S/p PCIX4, CKD, Morbid Obesity, Lines Right ! ! !!Neck ! +---------+----+ + Procedure Note Interface, External Ris In - 07/13/2020 10:09 PM CDT PV LAB - Carotid Duplex Study Demographics Patient Name STEVE BENEDICT Date of Study 07/13/2020 Age 74 Visit Number [id number] Gender Male Accession Number [id number] Date of 1945 Referring Jimy Fitzgerald MD Room Number 9790 Physician Biofuels Engineering Manager Adam Casas Interpreting Diana Carcamo T Physician Procedure Type of Study: Cerebral: Carotid, CAROTID DOPPLER, BILATERAL. Indications for Study:Pre-op evaluation. Patient Status:TODAY. Study Location:Portable. Technical Quality:Adequate visualization. Risk Factors History of Disease +---------+----+ + !Diagnosis!Date!Comments ! +---------+----+ + !Other ! !COPD, CHF, CAD S/p PCIX4, CKD, Morbid Obesity, Lines Right ! ! ! !Neck ! +---------+----+ + Impressions Right Impression Not obtained due to lines Left Impression 1. There is <50% diameter reduction (anneliese roximately 32% by 2-D measurement) in the internal carotid artery with a peak velocity of 58/15 cm/sec and heterogeneous plaque. 2. There is non-occluding plaque in the external carotid artery. 3. There is non-occluding plaque in the common carotid artery. 4. The vertebral artery flow is antegrad e and normal. Conclusions Summary Carotid duplex scanning and color flow imaging was performed on the left side. The arteries were adequately visualized. The left internal carotid artery had <50% hemodynamically insignificant stenosis (approximately 32% by 2-D measurement) with heterogeneous plaque. Signature Velocities are measured in cm/s ; Diameters are measured in cm Carotid Left Measurements +---------+----+----+-----+ + + + !Location !PSV !EDV !Angle!%Stenosis 2D !%Stenosis Doppler !Tortuosity ! +---------+----+----+-----+ + + + !Prox CCA !58 !11.7!60 ! ! ! ! +---------+----+----+-----+ + + + !Dist CCA !45.7!13.5!60 ! ! ! ! +---------+----+----+-----+ + + + !Prox ICA !53.8!15.3!60 !32% !<50% ! ! +---------+----+----+-----+ + + + !Dist ICA !55 !23.2!60 ! ! ! ! +---------+----+----+-----+ + + + !Prox ECA !127 !23.6!60 ! ! ! ! +---------+----+----+-----+ + + + !Vertebral!28.7!7.86!60 ! ! ! ! +---------+----+----+-----+ + + + - Additional Measurements:ICAPSV/CCAPSV 1.2.ICAEDV/CCAEDV 1.98. Performing Organization Address City/State/[facility] Ph one Number [facility] ECHO HEARTLAB MKCKESSON CPACS * Blood gas, venous (07/10/2020 4:58 PM CDT) Only the most recent of 3 results within the time period is included. pH, Sea 7.29 (L) 7.32 - 7.42 [facility] pCO2, Sea 87 (HH) 41 - 51 mmHg [facility] pO2, Sea 43 (H) 25 - 40 mmHg [facility] O2 Sat, Sea 69.8 40.0 - 70.0 % [facility] HCO3, Sea 41 (HH) 21 - 29 mmol/L [facility] Base Excess, Sea 11.0 (H) -2.0 - 3.0 mmol/L [facility] Patient Temperature 37.[address] [facility] FIO2 32.0 % [facility] Specimen Blood Narrative Performed At Call results [phone], okay to check during next la b draw [facility] Performing Organization Address City/[facility] Ph one Number [facility] [address] [place], [place] [address] [facility] * Potassium-Stat Lab (07/09/2020 6:00 AM CDT) Potassium 3.3 (L) 3.6 - 5.5 meq/L [facility] Specimen Blood, Arterial Performing Organization Address [facility] Ph one Number [facility] [address] [place] [address], [place] [address] [facility] * ECG 12 lead (07/08/2020 12:11 AM CDT) Only the most recent of 3 results within the time period is included. Specimen Narrative Performed At Ventricular Rate 93 BPM GE MUSE Atrial Rate 94 BPM QRS Duration 98 ms Q-T Interval 336 ms QTC Calculation(Bazett) 417 ms R Odem -9 degrees T Odem 70 degrees Atrial fibrillation with premature vent ricular or aberrantly conducted complexes Pulmonary disease pattern Abnormal ECG When compared with ECG of 22-JUN-2020 0 0:03, Artifacts no longer seen Confirmed by MD HITCHCOCK YOCHAI ([id number] ) on 07/10/2020 2:13:23 PM Procedure Note Interface, External Ris In - 07/10/2020 2:13 PM CDT Ventricular Rate 93 BPM Atrial Rate 94 BPM QRS Duration 98 ms Q-T Interval 336 ms QTC Calculation(Bazett) 417 ms R Odem -9 degrees T Odem 70 degrees Atrial fibrillation with premature ventricular or aberrantly conducted complexes Pulmonary disease pattern Abnormal ECG When compared with ECG of 22-JUN-2020 00:03, Artifacts no longer seen Confirmed by MD HITCHCOCK YOCHAI ([id number]) on 07/10/2020 2:13:23 PM Performing Organization Address [facility] Ph one Number GE MUSE * RHYTHM STRIP - SCAN (07/07/2020 12:01 PM CDT) Narrative Performed At This result has an attachment that is n ot available. * NM lung scan (V/Q) (06/29/2020 4:04 PM CDT) Specimen Narrative Performed At FINAL REPORT [facility] PROCEDURE: V/Q LUNG SCAN CPT CODE: 16588 INDICATION: Acute on chroni c oxygen hypercapnic respiratory failure. PE suspected. PROTOCOL:2.1 mCi of Tc-99m MAA was then injected intravenously, and static perfusion images were obtained i n multiple projections. 19.3 mCi ofXe-133 gas was administered b y inhalation. Rebreathing/washout images were obtaine d in the anterior and the posterior projections.. FINDINGS: Ventilation: Initial tr acer distribution is segmentally decreased in the mid right lung. Washou t proceeds normally. Perfusion:Tracer di stribution is decreased in the mid right lung extending posterosuperiorly and he terogeneous throughout the remainder of the lungs. There is decrea sed intensity in the left major fissure. IMPRESSION: 1. Low probability of acute pulmonary e mbolization. Matched ventilation/perfusion defects. 2. Marked parenchymal lung disease. Signed: Renaldo Graves MD Report Verified Date/Time: 0 16:27:43 Reading Location: [address] Reading Room Procedure Note Interface, External Ris In - 06/29/2020 4:29 PM CDT FINAL REPORT PROCEDURE: V/Q LUNG SCAN CPT CODE: 20591 INDICATION: Acute on chronic oxygen hypercapnic respiratory failure. PE suspected. PROTOCOL: 2.1 mCi of Tc-99m MAA was then injected intravenously, and static perfusion images were obtained in multiple projections. 19.3 mCi of Xe-133 gas was administered by inhalation. Rebreathing/washout images were obtained in the anterior and the posterior projections.. FINDINGS: Ventilation: Initial tracer distribution is segmentally decreased in the mid right lung. Washout proceeds normally. Perfusion: Tracer distribution is decreased in the mid right lung extending posterosuperiorly and heterogeneous throughout the remainder of the lungs. There is decreased intensity in the left major fissure. IMPRESSION: 1. Low probability of acute pulmonary em bolization. Matched ventilation/perfusion defects. 2. Marked parenchymal lung disease. Signed: Renaldo Graves MD Report Verified Date/Time: 06/29/2020 16:27:43 Reading Location: [address] [address] [facility] Reading Room Performing Organization Address [facility]1983 one Number LISA VALDEZ * Ketone, blood (06/29/2020 8:07 AM CDT) Ketones, Blood 0.2 <0.4 mmol/L [facility] Specimen Blood Performing Organization Address [facility] one Number [place] [address] [facility] * Lactic acid, venous (06/29/2020 8:06 AM CDT) Only the most recent of 2 results within the time period is included. Lactate, Venous 2.42 (H) 0.50 - 2.20 mmol/L [facility] Specimen Blood Narrative Performed At Differential Tester ALLEN Swift [facility] Performing Organization Address [facility] one Number [place] [phone] [place] [address] * Insulin, fasting (06/29/2020 8:06 AM CDT) Insulin, Fasting 11.5 <=19.6 uIU/mL [facility] Comment: [facility] Risk: Optimal <=19.6, Moderate NA, High >19.6 This insulin shows strong cross-reactivity for some insulin analogs (lispro, aspart, and glargine) and much lower cross-reactivity with others (detemir, glulisine). Adult cardiovascular event risk category cut points (optimal, moderate, high) are based on [facility] population data from 09/2011. Specimen Blood Narrative Performed At Performing Lab [facility] [employer] [facility] [address] [place] [id number] Alli Bee MD, PhD, GALI Performing Organization Address [facility] one Number [facility], [address] [place] [phone] * Hepatic function panel (06/29/2020 8:06 AM CDT) Protein, Total 5.8 (L) 6.0 - 8.3 gm/dL [facility] Albumin 3.4 (L) 3.5 - 5.0 g/dL [facility] Total Bilirubin 0.6 0.2 - 1.2 mg/dL [facility] Bilirubin, Direct 0.3 0.1 - 0.5 mg/dL [facility] Alkaline Phosphatase 95 40 - 150 U/L [facility] AST 24 5 - 34 U/L [facility] ALT 52 6 - 55 U/L [facility] Specimen Blood Narrative Performed At [facility] Send if serum glucose <55 [facility] Performing Organization Address [facility] [facility] [place] [address] [address] [phone] [place] [address] * Cortisol (06/29/2020 8:05 AM CDT) Only the most recent of 2 results within the time period is included. Cortisol, Total 4.4 3.7 - 19.4 ug/dL [facility] Specimen Blood Narrative Performed At [facility] Performing Organization Address [facility]ly [facility], [facility] one [place] [address] [facility] * Insulin-like growth factor (06/29/2020 8:05 AM CDT) Igf-1(Somatomedin-C) 99 34 - 245 ng/mL [facility] Z-Score Male: -0.1 -2.0 - 2.0 SD [facility] Comment: INCORPORATED This test was developed and its analytical performance characteristics have been determined by [employer] [facility]. It has not been cleared or approved by FDA. This assay has been validated pursuant to the CLIA regulations and is used for clinical purposes. Z-Score Female: DNR [facility] Specimen Blood Narrative Performed At Performing Lab [facility] [email or web address] [place] [address] [place] [phone] Alli Bee MD, PhD, GALI Performing Organization Address [facility], [facility] one Number [employer] [facility], [address] [place] [address] * Growth hormone (06/29/2020 8:05 AM CDT) Growth Hormone 0.2 < OR = 7.1 ng/mL [facility] Comment: INCORPORATED Because of a pulsatile secretion pattern, random (unstimulated) growth hormone (GH) levels are frequently undetectable in normal children and adults and are not reliable for diagnosing GH deficiency. Regarding suppression tests, failure to suppress GH is diagnostic of acromegaly. Typical GH response in healthy subjects: Using the glucose tolerance (GH suppression) test, acromegaly would be ruled out if the patient's GH level is <1.0 ng/mL at any point in the timed sequence.[Kellen L, Damaris Key ER, Carla S, et al. Acromegaly: an Endocrine Society Clinical Practice Guideline. J Clin Endocrinol Metab 2014; 99: 7319-2759]. Using GH stimulation testing, the following result at any point in the timed sequence makes GH deficiency unlikely: Adults (> or = 20 years): Insulin Hypoglycemia > or = 5.1 ng/mL Arginine/GHRH > or = 4.1 ng/mL Glucagon > or = 3.0 ng/mL Children (<20 years): All Stimulation Tests> or = 10.0 ng/mL Specimen Blood Narrative Performed At Performing Lab [facility] [facility] [address] [address] [place] [address] Alli Bee MD, PhD, GALI Performing Organization Address [facility], [facility] one Number [facility], [address] [place] [address] * C-peptide (06/29/2020 8:04 AM CDT) C-Peptide 7.68 (H) 0.80 - 3.85 ng/mL [facility] Specimen Blood Narrative Performed At Performing Lab [facility] [place] [address] [place] [address] Alli Bee MD, PhD, GALI Performing Organization Address City/[facility] Ph one Number [facility] [place], [address] [place], [place] INCORPORATED [address] [address] * Hemoglobin A1c (06/29/2020 4:56 AM CDT) Hemoglobin A1C 5.9 4.3 - 6.1 % [facility] Specimen Blood Performing Organization Address City/[facility] Ph one Number [place] [address] [facility] * CT brain without IV contrast (06/22/2020 10:30 AM CDT) Specimen Narrative Performed At FINAL REPORT [employer] [facility] CT Head without contrast CLINICAL HISTORY: Altered mental status , fall TECHNIQUE: Contiguous axial images thro ugh the head without contrast. This exam was performed according to [facility] departmental dose optimization program which includes aut omated exposure control, adjustment of the mA and/or kV accordin g to the patient size, and/or use of an iterative reconstruction tech nique. COMPARISON: None FINDINGS: There is no evidence of skull fracture or intracranial hemorrhage. There is mild periventricular and subco rtical white matter hypodensity which is nonspecific but co mpatible with chronic microvascular ischemic change. There is generalized parenchymal volume loss without hydrocephalus, midl ine shift, or apparent mass effect. There are no extra-axial fluid collections. The paranasal sinuses are well-aerated. IMPRESSION: No evidence of skull fracture or intrac ranial hemorrhage. Signed: Gurdeep Woods MD Report Verified Date/Time: 0 10:40:40 Reading Location: [address] Neuro Re ading Room Procedure Note Interface, External Ris In - 06/22/2020 10:49 AM CDT FINAL REPORT CT Head without contrast CLINICAL HISTORY: Altered mental status, fall TECHNIQUE: Contiguous axial images through the head without contrast. This exam was performed according to the departmental dose optimization program which includes automated exposure control, adjustment of the mA and/or kV according to the patient size, and/or use of an iterative reconstruction technique. COMPARISON: None FINDINGS: There is no evidence of skull fracture or intracranial hemorrhage. There is mild periventricular and subcortical white matter hypodensity which is nonspecific but compatible with chronic microvascular ischemic change. There is generalized parenchymal volume loss without hydrocephalus, midline shift, or apparent mass effect. There are no extra-axial fluid collections. The paranasal sinuses are well-aerated. IMPRESSION: No evidence of skull fracture or intracranial hemorrhage. Signed: Gurdeep Woods MD Report Verified Date/Time: 06/22/2020 10:40:40 Reading Location: [address] Neuro Reading Room Performing Organization Address City/State/Zipcode Ph one Number [employer] RIS * CT chest without IV contrast (06/22/2020 10:30 AM CDT) Specimen Narrative Performed At FINAL REPORT [employer] CT Chest without contrast History: Shortness of breath Comparison: none Technique: serial axial imaging was per formed without intravenous contrast as per departmental protocol. Multiplanar images are reconstructed and reviewed when indicat ed. This CT examination is performed using one or more of the following dose reduction techniques: Automated exposure control, adjustment of the mA and /or kV according to patient size, and/or use of iterativ e reconstruction technique. Findings: No mediastinal lymphadenopathy. No definite hilar enlargement. Normal size heart.No pericardial ef fusion. No thoracic aortic aneurysm.Normal caliber of main pulmonary trunk. Patent central airways.Small bilate ral pleural effusions. No pneumothorax is appreciated.Signifi cant underlying centrilobular pulmonary emphysema. Superimposed patch y groundglass opacities are seen within the right upper lobe. Bilat eral lower lobe subsegmental atelectasis is noted. No significant findings in the partiall y imaged abdomen. No aggressive osseous lesion. Multiple chronic, healed bilateral rib fractures. Impression: 1. Patchy groundglass densities within the right upper lobe could represent the sequelae of recent pneumo luis enrique. Suggest clinical correlation. 2. Significant underlying pulmonary emp hysema. 3. Small bilateral pleural effusions. Signed: Omar Pathak MD Report Verified Date/Time: 0 10:51:51 Reading Location: [facility] Radiology Readin g Room Procedure Note Interface, External Ris In - 06/22/2020 10:54 AM CDT FINAL REPORT CT Chest without contrast History: Shortness of breath Comparison: none Technique: serial axial imaging was performed without intravenous contrast as per departmental protocol. Multiplanar images are reconstructed and reviewed when indicated. This CT examination is performed using one or more of the following dose reduction techniques: Automated exposure control, adjustment of the mA and /or kV according to patient size, and/or use of iterative reconstruction technique. Findings: No mediastinal lymphadenopathy. No definite hilar enlargement. Normal size heart. No pericardial effusion. No thoracic aortic aneurysm. Normal caliber of main pulmonary trunk. Patent central airways. Small bilateral pleural effusions. No pneumothorax is appreciated. Significant underlying centrilobular pulmonary emphysema. Superimposed patchy groundglass opacities are seen within the right upper lobe. Bilateral lower lobe subsegmental atelectasis is noted. No significant findings in the partially imaged abdomen. No aggressive osseous lesion. Multiple chronic, healed bilateral rib fractures. Impression: 1. Patchy groundglass densities within t he right upper lobe could represent the sequelae of recent pneumonia. Suggest clinical correlation. 2. Significant underlying pulmonary emph ysema. 3. Small bilateral pleural effusions. Signed: Omar Pathak MD Report Verified Date/Time: 06/22/2020 10:51:51 Reading Location: [facility] Radiology Reading Room Performing Organization Address City/[facility] Ph one Number GE RIS * Sputum Culture + Gram Stain (06/22/2020 9:58 AM CDT) Result 1+ Normal respiratory raine [facility] Gram Stain Result 1+ WBCs [facility] Gram Stain Result No organisms seen [facility] Specimen Sputum - Expectorated Performing Organization Address [facility] Ph one Number [address] [address] [facility] * 2D Echo W/Doppler(CW/PW/Color) (06/22/2020 7:43 AM CDT) Ejection Fraction [facility] ECHO HEARTLAB [facility] Specimen Narrative Performed At Transthoracic Echocardiography Report (TTE) [facility] ECH O HEARTLAB Demographics [facility] Patient Name STEVE BENEDICT Date of Study 06/22/2020 [id number] GenderMale Visit Number [id number] Joe scales [id number] Room Number 7212 Number Date of Birth1945 Referring Physician George Wheeler Age74 year(s) [employer]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 Clinical History HGB 8.7 HCT 27.8 % ACUTE RESPIRATORY FAILURE Contrast Medium: Definity. Height: 69 inches Weight: 112.94 kg (24 9 lbs) BSA: 2.27 m^2 BMI: 36.77 kg/m^2 HR: 120 bpm BP: 138/116 mmHg Summary 1. The left ventricle is chamber size ( by vol index) is normal. No evidence of LV hypertrophy. Septal patience on is abnormal, likely related to conduction abnormality. The other segme nts are mildly hypokinetic. LVEF by Fritz's method of disk assessment is mildly reduced (40-44%). LA size is moderately enlarged (42-48 ml/m2) . 2. RV chamber size is mild to moderatel y enlarged. Global RV systolic function is normal.RA cavity size is mo derately enlarged . Estimated peak systolic PA pressure is 55-60 mmHg (mod erate pulmonary hypertension). 3. Mild tricuspid regurgitation. Previous Study No prior studies available for comparis on. Signature Findings Technical Quality: Technically adequate exam. Rhythm/BPAt rial fibrillation Left Ventricle LV endoc ardium is adequately visualized with IV ultrasound enhancing agent. The left ventricle is chamber size (by vol index) is normal (male - LVED vol - 34-74ml/m2). No evidence of LV hypertrophy. Septal motion is abnormal, likely related to conduction abnormality . The other segments are mildly hypokinetic. Global LV systolic function mildly reduced . LVEF by Fritz's method of disk assessment is mildly reduced (40-44%) . Degree of diastolic dysfunction (LAP assessment) is inconclusive due to arrhythmia . Left AtriumLA s ize is moderately enlarged (42-48 ml/m2) . Right VentricleRV chamb er size is mild to moderately enlarged. Global RV systolic function is normal . Right Atrium RA cav ity size is moderately enlarged . Aortic Valve Mild A oV cusp thickening. No evidence of aortic regurgitation. Mitral Valve Mild m itral annular calcification. Trace mitral regurgitation. Tricuspid ValveTV struc ture is normal. Mild tricuspid regurgitation. Estimated peak systolic PA pressure is 55-60 mmHg (moderate pulmonary hypertension) . Pulmonic Valve Normal P V structure and function by limited views and Doppler. Aorta Aortic root size (SInus of Valsalva diameter) is normal . PericardiumNo p ericardial effusion is visualized. IVC/SVC/PA/PV/PleuralThe inferior v mik cava size is increased . The estimated RA pressure by IVC dynamics 5-10mmHg . Chambers/Structures Left Atrium LA Volume: 108.1 ml LA Area: 28.47 cm^2 LA Vol. Index: 48 ml/m^2 Left Ventricle LVIDd: 4.83 cm LV Septum Diastolic: 1.1 cm LV Septum Systolic: 1.28 cm LV PW Diastolic: 1.05 cm LV PW Systolic: 1.38 cm LVEDV Fritz's:96.97 ml LVEDVI: 43 ml/m^2 LVESV Fritz's:55.87 ml LVESVI: 25 ml/m^2 LVEF Fritz's: 42.4 % LVOT Diameter: 2.13 cm Aorta Ao Root S of Kiera.: 3.33 cm Doppler/Quantitative Measurements Aortic Valve Peak Velocity: 1.32 m/s Mean Velocity: 0.91 m/s Peak Gradient: 6.98 mmHg Mean Gradient: 3.8 mmHg AV Area (continuity): 2.99 cm^2 AV VTI: 19.91 cm AV DVI: 0.84 LVOT Peak Velocity: 0.99 m/s Peak Gradient: 3.96 mmHg Mean Velocity: 0.64 m/s Mean Gradient: 1.93 mmHg LVOT Diameter: 2.13 cm LVOT VTI: 16.71 cm LVOT Area: 3.56 cm^2 LVOT SV:59.51 ml LVOT CO: 7.14 l/min LVOT CI: 3.15 l/min/m^2 Tricuspid Valve TR Velocity: 3.39 m/s TR Gradient: 46.1 mmHg Procedure Note Interface, External Ris In - 06/22/2020 5:45 PM CDT Transthoracic Echocardiography Report (TTE) Demographics Patient Name STEVE BENEDICT Date of Study 06/22/2020 Gender Male Visit Number [id number] Race Unknown Room Number 7212 Number Date of 1945 Referring Physician George Wheeler Age 74 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 Clinical History HGB 8.7 HCT 27.8 % ACUTE RESPIRATORY FAILURE Contrast Medium: Definity. Height: 69 inches Weight: 112.94 kg (249 lbs) BSA: 2.27 m^2 BMI: 36.77 kg/m^2 HR: 120 bpm BP: 138/116 mmHg Summary 1. The left ventricle is chamber size (by vol index) is normal. No evidence of LV hypertrophy. Septal motion is abnormal, likely related to conduction abnormality. The other segments are mildly hypokinetic. LVEF by Fritz's method of disk assessment is mildly reduced (40-44%). LA size is moderately enlarged (42-48 ml/m2) . 2. RV chamber size is mild to moderately enlarged. Global RV systolic function is normal.RA cavity size is moderately enlarged . Estimated peak systolic PA pressure is 55-60 mmHg (moderate pulmonary hypertension). 3. Mild tricuspid regurgitation. Previous Study No prior studies available for comparison. Signature Findings Technical Quality: Technically adequate exam. Rhythm/BP Atrial fibrillation Left Ventricle LV endocardium is adequately visualized with IV ultrasound enhancing agent. The left ventricle is chamber size (by vol index) is normal (male - LVED vol - 34-74ml/m2). No evidence of LV hypertrophy. Septal motion is abnormal, likely related to conduction abnormality . The other segments are mildly hypokinetic. Global LV systolic function mildly reduced . LVEF by Fritz's method of disk assessment is mildly reduced (40-44%) . Degree of diastolic dysfunction (LAP assessment) is inconclusive due to arrhythmia . Left Atrium LA size is moderately enlarged (42-48 ml/m2) . Right Ventricle RV chamber size is mild to moderately enlarged. Global RV systolic function is normal . Right Atrium RA cavity size is moderately enlarged . Aortic Valve Mild AoV cusp thickening. No evidence of aortic regurgitation. Mitral Valve Mild mitral annular calcification. Trace mitral regurgitation. Tricuspid Valve TV structure is normal. Mild tricuspid regurgitation. Estimated peak systolic PA pressure is 55-60 mmHg (moderate pulmonary hypertension) . Pulmonic Valve Normal PV structure and function by limited views and Doppler. Aorta Aortic root size (SInus of Valsalva diameter) is normal . Pericardium No pericardial effusion is visualized. IVC/SVC/PA/PV/Pleural The inferior vena cava size is increased . The estimated RA pressure by IVC dynamics 5-10mmHg . Chambers/Structures Left Atrium LA Volume: 108.1 ml LA Area: 28.47 cm^2 LA Vol. Index: 48 ml/m^2 Left Ventricle LVIDd: 4.83 cm LV Septum Diastolic: 1.1 cm LV Septum Systolic: 1.28 cm LV PW Diastolic: 1.05 cm LV PW Systolic: 1.38 cm LVEDV Fritz's:96.97 ml LVEDVI: 43 ml/m^2 LVESV Fritz's:55.87 ml LVESVI: 25 ml/m^2 LVEF Fritz's: 42.4 % LVOT Diameter: 2.13 cm Aorta Ao Root S of Kiera.: 3.33 cm Doppler/Quantitative Measurements Aortic Valve Peak Velocity: 1.32 m/s Mean Velocity: 0.91 m/s Peak Gradient: 6.98 mmHg Mean Gradient: 3.8 mmHg AV Area (continuity): 2.99 cm^2 AV VTI: 19.91 cm AV DVI: 0.84 LVOT Peak Velocity: 0.99 m/s Peak Gradient: 3.96 mmHg Mean Velocity: 0.64 m/s Mean Gradient: 1.93 mmHg LVOT Diameter: 2.13 cm LVOT VTI: 16.71 cm LVOT Area: 3.56 cm^2 LVOT SV:59.51 ml LVOT CO: 7.14 l/min LVOT CI: 3.15 l/min/m^2 Tricuspid Valve TR Velocity: 3.39 m/s TR Gradient: 46.1 mmHg Performing Organization Address [facility], [facility]1983 one Number [facility] ECHO [facility]ART[facility] * Iron, TIBC, % sat. (without ferritin) (06/22/2020 1:48 AM CDT) Iron 71.0 40.0 - 160.0 ug/dL [facility] TIBC 284 250 - 450 ug/dL [facility] Iron % Saturation 25 20 - 55 % [facility] Specimen Blood Narrative Performed At Differential Tester ID - NAUN W [facility] Performing Organization Address [facility] Ph one Number [place] [phone] [address] * Troponin I (06/22/2020 1:48 AM CDT) Only the most recent of 2 results within the time period is included. Troponin I 0.20 (HH) 0.00 - 0.03 ng/mL [facility] Specimen Blood Narrative Performed At Troponin I (TnI) levels must be interpreted in the co ntext of the presenting [facility] symptoms and the clinical findings. Elevated TnI leve ls indicate myocardial [facility] damage, but are not specific for ischem ic heart disease. Elevated TnI levels are seen in patients with other cardiac con ditions (including myocarditis and congestive heart failure), and slight T nI elevations occur in patients with other conditions, including sepsis, suzette al failure, acidosis, acute neurological disease, and persistent tachyarrhythmia . Differential Tester ID - NAUN Ordoñez Performing Organization Address [facility] [phone] [address] * Lactate dehydrogenase (LDH) (06/22/2020 1:48 AM CDT) LDH 321 (H) 125 - 220 U/L [facility] Specimen Blood Narrative Performed At Differential Tester ID - NAUN Ordoñez [facility] Performing Organization Address [facility] 0 [phone] [place] [address] * Haptoglobin (06/22/2020 1:48 AM CDT) Haptoglobin 117 14 - 258 mg/dL [facility] Specimen Blood Narrative Performed At Differential Tester ID - NTP [facility] Performing Organization Address [facility] 0 [phone] [address] * Ferritin (06/22/2020 1:48 AM CDT) Ferritin 199.45 5.00 - 275.00 ng/mL [facility] Specimen Blood Narrative Performed At Differential Tester ID - NAUN Ordoñez [facility] Performing Organization Address [facility] Ph one Number [place] [phone] [place], [place] [address] [facility] * Lipid panel (06/22/2020 1:48 AM CDT) Triglycerides 167 mg/dL [facility] Cholesterol 185 mg/dL [facility] HDL 33 mg/dL [facility] LDL Calculated 119 mg/dL [facility] Specimen Blood Narrative Performed At Triglyceride Reference Range: [facility] Low Risk <150 [facility] R [id number] High Risk 200-499 Very High Risk>=500 Cholesterol Reference Range: Low Risk <200 [id number] High Risk>240 HDL Cholesterol Reference Range: Low Risk >=60 High Risk <40 LDL Cholesterol Reference Range: Optimal<100 Near [id number] [id number] Very High >=190 Differential Tester ID - NAUN Ordoñez Performing Organization Address City/[facility] Ph one Number [place] [address] 0 [phone] [place] [address] * US renal complete (06/21/2020 8:50 PM CDT) Specimen Narrative Performed At FINAL REPORT [employer] Renal ultrasound dated 06/21/2020 Comment:Real-time transabdominal re nal ultrasound was performed. Right kidney measures 12.6 x 4.2 x 6.1 cm.Left kidney measures 11.6 x 6.4 x 6.2 cm.Right renal cortex m easures 1.1 cm.Left renal cortex measures 1.4 cm. Echogenicity of both renal parenchyma i s normal. A 2.9 x 2.7 x 3.1 cm cyst is seen in th e inferior pole right kidney. A 3.2 x 2.7 x 3.3 cm cyst is seen in th e midpole left kidney. No hydronephrosis is seen. The urinary bladder measures [address] void bladder measures 124 cc. Doppler ultrasound demonstrates patent main renal artery and vein bilaterally. Impression:Bilateral renal cysts. Signed: Jimy Ruffin MD Report Verified Date/Time: 0 22:03:21 Procedure Note Interface, External Ris In - 06/21/2020 10:05 PM CDT FINAL REPORT Renal ultrasound dated 06/21/2020 Comment: Real-time transabdominal renal ultrasound was performed. Right kidney measures 12.6 x 4.2 x 6.1 cm. Left kidney measures 11.6 x 6.4 x 6.2 cm. Right renal cortex measures 1.1 cm. Left renal cortex measures 1.4 cm. Echogenicity of both renal parenchyma is normal. A 2.9 x 2.7 x 3.1 cm cyst is seen in the inferior pole right kidney. A 3.2 x 2.7 x 3.3 cm cyst is seen in the midpole left kidney. No hydronephrosis is seen. The urinary bladder measures 191 cc. Post void bladder measures 124 cc. Doppler ultrasound demonstrates patent main renal artery and vein bilaterally. Impression: Bilateral renal cysts. Signed: Jimy Ruffin MD Report Verified Date/Time: 06/21/2020 22:03:21 Performing Organization Address City/[facility] Ph one Number GE RIS * Rapid Influenza A&B Screen (06/21/2020 6:19 PM CDT) Rapid Influenza A Antigen Negative Negative, Inconclusi ve [facility] Rapid influenza B Antigen Negative Negative, Inconclusi ve [facility] Specimen Nasal Performing Organization Address City/[facility] Ph one Number [place] [address] MEDICAL CENTER * Respiratory Panel [facility] (06/21/2020 6:15 PM CDT) Human Metapneumovirus Not detected Not detected, Equivocal [facility] Rhinovirus Not detected Not detected, Equivocal [facility] Influenza A Not detected Not detected, [facility] INFLUENZA A (NO SUBTYPE) [facility] Influenza A subtype H1 [facility] Influenza A Subtype H3 [facility] Influenza A Subtype [facility] H1-2009 [facility] Influenza B Not detected Not detected, [facility] Respiratory Syncytial Not detected Not detected, [facility] Virus [facility] Parainfluenza Virus 1 Not detected Not detected, [facility] Parainfluenza Virus 2 Not detected Not detected, [facility] Parainfluenza virus 3 Not detected Not detected, [facility] Parainfluenza Virus 4 Not detected Not detected, [facility] Adenovirus Not detected Not detected, [facility] Coronavirus 229E Not detected Not detected, [facility] Coronavirus HKU1 Not detected Not detected, [facility] Coronavirus NL63 Not detected Not detected, [facility] Coronavirus OC43 Not detected Not detected, [facility] Bordetella Pertussis Not detected Not detected, [facility] Chlamydophila Pneumoniae Not detected Not detected, Equivoc al [facility] Mycoplasma Pneumoniae Not detected Not detected, [facility] Specimen Nasopharyngeal Narrative Performed At Other viruses and bacteria not targeted by this PCR p anahi cannot be excluded; [facility] therefore clinical correlation and follow up of serol ogy, culture results, and [facility] other molecular studies is required. Th e results are not intended to be used as the sole means for clinical diagnosis o r patient management decisions. This sample was tested at the [facility] [employer] [facility] using the Medafor Respiratory Panel. It is FDA cleared and has been verified and approved by the [facility] Molecular Diagnos tics Laboratory for clinical use on nasopharyngeal swab specimens. The performance of the Film[employer] RP has not been established in individuals who received influenza vaccine.Recent a dministration of a nasal influenza vaccine may cause false positive result s for Influenza A and/or Influenza B. Performing Organization Address [facility] Ph one Number [facility] [address] [place], [place] [address] [facility]ENTER * Wound culture + gram stain (06/21/2020 6:15 PM CDT) Result 4+ Stenotrophomonas [facility] maltophilia (A) [facility] Result 4+ Stenotrophomonas [facility] maltophilia (A)Comment: of a [facility] second type Result 4+ Jennifer albicans (A) [facility] Result 3+ Enterococcus faecalis (A) [facility] Gram Stain Result <1+ WBCs [facility] Gram Stain Result <1+ gram negative rods [facility] Gram Stain Result <1+ gram positive cocci in [facility] Gram Stain Result <1+ yeast [facility] Gram Stain Result <1+ gram variable rods [facility] Specimen Wound Narrative Performed At 4+ Skin raine [facility] Antibiotic Method Susceptibility Organism Ceftazidime >16: Resistant Stenotrophomonas maltophilia Levofloxacin <=1: Susceptible Stenotrophomonas maltophilia Minocycline <=1: Susceptible Stenotrophomonas maltophilia Trimethoprim + Sulfamethoxazole <=40: Susceptible Stenotrophomonas maltophilia Ceftazidime <=1: Susceptible Stenotrophomonas maltophilia Levofloxacin <=1: Susceptible Stenotrophomonas maltophilia Minocycline <=1: Susceptible Stenotrophomonas maltophilia Trimethoprim + Sulfamethoxazole <=40: Susceptible Stenotrophomonas maltophilia Ampicillin <=2: Susceptible Enterococcus faecalis Linezolid 2: Susceptible Enterococcus faecalis Vancomycin 2: Susceptible Enterococcus faecalis Performing Organization Address [facility] Ph one Number [facility] [address] [place], [place] [address] [facility] * MRSA screen (06/21/2020 6:15 PM CDT) Result No MRSA isolated [facility] Specimen Nasal Performing Organization Address [facility] one Number [address] [address] [facility] * Blood Culture - Routine (Left Venipuncture) (06/21/2020 5:35 PM CDT) Only the most recent of 2 results within the time period is included. Result No growth in 5 days [facility] Specimen Blood Performing Organization Address [facility] one Number [address] [facility] * Procalcitonin (06/21/2020 5:34 PM CDT) Procalcitonin 0.51 (H) <0.05 ng/mL [facility] Specimen Blood Narrative Performed At SEPSIS RISK (ng/mL) [facility] Low:0.05-0.50 [facility] Intermediate: 0.51-2.00 High: >=2.01 Performing Organization Address [facility] one Number [address] [facility] * TSH/Free T4 If Indicated (06/21/2020 5:34 PM CDT) TSH 3.664 0.350 - 4.940 uIU/mL [facility] Specimen Blood Narrative Performed At Differential Tester ID - NAUN W [facility] Performing Organization Address [facility] one Number [address] [facility] * aPTT (06/21/2020 5:34 PM CDT) PTT 49.2 (H) 22.5 - 36.0 seconds [facility] Specimen Blood Performing Organization Address [facility] Ph one Number [address] [facility] * Prothrombin time/INR (06/21/2020 5:34 PM CDT) Protime 19.8 (H) 11.9 - 14.[address] [facility] INR 1.73 <=5.90 [facility] Specimen Blood Narrative Performed At Effective 03/24/2019: PT Reference Range Change [facility] New: 11.9-14.2Previous: 11.7-14.7 [facility] MEDICAL CE NTER RECOMMENDED COUMADIN/WARFARIN INR THERA PY RANGES STANDARD DOSE: 2.0-3.0Includes: PRO PHYLAXIS for venous thrombosis, systemic embolization; TREATMENT for venous thro mbosis and/or pulmonary embolus. HIGH RISK: Target INR is 2.5-3.5 for pa tients wiht mechanical heart valves. Performing Organization Address [facility] one Number [address] [facility] * Fibrinogen (06/21/2020 5:34 PM CDT) Fibrinogen 748 (H) 225 - 434 mg/dl [facility] Specimen Blood Performing Organization Address [facility] one Number [address] [facility] * Urinalysis w/Microscopic + Reflex to Culture (06/21/2020 5:18 PM CDT) Color, UA Yellow [facility] Clarity, UA Clear [facility] Specific [place], UA 1.017 1.001 - 1.035 [facility] pH, UA 5.0 5.0 - 8.0 [facility] Protein, UA 10 mg/dL (A) Negative [facility] Glucose, UA Negative Negative [facility] Ketones, UA Negative Negative [facility] Bilirubin, UA Negative Negative [facility] Blood, UA Negative Negative [facility] Nitrite, UA Negative Negative [facility] Leukocytes, UA Moderate (A) Negative [facility] Urobilinogen, UA 0.2 0.2 - 1.0 mg/dL [facility] RBC, UA 1 /HPF [facility] WBC, UA 3 /HPF [facility] Mucus Rare [facility] Squam Epithel, UA 2 /HPF [facility] Hyaline Casts, UA 13 /LPF [facility] Specimen Source [facility] Specimen Urine Narrative Performed At Differential Tester ID - [auto] [facility] Differential Tester ID - [facility] Performing Organization Address City/[facility] Ph one Number [place] [address] [address] [phone] [place] [address] * Strep pneumoniae antigen (06/21/2020 5:18 PM CDT) Strep pneumoniae Antigen Presumptive negative for Presumptive negative for [facility] pneumococcal pneumonia - see pneumococcal pneumonia - [facility] comment see comment, Presumptive negative for pneumococcal meningitis - see comment Specimen Urine Narrative Performed At Presumptive negative for pneumococcal p neumonia, suggesting no current or recent [facility] pneumococcal infection. Infection due t o S. pneumoniae cannot be ruled out since [facility] the antigen present in the sample may b e below the detection limit of the test. Performing Organization Address [facility] Ph one Number [place] [address] [address] [phone] [address] * Legionella antigen, urine (06/21/2020 5:18 PM CDT) Legionella Urine Antigen Negative - see commentComment: [facility] Negative for L. pneumophila [facility] serogroup 1 antigen, suggesting no recent or current infection with this serogroup. Legionellosis cannot be ruled out since other serogroups and species may cause disease. Specimen Urine Performing Organization Address City/[facility] one Number [address] 0 [phone] [address] * Sodium, random urine (06/21/2020 5:18 PM CDT) Sodium Urine <20 meq/L [facility] Specimen Urine Narrative Performed At Reference Range: No Normals [facility] Differential Tester ID - BS [facility] Performing Organization Address [facility] Ph one Number [address] 0 [phone] [address] * Osmolality, urine (06/21/2020 5:18 PM CDT) Osmolality, Ur 374 50-1,200 mOsm/kg mOsm/kg [facility] Specimen Urine Performing Organization Address [facility] Ph one Number [address] 0 [phone] [place] [address] * Creatinine, random urine (06/21/2020 5:18 PM CDT) Creatinine, Ur 144.3 mg/dL [facility] Specimen Urine Narrative Performed At Reference Range: No Normals [facility] Differential Tester ID - BS [facility] Performing Organization Address [facility] Ph one Number [place] [address] [address] [phone] [place] [address] after 07/30/2019 Insurance Payer Benefit Subscriber ID Type Phone Address Plan / Group BLUE CROSS/[employer] BCBS ADV xxxxxxxxxxxx [phone] [address] [place] [address] EXCHANGE HUMANA - MEDICARE MGD HUMANA xxxxxxxxx [facility] CARE MEDICARE Contracted ADV [phone] Advance Directives For more information, please contact: [facility] [address] [place] [address] Date Inactivated Comments Code Status Date Activated 07/29/2020 6:59 AM Full Code 07/07/2020 11:15 PM This code status was determined by: Patient 07/07/2020 11:15 PM Partial Code 06/30/2020 12:15 PM This code status was determined by: Patient Drug Protocol After Arrest Occurs? Yes Mechanical Ventilation with Intubation? No Bag/Mask? Yes Internal/External Pacemaker? Yes Transfer to Critical Care? Yes Chest Compressions? No Defibrillation/Cardioversion? No 06/30/2020 12:15 PM DNAR 06/22/2020 6:03 PM This code status was determined by: Patient Has the consent form been signed? Yes Have you Written ACP Note: Yes 06/22/2020 6:03 PM Full Code 06/21/2020 3:20 PM This code status was determined by: Patient
--- OUTSIDE RECORDS SUMMARY | 2020-07-30 19:31 | XMS REPORT | Clinical Summary ---
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 Role Phone Asked, No Pcp PCP [...] of multiple ribs of right side 05/05 Surgical History Surgery Date Site/Laterality Comments REVISION, PLACEMENT, PAIN PUMP CARDIAC SURGERY ABLATION, VEIN Medical History Medical History Date Comments COPD (chronic obstructive pulmonary disease) (HCC) Diabetes mellitus (HCC) Atrial fibrillation (HCC) Hypertension Neuropathy Glaucoma Gout Osteoarthritis Coronary artery disease Congestive heart failure (CHF) (HCC) Ankylosing spondylitis (HCC) Heart failure (HCC) BPH (benign prostatic hyperplasia) CKD (chronic kidney disease) Social History Date Tobacco Use Types Packs/Day Years Used Former Smoker Smokeless Tobacco: Never Used Drinks/Week oz/Week Comments Alcohol Use Not Currently Sex Assigned at Date Recorded Not on file Last Filed Vital Signs Not on file Plan of Treatment Health Maintenance Due Date Last Done Comments COLONOSCOPY SCREENING 1994 SHINGLES VACCINES (#1) 1994 65+ PNEUMOCOCCAL VACCINE 2009 (1 of 1 - PPSV23) INFLUENZA VACCINE 05/27/2020 Results Not on fileafter 07/30/2019 Insurance Type Payer Benefit Subscriber ID Effective Phone Address Plan / Dates Group PPO HU[employer]NA MEDICARE HUMANA [id number] 2019-P MEDICARE resent PPO/PFFS/E [facility] Advance Directives For more information, please contact: [phone] 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
--- OUTSIDE RECORDS SUMMARY | 2020-07-30 19:32 | XMS REPORT | Continuity of Care Document ---
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 Capsule [Flomax] 0.4 mg = 1 cap, PO, BID, 0 Refill(s) Active 04/07/2020 [facility] nter Testosterone Cypionate 200 mg/mL intramuscular solutio n 200 mg = 1 ml, IM, q2wk, 0 Refill(s) Active 04/07/2020 [facility] nter Insulin regular Notes: (Same a s: Humulin R) Roll in palms of hands gently; Do not shake vigorously. WASTE: F/P - Black; E - Municipal Trash Bin Stable for 31 days at room temperature Expires in days from Date Inactive 04/07/2020 [facility] nter sugammadex (ANES) Route: IV, D rug form: SOLN, ONCE, Stop date: 04/07/20 10:24:00 CDT Inactive 04/07/2020 [facility] nter norepinephrine (ANES) Route: I V, Drug form: INJ, ONCE, Stop date: 04/07/20 10:18:00 CDT Inactive 04/07/2020 [facility] nter sugammadex Notes: (Same as: Br idion) No Longer Active 04/07/2020 [facility] albuterol (ANES) Route: INHALA TION, Drug form: AERO/A, ONCE, Stop date: 04/07/20 9:48:00 CDT Inactive 04/07/2020 [facility] nter ceFAZolin (ANES) Route: IV, Dr ug form: INJ, ONCE, Stop date: 04/07/20 9:38:00 CDT Inactive 04/07/2020 [facility] nter fentaNYL (ANES) Route: IV, Tristan g form: INJ, ONCE, Stop date: 04/07/20 9:33:00 CDT Inactive 04/07/2020 [facility] nter esmolol (ANES) Route: IV, Drug form: INJ, ONCE, Stop date: 04/07/20 9:33:00 CDT Inactive 04/07/2020 [facility] nter Hydralazine Notes: (Same as: A presoline) Push over 5 minutes Inactive 04/07/2020 [facility] esmolol Notes: (Same as: Brevi bloc) Inactive 04/07/2020 [facility] Labetalol 10 mg, 2 mL, Route: IVP, Drug form: INJ, Q5Min, Dosing Weight 99.2, kg, PRN Elevated BP, Start date: 04/07/20 9:31:00 CDT, Duration: 5 doses or times, Stop date: 04/08/20 0:00:00 CDT, 0 Inactive 04/07/2020 [facility] Acetaminophen Notes: Max aceta minophen 4000 mg/day (4 gm/day). (Same as: Tylenol Extra Strength) Inactive 04/07/2020 [facility] nter Oxycodone Hydrochloride 5 MG Oral Tablet Notes: (Same as: Roxicodone) Inactive 04/07/2020 [facility] Hydromorphone Notes: Same as D ilaudid Inactive 04/07/2020 [facility] Flumazenil Notes: (Same as: Filomena mazicon) Inactive 04/07/2020 [facility] Naloxone Notes: Same as Narcan Inactive 04/07/2020 [facility] Ondansetron Notes: (Same as: Rosanna santamaria) MEDICATION WASTE Product Size: 4 mg Product Wasted: ___ mg Inactive 04/07/2020 [facility] lidocaine (ANES) Route: IV, Dr ug form: INJ, ONCE, Stop date: 04/07/20 9:28:00 CDT Inactive 04/07/2020 [facility] nter propofol (ANES) Route: IV, Tristan g form: INJ, ONCE, Stop date: 04/07/20 9:28:00 CDT Inactive 04/07/2020 [facility] nter rocuronium (ANES) Route: IV, D rug form: INJ, ONCE, Stop date: 04/07/20 9:28:00 CDT Inactive 04/07/2020 [facility] nter phenylephrine (ANES) Route: IV , Drug form: INJ, ONCE, Stop date: 04/07/20 9:12:00 CDT Inactive 04/07/2020 [facility] nter sugammadex Notes: (Same as: Br idion) Inactive 04/07/2020 [facility] Saline Flush 0.9% Notes: Same as: BD Posiflush Sterile No Longer Active 04/07/2020 [facility] Clobetasol Propionate 0.0005 MG/MG Topical Ointment Notes: (clobetasol propionate 0.05% 15 gm top OIN) (Same As: Temovate) No Longer Active 04/07/2020 [facility] Vitamin D3 Notes: Same as : Vi tamin D3 No Longer Active 04/07/2020 [facility] 24 HR mirabegron 50 MG Extended Release Tablet [Myrbetriq] Notes: (Same as: Myrbetriq ER) Non-Formulary No Longer Active 04/07/2020 [facility] Dulcolax Laxative Notes: (Same As: Dulcolax, Bisco-Lax) No Longer Active 04/07/2020 [facility] Clonazepam 0.5 mg, 1 tab, Rout e: PO, Drug form: TAB, BID, Dosing Weight 99.2, kg, PRN Anxiety, Start date: 04/07/20 8:51:00 CDT, Duration: 30 day, Stop date: 05/07/20 8:50:00 CDT, 0 No Longer Active 04/07/2020 [facility] Metolazone 5 MG Oral Tablet No bharat: (Same as: Zaroxolyn) No Longer Active 04/07/2020 [facility] Acetaminophen Notes: Do not ex ceed 4 gm/day. (Same as: Tylenol) No Longer Active 04/07/2020 [facility] Acetaminophen 325 MG / Hydrocodone Huber trate 10 MG Oral Tablet Notes: Do not exceed 4gm/day of acetamin ophen. (Same as: [place] 325/10) No Longer Active 04/07/2020 [facility] Hydromorphone Notes: Same as D ilaudid Inactive 04/07/2020 [facility] Ondansetron Notes: (Same as: Rosanna santamaria) MEDICATION WASTE Product Size: 4 mg Product Wasted: ___ mg No Longer Active 04/07/2020 [facility] Saline Flush 0.9% Notes: Same as: BD Posiflush Sterile No Longer Active 04/07/2020 [facility] Methadone Notes: (Same as: Dol ophine) No Longer Active 04/07/2020 [facility] Lactated Ringers Injection IV (ANES) 1000 mL Route: IV, Total Volume: 1,000, Start date: 04/07/20 7:34:00 CDT, Stop date: 04/07/20 8:34:00 CDT Inactive 04/07/2020 [facility] 24 HR mirabegron 50 MG Extended Release Tablet [Myrbetriq] 50 mg = 1 tab, PO, Daily, # 90 tab, 0 Re fill(s), [id number] 04/04/[facility] Wal-Zyr 10 mg, PO, QPM, 0 Refi ll(s) No Longer Active 04/03/2020 [facility] gabapentin 300 MG Oral Capsule 300 mg = 1 cap, PO, QPM, # 90 cap, 1 Refill(s) No Longe r Active 04/03/2020 [facility] nter clonazePAM 0.5 mg oral tablet 0.5 mg = 1 tab, PO, BID, PRN anxiety, # 60 tab, 0 Refill(s) No Longer Active 04/03/2020 [facility] nter methenamine hippurate 25 gm, P O, QAM & PM, 0 Refill(s) No Longer Active 04/03/2020 [facility] tamsulosin 0.4 mg oral capsule 0.4 mg = 1 cap, PO, QAM & PM, # 90 cap, 0 Refill(s) No Longer Active 04/03/2020 [facility] nter baclofen 10 mg oral tablet 10 mg = 1 tab, PO, QAM & PM, # 270 tab, 0 Refill(s) No Longer Active 04/03/2020 [facility] nter Glucotrol 2.5 mg, 0.5 tab, Rou te: PO, Drug form: TAB, Before Breakfast, Start date: 11/11/19 10:00:00 RECONSTRUCTIVE DENTIST, Duration: 30 day, Stop date: 12/11/19 7:30:00 RECONSTRUCTIVE DENTIST, 0 Inactive 11/11/2019 [facility] nter 200 ACTUAT Albuterol 0.09 MG/ACTUAT Mete red Dose Inhaler [ProAir HFA] 180 microgram = 2 puff, INHALATION, Domingo y, 0 Refill(s) Active 11/11/2019 [facility] Oxygen Oxygen, 1 btl, MISC, Be dtime, Refill(s) 0 Active 11/11/2019 [facility] ProAir HFA ProAir HFA, 1 - 2 p uffs, PO, Daily, Refill(s) 0 Active 11/11/2019 [facility] Acetaminophen 300 MG / Codeine Phosphate 30 MG Oral Tablet 1 tab, PO, Q6H, PRN Pain Score 7-10, # 3 0 tab, 0 Refill(s) Active 11/11/2019 [facility] 200 ACTUAT Albuterol 0.09 MG/ACTUAT Mete red Dose Inhaler [ProAir HFA] 180 microgram, 2 puff, Route: INHALATION , Drug Form: AERO/A, Dosing Weight 94.091, kg, Daily, Start date: 11/11/19 9:00:00 RECONSTRUCTIVE DENTIST, Duration: 30 day, Stop date: 12/10/19 9:00:00 RECONSTRUCTIVE DENTIST Inactive 11/11/2019 [facility] nter ProAir HFA ProAir HFA, 1 - 2 p uffs, Route: PO, Daily, 11/11/19 9:00:00 RECONSTRUCTIVE DENTIST, Duration: 30 day, Stop date: 12/10/19 9:00:00 RECONSTRUCTIVE DENTIST Inactive 11/11/2019 [facility] Allopurinol Notes: (Same as: Z yloprim) Inactive 11/11/2019 [facility] Aspirin 81 MG Enteric Coated Tablet Notes: Do not crush or chew. (Same As: Ecotrin) Inactive 11/11/2019 [facility] nter Bumetanide Notes: (Same As: Bu yelena) Inactive 11/11/2019 [facility] Vitamin D3 1000 intl units oral tablet Notes: Same as : Vitamin D3 Inactive 11/11/2019 [facility] Clobetasol Propionate 0.0005 MG/MG Topical Ointment Notes: (clobetasol propionate 0.05% 15 gm top OIN) (Same As: Temovate) Inactive 11/11/2019 [facility] clopidogrel Notes: (Same As: P lavix) Inactive 11/11/2019 [facility] Colchicine 0.6 mg, 1 tab, Rout e: PO, Drug form: TAB, Daily, Dosing Weight 94.091, kg, Start date: 11/11/19 9:00:00 RECONSTRUCTIVE DENTIST, Duration: 30 day, Stop date: 12/10/19 9:00:00 RECONSTRUCTIVE DENTIST, 0 Inactive 11/11/2019 [facility] nter ferrous sulfate Notes: Give wi th food. "Do Not Crush" Inactive 11/11/2019 [facility] Metolazone 5 MG Oral Tablet No bharat: (Same as: Zaroxolyn) Inactive 11/11/2019 [facility] 24 HR mirabegron 50 MG Extended Release Tablet [Myrbetriq] 50 mg, 1 tab, Route: PO, Drug form: ERTA B, Daily, Dosing Weight 94.091, kg, Start date: 11/11/19 9:00:00 RECONSTRUCTIVE DENTIST, Duration: 30 day, Stop date: 12/10/19 9:00:00 RECONSTRUCTIVE DENTIST Inactive 11/11/2019 [facility] Prednisone Notes: (Same as: Pr edniSONE) Take with food. Inactive 11/11/2019 [facility] Xarelto Notes: (Same as: Xarel to) Administer with food Inactive 11/11/2019 [facility] Sertraline Notes: (Same as: Z oloft) Inactive 11/11/2019 [facility] Budesonide 0.25 MG/ML Inhalant Solution Notes: (Same As: Pulmicort) Inactive 11/11/2019 [facility] glimepiride 1 mg, 1 tab, Route : PO, Drug form: TAB, Breakfast, Dosing Weight 94.091, kg, Start date: 11/11/19 8:00:00 RECONSTRUCTIVE DENTIST, Duration: 30 day, Stop date: 12/10/19 8:00:00 RECONSTRUCTIVE DENTIST Inactive 11/11/2019 [facility] Thyroxine 100 microgram, 1 tab , Route: PO, Drug form: TAB, Q630AM, Dosing Weight 94.091, kg, Start date: 11/11/19 6:30:00 RECONSTRUCTIVE DENTIST, Duration: 30 day, Stop date: 12/10/19 6:30:00 RECONSTRUCTIVE DENTIST, 0 Inactive 11/11/2019 [facility] Triiodothyronine Notes: (Same as: Cytomel) Inactive 11/11/2019 [facility] Dilaudid Notes: Same as Dilaud id Inactive 11/11/2019 [facility] Fentanyl 25 microgram, Route: IV, ONCE, Dosing Weight 94.091, kg, Start date: 11/11/19 4:15:00 RECONSTRUCTIVE DENTIST, Stop date: 11/11/19 4:15:00 RECONSTRUCTIVE DENTIST Inactive 11/11/2019 [facility] Saline Flush 0.9% Notes: (Same as: BD Posiflush) No Longer Active 11/11/2019 [facility] Oxygen Oxygen, 1 btl, Route: M ISC, Bedtime, 11/10/19 21:00:00 RECONSTRUCTIVE DENTIST, Duration: 30 day, Stop date: 12/09/19 21:00:00 RECONSTRUCTIVE DENTIST No Longer Active 11/11/2019 [facility] Folic Acid 0.4 mg, 1 tab, Rout e: PO, Drug form: TAB, BID, Dosing Weight 94.091, kg, Start date: 11/10/19 21:00:00 RECONSTRUCTIVE DENTIST, Duration: 30 day, Stop date: 12/10/19 9:00:00 RECONSTRUCTIVE DENTIST, 0 No Longer Active 11/11/2019 [facility] Pramipexole 0.25 mg, 2 tab, Ro demetrio: PO, Drug form: TAB, Bedtime, Dosing Weight 94.091, kg, Start date: 11/10/19 21:00:00 RECONSTRUCTIVE DENTIST, Duration: 30 day, Stop date: 12/09/19 21:00:00 RECONSTRUCTIVE DENTIST No Longer Active 11/11/2019 [facility]ter ropinirole 0.5 mg, Route: PO, Drug form: TAB, Bedtime, Dosing Weight 94.091, kg, Start date: 11/10/19 21:00:00 RECONSTRUCTIVE DENTIST, Duration: 30 day, Stop date: 12/09/19 21:00:00 RECONSTRUCTIVE DENTIST No Longer Active 11/11/2019 [facility] Albuterol 0.83 MG/ML Inhalant Solution Notes: SEE RT DOCUMENTATION (Same as: Proventil) No Longer Active 11/11/2019 [facility] nter latanoprost Notes: Keep refrig erated. (Same as:Xalatan) Opened bottle may be stored at room temperature for 6 weeks No Longer Active 11/10/2019 [facility] 24 HR Metoprolol Tartrate 25 MG Extended Release Tablet [Toprol] Notes: (Same as: Toprol XL) Do Not Crush 12.5 mg = 1/2 x 25 mg TAB No Longer Active 11/10/2019 [facility] Potassium Chloride Notes: (Manfred e as: K-Dur 20) "Do Not Crush" Give with food and full glass of water For patients unable to swallow tablet, dissolve in one half glass of water. Allow about 2 minutes for the tab lets to disintegrate. Stir before giving to prepare slurry and administer. Please exclude Patients with feeding tube less than 14 Czech (Dobhoff, J-tube etc) and pediatric and patients. No Longer Active 11/10/2019 [facility] Alprazolam 0.5 MG Oral Tablet Notes: With food or milk (Same as: Xanax) No Longer Active 11/10/2019 [facility] Dulcolax Laxative Notes: (Same As: Dulcolax, Bisco-Lax) No Longer Active 11/10/2019 [facility] acetaminophen-codeine #3 Notes : Do not exceed 4gm/day of acetaminophen. (Same as: Tylenol with Codeine # 3) No Longer Active 11/10/2019 [facility] Saline Flush 0.9% Notes: (Same as: BD Posiflush) No Longer Active 11/10/2019 [facility] protamine (ANES) Route: IV, Dr ug form: INJ, ONCE, Stop date: 11/10/19 15:12:00 RECONSTRUCTIVE DENTIST Inactive 11/10/2019 [facility] glycopyrrolate (ANES) Route: I V, Drug form: INJ, ONCE, Stop date: 11/10/19 15:12:00 RECONSTRUCTIVE DENTIST Inactive 11/10/2019 [facility] neostigmine (ANES) Route: IV, Drug form: INJ, ONCE, Stop date: 11/10/19 15:12:00 RECONSTRUCTIVE DENTIST Inactive 11/10/2019 [facility] norepinephrine (ANES) Route: I V, Drug form: INJ, ONCE, Stop date: 11/10/19 14:39:00 RECONSTRUCTIVE DENTIST Inactive 11/10/2019 [facility] n[facility] heparin (ANES) Route: IV, Drug form: INJ, ONCE, Stop date: 11/10/19 14:39:00 RECONSTRUCTIVE DENTIST Inactive 11/10/2019 [facility] nter propofol (ANES) Route: IV, Tristan g form: INJ, ONCE, Stop date: 11/10/19 14:34:00 RECONSTRUCTIVE DENTIST Inactive 11/10/2019 [facility] nter ceFAZolin (ANES) Route: IV, ug form: INJ, ONCE, Stop date: 11/10/19 14:34:00 RECONSTRUCTIVE DENTIST Inactive 11/10/2019 [facility] nter lidocaine (ANES) Route: IV, Dr ug form: INJ, ONCE, Stop date: 11/10/19 14:18:00 RECONSTRUCTIVE DENTIST Inactive 11/10/2019 [facility] rocuronium (ANES) Route: IV, D rug form: INJ, ONCE, Stop date: 11/10/19 14:18:00 RECONSTRUCTIVE DENTIST Inactive 11/10/2019 [facility] nter fentaNYL (ANES) Route: IV, Tristan g form: INJ, ONCE, Stop date: 11/10/19 14:18:00 RECONSTRUCTIVE DENTIST Inactive 11/10/2019 [facility] Fentanyl Notes: (Same as: Subl imaze) Preservative free. No Longer Active 11/10/2019 [facility] Hydromorphone Notes: Same as D ilaudid No Longer Active 11/10/2019 [facility] Flumazenil Notes: (Same as: Ro mazicon) No Longer Active 11/10/2019 [facility] Naloxone Notes: Same as Narcan No Longer Active 11/10/2019 [facility] Diphenhydramine Notes: (Same a s: Benadryl) No Longer Active 11/10/2019 [facility] Ondansetron Notes: (Same as: Rosanna santamaria) MEDICATION WASTE Product Size: 4 mg Product Wasted: ___ mg No Longer Active 11/10/2019 [facility] norepinephrine (ANES) 10 microgram Route: IV, Drug form: INJ, Start date: 11/10/19 13:51:00 RECONSTRUCTIVE DENTIST, Stop date: 11/10/19 14:51:00 RECONSTRUCTIVE DENTIST Inactive 11/10/2019 [facility] Sodium Chloride 0.9% IV (ANES) 1000 mL Route: IV, Total Volume: 1,000, Start date: 11/10/19 13:29:00 RECONSTRUCTIVE DENTIST, Stop date: 11/10/19 14:29:00 RECONSTRUCTIVE DENTIST Inactive 11/10/2019 [facility] methenamine hippurate 1 g oral tablet 1 gm = 1 tab, PO, BID, 0 Refill(s) Active 11/10/2019 [facility] Metolazone 5 MG Oral Tablet 5 mg = 1 tab, PO, Daily, 0 Refill(s) Active 11/10/2019 [facility] predniSONE 10 mg oral tablet 1 0 mg = 1 tab, PO, Daily, 3 Refill(s) Active 11/10/2019 [facility] ferrous sulfate 325 mg oral enteric coated tablet 325 mg = 1 tab, PO, Daily, 0 Refill(s) Active 11/10/2019 [facility] glimepiride 1 mg oral tablet 1 mg = 1 tab, PO, Breakfast, 0 Refill(s) Active 11/10/2019 [facility] Albuterol 0.83 MG/ML Inhalant Solution 2.5 mg = 3 mL, NEB, BID, am/pm, 0 Refill(s) Active 11/10/2019 [facility] Sodium Chloride 0.9% IV 1,000 mL 1,000 ml, Rate: 50 ml/hr, Infuse over: 20 hr, Route: IV, Dosing Weight 94.091 kg, Total Volume: 1,000, Start date: 11/10/19 10:52:00 RECONSTRUCTIVE DENTIST, Duration: 30 day, Stop date: 12/10/19 10:51:00 RECONSTRUCTIVE DENTIST, 2.16, m2, 0 No Longer Active 11/10/2019 [facility] Bacitracin 0.5 UNT/MG / Polymyxin B 10 U NT/MG Topical Ointment 1 appl, TOP, QID, # 30 gm, 0 Refill(s) Active 10/17/2019 [facility] Albuterol 0.83 MG/ML Inhalant Solution Notes: SEE RT DOCUMENTATION (Same as: Madhuri) Inactive 10/17/2019 [facility] Bacitracin 0.5 UNT/MG Topical Ointment 1 appl, Route: TOP, ONCE, Drug form: OINT, Start date: 10/16/19 18:58:00 RECONSTRUCTIVE DENTIST, Stop date: 10/16/19 18:58:00 RECONSTRUCTIVE DENTIST, 0 Inactive 10/17/2019 [facility]ter 24 HR mirabegron 50 MG Extended Release Tablet [Myrbetriq] 50 mg = 1 tab, PO, Daily, # 90 tab, 1 Re fill(s), Pharmacy: [facility] #[id number] Active 06/02/2019 [facility] Levofloxacin 500 MG Oral Tablet [Levaquin] 500 mg = 1 tab, PO, Q24H, X 7 day, # 7 tab, 0 Refill(s), Pharmacy: [facility] [id number] Active 05/18/2019 [facility] allopurinol 300 mg [...] mg, PO, Daily, 0 Refill(s) Active 04/19/2019 [facility] Fosfomycin 33.3 MG/ML Oral Suspension [Monurol] = 1 Pack, PO, ONCE, # 3 gm, 0 Refill(s), Pharmacy: [facility] [id number] Active 12/03/2018 [facility] Hydrochlorothiazide 50 MG / Spironolacto ne 50 MG Oral Tablet [Aldactazide] 1 tab, PO, PRN, 0 Refill(s) Active 11/30/2018 [facility] baclofen 10 mg oral tablet 10 mg = 1 tab, PO, TID, # 90 tab, 0 Refill(s) Active 11/30/2018 [facility] Budesonide 0.25 MG/ML Inhalant Solution 0.5 mg = 2 mL, NEB, Daily, # 60 ea, 11 Refill(s) Active 11/30/2018 [facility] carisoprodol 350 mg oral tablet 350 mg = 1 tab, PO, TID, PRN Muscle Spasms, # 42 tab, 0 Refill(s) Active 11/30/2018 [facility] Clobetasol Propionate 0.0005 MG/MG Topical Ointment TOP, Daily, 0 Refill(s) Active 11/30/2018 [facility] clopidogrel 75 mg oral tablet 75 [...] # 30 tab, 0 Refill(s) Active 11/30/2018 [facility] [facility] hydromorphone 8 mg oral tablet 8 mg = 1 tab, PO, BID, PRN Pain, 0 Refill(s) Active 11/30/[facility] Sodium Chloride 1.2 MEQ/ML Inhalant Solu tion [Hyper-Lamine] PRN, 0 Refill(s) Active 11/30/2018 [facility] Oxygen 1 btl, MISC, Bedtime, # 1 btl, 0 Refill(s) Active 11/30/2018 [facility] pantoprazole 40 mg oral enteric coated tablet 40 mg = 1 tab, PO, Daily, # 30 tab, 0 Refill(s) Active 11/30/2018 [facility] Potassium Chloride 20 mEq, BID , 0 Refill(s) Active 11/30/2018 [facility] pramipexole 0.125 mg oral tablet 0.125 mg = 1 tab, PO, Bedtime, # 30 tab, 1 Refill(s) Active 11/30/2018 [facility] 200 ACTUAT Albuterol 0.09 MG/ACTUAT Mete red Dose Inhaler [ProAir HFA] 2 puff, INHALATION, Daily, 0 Refill(s) Active 11/30/2018 [facility] non-formulary RAPATHA INJECTIO N 140MG Q2WEEK, Refill(s) 0 Active 11/30/2018 [facility] rOPINIRole 0.5 mg oral tablet 0.5 mg = 1 tab, PO, Bedtime, # 30 tab, 1 Refill(s) Active 11/30/2018 [facility] sertraline 50 mg oral tablet 5 0 mg = 1 tab, PO, Daily, # 30 tab, 0 Refill(s) Active 11/30/2018 [facility] rivaroxaban 15 MG Oral Tablet [Xarelto] 15 mg = 1 tab, PO, Daily, # 90 tab, 3 Refill(s) Active 11/30/2018 [facility] Aspirin 81 MG Enteric Coated Tablet 81 mg = 1 tab, PO, Daily, # 90 tab, 3 Refill(s) Active 11/30/2018 [facility] Folic Acid 400 MCG, BID, 0 Ref ill(s) Active 11/30/2018 [facility] Mucus Relief DM PO, BID, 0 Ref ill(s) Active 11/30/2018 [facility] Vitamin B12 Methylcobalamin SL , qWeek, 0 Refill(s) Active 11/30/2018 [facility] Vitamin D3 2000 intl units oral capsule 2,000 IntlUnit = 1 cap, PO, Daily, # 100 cap, 3 Refill(s) Active 11/30/2018 [facility] 24 HR mirabegron 50 MG Extended Release Tablet [Myrbetriq] See Instructions, TAKE 1 TABLET BY MOUTH EVERY DAY, # 90 tab, 0 Refill(s), [facility] [id number], please have patient call for appt prior to next refill Active 11/05/2018 [facility] Allergies, Adverse Reactions, Alerts Substance Category Reaction Severity Reaction type Status Date Reported Comments Source No Known Medication Allergies Assertion Drug aller gy [facility] Lyrica<sup>1</sup> Assertion Drug allergy Active [facility] Immunizations Immunization Date Given Site Status Last Updated Comments Source diphtheria/pertussis, acel/tetanus adult 10/17/2019 Right deltoid completed [facility] Results Order Name Results Value Reference Range Date Interpretation Comments Source ELECTROLYTES Potassium Lvl 3.2 3.5 - 5.1 04/20/2020 [facility] CHEM PANEL Magnesium Lvl 2.0 1.8 - 2.4 04/20/2020 [facility] CHEM PANEL Glucose Lvl 103 70 - 99 04/20/2020 [facility] CHEM PANEL BUN 39 7 - 22 04/20/2020 [facility] CHEM PANEL Creatinine Lvl 1.56 0.50 - 1.40 04/20/2020 [facility] CHEM PANEL Sodium Lvl 136 135 - 145 04/20/2020 [facility] CHEM PANEL Potassium Lvl 2.8 3.5 - 5.1 04/20/2020 Result Comment: Critical Result(s) harrison d to Aidenyecenia Cerda at 04/20/2020 07:23 by ANNABELLE. Read back OK. [facility] CHEM PANEL Chloride Lvl 97 95 - 109 04/20/2020 [facility] CHEM PANEL CO2 33 24 - 32 04/20/2020 [facility] CHEM PANEL AGAP 8.8 10.0 - 20.0 04/20/2020 [facility] CHEM PANEL Calcium Lvl 8.3 8.5 - 10.5 04/20/2020 [facility] CHEM PANEL eGFR 43 04/20/2020 [...] should be multiplied by the estimated BMI. [facility] RBC Morph Kay l (04/20/20 6:15 AM) Normal 04/20/2020 [facility] Plt Morph Kay l (04/20/20 6:15 AM) Normal 04/20/2020 [facility] Segs 73.4 45.0 - 75.0 04/20/2020 [facility] Lymphocytes 16.9 20.0 - 40.0 04/20/2020 [facility] Monocytes 7.8 2.0 - 12.0 04/20/2020 [facility] Eosinophils 1.0 0.0 - 4.0 04/20/2020 [facility] Basophils 0.9 0.0 - 1.0 04/20/2020 [facility] Neutrophils # 3.5 1.5 - 8.1 04/20/2020 [facility] Lymphocytes # 0.8 1.0 - 5.5 04/20/2020 [facility] Monocytes # 0.4 0.0 - 0.8 04/20/2020 [facility] Eosinophils # 0.1 0.0 - 0.5 04/20/2020 [facility] WBC 4.8 3.7 - 10.4 04/20/2020 [facility] RBC 4.39 4.70 - 6.10 04/20/2020 [facility] Hgb 12.1 14.0 - 18.0 04/20/2020 [facility] Hct 38.3 42.0 - 54.0 04/20/2020 [facility] MCV 87.2 80.0 - 94.0 04/20/2020 [facility] MCH 27.5 27.0 - 31.0 04/20/2020 [facility] MCHC 31.5 32.0 - 36.0 04/20/2020 [facility] RDW 19.6 11.5 - 14.5 04/20/2020 [facility] Platelet 183 133 - 450 04/20/2020 [facility] HEMATOLOGY MPV 8.0 7.4 - 10.4 04/20/2020 [facility] TOXICOLOGY Vanco Tr 17.2 04/19/2020 [facility] TOXICOLOGY Vanco Tr TND 1330 04/19/2020 [facility] CHEM PANEL Glucose Lvl 83 70 - 99 04/19/2020 [facility] CHEM PANEL BUN 36 7 - 22 04/19/2020 [facility] CHEM PANEL Creatinine Lvl 1.50 0.50 - 1.40 04/19/2020 [facility] CHEM PANEL Sodium Lvl 138 135 - 145 04/19/2020 [facility] CHEM PANEL Potassium Lvl 3.1 3.5 - 5.1 04/19/2020 [facility] CHEM PANEL Chloride Lvl 100 95 - 109 04/19/2020 [facility] CHEM PANEL CO2 35 24 - 32 04/19/2020 [facility] CHEM PANEL Calcium Lvl 9.2 8.5 - 10.5 04/19/2020 [facility] CHEM PANEL AGAP 6.1 10.0 - 20.0 04/19/2020 [facility] CHEM PANEL eGFR 45 04/19/2020 [...] should be multiplied by the estimated BMI. [facility] CHEM PANEL Magnesium Lvl 1.6 1.8 - 2.4 04/19/2020 [facility] CHEM PANEL Phosphorus 3.4 2.5 - 4.5 04/19/2020 [facility] HEMATOLOGY Plt Morph Kay l (04/19/20 5:04 AM) Normal 04/19/2020 [facility] HEMATOLOGY Segs 76.2 45.0 - 75.0 04/19/2020 [facility] HEMATOLOGY Lymphocytes 15.3 20.0 - 40.0 04/19/2020 [facility] HEMATOLOGY Monocytes 7.2 2.0 - 12.0 04/19/2020 [facility] HEMATOLOGY Eosinophils 0.6 0.0 - 4.0 04/19/2020 [facility] HEMATOLOGY Basophils 0.7 0.0 - 1.0 04/19/2020 [facility] HEMATOLOGY Neutrophils # 3.5 1.5 - 8.1 04/19/2020 [facility] HEMATOLOGY Lymphocytes # 0.7 1.0 - 5.5 04/19/2020 [facility] HEMATOLOGY Monocytes # 0.3 0.0 - 0.8 04/19/2020 [facility] HEMATOLOGY Hypochrom 1+ (04/19/20 5:04 AM) None Seen 04/19/2020 [facility] HEMATOLOGY WBC 4.6 3.7 - 10.4 04/19/2020 [facility] HEMATOLOGY RBC 4.73 4.70 - 6.10 04/19/2020 [facility] Hgb 12.8 14.0 - 18.0 04/19/2020 [facility] HEMATOLOGY Hct 41.5 42.0 - 54.0 04/19/2020 [facility] MCV 87.8 80.0 - 94.0 04/19/2020 [facility] MCH 27.1 27.0 - 31.0 04/19/2020 [facility] MCHC 30.8 32.0 - 36.0 04/19/2020 [facility] RDW 19.5 11.5 - 14.5 04/19/2020 [facility] Platelet 194 133 - 450 04/19/2020 [facility] MPV 7.8 7.4 - 10.4 04/19/2020 [facility] CHEM PANEL Glucose Lvl 77 70 - 99 04/18/2020 [facility] CHEM PANEL BUN 41 7 - 22 04/18/2020 [facility] CHEM PANEL Creatinine Lvl 1.60 0.50 - 1.40 04/18/2020 [facility] CHEM PANEL Sodium Lvl 138 135 - 145 04/18/2020 [facility] CHEM PANEL Chloride Lvl 98 95 - 109 04/18/2020 [facility] CHEM PANEL CO2 37 24 - 32 04/18/2020 [facility] CHEM PANEL AGAP 6.0 10.0 - 20.0 04/18/2020 [facility] CHEM PANEL Calcium Lvl 9.0 8.5 - 10.5 04/18/2020 [facility] CHEM PANEL eGFR 42 04/18/2020 [...] should be multiplied by the estimated BMI. [facility] CHEM PANEL Magnesium Lvl 2.1 1.8 - 2.4 04/18/2020 [facility] HEMATOLOGY WBC 4.8 3.7 - 10.4 04/18/2020 [facility] HEMATOLOGY RBC 4.57 4.70 - 6.10 04/18/2020 [facility] Hgb 12.5 14.0 - 18.0 04/18/2020 [facility] Hct 40.3 42.0 - 54.0 04/18/2020 [facility] MCV 88.3 80.0 - 94.0 04/18/2020 [facility] MCH 27.3 27.0 - 31.0 04/18/2020 [facility] MCHC 30.9 32.0 - 36.0 04/18/2020 [facility] RDW 19.9 11.5 - 14.5 04/18/2020 [facility] Platelet 196 133 - 450 04/18/2020 [facility] MPV 7.9 7.4 - 10.4 04/18/2020 [facility] Plt Morph Kay l (04/18/20 6:25 AM) Normal 04/18/2020 [facility] HEMATOLOGY Segs 73.6 45.0 - 75.0 04/18/2020 [facility] Lymphocytes 17.5 20.0 - 40.0 04/18/2020 [facility] Monocytes 8.1 2.0 - 12.0 04/18/2020 [facility] HEMATOLOGY Eosinophils 0.3 0.0 - 4.0 04/18/2020 [facility] HEMATOLOGY Basophils 0.5 0.0 - 1.0 04/18/2020 [facility] HEMATOLOGY Neutrophils # 3.6 1.5 - 8.1 04/18/2020 [facility] HEMATOLOGY Lymphocytes # 0.8 1.0 - 5.5 04/18/2020 [facility] HEMATOLOGY Monocytes # 0.4 0.0 - 0.8 04/18/2020 [facility] HEMATOLOGY Anisocyte 1+ *ABN* (04/18/20 6:25 AM) None Seen 04/18/2020 [facility] HEMATOLOGY Hypochrom 1+ (04/18/20 6:25 AM) None Seen 04/18/2020 [facility] TOXICOLOGY Vanco Lvl 15.8 04/17/2020 [facility] TOXICOLOGY Vanco Lvl 17.9 04/16/2020 [facility] CARDIAC ENZYMES BNP 420 <=100 pg/mL 04/15/2020 [facility] CHEM PANEL Phosphorus 3.1 2.5 - 4.5 04/15/2020 [facility] Basophils # 0.1 0.0 - 0.2 04/15/2020 [facility] Hypochrom 1+ (04/15/20 5:56 AM) None Seen 04/15/2020 [facility] TOXICOLOGY Vanco Lvl 25.5 04/14/2020 [facility] BACTERIAL - SEROLOGY MRSA by PCR Negative (04/14/20 7:47 AM) 04/14/2020 [facility] CARDIAC ENZYMES Troponin-I 0.13 0.00 - 0.40 04/14/2020 [facility] CHEM PANEL Phosphorus 4.5 2.5 - 4.5 04/14/2020 [facility] Sed Rate 54 0 - 15 04/14/2020 [facility] C-REACTIVE PROTEIN 106.0 <=2.9 mg/L 04/14/2020 [facility] CARDIAC ENZYMES Troponin-I 0.15 0.00 - 0.40 04/13/2020 [facility] IMMUNOLOGY Spec Type (UPE) rando m, 100x 04/13/2020 [facility] IMMUNOLOGY Tot Prot (UPE) 31 04/13/2020 [facility] IMMUNOLOGY Interp (UPE) Urine protein consists primarily of albumin. No monoclonal bands are identified. Interpretation performed at [facility]. 04/13/2020 [facility] URINE AND STOOL UA Turbidity Slight *ABN* (04/13/20 5:27 PM) Clear 04/13/2020 [facility] URINE AND STOOL UA Spec Grav 1.017 <=1.030 04/13/2020 [facility] URINE AND STOOL UA pH 5.0 5.0 - 8.0 04/13/2020 [facility] URINE AND STOOL UA Protein Negative mg/dL Negative mg/dL 04/13/2020 [facility] URINE AND STOOL UA Glucose Negative mg/dL Negative mg/dL 04/13/2020 [facility] URINE AND STOOL UA Ketones Negative mg/dL Negative mg/dL 04/13/2020 [facility] URINE AND STOOL UA Bili Negative *NA* (04/13/20 5:27 PM) Negative 04/13/2020 [facility] URINE AND STOOL UA Blood Negative (04/13/20 5:27 PM) Negative 04/13/2020 [facility] URINE AND STOOL UA Nitrite Positive *ABN* (04/13/20 5:27 PM) Negative 04/13/2020 [facility] URINE AND STOOL UA Leuk Est Negative (04/13/20 5:27 PM) Negative 04/13/2020 [facility] URINE AND STOOL UA Sq Epi Occasional /LPF Few /LPF 04/13/2020 [facility] URINE AND STOOL UA WBC 2 0 - 5 04/13/2020 [facility] URINE AND STOOL UA RBC 1 0 - 2 04/13/2020 [facility] URINE AND STOOL UA Bacteria Occasional /HPF None Seen /HPF 04/13/2020 [facility] URINE AND STOOL UA Hyal Cast 83 0 - 2 04/13/2020 [facility] URINE AND STOOL UA Color Demi 04/13/2020 [facility] URINE AND STOOL UA Urobilinogen <=1.0 mg/dL 0.1 - 1.0 04/13/2020 [facility] URINE CHEM U Prot/Creat 0.17 04/13/2020 [facility] URINE CHEM U Creatinine 206.00 04/13/2020 [facility] URINE CHEM U Sodium 12 04/13/2020 [facility] URINE CHEM U Protein 36.0 04/13/2020 [facility] URINE CHEM U Eos None Seen (04/13/20 5:27 PM) None Seen 04/13/2020 [facility] CARDIAC ENZYMES BNP 443 <=100 pg/mL 04/13/2020 [facility] CARDIAC ENZYMES Total CK 81 12 - 191 04/13/2020 [facility] CARDIAC ENZYMES Troponin-I 0.06 0.00 - 0.40 04/13/2020 [facility] CHEM PANEL Procalcitonin Lvl 0.58 0.00 - 0.10 04/13/2020 [facility] CHEM PANEL Total Protein 6.1 6.4 - 8.4 04/13/2020 [facility] CHEM PANEL Albumin Lvl 2.6 3.5 - 5.0 04/13/2020 [facility] CHEM PANEL ALT 21 0 - 65 04/13/2020 [facility] CHEM PANEL AST 25 0 - 37 04/13/2020 [facility] CHEM PANEL Alk Phos 75 39 - 136 04/13/2020 [facility] CHEM PANEL Bili Total 0.5 0.2 - 1.3 04/13/2020 [facility] CHEM PANEL B/C Ratio 23 6 - 25 04/13/2020 [facility] CHEM PANEL Globulin 3.5 2.7 - 4.2 04/13/2020 [facility] CHEM PANEL A/G Ratio 0.7 0.7 - 1.6 04/13/2020 [facility] CHEM PANEL Lactic Acid Lvl 2.0 0.5 - 2.2 04/13/2020 [facility] HEMATOLOGY D-Dimer 0.94 04/13/2020 [facility] HEMATOLOGY PT 13.2 12.0 - 14.7 04/13/2020 [facility] HEMATOLOGY INR 1.00 0.85 - 1.17 04/13/2020 [facility] HEMATOLOGY PTT 28.1 22.9 - 35.8 04/13/2020 [facility] DIAGNOSTIC S. aureus Not Detected (04/13/20 10:56 AM) Not Detected 04/13/2020 [facility] DIAGNOSTIC S. epidermidis Detected *ABN* (04/13/20 10:56 AM) Not Detected 04/13/2020 [facility] S. lugdunensis Not Detected (04/13/20 10:56 AM) Not Detected 04/13/2020 [facility] DIAGNOSTIC S. anginosus gr p Not Detected (04/13/20 10:56 AM) Not Detected 04/13/2020 [facility] DIAGNOSTIC S. agalactiae Not Detected (04/13/20 10:56 AM) Not Detected 04/13/2020 [facility] DIAGNOSTIC S. pneumoniae Not Detected (04/13/20 10:56 AM) Not Detected 04/13/2020 [facility] DIAGNOSTIC S. pyogenes Not Detected (04/13/20 10:56 AM) Not Detected 04/13/2020 [facility] DIAGNOSTIC E. faecalis Not Detected (04/13/20 10:56 AM) Not Detected 04/13/2020 [facility] E. faecium Not Detected (04/13/20 10:56 AM) Not Detected 04/13/2020 [facility] Staphylococcus spp. Detected *ABN* (04/13/20 10:56 AM) Not Detected 04/13/2020 [facility] Streptococcus s pp. Not Detected (04/13/20 10:56 AM) Not Detected 04/13/2020 [facility] Listeria spp. Not Detected (04/13/20 10:56 AM) Not Detected 04/13/2020 [facility] mecA Methicilli n Resistance Detected *ABN* (04/13/20 10:56 AM) Not Detected 04/13/2020 [facility] Daisha Vancomycin Resistance Not Detected (04/13/20 10:56 AM) Not Detected 04/13/2020 [facility] vanB Vancomycin Resistance Not Detected (04/13/20 10:56 AM) Not Detected 04/13/2020 [facility] TOXICOLOGY Vanco Tr 17.9 04/12/2020 [facility] TOXICOLOGY Vanco Tr TND 1930 04/12/2020 [facility] CHEM PANEL Glucose Lvl 108 70 - 99 04/10/2020 [facility] CHEM PANEL BUN 64 7 - 22 04/10/2020 [facility] CHEM PANEL Creatinine Lvl 1.77 0.50 - 1.40 04/10/2020 [facility] CHEM PANEL Sodium Lvl 136 135 - 145 04/10/2020 [facility] CHEM PANEL Potassium Lvl 3.7 3.5 - 5.1 04/10/2020 [facility] CHEM PANEL Chloride Lvl 91 95 - 109 04/10/2020 [facility] CHEM PANEL CO2 42 24 - 32 04/10/2020 Result Comment: Critical Result(s) called to Margarette Mathew at 04/10/2020 06:21 by . Read back OK. [facility] CHEM PANEL AGAP 6.7 10.0 - 20.0 04/10/2020 [facility] CHEM PANEL Calcium Lvl 9.2 8.5 - 10.5 04/10/2020 [facility] CHEM PANEL eGFR 37 04/10/2020 Result [...] be multiplied by the estimated BMI. [facility] TOXICOLOGY Vanco Tr 17.8 04/10/2020 [facility] TOXICOLOGY Vanco Tr TND 2000 04/10/2020 [facility] CHEM PANEL Glucose Lvl 136 70 - 99 04/09/2020 [facility] CHEM PANEL BUN 69 7 - 22 04/09/2020 [facility] CHEM PANEL Creatinine Lvl 2.00 0.50 - 1.40 04/09/2020 [facility] CHEM PANEL Sodium Lvl 137 135 - 145 04/09/2020 [facility] CHEM PANEL Potassium Lvl 4.1 3.5 - 5.1 04/09/2020 [facility] CHEM PANEL Chloride Lvl 91 95 - 109 04/09/2020 [facility] CHEM PANEL CO2 35 24 - 32 04/09/2020 [facility] CHEM PANEL AGAP 15.1 10.0 - 20.0 04/09/2020 [facility] CHEM PANEL Calcium Lvl 9.5 8.5 - 10.5 04/09/2020 [facility] CHEM PANEL eGFR 32 04/09/2020 Result [...] be multiplied by the estimated BMI. [facility] TOXICOLOGY Vanco Lvl 16.5 04/08/2020 [facility] CHEM PANEL Glucose Lvl 194 70 - 99 04/08/2020 [facility] CHEM PANEL BUN 65 7 - 22 04/08/2020 [facility] CHEM PANEL Creatinine Lvl 1.88 0.50 - 1.40 04/08/2020 [facility] CHEM PANEL Sodium Lvl 135 135 - 145 04/08/2020 [facility] CHEM PANEL Potassium Lvl 2.8 3.5 - 5.1 04/08/2020 Result Comment: Critical Result(s) harrison d to Filippo Gaona at 04/08/2020 11:26 by RG. Read back OK. [facility] CHEM PANEL Chloride Lvl 85 95 - 109 04/08/2020 [facility] CHEM PANEL CO2 43 24 - 32 04/08/2020 Result Comment: Critical Result(s) called to Filippo Gaona at 04/08/2020 11:27 by RG. Read back OK. [facility] CHEM PANEL AGAP 9.8 10.0 - 20.0 04/08/2020 [facility] CHEM PANEL Calcium Lvl 9.1 8.5 - 10.5 04/08/2020 [facility] CHEM PANEL eGFR 34 04/08/2020 Result [...] be multiplied by the estimated BMI. [facility] HEMATOLOGY WBC 7.3 3.7 - 10.4 04/08/2020 [facility] HEMATOLOGY RBC 4.74 4.70 - 6.10 04/08/2020 [facility] HEMATOLOGY Hgb 12.8 14.0 - 18.0 04/08/2020 [facility] HEMATOLOGY Hct 41.2 42.0 - 54.0 04/08/2020 [facility] HEMATOLOGY MCV 86.8 80.0 - 94.0 04/08/2020 [facility] HEMATOLOGY MCH 27.0 27.0 - 31.0 04/08/2020 [facility] HEMATOLOGY MCHC 31.1 32.0 - 36.0 04/08/2020 [facility] HEMATOLOGY RDW 20.1 11.5 - 14.5 04/08/2020 [facility] HEMATOLOGY Platelet 156 133 - 450 04/08/2020 [facility] HEMATOLOGY MPV 7.4 7.4 - 10.4 04/08/2020 [facility] HEMATOLOGY Segs 83.0 45.0 - 75.0 04/08/2020 [facility] HEMATOLOGY Lymphocytes 11.0 20.0 - 40.0 04/08/2020 [facility] HEMATOLOGY Monocytes 5.3 2.0 - 12.0 04/08/2020 [facility] HEMATOLOGY Eosinophils 0.3 0.0 - 4.0 04/08/2020 [facility] HEMATOLOGY Basophils 0.4 0.0 - 1.0 04/08/2020 [facility] HEMATOLOGY Neutrophils # 6.1 1.5 - 8.1 04/08/2020 [facility] HEMATOLOGY Lymphocytes # 0.8 1.0 - 5.5 04/08/2020 [facility] HEMATOLOGY Monocytes # 0.4 0.0 - 0.8 04/08/2020 [facility] URINE AND STOOL POC UA Color Yellow *NA* (04/04/20 2:09 PM) Yellow 04/04/2020 [facility] URINE AND STOOL POC UA Turbidity Clear *NA* (04/04/20 2:09 PM) Clear 04/04/2020 [facility] URINE AND STOOL POC UA SG 1.015 <=1.030 04/04/2020 [facility] URINE AND STOOL POC UA pH 6.0 5.0 - 8.0 04/04/2020 [facility] URINE AND STOOL POC UA Prot Negative mg/dL Negative mg/dL 04/04/2020 [facility] URINE AND STOOL POC UA Glu 250 mg/dL Negative mg/dL 04/04/2020 [facility] URINE AND STOOL POC UA Ket Negative mg/dL Negative mg/dL 04/04/2020 [facility] URINE AND STOOL POC UA Bili Negative *NA* (04/04/20 2:09 PM) Negative 04/04/2020 [facility] URINE AND STOOL POC UA Bld Negative *NA* (04/04/20 2:09 PM) Negative 04/04/2020 [facility] URINE AND STOOL POC UA Uro 0.2 0.1 - 1.0 04/04/2020 [facility] URINE AND STOOL POC UA Nit Negative *NA* (04/04/20 2:09 PM) Negative 04/04/2020 [facility] URINE AND STOOL POC UA LeukEst Trace *ABN* (04/04/20 2:09 PM) Negative 04/04/2020 [facility] IMMUNOLOGY Coronavirus (COVID-19) NA A Not Detected (04/04/20 10:15 AM) Not Detected 04/04/2020 [facility] BLOOD BANK RESULTS ABO/Rh O POS 04/03/2020 [facility] BLOOD BANK RESULTS Antibody Scrn Negative (04/03/20 2:17 PM) 04/03/2020 [facility] CHEM PANEL B/C Ratio 41 6 - 25 04/03/2020 [facility] CHEM PANEL Total Protein 6.5 6.4 - 8.4 04/03/2020 [facility] CHEM PANEL Albumin Lvl 3.3 3.5 - 5.0 04/03/2020 [facility] CHEM PANEL Globulin 3.2 2.7 - 4.2 04/03/2020 [facility] CHEM PANEL A/G Ratio 1.0 0.7 - 1.6 04/03/2020 [facility] CHEM PANEL ALT 25 0 - 65 04/03/2020 [facility] CHEM PANEL AST 17 0 - 37 04/03/2020 [facility] CHEM PANEL Alk Phos 105 39 - 136 04/03/2020 [facility] CHEM PANEL Bili Total 0.5 0.2 - 1.3 04/03/2020 [facility] HEMATOLOGY WBC 7.9 3.7 - 10.4 04/03/2020 [facility] HEMATOLOGY RBC 4.91 4.70 - 6.10 04/03/2020 [facility] HEMATOLOGY Hgb 13.5 14.0 - 18.0 04/03/2020 [facility] HEMATOLOGY Hct 42.7 42.0 - 54.0 04/03/2020 [facility] HEMATOLOGY MCV 86.8 80.0 - 94.0 04/03/2020 [facility] HEMATOLOGY MCH 27.4 27.0 - 31.0 04/03/2020 [facility] HEMATOLOGY MCHC 31.6 32.0 - 36.0 04/03/2020 [facility] HEMATOLOGY RDW 19.5 11.5 - 14.5 04/03/2020 [facility] HEMATOLOGY Platelet 184 133 - 450 04/03/2020 [facility] HEMATOLOGY MPV 7.7 7.4 - 10.4 04/03/2020 [facility] HEMATOLOGY R-time 5.0 5.0 - 10.0 04/03/2020 [facility] HEMATOLOGY K-time 1.4 1.0 - 3.0 04/03/2020 [facility] HEMATOLOGY Angle 67.5 53.0 - 72.0 04/03/2020 [facility] HEMATOLOGY Max Amp 65.7 50.0 - 70.0 04/03/2020 [facility] HEMATOLOGY G-value 9.6 4.5 - 11.0 04/03/2020 [facility] HEMATOLOGY Ly30 0.0 0.0 - 7.5 04/03/2020 [facility] HEMATOLOGY Coag Index 1.6 -3.0-3.0 - 3.0 04/03/2020 [facility] [facility] HEMATOLOGY TEG Data See N ote (04/03/20 2:17 PM) 04/03/2020 [facility] HEMATOLOGY TEG Interp Throm belastograph results are within reference ranges. These indicate adequate hemostasis. Note that TEG does not show effect of NSAIDs or P2Y12 inhibitors. CPT:13746 04/03/2020 [facility] HEMATOLOGY Neutrophils # 6.6 1.5 - 8.1 04/03/2020 [facility] HEMATOLOGY Lymphocytes # 0.6 1.0 - 5.5 04/03/2020 [facility] HEMATOLOGY Monocytes # 0.5 0.0 - 0.8 04/03/2020 [facility] HEMATOLOGY Eosinophils # 0.1 0.0 - 0.5 04/03/2020 [facility] HEMATOLOGY Segs 83.0 45.0 - 75.0 04/03/2020 [facility] HEMATOLOGY Bands 0.0 0.0 - 11.0 04/03/2020 [facility] HEMATOLOGY Lymphocytes 8.0 20.0 - 40.0 04/03/2020 [facility] HEMATOLOGY Monocytes 6.0 2.0 - 12.0 04/03/2020 [facility] HEMATOLOGY Eosinophils 1.0 0.0 - 4.0 04/03/2020 [facility] HEMATOLOGY Metamyelocytes 1.0 0.0 - 1.0 04/03/2020 [facility] HEMATOLOGY Myelocytes 1.0 <=0.0 % 04/03/2020 [facility] HEMATOLOGY Atypical Lymphs 0.0 <=0.0 % 04/03/2020 [facility] HEMATOLOGY NRBC 1 04/03/2020 [facility] HEMATOLOGY Plt Morph Kay l (04/03/20 2:17 PM) Normal 04/03/2020 [facility] HEMATOLOGY Anisocyte 1+ *ABN* (04/03/20 2:17 PM) None Seen 04/03/2020 [facility] HEMATOLOGY Polychrom Slight 04/03/2020 [facility] IMMUNOLOGY C-REACTIVE PROTEIN 23.6 <=2.9 mg/L 04/03/2020 [facility] SPECIAL CHEMISTRY Hgb A1C 8.1 <=5.6 % 04/03/2020 [facility] HEMATOLOGY PT 13.6 12.0 - 14.7 11/10/2019 [facility] HEMATOLOGY INR 1.04 0.85 - 1.17 11/10/2019 [facility] HEMATOLOGY PTT 25.1 22.9 - 35.8 11/10/2019 [facility] BLOOD BANK RESULTS ABO/Rh O POS 11/10/2019 [facility] BLOOD BANK RESULTS Antibody Scrn Negative (11/10/19 10:59 AM) 11/10/2019 [facility] BLOOD BANK RESULTS RBC product Product available (11/10/19 10:59 AM) 11/10/2019 [facility] CHEM PANEL Glucose Lvl 168 70 - 99 11/10/2019 [facility] CHEM PANEL BUN 49 7 - 22 11/10/2019 [facility] CHEM PANEL Creatinine Lvl 1.51 0.50 - 1.40 11/10/2019 [facility] CHEM PANEL Sodium Lvl 138 135 - 145 11/10/2019 [facility] CHEM PANEL Potassium Lvl 3.4 3.5 - 5.1 11/10/2019 [facility] CHEM PANEL Chloride Lvl 93 95 - 109 11/10/2019 [facility] CHEM PANEL CO2 36 24 - 32 11/10/2019 [facility] CHEM PANEL Calcium Lvl 8.8 8.5 - 10.5 11/10/2019 [facility] CHEM PANEL AGAP 12.4 10.0 - 20.0 11/10/2019 [facility] CHEM PANEL eGFR 45 11/10/2019 Result [...] be multiplied by the estimated BMI. [facility] CHEM PANEL Magnesium Lvl 2.1 1.8 - 2.4 11/10/2019 [facility] HEMATOLOGY Segs 88.7 45.0 - 75.0 11/10/2019 [facility] HEMATOLOGY Lymphocytes 6.8 20.0 - 40.0 11/10/2019 [facility] HEMATOLOGY Monocytes 4.4 2.0 - 12.0 11/10/2019 [facility] HEMATOLOGY Basophils 0.1 0.0 - 1.0 11/10/2019 [facility] HEMATOLOGY Neutrophils # 9.3 1.5 - 8.1 11/10/2019 [facility] HEMATOLOGY Lymphocytes # 0.7 1.0 - 5.5 11/10/2019 [facility] HEMATOLOGY Monocytes # 0.5 0.0 - 0.8 11/10/2019 [facility] HEMATOLOGY WBC 10.5 3.7 - 10.4 11/10/2019 [facility] HEMATOLOGY RBC 4.95 4.70 - 6.10 11/10/2019 [facility] HEMATOLOGY Hgb 12.4 14.0 - 18.0 11/10/2019 [facility] HEMATOLOGY Hct 39.2 42.0 - 54.0 11/10/2019 [facility] HEMATOLOGY MCV 79.2 80.0 - 94.0 11/10/2019 [facility] HEMATOLOGY MCH 25.1 27.0 - 31.0 11/10/2019 [facility] HEMATOLOGY MCHC 31.7 32.0 - 36.0 11/10/2019 [facility] HEMATOLOGY RDW 19.6 11.5 - 14.5 11/10/2019 [facility] HEMATOLOGY Platelet 213 133 - 450 11/10/2019 [facility] HEMATOLOGY MPV 8.1 7.4 - 10.4 11/10/2019 [facility] CHEM PANEL Glucose Lvl 115 70 - 99 10/17/2019 [facility] CHEM PANEL BUN 51 7 - 22 10/17/2019 [facility] CHEM PANEL Creatinine Lvl 1.65 0.50 - 1.40 10/17/2019 [facility] CHEM PANEL Sodium Lvl 140 135 - 145 10/17/2019 [facility] CHEM PANEL Potassium Lvl 3.8 3.5 - 5.1 10/17/2019 [facility] CHEM PANEL Chloride Lvl 99 95 - 109 10/17/2019 [facility] CHEM PANEL CO2 40 24 - 32 10/17/2019 Result Comment: Critical Result(s) called to Shavon Hawkins at 10/16/2019 18:26 by . Read back OK. [facility] CHEM PANEL AGAP 4.8 10.0 - 20.0 10/17/2019 [facility] CHEM PANEL Calcium Lvl 9.1 8.5 - 10.5 10/17/2019 [facility] CHEM PANEL eGFR 40 10/17/2019 Result [...] be multiplied by the estimated BMI. [facility] HEMATOLOGY Neutrophils # 8.4 1.5 - 8.1 10/17/2019 [facility] HEMATOLOGY Lymphocytes # 1.5 1.0 - 5.5 10/17/2019 [facility] HEMATOLOGY Monocytes # 0.7 0.0 - 0.8 10/17/2019 [facility] HEMATOLOGY Segs 78.0 45.0 - 75.0 10/17/2019 [facility] HEMATOLOGY Bands 1.0 0.0 - 11.0 10/17/2019 [facility] HEMATOLOGY Lymphocytes 14.0 20.0 - 40.0 10/17/2019 [facility] HEMATOLOGY Monocytes 7.0 2.0 - 12.0 10/17/2019 [facility] HEMATOLOGY Atypical Lymphs 0.0 <=0.0 % 10/17/2019 [facility] HEMATOLOGY NRBC 1 10/17/2019 [facility] HEMATOLOGY Anisocyte 1+ *ABN* (10/16/19 6:05 PM) None Seen 10/17/2019 [facility] HEMATOLOGY Microcyte 1+ *ABN* (10/16/19 6:05 PM) None Seen 10/17/2019 [facility] HEMATOLOGY Polychrom Moder ate *ABN* (10/16/19 6:05 PM) None Seen 10/17/2019 [facility] HEMATOLOGY Toxic Gran slight 10/17/2019 [facility] HEMATOLOGY Large Plt slight 10/17/2019 [facility] HEMATOLOGY WBC 10.6 3.7 - 10.4 10/17/2019 [facility] HEMATOLOGY RBC 4.67 4.70 - 6.10 10/17/2019 [facility] HEMATOLOGY Hgb 11.5 14.0 - 18.0 10/17/2019 [facility] HEMATOLOGY Hct 36.7 42.0 - 54.0 10/17/2019 [facility] HEMATOLOGY MCV 78.6 80.0 - 94.0 10/17/2019 [facility] HEMATOLOGY MCH 24.5 27.0 - 31.0 10/17/2019 [facility] HEMATOLOGY MCHC 31.2 32.0 - 36.0 10/17/2019 [facility] HEMATOLOGY RDW 18.7 11.5 - 14.5 10/17/2019 [facility] HEMATOLOGY Platelet 191 133 - 450 10/17/2019 [facility] HEMATOLOGY MPV 7.7 7.4 - 10.4 10/17/2019 [facility] HEMATOLOGY PTT 26.9 22.9 - 35.8 10/17/2019 [facility] HEMATOLOGY PT 15.1 12.0 - 14.7 10/17/2019 [facility] HEMATOLOGY INR 1.18 0.85 - 1.17 10/17/2019 [facility] URINE AND STOOL POC UA Bld Trace *NA* (05/18/19 12:35 PM) Negative 05/18/2019 [facility] URINE AND STOOL POC UA Bili Negative *NA* (05/18/19 12:35 PM) Negative 05/18/2019 [facility] URINE AND STOOL POC UA Ket Negative mg/dL Negative mg/dL 05/18/2019 [facility] URINE AND STOOL POC UA Uro 0.2 0.1 - 1.0 05/18/2019 [facility] URINE AND STOOL POC UA Nit Positive *ABN* (05/18/19 12:35 PM) Negative 05/18/2019 [facility] URINE AND STOOL POC UA LeukEst Small *ABN* (05/18/19 12:35 PM) Negative 05/18/2019 [facility] URINE AND STOOL POC UA Color Yellow *NA* (05/18/19 12:35 PM) Yellow 05/18/2019 [facility] URINE AND STOOL POC UA Turbidity Clear *NA* (05/18/19 12:35 PM) Clear 05/18/2019 [facility] URINE AND STOOL POC UA SG 1.015 <=1.030 05/18/2019 [facility] URINE AND STOOL POC UA Glu Negative mg/dL Negative mg/dL 05/18/2019 [facility] URINE AND STOOL POC UA pH 6.5 5.0 - 8.0 05/18/2019 [facility] URINE AND STOOL POC UA Prot Negative mg/dL Negative mg/dL 05/18/2019 [facility] CHEM PANEL eGFR 55 06/24/2016 Result [...] should be multiplied by the estimated BMI. [facility] CHEM PANEL POC Creatinine 1.3 0.5 - 1.4 06/24/2016 [facility] CHEM PANEL eGFR 55 04/10/2016 [...] should be multiplied by the estimated BMI. [facility] CHEM PANEL POC Creatinine 1.3 0.5 - 1.4 04/10/2016 [facility] Pathology Reports No Data Provided [...] 2017 Jeremi Combs MD On 04/17/2020 09:38:05; [id number] 04/16/2020 [facility] Spine Thoracic wo contrast MRI Findings of prominent epidural fat from T4-T9 with mild compression of the thoracic spinal cord from T4-T8 discussed with Dr. Salmon via telephone on 04/16/2020 at 12:10 a.m. central time. Momo Bangura MD On 04/16/2020 00:12:09; [id number] PROCEDURE INFORMATION: Exam: MR Thoracic Spine Without [...] stenosis. Momo Bangura MD On 04/16/2020 00:02:15; [id number] 04/15/2020 [facility] Spine lumbar wo contrast MRI [...] L5-S1. Skylar Rodas MD On 04/15/2020 23:48:44; [id number] 04/15/2020 [facility] Abdomen AP DX PROCEDURE INFORM [...] pelvis. Garry Lira MD On 04/14/2020 16:07:32; [id number] 04/14/2020 [facility] Retroperitoneal Complete US WI OCEDURE [...] imaging. Jose Rojo DO On 04/13/2020 17:11:56; [id number] 04/13/2020 [facility] 1view DX PROCEDURE INFOR MATION: Exam: XR [...] Steward MD On 04/13/2020 10:40:11; [id number] 04/13/2020 [facility] 1 v for Placement DX EXA M: [...] deformities in the left hemithorax. 04/11/2020 [facility] Chest 2 views DX EXAM: XR [...] Mild bibasilar subsegmental atelecta sis. 04/03/2020 [facility] Spine Thoracic wo contrast MRI PROCEDURE [...] exam. Nate Baig MD On 02/03/2020 10:12:14; [id number] 02/02/2020 [facility] Spine lumbar wo contrast MRI [...] study. Nate Baig MD On 02/03/2020 09:39:50; [id number] 02/02/2020 [facility] Bone Density DXA [employer] MA MALE BONE DENSITY ASSESSMENT: 07/23/2019 CLINICAL DATA: Clinical risk for osteoporosis. Z79.899 Other Custodial (Current) Drug Therapy, M45.9 Ankylosing Spondylitis Of Unspecified Sites In Spine/Z79.899 Other Food Safety Technician (Current) Drug Therapy, M45.9 Ankylosing Spondylitis Of [...] is recommended. This exam was interpreted at [id number] for JOVI Pyle, ELIZABETH 15. 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 SL: [id number] 12/04/2017 [facility] Spine cervical wo contrast MRI [...] foraminal narrowing, left greater than right. SL: [id number] 12/04/2017 [facility] pelvis and [...] nerve sheath tumor, or epidermoid cyst. SL: [id number] 06/24/2016 [facility] Spine lumbar w/wo contrast MRI Patient Name: STEVE BENEDICT : 1945; Age: 70 years y/o Male MR: [id number] Study: Spine lumbar w/wo contrast MRI 06/24/2016 [...] compatible with acute on chronic denervation. SL: [id number] 06/24/2016 [facility] Spine thoracic wo contrast CT [...] No acute abnormalities are visualized . SL:06/19/2016 [facility] lumbar wo contrast CT CT [...] No acute abnormalities are visualized . SL:06/19/2016 [facility] cervical 2 or 3 view [...] 2. No acute fracture or malalignment. 04/23/2016 [facility] Spine Thoracic w/wo contrast MRI MRI THORACIC [...] multip le bilateral renal cysts. SL:16 04/10/2016 [facility] Spine lumbar w/wo contrast MRI [...] smoking and anemia among other etiologies. SL: [id number] 03/28/2016 [facility] Consultation Notes No Data Provided for This Section Discharge Summaries No Data Provided for This Section History and Physicals No Data Provided for This Section Vital Signs Vital Sign Value Date Comments Source Temperature Oral (F) 98 F 04/20/2020 [facility] Heart Rate 93 04/20/2020 [facility] Respitory Rate 18 04/20/2020 [facility] Systolic (mm Hg) 120 04/20/2020 [facility] Diastolic (mm Hg) 79 04/20/2020 [facility] Temperature Oral (F) 97.9 F 04/20/2020 [facility] Heart Rate 96 04/20/2020 [facility] Systolic (mm Hg) 135 04/20/2020 [facility] Diastolic (mm Hg) 90 04/20/2020 [facility] Respitory Rate 18 04/20/2020 [facility] Temperature Oral (F) 98.0 F 04/20/2020 [facility] Heart Rate 80 04/20/2020 [facility] Systolic (mm Hg) 135 04/20/2020 [facility] Diastolic (mm Hg) 89 04/20/2020 [facility] Respitory Rate 18 04/20/2020 [facility] Height 175.26 cm 04/14/2020 [facility] Weight 107.004 04/14/2020 [facility] BMI Calculated 34.84 04/14/2020 [facility] Height 175.26 cm 04/13/2020 [facility] BMI Calculated 32.26 04/13/2020 [facility] Weight 99.091 04/13/2020 [facility] Temperature Oral (F) 97.9 F 04/13/2020 [facility] Heart Rate 64 04/13/2020 [facility] Respitory Rate 16 04/13/2020 [facility] Systolic (mm Hg) 105 04/13/2020 [facility] Diastolic (mm Hg) 60 04/13/2020 [facility] Systolic (mm Hg) 97 04/12/2020 [facility] Diastolic (mm Hg) 63 04/12/2020 [facility] Temperature Oral (F) 97.0 F 04/12/2020 [facility] Heart Rate 68 04/12/2020 [facility] Respitory Rate 20 04/12/2020 [facility] Systolic (mm Hg) 95 04/12/2020 [facility] Diastolic (mm Hg) 53 04/12/2020 [facility] Temperature Oral (F) 98.1 F 04/12/2020 [facility] Heart Rate 89 04/12/2020 [facility] Respitory Rate 20 04/12/2020 [facility] Height 175.26 cm 04/07/2020 [facility] Weight 99.091 04/07/2020 [facility] BMI Calculated 32.26 04/07/2020 [facility] Height 175.26 cm 04/07/2020 [facility] Weight 99.2 04/07/2020 [facility] Height 175.26 cm 04/07/2020 [facility] Weight 99.2 04/07/2020 [facility] BMI Calculated 32.3 04/07/2020 [facility] Height 175.26 cm 04/04/2020 [facility] Weight 98.324 04/04/2020 [facility] BMI Calculated 32.01 04/04/2020 [facility] BMI Calculated 31.97 04/03/2020 [facility] Respitory Rate 15 11/11/2019 [facility] Systolic (mm Hg) 110 11/11/2019 [facility] Diastolic (mm Hg) 70 11/11/2019 [facility] Respitory Rate 19 11/11/2019 [facility] Systolic (mm Hg) 146 11/11/2019 [facility] Diastolic (mm Hg) 86 11/11/2019 [facility] Respitory Rate 23 11/11/2019 [facility] Systolic (mm Hg) 113 11/11/2019 [facility] Diastolic (mm Hg) 68 11/11/2019 [facility] Temperature Oral (F) 97.6 F 11/10/2019 [facility] Height 175.26 cm 11/10/2019 [facility] Weight 94.091 11/10/2019 [facility] BMI Calculated 30.63 11/10/2019 [facility] Respitory Rate 18 10/17/2019 [facility] Systolic (mm Hg) 135 10/17/2019 [facility] Diastolic (mm Hg) 72 10/17/2019 [facility] Systolic (mm Hg) 129 10/17/2019 [facility] Diastolic (mm Hg) 75 10/17/2019 [facility] Respitory Rate 18 10/17/2019 [facility] Temperature Oral (F) 98.4 F 10/17/2019 [facility] Systolic (mm Hg) 150 10/17/2019 [facility] Diastolic (mm Hg) 89 10/17/2019 [facility] Respitory Rate 18 10/17/2019 [facility] Temperature Oral (F) 98.0 F 10/17/2019 [facility] Heart Rate 95 10/16/2019 [facility] Temperature Oral (F) 98.4 F 10/16/2019 [facility] Height 175.26 cm 06/02/2019 [facility] [...] Provider ADM Date DC Date Status Source [facility] Outpatient [facility] [place] [facility] [id number] Monique Reed 03/06/2016 03/07/2016 [facility] Outpatient [id number] Christopher Summers 03/28/2016 03/29/2016 [facility] [place] [facility] [id number] Angel Martínez 04/02/2016 04/03/2016 [facility] Outpatient [id number] Elida Valenzuela 04/10/2016 04/11/2016 [facility] Outpatient Imaging [facility] [place] Out[facility] Diag Services [id number] Monique Reed 04/23/2016 04/24/2016 [facility] Outpatient [id number] NEIL DANIEL 06/06/2016 [facility]patient [id number] Neil Daniel Jr 06/19/2016 06/20/2016 [facility] Outpatient [id number] Neil Daniel Jr 06/24/2016 06/25/2016 [facility] Outpatient [id number] NEIL PHILLIPSMITT 07/11/2016 Active [facility] Outpatient Imaging - [place] [facility] Di[facility] [id number] Mila Jones 04/23/2017 04/24/2017 [facility] [place] [facility] Outpatient [id number] Oleksandr Uriarteanali 12/05/2017 12/05/2017 [facility] Urology [facility] [employer] [place] Phone Message [id number] 11/04/1911/06/2018 [facility] Outpatient [id number] CARLA REYNAGA 11/30/2018 Active [facility]rology [facility] Outpatient [id number] Carla Reynaga 11/30/2018 12/01/2018 [facility] Outpatient [id number] URODYNAMICS 12/16/2018 Active [facility] Outpatient [id number] CARLA REYNAGA 12/22/2018 Active [facility] Outpatient [facility] [place] Out[facility] Di[facility] Services [id number] Mila Jones 12/28/2018 12/29/2018 [facility] [place] Outpatient [id number] Carla Reynaga 02/02/2019 Active [facility] Outpatient [id number] Carla Reynaga 04/19/2019 Active [facility] Outpatient [id number] Carla Reynaga 04/19/2019 04/20/2019 [facility] Outpatient [id number] NURSE VISIT 04/21/2019 Active [facility] Ambulatory Pre-Reg [id number] Christopher Summers 04/21/2019 04/21/2019 [facility] Outpatient [id number] Carla Reynaga 05/04/2019 [facility] [id number] Christopher Summers 05/04/2019 05/04/2019 [facility] Urology [facility] Ambulatory Pre-Reg [id number] Carla Reynaga 05/04/2019 05/04/2019 [facility] Outpatient [id number] - URODYNAMICS, 05/18/2019 Active [facility] [place] Outpatient [id number] Christopher Summers 05/18/2019 05/19/2019 [facility] Urology [facility] Ambulatory Pre-Reg [id number] Carla Reynaga 05/25/2019 05/25/2019 [facility] Outpatient [id number] MED_ASST VISIT 05/27/2019 Active [facility] [place] Outpatient [id number] Christopher Summers 05/27/2019 05/28/2019 [facility] Outpatient [id number] - URODYNAMICS, 06/01/2019 Active [facility] [place] Outpatient [id number] Christopher Summers 06/01/2019 06/02/2019 [facility] Outpatient [id number] Carla Reynaga 06/02/2019 Active [facility] [place] Outpatient [id number] Carla Reynaga 06/02/2019 06/03/2019 [facility] Outpatient [id number] - URODYNAMICS, 06/08/2019 Active [facility] Outpatient [id number] Carla Reynaga 06/14/2019 Active [facility] Outpatient Imaging - [place] Out[facility] Diag Services [id number] Mila Jones 07/23/2019 07/24/[facility] Emergency [id number] Lucas Reanna 10/16/2019 10/17/2019 [facility] Inpatient [id number] Sheila Vásquez 11/10/2019 11/11/2019 [facility] Outpatient [id number] Morales Tolbert 02/02/2020 02/03/2020 [facility] Outpatient [id number] Carla Reynaga 02/03/2020 Active [facility] Outpatient [id number] Carla Reynaga 03/13/2020 Active [facility] Ambulatory Pre-Reg [id number] Carla Reynaga 03/13/2020 03/13/2020 [facility] Outpatient [id number] Carla Reynaga 04/04/2020 [facility] [place] [facility] [id number] [facility]04[facility] 04/05/2020 [facility] Inpatient [id number] Morales Tolbert 04/07/2020 04/13/2020 [facility] Inpatient [id number] Abdulaziz Tobin 04/13/2020 04/20/2020 [facility] Outpatient [id number] Carla [facility] 07/04/2020 [facility] [place] Ambulatory Pre-Reg [id number] [facility] 07/04/2020 07/04/2020 [facility] Procedures Procedure Code Date Perfomer Comments Source Measurement of post-voiding residual uri ne and/or bladder capacity by ultrasound, non-imaging [id number] 04/04/2020 [facility] cystometrogram (ie, calibrated e [employer] equipment); with voiding pressure studies (ie, bladder voiding pressure), any technique 52548 06/02/2019 [facility] Voiding pressure studies, intra-abdomina l (ie, rectal, gastric, intraperitoneal) (List separately in addition to code for primary procedure) 73306 06/02/2019 [facility] uroflowmetry (eg, calibrated cecilia ctronic equipment) 15324 06/02/2019 [facility] Electromyography studies (EMG) of anal o r urethral sphincter, other than needle, any technique 76037 06/02/2019 [facility] Cystoscopy [id number] 08/25/2018 [facility], [facility] [place] Complex uroflowmetry [id number] 03/30/2018 [facility] , [facility] [place] Catheter replacement [id number] [facility] [place] Fusion<sup>1</sup> [id number] cervical fusion done on 09/11/[address] Nilo Adames [facility], [facility] [place] Prostate manipulation [id number] [facility] [facility], [facility] Stent replacement [id number] [facility], [facility] Ablation [id number] [facility] Cataract surgery [id number] [facility] Colonoscopy [id number] [facility] Operation [id number] [facility] PCI - Percutaneous coronary intervention [id number] [facility] ,[facility] Assessment and Plan Assessment and [...] adjustments at this time. He may continue Lagrange 5/325mg q6h as needed. He is pending thoracic laminectomy once left elbow infection is cleared. We will continue to monitor pulmonary status. We will continue to follow and make adjustments as needed. We have provided a discharge prescription to the patient's pharmacy for Lagrange 5/325mg #10. Please call with any questions [...] 0.9% IV 100 mL 1 gm IVPB [id number] 200 ml/hr 04/19/20 cholecalciferol (Vitamin D3) 20 ,000 IntlUnit PO QPM 04/20/20 clopidogrel (Plavix) 75 mg PO D aily 04/13/20 enoxaparin 40 mg SUB-Q [id number] 04/19/20 folic acid 0.4 mg PO BID [...] 9% IV 250 mL 1,000 mg IVPB [id number] 250 ml/hr 04/14/20 vitamin A and D [...] 24) H 37 (SOL 23) H 37 (SLO 22) Cl 97 (SOL 25) 100 (SOL 24) 98 (SOL 23) 98 (SOL 22) Cr H 1.56 (SOL 25) H 1.50 (SOL 24) H 1.60 (SOL 23) H 1.61 (SOL 22) BUN H 39 (SOL 25) H 36 (SOL 24) H 41 (SOL 23) H 45 (SOL 22) Glucose Random H 103 (SLO 25) 83 (SOL 24) 77 (SOL 23) [...] 10/2019 with EF 45-50% - 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 Dr Mcguire - home med: bumex 3 [...] while sleeping lovenox > 2 MNs 04/20/2020 [facility] Extracted from:Title: Infection Admissio n H&P * Author: Adan Nielsen MD Date: 04/12/20 Impression and Plan Open wound left elbow closed by Plastic Surgery Discussed plans with patient and all questions answered Vanco trough is therapeutic Vancomycin 1250 mg q24 h Rx for 14 days Monitor blood work Vanco trough ,CBC ,BMP ,UA weekly ,fax report to my office [phone] Call [phone] for an apt in 2 weeks Extracted from:Title: Infection Admission H&P * Author: Adan Nielsen MD Date: 04/07/20 Impression and Plan Open wound left elbow closed by Plastic Surgery No cultures To discuss antibiotic Rx regarding need and duration 04/13/2020 [facility] Extracted from:Title: EP Discharge Summa ry Author: Sheila Vásquez MD Date: 11/11/19 Discharge Plan Discharge Summary Plan Discharge Status: stable. Discharge instructions given: to patient. Discharge disposition: discharge to home. Prescriptions: continue same medications. Diagnosis Presence of Watchman left atrial appendage closure device (TPR11-TL Z95.818, Working, Medical). Presence of Watchman left atrial appendage closure device (FQJ44-GN Z95.818, Working, Medical). 11/11/2019 [facility] Extracted from:Title: Burn Surgery Consu lt [...] Nilo Trejo MD PGY1 Urology/General Surgery MSO #[id number] [place] Phone x [phone] (Spect); Page [phone] 10/17/2019 [facility] Plan of Care No Data Provided [...] entered on: 04/14/20 1Quit smoking 201104/03/2020 [facility] Social History TypeResponse Alcohol Never Substance Abuse Use: None. Smoking Status Former smoker; Ready to change: No; Concerns about tobacco use in household: No; Exposure to Tobacco Smoke None; Cigarette Smoking Last 365 Days No; Reg Smoking Cessation Counseling No; Other Tobacco Frequency QUIT SMOKING entered on: 04/14/20 1Quit smoking 201104/03/2020 [facility] Social History TypeResponse Alcohol Never Substance Abuse Use: None. Smoking Status Former smoker; Ready to change: No; Concerns about tobacco use in household: No; Exposure to Tobacco Smoke None; Cigarette Smoking Last 365 Days No; Reg Smoking Cessation Counseling No; Other Tobacco Frequency QUIT SMOKING entered on: 04/14/20 1Quit smoking 201104/03/2020 [facility] Social History TypeResponse Smoking Status Former [...]
--- OUTSIDE RECORDS SUMMARY | 2020-07-30 19:38 | XMS REPORT | Continuity of Care Document ---
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 [facility] Vancomycin 2020-04-13 19:00:00 No 1 ea, Route: MISC, ONCALL, Dosing Weight 99.091, kg, Start date: 04/13/20 14:00:00 CDT, Duration: 14 day, Stop date: 04/27/20 13:59:00 CDT, Pharmacy to dose, ABX Indication: Skin/Soft Tissue Infection [facility] Saline Flush 0.9% 2020-04-13 18:43:00 No Notes: Same as: BD Posiflush Sterile [facility] vancomycin pharmacy dosing (ALISON) 2020-04-13 18:24:00 No vancomycin pharmacy dosing (ALISON), reminder, Drug form: MISC, Route: MISC, Daily, PRN, 04/13/20 13:24:00 CDT, Stop date: 04/19/20 13:23:00 CDT, pharmAcy, 0 [facility] Vivek Insulin Lispro 2020-04-13 18:10:00 No Notes: (Same as: Humalog) Roll in palms of hands gently; Do not shake vigorously. WASTE: F/P - Black; E - Municipal Trash Bin Stable for 28 days at room temperature. Expires in days from Date [facility] robert Dextrose 50% Syringe (D50W) 2020-04-13 18:03:00 No 12.5 gm, 25 mL, Route: IVP, Drug Form: INJ, Dosing Weight 99.091, kg, PRN, PRN Blood Glucose Results, Start date: 04/13/20 13:03:00 CDT, Duration: 30 day, Stop date: 05/13/20 13:02:00 CDT, 0 [facility] Kranthi n Glucagon 2020-04-13 18:03:00 No 1 mg, Route: IM, Drug form: PDR/INJ, PRN, Dosing Weight 99.091, kg, PRN Blood Glucose Results, Start date: 04/13/20 13:03:00 CDT, Duration: 30 day, Stop date: 05/13/20 13:02:00 CDT, 0 [facility] Acetaminophen 2020-04-13 18:03:00 No Notes: Do not exceed 4 gm/day. (Same as: Tylenol) [facility] Lasix 2020-04-13 15:27:00 No Notes: (Same as: Lasix) MEDICATION WASTE Product Size: 40 mg Product Wasted: ___ mg [facility] cefepime 2020-04-13 15:12:00 No Notes: (Same As: Maxipime) MEDICATION WASTE Product Size: 1000 mg Product Wasted: ___ mg [facility] Vancomycin 2020-04-13 15:12:00 No 2001 mg: infuse over 2.5 hours For adult patients only: Round to nearest 250 mg per Medical Staff approval MEDICATION WASTE Product Size: 1000 mg Product Wasted: ___ mg [facility] Saline Flush 0.9% 2020-04-13 15:07:00 No Notes: Same as: BD Posiflush Sterile Geoff Vivek Testosterone 2020-04-12 14:00:00 No 200 mg, 1 mL, Route: IM, Drug form: INJ, Q14D, Dosing Weight 99.2, kg, Start date: 04/12/20 9:00:00 CDT, Duration: 30 day, Stop date: 05/10/20 9:00:00 CDT, 0 [facility] [place] Docusate Sodium 100 MG Oral Capsule 2020-04-12 11:39:00 Yes 100 mg = 1 cap, PO, BID, PRN Constipation, # 20 cap, 0 Refill(s) Geoff Doyle senna oral tablet 2020-04-12 11:39:00 Yes 2 tab, PO, Bedtime, PRN for constipation, X 30 day, # 60 tab, 0 Refill(s) [facility] Saline Flush 0.9% 2020-04-09 21:00:00 No Notes: (Same as: BD Posiflush) [facility] Lidocaine Hydrochloride 10 MG/ML Injectable Solution 04-09 15:00:00 No Notes: (Same as: Xylocaine) [facility] Saline Flush 0.9% 2020-04-09 14:51:00 No Notes: (Same as: BD Posiflush) [facility] [place] vancomycin + Sodium Chloride 0.9% IV 250 mL 2020-04-09 01:00:00 No 2001 mg: infuse over 2.5 hours For adult patients only: Round to nearest 250 mg per Medical Staff approval MEDICATION WASTE Product Size: 1000 mg Product Wasted: 0 mg [facility] sennosides, ASSISTED 2020-04-08 22:00:00 No Notes: (Same as: Senokot) [facility] Potassium Chloride 1.33 MEQ/ML Oral Solution 2020-04-08 21:22:00 No Notes: (Same as: Potassium Chloride) [facility]rial Vivek Miralax 2020-04-08 19:47:00 No Notes: Dissolve in 8 oz of water or juice. (Same as: Miralax) [facility] Shanelle nn docusate sodium 2020-04-08 19:13:00 No Notes: (Same as: Colace) (Do Not Crush) [facility] Potassium Chloride 2020-04-08 17:00:00 No Notes: (Same as: KCL) Infuse over 2 hours. [facility] Potassium Chloride 2020-04-08 16:27:00 No Notes: (Same as: Potassium Chloride) [facility] Vivek Lovenox 2020-04-08 14:00:00 No Notes: (Same as: Lovenox) [facility] Vivek Potassium Chloride 1.33 MEQ/ML Oral Solution 2020-04-08 14:00:00 No 20 mEq, 1 tab, Route: PO, Drug form: ERTAB, Daily, Dosing Weight 99.2, kg, Start date: 04/08/20 9:00:00 CDT, Duration: 30 day, Stop date: 05/07/20 9:00:00 CDT, 0 [facility] Budesonide 0.25 MG/ML Inhalant Solution 2020-04-08 13:00:00 No Notes: (Same As: Pulmicort) [facility] cui ropinirole 2020-04-08 13:00:00 No Notes: (S abelardo as: Requip) [facility] Thyroxine 2020-04-08 11:00:00 No 100 microgram, 1 tab, Route: PO, Drug form: TAB, Q6AM, Dosing Weight 99.2, kg, Start date: 04/08/20 6:00:00 CDT, Duration: 30 day, Stop date: 05/07/20 6:00:00 CDT, 0 [facility] Triiodothyronine 2020-04-08 11:00:00 No Notes: (Same as: Cytomel) [facility] Baclofen 2020-04-08 02:00:00 No Notes: (Manfred e As: Lioresal) [facility] 24 HR Metoprolol Tartrate 25 MG Extended Release Tablet [Top rol] 2020-04-08 02:00:00 No 12.5 mg, 0 .5 tab, Route: PO, Drug form: TAB, QAM and Bedtime, Start date: 04/07/20 21:00:00 CDT, Duration: 30 day, Stop date: 05/07/20 9:00:00 CDT, 0 [facility] latanoprost 2020-04-08 02:00:00 No 1 drp, Route: BOTH EYES, Bedtime, Drug form: SOLN, Start date: 04/07/20 21:00:00 CDT, Duration: 30 day, Stop date: 05/06/20 21:00:00 CDT, 0 Geoff Doyle Albuterol 0.83 MG/ML Inhalant Solution 2020-04-08 01:00:00 No Notes: SEE RT DOCUMENTATION (Same as: Proventil) Geoff Doyle Allopurinol 2020-04-07 22:00:00 No 50 mg, 0.5 tab, Route: PO, Drug form: TAB, QPM, Dosing Weight 99.2, kg, Start date: 04/07/20 17:00:00 CDT, Duration: 30 day, Stop date: 05/06/20 17:00:00 CDT, 0 [facility] Vivek Bumetanide 2020-04-07 22:00:00 No Notes: (S abelardo As: Bumex) [facility] Cetirizine 2020-04-07 22:00:00 No Notes: (S abelardo As: Zyrtec) [facility] Folic Acid 2020-04-07 22:00:00 No 400 microgram, 1 tab, Route: PO, Drug form: TAB, QAM & PM, Dosing Weight 99.2, kg, Start date: 04/07/20 17:00:00 CDT, Duration: 30 day, Stop date: 05/07/20 8:30:00 CDT, 0 [facility] gabapentin 300 MG Oral Capsule 2020-04-07 22:00:00 No Notes: (Same as: Neurontin) [facility] methenamine hippurate 2020-04-07 22:00:00 No 25 gm, Route: PO, QAM & PM, Dosing Weight 99.2, kg, Start date: 04/07/20 17:00:00 CDT, Duration: 30 day, Stop date: 05/07/20 8:30:00 CDT, ABX Indication: Skin/Soft Tissue Infection [facility] Pramipexole 2020-04-07 22:00:00 No Notes: ( Same as: Mirapex) [facility] Sertraline 2020-04-07 22:00:00 No Notes: (S abelardo as: Zoloft) [facility] tamsulosin 2020-04-07 22:00:00 No Notes: (Same As: Flomax) "Do Not Crush" [facility] Cefazolin 2020-04-07 21:00:00 No Notes: (Same As: Nelia Eidl) MEDICATION WASTE Product Size: 1000 mg Product Wasted: _0__ mg Geoff Doyle Dextrose 50% Syringe (D50W) 2020-04-07 20:48:00 No 12.5 gm, 25 mL, Route: IVP, Drug Form: INJ, Dosing Weight 99.091, kg, PRN, PRN Blood Glucose Results, Start date: 04/07/20 15:48:00 CDT, Duration: 30 day, Stop date: 05/07/20 15:47:00 CDT, 0 Geoff Silveran n Glucagon 2020-04-07 20:48:00 No 1 mg, [...] Doyle Sodium Chloride 1.2 MEQ/ML Inhalant Solution [Hyper-Candy] 2020-04-07 18:43:00 Yes PRN, 0 Refill(s) Geoff [...] 0.5 tab, PO, BID, 0 Refill(s) Giseleor ial Vivek Pramipexole dihydrochloride 0.25 MG Oral Tablet [...] room temperature Expires in days from Date Geoff Doyle sugammadex (ANES) 2020-04-07 15:24:00 No Route: IV, Drug form: SOLN, ONCE, Stop date: 04/07/20 10:24:00 CDT Geoff Doyle norepinephrine (ANES) 2020-04-07 15:18:00 No Route: IV, Drug form: INJ, ONCE, Stop date: 04/07/20 10:18:00 T Geoff Doyle sugammadex 2020-04-07 14:54:00 No Notes: (S abelardo as: Bridion) Geoff Doyle albuterol (ANES) 2020-04-07 14:48:00 No Route: INHALATION, Drug form: AERO/A, ONCE, Stop date: 04/07/20 9:48:00 CDT [facility] ceFAZolin ([facility] 2020-04-07 14:38:00 No Route: IV, Drug form: INJ, ONCE, Stop date: 04/07/20 9:38:[address] Doyle fentaNYL ([facility]) 2020-04-07 14:33:00 No Route: IV, Drug form: INJ, ONCE, Stop date: 04/07/20 9:33:00 CDT [facility] esmolol ([facility]) 2020-04-07 14:33:00 No Route: IV, Drug form: INJ, ONCE, Stop date: 04/07/20 9:33:00 CDT [facility] Hydralazine 2020-04-07 14:31:00 No Notes: (Same as: Apresoline) Push over 5 minutes [facility] esmolol 2020-04-07 14:31:00 No Notes: (Same as: Brevibloc) [facility] Labetalol 2020-04-07 14:31:00 No 10 mg, 2 mL, Route: IVP, Drug form: INJ, Q5Min, Dosing Weight 99.2, kg, PRN Elevated BP, Start date: 04/07/20 9:31:00 CDT, Duration: 5 doses or times, Stop date: 04/08/20 0:00:00 CDT, 0 [facility] Acetaminophen 2020-04-07 14:31:00 No Notes: Max acetaminophen 4000 mg/day (4 gm/day). (Same as: Tylenol Extra Strength) [facility] Oxycodone Hydrochloride 5 MG Oral Tablet 2020-04-07 14:31:00 No Notes: (Same as: Roxicodone) [facility] Hydromorphone 2020-04-07 14:31:00 No Notes: Same as Dilaudid [facility] Flumazenil 2020-04-07 14:31:00 No Notes: (S abelardo as: Romazicon) [facility] Naloxone 2020-04-07 14:31:00 No Notes: Same as Narcan [facility] Ondansetron 2020-04-07 14:31:00 No Notes: (Same as: Zofran) MEDICATION WASTE Product Size: 4 mg Product Wasted: ___ mg [facility] lidocaine ([facility]) 2020-04-07 14:28:00 No Route: IV, Drug form: INJ, ONCE, Stop date: 04/07/20 9:28:00 CDT [facility] Vivek propofol ([facility]) 2020-04-07 14:28:00 No Route: IV, Drug form: INJ, ONCE, Stop date: 04/07/20 9:28:00 [facility] ([facility] 2020-04-07 14:28:00 No Route: IV, Drug form: INJ, ONCE, Stop date: 04/07/20 9:28:00 CDT [facility] Vivek phenylephrine ([facility]) 2020-04-07 14:12:00 No Route: IV, Drug form: INJ, ONCE, Stop date: 04/07/20 9:12:00 CDT [facility] sugammadex 2020-04-07 14:06:00 No Notes: (S abelardo as: Bridion) [facility] Saline Flush 0.9% 2020-04-07 14:00:00 No Notes: Same as: BD Posiflush Sterile [facility] Clobetasol Propionate 0.0005 MG/MG Topical Ointment 04-07 14:00:00 No Notes: (clobetasol propionat e 0.05% 15 gm top OIN) (Same As: Temovate) [facility] Vitamin D3 2020-04-07 14:00:00 No Notes: Sa me as : Vitamin D3 [facility] 24 HR mirabegron 50 MG Extended Release Tablet [Myrbetriq] 2020-04-07 14:00:00 No Notes: (Same as: Myrbetriq ER) Non-Formulary [facility] Dulcolax Laxative 2020-04-07 13:51:00 No Notes: (Same As: Dulcolax, Bisco-Lax) [facility] Clonazepam 2020-04-07 13:51:00 No 0.5 mg, 1 tab, Route: PO, Drug form: TAB, BID, Dosing Weight 99.2, kg, PRN Anxiety, Start date: 04/07/20 8:51:00 CDT, Duration: 30 day, Stop date: 05/07/20 8:50:00 CDT, 0 [facility] Metolazone 5 MG Oral Tablet 2020-04-07 13:51:00 No Notes: (Same as: Zaroxolyn) [facility] Acetaminophen 2020-04-07 13:11:00 No Notes: Do not exceed 4 gm/day. (Same as: Tylenol) [facility] Acetaminophen 325 MG / Hydrocodone Bitartrate 10 MG Oral Tab let 2020-04-07 13:11:00 No Notes: Do not exceed 4gm/day of acetaminophen. (Same as: Delcambre 325/10) [facility] Hydromorphone 2020-04-07 13:11:00 No Notes: Same as Dilaudid [facility] Ondansetron 2020-04-07 13:11:00 No Notes: (Same as: Zofran) MEDICATION WASTE Product Size: 4 mg Product Wasted: ___ mg [facility] Saline Flush 0.9% 2020-04-07 13:11:00 No Notes: Same as: BD Posiflush Sterile [facility] Methadone 2020-04-07 12:42:00 No Notes: (Sa me as: Dolophine) [facility] Lactated Ringers Injection IV (ANES) 1000 mL 2020-04-07 12:34:00 No Route: IV, Total Volume: 1,000, Start date: 04/07/20 7:34:00 CDT, Stop date: 04/07/20 8:34:00 CDT [facility] cyanocobalamin, vitamin B-12, (VITAMIN B-12) 5,000 mcg Subl 2020-04-07 00:00:00 Yes 2{tbl} Q7D Take 2 tablets by mouth once a week. [facility] testosterone cypionate 200 mg/mL Kit 2020-04-07 00:00:00 Ye s 1mL Inject 1 mL intramuscularly once every 2 weeks. [facility] tamsulosin (FLOMAX) 0.4 mg Cap 24 hr capsule 2020-04-07 00:00:00 Yes .4mg QD Take 0.4 mg by mouth daily. [facility] predniSONE (DELTASONE) 20 MG tablet 2020-04-07 00:00:00 Yes 20mg QD Take 20 mg by mouth every morning. [facility] pramipexole (MIRAPEX) 0.25 MG tablet 2020-04-07 00:00:00 Ye s 1{tbl} QD Take 1 tablet by mouth nightly. [facility] potassium chloride 20 mEq TbER 2020-04-07 00:00:00 Yes 20meq [id number] Take 20 mEq by mouth 3 (three) times daily. [facility] liothyronine (CYTOMEL) 5 MCG tablet 2020-04-07 00:00:00 Yes 5ug QD Take 5 mcg by mouth daily. [facility] gabapentin (NEURONTIN) 300 MG capsule 2020-04-07 00:00:00 Y es 300mg QD Take 300 mg by mouth daily. [facility] vitamin B complex-folic acid (B COMPLEX 1, WITH FOLIC ACID,) 0.4 mg Tab 2020-04-07 00:00:00 Yes .4mg QD Take 0.4 mg by lea th daily. [facility] clonazePAM (KLONOPIN) 0.5 MG tablet 2020-04-07 00:00:00 Yes .5mg Take 0.5 mg by mouth as needed. [facility] alclomethasone (ACLOVATE) 0.05 % cream 2020-04-07 00:00:00 Yes 1{application} QD Apply 1 application topically daily. [facility] 24 HR mirabegron 50 MG Extended Release Tablet [Myrbetriq] 2020-04-04 19:26:00 Yes 50 mg = 1 tab, PO, Daily, # 90 tab, 0 Refill(s), [id number] 18:38:00 No 10 mg, PO, Q PM, 0 Refill(s) Geoff Doyle gabapentin 300 MG Oral Capsule 2020-04-03 18:33:00 No 300 mg = 1 cap, PO, QPM, # 90 cap, 1 Refill(s) Jimmy Doyle clonazePAM 0.5 mg oral tablet 2020-04-03 18:33:00 No 0.5 mg = 1 tab, PO, BID, PRN anxiety, # 60 tab, 0 Refill(s) Geoff Doyle methenamine hippurate 2020-04-03 18:10:00 No 25 gm, PO, QAM & PM, 0 Refill(s) Geoff Doyle tamsulosin 0.4 mg oral capsule 2020-04-03 18:10:00 No 0.4 mg = 1 cap, PO, QAM & PM, # 90 cap, 0 Refill(s) Geoff Doyle baclofen 10 mg oral tablet 2020-04-03 18:10:00 No 10 mg = 1 tab, PO, QAM & PM, # 270 tab, 0 Refill(s) Maricruz Feng Glucotrol 2019-11-11 16:00:00 No 2.5 mg, 0.5 tab, Route: PO, Drug form: TAB, Before Breakfast, Start date: 11/11/19 10:00:00 PICK UP AND DELIVERY DRIVER, Duration: 30 day, Stop date: 12/11/19 7:30:00 PICK UP AND DELIVERY DRIVER, 0 [facility] [place] 200 ACTUAT Albuterol 0.09 MG/ACTUAT Metered Dose Inhaler [Pr oAir HFA] 2019-11-11 15:22:00 Yes 180 microgram = 2 puff, INHALATION, Daily, 0 Refill(s) [facility] [place] Oxygen 2019-11-11 15:22:00 Yes Oxygen, 1 btl, MISC, Bedtime, Refill(s) 0 [facility] ProAir HFA 2019-11-11 15:22:00 Yes ProAir HFA, 1 - 2 puffs, PO, Daily, Refill(s) 0 [facility] Vivek Acetaminophen 300 MG / Codeine Phosphate 30 MG Oral Tablet 2019-11-11 15:22:00 Yes 1 tab, PO, Q6H, PRN Pain Score 7-10, # 30 tab, 0 Refill(s) [facility] [place] 200 ACTUAT Albuterol 0.09 MG/ACTUAT Metered Dose Inhaler [Pr oAir HFA] 2019-11-11 15:00:00 No 180 microgram, 2 puff, Route: INHALATION, Drug Form: AERO/A, Dosing Weight 94.091, kg, Daily, Start date: 11/11/19 9:00:00 PICK UP AND DELIVERY DRIVER, Duration: 30 day, Stop date: 12/10/19 9:00:00 PICK UP AND DELIVERY DRIVER [facility] ProAir HFA 2019-11-11 15:00:00 No ProAir HFA, 1 - 2 puffs, Route: PO, Daily, 11/11/19 9:00:00 PICK UP AND DELIVERY DRIVER, Duration: 30 day, Stop date: 12/10/19 9:00:00 PICK UP AND DELIVERY DRIVER [facility] Allopurinol 2019-11-11 15:00:00 No Notes: ( Same as: Zyloprim) [facility] Aspirin 81 MG Enteric Coated Tablet 2019-11-11 15:00:00 No Notes: Do not crush or chew. (Same As: Ecotrin) [facility] Bumetanide 2019-11-11 15:00:00 No Notes: (S abelardo As: Bumex) [facility] Vitamin D3 1000 intl units oral tablet 2019-11-11 15:00:00 No Notes: Same as : Vitamin D3 [facility] Clobetasol Propionate 0.0005 MG/MG Topical Ointment 11-11 15:00:00 No Notes: (clobetasol propionate 0.05% 15 gm top OIN) (Same As: Temovate) [facility] clopidogrel 2019-11-11 15:00:00 No Notes: ( Same As: Plavix) [facility] Colchicine 2019-11-11 15:00:00 No 0.6 mg, 1 tab, Route: PO, Drug form: TAB, Daily, Dosing Weight 94.091, kg, Start date: 11/11/19 9:00:00 PICK UP AND DELIVERY DRIVER, Duration: 30 day, Stop date: 12/10/19 9:00:00 PICK UP AND DELIVERY DRIVER, 0 [facility] ferrous sulfate 2019-11-11 15:00:00 No Notes: Give with food. "Do Not Crush" [facility] Metolazone 5 MG Oral Tablet 2019-11-11 15:00:00 No Notes: (Same as: Zaroxolyn) [facility] 24 HR mirabegron 50 MG Extended Release Tablet [Myrbetriq] 2019-11-11 15:00:00 No 50 mg, 1 t ab, Route: PO, Drug form: ERTAB, Daily, Dosing Weight 94.091, kg, Start date: 11/11/19 9:00:00 PICK UP AND DELIVERY DRIVER, Duration: 30 day, Stop date: 12/10/19 9:00:00 PICK UP AND DELIVERY DRIVER [facility] Prednisone 2019-11-11 15:00:00 No Notes: (Same as: PredniSONE) Take with food. [facility] Xarelto 2019-11-11 15:00:00 No Notes: (Same as: Xarelto) Administer with food [facility] [facility] Sertraline 2019-11-11 15:00:00 No Notes: (S abelardo as: Zoloft) [facility] Budesonide 0.25 MG/ML Inhalant Solution 2019-11-11 14:00:00 No Notes: (Same As: Pulmicort) [facility] glimepiride 2019-11-11 14:00:00 No 1 mg, 1 tab, Route: PO, Drug form: TAB, Breakfast, Dosing Weight 94.091, kg, Start date: 11/11/19 8:00:00 PICK UP AND DELIVERY DRIVER, Duration: 30 day, Stop date: 12/10/19 8:00:00 PICK UP AND DELIVERY DRIVER [facility] Thyroxine 2019-11-11 12:30:00 No 100 microgram, 1 tab, Route: PO, Drug form: TAB, [id number], Dosing Weight 94.091, kg, Start date: 11/11/19 6:30:00 PICK UP AND DELIVERY DRIVER, Duration: 30 day, Stop date: 12/10/19 6:30:00 PICK UP AND DELIVERY DRIVER, 0 [facility] Triiodothyronine 2019-11-11 12:30:00 No Notes: (Same as: Cytomel) [facility] Dilaudid 2019-11-11 10:46:00 No Notes: Same as Dilaudid [facility] Fentanyl 2019-11-11 10:15:00 No 25 microgram, Route: IV, ONCE, Dosing Weight 94.091, kg, Start date: 11/11/19 4:15:00 PICK UP AND DELIVERY DRIVER, Stop date: 11/11/19 4:15:00 PICK UP AND DELIVERY DRIVER [facility] Saline Flush 0.9% 2019-11-11 03:00:00 No Notes: (Same as: BD Posiflush) [facility] Oxygen 2019-11-11 03:00:00 No Oxygen, 1 btl, Route: MISC, Bedtime, 11/10/19 21:00:00 PICK UP AND DELIVERY DRIVER, Duration: 30 day, Stop date: 12/09/19 21:00:00 PICK UP AND DELIVERY DRIVER [facility] Folic Acid 2019-11-11 03:00:00 No 0.4 mg, 1 tab, Route: PO, Drug form: TAB, BID, Dosing Weight 94.091, kg, Start date: 11/10/19 21:00:00 PICK UP AND DELIVERY DRIVER, Duration: 30 day, Stop date: 12/10/19 9:00:00 PICK UP AND DELIVERY DRIVER, 0 [facility] Pramipexole 2019-11-11 03:00:00 No 0.25 mg, 2 tab, Route: PO, Drug form: TAB, Bedtime, Dosing Weight 94.091, kg, Start date: 11/10/19 21:00:00 PICK UP AND DELIVERY DRIVER, Duration: 30 day, Stop date: 12/09/19 21:00:00 PICK UP AND DELIVERY DRIVER [facility] ropinirole 2019-11-11 03:00:00 No 0.5 mg, Route: PO, Drug form: TAB, Bedtime, Dosing Weight 94.091, kg, Start date: 11/10/19 21:00:00 PICK UP AND DELIVERY DRIVER, Duration: 30 day, Stop date: 12/09/19 21:00:00 PICK UP AND DELIVERY DRIVER [facility] Albuterol 0.83 MG/ML Inhalant Solution 2019-11-11 02:00:00 No Notes: SEE RT DOCUMENTATION (Same as: Proventil) [facility] latanoprost 2019-11-10 23:00:00 No Notes: Keep refrigerated. (Same as:Xalatan) Opened bottle may be stored at room temperature for 6 weeks Geoff Vivek 24 HR Metoprolol Tartrate 25 MG Extended Release Tablet [Top rol] 2019-11-10 23:00:00 No Notes: (Sa me as: Toprol XL) Do Not Crush 12.5 mg = 1/2 x 25 mg TAB [facility] Potassium Chloride 2019-11-10 23:00:00 No Notes: (Same as: K-Dur 20) "Do Not Crush" Give with food and full glass of water For patients unable to swallow tablet, dissolve in one half glass of water. Allow about 2 minutes for the tablets to disintegrate. Stir before giving to prepare slurry and administer. Please exclude Patient s with feeding tube less than 14 [place] (Dobhoff, J-tube etc) and pediatric and patients. [facility] Alprazolam 0.5 MG Oral Tablet 2019-11-10 21:14:00 No Notes: With food or milk (Same as: Xanax) [facility] Dulcolax Laxative 2019-11-10 21:14:00 No Notes: (Same As: Dulcolax, Bisco-Lax) [facility] acetaminophen-codeine #3 2019-11-10 21:13:00 No Notes: Do not exceed 4gm/day of acetaminophen. (Same as: Tylenol with Codeine # 3) [facility] Saline Flush 0.9% 2019-11-10 21:13:00 No Notes: (Same as: BD Posiflush) [facility] protamine (ANES) 2019-11-10 21:12:00 No Route: IV, Drug form: INJ, ONCE, Stop date: 11/10/19 15:12:00 PICK UP AND DELIVERY DRIVER [facility] glycopyrrolate (ANES) 2019-11-10 21:12:00 No Route: IV, Drug form: INJ, ONCE, Stop date: 11/10/19 15:12:00 PICK UP AND DELIVERY DRIVER [facility] neostigmine (ANES) 2019-11-10 21:12:00 No Route: IV, Drug form: INJ, ONCE, Stop date: 11/10/19 15:12:00 PICK UP AND DELIVERY DRIVER [facility] norepinephrine (ANES) 2019-11-10 20:39:00 No Route: IV, Drug form: INJ, ONCE, Stop date: 11/10/19 14:39:00 [facility] heparin (ANES) 2019-11-10 20:39:00 No Route: IV, Drug form: INJ, ONCE, Stop date: 11/10/19 14:39:00 [facility]ICK [facility]ERY [facility] ([facility] 2019-11-10 20:34:00 No Route: IV, Drug form: INJ, ONCE, Stop date: 11/10/19 14:34:00 PICK UP AND DELIVERY DRIVER [facility] ceFAZolin (ANES) 2019-11-10 20:34:00 No Route: IV, Drug form: INJ, ONCE, Stop date: 11/10/19 14:34:00 PICK UP AND DELIVERY DR[facility] [place] lidocaine (ANES) 2019-11-10 20:18:00 No Route: IV, Drug form: INJ, ONCE, Stop date: 11/10/19 14:18:00 PICK UP AND DELIVERY DR[facility] [place] rocuronium (ANES) 2019-11-10 20:18:00 No Route: IV, Drug form: INJ, ONCE, Stop date: 11/10/19 14:18:00 PICK UP AND DELIVERY DRIVER yulietrial Vivek fentaNYL (ANES) 2019-11-10 20:18:00 No Route: IV, Drug form: INJ, ONCE, Stop date: 11/10/19 14:18:00 PICK UP AND DELIVERY DRIVER yulietribraulio Doyle Fentanyl 2019-11-10 19:56:00 No Notes: (Same as: Sublimaze) Preservative free. Geoff Silverann Hydromorphone 2019-11-10 19:56:00 No Notes: Same as Dilaudid [facility] Vivek Flumazenil 2019-11-10 19:56:00 No Notes: (S abelardo as: Romazicon) [facility] Vivek Naloxone 2019-11-10 19:56:00 No Notes: Same as Narcan [facility] Vivek Diphenhydramine 2019-11-10 19:56:00 No Notes: (Same as: Benadryl) [facility] Vivek Ondansetron 2019-11-10 19:56:00 No Notes: (Same as: Zofran) MEDICATION WASTE Product Size: 4 mg Product Wasted: ___ mg Geoff Vivek norepinephrine (SURENDRAS) 10 microgram 2019-11-10 19:51:00 No Route: IV, Drug form: INJ, Start date: 11/10/19 13:51:00 PICK UP AND DELIVERY DRIVER, Stop date: 11/10/19 14:51:00 PICK UP AND DELIVERY DRIVER Geoff Doyle Sodium Chloride 0.9% IV (FENG) 1000 mL 2019-11-10 19:29:00 No Route: IV, Total Volume: 1,000, Start date: 11/10/19 13:29:00 PICK UP AND DELIVERY DRIVER, Stop date: 11/10/19 14:29:00 PICK UP AND DELIVERY DRIVER Geoff Doyle methenamine hippurate 1 g oral tablet 2019-11-10 17:17:00 Y es 1 gm = 1 tab, PO, BID, 0 Refill(s) Geoff jones Metolazone 5 MG Oral Tablet 2019-11-10 17:17:00 [...] 1 tab, PO, Breakfast, 0 Refill(s) Geoff Silver alis Albuterol 0.83 MG/ML Inhalant Solution 2019-11-10 17:04:00 Yes 2.5 mg = 3 mL, NEB, BID, am/pm, 0 Refill(s) Geoff Doyle Sodium Chloride 0.9% IV 1,000 mL 2019-11-10 16:52:00 No 1,000 ml, Rate: 50 ml/hr, Infuse over: 20 hr, Route: IV, Dosing Weight 94.091 kg, Total Volume: 1,000, Start date: 11/10/19 10:52:00 PICK UP AND DELIVERY DRIVER, Duration: 30 day, Stop date: 12/10/19 10:51:00 PICK UP AND DELIVERY DRIVER, 2.16, m2, 0 Memor ial Vivek metOLazone (ZAROXOLYN) 5 MG tablet 2019-11-10 00:00:00 Yes 5mg Take 5 mg by mouth as needed. [facility] ALBUTEROL INHL 2019-11-10 00:00:00 Yes Q.5D 1 Inhalation by Nasal route 2 (two) times daily. [facility] Bacitracin 0.5 UNT/MG / Polymyxin B 10 UNT/MG Topical Ointme nt 2019-10-17 04:39:00 Yes 1 appl, TOP, QID, # 30 gm, 0 Refill(s) Gefof Doyle Albuterol 0.83 MG/ML Inhalant Solution 2019-10-17 02:10:00 No Notes: SEE RT DOCUMENTATION (Same as: Madhuri) Geoff Doyle Bacitracin 0.5 UNT/MG Topical Ointment 2019-10-17 00:58:00 No 1 appl, Route: TOP, ONCE, Drug form: OINT, Start date: 10/16/19 18:58:00 PICK UP AND DELIVERY DRIVER, Stop date: 10/16/19 18:58:00 PICK UP AND DELIVERY DRIVER, 0 [facility] 24 HR mirabegron 50 MG Extended Release Tablet [Myrbetriq] 2019-06-02 16:06:04 Yes 50 mg = 1 tab, PO, Daily, # 90 tab, 1 Refill(s), Pharmacy: [id number] Midodrine Hcl Midodrine Hcl 2019-05-28 08:27:00 2019-06-16 00:00:00 No 10 Tid@08,12,16 [facility] Levofloxacin 500 MG Oral Tablet [Levaquin] 2019-05-18 18:23:00 Yes 500 mg = 1 tab, PO, Q24H, X 7 day, # 7 tab, 0 Refill(s), Pharmacy: [facility] [id number] [facility] albuterol (PROAIR HFA,PROVENTIL HFA,VENTOLIN HFA) 90 mcg/act [...] 10 MG tablet 2019-05-11 13:46:42 Yes 10mg [id number] Take 10 mg by mouth 3 (three) [...] B-12, (VITAMIN B-12 ORAL) 2019-05-11 13:46:42 Yes [id number] Q7D Take 10,000 mcg by mouth once [...] 2019-05-04 05:40:00 2019-12-24 00:00:00 No .4 Bedti me [facility] Bumetanide Bumetanide 2019-05-04 05:40:00 2019-06-16 00:00:00 No 4 Twice A Day [facility] Lidocaine Patch Lidocaine Patch 2019-05-04 05:40:00 2019-06-16 00:00:00 No 1 Q24h [facility] Metolazone Metolazone 2019-05-04 05:40:00 2019-06-16 00:00:[address] [facility] allopurinol 300 mg oral tablet 2019-04-19 21:01:00 Yes 300 mg = 1 tab, PO, Daily, # 90 tab, 1 [facility] methen[facility] hippurate 2019-04-19 21:01:00 Yes 1 gm, PO, Daily, 0 Refill(s) [facility] Vivek Dulcolax Laxative 2019-04-19 21:01:00 Yes = 1 supp, MS, Daily, PRN constipation, # 5 supp, 0 Refill(s) Jimmy rial [place] Colchicine 2019-04-19 21:01:00 Yes 0 .6 mg, PO, Daily, 0 Refill(s) [facility] bisacodyL (DULCOLAX) 5 mg EC tablet 2019-04-19 00:00:00 Yes 5mg Take 5 mg by mouth as needed. [facility] allopurinoL (ZYLOPRIM) 300 MG tablet 2019-04-19 00:00:00 Ye s 300mg QD Take 300 mg by mouth daily. [facility] Sucralfate (Carafate) 1 Gm TABLET Sucralfate (Carafate) 1 Gm TABLET 2019-02-15 06:50:00 2019-08-05 00:00:00 No 1 Before Meals [facility] Fosfomycin 33.3 MG/ML Oral Suspension [Monurol] 2018-12-03 14:58 :00 Yes = 1 Pack, PO, ONCE, # 3 gm, 0 Refill(s), Pharmacy: [facility] [id number] Geoff Doyle Hydrochlorothiazide 50 MG / Spironolactone [...] Doyle Sodium Chloride 1.2 MEQ/ML Inhalant Solution [Hyper-Candy] 2018-11-30 20:00:00 Yes PRN, 0 Refill(s) Geoff [...] Yes RAPATHA INJECTION 140MG Q2WEEK, Refill(s) 0 [facility] Vivek rOPINIRole 0.5 mg oral tablet 2018-11-30 20:00:00 [...] # 90 tab, 3 Refill(s) Geoff Doyle Folic Acid 2018-11-30 20:00:00 Yes 400 MCG, BID, 0 Refill(s) [facility] Mucus Relief DM 2018-11-30 20:00:00 Yes PO, BID, 0 Refill(s) [facility] Vitamin B12 Methylcobalamin 2018-11-30 20:00:00 Yes SL, qWeek, 0 Refill(s) [facility] Vitamin D3 2000 intl units oral capsule 2018-11-30 20:00:00 Yes 2,000 IntlUnit = 1 cap, PO, Daily, # 100 cap, 3 Refill(s) [facility] cholecalciferol, vitamin D3, (VITAMIN D3) 50 mcg (2,000 unit ) Cap 2018-11-30 00:00:00 Yes 1{capsule} QD Take 1 capsule by mouth d aily. [facility] sodium chloride for inhalation (HYPER-CANDY INHL) 2018-11-30 00:00 :00 Yes 1 Inhalation by Nasal route as needed. [facility] rOPINIRole (REQUIP) 0.5 MG tablet 2018-11-30 00:00:00 Yes .5mg QD Take 0.5 mg by mouth daily. [facility] guaifenesin/dextromethorphan (DAYTIME MUCUS RELIEF DM ORAL) 2018-11-30 00:00:00 Yes 400mg Take 400 mg by mouth as neede d. [facility] clobetasoL (CLOBEX) 0.05 % lotion 2018-11-30 00:00:00 Ye s 1{application} Apply 1 application topically as needed. [facility] budesonide (PULMICORT) 0.5 mg/2 mL nebulizer solution 2018-11-30 00:00:00 Yes 1 Inhalation by Nasal route as needed. [facility] baclofen (LIORESAL) 10 MG tablet 2018-11-30 00:00:00 Yes 10mg Q.5D Take 10 mg by mouth 2 (two) times daily. [facility] aspirin (ENTERIC COATED ASPIRIN) 81 MG EC tablet 2018-11-30 00:00:00 Yes 81mg QD Take 81 mg by mouth daily. [facility] clopidogreL (PLAVIX) 75 mg tablet 2018-11-30 00:00:00 2019 00:00:00 No 75mg QD Take 75 mg by mouth daily. [facility] 24 HR mirabegron 50 MG Extended Release Tablet [Myrbetriq] 2018-11-05 15:12:29 Yes See Instru ctions, TAKE 1 TABLET BY MOUTH EVERY DAY, # 90 tab, 0 Refill(s), Pharmacy: [facility] [id number], please have patient call for appt prior to next refill [facility] Shanelle Azithromycin (Zithromax) 500 Mg TABLET Azithromycin (Zithrom ax) 500 Mg TABLET 2018-09-16 09:28:00 2018-11-05 00:00:00 No 500 Daily [facility] Sulfamethoxazole/Trimethoprim (Bactrim Ds Tablet) 1 Ea ch TABLET Sulfamethoxazole/Trimethoprim (Bactrim Ds Tablet) 1 Each TABLET 2018-09-16 09:27:00 2018-11-05 00:00:00 No 1 Twice A Day [facility] Metoprolol Tartrate (Lopressor) 25 Mg TAB Metoprolol T artrate (Lopressor) 25 Mg TAB 2017-06-11 11:30:00 2019-12-24 00:00:00 No 25 Ever y 12 Hours [facility] Furosemide Furosemide 2017-06-11 11:30:00 2019-01-09 00:00:00 No 80 Bid@,18 [facility] Azithromycin (Z-Asad) 250 Mg TABLET Azithromycin (Z-Asad) 250 Mg TABLET 2017-06-11 11:30:00 2018-09-13 00:00:00 No 500 Daily [facility] Docusate Sodium (Colace) 100 Mg CAPSULE Docusate Sodium (Col rhiannon) 100 Mg CAPSULE 2017-06-11 11:30:00 2018-09-13 00:00:00 No 100 Three Times A Day [facility] Polyethylene Glycol 3350 (Miralax) 17 Gm POWD.PACK Dominic yethylene Glycol 3350 (Miralax) 17 Gm POWD.PACK 2017-06-11 11:30:00 2018-09-13 00:00:00 No 17 Twice A Day [facility] Prednisone Prednisone 2017-06-11 11:30:00 2018-09-13 00:00:[address] [facility] Warfarin Sodium (Coumadin) 5 Mg TABLET Warfarin Sodium (Coum esther) 5 Mg TABLET 2017-06-11 11:30:00 2018-09-13 00:00:00 No 5 Daily At 1700 [facility] Albuterol Sulfate Albuterol Sulfate Yes .83 Twic e A Day [facility] Albuterol Sulfate (Proair Hfa Inhaler*) 8.5 Gm INH Alb uterol Sulfate (Proair Hfa Inhaler*) 8.5 Gm INH Yes 2 Daily [facility] Allopurinol Allopurinol Yes 300 Bedtime [facility] Alprazolam Alprazolam Yes .5 As Needed [facility] Aspirin (Aspir 81) 81 Mg TABLET. Aspirin (Aspir 81) 81 Mg TABLET. Yes 1 Daily [facility] Bisacodyl (Dulcolax) 5 Mg TABLET. Bisacodyl (Dulcolax) 5 Mg TABLET. Yes 2 Daily [facility] Budesonide Budesonide Yes 2 Twice A Day [facility] Cholecalciferol (Vitamin D3) (Vitamin D3) 5,000 Unit T AB.RAPDIS Cholecalciferol (Vitamin D3) (Vitamin D3) 5,000 Unit TAB.RAPDIS Yes 10 000 Daily [facility] Clopidogrel Bisulfate (Clopidogrel) 75 Mg TABLET Clopi dogrel Bisulfate (Clopidogrel) 75 Mg TABLET Yes 75 Daily [facility] Colchicine (Colcrys) 0.6 Mg TABLET Colchicine (Colcrys) 0.6 Mg TABLET Yes .6 Daily as needed for Mild Pain (1-3) Or Fever>10 0.8 [facility] Cyanocobalamin (Vitamin B-12) (Vitamin B-12) 1,000 Mcg TAB.SUBL Cyanocobalamin (Vitamin B-12) (Vitamin B-12) 1,000 Mcg TAB.SUBL Yes 1 000 .weekly [facility] Folic Acid Folic Acid Yes 400 Twice A Day [facility] Gabapentin Gabapentin Yes 300 Twice A Day [facility] Hydromorphone Hcl Hydromorphone Hcl Yes 8 Daily as needed for Severe Pain (7-10) [facility] Hydromorphone/Bupiv/0.9NACL/Pf (Hydromor -Bupiva 10 Mcg-0.0625%) 100 Ml PUMP.RESVR Hydromorphone/Bupiv/0.9NACL/Pf (Hydromor -Bupiva 10 Mcg-0.0625%) 100 Ml PUMP.RESVR Yes 1 Daily [facility] Latanoprost Latanoprost Yes 1 Bedtime [facility] Levothyroxine Sodium Levothyroxine Sodium Yes 100 Daily [facility] Lidocaine (Lidocaine Pain Relief) 1 Each ADH..PATCH Li docaine (Lidocaine Pain Relief) 1 Each ADH..PATCH Yes 6 Every 12 Yahir rs as needed for Prn [facility] Liothyronine Sodium Liothyronine Sodium Yes 5 Every Morning [facility] Methenamine Hippurate Methenamine Hippurate Yes .5 Twice A Day [facility] Metoprolol Tartrate Metoprolol Tartrate Yes 12.5 Twice A Day [facility] Mirabegron (Myrbetriq) 50 Mg TAB.ER.24H Mirabegron (Myrbetri q) 50 Mg TAB.ER.24H Yes 50 Daily [facility] Potassium Chloride Potassium Chloride Yes 20 Tw ice A Day [facility] Psyllium Husk (Wal-Mucil) 0.52 Gm CAPSULE Psyllium Hus k (Wal-Mucil) 0.52 Gm CAPSULE Yes [address] [facility] Rivaroxaban (Xarelto) 15 Mg TABLET Rivaroxaban (Xarelto) 15 Mg TABLET Yes 15 Daily [facility] Ropinirole Hcl Ropinirole Hcl Yes .5 Twice A Da y [facility] Sertraline Hcl Sertraline Hcl Yes 50 Bedtime [facility] Sodium Chloride For Inhalation (Hyper-Candy) 4 Ml VIAL.N EB Sodium Chloride For Inhalation (Hyper-Candy) 4 Ml VIAL.NEB Yes 7 A s Needed [facility] Tamsulosin Hcl (Flomax*) 0.4 Mg CAP Tamsulosin Hcl (Flomax*) 0.4 Mg C AP Yes .4 Twice A Day [facility] Testosterone Cypionate Testosterone Cypionate Yes 200 [facility] Alcomethasone Dipror Alcomethasone Dipror 2020-06-20 00:00:00 No .05 Daily [facility] Baclofen Baclofen 2020-06-20 00:00:00 No Twice A Day [facility] Bumetanide Bumetanide 2020-06-20 00:00:00 No 1 Twi ce A Day [facility] Clobetasol Propionate Clobetasol Propionate 2020-06-20 00:00:00 No 1 Daily [facility] Clonazepam Clonazepam 2020-06-20 00:00:00 No .25 Bedtime as needed for Sleep [facility] Guaifenesin (Mucus Relief) 400 Mg TABLET Guaifenesin ( Mucus Relief) 400 Mg TABLET 2020-06-20 00:00:00 No 1 Twic e A Day as needed for Nasal Congestion [facility] Keto/Cyclo/Lido Keto/Cyclo/Lido 2020-06-20 00:00:00 No Four Times Daily as needed for Pain [facility] Metolazone Metolazone 2020-06-20 00:00:00 No 5 Bed time [facility] Prednisone Prednisone 2020-06-20 00:00:00 No 20 Twi ce A Day [facility] Cholecalciferol (Vitamin D3) (Vitamin D3) 1,000 Unit C APSULE Cholecalciferol (Vitamin D3) (Vitamin D3) 1,000 Unit CAPSULE 2019-12-24 00:00:00 No 1000 Daily [facility] Hypersal 7% Hypersal 7% 2019-12-24 00:00:00 No 1 As Needed as needed for Shortness Of Breath [facility] Levofloxacin (Levaquin) 500 Mg TABLET Levofloxacin (Levaquin) 50 0 Mg TABLET 2019-12-24 00:00:00 No 750 Daily [facility] Pramipexole Di-Hcl (Pramipexole Dihydrochloride) 0.25 Mg TABLET Pramipexole Di- Hcl (Pramipexole Dihydrochloride) 0.25 Mg TABLET 2019-12-24 00:00:00 No .25 Bedtime [facility] Sucralfate (Carafate) 1 Gm/10 Ml ORAL.SUSP Sucralfate (Carafate) 1 Gm/10 Ml ORAL.SUSP 2019-12-24 00:00:00 No 1 Daily [facility] 00:00:00 No 2 Twi ce A Day [facility] Aclovate Aclovate 2019-08-05 00:00:00 No 1 Daily [facility] Alcometasone Alcometasone 2019-08-05 00:00:00 No .05 Daily [facility] Cosentyx Cosentyx 2019-08-05 00:00:00 No 150 .monthl y [facility] Potassium Chloride Potassium Chloride 2019-06-16 00:00:00 No 20 Twice A Day [facility] Baclofen Baclofen 2019-05-28 00:00:00 No 10 Three T imes A Day [facility] Bumetanide Bumetanide 2019-05-04 00:00:00 No 2 Twi ce A Day [facility] Carisoprodol (Soma) 350 Mg TABLET Carisoprodol (Soma) 350 Mg TAB LET 2019-04-23 00:00:00 No 350 Daily as needed for Pain [facility] Cholecalciferol (Vitamin D3) (Vitamin D3) 2,000 Unit C APSULE Cholecalciferol (Vitamin D3) (Vitamin D3) 2,000 Unit CAPSULE 2019-04-23 00:00:00 No 6000 Bedtime [facility] Cosentyx Cosentyx 2019-04-23 00:00:00 No 150 [facility] Folic Acid Folic Acid 2019-04-23 00:00:00 No 400 Twi ce A Day [facility] Guaifenesin (Mucus Relief) 400 Mg TABLET Guaifenesin ( Mucus Relief) 400 Mg TABLET 2019-04-23 00:00:00 No 400 Twice A Day [facility] Hydromorphone Hcl Hydromorphone Hcl 2019-04-23 00:00:00 No 8 As Needed as needed for Prn [facility] Metolazone Metolazone 2019-04-23 00:00:00 No 5 [facility] Pantoprazole Sodium (Protonix) 40 Mg TABLET. Pantopr azole Sodium (Protonix) 40 Mg TABLET. 2019-04-23 00:00:00 No 40 Bedtime [facility] Sodium Chloride For Inhalation (Hyper-Candy) 4 Ml VIAL.N EB Sodium Chloride For Inhalation (Hyper-Candy) 4 Ml VIAL.NEB 2019-04-23 00:00:00 No 7 Daily as needed for Nasal Congestion [facility] Spironolact/Hydrochlorothiazid (Aldactazide 50-50 Tabl et) 1 Each TABLET Spironolact/Hydrochlorothiazid (Aldactazide 50-50 Tablet) 1 Each TABLET 2019-04-23 00:00:00 No 1 Daily [facility] Vitamin B12 Vitamin B12 2019-04-23 00:00:00 No [id number] Use As Directed [facility] Clindamycin Hcl Clindamycin Hcl 2019-02-15 00:00:00 No 300 Three Times A Day [facility] Potassium Chloride (K-Dur) 20 Meq TAB.ER.PRT Potassium Chloride (K-Dur) 20 Meq TAB.ER.PRT 2019-01-09 00:00:00 No 20 Every 12 Hour s [facility] Prednisone Prednisone 2018-12-30 00:00:00 No 30 Laquita ly [facility] Prednisone Prednisone 2018-12-30 00:00:00 No 20 Laquita ly [facility] Prednisone Prednisone 2018-12-30 00:00:00 No 10 Laquita ly [facility] Albuterol Sulfate (Proair Hfa Inhaler*) 8.5 Gm INH Alb uterol Sulfate (Proair Hfa Inhaler*) 8.5 Gm INH 2018-12-11 00:00:00 No 3 [facility] Alclometasone Dipropionate Alclometasone Dipropionate 2018 00:00:00 No 1 Daily [facility] Albuterol Sulfate (Proair Hfa Inhaler*) 8.5 Gm INH Alb uterol Sulfate (Proair Hfa Inhaler*) 8.5 Gm INH 2018-12-07 00:00:00 No 2 Da ekaterina [facility] Clobetasol Propionate Clobetasol Propionate 2018-12-07 00:00:00 No 1 Daily [facility] Mirabegron (Myrbetriq) 50 Mg TAB.ER.24H Mirabegron (Myrbetri q) 50 Mg TAB.ER.24H 2018-12-07 00:00:00 No 50 Every Morning [facility] Rapatha Injection Rapatha Injection 2018-12-07 00:00:00 No 140 Use As Directed [facility] Spironolactone (Aldactone) 50 Mg TABLET Spironolactone ([place] ctone) 50 Mg TABLET 2018-12-07 00:00:00 No 50 As Needed [facility] Folic Acid Folic Acid 2018-11-05 00:00:00 No 1 Twi ce A Day [facility] Warfarin Sodium Warfarin Sodium 2018-11-05 00:00:00 No 3 Daily [facility] Albuterol Sulf (Proventil 0.083% Neb) 3 Ml NEBU Albute rol Sulf (Proventil 0.083% Neb) 3 Ml NEBU 2018-09-13 00:00:00 No 3 Every 12 Hours [facility] Albuterol Sulfate (Proair Hfa Inhaler*) 8.5 Gm INH Alb uterol Sulfate (Proair Hfa Inhaler*) 8.5 Gm INH 2018-09-13 00:00:00 No 1 Th ree Times A Day [facility] Albuterol Sulfate (Proair Hfa Inhaler*) 8.5 Gm INH Alb uterol Sulfate (Proair Hfa Inhaler*) 8.5 Gm INH 2018-09-13 00:00:00 No [facility] Cyanocobalamin (Vitamin B-12) (Vitamin B-12) 2,000 Mcg TABLET.ER Cyanocobalamin (Vitamin B-12) (Vitamin B-12) 2,000 Mcg TABLET.ER 2018-09-13 00:00:00 No 2000 Weekly [facility] Duloxetine Hcl (Cymbalta) 30 Mg CAPSULE. Duloxetine Hcl (Cymbalta) 30 Mg CAPSULE. 2018-09-13 00:00:00 No 60 Bedtime [facility] Fe Fumarate/Vit C/B12-If/Fa (Ferocon Capsule) 1 Each C APSULE Fe Fumarate/Vit C/B12-If/Fa (Ferocon Capsule) 1 Each CAPSULE 2018-09-13 00:00:00 No 1 Daily [facility] Formoterol Fumarate (Perforomist) 20 Mcg/2 Ml VIAL.[facility] Formoterol Fumarate (Perforomist) 20 Mcg/2 Ml VIAL.NEB 2018-09-13 00:00:00 No 2 0 Daily [facility] Liraglutide (Victoza 3-Asad) 0.6 Mg/0.1 Ml PEN.INJCTR L iraglutide (Victoza 3-Asad) 0.6 Mg/0.1 Ml PEN.INJCTR 2018-09-13 00:00:00 No 1.8 Every Morning [facility] [place]-3/Dha/Epa/Fish Oil (Fish Oil [place]-3 Softgel) 1 Each CAPSULE. [place]- 3/Dha/Epa/Fish Oil (Fish Oil [place]-3 Softgel) 1 Each CAPSULE. 2018-09-13 00:00:00 No 1 Twice A Day [facility] Repaglinide (Prandin) 1 Mg TAB Repaglinide (Prandin) 1 Mg TAB 2018-09-13 00:00:00 No .5 As Needed [facility] Tamsulosin Hcl Tamsulosin Hcl 2018-09-13 00:00:[address] No [address] [facility] Testoterone Testoterone 2018-09-13 00:00:00 No 1 [facility] Furosemide Furosemide 2017-06-11 00:00:00 No 80 Laquita ly [facility] Metoprolol Tartrate Metoprolol Tartrate 2017-06-11 00:00:00 No 12.5 Twice A Day [facility] Warfarin Sodium (Coumadin) 5 Mg TABLET Warfarin Sodium (Coumadin ) 5 Mg TABLET 2017-06-11 00:00:00 No 3 Today At 5:00PM [facility] Furosemide (Lasix) 40 Mg TABLET Furosemide (Lasix) 40 Mg TABLET 2017-06-04 00:00:00 No 2 Twice A Day [facility] Furosemide (Lasix) 40 Mg TABLET Furosemide (Lasix) 40 Mg TABLET 2017-06-04 00:00:00 No 80 Twice A Day [facility] Ibuprofen Ibuprofen 2017-06-04 00:00:00 No 600 Every 6 Hours as needed for [facility] [place] 2017-06-04 00:00:00 No 400 Twice A Day [facility] Servent Disk Servent Disk 2017-06-04 00:00:00 No 50 Twice A Day [facility] Warfarin Sodium (Coumadin) 5 Mg TABLET Warfarin Sodium (Coumadin ) 5 Mg TABLET 2017-06-04 00:00:00 No 3 Today At 5:00PM [facility] Warfarin Sodium (Coumadin) 2 Mg TABLET Warfarin Sodium (Coumadin ) 2 Mg TABLET 2017-06-04 00:00:00 No 2 Daily [facility] Warfarin Sodium (Coumadin) 2.5 Mg TABLET Warfarin Sodi um (Coumadin) 2.5 Mg TABLET 2017-06-04 00:00:00 No 2.5 Daily [facility] Warfarin Sodium (Coumadin) 5 Mg TABLET Warfarin Sodium (Coumadin ) 5 Mg TABLET 2017-06-04 00:00:00 No 5 Today At 5:00PM [facility] Aspirin Aspirin 2017-05-07 00:00:00 No 81 Daily [facility] Bupivacaine Hcl (Marcaine) 2.5 Mg/1 Ml VIAL Bupivacain e Hcl (Marcaine) 2.5 Mg/1 Ml VIAL 2017-05-07 00:00:00 No 1.143 Daily [facility] Carisoprodol Carisoprodol 2017-05-07 00:00:00 No 350 as needed [facility] Fenofibric Acid (Choline) (Trilipix) 135 Mg CAPSULE. Fenofibric Acid (Choline) (Trilipix) 135 Mg CAPSULE. 2017-05-07 00:00:00 No 135 Daily [facility] Hydrocodone Bit/Acetaminophen (Hydrocodone-Apap 10-325 Mg Tab) 1 Each TABLET Hydrocodone Bit/Acetaminophen (Hydrocodone-Apap 10-325 Mg Tab) 1 Each TABLET 2017-05-07 00:00:00 No 1 as needed [facility] Hydrocodone Bit/Acetaminophen (Hydrocodon-Acetaminophn 10-325) 1 Each TABLET Hydrocodone Bit/Acetaminophen (Hydrocodon-Acetaminophn 10-325) 1 Each TABLET 2017-05-07 00:00:00 No 10 As Needed [facility] Latanoprost Latanoprost 2017-05-07 00:00:00 No 2.5 D aily [facility] Linagliptin (Tradjenta) 5 Mg TABLET Linagliptin (Tradjenta) 5 Mg TABLET 2017-05-07 00:00:00 No 5 Daily [facility] Morphine Pump Morphine Pump 2017-05-07 00:00:00 No 12.7 Daily [facility] Multivitamin (Multivitamins) 1 Each TAB.CHEW Multivita min (Multivitamins) 1 Each TAB.CHEW 2017-05-07 00:00:00 No Daily [facility] Omeprazole Omeprazole 2017-05-07 00:00:00 No 40 Laquita ly [facility] Polyethylene Glycol 3350 (Clearlax) 17 Gm POWD.PACK Po lyethylene Glycol 3350 (Clearlax) 17 Gm POWD.PACK 2017-05-07 00:00:00 No As Needed [facility] Testosterone (Testopel) 75 Mg PELLET.EA. Testosterone (Testopel) 75 Mg PELLET.EA. 2017-05-07 00:00:00 No 75 [facility] Torsemide Torsemide 2017-05-07 00:00:00 No 20 Twice A Day [facility] Zolpidem Tartrate (Ambien) 10 Mg TABLET Zolpidem Tartrate (A mbien) 10 Mg TABLET 2017-05-07 00:00:00 No 10 Bedtime [facility] Axiron Axiron 2013-09-01 00:00:00 No 30 Daily [facility] Caltrate +D Caltrate +D 2013-09-01 00:00:00 No T wice A Day [facility] Furosemide Furosemide 2013-09-01 00:00:00 No 40 Laquita ly [facility] Marcaine Marcaine 2013-09-01 00:00:00 No Daily [facility] Morphine Pump Morphine Pump 2013-09-01 00:00:00 No Daily [facility] Zolpidem Tartrate (Ambien Cr) 12.5 Mg TAB.MPHASE Zolpi dem Tartrate (Ambien Cr) 12.5 Mg TAB.MPHASE 2013-09-01 00:00:00 No 12.5 Daily [facility] Vital Signs Vital Name Observation Time Observation Value Comments Source Systolic blood pressure 2020-07-28 17:00:00 119 mm[Hg] [facility] Diastolic blood pressure 2020-07-28 17:00:00 53 mm[Hg] [facility] Heart rate 2020-07-28 17:00:00 82 /min [facility] Body temperature 2020-07-28 17:00:00 36.33 Mary [facility] Respiratory rate 2020-07-28 17:00:00 19 /min [facility] Oxygen saturation in Arterial blood by Pulse oximetry 2019-10 17:00:00 97 [facility] Measured 2020-07-27 05:00:00 97.478 kg [facility] BMI 2020-07-27 05:00:00 31.72 kg/m2 [facility] Body height 2020-07-22 05:24:00 175.3 cm [facility] Weight 2020-06-21 08:40:00 210 [lb_av] [facility] BMI (Body Mass Index) 2020-06-21 08:40:00 31.0 kg/m2 [facility] Body Temperature 2020-06-20 15:45:00 97.5 [degF] [facility] BMI (Body Mass Index) 2020-06-15 19:43:00 31.0 kg/m2 [facility] Weight 2020-06-12 18:43:00 210 [lb_av] [facility] Temperature Oral (F) 2020-04-20 16:14:00 98 F [facility] Heart Rate 2020-04-20 16:14:00 [facility] Respitory Rate 2020-04-20 16:14:00 [facility] Systolic (mm Hg) 2020-04-20 16:14:00 [facility] Diastolic (mm Hg) 2020-04-20 16:14:00 [facility] [place] Temperature Oral (F) 2020-04-20 12:54:00 97.9 F [facility] Heart Rate 2020-04-20 12:54:00 [facility] Systolic (mm Hg) 2020-04-20 12:54:00 [facility] Diastolic (mm Hg) 2020-04-20 12:54:00 [facility] [place] Respitory Rate 2020-04-20 12:54:00 [facility] [place] Temperature Oral (F) 2020-04-20 10:02:00 98.0 F [facility] Heart Rate 2020-04-20 10:02:00 [facility] Systolic (mm Hg) 2020-04-20 10:02:00 [facility] Diastolic (mm Hg) 2020-04-20 10:02:00 [facility] [place] Respitory Rate 2020-04-20 00:22:00 [facility] [place] Height 2020-04-14 09:17:00 175.26 cm [facility] Weight 2020-04-14 09:17:00 [facility] BMI Calculated 2020-04-14 09:17:00 [facility] Height 2020-04-13 15:03:00 175.26 cm [facility] BMI Calculated 2020-04-13 15:03:00 [facility] [place] Weight 2020-04-13 15:03:00 [facility] Temperature Oral (F) 2020-04-13 00:56:00 97.9 F [facility] Heart Rate 2020-04-13 00:56:00 [facility] Respitory Rate 2020-04-13 00:56:00 [facility] [place] Systolic (mm Hg) 2020-04-13 00:56:00 [facility] Diastolic (mm Hg) 2020-04-13 00:56:00 [facility] Systolic (mm Hg) 2020-04-12 23:30:00 [facility] Diastolic (mm Hg) 2020-04-12 23:30:00 [facility] Temperature Oral (F) 2020-04-12 20:53:00 97.0 F [facility] Heart Rate 2020-04-12 20:53:00 [facility] Respitory Rate 2020-04-12 20:53:00 [facility] [place] Systolic (mm Hg) 2020-04-12 20:53:00 Jimmy [facility] [place] Diastolic (mm Hg) 2020-04-12 20:53:00 [facility] [place] Temperature Oral (F) 2020-04-12 20:11:00 98.1 F [facility] Heart Rate 2020-04-12 20:11:00 [facility] Respitory Rate 2020-04-12 20:11:00 [facility] Height 2020-04-07 18:34:00 175.26 cm [facility] Weight 2020-04-07 18:34:00 [facility] BMI Calculated 2020-04-07 18:34:00 [facility] Height 2020-04-07 14:31:00 175.26 cm [facility] Weight 2020-04-07 14:31:00 [facility] Height 2020-04-07 10:57:00 175.26 cm [facility] Weight 2020-04-07 10:57:00 [facility] BMI Calculated 2020-04-07 10:57:00 [facility] Height 2020-04-04 19:05:00 175.26 cm [facility] Weight 2020-04-04 19:05:00 [facility] BMI Calculated 2020-04-04 19:05:00 [facility] [place] BMI Calculated 2020-04-03 17:53:00 [facility] Respitory Rate 2019-11-11 16:00:00 [facility] Systolic (mm Hg) 2019-11-11 16:00:00 Jimmy rial [place] Diastolic (mm Hg) 2019-11-11 16:00:00 [facility] Respitory Rate 2019-11-11 14:07:00 [facility] [place] Systolic (mm Hg) 2019-11-11 14:07:00 [facility] Diastolic (mm Hg) 2019-11-11 14:07:00 [facility] Respitory Rate 2019-11-11 12:00:00 [facility] Systolic (mm Hg) 2019-11-11 12:00:00 [facility] Diastolic (mm Hg) 2019-11-11 12:00:00 [facility] Temperature Oral (F) 2019-11-10 17:00:00 97.6 F [facility] Height 2019-11-10 16:53:00 175.26 cm [facility] Weight 2019-11-10 16:53:00 [facility] BMI Calculated 2019-11-10 16:53:00 [facility] Respitory Rate 2019-10-17 05:00:00 [facility] [place] Systolic (mm Hg) 2019-10-17 05:00:00 Jimmy rial [place] Diastolic (mm Hg) 2019-10-17 05:00:00 [facility] [place] Systolic (mm Hg) 2019-10-17 04:00:00 Jimmy [facility] [place] Diastolic (mm Hg) 2019-10-17 04:00:00 [facility] [place] Respitory Rate 2019-10-17 04:00:00 [facility] Temperature Oral (F) 2019-10-17 04:00:00 98.4 F [facility] Systolic (mm Hg) 2019-10-17 03:50:00 Jimmy angel [place] Diastolic (mm Hg) 2019-10-17 03:50:00 [facility] [place] Respitory Rate 2019-10-17 03:50:00 [facility] Temperature Oral (F) 2019-10-17 01:00:00 98.0 F [facility] Heart Rate 2019-10-16 22:37:00 [facility] Temperature Oral (F) 2019-10-16 22:37:00 98.4 F [facility] Height 2019-06-02 15:55:00 175.26 cm [facility] Weight 2019-06-02 15:55:00 [facility] BMI Calculated 2019-06-02 15:55:00 [facility] [place] BMI Calculated 2019-04-19 15:35:00 [facility] Height 2019-04-19 15:35:00 175.26 cm [facility] Weight 2019-04-19 15:35:00 [facility] Height 2018-11-30 16:13:00 175.26 cm [facility] Weight 2018-11-30 16:13:00 [facility] BMI Calculated 2018-11-30 16:13:00 [facility] Procedures Procedure Date / Time Performed Performing Clinician [facility] e POCT-GLUCOSE METER 2020-07-28 11:36:00 Latrice Peacock [facility] POCT-GLUCOSE METER 2020-07-28 08:33:00 Latrice Peacock [facility] MAGNESIUM 2020-07-28 05:17:00 Polo Clancy [facility] CALCIUM, IONIZED 2020-07-28 05:17:00 [facility] COMPREHENSIVE METABOLIC PANEL 2020-07-28 05:17:00 Jerry Hooks [facility] PHOSPHORUS 2020-07-28 05:17:00 Jerry Hooks [facility] CBC W/PLT COUNT & AUTO DIFFERENTIAL 2020-07-28 05:17:00 Hitesh Hooks [facility] POCT-GLUCOSE METER 2020-07-27 22:43:00 Ayush, Nejmudin Reshad [facility] POCT-GLUCOSE METER 2020-07-27 17:48:00 Ayush, Nejmudin Reshad [facility] POCT-GLUCOSE METER 2020-07-27 13:11:00 Ayush, Nejmudin Reshad I [facility] POCT-GLUCOSE METER 2020-07-27 08:59:00 Ayush, Nejmudin Reshad I [facility] BASIC METABOLIC PANEL (7) 2020-07-27 05:07:00 Polo Clancy In [facility] MAGNESIUM 2020-07-27 05:07:00 Polo Clancy In [facility] CBC (HEMOGRAM ONLY) 2020-07-27 05:07:00 Diana Blake [facility] CALCIUM, IONIZED 2020-07-27 05:07:00 Sadi Mckeon [facility] PHOSPHORUS 2020-07-27 05:07:00 Sadi Mckeon [facility] POCT-GLUCOSE METER 2020-07-26 21:51:00 Ayush, Nejmudin Reshad [facility] POCT-GLUCOSE METER 2020-07-26 16:55:00 Ayush, Nejmudin Reshad [facility] 2D ECHO W/ DOPPLER (CW/PW/COLOR) 2020-07-26 15:25:00 Santosh Ying i [facility] POCT-GLUCOSE METER 2020-07-26 12:44:00 Ayush, Nejmudin Reshad [facility] POCT-GLUCOSE METER 2020-07-26 08:31:00 Ayush, Nejmudin Reshad I [facility] BASIC METABOLIC PANEL (7) 2020-07-26 05:43:00 Polo Clancy In [facility] MAGNESIUM 2020-07-26 05:43:00 Polo Clancy In [facility] CBC (HEMOGRAM ONLY) 2020-07-26 05:43:00 Blake, Diana Michelle [facility] PHOSPHORUS 2020-07-26 05:43:00 Sadi Mckeon [facility] POCT-GLUCOSE METER 2020-07-25 21:06:00 Blake, Diana Michelle [facility] POCT-GLUCOSE METER 2020-07-25 17:01:00 Blake, Diana Michelle [facility] POCT-GLUCOSE METER 2020-07-25 11:42:00 Blake, Diana [facility] POCT-GLUCOSE METER 2020-07-25 07:59:00 Blake, [facility] BASIC METABOLIC PANEL (7) 2020-07-25 06:28:00 Polo Clancy In [facility] MAGNESIUM 2020-07-25 06:28:00 Polo Clancy In [facility] CBC (HEMOGRAM ONLY) 2020-07-25 06:28:00 Blake, Diana Martinez [facility] CALCIUM, IONIZED 2020-07-25 06:28:00 Sadi Mckeon [facility] PHOSPHORUS 2020-07-25 06:28:00 Sadi Mckeon [facility] B-TYPE NATRIURETIC FACTOR (BNP) 2020-07-25 06:28:00 Lela Mckeon [facility] POCT-GLUCOSE METER 2020-07-24 21:18:00 Blake, Diana Michelle [facility] POCT-GLUCOSE METER 2020-07-24 15:59:00 Blake, Diana Michelle [facility] POCT-GLUCOSE METER 2020-07-24 11:29:00 Blake, Diana Michelle [facility] POCT-GLUCOSE METER 2020-07-24 08:57:00 Blake, [facility] BASIC METABOLIC PANEL (7) 2020-07-24 03:50:00 Polo Clancy In [facility] MAGNESIUM 2020-07-24 03:50:00 Polo Clancy In [facility] CBC (HEMOGRAM ONLY) 2020-07-24 03:50:00 Blake, Diana Michelle [facility] POCT-GLUCOSE METER 2020-07-23 19:30:00 Blake, [facility] POCT-GLUCOSE METER 2020-07-23 18:18:00 [facility] 2020-07-23 17:06:00 Blake, Diana [facility] POCT-GLUCOSE METER 2020-07-23 12:00:00 Blake, [facility] POCT-GLUCOSE METER 2020-07-23 10:14:00 Blake, [facility] BASIC METABOLIC PANEL (7) 2020-07-23 06:19:00 Polo Clancy In [facility] 2020-07-23 06:19:00 Polo Clancy In [facility] CBC (HEMOGRAM ONLY) 2020-07-23 06:19:00 Blake, [facility] POCT-GLUCOSE METER 2020-07-22 22:23:00 Blake, [facility] POCT-GLUCOSE METER 2020-07-22 17:35:00 Blake, [facility] POCT-GLUCOSE METER 2020-07-22 12:09:00 Blake, Diana [facility] POCT-GLUCOSE METER 2020-07-22 07:52:00 Blake, [facility] BASIC METABOLIC PANEL (7) 2020-07-22 05:09:00 Polo Clancy In [facility] MAGNESIUM 2020-07-22 05:09:00 Polo Clancy In [facility] CBC (HEMOGRAM ONLY) 2020-07-22 05:09:00 Blake, [facility] POCT-GLUCOSE METER 2020-07-21 23:04:00 Blake, [facility] POCT-GLUCOSE METER 2020-07-21 19:59:00 Blake, Diana Michelle [facility] POCT-GLUCOSE METER 2020-07-21 17:49:00 Blake, Diana [facility] HEMOGLOBIN AND HEMATOCRIT 2020-07-21 16:28:00 Blake, Diana [facility] POCT-GLUCOSE METER 2020-07-21 13:11:00 Blake, Diana Martinez [facility] POCT-GLUCOSE METER 2020-07-21 08:40:00 Blake, Diana [facility] PULMONARY FUNCTION - SCAN 2020-07-21 07:20:11 Provider, Default Scanning [facility] BASIC METABOLIC PANEL (7) 2020-07-21 04:44:00 Polo Clancy In [facility] MAGNESIUM 2020-07-21 04:44:00 Polo Clancy In [facility] CBC (HEMOGRAM ONLY) 2020-07-21 04:44:00 Blake, Diana [facility] CALCIUM, IONIZED 2020-07-21 04:44:00 Sadi Mckeon [facility] PHOSPHORUS 2020-07-21 04:44:00 Kavitha Mckeono A [facility] POCT-GLUCOSE METER 2020-07-20 21:19:00 Blake, Diana [facility] HEMOGLOBIN AND HEMATOCRIT 2020-07-20 20:26:00 Blake, Diana [facility] SARS-COV2/RT-PCR ([facility]) 2020-07-20 19:27:00 Hany Valdez [facility] POCT-GLUCOSE METER 2020-07-20 17:04:00 Blake, Diana [facility] VASCULAR DIAGRAM -SCAN 2020-07-20 13:52:46 Provider, Default Sca nning [facility] POCT-GLUCOSE METER 2020-07-20 12:27:00 Blake, iDana Martinez [facility] POCT-GLUCOSE METER 2020-07-20 10:31:00 Blake, [facility] XR CHEST 1 VIEW PORTABLE/BEDSIDE 2020-07-20 07:19:00 MarionArchie balbuena basim [facility] BASIC METABOLIC PANEL (7) 2020-07-20 04:44:00 Polo Clancy In I [facility] MAGNESIUM 2020-07-20 04:44:00 Polo Clancy In [facility] CBC (HEMOGRAM ONLY) 2020-07-20 04:44:00 Blake, [facility] CALCIUM, IONIZED 2020-07-20 04:44:00 Jerry Hooks [facility] B-TYPE NATRIURETIC FACTOR (BNP) 2020-07-20 04:44:00 Robby Hooks [facility] HEMOGLOBIN AND HEMATOCRIT 2020-07-20 04:44:00 Tim Johnson [facility] CREATINE KINASE (CK) 2020-07-20 04:44:00 [facility] PO[facility] 2020-07-19 21:19:00 Blake, [facility] POCT-GLUCOSE METER 2020-07-19 18:13:00 Blake, [facility] POCT-GLUCOSE METER 2020-07-19 16:23:00 Blake, [facility] HEMOGLOBIN AND HEMATOCRIT 2020-07-19 15:52:00 Tim Johnson [facility] PSEUDOANEURYSM GROIN DOPPLER LEFT 2020-07-19 12:30:00 Santosh Shepherd [facility] POCT-GLUCOSE METER 2020-07-19 11:11:00 Blake, [facility] HEMOGLOBIN AND HEMATOCRIT 2020-07-19 09:07:00 Alejandro Velez [facility] POCT-GLUCOSE METER 2020-07-19 07:15:00 Blake, [facility] MAGNESIUM 2020-07-19 04:06:00 Polo Clancy Courtney [facility] CALCIUM, IONIZED 2020-07-19 04:06:00 [facility] COMPREHENSIVE METABOLIC PANEL 2020-07-19 04:06:00 Ohoks [facility] PHOSPHORUS 2020-07-19 04:06:00 Jessee [facility] CBC W/PLT COUNT & AUTO DIFFERENTIAL 2020-07-19 04:06[facility]00 [facility] HEMOGLOBIN AND HEMATOCRIT 2020-07-18 20:21:00 Alejandro Velez [facility] BASIC METABOLIC PANEL (7) 2020-07-18 20:21:00 Herbert Maxwell [facility] TRANSFUSION SERVICE REPORT - SCAN 2020-07-18 18:32:08 Provid er, Default Scanning [facility] POCT-GLUCOSE METER 2020-07-18 17:41:00 [facility] POCT-ACT 2020-07-18 15:59:00 [facility] HEMOGLOBIN AND HEMATOCRIT 2020-07-18 15:26:00 [facility] POCT-ACT 2020-07-18 12:23:00 [facility] BLOOD GAS, ARTERIAL 2020-07-18 12:07:57 Santohs Bruno [facility] POCT-ACT 2020-07-18 12:04:00 [facility] POCT-ACT 2020-07-18 11:50:00 [facility] POCT-ACT 2020-07-18 11:39:00 [facility] PCI W/ IMPELLA MCR - IP PROC ONLY 2020-07-18 10:24:00 Santosh Remy [facility] MAGNESIUM 2020-07-18 05:00:00 Polo Clancy In [facility] CALCIUM, IONIZED 2020-07-18 05:00:00 [facility] COMPREHENSIVE METABOLIC PANEL 2020-07-18 05:00:00 Jessee [facility] PHOSPHORUS 2020-07-18 05:00:00 Jessee [facility] CBC W/PLT COUNT & AUTO DIFFERENTIAL 2020-07-18 05:00:00 [facility] POCT-GLUCOSE METER 2020-07-17 23:24:00 Juan Manuel Cardenas louann [facility] VASCULAR DIAGRAM -SCAN 2020-07-17 15:03:47 Provider, Ana aden [facility] ABORH, MANUAL 2020-07-17 12:55:00 Esme Rhodes [facility] POCT-GLUCOSE METER 2020-07-17 08:09:00 Juan Manuel Cardenas [facility] BASIC METABOLIC PANEL (7) 2020-07-17 06:56:00 Wilner Link [facility] MAGNESIUM 2020-07-17 06:56:00 Marky Link [facility] TYPE AND SCREEN, AUTOMATED 2020-07-17 06:56:00 Janice Barrios [facility] PHOSPHORUS 2020-07-17 04:47:00 Jes[facility] BASIC METABOLIC PANEL (7) 2020-07-17 04:47:00 Polo Clancy In I [facility] MAGNESIUM 2020-07-17 04:47:00 Polo Clancy In [facility] POCT-GLUCOSE METER 2020-07-16 22:48:00 Juan Manuel Cardenas [facility] POCT-GLUCOSE METER 2020-07-16 16:09:00 Juan Manuel Cardenas louann [facility] POCT-GLUCOSE METER 2020-07-16 11:07:00 [facility] 2020-07-16 06:08:00 [facility] BASIC METABOLIC PANEL (7) 2020-07-16 04:46:00 Polo Clancy In [facility] MAGNESIUM 2020-07-16 04:46:00 Julieth Polo In [facility] PHOSPHORUS 2020-07-16 04:46:00 Jessee [facility] CALCIUM, IONIZED 2020-07-16 04:46:00 [facility] W/[facility]T COUNT & AUTO DIFFERENTIAL 2020-07-16 04:46:00 [facility] POCT-GLUCOSE METER 2020-07-15 22:13:00 [facility] BASIC METABOLIC PANEL (7) 2020-07-15 16:28:00 Jerry oHoks [facility] MAGNESIUM 2020-07-15 16:28[facility]SE [facility] 2020-07-15 16:12:00 [facility] POCT-GLUCOSE METER 2020-07-15 11:11:00 [facility] [facility] POCT-GLUCOSE METER 2020-07-15 07:03:00 [facility] PLATELET AGGREGATION: FUNCTION SCREEN 2020-07-15 04:22:00 Jimy Gillis [facility] MAGNESIUM 2020-07-15 04:22:00 Julieth Polo In [facility] PHOSPHORUS 2020-07-15 04:22:00 [facility] 2020-07-15 04:22[facility]00 [facility] COMPREHENSIVE METABOLIC PANEL 2020-07-15 04:22:00 Jessee [facility] CBC W/PLT COUNT & AUTO DIFFERENTIAL 2020-07-15 04:22:00 Hitesh Hooks [facility] POCT-GLUCOSE METER 2020-07-14 21:16:00 Juan Manuel Cardenas louann [facility] BASIC METABOLIC PANEL (7) 2020-07-14 17:32:00 Jerry Hooks [facility] MAGNESIUM 2020-07-14 17:32:00 Jerry Hooks [facility] POCT-GLUCOSE METER 2020-07-14 16:18:00 Juan Manuel Cardenas louann [facility] BLOOD GAS, ARTERIAL 2020-07-14 13:09:00 Jimy Fitzgerald [facility] LUNG VOLUMES 2020-07-14 12:39:00 Js Alvarez [facility] BEDSIDE SPIROMETRY 2020-07-14 12:39:00 Antonio Js [facility] DLCO (SINGLE BREATH DIFFUSION) 2020-07-14 12:39:00 Roberto Carlos Alvarez [facility] BASIC METABOLIC PANEL (7) 2020-07-14 05:17:00 Polo Clancy In [facility] MAGNESIUM 2020-07-14 05:17:00 Polo Clancy In [facility] PHOSPHORUS 2020-07-14 05:17:00 Jessee [facility] OXYGEN SATURATION, MEASURED 2020-07-14 05:17:00 Santosh Bruno [facility] CBC W/PLT COUNT & AUTO DIFFERENTIAL 2020-07-14 05:17:00 Santosh Martinez [facility] POCT-GLUCOSE METER 2020-07-13 21:06:00 Juan Manuel Cardenas [facility] PV ARTERIAL PAUL UNILATERAL 2020-07-13 17:24:00 Jimy Fitzgerald [facility] BASIC METABOLIC PANEL (7) 2020-07-13 16:28:00 Jerry Hooks [facility] MAGNESIUM 2020-07-13 16:28:00 Jerry Hooks [facility] POCT-GLUCOSE METER 2020-07-13 16:27:00 Juan Manuel Cardenas [facility] ARTERIAL DOPPLER LEGS BILATERAL 2020-07-13 13:00:00 AmilcarEris [facility] CAROTID DOPPLER BILATERAL 2020-07-13 13:00:00 AmilcarJimy [facility] VEIN MAPPING LEGS BILATERAL 2020-07-13 13:00:00 AmilcarJimy [facility] SARS-COV2/RT-PCR ([facility]) 2020-07-13 12:11:00 Hany Valdez [facility] POCT-GLUCOSE METER 2020-07-13 11:02:00 [facility] POCT-GLUCOSE METER 2020-07-13 07:09:00 [facility] OXYGEN SATURATION, MEASURED 2020-07-13 03:51:00 Santosh Bruno [facility] MAGNESIUM 2020-07-13 03:46:00 [facility] PHOSPH[facility]US 2020-07-13 03:46:00 Tj Cleaning [facility] CALCIUM, IONIZED 2020-07-13 03:46:00 [facility] COMPREHENSIVE METABOLIC PANEL 2020-07-13 03:46:00 [facility] CBC W/PLT COUNT & AUTO DIFFERENTIAL 2020-07-13 03:46:00 Hitesh Hooks [facility] POCT-GLUCOSE METER 2020-07-12 22:37:00 [facility] POCT-GLUCOSE METER 2020-07-12 16:21:00 [facility] OXYGEN SATURATION, MEASURED 2020-07-12 15:32:00 Freddy Cook [facility] BASIC METABOLIC PANEL (7) 2020-07-12 15:31:00 Tj Cleaning jerry [facility] MAGNESIUM 2020-07-12 15:31:00 [place] [facility] PHOSPHORUS 2020-07-12 15:31:00 [place], Usetyreln [facility] POCT-GLUCOSE METER 2020-07-12 11:01:00 Juan Manuel Cardenas [facility] BASIC METABOLIC PANEL (7) 2020-07-12 10:35:00 [place] Ther jerry [facility] MAGNESIUM 2020-07-12 10:35:00 [place], Usetyreln [facility] PHOSPHORUS 2020-07-12 10:35:00 [place], Uselyn [facility] PLATELET AGGREGATION: FUNCTION SCREEN 2020-07-12 10:35:00 Jimy Gillis [facility] CALCIUM, IONIZED 2020-07-12 03:35:00 [facility] COMPREHENSIVE METABOLIC PANEL 2020-07-12 03:35:00 Jessee [facility] PHOSPHORUS 2020-07-12 03:35:00 [facility] CBC W/PLT COUNT & AUTO DIFFERENTIAL 2020-07-12 03:35:00 [facility] BASIC METABOLIC PANEL (7) 2020-07-12 01:27:00 [place] Ther jerry [facility] MAGNESIUM 2020-07-12 01:27:00 Tj Cleaning [facility] PHOSPHORUS 2020-07-12 01:27:00 Jam Cleaningn [facility] POCT-GLUCOSE METER 2020-07-11 21:16:00 Juan Manuel Cardenas [facility] POCT-GLUCOSE METER 2020-07-11 16:51:00 Abhijeet Chase [facility] POCT-GLUCOSE METER 2020-07-11 16:16:00 Abhijeet Chase [facility] BASIC METABOLIC PANEL (7) 2020-07-11 16:14:00 [place], Uselyn Ther jerry [facility] MAGNESIUM 2020-07-11 16:14:00 [place], Uselyn [facility] PHOSPHORUS 2020-07-11 16:14:00 [place], Uselyn [facility] POCT-GLUCOSE METER 2020-07-11 10:49:00 Abhijeet Chase [facility] BASIC METABOLIC PANEL (7) 2020-07-11 09:53:00 [place], Uselyn Ther jerry [facility] MAGNESIUM 2020-07-11 09:53:00 [place], Uselyn [facility] PHOSPHORUS 2020-07-11 09:53:00 [place], Uselyn [facility] POCT-GLUCOSE METER 2020-07-11 07:07:00 Abhijeet Chase [facility] BASIC METABOLIC PANEL (7) 2020-07-11 03:52:00 [place], Uselyn Ther [facility] MAGNESIUM 2020-07-11 03:52:00 [place], Uselyn [facility] PHOSPHORUS 2020-07-11 03:52:00 [place], Uselyn [facility] CALCIUM, IONIZED 2020-07-11 03:52:00 Jessee [facility] COMPREHENSIVE METABOLIC PANEL 2020-07-11 03:52:00 Jessee [facility] CBC W/PLT COUNT & AUTO DIFFERENTIAL 2020-07-11 03:52:00 [facility] BASIC METABOLIC PANEL (7) 2020-07-10 16:58:00 [place], Uselyn Ther [facility] MAGNESIUM 2020-07-10 16:58:00 [place], Uselyn [facility] PHOSPHORUS 2020-07-10 16:58:00 [place], Uselyn [facility] BLOOD GAS, VENOUS 2020-07-10 16:58:00 Jessee [facility] POCT-GLUCOSE METER 2020-07-10 16:36:00 Abhijeet Chase [facility] POCT-GLUCOSE METER 2020-07-10 11:08:00 Abhijeet Chase [facility] BASIC METABOLIC PANEL (7) 2020-07-10 08:42:00 Tj Cleaning jerry [facility] MAGNESIUM 2020-07-10 08:42:00 Tj Cleaning Tressa [facility] PHOSPHORUS 2020-07-10 08:42:00 Jam Cleaningn [facility] POCT-GLUCOSE METER 2020-07-10 07:31:00 Abhijeet Chase [facility] CBC W/PLT COUNT & AUTO DIFFERENTIAL 2020-07-10 03:08:00 Marky Ron [facility] MAGNESIUM 2020-07-10 03:05:00 Tj Cleaning [facility] PHOSPHORUS 2020-07-10 03:05:00 Tj Cleaning [facility] BASIC METABOLIC PANEL (7) 2020-07-10 03:05:00 Tj Cleaning Ther jerry [facility] POCT-GLUCOSE METER 2020-07-09 22:09:00 Abhijeet Chase [facility] BASIC METABOLIC PANEL (7) 2020-07-09 17:53:00 Tj Cleaning Ther jerry [facility] MAGNESIUM 2020-07-09 17:53:00 Tj Cleaning [facility] PHOSPHORUS 2020-07-09 17:53:00 Tj Cleaning [facility] POCT-GLUCOSE METER 2020-07-09 16:07:00 Abhijeet Chase [facility] POCT-GLUCOSE METER 2020-07-09 11:18:00 Abhijeet Chase [facility] POCT-GLUCOSE METER 2020-07-09 07:28:00 Abhijeet Chase [facility] POTASSIUM-STAT LAB 2020-07-09 06:00:00 Thomas Renaldo Fulton [facility] BASIC METABOLIC PANEL (7) 2020-07-09 02:58:00 Tj Cleaning Ther [facility] MAGNESIUM 2020-07-09 02:58:00 Tj Cleaning [facility] PHOSPHORUS 2020-07-09 02:58:00 Tj Cleaning [facility] CBC W/PLT COUNT & AUTO DIFFERENTIAL 2020-07-09 02:58:00 [facility] POCT-GLUCOSE METER 2020-07-08 22:51:00 Abhijeet Chase [facility] BASIC METABOLIC PANEL (7) 2020-07-08 16:05:00 Tj Cleaning [facility] MAGNESIUM 2020-07-08 16:05:00 Tj Cleaning [facility] PHOSPHORUS 2020-07-08 16:05:00 Tj Cleaning [facility] POCT-GLUCOSE METER 2020-07-08 16:00:00 Abhijeet Chase [facility] POCT-GLUCOSE METER 2020-07-08 10:57:00 Abhijeet Chase [facility] POCT-GLUCOSE METER 2020-07-08 06:43:00 Abhijeet Chase [facility] BASIC METABOLIC PANEL (7) 2020-07-08 04:30:00 Polo Clancy In [facility] MAGNESIUM 2020-07-08 04:30:00 Polo Clancy In [facility] PHOSPHORUS 2020-07-08 04:30:00 Tj Cleaning [facility] OXYGEN SATURATION, MEASURED 2020-07-08 04:30:00 Tj Cleaning Th [facility] CBC W/PLT COUNT & AUTO DIFFERENTIAL 2020-07-08 04:30:00 Nicole [facility] OXYGEN SATURATION, MEASURED 2020-07-08 00:21:00 Tj Cleaning Th [facility] BASIC METABOLIC PANEL (7) 2020-07-08 00:16:00 Herbert Maxwell [facility] CBC (HEMOGRAM ONLY) 2020-07-08 00:16:00 Herbert Maxwell [facility] MAGNESIUM 2020-07-08 00:16:00 Tj Cleaning [facility] CALCIUM, IONIZED 2020-07-08 00:16:00 Tj Cleaning [facility] PHOSPHORUS 2020-07-08 00:16:00 Tj Cleaning [facility] CBC W/PLT COUNT & AUTO DIFFERENTIAL 2020-07-08 00:16:00 Nicole Cleaning [facility] ECG 12-LEAD 2020-07-08 00:11:08 Tj Cleaning [facility] XR CHEST 1 VIEW PORTABLE/BEDSIDE 2020-07-08 00:09:00 Germania Cleaning [facility] L CATH & PCI 2020-07-07 12:30:00 Santosh Bruno [facility] POCT-GLUCOSE METER 2020-07-07 12:04:00 Abhijeet Chase [facility] RHYTHM STRIP - SCAN 2020-07-07 12:01:26 Provider, Ana joya [facility] POCT-GLUCOSE METER 2020-07-07 06:54:00 Abhijeet Chase [facility] BASIC METABOLIC PANEL (7) 2020-07-07 04:29:00 Polo Clancy In [facility] MAGNESIUM 2020-07-07 04:29:00 Polo Clancy In [facility] POCT-GLUCOSE METER 2020-07-06 21:34:00 Abhijeet Chase [facility] POCT-GLUCOSE METER 2020-07-06 16:58:00 Abhijeet Chase [facility] XR CHEST 1 VIEW PORTABLE/BEDSIDE 2020-07-06 14:55:00 Sadi Mckeon [facility] SARS-COV2/RT-PCR ([facility]) 2020-07-06 12:13:00 Hany Valdez [facility] POCT-GLUCOSE METER 2020-07-06 11:42:00 Abhijeet Chase ran [facility] POCT-GLUCOSE METER 2020-07-06 07:29:00 Abhijeet Chase ran [facility] BASIC METABOLIC PANEL (7) 2020-07-06 05:21:00 Polo Clancy In [facility] MAGNESIUM 2020-07-06 05:21:00 Polo Clancy In [facility] B-TYPE NATRIURETIC FACTOR (BNP) 2020-07-06 05:21:00 Lela Mckeon [facility] PHOSPHORUS 2020-07-06 05:21:00 Sadi Mckeon [facility] CALCIUM, IONIZED 2020-07-06 05:21:00 Sadi Mckeon [facility] CBC W/PLT COUNT & AUTO DIFFERENTIAL 2020-07-06 05:21:00 Sadi Fulton [facility] POCT-GLUCOSE METER 2020-07-05 16:36:00 Abhijeet Chase ran [facility] POCT-GLUCOSE METER 2020-07-05 11:30:00 Abhijeet Chase ran [facility] BASIC METABOLIC PANEL (7) 2020-07-05 10:16:00 Polo Clancy In [facility] MAGNESIUM 2020-07-05 10:16:00 Polo Clancy In [facility] POCT-GLUCOSE METER 2020-07-05 07:45:00 Abhijeet Chase ran [facility] POCT-GLUCOSE METER 2020-07-04 21:10:00 Abhijeet Chase ran [facility] POCT-GLUCOSE METER 2020-07-04 16:30:00 Polo Clancy In [facility] POCT-GLUCOSE METER 2020-07-04 11:59:00 Reena Clancyg In [facility] POCT-GLUCOSE METER 2020-07-04 06:53:00 Polo Clancy In [facility] BASIC METABOLIC PANEL (7) 2020-07-04 05:12:00 Polo Clancy In [facility] MAGNESIUM 2020-07-04 05:12:00 Polo Clancy In [facility] CALCIUM, IONIZED 2020-07-04 05:12:00 Sadi Mckeon [facility] PHOSPHORUS 2020-07-04 05:12:00 Sadi Mckeon [facility] CBC W/PLT COUNT & AUTO DIFFERENTIAL 2020-07-04 05:12:00 Sadi Fulton [facility] POCT-GLUCOSE METER 2020-07-03 21:07:00 Polo Clancy In [facility] POCT-GLUCOSE METER 2020-07-03 16:21:00 Polo Clancy In [facility] BLOOD GAS, VENOUS 2020-07-03 13:02:00 Polo Clancy In [facility] POCT-GLUCOSE METER 2020-07-03 11:48:00 Polo Clancy In [facility] POCT-GLUCOSE METER 2020-07-03 07:32:00 Polo Clancy In [facility] BASIC METABOLIC PANEL (7) 2020-07-03 05:11:00 Polo Clancy In [facility] MAGNESIUM 2020-07-03 05:11:00 Polo Clancy In [facility] B-TYPE NATRIURETIC FACTOR (BNP) 2020-07-03 05:11:00 Robby Hooks [facility] POCT-GLUCOSE METER 2020-07-02 21:24:00 Polo Clancy In [facility] POCT-GLUCOSE METER 2020-07-02 16:19:00 Polo Clancy In [facility] POCT-GLUCOSE METER 2020-07-02 11:23:00 Polo Clancy In [facility] POCT-GLUCOSE METER 2020-07-02 07:52:00 Polo Clancy In [facility] BASIC METABOLIC PANEL (7) 2020-07-02 04:37:00 Polo Clancy In [facility] MAGNESIUM 2020-07-02 04:37:00 Reena Clancyg In [facility] CALCIUM, IONIZED 2020-07-02 04:37:00 [facility] 2020-07-01 19:54:00 Reena Clancyg In [facility] POCT-GLUCOSE METER 2020-07-01 16:12:00 Reena Clancyg In [facility] POCT-GLUCOSE METER 2020-07-01 11:03:00 Polo Clancy In [facility] POCT-GLUCOSE METER 2020-07-01 08:21:00 Polo Clancy In [facility] BLOOD GAS, ARTERIAL 2020-07-01 06:09:00 Napoleon Delarosa [facility] MAGNESIUM 2020-07-01 04:55:00 Polo Clancy In [facility] CALCIUM, IONIZED 2020-07-01 04:55:00 Jessee [facility] COMPREHENSIVE METABOLIC PANEL 2020-07-01 04:55[facility]-07-01 04:55:00 Jessee [facility] BLOOD GAS, VENOUS 2020-07-01 04:55:00 Polo Clancy In [facility] CBC W/PLT COUNT & AUTO DIFFERENTIAL 2020-07-01 04:55[facility]00 [facility]UCOSE METER 2020-06-30 22:04:00 Polo Clancy In [facility] POCT-GLUCOSE METER 2020-06-30 17:01:00 Reena Clancyg In [facility] POCT-GLUCOSE METER 2020-06-30 12:03:00 Reena Clancyg In [facility] POCT-GLUCOSE METER 2020-06-30 11:16:00 Polo Clancy In [facility] XR CHEST 1 VIEW PORTABLE/BEDSIDE 2020-06-30 10:11:00 Radha Hooks [facility] POCT-GLUCOSE METER 2020-06-30 07:24:00 Polo Clancy In [facility] BASIC METABOLIC PANEL (7) 2020-06-30 04:01:00 Polo Clancy In [facility] MAGNESIUM 2020-06-30 04:01:00 Polo Clancy In [facility] CALCIUM, IONIZED 2020-06-30 04:01:00 Sadi Mckeon [facility] B-TYPE NATRIURETIC FACTOR (BNP) 2020-06-30 04:01:00 Lela Mckeon [facility] PHOSPHORUS 2020-06-30 04:01:00 Sadi Mckeon [facility] CBC W/PLT COUNT & AUTO DIFFERENTIAL 2020-06-30 04:01:00 Sadi Fulton [facility] POCT-GLUCOSE METER 2020-06-29 20:59:00 Polo Clancy In [facility] NM LUNG SCAN (V/Q) 2020-06-29 16:04:00 Polo Clancy In [facility] BLOOD GAS, ARTERIAL 2020-06-29 14:22:00 Polo Clancy In [facility] SARS-COV2/RT-PCR ([facility]) 2020-06-29 12:48:00 Hany Valdez [facility] POCT-GLUCOSE METER 2020-06-29 11:07:00 Polo Clancy In [facility] KETONE, BLOOD 2020-06-29 08:07:00 Polo Clancy In [facility] INSULIN, FASTING 2020-06-29 08:06:00 Anika Singeru [facility] BASIC METABOLIC PANEL (7) 2020-06-29 08:06:00 Polo Clancy In [facility] LACTIC ACID, VENOUS 2020-06-29 08:06:00 Polo Clancy In [facility] HEPATIC FUNCTION PANEL 2020-06-29 08:06:00 Polo Clancy In [facility] INSULIN-LIKE GROWTH FACTOR 2020-06-29 08:05:00 Polo Clancy In [facility] GROWTH HORMONE 2020-06-29 08:05:00 Polo Clancy In [facility] CORTISOL 2020-06-29 08:05:00 Polo Clancy In [facility] C-PEPTIDE 2020-06-29 08:04:00 Sandra Singer [facility] POCT-GLUCOSE METER 2020-06-29 07:54:00 Polo Clancy In [facility] POCT-GLUCOSE METER 2020-06-29 07:25:00 Polo Clancy In [facility] BASIC METABOLIC PANEL (7) 2020-06-29 04:56:00 Polo Clancy In [facility] MAGNESIUM 2020-06-29 04:56:00 Polo Clancy In [facility] HEMOGLOBIN A1C 2020-06-29 04:56:00 Polo Clancy In [facility] POCT-GLUCOSE METER 2020-06-28 21:11:00 Polo Clancy In [facility] POCT-GLUCOSE METER 2020-06-28 15:42:00 Reena Clancyg In [facility] POCT-GLUCOSE METER 2020-06-28 11:41:00 Polo Clancy In [facility] POCT-GLUCOSE METER 2020-06-28 08:10:00 Reena Clancyg In [facility] POCT-GLUCOSE METER 2020-06-28 07:31:00 Reena Clancyg In [facility] POCT-GLUCOSE METER 2020-06-28 06:23:00 Yojana Grossman [facility] XR CHEST 1 VIEW PORTABLE/BEDSIDE 2020-06-28 05:08:00 Radha Hooks [facility] BASIC METABOLIC PANEL (7) 2020-06-28 04:55:00 Beatriz León [facility] MAGNESIUM 2020-06-28 04:55:00 Mau [facility] PHOSPHORUS 2020-06-28 04:55:00 [facility]geta [facility] CALCI[facility], IONIZED 2020-06-28 04:55:00 Serleanne Mulugeta [facility] B-TYPE NATRIURETIC FACTOR (BNP) 2020-06-28 04:55:00 Lela Mckeon [facility] COMPREHENSIVE METABOLIC PANEL 2020-06-28 04:55:00 Jerry Hooks [facility] CBC W/PLT COUNT & AUTO DIFFERENTIAL 2020-06-28 04:55:00 Mau [facility] POCT-GLUCOSE METER 2020-06-28 04:08:00 Chauncey [facility] POCT-GLUCOSE METER 2020-06-27 22:41:00 Chauncey [facility] POCT-GLUCOSE METER 2020-06-27 16:30:00 Chauncey [facility] POCT-GLUCOSE METER 2020-06-27 11:40:00 Chauncey [facility] POCT-GLUCOSE METER 2020-06-27 10:25:00 Chauncey [facility] POCT-GLUCOSE METER 2020-06-27 08:23:00 Chauncey [facility] POCT-GLUCOSE METER 2020-06-27 07:35:00 Chauncey [facility] POCT-GLUCOSE METER 2020-06-27 07:02:00 Chauncey [facility] BASIC METABOLIC PANEL (7) 2020-06-27 05:05:00 Mau Beatriz [facility] MAGNESIUM 2020-06-27 05:05:00 Mau [facility] PHOSPHORUS 2020-06-27 05:05:00 Sarika Mulugeta [facility] CALCIUM, IONIZED 2020-06-27 05:05:00 Serleanne [facility] CBC W/PLT COUNT & AUTO DIFFERENTIAL 2020-06-27 05:05:00 Mau [facility] POCT-GLUCOSE METER 2020-06-26 20:58:00 Chauncey, [facility] POCT-GLUCOSE METER 2020-06-26 16:40:00 Chauncey, [facility] POCT-GLUCOSE METER 2020-06-26 10:46:00 Chauncey, [facility] POCT-GLUCOSE METER 2020-06-26 09:35:00 Chauncey [facility] POCT-GLUCOSE METER 2020-06-26 08:55:00 Chauncey, [facility] BASIC METABOLIC PANEL (7) 2020-06-26 07:23:00 Mau Beatriz [facility] MAGNESIUM 2020-06-26 07:23:00 Mau [facility] PHOSPHORUS 2020-06-26 07:23:00 Serenio [facility] CALCIUM, IONIZED 2020-06-26 07:23:00 Serenio [facility] CBC W/PLT COUNT & AUTO DIFFERENTIAL 2020-06-26 07:23:00 Mau [facility] POCT-GLUCOSE METER 2020-06-26 06:55:00 Bishop, [facility] POCT-GLUCOSE METER 2020-06-25 20:57:00 Bishop, [facility] POCT-GLUCOSE METER 2020-06-25 16:36:00 Bishop, [facility] POCT-GLUCOSE METER 2020-06-25 11:43:00 Bishop, [facility] POCT-GLUCOSE METER 2020-06-25 06:55:00 Bishop, [facility] BASIC METABOLIC PANEL (7) 2020-06-25 06:14:00 Mau Beatriz [facility] MAGNESIUM 2020-06-25 06:14:00 [facility] 2020-06-25 06:14:00 Serleanne Mulugeta [facility] CALCIUM, IONIZED 2020-06-25 06:14:00 Serenilorin [facility] CBC W/PLT COUNT & AUTO DIFFERENTIAL 2020-06-25 06:14:00 Mau [facility] POCT-GLUCOSE METER 2020-06-24 21:08:00 Bishop, [facility] POCT-GLUCOSE METER 2020-06-24 16:30:00 Bishop, [facility] POCT-GLUCOSE METER 2020-06-24 11:37:00 Bishop, [facility] POCT-GLUCOSE METER 2020-06-24 07:21:00 Bishop, [facility] MAGNESIUM 2020-06-24 03:55:00 Mau [facility] PHOSPHORUS 2020-06-24 03:55:00 Serenilorin Mulugeta [facility] CALCIUM, IONIZED 2020-06-24 03:55:00 Serleanne [facility] COMPREHENSIVE METABOLIC PANEL 2020-06-24 03:55:00 Jerry Hooks [facility] B-TYPE NATRIURETIC FACTOR (BNP) 2020-06-24 03:55:00 Robby Hooks [facility] CBC W/PLT COUNT & AUTO DIFFERENTIAL 2020-06-24 03:55:00 Mau, [facility] POCT-GLUCOSE METER 2020-06-23 21:15:00 Bishop, [facility] POCT-GLUCOSE METER 2020-06-23 16:34:00 Yojana Grossman [facility] POCT-GLUCOSE METER 2020-06-23 11:09:00 Aime Dsouza [facility] POCT-GLUCOSE METER 2020-06-23 06:54:00 George Rockwell [facility] MAGNESIUM 2020-06-23 03:36:00 Mau [facility] COMPREHENSIVE METABOLIC PANEL 2020-06-23 03:36:00 HooksJerry [facility] PHOSPHORUS 2020-06-23 03:36:00 Ramiroleanne [facility] CALCIUM, IONIZED 2020-06-23 03:36:00 SerenilorinMulugeta [facility] CBC W/PLT COUNT & AUTO DIFFERENTIAL 2020-06-23 03:36:00 Mau [facility] POCT-GLUCOSE METER 2020-06-23 00:04:00 [facility] 2020-06-22 17:41:00 [facility] POCT-GLUCOSE METER 2020-06-22 12:13:00 [facility] IV CONTRAST 2020-06-22 10:30:00 Mau [facility] CT BRAIN WITHOUT IV CONTRAST 2020-06-22 10:30:00 Mau [facility] SPUTUM CULTURE + GRAM STAIN 2020-06-22 09:58:00 Mau [facility] 2D ECHO W/ DOPPLER (CW/PW/COLOR) 2020-06-22 07:43:08 Mau [facility] SARS-COV2/RT-PCR ([facility]) 2020-06-22 04:00:00 Ange Quijano [facility] TROPONIN I 2020-06-22 01:48:00 Meghana Hart [facility] BASIC METABOLIC PANEL (7) 2020-06-22 01:48:00 Beatriz León [facility] MAGNESIUM 2020-06-22 01:48:00 Mau [facility] LIPID PANEL 2020-06-22 01:48:00 [facility] IRON, TIBC, % SAT. (WITHOUT FERRITIN) 2020-06-22 01:48:00 [facility] FERRITIN 2020-06-22 01:48:00 [facility] LACTATE DEHYDROGENASE (LDH) 2020-06-22 01:48:00 [facility] HAPTOGLOBIN 2020-06-22 01:48:00 [facility] CBC W/PLT COUNT & AUTO DIFFERENTIAL 2020-06-22 01:48:00 [facility] ECG 12-LEAD 2020-06-22 00:03:19 Meghana Hart [facility] POCT-GLUCOSE METER 2020-06-21 23:44:00 George Rockwell [facility] US RENAL COMPLETE 2020-06-21 20:50:00 [facility] RAPID INFLUENZA A&B SCREEN 2020-06-21 18:19:00 MauBeatriz [facility] MRSA SCREEN 2020-06-21 18:15:00 [facility] RESPIRATORY PANEL SLHS 2020-06-21 18:15:00 [facility] WOUND CULTURE + GRAM STAIN 2020-06-21 18:15:00 Beatriz León [facility] BLOOD CULTURE 2020-06-21 17:35:00 [facility] PROTHROMBIN TIME/INR 2020-06-21 17:34:00 [facility] APTT 2020-06-21 17:34:00 [facility] FIBRINOGEN 2020-06-21 17:34:00 [facility] COMPREHENSIVE METABOLIC PANEL 2020-06-21 17:34:00 [facility] MAGNESIUM 2020-06-21 17:34:00 [facility] LACTIC ACID, VENOUS 2020-06-21 17:34:00 [facility] BLOOD GAS, ARTERIAL 2020-06-21 17:34:00 [facility] TSH/FREE T4 IF INDICATED 2020-06-21 17:34:00 [facility] PROCALCITONIN 2020-06-21 17:34:00 Mau [facility] CORTISOL 2020-06-21 17:34:00 [facility] B-TYPE NATRIURETIC FACTOR (BNP) 2020-06-21 17:34:00 [facility] TROPONIN I 2020-06-21 17:34:00 [facility] CREATINE KINASE (CK) 2020-06-21 17:34:00 [facility] CBC W/PLT COUNT & AUTO DIFFERENTIAL 2020-06-21 17:34:00 [facility] ECG 12-LEAD 2020-06-21 17:33:32 [facility] LEGIONELLA URINE ANTIGEN 2020-06-21 17:18:00 [facility] SODIUM, RANDOM URINE 2020-06-21 17:18:00 [facility] OSMOLALITY, URINE 2020-06-21 17:18:00 [facility] CREATININE, RANDOM URINE 2020-06-21 17:18:00 [facility] URINALYSIS W/ REFLEX URINE CULTURE 2020-06-21 17:18:00 [facility] 2020-06-21 16:25:00 [facility] XR CHEST 1 VIEW PORTABLE/BEDSIDE 2020-06-21 15:26:00 [facility] CT of abdomen and pelvis without contrast 2020-06-21 00:00:00 [facility] Measurement of post-voiding residual uri ne and/or bladder capacity by ultrasound, non-imaging 2020-04-04 19:08:00 [facility] ECHO TRANSESOPHAGEAL 2019-12-28 00:00:00 [facility] Complex cystometrogram (ie, calibrated e lectronic equipment); with voiding pressure studies (ie, bladder voiding pressure), any technique 2019-06-02 16:04:00 [facility] Voiding pressure studies, intra-abdomina l (ie, rectal, gastric, intraperitoneal) (List separately in addition to code for primary procedure) 2019-06-02 16:04:00 [facility] Complex uroflowmetry (eg, calibrated electronic equipment) 2 16:04:00 [facility] Electromyography studies (EMG) of anal o r urethral sphincter, other than needle, any technique 2019-06-02 16:04:00 [facility] Cystoscopy 2018-08-25 05:00:00 [facility] uroflowmetry 2018-03-30 05:00:00 Memmontse moser [place] Catheter replacement [facility] rmann Fusion<sup>1</sup> [facility] alis Prostate manipulation [facility] ermann Stent replacement [facility] nn Ablation [facility] Cataract surgery [facility] n Colonoscopy [facility] Operation [facility] PCI - Percutaneous coronary intervention [facility] Plan of Care Planned Activity Planned Date Details Comments Source Future Scheduled Test 2020-12-27 00:00:00 Hemoglobin A1c artie surement (procedure) [code = 18434036] [facility] Future Scheduled Test 2020-06-27 00:00:00 INFLUENZA VACCINE (#1) [code = INFLUENZA VACCINE (#1)] [facility] Future Scheduled Test 2020-05-27 00:00:00 INFLUENZA VACCINE [code = INFLUENZA VACCINE] [facility] Scheduled Test 2019-10-27 00:00:00 Medicare IPPE (WEL COME TO MEDICARE) [code = Medicare IPPE (WELCOME TO MEDICARE)] [facility] Future Scheduled Test 2009 00:00:00 65+ PNEUMOCOCCAL V ACCINE (1 of 1 - PPSV23) [code = 65+ PNEUMOCOCCAL VACCINE (1 of 1 - PPSV23)] [facility] Future Scheduled Test 2009 00:00:00 PNEUMOCOCCAL 65+ L OW/MEDIUM RISK (1 of 2 - PCV13) [code = PNEUMOCOCCAL 65+ LOW/MEDIUM RISK (1 of 2 - PCV13)] [facility] Future Scheduled Test 1994 00:00:00 COLONOSCOPY SCREEN ING [code = COLONOSCOPY SCREENING] [facility] Scheduled Test 1994 00:00:00 SHINGLES VACCINES (#1) [code = SHINGLES VACCINES (#1)] [facility] Scheduled Test 1954 00:00:00 DIABETIC EYE EXAM [code = DIABETIC EYE EXAM] [facility] Future Scheduled Test 1954 00:00:00 Diabetic foot exam ination (regime/therapy) [code = 002889434] [facility] ical [place] Future Scheduled Test 1954 00:00:00 Urine screening fo r protein (procedure) [code = 004973120] [facility] Future Scheduled Test 1944 00:00:00 Screening for taqueria gnant neoplasm of colon (procedure) [code = 053043768] [facility] En[facility] Start Date/Time End Date/Time Encounter Type Admission Type Attendi [facility] Facility Care Department Encounter ID Source 2020-04-07 05:12:00 Inpatient [facility] [id number] [facility] 2019-12-27 08:46:46 Outpatient MHSE MHSE [id number] [facility] 2019-11-10 10:41:00 Inpatient [facility] CAR 75 [id number] [facility] 2020-07-04 14:30:00 2020-07-04 14:30:00 Outpatient Kelechi Sibley [facility] [id number] 2020-06-21 08:44:00 2020-06-21 08:44:00 Registered Emergency Room 1 IBAN RAMOS [facility] [id number] I [facility] 2020-04-13 10:00:54 2020-04-20 15:36:00 Outpatient Fransisca Ferreira MHSE MHSE [id number] 2020-04-13 12:31:00 2020-04-13 10:00:00 Inpatient E MHSE MED [id number] [facility] 2020-04-07 05:12:00 2020-04-12 19:00:00 Outpatient Morales Tolbert [facility] [id number] 2020-04-04 14:15:00 2020-04-04 23:59:59 [facility] [id number] 2020-03-13 13:00:00 2020-03-13 13:00:00 Out[facility]ible[facility] [id number] 2020-03-01 00:00:00 2020-03-01 00:00:00 Orders Only D octor Unassigned, Ashby [facility] [id number] 2020-02-29 09:58:00 2020-02-29 23:59:00 Hospital Encounter [facility] Hailee [facility] ([facility] [id number] 2020-02-29 00:00:00 2020-02-29 00:00:00 Telephone [facility] [id number] 2020-02-29 00:00:00 2020-02-29 00:00:00 Nurse Triage Kena Arnold [facility] [id number] 2020-02-02 13:35:00 2020-02-02 23:59:00 Outpatient Teofilo Summers MHSE [facility] [id number] 2020-02-02 13:35:00 2020-02-02 13:35:00 Outpatient MHSE SE [id number] [facility] 2019-12-28 08:40:00 2019-12-28 08:40:00 Registered [facility] [id number] [facility] 2019-12-14 12:47:00 2019-12-14 12:47:00 Registered Clinic [facility] [id number] [facility] 2019-11-12 08:35:00 2019-11-12 11:01:00 Departed Emergency Room [facility] [id number] [facility] 2019-11-10 10:41:00 2019-11-11 12:00:00 Outpatient Mundo Vásquez [facility] [id number] 2019-10-16 16:35:00 2019-10-16 23:39:00 Outpatient Lissette Graham [facility] [id number] 2019-10-16 14:58:00 2019-10-16 14:58:00 Emergency E [facility] [id number] [facility] 2019-10-16 11:05:00 2019-10-16 14:53:00 Departed Emergency Room 1 RENAE MENDOZA [facility] [id number] [facility] 2019-10-05 23:28:00 2019-10-06 00:45:00 Departed Emergency Room [facility] [id number] [facility] 2019-08-05 23:06:00 2019-08-12 16:35:00 Discharged Inpatient 1 DORIS PERALES [facility] [id number] [facility] 2019-07-23 08:57:00 2019-07-23 23:59:00 [id number] 2019-06-11 17:49:00 2019-06-16 17:48:00 Discharged Inpatient 1 ROSALIE MEDINA [facility] [id number] [facility] 2019-06-02 11:15:00 2019-06-02 23:59:59 Outpatient Toñito Kelechi Harrisonal [facility] [id number] 2019-06-01 13:00:00 2019-06-01 23:59:59 Outpatient [facility] [id number] 2019-05-26 16:43:00 2019-05-28 12:59:00 Discharged Inpatient (obs) 1 ROSALIE MEDINA [facility] [id number] [facility] 2019-05-27 09:00:00 2019-05-27 23:59:59 Outpatient Kelechi Sibley [facility] [id number] 2019-05-25 13:40:00 2019-05-25 13:40:00 Outpatient Kelechi Sibley [facility] [id number] 2019-05-18 13:45:00 2019-05-18 23:59:59 Outpatient MHMG [facility] [id number] 2019-05-04 13:50:00 2019-05-04 13:50:00 Outpatient Kelechi Sibley [facility] [id number] 2019-05-04 11:30:00 2019-05-04 11:30:00 Outpatient MHMG [facility] [id number] 2019-04-23 19:41:00 2019-05-04 10:54:00 Discharged Inpatient 1 ROSALIE MEDINA [facility] [id number] [facility] 2019-04-21 14:00:00 2019-04-21 14:00:00 Outpatient VISIT, HARLAN SCHWARZ [facility] [id number] 2019-04-19 10:30:00 2019-04-19 23:59:59 Outpatient Santosh Sibleysom [place] [facility] [id number] 2019-02-08 22:29:00 2019-02-15 14:47:00 Discharged Inpatient 1 ROSALIE MEDINA [facility] [id number] [facility] 2019-01-05 22:50:00 2019-01-09 13:42:00 Discharged Inpatient 1 ROSALIE MEDINA [facility] [id number] [facility] 2018-12-30 13:58:00 2018-12-31 15:25:00 Discharged Inpatient (obs) 3 HAILEE MCGUIRE [facility] [id number] [facility] 2018-12-28 09:25:00 2018-12-28 23:59:00 Outpatient Mila Jones [facility]IP [facility] [id number] 2018-12-13 12:11:00 2018-12-15 13:01:00 Discharged Inpatient 1 RENAE SOLARES [facility] [id number] [facility] 2018-12-08 11:09:00 2018-12-08 11:09:00 Registered Surgical Day Care [facility] [id number] [facility] 2018-11-30 10:30:00 2018-11-30 23:59:59 Outpatient [facility]ible[facility] [id number] 2018-11-06 21:48:00 2018-11-07 15:53:00 Discharged Inpatient (obs) [facility] [id number] [facility] 2018-11-04 10:43:00 2018-11-05 23:59:59 Outpatient MG MG [id number] 2018-09-13 19:21:00 2018-09-16 12:23:00 Discharged Inpatient 1 ROSALIE MEDINA [facility] [id number] [facility] 2018-08-02 07:48:00 2018-08-05 14:08:00 Discharged Inpatient 3 HAILEE MCGUIRE [facility] [id number] [facility] 2017-12-04 18:00:00 2017-12-04 23:59:00 Outpatient Oleksandr Polanco SE MHSE [id number] 2017-04-23 14:07:00 2017-04-23 23:59:00 Outpatient Mila Jones HOIP HOIP [id number] 2016-06-24 08:46:00 2016-06-24 23:59:00 Outpatient Fadi Galeas SE [facility]SE [id number] 2016-06-19 09:37:00 2016-06-19 23:59:00 Outpatient GaleasFadi SE MHSE [id number] 2016-04-23 10:15:00 2016-04-23 23:59:00 Outpatient Monique Reed MHOIB MHOIB [id number] 2016-04-10 08:29:00 2016-04-10 23:59:00 Outpatient NicolasElida anderson Doduncan MHSE MHSE [id number] 2016-04-02 11:11:00 2016-04-02 23:59:00 Outpatient Guillermina Martínez MHHOIP MHHOIP [id number] 2016-03-28 06:32:00 2016-03-28 23:59:00 Outpatient Teofilo Summers MHSE MHSE [id number] 2016-03-06 09:34:00 2016-03-06 23:59:00 Outpatient Monique Reed MHOIB MHOIB [id number] Results Test Description Test Time Test Comments Results Result Comments Source CHEST SINGLE (PORTABLE) 2020-07-30 18:09:00 [place] [address] Patient Name: STEVE BENEDICT MR #: [id number] : 1945 Age/Sex: 74/M Req #: [id number] Adm Physician: Ordered by: IBAN RAMOS MD Report #: [id number] Location: ER Room/Bed: Procedure: [id number] DX/CHEST SINGLE (PORTABLE) Exam Date: 07/30/20 Exam Time: 1740 REPORT STATUS: Signed EXAMINATION: CHEST SINGLE (PORTABLE) INDICATION: CHF, COUGH COMPARISON: Chest radiograph 06-21-2020. CT chest 08-05-2019. FINDINGS: TUBES and LINES: None. LUNGS: Lungs are well inflated. There is focal linear nodular opacity in the right midlung and linear/patchy opacity in the left lower lung. PLEURA: No pleural effusion or pneumothorax. HEART AND MEDIASTINUM: The cardiomediastinal silhouette is unremarkable. BONES AND SOFT TISSUES: No acute osseous abnormality. Healing left-sided rib fractures. Partially visualized cervical spine fixation hardware. UPPER ABDOMEN: No free air under the diaphragm. IMPRESSION: Focal opacities in the right mid and left lower lungs may be infectious in the setting of cough. The right midlung opacity may represent underlying pulmonary nodule. Recommend chest CT or alternatively follow-up chest radiograph for further evaluation. Signed by: Dr. Jose Manuel Person MD on 07/30/2020 6:28 PM Dictated By: JOSE MANUEL PERSON MD 27 Transcribed By: ERAN on 07/30/201827 COPY TO: IBAN RAMOS MD POC-Glucose meter 2020-07-28 11:48:00 Test Item POC-Glucose Meter (test code = 1538) 203 mg/dL 70-110 H : Notified RN/MD: TESTED AT [address], [address]: Supervisor Pre Wave/Rail Specialist ID = [id number] for MARILU SORTO Lab Interpretation (test code = 70846-0) [facility] [id number] 11:48:00* Test Item Value Reference Range Interpretation Comments POC-GLUCOSE METER (BEAKER) (test code = 1538) 203 mg/dL 70-110 H : Notified RN/MD: TESTED AT [address], [address]: Supervisor Pre Wave/Rail Specialist ID = [id number] for MARILU SORTO POCT-GLUCOSE [id number] 08:46:00* Test Item Value Reference Range Interpretation Comments POC-GLUCOSE METER (BEAKER) (test code = 1538) 126 mg/dL 70-110 H : TESTED AT [facility] [address] [facility], [address]: Supervisor Pre Wave/Rail Specialist ID = [id number] for MONA PARKER Comprehensive metabolic [id number] 06:50:00* Test Item Value Reference Range Interpretation Comments Protein, Total (test code = 2885-2) 6.1 6.0- 8.3 gm/dL Albumin (test code = 81351-7) 3.8 g/dL 3.5-5 Alkaline Phosphatase (test code = 6768-6) 88 U/L 40-150 Total Bilirubin (test code = 1975-2) 0.8 mg/dL 0.2-1.2 Sodium (test code = 2951-2) 138 meq/L 136-145 Potassium (test code = 2823-3) 3.6 meq/L 3.5-5.1 Chloride (test code = 2075-0) 94 meq/L 98-107 L CO2 (test code = 8-9) 35 meq/L 22-29 H BUN (test code = 3094-0) 37 mg/dL 7-21 H Creatinine (test code = 2160-0) 1.54 mg/dL 0.57-1.25 H Glucose (test code = 2345-7) 173 mg/dL 70-105 H Calcium (test code = 27600-5) 8.3 mg/dL 8.4-10.2 L AST (test code = 1920-8) 14 U/L 5-34 ALT (test code = 1742-6) 35 U/L 6-55 EGFR (test code = 36744-1) 44 mL/min/1.73 sq m ESTIMATED GFR IS NOT ACCURATE CREATININE CLEARANCE IN PREDICTING GLOMERULAR FILTRATION RATE. ESTIMATED GFR IS NOT APPLICABLE FOR DIALYSIS PATIENTS. MARCO (test code = MARCO) Supervisor Pre Wave ID - MAYA Patricio Lab Interpretation (test code = 09052-7) [facility]normal [facility] 06:50:00* Test Item Value Reference Range Interpretation Comments Magnesium (test code = 21098-2) 1.9 mg/dL 1.6-2.6 MARCO (test code = MARCO) Supervisor Pre Wave ID - MAYA F Lab Interpretation (test code = 37365-3) Normal [facility] 06:50:00* Test Item Value Reference Range Interpretation Comments Phosphorus (test code = 2777-1) 2.3 mg/dL 2.3-4.7 MARCO (test code = MARCO) Supervisor Pre Wave ID Dawson TREJO F Lab Interpretation (test code = 39531-0) Normal [facility] [id number] 06:50:00* Test Item Value Reference Range Interpretation Comments PHOSPHORUS (BEAKER) (test code = 604) 2.3 mg/dL 2.3-4.7 Supervisor Pre Wave ID Dawson TREJO [id number] 06:50:00* Test Item Value Reference Range Interpretation Comments MAGNESIUM (BEAKER) (test code = 627) 1.9 mg/dL 1.6-2.6 Supervisor Pre Wave ID Dawson TREJO FCOMPREHENSIVE METABOLIC [id number] 06:50:00* Test Item Value Reference Range Interpretation Comments TOTAL PROTEIN (BEAKER) (test code = 770) 6.1 gm/dL 6.0-8.3 ALBUMIN (BEAKER) (test code = 1145) 3.8 g/dL 3.5-5.0 ALKALINE PHOSPHATASE (BEAKER) (test code = 346) 88 U/L 40-150 BILIRUBIN TOTAL (BEAKER) (test code = 377) 0.8 mg/dL 0.2-1.2 SODIUM (BEAKER) (test code = 381) 138 meq/L 136-145 POTASSIUM (BEAKER) (test code = 379) 3.6 meq/L 3.5-5.1 CHLORIDE (BEAKER) (test code = 382) 94 meq/L 98-107 L CO2 (BEAKER) (test code = 355) 35 meq/L 22-29 H BLOOD UREA NITROGEN (BEAKER) (test code = 354) 37 mg/dL 7-21 H CREATININE (BEAKER) (test code = 358) 1.54 mg/dL 0.57-1.25 H GLUCOSE RANDOM (BEAKER) (test code = 652) 173 mg/dL 70-105 H CALCIUM (BEAKER) (test code = 697) 8.3 mg/dL 8.4-10.2 L AST (SGOT) (BEAKER) (test code = 353) 14 U/L 5-34 ALT (SGPT) (BEAKER) (test code = 347) 35 U/L 6-55 EGFR (BEAKER) (test code = 1092) 44 mL/min/1.73 sq m ESTIMATED GFR IS NOT ACCURATE CREATININE CLEARANCE IN PREDICTING GLOMERULAR FILTRATION RATE. ESTIMATED GFR IS NOT APPLICABLE FOR DIALYSIS PATIENTS. Supervisor Pre Wave ID - MAYA [facility] with platelet count + automated [id number] 06:35:00* Test Item Value Reference Range Interpretation Comments WBC (test code = 6690-2) 9.3 3.5- 10.5 K/L RBC (test code = 789-8) 3.33 4.63- 6.08 M/L L MCHC (test code = 786-4) 30.0 32.3- 36.5 GM/DL L Hematocrit (test code = 4544-3) 34.3 % 40.1-51 L MCV (test code = 787-2) 103.0 fL 79-92.2 H MCH (test code = 785-6) 30.9 pg 25.7-32.2 RDW (test code = 788-0) 17.9 % 11.6-14.4 H Platelets (test code = 777-3) 128 150- 450 K/CU MM L MPV (test code = 17453-3) 11.0 fL 9.4-12.4 nRBC (test code = 413) 2 0- 0 /100 WBC H % Neutros (test code = 429) 81 % % Lymphs (test code = 430) 9 % % Monos (test code = 431) 8 % % Eos (test code = 432) 1 % % Baso (test code = 437) 0 % # Neutros (test code = 670) 7.47 1.78- 5.38 K/L H # Lymphs (test code = 414) 0.79 1.32- 3.57 K/L L # Monos (test code = 415) 0.70 0.30- 0.82 K/L # Eos (test code = 416) 0.12 0.04- 0.54 K/L # Baso (test code = 417) 0.02 0.01- 0.08 K/L Immature Granulocytes-Relative (test code = 2801) 2 % 0-1 H Lab Interpretation (test code = 40679-8) Abnormal [facility] & AUTO [id number] 06:35:00* Test Item Value Reference Range Interpretation Comments WHITE BLOOD CELL COUNT (BEAKER) (test code = 775) 9.3 K/ L 3.5- 10.5 RED BLOOD CELL COUNT (BEAKER) (test code = 761) 3.33 M/ L 4.63-6 .08 L HEMOGLOBIN (BEAKER) (test code = 410) 10.3 GM/DL 13.7-17.5 L HEMATOCRIT (BEAKER) (test code = 411) 34.3 % 40.1-51.0 L MEAN CORPUSCULAR VOLUME (BEAKER) (test code = 753) 103.0 fL 79. 0-92.2 H MEAN CORPUSCULAR HEMOGLOBIN (BEAKER) (test code = 751) 30.9 pg 25.7-32.2 MEAN CORPUSCULAR HEMOGLOBIN CONC (BEAKER) (test code = 752) 30.0 GM/DL 32.3-36.5 L RED CELL DISTRIBUTION WIDTH (BEAKER) (test code = 412) 17.9 % 11.6-14.4 H PLATELET COUNT (BEAKER) (test code = 756) 128 K/CU MM 150-450 L MEAN PLATELET VOLUME (BEAKER) (test code = 754) 11.0 fL 9.4-12 .4 NUCLEATED RED BLOOD CELLS (BEAKER) (test code = 413) 2 /100 WBC 0 -0 H NEUTROPHILS RELATIVE PERCENT (BEAKER) (test code = 429) 81 % LYMPHOCYTES RELATIVE PERCENT (BEAKER) (test code = 430) 9 % MONOCYTES RELATIVE PERCENT (BEAKER) (test code = 431) 8 % EOSINOPHILS RELATIVE PERCENT (BEAKER) (test code = 432) 1 % BASOPHILS RELATIVE PERCENT (BEAKER) (test code = 437) 0 % NEUTROPHILS ABSOLUTE COUNT (BEAKER) (test code = 670) 7.47 K/ L 1.78-5.38 H LYMPHOCYTES ABSOLUTE COUNT (BEAKER) (test code = 414) 0.79 K/ L 1.32-3.57 L MONOCYTES ABSOLUTE COUNT (BEAKER) (test code = 415) 0.70 K/ L 0. 30-0.82 EOSINOPHILS ABSOLUTE COUNT (BEAKER) (test code = 416) 0.12 K/ L 0.04-0.54 BASOPHILS ABSOLUTE COUNT (BEAKER) (test code = 417) 0.02 K/ L 0. 01-0.08 IMMATURE GRANULOCYTES-RELATIVE PERCENT (BEAKER) (test code = 2801) 2 % 0-1 H Calcium, [id number] 05:37:00* Test Item Value Reference Range Interpretation Comments Calcium, Ion (test code = 1994-3) 1.13 mmol/L 1.12-1.27 pH, Blood (test code = 87281-5) 7.35 [facility], [id number] 05:37:00* Test Item Value Reference Range Interpretation Comments CALCIUM IONIZED (BEAKER) (test code = 698) 1.13 mmol/L 1.12-1.27 PH, BLOOD (BEAKER) (test code = 1810) 7.35 POCT-GLUCOSE [id number] 22:54:00* Test Item Value Reference Range Interpretation Comments POC-GLUCOSE METER (BEAKER) (test code = 1538) 239 mg/dL 70-110 H : TESTED AT [address], [id number]: Supervisor Pre Wave[employer]Rail Specialist ID = [id number] for Mark Pérez POCT-GLUCOSE [id number] 18:00:00* Test Item Value Reference Range Interpretation Comments POC-GLUCOSE METER (BEAKER) (test code = 1538) 250 mg/dL 70-110 H : Notified RN/MD: TESTED AT [address], [id number]: Supervisor Pre [employer]Rail Specialist ID = [id number] for MACARIO, IANNTELL POCT-GLUCOSE [id number] 13:23:00* Test Item Value Reference Range Interpretation Comments POC-GLUCOSE METER (BEAKER) (test code = 1538) 244 mg/dL 70-110 H : Notified RN/MD: TESTED AT [address], [address]: Supervisor Pre Wave/Rail Specialist ID = [id number] for SORTO, SHAWNTELL POCT-GLUCOSE [id number] 09:10:00* Test Item Value Reference Range Interpretation Comments POC-GLUCOSE METER (BEAKER) (test code = 1538) 101 mg/dL 70-110 : TESTED AT [address], [address]: Supervisor Pre Wave/Rail Specialist ID = [id number] for SORTO, SHAWNTELL Basic Metabolic [id number] 06:14:00* Test Item Value Reference Range Interpretation Comments Sodium (test code = 2951-2) 139 meq/L 136-145 Potassium (test code = 2823-3) 3.6 meq/L 3.5-5.1 Chloride (test code = 2075-0) 95 meq/L 98-107 L CO2 (test code = 8-9) 37 meq/L 22-29 H BUN (test code = 3094-0) 33 mg/dL 7-21 H Creatinine (test code = 2160-0) 1.54 mg/dL 0.57-1.25 H Glucose (test code = 2345-7) 199 mg/dL 70-105 H Calcium (test code = 77032-4) 8.0 mg/dL 8.4-10.2 L EGFR (test code = 13537-3) 44 mL/min/1.73 sq m ESTIMATED GFR IS NOT ACCURATE CREATININE CLEARANCE IN PREDICTING GLOMERULAR FILTRATION RATE. ESTIMATED GFR IS NOT APPLICABLE FOR DIALYSIS PATIENTS. MARCO (test code = MARCO) Supervisor Pre Wave ID - EDASI Lab Interpretation (test code = 15405-7) [id number] 06:14:00* Test Item Value Reference Range Interpretation Comments PHOSPHORUS (BEAKER) (test code = 604) 2.8 mg/dL 2.3-4.7 Supervisor Pre Wave ID - [id number] 06:14:00* Test Item Value Reference Range Interpretation Comments MAGNESIUM (BEAKER) (test code = 627) 2.0 mg/dL 1.6-2.6 Supervisor Pre Wave ID - EDASIBASIC METABOLIC [id number] 06:14:00* Test Item Value Reference Range Interpretation Comments SODIUM (BEAKER) (test code = 381) 139 meq/L 136-145 POTASSIUM (BEAKER) (test code = 379) 3.6 meq/L 3.5-5.1 CHLORIDE (BEAKER) (test code = 382) 95 meq/L 98-107 L CO2 (BEAKER) (test code = 355) 37 meq/L 22-29 H BLOOD UREA NITROGEN (BEAKER) (test code = 354) 33 mg/dL 7-21 H CREATININE (BEAKER) (test code = 358) 1.54 mg/dL 0.57-1.25 H GLUCOSE RANDOM (BEAKER) (test code = 652) 199 mg/dL 70-105 H CALCIUM (BEAKER) (test code = 697) 8.0 mg/dL 8.4-10.2 L EGFR (BEAKER) (test code = 1092) 44 mL/min/1.73 sq m ESTIMATED GFR IS NOT ACCURATE CREATININE CLEARANCE IN PREDICTING GLOMERULAR FILTRATION RATE. ESTIMATED GFR IS NOT APPLICABLE FOR DIALYSIS PATIENTS. Supervisor Pre Wave ID - EDASICBC (Hemogram only)2020-07-27 05:55:00* Test Item Value Reference Range Interpretation Comments WBC (test code = 6690-2) 6.4 3.5- 10.5 K/L RBC (test code = 789-8) 3.05 4.63- 6.08 M/L L MCHC (test code = 786-4) 29.8 32.3- 36.5 GM/DL L Hematocrit (test code = 4544-3) 31.2 % 40.1-51 L MCV (test code = 787-2) 102.3 fL 79-92.2 H MCH (test code = 785-6) 30.5 pg 25.7-32.2 RDW (test code = 788-0) 17.6 % 11.6-14.4 H Platelets (test code = 777-3) 115 150- 450 K/CU MM L MPV (test code = 40212-0) 10.3 fL 9.4-12.4 nRBC (test code = 413) 2 0- 0 /100 WBC H Lab Interpretation (test code = 31757-0) [facility]2020-07-27 05:55:00* Test Item Value Reference Range Interpretation Comments WHITE BLOOD CELL COUNT (BEAKER) (test code = 775) 6.4 K/ L 3.5- 10.5 RED BLOOD CELL COUNT (BEAKER) (test code = 761) 3.05 M/ L 4.63-6 .08 L HEMOGLOBIN (BEAKER) (test code = 410) 9.3 GM/DL 13.7-17.5 L HEMATOCRIT (BEAKER) (test code = 411) 31.2 % 40.1-51.0 L MEAN CORPUSCULAR VOLUME (BEAKER) (test code = 753) 102.3 fL 79. 0-92.2 H MEAN CORPUSCULAR HEMOGLOBIN (BEAKER) (test code = 751) 30.5 pg 25.7-32.2 MEAN CORPUSCULAR HEMOGLOBIN CONC (BEAKER) (test code = 752) 29.8 GM/DL 32.3-36.5 L RED CELL DISTRIBUTION WIDTH (BEAKER) (test code = 412) 17.6 % 11.6-14.4 H PLATELET COUNT (BEAKER) (test code = 756) 115 K/CU MM 150-450 L MEAN PLATELET VOLUME (BEAKER) (test code = 754) 10.3 fL 9.4-12 .4 NUCLEATED RED BLOOD CELLS (BEAKER) (test code = 413) 2 /100 WBC 0 -0 H CALCIUM, [id number] 05:22:00* Test Item Value Reference Range Interpretation Comments CALCIUM IONIZED (BEAKER) (test code = 698) 1.12 mmol/L 1.12-1.27 PH, BLOOD (BEAKER) (test code = 1810) 7.36 POCT-GLUCOSE [id number] 22:04:00* Test Item Value Reference Range Interpretation Comments POC-GLUCOSE METER (BEAKER) (test code = 1538) 178 mg/dL 70-110 H : TESTED AT [address], [address]: Supervisor Pre Wave/Rail Specialist ID = [id number] for [employer] 2D Echo W/Doppler(CW/PW/Color)2020-07-26 19:14:08Ejection FractionSLEH ECHO HEARTLAB MKCKESSON CPACSInterface, External Ris In - 07/26/2020 7:14 PM CDTTransthoracic Echocardiography Report (TTE) Demographics Patient Name STEVE BENEDICT Date of Study 07/26/2020 Gender Male Visit Number [id number] Race Unknown Room Number 1447 Number Date of 1945 Referring Physician Santosh Bruno MD Age 74 year(s) Nursing Education Specialist Roma Mims, [facility] Photostat Operator Jimena Negrete, Interpreting Marii Sánchez [facility] Physician Procedure Type of Study TTE procedure:2DECHO W DOPPLER(CW/PW/COLOR) (ANA) Indications:Evaluation of LV Func tion Post AMI.Clinical HistoryFormer smoker, L cath/PCI 07/07/20, COPD, Acute on chronic respiratoryfailure with hypoxia and hypercapnia, HFrEFHGB 9.5HCT 32.2 %C ontrast Medium: Definity. Amount - 2 mlHeight: 69 inches Weight: 98.43 kg (217 l bs) BSA: 2.14 m^2 BMI: 32.04 kg/m^2HR: 86 bpm BP: 126/70 mmHg Summary 1. LV is n ormal size and function. All segments contract normally. LVEF is increased (> 70%) . 2. RV is normal size. RV function is mildly reduced. 3. Estimated peak sy stolic PA pressure is 45-50 mmHg (mild pulmonary hypertension) . 4. The estimate d RA pressure by IVC dynamics 5-10mmHg Previous Study In comparison with the pr ior exam 06/22/2020 the following changes are noted: left ventricular systolic fu nction is normal . Signature Findings Technical Quality: Technically difficult exam. Left Ventricle LV endocardium is adequately visualized with IV ultrasound enhancing agent. The left ventricle is chamber size (by vol index) is normal (male - LVED vol - 34-74ml/m2). Mild concentric LV hypertrophy. All of the LV segments are hyperkinetic . Global LV systolic functi on hyperdynamic . LVEF by Fritz's method of disk assess ment is increased (>70%) . Degree of diastolic [...] is normal. Mild tricuspid regurgitation. Estimated peak sys tolic PA pressure is 45-50 mmHg (mild pulmonary hypertens ion) . Pulmonic Valve Normal PV structure and function by limited views and Doppler. Aorta Aortic root size (S Inus of Valsalva diameter) is normal . Pericardium No pericardial effusion is visualized. IVC/SVC/PA/PV/Pleural The estimat ed RA pressure by IVC dynamics 5-10mmHg . Chambers/Struct ures Left Atrium LA Volume: 105.62 ml LA Area: 28.58 cm^2 LA Vol. Index: 49 ml/m^2 Left Ventricle LVIDd: 5.36 cm LV Septum Diastolic: 1.24 cm LV PW Diastolic: 1.2 cm LVEDV Fritz's:90.17 ml LVESV Fritz's:23.48 ml LV EF Fritz's: 74 % LVEDVI: 42 ml/m^2 LVESVI: 11 ml/m^2 LVOT Diameter: 2.2 cm Right Ventricle RVOT VTI: 11.78 cm Aorta Ao Root S of Kiera.: 3.39 cm Ascending Ao rta: 2.51 cm Doppler/Quantitative Measurements Aortic Valve Peak [...] CO: 5.67 l/min LVOT CI: 2.65 l/min/m^2 Tricusp id Valve TR Velocity: 3.16 m/s TR Gradient: 39.83 mmHg [facility] [id number] 17:07:00* Test Item Value Reference Range Interpretation Comments POC-GLUCOSE METER (BEAKER) (test code = 1538) 175 mg/dL 70-110 H : TESTED AT [place] [id number] [facility], [address]: Supervisor Pre Wave/Rail Specialist ID = [id number] for JESSICA, MARKY POCT-GLUCOSE [id number] 12:56:00* Test Item Value Reference Range Interpretation Comments POC-GLUCOSE METER (BEAKER) (test code = 1538) 212 mg/dL 70-110 H : TESTED AT [address], [address]: Supervisor Pre Wave/Rail Specialist ID = [id number] for JESSICA, MARKY POCT-GLUCOSE [id number] 08:44:00* Test Item Value Reference Range Interpretation Comments POC-GLUCOSE METER (BEAKER) (test code = 1538) 120 mg/dL 70-110 H : TESTED AT [address], [address]: Supervisor Pre Wave/Rail Specialist ID = [id number] for JESSICA, MARKY [id number] 06:50:00* Test Item Value Reference Range Interpretation Comments PHOSPHORUS (BEAKER) (test code = 604) 2.6 mg/dL 2.3-4.7 Supervisor Pre Wave ID - MAYA [id number] 06:50:00* Test Item Value Reference Range Interpretation Comments MAGNESIUM (BEAKER) (test code = 627) 2.0 mg/dL 1.6-2.6 Supervisor Pre Wave ID - MAYA FBASIC METABOLIC [id number] 06:50:00* Test Item Value Reference Range Interpretation Comments SODIUM (BEAKER) (test code = 381) 139 meq/L 136-145 POTASSIUM (BEAKER) (test code = 379) 4.8 meq/L 3.5-5.1 CHLORIDE (BEAKER) (test code = 382) 97 meq/L 98-107 L CO2 (BEAKER) (test code = 355) 36 meq/L 22-29 H BLOOD UREA NITROGEN (BEAKER) (test code = 354) 36 mg/dL 7-21 H CREATININE (BEAKER) (test code = 358) 1.46 mg/dL 0.57-1.25 H GLUCOSE RANDOM (BEAKER) (test code = 652) 178 mg/dL 70-105 H CALCIUM (BEAKER) (test code = 697) 8.1 mg/dL 8.4-10.2 L EGFR (BEAKER) (test code = 1092) 47 mL/min/1.73 sq m ESTIMATED GFR IS NOT ACCURATE CREATININE CLEARANCE IN PREDICTING GLOMERULAR FILTRATION RATE. ESTIMATED GFR IS NOT APPLICABLE FOR DIALYSIS PATIENTS. Supervisor Pre Wave ID - MAYA FC (HEMOGRAM ONLY)2020-07-26 06:36:00* Test Item Value Reference Range Interpretation Comments WHITE BLOOD CELL COUNT (BEAKER) (test code = 775) 6.4 K/ L 3.5- 10.5 RED BLOOD CELL COUNT (BEAKER) (test code = 761) 3.15 M/ L 4.63-6 .08 L HEMOGLOBIN (BEAKER) (test code = 410) 9.5 GM/DL 13.7-17.5 L HEMATOCRIT (BEAKER) (test code = 411) 32.2 % 40.1-51.0 L MEAN CORPUSCULAR VOLUME (BEAKER) (test code = 753) 102.2 fL 79. 0-92.2 H MEAN CORPUSCULAR HEMOGLOBIN (BEAKER) (test code = 751) 30.2 pg 25.7-32.2 MEAN CORPUSCULAR HEMOGLOBIN CONC (BEAKER) (test code = 752) 29.5 GM/DL 32.3-36.5 L RED CELL DISTRIBUTION WIDTH (BEAKER) (test code = 412) 17.6 % 11.6-14.4 H PLATELET COUNT (BEAKER) (test code = 756) 124 K/CU MM 150-450 L MEAN PLATELET VOLUME (BEAKER) (test code = 754) 11.2 fL 9.4-12 .4 NUCLEATED RED BLOOD CELLS (BEAKER) (test code = 413) 1 /100 WBC 0 -0 H POCT-GLUCOSE [id number] 21:18:00* Test Item Value Reference Range Interpretation Comments POC-GLUCOSE METER (BEAKER) (test code = 1538) 189 mg/dL 70-110 H : TESTED AT [address], [address]: Supervisor Pre Wave/Rail Specialist ID = [id number] for ALTAGRACIA VACA POCT-GLUCOSE [id number] 17:13:00* Test Item Value Reference Range Interpretation Comments POC-GLUCOSE METER (BEAKER) (test code = 1538) 208 mg/dL 70-110 H : Notified RN/MD: TESTED AT [facility] [address] [facility], [address]: Supervisor Pre Wave/Rail Specialist ID = [id number] for MARILU SORTO POCT-GLUCOSE [id number] 11:54:00* Test Item Value Reference Range Interpretation Comments POC-GLUCOSE METER (BEAKER) (test code = 1538) 158 mg/dL 70-110 H : Notified RN/MD: TESTED AT [address], [address]: Supervisor Pre Wave/Rail Specialist ID = [id number] for IAN SORTONTELL POCT-GLUCOSE [id number] 08:12:00* Test Item Value Reference Range Interpretation Comments POC-GLUCOSE METER (BEAKER) (test code = 1538) 144 mg/dL 70-110 H : Notified RN/MD: TESTED AT [place] [id number] [facility], [address]: Supervisor Pre Wave/Rail Specialist ID = [id number] for MARILU SORTO [id number] 07:41:00* Test Item Value Reference Range Interpretation Comments PHOSPHORUS (BEAKER) (test code = 604) 2.9 mg/dL 2.3-4.7 Supervisor Pre Wave ID - [id number] 07:41:00* Test Item Value Reference Range Interpretation Comments MAGNESIUM (BEAKER) (test code = 627) 2.2 mg/dL 1.6-2.6 Supervisor Pre Wave ID - DEVYNGBASIC METABOLIC [id number] 07:41:00* Test Item Value Reference Range Interpretation Comments SODIUM (BEAKER) (test code = 381) 138 meq/L 136-145 POTASSIUM (BEAKER) (test code = 379) 3.8 meq/L 3.5-5.1 CHLORIDE (BEAKER) (test code = 382) 97 meq/L 98-107 L CO2 (BEAKER) (test code = 355) 32 meq/L 22-29 H BLOOD UREA NITROGEN (BEAKER) (test code = 354) 32 mg/dL 7-21 H CREATININE (BEAKER) (test code = 358) 1.45 mg/dL 0.57-1.25 H GLUCOSE RANDOM (BEAKER) (test code = 652) 185 mg/dL 70-105 H CALCIUM (BEAKER) (test code = 697) 8.5 mg/dL 8.4-10.2 EGFR (BEAKER) (test code = 1092) 47 mL/min/1.73 sq m ESTIMATED GFR IS NOT ACCURATE CREATININE CLEARANCE IN PREDICTING GLOMERULAR FILTRATION RATE. ESTIMATED GFR IS NOT APPLICABLE FOR DIALYSIS PATIENTS. Supervisor Pre Wave ID - DEVYNGB-type Natriuretic Factor (BNP)2020-07-25 07:10:00* Test Item Value Reference Range Interpretation Comments BNP (test code = 88463-0) 566 pg/mL 0-100 H MARCO (test code = MARCO) Supervisor Pre Wave ID - HENRIETTA L Lab Interpretation (test code = 65012-2) [facility]normal [facility] (BNP)2020-07-25 07:10:00 * Test Item Value Reference Range Interpretation Comments B-TYPE NATRIURETIC PEPTIDE (BEAKER) (test code = 700) 566 pg/mL 0-100 H Supervisor Pre Wave ID - HENRIETTA LCBC (HEMOGRAM ONLY)2020-07-25 06:55:00* Test Item Value Reference Range Interpretation Comments WHITE BLOOD CELL COUNT (BEAKER) (test code = 775) 6.9 K/ L 3.5- 10.5 RED BLOOD CELL COUNT (BEAKER) (test code = 761) 3.26 M/ L 4.63-6 .08 L HEMOGLOBIN (BEAKER) (test code = 410) 9.8 GM/DL 13.7-17.5 L HEMATOCRIT (BEAKER) (test code = 411) 33.8 % 40.1-51.0 L MEAN CORPUSCULAR VOLUME (BEAKER) (test code = 753) 103.7 fL 79. 0-92.2 H MEAN CORPUSCULAR HEMOGLOBIN (BEAKER) (test code = 751) 30.1 pg 25.7-32.2 MEAN CORPUSCULAR HEMOGLOBIN CONC (BEAKER) (test code = 752) 29.0 GM/DL 32.3-36.5 L RED CELL DISTRIBUTION WIDTH (BEAKER) (test code = 412) 17.3 % 11.6-14.4 H PLATELET COUNT (BEAKER) (test code = 756) 114 K/CU MM 150-450 L MEAN PLATELET VOLUME (BEAKER) (test code = 754) 11.3 fL 9.4-12 .4 NUCLEATED RED BLOOD CELLS (BEAKER) (test code = 413) 1 /100 WBC 0 -0 H CALCIUM, [id number] 06:40:00* Test Item Value Reference Range Interpretation Comments CALCIUM IONIZED (BEAKER) (test code = 698) 1.14 mmol/L 1.12-1.27 PH, BLOOD (BEAKER) (test code = 1810) 7.34 POCT-GLUCOSE [id number] 21:31:00* Test Item Value Reference Range Interpretation Comments POC-GLUCOSE METER (BEAKER) (test code = 1538) 149 mg/dL 70-110 H : TESTED AT [address], [address]: Supervisor Pre Wave/Rail Specialist ID = [id number] for MARII LIU POCT-GLUCOSE [id number] 16:16:00* Test Item Value Reference Range Interpretation Comments POC-GLUCOSE METER (BEAKER) (test code = 1538) 141 mg/dL 70-110 H : TESTED AT [address], [address]: Supervisor Pre Wave/Rail Specialist ID = [id number] for GISSELLE ZAMORA POCT-GLUCOSE [id number] 12:01:00* Test Item Value Reference Range Interpretation Comments POC-GLUCOSE METER (BEAKER) (test code = 1538) 170 mg/dL 70-110 H : TESTED AT [address], [address]: Supervisor Pre Wave/Rail Specialist ID = [id number] for GISSELLE ZAMORA POCT-GLUCOSE [id number] 09:14:00* Test Item Value Reference Range Interpretation Comments POC-GLUCOSE METER (BEAKER) (test code = 1538) 81 mg/dL 70-110 : TESTED AT [address], [address]: Supervisor Pre Wave/Rail Specialist ID = [id number] for GISSELLE ZAMORA BASIC METABOLIC [id number] 04:37:00* Test Item Value Reference Range Interpretation Comments SODIUM (BEAKER) (test code = 381) 141 meq/L 136-145 POTASSIUM (BEAKER) (test code = 379) 4.1 meq/L 3.5-5.1 CHLORIDE (BEAKER) (test code = 382) 100 meq/L 98-107 CO2 (BEAKER) (test code = 355) 35 meq/L 22-29 H BLOOD UREA NITROGEN (BEAKER) (test code = 354) 33 mg/dL 7-21 H CREATININE (BEAKER) (test code = 358) 1.29 mg/dL 0.57-1.25 H GLUCOSE RANDOM (BEAKER) (test code = 652) 146 mg/dL 70-105 H CALCIUM (BEAKER) (test code = 697) 7.8 mg/dL 8.4-10.2 L EGFR (BEAKER) (test code = 1092) 54 mL/min/1.73 sq m ESTIMATED GFR IS NOT ACCURATE CREATININE CLEARANCE IN PREDICTING GLOMERULAR FILTRATION RATE. ESTIMATED GFR IS NOT APPLICABLE FOR DIALYSIS PATIENTS. Supervisor Pre Wave ID Dawson SHRESTHA [id number] 04:34:00* Test Item Value Reference Range Interpretation Comments MAGNESIUM (BEAKER) (test code = 627) 2.2 mg/dL 1.6-2.6 Supervisor Pre Wave ID Dawson SHRESTHA LCBC (HEMOGRAM ONLY)2020-07-24 04:01:00* Test Item Value Reference Range Interpretation Comments WHITE BLOOD CELL COUNT (BEAKER) (test code = 775) 6.2 K/ L 3.5- 10.5 RED BLOOD CELL COUNT (BEAKER) (test code = 761) 2.98 M/ L 4.63-6 .08 L HEMOGLOBIN (BEAKER) (test code = 410) 8.9 GM/DL 13.7-17.5 L HEMATOCRIT (BEAKER) (test code = 411) 30.6 % 40.1-51.0 L MEAN CORPUSCULAR VOLUME (BEAKER) (test code = 753) 102.7 fL 79. 0-92.2 H MEAN CORPUSCULAR HEMOGLOBIN (BEAKER) (test code = 751) 29.9 pg 25.7-32.2 MEAN CORPUSCULAR HEMOGLOBIN CONC (BEAKER) (test code = 752) 29.1 GM/DL 32.3-36.5 L RED CELL DISTRIBUTION WIDTH (BEAKER) (test code = 412) 16.9 % 11.6-14.4 H PLATELET COUNT (BEAKER) (test code = 756) 103 K/CU MM 150-450 L MEAN PLATELET VOLUME (BEAKER) (test code = 754) 11.0 fL 9.4-12 .4 NUCLEATED RED BLOOD CELLS (BEAKER) (test code = 413) 2 /100 WBC 0 -0 H POCT-GLUCOSE [id number] 19:41:00* Test Item Value Reference Range Interpretation Comments POC-GLUCOSE METER (BEAKER) (test code = 1538) 233 mg/dL 70-110 H : TESTED AT [address], [address]: Supervisor Pre Wave/Rail Specialist ID = [id number] for Edith Adams POCT-GLUCOSE [id number] 18:30:00* Test Item Value Reference Range Interpretation Comments POC-GLUCOSE METER (BEAKER) (test code = 1538) 203 mg/dL 70-110 H : TESTED AT [address], [address]: Supervisor Pre Wave/Rail Specialist ID = [id number] for Yamileth Lockhart POCT-GLUCOSE [id number] 17:18:00* Test Item Value Reference Range Interpretation Comments POC-GLUCOSE METER (BEAKER) (test code = 1538) 206 mg/dL 70-110 H : TESTED AT [address], [address]: Supervisor Pre Wave/Rail Specialist ID = [id number] for JESSICA, MARKY POCT-GLUCOSE [id number] 12:12:00* Test Item Value Reference Range Interpretation Comments POC-GLUCOSE METER (BEAKER) (test code = 1538) 157 mg/dL 70-110 H : TESTED AT [address], [address]: Supervisor Pre Wave/Rail Specialist ID = [id number] for JESSICA, MARKY POCT-GLUCOSE [id number] 10:25:00* Test Item Value Reference Range Interpretation Comments POC-GLUCOSE METER (BEAKER) (test code = 1538) 154 mg/dL 70-110 H : TESTED AT [address], [address]: Supervisor Pre Wave/Rail Specialist ID = [id number] for Yamileth Lockhart [id number] 07:00:00* Test Item Value Reference Range Interpretation Comments MAGNESIUM (BEAKER) (test code = 627) 2.3 mg/dL 1.6-2.6 Supervisor Pre Wave ID - HENRIETTA LBASIC METABOLIC [id number] 07:00:00* Test Item Value Reference Range Interpretation Comments SODIUM (BEAKER) (test code = 381) 138 meq/L 136-145 POTASSIUM (BEAKER) (test code = 379) 3.9 meq/L 3.5-5.1 CHLORIDE (BEAKER) (test code = 382) 97 meq/L 98-107 L CO2 (BEAKER) (test code = 355) 37 meq/L 22-29 H BLOOD UREA NITROGEN (BEAKER) (test code = 354) 35 mg/dL 7-21 H CREATININE (BEAKER) (test code = 358) 1.38 mg/dL 0.57-1.25 H GLUCOSE RANDOM (BEAKER) (test code = 652) 195 mg/dL 70-105 H CALCIUM (BEAKER) (test code = 697) 8.5 mg/dL 8.4-10.2 EGFR (BEAKER) (test code = 1092) 50 mL/min/1.73 sq m ESTIMATED GFR IS NOT ACCURATE CREATININE CLEARANCE IN PREDICTING GLOMERULAR FILTRATION RATE. ESTIMATED GFR IS NOT APPLICABLE FOR DIALYSIS PATIENTS. Supervisor Pre Wave ID - PIAYA LCBC (HEMOGRAM ONLY)2020-07-23 06:58:00* Test Item Value Reference Range Interpretation Comments WHITE BLOOD CELL COUNT (BEAKER) (test code = 775) 5.9 K/ L 3.5- 10.5 RED BLOOD CELL COUNT (BEAKER) (test code = 761) 3.10 M/ L 4.63-6 .08 L HEMOGLOBIN (BEAKER) (test code = 410) 9.4 GM/DL 13.7-17.5 L HEMATOCRIT (BEAKER) (test code = 411) 31.6 % 40.1-51.0 L MEAN CORPUSCULAR VOLUME (BEAKER) (test code = 753) 101.9 fL 79. 0-92.2 H MEAN CORPUSCULAR HEMOGLOBIN (BEAKER) (test code = 751) 30.3 pg 25.7-32.2 MEAN CORPUSCULAR HEMOGLOBIN CONC (BEAKER) (test code = 752) 29.7 GM/DL 32.3-36.5 L RED CELL DISTRIBUTION WIDTH (BEAKER) (test code = 412) 17.0 % 11.6-14.4 H PLATELET COUNT (BEAKER) (test code = 756) 108 K/CU MM 150-450 L MEAN PLATELET VOLUME (BEAKER) (test code = 754) 11.4 fL 9.4-12 .4 NUCLEATED RED BLOOD CELLS (BEAKER) (test code = 413) 1 /100 WBC 0 -0 H POCT-GLUCOSE [id number] 22:40:00* Test Item Value Reference Range Interpretation Comments POC-GLUCOSE METER (BEAKER) (test code = 1538) 196 mg/dL 70-110 H : TESTED AT [place] [id number] [facility], [address]: Supervisor Pre Wave/Rail Specialist ID = [id number] for CHRISTAL MCGOWAN POCT-GLUCOSE [id number] 17:57:00* Test Item Value Reference Range Interpretation Comments POC-GLUCOSE METER (BEAKER) (test code = 1538) 201 mg/dL 70-110 H : TESTED AT [address], [address]: Supervisor Pre Wave/Rail Specialist ID = [id number] for GISSELLE ZAMORA POCT-GLUCOSE [id number] 12:29:00* Test Item Value Reference Range Interpretation Comments POC-GLUCOSE METER (BEAKER) (test code = 1538) 106 mg/dL 70-110 : TESTED AT [address], [address]: Supervisor Pre Wave/Rail Specialist ID = [id number] for GISSELLE ZAMORA POCT-GLUCOSE [id number] 08:11:00* Test Item Value Reference Range Interpretation Comments POC-GLUCOSE METER (BEAKER) (test code = 1538) 60 mg/dL 70-110 L : TESTED AT [address], [address]: Supervisor Pre Wave/Rail Specialist ID = [id number] for GISSELLE ZAMORA [id number] 06:10:00* Test Item Value Reference Range Interpretation Comments MAGNESIUM (BEAKER) (test code = 627) 2.3 mg/dL 1.6-2.6 Supervisor Pre Wave ID - EDASIBASIC METABOLIC [id number] 06:10:00* Test Item Value Reference Range Interpretation Comments SODIUM (BEAKER) (test code = 381) 140 meq/L 136-145 POTASSIUM (BEAKER) (test code = 379) 4.2 meq/L 3.5-5.1 CHLORIDE (BEAKER) (test code = 382) 98 meq/L 98-107 CO2 (BEAKER) (test code = 355) 35 meq/L 22-29 H BLOOD UREA NITROGEN (BEAKER) (test code = 354) 45 mg/dL 7-21 H CREATININE (BEAKER) (test code = 358) 1.36 mg/dL 0.57-1.25 H GLUCOSE RANDOM (BEAKER) (test code = 652) 134 mg/dL 70-105 H CALCIUM (BEAKER) (test code = 697) 8.2 mg/dL 8.4-10.2 L EGFR (BEAKER) (test code = 1092) 51 mL/min/1.73 sq m ESTIMATED GFR IS NOT ACCURATE CREATININE CLEARANCE IN PREDICTING GLOMERULAR FILTRATION RATE. ESTIMATED GFR IS NOT APPLICABLE FOR DIALYSIS PATIENTS. Supervisor Pre Wave ID - [id number] (HEMOGRAM ONLY)2020-07-22 05:47:00* Test Item Value Reference Range Interpretation Comments WHITE BLOOD CELL COUNT (BEAKER) (test code = 775) 6.9 K/ L 3.5- 10.5 RED BLOOD CELL COUNT (BEAKER) (test code = 761) 3.14 M/ L 4.63-6 .08 L HEMOGLOBIN (BEAKER) (test code = 410) 9.4 GM/DL 13.7-17.5 L HEMATOCRIT (BEAKER) (test code = 411) 31.7 % 40.1-51.0 L MEAN CORPUSCULAR VOLUME (BEAKER) (test code = 753) 101.0 fL 79. 0-92.2 H MEAN CORPUSCULAR HEMOGLOBIN (BEAKER) (test code = 751) 29.9 pg 25.7-32.2 MEAN CORPUSCULAR HEMOGLOBIN CONC (BEAKER) (test code = 752) 29.7 GM/DL 32.3-36.5 L RED CELL DISTRIBUTION WIDTH (BEAKER) (test code = 412) 16.8 % 11.6-14.4 H PLATELET COUNT (BEAKER) (test code = 756) 106 K/CU MM 150-450 L MEAN PLATELET VOLUME (BEAKER) (test code = 754) 11.2 fL 9.4-12 .4 NUCLEATED RED BLOOD CELLS (BEAKER) (test code = 413) 1 /100 WBC 0 -0 H POCT-GLUCOSE [id number] 23:16:00* Test Item Value Reference Range Interpretation Comments POC-GLUCOSE METER (BEAKER) (test code = 1538) 204 mg/dL 70-110 H : TESTED AT [address], [address]: Supervisor Pre Wave/Rail Specialist ID = [id number] for Edith Adams POCT-GLUCOSE [id number] 20:11:00* Test Item Value Reference Range Interpretation Comments POC-GLUCOSE METER (BEAKER) (test code = 1538) 292 mg/dL 70-110 H : TESTED AT [address], [address]: Supervisor Pre Wave/Rail Specialist ID = [id number] for Edith Adams POCT-GLUCOSE [id number] 18:01:00* Test Item Value Reference Range Interpretation Comments POC-GLUCOSE METER (BEAKER) (test code = 1538) 254 mg/dL 70-110 H : TESTED AT [address], [address]: Supervisor Pre Wave/Rail Specialist ID = [id number] for MONA PARKER Hemoglobin and [id number] 16:50:00* Test Item Value Reference Range Interpretation Comments Hemoglobin (test code = 786-4) 9.7 13.7- 17.5 GM/DL L Hematocrit (test code = 4544-3) 31.5 % 40.1-51 L MARCO (test code = MARCO) Supervisor Pre Wave ID - [id number] Lab Interpretation (test code = 17342-1) [facility] [id number] 16:50:00* Test Item Value Reference Range Interpretation Comments HEMOGLOBIN (BEAKER) (test code = 410) 9.7 GM/DL 13.7-17.5 L HEMATOCRIT (BEAKER) (test code = 411) 31.5 % 40.1-51.0 L Supervisor Pre Wave ID - [id number]-GLUCOSE [id number] 13:23:00* Test Item Value Reference Range Interpretation Comments POC-GLUCOSE METER (BEAKER) (test code = 1538) 220 mg/dL 70-110 H : TESTED AT [address], [address]: Supervisor Pre Wave/Rail Specialist ID = [id number] for MONA PARKER POCT-GLUCOSE [id number] 08:52:00* Test Item Value Reference Range Interpretation Comments POC-GLUCOSE METER (BEAKER) (test code = 1538) 95 mg/dL 70-110 : TESTED AT [address], [address]: Supervisor Pre Wave/Rail Specialist ID = [id number] for MONA PARKER SARS-CoV2/RT-PCR (Asymptomatic ONLY)2020-07-21 08:12:00* Test Item Value Reference Range Interpretation Comments SARS-COV2/RT-PCR (test code = 71877-8) Negative N ot Detected, Negative, See external report for linked test SARS-COV-2 PERFORMING LAB (test code = 76514-6) [facility] MARCO (test code = MARCO) Negative result for this bharat t determines that SARS-CoV-2 RNA was not present in the specimen above the Limit of Detection (LOD). However, Negative results do not preclude SARS-CoV-2 infection and should not be used as the sole basis for treatment or patient management decisions. Negative results must be combined with clinical observations, patient history, and epidemiological information. A false negative result may occur if a specimen is improperly collected, transported or handled. A false negative result should be considered if patient's recent exposures or clinical presentation indicate that COVID-19 (SARS-CoV-2) is likely and diagnostic tests for other causes of illness are negative. Re-testing should be considered in cases of suspected false negatives. The limit of detection for this assay is 800 copies/mL. This SARS CoV-2 test is a real-time RT-PCR test intended for the qualitative detection of nucleic acid from SARS-CoV-2 in a nasopharyngeal swab specimen collected from individuals suspected of COVID-19 by their healthcare provider. This test has not been Food and Drug Administration (FDA) cleared or approved. This is a modified version of an approved Emergency Use Authorization (EUA) and is in the process of review by the FDA. Once authorized by the FDA, the issued EUA will be effective until the declaration that circumstances exist justifying the authorization of the emergency use of in vitro diagnostic tests for detection and/or diagnosis of COVID-19 is terminated under Section 564(b)(2) of the Act or the EUA is revoked under Section 564(g) of the Act. Fact Sheet for Healthcare Providers:https://www.[employer]/sites/default/files/product/documents/Fact_Shee r_OF_Rifwqjjia_Syje_OWGU-TuA-6.pdf Fact Sheet for Healthcare Patients:https://www.[employer]/sites/default/files/pro duct/documents/Vvro_Wpdot_Rhdvbutv_Axoa_EBVR-DnH-7.pdf Performing Laboratory:[place] [address] [place] [address] [facility])2020-07-21 08:12:00* Test Item Value Reference Range Interpretation Comments SARS-COV2/RT-PCR (test code = 8960812) Negative N ot Detected, Negative, See external report for linked test SARS-COV-2 PERFORMING LAB (test code = 4889611) [facility] Negative result for this test determines that SARS-CoV-2 RNA was not present in the specimen above the Limit of Detection (LOD). However, Negative results do n ot preclude SARS-CoV-2 infection and should not be used as the sole basis for tr eatment or patient management decisions. Negative results must be combined with clinical observations, patient history, and epidemiological information. A false negative result may occur if a specimen is improperly collected, transported or handled. A false negative result should be considered if patient's recent expo sures or clinical presentation indicate that COVID-19 (SARS-CoV-2) is likely and diagnostic tests for other causes of illness are negative. Re-testing should be considered in cases of suspected false negatives.The limit of detection for this assay is 800 copies/mL.This SARS CoV-2 test is a real-time RT-PCR test intended for the qualitative detection of nucleic acid from SARS-CoV-2 in a nasopharyn geal swab specimen collected from individuals suspected of COVID-19 by their [facility] provider.This test has not been Food and Drug Administration (FDA) clear ed or approved. This is a modified version of an approved Emergency Use Authori zation (EUA) and is in the process of review by the FDA. Once authorized by [facility] FDA, the issued EUA will be effective until the declaration that circumstances exist justifying the authorization of the emergency use of in vitro diagnostic tests for detection and/or diagnosis of COVID-19 is terminated under Section 564 (b)(2) of the Act or the EUA is revoked under Section 564(g) of the Act.Fact She et for Healthcare Providers:https://www.[employer]/sites/default/files/product/d ocuments/Wbtn_Fzgrl_GI_Gmujgzpwu_Qwad_LOVW-HtG-5.pdfFact Sheet for Healthcare Pa david:https://www.[employer]/sites/default/files/product/documents/Fact_Sheet_P ahexugc_Tthj_QMYP-YzS-0.pdfPerforming Laboratory:[facility] [address], [place] [id number] 05:49:00* Test Item Value Reference Range Interpretation Comments PHOSPHORUS (BEAKER) (test code = 604) 3.2 mg/dL 2.3-4.7 Supervisor Pre Wave ID - [id number] 05:49:00* Test Item Value Reference Range Interpretation Comments MAGNESIUM (BEAKER) (test code = 627) 2.3 mg/dL 1.6-2.6 Supervisor Pre Wave ID - EDASIBASIC METABOLIC [id number] 05:49:00* Test Item Value Reference Range Interpretation Comments SODIUM (BEAKER) (test code = 381) 136 meq/L 136-145 POTASSIUM (BEAKER) (test code = 379) 4.7 meq/L 3.5-5.1 CHLORIDE (BEAKER) (test code = 382) 95 meq/L 98-107 L CO2 (BEAKER) (test code = 355) 35 meq/L 22-29 H BLOOD UREA NITROGEN (BEAKER) (test code = 354) 48 mg/dL 7-21 H CREATININE (BEAKER) (test code = 358) 1.53 mg/dL 0.57-1.25 H GLUCOSE RANDOM (BEAKER) (test code = 652) 158 mg/dL 70-105 H CALCIUM (BEAKER) (test code = 697) 8.3 mg/dL 8.4-10.2 L EGFR (BEAKER) (test code = 1092) 45 mL/min/1.73 sq m ESTIMATED GFR IS NOT ACCURATE CREATININE CLEARANCE IN PREDICTING GLOMERULAR FILTRATION RATE. ESTIMATED GFR IS NOT APPLICABLE FOR DIALYSIS PATIENTS. Supervisor Pre Wave ID - EDASICBC (HEMOGRAM ONLY)2020-07-21 05:25:00* Test Item Value Reference Range Interpretation Comments WHITE BLOOD CELL COUNT (BEAKER) (test code = 775) 7.1 K/ L 3.5- 10.5 RED BLOOD CELL COUNT (BEAKER) (test code = 761) 3.11 M/ L 4.63-6 .08 L HEMOGLOBIN (BEAKER) (test code = 410) 9.3 GM/DL 13.7-17.5 L HEMATOCRIT (BEAKER) (test code = 411) 31.1 % 40.1-51.0 L MEAN CORPUSCULAR VOLUME (BEAKER) (test code = 753) 100.0 fL 79. 0-92.2 H MEAN CORPUSCULAR HEMOGLOBIN (BEAKER) (test code = 751) 29.9 pg 25.7-32.2 MEAN CORPUSCULAR HEMOGLOBIN CONC (BEAKER) (test code = 752) 29.9 GM/DL 32.3-36.5 L RED CELL DISTRIBUTION WIDTH (BEAKER) (test code = 412) 16.5 % 11.6-14.4 H PLATELET COUNT (BEAKER) (test code = 756) 95 K/CU MM 150-450 L MEAN PLATELET VOLUME (BEAKER) (test code = 754) 11.3 fL 9.4-12 .4 NUCLEATED RED BLOOD CELLS (BEAKER) (test code = 413) 0 /100 WBC 0 -0 CALCIUM, [id number] 05:14:00* Test Item Value Reference Range Interpretation Comments CALCIUM IONIZED (BEAKER) (test code = 698) 1.17 mmol/L 1.12-1.27 PH, BLOOD (BEAKER) (test code = 1810) 7.34 POCT-GLUCOSE [id number] 21:31:00* Test Item Value Reference Range Interpretation Comments POC-GLUCOSE METER (BEAKER) (test code = 1538) 188 mg/dL 70-110 H : TESTED AT [address], [address]: Supervisor Pre Wave/Rail Specialist ID = [id number] for MAIKEL BAIN HEMOGLOBIN AND [id number] 20:40:00* Test Item Value Reference Range Interpretation Comments HEMOGLOBIN (BEAKER) (test code = 410) 10.0 GM/DL 13.7-17.5 L HEMATOCRIT (BEAKER) (test code = 411) 32.9 % 40.1-51.0 L Supervisor Pre Wave ID - [id number]-GLUCOSE [id number] 17:16:00* Test Item Value Reference Range Interpretation Comments POC-GLUCOSE METER (BEAKER) (test code = 1538) 223 mg/dL 70-110 H : TESTED AT [address], [address]: Supervisor Pre Wave/Rail Specialist ID = [id number] for KEYSHA ROBERSON Creatine Kinase (CK)2020-07-20 13:12:00* Test Item Value Reference Range Interpretation Comments Total CK (test code = 2157-6) 58 U/L 29-200 MARCO (test code = MARCO) Supervisor Pre Wave ID - HENRIETTA L Lab Interpretation (test code = 51012-5) [facility]20 13:12:00* Test Item Value Reference Range Interpretation Comments CREATINE KINASE TOTAL (BEAKER) (test code = 380) 58 U/L 29-20 0 Supervisor Pre Wave ID - HENRIETTA LPOCT-GLUCOSE [id number] 12:39:00* Test Item Value Reference Range Interpretation Comments POC-GLUCOSE METER (BEAKER) (test code = 1538) 243 mg/dL 70-110 H : TESTED AT [address], [address]: Supervisor Pre Wave/Rail Specialist ID = [id number] for KEYSHA ROBERSON POCT-GLUCOSE [id number] 10:42:00* Test Item Value Reference Range Interpretation Comments POC-GLUCOSE METER (BEAKER) (test code = 1538) 237 mg/dL 70-110 H : TESTED AT [address], [address]: Supervisor Pre Wave/Rail Specialist ID = [id number] for MARGIE LEÓN RAD, CHEST, 1 VIEW, NON [id number] 09:18:00Reason for exam:->dyspneaShould this be performed at the bedside?->YesFINAL REPORT INDICATION: dyspnea COMPARISON: 07/08/2020 TECHNIQUE: Single frontal view of the chest. FINDINGS: Lungs and pleura: Atelectasis within the right midlung, unchanged No effusion.Heart and mediastinum: Normal heart size. Unremarkable mediastinal contours.Osseous structures: No acute abnormality.Other: None. IMPRESSION: No acute intrathoracic abnormality. Signed: Partha Montes Verified Date/Time: 07/20/2020 09:18:57 Reading Location: [facility] Radiology Reading Room chest 1 view portable / [id number] 09:18:00 Interface, External Ris In - 07/20/2020 9:21 AM CDTFINAL REPORT PATIENT ID: [id number] INDICATION: dyspnea COMPARISON: 07/08/2020 TECHNIQUE: Single frontal view of the chest. FINDINGS: Lungs and pleura: Atelectasis within the right midlung, unchanged No effusion.Heart and mediastinum: Normal heart size. Unremarkable me diastinal contours.Osseous structures: No acute abnormality.Other: None. IMPRES VANIA: No acute intrathoracic abnormality. Signed: Partha Montes MDReport Verif ied Date/Time: 07/20/2020 09:18:57 Reading Location: [facility] 07:52:00* Test Item Value Reference Range Interpretation Comments MAGNESIUM (BEAKER) (test code = 627) 2.3 mg/dL 1.6-2.6 Supervisor Pre Wave ID Dawson PITTSASIC METABOLIC [id number] 07:52:00* Test Item Value Reference Range Interpretation Comments SODIUM (BEAKER) (test code = 381) 136 meq/L 136-145 POTASSIUM (BEAKER) (test code = 379) 4.8 meq/L 3.5-5.1 CHLORIDE (BEAKER) (test code = 382) 94 meq/L 98-107 L CO2 (BEAKER) (test code = 355) 31 meq/L 22-29 H BLOOD UREA NITROGEN (BEAKER) (test code = 354) 53 mg/dL 7-21 H CREATININE (BEAKER) (test code = 358) 1.73 mg/dL 0.57-1.25 H GLUCOSE RANDOM (BEAKER) (test code = 652) 162 mg/dL 70-105 H CALCIUM (BEAKER) (test code = 697) 9.1 mg/dL 8.4-10.2 EGFR (BEAKER) (test code = 1092) 39 mL/min/1.73 sq m ESTIMATED GFR IS NOT ACCURATE CREATININE CLEARANCE IN PREDICTING GLOMERULAR FILTRATION RATE. ESTIMATED GFR IS NOT APPLICABLE FOR DIALYSIS PATIENTS. Supervisor Pre Wave ID - HENRIETTA LB-TYPE NATRIURETIC FACTOR (BNP)2020-07-20 05:55:00* Test Item Value Reference Range Interpretation Comments B-TYPE NATRIURETIC PEPTIDE (BEAKER) (test code = 700) 496 pg/mL 0-100 H Supervisor Pre Wave ID - SEDA MHEMOGLOBIN AND [id number] 05:20:00* Test Item Value Reference Range Interpretation Comments HEMOGLOBIN (BEAKER) (test code = 410) 10.9 GM/DL 13.7-17.5 L HEMATOCRIT (BEAKER) (test code = 411) 35.8 % 40.1-51.0 L Supervisor Pre Wave ID - [id number] (HEMOGRAM ONLY)2020-07-20 05:20:00* Test Item Value Reference Range Interpretation Comments WHITE BLOOD CELL COUNT (BEAKER) (test code = 775) 9.8 K/ L 3.5- 10.5 RED BLOOD CELL COUNT (BEAKER) (test code = 761) 3.62 M/ L 4.63-6 .08 L HEMOGLOBIN (BEAKER) (test code = 410) 10.9 GM/DL 13.7-17.5 L HEMATOCRIT (BEAKER) (test code = 411) 35.8 % 40.1-51.0 L MEAN CORPUSCULAR VOLUME (BEAKER) (test code = 753) 98.9 fL 79. 0-92.2 H MEAN CORPUSCULAR HEMOGLOBIN (BEAKER) (test code = 751) 30.1 pg 25.7-32.2 MEAN CORPUSCULAR HEMOGLOBIN CONC (BEAKER) (test code = 752) 30.4 GM/DL 32.3-36.5 L RED CELL DISTRIBUTION WIDTH (BEAKER) (test code = 412) 16.4 % 11.6-14.4 H PLATELET COUNT (BEAKER) (test code = 756) 118 K/CU MM 150-450 L MEAN PLATELET VOLUME (BEAKER) (test code = 754) 11.4 fL 9.4-12 .4 NUCLEATED RED BLOOD CELLS (BEAKER) (test code = 413) 0 /100 WBC 0 -0 CALCIUM, [id number] 05:10:00* Test Item Value Reference Range Interpretation Comments CALCIUM IONIZED (BEAKER) (test code = 698) 1.17 mmol/L 1.12-1.27 PH, BLOOD (BEAKER) (test code = 1810) 7.36 POCT-GLUCOSE [id number] 21:31:00* Test Item Value Reference Range Interpretation Comments POC-GLUCOSE METER (BEAKER) (test code = 1538) 170 mg/dL 70-110 H : TESTED AT [facility] [address] [facility], [address]: Supervisor Pre Wave/Rail Specialist ID = [id number] for CHRISTAL MCGOWAN POCT-GLUCOSE [id number] 18:24:00* Test Item Value Reference Range Interpretation Comments POC-GLUCOSE METER (BEAKER) (test code = 1538) 299 mg/dL 70-110 H : TESTED AT [facility] [address] [facility], [address]: Supervisor Pre Wave/Rail Specialist ID = [id number] for MARKY LOPEZ Pseudoaneurysm Groin Doppler [id number] 17:31:37Ejection Merged with [facility] ECHO HEARTLAB MKCKESSON CPACS Left Impression1. There is no pseudoaneurysm visualized.2. There is no hematoma visualized.3. There is no venous obstruction or arteriovenous fistula visualized.4. The common femoral artery flow is triphasic with a velocity of 121cm/sec. (within normal range). Conclusions Summary Duplex imaging of the left groin area was performed. The vessels were adequately visualized. There was no evidence of a pseudoaneurysm, venous o bstruction or arteriovenous fistula in the left groin area. Signature -------- Velocities are measured in cm/ s ; Diameters are measured in cm Interface, External Ris In - 07/19/2020 5:31 P M CDTPV LAB - Pseudoaneurysm Survey Demographics Patient Name RACHEL BENEDICT Date of Study 07/19/2020 Age 74 Visit Number [id number] Gender Male Accession Number [id number] Date of 1945 [place] Room Number 6213 Physician Sonographe charlotte Hooper Interpreting Trina Hampton MD RVT Physician ProcedureType of Study: Pseudoaneurysm: PSEUDOAN EURYSM, GROIN DOPPLER LEFT. Indications for Study:Check for pseudoaneurysm.Patie nt Status:STAT.Study Location:Portable.Technical Quality:Technically Difficult.R isk FactorsHistory of Disease+---------+----+ +!Diagnosis!Date!Comments !+---------+----+ +!Other ! !COPD, CHF, CAD S/p PCIX4, CKD, Morbid Obesity, Lines Right !! ! !Neck !+---------+----+ ----+ImpressionsLeft Impression1. There is no pseudoaneurysm visualized.2. There is no hematoma visualized.3. There is no venous obstruction or arteriovenous fi stula visualized.4. The common femoral artery flow is triphasic with a velocity of 121cm/sec. (within normal range). Conclusions Summary Duplex imaging of the left groin area was performed. The vessels were adequately visualized. There was no evidence of a pseudoaneurysm, venous obstruction or arteriovenous fistula in the left groin area. Signature Velocities are measured in cm/s ; Diameters are measured in [facility] [id number] 16:35:00* Test Item Value Reference Range Interpretation Comments POC-GLUCOSE METER (BEAKER) (test code = 1538) 225 mg/dL 70-110 H : Notified RN/: TESTED AT [address], [address]: Supervisor Pre Wave/Rail Specialist ID = [id number] for MARES, LUCIAAULA HEMOGLOBIN AND [id number] 16:10:00* Test Item Value Reference Range Interpretation Comments HEMOGLOBIN (BEAKER) (test code = 410) 10.4 GM/DL 13.7-17.5 L HEMATOCRIT (BEAKER) (test code = 411) 35.1 % 40.1-51.0 L Supervisor Pre Wave ID - 6000POCT-GLUCOSE [id number] 11:24:00* Test Item Value Reference Range Interpretation Comments POC-GLUCOSE METER (BEAKER) (test code = 1538) 209 mg/dL 70-110 H : TESTED AT [address], [address]: Supervisor Pre Wave/Rail Specialist ID = [id number] for MARES, BEAULA HEMOGLOBIN AND [id number] 09:46:00* Test Item Value Reference Range Interpretation Comments HEMOGLOBIN (BEAKER) (test code = 410) 10.6 GM/DL 13.7-17.5 L HEMATOCRIT (BEAKER) (test code = 411) 35.8 % 40.1-51.0 L Supervisor Pre Wave ID - 6000POCT-GLUCOSE [id number] 07:27:00* Test Item Value Reference Range Interpretation Comments POC-GLUCOSE METER (BEAKER) (test code = 1538) 184 mg/dL 70-110 H : TESTED AT [facility] [address] [place], [address]: Supervisor Pre Wave/Rail Specialist ID = [id number] for NANCY MARES CALCIUM, [id number] 04:50:00* Test Item Value Reference Range Interpretation Comments CALCIUM IONIZED (BEAKER) (test code = 698) 1.21 mmol/L 1.12-1.27 PH, BLOOD (BEAKER) (test code = 1810) 7.32 CBC W/PLT COUNT & AUTO [id number] 04:40:00* Test Item Value Reference Range Interpretation Comments WHITE BLOOD CELL COUNT (BEAKER) (test code = 775) 9.4 K/ L 3.5- 10.5 RED BLOOD CELL COUNT (BEAKER) (test code = 761) 3.68 M/ L 4.63-6 .08 L HEMOGLOBIN (BEAKER) (test code = 410) 11.3 GM/DL 13.7-17.5 L HEMATOCRIT (BEAKER) (test code = 411) 37.8 % 40.1-51.0 L MEAN CORPUSCULAR VOLUME (BEAKER) (test code = 753) 102.7 fL 79. 0-92.2 H MEAN CORPUSCULAR HEMOGLOBIN (BEAKER) (test code = 751) 30.7 pg 25.7-32.2 MEAN CORPUSCULAR HEMOGLOBIN CONC (BEAKER) (test code = 752) 29.9 GM/DL 32.3-36.5 L RED CELL DISTRIBUTION WIDTH (BEAKER) (test code = 412) 17.0 % 11.6-14.4 H PLATELET COUNT (BEAKER) (test code = 756) 112 K/CU MM 150-450 L MEAN PLATELET VOLUME (BEAKER) (test code = 754) 11.9 fL 9.4-12 .4 NUCLEATED RED BLOOD CELLS (BEAKER) (test code = 413) 0 /100 WBC 0 -0 NEUTROPHILS RELATIVE PERCENT (BEAKER) (test code = 429) 85 % LYMPHOCYTES RELATIVE PERCENT (BEAKER) (test code = 430) 8 % MONOCYTES RELATIVE PERCENT (BEAKER) (test code = 431) 5 % EOSINOPHILS RELATIVE PERCENT (BEAKER) (test code = 432) 1 % BASOPHILS RELATIVE PERCENT (BEAKER) (test code = 437) 0 % NEUTROPHILS ABSOLUTE COUNT (BEAKER) (test code = 670) 7.99 K/ L 1.78-5.38 H LYMPHOCYTES ABSOLUTE COUNT (BEAKER) (test code = 414) 0.77 K/ L 1.32-3.57 L MONOCYTES ABSOLUTE COUNT (BEAKER) (test code = 415) 0.43 K/ L 0. 30-0.82 EOSINOPHILS ABSOLUTE COUNT (BEAKER) (test code = 416) 0.12 K/ L 0.04-0.54 BASOPHILS ABSOLUTE COUNT (BEAKER) (test code = 417) 0.01 K/ L 0. 01-0.08 IMMATURE GRANULOCYTES-RELATIVE PERCENT (BEAKER) (test code = 2801) 1 % 0-1 [id number] 04:39:00* Test Item Value Reference Range Interpretation Comments PHOSPHORUS (BEAKER) (test code = 604) 3.4 mg/dL 2.3-4.7 Supervisor Pre Wave ID - NAUN [id number] 04:39:00* Test Item Value Reference Range Interpretation Comments MAGNESIUM (BEAKER) (test code = 627) 2.3 mg/dL 1.6-2.6 Supervisor Pre Wave ID - NAUN WCOMPREHENSIVE METABOLIC [id number] 04:39:00* Test Item Value Reference Range Interpretation Comments TOTAL PROTEIN (BEAKER) (test code = 770) 5.6 gm/dL 6.0-8.3 L ALBUMIN (BEAKER) (test code = 1145) 3.4 g/dL 3.5-5.0 L ALKALINE PHOSPHATASE (BEAKER) (test code = 346) 80 U/L 40-150 BILIRUBIN TOTAL (BEAKER) (test code = 377) 0.7 mg/dL 0.2-1.2 SODIUM (BEAKER) (test code = 381) 134 meq/L 136-145 L POTASSIUM (BEAKER) (test code = 379) 4.8 meq/L 3.5-5.1 CHLORIDE (BEAKER) (test code = 382) 93 meq/L 98-107 L CO2 (BEAKER) (test code = 355) 39 meq/L 22-29 H BLOOD UREA NITROGEN (BEAKER) (test code = 354) 49 mg/dL 7-21 H CREATININE (BEAKER) (test code = 358) 1.51 mg/dL 0.57-1.25 H GLUCOSE RANDOM (BEAKER) (test code = 652) 256 mg/dL 70-105 H CALCIUM (BEAKER) (test code = 697) 9.0 mg/dL 8.4-10.2 AST (SGOT) (BEAKER) (test code = 353) 19 U/L 5-34 ALT (SGPT) (BEAKER) (test code = 347) 31 U/L 6-55 EGFR (BEAKER) (test code = 1092) 45 mL/min/1.73 sq m ESTIMATED GFR IS NOT ACCURATE CREATININE CLEARANCE IN PREDICTING GLOMERULAR FILTRATION RATE. ESTIMATED GFR IS NOT APPLICABLE FOR DIALYSIS PATIENTS. Supervisor Pre Wave ID - NAUN WBASIC METABOLIC [id number] 20:54:00* Test Item Value Reference Range Interpretation Comments SODIUM (BEAKER) (test code = 381) 136 meq/L 136-145 POTASSIUM (BEAKER) (test code = 379) 4.3 meq/L 3.5-5.1 CHLORIDE (BEAKER) (test code = 382) 95 meq/L 98-107 L CO2 (BEAKER) (test code = 355) 39 meq/L 22-29 H BLOOD UREA NITROGEN (BEAKER) (test code = 354) 51 mg/dL 7-21 H CREATININE (BEAKER) (test code = 358) 1.27 mg/dL 0.57-1.25 H GLUCOSE RANDOM (BEAKER) (test code = 652) 160 mg/dL 70-105 H CALCIUM (BEAKER) (test code = 697) 9.3 mg/dL 8.4-10.2 EGFR (BEAKER) (test code = 1092) 55 mL/min/1.73 sq m ESTIMATED GFR IS NOT ACCURATE CREATININE CLEARANCE IN PREDICTING GLOMERULAR FILTRATION RATE. ESTIMATED GFR IS NOT APPLICABLE FOR DIALYSIS PATIENTS. Supervisor Pre Wave ID - BSHEMOGLOBIN AND [id number] 20:45:00* Test Item Value Reference Range Interpretation Comments HEMOGLOBIN (BEAKER) (test code = 410) 11.0 GM/DL 13.7-17.5 L HEMATOCRIT (BEAKER) (test code = 411) 37.3 % 40.1-51.0 L Supervisor Pre Wave ID - 6000POCT-GLUCOSE [id number] 17:53:00* Test Item Value Reference Range Interpretation Comments POC-GLUCOSE METER (BEAKER) (test code = 1538) 78 mg/dL 70-110 : TESTED AT [address], [address]: Supervisor Pre Wave/Rail Specialist ID = [id number] for CINDI CASTELLON POC ACTIVATED CLOTTING [id number] 17:05:00* Test Item Value Reference Range Interpretation Comments Activated Clotting Time (test code = 441) 191 sec : 74-137 seconds, Baseline: TESTED AT [address], [address]: Supervisor Pre Wave/Rail Specialist ID = [id number] for SILVERIO KELLOGG [id number] 17:05:00* Test Item Value Reference Range Interpretation Comments ACTIVATED CLOTTING TIME (BEAKER) (test code = 441) 191 sec : 74-137 seconds, Baseline: TESTED AT [address], [address]: Supervisor Pre Wave/Rail Specialist ID = [id number] for SILVERIO KELLOGG HEMOGLOBIN AND [id number] 15:42:00* Test Item Value Reference Range Interpretation Comments HEMOGLOBIN (BEAKER) (test code = 410) 11.3 GM/DL 13.7-17.5 L HEMATOCRIT (BEAKER) (test code = 411) 37.4 % 40.1-51.0 L Supervisor Pre Wave ID - [id number] 14:27:00* Test Item Value Reference Range Interpretation Comments ACTIVATED CLOTTING TIME (BEAKER) (test code = 441) 290 sec : 74-137 seconds, Baseline: TESTED AT [address], [address]: Supervisor Pre Wave/Rail Specialist ID = [id number] for Noam Swift [id number] 14:27:00* Test Item Value Reference Range Interpretation Comments ACTIVATED CLOTTING TIME (BEAKER) (test code = 441) 290 sec : 74-137 seconds, Baseline: TESTED AT [address], [address]: Supervisor Pre Wave/Rail Specialist ID = [id number] for AdeolaNicolasa Blood gas, [id number] 12:25:00* Test Item Value Reference Range Interpretation Comments pH, Arterial (test code = 2744-1) 7.34 7.35-7.45 L pCO2, Arterial (test code = 2019-8) 70 35- 45 mmHg HH pO2, Arterial (test code = 2703-7) 186 80- 90 mmHg H O2 Sat, Arterial (test code = 2708-6) 99.1 % 96-97 H HCO3, Arterial (test code = 1960-4) 37 mmol/L 21-29 H Base Excess, Arterial (test code = 1925-7) 8.9 mmol/L -2-3 H Patient Temperature (test code = 8310-5) 37.0 C FIO2 (test code = 1819) 36 % Lab Interpretation (test code = 13837-0) [facility]normal [facility] [id number] 12:25:00* Test Item Value Reference Range Interpretation Comments PH ARTERIAL (BEAKER) (test code = 383) 7.34 7.35-7.45 L PCO2 ARTERIAL (BEAKER) (test code = 384) 70 mmHg 35-45 HH PO2 ARTERIAL (BEAKER) (test code = 385) 186 mmHg 80-90 H O2 SATURATION ARTERIAL (BEAKER) (test code = 386) 99.1 % 96.0 -97.0 H HCO3 ARTERIAL (BEAKER) (test code = 388) 37 mmol/L 21-29 H BASE EXCESS ARTERIAL (BEAKER) (test code = 387) 8.9 mmol/L -2.0-3 .0 H PATIENT TEMPERATURE (BEAKER) (test code = 1818) 37.0 C FIO2 (BEAKER) (test code = 1819) 36.0 % [id number] 12:05:00* Test Item Value Reference Range Interpretation Comments ACTIVATED CLOTTING TIME (BEAKER) (test code = 441) 263 sec : 74-137 seconds, Baseline: TESTED AT [address], [address]: Supervisor Pre Wave/Rail Specialist ID = [id number] for Sukhdeep Mirn [id number] 12:05:00* Test Item Value Reference Range Interpretation Comments ACTIVATED CLOTTING TIME (BEAKER) (test code = 441) 208 sec : 74-137 seconds, Baseline: TESTED AT [address], [address]: Supervisor Pre Wave/Rail Specialist ID = [id number] for [place]ukhdeep lovingn CBC W/PLT COUNT & AUTO [id number] 06:00:00* Test Item Value Reference Range Interpretation Comments WHITE BLOOD CELL COUNT (BEAKER) (test code = 775) 7.5 K/ L 3.5- 10.5 RED BLOOD CELL COUNT (BEAKER) (test code = 761) 3.62 M/ L 4.63-6 .08 L HEMOGLOBIN (BEAKER) (test code = 410) 10.9 GM/DL 13.7-17.5 L HEMATOCRIT (BEAKER) (test code = 411) 36.5 % 40.1-51.0 L MEAN CORPUSCULAR VOLUME (BEAKER) (test code = 753) 100.8 fL 79. 0-92.2 H MEAN CORPUSCULAR HEMOGLOBIN (BEAKER) (test code = 751) 30.1 pg 25.7-32.2 MEAN CORPUSCULAR HEMOGLOBIN CONC (BEAKER) (test code = 752) 29.9 GM/DL 32.3-36.5 L RED CELL DISTRIBUTION WIDTH (BEAKER) (test code = 412) 16.9 % 11.6-14.4 H PLATELET COUNT (BEAKER) (test code = 756) 120 K/CU MM 150-450 L MEAN PLATELET VOLUME (BEAKER) (test code = 754) 12.1 fL 9.4-12 .4 NUCLEATED RED BLOOD CELLS (BEAKER) (test code = 413) 0 /100 WBC 0 -0 NEUTROPHILS RELATIVE PERCENT (BEAKER) (test code = 429) 83 % LYMPHOCYTES RELATIVE PERCENT (BEAKER) (test code = 430) 9 % MONOCYTES RELATIVE PERCENT (BEAKER) (test code = 431) 6 % EOSINOPHILS RELATIVE PERCENT (BEAKER) (test code = 432) 1 % BASOPHILS RELATIVE PERCENT (BEAKER) (test code = 437) 0 % NEUTROPHILS ABSOLUTE COUNT (BEAKER) (test code = 670) 6.20 K/ L 1.78-5.38 H LYMPHOCYTES ABSOLUTE COUNT (BEAKER) (test code = 414) 0.70 K/ L 1.32-3.57 L MONOCYTES ABSOLUTE COUNT (BEAKER) (test code = 415) 0.41 K/ L 0. 30-0.82 EOSINOPHILS ABSOLUTE COUNT (BEAKER) (test code = 416) 0.04 K/ L 0.04-0.54 BASOPHILS ABSOLUTE COUNT (BEAKER) (test code = 417) 0.01 K/ L 0. 01-0.08 IMMATURE GRANULOCYTES-RELATIVE PERCENT (BEAKER) (test code = 2801) 2 % 0-1 H [id number] 05:45:00* Test Item Value Reference Range Interpretation Comments MAGNESIUM (BEAKER) (test code = 627) 2.3 mg/dL 1.6-2.6 Specimen slightly hemolyzed Supervisor Pre Wave ID - [id number] 05:45:00* Test Item Value Reference Range Interpretation Comments PHOSPHORUS (BEAKER) (test code = 604) 3.0 mg/dL 2.3-4.7 Specimen slightly hemolyzed Supervisor Pre Wave ID - BSCOMPREHENSIVE METABOLIC [id number] 05:45:00* Test Item Value Reference Range Interpretation Comments TOTAL PROTEIN (BEAKER) (test code = 770) 6.0 gm/dL 6.0-8.3 Specimen slightly hemolyzed ALBUMIN (BEAKER) (test code = 1145) 3.6 g/dL 3.5-5.0 Specimen slightly hemolyzed ALKALINE PHOSPHATASE (BEAKER) (test code = 346) 94 U/L 40-150 BILIRUBIN TOTAL (BEAKER) (test code = 377) 0.7 mg/dL 0.2-1.2 Specimen slightly hemolyzed SODIUM (BEAKER) (test code = 381) 135 meq/L 136-145 L POTASSIUM (BEAKER) (test code = 379) 4.4 meq/L 3.5-5.1 Specimen slightly hemolyzed CHLORIDE (BEAKER) (test code = 382) 95 meq/L 98-107 L CO2 (BEAKER) (test code = 355) 30 meq/L 22-29 H BLOOD UREA NITROGEN (BEAKER) (test code = 354) 61 mg/dL 7-21 H CREATININE (BEAKER) (test code = 358) 1.55 mg/dL 0.57-1.25 H Specimen slightly hemolyzed GLUCOSE RANDOM (BEAKER) (test code = 652) 255 mg/dL 70-105 H CALCIUM (BEAKER) (test code = 697) 8.8 mg/dL 8.4-10.2 AST (SGOT) (BEAKER) (test code = 353) 24 U/L 5-34 Specimen slightly hemolyzed ALT (SGPT) (BEAKER) (test code = 347) 28 U/L 6-55 Specimen slightly hemolyzed EGFR (BEAKER) (test code = 1092) 44 mL/min/1.73 sq m ESTIMATED GFR IS NOT ACCURATE CREATININE CLEARANCE IN PREDICTING GLOMERULAR FILTRATION RATE. ESTIMATED GFR IS NOT APPLICABLE FOR DIALYSIS PATIENTS. Supervisor Pre Wave ID - BSCALCIUM, [id number] 05:17:00* Test Item Value Reference Range Interpretation Comments CALCIUM IONIZED (BEAKER) (test code = 698) 1.17 mmol/L 1.12-1.27 PH, BLOOD (BEAKER) (test code = 1810) 7.40 POCT-GLUCOSE [id number] 23:36:00* Test Item Value Reference Range Interpretation Comments POC-GLUCOSE METER (BEAKER) (test code = 1538) 267 mg/dL 70-110 H : TESTED AT [facility] [address] [facility] [facility], [address]: Supervisor Pre Wave/Rail Specialist ID = [id number] for JUAN MANUEL HERNANDEZ, [id number] 13:29:00* Test Item Value Reference Range Interpretation Comments ABO Grouping (test code = 2588) O Rh Factor (test code = 2589) [facility] [id number] 08:20:00* Test Item Value Reference Range Interpretation Comments POC-GLUCOSE METER (BEAKER) (test code = 1538) 127 mg/dL 70-110 H : TESTED AT [facility] [address] [facility] [address], [address]: Supervisor Pre Wave/Rail Specialist ID = [id number] for CINDI CASTELLON Type and screen, [id number] 07:47:00* Test Item Value Reference Range Interpretation Comments ABO/RH AUTOMATED (BEAKER) (test code = 2260) O POSITIVE Ab Scrn (test code = 890-4) NEGATIVE [facility] METABOLIC [id number] 07:35:00* Test Item Value Reference Range Interpretation Comments SODIUM (BEAKER) (test code = 381) 137 meq/L 136-145 POTASSIUM (BEAKER) (test code = 379) 4.6 meq/L 3.5-5.1 CHLORIDE (BEAKER) (test code = 382) 93 meq/L 98-107 L CO2 (BEAKER) (test code = 355) 36 meq/L 22-29 H BLOOD UREA NITROGEN (BEAKER) (test code = 354) 58 mg/dL 7-21 H CREATININE (BEAKER) (test code = 358) 1.54 mg/dL 0.57-1.25 H GLUCOSE RANDOM (BEAKER) (test code = 652) 212 mg/dL 70-105 H CALCIUM (BEAKER) (test code = 697) 8.9 mg/dL 8.4-10.2 EGFR (BEAKER) (test code = 1092) 44 mL/min/1.73 sq m ESTIMATED GFR IS NOT ACCURATE CREATININE CLEARANCE IN PREDICTING GLOMERULAR FILTRATION RATE. ESTIMATED GFR IS NOT APPLICABLE FOR DIALYSIS PATIENTS. Supervisor Pre Wave ID - MAYA [id number] 07:32:00* Test Item Value Reference Range Interpretation Comments MAGNESIUM (BEAKER) (test code = 627) 2.4 mg/dL 1.6-2.6 Supervisor Pre Wave ID - MAYA FBASIC METABOLIC [id number] 06:39:00* Test Item Value Reference Range Interpretation Comments SODIUM (BEAKER) (test code = 381) 147 meq/L 136-145 H POTASSIUM (BEAKER) (test code = 379) 2.5 meq/L 3.5-5.1 LL CHLORIDE (BEAKER) (test code = 382) 117 meq/L 98-107 H CO2 (BEAKER) (test code = 355) 26 meq/L 22-29 BLOOD UREA NITROGEN (BEAKER) (test code = 354) 41 mg/dL 7-21 H CREATININE (BEAKER) (test code = 358) 0.78 mg/dL 0.57-1.25 GLUCOSE RANDOM (BEAKER) (test code = 652) 140 mg/dL 70-105 H CALCIUM (BEAKER) (test code = 697) 5.4 mg/dL 8.4-10.2 LL EGFR (BEAKER) (test code = 1092) 97 mL/min/1.73 sq m ESTIMATED GFR IS NOT ACCURATE CREATININE CLEARANCE IN PREDICTING GLOMERULAR FILTRATION RATE. ESTIMATED GFR IS NOT APPLICABLE FOR DIALYSIS PATIENTS. Supervisor Pre Wave ID - [id number] 05:46:00* Test Item Value Reference Range Interpretation Comments PHOSPHORUS (BEAKER) (test code = 604) 1.6 mg/dL 2.3-4.7 L Supervisor Pre Wave ID - [id number] 05:46:00* Test Item Value Reference Range Interpretation Comments MAGNESIUM (BEAKER) (test code = 627) 1.4 mg/dL 1.6-2.6 L Supervisor Pre Wave ID - EDASIPOCT-GLUCOSE [id number] 23:02:00* Test Item Value Reference Range Interpretation Comments POC-GLUCOSE METER (BEAKER) (test code = 1538) 177 mg/dL 70-110 H : TESTED AT [address], [address]: Supervisor Pre Wave/Rail Specialist ID = [id number] for ARIS PADILLA POCT-GLUCOSE [id number] 16:21:00* Test Item Value Reference Range Interpretation Comments POC-GLUCOSE METER (BEAKER) (test code = 1538) 292 mg/dL 70-110 H : Notified RN/MD: TESTED AT [address], [address]: Supervisor Pre Wave/Rail Specialist ID = [id number] for NANCY MARES POCT-GLUCOSE [id number] 11:21:00* Test Item Value Reference Range Interpretation Comments POC-GLUCOSE METER (BEAKER) (test code = 1538) 166 mg/dL 70-110 H : TESTED AT [address], [address]: Supervisor Pre Wave/Rail Specialist ID = [id number] for LUCIA MARESAURACHEL POCT-GLUCOSE [id number] 06:20:00* Test Item Value Reference Range Interpretation Comments POC-GLUCOSE METER (BEAKER) (test code = 1538) 182 mg/dL 70-110 H : Notified RN/MD: TESTED AT [address], [address]: Supervisor Pre Wave/Rail Specialist ID = [id number] for BUNNY PINEDA CALCIUM, [id number] 05:45:00* Test Item Value Reference Range Interpretation Comments CALCIUM IONIZED (BEAKER) (test code = 698) 1.14 mmol/L 1.12-1.27 PH, BLOOD (BEAKER) (test code = 1810) 7.30 [id number] 05:44:00* Test Item Value Reference Range Interpretation Comments MAGNESIUM (BEAKER) (test code = 627) 2.4 mg/dL 1.6-2.6 Specimen slightly hemolyzed Supervisor Pre Wave ID - [id number] 05:44:00* Test Item Value Reference Range Interpretation Comments PHOSPHORUS (BEAKER) (test code = 604) 2.9 mg/dL 2.3-4.7 Specimen slightly hemolyzed Supervisor Pre Wave ID - DBBASIC METABOLIC [id number] 05:44:00* Test Item Value Reference Range Interpretation Comments SODIUM (BEAKER) (test code = 381) 138 meq/L 136-145 POTASSIUM (BEAKER) (test code = 379) 4.3 meq/L 3.5-5.1 Specimen slightly hemolyzed CHLORIDE (BEAKER) (test code = 382) 94 meq/L 98-107 L CO2 (BEAKER) (test code = 355) 32 meq/L 22-29 H BLOOD UREA NITROGEN (BEAKER) (test code = 354) 57 mg/dL 7-21 H CREATININE (BEAKER) (test code = 358) 1.70 mg/dL 0.57-1.25 H Specimen slightly hemolyzed GLUCOSE RANDOM (BEAKER) (test code = 652) 204 mg/dL 70-105 H CALCIUM (BEAKER) (test code = 697) 8.7 mg/dL 8.4-10.2 EGFR (BEAKER) (test code = 1092) 39 mL/min/1.73 sq m ESTIMATED GFR IS NOT ACCURATE CREATININE CLEARANCE IN PREDICTING GLOMERULAR FILTRATION RATE. ESTIMATED GFR IS NOT APPLICABLE FOR DIALYSIS PATIENTS. Supervisor Pre Wave ID - DBCBC W/PLT COUNT & AUTO [id number] 05:38:00* Test Item Value Reference Range Interpretation Comments WHITE BLOOD CELL COUNT (BEAKER) (test code = 775) 14.8 K/ L 3.5- 10.5 H RED BLOOD CELL COUNT (BEAKER) (test code = 761) 4.04 M/ L 4.63-6 .08 L HEMOGLOBIN (BEAKER) (test code = 410) 12.1 GM/DL 13.7-17.5 L HEMATOCRIT (BEAKER) (test code = 411) 41.2 % 40.1-51.0 MEAN CORPUSCULAR VOLUME (BEAKER) (test code = 753) 102.0 fL 79. 0-92.2 H MEAN CORPUSCULAR HEMOGLOBIN (BEAKER) (test code = 751) 30.0 pg 25.7-32.2 MEAN CORPUSCULAR HEMOGLOBIN CONC (BEAKER) (test code = 752) 29.4 GM/DL 32.3-36.5 L RED CELL DISTRIBUTION WIDTH (BEAKER) (test code = 412) 16.9 % 11.6-14.4 H PLATELET COUNT (BEAKER) (test code = 756) 131 K/CU MM 150-450 L MEAN PLATELET VOLUME (BEAKER) (test code = 754) 11.3 fL 9.4-12 .4 NUCLEATED RED BLOOD CELLS (BEAKER) (test code = 413) 0 /100 WBC 0 -0 NEUTROPHILS RELATIVE PERCENT (BEAKER) (test code = 429) 85 % LYMPHOCYTES RELATIVE PERCENT (BEAKER) (test code = 430) 8 % MONOCYTES RELATIVE PERCENT (BEAKER) (test code = 431) 6 % EOSINOPHILS RELATIVE PERCENT (BEAKER) (test code = 432) 0 % BASOPHILS RELATIVE PERCENT (BEAKER) (test code = 437) 0 % NEUTROPHILS ABSOLUTE COUNT (BEAKER) (test code = 670) 12.47 K/ L 1.78-5.38 H LYMPHOCYTES ABSOLUTE COUNT (BEAKER) (test code = 414) 1.17 K/ L 1.32-3.57 L MONOCYTES ABSOLUTE COUNT (BEAKER) (test code = 415) 0.83 K/ L 0. 30-0.82 H EOSINOPHILS ABSOLUTE COUNT (BEAKER) (test code = 416) 0.02 K/ L 0.04-0.54 L BASOPHILS ABSOLUTE COUNT (BEAKER) (test code = 417) 0.02 K/ L 0. 01-0.08 IMMATURE GRANULOCYTES-RELATIVE PERCENT (BEAKER) (test code = 2801) 2 % 0-1 H POCT-GLUCOSE [id number] 22:25:00* Test Item Value Reference Range Interpretation Comments POC-GLUCOSE METER (BEAKER) (test code = 1538) 218 mg/dL 70-110 H : Notified RN/MD: TESTED AT [address], [address]: Supervisor Pre Wave/Rail Specialist ID = [id number] for BUNNY PINEDA BASIC METABOLIC [id number] 17:08:00* Test Item Value Reference Range Interpretation Comments SODIUM (BEAKER) (test code = 381) 136 meq/L 136-145 POTASSIUM (BEAKER) (test code = 379) 4.1 meq/L 3.5-5.1 CHLORIDE (BEAKER) (test code = 382) 89 meq/L 98-107 L CO2 (BEAKER) (test code = 355) 39 meq/L 22-29 H BLOOD UREA NITROGEN (BEAKER) (test code = 354) 54 mg/dL 7-21 H CREATININE (BEAKER) (test code = 358) 1.67 mg/dL 0.57-1.25 H GLUCOSE RANDOM (BEAKER) (test code = 652) 467 mg/dL 70-105 HH CALCIUM (BEAKER) (test code = 697) 9.0 mg/dL 8.4-10.2 EGFR (BEAKER) (test code = 1092) 40 mL/min/1.73 sq m ESTIMATED GFR IS NOT ACCURATE CREATININE CLEARANCE IN PREDICTING GLOMERULAR FILTRATION RATE. ESTIMATED GFR IS NOT APPLICABLE FOR DIALYSIS PATIENTS. Supervisor Pre Wave ID - SEDA [id number] 17:06:00* Test Item Value Reference Range Interpretation Comments MAGNESIUM (BEAKER) (test code = 627) 2.1 mg/dL 1.6-2.6 Supervisor Pre Wave ID - SEDA MPOCT-GLUCOSE [id number] 16:25:00* Test Item Value Reference Range Interpretation Comments POC-GLUCOSE METER (BEAKER) (test code = 1538) 301 mg/dL 70-110 H : TESTED AT [facility] [address] [facility] [address] [facility], [address]: Supervisor Pre Wave/Rail Specialist ID = [id number] for JOANNTOPHERAS POCT-GLUCOSE [id number] 11:24:00* Test Item Value Reference Range Interpretation Comments POC-GLUCOSE METER (BEAKER) (test code = 1538) 220 mg/dL 70-110 H : TESTED AT [facility] [address] [facility] [address], [address]: Supervisor Pre Wave/Rail Specialist ID = [id number] for JOANN, BRENNEN Platelet Aggregation: Function [id number] 08:15:00* Test Item Value Reference Range Interpretation Comments Pathologist: (test code = 2622) Jermaine Swan M.D. (electonic sign [facility]) Platelets (test code = 2656) 134 150- 450 K/CU MM L ADP (test code = 24766-6) 10 % 62-100 L Platelet Rich Plasma (test code = 2134) 225 200- 300 k/cu mm Plt. Function Screen Interpretation (test code = 4655) Decreased aggregation with ADP which indicates platelet dysfunction that may be due to medication effect, uremia, or other platelet function disorders. Clinical correlation is required. MARCO (test code = MARCO) Platelet Function Screen res ults may be falsely low with platelet counts<75,000/cu mm.Supervisor Pre Wave ID - [id number] ID - [id number] ID - [id number] Lab Interpretation (test code = 91076-1) [facility] FUNCTION [id number] 08:15:00* Test Item Value Reference Range Interpretation Comments [id number] (BEAKER) (test code = 2622) Cat Swan M.D. (electonic signature) PLATELET COUNT AGG (BEAKER) (test code = 2656) 134 K/CU MM 150-450 L ADP (BEAKER) (test code = 4654) 10 % 62-100 L PLATELET RICH PLASMA(BEAKER) (test code = 2134) 225 k/cu mm 200-30 0 PLATELET FUNCTION SCREEN INTERPRETATION (BEAKER) (test code = 4655) Decreased aggregation with ADP which indicates platelet dysfunction that may be due to medication effect, uremia, or other platelet function disorders. Clinical correlation is required. Platelet Function Screen results may be falsely low with platelet counts< 75,000/cu mm.Supervisor Pre Wave ID - [id number] ID - [id number] ID - [id number] AGGREGATION: FUNCTION [id number] 08:15:00* Test Item Value Reference Range Interpretation Comments [id number] (BEAKER) (test code = 2622) Cat Swan M.D. (electonic signature) PLATELET COUNT AGG (BEAKER) (test code = 2656) 155 K/CU MM 150-450 ADP (BEAKER) (test code = 4654) 7 % 62-100 L PLATELET RICH PLASMA(BEAKER) (test code = 2134) 237 k/cu mm 200-30 0 PLATELET FUNCTION SCREEN INTERPRETATION (BEAKER) (test code = 4655) Decreased aggregation with ADP which indicates platelet dysfunction that may be due to medication effect, uremia, or other platelet function disorders. Clinical correlation is required. Platelet Function Screen results may be falsely low with platelet counts< 75,000/cu mm.Supervisor Pre Wave ID - [id number]-GLUCOSE [id number] 07:16:00* Test Item Value Reference Range Interpretation Comments POC-GLUCOSE METER (BEAKER) (test code = 1538) 91 mg/dL 70-110 : TESTED AT [address] [place], [address]: Supervisor Pre Wave/Rail Specialist ID = [id number] for BRENNEN DAVID [id number] 05:37:00* Test Item Value Reference Range Interpretation Comments PHOSPHORUS (BEAKER) (test code = 604) 3.0 mg/dL 2.3-4.7 Supervisor Pre Wave ID - SEDA [id number] 05:37:00* Test Item Value Reference Range Interpretation Comments MAGNESIUM (BEAKER) (test code = 627) 2.3 mg/dL 1.6-2.6 Supervisor Pre Wave ID - SEDA MCOMPREHENSIVE METABOLIC [id number] 05:37:00* Test Item Value Reference Range Interpretation Comments TOTAL PROTEIN (BEAKER) (test code = 770) 6.2 gm/dL 6.0-8.3 ALBUMIN (BEAKER) (test code = 1145) 3.8 g/dL 3.5-5.0 ALKALINE PHOSPHATASE (BEAKER) (test code = 346) 97 U/L 40-150 BILIRUBIN TOTAL (BEAKER) (test code = 377) 0.5 mg/dL 0.2-1.2 SODIUM (BEAKER) (test code = 381) 140 meq/L 136-145 POTASSIUM (BEAKER) (test code = 379) 4.0 meq/L 3.5-5.1 CHLORIDE (BEAKER) (test code = 382) 93 meq/L 98-107 L CO2 (BEAKER) (test code = 355) 38 meq/L 22-29 H BLOOD UREA NITROGEN (BEAKER) (test code = 354) 53 mg/dL 7-21 H CREATININE (BEAKER) (test code = 358) 1.42 mg/dL 0.57-1.25 H GLUCOSE RANDOM (BEAKER) (test code = 652) 149 mg/dL 70-105 H CALCIUM (BEAKER) (test code = 697) 8.9 mg/dL 8.4-10.2 AST (SGOT) (BEAKER) (test code = 353) 19 U/L 5-34 ALT (SGPT) (BEAKER) (test code = 347) 27 U/L 6-55 EGFR (BEAKER) (test code = 1092) 49 mL/min/1.73 sq m ESTIMATED GFR IS NOT ACCURATE CREATININE CLEARANCE IN PREDICTING GLOMERULAR FILTRATION RATE. ESTIMATED GFR IS NOT APPLICABLE FOR DIALYSIS PATIENTS. Supervisor Pre Wave ID - SEDA MCALCIUM, [id number] 05:18:00* Test Item Value Reference Range Interpretation Comments CALCIUM IONIZED (BEAKER) (test code = 698) 1.14 mmol/L 1.12-1.27 PH, BLOOD (BEAKER) (test code = 1810) 7.32 CBC W/PLT COUNT & AUTO [id number] 05:02:00* Test Item Value Reference Range Interpretation Comments WHITE BLOOD CELL COUNT (BEAKER) (test code = 775) 11.0 K/ L 3.5- 10.5 H RED BLOOD CELL COUNT (BEAKER) (test code = 761) 4.10 M/ L 4.63-6 .08 L HEMOGLOBIN (BEAKER) (test code = 410) 12.4 GM/DL 13.7-17.5 L HEMATOCRIT (BEAKER) (test code = 411) 41.2 % 40.1-51.0 MEAN CORPUSCULAR VOLUME (BEAKER) (test code = 753) 100.5 fL 79. 0-92.2 H MEAN CORPUSCULAR HEMOGLOBIN (BEAKER) (test code = 751) 30.2 pg 25.7-32.2 MEAN CORPUSCULAR HEMOGLOBIN CONC (BEAKER) (test code = 752) 30.1 GM/DL 32.3-36.5 L RED CELL DISTRIBUTION WIDTH (BEAKER) (test code = 412) 16.7 % 11.6-14.4 H PLATELET COUNT (BEAKER) (test code = 756) 135 K/CU MM 150-450 L MEAN PLATELET VOLUME (BEAKER) (test code = 754) 10.9 fL 9.4-12 .4 NUCLEATED RED BLOOD CELLS (BEAKER) (test code = 413) 0 /100 WBC 0 -0 NEUTROPHILS RELATIVE PERCENT (BEAKER) (test code = 429) 83 % LYMPHOCYTES RELATIVE PERCENT (BEAKER) (test code = 430) 8 % MONOCYTES RELATIVE PERCENT (BEAKER) (test code = 431) 7 % EOSINOPHILS RELATIVE PERCENT (BEAKER) (test code = 432) 0 % BASOPHILS RELATIVE PERCENT (BEAKER) (test code = 437) 0 % NEUTROPHILS ABSOLUTE COUNT (BEAKER) (test code = 670) 9.18 K/ L 1.78-5.38 H LYMPHOCYTES ABSOLUTE COUNT (BEAKER) (test code = 414) 0.89 K/ L 1.32-3.57 L MONOCYTES ABSOLUTE COUNT (BEAKER) (test code = 415) 0.75 K/ L 0. 30-0.82 EOSINOPHILS ABSOLUTE COUNT (BEAKER) (test code = 416) 0.02 K/ L 0.04-0.54 L BASOPHILS ABSOLUTE COUNT (BEAKER) (test code = 417) 0.02 K/ L 0. 01-0.08 IMMATURE GRANULOCYTES-RELATIVE PERCENT (BEAKER) (test code = 2801) 2 % 0-1 H POCT-GLUCOSE [id number] 21:27:00* Test Item Value Reference Range Interpretation Comments POC-GLUCOSE METER (BEAKER) (test code = 1538) 330 mg/dL 70-110 H : TESTED AT [address], [address]: Supervisor Pre Wave/Rail Specialist ID = [id number] for FABIO PARISH BASIC METABOLIC [id number] 18:14:00* Test Item Value Reference Range Interpretation Comments SODIUM (BEAKER) (test code = 381) 138 meq/L 136-145 POTASSIUM (BEAKER) (test code = 379) 4.4 meq/L 3.5-5.1 Specimen slightly hemolyzed CHLORIDE (BEAKER) (test code = 382) 90 meq/L 98-107 L CO2 (BEAKER) (test code = 355) 41 meq/L 22-29 HH BLOOD UREA NITROGEN (BEAKER) (test code = 354) 56 mg/dL 7-21 H CREATININE (BEAKER) (test code = 358) 1.61 mg/dL 0.57-1.25 H Specimen slightly hemolyzed GLUCOSE RANDOM (BEAKER) (test code = 652) 394 mg/dL 70-105 H CALCIUM (BEAKER) (test code = 697) 8.4 mg/dL 8.4-10.2 EGFR (BEAKER) (test code = 1092) 42 mL/min/1.73 sq m ESTIMATED GFR IS NOT ACCURATE CREATININE CLEARANCE IN PREDICTING GLOMERULAR FILTRATION RATE. ESTIMATED GFR IS NOT APPLICABLE FOR DIALYSIS PATIENTS. Supervisor Pre Wave ID - [id number] 18:11:00* Test Item Value Reference Range Interpretation Comments MAGNESIUM (BEAKER) (test code = 627) 2.3 mg/dL 1.6-2.6 Specimen slightly hemolyzed Supervisor Pre Wave ID - BSSARS-COV2/RT-PCR ([facility])2020-07-14 16:56:00* Test Item Value Reference Range Interpretation Comments SARS-COV2/RT-PCR (test code = 5317201) Negative N ot Detected, Negative, See external report for linked test SARS-COV-2 PERFORMING LAB (test code = 0960767) [facility] Negative result for this test determines that SARS-CoV-2 RNA was not present in the specimen above the Limit of Detection (LOD). However, Negative results do n ot preclude SARS-CoV-2 infection and should not be used as the sole basis for tr eatment or patient management decisions. Negative results must be combined with clinical observations, patient history, and epidemiological information. A false negative result may occur if a specimen is improperly collected, transported or handled. A false negative result should be considered if patient's recent expo sures or clinical presentation indicate that COVID-19 (SARS-CoV-2) is likely and diagnostic tests for other causes of illness are negative. Re-testing should be considered in cases of suspected false negatives.The limit of detection for this assay is 800 copies/mL.This SARS CoV-2 test is a real-time RT-PCR test intended for the qualitative detection of nucleic acid from SARS-CoV-2 in a nasopharyn geal swab specimen collected from individuals suspected of COVID-19 by their [facility] provider.This test has not been Food and Drug Administration (FDA) clear ed or approved. This is a modified version of an approved Emergency Use Authori zation (EUA) and is in the process of review by the FDA. Once authorized by [facility] FDA, the issued EUA will be effective until the declaration that circumstances exist justifying the authorization of the emergency use of in vitro diagnostic tests for detection and/or diagnosis of COVID-19 is terminated under Section 564 (b)(2) of the Act or the EUA is revoked under Section 564(g) of the Act.Fact She et for Healthcare Providers:https://www.[employer]/sites/default/files/product/d ocuments/Hysy_Sxazy_OY_Khozzockx_Ukto_NMXV-LiI-8.pdfFact Sheet for Healthcare Pa david:https://www.[employer]/sites/default/files/product/documents/Fact_Sheet_P oyfzeyq_Xgte_IKEP-QfB-1.pdfPerforming Laboratory:[facility] [address] [facility].[place], [place] [address]XXGQ-ZPXUYST [id number] 16:31:00* Test Item Value Reference Range Interpretation Comments POC-GLUCOSE METER (BEAKER) (test code = 1538) 260 mg/dL 70-110 H : TESTED AT [facility] [address] [facility], [address]: Supervisor Pre Wave/Rail Specialist ID = [id number] for AMANDA DERAS BLOOD GAS, [id number] 13:38:00* Test Item Value Reference Range Interpretation Comments PH ARTERIAL (BEAKER) (test code = 383) 7.42 7.35-7.45 PCO2 ARTERIAL (BEAKER) (test code = 384) 58 mmHg 35-45 H PO2 ARTERIAL (BEAKER) (test code = 385) 170 mmHg 80-90 H O2 SATURATION ARTERIAL (BEAKER) (test code = 386) 99.1 % 96.0 -97.0 H HCO3 ARTERIAL (BEAKER) (test code = 388) 37 mmol/L 21-29 H BASE EXCESS ARTERIAL (BEAKER) (test code = 387) 9.8 mmol/L -2.0-3 .0 H PATIENT TEMPERATURE (BEAKER) (test code = 1818) 37.0 C FIO2 (BEAKER) (test code = 1819) 40.0 % Pulmonary Funct Lab bedside [id number] 12:39:00Robert Hammer, MEDICAL COMMUNICATION SPECIALIST, CORRUGATED SHEET MATERIAL SHEETER 07/14/2020 12:46 [facility] PFT CHARTING REPORT Infection Control/Hand Hygiene procedures followed throughout the encounter with patient: YesPatient Identification Method: Patient name verified on armband, and Medical record on armband, Is the order complete?: Yes Account ID#: [id number] Name: Steve Benedict Birthdate: 1945 Age: 74 y.o. Sex: male Admission Date: 06/21/2020 Patient Status: Inpatient Reasons/Symptom for having the Test?: post transplant protocol Type of study/treatment ordered by physician: Lung volume and Single Breath DLCO Lab Results Component Value Date HGB 11.1 (L) 06/27 Ranges: Adult Male 13 - 16.8 g/dl Adult Female 12 - 15 g/dl 6 Minute Walk (read only) 07/14/2020 07/14/2020 07/14/2020 Pulse 86 85 87 SpO2 92 90 - Study Date: 07/14/2020 Study Time: 1239 ASSESSMENT Histor y & Physical Mode of Arrival: Ambulatory Pulse: 87 Resp: 18 SPO2: 95 % Ra Pain Assessment Pain:None TESTING/THERAPEUTICS Medications ordered or required for procedure: N/A PT EDUCATION/INSTRUCTIONS Barriers to learning: No known barriers to learning. Learning need identified: Yes, Patient/Family/Guradian was informed of the ordered study by the physician Barriers to performing study or treatment: Patient has no known disability to perform the study or treatment. DISCHARGE The study was completed in accordance with the physician's order and patient released from the lab without adverse outcome. [facility] DLCO (single breath diffusion)2020-07-14 12:39:00Robert Hammer, MEDICAL COMMUNICATION SPECIALIST, CORRUGATED SHEET MATERIAL SHEETER 07/14/2020 12:46 [facility] PFT CHARTING REPORT Infection Control/Hand Hygiene procedures followed throughout the encounter with patient: YesPatient Identification Method: Patient name verified on armband, and Medical record on armband, Is the order complete?: Yes Account ID#: [id number] Name: Steve Benedict Birthdate: 1945 Age: 74 y.o. Sex: male Admission Date: 06/21/2020 Patient Status: Inpatient Reasons/Symptom for having the Test?: post transplant protocol Type of study/treatment ordered by physician: Lung volume and Single Breath DLCO Lab Results Component Value Date HGB 11.1 (L) 06/27 Ranges: Adult Male 13 - 16.8 g/dl Adult Female 12 - 15 g/dl 6 Minute Walk (read only) 07/14/2020 07/14/2020 07/14/2020 Pulse 86 85 87 SpO2 92 90 - Study Date: 07/14/2020 Study Time: 1239 ASSESSMENT Histor y & Physical Mode of Arrival: Ambulatory Pulse: 87 Resp: 18 SPO2: 95 % Ra Pain Assessment Pain:None TESTING/THERAPEUTICS Medications ordered or required for procedure: N/A PT EDUCATION/INSTRUCTIONS Barriers to learning: No known barriers to learning. Learning need identified: Yes, Patient/Family/Guradian was informed of the ordered study by the physician Barriers to performing study or treatment: Patient has no known disability to perform the study or treatment. DISCHARGE The study was completed in accordance with the physician's order and patient released from the lab without adverse outcome. [facility] Lung [id number] 12:39:00Robert Hammer, MEDICAL COMMUNICATION SPECIALIST, CORRUGATED SHEET MATERIAL SHEETER 07/14/2020 12:46 [facility] PFT CHARTING REPORT Infection Control/Hand Hygiene procedures followed throughout the encounter with patient: YesPatient Identification Method: Patient name verified on armband, and Medical record on armband, Is the order complete?: Yes Account ID#: [id number] Name: Steve Benedict Birthdate: 1945 Age: 74 y.o. Sex: male Admission Date: 06/21/2020 Patient Status: Inpatient Reasons/Symptom for having the Test?: post transplant protocol Type of study/treatment ordered by physician: Lung volume and Single Breath DLCO Lab Results Component Value Date HGB 11.1 (L) 07/14/2020 Ranges: Adult Male 13 - 16.8 g/dl Adult Female 12 - 15 g/dl 6 Minute Walk (read only) 07/14/2020 07/14/2020 07/14/2020 Pulse 86 85 87 SpO2 92 90 - Study Date: 07/14/2020 Study Time: 1239 ASSESSMENT History & Physical Mode of Arrival: Ambulatory Pulse: 87 Resp: 18 SPO2: 95 % Ra Pain Assessment Pain:None TESTING/THERAPEUTICS Medications ordered or required for procedure: N/A PT EDUCATION/INSTRUCTIONS Barriers to learning: No known barriers to learning. Learning need identified: Yes, Patient/Family/Guradian was informed of the ordered study by the physician Barriers to performing study or treatment: Patient has no known disability to p erform the study or treatment. DISCHARGE The study was completed in accordance w ith the physician's order and patient released from the lab without adverse outc ome. [facility]00* Test Item Value Reference Range Interpretation Comments PHOSPHORUS (BEAKER) (test code = 604) 2.6 mg/dL 2.3-4.7 Supervisor Pre Wave ID Dawson SHRESTHA [id number] 06:46:00* Test Item Value Reference Range Interpretation Comments MAGNESIUM (BEAKER) (test code = 627) 2.2 mg/dL 1.6-2.6 Supervisor Pre Wave ID Dawson SHRESTHA LBASIC METABOLIC [id number] 06:46:00* Test Item Value Reference Range Interpretation Comments SODIUM (BEAKER) (test code = 381) 138 meq/L 136-145 POTASSIUM (BEAKER) (test code = 379) 3.7 meq/L 3.5-5.1 CHLORIDE (BEAKER) (test code = 382) 91 meq/L 98-107 L CO2 (BEAKER) (test code = 355) 38 meq/L 22-29 H BLOOD UREA NITROGEN (BEAKER) (test code = 354) 53 mg/dL 7-21 H CREATININE (BEAKER) (test code = 358) 1.38 mg/dL 0.57-1.25 H GLUCOSE RANDOM (BEAKER) (test code = 652) 191 mg/dL 70-105 H CALCIUM (BEAKER) (test code = 697) 8.5 mg/dL 8.4-10.2 EGFR (BEAKER) (test code = 1092) 50 mL/min/1.73 sq m ESTIMATED GFR IS NOT ACCURATE CREATININE CLEARANCE IN PREDICTING GLOMERULAR FILTRATION RATE. ESTIMATED GFR IS NOT APPLICABLE FOR DIALYSIS PATIENTS. Supervisor Pre Wave ID Dawson SHRESTHA LCBC W/PLT COUNT & AUTO [id number] 05:40:00* Test Item Value Reference Range Interpretation Comments WHITE BLOOD CELL COUNT (BEAKER) (test code = 775) 7.8 K/ L 3.5- 10.5 RED BLOOD CELL COUNT (BEAKER) (test code = 761) 3.69 M/ L 4.63-6 .08 L HEMOGLOBIN (BEAKER) (test code = 410) 11.1 GM/DL 13.7-17.5 L HEMATOCRIT (BEAKER) (test code = 411) 37.5 % 40.1-51.0 L MEAN CORPUSCULAR VOLUME (BEAKER) (test code = 753) 101.6 fL 79. 0-92.2 H MEAN CORPUSCULAR HEMOGLOBIN (BEAKER) (test code = 751) 30.1 pg 25.7-32.2 MEAN CORPUSCULAR HEMOGLOBIN CONC (BEAKER) (test code = 752) 29.6 GM/DL 32.3-36.5 L RED CELL DISTRIBUTION WIDTH (BEAKER) (test code = 412) 16.9 % 11.6-14.4 H PLATELET COUNT (BEAKER) (test code = 756) 116 K/CU MM 150-450 L MEAN PLATELET VOLUME (BEAKER) (test code = 754) 11.5 fL 9.4-12 .4 NUCLEATED RED BLOOD CELLS (BEAKER) (test code = 413) 0 /100 WBC 0 -0 NEUTROPHILS RELATIVE PERCENT (BEAKER) (test code = 429) 78 % LYMPHOCYTES RELATIVE PERCENT (BEAKER) (test code = 430) 12 % MONOCYTES RELATIVE PERCENT (BEAKER) (test code = 431) 6 % EOSINOPHILS RELATIVE PERCENT (BEAKER) (test code = 432) 0 % BASOPHILS RELATIVE PERCENT (BEAKER) (test code = 437) 0 % NEUTROPHILS ABSOLUTE COUNT (BEAKER) (test code = 670) 6.09 K/ L 1.78-5.38 H LYMPHOCYTES ABSOLUTE COUNT (BEAKER) (test code = 414) 0.94 K/ L 1.32-3.57 L MONOCYTES ABSOLUTE COUNT (BEAKER) (test code = 415) 0.50 K/ L 0. 30-0.82 EOSINOPHILS ABSOLUTE COUNT (BEAKER) (test code = 416) 0.02 K/ L 0.04-0.54 L BASOPHILS ABSOLUTE COUNT (BEAKER) (test code = 417) 0.03 K/ L 0. 01-0.08 IMMATURE GRANULOCYTES-RELATIVE PERCENT (BEAKER) (test code = 2801) 3 % 0-1 H Oxygen saturation, [id number] 05:35:00* Test Item Value Reference Range Interpretation Comments O2 Saturation (Measured) (test code = 89717-4) 82.1 % [facility], [id number] 05:35:00* Test Item Value Reference Range Interpretation Comments O2 SATURATION (MEASURED) (BEAKER) (test code = 1455) 82.1 % PAUL's with PT and DP doppler [id number] 22:09:56Ejection FractionSLE ECHO HEARTLAB MKCKESSON CPACSRight Impression1. The posterior tibial and dorsalis pedis arteries are patent with normaltriphasic Doppler waveforms.2. The PT pressure is 140 mmHg with an PAUL of 1.25 and the DP pressure is 94mmHg with an PAUL of 0.84, within normal range.3. There is adequate flow to the 1st,2nd and 3rd digits by PPG waveforms.4. There is decreased flow to the 4th and 5th digits by PPG waveforms.5. The great toe pressure is 120 mmHg with a normal TBI of 1.07.Left Impression1. The posterior tibial and dorsalis pedis arteries are patent withtriphasic/biphasic doppler waveforms Doppler waveforms.2. The PAUL's were not obtained due to pain and bandages.3. There is adequate flow to the digits by PPG waveforms.4. The great toe pressure is 128 mmHg with a normal TBI of 1.14. Conclusions Summary Arterial pressures and Doppler waveforms were performed on the right lower extremity. The posterior tibial and dorsalis pedis arteries were patent with normal triphasic Doppler waveforms. The PT pressure was 140 mmHg with an PAUL of 1.25 and the DP pressure is 94 mmHg with an PAUL of 0 .84, within normal range. There was adequate flow to the 1st,2nd and 3rd digits by PPG waveforms. There was decreased flow to the 4th and 5th digits by PPG wave forms. The great toe pressure was 120 mmHg with a normal TBI of 1.07. Signature - Velocities are m easured in cm/s ; Diameters are measured in cm Interface, External Ris In - 06/27 10:10 PM CDTPV LAB - Lower Extremity Arterial Procedure Demographics Pat ient Name STEVE BENEDICT Date of Study 07/13/2020 Age 74 Visit Number [id number] Gender Male Accession Number [id number] Date of 1945 Referring Jimy Fitzgerald MD Room Number 6213 [facility] Nursing Education Specialist Adam Casas Interpreting Diana Carcamo T Physician ProcedureType of Stud y: Extremities Arteries: Lower Extremity Arterial Procedure, ARTERIAL (PAUL'S W/ DOPPLER) ONLY, PV,ARTERIAL ABIL UNILATERAL. Indications for Study:Ulcer.Patient Status:Routine.Study Location:Portable.Technical Quality:Adequate visualization. Risk FactorsHistory of Disease+---------+----+ +!Diagnosis!Date!Comments !+---------+----+ +!Other ! !COPD, CHF, CAD S/p PCIX4, CKD, Morbid Obesity, Lines Right !! ! !Neck !+---------+----+ -----+ImpressionsRight Impression1. The posterior tibial and dorsalis pedis silvia jason are patent with normaltriphasic Doppler waveforms.2. The PT pressure is 140 mmHg with an PAUL of 1.25 and the DP pressure is 94mmHg with an PAUL of 0.84, wit hin normal range.3. There is adequate flow to the 1st,2nd and 3rd digits by PPG waveforms.4. There is decreased flow to the 4th and 5th digits by PPG waveforms. 5. The great toe pressure is 120 mmHg with a normal TBI of 1.07.Left Impression1 . The posterior tibial and dorsalis pedis arteries are patent withtriphasic/biph asic doppler waveforms Doppler waveforms.2. The PAUL's were not obtained due to p ain and bandages.3. There is adequate flow to the digits by PPG waveforms.4. The great toe pressure is 128 mmHg with a normal TBI of 1.14. Conclusions Summary Arterial pressures and Doppler waveforms were performed on the right lower extr emity. The posterior tibial and dorsalis pedis arteries were patent with normal triphasic Doppler waveforms. The PT pressure was 140 mmHg with an PAUL of 1.25 an d the DP pressure is 94 mmHg with an PAUL of 0.84, within normal range. There was adequate flow to the 1st,2nd and 3rd digits by PPG waveforms. There was decreas ed flow to the 4th and 5th digits by PPG waveforms. The great toe pressure was 1 20 mmHg with a normal TBI of 1.07. Signature Velocities are measured in cm/s ; Diameters are artie sured in [facility] bilateral 2020-07-13 22:09:30Ejection FractionSLEH ECHO HEARTLAB MKCKESSON CPACSRight Impression1. The common femoral, profunda femoral, superficial femoral, popliteal,posterior tibial, peroneal and anterior tibial arteries are patent withcalcified plaque and triphasic doppler waveforms throughout.Left Impression1. The common femoral, profunda femoral, superficial femoral and poplitealarteries are patent with calcified plaque and triphasic doppler waveformsthroughout.2. The proximal posterior tibial artery was patent with a low velocity of12/4 cm/sec and biphasic/monophasic doppler waveforms throughout.3. The mid-distal posterior tibial artery was not visualized.4. The peroneal artery was not visualized.5. The distal anterior tibial artery is patent with triphasic dopplerwaveforms.6. The proximal-mid anterior tibial a rtery was not visualized. Conclusions Summary Arterial Doppler waveforms were performed bilaterally. The arteries were technically difficult to visualize due to a bandage, pain, swelling and body habitus. On the right, the common femoral, profunda femoral, superficial femoral, popliteal, posterior tibial, peroneal and anterior tibial arteries were patent with calcified plaque and triphasic doppler waveforms throughout. On the left, the common femoral, profunda femoral, sup erficial femoral and popliteal arteries were patent with calcified plaque and tr iphasic doppler waveforms throughout. The proximal posterior tibial artery was p atent with a low velocity of 12/4 cm/sec and biphasic/monophasic doppler wavefor ms throughout. The mid-distal posterior tibial artery was not visualized. The pe roneal artery was not visualized. The distal anterior tibial artery was patent w ith triphasic doppler waveforms. The proximal-mid anterior tibial artery was not visualized. Signature --------- Electronically signed by Diana Carcamo MD(Interpreting physician) lorin davidson 07/13/2020 10:09 PM ------ Velocities are measured in cm/s ; Diameters are measured in cm LE Duplex Measurements R ight Left +--------- + + +----- + + + + +- + !Location ! !PSV !EDV !Waveform ! !PSV !EDV !Waveform ! + + + + ---+ + + + + + !Mid Common Femoral ! !73.9 !17.3 !Triphasic ! !136 !16.7 !Triphasic ! + + + + +------ + + + + ---+ !Prox PFA ! !117 ! !Triphasic ! !55.4 ! !Triphasic ! + + + + + --------+ + + + + !Prox SFA ! !81.5 ! 14.7 !Triphasic ! !83.8 !17 !Triphasic ! + + + + + + + + + + !Mid SFA ! !83.5 !11.8 !Triphasic ! !83.3 !13.5 !Tripha sic ! + ---+ + + + + +--------- ---------+ + + !Dist SFA ! !87.4 !14.7 !T riphasic ! !91.9 !13.4 !Triphasic ! + + +---- + + + + + + + !Prox Popliteal ! !53.4 !14.1 !Triphasic ! !58.1 !14.9 !Triphasic ! + + + ----+ + + + + --------+ + !Dist Popliteal ! !53.4 ! !Triphasic ! !50.3 !9.43 !Triphasic ! +--------- + + +----- + + + + +- + !Prox ETCHER APPRENTICE ! !45.7 ! !Triphasic ! !12.8 !4.91 ! ! + + + + ---+ + + + + + !Mid ETCHER APPRENTICE ! !49.9 !9.82 !Triphasic ! ! ! !Biphasic ! + + + + +------ + + + + ---+ !Dist ETCHER APPRENTICE ! !44 ! !Triphasic ! !46.8 ! !Biphasic ! + + + + + --------+ + + + + !Prox SALO ! !51 ! !Triphasic ! + + + + + + !Dist SALO ! !34 ! !Triphasic ! + + + + --------+ + !Dist Peroneal ! !32.8 ! !Triphasic ! + + +--------- ---------+ + + Interface, External Ris I n - 07/13/2020 10:09 PM CDTPV LAB - Lower Extremity Arterial Duplex Demographics Patient Name STEVE BENEDICT Date of Study 07/13/2020 Age 74 Visit Number [id number] Gender Male Accession Number [id number] Date of 1945 Referring Jimy Fitzgerald MD Room Number 3903 Physician Nursing Education Specialist Adam Casas Interpreting Diana Addy jarvis, T Physician ProcedureType of Study: Extremities Arteries: Lower Extremities Arterial Duplex, ARTERIAL DOPPL ER LEGS, BILATERAL. Indications for Study:Ulcer.Patient Status:TODAY.Study Locat ion:Portable.Technical Quality:Adequate visualization.Risk FactorsHistory of Dis ease+---------+----+ + !Diagnosis!Date!Comments !+--- ------+----+ +!Other ! !COPD, CHF, CAD S/p PCIX4, CKD, Morbid Obesity, Lines Right !! ! !Neck !+---------+----+ +ImpressionsRight Imp ression1. The common femoral, profunda femoral, superficial femoral, popliteal,p osterior tibial, peroneal and anterior tibial arteries are patent withcalcified plaque and triphasic doppler waveforms throughout.Left Impression1. The common f emoral, profunda femoral, superficial femoral and poplitealarteries are patent w ith calcified plaque and triphasic doppler waveformsthroughout.2. The proximal p osterior tibial artery was patent with a low velocity of12/4 cm/sec and biphasic /monophasic doppler waveforms throughout.3. The mid-distal posterior tibial silvia ry was not visualized.4. The peroneal artery was not visualized.5. The distal an terior tibial artery is patent with triphasic dopplerwaveforms.6. The proximal-m id anterior tibial artery was not visualized. Conclusions Summary Arterial Dop pler waveforms were performed bilaterally. The arteries were technically difficu lt to visualize due to a bandage, pain, swelling and body habitus. On the right, the common femoral, profunda femoral, superficial femoral, popliteal, posterior tibial, peroneal and anterior tibial arteries were patent with calcified plaque and triphasic doppler waveforms throughout. On the left, the common femoral, pr ofunda femoral, superficial femoral and popliteal arteries were patent with calc ified plaque and triphasic doppler waveforms throughout. The proximal posterior tibial artery was patent with a low velocity of 12/4 cm/sec and biphasic/monopha sic doppler waveforms throughout. The mid-distal posterior tibial artery was not visualized. The peroneal artery was not visualized. The distal anterior tibial artery was patent with triphasic doppler waveforms. The proximal-mid anterior ti bial artery was not visualized. Signature Velocities are measured in cm/s ; Diameters are measur ed in cmLE Duplex Measurements Right Left + + +------- + + + + +--- + + !Location ! !PSV !EDV !Waveform ! !PSV !EDV !Waveform ! +-- + + -+ + + + + -----+ + !Mid Common Femoral ! !73.9 !17.3 !Triphasic ! !136 !16.7 !Triphasic ! + + + +-------- + + + + +---- + !Prox PFA ! !117 ! !Triphasic ! !55.4 ! !Triphasic ! + + + + + + + + + + !Prox SFA ! !81 .5 !14.7 !Triphasic ! !83.8 !17 !Triphasic ! + + + + +--------- + + + + + !Mid SFA ! !83.5 !11.8 !Triphasic ! !83.3 !13.5 !Triphasic ! + + + + + -----+ + + + + !Dist SF A ! !87.4 !14. 7 !Triphasic ! !91.9 !13.4 !Triphasic ! + + + + + + +-- + + + !Prox Popliteal ! !53.4 !14.1 !Triphasic ! !58.1 !14.9 !Triphasic ! + + + + + + + ------+ + + !Dist Popliteal ! !53.4 ! !Trip hasic ! !50.3 !9.43 !Triphasic ! + + +------- + + + + +--- + + !Prox ETCHER APPRENTICE ! !45.7 ! !Triphasic ! !12.8 !4.91 ! ! +-- + + -+ + + + + -----+ + !Mid ETCHER APPRENTICE ! !49.9 !9.82 !Triphasic ! ! ! !Biphasic ! + + + +-------- + + + + +---- + !Dist ETCHER APPRENTICE ! !44 ! !Triphasic ! !46.8 ! !Biphasic ! + + + + + + + + + + !Prox SALO ! !51 ! !Triphasic ! + + + + -----+ + !Dist SALO ! !34 ! !Triphasic ! + + + ------+ + + !Dist Peroneal ! !32.8 ! !Trip hasic ! + -----+ + + + + [facility] Leg[facility] [id number] 22:09:04Ejection Merged with [facility] ECHO HEARTLAB MKCKESSON CPACSRight Impression1. There is no deep venous venous obstruction in the common femoral,profunda femoral, femoral, popliteal, posterior tibial or peroneal veins.2. There is no superficial venous obstruction in the great saphenous vein.Left Impression1. There is no deep sea ous obstruction in the common femoral, profundafemoral, femoral, popliteal or po sterior tibial veins.2. The peroneal veins were not visualized.3. There is no bald[place] perficial venous obstruction in the great saphenous vein. Conclusions Summary Venous duplex imaging and compression of the bilateral lower extremities was pe rformed. The veins were adequately visualized except as stated above. The bilate ral venous systems were patent and compressible with no evidence of thrombus whe re visualized. Superficial venous measurements are documented below. Signature -- Velocities are me asured in cm/s ; Diameters are measured in cm LE Vein Mapping Superficial - Gre at Saphenous Vein Right Left + + + + -------+ + + + !Locat ion ! !Diameter !Depth ! !Diameter !De pth ! + + + + + + + + !GSV High Thigh ! !0.51 ! ! !0.53 ! ! + + + + + + + + !GSV Mid Thigh ! !0.44 ! ! !0.6 ! ! + + +----- + + + + + !GSV Low Thigh ! !0.52 ! ! !0.27 ! ! + + + + + + --+ + !GSV High Calf ! !0.35 ! ! !0.32 ! ! + + + -------+ + + +------- + !GSV Mid Calf ! !0.33 ! ! +----- + + + + !GSV Low Calf ! !0.35 ! ! + + + + + Interface, Exter nal Ris In - 07/13/2020 10:09 PM CDTPV LAB - Lower Extremities Vein Mapping Demo graphics Patient Name STEVE BENEDICT Date of Study 07/13/2020 MR N [id number] Age 74 Visit Number [id number] Gender Male Accession Number [id number] Date of 1945 Referring Jimy Fitzgerald MD Room Number 3375 Physician Nursing Education Specialist Adam Casas Interpreting Torie Carcamo T Physician MD [place] eType of Study: Veins: Lower Extremity Vein Mapping, VEIN MAPPING, LOWER EXTREM ITY, BILATERAL. Indications for Study:Pre-op evaluation.Patient Status:TODAY.Rudi dy Location:Portable.Technical Quality:Adequate visualization.Risk FactorsHistor y of Disease+---------+----+ -------+!Diagnosis!Date!Comments !+---------+----+ + !Other ! !COPD, CHF, CAD S/p PCIX4, CKD, Morbid Obesity, Lines Right !! ! !Neck !+------- --+----+ +ImpressionsR ight Impression1. There is no deep venous venous obstruction in the common femor al,profunda femoral, femoral, popliteal, posterior tibial or peroneal veins.2. T here is no superficial venous obstruction in the great saphenous vein.Left Impre ssion1. There is no deep venous obstruction in the common femoral, profundafemor al, femoral, popliteal or posterior tibial veins.2. The peroneal veins were not visualized.3. There is no superficial venous obstruction in the great saphenous vein. Conclusions Summary Venous duplex imaging and compression of the [facility] lower extremities was performed. The veins were adequately visualized except as stated above. The bilateral venous systems were patent and compressible with no evidence of thrombus where visualized. Superficial venous measurements are do cumented below. Signature --------- Velocities are measured in cm/s ; Diameters are measured in cmLE Vein Mapping Superficial - Great Saphenous Vein Right Left + + + --+ + + + + !Location ! !Diameter !Depth ! !Diameter !Depth ! + + + +------- + + + -------+ !GSV High Thigh ! !0.51 ! ! !0.53 ! ! + + + + + + + + ! GSV Mid Thigh ! !0.44 ! ! !0.6 ! ! + + + + --+ + + + !GSV Low Th igh ! !0.52 ! ! !0.27 ! ! + -------+ + + + +----- + + !GSV High Calf ! !0.35 ! ! !0.32 ! ! + + + + + + + + !GSV Mid Calf ! !0.33 ! ! + --+ + + + !GSV Low Ca lf ! !0.35 ! ! + + + + -------+ [facility] HospitalCarotid doppler [id number] 22:08:47Ejection FractionSLEH ECHO HEARTLAB MKCKESSON CPACSRight ImpressionNot obtained due to linesLeft Impression1. There is <50% diameter reduction (approximately 32% by 2-D measurement)in the internal carotid artery with a peak velocity of 58/15 cm/sec andheterogeneous plaque.2. There is non-occluding plaque in the external carotid artery.3. There is non-occluding plaque in the common carotid artery.4. The vertebral artery flow is antegrade and normal. Conclusions Summary Carotid duplex scanning and color flow imaging was performed on the left side. The arteries were adequately visualized. The left internal carotid artery had <50% hemodynamically insignificant stenosis (approximately 32% by 2-D measurement) with heterogeneous plaque. Signature Velocities are measured in cm/s ; Diameters are measured in cm Carotid Left Measurements+---------+----+----+-----+ +-------- + +!Location !PSV !EDV !Angle!%Stenosis 2D !%Stenosis Do ppler !Tortuosity !+---------+----+----+-----+ + ------+ +!Prox CCA !58 !11.7!60 ! ! ! !+---------+----+----+-----+ + +- +!Dist CCA !45.7!13.5!60 ! ! ! !+---------+----+----+-----+ + +--------- --+!Prox ICA !53.8!15.3!60 !32% !<50% ! !+---------+----+----+-----+ +----- + +!Dist ICA !55 !23.2!60 ! ! ! !+---------+----+----+-----+ + ---------+ +!Prox ECA !127 !23.6!60 ! ! ! !+---------+----+----+-----+ + -+ +!Vertebral!28.7!7.86!60 ! ! ! !+---------+----+----+-----+ + +------ -----+ - Additional Measurements:ICAPSV/CCAPSV 1.2.ICAEDV/CCAEDV 1.98. Interfa ce, External Ris In - 07/13/2020 10:09 PM CDTPV LAB - Carotid Duplex Study [facility] Patient Name STEVE BENEDICT Date of Study 07/13/2020 Age 74 Visit Number [id number] Gender Male Accession Number [id number] Date of 1945 Referring Jimy Fitzgerald MD Room Number 3420 Physician Nursing Education Specialist Adam Casas Interpreting Casi Carcamo [facility] Physician Procedure Type of Study: Cerebral: Carotid, CAROTID DOPPLER, BILATERAL. Indications for S patrick:Pre-op evaluation.Patient Status:TODAY.Study Location:Portable.Technical Qu ality:Adequate visualization.Risk FactorsHistory of Disease+---------+----+----- +!Diagnosis!Date!Comments !+---------+----+ +!Other ! !COPD, CHF, CAD S/ p PCIX4, CKD, Morbid Obesity, Lines Right !! ! !Neck !+---------+----+ +ImpressionsRight ImpressionNot obtained due carrie Jenkins Impression1. There is <50% diameter reduction (approximately 32% by 2-D measurement)in the internal carotid artery with a peak velocity of 58/15 cm/sec andheterogeneous plaque.2. There is non-occluding plaque in the external carotid artery.3. There is non-occluding plaque in the common carotid artery.4. The vertebral artery flow is antegrade and normal. Conclusions Summary Carotid duplex scanning and color flow imaging was performed on the left side. The arteries were adequately visualized. The left internal carotid artery had <50% hemodynamically insignificant stenosis (approximately 32% by 2-D measurement) with heterogeneous plaque. Signature Velocities are measured in cm/s ; Diameters are measured in cmCarotid Left Measurements+---------+----+----+-----+ +--------- + +!Location !PSV !EDV !Angle!%Stenosis 2D !%Stenosis Dop pler !Tortuosity !+---------+----+----+-----+ + -----+ +!Prox CCA !58 !11.7!60 ! ! ! !+---------+----+----+-----+ + +-- ---------+!Dist CCA !45.7!13.5!60 ! ! ! !+---------+----+----+-----+ + + +!Prox ICA !53.8!15.3!60 !32% !<50% ! !+---------+----+----+-----+ +----- + +!Dist ICA !55 !23.2!60 ! ! ! !+---------+----+----+-----+ + ---------+ +!Prox ECA !127 !23.6!60 ! ! ! !+---------+----+----+-----+ + -+ +!Vertebral!28.7!7.86!60 ! ! ! !+---------+----+----+-----+ + +------ -----+ - Additional Measurements:ICAPSV/CCAPSV 1.2.ICAEDV/CCAEDV [facility] [id number] 21:19:00* Test Item Value Reference Range Interpretation Comments POC-GLUCOSE METER (BEAKER) (test code = 1538) 177 mg/dL 70-110 H : Notified RN/MD: TESTED AT [facility] [address] [facility], [address]: Supervisor Pre Wave/Rail Specialist ID = [id number] for AMBER GUTIERREZ BASIC METABOLIC [id number] 17:16:00* Test Item Value Reference Range Interpretation Comments SODIUM (BEAKER) (test code = 381) 135 meq/L 136-145 L POTASSIUM (BEAKER) (test code = 379) 4.2 meq/L 3.5-5.1 Specimen slightly hemolyzed CHLORIDE (BEAKER) (test code = 382) 89 meq/L 98-107 L CO2 (BEAKER) (test code = 355) 42 meq/L 22-29 HH BLOOD UREA NITROGEN (BEAKER) (test code = 354) 53 mg/dL 7-21 H CREATININE (BEAKER) (test code = 358) 1.51 mg/dL 0.57-1.25 H Specimen slightly hemolyzed GLUCOSE RANDOM (BEAKER) (test code = 652) 272 mg/dL 70-105 H CALCIUM (BEAKER) (test code = 697) 8.2 mg/dL 8.4-10.2 L EGFR (BEAKER) (test code = 1092) 45 mL/min/1.73 sq m ESTIMATED GFR IS NOT ACCURATE CREATININE CLEARANCE IN PREDICTING GLOMERULAR FILTRATION RATE. ESTIMATED GFR IS NOT APPLICABLE FOR DIALYSIS PATIENTS. Supervisor Pre Wave ID - [id number] 17:12:00* Test Item Value Reference Range Interpretation Comments MAGNESIUM (BEAKER) (test code = 627) 2.2 mg/dL 1.6-2.6 Specimen slightly hemolyzed Supervisor Pre Wave ID - BSPOCT-GLUCOSE [id number] 16:38:00* Test Item Value Reference Range Interpretation Comments POC-GLUCOSE METER (BEAKER) (test code = 1538) 246 mg/dL 70-110 H : TESTED AT [place] [id number] [facility], [address]: Supervisor Pre Wave/Rail Specialist ID = [id number] for KARLOS CASTELLONA POCT-GLUCOSE [id number] 11:13:00* Test Item Value Reference Range Interpretation Comments POC-GLUCOSE METER (BEAKER) (test code = 1538) 234 mg/dL 70-110 H : TESTED AT [address], [address]: Supervisor Pre Wave/Rail Specialist ID = [id number] for KARLOS CASTELLONA POCT-GLUCOSE [id number] 07:21:00* Test Item Value Reference Range Interpretation Comments POC-GLUCOSE METER (BEAKER) (test code = 1538) 120 mg/dL 70-110 H : TESTED AT [place] [id number] [facility], [address]: Supervisor Pre Wave/Rail Specialist ID = [id number] for KARLOS CASTELLONA [id number] 05:24:00* Test Item Value Reference Range Interpretation Comments PHOSPHORUS (BEAKER) (test code = 604) 2.8 mg/dL 2.3-4.7 Supervisor Pre Wave ID - HENRIETTA [id number] 05:24:00* Test Item Value Reference Range Interpretation Comments MAGNESIUM (BEAKER) (test code = 627) 2.1 mg/dL 1.6-2.6 Supervisor Pre Wave ID - HENRIETTA LCOMPREHENSIVE METABOLIC [id number] 05:24:00* Test Item Value Reference Range Interpretation Comments TOTAL PROTEIN (BEAKER) (test code = 770) 5.8 gm/dL 6.0-8.3 L ALBUMIN (BEAKER) (test code = 1145) 3.6 g/dL 3.5-5.0 ALKALINE PHOSPHATASE (BEAKER) (test code = 346) 87 U/L 40-150 BILIRUBIN TOTAL (BEAKER) (test code = 377) 0.6 mg/dL 0.2-1.2 SODIUM (BEAKER) (test code = 381) 139 meq/L 136-145 POTASSIUM (BEAKER) (test code = 379) 3.9 meq/L 3.5-5.1 CHLORIDE (BEAKER) (test code = 382) 93 meq/L 98-107 L CO2 (BEAKER) (test code = 355) 37 meq/L 22-29 H BLOOD UREA NITROGEN (BEAKER) (test code = 354) 54 mg/dL 7-21 H CREATININE (BEAKER) (test code = 358) 1.47 mg/dL 0.57-1.25 H GLUCOSE RANDOM (BEAKER) (test code = 652) 177 mg/dL 70-105 H CALCIUM (BEAKER) (test code = 697) 8.0 mg/dL 8.4-10.2 L AST (SGOT) (BEAKER) (test code = 353) 13 U/L 5-34 ALT (SGPT) (BEAKER) (test code = 347) 20 U/L 6-55 EGFR (BEAKER) (test code = 1092) 47 mL/min/1.73 sq m ESTIMATED GFR IS NOT ACCURATE CREATININE CLEARANCE IN PREDICTING GLOMERULAR FILTRATION RATE. ESTIMATED GFR IS NOT APPLICABLE FOR DIALYSIS PATIENTS. Supervisor Pre Wave ID - PIAYA LCBC W/PLT COUNT & AUTO [id number] 04:23:00* Test Item Value Reference Range Interpretation Comments WHITE BLOOD CELL COUNT (BEAKER) (test code = 775) 8.8 K/ L 3.5- 10.5 RED BLOOD CELL COUNT (BEAKER) (test code = 761) 3.89 M/ L 4.63-6 .08 L HEMOGLOBIN (BEAKER) (test code = 410) 11.7 GM/DL 13.7-17.5 L HEMATOCRIT (BEAKER) (test code = 411) 39.4 % 40.1-51.0 L MEAN CORPUSCULAR VOLUME (BEAKER) (test code = 753) 101.3 fL 79. 0-92.2 H MEAN CORPUSCULAR HEMOGLOBIN (BEAKER) (test code = 751) 30.1 pg 25.7-32.2 MEAN CORPUSCULAR HEMOGLOBIN CONC (BEAKER) (test code = 752) 29.7 GM/DL 32.3-36.5 L RED CELL DISTRIBUTION WIDTH (BEAKER) (test code = 412) 17.2 % 11.6-14.4 H PLATELET COUNT (BEAKER) (test code = 756) 153 K/CU MM 150-450 MEAN PLATELET VOLUME (BEAKER) (test code = 754) 11.4 fL 9.4-12 .4 NUCLEATED RED BLOOD CELLS (BEAKER) (test code = 413) 1 /100 WBC 0 -0 H NEUTROPHILS RELATIVE PERCENT (BEAKER) (test code = 429) 80 % LYMPHOCYTES RELATIVE PERCENT (BEAKER) (test code = 430) 11 % MONOCYTES RELATIVE PERCENT (BEAKER) (test code = 431) 7 % EOSINOPHILS RELATIVE PERCENT (BEAKER) (test code = 432) 0 % BASOPHILS RELATIVE PERCENT (BEAKER) (test code = 437) 0 % NEUTROPHILS ABSOLUTE COUNT (BEAKER) (test code = 670) 7.00 K/ L 1.78-5.38 H LYMPHOCYTES ABSOLUTE COUNT (BEAKER) (test code = 414) 0.93 K/ L 1.32-3.57 L MONOCYTES ABSOLUTE COUNT (BEAKER) (test code = 415) 0.57 K/ L 0. 30-0.82 EOSINOPHILS ABSOLUTE COUNT (BEAKER) (test code = 416) 0.02 K/ L 0.04-0.54 L BASOPHILS ABSOLUTE COUNT (BEAKER) (test code = 417) 0.03 K/ L 0. 01-0.08 IMMATURE GRANULOCYTES-RELATIVE PERCENT (BEAKER) (test code = 2801) 3 % 0-1 H OXYGEN SATURATION, [id number] 04:06:00* Test Item Value Reference Range Interpretation Comments O2 SATURATION (MEASURED) (BEAKER) (test code = 1455) 71.6 % CALCIUM, [id number] 04:06:00* Test Item Value Reference Range Interpretation Comments CALCIUM IONIZED (BEAKER) (test code = 698) 1.07 mmol/L 1.12-1.27 L PH, BLOOD (BEAKER) (test code = 1810) 7.35 POCT-GLUCOSE [id number] 22:49:00* Test Item Value Reference Range Interpretation Comments POC-GLUCOSE METER (BEAKER) (test code = 1538) 228 mg/dL 70-110 H : TESTED AT [facility] [address] [facility], [address]: Supervisor Pre Wave/Rail Specialist ID = [id number] for ASTER BLUM BASIC METABOLIC [id number] 16:48:00* Test Item Value Reference Range Interpretation Comments SODIUM (BEAKER) (test code = 381) 139 meq/L 136-145 POTASSIUM (BEAKER) (test code = 379) 4.2 meq/L 3.5-5.1 CHLORIDE (BEAKER) (test code = 382) 91 meq/L 98-107 L CO2 (BEAKER) (test code = 355) 40 meq/L 22-29 HH BLOOD UREA NITROGEN (BEAKER) (test code = 354) 56 mg/dL 7-21 H CREATININE (BEAKER) (test code = 358) 1.59 mg/dL 0.57-1.25 H GLUCOSE RANDOM (BEAKER) (test code = 652) 192 mg/dL 70-105 H CALCIUM (BEAKER) (test code = 697) 8.1 mg/dL 8.4-10.2 L EGFR (BEAKER) (test code = 1092) 43 mL/min/1.73 sq m ESTIMATED GFR IS NOT ACCURATE CREATININE CLEARANCE IN PREDICTING GLOMERULAR FILTRATION RATE. ESTIMATED GFR IS NOT APPLICABLE FOR DIALYSIS PATIENTS. Supervisor Pre Wave ID - [id number] 16:46:00* Test Item Value Reference Range Interpretation Comments PHOSPHORUS (BEAKER) (test code = 604) 3.1 mg/dL 2.3-4.7 Supervisor Pre Wave ID - [id number] 16:46:00* Test Item Value Reference Range Interpretation Comments MAGNESIUM (BEAKER) (test code = 627) 2.3 mg/dL 1.6-2.6 Supervisor Pre Wave ID - BSPOCT-GLUCOSE [id number] 16:33:00* Test Item Value Reference Range Interpretation Comments POC-GLUCOSE METER (BEAKER) (test code = 1538) 183 mg/dL 70-110 H : TESTED AT [facility] [address] [facility], [address]: Supervisor Pre Wave/Rail Specialist ID = [id number] for MAYRA ELLIOTT OXYGEN SATURATION, [id number] 15:42:00* Test Item Value Reference Range Interpretation Comments O2 SATURATION (MEASURED) (BEAKER) (test code = 1455) 74.0 % [id number] 13:05:00* Test Item Value Reference Range Interpretation Comments MAGNESIUM (BEAKER) (test code = 627) 2.2 mg/dL 1.6-2.6 Specimen slightly hemolyzed Supervisor Pre Wave ID - SEDA [id number] 13:05:00* Test Item Value Reference Range Interpretation Comments PHOSPHORUS (BEAKER) (test code = 604) 2.8 mg/dL 2.3-4.7 Specimen slightly hemolyzed Supervisor Pre Wave ID - SEDA MBASIC METABOLIC [id number] 13:05:00* Test Item Value Reference Range Interpretation Comments SODIUM (BEAKER) (test code = 381) 136 meq/L 136-145 POTASSIUM (BEAKER) (test code = 379) 4.1 meq/L 3.5-5.1 Specimen slightly hemolyzed CHLORIDE (BEAKER) (test code = 382) 91 meq/L 98-107 L CO2 (BEAKER) (test code = 355) 36 meq/L 22-29 H BLOOD UREA NITROGEN (BEAKER) (test code = 354) 55 mg/dL 7-21 H CREATININE (BEAKER) (test code = 358) 1.75 mg/dL 0.57-1.25 H Specimen slightly hemolyzed GLUCOSE RANDOM (BEAKER) (test code = 652) 287 mg/dL 70-105 H CALCIUM (BEAKER) (test code = 697) 8.0 mg/dL 8.4-10.2 L EGFR (BEAKER) (test code = 1092) 38 mL/min/1.73 sq m ESTIMATED GFR IS NOT ACCURATE CREATININE CLEARANCE IN PREDICTING GLOMERULAR FILTRATION RATE. ESTIMATED GFR IS NOT APPLICABLE FOR DIALYSIS PATIENTS. Supervisor Pre Wave ID - SEDA MPOCT-GLUCOSE [id number] 11:14:00* Test Item Value Reference Range Interpretation Comments POC-GLUCOSE METER (BEAKER) (test code = 1538) 275 mg/dL 70-110 H : TESTED AT [address], [address]: Supervisor Pre Wave/Rail Specialist ID = [id number] for RHEA ROBERTS [id number] 04:32:00* Test Item Value Reference Range Interpretation Comments PHOSPHORUS (BEAKER) (test code = 604) 3.4 mg/dL 2.3-4.7 Supervisor Pre Wave ID - SEDA MCOMPREHENSIVE METABOLIC [id number] 04:32:00* Test Item Value Reference Range Interpretation Comments TOTAL PROTEIN (BEAKER) (test code = 770) 6.2 gm/dL 6.0-8.3 ALBUMIN (BEAKER) (test code = 1145) 3.8 g/dL 3.5-5.0 ALKALINE PHOSPHATASE (BEAKER) (test code = 346) 92 U/L 40-150 BILIRUBIN TOTAL (BEAKER) (test code = 377) 0.6 mg/dL 0.2-1.2 SODIUM (BEAKER) (test code = 381) 136 meq/L 136-145 POTASSIUM (BEAKER) (test code = 379) 3.9 meq/L 3.5-5.1 CHLORIDE (BEAKER) (test code = 382) 91 meq/L 98-107 L CO2 (BEAKER) (test code = 355) 37 meq/L 22-29 H BLOOD UREA NITROGEN (BEAKER) (test code = 354) 58 mg/dL 7-21 H CREATININE (BEAKER) (test code = 358) 1.81 mg/dL 0.57-1.25 H GLUCOSE RANDOM (BEAKER) (test code = 652) 181 mg/dL 70-105 H CALCIUM (BEAKER) (test code = 697) 8.4 mg/dL 8.4-10.2 AST (SGOT) (BEAKER) (test code = 353) 15 U/L 5-34 ALT (SGPT) (BEAKER) (test code = 347) 20 U/L 6-55 EGFR (BEAKER) (test code = 1092) 37 mL/min/1.73 sq m ESTIMATED GFR IS NOT ACCURATE CREATININE CLEARANCE IN PREDICTING GLOMERULAR FILTRATION RATE. ESTIMATED GFR IS NOT APPLICABLE FOR DIALYSIS PATIENTS. Supervisor Pre Wave ID - SEDA MCALCIUM, [id number] 04:23:00* Test Item Value Reference Range Interpretation Comments CALCIUM IONIZED (BEAKER) (test code = 698) 1.12 mmol/L 1.12-1.27 PH, BLOOD (BEAKER) (test code = 1810) 7.31 CBC W/PLT COUNT & AUTO [id number] 03:52:00* Test Item Value Reference Range Interpretation Comments WHITE BLOOD CELL COUNT (BEAKER) (test code = 775) 8.8 K/ L 3.5- 10.5 RED BLOOD CELL COUNT (BEAKER) (test code = 761) 3.83 M/ L 4.63-6 .08 L HEMOGLOBIN (BEAKER) (test code = 410) 11.9 GM/DL 13.7-17.5 L HEMATOCRIT (BEAKER) (test code = 411) 39.0 % 40.1-51.0 L MEAN CORPUSCULAR VOLUME (BEAKER) (test code = 753) 101.8 fL 79. 0-92.2 H MEAN CORPUSCULAR HEMOGLOBIN (BEAKER) (test code = 751) 31.1 pg 25.7-32.2 MEAN CORPUSCULAR HEMOGLOBIN CONC (BEAKER) (test code = 752) 30.5 GM/DL 32.3-36.5 L RED CELL DISTRIBUTION WIDTH (BEAKER) (test code = 412) 17.2 % 11.6-14.4 H PLATELET COUNT (BEAKER) (test code = 756) 143 K/CU MM 150-450 L MEAN PLATELET VOLUME (BEAKER) (test code = 754) 11.3 fL 9.4-12 .4 NUCLEATED RED BLOOD CELLS (BEAKER) (test code = 413) 0 /100 WBC 0 -0 NEUTROPHILS RELATIVE PERCENT (BEAKER) (test code = 429) 81 % LYMPHOCYTES RELATIVE PERCENT (BEAKER) (test code = 430) 9 % MONOCYTES RELATIVE PERCENT (BEAKER) (test code = 431) 7 % EOSINOPHILS RELATIVE PERCENT (BEAKER) (test code = 432) 0 % BASOPHILS RELATIVE PERCENT (BEAKER) (test code = 437) 0 % NEUTROPHILS ABSOLUTE COUNT (BEAKER) (test code = 670) 7.14 K/ L 1.78-5.38 H LYMPHOCYTES ABSOLUTE COUNT (BEAKER) (test code = 414) 0.80 K/ L 1.32-3.57 L MONOCYTES ABSOLUTE COUNT (BEAKER) (test code = 415) 0.64 K/ L 0. 30-0.82 EOSINOPHILS ABSOLUTE COUNT (BEAKER) (test code = 416) 0.01 K/ L 0.04-0.54 L BASOPHILS ABSOLUTE COUNT (BEAKER) (test code = 417) 0.02 K/ L 0. 01-0.08 IMMATURE GRANULOCYTES-RELATIVE PERCENT (BEAKER) (test code = 2801) 2 % 0-1 H [id number] 01:56:00* Test Item Value Reference Range Interpretation Comments PHOSPHORUS (BEAKER) (test code = 604) 3.7 mg/dL 2.3-4.7 Supervisor Pre Wave ID Dawson STACK [id number] 01:56:00* Test Item Value Reference Range Interpretation Comments MAGNESIUM (BEAKER) (test code = 627) 2.3 mg/dL 1.6-2.6 Supervisor Pre Wave ID Dawson STACK MBASIC METABOLIC [id number] 01:56:00* Test Item Value Reference Range Interpretation Comments SODIUM (BEAKER) (test code = 381) 138 meq/L 136-145 POTASSIUM (BEAKER) (test code = 379) 3.9 meq/L 3.5-5.1 CHLORIDE (BEAKER) (test code = 382) 91 meq/L 98-107 L CO2 (BEAKER) (test code = 355) 39 meq/L 22-29 H BLOOD UREA NITROGEN (BEAKER) (test code = 354) 59 mg/dL 7-21 H CREATININE (BEAKER) (test code = 358) 1.87 mg/dL 0.57-1.25 H GLUCOSE RANDOM (BEAKER) (test code = 652) 181 mg/dL 70-105 H CALCIUM (BEAKER) (test code = 697) 8.4 mg/dL 8.4-10.2 EGFR (BEAKER) (test code = 1092) 35 mL/min/1.73 sq m ESTIMATED GFR IS NOT ACCURATE CREATININE CLEARANCE IN PREDICTING GLOMERULAR FILTRATION RATE. ESTIMATED GFR IS NOT APPLICABLE FOR DIALYSIS PATIENTS. Supervisor Pre Wave ID Dawson STACK MPOCT-GLUCOSE [id number] 22:57:00* Test Item Value Reference Range Interpretation Comments POC-GLUCOSE METER (BEAKER) (test code = 1538) 132 mg/dL 70-110 H : TESTED AT [facility] [address] [place] [address], [address]: Supervisor Pre Wave/Rail Specialist ID = [id number] for JUAN MANUEL HERNANDEZ BASIC METABOLIC [id number] 18:31:00* Test Item Value Reference Range Interpretation Comments SODIUM (BEAKER) (test code = 381) 137 meq/L 136-145 POTASSIUM (BEAKER) (test code = 379) 3.8 meq/L 3.5-5.1 CHLORIDE (BEAKER) (test code = 382) 90 meq/L 98-107 L CO2 (BEAKER) (test code = 355) 40 meq/L 22-29 HH BLOOD UREA NITROGEN (BEAKER) (test code = 354) 57 mg/dL 7-21 H CREATININE (BEAKER) (test code = 358) 1.77 mg/dL 0.57-1.25 H GLUCOSE RANDOM (BEAKER) (test code = 652) 161 mg/dL 70-105 H CALCIUM (BEAKER) (test code = 697) 8.5 mg/dL 8.4-10.2 EGFR (BEAKER) (test code = 1092) 38 mL/min/1.73 sq m ESTIMATED GFR IS NOT ACCURATE CREATININE CLEARANCE IN PREDICTING GLOMERULAR FILTRATION RATE. ESTIMATED GFR IS NOT APPLICABLE FOR DIALYSIS PATIENTS. Supervisor Pre Wave ID - [id number] 18:28:00* Test Item Value Reference Range Interpretation Comments PHOSPHORUS (BEAKER) (test code = 604) 3.6 mg/dL 2.3-4.7 Supervisor Pre Wave ID - [id number] 18:28:00* Test Item Value Reference Range Interpretation Comments MAGNESIUM (BEAKER) (test code = 627) 2.4 mg/dL 1.6-2.6 Supervisor Pre Wave ID - BSPOCT-GLUCOSE [id number] 17:03:00* Test Item Value Reference Range Interpretation Comments POC-GLUCOSE METER (BEAKER) (test code = 1538) 182 mg/dL 70-110 H : TESTED AT [facility] [address] [facility], [address]: Supervisor Pre Wave/Rail Specialist ID = [id number] for RHEA ROBERTS POCT-GLUCOSE [id number] 16:28:00* Test Item Value Reference Range Interpretation Comments POC-GLUCOSE METER (BEAKER) (test code = 1538) 156 mg/dL 70-110 H : TESTED AT [facility] [address] [facility], [address]: Supervisor Pre Wave/Rail Specialist ID = [id number] for WEST [employer] BASIC METABOLIC [id number] 13:43:00* Test Item Value Reference Range Interpretation Comments SODIUM (BEAKER) (test code = 381) 136 meq/L 136-145 POTASSIUM (BEAKER) (test code = 379) 4.0 meq/L 3.5-5.1 CHLORIDE (BEAKER) (test code = 382) 90 meq/L 98-107 L CO2 (BEAKER) (test code = 355) 42 meq/L 22-29 HH BLOOD UREA NITROGEN (BEAKER) (test code = 354) 54 mg/dL 7-21 H CREATININE (BEAKER) (test code = 358) 1.79 mg/dL 0.57-1.25 H GLUCOSE RANDOM (BEAKER) (test code = 652) 209 mg/dL 70-105 H CALCIUM (BEAKER) (test code = 697) 8.5 mg/dL 8.4-10.2 EGFR (BEAKER) (test code = 1092) 37 mL/min/1.73 sq m ESTIMATED GFR IS NOT ACCURATE CREATININE CLEARANCE IN PREDICTING GLOMERULAR FILTRATION RATE. ESTIMATED GFR IS NOT APPLICABLE FOR DIALYSIS PATIENTS. Supervisor Pre Wave ID - [id number] 13:42:00* Test Item Value Reference Range Interpretation Comments PHOSPHORUS (BEAKER) (test code = 604) 3.3 mg/dL 2.3-4.7 Supervisor Pre Wave ID - [id number] 13:42:00* Test Item Value Reference Range Interpretation Comments MAGNESIUM (BEAKER) (test code = 627) 2.3 mg/dL 1.6-2.6 Supervisor Pre Wave ID - DEVYNGPOCT-GLUCOSE [id number] 11:00:00* Test Item Value Reference Range Interpretation Comments POC-GLUCOSE METER (BEAKER) (test code = 1538) 183 mg/dL 70-110 H : TESTED AT [facility] [address] [facility], [address]: Supervisor Pre Wave/Rail Specialist ID = [id number] for RHEA ROBERTS POCT-GLUCOSE [id number] 07:19:00* Test Item Value Reference Range Interpretation Comments POC-GLUCOSE METER (BEAKER) (test code = 1538) 211 mg/dL 70-110 H : TESTED AT [facility] [address] [facility], [address]: Supervisor Pre Wave/Rail Specialist ID = [id number] for WE[employer] COMPREHENSIVE METABOLIC [id number] 04:44:00* Test Item Value Reference Range Interpretation Comments TOTAL PROTEIN (BEAKER) (test code = 770) 5.9 gm/dL 6.0-8.3 L ALBUMIN (BEAKER) (test code = 1145) 3.6 g/dL 3.5-5.0 ALKALINE PHOSPHATASE (BEAKER) (test code = 346) 91 U/L 40-150 BILIRUBIN TOTAL (BEAKER) (test code = 377) 0.5 mg/dL 0.2-1.2 SODIUM (BEAKER) (test code = 381) 139 meq/L 136-145 POTASSIUM (BEAKER) (test code = 379) 3.7 meq/L 3.5-5.1 CHLORIDE (BEAKER) (test code = 382) 90 meq/L 98-107 L CO2 (BEAKER) (test code = 355) 41 meq/L 22-29 HH BLOOD UREA NITROGEN (BEAKER) (test code = 354) 54 mg/dL 7-21 H CREATININE (BEAKER) (test code = 358) 1.84 mg/dL 0.57-1.25 H GLUCOSE RANDOM (BEAKER) (test code = 652) 173 mg/dL 70-105 H CALCIUM (BEAKER) (test code = 697) 8.6 mg/dL 8.4-10.2 AST (SGOT) (BEAKER) (test code = 353) 11 U/L 5-34 ALT (SGPT) (BEAKER) (test code = 347) 20 U/L 6-55 EGFR (BEAKER) (test code = 1092) 36 mL/min/1.73 sq m ESTIMATED GFR IS NOT ACCURATE CREATININE CLEARANCE IN PREDICTING GLOMERULAR FILTRATION RATE. ESTIMATED GFR IS NOT APPLICABLE FOR DIALYSIS PATIENTS. Supervisor Pre Wave ID - PIAYA [facility] METABOLIC [id number] 04:44:00* Test Item Value Reference Range Interpretation Comments SODIUM (BEAKER) (test code = 381) 139 meq/L 136-145 POTASSIUM (BEAKER) (test code = 379) 3.7 meq/L 3.5-5.1 CHLORIDE (BEAKER) (test code = 382) 90 meq/L 98-107 L CO2 (BEAKER) (test code = 355) 41 meq/L 22-29 HH BLOOD UREA NITROGEN (BEAKER) (test code = 354) 54 mg/dL 7-21 H CREATININE (BEAKER) (test code = 358) 1.84 mg/dL 0.57-1.25 H GLUCOSE RANDOM (BEAKER) (test code = 652) 173 mg/dL 70-105 H CALCIUM (BEAKER) (test code = 697) 8.6 mg/dL 8.4-10.2 EGFR (BEAKER) (test code = 1092) 36 mL/min/1.73 sq m ESTIMATED GFR IS NOT ACCURATE CREATININE CLEARANCE IN PREDICTING GLOMERULAR FILTRATION RATE. ESTIMATED GFR IS NOT APPLICABLE FOR DIALYSIS PATIENTS. [id number] 04:40:00* Test Item Value Reference Range Interpretation Comments PHOSPHORUS (BEAKER) (test code = 604) 4.1 mg/dL 2.3-4.7 Supervisor Pre Wave ID - HENRIETTA [id number] 04:40:00* Test Item Value Reference Range Interpretation Comments MAGNESIUM (BEAKER) (test code = 627) 2.4 mg/dL 1.6-2.6 Supervisor Pre Wave ID - HENRIETTA LCBC W/PLT COUNT & AUTO [id number] 04:28:00* Test Item Value Reference Range Interpretation Comments WHITE BLOOD CELL COUNT (BEAKER) (test code = 775) 8.8 K/ L 3.5- 10.5 RED BLOOD CELL COUNT (BEAKER) (test code = 761) 3.75 M/ L 4.63-6 .08 L HEMOGLOBIN (BEAKER) (test code = 410) 11.5 GM/DL 13.7-17.5 L HEMATOCRIT (BEAKER) (test code = 411) 38.4 % 40.1-51.0 L MEAN CORPUSCULAR VOLUME (BEAKER) (test code = 753) 102.4 fL 79. 0-92.2 H MEAN CORPUSCULAR HEMOGLOBIN (BEAKER) (test code = 751) 30.7 pg 25.7-32.2 MEAN CORPUSCULAR HEMOGLOBIN CONC (BEAKER) (test code = 752) 29.9 GM/DL 32.3-36.5 L RED CELL DISTRIBUTION WIDTH (BEAKER) (test code = 412) 17.2 % 11.6-14.4 H PLATELET COUNT (BEAKER) (test code = 756) 154 K/CU MM 150-450 MEAN PLATELET VOLUME (BEAKER) (test code = 754) 11.0 fL 9.4-12 .4 NUCLEATED RED BLOOD CELLS (BEAKER) (test code = 413) 1 /100 WBC 0 -0 H NEUTROPHILS RELATIVE PERCENT (BEAKER) (test code = 429) 82 % LYMPHOCYTES RELATIVE PERCENT (BEAKER) (test code = 430) 9 % MONOCYTES RELATIVE PERCENT (BEAKER) (test code = 431) 7 % EOSINOPHILS RELATIVE PERCENT (BEAKER) (test code = 432) 0 % BASOPHILS RELATIVE PERCENT (BEAKER) (test code = 437) 0 % NEUTROPHILS ABSOLUTE COUNT (BEAKER) (test code = 670) 7.22 K/ L 1.78-5.38 H LYMPHOCYTES ABSOLUTE COUNT (BEAKER) (test code = 414) 0.76 K/ L 1.32-3.57 L MONOCYTES ABSOLUTE COUNT (BEAKER) (test code = 415) 0.63 K/ L 0. 30-0.82 EOSINOPHILS ABSOLUTE COUNT (BEAKER) (test code = 416) 0.02 K/ L 0.04-0.54 L BASOPHILS ABSOLUTE COUNT (BEAKER) (test code = 417) 0.01 K/ L 0. 01-0.08 IMMATURE GRANULOCYTES-RELATIVE PERCENT (BEAKER) (test code = 2801) 2 % 0-1 H CALCIUM, [id number] 04:13:00* Test Item Value Reference Range Interpretation Comments CALCIUM IONIZED (BEAKER) (test code = 698) 1.09 mmol/L 1.12-1.27 L PH, BLOOD (BEAKER) (test code = 1810) 7.32 [id number] 20:09:00* Test Item Value Reference Range Interpretation Comments PHOSPHORUS (BEAKER) (test code = 604) 3.9 mg/dL 2.3-4.7 Supervisor Pre Wave ID - [id number] 20:09:00* Test Item Value Reference Range Interpretation Comments MAGNESIUM (BEAKER) (test code = 627) 2.5 mg/dL 1.6-2.6 Supervisor Pre Wave ID - FSEBASIC METABOLIC [id number] 20:09:00* Test Item Value Reference Range Interpretation Comments SODIUM (BEAKER) (test code = 381) 136 meq/L 136-145 POTASSIUM (BEAKER) (test code = 379) 4.5 meq/L 3.5-5.1 CHLORIDE (BEAKER) (test code = 382) 90 meq/L 98-107 L CO2 (BEAKER) (test code = 355) 36 meq/L 22-29 H BLOOD UREA NITROGEN (BEAKER) (test code = 354) 53 mg/dL 7-21 H CREATININE (BEAKER) (test code = 358) 1.69 mg/dL 0.57-1.25 H GLUCOSE RANDOM (BEAKER) (test code = 652) 247 mg/dL 70-105 H CALCIUM (BEAKER) (test code = 697) 8.6 mg/dL 8.4-10.2 EGFR (BEAKER) (test code = 1092) 40 mL/min/1.73 sq m ESTIMATED GFR IS NOT ACCURATE CREATININE CLEARANCE IN PREDICTING GLOMERULAR FILTRATION RATE. ESTIMATED GFR IS NOT APPLICABLE FOR DIALYSIS PATIENTS. Supervisor Pre Wave ID - FSEBlood gas, [id number] 17:26:00* Test Item Value Reference Range Interpretation Comments pH, Sea (test code = 2746-6) 7.29 7.32-7.42 L pCO2, Sea (test code = 755) 87 41- 51 mmHg HH pO2, Sea (test code = 2705-2) 43 25- 40 mmHg H O2 Sat, Sea (test code = 2711-0) 69.8 % 40-70 HCO3, Sea (test code = 30667-0) 41 mmol/L 21-29 HH Base Excess, Sea (test code = 1927-3) 11.0 mmol/L -2-3 H Patient Temperature (test code = 8310-5) 37.0 C FIO2 (test code = 1819) 32 % MARCO (test code = MARCO) Call results [id number], catherine y to check during next lab draw Lab Interpretation (test code = 84561-4) [facility] [id number] 17:26:00* Test Item Value Reference Range Interpretation Comments PH VENOUS (BEAKER) (test code = 701) 7.29 7.32-7.42 L PCO2 VENOUS (BEAKER) (test code = 755) 87 mmHg 41-51 HH PO2 VENOUS (BEAKER) (test code = 702) 43 mmHg 25-40 H O2 SATURATION VENOUS (BEAKER) (test code = 703) 69.8 % 40.0-7 0.0 HCO3 VENOUS (BEAKER) (test code = 705) 41 mmol/L 21-29 HH BASE EXCESS VENOUS (BEAKER) (test code = 704) 11.0 mmol/L -2.0-3.0 H PATIENT TEMPERATURE (BEAKER) (test code = 1818) 37.0 C FIO2 (BEAKER) (test code = 1819) 32.0 % Call results [id number], okay to check during next lab drawPOCT-GLUCOSE METER 2020-07-10 16:48:00* Test Item Value Reference Range Interpretation Comments POC-GLUCOSE METER (BEAKER) (test code = 1538) 217 mg/dL 70-110 H : TESTED AT [address], [address]: Supervisor Pre Wave/Rail Specialist ID = [id number] for RICHARD KAY ECG 12 [id number] 14:13:26Interface, External Ris In - 07/10/2020 2:13 PM CDTVentricular Rate 93 BPMAtrial Rate 94 BPMQRS Duration 98 msQ-T Interval 336 msQTC Calculation(Bazett) 417 msR [place] -9 degreesT [place] 70 degreesAtrial fibrillation with premature ventricular or aberrantly conducted complexesPulmonary disease pattern Abnormal ECGWhen compared with ECG of 22-JUN-2020 00:03,Artifacts no longer seenConfirmed by MD CORETTA, ALEJANDRA ([id number]) on 07/10/2020 2:13:23 [facility] 2020[facility] 11:19:00* Test Item Value Reference Range Interpretation Comments POC-GLUCOSE METER (BEAKER) (test code = 1538) 191 mg/dL 70-110 H : TESTED AT [address], [address]: Supervisor Pre Wave/Rail Specialist ID = [id number] for WEST PRO [id number] 10:51:00* Test Item Value Reference Range Interpretation Comments PHOSPHORUS (BEAKER) (test code = 604) 3.2 mg/dL 2.3-4.7 Supervisor Pre Wave ID - [id number] 10:51:00* Test Item Value Reference Range Interpretation Comments MAGNESIUM (BEAKER) (test code = 627) 2.4 mg/dL 1.6-2.6 Supervisor Pre Wave ID - AAHAMIDBASIC METABOLIC [id number] 10:51:00* Test Item Value Reference Range Interpretation Comments SODIUM (BEAKER) (test code = 381) 136 meq/L 136-145 POTASSIUM (BEAKER) (test code = 379) 4.9 meq/L 3.5-5.1 CHLORIDE (BEAKER) (test code = 382) 91 meq/L 98-107 L CO2 (BEAKER) (test code = 355) 38 meq/L 22-29 H BLOOD UREA NITROGEN (BEAKER) (test code = 354) 47 mg/dL 7-21 H CREATININE (BEAKER) (test code = 358) 1.55 mg/dL 0.57-1.25 H GLUCOSE RANDOM (BEAKER) (test code = 652) 270 mg/dL 70-105 H CALCIUM (BEAKER) (test code = 697) 8.3 mg/dL 8.4-10.2 L EGFR (BEAKER) (test code = 1092) 44 mL/min/1.73 sq m ESTIMATED GFR IS NOT ACCURATE CREATININE CLEARANCE IN PREDICTING GLOMERULAR FILTRATION RATE. ESTIMATED GFR IS NOT APPLICABLE FOR DIALYSIS PATIENTS. Supervisor Pre Wave ID - AAHAMIDPOCT-GLUCOSE [id number] 07:43:00* Test Item Value Reference Range Interpretation Comments POC-GLUCOSE METER (BEAKER) (test code = 1538) 130 mg/dL 70-110 H : TESTED AT [facility] [address] [facility], [address]: Supervisor Pre Wave/Rail Specialist ID = [id number] for WEST PRO BASIC METABOLIC [id number] 04:53:00* Test Item Value Reference Range Interpretation Comments SODIUM (BEAKER) (test code = 381) 139 meq/L 136-145 POTASSIUM (BEAKER) (test code = 379) 3.4 meq/L 3.5-5.1 L CHLORIDE (BEAKER) (test code = 382) 88 meq/L 98-107 L CO2 (BEAKER) (test code = 355) 42 meq/L 22-29 HH BLOOD UREA NITROGEN (BEAKER) (test code = 354) 49 mg/dL 7-21 H CREATININE (BEAKER) (test code = 358) 1.44 mg/dL 0.57-1.25 H GLUCOSE RANDOM (BEAKER) (test code = 652) 172 mg/dL 70-105 H CALCIUM (BEAKER) (test code = 697) 8.6 mg/dL 8.4-10.2 EGFR (BEAKER) (test code = 1092) 48 mL/min/1.73 sq m ESTIMATED GFR IS NOT ACCURATE CREATININE CLEARANCE IN PREDICTING GLOMERULAR FILTRATION RATE. ESTIMATED GFR IS NOT APPLICABLE FOR DIALYSIS PATIENTS. Supervisor Pre Wave ID - HENRIETTA [id number] 03:43:00* Test Item Value Reference Range Interpretation Comments PHOSPHORUS (BEAKER) (test code = 604) 3.6 mg/dL 2.3-4.7 Supervisor Pre Wave ID - HENRIETTA [id number] 03:43:00* Test Item Value Reference Range Interpretation Comments MAGNESIUM (BEAKER) (test code = 627) 2.7 mg/dL 1.6-2.6 H Supervisor Pre Wave ID - HENRIETTA LCBC W/PLT COUNT & AUTO [id number] 03:27:00* Test Item Value Reference Range Interpretation Comments WHITE BLOOD CELL COUNT (BEAKER) (test code = 775) 8.4 K/ L 3.5- 10.5 RED BLOOD CELL COUNT (BEAKER) (test code = 761) 4.04 M/ L 4.63-6 .08 L HEMOGLOBIN (BEAKER) (test code = 410) 12.1 GM/DL 13.7-17.5 L HEMATOCRIT (BEAKER) (test code = 411) 41.1 % 40.1-51.0 MEAN CORPUSCULAR VOLUME (BEAKER) (test code = 753) 101.7 fL 79. 0-92.2 H MEAN CORPUSCULAR HEMOGLOBIN (BEAKER) (test code = 751) 30.0 pg 25.7-32.2 MEAN CORPUSCULAR HEMOGLOBIN CONC (BEAKER) (test code = 752) 29.4 GM/DL 32.3-36.5 L RED CELL DISTRIBUTION WIDTH (BEAKER) (test code = 412) 17.3 % 11.6-14.4 H PLATELET COUNT (BEAKER) (test code = 756) 167 K/CU MM 150-450 MEAN PLATELET VOLUME (BEAKER) (test code = 754) 11.5 fL 9.4-12 .4 NUCLEATED RED BLOOD CELLS (BEAKER) (test code = 413) 0 /100 WBC 0 -0 NEUTROPHILS RELATIVE PERCENT (BEAKER) (test code = 429) 80 % LYMPHOCYTES RELATIVE PERCENT (BEAKER) (test code = 430) 9 % MONOCYTES RELATIVE PERCENT (BEAKER) (test code = 431) 8 % EOSINOPHILS RELATIVE PERCENT (BEAKER) (test code = 432) 0 % BASOPHILS RELATIVE PERCENT (BEAKER) (test code = 437) 0 % NEUTROPHILS ABSOLUTE COUNT (BEAKER) (test code = 670) 6.72 K/ L 1.78-5.38 H LYMPHOCYTES ABSOLUTE COUNT (BEAKER) (test code = 414) 0.77 K/ L 1.32-3.57 L MONOCYTES ABSOLUTE COUNT (BEAKER) (test code = 415) 0.67 K/ L 0. 30-0.82 EOSINOPHILS ABSOLUTE COUNT (BEAKER) (test code = 416) 0.01 K/ L 0.04-0.54 L BASOPHILS ABSOLUTE COUNT (BEAKER) (test code = 417) 0.02 K/ L 0. 01-0.08 IMMATURE GRANULOCYTES-RELATIVE PERCENT (BEAKER) (test code = 2801) 2 % 0-1 H POCT-GLUCOSE [id number] 22:20:00* Test Item Value Reference Range Interpretation Comments POC-GLUCOSE METER (BEAKER) (test code = 1538) 132 mg/dL 70-110 H : Notified RN/MD: TESTED AT [address], [facility]: Supervisor Pre Wave/Rail Specialist ID = [id number] for AMBER GUTIERREZ BASIC METABOLIC [id number] 19:02:00* Test Item Value Reference Range Interpretation Comments SODIUM (BEAKER) (test code = 381) 137 meq/L 136-145 POTASSIUM (BEAKER) (test code = 379) 3.9 meq/L 3.5-5.1 CHLORIDE (BEAKER) (test code = 382) 87 meq/L 98-107 L CO2 (BEAKER) (test code = 355) 40 meq/L 22-29 HH BLOOD UREA NITROGEN (BEAKER) (test code = 354) 50 mg/dL 7-21 H CREATININE (BEAKER) (test code = 358) 1.73 mg/dL 0.57-1.25 H GLUCOSE RANDOM (BEAKER) (test code = 652) 299 mg/dL 70-105 H CALCIUM (BEAKER) (test code = 697) 8.7 mg/dL 8.4-10.2 EGFR (BEAKER) (test code = 1092) 39 mL/min/1.73 sq m ESTIMATED GFR IS NOT ACCURATE CREATININE CLEARANCE IN PREDICTING GLOMERULAR FILTRATION RATE. ESTIMATED GFR IS NOT APPLICABLE FOR DIALYSIS PATIENTS. Supervisor Pre Wave ID - GARRY [id number] 18:58:00* Test Item Value Reference Range Interpretation Comments MAGNESIUM (BEAKER) (test code = 627) 2.9 mg/dL 1.6-2.6 H Supervisor Pre Wave ID - GARRY [id number] 18:58:00* Test Item Value Reference Range Interpretation Comments PHOSPHORUS (BEAKER) (test code = 604) 3.7 mg/dL 2.3-4.7 Supervisor Pre Wave ID - GARRY CPOCT-GLUCOSE [id number] 16:20:00* Test Item Value Reference Range Interpretation Comments POC-GLUCOSE METER (BEAKER) (test code = 1538) 218 mg/dL 70-110 H : TESTED AT [address], [address]: Supervisor Pre Wave/Rail Specialist ID = [id number] for JOS GOTTI POCT-GLUCOSE [id number] 11:30:00* Test Item Value Reference Range Interpretation Comments POC-GLUCOSE METER (BEAKER) (test code = 1538) 177 mg/dL 70-110 H : TESTED AT [address], [address]: Supervisor Pre Wave/Rail Specialist ID = [id number] for JOS GOTTI BASIC METABOLIC [id number] 08:11:00* Test Item Value Reference Range Interpretation Comments SODIUM (BEAKER) (test code = 381) 139 meq/L 136-145 POTASSIUM (BEAKER) (test code = 379) 3.5 meq/L 3.5-5.1 Specimen slightly hemolyzed CHLORIDE (BEAKER) (test code = 382) 92 meq/L 98-107 L CO2 (BEAKER) (test code = 355) 38 meq/L 22-29 H BLOOD UREA NITROGEN (BEAKER) (test code = 354) 42 mg/dL 7-21 H CREATININE (BEAKER) (test code = 358) 1.36 mg/dL 0.57-1.25 H Specimen slightly hemolyzed GLUCOSE RANDOM (BEAKER) (test code = 652) 169 mg/dL 70-105 H CALCIUM (BEAKER) (test code = 697) 8.1 mg/dL 8.4-10.2 L EGFR (BEAKER) (test code = 1092) 51 mL/min/1.73 sq m ESTIMATED GFR IS NOT ACCURATE CREATININE CLEARANCE IN PREDICTING GLOMERULAR FILTRATION RATE. ESTIMATED GFR IS NOT APPLICABLE FOR DIALYSIS PATIENTS. Supervisor Pre Wave ID - SEDA [id number] 08:06:00* Test Item Value Reference Range Interpretation Comments PHOSPHORUS (BEAKER) (test code = 604) 3.3 mg/dL 2.3-4.7 Specimen slightly hemolyzed Supervisor Pre Wave ID - SEDA MPOCT-GLUCOSE [id number] 07:39:00* Test Item Value Reference Range Interpretation Comments POC-GLUCOSE METER (BEAKER) (test code = 1538) 108 mg/dL 70-110 : TESTED AT [facility] [address] [place] [place], [address]: Supervisor Pre Wave/Rail Specialist ID = [id number] for JOS GOTTI Potassium-Stat [id number] 06:12:00* Test Item Value Reference Range Interpretation Comments Potassium (test code = 2823-3) 3.3 meq/L 3.6-5.5 L Lab Interpretation (test code = 24933-3) [facility]normal [facility] [id number] 06:12:00* Test Item Value Reference Range Interpretation Comments POTASSIUM (BEAKER) (test code = 379) 3.3 meq/L 3.6-5.5 L [id number] 03:26:00* Test Item Value Reference Range Interpretation Comments MAGNESIUM (BEAKER) (test code = 627) 1.6 mg/dL 1.6-2.6 Supervisor Pre Wave ID - SEDA MCBC W/PLT COUNT & AUTO [id number] 03:13:00* Test Item Value Reference Range Interpretation Comments WHITE BLOOD CELL COUNT (BEAKER) (test code = 775) 7.9 K/ L 3.5- 10.5 RED BLOOD CELL COUNT (BEAKER) (test code = 761) 3.72 M/ L 4.63-6 .08 L HEMOGLOBIN (BEAKER) (test code = 410) 11.0 GM/DL 13.7-17.5 L HEMATOCRIT (BEAKER) (test code = 411) 37.7 % 40.1-51.0 L MEAN CORPUSCULAR VOLUME (BEAKER) (test code = 753) 101.3 fL 79. 0-92.2 H MEAN CORPUSCULAR HEMOGLOBIN (BEAKER) (test code = 751) 29.6 pg 25.7-32.2 MEAN CORPUSCULAR HEMOGLOBIN CONC (BEAKER) (test code = 752) 29.2 GM/DL 32.3-36.5 L RED CELL DISTRIBUTION WIDTH (BEAKER) (test code = 412) 17.7 % 11.6-14.4 H PLATELET COUNT (BEAKER) (test code = 756) 161 K/CU MM 150-450 MEAN PLATELET VOLUME (BEAKER) (test code = 754) 11.0 fL 9.4-12 .4 NUCLEATED RED BLOOD CELLS (BEAKER) (test code = 413) 1 /100 WBC 0 -0 H NEUTROPHILS RELATIVE PERCENT (BEAKER) (test code = 429) 78 % LYMPHOCYTES RELATIVE PERCENT (BEAKER) (test code = 430) 9 % MONOCYTES RELATIVE PERCENT (BEAKER) (test code = 431) 9 % EOSINOPHILS RELATIVE PERCENT (BEAKER) (test code = 432) 0 % BASOPHILS RELATIVE PERCENT (BEAKER) (test code = 437) 0 % NEUTROPHILS ABSOLUTE COUNT (BEAKER) (test code = 670) 6.20 K/ L 1.78-5.38 H LYMPHOCYTES ABSOLUTE COUNT (BEAKER) (test code = 414) 0.73 K/ L 1.32-3.57 L MONOCYTES ABSOLUTE COUNT (BEAKER) (test code = 415) 0.71 K/ L 0. 30-0.82 EOSINOPHILS ABSOLUTE COUNT (BEAKER) (test code = 416) 0.00 K/ L 0.04-0.54 L BASOPHILS ABSOLUTE COUNT (BEAKER) (test code = 417) 0.02 K/ L 0. 01-0.08 IMMATURE GRANULOCYTES-RELATIVE PERCENT (BEAKER) (test code = 2801) 4 % 0-1 H POCT-GLUCOSE [id number] 23:03:00* Test Item Value Reference Range Interpretation Comments POC-GLUCOSE METER (BEAKER) (test code = 1538) 155 mg/dL 70-110 H : TESTED AT [facility] [address] [facility], [address]: Supervisor Pre Wave/Rail Specialist ID = [id number] for MIGUEL ANGEL MATHIS [id number] 16:35:00* Test Item Value Reference Range Interpretation Comments PHOSPHORUS (BEAKER) (test code = 604) 3.5 mg/dL 2.3-4.7 Supervisor Pre Wave ID - [id number] 16:35:00* Test Item Value Reference Range Interpretation Comments MAGNESIUM (BEAKER) (test code = 627) 2.0 mg/dL 1.6-2.6 Supervisor Pre Wave ID - DBBASIC METABOLIC [id number] 16:35:00* Test Item Value Reference Range Interpretation Comments SODIUM (BEAKER) (test code = 381) 139 meq/L 136-145 POTASSIUM (BEAKER) (test code = 379) 3.9 meq/L 3.5-5.1 CHLORIDE (BEAKER) (test code = 382) 91 meq/L 98-107 L CO2 (BEAKER) (test code = 355) 39 meq/L 22-29 H BLOOD UREA NITROGEN (BEAKER) (test code = 354) 49 mg/dL 7-21 H CREATININE (BEAKER) (test code = 358) 1.59 mg/dL 0.57-1.25 H GLUCOSE RANDOM (BEAKER) (test code = 652) 259 mg/dL 70-105 H CALCIUM (BEAKER) (test code = 697) 8.4 mg/dL 8.4-10.2 EGFR (BEAKER) (test code = 1092) 43 mL/min/1.73 sq m ESTIMATED GFR IS NOT ACCURATE CREATININE CLEARANCE IN PREDICTING GLOMERULAR FILTRATION RATE. ESTIMATED GFR IS NOT APPLICABLE FOR DIALYSIS PATIENTS. Supervisor Pre Wave ID - DBPOCT-GLUCOSE [id number] 16:17:00* Test Item Value Reference Range Interpretation Comments POC-GLUCOSE METER (BEAKER) (test code = 1538) 214 mg/dL 70-110 H : TESTED AT [address], [address]: Supervisor Pre Wave/Rail Specialist ID = [id number] for BRENNEN DAVID POCT-GLUCOSE [id number] 11:08:00* Test Item Value Reference Range Interpretation Comments POC-GLUCOSE METER (BEAKER) (test code = 1538) 183 mg/dL 70-110 H : TESTED AT [address], [address]: Supervisor Pre Wave/Rail Specialist ID = [id number] for Gusman Sheldon POCT-GLUCOSE [id number] 06:54:00* Test Item Value Reference Range Interpretation Comments POC-GLUCOSE METER (BEAKER) (test code = 1538) 90 mg/dL 70-110 : TESTED AT [place] [id number] [facility], [address]: Supervisor Pre Wave/Rail Specialist ID = [id number] for Mila Browning [id number] 05:46:00* Test Item Value Reference Range Interpretation Comments PHOSPHORUS (BEAKER) (test code = 604) 3.2 mg/dL 2.3-4.7 Supervisor Pre Wave ID - SEDA [id number] 05:46:00* Test Item Value Reference Range Interpretation Comments MAGNESIUM (BEAKER) (test code = 627) 2.1 mg/dL 1.6-2.6 Supervisor Pre Wave ID - SEDA MBASIC METABOLIC [id number] 05:46:00* Test Item Value Reference Range Interpretation Comments SODIUM (BEAKER) (test code = 381) 138 meq/L 136-145 POTASSIUM (BEAKER) (test code = 379) 3.4 meq/L 3.5-5.1 L CHLORIDE (BEAKER) (test code = 382) 91 meq/L 98-107 L CO2 (BEAKER) (test code = 355) 39 meq/L 22-29 H BLOOD UREA NITROGEN (BEAKER) (test code = 354) 48 mg/dL 7-21 H CREATININE (BEAKER) (test code = 358) 1.37 mg/dL 0.57-1.25 H GLUCOSE RANDOM (BEAKER) (test code = 652) 119 mg/dL 70-105 H CALCIUM (BEAKER) (test code = 697) 8.9 mg/dL 8.4-10.2 EGFR (BEAKER) (test code = 1092) 51 mL/min/1.73 sq m ESTIMATED GFR IS NOT ACCURATE CREATININE CLEARANCE IN PREDICTING GLOMERULAR FILTRATION RATE. ESTIMATED GFR IS NOT APPLICABLE FOR DIALYSIS PATIENTS. Supervisor Pre Wave ID - SEDA MCBC W/PLT COUNT & AUTO [id number] 05:44:00* Test Item Value Reference Range Interpretation Comments WHITE BLOOD CELL COUNT (BEAKER) (test code = 775) 8.9 K/ L 3.5- 10.5 RED BLOOD CELL COUNT (BEAKER) (test code = 761) 3.66 M/ L 4.63-6 .08 L HEMOGLOBIN (BEAKER) (test code = 410) 11.0 GM/DL 13.7-17.5 L HEMATOCRIT (BEAKER) (test code = 411) 37.1 % 40.1-51.0 L MEAN CORPUSCULAR VOLUME (BEAKER) (test code = 753) 101.4 fL 79. 0-92.2 H MEAN CORPUSCULAR HEMOGLOBIN (BEAKER) (test code = 751) 30.1 pg 25.7-32.2 MEAN CORPUSCULAR HEMOGLOBIN CONC (BEAKER) (test code = 752) 29.6 GM/DL 32.3-36.5 L RED CELL DISTRIBUTION WIDTH (BEAKER) (test code = 412) 17.9 % 11.6-14.4 H PLATELET COUNT (BEAKER) (test code = 756) 182 K/CU MM 150-450 MEAN PLATELET VOLUME (BEAKER) (test code = 754) 10.9 fL 9.4-12 .4 NUCLEATED RED BLOOD CELLS (BEAKER) (test code = 413) 1 /100 WBC 0 -0 H NEUTROPHILS RELATIVE PERCENT (BEAKER) (test code = 429) 76 % LYMPHOCYTES RELATIVE PERCENT (BEAKER) (test code = 430) 10 % MONOCYTES RELATIVE PERCENT (BEAKER) (test code = 431) 11 % EOSINOPHILS RELATIVE PERCENT (BEAKER) (test code = 432) 0 % BASOPHILS RELATIVE PERCENT (BEAKER) (test code = 437) 0 % NEUTROPHILS ABSOLUTE COUNT (BEAKER) (test code = 670) 6.75 K/ L 1.78-5.38 H LYMPHOCYTES ABSOLUTE COUNT (BEAKER) (test code = 414) 0.91 K/ L 1.32-3.57 L MONOCYTES ABSOLUTE COUNT (BEAKER) (test code = 415) 0.96 K/ L 0. 30-0.82 H EOSINOPHILS ABSOLUTE COUNT (BEAKER) (test code = 416) 0.02 K/ L 0.04-0.54 L BASOPHILS ABSOLUTE COUNT (BEAKER) (test code = 417) 0.02 K/ L 0. 01-0.08 IMMATURE GRANULOCYTES-RELATIVE PERCENT (BEAKER) (test code = 2801) 3 % 0-1 H OXYGEN SATURATION, [id number] 05:21:00* Test Item Value Reference Range Interpretation Comments O2 SATURATION (MEASURED) (BEAKER) (test code = 1455) 75.7 % [id number] 00:52:00* Test Item Value Reference Range Interpretation Comments PHOSPHORUS (BEAKER) (test code = 604) 3.5 mg/dL 2.3-4.7 Supervisor Pre Wave ID - SEDA [id number] 00:52:00* Test Item Value Reference Range Interpretation Comments MAGNESIUM (BEAKER) (test code = 627) 2.1 mg/dL 1.6-2.6 Supervisor Pre Wave ID - SEDA MBASIC METABOLIC [id number] 00:52:00* Test Item Value Reference Range Interpretation Comments SODIUM (BEAKER) (test code = 381) 138 meq/L 136-145 POTASSIUM (BEAKER) (test code = 379) 3.6 meq/L 3.5-5.1 CHLORIDE (BEAKER) (test code = 382) 91 meq/L 98-107 L CO2 (BEAKER) (test code = 355) 39 meq/L 22-29 H BLOOD UREA NITROGEN (BEAKER) (test code = 354) 47 mg/dL 7-21 H CREATININE (BEAKER) (test code = 358) 1.42 mg/dL 0.57-1.25 H GLUCOSE RANDOM (BEAKER) (test code = 652) 135 mg/dL 70-105 H CALCIUM (BEAKER) (test code = 697) 9.2 mg/dL 8.4-10.2 EGFR (BEAKER) (test code = 1092) 49 mL/min/1.73 sq m ESTIMATED GFR IS NOT ACCURATE CREATININE CLEARANCE IN PREDICTING GLOMERULAR FILTRATION RATE. ESTIMATED GFR IS NOT APPLICABLE FOR DIALYSIS PATIENTS. Supervisor Pre Wave ID - SEDA MCBC W/PLT COUNT & AUTO [id number] 00:47:00* Test Item Value Reference Range Interpretation Comments WHITE BLOOD CELL COUNT (BEAKER) (test code = 775) 8.6 K/ L 3.5- 10.5 RED BLOOD CELL COUNT (BEAKER) (test code = 761) 3.81 M/ L 4.63-6 .08 L HEMOGLOBIN (BEAKER) (test code = 410) 11.2 GM/DL 13.7-17.5 L HEMATOCRIT (BEAKER) (test code = 411) 38.3 % 40.1-51.0 L MEAN CORPUSCULAR VOLUME (BEAKER) (test code = 753) 100.5 fL 79. 0-92.2 H MEAN CORPUSCULAR HEMOGLOBIN (BEAKER) (test code = 751) 29.4 pg 25.7-32.2 MEAN CORPUSCULAR HEMOGLOBIN CONC (BEAKER) (test code = 752) 29.2 GM/DL 32.3-36.5 L RED CELL DISTRIBUTION WIDTH (BEAKER) (test code = 412) 18.2 % 11.6-14.4 H PLATELET COUNT (BEAKER) (test code = 756) 189 K/CU MM 150-450 MEAN PLATELET VOLUME (BEAKER) (test code = 754) 10.9 fL 9.4-12 .4 NUCLEATED RED BLOOD CELLS (BEAKER) (test code = 413) 1 /100 WBC 0 -0 H NEUTROPHILS RELATIVE PERCENT (BEAKER) (test code = 429) 77 % LYMPHOCYTES RELATIVE PERCENT (BEAKER) (test code = 430) 9 % MONOCYTES RELATIVE PERCENT (BEAKER) (test code = 431) 10 % EOSINOPHILS RELATIVE PERCENT (BEAKER) (test code = 432) 0 % BASOPHILS RELATIVE PERCENT (BEAKER) (test code = 437) 0 % NEUTROPHILS ABSOLUTE COUNT (BEAKER) (test code = 670) 6.60 K/ L 1.78-5.38 H LYMPHOCYTES ABSOLUTE COUNT (BEAKER) (test code = 414) 0.81 K/ L 1.32-3.57 L MONOCYTES ABSOLUTE COUNT (BEAKER) (test code = 415) 0.83 K/ L 0. 30-0.82 H EOSINOPHILS ABSOLUTE COUNT (BEAKER) (test code = 416) 0.01 K/ L 0.04-0.54 L BASOPHILS ABSOLUTE COUNT (BEAKER) (test code = 417) 0.03 K/ L 0. 01-0.08 IMMATURE GRANULOCYTES-RELATIVE PERCENT (BEAKER) (test code = 2801) 4 % 0-1 H CBC (HEMOGRAM ONLY)2020-07-08 00:47:00* Test Item Value Reference Range Interpretation Comments WHITE BLOOD CELL COUNT (BEAKER) (test code = 775) 8.6 K/ L 3.5- 10.5 RED BLOOD CELL COUNT (BEAKER) (test code = 761) 3.81 M/ L 4.63-6 .08 L HEMOGLOBIN (BEAKER) (test code = 410) 11.2 GM/DL 13.7-17.5 L HEMATOCRIT (BEAKER) (test code = 411) 38.3 % 40.1-51.0 L MEAN CORPUSCULAR VOLUME (BEAKER) (test code = 753) 100.5 fL 79. 0-92.2 H MEAN CORPUSCULAR HEMOGLOBIN (BEAKER) (test code = 751) 29.4 pg 25.7-32.2 MEAN CORPUSCULAR HEMOGLOBIN CONC (BEAKER) (test code = 752) 29.2 GM/DL 32.3-36.5 L RED CELL DISTRIBUTION WIDTH (BEAKER) (test code = 412) 18.2 % 11.6-14.4 H PLATELET COUNT (BEAKER) (test code = 756) 189 K/CU MM 150-450 MEAN PLATELET VOLUME (BEAKER) (test code = 754) 10.9 fL 9.4-12 .4 NUCLEATED RED BLOOD CELLS (BEAKER) (test code = 413) 1 /100 WBC 0 -0 H OXYGEN SATURATION, [id number] 00:38:00* Test Item Value Reference Range Interpretation Comments O2 SATURATION (MEASURED) (BEAKER) (test code = 1455) 80.4 % CALCIUM, [id number] 00:38:00* Test Item Value Reference Range Interpretation Comments CALCIUM IONIZED (BEAKER) (test code = 698) 1.17 mmol/L 1.12-1.27 PH, BLOOD (BEAKER) (test code = 1810) 7.38 RAD, CHEST, 1 VIEW, NON [id number] 00:30:00Reason for exam:->SOBShould this be performed at the bedside?->YesFINAL REPORT CLINICAL INDICATION: Shortness of breath Comparison: 07/06/2020 The cardiomediastinal contours are stable. Central pulmonary vascular prominence and bilateral parenchymal opacities are unchanged. A right IJ PA catheter tip overlies the right hilum. There is no associated pneumothorax or hematoma. Signed: Jenny Adkins MDReport Verified Date/Time: 07/08/2020 00:30:21 -GLUCOSE METER 2020-07-07 12:17:00* Test Item Value Reference Range Interpretation Comments POC-GLUCOSE METER (BEAKER) (test code = 1538) 144 mg/dL 70-110 H : TESTED AT [facility] [address] [place], [address]: Supervisor Pre Wave/Rail Specialist ID = [id number] for ELBA CABA POCT-GLUCOSE [id number] 07:06:00* Test Item Value Reference Range Interpretation Comments POC-GLUCOSE METER (BEAKER) (test code = 1538) 161 mg/dL 70-110 H : TESTED AT [facility] [address] [facility], [address]: Supervisor Pre Wave/Rail Specialist ID = [id number] for ELBA CABA [id number] 07:01:00* Test Item Value Reference Range Interpretation Comments MAGNESIUM (BEAKER) (test code = 627) 2.3 mg/dL 1.6-2.6 Supervisor Pre Wave ID - EDASIBASIC METABOLIC [id number] 07:01:00* Test Item Value Reference Range Interpretation Comments SODIUM (BEAKER) (test code = 381) 138 meq/L 136-145 POTASSIUM (BEAKER) (test code = 379) 3.6 meq/L 3.5-5.1 CHLORIDE (BEAKER) (test code = 382) 91 meq/L 98-107 L CO2 (BEAKER) (test code = 355) 36 meq/L 22-29 H BLOOD UREA NITROGEN (BEAKER) (test code = 354) 55 mg/dL 7-21 H CREATININE (BEAKER) (test code = 358) 1.82 mg/dL 0.57-1.25 H GLUCOSE RANDOM (BEAKER) (test code = 652) 205 mg/dL 70-105 H CALCIUM (BEAKER) (test code = 697) 9.2 mg/dL 8.4-10.2 EGFR (BEAKER) (test code = 1092) 36 mL/min/1.73 sq m ESTIMATED GFR IS NOT ACCURATE CREATININE CLEARANCE IN PREDICTING GLOMERULAR FILTRATION RATE. ESTIMATED GFR IS NOT APPLICABLE FOR DIALYSIS PATIENTS. Supervisor Pre Wave ID - EDASIPOCT-GLUCOSE [id number] 21:46:00* Test Item Value Reference Range Interpretation Comments POC-GLUCOSE METER (BEAKER) (test code = 1538) 230 mg/dL 70-110 H : TESTED AT [facility] [address] [place], [address]: Supervisor Pre Wave/Rail Specialist ID = [id number] for AMBER LLANES SARS-COV2/RT-PCR ([facility])2020-07-06 20:04:00* Test Item Value Reference Range Interpretation Comments SARS-COV2/RT-PCR (test code = 5887818) Negative N ot Detected, Negative, See external report for linked test SARS-COV-2 PERFORMING LAB (test code = 1847738) [facility] Negative result for this test determines that SARS-CoV-2 RNA was not present in the specimen above the Limit of Detection (LOD). However, Negative results do n ot preclude SARS-CoV-2 infection and should not be used as the sole basis for tr eatment or patient management decisions. Negative results must be combined with clinical observations, patient history, and epidemiological information. A false negative result may occur if a specimen is improperly collected, transported or handled. A false negative result should be considered if patient's recent expo sures or clinical presentation indicate that COVID-19 (SARS-CoV-2) is likely and diagnostic tests for other causes of illness are negative. Re-testing should be considered in cases of suspected false negatives.The limit of detection for this assay is 800 copies/mL.This SARS CoV-2 test is a real-time RT-PCR test intended for the qualitative detection of nucleic acid from SARS-CoV-2 in a nasopharyn geal swab specimen collected from individuals suspected of COVID-19 by their [facility] provider.This test has not been Food and Drug Administration (FDA) clear ed or approved. This is a modified version of an approved Emergency Use Authori zation (EUA) and is in the process of review by the FDA. Once authorized by [facility] FDA, the issued EUA will be effective until the declaration that circumstances exist justifying the authorization of the emergency use of in vitro diagnostic tests for detection and/or diagnosis of COVID-19 is terminated under Section 564 (b)(2) of the Act or the EUA is revoked under Section 564(g) of the Act.Fact She et for Healthcare Providers:https://www.[employer].com/sites/default/files/product/d ocuments/Bnzt_Ijrmh_AH_Pdlbskayp_Naka_DROV-YoC-3.pdfFact Sheet for Healthcare Pa david:https://www.[employer]/sites/default/files/product/documents/Fact_Sheet_P bczhlcj_Hftp_MCSR-ZbI-2.pdfPerforming Laboratory:[facility] [address], [place] [address]LOMB-KYEPCIK [id number] 17:13:00* Test Item Value Reference Range Interpretation Comments POC-GLUCOSE METER (BEAKER) (test code = 1538) 302 mg/dL 70-110 H : TESTED AT [facility] [address] [facility], [address]: Supervisor Pre Wave/Rail Specialist ID = [id number] for HERNAN PÉREZ RAD, CHEST, 1 VIEW, NON [id number] 15:24:00Reason for exam:->Fluid overloadShould this be performed at the bedside?->YesFINAL REPORT INDICATION: Fluid overload COMPARISON: None TECHNIQUE: Single frontal view of the chest. FINDINGS: Lungs and pleura: Bilateral platelike atelectasis is not significantly changed. Ill-defined airspace disease within the right peripheral lung is again noted. No effusion.Heart and mediastinum: Normal heart size. Unremarkable mediastinal contours.Osseous structures: No acute abnormality.Other: None. Signed: Partha Montes Verified Date/Time: 07/06/2020 15:24:18 Reading Location: [facility] Radiology Reading Room -GLUCOSE [id number] 11:57:00* Test Item Value Reference Range Interpretation Comments POC-GLUCOSE METER (BEAKER) (test code = 1538) 181 mg/dL 70-110 H : TESTED AT [place] [id number] [facility], [address]: Supervisor Pre Wave/Rail Specialist ID = [id number] for HERNAN PÉREZ [id number] 08:11:00* Test Item Value Reference Range Interpretation Comments PHOSPHORUS (BEAKER) (test code = 604) 3.7 mg/dL 2.3-4.7 Supervisor Pre Wave ID - [id number] 08:11:00* Test Item Value Reference Range Interpretation Comments MAGNESIUM (BEAKER) (test code = 627) 2.2 mg/dL 1.6-2.6 Supervisor Pre Wave ID - EDASIBASIC METABOLIC [id number] 08:11:00* Test Item Value Reference Range Interpretation Comments SODIUM (BEAKER) (test code = 381) 137 meq/L 136-145 POTASSIUM (BEAKER) (test code = 379) 3.7 meq/L 3.5-5.1 CHLORIDE (BEAKER) (test code = 382) 90 meq/L 98-107 L CO2 (BEAKER) (test code = 355) 38 meq/L 22-29 H BLOOD UREA NITROGEN (BEAKER) (test code = 354) 52 mg/dL 7-21 H CREATININE (BEAKER) (test code = 358) 1.87 mg/dL 0.57-1.25 H GLUCOSE RANDOM (BEAKER) (test code = 652) 238 mg/dL 70-105 H CALCIUM (BEAKER) (test code = 697) 8.8 mg/dL 8.4-10.2 EGFR (BEAKER) (test code = 1092) 35 mL/min/1.73 sq m ESTIMATED GFR IS NOT ACCURATE CREATININE CLEARANCE IN PREDICTING GLOMERULAR FILTRATION RATE. ESTIMATED GFR IS NOT APPLICABLE FOR DIALYSIS PATIENTS. Supervisor Pre Wave ID - EDASIPOCT-GLUCOSE [id number] 07:42:00* Test Item Value Reference Range Interpretation Comments POC-GLUCOSE METER (BEAKER) (test code = 1538) 206 mg/dL 70-110 H : TESTED AT [facility] [address] [facility], [address]: Supervisor Pre Wave/Rail Specialist ID = [id number] for HERNAN PÉREZ CBC W/PLT COUNT & AUTO [id number] 06:35:00* Test Item Value Reference Range Interpretation Comments WHITE BLOOD CELL COUNT (BEAKER) (test code = 775) 7.6 K/ L 3.5- 10.5 RED BLOOD CELL COUNT (BEAKER) (test code = 761) 3.60 M/ L 4.63-6 .08 L HEMOGLOBIN (BEAKER) (test code = 410) 10.7 GM/DL 13.7-17.5 L HEMATOCRIT (BEAKER) (test code = 411) 36.7 % 40.1-51.0 L MEAN CORPUSCULAR VOLUME (BEAKER) (test code = 753) 101.9 fL 79. 0-92.2 H MEAN CORPUSCULAR HEMOGLOBIN (BEAKER) (test code = 751) 29.7 pg 25.7-32.2 MEAN CORPUSCULAR HEMOGLOBIN CONC (BEAKER) (test code = 752) 29.2 GM/DL 32.3-36.5 L RED CELL DISTRIBUTION WIDTH (BEAKER) (test code = 412) 18.1 % 11.6-14.4 H PLATELET COUNT (BEAKER) (test code = 756) 197 K/CU MM 150-450 MEAN PLATELET VOLUME (BEAKER) (test code = 754) 10.8 fL 9.4-12 .4 NUCLEATED RED BLOOD CELLS (BEAKER) (test code = 413) 1 /100 WBC 0 -0 H NEUTROPHILS RELATIVE PERCENT (BEAKER) (test code = 429) 80 % LYMPHOCYTES RELATIVE PERCENT (BEAKER) (test code = 430) 9 % MONOCYTES RELATIVE PERCENT (BEAKER) (test code = 431) 6 % EOSINOPHILS RELATIVE PERCENT (BEAKER) (test code = 432) 0 % BASOPHILS RELATIVE PERCENT (BEAKER) (test code = 437) 0 % NEUTROPHILS ABSOLUTE COUNT (BEAKER) (test code = 670) 6.09 K/ L 1.78-5.38 H LYMPHOCYTES ABSOLUTE COUNT (BEAKER) (test code = 414) 0.67 K/ L 1.32-3.57 L MONOCYTES ABSOLUTE COUNT (BEAKER) (test code = 415) 0.47 K/ L 0. 30-0.82 EOSINOPHILS ABSOLUTE COUNT (BEAKER) (test code = 416) 0.01 K/ L 0.04-0.54 L BASOPHILS ABSOLUTE COUNT (BEAKER) (test code = 417) 0.01 K/ L 0. 01-0.08 IMMATURE GRANULOCYTES-RELATIVE PERCENT (BEAKER) (test code = 2801) 5 % 0-1 H B-TYPE NATRIURETIC FACTOR (BNP)2020-07-06 06:00:00* Test Item Value Reference Range Interpretation Comments B-TYPE NATRIURETIC PEPTIDE (BEAKER) (test code = 700) 827 pg/mL 0-100 H Supervisor Pre Wave ID - EDASICALCIUM, [id number] 05:48:00* Test Item Value Reference Range Interpretation Comments CALCIUM IONIZED (BEAKER) (test code = 698) 1.19 mmol/L 1.12-1.27 PH, BLOOD (BEAKER) (test code = 1810) 7.31 POCT-GLUCOSE [id number] 16:48:00* Test Item Value Reference Range Interpretation Comments POC-GLUCOSE METER (BEAKER) (test code = 1538) 166 mg/dL 70-110 H : TESTED AT [facility] [address] [facility], [address]: Supervisor Pre Wave/Rail Specialist ID = [id number] for FRANCI SALES [id number] 15:34:00* Test Item Value Reference Range Interpretation Comments C-Peptide (test code = 2393407) 7.68 ng/mL 0.8-3.85 H MARCO (test code = MARCO) Performing Lab EZ [facility] est [facility] [address] [place] [address] Alli Bee MD, PhD, GALI Lab Interpretation (test code = 23840-5) Abnormal [facility] [id number] 11:44:00* Test Item Value Reference Range Interpretation Comments POC-GLUCOSE METER (BEAKER) (test code = 1538) 195 mg/dL 70-110 H : TESTED AT [facility] [address] [facility], [address]: Supervisor Pre Wave/Rail Specialist ID = [id number] for FRANCI SALES BASIC METABOLIC [id number] 11:29:00* Test Item Value Reference Range Interpretation Comments SODIUM (BEAKER) (test code = 381) 138 meq/L 136-145 POTASSIUM (BEAKER) (test code = 379) 3.3 meq/L 3.5-5.1 L CHLORIDE (BEAKER) (test code = 382) 89 meq/L 98-107 L CO2 (BEAKER) (test code = 355) 41 meq/L 22-29 HH BLOOD UREA NITROGEN (BEAKER) (test code = 354) 46 mg/dL 7-21 H CREATININE (BEAKER) (test code = 358) 1.54 mg/dL 0.57-1.25 H GLUCOSE RANDOM (BEAKER) (test code = 652) 200 mg/dL 70-105 H CALCIUM (BEAKER) (test code = 697) 9.3 mg/dL 8.4-10.2 EGFR (BEAKER) (test code = 1092) 44 mL/min/1.73 sq m ESTIMATED GFR IS NOT ACCURATE CREATININE CLEARANCE IN PREDICTING GLOMERULAR FILTRATION RATE. ESTIMATED GFR IS NOT APPLICABLE FOR DIALYSIS PATIENTS. Supervisor Pre Wave ID - PIAYA [id number] 11:15:00* Test Item Value Reference Range Interpretation Comments MAGNESIUM (BEAKER) (test code = 627) 2.1 mg/dL 1.6-2.6 Supervisor Pre Wave ID - HENRIETTA LPOCT-GLUCOSE [id number] 07:59:00* Test Item Value Reference Range Interpretation Comments POC-GLUCOSE METER (BEAKER) (test code = 1538) 113 mg/dL 70-110 H : TESTED AT [place] [address] [facility], [address]: Supervisor Pre Wave/Rail Specialist ID = [id number] for FRANCI SALES POCT-GLUCOSE [id number] 21:22:00* Test Item Value Reference Range Interpretation Comments POC-GLUCOSE METER (BEAKER) (test code = 1538) 223 mg/dL 70-110 H : TESTED AT [address], [address]: Supervisor Pre Wave/Rail Specialist ID = [id number] for AMBER LLANES POCT-GLUCOSE [id number] 16:42:00* Test Item Value Reference Range Interpretation Comments POC-GLUCOSE METER (BEAKER) (test code = 1538) 195 mg/dL 70-110 H : TESTED AT [place] [address] [facility], [address]: Supervisor Pre Wave/Rail Specialist ID = [id number] for ELBA CABA POCT-GLUCOSE [id number] 12:10:00* Test Item Value Reference Range Interpretation Comments POC-GLUCOSE METER (BEAKER) (test code = 1538) 164 mg/dL 70-110 H : TESTED AT [place] [address] [facility], [address]: Supervisor Pre Wave/Rail Specialist ID = [id number] for ELBA CABA [id number] 08:19:00* Test Item Value Reference Range Interpretation Comments PHOSPHORUS (BEAKER) (test code = 604) 3.2 mg/dL 2.3-4.7 Supervisor Pre Wave ID - GARRY [id number] 08:19:00* Test Item Value Reference Range Interpretation Comments MAGNESIUM (BEAKER) (test code = 627) 2.1 mg/dL 1.6-2.6 Supervisor Pre Wave ID - GARRY CBASIC METABOLIC [id number] 08:19:00* Test Item Value Reference Range Interpretation Comments SODIUM (BEAKER) (test code = 381) 138 meq/L 136-145 POTASSIUM (BEAKER) (test code = 379) 3.7 meq/L 3.5-5.1 CHLORIDE (BEAKER) (test code = 382) 94 meq/L 98-107 L CO2 (BEAKER) (test code = 355) 36 meq/L 22-29 H BLOOD UREA NITROGEN (BEAKER) (test code = 354) 46 mg/dL 7-21 H CREATININE (BEAKER) (test code = 358) 1.53 mg/dL 0.57-1.25 H GLUCOSE RANDOM (BEAKER) (test code = 652) 180 mg/dL 70-105 H CALCIUM (BEAKER) (test code = 697) 8.5 mg/dL 8.4-10.2 EGFR (BEAKER) (test code = 1092) 45 mL/min/1.73 sq m ESTIMATED GFR IS NOT ACCURATE CREATININE CLEARANCE IN PREDICTING GLOMERULAR FILTRATION RATE. ESTIMATED GFR IS NOT APPLICABLE FOR DIALYSIS PATIENTS. Supervisor Pre Wave ID - GARRY CPOCT-GLUCOSE [id number] 07:08:00* Test Item Value Reference Range Interpretation Comments POC-GLUCOSE METER (BEAKER) (test code = 1538) 105 mg/dL 70-110 : TESTED AT [address], [address]: Supervisor Pre Wave/Rail Specialist ID = [id number] for ROSALESELBA CBC W/PLT COUNT & AUTO [id number] 06:25:00* Test Item Value Reference Range Interpretation Comments WHITE BLOOD CELL COUNT (BEAKER) (test code = 775) 6.6 K/ L 3.5- 10.5 RED BLOOD CELL COUNT (BEAKER) (test code = 761) 3.29 M/ L 4.63-6 .08 L HEMOGLOBIN (BEAKER) (test code = 410) 9.9 GM/DL 13.7-17.5 L HEMATOCRIT (BEAKER) (test code = 411) 34.0 % 40.1-51.0 L MEAN CORPUSCULAR VOLUME (BEAKER) (test code = 753) 103.3 fL 79. 0-92.2 H MEAN CORPUSCULAR HEMOGLOBIN (BEAKER) (test code = 751) 30.1 pg 25.7-32.2 MEAN CORPUSCULAR HEMOGLOBIN CONC (BEAKER) (test code = 752) 29.1 GM/DL 32.3-36.5 L RED CELL DISTRIBUTION WIDTH (BEAKER) (test code = 412) 18.8 % 11.6-14.4 H PLATELET COUNT (BEAKER) (test code = 756) 192 K/CU MM 150-450 MEAN PLATELET VOLUME (BEAKER) (test code = 754) 11.0 fL 9.4-12 .4 NUCLEATED RED BLOOD CELLS (BEAKER) (test code = 413) 1 /100 WBC 0 -0 H NEUTROPHILS RELATIVE PERCENT (BEAKER) (test code = 429) 75 % LYMPHOCYTES RELATIVE PERCENT (BEAKER) (test code = 430) 10 % MONOCYTES RELATIVE PERCENT (BEAKER) (test code = 431) 11 % EOSINOPHILS RELATIVE PERCENT (BEAKER) (test code = 432) 0 % BASOPHILS RELATIVE PERCENT (BEAKER) (test code = 437) 0 % NEUTROPHILS ABSOLUTE COUNT (BEAKER) (test code = 670) 4.98 K/ L 1.78-5.38 LYMPHOCYTES ABSOLUTE COUNT (BEAKER) (test code = 414) 0.67 K/ L 1.32-3.57 L MONOCYTES ABSOLUTE COUNT (BEAKER) (test code = 415) 0.72 K/ L 0. 30-0.82 EOSINOPHILS ABSOLUTE COUNT (BEAKER) (test code = 416) 0.02 K/ L 0.04-0.54 L BASOPHILS ABSOLUTE COUNT (BEAKER) (test code = 417) 0.02 K/ L 0. 01-0.08 IMMATURE GRANULOCYTES-RELATIVE PERCENT (BEAKER) (test code = 2801) 3 % 0-1 H CALCIUM, [id number] 05:30:00* Test Item Value Reference Range Interpretation Comments CALCIUM IONIZED (BEAKER) (test code = 698) 1.17 mmol/L 1.12-1.27 PH, BLOOD (BEAKER) (test code = 1810) 7.32 POCT-GLUCOSE [id number] 21:19:00* Test Item Value Reference Range Interpretation Comments POC-GLUCOSE METER (BEAKER) (test code = 1538) 188 mg/dL 70-110 H : TESTED AT [address], [address]: Supervisor Pre Wave/Rail Specialist ID = [id number] for Chaka Franci POCT-GLUCOSE [id number] 16:35:00* Test Item Value Reference Range Interpretation Comments POC-GLUCOSE METER (BEAKER) (test code = 1538) 188 mg/dL 70-110 H : TESTED AT [place] [address] [facility], [address]: Supervisor Pre Wave/Rail Specialist ID = [id number] for HERNAN PÉREZ BLOOD GAS, [id number] 13:17:00* Test Item Value Reference Range Interpretation Comments PH VENOUS (BEAKER) (test code = 701) 7.44 7.32-7.42 H PCO2 VENOUS (BEAKER) (test code = 755) 54 mmHg 41-51 H PO2 VENOUS (BEAKER) (test code = 702) 134 mmHg 25-40 H O2 SATURATION VENOUS (BEAKER) (test code = 703) 98.7 % 40.0-7 0.0 H HCO3 VENOUS (BEAKER) (test code = 705) 36 mmol/L 21-29 H BASE EXCESS VENOUS (BEAKER) (test code = 704) 9.8 mmol/L -2.0-3.0 H PATIENT TEMPERATURE (BEAKER) (test code = 1818) 37.0 C FIO2 (BEAKER) (test code = 1819) 21.0 % POCT-GLUCOSE [id number] 12:10:00* Test Item Value Reference Range Interpretation Comments POC-GLUCOSE METER (BEAKER) (test code = 1538) 172 mg/dL 70-110 H : TESTED AT [address] [place], [address]: Supervisor Pre Wave/Rail Specialist ID = [id number] for HERNAN PÉREZ BASIC METABOLIC [id number] 08:16:00* Test Item Value Reference Range Interpretation Comments SODIUM (BEAKER) (test code = 381) 139 meq/L 136-145 POTASSIUM (BEAKER) (test code = 379) 3.6 meq/L 3.5-5.1 CHLORIDE (BEAKER) (test code = 382) 92 meq/L 98-107 L CO2 (BEAKER) (test code = 355) 40 meq/L 22-29 HH BLOOD UREA NITROGEN (BEAKER) (test code = 354) 46 mg/dL 7-21 H CREATININE (BEAKER) (test code = 358) 1.42 mg/dL 0.57-1.25 H GLUCOSE RANDOM (BEAKER) (test code = 652) 132 mg/dL 70-105 H CALCIUM (BEAKER) (test code = 697) 8.9 mg/dL 8.4-10.2 EGFR (BEAKER) (test code = 1092) 49 mL/min/1.73 sq m ESTIMATED GFR IS NOT ACCURATE CREATININE CLEARANCE IN PREDICTING GLOMERULAR FILTRATION RATE. ESTIMATED GFR IS NOT APPLICABLE FOR DIALYSIS PATIENTS. Supervisor Pre Wave ID - SEDA [id number] 08:09:00* Test Item Value Reference Range Interpretation Comments MAGNESIUM (BEAKER) (test code = 627) 2.1 mg/dL 1.6-2.6 Supervisor Pre Wave ID - SEDA MPOCT-GLUCOSE [id number] 07:44:00* Test Item Value Reference Range Interpretation Comments POC-GLUCOSE METER (BEAKER) (test code = 1538) 88 mg/dL 70-110 : TESTED AT [address], [address]: Supervisor Pre Wave/Rail Specialist ID = [id number] for HERNAN PÉREZ B-TYPE NATRIURETIC FACTOR (BNP)2020-07-03 05:46:00* Test Item Value Reference Range Interpretation Comments B-TYPE NATRIURETIC PEPTIDE (BEAKER) (test code = 700) 868 pg/mL 0-100 H Supervisor Pre Wave ID - EDASIPOCT-GLUCOSE [id number] 21:35:00* Test Item Value Reference Range Interpretation Comments POC-GLUCOSE METER (BEAKER) (test code = 1538) 197 mg/dL 70-110 H : TESTED AT [place] [address] [facility], [address]: Supervisor Pre Wave/Rail Specialist ID = [id number] for Franci Null POCT-GLUCOSE [id number] 16:30:00* Test Item Value Reference Range Interpretation Comments POC-GLUCOSE METER (BEAKER) (test code = 1538) 185 mg/dL 70-110 H : TESTED AT [place] [address] [facility], [address]: Supervisor Pre Wave/Rail Specialist ID = [id number] for Gabriella Yusuf Insulin-like growth [id number] 14:03:00* Test Item Value Reference Range Interpretation Comments Igf-1(Somatomedin-C) (test code = 3705280) 99 ng/mL 34-245 Z-Score Male: (test code = 0237477) -0.1 -2.0- 2.0 SD This test was developed and its analytical performance characteristics havebeen determined by [employer] [facility].It has not been cleared or approved by FDA. This assay has been validatedpursuant to the CLIA regulations and is used for clinical purposes. Z-Score Female: (test code = 4841784) DNR MARCO (test code = MARCO) Performing Lab E[facility] [address] [place] [address] Alli Bee MD, PhD, [facility] [id number] 11:34:00* Test Item Value Reference Range Interpretation Comments POC-GLUCOSE METER (BEAKER) (test code = 1538) 153 mg/dL 70-110 H : TESTED AT [facility] [address] [facility], [address]: Supervisor Pre Wave/Rail Specialist ID = [id number] for [place], Gabriella Insulin, [id number] 09:17:00* Test Item Value Reference Range Interpretation Comments Insulin, Fasting (test code = 4486527) 11.5 <=19.6 uIU/mL Risk: Optimal <=19.6, Moderate NA, High >19.6 This insulin shows strong cross-reactivity for some insulin analogs (lispro,aspart, and glargine) and much lower cross- reactivity with others (detemir,glulisine). Adult cardiovascular event risk category cut points (optimal,moderate, high) are based on [employer] population data from 09/2011. MARCO (test code = MARCO) Performing Lab [facility] [address] [place] [address] Alli Bee MD, PhD, [facility] HospitalGrowth [id number] 08:31:00* Test Item Value Reference Range Interpretation Comments Growth Hormone (test code = 3007694) 0.2 ng/mL < OR = 7.1 Because of a pulsatile secretion pattern, random(unstimulated) growth hormone (GH) levels arefrequently undetectable in normal children andadults and are not reliable for diagnosing GHdeficiency. Regarding suppression tests, failureto suppress GH is diagnostic of acromegaly. Typical GH response in healthy subjects:Using the glucose tolerance (GH suppression) test,acromegaly would be ruled out if the patient's GHlevel is <1.0 ng/mL at any point in the timedsequence.[Kellen L, Damaris Key [facility], Carla S,et al. Acromegaly: an Endocrine Society ClinicalPractice Guideline. J Clin Endocrinol Metab 2014;99: 7208-0839]. Using GH stimulation testing, the followingresult at any point in the timed sequence makesGH deficiency unlikely: Adults (> or = 20 years): Insulin Hypoglycemia > or = 5.1 ng/mL Arginine/GHRH > or = 4.1 ng/mL Glucagon > or = 3.0 ng/mLChildren (<20 years): All Stimulation Tests > or = 10.0 ng/mL MARCO (test code = MARCO) Performing Lab [facility] [address] [place] [address] Alli Bee MD, PhD, GALI [facility] [id number] 08:05:00* Test Item Value Reference Range Interpretation Comments POC-GLUCOSE METER (BEAKER) (test code = 1538) 214 mg/dL 70-110 H : TESTED AT [facility] [address] [facility], [address]: Supervisor Pre Wave/Rail Specialist ID = [id number] for [place]usa, Gabriella [id number] 06:13:00* Test Item Value Reference Range Interpretation Comments MAGNESIUM (BEAKER) (test code = 627) 1.9 mg/dL 1.6-2.6 Specimen slightly hemolyzed Supervisor Pre Wave ID - SEDA MBASIC METABOLIC [id number] 06:00:00* Test Item Value Reference Range Interpretation Comments SODIUM (BEAKER) (test code = 381) 137 meq/L 136-145 POTASSIUM (BEAKER) (test code = 379) 4.1 meq/L 3.5-5.1 Specimen slightly hemolyzed CHLORIDE (BEAKER) (test code = 382) 91 meq/L 98-107 L CO2 (BEAKER) (test code = 355) 37 meq/L 22-29 H BLOOD UREA NITROGEN (BEAKER) (test code = 354) 47 mg/dL 7-21 H CREATININE (BEAKER) (test code = 358) 1.44 mg/dL 0.57-1.25 H Specimen slightly hemolyzed GLUCOSE RANDOM (BEAKER) (test code = 652) 189 mg/dL 70-105 H CALCIUM (BEAKER) (test code = 697) 8.9 mg/dL 8.4-10.2 EGFR (BEAKER) (test code = 1092) 48 mL/min/1.73 sq m ESTIMATED GFR IS NOT ACCURATE CREATININE CLEARANCE IN PREDICTING GLOMERULAR FILTRATION RATE. ESTIMATED GFR IS NOT APPLICABLE FOR DIALYSIS PATIENTS. Supervisor Pre Wave ID - SEDA MCALCIUM, [id number] 05:36:00* Test Item Value Reference Range Interpretation Comments CALCIUM IONIZED (BEAKER) (test code = 698) 1.17 mmol/L 1.12-1.27 PH, BLOOD (BEAKER) (test code = 1810) 7.31 POCT-GLUCOSE [id number] 20:05:00* Test Item Value Reference Range Interpretation Comments POC-GLUCOSE METER (BEAKER) (test code = 1538) 260 mg/dL 70-110 H : TESTED AT [address], [address]: Supervisor Pre Wave/Rail Specialist ID = [id number] for GERALDINE DUNHAM POCT-GLUCOSE [id number] 16:23:00* Test Item Value Reference Range Interpretation Comments POC-GLUCOSE METER (BEAKER) (test code = 1538) 188 mg/dL 70-110 H : TESTED AT [address], [address]: Supervisor Pre Wave/Rail Specialist ID = [id number] for Amanda Nieves POCT-GLUCOSE [id number] 11:14:00* Test Item Value Reference Range Interpretation Comments POC-GLUCOSE METER (BEAKER) (test code = 1538) 164 mg/dL 70-110 H : TESTED AT [address], [address]: Supervisor Pre Wave/Rail Specialist ID = [id number] for Ezequiel Amanda POCT-GLUCOSE [id number] 08:32:00* Test Item Value Reference Range Interpretation Comments POC-GLUCOSE METER (BEAKER) (test code = 1538) 185 mg/dL 70-110 H : TESTED AT [address], [address]: Supervisor Pre Wave/Rail Specialist ID = [id number] for CINDI TOBAR [id number] 07:34:00* Test Item Value Reference Range Interpretation Comments PHOSPHORUS (BEAKER) (test code = 604) 3.5 mg/dL 2.3-4.7 Supervisor Pre Wave ID - HENRIETTA [id number] 07:34:00* Test Item Value Reference Range Interpretation Comments MAGNESIUM (BEAKER) (test code = 627) 2.0 mg/dL 1.6-2.6 Supervisor Pre Wave ID - PIAYA LCOMPREHENSIVE METABOLIC [id number] 07:34:00* Test Item Value Reference Range Interpretation Comments TOTAL PROTEIN (BEAKER) (test code = 770) 5.7 gm/dL 6.0-8.3 L ALBUMIN (BEAKER) (test code = 1145) 3.4 g/dL 3.5-5.0 L ALKALINE PHOSPHATASE (BEAKER) (test code = 346) 91 U/L 40-150 BILIRUBIN TOTAL (BEAKER) (test code = 377) 0.6 mg/dL 0.2-1.2 SODIUM (BEAKER) (test code = 381) 138 meq/L 136-145 POTASSIUM (BEAKER) (test code = 379) 3.8 meq/L 3.5-5.1 CHLORIDE (BEAKER) (test code = 382) 93 meq/L 98-107 L CO2 (BEAKER) (test code = 355) 38 meq/L 22-29 H BLOOD UREA NITROGEN (BEAKER) (test code = 354) 52 mg/dL 7-21 H CREATININE (BEAKER) (test code = 358) 1.52 mg/dL 0.57-1.25 H GLUCOSE RANDOM (BEAKER) (test code = 652) 137 mg/dL 70-105 H CALCIUM (BEAKER) (test code = 697) 8.7 mg/dL 8.4-10.2 AST (SGOT) (BEAKER) (test code = 353) 21 U/L 5-34 ALT (SGPT) (BEAKER) (test code = 347) 42 U/L 6-55 EGFR (BEAKER) (test code = 1092) 45 mL/min/1.73 sq m ESTIMATED GFR IS NOT ACCURATE CREATININE CLEARANCE IN PREDICTING GLOMERULAR FILTRATION RATE. ESTIMATED GFR IS NOT APPLICABLE FOR DIALYSIS PATIENTS. Supervisor Pre Wave ID - PIAYA LBLOOD GAS, [id number] 06:38:00* Test Item Value Reference Range Interpretation Comments PH ARTERIAL (BEAKER) (test code = 383) 7.43 7.35-7.45 PCO2 ARTERIAL (BEAKER) (test code = 384) 58 mmHg 35-45 H PO2 ARTERIAL (BEAKER) (test code = 385) 135 mmHg 80-90 H O2 SATURATION ARTERIAL (BEAKER) (test code = 386) 98.7 % 96.0 -97.0 H HCO3 ARTERIAL (BEAKER) (test code = 388) 38 mmol/L 21-29 H BASE EXCESS ARTERIAL (BEAKER) (test code = 387) 11.4 mmol/L -2.0-3 .0 H PATIENT TEMPERATURE (BEAKER) (test code = 1818) 37.0 C FIO2 (BEAKER) (test code = 1819) 35.0 % CBC W/PLT COUNT & AUTO [id number] 05:58:00* Test Item Value Reference Range Interpretation Comments WHITE BLOOD CELL COUNT (BEAKER) (test code = 775) 6.5 K/ L 3.5- 10.5 RED BLOOD CELL COUNT (BEAKER) (test code = 761) 3.13 M/ L 4.63-6 .08 L HEMOGLOBIN (BEAKER) (test code = 410) 9.4 GM/DL 13.7-17.5 L HEMATOCRIT (BEAKER) (test code = 411) 32.5 % 40.1-51.0 L MEAN CORPUSCULAR VOLUME (BEAKER) (test code = 753) 103.8 fL 79. 0-92.2 H MEAN CORPUSCULAR HEMOGLOBIN (BEAKER) (test code = 751) 30.0 pg 25.7-32.2 MEAN CORPUSCULAR HEMOGLOBIN CONC (BEAKER) (test code = 752) 28.9 GM/DL 32.3-36.5 L RED CELL DISTRIBUTION WIDTH (BEAKER) (test code = 412) 19.3 % 11.6-14.4 H PLATELET COUNT (BEAKER) (test code = 756) 206 K/CU MM 150-450 MEAN PLATELET VOLUME (BEAKER) (test code = 754) 10.9 fL 9.4-12 .4 NUCLEATED RED BLOOD CELLS (BEAKER) (test code = 413) 2 /100 WBC 0 -0 H NEUTROPHILS RELATIVE PERCENT (BEAKER) (test code = 429) 74 % LYMPHOCYTES RELATIVE PERCENT (BEAKER) (test code = 430) 10 % MONOCYTES RELATIVE PERCENT (BEAKER) (test code = 431) 11 % EOSINOPHILS RELATIVE PERCENT (BEAKER) (test code = 432) 0 % BASOPHILS RELATIVE PERCENT (BEAKER) (test code = 437) 0 % NEUTROPHILS ABSOLUTE COUNT (BEAKER) (test code = 670) 4.80 K/ L 1.78-5.38 LYMPHOCYTES ABSOLUTE COUNT (BEAKER) (test code = 414) 0.67 K/ L 1.32-3.57 L MONOCYTES ABSOLUTE COUNT (BEAKER) (test code = 415) 0.72 K/ L 0. 30-0.82 EOSINOPHILS ABSOLUTE COUNT (BEAKER) (test code = 416) 0.02 K/ L 0.04-0.54 L BASOPHILS ABSOLUTE COUNT (BEAKER) (test code = 417) 0.01 K/ L 0. 01-0.08 IMMATURE GRANULOCYTES-RELATIVE PERCENT (BEAKER) (test code = 2801) 4 % 0-1 H BLOOD GAS, [id number] 05:47:00* Test Item Value Reference Range Interpretation Comments PH VENOUS (BEAKER) (test code = 701) 7.30 7.32-7.42 L PCO2 VENOUS (BEAKER) (test code = 755) 87 mmHg 41-51 HH PO2 VENOUS (BEAKER) (test code = 702) 27 mmHg 25-40 O2 SATURATION VENOUS (BEAKER) (test code = 703) 40.4 % 40.0-7 0.0 HCO3 VENOUS (BEAKER) (test code = 705) 42 mmol/L 21-29 HH BASE EXCESS VENOUS (BEAKER) (test code = 704) 12.6 mmol/L -2.0-3.0 H PATIENT TEMPERATURE (BEAKER) (test code = 1818) 37.0 C FIO2 (BEAKER) (test code = 1819) 40 % This is a corrected result. Previous result was 100.0 % on 07/01/2020 at 0520 CDT CALCIUM, [id number] 05:21:00* Test Item Value Reference Range Interpretation Comments CALCIUM IONIZED (BEAKER) (test code = 698) 1.24 mmol/L 1.12-1.27 PH, BLOOD (BEAKER) (test code = 1810) 7.30 POCT-GLUCOSE [id number] 22:15:00* Test Item Value Reference Range Interpretation Comments POC-GLUCOSE METER (BEAKER) (test code = 1538) 174 mg/dL 70-110 H : TESTED AT [facility] [address] [facility], [address]: Supervisor Pre Wave/Rail Specialist ID = [id number] for Adelita Heredia POCT-GLUCOSE [id number] 17:13:00* Test Item Value Reference Range Interpretation Comments POC-GLUCOSE METER (BEAKER) (test code = 1538) 220 mg/dL 70-110 H : TESTED AT [address], [address]: Supervisor Pre Wave/Rail Specialist ID = [id number] for LIZZETH MCKINNEY POCT-GLUCOSE [id number] 12:15:00* Test Item Value Reference Range Interpretation Comments POC-GLUCOSE METER (BEAKER) (test code = 1538) 149 mg/dL 70-110 H : TESTED AT [address], [address]: Supervisor Pre Wave/Rail Specialist ID = [id number] for CINDI TOBAR POCT-GLUCOSE [id number] 11:28:00* Test Item Value Reference Range Interpretation Comments POC-GLUCOSE METER (BEAKER) (test code = 1538) 43 mg/dL 70-110 L : TESTED AT [address], [address]: Supervisor Pre Wave/Rail Specialist ID = [id number] for LIZZETH MCKINNEY RAD, CHEST, 1 VIEW, NON [id number] 11:11:00Reason for exam:->edemaShould this be performed at the bedside?->YesFINAL REPORT EXAM: Chest one view COMPARISON: June 28, 2020 CLINICAL HISTORY: Edema FINDINGS: Right perihilar pulmonary opacity is again noted which may represent pneumonitis. Discoid opacities also seen in the left lower lung, this may represent scarring versus subsegmental atelectasis. There is no evidence of pleural effusion or pneumothorax. Mild increased interstitial pulmonary opacities is noted which may represent edema. The regional osseous structures are unchanged. Signed: Viry Mitchell MDReport Verified Date/Time: 06/30/2020 11:11:28 Reading Location: [facility] Radiology Reading Room -GLUCOSE METER 2020-06-30 07:37:00* Test Item Value Reference Range Interpretation Comments POC-GLUCOSE METER (BEAKER) (test code = 1538) 175 mg/dL 70-110 H : TESTED AT [address] [place], [address]: Supervisor Pre Wave/Rail Specialist ID = [id number] for LIZZETH MCKINNEY [id number] 04:43:00* Test Item Value Reference Range Interpretation Comments MAGNESIUM (BEAKER) (test code = 627) 2.0 mg/dL 1.6-2.6 Specimen slightly hemolyzed Supervisor Pre Wave ID - [id number] 04:43:00* Test Item Value Reference Range Interpretation Comments PHOSPHORUS (BEAKER) (test code = 604) 3.9 mg/dL 2.3-4.7 Specimen slightly hemolyzed Supervisor Pre Wave ID - EDASIBASIC METABOLIC [id number] 04:43:00* Test Item Value Reference Range Interpretation Comments SODIUM (BEAKER) (test code = 381) 140 meq/L 136-145 POTASSIUM (BEAKER) (test code = 379) 4.1 meq/L 3.5-5.1 Specimen slightly hemolyzed CHLORIDE (BEAKER) (test code = 382) 94 meq/L 98-107 L CO2 (BEAKER) (test code = 355) 34 meq/L 22-29 H BLOOD UREA NITROGEN (BEAKER) (test code = 354) 56 mg/dL 7-21 H CREATININE (BEAKER) (test code = 358) 1.83 mg/dL 0.57-1.25 H Specimen slightly hemolyzed GLUCOSE RANDOM (BEAKER) (test code = 652) 197 mg/dL 70-105 H CALCIUM (BEAKER) (test code = 697) 9.1 mg/dL 8.4-10.2 EGFR (BEAKER) (test code = 1092) 36 mL/min/1.73 sq m ESTIMATED GFR IS NOT ACCURATE CREATININE CLEARANCE IN PREDICTING GLOMERULAR FILTRATION RATE. ESTIMATED GFR IS NOT APPLICABLE FOR DIALYSIS PATIENTS. Supervisor Pre Wave ID - EDASIB-TYPE NATRIURETIC FACTOR (BNP)2020-06-30 04:43:00* Test Item Value Reference Range Interpretation Comments B-TYPE NATRIURETIC PEPTIDE (BEAKER) (test code = 700) 1188 pg/mL 0-100 H Supervisor Pre Wave ID - EDASICALCIUM, [id number] 04:31:00* Test Item Value Reference Range Interpretation Comments CALCIUM IONIZED (BEAKER) (test code = 698) 1.17 mmol/L 1.12-1.27 PH, BLOOD (BEAKER) (test code = 1810) 7.26 CBC W/PLT COUNT & AUTO [id number] 04:26:00* Test Item Value Reference Range Interpretation Comments WHITE BLOOD CELL COUNT (BEAKER) (test code = 775) 9.4 K/ L 3.5- 10.5 RED BLOOD CELL COUNT (BEAKER) (test code = 761) 3.38 M/ L 4.63-6 .08 L HEMOGLOBIN (BEAKER) (test code = 410) 10.1 GM/DL 13.7-17.5 L HEMATOCRIT (BEAKER) (test code = 411) 35.2 % 40.1-51.0 L MEAN CORPUSCULAR VOLUME (BEAKER) (test code = 753) 104.1 fL 79. 0-92.2 H MEAN CORPUSCULAR HEMOGLOBIN (BEAKER) (test code = 751) 29.9 pg 25.7-32.2 MEAN CORPUSCULAR HEMOGLOBIN CONC (BEAKER) (test code = 752) 28.7 GM/DL 32.3-36.5 L RED CELL DISTRIBUTION WIDTH (BEAKER) (test code = 412) 19.7 % 11.6-14.4 H PLATELET COUNT (BEAKER) (test code = 756) 276 K/CU MM 150-450 MEAN PLATELET VOLUME (BEAKER) (test code = 754) 11.0 fL 9.4-12 .4 NUCLEATED RED BLOOD CELLS (BEAKER) (test code = 413) 1 /100 WBC 0 -0 H NEUTROPHILS RELATIVE PERCENT (BEAKER) (test code = 429) 82 % LYMPHOCYTES RELATIVE PERCENT (BEAKER) (test code = 430) 8 % MONOCYTES RELATIVE PERCENT (BEAKER) (test code = 431) 6 % EOSINOPHILS RELATIVE PERCENT (BEAKER) (test code = 432) 0 % BASOPHILS RELATIVE PERCENT (BEAKER) (test code = 437) 0 % NEUTROPHILS ABSOLUTE COUNT (BEAKER) (test code = 670) 7.74 K/ L 1.78-5.38 H LYMPHOCYTES ABSOLUTE COUNT (BEAKER) (test code = 414) 0.72 K/ L 1.32-3.57 L MONOCYTES ABSOLUTE COUNT (BEAKER) (test code = 415) 0.55 K/ L 0. 30-0.82 EOSINOPHILS ABSOLUTE COUNT (BEAKER) (test code = 416) 0.01 K/ L 0.04-0.54 L BASOPHILS ABSOLUTE COUNT (BEAKER) (test code = 417) 0.02 K/ L 0. 01-0.08 IMMATURE GRANULOCYTES-RELATIVE PERCENT (BEAKER) (test code = 2801) 4 % 0-1 H SARS-COV2/RT-PCR ([facility])2020-06-30 00:14:00* Test Item Value Reference Range Interpretation Comments SARS-COV2/RT-PCR (test code = 1159495) Negative N ot Detected, Negative, See external report for linked test SARS-COV-2 PERFORMING LAB (test code = 9560978) [facility] Negative result for this test determines that SARS-CoV-2 RNA was not present in the specimen above the Limit of Detection (LOD). However, Negative results do n ot preclude SARS-CoV-2 infection and should not be used as the sole basis for tr eatment or patient management decisions. Negative results must be combined with clinical observations, patient history, and epidemiological information. A false negative result may occur if a specimen is improperly collected, transported or handled. A false negative result should be considered if patient's recent expo sures or clinical presentation indicate that COVID-19 (SARS-CoV-2) is likely and diagnostic tests for other causes of illness are negative. Re-testing should be considered in cases of suspected false negatives.The limit of detection for this assay is 800 copies/mL.This SARS CoV-2 test is a real-time RT-PCR test intended for the qualitative detection of nucleic acid from SARS-CoV-2 in a nasopharyn geal swab specimen collected from individuals suspected of COVID-19 by their [facility] provider.This test has not been Food and Drug Administration (FDA) clear ed or approved. This is a modified version of an approved Emergency Use Authori zation (EUA) and is in the process of review by the FDA. Once authorized by [facility] FDA, the issued EUA will be effective until the declaration that circumstances exist justifying the authorization of the emergency use of in vitro diagnostic tests for detection and/or diagnosis of COVID-19 is terminated under Section 564 (b)(2) of the Act or the EUA is revoked under Section 564(g) of the Act.Fact She et for Healthcare Providers:https://www.quidel.com/sites/default/files/product/d ocuments/Zkux_Sdism_WA_Ynznnfliu_Jsnl_PDAT-IkR-5.pdfFact Sheet for Healthcare Alicia hernandez:https://www.Modumetal/sites/default/files/product/documents/Fact_Sheet_P owpxybk_Plya_KSOD-RtN-8.pdfPerforming Laboratory:[facility] [address].[place], [place] [address]JLBN-IDNKGUA [id number] 21:12:00* Test Item Value Reference Range Interpretation Comments POC-GLUCOSE METER (BEAKER) (test code = 1538) 198 mg/dL 70-110 H : TESTED AT [facility] [address] [facility], [address]: Supervisor Pre Wave/Rail Specialist ID = [id number] for JAKE PEREIRA PUL PERF IMAGING, PARTIC, [id number] 16:27:00Unlisted Reason for Exam - Click Yes and Enter Reason Below->NoFINAL REPORT PROCEDURE: V/Q LUNG SCAN CPT CODE: [id number] INDICATION: Acute on chronic oxygen hypercapnic respiratory [...] IMPRESSION: 1. Low probability of acute pulmonary embolization. Matched ventilation/perfusion defects.2. Marked parenchymal lung disease. Signed: Renaldo Graves Verified Date/Time: 06/29/2020 16:27:43 Reading Location: [address] [place] [address] Reading Room lung scan (V/Q)2020-06-29 16:27:00Interface, External Ris In - 06/29/2020 4:29 PM CDTFINAL REPORT PROCEDURE: V/Q LUNG SCAN CPT CODE: 84559 INDICATION: Acute on chronic oxygen hypercapnic respiratory failure. PE suspected. PROTOCOL: 2.1 mCi of Tc-99m MAA was then injected intravenously, and static perfusion images were obtained in multiple projections. 19.3 mCi of Xe-133 gas was administered by inhalation. Rebreathing/washout images were obtained in the anterior and the posterior projections.. FINDINGS: Ventilation: Initial tracer di stribution is segmentally decreased in the mid right lung. Washout proceeds norm ally. Perfusion: Tracer distribution is decreased in the mid right arti g extending posterosuperiorly and heterogeneous throughout the remainder of the lungs. There is decreased intensity in the left major fissure. IMPRESSION: 1. Low probability of acute pulmonary embolization. Matched ventilation/perfusio n defects.2. Marked parenchymal lung disease. Signed: Renaldo Graves MDReport Garry ified Date/Time: 06/29/2020 16:27:43 Reading Location: [address] ed Reading Room 20 04:27 PM [facility] [id number] 15:18:00* Test Item Value Reference Range Interpretation Comments Hemoglobin A1C (test code = 4548-4) 5.9 % 4.3-6.1 Lab Interpretation (test code = 22605-4) Normal [facility] [id number] 15:18:00* Test Item Value Reference Range Interpretation Comments HEMOGLOBIN A1C (BEAKER) (test code = 368) 5.9 % 4.3-6.1 BLOOD GAS, [id number] 14:32:00* Test Item Value Reference Range Interpretation Comments PH ARTERIAL (BEAKER) (test code = 383) 7.38 7.35-7.45 PCO2 ARTERIAL (BEAKER) (test code = 384) 52 mmHg 35-45 H PO2 ARTERIAL (BEAKER) (test code = 385) 80 mmHg 80-90 O2 SATURATION ARTERIAL (BEAKER) (test code = 386) 95.8 % 96.0 -97.0 L HCO3 ARTERIAL (BEAKER) (test code = 388) 31 mmol/L 21-29 H BASE EXCESS ARTERIAL (BEAKER) (test code = 387) 4.1 mmol/L -2.0-3 .0 H PATIENT TEMPERATURE (BEAKER) (test code = 1818) 36.3 C FIO2 (BEAKER) (test code = 1819) 50.0 % POCT-GLUCOSE [id number] 11:18:00* Test Item Value Reference Range Interpretation Comments POC-GLUCOSE METER (BEAKER) (test code = 1538) 246 mg/dL 70-110 H : TESTED AT [address], [address]: Supervisor Pre Wave/Rail Specialist ID = [id number] for FRANCI SALES [id number] 08:53:00* Test Item Value Reference Range Interpretation Comments Cortisol, Total (test code = 2755) 4.4 ug/dL 3.7-19.4 MARCO (test code = MARCO) Supervisor Pre Wave ID - LA Lab Interpretation (test code = 94780-0) [facility]2020-09-03 08:53:00* Test Item Value Reference Range Interpretation Comments CORTISOL, TOTAL (BEAKER) (test code = 2755) 4.4 ug/dL 3.7-19.4 Supervisor Pre Wave ID - LAHepatic function [id number] 08:36:00* Test Item Value Reference Range Interpretation Comments Protein, Total (test code = 2885-2) 5.8 6.0- 8.3 gm/dL L Albumin (test code = 91711-2) 3.4 g/dL 3.5-5 L Total Bilirubin (test code = 1974-2) 0.6 mg/dL 0.2-1.2 Bilirubin, Direct (test code = 1967-7) 0.3 mg/dL 0.1-0.5 Alkaline Phosphatase (test code = 6768-6) 95 U/L 40-150 AST (test code = 1920-8) 24 U/L 5-34 ALT (test code = 1742-6) 52 U/L 6-55 MARCO (test code = MARCO) Supervisor Pre Wave ID - LASend if serum glucose <55 Lab Interpretation (test code = 06877-1) Abnormal [facility] FUNCTION [id number] 08:36:00* Test Item Value Reference Range Interpretation Comments TOTAL PROTEIN (BEAKER) (test code = 770) 5.8 gm/dL 6.0-8.3 L ALBUMIN (BEAKER) (test code = 1145) 3.4 g/dL 3.5-5.0 L BILIRUBIN TOTAL (BEAKER) (test code = 377) 0.6 mg/dL 0.2-1.2 BILIRUBIN DIRECT (BEAKER) (test code = 706) 0.3 mg/dL 0.1-0.5 ALKALINE PHOSPHATASE (BEAKER) (test code = 346) 95 U/L 40-150 AST (SGOT) (BEAKER) (test code = 353) 24 U/L 5-34 ALT (SGPT) (BEAKER) (test code = 347) 52 U/L 6-55 Supervisor Pre Wave ID - LASend if serum glucose <55BASIC METABOLIC [id number] 08:36:00* Test Item Value Reference Range Interpretation Comments SODIUM (BEAKER) (test code = 381) 137 meq/L 136-145 POTASSIUM (BEAKER) (test code = 379) 4.3 meq/L 3.5-5.1 CHLORIDE (BEAKER) (test code = 382) 95 meq/L 98-107 L CO2 (BEAKER) (test code = 355) 36 meq/L 22-29 H BLOOD UREA NITROGEN (BEAKER) (test code = 354) 57 mg/dL 7-21 H CREATININE (BEAKER) (test code = 358) 1.77 mg/dL 0.57-1.25 H GLUCOSE RANDOM (BEAKER) (test code = 652) 223 mg/dL 70-105 H CALCIUM (BEAKER) (test code = 697) 8.9 mg/dL 8.4-10.2 EGFR (BEAKER) (test code = 1092) 38 mL/min/1.73 sq m ESTIMATED GFR IS NOT ACCURATE CREATININE CLEARANCE IN PREDICTING GLOMERULAR FILTRATION RATE. ESTIMATED GFR IS NOT APPLICABLE FOR DIALYSIS PATIENTS. Supervisor Pre Wave ID - LASend if serum glucose <55Ketone, [id number] 08:31:00* Test Item Value Reference Range Interpretation Comments Ketones, Blood (test code = 1103) 0.2 mmol/L <0.4 Lab Interpretation (test code = 20330-9) [facility], [id number] 08:31:00* Test Item Value Reference Range Interpretation Comments Lactate, Venous (test code = 2872) 2.42 mmol/L 0.5-2.2 H MARCO (test code = MARCO) Supervisor Pre Wave ID - HENRIETTA L Lab Interpretation (test code = 15973-5) Abnormal [facility]KETONE, [id number] 08:31:00* Test Item Value Reference Range Interpretation Comments KETONES, BLOOD (BEAKER) (test code = 1103) 0.2 mmol/L <0.4 LACTIC ACID, [id number] 08:31:00* Test Item Value Reference Range Interpretation Comments LACTATE BLOOD VENOUS (2) (BEAKER) (test code = 2872) 2.42 mmol/L 0 .50-2.20 H Supervisor Pre Wave ID - HENRIETTA LPOCT-GLUCOSE [id number] 08:05:00* Test Item Value Reference Range Interpretation Comments POC-GLUCOSE METER (BEAKER) (test code = 1538) 45 mg/dL 70-110 L : TESTED AT [place] [address] [facility], [address]: Supervisor Pre Wave/Rail Specialist ID = [id number] for JUAN CARLOS BOLDEN POCT-GLUCOSE [id number] 07:41:00* Test Item Value Reference Range Interpretation Comments POC-GLUCOSE METER (BEAKER) (test code = 1538) 22 mg/dL 70-110 LL : Will Repeat Test: Notified RN/MD: TESTED AT [address], [address]: Supervisor Pre Wave/Rail Specialist ID = [id number] for FRANCI SALES [id number] 07:37:00* Test Item Value Reference Range Interpretation Comments MAGNESIUM (BEAKER) (test code = 627) 2.0 mg/dL 1.6-2.6 Supervisor Pre Wave ID - LABASIC METABOLIC [id number] 07:37:00* Test Item Value Reference Range Interpretation Comments SODIUM (BEAKER) (test code = 381) 141 meq/L 136-145 POTASSIUM (BEAKER) (test code = 379) 4.5 meq/L 3.5-5.1 CHLORIDE (BEAKER) (test code = 382) 97 meq/L 98-107 L CO2 (BEAKER) (test code = 355) 38 meq/L 22-29 H BLOOD UREA NITROGEN (BEAKER) (test code = 354) 61 mg/dL 7-21 H CREATININE (BEAKER) (test code = 358) 1.75 mg/dL 0.57-1.25 H GLUCOSE RANDOM (BEAKER) (test code = 652) 148 mg/dL 70-105 H CALCIUM (BEAKER) (test code = 697) 9.2 mg/dL 8.4-10.2 EGFR (BEAKER) (test code = 1092) 38 mL/min/1.73 sq m ESTIMATED GFR IS NOT ACCURATE CREATININE CLEARANCE IN PREDICTING GLOMERULAR FILTRATION RATE. ESTIMATED GFR IS NOT APPLICABLE FOR DIALYSIS PATIENTS. Supervisor Pre Wave ID - LAPOCT-GLUCOSE [id number] 21:22:00* Test Item Value Reference Range Interpretation Comments POC-GLUCOSE METER (BEAKER) (test code = 1538) 119 mg/dL 70-110 H : TESTED AT [address], [address]: Supervisor Pre Wave/Rail Specialist ID = [id number] for BRENNA MIMS Blood Culture - Routine (Left Venipuncture)2020-06-28 16:00:00* Test Item Value Reference Range Interpretation Comments Result (test code = 6463-4) No growth in 5 days [facility]BLOOD [id number] 16:00:00* Test Item Value Reference Range Interpretation Comments CULTURE (BEAKER) (test code = 1095) No growth in 5 days POCT-GLUCOSE [id number] 15:55:00* Test Item Value Reference Range Interpretation Comments POC-GLUCOSE METER (BEAKER) (test code = 1538) 165 mg/dL 70-110 H : TESTED AT [address], [address]: Supervisor Pre Wave/Rail Specialist ID = [id number] for REYNA-BATISTA LUC POCT-GLUCOSE [id number] 11:53:00* Test Item Value Reference Range Interpretation Comments POC-GLUCOSE METER (BEAKER) (test code = 1538) 115 mg/dL 70-110 H : TESTED AT [address], [address]: Supervisor Pre Wave/Rail Specialist ID = [id number] for REYNA-BATISTA, LUC POCT-GLUCOSE [id number] 08:23:00* Test Item Value Reference Range Interpretation Comments POC-GLUCOSE METER (BEAKER) (test code = 1538) 160 mg/dL 70-110 H : TESTED AT [facility] [address] [facility], [address]: Supervisor Pre Wave/Rail Specialist ID = [id number] for LUC FRIEND POCT-GLUCOSE [id number] 07:42:00* Test Item Value Reference Range Interpretation Comments POC-GLUCOSE METER (BEAKER) (test code = 1538) 82 mg/dL 70-110 : TESTED AT [place] [address] [facility], [address]: Supervisor Pre Wave/Rail Specialist ID = [id number] for Jose L Hill POCT-GLUCOSE [id number] 06:35:00* Test Item Value Reference Range Interpretation Comments POC-GLUCOSE METER (BEAKER) (test code = 1538) 56 mg/dL 70-110 L : TESTED AT [place] [address] [facility], [address]: Supervisor Pre Wave/Rail Specialist ID = [id number] for BRENNA MIMS [id number] 06:01:00* Test Item Value Reference Range Interpretation Comments PHOSPHORUS (BEAKER) (test code = 604) 3.9 mg/dL 2.3-4.7 Supervisor Pre Wave ID - NAUN [id number] 06:01:00* Test Item Value Reference Range Interpretation Comments MAGNESIUM (BEAKER) (test code = 627) 2.0 mg/dL 1.6-2.6 Supervisor Pre Wave ID - NAUN WCOMPREHENSIVE METABOLIC [id number] 06:01:00* Test Item Value Reference Range Interpretation Comments TOTAL PROTEIN (BEAKER) (test code = 770) 6.0 gm/dL 6.0-8.3 ALBUMIN (BEAKER) (test code = 1145) 3.6 g/dL 3.5-5.0 ALKALINE PHOSPHATASE (BEAKER) (test code = 346) 104 U/L 40-150 BILIRUBIN TOTAL (BEAKER) (test code = 377) 0.7 mg/dL 0.2-1.2 SODIUM (BEAKER) (test code = 381) 140 meq/L 136-145 POTASSIUM (BEAKER) (test code = 379) 3.6 meq/L 3.5-5.1 CHLORIDE (BEAKER) (test code = 382) 97 meq/L 98-107 L CO2 (BEAKER) (test code = 355) 35 meq/L 22-29 H BLOOD UREA NITROGEN (BEAKER) (test code = 354) 63 mg/dL 7-21 H CREATININE (BEAKER) (test code = 358) 1.85 mg/dL 0.57-1.25 H GLUCOSE RANDOM (BEAKER) (test code = 652) 69 mg/dL 70-105 L CALCIUM (BEAKER) (test code = 697) 9.2 mg/dL 8.4-10.2 AST (SGOT) (BEAKER) (test code = 353) 29 U/L 5-34 ALT (SGPT) (BEAKER) (test code = 347) 56 U/L 6-55 H EGFR (BEAKER) (test code = 1092) 36 mL/min/1.73 sq m ESTIMATED GFR IS NOT ACCURATE CREATININE CLEARANCE IN PREDICTING GLOMERULAR FILTRATION RATE. ESTIMATED GFR IS NOT APPLICABLE FOR DIALYSIS PATIENTS. Supervisor Pre Wave ID - NAUN WBASIC METABOLIC [id number] 06:01:00* Test Item Value Reference Range Interpretation Comments SODIUM (BEAKER) (test code = 381) 140 meq/L 136-145 POTASSIUM (BEAKER) (test code = 379) 3.6 meq/L 3.5-5.1 CHLORIDE (BEAKER) (test code = 382) 97 meq/L 98-107 L CO2 (BEAKER) (test code = 355) 35 meq/L 22-29 H BLOOD UREA NITROGEN (BEAKER) (test code = 354) 63 mg/dL 7-21 H CREATININE (BEAKER) (test code = 358) 1.85 mg/dL 0.57-1.25 H GLUCOSE RANDOM (BEAKER) (test code = 652) 69 mg/dL 70-105 L CALCIUM (BEAKER) (test code = 697) 9.2 mg/dL 8.4-10.2 EGFR (BEAKER) (test code = 1092) 36 mL/min/1.73 sq m ESTIMATED GFR IS NOT ACCURATE CREATININE CLEARANCE IN PREDICTING GLOMERULAR FILTRATION RATE. ESTIMATED GFR IS NOT APPLICABLE FOR DIALYSIS PATIENTS. B-TYPE NATRIURETIC FACTOR (BNP)2020-06-28 06:01:00* Test Item Value Reference Range Interpretation Comments B-TYPE NATRIURETIC PEPTIDE (BEAKER) (test code = 700) 952 pg/mL 0-100 H Supervisor Pre Wave ID - EDASICBC W/PLT COUNT & AUTO [id number] 05:35:00* Test Item Value Reference Range Interpretation Comments WHITE BLOOD CELL COUNT (BEAKER) (test code = 775) 5.6 K/ L 3.5- 10.5 RED BLOOD CELL COUNT (BEAKER) (test code = 761) 3.03 M/ L 4.63-6 .08 L HEMOGLOBIN (BEAKER) (test code = 410) 9.3 GM/DL 13.7-17.5 L HEMATOCRIT (BEAKER) (test code = 411) 31.5 % 40.1-51.0 L MEAN CORPUSCULAR VOLUME (BEAKER) (test code = 753) 104.0 fL 79. 0-92.2 H MEAN CORPUSCULAR HEMOGLOBIN (BEAKER) (test code = 751) 30.7 pg 25.7-32.2 MEAN CORPUSCULAR HEMOGLOBIN CONC (BEAKER) (test code = 752) 29.5 GM/DL 32.3-36.5 L RED CELL DISTRIBUTION WIDTH (BEAKER) (test code = 412) 19.6 % 11.6-14.4 H PLATELET COUNT (BEAKER) (test code = 756) 191 K/CU MM 150-450 MEAN PLATELET VOLUME (BEAKER) (test code = 754) 10.4 fL 9.4-12 .4 NUCLEATED RED BLOOD CELLS (BEAKER) (test code = 413) 2 /100 WBC 0 -0 H NEUTROPHILS RELATIVE PERCENT (BEAKER) (test code = 429) 79 % LYMPHOCYTES RELATIVE PERCENT (BEAKER) (test code = 430) 9 % MONOCYTES RELATIVE PERCENT (BEAKER) (test code = 431) 7 % EOSINOPHILS RELATIVE PERCENT (BEAKER) (test code = 432) 0 % BASOPHILS RELATIVE PERCENT (BEAKER) (test code = 437) 0 % NEUTROPHILS ABSOLUTE COUNT (BEAKER) (test code = 670) 4.43 K/ L 1.78-5.38 LYMPHOCYTES ABSOLUTE COUNT (BEAKER) (test code = 414) 0.51 K/ L 1.32-3.57 L MONOCYTES ABSOLUTE COUNT (BEAKER) (test code = 415) 0.42 K/ L 0. 30-0.82 EOSINOPHILS ABSOLUTE COUNT (BEAKER) (test code = 416) 0.01 K/ L 0.04-0.54 L BASOPHILS ABSOLUTE COUNT (BEAKER) (test code = 417) 0.02 K/ L 0. 01-0.08 IMMATURE GRANULOCYTES-RELATIVE PERCENT (BEAKER) (test code = 2801) 4 % 0-1 H RAD, CHEST, 1 VIEW, NON [id number] 05:34:00Reason for exam:->edemaShould this be performed at the bedside?->YesFINAL REPORT Chest one view. Clinical history: edema Comparison: Chest radiograph 06/21/2020. Technique: A single frontal view of the chest was obtained. Findings: The cardiomediastinal contours are stable. There are bilateral airspace opacities (new on the right) compatible with pneumonia. There is no the edema, pleural effusion or pneumothorax. Signed: Surekha Irving Verified Date/Time: 06/28/2020 05:34:59 IUM, [id number] 05:26:00* Test Item Value Reference Range Interpretation Comments CALCIUM IONIZED (BEAKER) (test code = 698) 1.17 mmol/L 1.12-1.27 PH, BLOOD (BEAKER) (test code = 1810) 7.27 POCT-GLUCOSE [id number] 04:19:00* Test Item Value Reference Range Interpretation Comments POC-GLUCOSE METER (BEAKER) (test code = 1538) 74 mg/dL 70-110 : TESTED AT [address], [address]: Supervisor Pre Wave/Rail Specialist ID = [id number] for BRENNA MIMS POCT-GLUCOSE [id number] 23:16:00* Test Item Value Reference Range Interpretation Comments POC-GLUCOSE METER (BEAKER) (test code = 1538) 77 mg/dL 70-110 : TESTED AT [address], [address]: Supervisor Pre Wave/Rail Specialist ID = [id number] for CLARISSA MIMSO POCT-GLUCOSE [id number] 16:42:00* Test Item Value Reference Range Interpretation Comments POC-GLUCOSE METER (BEAKER) (test code = 1538) 68 mg/dL 70-110 L : Will Repeat Test: Notified RN/MD: TESTED AT [address], [address]: Supervisor Pre Wave/Rail Specialist ID = [id number] for HERNAN PÉREZ POCT-GLUCOSE [id number] 11:52:00* Test Item Value Reference Range Interpretation Comments POC-GLUCOSE METER (BEAKER) (test code = 1538) 69 mg/dL 70-110 L : Notified RN/MD: Will Repeat Test: TESTED AT [address], [address]: Supervisor Pre Wave/Rail Specialist ID = [id number] for HERNAN PÉREZ POCT-GLUCOSE [id number] 10:36:00* Test Item Value Reference Range Interpretation Comments POC-GLUCOSE METER (BEAKER) (test code = 1538) 88 mg/dL 70-110 : TESTED AT [address], [address]: Supervisor Pre Wave/Rail Specialist ID = [id number] for DOM ESTRADA POCT-GLUCOSE [id number] 08:35:00* Test Item Value Reference Range Interpretation Comments POC-GLUCOSE METER (BEAKER) (test code = 1538) 58 mg/dL 70-110 L : TESTED AT [address], [address]: Supervisor Pre Wave/Rail Specialist ID = [id number] for HERNAN PÉREZ POCT-GLUCOSE [id number] 08:32:00* Test Item Value Reference Range Interpretation Comments POC-GLUCOSE METER (BEAKER) (test code = 1538) 64 mg/dL 70-110 L : TESTED AT [address], [address]: Supervisor Pre Wave/Rail Specialist ID = [id number] for HERNAN PÉREZ POCT-GLUCOSE [id number] 07:16:00* Test Item Value Reference Range Interpretation Comments POC-GLUCOSE METER (BEAKER) (test code = 1538) 63 mg/dL 70-110 L : Will Repeat Test: Notified RN/MD: TESTED AT [address], [address]: Supervisor Pre Wave/Rail Specialist ID = [id number] for HERNAN PÉREZ CBC W/PLT COUNT & AUTO [id number] 06:40:00* Test Item Value Reference Range Interpretation Comments WHITE BLOOD CELL COUNT (BEAKER) (test code = 775) 5.5 K/ L 3.5- 10.5 RED BLOOD CELL COUNT (BEAKER) (test code = 761) 2.85 M/ L 4.63-6 .08 L HEMOGLOBIN (BEAKER) (test code = 410) 8.5 GM/DL 13.7-17.5 L HEMATOCRIT (BEAKER) (test code = 411) 28.9 % 40.1-51.0 L MEAN CORPUSCULAR VOLUME (BEAKER) (test code = 753) 101.4 fL 79. 0-92.2 H MEAN CORPUSCULAR HEMOGLOBIN (BEAKER) (test code = 751) 29.8 pg 25.7-32.2 MEAN CORPUSCULAR HEMOGLOBIN CONC (BEAKER) (test code = 752) 29.4 GM/DL 32.3-36.5 L RED CELL DISTRIBUTION WIDTH (BEAKER) (test code = 412) 19.1 % 11.6-14.4 H PLATELET COUNT (BEAKER) (test code = 756) 186 K/CU MM 150-450 MEAN PLATELET VOLUME (BEAKER) (test code = 754) 10.5 fL 9.4-12 .4 NUCLEATED RED BLOOD CELLS (BEAKER) (test code = 413) 2 /100 WBC 0 -0 H NEUTROPHILS RELATIVE PERCENT (BEAKER) (test code = 429) 82 % LYMPHOCYTES RELATIVE PERCENT (BEAKER) (test code = 430) 8 % MONOCYTES RELATIVE PERCENT (BEAKER) (test code = 431) 7 % EOSINOPHILS RELATIVE PERCENT (BEAKER) (test code = 432) 0 % BASOPHILS RELATIVE PERCENT (BEAKER) (test code = 437) 0 % NEUTROPHILS ABSOLUTE COUNT (BEAKER) (test code = 670) 4.54 K/ L 1.78-5.38 LYMPHOCYTES ABSOLUTE COUNT (BEAKER) (test code = 414) 0.46 K/ L 1.32-3.57 L MONOCYTES ABSOLUTE COUNT (BEAKER) (test code = 415) 0.36 K/ L 0. 30-0.82 EOSINOPHILS ABSOLUTE COUNT (BEAKER) (test code = 416) 0.00 K/ L 0.04-0.54 L BASOPHILS ABSOLUTE COUNT (BEAKER) (test code = 417) 0.01 K/ L 0. 01-0.08 IMMATURE GRANULOCYTES-RELATIVE PERCENT (BEAKER) (test code = 2801) 3 % 0-1 H [id number] 06:25:00* Test Item Value Reference Range Interpretation Comments PHOSPHORUS (BEAKER) (test code = 604) 4.0 mg/dL 2.3-4.7 Supervisor Pre Wave ID - [id number] 06:25:00* Test Item Value Reference Range Interpretation Comments MAGNESIUM (BEAKER) (test code = 627) 2.0 mg/dL 1.6-2.6 Supervisor Pre Wave ID - EDASIBASIC METABOLIC [id number] 06:25:00* Test Item Value Reference Range Interpretation Comments SODIUM (BEAKER) (test code = 381) 140 meq/L 136-145 POTASSIUM (BEAKER) (test code = 379) 3.8 meq/L 3.5-5.1 CHLORIDE (BEAKER) (test code = 382) 100 meq/L 98-107 CO2 (BEAKER) (test code = 355) 30 meq/L 22-29 H BLOOD UREA NITROGEN (BEAKER) (test code = 354) 65 mg/dL 7-21 H CREATININE (BEAKER) (test code = 358) 1.80 mg/dL 0.57-1.25 H GLUCOSE RANDOM (BEAKER) (test code = 652) 81 mg/dL 70-105 CALCIUM (BEAKER) (test code = 697) 9.1 mg/dL 8.4-10.2 EGFR (BEAKER) (test code = 1092) 37 mL/min/1.73 sq m ESTIMATED GFR IS NOT ACCURATE CREATININE CLEARANCE IN PREDICTING GLOMERULAR FILTRATION RATE. ESTIMATED GFR IS NOT APPLICABLE FOR DIALYSIS PATIENTS. Supervisor Pre Wave ID - EDASICALCIUM, [id number] 05:35:00* Test Item Value Reference Range Interpretation Comments CALCIUM IONIZED (BEAKER) (test code = 698) 1.18 mmol/L 1.12-1.27 PH, BLOOD (BEAKER) (test code = 1810) 7.33 POCT-GLUCOSE [id number] 21:09:00* Test Item Value Reference Range Interpretation Comments POC-GLUCOSE METER (BEAKER) (test code = 1538) 149 mg/dL 70-110 H : TESTED AT [address], [address]: Supervisor Pre Wave/Rail Specialist ID = [id number] for Franci Null BLOOD [id number] 18:00:00* Test Item Value Reference Range Interpretation Comments CULTURE (BEAKER) (test code = 1095) No growth in 5 days POCT-GLUCOSE [id number] 16:52:00* Test Item Value Reference Range Interpretation Comments POC-GLUCOSE METER (BEAKER) (test code = 1538) 92 mg/dL 70-110 : TESTED AT [address], [address]: Supervisor Pre Wave/Rail Specialist ID = [id number] for JAKUB CHAVES POCT-GLUCOSE [id number] 10:57:00* Test Item Value Reference Range Interpretation Comments POC-GLUCOSE METER (BEAKER) (test code = 1538) 71 mg/dL 70-110 : TESTED AT [address], [address]: Supervisor Pre Wave/Rail Specialist ID = [id number] for JAKUB CHAVES POCT-GLUCOSE [id number] 09:49:00* Test Item Value Reference Range Interpretation Comments POC-GLUCOSE METER (BEAKER) (test code = 1538) 43 mg/dL 70-110 L : TESTED AT [address], [address]: Supervisor Pre Wave/Rail Specialist ID = [id number] for EDIS EMERSON POCT-GLUCOSE [id number] 09:08:00* Test Item Value Reference Range Interpretation Comments POC-GLUCOSE METER (BEAKER) (test code = 1538) 47 mg/dL 70-110 L : Notified RN/MD: TESTED AT [address], [address]: Supervisor Pre Wave/Rail Specialist ID = [id number] for JAKUB CHAVES [id number] 08:13:00* Test Item Value Reference Range Interpretation Comments PHOSPHORUS (BEAKER) (test code = 604) 3.6 mg/dL 2.3-4.7 Supervisor Pre Wave ID - HENRIETTA [id number] 08:13:00* Test Item Value Reference Range Interpretation Comments MAGNESIUM (BEAKER) (test code = 627) 2.0 mg/dL 1.6-2.6 Supervisor Pre Wave ID - HENRIETTA LBASIC METABOLIC [id number] 08:13:00* Test Item Value Reference Range Interpretation Comments SODIUM (BEAKER) (test code = 381) 142 meq/L 136-145 POTASSIUM (BEAKER) (test code = 379) 3.5 meq/L 3.5-5.1 CHLORIDE (BEAKER) (test code = 382) 104 meq/L 98-107 CO2 (BEAKER) (test code = 355) 29 meq/L 22-29 BLOOD UREA NITROGEN (BEAKER) (test code = 354) 62 mg/dL 7-21 H CREATININE (BEAKER) (test code = 358) 1.74 mg/dL 0.57-1.25 H GLUCOSE RANDOM (BEAKER) (test code = 652) 66 mg/dL 70-105 L CALCIUM (BEAKER) (test code = 697) 9.1 mg/dL 8.4-10.2 EGFR (BEAKER) (test code = 1092) 38 mL/min/1.73 sq m ESTIMATED GFR IS NOT ACCURATE CREATININE CLEARANCE IN PREDICTING GLOMERULAR FILTRATION RATE. ESTIMATED GFR IS NOT APPLICABLE FOR DIALYSIS PATIENTS. Supervisor Pre Wave ID - PIAYA LCBC W/PLT COUNT & AUTO [id number] 07:53:00* Test Item Value Reference Range Interpretation Comments WHITE BLOOD CELL COUNT (BEAKER) (test code = 775) 6.0 K/ L 3.5- 10.5 RED BLOOD CELL COUNT (BEAKER) (test code = 761) 2.84 M/ L 4.63-6 .08 L HEMOGLOBIN (BEAKER) (test code = 410) 8.5 GM/DL 13.7-17.5 L HEMATOCRIT (BEAKER) (test code = 411) 28.8 % 40.1-51.0 L MEAN CORPUSCULAR VOLUME (BEAKER) (test code = 753) 101.4 fL 79. 0-92.2 H MEAN CORPUSCULAR HEMOGLOBIN (BEAKER) (test code = 751) 29.9 pg 25.7-32.2 MEAN CORPUSCULAR HEMOGLOBIN CONC (BEAKER) (test code = 752) 29.5 GM/DL 32.3-36.5 L RED CELL DISTRIBUTION WIDTH (BEAKER) (test code = 412) 19.0 % 11.6-14.4 H PLATELET COUNT (BEAKER) (test code = 756) 175 K/CU MM 150-450 MEAN PLATELET VOLUME (BEAKER) (test code = 754) 10.3 fL 9.4-12 .4 NUCLEATED RED BLOOD CELLS (BEAKER) (test code = 413) 3 /100 WBC 0 -0 H NEUTROPHILS RELATIVE PERCENT (BEAKER) (test code = 429) 80 % LYMPHOCYTES RELATIVE PERCENT (BEAKER) (test code = 430) 10 % MONOCYTES RELATIVE PERCENT (BEAKER) (test code = 431) 8 % EOSINOPHILS RELATIVE PERCENT (BEAKER) (test code = 432) 0 % BASOPHILS RELATIVE PERCENT (BEAKER) (test code = 437) 0 % NEUTROPHILS ABSOLUTE COUNT (BEAKER) (test code = 670) 4.83 K/ L 1.78-5.38 LYMPHOCYTES ABSOLUTE COUNT (BEAKER) (test code = 414) 0.61 K/ L 1.32-3.57 L MONOCYTES ABSOLUTE COUNT (BEAKER) (test code = 415) 0.47 K/ L 0. 30-0.82 EOSINOPHILS ABSOLUTE COUNT (BEAKER) (test code = 416) 0.01 K/ L 0.04-0.54 L BASOPHILS ABSOLUTE COUNT (BEAKER) (test code = 417) 0.02 K/ L 0. 01-0.08 IMMATURE GRANULOCYTES-RELATIVE PERCENT (BEAKER) (test code = 2801) 2 % 0-1 H CALCIUM, [id number] 07:35:00* Test Item Value Reference Range Interpretation Comments CALCIUM IONIZED (BEAKER) (test code = 698) 1.13 mmol/L 1.12-1.27 PH, BLOOD (BEAKER) (test code = 1810) 7.34 POCT-GLUCOSE [id number] 07:07:00* Test Item Value Reference Range Interpretation Comments POC-GLUCOSE METER (BEAKER) (test code = 1538) 67 mg/dL 70-110 L : TESTED AT [place] [id number] [facility], [address]: Supervisor Pre Wave/Rail Specialist ID = [id number] for JAKUB CHAVES POCT-GLUCOSE [id number] 21:07:00* Test Item Value Reference Range Interpretation Comments POC-GLUCOSE METER (BEAKER) (test code = 1538) 169 mg/dL 70-110 H : TESTED AT [facility] [address] [facility], [address]: Supervisor Pre Wave/Rail Specialist ID = [id number] for Franci Null POCT-GLUCOSE [id number] 16:47:00* Test Item Value Reference Range Interpretation Comments POC-GLUCOSE METER (BEAKER) (test code = 1538) 158 mg/dL 70-110 H : TESTED AT [place] [id number] [facility], [address]: Supervisor Pre Wave/Rail Specialist ID = [id number] for ELBA CABA POCT-GLUCOSE [id number] 11:55:00* Test Item Value Reference Range Interpretation Comments POC-GLUCOSE METER (BEAKER) (test code = 1538) 158 mg/dL 70-110 H : TESTED AT [address], [address]: Supervisor Pre Wave/Rail Specialist ID = [id number] for ELBA CABA WOUND CULTURE + GRAM [id number] 11:45:00* Test Item Value Reference Range Interpretation Comments CULTURE (BEAKER) (test code = 1095) STENOTROPHOMONAS MALTOPHILIA A 4+ Stenotrophomonas maltophilia Ceftazidime (test code = 27) Susceptible 0-8 , Resista nt <0 or >8 R Levofloxacin (test code = 22) Susceptible 0-2 , Resist ant <0 or >2 S Minocycline (test code = 35) Susceptible 0-4 , Resista nt <0 or >4 S Trimethoprim + Sulfamethoxazole (test code = 47) Susceptible 0-40 , Resistant <0 or >40 S CULTURE (BEAKER) (test code = 1095) STENOTROPHOMONAS MALTOPHILIA A 4+ Stenotrophomonas maltophiliaof a second type Ceftazidime (test code = 27) Susceptible 0-8 , Resista nt <0 or >8 S Levofloxacin (test code = 22) Susceptible 0-2 , Resist ant <0 or >2 S Minocycline (test code = 35) Susceptible 0-4 , Resista nt <0 or >4 S Trimethoprim + Sulfamethoxazole (test code = 47) Susceptible 0-40 , Resistant <0 or >40 S CULTURE (BEAKER) (test code = 1095) A 4+ Giovanni albicans CULTURE (BEAKER) (test code = 1095) ENTEROCOCCUS FAECALIS A 3+ Enterococcus faecalis Ampicillin (test code = 26) S Linezolid (test code = 40) S Vancomycin (test code = 13) S GRAM STAIN RESULT (BEAKER) (test code = 1123) <1+ WBCs GRAM STAIN RESULT (BEAKER) (test code = 047652) <1+ gram negative r ods GRAM STAIN RESULT (BEAKER) (test code = 811207) <1+ gr am positive cocci in pairs GRAM STAIN RESULT (BEAKER) (test code = 467651) <1+ yeast GRAM STAIN RESULT (BEAKER) (test code = 750386) <1+ gram variable r ods 4+ Skin [id number] 07:21:00* Test Item Value Reference Range Interpretation Comments PHOSPHORUS (BEAKER) (test code = 604) 2.7 mg/dL 2.3-4.7 Supervisor Pre Wave ID - HENRIETTA [id number] 07:21:00* Test Item Value Reference Range Interpretation Comments MAGNESIUM (BEAKER) (test code = 627) 2.2 mg/dL 1.6-2.6 Supervisor Pre Wave ID - HENRIETTA LBASIC METABOLIC [id number] 07:21:00* Test Item Value Reference Range Interpretation Comments SODIUM (BEAKER) (test code = 381) 139 meq/L 136-145 POTASSIUM (BEAKER) (test code = 379) 3.6 meq/L 3.5-5.1 CHLORIDE (BEAKER) (test code = 382) 100 meq/L 98-107 CO2 (BEAKER) (test code = 355) 31 meq/L 22-29 H BLOOD UREA NITROGEN (BEAKER) (test code = 354) 67 mg/dL 7-21 H CREATININE (BEAKER) (test code = 358) 1.86 mg/dL 0.57-1.25 H GLUCOSE RANDOM (BEAKER) (test code = 652) 100 mg/dL 70-105 CALCIUM (BEAKER) (test code = 697) 9.7 mg/dL 8.4-10.2 EGFR (BEAKER) (test code = 1092) 36 mL/min/1.73 sq m ESTIMATED GFR IS NOT ACCURATE CREATININE CLEARANCE IN PREDICTING GLOMERULAR FILTRATION RATE. ESTIMATED GFR IS NOT APPLICABLE FOR DIALYSIS PATIENTS. Supervisor Pre Wave ID - HENRIETTA LPOCT-GLUCOSE [id number] 07:06:00* Test Item Value Reference Range Interpretation Comments POC-GLUCOSE METER (BEAKER) (test code = 1538) 105 mg/dL 70-110 : TESTED AT [facility] [address] [facility], [address]: Supervisor Pre Wave/Rail Specialist ID = [id number] for ELBA CABA CBC W/PLT COUNT & AUTO [id number] 07:01:00* Test Item Value Reference Range Interpretation Comments WHITE BLOOD CELL COUNT (BEAKER) (test code = 775) 6.4 K/ L 3.5- 10.5 RED BLOOD CELL COUNT (BEAKER) (test code = 761) 2.82 M/ L 4.63-6 .08 L HEMOGLOBIN (BEAKER) (test code = 410) 8.6 GM/DL 13.7-17.5 L HEMATOCRIT (BEAKER) (test code = 411) 28.6 % 40.1-51.0 L MEAN CORPUSCULAR VOLUME (BEAKER) (test code = 753) 101.4 fL 79. 0-92.2 H MEAN CORPUSCULAR HEMOGLOBIN (BEAKER) (test code = 751) 30.5 pg 25.7-32.2 MEAN CORPUSCULAR HEMOGLOBIN CONC (BEAKER) (test code = 752) 30.1 GM/DL 32.3-36.5 L RED CELL DISTRIBUTION WIDTH (BEAKER) (test code = 412) 18.9 % 11.6-14.4 H PLATELET COUNT (BEAKER) (test code = 756) 179 K/CU MM 150-450 MEAN PLATELET VOLUME (BEAKER) (test code = 754) 10.5 fL 9.4-12 .4 NUCLEATED RED BLOOD CELLS (BEAKER) (test code = 413) 2 /100 WBC 0 -0 H NEUTROPHILS RELATIVE PERCENT (BEAKER) (test code = 429) 80 % LYMPHOCYTES RELATIVE PERCENT (BEAKER) (test code = 430) 10 % MONOCYTES RELATIVE PERCENT (BEAKER) (test code = 431) 7 % EOSINOPHILS RELATIVE PERCENT (BEAKER) (test code = 432) 1 % BASOPHILS RELATIVE PERCENT (BEAKER) (test code = 437) 1 % NEUTROPHILS ABSOLUTE COUNT (BEAKER) (test code = 670) 5.05 K/ L 1.78-5.38 LYMPHOCYTES ABSOLUTE COUNT (BEAKER) (test code = 414) 0.63 K/ L 1.32-3.57 L MONOCYTES ABSOLUTE COUNT (BEAKER) (test code = 415) 0.47 K/ L 0. 30-0.82 EOSINOPHILS ABSOLUTE COUNT (BEAKER) (test code = 416) 0.03 K/ L 0.04-0.54 L BASOPHILS ABSOLUTE COUNT (BEAKER) (test code = 417) 0.03 K/ L 0. 01-0.08 IMMATURE GRANULOCYTES-RELATIVE PERCENT (BEAKER) (test code = 2801) 2 % 0-1 H CALCIUM, [id number] 06:36:00* Test Item Value Reference Range Interpretation Comments CALCIUM IONIZED (BEAKER) (test code = 698) 1.20 mmol/L 1.12-1.27 PH, BLOOD (BEAKER) (test code = 1810) 7.38 POCT-GLUCOSE [id number] 21:19:00* Test Item Value Reference Range Interpretation Comments POC-GLUCOSE METER (BEAKER) (test code = 1538) 142 mg/dL 70-110 H : TESTED AT [address], [address]: Supervisor Pre Wave/Rail Specialist ID = [id number] for CAROLYN WRIGHT III POCT-GLUCOSE [id number] 16:42:00* Test Item Value Reference Range Interpretation Comments POC-GLUCOSE METER (BEAKER) (test code = 1538) 185 mg/dL 70-110 H : TESTED AT [address], [address]: Supervisor Pre Wave/Rail Specialist ID = [id number] for ELBA CABA POCT-GLUCOSE [id number] 11:49:00* Test Item Value Reference Range Interpretation Comments POC-GLUCOSE METER (BEAKER) (test code = 1538) 174 mg/dL 70-110 H : TESTED AT [address], [address]: Supervisor Pre Wave/Rail Specialist ID = [id number] for ELBA CABA Sputum Culture + Gram [id number] 10:56:00* Test Item Value Reference Range Interpretation Comments Result (test code = 6463-4) 1+ Normal respiratory raine present Gram Stain Result (test code = 1123) [facility] [id number] 10:56:00* Test Item Value Reference Range Interpretation Comments CULTURE (BEAKER) (test code = 1095) 1+ Normal respiratory raine pre sent GRAM STAIN RESULT (BEAKER) (test code = 1123) 1+ WBCs GRAM STAIN RESULT (BEAKER) (test code = 01075) No organisms seen MRSA [id number] 10:12:00* Test Item Value Reference Range Interpretation Comments Result (test code = 6463-4) No [facility] [id number] 10:12:00* Test Item Value Reference Range Interpretation Comments CULTURE (BEAKER) (test code = 1095) No MRSA isolated POCT-GLUCOSE [id number] 07:33:00* Test Item Value Reference Range Interpretation Comments POC-GLUCOSE METER (BEAKER) (test code = 1538) 137 mg/dL 70-110 H : TESTED AT [address], [address]: Supervisor Pre Wave/Rail Specialist ID = [id number] for ELBA CABA B-TYPE NATRIURETIC FACTOR (BNP)2020-06-24 04:35:00* Test Item Value Reference Range Interpretation Comments B-TYPE NATRIURETIC PEPTIDE (BEAKER) (test code = 700) 929 pg/mL 0-100 H Supervisor Pre Wave ID - PIAYA [id number] 04:32:00* Test Item Value Reference Range Interpretation Comments PHOSPHORUS (BEAKER) (test code = 604) 3.0 mg/dL 2.3-4.7 Supervisor Pre Wave ID - PIAYA [id number] 04:32:00* Test Item Value Reference Range Interpretation Comments MAGNESIUM (BEAKER) (test code = 627) 2.3 mg/dL 1.6-2.6 Supervisor Pre Wave ID - PIEWA LCOMPREHENSIVE METABOLIC [id number] 04:32:00* Test Item Value Reference Range Interpretation Comments TOTAL PROTEIN (BEAKER) (test code = 770) 5.9 gm/dL 6.0-8.3 L ALBUMIN (BEAKER) (test code = 1145) 3.4 g/dL 3.5-5.0 L ALKALINE PHOSPHATASE (BEAKER) (test code = 346) 104 U/L 40-150 BILIRUBIN TOTAL (BEAKER) (test code = 377) 0.8 mg/dL 0.2-1.2 SODIUM (BEAKER) (test code = 381) 138 meq/L 136-145 POTASSIUM (BEAKER) (test code = 379) 4.0 meq/L 3.5-5.1 CHLORIDE (BEAKER) (test code = 382) 100 meq/L 98-107 CO2 (BEAKER) (test code = 355) 28 meq/L 22-29 BLOOD UREA NITROGEN (BEAKER) (test code = 354) 74 mg/dL 7-21 H CREATININE (BEAKER) (test code = 358) 1.99 mg/dL 0.57-1.25 H GLUCOSE RANDOM (BEAKER) (test code = 652) 164 mg/dL 70-105 H CALCIUM (BEAKER) (test code = 697) 9.5 mg/dL 8.4-10.2 AST (SGOT) (BEAKER) (test code = 353) 33 U/L 5-34 ALT (SGPT) (BEAKER) (test code = 347) 49 U/L 6-55 EGFR (BEAKER) (test code = 1092) 33 mL/min/1.73 sq m ESTIMATED GFR IS NOT ACCURATE CREATININE CLEARANCE IN PREDICTING GLOMERULAR FILTRATION RATE. ESTIMATED GFR IS NOT APPLICABLE FOR DIALYSIS PATIENTS. Supervisor Pre Wave ID - PIAYA LCBC W/PLT COUNT & AUTO [id number] 04:20:00* Test Item Value Reference Range Interpretation Comments WHITE BLOOD CELL COUNT (BEAKER) (test code = 775) 6.9 K/ L 3.5- 10.5 RED BLOOD CELL COUNT (BEAKER) (test code = 761) 2.70 M/ L 4.63-6 .08 L HEMOGLOBIN (BEAKER) (test code = 410) 8.2 GM/DL 13.7-17.5 L HEMATOCRIT (BEAKER) (test code = 411) 26.9 % 40.1-51.0 L MEAN CORPUSCULAR VOLUME (BEAKER) (test code = 753) 99.6 fL 79. 0-92.2 H MEAN CORPUSCULAR HEMOGLOBIN (BEAKER) (test code = 751) 30.4 pg 25.7-32.2 MEAN CORPUSCULAR HEMOGLOBIN CONC (BEAKER) (test code = 752) 30.5 GM/DL 32.3-36.5 L RED CELL DISTRIBUTION WIDTH (BEAKER) (test code = 412) 18.4 % 11.6-14.4 H PLATELET COUNT (BEAKER) (test code = 756) 168 K/CU MM 150-450 MEAN PLATELET VOLUME (BEAKER) (test code = 754) 10.2 fL 9.4-12 .4 NUCLEATED RED BLOOD CELLS (BEAKER) (test code = 413) 1 /100 WBC 0 -0 H NEUTROPHILS RELATIVE PERCENT (BEAKER) (test code = 429) 85 % LYMPHOCYTES RELATIVE PERCENT (BEAKER) (test code = 430) 7 % MONOCYTES RELATIVE PERCENT (BEAKER) (test code = 431) 6 % EOSINOPHILS RELATIVE PERCENT (BEAKER) (test code = 432) 0 % BASOPHILS RELATIVE PERCENT (BEAKER) (test code = 437) 0 % NEUTROPHILS ABSOLUTE COUNT (BEAKER) (test code = 670) 5.82 K/ L 1.78-5.38 H LYMPHOCYTES ABSOLUTE COUNT (BEAKER) (test code = 414) 0.48 K/ L 1.32-3.57 L MONOCYTES ABSOLUTE COUNT (BEAKER) (test code = 415) 0.40 K/ L 0. 30-0.82 EOSINOPHILS ABSOLUTE COUNT (BEAKER) (test code = 416) 0.01 K/ L 0.04-0.54 L BASOPHILS ABSOLUTE COUNT (BEAKER) (test code = 417) 0.02 K/ L 0. 01-0.08 IMMATURE GRANULOCYTES-RELATIVE PERCENT (BEAKER) (test code = 2801) 2 % 0-1 H CALCIUM, [id number] 04:05:00* Test Item Value Reference Range Interpretation Comments CALCIUM IONIZED (BEAKER) (test code = 698) 1.18 mmol/L 1.12-1.27 PH, BLOOD (BEAKER) (test code = 1810) 7.38 POCT-GLUCOSE [id number] 21:28:00* Test Item Value Reference Range Interpretation Comments POC-GLUCOSE METER (BEAKER) (test code = 1538) 184 mg/dL 70-110 H : TESTED AT [address], [address]: Supervisor Pre Wave/Rail Specialist ID = [id number] for CAROLYN WRIGHT III POCT-GLUCOSE [id number] 16:45:00* Test Item Value Reference Range Interpretation Comments POC-GLUCOSE METER (BEAKER) (test code = 1538) 212 mg/dL 70-110 H : TESTED AT [place] [id number] [facility], [address]: Supervisor Pre Wave/Rail Specialist ID = [id number] for ANDIE JAKUB POCT-GLUCOSE [id number] 11:21:00* Test Item Value Reference Range Interpretation Comments POC-GLUCOSE METER (BEAKER) (test code = 1538) 146 mg/dL 70-110 H : TESTED AT [address], [address]: Supervisor Pre Wave/Rail Specialist ID = [id number] for Mery Bowers POCT-GLUCOSE [id number] 07:08:00* Test Item Value Reference Range Interpretation Comments POC-GLUCOSE METER (BEAKER) (test code = 1538) 131 mg/dL 70-110 H : TESTED AT [facility] [address] [place] [place], [address]: Supervisor Pre Wave/Rail Specialist ID = [id number] for DON AMEZQUITA COMPREHENSIVE METABOLIC [id number] 04:37:00* Test Item Value Reference Range Interpretation Comments TOTAL PROTEIN (BEAKER) (test code = 770) 5.8 gm/dL 6.0-8.3 L ALBUMIN (BEAKER) (test code = 1145) 3.3 g/dL 3.5-5.0 L ALKALINE PHOSPHATASE (BEAKER) (test code = 346) 113 U/L 40-150 BILIRUBIN TOTAL (BEAKER) (test code = 377) 0.8 mg/dL 0.2-1.2 SODIUM (BEAKER) (test code = 381) 138 meq/L 136-145 POTASSIUM (BEAKER) (test code = 379) 3.9 meq/L 3.5-5.1 CHLORIDE (BEAKER) (test code = 382) 99 meq/L 98-107 CO2 (BEAKER) (test code = 355) 27 meq/L 22-29 BLOOD UREA NITROGEN (BEAKER) (test code = 354) 82 mg/dL 7-21 H CREATININE (BEAKER) (test code = 358) 2.33 mg/dL 0.57-1.25 H GLUCOSE RANDOM (BEAKER) (test code = 652) 141 mg/dL 70-105 H CALCIUM (BEAKER) (test code = 697) 9.1 mg/dL 8.4-10.2 AST (SGOT) (BEAKER) (test code = 353) 38 U/L 5-34 H ALT (SGPT) (BEAKER) (test code = 347) 48 U/L 6-55 EGFR (BEAKER) (test code = 1092) 27 mL/min/1.73 sq m ESTIMATED GFR IS NOT ACCURATE CREATININE CLEARANCE IN PREDICTING GLOMERULAR FILTRATION RATE. ESTIMATED GFR IS NOT APPLICABLE FOR DIALYSIS PATIENTS. Supervisor Pre Wave ID - EDASICALCIUM, [id number] 04:25:00* Test Item Value Reference Range Interpretation Comments CALCIUM IONIZED (BEAKER) (test code = 698) 1.15 mmol/L 1.12-1.27 PH, BLOOD (BEAKER) (test code = 1810) 7.37 [id number] 04:19:00* Test Item Value Reference Range Interpretation Comments PHOSPHORUS (BEAKER) (test code = 604) 3.2 mg/dL 2.3-4.7 Supervisor Pre Wave ID - [id number] 04:19:00* Test Item Value Reference Range Interpretation Comments MAGNESIUM (BEAKER) (test code = 627) 2.5 mg/dL 1.6-2.6 Supervisor Pre Wave ID - EDASICBC W/PLT COUNT & AUTO [id number] 04:10:00* Test Item Value Reference Range Interpretation Comments WHITE BLOOD CELL COUNT (BEAKER) (test code = 775) 6.9 K/ L 3.5- 10.5 RED BLOOD CELL COUNT (BEAKER) (test code = 761) 2.75 M/ L 4.63-6 .08 L HEMOGLOBIN (BEAKER) (test code = 410) 8.4 GM/DL 13.7-17.5 L HEMATOCRIT (BEAKER) (test code = 411) 27.2 % 40.1-51.0 L MEAN CORPUSCULAR VOLUME (BEAKER) (test code = 753) 98.9 fL 79. 0-92.2 H MEAN CORPUSCULAR HEMOGLOBIN (BEAKER) (test code = 751) 30.5 pg 25.7-32.2 MEAN CORPUSCULAR HEMOGLOBIN CONC (BEAKER) (test code = 752) 30.9 GM/DL 32.3-36.5 L RED CELL DISTRIBUTION WIDTH (BEAKER) (test code = 412) 18.5 % 11.6-14.4 H PLATELET COUNT (BEAKER) (test code = 756) 173 K/CU MM 150-450 MEAN PLATELET VOLUME (BEAKER) (test code = 754) 10.2 fL 9.4-12 .4 NUCLEATED RED BLOOD CELLS (BEAKER) (test code = 413) 2 /100 WBC 0 -0 H NEUTROPHILS RELATIVE PERCENT (BEAKER) (test code = 429) 83 % LYMPHOCYTES RELATIVE PERCENT (BEAKER) (test code = 430) 9 % MONOCYTES RELATIVE PERCENT (BEAKER) (test code = 431) 6 % EOSINOPHILS RELATIVE PERCENT (BEAKER) (test code = 432) 0 % BASOPHILS RELATIVE PERCENT (BEAKER) (test code = 437) 0 % NEUTROPHILS ABSOLUTE COUNT (BEAKER) (test code = 670) 5.71 K/ L 1.78-5.38 H LYMPHOCYTES ABSOLUTE COUNT (BEAKER) (test code = 414) 0.59 K/ L 1.32-3.57 L MONOCYTES ABSOLUTE COUNT (BEAKER) (test code = 415) 0.41 K/ L 0. 30-0.82 EOSINOPHILS ABSOLUTE COUNT (BEAKER) (test code = 416) 0.03 K/ L 0.04-0.54 L BASOPHILS ABSOLUTE COUNT (BEAKER) (test code = 417) 0.02 K/ L 0. 01-0.08 IMMATURE GRANULOCYTES-RELATIVE PERCENT (BEAKER) (test code = 2801) 1 % 0-1 POCT-GLUCOSE [id number] 00:15:00* Test Item Value Reference Range Interpretation Comments POC-GLUCOSE METER (BEAKER) (test code = 1538) 205 mg/dL 70-110 H : TESTED AT [facility] [address] [facility] [facility], [address]: Supervisor Pre Wave/Rail Specialist ID = [id number] for RUPERT RODRIGUEZ POCT-GLUCOSE [id number] 17:54:00* Test Item Value Reference Range Interpretation Comments POC-GLUCOSE METER (BEAKER) (test code = 1538) 201 mg/dL 70-110 H : TESTED AT [address], [address]: Supervisor Pre Wave/Rail Specialist ID = [id number] for TOREY FORD 2D Echo W/Doppler(CW/PW/Color)2020-06-22 17:45:04Ejection FractionSLEH ECHO HEARTLAB MKCKESSON CPACSInterface, External Ris In - 06/22/2020 5:45 PM CDTTransthoracic Echocardiography Report (TTE) Demographics Patient Name STEVE BENEDICT Date of Study 06/22/2020 Gender Male Visit Number [id number] Race Unknown Room Number 7212 Number Date of 1945 Referring Physician George Wheeler Age 74 year(s) Nursing Education Specialist Familia Coe Photostat Operator Jimena Negrete, Interpreting Aramis Galeano MD [facility] Physician Procedure Type of Study TTE procedure:2DECHO W DOPPLER(CW/PW/COLOR) (ANA) Indications:Shortness of breath.Clinical HistoryHGB 8.7HCT 27.8 %ACUTE RESPIRATORY FAILUREContrast Medium: Definity.Height: 69 inche s Weight: 112.94 kg (249 lbs) BSA: 2.27 m^2 BMI: 36.77kg/m^2HR: 120 bpm BP: 138/ 116 mmHg Summary 1. The left ventricle is chamber size (by vol index) is normal. No evidence of LV hypertrophy. Septal motion is abnormal, likely related to con duction abnormality. The other segments are mildly hypokinetic. LVEF by Fritz' s method of disk assessment is mildly reduced (40-44%). LA size is moderately en larged (42-48 ml/m2) . 2. RV chamber size is mild to moderately enlarged. Globa l RV systolic function is normal.RA cavity size is moderately enlarged . Estimat ed peak systolic PA pressure is 55-60 mmHg (moderate pulmonary hypertension). 3 . Mild tricuspid regurgitation. Previous Study No prior studies available for c omparison. Signature ------- ---- Findings Technical Quality: Technically adequate exam. Rhythm/BP Atrial fibrillation Left Ventricle LV endocardium is adequately vis ualized with IV ultrasound enhancing agent. The left vent ricle is chamber size (by vol index) is normal (male - LV ED vol - 34-74ml/m2). No evidence of LV hypertrophy. Septal motion is abnormal, likely related to conduction abnormality . The other segments are mi ldly hypokinetic. Global LV systolic function mildly redu gena . LVEF by Fritz's method of disk assessment is mild ly reduced (40-44%) . Degree of diastolic dysfunction (LA P assessment) is inconclusive due to arrhythmia . Left A trium LA size is moderately enlarged (42-48 ml/m2) . Right Ventricle RV chamber size is mild to moderately enlarged. G lobal RV systolic function is normal . Right Atrium RA cavity size is moderately enlarged . Aortic Valve Mild AoV cusp thickening. No evidence of aortic regurgitation. Mitral Valve Mild mitral annular calcification. Trace mitral regurgitation. Tricuspid Valve TV structure is normal. Mild t ricuspid regurgitation. Estimated peak systolic PA pressu re is 55-60 mmHg (moderate pulmonary hypertension) . Pul markel Valve Normal PV structure and function by limited views and Doppler. Aorta Aortic root size (SInus of Kiera fernando diameter) is normal . Pericardium No pe ricardial effusion is visualized. IVC/SVC/PA/PV/Pleural The inferior vena cava size is increased . The estimated RA pressure by IVC dyn amics 5-10mmHg . Chambers/Structures Left Atrium LA Volu me: 108.1 ml LA Area: 28.47 cm^2 LA Vol. Index: 48 ml/m^2 L eft Ventricle LVIDd: 4.83 cm LV Septum Diastolic: 1.1 cm LV Septum Systolic: 1. 28 cm LV PW Diastolic: 1.05 cm LV PW Systolic: 1.38 cm LVEDV Fritz's:96.97 ml LVEDVI: 43 ml/m^2 LVESV Fritz's:55.87 ml L VESVI: 25 ml/m^2 LVEF Fritz's: 42.4 % LVOT Diameter: 2.13 cm Aorta Ao Root S of Kiera.: 3.33 cm Doppler/Quantitative Measurements Aortic Valve Peak Velocity: 1.32 m/s Mean Velocity: 0.91 m/s Peak Gradient: 6.98 mmHg Mean Gradient: 3.8 mmHg AV Area (continuity): 2.99 cm^2 AV VTI: 19 .91 cm AV DVI: 0.84 LVOT Peak Velocity: 0.99 m/s Peak Gradient: 3 .96 mmHg Mean Velocity: 0.64 m/s Mean Gradient: 1.[address]: 2.13 cm LVOT VTI: 16.71 cm LVOT Area: 3.56 cm^2 LVOT SV:59.51 ml LVOT CO: 7.14 l/min LVOT CI: 3.15 l/min/m^2 T ricuspid Valve TR Velocity: 3.39 m/s TR Gradient: 46.[address] [facility] [id number] 12:25:00* Test Item Value Reference Range Interpretation Comments POC-GLUCOSE METER (HINA) (test code = 1538) 101 mg/dL 70-110 : TESTED AT [facility] [address] [facility] [facility], [address]: Supervisor Pre Wave/Rail Specialist ID = [id number] for TOREY FORD CT, CHEST, WITHOUT [id number] 10:51:00Unlisted Reason for Exam - Click Yes and Enter Reason Below->NoAnesthesia:->NoneFINAL REPORT CT Chest without contrast History: Shortness [...] size, and/or use of iterative reconstruction technique. Findings:No mediastinal lymphadenopathy. No definite hilar enlargement. Normal size heart. No pericardial effusion. No thoracic aortic aneurysm. Normal caliber of main pulmonary trunk. Patent angélica tral airways. Small bilateral pleural effusions. No pneumothorax is appreciated . Significant underlying centrilobular pulmonary emphysema. Superimposed patchy groundglass opacities are seen within the right upper lobe. Bilateral lower lobe subsegmental atelectasis is noted. No significant findings in the partially imaged abdomen. No aggressive osseous lesion. Multiple chronic, healed bilater al rib fractures. Impression: 1. Patchy groundglass densities within the right u pper lobe could represent the sequelae of recent pneumonia. Suggest clinical cor relation.2. Significant underlying pulmonary emphysema.3. Small bilateral pleura l effusions. Signed: Omar Pathak MDReport Verified Date/Time: 06/22/2020 10 :51:51 Reading Location: [facility] Radiology Reading Room chest without IV contrast 2020-06-22 10:51:00Interface, External Ris In - 06/22/2020 10:[address] Chest without contrast History: Shortness [...] size, and/or use of iterative reconstruction technique. Findings:No mediastinal lymphadenopathy. No definite hilar enlargement. Normal [...] the sequelae of recent pneumonia. Suggest clinical correlation.2. Significant underlying pulmonary emphysema.3. Small bilateral pleural effusions. Signed: Omar Pathak Date/Time: 06/22/2020 10:51:51 Reading Location: [facility] Radiology Reading Room Electronically signed by: OMAR PATHAK MD on 10:51 AM [facility] 2020-06-22 10:40:00Unlisted Reason for Exam - Click Yes and Enter Reason Below-> YesUnlisted Reason for Exam->fallFINAL REPORT CT Head without contrast CLINICAL HISTORY: [...] There is generalized parenchymal volume loss without hydroce phalus, midline shift, or apparent mass effect. There are no extra-axial fluid c ollections. The paranasal sinuses are well-aerated. IMPRESSION: No evidence of s kull fracture or intracranial hemorrhage. Signed: Gurdeep Woods d Date/Time: 06/22/2020 10:40:40 Reading Location: [facility] C013 Neuro Reading R oom brain without IV [id number] 10:40:00Interface, External Ris In - 06/22/2020 10:[address] Head without contrast CLINICAL HISTORY: [...] fracture or intracranial hemorrhage. Signed: Gurdeep Woods MDReport Verified Date/Time: 06/22/2020 10: 40:40 Reading Location: [address] Neuro Reading Room Electronically sign ed by: GURDEEP WOODS M.D. on 06/22/2020 10:40 AM [facility] SARS-COV2/RT-PCR ([facility])2020-06-22 06:18:00* Test Item Value Reference Range Interpretation Comments SARS-COV2/RT-PCR (test code = 7157751) Negative N ot Detected, Negative, See external report for linked test SARS-COV-2 PERFORMING LAB (test code = 7222102) [facility] Negative results do not preclude SARS-CoV-2 infection and should not be used as the sole basis for patient management decisions. Negative results must be combin ed with clinical observations, patient history, and epidemiological information. A false negative result may occur if a specimen is improperly collected, transp orted or handled.The limit of detection for this assay is 250 copies/mL.This CARA S CoV-2 test is a rapid, real-time RT-PCR test intended for the qualitative dete ction of nucleic acid from SARS-CoV-2 in a nasopharyngeal swab specimen collecte d from individuals suspected of COVID-19 by their healthcare provider.This test has not been Food and Drug Administration (FDA) cleared or approved and has been authorized by FDA under an Emergency Use Authorization (EUA). This EUA will be effective until the declaration that circumstances exist justifying the authoriz ation of the emergency use of in vitro diagnostic tests for detection and/or bravo gnosis of COVID-19 is terminated under Section 564(b)(2) of the Act or the EUA i s revoked under Section 564(g) of the Act.Fact Sheet for Healthcare Providers:ht tps://www.Heartbeat/Documents/Xpert%20Xpress%20SARS%20CoV-2/Fact%20Sheets/302- 3802%56RCWG-PNT-0%20HEALTHCARE%20PROVIDERS%20FACT%20SHEET.pdfFact Sheet for Heal thcare Patients:https://www.Heartbeat/Documents/Xpert%20Xpress%20SARS%20CoV-2/ Fact%20Sheets/3023801%52KONR-YZT-9%20PATIENT%20FACT%20SHEET.pdfPerforming Labor atory:[facility] [place] [address] [id number] 03:41:00* Test Item Value Reference Range Interpretation Comments Haptoglobin (test code = 4542-7) 117 mg/dL 14-258 MARCO (test code = MARCO) Supervisor Pre Wave ID - NTP Lab Interpretation (test code = 50204-7) Normal [facility] HospitalHAPTOGLOBIN2020-08-27 03:41:00* Test Item Value Reference Range Interpretation Comments HAPTOGLOBIN (BEAKER) (test code = 366) 117 mg/dL 14-258 Supervisor Pre Wave ID - [id number] 03:10:00* Test Item Value Reference Range Interpretation Comments Ferritin (test code = 2276-4) 199.45 ng/mL 5-275 MARCO (test code = MARCO) Supervisor Pre Wave ID - NAUN W Lab Interpretation (test code = 43276-3) Normal [facility] HospitalFERRITIN2020-08-27 03:10:00* Test Item Value Reference Range Interpretation Comments FERRITIN (BEAKER) (test code = 361) 199.45 ng/mL 5.00-275.00 Supervisor Pre Wave ID Dawson Donahue, TIBC, % sat. (without ferritin)2020-06-22 02:50:00* Test Item Value Reference Range Interpretation Comments Iron (test code = 2498-4) 71.0 ug/dL 40-160 TIBC (test code = 2500-7) 284 ug/dL 250-450 Iron % Saturation (test code = 2502-3) 25 % 20-55 MARCO (test code = MARCO) Supervisor Pre Wave ID Dawson Ordoñez Lab Interpretation (test code = 71020-5) Normal [facility] HospitalIRON, TIBC, % SAT. (WITHOUT FERRITIN)2020-06-22 02:50:00* Test Item Value Reference Range Interpretation Comments IRON (BEAKER) (test code = 547) 71.0 ug/dL 40.0-160.0 TOTAL IRON BINDING CAPACITY (BEAKER) (test code = 769) 284 ug/dL 250-450 IRON % SATURATION (2) (BEAKER) (test code = 2590) 25 % 20-5 5 Supervisor Pre Wave ID Dawson MAGALLON WTroponin [id number] 02:29:00* Test Item Value Reference Range Interpretation Comments Troponin I (test code = 58159-6) 0.20 ng/mL 0-0.03 HH MARCO (test code = MARCO) Troponin I (TnI) levels must be interpreted in the context of the presenting symptoms and the clinical findings. Elevated TnI levels indicate myocardial damage, but are not specific for ischemic heart disease. Elevated TnI levels are seen in patients with other cardiac conditions (including myocarditis and congestive heart failure), and slight TnI elevations occur in patients with other conditions, including sepsis, renal failure, acidosis, acute neurological disease, and persistent tachyarrhythmia.Supervisor Pre Wave ID Dawson Ordoñez Lab Interpretation (test code = 18175-5) Abnormal [facility] HospitalTROPONIN [id number] 02:29:00* Test Item Value Reference Range Interpretation Comments TROPONIN I (BEAKER) (test code = 397) 0.20 ng/mL 0.00-0.03 HH Troponin I (TnI) levels must be interpreted in the context of the presenting sym ptoms and the clinical findings. Elevated TnI levels indicate myocardial damage, but are not specific for ischemic heart disease. Elevated TnI levels are seen in patients with other cardiac conditions (including myocarditis and congestive h eart failure), and slight TnI elevations occur in patients with other conditions , including sepsis, renal failure, acidosis, acute neurological disease, and per sistent tachyarrhythmia.Supervisor Pre Wave ALLEN MAGALLON WBASIC METABOLIC [id number] 02:19:00* Test Item Value Reference Range Interpretation Comments SODIUM (BEAKER) (test code = 381) 135 meq/L 136-145 L POTASSIUM (BEAKER) (test code = 379) 3.5 meq/L 3.5-5.1 CHLORIDE (BEAKER) (test code = 382) 96 meq/L 98-107 L CO2 (BEAKER) (test code = 355) 29 meq/L 22-29 BLOOD UREA NITROGEN (BEAKER) (test code = 354) 83 mg/dL 7-21 H CREATININE (BEAKER) (test code = 358) 2.60 mg/dL 0.57-1.25 H GLUCOSE RANDOM (BEAKER) (test code = 652) 95 mg/dL 70-105 CALCIUM (BEAKER) (test code = 697) 9.1 mg/dL 8.4-10.2 EGFR (BEAKER) (test code = 1092) 24 mL/min/1.73 sq m ESTIMATED GFR IS NOT ACCURATE CREATININE CLEARANCE IN PREDICTING GLOMERULAR FILTRATION RATE. ESTIMATED GFR IS NOT APPLICABLE FOR DIALYSIS PATIENTS. Supervisor Pre Wave ALLEN MAGALLON WLipid [id number] 02:16:00* Test Item Value Reference Range Interpretation Comments Triglycerides (test code = 2571-8) 167 mg/dL Cholesterol (test code = 2093-3) 185 mg/dL HDL (test code = 2085-9) 33 mg/dL LDL Calculated (test code = 29623-4) 119 mg/dL MARCO (test code = MARCO) Triglyceride Reference Range : Low Risk <150 Borderline 150-199 High Risk 200-499 Very High Risk >=500 Cholesterol Reference Range: Low Risk <200 Borderline 200-239 High Risk >240 HDL Cholesterol Reference Range: Low Risk >=60 High Risk <40 LDL Cholesterol Reference Range: Optimal <100 Near Optimal 100-129 Borderline 130-159 High 160-189 Very High >=190 Supervisor Pre Wave ALLEN Dawson MAGALLON W [facility] HospitalLactate dehydrogenase (LDH)2020-06-22 02:16:00* Test Item Value Reference Range Interpretation Comments LDH (test code = 2532-0) 321 U/L 125-220 H MARCO (test code = MARCO) Supervisor Pre Wave ID Dawson MAGALLON W Lab Interpretation (test code = 69985-5) Abnormal [facility] HospitalMAGNESIUM2020-08-27 02:16:00* Test Item Value Reference Range Interpretation Comments MAGNESIUM (BEAKER) (test code = 627) 2.6 mg/dL 1.6-2.6 Supervisor Pre Wave ID Dawson JACOBSIPID [id number] 02:16:00* Test Item Value Reference Range Interpretation Comments TRIGLYCERIDES (BEAKER) (test code = 540) 167 mg/dL CHOLESTEROL (BEAKER) (test code = 631) 185 mg/dL HDL CHOLESTEROL (BEAKER) (test code = 976) 33 mg/dL LDL CHOLESTEROL CALCULATED (BEAKER) (test code = 633) 119 mg/dL Triglyceride Reference Range: Low Risk <150 Borderline 150-199 High Risk 200-499 Very High Risk >=500Cholesterol Reference Range: Low Risk <200 Borderline 200-239 High Risk >240HDL Cholesterol Reference Range: Low Risk >=60 High Risk <40LDL Cholesterol Reference Range: Optimal <100 Near Optimal 100-129 Borderline 130-159 High 160-189 Very High >=190 Supervisor Pre Wave ID Dawson MAGALLON WLACTATE DEHYDROGENASE (LDH)2020-06-22 02:16:00* Test Item Value Reference Range Interpretation Comments LACTATE DEHYDROGENASE (BEAKER) (test code = 635) 321 U/L 125-2 20 H Supervisor Pre Wave ID Dawson MAGALLON WCBC W/PLT COUNT & AUTO [id number] 01:58:00* Test Item Value Reference Range Interpretation Comments WHITE BLOOD CELL COUNT (BEAKER) (test code = 775) 4.6 K/ L 3.5- 10.5 RED BLOOD CELL COUNT (BEAKER) (test code = 761) 2.81 M/ L 4.63-6 .08 L HEMOGLOBIN (BEAKER) (test code = 410) 8.7 GM/DL 13.7-17.5 L HEMATOCRIT (BEAKER) (test code = 411) 27.8 % 40.1-51.0 L MEAN CORPUSCULAR VOLUME (BEAKER) (test code = 753) 98.9 fL 79. 0-92.2 H MEAN CORPUSCULAR HEMOGLOBIN (BEAKER) (test code = 751) 31.0 pg 25.7-32.2 MEAN CORPUSCULAR HEMOGLOBIN CONC (BEAKER) (test code = 752) 31.3 GM/DL 32.3-36.5 L RED CELL DISTRIBUTION WIDTH (BEAKER) (test code = 412) 18.2 % 11.6-14.4 H PLATELET COUNT (BEAKER) (test code = 756) 158 K/CU MM 150-450 MEAN PLATELET VOLUME (BEAKER) (test code = 754) 10.5 fL 9.4-12 .4 NUCLEATED RED BLOOD CELLS (BEAKER) (test code = 413) 1 /100 WBC 0 -0 H NEUTROPHILS RELATIVE PERCENT (BEAKER) (test code = 429) 79 % LYMPHOCYTES RELATIVE PERCENT (BEAKER) (test code = 430) 11 % MONOCYTES RELATIVE PERCENT (BEAKER) (test code = 431) 6 % EOSINOPHILS RELATIVE PERCENT (BEAKER) (test code = 432) 2 % BASOPHILS RELATIVE PERCENT (BEAKER) (test code = 437) 0 % NEUTROPHILS ABSOLUTE COUNT (BEAKER) (test code = 670) 3.63 K/ L 1.78-5.38 LYMPHOCYTES ABSOLUTE COUNT (BEAKER) (test code = 414) 0.51 K/ L 1.32-3.57 L MONOCYTES ABSOLUTE COUNT (BEAKER) (test code = 415) 0.28 K/ L 0. 30-0.82 L EOSINOPHILS ABSOLUTE COUNT (BEAKER) (test code = 416) 0.11 K/ L 0.04-0.54 BASOPHILS ABSOLUTE COUNT (BEAKER) (test code = 417) 0.01 K/ L 0. 01-0.08 IMMATURE GRANULOCYTES-RELATIVE PERCENT (BEAKER) (test code = 2801) 1 % 0-1 POCT-GLUCOSE [id number] 23:59:00* Test Item Value Reference Range Interpretation Comments POC-GLUCOSE METER (BEAKER) (test code = 1538) 99 mg/dL 70-110 : TESTED AT [facility] [address] [facility] [facility], [address]: Supervisor Pre Wave/Rail Specialist ID = [id number] for NÉSTOR MIMS Legionella antigen, [id number] 22:58:00* Test Item Value Reference Range Interpretation Comments Legionella Urine Antigen (test code = 14380-1) Negative - see comme nt Negative for L. pneumophila serogroup 1 antigen, suggesting no recent or current infection with this serogroup. Legionellosis cannot be ruled out since other serogroups and species may cause disease. [facility] CenterStrep pneumoniae [id number] 22:58:00* Test Item Value Reference Range Interpretation Comments Strep pneumoniae Antigen (test code = 89933-1) Presump tive negative for pneumococcal pneumonia - see comment Presumptive negative for pneumococcal pneumonia - see comment, Presumptive negative for pneumococcal meningitis MARCO (test code = MARCO) Presumptive negative for pne umococcal pneumonia, suggesting no current or recent pneumococcal infection. Infection due to S. pneumoniae cannot be ruled out since the antigen present in the sample may be below the detection limit of the test. Lab Interpretation (test code = 96932-0) Normal [facility] PNEUMONIAE [id number] 22:58:00* Test Item Value Reference Range Interpretation Comments STREP PNEUMONIAE ANTIGEN (BEAKER) (test code = 1615) P resumptive negative for pneumococcal pneumonia - see comment Presumptive negative for pneumococcal pneumonia - see commen Presumptive negative for pneumococcal pneumonia, suggesting no current or recent pneumococcal infection. Infection due to S. pneumoniae cannot be ruled out since the antigen present in the sample may be below the detection limit of the test. LEGIONELLA ANTIGEN, [id number] 22:58:00* Test Item Value Reference Range Interpretation Comments L. PNEUMOPHILA SEROGP 1 UR AG (BEAKER) (test code = 11 56) Negative - see comment Negative for L. pneu mophila serogroup 1 antigen, suggesting no recent or current infection with this serogroup. Legionellosis cannot be ruled out since other serogroups and species may cause disease. U/S, RENAL, [id number] 22:03:00Reason for exam:->ckdShould this be performed at the bedside?->YesFINAL REPORT Renal ultrasound dated 06/21/2020 Comment: Real-time transabdominal renal ultrasound was performed.Right kidney measures 12.6 x 4.2 x 6.1 [...] bilaterally. Impression: Bilateral renal cysts. Signed: Jimy Ruffineport Verified Date/Time: 06/21/2020 22:03:21 renal [id number] 22:03:00Interface, External Ris In - 06/21/2020 10:05 PM CDTFINAL REPORT Renal ultrasound dated 06/21/2020 Comment: Real-time transabdominal renal ultrasound was performed.Right kidney measures 12.6 x 4.2 x 6.1 [...] main renal artery and vein bilaterally. Impression: B ilateral renal cysts. Signed: Jimy Ruffin Verified Date/Time: 06/21/20 22:03:21 10: 03 PM [facility] [id number] 21:16:00* Test Item Value Reference Range Interpretation Comments Human Metapneumovirus (test code = 03492-9) Not detected Not detected, Equivocal Rhinovirus (test code = 05872-4) Not detected Not detected, Equivoc al INFLUENZA A (NO SUBTYPE) (test code = 22234-8) Not detected Not detected, Equivocal Influenza A subtype H1 (test code = 16770-3) Influenza A Subtype H3 (test code = 33248-8) Influenza A Subtype H1-2009 (test code = 04374-5) Influenza B (test code = 03947-6) Not detected Not detected, Equivo curtis Respiratory Syncytial Virus (test code = 78785-3) Not detect ed Not detected, Equivocal Parainfluenza Virus 1 (test code = 36558-4) Not detected Not detected, Equivocal Parainfluenza Virus 2 (test code = 71190-0) Not detected Not detected, Equivocal Parainfluenza virus 3 (test code = 55109-5) Not detected Not detected, Equivocal Parainfluenza Virus 4 (test code = 08451-6) Not detected Not detected, Equivocal Adenovirus (test code = 89186-2) Not detected Not detected, Equivoc al Coronavirus 229E (test code = 16821-1) Not detected Not detected, E quivocal Coronavirus HKU1 (test code = 97700-1) Not detected Not detected, E quivocal Coronavirus NL63 (test code = 00322-2) Not detected Not detected, E quivocal Coronavirus OC43 (test code = 05541-3) Not detected Not detected, E quivocal Bordetella Pertussis (test code = 49501-1) Not detected Not d etected, Equivocal Chlamydophila Pneumoniae (test code = 21054-4) Not detected Not detected, Equivocal Mycoplasma Pneumoniae (test code = 17457-2) Not detected Not detected, Equivocal MARCO (test code = MARCO) Other viruses and bacteria n ot targeted by this PCR panel cannot be excluded; therefore clinical correlation and follow up of serology, culture results, and other molecular studies is required. The results are not intended to be used as the sole means for clinical diagnosis or patient management decisions. This sample was tested at the [facility] using the [employer] Respiratory Panel. It is FDA cleared and has been verified and approved by the [facility] for clinical use on nasopharyngeal swab specimens. The performance of the FilmArray RP has not been established in individuals who received influenza vaccine. Recent administration of a nasal influenza vaccine may cause false positive results for Influenza A and/orInfluenza B. [facility] [id number] 21:16:00* Test Item Value Reference Range Interpretation Comments HUMAN METAPNEUMOVIRUS (BEAKER) (test code = 2683) Not detect ed Not detected, Equivocal RHINOVIRUS (BEAKER) (test code = 2684) Not detected Not detected, E quivocal INFLUENZA A (BEAKER) (test code = 2685) Not detected Not detected, Equivocal INFLUENZA A (NO SUBTYPE) (test code = 3606) INFLUENZA A SUBTYPE H1 (BEAKER) (test code = 2686) INFLUENZA A SUBTYPE H3 (BEAKER) (test code = 2687) INFLUENZA A SUBTYPE H1-2009 (BEAKER) (test code = 3198) INFLUENZA B (BEAKER) (test code = 2688) Not detected Not detected, Equivocal RESPIRATORY SYNCYTIAL VIRUS (BEAKER) (test code = 3199) Not detected Not detected, Equivocal PARAINFLUENZA VIRUS 1 (BEAKER) (test code = 2691) Not detect ed Not detected, Equivocal PARAINFLUENZA VIRUS 2 (BEAKER) (test code = 2692) Not detect ed Not detected, Equivocal PARAINFLUENZA VIRUS 3 (BEAKER) (test code = 2693) Not detect ed Not detected, Equivocal PARAINFLUENZA VIRUS 4 (BEAKER) (test code = 3200) Not detect ed Not detected, Equivocal ADENOVIRUS (BEAKER) (test code = 2694) Not detected Not detected, E quivocal CORONAVIRUS 229E (BEAKER) (test code = 3201) Not detected Not detected, Equivocal CORONAVIRUS HKU1 (BEAKER) (test code = 3202) Not detected Not detected, Equivocal CORONAVIRUS NL63 (BEAKER) (test code = 3203) Not detected Not detected, Equivocal CORONAVIRUS OC43 (BEAKER) (test code = 3204) Not detected Not detected, Equivocal BORDETELLA PERTUSSIS (BEAKER) (test code = 3205) Not detecte d Not detected, Equivocal CHLAMYDOPHILA PNEUMONIAE (BEAKER) (test code = 3206) Not det ected Not detected, Equivocal MYCOPLASMA PNEUMONIAE (BEAKER) (test code = 3207) Not detect ed Not detected, Equivocal Other viruses and bacteria not targeted by this PCR panel cannot be excluded; th erefore clinical correlation and follow up of serology, culture results, and ot er molecular studies is required. The results are not intended to be used as the sole means for clinical diagnosis or patient management decisions. This sample was tested at the [facility] using the [employer] FilmA rray Respiratory Panel. It is FDA cleared and has been verified and approved by the [facility] for clinical use on nasopharyngeal sw ab specimens.The performance of the FilmArray RP has not been established in ind ividuals who received influenza vaccine. Recent administration of a nasal influ kathrin vaccine may cause false positive results for Influenza A and/orInfluenza B. TSH/Free T4 If Vknmyksdl3202-11-32 20:31:00* Test Item Value Reference Range Interpretation Comments TSH (test code = 54438-3) 3.664 0.350- 4.940 uIU/mL MARCO (test code = MARCO) Supervisor Pre Wave ID - NAUN W Lab Interpretation (test code = 23375-6) [facility] IF [id number] 20:31:00* Test Item Value Reference Range Interpretation Comments THYROID STIMULATING HORMONE (BEAKER) (test code = 772) 3.664 uIU /mL 0.350-4.940 Supervisor Pre Wave ID - NAUN WRapid Influenza A&B [id number] 19:41:00* Test Item Value Reference Range Interpretation Comments Rapid Influenza A Antigen (test code = 03689-4) Negative Negative, Inconclusive Rapid influenza B Antigen (test code = 97943-3) Negative Negative, Inconclusive Lab Interpretation (test code = 32696-4) [facility] A&B [id number] 19:41:00* Test Item Value Reference Range Interpretation Comments RAPID INFLUENZA A AG (BEAKER) (test code = 1622) Negative Negative, Inconclusive RAPID INFLUENZA B AG (BEAKER) (test code = 1623) Negative Negative, Inconclusive TROPONIN [id number] 18:40:00* Test Item Value Reference Range Interpretation Comments TROPONIN I (BEAKER) (test code = 397) 0.26 ng/mL 0.00-0.03 HH Troponin I (TnI) levels must be interpreted in the context of the presenting sym ptoms and the clinical findings. Elevated TnI levels indicate myocardial damage, but are not specific for ischemic heart disease. Elevated TnI levels are seen in patients with other cardiac conditions (including myocarditis and congestive h eart failure), and slight TnI elevations occur in patients with other conditions , including sepsis, renal failure, acidosis, acute neurological disease, and per sistent tachyarrhythmia.Supervisor Pre Wave ID - NVXrxtgbpmyscrz6955-08-98 18:34:00* Test Item Value Reference Range Interpretation Comments Procalcitonin (test code = 99411-3) 0.51 ng/mL <0.05 H MARCO (test code = MARCO) SEPSIS RISK (ng/mL)Low: 0.05-0.50Intermediate: 0.51-2.00High: >=2.01 Lab Interpretation (test code = 65810-0) [facility]normal [facility] HospitalGeeykpAXHIEYXTBRVMB9548-32-93 18:34:00* Test Item Value Reference Range Interpretation Comments PROCALCITONIN (BEAKER) (test code = 3036) 0.51 ng/mL <0.05 H SEPSIS RISK (ng/mL)Low: 0.05-0.50Intermediate: 0.51-2.00High: > =2.14ACELKVWG6578-87-40 18:34:00* Test Item Value Reference Range Interpretation Comments CORTISOL, TOTAL (BEAKER) (test code = 2755) 5.9 ug/dL 3.7-19.4 Supervisor Pre Wave ID - BSUrinalysis w/Microscopic + Reflex to [id number] 18:31:00 * Test Item Value Reference Range Interpretation Comments Color, UA (test code = 5778-6) Yellow Clarity, UA (test code = 5767-9) Clear Specific Devol, UA (test code = 5811-5) 1.017 1.001-1.035 pH, UA (test code = 5803-2) 5.0 5.0-8.0 Protein, UA (test code = 75201-8) 10 mg/dL Negative A Glucose, UA (test code = 365) Negative Negative Ketones, UA (test code = 2514-8) Negative Negative Bilirubin, UA (test code = 32300-9) Negative Negative Blood, UA (test code = 50346-6) Negative Negative Nitrite, UA (test code = 5802-4) Negative Negative Leukocytes, UA (test code = 5799-2) Moderate Negative A Urobilinogen, UA (test code = 39848-6) 0.2 mg/dL 0.2-1 RBC, UA (test code = 95541-7) 1 /HPF WBC, UA (test code = 5821-4) 3 /HPF Mucus (test code = 8247-9) Rare Squam Epithel, UA (test code = 40873-3) 2 /HPF Hyaline Casts, UA (test code = 81967-4) 13 /LPF Specimen Source (test code = 2795) MARCO (test code = MARCO) Supervisor Pre Wave ID - [auto]Supervisor Pre Wave ID - tech Lab Interpretation (test code = 48820-1) [facility]normal [facility]/ REFLEX URINE [id number] 18:31:00* Test Item Value Reference Range Interpretation Comments COLOR (BEAKER) (test code = 470) Yellow CLARITY (BEAKER) (test code = 469) Clear SPECIFIC GRAVITY UA (BEAKER) (test code = 468) 1.017 1.001-1 .035 PH UA (BEAKER) (test code = 467) 5.0 5.0-8.0 PROTEIN UA (BEAKER) (test code = 464) 10 mg/dL Negative A GLUCOSE UA (BEAKER) (test code = 365) Negative Negative KETONES UA (BEAKER) (test code = 371) Negative Negative BILIRUBIN UA (BEAKER) (test code = 462) Negative Negative BLOOD UA (BEAKER) (test code = 461) Negative Negative NITRITE UA (BEAKER) (test code = 465) Negative Negative LEUKOCYTE ESTERASE UA (BEAKER) (test code = 466) Moderate Negat billy A UROBILINOGEN UA (BEAKER) (test code = 463) 0.2 mg/dL 0.2-1.0 RBC UA (BEAKER) (test code = 519) 1 /HPF WBC UA (BEAKER) (test code = 520) 3 /HPF MUCUS (BEAKER) (test code = 1574) Rare SQUAMOUS EPITHELIAL (BEAKER) (test code = 516) 2 /HPF HYALINE CASTS (BEAKER) (test code = 514) 13 /LPF SOURCE(BEAKER) (test code = 2795) Supervisor Pre Wave ID - [auto]Supervisor Pre Wave ID - techOsmolality, bhnxs7301-14-91 18:30:00* Test Item Value Reference Range Interpretation Comments Osmolality, Ur (test code = 2695-5) 374 50-1,200 mOsm/kg m Osm/kg Lab Interpretation (test code = 35845-8) Normal [facility] HospitalOSMOLALITY, [id number] 18:30:00* Test Item Value Reference Range Interpretation Comments OSMOLALITY URINE (BEAKER) (test code = 614) 374 mOsm/kg 50-1,200 m Osm/kg B-TYPE NATRIURETIC FACTOR (BNP)2020-06-21 18:26:00* Test Item Value Reference Range Interpretation Comments B-TYPE NATRIURETIC PEPTIDE (BEAKER) (test code = 700) 815 pg/mL 0-100 H Supervisor Pre Wave ID - BSSodium, random irsju3308-94-76 18:21:00* Test Item Value Reference Range Interpretation Comments Sodium Urine (test code = 2955-3) <20 meq/L MARCO (test code = MARCO) Reference Range: No NormalsOperator ID - BS [facility] RANDOM [id number] 18:21:00* Test Item Value Reference Range Interpretation Comments SODIUM URINE (BEAKER) (test code = 243) < meq/L Reference Range: No NormalsOperator ID - BSCreatinine, random lzolv9574-86-84 18:20:00* Test Item Value Reference Range Interpretation Comments Creatinine, Ur (test code = 2161-8) 144.3 mg/dL MARCO (test code = MARCO) Reference Range: No NormalsOperator ID - BS [facility] HospitalCREATININE, RANDOM [id number] 18:20:00* Test Item Value Reference Range Interpretation Comments CREATININE URINE (BEAKER) (test code = 375) 144.3 mg/dL Reference Range: No NormalsOperator ID - [id number] 18:17:00* Test Item Value Reference Range Interpretation Comments MAGNESIUM (BEAKER) (test code = 627) 2.5 mg/dL 1.6-2.6 Supervisor Pre Wave ID - BSCREATINE KINASE (CK)2020-06-21 18:17:00* Test Item Value Reference Range Interpretation Comments CREATINE KINASE TOTAL (BEAKER) (test code = 380) 83 U/L 29-20 0 Supervisor Pre Wave ID - BSCOMPREHENSIVE METABOLIC [id number] 18:17:00* Test Item Value Reference Range Interpretation Comments TOTAL PROTEIN (BEAKER) (test code = 770) 5.9 gm/dL 6.0-8.3 L ALBUMIN (BEAKER) (test code = 1145) 3.3 g/dL 3.5-5.0 L ALKALINE PHOSPHATASE (BEAKER) (test code = 346) 90 U/L 40-150 BILIRUBIN TOTAL (BEAKER) (test code = 377) 0.8 mg/dL 0.2-1.2 SODIUM (BEAKER) (test code = 381) 134 meq/L 136-145 L POTASSIUM (BEAKER) (test code = 379) 3.4 meq/L 3.5-5.1 L CHLORIDE (BEAKER) (test code = 382) 96 meq/L 98-107 L CO2 (BEAKER) (test code = 355) 26 meq/L 22-29 BLOOD UREA NITROGEN (BEAKER) (test code = 354) 87 mg/dL 7-21 H CREATININE (BEAKER) (test code = 358) 2.73 mg/dL 0.57-1.25 H GLUCOSE RANDOM (BEAKER) (test code = 652) 107 mg/dL 70-105 H CALCIUM (BEAKER) (test code = 697) 8.9 mg/dL 8.4-10.2 AST (SGOT) (BEAKER) (test code = 353) 25 U/L 5-34 ALT (SGPT) (BEAKER) (test code = 347) 32 U/L 6-55 EGFR (BEAKER) (test code = 1092) 23 mL/min/1.73 sq m ESTIMATED GFR IS NOT ACCURATE CREATININE CLEARANCE IN PREDICTING GLOMERULAR FILTRATION RATE. ESTIMATED GFR IS NOT APPLICABLE FOR DIALYSIS PATIENTS. Supervisor Pre Wave ID - BSLACTIC ACID, [id number] 18:09:00* Test Item Value Reference Range Interpretation Comments LACTATE BLOOD VENOUS (2) (BEAKER) (test code = 2872) 0.54 mmol/L 0 .50-2.20 Supervisor Pre Wave ID - [id number] 18:02:00* Test Item Value Reference Range Interpretation Comments PTT (test code = 92604-0) 49.2 22.5- 36.0 seconds H Lab Interpretation (test code = 80730-2) Abnormal [facility]APTT2020-08-26 18:02:00* Test Item Value Reference Range Interpretation Comments PARTIAL THROMBOPLASTIN TIME (BEAKER) (test code = 760) 49.2 seconds 22.5-36.0 H [id number] 18:01:00* Test Item Value Reference Range Interpretation Comments Fibrinogen (test code = 3255-7) 748 mg/dl 225-434 H Lab Interpretation (test code = 53907-7) Abnormal [facility] HospitalProthrombin time/[id number] 18:01:00* Test Item Value Reference Range Interpretation Comments Protime (test code = 5902-2) 19.8 11.9- 14.2 seconds H INR (test code = 6301-6) 1.73 <=5.90 MARCO (test code = MARCO) Effective 03/24/2019: PT Refe rence Range ChangeNew: 11.9- 14.2 Previous: 11.7-14.7 RECOMMENDED COUMADIN/WARFARIN INR THERAPY RANGESSTANDARD DOSE: 2.0-3.0 Includes: PROPHYLAXIS for venous thrombosis, sys temic embolization; TREATMENT for venous thrombosis and/or pulmonary embolus.HIGH RISK: Target INR is 2.5-3.5 for patients wiht mechanical heart valves. Lab Interpretation (test code = 61671-4) Abnormal [facility] HospitalPROTHROMBIN TIME/[id number] 18:01:00* Test Item Value Reference Range Interpretation Comments PROTIME (BEAKER) (test code = 759) 19.8 seconds 11.9-14.2 H INR (BEAKER) (test code = 370) 1.73 <=5.90 Effective 03/24/2019: PT Reference Range ChangeNew: 11.9-14.2 Previous: 11.7-14. 7RECOMMENDED COUMADIN/WARFARIN INR THERAPY RANGESSTANDARD DOSE: 2.0-3.0 Include s: PROPHYLAXIS for venous thrombosis, systemic embolization; TREATMENT for venou s thrombosis and/or pulmonary embolus.HIGH RISK: Target INR is 2.5-3.5 for patie nts wiht mechanical heart valves.[id number] 18:01:00* Test Item Value Reference Range Interpretation Comments FIBRINOGEN LEVEL (BEAKER) (test code = 658) 748 mg/dl 225-434 H BLOOD GAS, [id number] 17:48:00* Test Item Value Reference Range Interpretation Comments PH ARTERIAL (BEAKER) (test code = 383) 7.38 7.35-7.45 PCO2 ARTERIAL (BEAKER) (test code = 384) 51 mmHg 35-45 H PO2 ARTERIAL (BEAKER) (test code = 385) 130 mmHg 80-90 H O2 SATURATION ARTERIAL (BEAKER) (test code = 386) 98.6 % 96.0 -97.0 H HCO3 ARTERIAL (BEAKER) (test code = 388) 30 mmol/L 21-29 H BASE EXCESS ARTERIAL (BEAKER) (test code = 387) 3.5 mmol/L -2.0-3 .0 H PATIENT TEMPERATURE (BEAKER) (test code = 1818) 36.3 C FIO2 (BEAKER) (test code = 1819) 35.0 % CBC W/PLT COUNT & AUTO [id number] 17:46:00* Test Item Value Reference Range Interpretation Comments WHITE BLOOD CELL COUNT (BEAKER) (test code = 775) 4.7 K/ L 3.5- 10.5 RED BLOOD CELL COUNT (BEAKER) (test code = 761) 2.79 M/ L 4.63-6 .08 L HEMOGLOBIN (BEAKER) (test code = 410) 8.4 GM/DL 13.7-17.5 L HEMATOCRIT (BEAKER) (test code = 411) 27.0 % 40.1-51.0 L MEAN CORPUSCULAR VOLUME (BEAKER) (test code = 753) 96.8 fL 79. 0-92.2 H MEAN CORPUSCULAR HEMOGLOBIN (BEAKER) (test code = 751) 30.1 pg 25.7-32.2 MEAN CORPUSCULAR HEMOGLOBIN CONC (BEAKER) (test code = 752) 31.1 GM/DL 32.3-36.5 L RED CELL DISTRIBUTION WIDTH (BEAKER) (test code = 412) 17.8 % 11.6-14.4 H PLATELET COUNT (BEAKER) (test code = 756) 140 K/CU MM 150-450 L MEAN PLATELET VOLUME (BEAKER) (test code = 754) 10.1 fL 9.4-12 .4 NUCLEATED RED BLOOD CELLS (BEAKER) (test code = 413) 1 /100 WBC 0 -0 H NEUTROPHILS RELATIVE PERCENT (BEAKER) (test code = 429) 80 % LYMPHOCYTES RELATIVE PERCENT (BEAKER) (test code = 430) 11 % MONOCYTES RELATIVE PERCENT (BEAKER) (test code = 431) 6 % EOSINOPHILS RELATIVE PERCENT (BEAKER) (test code = 432) 2 % BASOPHILS RELATIVE PERCENT (BEAKER) (test code = 437) 0 % NEUTROPHILS ABSOLUTE COUNT (BEAKER) (test code = 670) 3.75 K/ L 1.78-5.38 LYMPHOCYTES ABSOLUTE COUNT (BEAKER) (test code = 414) 0.52 K/ L 1.32-3.57 L MONOCYTES ABSOLUTE COUNT (BEAKER) (test code = 415) 0.26 K/ L 0. 30-0.82 L EOSINOPHILS ABSOLUTE COUNT (BEAKER) (test code = 416) 0.07 K/ L 0.04-0.54 BASOPHILS ABSOLUTE COUNT (BEAKER) (test code = 417) 0.01 K/ L 0. 01-0.08 IMMATURE GRANULOCYTES-RELATIVE PERCENT (BEAKER) (test code = 2801) 2 % 0-1 H RAD, CHEST, 1 VIEW, NON [id number] 15:55:00Reason for exam:->sobShould this be performed at the bedside?->YesFINAL REPORT INDICATION: sob COMPARISON: None TECHNIQUE: Single frontal view of the chest. FINDINGS: Lungs and pleura: Platelike atelectasis within the left lower lung No effusion.Heart and mediastinum: Normal heart size. Unremarkable mediastinal contours.Osseous structures: No acute abnormality.Other: None. Signed: Partha Montes MDReport Verified Date/Time: 06/21/2020 15:55:00 Reading Location: [facility] Radiology Reading Room ABDOMEN/PELVIS [id number] 10:29:00 [place] [address] Patient Name: STEVE BENEDICT MR #: [id number] : 1945 Age/Sex: 74/M Req #: [id number] Adm Physician: Ordered by: IBAN RAMOS MD Report #: [id number] Location: Room/Bed: Procedure: [id number] CT/CT ABDOMEN/ PELVIS WO Exam Date: 06/21/20 Exam Time: 0950 REPORT STATUS: Signed EXAM: CT Abdomen and Pelvis WITHOUT intravenous contrast INDICATION: Fall, tremors C OMPARISON: Chest radiograph of the same day TECHNIQUE: Abdomen and pelvis w ere scanned utilizing a multidetector helical scanner from the lung base to th e pubic symphysis without administration of IV contrast. Coronal and sagittal reformations were obtained. IV CONTRAST: None ORAL CONTRAST: Water COMPLICATIONS: None RADIATION DOSE: Total DLP: 790 mGy* cm Dose modulation, iterative reconstruction, and/or weight based adjustmen t of the mA/kV was utilized to reduce the radiation dose to as low as reasonab ly achievable. FINDINGS: LOWER THORAX: Bibasilar subsegmental atelecta sis. No focal lung base consolidation. HEPATOBILIARY: Mildly nodular live r surface contour. No focal liver lesion. Mild gallbladder distention. No CT e vidence of cholelithiasis or cholecystitis. SPLEEN: Splenomegaly to 16.4 cm . PANCREAS: No focal masses or ductal dilatation. ADRENALS: No adrenal nodules. KIDNEYS/URETERS: No hydronephrosis or renal calculi. Bilateral exoph ytic renal lesions measure up to 3.5 cm on the left and 3.0 cm on the right an d statistically most likely represent cysts however characterization by atte nuation is distorted by severe streak artifact related to patient body habitus and contact with the gantry. PELVIC ORGANS/BLADDER: Unremarkable. PERITO NEUM / RETROPERITONEUM: No free air or fluid. LYMPH NODES: No lymphadenopathy. VESSELS: Moderate atherosclerotic calcifications of the nonaneurysmal abdomin al aorta and major branches. GI TRACT: Severe diverticulosis. No CT evide nce of diverticulitis. No abnormal bowel thickening. No bowel obstruction. Pro minent stool burden throughout the colon. BONES AND SOFT TISSUES: No acut e osseous injury. No suspicious lytic or blastic lesions. Degenerative changes of the visualized spine. IMPRESSION: No acute findings in the abdomen o r pelvis. Mildly nodular liver surface contour compatible with early cirrho sis. Splenomegaly to 16.[address] evidence of diver ticulitis. Prominent stool burden throughout the colon can be seen in the s etting of constipation. Signed by: Santino Houser MD on 06/21/2020 10:37 A M Dictated By: SANTINO HOUSER MD 1037 Transcribed By: ERAN on 06/21/20 1037 COPY TO: Jeniffer RAMOS MD CHEST SINGLE (PORTABLE)2020-06-21 10:26:00 [place] [address] Patient Name: STEVE BENEDICT MR #: [id number] : 1945 Age/Sex: 74/M Req #: [id number] Adm Physician: Ordered by: IBAN RAMOS MD Report #: [id number] Location: ER Room/Bed: Procedure: [id number] DX/CHEST SINGL E (PORTABLE) Exam Date: 06/21/20 Exam Time: 0950 REPORT STATUS: Signed EXAMINATION: CHEST SINGLE (PORTABLE) INDICATION: COPD, shortness of breath COM PARISON: Chest radiograph of 06/19/2020 FINDINGS: LINES/TUBES:EKG leads overlie the chest. LUNGS:The lungs are well-inflated. Hazy peripheral right mid lung opacity, new compared to 06/19/2020. Scattered patchy opacities in the left lung appear unchanged. PLEURA:No pleural effusion or pneumot horax. MEDIASTINUM:The cardiomediastinal silhouette appears unchanged in si ze and shape, magnified by portable technique. BONES/SOFT TISSUES:No acut e osseous injury. Partially visualized cervical spine fusion hardware. AB DOMEN:No free air under the diaphragm. IMPRESSION: New hazy lateral r ight midlung opacity may represent pneumonia in the proper clinical setting. U nchanged left lower lung subsegmental atelectasis. Signed by: Lela Le on 06/21/2020 10:29 AM Dictated By: SANTINO HOUSER MD 1029 Transcribed By: ERAN on 06/21/20 1029 COPY TO: IBAN RAMOS MD Fluoroscopic procedure less than one hour [id number] 10:00:00* Test Item Value Reference Range Interpretation Comments Coronavirus (PCR) (test code = Coronavirus (PCR)) NOT DETECTED NOTD ETECTED SARS-COV2/RT-PCR CEPHEIDResults are for the detection of SARS-COV-2 RNA. The CARA S-COV-2 RNA is generally detectable in nasopharyngeal swab specimens during the acute phase of infection. Positive results are indicitive of active infection wi SARS-COV-2; clinical correlation with patient history and other diagnostic in formation is necessary to determine patient infection status. Positive results d o not rule out bacterial infection or co-infection with other viruses. The agent detected may not be the definite cause of the disease.The limit of detection fo r this assay is 250 copies/mLThe SARS-CoV-2 test is a rapid, real-time RT-PCR [facility] intended for the qualitative detection of nucleic acid from SARS-CoV-2 in ariane opharyngeal swab specimen collected from individuals suspected of COVID-19 by eir healthcare provider. This test has not been Food and Drug Administration (FD A) cleared or approved and has been authorized by FDA under an Emergency Use Aut horization (EUA). This EUA will be effective until the declaration that circumst ances exist justifying the authorization of the emergency use of in vitro diagno stic test for detection and or diagnosis of COVID-19 is terminated under section 564(b) of the Act, or the the EUA is revoked under 564(g) of the ACT.[facility] CenterBlood leukocytes automated count (number/volume) 2020-06-21 08:55:00* Test Item Value Reference Range Interpretation Comments White Blood Count (test code = 6690-2) 5.56 4.8-10.8 [facility] erythrocytes automated count (number/volume)2020-06-21 08:55:00* Test Item Value Reference Range Interpretation Comments Red Blood Count (test code = 789-8) 2.93 4.3-5.7 [facility] CenterBlood hemoglobin measurement (moles/volume)2020-06-21 08:55:00* Test Item Value Reference Range Interpretation Comments Hemoglobin (test code = 66608-6) 8.7 14.0-18.0 [facility] CenterAutomated blood hematocrit (volume fraction)2020-06-21 08:55:00* Test Item Value Reference Range Interpretation Comments Hematocrit (test code = 4544-3) 28.1 38.2-49.6 [facility] CenterAutomated erythrocyte mean corpuscular [id number] 08:55:00* Test Item Value Reference Range Interpretation Comments Mean Corpuscular Volume (test code = 787-2) 95.9 81-99 [facility] CenterAutomated erythrocyte mean corpuscular hemoglobin (mass per erythrocyte)2020-06-21 08:55:00* Test Item Value Reference Range Interpretation Comments Mean Corpuscular Hemoglobin (test code = 785-6) 29.7 28-32 [facility] CenterAutomated erythrocyte mean corpuscular hemoglobin concentration measurement (mass/volume)2020-06-21 08:55:00* Test Item Value Reference Range Interpretation Comments Mean Corpuscular Hemoglobin Concent (test code = 786-4) 31.0 31-35 [facility] CenterRDW LqiHf-Dfh1687-23-26 08:55:00* Test Item Value Reference Range Interpretation Comments Red Cell Distribution Width (test code = 25059-3) 17.7 11.7 -14.4 [facility] CenterAutomated blood platelet count (count/volume)2020-06-21 08:55:00* Test Item Value Reference Range Interpretation Comments Platelet Count (test code = 777-3) 147 140-360 [facility] CenterAutomated blood segmented neutrophil count as percentage of total gtvqborcrw7625-41-93 08:55:00* Test Item Value Reference Range Interpretation Comments Neutrophils (%) (Auto) (test code = 26023-6) 81.1 38.7-80.0 [facility] CenterAutomated blood lymphocyte count as percentage ot total mfvhntlqkn2819-15-31 08:55:00* Test Item Value Reference Range Interpretation Comments Lymphocytes (%) (Auto) (test code = 736-9) 11.0 18.0-39.1 [facility] CenterAutomated blood monocyte count as percentage of total hhbmtvcgxx2463-56-02 08:55:00* Test Item Value Reference Range Interpretation Comments Monocytes (%) (Auto) (test code = 5905-5) 5.2 4.4-11.3 [facility] as percentage of total xdhqubozfd9270-66-23 08:55:00* Test Item Value Reference Range Interpretation Comments Eosinophils (%) (Auto) (test code = 713-8) 0.7 0.0-6.0 [facility] CenterAutomated blood basophil count as percentage of total scydmuhzzy0475-63-12 08:55:00* Test Item Value Reference Range Interpretation Comments Basophils (%) (Auto) (test code = 706-2) 0.2 0.0-1.0 [facility] CenterFluoroscopic procedure less than one hour iuuxcrdp3571-45-76 08:55:00* Test Item Value Reference Range Interpretation Comments IM GRANULOCYTES % (test code = IM GRANULOCYTES %) 1.8 0.0- 1.0 [facility] CenterAutomated blood neutrophil count 2020-06-21 08:55:00* Test Item Value Reference Range Interpretation Comments Neutrophils # (Auto) (test code = 751-8) 4.5 2.1-6.9 [facility] CenterBlood lymphocytes count (number/volume) 2020-06-21 08:55:00* Test Item Value Reference Range Interpretation Comments Lymphocytes # (Auto) (test code = 50613-4) 0.6 1.0-3.2 [facility] CenterBlood monocytes automated count (number/volume)2020-06-21 08:55:00* Test Item Value Reference Range Interpretation Comments Monocytes # (Auto) (test code = 742-7) 0.3 0.2-0.8 [facility] CenterAutomated blood eosinophil count 2020-06-21 08:55:00* Test Item Value Reference Range Interpretation Comments Eosinophils # (Auto) (test code = 711-2) 0.0 0.0-0.4 [facility] CenterAutomated blood basophil count (count/volume)2020-06-21 08:55:00* Test Item Value Reference Range Interpretation Comments Basophils # (Auto) (test code = 704-7) 0.0 0.0-0.1 [facility] CenterFluoroscopic procedure less than one hour zelbjghe0697-09-76 08:55:00* Test Item Value Reference Range Interpretation Comments Absolute Immature Granulocyte (auto (bharat t code = Absolute Immature Granulocyte (auto) 0.10 0-0.1 [facility] CenterProthrombin time (PT) in platelet poor plasma by coagulation swhvz8126-06-22 08:55:00* Test Item Value Reference Range Interpretation Comments Prothrombin Time (test code = 5902-2) 20.9 11.9-14.5 [facility] CenterINR in Platelet poor plasma by Coagulation ratmp1347-56-26 08:55:00* Test Item Value Reference Range Interpretation Comments Prothromb Time International Ratio (test code = 6301-6) 1.69 Oral Anticoagulant Therapy INR Values:1. Low Intensity Therapy 1.5 - 2.02 . Moderate Intensity Therapy 2.0 - 3.03. High Intensity Therapy(1) 2.5 - 3. 54. High Intensity Therapy(2) 3.0 - 4.05. Panic Value INR > 5.0 [facility] CenterActivated partial thromboplastin time (aPTT) in platelet poor plasma by coagulation qhzqs4978-89-54 08:55:00* Test Item Value Reference Range Interpretation Comments Activated Partial Thromboplast Time (test code = 11385-7) 51.8 23.8-35.5 [facility] sodium measurement (moles/volume)2020-06-21 08:55:00* Test Item Value Reference Range Interpretation Comments Sodium Level (test code = 2951-2) 136 136-145 [facility] Hospitalerum or plasma potassium measurement (moles/volume)2020-06-21 08:55:00* Test Item Value Reference Range Interpretation Comments Potassium Level (test code = 2823-3) 4.0 3.5-5.1 [facility] Hospitalerum or plasma chloride measurement (moles/volume)2020-06-21 08:55:00* Test Item Value Reference Range Interpretation Comments Chloride Level (test code = 2075-0) 95 98-107 [facility] Hospitalerum or plasma carbon dioxide, total measurement (moles/volume)2020-06-21 08:55:00* Test Item Value Reference Range Interpretation Comments Carbon Dioxide Level (test code = 2028-9) 26 22-29 [facility] Hospitalerum or plasma anion xwh1029-94-41 08:55:00* Test Item Value Reference Range Interpretation Comments Anion Gap (test code = 22238-3) 19.0 8-16 [facility] Hospitalerum or plasma urea nitrogen measurement (mass/volume)2020-06-21 08:55:00* Test Item Value Reference Range Interpretation Comments Blood Urea Nitrogen (test code = 3094-0) 84 7-26 [facility] Hospitalerum or plasma creatinine measurement (mass/volume)2020-06-21 08:55:00* Test Item Value Reference Range Interpretation Comments Creatinine (test code = 2160-0) 2.89 0.72-1.25 [facility] Hospitalerum or plasma urea nitrogen/creatinine mass rdjox1632-18-96 08:55:00* Test Item Value Reference Range Interpretation Comments BUN/Creatinine Ratio (test code = 3097-3) 29 6-25 [facility] CenterEstimated glomerular filtration rate (GFR) yjxdswllwchwm7553-53-97 08:55:00* Test Item Value Reference Range Interpretation Comments Estimat Glomerular Filtration Rate (test code = 779988775) 21 >60 Ranges were taken from the National Kidney Disease Education Program and the [place] [facility] [employer] literature.Reference ranges:60 or greater: Vvtqwq69-95 ( for 3 consecutive months): Chronic kidney disease 15 or less: Kidney failureHCA [facility] Healthcare Medical CenterGlucose befgsmxtfia5267-96-62 08:55:00* Test Item Value Reference Range Interpretation Comments Glucose Level (test code = YDZ2372) 152 74-118 [facility] Hospitalerum or plasma calcium measurement (mass/volume)2020-06-21 08:55:00* Test Item Value Reference Range Interpretation Comments Calcium Level (test code = 66977-2) 9.0 8.4-10.2 [facility] CenterFluoroscopic procedure less than one hour igbdjamf7607-23-21 08:55:00* Test Item Value Reference Range Interpretation Comments Lactic Acid Level (test code = Lactic Acid Level) 1.0 0.5- 2.0 [facility] Hospitalerum or plasma magnesium measurement (mass/volume)2020-06-21 08:55:00* Test Item Value Reference Range Interpretation Comments Magnesium Level (test code = 88483-2) 2.4 1.3-2.1 [facility] Hospitalerum or plasma total bilirubin measurement (mass/volume)2020-06-21 08:55:00* Test Item Value Reference Range Interpretation Comments Total Bilirubin (test code = 1975-2) 0.9 0.2-1.2 [facility] CenterFluoroscopic procedure less than one hour gnfpdkjm4019-05-88 08:55:00* Test Item Value Reference Range Interpretation Comments Aspartate Amino Transf (AST/SGOT) (test code = Aspartate Amino Transf (AST/SGOT)) 33 5-34 [facility] Hospitalerum or plasma alanine aminotransferase measurement (enzymatic activity/volume)2020-06-21 08:55:00* Test Item Value Reference Range Interpretation Comments Alanine Aminotransferase (ALT/SGPT) (test code = 1742-6) 36 0-55 [facility] Hospitalerum or plasma protein measurement (mass/volume)2020-06-21 08:55:00* Test Item Value Reference Range Interpretation Comments Total Protein (test code = 2885-2) 6.1 6.5-8.1 [facility] Hospitalerum or plasma albumin measurement (mass/volume)2020-06-21 08:55:00* Test Item Value Reference Range Interpretation Comments Albumin (test code = 1751-7) 2.7 3.5-5.0 [facility] CenterPlasma globulin measurement (mass/volume) 2020-06-21 08:55:00* Test Item Value Reference Range Interpretation Comments Globulin (test code = 60222-5) 3.4 2.3-3.5 [facility] Hospitalerum or plasma albumin/globulin mass egqgz7831-81-46 08:55:00* Test Item Value Reference Range Interpretation Comments Albumin/Globulin Ratio (test code = 1759-0) 0.8 0.8-2.0 [facility] Hospitalerum or plasma alkaline phosphatase measurement (enzymatic activity/volume)2020-06-21 08:55:00* Test Item Value Reference Range Interpretation Comments Alkaline Phosphatase (test code = 6768-6) 95 40-150 [facility] CenterBNP Pwn-wKqf1248-66-26 08:55:00* Test Item Value Reference Range Interpretation Comments B-Type Natriuretic Peptide (test code = 36493-0) 678.1 0-100 [facility] Hospitalerum or plasma creatine kinase measurement (enzymatic activity/volume)2020-06-21 08:55:00* Test Item Value Reference Range Interpretation Comments Creatine Kinase (test code = 2157-6) 104 30-200 [facility] Hospitalerum or plasma creatine kinase MB measurement (mass/volume)2020-06-21 08:55:00* Test Item Value Reference Range Interpretation Comments Creatine Kinase MB (test code = 07770-4) 6.60 0-5.0 [facility] CenterTroponin I measurement by highly sensitive enzyme qyuxqenjvfw8902-95-52 08:55:00* Test Item Value Reference Range Interpretation Comments Troponin I (test code = 07230-1) 0.250 0-0.300 [facility] CenterCapillary blood glucose measurement by glucometer (mass/volume)2020-06-20 15:13:00* Test Item Value Reference Range Interpretation Comments Bedside Glucose (test code = 03686-9) 143 70-120 Meter ID: [id number] [facility] Healthcare Medical CenterCapillary blood glucose measurement by glucometer (mass/volume)2020-06-20 15:13:00* Test Item Value Reference Range Interpretation Comments Bedside Glucose (test code = 49679-7) 143 70-120 Meter ID: [id number] [facility] Healthcare Medical CenterBlood leukocytes automated count (number/volume)2020-06-20 05:55:00* Test Item Value Reference Range Interpretation Comments White Blood Count (test code = 6690-2) 4.68 4.8-10.8 [facility] CenterBlsandstone [facility] erythrocytes automated count (number/volume)2020-06-20 05:55:00* Test Item Value Reference Range Interpretation Comments Red Blood Count (test code = 789-8) 3.20 4.3-5.7 [facility] CenterBlood hemoglobin measurement (moles/volume)2020-06-20 05:55:00* Test Item Value Reference Range Interpretation Comments Hemoglobin (test code = 14108-2) 9.3 14.0-18.0 [facility] CenterAutomated blood hematocrit (volume fraction)2020-06-20 05:55:00* Test Item Value Reference Range Interpretation Comments Hematocrit (test code = 4544-3) 30.9 38.2-49.6 [facility] CenterAutomated erythrocyte mean corpuscular fefxnn9736-56-24 05:55:00* Test Item Value Reference Range Interpretation Comments Mean Corpuscular Volume (test code = 787-2) 96.6 81-99 [facility] CenterAutomated erythrocyte mean corpuscular hemoglobin (mass per erythrocyte)2020-06-20 05:55:00* Test Item Value Reference Range Interpretation Comments Mean Corpuscular Hemoglobin (test code = 785-6) 29.1 28-32 [facility] CenterAutomated erythrocyte mean corpuscular hemoglobin concentration measurement (mass/volume)2020-06-20 05:55:00* Test Item Value Reference Range Interpretation Comments Mean Corpuscular Hemoglobin Concent (test code = 786-4) 30.1 31-35 [facility] CenterRDW IkfXu-Pdp3950-69-25 05:55:00* Test Item Value Reference Range Interpretation Comments Red Cell Distribution Width (test code = 13725-1) 17.6 11.7 -14.4 [facility] CenterAutomated blood platelet count (count/volume)2020-06-20 05:55:00* Test Item Value Reference Range Interpretation Comments Platelet Count (test code = 777-3) 153 140-360 [facility] CenterAutomated blood segmented neutrophil count as percentage of total rtnqxwnnih3694-91-19 05:55:00* Test Item Value Reference Range Interpretation Comments Neutrophils (%) (Auto) (test code = 34632-5) 75.7 38.7-80.0 [facility] CenterAutomated blood lymphocyte count as percentage ot total pywstojyxr9057-27-92 05:55:00* Test Item Value Reference Range Interpretation Comments Lymphocytes (%) (Auto) (test code = 736-9) 12.6 18.0-39.1 [facility] CenterAutomated blood monocyte count as percentage of total vuuqgogbjd0171-96-41 05:55:00* Test Item Value Reference Range Interpretation Comments Monocytes (%) (Auto) (test code = 5905-5) 7.7 4.4-11.3 [facility] CenterAutomated blood eosinophil count as percentage of total xeppsbulbj4774-81-41 05:55:00* Test Item Value Reference Range Interpretation Comments Eosinophils (%) (Auto) (test code = 713-8) 1.9 0.0-6.0 [facility] CenterAutomated blood basophil count as percentage of total ijtkaydkow7947-10-81 05:55:00* Test Item Value Reference Range Interpretation Comments Basophils (%) (Auto) (test code = 706-2) 0.4 0.0-1.0 [facility] CenterFluoroscopic procedure less than one hour gvfzhhkc7684-55-43 05:55:00* Test Item Value Reference Range Interpretation Comments IM GRANULOCYTES % (test code = IM GRANULOCYTES %) 1.7 0.0- 1.0 [facility] CenterAutomated blood neutrophil count 2020-06-20 05:55:00* Test Item Value Reference Range Interpretation Comments Neutrophils # (Auto) (test code = 751-8) 3.5 2.1-6.9 [facility] CenterBlood lymphocytes count (number/volume) 2020-06-20 05:55:00* Test Item Value Reference Range Interpretation Comments Lymphocytes # (Auto) (test code = 05932-2) 0.6 1.0-3.2 [facility] CenterBlood monocytes automated count (number/volume)2020-06-20 05:55:00* Test Item Value Reference Range Interpretation Comments Monocytes # (Auto) (test code = 742-7) 0.4 0.2-0.8 [facility] CenterAutomated blood eosinophil count 2020-06-20 05:55:00* Test Item Value Reference Range Interpretation Comments Eosinophils # (Auto) (test code = 711-2) 0.1 0.0-0.4 [facility] CenterAutomated blood basophil count (count/volume)2020-06-20 05:55:00* Test Item Value Reference Range Interpretation Comments Basophils # (Auto) (test code = 704-7) 0.0 0.0-0.1 [facility] CenterFluoroscopic procedure less than one hour udrjquuf7090-69-29 05:55:00* Test Item Value Reference Range Interpretation Comments Absolute Immature Granulocyte (auto (bharat t code = Absolute Immature Granulocyte (auto) 0.08 0-0.1 [facility] Hospitalerum or plasma sodium measurement (moles/volume)2020-06-20 05:55:00* Test Item Value Reference Range Interpretation Comments Sodium Level (test code = 2951-2) 136 136-145 [facility] Hospitalerum or plasma potassium measurement (moles/volume)2020-06-20 05:55:00* Test Item Value Reference Range Interpretation Comments Potassium Level (test code = 2823-3) 3.4 3.5-5.1 [facility] Hospitalerum or plasma chloride measurement (moles/volume)2020-06-20 05:55:00* Test Item Value Reference Range Interpretation Comments Chloride Level (test code = 2075-0) 93 98-107 [facility] Hospitalerum or plasma carbon dioxide, total measurement (moles/volume)2020-06-20 05:55:00* Test Item Value Reference Range Interpretation Comments Carbon Dioxide Level (test code = 2028-9) 28 22-29 [facility] Hospitalerum or plasma anion bfg8896-55-24 05:55:00* Test Item Value Reference Range Interpretation Comments Anion Gap (test code = 18352-3) 18.4 8-16 [facility] Hospitalerum or plasma urea nitrogen measurement (mass/volume)2020-06-20 05:55:00* Test Item Value Reference Range Interpretation Comments Blood Urea Nitrogen (test code = 3094-0) 70 7-26 [facility] Hospitalerum or plasma creatinine measurement (mass/volume)2020-06-20 05:55:00* Test Item Value Reference Range Interpretation Comments Creatinine (test code = 2160-0) 2.43 0.72-1.25 [facility] Hospitalerum or plasma urea nitrogen/creatinine mass rtpex9905-77-11 05:55:00* Test Item Value Reference Range Interpretation Comments BUN/Creatinine Ratio (test code = 3097-3) 29 6-25 [facility] CenterEstimated glomerular filtration rate (GFR) espyxyznonspr0488-09-96 05:55:00* Test Item Value Reference Range Interpretation Comments Estimat Glomerular Filtration Rate (test code = 759857479) 26 >60 Ranges were taken from the National Kidney Disease Education Program and the [facility] Kidney Foundation literature.Reference ranges:60 or greater: Dzmuds52-82 ( for 3 consecutive months): Chronic kidney disease 15 or less: Kidney failureHCA [facility] Healthcare Medical CenterGlucose vxgaihgkucu5134-35-56 05:55:00* Test Item Value Reference Range Interpretation Comments Glucose Level (test code = AFG1786) 93 74-118 [facility] Hospitalerum or plasma calcium measurement (mass/volume)2020-06-20 05:55:00* Test Item Value Reference Range Interpretation Comments Calcium Level (test code = 72879-8) 9.4 8.4-10.2 [facility] CenterRandom serum or plasma vancomycin measurement (mass/volume)2020-06-19 15:35:00* Test Item Value Reference Range Interpretation Comments Random Vancomycin Level (test code = 56310-7) 14.1 [facility] CenterRanssm health [facility] serum or plasma vancomycin measurement (mass/volume)2020-06-19 15:35:00* Test Item Value Reference Range Interpretation Comments Random Vancomycin Level (test code = 44006-3) 14.1 [facility] CenterCHES SINGLE (PORTABLE)2020-06-19 08:35:00 [place] [address] Patient Name: STEVE BENEDICT MR #: [id number] : 1945 Age/Sex: 74/M Req #: [id number] Adm Physician: ROSALIE MEDINA MD Ordered by: ROSALIE MEDINA MD Report #: [id number] Location: MED/SURG3 Room/Bed: [facility] Procedure: [id number] DX/CHEST SINGL E (PORTABLE) Exam Date: 06/19/20 Exam Time: 0604 REPORT STATUS: Signed TECHNIQUE: Fr ontal view of the chest. INDICATION: [id number] [id number] NAZANIN RISON: 06/12/2020 DISCUSSION: Limited evaluation [...] By: ERAN on 06/19/20835 COPY TO: ROSALIE MEDINA MD Serum or plasma total bilirubin measurement (mass/volume)2020-06-19 04:15:00* Test Item Value Reference Range Interpretation Comments Total Bilirubin (test code = 1975-2) 0.9 0.2-1.2 [facility] CenterFluoroscopic procedure less than one hour rrwlfagk0505-81-46 04:15:00* Test Item Value Reference Range Interpretation Comments Aspartate Amino Transf (AST/SGOT) (test code = Aspartate Amino Transf (AST/SGOT)) 28 5-34 [facility] Hospitalerum or plasma alanine aminotransferase measurement (enzymatic activity/volume)2020-06-19 04:15:00* Test Item Value Reference Range Interpretation Comments Alanine Aminotransferase (ALT/SGPT) (test code = 1742-6) 22 0-55 [facility] Hospitalerum or plasma protein measurement (mass/volume)2020-06-19 04:15:00* Test Item Value Reference Range Interpretation Comments Total Protein (test code = 2885-2) 6.2 6.5-8.1 [facility] Hospitalerum or plasma albumin measurement (mass/volume)2020-06-19 04:15:00* Test Item Value Reference Range Interpretation Comments Albumin (test code = 1751-7) 2.8 3.5-5.0 [facility] CenterPlasma globulin measurement (mass/volume) 2020-06-19 04:15:00* Test Item Value Reference Range Interpretation Comments Globulin (test code = 97538-9) 3.4 2.3-3.5 [facility] Hospitalerum or plasma albumin/globulin mass smbsr3474-55-74 04:15:00* Test Item Value Reference Range Interpretation Comments Albumin/Globulin Ratio (test code = 1759-0) 0.8 0.8-2.0 [facility] Hospitalerum or plasma alkaline phosphatase measurement (enzymatic activity/volume)2020-06-19 04:15:00* Test Item Value Reference Range Interpretation Comments Alkaline Phosphatase (test code = 6768-6) 60 40-150 [facility] D[facility]-nVhq7054-71-24 04:15:00* Test Item Value Reference Range Interpretation Comments B-Type Natriuretic Peptide (test code = 04863-2) 339.0 0-100 [facility] Hospitalerum or plasma trough vancomycin level at trough (mass/volume)2020-06-17 22:00:00* Test Item Value Reference Range Interpretation Comments Vancomycin Level Trough (test code = 4092-3) 21.6 5.0-10.0 Results repeated and called to hardy yost at 2301 on 06/17/20 by Sadi Parish. Re ad back and verified.[facility] Hospitalerum or plasma trough vancomycin level at trough (mass/volume)2020-06-17 22:00:00* Test Item Value Reference Range Interpretation Comments Vancomycin Level Trough (test code = 4092-3) 21.6 5.0-10.0 Results repeated and called to hardy yost at 2301 on 06/17/20 by Sadi Parish. Re ad back and verified.[facility] Hospitalerum or plasma magnesium measurement (mass/volume)2020-06-16 08:48:00* Test Item Value Reference Range Interpretation Comments Magnesium Level (test code = 91924-9) 2.1 1.3-2.1 [facility] Hospitalerum or plasma cyclic citrullinated peptide IgA+IgG antibody assay by immunoassay (units/volume)2020-06-15 05:50:00 * Test Item Value Reference Range Interpretation Comments Cyclic Citrullinated Peptide IgG Ab (test code = 74407-6) 11 0-19 Negative <20 Weak positive 20 - 39 Moderate positive 40 - 59 Strong positive >59Performed at: [address] [id number] Director: Charanjit Godwin MD, Phone: [phone] Pinto General Hospitalerum or plasma cyclic citrullinated peptide IgA+IgG antibody assay by immunoassay (units/volume)2020-06-15 05:50:00* Test Item Value Reference Range Interpretation Comments Cyclic Citrullinated Peptide IgG Ab (test code = 55150-6) 11 0-19 Negative <20 Weak positive 20 - 39 Moderate positive 40 - 59 Strong positive >59Performed at: [facility] [id number] Director: Charanjit Godwin MD, Phone: [phone] Pinto General Hospitalerum or plasma triiodothyronine (T3) free measurement (mass/volume)2020-06-14 15:09:00* Test Item Value Reference Range Interpretation Comments Free Triiodothyronine (test code = 3051-0) 1.9 2.0-4.4 Performed at: [facility] [id number] Director: Tito Rodriguez MD, Phone: [phone] Pinto General Hospitalerum or plasma thyroperoxidase antibody assay (units/volume)2020-06-14 15:09:00* Test Item Value Reference Range Interpretation Comments Thyroid Peroxidase Antibodies (test code = 8099-4) 11 0-3 4 [facility] Hospitalerum or plasma triiodothyronine (T3) free measurement (mass/volume)2020-06-14 15:09:00* Test Item Value Reference Range Interpretation Comments Free Triiodothyronine (test code = 3051-0) 1.9 2.0-4.4 Performed at: [facility] [id number] Director: Tito Rodriguez MD, Phone: [phone] Pinto General Hospitalerum or plasma thyroperoxidase antibody assay (units/volume)2020-06-14 15:09:00* Test Item Value Reference Range Interpretation Comments Thyroid Peroxidase Antibodies (test code = 8099-4) 11 0-3 4 [facility] CenterFluoroscopic procedure less than one hour hsvafxaa4308-24-35 06:06:00* Test Item Value Reference Range Interpretation Comments Hemoglobin A1c Percent (test code = Hemoglobin A1c Percent) 6.2 4.0-7.0 [facility] CenterPhosphorus kvhsqpmqcpc3747-23-26 06:06:00 * Test Item Value Reference Range Interpretation Comments Phosphorus Level (test code = BVR7994) 3.4 2.3-4.7 [facility] Hospitalerum or plasma thyroxine (T4) free measurement (mass/volume)2020-06-14 06:06:00* Test Item Value Reference Range Interpretation Comments Free Thyroxine (test code = 3024-7) 0.71 0.8-1.8 [facility] Hospitalerum or plasma thyrotropin measurement by detection limit <= 0.005 miu/l (units/volume)2020-06-14 06:06:00* Test Item Value Reference Range Interpretation Comments Thyroid Stimulating Hormone (TSH) (test code = 83635-1) 2.636 0.350-4.940 [facility] Hospitalerum or plasma intact pararthyroid hormone measurement (mass/volume)2020-06-14 06:06:00* Test Item Value Reference Range Interpretation Comments Parathyroid Hormone (test code = 2731-8) 53 15-65 [facility] Hospitalerum or plasma calcium measurement (mass/volume)2020-06-14 06:06:00* Test Item Value Reference Range Interpretation Comments Calcium (Send out) (test code = 68464-3) 9.0 8.6-10.2 [facility] CenterFluoroscopic procedure less than one hour ihlfzznm7551-02-19 06:06:00* Test Item Value Reference Range Interpretation Comments Parathyroid Hormone Interpretation (test code = Parathyroid Hormone Interpretation) Comment . Interpretation Intact PTH Calcium (pg/mL) (mg/dL)Normal 15 - 65 8.6 - 10.2Pr imary Hyperparathyroidism >65 >10.2Secondary Hyperparathyroidism >65 <10.2Non-Parathyroid Hypercalcemia <65 >10.2Hypoparathyroidism <15 < 8.6Non- Parathyroid Hypocalcemia 15 - 65 < 8.6Performed at: - [facility] [address] [id number] Director: Tito Rodriguez MD, Phone: [phone] at: - [facility] [id number] Director: Charanjit Godwin MD, Phone: [phone] [facility] Healthcare Medical CenterFluoroscopic procedure less than one hour mykqymis5853-76-43 06:06:00* Test Item Value Reference Range Interpretation Comments Hemoglobin A1c Percent (test code = Hemoglobin A1c Percent) 6.2 4.0-7.0 [facility] CenterPhosphorus tpzefacqlzf0388-88-13 06:06:00 * Test Item Value Reference Range Interpretation Comments Phosphorus Level (test code = PKX3068) 3.4 2.3-4.7 [facility] Hospitalerum or plasma thyroxine (T4) free measurement (mass/volume)2020-06-14 06:06:00* Test Item Value Reference Range Interpretation Comments Free Thyroxine (test code = 3024-7) 0.71 0.8-1.8 [facility] Hospitalerum or plasma thyrotropin measurement by detection limit <= 0.005 miu/l (units/volume)2020-06-14 06:06:00* Test Item Value Reference Range Interpretation Comments Thyroid Stimulating Hormone (TSH) (test code = 94260-4) 2.636 0.350-4.940 [facility] Hospitalerum or plasma intact pararthyroid hormone measurement (mass/volume)2020-06-14 06:06:00* Test Item Value Reference Range Interpretation Comments Parathyroid Hormone (test code = 2731-8) 53 15-65 [facility] calcium measurement (mass/volume)2020-06-14 06:06:00* Test Item Value Reference Range Interpretation Comments Calcium (Send out) (test code = 62148-6) 9.0 8.6-10.2 [facility] CenterFluoroscopic procedure less than one hour gmdtbyrv6840-69-34 06:06:00* Test Item Value Reference Range Interpretation Comments Parathyroid Hormone Interpretation (test code = Parathyroid Hormone Interpretation) Comment . Interpretation Intact PTH Calcium (pg/mL) (mg/dL)Normal 15 - 65 8.6 - 10.2Pr imary Hyperparathyroidism >65 >10.2Secondary Hyperparathyroidism >65 <10.2Non-Parathyroid Hypercalcemia <65 >10.2Hypoparathyroidism <15 < 8.6Non- Parathyroid Hypocalcemia 15 - 65 < 8.6Performed at: [facility] [id number] Director: Tito Rodriguez MD, Phone: [phone] at: BN - [facility] [address] [place], [place] [id number] Director: Charanjit Godwin MD, Phone: [phone] Pinto General Hospitalerum or plasma creatine kinase measurement (enzymatic activity/volume)2020-06-13 14:09:00* Test Item Value Reference Range Interpretation Comments Creatine Kinase (test code = 2157-6) 369 30-200 [facility] plasma creatine kinase MB measurement (mass/volume)2020-06-13 14:09:00* Test Item Value Reference Range Interpretation Comments Creatine Kinase MB (test code = 72429-9) 7.50 0-5.0 [facility] CenterTroponin I measurement by highly sensitive enzyme nbymbtwhllq6120-13-78 14:09:00* Test Item Value Reference Range Interpretation Comments Troponin I (test code = 18366-5) 0.210 0-0.300 [facility] CenterArterial blood pH fyghuymlter9419-45-36 10:15:00* Test Item Value Reference Range Interpretation Comments Arterial Blood pH (test code = 2744-1) 7.35 7.35-7.45 [facility] CenterpCO2 NopC3190-52-67 10:15:00* Test Item Value Reference Range Interpretation Comments Arterial Blood Partial Pressure CO2 (test code = 2018-8) 80 35-45 [facility] CenterpCO2 XxpX4413-33-91 10:15:00* Test Item Value Reference Range Interpretation Comments Arterial Blood Partial Pressure O2 (test code = 2018-8) 293 80-105 [facility] CenterArterial blood bicarbonate measurement (moles/volume)2020-06-13 10:15:00* Test Item Value Reference Range Interpretation Comments Arterial Blood HCO3 (test code = 1960-4) 44 22-26 [facility] CenterArterial cord blood carbon dioxide, total measurement by calculation (moles/volume)2020-06-13 10:15:00* Test Item Value Reference Range Interpretation Comments Arterial Blood Total CO2 (test code = 13102-9) 47 [facility] CenterArterial blood base excess by calculation 2020-06-13 10:15:00* Test Item Value Reference Range Interpretation Comments Arterial Blood Base Excess (test code = 1925-7) 19.0 -2-3 [facility] CenterArterial blood oxygen saturation gwmfqnjykqj1184-54-61 10:15:00* Test Item Value Reference Range Interpretation Comments Arterial Blood Oxygen Saturation (test code = 2708-6) 100.0 95-98 [facility] CenterFluoroscopic procedure less than one hour honbibis4195-45-92 10:15:00* Test Item Value Reference Range Interpretation Comments FiO2 (test code = FiO2) 100 [facility] CenterArterial blood pH ufknnjsewyt4619-28-12 10:15:00* Test Item Value Reference Range Interpretation Comments Arterial Blood pH (test code = 2744-1) 7.35 7.35-7.45 [facility] CenterpCO2 WquM3043-54-95 10:15:00* Test Item Value Reference Range Interpretation Comments Arterial Blood Partial Pressure CO2 (test code = 2018-8) 80 35-45 [facility] CenterpCO2 TowZ9101-27-34 10:15:00* Test Item Value Reference Range Interpretation Comments Arterial Blood Partial Pressure O2 (test code = 2018-) 293 80-105 [facility] CenterArterial blood bicarbonate measurement (moles/volume)2020-06-13 10:15:00* Test Item Value Reference Range Interpretation Comments Arterial Blood HCO3 (test code = 1960-4) 44 22-26 [facility] CenterArterial cord blood carbon dioxide, total measurement by calculation (moles/volume)2020-06-13 10:15:00* Test Item Value Reference Range Interpretation Comments Arterial Blood Total CO2 (test code = 98073-5) 47 [facility] CenterArterial blood base excess by calculation 2020-06-13 10:15:00* Test Item Value Reference Range Interpretation Comments Arterial Blood Base Excess (test code = 1925-7) 19.0 -2-3 [facility] CenterArterial blood oxygen saturation tjpnmqygopy9740-72-82 10:15:00* Test Item Value Reference Range Interpretation Comments Arterial Blood Oxygen Saturation (test code = 2708-6) 100.0 95-98 [facility] CenterFluoroscopic procedure less than one hour uszdbnoj3175-60-03 10:15:00* Test Item Value Reference Range Interpretation Comments FiO2 (test code = FiO2) 100 [facility] CenterFluoroscopic procedure less than one hour fqcqsuxd9223-76-50 02:00:00* Test Item Value Reference Range Interpretation Comments Coronavirus (PCR) (test code = Coronavirus (PCR)) NOT DETECTED NOTD ETECTED [employer]pt[employer] SARS-CoV-2 assay is a nucleic amplification test intended for the qualitative detection of RNA from SARS-CoV-2 from nasopharyngeal (MACHINE FEEDER RAW STOCK) specimens . It is used under Emergency Use Authorization [...] for reprat testing oc clinically indicated.Tesing performed by:[facility] [address] [place] [id number], Clementina Jessica MD, PhD [facility] CenterUrine color evczjhzenpqju0206-67-41 23:22:00* Test Item Value Reference Range Interpretation Comments Urine Color (test code = 5778-6) YELLOW YELLOW DARK YELLOWHCA [facility] Healthcare Medical CenterUrine xdwfgln0805-23-93 23:22:00* Test Item Value Reference Range Interpretation Comments Urine Clarity (test code = 06469-6) CLOUDY CLEAR [facility] Hospitalpecific gravity of Urine by Test strip 2020-06-12 23:22:00* Test Item Value Reference Range Interpretation Comments Urine Specific Devol (test code = 5811-5) 1.020 1.010-1.02 5 [facility] CenterUrine pH measurement by automated test vwnwy4404-74-86 23:22:00* Test Item Value Reference Range Interpretation Comments Urine pH (test code = 34554-7) 5.5 5-7 [facility] CenterUrine leukocyte esterase detection by bygfnicl8931-77-58 23:22:00* Test Item Value Reference Range Interpretation Comments Urine Leukocyte Esterase (test code = 5799-2) MODERATE NEGATIVE [facility] CenterUrine nitrite tlhbmrlbr8364-86-77 23:22:00* Test Item Value Reference Range Interpretation Comments Urine Nitrite (test code = 67892-5) NEGATIVE NEGATIVE [facility] CenterUrine protein measurement by test strip (mass/volume)2020-06-12 23:22:00* Test Item Value Reference Range Interpretation Comments Urine Protein (test code = 5804-0) 1+ NEGATIVE [facility] CenterUrine glucose wcnzusjrp0682-62-25 23:22:00* Test Item Value Reference Range Interpretation Comments Urine Glucose (UA) (test code = 2349-9) NEGATIVE NEGATIVE [facility] CenterUrine ketones detection by automated test rxzsa0607-62-76 23:22:00* Test Item Value Reference Range Interpretation Comments Urine Ketones (test code = 81733-4) NEGATIVE NEGATIVE [facility] CenterUrine urobilinogen measurement by test strip (mass/volume)2020-06-12 23:22:00* Test Item Value Reference Range Interpretation Comments Urine Urobilinogen (test code = 22632-9) 0.2 0.2-1 [facility] CenterUrine total bilirubin measurement (mass/volume)2020-06-12 23:22:00* Test Item Value Reference Range Interpretation Comments Urine Bilirubin (test code = 1978-6) NEGATIVE NEGATIVE [facility] CenterUrine erythrocytes ftzerysvt7791-93-80 23:22:00* Test Item Value Reference Range Interpretation Comments Urine Blood (test code = 08086-9) SMALL NEGATIVE [facility] CenterAutomated urine sediment leukocyte count by microscopy (number/high power field)2020-06-12 23:22:00* Test Item Value Reference Range Interpretation Comments Urine WBC (test code = 5821-4) >50 0-5 [facility] CenterErythrocytes detection in urine sediment by light hogcxcgceq0301-14-05 23:22:00* Test Item Value Reference Range Interpretation Comments Urine RBC (test code = 92776-6) 6-10 0-5 [facility] CenterBacteria detection in urine sediment by light vuonxdgmuy5742-98-91 23:22:00* Test Item Value Reference Range Interpretation Comments Urine Bacteria (test code = 74692-3) MODERATE NONE [facility] CenterEpithelial cells detection in urine sediment by light feidbwsaik0439-99-28 23:22:00* Test Item Value Reference Range Interpretation Comments Urine Epithelial Cells (test code = 87497-2) FEW NONE [facility] CenterBacterial urine ianbmbp1238-39-55 23:22:00* Test Item Value Reference Range Interpretation Comments Urine Culture (test code = 630-4) PSEUDOMONAS AERUGINOSA [facility] CenterUrine color qeaakrkczphtm1998-59-85 23:22:00* Test Item Value Reference Range Interpretation Comments Urine Color (test code = 5778-6) YELLOW YELLOW DARK YELLOWHCA [facility] Healthcare Medical CenterUrine cquubxb2017-65-93 23:22:00* Test Item Value Reference Range Interpretation Comments Urine Clarity (test code = 92732-3) CLOUDY CLEAR [facility] Hospitalpecific gravity of Urine by Test strip 2020-06-12 23:22:00* Test Item Value Reference Range Interpretation Comments Urine Specific Devol (test code = 5811-5) 1.020 1.010-1.02 5 [facility] CenterUrine pH measurement by automated test rgmaq9515-96-64 23:22:00* Test Item Value Reference Range Interpretation Comments Urine pH (test code = 02462-4) 5.5 5-7 [facility] CenterUrine leukocyte esterase detection by bkmtgpvz6502-34-63 23:22:00* Test Item Value Reference Range Interpretation Comments Urine Leukocyte Esterase (test code = 5799-2) MODERATE NEGATIVE [facility] CenterUrine nitrite qykmaghnk6181-13-88 23:22:00* Test Item Value Reference Range Interpretation Comments Urine Nitrite (test code = 25994-8) NEGATIVE NEGATIVE [facility] CenterUrine protein measurement by test strip (mass/volume)2020-06-12 23:22:00* Test Item Value Reference Range Interpretation Comments Urine Protein (test code = 5804-0) 1+ NEGATIVE [facility] CenterUrine glucose sdoqbjqxj5979-77-10 23:22:00* Test Item Value Reference Range Interpretation Comments Urine Glucose (UA) (test code = 2349-9) NEGATIVE NEGATIVE [facility] CenterUrine ketones detection by automated test xthun4403-15-01 23:22:00* Test Item Value Reference Range Interpretation Comments Urine Ketones (test code = 69430-7) NEGATIVE NEGATIVE [facility] CenterUrine urobilinogen measurement by test strip (mass/volume)2020-06-12 23:22:00* Test Item Value Reference Range Interpretation Comments Urine Urobilinogen (test code = 34338-1) 0.2 0.2-1 [facility] CenterUrine total bilirubin measurement (mass/volume)2020-06-12 23:22:00* Test Item Value Reference Range Interpretation Comments Urine Bilirubin (test code = 1978-6) NEGATIVE NEGATIVE [facility] CenterUrine erythrocytes wimoketts1908-40-43 23:22:00* Test Item Value Reference Range Interpretation Comments Urine Blood (test code = 66157-9) SMALL NEGATIVE [facility] CenterAutomated urine sediment leukocyte count by microscopy (number/high power field)2020-06-12 23:22:00* Test Item Value Reference Range Interpretation Comments Urine WBC (test code = 5821-4) >50 0-5 [facility] CenterErythrocytes detection in urine sediment by light kmtuwaeayc1396-43-75 23:22:00* Test Item Value Reference Range Interpretation Comments Urine RBC (test code = 68345-1) 6-10 0-5 [facility] CenterBacteria detection in urine sediment by light qaaaqqclst3612-65-27 23:22:00* Test Item Value Reference Range Interpretation Comments Urine Bacteria (test code = 52784-1) MODERATE NONE [facility] CenterEpithelial cells detection in urine sediment by light quaiowwquo2866-60-60 23:22:00* Test Item Value Reference Range Interpretation Comments Urine Epithelial Cells (test code = 50702-6) FEW NONE [facility] CenterBacterial urine eioeege5962-74-13 23:22:00* Test Item Value Reference Range Interpretation Comments Urine Culture (test code = 630-4) PSEUDOMONAS AERUGINOSA [facility] CenterFluoroscopic procedure less than one hour jaupcfuk2866-20-75 21:00:00* Test Item Value Reference Range Interpretation Comments Lactic Acid Level (test code = Lactic Acid Level) 1.3 0.5- 2.0 [facility] CenterCHEST SINGLE (PORTABLE)2020-06-12 20:27:00 [facility] [address] [address] Patient Name: STEVE BENEDICT MR #: [id number] : 1945 Age/Sex: 74/M Req #: [id number] Adm Physician: ROSALIE MEDINA MD Ordered by: CLMEENTINA STONE MD Report #: [id number] Location: [facility] Room/Bed: [facility] Procedure: [id number] DX/CHES T SINGLE (PORTABLE) Exam Date: 06/12/20 Exam Time: 1 945 REPORT STATUS: Signed EXAMIN ATION: CHEST SINGLE (PORTABLE) COMPARISON: Chest x-ray 10/16/2019 INDICATION: WEAKNESS Y fall DISCUSSION: Frontal view of the est obtained at 1945 hours. HEART AND MEDIASTINUM: The heart is enlarged. The ureter is tortuous LINES: None. LUNGS/PLEURA: Subsegmental ate lectasis in the left lower lobe has increased. Right lung is clear. Vascular m arkings are normal. No large effusions. No pneumothorax BONES AND SOFT TI SSUES: Fusion plate in the lower cervical spine is partially imaged but gross ly intact. There are fractures of the left sixth and seventh ribs. Fracture of the left eighth rib cannot be excluded. Mild degenerative changes of the acro mioclavicular joints. The soft tissues are normal. IMPRESSION: Fra ctures of the left sixth and seventh ribs and possibly the left eighth rib. Baldwin bsegmental atelectasis of the left lung. No evidence of pneumothorax or hemoth orax. Signed by: Dr. Lalo Chappell MD on 06/12/2020 8:30 PM Dict ated By: LALO CHAPPELL MD 29 Transcribed By: ERAN on 06/12/202029 COPY TO: CLEMENTINA HAYS MD Blood nmbuobj5023-88-50 19:09:00* Test Item Value Reference Range Interpretation Comments Blood Culture (test code = 71453514) NO GROWTH AFTER 5 DAYS, FINAL REPORT [facility] CenterBlood ianbxti3112-16-87 19:09:00* Test Item Value Reference Range Interpretation Comments Blood Culture (test code = 93350838) NO GROWTH AFTER 5 DAYS, FINAL REPORT [facility] CenterProthrombin time (PT) in platelet poor plasma by coagulation ttjeu3665-90-02 18:48:00* Test Item Value Reference Range Interpretation Comments Prothrombin Time (test code = 5902-2) 13.5 11.9-14.5 [facility] CenterINR in Platelet poor plasma by Coagulation uxsxi1251-21-13 18:48:00* Test Item Value Reference Range Interpretation Comments Prothromb Time International Ratio (test code = 6301-6) 0.98 Oral Anticoagulant Therapy INR Values:1. Low Intensity Therapy 1.5 - 2.02 . Moderate Intensity Therapy 2.0 - 3.03. High Intensity Therapy(1) 2.5 - 3. 54. High Intensity Therapy(2) 3.0 - 4.05. Panic Value INR > 5.0 [facility] CenterActivated partial thromboplastin time (aPTT) in platelet poor plasma by coagulation bcwvf6899-00-82 18:48:00* Test Item Value Reference Range Interpretation Comments Activated Partial Thromboplast Time (test code = 36789-3) 39.5 23.8-35.5 [facility] CenterELECTROLYTES2020-06-25 15:44:003.2 [facility] QOLST5570-92-40 11:15:002.0[facility]annCHEM PANEL 2020-04-20 11:15:87477Ohlmuxpw HermannCHEM SHOTN6379-04-60 11:15:0039[facility]annCHEM HBFBH6926-97-90 11:15:001.56[facility]annCHEM HEFTE6063-03-10 11:15:58215Huqedgqk HermannCHEM TBCII7348-78-06 11:15:002.8[facility]annCHEM THRXS1178-96-89 11:15:0097[facility]annCHEM VJOLT1228-85-66 11:15:0033 [facility]annCHE[facility] ITGYJ0905-75-86 11:15:008.8[facility]annCHEM PANEL 2020-04-20 11:15:008.3[facility]annCHEM DZZJV3179-90-05 11:15:0043[facility] DrqpwlpZEDSVHHTGS1380-43-95 11:15:00Normal (04/20/20 6:15 AM)[facility] [place] EQURWDFVOB2435-02-37 11:15:00Normal (04/20/20 6:15 AM)[facility]annHEMATOLOGY 2020-04-20 11:15:0073.4[facility] SahpeerFUOBMRVRQA4179-84-65 11:15:0016.9[facility] LqanzkqZYKWXTTLRB0900-97-03 11:15:007.8[facility] XzxlsiyVAMFPWXVKV4394-47-18 11:15:001.0[facility] PufbzbzFHMOAEJETT4573-04-94 11:15:000.9[facility] [place] WPVRWVSIBX0880-29-77 11:15:003.5[facility] FugrvolXXNCEWQHJP0945-94-58 11:15:000.8 [facility] JzjgulxBLSBFEUWNI2092-13-81 11:15:000.4[facility]annHEMATOLOGY 2020-04-20 11:15:000.1[facility] YkswrlyNWTKLEDIRK1704-16-40 11:15:004.8[facility] AuqhjecFBRAPLHKUB7331-26-97 11:15:004.39[facility] AcbduuhPBFBITVZHI1278-37-55 11:15:0012.1[facility] MzjykwwYDODUNEDXK7333-55-04 11:15:0038.3[facility] [place] SPJFCVUMGP3515-29-04 11:15:0087.2[facility] DnibxxrWDZPRCRDGJ3413-54-07 11:15:00* Test Item Value Reference Range Interpretation Comments MCH (test code = MCH) 27.5 pg 27.0-31.0 [facility] AcltcpxBOVNTLPLZR8210-66-29 11:15:0031.5[facility]annHEMATOLOGY 2020-04-20 11:15:0019.6[facility] YjynuuePEVDMTHXGW8712-07-01 11:15:37052Stxvnihq YxyqoosDVJZXDNDUZ6745-67-84 11:15:008.0[facility] MositgmHTPADBSQOI4923-94-02 18:33:0017.2[facility] EkfeifqBDIGNGXXXA6864-30-76 18:33:00* Test Item Value Reference Range Interpretation Comments Oswaldo Tr TND (test code = Vanco Tr TND) 1330 1 [facility]annCHEM DFQVT5106-61-84 10:04:0083[facility]annCHEM PANEL 2020-04-19 10:04:0036[facility]annCHEM PNJPL8011-22-14 10:04:001.50[facility]annCHEM ASECR9660-59-91 10:04:22514Vmrxdpkk [facility]annCHEM IJPNN5450-16-91 10:04:003.1[facility]annCHEM XYCKH4304-56-65 10:04:49023Wqttlfcb [facility]annCHE[facility] WRNUZ3204-76-50 10:04:0035[facility]annCHEM FQLEC7791-86-44 10:04:009.2 [facility]annCHE[facility] QTPXQ1000-64-26 10:04:006.1[facility]annCHEM PANEL 2020-04-19 10:04:0045[facility]annCHEM DMFQD2341-13-60 10:04:001.6[facility]annCHEM TBEOV0323-99-76 10:04:003.4[facility] NsfqfxxOEUIQLPJBI0580-99-99 10:04:00Normal (04/19/20 5:04 AM)[facility] LegdakxZXUNFTGOYP0085-97-16 10:04:00 76.2[facility] BrjqrzbFRQPZYEBRT5533-81-24 10:04:0015.3[facility]annHEMATOLOGY 2020-04-19 10:04:007.2[facility] PueuligVDTHLTRJKU7205-64-60 10:04:000.6[facility] LidmowzDEFWCEUSJU9361-54-67 10:04:000.7[facility] BwmwhopYFPAAMSXJC6127-13-73 10:04:003.5[facility] NorvavlAORPRNKRCL9512-65-82 10:04:000.7[facility] [place] MIIROLYGWW9187-00-48 10:04:000.3[facility] AsflnxaPEKBBBYDYP8930-44-20 10:04:001+ (04/19/20 5:04 AM)[facility] AmitarkXQETJPPUED6031-63-85 10:04:004.6[facility] UkikrmnPBSVJWPKJC2821-74-07 10:04:004.73[facility] JibtkxeGIVWUZDFDI8592-61-71 10:04:0012.8[facility] CrkkdejBHACALOVYE2205-98-45 10:04:0041.5[facility] [place] VLHECUPUXS5736-05-73 10:04:0087.8[facility] XrhohgdDDKVOMKNUS1138-58-36 10:04:00* Test Item Value Reference Range Interpretation Comments MCH (test code = MCH) 27.1 pg 27.0-31.0 [facility] WibllkvPFREUTBOHQ8312-23-01 10:04:0030.8[facility]annHEMATOLOGY 2020-04-19 10:04:0019.5[facility] FgryvaxXHMKCWUZLY1159-22-93 10:04:63942Spyuovxo LjwgwayGLZAOQBEGB3928-22-28 10:04:007.8[facility] HermannCHEM ZBPSV8419-75-96 11:25:0077[facility]annCHEM EBRSI3031-87-43 11:25:0041[facility]annCHEM KIWRT8497-88-69 11:25:001.60[facility]annCHEM COSBJ5076-71-92 11:25:39639 [facility]annCHEM SKZST7910-63-17 11:25:0098[facility]annCHEM PANEL 2020-04-18 11:25:0037[facility]annCHEM CKTNT7684-43-91 11:25:006.0[facility]annCHEM APYAI8441-21-23 11:25:009.0[facility]annCHEM SMROR1078-20-54 11:25:0042[facility]annCHEM TATJQ4971-49-50 11:25:002.1[facility] ETLRRTOTEO2505-49-59 11:25:004.8[facility] SellhzwUTXMLJIFMT9887-08-08 11:25:00 4.57[facility] ZuykbjeFKUBGMXOTN1463-26-03 11:25:0012.5[facility]annHEMATOLOGY 2020-04-18 11:25:0040.3[facility] LnpfzqmPHHGAWBTNT6767-51-50 11:25:0088.3[facility] ZkttkmtNPXAJEFTHK0525-59-16 11:25:00* Test Item Value Reference Range Interpretation Comments MCH (test code = MCH) 27.3 pg 27.0-31.0 [facility] EnmwikeMUIMEGIRRG6891-77-67 11:25:0030.9[facility]annHEMATOLOGY 2020-04-18 11:25:0019.9[facility] NlsbndbFVKMSWNTZC4481-63-52 11:25:78219Xgbdthvf IsbyslgRXEGKWFGZH5237-92-06 11:25:007.9[facility] WxchovzCVXJSMQDGP5761-63-03 11:25:00Normal (04/18/20 6:25 AM)[facility] PpuomboDEPOSIZZAW1559-99-25 11:25:00 73.6[facility] YgrznhoFXGRKQIBGC7973-96-51 11:25:0017.5[facility]annHEMATOLOGY 2020-04-18 11:25:008.1[facility] OhkdklaOFLJSSYLDY7914-30-72 11:25:000.3[facility] AvwnyroFOHUVLNLRW7427-02-85 11:25:000.5[facility] VgzuvfoGASYTISTMQ2319-80-39 11:25:003.6[facility] XnjcnmyEZFEXYWLAV9809-44-03 11:25:000.8[facility] OBCHIYFYWY2033-06-36 11:25:000.4[facility] KtipclfNIVNOTIHWW4001-83-12 11:25:001+ *ABN*(04/18/20 6:25 AM)[facility] IbxemagPPSICQGSTS7196-32-45 11:25:001+ (04/18/20 6:25 AM)[facility] XhslsgwBMVVLZODWG6238-94-57 17:21:0015.8[facility] GEINMYTUUV0263-07-84 15:22:0017.9[facility] HermannCARDIAC HPRUMEP4324-55-11 10:56:41682Ucvbxtqq HermannCHEM LQGMG8153-99-79 10:56:003.1[facility] MYXISQBUXY2988-91-19 10:56:000.1[facility] CdrpbquWLSBBXSEWK8494-50-64 10:56:001+ (04/15/20 5:56 AM)[facility] BwbckhsURDQMFMGFO4067-39-69 15:19:0025.5[facility] HermannBACTERIAL - XCZFVOVZ5685-09-00 12:47:00Negative (04/14/20 7:47 AM)[facility] HermannCARDIAC JXQSWZH5223-66-06 10:50:000.13[facility] HermannCHEM PANEL 2020-04-14 10:50:004.5[facility] HyaqqqqUVHGGITDYK2363-03-78 10:50:0054[facility] WjywpjcTHJOLRZHNM7126-50-14 10:50:40587.0[facility] HermannCARDIAC ENZYMES 2020-04-13 22:27:000.15[facility] XteeeklEZXISQSCDG3582-83-91 22:27:0031[facility]annURINE AND JFFWN7868-25-92 22:27:00Slight *ABN*(04/13/20 5:27 PM)[facility]annUR[facility] AND KAJLU6942-47-03 22:27:00* Test Item Value Reference Range Interpretation Comments UA Spec Grav (test code = UA Spec Grav) 1.017 1 [facility] AND NBUFT3049-86-75 22:27:00* Test Item Value Reference Range Interpretation Comments UA pH (test code = UA pH) 5.0 1 5.0-8.0 [facility] AND SQAIG9296-08-50 22:27:00Negative *NA*(04/13/20 5:27 PM) [facility] SCSRW6287-52-01 22:27:00Negative (04/13/20 5:27 PM) [facility] SFJYZ6070-82-93 22:27:00Positive *ABN*(04/13/20 5:27 PM)[facility] SUFYK4762-48-69 22:27:00Negative (04/13/20 5:27 PM) [facility] ZWSDA6150-56-34 22:27:002[facility]UR[facility] AND SNJMF5166-78-19 22:27:001[facility]UR[facility] AND QYJVP6395-67-75 22:27:0083 [facility] CUWM3073-45-41 22:27:00* Test Item Value Reference Range Interpretation Comments U Prot/Creat (test code = U Prot/Creat) 0.17 1 [facility] ZHWW3318-77-10 22:27:52490.00[facility]annURINE CHEM 2020-04-13 22:27:0012[facility]annURINE CKFU6189-26-40 22:27:0036.0[facility]annURINE NMTC8375-33-35 22:27:00None Seen (04/13/20 5:27 PM)[facility] CARDIAC ZDGIHBE9038-15-50 15:56:57502Cxsbkrqs HermannCARDIAC RRRVVFI8483-02-45 15:56:0081[facility]annCARDIAC TMQOWQM8299-53-46 15:56:000.06[facility] [place] CHEM UXVXN0019-06-99 15:56:000.58[facility] HermannCHEM KGMAA3510-41-88 15:56:00 6.1[facility] HermannCHEM UQEMI9793-26-53 15:56:002.6[facility]annCHEM PANEL 2020-04-13 15:56:0021[facility] HermannCHEM ASDQW9825-93-77 15:56:0025[facility] HermannCHEM TLVWE6274-00-39 15:56:0075[facility] HermannCHEM WONQG7564-94-79 15:56:000.5[facility]annCHEM GSIKW7468-67-64 15:56:00* Test Item Value Reference Range Interpretation Comments B/C Ratio (test code = B/C Ratio) 23 1 6-25 [facility] HermannCHEM [id number] 15:56:003.5[facility]annCHEM PANEL 2020-04-13 15:56:00* Test Item Value Reference Range Interpretation Comments A/G Ratio (test code = A/G Ratio) 0.7 1 0.7-1.6 [facility]annCHEM [id number] 15:56:002.0[facility]annHEMATOLOGY 2020-04-13 15:56:000.94[facility] QwwdghuQMTXWYXCLY5007-48-58 15:56:00* Test Item Value Reference Range Interpretation Comments PT (test code = PT) 13.2 s 12.0-14.7 [facility] BbqmvjgJDNQMPJCLZ8937-91-41 15:56:00* Test Item Value Reference Range Interpretation Comments INR (test code = INR) 1.00 1 0.85-1.17 [facility] ZnvtdeqQXQZCKGMTB1538-03-15 15:56:00* Test Item Value Reference Range Interpretation Comments PTT (test code = PTT) 28.1 s 22.9-35.8 [facility]annMOLECULAR WLXLAIKGLT0244-15-76 15:56:00Not Detected (04/13/20 10:56 AM)[facility]ann[facility]LECULAR UWZTILALIN2521-70-57 15:56:00Detected *ABN*(04/13/20 10:56 AM)[facility]ann[facility]LECULAR WLSWQEQQJQ4661-85-42 15:56:00 Not Detected (04/13/20 10:56 AM)[facility]annMOLECULAR AOPSRWMFQS5913-88-22 15:56:00Not Detected (04/13/20 10:56 AM)[facility]annMOLECULAR DIAGNOSTIC 2020-04-13 15:56:00Not Detected (04/13/20 10:56 AM)[facility]ann[facility]LECULAR VRFPMJNLJW4674-28-10 15:56:00Not Detected (04/13/20 10:56 AM)[facility] [place] [facility]ULAR CUSXOXSCOZ0779-11-85 15:56:00Not Detected (04/13/20 10:56 AM)[facility]annMOLECULAR PTYYFHSYNW7038-54-91 15:56:00Not Detected (04/13/20 10:56 AM) [facility] YEFDLQIRGL1528-78-37 15:56:00Not Detected (04/13/20 10:56 AM)[facility]ann[facility]LECULAR DZKHHZQQDC2192-43-59 15:56:00Detected *ABN*(04/13/20 10:56 AM)[facility]ann[facility]LECULAR UMMHUPZTWW2083-28-43 15:56:00 Not Detected (04/13/20 10:56 AM)[facility]LE[facility] KCUCKZWBZX1309-91-80 15:56:00Not Detected (04/13/20 10:56 AM)[facility]LECULAR DIAGNOSTIC 2020-04-13 15:56:00Detected *ABN*(04/13/20 10:56 AM)[facility]annMOLECULAR PVZFTXLRQB7687-95-92 15:56:00Not Detected (04/13/20 10:56 AM)[facility] [place] MOLECULAR FHKECXGNLX9161-98-55 15:56:00Not Detected (04/13/20 10:56 AM)[facility] CecxjyrVOIQVSEQDP0781-69-68 00:33:0017.9[facility] YjhitxqQMMBXEQGNZ0602-55-56 00:33:00* Test Item Value Reference Range Interpretation Comments Oswaldo Botello TND (test code = [facility] 1931 1 [facility]annCHEM DPJKM1841-52-22 09:59:18119Rumgepbz HermannCHEM PANEL 2020-04-10 09:59:0064[facility]annCHEM GMFIH6443-73-12 09:59:001.77[facility]annCHEM UOJRE5144-84-85 09:59:33655Nqasgepo HermannCHEM VOQUN7203-10-81 09:59:003.7[facility]annCHEM BFNCQ9758-21-63 09:59:0091[facility]annCHEM WAPOA1266-44-00 09:59:0042[facility]annCHEM OVXDD4736-03-08 09:59:006.7 [facility]annCHEM DHOLN9551-40-74 09:59:009.2[facility]annCHEM PANEL 2020-04-10 09:59:0037[facility] ZrmsudcDNOQKUKIXJ9355-19-85 00:42:0017.8[facility] UktnowcTWEPCAWRYQ2063-67-86 00:42:00* Test Item Value Reference Range Interpretation Comments Vanco Tr TND (test code = Vanco Tr TND) 2000 [facility]annCHEM VFNAD7340-16-71 10:57:95985Ytvjqoaf HermannCHEM PANEL 2020-04-09 10:57:0069[facility]annCHEM SMTFL9240-48-01 10:57:002.00[facility]annCHEM GZKLO9727-30-04 10:57:47084Mwyncoyi HermannCHEM BNWRL7669-18-45 10:57:004.1[facility]annCHEM MVMHU0451-42-10 10:57:0091[facility]annCHEM XZNNC5417-56-39 10:57:0035[facility]annCHEM QMZYA0910-49-39 10:57:0015.1 [facility]CHE[facility] MBLHL1166-82-26 10:57:009.5[facility]annCHEM PANEL 2020-04-09 10:57:0032[facility] AlqkxnwWIJXYRJDQJ3816-38-70 22:28:0016.5[facility]annCHEM IUBNE5672-80-58 15:22:37491Dxfbfgeg HermannCHEM WTHSA2079-54-14 15:22:0065[facility]annCHEM WYYEA7908-09-61 15:22:001.88[facility]annCHEM WTACY5294-87-19 15:22:05232Ufjlmaol HermannCHEM ZVIRO2637-42-28 15:22:002.8 [facility]CHE[facility] XJNES0822-34-25 15:22:0085[facility]annCHEM PANEL 2020-04-08 15:22:0043[facility]annCHEM SPCBO9421-39-60 15:22:009.8[facility] HermannCHEM OYBYD2446-73-22 15:22:009.1[facility] HermannCHEM ZACCN8831-04-35 15:22:0034[facility] ZzebdhxRWXDPEBKPK9681-13-31 15:22:007.3[facility] [place] GODCGEXONR1944 15:22:004.74[facility] LdpdnrzHRPVUDVJHA7229-33-91 15:22:00 12.8[facility] FujqrepVJBFDRCZBO6368-93-49 15:22:0041.2[facility] HermannHEMATOLOGY 2020-04-08 15:22:0086.8[facility] WjdgifhEHJLSOLGXD4254-39-38 15:22:00* Test Item Value Reference Range Interpretation Comments MCH (test code = MCH) 27.0 pg 27.0-31.0 [facility] EvaqycqPEGTGJPADX6092-33-26 15:22:0031.1[facility] HermannHEMATOLOGY 2020-04-08 15:22:0020.1[facility] XfjvumyJPZXMILVAK2545-52-70 15:22:43467Nxqhxsic KiswwszQUZTXACHUM5209-07-22 15:22:007.4[facility] GbmuhmdCDPVFBBGTM5788-62-97 15:22:0083.0[facility] HrbrvgvAOUOCBRPDD2599-16-45 15:22:0011.0[facility] GTWVGSDLRH0670-51-71 15:22:005.3[facility] NxfiziqMINUQMFDBO5313-82-05 15:22:000.3 [facility] KkjkcucLQJJJYJVOD1234-53-78 15:22:000.4[facility]annHEMATOLOGY 2020-04-08 15:22:006.1[facility] ZrwdgnlHJLHTJWGAH4277-87-95 15:22:000.8[facility] WefljlqCZPOXFYWDH5996-81-27 15:22:000.4[facility]annURINE AND AZBYJ2970-44-14 19:09:00Yellow *NA*(04/04/20 2:09 PM)[facility]annURINE AND FFTZR4085-02-05 19:09:00Clear *NA*(04/04/20 2:09 PM)[facility]ann[facility] AND YEARW1535-40-27 19:09:00* Test Item Value Reference Range Interpretation Comments POC UA SG (test code = POC UA SG) 1.015 1 [facility]UR[facility] AND VJQJS0827-94-21 19:09:00* Test Item Value Reference Range Interpretation Comments POC UA pH (test code = POC UA pH) 6.0 1 5.0-8.0 [facility] YAVSO2946-28-89 19:09:00Negative *NA*(04/04/20 2:09 PM) [facility] TSQQJ1434-10-33 19:09:00Negative *NA*(04/04/20 2:09 PM) [facility] SUPRW4223-10-23 19:09:000.2[facility]annUR[facility] AND THIZH4064-29-08 19:09:00Negative *NA*(04/04/20 2:09 PM)[facility] AND ZIPRQ9162-91-81 19:09:00Trace *ABN*(04/04/20 2:09 PM)[facility] HermannIMMUNOLOGY 2020-04-04 15:15:00Not Detected (04/04/20 10:15 AM)[facility]annBLOOD BANK TPPFWPK7663-81-64 19:17:00Negative (04/03/20 2:17 PM)[facility] HermannCHEM PANEL 2020-04-03 19:17:00* Test Item Value Reference Range Interpretation Comments B/C Ratio (test code = B/C Ratio) 41 1 6-25 [facility]annCHEM GGHFP5061-34-98 19:17:006.5[facility] HermannCHEM PANEL 2020-04-03 19:17:003.3[facility] HermannCHEM IIONM9477-88-22 19:17:003.2[facility] HermannCHEM DWBVB6513-01-25 19:17:00* Test Item Value Reference Range Interpretation Comments A/G Ratio (test code = A/G Ratio) 1.0 1 0.7-1.6 [facility]annCHEM GAPLN2310-25-56 19:17:0025[facility] HermannCHEM PANEL 2020-04-03 19:17:0017[facility] HermannCHEM XQDMV8688-11-58 19:17:73252Sauikrom HermannCHEM JUNVE7158-77-16 19:17:000.5[facility] AlywcqlQNTZPIOSQU4835-13-35 19:17:007.9[facility] VqvitdgBODLJPDWXR2910-26-87 19:17:004.91[facility] ONZXZRGUXG8457-21-92 19:17:0013.5[facility] SpszokyVXVELDAGRS1464-55-81 19:17:00 42.7[facility] BhvzfahWNUHVEXHNC5311-33-41 19:17:0086.8[facility] HermannHEMATOLOGY 2020-04-03 19:17:00* Test Item Value Reference Range Interpretation Comments MCH (test code = MCH) 27.4 pg 27.0-31.0 [facility] PqjnbdoLTESNHFKTI3658-90-07 19:17:0031.6[facility] HermannHEMATOLOGY 2020-04-03 19:17:0019.5[facility] WoykagjOLQXJCPPSU5214-88-74 19:17:18151Buwicifi XzwtuvkERCZKAXUKY0232-11-98 19:17:007.7[facility] MgcgxskHFXPEZOMAS4798-75-02 19:17:00* Test Item Value Reference Range Interpretation Comments R-time (test code = R-time) 5.0 min 5.0-10.0 [facility] HbfsxgvMTCNSBDQYO9617-92-03 19:17:00* Test Item Value Reference Range Interpretation Comments K-time (test code = K-time) 1.4 min 1.0-3.0 [facility] HhzobzdHNGZYWARNG7752-18-38 19:17:00* Test Item Value Reference Range Interpretation Comments Angle (test code = Angle) 67.5 degrees 53.0-72.0 [facility] ReaqnbuNGDQHFXVXW1062-43-38 19:17:00* Test Item Value Reference Range Interpretation Comments Max Amp (test code = Max Amp) 65.7 mm 50.0-70.0 [facility] LskrftnZPTVFHZOOA6624-32-51 19:17:009.6[facility] HermannHEMATOLOGY 2020-04-03 19:17:000.0[facility] NsahuqbDTPXSEJLEE6455-33-64 19:17:00* Test Item Value Reference Range Interpretation Comments Coag Index (test code = Coag Index) 1.6 1 <=3.0 [facility] DmxvdacILKILXQTVM0398-98-79 19:17:00See Note (04/03/20 2:17 PM)[facility] BphbanxPMPMTBMAJX4370-84-48 19:17:006.6[facility] VcfzcpsWCGDHIFUTP1612-71-02 19:17:000.6[facility] SbfkrfmASDFJKNQKF0360-41-55 19:17:000.5[facility] [place] TOJCVMXKDH4520-41-72 19:17:000.1[facility] EuddwowEEARFZIORK7483-13-86 19:17:00 83.0[facility] IezeqhkVEVNZTGOFH6919-14-79 19:17:000.0[facility] HermannHEMATOLOGY 2020-04-03 19:17:008.0[facility] HfhuoggCEUPXEPZKA2130-55-08 19:17:006.0[facility] BzxnimdANITTAOMOR6689-29-95 19:17:001.0[facility] LzcadwyORXUCDYOBX4589-70-83 19:17:001.0[facility] QgrehcpNIYRQYGOPP5823-40-26 19:17:001.0[facility] DCHTVJFLDL7214-22-80 19:17:000.0[facility] YbltvuaIDQXQCOOVD8013-38-87 19:17:001 [facility] JwmdmxkDDYNFUGKNF2356-30-96 19:17:00Normal (04/03/20 2:17 PM)[facility] EcqqzamHYKQQKWFVM9018-66-00 19:17:001+ *ABN*(04/03/20 2:17 PM)[facility] DLVYLLACDM4112-77-95 19:17:0023.6[facility] HermannSPECIAL LPPNFZCND5085-26-43 19:17:008.1[facility]- XR FOOT 2 VIEWS [id number] 13:11:00 Name: STEVE BENEDICT [facility] : 1945 Age/S:74 /M [address] [facility] Unit#:[id number] Loc: [place] [address] Phys: Arsalan España MD Dis Date: PHONE #: [phone] Status: REG CLI FAX #: [phone] Exam Date: 03/28/2020 Re ason: DOM EXAMS: CPT CODE: [id number] XR FOOT [address] [place] [address] HISTORY: Diabetes. COM PARISON: Elbow x-ray from November 18, 2019. Location: [facility]. AP and lateral view of the left [...] West RT(R)(CT) T rnscrpt Data: 03/28/2020 (1311) t.DENZELR.TH4 Orig Print D/ T: S: 03/28/2020 (1314) PAGE 1 Si gned Report - XR ELBOW 2 VIEWS [id number] 13:11:00 Name: STEVE BENEDICT [facility] : 1945 Age/S:74 /M [address] [facility] Unit#:[id number] Loc: [place], [place] [address] Phys: Arsalan España MD Dis Date: PHONE #: [phone] Status: REG CLI FAX #: [phone] Exam Date: 03/28/2020 Reason: DIATES EXAMS: CPT CODE: [id number] XR EL[place] [address] [place] [address] HISTORY: Diabetes. COMPARISON: Elbow x-ray from November 18, 2019. Location: [facility]. AP and lateral view of the left [...] (1311) t.SDR.TH4 Orig Print D/T: S: 03/28/2020 (1862) PAGE 1 Signed Report [id number] 06:19:00* Test Item Value Reference Range Interpretation Comments GLUBED (test code = GLUBED) 98 mg/dL 74-106 N Performed by certified tubing mill operator at [facility] VICWRP7529-16-73 20:32:00* Test Item Value Reference Range Interpretation Comments GLUBED (test code = GLUBED) 122 mg/dL 74-106 H Performed by certified tubing mill operator at [facility] DCELBO5810-12-70 17:02:00* Test Item Value Reference Range Interpretation Comments GLUBED (test code = GLUBED) 193 mg/dL 74-106 H Performed by certified tubing mill operator at [facility] HMEZZX3801-11-27 17:02:00* Test Item Value Reference Range Interpretation Comments GLUBED (test code = GLUBED) 109 mg/dL 74-106 H Performed by certified tubing mill operator at [facility] BASIC METABOLIC [id number] 07:37:00* Test Item Value Reference Range Interpretation [...] code = CA) 9.6 mg/dL 8.5-10.1 N WJRSNXCDD5688-22-27 07:37:00* Test Item Value Reference Range Interpretation Comments MAGNESIUM (test code = MAG) 2.4 mg/dL 1.8-2.4 N BASIC METABOLIC YYQTF0854-44-74 06:36:00* Test Item Value Reference Range Interpretation [...] code = CA) 9.6 mg/dL 8.5-10.1 N GSFGLZKIF7436-95-96 06:36:00* Test Item Value Reference Range Interpretation Comments MAGNESIUM (test code = MAG) 2.4 mg/dL 1.8-2.4 N [id number] 05:52:00* Test Item Value Reference Range Interpretation Comments GLUBED (test code = GLUBED) 99 mg/dL 74-106 N Performed by certified tubing mill operator at [facility] FZELBG4430-04-51 05:25:00* Test Item Value Reference Range Interpretation Comments GLUBED (test code = GLUBED) 86 mg/dL 74-106 N Performed by certified tubing mill operator at [facility] - XR FOOT 2 VIEWS [id number] 18:31:00 FAX: Rosalie Weathers MD [place]: [address] St: ADM FAX: Teofilo Poon MD [phone] FAX: Sofia León NP [phone] Name: STEVE BENEDICT [facility] : 1945 Age/S: 74/M [address] [facility] Unit #: [id number] Loc: [address] [place] [address] Phys: Sofia León NP Acct: [id number] Dis Date: Status: ADM IN ONE #: [phone] Exam Date: 11/29/2019 174 FAX #: [phone] Reason: PAIN/SWELLING/REDNESS EXAMS: CPT CODE: [id number] XR FOOT [address] [place] [address] REASON FOR EXAM: PAIN/SWELLING/REDNESS EXAM ORDER DATE: 11/29/2019 5:26 PM Ordering: Sofia León NP Attending:Manuel Medina MD Location:[facility] PROCEDURE: - XR FOOT 2 VIEWS LT [...] signed by: Jc Farrell M.D. CC: Rosalie Medina; Teofilo Summers MD; Sofia León NP Technologist: Avis Ramirez([place]) Trnscrd Date/Time/By: 11/29/19 20 (1830) : By: TyroneVTL Orig Print D/T: S: 11/29/2019 (1833) PAGE 1 Signed Report [id number] 17:02:00* Test Item Value Reference Range Interpretation Comments GLUBED (test code = GLUBED) 100 mg/dL 74-106 N Performed by certified tubing mill operator at [facility] [id number] 15:30:00* Test Item Value Reference Range Interpretation Comments GLUBED (test code = GLUBED) 124 mg/dL 74-106 H Performed by certified tubing mill operator at [facility] [id number] 07:13:00* Test Item Value Reference Range Interpretation Comments GLUBED (test code = GLUBED) 89 mg/dL 74-106 N Performed by certified tubing mill operator at [facility] [id number] 21:29:00* Test Item Value Reference Range Interpretation Comments GLUBED (test code = GLUBED) 114 mg/dL 74-106 H Performed by certified tubing mill operator at [facility] [id number] 18:21:00* Test Item Value Reference Range Interpretation Comments GLUBED (test code = GLUBED) 143 mg/dL 74-106 H Performed by certified tubing mill operator at [facility] [id number] 12:47:00* Test Item Value Reference Range Interpretation Comments GLUBED (test code = GLUBED) 101 mg/dL 74-106 N Performed by certified tubing mill operator at [facility] [id number] 09:08:00* Test Item Value Reference Range Interpretation Comments GLUBED (test code = GLUBED) 218 mg/dL 74-106 H Performed by certified tubing mill operator at [facility] BASIC METABOLIC [id number] 07:42:00* Test Item Value Reference Range Interpretation [...] code = CA) 9.9 mg/dL 8.5-10.1 N [id number] 07:02:00* Test Item Value Reference Range Interpretation Comments GLUBED (test code = GLUBED) 220 mg/dL 74-106 H Performed by certified tubing mill operator at [facility] [id number] 07:02:00* Test Item Value Reference Range Interpretation Comments GLUBED (test code = GLUBED) 44 mg/dL 74-106 LL [facility] certified tubing mill operator [facility] Protocol~ [id number] 07:02:00* Test Item Value Reference Range Interpretation Comments GLUBED (test code = GLUBED) 25 mg/dL 74-106 LL Test performed as P.O.C. by nursing staff.Performed by certified tubing mill operator at [facility] [id number] 07:02:00* Test Item Value Reference Range Interpretation Comments GLUBED (test code = GLUBED) 36 mg/dL 74-106 LL Performed by certified tubing mill operator at [facility] [id number] 07:02:00* Test Item Value Reference Range Interpretation Comments GLUBED (test code = GLUBED) 46 mg/dL 74-106 LL [facility] certified tubing mill operator [facility]ified [facility]~ BASIC METABOLIC [id number] 06:56:00* Test Item Value Reference Range Interpretation [...] CA) 9.9 mg/dL 8.5-10.1 N BASIC METABOLIC [id number] 06:48:00* Test Item Value Reference Range Interpretation [...] code = CA) mg/dL 8.5-10.1 CBC W/AUTO [id number] 06:48:00* Test Item Value Reference Range Interpretation [...] = MDIFF) NO, ONLY SCAN NEEDED DIFFERENTIAL [id number] 06:48:00* Test Item Value Reference Range Interpretation [...] (test code = PLTMORPH) NORMAL CBC W/AUTO [id number] 06:19:00* Test Item Value Reference Range Interpretation [...] = MDIFF) NO, ONLY SCAN NEEDED DIFFERENTIAL [id number] 06:19:00* Test Item Value Reference Range Interpretation Comments STAIN ACCEPTABILITY (test code = STN ACCEPTABLE) CABOT RINGS (test code = CAB) MORPHOLOGY COMMENT (test code = MOC) PLATELET ESTIMATE (test code = PLTEST) PLATELET MORPHOLOGY (test code = PLTMORPH) CBC W/AUTO [id number] 06:19:00* Test Item Value Reference Range Interpretation [...] = MDIFF) NO, ONLY SCAN NEEDED DIFFERENTIAL [id number] 06:19:00* Test Item Value Reference Range Interpretation Comments STAIN ACCEPTABILITY (test code = STN ACCEPTABLE) CABOT RINGS (test code = CAB) MORPHOLOGY COMMENT (test code = MOC) PLATELET ESTIMATE (test code = PLTEST) PLATELET MORPHOLOGY (test code = PLTMORPH) CBC W/AUTO [id number] 06:19:00* Test Item Value Reference Range Interpretation [...] = MDIFF) NO, ONLY SCAN NEEDED DIFFERENTIAL [id number] 06:19:00* Test Item Value Reference Range Interpretation Comments STAIN ACCEPTABILITY (test code = STN ACCEPTABLE) MORPHOLOGY COMMENT (test code = MOC) PLATELET ESTIMATE (test code = PLTEST) PLATELET MORPHOLOGY (test code = PLTMORPH) CBC W/AUTO [id number] 06:19:00* Test Item Value Reference Range Interpretation [...] = MDIFF) NO, ONLY SCAN NEEDED DIFFERENTIAL [id number] 06:19:00* Test Item Value Reference Range Interpretation Comments STAIN ACCEPTABILITY (test code = STN ACCEPTABLE) CABOT RINGS (test code = CAB) MORPHOLOGY COMMENT (test code = MOC) PLATELET ESTIMATE (test code = PLTEST) PLATELET MORPHOLOGY (test code = PLTMORPH) [id number] 22:06:00* Test Item Value Reference Range Interpretation Comments GLUBED (test code = GLUBED) 146 mg/dL 74-106 H Performed by certified tubing mill operator at [facility] [id number] 16:54:00* Test Item Value Reference Range Interpretation Comments GLUBED (test code = GLUBED) 143 mg/dL 74-106 H Performed by certified tubing mill operator at [facility] [id number] 12:27:00* Test Item Value Reference Range Interpretation Comments GLUBED (test code = GLUBED) 121 mg/dL 74-106 H Performed by certified tubing mill operator at [facility] [id number] 10:32:00* Test Item Value Reference Range Interpretation Comments GLUBED (test code = GLUBED) 64 mg/dL 74-106 L Performed by certified tubing mill operator at [facility] [id number] 07:13:00* Test Item Value Reference Range Interpretation Comments GLUBED (test code = GLUBED) 132 mg/dL 74-106 H Performed by certified tubing mill operator at [facility] BASIC METABOLIC [id number] 06:43:00* Test Item Value Reference Range Interpretation [...] CA) 9.5 mg/dL 8.5-10.1 N BASIC METABOLIC [id number] 06:39:00* Test Item Value Reference Range Interpretation [...] CALCIUM (test code = CA) mg/dL 8.5-10.1 [id number] 22:22:00* Test Item Value Reference Range Interpretation Comments GLUBED (test code = GLUBED) 136 mg/dL 74-106 H Performed by certified tubing mill operator at [facility] [id number] 17:04:00* Test Item Value Reference Range Interpretation Comments GLUBED (test code = GLUBED) 196 mg/dL 74-106 H Performed by certified tubing mill operator at [facility] [id number] 14:42:00* Test Item Value Reference Range Interpretation Comments MAGNESIUM (test code = MAG) 2.2 mg/dL 1.8-2.4 N [id number] 12:42:00* Test Item Value Reference Range Interpretation Comments GLUBED (test code = GLUBED) 128 mg/dL 74-106 H Performed by certified tubing mill operator at [facility] BASIC METABOLIC [id number] 07:40:00* Test Item Value Reference Range Interpretation [...] CA) 8.4 mg/dL 8.5-10.1 L BASIC METABOLIC [id number] 07:31:00* Test Item Value Reference Range Interpretation [...] CALCIUM (test code = CA) mg/dL 8.5-10.1 [id number] 06:15:00* Test Item Value Reference Range Interpretation Comments GLUBED (test code = GLUBED) 153 mg/dL 74-106 H Performed by certified tubing mill operator at [facility] [id number] 20:40:00* Test Item Value Reference Range Interpretation Comments GLUBED (test code = GLUBED) 150 mg/dL 74-106 H Performed by certified tubing mill operator at [facility] [id number] 17:55:00* Test Item Value Reference Range Interpretation Comments GLUBED (test code = GLUBED) 133 mg/dL 74-106 H Performed by certified tubing mill operator at [facility] [id number] 14:38:00* Test Item Value Reference Range Interpretation Comments GLUBED (test code = GLUBED) 153 mg/dL 74-106 H Performed by certified tubing mill operator at [facility] BASIC METABOLIC [id number] 07:10:00* Test Item Value Reference Range Interpretation [...] CA) 8.2 mg/dL 8.5-10.1 L BASIC METABOLIC [id number] 07:05:00* Test Item Value Reference Range Interpretation [...] CALCIUM (test code = CA) mg/dL 8.5-10.1 [id number] 06:32:00* Test Item Value Reference Range Interpretation Comments GLUBED (test code = GLUBED) 120 mg/dL 74-106 H Performed by certified tubing mill operator at [facility] CBC W/AUTO [id number] 04:46:00* Test Item Value Reference Range Interpretation [...] = MDIFF) NO, ONLY SCAN NEEDED DIFFERENTIAL [id number] 04:46:00* Test Item Value Reference Range Interpretation Comments STAIN ACCEPTABILITY (test code = STN ACCEPTABLE) STAIN ACCEPTABLE POLYCHROMASIA (test code = POLC) 1+ BASOPHILIC STIPPLING (test code = STP) 1+ ANISOCYTOSIS (test code = ANISO) 2+ MICROCYTOSIS (test code = MICR) 2+ PLATELET ESTIMATE (test code = PLTEST) ADEQUATE PLATELET MORPHOLOGY (test code = PLTMORPH) NORMAL BASIC METABOLIC [id number] 04:40:00* Test Item Value Reference Range Interpretation [...] CA) 8.4 mg/dL 8.5-10.1 L BASIC METABOLIC [id number] 04:33:00* Test Item Value Reference Range Interpretation [...] code = CA) mg/dL 8.5-10.1 CBC W/AUTO [id number] 04:26:00* Test Item Value Reference Range Interpretation [...] = MDIFF) NO, ONLY SCAN NEEDED DIFFERENTIAL [id number] 04:26:00* Test Item Value Reference Range Interpretation Comments STAIN ACCEPTABILITY (test code = STN ACCEPTABLE) CABOT RINGS (test code = CAB) MORPHOLOGY COMMENT (test code = MOC) PLATELET ESTIMATE (test code = PLTEST) PLATELET MORPHOLOGY (test code = PLTMORPH) CBC W/AUTO [id number] 04:26:00* Test Item Value Reference Range Interpretation [...] = MDIFF) NO, ONLY SCAN NEEDED DIFFERENTIAL [id number] 04:26:00* Test Item Value Reference Range Interpretation Comments STAIN ACCEPTABILITY (test code = STN ACCEPTABLE) CABOT RINGS (test code = CAB) MORPHOLOGY COMMENT (test code = MOC) PLATELET ESTIMATE (test code = PLTEST) PLATELET MORPHOLOGY (test code = PLTMORPH) CBC W/AUTO [id number] 04:26:00* Test Item Value Reference Range Interpretation [...] = MDIFF) NO, ONLY SCAN NEEDED DIFFERENTIAL [id number] 04:26:00* Test Item Value Reference Range Interpretation Comments STAIN ACCEPTABILITY (test code = STN ACCEPTABLE) MORPHOLOGY COMMENT (test code = MOC) PLATELET ESTIMATE (test code = PLTEST) PLATELET MORPHOLOGY (test code = PLTMORPH) CBC W/AUTO [id number] 04:26:00* Test Item Value Reference Range Interpretation [...] = MDIFF) NO, ONLY SCAN NEEDED DIFFERENTIAL [id number] 04:26:00* Test Item Value Reference Range Interpretation Comments STAIN ACCEPTABILITY (test code = STN ACCEPTABLE) CABOT RINGS (test code = CAB) MORPHOLOGY COMMENT (test code = MOC) PLATELET ESTIMATE (test code = PLTEST) PLATELET MORPHOLOGY (test code = PLTMORPH) [id number] 20:04:00* Test Item Value Reference Range Interpretation Comments GLUBED (test code = GLUBED) 118 mg/dL 74-106 H Performed by certified tubing mill operator at [facility] [id number] 16:46:00* Test Item Value Reference Range Interpretation Comments GLUBED (test code = GLUBED) 123 mg/dL 74-106 H Performed by certified tubing mill operator at [facility] [id number] 12:44:00* Test Item Value Reference Range Interpretation Comments GLUBED (test code = GLUBED) 98 mg/dL 74-106 N Performed by certified tubing mill operator at [facility] BASIC METABOLIC [id number] 09:25:00* Test Item Value Reference Range Interpretation [...] CA) 8.1 mg/dL 8.5-10.1 L BASIC METABOLIC [id number] 09:22:00* Test Item Value Reference Range Interpretation [...] CALCIUM (test code = CA) mg/dL 8.5-10.1 [id number] 07:41:00* Test Item Value Reference Range Interpretation Comments GLUBED (test code = GLUBED) 189 mg/dL 74-106 H Performed by certified tubing mill operator at [facility] [id number] 07:41:00* Test Item Value Reference Range Interpretation Comments GLUBED (test code = GLUBED) 24 mg/dL 74-106 LL Test performed as P.O.C. by nursing staff.Performed by certified tubing mill operator at [facility] LACTIC [id number] 23:39:00* Test Item Value Reference Range Interpretation Comments LACTIC ACID (test code = LACT) 1.8 mmol/L 0.4-1.9 N [id number] 23:25:00* Test Item Value Reference Range Interpretation Comments POTASSIUM (test code = K) 3.8 mmol/L 3.5-5.1 N [id number] 23:25:00* Test Item Value Reference Range Interpretation Comments MAGNESIUM (test code = MAG) 2.0 mg/dL 1.8-2.4 N [id number] 23:24:00* Test Item Value Reference Range Interpretation Comments POTASSIUM (test code = K) 3.8 mmol/L 3.5-5.1 N [id number] 23:24:00* Test Item Value Reference Range Interpretation Comments MAGNESIUM (test code = MAG) mg/dL 1.8-2.4 CBC W/AUTO [id number] 06:16:00* Test Item Value Reference Range Interpretation [...] = MDIFF) NO, ONLY SCAN NEEDED DIFFERENTIAL [id number] 06:16:00* Test Item Value Reference Range Interpretation Comments STAIN ACCEPTABILITY (test code = STN ACCEPTABLE) STAIN ACCEPTABLE ANISOCYTOSIS (test code = ANISO) 1+ MICROCYTOSIS (test code = MICR) 1+ PLATELET ESTIMATE (test code = PLTEST) DECREASED PLATELET MORPHOLOGY (test code = PLTMORPH) NORMAL BASIC METABOLIC [id number] 05:59:00* Test Item Value Reference Range Interpretation [...] code = CA) 8.2 mg/dL 8.5-10.1 L [id number] 05:59:00* Test Item Value Reference Range Interpretation Comments MAGNESIUM (test code = MAG) 2.2 mg/dL 1.8-2.4 N BASIC METABOLIC [id number] 05:54:00* Test Item Value Reference Range Interpretation [...] CALCIUM (test code = CA) mg/dL 8.5-10.1 [id number] 05:54:00* Test Item Value Reference Range Interpretation Comments MAGNESIUM (test code = MAG) mg/dL 1.8-2.4 CBC W/AUTO [id number] 05:49:00* Test Item Value Reference Range Interpretation [...] = MDIFF) NO, ONLY SCAN NEEDED DIFFERENTIAL [id number] 05:49:00* Test Item Value Reference Range Interpretation Comments STAIN ACCEPTABILITY (test code = STN ACCEPTABLE) CABOT RINGS (test code = CAB) MORPHOLOGY COMMENT (test code = MOC) PLATELET ESTIMATE (test code = PLTEST) PLATELET MORPHOLOGY (test code = PLTMORPH) CBC W/AUTO [id number] 05:49:00* Test Item Value Reference Range Interpretation [...] = MDIFF) NO, ONLY SCAN NEEDED DIFFERENTIAL [id number] 05:49:00* Test Item Value Reference Range Interpretation Comments STAIN ACCEPTABILITY (test code = STN ACCEPTABLE) CABOT RINGS (test code = CAB) MORPHOLOGY COMMENT (test code = MOC) PLATELET ESTIMATE (test code = PLTEST) PLATELET MORPHOLOGY (test code = PLTMORPH) CBC W/AUTO [id number] 05:49:00* Test Item Value Reference Range Interpretation [...] = MDIFF) NO, ONLY SCAN NEEDED DIFFERENTIAL [id number] 05:49:00* Test Item Value Reference Range Interpretation Comments STAIN ACCEPTABILITY (test code = STN ACCEPTABLE) MORPHOLOGY COMMENT (test code = MOC) PLATELET ESTIMATE (test code = PLTEST) PLATELET MORPHOLOGY (test code = PLTMORPH) CBC W/AUTO [id number] 05:49:00* Test Item Value Reference Range Interpretation [...] = MDIFF) NO, ONLY SCAN NEEDED DIFFERENTIAL [id number] 05:49:00* Test Item Value Reference Range Interpretation Comments STAIN ACCEPTABILITY (test code = STN ACCEPTABLE) CABOT RINGS (test code = CAB) MORPHOLOGY COMMENT (test code = MOC) PLATELET ESTIMATE (test code = PLTEST) PLATELET MORPHOLOGY (test code = PLTMORPH) - XR ABDOMEN AP 1 [id number] 22:21:00 FAX: Rosalie Wetahers MD [place]: B St: 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 Large amount of stool in the descending transverse and proximal descending colon; 2. Otherwise, unremarkable bowel gas pattern; no e vidence of obstruction or other acute abnormalities. 3. No abnor mal calcifications. Location code: [facility] El ectronically Signed by Elroy Huff on 11/22 at 2221 Reported and signed by: Isaiah Huff M.D. CC: Rosalie Medina; Teofilo Summers MD; Sofia Saavedra NP Technologist: RT Caryl(R Trnscrd Date/Time/By: 11/22/2019 (2220) : By: [email or web address] Orig Print D/T: S: 11/22/2019 (2223) PAGE 1 Signed Report [id number] 16:22:00* Test Item Value Reference Range Interpretation Comments GLUBED (test code = GLUBED) 101 mg/dL 74-106 N [facility]~ [id number] 12:23:00* Test Item Value Reference Range Interpretation Comments GLUBED (test code = GLUBED) 106 mg/dL 74-106 N Performed by certified tubing mill operator at [facility] [id number] 08:34:00* Test Item Value Reference Range Interpretation Comments GLUBED (test code = GLUBED) 75 mg/dL 74-106 N Performed by certified tubing mill operator at [facility] BLOOD UREA [id number] 05:39:00* Test Item Value Reference Range Interpretation Comments BLOOD UREA NITROGEN (test code = BUN) 39 mg/dL 7-18 H [id number] 05:39:00* Test Item Value Reference Range Interpretation Comments CREATININE (test code = CREAT) 1.40 mg/dL 0.7-1.3 H BLOOD UREA [id number] 05:34:00* Test Item Value Reference Range Interpretation Comments BLOOD UREA NITROGEN (test code = BUN) 39 mg/dL 7-18 H [id number] 05:34:00* Test Item Value Reference Range Interpretation Comments CREATININE (test code = CREAT) mg/dL 0.7-1.3 [id number] 21:18:00* Test Item Value Reference Range Interpretation Comments GLUBED (test code = GLUBED) 143 mg/dL 74-106 H Performed by certified tubing mill operator at [facility] [id number] 16:14:00* Test Item Value Reference Range Interpretation Comments GLUBED (test code = GLUBED) 120 mg/dL 74-106 H Performed by certified tubing mill operator at [facility] [id number] 16:14:00* Test Item Value Reference Range Interpretation Comments GLUBED (test code = GLUBED) 123 mg/dL 74-106 H Performed by certified tubing mill operator at [facility] [id number] 08:04:00* Test Item Value Reference Range Interpretation Comments GLUBED (test code = GLUBED) 122 mg/dL 74-106 H Performed by certified tubing mill operator at [facility] BASIC METABOLIC [id number] 06:42:00* Test Item Value Reference Range Interpretation [...] CA) 8.7 mg/dL 8.5-10.1 N BASIC METABOLIC [id number] 06:37:00* Test Item Value Reference Range Interpretation [...] code = CA) mg/dL 8.5-10.1 CBC W/AUTO [id number] 06:33:00* Test Item Value Reference Range Interpretation [...] = MDIFF) NO, ONLY SCAN NEEDED DIFFERENTIAL [id number] 06:33:00* Test Item Value Reference Range Interpretation Comments STAIN ACCEPTABILITY (test code = STN ACCEPTABLE) STAIN ACCEPTABLE POLYCHROMASIA (test code = POLC) 1+ POIKILOCYTOSIS (test code = POIK) 1+ ANISOCYTOSIS (test code = ANISO) 1+ MICROCYTOSIS (test code = MICR) 1+ ELLIPTOCYTES (test code = ELL) 1+ PLATELET ESTIMATE (test code = PLTEST) ADEQUATE PLATELET MORPHOLOGY (test code = PLTMORPH) NORMAL CBC W/AUTO [id number] 06:13:00* Test Item Value Reference Range Interpretation [...] = MDIFF) NO, ONLY SCAN NEEDED DIFFERENTIAL [id number] 06:13:00* Test Item Value Reference Range Interpretation Comments STAIN ACCEPTABILITY (test code = STN ACCEPTABLE) CABOT RINGS (test code = CAB) MORPHOLOGY COMMENT (test code = MOC) PLATELET ESTIMATE (test code = PLTEST) PLATELET MORPHOLOGY (test code = PLTMORPH) CBC W/AUTO [id number] 06:13:00* Test Item Value Reference Range Interpretation [...] = MDIFF) NO, ONLY SCAN NEEDED DIFFERENTIAL [id number] 06:13:00* Test Item Value Reference Range Interpretation Comments STAIN ACCEPTABILITY (test code = STN ACCEPTABLE) MORPHOLOGY COMMENT (test code = MOC) PLATELET ESTIMATE (test code = PLTEST) PLATELET MORPHOLOGY (test code = PLTMORPH) CBC W/AUTO [id number] 06:12:00* Test Item Value Reference Range Interpretation [...] = MDIFF) NO, ONLY SCAN NEEDED DIFFERENTIAL [id number] 06:12:00* Test Item Value Reference Range Interpretation Comments STAIN ACCEPTABILITY (test code = STN ACCEPTABLE) CABOT RINGS (test code = CAB) MORPHOLOGY COMMENT (test code = MOC) PLATELET ESTIMATE (test code = PLTEST) PLATELET MORPHOLOGY (test code = PLTMORPH) CBC W/AUTO [id number] 06:12:00* Test Item Value Reference Range Interpretation [...] = MDIFF) NO, ONLY SCAN NEEDED DIFFERENTIAL [id number] 06:12:00* Test Item Value Reference Range Interpretation Comments STAIN ACCEPTABILITY (test code = STN ACCEPTABLE) CABOT RINGS (test code = CAB) MORPHOLOGY COMMENT (test code = MOC) PLATELET ESTIMATE (test code = PLTEST) PLATELET MORPHOLOGY (test code = PLTMORPH) [id number] 04:54:00* Test Item Value Reference Range Interpretation Comments GLUBED (test code = GLUBED) 124 mg/dL 74-106 H Performed by certified tubing mill operator at [facility] [id number] 21:26:00* Test Item Value Reference Range Interpretation Comments GLUBED (test code = GLUBED) 193 mg/dL 74-106 H Performed by certified tubing mill operator at [facility] [id number] 17:23:00* Test Item Value Reference Range Interpretation Comments GLUBED (test code = GLUBED) 159 mg/dL 74-106 H Performed by certified tubing mill operator at [facility] [id number] 13:36:00* Test Item Value Reference Range Interpretation Comments GLUBED (test code = GLUBED) 145 mg/dL 74-106 H Performed by certified tubing mill operator at [facility] [id number] 08:14:00* Test Item Value Reference Range Interpretation Comments GLUBED (test code = GLUBED) 89 mg/dL 74-106 N Performed by certified tubing mill operator at [facility] CBC W/AUTO [id number] 06:16:00* Test Item Value Reference Range Interpretation [...] = MDIFF) NO, ONLY SCAN NEEDED DIFFERENTIAL [id number] 06:16:00* Test Item Value Reference Range Interpretation Comments STAIN ACCEPTABILITY (test code = STN ACCEPTABLE) STAIN ACCEPTABLE POLYCHROMASIA (test code = POLC) 1+ POIKILOCYTOSIS (test code = POIK) 1+ ANISOCYTOSIS (test code = ANISO) 2+ MICROCYTOSIS (test code = MICR) 2+ OVALOCYTES (test code = OVAL) 1+ PLATELET ESTIMATE (test code = PLTEST) ADEQUATE PLATELET MORPHOLOGY (test code = PLTMORPH) NORMAL BASIC METABOLIC [id number] 06:16:00* Test Item Value Reference Range Interpretation [...] CA) 8.3 mg/dL 8.5-10.1 L BASIC METABOLIC [id number] 06:06:00* Test Item Value Reference Range Interpretation [...] code = CA) mg/dL 8.5-10.1 CBC W/AUTO [id number] 05:46:00* Test Item Value Reference Range Interpretation [...] = MDIFF) NO, ONLY SCAN NEEDED DIFFERENTIAL [id number] 05:46:00* Test Item Value Reference Range Interpretation Comments STAIN ACCEPTABILITY (test code = STN ACCEPTABLE) CABOT RINGS (test code = CAB) MORPHOLOGY COMMENT (test code = MOC) PLATELET ESTIMATE (test code = PLTEST) PLATELET MORPHOLOGY (test code = PLTMORPH) CBC W/AUTO [id number] 05:46:00* Test Item Value Reference Range Interpretation [...] = MDIFF) NO, ONLY SCAN NEEDED DIFFERENTIAL [id number] 05:46:00* Test Item Value Reference Range Interpretation Comments STAIN ACCEPTABILITY (test code = STN ACCEPTABLE) MORPHOLOGY COMMENT (test code = MOC) PLATELET ESTIMATE (test code = PLTEST) PLATELET MORPHOLOGY (test code = PLTMORPH) CBC W/AUTO [id number] 05:45:00* Test Item Value Reference Range Interpretation [...] = MDIFF) NO, ONLY SCAN NEEDED DIFFERENTIAL [id number] 05:45:00* Test Item Value Reference Range Interpretation Comments STAIN ACCEPTABILITY (test code = STN ACCEPTABLE) CABOT RINGS (test code = CAB) MORPHOLOGY COMMENT (test code = MOC) PLATELET ESTIMATE (test code = PLTEST) PLATELET MORPHOLOGY (test code = PLTMORPH) CBC W/AUTO [id number] 05:45:00* Test Item Value Reference Range Interpretation [...] = MDIFF) NO, ONLY SCAN NEEDED DIFFERENTIAL [id number] 05:45:00* Test Item Value Reference Range Interpretation Comments STAIN ACCEPTABILITY (test code = STN ACCEPTABLE) CABOT RINGS (test code = CAB) MORPHOLOGY COMMENT (test code = MOC) PLATELET ESTIMATE (test code = PLTEST) PLATELET MORPHOLOGY (test code = PLTMORPH) [id number] 20:52:00* Test Item Value Reference Range Interpretation Comments GLUBED (test code = GLUBED) 128 mg/dL 74-106 H Performed by certified tubing mill operator at [facility] [id number] 18:34:00* Test Item Value Reference Range Interpretation Comments GLUBED (test code = GLUBED) 118 mg/dL 74-106 H Performed by certified tubing mill operator at [facility] [id number] 18:34:00* Test Item Value Reference Range Interpretation Comments GLUBED (test code = GLUBED) 100 mg/dL 74-106 N Performed by certified tubing mill operator at [facility] [id number] 08:41:00* Test Item Value Reference Range Interpretation Comments GLUBED (test code = GLUBED) 108 mg/dL 74-106 H Performed by certified tubing mill operator at [facility] CBC W/AUTO [id number] 06:21:00* Test Item Value Reference Range Interpretation [...] = MDIFF) NO, ONLY SCAN NEEDED DIFFERENTIAL [id number] 06:21:00* Test Item Value Reference Range Interpretation Comments STAIN ACCEPTABILITY (test code = STN ACCEPTABLE) STAIN ACCEPTABLE ANISOCYTOSIS (test code = ANISO) 1+ MICROCYTOSIS (test code = MICR) 1+ PLATELET ESTIMATE (test code = PLTEST) ADEQUATE PLATELET MORPHOLOGY (test code = PLTMORPH) NORMAL BASIC METABOLIC [id number] 05:30:00* Test Item Value Reference Range Interpretation [...] RELATED TO RISK LEVELS ASRECOMMENDED BY THE TIFFANY. HEART, LUNG, AND BLOOD INST. HDL CHOLESTEROL (test code = HDL) 41 mg/dL 40-60 N LIPOPROTEIN LDL (test code = LDL) 95 mg/dL 100-129 L Reference Interval: mg/dL mmol/L Optimal <100 <2.6Near/above optimal 100-129 2.6- 3.3Borderline High 130-159 3.4-4.1High 160-189 4.1-4.9Very High >=190 >=4.9========= This LDL result is a direct measurement.========= [id number] 05:30:00* Test Item Value Reference Range Interpretation Comments PHOSPHORUS (test code = PHOS) 1.9 mg/dL 2.5-4.9 L [id number] 05:30:00* Test Item Value Reference Range Interpretation Comments MAGNESIUM (test code = MAG) 2.5 mg/dL 1.8-2.4 H THYROID STIMULATING [id number] 05:30:00* Test Item Value Reference Range Interpretation Comments THYROID STIMULATING HORMONE (test code = TSH) 5.000 uIU/mL 0.36-3.7 4 H TSH REFERENCE RANGES: EUTHYROID: 0.35 - 4.3 mIU/mL HYPO : > 5.5 mIU/mL HYPER : < 0.35 mIU/mL B-TYPE NATRIURETIC [id number] 05:27:00* Test Item Value Reference Range Interpretation Comments B-TYPE NATRIURETIC PEPTIDE (test code = BNP) 112.32 pgram/mL 0-100 H CBC W/AUTO [id number] 05:27:00* Test Item Value Reference Range Interpretation [...] = MDIFF) NO, ONLY SCAN NEEDED DIFFERENTIAL [id number] 05:27:00* Test Item Value Reference Range Interpretation Comments STAIN ACCEPTABILITY (test code = STN ACCEPTABLE) STAIN ACCEPTABLE ANISOCYTOSIS (test code = ANISO) 1+ MICROCYTOSIS (test code = MICR) 1+ MORPHOLOGY COMMENT (test code = MOC) NORMAL PLATELET ESTIMATE (test code = PLTEST) ADEQUATE PLATELET MORPHOLOGY (test code = PLTMORPH) NORMAL BASIC METABOLIC [id number] 05:15:00* Test Item Value Reference Range Interpretation [...] LDL (test code = LDL) mg/dL 100-129 [id number] 05:15:00* Test Item Value Reference Range Interpretation Comments PHOSPHORUS (test code = PHOS) mg/dL 2.5-4.9 [id number] 05:15:00* Test Item Value Reference Range Interpretation Comments MAGNESIUM (test code = MAG) mg/dL 1.8-2.4 THYROID STIMULATING [id number] 05:15:00* Test Item Value Reference Range Interpretation Comments THYROID STIMULATING HORMONE (test code = TSH) uIU/mL 0.36-3.7 4 [id number] 05:08:00* Test Item Value Reference Range Interpretation Comments GLYCOSYLATED HEMOGLOBIN (HA1C) (test code = GLYHGB) 6.9 % HbA1 SUGGESTED DIAGNOSIS: HbA1C (%) Diabetic >6.4Prediabetes 5.7 - 6.4Normal <5.7 ESTIMATED AVERAGE GLUCOSE (test code = EAG) 151 MG/DL CBC W/AUTO [id number] 04:59:00* Test Item Value Reference Range Interpretation [...] = MDIFF) NO, ONLY SCAN NEEDED DIFFERENTIAL [id number] 04:59:00* Test Item Value Reference Range Interpretation Comments STAIN ACCEPTABILITY (test code = STN ACCEPTABLE) CABOT RINGS (test code = CAB) MORPHOLOGY COMMENT (test code = MOC) PLATELET ESTIMATE (test code = PLTEST) PLATELET MORPHOLOGY (test code = PLTMORPH) CBC W/AUTO [id number] 04:59:00* Test Item Value Reference Range Interpretation [...] = MDIFF) NO, ONLY SCAN NEEDED DIFFERENTIAL [id number] 04:59:00* Test Item Value Reference Range Interpretation Comments STAIN ACCEPTABILITY (test code = STN ACCEPTABLE) CABOT RINGS (test code = CAB) MORPHOLOGY COMMENT (test code = MOC) PLATELET ESTIMATE (test code = PLTEST) PLATELET MORPHOLOGY (test code = PLTMORPH) CBC W/AUTO [id number] 04:59:00* Test Item Value Reference Range Interpretation [...] = MDIFF) NO, ONLY SCAN NEEDED DIFFERENTIAL [id number] 04:59:00* Test Item Value Reference Range Interpretation Comments STAIN ACCEPTABILITY (test code = STN ACCEPTABLE) MORPHOLOGY COMMENT (test code = MOC) PLATELET ESTIMATE (test code = PLTEST) PLATELET MORPHOLOGY (test code = PLTMORPH) CBC W/AUTO [id number] 04:58:00* Test Item Value Reference Range Interpretation [...] = MDIFF) NO, ONLY SCAN NEEDED DIFFERENTIAL [id number] 04:58:00* Test Item Value Reference Range Interpretation Comments STAIN ACCEPTABILITY (test code = STN ACCEPTABLE) CABOT RINGS (test code = CAB) MORPHOLOGY COMMENT (test code = MOC) PLATELET ESTIMATE (test code = PLTEST) PLATELET MORPHOLOGY (test code = PLTMORPH) [id number] 20:45:00* Test Item Value Reference Range Interpretation Comments GLUBED (test code = GLUBED) 181 mg/dL 74-106 H Performed by certified tubing mill operator at [facility] [id number] 16:47:00* Test Item Value Reference Range Interpretation Comments GLUBED (test code = GLUBED) 204 mg/dL 74-106 H Performed by certified tubing mill operator at [facility] URINALYSIS [id number] 12:34:00* Test Item Value Reference Range Interpretation [...] AMORU) MANY #/LPF Urine Source? Clean CatchURINALYSIS [id number] 12:33:00* Test Item Value Reference Range Interpretation [...] BACU) per HPF NONE Urine Source? Clean [id number] 11:40:00* Test Item Value Reference Range Interpretation Comments GLUBED (test code = GLUBED) 124 mg/dL 74-106 H Performed by certified tubing mill operator at [facility] - XR ELBOW 3 + V [id number] 07:29:00 FAX: Teofilo Poon MD [phone] [place]: [address] St: REG FAX: Alejandro Powers DO Name: STEVE BENEDICT [facility] : 1945 Age/S: 74/M [address] Unit #: [id number] Loc: [place] [address] Phys: Alejandro Powers DO Acct: [id number] Dis Date: Status: REG ER PHONE #: [phone] Exam Date: 11/18/2019 0655 FAX #: [phone] Reason: pain EXAMS: CPT CODE: [id number] XR ELBOW 3 + V LT [address] HISTORY: Pain. COMPARISON: May 05, 2019. Location: TH. Moderate soft tissue swelling along the olecra non process suggesting olecranon bursitis. No acute fracture or dislocati on. No elbow joint fluid is noted. Mineralization is normal. IMPRESSION: No acute fracture or dislocation or joint flu id. Moderate soft tissue swelling along the olecranon process suggestiv e of olecranon bursitis. at 0729 Reported and signed by: Tyler coleman M.D. CC: Teofilo Summers MD; Alejandro Powers DO Technologist: Colette Ramirez(Charlotte) Trngard Date/Time/By: 11/18/2019 (728) : By: [email or web address] Orig Print D /T: S: 11/18/2019 (0787) PAGE 1 S igned Report - CT C-SPINE W/O [id number] 06:50:00 Name: STEVE BENEDICT [facility] : 1945 Age/S: 74 / M [address] Unit #: [id number] Loc: [place] [address] Phys: Alejandro Powers DO Acct: [id number] Dis Date: Status: REG ER PHONE #: [phone] Exam Date: 11/18/2019 0557 FAX #: [phone] Reason: Neck Pain EXAMS: CPT CODE: [id number] CT C-SPINE W/O CONTRAST 28069 DICTATION LOCATION: H48 HISTORY: Male, 74 years [...] Technologist:JIMY DEJESUS CTDI: DLP: Trnscb Date/Time: 11/18/2019 (0650) Martha Orig Print D/T: S: 11/18/2019 (0653) PAGE 1 Signed Report - CT HEAD/BRAIN W/O [id number] 06:48:00 Name: STEVE BENEDICT [facility] : 1945 Age/S: 74 / M [address] [facility] Unit #: [id number] Loc: [place] [address] Phys: Alejandro Powers DO Acct: [id number] Di s Date: Status: REG ER PHONE #: [phone] Exam Date: 11/18/2019 0550 FAX #: Reason: HEADACHE EXAMS: CPT CODE: [id number] CT HEAD/BRAIN W/O CONT 68329 DICTATION LOCATION: H48 HISTORY: Male, 74 years of age with fall, head injury, on blood thinners EXAM: CT BRAIN WITHOUT IV CONTRAST C OMPARISON: Previous CT brain without contrast performed 05/05/2019 TECHNIQUE: Helical axial images were obtained through the brain without IV contrast. Coronal and sagittal reformats were performed. One or more of t he following dose reduction techniques were used: Automated exposure contr ol; adjustment of the mA and/or kV according to the patient size; and/or u se of iterative reconstruction technique. FINDINGS: Soft tissue [...] sign ed by: Berenice Bernal MD CC: Tefoilo Summers MD; Alejandro Powers DO Technologist:JIMY AGUILAR CT CTDI: DLP: Trnscb Date/Time: 11/18/2019 (0648) t.SDR.CLW Orig P rint D/T: S: 11/18/2019 (0668) PAGE 1 Signed Report BASIC METABOLIC [id number] 06:35:00* Test Item Value Reference Range Interpretation [...] CA) 8.9 mg/dL 8.5-10.1 N HEPATIC FUNCTION [id number] 06:35:00* Test Item Value Reference Range Interpretation [...] reference range due to change in reagent. [id number] 06:35:00* Test Item Value Reference Range Interpretation Comments TROPONIN-I (test code = TROPI) 0.018 ng/mL 0-0.045 N BASIC METABOLIC [id number] 06:24:00* Test Item Value Reference Range Interpretation [...] code = CA) mg/dL 8.5-10.1 HEPATIC FUNCTION [id number] 06:24:00* Test Item Value Reference Range Interpretation [...] TOTAL (test code = ALKP) IUnit/L 45-117 [id number] 06:24:00* Test Item Value Reference Range Interpretation Comments TROPONIN-I (test code = TROPI) ng/mL 0-0.045 CBC W/O [id number] 06:21:00* Test Item Value Reference Range Interpretation [...] fL 6.7-11.0 N - XR CHEST 1 [id number] 05:53:00 FAX: Teofilo Poon MD [phone] [place]: St: REG FAX: Alejandro Powers DO Name: STEVE BENEDICT [facility] : 1945 Age/S: 74/M [address] [facility] Unit #: [id number] Loc: [place] [address] Phys: Alejandro Powers DO Acct: [id number] Dis Date: Status: REG ER PHONE #: [phone] Exam Date: 11/18/2019 0530 FAX #: [phone] Reason: CHEST PAIN EXAMS: CPT CODE: [id number] XR CHEST 1 V 11049 EXAM: XR Chest 1 View INDICATION: CHEST [...] acute cardiopulmonary abnormality. at 0553 Reported and s igned by: Eloisa Vines M.D. CC: Teofilo Summers MD; Alejandro Powers DO Technologist: RT OTF [place] Date/Time/By: 11/18/2019 (0553) : By: [email or web address] Orig Print D/T: S: 11/18/2019 (0507) PAGE 1 Signed Report HEMATOLOGY 2019-11-10 17:01:00* Test Item Value Reference Range Interpretation Comments PT (test code = PT) 13.6 s 12.0-14.7 [facility] LzhawhhAFMOJQAHIN5610-24-81 17:01:00* Test Item Value Reference Range Interpretation Comments INR (test code = INR) 1.04 1 0.85-1.17 [facility] YdhjgefLBYHPNQBDM5271-53-07 17:01:00* Test Item Value Reference Range Interpretation Comments PTT (test code = PTT) 25.1 s 22.9-35.8 [facility] [employer] YRKVNIK9344-95-20 16:59:00Negative (11/10/19 10:59 AM) [facility] [employer] ZPWSLZG5111-88-64 16:59:00Product available (11/10/19 10:59 AM)[facility] XVFYX5946-39-97 16:59:99877Asfpsrpd HermannCHEM XHZPO9805-86-53 16:59:0049[facility]annCHE[facility] JVAPI8722-13-21 16:59:001.51 [facility] QKXGF0933-45-10 16:59:56760Iorxfjrq HermannCHEM PANEL 2019-11-10 16:59:003.4[facility]ann[facility] ZEBRY0424-10-84 16:59:0093[facility]annCHE[facility] HMRXF3942-07-07 16:59:0036[facility]ann[facility] MLMYQ8310-85-76 16:59:008.8[facility]annCHE[facility] PJOWT9325-21-34 16:59:0012.4[facility]ann[facility] LGJPO7277-64-04 16:59:0045[facility]annCHE[facility] XDBJR3026-60-84 16:59:002.1 [facility] LhsgfrfUYMOOCZRKA3063-34-53 16:59:0088.7[facility] HermannHEMATOLOGY 2019-11-10 16:59:006.8[facility] ZqlnvnkDIQLXKIGFZ1915-60-02 16:59:004.4[facility] CbglsemZZVSAYNCBE2935-42-57 16:59:000.1[facility] XkdynynULNPCNAJRA2824-68-70 16:59:009.3[facility] EjlrkyqRTQPEGXXYB7089-50-70 16:59:000.7[facility] Vivek UQGKXZWFPA7775-51-14 16:59:000.5[facility] FerqowgYUSUUVDKIC9857-70-36 16:59:00 10.5[facility] DkdpkziQQWGCSFDGH0549-64-94 16:59:004.95[facility]annHEMATOLOGY 2019-11-10 16:59:0012.4[facility] RauujsyDFBJLYSEUK7010-62-72 16:59:0039.2[facility] TxkwwroEKMYXCVFCL6843-63-73 16:59:0079.2[facility] ItkcxawOQQNEVZQHG7485-52-44 16:59:00* Test Item Value Reference Range Interpretation Comments MCH (test code = MCH) 25.1 pg 27.0-31.0 [facility] ExbyjjxAEPUBHGULO2679-78-86 16:59:0031.7[facility] HermannHEMATOLOGY 2019-11-10 16:59:0019.6[facility] AhzpbasYHNOJUPTVP3945-39-77 16:59:15064Jhowdngm ErqryjxEOLSURGMBR0519-34-59 16:59:008.1[facility]annCHEM UUUIN4360-43-64 00:05:13729Ztlbmids HermannCHEM AZUQE0276-11-21 00:05:0751[facility]annCHEM PQYKD0516-33-13 00:05:071.65[facility]annCHE[facility] QYHAV3364-80-49 00:05:92281 [facility] TOLWQ2838-27-47 00:05:073.8[facility] HermannCHEM PANEL 2019-10-17 00:05:0799[facility]annCHE[facility] YGRTJ0561-63-40 00:05:0740[facility]annCHE[facility] PDNWI2817-16-89 00:05:074.8[facility]annCHEM ZYOHS3486-99-55 00:05:079.1[facility]annCHEM VIQHQ3048-28-06 00:05:0740[facility] [place] YNWDLZXPVB9757-76-89 00:05:078.4[facility] SbankcyORDXDMEFDO2213-10-03 00:05:071.5 [facility] MrtxnnnYQQCAONPDE3657-30-86 00:05:070.7[facility] HermannHEMATOLOGY 2019-10-17 00:05:0778.0[facility] JgahuhtPRSIALYVWJ8035-75-96 00:05:071.0[facility] FifvcvvTZYHPSXFAI3277-67-43 00:05:0714.0[facility] ZpnqhggFGJOQGBQOJ7829-53-03 00:05:077.0[facility] ItiwaerLWZQYJEHIP7032-76-89 00:05:070.0[facility] [place] STBBBNCRMK1382-06-07 00:05:071[facility] OjzleczVTEUVDERSP9854-59-47 00:05:071+ *ABN*(10/16/19 6:05 PM)[facility] OaneudkVDYCWNIUUO2508-02-28 00:05:071+ *ABN*(10/16/19 6:05 PM)[facility] PzjbafdKZFMFULNBU6325-25-98 00:05:07Moderate *ABN*(10/16/19 6:05 PM)[facility] UzzrsekPSNWJTQEYC3654-87-66 00:05:0710.6[facility] CijeiejHTOMURALYN7896-36-46 00:05:074.67[facility] HbgbbghBSRYJDKFOY7303-48-52 00:05:0711.5[facility] BilmlixRLQPVTJKEX2534-25-46 00:05:0736.7[facility] [place] ZRIRZQGHDJ8244-63-81 00:05:0778.6[facility] HnwxgpeITZIVASAAQ2622-29-45 00:05:07* Test Item Value Reference Range Interpretation Comments MCH (test code = MCH) 24.5 pg 27.0-31.0 [facility] AuhuvkfQGBYKGJECA0595-40-33 00:05:0731.2[facility] HermannHEMATOLOGY 2019-10-17 00:05:0718.7[facility] WorrayrBWSCIBYFTM6841-95-40 00:05:87367Qerozrlu McuceedTLAMDUFTHP1878-63-71 00:05:077.7[facility] CenterTwticuqUGCSPCZUAA6131-25-59 00:05:07* Test Item Value Reference Range Interpretation Comments PTT (test code = PTT) 26.9 s 22.9-35.8 [facility] CenterAagpeagMSVSZQWPAK9391-30-30 00:05:07* Test Item Value Reference Range Interpretation Comments PT (test code = PT) 15.1 s 12.0-14.7 [facility] CenterZlawvhjECFLVJZLMU3921-38-17 00:05:07* Test Item Value Reference Range Interpretation Comments INR (test code = INR) 1.18 1 0.85-1.17 [facility] SINGLE (PORTABLE)2019-10-16 13:29:00 [place] [address] Patient Name: STEVE BENEDICT MR #: [id number] : 1945 Age/Sex: 74/M Req #: [id number] Adm Physician: Ordered by: RENAE MENDOZA DO Report #: [id number] Location: ER Room/Bed: Procedure: [id number] DX/CHEST SINGLE (PORTABLE) Exam Date: 10/16/19 Exam [...] ABDOMEN:No free air under the diaphragm. 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 Superimposed pneumonia is possible in t he appropriate clinical setting. Signed by: Dr. Jose Manuel Person MD on 019 1:32 PM Dictated By: JOSE MANUEL PERSON MD 1332 Transcribed By: ERAN on 10/16/19 1332 COPY TO: RENAE MENDOZA DO Sodium Yfwmf1906-48-04 13:15:00* Test Item Value Reference Range Interpretation Comments Sodium Level (test code = 2951-2) 137 136-145 [facility] CenterPotassium Ufgri2973-35-33 13:15:00* Test Item Value Reference Range Interpretation Comments Potassium Level (test code = 2823-3) 4.3 3.5-5.1 [facility] CenterChloride Nmmap2539-24-98 13:15:00* Test Item Value Reference Range Interpretation Comments Chloride Level (test code = 2075-0) 89 98-107 L [facility] CenterCarbon Dioxide Eyerr5101-95-72 13:15:00* Test Item Value Reference Range Interpretation Comments Carbon Dioxide Level (test code = 2028-9) 37 22-29 H [facility] CenterAnion Abl0457-64-67 13:15:00* Test Item Value Reference Range Interpretation Comments Anion Gap (test code = 09811-5) 15.3 8-16 [facility] CenterBlood Urea Wjlvrhdv2635-23-71 13:15:00* Test Item Value Reference Range Interpretation Comments Blood Urea Nitrogen (test code = 3094-0) 50 7-26 H [facility] CenterCreatinine2019-12-21 13:15:00* Test Item Value Reference Range Interpretation Comments Creatinine (test code = 2160-0) 1.74 0.72-1.25 H [facility] CenterBUN/Creatinine Orsik7036-15-68 13:15:00* Test Item Value Reference Range Interpretation Comments BUN/Creatinine Ratio (test code = 3097-3) 29 6-25 H [facility] CenterEstimat Glomerular Filtration Rate 2019-10-16 13:15:00* Test Item Value Reference Range Interpretation Comments Estimat Glomerular Filtration Rate (test code = 025621050) 38 >60 L Ranges were taken from the National Kidney Disease Education Program and the [facility] literature.Reference ranges:60 or greater: Idkzww82-80 ( for 3 consecutive months): Chronic kidney disease 15 or less: Kidney failureHCA Houston Healthcare Medical CenterGlucose Vdwuj0270-25-43 13:15:00* Test Item Value Reference Range Interpretation Comments Glucose Level (test code = UOP5509) 172 74-118 H [facility] CenterCalcium Ylsri6293-07-92 13:15:00* Test Item Value Reference Range Interpretation Comments Calcium Level (test code = 33822-6) 9.4 8.4-10.2 [facility] CenterTotal Zzhabtgxt2844-94-60 13:15:00* Test Item Value Reference Range Interpretation Comments Total Bilirubin (test code = 1975-2) 0.4 0.2-1.2 [facility] CenterAspartate Amino Transf (AST/SGOT) 2019-10-16 13:15:00* Test Item Value Reference Range Interpretation Comments Aspartate Amino Transf (AST/SGOT) (test code = Aspartate Amino Transf (AST/SGOT)) 18 5-34 [facility] CenterAlanine Aminotransferase (ALT/SGPT) 2019-10-16 13:15:00* Test Item Value Reference Range Interpretation Comments Alanine Aminotransferase (ALT/SGPT) (test code = 1742-6) 29 0-55 [facility] CenterTotal Tjyogyb6856-27-48 13:15:00* Test Item Value Reference Range Interpretation Comments Total Protein (test code = 2885-2) 5.9 6.5-8.1 L [facility] CenterAlbumin2019-12-21 13:15:00* Test Item Value Reference Range Interpretation Comments Albumin (test code = 1751-7) 3.8 3.5-5.0 [facility] CenterGlobulin2019-12-21 13:15:00* Test Item Value Reference Range Interpretation Comments Globulin (test code = 71242-6) 2.1 2.3-3.5 L [facility] CenterAlbumin/Globulin Nlpvl8306-20-90 13:15:00 * Test Item Value Reference Range Interpretation Comments Albumin/Globulin Ratio (test code = 1759-0) 1.8 0.8-2.0 [facility] CenterAlkaline Lsncigokyvt6709-63-70 13:15:00* Test Item Value Reference Range Interpretation Comments Alkaline Phosphatase (test code = 6768-6) 84 40-150 [facility] Hhfea0801-27-72 13:15:00* Test Item Value Reference Range Interpretation Comments Sodium Level (test code = 2951-2) 137 136-145 [facility] CenterPotassium Emvbn4691-30-38 13:15:00* Test Item Value Reference Range Interpretation Comments Potassium Level (test code = 2823-3) 4.3 3.5-5.1 [facility] CenterChloride Sosxa1028-07-90 13:15:00* Test Item Value Reference Range Interpretation Comments Chloride Level (test code = 2075-0) 89 98-107 L [facility] CenterCarbon Dioxide Kjode0815-20-16 13:15:00* Test Item Value Reference Range Interpretation Comments Carbon Dioxide Level (test code = 2028-9) 37 22-29 H [facility] CenterAnion Urt9377-05-05 13:15:00* Test Item Value Reference Range Interpretation Comments Anion Gap (test code = 10156-1) 15.3 8-16 [facility] CenterBlood Urea Aezfjlvw5057-85-64 13:15:00* Test Item Value Reference Range Interpretation Comments Blood Urea Nitrogen (test code = 3094-0) 50 7-26 H [facility] CenterCreatinine2019-12-21 13:15:00* Test Item Value Reference Range Interpretation Comments Creatinine (test code = 2160-0) 1.74 0.72-1.25 H [facility] CenterBUN/Creatinine Hvyis7135-25-00 13:15:00* Test Item Value Reference Range Interpretation Comments BUN/Creatinine Ratio (test code = 3097-3) 29 6-25 H [facility] CenterEstimat Glomerular Filtration Rate 2019-10-16 13:15:00* Test Item Value Reference Range Interpretation Comments Estimat Glomerular Filtration Rate (test code = 997201633) 38 >60 L Ranges were taken from the National Kidney Disease Education Program and the [facility] Kid[facility] Foundation literature.Reference ranges:60 or greater: Dgrdes87-08 ( for 3 consecutive months): Chronic kidney disease 15 or less: Kidney failureHCA [facility] Healthcare Medical CenterGlucose Kwmso1620-75-78 13:15:00* Test Item Value Reference Range Interpretation Comments Glucose Level (test code = ASG7997) 172 74-118 H [facility] CenterCalcium Nycjz6396-11-87 13:15:00* Test Item Value Reference Range Interpretation Comments Calcium Level (test code = 94347-1) 9.4 8.4-10.2 [facility] CenterTotal Ldhvznagg9858-86-24 13:15:00* Test Item Value Reference Range Interpretation Comments Total Bilirubin (test code = 1975-2) 0.4 0.2-1.2 [facility] CenterAspartate Amino Transf (AST/SGOT) 2019-10-16 13:15:00* Test Item Value Reference Range Interpretation Comments Aspartate Amino Transf (AST/SGOT) (test code = Aspartate Amino Transf (AST/SGOT)) 18 5-34 [facility] CenterAlanine Aminotransferase (ALT/SGPT) 2019-10-16 13:15:00* Test Item Value Reference Range Interpretation Comments Alanine Aminotransferase (ALT/SGPT) (test code = 1742-6) 29 0-55 [facility] CenterTotal Aailtce3259-02-18 13:15:00* Test Item Value Reference Range Interpretation Comments Total Protein (test code = 2885-2) 5.9 6.5-8.1 L [facility] CenterAlbumin2019-12-21 13:15:00* Test Item Value Reference Range Interpretation Comments Albumin (test code = 1751-7) 3.8 3.5-5.0 [facility] CenterGlobulin2019-12-21 13:15:00* Test Item Value Reference Range Interpretation Comments Globulin (test code = 68495-3) 2.1 2.3-3.5 L [facility] CenterAlbumin/Globulin Rpzeu0709-24-37 13:15:00 * Test Item Value Reference Range Interpretation Comments Albumin/Globulin Ratio (test code = 1759-0) 1.8 0.8-2.0 [facility] CenterAlkaline Lzxbnmgiodt3641-00-89 13:15:00* Test Item Value Reference Range Interpretation Comments Alkaline Phosphatase (test code = 6768-6) 84 40-150 [facility] CenterArterial Blood jJ9805-25-08 13:05:00* Test Item Value Reference Range Interpretation Comments Arterial Blood pH (test code = 2744-1) 7.49 7.31-7.41 H [facility] CenterArterial Blood Partial Pressure CO2 2019-10-16 13:05:00* Test Item Value Reference Range Interpretation Comments Arterial Blood Partial Pressure CO2 (test code = 2018-8) 51 41-51 [facility] CenterArterial Blood Partial Pressure O2 2019-10-16 13:05:00* Test Item Value Reference Range Interpretation Comments Arterial Blood Partial Pressure O2 (test code = 2018-8) 97 80-105 [facility] CenterArterial Blood LTI87016-18-25 13:05:00* Test Item Value Reference Range Interpretation Comments Arterial Blood HCO3 (test code = 1960-4) 39 23-28 H [facility] CenterArterial Blood Base Rzwkdy7301-34-06 13:05:00* Test Item Value Reference Range Interpretation Comments Arterial Blood Base Excess (test code = 1925-7) 15.0 -2-3 H [facility] CenterArterial Blood Oxygen Saturation 2019-10-16 13:05:00* Test Item Value Reference Range Interpretation Comments Arterial Blood Oxygen Saturation (test code = 2708-6) 98.0 95-98 [facility] CenterFiO22019-12-21 13:05:00* Test Item Value Reference Range Interpretation Comments FiO2 (test code = FiO2) 24 NASAL CANNULA 2L CHIOMA FROM LEFT RADIALCHI [facility] Arterial Blood uX7030-34-95 13:05:00* Test Item Value Reference Range Interpretation Comments Arterial Blood pH (test code = 2744-1) 7.49 7.31-7.41 H [facility] CenterArterial Blood Partial Pressure CO2 2019-10-16 13:05:00* Test Item Value Reference Range Interpretation Comments Arterial Blood Partial Pressure CO2 (test code = 2018-) 51 41-51 [facility] CenterArterial Blood Partial Pressure O2 2019-10-16 13:05:00* Test Item Value Reference Range Interpretation Comments Arterial Blood Partial Pressure O2 (test code = 2019-05) 97 80-105 [facility] CenterArterial Blood EXO48637-65-60 13:05:00* Test Item Value Reference Range Interpretation Comments Arterial Blood HCO3 (test code = 1960-4) 39 23-28 H [facility] CenterArterial Blood Base Fjddsd6930-47-34 13:05:00* Test Item Value Reference Range Interpretation Comments Arterial Blood Base Excess (test code = 1925-7) 15.0 -2-3 H [facility] CenterArterial Blood Oxygen Saturation 2019-10-16 13:05:00* Test Item Value Reference Range Interpretation Comments Arterial Blood Oxygen Saturation (test code = 2708-6) 98.0 95-98 [facility] CenterFiO22019-12-21 13:05:00* Test Item Value Reference Range Interpretation Comments FiO2 (test code = FiO2) 24 NASAL CANNULA 2L CHIOMA FROM LEFT RADIALCHI [facility] White Blood Wwhds7885-75-00 13:04:00* Test Item Value Reference Range Interpretation Comments White Blood Count (test code = 6690-2) 12.11 4.8-10.8 H [facility] CenterRed Blood Eticy4948-96-63 13:04:00* Test Item Value Reference Range Interpretation Comments Red Blood Count (test code = 789-8) 5.08 4.3-5.7 [facility] CenterHemoglobin2019-12-21 13:04:00* Test Item Value Reference Range Interpretation Comments Hemoglobin (test code = 24236-6) 12.1 14.0-18.0 L [facility] CenterHematocrit2019-12-21 13:04:00* Test Item Value Reference Range Interpretation Comments Hematocrit (test code = 4544-3) 42.4 38.2-49.6 [facility] CenterMean Corpuscular Fwoeys5975-94-36 13:04:00* Test Item Value Reference Range Interpretation Comments Mean Corpuscular Volume (test code = 787-2) 83.5 81-99 [facility] CenterMean Corpuscular Rmpwfhbdhk3262-32-33 13:04:00* Test Item Value Reference Range Interpretation Comments Mean Corpuscular Hemoglobin (test code = 785-6) 23.8 28-32 L [facility] Corpuscular Hemoglobin Concent 2019-10-16 13:04:00* Test Item Value Reference Range Interpretation Comments Mean Corpuscular Hemoglobin Concent (test code = 786-4) 28.5 31-35 L [facility] CenterRed Cell Distribution Vcmdz1430-92-82 13:04:00* Test Item Value Reference Range Interpretation Comments Red Cell Distribution Width (test code = 28558-8) 17.4 11.7 -14.4 H [facility] CenterPlatelet Crbws6911-14-43 13:04:00* Test Item Value Reference Range Interpretation Comments Platelet Count (test code = 777-3) 204 140-360 [facility] CenterNeutrophils (%) (Auto)2019-10-16 13:04:00 * Test Item Value Reference Range Interpretation Comments Neutrophils (%) (Auto) (test code = 59770-6) 88.9 38.7-80.0 H [facility] CenterLymphocytes (%) (Auto)2019-10-16 13:04:00 * Test Item Value Reference Range Interpretation Comments Lymphocytes (%) (Auto) (test code = 736-9) 4.5 18.0-39.1 L [facility] CenterMonocytes (%) (Auto)2019-10-16 13:04:00* Test Item Value Reference Range Interpretation Comments Monocytes (%) (Auto) (test code = 5905-5) 4.4 4.4-11.3 [facility] CenterEosinophils (%) (Auto)2019-10-16 13:04:00 * Test Item Value Reference Range Interpretation Comments Eosinophils (%) (Auto) (test code = 713-8) 0.0 0.0-6.0 [facility] CenterBasophils (%) (Auto)2019-10-16 13:04:00* Test Item Value Reference Range Interpretation Comments Basophils (%) (Auto) (test code = 706-2) 0.1 0.0-1.0 [facility] CenterIM GRANULOCYTES %2019-10-16 13:04:00* Test Item Value Reference Range Interpretation Comments IM GRANULOCYTES % (test code = IM GRANULOCYTES %) 2.1 0.0- 1.0 H [facility] CenterNeutrophils # (Auto)2019-10-16 13:04:00* Test Item Value Reference Range Interpretation Comments Neutrophils # (Auto) (test code = 751-8) 10.8 2.1-6.9 H [facility] CenterLymphocytes # (Auto)2019-10-16 13:04:00* Test Item Value Reference Range Interpretation Comments Lymphocytes # (Auto) (test code = 93522-2) 0.6 1.0-3.2 L [facility] CenterMonocytes # (Auto)2019-10-16 13:04:00* Test Item Value Reference Range Interpretation Comments Monocytes # (Auto) (test code = 742-7) 0.5 0.2-0.8 [facility] CenterEosinophils # (Auto)2019-10-16 13:04:00* Test Item Value Reference Range Interpretation Comments Eosinophils # (Auto) (test code = 711-2) 0.0 0.0-0.4 [facility] CenterBasophils # (Auto)2019-10-16 13:04:00* Test Item Value Reference Range Interpretation Comments Basophils # (Auto) (test code = 704-7) 0.0 0.0-0.1 [facility] CenterAbsolute Immature Granulocyte (auto 2019-10-16 13:04:00* Test Item Value Reference Range Interpretation Comments Absolute Immature Granulocyte (auto (bharat t code = Absolute Immature Granulocyte (auto) 0.26 0-0.1 H [facility] CenterWhite Blood Tlwgs3592-26-99 13:04:00* Test Item Value Reference Range Interpretation Comments White Blood Count (test code = 6690-2) 12.11 4.8-10.8 H [facility] CenterRed Blood Jxlma9424-82-14 13:04:00* Test Item Value Reference Range Interpretation Comments Red Blood Count (test code = 789-8) 5.08 4.3-5.7 [facility] CenterHemoglobin2019-12-21 13:04:00* Test Item Value Reference Range Interpretation Comments Hemoglobin (test code = 12709-2) 12.1 14.0-18.0 L [facility] CenterHematocrit2019-12-21 13:04:00* Test Item Value Reference Range Interpretation Comments Hematocrit (test code = 4544-3) 42.4 38.2-49.6 [facility] CenterMean Corpuscular Rfjabd1453-57-10 13:04:00* Test Item Value Reference Range Interpretation Comments Mean Corpuscular Volume (test code = 787-2) 83.5 81-99 [facility] CenterMean Corpuscular Cuqchkoelh9788-50-06 13:04:00* Test Item Value Reference Range Interpretation Comments Mean Corpuscular Hemoglobin (test code = 785-6) 23.8 28-32 L [facility] CenterMean Corpuscular Hemoglobin Concent 2019-10-16 13:04:00* Test Item Value Reference Range Interpretation Comments Mean Corpuscular Hemoglobin Concent (test code = 786-4) 28.5 31-35 L [facility] CenterRed Cell Distribution Mcvme3189-77-57 13:04:00* Test Item Value Reference Range Interpretation Comments Red Cell Distribution Width (test code = 40369-9) 17.4 11.7 -14.4 H [facility] CenterPlatelet Tniht4296-14-79 13:04:00* Test Item Value Reference Range Interpretation Comments Platelet Count (test code = 777-3) 204 140-360 [facility] CenterNeutrophils (%) (Auto)2019-10-16 13:04:00 * Test Item Value Reference Range Interpretation Comments Neutrophils (%) (Auto) (test code = 17888-9) 88.9 38.7-80.0 H [facility] CenterLymphocytes (%) (Auto)2019-10-16 13:04:00 * Test Item Value Reference Range Interpretation Comments Lymphocytes (%) (Auto) (test code = 736-9) 4.5 18.0-39.1 L [facility] CenterMonocytes (%) (Auto)2019-10-16 13:04:00* Test Item Value Reference Range Interpretation Comments Monocytes (%) (Auto) (test code = 5905-5) 4.4 4.4-11.3 [facility] CenterEosinophils (%) (Auto)2019-10-16 13:04:00 * Test Item Value Reference Range Interpretation Comments Eosinophils (%) (Auto) (test code = 713-8) 0.0 0.0-6.0 [facility] CenterBasophils (%) (Auto)2019-10-16 13:04:00* Test Item Value Reference Range Interpretation Comments Basophils (%) (Auto) (test code = 706-2) 0.1 0.0-1.0 [facility] CenterIM GRANULOCYTES %2019-10-16 13:04:00* Test Item Value Reference Range Interpretation Comments IM GRANULOCYTES % (test code = IM GRANULOCYTES %) 2.1 0.0- 1.0 H [facility] CenterNeutrophils # (Auto)2019-10-16 13:04:00* Test Item Value Reference Range Interpretation Comments Neutrophils # (Auto) (test code = 751-8) 10.8 2.1-6.9 H [facility] CenterLymphocytes # (Auto)2019-10-16 13:04:00* Test Item Value Reference Range Interpretation Comments Lymphocytes # (Auto) (test code = 95918-4) 0.6 1.0-3.2 L [facility] CenterMonocytes # (Auto)2019-10-16 13:04:00* Test Item Value Reference Range Interpretation Comments Monocytes # (Auto) (test code = 742-7) 0.5 0.2-0.8 [facility] CenterEosinophils # (Auto)2019-10-16 13:04:00* Test Item Value Reference Range Interpretation Comments Eosinophils # (Auto) (test code = 711-2) 0.0 0.0-0.4 [facility] CenterBasophils # (Auto)2019-10-16 13:04:00* Test Item Value Reference Range Interpretation Comments Basophils # (Auto) (test code = 704-7) 0.0 0.0-0.1 [facility] CenterAbsolute Immature Granulocyte (auto 2019-10-16 13:04:00* Test Item Value Reference Range Interpretation Comments Absolute Immature Granulocyte (auto (bharat t code = Absolute Immature Granulocyte (auto) 0.26 0-0.1 H [facility] Pfuxdxo6924-79-57 14:26:00* Test Item Value Reference Range Interpretation Comments Bedside Glucose (test code = 25823-0) 165 70-120 H Meter ID: [id number] [facility] Glucose 2019-08-12 14:26:00* Test Item Value Reference Range Interpretation Comments Bedside Glucose (test code = 28363-5) 165 70-120 H Meter ID: [id number] [facility] Glucose 2019-08-12 14:26:00* Test Item Value Reference Range Interpretation Comments Bedside Glucose (test code = 53855-1) 165 70-120 H Meter ID: [id number] [facility] Medical CenterMagnesium Level 2019-08-12 06:27:00* Test Item Value Reference Range Interpretation Comments Magnesium Level (test code = 91724-4) 2.0 1.3-2.1 [facility] Gnkme8737-89-12 06:27:00* Test Item Value Reference Range Interpretation Comments Magnesium Level (test code = 46828-4) 2.0 1.3-2.1 [facility] CenterMagnesium Plker3948-54-78 06:27:00* Test Item Value Reference Range Interpretation Comments Magnesium Level (test code = 42285-3) 2.0 1.3-2.1 [facility] Muxtv7306-47-38 05:33:00* Test Item Value Reference Range Interpretation Comments Sodium Level (test code = 2951-2) 142 136-145 [facility] CenterPotassium Qxvrt4322-64-05 05:33:00* Test Item Value Reference Range Interpretation Comments Potassium Level (test code = 2823-3) 4.0 3.5-5.1 [facility] CenterChloride Wttgb7105-19-77 05:33:00* Test Item Value Reference Range Interpretation Comments Chloride Level (test code = 2075-0) 97 98-107 L [facility] CenterCarbon Dioxide Hwpgk6577-56-76 05:33:00* Test Item Value Reference Range Interpretation Comments Carbon Dioxide Level (test code = 2028-9) 39 22-29 H [facility] CenterAnion Afi2083-54-41 05:33:00* Test Item Value Reference Range Interpretation Comments Anion Gap (test code = 17285-2) 10.0 8-16 [facility] CenterBlood Urea Wnfpoxzr7330-41-31 05:33:00* Test Item Value Reference Range Interpretation Comments Blood Urea Nitrogen (test code = 3094-0) 25 7-26 [facility] CenterCreatinine2019-10-17 05:33:00* Test Item Value Reference Range Interpretation Comments Creatinine (test code = 2160-0) 1.22 0.72-1.25 [facility] CenterBUN/Creatinine Hsgxz7785-97-23 05:33:00* Test Item Value Reference Range Interpretation Comments BUN/Creatinine Ratio (test code = 3097-3) 20 6-25 [facility] CenterEstimat Glomerular Filtration Rate 2019-08-12 05:33:00* Test Item Value Reference Range Interpretation Comments Estimat Glomerular Filtration Rate (test code = 568142708) 58 >60 L Ranges were taken from the National Kidney Disease Education Program and the [facility] Foundation literature.Reference ranges:60 or greater: Vzlree60-28 ( for 3 consecutive months): Chronic kidney disease 15 or less: Kidney failureHCA [facility] Healthcare Medical CenterGlucose Vooex0633-09-14 05:33:00* Test Item Value Reference Range Interpretation Comments Glucose Level (test code = KZS3803) 113 74-118 [facility] CenterCalcium Ocjfo3621-18-75 05:33:00* Test Item Value Reference Range Interpretation Comments Calcium Level (test code = 83733-7) 9.0 8.4-10.2 [facility] CenterBlsandstone [facility] Cbnysfg5167-88-98 20:49:00* Test Item Value Reference Range Interpretation Comments Blood Culture (test code = 30702895) NO GROWTH AFTER 5 DAYS, FINAL REPORT [facility] Xcnulkr2070-07-28 20:49:00* Test Item Value Reference Range Interpretation Comments Blood Culture (test code = 12973046) NO GROWTH AFTER 5 DAYS, FINAL REPORT [facility] Mdskezv6111-34-67 20:49:00* Test Item Value Reference Range Interpretation Comments Blood Culture (test code = 68508478) NO GROWTH AFTER 5 DAYS, FINAL REPORT [facility] CenterELBOW RIGHT NCNMWIEL5971-07-02 07:24:00 [place] [address] Patient Name: STEVE BENEDICT MR #: [id number] : [birth year] Age/Sex: 73/M Req #: [id number] Adm Physician: DORIS PERALES MD Ordered by: DORIS PERALES MD Report #: [id number] Location: [facility] Room/Bed: [place] [address] Procedure: [id number] DX /ELBOW RIGHT COMPLETE Exam Date: 08/10/19 Exam Time: 0600 REPORT STATUS: Signed ELBO W RIGHT COMPLETE - 3 views HISTORY: Pain COMPARISON: None available. FINDINGS: Bones: No acute displaced fracture. Osseous alignment i s within normal limits. Joints: The joint spaces are well-maintained. Soft tissues: The soft tissues appear unremarkable. IMPRESSION: N o acute radiographic abnormality. Signed by: Dr. Dakota Mireles MD on 08/10 7:25 AM Dictated By: DAKOTA MIRELES MD 4 Transcribed By: ERAN on 08/10/19724 COPY TO: DORIS PERALES MD CT BRAIN IK2466-36-40 06:19:00 [place] [address] Patient Name: STEVE BENEDICT MR #: [id number] : 1945 Age/Sex: 73/M Req #: [id number] Adm Physician: DORIS PERALES MD Ordered by: DORIS PERALES MD Report #: [id number] Location: [facility] Room/Bed: [place] [address] Procedure: [id number] CT /CT BRAIN WO Exam Date: 08/10/19 [...] sinuses: No abnormal density suggestive of thrombosis. Ventricles : Mild compensated dilatation due to volume loss. No hydrocephalus. Extr a-axial spaces: No abnormal density. Brain volume: Mild generalized cere bral volume loss. Craniocervical junction: No mass, Chiari malformation, o r basilar invagination. Sella: No mass. Paranasal/mastoid sinuses : Mild mucosal thickening in left posterior ethmoid sinus. IMPRESSION: 1. Moderate right frontal parietal scalp soft tissue edema/hematoma. No ac [place] fracture. 2. Suboptimal evaluation due to motion artifacts, despite t he limitation no gross acute intracranial abnormality. 3. Mild supratento rial white matter microvascular ischemic change and mild generalized cerebral volume loss. Signed by: Dr. Georgina Rodriguez M.D. on 08/10/2019 6:24 AM Dictated By: GEORGINA RODRIGUEZ MD 3 Transcribed By: ERAN on 08/10/19623 COPY TO: DORIS KAUFMAN MD White Blood Jzyri9323-13-09 05:17:00* Test Item Value Reference Range Interpretation Comments White Blood Count (test code = 6690-2) 7.17 4.8-10.8 [facility] CenterRed Blood Cfcvq5421-17-00 05:17:00* Test Item Value Reference Range Interpretation Comments Red Blood Count (test code = 789-8) 4.07 4.3-5.7 L [facility] CenterHemoglobin2019-10-13 05:17:00* Test Item Value Reference Range Interpretation Comments Hemoglobin (test code = 66341-0) 9.5 14.0-18.0 L [facility] CenterHematocrit2019-10-13 05:17:00* Test Item Value Reference Range Interpretation Comments Hematocrit (test code = 4544-3) 33.6 38.2-49.6 L [facility] CenterMean Corpuscular Cvcpyd9346-77-44 05:17:00* Test Item Value Reference Range Interpretation Comments Mean Corpuscular Volume (test code = 787-2) 82.6 81-99 [facility] CenterMean Corpuscular Xpiiytjftk6773-59-31 05:17:00* Test Item Value Reference Range Interpretation Comments Mean Corpuscular Hemoglobin (test code = 785-6) 23.3 28-32 L [facility] CenterMean Corpuscular Hemoglobin Concent 2019-08-08 05:17:00* Test Item Value Reference Range Interpretation Comments Mean Corpuscular Hemoglobin Concent (test code = 786-4) 28.3 31-35 L [facility] CenterRed Cell Distribution Hqfuu1910-93-68 05:17:00* Test Item Value Reference Range Interpretation Comments Red Cell Distribution Width (test code = 83918-3) 17.3 11.7 -14.4 H [facility] CenterPlatelet Koezd9125-89-01 05:17:00* Test Item Value Reference Range Interpretation Comments Platelet Count (test code = 777-3) 202 140-360 [facility] CenterNeutrophils (%) (Auto)2019-08-08 05:17:00 * Test Item Value Reference Range Interpretation Comments Neutrophils (%) (Auto) (test code = 77076-2) 90.9 38.7-80.0 H [facility] CenterLymphocytes (%) (Auto)2019-08-08 05:17:00 * Test Item Value Reference Range Interpretation Comments Lymphocytes (%) (Auto) (test code = 736-9) 5.6 18.0-39.1 L [facility] CenterMonocytes (%) (Auto)2019-08-08 05:17:00* Test Item Value Reference Range Interpretation Comments Monocytes (%) (Auto) (test code = 5905-5) 2.6 4.4-11.3 L [facility] CenterEosinophils (%) (Auto)2019-08-08 05:17:00 * Test Item Value Reference Range Interpretation Comments Eosinophils (%) (Auto) (test code = 713-8) 0.0 0.0-6.0 [facility] CenterBasophils (%) (Auto)2019-08-08 05:17:00* Test Item Value Reference Range Interpretation Comments Basophils (%) (Auto) (test code = 706-2) 0.1 0.0-1.0 [facility] CenterIM GRANULOCYTES %2019-08-08 05:17:00* Test Item Value Reference Range Interpretation Comments IM GRANULOCYTES % (test code = IM GRANULOCYTES %) 0.8 0.0- 1.0 [facility] CenterNeutrophils # (Auto)2019-08-08 05:17:00* Test Item Value Reference Range Interpretation Comments Neutrophils # (Auto) (test code = 751-8) 6.5 2.1-6.9 [facility] CenterLymphocytes # (Auto)2019-08-08 05:17:00* Test Item Value Reference Range Interpretation Comments Lymphocytes # (Auto) (test code = 82789-6) 0.4 1.0-3.2 L [facility] CenterMonocytes # (Auto)2019-08-08 05:17:00* Test Item Value Reference Range Interpretation Comments Monocytes # (Auto) (test code = 742-7) 0.2 0.2-0.8 [facility] CenterEosinophils # (Auto)2019-08-08 05:17:00* Test Item Value Reference Range Interpretation Comments Eosinophils # (Auto) (test code = 711-2) 0.0 0.0-0.4 [facility] CenterBasophils # (Auto)2019-08-08 05:17:00* Test Item Value Reference Range Interpretation Comments Basophils # (Auto) (test code = 704-7) 0.0 0.0-0.1 [facility] CenterAbsolute Immature Granulocyte (auto 2019-08-08 05:17:00* Test Item Value Reference Range Interpretation Comments Absolute Immature Granulocyte (auto (bharat t code = Absolute Immature Granulocyte (auto) 0.06 0-0.1 [facility] CenterCreatine Kinase MA7480-09-85 15:54:00* Test Item Value Reference Range Interpretation Comments Creatine Kinase MB (test code = 15030-9) 2.60 0-5.0 [place] [address]99019-10-11 15:54:00* Test Item Value Reference Range Interpretation Comments Troponin I (test code = HVT0577) 0.037 0-0.300 [facility] CenterCreatine Kinase VO6274-00-95 15:54:00* Test Item Value Reference Range Interpretation Comments Creatine Kinase MB (test code = 23165-3) 2.60 0-5.0 [place] 528[address]019-10-11 15:54:00* Test Item Value Reference Range Interpretation Comments Troponin I (test code = VAA2750) 0.037 0-0.300 [facility] CenterCreatine Kinase FP7592-21-91 15:54:00* Test Item Value Reference Range Interpretation Comments Creatine Kinase MB (test code = 98285-1) 2.60 0-5.0 [place] 528[address]019-10-11 15:54:00* Test Item Value Reference Range Interpretation Comments Troponin I (test code = GLU1290) 0.037 0-0.300 [facility] CenterCreatine Qambzc0117-93-02 15:46:00* Test Item Value Reference Range Interpretation Comments Creatine Kinase (test code = 2157-6) 20 30-200 L [facility] CenterCreatine Medptr9996-22-84 15:46:00* Test Item Value Reference Range Interpretation Comments Creatine Kinase (test code = 2157-6) 20 30-200 L [facility] CenterCreatine Teafxi8795-02-35 15:46:00* Test Item Value Reference Range Interpretation Comments Creatine Kinase (test code = 2157-6) 20 30-200 L [facility] CenterTotal Eyibhjirx6189-40-91 08:24:00* Test Item Value Reference Range Interpretation Comments Total Bilirubin (test code = 1975-2) 0.2 0.2-1.2 [facility] CenterAspartate Amino Transf (AST/SGOT) 2019-08-06 08:24:00* Test Item Value Reference Range Interpretation Comments Aspartate Amino Transf (AST/SGOT) (test code = Aspartate Amino Transf (AST/SGOT)) 22 5-34 [facility] CenterAlanine Aminotransferase (ALT/SGPT) 2019-08-06 08:24:00* Test Item Value Reference Range Interpretation Comments Alanine Aminotransferase (ALT/SGPT) (test code = 1742-6) 30 0-55 [facility] CenterTotal Xdqeghd2782-21-88 08:24:00* Test Item Value Reference Range Interpretation Comments Total Protein (test code = 2885-2) 5.7 6.5-8.1 L [facility] CenterAlbumin2019-10-11 08:24:00* Test Item Value Reference Range Interpretation Comments Albumin (test code = 1751-7) 2.7 3.5-5.0 L [facility] CenterGlobulin2019-10-11 08:24:00* Test Item Value Reference Range Interpretation Comments Globulin (test code = 34250-9) 3.0 2.3-3.5 [facility] CenterAlbumin/Globulin Mepuj0946-80-86 08:24:00 * Test Item Value Reference Range Interpretation Comments Albumin/Globulin Ratio (test code = 1759-0) 0.9 0.8-2.0 [facility] CenterAlkaline Aygxbbtsvyt6302-38-42 08:24:00* Test Item Value Reference Range Interpretation Comments Alkaline Phosphatase (test code = 6768-6) 82 40-150 [facility] CenterCHEST SINGLE (PORTABLE)2019-08-06 06:57:00 [facility] [address] [place] [address] Patient Name: STEVE BENEDICT MR #: [id number] : 1945 Age/Sex: 73/M Req #: [id number] Adm Physician: ROSALIE MEDINA MD Ordered by: IBAN RAMOS MD Report #: [id number] Location: [facility] Room/Bed: [place] [address] Procedure: [id number] DX /CHEST SINGLE (PORTABLE) Exam Date: Exam [...] IBAN RAMOS MD Influenza Virus Types A,B Wssphhs0699-15-00 00:02:00* Test Item Value Reference Range Interpretation Comments Influenza Virus Types A,B Antigen (test code = 47500-6) POSITIVE FLU A NEGATIVE H Results called to at 0001 on 08/06/19 [facility] [place].Results called to infection control at 0001 on 08/06/19 by [facility] CenterInfluenza Virus Types A,B Ohctojf8076-52-31 00:02:00* Test Item Value Reference Range Interpretation Comments Influenza Virus Types A,B Antigen (test code = 22906-1) POSITIVE FLU A NEGATIVE H Results called to at 0001 on 08/06/19 [facility] [place].Results called to infection control at 0001 on 08/06/19 by [facility] CenterInfluenza Virus Types A,B Ioizyti9618-76-89 00:02:00* Test Item Value Reference Range Interpretation Comments Influenza Virus Types A,B Antigen (test code = 89324-8) POSITIVE FLU A NEGATIVE H Results called to at 0001 on 08/06/19 by [facility] [place].Results called to infection control at 0001 on 08/06/19 by [facility] CenterArterial Blood bQ8802-27-18 23:59:00* Test Item Value Reference Range Interpretation Comments Arterial Blood pH (test code = 2744-1) 7.39 7.31-7.41 [facility] CenterArterial Blood Partial Pressure CO2 2019-08-05 23:59:00* Test Item Value Reference Range Interpretation Comments Arterial Blood Partial Pressure CO2 (test code = 2018-) 58 41-51 H [facility] CenterArterial Blood Partial Pressure O2 2019-08-05 23:59:00* Test Item Value Reference Range Interpretation Comments Arterial Blood Partial Pressure O2 (test code = 2019-05) 98 80-105 [facility] CenterArterial Blood KWJ58494-00-98 23:59:00* Test Item Value Reference Range Interpretation Comments Arterial Blood HCO3 (test code = 1960-4) 35 23-28 H [facility] CenterArterial Blood Base Pfuihz7221-93-11 23:59:00* Test Item Value Reference Range Interpretation Comments Arterial Blood Base Excess (test code = 1925-7) 10.0 -2-3 H [facility] CenterArterial Blood Oxygen Saturation 2019-08-05 23:59:00* Test Item Value Reference Range Interpretation Comments Arterial Blood Oxygen Saturation (test code = 2708-6) 97.0 95-98 [facility] CenterFiO22019-10-10 23:59:00* Test Item Value Reference Range Interpretation Comments FiO2 (test code = FiO2) 36 Pt on 4L [place].[facility] CenterCT CHEST QV6844-76-91 22:47:00 [facility] [address] [place] [address] Patient Name: STEVE BENEDICT MR #: [id number] : 1945 Age/Sex: 73/M Req #: [id number] Adm Physician: Ordered by: IBAN RAMOS MD Report #: [id number] Location: ER Room/Bed: Procedure: [id number] CT/ CT CHEST WO Exam Date: 08/05/19 Exam Time: 2225 REPORT STATUS: Signed EXAM: CT Chest WITHOUT [...] PLEURA: The pleural spaces are clear. HEART AN D MEDIASTINUM: The thyroid gland is normal. No [...] visualized. Remote posterior left-sided rib fractures. Multilevel degenerativ e changes of the imaged thoracolumbar spine with thoracic spondylosis. SO FT TISSUES: Unremarkable. IMPRESSION: Bilateral predominantly upper lobe pulmonary emphysema. Irregular densities in the lingula and lung bases, left greater right suggestive of pleural parenchymal scarring. Signed by: Dr. Naomy Arizmendi M.D. on 08/05/2019 11:15 PM Dictated By: ANNE MARIE RAMÍREZ MD, MD 14 Tra nscribed By: ERAN on 08/05/192314 COPY TO: IBAN RAMOS MD CHEST SINGLE (PORTABLE)2019-08-05 22:19:00 [place] [address] Patient Name: STEVE BENEDICT MR #: [id number] : 1945 Age/Sex: 73/M Req #: [id number] Adm Physician: Ordered by: IBAN RAMOS MD Report #: [id number] Location: ER Room/Bed: Procedure: [id number] DX/ CHEST SINGLE (PORTABLE) Exam Date: 08/05/19 Exam Matt e: 2135 REPORT STATUS: Signed EX AMINATION: CHEST SINGLE (PORTABLE) INDICATION: Cough. Hypotension. COMPARISON: 06/16/2019. FINDINGS: LINES/TUBES:None LUNGS:Th e lungs are moderately inflated. Patchy density in [...] scarring, however, cannot exclude superimposed infection the [facility] clinical setting. Signed by: Dr. Naomy Arizmendi M.D. on 10:22 PM Dictated By: ANNE MARIE ARIZMENDI MD, MD 21 Transcribed By: ERAN on 08/05/192221 COPY TO: IBAN RAMOS MD Urine ELR0758-65-56 21:44:00* Test Item Value Reference Range Interpretation Comments Urine WBC (test code = 5821-4) 0-5 0-5 [facility] CenterUrine FMY2422-40-02 21:44:00* Test Item Value Reference Range Interpretation Comments Urine RBC (test code = 63005-2) NONE 0-5 [facility] CenterUrine Ijxrtcwk2335-16-32 21:44:00* Test Item Value Reference Range Interpretation Comments Urine Bacteria (test code = 03850-8) NONE NONE [facility] CenterUrine Epithelial Glswg4369-85-58 21:44:00 * Test Item Value Reference Range Interpretation Comments Urine Epithelial Cells (test code = 20234-7) FEW NONE [facility] CenterUrine AMO6555-98-57 21:44:00* Test Item Value Reference Range Interpretation Comments Urine WBC (test code = 5821-4) 0-5 0-5 [facility] CenterUrine ULD5797-22-50 21:44:00* Test Item Value Reference Range Interpretation Comments Urine RBC (test code = 07169-1) NONE 0-5 [facility] CenterUrine Oltrkpcr5663-78-56 21:44:00* Test Item Value Reference Range Interpretation Comments Urine Bacteria (test code = 90294-8) NONE NONE [facility] CenterUrine Epithelial Iidrq3130-48-86 21:44:00 * Test Item Value Reference Range Interpretation Comments Urine Epithelial Cells (test code = 20043-1) FEW NONE [facility] CenterUrine RBS9057-54-40 21:44:00* Test Item Value Reference Range Interpretation Comments Urine WBC (test code = 5821-4) 0-5 0-5 [facility] CenterUrine WDB2980-47-36 21:44:00* Test Item Value Reference Range Interpretation Comments Urine RBC (test code = 69318-6) NONE 0-5 [facility] CenterUrine Qxxvolwf9264-41-52 21:44:00* Test Item Value Reference Range Interpretation Comments Urine Bacteria (test code = 59479-9) NONE NONE [facility] CenterUrine Epithelial Fzcog4947-28-48 21:44:00 * Test Item Value Reference Range Interpretation Comments Urine Epithelial Cells (test code = 18659-3) FEW NONE [facility] CenterUrine Xqifn2540-69-43 21:38:00* Test Item Value Reference Range Interpretation Comments Urine Color (test code = 5778-6) YELLOW YELLOW [facility] CenterUrine Uotrben4586-23-99 21:38:00* Test Item Value Reference Range Interpretation Comments Urine Clarity (test code = 77544-9) SL CLOUDY CLEAR H [facility] CenterUrine Specific Cldnpqh3448-48-10 21:38:00 * Test Item Value Reference Range Interpretation Comments Urine Specific Devol (test code = 5811-5) 1.010 1.010-1.02 5 [facility] CenterUrine uY0006-35-57 21:38:00* Test Item Value Reference Range Interpretation Comments Urine pH (test code = 33568-4) 6 5-7 [facility] CenterUrine Leukocyte Wqxkkpke7596-72-17 21:38:00* Test Item Value Reference Range Interpretation Comments Urine Leukocyte Esterase (test code = 5799-2) NEGATIVE NEGATIVE [facility] CenterUrine Dhyxzmr0041-97-58 21:38:00* Test Item Value Reference Range Interpretation Comments Urine Nitrite (test code = 95618-1) NEGATIVE NEGATIVE [facility] CenterUrine Vyrbtqu5755-68-74 21:38:00* Test Item Value Reference Range Interpretation Comments Urine Protein (test code = 5804-0) NEGATIVE NEGATIVE [facility] CenterUrine Glucose (UA)2019-08-05 21:38:00* Test Item Value Reference Range Interpretation Comments Urine Glucose (UA) (test code = 2349-9) NEGATIVE NEGATIVE [facility] CenterUrine Yhheolw3914-99-22 21:38:00* Test Item Value Reference Range Interpretation Comments Urine Ketones (test code = 14571-9) NEGATIVE NEGATIVE [facility] CenterUrine Relubfohwkas5469-56-97 21:38:00* Test Item Value Reference Range Interpretation Comments Urine Urobilinogen (test code = 34475-8) 0.2 0.2-1 [facility] CenterUrine Ddxrrrhpw0083-35-58 21:38:00* Test Item Value Reference Range Interpretation Comments Urine Bilirubin (test code = 1978-6) NEGATIVE NEGATIVE [facility] CenterUrine Vvnsj5813-32-31 21:38:00* Test Item Value Reference Range Interpretation Comments Urine Blood (test code = 31579-0) NEGATIVE NEGATIVE [facility] CenterUrine Edmlq2739-42-05 21:38:00* Test Item Value Reference Range Interpretation Comments Urine Color (test code = 5778-6) YELLOW YELLOW [facility] CenterUrine Yurbath5942-92-93 21:38:00* Test Item Value Reference Range Interpretation Comments Urine Clarity (test code = 16935-6) SL CLOUDY CLEAR H [facility] CenterUrine Specific Nldovzi3635-74-06 21:38:00 * Test Item Value Reference Range Interpretation Comments Urine Specific Devol (test code = 5811-5) 1.010 1.010-1.02 5 [facility] CenterUrine vF4441-07-92 21:38:00* Test Item Value Reference Range Interpretation Comments Urine pH (test code = 03352-6) 6 5-7 [facility] CenterUrine Leukocyte Jfzwbkwl2833-06-38 21:38:00* Test Item Value Reference Range Interpretation Comments Urine Leukocyte Esterase (test code = 5799-2) NEGATIVE NEGATIVE [facility] Mwlghih3326-15-41 21:38:00* Test Item Value Reference Range Interpretation Comments Urine Nitrite (test code = 21892-0) NEGATIVE NEGATIVE [facility] Einvecz6500-32-31 21:38:00* Test Item Value Reference Range Interpretation Comments Urine Protein (test code = 5804-0) NEGATIVE NEGATIVE [facility] Glucose (UA)2019-08-05 21:38:00* Test Item Value Reference Range Interpretation Comments Urine Glucose (UA) (test code = 2349-9) NEGATIVE NEGATIVE [facility] CenterUrine Itwpyyy9875-65-98 21:38:00* Test Item Value Reference Range Interpretation Comments Urine Ketones (test code = 90686-8) NEGATIVE NEGATIVE [facility] Zyobeilpdqql7664-88-27 21:38:00* Test Item Value Reference Range Interpretation Comments Urine Urobilinogen (test code = 83962-6) 0.2 0.2-1 [facility] CenterUrine Bljxpezwk1474-36-70 21:38:00* Test Item Value Reference Range Interpretation Comments Urine Bilirubin (test code = 1978-6) NEGATIVE NEGATIVE [facility] Qlzci4599-10-44 21:38:00* Test Item Value Reference Range Interpretation Comments Urine Blood (test code = 26945-8) NEGATIVE NEGATIVE [facility] CenterUrine Bjwim2334-21-01 21:38:00* Test Item Value Reference Range Interpretation Comments Urine Color (test code = 5778-6) YELLOW YELLOW [facility] CenterUrine Xgkvkib5023-40-43 21:38:00* Test Item Value Reference Range Interpretation Comments Urine Clarity (test code = 59786-1) SL CLOUDY CLEAR H [facility] CenterUrine Specific Gdfadyb2651-99-00 21:38:00 * Test Item Value Reference Range Interpretation Comments Urine Specific Devol (test code = 5811-5) 1.010 1.010-1.02 5 [facility] CenterUrine nU7309-47-09 21:38:00* Test Item Value Reference Range Interpretation Comments Urine pH (test code = 83463-6) 6 5-7 [facility] CenterUrine Leukocyte Zmazpjzj1130-13-98 21:38:00* Test Item Value Reference Range Interpretation Comments Urine Leukocyte Esterase (test code = 5799-2) NEGATIVE NEGATIVE [facility] Bsfcgam4445-77-16 21:38:00* Test Item Value Reference Range Interpretation Comments Urine Nitrite (test code = 53142-9) NEGATIVE NEGATIVE [facility] CenterUrine Mkkucul4223-92-81 21:38:00* Test Item Value Reference Range Interpretation Comments Urine Protein (test code = 5804-0) NEGATIVE NEGATIVE [facility] CenterUrine Glucose (UA)2019-08-05 21:38:00* Test Item Value Reference Range Interpretation Comments Urine Glucose (UA) (test code = 2349-9) NEGATIVE NEGATIVE [facility] Kpvvolh6595-98-92 21:38:00* Test Item Value Reference Range Interpretation Comments Urine Ketones (test code = 86954-1) NEGATIVE NEGATIVE [facility] CenterUrine Lyaecvwjbbhu2198-20-01 21:38:00* Test Item Value Reference Range Interpretation Comments Urine Urobilinogen (test code = 36362-5) 0.2 0.2-1 [facility] CenterUrine Auepqiuhk9370-20-32 21:38:00* Test Item Value Reference Range Interpretation Comments Urine Bilirubin (test code = 1978-6) NEGATIVE NEGATIVE [facility] CenterUrine Msqqx6663-87-93 21:38:00* Test Item Value Reference Range Interpretation Comments Urine Blood (test code = 98733-3) NEGATIVE NEGATIVE [facility] CenterB-Type Natriuretic Zrtcukl3244-64-27 21:13:00* Test Item Value Reference Range Interpretation Comments B-Type Natriuretic Peptide (test code = 54391-3) 217.3 0-100 H [facility] CenterB-Type Natriuretic Zegljty6424-16-46 21:13:00* Test Item Value Reference Range Interpretation Comments B-Type Natriuretic Peptide (test code = 12957-2) 217.3 0-100 H [facility] CenterB-Type Natriuretic Dpidehb2881-58-72 21:13:00* Test Item Value Reference Range Interpretation Comments B-Type Natriuretic Peptide (test code = 27581-5) 217.3 0-100 H [facility] CenterLactic Acid Athnx6821-45-56 20:57:00* Test Item Value Reference Range Interpretation Comments Lactic Acid Level (test code = Lactic Acid Level) 7.4 4.5- 19.8 [facility] CenterLactic Acid Dxtam3742-75-39 20:57:00* Test Item Value Reference Range Interpretation Comments Lactic Acid Level (test code = Lactic Acid Level) 7.4 4.5- 19.8 [facility] CenterLactic Acid Ynvuf3440-24-01 20:57:00* Test Item Value Reference Range Interpretation Comments Lactic Acid Level (test code = Lactic Acid Level) 7.4 4.5- 19.8 [facility] CenterProthrombin Igqh6996-71-07 20:56:00* Test Item Value Reference Range Interpretation Comments Prothrombin Time (test code = 5902-2) 19.3 11.9-14.5 H [facility] CenterProthromb Time International Ratio 2019-08-05 20:56:00* Test Item Value Reference Range Interpretation Comments Prothromb Time International Ratio (test code = 6301-6) 1.56 Oral Anticoagulant Therapy INR Values:1. Low Intensity Therapy 1.5 - 2.02 . Moderate Intensity Therapy 2.0 - 3.03. High Intensity Therapy(1) 2.5 - 3. 54. High Intensity Therapy(2) 3.0 - 4.05. Panic Value INR > 5.0 [facility] CenterActivated Partial Thromboplast Time 2019-08-05 20:56:00* Test Item Value Reference Range Interpretation Comments Activated Partial Thromboplast Time (test code = 16139-6) 46.8 23.8-35.5 H [facility] CenterProthrombin Jzjq8845-54-27 20:56:00* Test Item Value Reference Range Interpretation Comments Prothrombin Time (test code = 5902-2) 19.3 11.9-14.5 H [facility] CenterProthromb Time International Ratio 2019-08-05 20:56:00* Test Item Value Reference Range Interpretation Comments Prothromb Time International Ratio (test code = 6301-6) 1.56 Oral Anticoagulant Therapy INR Values:1. Low Intensity Therapy 1.5 - 2.02 . Moderate Intensity Therapy 2.0 - 3.03. High Intensity Therapy(1) 2.5 - 3. 54. High Intensity Therapy(2) 3.0 - 4.05. Panic Value INR > 5.0 [facility] CenterActivated Partial Thromboplast Time 2019-08-05 20:56:00* Test Item Value Reference Range Interpretation Comments Activated Partial Thromboplast Time (test code = 03470-2) 46.8 23.8-35.5 H [facility] CenterProthrombin Fyim1811-69-50 20:56:00* Test Item Value Reference Range Interpretation Comments Prothrombin Time (test code = 5902-2) 19.3 11.9-14.5 H [facility] CenterProthromb Time International Ratio 2019-08-05 20:56:00* Test Item Value Reference Range Interpretation Comments Prothromb Time International Ratio (test code = 6301-6) 1.56 Oral Anticoagulant Therapy INR Values:1. Low Intensity Therapy 1.5 - 2.02 . Moderate Intensity Therapy 2.0 - 3.03. High Intensity Therapy(1) 2.5 - 3. 54. High Intensity Therapy(2) 3.0 - 4.05. Panic Value INR > 5.0 [facility] CenterActivated Partial Thromboplast Time 2019-08-05 20:56:00* Test Item Value Reference Range Interpretation Comments Activated Partial Thromboplast Time (test code = 98158-4) 46.8 23.8-35.5 [facility] 06:18:00* Test Item Value Reference Range Interpretation Comments Renin (test code = 2915-7) 5.618 0.167-5.380 H This test was developed and its performance characteristicsdetermined by [employer] . It has not been cleared orapproved by the Food and Drug Administration.Perform ed at: [address] [id number] Dir chepe: Charanjit Godwin MD, Phone: [phone] Methodist Hospitalin2019-08-24 06:18:00* Test Item Value Reference Range Interpretation Comments Renin (test code = 2915-7) 5.618 0.167-5.380 H This test was developed and its performance characteristicsdetermined by [employer] . It has not been cleared orapproved by the Food and Drug Administration.Perform ed at: [address] [id number] Dir chepe: Charanjit Godwin MD, Phone: [phone] Methodist Hospitalin2019-08-24 06:18:00* Test Item Value Reference Range Interpretation Comments Renin (test code = 2915-7) 5.618 0.167-5.380 H This test was developed and its performance characteristicsdetermined by [employer] . It has not been cleared orapproved by the Food and Drug Administration.Perform ed at: [address] [id number] Dir chepe: Charanjit Godwin MD, Phone: [phone]. David's Medical Centerosterone2019-08-21 22:03:00* Test Item Value Reference Range Interpretation Comments Aldosterone (test code = 1763-2) 2.5 0.0-30.0 This test was developed and its performance characteristicsdetermined by [employer] . It has not been cleared orapproved by the Food and Drug Administration.Perform ed at: [address] [id number] Dir chepe: Charanjit Godwin MD, Phone: [phone] [facility] KingwoodAldosterone2019-08-21 22:03:00* Test Item Value Reference Range Interpretation Comments Aldosterone (test code = 1763-2) 2.5 0.0-30.0 This test was developed and its performance characteristicsdetermined by [employer] . It has not been cleared orapproved by the Food and Drug Administration.Perform ed at: [address] [id number] Dir chepe: Charanjit Godwin MD, Phone: [phone] [facility] Healthcare Medical CenterAldosterone2019-08-21 22:03:00* Test Item Value Reference Range Interpretation Comments Aldosterone (test code = 1763-2) 2.5 0.0-30.0 This test was developed and its performance characteristicsdetermined by [employer] . It has not been cleared orapproved by the Food and Drug Administration.Perform ed at: [address] [id number] Dir chepe: Charanjit Godwin MD, Phone: [phone] [facility] Healthcare Medical CenterDigoxin Tkvnc4174-42-88 17:40:00* Test Item Value Reference Range Interpretation Comments Digoxin Level (test code = 24181-9) < 0.30 0.8-2.0 L [facility] CenterDixin Hmsjp4257-98-94 17:40:00* Test Item Value Reference Range Interpretation Comments Digoxin Level (test code = 01912-4) < 0.30 0.8-2.0 L [facility] CenterDixin Qkoxt2983-52-73 17:40:00* Test Item Value Reference Range Interpretation Comments Digoxin Level (test code = 17659-6) < 0.30 0.8-2.0 L [facility] Brookxin Oarrg1372-43-44 17:40:00* Test Item Value Reference Range Interpretation Comments Digoxin Level (test code = 86124-5) < 0.30 0.8-2.0 L [facility] KingwoodBedside Fxzvyco8280-92-53 16:28:00* Test Item Value Reference Range Interpretation Comments Bedside Glucose (test code = 97712-1) 119 70-120 Meter ID: [id number] [facility] Healthcare Medical CenterMODIFIED BA. SWALLOW 2019-06-16 16:12:00 [place] [address] Patient Name: STEVE BENEDICT MR #: [id number] : 1945 Age/Sex: 73/M Req #: [id number] Adm Physician: ROSALIE MEDINA MD Ordered by: Tamela Young [employer] Report #: [id number] Location: MED/SURG3 Room/Bed: [facility] Procedure: [id number] D X/MODIFIED BA. SWALLOW Exam Date: 06/16/19 Exam Time : 1110 REPORT STATUS: Signed Modified barium swallow, 06/16/2019. History: Aspiration. Fluoro matt e: 2.3 min. Dose: 17.3 mGy (KARIME) Technique: Fluoroscopy was performed by medical transcription radiology. A radiologist was not present for exam. Fluoroscopic observat ion and imaging of the oral cavity, oropharynx, and hypopharynx was performed in the lateral projection during swallowing of liquids and solids, administere d by speech pathology. See speech pathologist report for findings. Signed by: Jose Bertrand on 06/16/2019 4:12 PM Dictated By: JOSE BERTRAND MD El ectronically Signed By: JOSE BERTRAND MD on 06/16/19 161 Transcribed By: ENDY RIVERA on 06/16/19 161 COPY TO: TAMELA YOUNG NP CHEST SINGLE (PORTABLE)2019-06-16 08:59:00 [facility] [address] [address] Patient Name: STEVE BENEDICT MR #: [id number] : 1945 Age/Sex: 73/M Req #: [id number] Adm Physician: ROSALIE MEDINA MD Ordered by: HARPAL RESENDEZ MD Report #: [id number] Location: MED/SURG3 Room/Bed: [facility] Procedure: [id number] DX/CHEST SINGLE (PORTABLE) Exam Date: 06/16/19 Exam Time: 0600 REPORT STATUS: Signed Chest, 1 view, 06/16/2019. History: Atelectasis. Comparison: . Findings: The cardiomediastinal silhouette and pulmonary vasculat ure are within normal limits for a portable exam. Linear opacities are present in the lung bases. There is no focal consolidation or pleural effusion. Ther e are no acute osseous or soft tissue abnormalities. Impression: Biba silar atelectasis. Signed by: Jose Bertrand on 06/16/2019 8:59 AM Di ctated By: JOSE BERTRAND MD 8 COPY TO: XIN RESENDEZ MD, ABI Sodium Fqmgt5335-77-25 06:10:00* Test Item Value Reference Range Interpretation Comments Sodium Level (test code = 2951-2) 140 136-145 [facility] CenterPotassium Erhyk6274-98-05 06:10:00* Test Item Value Reference Range Interpretation Comments Potassium Level (test code = 2823-3) 3.7 3.5-5.1 [facility] CenterChloride Ghuwy0745-01-07 06:10:00* Test Item Value Reference Range Interpretation Comments Chloride Level (test code = 2075-0) 97 98-107 L [facility] CenterCarbon Dioxide Boxay9217-77-54 06:10:00* Test Item Value Reference Range Interpretation Comments Carbon Dioxide Level (test code = 2028-9) 36 22-29 H [facility] CenterAnion Ybe0747-91-65 06:10:00* Test Item Value Reference Range Interpretation Comments Anion Gap (test code = 94500-5) 10.7 8-16 [facility] CenterBlood Urea Xlhxpitc6460-11-24 06:10:00* Test Item Value Reference Range Interpretation Comments Blood Urea Nitrogen (test code = 3094-0) 32 7-26 H [facility] CenterCreatinine2019-08-21 06:10:00* Test Item Value Reference Range Interpretation Comments Creatinine (test code = 2160-0) 1.25 0.72-1.25 [facility] CenterBUN/Creatinine Odkcs5138-70-94 06:10:00* Test Item Value Reference Range Interpretation Comments BUN/Creatinine Ratio (test code = 3097-3) 26 6-25 H [facility] CenterEstimat Glomerular Filtration Rate 2019-06-16 06:10:00* Test Item Value Reference Range Interpretation Comments Estimat Glomerular Filtration Rate (test code = 124536769) 56 >60 L Ranges were taken from the National Kidney Disease Education Program and the [facility] Kid[facility] Foundation literature.Reference ranges:60 or greater: Wxjlwb07-52 ( for 3 consecutive months): Chronic kidney disease 15 or less: Kidney failureHCA Houston Healthcare Medical CenterGlucose Fsxpb6617-52-53 06:10:00* Test Item Value Reference Range Interpretation Comments Glucose Level (test code = EJD5537) 114 74-118 [facility] CenterCalcium Qmkkr5644-58-62 06:10:00* Test Item Value Reference Range Interpretation Comments Calcium Level (test code = 65608-6) 9.5 8.4-10.2 [facility] CenterMagnesium Gnjjm2601-05-28 06:10:00* Test Item Value Reference Range Interpretation Comments Magnesium Level (test code = 01384-5) 1.9 1.3-2.1 [facility] CenterWhite Blood Hkuwn3761-16-92 05:44:00* Test Item Value Reference Range Interpretation Comments White Blood Count (test code = 6690-2) 4.82 4.8-10.8 [facility] CenterRed Blood Vcjio9484-16-44 05:44:00* Test Item Value Reference Range Interpretation Comments Red Blood Count (test code = 789-8) 3.55 4.3-5.7 L [facility] CenterHemoglobin2019-08-21 05:44:00* Test Item Value Reference Range Interpretation Comments Hemoglobin (test code = 54098-2) 9.1 14.0-18.0 L [facility] CenterHematocrit2019-08-21 05:44:00* Test Item Value Reference Range Interpretation Comments Hematocrit (test code = 4544-3) 31.3 38.2-49.6 L [facility] CenterMean Corpuscular Khzghy9330-04-22 05:44:00* Test Item Value Reference Range Interpretation Comments Mean Corpuscular Volume (test code = 787-2) 88.2 81-99 [facility] CenterMean Corpuscular Rkptloqaut0272-25-09 05:44:00* Test Item Value Reference Range Interpretation Comments Mean Corpuscular Hemoglobin (test code = 785-6) 25.6 28-32 L [facility] CenterMean Corpuscular Hemoglobin Concent 2019-06-16 05:44:00* Test Item Value Reference Range Interpretation Comments Mean Corpuscular Hemoglobin Concent (test code = 786-4) 29.1 31-35 L [facility] CenterRed Cell Distribution Gdrcs9842-12-61 05:44:00* Test Item Value Reference Range Interpretation Comments Red Cell Distribution Width (test code = 96146-2) 14.7 11.7 -14.4 H [facility] CenterPlatelet Rhemq5394-01-46 05:44:00* Test Item Value Reference Range Interpretation Comments Platelet Count (test code = 777-3) 252 140-360 [facility] CenterNeutrophils (%) (Auto)2019-06-16 05:44:00 * Test Item Value Reference Range Interpretation Comments Neutrophils (%) (Auto) (test code = 27235-4) 67.0 38.7-80.0 [facility] CenterLymphocytes (%) (Auto)2019-06-16 05:44:00 * Test Item Value Reference Range Interpretation Comments Lymphocytes (%) (Auto) (test code = 736-9) 16.0 18.0-39.1 L [facility] CenterMonocytes (%) (Auto)2019-06-16 05:44:00* Test Item Value Reference Range Interpretation Comments Monocytes (%) (Auto) (test code = 5905-5) 9.8 4.4-11.3 [facility] CenterEosinophils (%) (Auto)2019-06-16 05:44:00 * Test Item Value Reference Range Interpretation Comments Eosinophils (%) (Auto) (test code = 713-8) 6.4 0.0-6.0 H [facility] CenterBasophils (%) (Auto)2019-06-16 05:44:00* Test Item Value Reference Range Interpretation Comments Basophils (%) (Auto) (test code = 706-2) 0.6 0.0-1.0 [facility] CenterIM GRANULOCYTES %2019-06-16 05:44:00* Test Item Value Reference Range Interpretation Comments IM GRANULOCYTES % (test code = IM GRANULOCYTES %) 0.2 0.0- 1.0 [facility] CenterNeutrophils # (Auto)2019-06-16 05:44:00* Test Item Value Reference Range Interpretation Comments Neutrophils # (Auto) (test code = 751-8) 3.2 2.1-6.9 [facility] CenterLymphocytes # (Auto)2019-06-16 05:44:00* Test Item Value Reference Range Interpretation Comments Lymphocytes # (Auto) (test code = 49030-9) 0.8 1.0-3.2 L [facility] CenterMonocytes # (Auto)2019-06-16 05:44:00* Test Item Value Reference Range Interpretation Comments Monocytes # (Auto) (test code = 742-7) 0.5 0.2-0.8 [facility] CenterEosinophils # (Auto)2019-06-16 05:44:00* Test Item Value Reference Range Interpretation Comments Eosinophils # (Auto) (test code = 711-2) 0.3 0.0-0.4 [facility] CenterBasophils # (Auto)2019-06-16 05:44:00* Test Item Value Reference Range Interpretation Comments Basophils # (Auto) (test code = 704-7) 0.0 0.0-0.1 [facility] CenterAbsolute Immature Granulocyte (auto 2019-06-16 05:44:00* Test Item Value Reference Range Interpretation Comments Absolute Immature Granulocyte (auto (bharat t code = Absolute Immature Granulocyte (auto) 0.01 0-0.1 [facility] CenterB-Type Natriuretic Dbluwzf1088-52-80 03:31:00* Test Item Value Reference Range Interpretation Comments B-Type Natriuretic Peptide (test code = 35906-7) 630.7 0-100 H [facility] CenterTotal Fylqaiwf4160-01-86 11:53:00* Test Item Value Reference Range Interpretation Comments Total Cortisol (test code = 2143-6) 5.5 . Cortisol AM 6.2 - 19.4 Co rtisol PM 2.3 - 11.9Performed at: [facility] [id number] Director: Tito Rodriguez MD, Phone: [phone]. David's Georgetown Hospitaltal Fpswprxb2609-01-32 11:53:00* Test Item Value Reference Range Interpretation Comments Total Cortisol (test code = 2143-6) 5.5 . Cortisol AM 6.2 - 19.4 Co rtisol PM 2.3 - 11.9Performed at: Poll Everywhere - [facility] [address] [id number] Director: Tito Rodriguez MD, Phone: [phone] Hospitals [facility] Thdddpsy7177-04-43 11:53:00* Test Item Value Reference Range Interpretation Comments Total Cortisol (test code = 2143-6) 5.5 . Cortisol AM 6.2 - 19.4 Co rtisol PM 2.3 - 11.9Performed at: [facility] [id number] Director: Tito Rodriguez MD, Phone: [phone] Hospitals [facility] Dgvdiahi6968-87-29 11:53:00* Test Item Value Reference Range Interpretation Comments Total Cortisol (test code = 2143-6) 5.5 . Cortisol AM 6.2 - 19.4 Co rtisol PM 2.3 - 11.9Performed at: [facility] [id number] Director: Tito Rodriguez MD, Phone: [phone] [facility] Healthcare Medical CenterPhosphorus Scomv3762-67-10 05:15:00* Test Item Value Reference Range Interpretation Comments Phosphorus Level (test code = KZI4144) 2.7 2.3-4.7 [facility] CenterPhosphorus Bbtyb3991-86-05 05:15:00* Test Item Value Reference Range Interpretation Comments Phosphorus Level (test code = QEE7726) 2.7 2.3-4.7 [facility] CenterPhosphorus Fdiyd1769-82-10 05:15:00* Test Item Value Reference Range Interpretation Comments Phosphorus Level (test code = CRR1802) 2.7 2.3-4.7 [facility] CenterPhosphorus Qaqul0832-70-32 05:15:00* Test Item Value Reference Range Interpretation Comments Phosphorus Level (test code = JBD6247) 2.7 2.3-4.7 [facility] CenterBlood Jocwcbc5418-82-18 19:12:00* Test Item Value Reference Range Interpretation Comments Blood Culture (test code = 53552695) NO GROWTH AFTER 72 HOURS [facility] Rqexkmzxm8740-12-61 07:09:00* Test Item Value Reference Range Interpretation Comments Total Bilirubin (test code = 1975-2) 0.4 0.2-1.2 [facility] CenterAspartate Amino Transf (AST/SGOT) 2019-06-14 07:09:00* Test Item Value Reference Range Interpretation Comments Aspartate Amino Transf (AST/SGOT) (test code = Aspartate Amino Transf (AST/SGOT)) 16 5-34 [facility] CenterAlanine Aminotransferase (ALT/SGPT) 2019-06-14 07:09:00* Test Item Value Reference Range Interpretation Comments Alanine Aminotransferase (ALT/SGPT) (test code = 1742-6) 8 0-55 [facility] Qgvftoo4869-45-14 07:09:00* Test Item Value Reference Range Interpretation Comments Total Protein (test code = 2885-2) 5.4 6.5-8.1 L [facility] CenterAlbumin2019-08-19 07:09:00* Test Item Value Reference Range Interpretation Comments Albumin (test code = 1751-7) 2.8 3.5-5.0 L [facility] CenterGlobulin2019-08-19 07:09:00* Test Item Value Reference Range Interpretation Comments Globulin (test code = 31875-7) 2.6 2.3-3.5 [facility] CenterAlbumin/Globulin Fayrt6415-08-32 07:09:00 * Test Item Value Reference Range Interpretation Comments Albumin/Globulin Ratio (test code = 1759-0) 1.1 0.8-2.0 [facility] CenterAlkaline Xcytocojkxv0971-45-51 07:09:00* Test Item Value Reference Range Interpretation Comments Alkaline Phosphatase (test code = 6768-6) 73 40-150 [facility] CenterFree Fauqvmumm5813-73-71 07:36:00* Test Item Value Reference Range Interpretation Comments Free Thyroxine (test code = 3024-7) 0.86 0.8-1.8 [facility] CenterThyroid Stimulating Hormone (TSH) 2019-06-13 07:36:00* Test Item Value Reference Range Interpretation Comments Thyroid Stimulating Hormone (TSH) (test code = 24998-7) 3.117 0.350-4.940 [facility] Axappstzc6478-19-29 07:36:00* Test Item Value Reference Range Interpretation Comments Free Thyroxine (test code = 3024-7) 0.86 0.8-1.8 [facility] CenterThyroid Stimulating Hormone (TSH) 2019-06-13 07:36:00* Test Item Value Reference Range Interpretation Comments Thyroid Stimulating Hormone (TSH) (test code = 79905-2) 3.117 0.350-4.940 [facility] Trbxhjpnz6267-93-29 07:36:00* Test Item Value Reference Range Interpretation Comments Free Thyroxine (test code = 3024-7) 0.86 0.8-1.8 [facility] CenterThyroid Stimulating Hormone (TSH) 2019-06-13 07:36:00* Test Item Value Reference Range Interpretation Comments Thyroid Stimulating Hormone (TSH) (test code = 66867-4) 3.117 0.350-4.940 [facility] Gcenbwsyl9702-36-57 07:36:00* Test Item Value Reference Range Interpretation Comments Free Thyroxine (test code = 3024-7) 0.86 0.8-1.8 [facility] CenterThyroid Stimulating Hormone (TSH) 2019-06-13 07:36:00* Test Item Value Reference Range Interpretation Comments Thyroid Stimulating Hormone (TSH) (test code = 65461-1) 3.117 0.350-4.940 [facility] CenterHemoglobin A1c Qmsxrmu4236-30-05 07:18:00 * Test Item Value Reference Range Interpretation Comments Hemoglobin A1c Percent (test code = Hemoglobin A1c Percent) 5.7 4.0-7.0 [facility] CenterHemoglobin A1c Gtzpdge0839-11-60 07:18:00 * Test Item Value Reference Range Interpretation Comments Hemoglobin A1c Percent (test code = Hemoglobin A1c Percent) 5.7 4.0-7.0 [facility] CenterHemoglobin A1c Capwvta7303-54-57 07:18:00 * Test Item Value Reference Range Interpretation Comments Hemoglobin A1c Percent (test code = Hemoglobin A1c Percent) 5.7 4.0-7.0 [facility] CenterHemoglobin A1c Vnqiclo5924-17-56 07:18:00 * Test Item Value Reference Range Interpretation Comments Hemoglobin A1c Percent (test code = Hemoglobin A1c Percent) 5.7 4.0-7.0 [facility] CenterCreatine Jsivpw3862-36-76 10:22:00* Test Item Value Reference Range Interpretation Comments Creatine Kinase (test code = 2157-6) 111 30-200 [facility] CenterCreatine Kinase FI0850-13-68 10:22:00* Test Item Value Reference Range Interpretation Comments Creatine Kinase MB (test code = 69741-3) 4.60 0-5.0 [facility] CenterTroponin F6074-96-28 10:22:00* Test Item Value Reference Range Interpretation Comments Troponin I (test code = XZK6224) 0.015 0-0.300 [facility] CenterCHEST SINGLE (PORTABLE)2019-06-12 06:18:00 [place] [address] Patient Name: STEVE BENEDICT MR #: [id number] : 1945 Age/Sex: 73/M Req #: [id number] Adm Physician: ROSALIE MEDINA MD Ordered by: RENAE SOLARES MD Report #: [id number] Location: MED/SURG3 Room/Bed: [facility] Procedure: [id number] DX/CHEST SINGLE (PORTABLE) Exam Date: 06/12/19 Exam [...] and interstitial edema. Signed by: Dr. John cooper, D.ODalton, M.M.M. on 06/12/2019 6:21 AM Dictated By: JOHN GIRARD DO Elec tronically Signed By: JOHN GIRARD DO on 06/12/19620 Transcribed By: ERAN davidson 06/12/19620 COPY TO: RENAE SOLARES MD Urine YZU3045-03-66 19:19:00* Test Item Value Reference Range Interpretation Comments Urine WBC (test code = 5821-4) 0-5 0-5 [facility] CenterUrine MEO1741-06-76 19:19:00* Test Item Value Reference Range Interpretation Comments Urine RBC (test code = 41915-8) 0-5 0-5 [facility] CenterUrine Liikcdbw6644-06-60 19:19:00* Test Item Value Reference Range Interpretation Comments Urine Bacteria (test code = 19111-4) FEW NONE [facility] CenterUrine Epithelial Bggri2963-20-27 19:19:00 * Test Item Value Reference Range Interpretation Comments Urine Epithelial Cells (test code = 25991-2) FEW NONE [facility] CenterUrine Upvrr5960-35-44 19:15:00* Test Item Value Reference Range Interpretation Comments Urine Color (test code = 5778-6) YELLOW YELLOW [facility] CenterUrine Hdifmcb8373-56-00 19:15:00* Test Item Value Reference Range Interpretation Comments Urine Clarity (test code = 08129-8) SL CLOUDY CLEAR H [facility] CenterUrine Specific Rfgvogg2852-57-62 19:15:00 * Test Item Value Reference Range Interpretation Comments Urine Specific Devol (test code = 5811-5) <=1.005 1.010-1.02 5 [facility] CenterUrine nP1427-06-81 19:15:00* Test Item Value Reference Range Interpretation Comments Urine pH (test code = 84676-5) 6 5-7 [facility] CenterUrine Leukocyte Ufflprlw4165-33-58 19:15:00* Test Item Value Reference Range Interpretation Comments Urine Leukocyte Esterase (test code = 66180-6) NEGATIVE NEGATIV E [facility] CenterUrine Mlyqtun5095-12-23 19:15:00* Test Item Value Reference Range Interpretation Comments Urine Nitrite (test code = 71116-8) NEGATIVE NEGATIVE [facility] CenterUrine Quxyijr5916-54-21 19:15:00* Test Item Value Reference Range Interpretation Comments Urine Protein (test code = 11189-7) NEGATIVE NEGATIVE [facility] CenterUrine Glucose (UA)2019-06-11 19:15:00* Test Item Value Reference Range Interpretation Comments Urine Glucose (UA) (test code = 43362-6) NEGATIVE NEGATIVE [facility] CenterUrine Rslzdmd3960-49-78 19:15:00* Test Item Value Reference Range Interpretation Comments Urine Ketones (test code = 57592-7) NEGATIVE NEGATIVE [facility] Rzxyulohaiix8657-51-75 19:15:00* Test Item Value Reference Range Interpretation Comments Urine Urobilinogen (test code = 73072-7) 0.2 0.2-1 [facility] CenterUrine Xrlkorbrp8507-71-26 19:15:00* Test Item Value Reference Range Interpretation Comments Urine Bilirubin (test code = 1977-8) NEGATIVE NEGATIVE [facility] Uckgb1690-28-31 19:15:00* Test Item Value Reference Range Interpretation Comments Urine Blood (test code = 53890-8) NEGATIVE NEGATIVE [facility] CenterActivated Partial Thromboplast Time 2019-06-11 16:11:00* Test Item Value Reference Range Interpretation Comments Activated Partial Thromboplast Time (test code = 60413-2) 49.1 23.8-35.5 H [facility] CenterProthrombin Bcvp1320-27-89 16:10:00* Test Item Value Reference Range Interpretation Comments Prothrombin Time (test code = 5902-2) 19.1 11.9-14.5 H [facility] CenterProthromb Time International Ratio 2019-06-11 16:10:00* Test Item Value Reference Range Interpretation Comments Prothromb Time International Ratio (test code = 6301-6) 1.54 Oral Anticoagulant Therapy INR Values:1. Low Intensity Therapy 1.5 - 2.02 . Moderate Intensity Therapy 2.0 - 3.03. High Intensity Therapy(1) 2.5 - 3. 54. High Intensity Therapy(2) 3.0 - 4.05. Panic Value INR > 5.0 [facility] CenterCHEST SINGLE (PORTABLE)2019-06-11 15:51:00 [facility] [address] [place] [address] Patient Name: STEVE BENEDICT MR #: [id number] : 1945 Age/Sex: 73/M Req #: [id number] Adm Physician: Ordered by: JAIR RESENDEZ NP Report #: [id number] Location: ER Room/Bed: Procedure: [id number] DX/CHEST SINGLE (PORTABLE) Exam Date: 06/11/19 Exam [...] ression: Left lower lobe atelectasis. Signed by: Jose Bertrand on 019 3:52 PM Dictated By: JOSE BERTRAND MD 51 Transcribed By: ERAN on 06/11/191551 CO PY TO: JAIR RESENDEZ MACHINE FEEDER RAW STOCK Bedside Xeisgpl4207-28-87 12:32:00* Test Item Value Reference Range Interpretation Comments Bedside Glucose (test code = 19421-1) 89 70-120 Meter ID: [id number] [facility] 2019-05-28 05:58:00* Test Item Value Reference Range Interpretation Comments Sodium Level (test code = 2951-2) 141 136-145 [facility] CenterPotassium Xplpi4299-06-62 05:58:00* Test Item Value Reference Range Interpretation Comments Potassium Level (test code = 2823-3) 3.8 3.5-5.1 [facility] CenterChloride Nlrtg5833-12-37 05:58:00* Test Item Value Reference Range Interpretation Comments Chloride Level (test code = 2075-0) 88 98-107 L [facility] CenterCarbon Dioxide Pnfmh3592-90-84 05:58:00* Test Item Value Reference Range Interpretation Comments Carbon Dioxide Level (test code = 2028-9) 43 22-29 HH Results repeated and called to ELOISA KAPADIA RN at 0556 on 05/28/19 by Tyrel Rivera. Read back and verified.[facility] CenterAnion Ang1958-05-29 05:58:00* Test Item Value Reference Range Interpretation Comments Anion Gap (test code = 51259-1) 13.8 8-16 [facility] CenterBlood Urea Qkijdlso4476-97-37 05:58:00* Test Item Value Reference Range Interpretation Comments Blood Urea Nitrogen (test code = 3094-0) 43 7-26 H [facility] CenterCreatinine2019-08-02 05:58:00* Test Item Value Reference Range Interpretation Comments Creatinine (test code = 2160-0) 1.68 0.72-1.25 H [facility] CenterBUN/Creatinine Japgj1955-69-99 05:58:00* Test Item Value Reference Range Interpretation Comments BUN/Creatinine Ratio (test code = 3097-3) 26 6-25 H [facility] CenterEstimat Glomerular Filtration Rate 2019-05-28 05:58:00* Test Item Value Reference Range Interpretation Comments Estimat Glomerular Filtration Rate (test code = 383525453) 40 >60 L Ranges were taken from the National Kidney Disease Education Program and the [facility]ney Foundation literature.Reference ranges:60 or greater: Gndtng35-84 ( for 3 consecutive months): Chronic kidney disease 15 or less: Kidney failureHCA [facility] Healthcare Medical CenterGlucose Bbpkc0821-20-94 05:58:00* Test Item Value Reference Range Interpretation Comments Glucose Level (test code = VHL6162) 98 74-118 [facility] CenterCalcium Xmvue2392-65-59 05:58:00* Test Item Value Reference Range Interpretation Comments Calcium Level (test code = 90674-7) 9.5 8.4-10.2 [facility] CenterWhite Blood Iqaid2548-71-68 05:07:00* Test Item Value Reference Range Interpretation Comments White Blood Count (test code = 6690-2) 4.69 4.8-10.8 L [facility] CenterRed Blood Htkji6045-05-26 05:07:00* Test Item Value Reference Range Interpretation Comments Red Blood Count (test code = 789-8) 3.65 4.3-5.7 L [facility] CenterHemoglobin2019-08-02 05:07:00* Test Item Value Reference Range Interpretation Comments Hemoglobin (test code = 60581-8) 9.9 14.0-18.0 L [facility] CenterHematocrit2019-08-02 05:07:00* Test Item Value Reference Range Interpretation Comments Hematocrit (test code = 4544-3) 32.7 38.2-49.6 L [facility] CenterMean Corpuscular Uaztcj1838-29-56 05:07:00* Test Item Value Reference Range Interpretation Comments Mean Corpuscular Volume (test code = 787-2) 89.6 81-99 [facility] CenterMean Corpuscular Usznzuhfqe8700-08-34 05:07:00* Test Item Value Reference Range Interpretation Comments Mean Corpuscular Hemoglobin (test code = 785-6) 27.1 28-32 L [facility] CenterMean Corpuscular Hemoglobin Concent 2019-05-28 05:07:00* Test Item Value Reference Range Interpretation Comments Mean Corpuscular Hemoglobin Concent (test code = 786-4) 30.3 31-35 L [facility] CenterRed Cell Distribution Myyni0510-73-14 05:07:00* Test Item Value Reference Range Interpretation Comments Red Cell Distribution Width (test code = 26952-9) 15.2 11.7 -14.4 H [facility] CenterPlatelet Gtuad9538-52-03 05:07:00* Test Item Value Reference Range Interpretation Comments Platelet Count (test code = 777-3) 194 140-360 [facility] CenterNeutrophils (%) (Auto)2019-05-28 05:07:00 * Test Item Value Reference Range Interpretation Comments Neutrophils (%) (Auto) (test code = 91028-4) 54.5 38.7-80.0 [facility] CenterLymphocytes (%) (Auto)2019-05-28 05:07:00 * Test Item Value Reference Range Interpretation Comments Lymphocytes (%) (Auto) (test code = 736-9) 23.2 18.0-39.1 [facility] CenterMonocytes (%) (Auto)2019-05-28 05:07:00* Test Item Value Reference Range Interpretation Comments Monocytes (%) (Auto) (test code = 5905-5) 15.1 4.4-11.3 H [facility] CenterEosinophils (%) (Auto)2019-05-28 05:07:00 * Test Item Value Reference Range Interpretation Comments Eosinophils (%) (Auto) (test code = 713-8) 6.4 0.0-6.0 H [facility] CenterBasophils (%) (Auto)2019-05-28 05:07:00* Test Item Value Reference Range Interpretation Comments Basophils (%) (Auto) (test code = 706-2) 0.6 0.0-1.0 [facility] CenterIM GRANULOCYTES %2019-05-28 05:07:00* Test Item Value Reference Range Interpretation Comments IM GRANULOCYTES % (test code = IM GRANULOCYTES %) 0.2 0.0- 1.0 [facility] CenterNeutrophils # (Auto)2019-05-28 05:07:00* Test Item Value Reference Range Interpretation Comments Neutrophils # (Auto) (test code = 751-8) 2.6 2.1-6.9 [facility] CenterLymphocytes # (Auto)2019-05-28 05:07:00* Test Item Value Reference Range Interpretation Comments Lymphocytes # (Auto) (test code = 05088-2) 1.1 1.0-3.2 [facility] CenterMonocytes # (Auto)2019-05-28 05:07:00* Test Item Value Reference Range Interpretation Comments Monocytes # (Auto) (test code = 742-7) 0.7 0.2-0.8 [facility] CenterEosinophils # (Auto)2019-05-28 05:07:00* Test Item Value Reference Range Interpretation Comments Eosinophils # (Auto) (test code = 711-2) 0.3 0.0-0.4 [facility] CenterBasophils # (Auto)2019-05-28 05:07:00* Test Item Value Reference Range Interpretation Comments Basophils # (Auto) (test code = 704-7) 0.0 0.0-0.1 [facility] CenterAbsolute Immature Granulocyte (auto 2019-05-28 05:07:00* Test Item Value Reference Range Interpretation Comments Absolute Immature Granulocyte (auto (bharat t code = Absolute Immature Granulocyte (auto) 0.01 0-0.1 [facility] CenterBlood Rpmozza0509-00-75 18:36:00* Test Item Value Reference Range Interpretation Comments Blood Culture (test code = 88146803) NO GROWTH AFTER 24 HOURS [facility]woodCT BRAIN UA3400-41-55 14:11:00 [facility] [address] [place] [address] Patient Name: STEVE BENEDICT MR #: [id number] : 1945 Age/Sex: 73/M Req #: [id number] Adm Physician: ROSALIE MEDINA MD Ordered by: Tamela Young NP Report #: [id number] Location: MED/SURG2 Room/Bed: [facility] Procedure: [id number] C T/CT BRAIN WO Exam Date: 05/27/19 Exam Time: 1341 REPORT STATUS: Signed CT BRAIN WO HISTORY: Syncope COMPARISON: MRI of the brain 05/27/2019 Technique : Noncontrast axial scans were obtained from skull base to the vertex. Coron al and sagittal reconstructions obtained from the axial [...] lenses are thinned. Small left mastoid effu vania. Mild mucosal thickening in the left posterior ethmoid air cells. IMPR ESSION: 1. No acute intracranial abnormalities. 2. 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 Mild generalized cerebral volume loss. Signed by: Dr. Nola Turner M.D. on 05/27/2019 2:12 PM Dictated By: NOLA TURNER MD 11 Transcribed By: ERAN on 05/27/191411 COPY TO: TAMELA YOUNG P MRI BRAIN EB8215-40-99 14:08:00 [place] [address] Patient Name: STEVE BENEDICT MR #: [id number] : 1945 Age/Sex: 73/M Req #: [id number] Adm Physician: ROSALIE MEDINA MD Ordered by: Tamela Young MACHINE FEEDER RAW STOCK Report #: [id number] Location: MED/SURG2 Room/Bed: [facility] Procedure: [id number] M RI/MRI BRAIN WO Exam Date: Exam [...] Compensatory dilatation. Extra-axial spaces: No masses or flui d collections. Parenchyma: Scattered T2/FLAIR hyperintense foci throughou t the supratentorial white matter are likely chronic [...] generalized cerebral volume loss. Signed by: Dr. Nola Turner M.D. on 05/27/2019 2:10 PM Dictated By: NOLA TURNER MD 09 Transcribed By: ERAN on 11/140 COPY TO: TAMELA YOUNG NP B-Type Natriuretic Peptide 2019-05-27 08:56:00* Test Item Value Reference Range Interpretation Comments B-Type Natriuretic Peptide (test code = 94670-0) 328.4 0-100 H [facility] CenterMagnesium Uwgxk8793-38-48 08:44:00* Test Item Value Reference Range Interpretation Comments Magnesium Level (test code = 12690-7) 2.2 1.3-2.1 H [facility] CenterLactic Acid Vfgeo0051-89-93 21:03:00* Test Item Value Reference Range Interpretation Comments Lactic Acid Level (test code = Lactic Acid Level) 14.1 4.5- 19.8 [facility] CenterLactic Acid Lnnij7827-30-84 21:03:00* Test Item Value Reference Range Interpretation Comments Lactic Acid Level (test code = Lactic Acid Level) 14.1 4.5- 19.8 [facility] CenterUrine CFC8451-55-27 18:55:00* Test Item Value Reference Range Interpretation Comments Urine WBC (test code = 5821-4) 0-5 0-5 [facility] CenterUrine BVH7914-71-03 18:55:00* Test Item Value Reference Range Interpretation Comments Urine RBC (test code = 12534-6) NONE 0-5 [facility] CenterUrine Funlebgk9502-37-28 18:55:00* Test Item Value Reference Range Interpretation Comments Urine Bacteria (test code = 88438-3) NONE NONE [facility] CenterUrine Epithelial Aenhv2149-94-46 18:55:00 * Test Item Value Reference Range Interpretation Comments Urine Epithelial Cells (test code = 53599-9) RARE NONE [facility] Renal Epithelial Mdyem9836-50-55 18:55:00* Test Item Value Reference Range Interpretation Comments Urine Renal Epithelial Cells (test code = 24355-7) RARE NON E H [facility] CenterUrine Renal Epithelial Bihdy8903-18-01 18:55:00* Test Item Value Reference Range Interpretation Comments Urine Renal Epithelial Cells (test code = 72795-4) RARE NON E H [facility] Renal Epithelial Lwpju6999-92-93 18:55:00* Test Item Value Reference Range Interpretation Comments Urine Renal Epithelial Cells (test code = 22141-2) RARE NON E H [facility] CenterUrine Renal Epithelial Kdbbp0767-73-63 18:55:00* Test Item Value Reference Range Interpretation Comments Urine Renal Epithelial Cells (test code = 30820-6) RARE NON E H [facility] Renal Epithelial Lbcbt2944-37-56 18:55:00* Test Item Value Reference Range Interpretation Comments Urine Renal Epithelial Cells (test code = 57963-5) RARE NON E H [facility] CenterUrine Zzrqj6540-96-98 18:43:00* Test Item Value Reference Range Interpretation Comments Urine Color (test code = 5778-6) YELLOW YELLOW [facility] CenterUrine Iwjkwcx7662-86-47 18:43:00* Test Item Value Reference Range Interpretation Comments Urine Clarity (test code = 02083-8) CLEAR CLEAR [facility] CenterUrine Specific Yrintfm1917-87-28 18:43:00 * Test Item Value Reference Range Interpretation Comments Urine Specific Devol (test code = 5811-5) 1.010 1.010-1.02 5 [facility] CenterUrine pE0347-01-95 18:43:00* Test Item Value Reference Range Interpretation Comments Urine pH (test code = 79722-8) 7 5-7 [facility] CenterUrine Leukocyte Csirccov4780-17-79 18:43:00* Test Item Value Reference Range Interpretation Comments Urine Leukocyte Esterase (test code = 07969-4) NEGATIVE NEGATIV E [facility] CenterUrine Temkyok6318-04-54 18:43:00* Test Item Value Reference Range Interpretation Comments Urine Nitrite (test code = 47875-5) NEGATIVE NEGATIVE [facility] CenterUrine Mwvzxqm4860-28-12 18:43:00* Test Item Value Reference Range Interpretation Comments Urine Protein (test code = 79719-6) NEGATIVE NEGATIVE [facility] CenterUrine Glucose (UA)2019-05-26 18:43:00* Test Item Value Reference Range Interpretation Comments Urine Glucose (UA) (test code = 31190-6) NEGATIVE NEGATIVE [facility] CenterUrine Lnlpsxb5560-14-26 18:43:00* Test Item Value Reference Range Interpretation Comments Urine Ketones (test code = 94133-5) NEGATIVE NEGATIVE [facility] CenterUrine Hlukeotuggbw0650-46-45 18:43:00* Test Item Value Reference Range Interpretation Comments Urine Urobilinogen (test code = 25295-1) 0.2 0.2-1 [facility] CenterUrine Kzaqnjdkc5192-98-08 18:43:00* Test Item Value Reference Range Interpretation Comments Urine Bilirubin (test code = 1977-8) NEGATIVE NEGATIVE [facility] CenterUrine Lrjjo7029-22-71 18:43:00* Test Item Value Reference Range Interpretation Comments Urine Blood (test code = 96645-7) NEGATIVE NEGATIVE [facility] CenterCHEST 2 CWTKP3055-43-41 16:20:00 [place] [address] Patient Name: STEVE BENEDICT MR #: [id number] : 1945 Age/Sex: 73/M Req #: [id number] Adm Physician: Ordered by: TROY CODY MD Report #: [id number] Location: ER Room/Bed: Procedure: [id number] D X/CHEST 2 VIEWS Exam Date: 05/26/19 [...] No sig nificant interval change. Signed by: Santino Houser MD on 05/26/2019 4:21 PM Dictated By: SANTINO HOUSER MD 1621 COPY TO: Carrie CODY MD Creatine Kinase SN7717-95-29 15:20:00* Test Item Value Reference Range Interpretation Comments Creatine Kinase MB (test code = 75468-4) 2.80 0-5.0 [facility] CenterTroponin C5714-46-69 15:20:00* Test Item Value Reference Range Interpretation Comments Troponin I (test code = HMW1677) 0.013 0-0.300 [facility] CenterTotal Khnzkliue9696-92-18 15:15:00* Test Item Value Reference Range Interpretation Comments Total Bilirubin (test code = 1975-2) 0.4 0.2-1.2 [facility] CenterAspartate Amino Transf (AST/SGOT) 2019-05-26 15:15:00* Test Item Value Reference Range Interpretation Comments Aspartate Amino Transf (AST/SGOT) (test code = Aspartate Amino Transf (AST/SGOT)) 13 5-34 [facility] CenterAlanine Aminotransferase (ALT/SGPT) 2019-05-26 15:15:00* Test Item Value Reference Range Interpretation Comments Alanine Aminotransferase (ALT/SGPT) (test code = 1742-6) 10 0-55 [facility] CenterTotal Ijashkl3575-27-93 15:15:00* Test Item Value Reference Range Interpretation Comments Total Protein (test code = 2885-2) 6.5 6.5-8.1 [facility] CenterAlbumin2019-07-31 15:15:00* Test Item Value Reference Range Interpretation Comments Albumin (test code = 1751-7) 3.3 3.5-5.0 L [facility] CenterGlobulin2019-07-31 15:15:00* Test Item Value Reference Range Interpretation Comments Globulin (test code = 95897-4) 3.2 2.3-3.5 [facility] CenterAlbumin/Globulin Rcwif3008-02-09 15:15:00 * Test Item Value Reference Range Interpretation Comments Albumin/Globulin Ratio (test code = 1759-0) 1.0 0.8-2.0 [facility] CenterAlkaline Amxyvhvprwh7078-50-69 15:15:00* Test Item Value Reference Range Interpretation Comments Alkaline Phosphatase (test code = 6768-6) 109 40-150 [facility] CenterCreatine Snwvjd2521-13-33 15:15:00* Test Item Value Reference Range Interpretation Comments Creatine Kinase (test code = 2157-6) 89 30-200 [facility] CenterLipase2019-07-31 15:15:00* Test Item Value Reference Range Interpretation Comments Lipase (test code = 3040-3) [facility] CenterLipase2019-07-31 15:15:00* Test Item Value Reference Range Interpretation Comments Lipase (test code = 3040-3) [facility] CenterLipase2019-07-31 15:15:00* Test Item Value Reference Range Interpretation Comments Lipase (test code = 3040-3) [facility] CenterLipase2019-07-31 15:15:00* Test Item Value Reference Range Interpretation Comments Lipase (test code = 3040-3) [facility] CenterLipase2019-07-31 15:15:00* Test Item Value Reference Range Interpretation Comments Lipase (test code = 3040-3) [facility] CenterCHEST SINGLE (PORTABLE)2019-05-26 15:08:00 [facility] [address] [address] Patient Name: STEVE BENEDICT MR #: [id number] : 1945 Age/Sex: 73/M Req #: [id number] Adm Physician: Ordered by: TROY CODY MD Report #: [id number] Location: ER Room/Bed: Procedure: [id number] D X/CHEST SINGLE (PORTABLE) Exam Date: 05/26/19 [...] free air under the diaphragm. IMPRESSION: Patchy opacit y at the left lung base, likely subsegmental atelectasis. Signed by: Angel Houser MD on 05/26/2019 3:17 PM Dictated By: SANTINO HOUSER MD 1517 Transcribed By: ERAN on 05/26/19 1 517 COPY TO: TROY CODY MD Activated Partial Thromboplast Rthe8289-24-07 15:05:00* Test Item Value Reference Range Interpretation Comments Activated Partial Thromboplast Time (test code = 57073-8) 56.4 23.8-35.5 H [facility] CenterProthrombin Jcyp4732-39-76 15:04:00* Test Item Value Reference Range Interpretation Comments Prothrombin Time (test code = 5902-2) 18.3 11.9-14.5 H [facility] CenterProthromb Time International Ratio 2019-05-26 15:04:00* Test Item Value Reference Range Interpretation Comments Prothromb Time International Ratio (test code = 6301-6) 1.46 Oral Anticoagulant Therapy INR Values:1. Low Intensity Therapy 1.5 - 2.02 . Moderate Intensity Therapy 2.0 - 3.03. High Intensity Therapy(1) 2.5 - 3. 54. High Intensity Therapy(2) 3.0 - 4.05. Panic Value INR > 5.0 [facility] [id number] 17:35:00Trace *NA*(05/18/19 12:35 PM)[facility] [id number] 17:35:00Negative *NA*(05/18/19 12:35 PM)[facility] EPJDP4963-16-79 17:35:000.2 [facility] [id number] 17:35:00Positive *ABN*(05/18/19 12:35 PM)[facility] [id number] 17:35:00Small *ABN*(05/18/19 12:35 PM)[facility] FMSYO5873-03-88 17:35:00Yellow *NA*(05/18/19 12:35 PM)[facility] CVGNR6297-63-53 17:35:00Clear *NA*(05/18/19 12:35 PM)[facility] [id number] 17:35:00* Test Item Value Reference Range Interpretation Comments POC UA SG (test code = POC UA SG) 1.015 1 Geoff Ferguson AND [id number] 17:35:00* Test Item Value Reference Range Interpretation Comments POC UA pH (test code = POC UA pH) 6.5 1 5.0-8.0 [facility]- CT HEAD/BRAIN W/O [id number] 05:58:00 Name: STEVE BENEDICT [facility] : 1945 Age/S: 73 / M [address] [facility] Unit #: [id number] Loc: [place] [address] Phys: Bernard Coon MD Acct: [id number] Dis Date: Status: REG ER PHONE #: [phone] Exam Date: 05/05/2019439 FAX #: [phone] Reason: Pain s/p Fall EXAMS: CPT CODE: [id number] CT HEAD/BRAIN W/O CONT 05582 EXAM: - CT HEAD/BRAIN W/O CONT Location [...] and/or kV according to patient size, and/or utiliz ation of iterative reconstruction technique. COMPARISON: N one FINDINGS: Intracranial: Motion artifact limits evaluatio n. No abnormal brain parenchymal density. No evidence of acute infa rction, intracranial hemorrhage, mass or mass effect, or abnormal extra-ax ial fluid collection. The ventricular system and sulci are promi nent compatible cerebral volume loss.. There is mild diminished attenuatio n involving the periventricular and subcortical white matter compatible wi th mild microvascular chronic ischemic changes. The density in the larger dural sinuses is grossly normal. Bones: There is n o evidence of acute displaced calvarial fracture. Sinuses: [...] 1 Signed Report (CONTINUED) Name: STEVE BENEDICT [facility] : 1945 Age/S: 73 / M [address] [facility] Unit #: [id number] Loc: [place] [address] Phy s: Bernard Coon MD Acct: [id number] Dis Date: Status: REG ER PHONE #: [phone] Exam Date: 05/05/2019439 FAX #: [phone] Reason: Pain s/p Fall EXAMS: CPT CODE: [id number] CT HEAD/BRAIN W/O CONT 85160 <Continued> at 0558 Reported and signed by: Garry Hughes MD CC: Bernard Coon MD; Teofilo Summers MD Tech nologist:CEASAR CLARK RT(R),RDMS,CT CTDI: DLP: Trnscb Date/Ti me: 05/05/2019 (0558) [email or web address] Orig Print D/T: S: 2018 (0601) PAGE 2 Signed Report - CT CHEST W/O [id number] 05:52:00 Name: STEVE BENEDICT [facility] : 1945 Age/S: 73 / M [address] [facility] Unit #: [id number] Loc: [place] [address] Phys: Bernard Coon MD Acct: [id number] Dis Date: Status: REG ER PHONE #: [phone] Exam Date: 05/05/2019439 FAX #: [phone] Reason: Pain s/p Fall EXAMS: CPT CODE: [id number] CT CHEST W/O CONTRAST 68611 HISTORY: Pain and fall COMPARISON:None TECHNIQUE: Axial [...] 1 Signed Report (CONTINUED) Name: STEVE SIN [facility] : 1945 Age/S: 73 / M [address] [facility] Unit #: [id number] Lo c: [place] [address] Phys: Bernard Coon MD Acct: [id number] Dis Date: Status: REG ER PHONE #: [phone] Exam Date: 05/05/2019 044 FAX #: [phone] Reas on: Pain s/p Fall EXAMS: CPT CODE: [id number] CT CHEST W/O CONTRAST 24835 <Continued> Degenerative changes of the spine and bilateral hips are present. No acute fracture identified. IMPRESSION: 1. No acute traumatic injury demonstrated in the chest, abdomen, or pelvis however evaluation of the solid organs as well as bowel and pelvic structures and mediastinal structures is limited without intravenous contrast. 2. Aortic and coronary calcifications. at 8240 Reported and signed by: Garry Hughes MD CC: Bernard Coon MD; Teofilo Summers MD Technologist:CEASAR CLARK RT(R),RDMS,CT CTDI: DLP: Trnscb Date/Time: 05/05/2019 (0552) [email or web address] Orig Print D/T: S: 05/05/2019 (0555) PAGE 2 Signed Report - CT ABD PELVIS W/O [id number] 05:52:00 Name: STEVE BENEDICT [facility] : 1945 Age/S: 73 / M [address] [facility] Unit #: [id number] Loc: [place] [address] Phys: Hannon MD Acct: [id number] Di s Date: Status: REG ER PHONE #: [phone] Exam Date: 05/05/2019439 FAX #: Reason: Pain s/p Fall EXAMS: CPT CODE: [id number] CT ABD PELVIS W/O CONT 42096 HISTORY: Pain and fall COMPARISON:None TECHNIQUE: Axial [...] PAGE 1 Signed Report (CONTINUED) [facility] 1945 Age/S: 73 / M [address] [facility] Unit #: [id number] Lo c: [place] [address] Phys: Bernard Coon MD Acct: [id number] Dis Date: Status: REG ER PHONE #: [phone] Exam Date: 05/05/2019439 FAX #: [phone] Reas on: Pain s/p Fall EXAMS: CPT CODE: [id number] CT ABD PELVIS W/O CONT 60414 <Continued> Degenerative changes of the spine and [...] 2 Signed Report - CT C-SPINE W/O [id number] 05:51:00 Name: STEVE BENEDICT [facility] : 1945 Age/S: 73 / M [address] [facility] Unit #: [id number] Loc: [place] [address] Phys: Bernard Coon MD Acct: [id number] Dis Date: Status: REG ER PHONE #: [phone] Exam Date: 05/05/2019439 FAX #: [phone] Reason: Pain s/p Fall EXAMS: CPT CODE: [id number] CT C-SPINE W/O CONTRAST 31547 EXAM: - CT C-SPINE W/O CONTRAST HISTORY: Fall. TECHNIQUE: Axial tomograms through the cervical spine were obtained without intravenous contrast. Sagittal and coronal reformatted images are provided. This exam was performed according to our departmental dose-optimization program, which includes automated exposure control, adjustment of [...] present at multiple levels. IMPRESSION: No acute osseous abnormality with other findings as above. at 0562 Reported and signed by: Luis Roy MD CC: Bernard Coon MD; Teofilo Summers MD Technologist:CEASAR CLARK(R),RDMS,CT CTDI: DLP: Trnscb Date/Time: 05/05/2019 (0551) [email or web address] Orig Print D/T: S: 05/05/2019 (0562) PAGE 1 Signed Report - XR ELBOW 3 + V [id number] 05:45:00 Name: STEVE BENEDICT [facility] : 1945 Age/S:73 /M [address] [facility] Unit#:[id number] Loc: [place] [address] Phys: Hannon MD Dis Date: PHONE #: [phone] Status: REG ER FAX #: [phone] Exam Date: 05/05/2019 Re ason: S/P FALL EXAMS: CPT CODE: [id number] XR ELBOW 3 + V RT 44278 HISTORY: Pain Location : C3 FINDINGS: Right elbow: 3 images of the right elbow are provide d. Degenerative changes are present. No significant elbow joint effusion . No acute fracture. No other acute osseous abnormality. L eft elbow: 3 images of left elbow are [...] other acute osseous abnormality seen involving the bilatera l elbows right wrist. Electronically Signed by Garry Hughes MD on 0 05/05/2019 at 0545 Reported and signed by: Garry Hughes MD CC: Bernard Coon MD; Teofilo Summers MD T echnologist: CEASAR CLARK RT(R),RDMS,CT Trnscrpt Keshav a: 05/05/2019 (0545) [email or web address] Orig Print D/T: S: 05/05 (0548) PAGE 1 Signed Report - XR ELBOW 3 + V [id number] 05:45:00 Name: STEVE BENEDICT [facility] : 1945 Age/S:73 /M [address] [facility] Unit#:[id number] Loc: [place] [address] Phys: Hannon MD Dis Date: PHONE #: [phone] Status: REG ER FAX #: [phone] Exam Date: 05/05/2019 Re ason: Pain s/p Fall EXAMS: CPT CODE: [id number] XR ELBOW 3 + V LT [address]25 HISTORY: Pain Location : C3 FINDINGS: Right elbow: 3 images of the right elbow are provide d. Degenerative changes are present. No significant elbow joint effusion . No acute fracture. No other acute osseous abnormality. L eft elbow: 3 images of left elbow are [...] other acute osseous abnormality seen involving the bilatera l elbows right wrist. Electronically Signed by Garry Hughes MD on 0 05/05/2019 at 0545 Reported and signed by: Garry Hughes MD CC: Bernard Coon MD; Teofilo Summers MD echnologist: CEASAR CLARK RT(R),RDMS,CT Trnscrpt Keshav a: 05/05/2019 (0545) [email or web address] Orig Print D/T: S: 05/05 (0548) PAGE 1 Signed Report - XR WRIST 3 + V [id number] 05:45:00 Name: STEVE BENEDICT [facility] : 1945 Age/S:73 /M [address] [facility] Unit#:[id number] Loc: [place] [address] Phys: Hannon MD Dis Date: PHONE #: [phone] Status: REG ER FAX #: [phone] Exam Date: 05/05/2019 Re ason: Pain s/p Fall EXAMS: CPT CODE: [id number] XR WRIST 3 + V RT 37809 HISTORY: Pain Location : C3 FINDINGS: Right elbow: 3 images of the right elbow are provide d. Degenerative changes are present. No significant elbow joint effusion . No acute fracture. No other acute osseous abnormality. L eft elbow: 3 images of left elbow are [...] other acute osseous abnormality seen involving the bilatera l elbows right wrist. Electronically Signed by Garry Hughes MD on 0 05/05/2019 at 0545 Reported and signed by: Garry Hughes MD CC: Bernard Coon MD; Teofilo Summers MD T echnologist: CEASAR CLARK RT(R),RDMS,CT Trnscrpt Keshav a: 05/05/2019 (9973) [email or web address] Orig Print D/T: S: 05/05 (5506) PAGE 1 Signed Report - XR WRIST 3 + V [id number] 05:45:00 [facility] 1945 Age/S:73 /M [address] [facility] Unit#:[id number] Loc: [place] [address] Phys: Hannon MD Dis Date: PHONE #: [phone] Status: DEP ER FAX #: [phone] Exam Date: 05/05/2019 Re ason: Pain s/p Fall EXAMS: CPT CODE: [id number] XR WRIST 3 + V RT 85692 HISTORY: Pain Location : C3 FINDINGS: Right elbow: 3 images of the right elbow are provide d. Degenerative changes are present. No significant elbow joint effusion . No acute fracture. No other acute osseous abnormality. L eft elbow: 3 images of left elbow are [...] other acute osseous abnormality seen involving the bilatera l elbows right wrist. Electronically Signed by Garry Hughes MD on 0 05/05/2019 at 0545 Reported and signed by: Garry Hughes MD CC: Bernard Coon MD; Teofilo Summers MD T echnologist: CEASAR CLARK RT(R),RDMS,CT Trnscrpt Keshav a: 05/05/2019 (1550) [email or web address] Orig Print D/T: S: 05/05 (8499) PAGE 1 Signed Report BASIC METABOLIC [id number] 04:50:00* Test Item Value Reference Range Interpretation [...] CA) 8.9 mg/dL 8.4-10.2 N HEPATIC FUNCTION [id number] 04:50:00* Test Item Value Reference Range Interpretation [...] code = ALKP) 98 U/L 38-126 N [id number] 04:50:00* Test Item Value Reference Range Interpretation Comments MAGNESIUM (test code = MAG) 2.4 mg/dL 1.6-2.3 H [id number] 04:50:00* Test Item Value Reference Range Interpretation Comments TROPONIN-I (test code = TROPI) 0.02 ng/mL 0.00-0.056 N BASIC METABOLIC [id number] 04:48:00* Test Item Value Reference Range Interpretation Comments SODIUM (test code = NA) 136 mmol/L 136-145 N POTASSIUM (test code = K) 2.9 mmol/L 3.5-5.1 L Re sults called to MELISA ChristinaLABDaltonIN 05/05/19 0442Critical results verified and read back [...] CA) 8.9 mg/dL 8.4-10.2 N HEPATIC FUNCTION [id number] 04:48:00* Test Item Value Reference Range Interpretation [...] code = ALKP) 98 U/L 38-126 N [id number] 04:48:00* Test Item Value Reference Range Interpretation Comments MAGNESIUM (test code = MAG) 2.4 mg/dL 1.6-2.3 H [id number] 04:48:00* Test Item Value Reference Range Interpretation Comments TROPONIN-I (test code = TROPI) 0.02 ng/mL 0.00-0.056 N PROTHROMBIN [id number] 04:44:00* Test Item Value Reference Range Interpretation [...] 3.5-5.1 L Re sults called to MELISA ChristinaLABDaltonIN 05/05/19 0442Critical results verified and read back [...] CA) 8.9 mg/dL 8.4-10.2 N HEPATIC FUNCTION [id number] 04:43:00* Test Item Value Reference Range Interpretation [...] TOTAL (test code = ALKP) IUnit/L 45-117 MKWLMKZQI3552-75-24 04:43:00* Test Item Value Reference Range Interpretation Comments MAGNESIUM (test code = MAG) mg/dL 1.8-2.4 [id number] 04:43:00* Test Item Value Reference Range Interpretation Comments TROPONIN-I (test code = TROPI) ng/mL 0-0.045 CBC W/AUTO [id number] 04:30:00* Test Item Value Reference Range Interpretation [...] REQUIRED (test code = MDIFF) NO Bedside Zawtrfs0920-68-33 09:07:00* Test Item Value Reference Range Interpretation Comments Bedside Glucose (test code = 32002-3) 126 70-120 H Meter ID: [id number] [facility]odium Level 2019-05-04 06:01:00* Test Item Value Reference Range Interpretation Comments Sodium Level (test code = 2951-2) 138 136-145 [facility] CenterPotassium Dilya1704-23-70 06:01:00* Test Item Value Reference Range Interpretation Comments Potassium Level (test code = 2823-3) 3.5 3.5-5.1 [facility] CenterChloride Zulxz0869-45-88 06:01:00* Test Item Value Reference Range Interpretation Comments Chloride Level (test code = 2075-0) 81 98-107 L [facility] CenterCarbon Dioxide Gvujh0238-31-01 06:01:00* Test Item Value Reference Range Interpretation Comments Carbon Dioxide Level (test code = 2028-9) 43 22-29 HH Results repeated and called to AMINA LEWIS RN at 0600 on 05/04/19 by Roula kincaid Read back and verified.[facility] CenterAnion Gap 2019-05-04 06:01:00* Test Item Value Reference Range Interpretation Comments Anion Gap (test code = 75523-9) 17.5 8-16 H [facility] CenterBlood Urea Edesyrrk9168-78-25 06:01:00* Test Item Value Reference Range Interpretation Comments Blood Urea Nitrogen (test code = 3094-0) 95 7-26 H [facility] CenterCreatinine2019-07-09 06:01:00* Test Item Value Reference Range Interpretation Comments Creatinine (test code = 2160-0) 2.57 0.72-1.25 H [facility] CenterBUN/Creatinine Hgrrv9236-11-24 06:01:00* Test Item Value Reference Range Interpretation Comments BUN/Creatinine Ratio (test code = 3097-3) 37 6-25 H [facility] CenterEstimat Glomerular Filtration Rate 2019-05-04 06:01:00* Test Item Value Reference Range Interpretation Comments Estimat Glomerular Filtration Rate (test code = 821728377) 25 >60 L Ranges were taken from the National Kidney Disease Education Program and the [facility] Kid[facility] Foundation literature.Reference ranges:60 or greater: Pjxmrh98-35 ( for 3 consecutive months): Chronic kidney disease 15 or less: Kidney failureHCA [facility] Healthcare Medical CenterGlucose Jrgcs6027-33-67 06:01:00* Test Item Value Reference Range Interpretation Comments Glucose Level (test code = BWH9548) 120 74-118 H [facility] CenterCalcium Cpnlz1192-47-78 06:01:00* Test Item Value Reference Range Interpretation Comments Calcium Level (test code = 71257-6) 10.2 8.4-10.2 [facility] CenterMagnesium Iedwa3819-24-71 06:01:00* Test Item Value Reference Range Interpretation Comments Magnesium Level (test code = 05259-2) 3.1 1.3-2.1 H [facility] CenterB-Type Natriuretic Nvybwbk5869-30-41 05:55:00* Test Item Value Reference Range Interpretation Comments B-Type Natriuretic Peptide (test code = 21600-1) 175.1 0-100 H [facility] CenterWhite Blood Mvnxp1828-81-80 05:32:00* Test Item Value Reference Range Interpretation Comments White Blood Count (test code = 6690-2) 10.03 4.8-10.8 [facility] CenterRed Blood Zfwky5656-29-18 05:32:00* Test Item Value Reference Range Interpretation Comments Red Blood Count (test code = 789-8) 5.79 4.3-5.7 H [facility] CenterHemoglobin2019-07-09 05:32:00* Test Item Value Reference Range Interpretation Comments Hemoglobin (test code = 39807-2) 16.2 14.0-18.0 [facility] CenterHematocrit2019-07-09 05:32:00* Test Item Value Reference Range Interpretation Comments Hematocrit (test code = 4544-3) 51.0 38.2-49.6 H [facility] CenterMean Corpuscular Ulsucj0510-97-53 05:32:00* Test Item Value Reference Range Interpretation Comments Mean Corpuscular Volume (test code = 787-2) 88.1 81-99 [facility] CenterMean Corpuscular Iyzohefvki6532-10-89 05:32:00* Test Item Value Reference Range Interpretation Comments Mean Corpuscular Hemoglobin (test code = 785-6) 28.0 28-32 [facility] CenterMean Corpuscular Hemoglobin Concent 2019-05-04 05:32:00* Test Item Value Reference Range Interpretation Comments Mean Corpuscular Hemoglobin Concent (test code = 786-4) 31.8 31-35 [facility] CenterRed Cell Distribution Cpxyo6311-06-76 05:32:00* Test Item Value Reference Range Interpretation Comments Red Cell Distribution Width (test code = 50331-9) 14.8 11.7 -14.4 H [facility] CenterPlatelet Trmvc9251-58-07 05:32:00* Test Item Value Reference Range Interpretation Comments Platelet Count (test code = 777-3) 292 140-360 [facility] CenterNeutrophils (%) (Auto)2019-05-04 05:32:00 * Test Item Value Reference Range Interpretation Comments Neutrophils (%) (Auto) (test code = 95822-2) 77.1 38.7-80.0 [facility] CenterLymphocytes (%) (Auto)2019-05-04 05:32:00 * Test Item Value Reference Range Interpretation Comments Lymphocytes (%) (Auto) (test code = 736-9) 14.1 18.0-39.1 L [facility] CenterMonocytes (%) (Auto)2019-05-04 05:32:00* Test Item Value Reference Range Interpretation Comments Monocytes (%) (Auto) (test code = 5905-5) 8.2 4.4-11.3 [facility] CenterEosinophils (%) (Auto)2019-05-04 05:32:00 * Test Item Value Reference Range Interpretation Comments Eosinophils (%) (Auto) (test code = 713-8) 0.0 0.0-6.0 [facility] CenterBasophils (%) (Auto)2019-05-04 05:32:00* Test Item Value Reference Range Interpretation Comments Basophils (%) (Auto) (test code = 706-2) 0.1 0.0-1.0 [facility] CenterIM GRANULOCYTES %2019-05-04 05:32:00* Test Item Value Reference Range Interpretation Comments IM GRANULOCYTES % (test code = IM GRANULOCYTES %) 0.5 0.0- 1.0 [facility] CenterNeutrophils # (Auto)2019-05-04 05:32:00* Test Item Value Reference Range Interpretation Comments Neutrophils # (Auto) (test code = 751-8) 7.7 2.1-6.9 H [facility] CenterLymphocytes # (Auto)2019-05-04 05:32:00* Test Item Value Reference Range Interpretation Comments Lymphocytes # (Auto) (test code = 55835-4) 1.4 1.0-3.2 [facility] CenterMonocytes # (Auto)2019-05-04 05:32:00* Test Item Value Reference Range Interpretation Comments Monocytes # (Auto) (test code = 742-7) 0.8 0.2-0.8 [facility] CenterEosinophils # (Auto)2019-05-04 05:32:00* Test Item Value Reference Range Interpretation Comments Eosinophils # (Auto) (test code = 711-2) 0.0 0.0-0.4 [facility] CenterBasophils # (Auto)2019-05-04 05:32:00* Test Item Value Reference Range Interpretation Comments Basophils # (Auto) (test code = 704-7) 0.0 0.0-0.1 [facility] CenterAbsolute Immature Granulocyte (auto 2019-05-04 05:32:00* Test Item Value Reference Range Interpretation Comments Absolute Immature Granulocyte (auto (bharat t code = Absolute Immature Granulocyte (auto) 0.05 0-0.1 [facility] CenterBlood Htwgavr2006-01-74 17:48:00* Test Item Value Reference Range Interpretation Comments Blood Culture (test code = 12669256) NO GROWTH AFTER 72 HOURS [facility] CenterUric Pzim4588-77-38 18:10:00* Test Item Value Reference Range Interpretation Comments Uric Acid (test code = 3084-1) 8.3 4.8-8.0 H [facility] CenterUric Nmub1421-01-93 18:10:00* Test Item Value Reference Range Interpretation Comments Uric Acid (test code = 3084-1) 8.3 4.8-8.0 H [facility] CenterUric Hmcs8164-35-58 18:10:00* Test Item Value Reference Range Interpretation Comments Uric Acid (test code = 3084-1) 8.3 4.8-8.0 H [facility] CenterUric Kjgp5305-60-80 18:10:00* Test Item Value Reference Range Interpretation Comments Uric Acid (test code = 3084-1) 8.3 4.8-8.0 H [facility] CenterUric Cmgr1859-65-50 18:10:00* Test Item Value Reference Range Interpretation Comments Uric Acid (test code = 3084-1) 8.3 4.8-8.0 H [facility] CenterUric Btqq0229-53-63 18:10:00* Test Item Value Reference Range Interpretation Comments Uric Acid (test code = 3084-1) 8.3 4.8-8.0 H [facility] CenterMRI HAND RIGHT [id number] 08:40:00 [place] [address] Patient Name: STEVE BENEDICT MR #: [id number] : 1945 Age/Sex: 73/M Req #: [id number] Adm Physician: ROSALIE MEDINA MD Ordered by: Tamela Yougn NP Report #: [id number] Location: MED/SURG2 Room/Bed: [facility] Procedure: [id number] M RI/MRI HAND RIGHT WO Exam Date: [...] seen to suggest osteomyelitis. Signed by: Dr. Anton Hammer M.D. on 04/30/2019 8:47 AM Dictated By: ANTON HAMMER MD, MD 6 T ranscribed By: ERAN on 04/30/19846 COPY TO: TAMELA YOUNG NP Hemoglobin A1c Odwfnqt3479-80-71 15:13:00* Test Item Value Reference Range Interpretation Comments Hemoglobin A1c Percent (test code = Hemoglobin A1c Percent) 5.6 4.0-7.0 [facility] CenterHemoglobin A1c Ioussel7577-04-43 15:13:00 * Test Item Value Reference Range Interpretation Comments Hemoglobin A1c Percent (test code = Hemoglobin A1c Percent) 5.6 4.0-7.0 [facility] CenterCreatine Errijb7645-99-67 14:30:00* Test Item Value Reference Range Interpretation Comments Creatine Kinase (test code = 2157-6) 73 30-200 [facility] CenterCreatine Kinase GN2340-57-20 13:53:00* Test Item Value Reference Range Interpretation Comments Creatine Kinase MB (test code = 96260-2) 2.50 0-5.0 [facility] CenterTroponin Q4870-38-34 13:53:00* Test Item Value Reference Range Interpretation Comments Troponin I (test code = XMV3221) < 0.001 0-0.300 [facility] CenterT[facility] Vrwavzkqj8480-96-96 06:34:00* Test Item Value Reference Range Interpretation Comments Total Bilirubin (test code = 1975-2) 0.5 0.2-1.2 [facility] CenterAspartate Amino Transf (AST/SGOT) 2019-04-24 06:34:00* Test Item Value Reference Range Interpretation Comments Aspartate Amino Transf (AST/SGOT) (test code = Aspartate Amino Transf (AST/SGOT)) 16 5-34 [facility] CenterAlanine Aminotransferase (ALT/SGPT) 2019-04-24 06:34:00* Test Item Value Reference Range Interpretation Comments Alanine Aminotransferase (ALT/SGPT) (test code = 1742-6) 13 0-55 [facility] CenterTotal Uaknpwy4391-65-50 06:34:00* Test Item Value Reference Range Interpretation Comments Total Protein (test code = 2885-2) 6.3 6.5-8.1 L [facility] CenterAlbumin2019-06-29 06:34:00* Test Item Value Reference Range Interpretation Comments Albumin (test code = 1751-7) 3.4 3.5-5.0 L [facility] CenterGlobulin2019-06-29 06:34:00* Test Item Value Reference Range Interpretation Comments Globulin (test code = 86003-7) 2.9 2.3-3.5 [facility] CenterAlbumin/Globulin Gsrav4094-13-28 06:34:00 * Test Item Value Reference Range Interpretation Comments Albumin/Globulin Ratio (test code = 1759-0) 1.2 0.8-2.0 [facility] CenterAlkaline Kaytkztwafi9766-45-07 06:34:00* Test Item Value Reference Range Interpretation Comments Alkaline Phosphatase (test code = 6768-6) 87 40-150 [facility] CenterCHEST 2 XORII5887-71-02 18:58:00 [facility] [address] [place] [address] Patient Name: STEVE BENEDICT MR #: [id number] : 1945 Age/Sex: 73/M Req #: [id number] Adm Physician: Ordered by: IBAN RAMOS MD Report #: [id number] Location: ER Room/Bed: Procedure: [id number] DX/ CHEST 2 VIEWS Exam Date: 04/23/19 [...] 01 COPY TO: IBAN RAMOS MD Prothrombin Xova3248-81-45 18:33:00* Test Item Value Reference Range Interpretation Comments Prothrombin Time (test code = 5902-2) 13.7 11.9-14.5 [facility] CenterProthromb Time International Ratio 2019-04-23 18:33:00* Test Item Value Reference Range Interpretation Comments Prothromb Time International Ratio (test code = 6301-6) 1.00 Oral Anticoagulant Therapy INR Values:1. Low Intensity Therapy 1.5 - 2.02 . Moderate Intensity Therapy 2.0 - 3.03. High Intensity Therapy(1) 2.5 - 3. 54. High Intensity Therapy(2) 3.0 - 4.05. Panic Value INR > 5.0 [facility] CenterActivated Partial Thromboplast Time 2019-04-23 18:33:00* Test Item Value Reference Range Interpretation Comments Activated Partial Thromboplast Time (test code = 30603-0) 35.8 23.8-35.5 H [facility] CenterUrine NKK5206-23-57 18:19:00* Test Item Value Reference Range Interpretation Comments Urine WBC (test code = 5821-4) 6-10 0-5 H [facility] CenterUrine UQV8268-13-34 18:19:00* Test Item Value Reference Range Interpretation Comments Urine RBC (test code = 19791-5) NONE 0-5 [facility] CenterUrine Yzydarpf1184-72-23 18:19:00* Test Item Value Reference Range Interpretation Comments Urine Bacteria (test code = 63404-5) MODERATE NONE H [facility] CenterUrine Epithelial Hkqbv0750-98-97 18:19:00 * Test Item Value Reference Range Interpretation Comments Urine Epithelial Cells (test code = 65049-5) FEW NONE [facility] CenterUrine Hyaline Ahukd5818-46-56 18:19:00* Test Item Value Reference Range Interpretation Comments Urine Hyaline Casts (test code = 97295-8) 0-1 0-1 [facility] CenterUrine Hyaline Pgnln4412-42-33 18:19:00* Test Item Value Reference Range Interpretation Comments Urine Hyaline Casts (test code = 21874-6) 0-1 0-1 [facility] CenterUrine Hyaline Atvqc9883-32-95 18:19:00* Test Item Value Reference Range Interpretation Comments Urine Hyaline Casts (test code = 73829-3) 0-1 0-1 [facility] CenterUrine Hyaline Yddne9432-22-02 18:19:00* Test Item Value Reference Range Interpretation Comments Urine Hyaline Casts (test code = 72631-5) 0-1 0-1 [facility] Hyaline Fmdun7184-73-13 18:19:00* Test Item Value Reference Range Interpretation Comments Urine Hyaline Casts (test code = 51575-8) 0-1 0-1 [facility] CenterUrine Hyaline Yczcz9308-21-73 18:19:00* Test Item Value Reference Range Interpretation Comments Urine Hyaline Casts (test code = 35566-1) 0-1 0-1 [facility] CenterUrine Htbtg9024-85-23 18:03:00* Test Item Value Reference Range Interpretation Comments Urine Color (test code = 5778-6) YELLOW YELLOW [facility] CenterUrine Jsshkjz2905-76-32 18:03:00* Test Item Value Reference Range Interpretation Comments Urine Clarity (test code = 40571-5) CLEAR CLEAR [facility] CenterUrine Specific Ofxakvp3753-73-10 18:03:00 * Test Item Value Reference Range Interpretation Comments Urine Specific Devol (test code = 5811-5) 1.010 1.010-1.02 5 [facility] CenterUrine fL6334-76-99 18:03:00* Test Item Value Reference Range Interpretation Comments Urine pH (test code = 01706-7) 6 5-7 [facility] CenterUrine Leukocyte Yxpajzwc4889-26-06 18:03:00* Test Item Value Reference Range Interpretation Comments Urine Leukocyte Esterase (test code = 44754-9) NEGATIVE NEGATIV E [facility] CenterUrine Upowsdi4384-63-20 18:03:00* Test Item Value Reference Range Interpretation Comments Urine Nitrite (test code = 28070-4) NEGATIVE NEGATIVE [facility] CenterUrine Norykxb8848-09-26 18:03:00* Test Item Value Reference Range Interpretation Comments Urine Protein (test code = 86736-4) NEGATIVE NEGATIVE [facility] CenterUrine Glucose (UA)2019-04-23 18:03:00* Test Item Value Reference Range Interpretation Comments Urine Glucose (UA) (test code = 68424-7) NEGATIVE NEGATIVE [facility] Votymsu2650-41-19 18:03:00* Test Item Value Reference Range Interpretation Comments Urine Ketones (test code = 09065-6) NEGATIVE NEGATIVE [facility] Suzzpnzofusy4901-56-02 18:03:00* Test Item Value Reference Range Interpretation Comments Urine Urobilinogen (test code = 46324-4) 0.2 0.2-1 [facility] CenterUrine Pegydcdon0649-52-38 18:03:00* Test Item Value Reference Range Interpretation Comments Urine Bilirubin (test code = 1977-8) NEGATIVE NEGATIVE [facility] Gbmzp7776-38-97 18:03:00* Test Item Value Reference Range Interpretation Comments Urine Blood (test code = 92064-4) NEGATIVE NEGATIVE [facility] T-SPINE W/O YWTTAGBH4473-44-22 16:27:00 Name: STEVE BENEDICT [facility] : 1945 Age/S: 73 / M [address] [facility] Unit #: [id number] Loc: [place] [address] Phys: Adam Hawkins MD Acct: [id number] Dis Date: Status: REG ER PHONE #: [phone] Exam Date: 04/03/2019 1530 FAX #: [phone] Reason: pain, fall EXAMS: CPT CODE: [id number] CT T-SPINE W/O CONTRAST 44765 HISTORY: pain, fall TECHNIQUE: CT of the [...] CC: Teofilo Summers MD; Adam Hawkins MD Technologi st:Maria Elena Mejia CTDI: DLP: Trnscb Date/Time: (1627) [email or web address] Orig Print D/T: S: 04/03/2019 ( 5139) PAGE 1 Signed Report - XR HIP W/PEL UNI 2+V [id number] 15:52:00 [facility] 1945 Age/S:73 /M [address] [facility] Unit#:[id number] Loc: Magali Fernandez [address] Phys: Adam Hawkins MD Dis Date: PHONE #: [phone] Status: REG ER FAX #: [phone] Exam Date: 04/03/2019 Reason: pain, fall EXAMS: CPT CODE: [id number] XR HIP W/PEL UNI 2+[place] [address] HISTORY: pain, fall TECHNIQUE: Single frontal view [...] Technologist: Maria Elena Mejia Trnscrpt Data: 04/03/2019 (2017) [email or web address] Orig Print D/T: S: 04/03/2019 (3518) PAGE 1 Signed Report - XR ANKLE 3 + V [id number] 15:39:00 Name: STEVE BENEDICT [facility] : 1945 Age/S:73 /M [address] [facility] Unit#:[id number] Loc: [place] [address] Phys: Adam Hawkins MD Dis Date: PHONE #: [phone] Status: REG ER FAX #: [phone] Exam Date: 04/03/2019 Reason: pain, fall EXAMS: CPT CODE: [id number] XR ANKLE 3 + V RT 97815 HISTORY: pain, fall TECHNIQUE: Frontal, oblique, and lateral views of the right ankle. COMPARISON: None FINDINGS: The right ankle joint is congruent with no evidence of acute fracture or dislocation. Degenerative osteophytosis is seen. Leg edema is present with sock sign. Soft tissue swelling overlying the medial malleolus. IMPRESSION: Negative for acute fracture or dislocation. Degenerative changes and soft tissue edema. at 1538 Reported and signed by: Antonia Forman M.D. 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 De Luna Pre-operative diagnosis: Tunneled central ve nous catheter [...] po sition on the fluoroscopic table. A six sigma black trainer image was obtained, showing stable p osition [...] central venous catheter. Signed by: Dr. Robin De Luna M.D. on 02/15/2019 2:33 PM Dictated By: ROBIN DE LUNA MD 32 Transcribed By: ERAN on 02/15/191432 COPY TO: TAMELA RUBIO NP IR HYQLAUS5376-06-64 14:30:00 [place] [address] Patient Name: STEVE BENEDICT MR #: [id number] : 1945 Age/Sex: 73/M Req #: [id number] Adm Physician: ROSALIE MEDINA MD Ordered by: Tamela Young NP Report #: [id number] Location: MED/SURG3 Room/Bed: [facility] Procedure: [id number] D X/IR CONSULT Exam Date: Exam Time: REPORT STATUS: Signed Date and Time: 02/15/2019 Procedure: Removal of tunneled central venous catheter Primary operato r: Dr. De Luna Pre-operative diagnosis: Tunneled central venous catheter n o longer needed Post-operative diagnosis: Tunneled central venous [...] position on the f luoroscopic table. A six sigma black trainer image was obtained, showing stable position of the right internal jugular tunneled low flow central venous catheter with the tip projecting over the superior cavoatrial junction. The right upper chest a nd existing catheter were then prepped and draped in the standard sterile fash ion. 1% lidocaine was infiltrated into the [...] venous cathet er. Signed by: Dr. Robin De Luna M.D. on 02/15/2019 2:33 PM Dictated By: ROBIN DE LUNA MD 14 33 Transcribed By: ERAN on 02/15/19 5512 COPY TO: TAMELA YOUNG NP Bedside Jhdlrji4602-31-09 11:43:00* Test Item Value Reference Range Interpretation Comments Bedside Glucose (test code = 59289-5) 126 70-120 H Meter ID: [id number] [facility] Medical CenterB-Type Natriuretic Zarercn2617-80-22 07:04:00* Test Item Value Reference Range Interpretation Comments B-Type Natriuretic Peptide (test code = 40977-5) 91.6 0-100 [facility] CenterActivated Partial Thromboplast Time 2019-02-15 07:01:00* Test Item Value Reference Range Interpretation Comments Activated Partial Thromboplast Time (test code = 24147-4) 38.9 23.8-35.5 H [facility] CenterProthrombin Qflv6437-28-57 07:00:00* Test Item Value Reference Range Interpretation Comments Prothrombin Time (test code = 5902-2) 13.4 11.9-14.5 [facility] CenterProthromb Time International Ratio 2019-02-15 07:00:00* Test Item Value Reference Range Interpretation Comments Prothromb Time International Ratio (test code = 6301-6) 0.97 Oral Anticoagulant Therapy INR Values:1. Low Intensity Therapy 1.5 - 2.02 . Moderate Intensity Therapy 2.0 - 3.03. High Intensity Therapy(1) 2.5 - 3. 54. High Intensity Therapy(2) 3.0 - 4.05. Panic Value INR > 5.0 [facility] Pxtcf7347-56-42 06:47:00* Test Item Value Reference Range Interpretation Comments Sodium Level (test code = 2951-2) 139 136-145 [facility] CenterPotassium Vnlep5423-63-97 06:47:00* Test Item Value Reference Range Interpretation Comments Potassium Level (test code = 2823-3) 4.7 3.5-5.1 [facility] CenterChloride Htxzs3217-45-89 06:47:00* Test Item Value Reference Range Interpretation Comments Chloride Level (test code = 2075-0) 84 98-107 L [facility] CenterCarbon Dioxide Lysjh6630-92-33 06:47:00* Test Item Value Reference Range Interpretation Comments Carbon Dioxide Level (test code = 2028-9) 42 22-29 Results repeated and called to KURT CARPENTER RN at 0647 on 02/15/19 by Roula Rivera. Read back and verified.[facility] CenterAnion Gap 2019-02-15 06:47:00* Test Item Value Reference Range Interpretation Comments Anion Gap (test code = 38028-8) 17.7 8-16 H [facility] CenterBlood Urea Evvxunhh0475-56-89 06:47:00* Test Item Value Reference Range Interpretation Comments Blood Urea Nitrogen (test code = 3094-0) 68 7-26 H [facility] CenterCreatinine2019-04-22 06:47:00* Test Item Value Reference Range Interpretation Comments Creatinine (test code = 2160-0) 2.16 0.72-1.25 H [facility] CenterBUN/Creatinine Zddke6017-41-74 06:47:00* Test Item Value Reference Range Interpretation Comments BUN/Creatinine Ratio (test code = 3097-3) 31 6-25 H [facility] CenterEstimat Glomerular Filtration Rate 2019-02-15 06:47:00* Test Item Value Reference Range Interpretation Comments Estimat Glomerular Filtration Rate (test code = 946650173) 30 >60 L Ranges were taken from the National Kidney Disease Education Program and the [facility] Foundation literature.Reference ranges:60 or greater: Ptibrv09-91 ( for 3 consecutive months): Chronic kidney disease 15 or less: Kidney failureCHI [facility] KingwoodGlucose Kudzg6206-30-26 06:47:00* Test Item Value Reference Range Interpretation Comments Glucose Level (test code = ARY2859) 140 74-118 H [facility] CenterCalcium Rqjdu8789-38-65 06:47:00* Test Item Value Reference Range Interpretation Comments Calcium Level (test code = 10141-0) 10.4 8.4-10.2 H [facility] CenterMagnesium Hzijr5909-13-39 06:47:00* Test Item Value Reference Range Interpretation Comments Magnesium Level (test code = 32601-8) 3.3 1.3-2.1 H [facility] CenterWhite Blood Pwnxw0364-01-13 06:30:00* Test Item Value Reference Range Interpretation Comments White Blood Count (test code = 6690-2) 8.88 4.8-10.8 [facility] CenterRed Blood Pgakd6574-43-40 06:30:00* Test Item Value Reference Range Interpretation Comments Red Blood Count (test code = 789-8) 6.03 4.3-5.7 H [facility] CenterHemoglobin2019-04-22 06:30:00* Test Item Value Reference Range Interpretation Comments Hemoglobin (test code = 41920-7) 16.4 14.0-18.0 [facility] CenterHematocrit2019-04-22 06:30:00* Test Item Value Reference Range Interpretation Comments Hematocrit (test code = 4544-3) 54.5 38.2-49.6 H [facility] CenterMean Corpuscular Uexgwf5214-65-59 06:30:00* Test Item Value Reference Range Interpretation Comments Mean Corpuscular Volume (test code = 787-2) 90.4 81-99 [facility] CenterMean Corpuscular Mgzlgyqpkj8718-98-63 06:30:00* Test Item Value Reference Range Interpretation Comments Mean Corpuscular Hemoglobin (test code = 785-6) 27.2 28-32 L [facility] CenterMean Corpuscular Hemoglobin Concent 2019-02-15 06:30:00* Test Item Value Reference Range Interpretation Comments Mean Corpuscular Hemoglobin Concent (test code = 786-4) 30.1 31-35 L [facility] CenterRed Cell Distribution Nplsh6299-36-37 06:30:00* Test Item Value Reference Range Interpretation Comments Red Cell Distribution Width (test code = 02865-8) 16.2 11.7 -14.4 H [facility] CenterPlatelet Kqabv5325-73-58 06:30:00* Test Item Value Reference Range Interpretation Comments Platelet Count (test code = 777-3) 293 140-360 [facility] CenterNeutrophils (%) (Auto)2019-02-15 06:30:00 * Test Item Value Reference Range Interpretation Comments Neutrophils (%) (Auto) (test code = 41554-7) 65.2 38.7-80.0 [facility] CenterLymphocytes (%) (Auto)2019-02-15 06:30:00 * Test Item Value Reference Range Interpretation Comments Lymphocytes (%) (Auto) (test code = 736-9) 19.8 18.0-39.1 [facility] CenterMonocytes (%) (Auto)2019-02-15 06:30:00* Test Item Value Reference Range Interpretation Comments Monocytes (%) (Auto) (test code = 5905-5) 11.4 4.4-11.3 H [facility] CenterEosinophils (%) (Auto)2019-02-15 06:30:00 * Test Item Value Reference Range Interpretation Comments Eosinophils (%) (Auto) (test code = 713-8) 2.1 0.0-6.0 [facility] CenterBasophils (%) (Auto)2019-02-15 06:30:00* Test Item Value Reference Range Interpretation Comments Basophils (%) (Auto) (test code = 706-2) 1.0 0.0-1.0 [facility] CenterIM GRANULOCYTES %2019-02-15 06:30:00* Test Item Value Reference Range Interpretation Comments IM GRANULOCYTES % (test code = IM GRANULOCYTES %) 0.5 0.0- 1.0 [facility] CenterNeutrophils # (Auto)2019-02-15 06:30:00* Test Item Value Reference Range Interpretation Comments Neutrophils # (Auto) (test code = 751-8) 5.8 2.1-6.9 [facility] CenterLymphocytes # (Auto)2019-02-15 06:30:00* Test Item Value Reference Range Interpretation Comments Lymphocytes # (Auto) (test code = 53421-2) 1.8 1.0-3.2 [facility] CenterMonocytes # (Auto)2019-02-15 06:30:00* Test Item Value Reference Range Interpretation Comments Monocytes # (Auto) (test code = 742-7) 1.0 0.2-0.8 H [facility] CenterEosinophils # (Auto)2019-02-15 06:30:00* Test Item Value Reference Range Interpretation Comments Eosinophils # (Auto) (test code = 711-2) 0.2 0.0-0.4 [facility] CenterBasophils # (Auto)2019-02-15 06:30:00* Test Item Value Reference Range Interpretation Comments Basophils # (Auto) (test code = 704-7) 0.1 0.0-0.1 [facility] CenterAbsolute Immature Granulocyte (auto 2019-02-15 06:30:00* Test Item Value Reference Range Interpretation Comments Absolute Immature Granulocyte (auto (bharat t code = Absolute Immature Granulocyte (auto) 0.04 0-0.1 [facility] CenterMODIFIED BA. BDPLNPV5711-33-03 08:43:00 [facility] [address] [place] [address] Patient Name: STEVE BENEDICT MR #: [id number] : [birth year] Age/Sex: 73/M Req #: [id number] Adm Physician: ROSALIE MEDINA MD Ordered by: ROSALIE MEDINA MD Report #: [id number] Location: [facility] Room/Bed: [facility] Procedure: [id number] DX /MODIFIED BA. SWALLOW Exam Date: 02/12/19 Exam Time: 0653 REPORT STATUS: Signed EXAM : Modified barium swallow with Speech Pathologist INDICATION: freq PN A [id number] 0653 Y COMPARISON: None available. RADIATION DOSE: Fluoroscopy Time: 1 min 23 seconds Dose (Kerma) Area Product: 788. 1 cGycm2 Air Kerma (AK) value has been reviewed. It is below the limits set by the Radiation Protocol Committee (RPC) committee. FINDINGS: See impression IMPRESSION: Laryngeal penetration was noted with adm inistration of thin liquid. Trace silent aspiration was also noted with thin l iquids. Refer to speech pathology report for further details and recommendatio ns. Signed by: Dr. Robin De Luna M.D. on 02/12/2019 8:44 AM Dictated By: ROBIN DE LUNA MD 3 COPY TO: VON MEDINA MD Hemoglobin A1c Yqbixsr8600-89-50 07:54:00* Test Item Value Reference Range Interpretation Comments Hemoglobin A1c Percent (test code = Hemoglobin A1c Percent) 6.2 4.0-7.0 [facility] Raygfqzqx7227-43-94 07:03:00* Test Item Value Reference Range Interpretation Comments Free Thyroxine (test code = 3024-7) 0.92 0.9-1.8 [facility] CenterThyroid Stimulating Hormone (TSH) 2019-02-12 07:03:00* Test Item Value Reference Range Interpretation Comments Thyroid Stimulating Hormone (TSH) (test code = 18635-9) 1.875 0.350-4.940 [facility] Lpfcoekyc2312-38-05 07:03:00* Test Item Value Reference Range Interpretation Comments Free Thyroxine (test code = 3024-7) 0.92 0.9-1.8 [facility] CenterThyroid Stimulating Hormone (TSH) 2019-02-12 07:03:00* Test Item Value Reference Range Interpretation Comments Thyroid Stimulating Hormone (TSH) (test code = 98291-6) 1.875 0.350-4.940 [facility] Bmmcuovuv1279-44-35 07:03:00* Test Item Value Reference Range Interpretation Comments Free Thyroxine (test code = 3024-7) 0.92 0.9-1.8 [facility] CenterThyroid Stimulating Hormone (TSH) 2019-02-12 07:03:00* Test Item Value Reference Range Interpretation Comments Thyroid Stimulating Hormone (TSH) (test code = 75883-5) 1.875 0.350-4.940 [facility] CenterPhosphorus Hwfec8782-04-80 06:43:00* Test Item Value Reference Range Interpretation Comments Phosphorus Level (test code = LAZ0026) 3.5 2.3-4.7 [facility] CenterPhosphorus Bziqb7071-94-88 06:43:00* Test Item Value Reference Range Interpretation Comments Phosphorus Level (test code = RDL2535) 3.5 2.3-4.7 [facility] CenterPhosphorus Masot7976-26-26 06:43:00* Test Item Value Reference Range Interpretation Comments Phosphorus Level (test code = ZMF2610) 3.5 2.3-4.7 [facility] CenterCreatine Dufdhy2888-91-72 13:44:00* Test Item Value Reference Range Interpretation Comments Creatine Kinase (test code = 2157-6) 127 30-200 [facility] CenterCreatine Kinase ZX1348-53-34 13:44:00* Test Item Value Reference Range Interpretation Comments Creatine Kinase MB (test code = 79310-1) 2.50 0-5.0 [facility] CenterTroponin H7810-50-60 13:44:00* Test Item Value Reference Range Interpretation Comments Troponin I (test code = XPH0584) 0.017 0-0.300 [facility] CenterTotal Ojejgzbov1401-24-64 05:09:00* Test Item Value Reference Range Interpretation Comments Total Bilirubin (test code = 1975-2) 0.6 0.2-1.2 [facility] CenterAspartate Amino Transf (AST/SGOT) 2019-02-09 05:09:00* Test Item Value Reference Range Interpretation Comments Aspartate Amino Transf (AST/SGOT) (test code = Aspartate Amino Transf (AST/SGOT)) 15 5-34 [facility] CenterAlanine Aminotransferase (ALT/SGPT) 2019-02-09 05:09:00* Test Item Value Reference Range Interpretation Comments Alanine Aminotransferase (ALT/SGPT) (test code = 1742-6) 10 0-55 [facility] CenterTotal Zwiwtxx0450-38-94 05:09:00* Test Item Value Reference Range Interpretation Comments Total Protein (test code = 2885-2) 6.7 6.5-8.1 [facility] CenterAlbumin2019-04-16 05:09:00* Test Item Value Reference Range Interpretation Comments Albumin (test code = 1751-7) 3.4 3.5-5.0 L [facility] CenterGlobulin2019-04-16 05:09:00* Test Item Value Reference Range Interpretation Comments Globulin (test code = 11725-6) 3.3 2.3-3.5 [facility] CenterAlbumin/Globulin Qsfud2785-93-35 05:09:00 * Test Item Value Reference Range Interpretation Comments Albumin/Globulin Ratio (test code = 1759-0) 1.0 0.8-2.0 [facility] CenterAlkaline Wggkaykcbrb9466-05-85 05:09:00* Test Item Value Reference Range Interpretation Comments Alkaline Phosphatase (test code = 6768-6) 78 40-150 [facility] CenterCHEST SINGLE (NOT PORTABLE)2019-02-08 15:46:00 [facility] [address] [place] [address] Patient Name: STEVE BENEDICT MR #: [id number] : 1945 Age/Sex: 73/M Req #: [id number] Adm Physician: Ordered by: VENITA PRADO MD Report #: [id number] Location: ER Room/Bed: Procedure: [id number] D X/CHEST SINGLE (NOT PORTABLE) Exam Date: [...] reflect atelectasis or early pneumonia in the [facility] clinical setting. Signed by: Dr. Jose Manuel Person MD on 02/08/2019 3:51 PM Dictated By: JOSE MANUEL PERSON MD COPY TO: ZELALEM PRADO MD Urine XNF8336-26-78 14:47:00* Test Item Value Reference Range Interpretation Comments Urine WBC (test code = 5821-4) NONE 0-5 [facility] CenterUrine HZC9282-34-40 14:47:00* Test Item Value Reference Range Interpretation Comments Urine RBC (test code = 32615-3) NONE 0-5 [facility] CenterUrine Qgocfvpi6755-41-98 14:47:00* Test Item Value Reference Range Interpretation Comments Urine Bacteria (test code = 18622-0) NONE NONE [facility] CenterUrine Epithelial Fmsfd9568-23-37 14:47:00 * Test Item Value Reference Range Interpretation Comments Urine Epithelial Cells (test code = 34942-1) RARE NONE [facility] CenterUrine Svxei7739-89-72 14:38:00* Test Item Value Reference Range Interpretation Comments Urine Color (test code = 5778-6) YELLOW YELLOW [facility] CenterUrine Llnrekl7228-48-92 14:38:00* Test Item Value Reference Range Interpretation Comments Urine Clarity (test code = 56781-8) CLEAR CLEAR [facility] CenterUrine Specific Aelzwdl9874-63-67 14:38:00 * Test Item Value Reference Range Interpretation Comments Urine Specific Devol (test code = 5811-5) 1.010 1.010-1.02 5 [facility] CenterUrine kK4051-38-45 14:38:00* Test Item Value Reference Range Interpretation Comments Urine pH (test code = 64977-7) 7 5-7 [facility] CenterUrine Leukocyte Cenhizxh8422-17-51 14:38:00* Test Item Value Reference Range Interpretation Comments Urine Leukocyte Esterase (test code = 5799-2) NEGATIVE NEGATIVE [facility] CenterUrine Mxcemhx7777-38-70 14:38:00* Test Item Value Reference Range Interpretation Comments Urine Nitrite (test code = 93888-9) NEGATIVE NEGATIVE [facility] Wcgdhbf6738-73-91 14:38:00* Test Item Value Reference Range Interpretation Comments Urine Protein (test code = 5804-0) NEGATIVE NEGATIVE [facility] Glucose (UA)2019-02-08 14:38:00* Test Item Value Reference Range Interpretation Comments Urine Glucose (UA) (test code = 2349-9) NEGATIVE NEGATIVE [facility] Qbzrpqd8616-79-89 14:38:00* Test Item Value Reference Range Interpretation Comments Urine Ketones (test code = 74103-4) NEGATIVE NEGATIVE [facility] Vakglcklpkan4553-73-62 14:38:00* Test Item Value Reference Range Interpretation Comments Urine Urobilinogen (test code = 80098-3) 0.2 0.2-1 [facility] Dtihaehnd2040-42-14 14:38:00* Test Item Value Reference Range Interpretation Comments Urine Bilirubin (test code = 1978-6) NEGATIVE NEGATIVE [facility] Hfkpq6806-16-99 14:38:00* Test Item Value Reference Range Interpretation Comments Urine Blood (test code = 97620-2) NEGATIVE NEGATIVE [facility] Xjkbiew4511-13-98 05:29:00* Test Item Value Reference Range Interpretation Comments Urine Culture (test code = 630-4) Organism: GIOVANNI ALBICANS [facility] Ishoorx3820-83-11 05:29:00* Test Item Value Reference Range Interpretation Comments Urine Culture (test code = 630-4) Organism: GIOVANNI ALBICANS [facility] Nqejxlq6418-45-77 05:29:00* Test Item Value Reference Range Interpretation Comments Urine Culture (test code = 630-4) Organism: GIOVANNI ALBICANS [facility] Nyowcfb6491-22-91 05:29:00* Test Item Value Reference Range Interpretation Comments Urine Culture (test code = 630-4) Organism: GIOVANNI ALBICANS [facility] Phydngd4423-48-66 05:29:00* Test Item Value Reference Range Interpretation Comments Urine Culture (test code = 630-4) No Result Data Provided [facility] Onfooqp6337-35-39 05:29:00* Test Item Value Reference Range Interpretation Comments Urine Culture (test code = 630-4) No Result Data Provided [facility] CenterBlood Kwbauhl0388-28-51 14:41:00* Test Item Value Reference Range Interpretation Comments Blood Culture (test code = 82050022) NO GROWTH AFTER 5 DAYS, FINAL REPORT [facility] CenterBedside Mmkrnem4170-36-49 12:09:00* Test Item Value Reference Range Interpretation Comments Bedside Glucose (test code = 53895-5) 151 70-120 H Meter ID: [id number] [facility] Healthcare Medical CenterUrine Culture 2019-01-09 10:40:00* Test Item Value Reference Range Interpretation Comments Urine Culture (test code = 630-4) Organism: YEAST SPECIES [facility] CenterProcalcitonin2019-03-16 06:48:00* Test Item Value Reference Range Interpretation Comments Procalcitonin (test code = 248706088) 0.07 0.00-0.08 A procalcitonin (PCT) level above [...] any concentrations <2 ng/mL are obtained.Performed at: [address] [id number] Director: Tito Rodriguez MD, Phone: [phone] [facility] Medical CenterProcalcitonin2019-03-16 06:48:00* Test Item Value Reference Range Interpretation Comments Procalcitonin (test code = 291122494) 0.07 0.00-0.08 A procalcitonin (PCT) level above [...] any concentrations <2 ng/mL are obtained.Performed at: [address] [id number] Director: Tito Rodriguez MD, Phone: [phone] [facility] Medical CenterProcalcitonin2019-03-16 06:48:00* Test Item Value Reference Range Interpretation Comments Procalcitonin (test code = 531703282) 0.07 0.00-0.08 A procalcitonin (PCT) level above [...] any concentrations <2 ng/mL are obtained.Performed at: [facility] [id number] Director: Tito Rodriguez MD, Phone: [phone] [facility] Medical CenterProcalcitonin2019-03-16 06:48:00* Test Item Value Reference Range Interpretation Comments Procalcitonin (test code = 524028558) 0.07 0.00-0.08 A procalcitonin (PCT) level above [...] any concentrations <2 ng/mL are obtained.Performed at: [facility] [id number] Director: Tito Rodriguez MD, Phone: [phone] [facility] CenterProcalcitonin2019-03-16 06:48:00* Test Item Value Reference Range Interpretation Comments Procalcitonin (test code = 950733498) 0.07 0.00-0.08 A procalcitonin (PCT) level above [...] any concentrations <2 ng/mL are obtained.Performed at: [facility] [id number] Director: Tito Rodriguez MD, Phone: [phone] [facility] CenterProcalcitonin2019-03-16 06:48:00* Test Item Value Reference Range Interpretation Comments Procalcitonin (test code = 607280552) 0.07 0.00-0.08 A procalcitonin (PCT) level above [...] any concentrations <2 ng/mL are obtained.Performed at: [facility] [id number] Director: Tito Rodriguez MD, Phone: [phone] [facility] Medical CenterProcalcitonin2019-03-16 06:48:00* Test Item Value Reference Range Interpretation Comments Procalcitonin (test code = 242662936) 0.07 0.00-0.08 A procalcitonin (PCT) level above [...] any concentrations <2 ng/mL are obtained.Performed at: [facility] [id number] Director: Tito Rodriguez MD, Phone: [phone] [facility] Medical CenterB-Type Natriuretic Oilqpcn8083-29-88 05:08:00* Test Item Value Reference Range Interpretation Comments B-Type Natriuretic Peptide (test code = 37710-8) 381.1 0-100 [facility] Pheyc8017-74-78 04:31:00* Test Item Value Reference Range Interpretation Comments Sodium Level (test code = 2951-2) 140 136-145 [facility] CenterPotassium Icumh0621-21-52 04:31:00* Test Item Value Reference Range Interpretation Comments Potassium Level (test code = 2823-3) 4.4 3.5-5.1 [facility] CenterChloride Kfaho7216-81-01 04:31:00* Test Item Value Reference Range Interpretation Comments Chloride Level (test code = 2075-0) 91 98-107 L [facility] CenterCarbon Dioxide Tgegv9699-74-94 04:31:00* Test Item Value Reference Range Interpretation Comments Carbon Dioxide Level (test code = 2028-9) 40 22-29 H [facility] CenterAnion Bwt6586-53-64 04:31:00* Test Item Value Reference Range Interpretation Comments Anion Gap (test code = 35183-1) 13.4 8-16 [facility] CenterBlood Urea Vpstyvws3244-61-14 04:31:00* Test Item Value Reference Range Interpretation Comments Blood Urea Nitrogen (test code = 3094-0) 33 7-26 H [facility] CenterCreatinine2019-03-16 04:31:00* Test Item Value Reference Range Interpretation Comments Creatinine (test code = 2160-0) 1.41 0.72-1.25 H [facility] CenterBUN/Creatinine Nwjys1828-74-47 04:31:00* Test Item Value Reference Range Interpretation Comments BUN/Creatinine Ratio (test code = 3097-3) 23 6-25 [facility] CenterEstimat Glomerular Filtration Rate 2019-01-09 04:31:00* Test Item Value Reference Range Interpretation Comments Estimat Glomerular Filtration Rate (test code = 576345433) 49 >60 L Ranges were taken from the National Kidney Disease Education Program and the [facility] Foundation literature.Reference ranges:60 or greater: Svqlvu43-25 ( for 3 consecutive months): Chronic kidney disease 15 or less: Kidney failureHCA [facility] Healthcare Medical CenterGlucose Xzavs3316-13-73 04:31:00* Test Item Value Reference Range Interpretation Comments Glucose Level (test code = JJU9397) 154 74-118 H [facility] CenterCalcium Tzthh5432-17-51 04:31:00* Test Item Value Reference Range Interpretation Comments Calcium Level (test code = 39051-7) 8.8 8.4-10.2 [facility] CenterMagnesium Youqr7580-91-60 04:31:00* Test Item Value Reference Range Interpretation Comments Magnesium Level (test code = 10213-1) 2.5 1.3-2.1 H [facility] CenterWhite Blood Pruqu8482-77-05 04:08:00* Test Item Value Reference Range Interpretation Comments White Blood Count (test code = 6690-2) 8.53 4.8-10.8 [facility] CenterRed Blood Veshj3204-16-25 04:08:00* Test Item Value Reference Range Interpretation Comments Red Blood Count (test code = 789-8) 6.08 4.3-5.7 H [facility] CenterHemoglobin2019-03-16 04:08:00* Test Item Value Reference Range Interpretation Comments Hemoglobin (test code = 04166-4) 16.4 14.0-18.0 [facility] CenterHematocrit2019-03-16 04:08:00* Test Item Value Reference Range Interpretation Comments Hematocrit (test code = 4544-3) 54.7 38.2-49.6 H [facility] CenterMean Corpuscular Ttvryb1457-54-06 04:08:00* Test Item Value Reference Range Interpretation Comments Mean Corpuscular Volume (test code = 787-2) 90.0 81-99 [facility] CenterMean Corpuscular Tsqwakwawf0628-40-00 04:08:00* Test Item Value Reference Range Interpretation Comments Mean Corpuscular Hemoglobin (test code = 785-6) 27.0 28-32 L [facility] CenterMean Corpuscular Hemoglobin Concent 2019-01-09 04:08:00* Test Item Value Reference Range Interpretation Comments Mean Corpuscular Hemoglobin Concent (test code = 786-4) 30.0 31-35 L [facility] CenterRed Cell Distribution Smwfu0104-26-88 04:08:00* Test Item Value Reference Range Interpretation Comments Red Cell Distribution Width (test code = 32499-8) 17.9 11.7 -14.4 H [facility] CenterPlatelet Drdej4328-90-94 04:08:00* Test Item Value Reference Range Interpretation Comments Platelet Count (test code = 777-3) 220 140-360 [facility] CenterNeutrophils (%) (Auto)2019-01-09 04:08:00 * Test Item Value Reference Range Interpretation Comments Neutrophils (%) (Auto) (test code = 97537-8) 87.2 38.7-80.0 H [facility] CenterLymphocytes (%) (Auto)2019-01-09 04:08:00 * Test Item Value Reference Range Interpretation Comments Lymphocytes (%) (Auto) (test code = 736-9) 7.0 18.0-39.1 L [facility] CenterMonocytes (%) (Auto)2019-01-09 04:08:00* Test Item Value Reference Range Interpretation Comments Monocytes (%) (Auto) (test code = 5905-5) 4.6 4.4-11.3 [facility] CenterEosinophils (%) (Auto)2019-01-09 04:08:00 * Test Item Value Reference Range Interpretation Comments Eosinophils (%) (Auto) (test code = 713-8) 0.0 0.0-6.0 [facility] CenterBasophils (%) (Auto)2019-01-09 04:08:00* Test Item Value Reference Range Interpretation Comments Basophils (%) (Auto) (test code = 706-2) 0.1 0.0-1.0 [facility] CenterIM GRANULOCYTES %2019-01-09 04:08:00* Test Item Value Reference Range Interpretation Comments IM GRANULOCYTES % (test code = IM GRANULOCYTES %) 1.1 0.0- 1.0 H [facility] CenterNeutrophils # (Auto)2019-01-09 04:08:00* Test Item Value Reference Range Interpretation Comments Neutrophils # (Auto) (test code = 751-8) 7.4 2.1-6.9 H [facility] CenterLymphocytes # (Auto)2019-01-09 04:08:00* Test Item Value Reference Range Interpretation Comments Lymphocytes # (Auto) (test code = 43059-1) 0.6 1.0-3.2 L [facility] CenterMonocytes # (Auto)2019-01-09 04:08:00* Test Item Value Reference Range Interpretation Comments Monocytes # (Auto) (test code = 742-7) 0.4 0.2-0.8 [facility] CenterEosinophils # (Auto)2019-01-09 04:08:00* Test Item Value Reference Range Interpretation Comments Eosinophils # (Auto) (test code = 711-2) 0.0 0.0-0.4 [facility] CenterBasophils # (Auto)2019-01-09 04:08:00* Test Item Value Reference Range Interpretation Comments Basophils # (Auto) (test code = 704-7) 0.0 0.0-0.1 [facility] CenterAbsolute Immature Granulocyte (auto 2019-01-09 04:08:00* Test Item Value Reference Range Interpretation Comments Absolute Immature Granulocyte (auto (bharat t code = Absolute Immature Granulocyte (auto) 0.09 0-0.1 [facility] CenterBlood Hiqrbas9134-37-23 14:39:00* Test Item Value Reference Range Interpretation Comments Blood Culture (test code = 91266501) NO GROWTH AFTER 72 HOURS [facility] CenterDifferential Total Cells Counted 2019-01-08 04:37:00* Test Item Value Reference Range Interpretation Comments Differential Total Cells Counted (test code = Differsean tial Total Cells Counted) 100 [facility] CenterNeutrophils % (Manual)2019-01-08 04:37:00 * Test Item Value Reference Range Interpretation Comments Neutrophils % (Manual) (test code = 22813-5) 91 40-74 H [facility] CenterLymphocytes % (Manual)2019-01-08 04:37:00 * Test Item Value Reference Range Interpretation Comments Lymphocytes % (Manual) (test code = 737-7) 6 19-48 L [facility] CenterMonocytes % (Manual)2019-01-08 04:37:00* Test Item Value Reference Range Interpretation Comments Monocytes % (Manual) (test code = 744-3) 3 3.4-9.0 L [facility] CenterPlatelet Icklooin5808-81-88 04:37:00* Test Item Value Reference Range Interpretation Comments Platelet Estimate (test code = 26727-9) ADEQUATE [facility] CenterPlatelet Morphology Nmvfxie8619-02-25 04:37:00* Test Item Value Reference Range Interpretation Comments Platelet Morphology Comment (test code = 90047-5) NORMAL [facility] CenterRed Cell Morphology Juqvadt8841-27-50 04:37:00* Test Item Value Reference Range Interpretation Comments Red Cell Morphology Comment (test code = 6742-1) NORMAL [facility] CenterDifferential Total Cells Counted 2019-01-08 04:37:00* Test Item Value Reference Range Interpretation Comments Differential Total Cells Counted (test code = Differen tial Total Cells Counted) 100 [facility] CenterNeutrophils % (Manual)2019-01-08 04:37:00 * Test Item Value Reference Range Interpretation Comments Neutrophils % (Manual) (test code = 88339-9) 91 40-74 H [facility] CenterLymphocytes % (Manual)2019-01-08 04:37:00 * Test Item Value Reference Range Interpretation Comments Lymphocytes % (Manual) (test code = 737-7) 6 19-48 L [facility] CenterMonocytes % (Manual)2019-01-08 04:37:00* Test Item Value Reference Range Interpretation Comments Monocytes % (Manual) (test code = 744-3) 3 3.4-9.0 L [facility] CenterPlatelet Sfszrtnj4199-46-37 04:37:00* Test Item Value Reference Range Interpretation Comments Platelet Estimate (test code = 81246-3) ADEQUATE [facility] CenterPlatelet Morphology Aewlkzs7289-22-82 04:37:00* Test Item Value Reference Range Interpretation Comments Platelet Morphology Comment (test code = 76927-6) NORMAL [facility] CenterRed Cell Morphology Rbwkxft6986-42-75 04:37:00* Test Item Value Reference Range Interpretation Comments Red Cell Morphology Comment (test code = 6742-1) NORMAL [facility] CenterDifferential Total Cells Counted 2019-01-08 04:37:00* Test Item Value Reference Range Interpretation Comments Differential Total Cells Counted (test code = Differen tial Total Cells Counted) 100 [facility] CenterNeutrophils % (Manual)2019-01-08 04:37:00 * Test Item Value Reference Range Interpretation Comments Neutrophils % (Manual) (test code = 91195-8) 91 40-74 H [facility] CenterLymphocytes % (Manual)2019-01-08 04:37:00 * Test Item Value Reference Range Interpretation Comments Lymphocytes % (Manual) (test code = 737-7) 6 19-48 L [facility] CenterMonocytes % (Manual)2019-01-08 04:37:00* Test Item Value Reference Range Interpretation Comments Monocytes % (Manual) (test code = 744-3) 3 3.4-9.0 L [facility] CenterPlatelet Uciyhfme7114-93-02 04:37:00* Test Item Value Reference Range Interpretation Comments Platelet Estimate (test code = 03105-7) ADEQUATE [facility] CenterPlatelet Morphology Ccyqhwu7356-66-21 04:37:00* Test Item Value Reference Range Interpretation Comments Platelet Morphology Comment (test code = 41496-1) NORMAL [facility] CenterRed Cell Morphology Vwymfog6649-41-93 04:37:00* Test Item Value Reference Range Interpretation Comments Red Cell Morphology Comment (test code = 6742-1) NORMAL [facility] CenterDifferential Total Cells Counted 2019-01-08 04:37:00* Test Item Value Reference Range Interpretation Comments Differential Total Cells Counted (test code = Eduardo deleon Total Cells Counted) 100 [facility] CenterNeutrophils % (Manual)2019-01-08 04:37:00 * Test Item Value Reference Range Interpretation Comments Neutrophils % (Manual) (test code = 76716-8) 91 40-74 H [facility] CenterLymphocytes % (Manual)2019-01-08 04:37:00 * Test Item Value Reference Range Interpretation Comments Lymphocytes % (Manual) (test code = 737-7) 6 19-48 L [facility] CenterMonocytes % (Manual)2019-01-08 04:37:00* Test Item Value Reference Range Interpretation Comments Monocytes % (Manual) (test code = 744-3) 3 3.4-9.0 L [facility] CenterPlatelet Kjswnpos4120-42-74 04:37:00* Test Item Value Reference Range Interpretation Comments Platelet Estimate (test code = 56681-5) ADEQUATE [facility] CenterPlatelet Morphology Tzpoedz9585-71-79 04:37:00* Test Item Value Reference Range Interpretation Comments Platelet Morphology Comment (test code = 89644-4) NORMAL [facility] CenterRed Cell Morphology Eefcoxc3828-72-86 04:37:00* Test Item Value Reference Range Interpretation Comments Red Cell Morphology Comment (test code = 6742-1) NORMAL [facility] CenterDifferential Total Cells Counted 2019-01-08 04:37:00* Test Item Value Reference Range Interpretation Comments Differential Total Cells Counted (test code = Differsean tial Total Cells Counted) 100 [facility] CenterNeutrophils % (Manual)2019-01-08 04:37:00 * Test Item Value Reference Range Interpretation Comments Neutrophils % (Manual) (test code = 99363-8) 91 40-74 H [facility] CenterLymphocytes % (Manual)2019-01-08 04:37:00 * Test Item Value Reference Range Interpretation Comments Lymphocytes % (Manual) (test code = 737-7) 6 19-48 L [facility] CenterMonocytes % (Manual)2019-01-08 04:37:00* Test Item Value Reference Range Interpretation Comments Monocytes % (Manual) (test code = 744-3) 3 3.4-9.0 L [facility] CenterPlatelet Gieozrfa1471-85-54 04:37:00* Test Item Value Reference Range Interpretation Comments Platelet Estimate (test code = 63275-4) ADEQUATE [facility] CenterPlatelet Morphology Hkeayrl8603-85-73 04:37:00* Test Item Value Reference Range Interpretation Comments Platelet Morphology Comment (test code = 70893-6) NORMAL [facility] CenterRed Cell Morphology Osklffz3439-49-59 04:37:00* Test Item Value Reference Range Interpretation Comments Red Cell Morphology Comment (test code = 6742-1) NORMAL [facility] CenterDifferential Total Cells Counted 2019-01-08 04:37:00* Test Item Value Reference Range Interpretation Comments Differential Total Cells Counted (test code = Differen tial Total Cells Counted) 100 [facility] CenterNeutrophils % (Manual)2019-01-08 04:37:00 * Test Item Value Reference Range Interpretation Comments Neutrophils % (Manual) (test code = 07632-3) 91 40-74 H [facility] CenterLymphocytes % (Manual)2019-01-08 04:37:00 * Test Item Value Reference Range Interpretation Comments Lymphocytes % (Manual) (test code = 737-7) 6 19-48 L [facility] CenterMonocytes % (Manual)2019-01-08 04:37:00* Test Item Value Reference Range Interpretation Comments Monocytes % (Manual) (test code = 744-3) 3 3.4-9.0 L [facility] CenterPlatelet Bfbuwihl6161-90-00 04:37:00* Test Item Value Reference Range Interpretation Comments Platelet Estimate (test code = 52572-0) ADEQUATE [facility] CenterPlatelet Morphology Udkmsdz2262-21-85 04:37:00* Test Item Value Reference Range Interpretation Comments Platelet Morphology Comment (test code = 50805-6) NORMAL [facility] CenterRed Cell Morphology Npvutqr2026-39-01 04:37:00* Test Item Value Reference Range Interpretation Comments Red Cell Morphology Comment (test code = 6742-1) NORMAL [facility] CenterDifferential Total Cells Counted 2019-01-08 04:37:00* Test Item Value Reference Range Interpretation Comments Differential Total Cells Counted (test code = Differen tial Total Cells Counted) 100 [facility] CenterNeutrophils % (Manual)2019-01-08 04:37:00 * Test Item Value Reference Range Interpretation Comments Neutrophils % (Manual) (test code = 53315-4) 91 40-74 H [facility] CenterLymphocytes % (Manual)2019-01-08 04:37:00 * Test Item Value Reference Range Interpretation Comments Lymphocytes % (Manual) (test code = 737-7) 6 19-48 L [facility] CenterMonocytes % (Manual)2019-01-08 04:37:00* Test Item Value Reference Range Interpretation Comments Monocytes % (Manual) (test code = 744-3) 3 3.4-9.0 L [facility] CenterPlatelet Ydnicvuh6151-52-41 04:37:00* Test Item Value Reference Range Interpretation Comments Platelet Estimate (test code = 58575-1) ADEQUATE [facility] CenterPlatelet Morphology Zudkarm2626-24-98 04:37:00* Test Item Value Reference Range Interpretation Comments Platelet Morphology Comment (test code = 88055-3) NORMAL [facility] CenterRed Cell Morphology Ijsygjt5869-21-30 04:37:00* Test Item Value Reference Range Interpretation Comments Red Cell Morphology Comment (test code = 6742-1) NORMAL [facility] CenterUrine RZZ7180-02-68 11:55:00* Test Item Value Reference Range Interpretation Comments Urine WBC (test code = 5821-4) 0-5 0-5 [facility] CenterUrine VGG9903-63-86 11:55:00* Test Item Value Reference Range Interpretation Comments Urine RBC (test code = 75618-7) NONE 0-5 [facility] CenterUrine Anmyuooj9142-49-24 11:55:00* Test Item Value Reference Range Interpretation Comments Urine Bacteria (test code = 28705-9) NONE NONE [facility] CenterUrine Epithelial Micmj6373-86-26 11:55:00 * Test Item Value Reference Range Interpretation Comments Urine Epithelial Cells (test code = 14073-4) MODERATE NONE [facility] CenterUrine Transitional Epithelial Cells 2019-01-07 11:55:00* Test Item Value Reference Range Interpretation Comments Urine Transitional Epithelial Cells (test code = 8249-5) RARE NONE [facility] CenterUrine Hyaline Demjv1129-69-92 11:55:00* Test Item Value Reference Range Interpretation Comments Urine Hyaline Casts (test code = 07828-4) >15 0-1 H [facility] CenterUrine Transitional Epithelial Cells 2019-01-07 11:55:00* Test Item Value Reference Range Interpretation Comments Urine Transitional Epithelial Cells (test code = 8249-5) RARE NONE [facility] CenterUrine Hyaline Vccso5269-31-25 11:55:00* Test Item Value Reference Range Interpretation Comments Urine Hyaline Casts (test code = 72984-5) >15 0-1 H [facility] CenterUrine Transitional Epithelial Cells 2019-01-07 11:55:00* Test Item Value Reference Range Interpretation Comments Urine Transitional Epithelial Cells (test code = 8249-5) RARE NONE [facility] Center[facility] Transitional Epithelial Cells 2019-01-07 11:55:00* Test Item Value Reference Range Interpretation Comments Urine Transitional Epithelial Cells (test code = 8249-5) RARE NONE [facility] Transitional Epithelial Cells 2019-01-07 11:55:00* Test Item Value Reference Range Interpretation Comments Urine Transitional Epithelial Cells (test code = 8249-5) RARE NONE [facility] Center[facility] Transitional Epithelial Cells 2019-01-07 11:55:00* Test Item Value Reference Range Interpretation Comments Urine Transitional Epithelial Cells (test code = 8249-5) RARE NONE [facility] CenterU[facility] Transitional Epithelial Cells 2019-01-07 11:55:00* Test Item Value Reference Range Interpretation Comments Urine Transitional Epithelial Cells (test code = 8249-5) RARE NONE [facility] CenterUrine Ddjac2975-77-30 11:47:00* Test Item Value Reference Range Interpretation Comments Urine Color (test code = 5778-6) STRAW YELLOW [facility] CenterUrine Opbubuh4288-35-69 11:47:00* Test Item Value Reference Range Interpretation Comments Urine Clarity (test code = 05306-4) CLEAR CLEAR [facility] CenterUrine Specific Ujrdfym1426-29-54 11:47:00 * Test Item Value Reference Range Interpretation Comments Urine Specific Devol (test code = 5811-5) 1.010 1.010-1.02 5 [facility] CenterUrine oZ7131-11-01 11:47:00* Test Item Value Reference Range Interpretation Comments Urine pH (test code = 18389-9) 6 5-7 [facility] Center[facility] Leukocyte Rotukmok9301-49-18 11:47:00* Test Item Value Reference Range Interpretation Comments Urine Leukocyte Esterase (test code = 5799-2) NEGATIVE NEGATIVE [facility] CenterU[facility] Ygxpgwx8107-19-96 11:47:00* Test Item Value Reference Range Interpretation Comments Urine Nitrite (test code = 74257-7) NEGATIVE NEGATIVE [facility] CenterU[facility] Vgqojzr5401-79-63 11:47:00* Test Item Value Reference Range Interpretation Comments Urine Protein (test code = 5804-0) NEGATIVE NEGATIVE [facility] CenterUrine Glucose (UA)2019-01-07 11:47:00* Test Item Value Reference Range Interpretation Comments Urine Glucose (UA) (test code = 2349-9) NEGATIVE NEGATIVE [facility] CenterU[facility] Vrkwhmi4855-46-57 11:47:00* Test Item Value Reference Range Interpretation Comments Urine Ketones (test code = 34429-2) NEGATIVE NEGATIVE [facility] CenterU[facility] Cjajyleocljs2656-48-19 11:47:00* Test Item Value Reference Range Interpretation Comments Urine Urobilinogen (test code = 34986-6) 0.2 0.2-1 [facility] CenterUrine Lawkyqsaq9518-60-38 11:47:00* Test Item Value Reference Range Interpretation Comments Urine Bilirubin (test code = 1978-6) NEGATIVE NEGATIVE [facility] CenterUrine Ederf0945-14-99 11:47:00* Test Item Value Reference Range Interpretation Comments Urine Blood (test code = 54231-4) NEGATIVE NEGATIVE [facility] CenterCreatine Kinase CU7335-67-24 15:17:00* Test Item Value Reference Range Interpretation Comments Creatine Kinase MB (test code = 40091-2) 2.50 0-5.0 [facility] CenterTroponin P2292-58-88 15:17:00* Test Item Value Reference Range Interpretation Comments Troponin I (test code = GEW8422) 0.005 0-0.300 [facility] CenterCreatine Dekjyt5801-65-22 15:04:00* Test Item Value Reference Range Interpretation Comments Creatine Kinase (test code = 2157-6) 66 30-200 [facility] CenterUS ABDOMEN ZBJMXBIH9074-47-48 12:01:00 [facility] [address] [address] Patient Name: STEVE BENEDICT MR #: [id number] : [birth year] Age/Sex: 73/M Req #: [id number] Adm Physician: ROSALIE MEDINA MD Ordered by: Tamela Young NP Report #: [id number] Location: MED/SURG Room/Bed: [facility] Procedure: [id number] U S/US ABDOMEN COMPLETE Exam Date: 01/06/19 Exam Time: 0900 REPORT STATUS: Signed EXAM : US ABDOMEN COMPLETE DATE: 01/06/2019 12:00 AM [...] By: ERAN on 01/06/19 1210 COPY TO: TAMELA YOUNG NP Free Cgvbiomqt0303-40-30 09:35:00* Test Item Value Reference Range Interpretation Comments Free Thyroxine (test code = 3024-7) 0.76 0.9-1.8 L [facility] CenterThyroid Stimulating Hormone (TSH) 2019-01-06 09:35:00* Test Item Value Reference Range Interpretation Comments Thyroid Stimulating Hormone (TSH) (test code = 32705-8) 0.739 0.350-4.940 [facility] CenterHemoglobin A1c Qtxptav6560-06-52 08:54:00 * Test Item Value Reference Range Interpretation Comments Hemoglobin A1c Percent (test code = Hemoglobin A1c Percent) 6.2 4.0-7.0 [facility] CenterArterial Blood sH0709-31-80 01:40:00* Test Item Value Reference Range Interpretation Comments Arterial Blood pH (test code = 2744-1) 7.35 7.31-7.41 [facility] CenterArterial Blood Partial Pressure CO2 2019-01-06 01:40:00* Test Item Value Reference Range Interpretation Comments Arterial Blood Partial Pressure CO2 (test code = 2019-8) 66 41-51 HH Results called to MELISA ORDONEZ at 2004 on 01/05/19 by Jimy Pérez. RB [place].[facility] CenterArterial Blood Partial Pressure O67032-31-09 01:40:00* Test Item Value Reference Range Interpretation Comments Arterial Blood Partial Pressure O2 (test code = 2019-8) 98 80-105 [facility] CenterArterial Blood JJU15789-54-10 01:40:00* Test Item Value Reference Range Interpretation Comments Arterial Blood HCO3 (test code = 1960-4) 36 23-28 H [facility] CenterArterial Blood Base Naafst6061-65-66 01:40:00* Test Item Value Reference Range Interpretation Comments Arterial Blood Base Excess (test code = 1925-7) 10.0 -2-3 H [facility] CenterArterial Blood Oxygen Saturation 2019-01-06 01:40:00* Test Item Value Reference Range Interpretation Comments Arterial Blood Oxygen Saturation (test code = 2708-6) 97.0 95-98 [facility] CenterFiO22019-03-13 01:40:00* Test Item Value Reference Range Interpretation Comments FiO2 (test code = FiO2) 35 PT ON 4L NC SATTING 100% HR80 OF77BRDHCA [facility] Healthcare Medical Center Arterial Blood yP7005-99-38 01:40:00* Test Item Value Reference Range Interpretation Comments Arterial Blood pH (test code = 2744-1) 7.35 7.31-7.41 [facility] CenterArterial Blood Partial Pressure CO2 2019-01-06 01:40:00* Test Item Value Reference Range Interpretation Comments Arterial Blood Partial Pressure CO2 (test code = 2019-8) 66 41-51 HH Results called to MELISA ORDONEZ at 2004 on 01/05/19 by Jimy Pérez. [place].[facility] CenterArterial Blood Partial Pressure S07578-35-95 01:40:00* Test Item Value Reference Range Interpretation Comments Arterial Blood Partial Pressure O2 (test code = 2019-8) 98 80-105 [facility] CenterArterial Blood [id number] 01:40:00* Test Item Value Reference Range Interpretation Comments Arterial Blood HCO3 (test code = 1960-4) 36 23-28 H [facility] CenterArterial Blood Base Zsqbww1653-73-06 01:40:00* Test Item Value Reference Range Interpretation Comments Arterial Blood Base Excess (test code = 1925-7) 10.0 -2-3 H [facility] CenterArterial Blood Oxygen Saturation 2019-01-06 01:40:00* Test Item Value Reference Range Interpretation Comments Arterial Blood Oxygen Saturation (test code = 2708-6) 97.0 95-98 [facility] CenterFiO22019-03-13 01:40:00* Test Item Value Reference Range Interpretation Comments FiO2 (test code = FiO2) 35 PT ON 4L NC SATTING 100% HR80 JI84XELHCA [facility] Healthcare Medical Center Arterial Blood iY0362-56-96 01:40:00* Test Item Value Reference Range Interpretation Comments Arterial Blood pH (test code = 2744-1) 7.35 7.31-7.41 [facility] CenterArterial Blood Partial Pressure CO2 2019-01-06 01:40:00* Test Item Value Reference Range Interpretation Comments Arterial Blood Partial Pressure CO2 (test code = 2018-8) 66 41-51 HH Results called to MELISA ORDONEZ at 2004 on 01/05/19 by Jimy Pérez. [place].[facility] CenterArterial Blood Partial Pressure E70941-86-20 01:40:00* Test Item Value Reference Range Interpretation Comments Arterial Blood Partial Pressure O2 (test code = 2018-8) 98 80-105 [facility] CenterArterial Blood [id number] 01:40:00* Test Item Value Reference Range Interpretation Comments Arterial Blood HCO3 (test code = 1960-4) 36 23-28 H [facility] CenterArterial Blood Base Wcrhdi1852-54-53 01:40:00* Test Item Value Reference Range Interpretation Comments Arterial Blood Base Excess (test code = 1925-7) 10.0 -2-3 H [facility] CenterArterial Blood Oxygen Saturation 2019-01-06 01:40:00* Test Item Value Reference Range Interpretation Comments Arterial Blood Oxygen Saturation (test code = 2708-6) 97.0 95-98 [facility] CenterFiO22019-03-13 01:40:00* Test Item Value Reference Range Interpretation Comments FiO2 (test code = FiO2) 35 PT ON 4L NC SATTING 100% HR80 TT72SPVHCA [facility] Center Arterial Blood [id number] 01:40:00* Test Item Value Reference Range Interpretation Comments Arterial Blood pH (test code = 2744-1) 7.35 7.31-7.41 [facility] CenterArterial Blood Partial Pressure CO2 2019-01-06 01:40:00* Test Item Value Reference Range Interpretation Comments Arterial Blood Partial Pressure CO2 (test code = 2018-) 66 41-51 HH Results called to MELISA ORDONEZ at 2004 on 01/05/19 by Jimy Pérez. [place].[facility] CenterArterial Blood Partial Pressure J39898-04-35 01:40:00* Test Item Value Reference Range Interpretation Comments Arterial Blood Partial Pressure O2 (test code = 2018-) 98 80-105 [facility] CenterArterial Blood HPR27578-42-05 01:40:00* Test Item Value Reference Range Interpretation Comments Arterial Blood HCO3 (test code = 1960-4) 36 23-28 H [facility] CenterArterial Blood Base Rrpcru8326-31-87 01:40:00* Test Item Value Reference Range Interpretation Comments Arterial Blood Base Excess (test code = 1925-7) 10.0 -2-3 H [facility] CenterArterial Blood Oxygen Saturation 2019-01-06 01:40:00* Test Item Value Reference Range Interpretation Comments Arterial Blood Oxygen Saturation (test code = 2708-6) 97.0 95-98 [facility] CenterFiO22019-03-13 01:40:00* Test Item Value Reference Range Interpretation Comments FiO2 (test code = FiO2) 35 PT ON 4L NC SATTING 100% HR80 QG08FEFHCA [facility] Center Arterial Blood tI6672-26-06 01:40:00* Test Item Value Reference Range Interpretation Comments Arterial Blood pH (test code = 2744-1) 7.35 7.31-7.41 [facility] CenterArterial Blood Partial Pressure CO2 2019-01-06 01:40:00* Test Item Value Reference Range Interpretation Comments Arterial Blood Partial Pressure CO2 (test code = 2018-8) 66 41-51 HH Results called to MELISA ORDONEZ at 2005 on 01/05/19 by Jimy Pérez. [place].[facility] CenterArterial Blood Partial Pressure A47511-45-93 01:40:00* Test Item Value Reference Range Interpretation Comments Arterial Blood Partial Pressure O2 (test code = 2019-8) 98 80-105 [facility] CenterArterial Blood FDC96363-74-09 01:40:00* Test Item Value Reference Range Interpretation Comments Arterial Blood HCO3 (test code = 1960-4) 36 23-28 H [facility] CenterArterial Blood Base Mcjzcl4388-48-81 01:40:00* Test Item Value Reference Range Interpretation Comments Arterial Blood Base Excess (test code = 1925-7) 10.0 -2-3 H [facility] CenterArterial Blood Oxygen Saturation 2019-01-06 01:40:00* Test Item Value Reference Range Interpretation Comments Arterial Blood Oxygen Saturation (test code = 2708-6) 97.0 95-98 [facility] CenterFiO22019-03-13 01:40:00* Test Item Value Reference Range Interpretation Comments FiO2 (test code = FiO2) 35 PT ON 4L NC SATTING 100% HR80 AX22MUX [facility]woodCT CHEST [id number] 21:08:00 [facility] [address] [place] [address] Patient Name: STEVE BENEDICT MR #: [id number] : 1945 Age/Sex: 73/M Req #: [id number] Adm Physician: Ordered by: TAMIE WADDELL NP Report #: [id number] Location: ER Room/Bed: Procedure: [id number] CT/CT CHEST W Exam Date: 01/05/19 Exam Time: 2004 REPORT STATUS: Signed EXAM: CT Ch est WITH contrast (PE Protocol) INDICATION: Shortness of breath NAZANIN RISON: Chest x-ray 01/05/2019 TECHNIQUE: Chest was scanned utilizing a BioDatomicsdetector helical scanner from the lung apex through [...] modulation, iterative reconstruction, and/or weight based adjustment o f the mA/kV was utilized to reduce the [...] Lobular liver contour suggestive of developing cirrhosis. Splee n is enlarged measuring 15.1 cm in AP dimension with lobulation. Multiple cyst ic lesions in the left kidney. BONES: The visualized bony thorax is withi n normal limits. Old healed left posterior rib fracture deformities. Anterior cervical fusion plate. SOFT TISSUES: Unremarkable. IMPRESSION: 1. No pulmonary emboli. 2. Severe emphysema. 3. Cirrhotic liver morphology wi th moderate splenomegaly. 4. Incompletely characterized renal cystic lesions. Recommend nonemergent renal ultrasound or CT or MR abdomen without and with c ontrast for further characterization. Signed by: Dr. Jeremias Torres M.D. on 12/25 9:13 PM Dictated By: JEREMIAS TORRES MD 12 Transcribed By: ERAN on 01/05/192112 COPY TO: TAMIE WADDELL NP CHEST SINGLE (PORTABLE)2019-01-05 17:14:00 [address] [address] Patient Name: STEVE BENEDICT MR #: [id number] : 1945 Age/Sex: 73/M Req #: [id number] Adm Physician: Ordered by: TAMIE WADDELL MACHINE [employer] Report #: [id number] Location: ER Room/Bed: Procedure: [id number] DX/CHEST SINGLE (PORTABLE) Exam Date: 01/05/19 Exam Time: 1650 REPORT STATUS: Signed EXAMINATION: CHEST SINGLE (PORTABLE) INDICATION: Retaining wate r in both legs. History of COPD and [...] for recent pneumonia. Signed by: Dr. Jeremias Torres M.D. on 019 5:15 PM Dictated By: JEREMIAS TORRES MD 14 Transcribed By: ERAN on 01/05/191714 COPY TO: TAMIE ARREGUIN NP B-Type Natriuretic Fjjjwma4862-72-98 15:08:00* Test Item Value Reference Range Interpretation Comments B-Type Natriuretic Peptide (test code = 79650-2) 344.6 0-100 H [facility] CenterCreatine Kinase PY3963-12-45 15:07:00* Test Item Value Reference Range Interpretation Comments Creatine Kinase MB (test code = 51636-7) 1.70 0-5.0 [facility] CenterTroponin [id number] 15:07:00* Test Item Value Reference Range Interpretation Comments Troponin I (test code = LIN9505) 0.015 0-0.300 [facility] Vzbhr6707-63-43 14:59:00* Test Item Value Reference Range Interpretation Comments Sodium Level (test code = 2951-2) 138 136-145 [facility] CenterPotassium Jsfpy0482-06-95 14:59:00* Test Item Value Reference Range Interpretation Comments Potassium Level (test code = 2823-3) 3.8 3.5-5.1 [facility] CenterChloride Qjxeg5458-71-53 14:59:00* Test Item Value Reference Range Interpretation Comments Chloride Level (test code = 2075-0) 93 98-107 L [facility] CenterCarbon Dioxide Ngfpc2471-74-06 14:59:00* Test Item Value Reference Range Interpretation Comments Carbon Dioxide Level (test code = 2028-9) 39 22-29 H [facility] CenterAnion Ega2684-45-00 14:59:00* Test Item Value Reference Range Interpretation Comments Anion Gap (test code = 16963-5) 9.8 8-16 [facility] CenterBlood Urea Cpyjqdfr1413-04-93 14:59:00* Test Item Value Reference Range Interpretation Comments Blood Urea Nitrogen (test code = 3094-0) 18 7-26 [facility] CenterCreatinine2019-03-12 14:59:00* Test Item Value Reference Range Interpretation Comments Creatinine (test code = 2160-0) 1.47 0.72-1.25 H [facility] CenterBUN/Creatinine Hyefq8471-75-49 14:59:00* Test Item Value Reference Range Interpretation Comments BUN/Creatinine Ratio (test code = 3097-3) 12 04-20 [facility] CenterEstimat Glomerular Filtration Rate 2019-01-05 14:59:00* Test Item Value Reference Range Interpretation Comments Estimat Glomerular Filtration Rate (test code = 086368248) 47 >60 L Ranges were taken from the National Kidney Disease Education Program and the [facility] Foundation literature.Reference ranges:60 or greater: Xmgpjf59-44 ( for 3 consecutive months): Chronic kidney disease 15 or less: Kidney failureHCA [facility] Healthcare Medical CenterGlucose Rwojz2063-44-23 14:59:00* Test Item Value Reference Range Interpretation Comments Glucose Level (test code = YZK0835) 116 74-118 [facility] CenterCalcium Xlafb1741-70-85 14:59:00* Test Item Value Reference Range Interpretation Comments Calcium Level (test code = 56270-1) 9.0 8.4-10.2 [facility] CenterTotal Hemforjcu8991-88-13 14:59:00* Test Item Value Reference Range Interpretation Comments Total Bilirubin (test code = 1975-2) 0.6 0.2-1.2 [facility] CenterAspartate Amino Transf (AST/SGOT) 2019-01-05 14:59:00* Test Item Value Reference Range Interpretation Comments Aspartate Amino Transf (AST/SGOT) (test code = Aspartate Amino Transf (AST/SGOT)) 17 -34 [facility] CenterAlanine Aminotransferase (ALT/SGPT) 2019-01-05 14:59:00* Test Item Value Reference Range Interpretation Comments Alanine Aminotransferase (ALT/SGPT) (test code = 1742-6) 14 0-55 [facility] CenterTotal Neuwslw9884-90-13 14:59:00* Test Item Value Reference Range Interpretation Comments Total Protein (test code = 2885-2) 6.6 6.5-8.1 [facility] CenterAlbumin2019-03-12 14:59:00* Test Item Value Reference Range Interpretation Comments Albumin (test code = 1751-7) 3.5 3.5-5.0 [facility] CenterGlobulin2019-03-12 14:59:00* Test Item Value Reference Range Interpretation Comments Globulin (test code = 84544-6) 3.1 2.3-3.5 [facility] CenterAlbumin/Globulin Btfne6073-71-43 14:59:00 * Test Item Value Reference Range Interpretation Comments Albumin/Globulin Ratio (test code = 1759-0) 1.1 0.8-2.0 [facility] CenterAlkaline Ozawawaqnbr2092-66-30 14:59:00* Test Item Value Reference Range Interpretation Comments Alkaline Phosphatase (test code = 6768-6) 106 40-150 [facility] CenterCreatine Vekvdn7614-69-07 14:59:00* Test Item Value Reference Range Interpretation Comments Creatine Kinase (test code = 2157-6) 83 30-200 [facility] CenterTotal Btlravryn3774-75-27 14:59:00* Test Item Value Reference Range Interpretation Comments Total Bilirubin (test code = 1975-2) 0.6 0.2-1.2 [facility] CenterAspartate Amino Transf (AST/SGOT) 2019-01-05 14:59:00* Test Item Value Reference Range Interpretation Comments Aspartate Amino Transf (AST/SGOT) (test code = Aspartate Amino Transf (AST/SGOT)) 17 5-34 [facility] CenterAlanine Aminotransferase (ALT/SGPT) 2019-01-05 14:59:00* Test Item Value Reference Range Interpretation Comments Alanine Aminotransferase (ALT/SGPT) (test code = 1742-6) 14 0-55 [facility] CenterTotal Mrhmovl9899-15-47 14:59:00* Test Item Value Reference Range Interpretation Comments Total Protein (test code = 2885-2) 6.6 6.5-8.1 [facility] CenterAlbumin2019-03-12 14:59:00* Test Item Value Reference Range Interpretation Comments Albumin (test code = 1751-7) 3.5 3.5-5.0 [facility] CenterGlobulin2019-03-12 14:59:00* Test Item Value Reference Range Interpretation Comments Globulin (test code = 01467-9) 3.1 2.3-3.5 [facility] CenterAlbumin/Globulin Uogmg3518-16-04 14:59:00 * Test Item Value Reference Range Interpretation Comments Albumin/Globulin Ratio (test code = 1759-0) 1.1 0.8-2.0 [facility] CenterAlkaline Asnvqnyrpan3262-01-45 14:59:00* Test Item Value Reference Range Interpretation Comments Alkaline Phosphatase (test code = 6768-6) 106 40-150 [facility] CenterLactic Acid Qzwvt1969-40-15 14:57:00* Test Item Value Reference Range Interpretation Comments Lactic Acid Level (test code = Lactic Acid Level) 13.5 4.5- 19.8 [facility] CenterLactic Acid Efnrs5264-09-41 14:57:00* Test Item Value Reference Range Interpretation Comments Lactic Acid Level (test code = Lactic Acid Level) 13.5 4.5- 19.8 [facility] CenterLactic Acid Qfqgt6028-76-27 14:57:00* Test Item Value Reference Range Interpretation Comments Lactic Acid Level (test code = Lactic Acid Level) 13.5 4.5- 19.8 [facility] CenterLactic Acid Dysyd2916-40-11 14:57:00* Test Item Value Reference Range Interpretation Comments Lactic Acid Level (test code = Lactic Acid Level) 13.5 4.5- 19.8 [facility] CenterProthrombin Wlth1219-64-51 14:51:00* Test Item Value Reference Range Interpretation Comments Prothrombin Time (test code = 5902-2) 16.2 11.9-14.5 H [facility] CenterProthromb Time International Ratio 2019-01-05 14:51:00* Test Item Value Reference Range Interpretation Comments Prothromb Time International Ratio (test code = 6301-6) 1.24 Oral Anticoagulant Therapy INR Values:1. Low Intensity Therapy 1.5 - 2.02 . Moderate Intensity Therapy 2.0 - 3.03. High Intensity Therapy(1) 2.5 - 3. 54. High Intensity Therapy(2) 3.0 - 4.05. Panic Value INR > 5.0 [facility] CenterActivated Partial Thromboplast Time 2019-01-05 14:51:00* Test Item Value Reference Range Interpretation Comments Activated Partial Thromboplast Time (test code = 31766-3) 38.8 23.8-35.5 H [facility] CenterProthrombin Cuhp1516-13-65 14:51:00* Test Item Value Reference Range Interpretation Comments Prothrombin Time (test code = 5902-2) 16.2 11.9-14.5 H [facility] CenterProthromb Time International Ratio 2019-01-05 14:51:00* Test Item Value Reference Range Interpretation Comments Prothromb Time International Ratio (test code = 6301-6) 1.24 Oral Anticoagulant Therapy INR Values:1. Low Intensity Therapy 1.5 - 2.02 . Moderate Intensity Therapy 2.0 - 3.03. High Intensity Therapy(1) 2.5 - 3. 54. High Intensity Therapy(2) 3.0 - 4.05. Panic Value INR > 5.0 [facility] CenterActivated Partial Thromboplast Time 2019-01-05 14:51:00* Test Item Value Reference Range Interpretation Comments Activated Partial Thromboplast Time (test code = 41429-9) 38.8 23.8-35.5 H [facility] CenterWhite Blood Ajdov1586-81-59 14:43:00* Test Item Value Reference Range Interpretation Comments White Blood Count (test code = 6690-2) 4.52 4.8-10.8 L [facility] CenterRed Blood Ibpoc2942-86-75 14:43:00* Test Item Value Reference Range Interpretation Comments Red Blood Count (test code = 789-8) 5.99 4.3-5.7 H [facility] CenterHemoglobin2019-03-12 14:43:00* Test Item Value Reference Range Interpretation Comments Hemoglobin (test code = 82755-3) 16.2 14.0-18.0 [facility] CenterHematocrit2019-03-12 14:43:00* Test Item Value Reference Range Interpretation Comments Hematocrit (test code = 4544-3) 55.5 38.2-49.6 H [facility] CenterMean Corpuscular Kvlsof0073-38-44 14:43:00* Test Item Value Reference Range Interpretation Comments Mean Corpuscular Volume (test code = 787-2) 92.7 81-99 [facility] CenterMean Corpuscular Jgeqcittyi9574-02-48 14:43:00* Test Item Value Reference Range Interpretation Comments Mean Corpuscular Hemoglobin (test code = 785-6) 27.0 28-32 L [facility] CenterMean Corpuscular Hemoglobin Concent 2019-01-05 14:43:00* Test Item Value Reference Range Interpretation Comments Mean Corpuscular Hemoglobin Concent (test code = 786-4) 29.2 31-35 L [facility] CenterRed Cell Distribution Xbrsl8697-85-77 14:43:00* Test Item Value Reference Range Interpretation Comments Red Cell Distribution Width (test code = 43601-4) 18.1 11.7 -14.4 H [facility] CenterPlatelet Klgtd1018-81-00 14:43:00* Test Item Value Reference Range Interpretation Comments Platelet Count (test code = 777-3) 171 140-360 [facility] CenterNeutrophils (%) (Auto)2019-01-05 14:43:00 * Test Item Value Reference Range Interpretation Comments Neutrophils (%) (Auto) (test code = 32512-9) 62.2 38.7-80.0 [facility] CenterLymphocytes (%) (Auto)2019-01-05 14:43:00 * Test Item Value Reference Range Interpretation Comments Lymphocytes (%) (Auto) (test code = 736-9) 17.7 18.0-39.1 L [facility] CenterMonocytes (%) (Auto)2019-01-05 14:43:00* Test Item Value Reference Range Interpretation Comments Monocytes (%) (Auto) (test code = 5905-5) 11.9 4.4-11.3 H [facility] CenterEosinophils (%) (Auto)2019-01-05 14:43:00 * Test Item Value Reference Range Interpretation Comments Eosinophils (%) (Auto) (test code = 713-8) 6.9 0.0-6.0 H [facility] CenterBasophils (%) (Auto)2019-01-05 14:43:00* Test Item Value Reference Range Interpretation Comments Basophils (%) (Auto) (test code = 706-2) 0.9 0.0-1.0 [facility] CenterIM GRANULOCYTES %2019-01-05 14:43:00* Test Item Value Reference Range Interpretation Comments IM GRANULOCYTES % (test code = IM GRANULOCYTES %) 0.4 0.0- 1.0 [facility] CenterNeutrophils # (Auto)2019-01-05 14:43:00* Test Item Value Reference Range Interpretation Comments Neutrophils # (Auto) (test code = 751-8) 2.8 2.1-6.9 [facility] CenterLymphocytes # (Auto)2019-01-05 14:43:00* Test Item Value Reference Range Interpretation Comments Lymphocytes # (Auto) (test code = 58784-5) 0.8 1.0-3.2 L [facility] CenterMonocytes # (Auto)2019-01-05 14:43:00* Test Item Value Reference Range Interpretation Comments Monocytes # (Auto) (test code = 742-7) 0.5 0.2-0.8 [facility] CenterEosinophils # (Auto)2019-01-05 14:43:00* Test Item Value Reference Range Interpretation Comments Eosinophils # (Auto) (test code = 711-2) 0.3 0.0-0.4 [facility] CenterBasophils # (Auto)2019-01-05 14:43:00* Test Item Value Reference Range Interpretation Comments Basophils # (Auto) (test code = 704-7) 0.0 0.0-0.1 [facility] CenterAbsolute Immature Granulocyte (auto 2019-01-05 14:43:00* Test Item Value Reference Range Interpretation Comments Absolute Immature Granulocyte (auto (bharat t code = Absolute Immature Granulocyte (auto) 0.02 0-0.1 [facility] EAO0795-09-76 17:11:00 [place] [address] Patient Name: STEVE BENEDICT MR #: [id number] : 1945 Age/Sex: 73/M Req #: [id number] Adm Physician: HAILEE MCGUIRE MD Ordered by: SUHAS BLACK MD Report #: [id number] Location: [facility] Room/Bed: [place] [address] Procedure: [id number] IR/S PECIAL PROCEDURE IN [facility] ORGANIST Exam Date: Exam Time: REPORT STATUS: Signed PROCEDURE : PLACEMENT OF RIGHT IJ TUNNELED SMALL BORE CATHETER WITH ULTRASOUND AND FLUOR OSCOPIC GUIDANCE INDICATION: Requiring jail IV access for antibiotics OPERATORS: Jose Manuel [...] were made using the microwire. Attention was the n turned towards the subcutaneous tunnel. After administration of 1% lidocain e subcutaneously for local anesthesia, a 6 Fr [...] prior to the procedure. The interventional team wa s concerned about the patient being off his antiplatelet therapy with a freshl y placed stent and contacted the patient's interventional [...] 1800 COPY TO: SUHAS BLACK MD Bedside Nrnpkgp7456-01-10 11:04:00* Test Item Value Reference Range Interpretation Comments Bedside Glucose (test code = 71517-4) 105 70-120 Meter ID: [id number] [facility] Glucose 2018-12-30 11:04:00* Test Item Value Reference Range Interpretation Comments Bedside Glucose (test code = 45197-0) 105 70-120 Meter ID: [id number] [facility] Healthcare [facility] CenterBlood Culture 2018-12-16 05:18:00* Test Item Value Reference Range Interpretation Comments Blood Culture (test code = 81054204) NO GROWTH AFTER 5 DAYS, [facility]AL [facility]PORT [facility]ood Qncxpsj6624-76-28 05:18:00* Test Item Value Reference Range Interpretation Comments Blood Culture (test code = 90246259) NO GROWTH AFTER 5 DAYS, FINAL REPORT [facility] CenterBedside Avkmeih5285-88-68 11:33:00* Test Item Value Reference Range Interpretation Comments Bedside Glucose (test code = 25232-5) 178 70-120 H Meter ID: [id number] Scott & White [facility] Center – College StationB-Type Natriuretic Olhpfao0897-12-95 17:13:00* Test Item Value Reference Range Interpretation Comments B-Type Natriuretic Peptide (test code = 81586-7) 103.7 0-100 H [facility] CenterB-Type Natriuretic Rwmaqtz8275-22-72 17:13:00* Test Item Value Reference Range Interpretation Comments B-Type Natriuretic Peptide (test code = 16241-2) 103.7 0-100 H [facility] Hospitalodium Lnybc5940-13-65 06:24:00* Test Item Value Reference Range Interpretation Comments Sodium Level (test code = 2951-2) 140 136-145 [facility] CenterPotassium Gqfvf6852-05-20 06:24:00* Test Item Value Reference Range Interpretation Comments Potassium Level (test code = 2823-3) 4.3 3.5-5.1 [facility] CenterChloride Uwbrh2218-41-08 06:24:00* Test Item Value Reference Range Interpretation Comments Chloride Level (test code = 2075-0) 90 98-107 L [facility] CenterCarbon Dioxide Lltww2028-76-67 06:24:00* Test Item Value Reference Range Interpretation Comments Carbon Dioxide Level (test code = 2028-9) 39 22-29 H [facility] CenterAnion Eyf3171-88-21 06:24:00* Test Item Value Reference Range Interpretation Comments Anion Gap (test code = 45962-2) 15.3 8-16 [facility] CenterBlood Urea Imkrlyao3337-64-98 06:24:00* Test Item Value Reference Range Interpretation Comments Blood Urea Nitrogen (test code = 3094-0) 34 7-26 H [facility] CenterCreatinine2019-02-18 06:24:00* Test Item Value Reference Range Interpretation Comments Creatinine (test code = 2160-0) 1.60 0.72-1.25 H [facility] CenterBUN/Creatinine Onxap6798-65-52 06:24:00* Test Item Value Reference Range Interpretation Comments BUN/Creatinine Ratio (test code = 3097-3) 21 6-25 [facility] CenterEstimat Glomerular Filtration Rate 2018-12-14 06:24:00* Test Item Value Reference Range Interpretation Comments Estimat Glomerular Filtration Rate (test code = 916940785) 42 >60 L Ranges were taken from the National Kidney Disease Education Program and the [facility] Foundation literature.Reference ranges:60 or greater: Zyrodu19-30 ( for 3 consecutive months): Chronic kidney disease 15 or less: Kidney failureHCA Houston Healthcare Medical CenterGlucose Pchmn3169-83-81 06:24:00* Test Item Value Reference Range Interpretation Comments Glucose Level (test code = PGZ3916) 150 74-118 H [facility] CenterCalcium Sobfm7946-85-69 06:24:00* Test Item Value Reference Range Interpretation Comments Calcium Level (test code = 27740-0) 9.3 8.4-10.2 [facility] Hospitalodium Rnxsw1280-20-92 06:24:00* Test Item Value Reference Range Interpretation Comments Sodium Level (test code = 2951-2) 140 136-145 [facility] CenterPotassium Otysu5598-25-02 06:24:00* Test Item Value Reference Range Interpretation Comments Potassium Level (test code = 2823-3) 4.3 3.5-5.1 [facility] CenterChloride Fyiwz3899-90-92 06:24:00* Test Item Value Reference Range Interpretation Comments Chloride Level (test code = 2075-0) 90 98-107 L [facility] CenterCarbon Dioxide Suqzw2716-62-04 06:24:00* Test Item Value Reference Range Interpretation Comments Carbon Dioxide Level (test code = 2028-9) 39 22-29 H [facility] CenterAnion Qrp3836-31-05 06:24:00* Test Item Value Reference Range Interpretation Comments Anion Gap (test code = 62765-7) 15.3 8-16 [facility] CenterBlood Urea Xroevawp4236-67-95 06:24:00* Test Item Value Reference Range Interpretation Comments Blood Urea Nitrogen (test code = 3094-0) 34 7-26 H [facility] CenterCreatinine2019-02-18 06:24:00* Test Item Value Reference Range Interpretation Comments Creatinine (test code = 2160-0) 1.60 0.72-1.25 H [facility] CenterBUN/Creatinine Xvqjn0640-79-31 06:24:00* Test Item Value Reference Range Interpretation Comments BUN/Creatinine Ratio (test code = 3097-3) 21 6-25 [facility] CenterEstimat Glomerular Filtration Rate 2018-12-14 06:24:00* Test Item Value Reference Range Interpretation Comments Estimat Glomerular Filtration Rate (test code = 984933517) 42 >60 L Ranges were taken from the National Kidney Disease Education Program and the [facility] Kid[facility] Foundation literature.Reference ranges:60 or greater: Rhvoio90-43 ( for 3 consecutive months): Chronic kidney disease 15 or less: Kidney failureHCA [facility] Healthcare Medical CenterGlucose Smucb5881-03-14 06:24:00* Test Item Value Reference Range Interpretation Comments Glucose Level (test code = UAA7386) 150 74-118 H [facility] CenterCalcium Syamj3191-49-81 06:24:00* Test Item Value Reference Range Interpretation Comments Calcium Level (test code = 78978-7) 9.3 8.4-10.2 [facility] CenterBlood Yhmkdzi5376-72-23 05:18:00* Test Item Value Reference Range Interpretation Comments Blood Culture (test code = 60670828) NO GROWTH AFTER 72 HOURS [facility] Atkxsemga6612-56-57 05:32:00* Test Item Value Reference Range Interpretation Comments Total Bilirubin (test code = 1974-2) 0.7 0.2-1.2 [facility] CenterAspartate Amino Transf (AST/SGOT) 2018-12-13 05:32:00* Test Item Value Reference Range Interpretation Comments Aspartate Amino Transf (AST/SGOT) (test code = Aspartate Amino Transf (AST/SGOT)) 13 5-34 [facility] CenterAlanine Aminotransferase (ALT/SGPT) 2018-12-13 05:32:00* Test Item Value Reference Range Interpretation Comments Alanine Aminotransferase (ALT/SGPT) (test code = 1742-6) 25 0-55 [facility] Ovidsfy7540-82-12 05:32:00* Test Item Value Reference Range Interpretation Comments Total Protein (test code = 2885-2) 6.0 6.5-8.1 L [facility] CenterAlbumin2019-02-17 05:32:00* Test Item Value Reference Range Interpretation Comments Albumin (test code = 1751-7) 3.5 3.5-5.0 [facility] CenterGlobulin2019-02-17 05:32:00* Test Item Value Reference Range Interpretation Comments Globulin (test code = 37955-2) 2.5 2.3-3.5 [facility] CenterAlbumin/Globulin Samnd4215-87-02 05:32:00 * Test Item Value Reference Range Interpretation Comments Albumin/Globulin Ratio (test code = 1759-0) 1.4 0.8-2.0 [facility] CenterAlkaline Cnxptbnlhfw3824-19-22 05:32:00* Test Item Value Reference Range Interpretation Comments Alkaline Phosphatase (test code = 6768-6) 69 40-150 [facility] Ftecdfsxp2370-04-64 05:32:00* Test Item Value Reference Range Interpretation Comments Total Bilirubin (test code = 1974-2) 0.7 0.2-1.2 [facility] CenterAspartate Amino Transf (AST/SGOT) 2018-12-13 05:32:00* Test Item Value Reference Range Interpretation Comments Aspartate Amino Transf (AST/SGOT) (test code = Aspartate Amino Transf (AST/SGOT)) 13 5-34 [facility] CenterAlanine Aminotransferase (ALT/SGPT) 2018-12-13 05:32:00* Test Item Value Reference Range Interpretation Comments Alanine Aminotransferase (ALT/SGPT) (test code = 1742-6) 25 0-55 [facility] CenterTotal Fhfyesb8530-82-41 05:32:00* Test Item Value Reference Range Interpretation Comments Total Protein (test code = 2885-2) 6.0 6.5-8.1 L [facility] CenterAlbumin2019-02-17 05:32:00* Test Item Value Reference Range Interpretation Comments Albumin (test code = 1751-7) 3.5 3.5-5.0 [facility] CenterGlobulin2019-02-17 05:32:00* Test Item Value Reference Range Interpretation Comments Globulin (test code = 54957-7) 2.5 2.3-3.5 [facility] CenterAlbumin/Globulin Bhgnq2210-38-18 05:32:00 * Test Item Value Reference Range Interpretation Comments Albumin/Globulin Ratio (test code = 1759-0) 1.4 0.8-2.0 [facility] CenterAlkaline Jtvqmpaqawn8267-28-03 05:32:00* Test Item Value Reference Range Interpretation Comments Alkaline Phosphatase (test code = 6768-6) 69 40-150 [facility] CenterWhite Blood Tymrf5584-63-27 05:08:00* Test Item Value Reference Range Interpretation Comments White Blood Count (test code = 6690-2) 8.82 4.8-10.8 [facility] CenterRed Blood Zzbnc6943-31-19 05:08:00* Test Item Value Reference Range Interpretation Comments Red Blood Count (test code = 789-8) 6.47 4.3-5.7 H [facility] CenterHemoglobin2019-02-17 05:08:00* Test Item Value Reference Range Interpretation Comments Hemoglobin (test code = 91127-9) 16.8 14.0-18.0 [facility] CenterHematocrit2019-02-17 05:08:00* Test Item Value Reference Range Interpretation Comments Hematocrit (test code = 4544-3) 55.2 38.2-49.6 H [facility] CenterMean Corpuscular Iakiiz5095-12-00 05:08:00* Test Item Value Reference Range Interpretation Comments Mean Corpuscular Volume (test code = 787-2) 85.3 81-99 [facility] CenterMean Corpuscular Dawjuchjrm1785-71-68 05:08:00* Test Item Value Reference Range Interpretation Comments Mean Corpuscular Hemoglobin (test code = 785-6) 26.0 28-32 L [facility] CenterMean Corpuscular Hemoglobin Concent 2018-12-13 05:08:00* Test Item Value Reference Range Interpretation Comments Mean Corpuscular Hemoglobin Concent (test code = 786-4) 30.4 31-35 L [facility] CenterRed Cell Distribution Czquv4852-03-62 05:08:00* Test Item Value Reference Range Interpretation Comments Red Cell Distribution Width (test code = 81789-3) 19.9 11.7 -14.4 H [facility] CenterPlatelet Lghqb2047-09-88 05:08:00* Test Item Value Reference Range Interpretation Comments Platelet Count (test code = 777-3) 198 140-360 [facility] CenterNeutrophils (%) (Auto)2018-12-13 05:08:00 * Test Item Value Reference Range Interpretation Comments Neutrophils (%) (Auto) (test code = 17158-3) 82.4 38.7-80.0 H [facility] CenterLymphocytes (%) (Auto)2018-12-13 05:08:00 * Test Item Value Reference Range Interpretation Comments Lymphocytes (%) (Auto) (test code = 736-9) 12.1 18.0-39.1 L [facility] CenterMonocytes (%) (Auto)2018-12-13 05:08:00* Test Item Value Reference Range Interpretation Comments Monocytes (%) (Auto) (test code = 5905-5) 4.9 4.4-11.3 [facility] CenterEosinophils (%) (Auto)2018-12-13 05:08:00 * Test Item Value Reference Range Interpretation Comments Eosinophils (%) (Auto) (test code = 713-8) 0.0 0.0-6.0 [facility] CenterBasophils (%) (Auto)2018-12-13 05:08:00* Test Item Value Reference Range Interpretation Comments Basophils (%) (Auto) (test code = 706-2) 0.1 0.0-1.0 [facility] CenterIM GRANULOCYTES %2018-12-13 05:08:00* Test Item Value Reference Range Interpretation Comments IM GRANULOCYTES % (test code = IM GRANULOCYTES %) 0.5 0.0- 1.0 [facility] CenterNeutrophils # (Auto)2018-12-13 05:08:00* Test Item Value Reference Range Interpretation Comments Neutrophils # (Auto) (test code = 751-8) 7.3 2.1-6.9 H [facility] CenterLymphocytes # (Auto)2018-12-13 05:08:00* Test Item Value Reference Range Interpretation Comments Lymphocytes # (Auto) (test code = 82525-6) 1.1 1.0-3.2 [facility] CenterMonocytes # (Auto)2018-12-13 05:08:00* Test Item Value Reference Range Interpretation Comments Monocytes # (Auto) (test code = 742-7) 0.4 0.2-0.8 [facility] CenterEosinophils # (Auto)2018-12-13 05:08:00* Test Item Value Reference Range Interpretation Comments Eosinophils # (Auto) (test code = 711-2) 0.0 0.0-0.4 [facility] CenterBasophils # (Auto)2018-12-13 05:08:00* Test Item Value Reference Range Interpretation Comments Basophils # (Auto) (test code = 704-7) 0.0 0.0-0.1 [facility] CenterAbsolute Immature Granulocyte (auto 2018-12-13 05:08:00* Test Item Value Reference Range Interpretation Comments Absolute Immature Granulocyte (auto (bharat t code = Absolute Immature Granulocyte (auto) 0.04 0-0.1 [facility] CenterWhite Blood Xcfbu7173-48-61 05:08:00* Test Item Value Reference Range Interpretation Comments White Blood Count (test code = 6690-2) 8.82 4.8-10.8 [facility] CenterRed Blood Azsec9409-50-04 05:08:00* Test Item Value Reference Range Interpretation Comments Red Blood Count (test code = 789-8) 6.47 4.3-5.7 H [facility] CenterHemoglobin2019-02-17 05:08:00* Test Item Value Reference Range Interpretation Comments Hemoglobin (test code = 54067-5) 16.8 14.0-18.0 [facility] CenterHematocrit2019-02-17 05:08:00* Test Item Value Reference Range Interpretation Comments Hematocrit (test code = 4544-3) 55.2 38.2-49.6 H [facility] CenterMean Corpuscular Zrtpwu4550-12-37 05:08:00* Test Item Value Reference Range Interpretation Comments Mean Corpuscular Volume (test code = 787-2) 85.3 81-99 [facility] CenterMean Corpuscular Sdbixsbzky2786-89-16 05:08:00* Test Item Value Reference Range Interpretation Comments Mean Corpuscular Hemoglobin (test code = 785-6) 26.0 28-32 L [facility] CenterMean Corpuscular Hemoglobin Concent 2018-12-13 05:08:00* Test Item Value Reference Range Interpretation Comments Mean Corpuscular Hemoglobin Concent (test code = 786-4) 30.4 31-35 L [facility] CenterRed Cell Distribution Brbxf6068-33-91 05:08:00* Test Item Value Reference Range Interpretation Comments Red Cell Distribution Width (test code = 03909-2) 19.9 11.7 -14.4 H [facility] CenterPlatelet Xffcr7402-38-56 05:08:00* Test Item Value Reference Range Interpretation Comments Platelet Count (test code = 777-3) 198 140-360 [facility] CenterNeutrophils (%) (Auto)2018-12-13 05:08:00 * Test Item Value Reference Range Interpretation Comments Neutrophils (%) (Auto) (test code = 97157-3) 82.4 38.7-80.0 H [facility] CenterLymphocytes (%) (Auto)2018-12-13 05:08:00 * Test Item Value Reference Range Interpretation Comments Lymphocytes (%) (Auto) (test code = 736-9) 12.1 18.0-39.1 L [facility] CenterMonocytes (%) (Auto)2018-12-13 05:08:00* Test Item Value Reference Range Interpretation Comments Monocytes (%) (Auto) (test code = 5905-5) 4.9 4.4-11.3 [facility] CenterEosinophils (%) (Auto)2018-12-13 05:08:00 * Test Item Value Reference Range Interpretation Comments Eosinophils (%) (Auto) (test code = 713-8) 0.0 0.0-6.0 [facility] CenterBasophils (%) (Auto)2018-12-13 05:08:00* Test Item Value Reference Range Interpretation Comments Basophils (%) (Auto) (test code = 706-2) 0.1 0.0-1.0 [facility] CenterIM GRANULOCYTES %2018-12-13 05:08:00* Test Item Value Reference Range Interpretation Comments IM GRANULOCYTES % (test code = IM GRANULOCYTES %) 0.5 0.0- 1.0 [facility] CenterNeutrophils # (Auto)2018-12-13 05:08:00* Test Item Value Reference Range Interpretation Comments Neutrophils # (Auto) (test code = 751-8) 7.3 2.1-6.9 H [facility] CenterLymphocytes # (Auto)2018-12-13 05:08:00* Test Item Value Reference Range Interpretation Comments Lymphocytes # (Auto) (test code = 61138-0) 1.1 1.0-3.2 [facility] CenterMonocytes # (Auto)2018-12-13 05:08:00* Test Item Value Reference Range Interpretation Comments Monocytes # (Auto) (test code = 742-7) 0.4 0.2-0.8 [facility] CenterEosinophils # (Auto)2018-12-13 05:08:00* Test Item Value Reference Range Interpretation Comments Eosinophils # (Auto) (test code = 711-2) 0.0 0.0-0.4 [facility] CenterBasophils # (Auto)2018-12-13 05:08:00* Test Item Value Reference Range Interpretation Comments Basophils # (Auto) (test code = 704-7) 0.0 0.0-0.1 [facility] CenterAbsolute Immature Granulocyte (auto 2018-12-13 05:08:00* Test Item Value Reference Range Interpretation Comments Absolute Immature Granulocyte (auto (bharat t code = Absolute Immature Granulocyte (auto) 0.04 0-0.1 [facility] CenterUrine Random Total Zhcuuaa6631-07-22 15:37:00* Test Item Value Reference Range Interpretation Comments Urine Random Total Protein (test code = 2888-6) 20.3 1-14 H [facility] CenterUrine Ylzxjlniji4073-66-46 15:37:00* Test Item Value Reference Range Interpretation Comments Urine Creatinine (test code = 2161-8) 48.99 63-166 L [facility] CenterUrine Protein/Creatinine Iyors3883-88-12 15:37:00* Test Item Value Reference Range Interpretation Comments Urine Protein/Creatinine Ratio (test code = 15876-3) 0.41 [facility] CenterUrine Random Total Xtdaony1314-07-34 15:37:00* Test Item Value Reference Range Interpretation Comments Urine Random Total Protein (test code = 2888-6) 20.3 1-14 H [facility] CenterUrine Olfbiplkjh6098-23-07 15:37:00* Test Item Value Reference Range Interpretation Comments Urine Creatinine (test code = 2161-8) 48.99 63-166 L [facility] CenterUrine Protein/Creatinine Annsf0674-68-48 15:37:00* Test Item Value Reference Range Interpretation Comments Urine Protein/Creatinine Ratio (test code = 29970-7) 0.41 [facility] CenterUrine Random Total Axkquyv9537-61-82 15:37:00* Test Item Value Reference Range Interpretation Comments Urine Random Total Protein (test code = 2888-6) 20.3 1-14 H [facility] CenterUrine Otipbmyjvr2866-34-07 15:37:00* Test Item Value Reference Range Interpretation Comments Urine Creatinine (test code = 2161-8) 48.99 63-166 L [facility] Protein/Creatinine Vnuvg4080-85-49 15:37:00* Test Item Value Reference Range Interpretation Comments Urine Protein/Creatinine Ratio (test code = 36670-7) 0.41 [facility] Random Total Pwdocsj3537-59-19 15:37:00* Test Item Value Reference Range Interpretation Comments Urine Random Total Protein (test code = 2888-6) 20.3 1-14 H [facility] CenterUrine Akzhfrgfgf8922-23-87 15:37:00* Test Item Value Reference Range Interpretation Comments Urine Creatinine (test code = 2161-8) 48.99 63-166 L [facility] CenterUrine Protein/Creatinine Tstay0440-14-32 15:37:00* Test Item Value Reference Range Interpretation Comments Urine Protein/Creatinine Ratio (test code = 02281-5) 0.41 [facility] CenterUrine Random Total Kfsnlls9025-29-15 15:37:00* Test Item Value Reference Range Interpretation Comments Urine Random Total Protein (test code = 2888-6) 20.3 1-14 H [facility] CenterUrine Vubagkuhee8032-01-65 15:37:00* Test Item Value Reference Range Interpretation Comments Urine Creatinine (test code = 2161-8) 48.99 63-166 L [facility] CenterUrine Protein/Creatinine Blswa5806-92-88 15:37:00* Test Item Value Reference Range Interpretation Comments Urine Protein/Creatinine Ratio (test code = 17046-6) 0.41 [facility] CenterUrine Random Total Qfzirri8447-05-83 15:37:00* Test Item Value Reference Range Interpretation Comments Urine Random Total Protein (test code = 2888-6) 20.3 1-14 H [facility] Hlsjmvymwz4999-36-89 15:37:00* Test Item Value Reference Range Interpretation Comments Urine Creatinine (test code = 2161-8) 48.99 63-166 L [facility] CenterU[facility] Protein/Creatinine Qgqrx6702-43-57 15:37:00* Test Item Value Reference Range Interpretation Comments Urine Protein/Creatinine Ratio (test code = 90482-1) 0.41 [facility] Random Total Xxaqppt9469-54-85 15:37:00* Test Item Value Reference Range Interpretation Comments Urine Random Total Protein (test code = 2888-6) 20.3 1-14 H [facility] CenterU[facility] Pjunljfabh0459-37-01 15:37:00* Test Item Value Reference Range Interpretation Comments Urine Creatinine (test code = 2161-8) 48.99 63-166 L [facility] CenterU[facility] Protein/Creatinine Wtcrs7247-32-01 15:37:00* Test Item Value Reference Range Interpretation Comments Urine Protein/Creatinine Ratio (test code = 84566-1) 0.41 [facility] Center[facility] Random Total Taazyxp8674-89-06 15:37:00* Test Item Value Reference Range Interpretation Comments Urine Random Total Protein (test code = 2888-6) 20.3 1-14 H [facility] Center[facility] Qzvwnjvtkt8045-12-99 15:37:00* Test Item Value Reference Range Interpretation Comments Urine Creatinine (test code = 2161-8) 48.99 63-166 L [facility] CenterU[facility] Protein/Creatinine Dagpx7301-90-10 15:37:00* Test Item Value Reference Range Interpretation Comments Urine Protein/Creatinine Ratio (test code = 68467-0) 0.41 [facility] Random Total Kjhoyeu5294-08-69 15:37:00* Test Item Value Reference Range Interpretation Comments Urine Random Total Protein (test code = 2888-6) 20.3 1-14 H [facility] Center[facility] Fkobxtuemr6618-98-78 15:37:00* Test Item Value Reference Range Interpretation Comments Urine Creatinine (test code = 2161-8) 48.99 63-166 L [facility] CenterU[facility] Protein/Creatinine Dqmrw7922-05-55 15:37:00* Test Item Value Reference Range Interpretation Comments Urine Protein/Creatinine Ratio (test code = 98740-6) 0.41 [facility] Hjfcn7995-17-38 14:38:00* Test Item Value Reference Range Interpretation Comments Urine Color (test code = 5778-6) YELLOW YELLOW [facility] CenterU[facility] Etixkjg1329-63-46 14:38:00* Test Item Value Reference Range Interpretation Comments Urine Clarity (test code = 56517-1) CLEAR CLEAR [facility] CenterUrine Specific [place]ut4257-03-04 14:38:00 * Test Item Value Reference Range Interpretation Comments Urine Specific Devol (test code = 5811-5) 1.010 1.010-1.02 5 [facility] CenterU[facility] yH9705-45-19 14:38:00* Test Item Value Reference Range Interpretation Comments Urine pH (test code = 07616-8) 7 5-7 [facility] Leukocyte Ruydbjzc4218-56-98 14:38:00* Test Item Value Reference Range Interpretation Comments Urine Leukocyte Esterase (test code = 5799-2) NEGATIVE NEGATIVE [facility] Center[facility] Pqystnf9001-52-57 14:38:00* Test Item Value Reference Range Interpretation Comments Urine Nitrite (test code = 40254-9) NEGATIVE NEGATIVE [facility] Center[facility] Ggnxhtb7177-97-18 14:38:00* Test Item Value Reference Range Interpretation Comments Urine Protein (test code = 5804-0) TRACE NEGATIVE H [facility] CenterU[facility] Glucose (UA)2018-12-12 14:38:00* Test Item Value Reference Range Interpretation Comments Urine Glucose (UA) (test code = 2349-9) NEGATIVE NEGATIVE [facility] Center[facility] Pbyodvn9697-05-42 14:38:00* Test Item Value Reference Range Interpretation Comments Urine Ketones (test code = 56501-9) NEGATIVE NEGATIVE [facility] Center[facility] Jakckkprjmnv4960-05-75 14:38:00* Test Item Value Reference Range Interpretation Comments Urine Urobilinogen (test code = 56287-5) 0.2 0.2-1 [facility] Rtdtvbsif2286-92-47 14:38:00* Test Item Value Reference Range Interpretation Comments Urine Bilirubin (test code = 1978-6) NEGATIVE NEGATIVE [facility] Ywqoq9871-10-98 14:38:00* Test Item Value Reference Range Interpretation Comments Urine Blood (test code = 25302-5) NEGATIVE NEGATIVE [facility] JOB8889-57-62 14:38:00* Test Item Value Reference Range Interpretation Comments Urine WBC (test code = 5821-4) 0-5 0-5 [facility] 14:38:00* Test Item Value Reference Range Interpretation Comments Urine RBC (test code = 06044-4) 0-5 0-5 [facility] Jplwsegg3835-98-59 14:38:00* Test Item Value Reference Range Interpretation Comments Urine Bacteria (test code = 90019-2) NONE NONE [facility] Center[facility] Epithelial Objpy3548-29-97 14:38:00 * Test Item Value Reference Range Interpretation Comments Urine Epithelial Cells (test code = 30806-2) FEW NONE [facility] CenterU[facility] Transitional Epithelial Cells 2018-12-12 14:38:00* Test Item Value Reference Range Interpretation Comments Urine Transitional Epithelial Cells (test code = 8249-5) FEW NONE [facility] Center[facility] Hyaline Iidxh0157-31-76 14:38:00* Test Item Value Reference Range Interpretation Comments Urine Hyaline Casts (test code = 40039-6) 6-10 0-1 H [facility] CenterU[facility] Jyftz2061-78-71 14:38:00* Test Item Value Reference Range Interpretation Comments Urine Color (test code = 5778-6) YELLOW YELLOW [facility] CenterU[facility] Pjixkpe6205-89-91 14:38:00* Test Item Value Reference Range Interpretation Comments Urine Clarity (test code = 84490-5) CLEAR CLEAR [facility] CenterU[facility] Specific Qcvwwyl6349-52-07 14:38:00 * Test Item Value Reference Range Interpretation Comments Urine Specific Devol (test code = 5811-5) 1.010 1.010-1.02 5 [facility] Center[facility] yV1276-33-66 14:38:00* Test Item Value Reference Range Interpretation Comments Urine pH (test code = 11291-6) 7 5-7 [facility] Center[facility] Leukocyte Zrmgumwg7789-67-12 14:38:00* Test Item Value Reference Range Interpretation Comments Urine Leukocyte Esterase (test code = 5799-2) NEGATIVE NEGATIVE [facility] Wvfdiqp2439-10-22 14:38:00* Test Item Value Reference Range Interpretation Comments Urine Nitrite (test code = 27714-6) NEGATIVE NEGATIVE [facility] Hdziiol4593-12-35 14:38:00* Test Item Value Reference Range Interpretation Comments Urine Protein (test code = 5804-0) TRACE NEGATIVE H [facility] CenterU[facility] Glucose (UA)2018-12-12 14:38:00* Test Item Value Reference Range Interpretation Comments Urine Glucose (UA) (test code = 2349-9) NEGATIVE NEGATIVE [facility] Center[facility] Ccxpugt6405-01-43 14:38:00* Test Item Value Reference Range Interpretation Comments Urine Ketones (test code = 09155-9) NEGATIVE NEGATIVE [facility] Center[facility] Gmuqvfrgjdvo0641-30-74 14:38:00* Test Item Value Reference Range Interpretation Comments Urine Urobilinogen (test code = 38214-1) 0.2 0.2-1 [facility] Center[facility] Jtiulnecl0409-86-12 14:38:00* Test Item Value Reference Range Interpretation Comments Urine Bilirubin (test code = 1978-6) NEGATIVE NEGATIVE [facility] Khcce0521-96-34 14:38:00* Test Item Value Reference Range Interpretation Comments Urine Blood (test code = 27778-9) NEGATIVE NEGATIVE [facility] Center[facility] PEQ8506-80-16 14:38:00* Test Item Value Reference Range Interpretation Comments Urine WBC (test code = 5821-4) 0-5 0-5 [facility] Center[facility] WOF4261-68-31 14:38:00* Test Item Value Reference Range Interpretation Comments Urine RBC (test code = 28019-4) 0-5 0-5 [facility] Center[facility] Yzxmpndk7031-97-23 14:38:00* Test Item Value Reference Range Interpretation Comments Urine Bacteria (test code = 90402-6) NONE NONE [facility] CenterU[facility] Epithelial Xukpa1443-29-77 14:38:00 * Test Item Value Reference Range Interpretation Comments Urine Epithelial Cells (test code = 30075-6) FEW NONE [facility] CenterU[facility] Transitional Epithelial Cells 2018-12-12 14:38:00* Test Item Value Reference Range Interpretation Comments Urine Transitional Epithelial Cells (test code = 8249-5) FEW NONE [facility] CenterU[facility] Hyaline Kqbsy0417-21-08 14:38:00* Test Item Value Reference Range Interpretation Comments Urine Hyaline Casts (test code = 44371-0) 6-10 0-1 H [facility] CenterU[facility] Hqele4834-10-35 14:38:00* Test Item Value Reference Range Interpretation Comments Urine Color (test code = 5778-6) YELLOW YELLOW [facility] CenterU[facility] Hdtzask4585-74-19 14:38:00* Test Item Value Reference Range Interpretation Comments Urine Clarity (test code = 55525-9) CLEAR CLEAR [facility] CenterU[facility] Specific Lioymsw7175-15-34 14:38:00 * Test Item Value Reference Range Interpretation Comments Urine Specific Devol (test code = 5811-5) 1.010 1.010-1.02 5 [facility] CenterU[facility] zW7574-97-74 14:38:00* Test Item Value Reference Range Interpretation Comments Urine pH (test code = 70278-7) 7 5-7 [facility] Center[facility] Leukocyte Oifvizrd0331-05-38 14:38:00* Test Item Value Reference Range Interpretation Comments Urine Leukocyte Esterase (test code = 5799-2) NEGATIVE NEGATIVE [facility] CenterU[facility] Mqxhkff3912-52-49 14:38:00* Test Item Value Reference Range Interpretation Comments Urine Nitrite (test code = 82870-0) NEGATIVE NEGATIVE [facility] CenterU[facility] Rzlqhij9083-74-67 14:38:00* Test Item Value Reference Range Interpretation Comments Urine Protein (test code = 5804-0) TRACE NEGATIVE H [facility] CenterU[facility] Glucose (UA)2018-12-12 14:38:00* Test Item Value Reference Range Interpretation Comments Urine Glucose (UA) (test code = 2349-9) NEGATIVE NEGATIVE [facility] CenterU[facility] Uwsubyb7097-73-08 14:38:00* Test Item Value Reference Range Interpretation Comments Urine Ketones (test code = 37457-8) NEGATIVE NEGATIVE [facility] Sjurizujqcex4475-89-40 14:38:00* Test Item Value Reference Range Interpretation Comments Urine Urobilinogen (test code = 57064-8) 0.2 0.2-1 [facility] CenterU[facility] Ijruaulou4484-09-75 14:38:00* Test Item Value Reference Range Interpretation Comments Urine Bilirubin (test code = 1978-6) NEGATIVE NEGATIVE [facility] CenterU[facility] Okiwv9961-79-97 14:38:00* Test Item Value Reference Range Interpretation Comments Urine Blood (test code = 30173-2) NEGATIVE NEGATIVE [facility] CenterU[facility] CJA4110-95-13 14:38:00* Test Item Value Reference Range Interpretation Comments Urine WBC (test code = 5821-4) 0-5 0-5 [facility] CenterU[facility] ZDN4713-13-89 14:38:00* Test Item Value Reference Range Interpretation Comments Urine RBC (test code = 28034-1) 0-5 0-5 [facility] CenterU[facility] Lavlijtz7135-48-73 14:38:00* Test Item Value Reference Range Interpretation Comments Urine Bacteria (test code = 87028-9) NONE NONE [facility] CenterU[facility] Epithelial Pstjy6723-12-03 14:38:00 * Test Item Value Reference Range Interpretation Comments Urine Epithelial Cells (test code = 42940-1) FEW NONE [facility] CenterU[facility] Transitional Epithelial Cells 2018-12-12 14:38:00* Test Item Value Reference Range Interpretation Comments Urine Transitional Epithelial Cells (test code = 8249-5) FEW NONE [facility] CenterU[facility] Hyaline Wxmis4232-75-74 14:38:00* Test Item Value Reference Range Interpretation Comments Urine Hyaline Casts (test code = 08815-0) 6-10 0-1 H [facility] CenterCreatine Kinase [id number] 19:07:00* Test Item Value Reference Range Interpretation Comments Creatine Kinase MB (test code = 39190-2) 2.40 0-5.0 [facility] CenterTroponin G5077-90-48 19:07:00* Test Item Value Reference Range Interpretation Comments Troponin I (test code = YJZ3260) 0.033 0-0.300 [facility] CenterCreatine Kinase DQ3731-28-89 19:07:00* Test Item Value Reference Range Interpretation Comments Creatine Kinase MB (test code = 51406-4) 2.40 0-5.0 [facility] CenterTroponin [id number] 19:07:00* Test Item Value Reference Range Interpretation Comments Troponin I (test code = DSL7804) 0.033 0-0.300 [facility] CenterCreatine Arxmwm5232-09-97 18:59:00* Test Item Value Reference Range Interpretation Comments Creatine Kinase (test code = 2157-6) 59 30-200 [facility] CenterCreatine Evalvr9184-19-99 18:59:00* Test Item Value Reference Range Interpretation Comments Creatine Kinase (test code = 2157-6) 59 30-200 [facility] CenterArterial Blood gU2119-16-92 05:29:00* Test Item Value Reference Range Interpretation Comments Arterial Blood pH (test code = 2744-1) 7.37 7.31-7.41 [facility] CenterArterial Blood Partial Pressure CO2 2018-12-11 05:29:00* Test Item Value Reference Range Interpretation Comments Arterial Blood Partial Pressure CO2 (test code = 2019-8) 60 41-51 H [facility] CenterArterial Blood Partial Pressure O2 2018-12-11 05:29:00* Test Item Value Reference Range Interpretation Comments Arterial Blood Partial Pressure O2 (test code = 2018-8) 74 80-105 L [facility] Blood QIC81246-51-36 05:29:00* Test Item Value Reference Range Interpretation Comments Arterial Blood HCO3 (test code = 1960-4) 34 23-28 H [facility] CenterArterial Blood Base Wbfnpa4163-19-51 05:29:00* Test Item Value Reference Range Interpretation Comments Arterial Blood Base Excess (test code = 1925-7) 10.0 -2-3 H [facility] CenterArterial Blood Oxygen Saturation 2018-12-11 05:29:00* Test Item Value Reference Range Interpretation Comments Arterial Blood Oxygen Saturation (test code = 2708-6) 94.0 95-98 L [facility] CenterFiO22019-02-15 05:29:00* Test Item Value Reference Range Interpretation Comments FiO2 (test code = FiO2) 40 PT. ON BIPAP 2 40 [facility] eV7548-44-44 05:29:00* Test Item Value Reference Range Interpretation Comments Arterial Blood pH (test code = 2744-1) 7.37 7.31-7.41 [facility] CenterArterial Blood Partial Pressure CO2 2018-12-11 05:29:00* Test Item Value Reference Range Interpretation Comments Arterial Blood Partial Pressure CO2 (test code = 2018-8) 60 41-51 H [facility] CenterArterial Blood Partial Pressure O2 2018-12-11 05:29:00* Test Item Value Reference Range Interpretation Comments Arterial Blood Partial Pressure O2 (test code = 2018-8) 74 80-105 [facility] HQT13667-94-88 05:29:00* Test Item Value Reference Range Interpretation Comments Arterial Blood HCO3 (test code = 1960-4) 34 23-28 H [facility] CenterArterial Blood Base Hrvgri9173-81-79 05:29:00* Test Item Value Reference Range Interpretation Comments Arterial Blood Base Excess (test code = 1925-7) 10.0 -2-3 H [facility] CenterArterial Blood Oxygen Saturation 2018-12-11 05:29:00* Test Item Value Reference Range Interpretation Comments Arterial Blood Oxygen Saturation (test code = 2708-6) 94.0 95-98 L [facility] CenterFiO22019-02-15 05:29:00* Test Item Value Reference Range Interpretation Comments FiO2 (test code = FiO2) 40 PT. [facility]IPAP 40 [facility] hI6578[facility]14[facility]74 05:29:00* Test Item Value Reference Range Interpretation Comments Arterial Blood pH (test code = 2744-1) 7.37 7.31-7.41 [facility] CenterAr[facility]ial Blood Partial Pressure CO2 2018-12-11 05:29:00* Test Item Value Reference Range Interpretation Comments Arterial Blood Partial Pressure CO2 (test code = 2019-8) 60 41-51 H [facility] CenterArterial Blood Partial Pressure O2 2018-12-11 05:29:00* Test Item Value Reference Range Interpretation Comments Arterial Blood Partial Pressure O2 (test code = 2019-8) 74 80-105 L [facility] Blood YGG10336-25-51 05:29:00* Test Item Value Reference Range Interpretation Comments Arterial Blood HCO3 (test code = 1960-4) 34 23-28 H [facility] CenterAr[facility]ial Blood Base Zvsrqn1748-19-35 05:29:00* Test Item Value Reference Range Interpretation Comments Arterial Blood Base Excess (test code = 1925-7) 10.0 -2-3 H [facility] CenterAr[facility]ial Blood Oxygen Saturation 2018-12-11 05:29:00* Test Item Value Reference Range Interpretation Comments Arterial Blood Oxygen Saturation (test code = 2708-6) 94.0 95-98 L [facility] CenterFiO22019-02-15 05:29:00* Test Item Value Reference Range Interpretation Comments FiO2 (test code = FiO2) 40 PT. ON BIPAP 40 [facility]-12-11 03:39:00 [facility] [address] [address] Patient Name: STEVE BENEDICT MR #: [id number] : 1945 Age/Sex: 73/M Req #: [id number] Adm Physician: Ordered by: RENAE SOLARES MD Report #: [id number] Location: ER Room/Bed: Procedure: [id number] D X/CHEST SINGLE (PORTABLE) Exam Date: 12/11/18 [...] appropriate clinical setting. Signed by: DR. Zacarias Bhagat MD on 12/11/2018 3:47 AM Dictated By: AMANDA BHAGAT MD 6 Transc ribed By: ERAN on 12/11/18346 COPY TO: RENAE SOLARES MD Lactic Acid Qlnfv9661-48-87 03:02:00* Test Item Value Reference Range Interpretation Comments Lactic Acid Level (test code = Lactic Acid Level) 15.9 4.5- 19.8 [facility] CenterLactic Acid Zakbn7644-40-84 03:02:00* Test Item Value Reference Range Interpretation Comments Lactic Acid Level (test code = Lactic Acid Level) 15.9 4.5- 19.8 [facility] CenterProthrombin Ywrk2006-39-69 03:01:00* Test Item Value Reference Range Interpretation Comments Prothrombin Time (test code = 5902-2) 18.4 11.9-14.5 H [facility] CenterProthromb Time International Ratio 2018-12-11 03:01:00* Test Item Value Reference Range Interpretation Comments Prothromb Time International Ratio (test code = 6301-6) 1.41 Oral Anticoagulant Therapy INR Values:1. Low Intensity Therapy 1.5 - 2.02 . Moderate Intensity Therapy 2.0 - 3.03. High Intensity Therapy(1) 2.5 - 3. 54. High Intensity Therapy(2) 3.0 - 4.05. Panic Value INR > 5.0 [facility] CenterActivated Partial Thromboplast Time 2018-12-11 03:01:00* Test Item Value Reference Range Interpretation Comments Activated Partial Thromboplast Time (test code = 18705-6) 38.4 23.8-35.5 H [facility] CenterProthrombin Guep4278-88-72 03:01:00* Test Item Value Reference Range Interpretation Comments Prothrombin Time (test code = 5902-2) 18.4 11.9-14.5 H [facility] CenterProthromb Time International Ratio 2018-12-11 03:01:00* Test Item Value Reference Range Interpretation Comments Prothromb Time International Ratio (test code = 6301-6) 1.41 Oral Anticoagulant Therapy INR Values:1. Low Intensity Therapy 1.5 - 2.02 . Moderate Intensity Therapy 2.0 - 3.03. High Intensity Therapy(1) 2.5 - 3. 54. High Intensity Therapy(2) 3.0 - 4.05. Panic Value INR > 5.0 [facility] CenterActivated Partial Thromboplast Time 2018-12-11 03:01:00* Test Item Value Reference Range Interpretation Comments Activated Partial Thromboplast Time (test code = 47502-3) 38.4 23.8-35.5 H [facility] CenterBedside Iwwdtdc3396-65-31 12:16:00* Test Item Value Reference Range Interpretation Comments Bedside Glucose (test code = 01039-6) 136 70-120 H Meter ID: [id number] [facility]into [facility] Hospitalodium Level 2018-11-07 05:04:00* Test Item Value Reference Range Interpretation Comments Sodium Level (test code = 2951-2) 141 136-145 [facility] CenterPotassium Fuhjv2791-54-47 05:04:00* Test Item Value Reference Range Interpretation Comments Potassium Level (test code = 2823-3) 4.3 3.5-5.1 [facility] CenterChloride Rmkvu9076-79-18 05:04:00* Test Item Value Reference Range Interpretation Comments Chloride Level (test code = 2075-0) 98 98-107 [facility] CenterCarbon Dioxide Dnmdb5579-09-97 05:04:00* Test Item Value Reference Range Interpretation Comments Carbon Dioxide Level (test code = 2028-9) 34 22-29 H [facility] CenterAnion Pjp1324-94-69 05:04:00* Test Item Value Reference Range Interpretation Comments Anion Gap (test code = 76496-5) 13.3 8-16 [facility] CenterBlood Urea Ciketonr0266-72-44 05:04:00* Test Item Value Reference Range Interpretation Comments Blood Urea Nitrogen (test code = 3094-0) 31 7-26 H [facility] CenterCreatinine2019-01-12 05:04:00* Test Item Value Reference Range Interpretation Comments Creatinine (test code = 2160-0) 1.67 0.72-1.25 H [facility] CenterBUN/Creatinine Zsgnz7120-64-59 05:04:00* Test Item Value Reference Range Interpretation Comments BUN/Creatinine Ratio (test code = 3097-3) 19 6-25 [facility] CenterEstimat Glomerular Filtration Rate 2018-11-07 05:04:00* Test Item Value Reference Range Interpretation Comments Estimat Glomerular Filtration Rate (test code = 382427866) 40 >60 L Ranges were taken from the National Kidney Disease Education Program and the [facility] Foundation literature.Reference ranges:60 or greater: Yyfank52-49 ( for 3 consecutive months): Chronic kidney disease 15 or less: Kidney failureHCA [facility] Medical CenterGlucose Yqdcg8527-22-33 05:04:00* Test Item Value Reference Range Interpretation Comments Glucose Level (test code = PNX2493) 114 74-118 [facility] CenterCalcium Mtkem3259-41-62 05:04:00* Test Item Value Reference Range Interpretation Comments Calcium Level (test code = 16430-8) 9.2 8.4-10.2 [facility] CenterWhite Blood Whmcu6682-99-82 04:35:00* Test Item Value Reference Range Interpretation Comments White Blood Count (test code = 6690-2) 10.57 4.8-10.8 [facility] CenterRed Blood Icswn4270-32-01 04:35:00* Test Item Value Reference Range Interpretation Comments Red Blood Count (test code = 789-8) 6.36 4.3-5.7 H [facility] CenterHemoglobin2019-01-12 04:35:00* Test Item Value Reference Range Interpretation Comments Hemoglobin (test code = 97118-5) 15.7 14.0-18.0 [facility] CenterHematocrit2019-01-12 04:35:00* Test Item Value Reference Range Interpretation Comments Hematocrit (test code = 4544-3) 53.4 38.2-49.6 H [facility] CenterMean Corpuscular Vojobq9483-14-66 04:35:00* Test Item Value Reference Range Interpretation Comments Mean Corpuscular Volume (test code = 787-2) 84.0 81-99 [facility] CenterMean Corpuscular Bgwzyrbplj1228-91-54 04:35:00* Test Item Value Reference Range Interpretation Comments Mean Corpuscular Hemoglobin (test code = 785-6) 24.7 28-32 L [facility] CenterMean Corpuscular Hemoglobin Concent 2018-11-07 04:35:00* Test Item Value Reference Range Interpretation Comments Mean Corpuscular Hemoglobin Concent (test code = 786-4) 29.4 31-35 L [facility] CenterRed Cell Distribution Timll6660-20-38 04:35:00* Test Item Value Reference Range Interpretation Comments Red Cell Distribution Width (test code = 88980-1) 20.8 11.7 -14.4 H [facility] CenterPlatelet Xfvtl9240-55-53 04:35:00* Test Item Value Reference Range Interpretation Comments Platelet Count (test code = 777-3) 202 140-360 [facility] [facility]Neut[facility] (%) (Auto)2018-11-07 04:35:00 * Test Item Value Reference Range Interpretation Comments Neutrophils (%) (Auto) (test code = 19734-9) 72.4 38.7-80.0 [facility] CenterLymphocytes (%) (Auto)2018-11-07 04:35:00 * Test Item Value Reference Range Interpretation Comments Lymphocytes (%) (Auto) (test code = 736-9) 14.7 18.0-39.1 L [facility] CenterMonocytes (%) (Auto)2018-11-07 04:35:00* Test Item Value Reference Range Interpretation Comments Monocytes (%) (Auto) (test code = 5905-5) 11.4 4.4-11.3 H [facility] CenterEosinophils (%) (Auto)2018-11-07 04:35:00 * Test Item Value Reference Range Interpretation Comments Eosinophils (%) (Auto) (test code = 713-8) 0.5 0.0-6.0 [facility] CenterBasophils (%) (Auto)2018-11-07 04:35:00* Test Item Value Reference Range Interpretation Comments Basophils (%) (Auto) (test code = 706-2) 0.6 0.0-1.0 [facility] CenterIM GRANULOCYTES %2018-11-07 04:35:00* Test Item Value Reference Range Interpretation Comments IM GRANULOCYTES % (test code = IM GRANULOCYTES %) 0.4 0.0- 1.0 [facility] CenterNeutrophils # (Auto)2018-11-07 04:35:00* Test Item Value Reference Range Interpretation Comments Neutrophils # (Auto) (test code = 751-8) 7.7 2.1-6.9 H [facility] CenterLymphocytes # (Auto)2018-11-07 04:35:00* Test Item Value Reference Range Interpretation Comments Lymphocytes # (Auto) (test code = 53345-8) 1.6 1.0-3.2 [facility] CenterMonocytes # (Auto)2018-11-07 04:35:00* Test Item Value Reference Range Interpretation Comments Monocytes # (Auto) (test code = 742-7) 1.2 0.2-0.8 H [facility] CenterEosinophils # (Auto)2018-11-07 04:35:00* Test Item Value Reference Range Interpretation Comments Eosinophils # (Auto) (test code = 711-2) 0.1 0.0-0.4 [facility] CenterBasophils # (Auto)2018-11-07 04:35:00* Test Item Value Reference Range Interpretation Comments Basophils # (Auto) (test code = 704-7) 0.1 0.0-0.1 [facility] CenterAbsolute Immature Granulocyte (auto 2018-11-07 04:35:00* Test Item Value Reference Range Interpretation Comments Absolute Immature Granulocyte (auto (bharat t code = Absolute Immature Granulocyte (auto) 0.04 0-0.1 [facility] CenterTotal Ibjzwiitg0384-00-52 12:54:00* Test Item Value Reference Range Interpretation Comments Total Bilirubin (test code = 1975-2) 0.5 0.2-1.2 [facility] CenterAspartate Amino Transf (AST/SGOT) 2018-11-05 12:54:00* Test Item Value Reference Range Interpretation Comments Aspartate Amino Transf (AST/SGOT) (test code = Aspartate Amino Transf (AST/SGOT)) 19 5-34 [facility] CenterAlanine Aminotransferase (ALT/SGPT) 2018-11-05 12:54:00* Test Item Value Reference Range Interpretation Comments Alanine Aminotransferase (ALT/SGPT) (test code = 1742-6) 20 0-55 [facility] CenterTotal Xjitxxg6462-30-06 12:54:00* Test Item Value Reference Range Interpretation Comments Total Protein (test code = 2885-2) 6.8 6.5-8.1 [facility] CenterAlbumin2019-01-10 12:54:00* Test Item Value Reference Range Interpretation Comments Albumin (test code = 1751-7) 4.0 3.5-5.0 [facility] CenterGlobulin2019-01-10 12:54:00* Test Item Value Reference Range Interpretation Comments Globulin (test code = 18366-2) 2.8 2.3-3.5 [facility] CenterAlbumin/Globulin Frubi9524-20-57 12:54:00 * Test Item Value Reference Range Interpretation Comments Albumin/Globulin Ratio (test code = 1759-0) 1.4 0.8-2.0 [facility] CenterAlkaline Sytldskyvje5525-46-98 12:54:00* Test Item Value Reference Range Interpretation Comments Alkaline Phosphatase (test code = 6768-6) 87 40-150 [facility] CenterProthrombin Epbb8014-71-97 12:42:00* Test Item Value Reference Range Interpretation Comments Prothrombin Time (test code = 5902-2) 13.7 11.9-14.5 [facility] CenterProthromb Time International Ratio 2018-11-05 12:42:00* Test Item Value Reference Range Interpretation Comments Prothromb Time International Ratio (test code = 6301-6) 0.96 Oral Anticoagulant Therapy INR Values:1. Low Intensity Therapy 1.5 - 2.02 . Moderate Intensity Therapy 2.0 - 3.03. High Intensity Therapy(1) 2.5 - 3. 54. High Intensity Therapy(2) 3.0 - 4.05. Panic Value INR > 5.0 [facility] CenterBlood Ejddohw2513-44-03 18:31:00* Test Item Value Reference Range Interpretation Comments Blood Culture (test code = 48048486) NO GROWTH AFTER 5 DAYS, FINAL REPORT [facility] Yrllwsq1720-00-55 13:27:00* Test Item Value Reference Range Interpretation Comments Urine Culture (test code = 630-4) Organism: ESCHERICHIA COLI-ESBL [facility] Dpuiqlm1787-55-10 13:27:00* Test Item Value Reference Range Interpretation Comments Urine Culture (test code = 630-4) Organism: ESCHERICHIA COLI-ESBL [facility] Nhbftrs9349-89-92 13:27:00* Test Item Value Reference Range Interpretation Comments Urine Culture (test code = 630-4) Organism: ESCHERICHIA COLI-ESBL [facility] Tlghpop4960-57-92 13:27:00* Test Item Value Reference Range Interpretation Comments Urine Culture (test code = 630-4) Organism: ESCHERICHIA COLI-ESBL [facility] Uunyj6719-79-42 09:35:00* Test Item Value Reference Range Interpretation Comments Sodium Level (test code = 2951-2) 138 136-145 [facility] CenterPotassium Iiobo8813-57-16 09:35:00* Test Item Value Reference Range Interpretation Comments Potassium Level (test code = 2823-3) 3.8 3.5-5.1 [facility] CenterChloride Qomxr5477-22-55 09:35:00* Test Item Value Reference Range Interpretation Comments Chloride Level (test code = 2075-0) 93 98-107 L [facility] CenterCarbon Dioxide Znrva3504-60-36 09:35:00* Test Item Value Reference Range Interpretation Comments Carbon Dioxide Level (test code = 2028-9) 36 22-29 H [facility] CenterAnion Yrw2954-46-99 09:35:00* Test Item Value Reference Range Interpretation Comments Anion Gap (test code = 53579-8) 12.8 8-16 [facility] CenterBlood Urea Tfjbqxpu9262-30-87 09:35:00* Test Item Value Reference Range Interpretation Comments Blood Urea Nitrogen (test code = 3094-0) 24 7-26 [facility] CenterCreatinine2018-11-21 09:35:00* Test Item Value Reference Range Interpretation Comments Creatinine (test code = 2160-0) 1.60 0.72-1.25 H [facility] CenterBUN/Creatinine Vjeto8528-05-82 09:35:00* Test Item Value Reference Range Interpretation Comments BUN/Creatinine Ratio (test code = 3097-3) 15 6- [facility] CenterEstimat Glomerular Filtration Rate 2018-09-16 09:35:00* Test Item Value Reference Range Interpretation Comments Estimat Glomerular Filtration Rate (test code = 403786651) 42 >60 L Ranges were taken from the National Kidney Disease Education Program and the [facility] Foundation literature.Reference ranges:60 or greater: Pbysbc73-23 ( for 3 consecutive months): Chronic kidney disease 15 or less: Kidney failureCHI [facility] KingwoodGlucose Smhhk5722-05-82 09:35:00* Test Item Value Reference Range Interpretation Comments Glucose Level (test code = NIU4994) 151 74-118 H [facility] CenterCalcium Hpslb1682-47-19 09:35:00* Test Item Value Reference Range Interpretation Comments Calcium Level (test code = 92201-9) 9.6 8.4-10.2 [facility] CenterBedside Ahtdudu4209-01-21 08:21:00* Test Item Value Reference Range Interpretation Comments Bedside Glucose (test code = 08404-4) 95 70-120 Meter ID: [id number] [facility] KingwoodMagnesium Level 2018-09-16 03:38:00* Test Item Value Reference Range Interpretation Comments Magnesium Level (test code = 79570-3) 2.3 1.3-2.1 H [facility] CenterMagnesium Hjyst5370-55-45 03:38:00* Test Item Value Reference Range Interpretation Comments Magnesium Level (test code = 23548-7) 2.3 1.3-2.1 H [facility] CenterMagnesium Nhdgg1357-24-96 03:38:00* Test Item Value Reference Range Interpretation Comments Magnesium Level (test code = 29423-2) 2.3 1.3-2.1 H [facility] CenterMagnesium Qcdvx1042-16-86 03:38:00* Test Item Value Reference Range Interpretation Comments Magnesium Level (test code = 31378-0) 2.3 1.3-2.1 H [facility] CenterMagnesium Ugasr2025-39-51 03:38:00* Test Item Value Reference Range Interpretation Comments Magnesium Level (test code = 54507-0) 2.3 1.3-2.1 H [facility] CenterWhite Blood Tjjkf2901-92-95 03:22:00* Test Item Value Reference Range Interpretation Comments White Blood Count (test code = 6690-2) 7.70 4.8-10.8 [facility] CenterRed Blood Fowhs0706-35-39 03:22:00* Test Item Value Reference Range Interpretation Comments Red Blood Count (test code = 789-8) 6.27 4.3-5.7 H [facility] CenterHemoglobin2018-11-21 03:22:00* Test Item Value Reference Range Interpretation Comments Hemoglobin (test code = 62564-9) 14.9 14.0-18.0 [facility] CenterHematocrit2018-11-21 03:22:00* Test Item Value Reference Range Interpretation Comments Hematocrit (test code = 4544-3) 52.0 38.2-49.6 H [facility] CenterMean Corpuscular Lfoifg3237-75-93 03:22:00* Test Item Value Reference Range Interpretation Comments Mean Corpuscular Volume (test code = 787-2) 82.9 81-99 [facility] CenterMean Corpuscular Mlowlbirea8968-11-87 03:22:00* Test Item Value Reference Range Interpretation Comments Mean Corpuscular Hemoglobin (test code = 785-6) 23.8 28-32 L [facility] CenterMe Corpuscular Hemoglobin Concent 2018-09-16 03:22:00* Test Item Value Reference Range Interpretation Comments Mean Corpuscular Hemoglobin Concent (test code = 786-4) 28.7 31-35 L [facility] CenterRed Cell Distribution Micpv8964-40-43 03:22:00* Test Item Value Reference Range Interpretation Comments Red Cell Distribution Width (test code = 91492-8) 18.5 11.7 -14.4 H [facility] CenterPlatelet Xyjii0943-17-69 03:22:00* Test Item Value Reference Range Interpretation Comments Platelet Count (test code = 777-3) 254 140-360 [facility] CenterNeutrophils (%) (Auto)2018-09-16 03:22:00 * Test Item Value Reference Range Interpretation Comments Neutrophils (%) (Auto) (test code = 54374-4) 66.2 38.7-80.0 [facility] CenterLymphocytes (%) (Auto)2018-09-16 03:22:00 * Test Item Value Reference Range Interpretation Comments Lymphocytes (%) (Auto) (test code = 736-9) 17.0 18.0-39.1 L [facility] CenterMonocytes (%) (Auto)2018-09-16 03:22:00* Test Item Value Reference Range Interpretation Comments Monocytes (%) (Auto) (test code = 5905-5) 12.2 4.4-11.3 H [facility] CenterEosinophils (%) (Auto)2018-09-16 03:22:00 * Test Item Value Reference Range Interpretation Comments Eosinophils (%) (Auto) (test code = 713-8) 3.2 0.0-6.0 [facility] CenterBasophils (%) (Auto)2018-09-16 03:22:00* Test Item Value Reference Range Interpretation Comments Basophils (%) (Auto) (test code = 706-2) 0.9 0.0-1.0 [facility] CenterIM GRANULOCYTES %2018-09-16 03:22:00* Test Item Value Reference Range Interpretation Comments IM GRANULOCYTES % (test code = IM GRANULOCYTES %) 0.5 0.0- 1.0 [facility] CenterNeutrophils # (Auto)2018-09-16 03:22:00* Test Item Value Reference Range Interpretation Comments Neutrophils # (Auto) (test code = 751-8) 5.1 2.1-6.9 [facility] CenterLymphocytes # (Auto)2018-09-16 03:22:00* Test Item Value Reference Range Interpretation Comments Lymphocytes # (Auto) (test code = 11896-3) 1.3 1.0-3.2 [facility] CenterMonocytes # (Auto)2018-09-16 03:22:00* Test Item Value Reference Range Interpretation Comments Monocytes # (Auto) (test code = 742-7) 0.9 0.2-0.8 H [facility] CenterEosinophils # (Auto)2018-09-16 03:22:00* Test Item Value Reference Range Interpretation Comments Eosinophils # (Auto) (test code = 711-2) 0.3 0.0-0.4 [facility] CenterBasophils # (Auto)2018-09-16 03:22:00* Test Item Value Reference Range Interpretation Comments Basophils # (Auto) (test code = 704-7) 0.1 0.0-0.1 [facility] CenterAbsolute Immature Granulocyte (auto 2018-09-16 03:22:00* Test Item Value Reference Range Interpretation Comments Absolute Immature Granulocyte (auto (bharat t code = Absolute Immature Granulocyte (auto) 0.04 0-0.1 [facility] CenterBlood Xfuscik6827-44-15 18:32:00* Test Item Value Reference Range Interpretation Comments Blood Culture (test code = 21636013) NO GROWTH AFTER 48 HOURS [facility] CenterProthrombin Qaet1533-86-81 16:25:00* Test Item Value Reference Range Interpretation Comments Prothrombin Time (test code = 5902-2) 21.4 11.9-14.5 H [facility] CenterProthromb Time International Ratio 2018-09-15 16:25:00* Test Item Value Reference Range Interpretation Comments Prothromb Time International Ratio (test code = 6301-6) 1.71 Oral Anticoagulant Therapy INR Values:1. Low Intensity Therapy 1.5 - 2.02 . Moderate Intensity Therapy 2.0 - 3.03. High Intensity Therapy(1) 2.5 - 3. 54. High Intensity Therapy(2) 3.0 - 4.05. Panic Value INR > 5.0 [facility] CenterPlatelet Qphhonjy0913-92-48 09:15:00* Test Item Value Reference Range Interpretation Comments Platelet Estimate (test code = 19789-2) ADEQUATE [facility] CenterLarge Qlfqqqwpi5479-86-48 09:15:00* Test Item Value Reference Range Interpretation Comments Large Platelets (test code = 5908-9) FEW [facility] CenterPlatelet Morphology Fkudwar0194-13-40 09:15:00* Test Item Value Reference Range Interpretation Comments Platelet Morphology Comment (test code = 85500-4) NORMAL [facility] CenterHypochromasia2018-11-20 09:15:00* Test Item Value Reference Range Interpretation Comments Hypochromasia (test code = 728-6) SLIGHT [facility] CenterOvalocytes2018-11-20 09:15:00* Test Item Value Reference Range Interpretation Comments Ovalocytes (test code = 774-0) FEW [facility] CenterRed Cell Morphology Zgffgmx8442-83-64 09:15:00* Test Item Value Reference Range Interpretation Comments Red Cell Morphology Comment (test code = 6742-1) NORMAL [facility] CenterPlatelet Xfklbufn8507-24-70 09:15:00* Test Item Value Reference Range Interpretation Comments Platelet Estimate (test code = 84403-0) ADEQUATE [facility] CenterLarge Jqqziadae5945-17-23 09:15:00* Test Item Value Reference Range Interpretation Comments Large Platelets (test code = 5908-9) FEW [facility] CenterPlatelet Morphology Hbwakxc8851-19-55 09:15:00* Test Item Value Reference Range Interpretation Comments Platelet Morphology Comment (test code = 79490-9) NORMAL [facility] CenterHypochromasia2018-11-20 09:15:00* Test Item Value Reference Range Interpretation Comments Hypochromasia (test code = 728-6) SLIGHT [facility] CenterOvalocytes2018-11-20 09:15:00* Test Item Value Reference Range Interpretation Comments Ovalocytes (test code = 774-0) FEW [facility] CenterRed Cell Morphology Ldxeimk0611-65-81 09:15:00* Test Item Value Reference Range Interpretation Comments Red Cell Morphology Comment (test code = 6742-1) NORMAL [facility] CenterPlatelet Lmmtrwmk9444-21-30 09:15:00* Test Item Value Reference Range Interpretation Comments Platelet Estimate (test code = 18303-2) ADEQUATE [facility] CenterLarge Dgefmqlxx1619-17-73 09:15:00* Test Item Value Reference Range Interpretation Comments Large Platelets (test code = 5908-9) FEW [facility] CenterPlatelet Morphology Ldjujpb6299-04-72 09:15:00* Test Item Value Reference Range Interpretation Comments Platelet Morphology Comment (test code = 57693-5) NORMAL [facility] CenterHypochromasia2018-11-20 09:15:00* Test Item Value Reference Range Interpretation Comments Hypochromasia (test code = 728-6) SLIGHT [facility] CenterOvalocytes2018-11-20 09:15:00* Test Item Value Reference Range Interpretation Comments Ovalocytes (test code = 774-0) FEW [facility] CenterRed Cell Morphology Pmjncbn4477-01-05 09:15:00* Test Item Value Reference Range Interpretation Comments Red Cell Morphology Comment (test code = 6742-1) NORMAL [facility] CenterPlatelet Tuekvlgb8515-99-86 09:15:00* Test Item Value Reference Range Interpretation Comments Platelet Estimate (test code = 34408-5) ADEQUATE [facility] CenterLarge Ioxtyeyqm1215-95-12 09:15:00* Test Item Value Reference Range Interpretation Comments Large Platelets (test code = 5908-9) FEW [facility] CenterPlatelet Morphology Xfllsaq5044-89-02 09:15:00* Test Item Value Reference Range Interpretation Comments Platelet Morphology Comment (test code = 78142-6) NORMAL [facility] CenterHypochromasia2018-11-20 09:15:00* Test Item Value Reference Range Interpretation Comments Hypochromasia (test code = 728-6) SLIGHT [facility] CenterOvalocytes2018-11-20 09:15:00* Test Item Value Reference Range Interpretation Comments Ovalocytes (test code = 774-0) FEW [facility] CenterRed Cell Morphology Utxlddd2317-53-80 09:15:00* Test Item Value Reference Range Interpretation Comments Red Cell Morphology Comment (test code = 6742-1) NORMAL [facility] CenterPlatelet Kgpqsiaz6146-66-37 09:15:00* Test Item Value Reference Range Interpretation Comments Platelet Estimate (test code = 00592-3) ADEQUATE [facility] CenterLam[facility] Lsqifjubg5917-26-18 09:15:00* Test Item Value Reference Range Interpretation Comments Large Platelets (test code = 5908-9) FEW [facility] CenterPlatelet Morphology Mhfdyum6048-67-36 09:15:00* Test Item Value Reference Range Interpretation Comments Platelet Morphology Comment (test code = 11206-2) NORMAL [facility] CenterHypochromasia2018-11-20 09:15:00* Test Item Value Reference Range Interpretation Comments Hypochromasia (test code = 728-6) SLIGHT [facility] CenterOvalocytes2018-11-20 09:15:00* Test Item Value Reference Range Interpretation Comments Ovalocytes (test code = 774-0) FEW [facility] CenterRed Cell Morphology Xvirohs6636-77-39 09:15:00* Test Item Value Reference Range Interpretation Comments Red Cell Morphology Comment (test code = 6742-1) NORMAL [facility] CenterLam[facility] Fyjkwxskk7869-08-88 09:15:00* Test Item Value Reference Range Interpretation Comments Large Platelets (test code = 5908-9) FEW [facility]pochromasia2018-11-20 09:15:00* Test Item Value Reference Range Interpretation Comments Hypochromasia (test code = 728-6) SLIGHT [facility] CenterOvalocytes2018-11-20 09:15:00* Test Item Value Reference Range Interpretation Comments Ovalocytes (test code = 774-0) FEW [facility] Qqmmcokir7817-94-76 09:15:00* Test Item Value Reference Range Interpretation Comments Large Platelets (test code = 5908-9) FEW [facility] Centerpochromasia2018-11-20 09:15:00* Test Item Value Reference Range Interpretation Comments Hypochromasia (test code = 728-6) SLIGHT [facility] CenterOvalocytes2018-11-20 09:15:00* Test Item Value Reference Range Interpretation Comments Ovalocytes (test code = 774-0) FEW [facility] Kdfhluspl5976-47-95 09:15:00* Test Item Value Reference Range Interpretation Comments Large Platelets (test code = 5908-9) FEW [facility] Centerpochromasia2018-11-20 09:15:00* Test Item Value Reference Range Interpretation Comments Hypochromasia (test code = 728-6) SLIGHT [facility] CenterOvalocytes2018-11-20 09:15:00* Test Item Value Reference Range Interpretation Comments Ovalocytes (test code = 774-0) FEW [facility] Tbtofnylq5391-61-85 09:15:00* Test Item Value Reference Range Interpretation Comments Large Platelets (test code = 5908-9) FEW [facility] Centerpochromasia2018-11-20 09:15:00* Test Item Value Reference Range Interpretation Comments Hypochromasia (test code = 728-6) SLIGHT [facility] CenterOvalocytes2018-11-20 09:15:00* Test Item Value Reference Range Interpretation Comments Ovalocytes (test code = 774-0) FEW [facility] Tomndxlfw9928-30-33 09:15:00* Test Item Value Reference Range Interpretation Comments Large Platelets (test code = 5908-9) FEW [facility] Centerpochromasia2018-11-20 09:15:00* Test Item Value Reference Range Interpretation Comments Hypochromasia (test code = 728-6) SLIGHT [facility] CenterOvalocytes2018-11-20 09:15:00* Test Item Value Reference Range Interpretation Comments Ovalocytes (test code = 774-0) FEW [facility] CenterUrine Qajqfnp4968-93-31 07:51:00* Test Item Value Reference Range Interpretation Comments Urine Culture (test code = 630-4) Organism: ESCHERICHIA COLI-ESBL [facility] CenterB-Type Natriuretic Vyvhhyb6925-22-63 07:47:00* Test Item Value Reference Range Interpretation Comments B-Type Natriuretic Peptide (test code = 48728-0) 157.9 0-100 H [facility] CenterB-Type Natriuretic Nxeamly5656-27-75 07:47:00* Test Item Value Reference Range Interpretation Comments B-Type Natriuretic Peptide (test code = 72921-8) 157.9 0-100 H [facility] CenterThyroid Stimulating Hormone (TSH) 2018-09-15 06:12:00* Test Item Value Reference Range Interpretation Comments Thyroid Stimulating Hormone (TSH) (test code = 64471-9) 1.609 0.350-4.940 [facility] CenterThyroid Stimulating Hormone (TSH) 2018-09-15 06:12:00* Test Item Value Reference Range Interpretation Comments Thyroid Stimulating Hormone (TSH) (test code = 86404-6) 1.609 0.350-4.940 [facility] CenterThyroid Stimulating Hormone (TSH) 2018-09-15 06:12:00* Test Item Value Reference Range Interpretation Comments Thyroid Stimulating Hormone (TSH) (test code = 35912-4) 1.609 0.350-4.940 [facility] CenterThyroid Stimulating Hormone (TSH) 2018-09-15 06:12:00* Test Item Value Reference Range Interpretation Comments Thyroid Stimulating Hormone (TSH) (test code = 70822-3) 1.609 0.350-4.940 [facility] CenterThyroid Stimulating Hormone (TSH) 2018-09-15 06:12:00* Test Item Value Reference Range Interpretation Comments Thyroid Stimulating Hormone (TSH) (test code = 51495-3) 1.609 0.350-4.940 [facility] CenterCreatine Kinase EI1206-20-28 14:14:00* Test Item Value Reference Range Interpretation Comments Creatine Kinase MB (test code = 80452-3) 2.60 0-5.0 [facility] CenterTroponin Q6629-15-12 14:14:00* Test Item Value Reference Range Interpretation Comments Troponin I (test code = SJO8542) 0.009 0-0.300 [facility] CenterCreatine Kinase JO1845-73-14 14:14:00* Test Item Value Reference Range Interpretation Comments Creatine Kinase MB (test code = 42972-0) 2.60 0-5.0 [place] 52899018-11-19 14:14:00* Test Item Value Reference Range Interpretation Comments Troponin I (test code = BBY3397) 0.009 0-0.300 [facility] CenterCreatine Qlspde0976-02-26 14:08:00* Test Item Value Reference Range Interpretation Comments Creatine Kinase (test code = 2157-6) 74 30-200 [facility] CenterCreatine Juxfly7464-95-36 14:08:00* Test Item Value Reference Range Interpretation Comments Creatine Kinase (test code = 2157-6) 74 30-200 [facility] CenterCHEST SINGLE (PORTABLE)2018-09-14 06:27:00 [place] [address] Patient Name: STEVE BENEDICT MR #: [id number] : 1945 Age/Sex: 73/M Req #: [id number] Adm Physician: ROSALIE MEDINA MD Ordered by: IBAN RAMOS MD Report #: [id number] Location: MED/SURG Room/Bed: [facility] Procedure: [id number] DX /CHEST SINGLE (PORTABLE) Exam Date: 09/14/18 Exam Ti me: 0530 REPORT STATUS: Signed E XAM: CHEST SINGLE (PORTABLE), AP 1 view INDICATION: Pneumonia COMPARISON: AP view of the chest September 13, 2018 FINDINGS: LINES/TUBES: None ARTI GS: Persistent left lower lobe airspace opacity PLEURA: No effusions or pn eumothorax. HEART AND MEDIASTINUM: Stable appearance BONES AND SOFT TI SSUES: No acute findings. IMPRESSION: Stable left lower lobe airspace op acity. Signed by: Dr. Alis Nguyen M.D. 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 Signed by: Dr. Alis Nguyen M.D. on 09/13/2018 7:34 PM Dictated By: ALIS NGUYEN MD 33 Transc ribed By: ERAN on 09/13/181933 COPY TO: JAIR RESENDEZ [employer]ACH[employer] Urine Vcukm2916-41-36 18:07:00* Test Item Value Reference Range Interpretation Comments Urine Color (test code = 5778-6) YELLOW YELLOW [facility] CenterUrine Cmzmonw5772-48-09 18:07:00* Test Item Value Reference Range Interpretation Comments Urine Clarity (test code = 88579-3) HAZY CLEAR [facility] CenterUrine ZAG2772-79-26 18:07:00* Test Item Value Reference Range Interpretation Comments Urine WBC (test code = 5821-4) 21-50 0-5 H [facility] CenterUrine CUX7756-74-35 18:07:00* Test Item Value Reference Range Interpretation Comments Urine RBC (test code = 33505-4) 0-5 0-5 [facility] CenterU[facility] Kdvxibcq5358-62-28 18:07:00* Test Item Value Reference Range Interpretation Comments Urine Bacteria (test code = 46512-1) MANY NONE H [facility] CenterUrine Epithelial Udjbt3302-20-57 18:07:00 * Test Item Value Reference Range Interpretation Comments Urine Epithelial Cells (test code = 10395-3) FEW NONE [facility] CenterTotal Ydxllatpx5530-21-77 18:07:00* Test Item Value Reference Range Interpretation Comments Total Bilirubin (test code = 1975-2) 0.3 0.2-1.2 [facility] CenterAspartate Amino Transf (AST/SGOT) 2018-09-13 18:07:00* Test Item Value Reference Range Interpretation Comments Aspartate Amino Transf (AST/SGOT) (test code = Aspartate Amino Transf (AST/SGOT)) 13 5-34 [facility] CenterAlanine Aminotransferase (ALT/SGPT) 2018-09-13 18:07:00* Test Item Value Reference Range Interpretation Comments Alanine Aminotransferase (ALT/SGPT) (test code = 1742-6) 18 0-55 [facility] CenterTotal Cihpwhv2183-46-98 18:07:00* Test Item Value Reference Range Interpretation Comments Total Protein (test code = 2885-2) 6.7 6.5-8.1 [facility] CenterAlbumin2018-11-18 18:07:00* Test Item Value Reference Range Interpretation Comments Albumin (test code = 1751-7) 3.3 3.5-5.0 L [facility] CenterGlobulin2018-11-18 18:07:00* Test Item Value Reference Range Interpretation Comments Globulin (test code = 57245-7) 3.4 2.3-3.5 [facility] CenterAlbumin/Globulin Jbvwv1338-13-29 18:07:00 * Test Item Value Reference Range Interpretation Comments Albumin/Globulin Ratio (test code = 1759-0) 1.0 0.8-2.0 [facility] CenterAlkaline Exgadyuigpd1366-82-91 18:07:00* Test Item Value Reference Range Interpretation Comments Alkaline Phosphatase (test code = 6768-6) 78 40-150 [facility] CenterUrine Aywuo4424-14-46 18:07:00* Test Item Value Reference Range Interpretation Comments Urine Color (test code = 5778-6) YELLOW YELLOW [facility] CenterUrine Qibrpog6447-97-11 18:07:00* Test Item Value Reference Range Interpretation Comments Urine Clarity (test code = 92848-1) HAZY CLEAR [facility] CenterUrine SJP5638-21-30 18:07:00* Test Item Value Reference Range Interpretation Comments Urine WBC (test code = 5821-4) 21-50 0-5 H [facility] CenterUrine WHQ0896-93-87 18:07:00* Test Item Value Reference Range Interpretation Comments Urine RBC (test code = 73721-4) 0-5 0-5 [facility] CenterUrine Rwowzblc3659-19-30 18:07:00* Test Item Value Reference Range Interpretation Comments Urine Bacteria (test code = 02530-1) MANY NONE H [facility] CenterUrine Epithelial Phczm2584-23-62 18:07:00 * Test Item Value Reference Range Interpretation Comments Urine Epithelial Cells (test code = 99930-4) FEW NONE [facility] CenterLactic Acid Xcnmi5938-20-63 18:05:00* Test Item Value Reference Range Interpretation Comments Lactic Acid Level (test code = Lactic Acid Level) 13.7 4.5- 19.8 [facility] CenterLactic Acid Wkgca9576-31-30 18:05:00* Test Item Value Reference Range Interpretation Comments Lactic Acid Level (test code = Lactic Acid Level) 13.7 4.5- 19.8 [facility] CenterUrine Specific Ddnvocz6044-64-46 18:04:00 * Test Item Value Reference Range Interpretation Comments Urine Specific Devol (test code = 5811-5) 1.015 1.010-1.02 5 [facility] CenterUrine cL2157-05-30 18:04:00* Test Item Value Reference Range Interpretation Comments Urine pH (test code = 18233-6) 6 5-7 [facility] CenterUrine Leukocyte Ksacudgy2603-68-94 18:04:00* Test Item Value Reference Range Interpretation Comments Urine Leukocyte Esterase (test code = 5799-2) TRACE NEGATIVE [facility] Gvwszkb7642-43-19 18:04:00* Test Item Value Reference Range Interpretation Comments Urine Nitrite (test code = 05434-1) POSITIVE NEGATIVE H [facility] CenterUrine Ryteiqs8786-39-54 18:04:00* Test Item Value Reference Range Interpretation Comments Urine Protein (test code = 5804-0) NEGATIVE NEGATIVE [facility] CenterUrine Glucose (UA)2018-09-13 18:04:00* Test Item Value Reference Range Interpretation Comments Urine Glucose (UA) (test code = 2349-9) NEGATIVE NEGATIVE [facility] CenterUrine Xqnutiz2323-75-14 18:04:00* Test Item Value Reference Range Interpretation Comments Urine Ketones (test code = 42555-5) NEGATIVE NEGATIVE [facility] CenterUrine Rglmaxpcsyvc8815-22-76 18:04:00* Test Item Value Reference Range Interpretation Comments Urine Urobilinogen (test code = 82512-9) 0.2 0.2-1 [facility] CenterUrine Uqhlavlas4312-12-37 18:04:00* Test Item Value Reference Range Interpretation Comments Urine Bilirubin (test code = 1978-6) NEGATIVE NEGATIVE [facility] CenterUrine Xxhii7234-90-38 18:04:00* Test Item Value Reference Range Interpretation Comments Urine Blood (test code = 98908-4) NEGATIVE NEGATIVE [facility] CenterUrine Specific Pngyjlv3099-27-58 18:04:00 * Test Item Value Reference Range Interpretation Comments Urine Specific Devol (test code = 5811-5) 1.015 1.010-1.02 5 [facility] CenterUrine lK6701-30-07 18:04:00* Test Item Value Reference Range Interpretation Comments Urine pH (test code = 67064-3) 6 5-7 [facility] CenterUrine Leukocyte Rlocthgu0423-85-54 18:04:00* Test Item Value Reference Range Interpretation Comments Urine Leukocyte Esterase (test code = 5799-2) TRACE NEGATIVE H [facility] CenterUrine Dcgjxxt7110-96-12 18:04:00* Test Item Value Reference Range Interpretation Comments Urine Nitrite (test code = 19214-6) POSITIVE NEGATIVE [facility] Jwwjymv2256-25-74 18:04:00* Test Item Value Reference Range Interpretation Comments Urine Protein (test code = 5804-0) NEGATIVE NEGATIVE [facility] CenterUrine Glucose (UA)2018-09-13 18:04:00* Test Item Value Reference Range Interpretation Comments Urine Glucose (UA) (test code = 2349-9) NEGATIVE NEGATIVE [facility] CenterUrine Jmksqfk1614-71-28 18:04:00* Test Item Value Reference Range Interpretation Comments Urine Ketones (test code = 81110-9) NEGATIVE NEGATIVE [facility] CenterUrine Afaljwnpgsjl8823-25-56 18:04:00* Test Item Value Reference Range Interpretation Comments Urine Urobilinogen (test code = 74230-4) 0.2 0.2-1 [facility] CenterUrine Fwgtcdhxp7199-54-66 18:04:00* Test Item Value Reference Range Interpretation Comments Urine Bilirubin (test code = 1978-6) NEGATIVE NEGATIVE [facility] CenterUrine Laept8183-17-83 18:04:00* Test Item Value Reference Range Interpretation Comments Urine Blood (test code = 03882-7) NEGATIVE NEGATIVE [facility] CenterActivated Partial Thromboplast Time 2018-09-13 18:01:00* Test Item Value Reference Range Interpretation Comments Activated Partial Thromboplast Time (test code = 10728-3) 43.2 23.8-35.5 H [facility] CenterActivated Partial Thromboplast Time 2018-09-13 18:01:00* Test Item Value Reference Range Interpretation Comments Activated Partial Thromboplast Time (test code = 07437-8) 43.2 23.8-35.5 H [facility] CenterCHEST SINGLE (PORTABLE)2018-09-13 17:32:00 [facility] [address] [place] [address] Patient Name: STEVE BENEDICT MR #: [id number] : 1945 Age/Sex: 73/M Req #: [id number] Adm Physician: Ordered by: IBAN RAMOS MD Report #: [id number] Location: ER Room/Bed: Procedure: [id number] DX/ CHEST SINGLE (PORTABLE) Exam Date: 09/13/18 Exam Matt e: 1716 REPORT STATUS: Signed EX AMINATION: [...] MD GASTRIC,BIOPSY 2018-08-21 11:54:00 RUN DATE: 08/21/18 [facility] [employer] [facility] PAGE 1 RUN TIME: 1154 Specimen Inqui ry RUN USER: INTERFACE PATIENT: STEVE BENEDICT ACCT #: V [id number] LOC: SYDNIEU U #: [id number] AGE/SX: 72/M ROOM: RE08/20/18[facility] DR: Mauro Pan MD : 43 BED: DIS: STATUS: [facility] TLOC: SPEC #: [id number] RECD: 08/20/18 STATUS: AROLDO REQ #: [id number] HAYDEN: 08/20/18 [facility] DR: Mauro Pan MD ENTERED: 08/20/18 SP TYPE: GASTRIC BX OTHR DR: Teofilo Summers MD ORDERED: GROSS COPIES TO: Mauro Pan MD [address] [place], [place] [address] Teofilo Summers MD [address] [place], [place] [address] PROCEDURES: GROSS (08/21/18) TIS SUES: 1. ANTRUM - BX CLINICAL [...] TO FOLLOW NEGATIVE FOR MALIGNANCY RRB/sm D 22610, 69 171, 80093 CONTINUED ON NEXT PAGE --------- ---RUN DATE: 08/21/18 [facility] PAGE 2 RUN TIME: 1154 Specimen Inquiry RUN USER: INTERFACE SPEC #: [id number] PATIENT: STEVE BENEDICT #[id number] (Continued) MACROSCOPIC The sp ecimen is received in formalin, labeled with the patient's name and identified as "gastric bx". It consists of ballesteros biopsy material measuring 0.5 cm in aggr egate. An H E and a Giemsa stain will be prepared. GROSS PERFORMED AT [facility] [address] [facility], [place] [address] [phone] MICROSCOPIC MICROSCOPIC PERFORMED AT [facility] All of the stains, including any controls performed, stain a ppropriately. [facility] [address] [facility], [place] [address] [phone] PERFORMING SITE Diagnosis performed at: [facility], [place] [address] [facility] [place] [address] Signed SIGNATURE ON FILE Bon Spivey 08/21/18 1154 END OF REPORT GASTRIC,JOELPM7633-07-05 11:54:00 RUN DATE: 08/25/18 [facility] - Lab PAGE 1 RUN TIME: 1157 Specimen Inqui ry RUN USER: INTERFACE PATIENT: STEVE BENEDICT ACCT #: V [id number] LOC: LALITA U #: [id number] AGE/SX: 72/M ROOM: RE08/20/18REG DR: Mauro Pan MD : 43 BED: DIS: STATUS: DEP SDC TLOC: SPEC #: [id number] RECD: 08/20/18 STATUS: AROLDO SHANNON #: [id number] HAYDEN: 08/20/18 [facility] DR: Mauro Pan MD ENTERED: 08/20/18 SP TYPE: GASTRIC BX OTHR DR: Teofilo Summers MD ORDERED: GROSS COPIES TO: Mauro Pan MD [address] [place], [place] [address] Teofilo Summers MD [address] [place], [place] [address] PROCEDURES: GROSS (08/21/18) TIS SUES: 1. ANTRUM - BX ADDENDUM FINDINGS Addendum #1 Entered: 08/25/18 Paraffin embedded tissue was submitted to [facility] for an immunoperoxidase stain for Helicobacter pylori. The slide is reviewed at [facility]. No Helicobacter organisms are identified by immunoperoxidase st aleman. The original diagnosis remains otherwise unchanged. Addendum Signed SIGN ATURE ON FILE Bon Spivey 08/25/181156 CLINICAL HISTORY COLLECTION DATE: 08/20/2018 FOLLOW UP FOR ULCERS POST-OP DIAGNOSIS: MILD GASTRITIS CONTINUE D ON NEXT PAGE RUN DATE: 08/25/18 [employer] Lab PAGE 2 RUN TIME: 1157 Specimen Inquiry RUN USER: INTERFACE SPEC #: [id number] EDIN ENT: STEVE BENEDICT #[id number] (Continued) FINAL DIAGNOSIS Gastric tissue, cold biopsy: REACTIVE GASTROPATHY SEPARATE FRAGMENTS OF GASTRIC MUCOSA WITH NO SIGNIFICANT PATHO LOGIC ALTERATION NO ACUTE INFLAMMATORY INFILTRATE PRESENT NEGATIVE FOR INTESTINAL METAPLASIA FEW COCCOID STRUCTURES IDENTIFIED BY GIEMSA ST KATHRINE IMMUNOPEROXIDASE STAIN FOR HELICOBACTER PYLORI PENDING, ADD ENDUM REPORT TO FOLLOW NEGATIVE FOR MALIGNANCY RRB/sm D 883 05, 73865, 32056 MACROSCOPIC The specimen is received in formalin, labeled with the patient's name and identified as "gastric bx". It consists o f ballesteros biopsy material measuring 0.5 cm in aggregate. An H E and a Giemsa stain will be prepared. GROSS PERFORMED AT [facility] [address] [place] [address] [phone] MICROSCOPIC MICROSCOPIC PERFORMED AT [facility] All of the sta ins, including any controls performed, stain appropriately. [facility] [address] [place] [address] [phone] PE RFORMING SITE Diagnosis performed at: [facility], [place] [address] [facility] [place] [address] CONTINUED ON NEXT PAGE RUN DATE: Theresa - Lab PAGE 3 RUN TIME: 1157 Specimen Inquiry R UN USER: INTERFACE --- ---------SPEC #: [id number] PATIENT: STEVE BENEDICT #[id number] (Continued) Signed SIGNATURE ON FILE Bon Spivey 08/21/18 1154 END OF REPORT Bedside Cylfusc1374-06-42 11:36:00* Test Item Value Reference Range Interpretation Comments Bedside Glucose (test code = 01266-9) 98 70-120 Meter ID: [id number] Pinto General Hospitalodium Level 2018-08-05 06:01:00* Test Item Value Reference Range Interpretation Comments Sodium Level (test code = 2951-2) 139 136-145 [facility] CenterPotassium Xymwl9334-05-81 06:01:00* Test Item Value Reference Range Interpretation Comments Potassium Level (test code = 2823-3) 5.3 3.5-5.1 H [facility] CenterChloride Zevaz1133-83-01 06:01:00* Test Item Value Reference Range Interpretation Comments Chloride Level (test code = 2075-0) 98 98-107 [facility] CenterCarbon Dioxide Ylyfz0833-43-87 06:01:00* Test Item Value Reference Range Interpretation Comments Carbon Dioxide Level (test code = 2028-9) 33 22-29 H [facility] CenterAnion Ozc0301-63-38 06:01:00* Test Item Value Reference Range Interpretation Comments Anion Gap (test code = 35863-5) 13.3 8-16 [facility] CenterBlood Urea Kbmvxspq4005-77-45 06:01:00* Test Item Value Reference Range Interpretation Comments Blood Urea Nitrogen (test code = 3094-0) 26 7-26 [facility] CenterCreatinine2018-10-10 06:01:00* Test Item Value Reference Range Interpretation Comments Creatinine (test code = 2160-0) 1.85 0.72-1.25 H [facility] CenterBUN/Creatinine Llcap1801-50-58 06:01:00* Test Item Value Reference Range Interpretation Comments BUN/Creatinine Ratio (test code = 3097-3) 14 6-25 [facility] CenterEstimat Glomerular Filtration Rate 2018-08-05 06:01:00* Test Item Value Reference Range Interpretation Comments Estimat Glomerular Filtration Rate (test code = 805635869) 36 >60 L Ranges were taken from the National Kidney Disease Education Program and the [facility] Kidney Foundation literature.Reference ranges:60 or greater: Ffrvpq54-96 ( for 3 consecutive months): Chronic kidney disease 15 or less: Kidney failureHCA [facility] Healthcare Medical CenterGlucose Pjczh3222-85-79 06:01:00* Test Item Value Reference Range Interpretation Comments Glucose Level (test code = JMT9267) 107 74-118 [facility] CenterCalcium Nehxa9059-69-96 06:01:00* Test Item Value Reference Range Interpretation Comments Calcium Level (test code = 15805-3) 10.0 8.4-10.2 [facility] CenterTotal Enuarlqbx5246-55-87 06:01:00* Test Item Value Reference Range Interpretation Comments Total Bilirubin (test code = 1975-2) 0.6 0.2-1.2 [facility] CenterAspartate Amino Transf (AST/SGOT) 2018-08-05 06:01:00* Test Item Value Reference Range Interpretation Comments Aspartate Amino Transf (AST/SGOT) (test code = Aspartate Amino Transf (AST/SGOT)) 15 5-34 [facility] CenterAlanine Aminotransferase (ALT/SGPT) 2018-08-05 06:01:00* Test Item Value Reference Range Interpretation Comments Alanine Aminotransferase (ALT/SGPT) (test code = 1742-6) 15 0-55 [facility] CenterTotal Fibhgwt3438-13-92 06:01:00* Test Item Value Reference Range Interpretation Comments Total Protein (test code = 2885-2) 6.3 6.5-8.1 L [facility] CenterAlbumin2018-10-10 06:01:00* Test Item Value Reference Range Interpretation Comments Albumin (test code = 1751-7) 3.5 3.5-5.0 [facility] CenterGlobulin2018-10-10 06:01:00* Test Item Value Reference Range Interpretation Comments Globulin (test code = 47182-2) 2.8 2.3-3.5 [facility] CenterAlbumin/Globulin Snsav2688-80-73 06:01:00 * Test Item Value Reference Range Interpretation Comments Albumin/Globulin Ratio (test code = 1759-0) 1.3 0.8-2.0 [facility] CenterAlkaline Xtnorirnsit8238-43-03 06:01:00* Test Item Value Reference Range Interpretation Comments Alkaline Phosphatase (test code = 6768-6) 81 40-150 [facility] CenterCreatine Jayixn0366-10-59 06:01:00* Test Item Value Reference Range Interpretation Comments Creatine Kinase (test code = 2157-6) 89 30-200 [facility] CenterProthrombin Fpms8661-36-39 05:43:00* Test Item Value Reference Range Interpretation Comments Prothrombin Time (test code = 5902-2) 27.8 11.9-14.5 H [facility] CenterProthromb Time International Ratio 2018-08-05 05:43:00* Test Item Value Reference Range Interpretation Comments Prothromb Time International Ratio (test code = 6301-6) 2.38 Oral Anticoagulant Therapy INR Values:1. Low Intensity Therapy 1.5 - 2.02 . Moderate Intensity Therapy 2.0 - 3.03. High Intensity Therapy(1) 2.5 - 3. 54. High Intensity Therapy(2) 3.0 - 4.05. Panic Value INR > 5.0 [facility] CenterPhosphorus Fjqwm2342-16-64 09:10:00* Test Item Value Reference Range Interpretation Comments Phosphorus Level (test code = GCS8359) 2.9 2.3-4.7 [facility] CenterMagnesium Ewrml7015-66-91 09:10:00* Test Item Value Reference Range Interpretation Comments Magnesium Level (test code = 20511-3) 1.8 1.3-2.1 [facility] CenterPhosphorus Bfwhg8642-98-22 09:10:00* Test Item Value Reference Range Interpretation Comments Phosphorus Level (test code = ZMV6580) 2.9 2.3-4.7 [facility] CenterPhosphorus Cdbno5317-76-53 09:10:00* Test Item Value Reference Range Interpretation Comments Phosphorus Level (test code = TZY8551) 2.9 2.3-4.7 [facility] CenterPhosphorus Jfaer0427-45-70 09:10:00* Test Item Value Reference Range Interpretation Comments Phosphorus Level (test code = FAH7726) 2.9 2.3-4.7 [facility] CenterPhosphorus Ykarn2322-98-44 09:10:00* Test Item Value Reference Range Interpretation Comments Phosphorus Level (test code = JBC2646) 2.9 2.3-4.7 [facility] CenterPhosphorus Onhyd7719-12-83 09:10:00* Test Item Value Reference Range Interpretation Comments Phosphorus Level (test code = ZUS9070) 2.9 2.3-4.7 [facility] CenterPhosphorus Qzepk1295-71-82 09:10:00* Test Item Value Reference Range Interpretation Comments Phosphorus Level (test code = EKE6042) 2.9 2.3-4.7 [facility] CenterB-Type Natriuretic Thqomyt8370-45-27 15:23:00* Test Item Value Reference Range Interpretation Comments B-Type Natriuretic Peptide (test code = 62782-5) 131.9 0-100 H [facility] CenterThyroid Stimulating Hormone (TSH) 2018-08-01 06:17:00* Test Item Value Reference Range Interpretation Comments Thyroid Stimulating Hormone (TSH) (test code = 17423-3) 1.215 0.350-4.940 [facility] CenterUrine Random Vvckedttk5677-79-09 05:42:00 * Test Item Value Reference Range Interpretation Comments Urine Random Potassium (test code = 2828-2) 24.1 [facility] CenterUrine Ykebhrazng9203-09-96 05:42:00* Test Item Value Reference Range Interpretation Comments Urine Creatinine (test code = 2161-8) 61.99 63-166 L [facility] CenterUrine Random Dldngoqiu7928-61-17 05:42:00 * Test Item Value Reference Range Interpretation Comments Urine Random Potassium (test code = 2828-2) 24.1 [facility] CenterUrine Mvwakadltr8882-05-39 05:42:00* Test Item Value Reference Range Interpretation Comments Urine Creatinine (test code = 2161-8) 61.99 63-166 L [facility] CenterUrine Random Idqynuerw4929-32-43 05:42:00 * Test Item Value Reference Range Interpretation Comments Urine Random Potassium (test code = 2828-2) 24.1 [facility] CenterUrine Jrdkdiaavx5596-59-85 05:42:00* Test Item Value Reference Range Interpretation Comments Urine Creatinine (test code = 2161-8) 61.99 63-166 L [facility] CenterUrine Random Rvwybvkta1324-18-46 05:42:00 * Test Item Value Reference Range Interpretation Comments Urine Random Potassium (test code = 2828-2) 24.1 [facility] CenterUrine Random Tjfdfiemh9795-94-66 05:42:00 * Test Item Value Reference Range Interpretation Comments Urine Random Potassium (test code = 2828-2) 24.1 [facility] CenterUrine Random Wqruofmfx6603-55-47 05:42:00 * Test Item Value Reference Range Interpretation Comments Urine Random Potassium (test code = 2828-2) 24.1 [facility] CenterUrine Random Uyrnttvwh8445-81-92 05:42:00 * Test Item Value Reference Range Interpretation Comments Urine Random Potassium (test code = 2828-2) 24.1 [facility] CenterUrine Random Bnpvaubkz7293-47-13 05:42:00 * Test Item Value Reference Range Interpretation Comments Urine Random Potassium (test code = 2828-2) 24.1 [facility] CenterUrine Random Ylvxldleb8075-95-47 05:42:00 * Test Item Value Reference Range Interpretation Comments Urine Random Potassium (test code = 2828-2) 24.1 [facility] CenterUrine Random Itvmypxai5839-92-42 05:42:00 * Test Item Value Reference Range Interpretation Comments Urine Random Potassium (test code = 2828-2) 24.1 [facility] CenterWhite Blood Mzsuu7856-94-24 05:39:00* Test Item Value Reference Range Interpretation Comments White Blood Count (test code = 6690-2) 8.09 4.8-10.8 [facility] CenterRed Blood Sfhqh1333-15-17 05:39:00* Test Item Value Reference Range Interpretation Comments Red Blood Count (test code = 789-8) 5.77 4.3-5.7 H [facility] CenterHemoglobin2018-10-06 05:39:00* Test Item Value Reference Range Interpretation Comments Hemoglobin (test code = 44231-0) 14.2 14.0-18.0 [facility] CenterHematocrit2018-10-06 05:39:00* Test Item Value Reference Range Interpretation Comments Hematocrit (test code = 4544-3) 47.5 38.2-49.6 [facility] CenterMean Corpuscular Npfxhj6677-21-53 05:39:00* Test Item Value Reference Range Interpretation Comments Mean Corpuscular Volume (test code = 787-2) 82.3 81-99 [facility] CenterMean Corpuscular Xnbzthscpv6912-41-31 05:39:00* Test Item Value Reference Range Interpretation Comments Mean Corpuscular Hemoglobin (test code = 785-6) 24.6 28-32 L [facility] CenterMean Corpuscular Hemoglobin Concent 2018-08-01 05:39:00* Test Item Value Reference Range Interpretation Comments Mean Corpuscular Hemoglobin Concent (test code = 786-4) 29.9 31-35 L [facility] CenterRed Cell Distribution Rocyp4511-24-10 05:39:00* Test Item Value Reference Range Interpretation Comments Red Cell Distribution Width (test code = 49377-8) 17.2 11.7 -14.4 H [facility] CenterPlatelet Bdcua3670-42-92 05:39:00* Test Item Value Reference Range Interpretation Comments Platelet Count (test code = 777-3) 213 140-360 [facility] CenterNeutrophils (%) (Auto)2018-08-01 05:39:00 * Test Item Value Reference Range Interpretation Comments Neutrophils (%) (Auto) (test code = 91233-2) 62.9 38.7-80.0 [facility] CenterLymphocytes (%) (Auto)2018-08-01 05:39:00 * Test Item Value Reference Range Interpretation Comments Lymphocytes (%) (Auto) (test code = 736-9) 21.4 18.0-39.1 [facility] CenterMonocytes (%) (Auto)2018-08-01 05:39:00* Test Item Value Reference Range Interpretation Comments Monocytes (%) (Auto) (test code = 5905-5) 12.4 4.4-11.3 H [facility] CenterEosinophils (%) (Auto)2018-08-01 05:39:00 * Test Item Value Reference Range Interpretation Comments Eosinophils (%) (Auto) (test code = 713-8) 2.3 0.0-6.0 [facility] CenterBasophils (%) (Auto)2018-08-01 05:39:00* Test Item Value Reference Range Interpretation Comments Basophils (%) (Auto) (test code = 706-2) 0.6 0.0-1.0 [facility] CenterIM GRANULOCYTES %2018-08-01 05:39:00* Test Item Value Reference Range Interpretation Comments IM GRANULOCYTES % (test code = IM GRANULOCYTES %) 0.4 0.0- 1.0 [facility] CenterNeutrophils # (Auto)2018-08-01 05:39:00* Test Item Value Reference Range Interpretation Comments Neutrophils # (Auto) (test code = 751-8) 5.1 2.1-6.9 [facility] CenterLymphocytes # (Auto)2018-08-01 05:39:00* Test Item Value Reference Range Interpretation Comments Lymphocytes # (Auto) (test code = 09456-6) 1.7 1.0-3.2 [facility] CenterMonocytes # (Auto)2018-08-01 05:39:00* Test Item Value Reference Range Interpretation Comments Monocytes # (Auto) (test code = 742-7) 1.0 0.2-0.8 H [facility] CenterEosinophils # (Auto)2018-08-01 05:39:00* Test Item Value Reference Range Interpretation Comments Eosinophils # (Auto) (test code = 711-2) 0.2 0.0-0.4 [facility] CenterBasophils # (Auto)2018-08-01 05:39:00* Test Item Value Reference Range Interpretation Comments Basophils # (Auto) (test code = 704-7) 0.1 0.0-0.1 [facility] CenterAbsolute Immature Granulocyte (auto 2018-08-01 05:39:00* Test Item Value Reference Range Interpretation Comments Absolute Immature Granulocyte (auto (bharat t code = Absolute Immature Granulocyte (auto) 0.03 0-0.1 [facility] CenterUrine [id number] 05:27:00* Test Item Value Reference Range Interpretation Comments Urine WBC (test code = 5821-4) 11-20 0-5 H [facility] CenterUrine [id number] 05:27:00* Test Item Value Reference Range Interpretation Comments Urine RBC (test code = 14219-2) 6-10 0-5 H [facility] CenterUrine Lxpogeyo1136-74-00 05:27:00* Test Item Value Reference Range Interpretation Comments Urine Bacteria (test code = 08491-1) FEW NONE [facility] CenterUrine Epithelial Nfcll2285-19-66 05:27:00 * Test Item Value Reference Range Interpretation Comments Urine Epithelial Cells (test code = 74409-4) FEW NONE [facility] CenterUrine Gqhtd0828-45-20 05:21:00* Test Item Value Reference Range Interpretation Comments Urine Color (test code = 5778-6) YELLOW YELLOW [facility] CenterUrine Zotaerk0832-76-14 05:21:00* Test Item Value Reference Range Interpretation Comments Urine Clarity (test code = 82433-8) CLEAR CLEAR [facility] CenterUrine Specific Nmusnca3639-78-50 05:21:00 * Test Item Value Reference Range Interpretation Comments Urine Specific Devol (test code = 5811-5) 1.010 1.010-1.02 5 [facility] CenterUrine [id number] 05:21:00* Test Item Value Reference Range Interpretation Comments Urine pH (test code = 46081-3) 6 5-7 [facility] Leukocyte Hvdbaadt9458-08-31 05:21:00* Test Item Value Reference Range Interpretation Comments Urine Leukocyte Esterase (test code = 5799-2) 1+ NEGATIVE H [facility] CenterUrine Enaaqsi3987-65-49 05:21:00* Test Item Value Reference Range Interpretation Comments Urine Nitrite (test code = 25192-5) NEGATIVE NEGATIVE [facility] CenterUrine Thtvrro5391-03-36 05:21:00* Test Item Value Reference Range Interpretation Comments Urine Protein (test code = 5804-0) NEGATIVE NEGATIVE [facility] Glucose (UA)2018-08-01 05:21:00* Test Item Value Reference Range Interpretation Comments Urine Glucose (UA) (test code = 2349-9) NEGATIVE NEGATIVE [facility] CenterUrine Dapxkid6660-72-03 05:21:00* Test Item Value Reference Range Interpretation Comments Urine Ketones (test code = 51139-0) NEGATIVE NEGATIVE [facility] Uunbnyrwgmcp8595-58-70 05:21:00* Test Item Value Reference Range Interpretation Comments Urine Urobilinogen (test code = 32472-6) 0.2 0.2-1 [facility] CenterUrine Evzmjewln9634-42-61 05:21:00* Test Item Value Reference Range Interpretation Comments Urine Bilirubin (test code = 1978-6) NEGATIVE NEGATIVE [facility] Erhqm7181-10-03 05:21:00* Test Item Value Reference Range Interpretation Comments Urine Blood (test code = 93473-7) 1+ NEGATIVE H [facility] CenterCHEST 2 KZPMO2065-58-50 16:42:00 [facility] [address] [place] [address] Patient Name: STEVE BENEDICT MR #: [id number] : 1945 Age/Sex: 72/M Req #: [id number] Adm Physician: HAILEE MCGUIRE MD Ordered by: HAILEE MCGUIRE MD Report #: [id number] Location : [facility] Room/Bed: [place] [address] Procedure: [id number] DX/C HEST 2 VIEWS Exam Date: 07/31/18 Exam Time: 1614 REPORT STATUS: Signed Frontal and lateral views of the chest, 4 total view s. HISTORY: Acute CHF COMPARISON: Chest radiograph June 05, 2017 DISCUSSION: Lungs: The lungs are hyperinflated. No evidenc e of a consolidative pneumonia or pulmonary alveolar [...] of alveolar pulmonary edema. Sig maryam by: Bhavna SellersO., M.M.M. on 07/31/2018 4:48 PM Dictated By: Lela GIRARD DO 47 Transc ribed By: ERAN on 07/31/181647 COPY TO: HAILEE MCGUIRE MD RENAL RETROPERITONEAL JYOE6810-26-27 15:30:[address] [address] Patient Name: STEVE BENEDICT MR #: [id number] : 1945 Age/Sex: 72/M Req #: [id number] Adm Physician: HAILEE MCGUIRE MD Ordered by: HAILEE MCGUIRE MD Report #: [id number] Location: [facility] Room/Bed: [place] [address] Procedure: [id number] US/U S RENAL RETROPERITONEAL COMP Exam Date: [...] Di ctated By: JOSE MANUEL PERSON MD 64 34 Transcribed By: ERAN on 07/31/18 7172 COPY TO: HAILEE MCGUIRE MD Creatine Kinase [id number] 14:46:00* Test Item Value Reference Range Interpretation Comments Creatine Kinase MB (test code = 71704-4) 15.00 0-5.0 H [facility] CenterTroponin [id number] 14:46:00* Test Item Value Reference Range Interpretation Comments Troponin I (test code = XGH1077) 0.011 0-0.300 [facility] CenterCHEM HTXRQ0637-05-26 14:28:0055[facility]annCHEM PEBKO4139-32-39 14:28:001.3[facility]annCHEM NEJKI1631-75-93 14:02:0055[facility]annCHEM ITFVM8377-15-15 14:02:001.3[facility] HermannCHEST 2 VIEWS [facility] [address] [place] [address] Patient Name: STEVE BENEDICT MR #: [id number] : 1945 Age/Sex: 71/M Req #: [id number] Adm Physician: Ordered by: TEOFILO SUMMERS Report #: [id number] Location: [facility] Room/Bed: Procedure: [id number] DX/CHEST 2 VIEWS Exam Date: Exam Time: 0858 REPORT STATUS: Signed PROCEDURE: Frontal and lateral views of the chest. COMPARISON: Portabl e chest 06/05/2017. INDICATIONS: COPD FINDINGS: Lines/tubes: None. [...]
[2020-07-30 20:35] LABS: BILIRUBIN,URINE NEGATIVE (NEGATIVE); CLARITY,URINE CLEAR (CLEAR); COLOR,URINE YELLOW (YELLOW); KETONES,URINE NEGATIVE (NEGATIVE); LEUKOCYTE ESTERASE ,URINE TRACE (NEGATIVE); NITRITE,URINE POSITIVE (NEGATIVE); PROTEIN,URINE DIPSTICK NEGATIVE (NEGATIVE); URINE UROBILINOGEN 0.2 mg/dL (0.2 - 1)
[2020-07-30 20:42] LABS: BACTERIA,URINE MANY /HPF; EPITHELIAL CELLS,URINE FEW /LPF; RBC,URINE 0-5 /HPF (0-5); RENAL EPITHELIAL CELLS,URINE FEW; TRANSITIONAL EPI CELLS,URINE FEW; WBC,URINE (MAN) >50 /HPF (0-5)
--- NOTE | 2020-07-30 21:06 | NUR ---
dr zamorano called regarding consult.
[2020-07-30] MEDS ORDERED: VANCOMYCIN 1GM/NS 250 ML 250 ML IV ONE (21:15)
[2020-07-30] MEDS: SODIUM CHLORIDE 0.9% 1000ML 1,000 ML IV SCH (21:51)
[2020-07-30 22:20] VITALS: BP 137/69
--- NOTE | 2020-07-30 22:32 | NUR ---
patient is a new admit that arrived via stretcher. patient is awake and talking. patient has been transferred into the bed. bed is in lowest position and call light is within reach. will continue to monitor patient.
[2020-07-30 23:01] VITALS: BP 137/69
[2020-07-30 23:10] VITALS: BP 137/69
--- NOTE | 2020-07-30 23:25 | NUR ---
Pulmonary consult dictated [id number] Thanks Dr Short and Dr Summers.
[2020-07-30] MEDS ORDERED: POTASSIUM CHLORIDE 10MEQ EA PO STA (23:36)
[2020-07-31] VITALS (8 sets, daily range): BP systolic 103–143; BP diastolic 64–82
[2020-07-31] MEDS ORDERED: PIPER-TAZ 3.375 GM 50 ML IV SCH
[2020-07-31] MEDS: IPRATROPIUM BROMIDE INHALER 12.9 GM INH INH SCH ×4 (01:00→19:45)
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
[2020-07-31 04:08] LABS: CREATINE KINASE MB 4.3 ng/mL (0-5.0)
[2020-07-31 04:39] LABS: ANION GAP 13.2 mmol/L (8-16); CALCIUM 9.3 mg/dL (8.4-10.2); CREATININE, SERUM 1.8 mg/dL (0.72-1.25); POTASSIUM 3.2 mmol/L (3.5-5.1)
[2020-07-31] MEDS: PIPERACILLIN/TAZO 2.25 GM 50 ML IV SCH ×3 (06:01→17:01)
[2020-07-31 06:26] LABS: BASOPHILS % 0.4 % (0.0-1.0); EOSINOPHILS # (AUTO) 0.2 (0.0-0.4); EOSINOPHILS % 2.3 % (0.0-6.0); HEMATOCRIT 29.7 % (38.2-49.6); LYMPHOCYTES # (AUTO) 0.9 (1.0-3.2); LYMPHOCYTES % 11.7 % (18.0-39.1); MEAN CORPUSCULAR HGB CONC 30.3 g/dL (31-35); MEAN CORPUSCULAR VOLUME 102.4 fL (81-99); MONOCYTES # (AUTO) 0.7 (0.2-0.8); MONOCYTES % 8.6 % (4.4-11.3); NEUTROPHILS # (AUTO) 5.9 (2.1-6.9); NEUTROPHILS % 75.7 % (38.7-80.0); PLATELET COUNT 117 x10e3/uL (140-360); RED CELL DISTRIBUTION WIDTH 17.7 % (11.7-14.4)
[2020-07-31 07:00] LABS: ALBUMIN 2.7 g/dL (3.5-5.0); ANION GAP 10.7 mmol/L (8-16); CALCIUM 9.1 mg/dL (8.4-10.2); CREATININE, SERUM 1.73 mg/dL (0.72-1.25); POTASSIUM 3.7 mmol/L (3.5-5.1)
--- NOTE | 2020-07-31 07:47 | Diagnostic Imaging Report ---
EXAMINATION: CHEST SINGLE (PORTABLE) INDICATION: Pneumonia COMPARISON: Prior day chest x-ray FINDINGS: TUBES and LINES: None. LUNGS: Lungs are well inflated. There is focal linear nodular opacity in the right midlung and linear/patchy opacity in the left lower lung. PLEURA: No pleural effusion or pneumothorax. HEART AND MEDIASTINUM: Cardiac size is mildly enlarged. BONES AND SOFT TISSUES: No acute osseous abnormality. Healing left-sided rib fractures. Partially visualized cervical spine fixation hardware. UPPER ABDOMEN: No free air under the diaphragm. IMPRESSION: Focal opacities in the right mid and left lower lungs may be infectious in the setting of cough. The right midlung opacity may represent underlying pulmonary nodule. Recommend chest CT. Mild cardiomegaly. Signed by: Laurent Weeks DO on 07/31/2020 7:44 AM
[2020-07-31] MEDS: BUDESONIDE 0.5MG/2 ML NEB NEB SCH ×2 (07:55→19:45)
[2020-07-31] MEDS: ACETYLCYSTEINE 20% INHAL SOLN 30 ML VIAL INH SCH ×2 (08:10→19:45)
[2020-07-31] MEDS: TAMSULOSIN HCL 0.4 MG CAP PO SCH ×2 (08:41→17:01)
[2020-07-31] MEDS: BISACODYL 5 MG TAB EC PO SCH (08:52)
[2020-07-31 09:03] LABS: PLATELET ESTIMATE SLIGHTLY DECREASED; PLATELET MORPHOLOGY COMMENT NORMAL
[2020-07-31] MEDS: METOPROLOL TARTRATE 25 MG TAB PO SCH ×2 (09:40→17:01)
[2020-07-31 11:48] LABS: CREATINE KINASE MB 2.8 ng/mL (0-5.0)
--- NOTE | 2020-07-31 13:02 | Progress Note ---
DATE: SUBJECTIVE: The patient still has some swelling and erythema in his foot. He remains on oxygen at 4 L. He is receiving Mucomyst and bronchodilators. PHYSICAL EXAMINATION: VITAL SIGNS: Blood pressure is 117/78 and saturation is 100% on 4 L. HEENT: Shows no facial swelling or erythema. LYMPHATIC: Shows no submandibular, cervical, or supraclavicular adenopathy. CARDIAC: Reveals regular rate and rhythm with normal S1 and S2. LUNGS: Auscultation of lungs reveals decreased breath sounds at the bases. There is no wheezing. ABDOMEN: Soft and nontender. There is no rebound or guarding. EXTREMITIES: Show 2+ leg edema. There is erythema and swelling in the left leg. LABORATORY DATA: White blood cell count is 7.8 and hemoglobin is 9. The platelet count is 117. The BUN to creatinine ratio is 47 to 1.73. The other electrolytes are within normal limits. RADIOGRAPHIC DATA: Chest x-ray shows focal opacities in the mid right and left lower lung blanca. IMPRESSION: 1. Cellulitis of the left leg with sepsis, present on admission. 2. Chronic lymphedema and stasis ulcerations, receiving [facility] an [facility]. 3. Patchy infiltrates in the lung blanca, possibly related to mucoid bronchitis versus aspiration. 4. Chronic obstructive pulmonary disease, requiring inhaled therapy as an outpatient. 5. Parkinson disease. 6. Chronic diastolic heart failure, present on admission. 7. Chronic renal failure, stage 3. 8. Diabetes requiring treatment with oral medications and insulin as an outpatient. 9. Restless legs syndrome. 10. Hypothyroidism. PLAN: 1. Continue current antibiotics. 2. Continue oxygen and bronchodilator therapy. 3. Speech therapy evaluation for possible aspiration. 4. CT scan of the chest to better evaluate infiltrates. MD VERNELL Corrigan/ADRIANL /[id number]
--- NOTE | 2020-07-31 13:54 | NUR ---
WOUND CARE CONSULT 74 YO MALE HX OF CELLULITIS LLE MARY ANN 16 0N MODERATE PUP STATUS AND INTERVENTIONS ALTERNATING PRESSURE MATTRESS LABS: WBC- 7.79 HGB- 9.0 GLUCOSE-78 SKIN ASSESSMENT COMPLETE PATIENT PRESENTS WITH LEFT ELBOW STAGE 2 ULCERATION STATED BY PATIENT TO BE CAUSED BY PRESSURE MEASURES 4CM X4CM X 0.2CM UNDERMINING OF 2CM FROM 12 O'CLOCK TO 12 O'CLOCK LEFT DORSAL FOOT DIABETIC ULCERATION NOTED 1CM X1CM COVERED WITH YELLOW STRINGY SLOUGH 70 % 30% DULL RED BASE RECOMMENDATIONS: NURSING TO CONTINUE TO MONITOR PATIENT AND KEEP SKIN CLEAN AND FREE FROM LOOSE STOOL OR IRRITATING MOISTURE AND CONTINUE TO FOLLOW MODERATE PUP INTERVENTIONS VISCO MATTRESS NURSING TO CONTINUE TO GET PATIENT OUT OF BED FOR MEALS AND MUCH TOLERATED NURSING TO MAINTAIN BILATERAL TUBIGRIP HOSE TO LOWER EXTREMITIES USE ONLY ONE LAYER TO LEFT LEG NURSING TO CLEAN LEFT ELBOW STAGE 2 ULCERATION WITH NORMAL SALINE DAILY AND APPLY MAXSORB AG AND COVER WITH ABD PAD WRAP WITH KERLIX NURSING TO CLEAN LEFT DORSAL FOOT DIABETIC ULCERATION WITH NORMAL SALINE DAILY AND APPLY SANTYL OINTMENT TO YELLOW SLOUGH AND COVER WITH 4X4 AND ALLEVYN FOAM USE ONE LAYER TUBIGRIP Addendum: 07/31/20 at 1406 by Saud Del Cid RN Amended: Links added.
--- NOTE | 2020-07-31 13:57 | Diagnostic Imaging Report ---
EXAM: CT Chest WITHOUT intravenous contrast 07/31/2020 1:10 PM INDICATION: Pulmonary infiltrates COMPARISON: Chest radiograph 07/31/2020 TECHNIQUE: Chest was scanned utilizing a multidetector helical scanner from the lung apex through the level of the adrenal glands without administration of IV contrast. Coronal and sagittal reformations were obtained. Routine protocol was performed. IV CONTRAST: None RADIATION DOSE: Total DLP: 530 mGy*cm. Dose modulation, iterative reconstruction, and/or weight based adjustment of the mA/kV was utilized to reduce the radiation dose to as low as reasonably achievable. COMPLICATIONS: None FINDINGS: LINES/ TUBES: None. LUNGS AND AIRWAYS: The central airways are patent. Multifocal consolidation involving the dependent posterior segment of right upper lobe, medial right middle lobe, lingula, and posterior basal left lower lobe. Background of upper lobe predominant centrilobular emphysema. PLEURA: The pleural spaces are clear. HEART AND MEDIASTINUM: The thyroid gland is normal. No mediastinal, hilar or axillary lymphadenopathy. The heart is normal in size.. There is no pericardial effusion. Atherosclerotic calcifications involve the thoracic aorta, coronary arteries and proximal great vessels. Status post coronary artery stenting and left atrial appendage occlusion. UPPER ABDOMEN: No acute findings in the upper abdomen. Partially visualized cysts at the upper pole the left kidney. BONES: No acute osseous injury. No suspicious lytic or blastic lesions. Degenerative changes of the visualized spine. SOFT TISSUES: Unremarkable. IMPRESSION: Multifocal consolidation most notably at the right upper lobe, lingula, and left lower lobe concerning for multifocal pneumonia. Recommend PA and lateral chest radiographs 6-8 weeks after treatment to assess for resolution and to exclude underlying neoplastic etiology. Signed by: Santino Gutierrez MD on 07/31/2020 1:54 PM
[2020-07-31] MEDS ORDERED: POLYETHYLENE GLYCOL 3350 17 GM PACK PO PRN (16:45)
[2020-07-31] MEDS ORDERED: ACETAMINOPHEN 325 MG TAB PO PRN (16:45)
[2020-07-31] MEDS ORDERED: TEMAZEPAM 7.5 MG CAP PO PRN (16:45)
[2020-07-31] MEDS ORDERED: METOPROLOL TARTRATE INJ 1 MG/ML VIAL IV PRN (16:45)
[2020-07-31] MEDS: DOCUSATE SODIUM 100 MG CAP PO SCH (17:03)
[2020-07-31] MEDS ORDERED: HYDROMORPHONE 1MG/1ML INJ IV PRN (17:15)
[2020-07-31] MEDS ORDERED: [UNRECOGNIZED DRUG - OTHER] INH SCH (17:45)
[2020-07-31] MEDS ORDERED: HYDROMORPHONE HCL 8 MG PO PRN (17:45)
[2020-07-31] MEDS ORDERED: LIDOCAINE TOP PRN (17:45)
[2020-07-31] MEDS ORDERED: METOLAZONE 5 MG TAB PO PRN (17:45)
[2020-07-31] MEDS ORDERED: SODIUM CHLORIDE FOR INHALATION 7% INH SCH (17:45)
[2020-07-31] MEDS ORDERED: ALPRAZOLAM 0.5 MG TAB PO PRN (17:45)
[2020-07-31] MEDS ORDERED: COLCHICINE 0.6 MG TAB PO PRN (17:45)
[2020-07-31] MEDS: SODIUM CHLORIDE 0.9% 1000ML 1,000 ML IV SCH (17:48)
--- NOTE | 2020-07-31 19:04 | Consultation ---
DATE OF CONSULTATION: REASON FOR CONSULTATION: Cellulitis of the left leg. HISTORY OF PRESENT ILLNESS: This is a very pleasant 74-year-old white gentleman, who has history of COPD, history of asthma, comes in with redness and swelling of his left leg for more than a week. He took some oral antibiotic without any improvement. The patient, who has multiple hospitalizations, has COPD, asthma, congestive heart failure diastolic, ejection fraction 56%, chronic kidney disease, hypertension, diabetes mellitus, severe REM behavior disorder, Parkinson disorder, and ankylosing spondylitis, comes in with the above complaints. PAST SURGICAL HISTORY: Denies. PAST MEDICAL HISTORY: As above. The patient was admitted. MEDICATIONS: He is currently on Colace, Lopressor, piperacillin/tazobactam, and Tylenol. ALLERGIES: GABAPENTIN. LABORATORY DATA: White count 10.7 and hemoglobin of 10.0. His sodium 141, potassium 3.7, and creatinine 1.73. PHYSICAL EXAMINATION: GENERAL: He is currently alert and oriented. Does not seem to be in acute distress. VITAL SIGNS: Stable, currently afebrile. HEENT: He is not icteric. NECK: Supple. CHEST: Clear. EXTREMITIES: The left leg, there is erythema, there is edema. IMPRESSION: 1. Cellulitis of the left lower extremity. 2. Lymphedema. 3. Venous stasis dermatitis. 4. Chronic obstructive pulmonary disease. 5. Parkinson disease. 6. Congestive heart failure. 7. Chronic kidney disease. PLAN: Put him on Rocephin and Zyvox. Discontinue Zosyn. Keep thigh-high elastic stocking. We will follow. MD CATHERINE Melendez/STEVE /[id number]
[2020-07-31] MEDS: LINEZOLID 600 MG/D5W 300ML 300 ML IV SCH (19:30)
--- NOTE | 2020-07-31 19:30 | NUR ---
Pt. alert and oriented. Skin is warm and dry to touch. Oxygen on 3L per nasal cannula. Respirations are even and unlabored. IV of Normal Saline infusing into a 20 gauge saline lock on his L forearm at 60 cc/hr. No redness or edema noted at site. Pt. has an implanted pain pump to his RLQ of his abd. Dressing on his L lower extremity is clean,dry,intact.
[2020-07-31] MEDS: ALBUTEROL SULFATE HFA 8GM INHALATION AEROSOL INH SCH (19:45)
--- NOTE | 2020-07-31 20:09 | Consultation ---
DATE OF CONSULTATION: 07/31/2020 Cardiology Consultation REQUESTING PHYSICIAN: Kavon Short M.D. REASON FOR CONSULTATION: Cardiac management. HISTORY OF PRESENT ILLNESS: This is a 74-year-old man, well known to our service with chronic diastolic heart failure; coronary artery disease, status post PCI; atrial fibrillation; hypertension; hyperlipidemia; COPD; chronic kidney disease; and cirrhosis, who presented with left lower extremity pain and swelling. The patient reports he was recently discharged after a prolonged admission at [facility]. He reports he had percutaneous intervention performed at that time, but it is unclear which vessel was revascularized. He states he was discharged home on Friday, but noted increasing left lower extremity swelling and redness. On Friday, he was unable to get out of bed, so he presented to the ER for further evaluation. He denies any cardiac complaints. Denies any chest pain, shortness of breath, palpitations, orthopnea, or PND. Denies any fever or chills. REVIEW OF SYSTEMS: Negative except as per HPI. PAST MEDICAL HISTORY: 1. Chronic diastolic heart failure. 2. Coronary artery disease, status post stent. 3. Atrial fibrillation. 4. Hypertension. 5. Hyperlipidemia. 6. Cirrhosis by CT imaging. 7. Chronic kidney disease. 8. Diabetes mellitus. 9. COPD. ALLERGIES: NO KNOWN DRUG ALLERGIES. MEDICATIONS: Please see medication list. SOCIAL HISTORY: No tobacco, alcohol, or illicit drugs. FAMILY HISTORY: Noncontributory to the current illness. PHYSICAL EXAMINATION: VITAL SIGNS: Temperature 98 degrees, pulse 96, respiratory rate is 24, blood pressure 117/78, and oxygen saturation 100% on 4 L nasal cannula. GENERAL: Elderly woman. NECK: Supple. No thyromegaly or cervical lymphadenopathy. EXTREMITIES: Left lower extremity is noted to be erythematous. IMAGING: Atrial fibrillation with rapid ventricular response. IMPRESSION: 1. Left lower extremity cellulitis. 2. Atrial fibrillation with rapid ventricular response. 3. Chronic diastolic heart failure. 4. Coronary artery disease, status post percutaneous coronary intervention. 5. Peripheral arterial disease, status post intervention. 6. Chronic diastolic heart failure. 7. Chronic kidney disease. 8. Hypertension. 9. Hyperlipidemia. 10. Cirrhosis by CT imaging. 11. Diabetes mellitus. RECOMMENDATIONS: Blood pressure is acceptable. Continue home cardiac medications, specifically metoprolol. Monitor the patient closely on telemetry. We may need to titrate up metoprolol to achieve rate control. Continue dual-antiplatelet therapy given recent intervention. Monitor volume status closely. Continue diuretics. Monitor creatinine. Antibiotics per Primary Service and Wound care. Continue wound care. Thank you for this consult. We will continue to follow. Zenaida Randolph MD ABS/MODL /[id number]
[2020-07-31] MEDS: CEFTRIAXONE SOD 1 GM/NS 50 ML 50 ML IV SCH (20:56)
[2020-07-31] MEDS ORDERED: TEMAZEPAM 15 MG CAP PO PRN (21:00)
[2020-07-31] MEDS: LATANOPROST(OPTH) 2.5 ML BTL OU SCH (21:16)
[2020-07-31] MEDS: SERTRALINE HCL 50 MG TAB PO SCH (21:16)
[2020-07-31] MEDS: GABAPENTIN 300 MG CAP PO SCH (21:16)
[2020-07-31] MEDS: ALLOPURINOL 300 MG TAB PO SCH (21:16)
[2020-07-31] MEDS: PRAMIPEXOLE DIHYDROCHLORIDE 0.25 MG TAB PO SCH (21:16)
--- NOTE | 2020-07-31 23:54 | NUR ---
Pt. refusing to let the nurse tech do his vital signs. He said she can come back at 0500 in the morning when they do his lab work. That he did not get any sleep last night.
[2020-08-01] VITALS (8 sets, daily range): BP systolic 100–121; BP diastolic 61–75
[2020-08-01] MEDS: IPRATROPIUM BROMIDE INHALER 12.9 GM INH INH SCH ×3 (01:00→19:30)
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
[2020-08-01] MEDS: LINEZOLID 600 MG/D5W 300ML 300 ML IV SCH ×2 (05:43→17:49)
[2020-08-01 06:14] LABS: BASOPHILS % 0.2 % (0.0-1.0); EOSINOPHILS # (AUTO) 0.2 (0.0-0.4); EOSINOPHILS % 2.6 % (0.0-6.0); HEMOGLOBIN 8.1 g/dL (14.0-18.0); LYMPHOCYTES # (AUTO) 0.7 (1.0-3.2); MEAN CORPUSCULAR HEMOGLOBIN 30.5 pg (28-32); MEAN CORPUSCULAR VOLUME 101.5 fL (81-99); MONOCYTES # (AUTO) 0.5 (0.2-0.8); MONOCYTES % 7.6 % (4.4-11.3); NEUTROPHILS # (AUTO) 4.8 (2.1-6.9); NEUTROPHILS % 77.6 % (38.7-80.0); PLATELET COUNT 106 x10e3/uL (140-360); RED BLOOD COUNT 2.66 x10e6/uL (4.3-5.7); RED CELL DISTRIBUTION WIDTH 17.5 % (11.7-14.4)
[2020-08-01] MEDS: LEVOTHYROXINE SODIUM 100 MCG TAB PO SCH (06:19)
[2020-08-01] MEDS: LIOTHYRONINE SODIUM 5 MCG TAB PO SCH (06:19)
--- NOTE | 2020-08-01 06:40 | NUR ---
Talked to Savana in pharmacy to clarify pt. home medications.
[2020-08-01 06:44] LABS: ALBUMIN 2.3 g/dL (3.5-5.0); ALBUMIN/GLOBULIN RATIO 0.8 (0.8-2.0); ANION GAP 12.9 mmol/L (8-16); CALCIUM 8.6 mg/dL (8.4-10.2); CHOL/HDL RATIO 4.3 (3.9-4.7); CREATININE, SERUM 1.51 mg/dL (0.72-1.25); MAGNESIUM 1.9 MG/DL (1.3-2.1); PHOSPHORUS 2.3 MG/DL (2.3-4.7)
[2020-08-01] MEDS: BUDESONIDE 0.5MG/2 ML NEB NEB SCH ×2 (07:00→19:30)
[2020-08-01] MEDS: ALBUTEROL SULFATE HFA 8GM INHALATION AEROSOL INH SCH ×2 (07:00→19:30)
[2020-08-01] MEDS: ACETYLCYSTEINE 20% INHAL SOLN 30 ML VIAL INH SCH ×2 (07:00→19:00)
[2020-08-01 07:03] LABS: POTASSIUM 2.9 mmol/L (3.5-5.1)
--- NOTE | 2020-08-01 08:00 | NUR ---
Paged attending to report potassium of 2.9, waiting for call back.
[2020-08-01] MEDS ORDERED: POTASSIUM CHLORIDE 20 MEQ TAB CR PO SCH (09:00)
[2020-08-01] MEDS ORDERED: [UNRECOGNIZED DRUG - OTHER] SCH (09:00)
[2020-08-01] MEDS: DAPSONE 25 MG TAB PO SCH (09:00)
[2020-08-01] MEDS ORDERED: TICAGRELOR 90 MG TABLET PO SCH (09:00)
[2020-08-01] MEDS ORDERED: NON-FORMULARY MEDICATION (Mirabegron (Myrbetriq) 50 MG) PO SCH (09:00)
[2020-08-01] MEDS: HOME MEDICATION--PATIENTS OWN PO SCH ×2 (09:00→17:00)
[2020-08-01] MEDS ORDERED: ALBUTEROL SULFATE 2.5 MG INH SCH (09:00)
[2020-08-01] MEDS: CLONAZEPAM 0.5 MG TAB PO SCH ×2 (09:00→17:00)
[2020-08-01] MEDS: PANTOPRAZOLE SOD 40 MG TABEC PO SCH (09:01)
[2020-08-01] MEDS: SITAGLIPTIN 100 MG TAB PEG SCH (09:01)
[2020-08-01] MEDS: ASPIRIN 81 MG CHEW TAB PO SCH (09:02)
[2020-08-01] MEDS: GLIMEPIRIDE 2 MG TAB PO SCH ×2 (09:02→17:46)
[2020-08-01] MEDS: TAMSULOSIN HCL 0.4 MG CAP PO SCH ×2 (09:03→17:47)
[2020-08-01] MEDS: BUMETANIDE 1 MG TAB PO SCH ×2 (09:03→17:46)
[2020-08-01] MEDS: FERROUS SULFATE 325 MG TAB PO SCH (09:03)
[2020-08-01] MEDS: BISACODYL 5 MG TAB EC PO SCH (09:03)
[2020-08-01] MEDS: DOCUSATE SODIUM 100 MG CAP PO SCH ×2 (09:03→17:46)
[2020-08-01] MEDS: BACLOFEN 10 MG TAB PO SCH ×2 (09:04→17:48)
[2020-08-01] MEDS: FOLIC ACID 1 MG TAB PO SCH ×2 (09:04→17:47)
[2020-08-01] MEDS: CLOPIDOGREL BISULFATE 75 MG TAB PO SCH (09:04)
[2020-08-01] MEDS: METOPROLOL TARTRATE 25 MG TAB PO SCH ×4 (09:04→23:52)
[2020-08-01] MEDS: PREDNISONE 20 MG TAB PO SCH ×2 (09:05→17:48)
[2020-08-01] MEDS: ROPINIROLE HCL 0.25 MG TAB PO SCH ×2 (09:05→17:48)
[2020-08-01] MEDS: CHOLECALCIFEROL 1,000 UNIT TAB PO SCH ×2 (09:10→17:49)
[2020-08-01] MEDS: COLLAGENASE 5 GM TUBE TP SCH (09:11)
[2020-08-01] MEDS: PSYLLIUM 6GM PACKET PO SCH (09:11)
[2020-08-01] MEDS: POTASSIUM CHLORIDE 20MEQ/15ML UDC PO SCH (09:43)
[2020-08-01] MEDS: INSULIN LISPRO 100 UNIT/1 ML 3ML VIAL SQ SCH (09:44)
--- NOTE | 2020-08-01 10:32 | NUR ---
Spoke with attending related to potassium of 2.9. Pt already received scheduled potassium 60meq this morning and made attending aware of this. Received no new orders for additional potassium at this time.
--- NOTE | 2020-08-01 11:32 | Progress Note ---
DATE: Pulmonary Critical Care Progress Note SUBJECTIVE: The patient is currently feeling a little better. He still has some leg pain. He is not having dyspnea. PHYSICAL EXAMINATION: VITAL SIGNS: Blood pressure is 121/72, saturation is 98% on 3 L. HEENT: No facial swelling or erythema. LYMPHATIC: No submandibular, cervical, or supraclavicular adenopathy. CARDIAC: Regular rate and rhythm with a normal S1, S2. There are no murmurs or rubs. ABDOMEN: Soft, nontender. EXTREMITIES: There is some swelling and erythema of the left leg. LABORATORY DATA: Hemoglobin is 8.1. White blood cell count is 6.2. The platelet count is 106. The potassium is 2.9. The BUN to creatinine ratio is 37 to 1.51. IMPRESSION: 1. Cellulitis of the left leg with sepsis, present on admission. 2. Chronic lymphedema and stasis ulcerations requiring outpatient treatment through the [facility]. 3. Patchy infiltrates, possibly related to aspiration pneumonia. 4. Chronic obstructive pulmonary disease. 5. Parkinson disease. 6. Chronic diastolic heart failure. PLAN: 1. Continue current antibiotics. 2. Continue oxygen. 3. Await final results of speech therapy evaluation. Wellington Ross MD [facility]/STEVE /[id number]
[2020-08-01] MEDS: CLOBETASOL PROPIONATE 0.05% CRM 15 GM TUBE TOP SCH (12:08)
--- NOTE | 2020-08-01 13:23 | Progress Note ---
DATE: 08/01/2020 Cardiology Progress Note. SUBJECTIVE: The patient denies chest pain or shortness of breath. He reports he does not feel well today with generalized malaise. OBJECTIVE: VITAL SIGNS: Temperature 98.4 degrees, pulse 105, respiratory rate 22, blood pressure 129/72, oxygen saturation 98% on 3 L nasal cannula. GENERAL: Elderly man, in no acute distress. Awake and alert. LUNGS: Clear to auscultation bilaterally. No wheezes or crackles. CARDIOVASCULAR: Tachycardic, irregularly irregular. ABDOMEN: Soft, nontender. EXTREMITIES: Compression wrappings are present bilaterally. CARDIAC MEDICATIONS: 1. Plavix 75 mg p.o. daily. 2. Metoprolol tartrate 12.5 mg p.o. b.i.d. 3. Bumex 4 mg p.o. b.i.d. 4. Aspirin 81 mg p.o. daily. LABORATORY DATA: WBC 6.18, hemoglobin 8.1, hematocrit 27, platelets 106. Sodium 138, potassium 2.9, chloride 95, CO2 of 33, BUN 37, and creatinine 1.51. TELEMETRY: Telemetry was personally reviewed and interpreted revealing normal sinus rhythm. IMPRESSION: 1. Left lower extremity cellulitis. 2. Atrial fibrillation with rapid ventricular response. 3. Chronic diastolic heart failure. 4. Coronary artery disease status post PCI. 5. Peripheral artery disease status post intervention. 6. Chronic kidney disease. 7. Hypertension. 8. Hyperlipidemia. 9. Cirrhosis by CT imaging. 10. Diabetes mellitus. RECOMMENDATIONS: Blood pressure is acceptable. Increase metoprolol to q.6 for better rate control. Continue current cardiac medications otherwise. Monitor the patient closely on telemetry. Monitor volume status closely. Continue diuretics, monitor creatinine, and replete electrolytes. Antibiotics per primary service. Continue wound care. Thank you for this consult. We will continue to follow. Zenaida Randolph MD ABS/MODL /[id number]
--- NOTE | 2020-08-01 15:24 | NUR ---
INFECTIOUS DISEASE PROGRESS NOTE DR. CONOR BLACK HISTORY OF PRESENT ILLNESS: This is a very pleasant 74-year-old white gentleman, who has history of COPD, history of asthma, comes in with redness and swelling of his left leg for more than a week. He took some oral antibiotic without any improvement. The patient, who has multiple hospitalizations, has COPD, asthma, congestive heart failure diastolic, ejection fraction 56%, chronic kidney disease, hypertension, diabetes mellitus, severe REM behavior disorder, Parkinson disorder, and ankylosing spondylitis, comes in with the above complaints. ALLERGIES: GABAPENTIN. LABORATORY DATA: REVIEWED RADIOLOGY: reviewed PHYSICAL EXAMINATION: GENERAL: He is currently alert and oriented. Does not seem to be in acute distress. VITAL SIGNS: Stable, currently afebrile. HEENT: He is not icteric. normocephalic NECK: Supple. no JVD CV: s1, s2, no s3, s4 CHEST: Clear, symmetric expansion EXTREMITIES: The left leg, there is erythema, there is edema. NEURO: cn intact IMPRESSION: 1. Cellulitis of the left lower extremity. 2. Lymphedema. 3. Venous stasis dermatitis. 4. Chronic obstructive pulmonary disease. 5. Parkinson disease. 6. Congestive heart failure. 7. Chronic kidney disease. PLAN: Rocephin and Zyvox. Keep thigh-high elastic stocking. clinically improved Discussed with Dr. Krystin Cooley MSN, [employer]GER, [facility]- Conor Black M.D.
[2020-08-01] MEDS: GUAIFENESIN 600 MG TAB PO SCH (17:48)
[2020-08-01] MEDS ORDERED: ONDANSETRON HCL 4 MG ORAL DISINTEGRATING TAB PO PRN (18:00)
[2020-08-01] MEDS: ALLOPURINOL 300 MG TAB PO SCH (21:25)
[2020-08-01] MEDS: SERTRALINE HCL 50 MG TAB PO SCH (21:25)
[2020-08-01] MEDS: PRAMIPEXOLE DIHYDROCHLORIDE 0.25 MG TAB PO SCH (21:25)
[2020-08-01] MEDS: LATANOPROST(OPTH) 2.5 ML BTL OU SCH (21:25)
[2020-08-01] MEDS: GABAPENTIN 300 MG CAP PO SCH (21:25)
[2020-08-01] MEDS: CEFTRIAXONE SOD 1 GM/NS 50 ML 50 ML IV SCH (21:25)
[2020-08-02] VITALS (7 sets, daily range): BP systolic 113–139; BP diastolic 71–82
[2020-08-02] MEDS: IPRATROPIUM BROMIDE INHALER 12.9 GM INH INH SCH ×4 (02:20→19:30)
[2020-08-02 06:16] LABS: BASOPHILS % 0.3 % (0.0-1.0); EOSINOPHILS # (AUTO) 0.2 (0.0-0.4); EOSINOPHILS % 3.1 % (0.0-6.0); HEMATOCRIT 27.2 % (38.2-49.6); HEMOGLOBIN 8.2 g/dL (14.0-18.0); LYMPHOCYTES # (AUTO) 0.4 (1.0-3.2); LYMPHOCYTES % 7.5 % (18.0-39.1); MEAN CORPUSCULAR HEMOGLOBIN 30.6 pg (28-32); MEAN CORPUSCULAR HGB CONC 30.1 g/dL (31-35); MEAN CORPUSCULAR VOLUME 101.5 fL (81-99); MONOCYTES # (AUTO) 0.3 (0.2-0.8); MONOCYTES % 5.1 % (4.4-11.3); NEUTROPHILS # (AUTO) 4.8 (2.1-6.9); NEUTROPHILS % 83.1 % (38.7-80.0); PLATELET COUNT 113 x10e3/uL (140-360); RED BLOOD COUNT 2.68 x10e6/uL (4.3-5.7); RED CELL DISTRIBUTION WIDTH 16.6 % (11.7-14.4)
[2020-08-02] MEDS: LEVOTHYROXINE SODIUM 100 MCG TAB PO SCH (06:18)
[2020-08-02] MEDS: LINEZOLID 600 MG/D5W 300ML 300 ML IV SCH ×2 (06:18→18:04)
[2020-08-02] MEDS: METOPROLOL TARTRATE 25 MG TAB PO SCH ×3 (06:28→18:05)
[2020-08-02] MEDS: LIOTHYRONINE SODIUM 5 MCG TAB PO SCH (06:30)
[2020-08-02 06:36] LABS: ANION GAP 15.2 mmol/L (8-16); CALCIUM 8.9 mg/dL (8.4-10.2); CREATININE, SERUM 1.49 mg/dL (0.72-1.25); POTASSIUM 3.2 mmol/L (3.5-5.1)
[2020-08-02] MEDS: ACETYLCYSTEINE 20% INHAL SOLN 30 ML VIAL INH SCH ×2 (07:00→19:00)
--- NOTE | 2020-08-02 07:00 | NUR ---
RECEIVED BEDSIDE SHIFT REPORT FROM OFF GOING NIGHT NURSE. PATIENT IN STABLE CONDITION, NO S/S OF DISTRESS NOTED. ON 4 LPM/NC. TELEMETRY WITH CONT. PULSE OX APPLIED. CONDOM CATHETER APPLIED AND PATENT DRAINING BRIAN COLORED URINE INTO DRAINAGE BAG. IV SITE ASYMPTOMATIC AND PATIENT, TRANSPARENT DRESSING APPLIED. SCDs APPLIED. BED IN LOWEST POSITION AND LOCKED , SIDE RAILS X 2, NONSKID SOCKS APPLIED. CALL LIGHT WITHIN REACH.
[2020-08-02] MEDS: ALBUTEROL SULFATE HFA 8GM INHALATION AEROSOL INH SCH ×2 (07:20→19:30)
[2020-08-02] MEDS: BUDESONIDE 0.5MG/2 ML NEB NEB SCH ×2 (07:20→19:30)
[2020-08-02] MEDS: INSULIN LISPRO 100 UNIT/1 ML 3ML VIAL SQ SCH (07:30)
[2020-08-02] MEDS: PANTOPRAZOLE SOD 40 MG TABEC PO SCH (07:30)
[2020-08-02] MEDS: GLIMEPIRIDE 2 MG TAB PO SCH ×2 (08:43→16:07)
[2020-08-02] MEDS: DOCUSATE SODIUM 100 MG CAP PO SCH ×2 (08:43→16:07)
[2020-08-02] MEDS: FOLIC ACID 1 MG TAB PO SCH ×2 (08:44→16:07)
[2020-08-02] MEDS: DAPSONE 25 MG TAB PO SCH (08:44)
[2020-08-02] MEDS: PSYLLIUM 6GM PACKET PO SCH (08:45)
[2020-08-02] MEDS: PREDNISONE 20 MG TAB PO SCH ×2 (08:45→16:08)
[2020-08-02] MEDS: CLOPIDOGREL BISULFATE 75 MG TAB PO SCH (08:45)
[2020-08-02] MEDS: HOME MEDICATION--PATIENTS OWN PO SCH ×2 (09:00→16:08)
[2020-08-02] MEDS: SITAGLIPTIN 100 MG TAB PEG SCH (09:01)
[2020-08-02] MEDS: ASPIRIN 81 MG CHEW TAB PO SCH (09:01)
[2020-08-02] MEDS: BISACODYL 5 MG TAB EC PO SCH (09:01)
[2020-08-02] MEDS: TAMSULOSIN HCL 0.4 MG CAP PO SCH ×2 (09:02→16:07)
[2020-08-02] MEDS: FERROUS SULFATE 325 MG TAB PO SCH (09:02)
[2020-08-02] MEDS: BACLOFEN 10 MG TAB PO SCH ×2 (09:02→16:08)
[2020-08-02] MEDS: GUAIFENESIN 600 MG TAB PO SCH ×2 (09:02→16:08)
[2020-08-02] MEDS: CLONAZEPAM 0.5 MG TAB PO SCH ×2 (09:02→16:08)
[2020-08-02] MEDS: ROPINIROLE HCL 0.25 MG TAB PO SCH ×2 (09:03→16:08)
[2020-08-02] MEDS: POTASSIUM CHLORIDE 20MEQ/15ML UDC PO SCH (09:03)
[2020-08-02] MEDS: BUMETANIDE 1 MG TAB PO SCH ×2 (09:04→16:07)
[2020-08-02] MEDS: CHOLECALCIFEROL 1,000 UNIT TAB PO SCH ×2 (09:04→16:08)
[2020-08-02] MEDS ORDERED: LIDOCAINE 4% PATCH TP PRN (10:30)
--- NOTE | 2020-08-02 11:35 | NUR ---
ST Note: Attempted to see pt for initial session of dysphagia therapy. Pt sleeping very soundly. Will f/u later today time permitting.
[2020-08-02] MEDS ORDERED: SODIUM CHLORIDE 0.9% 250ML 250 ML ONE (11:58)
[2020-08-02] MEDS ORDERED: DEXTROSE 50% SYRINGE 50 ML IV PRN ×2 (13:15→23:30)
[2020-08-02] MEDS ORDERED: POTASSIUM CHLORIDE 10MEQ EA PO ONE (13:45)
[2020-08-02] MEDS ORDERED: POTASSIUM CHLORIDE 20MEQ/15ML UDC PO ONE (15:30)
--- NOTE | 2020-08-02 16:38 | NUR ---
INFECTIOUS DISEASE PROGRESS NOTE DR. CONOR BLACK HISTORY OF PRESENT ILLNESS: This is a very pleasant 74-year-old white gentleman, who has history of COPD, history of asthma, comes in with redness and swelling of his left leg for more than a week. He took some oral antibiotic without any improvement. The patient, who has multiple hospitalizations, has COPD, asthma, congestive heart failure diastolic, ejection fraction 56%, chronic kidney disease, hypertension, diabetes mellitus, severe REM behavior disorder, Parkinson disorder, and ankylosing spondylitis, comes in with the above complaints. ALLERGIES: GABAPENTIN. LABORATORY DATA: REVIEWED RADIOLOGY: reviewed PHYSICAL EXAMINATION: GENERAL: He is currently alert and oriented. Does not seem to be in acute distress. VITAL SIGNS: Stable, currently afebrile. HEENT: He is not icteric. normocephalic NECK: Supple. no JVD CV: s1, s2, no s3, s4 CHEST: Clear, symmetric expansion EXTREMITIES: The left leg, there is erythema, there is edema. NEURO: cn intact IMPRESSION: 1. Cellulitis of the left lower extremity. 2. Lymphedema. 3. Venous stasis dermatitis. 4. Chronic obstructive pulmonary disease. 5. Parkinson disease. 6. Congestive heart failure. 7. Chronic kidney disease. PLAN: Rocephin and Zyvox. Keep thigh-high elastic stocking. clinically improved can d/c with 2 weeks oral zyvox Discussed with Dr. Krystin Cooley MSN, [employer], [facility]- Conor Black M.D.
--- NOTE | 2020-08-02 17:50 | Progress Note ---
DATE: 08/02/2020 Cardiology Progress Note SUBJECTIVE: The patient denies chest pain or shortness of breath. He is complaining of some congestion. OBJECTIVE: VITAL SIGNS: Temperature 97.3 degrees, pulse 82, respiratory rate 20, blood pressure 113/74, and oxygen saturation 95% on 3 L nasal cannula. GENERAL: Elderly man, in no acute distress. Awake and alert. LUNGS: Clear to auscultation bilaterally. No wheezes or crackles. CARDIOVASCULAR: Normal rate. Irregularly irregular rhythm. Normal S1 and S2. ABDOMEN: Soft and nontender. EXTREMITIES: Compression wrappings are present bilaterally. Erythema has improved. CARDIAC MEDICATIONS: Bumex 4 mg p.o. b.i.d., metoprolol tartrate 12.5 mg p.o. q.6 hours, aspirin 81 mg p.o. daily, Plavix 75 mg p.o. daily, levothyroxine 100 mcg p.o. daily, and liothyronine 5 mcg p.o. daily. LABORATORY DATA: WBC 5.74, hemoglobin 8.2, hematocrit 27.2, and platelets 113. Sodium 138, potassium 3.2, chloride 95, CO2 31, BUN 37, and creatinine 1.49. Telemetry was personally reviewed and interpreted revealing atrial fibrillation. IMPRESSION: 1. Left lower extremity cellulitis. 2. Atrial fibrillation. 3. Chronic diastolic heart failure. 4. Coronary artery disease, status post PCI. 5. Peripheral arterial disease, status post intervention. 6. Chronic kidney disease. 7. Hypertension. 8. Hyperlipidemia. 9. Cirrhosis by CT imaging. 10. Diabetes mellitus. RECOMMENDATIONS: The patient's blood pressure is acceptable. Rate is controlled on telemetry. Continue current cardiac medications. Monitor volume status closely. Continue diuretics. Creatinine has been stable. We will continue to monitor and replete electrolytes. Antibiotics per Infectious Disease. Continue wound care. Thank you for this consult. We will continue to follow. Zenaida Randolph MD ABS/MODL /[id number]
--- NOTE | 2020-08-02 19:09 | NUR ---
COMPLETED BEDSIDE SHIFT REPORT AND ROUNDING WITH ON COMING NIGHT NURSE. PATIENT IN STABLE CONDITION, NO S/S OF DISTRESS NOTED. ON 4 LPM/NC. TELEMETRY WITH CONT. PULSE OX APPLIED. CONDOM CATHETER APPLIED AND PATENT DRAINING LIGHT YELLOW COLORED URINE INTO DRAINAGE BAG. IV SITE ASYMPTOMATIC AND PATIENT, TRANSPARENT DRESSING APPLIED. SCDs APPLIED. BED IN LOWEST POSITION AND LOCKED , SIDE RAILS X 2, NONSKID SOCKS APPLIED. CALL LIGHT WITHIN REACH.
--- NOTE | 2020-08-02 19:42 | NUR ---
RECEIVED PATIENT IN BED AOX3 NO S/S OF DISTRESS NOTED. ON 4 LPM/NC. TELEMETRY WITH CONT. PULSE OX PT HAS CONDOM CATHETER AP DRAINING LIGHT YELLOW COLORED URINE INTO DRAINAGE BAG. IV SITE ASYMPTOMATIC AND PATIENT, . LEFT ELBOW AND LEFT LOWER EXTREMITIES CELLULITIS TELE SHOWS AFIB CALL LIGHT WITH IN REACH ,CONTINUE TO MONITOR
[2020-08-02] MEDS: CEFTRIAXONE SOD 1 GM/NS 50 ML 50 ML IV SCH (20:00)
[2020-08-02] MEDS: SERTRALINE HCL 50 MG TAB PO SCH (20:42)
[2020-08-02] MEDS: PRAMIPEXOLE DIHYDROCHLORIDE 0.25 MG TAB PO SCH (20:42)
[2020-08-02] MEDS: LATANOPROST(OPTH) 2.5 ML BTL OU SCH (20:42)
[2020-08-02] MEDS: ALLOPURINOL 300 MG TAB PO SCH (20:43)
[2020-08-02] MEDS: GABAPENTIN 300 MG CAP PO SCH (22:57)
[2020-08-03] MEDS: IPRATROPIUM BROMIDE INHALER 12.9 GM INH INH SCH ×2 (01:00→07:16)
[2020-08-03 05:00] VITALS: BP 128/79
[2020-08-03] MEDS: COLLAGENASE 5 GM TUBE TP SCH ×2 (05:05→09:47)
[2020-08-03] MEDS: CLOBETASOL PROPIONATE 0.05% CRM 15 GM TUBE TOP SCH ×2 (05:05→09:47)
[2020-08-03 05:06] LABS: BASOPHILS % 0.2 % (0.0-1.0); EOSINOPHILS % 0.2 % (0.0-6.0); HEMATOCRIT 28.7 % (38.2-49.6); HEMOGLOBIN 8.7 g/dL (14.0-18.0); LYMPHOCYTES # (AUTO) 0.6 (1.0-3.2); MEAN CORPUSCULAR HEMOGLOBIN 30.9 pg (28-32); MEAN CORPUSCULAR HGB CONC 30.3 g/dL (31-35); MEAN CORPUSCULAR VOLUME 101.8 fL (81-99); MONOCYTES # (AUTO) 0.3 (0.2-0.8); MONOCYTES % 4.8 % (4.4-11.3); NEUTROPHILS # (AUTO) 4.8 (2.1-6.9); NEUTROPHILS % 82.4 % (38.7-80.0); PLATELET COUNT 130 x10e3/uL (140-360); RED BLOOD COUNT 2.82 x10e6/uL (4.3-5.7); RED CELL DISTRIBUTION WIDTH 16.5 % (11.7-14.4)
[2020-08-03] MEDS: LEVOTHYROXINE SODIUM 100 MCG TAB PO SCH (05:09)
[2020-08-03] MEDS: LIOTHYRONINE SODIUM 5 MCG TAB PO SCH (05:09)
[2020-08-03] MEDS: LINEZOLID 600 MG/D5W 300ML 300 ML IV SCH (05:09)
[2020-08-03 05:29] LABS: ALBUMIN 2.5 g/dL (3.5-5.0); ALBUMIN/GLOBULIN RATIO 0.7 (0.8-2.0); ANION GAP 16.2 mmol/L (8-16); CALCIUM 9.4 mg/dL (8.4-10.2); CREATININE, SERUM 1.75 mg/dL (0.72-1.25); POTASSIUM 5.2 mmol/L (3.5-5.1)
--- NOTE | 2020-08-03 05:29 | NUR ---
PT RESTED DURING THE NIGHT .DENIES PAIN ,CALL LIGHT WITH IN REACH ,CONTINUE TO MONITOR
[2020-08-03] MEDS: METOPROLOL TARTRATE 25 MG TAB PO SCH ×2 (05:56)
[2020-08-03] MEDS: ACETYLCYSTEINE 20% INHAL SOLN 30 ML VIAL INH SCH (07:00)
--- NOTE | 2020-08-03 07:00 | NUR ---
RECEIVED BEDSIDE SHIFT REPORT FROM OFF GOING NIGHT NURSE. PATIENT IN STABLE CONDITION, NO S/S OF DISTRESS NOTED. ON 3 LPM/NC. TELEMETRY WITH CONT. PULSE OX APPLIED. CONDOM CATHETER APPLIED AND PATENT DRAINING BRIAN COLORED URINE INTO DRAINAGE BAG. SCDs APPLIED. BED IN LOWEST POSITION AND LOCKED , SIDE RAILS X 2, NONSKID SOCKS APPLIED. CALL LIGHT WITHIN REACH.
--- NOTE | 2020-08-03 07:14 | NUR ---
BEDSIDE REPORT GIVEN TO THE ONCOMING NURSE
[2020-08-03] MEDS: ALBUTEROL SULFATE HFA 8GM INHALATION AEROSOL INH SCH (07:16)
[2020-08-03] MEDS: BUDESONIDE 0.5MG/2 ML NEB NEB SCH (07:20)
[2020-08-03] MEDS ORDERED: INSULIN REGULAR, HUMAN 100 UNIT/1 ML 3ML VIAL SQ SCH (07:30)
[2020-08-03] MEDS: PANTOPRAZOLE SOD 40 MG TABEC PO SCH (07:30)
[2020-08-03 08:30] VITALS: BP 132/83
--- NOTE | 2020-08-03 08:33 | NUR ---
THE PATIENT IS REFUSING TO HAVE AN IV PLACED.
[2020-08-03 08:40] VITALS: BP 132/83
[2020-08-03] MEDS ORDERED: SITAGLIPTIN 100 MG TAB PO SCH (09:00)
[2020-08-03] MEDS: CHOLECALCIFEROL 1,000 UNIT TAB PO SCH (09:00)
[2020-08-03] MEDS: HOME MEDICATION--PATIENTS OWN PO SCH (09:00)
[2020-08-03] MEDS: POTASSIUM CHLORIDE 20MEQ/15ML UDC PO SCH (09:00)
[2020-08-03] MEDS: BUMETANIDE 1 MG TAB PO SCH (09:42)
[2020-08-03] MEDS: GLIMEPIRIDE 2 MG TAB PO SCH (09:42)
[2020-08-03] MEDS: ASPIRIN 81 MG CHEW TAB PO SCH (09:42)
[2020-08-03] MEDS: DOCUSATE SODIUM 100 MG CAP PO SCH (09:43)
[2020-08-03] MEDS: DAPSONE 25 MG TAB PO SCH (09:43)
[2020-08-03] MEDS: FERROUS SULFATE 325 MG TAB PO SCH (09:44)
[2020-08-03] MEDS: BISACODYL 5 MG TAB EC PO SCH (09:44)
[2020-08-03] MEDS: FOLIC ACID 1 MG TAB PO SCH (09:45)
[2020-08-03] MEDS: CLONAZEPAM 0.5 MG TAB PO SCH (09:45)
[2020-08-03] MEDS: BACLOFEN 10 MG TAB PO SCH (09:46)
[2020-08-03] MEDS: GUAIFENESIN 600 MG TAB PO SCH (09:46)
[2020-08-03] MEDS: PSYLLIUM 6GM PACKET PO SCH (09:46)
[2020-08-03] MEDS: CLOPIDOGREL BISULFATE 75 MG TAB PO SCH (09:46)
[2020-08-03] MEDS: ROPINIROLE HCL 0.25 MG TAB PO SCH (09:47)
[2020-08-03] MEDS: PREDNISONE 20 MG TAB PO SCH (09:47)
[2020-08-03] MEDS: TAMSULOSIN HCL 0.4 MG CAP PO SCH (10:56)
--- NOTE | 2020-08-03 11:09 | Progress Note ---
DATE: SUBJECTIVE: The patient has less swelling and erythema in the leg. He is not complaining of dyspnea or cough. He reports that staff is having difficulty finding an IV. PHYSICAL EXAMINATION: VITAL SIGNS: Saturation is 100% on 4 L. Pulse is 82, respiratory rate is 19. HEENT: Shows no facial swelling or erythema. LYMPHATIC: Shows no submandibular, cervical, or supraclavicular adenopathy. CARDIAC: Reveals regular rate and rhythm with normal S1 and S2. LUNGS: Auscultation of lungs shows decreased breath sounds at the bases. There is no wheezing. ABDOMEN: Soft and nontender. There is no rebound or guarding. EXTREMITIES: Shows 1 to 2+ leg edema. There is some mild erythema. LABORATORY DATA: White blood cell count is 5.8, hemoglobin is 8.7. The platelet count is 130. BUN to creatinine ratio is 44 to 1.75. Blood sugar is 309 and the albumin is 2.5. IMPRESSION: 1. Cellulitis of the lower extremity with sepsis, present on admission. 2. Chronic lymphedema and stasis ulcerations, requiring outpatient treatment through the [facility]. 3. Atrial fibrillation. 4. Chronic diastolic heart failure. 5. Coronary artery disease. 6. Peripheral vascular disease with prior intervention. 7. Chronic renal failure, stage 3. 8. Cirrhosis. PLAN: 1. Continue current antibiotics. 2. Continue to monitor and control blood sugars. 3. Continue to monitor creatinine and renal function. 4. Complete current antibiotics. MD VERNELL Corrigan/STEVE /[id number]
[2020-08-03] MEDS ORDERED: COLACE100 MG PO (11:18)
[2020-08-03] MEDS ORDERED: MUCINEX600 MG PO (11:18)
[2020-08-03] MEDS ORDERED: JANUVIA100 MG PO (11:18)
[2020-08-03] MEDS ORDERED: Collagenase TP (11:18)
[2020-08-03] MEDS ORDERED: METOPROLOL SUCC50 MG PO (11:18)
[2020-08-03] MEDS ORDERED: CEFTIN PO (11:18)
--- NOTE | 2020-08-03 11:40 | NUR ---
ST NOTE: Pt is refusing Speech Therapy intervention denying he has dysphagia, pt is currently being d/c to home. Pt with history of refusing therapy intervention regardless of MBS results. Handoff to MELISA Dahl
--- NOTE | 2020-08-03 11:48 | NUR ---
Received order to resume home health services for pt. CM to pt's bedside. Pt called his on the phone. States he's currently on service with [facility], would like to continue services with them. Choice letter signed for [facility]. Copy of choice letter given to pt. IMM letter discussed with pt and . They verbalized understanding. Copy provided to pt. Signed choice letter and IMM placed in chart. CM called and spoke with Demi at [facility]. Verified that pt currently on service with them. Pt getting SN 3x/week for wound care and PT 3x/week. Informed her that pt will be discharging home today. Resumption order and clinical sent.
[2020-08-03 12:11] VITALS: BP 140/90
--- NOTE | 2020-08-03 13:06 | Progress Note ---
DATE: 08/03/2020 Cardiology Progress Note. SUBJECTIVE: The patient denies chest pain or shortness of breath. OBJECTIVE: VITAL SIGNS: Temperature 98.3 degrees, pulse 82, respiratory rate 19, blood pressure 132/83, and oxygen saturation 100% on 4 L nasal cannula. GENERAL: Elderly man, in no acute distress. Awake and alert. LUNGS: Clear to auscultation bilaterally. No wheezes or crackles. CARDIOVASCULAR: Normal rate. Irregularly irregular rhythm. Normal S1, S2. ABDOMEN: Soft and nontender. EXTREMITIES: Compression wrappings are present. Bilateral 1+ pitting edema is noted. CARDIAC MEDICATIONS: 1. Plavix 75 mg p.o. daily. 2. Aspirin 81 mg p.o. daily. 3. Metoprolol tartrate 12.5 mg p.o. q.6 hours. 4. Levothyroxine 100 mcg p.o. daily. 5. Liothyronine 5 mcg p.o. daily. LABORATORY DATA: WBC 5.8, hemoglobin 8.7, hematocrit 28.7, platelets 130. Sodium 139, potassium 5.2, chloride 95, CO2 of 33, BUN 44, creatinine 1.75. TELEMETRY: Personally reviewed and interpreted revealing atrial fibrillation. IMPRESSION: 1. Left lower extremity cellulitis. 2. Atrial fibrillation. 3. Chronic diastolic heart failure. 4. Coronary artery disease status post PCI. 5. Peripheral artery disease status post intervention. 6. Chronic kidney disease. 7. Hypertension. 8. Hyperlipidemia. 9. Cirrhosis by CT imaging. 10. Diabetes mellitus. RECOMMENDATIONS: The patient's blood pressure is acceptable. Heart rate is controlled. Monitor patient on telemetry. Continue current cardiac medications. Monitor volume status closely. Continue diuretics. Creatinine is relatively stable. Monitor and replete electrolytes. Antibiotics per Infectious Disease. Thank you for this consult. We will continue to follow. Zenaida Randolph MD ABS/MODL /[id number]
--- NOTE | 2020-08-03 13:34 | NUR ---
PATIENT DISCHARGED HOME WITH HOME HEALTH- BROUGHT THE PATIENT'S OXYGEN FROM HOME 3LPM/NC APPLIED. PATIENT OFF THE UNIT @ 1308 VIA WHEELCHAIR ACCOMPANIED BY AND PCT TO THE LOBBY. PATIENT INSTABLE CONDITION, NO S/S OF DISTRESS NOTED. NO PAIN VOICED. NO IV ACCESS. ALL PERSONAL ITEMS TAKEN WITH THE PATIENT. DISCHARGE TEACHING AND INSTRUCTIONS GIVEN TO THE PATIENT. PATIENT VERBALIZED UNDERSTANDING. ALL DISCHARGE PAPERWORK AND PRESCRIPTIONS GIVEN TO THE PATENT.
--- NOTE | 2020-08-03 16:58 | NUR ---
Nutrition Screen Note RD Recommendation for Physician: -Recommend low sodium/ADA diet -Encourage Alberto BID to promote wound healing Plan of Care: RD following, monitoring for tolerance and adequacy Nutrition reason for involvement: pressure ulcer Primary Diagnose(s): cellulitis LLE PMH: chronic diastolic heart failure, Coronary artery disease, status post stent, Atrial fibrillation, Hypertension, Hyperlipidemia, Cirrhosis by CT imaging, Chronic kidney disease, Diabetes mellitus. COPD. Ht: 69 in Wt: 229lb BMI: 33.8 kg/m2 IBW:[address] Assessment: (08/03/20) Chart reviewed. Labs and meds reviewed. Pt is a 74 year old male admitted with cellulitis LLE. Pt reports a good appetite and is eating all of his meals. Pt was unsure of any recent weight changes and stated that he usually weighs 220 lbs. Pt currently has a weight of 229 lbs in chart. Wound care note indicates pt has a stage 2 pressure ulcer to left elbow and left dorsal foot diabetic ulcer. Offered pt Alberto to promote wound healing, but pt declined. Pt also denied the need for diet education. Will continue to monitor Current Diet: renal/1800 diabetic diet Malnutrition Evaluation (08/03/20) The patient does not meet criteria for a specified degree of malnutrition at this time. Will re-evaluate at follow-up as appropriate. Diet Education Needs Assessment: Pt denied the need for diet education Nutrition Care Level: low Signed: Emiliana Foster, RD, LD
--- NOTE | 2020-08-03 21:28 | Discharge Summary ---
ADMISSION DIAGNOSES: Severe cellulitis with sepsis on the left lower extremity, present on admission; chronic bilateral lower extremity lymphedema and venous stasis ulcers on the left lower extremity, present on admission; aspiration pneumonia, present on admission with sepsis; chronic obstructive pulmonary disease without exacerbation, chronic home O2 use; Parkinson disease; chronic diastolic congestive heart failure; chronic atrial fibrillation with rapid ventricular response; hypertension with chronic diastolic congestive heart failure and chronic kidney disease stage 3; type 2 diabetes with chronic kidney disease stage 3; hypothyroidism; chronic generalized weakness, debility and falls; chronic lower back pain with pain pump in situ with Dilaudid; acute urinary tract infection, present on admission. DISCHARGE DIAGNOSES: Severe cellulitis with sepsis on the left lower extremity, present on admission; chronic bilateral lower extremity lymphedema and venous stasis ulcers on the left lower extremity, present on admission; aspiration pneumonia, present on admission with sepsis; chronic obstructive pulmonary disease without exacerbation, chronic home O2 use; Parkinson disease; chronic diastolic congestive heart failure; chronic atrial fibrillation with rapid ventricular response; hypertension with chronic diastolic congestive heart failure and chronic kidney disease stage 3; type 2 diabetes with chronic kidney disease stage 3; hypothyroidism; chronic generalized weakness, debility and falls; chronic lower back pain with pain pump in situ with Dilaudid; acute urinary tract infection, present on admission; rule out deep venous thrombosis in bilateral lower extremities; Pseudomonas aeruginosa urinary tract infection, present on admission with sepsis. HISTORY: Chronic diastolic CHF, CAD, chronic AFib, hypertension, hyperlipidemia, CKD stage 3, COPD with asthma, type 2 diabetes, autonomic neuropathy, ankylosing spondylitis, chronic pain syndrome with the pain pump in place, chronic venous stasis ulcers of bilateral lower extremities, BPH, glaucoma, gout, hypothyroidism, PLMS severe with REM behavior disorder, Parkinson's, chronic home oxygen use of 4-5 L/minute. SURGICAL HISTORY: PCI with 5 coronary artery stents, prostate surgery, pain pump with use of Dilaudid, bilateral cataract surgery. Watchman procedure. FAMILY HISTORY: Mother and father both had permanent pacemakers. SOCIAL HISTORY: The patient admits to smoking 1 to 1-1/2 pack of cigarettes a day for 50 years. He lives with his at home. HOSPITAL COURSE: A 74-year-old male, admitted to the emergency room due to left leg redness, swelling, pain, and decreased mobility since Friday due to cellulitis. The patient was sent home Friday after spending 45 days in the hospital. He was home for 1 day before readmitting. The redness and soreness got worse in the left lower extremity, so he came to the ER. He was given vancomycin and Zosyn. Bilateral legs are wrapped with pressure dressing due to the lymphedema. Chest x-ray showed focal opacities in the right mid and left lower lobes, may be infectious in the setting of cough. Bilateral lower extremity venous Doppler was negative for DVT. CT of the chest showed multifocal consolidation, notably of the right upper lobe lingula and left lower lobe concerning for multifocal pneumonia. Speech Therapy was consulted and the patient was found to have no outward signs or symptoms of aspiration. He does, however, has a history of silent aspiration from 2019 when he is fatigued. Per the patient, he is not aspirating. He says the food gets stuck in the esophagus and the liquids do not pass. NMES was ordered by Speech Therapy, but the patient continued to refuse. Blood cultures were negative. Urine culture came back positive for Pseudomonas aeruginosa. ID was consulted due to UTI and lower extremity cellulitis. The patient was given Zyvox and Rocephin. Per Physical Therapy recommendation, the patient is safe for discharge home with home health. On the day of discharge, the patient's IV went bad. He is refusing IV placement. He is refusing physical therapy most of the time and refusing NMES therapy per Speech Therapy, so he will discharge home. He was given new prescriptions for Ceftin x14 days per ID recommendation, Santyl for the left lower extremity, Colace, Mucinex, and metoprolol per Cardiology. He will follow up with primary care in 1 to 2 weeks, Dr. Mcclelland in 1 to 2 weeks, Wound Care [facility] and Cardiology in 1 to 2 weeks. The patient understands instructions and agrees to plan. Dictated by Tamela Young NP MD MARKUS Ladd/MODL /[id number]
[2020-08-07] MEDS ORDERED: CYANOCOBALAMIN 1,000 MCG TAB PO SCH (09:00)
== END 2020-08-03 13:08 | disposition home health service (06) | DRG 871 ==
LOC: ER 17:05 → ERHOLD 19:25 → MED/SURG3 22:21
PROVIDERS: ADMIT Internal Medicine; ATTEND Internal Medicine
DX: A41.9 Sepsis, unspecified organism (principal); J69.0 Pneumonitis due to inhalation of food and vomit; L03.116 Cellulitis of left lower limb; N39.0 Urinary tract infection, site not specified; I48.20 Chronic atrial fibrillation, unspecified; I13.0 Hypertensive heart and chronic kidney disease with heart failure and stage 1 through stage 4 chronic kidney disease, or unspecified chronic kidney disease; I50.32 Chronic diastolic (congestive) heart failure; J44.9 Chronic obstructive pulmonary disease, unspecified; Z99.81 Dependence on supplemental oxygen; E11.22 Type 2 diabetes mellitus with diabetic chronic kidney disease; E11.65 Type 2 diabetes mellitus with hyperglycemia; N18.30 Chronic kidney disease, stage 3 unspecified; I89.0 Lymphedema, not elsewhere classified; G20 Parkinson's disease; B96.5 Pseudomonas (aeruginosa) (mallei) (pseudomallei) as the cause of diseases classified elsewhere; J45.909 Unspecified asthma, uncomplicated; E11.43 Type 2 diabetes mellitus with diabetic autonomic (poly)neuropathy; G89.4 Chronic pain syndrome; I87.8 Other specified disorders of veins; H40.9 Unspecified glaucoma; Z91.81 History of falling; E03.9 Hypothyroidism, unspecified; F17.210 Nicotine dependence, cigarettes, uncomplicated; Z11.59 Encounter for screening for other viral diseases; I25.10 Atherosclerotic heart disease of native coronary artery without angina pectoris; Z95.1 Presence of aortocoronary bypass graft; K74.60 Unspecified cirrhosis of liver; G47.52 REM sleep behavior disorder; G47.33 Obstructive sleep apnea (adult) (pediatric); M45.9 Ankylosing spondylitis of unspecified sites in spine; G25.81 Restless legs syndrome; E87.6 Hypokalemia
CPT/HCPCS: 36415; 71045; 71250; 80048; 80053; 80061; 81001; 82550; 82553; 82948; 83605; 83735; 83880; 84100; 84484; 85025; 85610; 85730; 87040; 87086; 87186; 93005; 93971; 94640; 97139; 99251; 99284; J0696; J1160; J1170; J2020; J2270; J2543; J3370; J7030; J7050; J7512

== ENCOUNTER 2020-08-10 18:06 | Emergency (ER) | payer BC, MEDICARE ==
[~2020-08-10] VITALS: Ht 175.3 cm; Wt 103.9 kg
[~2020-08-10 18:06] MED LIST changes: +ALBUTEROL2.5 MG/0.5 INH; +BRILINTA90 MG PO; +CEFTIN PO; +CLONAZEPAM0.25 MG PO; +COLACE100 MG PO; +DAPSONE100 MG PO; +FERROUS SULFAT325 MG PO; +GLIMEPIRIDE4 MG PO; +JANUVIA100 MG PEG; +JANUVIA100 MG PO; +METOPROLOL SUCC50 MG PO; +MIRAPEX0.25 MG PO; +MUCINEX600 MG PO; +NOVOLOG100 UNITS1 SQ; +[UNRECOGNIZED DRUG - OTHER]
[2020-08-10] MEDS ORDERED: BACITRACIN ZINC 0.9GM TP ONE (18:53)
[2020-08-10 20:22] VITALS: BP 117/82
== END 2020-08-10 20:45 | disposition home or self-care (01) ==
LOC: ER 18:26
DX: S51.811A Laceration without foreign body of right forearm, initial encounter (principal); W01.0XXA Fall on same level from slipping, tripping and stumbling without subsequent striking against object, initial encounter; Y92.008 Other place in unspecified non-institutional (private) residence as the place of occurrence of the external cause; I10 Essential (primary) hypertension; E11.40 Type 2 diabetes mellitus with diabetic neuropathy, unspecified; J44.9 Chronic obstructive pulmonary disease, unspecified; I48.91 Unspecified atrial fibrillation; N18.9 Chronic kidney disease, unspecified; M10.9 Gout, unspecified; Z99.81 Dependence on supplemental oxygen
CPT/HCPCS: 99284

== ENCOUNTER 2020-08-14 13:47 | Emergency (ER) | payer BC, MEDICARE ==
[~2020-08-14] VITALS: Ht 175.3 cm; Wt 103.9 kg
== END 2020-08-14 16:32 | disposition home or self-care (01) ==
LOC: ER 14:28
DX: S51.811A Laceration without foreign body of right forearm, initial encounter (principal); W18.30XA Fall on same level, unspecified, initial encounter; Y92.89 Other specified places as the place of occurrence of the external cause
CPT/HCPCS: 99283

== ENCOUNTER 2020-08-18 12:02 | Inpatient (IN) | payer BC, MEDICARE ==
[~2020-08-18] VITALS: Ht 170.2 cm; Wt 102.1 kg
[2020-08-18] MEDS ORDERED: CEFEPIME 1GM/NS 0.9% 50 ML 50 ML IV STA (12:28)
[2020-08-18] MEDS ORDERED: ASPIRIN 81 MG CHEW TAB PO ONE (12:30)
[2020-08-18 12:39] LABS: BASOPHILS % 0.2 % (0.0-1.0); EOSINOPHILS # (AUTO) 0.1 (0.0-0.4); EOSINOPHILS % 0.6 % (0.0-6.0); HEMOGLOBIN 8.2 g/dL (14.0-18.0); LYMPHOCYTES # (AUTO) 0.4 (1.0-3.2); LYMPHOCYTES % 3.2 % (18.0-39.1); MEAN CORPUSCULAR HEMOGLOBIN 29.3 pg (28-32); MEAN CORPUSCULAR HGB CONC 28.3 g/dL (31-35); MEAN CORPUSCULAR VOLUME 103.6 fL (81-99); MONOCYTES # (AUTO) 0.8 (0.2-0.8); MONOCYTES % 7.5 % (4.4-11.3); NEUTROPHILS # (AUTO) 9.4 (2.1-6.9); NEUTROPHILS % 86.8 % (38.7-80.0); PLATELET COUNT 161 x10e3/uL (140-360); RED CELL DISTRIBUTION WIDTH 18.6 % (11.7-14.4)
[2020-08-18] MEDS ORDERED: VANCOMYCIN 1GM/NS 250 ML 250 ML IV ONE (13:00)
[2020-08-18 13:02] LABS: ALBUMIN 2.9 g/dL (3.5-5.0); ALBUMIN/GLOBULIN RATIO 0.9 (0.8-2.0); ANION GAP 15.1 mmol/L (8-16); CREATININE, SERUM 1.74 mg/dL (0.72-1.25); POTASSIUM 4.1 mmol/L (3.5-5.1)
[2020-08-18 13:08] LABS: CREATINE KINASE MB 3.5 ng/mL (0-5.0)
[2020-08-18 15:34] VITALS: BP 112/75
[2020-08-18 15:50] VITALS: BP 120/82
[2020-08-18 20:00] VITALS: BP 116/80
[2020-08-18 21:00] VITALS: BP 116/80
[2020-08-18] MEDS ORDERED: ACETAMINOPHEN 325 MG TAB PO PRN (21:30)
[2020-08-18] MEDS ORDERED: ONDANSETRON HCL INJ 2MG/ML 2ML 2 MG/ML VIAL IV PRN ×2 (21:30)
[2020-08-18] MEDS ORDERED: DEXTROSE 50% SYRINGE 50 ML IV PRN (21:30)
[2020-08-18] MEDS ORDERED: LIDOCAINE 4% PATCH TP PRN (22:30)
[2020-08-18 22:32] LABS: CLARITY,URINE CLEAR (CLEAR); COLOR,URINE YELLOW (YELLOW)
[2020-08-18 22:33] LABS: BILIRUBIN,URINE NEGATIVE (NEGATIVE); KETONES,URINE NEGATIVE (NEGATIVE); LEUKOCYTE ESTERASE ,URINE NEGATIVE (NEGATIVE); NITRITE,URINE POSITIVE (NEGATIVE); PROTEIN,URINE DIPSTICK 1+ (NEGATIVE); URINE UROBILINOGEN 0.2 mg/dL (0.2 - 1)
[2020-08-18 22:35] LABS: BACTERIA,URINE MODERATE /HPF; EPITHELIAL CELLS,URINE FEW /LPF; RBC,URINE 0-5 /HPF (0-5)
[2020-08-18] MEDS: GABAPENTIN 300 MG CAP PO SCH (23:09)
[2020-08-18] MEDS: ALBUTEROL/IPRATROPIUM 3 ML NEB NEB SCH (23:10)
[2020-08-18] MEDS: TAMSULOSIN HCL 0.4 MG CAP PO SCH (23:10)
[2020-08-18] MEDS: BUMETANIDE 1 MG TAB PO SCH (23:10)
[2020-08-19] VITALS (8 sets, daily range): BP systolic 92–129; BP diastolic 58–76
[2020-08-19] MEDS: ALBUTEROL/IPRATROPIUM 3 ML NEB NEB SCH ×6 (03:02→22:18)
[2020-08-19 05:46] LABS: BASOPHILS % 0.4 % (0.0-1.0); EOSINOPHILS # (AUTO) 0.1 (0.0-0.4); EOSINOPHILS % 1.2 % (0.0-6.0); HEMATOCRIT 28.4 % (38.2-49.6); HEMOGLOBIN 8.2 g/dL (14.0-18.0); LYMPHOCYTES # (AUTO) 0.7 (1.0-3.2); LYMPHOCYTES % 7.3 % (18.0-39.1); MEAN CORPUSCULAR HEMOGLOBIN 30.6 pg (28-32); MEAN CORPUSCULAR HGB CONC 28.9 g/dL (31-35); MONOCYTES # (AUTO) 0.6 (0.2-0.8); MONOCYTES % 5.8 % (4.4-11.3); NEUTROPHILS # (AUTO) 8.1 (2.1-6.9); PLATELET COUNT 171 x10e3/uL (140-360); RED BLOOD COUNT 2.68 x10e6/uL (4.3-5.7); RED CELL DISTRIBUTION WIDTH 18.6 % (11.7-14.4)
[2020-08-19 06:10] LABS: CREATINE KINASE MB 2.1 ng/mL (0-5.0)
[2020-08-19 06:26] LABS: ALBUMIN/GLOBULIN RATIO 0.9 (0.8-2.0); CREATININE, SERUM 1.51 mg/dL (0.72-1.25)
[2020-08-19] MEDS: INSULIN LISPRO 100 UNIT/1 ML 3ML VIAL SQ SCH ×4 (07:30→19:34)
[2020-08-19] MEDS: LEVOTHYROXINE SODIUM 50 MCG TAB PO SCH (09:01)
[2020-08-19] MEDS: FAMOTIDINE 20 MG TAB PO SCH (09:01)
[2020-08-19] MEDS: ROPINIROLE HCL 0.25 MG TAB PO SCH ×2 (09:02→17:22)
[2020-08-19] MEDS: TICAGRELOR 90 MG TABLET PO SCH ×2 (09:02→17:22)
[2020-08-19] MEDS: BUMETANIDE 1 MG TAB PO SCH ×2 (09:02→17:22)
[2020-08-19] MEDS: LIOTHYRONINE SODIUM 5 MCG TAB PO SCH (09:02)
[2020-08-19] MEDS: CLOPIDOGREL BISULFATE 75 MG TAB PO SCH (09:02)
[2020-08-19] MEDS: DOCUSATE SODIUM 100 MG CAP PO SCH ×2 (09:02→17:22)
[2020-08-19] MEDS: FERROUS SULFATE 325 MG TAB PO SCH (09:02)
[2020-08-19] MEDS: BISACODYL 5 MG TAB EC PO SCH (09:02)
[2020-08-19] MEDS: TAMSULOSIN HCL 0.4 MG CAP PO SCH ×2 (09:02→17:22)
[2020-08-19] MEDS: FOLIC ACID 1 MG TAB PO SCH ×2 (09:02→17:22)
[2020-08-19] MEDS: METOPROLOL TARTRATE 25 MG TAB PO SCH ×2 (09:02→17:22)
[2020-08-19] MEDS: METOLAZONE 5 MG TAB PO SCH (09:02)
[2020-08-19 09:47] LABS: PLATELET ESTIMATE ADEQUATE; PLATELET MORPHOLOGY COMMENT NORMAL
[2020-08-19] MEDS ORDERED: CEFEPIME HCL 1 GM VIAL IV SCH (10:30)
[2020-08-19] MEDS: CEFEPIME 1GM/NS 0.9% 50 ML 50 ML IV SCH ×2 (12:00→21:58)
[2020-08-19] MEDS: GUAIFENESIN 600 MG TAB PO PRN (17:22)
[2020-08-19] MEDS: SERTRALINE HCL 50 MG TAB PO SCH (20:16)
[2020-08-19] MEDS: PRAMIPEXOLE DIHYDROCHLORIDE 0.25 MG TAB PO SCH (20:16)
[2020-08-19] MEDS: ALLOPURINOL 300 MG TAB PO SCH (20:16)
[2020-08-19] MEDS: GABAPENTIN 300 MG CAP PO SCH (20:16)
[2020-08-19] MEDS: LATANOPROST(OPTH) 2.5 ML BTL OU SCH (20:18)
[2020-08-19] MEDS ORDERED: DIGOXIN INJ 0.25 MG/ML 2 ML AMP IV ONE (21:45)
[2020-08-20] VITALS (7 sets, daily range): BP systolic 100–140; BP diastolic 59–78
[2020-08-20] MEDS: ALBUTEROL/IPRATROPIUM 3 ML NEB NEB SCH ×6 (02:10→22:55)
[2020-08-20 06:07] LABS: BASOPHILS # (AUTO) 0.1 (0.0-0.1); BASOPHILS % 0.5 % (0.0-1.0); EOSINOPHILS # (AUTO) 0.2 (0.0-0.4); EOSINOPHILS % 1.8 % (0.0-6.0); HEMATOCRIT 26.7 % (38.2-49.6); HEMOGLOBIN 7.7 g/dL (14.0-18.0); LYMPHOCYTES # (AUTO) 0.7 (1.0-3.2); LYMPHOCYTES % 6.7 % (18.0-39.1); MEAN CORPUSCULAR HEMOGLOBIN 29.5 pg (28-32); MEAN CORPUSCULAR HGB CONC 28.8 g/dL (31-35); MEAN CORPUSCULAR VOLUME 102.3 fL (81-99); MONOCYTES # (AUTO) 0.8 (0.2-0.8); MONOCYTES % 6.9 % (4.4-11.3); NEUTROPHILS # (AUTO) 8.9 (2.1-6.9); NEUTROPHILS % 82.4 % (38.7-80.0); PLATELET COUNT 150 x10e3/uL (140-360); RED BLOOD COUNT 2.61 x10e6/uL (4.3-5.7); RED CELL DISTRIBUTION WIDTH 18.6 % (11.7-14.4)
[2020-08-20] MEDS: INSULIN LISPRO 100 UNIT/1 ML 3ML VIAL SQ SCH ×2 (07:30→11:30)
[2020-08-20 07:42] LABS: ALBUMIN 2.3 g/dL (3.5-5.0); ALBUMIN/GLOBULIN RATIO 0.7 (0.8-2.0); ANION GAP 13.8 mmol/L (8-16); CALCIUM 8.5 mg/dL (8.4-10.2); CREATININE, SERUM 1.54 mg/dL (0.72-1.25)
[2020-08-20 07:48] LABS: POTASSIUM 2.8 mmol/L (3.5-5.1)
[2020-08-20] MEDS ORDERED: POTASSIUM CHLORIDE 20MEQ/15ML UDC NG ONE (08:45)
[2020-08-20] MEDS: LIOTHYRONINE SODIUM 5 MCG TAB PO SCH (09:30)
[2020-08-20] MEDS: METOLAZONE 5 MG TAB PO SCH (09:30)
[2020-08-20] MEDS: FOLIC ACID 1 MG TAB PO SCH ×2 (09:30→16:50)
[2020-08-20] MEDS: FERROUS SULFATE 325 MG TAB PO SCH (09:30)
[2020-08-20] MEDS: TAMSULOSIN HCL 0.4 MG CAP PO SCH ×2 (09:30→16:50)
[2020-08-20] MEDS: DOCUSATE SODIUM 100 MG CAP PO SCH ×2 (09:30→16:50)
[2020-08-20] MEDS: TICAGRELOR 90 MG TABLET PO SCH ×2 (09:30→16:50)
[2020-08-20] MEDS: CLOPIDOGREL BISULFATE 75 MG TAB PO SCH (09:30)
[2020-08-20] MEDS: ROPINIROLE HCL 0.25 MG TAB PO SCH ×2 (09:30→16:50)
[2020-08-20] MEDS: BISACODYL 5 MG TAB EC PO SCH (09:30)
[2020-08-20] MEDS: CEFEPIME 1GM/NS 0.9% 50 ML 50 ML IV SCH ×2 (09:30→20:30)
[2020-08-20] MEDS: BUMETANIDE 1 MG TAB PO SCH ×2 (09:30→18:42)
[2020-08-20] MEDS: LEVOTHYROXINE SODIUM 50 MCG TAB PO SCH (09:45)
[2020-08-20] MEDS: FAMOTIDINE 20 MG TAB PO SCH (09:45)
[2020-08-20] MEDS: METOPROLOL TARTRATE 25 MG TAB PO SCH ×2 (11:00→16:50)
[2020-08-20] MEDS: LIDOCAINE 4% PATCH TP SCH (12:15)
[2020-08-20] MEDS ORDERED: ONDANSETRON HCL 4 MG ORAL DISINTEGRATING TAB PO PRN (13:45)
[2020-08-20] MEDS ORDERED: POTASSIUM CHLORIDE 20 MEQ TAB CR PO ONE (17:00)
[2020-08-20] MEDS: LATANOPROST(OPTH) 2.5 ML BTL OU SCH (20:29)
[2020-08-20] MEDS: PRAMIPEXOLE DIHYDROCHLORIDE 0.25 MG TAB PO SCH (20:29)
[2020-08-20] MEDS: GABAPENTIN 300 MG CAP PO SCH (20:30)
[2020-08-20] MEDS: SERTRALINE HCL 50 MG TAB PO SCH (20:30)
[2020-08-20] MEDS: ALLOPURINOL 300 MG TAB PO SCH (20:30)
[2020-08-20] MEDS: ALPRAZOLAM 0.5 MG TAB PO SCH (22:09)
[2020-08-21] VITALS (8 sets, daily range): BP systolic 93–129; BP diastolic 51–73
[2020-08-21] MEDS: ALBUTEROL/IPRATROPIUM 3 ML NEB NEB SCH ×6 (02:47→23:20)
[2020-08-21] MEDS: FAMOTIDINE 20 MG TAB PO SCH (08:25)
[2020-08-21] MEDS: BISACODYL 5 MG TAB EC PO SCH (08:25)
[2020-08-21] MEDS: LEVOTHYROXINE SODIUM 50 MCG TAB PO SCH (08:25)
[2020-08-21] MEDS: TICAGRELOR 90 MG TABLET PO SCH ×2 (08:25→16:25)
[2020-08-21] MEDS: BUMETANIDE 1 MG TAB PO SCH ×2 (08:25→16:26)
[2020-08-21] MEDS: LIOTHYRONINE SODIUM 5 MCG TAB PO SCH (08:25)
[2020-08-21] MEDS: DOCUSATE SODIUM 100 MG CAP PO SCH ×2 (08:25→16:26)
[2020-08-21] MEDS: FERROUS SULFATE 325 MG TAB PO SCH (08:25)
[2020-08-21] MEDS: FOLIC ACID 1 MG TAB PO SCH ×2 (08:26→16:26)
[2020-08-21] MEDS: METOPROLOL TARTRATE 25 MG TAB PO SCH ×2 (08:27→17:17)
[2020-08-21] MEDS: CLOPIDOGREL BISULFATE 75 MG TAB PO SCH ×3 (08:28→14:27)
[2020-08-21] MEDS: ROPINIROLE HCL 0.25 MG TAB PO SCH ×2 (08:28→16:26)
[2020-08-21] MEDS: METOLAZONE 5 MG TAB PO SCH (08:28)
[2020-08-21] MEDS: TAMSULOSIN HCL 0.4 MG CAP PO SCH ×2 (08:28→16:26)
[2020-08-21] MEDS: CEFEPIME 1GM/NS 0.9% 50 ML 50 ML IV SCH ×2 (10:26→19:53)
[2020-08-21] MEDS: LIDOCAINE 4% PATCH TP SCH (10:27)
[2020-08-21] MEDS ORDERED: HYDROMORPHONE HCL 8 MG PO PRN (11:45)
[2020-08-21] MEDS: ALPRAZOLAM 0.5 MG TAB PO SCH ×2 (12:10→19:53)
[2020-08-21] MEDS: HYDROCODONE/APAP 5MG-325MG TAB PO PRN ×2 (12:11→19:45)
[2020-08-21 16:22] LABS: ANION GAP 15.6 mmol/L (8-16); CALCIUM 9.1 mg/dL (8.4-10.2); CREATININE, SERUM 1.65 mg/dL (0.72-1.25); POTASSIUM 3.6 mmol/L (3.5-5.1)
[2020-08-21] MEDS: PRAMIPEXOLE DIHYDROCHLORIDE 0.25 MG TAB PO SCH (19:52)
[2020-08-21] MEDS: SERTRALINE HCL 50 MG TAB PO SCH (19:52)
[2020-08-21] MEDS: GABAPENTIN 300 MG CAP PO SCH (19:52)
[2020-08-21] MEDS: LATANOPROST(OPTH) 2.5 ML BTL OU SCH (19:52)
[2020-08-21] MEDS: ALLOPURINOL 300 MG TAB PO SCH (19:53)
[2020-08-22] VITALS (7 sets, daily range): BP systolic 78–116; BP diastolic 50–76
[2020-08-22] MEDS: ALPRAZOLAM 0.5 MG TAB PO SCH ×3 (00:08→20:05)
[2020-08-22] MEDS: METOPROLOL TARTRATE 25 MG TAB PO SCH ×5 (00:09→18:00)
[2020-08-22] MEDS: ALBUTEROL/IPRATROPIUM 3 ML NEB NEB SCH ×6 (02:55→19:50)
[2020-08-22] MEDS: HYDROCODONE/APAP 5MG-325MG TAB PO PRN ×3 (05:35→20:05)
[2020-08-22 06:03] LABS: BASOPHILS % 0.5 % (0.0-1.0); EOSINOPHILS # (AUTO) 0.2 (0.0-0.4); EOSINOPHILS % 3.3 % (0.0-6.0); HEMOGLOBIN 7.4 g/dL (14.0-18.0); LYMPHOCYTES # (AUTO) 0.5 (1.0-3.2); LYMPHOCYTES % 8.7 % (18.0-39.1); MEAN CORPUSCULAR HEMOGLOBIN 28.8 pg (28-32); MEAN CORPUSCULAR HGB CONC 28.5 g/dL (31-35); MEAN CORPUSCULAR VOLUME 101.2 fL (81-99); MONOCYTES # (AUTO) 0.5 (0.2-0.8); NEUTROPHILS # (AUTO) 4.5 (2.1-6.9); NEUTROPHILS % 73.3 % (38.7-80.0); PLATELET COUNT 170 x10e3/uL (140-360); RED BLOOD COUNT 2.57 x10e6/uL (4.3-5.7); RED CELL DISTRIBUTION WIDTH 18.6 % (11.7-14.4)
[2020-08-22 06:21] LABS: ALBUMIN 2.1 g/dL (3.5-5.0); ALBUMIN/GLOBULIN RATIO 0.7 (0.8-2.0); ANION GAP 13.4 mmol/L (8-16); CREATININE, SERUM 1.61 mg/dL (0.72-1.25); POTASSIUM 3.4 mmol/L (3.5-5.1)
[2020-08-22 08:23] LABS: EOSINOPHILS % (MANUAL) 1 % (0-7); LYMPHOCYTES % (MANUAL) 13 % (19-48); MONOCYTES % (MANUAL) 7 % (3.4-9.0); MYELOCYTES % (MANUAL) 1 % (0-0); NEUTROPHILS % (MANUAL) 78 % (40-74); NUCLEATED RED BLOOD CELLS 4
[2020-08-22 08:24] LABS: ANISOCYTOSIS SLIGHT; HYPOCHROMASIA SLIGHT
[2020-08-22 08:25] LABS: PLATELET ESTIMATE ADEQUATE; PLATELET MORPHOLOGY COMMENT NORMAL; RBC MORPHOLOGY COMMENT NORMAL
[2020-08-22] MEDS: FOLIC ACID 1 MG TAB PO SCH ×2 (08:41→17:43)
[2020-08-22] MEDS: DOCUSATE SODIUM 100 MG CAP PO SCH ×2 (08:42→17:42)
[2020-08-22] MEDS: LEVOTHYROXINE SODIUM 50 MCG TAB PO SCH (08:42)
[2020-08-22] MEDS: BUMETANIDE 1 MG TAB PO SCH ×2 (08:42→17:42)
[2020-08-22] MEDS: ROPINIROLE HCL 0.25 MG TAB PO SCH ×2 (08:42→17:43)
[2020-08-22] MEDS: LIOTHYRONINE SODIUM 5 MCG TAB PO SCH (08:43)
[2020-08-22] MEDS: FAMOTIDINE 20 MG TAB PO SCH (08:44)
[2020-08-22] MEDS: CLOPIDOGREL BISULFATE 75 MG TAB PO SCH (08:44)
[2020-08-22] MEDS: METOLAZONE 5 MG TAB PO SCH (08:44)
[2020-08-22] MEDS: TICAGRELOR 90 MG TABLET PO SCH ×2 (08:45→17:42)
[2020-08-22] MEDS: FERROUS SULFATE 325 MG TAB PO SCH (08:45)
[2020-08-22] MEDS: BISACODYL 5 MG TAB EC PO SCH (08:45)
[2020-08-22] MEDS: TAMSULOSIN HCL 0.4 MG CAP PO SCH ×2 (08:45→17:43)
[2020-08-22] MEDS: CEFEPIME 1GM/NS 0.9% 50 ML 50 ML IV SCH ×2 (10:27→20:04)
[2020-08-22] MEDS: LIDOCAINE 4% PATCH TP SCH (13:36)
[2020-08-22] MEDS ORDERED: POTASSIUM CHLORIDE 20 MEQ TAB CR PO NR (19:15)
[2020-08-22] MEDS: SERTRALINE HCL 50 MG TAB PO SCH (20:04)
[2020-08-22] MEDS: LATANOPROST(OPTH) 2.5 ML BTL OU SCH (20:04)
[2020-08-22] MEDS: PRAMIPEXOLE DIHYDROCHLORIDE 0.25 MG TAB PO SCH (20:04)
[2020-08-22] MEDS: ALLOPURINOL 300 MG TAB PO SCH (20:04)
[2020-08-22] MEDS: GABAPENTIN 300 MG CAP PO SCH (20:04)
[2020-08-22] MEDS ORDERED: ALBUMIN 25% 25GM 100ML 0.25 GM/ML BTL IV ONE (23:30)
[2020-08-23] VITALS (20 sets, daily range): BP systolic 77–136; BP diastolic 47–85
[2020-08-23] MEDS ORDERED: SODIUM CHLORIDE 0.9% 250ML 250 ML IV ONE
[2020-08-23] MEDS ORDERED: FUROSEMIDE INJ 10 MG/ML 2 ML VIAL IV PRN
[2020-08-23] MEDS ORDERED: ALBUMIN 25% 12.5GM 50ML 100 ML IV ONE (00:24)
[2020-08-23] MEDS ORDERED: SODIUM CHLORIDE 0.9% 250ML 250 ML ONE (02:12)
[2020-08-23] MEDS: ALBUTEROL/IPRATROPIUM 3 ML NEB NEB SCH ×6 (03:50→23:35)
[2020-08-23 08:03] LABS: BASOPHILS % 0.5 % (0.0-1.0); EOSINOPHILS # (AUTO) 0.3 (0.0-0.4); EOSINOPHILS % 4.2 % (0.0-6.0); HEMATOCRIT 26.9 % (38.2-49.6); HEMOGLOBIN 7.8 g/dL (14.0-18.0); LYMPHOCYTES # (AUTO) 0.6 (1.0-3.2); LYMPHOCYTES % 9.7 % (18.0-39.1); MONOCYTES # (AUTO) 0.4 (0.2-0.8); MONOCYTES % 6.8 % (4.4-11.3); NEUTROPHILS # (AUTO) 4.4 (2.1-6.9); NEUTROPHILS % 73.5 % (38.7-80.0); PLATELET COUNT 183 x10e3/uL (140-360); RED BLOOD COUNT 2.69 x10e6/uL (4.3-5.7); RED CELL DISTRIBUTION WIDTH 18.5 % (11.7-14.4)
[2020-08-23 08:33] LABS: ANION GAP 15.4 mmol/L (8-16); CALCIUM 8.9 mg/dL (8.4-10.2); CREATININE, SERUM 1.88 mg/dL (0.72-1.25); MAGNESIUM 2.1 MG/DL (1.3-2.1); PHOSPHORUS 3.3 MG/DL (2.3-4.7); POTASSIUM 3.4 mmol/L (3.5-5.1)
[2020-08-23 08:39] LABS: EOSINOPHILS % (MANUAL) 4 % (0-7); LYMPHOCYTES % (MANUAL) 11 % (19-48); MONOCYTES % (MANUAL) 8 % (3.4-9.0); NEUTROPHILS % (MANUAL) 77 % (40-74); NUCLEATED RED BLOOD CELLS 2
[2020-08-23 08:40] LABS: ANISOCYTOSIS FEW; PLATELET ESTIMATE ADEQUATE; PLATELET MORPHOLOGY COMMENT NORMAL; POLYCHROMASIA FEW; RBC MORPHOLOGY COMMENT ABNORMAL
[2020-08-23] MEDS: TICAGRELOR 90 MG TABLET PO SCH ×2 (08:42→20:40)
[2020-08-23] MEDS: FAMOTIDINE 20 MG TAB PO SCH (08:42)
[2020-08-23] MEDS: FERROUS SULFATE 325 MG TAB PO SCH (08:42)
[2020-08-23] MEDS: CLOPIDOGREL BISULFATE 75 MG TAB PO SCH (08:42)
[2020-08-23] MEDS: LEVOTHYROXINE SODIUM 50 MCG TAB PO SCH (08:45)
[2020-08-23] MEDS: BUMETANIDE 1 MG TAB PO SCH ×2 (08:45→15:44)
[2020-08-23] MEDS: DOCUSATE SODIUM 100 MG CAP PO SCH ×2 (09:00→20:41)
[2020-08-23] MEDS: BISACODYL 5 MG TAB EC PO SCH (09:00)
[2020-08-23] MEDS: TAMSULOSIN HCL 0.4 MG CAP PO SCH ×2 (09:00→20:42)
[2020-08-23] MEDS: ROPINIROLE HCL 0.25 MG TAB PO SCH ×2 (09:00→20:42)
[2020-08-23] MEDS: METOLAZONE 5 MG TAB PO SCH (09:00)
[2020-08-23] MEDS: FOLIC ACID 1 MG TAB PO SCH ×2 (09:03→15:47)
[2020-08-23] MEDS: CEFEPIME 1GM/NS 0.9% 50 ML 50 ML IV SCH ×2 (10:12→22:20)
[2020-08-23] MEDS: LIOTHYRONINE SODIUM 5 MCG TAB PO SCH (10:12)
[2020-08-23] MEDS: LIDOCAINE 4% PATCH TP SCH (15:43)
[2020-08-23] MEDS: GABAPENTIN 300 MG CAP PO SCH (20:42)
[2020-08-23] MEDS: PRAMIPEXOLE DIHYDROCHLORIDE 0.25 MG TAB PO SCH (20:42)
[2020-08-23] MEDS: SERTRALINE HCL 50 MG TAB PO SCH (20:43)
[2020-08-23] MEDS: ALLOPURINOL 300 MG TAB PO SCH (20:43)
[2020-08-23] MEDS: LATANOPROST(OPTH) 2.5 ML BTL OU SCH (21:10)
[2020-08-24] VITALS (10 sets, daily range): BP systolic 96–123; BP diastolic 50–80
[2020-08-24] MEDS: ALBUTEROL/IPRATROPIUM 3 ML NEB NEB SCH ×6 (03:00→22:45)
[2020-08-24 04:48] LABS: BASOPHILS % 0.6 % (0.0-1.0); EOSINOPHILS # (AUTO) 0.2 (0.0-0.4); EOSINOPHILS % 3.7 % (0.0-6.0); HEMATOCRIT 27.2 % (38.2-49.6); HEMOGLOBIN 7.9 g/dL (14.0-18.0); LYMPHOCYTES # (AUTO) 0.6 (1.0-3.2); LYMPHOCYTES % 9.1 % (18.0-39.1); MEAN CORPUSCULAR HEMOGLOBIN 28.9 pg (28-32); MEAN CORPUSCULAR VOLUME 99.6 fL (81-99); MONOCYTES # (AUTO) 0.4 (0.2-0.8); MONOCYTES % 6.8 % (4.4-11.3); NEUTROPHILS # (AUTO) 4.6 (2.1-6.9); NEUTROPHILS % 74.1 % (38.7-80.0); PLATELET COUNT 209 x10e3/uL (140-360); RED BLOOD COUNT 2.73 x10e6/uL (4.3-5.7); RED CELL DISTRIBUTION WIDTH 18.1 % (11.7-14.4)
[2020-08-24 05:15] LABS: ANION GAP 16.4 mmol/L (8-16); CALCIUM 9.4 mg/dL (8.4-10.2); CREATININE, SERUM 1.63 mg/dL (0.72-1.25); POTASSIUM 3.4 mmol/L (3.5-5.1)
[2020-08-24 06:27] LABS: EOSINOPHILS % (MANUAL) 3 % (0-7); LYMPHOCYTES % (MANUAL) 11 % (19-48); MONOCYTES % (MANUAL) 7 % (3.4-9.0); MYELOCYTES % (MANUAL) 2 % (0-0); NEUTROPHILS % (MANUAL) 77 % (40-74); NUCLEATED RED BLOOD CELLS 1
[2020-08-24 06:28] LABS: POLYCHROMASIA FEW
[2020-08-24 06:29] LABS: ANISOCYTOSIS SLIGHT; SCHISTOCYTES RARE; STOMATOCYTES SLIGHT
[2020-08-24 06:30] LABS: PLATELET ESTIMATE ADEQUATE; PLATELET MORPHOLOGY COMMENT NORMAL; RBC MORPHOLOGY COMMENT ABNORMAL
[2020-08-24] MEDS: FAMOTIDINE 20 MG TAB PO SCH (07:54)
[2020-08-24] MEDS: LIOTHYRONINE SODIUM 5 MCG TAB PO SCH (07:55)
[2020-08-24] MEDS: TICAGRELOR 90 MG TABLET PO SCH ×2 (07:55→21:25)
[2020-08-24] MEDS: BUMETANIDE 1 MG TAB PO SCH ×2 (07:55→17:00)
[2020-08-24] MEDS: FOLIC ACID 1 MG TAB PO SCH ×2 (07:55→17:00)
[2020-08-24] MEDS: CLOPIDOGREL BISULFATE 75 MG TAB PO SCH (07:55)
[2020-08-24] MEDS: LEVOTHYROXINE SODIUM 50 MCG TAB PO SCH (07:55)
[2020-08-24] MEDS: FERROUS SULFATE 325 MG TAB PO SCH (07:55)
[2020-08-24] MEDS: BISACODYL 5 MG TAB EC PO SCH ×2 (09:00→15:19)
[2020-08-24] MEDS: ROPINIROLE HCL 0.25 MG TAB PO SCH ×2 (09:00→21:25)
[2020-08-24] MEDS: DOCUSATE SODIUM 100 MG CAP PO SCH ×2 (09:00→21:25)
[2020-08-24] MEDS: TAMSULOSIN HCL 0.4 MG CAP PO SCH ×2 (09:00→21:25)
[2020-08-24] MEDS: METOLAZONE 5 MG TAB PO SCH (11:02)
[2020-08-24] MEDS: CEFEPIME 1GM/NS 0.9% 50 ML 50 ML IV SCH ×2 (11:02→21:52)
[2020-08-24] MEDS: ALPRAZOLAM 0.5 MG TAB PO SCH (11:27)
[2020-08-24] MEDS ORDERED: ACETAZOLAMIDE SODIUM 500 MG/VIAL IV ONE (13:00)
[2020-08-24] MEDS: LIDOCAINE 4% PATCH TP SCH (15:19)
[2020-08-24] MEDS: PRAMIPEXOLE DIHYDROCHLORIDE 0.25 MG TAB PO SCH (21:25)
[2020-08-24] MEDS: SERTRALINE HCL 50 MG TAB PO SCH (21:25)
[2020-08-24] MEDS: GABAPENTIN 300 MG CAP PO SCH (21:25)
[2020-08-24] MEDS: LATANOPROST(OPTH) 2.5 ML BTL OU SCH (21:25)
[2020-08-24] MEDS: ALLOPURINOL 300 MG TAB PO SCH (21:25)
[2020-08-25] VITALS: BP 107/60
[2020-08-25] MEDS: ALBUTEROL/IPRATROPIUM 3 ML NEB NEB SCH ×4 (03:00→15:37)
[2020-08-25 04:00] VITALS: BP 113/65
[2020-08-25 06:01] LABS: BASOPHILS % 0.3 % (0.0-1.0); EOSINOPHILS # (AUTO) 0.2 (0.0-0.4); EOSINOPHILS % 3.2 % (0.0-6.0); HEMATOCRIT 27.6 % (38.2-49.6); HEMOGLOBIN 7.9 g/dL (14.0-18.0); LYMPHOCYTES # (AUTO) 0.6 (1.0-3.2); MEAN CORPUSCULAR HEMOGLOBIN 28.7 pg (28-32); MEAN CORPUSCULAR HGB CONC 28.6 g/dL (31-35); MEAN CORPUSCULAR VOLUME 100.4 fL (81-99); MONOCYTES # (AUTO) 0.5 (0.2-0.8); MONOCYTES % 7.4 % (4.4-11.3); NEUTROPHILS # (AUTO) 4.6 (2.1-6.9); NEUTROPHILS % 74.8 % (38.7-80.0); PLATELET COUNT 181 x10e3/uL (140-360); RED BLOOD COUNT 2.75 x10e6/uL (4.3-5.7); RED CELL DISTRIBUTION WIDTH 18.2 % (11.7-14.4)
[2020-08-25 06:20] LABS: ALBUMIN 2.4 g/dL (3.5-5.0); ALBUMIN/GLOBULIN RATIO 0.8 (0.8-2.0); ANION GAP 15.1 mmol/L (8-16); CALCIUM 9.5 mg/dL (8.4-10.2); CREATININE, SERUM 1.55 mg/dL (0.72-1.25); POTASSIUM 3.1 mmol/L (3.5-5.1)
[2020-08-25 07:34] VITALS: BP 100/60
[2020-08-25 07:37] VITALS: BP 100/60
[2020-08-25] MEDS ORDERED: POTASSIUM CHLORIDE 20 MEQ TAB CR PO ONE (07:40)
[2020-08-25] MEDS: TICAGRELOR 90 MG TABLET PO SCH ×2 (08:09→21:31)
[2020-08-25] MEDS: METOLAZONE 5 MG TAB PO SCH (08:09)
[2020-08-25] MEDS: DOCUSATE SODIUM 100 MG CAP PO SCH ×2 (08:09→21:31)
[2020-08-25] MEDS: CLOPIDOGREL BISULFATE 75 MG TAB PO SCH (08:09)
[2020-08-25] MEDS: LIOTHYRONINE SODIUM 5 MCG TAB PO SCH (08:09)
[2020-08-25] MEDS: ROPINIROLE HCL 0.25 MG TAB PO SCH ×2 (08:09→21:31)
[2020-08-25] MEDS: BUMETANIDE 1 MG TAB PO SCH (08:09)
[2020-08-25] MEDS: FAMOTIDINE 20 MG TAB PO SCH (08:09)
[2020-08-25] MEDS: TAMSULOSIN HCL 0.4 MG CAP PO SCH ×2 (08:09→21:31)
[2020-08-25] MEDS: LEVOTHYROXINE SODIUM 50 MCG TAB PO SCH (08:09)
[2020-08-25] MEDS: FOLIC ACID 1 MG TAB PO SCH ×2 (08:09→17:04)
[2020-08-25] MEDS: FERROUS SULFATE 325 MG TAB PO SCH (08:10)
[2020-08-25] MEDS ORDERED: POTASSIUM CHLORIDE 20MEQ/15ML UDC NG ONE (09:00)
[2020-08-25] MEDS: CEFEPIME 1GM/NS 0.9% 50 ML 50 ML IV SCH ×2 (09:29→21:31)
[2020-08-25 11:40] VITALS: BP 103/69
[2020-08-25] MEDS: LIDOCAINE 4% PATCH TP SCH (11:46)
[2020-08-25] MEDS ORDERED: ACETAZOLAMIDE SODIUM 500 MG/VIAL IV ONE ×2 (12:30→17:00)
[2020-08-25] MEDS ORDERED: POTASSIUM CHLORIDE 10MEQ EA PO ONE (12:30)
[2020-08-25] MEDS ORDERED: DIGOXIN INJ 0.25 MG/ML 2 ML AMP IV ONE ×2 (12:45→16:45)
[2020-08-25] MEDS ORDERED: POTASSIUM CHLORIDE 20MEQ/15ML UDC PEG ONE (16:45)
[2020-08-25] MEDS ORDERED: BUMETANIDE 1 MG TAB PO SCH (17:00)
[2020-08-25 17:24] LABS: ABG PH 7.57 (7.35-7.45)
[2020-08-25 17:25] LABS: ABG HCO3 49 mmol/L (22-26); ABG PCO2 54 mmHg (35-45); ABG PO2 62 mmHg (80-105); ABG TCO2 > 50
[2020-08-25 20:00] VITALS: BP 119/75
[2020-08-25] MEDS: SERTRALINE HCL 50 MG TAB PO SCH (21:31)
[2020-08-25] MEDS: ALLOPURINOL 300 MG TAB PO SCH (21:31)
[2020-08-25] MEDS: LATANOPROST(OPTH) 2.5 ML BTL OU SCH (21:31)
[2020-08-25] MEDS: GABAPENTIN 300 MG CAP PO SCH (21:31)
[2020-08-25] MEDS: PRAMIPEXOLE DIHYDROCHLORIDE 0.25 MG TAB PO SCH (21:31)
[2020-08-25] MEDS: HEPARIN SOD (PORCINE) 5,000 UNIT/ML VIAL SC SCH (21:32)
[2020-08-26] VITALS (8 sets, daily range): BP systolic 99–134; BP diastolic 58–111
[2020-08-26 04:58] LABS: BASOPHILS % 0.7 % (0.0-1.0); EOSINOPHILS # (AUTO) 0.2 (0.0-0.4); EOSINOPHILS % 3.6 % (0.0-6.0); HEMATOCRIT 29.3 % (38.2-49.6); HEMOGLOBIN 8.3 g/dL (14.0-18.0); LYMPHOCYTES # (AUTO) 0.6 (1.0-3.2); LYMPHOCYTES % 10.3 % (18.0-39.1); MEAN CORPUSCULAR HEMOGLOBIN 29.1 pg (28-32); MEAN CORPUSCULAR HGB CONC 28.3 g/dL (31-35); MEAN CORPUSCULAR VOLUME 102.8 fL (81-99); MONOCYTES # (AUTO) 0.4 (0.2-0.8); MONOCYTES % 7.8 % (4.4-11.3); NEUTROPHILS % 72.7 % (38.7-80.0); PLATELET COUNT 181 x10e3/uL (140-360); RED BLOOD COUNT 2.85 x10e6/uL (4.3-5.7)
[2020-08-26 05:23] LABS: ALBUMIN 2.5 g/dL (3.5-5.0); ALBUMIN/GLOBULIN RATIO 0.8 (0.8-2.0); ANION GAP 16.2 mmol/L (8-16); CALCIUM 9.8 mg/dL (8.4-10.2); CREATININE, SERUM 1.6 mg/dL (0.72-1.25); POTASSIUM 3.2 mmol/L (3.5-5.1)
[2020-08-26] MEDS: ALBUTEROL/IPRATROPIUM 3 ML NEB NEB PRN ×4 (07:00→20:15)
[2020-08-26] MEDS: FOLIC ACID 1 MG TAB PO SCH ×2 (08:23→16:58)
[2020-08-26] MEDS: CLOPIDOGREL BISULFATE 75 MG TAB PO SCH (08:23)
[2020-08-26] MEDS: FAMOTIDINE 20 MG TAB PO SCH (08:25)
[2020-08-26] MEDS: LEVOTHYROXINE SODIUM 50 MCG TAB PO SCH (08:25)
[2020-08-26] MEDS: FERROUS SULFATE 325 MG TAB PO SCH (08:28)
[2020-08-26] MEDS: ROPINIROLE HCL 0.25 MG TAB PO SCH ×2 (08:28→20:02)
[2020-08-26] MEDS: TICAGRELOR 90 MG TABLET PO SCH ×2 (08:28→20:02)
[2020-08-26] MEDS: METOLAZONE 5 MG TAB PO SCH (08:28)
[2020-08-26] MEDS: BISACODYL 5 MG TAB EC PO SCH (08:28)
[2020-08-26] MEDS: ACETAZOLAMIDE 250 MG TAB PO SCH ×2 (08:28→16:58)
[2020-08-26] MEDS: LIOTHYRONINE SODIUM 5 MCG TAB PO SCH (08:28)
[2020-08-26] MEDS: DOCUSATE SODIUM 100 MG CAP PO SCH ×2 (08:28→20:02)
[2020-08-26] MEDS: TAMSULOSIN HCL 0.4 MG CAP PO SCH ×2 (08:28→20:02)
[2020-08-26] MEDS: LIDOCAINE 4% PATCH TP SCH (08:29)
[2020-08-26] MEDS: HEPARIN SOD (PORCINE) 5,000 UNIT/ML VIAL SC SCH ×2 (08:29→20:03)
[2020-08-26] MEDS: HYDROCODONE/APAP 5MG-325MG TAB PO PRN ×2 (08:30→20:02)
[2020-08-26] MEDS: CEFEPIME 1GM/NS 0.9% 50 ML 50 ML IV SCH ×2 (10:59→20:02)
[2020-08-26] MEDS ORDERED: POTASSIUM CHLORIDE 20 MEQ TAB CR PO SCH ×2 (12:45→14:45)
[2020-08-26] MEDS: POTASSIUM CHLORIDE 20MEQ/15ML UDC PO SCH ×2 (14:49→16:58)
[2020-08-26] MEDS: LATANOPROST(OPTH) 2.5 ML BTL OU SCH (20:02)
[2020-08-26] MEDS: ALLOPURINOL 300 MG TAB PO SCH (20:02)
[2020-08-26] MEDS: GABAPENTIN 300 MG CAP PO SCH (20:02)
[2020-08-26] MEDS: SERTRALINE HCL 50 MG TAB PO SCH (20:02)
[2020-08-26] MEDS: PRAMIPEXOLE DIHYDROCHLORIDE 0.25 MG TAB PO SCH (20:02)
[2020-08-26] MEDS: GUAIFENESIN 600 MG TAB PO PRN (20:02)
[2020-08-27] VITALS (7 sets, daily range): BP systolic 96–126; BP diastolic 51–74
[2020-08-27] MEDS: ALBUTEROL/IPRATROPIUM 3 ML NEB NEB PRN ×6 (00:45→23:35)
[2020-08-27] MEDS: HYDROCODONE/APAP 5MG-325MG TAB PO PRN ×2 (03:52→20:23)
[2020-08-27 05:02] LABS: BASOPHILS # (AUTO) 0.1 (0.0-0.1); BASOPHILS % 0.9 % (0.0-1.0); EOSINOPHILS # (AUTO) 0.2 (0.0-0.4); EOSINOPHILS % 3.5 % (0.0-6.0); HEMATOCRIT 30.5 % (38.2-49.6); HEMOGLOBIN 8.6 g/dL (14.0-18.0); LYMPHOCYTES # (AUTO) 0.9 (1.0-3.2); LYMPHOCYTES % 12.5 % (18.0-39.1); MEAN CORPUSCULAR HEMOGLOBIN 28.7 pg (28-32); MEAN CORPUSCULAR HGB CONC 28.2 g/dL (31-35); MEAN CORPUSCULAR VOLUME 101.7 fL (81-99); MONOCYTES # (AUTO) 0.6 (0.2-0.8); MONOCYTES % 8.1 % (4.4-11.3); NEUTROPHILS % 72.8 % (38.7-80.0); PLATELET COUNT 170 x10e3/uL (140-360); RED CELL DISTRIBUTION WIDTH 17.9 % (11.7-14.4)
[2020-08-27 05:22] LABS: ANION GAP 15.4 mmol/L (8-16); CALCIUM 9.6 mg/dL (8.4-10.2); CREATININE, SERUM 1.52 mg/dL (0.72-1.25); POTASSIUM 3.4 mmol/L (3.5-5.1)
[2020-08-27] MEDS: FAMOTIDINE 20 MG TAB PO SCH (07:44)
[2020-08-27] MEDS: LEVOTHYROXINE SODIUM 50 MCG TAB PO SCH (07:44)
[2020-08-27] MEDS: METOLAZONE 5 MG TAB PO SCH (08:19)
[2020-08-27] MEDS: FERROUS SULFATE 325 MG TAB PO SCH (08:19)
[2020-08-27] MEDS: TAMSULOSIN HCL 0.4 MG CAP PO SCH ×2 (08:19→20:23)
[2020-08-27] MEDS: ROPINIROLE HCL 0.25 MG TAB PO SCH (08:19)
[2020-08-27] MEDS: BISACODYL 5 MG TAB EC PO SCH (08:19)
[2020-08-27] MEDS: CLOPIDOGREL BISULFATE 75 MG TAB PO SCH (08:19)
[2020-08-27] MEDS: LIOTHYRONINE SODIUM 5 MCG TAB PO SCH (08:19)
[2020-08-27] MEDS: DOCUSATE SODIUM 100 MG CAP PO SCH ×2 (08:19→20:23)
[2020-08-27] MEDS: ACETAZOLAMIDE 250 MG TAB PO SCH ×2 (08:19→16:26)
[2020-08-27] MEDS: TICAGRELOR 90 MG TABLET PO SCH ×2 (08:19→20:23)
[2020-08-27] MEDS: FOLIC ACID 1 MG TAB PO SCH ×2 (08:19→16:26)
[2020-08-27] MEDS: HEPARIN SOD (PORCINE) 5,000 UNIT/ML VIAL SC SCH ×2 (08:20→20:24)
[2020-08-27] MEDS: CEFEPIME 1GM/NS 0.9% 50 ML 50 ML IV SCH ×2 (09:40→20:23)
[2020-08-27] MEDS: LIDOCAINE 4% PATCH TP SCH (12:30)
[2020-08-27] MEDS ORDERED: MAGNESIUM HYDROXIDE 30 ML UDC PO PRN (14:30)
[2020-08-27] MEDS: LATANOPROST(OPTH) 2.5 ML BTL OU SCH (20:23)
[2020-08-27] MEDS: ALLOPURINOL 300 MG TAB PO SCH (20:23)
[2020-08-27] MEDS: SERTRALINE HCL 50 MG TAB PO SCH (20:23)
[2020-08-27] MEDS: GUAIFENESIN 600 MG TAB PO PRN (20:23)
[2020-08-28] VITALS (7 sets, daily range): BP systolic 98–139; BP diastolic 56–98
[2020-08-28] MEDS: HYDROCODONE/APAP 5MG-325MG TAB PO PRN (03:39)
[2020-08-28 05:23] LABS: BASOPHILS % 0.6 % (0.0-1.0); EOSINOPHILS # (AUTO) 0.2 (0.0-0.4); EOSINOPHILS % 3.8 % (0.0-6.0); HEMATOCRIT 28.4 % (38.2-49.6); LYMPHOCYTES # (AUTO) 0.6 (1.0-3.2); LYMPHOCYTES % 9.5 % (18.0-39.1); MEAN CORPUSCULAR HEMOGLOBIN 29.4 pg (28-32); MEAN CORPUSCULAR HGB CONC 28.2 g/dL (31-35); MEAN CORPUSCULAR VOLUME 104.4 fL (81-99); MONOCYTES # (AUTO) 0.5 (0.2-0.8); MONOCYTES % 7.6 % (4.4-11.3); NEUTROPHILS # (AUTO) 4.8 (2.1-6.9); NEUTROPHILS % 76.1 % (38.7-80.0); PLATELET COUNT 204 x10e3/uL (140-360); RED BLOOD COUNT 2.72 x10e6/uL (4.3-5.7); RED CELL DISTRIBUTION WIDTH 17.8 % (11.7-14.4)
[2020-08-28 05:45] LABS: ANION GAP 15.2 mmol/L (8-16); CALCIUM 9.6 mg/dL (8.4-10.2); CREATININE, SERUM 1.76 mg/dL (0.72-1.25); POTASSIUM 3.2 mmol/L (3.5-5.1)
[2020-08-28] MEDS: LEVOTHYROXINE SODIUM 50 MCG TAB PO SCH (07:30)
[2020-08-28] MEDS: ALBUTEROL/IPRATROPIUM 3 ML NEB NEB PRN (07:53)
[2020-08-28] MEDS: HEPARIN SOD (PORCINE) 5,000 UNIT/ML VIAL SC SCH ×2 (09:00→17:10)
[2020-08-28] MEDS: LIOTHYRONINE SODIUM 5 MCG TAB PO SCH ×2 (09:00→17:07)
[2020-08-28] MEDS: CLOPIDOGREL BISULFATE 75 MG TAB PO SCH ×2 (09:00→17:09)
[2020-08-28] MEDS: FOLIC ACID 1 MG TAB PO SCH ×2 (09:00→17:05)
[2020-08-28] MEDS: FERROUS SULFATE 325 MG TAB PO SCH ×2 (09:00→17:08)
[2020-08-28] MEDS: TAMSULOSIN HCL 0.4 MG CAP PO SCH ×2 (09:00→17:07)
[2020-08-28] MEDS: ACETAZOLAMIDE 250 MG TAB PO SCH ×2 (09:00→17:05)
[2020-08-28] MEDS: BISACODYL 5 MG TAB EC PO SCH ×2 (09:00→17:07)
[2020-08-28] MEDS: DOCUSATE SODIUM 100 MG CAP PO SCH ×2 (09:00→17:05)
[2020-08-28] MEDS: METOLAZONE 5 MG TAB PO SCH ×2 (09:00→17:09)
[2020-08-28] MEDS: CEFEPIME 1GM/NS 0.9% 50 ML 50 ML IV SCH ×2 (10:30→23:30)
[2020-08-28] MEDS ORDERED: DEXTROSE 50% SYRINGE 50 ML IV PRN (11:45)
[2020-08-28] MEDS ORDERED: EPINEPHRINE 2.25% INH NEBU SOL 0.5 ML VIAL INH ONE (12:10)
[2020-08-28] MEDS ORDERED: METHYLPREDNISOLONE SOD SUCC 125 MG/2ML VIAL IV ONE (12:15)
[2020-08-28] MEDS: INSULIN REGULAR, HUMAN 100 UNIT/1 ML 3ML VIAL SQ SCH ×2 (16:44→20:47)
[2020-08-28] MEDS: LIDOCAINE 4% PATCH TP SCH (17:04)
[2020-08-28] MEDS: FAMOTIDINE 20 MG/2 ML VIAL IV SCH (17:05)
[2020-08-28] MEDS: ALLOPURINOL 300 MG TAB PO SCH (20:45)
[2020-08-28] MEDS: LATANOPROST(OPTH) 2.5 ML BTL OU SCH (20:45)
[2020-08-28] MEDS: SERTRALINE HCL 50 MG TAB PO SCH (20:45)
[2020-08-29] VITALS: BP 95/52
[2020-08-29 04:00] VITALS: BP 106/54
[2020-08-29 04:52] LABS: BASOPHILS % 0.5 % (0.0-1.0); EOSINOPHILS # (AUTO) 0.3 (0.0-0.4); EOSINOPHILS % 4.3 % (0.0-6.0); HEMATOCRIT 27.9 % (38.2-49.6); HEMOGLOBIN 7.9 g/dL (14.0-18.0); LYMPHOCYTES # (AUTO) 0.6 (1.0-3.2); LYMPHOCYTES % 9.9 % (18.0-39.1); MEAN CORPUSCULAR HEMOGLOBIN 29.3 pg (28-32); MEAN CORPUSCULAR HGB CONC 28.3 g/dL (31-35); MEAN CORPUSCULAR VOLUME 103.3 fL (81-99); MONOCYTES # (AUTO) 0.5 (0.2-0.8); MONOCYTES % 8.5 % (4.4-11.3); NEUTROPHILS # (AUTO) 4.8 (2.1-6.9); NEUTROPHILS % 74.8 % (38.7-80.0); PLATELET COUNT 211 x10e3/uL (140-360)
[2020-08-29 05:10] LABS: ANION GAP 15.9 mmol/L (8-16); CALCIUM 9.6 mg/dL (8.4-10.2); CREATININE, SERUM 1.59 mg/dL (0.72-1.25)
[2020-08-29 05:20] LABS: POTASSIUM 2.9 mmol/L (3.5-5.1)
[2020-08-29] MEDS: INSULIN REGULAR, HUMAN 100 UNIT/1 ML 3ML VIAL SQ SCH (07:30)
[2020-08-29] MEDS ORDERED: DIPHENHYDRAMINE HCL 30 GM TUBE TOP PRN (08:15)
[2020-08-29] MEDS: DOCUSATE SODIUM 100 MG CAP PO SCH (09:00)
[2020-08-29] MEDS ORDERED: POTASSIUM CHLORIDE 20MEQ/15ML UDC PO ONE (09:00)
[2020-08-29] MEDS: BISACODYL 5 MG TAB EC PO SCH (09:00)
[2020-08-29 09:04] VITALS: BP 119/57
[2020-08-29] MEDS: FAMOTIDINE 20 MG/2 ML VIAL IV SCH (10:05)
[2020-08-29] MEDS: LEVOTHYROXINE SODIUM 50 MCG TAB PO SCH (10:05)
[2020-08-29] MEDS: TAMSULOSIN HCL 0.4 MG CAP PO SCH (10:06)
[2020-08-29] MEDS: METOLAZONE 5 MG TAB PO SCH (10:06)
[2020-08-29] MEDS: FOLIC ACID 1 MG TAB PO SCH (10:06)
[2020-08-29] MEDS: ACETAZOLAMIDE 250 MG TAB PO SCH (10:06)
[2020-08-29] MEDS: CLOPIDOGREL BISULFATE 75 MG TAB PO SCH (10:06)
[2020-08-29] MEDS: FERROUS SULFATE 325 MG TAB PO SCH (10:06)
[2020-08-29] MEDS: LIOTHYRONINE SODIUM 5 MCG TAB PO SCH (10:06)
[2020-08-29] MEDS ORDERED: PANTOPRAZOLE 40 MG 10ML VIAL IV SCH (13:00)
== END 2020-08-29 12:00 | DRG 871 ==
LOC: ER 12:20 → ERHOLD 12:59 → MED/SURG2 14:48 → IMCU 08-22 23:51
PROVIDERS: ADMIT Internal Medicine; ATTEND Internal Medicine
PROC: 30233N1 Transfusion of Nonautologous Red Blood Cells into Peripheral Vein, Percutaneous Approach (ICD-10-PCS; principal; 2020-08-23)
DX: A41.9 Sepsis, unspecified organism (principal); I50.33 Acute on chronic diastolic (congestive) heart failure; J69.0 Pneumonitis due to inhalation of food and vomit; J96.21 Acute and chronic respiratory failure with hypoxia; G93.41 Metabolic encephalopathy; J44.1 Chronic obstructive pulmonary disease with (acute) exacerbation; I13.0 Hypertensive heart and chronic kidney disease with heart failure and stage 1 through stage 4 chronic kidney disease, or unspecified chronic kidney disease; N39.0 Urinary tract infection, site not specified; L97.828 Non-pressure chronic ulcer of other part of left lower leg with other specified severity; L97.818 Non-pressure chronic ulcer of other part of right lower leg with other specified severity; N18.30 Chronic kidney disease, stage 3 unspecified; G20 Parkinson's disease; Z74.09 Other reduced mobility; I48.91 Unspecified atrial fibrillation; Z79.01 Long term (current) use of anticoagulants; E11.43 Type 2 diabetes mellitus with diabetic autonomic (poly)neuropathy; K74.60 Unspecified cirrhosis of liver; Z11.59 Encounter for screening for other viral diseases; L98.491 Non-pressure chronic ulcer of skin of other sites limited to breakdown of skin
CPT/HCPCS: 36415; 36600; 71045; 71250; 80048; 80053; 80162; 81001; 82140; 82550; 82553; 82805; 82948; 83605; 83735; 83880; 84100; 84484; 85025; 86850; 86900; 86920; 87040; 87086; 87186; 93005; 93970; 94640; 94660; 97139; 99251; 99285; J0692; J1160; J1644; J1817; J3370; J7050; J7799; P9016; U0002